=== PATIENT | female | born 1970 | race African-American/Black ===

== ENCOUNTER 2016-07-02 20:34 | Inpatient (IN) | payer MEDICAID ==
[~2016-07-02] VITALS: Ht 170.2 cm; Wt 72.1 kg
[2016-07-02] MEDS: ALBUTEROL FS 2.5 MG/3 ML VIAL.NEB NEB SCH (01:39)
[2016-07-02] MEDS ORDERED: PROPOFOL 100 ML IV ONE (20:39)
[2016-07-02] MEDS ORDERED: IV SET PRIMARY PUMP SET 1 EA INFUS.SET MC ONE ×6 (20:39→23:50)
[2016-07-02 20:50] VITALS: BP 87/45
[2016-07-02 20:59] LABS: KETONES,URINE Trace (NEGATIVE); LEUKOCYTE ESTERASE ,URINE Large (NEGATIVE)
[2016-07-02] MEDS ORDERED: IV NS 0.9% 1,000 ML BAG IV ONE (21:00)
[2016-07-02] MEDS ORDERED: ETOMIDATE 2 MG/ML VIAL IV ONE (21:00)
[2016-07-02] MEDS ORDERED: SUCCINYLCHOLINE CHLORIDE 20 MG/ML VIAL IV ONE (21:00)
[2016-07-02] MEDS ORDERED: PROPOFOL 100 ML IV PRN (21:00)
[2016-07-02] MEDS ORDERED: IV NS 0.9% 1,000 ML ONE (21:06)
[2016-07-02 21:19] LABS: ADD UA MICROSCOPIC YES
[2016-07-02 21:24] LABS: ADD URINE CULTURE YES; RBC,URINE TOO NUMEROUS TO COUN /HPF (0-2); WBC,URINE TOO NUMEROUS TO COUN /HPF (0-3)
[2016-07-02] MEDS ORDERED: ACETAMINOPHEN 650 MG/SUPP.RECT RC ONE ×2 (21:25→21:30)
[2016-07-02] MEDS ORDERED: KETOROLAC TROMETHAMINE INJ 30 MG/ML VIAL ONE (21:26)
[2016-07-02] MEDS ORDERED: IV NS 0.9% 1,000 ML IV ONE (21:30)
[2016-07-02] MEDS ORDERED: PIPERACILLIN /TAZOBACTAM 3.375 G VIAL IV ONE (21:30)
[2016-07-02] MEDS ORDERED: IV LR 1000 ML 1,000 ML IV ONE (21:30)
[2016-07-02] MEDS ORDERED: IV NS 0.9% 2,000 ML ONE (21:30)
[2016-07-02] MEDS ORDERED: KETOROLAC TROMETHAMINE INJ 30 MG/ML VIAL IV ONE (21:30)
[2016-07-02] MEDS ORDERED: PIPERACILLIN /TAZOBACTAM 3.375 G in IV D5W 50 ML IV ONE ×2 (21:30→22:30)
[2016-07-02] MEDS ORDERED: IV D5W 50 ML IV ONE (21:31)
[2016-07-02] MEDS ORDERED: IV LR 1000 ML 1,000 ML ONE (21:38)
[2016-07-02 22:07] LABS: ABG BASE EXCESS -11.5 mmol/L; ABG HCO3 13.5 mmol/L; ABG PCO2 28.1 mmHg (35.0-45.0); ABG PH 7.299 (7.350-7.450); ABG TOTAL HEMOGLOBIN 12.2 G/dL (12.0-16.0); O2Hb 97.9 % (94.0-97.0)
[2016-07-02] MEDS ORDERED: SODIUM BICARBONATE SYR 50 MEQ/50 ML DISP.SYRIN ONE (22:09)
[2016-07-02] MEDS ORDERED: NOREPINEPHRINE 4 MG/4 ML AMPUL IV ONE (22:20)
[2016-07-02] MEDS ORDERED: IV D5W 500 ML IV ONE (22:20)
[2016-07-02] MEDS ORDERED: SODIUM BICARBONATE SYR 50 MEQ/50 ML DISP.SYRIN IV ONE (22:30)
[2016-07-02] MEDS ORDERED: VANCOMYCIN 1 GM in IV D5W 250 ML IV SCH (22:30)
[2016-07-02] MEDS ORDERED: NOREPINEPHRINE 8 MG in IV D5W 500 ML IV PRN (22:30)
[2016-07-02] MEDS ORDERED: IV NS 0.9% 1,000 ML IV PRN (22:30)
[2016-07-02] MEDS ORDERED: ACETAMINOPHEN 650 MG/SUPP.RECT RC PRN (22:30)
[2016-07-02] MEDS ORDERED: ONDANSETRON HCL/PF 4 MG/2 ML VIAL IVP PRN (22:30)
[2016-07-02 22:42] LABS: BASOPHILS % (AUTO) 0.1 % (0.0-2.0); DIFF TOTAL % 100 %; HEMATOCRIT 36 % (33-45); HEMOGLOBIN 11.3 g/dL (11.5-14.8); LYMPHOCYTES # (AUTO) 1.1 /CMM (0.8-4.8); LYMPHOCYTES % (AUTO) 3.9 % (20.0-44.0); MEAN CORPUSCULAR HEMOGLOBIN 28 PG (26.0-33.0); MEAN CORPUSCULAR HGB CONC 32 g/dl (31.0-36.0); MEAN CORPUSCULAR VOLUME 88 fL (82-100); MONOCYTES # (AUTO) 0.6 /CMM (0.1-1.30); MONOCYTES % (AUTO) 2.3 % (2.0-12.0); NEUTROPHILS # (AUTO) 26.2 /CMM (1.8-8.9); NEUTROPHILS % (AUTO) 93.7 % (43.0-81.0); PLATELET COUNT (AUTO) 373 /CMM (150-450); RED BLOOD CELL COUNT(AUTO) 4.04 MIL/uL (4.0-5.2); WHITE BLOOD COUNT (AUTO) 27.9 K/uL (4.3-11.0)
[2016-07-02 22:52] LABS: ANION GAP 16 (5-14); CALCIUM, SERUM 8.4 mg/dL (8.5-10.1); CARBON DIOXIDE 24 mmol/L (21-32); CHLORIDE 117 mmol/L (98-107); CREATININE 4.2 mg/dL (0.6-1.3); GFR 14 mL/min (>60); GLUCOSE 147 mg/dL (74-106); POTASSIUM 3.9 mmol/L (3.5-5.1); SODIUM SERUM 153 mmol/L (136-145); UREA NITROGEN, BLOOD 78 mg/dL (7-18)
[2016-07-02 22:54] LABS: INR 1.24 (0.87-1.13); PROTHROMBIN TIME 13.4 SECS (9.5-12.7)
[2016-07-02 23:01] LABS: TROPONIN I 0.781 ng/mL (0.00-0.056)
[2016-07-02] MEDS ORDERED: ASPIRIN 300 MG/SUPP.RECT RC ONE (23:03)
[2016-07-02 23:04] LABS: ALANINE AMINOTRANSFERASE 23 U/L (12-78); ALBUMIN 1.9 g/dL (3.4-5.0); ASPARTATE AMINOTRANSFERASE 31 U/L (15-37); BILIRUBIN,DIRECT 0.1 mg/dL (0.0-0.2); BILIRUBIN,TOTAL 0.4 mg/dL (0.2-1.0); INDIRECT BILIRUBIN 0.3 mg/dL (0.0-1.1); TOTAL PROTEIN, SERUM 7.3 g/dL (6.4-8.2)
[2016-07-02 23:15] LABS: LACTIC ACID 5.2 mmol/L (0.4-2.0)
[2016-07-02 23:28] LABS: *LACTIC ACID REFLEX FLAG YES
[2016-07-02] MEDS ORDERED: DEXTROSE 50%-WATER 50 ML DISP.SYRIN IV PRN (23:30)
[2016-07-02] MEDS ORDERED: ASPIRIN 300 MG/SUPP.RECT RC PRN (23:30)
[2016-07-02 23:44] LABS: ANISOCYTOSIS 1+; BAND % (MANUAL) 12 % (0.0-5.0); BASOPHILS % (MANUAL) 0 % (0.0-2.0); EOSINOPHILS % (MANUAL) 0 % (0-4); LYMPHOCYTES % (MANUAL) 14 % (16-48); PLATELET ESTIMATE ADEQUATE
[2016-07-02 23:46] VITALS: BP 96/58
[2016-07-02] MEDS ORDERED: IV D5W 250 ML IV ONE (23:49)
[2016-07-02] MEDS ORDERED: VANCOMYCIN 1 GM VIAL ONE (23:49)
[2016-07-03] VITALS (111 sets, daily range): BP systolic 60–145; BP diastolic 36–78
[2016-07-03] MEDS ORDERED: IV NS 0.9% 2,000 ML ONE (00:01)
[2016-07-03] MEDS ORDERED: IV SET PRIMARY PUMP SET 1 EA INFUS.SET MC ONE ×5 (00:01→19:54)
[2016-07-03] MEDS: BLOOD SUGAR DIAGNOSTIC 1 EACH STRIP IN SCH ×4 (00:12→17:58)
[2016-07-03] MEDS ORDERED: INSULIN REGULAR, HUMAN 100 UNIT/ML 10 ML VIAL ONE (00:19)
[2016-07-03] MEDS: INSULIN REGULAR, HUMAN 100 UNIT/ML 3 ML VIAL SQ PRN ×4 (00:29→18:00)
[2016-07-03] MEDS ORDERED: IV NS 0.9% 1,000 ML BAG IV PRN (00:30)
[2016-07-03] MEDS ORDERED: IV NS 0.9% 1,000 ML ONE (01:05)
[2016-07-03 01:11] LABS: BASOPHILS % (AUTO) 0.1 % (0.0-2.0); DIFF TOTAL % 100 %; EOSINOPHILS % (AUTO) 0.1 % (0.0-6.0); HEMATOCRIT 36 % (33-45); HEMOGLOBIN 11.8 g/dL (11.5-14.8); LYMPHOCYTES # (AUTO) 2.5 /CMM (0.8-4.8); LYMPHOCYTES % (AUTO) 9.8 % (20.0-44.0); MEAN CORPUSCULAR HEMOGLOBIN 29 PG (26.0-33.0); MEAN CORPUSCULAR HGB CONC 33 g/dl (31.0-36.0); MEAN CORPUSCULAR VOLUME 88 fL (82-100); MONOCYTES # (AUTO) 0.8 /CMM (0.1-1.30); MONOCYTES % (AUTO) 3.2 % (2.0-12.0); NEUTROPHILS % (AUTO) 86.8 % (43.0-81.0); PLATELET COUNT (AUTO) 380 /CMM (150-450); WHITE BLOOD COUNT (AUTO) 25.3 K/uL (4.3-11.0)
[2016-07-03 01:19] LABS: CREATININE 4.1 mg/dL (0.6-1.3); POTASSIUM 3.5 mmol/L (3.5-5.1)
[2016-07-03 01:26] LABS: ALBUMIN 1.9 g/dL (3.4-5.0); BILIRUBIN,DIRECT 0.4 mg/dL (0.0-0.2); BILIRUBIN,TOTAL 0.9 mg/dL (0.2-1.0); INDIRECT BILIRUBIN 0.5 mg/dL (0.0-1.1); TOTAL PROTEIN, SERUM 7.5 g/dL (6.4-8.2)
[2016-07-03] MEDS ORDERED: ALBUTEROL FS 2.5 MG/3 ML VIAL.NEB ONE (01:38)
[2016-07-03 01:43] LABS: CREATINE KINASE MB 0.8 ng/mL (0-3.6)
[2016-07-03 01:51] LABS: INR 1.21 (0.87-1.13); PROTHROMBIN TIME 13.1 SECS (9.5-12.7)
[2016-07-03] MEDS: IV NS 0.9% 1,000 ML IV PRN ×3 (02:46→22:32)
[2016-07-03] MEDS: ALBUTEROL FS 2.5 MG/3 ML VIAL.NEB NEB SCH ×7 (02:52→23:30)
[2016-07-03] MEDS: PROPOFOL 100 ML IV PRN ×3 (04:13→22:13)
[2016-07-03] MEDS ORDERED: PIPERACILLIN /TAZOBACTAM 2.25 G VIAL IV ONE (04:31)
[2016-07-03] MEDS ORDERED: IV D5W 50 ML IV ONE (04:31)
[2016-07-03] MEDS ORDERED: SECONDARY IV SET 1 EA INFUS.SET MC ONE ×4 (04:31→15:48)
[2016-07-03] MEDS: PIPERACILLIN /TAZOBACTAM 2.25 G in IV D5W 50 ML IV SCH ×3 (04:45→21:00)
[2016-07-03 05:14] LABS: DIFF TOTAL % 100 %; HEMATOCRIT 36 % (33-45); HEMOGLOBIN 11.5 g/dL (11.5-14.8); LYMPHOCYTES # (AUTO) 3.6 /CMM (0.8-4.8); LYMPHOCYTES % (AUTO) 13.2 % (20.0-44.0); MEAN CORPUSCULAR HEMOGLOBIN 28 PG (26.0-33.0); MEAN CORPUSCULAR HGB CONC 32 g/dl (31.0-36.0); MEAN CORPUSCULAR VOLUME 88 fL (82-100); MONOCYTES # (AUTO) 0.8 /CMM (0.1-1.30); MONOCYTES % (AUTO) 2.9 % (2.0-12.0); NEUTROPHILS # (AUTO) 22.9 /CMM (1.8-8.9); NEUTROPHILS % (AUTO) 83.9 % (43.0-81.0); PLATELET COUNT (AUTO) 343 /CMM (150-450); RED BLOOD CELL COUNT(AUTO) 4.08 MIL/uL (4.0-5.2); WHITE BLOOD COUNT (AUTO) 27.4 K/uL (4.3-11.0)
[2016-07-03 05:27] LABS: THYROID STIMULATING HORMONE 1.481 uIU/mL (0.358-3.74)
[2016-07-03 05:32] LABS: ALBUMIN 1.8 g/dL (3.4-5.0); BILIRUBIN,TOTAL 0.5 mg/dL (0.2-1.0); CALCIUM, SERUM 7.6 mg/dL (8.5-10.1); CREATININE 3.6 mg/dL (0.6-1.3); PHOSPHORUS 1.8 mg/dL (2.5-4.9); POTASSIUM 3.5 mmol/L (3.5-5.1); TOTAL PROTEIN, SERUM 7.4 g/dL (6.4-8.2)
[2016-07-03 05:48] LABS: LACTIC ACID 3.5 mmol/L (0.4-2.0)
[2016-07-03 06:14] LABS: ANISOCYTOSIS 1+; BAND % (MANUAL) 10 % (0.0-5.0); BASOPHILS % (MANUAL) 0 % (0.0-2.0); EOSINOPHILS % (MANUAL) 0 % (0-4); LYMPHOCYTES % (MANUAL) 21 % (16-48); PLATELET ESTIMATE ADEQUATE
[2016-07-03] MEDS ORDERED: OXCA300O5 GT (07:45)
[2016-07-03] MEDS ORDERED: MULT-24 GT (07:45)
[2016-07-03] MEDS ORDERED: DOCU50LI GT (07:45)
[2016-07-03] MEDS ORDERED: ACID1TAB12 GT (07:45)
[2016-07-03] MEDS ORDERED: MAGN400O6 GT (07:45)
[2016-07-03] MEDS ORDERED: FAMO20TA8 GT (07:45)
[2016-07-03] MEDS ORDERED: ASCO500S2 GT (07:45)
[2016-07-03] MEDS ORDERED: CALC-911 GT (07:45)
[2016-07-03] MEDS ORDERED: INSU100V3 SQ (07:45)
[2016-07-03] MEDS ORDERED: ASPI81TA2 GT (07:45)
[2016-07-03] MEDS ORDERED: TOPI-67 GT (07:45)
[2016-07-03] MEDS ORDERED: ACET650S26 GT (07:45)
[2016-07-03] MEDS ORDERED: LEVE100S GT (07:45)
[2016-07-03] MEDS: NOREPINEPHRINE 16 MG in IV D5W 500 ML IV PRN (07:46)
[2016-07-03] MEDS ORDERED: VANCOMYCIN 1 GM in IV D5W 250 ML IV SCH (07:48)
[2016-07-03] MEDS: ACETAMINOPHEN 325 MG TABLET PO PRN ×2 (07:50→17:58)
[2016-07-03] MEDS: ASPIRIN 81 MG TAB.CHEW PO SCH (07:50)
[2016-07-03] MEDS: PANTOPRAZOLE 40 MG VIAL IV SCH (07:50)
[2016-07-03] MEDS: HEPARIN SODIUM, PORCINE 5000 UNITS/1 ML VIAL SQ SCH ×2 (07:52→21:01)
[2016-07-03 09:54] LABS: ABG BASE EXCESS -6.3 mmol/L; ABG HCO3 17.3 mmol/L; ABG PCO2 28.9 mmHg (35.0-45.0); ABG PH 7.396 (7.350-7.450); ABG TOTAL HEMOGLOBIN 11.7 G/dL (12.0-16.0); ALLEN TEST Pass; O2Hb 91.6 % (94.0-97.0)
[2016-07-03] MEDS: Z GUARD REMEDY 2 OZ OINT TP SCH ×2 (10:30→17:58)
[2016-07-03] MEDS ORDERED: LEVOFLOXACIN 500 MG /D5W 100ML 500 MG in PREMIX 1 EA IV ONE ×6 (12:00)
[2016-07-03 12:23] LABS: CHOLESTEROL 88 mg/dL (<200); HDL CHOLESTEROL 12 mg/dL (40-60); LDL 43 mg/dL (0-99); TRIGLYCERIDES 339 mg/dL (30-150)
[2016-07-03] MEDS ORDERED: IV NS 0.9% 250 ML BAG IV ONE (12:30)
[2016-07-03] MEDS ORDERED: ETOMIDATE 2 MG/ML VIAL IV ONE (13:54)
[2016-07-03] MEDS ORDERED: FEE PK DOSING 1 MIN EA MC ONE (14:32)
[2016-07-03] MEDS ORDERED: POTASSIUM PHOSPHATE MM 15 MMOL in IV D5W 250 ML IV SCH (20:00)
[2016-07-04] VITALS (92 sets, daily range): BP systolic 65–150; BP diastolic 40–92
[2016-07-04] MEDS: INSULIN REGULAR, HUMAN 100 UNIT/ML 3 ML VIAL SQ PRN ×4 (00:11→17:18)
[2016-07-04] MEDS: BLOOD SUGAR DIAGNOSTIC 1 EACH STRIP IN SCH ×5 (00:24→23:47)
[2016-07-04] MEDS: ALBUTEROL FS 2.5 MG/3 ML VIAL.NEB NEB SCH ×6 (03:19→23:39)
[2016-07-04 04:54] LABS: DIFF TOTAL % 100 %; EOSINOPHILS # (AUTO) 0.1 /CMM (0.0-0.7); EOSINOPHILS % (AUTO) 0.2 % (0.0-6.0); HEMATOCRIT 31 % (33-45); HEMOGLOBIN 10.1 g/dL (11.5-14.8); LYMPHOCYTES # (AUTO) 1.5 /CMM (0.8-4.8); LYMPHOCYTES % (AUTO) 4.8 % (20.0-44.0); MEAN CORPUSCULAR HEMOGLOBIN 29 PG (26.0-33.0); MEAN CORPUSCULAR HGB CONC 33 g/dl (31.0-36.0); MEAN CORPUSCULAR VOLUME 88 fL (82-100); MONOCYTES # (AUTO) 0.5 /CMM (0.1-1.30); MONOCYTES % (AUTO) 1.7 % (2.0-12.0); NEUTROPHILS # (AUTO) 28.9 /CMM (1.8-8.9); NEUTROPHILS % (AUTO) 93.3 % (43.0-81.0); PLATELET COUNT (AUTO) 254 /CMM (150-450); RED BLOOD CELL COUNT(AUTO) 3.52 MIL/uL (4.0-5.2)
[2016-07-04] MEDS: PROPOFOL 100 ML IV PRN ×3 (05:00→18:20)
[2016-07-04] MEDS: PIPERACILLIN /TAZOBACTAM 2.25 G in IV D5W 50 ML IV SCH ×3 (05:00→21:34)
[2016-07-04 05:05] LABS: WHITE BLOOD COUNT (AUTO) 30.9 K/uL (4.3-11.0)
[2016-07-04 05:14] LABS: CALCIUM, SERUM 7.4 mg/dL (8.5-10.1); CREATININE 2.8 mg/dL (0.6-1.3); POTASSIUM 3.7 mmol/L (3.5-5.1)
[2016-07-04] MEDS: NOREPINEPHRINE 16 MG in IV D5W 500 ML IV PRN ×2 (05:18→13:21)
[2016-07-04 05:23] LABS: LACTIC ACID 2.9 mmol/L (0.4-2.0)
[2016-07-04 05:44] LABS: *LACTIC ACID REFLEX FLAG YES
[2016-07-04 05:59] LABS: BAND % (MANUAL) 38 % (0.0-5.0); LYMPHOCYTES % (MANUAL) 3 % (16-48)
[2016-07-04 06:00] LABS: ANISOCYTOSIS 1+; BASOPHILS % (MANUAL) 0 % (0.0-2.0); EOSINOPHILS % (MANUAL) 0 % (0-4); PLATELET ESTIMATE ADEQUATE
[2016-07-04] MEDS: IV NS 0.9% 1,000 ML IV PRN ×2 (07:36→16:48)
[2016-07-04] MEDS: PANTOPRAZOLE 40 MG VIAL IV SCH (08:04)
[2016-07-04] MEDS: ASPIRIN 81 MG TAB.CHEW PO SCH (08:04)
[2016-07-04] MEDS: HEPARIN SODIUM, PORCINE 5000 UNITS/1 ML VIAL SQ SCH ×2 (08:16→21:37)
[2016-07-04] MEDS ORDERED: SECONDARY IV SET 1 EA INFUS.SET MC ONE (08:16)
[2016-07-04] MEDS: Z GUARD REMEDY 2 OZ OINT TP SCH ×2 (08:17→16:11)
[2016-07-04] MEDS: ACETAMINOPHEN 325 MG TABLET PO PRN (08:19)
[2016-07-04] MEDS ORDERED: DOCUSATE SODIUM LIQ 100 MG/10 ML UDC GT PRN (08:30)
[2016-07-04] MEDS ORDERED: ASPIRIN 81 MG TAB.CHEW GT SCH (09:00)
[2016-07-04] MEDS ORDERED: ASCORBIC ACID SYRUP 500 MG/5 ML UDC GT SCH (09:00)
[2016-07-04] MEDS: OXCARBAZEPINE 150 MG TABLET GT SCH ×2 (10:02→16:22)
[2016-07-04] MEDS: ACIDOPHILUS/BULGARICUS 1 EACH TAB.CHEW GT SCH ×2 (10:02→16:22)
[2016-07-04] MEDS: LEVETIRACETAM SOL (5 ML) 100 MG/ML UDC GT SCH ×2 (10:02→16:22)
[2016-07-04] MEDS: TOPIRAMATE 25 MG TABLET GT SCH ×2 (10:02→16:22)
[2016-07-04] MEDS: MULTIVITAMINS,THERAPEUTIC 1 UDTAB TABLET GT SCH (10:02)
[2016-07-04] MEDS: CALCIUM CARBONATE 500 MG TAB.CHEW GT SCH ×2 (10:11→16:22)
[2016-07-04] MEDS: ASCORBIC ACID 500 MG TABLET GT SCH (10:20)
[2016-07-04] MEDS ORDERED: VANCOMYCIN 1 GM in IV D5W 250 ML IV SCH (11:00)
[2016-07-04] MEDS ORDERED: IV SET PRIMARY PUMP SET 1 EA INFUS.SET MC ONE (11:29)
[2016-07-04] MEDS: MUPIROCIN OINT 2% 22 GM TUBE SCH (21:35)
[2016-07-05] VITALS (76 sets, daily range): BP systolic 88–134; BP diastolic 29–78
[2016-07-05] MEDS ORDERED: IV SET PRIMARY PUMP SET 1 EA INFUS.SET MC ONE ×4 (02:35→20:36)
[2016-07-05] MEDS ORDERED: IV D5W 250 ML IV ONE ×2 (02:35→20:36)
[2016-07-05] MEDS: PROPOFOL 100 ML IV PRN ×4 (02:35→21:42)
[2016-07-05] MEDS: IV NS 0.9% 1,000 ML IV PRN ×2 (03:27→23:32)
[2016-07-05] MEDS: ALBUTEROL FS 2.5 MG/3 ML VIAL.NEB NEB SCH ×6 (03:50→23:35)
[2016-07-05 04:55] LABS: WHITE BLOOD COUNT (AUTO) 28.2 K/uL (4.3-11.0)
[2016-07-05 04:56] LABS: DIFF TOTAL % 100 %; EOSINOPHILS # (AUTO) 0.1 /CMM (0.0-0.7); EOSINOPHILS % (AUTO) 0.3 % (0.0-6.0); HEMATOCRIT 25 % (33-45); HEMOGLOBIN 8.1 g/dL (11.5-14.8); LYMPHOCYTES % (AUTO) 3.7 % (20.0-44.0); MEAN CORPUSCULAR HEMOGLOBIN 28 PG (26.0-33.0); MEAN CORPUSCULAR HGB CONC 33 g/dl (31.0-36.0); MEAN CORPUSCULAR VOLUME 87 fL (82-100); MONOCYTES # (AUTO) 0.4 /CMM (0.1-1.30); MONOCYTES % (AUTO) 1.4 % (2.0-12.0); NEUTROPHILS # (AUTO) 26.7 /CMM (1.8-8.9); NEUTROPHILS % (AUTO) 94.6 % (43.0-81.0); PLATELET COUNT (AUTO) 238 /CMM (150-450); RED BLOOD CELL COUNT(AUTO) 2.86 MIL/uL (4.0-5.2)
[2016-07-05 05:03] LABS: CALCIUM, SERUM 7.7 mg/dL (8.5-10.1); CREATININE 2.4 mg/dL (0.6-1.3); POTASSIUM 3.1 mmol/L (3.5-5.1)
[2016-07-05 05:37] LABS: BAND % (MANUAL) 3 % (0.0-5.0); LYMPHOCYTES % (MANUAL) 6 % (16-48); PLATELET ESTIMATE ADEQUATE
[2016-07-05 05:39] LABS: ANISOCYTOSIS 1+
[2016-07-05] MEDS: PIPERACILLIN /TAZOBACTAM 2.25 G in IV D5W 50 ML IV SCH ×3 (05:52→20:35)
[2016-07-05] MEDS: BLOOD SUGAR DIAGNOSTIC 1 EACH STRIP IN SCH ×3 (06:25→17:22)
[2016-07-05] MEDS: INSULIN REGULAR, HUMAN 100 UNIT/ML 3 ML VIAL SQ PRN ×2 (06:33→11:30)
[2016-07-05] MEDS: CALCIUM CARBONATE 500 MG TAB.CHEW GT SCH ×2 (08:51→17:16)
[2016-07-05] MEDS: PANTOPRAZOLE 40 MG VIAL IV SCH (08:51)
[2016-07-05] MEDS: ACIDOPHILUS/BULGARICUS 1 EACH TAB.CHEW GT SCH ×2 (08:51→17:16)
[2016-07-05] MEDS: OXCARBAZEPINE 150 MG TABLET GT SCH ×2 (08:51→17:16)
[2016-07-05] MEDS: TOPIRAMATE 25 MG TABLET GT SCH ×2 (08:52→17:16)
[2016-07-05] MEDS: ASCORBIC ACID 500 MG TABLET GT SCH (08:52)
[2016-07-05] MEDS: MULTIVITAMINS,THERAPEUTIC 1 UDTAB TABLET GT SCH (08:52)
[2016-07-05] MEDS: LEVETIRACETAM SOL (5 ML) 100 MG/ML UDC GT SCH ×2 (08:52→17:16)
[2016-07-05] MEDS: ASPIRIN 81 MG TAB.CHEW PO SCH (08:52)
[2016-07-05] MEDS: MUPIROCIN OINT 2% 22 GM TUBE SCH ×2 (08:53→20:36)
[2016-07-05] MEDS: Z GUARD REMEDY 2 OZ OINT TP SCH ×2 (08:53→17:16)
[2016-07-05] MEDS: ACETAMINOPHEN 325 MG TABLET PO PRN (08:55)
[2016-07-05] MEDS: HEPARIN SODIUM, PORCINE 5000 UNITS/1 ML VIAL SQ SCH ×2 (08:58→20:51)
[2016-07-05] MEDS ORDERED: POTASSIUM CHLORIDE 20 MEQ TAB.PRT.SR PO ONE (09:00)
[2016-07-05] MEDS: VANCOMYCIN 1 GM in IV D5W 250 ML IV SCH (10:57)
[2016-07-05 11:46] LABS: ABG BASE EXCESS -7.8 mmol/L; ABG HCO3 16.5 mmol/L; ABG PCO2 29.7 mmHg (35.0-45.0); ABG PH 7.362 (7.350-7.450); ABG PO2 71.9 mmHg (75.0-100.0); ABG TOTAL HEMOGLOBIN 11.3 G/dL (12.0-16.0); ALLEN TEST Pass; AaDO2 179.1 mmHg; O2Hb 91.9 % (94.0-97.0)
[2016-07-05] MEDS ORDERED: LEVOFLOXACIN 250 MG /D5W 50 ML 250 MG in PREMIX 1 EA IV SCH (12:00)
[2016-07-05] MEDS: MICAFUNGIN SODIUM 100 MG in IV NS 0.9% 100 ML IV SCH (13:11)
[2016-07-05] MEDS: NOREPINEPHRINE 16 MG in IV D5W 500 ML IV PRN (17:35)
[2016-07-06] VITALS (78 sets, daily range): BP systolic 88–135; BP diastolic 23–65
[2016-07-06] MEDS: BLOOD SUGAR DIAGNOSTIC 1 EACH STRIP IN SCH ×5 (00:02→23:16)
[2016-07-06] MEDS: INSULIN REGULAR, HUMAN 100 UNIT/ML 3 ML VIAL SQ PRN ×3 (00:06→13:03)
[2016-07-06] MEDS: ALBUTEROL FS 2.5 MG/3 ML VIAL.NEB NEB SCH ×5 (02:38→20:16)
[2016-07-06] MEDS: PIPERACILLIN /TAZOBACTAM 2.25 G in IV D5W 50 ML IV SCH (04:28)
[2016-07-06 04:56] LABS: DIFF TOTAL % 100 %; EOSINOPHILS # (AUTO) 0.4 /CMM (0.0-0.7); EOSINOPHILS % (AUTO) 1.8 % (0.0-6.0); HEMATOCRIT 24 % (33-45); HEMOGLOBIN 7.9 g/dL (11.5-14.8); LYMPHOCYTES # (AUTO) 1.4 /CMM (0.8-4.8); LYMPHOCYTES % (AUTO) 5.9 % (20.0-44.0); MEAN CORPUSCULAR HEMOGLOBIN 28 PG (26.0-33.0); MEAN CORPUSCULAR HGB CONC 33 g/dl (31.0-36.0); MEAN CORPUSCULAR VOLUME 87 fL (82-100); MONOCYTES # (AUTO) 0.5 /CMM (0.1-1.30); NEUTROPHILS # (AUTO) 20.9 /CMM (1.8-8.9); NEUTROPHILS % (AUTO) 90.3 % (43.0-81.0); PLATELET COUNT (AUTO) 234 /CMM (150-450); WHITE BLOOD COUNT (AUTO) 23.2 K/uL (4.3-11.0)
[2016-07-06 04:58] LABS: CALCIUM, SERUM 7.9 mg/dL (8.5-10.1)
[2016-07-06 05:18] LABS: POTASSIUM 2.8 mmol/L (3.5-5.1)
[2016-07-06] MEDS: PROPOFOL 100 ML IV PRN ×4 (05:19→22:46)
[2016-07-06 05:46] LABS: ANISOCYTOSIS 1+; EOSINOPHILS % (MANUAL) 3 % (0-4); LYMPHOCYTES % (MANUAL) 10 % (16-48); PLATELET ESTIMATE ADEQUATE
[2016-07-06] MEDS ORDERED: POTASSIUM CL. PREMIX PERIPHER. 50 ML ONE (06:22)
[2016-07-06] MEDS ORDERED: IV SET PRIMARY PUMP SET 1 EA INFUS.SET MC ONE ×4 (06:22→22:46)
[2016-07-06] MEDS: POTASSIUM CL. PREMIX PERIPHER. 50 ML IV SCH ×4 (06:26→11:48)
[2016-07-06] MEDS: LEVETIRACETAM SOL (5 ML) 100 MG/ML UDC GT SCH ×2 (08:43→16:23)
[2016-07-06] MEDS: ACIDOPHILUS/BULGARICUS 1 EACH TAB.CHEW GT SCH ×2 (08:43→16:22)
[2016-07-06] MEDS: MULTIVITAMINS,THERAPEUTIC 1 UDTAB TABLET GT SCH (08:44)
[2016-07-06] MEDS: TOPIRAMATE 25 MG TABLET GT SCH ×2 (08:45→16:21)
[2016-07-06] MEDS: OXCARBAZEPINE 150 MG TABLET GT SCH ×2 (08:45→16:22)
[2016-07-06] MEDS: CALCIUM CARBONATE 500 MG TAB.CHEW GT SCH ×2 (08:46→16:22)
[2016-07-06] MEDS: ASCORBIC ACID 500 MG TABLET GT SCH (08:46)
[2016-07-06] MEDS: MUPIROCIN OINT 2% 22 GM TUBE SCH ×2 (08:47→20:12)
[2016-07-06] MEDS: ASPIRIN 81 MG TAB.CHEW PO SCH (08:48)
[2016-07-06 08:49] LABS: ABG BASE EXCESS -8.7 mmol/L; ABG HCO3 15.9 mmol/L; ABG NOTIFIED BY AS RRT.; ABG PCO2 29.5 mmHg (35.0-45.0); ABG TOTAL HEMOGLOBIN 8.3 G/dL (12.0-16.0); ALLEN TEST Pass; AaDO2 219.3 mmHg; O2Hb 94.5 % (94.0-97.0)
[2016-07-06] MEDS: HEPARIN SODIUM, PORCINE 5000 UNITS/1 ML VIAL SQ SCH ×2 (08:50→20:11)
[2016-07-06] MEDS ORDERED: POTASSIUM CL. PREMIX PERIPHER. 50 ML IV SCH (09:00)
[2016-07-06] MEDS: Z GUARD REMEDY 2 OZ OINT TP SCH ×2 (09:00→17:00)
[2016-07-06] MEDS: MICAFUNGIN SODIUM 100 MG in IV NS 0.9% 100 ML IV SCH (09:03)
[2016-07-06] MEDS ORDERED: IV D5W 250 ML IV ONE ×2 (10:01→13:41)
[2016-07-06] MEDS: PANTOPRAZOLE 40 MG VIAL IV SCH (10:06)
[2016-07-06] MEDS: VANCOMYCIN 1 GM in IV D5W 250 ML IV SCH (10:24)
[2016-07-06] MEDS: Z GUARD REMEDY 2 OZ OINT TP PRN ×2 (12:45→12:48)
[2016-07-06] MEDS: CLOTRIMAZOLE 1% 15 GM TUBE TP SCH ×2 (12:48→16:24)
[2016-07-06] MEDS: IV NS 0.9% 1,000 ML IV PRN ×2 (13:38→23:17)
[2016-07-06] MEDS: CEFEPIME 2 GM in IV D5W 100 ML IV SCH (17:21)
[2016-07-06] MEDS ORDERED: CEFEPIME 1 GM VIAL IV SCH ×2 (21:00)
[2016-07-07] VITALS (99 sets, daily range): BP systolic 84–134; BP diastolic 43–78
[2016-07-07] MEDS: ALBUTEROL FS 2.5 MG/3 ML VIAL.NEB NEB SCH ×6 (00:13→20:06)
[2016-07-07 05:00] LABS: CALCIUM, SERUM 7.8 mg/dL (8.5-10.1); CREATININE 1.8 mg/dL (0.6-1.3); POTASSIUM 3.1 mmol/L (3.5-5.1)
[2016-07-07 05:13] LABS: BASOPHILS % (AUTO) 0.1 % (0.0-2.0); DIFF TOTAL % 100 %; EOSINOPHILS # (AUTO) 0.5 /CMM (0.0-0.7); HEMATOCRIT 24 % (33-45); HEMOGLOBIN 7.7 g/dL (11.5-14.8); LYMPHOCYTES # (AUTO) 1.9 /CMM (0.8-4.8); MEAN CORPUSCULAR HEMOGLOBIN 29 PG (26.0-33.0); MEAN CORPUSCULAR HGB CONC 32 g/dl (31.0-36.0); MEAN CORPUSCULAR VOLUME 88 fL (82-100); MONOCYTES # (AUTO) 0.5 /CMM (0.1-1.30); NEUTROPHILS # (AUTO) 20.7 /CMM (1.8-8.9); NEUTROPHILS % (AUTO) 87.9 % (43.0-81.0); PLATELET COUNT (AUTO) 250 /CMM (150-450); RED BLOOD CELL COUNT(AUTO) 2.69 MIL/uL (4.0-5.2); WHITE BLOOD COUNT (AUTO) 23.5 K/uL (4.3-11.0)
[2016-07-07] MEDS: CEFEPIME 2 GM in IV D5W 100 ML IV SCH ×2 (05:47→17:31)
[2016-07-07] MEDS: BLOOD SUGAR DIAGNOSTIC 1 EACH STRIP IN SCH ×4 (05:47→23:29)
[2016-07-07] MEDS ORDERED: IV NS 0.9% 500 ML IV ONE (08:12)
[2016-07-07] MEDS ORDERED: IV SET PRIMARY PUMP SET 1 EA INFUS.SET MC ONE (08:30)
[2016-07-07] MEDS ORDERED: SECONDARY IV SET 1 EA INFUS.SET MC ONE (08:31)
[2016-07-07] MEDS ORDERED: IV NS 0.9% 250 ML IV ONE (08:31)
[2016-07-07] MEDS ORDERED: BLOOD IV SET 1 EA INFUS.SET MC ONE (08:31)
[2016-07-07] MEDS: PANTOPRAZOLE 40 MG VIAL IV SCH (08:39)
[2016-07-07] MEDS: TOPIRAMATE 25 MG TABLET GT SCH ×2 (08:39→16:17)
[2016-07-07] MEDS: LEVETIRACETAM SOL (5 ML) 100 MG/ML UDC GT SCH ×2 (08:39→16:17)
[2016-07-07] MEDS: HEPARIN SODIUM, PORCINE 5000 UNITS/1 ML VIAL SQ SCH ×2 (08:39→21:08)
[2016-07-07] MEDS: OXCARBAZEPINE 150 MG TABLET GT SCH ×2 (08:39→16:17)
[2016-07-07] MEDS: ASCORBIC ACID 500 MG TABLET GT SCH (08:39)
[2016-07-07] MEDS: ASPIRIN 81 MG TAB.CHEW PO SCH (08:40)
[2016-07-07] MEDS: MULTIVITAMINS,THERAPEUTIC 1 UDTAB TABLET GT SCH (08:40)
[2016-07-07] MEDS: CLOTRIMAZOLE 1% 15 GM TUBE TP SCH ×2 (08:40→16:18)
[2016-07-07] MEDS: CALCIUM CARBONATE 500 MG TAB.CHEW GT SCH ×2 (08:40→16:17)
[2016-07-07] MEDS: MUPIROCIN OINT 2% 22 GM TUBE SCH ×2 (08:40→21:10)
[2016-07-07] MEDS: MICAFUNGIN SODIUM 100 MG in IV NS 0.9% 100 ML IV SCH (08:40)
[2016-07-07] MEDS: ACIDOPHILUS/BULGARICUS 1 EACH TAB.CHEW GT SCH ×2 (09:07→16:17)
[2016-07-07] MEDS: Z GUARD REMEDY 2 OZ OINT TP SCH ×3 (09:09→16:18)
[2016-07-07] MEDS: VANCOMYCIN 1 GM in IV D5W 250 ML IV SCH (10:24)
[2016-07-07] MEDS ORDERED: FUROSEMIDE 40 MG/4 ML VIAL IV ONE (10:30)
[2016-07-07] MEDS ORDERED: POTASSIUM CHLORIDE 20 MEQ POWDER PACKET GT ONE (10:30)
[2016-07-07] MEDS: PROPOFOL 100 ML IV PRN ×3 (12:48→22:07)
[2016-07-07] MEDS ORDERED: LORAZEPAM INJ 2 MG/ML VIAL IV PRN (13:00)
[2016-07-07 14:39] LABS: ABG PCO2 31.3 mmHg (35.0-45.0); ABG PH 7.326 (7.350-7.450); ABG PO2 77.3 mmHg (75.0-100.0); ABG TOTAL HEMOGLOBIN 9.2 G/dL (12.0-16.0); ALLEN TEST Pass; AaDO2 171.9 mmHg; O2Hb 91.9 % (94.0-97.0)
[2016-07-07] MEDS: IV D5W 1,000 ML IV PRN (15:55)
[2016-07-08] VITALS (67 sets, daily range): BP systolic 84–128; BP diastolic 36–76
[2016-07-08] MEDS: ALBUTEROL FS 2.5 MG/3 ML VIAL.NEB NEB SCH ×7 (00:10→22:50)
[2016-07-08] MEDS: PROPOFOL 100 ML IV PRN ×3 (04:25→21:42)
[2016-07-08] MEDS ORDERED: VANCOMYCIN 1 GM in IV D5W 250 ML IV SCH (05:00)
[2016-07-08 05:06] LABS: CALCIUM, SERUM 8.1 mg/dL (8.5-10.1); CREATININE 2.2 mg/dL (0.6-1.3); POTASSIUM 3.3 mmol/L (3.5-5.1)
[2016-07-08] MEDS: BLOOD SUGAR DIAGNOSTIC 1 EACH STRIP IN SCH ×4 (05:57→23:50)
[2016-07-08] MEDS: CEFEPIME 2 GM in IV D5W 100 ML IV SCH ×2 (06:17→17:35)
[2016-07-08] MEDS: OXCARBAZEPINE 150 MG TABLET GT SCH ×2 (08:02→17:34)
[2016-07-08] MEDS: LEVETIRACETAM SOL (5 ML) 100 MG/ML UDC GT SCH ×2 (08:02→17:34)
[2016-07-08] MEDS: ASPIRIN 81 MG TAB.CHEW PO SCH (08:02)
[2016-07-08] MEDS: TOPIRAMATE 25 MG TABLET GT SCH ×2 (08:02→17:34)
[2016-07-08] MEDS: PANTOPRAZOLE 40 MG VIAL IV SCH (08:02)
[2016-07-08] MEDS: Z GUARD REMEDY 2 OZ OINT TP SCH ×2 (08:03→17:35)
[2016-07-08] MEDS: MULTIVITAMINS,THERAPEUTIC 1 UDTAB TABLET GT SCH (08:03)
[2016-07-08] MEDS: CALCIUM CARBONATE 500 MG TAB.CHEW GT SCH ×2 (08:03→17:34)
[2016-07-08] MEDS: ACIDOPHILUS/BULGARICUS 1 EACH TAB.CHEW GT SCH ×2 (08:03→17:34)
[2016-07-08] MEDS: ASCORBIC ACID 500 MG TABLET GT SCH (08:03)
[2016-07-08] MEDS: MUPIROCIN OINT 2% 22 GM TUBE SCH ×2 (08:03→21:00)
[2016-07-08] MEDS: CLOTRIMAZOLE 1% 15 GM TUBE TP SCH ×2 (08:03→17:35)
[2016-07-08] MEDS: MICAFUNGIN SODIUM 100 MG in IV NS 0.9% 100 ML IV SCH (08:04)
[2016-07-08] MEDS: HEPARIN SODIUM, PORCINE 5000 UNITS/1 ML VIAL SQ SCH ×2 (09:00→20:56)
[2016-07-08] MEDS ORDERED: POTASSIUM CHLORIDE 20 MEQ POWDER PACKET GT ONE (10:00)
[2016-07-08] MEDS ORDERED: BLOOD IV SET 1 EA INFUS.SET MC ONE (11:45)
[2016-07-08] MEDS ORDERED: IV NS 0.9% 250 ML IV ONE (11:46)
[2016-07-08] MEDS ORDERED: IV SET PRIMARY PUMP SET 1 EA INFUS.SET MC ONE ×4 (12:29→15:17)
[2016-07-08] MEDS: ALBUMIN 25% 25 GM in PREMIX 1 EA IV SCH ×2 (12:33→13:53)
[2016-07-08] MEDS: IV D5W 1,000 ML IV PRN (13:06)
[2016-07-08] MEDS ORDERED: phenytoin SODIUM IV 1,000 MG in IV NS 0.9% 100 ML IV STA (13:46)
[2016-07-08] MEDS: ACETAMINOPHEN 325 MG TABLET PO PRN (14:06)
[2016-07-08] MEDS: NOREPINEPHRINE 16 MG in IV D5W 500 ML IV PRN (15:26)
[2016-07-08] MEDS: PHENYTOIN SODIUM IV 50 MG/ML VIAL IV SCH (20:54)
[2016-07-08] MEDS ORDERED: PHENYTOIN SODIUM IV 50 MG/ML VIAL IV SCH (21:00)
[2016-07-08] MEDS: INSULIN REGULAR, HUMAN 100 UNIT/ML 3 ML VIAL SQ PRN (23:50)
[2016-07-09] VITALS (108 sets, daily range): BP systolic 52–126; BP diastolic 37–75
[2016-07-09] MEDS: ALBUTEROL FS 2.5 MG/3 ML VIAL.NEB NEB SCH ×6 (02:38→23:02)
[2016-07-09] MEDS: PROPOFOL 100 ML IV PRN ×2 (03:03→08:53)
[2016-07-09 04:16] LABS: BASOPHILS % (AUTO) 0.1 % (0.0-2.0); DIFF TOTAL % 100 %; EOSINOPHILS % (AUTO) 4.8 % (0.0-6.0); HEMATOCRIT 28 % (33-45); HEMOGLOBIN 9.1 g/dL (11.5-14.8); LYMPHOCYTES # (AUTO) 2.8 /CMM (0.8-4.8); LYMPHOCYTES % (AUTO) 14.4 % (20.0-44.0); MEAN CORPUSCULAR HEMOGLOBIN 28 PG (26.0-33.0); MEAN CORPUSCULAR HGB CONC 33 g/dl (31.0-36.0); MEAN CORPUSCULAR VOLUME 86 fL (82-100); MONOCYTES # (AUTO) 0.5 /CMM (0.1-1.30); MONOCYTES % (AUTO) 2.7 % (2.0-12.0); NEUTROPHILS # (AUTO) 15.4 /CMM (1.8-8.9); PLATELET COUNT (AUTO) 248 /CMM (150-450); RED BLOOD CELL COUNT(AUTO) 3.22 MIL/uL (4.0-5.2); WHITE BLOOD COUNT (AUTO) 19.7 K/uL (4.3-11.0)
[2016-07-09 04:26] LABS: CALCIUM, SERUM 8.4 mg/dL (8.5-10.1); CREATININE 2.4 mg/dL (0.6-1.3); PHOSPHORUS 3.1 mg/dL (2.5-4.9); POTASSIUM 3.3 mmol/L (3.5-5.1)
[2016-07-09] MEDS: PHENYTOIN SODIUM IV 50 MG/ML VIAL IV SCH ×3 (04:43→20:24)
[2016-07-09] MEDS ORDERED: VANCOMYCIN 1 GM in IV D5W 250 ML IV SCH (05:00)
[2016-07-09] MEDS: BLOOD SUGAR DIAGNOSTIC 1 EACH STRIP IN SCH ×4 (05:45→23:43)
[2016-07-09] MEDS: CEFEPIME 2 GM in IV D5W 100 ML IV SCH ×2 (05:46→17:12)
[2016-07-09] MEDS ORDERED: IV SET PRIMARY PUMP SET 1 EA INFUS.SET MC ONE ×4 (08:27→17:22)
[2016-07-09] MEDS: ACIDOPHILUS/BULGARICUS 1 EACH TAB.CHEW GT SCH ×2 (08:53→16:54)
[2016-07-09] MEDS: OXCARBAZEPINE 150 MG TABLET GT SCH ×2 (08:53→16:54)
[2016-07-09] MEDS: LEVETIRACETAM SOL (5 ML) 100 MG/ML UDC GT SCH ×2 (08:54→16:54)
[2016-07-09] MEDS: PANTOPRAZOLE 40 MG VIAL IV SCH (08:54)
[2016-07-09] MEDS: CALCIUM CARBONATE 500 MG TAB.CHEW GT SCH ×2 (08:54→16:54)
[2016-07-09] MEDS: ASCORBIC ACID 500 MG TABLET GT SCH (08:54)
[2016-07-09] MEDS: TOPIRAMATE 25 MG TABLET GT SCH ×2 (08:54→16:54)
[2016-07-09] MEDS: MULTIVITAMINS,THERAPEUTIC 1 UDTAB TABLET GT SCH (08:54)
[2016-07-09] MEDS: Z GUARD REMEDY 2 OZ OINT TP SCH ×2 (08:54→16:55)
[2016-07-09] MEDS: ASPIRIN 81 MG TAB.CHEW PO SCH (08:54)
[2016-07-09] MEDS: MUPIROCIN OINT 2% 22 GM TUBE SCH ×2 (08:55→20:24)
[2016-07-09] MEDS: CLOTRIMAZOLE 1% 15 GM TUBE TP SCH ×2 (08:55→16:55)
[2016-07-09] MEDS: HEPARIN SODIUM, PORCINE 5000 UNITS/1 ML VIAL SQ SCH ×2 (08:56→20:25)
[2016-07-09] MEDS ORDERED: POTASSIUM CL. PREMIX PERIPHER. 50 ML IV SCH (09:30)
[2016-07-09] MEDS ORDERED: POTASSIUM CHLORIDE 20 MEQ POWDER PACKET NG SCH (09:30)
[2016-07-09] MEDS: MICAFUNGIN SODIUM 100 MG in IV NS 0.9% 100 ML IV SCH (09:36)
[2016-07-09] MEDS ORDERED: phenytoin SODIUM IV 400 MG in IV NS 0.9% 50 ML IV STA (09:58)
[2016-07-09] MEDS: FUROSEMIDE 20 MG/2 ML VIAL IV SCH (10:29)
[2016-07-09] MEDS: Sodium Bicarbonate 100 MEQ in IV D5W 1,000 ML IV PRN (10:29)
[2016-07-09] MEDS: ACETAMINOPHEN 325 MG TABLET PO PRN ×2 (12:04→18:24)
[2016-07-09] MEDS: INSULIN REGULAR, HUMAN 100 UNIT/ML 3 ML VIAL SQ PRN (12:07)
[2016-07-09] MEDS: NOREPINEPHRINE 16 MG in IV D5W 500 ML IV PRN (17:12)
[2016-07-09] MEDS ORDERED: IV NS 0.9% 250 ML IV ONE (17:22)
[2016-07-09] MEDS: Z GUARD REMEDY 2 OZ OINT TP PRN (20:24)
[2016-07-10] VITALS (108 sets, daily range): BP systolic 85–119; BP diastolic 44–67
[2016-07-10] MEDS: ALBUTEROL FS 2.5 MG/3 ML VIAL.NEB NEB SCH ×6 (03:30→23:12)
[2016-07-10] MEDS: PHENYTOIN SODIUM IV 50 MG/ML VIAL IV SCH ×3 (05:00→20:46)
[2016-07-10] MEDS: CEFEPIME 2 GM in IV D5W 100 ML IV SCH (05:00)
[2016-07-10] MEDS: BLOOD SUGAR DIAGNOSTIC 1 EACH STRIP IN SCH ×3 (05:00→17:26)
[2016-07-10 05:07] LABS: BASOPHILS % (AUTO) 0.1 % (0.0-2.0); DIFF TOTAL % 100 %; EOSINOPHILS # (AUTO) 0.4 /CMM (0.0-0.7); EOSINOPHILS % (AUTO) 1.7 % (0.0-6.0); HEMATOCRIT 28 % (33-45); HEMOGLOBIN 8.9 g/dL (11.5-14.8); LYMPHOCYTES # (AUTO) 2.8 /CMM (0.8-4.8); LYMPHOCYTES % (AUTO) 11.1 % (20.0-44.0); MEAN CORPUSCULAR HEMOGLOBIN 28 PG (26.0-33.0); MEAN CORPUSCULAR HGB CONC 32 g/dl (31.0-36.0); MEAN CORPUSCULAR VOLUME 86 fL (82-100); MONOCYTES # (AUTO) 0.8 /CMM (0.1-1.30); MONOCYTES % (AUTO) 3.1 % (2.0-12.0); NEUTROPHILS # (AUTO) 21.4 /CMM (1.8-8.9); PLATELET COUNT (AUTO) 251 /CMM (150-450); RED BLOOD CELL COUNT(AUTO) 3.22 MIL/uL (4.0-5.2); WHITE BLOOD COUNT (AUTO) 25.4 K/uL (4.3-11.0)
[2016-07-10 05:21] LABS: ALBUMIN 1.6 g/dL (3.4-5.0); BILIRUBIN,TOTAL 0.9 mg/dL (0.2-1.0); CALCIUM, SERUM 8.6 mg/dL (8.5-10.1); CREATININE 2.7 mg/dL (0.6-1.3); PHOSPHORUS 3.8 mg/dL (2.5-4.9); POTASSIUM 3.1 mmol/L (3.5-5.1); TOTAL PROTEIN, SERUM 7.7 g/dL (6.4-8.2)
[2016-07-10] MEDS: ASCORBIC ACID 500 MG TABLET GT SCH (08:00)
[2016-07-10] MEDS: Sodium Bicarbonate 100 MEQ in IV D5W 1,000 ML IV PRN (08:00)
[2016-07-10] MEDS: PANTOPRAZOLE 40 MG VIAL IV SCH (08:00)
[2016-07-10] MEDS: FUROSEMIDE 20 MG/2 ML VIAL IV SCH (08:00)
[2016-07-10] MEDS ORDERED: VANCOMYCIN 0.75 GM in IV D5W 250 ML IV SCH ×2 (08:00→21:00)
[2016-07-10] MEDS: CALCIUM CARBONATE 500 MG TAB.CHEW GT SCH ×2 (08:00→16:22)
[2016-07-10] MEDS: LEVETIRACETAM SOL (5 ML) 100 MG/ML UDC GT SCH ×2 (08:00→16:22)
[2016-07-10] MEDS: MUPIROCIN OINT 2% 22 GM TUBE SCH ×2 (08:01→20:46)
[2016-07-10] MEDS: OXCARBAZEPINE 150 MG TABLET GT SCH ×2 (08:01→16:22)
[2016-07-10] MEDS: TOPIRAMATE 25 MG TABLET GT SCH ×2 (08:01→16:22)
[2016-07-10] MEDS: ASPIRIN 81 MG TAB.CHEW PO SCH (08:01)
[2016-07-10] MEDS: ACIDOPHILUS/BULGARICUS 1 EACH TAB.CHEW GT SCH ×2 (08:01→16:22)
[2016-07-10] MEDS: CLOTRIMAZOLE 1% 15 GM TUBE TP SCH ×2 (08:01→16:22)
[2016-07-10] MEDS: MULTIVITAMINS,THERAPEUTIC 1 UDTAB TABLET GT SCH (08:01)
[2016-07-10] MEDS: Z GUARD REMEDY 2 OZ OINT TP SCH ×2 (08:02→16:22)
[2016-07-10] MEDS: HEPARIN SODIUM, PORCINE 5000 UNITS/1 ML VIAL SQ SCH (08:05)
[2016-07-10] MEDS: MICAFUNGIN SODIUM 100 MG in IV NS 0.9% 100 ML IV SCH (08:55)
[2016-07-10] MEDS ORDERED: ALBUMIN 25% 25 GM in PREMIX 1 EA IV SCH (10:00)
[2016-07-10] MEDS ORDERED: POTASSIUM CHLORIDE 20 MEQ POWDER PACKET GT ONE (10:00)
[2016-07-10] MEDS ORDERED: IV SET PRIMARY PUMP SET 1 EA INFUS.SET MC ONE (10:45)
[2016-07-10] MEDS ORDERED: MEROPENEM 0.5 G in IV NS 0.9% 100 ML IV SCH (12:00)
[2016-07-10] MEDS: ALBUMIN 25% 25 GM in PREMIX 1 EA IV SCH ×2 (12:34→23:01)
[2016-07-10] MEDS: ACETAMINOPHEN 325 MG TABLET PO PRN (12:35)
[2016-07-10] MEDS: MEROPENEM 500 MG in IV NS 0.9% 50 ML IV SCH (13:16)
[2016-07-10 17:12] LABS: KETONES,URINE NEGATIVE (NEGATIVE); LEUKOCYTE ESTERASE ,URINE 2+ (NEGATIVE)
[2016-07-10 17:20] LABS: CREATININE, URINE 18.5 MG/DL (30.0-125.0)
[2016-07-10] MEDS: NOREPINEPHRINE 16 MG in IV D5W 500 ML IV PRN (17:26)
[2016-07-10 18:06] LABS: ADD UA MICROSCOPIC YES; ADD URINE CULTURE YES
[2016-07-11] VITALS (77 sets, daily range): BP systolic 51–133; BP diastolic 48–99
[2016-07-11] MEDS: BLOOD SUGAR DIAGNOSTIC 1 EACH STRIP IN SCH ×5 (00:50→23:45)
[2016-07-11] MEDS: ALBUTEROL FS 2.5 MG/3 ML VIAL.NEB NEB SCH ×6 (03:20→23:32)
[2016-07-11] MEDS: Sodium Bicarbonate 100 MEQ in IV D5W 1,000 ML IV PRN (05:07)
[2016-07-11] MEDS: PHENYTOIN SODIUM IV 50 MG/ML VIAL IV SCH ×3 (05:07→21:01)
[2016-07-11 05:11] LABS: DIFF TOTAL % 100 %; EOSINOPHILS # (AUTO) 0.6 /CMM (0.0-0.7); EOSINOPHILS % (AUTO) 2.3 % (0.0-6.0); HEMATOCRIT 25 % (33-45); HEMOGLOBIN 8.4 g/dL (11.5-14.8); LYMPHOCYTES # (AUTO) 2.6 /CMM (0.8-4.8); LYMPHOCYTES % (AUTO) 9.9 % (20.0-44.0); MEAN CORPUSCULAR HEMOGLOBIN 28 PG (26.0-33.0); MEAN CORPUSCULAR HGB CONC 33 g/dl (31.0-36.0); MEAN CORPUSCULAR VOLUME 86 fL (82-100); MONOCYTES # (AUTO) 0.6 /CMM (0.1-1.30); MONOCYTES % (AUTO) 2.4 % (2.0-12.0); NEUTROPHILS # (AUTO) 22.2 /CMM (1.8-8.9); NEUTROPHILS % (AUTO) 85.4 % (43.0-81.0); PLATELET COUNT (AUTO) 216 /CMM (150-450); RED BLOOD CELL COUNT(AUTO) 2.94 MIL/uL (4.0-5.2)
[2016-07-11] MEDS ORDERED: SET RED CAP 1 EA INFUS.SET MC ONE (05:13)
[2016-07-11 05:21] LABS: CALCIUM, SERUM 8.4 mg/dL (8.5-10.1); CREATININE 2.9 mg/dL (0.6-1.3); PHOSPHORUS 3.7 mg/dL (2.5-4.9); POTASSIUM 3.7 mmol/L (3.5-5.1)
[2016-07-11 05:49] LABS: ANISOCYTOSIS 1+
[2016-07-11] MEDS: TOPIRAMATE 25 MG TABLET GT SCH ×2 (08:10→17:10)
[2016-07-11] MEDS: PANTOPRAZOLE 40 MG VIAL IV SCH (08:10)
[2016-07-11] MEDS: MULTIVITAMINS,THERAPEUTIC 1 UDTAB TABLET GT SCH (08:10)
[2016-07-11] MEDS: OXCARBAZEPINE 150 MG TABLET GT SCH ×2 (08:10→17:10)
[2016-07-11] MEDS: ASCORBIC ACID 500 MG TABLET GT SCH (08:10)
[2016-07-11] MEDS: ACIDOPHILUS/BULGARICUS 1 EACH TAB.CHEW GT SCH ×2 (08:10→17:10)
[2016-07-11] MEDS: LEVETIRACETAM SOL (5 ML) 100 MG/ML UDC GT SCH ×2 (08:10→17:10)
[2016-07-11] MEDS: Z GUARD REMEDY 2 OZ OINT TP SCH ×2 (08:10→17:10)
[2016-07-11] MEDS: CALCIUM CARBONATE 500 MG TAB.CHEW GT SCH ×2 (08:10→17:10)
[2016-07-11] MEDS: ASPIRIN 81 MG TAB.CHEW PO SCH (08:10)
[2016-07-11] MEDS: CLOTRIMAZOLE 1% 15 GM TUBE TP SCH ×2 (08:11→17:10)
[2016-07-11] MEDS: MUPIROCIN OINT 2% 22 GM TUBE SCH ×2 (08:11→21:02)
[2016-07-11] MEDS: MICAFUNGIN SODIUM 100 MG in IV NS 0.9% 100 ML IV SCH (09:46)
[2016-07-11] MEDS: ALBUMIN 25% 25 GM in PREMIX 1 EA IV SCH ×2 (10:07→22:33)
[2016-07-11 10:20] LABS: ABG BASE EXCESS -6.6 mmol/L; ABG HCO3 17.3 mmol/L; ABG PCO2 29.5 mmHg (35.0-45.0); ABG PH 7.386 (7.350-7.450); ABG PO2 94.7 mmHg (75.0-100.0); ABG TOTAL HEMOGLOBIN 11.5 G/dL (12.0-16.0); ALLEN TEST Pass; AaDO2 228.6 mmHg; O2Hb 94.8 % (94.0-97.0)
[2016-07-11] MEDS: MEROPENEM 500 MG in IV NS 0.9% 50 ML IV SCH (12:44)
[2016-07-11] MEDS ORDERED: SECONDARY IV SET 1 EA INFUS.SET MC ONE ×2 (12:49→20:25)
[2016-07-11] MEDS: METOCLOPRAMIDE HCL 10 MG/2 ML VIAL IV SCH ×3 (13:57→23:39)
[2016-07-11] MEDS ORDERED: IV SET PRIMARY PUMP SET 1 EA INFUS.SET MC ONE (20:25)
[2016-07-11] MEDS ORDERED: ALBUMIN 25% 100 ML IV ONE (21:58)
[2016-07-11] MEDS: VANCOMYCIN FOR PO/GT USE 500 MG ORAL.SUSP GT SCH (23:44)
[2016-07-12] VITALS (65 sets, daily range): BP systolic 51–109; BP diastolic 45–66
[2016-07-12] MEDS ORDERED: VANCOMYCIN FOR PO/GT USE 500 MG ORAL.SUSP PO SCH
[2016-07-12] MEDS: Sodium Bicarbonate 100 MEQ in IV D5W 1,000 ML IV PRN ×2 (02:00→18:49)
[2016-07-12] MEDS: ALBUTEROL FS 2.5 MG/3 ML VIAL.NEB NEB SCH ×5 (03:15→20:18)
[2016-07-12] MEDS: PHENYTOIN SODIUM IV 50 MG/ML VIAL IV SCH ×3 (05:17→22:04)
[2016-07-12] MEDS: BLOOD SUGAR DIAGNOSTIC 1 EACH STRIP IN SCH ×3 (05:49→17:00)
[2016-07-12] MEDS: METOCLOPRAMIDE HCL 10 MG/2 ML VIAL IV SCH ×4 (05:49→23:46)
[2016-07-12] MEDS: VANCOMYCIN FOR PO/GT USE 500 MG ORAL.SUSP GT SCH ×2 (05:50→11:43)
[2016-07-12 06:47] LABS: BASOPHILS % (AUTO) 0.1 % (0.0-2.0); DIFF TOTAL % 100 %; EOSINOPHILS # (AUTO) 0.6 /CMM (0.0-0.7); EOSINOPHILS % (AUTO) 2.5 % (0.0-6.0); LYMPHOCYTES # (AUTO) 1.4 /CMM (0.8-4.8); LYMPHOCYTES % (AUTO) 5.8 % (20.0-44.0); MEAN CORPUSCULAR HEMOGLOBIN 28 PG (26.0-33.0); MEAN CORPUSCULAR HGB CONC 33 g/dl (31.0-36.0); MEAN CORPUSCULAR VOLUME 85 fL (82-100); MONOCYTES # (AUTO) 0.7 /CMM (0.1-1.30); MONOCYTES % (AUTO) 2.9 % (2.0-12.0); NEUTROPHILS # (AUTO) 21.5 /CMM (1.8-8.9); NEUTROPHILS % (AUTO) 88.7 % (43.0-81.0); PLATELET COUNT (AUTO) 187 /CMM (150-450); RED BLOOD CELL COUNT(AUTO) 2.35 MIL/uL (4.0-5.2); WHITE BLOOD COUNT (AUTO) 24.2 K/uL (4.3-11.0)
[2016-07-12 06:50] LABS: CALCIUM, SERUM 8.3 mg/dL (8.5-10.1); CREATININE 3.1 mg/dL (0.6-1.3); PHOSPHORUS 4.6 mg/dL (2.5-4.9); POTASSIUM 3.4 mmol/L (3.5-5.1)
[2016-07-12 06:52] LABS: HEMATOCRIT 20 % (33-45); HEMOGLOBIN 6.6 g/dL (11.5-14.8)
[2016-07-12] MEDS: ASCORBIC ACID 500 MG TABLET GT SCH (08:44)
[2016-07-12] MEDS: PANTOPRAZOLE 40 MG VIAL IV SCH (08:44)
[2016-07-12] MEDS: LEVETIRACETAM SOL (5 ML) 100 MG/ML UDC GT SCH ×2 (08:44→16:55)
[2016-07-12] MEDS: ASPIRIN 81 MG TAB.CHEW PO SCH (08:45)
[2016-07-12] MEDS: OXCARBAZEPINE 150 MG TABLET GT SCH ×2 (08:45→16:56)
[2016-07-12] MEDS: MULTIVITAMINS,THERAPEUTIC 1 UDTAB TABLET GT SCH (08:45)
[2016-07-12] MEDS: ACIDOPHILUS/BULGARICUS 1 EACH TAB.CHEW GT SCH ×2 (08:45→16:55)
[2016-07-12] MEDS: TOPIRAMATE 25 MG TABLET GT SCH ×2 (08:45→16:55)
[2016-07-12] MEDS: CALCIUM CARBONATE 500 MG TAB.CHEW GT SCH ×2 (08:45→16:56)
[2016-07-12] MEDS: Z GUARD REMEDY 2 OZ OINT TP SCH ×2 (08:46→16:56)
[2016-07-12] MEDS: CLOTRIMAZOLE 1% 15 GM TUBE TP SCH ×2 (08:46→16:56)
[2016-07-12] MEDS: MUPIROCIN OINT 2% 22 GM TUBE SCH ×2 (08:46→22:04)
[2016-07-12] MEDS: MICAFUNGIN SODIUM 100 MG in IV NS 0.9% 100 ML IV SCH (08:55)
[2016-07-12 09:49] LABS: EOSINOPHILS % (MANUAL) 3 % (0-4); LYMPHOCYTES % (MANUAL) 7 % (16-48)
[2016-07-12 09:50] LABS: ANISOCYTOSIS 1+; HYPOCHROMASIA 2+; PLATELET ESTIMATE ADEQUATE
[2016-07-12 10:50] LABS: ABG BASE EXCESS -6.9 mmol/L; ABG HCO3 17.2 mmol/L; ABG PCO2 28.5 mmHg (35.0-45.0); ABG PH 7.398 (7.350-7.450); ABG PO2 85.4 mmHg (75.0-100.0); ABG TOTAL HEMOGLOBIN 7.1 G/dL (12.0-16.0); ALLEN TEST Pass; O2Hb 92.2 % (94.0-97.0)
[2016-07-12] MEDS ORDERED: BLOOD IV SET 1 EA INFUS.SET MC ONE (10:58)
[2016-07-12] MEDS ORDERED: IV NS 0.9% 250 ML IV ONE ×2 (10:58→14:23)
[2016-07-12] MEDS ORDERED: LIDOCAINE 1%-EPI 1:100,000 20 ML VIAL ONE (11:17)
[2016-07-12] MEDS ORDERED: LIDOCAINE 2%-EPI 1:200,000 20 ML VIAL IJ ONE (11:17)
[2016-07-12] MEDS ORDERED: VANCOMYCIN 0.75 GM in IV D5W 250 ML IV SCH (12:00)
[2016-07-12] MEDS: MEROPENEM 500 MG in IV NS 0.9% 50 ML IV SCH (12:06)
[2016-07-12] MEDS: GLYTROL 1,000 ML BAG GT PRN (15:00)
[2016-07-12] MEDS: FUROSEMIDE 20 MG/2 ML VIAL IV PRN ×2 (16:04→19:00)
[2016-07-12] MEDS: VANCOMYCIN HCL 125 MG/2.5 ML ORAL.SUSP GT SCH ×2 (17:00→23:45)
[2016-07-12 21:36] LABS: BASOPHILS % (AUTO) 0.1 % (0.0-2.0); DIFF TOTAL % 100 %; EOSINOPHILS # (AUTO) 0.6 /CMM (0.0-0.7); EOSINOPHILS % (AUTO) 2.5 % (0.0-6.0); HEMATOCRIT 28 % (33-45); HEMOGLOBIN 9.4 g/dL (11.5-14.8); LYMPHOCYTES # (AUTO) 1.4 /CMM (0.8-4.8); LYMPHOCYTES % (AUTO) 6.1 % (20.0-44.0); MEAN CORPUSCULAR HEMOGLOBIN 28 PG (26.0-33.0); MEAN CORPUSCULAR HGB CONC 33 g/dl (31.0-36.0); MEAN CORPUSCULAR VOLUME 85 fL (82-100); MONOCYTES # (AUTO) 0.5 /CMM (0.1-1.30); MONOCYTES % (AUTO) 2.5 % (2.0-12.0); NEUTROPHILS # (AUTO) 19.9 /CMM (1.8-8.9); NEUTROPHILS % (AUTO) 88.8 % (43.0-81.0); PLATELET COUNT (AUTO) 187 /CMM (150-450); RED BLOOD CELL COUNT(AUTO) 3.35 MIL/uL (4.0-5.2); WHITE BLOOD COUNT (AUTO) 22.4 K/uL (4.3-11.0)
[2016-07-12] MEDS ORDERED: POTASSIUM CHLORIDE 20 MEQ POWDER PACKET ONE (22:51)
[2016-07-12 23:10] LABS: BAND % (MANUAL) 9 % (0.0-5.0); EOSINOPHILS % (MANUAL) 2 % (0-4); LYMPHOCYTES % (MANUAL) 7 % (16-48)
[2016-07-12 23:11] LABS: PLATELET ESTIMATE ADEQUATE
[2016-07-13] VITALS (37 sets, daily range): BP systolic 99–135; BP diastolic 55–84
[2016-07-13] MEDS: INSULIN REGULAR, HUMAN 100 UNIT/ML 3 ML VIAL SQ PRN ×3 (00:14→11:59)
[2016-07-13] MEDS: ALBUTEROL FS 2.5 MG/3 ML VIAL.NEB NEB SCH ×7 (00:19→22:58)
[2016-07-13 05:09] LABS: BASOPHILS % (AUTO) 0.1 % (0.0-2.0); DIFF TOTAL % 100 %; EOSINOPHILS # (AUTO) 0.6 /CMM (0.0-0.7); EOSINOPHILS % (AUTO) 2.5 % (0.0-6.0); HEMATOCRIT 29 % (33-45); HEMOGLOBIN 9.8 g/dL (11.5-14.8); LYMPHOCYTES # (AUTO) 1.9 /CMM (0.8-4.8); LYMPHOCYTES % (AUTO) 8.2 % (20.0-44.0); MEAN CORPUSCULAR HEMOGLOBIN 28 PG (26.0-33.0); MEAN CORPUSCULAR HGB CONC 33 g/dl (31.0-36.0); MEAN CORPUSCULAR VOLUME 85 fL (82-100); MONOCYTES # (AUTO) 0.8 /CMM (0.1-1.30); MONOCYTES % (AUTO) 3.3 % (2.0-12.0); NEUTROPHILS # (AUTO) 20.2 /CMM (1.8-8.9); NEUTROPHILS % (AUTO) 85.9 % (43.0-81.0); PLATELET COUNT (AUTO) 200 /CMM (150-450); RED BLOOD CELL COUNT(AUTO) 3.48 MIL/uL (4.0-5.2); WHITE BLOOD COUNT (AUTO) 23.5 K/uL (4.3-11.0)
[2016-07-13 05:28] LABS: CALCIUM, SERUM 8.2 mg/dL (8.5-10.1); CREATININE 3.1 mg/dL (0.6-1.3); PHOSPHORUS 4.4 mg/dL (2.5-4.9); POTASSIUM 3.2 mmol/L (3.5-5.1)
[2016-07-13] MEDS: BLOOD SUGAR DIAGNOSTIC 1 EACH STRIP IN SCH ×4 (06:00→17:14)
[2016-07-13] MEDS: METOCLOPRAMIDE HCL 10 MG/2 ML VIAL IV SCH ×3 (06:00→17:11)
[2016-07-13] MEDS: PHENYTOIN SODIUM IV 50 MG/ML VIAL IV SCH ×3 (06:22→20:58)
[2016-07-13] MEDS: VANCOMYCIN HCL 125 MG/2.5 ML ORAL.SUSP GT SCH ×3 (06:22→17:12)
[2016-07-13] MEDS: ACIDOPHILUS/BULGARICUS 1 EACH TAB.CHEW GT SCH ×2 (08:31→17:11)
[2016-07-13] MEDS: LEVETIRACETAM SOL (5 ML) 100 MG/ML UDC GT SCH ×2 (08:31→17:11)
[2016-07-13] MEDS: TOPIRAMATE 25 MG TABLET GT SCH ×2 (08:31→17:11)
[2016-07-13] MEDS: MULTIVITAMINS,THERAPEUTIC 1 UDTAB TABLET GT SCH (08:31)
[2016-07-13] MEDS: CALCIUM CARBONATE 500 MG TAB.CHEW GT SCH ×2 (08:32→17:11)
[2016-07-13] MEDS: ASPIRIN 81 MG TAB.CHEW PO SCH (08:32)
[2016-07-13] MEDS: MICAFUNGIN SODIUM 100 MG in IV NS 0.9% 100 ML IV SCH (08:32)
[2016-07-13] MEDS: PANTOPRAZOLE 40 MG VIAL IV SCH (08:32)
[2016-07-13] MEDS: OXCARBAZEPINE 150 MG TABLET GT SCH ×2 (08:32→17:11)
[2016-07-13] MEDS: VANCOMYCIN 1 GM in IV D5W 250 ML IV SCH (08:32)
[2016-07-13] MEDS: ASCORBIC ACID 500 MG TABLET GT SCH (08:32)
[2016-07-13] MEDS: CLOTRIMAZOLE 1% 15 GM TUBE TP SCH ×2 (08:33→17:13)
[2016-07-13] MEDS: MUPIROCIN OINT 2% 22 GM TUBE SCH ×2 (08:33→20:58)
[2016-07-13] MEDS: Z GUARD REMEDY 2 OZ OINT TP SCH ×2 (08:33→17:14)
[2016-07-13] MEDS ORDERED: POTASSIUM CHLORIDE 20 MEQ POWDER PACKET GT ONE (10:00)
[2016-07-13] MEDS: MEROPENEM 500 MG in IV NS 0.9% 50 ML IV SCH (12:00)
[2016-07-13] MEDS: Sodium Bicarbonate 100 MEQ in IV D5W 1,000 ML IV PRN (17:13)
[2016-07-13] MEDS ORDERED: FEE PK DOSING 1 MIN EA MC ONE (18:57)
[2016-07-13] MEDS: GENTAMICIN 100 MG in IV D5W 50 ML IV SCH (20:58)
[2016-07-13] MEDS ORDERED: LINEZOLID RTU BAG 600 MG in PREMIX 1 EA IV SCH (21:00)
[2016-07-14] VITALS (35 sets, daily range): BP systolic 96–169; BP diastolic 49–93
[2016-07-14] MEDS: INSULIN REGULAR, HUMAN 100 UNIT/ML 3 ML VIAL SQ PRN ×2 (00:06→06:09)
[2016-07-14] MEDS: METOCLOPRAMIDE HCL 10 MG/2 ML VIAL IV SCH ×5 (00:06→23:11)
[2016-07-14] MEDS: VANCOMYCIN HCL 125 MG/2.5 ML ORAL.SUSP GT SCH ×5 (00:06→23:11)
[2016-07-14] MEDS: ALBUTEROL FS 2.5 MG/3 ML VIAL.NEB NEB SCH ×6 (03:02→23:05)
[2016-07-14 04:36] LABS: DIFF TOTAL % 100 %; EOSINOPHILS # (AUTO) 0.5 /CMM (0.0-0.7); EOSINOPHILS % (AUTO) 1.9 % (0.0-6.0); HEMATOCRIT 29 % (33-45); HEMOGLOBIN 9.9 g/dL (11.5-14.8); LYMPHOCYTES % (AUTO) 7.7 % (20.0-44.0); MEAN CORPUSCULAR HEMOGLOBIN 28 PG (26.0-33.0); MEAN CORPUSCULAR HGB CONC 34 g/dl (31.0-36.0); MEAN CORPUSCULAR VOLUME 84 fL (82-100); MONOCYTES # (AUTO) 1.1 /CMM (0.1-1.30); MONOCYTES % (AUTO) 4.1 % (2.0-12.0); NEUTROPHILS # (AUTO) 22.4 /CMM (1.8-8.9); NEUTROPHILS % (AUTO) 86.3 % (43.0-81.0); PLATELET COUNT (AUTO) 232 /CMM (150-450); WHITE BLOOD COUNT (AUTO) 25.9 K/uL (4.3-11.0)
[2016-07-14 04:53] LABS: CALCIUM, SERUM 8.2 mg/dL (8.5-10.1); CREATININE 3.1 mg/dL (0.6-1.3); PHOSPHORUS 3.7 mg/dL (2.5-4.9)
[2016-07-14 05:04] LABS: POTASSIUM 2.7 mmol/L (3.5-5.1)
[2016-07-14] MEDS: BLOOD SUGAR DIAGNOSTIC 1 EACH STRIP IN SCH ×5 (06:00→23:12)
[2016-07-14] MEDS: PHENYTOIN SODIUM IV 50 MG/ML VIAL IV SCH ×3 (06:08→20:09)
[2016-07-14] MEDS ORDERED: IV NS 0.9% 250 ML IV ONE (06:09)
[2016-07-14] MEDS ORDERED: POTASSIUM CL. PREMIX PERIPHER. 50 ML ONE (06:11)
[2016-07-14] MEDS: POTASSIUM CL. PREMIX PERIPHER. 50 ML IV SCH ×4 (06:14→09:43)
[2016-07-14] MEDS: LEVETIRACETAM SOL (5 ML) 100 MG/ML UDC GT SCH ×2 (08:39→17:27)
[2016-07-14] MEDS: CALCIUM CARBONATE 500 MG TAB.CHEW GT SCH ×2 (08:39→17:27)
[2016-07-14] MEDS: OXCARBAZEPINE 150 MG TABLET GT SCH ×2 (08:39→17:27)
[2016-07-14] MEDS: ASCORBIC ACID 500 MG TABLET GT SCH (08:39)
[2016-07-14] MEDS: ASPIRIN 81 MG TAB.CHEW PO SCH (08:40)
[2016-07-14] MEDS: ACIDOPHILUS/BULGARICUS 1 EACH TAB.CHEW GT SCH ×2 (08:40→17:27)
[2016-07-14] MEDS: TOPIRAMATE 25 MG TABLET GT SCH ×2 (08:40→17:27)
[2016-07-14] MEDS: PANTOPRAZOLE 40 MG VIAL IV SCH (08:40)
[2016-07-14] MEDS: MULTIVITAMINS,THERAPEUTIC 1 UDTAB TABLET GT SCH (08:40)
[2016-07-14] MEDS: CLOTRIMAZOLE 1% 15 GM TUBE TP SCH ×2 (08:40→17:50)
[2016-07-14] MEDS: Z GUARD REMEDY 2 OZ OINT TP SCH ×2 (08:41→17:26)
[2016-07-14] MEDS: MUPIROCIN OINT 2% 22 GM TUBE SCH ×2 (08:42→20:09)
[2016-07-14] MEDS: MICAFUNGIN SODIUM 100 MG in IV NS 0.9% 100 ML IV SCH (08:45)
[2016-07-14] MEDS: HYDROGEL DRESSING 90 GM TUBE TP SCH (09:43)
[2016-07-14] MEDS: LORAZEPAM INJ 2 MG/ML VIAL IV PRN (10:28)
[2016-07-14] MEDS: MEROPENEM 500 MG in IV NS 0.9% 50 ML IV SCH (12:03)
[2016-07-14] MEDS: Sodium Bicarbonate 100 MEQ in IV D5W 1,000 ML IV PRN (15:00)
[2016-07-14] MEDS: GLYTROL 1,000 ML BAG GT PRN (17:26)
[2016-07-14] MEDS: GENTAMICIN 100 MG in IV D5W 50 ML IV SCH (18:51)
[2016-07-14] MEDS: VANCOMYCIN 1 GM in IV D5W 250 ML IV SCH ×2 (20:08→20:45)
[2016-07-15] VITALS (36 sets, daily range): BP systolic 99–119; BP diastolic 55–70
[2016-07-15] MEDS: ACETAMINOPHEN 325 MG TABLET PO PRN (02:38)
[2016-07-15] MEDS: ALBUTEROL FS 2.5 MG/3 ML VIAL.NEB NEB SCH ×6 (03:09→23:20)
[2016-07-15 04:43] LABS: BASOPHILS % (AUTO) 0.2 % (0.0-2.0); DIFF TOTAL % 100 %; EOSINOPHILS # (AUTO) 0.5 /CMM (0.0-0.7); EOSINOPHILS % (AUTO) 2.2 % (0.0-6.0); HEMATOCRIT 29 % (33-45); HEMOGLOBIN 9.5 g/dL (11.5-14.8); LYMPHOCYTES # (AUTO) 2.2 /CMM (0.8-4.8); LYMPHOCYTES % (AUTO) 9.1 % (20.0-44.0); MEAN CORPUSCULAR HEMOGLOBIN 28 PG (26.0-33.0); MEAN CORPUSCULAR HGB CONC 33 g/dl (31.0-36.0); MEAN CORPUSCULAR VOLUME 85 fL (82-100); MONOCYTES % (AUTO) 4.2 % (2.0-12.0); NEUTROPHILS # (AUTO) 20.6 /CMM (1.8-8.9); NEUTROPHILS % (AUTO) 84.3 % (43.0-81.0); PLATELET COUNT (AUTO) 260 /CMM (150-450); RED BLOOD CELL COUNT(AUTO) 3.38 MIL/uL (4.0-5.2); WHITE BLOOD COUNT (AUTO) 24.5 K/uL (4.3-11.0)
[2016-07-15 04:51] LABS: CALCIUM, SERUM 8.2 mg/dL (8.5-10.1); CREATININE 2.9 mg/dL (0.6-1.3); PHOSPHORUS 3.5 mg/dL (2.5-4.9)
[2016-07-15] MEDS: METOCLOPRAMIDE HCL 10 MG/2 ML VIAL IV SCH ×3 (05:21→18:10)
[2016-07-15] MEDS: PHENYTOIN SODIUM IV 50 MG/ML VIAL IV SCH ×3 (05:21→20:57)
[2016-07-15] MEDS: BLOOD SUGAR DIAGNOSTIC 1 EACH STRIP IN SCH ×3 (05:21→18:10)
[2016-07-15] MEDS: VANCOMYCIN HCL 125 MG/2.5 ML ORAL.SUSP GT SCH ×3 (05:22→18:10)
[2016-07-15] MEDS: ACIDOPHILUS/BULGARICUS 1 EACH TAB.CHEW GT SCH ×2 (08:47→16:18)
[2016-07-15] MEDS: LEVETIRACETAM SOL (5 ML) 100 MG/ML UDC GT SCH ×2 (08:47→16:17)
[2016-07-15] MEDS: MULTIVITAMINS,THERAPEUTIC 1 UDTAB TABLET GT SCH (08:47)
[2016-07-15] MEDS: TOPIRAMATE 25 MG TABLET GT SCH ×2 (08:47→16:17)
[2016-07-15] MEDS: CALCIUM CARBONATE 500 MG TAB.CHEW GT SCH ×2 (08:47→16:17)
[2016-07-15] MEDS: PANTOPRAZOLE 40 MG VIAL IV SCH (08:47)
[2016-07-15] MEDS: ASCORBIC ACID 500 MG TABLET GT SCH (08:48)
[2016-07-15] MEDS: OXCARBAZEPINE 150 MG TABLET GT SCH ×2 (08:48→16:18)
[2016-07-15] MEDS: Z GUARD REMEDY 2 OZ OINT TP SCH ×2 (08:48→16:20)
[2016-07-15] MEDS: CLOTRIMAZOLE 1% 15 GM TUBE TP SCH ×2 (08:48→16:20)
[2016-07-15] MEDS: ASPIRIN 81 MG TAB.CHEW PO SCH (08:51)
[2016-07-15] MEDS: MUPIROCIN OINT 2% 22 GM TUBE SCH ×2 (08:52→20:57)
[2016-07-15] MEDS: HYDROGEL DRESSING 90 GM TUBE TP SCH (08:52)
[2016-07-15] MEDS: MICAFUNGIN SODIUM 100 MG in IV NS 0.9% 100 ML IV SCH (08:53)
[2016-07-15] MEDS ORDERED: VANCOMYCIN 0.75 GM in IV D5W 250 ML IV SCH (09:00)
[2016-07-15] MEDS ORDERED: IV NS 0.9% 250 ML IV ONE (11:07)
[2016-07-15] MEDS: Sodium Bicarbonate 100 MEQ in IV D5W 1,000 ML IV PRN (11:14)
[2016-07-15] MEDS: MEROPENEM 500 MG in IV NS 0.9% 50 ML IV SCH (12:09)
[2016-07-15] MEDS: POTASSIUM CL. PREMIX PERIPHER. 50 ML IV SCH ×2 (13:04→14:16)
[2016-07-15] MEDS ORDERED: GENTAMICIN 100 MG in IV D5W 100 ML IV SCH (19:00)
[2016-07-15] MEDS: VANCOMYCIN 0.75 GM in IV D5W 250 ML IV SCH (21:00)
[2016-07-15] MEDS ORDERED: IV D5W 250 ML IV ONE (22:00)
[2016-07-15] MEDS ORDERED: VANCOMYCIN 1 GM VIAL ONE (22:00)
[2016-07-16] VITALS (36 sets, daily range): BP systolic 87–130; BP diastolic 50–72
[2016-07-16] MEDS: METOCLOPRAMIDE HCL 10 MG/2 ML VIAL IV SCH ×4 (00:09→18:26)
[2016-07-16] MEDS: BLOOD SUGAR DIAGNOSTIC 1 EACH STRIP IN SCH ×4 (00:09→18:24)
[2016-07-16] MEDS: VANCOMYCIN HCL 125 MG/2.5 ML ORAL.SUSP GT SCH ×4 (00:09→18:26)
[2016-07-16] MEDS: LORAZEPAM INJ 2 MG/ML VIAL IV PRN (01:31)
[2016-07-16] MEDS: ACETAMINOPHEN 325 MG TABLET PO PRN ×2 (02:03→21:08)
[2016-07-16] MEDS: ALBUTEROL FS 2.5 MG/3 ML VIAL.NEB NEB SCH ×6 (03:50→23:37)
[2016-07-16] MEDS: PHENYTOIN SODIUM IV 50 MG/ML VIAL IV SCH ×3 (05:14→21:08)
[2016-07-16 05:25] LABS: HEMATOCRIT 26 % (33-45); HEMOGLOBIN 8.7 g/dL (11.5-14.8); MEAN CORPUSCULAR HEMOGLOBIN 29 PG (26.0-33.0); MEAN CORPUSCULAR HGB CONC 34 g/dl (31.0-36.0); MEAN CORPUSCULAR VOLUME 85 fL (82-100); RED BLOOD CELL COUNT(AUTO) 3.05 MIL/uL (4.0-5.2); WHITE BLOOD COUNT (AUTO) 22.3 K/uL (4.3-11.0)
[2016-07-16 05:26] LABS: BASOPHILS % (AUTO) 0.2 % (0.0-2.0); DIFF TOTAL % 100 %; EOSINOPHILS # (AUTO) 0.8 /CMM (0.0-0.7); EOSINOPHILS % (AUTO) 3.8 % (0.0-6.0); LYMPHOCYTES # (AUTO) 1.7 /CMM (0.8-4.8); LYMPHOCYTES % (AUTO) 7.7 % (20.0-44.0); MONOCYTES # (AUTO) 1.1 /CMM (0.1-1.30); MONOCYTES % (AUTO) 4.9 % (2.0-12.0); NEUTROPHILS # (AUTO) 18.6 /CMM (1.8-8.9); NEUTROPHILS % (AUTO) 83.4 % (43.0-81.0); PLATELET COUNT (AUTO) 291 /CMM (150-450)
[2016-07-16 05:30] LABS: CALCIUM, SERUM 8.1 mg/dL (8.5-10.1); CREATININE 2.8 mg/dL (0.6-1.3); PHOSPHORUS 3.3 mg/dL (2.5-4.9); POTASSIUM 3.4 mmol/L (3.5-5.1)
[2016-07-16] MEDS ORDERED: GENTAMICIN 100 MG in IV D5W 50 ML IV SCH (07:00)
[2016-07-16] MEDS ORDERED: GENTAMICIN 120 MG in IV D5W 100 ML IV SCH (07:00)
[2016-07-16] MEDS: GENTAMICIN 100 MG in IV D5W 100 ML IV SCH (07:26)
[2016-07-16] MEDS: Sodium Bicarbonate 100 MEQ in IV D5W 1,000 ML IV PRN (07:26)
[2016-07-16] MEDS: GLYTROL 1,000 ML BAG GT PRN (07:26)
[2016-07-16] MEDS: LEVETIRACETAM SOL (5 ML) 100 MG/ML UDC GT SCH ×2 (09:13→18:23)
[2016-07-16] MEDS: PANTOPRAZOLE 40 MG VIAL IV SCH (09:13)
[2016-07-16] MEDS: ASCORBIC ACID 500 MG TABLET GT SCH (09:14)
[2016-07-16] MEDS: ACIDOPHILUS/BULGARICUS 1 EACH TAB.CHEW GT SCH ×2 (09:14→18:23)
[2016-07-16] MEDS: TOPIRAMATE 25 MG TABLET GT SCH ×2 (09:14→18:24)
[2016-07-16] MEDS: OXCARBAZEPINE 150 MG TABLET GT SCH ×2 (09:14→18:23)
[2016-07-16] MEDS: ASPIRIN 81 MG TAB.CHEW PO SCH (09:15)
[2016-07-16] MEDS: CALCIUM CARBONATE 500 MG TAB.CHEW GT SCH ×2 (09:15→17:00)
[2016-07-16] MEDS: Z GUARD REMEDY 2 OZ OINT TP PRN ×2 (09:18→21:08)
[2016-07-16] MEDS: CLOTRIMAZOLE 1% 15 GM TUBE TP SCH ×2 (09:18→18:27)
[2016-07-16] MEDS: HYDROGEL DRESSING 90 GM TUBE TP SCH (09:18)
[2016-07-16] MEDS: Z GUARD REMEDY 2 OZ OINT TP SCH ×2 (09:19→18:27)
[2016-07-16] MEDS: MUPIROCIN OINT 2% 22 GM TUBE SCH ×2 (09:20→21:08)
[2016-07-16] MEDS: MICAFUNGIN SODIUM 100 MG in IV NS 0.9% 100 ML IV SCH (09:36)
[2016-07-16] MEDS: MULTIVITAMINS,THERAPEUTIC 1 UDTAB TABLET GT SCH (09:51)
[2016-07-16] MEDS ORDERED: SECONDARY IV SET 1 EA INFUS.SET MC ONE (10:10)
[2016-07-16] MEDS: MEROPENEM 500 MG in IV NS 0.9% 50 ML IV SCH (13:35)
[2016-07-16] MEDS ORDERED: POTASSIUM CHLORIDE 20 MEQ POWDER PACKET GT ONE (19:00)
[2016-07-16] MEDS ORDERED: POTASSIUM CHLORIDE 20 MEQ TAB.PRT.SR PO ONE (19:00)
[2016-07-17] VITALS (34 sets, daily range): BP systolic 103–143; BP diastolic 31–99
[2016-07-17] MEDS: BLOOD SUGAR DIAGNOSTIC 1 EACH STRIP IN SCH ×4 (00:19→17:13)
[2016-07-17] MEDS: VANCOMYCIN HCL 125 MG/2.5 ML ORAL.SUSP GT SCH ×4 (00:19→17:13)
[2016-07-17] MEDS: METOCLOPRAMIDE HCL 10 MG/2 ML VIAL IV SCH ×4 (00:19→17:13)
[2016-07-17] MEDS: ALBUTEROL FS 2.5 MG/3 ML VIAL.NEB NEB SCH ×6 (03:20→20:00)
[2016-07-17 04:59] LABS: BASOPHILS % (AUTO) 0.2 % (0.0-2.0); DIFF TOTAL % 100 %; EOSINOPHILS % (AUTO) 4.5 % (0.0-6.0); HEMATOCRIT 26 % (33-45); HEMOGLOBIN 8.5 g/dL (11.5-14.8); LYMPHOCYTES # (AUTO) 2.6 /CMM (0.8-4.8); LYMPHOCYTES % (AUTO) 11.7 % (20.0-44.0); MEAN CORPUSCULAR HEMOGLOBIN 29 PG (26.0-33.0); MEAN CORPUSCULAR HGB CONC 33 g/dl (31.0-36.0); MEAN CORPUSCULAR VOLUME 86 fL (82-100); MONOCYTES # (AUTO) 1.4 /CMM (0.1-1.30); NEUTROPHILS # (AUTO) 17.4 /CMM (1.8-8.9); NEUTROPHILS % (AUTO) 77.6 % (43.0-81.0); PLATELET COUNT (AUTO) 344 /CMM (150-450); RED BLOOD CELL COUNT(AUTO) 2.99 MIL/uL (4.0-5.2); WHITE BLOOD COUNT (AUTO) 22.4 K/uL (4.3-11.0)
[2016-07-17] MEDS: PHENYTOIN SODIUM IV 50 MG/ML VIAL IV SCH ×3 (05:14→21:14)
[2016-07-17 05:23] LABS: CALCIUM, SERUM 8.4 mg/dL (8.5-10.1); CREATININE 2.8 mg/dL (0.6-1.3); POTASSIUM 3.4 mmol/L (3.5-5.1)
[2016-07-17] MEDS: ASPIRIN 81 MG TAB.CHEW PO SCH (07:41)
[2016-07-17] MEDS: ASCORBIC ACID 500 MG TABLET GT SCH (07:41)
[2016-07-17] MEDS: OXCARBAZEPINE 150 MG TABLET GT SCH ×2 (07:41→17:12)
[2016-07-17] MEDS: ACETAMINOPHEN 325 MG TABLET PO PRN (07:41)
[2016-07-17] MEDS: CALCIUM CARBONATE 500 MG TAB.CHEW GT SCH ×2 (07:41→17:13)
[2016-07-17] MEDS: ACIDOPHILUS/BULGARICUS 1 EACH TAB.CHEW GT SCH ×2 (07:41→17:13)
[2016-07-17] MEDS: MULTIVITAMINS,THERAPEUTIC 1 UDTAB TABLET GT SCH (07:41)
[2016-07-17] MEDS: TOPIRAMATE 25 MG TABLET GT SCH ×2 (07:42→17:13)
[2016-07-17] MEDS: PANTOPRAZOLE 40 MG VIAL IV SCH (07:42)
[2016-07-17] MEDS: LEVETIRACETAM SOL (5 ML) 100 MG/ML UDC GT SCH ×2 (07:42→17:12)
[2016-07-17] MEDS: CLOTRIMAZOLE 1% 15 GM TUBE TP SCH ×2 (07:44→17:15)
[2016-07-17] MEDS: MUPIROCIN OINT 2% 22 GM TUBE SCH ×2 (07:44→21:14)
[2016-07-17] MEDS: HYDROGEL DRESSING 90 GM TUBE TP SCH (07:44)
[2016-07-17] MEDS: Z GUARD REMEDY 2 OZ OINT TP SCH ×2 (07:45→17:15)
[2016-07-17] MEDS ORDERED: POTASSIUM CHLORIDE 20 MEQ POWDER PACKET GT SCH (09:00)
[2016-07-17] MEDS: LORAZEPAM INJ 2 MG/ML VIAL IV PRN ×2 (09:09→14:16)
[2016-07-17] MEDS ORDERED: POTASSIUM CHLORIDE 20 MEQ POWDER PACKET GT ONE ×2 (10:30→14:30)
[2016-07-17] MEDS: MICAFUNGIN SODIUM 100 MG in IV NS 0.9% 100 ML IV SCH (10:44)
[2016-07-17] MEDS: MEROPENEM 500 MG in IV NS 0.9% 50 ML IV SCH (13:32)
[2016-07-17] MEDS ORDERED: IV NS 0.9% 250 ML IV ONE ×3 (16:56→22:30)
[2016-07-17] MEDS ORDERED: SECONDARY IV SET 1 EA INFUS.SET MC ONE (16:56)
[2016-07-17] MEDS ORDERED: IV SET PRIMARY PUMP SET 1 EA INFUS.SET MC ONE (16:56)
[2016-07-17] MEDS: GLYTROL 1,000 ML BAG GT PRN (17:17)
[2016-07-17] MEDS: GENTAMICIN 100 MG in IV D5W 100 ML IV SCH (19:23)
[2016-07-18] VITALS (36 sets, daily range): BP systolic 106–152; BP diastolic 28–76
[2016-07-18] MEDS: ALBUTEROL FS 2.5 MG/3 ML VIAL.NEB NEB SCH ×7 (00:02→23:12)
[2016-07-18] MEDS: METOCLOPRAMIDE HCL 10 MG/2 ML VIAL IV SCH ×5 (00:07→23:15)
[2016-07-18] MEDS: VANCOMYCIN HCL 125 MG/2.5 ML ORAL.SUSP GT SCH ×5 (00:07→23:15)
[2016-07-18] MEDS: BLOOD SUGAR DIAGNOSTIC 1 EACH STRIP IN SCH ×5 (00:07→23:15)
[2016-07-18 05:05] LABS: BASOPHILS # (AUTO) 0.1 /CMM (0.0-0.2); BASOPHILS % (AUTO) 0.4 % (0.0-2.0); DIFF TOTAL % 100 %; EOSINOPHILS % (AUTO) 4.4 % (0.0-6.0); HEMATOCRIT 27 % (33-45); HEMOGLOBIN 8.7 g/dL (11.5-14.8); LYMPHOCYTES # (AUTO) 1.8 /CMM (0.8-4.8); MEAN CORPUSCULAR HEMOGLOBIN 28 PG (26.0-33.0); MEAN CORPUSCULAR HGB CONC 33 g/dl (31.0-36.0); MEAN CORPUSCULAR VOLUME 86 fL (82-100); MONOCYTES # (AUTO) 1.2 /CMM (0.1-1.30); MONOCYTES % (AUTO) 5.4 % (2.0-12.0); NEUTROPHILS # (AUTO) 18.6 /CMM (1.8-8.9); NEUTROPHILS % (AUTO) 81.8 % (43.0-81.0); PLATELET COUNT (AUTO) 393 /CMM (150-450); RED BLOOD CELL COUNT(AUTO) 3.08 MIL/uL (4.0-5.2); WHITE BLOOD COUNT (AUTO) 22.8 K/uL (4.3-11.0)
[2016-07-18] MEDS: PHENYTOIN SODIUM IV 50 MG/ML VIAL IV SCH ×3 (05:11→20:56)
[2016-07-18] MEDS: ACETAMINOPHEN 325 MG TABLET PO PRN (05:11)
[2016-07-18 05:20] LABS: CALCIUM, SERUM 8.7 mg/dL (8.5-10.1); CREATININE 2.9 mg/dL (0.6-1.3); POTASSIUM 3.7 mmol/L (3.5-5.1)
[2016-07-18] MEDS: VANCOMYCIN 0.75 GM in IV D5W 250 ML IV SCH (05:33)
[2016-07-18] MEDS: PANTOPRAZOLE 40 MG VIAL IV SCH (08:18)
[2016-07-18] MEDS: LEVETIRACETAM SOL (5 ML) 100 MG/ML UDC GT SCH ×2 (08:18→17:23)
[2016-07-18] MEDS: ASCORBIC ACID 500 MG TABLET GT SCH (08:19)
[2016-07-18] MEDS: ACIDOPHILUS/BULGARICUS 1 EACH TAB.CHEW GT SCH ×2 (08:19→17:23)
[2016-07-18] MEDS: OXCARBAZEPINE 150 MG TABLET GT SCH ×2 (08:19→17:22)
[2016-07-18] MEDS: CALCIUM CARBONATE 500 MG TAB.CHEW GT SCH ×2 (08:19→17:23)
[2016-07-18] MEDS: ASPIRIN 81 MG TAB.CHEW PO SCH (08:19)
[2016-07-18] MEDS: MULTIVITAMINS,THERAPEUTIC 1 UDTAB TABLET GT SCH (08:19)
[2016-07-18] MEDS: MUPIROCIN OINT 2% 22 GM TUBE SCH ×2 (08:24→20:56)
[2016-07-18] MEDS: CLOTRIMAZOLE 1% 15 GM TUBE TP SCH ×2 (08:24→17:24)
[2016-07-18] MEDS: HYDROGEL DRESSING 90 GM TUBE TP SCH (08:24)
[2016-07-18] MEDS: Z GUARD REMEDY 2 OZ OINT TP PRN (08:25)
[2016-07-18] MEDS: Z GUARD REMEDY 2 OZ OINT TP SCH ×2 (08:25→17:24)
[2016-07-18] MEDS: TOPIRAMATE 25 MG TABLET GT SCH ×2 (08:28→17:23)
[2016-07-18] MEDS: MICAFUNGIN SODIUM 100 MG in IV NS 0.9% 100 ML IV SCH (08:38)
[2016-07-18] MEDS ORDERED: POTASSIUM CHLORIDE 20 MEQ POWDER PACKET GT SCH (09:00)
[2016-07-18] MEDS: MEROPENEM 500 MG in IV NS 0.9% 50 ML IV SCH (12:33)
[2016-07-18] MEDS: LORAZEPAM INJ 2 MG/ML VIAL IV PRN (23:15)
[2016-07-19] VITALS (37 sets, daily range): BP systolic 88–134; BP diastolic 26–73
[2016-07-19] MEDS: ALBUTEROL FS 2.5 MG/3 ML VIAL.NEB NEB SCH ×6 (03:37→23:19)
[2016-07-19] MEDS: PHENYTOIN SODIUM IV 50 MG/ML VIAL IV SCH ×3 (05:17→20:09)
[2016-07-19] MEDS: GLYTROL 1,000 ML BAG GT PRN (05:17)
[2016-07-19] MEDS: METOCLOPRAMIDE HCL 10 MG/2 ML VIAL IV SCH ×4 (05:17→23:26)
[2016-07-19] MEDS: VANCOMYCIN HCL 125 MG/2.5 ML ORAL.SUSP GT SCH ×4 (05:17→23:26)
[2016-07-19 05:23] LABS: BASOPHILS # (AUTO) 0.1 /CMM (0.0-0.2); BASOPHILS % (AUTO) 0.5 % (0.0-2.0); DIFF TOTAL % 100 %; EOSINOPHILS # (AUTO) 1.1 /CMM (0.0-0.7); HEMATOCRIT 26 % (33-45); HEMOGLOBIN 8.4 g/dL (11.5-14.8); LYMPHOCYTES # (AUTO) 2.5 /CMM (0.8-4.8); LYMPHOCYTES % (AUTO) 11.6 % (20.0-44.0); MEAN CORPUSCULAR HEMOGLOBIN 28 PG (26.0-33.0); MEAN CORPUSCULAR HGB CONC 33 g/dl (31.0-36.0); MEAN CORPUSCULAR VOLUME 86 fL (82-100); MONOCYTES # (AUTO) 1.4 /CMM (0.1-1.30); MONOCYTES % (AUTO) 6.8 % (2.0-12.0); NEUTROPHILS % (AUTO) 76.1 % (43.0-81.0); PLATELET COUNT (AUTO) 457 /CMM (150-450); RED BLOOD CELL COUNT(AUTO) 2.98 MIL/uL (4.0-5.2); WHITE BLOOD COUNT (AUTO) 21.1 K/uL (4.3-11.0)
[2016-07-19 05:24] LABS: CALCIUM, SERUM 8.4 mg/dL (8.5-10.1); POTASSIUM 3.5 mmol/L (3.5-5.1)
[2016-07-19 05:46] LABS: INR 1.05 (0.87-1.13); PROTHROMBIN TIME 11.4 SECS (9.5-12.7)
[2016-07-19] MEDS: BLOOD SUGAR DIAGNOSTIC 1 EACH STRIP IN SCH ×4 (06:10→23:27)
[2016-07-19] MEDS: INSULIN REGULAR, HUMAN 100 UNIT/ML 3 ML VIAL SQ PRN ×2 (06:11→12:32)
[2016-07-19] MEDS: GENTAMICIN 100 MG in IV D5W 100 ML IV SCH (06:13)
[2016-07-19] MEDS: LEVETIRACETAM SOL (5 ML) 100 MG/ML UDC GT SCH ×2 (08:27→17:24)
[2016-07-19] MEDS: PANTOPRAZOLE 40 MG VIAL IV SCH (08:27)
[2016-07-19] MEDS: ASPIRIN 81 MG TAB.CHEW PO SCH (08:27)
[2016-07-19] MEDS: MULTIVITAMINS,THERAPEUTIC 1 UDTAB TABLET GT SCH (08:27)
[2016-07-19] MEDS: ACIDOPHILUS/BULGARICUS 1 EACH TAB.CHEW GT SCH ×2 (08:28→17:24)
[2016-07-19] MEDS: TOPIRAMATE 25 MG TABLET GT SCH ×2 (08:28→17:24)
[2016-07-19] MEDS: OXCARBAZEPINE 150 MG TABLET GT SCH ×2 (08:28→17:24)
[2016-07-19] MEDS: CALCIUM CARBONATE 500 MG TAB.CHEW GT SCH ×2 (08:28→17:24)
[2016-07-19] MEDS: ASCORBIC ACID 500 MG TABLET GT SCH (08:28)
[2016-07-19] MEDS: Z GUARD REMEDY 2 OZ OINT TP PRN (08:29)
[2016-07-19] MEDS: MUPIROCIN OINT 2% 22 GM TUBE SCH ×2 (08:29→20:09)
[2016-07-19] MEDS: CLOTRIMAZOLE 1% 15 GM TUBE TP SCH ×2 (08:29→17:25)
[2016-07-19] MEDS: HYDROGEL DRESSING 90 GM TUBE TP SCH (08:29)
[2016-07-19] MEDS: Z GUARD REMEDY 2 OZ OINT TP SCH ×2 (08:29→17:25)
[2016-07-19] MEDS: MICAFUNGIN SODIUM 100 MG in IV NS 0.9% 100 ML IV SCH (08:30)
[2016-07-19] MEDS: MEROPENEM 500 MG in IV NS 0.9% 50 ML IV SCH (12:29)
[2016-07-20] VITALS (33 sets, daily range): BP systolic 99–130; BP diastolic 37–74
[2016-07-20] MEDS: ALBUTEROL FS 2.5 MG/3 ML VIAL.NEB NEB SCH ×5 (02:54→19:53)
[2016-07-20] MEDS ORDERED: IV NS 0.9% 250 ML IV ONE (04:41)
[2016-07-20 05:11] LABS: CALCIUM, SERUM 8.8 mg/dL (8.5-10.1); CREATININE 3.1 mg/dL (0.6-1.3); POTASSIUM 3.5 mmol/L (3.5-5.1)
[2016-07-20] MEDS: PHENYTOIN SODIUM IV 50 MG/ML VIAL IV SCH ×3 (05:15→20:21)
[2016-07-20] MEDS: VANCOMYCIN HCL 125 MG/2.5 ML ORAL.SUSP GT SCH ×2 (05:15→11:53)
[2016-07-20] MEDS: BLOOD SUGAR DIAGNOSTIC 1 EACH STRIP IN SCH ×3 (05:16→17:15)
[2016-07-20] MEDS: METOCLOPRAMIDE HCL 10 MG/2 ML VIAL IV SCH ×2 (05:17→11:53)
[2016-07-20 05:40] LABS: BASOPHILS # (AUTO) 0.1 /CMM (0.0-0.2); BASOPHILS % (AUTO) 0.5 % (0.0-2.0); DIFF TOTAL % 100 %; EOSINOPHILS # (AUTO) 1.3 /CMM (0.0-0.7); EOSINOPHILS % (AUTO) 5.7 % (0.0-6.0); HEMATOCRIT 26 % (33-45); HEMOGLOBIN 8.3 g/dL (11.5-14.8); LYMPHOCYTES # (AUTO) 2.8 /CMM (0.8-4.8); LYMPHOCYTES % (AUTO) 12.6 % (20.0-44.0); MEAN CORPUSCULAR HEMOGLOBIN 28 PG (26.0-33.0); MEAN CORPUSCULAR HGB CONC 32 g/dl (31.0-36.0); MEAN CORPUSCULAR VOLUME 86 fL (82-100); MONOCYTES % (AUTO) 8.9 % (2.0-12.0); NEUTROPHILS # (AUTO) 16.3 /CMM (1.8-8.9); NEUTROPHILS % (AUTO) 72.3 % (43.0-81.0); PLATELET COUNT (AUTO) 498 /CMM (150-450); RED BLOOD CELL COUNT(AUTO) 2.97 MIL/uL (4.0-5.2); WHITE BLOOD COUNT (AUTO) 22.5 K/uL (4.3-11.0)
[2016-07-20] MEDS ORDERED: LIDOCAINE 1%-EPI 1:100,000 20 ML VIAL ONE (06:49)
[2016-07-20] MEDS ORDERED: FENTANYL PF 100MCG/2ML AMPUL ONE (07:36)
[2016-07-20] MEDS ORDERED: ATRACURIUM 100MG/10 ML MDV IV ONE (07:36)
[2016-07-20 08:40] LABS: ANISOCYTOSIS 1+; BAND % (MANUAL) 1 % (0.0-5.0); EOSINOPHILS % (MANUAL) 5 % (0-4); LYMPHOCYTES % (MANUAL) 17 % (16-48); PLATELET ESTIMATE INCREASED
[2016-07-20] MEDS: MICAFUNGIN SODIUM 100 MG in IV NS 0.9% 100 ML IV SCH (09:16)
[2016-07-20] MEDS: ACIDOPHILUS/BULGARICUS 1 EACH TAB.CHEW GT SCH ×2 (09:17→16:01)
[2016-07-20] MEDS: PANTOPRAZOLE 40 MG VIAL IV SCH (09:17)
[2016-07-20] MEDS: LEVETIRACETAM SOL (5 ML) 100 MG/ML UDC GT SCH ×2 (09:17→16:01)
[2016-07-20] MEDS: ASCORBIC ACID 500 MG TABLET GT SCH (09:17)
[2016-07-20] MEDS: ASPIRIN 81 MG TAB.CHEW PO SCH (09:17)
[2016-07-20] MEDS: OXCARBAZEPINE 150 MG TABLET GT SCH ×2 (09:17→16:01)
[2016-07-20] MEDS: CALCIUM CARBONATE 500 MG TAB.CHEW GT SCH ×2 (09:17→16:01)
[2016-07-20] MEDS: TOPIRAMATE 25 MG TABLET GT SCH ×2 (09:17→16:01)
[2016-07-20] MEDS: Z GUARD REMEDY 2 OZ OINT TP PRN ×2 (09:18→16:00)
[2016-07-20] MEDS: MUPIROCIN OINT 2% 22 GM TUBE SCH ×2 (09:18→20:20)
[2016-07-20] MEDS: HYDROGEL DRESSING 90 GM TUBE TP PRN (09:18)
[2016-07-20] MEDS: MULTIVITAMINS,THERAPEUTIC 1 UDTAB TABLET GT SCH (09:18)
[2016-07-20] MEDS: CLOTRIMAZOLE 1% 15 GM TUBE TP SCH ×2 (09:19→16:00)
[2016-07-20] MEDS: Z GUARD REMEDY 2 OZ OINT TP SCH ×2 (09:20→16:01)
[2016-07-20] MEDS: HYDROGEL DRESSING 90 GM TUBE TP SCH (09:20)
[2016-07-20] MEDS: GLYTROL 1,000 ML BAG GT PRN (09:34)
[2016-07-20] MEDS ORDERED: ANESTHESIA TRAY IN PYXIS 1 EA TRAY MC ONE (10:34)
[2016-07-20] MEDS ORDERED: SECONDARY IV SET 1 EA INFUS.SET MC ONE (11:32)
[2016-07-20] MEDS: MEROPENEM 500 MG in IV NS 0.9% 50 ML IV SCH (12:01)
[2016-07-20] MEDS: VANCOMYCIN 0.75 GM in IV D5W 250 ML IV SCH (12:01)
[2016-07-20] MEDS: ACETAMINOPHEN 325 MG TABLET PO PRN (21:21)
[2016-07-21] VITALS: BP 101/57
[2016-07-21] MEDS: ALBUTEROL FS 2.5 MG/3 ML VIAL.NEB NEB SCH ×7 (00:04→23:35)
[2016-07-21] MEDS: BLOOD SUGAR DIAGNOSTIC 1 EACH STRIP IN SCH ×5 (00:25→23:20)
[2016-07-21 04:00] VITALS: BP 148/58
[2016-07-21] MEDS: PHENYTOIN SODIUM IV 50 MG/ML VIAL IV SCH ×3 (05:13→20:06)
[2016-07-21 06:55] LABS: CALCIUM, SERUM 9.1 mg/dL (8.5-10.1); CREATININE 3.1 mg/dL (0.6-1.3); POTASSIUM 4.2 mmol/L (3.5-5.1)
[2016-07-21 07:02] LABS: BASOPHILS # (AUTO) 0.1 /CMM (0.0-0.2); BASOPHILS % (AUTO) 0.6 % (0.0-2.0); DIFF TOTAL % 100 %; EOSINOPHILS # (AUTO) 1.3 /CMM (0.0-0.7); EOSINOPHILS % (AUTO) 6.8 % (0.0-6.0); HEMATOCRIT 27 % (33-45); HEMOGLOBIN 8.6 g/dL (11.5-14.8); LYMPHOCYTES # (AUTO) 2.6 /CMM (0.8-4.8); LYMPHOCYTES % (AUTO) 12.9 % (20.0-44.0); MEAN CORPUSCULAR HEMOGLOBIN 28 PG (26.0-33.0); MEAN CORPUSCULAR HGB CONC 32 g/dl (31.0-36.0); MEAN CORPUSCULAR VOLUME 87 fL (82-100); MONOCYTES # (AUTO) 1.6 /CMM (0.1-1.30); NEUTROPHILS # (AUTO) 14.2 /CMM (1.8-8.9); NEUTROPHILS % (AUTO) 71.7 % (43.0-81.0); PLATELET COUNT (AUTO) 510 /CMM (150-450); RED BLOOD CELL COUNT(AUTO) 3.08 MIL/uL (4.0-5.2); WHITE BLOOD COUNT (AUTO) 19.8 K/uL (4.3-11.0)
[2016-07-21 08:00] VITALS: BP 110/69
[2016-07-21] MEDS: LEVETIRACETAM SOL (5 ML) 100 MG/ML UDC GT SCH ×2 (08:02→17:13)
[2016-07-21] MEDS: CALCIUM CARBONATE 500 MG TAB.CHEW GT SCH ×2 (08:02→17:13)
[2016-07-21] MEDS: ASCORBIC ACID 500 MG TABLET GT SCH (08:03)
[2016-07-21] MEDS: ACIDOPHILUS/BULGARICUS 1 EACH TAB.CHEW GT SCH ×2 (08:03→17:13)
[2016-07-21] MEDS: PANTOPRAZOLE 40 MG VIAL IV SCH (08:03)
[2016-07-21] MEDS: ASPIRIN 81 MG TAB.CHEW PO SCH (08:03)
[2016-07-21] MEDS: MULTIVITAMINS,THERAPEUTIC 1 UDTAB TABLET GT SCH (08:03)
[2016-07-21] MEDS: TOPIRAMATE 25 MG TABLET GT SCH ×2 (08:03→17:13)
[2016-07-21] MEDS: OXCARBAZEPINE 150 MG TABLET GT SCH ×2 (08:03→17:13)
[2016-07-21] MEDS: Z GUARD REMEDY 2 OZ OINT TP PRN (08:05)
[2016-07-21] MEDS: HYDROGEL DRESSING 90 GM TUBE TP SCH (08:05)
[2016-07-21] MEDS: CLOTRIMAZOLE 1% 15 GM TUBE TP SCH ×2 (08:05→17:12)
[2016-07-21] MEDS: Z GUARD REMEDY 2 OZ OINT TP SCH ×2 (08:06→17:13)
[2016-07-21] MEDS: GENTAMICIN 100 MG in IV D5W 100 ML IV SCH (08:12)
[2016-07-21] MEDS: MUPIROCIN OINT 2% 22 GM TUBE SCH ×2 (08:13→20:07)
[2016-07-21] MEDS: LORAZEPAM INJ 2 MG/ML VIAL IV PRN (11:36)
[2016-07-21] MEDS: INSULIN REGULAR, HUMAN 100 UNIT/ML 3 ML VIAL SQ PRN (11:58)
[2016-07-21 12:00] VITALS: BP_SYST 110; BP_DIAS 64; BP_DIAS 69
[2016-07-21] MEDS: GLYTROL 1,000 ML BAG GT PRN (12:48)
[2016-07-21 16:00] VITALS: BP 111/70
[2016-07-21 20:00] VITALS: BP 101/61
[2016-07-22] VITALS: BP 101/55
[2016-07-22 04:00] VITALS: BP 98/58
[2016-07-22] MEDS: ALBUTEROL FS 2.5 MG/3 ML VIAL.NEB NEB SCH ×6 (04:09→23:51)
[2016-07-22] MEDS ORDERED: IV NS 0.9% 250 ML IV ONE (05:06)
[2016-07-22] MEDS: BLOOD SUGAR DIAGNOSTIC 1 EACH STRIP IN SCH ×3 (05:39→17:18)
[2016-07-22] MEDS: PHENYTOIN SODIUM IV 50 MG/ML VIAL IV SCH ×3 (05:40→21:17)
[2016-07-22] MEDS: LORAZEPAM INJ 2 MG/ML VIAL IV PRN (06:03)
[2016-07-22] MEDS: GLYTROL 1,000 ML BAG GT PRN (06:04)
[2016-07-22 07:12] LABS: CALCIUM, SERUM 8.8 mg/dL (8.5-10.1); POTASSIUM 3.8 mmol/L (3.5-5.1)
[2016-07-22 08:00] VITALS: BP 107/62
[2016-07-22 08:22] LABS: BASOPHILS # (AUTO) 0.1 /CMM (0.0-0.2); BASOPHILS % (AUTO) 0.4 % (0.0-2.0); DIFF TOTAL % 100 %; EOSINOPHILS # (AUTO) 1.6 /CMM (0.0-0.7); EOSINOPHILS % (AUTO) 9.3 % (0.0-6.0); HEMATOCRIT 24 % (33-45); HEMOGLOBIN 7.5 g/dL (11.5-14.8); LYMPHOCYTES # (AUTO) 2.1 /CMM (0.8-4.8); LYMPHOCYTES % (AUTO) 11.9 % (20.0-44.0); MEAN CORPUSCULAR HEMOGLOBIN 28 PG (26.0-33.0); MEAN CORPUSCULAR HGB CONC 32 g/dl (31.0-36.0); MEAN CORPUSCULAR VOLUME 87 fL (82-100); MONOCYTES # (AUTO) 1.6 /CMM (0.1-1.30); MONOCYTES % (AUTO) 9.2 % (2.0-12.0); NEUTROPHILS % (AUTO) 69.2 % (43.0-81.0); PLATELET COUNT (AUTO) 526 /CMM (150-450); RED BLOOD CELL COUNT(AUTO) 2.69 MIL/uL (4.0-5.2); WHITE BLOOD COUNT (AUTO) 17.3 K/uL (4.3-11.0)
[2016-07-22] MEDS: ACIDOPHILUS/BULGARICUS 1 EACH TAB.CHEW GT SCH ×2 (08:35→17:18)
[2016-07-22] MEDS: LEVETIRACETAM SOL (5 ML) 100 MG/ML UDC GT SCH ×2 (08:35→17:18)
[2016-07-22] MEDS: CALCIUM CARBONATE 500 MG TAB.CHEW GT SCH ×2 (08:35→17:18)
[2016-07-22] MEDS: OXCARBAZEPINE 150 MG TABLET GT SCH ×2 (08:35→17:18)
[2016-07-22] MEDS: ASCORBIC ACID 500 MG TABLET GT SCH (08:35)
[2016-07-22] MEDS: MULTIVITAMINS,THERAPEUTIC 1 UDTAB TABLET GT SCH (08:35)
[2016-07-22] MEDS: PANTOPRAZOLE 40 MG VIAL IV SCH (08:36)
[2016-07-22] MEDS: ASPIRIN 81 MG TAB.CHEW PO SCH (08:36)
[2016-07-22] MEDS: TOPIRAMATE 25 MG TABLET GT SCH ×2 (08:36→17:18)
[2016-07-22] MEDS: MUPIROCIN OINT 2% 22 GM TUBE SCH ×2 (08:37→21:18)
[2016-07-22] MEDS: CLOTRIMAZOLE 1% 15 GM TUBE TP SCH ×2 (08:37→17:19)
[2016-07-22] MEDS: Z GUARD REMEDY 2 OZ OINT TP SCH ×2 (08:37→17:19)
[2016-07-22] MEDS: HYDROGEL DRESSING 90 GM TUBE TP SCH (08:37)
[2016-07-22] MEDS: INSULIN REGULAR, HUMAN 100 UNIT/ML 3 ML VIAL SQ PRN ×2 (11:21→17:19)
[2016-07-22 12:00] VITALS: BP 116/66
[2016-07-22 16:00] VITALS: BP 109/61
[2016-07-22 18:15] LABS: BASOPHILS # (AUTO) 0.1 /CMM (0.0-0.2); BASOPHILS % (AUTO) 0.4 % (0.0-2.0); DIFF TOTAL % 100 %; EOSINOPHILS % (AUTO) 10.3 % (0.0-6.0); HEMATOCRIT 26 % (33-45); HEMOGLOBIN 8.2 g/dL (11.5-14.8); LYMPHOCYTES # (AUTO) 1.9 /CMM (0.8-4.8); LYMPHOCYTES % (AUTO) 9.8 % (20.0-44.0); MEAN CORPUSCULAR HEMOGLOBIN 28 PG (26.0-33.0); MEAN CORPUSCULAR HGB CONC 32 g/dl (31.0-36.0); MEAN CORPUSCULAR VOLUME 87 fL (82-100); MONOCYTES # (AUTO) 1.6 /CMM (0.1-1.30); MONOCYTES % (AUTO) 8.1 % (2.0-12.0); NEUTROPHILS # (AUTO) 13.9 /CMM (1.8-8.9); NEUTROPHILS % (AUTO) 71.4 % (43.0-81.0); PLATELET COUNT (AUTO) 529 /CMM (150-450); RED BLOOD CELL COUNT(AUTO) 2.97 MIL/uL (4.0-5.2); WHITE BLOOD COUNT (AUTO) 19.4 K/uL (4.3-11.0)
[2016-07-22 18:50] LABS: BAND % (MANUAL) 2 % (0.0-5.0); EOSINOPHILS % (MANUAL) 11 % (0-4); LYMPHOCYTES % (MANUAL) 7 % (16-48)
[2016-07-22 18:51] LABS: PLATELET ESTIMATE INCREASED
[2016-07-22 18:52] LABS: ANISOCYTOSIS 1+; RBC MORPHOLOGY COMMENT NORMAL RBC MORPH
[2016-07-22 20:00] VITALS: BP 117/67
[2016-07-23] VITALS: BP 116/69
[2016-07-23] MEDS: BLOOD SUGAR DIAGNOSTIC 1 EACH STRIP IN SCH ×4 (00:37→17:28)
[2016-07-23] MEDS: GLYTROL 1,000 ML BAG GT PRN ×2 (01:28→21:10)
[2016-07-23] MEDS: ALBUTEROL FS 2.5 MG/3 ML VIAL.NEB NEB SCH ×6 (03:45→23:58)
[2016-07-23 04:00] VITALS: BP 105/63
[2016-07-23] MEDS: PHENYTOIN SODIUM IV 50 MG/ML VIAL IV SCH ×3 (05:20→21:10)
[2016-07-23 06:44] LABS: BASOPHILS # (AUTO) 0.1 /CMM (0.0-0.2); BASOPHILS % (AUTO) 0.6 % (0.0-2.0); DIFF TOTAL % 100 %; EOSINOPHILS # (AUTO) 2.3 /CMM (0.0-0.7); EOSINOPHILS % (AUTO) 12.8 % (0.0-6.0); HEMATOCRIT 23 % (33-45); HEMOGLOBIN 7.5 g/dL (11.5-14.8); LYMPHOCYTES # (AUTO) 2.3 /CMM (0.8-4.8); LYMPHOCYTES % (AUTO) 12.3 % (20.0-44.0); MEAN CORPUSCULAR HEMOGLOBIN 28 PG (26.0-33.0); MEAN CORPUSCULAR HGB CONC 32 g/dl (31.0-36.0); MEAN CORPUSCULAR VOLUME 87 fL (82-100); MONOCYTES # (AUTO) 1.7 /CMM (0.1-1.30); MONOCYTES % (AUTO) 9.1 % (2.0-12.0); NEUTROPHILS % (AUTO) 65.2 % (43.0-81.0); PLATELET COUNT (AUTO) 558 /CMM (150-450); RED BLOOD CELL COUNT(AUTO) 2.66 MIL/uL (4.0-5.2); WHITE BLOOD COUNT (AUTO) 18.3 K/uL (4.3-11.0)
[2016-07-23 06:45] LABS: CALCIUM, SERUM 9.4 mg/dL (8.5-10.1); POTASSIUM 3.6 mmol/L (3.5-5.1)
[2016-07-23 08:00] VITALS: BP 105/61
[2016-07-23] MEDS: ACIDOPHILUS/BULGARICUS 1 EACH TAB.CHEW GT SCH ×2 (08:29→17:28)
[2016-07-23] MEDS: LEVETIRACETAM SOL (5 ML) 100 MG/ML UDC GT SCH ×2 (08:29→17:28)
[2016-07-23] MEDS: MULTIVITAMINS,THERAPEUTIC 1 UDTAB TABLET GT SCH (08:29)
[2016-07-23] MEDS: CALCIUM CARBONATE 500 MG TAB.CHEW GT SCH ×2 (08:30→17:28)
[2016-07-23] MEDS: ASCORBIC ACID 500 MG TABLET GT SCH (08:30)
[2016-07-23] MEDS: TOPIRAMATE 25 MG TABLET GT SCH ×2 (08:30→17:28)
[2016-07-23] MEDS: ASPIRIN 81 MG TAB.CHEW PO SCH (08:30)
[2016-07-23] MEDS: PANTOPRAZOLE 40 MG VIAL IV SCH (08:30)
[2016-07-23] MEDS: OXCARBAZEPINE 150 MG TABLET GT SCH ×2 (08:30→17:28)
[2016-07-23] MEDS: CLOTRIMAZOLE 1% 15 GM TUBE TP SCH ×2 (08:31→17:29)
[2016-07-23] MEDS: HYDROGEL DRESSING 90 GM TUBE TP SCH (08:31)
[2016-07-23] MEDS: Z GUARD REMEDY 2 OZ OINT TP SCH ×2 (08:31→17:29)
[2016-07-23] MEDS: MUPIROCIN OINT 2% 22 GM TUBE SCH ×2 (08:31→21:10)
[2016-07-23] MEDS: GENTAMICIN 100 MG in IV D5W 100 ML IV SCH (09:24)
[2016-07-23] MEDS: INSULIN REGULAR, HUMAN 100 UNIT/ML 3 ML VIAL SQ PRN ×2 (11:59→17:30)
[2016-07-23 12:00] VITALS: BP 129/79
[2016-07-23 15:08] LABS: BASOPHILS # (AUTO) 0.1 /CMM (0.0-0.2); BASOPHILS % (AUTO) 0.3 % (0.0-2.0); DIFF TOTAL % 100 %; EOSINOPHILS # (AUTO) 2.3 /CMM (0.0-0.7); EOSINOPHILS % (AUTO) 11.4 % (0.0-6.0); HEMATOCRIT 26 % (33-45); HEMOGLOBIN 8.3 g/dL (11.5-14.8); LYMPHOCYTES % (AUTO) 9.9 % (20.0-44.0); MEAN CORPUSCULAR HEMOGLOBIN 28 PG (26.0-33.0); MEAN CORPUSCULAR HGB CONC 32 g/dl (31.0-36.0); MEAN CORPUSCULAR VOLUME 87 fL (82-100); MONOCYTES # (AUTO) 1.3 /CMM (0.1-1.30); MONOCYTES % (AUTO) 6.5 % (2.0-12.0); NEUTROPHILS # (AUTO) 14.5 /CMM (1.8-8.9); NEUTROPHILS % (AUTO) 71.9 % (43.0-81.0); PLATELET COUNT (AUTO) 607 /CMM (150-450); RED BLOOD CELL COUNT(AUTO) 3.02 MIL/uL (4.0-5.2); WHITE BLOOD COUNT (AUTO) 20.1 K/uL (4.3-11.0)
[2016-07-23 16:00] VITALS: BP 110/69
[2016-07-23 20:00] VITALS: BP 111/69
[2016-07-24] VITALS: BP 114/64
[2016-07-24] MEDS: BLOOD SUGAR DIAGNOSTIC 1 EACH STRIP IN SCH ×4 (00:22→17:44)
[2016-07-24] MEDS: ALBUTEROL FS 2.5 MG/3 ML VIAL.NEB NEB SCH ×6 (03:52→23:48)
[2016-07-24 04:00] VITALS: BP 115/65
[2016-07-24] MEDS: PHENYTOIN SODIUM IV 50 MG/ML VIAL IV SCH ×3 (05:28→21:28)
[2016-07-24 06:57] LABS: BASOPHILS # (AUTO) 0.1 /CMM (0.0-0.2); BASOPHILS % (AUTO) 0.5 % (0.0-2.0); DIFF TOTAL % 100 %; EOSINOPHILS # (AUTO) 2.2 /CMM (0.0-0.7); EOSINOPHILS % (AUTO) 10.9 % (0.0-6.0); HEMATOCRIT 24 % (33-45); HEMOGLOBIN 7.5 g/dL (11.5-14.8); LYMPHOCYTES # (AUTO) 2.1 /CMM (0.8-4.8); LYMPHOCYTES % (AUTO) 10.3 % (20.0-44.0); MEAN CORPUSCULAR HEMOGLOBIN 28 PG (26.0-33.0); MEAN CORPUSCULAR HGB CONC 32 g/dl (31.0-36.0); MEAN CORPUSCULAR VOLUME 87 fL (82-100); MONOCYTES # (AUTO) 1.5 /CMM (0.1-1.30); MONOCYTES % (AUTO) 7.2 % (2.0-12.0); NEUTROPHILS # (AUTO) 14.4 /CMM (1.8-8.9); NEUTROPHILS % (AUTO) 71.1 % (43.0-81.0); PLATELET COUNT (AUTO) 590 /CMM (150-450); RED BLOOD CELL COUNT(AUTO) 2.71 MIL/uL (4.0-5.2); WHITE BLOOD COUNT (AUTO) 20.3 K/uL (4.3-11.0)
[2016-07-24 06:58] LABS: CALCIUM, SERUM 8.7 mg/dL (8.5-10.1); CREATININE 2.8 mg/dL (0.6-1.3); POTASSIUM 3.6 mmol/L (3.5-5.1)
[2016-07-24] MEDS ORDERED: CALCIUM CARBONATE 500 MG TAB.CHEW ONE (07:59)
[2016-07-24 08:00] VITALS: BP_SYST 113; BP_DIAS 54; BP_DIAS 69
[2016-07-24] MEDS ORDERED: IV NS 0.9% 250 ML IV ONE (08:03)
[2016-07-24] MEDS: CALCIUM CARBONATE 500 MG TAB.CHEW GT SCH ×2 (09:13→16:12)
[2016-07-24] MEDS: ASPIRIN 81 MG TAB.CHEW PO SCH (09:13)
[2016-07-24] MEDS: LEVETIRACETAM SOL (5 ML) 100 MG/ML UDC GT SCH ×2 (09:13→16:11)
[2016-07-24] MEDS: TOPIRAMATE 25 MG TABLET GT SCH ×2 (09:13→16:12)
[2016-07-24] MEDS: PANTOPRAZOLE 40 MG VIAL IV SCH (09:13)
[2016-07-24] MEDS: ASCORBIC ACID 500 MG TABLET GT SCH (09:13)
[2016-07-24] MEDS: MULTIVITAMINS,THERAPEUTIC 1 UDTAB TABLET GT SCH (09:13)
[2016-07-24] MEDS: ACIDOPHILUS/BULGARICUS 1 EACH TAB.CHEW GT SCH ×2 (09:13→16:12)
[2016-07-24] MEDS: OXCARBAZEPINE 150 MG TABLET GT SCH ×2 (09:13→16:11)
[2016-07-24] MEDS: HYDROGEL DRESSING 90 GM TUBE TP SCH (09:14)
[2016-07-24] MEDS: Z GUARD REMEDY 2 OZ OINT TP SCH ×2 (09:14→16:13)
[2016-07-24] MEDS: CLOTRIMAZOLE 1% 15 GM TUBE TP SCH ×2 (09:14→16:12)
[2016-07-24] MEDS: MUPIROCIN OINT 2% 22 GM TUBE SCH ×2 (09:15→21:28)
[2016-07-24 12:00] VITALS: BP 118/63
[2016-07-24 16:00] VITALS: BP 120/70
[2016-07-24 20:00] VITALS: BP 99/69
[2016-07-24] MEDS: GLYTROL 1,000 ML BAG GT PRN (22:15)
[2016-07-25] VITALS (8 sets, daily range): BP systolic 99–145; BP diastolic 63–80
[2016-07-25] MEDS: BLOOD SUGAR DIAGNOSTIC 1 EACH STRIP IN SCH ×4 (00:57→17:31)
[2016-07-25] MEDS: ALBUTEROL FS 2.5 MG/3 ML VIAL.NEB NEB SCH ×6 (03:42→23:57)
[2016-07-25] MEDS: PHENYTOIN SODIUM IV 50 MG/ML VIAL IV SCH ×3 (05:00→20:54)
[2016-07-25 07:55] LABS: BASOPHILS # (AUTO) 0.1 /CMM (0.0-0.2); BASOPHILS % (AUTO) 0.4 % (0.0-2.0); DIFF TOTAL % 100 %; EOSINOPHILS # (AUTO) 1.6 /CMM (0.0-0.7); EOSINOPHILS % (AUTO) 8.8 % (0.0-6.0); HEMATOCRIT 25 % (33-45); HEMOGLOBIN 7.9 g/dL (11.5-14.8); LYMPHOCYTES # (AUTO) 2.4 /CMM (0.8-4.8); LYMPHOCYTES % (AUTO) 12.8 % (20.0-44.0); MEAN CORPUSCULAR HEMOGLOBIN 28 PG (26.0-33.0); MEAN CORPUSCULAR HGB CONC 32 g/dl (31.0-36.0); MEAN CORPUSCULAR VOLUME 87 fL (82-100); MONOCYTES # (AUTO) 1.8 /CMM (0.1-1.30); MONOCYTES % (AUTO) 9.8 % (2.0-12.0); NEUTROPHILS # (AUTO) 12.6 /CMM (1.8-8.9); NEUTROPHILS % (AUTO) 68.2 % (43.0-81.0); PLATELET COUNT (AUTO) 622 /CMM (150-450); RED BLOOD CELL COUNT(AUTO) 2.84 MIL/uL (4.0-5.2); WHITE BLOOD COUNT (AUTO) 18.5 K/uL (4.3-11.0)
[2016-07-25 08:11] LABS: CALCIUM, SERUM 9.2 mg/dL (8.5-10.1); CREATININE 2.9 mg/dL (0.6-1.3); POTASSIUM 3.9 mmol/L (3.5-5.1)
[2016-07-25] MEDS ORDERED: IV SET PRIMARY PUMP SET 1 EA INFUS.SET MC ONE (08:24)
[2016-07-25] MEDS: PANTOPRAZOLE 40 MG VIAL IV SCH (08:31)
[2016-07-25] MEDS: TOPIRAMATE 25 MG TABLET GT SCH ×2 (08:31→16:58)
[2016-07-25] MEDS: GENTAMICIN 100 MG in IV D5W 100 ML IV SCH (08:31)
[2016-07-25] MEDS: OXCARBAZEPINE 150 MG TABLET GT SCH ×2 (08:32→16:58)
[2016-07-25] MEDS: MULTIVITAMINS,THERAPEUTIC 1 UDTAB TABLET GT SCH (08:32)
[2016-07-25] MEDS: ASCORBIC ACID 500 MG TABLET GT SCH (08:32)
[2016-07-25] MEDS: LEVETIRACETAM SOL (5 ML) 100 MG/ML UDC GT SCH ×2 (08:32→16:58)
[2016-07-25] MEDS: ASPIRIN 81 MG TAB.CHEW PO SCH (08:32)
[2016-07-25] MEDS: ACIDOPHILUS/BULGARICUS 1 EACH TAB.CHEW GT SCH ×2 (08:32→16:59)
[2016-07-25] MEDS: CALCIUM CARBONATE 500 MG TAB.CHEW GT SCH ×2 (08:32→16:58)
[2016-07-25] MEDS: CLOTRIMAZOLE 1% 15 GM TUBE TP SCH ×2 (08:33→16:59)
[2016-07-25] MEDS: Z GUARD REMEDY 2 OZ OINT TP SCH ×2 (08:33→16:59)
[2016-07-25] MEDS: MUPIROCIN OINT 2% 22 GM TUBE SCH ×2 (08:33→21:20)
[2016-07-25] MEDS: HYDROGEL DRESSING 90 GM TUBE TP SCH (08:33)
[2016-07-25] MEDS: GLYTROL 1,000 ML BAG GT PRN (12:57)
[2016-07-26] VITALS: BP_SYST 107; BP_SYST 125; BP_DIAS 62; BP_DIAS 69
[2016-07-26] MEDS: ALBUTEROL FS 2.5 MG/3 ML VIAL.NEB NEB SCH ×5 (03:53→20:16)
[2016-07-26 04:00] VITALS: BP 116/72
[2016-07-26] MEDS: PHENYTOIN SODIUM IV 50 MG/ML VIAL IV SCH ×3 (05:21→21:31)
[2016-07-26] MEDS: BLOOD SUGAR DIAGNOSTIC 1 EACH STRIP IN SCH ×4 (06:00→17:04)
[2016-07-26 07:00] LABS: CALCIUM, SERUM 9.4 mg/dL (8.5-10.1); CREATININE 2.7 mg/dL (0.6-1.3); POTASSIUM 3.9 mmol/L (3.5-5.1)
[2016-07-26 08:00] VITALS: BP 116/75
[2016-07-26] MEDS: PANTOPRAZOLE 40 MG VIAL IV SCH (09:36)
[2016-07-26] MEDS: OXCARBAZEPINE 150 MG TABLET GT SCH ×2 (09:37→17:05)
[2016-07-26] MEDS: MULTIVITAMINS,THERAPEUTIC 1 UDTAB TABLET GT SCH (09:37)
[2016-07-26] MEDS: CALCIUM CARBONATE 500 MG TAB.CHEW GT SCH ×2 (09:37→17:05)
[2016-07-26] MEDS: ASCORBIC ACID 500 MG TABLET GT SCH (09:37)
[2016-07-26] MEDS: TOPIRAMATE 25 MG TABLET GT SCH ×2 (09:37→17:04)
[2016-07-26] MEDS: ACIDOPHILUS/BULGARICUS 1 EACH TAB.CHEW GT SCH ×2 (09:37→17:05)
[2016-07-26] MEDS: LEVETIRACETAM SOL (5 ML) 100 MG/ML UDC GT SCH ×2 (09:37→17:04)
[2016-07-26] MEDS: ASPIRIN 81 MG TAB.CHEW PO SCH (09:37)
[2016-07-26] MEDS: MUPIROCIN OINT 2% 22 GM TUBE SCH ×2 (09:38→21:32)
[2016-07-26] MEDS: CLOTRIMAZOLE 1% 15 GM TUBE TP SCH ×2 (09:39→17:05)
[2016-07-26] MEDS: Z GUARD REMEDY 2 OZ OINT TP SCH ×2 (09:39→17:05)
[2016-07-26] MEDS: HYDROGEL DRESSING 90 GM TUBE TP SCH (09:39)
[2016-07-26 12:00] VITALS: BP 118/63
[2016-07-26 16:00] VITALS: BP 130/73
[2016-07-26 20:00] VITALS: BP 149/78
[2016-07-26] MEDS: Z GUARD REMEDY 2 OZ OINT TP PRN (21:30)
[2016-07-26] MEDS: LORAZEPAM INJ 2 MG/ML VIAL IV PRN (21:34)
[2016-07-27] VITALS: BP 162/93
[2016-07-27] MEDS: ALBUTEROL FS 2.5 MG/3 ML VIAL.NEB NEB SCH ×7 (00:16→23:38)
[2016-07-27] MEDS: INSULIN REGULAR, HUMAN 100 UNIT/ML 3 ML VIAL SQ PRN ×2 (01:40→05:26)
[2016-07-27] MEDS: GLYTROL 1,000 ML BAG GT PRN (01:40)
[2016-07-27 04:00] VITALS: BP 108/68
[2016-07-27] MEDS: PHENYTOIN SODIUM IV 50 MG/ML VIAL IV SCH ×3 (05:14→20:32)
[2016-07-27] MEDS: BLOOD SUGAR DIAGNOSTIC 1 EACH STRIP IN SCH ×4 (05:27→17:25)
[2016-07-27 07:01] LABS: CALCIUM, SERUM 9.6 mg/dL (8.5-10.1); CREATININE 3.1 mg/dL (0.6-1.3); POTASSIUM 4.4 mmol/L (3.5-5.1)
[2016-07-27 08:00] VITALS: BP 112/71
[2016-07-27 08:02] LABS: BASOPHILS # (AUTO) 0.1 /CMM (0.0-0.2); BASOPHILS % (AUTO) 0.4 % (0.0-2.0); DIFF TOTAL % 100 %; EOSINOPHILS # (AUTO) 1.3 /CMM (0.0-0.7); EOSINOPHILS % (AUTO) 5.6 % (0.0-6.0); HEMATOCRIT 30 % (33-45); HEMOGLOBIN 9.4 g/dL (11.5-14.8); MEAN CORPUSCULAR HEMOGLOBIN 28 PG (26.0-33.0); MEAN CORPUSCULAR HGB CONC 32 g/dl (31.0-36.0); MEAN CORPUSCULAR VOLUME 87 fL (82-100); MONOCYTES # (AUTO) 1.4 /CMM (0.1-1.30); MONOCYTES % (AUTO) 6.4 % (2.0-12.0); NEUTROPHILS # (AUTO) 17.6 /CMM (1.8-8.9); NEUTROPHILS % (AUTO) 78.6 % (43.0-81.0); PLATELET COUNT (AUTO) 715 /CMM (150-450); RED BLOOD CELL COUNT(AUTO) 3.41 MIL/uL (4.0-5.2); WHITE BLOOD COUNT (AUTO) 22.4 K/uL (4.3-11.0)
[2016-07-27] MEDS: GENTAMICIN 100 MG in IV D5W 100 ML IV SCH (08:16)
[2016-07-27] MEDS: ASPIRIN 81 MG TAB.CHEW PO SCH (08:16)
[2016-07-27] MEDS: ACIDOPHILUS/BULGARICUS 1 EACH TAB.CHEW GT SCH ×2 (08:16→16:46)
[2016-07-27] MEDS: OXCARBAZEPINE 150 MG TABLET GT SCH ×2 (08:16→16:44)
[2016-07-27] MEDS: PANTOPRAZOLE 40 MG VIAL IV SCH (08:17)
[2016-07-27] MEDS: TOPIRAMATE 25 MG TABLET GT SCH ×2 (08:17→16:44)
[2016-07-27] MEDS: MUPIROCIN OINT 2% 22 GM TUBE SCH ×2 (08:17→20:32)
[2016-07-27] MEDS: LEVETIRACETAM SOL (5 ML) 100 MG/ML UDC GT SCH ×2 (08:17→16:44)
[2016-07-27] MEDS: MULTIVITAMINS,THERAPEUTIC 1 UDTAB TABLET GT SCH (08:17)
[2016-07-27] MEDS: ASCORBIC ACID 500 MG TABLET GT SCH (08:18)
[2016-07-27] MEDS: CLOTRIMAZOLE 1% 15 GM TUBE TP SCH ×2 (08:18→16:51)
[2016-07-27] MEDS: HYDROGEL DRESSING 90 GM TUBE TP SCH (08:18)
[2016-07-27] MEDS: Z GUARD REMEDY 2 OZ OINT TP PRN ×2 (08:19→16:51)
[2016-07-27] MEDS: Z GUARD REMEDY 2 OZ OINT TP SCH ×2 (09:00→16:51)
[2016-07-27] MEDS: CALCIUM CARBONATE 500 MG TAB.CHEW GT SCH ×2 (10:31→16:44)
[2016-07-27 12:00] VITALS: BP 115/71
[2016-07-27 14:56] LABS: KETONES,URINE NEGATIVE (NEGATIVE); LEUKOCYTE ESTERASE ,URINE 3+ (NEGATIVE); PH,URINE 6.5 (5.0-8.0)
[2016-07-27 14:59] LABS: ADD UA MICROSCOPIC YES
[2016-07-27 15:16] LABS: ADD URINE CULTURE YES; WBC,URINE 21-50 /HPF (0-3)
[2016-07-27 16:00] VITALS: BP 104/68
[2016-07-27 20:00] VITALS: BP 118/71
[2016-07-28] VITALS (7 sets, daily range): BP systolic 94–129; BP diastolic 59–79
[2016-07-28] MEDS: BLOOD SUGAR DIAGNOSTIC 1 EACH STRIP IN SCH ×4 (00:21→17:42)
[2016-07-28] MEDS: ALBUTEROL FS 2.5 MG/3 ML VIAL.NEB NEB SCH ×6 (03:37→23:56)
[2016-07-28] MEDS: PHENYTOIN SODIUM IV 50 MG/ML VIAL IV SCH ×3 (05:40→21:03)
[2016-07-28] MEDS: GLYTROL 1,000 ML BAG GT PRN (06:35)
[2016-07-28] MEDS: TOPIRAMATE 25 MG TABLET GT SCH ×2 (08:45→17:43)
[2016-07-28] MEDS: LEVETIRACETAM SOL (5 ML) 100 MG/ML UDC GT SCH ×2 (08:45→17:43)
[2016-07-28] MEDS: ASCORBIC ACID 500 MG TABLET GT SCH (08:45)
[2016-07-28] MEDS: CALCIUM CARBONATE 500 MG TAB.CHEW GT SCH ×2 (08:45→17:43)
[2016-07-28] MEDS: ACIDOPHILUS/BULGARICUS 1 EACH TAB.CHEW GT SCH ×2 (08:45→17:43)
[2016-07-28] MEDS: ASPIRIN 81 MG TAB.CHEW PO SCH (08:45)
[2016-07-28] MEDS: OXCARBAZEPINE 150 MG TABLET GT SCH ×2 (08:45→17:43)
[2016-07-28] MEDS: MULTIVITAMINS,THERAPEUTIC 1 UDTAB TABLET GT SCH (08:45)
[2016-07-28] MEDS: PANTOPRAZOLE 40 MG VIAL IV SCH (08:45)
[2016-07-28] MEDS: CLOTRIMAZOLE 1% 15 GM TUBE TP SCH ×2 (08:47→17:44)
[2016-07-28] MEDS: MUPIROCIN OINT 2% 22 GM TUBE SCH ×2 (08:47→21:03)
[2016-07-28] MEDS: HYDROGEL DRESSING 90 GM TUBE TP SCH (08:47)
[2016-07-28] MEDS: Z GUARD REMEDY 2 OZ OINT TP SCH ×2 (08:47→17:44)
[2016-07-28 09:11] LABS: BASOPHILS # (AUTO) 0.1 /CMM (0.0-0.2); BASOPHILS % (AUTO) 0.5 % (0.0-2.0); DIFF TOTAL % 100 %; EOSINOPHILS # (AUTO) 1.3 /CMM (0.0-0.7); EOSINOPHILS % (AUTO) 5.3 % (0.0-6.0); HEMATOCRIT 27 % (33-45); HEMOGLOBIN 8.6 g/dL (11.5-14.8); LYMPHOCYTES # (AUTO) 4.7 /CMM (0.8-4.8); LYMPHOCYTES % (AUTO) 18.8 % (20.0-44.0); MEAN CORPUSCULAR HEMOGLOBIN 28 PG (26.0-33.0); MEAN CORPUSCULAR HGB CONC 32 g/dl (31.0-36.0); MEAN CORPUSCULAR VOLUME 88 fL (82-100); MONOCYTES # (AUTO) 2.3 /CMM (0.1-1.30); MONOCYTES % (AUTO) 9.1 % (2.0-12.0); NEUTROPHILS # (AUTO) 16.6 /CMM (1.8-8.9); NEUTROPHILS % (AUTO) 66.3 % (43.0-81.0); PLATELET COUNT (AUTO) 629 /CMM (150-450)
[2016-07-28 09:20] LABS: CALCIUM, SERUM 9.4 mg/dL (8.5-10.1); CREATININE 3.4 mg/dL (0.6-1.3); PHOSPHORUS 5.3 mg/dL (2.5-4.9); POTASSIUM 5.2 mmol/L (3.5-5.1)
[2016-07-28 11:24] LABS: BAND % (MANUAL) 1 % (0.0-5.0); EOSINOPHILS % (MANUAL) 4 % (0-4); LYMPHOCYTES % (MANUAL) 6 % (16-48); PLATELET ESTIMATE INCREASED
[2016-07-28 11:25] LABS: ANISOCYTOSIS 1+
[2016-07-28] MEDS ORDERED: MEROPENEM 500 MG in IV NS 0.9% 50 ML IV SCH (23:30)
[2016-07-29] VITALS: BP 122/75
[2016-07-29] MEDS ORDERED: MEROPENEM 500 MG VIAL IV ONE (00:46)
[2016-07-29] MEDS ORDERED: IV NS 0.9% 50 ML IV ONE (00:53)
[2016-07-29] MEDS: ALBUTEROL FS 2.5 MG/3 ML VIAL.NEB NEB SCH ×5 (03:47→20:21)
[2016-07-29 04:00] VITALS: BP 99/55
[2016-07-29] MEDS: GLYTROL 1,000 ML BAG GT PRN (04:48)
[2016-07-29] MEDS: PHENYTOIN SODIUM IV 50 MG/ML VIAL IV SCH ×3 (04:48→22:14)
[2016-07-29] MEDS: BLOOD SUGAR DIAGNOSTIC 1 EACH STRIP IN SCH ×4 (06:27→18:07)
[2016-07-29 07:08] LABS: BASOPHILS # (AUTO) 0.1 /CMM (0.0-0.2); BASOPHILS % (AUTO) 0.2 % (0.0-2.0); DIFF TOTAL % 100 %; EOSINOPHILS # (AUTO) 1.3 /CMM (0.0-0.7); EOSINOPHILS % (AUTO) 5.2 % (0.0-6.0); HEMATOCRIT 26 % (33-45); HEMOGLOBIN 8.5 g/dL (11.5-14.8); LYMPHOCYTES # (AUTO) 2.7 /CMM (0.8-4.8); LYMPHOCYTES % (AUTO) 10.9 % (20.0-44.0); MEAN CORPUSCULAR HEMOGLOBIN 29 PG (26.0-33.0); MEAN CORPUSCULAR HGB CONC 32 g/dl (31.0-36.0); MEAN CORPUSCULAR VOLUME 88 fL (82-100); MONOCYTES # (AUTO) 1.8 /CMM (0.1-1.30); MONOCYTES % (AUTO) 7.2 % (2.0-12.0); NEUTROPHILS # (AUTO) 19.2 /CMM (1.8-8.9); NEUTROPHILS % (AUTO) 76.5 % (43.0-81.0); PLATELET COUNT (AUTO) 534 /CMM (150-450); RED BLOOD CELL COUNT(AUTO) 2.99 MIL/uL (4.0-5.2); WHITE BLOOD COUNT (AUTO) 25.1 K/uL (4.3-11.0)
[2016-07-29 07:24] LABS: CREATININE 3.4 mg/dL (0.6-1.3); POTASSIUM 4.8 mmol/L (3.5-5.1)
[2016-07-29 08:00] VITALS: BP 108/62
[2016-07-29] MEDS ORDERED: GENTAMICIN 100 MG in IV D5W 100 ML IV SCH (08:00)
[2016-07-29] MEDS: PANTOPRAZOLE 40 MG VIAL IV SCH (08:32)
[2016-07-29] MEDS: ACIDOPHILUS/BULGARICUS 1 EACH TAB.CHEW GT SCH ×2 (08:33→17:48)
[2016-07-29] MEDS: LEVETIRACETAM SOL (5 ML) 100 MG/ML UDC GT SCH ×2 (08:33→17:48)
[2016-07-29] MEDS: ASCORBIC ACID 500 MG TABLET GT SCH (08:33)
[2016-07-29] MEDS: MULTIVITAMINS,THERAPEUTIC 1 UDTAB TABLET GT SCH (08:33)
[2016-07-29] MEDS: CALCIUM CARBONATE 500 MG TAB.CHEW GT SCH ×2 (08:33→17:48)
[2016-07-29] MEDS: ASPIRIN 81 MG TAB.CHEW PO SCH (08:33)
[2016-07-29] MEDS: TOPIRAMATE 25 MG TABLET GT SCH ×2 (08:34→17:48)
[2016-07-29] MEDS: OXCARBAZEPINE 150 MG TABLET GT SCH ×2 (08:34→17:48)
[2016-07-29] MEDS: Z GUARD REMEDY 2 OZ OINT TP SCH ×2 (08:35→17:49)
[2016-07-29] MEDS: MUPIROCIN OINT 2% 22 GM TUBE SCH ×2 (08:35→22:15)
[2016-07-29] MEDS: CLOTRIMAZOLE 1% 15 GM TUBE TP SCH ×2 (08:36→17:49)
[2016-07-29] MEDS: HYDROGEL DRESSING 90 GM TUBE TP SCH (09:40)
[2016-07-29] MEDS: MEROPENEM 500 MG in IV NS 0.9% 50 ML IV SCH ×2 (10:40→22:20)
[2016-07-29] MEDS ORDERED: FEE PK DOSING 1 MIN EA MC ONE (11:04)
[2016-07-29 11:52] LABS: EOSINOPHILS % (MANUAL) 2 % (0-4); LYMPHOCYTES % (MANUAL) 24 % (16-48)
[2016-07-29 11:53] LABS: PLATELET ESTIMATE INCREASED
[2016-07-29 12:00] VITALS: BP_SYST 122; BP_DIAS 32; BP_DIAS 72
[2016-07-29] MEDS ORDERED: VANCOMYCIN FOR PO/GT USE 500 MG ORAL.SUSP GT SCH (12:00)
[2016-07-29] MEDS ORDERED: IV SET PRIMARY PUMP SET 1 EA INFUS.SET MC ONE (12:17)
[2016-07-29] MEDS: VANCOMYCIN 0.75 GM in IV D5W 250 ML IV SCH (12:21)
[2016-07-29 16:00] VITALS: BP_SYST 113; BP_SYST 119; BP_DIAS 68; BP_DIAS 78
[2016-07-29] MEDS: VANCOMYCIN HCL 125 MG/2.5 ML ORAL.SUSP PO SCH (17:51)
[2016-07-29] MEDS: INSULIN REGULAR, HUMAN 100 UNIT/ML 3 ML VIAL SQ PRN (18:12)
[2016-07-29 20:00] VITALS: BP 107/75
[2016-07-30] VITALS (7 sets, daily range): BP systolic 92–126; BP diastolic 49–70
[2016-07-30] MEDS: ALBUTEROL FS 2.5 MG/3 ML VIAL.NEB NEB SCH ×6 (00:05→19:58)
[2016-07-30] MEDS: VANCOMYCIN HCL 125 MG/2.5 ML ORAL.SUSP PO SCH ×4 (00:20→17:45)
[2016-07-30] MEDS: BLOOD SUGAR DIAGNOSTIC 1 EACH STRIP IN SCH ×5 (00:20→23:28)
[2016-07-30] MEDS: PHENYTOIN SODIUM IV 50 MG/ML VIAL IV SCH ×3 (05:09→21:43)
[2016-07-30] MEDS: GLYTROL 1,000 ML BAG GT PRN (05:10)
[2016-07-30 06:59] LABS: CALCIUM, SERUM 10.2 mg/dL (8.5-10.1); CREATININE 3.5 mg/dL (0.6-1.3); POTASSIUM 4.5 mmol/L (3.5-5.1)
[2016-07-30] MEDS: LEVETIRACETAM SOL (5 ML) 100 MG/ML UDC GT SCH ×2 (08:23→16:38)
[2016-07-30] MEDS: TOPIRAMATE 25 MG TABLET GT SCH ×2 (08:24→16:39)
[2016-07-30] MEDS: ACIDOPHILUS/BULGARICUS 1 EACH TAB.CHEW GT SCH ×2 (08:24→16:39)
[2016-07-30] MEDS: MULTIVITAMINS,THERAPEUTIC 1 UDTAB TABLET GT SCH (08:24)
[2016-07-30] MEDS: CALCIUM CARBONATE 500 MG TAB.CHEW GT SCH (08:24)
[2016-07-30] MEDS: PANTOPRAZOLE 40 MG VIAL IV SCH (08:24)
[2016-07-30] MEDS: OXCARBAZEPINE 150 MG TABLET GT SCH ×2 (08:24→16:38)
[2016-07-30] MEDS: ASPIRIN 81 MG TAB.CHEW PO SCH (08:24)
[2016-07-30] MEDS: ASCORBIC ACID 500 MG TABLET GT SCH (08:24)
[2016-07-30] MEDS: Z GUARD REMEDY 2 OZ OINT TP SCH ×2 (08:25→16:32)
[2016-07-30] MEDS: HYDROGEL DRESSING 90 GM TUBE TP SCH (08:25)
[2016-07-30] MEDS: MUPIROCIN OINT 2% 22 GM TUBE SCH ×2 (08:48→21:43)
[2016-07-30] MEDS: CLOTRIMAZOLE 1% 15 GM TUBE TP SCH ×2 (08:48→16:33)
[2016-07-30] MEDS: MEROPENEM 500 MG in IV NS 0.9% 50 ML IV SCH ×2 (10:59→23:25)
[2016-07-30] MEDS: VANCOMYCIN 0.75 GM in IV D5W 250 ML IV SCH (12:08)
[2016-07-30] MEDS ORDERED: DOSING PER PHARMACY-TOBRA INHALATION 1 EA XX PRN (15:00)
[2016-07-30 19:37] LABS: SUBTYPE NOVEL H1N1 PCR Negative (Negative); TYPE INFLUENZA A PCR Negative (Negative)
[2016-07-30] MEDS: TOBRAMYCIN 80 MG/2 ML VIAL INH SCH (21:12)
[2016-07-31] VITALS: BP_SYST 115; BP_SYST 116; BP_DIAS 61; BP_DIAS 72
[2016-07-31] MEDS: ALBUTEROL FS 2.5 MG/3 ML VIAL.NEB NEB SCH ×7 (00:01→23:56)
[2016-07-31] MEDS: VANCOMYCIN HCL 125 MG/2.5 ML ORAL.SUSP PO SCH ×4 (00:56→18:07)
[2016-07-31 04:00] VITALS: BP 111/69
[2016-07-31] MEDS: PHENYTOIN SODIUM IV 50 MG/ML VIAL IV SCH ×3 (04:29→20:26)
[2016-07-31] MEDS: BLOOD SUGAR DIAGNOSTIC 1 EACH STRIP IN SCH ×3 (06:03→18:06)
[2016-07-31 06:37] LABS: BASOPHILS # (AUTO) 0.1 /CMM (0.0-0.2); BASOPHILS % (AUTO) 0.6 % (0.0-2.0); DIFF TOTAL % 100 %; EOSINOPHILS # (AUTO) 1.4 /CMM (0.0-0.7); EOSINOPHILS % (AUTO) 7.6 % (0.0-6.0); HEMATOCRIT 24 % (33-45); HEMOGLOBIN 7.9 g/dL (11.5-14.8); LYMPHOCYTES # (AUTO) 3.2 /CMM (0.8-4.8); LYMPHOCYTES % (AUTO) 17.4 % (20.0-44.0); MEAN CORPUSCULAR HEMOGLOBIN 29 PG (26.0-33.0); MEAN CORPUSCULAR HGB CONC 33 g/dl (31.0-36.0); MEAN CORPUSCULAR VOLUME 88 fL (82-100); MONOCYTES # (AUTO) 1.5 /CMM (0.1-1.30); MONOCYTES % (AUTO) 8.3 % (2.0-12.0); NEUTROPHILS # (AUTO) 12.1 /CMM (1.8-8.9); NEUTROPHILS % (AUTO) 66.1 % (43.0-81.0); PLATELET COUNT (AUTO) 498 /CMM (150-450); RED BLOOD CELL COUNT(AUTO) 2.77 MIL/uL (4.0-5.2); WHITE BLOOD COUNT (AUTO) 18.4 K/uL (4.3-11.0)
[2016-07-31 07:16] LABS: CREATININE 3.3 mg/dL (0.6-1.3); PHOSPHORUS 4.6 mg/dL (2.5-4.9); POTASSIUM 4.5 mmol/L (3.5-5.1)
[2016-07-31 08:00] VITALS: BP 116/69
[2016-07-31] MEDS: LEVETIRACETAM SOL (5 ML) 100 MG/ML UDC GT SCH ×2 (08:00→16:21)
[2016-07-31] MEDS: ACIDOPHILUS/BULGARICUS 1 EACH TAB.CHEW GT SCH ×2 (08:00→16:21)
[2016-07-31] MEDS: MULTIVITAMINS,THERAPEUTIC 1 UDTAB TABLET GT SCH (08:01)
[2016-07-31] MEDS: TOPIRAMATE 25 MG TABLET GT SCH ×2 (08:01→16:21)
[2016-07-31] MEDS: HYDROGEL DRESSING 90 GM TUBE TP SCH (08:02)
[2016-07-31] MEDS: PANTOPRAZOLE 40 MG VIAL IV SCH (08:02)
[2016-07-31] MEDS: OXCARBAZEPINE 150 MG TABLET GT SCH ×2 (08:02→16:21)
[2016-07-31] MEDS: ASCORBIC ACID 500 MG TABLET GT SCH (08:02)
[2016-07-31] MEDS: ASPIRIN 81 MG TAB.CHEW PO SCH (08:02)
[2016-07-31] MEDS: Z GUARD REMEDY 2 OZ OINT TP SCH ×2 (08:02→16:13)
[2016-07-31 08:30] LABS: ALBUMIN 2.2 g/dL (3.4-5.0); BILIRUBIN,TOTAL 0.2 mg/dL (0.2-1.0); TOTAL PROTEIN, SERUM 10.5 g/dL (6.4-8.2)
[2016-07-31] MEDS: MUPIROCIN OINT 2% 22 GM TUBE SCH ×2 (09:06→20:27)
[2016-07-31] MEDS: CLOTRIMAZOLE 1% 15 GM TUBE TP SCH ×2 (09:06→16:13)
[2016-07-31] MEDS: TOBRAMYCIN 80 MG/2 ML VIAL INH SCH ×2 (11:08→21:00)
[2016-07-31] MEDS: MEROPENEM 500 MG in IV NS 0.9% 50 ML IV SCH ×2 (11:13→22:10)
[2016-07-31 12:00] VITALS: BP 111/66
[2016-07-31 16:00] VITALS: BP 111/66
[2016-07-31 20:00] VITALS: BP 104/55
[2016-07-31] MEDS: GLYTROL 1,000 ML BAG GT PRN (21:58)
[2016-08-01] VITALS: BP 120/75
[2016-08-01] MEDS: BLOOD SUGAR DIAGNOSTIC 1 EACH STRIP IN SCH ×5 (00:08→23:05)
[2016-08-01] MEDS: VANCOMYCIN HCL 125 MG/2.5 ML ORAL.SUSP PO SCH ×5 (00:08→23:05)
[2016-08-01 04:00] VITALS: BP 124/74
[2016-08-01] MEDS: ALBUTEROL FS 2.5 MG/3 ML VIAL.NEB NEB SCH ×6 (04:04→23:54)
[2016-08-01] MEDS: PHENYTOIN SODIUM IV 50 MG/ML VIAL IV SCH ×3 (04:40→21:24)
[2016-08-01] MEDS: LORAZEPAM INJ 2 MG/ML VIAL IV PRN (06:20)
[2016-08-01 06:38] LABS: CALCIUM, SERUM 10.3 mg/dL (8.5-10.1); CREATININE 3.2 mg/dL (0.6-1.3); POTASSIUM 4.4 mmol/L (3.5-5.1)
[2016-08-01 08:00] VITALS: BP 117/72
[2016-08-01 08:08] LABS: VIT D, 25-HYDROXY 20.7 ng/mL (30.0-100.0)
[2016-08-01] MEDS: ACIDOPHILUS/BULGARICUS 1 EACH TAB.CHEW GT SCH ×2 (08:54→17:09)
[2016-08-01] MEDS: ASCORBIC ACID 500 MG TABLET GT SCH (08:54)
[2016-08-01] MEDS: MULTIVITAMINS,THERAPEUTIC 1 UDTAB TABLET GT SCH (08:54)
[2016-08-01] MEDS: TOPIRAMATE 25 MG TABLET GT SCH ×2 (08:54→17:09)
[2016-08-01] MEDS: ASPIRIN 81 MG TAB.CHEW PO SCH (08:54)
[2016-08-01] MEDS: LEVETIRACETAM SOL (5 ML) 100 MG/ML UDC GT SCH ×2 (08:55→17:09)
[2016-08-01] MEDS: PANTOPRAZOLE 40 MG VIAL IV SCH (08:55)
[2016-08-01] MEDS: OXCARBAZEPINE 150 MG TABLET GT SCH ×2 (08:55→17:09)
[2016-08-01] MEDS: MUPIROCIN OINT 2% 22 GM TUBE SCH ×2 (08:56→21:26)
[2016-08-01] MEDS: CLOTRIMAZOLE 1% 15 GM TUBE TP SCH ×2 (08:56→17:10)
[2016-08-01] MEDS: HYDROGEL DRESSING 90 GM TUBE TP SCH (08:56)
[2016-08-01] MEDS: Z GUARD REMEDY 2 OZ OINT TP SCH ×2 (09:00→17:10)
[2016-08-01] MEDS: MEROPENEM 500 MG in IV NS 0.9% 50 ML IV SCH ×2 (10:20→23:05)
[2016-08-01] MEDS: TOBRAMYCIN 80 MG/2 ML VIAL INH SCH ×2 (10:24→21:42)
[2016-08-01 11:15] LABS: PTH, INTACT 15 pg/mL (15-65)
[2016-08-01 12:00] VITALS: BP 132/86
[2016-08-01 16:00] VITALS: BP_SYST 106; BP_DIAS 64; BP_DIAS 69
[2016-08-01] MEDS: GLYTROL 1,000 ML BAG GT PRN (18:23)
[2016-08-01 20:00] VITALS: BP_SYST 130; BP_SYST 148; BP_DIAS 78; BP_DIAS 90
[2016-08-01] MEDS ORDERED: IV SET PRIMARY PUMP SET 1 EA INFUS.SET MC ONE (23:07)
[2016-08-01] MEDS ORDERED: SECONDARY IV SET 1 EA INFUS.SET MC ONE (23:08)
[2016-08-01] MEDS ORDERED: IV NS 0.9% 250 ML IV ONE ×2 (23:08→23:30)
[2016-08-02] VITALS: BP 101/60
[2016-08-02 04:00] VITALS: BP 113/43
[2016-08-02] MEDS: ALBUTEROL FS 2.5 MG/3 ML VIAL.NEB NEB SCH ×5 (04:02→19:41)
[2016-08-02] MEDS: BLOOD SUGAR DIAGNOSTIC 1 EACH STRIP IN SCH ×4 (05:21→23:33)
[2016-08-02] MEDS: PHENYTOIN SODIUM IV 50 MG/ML VIAL IV SCH ×3 (05:21→21:06)
[2016-08-02] MEDS: VANCOMYCIN HCL 125 MG/2.5 ML ORAL.SUSP PO SCH ×4 (05:22→23:32)
[2016-08-02 06:53] LABS: CALCIUM, SERUM 10.5 mg/dL (8.5-10.1); CREATININE 3.2 mg/dL (0.6-1.3); POTASSIUM 4.6 mmol/L (3.5-5.1)
[2016-08-02 08:00] VITALS: BP_SYST 105; BP_SYST 124; BP_DIAS 65
[2016-08-02] MEDS: ACIDOPHILUS/BULGARICUS 1 EACH TAB.CHEW GT SCH ×2 (08:37→16:41)
[2016-08-02] MEDS: LEVETIRACETAM SOL (5 ML) 100 MG/ML UDC GT SCH ×2 (08:37→16:41)
[2016-08-02] MEDS: MULTIVITAMINS,THERAPEUTIC 1 UDTAB TABLET GT SCH (08:39)
[2016-08-02] MEDS: TOPIRAMATE 25 MG TABLET GT SCH ×2 (08:40→16:41)
[2016-08-02] MEDS: OXCARBAZEPINE 150 MG TABLET GT SCH ×2 (08:40→16:41)
[2016-08-02] MEDS: ASPIRIN 81 MG TAB.CHEW PO SCH (08:40)
[2016-08-02] MEDS: ASCORBIC ACID 500 MG TABLET GT SCH (08:40)
[2016-08-02] MEDS: PANTOPRAZOLE 40 MG VIAL IV SCH (08:41)
[2016-08-02] MEDS: HYDROGEL DRESSING 90 GM TUBE TP SCH (08:41)
[2016-08-02] MEDS: Z GUARD REMEDY 2 OZ OINT TP PRN (08:42)
[2016-08-02] MEDS: CLOTRIMAZOLE 1% 15 GM TUBE TP SCH ×2 (08:42→16:42)
[2016-08-02] MEDS: MUPIROCIN OINT 2% 22 GM TUBE SCH ×2 (08:42→21:08)
[2016-08-02] MEDS: Z GUARD REMEDY 2 OZ OINT TP SCH ×2 (08:44→16:42)
[2016-08-02] MEDS: TOBRAMYCIN 80 MG/2 ML VIAL INH SCH ×2 (09:53→20:03)
[2016-08-02] MEDS: MEROPENEM 500 MG in IV NS 0.9% 50 ML IV SCH ×2 (11:17→23:33)
[2016-08-02] MEDS: GLYTROL 1,000 ML BAG GT PRN (11:18)
[2016-08-02] MEDS: INSULIN REGULAR, HUMAN 100 UNIT/ML 3 ML VIAL SQ PRN ×2 (11:32→17:51)
[2016-08-02 12:00] VITALS: BP_SYST 100; BP_SYST 110; BP_DIAS 70
[2016-08-02 15:37] LABS: BASOPHILS # (AUTO) 0.1 /CMM (0.0-0.2); BASOPHILS % (AUTO) 0.8 % (0.0-2.0); DIFF TOTAL % 100 %; EOSINOPHILS # (AUTO) 1.1 /CMM (0.0-0.7); EOSINOPHILS % (AUTO) 7.5 % (0.0-6.0); HEMATOCRIT 27 % (33-45); HEMOGLOBIN 8.5 g/dL (11.5-14.8); LYMPHOCYTES # (AUTO) 3.3 /CMM (0.8-4.8); LYMPHOCYTES % (AUTO) 22.3 % (20.0-44.0); MEAN CORPUSCULAR HEMOGLOBIN 28 PG (26.0-33.0); MEAN CORPUSCULAR HGB CONC 31 g/dl (31.0-36.0); MEAN CORPUSCULAR VOLUME 89 fL (82-100); MONOCYTES # (AUTO) 1.2 /CMM (0.1-1.30); MONOCYTES % (AUTO) 8.1 % (2.0-12.0); NEUTROPHILS # (AUTO) 9.2 /CMM (1.8-8.9); NEUTROPHILS % (AUTO) 61.3 % (43.0-81.0); PLATELET COUNT (AUTO) 423 /CMM (150-450); RED BLOOD CELL COUNT(AUTO) 3.05 MIL/uL (4.0-5.2)
[2016-08-02 16:00] VITALS: BP 95/57
[2016-08-02 20:00] VITALS: BP 108/60
[2016-08-03] VITALS: BP 107/63
[2016-08-03] MEDS: ALBUTEROL FS 2.5 MG/3 ML VIAL.NEB NEB SCH ×7 (00:25→23:33)
[2016-08-03] MEDS ORDERED: IV NS 0.9% 250 ML IV ONE (02:46)
[2016-08-03] MEDS: GLYTROL 1,000 ML BAG GT PRN (02:52)
[2016-08-03 04:00] VITALS: BP 102/58
[2016-08-03] MEDS: PHENYTOIN SODIUM IV 50 MG/ML VIAL IV SCH ×3 (05:38→22:25)
[2016-08-03] MEDS: BLOOD SUGAR DIAGNOSTIC 1 EACH STRIP IN SCH ×3 (05:38→17:24)
[2016-08-03] MEDS: VANCOMYCIN HCL 125 MG/2.5 ML ORAL.SUSP PO SCH ×3 (05:43→17:11)
[2016-08-03 06:52] LABS: BASOPHILS # (AUTO) 0.1 /CMM (0.0-0.2); BASOPHILS % (AUTO) 0.4 % (0.0-2.0); DIFF TOTAL % 100 %; EOSINOPHILS # (AUTO) 1.1 /CMM (0.0-0.7); EOSINOPHILS % (AUTO) 6.3 % (0.0-6.0); HEMATOCRIT 28 % (33-45); HEMOGLOBIN 8.6 g/dL (11.5-14.8); LYMPHOCYTES # (AUTO) 3.3 /CMM (0.8-4.8); LYMPHOCYTES % (AUTO) 18.7 % (20.0-44.0); MEAN CORPUSCULAR HEMOGLOBIN 28 PG (26.0-33.0); MEAN CORPUSCULAR HGB CONC 31 g/dl (31.0-36.0); MEAN CORPUSCULAR VOLUME 89 fL (82-100); MONOCYTES # (AUTO) 1.3 /CMM (0.1-1.30); MONOCYTES % (AUTO) 7.1 % (2.0-12.0); NEUTROPHILS % (AUTO) 67.5 % (43.0-81.0); PLATELET COUNT (AUTO) 379 /CMM (150-450); RED BLOOD CELL COUNT(AUTO) 3.09 MIL/uL (4.0-5.2); WHITE BLOOD COUNT (AUTO) 17.8 K/uL (4.3-11.0)
[2016-08-03 07:12] LABS: CALCIUM, SERUM 10.6 mg/dL (8.5-10.1); CREATININE 3.2 mg/dL (0.6-1.3); POTASSIUM 5.1 mmol/L (3.5-5.1)
[2016-08-03 08:00] VITALS: BP 99/63
[2016-08-03] MEDS: OXCARBAZEPINE 150 MG TABLET GT SCH ×2 (09:02→17:00)
[2016-08-03] MEDS: MULTIVITAMINS,THERAPEUTIC 1 UDTAB TABLET GT SCH (09:02)
[2016-08-03] MEDS: ASCORBIC ACID 500 MG TABLET GT SCH (09:02)
[2016-08-03] MEDS: LEVETIRACETAM SOL (5 ML) 100 MG/ML UDC GT SCH ×2 (09:02→17:00)
[2016-08-03] MEDS: PANTOPRAZOLE 40 MG VIAL IV SCH (09:02)
[2016-08-03] MEDS: TOPIRAMATE 25 MG TABLET GT SCH ×2 (09:02→17:00)
[2016-08-03] MEDS: ACIDOPHILUS/BULGARICUS 1 EACH TAB.CHEW GT SCH ×2 (09:02→17:00)
[2016-08-03] MEDS: ASPIRIN 81 MG TAB.CHEW PO SCH (09:02)
[2016-08-03] MEDS: HYDROGEL DRESSING 90 GM TUBE TP SCH (09:04)
[2016-08-03] MEDS: CLOTRIMAZOLE 1% 15 GM TUBE TP SCH ×2 (09:04→17:22)
[2016-08-03] MEDS: Z GUARD REMEDY 2 OZ OINT TP PRN (09:05)
[2016-08-03] MEDS: Z GUARD REMEDY 2 OZ OINT TP SCH ×2 (09:06→17:22)
[2016-08-03] MEDS: TOBRAMYCIN 80 MG/2 ML VIAL INH SCH ×2 (09:12→21:34)
[2016-08-03] MEDS: MEROPENEM 500 MG in IV NS 0.9% 50 ML IV SCH ×2 (10:49→22:26)
[2016-08-03] MEDS ORDERED: EPOETIN ALFA (10,000 UNIT) 10,000 UNIT/ML VIAL SQ ONE (11:00)
[2016-08-03] MEDS: MUPIROCIN OINT 2% 22 GM TUBE SCH ×2 (11:07→22:26)
[2016-08-03 12:00] VITALS: BP 132/79
[2016-08-03] MEDS: LORAZEPAM INJ 2 MG/ML VIAL IV PRN (15:31)
[2016-08-03 16:00] VITALS: BP 94/65
[2016-08-03 18:19] LABS: IRON, SERUM 53 ug/dl (50-175); PERCENT SATURATION 28 % (14-33); TOTAL IRON BINDING CAPACITY 188 ug/dl (250-450)
[2016-08-03 20:00] VITALS: BP 112/67
[2016-08-04] VITALS: BP 108/67
[2016-08-04] MEDS: BLOOD SUGAR DIAGNOSTIC 1 EACH STRIP IN SCH ×5 (00:07→23:33)
[2016-08-04] MEDS: ALBUTEROL FS 2.5 MG/3 ML VIAL.NEB NEB SCH ×6 (03:32→23:57)
[2016-08-04 04:00] VITALS: BP 91/69
[2016-08-04] MEDS: VANCOMYCIN HCL 125 MG/2.5 ML ORAL.SUSP PO SCH ×5 (05:12→23:26)
[2016-08-04] MEDS: PHENYTOIN SODIUM IV 50 MG/ML VIAL IV SCH ×3 (05:18→20:27)
[2016-08-04 06:42] LABS: BASOPHILS # (AUTO) 0.1 /CMM (0.0-0.2); BASOPHILS % (AUTO) 0.5 % (0.0-2.0); DIFF TOTAL % 100 %; EOSINOPHILS # (AUTO) 0.6 /CMM (0.0-0.7); EOSINOPHILS % (AUTO) 4.4 % (0.0-6.0); HEMATOCRIT 26 % (33-45); HEMOGLOBIN 8.3 g/dL (11.5-14.8); LYMPHOCYTES # (AUTO) 2.4 /CMM (0.8-4.8); LYMPHOCYTES % (AUTO) 16.1 % (20.0-44.0); MEAN CORPUSCULAR HEMOGLOBIN 29 PG (26.0-33.0); MEAN CORPUSCULAR HGB CONC 33 g/dl (31.0-36.0); MEAN CORPUSCULAR VOLUME 88 fL (82-100); MONOCYTES # (AUTO) 1.2 /CMM (0.1-1.30); MONOCYTES % (AUTO) 8.1 % (2.0-12.0); NEUTROPHILS # (AUTO) 10.5 /CMM (1.8-8.9); NEUTROPHILS % (AUTO) 70.9 % (43.0-81.0); PLATELET COUNT (AUTO) 418 /CMM (150-450); WHITE BLOOD COUNT (AUTO) 14.8 K/uL (4.3-11.0)
[2016-08-04 06:47] LABS: CALCIUM, SERUM 10.5 mg/dL (8.5-10.1); CREATININE 3.2 mg/dL (0.6-1.3); POTASSIUM 4.5 mmol/L (3.5-5.1)
[2016-08-04 08:00] VITALS: BP 113/69
[2016-08-04] MEDS: TOBRAMYCIN 80 MG/2 ML VIAL INH SCH ×2 (08:46→21:54)
[2016-08-04] MEDS: ACIDOPHILUS/BULGARICUS 1 EACH TAB.CHEW GT SCH ×2 (09:00→17:46)
[2016-08-04] MEDS: TOPIRAMATE 25 MG TABLET GT SCH ×2 (09:00→17:48)
[2016-08-04] MEDS: MULTIVITAMINS,THERAPEUTIC 1 UDTAB TABLET GT SCH (09:00)
[2016-08-04] MEDS: LEVETIRACETAM SOL (5 ML) 100 MG/ML UDC GT SCH ×2 (09:00→17:45)
[2016-08-04] MEDS: ASPIRIN 81 MG TAB.CHEW PO SCH (09:00)
[2016-08-04] MEDS: ASCORBIC ACID 500 MG TABLET GT SCH (09:00)
[2016-08-04] MEDS: OXCARBAZEPINE 150 MG TABLET GT SCH ×2 (09:00→17:45)
[2016-08-04] MEDS: PANTOPRAZOLE 40 MG VIAL IV SCH (09:05)
[2016-08-04] MEDS: HYDROGEL DRESSING 90 GM TUBE TP SCH (09:58)
[2016-08-04] MEDS: Z GUARD REMEDY 2 OZ OINT TP SCH ×2 (10:21→18:02)
[2016-08-04] MEDS: CLOTRIMAZOLE 1% 15 GM TUBE TP SCH ×2 (10:22→17:50)
[2016-08-04] MEDS: MUPIROCIN OINT 2% 22 GM TUBE SCH ×2 (10:22→20:27)
[2016-08-04 12:00] VITALS: BP 128/72
[2016-08-04] MEDS: MEROPENEM 500 MG in IV NS 0.9% 50 ML IV SCH ×2 (12:11→23:26)
[2016-08-04] MEDS ORDERED: DIATR MEGLU/DIATRIZOATE SODIUM 30 ML BOTTLE (GASTROGRAPHIN) ONE (12:54)
[2016-08-04 16:00] VITALS: BP 116/62
[2016-08-04] MEDS: Z GUARD REMEDY 2 OZ OINT TP PRN (18:00)
[2016-08-04] MEDS: GLYTROL 1,000 ML BAG GT PRN (18:11)
[2016-08-04 20:00] VITALS: BP 117/79
[2016-08-04] MEDS ORDERED: IV NS 0.9% 250 ML IV ONE (23:16)
[2016-08-04] MEDS: ACETAMINOPHEN 325 MG TABLET PO PRN (23:26)
[2016-08-04] MEDS: INSULIN REGULAR, HUMAN 100 UNIT/ML 3 ML VIAL SQ PRN (23:34)
[2016-08-05] VITALS (7 sets, daily range): BP systolic 115–134; BP diastolic 68–86
[2016-08-05] MEDS: ALBUTEROL FS 2.5 MG/3 ML VIAL.NEB NEB SCH ×6 (03:20→23:30)
[2016-08-05] MEDS: BLOOD SUGAR DIAGNOSTIC 1 EACH STRIP IN SCH ×4 (05:35→23:49)
[2016-08-05] MEDS: Z GUARD REMEDY 2 OZ OINT TP PRN (05:36)
[2016-08-05] MEDS: INSULIN REGULAR, HUMAN 100 UNIT/ML 3 ML VIAL SQ PRN (05:36)
[2016-08-05] MEDS: HYDROGEL DRESSING 90 GM TUBE TP PRN (05:37)
[2016-08-05] MEDS: PHENYTOIN SODIUM IV 50 MG/ML VIAL IV SCH ×3 (05:37→21:03)
[2016-08-05] MEDS: VANCOMYCIN HCL 125 MG/2.5 ML ORAL.SUSP PO SCH ×4 (05:37→23:40)
[2016-08-05 07:09] LABS: BASOPHILS # (AUTO) 0.1 /CMM (0.0-0.2); BASOPHILS % (AUTO) 0.6 % (0.0-2.0); DIFF TOTAL % 100 %; EOSINOPHILS # (AUTO) 0.4 /CMM (0.0-0.7); EOSINOPHILS % (AUTO) 2.5 % (0.0-6.0); HEMATOCRIT 28 % (33-45); HEMOGLOBIN 8.8 g/dL (11.5-14.8); LYMPHOCYTES # (AUTO) 2.9 /CMM (0.8-4.8); LYMPHOCYTES % (AUTO) 16.8 % (20.0-44.0); MEAN CORPUSCULAR HEMOGLOBIN 28 PG (26.0-33.0); MEAN CORPUSCULAR HGB CONC 32 g/dl (31.0-36.0); MEAN CORPUSCULAR VOLUME 89 fL (82-100); MONOCYTES % (AUTO) 11.4 % (2.0-12.0); NEUTROPHILS # (AUTO) 11.8 /CMM (1.8-8.9); NEUTROPHILS % (AUTO) 68.7 % (43.0-81.0); PLATELET COUNT (AUTO) 407 /CMM (150-450); RED BLOOD CELL COUNT(AUTO) 3.12 MIL/uL (4.0-5.2); WHITE BLOOD COUNT (AUTO) 17.1 K/uL (4.3-11.0)
[2016-08-05] MEDS: PANTOPRAZOLE 40 MG VIAL IV SCH (08:36)
[2016-08-05] MEDS: LEVETIRACETAM SOL (5 ML) 100 MG/ML UDC GT SCH ×2 (08:36→17:45)
[2016-08-05] MEDS: OXCARBAZEPINE 150 MG TABLET GT SCH ×2 (08:36→17:45)
[2016-08-05] MEDS: ACIDOPHILUS/BULGARICUS 1 EACH TAB.CHEW GT SCH ×2 (08:37→17:45)
[2016-08-05] MEDS: TOPIRAMATE 25 MG TABLET GT SCH ×2 (08:37→17:45)
[2016-08-05] MEDS: ASCORBIC ACID 500 MG TABLET GT SCH (08:37)
[2016-08-05] MEDS: MULTIVITAMINS,THERAPEUTIC 1 UDTAB TABLET GT SCH (08:37)
[2016-08-05] MEDS: ASPIRIN 81 MG TAB.CHEW PO SCH (08:38)
[2016-08-05] MEDS: HYDROGEL DRESSING 90 GM TUBE TP SCH ×2 (08:38→17:53)
[2016-08-05] MEDS: Z GUARD REMEDY 2 OZ OINT TP SCH ×2 (08:38→17:53)
[2016-08-05] MEDS: MUPIROCIN OINT 2% 22 GM TUBE SCH ×2 (08:39→17:53)
[2016-08-05] MEDS: CLOTRIMAZOLE 1% 15 GM TUBE TP SCH ×2 (08:41→17:54)
[2016-08-05] MEDS: TOBRAMYCIN 80 MG/2 ML VIAL INH SCH ×2 (09:00→21:17)
[2016-08-05] MEDS: MEROPENEM 500 MG in IV NS 0.9% 50 ML IV SCH ×2 (12:16→23:40)
[2016-08-05] MEDS ORDERED: IV SET PRIMARY PUMP SET 1 EA INFUS.SET MC ONE (12:17)
[2016-08-05] MEDS: IV NS 0.9% 1,000 ML IV PRN (12:23)
[2016-08-05] MEDS: LORAZEPAM INJ 2 MG/ML VIAL IV PRN ×2 (17:39→20:09)
[2016-08-05] MEDS: GLYTROL 1,000 ML BAG GT PRN (20:02)
[2016-08-06] VITALS: BP 122/75
[2016-08-06] MEDS: IV NS 0.9% 1,000 ML IV PRN ×2 (03:04→15:16)
[2016-08-06] MEDS: ALBUTEROL FS 2.5 MG/3 ML VIAL.NEB NEB SCH ×6 (03:36→23:56)
[2016-08-06 04:00] VITALS: BP 112/55
[2016-08-06] MEDS: PHENYTOIN SODIUM IV 50 MG/ML VIAL IV SCH ×3 (05:25→20:01)
[2016-08-06] MEDS: VANCOMYCIN HCL 125 MG/2.5 ML ORAL.SUSP PO SCH ×4 (05:46→23:15)
[2016-08-06] MEDS: BLOOD SUGAR DIAGNOSTIC 1 EACH STRIP IN SCH ×4 (05:46→23:23)
[2016-08-06 06:53] LABS: CALCIUM, SERUM 9.3 mg/dL (8.5-10.1); CREATININE 3.1 mg/dL (0.6-1.3); PHOSPHORUS 5.7 mg/dL (2.5-4.9); POTASSIUM 4.1 mmol/L (3.5-5.1)
[2016-08-06 07:06] LABS: BASOPHILS # (AUTO) 0.1 /CMM (0.0-0.2); BASOPHILS % (AUTO) 0.6 % (0.0-2.0); DIFF TOTAL % 100 %; EOSINOPHILS # (AUTO) 0.9 /CMM (0.0-0.7); EOSINOPHILS % (AUTO) 5.3 % (0.0-6.0); HEMATOCRIT 27 % (33-45); HEMOGLOBIN 8.1 g/dL (11.5-14.8); LYMPHOCYTES # (AUTO) 2.6 /CMM (0.8-4.8); LYMPHOCYTES % (AUTO) 15.1 % (20.0-44.0); MEAN CORPUSCULAR HEMOGLOBIN 27 PG (26.0-33.0); MEAN CORPUSCULAR HGB CONC 30 g/dl (31.0-36.0); MEAN CORPUSCULAR VOLUME 90 fL (82-100); MONOCYTES # (AUTO) 1.9 /CMM (0.1-1.30); MONOCYTES % (AUTO) 10.8 % (2.0-12.0); NEUTROPHILS # (AUTO) 11.8 /CMM (1.8-8.9); NEUTROPHILS % (AUTO) 68.2 % (43.0-81.0); PLATELET COUNT (AUTO) 411 /CMM (150-450); RED BLOOD CELL COUNT(AUTO) 3.05 MIL/uL (4.0-5.2); WHITE BLOOD COUNT (AUTO) 17.3 K/uL (4.3-11.0)
[2016-08-06 08:00] VITALS: BP 114/64
[2016-08-06] MEDS: TOBRAMYCIN 80 MG/2 ML VIAL INH SCH ×2 (09:06→21:33)
[2016-08-06] MEDS: PANTOPRAZOLE 40 MG VIAL IV SCH (09:06)
[2016-08-06] MEDS: ACIDOPHILUS/BULGARICUS 1 EACH TAB.CHEW GT SCH ×2 (09:07→16:49)
[2016-08-06] MEDS: ASCORBIC ACID 500 MG TABLET GT SCH (09:07)
[2016-08-06] MEDS: LEVETIRACETAM SOL (5 ML) 100 MG/ML UDC GT SCH ×2 (09:07→16:49)
[2016-08-06] MEDS: OXCARBAZEPINE 150 MG TABLET GT SCH ×2 (09:07→16:50)
[2016-08-06] MEDS: TOPIRAMATE 25 MG TABLET GT SCH ×2 (09:07→16:49)
[2016-08-06] MEDS: MULTIVITAMINS,THERAPEUTIC 1 UDTAB TABLET GT SCH (09:07)
[2016-08-06] MEDS: ASPIRIN 81 MG TAB.CHEW PO SCH (09:07)
[2016-08-06] MEDS: Z GUARD REMEDY 2 OZ OINT TP SCH ×2 (09:08→16:52)
[2016-08-06] MEDS: MUPIROCIN OINT 2% 22 GM TUBE SCH ×2 (09:08→20:04)
[2016-08-06] MEDS: CLOTRIMAZOLE 1% 15 GM TUBE TP SCH ×2 (09:08→16:53)
[2016-08-06 12:00] VITALS: BP 102/59
[2016-08-06] MEDS: MEROPENEM 500 MG in IV NS 0.9% 50 ML IV SCH ×2 (12:20→23:15)
[2016-08-06] MEDS: GLYTROL 1,000 ML BAG GT PRN (15:16)
[2016-08-06 16:00] VITALS: BP 104/57
[2016-08-06 20:00] VITALS: BP 109/62
[2016-08-07] VITALS (7 sets, daily range): BP systolic 95–163; BP diastolic 55–109
[2016-08-07] MEDS: ALBUTEROL FS 2.5 MG/3 ML VIAL.NEB NEB SCH ×6 (03:44→23:07)
[2016-08-07] MEDS: VANCOMYCIN HCL 125 MG/2.5 ML ORAL.SUSP PO SCH ×4 (05:00→23:37)
[2016-08-07] MEDS: PHENYTOIN SODIUM IV 50 MG/ML VIAL IV SCH ×3 (05:00→21:00)
[2016-08-07] MEDS: BLOOD SUGAR DIAGNOSTIC 1 EACH STRIP IN SCH ×4 (05:02→23:41)
[2016-08-07] MEDS: ASPIRIN 81 MG TAB.CHEW PO SCH (09:13)
[2016-08-07] MEDS: LEVETIRACETAM SOL (5 ML) 100 MG/ML UDC GT SCH ×2 (09:13→17:48)
[2016-08-07] MEDS: OXCARBAZEPINE 150 MG TABLET GT SCH ×2 (09:13→17:49)
[2016-08-07] MEDS: MULTIVITAMINS,THERAPEUTIC 1 UDTAB TABLET GT SCH (09:13)
[2016-08-07] MEDS: TOPIRAMATE 25 MG TABLET GT SCH ×2 (09:14→17:48)
[2016-08-07] MEDS: ACIDOPHILUS/BULGARICUS 1 EACH TAB.CHEW GT SCH ×2 (09:14→17:48)
[2016-08-07] MEDS: ASCORBIC ACID 500 MG TABLET GT SCH (09:14)
[2016-08-07] MEDS: PANTOPRAZOLE 40 MG VIAL IV SCH (09:14)
[2016-08-07] MEDS: HYDROGEL DRESSING 90 GM TUBE TP SCH (09:19)
[2016-08-07] MEDS: MUPIROCIN OINT 2% 22 GM TUBE SCH ×2 (09:20→21:00)
[2016-08-07] MEDS: CLOTRIMAZOLE 1% 15 GM TUBE TP SCH ×2 (09:20→17:49)
[2016-08-07] MEDS: Z GUARD REMEDY 2 OZ OINT TP SCH ×2 (09:21→17:50)
[2016-08-07] MEDS: MEROPENEM 500 MG in IV NS 0.9% 50 ML IV SCH ×2 (09:32→23:34)
[2016-08-07] MEDS: TOBRAMYCIN 80 MG/2 ML VIAL INH SCH ×2 (11:36→21:16)
[2016-08-07] MEDS: GLYTROL 1,000 ML BAG GT PRN (11:43)
[2016-08-07] MEDS ORDERED: CLOT15CR35 TP (11:50)
[2016-08-07] MEDS ORDERED: ALLA266C2 TP (11:50)
[2016-08-07] MEDS ORDERED: TOBR40VI2 XX (11:50)
[2016-08-07] MEDS ORDERED: ASPI81TA2 PO (11:50)
[2016-08-07] MEDS ORDERED: LORA2VIA11 IV (11:50)
[2016-08-07] MEDS ORDERED: MUPI22OI7 (11:50)
[2016-08-07] MEDS ORDERED: Nut.tx.gluc.intoler,Lac-Fr,Soy GT (11:50)
[2016-08-07] MEDS ORDERED: TOPI25TA8 GT (11:50)
[2016-08-07] MEDS ORDERED: ALBUT2 NEB (11:50)
[2016-08-07] MEDS ORDERED: LEVE100S GT (11:50)
[2016-08-07] MEDS ORDERED: PANT40TA2 GT (11:50)
[2016-08-07] MEDS ORDERED: OXCA150T GT (11:50)
[2016-08-07] MEDS ORDERED: PHEN50VI4 IV (11:50)
[2016-08-07] MEDS ORDERED: TOBR40VI2 INH (11:50)
[2016-08-07] MEDS ORDERED: VANC125C11 PO (11:50)
[2016-08-07] MEDS ORDERED: MERO500V IV (11:50)
[2016-08-08] VITALS: BP 120/79
[2016-08-08] MEDS: ALBUTEROL FS 2.5 MG/3 ML VIAL.NEB NEB SCH ×4 (03:34→14:52)
[2016-08-08 04:00] VITALS: BP 102/58
[2016-08-08] MEDS: VANCOMYCIN HCL 125 MG/2.5 ML ORAL.SUSP PO SCH ×2 (05:46→11:07)
[2016-08-08] MEDS: PHENYTOIN SODIUM IV 50 MG/ML VIAL IV SCH ×2 (05:46→12:04)
[2016-08-08] MEDS: BLOOD SUGAR DIAGNOSTIC 1 EACH STRIP IN SCH ×2 (05:57→11:07)
[2016-08-08] MEDS: GLYTROL 1,000 ML BAG GT PRN (06:02)
[2016-08-08 08:00] VITALS: BP 111/65
[2016-08-08] MEDS: TOBRAMYCIN 80 MG/2 ML VIAL INH SCH (08:34)
[2016-08-08] MEDS: MULTIVITAMINS,THERAPEUTIC 1 UDTAB TABLET GT SCH (08:43)
[2016-08-08] MEDS: ACIDOPHILUS/BULGARICUS 1 EACH TAB.CHEW GT SCH ×2 (08:43→16:24)
[2016-08-08] MEDS: ASCORBIC ACID 500 MG TABLET GT SCH (08:43)
[2016-08-08] MEDS: PANTOPRAZOLE 40 MG VIAL IV SCH (08:43)
[2016-08-08] MEDS: LEVETIRACETAM SOL (5 ML) 100 MG/ML UDC GT SCH ×2 (08:43→16:24)
[2016-08-08] MEDS: TOPIRAMATE 25 MG TABLET GT SCH ×2 (08:43→16:24)
[2016-08-08] MEDS: OXCARBAZEPINE 150 MG TABLET GT SCH ×2 (08:43→16:24)
[2016-08-08] MEDS: ASPIRIN 81 MG TAB.CHEW PO SCH (08:43)
[2016-08-08] MEDS: MUPIROCIN OINT 2% 22 GM TUBE SCH (08:44)
[2016-08-08] MEDS: HYDROGEL DRESSING 90 GM TUBE TP SCH (08:44)
[2016-08-08] MEDS: CLOTRIMAZOLE 1% 15 GM TUBE TP SCH ×2 (08:45→16:24)
[2016-08-08] MEDS: Z GUARD REMEDY 2 OZ OINT TP SCH ×2 (08:45→16:24)
[2016-08-08] MEDS: MEROPENEM 500 MG in IV NS 0.9% 50 ML IV SCH (11:08)
[2016-08-08 12:00] VITALS: BP 91/48
[2016-08-08 16:00] VITALS: BP 117/63
== END 2016-08-08 18:01 | DRG 5 ==
LOC: ER 20:36 → ICU 22:25 → TELE1 07-20 20:50 → TELE-TD 07-20 21:19 → TELE1 07-22 07:34
PROVIDERS: ADMIT Internal Medicine; ATTEND Internal Medicine
PROC: 0BH18EZ Insertion of Endotracheal Airway into Trachea, Via Natural or Artificial Opening Endoscopic (ICD-10-PCS; principal; 2016-07-02)
PROC: B548ZZA Ultrasonography of Superior Vena Cava, Guidance (ICD-10-PCS; principal; 2016-07-02)
PROC: 5A1955Z Respiratory Ventilation, Greater than 96 Consecutive Hours (ICD-10-PCS; principal; 2016-07-02)
PROC: 02HV33Z Insertion of Infusion Device into Superior Vena Cava, Percutaneous Approach (ICD-10-PCS; principal; 2016-07-02)
PROC: 30233N1 Transfusion of Nonautologous Red Blood Cells into Peripheral Vein, Percutaneous Approach (ICD-10-PCS; 2016-07-07)
PROC: 0B110F4 Bypass Trachea to Cutaneous with Tracheostomy Device, Open Approach (ICD-10-PCS; 2016-07-20)
PROC: 0B21XFZ Change Tracheostomy Device in Trachea, External Approach (ICD-10-PCS; 2016-07-24)
PROC: B546ZZA Ultrasonography of Right Subclavian Vein, Guidance (ICD-10-PCS; 2016-07-27)
PROC: 05H533Z Insertion of Infusion Device into Right Subclavian Vein, Percutaneous Approach (ICD-10-PCS; 2016-07-27)
PROC: 05HD33Z Insertion of Infusion Device into Right Cephalic Vein, Percutaneous Approach (ICD-10-PCS; 2016-08-03)
PROC: 0D20XUZ Change Feeding Device in Upper Intestinal Tract, External Approach (ICD-10-PCS; 2016-08-04)
DX: A41.9 Sepsis, unspecified organism (principal); I21.4 Non-ST elevation (NSTEMI) myocardial infarction; N17.0 Acute kidney failure with tubular necrosis; R65.21 Severe sepsis with septic shock; E43 Unspecified severe protein-calorie malnutrition; J96.21 Acute and chronic respiratory failure with hypoxia; B37.89 Other sites of candidiasis; G93.1 Anoxic brain damage, not elsewhere classified; J15.1 Pneumonia due to Pseudomonas; J96.01 Acute respiratory failure with hypoxia; I50.31 Acute diastolic (congestive) heart failure; R53.2 Functional quadriplegia; D68.59 Other primary thrombophilia; E87.6 Hypokalemia; Z87.442 Personal history of urinary calculi; N39.0 Urinary tract infection, site not specified; B96.20 Unspecified Escherichia coli [E. coli] as the cause of diseases classified elsewhere; B96.4 Proteus (mirabilis) (morganii) as the cause of diseases classified elsewhere; B96.5 Pseudomonas (aeruginosa) (mallei) (pseudomallei) as the cause of diseases classified elsewhere; D63.8 Anemia in other chronic diseases classified elsewhere; E11.22 Type 2 diabetes mellitus with diabetic chronic kidney disease; E11.65 Type 2 diabetes mellitus with hyperglycemia; E87.0 Hyperosmolality and hypernatremia; E87.2 Acidosis; G40.909 Epilepsy, unspecified, not intractable, without status epilepticus; K21.9 Gastro-esophageal reflux disease without esophagitis; Y95 Nosocomial condition; R13.10 Dysphagia, unspecified; Z74.01 Bed confinement status; N18.9 Chronic kidney disease, unspecified; Z86.73 Personal history of transient ischemic attack (TIA), and cerebral infarction without residual deficits; Z87.440 Personal history of urinary (tract) infections; I13.0 Hypertensive heart and chronic kidney disease with heart failure and stage 1 through stage 4 chronic kidney disease, or unspecified chronic kidney disease; I25.2 Old myocardial infarction; N20.0 Calculus of kidney; E88.09 Other disorders of plasma-protein metabolism, not elsewhere classified; Z68.24 Body mass index [BMI] 24.0-24.9, adult; Z79.4 Long term (current) use of insulin; K94.22 Gastrostomy infection; Y83.9 Surgical procedure, unspecified as the cause of abnormal reaction of the patient, or of later complication, without mention of misadventure at the time of the procedure; Y92.89 Other specified places as the place of occurrence of the external cause; Z22.322 Carrier or suspected carrier of Methicillin resistant Staphylococcus aureus; E86.1 Hypovolemia; N12 Tubulo-interstitial nephritis, not specified as acute or chronic; Z86.61 Personal history of infections of the central nervous system; L89.322 Pressure ulcer of left buttock, stage 2; L89.152 Pressure ulcer of sacral region, stage 2
CPT/HCPCS: 31720; 36415; 36600; 70450-TC; 71010-TC; 74000-TC; 76770-TC; 80048-TC; 80053-TC; 80061-TC; 80076-TC; 80170-TC; 80185-TC; 80202-TC; 81000-TC; 82040-TC; 82272-TC; 82306; 82550-TC; 82553-TC; 82570-TC; 82652; 82728-TC; 82803-TC; 82962-TC; 83540-TC; 83605-TC; 83735-TC; 83880; 83970; 84100-TC; 84132-TC; 84443-TC; 84484-TC; 85025-TC; 85610-TC; 85730-TC; 86850-TC; 86901; 86921-TC; 87040-TC; 87070-TC; 87081-TC; 87086-TC; 87186-TC; 87400; 93307-TC; 93971-TC; 94002-TC; 94003-TC; 94640-TC; 94760-TC; 95819-TC; 99082-TC; A4216; A4606; A4623; A6248; A6253; A6402; A6403; A7526; C9113; J0692; J0885; J1165; J1580; J1644; J1815; J1885; J1940; J1953; J1956; J2020; J2060; J2185; J2248; J2405; J2543; J2704; J2765; J3010; J3260; J3370; J3480; J3490; J7030; J7040; J7050; J7060; J7070; J7120; P9016-BL; P9047; Q9963; Z7610

== ENCOUNTER 2016-08-08 14:33 | Inpatient (IN) | payer MEDICAID ==
[~2016-08-08] VITALS: Ht 170.2 cm; Wt 71.7 kg
[~2016-08-08 14:33] MED LIST: ACET650S26 GT; ACID1TAB12 GT; ALBUT2 NEB; ALLA266C2 TP; ASCO500S2 GT; ASPI-1169 GT; ASPI-1169 PO; CALC-494 GT; CLOT15CR35 TP; DOCU50LI GT; FAMO20TA8 GT; INSU100V3 SQ; LEVE100S GT; LORA2VIA11 IV; MAGN400O6 GT; MERO500V IV; MULT-24 GT; MUPI22OI7; Nut.tx.gluc.intoler,Lac-Fr,Soy GT; OXCA150T GT; PANT40TA2 GT; PHEN50VI4 IV; TOBR40VI2 INH; TOBR40VI2 XX; TOPI25TA GT; VANC125C11 PO
--- NOTE | 2016-08-08 18:35 | NUR ---
Resident admitted to [facility] subacute with the following diagnosis: respiratory failure on ventilator, GT feeding, Seizure disorder, CVA, GERD, pneumonia, UTI, paraplegia under the services of Dr. Montaño. Resident opens her eyes, but not responsive to stimulation. Body check done with Stage 2 sacral decubitus, midline in the R arm patent and redness int he GT site. Noted with scar in the mid back and occipital area of the head. Orders verified with Dr. Montaño all orders to continue from acute hospital and gave stop date for ATB x 10 days. Spoke with resident's sister Beckie and notified of patient's admission to subacute.
[2016-08-08] MEDS ORDERED: HYDROGEN PEROXIDE 480 ML BOTTLE TP PRN (19:00)
[2016-08-08 19:15] VITALS: BP 121/62
[2016-08-08 19:54] VITALS: BP 115/69
[2016-08-08] MEDS: TOBRAMYCIN 80 MG/2 ML VIAL INH SCH (21:00)
[2016-08-08] MEDS ORDERED: TUBERCULIN,PURIF.PROT.DERIV. 5 TU/0.1 ML VIAL ID SCH (21:00)
[2016-08-08] MEDS ORDERED: LORAZEPAM INJ 2 MG/ML VIAL IVP PRN (21:30)
[2016-08-08] MEDS: PHENYTOIN SUSP UDC 100 MG/4 ML UDC GT SCH (21:58)
[2016-08-08] MEDS ORDERED: DEXTROSE 50%-WATER 50 ML DISP.SYRIN IV PRN (22:00)
[2016-08-08] MEDS: ALBUTEROL FS 2.5 MG/3 ML VIAL.NEB NEB SCH (22:51)
[2016-08-08] MEDS: VANCOMYCIN HCL 125 MG/2.5 ML ORAL.SUSP GT SCH (23:56)
[2016-08-08] MEDS: BLOOD SUGAR DIAGNOSTIC 1 EACH STRIP IN SCH (23:56)
[2016-08-08] MEDS: INSULIN REGULAR, HUMAN 100 UNIT/ML 3 ML VIAL SQ PRN (23:57)
[2016-08-09 00:05] VITALS: BP 117/77
[2016-08-09] MEDS: ALBUTEROL FS 2.5 MG/3 ML VIAL.NEB NEB SCH ×6 (02:58→23:15)
[2016-08-09 04:10] VITALS: BP 117/64
[2016-08-09] MEDS: PHENYTOIN SUSP UDC 100 MG/4 ML UDC GT SCH ×3 (05:00→21:17)
--- NOTE | 2016-08-09 05:46 | NUR ---
Pt remains stable during the night,no respiratory distress,on mechanical ventilator.Skin assessment done and treatment initiated as ordered.Feeding tolerated,no nausea and vomiting.HOB elevated.Repositioned q 2 hours and PRN. All needs attended.Will continue to monitor.
[2016-08-09] MEDS ORDERED: PANTOPRAZOLE 40 MG/PACK PACK GT SCH (06:00)
[2016-08-09] MEDS: BLOOD SUGAR DIAGNOSTIC 1 EACH STRIP IN SCH ×3 (06:15→17:23)
[2016-08-09] MEDS: VANCOMYCIN HCL 125 MG/2.5 ML ORAL.SUSP GT SCH ×3 (06:15→17:23)
[2016-08-09] MEDS: INSULIN REGULAR, HUMAN 100 UNIT/ML 3 ML VIAL SQ PRN (06:16)
[2016-08-09 08:00] VITALS: BP 127/71
[2016-08-09] MEDS: TOBRAMYCIN 80 MG/2 ML VIAL INH SCH ×2 (08:23→20:12)
[2016-08-09] MEDS: ZINC OXIDE 30 GM TUBE TP SCH ×2 (09:00→21:18)
[2016-08-09] MEDS: MUPIROCIN OINT 2% 22 GM TUBE SCH ×2 (09:00→21:17)
[2016-08-09] MEDS: ASPIRIN 81 MG TAB.CHEW GT SCH (09:00)
[2016-08-09] MEDS: Z GUARD REMEDY 4 OZ OINT TP SCH ×3 (09:00→21:18)
[2016-08-09] MEDS: TOPIRAMATE 100 MG TABLET GT SCH ×2 (09:00→17:23)
[2016-08-09] MEDS: OXCARBAZEPINE 150 MG TABLET PO SCH ×2 (09:00→17:24)
[2016-08-09] MEDS: MULTIVITAMINS,THERAGRAN 1 UDTAB TABLET GT SCH (09:00)
[2016-08-09] MEDS: ACIDOPHILUS/BULGARICUS 1 EACH TAB.CHEW GT SCH ×2 (09:00→17:23)
[2016-08-09] MEDS ORDERED: FAMOTIDINE (20 MG) 20 MG TABLET GT SCH (09:00)
[2016-08-09] MEDS: ASCORBIC ACID 500 MG TABLET GT SCH (09:00)
[2016-08-09] MEDS: CALCIUM CARBONATE 500 MG TAB.CHEW GT SCH ×2 (09:00→17:23)
[2016-08-09] MEDS: HYDROGEL DRESSING 90 GM TUBE TP SCH ×2 (09:00→21:17)
[2016-08-09] MEDS: HYDROGEN PEROXIDE 480 ML BOTTLE TP SCH ×2 (09:00→21:17)
[2016-08-09] MEDS: LEVETIRACETAM SOL (5 ML) 100 MG/ML UDC GT SCH ×2 (09:00→21:17)
[2016-08-09 12:00] VITALS: BP 109/59
--- NOTE | 2016-08-09 12:35 | NUR ---
According to [facility] pharmacy, Bactroban is not covered by patient's insurance if the indication is not what it is intended for. Clarified order to reflect Bactroban nasal ointment. Resident continue on Merren 500 mg. IV, 1200 dose given. Midline in the R upper arm, patent no s/s of infiltration. No adverse reaction noted from ATB.
[2016-08-09] MEDS ORDERED: MEROPENEM 500 MG in IV NS 0.9% 50 ML IV SCH ×5 (13:12→14:17)
[2016-08-09 16:00] VITALS: BP 115/65
--- NOTE | 2016-08-09 16:15 | NUR ---
Received a communication from [facility] pharmacy that Bactroban will need a prior authorization before they can sent. It will take up to 3 days to get an answer. [facility] pharmacy notified, will send medication.
[2016-08-09 19:59] VITALS: BP 110/68
[2016-08-09] MEDS: CLOTRIMAZOLE 1% CREAM 24 GM TUBE TP SCH (21:17)
[2016-08-09] MEDS: VITAMINS A AND D 56.7 GM TUBE TP SCH (21:18)
[2016-08-09] MEDS: MEROPENEM 500 MG in IV NS 0.9% 50 ML IV SCH (23:00)
[2016-08-10] MEDS: VANCOMYCIN HCL 125 MG/2.5 ML ORAL.SUSP GT SCH ×5 (00:11→23:31)
[2016-08-10] MEDS: INSULIN REGULAR, HUMAN 100 UNIT/ML 3 ML VIAL SQ PRN ×2 (00:11→05:47)
[2016-08-10] MEDS: BLOOD SUGAR DIAGNOSTIC 1 EACH STRIP IN SCH ×5 (00:11→23:48)
[2016-08-10] MEDS: ALBUTEROL FS 2.5 MG/3 ML VIAL.NEB NEB SCH ×6 (03:18→22:58)
[2016-08-10] MEDS: PHENYTOIN SUSP UDC 100 MG/4 ML UDC GT SCH ×3 (05:47→20:13)
[2016-08-10] MEDS: DEXILANT 30 MG GT SCH (05:47)
[2016-08-10] MEDS: GLYTROL 1,000 ML BAG GT PRN (06:16)
[2016-08-10 08:31] VITALS: BP 112/62
[2016-08-10] MEDS: TOBRAMYCIN 80 MG/2 ML VIAL INH SCH ×2 (08:41→21:43)
[2016-08-10] MEDS: CLOTRIMAZOLE 1% CREAM 24 GM TUBE TP SCH ×2 (09:33→20:21)
[2016-08-10] MEDS: LEVETIRACETAM SOL (5 ML) 100 MG/ML UDC GT SCH ×2 (09:33→20:13)
[2016-08-10] MEDS: ACIDOPHILUS/BULGARICUS 1 EACH TAB.CHEW GT SCH ×2 (09:33→17:15)
[2016-08-10] MEDS: HYDROGEL DRESSING 90 GM TUBE TP SCH ×2 (09:33→20:21)
[2016-08-10] MEDS: HYDROGEN PEROXIDE 480 ML BOTTLE TP SCH ×2 (09:33→20:21)
[2016-08-10] MEDS: TOPIRAMATE 100 MG TABLET GT SCH ×2 (09:33→17:15)
[2016-08-10] MEDS: CALCIUM CARBONATE 500 MG TAB.CHEW GT SCH ×2 (09:33→17:15)
[2016-08-10] MEDS: OXCARBAZEPINE 150 MG TABLET PO SCH ×2 (09:33→17:15)
[2016-08-10] MEDS: ASPIRIN 81 MG TAB.CHEW GT SCH (09:33)
[2016-08-10] MEDS: MUPIROCIN OINT 2% 22 GM TUBE SCH ×2 (09:33→20:21)
[2016-08-10] MEDS: MULTIVITAMINS,THERAGRAN 1 UDTAB TABLET GT SCH (09:33)
[2016-08-10] MEDS: ASCORBIC ACID 500 MG TABLET GT SCH (09:33)
[2016-08-10] MEDS: VITAMINS A AND D 56.7 GM TUBE TP SCH ×2 (09:34→20:22)
[2016-08-10] MEDS: ZINC OXIDE 30 GM TUBE TP SCH ×2 (09:34→20:22)
[2016-08-10] MEDS: Z GUARD REMEDY 4 OZ OINT TP SCH ×4 (09:34→20:21)
[2016-08-10] MEDS: MEROPENEM 500 MG in IV NS 0.9% 50 ML IV SCH ×2 (10:32→23:31)
[2016-08-10 19:54] VITALS: BP 128/67
[2016-08-11] MEDS: ALBUTEROL FS 2.5 MG/3 ML VIAL.NEB NEB SCH ×6 (02:37→23:30)
[2016-08-11] MEDS: DEXILANT 30 MG GT SCH (05:49)
[2016-08-11] MEDS: PHENYTOIN SUSP UDC 100 MG/4 ML UDC GT SCH ×3 (05:49→20:22)
[2016-08-11] MEDS: VANCOMYCIN HCL 125 MG/2.5 ML ORAL.SUSP GT SCH ×3 (05:51→18:29)
[2016-08-11] MEDS: BLOOD SUGAR DIAGNOSTIC 1 EACH STRIP IN SCH ×3 (05:51→18:29)
[2016-08-11 07:32] LABS: CALCIUM, SERUM 9.7 mg/dL (8.5-10.1); CREATININE 2.2 mg/dL (0.6-1.3); MAGNESIUM 2.2 mg/dL (1.8-2.4); PHOSPHORUS 4.8 mg/dL (2.5-4.9); POTASSIUM 4.4 mmol/L (3.5-5.1)
[2016-08-11 07:34] LABS: BASOPHILS % (AUTO) 0.4 % (0.0-2.0); EOSINOPHILS # (AUTO) 1.1 /CMM (0.0-0.7); EOSINOPHILS % (AUTO) 9.8 % (0.0-6.0); HEMATOCRIT 28 % (33-45); HEMOGLOBIN 9.1 g/dL (11.5-14.8); LYMPHOCYTES # (AUTO) 2.2 /CMM (0.8-4.8); LYMPHOCYTES % (AUTO) 18.7 % (20.0-44.0); MEAN CORPUSCULAR HEMOGLOBIN 29 PG (26.0-33.0); MEAN CORPUSCULAR HGB CONC 32 g/dl (31.0-36.0); MEAN CORPUSCULAR VOLUME 90 fL (82-100); MONOCYTES % (AUTO) 8.2 % (2.0-12.0); NEUTROPHILS # (AUTO) 7.3 /CMM (1.8-8.9); NEUTROPHILS % (AUTO) 62.9 % (43.0-81.0); PLATELET COUNT (AUTO) 410 /CMM (150-450); RDW COEFFICIENT OF VARIATION 20.4 (11.5-15.0); RED BLOOD CELL COUNT(AUTO) 3.13 MIL/uL (4.0-5.2); WHITE BLOOD COUNT (AUTO) 11.6 K/uL (4.3-11.0)
[2016-08-11 08:00] VITALS: BP 107/41
[2016-08-11] MEDS: ASPIRIN 81 MG TAB.CHEW GT SCH (08:44)
[2016-08-11] MEDS: ASCORBIC ACID 500 MG TABLET GT SCH (08:44)
[2016-08-11] MEDS: ACIDOPHILUS/BULGARICUS 1 EACH TAB.CHEW GT SCH ×2 (08:44→17:00)
[2016-08-11] MEDS: LEVETIRACETAM SOL (5 ML) 100 MG/ML UDC GT SCH ×2 (08:44→20:22)
[2016-08-11] MEDS: TOPIRAMATE 100 MG TABLET GT SCH ×2 (08:44→17:00)
[2016-08-11] MEDS: MULTIVITAMINS,THERAGRAN 1 UDTAB TABLET GT SCH (08:44)
[2016-08-11] MEDS: CALCIUM CARBONATE 500 MG TAB.CHEW GT SCH ×2 (08:44→17:00)
[2016-08-11] MEDS: OXCARBAZEPINE 150 MG TABLET PO SCH ×2 (08:44→17:00)
[2016-08-11 08:45] LABS: EOSINOPHILS % (MANUAL) 5 % (0-4); LYMPHOCYTES % (MANUAL) 12 % (16-48); MONOCYTES % (MANUAL) 13 % (0-11.0); NEUTROPHILS % (MANUAL) 70 (42-76)
[2016-08-11] MEDS: TOBRAMYCIN 80 MG/2 ML VIAL INH SCH ×2 (09:10→20:52)
[2016-08-11] MEDS: MEROPENEM 500 MG in IV NS 0.9% 50 ML IV SCH ×2 (10:22→23:00)
--- NOTE | 2016-08-11 12:09 | NUR ---
Received order from Dr. Hathaway to give Tobramycin sulfate inhalation for a total of 10 days.
[2016-08-11] MEDS: INSULIN REGULAR, HUMAN 100 UNIT/ML 3 ML VIAL SQ PRN ×2 (12:29→18:29)
[2016-08-11] MEDS: HYDROGEN PEROXIDE 480 ML BOTTLE TP SCH ×2 (12:30→20:23)
[2016-08-11] MEDS: VITAMINS A AND D 56.7 GM TUBE TP SCH ×2 (12:30→20:24)
[2016-08-11] MEDS: Z GUARD REMEDY 4 OZ OINT TP SCH ×4 (12:30→20:24)
[2016-08-11] MEDS: MUPIROCIN OINT 2% 22 GM TUBE SCH ×2 (12:30→20:23)
[2016-08-11] MEDS: CLOTRIMAZOLE 1% CREAM 24 GM TUBE TP SCH ×2 (12:30→20:23)
[2016-08-11] MEDS: HYDROGEL DRESSING 90 GM TUBE TP SCH ×2 (12:30→20:23)
[2016-08-11] MEDS: ZINC OXIDE 30 GM TUBE TP SCH ×2 (12:30→20:24)
--- NOTE | 2016-08-11 14:00 | NUR ---
STEPHEN met with resident's sister to complete intake paperwork. Sister wishes to make resident full code with all surgical procedures requiring advanced authorization by her. According to sister, she is the conservator for the resident and will bring in the paperwork the next time she comes to the hospital. All admission paperwork was completed with resident's sister.
--- NOTE | 2016-08-11 17:37 | NUR ---
Nurse reported that blood sugar is 60. Charge nurse prepared D50 and looked at pt's blood glucose level in [facility] before administering D50. Blood glucose is 93. Asked nurse to recheck pt's blood glucose and it showed 96. D50 was not given.
[2016-08-11 20:00] VITALS: BP 107/63
[2016-08-12] MEDS: VANCOMYCIN HCL 125 MG/2.5 ML ORAL.SUSP GT SCH ×4 (00:12→17:13)
[2016-08-12] MEDS: BLOOD SUGAR DIAGNOSTIC 1 EACH STRIP IN SCH ×4 (00:12→17:37)
[2016-08-12] MEDS: ALBUTEROL FS 2.5 MG/3 ML VIAL.NEB NEB SCH ×6 (03:30→23:30)
[2016-08-12] MEDS: DEXILANT 30 MG GT SCH (05:02)
[2016-08-12] MEDS: PHENYTOIN SUSP UDC 100 MG/4 ML UDC GT SCH ×3 (05:02→20:25)
[2016-08-12 07:45] VITALS: BP 116/64
--- NOTE | 2016-08-12 08:30 | NUR ---
Seen and examined by wound nurse with no new order given to continue current treatment.
--- NOTE | 2016-08-12 08:38 | NUR ---
Received new order from Dr. Montaño for OT evaluation order noted and carried out.
[2016-08-12] MEDS: VITAMINS A AND D 56.7 GM TUBE TP SCH ×2 (09:00→20:26)
[2016-08-12] MEDS: HYDROGEL DRESSING 90 GM TUBE TP SCH ×2 (09:00→20:25)
[2016-08-12] MEDS: Z GUARD REMEDY 4 OZ OINT TP SCH ×4 (09:00→20:25)
[2016-08-12] MEDS: TOBRAMYCIN 80 MG/2 ML VIAL INH SCH ×2 (09:00→20:16)
[2016-08-12] MEDS: CLOTRIMAZOLE 1% CREAM 24 GM TUBE TP SCH ×2 (09:00→20:25)
[2016-08-12] MEDS: ZINC OXIDE 30 GM TUBE TP SCH ×2 (09:00→20:26)
[2016-08-12] MEDS: HYDROGEN PEROXIDE 480 ML BOTTLE TP SCH ×2 (09:00→20:25)
--- NOTE | 2016-08-12 09:30 | NUR ---
Seen by Dr Felix with no new order.
[2016-08-12] MEDS: OXCARBAZEPINE 150 MG TABLET PO SCH ×2 (09:48→16:27)
[2016-08-12] MEDS: LEVETIRACETAM SOL (5 ML) 100 MG/ML UDC GT SCH ×2 (09:48→20:25)
[2016-08-12] MEDS: ASCORBIC ACID 500 MG TABLET GT SCH (09:48)
[2016-08-12] MEDS: MUPIROCIN OINT 2% 22 GM TUBE SCH ×2 (09:48→20:25)
[2016-08-12] MEDS: ACIDOPHILUS/BULGARICUS 1 EACH TAB.CHEW GT SCH ×2 (09:48→16:27)
[2016-08-12] MEDS: CALCIUM CARBONATE 500 MG TAB.CHEW GT SCH ×2 (09:48→16:27)
[2016-08-12] MEDS: MULTI-DELYN GT SCH (09:48)
[2016-08-12] MEDS: TOPIRAMATE 100 MG TABLET GT SCH ×2 (09:48→16:27)
[2016-08-12] MEDS: ASPIRIN 81 MG TAB.CHEW GT SCH (09:48)
--- NOTE | 2016-08-12 09:48 | NUR ---
Spoke with resident's sister Beckie Chu over telephone and informed her that because resident is non-verbal, completing an advanced directive is not an option as resident cannot make her needs known. Reminded her to bring conservatorship paperwork the next time she comes to the hospital. Sister has decided to make resident full code with all surgical procedures requiring advanced authorization by her. SW stated she can make a copy of the code status paperwork once doctor signs off on it.
--- NOTE | 2016-08-12 10:09 | NUR ---
WOUND CARE CONSULT PATIENT SEEN AND SKIN INTEGRITY ASSESSMENT DONE. PATIENT PRESENTS WITH HEALING STAGE 2 PRESSURE ULCER TO THE SACRAL REGION THAT EXTENDS TO THE RIGHT AND LEFT BUTTOCK AREAS WHICH ARE NOTED TO BE HEALED AT THIS TIME. THE ENTIRE AREA MEASURES 3.5CM X 5.5CM X 0.1CM WITH THE OPEN AREA TO THE SACRAL BEING 1CM X 1CM X 0.1CM WITH SURROUNDING AREAS OF HYPOPIGMENTATION NOTED ALL PRESENT ON ADMIT. THERE IS SCANT AMOUNT OF SEROUS DRNG AND THE COLOR IS PINK/RED. RECOMMEND CONTINUE WITH CURRENT TREATMENT ORDERED BY MD. CONTINUE WITH USE OF Z GUARD FOR SKIN/MOISTURE MANAGEMENT AND CONTINUE TURNING SCHED Q 2 HOURS. CONTINUE BILATERAL HEEL FLOATING AND CONTINUE WITH USE OF 1ST STEP LOW AIRLOSS MATTRESS FOR TREATMENT AND SKIN MANAGEMENT. PATIENT ALSO PRESENT WITH BILATERAL FOOT DRY SKIN FOR WHICH THERE IS VIT A+D OINTMENT ORDERED AND BILATERAL FEET ARE MUCH IMPROVED AT THIS TIME. CONTINUE ALL SKIN MANAGEMENT AND PREVENTION MEASURES PER CURRENT PLAN OF CARE. ALL DISCUSSED WITH SERVICE DISMANTLER AND BAKER PAINT.
[2016-08-12] MEDS: MEROPENEM 500 MG in IV NS 0.9% 50 ML IV SCH ×2 (11:55→23:00)
[2016-08-12] MEDS: INSULIN REGULAR, HUMAN 100 UNIT/ML 3 ML VIAL SQ PRN ×2 (12:58→17:37)
[2016-08-13] MEDS: BLOOD SUGAR DIAGNOSTIC 1 EACH STRIP IN SCH ×5 (00:03→23:48)
[2016-08-13] MEDS: VANCOMYCIN HCL 125 MG/2.5 ML ORAL.SUSP GT SCH ×5 (00:03→23:48)
[2016-08-13] MEDS: ALBUTEROL FS 2.5 MG/3 ML VIAL.NEB NEB SCH ×6 (03:30→23:38)
[2016-08-13] MEDS: PHENYTOIN SUSP UDC 100 MG/4 ML UDC GT SCH ×3 (05:45→21:29)
[2016-08-13] MEDS: DEXILANT 30 MG GT SCH (05:45)
[2016-08-13 07:56] VITALS: BP 118/71
--- NOTE | 2016-08-13 07:58 | NUR ---
RT NOTE PT PLACED ON SIMV RR 4 PS 12 +5 PER MD ORDER. ALARMS SET PER PROTOCOL AND AUDIBLE. Addendum: 08/13/16 at 0800 by MAXI BRADY RT Amended: Links added.
[2016-08-13] MEDS: TOBRAMYCIN 80 MG/2 ML VIAL INH SCH ×2 (08:40→20:22)
[2016-08-13] MEDS: MULTI-DELYN GT SCH (09:28)
[2016-08-13] MEDS: ACIDOPHILUS/BULGARICUS 1 EACH TAB.CHEW GT SCH ×2 (09:28→17:29)
[2016-08-13] MEDS: LEVETIRACETAM SOL (5 ML) 100 MG/ML UDC GT SCH ×2 (09:28→21:29)
[2016-08-13] MEDS: ASPIRIN 81 MG TAB.CHEW GT SCH (09:28)
[2016-08-13] MEDS: TOPIRAMATE 100 MG TABLET GT SCH ×2 (09:29→17:29)
[2016-08-13] MEDS: ZINC OXIDE 30 GM TUBE TP SCH ×2 (09:29→21:30)
[2016-08-13] MEDS: CALCIUM CARBONATE 500 MG TAB.CHEW GT SCH ×2 (09:29→17:29)
[2016-08-13] MEDS: HYDROGEN PEROXIDE 480 ML BOTTLE TP SCH ×2 (09:29→21:29)
[2016-08-13] MEDS: HYDROGEL DRESSING 90 GM TUBE TP SCH ×2 (09:29→21:29)
[2016-08-13] MEDS: ASCORBIC ACID 500 MG TABLET GT SCH (09:29)
[2016-08-13] MEDS: CLOTRIMAZOLE 1% CREAM 24 GM TUBE TP SCH ×2 (09:29→21:29)
[2016-08-13] MEDS: Z GUARD REMEDY 4 OZ OINT TP SCH ×4 (09:29→21:29)
[2016-08-13] MEDS: OXCARBAZEPINE 150 MG TABLET PO SCH ×2 (09:29→17:29)
[2016-08-13] MEDS: VITAMINS A AND D 56.7 GM TUBE TP SCH ×2 (09:29→21:30)
[2016-08-13] MEDS: MUPIROCIN OINT 2% 22 GM TUBE SCH ×2 (09:29→21:29)
[2016-08-13 09:40] LABS: ABG BASE EXCESS -5.8 mmol/L; ABG OXYGEN SATURATION 98.8 % (92.0-98.5); ABG PO2 198.4 mmHg (75.0-100.0); COHb 1.3 % (0.5-1.5); MetHb 0.8 % (0.0-1.5); O2Hb 96.7 % (94.0-97.0); PEEP,BG 5 cm H2O; SITE, ABG Right Radial; VENT MODE, BG SIMV 4 +5 PS 12; VT, ABG 600 mL
[2016-08-13] MEDS: MEROPENEM 500 MG in IV NS 0.9% 50 ML IV SCH ×2 (10:02→23:02)
[2016-08-13 19:51] VITALS: BP 99/60
[2016-08-13] MEDS: INSULIN REGULAR, HUMAN 100 UNIT/ML 3 ML VIAL SQ PRN (23:48)
[2016-08-13] MEDS: GLYTROL 1,000 ML BAG GT PRN (23:51)
[2016-08-14] MEDS: ALBUTEROL FS 2.5 MG/3 ML VIAL.NEB NEB SCH ×6 (03:52→23:30)
[2016-08-14] MEDS: PHENYTOIN SUSP UDC 100 MG/4 ML UDC GT SCH ×3 (05:59→21:28)
[2016-08-14] MEDS: DEXILANT 30 MG GT SCH (05:59)
[2016-08-14] MEDS: INSULIN REGULAR, HUMAN 100 UNIT/ML 3 ML VIAL SQ PRN (06:00)
[2016-08-14] MEDS: VANCOMYCIN HCL 125 MG/2.5 ML ORAL.SUSP GT SCH ×3 (06:00→17:25)
[2016-08-14] MEDS: BLOOD SUGAR DIAGNOSTIC 1 EACH STRIP IN SCH ×3 (06:00→17:25)
--- NOTE | 2016-08-14 06:57 | NUR ---
PT TOLERATED SIMV MODE IN THE VENTILATOR,NO RESPIRATORY DISTRESS NOTED.
[2016-08-14 07:51] VITALS: BP 99/51
[2016-08-14] MEDS: CALCIUM CARBONATE 500 MG TAB.CHEW GT SCH ×2 (08:21→16:19)
[2016-08-14] MEDS: OXCARBAZEPINE 150 MG TABLET PO SCH ×2 (08:21→16:17)
[2016-08-14] MEDS: ASCORBIC ACID 500 MG TABLET GT SCH (08:22)
[2016-08-14] MEDS: ACIDOPHILUS/BULGARICUS 1 EACH TAB.CHEW GT SCH ×2 (08:23→16:19)
[2016-08-14] MEDS: ASPIRIN 81 MG TAB.CHEW GT SCH (08:24)
[2016-08-14] MEDS: LEVETIRACETAM SOL (5 ML) 100 MG/ML UDC GT SCH ×2 (08:26→21:28)
[2016-08-14] MEDS: MULTI-DELYN GT SCH (08:28)
[2016-08-14] MEDS: TOPIRAMATE 100 MG TABLET GT SCH ×2 (08:29→16:18)
[2016-08-14] MEDS: HYDROGEL DRESSING 90 GM TUBE TP SCH ×2 (08:30→21:28)
[2016-08-14] MEDS: MUPIROCIN OINT 2% 22 GM TUBE SCH (08:30)
[2016-08-14] MEDS: HYDROGEN PEROXIDE 480 ML BOTTLE TP SCH ×2 (08:34→21:28)
[2016-08-14] MEDS: CLOTRIMAZOLE 1% CREAM 24 GM TUBE TP SCH ×2 (08:34→21:28)
[2016-08-14] MEDS: Z GUARD REMEDY 4 OZ OINT TP SCH ×4 (08:34→21:28)
[2016-08-14] MEDS: VITAMINS A AND D 56.7 GM TUBE TP SCH ×2 (08:39→21:28)
[2016-08-14] MEDS: ZINC OXIDE 30 GM TUBE TP SCH ×2 (08:42→21:28)
[2016-08-14] MEDS: TOBRAMYCIN 80 MG/2 ML VIAL INH SCH ×2 (09:03→21:32)
--- NOTE | 2016-08-14 09:29 | NUR ---
Received order from Dr. Montaño to do a neurology consult per pt's sister's request. Spoke with pt's sister Beckie. She said she wants to know pt's neurological status, why the pt does not look at her or talk to her anymore. She said she understands the pt has a trach and maybe that is why she is unable to talk, but she should at least smile at her when she sees her. She also said that pt used to watch tv/cartoons and now the pt does not do that anymore. She said it all started when the pt was transferred to this hospital. She said that day pt was transferred, she received a call from Lelo Suazo informing her that the pt had a seizure in the morning and was found unresponsive at night. Left message for Dr. Lance.
[2016-08-14] MEDS: MEROPENEM 500 MG in IV NS 0.9% 50 ML IV SCH ×2 (11:15→23:02)
--- NOTE | 2016-08-14 15:37 | NUR ---
Resident's sister Beckie came today and provided conservator paperwork to SW. Sister is assigned conservator for resident and able to make medical decisions on her behalf.
--- NOTE | 2016-08-14 15:45 | NUR ---
Seen by NAN Vargas. Pt's sister at bedside and pt expressed that she is happy the pt is smiling at her. Pt negative for MRSA nares from 08/07/16 culture result. Notified NAN Vargas. Received order to DC Bactroban ointment and do follow-up cultures to DC isolation. Addendum: 08/14/16 at 1554 by SARITA GOMEZ RN Jasmeet Butts.
--- NOTE | 2016-08-14 17:56 | NUR ---
RN NOTES PT RESTING COMFORTABLY. NOT IN ANY DISTRESS. VENT DEPENDENT AND SETTINGS ORDERED. BREATHING EVEN AND UNLABORED. NO SIGN OF PAIN OR FACIAL GRIMACING. LAKISHA MIDLINE IN PLACE, FLUSHES WELL SITE CLEAR. NO EPISODES OF OF SEIZURES. GTF ONGOING GLYTROL 60 ML/HR, TOLERATING WELL, O RESIDUAL. AM/PM CARE RENDERED AND PRN. PRESCRIBED WOUND TREATMENT DONE. TURNED AND REPOSITIONED. ALL DUE MEDS ADMINISTERED DURING THE SHIFT. BS CHECK DONE ACCORDINGLY. ALL NEEDS MET. SAFETY MEASURES, SEIZURE PRECATUIONS. SUCTION INTERMITTENTLY. WILL ENDORSE TO NEXT SHIFT FOR WHIT.
[2016-08-14 19:46] VITALS: BP 112/68
[2016-08-14] MEDS ORDERED: GLYTROL 1,000 ML BAG GT PRN (20:05)
[2016-08-15] MEDS: INSULIN REGULAR, HUMAN 100 UNIT/ML 3 ML VIAL SQ PRN ×4 (00:27→17:43)
[2016-08-15] MEDS: VANCOMYCIN HCL 125 MG/2.5 ML ORAL.SUSP GT SCH ×4 (00:27→17:41)
[2016-08-15] MEDS: BLOOD SUGAR DIAGNOSTIC 1 EACH STRIP IN SCH ×4 (00:27→17:41)
[2016-08-15] MEDS: GLYTROL 1,000 ML BAG GT PRN (00:40)
[2016-08-15] MEDS: DEXILANT 30 MG GT SCH (05:48)
[2016-08-15] MEDS: PHENYTOIN SUSP UDC 100 MG/4 ML UDC GT SCH ×3 (05:48→21:27)
[2016-08-15] MEDS: ALBUTEROL FS 2.5 MG/3 ML VIAL.NEB NEB SCH ×5 (07:30→22:33)
--- NOTE | 2016-08-15 07:31 | NUR ---
PT REC'D ON VENT VIA TRACH TUBE BO FELICIANO 8. SETTINGS CHARTED. AMBU BAG BEDSIDE, ALARMS SET AND AUDIBLE, SUCTIONED THICK CLEAR SECRETIONS, VENT PLUGGED IN RED OUTLET Addendum: 08/15/16 at 1531 by LADAN WICK RT Amended: Links added.
[2016-08-15 07:47] VITALS: BP 128/69
[2016-08-15] MEDS: TOBRAMYCIN 80 MG/2 ML VIAL INH SCH ×2 (08:04→20:48)
[2016-08-15] MEDS: CALCIUM CARBONATE 500 MG TAB.CHEW GT SCH ×2 (08:46→17:41)
[2016-08-15] MEDS: ASCORBIC ACID 500 MG TABLET GT SCH (08:46)
[2016-08-15] MEDS: ACIDOPHILUS/BULGARICUS 1 EACH TAB.CHEW GT SCH ×2 (08:46→17:41)
[2016-08-15] MEDS: LEVETIRACETAM SOL (5 ML) 100 MG/ML UDC GT SCH ×2 (08:46→21:27)
[2016-08-15] MEDS: OXCARBAZEPINE 150 MG TABLET PO SCH ×2 (08:46→17:41)
[2016-08-15] MEDS: TOPIRAMATE 100 MG TABLET GT SCH ×2 (08:46→17:41)
[2016-08-15] MEDS: MULTI-DELYN GT SCH (08:46)
[2016-08-15] MEDS: ASPIRIN 81 MG TAB.CHEW GT SCH (08:46)
[2016-08-15] MEDS: VITAMINS A AND D 56.7 GM TUBE TP SCH ×2 (09:00→21:28)
[2016-08-15] MEDS: Z GUARD REMEDY 4 OZ OINT TP SCH ×4 (09:00→21:28)
[2016-08-15] MEDS: ZINC OXIDE 30 GM TUBE TP SCH ×2 (09:00→21:28)
[2016-08-15] MEDS: HYDROGEL DRESSING 90 GM TUBE TP SCH ×2 (09:00→21:27)
[2016-08-15] MEDS: HYDROGEN PEROXIDE 480 ML BOTTLE TP SCH ×2 (09:00→21:27)
[2016-08-15] MEDS: CLOTRIMAZOLE 1% CREAM 24 GM TUBE TP SCH ×2 (09:00→21:27)
--- NOTE | 2016-08-15 09:30 | NUR ---
Placed a call to Dr. Lance's office to follow-up neurology consult. Vandana from her office said that MD is on vacation until , however she gave a contact information for the doctor recreational specialist, Dr. Saini. Left a message for at through Jr.
--- NOTE | 2016-08-15 09:50 | NUR ---
Received a call from Dr. Saini, neurologist indicating that he will see the patient today after 6 PM.
[2016-08-15] MEDS: MEROPENEM 500 MG in IV NS 0.9% 50 ML IV SCH ×2 (11:00→23:08)
--- NOTE | 2016-08-15 11:30 | NUR ---
Clarified ventilator setting with Dr. Felix, he stated that patient should be on AC setting since she did not tolerate SIMV mode yesterday. He adjusted TV to 550 from 600. Resident stable at this time, no SOB and distress.
--- NOTE | 2016-08-15 13:04 | NUR ---
PT TIDAL VOLUME CHANGED FROM [address] FLORES ORDER Addendum: 08/15/16 at 1305 by LADAN WICK RT Amended: Links added.
--- NOTE | 2016-08-15 18:05 | NUR ---
Seen and examined by Dr. Montaño, advised him that neurologist Dr. Saini, will be in today. Asked MD if we can have a PRN Ativan for seizure, he said that he discontinue the order upon admission for a reason, he will review the chart and will get back to staff. It was also mentioned that tube feeding is held two hours prior and 2 hours after administration of Dilantin, Dr. Montaño said it is OK to give Dilantin once a day.
[2016-08-15 19:41] VITALS: BP 112/69
--- NOTE | 2016-08-15 21:51 | NUR ---
PT SEEN AND EXAMINED BY DR. STALLINGS NEUROLOGIST WITH NEW ORDERS FOR LABS TOMORROW AND WAKE DROWSY EEG ON THURSDAY.CHANGE DILANTIN TO 300MG Q HS. SPOKE TO SISTER AND AWARE OF ALL ORDERS.
[2016-08-16] MEDS: VANCOMYCIN HCL 125 MG/2.5 ML ORAL.SUSP GT SCH ×5 (00:18→23:49)
[2016-08-16] MEDS: BLOOD SUGAR DIAGNOSTIC 1 EACH STRIP IN SCH ×5 (00:18→23:49)
[2016-08-16] MEDS: INSULIN REGULAR, HUMAN 100 UNIT/ML 3 ML VIAL SQ PRN ×4 (00:18→17:10)
[2016-08-16] MEDS: GLYTROL 1,000 ML BAG GT PRN ×2 (01:27→18:07)
[2016-08-16] MEDS: ALBUTEROL FS 2.5 MG/3 ML VIAL.NEB NEB SCH ×6 (02:45→23:30)
[2016-08-16] MEDS: DEXILANT 30 MG GT SCH (06:19)
[2016-08-16 07:27] VITALS: BP 124/66
[2016-08-16 07:47] LABS: CALCIUM, SERUM 9.5 mg/dL (8.5-10.1); POTASSIUM 3.9 mmol/L (3.5-5.1)
[2016-08-16 07:55] LABS: BASOPHILS % (AUTO) 0.5 % (0.0-2.0); EOSINOPHILS # (AUTO) 0.8 /CMM (0.0-0.7); EOSINOPHILS % (AUTO) 9.1 % (0.0-6.0); HEMATOCRIT 26 % (33-45); HEMOGLOBIN 8.8 g/dL (11.5-14.8); LYMPHOCYTES # (AUTO) 2.1 /CMM (0.8-4.8); LYMPHOCYTES % (AUTO) 24.1 % (20.0-44.0); MEAN CORPUSCULAR HEMOGLOBIN 30 PG (26.0-33.0); MEAN CORPUSCULAR HGB CONC 34 g/dl (31.0-36.0); MEAN CORPUSCULAR VOLUME 90 fL (82-100); MONOCYTES # (AUTO) 1.2 /CMM (0.1-1.30); MONOCYTES % (AUTO) 14.1 % (2.0-12.0); NEUTROPHILS # (AUTO) 4.6 /CMM (1.8-8.9); NEUTROPHILS % (AUTO) 52.2 % (43.0-81.0); PHENYTOIN (DILANTIN) 16.5 ug/ml (10.0-20.0); PLATELET COUNT (AUTO) 382 /CMM (150-450); RDW COEFFICIENT OF VARIATION 23.9 (11.5-15.0); WHITE BLOOD COUNT (AUTO) 8.8 K/uL (4.3-11.0)
[2016-08-16] MEDS: TOBRAMYCIN 80 MG/2 ML VIAL INH SCH ×2 (09:28→21:00)
[2016-08-16] MEDS: ASPIRIN 81 MG TAB.CHEW GT SCH (09:43)
[2016-08-16] MEDS: LEVETIRACETAM SOL (5 ML) 100 MG/ML UDC GT SCH ×2 (09:43→21:04)
[2016-08-16] MEDS: ACIDOPHILUS/BULGARICUS 1 EACH TAB.CHEW GT SCH ×2 (09:44→17:09)
[2016-08-16] MEDS: OXCARBAZEPINE 150 MG TABLET PO SCH ×2 (09:44→17:09)
[2016-08-16] MEDS: CALCIUM CARBONATE 500 MG TAB.CHEW GT SCH ×2 (09:44→17:09)
[2016-08-16] MEDS: TOPIRAMATE 100 MG TABLET GT SCH ×2 (09:44→17:09)
[2016-08-16] MEDS: MULTI-DELYN GT SCH (09:44)
[2016-08-16] MEDS: ASCORBIC ACID 500 MG TABLET GT SCH (09:44)
[2016-08-16] MEDS: HYDROGEN PEROXIDE 480 ML BOTTLE TP SCH ×2 (09:45→21:04)
[2016-08-16] MEDS: ZINC OXIDE 30 GM TUBE TP SCH ×2 (09:45→21:05)
[2016-08-16] MEDS: HYDROGEL DRESSING 90 GM TUBE TP SCH ×2 (09:45→21:04)
[2016-08-16] MEDS: Z GUARD REMEDY 4 OZ OINT TP SCH ×4 (09:45→21:05)
[2016-08-16] MEDS: CLOTRIMAZOLE 1% CREAM 24 GM TUBE TP SCH ×2 (09:45→21:05)
[2016-08-16] MEDS: VITAMINS A AND D 56.7 GM TUBE TP SCH ×2 (09:45→21:05)
[2016-08-16] MEDS: ACETAMINOPHEN 650 MG/20 ML UDC- FOR SA PATIENTS ONLY GT PRN (09:46)
[2016-08-16] MEDS: MEROPENEM 500 MG in IV NS 0.9% 50 ML IV SCH ×2 (11:11→23:17)
[2016-08-16] MEDS: PHENYTOIN SUSP UDC 100 MG/4 ML UDC GT SCH (21:05)
[2016-08-16 21:21] VITALS: BP 124/69
--- NOTE | 2016-08-16 22:40 | NUR ---
trach changed due to leaking forestry pilot balloon Addendum: 08/17/16 at 0540 by WM EUGENE RT Amended: Links added.
[2016-08-17] MEDS: ALBUTEROL FS 2.5 MG/3 ML VIAL.NEB NEB SCH ×6 (03:30→22:55)
[2016-08-17] MEDS: DEXILANT 30 MG GT SCH (06:00)
[2016-08-17] MEDS: BLOOD SUGAR DIAGNOSTIC 1 EACH STRIP IN SCH ×4 (06:00→23:56)
[2016-08-17] MEDS: VANCOMYCIN HCL 125 MG/2.5 ML ORAL.SUSP GT SCH ×3 (06:00→17:10)
[2016-08-17 08:10] VITALS: BP 135/81
[2016-08-17] MEDS: TOBRAMYCIN 80 MG/2 ML VIAL INH SCH ×2 (09:00→20:53)
[2016-08-17] MEDS: MULTI-DELYN GT SCH (09:18)
[2016-08-17] MEDS: ASPIRIN 81 MG TAB.CHEW GT SCH (09:18)
[2016-08-17] MEDS: TOPIRAMATE 100 MG TABLET GT SCH ×2 (09:18→17:10)
[2016-08-17] MEDS: LEVETIRACETAM SOL (5 ML) 100 MG/ML UDC GT SCH ×2 (09:18→20:27)
[2016-08-17] MEDS: ACIDOPHILUS/BULGARICUS 1 EACH TAB.CHEW GT SCH ×2 (09:18→17:10)
[2016-08-17] MEDS: ASCORBIC ACID 500 MG TABLET GT SCH (09:18)
[2016-08-17] MEDS: CALCIUM CARBONATE 500 MG TAB.CHEW GT SCH ×2 (09:18→17:10)
[2016-08-17] MEDS: CLOTRIMAZOLE 1% CREAM 24 GM TUBE TP SCH ×2 (09:19→20:25)
[2016-08-17] MEDS: HYDROGEL DRESSING 90 GM TUBE TP SCH ×2 (09:19→20:25)
[2016-08-17] MEDS: Z GUARD REMEDY 4 OZ OINT TP SCH ×4 (09:19→20:26)
[2016-08-17] MEDS: VITAMINS A AND D 56.7 GM TUBE TP SCH ×2 (09:19→20:26)
[2016-08-17] MEDS: ZINC OXIDE 30 GM TUBE TP SCH ×2 (09:19→20:26)
[2016-08-17] MEDS: HYDROGEN PEROXIDE 480 ML BOTTLE TP SCH ×2 (09:19→20:25)
[2016-08-17] MEDS: OXCARBAZEPINE 150 MG TABLET PO SCH ×2 (09:19→17:10)
[2016-08-17] MEDS: MEROPENEM 500 MG in IV NS 0.9% 50 ML IV SCH ×2 (10:56→23:00)
--- NOTE | 2016-08-17 16:30 | NUR ---
Seen by DR. Ant Saini and he gave an order for Serum Prolactin daily for 3 days.
--- NOTE | 2016-08-17 17:36 | NUR ---
Pt tolerated current vent settings well. Suctioned moderate amount of thick secretions. Pt trach is secure. Vent is plugged into a red outlet. Alarms are set and audible. Ambu bag at bedside. Addendum: 08/17/16 at 1737 by MARKIE PINO RT Amended: Links added.
[2016-08-17 20:00] VITALS: BP 103/60
[2016-08-17] MEDS: PHENYTOIN SUSP UDC 100 MG/4 ML UDC GT SCH (22:51)
[2016-08-18] MEDS: VANCOMYCIN HCL 125 MG/2.5 ML ORAL.SUSP GT SCH ×4 (00:07→17:22)
[2016-08-18] MEDS: ALBUTEROL FS 2.5 MG/3 ML VIAL.NEB NEB SCH ×6 (03:16→22:51)
[2016-08-18] MEDS: BLOOD SUGAR DIAGNOSTIC 1 EACH STRIP IN SCH ×4 (05:16→23:33)
[2016-08-18] MEDS: DEXILANT 30 MG GT SCH (05:16)
[2016-08-18 08:01] VITALS: BP 115/62
[2016-08-18] MEDS: ASPIRIN 81 MG TAB.CHEW GT SCH (08:19)
[2016-08-18] MEDS: LEVETIRACETAM SOL (5 ML) 100 MG/ML UDC GT SCH ×2 (08:19→20:11)
[2016-08-18] MEDS: ACIDOPHILUS/BULGARICUS 1 EACH TAB.CHEW GT SCH ×2 (08:20→16:21)
[2016-08-18] MEDS: ASCORBIC ACID 500 MG TABLET GT SCH (08:20)
[2016-08-18] MEDS: TOPIRAMATE 100 MG TABLET GT SCH ×2 (08:20→16:21)
[2016-08-18] MEDS: OXCARBAZEPINE 150 MG TABLET PO SCH ×2 (08:20→16:21)
[2016-08-18] MEDS: CLOTRIMAZOLE 1% CREAM 24 GM TUBE TP SCH ×2 (08:20→20:11)
[2016-08-18] MEDS: CALCIUM CARBONATE 500 MG TAB.CHEW GT SCH ×2 (08:20→16:21)
[2016-08-18] MEDS: Z GUARD REMEDY 4 OZ OINT TP SCH ×4 (08:20→20:11)
[2016-08-18] MEDS: HYDROGEN PEROXIDE 480 ML BOTTLE TP SCH ×2 (08:20→20:11)
[2016-08-18] MEDS: MULTI-DELYN GT SCH (08:20)
[2016-08-18] MEDS: HYDROGEL DRESSING 90 GM TUBE TP SCH ×2 (08:20→20:11)
[2016-08-18] MEDS: ZINC OXIDE 30 GM TUBE TP SCH ×2 (08:21→20:12)
[2016-08-18] MEDS: VITAMINS A AND D 56.7 GM TUBE TP SCH ×2 (08:21→20:12)
[2016-08-18] MEDS: TOBRAMYCIN 80 MG/2 ML VIAL INH SCH (08:56)
[2016-08-18] MEDS: MEROPENEM 500 MG in IV NS 0.9% 50 ML IV SCH (11:05)
--- NOTE | 2016-08-18 14:35 | NUR ---
Was seen by Dr. Reggie SORIANO for dental assessment. Recommended dental cleaning if patient will tolerate procedure. Noted she did not tolerate the assessment well (kept moving, closing mouth).
--- NOTE | 2016-08-18 17:07 | NUR ---
EEG was done. Result not yet available.
[2016-08-18 20:02] VITALS: BP 117/64
[2016-08-18] MEDS: PHENYTOIN SUSP UDC 100 MG/4 ML UDC GT SCH (22:00)
[2016-08-19] MEDS: ALBUTEROL FS 2.5 MG/3 ML VIAL.NEB NEB SCH ×6 (02:39→22:46)
[2016-08-19] MEDS: DEXILANT 30 MG GT SCH (06:06)
[2016-08-19] MEDS: BLOOD SUGAR DIAGNOSTIC 1 EACH STRIP IN SCH ×3 (06:06→17:42)
[2016-08-19 08:08] VITALS: BP 113/64
[2016-08-19] MEDS: HYDROGEL DRESSING 90 GM TUBE TP SCH ×2 (09:00→20:39)
[2016-08-19] MEDS: ZINC OXIDE 30 GM TUBE TP SCH ×2 (09:00→20:39)
[2016-08-19] MEDS: Z GUARD REMEDY 4 OZ OINT TP SCH ×4 (09:00→20:39)
[2016-08-19] MEDS: CLOTRIMAZOLE 1% CREAM 24 GM TUBE TP SCH ×2 (09:00→20:39)
[2016-08-19] MEDS: HYDROGEN PEROXIDE 480 ML BOTTLE TP SCH ×2 (09:00→20:39)
[2016-08-19] MEDS: VITAMINS A AND D 56.7 GM TUBE TP SCH ×2 (09:00→20:39)
[2016-08-19] MEDS: ASPIRIN 81 MG TAB.CHEW GT SCH (09:32)
[2016-08-19] MEDS: LEVETIRACETAM SOL (5 ML) 100 MG/ML UDC GT SCH ×2 (09:32→20:39)
[2016-08-19] MEDS: ACIDOPHILUS/BULGARICUS 1 EACH TAB.CHEW GT SCH ×2 (09:33→16:29)
[2016-08-19] MEDS: OXCARBAZEPINE 150 MG TABLET PO SCH ×2 (09:33→16:29)
[2016-08-19] MEDS: ASCORBIC ACID 500 MG TABLET GT SCH (09:33)
[2016-08-19] MEDS: MULTI-DELYN GT SCH (09:33)
[2016-08-19] MEDS: TOPIRAMATE 100 MG TABLET GT SCH ×2 (09:33→16:29)
[2016-08-19] MEDS: CALCIUM CARBONATE 500 MG TAB.CHEW GT SCH ×2 (09:33→16:29)
[2016-08-19] MEDS: INSULIN REGULAR, HUMAN 100 UNIT/ML 3 ML VIAL SQ PRN ×2 (12:12→17:43)
--- NOTE | 2016-08-19 15:01 | NUR ---
Called Dr. Saini (cellular phone [phone]) and relayed Prolactin level 40.4 to him. He ordered to do a Keppra level and if Keppra level not above normal range, increase Keppra to 750 mg GT q 12 and DC Dilantin. Notified him that EEG result is still not available. He said he will read it.
[2016-08-19 19:35] VITALS: BP 105/62
[2016-08-19] MEDS: PHENYTOIN SUSP UDC 100 MG/4 ML UDC GT SCH (22:15)
[2016-08-20] MEDS: BLOOD SUGAR DIAGNOSTIC 1 EACH STRIP IN SCH ×5 (00:06→23:40)
[2016-08-20] MEDS: ALBUTEROL FS 2.5 MG/3 ML VIAL.NEB NEB SCH ×6 (02:49→23:30)
[2016-08-20] MEDS: DEXILANT 30 MG GT SCH (05:11)
[2016-08-20 07:31] VITALS: BP 117/73
[2016-08-20] MEDS: ASPIRIN 81 MG TAB.CHEW GT SCH (09:56)
[2016-08-20] MEDS: LEVETIRACETAM SOL (5 ML) 100 MG/ML UDC GT SCH ×2 (09:56→20:50)
[2016-08-20] MEDS: ACIDOPHILUS/BULGARICUS 1 EACH TAB.CHEW GT SCH ×2 (09:56→17:33)
[2016-08-20] MEDS: HYDROGEL DRESSING 90 GM TUBE TP SCH ×2 (09:57→20:50)
[2016-08-20] MEDS: TOPIRAMATE 100 MG TABLET GT SCH ×2 (09:57→17:33)
[2016-08-20] MEDS: VITAMINS A AND D 56.7 GM TUBE TP SCH ×2 (09:57→20:52)
[2016-08-20] MEDS: ZINC OXIDE 30 GM TUBE TP SCH ×2 (09:57→20:53)
[2016-08-20] MEDS: HYDROGEN PEROXIDE 480 ML BOTTLE TP SCH ×2 (09:57→20:50)
[2016-08-20] MEDS: Z GUARD REMEDY 4 OZ OINT TP SCH ×5 (09:57→20:52)
[2016-08-20] MEDS: CALCIUM CARBONATE 500 MG TAB.CHEW GT SCH ×2 (09:57→17:33)
[2016-08-20] MEDS: MULTI-DELYN GT SCH (09:57)
[2016-08-20] MEDS: OXCARBAZEPINE 150 MG TABLET PO SCH ×2 (09:57→17:33)
[2016-08-20] MEDS: CLOTRIMAZOLE 1% CREAM 24 GM TUBE TP SCH ×2 (09:57→20:51)
[2016-08-20] MEDS: ASCORBIC ACID 500 MG TABLET GT SCH (09:57)
[2016-08-20 11:22] LABS: LEVETIRACETAM 8.6 ug/mL (10.0-40.0)
--- NOTE | 2016-08-20 13:15 | NUR ---
Patient is noted with bilateral inner thigh rashes and around the chest area. Seen by Jaelyn Vargas, she gave an order to apply Z-guard Qshift x14 days and will see if its gets better or not. Sister Beckie notified via phone
[2016-08-20 19:32] VITALS: BP 100/50
[2016-08-20] MEDS: PHENYTOIN SUSP UDC 100 MG/4 ML UDC GT SCH (21:01)
[2016-08-20] MEDS: DOCUSATE SODIUM LIQ 100 MG/10 ML UDC GT PRN (21:07)
[2016-08-20] MEDS: MAGNESIUM HYDROXIDE 30 ML UDC GT PRN (21:07)
[2016-08-20] MEDS: INSULIN REGULAR, HUMAN 100 UNIT/ML 3 ML VIAL SQ PRN (23:41)
[2016-08-21] MEDS: ALBUTEROL FS 2.5 MG/3 ML VIAL.NEB NEB SCH ×6 (03:00→22:49)
--- NOTE | 2016-08-21 03:43 | NUR ---
Noted pt with scattered body rashes visible to all extremities and body area, good bed bath rendered and txs rendered as ordered, notified and updated medical charge entry specialist nurse, and will notify MD in am. Continue to monitor.
[2016-08-21] MEDS: GLYTROL 1,000 ML BAG GT PRN (03:58)
[2016-08-21] MEDS: DEXILANT 30 MG GT SCH (05:44)
[2016-08-21] MEDS: INSULIN REGULAR, HUMAN 100 UNIT/ML 3 ML VIAL SQ PRN ×2 (05:44→23:45)
[2016-08-21] MEDS: BLOOD SUGAR DIAGNOSTIC 1 EACH STRIP IN SCH ×4 (05:44→23:45)
[2016-08-21 07:50] VITALS: BP 117/70
[2016-08-21] MEDS: Z GUARD REMEDY 4 OZ OINT TP SCH ×6 (08:32→20:41)
[2016-08-21] MEDS: ASCORBIC ACID 500 MG TABLET GT SCH (08:32)
[2016-08-21] MEDS: ACIDOPHILUS/BULGARICUS 1 EACH TAB.CHEW GT SCH ×2 (08:32→16:51)
[2016-08-21] MEDS: LEVETIRACETAM SOL (5 ML) 100 MG/ML UDC GT SCH ×2 (08:32→20:40)
[2016-08-21] MEDS: MULTI-DELYN GT SCH (08:32)
[2016-08-21] MEDS: ASPIRIN 81 MG TAB.CHEW GT SCH (08:32)
[2016-08-21] MEDS: VITAMINS A AND D 56.7 GM TUBE TP SCH ×2 (08:32→20:41)
[2016-08-21] MEDS: TOPIRAMATE 100 MG TABLET GT SCH ×2 (08:32→16:51)
[2016-08-21] MEDS: OXCARBAZEPINE 150 MG TABLET PO SCH ×2 (08:32→16:51)
[2016-08-21] MEDS: CALCIUM CARBONATE 500 MG TAB.CHEW GT SCH ×2 (08:32→16:51)
[2016-08-21] MEDS: HYDROGEN PEROXIDE 480 ML BOTTLE TP SCH ×2 (08:32→20:40)
[2016-08-21] MEDS: HYDROGEL DRESSING 90 GM TUBE TP SCH ×2 (08:32→20:40)
[2016-08-21] MEDS: ZINC OXIDE 30 GM TUBE TP SCH ×2 (08:32→20:41)
[2016-08-21] MEDS: CLOTRIMAZOLE 1% CREAM 24 GM TUBE TP SCH ×2 (08:32→20:40)
--- NOTE | 2016-08-21 11:50 | NUR ---
Seen by Dr. Felix. Showed him pt's rashes. Received order to do skin scraping. Addendum: 08/21/16 at 1641 by SARITA GOMEZ RN Pt has generalized body rash.
--- NOTE | 2016-08-21 14:47 | NUR ---
No ova, parasites, or scabies seen on the skin scrapings. Notified Dr. Felix.
--- NOTE | 2016-08-21 15:33 | NUR ---
RT RECEIVED PT TRACHED ON VENT WITH SETTINGS PER MD ORDER. STATE SUPERINTENDENT OF SCHOOLS DONE. BILAT BREATH SOUNDS ON AUSCULTATION. TRACH SECURED AND AIRWAY PATENT. SPARE TRACH AND AMBU BAG AT BEDSIDE. SUCTIONED SMALL AMOUNTS OF THICK, WHITE/ YELLOW SECRETIONS. TX'S GIVEN. NO ADVERSE EFFECTS OBSERVED. VENT PLUGGED INTO RED OUTLETS. ALARMS ON AND FUNCTIONING PROPERLY. NO SIGNS OF DISTRESS NOTED. WILL CONTINUE TO MONITOR THE PATIENT FOR ANY CHANGES. Addendum: 08/21/16 at 1850 by YAMIL MARTINEZ RT Amended: Links added.
--- NOTE | 2016-08-21 16:00 | NUR ---
Asked Dr. Felix if he wanted to order anything for the generalized body rash, pt seen trying to scratch herself possibly due to itching. Dr. Felix ordered to apply moisturizing cream to the rashes.
[2016-08-21 20:33] VITALS: BP 95/55
[2016-08-21] MEDS: MINERAL OIL/PETROLATUM,WHITE 454 GM JAR TP SCH (20:40)
[2016-08-21] MEDS: PHENYTOIN SUSP UDC 100 MG/4 ML UDC GT SCH (21:37)
[2016-08-22] MEDS: ALBUTEROL FS 2.5 MG/3 ML VIAL.NEB NEB SCH ×6 (04:13→23:29)
[2016-08-22] MEDS: DEXILANT 30 MG GT SCH (05:12)
[2016-08-22] MEDS: BLOOD SUGAR DIAGNOSTIC 1 EACH STRIP IN SCH ×4 (05:12→23:38)
[2016-08-22] MEDS: MAGNESIUM HYDROXIDE 30 ML UDC GT PRN (05:13)
[2016-08-22] MEDS: INSULIN REGULAR, HUMAN 100 UNIT/ML 3 ML VIAL SQ PRN ×4 (05:13→23:38)
[2016-08-22] MEDS: DOCUSATE SODIUM LIQ 100 MG/10 ML UDC GT PRN (05:25)
[2016-08-22] MEDS: GLYTROL 1,000 ML BAG GT PRN ×2 (05:25→20:50)
--- NOTE | 2016-08-22 06:43 | NUR ---
GENERALIZED BODY RASHES STILL NOTED, TX APPLIED ORDERED, GOOD BED BATH GIVEN TO PT, STILL NOTED PT TRYING TO SCRATCH ARMS POSSIBLY D/T RASHES. NOTIFIED SHOWCASE MAKER NURSE, AND WILL UPDATE MD FOR ANY PRN ORDERS. CONTINUE TO MONITOR PT AND ANTICIPATE NEEDS. SAFETY MEASURES OBSERVED.
[2016-08-22 07:55] VITALS: BP 122/66
[2016-08-22] MEDS: HYDROGEL DRESSING 90 GM TUBE TP SCH ×2 (09:00→20:38)
[2016-08-22] MEDS: MINERAL OIL/PETROLATUM,WHITE 454 GM JAR TP SCH ×2 (09:00→20:38)
[2016-08-22] MEDS: VITAMINS A AND D 56.7 GM TUBE TP SCH ×2 (09:00→20:39)
[2016-08-22] MEDS: CLOTRIMAZOLE 1% CREAM 24 GM TUBE TP SCH ×2 (09:00→20:38)
[2016-08-22] MEDS: Z GUARD REMEDY 4 OZ OINT TP SCH ×6 (09:00→20:39)
[2016-08-22] MEDS: ZINC OXIDE 30 GM TUBE TP SCH ×2 (09:00→20:39)
[2016-08-22] MEDS: OXCARBAZEPINE 150 MG TABLET PO SCH ×2 (09:58→17:47)
[2016-08-22] MEDS: CALCIUM CARBONATE 500 MG TAB.CHEW GT SCH ×2 (09:58→17:47)
[2016-08-22] MEDS: TOPIRAMATE 100 MG TABLET GT SCH ×2 (09:58→17:00)
[2016-08-22] MEDS: ASCORBIC ACID 500 MG TABLET GT SCH (09:58)
[2016-08-22] MEDS: ASPIRIN 81 MG TAB.CHEW GT SCH (09:58)
[2016-08-22] MEDS: ACIDOPHILUS/BULGARICUS 1 EACH TAB.CHEW GT SCH ×2 (09:58→17:47)
[2016-08-22] MEDS: MULTI-DELYN GT SCH (09:58)
[2016-08-22] MEDS: LEVETIRACETAM SOL (5 ML) 100 MG/ML UDC GT SCH ×2 (09:58→20:38)
[2016-08-22] MEDS: FLUOCINONIDE 0.05% CREAM 15 GM TUBE TP SCH ×2 (13:00→20:38)
[2016-08-22] MEDS: HYDROGEN PEROXIDE 480 ML BOTTLE TP SCH ×2 (13:08→20:38)
--- NOTE | 2016-08-22 13:23 | NUR ---
Spoke with Infection Control nurse inquiring about resident's isolation. Patient has 3 negative MRSA nares cx, and can D/C MRSA isolation but to clear patient from ESBL urine, we need 2 negative urine culture, [address] Ramses Hathaway notified, will send urine specimen once specimen available.
--- NOTE | 2016-08-22 13:37 | NUR ---
Reported to Dr. Ramses Hathaway that current treatment of Eurecin cream to patient's generalized rashes not effective. Rashes are all over the body with raised red spots. Patient using hand mittens to scratch herself. New order given for Lidex cream to be applied TID, also obtain order for Dulcolax suppository PRN constipation. Orders noted and carried out. Resident's sister, Beckie notified of new order.
--- NOTE | 2016-08-22 16:51 | NUR ---
Received a call from Dr. Saini and gave an order to DC Dilantin and Topamax and increase Keppra to 1000mg q 12 hours. Per MD he read the EEG result and there are 2 seizures occurring while they were doing EEG. Notified resident's sister Beckie of the new changes in the medication, she stated "this is what she is on before". Appreciated the call.
[2016-08-22 21:33] VITALS: BP 125/63
[2016-08-23] MEDS: ALBUTEROL FS 2.5 MG/3 ML VIAL.NEB NEB SCH ×6 (03:56→23:46)
[2016-08-23] MEDS: DEXILANT 30 MG GT SCH (05:11)
[2016-08-23] MEDS: BLOOD SUGAR DIAGNOSTIC 1 EACH STRIP IN SCH ×4 (05:11→23:56)
[2016-08-23] MEDS: FLUOCINONIDE 0.05% CREAM 15 GM TUBE TP SCH ×3 (05:11→21:20)
[2016-08-23] MEDS: INSULIN REGULAR, HUMAN 100 UNIT/ML 3 ML VIAL SQ PRN ×3 (05:12→17:57)
--- NOTE | 2016-08-23 06:34 | NUR ---
PT TOPICAL MEDICATIONS (LIDEX ) APPLIED TO GENERALIZED BODY RASH.RASHES IS MORE ON THE INNER THIGH AREA LOOKS RAISE AND RED.WILL CONTINUE TO MONITOR.
[2016-08-23 07:46] VITALS: BP_SYST 105; BP_SYST 130; BP_DIAS 67; BP_DIAS 69
[2016-08-23] MEDS: HYDROGEN PEROXIDE 480 ML BOTTLE TP SCH ×2 (09:00→20:37)
[2016-08-23] MEDS: Z GUARD REMEDY 4 OZ OINT TP SCH ×5 (09:00→20:37)
[2016-08-23] MEDS: CLOTRIMAZOLE 1% CREAM 24 GM TUBE TP SCH (09:00)
[2016-08-23] MEDS: HYDROGEL DRESSING 90 GM TUBE TP SCH ×2 (09:00→20:37)
[2016-08-23] MEDS: VITAMINS A AND D 56.7 GM TUBE TP SCH ×2 (09:00→20:37)
[2016-08-23] MEDS: MINERAL OIL/PETROLATUM,WHITE 454 GM JAR TP SCH ×2 (09:00→21:20)
--- NOTE | 2016-08-23 09:41 | NUR ---
Notified Dr. Ramess Hathaway that rashes getting worst. He stated he will take a look at it today when he is in the building. Continue to apply Lidex and Eurecin cream.
[2016-08-23] MEDS: ASCORBIC ACID 500 MG TABLET GT SCH (09:55)
[2016-08-23] MEDS: OXCARBAZEPINE 150 MG TABLET PO SCH ×2 (09:55→16:39)
[2016-08-23] MEDS: MULTI-DELYN GT SCH (09:55)
[2016-08-23] MEDS: ASPIRIN 81 MG TAB.CHEW GT SCH (09:55)
[2016-08-23] MEDS: CALCIUM CARBONATE 500 MG TAB.CHEW GT SCH ×2 (09:55→16:39)
[2016-08-23] MEDS: ACIDOPHILUS/BULGARICUS 1 EACH TAB.CHEW GT SCH ×2 (09:55→16:39)
[2016-08-23] MEDS: LEVETIRACETAM SOL (5 ML) 100 MG/ML UDC GT SCH ×2 (09:55→20:37)
[2016-08-23] MEDS: ACETAMINOPHEN 650 MG/20 ML UDC- FOR SA PATIENTS ONLY GT PRN (15:46)
--- NOTE | 2016-08-23 16:03 | NUR ---
DUE TO TRACH CUFF FAILURE PATIENT'S TRACH WAS CHANGED PRN. NO BLEEDING NOTED AND STOMA IS CLEAN AND DRY. TONGUE AND GROOVE MACHINE SETTER DONE. PATIENT TOLERATING WELL. BOAT BUILDER AND REPAIRER (TAMMY) NOTIFIED.
--- NOTE | 2016-08-23 16:38 | NUR ---
Resident's sister Beckie and niece visited, they were inform of the current isolation and new orders. They were concern if the skin rashes is contagious, it is not clear if it is, but advised family to use proper PPE's and perform thorough handwashing after handling patient. Verbalized understanding.
[2016-08-23] MEDS: GLYTROL 1,000 ML BAG GT PRN (16:39)
[2016-08-23 21:33] VITALS: BP 106/63
[2016-08-24] MEDS: ALBUTEROL FS 2.5 MG/3 ML VIAL.NEB NEB SCH ×6 (03:00→22:59)
[2016-08-24] MEDS: DEXILANT 30 MG GT SCH (05:37)
[2016-08-24] MEDS: FLUOCINONIDE 0.05% CREAM 15 GM TUBE TP SCH ×3 (05:37→20:11)
[2016-08-24] MEDS: BLOOD SUGAR DIAGNOSTIC 1 EACH STRIP IN SCH ×4 (06:01→23:54)
[2016-08-24] MEDS: GLYTROL 1,000 ML BAG GT PRN ×2 (06:02→21:48)
[2016-08-24 08:02] VITALS: BP 122/63
[2016-08-24] MEDS: ASPIRIN 81 MG TAB.CHEW GT SCH (09:00)
[2016-08-24] MEDS: MULTI-DELYN GT SCH (09:00)
[2016-08-24] MEDS: CALCIUM CARBONATE 500 MG TAB.CHEW GT SCH ×2 (09:00→17:01)
[2016-08-24] MEDS: ASCORBIC ACID 500 MG TABLET GT SCH (09:00)
[2016-08-24] MEDS: OXCARBAZEPINE 150 MG TABLET PO SCH ×2 (09:00→17:01)
[2016-08-24] MEDS: MINERAL OIL/PETROLATUM,WHITE 454 GM JAR TP SCH ×2 (09:00→20:11)
[2016-08-24] MEDS: HYDROGEL DRESSING 90 GM TUBE TP SCH ×2 (09:00→20:11)
[2016-08-24] MEDS: HYDROGEN PEROXIDE 480 ML BOTTLE TP SCH ×2 (09:00→20:11)
[2016-08-24] MEDS: LEVETIRACETAM SOL (5 ML) 100 MG/ML UDC GT SCH ×2 (09:00→20:11)
[2016-08-24] MEDS: Z GUARD REMEDY 4 OZ OINT TP SCH ×4 (09:00→20:11)
[2016-08-24] MEDS: VITAMINS A AND D 56.7 GM TUBE TP SCH ×2 (09:00→20:12)
[2016-08-24] MEDS: ACIDOPHILUS/BULGARICUS 1 EACH TAB.CHEW GT SCH ×2 (09:00→17:01)
--- NOTE | 2016-08-24 11:28 | NUR ---
Seen by neurologist Dr. Saini. Pt awake, able to track. No episodes of seizure noted. No new order given at this time.
[2016-08-24] MEDS: INSULIN REGULAR, HUMAN 100 UNIT/ML 3 ML VIAL SQ PRN ×3 (14:42→23:54)
--- NOTE | 2016-08-24 16:26 | NUR ---
Notified Dr. Hathaway that patient still with generalized body rash. Pt's sister inquiring if they can bring colloidal soap for pt. Per Dr. Hathaway, okay for family to bring colloidal soap. Order obtained, noted and carried out. Pt's sister Beckie notified, appreciative of call.
--- NOTE | 2016-08-24 17:01 | NUR ---
Relayed urine C/S result obtained on 08/22/[address] Hathaway: >100,000 Pseudomonas Aeruginosa. Order obtained for Levaquin via GT qd x 7 days. Order noted and carried out. Pt's sister Beckie notified, verbalized understanding.
--- NOTE | 2016-08-24 17:36 | NUR ---
Pt tolerated current vent settings. Pt trach is secure. Vent is plugged into a red outlet, alarms are set and audible. Ambu bag at bedside. Addendum: 08/24/16 at 1737 by MARKIE PINO RT Amended: Links added.
[2016-08-24] MEDS: LEVOFLOXACIN (500MG) 500 MG TABLET GT SCH (18:06)
[2016-08-24 20:13] VITALS: BP 129/62
[2016-08-25] MEDS: ALBUTEROL FS 2.5 MG/3 ML VIAL.NEB NEB SCH ×6 (03:43→23:30)
[2016-08-25] MEDS: DEXILANT 30 MG GT SCH (05:33)
[2016-08-25] MEDS: FLUOCINONIDE 0.05% CREAM 15 GM TUBE TP SCH ×3 (05:33→20:11)
[2016-08-25] MEDS: BLOOD SUGAR DIAGNOSTIC 1 EACH STRIP IN SCH ×4 (05:33→23:31)
[2016-08-25] MEDS: INSULIN REGULAR, HUMAN 100 UNIT/ML 3 ML VIAL SQ PRN ×3 (05:33→17:35)
[2016-08-25 07:51] VITALS: BP 122/73
--- NOTE | 2016-08-25 08:52 | NUR ---
Pt was seen by Dr. Montaño. Showed him pt's rashes. He ordered to have Didi from Infection Control do skin scraping and to contact him. He also ordered to give Ivermectin 140 mcg via GT x 3 7 days apart. Notified Didi of Dr. Montaño's order.
[2016-08-25] MEDS ORDERED: LEVOFLOXACIN (500MG) 500 MG TABLET GT SCH (09:00)
[2016-08-25] MEDS: HYDROGEN PEROXIDE 480 ML BOTTLE TP SCH ×2 (09:00→20:11)
[2016-08-25] MEDS: Z GUARD REMEDY 4 OZ OINT TP SCH ×4 (09:00→20:11)
[2016-08-25] MEDS: VITAMINS A AND D 56.7 GM TUBE TP SCH ×2 (09:00→20:11)
[2016-08-25] MEDS: MINERAL OIL/PETROLATUM,WHITE 454 GM JAR TP SCH ×2 (09:45→20:11)
[2016-08-25] MEDS: LEVETIRACETAM SOL (5 ML) 100 MG/ML UDC GT SCH ×2 (09:45→20:11)
[2016-08-25] MEDS: HYDROGEL DRESSING 90 GM TUBE TP SCH ×2 (09:45→20:11)
[2016-08-25] MEDS: MULTI-DELYN GT SCH (09:45)
[2016-08-25] MEDS: CALCIUM CARBONATE 500 MG TAB.CHEW GT SCH ×2 (09:45→16:53)
[2016-08-25] MEDS: OXCARBAZEPINE 150 MG TABLET PO SCH ×2 (09:45→16:53)
[2016-08-25] MEDS: ACIDOPHILUS/BULGARICUS 1 EACH TAB.CHEW GT SCH ×2 (09:45→16:53)
[2016-08-25] MEDS: ASCORBIC ACID 500 MG TABLET GT SCH (09:45)
[2016-08-25] MEDS: ASPIRIN 81 MG TAB.CHEW GT SCH (09:45)
--- NOTE | 2016-08-25 11:00 | NUR ---
Clarified Ivermectin dose with Dr. Montaño. Received new Ivermectin dose of 12 mg via GT x 3, 7 days apart.
--- NOTE | 2016-08-25 11:20 | NUR ---
Adilson from Infection Control came to do skin scraping. Specimen was sent to the lab.
--- NOTE | 2016-08-25 13:00 | NUR ---
Pt negative for scabies. Notified Dr. Montaño and received order to DC Ivermectin.
[2016-08-25] MEDS: LEVOFLOXACIN (500MG) 500 MG TABLET GT SCH (17:34)
[2016-08-25 20:07] VITALS: BP 141/64
[2016-08-26] MEDS: ALBUTEROL FS 2.5 MG/3 ML VIAL.NEB NEB SCH ×6 (03:30→23:30)
[2016-08-26] MEDS: DEXILANT 30 MG GT SCH (05:05)
[2016-08-26] MEDS: FLUOCINONIDE 0.05% CREAM 15 GM TUBE TP SCH ×3 (05:05→21:00)
[2016-08-26] MEDS: BLOOD SUGAR DIAGNOSTIC 1 EACH STRIP IN SCH ×3 (06:01→17:45)
[2016-08-26 07:41] VITALS: BP 107/70
[2016-08-26] MEDS: OXCARBAZEPINE 150 MG TABLET PO SCH ×2 (09:54→16:57)
[2016-08-26] MEDS: ASPIRIN 81 MG TAB.CHEW GT SCH (09:54)
[2016-08-26] MEDS: LEVETIRACETAM SOL (5 ML) 100 MG/ML UDC GT SCH ×2 (09:54→21:00)
[2016-08-26] MEDS: HYDROGEL DRESSING 90 GM TUBE TP SCH ×2 (09:54→21:00)
[2016-08-26] MEDS: MULTI-DELYN GT SCH (09:54)
[2016-08-26] MEDS: ASCORBIC ACID 500 MG TABLET GT SCH (09:54)
[2016-08-26] MEDS: CALCIUM CARBONATE 500 MG TAB.CHEW GT SCH ×2 (09:54→16:57)
[2016-08-26] MEDS: ACIDOPHILUS/BULGARICUS 1 EACH TAB.CHEW GT SCH ×2 (09:54→16:57)
[2016-08-26] MEDS: HYDROGEN PEROXIDE 480 ML BOTTLE TP SCH ×2 (09:55→21:00)
[2016-08-26] MEDS: Z GUARD REMEDY 4 OZ OINT TP SCH ×4 (09:55→21:00)
[2016-08-26] MEDS: VITAMINS A AND D 56.7 GM TUBE TP SCH ×2 (09:55→21:00)
[2016-08-26] MEDS: MINERAL OIL/PETROLATUM,WHITE 454 GM JAR TP SCH ×2 (09:55→21:00)
--- NOTE | 2016-08-26 10:00 | NUR ---
Seen by Dr. Felix. Notified him that another skin scraping was done yesterday and result came back negative for scabies. Received order for dermatology consult. Notified family welfare social work professor Christi.
--- NOTE | 2016-08-26 10:22 | NUR ---
Charge nurse informed SW that resident is in need of a dermatology consult due to rashes. SW contacted [facility] (Dr. Leon's office: [address] [place] [address] ). STEPHEN spoke to Sofia who asked SW to please fax facesheet and information to them. Info was faxed. She stated Dr. Leon can most likely come tomorrow in order to do the consultation. Charge nurse was informed.
--- NOTE | 2016-08-26 10:45 | NUR ---
Notified pt's sister that pt still has rashes but negative for scabies, business objects analyst might be able to come tomorrow. Beckie said she is about to come to visit today to bring pt's own body wash which might help clear the rashes, and since business objects analyst might come tomorrow, she will come today and tomorrow.
[2016-08-26] MEDS: INSULIN REGULAR, HUMAN 100 UNIT/ML 3 ML VIAL SQ PRN ×2 (13:46→17:47)
[2016-08-26] MEDS: LEVOFLOXACIN (500MG) 500 MG TABLET GT SCH (17:43)
[2016-08-26 19:35] VITALS: BP 154/69
[2016-08-27] MEDS: BLOOD SUGAR DIAGNOSTIC 1 EACH STRIP IN SCH ×5 (00:52→23:31)
[2016-08-27] MEDS: INSULIN REGULAR, HUMAN 100 UNIT/ML 3 ML VIAL SQ PRN ×2 (00:53→05:24)
[2016-08-27] MEDS: ALBUTEROL FS 2.5 MG/3 ML VIAL.NEB NEB SCH ×6 (02:58→23:30)
[2016-08-27] MEDS: FLUOCINONIDE 0.05% CREAM 15 GM TUBE TP SCH ×3 (05:14→20:04)
[2016-08-27] MEDS: DEXILANT 30 MG GT SCH (05:15)
[2016-08-27] MEDS: GLYTROL 1,000 ML BAG GT PRN ×2 (06:51→22:24)
[2016-08-27 07:50] VITALS: BP 120/66
[2016-08-27] MEDS: MULTI-DELYN GT SCH (09:43)
[2016-08-27] MEDS: ACIDOPHILUS/BULGARICUS 1 EACH TAB.CHEW GT SCH ×2 (09:43→17:33)
[2016-08-27] MEDS: CALCIUM CARBONATE 500 MG TAB.CHEW GT SCH ×2 (09:43→17:33)
[2016-08-27] MEDS: ASCORBIC ACID 500 MG TABLET GT SCH (09:43)
[2016-08-27] MEDS: HYDROGEL DRESSING 90 GM TUBE TP SCH ×2 (09:46→20:03)
[2016-08-27] MEDS: ASPIRIN 81 MG TAB.CHEW GT SCH (09:46)
[2016-08-27] MEDS: Z GUARD REMEDY 4 OZ OINT TP SCH ×4 (09:46→20:04)
[2016-08-27] MEDS: HYDROGEN PEROXIDE 480 ML BOTTLE TP SCH ×2 (09:46→20:04)
[2016-08-27] MEDS: LEVETIRACETAM SOL (5 ML) 100 MG/ML UDC GT SCH ×2 (09:46→20:03)
[2016-08-27] MEDS: OXCARBAZEPINE 150 MG TABLET PO SCH ×2 (09:46→17:33)
[2016-08-27] MEDS: MINERAL OIL/PETROLATUM,WHITE 454 GM JAR TP SCH ×2 (09:46→20:04)
[2016-08-27] MEDS: VITAMINS A AND D 56.7 GM TUBE TP SCH ×2 (09:46→20:04)
--- NOTE | 2016-08-27 11:04 | NUR ---
Urine culture results is negative for ESBL, Notified infection control and reviewed results okay to discontinue isolation. Noted and carried out.
--- NOTE | 2016-08-27 13:50 | NUR ---
SW called the office of Dr. Leon to follow up about consultation visit. corporate secretary stated that Dr. Leon can come after work either today or tomorrow (after 5:30pm). Charge nurse informed.
[2016-08-27] MEDS: LEVOFLOXACIN (500MG) 500 MG TABLET GT SCH (17:33)
[2016-08-27] MEDS: MAGNESIUM HYDROXIDE 30 ML UDC GT PRN (17:34)
[2016-08-27 19:32] VITALS: BP 110/64
--- NOTE | 2016-08-27 19:50 | NUR ---
PT REC'D ON TRACH ABRILLEY 8 ON VENT SETTINGS CHARTED. TRACH IS SECURE AND IS IN PROPER POSITION. NO RESP DISTRESS NOTED. VENT ALARMS ARE SET AND AUDIBLE. VENT IS PLUGGED IN RED OUTLET AMBU BAG IS BEDSIDE. SX MODERATE THICK YELLOW SECRETIONS. WILL CONTINUE TO MONITOR. Addendum: 08/28/16 at 0412 by LADAN WICK RT Amended: Links added.
[2016-08-27] MEDS: TRILEPTAL GT SCH (20:03)
[2016-08-28] MEDS: ALBUTEROL FS 2.5 MG/3 ML VIAL.NEB NEB SCH ×6 (03:31→23:05)
[2016-08-28] MEDS: DEXILANT 30 MG GT SCH (05:04)
[2016-08-28] MEDS: FLUOCINONIDE 0.05% CREAM 15 GM TUBE TP SCH ×3 (05:04→20:54)
[2016-08-28] MEDS: BLOOD SUGAR DIAGNOSTIC 1 EACH STRIP IN SCH ×4 (05:55→23:08)
[2016-08-28 07:45] VITALS: BP 114/81
[2016-08-28] MEDS: MULTI-DELYN GT SCH (09:37)
[2016-08-28] MEDS: ACIDOPHILUS/BULGARICUS 1 EACH TAB.CHEW GT SCH ×2 (09:37→17:00)
[2016-08-28] MEDS: ASPIRIN 81 MG TAB.CHEW GT SCH (09:37)
[2016-08-28] MEDS: LEVETIRACETAM SOL (5 ML) 100 MG/ML UDC GT SCH ×2 (09:37→20:52)
[2016-08-28] MEDS: TRILEPTAL GT SCH ×2 (09:37→20:52)
[2016-08-28] MEDS: ASCORBIC ACID 500 MG TABLET GT SCH (09:41)
[2016-08-28] MEDS: HYDROGEL DRESSING 90 GM TUBE TP SCH ×2 (09:41→20:52)
[2016-08-28] MEDS: CALCIUM CARBONATE 500 MG TAB.CHEW GT SCH ×2 (09:41→17:00)
[2016-08-28] MEDS: MINERAL OIL/PETROLATUM,WHITE 454 GM JAR TP SCH ×2 (09:42→20:53)
[2016-08-28] MEDS: Z GUARD REMEDY 4 OZ OINT TP SCH ×4 (09:42→20:54)
[2016-08-28] MEDS: VITAMINS A AND D 56.7 GM TUBE TP SCH ×2 (09:42→20:55)
[2016-08-28] MEDS: HYDROGEN PEROXIDE 480 ML BOTTLE TP SCH ×2 (09:42→20:54)
[2016-08-28] MEDS: GLYTROL 1,000 ML BAG GT PRN (15:59)
[2016-08-28] MEDS: MAGNESIUM HYDROXIDE 30 ML UDC GT PRN (15:59)
[2016-08-28] MEDS: LEVOFLOXACIN (500MG) 500 MG TABLET GT SCH (17:30)
--- NOTE | 2016-08-28 18:38 | NUR ---
Seen by Dr. Escalante. No new order.
--- NOTE | 2016-08-28 19:10 | NUR ---
NOTED PT WITH SEIZURE EPISODE LASTED 30 SECONDS WITH NO RESPIRATORY DISTRESS, ARMS FLUNG OUT, EYES ROLLING AND TWITCHING, NO DROOLING NOTED, REMAINS AWAKE AFTER EPISODE WITH V/S : 98.7 HR 103, RR 18, 02 99%, TRACH TO VENTILATOR. SEIZURE PRECAUTIONS OBSERVED, PADDED SR'S UP X 2. NO S/SX OF INJURY SUSTAINED. ASSESSED BY RN/ CHARGE NURSE JOAN. WILL CONTINUE TO MONITOR PT, WILL GIVE ROUTINE ANTI SZ MEDICINES ORDERED.
[2016-08-28 21:26] VITALS: BP 116/64
[2016-08-28] MEDS: INSULIN REGULAR, HUMAN 100 UNIT/ML 3 ML VIAL SQ PRN (23:08)
[2016-08-29] MEDS: ALBUTEROL FS 2.5 MG/3 ML VIAL.NEB NEB SCH ×5 (03:30→19:25)
[2016-08-29] MEDS: FLUOCINONIDE 0.05% CREAM 15 GM TUBE TP SCH ×3 (05:11→20:24)
[2016-08-29] MEDS: INSULIN REGULAR, HUMAN 100 UNIT/ML 3 ML VIAL SQ PRN ×2 (05:11→23:13)
[2016-08-29] MEDS: BLOOD SUGAR DIAGNOSTIC 1 EACH STRIP IN SCH ×4 (05:11→23:13)
[2016-08-29] MEDS: DEXILANT 30 MG GT SCH (05:11)
[2016-08-29 07:32] VITALS: BP 123/67
--- NOTE | 2016-08-29 08:40 | NUR ---
Resident was seen by maintenance and engineering manager Dr. Escalante yesterday.
[2016-08-29] MEDS: TRILEPTAL GT SCH ×2 (09:01→20:24)
[2016-08-29] MEDS: LEVETIRACETAM SOL (5 ML) 100 MG/ML UDC GT SCH ×2 (09:01→20:24)
[2016-08-29] MEDS: MULTI-DELYN GT SCH (09:01)
[2016-08-29] MEDS: ASPIRIN 81 MG TAB.CHEW GT SCH (09:01)
[2016-08-29] MEDS: CALCIUM CARBONATE 500 MG TAB.CHEW GT SCH ×2 (09:01→17:21)
[2016-08-29] MEDS: ASCORBIC ACID 500 MG TABLET GT SCH (09:01)
[2016-08-29] MEDS: HYDROGEL DRESSING 90 GM TUBE TP SCH ×2 (09:06→20:24)
[2016-08-29] MEDS: VITAMINS A AND D 56.7 GM TUBE TP SCH ×2 (09:07→20:25)
[2016-08-29] MEDS: MINERAL OIL/PETROLATUM,WHITE 454 GM JAR TP SCH ×2 (09:07→20:24)
[2016-08-29] MEDS: Z GUARD REMEDY 4 OZ OINT TP SCH ×4 (09:07→20:25)
[2016-08-29] MEDS: HYDROGEN PEROXIDE 480 ML BOTTLE TP SCH ×2 (09:07→20:24)
[2016-08-29] MEDS: ACIDOPHILUS/BULGARICUS 1 EACH TAB.CHEW GT SCH ×2 (09:10→17:21)
--- NOTE | 2016-08-29 16:13 | NUR ---
IDT meeting held, sister participated the meeting via conference call. Reviewed current orders, medications and treatment. Informed Dr. Felix that resident with episode of seizure approx 30 sec. yesterday. At this time no PRN seizure medication was ordered. New order given fo Ativan 1 mg. per GT Q 4 hours PRN seizure. Reported by RT that trach noted with leaking. New order to change trach to Shiley # 8, proximal extra long by ENT. Left a message to Dr. Burnett, ENT, spoke with Ada regarding trach change order. Prepared supplies at the bedside.
[2016-08-29] MEDS: LEVOFLOXACIN (500MG) 500 MG TABLET GT SCH (17:21)
[2016-08-29 20:21] VITALS: BP 133/72
[2016-08-30] MEDS: ALBUTEROL FS 2.5 MG/3 ML VIAL.NEB NEB SCH ×7 (00:13→22:51)
[2016-08-30] MEDS: GLYTROL 1,000 ML BAG GT PRN ×2 (03:32→18:32)
[2016-08-30] MEDS: FLUOCINONIDE 0.05% CREAM 15 GM TUBE TP SCH ×3 (05:02→20:18)
[2016-08-30] MEDS: DEXILANT 30 MG GT SCH (05:02)
[2016-08-30] MEDS: BLOOD SUGAR DIAGNOSTIC 1 EACH STRIP IN SCH ×4 (05:20→23:33)
[2016-08-30] MEDS: INSULIN REGULAR, HUMAN 100 UNIT/ML 3 ML VIAL SQ PRN ×4 (05:20→23:34)
[2016-08-30 07:39] VITALS: BP 130/64
[2016-08-30] MEDS: ASPIRIN 81 MG TAB.CHEW GT SCH (08:48)
[2016-08-30] MEDS: LEVETIRACETAM SOL (5 ML) 100 MG/ML UDC GT SCH ×2 (08:50→20:18)
[2016-08-30] MEDS: TRILEPTAL GT SCH ×2 (08:50→20:18)
[2016-08-30] MEDS: MULTI-DELYN GT SCH (08:51)
[2016-08-30] MEDS: ACIDOPHILUS/BULGARICUS 1 EACH TAB.CHEW GT SCH ×2 (08:51→17:36)
[2016-08-30] MEDS: CALCIUM CARBONATE 500 MG TAB.CHEW GT SCH ×2 (08:51→17:36)
[2016-08-30] MEDS: MINERAL OIL/PETROLATUM,WHITE 454 GM JAR TP SCH ×2 (08:52→20:18)
[2016-08-30] MEDS: Z GUARD REMEDY 4 OZ OINT TP SCH ×4 (08:52→20:18)
[2016-08-30] MEDS: ASCORBIC ACID 500 MG TABLET GT SCH (08:52)
[2016-08-30] MEDS: HYDROGEN PEROXIDE 480 ML BOTTLE TP SCH ×2 (08:52→20:18)
[2016-08-30] MEDS: VITAMINS A AND D 56.7 GM TUBE TP SCH ×2 (08:52→20:18)
[2016-08-30] MEDS: LEVOFLOXACIN (500MG) 500 MG TABLET GT SCH (17:36)
[2016-08-30 21:25] VITALS: BP 124/62
[2016-08-31] MEDS: ALBUTEROL FS 2.5 MG/3 ML VIAL.NEB NEB SCH ×6 (03:33→23:18)
[2016-08-31] MEDS: INSULIN REGULAR, HUMAN 100 UNIT/ML 3 ML VIAL SQ PRN ×4 (05:22→23:38)
[2016-08-31] MEDS: FLUOCINONIDE 0.05% CREAM 15 GM TUBE TP SCH ×3 (05:22→20:40)
[2016-08-31] MEDS: GLYTROL 1,000 ML BAG GT PRN ×2 (05:22→23:10)
[2016-08-31] MEDS: BLOOD SUGAR DIAGNOSTIC 1 EACH STRIP IN SCH ×4 (05:22→23:37)
[2016-08-31] MEDS: DEXILANT 30 MG GT SCH (05:22)
[2016-08-31 07:42] VITALS: BP 139/73
[2016-08-31] MEDS: LEVETIRACETAM SOL (5 ML) 100 MG/ML UDC GT SCH ×2 (08:44→20:40)
[2016-08-31] MEDS: TRILEPTAL GT SCH ×2 (08:44→20:40)
[2016-08-31] MEDS: ASPIRIN 81 MG TAB.CHEW GT SCH (08:44)
[2016-08-31] MEDS: MULTI-DELYN GT SCH (08:45)
[2016-08-31] MEDS: ACIDOPHILUS/BULGARICUS 1 EACH TAB.CHEW GT SCH ×2 (08:45→17:04)
[2016-08-31] MEDS: ASCORBIC ACID 500 MG TABLET GT SCH (08:45)
[2016-08-31] MEDS: CALCIUM CARBONATE 500 MG TAB.CHEW GT SCH ×2 (08:45→17:04)
[2016-08-31] MEDS: HYDROGEN PEROXIDE 480 ML BOTTLE TP SCH ×2 (08:46→20:40)
[2016-08-31] MEDS: MINERAL OIL/PETROLATUM,WHITE 454 GM JAR TP SCH ×2 (08:46→20:40)
[2016-08-31] MEDS: Z GUARD REMEDY 4 OZ OINT TP SCH ×4 (08:46→20:40)
[2016-08-31] MEDS: VITAMINS A AND D 56.7 GM TUBE TP SCH ×2 (08:48→20:40)
[2016-08-31 20:01] VITALS: BP 126/69
[2016-08-31] MEDS: ACETAMINOPHEN 650 MG/20 ML UDC- FOR SA PATIENTS ONLY GT PRN (23:31)
[2016-09-01] MEDS: ALBUTEROL FS 2.5 MG/3 ML VIAL.NEB NEB SCH ×5 (02:58→19:30)
[2016-09-01] MEDS: FLUOCINONIDE 0.05% CREAM 15 GM TUBE TP SCH ×3 (05:00→20:21)
[2016-09-01] MEDS: BLOOD SUGAR DIAGNOSTIC 1 EACH STRIP IN SCH ×4 (06:19→23:20)
[2016-09-01] MEDS: INSULIN REGULAR, HUMAN 100 UNIT/ML 3 ML VIAL SQ PRN ×3 (06:19→18:28)
[2016-09-01] MEDS: DEXILANT 30 MG GT SCH (06:19)
[2016-09-01] MEDS: GLYTROL 1,000 ML BAG GT PRN (06:32)
[2016-09-01 07:12] LABS: CALCIUM, SERUM 9.6 mg/dL (8.5-10.1); CREATININE 1.9 mg/dL (0.6-1.3); POTASSIUM 4.1 mmol/L (3.5-5.1)
[2016-09-01 07:34] VITALS: BP 127/84
[2016-09-01] MEDS: MINERAL OIL/PETROLATUM,WHITE 454 GM JAR TP SCH ×2 (09:00→20:21)
[2016-09-01] MEDS: HYDROGEN PEROXIDE 480 ML BOTTLE TP SCH ×2 (09:00→20:21)
[2016-09-01] MEDS: VITAMINS A AND D 56.7 GM TUBE TP SCH ×2 (09:00→20:21)
[2016-09-01] MEDS: Z GUARD REMEDY 4 OZ OINT TP SCH ×4 (09:00→20:21)
[2016-09-01] MEDS: LEVETIRACETAM SOL (5 ML) 100 MG/ML UDC GT SCH ×2 (09:51→20:21)
[2016-09-01] MEDS: TRILEPTAL GT SCH ×2 (09:51→20:21)
[2016-09-01] MEDS: ASPIRIN 81 MG TAB.CHEW GT SCH (09:51)
[2016-09-01] MEDS: ASCORBIC ACID 500 MG TABLET GT SCH (09:52)
[2016-09-01] MEDS: CALCIUM CARBONATE 500 MG TAB.CHEW GT SCH ×2 (09:52→17:52)
[2016-09-01] MEDS: ACIDOPHILUS/BULGARICUS 1 EACH TAB.CHEW GT SCH ×2 (09:52→17:52)
[2016-09-01] MEDS: MULTI-DELYN GT SCH (09:52)
--- NOTE | 2016-09-01 15:12 | NUR ---
Spoke to Susana at the office of Dr. Leon and notified her that Dr. Leon never came to do the consult. Susana called back ten minutes later and stated that Dr. Leon has been out sick with the cold and has not been into work. She noted that she spoke to him and that he was going to try to come this week. Charge nurse informed.
--- NOTE | 2016-09-01 18:22 | NUR ---
Seen by NATURAL DEVELOPER Anna Vargas. Relayed BMP and Calcium results to her. No new order.
[2016-09-01 19:38] VITALS: BP 124/66
[2016-09-02] MEDS: ALBUTEROL FS 2.5 MG/3 ML VIAL.NEB NEB SCH ×7 (00:01→23:30)
[2016-09-02] MEDS: DEXILANT 30 MG GT SCH (05:36)
[2016-09-02] MEDS: FLUOCINONIDE 0.05% CREAM 15 GM TUBE TP SCH ×3 (05:36→20:17)
[2016-09-02] MEDS: BLOOD SUGAR DIAGNOSTIC 1 EACH STRIP IN SCH ×4 (06:10→23:26)
[2016-09-02 08:05] VITALS: BP 111/64
--- NOTE | 2016-09-02 09:00 | NUR ---
Seen and examined by Dr Felix with no new order
[2016-09-02] MEDS: MINERAL OIL/PETROLATUM,WHITE 454 GM JAR TP SCH ×2 (09:11→20:17)
[2016-09-02] MEDS: ASPIRIN 81 MG TAB.CHEW GT SCH (09:11)
[2016-09-02] MEDS: MULTI-DELYN GT SCH (09:11)
[2016-09-02] MEDS: CALCIUM CARBONATE 500 MG TAB.CHEW GT SCH ×2 (09:11→17:01)
[2016-09-02] MEDS: ASCORBIC ACID 500 MG TABLET GT SCH (09:11)
[2016-09-02] MEDS: LEVETIRACETAM SOL (5 ML) 100 MG/ML UDC GT SCH ×2 (09:11→20:17)
[2016-09-02] MEDS: HYDROGEN PEROXIDE 480 ML BOTTLE TP SCH ×2 (09:11→20:17)
[2016-09-02] MEDS: ACIDOPHILUS/BULGARICUS 1 EACH TAB.CHEW GT SCH ×2 (09:11→17:01)
[2016-09-02] MEDS: TRILEPTAL GT SCH ×2 (09:11→20:17)
[2016-09-02] MEDS: VITAMINS A AND D 56.7 GM TUBE TP SCH ×2 (09:12→20:17)
[2016-09-02] MEDS: Z GUARD REMEDY 4 OZ OINT TP SCH ×4 (09:12→20:17)
[2016-09-02] MEDS: INSULIN REGULAR, HUMAN 100 UNIT/ML 3 ML VIAL SQ PRN ×2 (14:09→18:35)
--- NOTE | 2016-09-02 14:46 | NUR ---
Dr. Morillo (staff internist office based only) saw resident and cut resident's nails. No new order was given.
[2016-09-02 20:15] VITALS: BP 118/77
[2016-09-03] MEDS: GLYTROL 1,000 ML BAG GT PRN ×2 (01:19→22:27)
[2016-09-03] MEDS: ALBUTEROL FS 2.5 MG/3 ML VIAL.NEB NEB SCH ×6 (03:30→22:59)
[2016-09-03] MEDS: FLUOCINONIDE 0.05% CREAM 15 GM TUBE TP SCH ×3 (05:24→20:38)
[2016-09-03] MEDS: DEXILANT 30 MG GT SCH (05:24)
[2016-09-03] MEDS: BLOOD SUGAR DIAGNOSTIC 1 EACH STRIP IN SCH ×4 (05:59→23:22)
[2016-09-03 07:42] VITALS: BP 117/71
[2016-09-03] MEDS: HYDROGEN PEROXIDE 480 ML BOTTLE TP SCH ×2 (09:00→20:38)
[2016-09-03] MEDS: MINERAL OIL/PETROLATUM,WHITE 454 GM JAR TP SCH ×2 (09:00→20:38)
[2016-09-03] MEDS: Z GUARD REMEDY 4 OZ OINT TP SCH ×3 (09:00→20:38)
[2016-09-03] MEDS: VITAMINS A AND D 56.7 GM TUBE TP SCH ×2 (09:00→20:38)
--- NOTE | 2016-09-03 09:06 | NUR ---
Left a message to Dr. Villalba through his staff Roth regarding trach change. Awaiting for MD to call back.
[2016-09-03] MEDS: TRILEPTAL GT SCH ×2 (09:07→20:38)
[2016-09-03] MEDS: MULTI-DELYN GT SCH (09:07)
[2016-09-03] MEDS: LEVETIRACETAM SOL (5 ML) 100 MG/ML UDC GT SCH ×2 (09:07→20:38)
[2016-09-03] MEDS: ASPIRIN 81 MG TAB.CHEW GT SCH (09:07)
[2016-09-03] MEDS: ACIDOPHILUS/BULGARICUS 1 EACH TAB.CHEW GT SCH ×2 (09:07→16:35)
[2016-09-03] MEDS: CALCIUM CARBONATE 500 MG TAB.CHEW GT SCH ×2 (09:08→16:36)
[2016-09-03] MEDS: ASCORBIC ACID 500 MG TABLET GT SCH (09:08)
--- NOTE | 2016-09-03 15:34 | NUR ---
Dr. Villalba, ENT returned the call and he stated that he will see patient tomorrow between 0930 to 1000 for trach change. Endorsed.
[2016-09-03 21:22] VITALS: BP 123/69
[2016-09-04] MEDS: ALBUTEROL FS 2.5 MG/3 ML VIAL.NEB NEB SCH ×6 (03:33→22:51)
[2016-09-04] MEDS: FLUOCINONIDE 0.05% CREAM 15 GM TUBE TP SCH ×3 (05:22→21:22)
[2016-09-04] MEDS: DEXILANT 30 MG GT SCH (05:22)
[2016-09-04] MEDS: BLOOD SUGAR DIAGNOSTIC 1 EACH STRIP IN SCH ×4 (05:57→23:32)
[2016-09-04 07:34] VITALS: BP 116/69
[2016-09-04] MEDS: ASPIRIN 81 MG TAB.CHEW GT SCH (09:41)
[2016-09-04] MEDS: TRILEPTAL GT SCH ×2 (09:41→21:12)
[2016-09-04] MEDS: LEVETIRACETAM SOL (5 ML) 100 MG/ML UDC GT SCH ×2 (09:42→21:12)
[2016-09-04] MEDS: MULTI-DELYN GT SCH (09:42)
[2016-09-04] MEDS: ACIDOPHILUS/BULGARICUS 1 EACH TAB.CHEW GT SCH ×2 (09:42→17:50)
[2016-09-04] MEDS: ASCORBIC ACID 500 MG TABLET GT SCH (09:42)
[2016-09-04] MEDS: CALCIUM CARBONATE 500 MG TAB.CHEW GT SCH ×2 (09:42→17:50)
[2016-09-04] MEDS: VITAMINS A AND D 56.7 GM TUBE TP SCH ×2 (09:53→21:22)
[2016-09-04] MEDS: MINERAL OIL/PETROLATUM,WHITE 454 GM JAR TP SCH ×2 (09:53→21:14)
[2016-09-04] MEDS: Z GUARD REMEDY 4 OZ OINT TP SCH ×2 (09:53→21:22)
[2016-09-04] MEDS: HYDROGEN PEROXIDE 480 ML BOTTLE TP SCH ×2 (09:53→21:14)
--- NOTE | 2016-09-04 12:00 | NUR ---
Seen by Dr. Montaño. Pt's rashes have improved and clearing up. Paper Machine Back Tender has not yet come to see pt. Received order to DC dermatology consult. Notified neonatal social worker Christi.
[2016-09-04] MEDS: ACETAMINOPHEN 650 MG/20 ML UDC- FOR SA PATIENTS ONLY GT PRN ×2 (12:40→22:07)
--- NOTE | 2016-09-04 12:40 | NUR ---
Notified Dr. Felix that pt has been coughing and Dr. Villalba already came to change the trach tube. Pt still coughing after trach change. Received order to give Hycodan 5 cc via GT q 8 hours PRN for cough.
--- NOTE | 2016-09-04 12:45 | NUR ---
Dr. Villalba came and changed pt's trach tube to Shiley # 8 XLT proximal. Pt tolerated procedure well. No respiratory distress.
--- NOTE | 2016-09-04 13:00 | NUR ---
Seen by ECONOMIC GEOGRAPHER Anna Vargas. Notified her that pt's urine has a strong odor. Pt afebrile. Received order to increase water flushes to 250 cc q 6 hours.
[2016-09-04] MEDS: DOCUSATE SODIUM LIQ 100 MG/10 ML UDC GT PRN (13:11)
[2016-09-04] MEDS ORDERED: HYCODAN PO PRN (14:00)
[2016-09-04] MEDS ORDERED: HYDROCODONE BIT/HOMATROPINE 5 ML UDC PO PRN (14:00)
--- NOTE | 2016-09-04 15:09 | NUR ---
Informed by charge nurse that resident no longer in need of dermatology consult as order was cancelled due to resident's rashes getting better. Called the office of Dr. Leon to cancel.
[2016-09-04] MEDS: GLYTROL 1,000 ML BAG GT PRN (17:50)
--- NOTE | 2016-09-04 20:00 | NUR ---
Pt had low grade temp of 100.1 ,cooling measures given and Tylenol given via GT for discomfort.Pt noted with on and off coughing episodes,s/p trach change during the day,tinged of blood noted,no respiratory distress noted.Will continue to monitor.
[2016-09-04 20:57] VITALS: BP 123/67
[2016-09-04] MEDS: HYDROGEL DRESSING 90 GM TUBE TP SCH (21:22)
--- NOTE | 2016-09-04 22:00 | NUR ---
Temp re checked 98.7,calm and asleep.All needs attended.
[2016-09-04] MEDS: INSULIN REGULAR, HUMAN 100 UNIT/ML 3 ML VIAL SQ PRN (23:33)
[2016-09-05] MEDS: ALBUTEROL FS 2.5 MG/3 ML VIAL.NEB NEB SCH ×6 (03:39→23:30)
[2016-09-05] MEDS: FLUOCINONIDE 0.05% CREAM 15 GM TUBE TP SCH (05:00)
[2016-09-05] MEDS: DEXILANT 30 MG GT SCH (06:11)
[2016-09-05] MEDS: BLOOD SUGAR DIAGNOSTIC 1 EACH STRIP IN SCH ×3 (06:11→18:35)
[2016-09-05] MEDS: INSULIN REGULAR, HUMAN 100 UNIT/ML 3 ML VIAL SQ PRN (06:11)
[2016-09-05 07:41] VITALS: BP 100/60
[2016-09-05] MEDS: TRILEPTAL GT SCH ×2 (09:12→20:55)
[2016-09-05] MEDS: CALCIUM CARBONATE 500 MG TAB.CHEW GT SCH ×2 (09:12→16:36)
[2016-09-05] MEDS: ACIDOPHILUS/BULGARICUS 1 EACH TAB.CHEW GT SCH ×2 (09:12→16:36)
[2016-09-05] MEDS: LEVETIRACETAM SOL (5 ML) 100 MG/ML UDC GT SCH ×2 (09:12→20:55)
[2016-09-05] MEDS: MULTI-DELYN GT SCH (09:12)
[2016-09-05] MEDS: ASPIRIN 81 MG TAB.CHEW GT SCH (09:12)
[2016-09-05] MEDS: ASCORBIC ACID 500 MG TABLET GT SCH (09:12)
[2016-09-05] MEDS: HYDROGEL DRESSING 90 GM TUBE TP SCH ×2 (09:28→20:56)
[2016-09-05] MEDS: Z GUARD REMEDY 4 OZ OINT TP SCH ×2 (09:28→20:56)
[2016-09-05] MEDS: MINERAL OIL/PETROLATUM,WHITE 454 GM JAR TP SCH ×2 (09:28→20:56)
[2016-09-05] MEDS: VITAMINS A AND D 56.7 GM TUBE TP SCH ×2 (09:28→20:56)
[2016-09-05] MEDS: HYDROGEN PEROXIDE 480 ML BOTTLE TP SCH ×2 (09:28→20:56)
--- NOTE | 2016-09-05 12:08 | NUR ---
Notified Dr. Felix resident with low grade temp 100.7, 100/60, P 100, RR 16, 99%, Cooling measures done. No order given at this time. Will continue to monitor.
[2016-09-05] MEDS ORDERED: HYDROCODONE BIT/HOMATROPINE 5 ML UDC PO PRN (15:00)
--- NOTE | 2016-09-05 15:22 | NUR ---
New Phone Number for sister Beckie: [phone]
[2016-09-05 18:12] LABS: APPEARANCE,URINE TURBID (CLEAR); BILIRUBIN,URINE NEGATIVE (NEGATIVE); BLOOD, URINE 2+ Ery/uL (NEGATIVE); COLOR,URINE YELLOW (YELLOW); KETONES,URINE NEGATIVE (NEGATIVE); LEUKOCYTE ESTERASE ,URINE 3+ (NEGATIVE); NITRITE, URINE NEGATIVE (NEGATIVE); PROTEIN,URINE 2+ mg/dl (NEGATIVE); UGLUCOSE NEGATIVE (NEGATIVE); UROBILINOGEN,URINE 0.2 EU/dL (0.2)
[2016-09-05 18:35] LABS: BACTERIA,URINE 2+ /HPF (None Seen); SQUAMOUS EPITHELIAL CELL,UR Moderate /HPF (None Seen); WBC,URINE 51-80 /HPF (0-3)
[2016-09-05 19:59] VITALS: BP 123/75
[2016-09-06] MEDS: BLOOD SUGAR DIAGNOSTIC 1 EACH STRIP IN SCH ×4 (00:32→17:12)
[2016-09-06] MEDS: INSULIN REGULAR, HUMAN 100 UNIT/ML 3 ML VIAL SQ PRN ×2 (00:33→06:02)
[2016-09-06] MEDS: ALBUTEROL FS 2.5 MG/3 ML VIAL.NEB NEB SCH ×5 (03:10→19:26)
[2016-09-06] MEDS: DEXILANT 30 MG GT SCH (06:01)
[2016-09-06] MEDS: GLYTROL 1,000 ML BAG GT PRN (06:06)
[2016-09-06 08:00] VITALS: BP 122/73
[2016-09-06] MEDS: LEVETIRACETAM SOL (5 ML) 100 MG/ML UDC GT SCH ×2 (08:38→21:27)
[2016-09-06] MEDS: ACIDOPHILUS/BULGARICUS 1 EACH TAB.CHEW GT SCH ×2 (08:38→17:12)
[2016-09-06] MEDS: CALCIUM CARBONATE 500 MG TAB.CHEW GT SCH ×2 (08:38→17:12)
[2016-09-06] MEDS: ASPIRIN 81 MG TAB.CHEW GT SCH (08:38)
[2016-09-06] MEDS: ASCORBIC ACID 500 MG TABLET GT SCH (08:38)
[2016-09-06] MEDS: MULTI-DELYN GT SCH (08:38)
[2016-09-06] MEDS: TRILEPTAL GT SCH ×2 (08:38→21:27)
[2016-09-06] MEDS: ACETAMINOPHEN 650 MG/20 ML UDC- FOR SA PATIENTS ONLY GT PRN ×2 (08:39→20:29)
[2016-09-06] MEDS: MINERAL OIL/PETROLATUM,WHITE 454 GM JAR TP SCH ×2 (10:30→21:27)
[2016-09-06] MEDS: VITAMINS A AND D 56.7 GM TUBE TP SCH ×2 (10:30→21:27)
[2016-09-06] MEDS: HYDROGEL DRESSING 90 GM TUBE TP SCH ×2 (10:30→21:27)
[2016-09-06] MEDS: HYDROGEN PEROXIDE 480 ML BOTTLE TP SCH ×2 (10:30→21:27)
[2016-09-06] MEDS: Z GUARD REMEDY 4 OZ OINT TP SCH ×2 (10:30→21:27)
--- NOTE | 2016-09-06 10:45 | NUR ---
@0830 V/S: T-101.5, P-72, R- 20, B/P-122/73 , 02- 96%, Opens her eyes on tactile stimuli, resp even unlabored, skin warm and dry to touch, no facial grimacing. Cooling measures provided. Incontinent, no foul smell on urine, no hematuria noted. GTF on going per MD's order, fluids given, am care provided by the BOOK MENDER. Tylenol 650mg via GT given for febrile status. Will continue to monitor condition. Charge Nurse made aware.
--- NOTE | 2016-09-06 10:57 | NUR ---
@0930 T- 98.4, no acute distress noted.
--- NOTE | 2016-09-06 15:18 | NUR ---
Left a message to Dr. Montaño regarding preliminary urine culture result showing gram negative rods > 100,000 cfu/ml, also left a message asking if he wants to refer patient to ID. Awaiting for MD's response.
[2016-09-06] MEDS ORDERED: HYDROCODONE BIT/HOMATROPINE 5 ML UDC GT PRN (16:12)
--- NOTE | 2016-09-06 17:00 | NUR ---
Asked NAN Loredo if she was seeing patient, a preliminary urine culture shows gram negative rods > 100cfu/ml. She stated that she will inform Dr. Montaño that she will follow the patient. Stated she will review labs, culture result and will order ATB.
--- NOTE | 2016-09-06 18:00 | NUR ---
Received ATB order from NAN Loredo ID for UTI, Maxipime IV. Faxed order to [facility].
[2016-09-06] MEDS ORDERED: CEFEPIME 1 GM in IV D5W 50 ML IV SCH ×2 (19:00→20:00)
[2016-09-06] MEDS ORDERED: CEFEPIME 1 GM VIAL ONE (19:57)
[2016-09-06 20:14] VITALS: BP 120/73
--- NOTE | 2016-09-06 20:30 | NUR ---
Pt noted increased temp of 102.4. Cooling measure initiated and PRN Tylenol 650 mg given via gtube. Charge nurse called MD, awaiting return call. No sign of respiratory distress noted. Will closely monitor.
[2016-09-07] MEDS: ALBUTEROL FS 2.5 MG/3 ML VIAL.NEB NEB SCH ×7 (00:09→23:25)
[2016-09-07] MEDS: GLYTROL 1,000 ML BAG GT PRN (00:55)
[2016-09-07] MEDS: BLOOD SUGAR DIAGNOSTIC 1 EACH STRIP IN SCH ×5 (00:55→23:33)
[2016-09-07] MEDS: INSULIN REGULAR, HUMAN 100 UNIT/ML 3 ML VIAL SQ PRN ×2 (00:56→05:52)
[2016-09-07] MEDS: ACETAMINOPHEN 650 MG/20 ML UDC- FOR SA PATIENTS ONLY GT PRN ×2 (01:35→02:35)
[2016-09-07] MEDS: DEXILANT 30 MG GT SCH (05:52)
--- NOTE | 2016-09-07 06:00 | NUR ---
Patient continue in cooling measures due to low grade, temp of 100.4 noted at this time. PRN tylenol given as ordered. On ATB Mexipime IV. No A/R noted during shift.
[2016-09-07 06:50] LABS: BASOPHILS % (AUTO) 0.2 % (0.0-2.0); EOSINOPHILS # (AUTO) 0.8 /CMM (0.0-0.7); EOSINOPHILS % (AUTO) 4.8 % (0.0-6.0); HEMATOCRIT 24 % (33-45); HEMOGLOBIN 8.3 g/dL (11.5-14.8); LYMPHOCYTES # (AUTO) 1.8 /CMM (0.8-4.8); LYMPHOCYTES % (AUTO) 10.8 % (20.0-44.0); MEAN CORPUSCULAR HEMOGLOBIN 32 PG (26.0-33.0); MEAN CORPUSCULAR HGB CONC 34 g/dl (31.0-36.0); MEAN CORPUSCULAR VOLUME 94 fL (82-100); MONOCYTES # (AUTO) 1.8 /CMM (0.1-1.30); MONOCYTES % (AUTO) 10.7 % (2.0-12.0); NEUTROPHILS # (AUTO) 12.2 /CMM (1.8-8.9); NEUTROPHILS % (AUTO) 73.5 % (43.0-81.0); PLATELET COUNT (AUTO) 351 /CMM (150-450); RDW COEFFICIENT OF VARIATION 21.4 (11.5-15.0); RED BLOOD CELL COUNT(AUTO) 2.61 MIL/uL (4.0-5.2); WHITE BLOOD COUNT (AUTO) 16.6 K/uL (4.3-11.0)
[2016-09-07 08:00] VITALS: BP 108/64
[2016-09-07] MEDS: CALCIUM CARBONATE 500 MG TAB.CHEW GT SCH ×2 (08:51→16:39)
[2016-09-07] MEDS: TRILEPTAL GT SCH ×2 (08:51→21:07)
[2016-09-07] MEDS: ACIDOPHILUS/BULGARICUS 1 EACH TAB.CHEW GT SCH ×2 (08:51→16:39)
[2016-09-07] MEDS: LEVETIRACETAM SOL (5 ML) 100 MG/ML UDC GT SCH ×2 (08:51→21:07)
[2016-09-07] MEDS: ASCORBIC ACID 500 MG TABLET GT SCH (08:51)
[2016-09-07] MEDS: MULTI-DELYN GT SCH (08:51)
[2016-09-07] MEDS: ASPIRIN 81 MG TAB.CHEW GT SCH (08:51)
[2016-09-07] MEDS: HYDROGEL DRESSING 90 GM TUBE TP SCH ×2 (09:00→21:07)
[2016-09-07] MEDS: VITAMINS A AND D 56.7 GM TUBE TP SCH ×2 (09:00→21:07)
[2016-09-07] MEDS: HYDROGEN PEROXIDE 480 ML BOTTLE TP SCH ×2 (09:00→21:07)
[2016-09-07] MEDS: MINERAL OIL/PETROLATUM,WHITE 454 GM JAR TP SCH ×2 (09:00→21:07)
[2016-09-07] MEDS: Z GUARD REMEDY 4 OZ OINT TP SCH ×2 (09:00→21:07)
--- NOTE | 2016-09-07 11:00 | NUR ---
Received chest x-ray result and CBC relayed to NAN Loredo with no new order given.
--- NOTE | 2016-09-07 15:50 | NUR ---
Received urine culture result pt is resistant to Cefepime reported to NAN Loredo with new order to discontinue Cefepime and changed to Merrem 500mg IV Q8hrs orders noted and carried out. Faxed to Pharmacy the new order.
--- NOTE | 2016-09-07 17:23 | NUR ---
Female trach pt on mechanical ventilator. Pt trach is secure. Vent alarms are set and audible. Vent is plugged into a red outlet. Ambu bag at bedside. Addendum: 09/07/16 at 1725 by MARKIE PINO RT Amended: Links added.
[2016-09-07] MEDS: MEROPENEM 500 MG in IV NS 0.9% 50 ML IV SCH (17:34)
--- NOTE | 2016-09-07 18:49 | NUR ---
Left a voice message to sister Ashwini regarding chest x-ray & cbc result no new order given by NAN Loredo.
[2016-09-07 19:46] VITALS: BP 107/67
[2016-09-08] MEDS: MEROPENEM 500 MG in IV NS 0.9% 50 ML IV SCH ×3 (01:35→21:52)
[2016-09-08] MEDS: ALBUTEROL FS 2.5 MG/3 ML VIAL.NEB NEB SCH ×6 (04:08→23:23)
[2016-09-08] MEDS: BLOOD SUGAR DIAGNOSTIC 1 EACH STRIP IN SCH ×4 (05:47→23:07)
[2016-09-08] MEDS: DEXILANT 30 MG GT SCH (05:47)
[2016-09-08 08:00] VITALS: BP 121/74
[2016-09-08] MEDS: Z GUARD REMEDY 4 OZ OINT TP SCH ×2 (09:00→20:23)
[2016-09-08] MEDS: MULTI-DELYN GT SCH (09:00)
[2016-09-08] MEDS: ASCORBIC ACID 500 MG TABLET GT SCH (09:00)
[2016-09-08] MEDS: MINERAL OIL/PETROLATUM,WHITE 454 GM JAR TP SCH ×2 (09:00→20:23)
[2016-09-08] MEDS: HYDROGEL DRESSING 90 GM TUBE TP SCH ×2 (09:00→20:23)
[2016-09-08] MEDS: VITAMINS A AND D 56.7 GM TUBE TP SCH ×2 (09:00→20:23)
[2016-09-08] MEDS: ACIDOPHILUS/BULGARICUS 1 EACH TAB.CHEW GT SCH ×2 (09:00→16:52)
[2016-09-08] MEDS: CALCIUM CARBONATE 500 MG TAB.CHEW GT SCH ×2 (09:00→16:52)
[2016-09-08] MEDS: LEVETIRACETAM SOL (5 ML) 100 MG/ML UDC GT SCH ×2 (09:00→20:22)
[2016-09-08] MEDS: HYDROGEN PEROXIDE 480 ML BOTTLE TP SCH ×2 (09:00→20:23)
[2016-09-08] MEDS: ASPIRIN 81 MG TAB.CHEW GT SCH (09:00)
[2016-09-08] MEDS: TRILEPTAL GT SCH ×2 (09:00→20:22)
[2016-09-08] MEDS: INSULIN REGULAR, HUMAN 100 UNIT/ML 3 ML VIAL SQ PRN ×2 (13:29→18:45)
--- NOTE | 2016-09-08 16:09 | NUR ---
Received order to give Prostat 30 mL via G-tube BID as supplement per shellfish bed worker's recommendation.
--- NOTE | 2016-09-08 16:14 | NUR ---
Pt placed on contact isolation for E. coli ESBL urine, moved pt to Room 266-1. Notified pt's sister. Also notified her of Prostat order.
[2016-09-08 19:45] VITALS: BP 131/67
[2016-09-08] MEDS: GLYTROL 1,000 ML BAG GT PRN (23:44)
[2016-09-09] MEDS: ALBUTEROL FS 2.5 MG/3 ML VIAL.NEB NEB SCH ×6 (03:42→23:20)
[2016-09-09] MEDS: DEXILANT 30 MG GT SCH (05:05)
[2016-09-09] MEDS: BLOOD SUGAR DIAGNOSTIC 1 EACH STRIP IN SCH ×4 (05:31→23:52)
[2016-09-09 07:58] VITALS: BP 126/70
[2016-09-09] MEDS: TRILEPTAL GT SCH ×2 (08:47→20:55)
[2016-09-09] MEDS: LEVETIRACETAM SOL (5 ML) 100 MG/ML UDC GT SCH ×2 (08:47→20:54)
[2016-09-09] MEDS: ACIDOPHILUS/BULGARICUS 1 EACH TAB.CHEW GT SCH ×2 (08:47→16:30)
[2016-09-09] MEDS: ASPIRIN 81 MG TAB.CHEW GT SCH (08:47)
[2016-09-09] MEDS: MULTI-DELYN GT SCH (08:48)
[2016-09-09] MEDS: ASCORBIC ACID 500 MG TABLET GT SCH (08:48)
[2016-09-09] MEDS: CALCIUM CARBONATE 500 MG TAB.CHEW GT SCH ×2 (08:48→16:31)
[2016-09-09] MEDS: PROSOURCE / PROSTAT (PYXIS) 30 ML UDC GT SCH ×2 (08:48→16:30)
[2016-09-09] MEDS: HYDROGEN PEROXIDE 480 ML BOTTLE TP SCH ×2 (09:00→20:58)
[2016-09-09] MEDS: VITAMINS A AND D 56.7 GM TUBE TP SCH (09:00)
[2016-09-09] MEDS: HYDROGEL DRESSING 90 GM TUBE TP SCH ×2 (09:00→20:56)
[2016-09-09] MEDS: MINERAL OIL/PETROLATUM,WHITE 454 GM JAR TP SCH ×2 (09:00→20:55)
[2016-09-09] MEDS: Z GUARD REMEDY 4 OZ OINT TP SCH ×2 (09:00→20:57)
[2016-09-09] MEDS: MEROPENEM 500 MG in IV NS 0.9% 50 ML IV SCH ×2 (09:11→21:00)
--- NOTE | 2016-09-09 10:05 | NUR ---
Seen and examined by Dr Felix with no new order
[2016-09-09] MEDS: INSULIN REGULAR, HUMAN 100 UNIT/ML 3 ML VIAL SQ PRN ×2 (12:53→18:20)
[2016-09-09 19:46] VITALS: BP 132/82
--- NOTE | 2016-09-10 00:18 | NUR ---
facility maintenance supervisor notes ' blood sugar 117, no insulin given as ordered, no signs of hypo glycemia noted.
[2016-09-10] MEDS: ALBUTEROL FS 2.5 MG/3 ML VIAL.NEB NEB SCH ×5 (02:41→19:30)
[2016-09-10] MEDS: DEXILANT 30 MG GT SCH (05:12)
[2016-09-10] MEDS: BLOOD SUGAR DIAGNOSTIC 1 EACH STRIP IN SCH ×4 (05:24→23:38)
[2016-09-10] MEDS: GLYTROL 1,000 ML BAG GT PRN ×2 (05:24→21:08)
--- NOTE | 2016-09-10 05:24 | NUR ---
duct layer supervisor notes , blood sugar checked done 104 no insulin coverages given , no signs of hypo glycemia noted.
[2016-09-10 08:25] VITALS: BP 130/70
[2016-09-10] MEDS: MEROPENEM 500 MG in IV NS 0.9% 50 ML IV SCH ×2 (09:00→21:00)
[2016-09-10] MEDS: LEVETIRACETAM SOL (5 ML) 100 MG/ML UDC GT SCH ×2 (09:48→20:04)
[2016-09-10] MEDS: ASPIRIN 81 MG TAB.CHEW GT SCH (09:48)
[2016-09-10] MEDS: PROSOURCE / PROSTAT (PYXIS) 30 ML UDC GT SCH ×2 (09:48→16:36)
[2016-09-10] MEDS: CALCIUM CARBONATE 500 MG TAB.CHEW GT SCH ×2 (09:48→16:36)
[2016-09-10] MEDS: ACIDOPHILUS/BULGARICUS 1 EACH TAB.CHEW GT SCH ×2 (09:48→16:36)
[2016-09-10] MEDS: TRILEPTAL GT SCH ×2 (09:48→20:04)
[2016-09-10] MEDS: ASCORBIC ACID 500 MG TABLET GT SCH (09:48)
[2016-09-10] MEDS: MULTI-DELYN GT SCH (09:48)
[2016-09-10] MEDS: HYDROGEL DRESSING 90 GM TUBE TP SCH ×2 (09:51→20:04)
[2016-09-10] MEDS: Z GUARD REMEDY 4 OZ OINT TP SCH ×2 (09:51→20:04)
[2016-09-10] MEDS: MINERAL OIL/PETROLATUM,WHITE 454 GM JAR TP SCH ×2 (09:51→20:04)
[2016-09-10] MEDS: HYDROGEN PEROXIDE 480 ML BOTTLE TP SCH ×2 (09:51→20:04)
[2016-09-10 20:00] VITALS: BP 131/76
[2016-09-11] MEDS: ALBUTEROL FS 2.5 MG/3 ML VIAL.NEB NEB SCH ×7 (00:21→23:05)
[2016-09-11] MEDS: DEXILANT 30 MG GT SCH (05:15)
[2016-09-11] MEDS: BLOOD SUGAR DIAGNOSTIC 1 EACH STRIP IN SCH ×4 (05:23→23:45)
[2016-09-11 07:41] VITALS: BP 125/60
[2016-09-11] MEDS: PROSOURCE / PROSTAT (PYXIS) 30 ML UDC GT SCH ×2 (08:33→16:43)
[2016-09-11] MEDS: ACIDOPHILUS/BULGARICUS 1 EACH TAB.CHEW GT SCH ×2 (08:33→16:43)
[2016-09-11] MEDS: CALCIUM CARBONATE 500 MG TAB.CHEW GT SCH ×2 (08:33→16:43)
[2016-09-11] MEDS: TRILEPTAL GT SCH ×2 (08:33→20:17)
[2016-09-11] MEDS: ASCORBIC ACID 500 MG TABLET GT SCH (08:33)
[2016-09-11] MEDS: LEVETIRACETAM SOL (5 ML) 100 MG/ML UDC GT SCH ×2 (08:33→20:17)
[2016-09-11] MEDS: MULTI-DELYN GT SCH (08:33)
[2016-09-11] MEDS: ASPIRIN 81 MG TAB.CHEW GT SCH (08:33)
[2016-09-11] MEDS: MINERAL OIL/PETROLATUM,WHITE 454 GM JAR TP SCH ×2 (09:00→20:17)
[2016-09-11] MEDS: Z GUARD REMEDY 4 OZ OINT TP SCH ×2 (09:00→20:17)
[2016-09-11] MEDS: HYDROGEN PEROXIDE 480 ML BOTTLE TP SCH ×2 (09:00→20:17)
[2016-09-11] MEDS: HYDROGEL DRESSING 90 GM TUBE TP SCH ×2 (09:00→20:17)
[2016-09-11] MEDS: MEROPENEM 500 MG in IV NS 0.9% 50 ML IV SCH ×2 (09:15→21:05)
[2016-09-11] MEDS: GLYTROL 1,000 ML BAG GT PRN (17:00)
--- NOTE | 2016-09-11 17:48 | NUR ---
RT RECEIVED PT TRACH'D ON [facility] VENT WITH SETTINGS PER MD ORDER. CHURCH OFFICIAL DONE. RHONCHI BREATH SOUNDS ON AUSCULTATION. ALARMS ON AND SET PROPERLY. VENT PLUGGED INTO RED OUTLET. SPARE TRACH AND AMBU BAG AT BEDSIDE. SUCTIONED SMALL AMOUNTS OF THICK WHITE/YELLOW SECRETIONS. BREATHING TX'S GIVEN ORDERED. NO ADVERSE REACTIONS NOTED. NO SOB OR SIGNS OF DISTRESS NOTED. WILL CONTINUE TO MONITOR THE PATIENT FOR ANY CHANGES. Addendum: 09/11/16 at 1750 by YAMIL MARTINEZ RT Amended: Links added.
[2016-09-11 20:00] VITALS: BP 126/64
[2016-09-11 20:43] VITALS: BP 95/77
[2016-09-11] MEDS: INSULIN REGULAR, HUMAN 100 UNIT/ML 3 ML VIAL SQ PRN (23:45)
[2016-09-12] MEDS: ALBUTEROL FS 2.5 MG/3 ML VIAL.NEB NEB SCH ×6 (03:33→23:33)
[2016-09-12] MEDS: DEXILANT 30 MG GT SCH (05:10)
[2016-09-12] MEDS: BLOOD SUGAR DIAGNOSTIC 1 EACH STRIP IN SCH ×4 (05:10→23:29)
[2016-09-12] MEDS: INSULIN REGULAR, HUMAN 100 UNIT/ML 3 ML VIAL SQ PRN ×2 (05:11→23:29)
[2016-09-12 08:07] VITALS: BP 118/77
[2016-09-12] MEDS: MEROPENEM 500 MG in IV NS 0.9% 50 ML IV SCH ×2 (08:28→20:53)
[2016-09-12] MEDS: ACIDOPHILUS/BULGARICUS 1 EACH TAB.CHEW GT SCH ×2 (08:35→16:38)
[2016-09-12] MEDS: ASPIRIN 81 MG TAB.CHEW GT SCH (08:35)
[2016-09-12] MEDS: LEVETIRACETAM SOL (5 ML) 100 MG/ML UDC GT SCH ×2 (08:35→20:04)
[2016-09-12] MEDS: TRILEPTAL GT SCH ×2 (08:35→20:04)
[2016-09-12] MEDS: ASCORBIC ACID 500 MG TABLET GT SCH (08:36)
[2016-09-12] MEDS: MULTI-DELYN GT SCH (08:36)
[2016-09-12] MEDS: PROSOURCE / PROSTAT (PYXIS) 30 ML UDC GT SCH ×2 (08:36→16:38)
[2016-09-12] MEDS: CALCIUM CARBONATE 500 MG TAB.CHEW GT SCH ×2 (08:36→16:38)
[2016-09-12] MEDS: Z GUARD REMEDY 4 OZ OINT TP SCH ×2 (08:45→20:04)
[2016-09-12] MEDS: HYDROGEN PEROXIDE 480 ML BOTTLE TP SCH ×2 (08:45→20:04)
[2016-09-12] MEDS: HYDROGEL DRESSING 90 GM TUBE TP SCH ×2 (08:45→20:04)
[2016-09-12] MEDS: MINERAL OIL/PETROLATUM,WHITE 454 GM JAR TP SCH ×2 (08:45→20:04)
--- NOTE | 2016-09-12 09:02 | NUR ---
Patient's iv began to leak. tried to reinsert new iv line, patient is a hardstick. Obtained MD order for midline. Family member Devan aware about midline. Nursing scanner supervisor is aware about midline for patient.
[2016-09-12] MEDS: GLYTROL 1,000 ML BAG GT PRN (18:18)
[2016-09-12 21:28] VITALS: BP 111/73
[2016-09-13] MEDS: ALBUTEROL FS 2.5 MG/3 ML VIAL.NEB NEB SCH ×6 (03:21→23:30)
[2016-09-13] MEDS: BLOOD SUGAR DIAGNOSTIC 1 EACH STRIP IN SCH ×4 (05:12→23:25)
[2016-09-13] MEDS: DEXILANT 30 MG GT SCH (05:12)
[2016-09-13] MEDS: INSULIN REGULAR, HUMAN 100 UNIT/ML 3 ML VIAL SQ PRN ×4 (05:13→23:25)
[2016-09-13] MEDS: ASPIRIN 81 MG TAB.CHEW GT SCH (08:16)
[2016-09-13] MEDS: TRILEPTAL GT SCH ×2 (08:18→20:05)
[2016-09-13] MEDS: LEVETIRACETAM SOL (5 ML) 100 MG/ML UDC GT SCH ×2 (08:19→20:05)
[2016-09-13] MEDS: MVI/MINERALS LIQUID (CEROVITE) GT SCH (08:20)
[2016-09-13] MEDS: ACIDOPHILUS/BULGARICUS 1 EACH TAB.CHEW GT SCH ×2 (08:20→17:33)
[2016-09-13] MEDS: PROSOURCE / PROSTAT (PYXIS) 30 ML UDC GT SCH ×2 (08:24→17:33)
[2016-09-13] MEDS: CALCIUM CARBONATE 500 MG TAB.CHEW GT SCH ×2 (08:24→17:33)
[2016-09-13] MEDS: ASCORBIC ACID 500 MG TABLET GT SCH (08:24)
[2016-09-13] MEDS: Z GUARD REMEDY 4 OZ OINT TP SCH ×2 (08:25→20:05)
[2016-09-13] MEDS: MINERAL OIL/PETROLATUM,WHITE 454 GM JAR TP SCH ×2 (08:25→20:05)
[2016-09-13] MEDS: HYDROGEN PEROXIDE 480 ML BOTTLE TP SCH ×2 (08:25→20:05)
[2016-09-13] MEDS: HYDROGEL DRESSING 90 GM TUBE TP SCH ×2 (08:25→20:05)
[2016-09-13] MEDS: MEROPENEM 500 MG in IV NS 0.9% 50 ML IV SCH ×2 (08:34→21:25)
[2016-09-13 08:38] VITALS: BP 97/64
[2016-09-13] MEDS: GLYTROL 1,000 ML BAG GT PRN ×3 (09:08→23:25)
--- NOTE | 2016-09-13 12:00 | NUR ---
BLOOD SUGAR 122 MG/DL NO INSULIN COVERAGE.
[2016-09-13 19:40] VITALS: BP 125/72
[2016-09-13] MEDS: ACETAMINOPHEN 650 MG/20 ML UDC- FOR SA PATIENTS ONLY GT PRN (21:01)
--- NOTE | 2016-09-13 21:05 | NUR ---
NOTED PT WITH ORAL TEMP OF 101.0 HR 108, NO RESP DISTRESS, COOLING MEASURES RENDERED, BED BATH GIVEN AND PRN TYLENOL 650 MG TO GT GIVEN ORDERED FOR TEMP >100.5, PT STILL ON CONTACT ISOLATION FOR ESBL URINE AND ON IV ATB MEREM. NOTIFIED HANDLE TURNER NURSE AND CONTINUE TO MONITOR.
[2016-09-13] MEDS: CODEINE/PROMETHAZINE HCL 5 ML UDC GT PRN (21:59)
--- NOTE | 2016-09-13 22:05 | NUR ---
RE-CHECKED PT'S ORAL TEMP 98.2 HR 100, NOTED WITH EPISODE OF COUGHING, SX'D MOD AMT OF THIN PALE YELLOW SECRETIONS, NO ACUTE DISTRESS NOTED, PRN PHENERGAN CODEINE 5 ML TO GT GIVEN ORDERED FOR COUGH. CONT TO MONITOR AND ANTICIPATE NEEDS.
[2016-09-13 23:42] VITALS: BP 108/65
--- NOTE | 2016-09-14 00:05 | NUR ---
RESIDENT COMFORTABLY SLEEPING AT THIS TIME, TEMP 98.7 HR 90 . NO COUGHING NOTED, BS NOTED 122 NO COVERAGE GIVEN PER SCALE, GTF ONGOING AND TOLERATING ,.HOB ELEVATED, SR'S UP X 4 PADDED ; SEIZURE PRECAUTIONS OBSERVED. WILL CONT TO MONITOR.
[2016-09-14] MEDS: ALBUTEROL FS 2.5 MG/3 ML VIAL.NEB NEB SCH ×6 (03:30→23:48)
[2016-09-14] MEDS: DEXILANT 30 MG GT SCH (05:12)
[2016-09-14] MEDS: BLOOD SUGAR DIAGNOSTIC 1 EACH STRIP IN SCH ×4 (05:12→23:15)
[2016-09-14] MEDS: INSULIN REGULAR, HUMAN 100 UNIT/ML 3 ML VIAL SQ PRN ×3 (05:12→18:06)
[2016-09-14 08:00] VITALS: BP 123/73
[2016-09-14] MEDS: ASPIRIN 81 MG TAB.CHEW GT SCH (08:45)
[2016-09-14] MEDS: MVI/MINERALS LIQUID (CEROVITE) GT SCH (08:45)
[2016-09-14] MEDS: ACIDOPHILUS/BULGARICUS 1 EACH TAB.CHEW GT SCH ×2 (08:45→16:28)
[2016-09-14] MEDS: LEVETIRACETAM SOL (5 ML) 100 MG/ML UDC GT SCH ×2 (08:45→20:07)
[2016-09-14] MEDS: TRILEPTAL GT SCH ×2 (08:45→20:07)
[2016-09-14] MEDS: CALCIUM CARBONATE 500 MG TAB.CHEW GT SCH ×2 (08:46→16:28)
[2016-09-14] MEDS: ASCORBIC ACID 500 MG TABLET GT SCH (08:46)
[2016-09-14] MEDS: PROSOURCE / PROSTAT (PYXIS) 30 ML UDC GT SCH ×2 (08:46→16:28)
[2016-09-14] MEDS: MEROPENEM 500 MG in IV NS 0.9% 50 ML IV SCH ×2 (08:49→21:17)
[2016-09-14] MEDS: HYDROGEN PEROXIDE 480 ML BOTTLE TP SCH ×2 (09:00→20:07)
[2016-09-14] MEDS: MINERAL OIL/PETROLATUM,WHITE 454 GM JAR TP SCH ×2 (09:00→20:07)
[2016-09-14] MEDS: HYDROGEL DRESSING 90 GM TUBE TP SCH ×2 (09:00→20:07)
[2016-09-14] MEDS: Z GUARD REMEDY 4 OZ OINT TP SCH ×2 (09:00→20:07)
[2016-09-14 20:00] VITALS: BP 123/65
[2016-09-15] MEDS: ALBUTEROL FS 2.5 MG/3 ML VIAL.NEB NEB SCH ×6 (03:30→23:30)
[2016-09-15] MEDS: DEXILANT 30 MG GT SCH (05:28)
[2016-09-15] MEDS: BLOOD SUGAR DIAGNOSTIC 1 EACH STRIP IN SCH ×4 (05:45→23:11)
[2016-09-15 07:24] LABS: CALCIUM, SERUM 9.8 mg/dL (8.5-10.1); CREATININE 1.6 mg/dL (0.6-1.3); POTASSIUM 4.1 mmol/L (3.5-5.1)
[2016-09-15 08:00] VITALS: BP 122/66
[2016-09-15] MEDS: MEROPENEM 500 MG in IV NS 0.9% 50 ML IV SCH ×2 (09:00→21:56)
[2016-09-15] MEDS: MINERAL OIL/PETROLATUM,WHITE 454 GM JAR TP SCH ×2 (09:00→20:16)
[2016-09-15] MEDS: HYDROGEL DRESSING 90 GM TUBE TP SCH ×2 (09:00→20:16)
[2016-09-15] MEDS: HYDROGEN PEROXIDE 480 ML BOTTLE TP SCH ×2 (09:00→20:16)
[2016-09-15] MEDS: Z GUARD REMEDY 4 OZ OINT TP SCH ×2 (09:00→20:16)
[2016-09-15] MEDS: ASCORBIC ACID 500 MG TABLET GT SCH (09:28)
[2016-09-15] MEDS: MVI/MINERALS LIQUID (CEROVITE) GT SCH (09:28)
[2016-09-15] MEDS: ASPIRIN 81 MG TAB.CHEW GT SCH (09:28)
[2016-09-15] MEDS: CALCIUM CARBONATE 500 MG TAB.CHEW GT SCH ×2 (09:28→16:53)
[2016-09-15] MEDS: TRILEPTAL GT SCH ×2 (09:28→20:15)
[2016-09-15] MEDS: ACIDOPHILUS/BULGARICUS 1 EACH TAB.CHEW GT SCH ×2 (09:28→16:53)
[2016-09-15] MEDS: PROSOURCE / PROSTAT (PYXIS) 30 ML UDC GT SCH ×2 (09:28→16:53)
[2016-09-15] MEDS: LEVETIRACETAM SOL (5 ML) 100 MG/ML UDC GT SCH ×2 (09:28→20:16)
[2016-09-15] MEDS: INSULIN REGULAR, HUMAN 100 UNIT/ML 3 ML VIAL SQ PRN ×2 (11:58→18:25)
--- NOTE | 2016-09-15 13:00 | NUR ---
Anna MONTANA came, made aware of BMP results BUN 47, CREAT 1.7, She ordered to do CBC today. Noted and carried out.
[2016-09-15 14:54] LABS: BASOPHILS # (AUTO) 0.1 /CMM (0.0-0.2); BASOPHILS % (AUTO) 0.3 % (0.0-2.0); EOSINOPHILS # (AUTO) 0.9 /CMM (0.0-0.7); HEMATOCRIT 22 % (33-45); HEMOGLOBIN 7.3 g/dL (11.5-14.8); LYMPHOCYTES # (AUTO) 3.3 /CMM (0.8-4.8); LYMPHOCYTES % (AUTO) 18.6 % (20.0-44.0); MEAN CORPUSCULAR HEMOGLOBIN 32 PG (26.0-33.0); MEAN CORPUSCULAR HGB CONC 33 g/dl (31.0-36.0); MEAN CORPUSCULAR VOLUME 97 fL (82-100); MONOCYTES # (AUTO) 1.1 /CMM (0.1-1.30); MONOCYTES % (AUTO) 6.2 % (2.0-12.0); NEUTROPHILS # (AUTO) 12.5 /CMM (1.8-8.9); NEUTROPHILS % (AUTO) 69.9 % (43.0-81.0); PLATELET COUNT (AUTO) 656 /CMM (150-450); RDW COEFFICIENT OF VARIATION 21.1 (11.5-15.0); RED BLOOD CELL COUNT(AUTO) 2.27 MIL/uL (4.0-5.2); WHITE BLOOD COUNT (AUTO) 17.9 K/uL (4.3-11.0)
--- NOTE | 2016-09-15 15:38 | NUR ---
Relayed CBC results to Anna MONTANA, she ordered Occult Blood and CBC arvin. in am (09/16/2016).
[2016-09-15 19:45] VITALS: BP 111/51
[2016-09-16] VITALS (12 sets, daily range): BP systolic 101–132; BP diastolic 55–81
[2016-09-16] MEDS: GLYTROL 1,000 ML BAG GT PRN ×2 (01:05→20:50)
[2016-09-16] MEDS: ALBUTEROL FS 2.5 MG/3 ML VIAL.NEB NEB SCH ×6 (04:10→23:15)
[2016-09-16] MEDS: DEXILANT 30 MG GT SCH (05:09)
[2016-09-16] MEDS: BLOOD SUGAR DIAGNOSTIC 1 EACH STRIP IN SCH ×4 (05:26→23:20)
[2016-09-16 08:15] LABS: BASOPHILS % (AUTO) 0.3 % (0.0-2.0); EOSINOPHILS # (AUTO) 0.9 /CMM (0.0-0.7); EOSINOPHILS % (AUTO) 6.2 % (0.0-6.0); HEMATOCRIT 21 % (33-45); LYMPHOCYTES # (AUTO) 2.9 /CMM (0.8-4.8); LYMPHOCYTES % (AUTO) 19.7 % (20.0-44.0); MEAN CORPUSCULAR HEMOGLOBIN 32 PG (26.0-33.0); MEAN CORPUSCULAR HGB CONC 34 g/dl (31.0-36.0); MEAN CORPUSCULAR VOLUME 95 fL (82-100); MONOCYTES # (AUTO) 1.1 /CMM (0.1-1.30); MONOCYTES % (AUTO) 7.6 % (2.0-12.0); NEUTROPHILS # (AUTO) 9.7 /CMM (1.8-8.9); NEUTROPHILS % (AUTO) 66.2 % (43.0-81.0); PLATELET COUNT (AUTO) 660 /CMM (150-450); RDW COEFFICIENT OF VARIATION 21.1 (11.5-15.0); RED BLOOD CELL COUNT(AUTO) 2.16 MIL/uL (4.0-5.2); WHITE BLOOD COUNT (AUTO) 14.6 K/uL (4.3-11.0)
[2016-09-16 08:27] LABS: HEMOGLOBIN 6.9 g/dL (11.5-14.8)
[2016-09-16] MEDS: MEROPENEM 500 MG in IV NS 0.9% 50 ML IV SCH ×2 (08:35→21:00)
--- NOTE | 2016-09-16 08:57 | NUR ---
Hgb [address] Felix. Received order to give 2 units of PRBC. Called pt's sister Beckie to notify her of new order, but she did not slat pickler the call. Left her a message.
[2016-09-16] MEDS: MINERAL OIL/PETROLATUM,WHITE 454 GM JAR TP SCH ×2 (09:00→20:09)
[2016-09-16] MEDS: HYDROGEN PEROXIDE 480 ML BOTTLE TP SCH ×2 (09:00→20:09)
[2016-09-16] MEDS: HYDROGEL DRESSING 90 GM TUBE TP SCH ×2 (09:00→20:09)
[2016-09-16] MEDS: Z GUARD REMEDY 4 OZ OINT TP SCH ×2 (09:00→20:09)
[2016-09-16] MEDS: ACIDOPHILUS/BULGARICUS 1 EACH TAB.CHEW GT SCH ×2 (09:25→17:00)
[2016-09-16] MEDS: PROSOURCE / PROSTAT (PYXIS) 30 ML UDC GT SCH ×2 (09:25→17:00)
[2016-09-16] MEDS: TRILEPTAL GT SCH ×2 (09:25→20:09)
[2016-09-16] MEDS: CALCIUM CARBONATE 500 MG TAB.CHEW GT SCH ×2 (09:25→17:00)
[2016-09-16] MEDS: ASPIRIN 81 MG TAB.CHEW GT SCH (09:25)
[2016-09-16] MEDS: MVI/MINERALS LIQUID (CEROVITE) GT SCH (09:25)
[2016-09-16] MEDS: LEVETIRACETAM SOL (5 ML) 100 MG/ML UDC GT SCH ×2 (09:25→20:09)
[2016-09-16] MEDS: ASCORBIC ACID 500 MG TABLET GT SCH (09:26)
--- NOTE | 2016-09-16 11:06 | NUR ---
Started transfusing first unit of PRBC. Pt awake, no distress noted. BP 101/61 HR 97 T 98.5 F R 16.
--- NOTE | 2016-09-16 11:24 | NUR ---
No adverse reactions to blood transfusion noted.
[2016-09-16 11:37] LABS: BAND % (MANUAL) 3 % (0.0-5.0); EOSINOPHILS % (MANUAL) 3 % (0-4); LYMPHOCYTES % (MANUAL) 14 % (16-48); MONOCYTES % (MANUAL) 4 % (0-11.0); NEUTROPHILS % (MANUAL) 76 (42-76)
[2016-09-16] MEDS: INSULIN REGULAR, HUMAN 100 UNIT/ML 3 ML VIAL SQ PRN ×2 (12:16→18:19)
--- NOTE | 2016-09-16 13:25 | NUR ---
Transfused first unit of PRBC. No adverse reaction to blood transfusion noted.
--- NOTE | 2016-09-16 14:05 | NUR ---
Started transfusing second unit of PRBC.
--- NOTE | 2016-09-16 16:42 | NUR ---
Completed blood transfusion of 2 units of PRBC. No adverse reactions noted. Pt awake throughout blood transfusion.
[2016-09-17] MEDS: ALBUTEROL FS 2.5 MG/3 ML VIAL.NEB NEB SCH ×6 (03:33→23:46)
[2016-09-17] MEDS: DEXILANT 30 MG GT SCH (05:07)
[2016-09-17] MEDS: BLOOD SUGAR DIAGNOSTIC 1 EACH STRIP IN SCH ×4 (05:27→23:32)
[2016-09-17 08:03] VITALS: BP 110/70
[2016-09-17] MEDS: MVI/MINERALS LIQUID (CEROVITE) GT SCH (08:36)
[2016-09-17] MEDS: ACIDOPHILUS/BULGARICUS 1 EACH TAB.CHEW GT SCH ×2 (08:36→17:25)
[2016-09-17] MEDS: LEVETIRACETAM SOL (5 ML) 100 MG/ML UDC GT SCH ×2 (08:36→20:11)
[2016-09-17] MEDS: ASPIRIN 81 MG TAB.CHEW GT SCH (08:36)
[2016-09-17] MEDS: TRILEPTAL GT SCH ×2 (08:36→20:11)
[2016-09-17] MEDS: CALCIUM CARBONATE 500 MG TAB.CHEW GT SCH ×2 (08:37→17:25)
[2016-09-17] MEDS: PROSOURCE / PROSTAT (PYXIS) 30 ML UDC GT SCH ×2 (08:37→17:25)
[2016-09-17] MEDS: ASCORBIC ACID 500 MG TABLET GT SCH (08:37)
[2016-09-17] MEDS: Z GUARD REMEDY 4 OZ OINT TP SCH ×2 (08:41→20:11)
[2016-09-17] MEDS: HYDROGEL DRESSING 90 GM TUBE TP SCH ×2 (08:41→20:11)
[2016-09-17] MEDS: MINERAL OIL/PETROLATUM,WHITE 454 GM JAR TP SCH ×2 (08:41→20:11)
[2016-09-17] MEDS: HYDROGEN PEROXIDE 480 ML BOTTLE TP SCH ×2 (08:41→20:11)
[2016-09-17] MEDS: MEROPENEM 500 MG in IV NS 0.9% 50 ML IV SCH (09:46)
[2016-09-17] MEDS: GLYTROL 1,000 ML BAG GT PRN (11:25)
--- NOTE | 2016-09-17 11:30 | NUR ---
Called Gertrude FLUX CORE WELDER asking for the stop date of Merrem 500mg IV Q12 for UTI FLUX CORE WELDER Gertrude ordered a total of 7 days orders noted and carried out.
[2016-09-18] MEDS: ALBUTEROL FS 2.5 MG/3 ML VIAL.NEB NEB SCH ×6 (03:43→23:54)
[2016-09-18] MEDS: DEXILANT 30 MG GT SCH (05:22)
[2016-09-18] MEDS: BLOOD SUGAR DIAGNOSTIC 1 EACH STRIP IN SCH ×3 (05:41→18:23)
[2016-09-18 08:00] VITALS: BP 129/78
[2016-09-18] MEDS: ACIDOPHILUS/BULGARICUS 1 EACH TAB.CHEW GT SCH ×2 (08:16→16:25)
[2016-09-18] MEDS: LEVETIRACETAM SOL (5 ML) 100 MG/ML UDC GT SCH ×2 (08:16→20:51)
[2016-09-18] MEDS: ASPIRIN 81 MG TAB.CHEW GT SCH (08:16)
[2016-09-18] MEDS: ASCORBIC ACID 500 MG TABLET GT SCH (08:16)
[2016-09-18] MEDS: TRILEPTAL GT SCH ×2 (08:16→20:51)
[2016-09-18] MEDS: MVI/MINERALS LIQUID (CEROVITE) GT SCH (08:16)
[2016-09-18] MEDS: CALCIUM CARBONATE 500 MG TAB.CHEW GT SCH ×2 (08:16→16:25)
[2016-09-18] MEDS: PROSOURCE / PROSTAT (PYXIS) 30 ML UDC GT SCH ×2 (08:16→16:25)
[2016-09-18] MEDS: MINERAL OIL/PETROLATUM,WHITE 454 GM JAR TP SCH ×2 (08:17→20:51)
[2016-09-18] MEDS: HYDROGEN PEROXIDE 480 ML BOTTLE TP SCH ×2 (08:17→20:51)
[2016-09-18] MEDS: Z GUARD REMEDY 4 OZ OINT TP SCH ×2 (08:17→20:52)
[2016-09-18] MEDS: HYDROGEL DRESSING 90 GM TUBE TP SCH ×2 (08:17→20:51)
[2016-09-18] MEDS: CODEINE/PROMETHAZINE HCL 5 ML UDC GT PRN (11:16)
[2016-09-18] MEDS: GLYTROL 1,000 ML BAG GT PRN (14:51)
[2016-09-18 20:03] VITALS: BP 112/79
[2016-09-19] MEDS: INSULIN REGULAR, HUMAN 100 UNIT/ML 3 ML VIAL SQ PRN ×2 (00:56→05:39)
[2016-09-19] MEDS: BLOOD SUGAR DIAGNOSTIC 1 EACH STRIP IN SCH ×5 (00:56→23:19)
[2016-09-19] MEDS: GLYTROL 1,000 ML BAG GT PRN (03:04)
[2016-09-19] MEDS: ALBUTEROL FS 2.5 MG/3 ML VIAL.NEB NEB SCH ×5 (03:33→20:08)
[2016-09-19] MEDS: DEXILANT 30 MG GT SCH (05:39)
[2016-09-19 07:55] VITALS: BP 115/78
[2016-09-19] MEDS: ASPIRIN 81 MG TAB.CHEW GT SCH (09:04)
[2016-09-19] MEDS: TRILEPTAL GT SCH ×2 (09:05→20:59)
[2016-09-19] MEDS: ASCORBIC ACID 500 MG TABLET GT SCH (09:06)
[2016-09-19] MEDS: LEVETIRACETAM SOL (5 ML) 100 MG/ML UDC GT SCH ×2 (09:06→20:59)
[2016-09-19] MEDS: ACIDOPHILUS/BULGARICUS 1 EACH TAB.CHEW GT SCH ×2 (09:06→16:33)
[2016-09-19] MEDS: PROSOURCE / PROSTAT (PYXIS) 30 ML UDC GT SCH ×2 (09:06→16:33)
[2016-09-19] MEDS: CALCIUM CARBONATE 500 MG TAB.CHEW GT SCH ×2 (09:06→16:33)
[2016-09-19] MEDS: MVI/MINERALS LIQUID (CEROVITE) GT SCH (09:06)
[2016-09-19] MEDS: Z GUARD REMEDY 4 OZ OINT TP SCH ×2 (09:08→20:59)
[2016-09-19] MEDS: HYDROGEN PEROXIDE 480 ML BOTTLE TP SCH ×2 (09:08→20:59)
[2016-09-19] MEDS: MINERAL OIL/PETROLATUM,WHITE 454 GM JAR TP SCH ×2 (09:08→20:59)
[2016-09-19] MEDS: HYDROGEL DRESSING 90 GM TUBE TP SCH ×2 (09:08→20:59)
--- NOTE | 2016-09-19 13:58 | NUR ---
IDT meeting held. Pt's sister was unable to attend. Pt was given 2 units of PRBC on , Dr. Felix ordered to check H & H on 09/22/16.
[2016-09-19 20:02] VITALS: BP 111/68
[2016-09-19] MEDS: VITAMINS A AND D 56.7 GM TUBE TP SCH (20:59)
[2016-09-20] MEDS: ALBUTEROL FS 2.5 MG/3 ML VIAL.NEB NEB SCH ×7 (00:07→23:21)
[2016-09-20] MEDS: GLYTROL 1,000 ML BAG GT PRN ×2 (00:32→18:31)
[2016-09-20] MEDS: DEXILANT 30 MG GT SCH (05:35)
[2016-09-20] MEDS: BLOOD SUGAR DIAGNOSTIC 1 EACH STRIP IN SCH ×4 (05:35→23:54)
[2016-09-20 07:04] LABS: CALCIUM, SERUM 9.7 mg/dL (8.5-10.1); CREATININE 1.4 mg/dL (0.6-1.3); MAGNESIUM 2.4 mg/dL (1.8-2.4); PHOSPHORUS 4.5 mg/dL (2.5-4.9); POTASSIUM 3.5 mmol/L (3.5-5.1)
[2016-09-20 07:58] VITALS: BP 115/55
[2016-09-20] MEDS: ASPIRIN 81 MG TAB.CHEW GT SCH (08:53)
[2016-09-20] MEDS: PROSOURCE / PROSTAT (PYXIS) 30 ML UDC GT SCH ×2 (08:53→17:00)
[2016-09-20] MEDS: ASCORBIC ACID 500 MG TABLET GT SCH (08:53)
[2016-09-20] MEDS: CALCIUM CARBONATE 500 MG TAB.CHEW GT SCH ×2 (08:53→17:00)
[2016-09-20] MEDS: LEVETIRACETAM SOL (5 ML) 100 MG/ML UDC GT SCH ×2 (08:53→21:03)
[2016-09-20] MEDS: ACIDOPHILUS/BULGARICUS 1 EACH TAB.CHEW GT SCH ×2 (08:53→17:00)
[2016-09-20] MEDS: TRILEPTAL GT SCH ×2 (08:53→21:03)
[2016-09-20] MEDS: MVI/MINERALS LIQUID (CEROVITE) GT SCH (08:53)
[2016-09-20 09:13] LABS: BASOPHILS # (AUTO) 0.1 /CMM (0.0-0.2); BASOPHILS % (AUTO) 0.4 % (0.0-2.0); EOSINOPHILS # (AUTO) 0.6 /CMM (0.0-0.7); EOSINOPHILS % (AUTO) 4.2 % (0.0-6.0); HEMATOCRIT 30 % (33-45); HEMOGLOBIN 10.3 g/dL (11.5-14.8); LYMPHOCYTES # (AUTO) 2.3 /CMM (0.8-4.8); LYMPHOCYTES % (AUTO) 17.4 % (20.0-44.0); MEAN CORPUSCULAR HEMOGLOBIN 31 PG (26.0-33.0); MEAN CORPUSCULAR HGB CONC 34 g/dl (31.0-36.0); MEAN CORPUSCULAR VOLUME 92 fL (82-100); MONOCYTES # (AUTO) 1.2 /CMM (0.1-1.30); MONOCYTES % (AUTO) 9.1 % (2.0-12.0); NEUTROPHILS % (AUTO) 68.9 % (43.0-81.0); PLATELET COUNT (AUTO) 605 /CMM (150-450); RDW COEFFICIENT OF VARIATION 18.9 (11.5-15.0); RED BLOOD CELL COUNT(AUTO) 3.28 MIL/uL (4.0-5.2); WHITE BLOOD COUNT (AUTO) 13.1 K/uL (4.3-11.0)
[2016-09-20] MEDS: VITAMINS A AND D 56.7 GM TUBE TP SCH ×2 (12:15→21:04)
[2016-09-20] MEDS: MINERAL OIL/PETROLATUM,WHITE 454 GM JAR TP SCH ×2 (12:15→21:03)
[2016-09-20] MEDS: HYDROGEL DRESSING 90 GM TUBE TP SCH ×2 (12:15→21:03)
[2016-09-20] MEDS: HYDROGEN PEROXIDE 480 ML BOTTLE TP SCH ×2 (12:15→21:03)
[2016-09-20] MEDS: Z GUARD REMEDY 4 OZ OINT TP SCH ×2 (12:15→21:03)
--- NOTE | 2016-09-20 14:59 | NUR ---
Relayed lab result to Dr. Montaño. Order obtained for repeat CBC on Thursday. Order noted and carried out.
[2016-09-20 19:41] VITALS: BP 136/88
[2016-09-20] MEDS: NYSTATIN TOP POWDER 15 GM BOTTLE TP SCH (21:03)
[2016-09-21] MEDS: LORAZEPAM 1 MG TABLET GT PRN (00:20)
--- NOTE | 2016-09-21 00:25 | NUR ---
DIET THERAPIST NOTES: PT NOTED WITH EPISODE OF SEIZURE LASTED 10 SECONDS. SEIZURE PRECAUTIONS OBSERVED, NO S/S OF INJURY NOTED. PT REMAINS AWAKE AFTER EPISODE. NO RESPIRATORY DISTRESS. CHARGE NURSE MADE AWARE. PRN ATIVAN 1 MG GIVEN. WILL CONTINUE TO MONITOR.
[2016-09-21] MEDS: ALBUTEROL FS 2.5 MG/3 ML VIAL.NEB NEB SCH ×6 (03:13→23:26)
[2016-09-21] MEDS: BLOOD SUGAR DIAGNOSTIC 1 EACH STRIP IN SCH ×4 (05:38→23:33)
[2016-09-21] MEDS: DEXILANT 30 MG GT SCH (05:38)
[2016-09-21 08:00] VITALS: BP 142/76
[2016-09-21] MEDS: MINERAL OIL/PETROLATUM,WHITE 454 GM JAR TP SCH (09:48)
[2016-09-21] MEDS: ACIDOPHILUS/BULGARICUS 1 EACH TAB.CHEW GT SCH ×2 (09:48→17:36)
[2016-09-21] MEDS: HYDROGEL DRESSING 90 GM TUBE TP SCH ×2 (09:48→21:04)
[2016-09-21] MEDS: MVI/MINERALS LIQUID (CEROVITE) GT SCH (09:48)
[2016-09-21] MEDS: PROSOURCE / PROSTAT (PYXIS) 30 ML UDC GT SCH ×2 (09:48→17:36)
[2016-09-21] MEDS: ASCORBIC ACID 500 MG TABLET GT SCH (09:48)
[2016-09-21] MEDS: ASPIRIN 81 MG TAB.CHEW GT SCH (09:48)
[2016-09-21] MEDS: CALCIUM CARBONATE 500 MG TAB.CHEW GT SCH ×2 (09:48→17:36)
[2016-09-21] MEDS: TRILEPTAL GT SCH ×2 (09:48→21:04)
[2016-09-21] MEDS: LEVETIRACETAM SOL (5 ML) 100 MG/ML UDC GT SCH ×2 (09:48→21:04)
[2016-09-21] MEDS: VITAMINS A AND D 56.7 GM TUBE TP SCH ×2 (09:49→21:04)
[2016-09-21] MEDS: NYSTATIN TOP POWDER 15 GM BOTTLE TP SCH ×2 (09:49→21:04)
[2016-09-21] MEDS: HYDROGEN PEROXIDE 480 ML BOTTLE TP SCH ×2 (09:49→21:04)
[2016-09-21] MEDS: Z GUARD REMEDY 4 OZ OINT TP SCH ×2 (09:49→21:04)
[2016-09-21 19:40] VITALS: BP 117/65
[2016-09-22] MEDS: ALBUTEROL FS 2.5 MG/3 ML VIAL.NEB NEB SCH ×6 (04:18→23:40)
[2016-09-22] MEDS: BLOOD SUGAR DIAGNOSTIC 1 EACH STRIP IN SCH ×4 (05:29→23:28)
[2016-09-22] MEDS: DEXILANT 30 MG GT SCH (05:29)
[2016-09-22 06:52] LABS: BASOPHILS # (AUTO) 0.1 /CMM (0.0-0.2); BASOPHILS % (AUTO) 0.5 % (0.0-2.0); EOSINOPHILS # (AUTO) 0.7 /CMM (0.0-0.7); EOSINOPHILS % (AUTO) 7.4 % (0.0-6.0); HEMATOCRIT 34 % (33-45); HEMOGLOBIN 11.5 g/dL (11.5-14.8); LYMPHOCYTES # (AUTO) 2.8 /CMM (0.8-4.8); LYMPHOCYTES % (AUTO) 28.4 % (20.0-44.0); MEAN CORPUSCULAR HEMOGLOBIN 31 PG (26.0-33.0); MEAN CORPUSCULAR HGB CONC 34 g/dl (31.0-36.0); MEAN CORPUSCULAR VOLUME 93 fL (82-100); MONOCYTES % (AUTO) 9.7 % (2.0-12.0); NEUTROPHILS # (AUTO) 5.4 /CMM (1.8-8.9); PLATELET COUNT (AUTO) 542 /CMM (150-450); RED BLOOD CELL COUNT(AUTO) 3.67 MIL/uL (4.0-5.2)
[2016-09-22 07:17] LABS: CALCIUM, SERUM 9.8 mg/dL (8.5-10.1); CREATININE 1.5 mg/dL (0.6-1.3); POTASSIUM 3.9 mmol/L (3.5-5.1)
[2016-09-22 07:55] VITALS: BP 126/76
[2016-09-22] MEDS: ASCORBIC ACID 500 MG TABLET GT SCH (09:58)
[2016-09-22] MEDS: LEVETIRACETAM SOL (5 ML) 100 MG/ML UDC GT SCH ×2 (09:58→21:00)
[2016-09-22] MEDS: ASPIRIN 81 MG TAB.CHEW GT SCH (09:58)
[2016-09-22] MEDS: TRILEPTAL GT SCH ×2 (09:58→21:00)
[2016-09-22] MEDS: MVI/MINERALS LIQUID (CEROVITE) GT SCH (09:58)
[2016-09-22] MEDS: PROSOURCE / PROSTAT (PYXIS) 30 ML UDC GT SCH ×2 (09:58→17:00)
[2016-09-22] MEDS: ACIDOPHILUS/BULGARICUS 1 EACH TAB.CHEW GT SCH ×2 (09:58→17:00)
[2016-09-22] MEDS: CALCIUM CARBONATE 500 MG TAB.CHEW GT SCH ×2 (09:58→17:00)
[2016-09-22] MEDS: GLYTROL 1,000 ML BAG GT PRN (10:13)
--- NOTE | 2016-09-22 12:19 | NUR ---
Called NAN Loredo patient completed ATB therapy needs Urine C and S for ESBL clearance. Okay with Gertrude to do urine C and S. Noted and carried out.
[2016-09-22] MEDS: NYSTATIN TOP POWDER 15 GM BOTTLE TP SCH ×2 (13:15→21:00)
[2016-09-22] MEDS: HYDROGEN PEROXIDE 480 ML BOTTLE TP SCH ×2 (13:15→21:00)
[2016-09-22] MEDS: VITAMINS A AND D 56.7 GM TUBE TP SCH ×2 (13:15→21:00)
[2016-09-22] MEDS: Z GUARD REMEDY 4 OZ OINT TP SCH ×2 (13:15→21:00)
[2016-09-22] MEDS: HYDROGEL DRESSING 90 GM TUBE TP SCH ×2 (13:15→21:00)
--- NOTE | 2016-09-22 15:36 | NUR ---
Collected specimen urine C and S and sent to lab.
[2016-09-22 19:38] VITALS: BP 101/65
[2016-09-23] MEDS: ALBUTEROL FS 2.5 MG/3 ML VIAL.NEB NEB SCH ×6 (03:30→22:39)
[2016-09-23] MEDS: BLOOD SUGAR DIAGNOSTIC 1 EACH STRIP IN SCH ×4 (05:31→23:50)
[2016-09-23] MEDS: DEXILANT 30 MG GT SCH (05:31)
--- NOTE | 2016-09-23 07:43 | NUR ---
Received female fariha pt on mechanical vent. Pt fariha is secure. Vent is plugged into a red outlet, alarms are set and audible. BVM is at bedside. Addendum: 09/23/16 at 0801 by MARKIE PINO RT Amended: Links added.
[2016-09-23 08:04] VITALS: BP 124/74
[2016-09-23] MEDS: PROSOURCE / PROSTAT (PYXIS) 30 ML UDC GT SCH ×2 (09:29→16:24)
[2016-09-23] MEDS: ACIDOPHILUS/BULGARICUS 1 EACH TAB.CHEW GT SCH ×2 (09:29→16:24)
[2016-09-23] MEDS: CALCIUM CARBONATE 500 MG TAB.CHEW GT SCH ×2 (09:29→16:24)
[2016-09-23] MEDS: TRILEPTAL GT SCH ×2 (09:29→21:01)
[2016-09-23] MEDS: ASCORBIC ACID 500 MG TABLET GT SCH (09:29)
[2016-09-23] MEDS: LEVETIRACETAM SOL (5 ML) 100 MG/ML UDC GT SCH ×2 (09:29→20:56)
[2016-09-23] MEDS: ASPIRIN 81 MG TAB.CHEW GT SCH (09:29)
[2016-09-23] MEDS: MVI/MINERALS LIQUID (CEROVITE) GT SCH (09:29)
[2016-09-23] MEDS: HYDROGEN PEROXIDE 480 ML BOTTLE TP SCH ×2 (12:30→20:58)
[2016-09-23] MEDS: HYDROGEL DRESSING 90 GM TUBE TP SCH ×2 (12:30→20:58)
[2016-09-23] MEDS: NYSTATIN TOP POWDER 15 GM BOTTLE TP SCH ×2 (12:30→21:11)
[2016-09-23] MEDS: Z GUARD REMEDY 4 OZ OINT TP SCH ×2 (12:30→21:01)
[2016-09-23] MEDS: VITAMINS A AND D 56.7 GM TUBE TP SCH ×2 (12:30→21:01)
[2016-09-23 19:52] VITALS: BP 103/64
[2016-09-23] MEDS: GLYTROL 1,000 ML BAG GT PRN (21:33)
--- NOTE | 2016-09-23 23:55 | NUR ---
NUCLEAR DESIGN ENGINEER/NOTES BLOOD SUGAR 116 NO INSULIN COVERAGES, NO SIGNS OF HYPO GLYCEMIA NOTED. PT STILL ONN G-TUBE FEEDING.
[2016-09-24] MEDS: ALBUTEROL FS 2.5 MG/3 ML VIAL.NEB NEB SCH ×6 (03:43→23:14)
[2016-09-24] MEDS: DEXILANT 30 MG GT SCH (05:28)
[2016-09-24] MEDS: BLOOD SUGAR DIAGNOSTIC 1 EACH STRIP IN SCH ×4 (05:29→23:59)
--- NOTE | 2016-09-24 06:20 | NUR ---
seismic engineer/notes blood sugar 133 no insulin coverages given , no signs of hypo/hyper glycemia noted. pt still with feeding tube
--- NOTE | 2016-09-24 06:54 | NUR ---
weather reporter/closing notes pt resting comfortably in bed without any acute distress noted. all due meds given and all needs met. stable tong the night, kept her warm and comfortable at all times. will endorse to am nurse for continuity of care.
[2016-09-24 07:45] VITALS: BP 127/75
[2016-09-24] MEDS: MVI/MINERALS LIQUID (CEROVITE) GT SCH (09:00)
[2016-09-24] MEDS: ASPIRIN 81 MG TAB.CHEW GT SCH (09:40)
[2016-09-24] MEDS: ACIDOPHILUS/BULGARICUS 1 EACH TAB.CHEW GT SCH ×2 (09:41→17:43)
[2016-09-24] MEDS: PROSOURCE / PROSTAT (PYXIS) 30 ML UDC GT SCH ×2 (09:41→17:44)
[2016-09-24] MEDS: LEVETIRACETAM SOL (5 ML) 100 MG/ML UDC GT SCH ×2 (09:41→21:26)
[2016-09-24] MEDS: ASCORBIC ACID 500 MG TABLET GT SCH (09:42)
[2016-09-24] MEDS: Z GUARD REMEDY 4 OZ OINT TP SCH ×2 (09:42→21:26)
[2016-09-24] MEDS: VITAMINS A AND D 56.7 GM TUBE TP SCH ×2 (09:42→21:26)
[2016-09-24] MEDS: HYDROGEN PEROXIDE 480 ML BOTTLE TP SCH ×2 (09:42→21:26)
[2016-09-24] MEDS: HYDROGEL DRESSING 90 GM TUBE TP SCH ×2 (09:42→21:26)
[2016-09-24] MEDS: CALCIUM CARBONATE 500 MG TAB.CHEW GT SCH ×2 (09:42→17:44)
[2016-09-24] MEDS: NYSTATIN TOP POWDER 15 GM BOTTLE TP SCH ×2 (09:42→21:26)
[2016-09-24] MEDS: TRILEPTAL GT SCH ×2 (09:44→21:26)
[2016-09-24] MEDS: GLYTROL 1,000 ML BAG GT PRN (17:42)
[2016-09-24 19:40] VITALS: BP 110/62
[2016-09-24] MEDS: INSULIN REGULAR, HUMAN 100 UNIT/ML 3 ML VIAL SQ PRN (23:59)
[2016-09-25] MEDS: ALBUTEROL FS 2.5 MG/3 ML VIAL.NEB NEB SCH ×6 (03:09→23:20)
[2016-09-25] MEDS: DEXILANT 30 MG GT SCH (05:52)
[2016-09-25] MEDS: INSULIN REGULAR, HUMAN 100 UNIT/ML 3 ML VIAL SQ PRN ×2 (05:52→23:31)
[2016-09-25] MEDS: BLOOD SUGAR DIAGNOSTIC 1 EACH STRIP IN SCH ×4 (05:52→23:31)
[2016-09-25 07:30] VITALS: BP 117/74
[2016-09-25] MEDS: ASCORBIC ACID 500 MG TABLET GT SCH (09:26)
[2016-09-25] MEDS: TRILEPTAL GT SCH ×2 (09:26→20:32)
[2016-09-25] MEDS: HYDROGEN PEROXIDE 480 ML BOTTLE TP SCH ×2 (09:26→20:33)
[2016-09-25] MEDS: CALCIUM CARBONATE 500 MG TAB.CHEW GT SCH ×2 (09:26→17:06)
[2016-09-25] MEDS: HYDROGEL DRESSING 90 GM TUBE TP SCH ×2 (09:26→20:32)
[2016-09-25] MEDS: ACIDOPHILUS/BULGARICUS 1 EACH TAB.CHEW GT SCH ×2 (09:26→17:06)
[2016-09-25] MEDS: VITAMINS A AND D 56.7 GM TUBE TP SCH ×2 (09:26→20:34)
[2016-09-25] MEDS: Z GUARD REMEDY 4 OZ OINT TP SCH ×2 (09:26→20:34)
[2016-09-25] MEDS: NYSTATIN TOP POWDER 15 GM BOTTLE TP SCH ×2 (09:26→20:33)
[2016-09-25] MEDS: MVI/MINERALS LIQUID (CEROVITE) GT SCH (09:26)
[2016-09-25] MEDS: ASPIRIN 81 MG TAB.CHEW GT SCH (09:26)
[2016-09-25] MEDS: LEVETIRACETAM SOL (5 ML) 100 MG/ML UDC GT SCH ×2 (09:26→20:32)
[2016-09-25] MEDS: PROSOURCE / PROSTAT (PYXIS) 30 ML UDC GT SCH ×2 (09:26→17:06)
[2016-09-25 19:38] VITALS: BP 108/56
[2016-09-26] MEDS: ALBUTEROL FS 2.5 MG/3 ML VIAL.NEB NEB SCH ×6 (03:32→23:40)
[2016-09-26] MEDS: INSULIN REGULAR, HUMAN 100 UNIT/ML 3 ML VIAL SQ PRN ×2 (06:14→23:24)
[2016-09-26] MEDS: BLOOD SUGAR DIAGNOSTIC 1 EACH STRIP IN SCH ×4 (06:14→23:24)
[2016-09-26] MEDS: DEXILANT 30 MG GT SCH (06:14)
[2016-09-26] MEDS: GLYTROL 1,000 ML BAG GT PRN ×2 (07:46→21:10)
[2016-09-26 07:54] VITALS: BP 106/59
[2016-09-26] MEDS: MAGNESIUM HYDROXIDE 30 ML UDC GT PRN (08:00)
[2016-09-26] MEDS: ASCORBIC ACID 500 MG TABLET GT SCH (08:01)
[2016-09-26] MEDS: ASPIRIN 81 MG TAB.CHEW GT SCH (08:01)
[2016-09-26] MEDS: LEVETIRACETAM SOL (5 ML) 100 MG/ML UDC GT SCH ×2 (08:01→21:08)
[2016-09-26] MEDS: MVI/MINERALS LIQUID (CEROVITE) GT SCH (08:01)
[2016-09-26] MEDS: TRILEPTAL GT SCH ×2 (08:01→21:08)
[2016-09-26] MEDS: Z GUARD REMEDY 4 OZ OINT TP SCH ×2 (08:01→21:09)
[2016-09-26] MEDS: HYDROGEN PEROXIDE 480 ML BOTTLE TP SCH ×2 (08:01→21:09)
[2016-09-26] MEDS: HYDROGEL DRESSING 90 GM TUBE TP SCH ×2 (08:01→21:09)
[2016-09-26] MEDS: NYSTATIN TOP POWDER 15 GM BOTTLE TP SCH ×2 (08:01→21:09)
[2016-09-26] MEDS: PROSOURCE / PROSTAT (PYXIS) 30 ML UDC GT SCH ×2 (08:01→17:01)
[2016-09-26] MEDS: VITAMINS A AND D 56.7 GM TUBE TP SCH ×2 (08:01→21:09)
[2016-09-26] MEDS: CALCIUM CARBONATE 500 MG TAB.CHEW GT SCH ×2 (08:01→17:02)
[2016-09-26] MEDS: ACIDOPHILUS/BULGARICUS 1 EACH TAB.CHEW GT SCH ×2 (08:01→17:01)
--- NOTE | 2016-09-26 08:21 | NUR ---
Informed sister that dentist will be coming Thursday and asked her if she wanted to proceed with the cleaning. She stated that yes she would like to proceed with dental cleaning and will try to be here on Thursday to help him. She also stated that she will buy her some oatmeal body wash and lotion.
[2016-09-26 08:25] VITALS: BP 106/59
[2016-09-26] MEDS ORDERED: LEVOFLOXACIN (500MG) 500 MG TABLET GT SCH (19:30)
[2016-09-26 19:49] VITALS: BP 111/69
[2016-09-27] MEDS: ALBUTEROL FS 2.5 MG/3 ML VIAL.NEB NEB SCH ×6 (03:33→23:59)
[2016-09-27] MEDS: BLOOD SUGAR DIAGNOSTIC 1 EACH STRIP IN SCH ×4 (05:18→23:25)
[2016-09-27] MEDS: DEXILANT 30 MG GT SCH (05:18)
[2016-09-27] MEDS: INSULIN REGULAR, HUMAN 100 UNIT/ML 3 ML VIAL SQ PRN ×2 (05:18→23:25)
[2016-09-27] MEDS: BISACODYL SUPP (10 MG) 10 MG/SUPP.RECT SUPP.RECT RC PRN (06:44)
[2016-09-27 07:48] VITALS: BP 139/63
[2016-09-27] MEDS: TRILEPTAL GT SCH ×2 (09:28→21:35)
[2016-09-27] MEDS: LEVETIRACETAM SOL (5 ML) 100 MG/ML UDC GT SCH ×2 (09:28→21:35)
[2016-09-27] MEDS: PROSOURCE / PROSTAT (PYXIS) 30 ML UDC GT SCH ×2 (09:28→17:00)
[2016-09-27] MEDS: HYDROGEN PEROXIDE 480 ML BOTTLE TP SCH ×2 (09:28→21:36)
[2016-09-27] MEDS: ACIDOPHILUS/BULGARICUS 1 EACH TAB.CHEW GT SCH ×2 (09:28→17:00)
[2016-09-27] MEDS: ASPIRIN 81 MG TAB.CHEW GT SCH (09:28)
[2016-09-27] MEDS: VITAMINS A AND D 56.7 GM TUBE TP SCH ×2 (09:28→21:36)
[2016-09-27] MEDS: Z GUARD REMEDY 4 OZ OINT TP SCH ×2 (09:28→21:36)
[2016-09-27] MEDS: MVI/MINERALS LIQUID (CEROVITE) GT SCH (09:28)
[2016-09-27] MEDS: ASCORBIC ACID 500 MG TABLET GT SCH (09:28)
[2016-09-27] MEDS: CALCIUM CARBONATE 500 MG TAB.CHEW GT SCH ×2 (09:28→17:00)
[2016-09-27] MEDS: NYSTATIN TOP POWDER 15 GM BOTTLE TP SCH ×2 (09:28→21:36)
[2016-09-27] MEDS: HYDROGEL DRESSING 90 GM TUBE TP SCH ×2 (09:28→21:35)
--- NOTE | 2016-09-27 12:50 | NUR ---
Seen and examined by Dr. Montaño, no new order given at this time.
[2016-09-27] MEDS: GLYTROL 1,000 ML BAG GT PRN (14:46)
--- NOTE | 2016-09-27 15:23 | NUR ---
Spoke with Crystal Robles NP ID, covering for BHARGAVI Alexander reported the result of # 2 urine specimen showing E Coli ESBL of urine however resistant to current ATB Levaquin. New order given to DC Levaquin and start patient on Imipenem 1000 mg. IV per pharmacy to dose. Order faxed to both [facility] and [facility]. Awaiting for dosing. Notified resident's sister Beckie of the new ATB order. Appreciated the call.
[2016-09-27] MEDS ORDERED: NS IV SCH (15:30)
[2016-09-27] MEDS ORDERED: PRIMAXIN IV SCH (15:30)
[2016-09-27] MEDS ORDERED: AMIKACIN 750 MG in IV D5W 100 ML IV ONE (18:00)
[2016-09-27] MEDS ORDERED: FOSFOMYCIN TROMETHAMINE 3 G/PKT PACKET GT ONE (18:00)
[2016-09-27] MEDS: MAGNESIUM HYDROXIDE 30 ML UDC GT PRN (18:50)
[2016-09-27 19:32] VITALS: BP 107/66
--- NOTE | 2016-09-27 20:00 | NUR ---
Amikacin 750mg IV was given at 1999. Asked medication from Nurse Verification Specialist. No adverse reaction from ATB noted.
[2016-09-27] MEDS: LEVOFLOXACIN (500MG) 500 MG TABLET GT SCH (21:35)
[2016-09-27] MEDS: DOCUSATE SODIUM LIQ 100 MG/10 ML UDC GT PRN (21:36)
[2016-09-27] MEDS ORDERED: AMIKACIN 250 MG/ML VIAL ONE (22:03)
--- NOTE | 2016-09-28 01:24 | NUR ---
Seen and examined by NAN Rojas with new orders of CBC, BMP and Amikacin to dose by pharmacy today 09/27/16 orders noted and carried out.
[2016-09-28] MEDS ORDERED: DOSING PER PHARMACY-AMIKACI IV XX PRN (01:30)
[2016-09-28] MEDS: ALBUTEROL FS 2.5 MG/3 ML VIAL.NEB NEB SCH ×6 (03:30→23:30)
[2016-09-28] MEDS: DEXILANT 30 MG GT SCH (05:30)
[2016-09-28] MEDS: BLOOD SUGAR DIAGNOSTIC 1 EACH STRIP IN SCH ×4 (05:30→23:33)
[2016-09-28] MEDS: INSULIN REGULAR, HUMAN 100 UNIT/ML 3 ML VIAL SQ PRN (05:30)
[2016-09-28 07:08] LABS: BASOPHILS % (AUTO) 0.2 % (0.0-2.0); EOSINOPHILS # (AUTO) 0.7 /CMM (0.0-0.7); EOSINOPHILS % (AUTO) 3.9 % (0.0-6.0); HEMATOCRIT 29 % (33-45); HEMOGLOBIN 9.7 g/dL (11.5-14.8); LYMPHOCYTES # (AUTO) 2.5 /CMM (0.8-4.8); LYMPHOCYTES % (AUTO) 14.3 % (20.0-44.0); MEAN CORPUSCULAR HEMOGLOBIN 32 PG (26.0-33.0); MEAN CORPUSCULAR HGB CONC 34 g/dl (31.0-36.0); MEAN CORPUSCULAR VOLUME 94 fL (82-100); MONOCYTES # (AUTO) 1.2 /CMM (0.1-1.30); NEUTROPHILS # (AUTO) 13.2 /CMM (1.8-8.9); NEUTROPHILS % (AUTO) 74.6 % (43.0-81.0); PLATELET COUNT (AUTO) 416 /CMM (150-450); RDW COEFFICIENT OF VARIATION 18.5 (11.5-15.0); RED BLOOD CELL COUNT(AUTO) 3.08 MIL/uL (4.0-5.2); WHITE BLOOD COUNT (AUTO) 17.7 K/uL (4.3-11.0)
[2016-09-28 07:11] LABS: CALCIUM, SERUM 9.5 mg/dL (8.5-10.1); CREATININE 1.6 mg/dL (0.6-1.3); POTASSIUM 3.5 mmol/L (3.5-5.1)
[2016-09-28 07:55] VITALS: BP 103/69
[2016-09-28] MEDS: ASPIRIN 81 MG TAB.CHEW GT SCH (09:17)
[2016-09-28] MEDS: ACIDOPHILUS/BULGARICUS 1 EACH TAB.CHEW GT SCH ×2 (09:17→16:45)
[2016-09-28] MEDS: PROSOURCE / PROSTAT (PYXIS) 30 ML UDC GT SCH ×2 (09:17→16:45)
[2016-09-28] MEDS: MVI/MINERALS LIQUID (CEROVITE) GT SCH (09:17)
[2016-09-28] MEDS: TRILEPTAL GT SCH ×2 (09:17→21:02)
[2016-09-28] MEDS: LEVETIRACETAM SOL (5 ML) 100 MG/ML UDC GT SCH ×2 (09:17→21:02)
[2016-09-28] MEDS: HYDROGEL DRESSING 90 GM TUBE TP SCH ×2 (09:18→21:02)
[2016-09-28] MEDS: ASCORBIC ACID 500 MG TABLET GT SCH (09:18)
[2016-09-28] MEDS: Z GUARD REMEDY 4 OZ OINT TP SCH ×2 (09:18→21:03)
[2016-09-28] MEDS: CALCIUM CARBONATE 500 MG TAB.CHEW GT SCH ×2 (09:18→16:45)
[2016-09-28] MEDS: NYSTATIN TOP POWDER 15 GM BOTTLE TP SCH ×2 (09:18→21:02)
[2016-09-28] MEDS: VITAMINS A AND D 56.7 GM TUBE TP SCH ×2 (09:18→21:03)
[2016-09-28] MEDS: HYDROGEN PEROXIDE 480 ML BOTTLE TP SCH ×2 (09:18→21:02)
[2016-09-28] MEDS ORDERED: FEE PK DOSING 1 MIN EA MC ONE (12:17)
--- NOTE | 2016-09-28 14:39 | NUR ---
Resident's sister visiting. Explained urine culture result showing Pseudomonas Aeruginosa from specimen #1 and E. COli ESBL in specimen #2. Currently patient is receiving Levaquin and Amikacin to cover both organisms. Appreciated the information given.
[2016-09-28 19:27] VITALS: BP 116/72
[2016-09-28] MEDS: LEVOFLOXACIN (500MG) 500 MG TABLET GT SCH (21:02)
[2016-09-29] MEDS: ALBUTEROL FS 2.5 MG/3 ML VIAL.NEB NEB SCH ×6 (03:28→23:39)
[2016-09-29] MEDS: BLOOD SUGAR DIAGNOSTIC 1 EACH STRIP IN SCH ×4 (06:15→23:54)
[2016-09-29] MEDS: DEXILANT 30 MG GT SCH (06:15)
[2016-09-29 07:16] LABS: CREATININE 1.7 mg/dL (0.6-1.3); POTASSIUM 4.4 mmol/L (3.5-5.1)
[2016-09-29 08:29] VITALS: BP 119/73
[2016-09-29] MEDS: ASPIRIN 81 MG TAB.CHEW GT SCH (08:46)
[2016-09-29] MEDS: PROSOURCE / PROSTAT (PYXIS) 30 ML UDC GT SCH ×2 (08:47→17:00)
[2016-09-29] MEDS: TRILEPTAL GT SCH ×2 (08:47→21:11)
[2016-09-29] MEDS: CALCIUM CARBONATE 500 MG TAB.CHEW GT SCH ×2 (08:47→17:00)
[2016-09-29] MEDS: MVI/MINERALS LIQUID (CEROVITE) GT SCH (08:47)
[2016-09-29] MEDS: ASCORBIC ACID 500 MG TABLET GT SCH (08:47)
[2016-09-29] MEDS: ACIDOPHILUS/BULGARICUS 1 EACH TAB.CHEW GT SCH ×2 (08:47→17:00)
[2016-09-29] MEDS: LEVETIRACETAM SOL (5 ML) 100 MG/ML UDC GT SCH ×2 (08:47→21:11)
[2016-09-29] MEDS: AMIKACIN 500 MG in IV D5W 100 ML IV SCH (09:00)
--- NOTE | 2016-09-29 09:00 | NUR ---
Called [facility] pharmacy and made aware that patient is due for amikacin at 8 am today, amikacin through level drawn this morning and results not available yet. Spoke to pharmacist Ms. Gigi dennis to give amikacin 500 mg am dose and follow up later amikacin through level.
--- NOTE | 2016-09-29 09:25 | NUR ---
Called resident's sister to see if she was going to be able to come for dental cleaning. She did not answer. Received call back stating that she was not going to be able to make it but dentist can proceed with cleaning. SW was also informed that resident needs a new mitten and STEPHEN informed charge nurse who stated that she will follow up on it.
[2016-09-29] MEDS: Z GUARD REMEDY 4 OZ OINT TP SCH ×2 (14:15→21:12)
[2016-09-29] MEDS: NYSTATIN TOP POWDER 15 GM BOTTLE TP SCH ×2 (14:15→21:12)
--- NOTE | 2016-09-29 16:00 | NUR ---
Amikacin through 3.2 faxed to [facility], spoke to Ms. Yu with order to continue same dose until thu. Collected urine samples for creatinine, urine, eosinophil, urine, urine sodium, random per DR. Ornelas.
--- NOTE | 2016-09-29 16:04 | NUR ---
Notified sister Beckie that resident was not able to tolerate dental cleaning. SW notified her that dentist can try again and that social media manager will schedule again for next month, that way she can be here to help him. Sister appreciated the information and SW will keep her informed of when the dentist will be returning for the cleaning.
[2016-09-29] MEDS: HYDROGEN PEROXIDE 480 ML BOTTLE TP SCH ×2 (16:15→21:12)
[2016-09-29] MEDS: VITAMINS A AND D 56.7 GM TUBE TP SCH ×2 (16:15→21:12)
[2016-09-29] MEDS: HYDROGEL DRESSING 90 GM TUBE TP SCH ×2 (16:15→21:11)
[2016-09-29 18:41] LABS: CREATININE, URINE 58.5 MG/DL (30.0-125.0)
[2016-09-29 20:04] VITALS: BP 117/76
[2016-09-29] MEDS: LEVOFLOXACIN (500MG) 500 MG TABLET GT SCH (21:11)
[2016-09-30] MEDS: ALBUTEROL FS 2.5 MG/3 ML VIAL.NEB NEB SCH ×6 (03:30→23:30)
[2016-09-30] MEDS: DEXILANT 30 MG GT SCH (05:42)
[2016-09-30] MEDS: BLOOD SUGAR DIAGNOSTIC 1 EACH STRIP IN SCH ×3 (05:42→18:31)
[2016-09-30 06:42] LABS: CALCIUM, SERUM 9.6 mg/dL (8.5-10.1); CREATININE 1.8 mg/dL (0.6-1.3); POTASSIUM 3.6 mmol/L (3.5-5.1)
[2016-09-30 08:00] VITALS: BP 128/74
[2016-09-30] MEDS: ASPIRIN 81 MG TAB.CHEW GT SCH (09:26)
[2016-09-30] MEDS: ASCORBIC ACID 500 MG TABLET GT SCH (09:26)
[2016-09-30] MEDS: LEVETIRACETAM SOL (5 ML) 100 MG/ML UDC GT SCH ×2 (09:26→21:08)
[2016-09-30] MEDS: TRILEPTAL GT SCH ×2 (09:26→21:08)
[2016-09-30] MEDS: CALCIUM CARBONATE 500 MG TAB.CHEW GT SCH ×2 (09:26→16:56)
[2016-09-30] MEDS: PROSOURCE / PROSTAT (PYXIS) 30 ML UDC GT SCH ×2 (09:26→16:56)
[2016-09-30] MEDS: MVI/MINERALS LIQUID (CEROVITE) GT SCH (09:26)
[2016-09-30] MEDS: ACIDOPHILUS/BULGARICUS 1 EACH TAB.CHEW GT SCH ×2 (09:26→16:56)
[2016-09-30] MEDS: HYDROGEL DRESSING 90 GM TUBE TP SCH ×2 (10:15→21:08)
[2016-09-30] MEDS: HYDROGEN PEROXIDE 480 ML BOTTLE TP SCH ×2 (10:15→21:08)
[2016-09-30] MEDS: VITAMINS A AND D 56.7 GM TUBE TP SCH ×2 (10:15→21:09)
[2016-09-30] MEDS: Z GUARD REMEDY 4 OZ OINT TP SCH ×2 (10:15→21:09)
[2016-09-30] MEDS: NYSTATIN TOP POWDER 15 GM BOTTLE TP SCH ×2 (10:15→21:09)
[2016-09-30] MEDS: GLYTROL 1,000 ML BAG GT PRN (16:56)
[2016-09-30 20:02] VITALS: BP 120/77
[2016-09-30] MEDS: AMIKACIN 500 MG in IV D5W 100 ML IV SCH (21:00)
[2016-09-30] MEDS: LEVOFLOXACIN (500MG) 500 MG TABLET GT SCH (21:08)
[2016-10-01] MEDS: ALBUTEROL FS 2.5 MG/3 ML VIAL.NEB NEB SCH ×6 (03:26→23:05)
[2016-10-01] MEDS: DEXILANT 30 MG GT SCH (05:51)
[2016-10-01] MEDS: BLOOD SUGAR DIAGNOSTIC 1 EACH STRIP IN SCH ×5 (05:51→23:58)
[2016-10-01 07:46] VITALS: BP 188/75
[2016-10-01] MEDS: PROSOURCE / PROSTAT (PYXIS) 30 ML UDC GT SCH ×2 (09:00→17:13)
[2016-10-01] MEDS: MVI/MINERALS LIQUID (CEROVITE) GT SCH (09:00)
[2016-10-01] MEDS: ACIDOPHILUS/BULGARICUS 1 EACH TAB.CHEW GT SCH ×2 (09:00→17:13)
[2016-10-01] MEDS: CALCIUM CARBONATE 500 MG TAB.CHEW GT SCH ×2 (09:00→17:13)
[2016-10-01] MEDS: ASPIRIN 81 MG TAB.CHEW GT SCH (09:00)
[2016-10-01] MEDS: VITAMINS A AND D 56.7 GM TUBE TP SCH ×2 (09:00→21:21)
[2016-10-01] MEDS: ASCORBIC ACID 500 MG TABLET GT SCH (09:00)
[2016-10-01] MEDS: LEVETIRACETAM SOL (5 ML) 100 MG/ML UDC GT SCH ×2 (09:00→20:39)
[2016-10-01] MEDS: TRILEPTAL GT SCH ×2 (09:00→20:39)
[2016-10-01] MEDS: INSULIN REGULAR, HUMAN 100 UNIT/ML 3 ML VIAL SQ PRN ×3 (11:49→23:58)
[2016-10-01] MEDS: GLYTROL 1,000 ML BAG GT PRN (11:49)
[2016-10-01] MEDS: NYSTATIN TOP POWDER 15 GM BOTTLE TP SCH ×2 (17:12→21:21)
[2016-10-01] MEDS: HYDROGEL DRESSING 90 GM TUBE TP SCH ×2 (17:12→21:21)
[2016-10-01] MEDS: HYDROGEN PEROXIDE 480 ML BOTTLE TP SCH ×2 (17:12→21:21)
[2016-10-01] MEDS: Z GUARD REMEDY 4 OZ OINT TP SCH ×2 (17:12→21:21)
[2016-10-01 20:00] VITALS: BP 137/87
[2016-10-02] MEDS: ALBUTEROL FS 2.5 MG/3 ML VIAL.NEB NEB SCH ×6 (02:39→23:34)
[2016-10-02] MEDS: DEXILANT 30 MG GT SCH (05:26)
[2016-10-02] MEDS: BLOOD SUGAR DIAGNOSTIC 1 EACH STRIP IN SCH ×3 (05:26→18:12)
[2016-10-02] MEDS: GLYTROL 1,000 ML BAG GT PRN ×2 (05:27→21:50)
[2016-10-02] MEDS: INSULIN REGULAR, HUMAN 100 UNIT/ML 3 ML VIAL SQ PRN (05:28)
[2016-10-02 08:00] VITALS: BP 102/63
[2016-10-02] MEDS: ASPIRIN 81 MG TAB.CHEW GT SCH (09:04)
[2016-10-02] MEDS: ACIDOPHILUS/BULGARICUS 1 EACH TAB.CHEW GT SCH ×2 (09:04→16:41)
[2016-10-02] MEDS: ASCORBIC ACID 500 MG TABLET GT SCH (09:04)
[2016-10-02] MEDS: LEVETIRACETAM SOL (5 ML) 100 MG/ML UDC GT SCH ×2 (09:04→21:35)
[2016-10-02] MEDS: MVI/MINERALS LIQUID (CEROVITE) GT SCH (09:04)
[2016-10-02] MEDS: PROSOURCE / PROSTAT (PYXIS) 30 ML UDC GT SCH ×2 (09:04→16:41)
[2016-10-02] MEDS: TRILEPTAL GT SCH ×2 (09:04→21:35)
[2016-10-02] MEDS: CALCIUM CARBONATE 500 MG TAB.CHEW GT SCH ×2 (09:04→16:41)
[2016-10-02] MEDS: HYDROGEL DRESSING 90 GM TUBE TP SCH ×2 (13:00→21:35)
[2016-10-02] MEDS: HYDROGEN PEROXIDE 480 ML BOTTLE TP SCH ×2 (13:00→21:35)
[2016-10-02] MEDS: VITAMINS A AND D 56.7 GM TUBE TP SCH ×2 (13:00→21:35)
[2016-10-02] MEDS: Z GUARD REMEDY 4 OZ OINT TP SCH ×2 (13:00→21:35)
[2016-10-02] MEDS: NYSTATIN TOP POWDER 15 GM BOTTLE TP SCH ×2 (13:00→21:35)
--- NOTE | 2016-10-02 15:00 | NUR ---
Seen by Anna Vargas NP with no new order.
[2016-10-02 19:23] VITALS: BP 97/58
[2016-10-03] MEDS: BLOOD SUGAR DIAGNOSTIC 1 EACH STRIP IN SCH ×4 (00:35→17:25)
[2016-10-03] MEDS: INSULIN REGULAR, HUMAN 100 UNIT/ML 3 ML VIAL SQ PRN ×4 (00:36→17:25)
[2016-10-03] MEDS: ALBUTEROL FS 2.5 MG/3 ML VIAL.NEB NEB SCH ×5 (03:49→19:52)
[2016-10-03] MEDS: DEXILANT 30 MG GT SCH (05:27)
[2016-10-03 07:47] VITALS: BP 134/78
[2016-10-03] MEDS: TRILEPTAL GT SCH ×2 (09:00→21:16)
[2016-10-03] MEDS: VITAMINS A AND D 56.7 GM TUBE TP SCH ×2 (09:00→21:17)
[2016-10-03] MEDS: CALCIUM CARBONATE 500 MG TAB.CHEW GT SCH ×2 (09:00→17:25)
[2016-10-03] MEDS: ASPIRIN 81 MG TAB.CHEW GT SCH (09:00)
[2016-10-03] MEDS: PROSOURCE / PROSTAT (PYXIS) 30 ML UDC GT SCH ×2 (09:00→17:25)
[2016-10-03] MEDS: ACIDOPHILUS/BULGARICUS 1 EACH TAB.CHEW GT SCH ×2 (09:00→17:25)
[2016-10-03] MEDS: Z GUARD REMEDY 4 OZ OINT TP SCH ×2 (09:00→21:16)
[2016-10-03] MEDS: LEVETIRACETAM SOL (5 ML) 100 MG/ML UDC GT SCH ×2 (09:00→21:16)
[2016-10-03] MEDS: HYDROGEL DRESSING 90 GM TUBE TP SCH ×2 (09:00→21:16)
[2016-10-03] MEDS: MVI/MINERALS LIQUID (CEROVITE) GT SCH (09:00)
[2016-10-03] MEDS: ASCORBIC ACID 500 MG TABLET GT SCH (09:00)
[2016-10-03] MEDS: HYDROGEN PEROXIDE 480 ML BOTTLE TP SCH ×2 (09:00→21:16)
[2016-10-03] MEDS: NYSTATIN TOP POWDER 15 GM BOTTLE TP SCH ×2 (09:00→21:16)
[2016-10-03] MEDS: GLYTROL 1,000 ML BAG GT PRN (12:55)
--- NOTE | 2016-10-03 14:00 | NUR ---
IDT meeting held, attended by resident's sister Beckie. Reviewed current orders, medications, treatment and labs. Beckie have concerns regarding follow-up of patient's kidney stone/mass. According to family, resident is being followed by the physician who does not have privileges here at [facility] and knows patient's history. SSD will set an appointment with attending physician, Dr. Montaño to discuss and how to resolve concerns. She also asked Dr. Felix, casino gaming worker about the ventilator, when trach will be out. Beckie was teary eyed after responded that her trach will prevent patient from running into trouble. She also brought some personal items such as body wash and wipes for personal use of patient. Endorsed.
[2016-10-03 19:20] VITALS: BP 117/73
[2016-10-04] MEDS: BLOOD SUGAR DIAGNOSTIC 1 EACH STRIP IN SCH ×5 (00:16→23:12)
[2016-10-04] MEDS: INSULIN REGULAR, HUMAN 100 UNIT/ML 3 ML VIAL SQ PRN ×4 (00:18→17:09)
[2016-10-04] MEDS: MAGNESIUM HYDROXIDE 30 ML UDC GT PRN (00:43)
[2016-10-04] MEDS: ALBUTEROL FS 2.5 MG/3 ML VIAL.NEB NEB SCH ×7 (03:03→23:41)
[2016-10-04] MEDS: DEXILANT 30 MG GT SCH (05:42)
[2016-10-04] MEDS: GLYTROL 1,000 ML BAG GT PRN ×2 (05:42→23:12)
[2016-10-04 08:00] VITALS: BP 120/65
[2016-10-04] MEDS: PROSOURCE / PROSTAT (PYXIS) 30 ML UDC GT SCH ×2 (09:37→16:58)
[2016-10-04] MEDS: CALCIUM CARBONATE 500 MG TAB.CHEW GT SCH ×2 (09:37→16:58)
[2016-10-04] MEDS: TRILEPTAL GT SCH ×2 (09:37→20:45)
[2016-10-04] MEDS: ACIDOPHILUS/BULGARICUS 1 EACH TAB.CHEW GT SCH ×2 (09:37→16:58)
[2016-10-04] MEDS: ASCORBIC ACID 500 MG TABLET GT SCH (09:37)
[2016-10-04] MEDS: MVI/MINERALS LIQUID (CEROVITE) GT SCH (09:37)
[2016-10-04] MEDS: LEVETIRACETAM SOL (5 ML) 100 MG/ML UDC GT SCH ×2 (09:37→20:45)
[2016-10-04] MEDS: ASPIRIN 81 MG TAB.CHEW GT SCH (09:37)
[2016-10-04] MEDS: NYSTATIN TOP POWDER 15 GM BOTTLE TP SCH ×2 (09:38→20:46)
[2016-10-04] MEDS: VITAMINS A AND D 56.7 GM TUBE TP SCH ×2 (09:38→20:45)
[2016-10-04] MEDS: HYDROGEL DRESSING 90 GM TUBE TP SCH ×2 (09:38→20:46)
[2016-10-04] MEDS: Z GUARD REMEDY 4 OZ OINT TP SCH ×2 (09:38→20:45)
[2016-10-04] MEDS: HYDROGEN PEROXIDE 480 ML BOTTLE TP SCH ×2 (09:38→20:45)
[2016-10-04 19:40] VITALS: BP 126/79
[2016-10-05] MEDS: ALBUTEROL FS 2.5 MG/3 ML VIAL.NEB NEB SCH ×6 (03:29→23:16)
[2016-10-05] MEDS: BLOOD SUGAR DIAGNOSTIC 1 EACH STRIP IN SCH ×4 (05:45→23:58)
[2016-10-05] MEDS: DEXILANT 30 MG GT SCH (05:45)
[2016-10-05] MEDS: CALCIUM CARBONATE 500 MG TAB.CHEW GT SCH ×2 (08:30→16:12)
[2016-10-05] MEDS: ACIDOPHILUS/BULGARICUS 1 EACH TAB.CHEW GT SCH ×2 (08:30→16:12)
[2016-10-05] MEDS: LEVETIRACETAM SOL (5 ML) 100 MG/ML UDC GT SCH ×2 (08:30→20:14)
[2016-10-05] MEDS: MVI/MINERALS LIQUID (CEROVITE) GT SCH (08:30)
[2016-10-05] MEDS: ASCORBIC ACID 500 MG TABLET GT SCH (08:30)
[2016-10-05] MEDS: ASPIRIN 81 MG TAB.CHEW GT SCH (08:30)
[2016-10-05] MEDS: PROSOURCE / PROSTAT (PYXIS) 30 ML UDC GT SCH ×2 (08:30→16:12)
[2016-10-05] MEDS: VITAMINS A AND D 56.7 GM TUBE TP SCH ×2 (08:31→20:16)
[2016-10-05] MEDS: HYDROGEN PEROXIDE 480 ML BOTTLE TP SCH ×2 (08:31→20:15)
[2016-10-05] MEDS: HYDROGEL DRESSING 90 GM TUBE TP SCH ×2 (08:31→20:15)
[2016-10-05] MEDS: Z GUARD REMEDY 4 OZ OINT TP SCH ×2 (08:31→20:16)
[2016-10-05 08:42] VITALS: BP 104/69
[2016-10-05] MEDS: TRILEPTAL GT SCH ×2 (09:00→20:14)
[2016-10-05 19:52] VITALS: BP 116/76
[2016-10-06] MEDS: ALBUTEROL FS 2.5 MG/3 ML VIAL.NEB NEB SCH ×6 (03:54→23:30)
[2016-10-06] MEDS: DEXILANT 30 MG GT SCH (06:00)
[2016-10-06] MEDS: BLOOD SUGAR DIAGNOSTIC 1 EACH STRIP IN SCH ×4 (06:00→23:36)
[2016-10-06 08:30] VITALS: BP 107/70
[2016-10-06] MEDS: ASPIRIN 81 MG TAB.CHEW GT SCH (08:54)
[2016-10-06] MEDS: TRILEPTAL GT SCH ×2 (08:54→20:53)
[2016-10-06] MEDS: PROSOURCE / PROSTAT (PYXIS) 30 ML UDC GT SCH ×2 (08:54→16:32)
[2016-10-06] MEDS: ASCORBIC ACID 500 MG TABLET GT SCH (08:54)
[2016-10-06] MEDS: CALCIUM CARBONATE 500 MG TAB.CHEW GT SCH ×2 (08:54→16:32)
[2016-10-06] MEDS: MVI/MINERALS LIQUID (CEROVITE) GT SCH (08:54)
[2016-10-06] MEDS: LEVETIRACETAM SOL (5 ML) 100 MG/ML UDC GT SCH ×2 (08:54→20:53)
[2016-10-06] MEDS: ACIDOPHILUS/BULGARICUS 1 EACH TAB.CHEW GT SCH ×2 (08:54→16:32)
[2016-10-06] MEDS: Z GUARD REMEDY 4 OZ OINT TP SCH ×2 (09:00→20:53)
[2016-10-06] MEDS: HYDROGEL DRESSING 90 GM TUBE TP SCH ×2 (09:00→20:53)
[2016-10-06] MEDS: VITAMINS A AND D 56.7 GM TUBE TP SCH ×2 (09:00→20:53)
[2016-10-06] MEDS: HYDROGEN PEROXIDE 480 ML BOTTLE TP SCH ×2 (09:00→20:53)
[2016-10-06] MEDS: INSULIN REGULAR, HUMAN 100 UNIT/ML 3 ML VIAL SQ PRN ×2 (13:29→18:57)
[2016-10-06] MEDS: GLYTROL 1,000 ML BAG GT PRN (20:54)
[2016-10-07] MEDS: ALBUTEROL FS 2.5 MG/3 ML VIAL.NEB NEB SCH ×5 (03:30→20:28)
[2016-10-07] MEDS: DEXILANT 30 MG GT SCH (05:31)
[2016-10-07] MEDS: BLOOD SUGAR DIAGNOSTIC 1 EACH STRIP IN SCH ×3 (05:31→18:17)
[2016-10-07 07:43] VITALS: BP 100/54
[2016-10-07] MEDS: LEVETIRACETAM SOL (5 ML) 100 MG/ML UDC GT SCH ×2 (08:35→20:13)
[2016-10-07] MEDS: MVI/MINERALS LIQUID (CEROVITE) GT SCH (08:35)
[2016-10-07] MEDS: ASCORBIC ACID 500 MG TABLET GT SCH (08:35)
[2016-10-07] MEDS: ACIDOPHILUS/BULGARICUS 1 EACH TAB.CHEW GT SCH ×2 (08:35→17:19)
[2016-10-07] MEDS: CALCIUM CARBONATE 500 MG TAB.CHEW GT SCH ×2 (08:35→17:19)
[2016-10-07] MEDS: PROSOURCE / PROSTAT (PYXIS) 30 ML UDC GT SCH ×2 (08:35→17:19)
[2016-10-07] MEDS: TRILEPTAL GT SCH ×2 (08:35→20:13)
[2016-10-07] MEDS: ASPIRIN 81 MG TAB.CHEW GT SCH (08:35)
[2016-10-07] MEDS: Z GUARD REMEDY 4 OZ OINT TP SCH ×2 (09:00→20:14)
[2016-10-07] MEDS: HYDROGEL DRESSING 90 GM TUBE TP SCH ×2 (09:00→20:13)
[2016-10-07] MEDS: VITAMINS A AND D 56.7 GM TUBE TP SCH ×2 (09:00→20:14)
[2016-10-07] MEDS: HYDROGEN PEROXIDE 480 ML BOTTLE TP SCH ×2 (09:00→20:13)
--- NOTE | 2016-10-07 09:40 | NUR ---
Seen by Dr Felix with no new order.
[2016-10-07] MEDS: INSULIN REGULAR, HUMAN 100 UNIT/ML 3 ML VIAL SQ PRN ×2 (12:24→18:17)
--- NOTE | 2016-10-07 15:22 | NUR ---
Called resident's sister and informed her of IDT this Thursday. She stated that yes she would like to be present and wanted apologize for her behavior during the previous IDT meeting. Also notified her that resident's primary physician Dr. Montaño was on vacation but would work on scheduling an appointment with him as she requested during previous IDT when he returns. SW also stated that she and manager nursing were available to meet if she wanted to discuss her unhappiness with the subacute placement, as she expressed during previous IDT. However, she said "lets take it one step at a time and I will be there for IDT this Thursday." equine manager informed.
[2016-10-07 19:55] VITALS: BP 120/52
[2016-10-08] MEDS: ALBUTEROL FS 2.5 MG/3 ML VIAL.NEB NEB SCH ×7 (00:18→23:51)
[2016-10-08] MEDS: BLOOD SUGAR DIAGNOSTIC 1 EACH STRIP IN SCH ×4 (00:40→17:31)
[2016-10-08] MEDS: DEXILANT 30 MG GT SCH (05:56)
[2016-10-08 08:08] VITALS: BP_SYST 109; BP_SYST 123; BP_DIAS 70; BP_DIAS 72
[2016-10-08] MEDS: PROSOURCE / PROSTAT (PYXIS) 30 ML UDC GT SCH ×2 (09:32→17:30)
[2016-10-08] MEDS: HYDROGEN PEROXIDE 480 ML BOTTLE TP SCH ×2 (09:32→21:43)
[2016-10-08] MEDS: VITAMINS A AND D 56.7 GM TUBE TP SCH ×2 (09:32→21:43)
[2016-10-08] MEDS: LEVETIRACETAM SOL (5 ML) 100 MG/ML UDC GT SCH ×2 (09:32→20:55)
[2016-10-08] MEDS: HYDROGEL DRESSING 90 GM TUBE TP SCH ×2 (09:32→21:43)
[2016-10-08] MEDS: Z GUARD REMEDY 4 OZ OINT TP SCH ×2 (09:32→21:43)
[2016-10-08] MEDS: ASCORBIC ACID 500 MG TABLET GT SCH (09:32)
[2016-10-08] MEDS: CALCIUM CARBONATE 500 MG TAB.CHEW GT SCH ×2 (09:32→17:31)
[2016-10-08] MEDS: MVI/MINERALS LIQUID (CEROVITE) GT SCH (09:32)
[2016-10-08] MEDS: TRILEPTAL GT SCH ×2 (09:32→20:55)
[2016-10-08] MEDS: ASPIRIN 81 MG TAB.CHEW GT SCH (09:32)
[2016-10-08] MEDS: ACIDOPHILUS/BULGARICUS 1 EACH TAB.CHEW GT SCH ×2 (09:32→17:30)
--- NOTE | 2016-10-08 14:00 | NUR ---
Spoke with IC that resident completed ATB for pseudomonas and ESBL urine, asked when isolation can be d/fernando, stated she wants 2 negative urine culture before ATB can be discontinued. Endorsed to collect specimen.
--- NOTE | 2016-10-08 16:00 | NUR ---
Sister Beckie wanted to speak to Dr. Montaño, resident's primary physician. Dr. Montaño stated that he is able to meet with her Monday October 10, 2016 at 11:30am. Beckie stated that she was able to come at this time. Dr. Montaño was notified.
[2016-10-08] MEDS: GLYTROL 1,000 ML BAG GT PRN (17:00)
--- NOTE | 2016-10-08 18:05 | NUR ---
Seen and examined by Anna Vargas NP for Dr. Felix, sales property manager, NNO given.
[2016-10-08 20:09] VITALS: BP 118/50
[2016-10-09] MEDS: INSULIN REGULAR, HUMAN 100 UNIT/ML 3 ML VIAL SQ PRN ×2 (00:12→05:58)
[2016-10-09] MEDS: BLOOD SUGAR DIAGNOSTIC 1 EACH STRIP IN SCH ×4 (00:12→17:56)
[2016-10-09] MEDS: ALBUTEROL FS 2.5 MG/3 ML VIAL.NEB NEB SCH ×6 (03:30→23:01)
[2016-10-09] MEDS: DEXILANT 30 MG GT SCH (05:57)
[2016-10-09] MEDS: ASPIRIN 81 MG TAB.CHEW GT SCH (09:52)
[2016-10-09] MEDS: VITAMINS A AND D 56.7 GM TUBE TP SCH ×2 (09:52→21:36)
[2016-10-09] MEDS: ASCORBIC ACID 500 MG TABLET GT SCH (09:52)
[2016-10-09] MEDS: LEVETIRACETAM SOL (5 ML) 100 MG/ML UDC GT SCH ×2 (09:52→21:35)
[2016-10-09] MEDS: HYDROGEN PEROXIDE 480 ML BOTTLE TP SCH ×2 (09:52→21:36)
[2016-10-09] MEDS: CALCIUM CARBONATE 500 MG TAB.CHEW GT SCH ×2 (09:52→17:56)
[2016-10-09] MEDS: ACIDOPHILUS/BULGARICUS 1 EACH TAB.CHEW GT SCH ×2 (09:52→17:56)
[2016-10-09] MEDS: Z GUARD REMEDY 4 OZ OINT TP SCH ×2 (09:52→21:36)
[2016-10-09] MEDS: MVI/MINERALS LIQUID (CEROVITE) GT SCH (09:52)
[2016-10-09] MEDS: TRILEPTAL GT SCH ×2 (09:52→21:35)
[2016-10-09] MEDS: HYDROGEL DRESSING 90 GM TUBE TP SCH ×2 (09:52→21:36)
[2016-10-09] MEDS: PROSOURCE / PROSTAT (PYXIS) 30 ML UDC GT SCH ×2 (09:52→17:56)
[2016-10-09 19:54] VITALS: BP 100/56
[2016-10-09] MEDS: CODEINE/PROMETHAZINE HCL 5 ML UDC GT PRN (21:36)
[2016-10-10] MEDS: INSULIN REGULAR, HUMAN 100 UNIT/ML 3 ML VIAL SQ PRN ×3 (00:50→23:55)
[2016-10-10] MEDS: BLOOD SUGAR DIAGNOSTIC 1 EACH STRIP IN SCH ×5 (00:50→23:55)
[2016-10-10] MEDS: ALBUTEROL FS 2.5 MG/3 ML VIAL.NEB NEB SCH ×6 (03:50→23:30)
[2016-10-10] MEDS: DEXILANT 30 MG GT SCH (06:07)
[2016-10-10 07:35] LABS: BASOPHILS # (AUTO) 0.1 /CMM (0.0-0.2); BASOPHILS % (AUTO) 0.3 % (0.0-2.0); EOSINOPHILS # (AUTO) 0.5 /CMM (0.0-0.7); EOSINOPHILS % (AUTO) 2.7 % (0.0-6.0); HEMATOCRIT 29 % (33-45); HEMOGLOBIN 9.8 g/dL (11.5-14.8); LYMPHOCYTES # (AUTO) 2.2 /CMM (0.8-4.8); LYMPHOCYTES % (AUTO) 11.3 % (20.0-44.0); MEAN CORPUSCULAR HEMOGLOBIN 33 PG (26.0-33.0); MEAN CORPUSCULAR HGB CONC 34 g/dl (31.0-36.0); MEAN CORPUSCULAR VOLUME 95 fL (82-100); MONOCYTES # (AUTO) 0.9 /CMM (0.1-1.30); MONOCYTES % (AUTO) 4.8 % (2.0-12.0); NEUTROPHILS % (AUTO) 80.9 % (43.0-81.0); PLATELET COUNT (AUTO) 421 /CMM (150-450); RDW COEFFICIENT OF VARIATION 18.1 (11.5-15.0); RED BLOOD CELL COUNT(AUTO) 3.02 MIL/uL (4.0-5.2); WHITE BLOOD COUNT (AUTO) 19.7 K/uL (4.3-11.0)
[2016-10-10 07:46] VITALS: BP 102/63
[2016-10-10 08:00] LABS: CALCIUM, SERUM 9.4 mg/dL (8.5-10.1); CREATININE 1.7 mg/dL (0.6-1.3); POTASSIUM 3.8 mmol/L (3.5-5.1)
--- NOTE | 2016-10-10 09:32 | NUR ---
Beckie called SW and stated that she was not going to be able to make it to IDT today as well as her meeting with Dr. Montaño at 11:30. In[address]. Montaño to cancel.
--- NOTE | 2016-10-10 09:38 | NUR ---
Seen and examined by Dr. Urmila Ornelas, NNO given.
[2016-10-10] MEDS: MVI/MINERALS LIQUID (CEROVITE) GT SCH (09:42)
[2016-10-10] MEDS: ASPIRIN 81 MG TAB.CHEW GT SCH (09:42)
[2016-10-10] MEDS: TRILEPTAL GT SCH ×2 (09:42→21:26)
[2016-10-10] MEDS: ACIDOPHILUS/BULGARICUS 1 EACH TAB.CHEW GT SCH ×2 (09:42→17:00)
[2016-10-10] MEDS: CALCIUM CARBONATE 500 MG TAB.CHEW GT SCH ×2 (09:42→17:00)
[2016-10-10] MEDS: PROSOURCE / PROSTAT (PYXIS) 30 ML UDC GT SCH ×2 (09:42→17:00)
[2016-10-10] MEDS: HYDROGEN PEROXIDE 480 ML BOTTLE TP SCH ×2 (09:42→21:27)
[2016-10-10] MEDS: ASCORBIC ACID 500 MG TABLET GT SCH (09:42)
[2016-10-10] MEDS: HYDROGEL DRESSING 90 GM TUBE TP SCH ×2 (09:42→21:27)
[2016-10-10] MEDS: LEVETIRACETAM SOL (5 ML) 100 MG/ML UDC GT SCH ×2 (09:42→21:27)
[2016-10-10] MEDS: Z GUARD REMEDY 4 OZ OINT TP SCH ×2 (09:43→21:27)
[2016-10-10] MEDS: VITAMINS A AND D 56.7 GM TUBE TP SCH ×2 (09:43→21:27)
--- NOTE | 2016-10-10 09:59 | NUR ---
Left a message to BHARGAVI Loredo regarding preliminary result of urine cx showing Gram negative rods and Strep Species both > 100,000. with WBC 19.7, afebrile at 98.7. Awaiting for order.
--- NOTE | 2016-10-10 10:30 | NUR ---
Received an order from NAN Loredo to start patient on IV ATB, Merrem and will do bladder scan to check residual. Notified sister Beckie of the new order. Appreciated the call.
[2016-10-10] MEDS: CODEINE/PROMETHAZINE HCL 5 ML UDC GT PRN (13:12)
[2016-10-10] MEDS: MEROPENEM 500 MG in IV NS 0.9% 50 ML IV SCH ×2 (14:30→21:31)
--- NOTE | 2016-10-10 18:55 | NUR ---
Bladder scan done, post void residual, [address] Felix notified during IDT meeting with new order to insert F/C. Son's sister Beckie notified. NAN Loredo, ID reviewed medications, labs and culture result, new order given for chest x-ray and gave stop date for Merrem x 7 days.
[2016-10-10 19:58] VITALS: BP 114/70
[2016-10-11] MEDS: ALBUTEROL FS 2.5 MG/3 ML VIAL.NEB NEB SCH ×6 (03:30→23:30)
[2016-10-11] MEDS: MEROPENEM 500 MG in IV NS 0.9% 50 ML IV SCH ×3 (05:41→22:00)
[2016-10-11] MEDS: BLOOD SUGAR DIAGNOSTIC 1 EACH STRIP IN SCH ×3 (05:58→17:26)
[2016-10-11] MEDS: DEXILANT 30 MG GT SCH (05:58)
[2016-10-11] MEDS: INSULIN REGULAR, HUMAN 100 UNIT/ML 3 ML VIAL SQ PRN (05:59)
[2016-10-11 08:00] VITALS: BP 110/68
[2016-10-11] MEDS: TRILEPTAL GT SCH ×2 (09:00→21:16)
[2016-10-11] MEDS: LEVETIRACETAM SOL (5 ML) 100 MG/ML UDC GT SCH ×2 (09:00→21:16)
[2016-10-11] MEDS: HYDROGEL DRESSING 90 GM TUBE TP SCH ×2 (09:00→21:20)
[2016-10-11] MEDS: MVI/MINERALS LIQUID (CEROVITE) GT SCH (09:00)
[2016-10-11] MEDS: HYDROGEN PEROXIDE 480 ML BOTTLE TP SCH ×2 (09:00→21:20)
[2016-10-11] MEDS: CALCIUM CARBONATE 500 MG TAB.CHEW GT SCH ×2 (09:00→17:26)
[2016-10-11] MEDS: ACIDOPHILUS/BULGARICUS 1 EACH TAB.CHEW GT SCH ×2 (09:00→17:26)
[2016-10-11] MEDS: Z GUARD REMEDY 4 OZ OINT TP SCH ×2 (09:00→21:20)
[2016-10-11] MEDS: ASPIRIN 81 MG TAB.CHEW GT SCH (09:00)
[2016-10-11] MEDS: ASCORBIC ACID 500 MG TABLET GT SCH (09:00)
[2016-10-11] MEDS: PROSOURCE / PROSTAT (PYXIS) 30 ML UDC GT SCH ×2 (09:00→17:26)
[2016-10-11] MEDS: VITAMINS A AND D 56.7 GM TUBE TP SCH ×2 (09:00→21:20)
[2016-10-11] MEDS ORDERED: MEROPENEM 500 MG in IV NS 0.9% 50 ML IV SCH (12:38)
--- NOTE | 2016-10-11 13:29 | NUR ---
Notified NAN Loredo of the final result of urine culture showing E. Coli ESBL and Ent. Faecalis VRE. Awaiting for call back from Gertrude if she will adjust current ATB order. Currently on Merrem, no adverse reaction noted. Observed contact isolation for VRE and ESBL urine.
[2016-10-11] MEDS: GLYTROL 1,000 ML BAG GT PRN (14:55)
--- NOTE | 2016-10-11 16:20 | NUR ---
Gertrude returned the call with new order to start patient on Macrobid and add contact isolation VRE of urine. CBC ordered for Thursday. Family notified via VM.
[2016-10-11 19:53] VITALS: BP 125/79
[2016-10-11] MEDS: NITROFURANTOIN/NITROFURAN MAC 100 MG CAPSULE GT SCH (21:40)
[2016-10-12] MEDS: BLOOD SUGAR DIAGNOSTIC 1 EACH STRIP IN SCH ×5 (00:44→23:15)
[2016-10-12] MEDS: INSULIN REGULAR, HUMAN 100 UNIT/ML 3 ML VIAL SQ PRN ×2 (00:45→05:37)
--- NOTE | 2016-10-12 01:06 | NUR ---
EQUIPMENT CHANGED. Addendum: 10/12/16 at 0107 by ADRIANA TORRES RT Amended: Links added.
[2016-10-12] MEDS: ALBUTEROL FS 2.5 MG/3 ML VIAL.NEB NEB SCH ×6 (03:30→23:46)
[2016-10-12] MEDS: MEROPENEM 500 MG in IV NS 0.9% 50 ML IV SCH ×3 (05:33→22:31)
[2016-10-12] MEDS: DEXILANT 30 MG GT SCH (05:36)
[2016-10-12] MEDS: ASPIRIN 81 MG TAB.CHEW GT SCH (08:56)
[2016-10-12] MEDS: LEVETIRACETAM SOL (5 ML) 100 MG/ML UDC GT SCH ×2 (08:56→20:13)
[2016-10-12] MEDS: TRILEPTAL GT SCH ×2 (08:56→20:13)
[2016-10-12] MEDS: ACIDOPHILUS/BULGARICUS 1 EACH TAB.CHEW GT SCH ×2 (08:56→16:41)
[2016-10-12] MEDS: HYDROGEN PEROXIDE 480 ML BOTTLE TP SCH ×2 (08:57→20:16)
[2016-10-12] MEDS: CALCIUM CARBONATE 500 MG TAB.CHEW GT SCH ×2 (08:57→16:41)
[2016-10-12] MEDS: Z GUARD REMEDY 4 OZ OINT TP SCH ×2 (08:57→20:16)
[2016-10-12] MEDS: VITAMINS A AND D 56.7 GM TUBE TP SCH ×2 (08:57→20:16)
[2016-10-12] MEDS: NITROFURANTOIN/NITROFURAN MAC 100 MG CAPSULE GT SCH ×2 (08:57→20:15)
[2016-10-12] MEDS: ASCORBIC ACID 500 MG TABLET GT SCH (08:57)
[2016-10-12] MEDS: HYDROGEL DRESSING 90 GM TUBE TP SCH ×2 (08:57→20:16)
[2016-10-12] MEDS: PROSOURCE / PROSTAT (PYXIS) 30 ML UDC GT SCH ×2 (08:57→16:41)
[2016-10-12] MEDS: MVI/MINERALS LIQUID (CEROVITE) GT SCH (08:57)
[2016-10-12 13:19] VITALS: BP 113/64
[2016-10-12] MEDS: GLYTROL 1,000 ML BAG GT PRN (16:41)
[2016-10-12 20:00] VITALS: BP 123/70
[2016-10-13] MEDS: ALBUTEROL FS 2.5 MG/3 ML VIAL.NEB NEB SCH ×6 (03:30→23:27)
[2016-10-13] MEDS: DEXILANT 30 MG GT SCH (05:17)
[2016-10-13] MEDS: BLOOD SUGAR DIAGNOSTIC 1 EACH STRIP IN SCH ×3 (05:17→17:40)
[2016-10-13] MEDS: MEROPENEM 500 MG in IV NS 0.9% 50 ML IV SCH ×3 (06:34→22:00)
[2016-10-13 08:23] VITALS: BP 140/69
[2016-10-13] MEDS: ASCORBIC ACID 500 MG TABLET GT SCH (08:23)
[2016-10-13] MEDS: MVI/MINERALS LIQUID (CEROVITE) GT SCH (08:23)
[2016-10-13] MEDS: ACIDOPHILUS/BULGARICUS 1 EACH TAB.CHEW GT SCH ×2 (08:23→17:40)
[2016-10-13] MEDS: CALCIUM CARBONATE 500 MG TAB.CHEW GT SCH ×2 (08:23→17:40)
[2016-10-13] MEDS: LEVETIRACETAM SOL (5 ML) 100 MG/ML UDC GT SCH ×2 (08:23→20:09)
[2016-10-13] MEDS: PROSOURCE / PROSTAT (PYXIS) 30 ML UDC GT SCH ×2 (08:23→17:40)
[2016-10-13] MEDS: NITROFURANTOIN/NITROFURAN MAC 100 MG CAPSULE GT SCH ×2 (08:23→20:09)
[2016-10-13] MEDS: TRILEPTAL GT SCH ×2 (08:23→20:09)
[2016-10-13] MEDS: ASPIRIN 81 MG TAB.CHEW GT SCH (08:23)
[2016-10-13] MEDS: HYDROGEN PEROXIDE 480 ML BOTTLE TP SCH ×2 (08:30→20:09)
[2016-10-13] MEDS: Z GUARD REMEDY 4 OZ OINT TP SCH ×2 (08:30→20:09)
[2016-10-13] MEDS: HYDROGEL DRESSING 90 GM TUBE TP SCH ×2 (08:30→20:09)
[2016-10-13] MEDS: VITAMINS A AND D 56.7 GM TUBE TP SCH ×2 (08:31→20:09)
[2016-10-13] MEDS: INSULIN REGULAR, HUMAN 100 UNIT/ML 3 ML VIAL SQ PRN ×2 (12:14→17:41)
[2016-10-13 16:39] LABS: BASOPHILS % (AUTO) 0.2 % (0.0-2.0); EOSINOPHILS # (AUTO) 1.3 /CMM (0.0-0.7); EOSINOPHILS % (AUTO) 7.5 % (0.0-6.0); HEMATOCRIT 29 % (33-45); LYMPHOCYTES # (AUTO) 1.3 /CMM (0.8-4.8); LYMPHOCYTES % (AUTO) 7.3 % (20.0-44.0); MEAN CORPUSCULAR HEMOGLOBIN 32 PG (26.0-33.0); MEAN CORPUSCULAR HGB CONC 34 g/dl (31.0-36.0); MEAN CORPUSCULAR VOLUME 95 fL (82-100); NEUTROPHILS # (AUTO) 13.7 /CMM (1.8-8.9); PLATELET COUNT (AUTO) 417 /CMM (150-450); RDW COEFFICIENT OF VARIATION 18.2 (11.5-15.0); RED BLOOD CELL COUNT(AUTO) 3.11 MIL/uL (4.0-5.2); WHITE BLOOD COUNT (AUTO) 17.3 K/uL (4.3-11.0)
[2016-10-13 19:50] VITALS: BP 126/68
[2016-10-14] MEDS: BLOOD SUGAR DIAGNOSTIC 1 EACH STRIP IN SCH ×5 (00:04→23:55)
[2016-10-14] MEDS: ALBUTEROL FS 2.5 MG/3 ML VIAL.NEB NEB SCH ×6 (02:35→23:32)
[2016-10-14] MEDS: DEXILANT 30 MG GT SCH (05:08)
[2016-10-14] MEDS: MEROPENEM 500 MG in IV NS 0.9% 50 ML IV SCH ×3 (05:24→22:00)
[2016-10-14 08:15] VITALS: BP 124/79
[2016-10-14] MEDS: ASPIRIN 81 MG TAB.CHEW GT SCH (08:59)
[2016-10-14] MEDS: NITROFURANTOIN/NITROFURAN MAC 100 MG CAPSULE GT SCH ×2 (08:59→20:23)
[2016-10-14] MEDS: ACIDOPHILUS/BULGARICUS 1 EACH TAB.CHEW GT SCH ×2 (08:59→17:21)
[2016-10-14] MEDS: TRILEPTAL GT SCH ×2 (08:59→20:23)
[2016-10-14] MEDS: PROSOURCE / PROSTAT (PYXIS) 30 ML UDC GT SCH ×2 (08:59→17:21)
[2016-10-14] MEDS: MVI/MINERALS LIQUID (CEROVITE) GT SCH (08:59)
[2016-10-14] MEDS: LEVETIRACETAM SOL (5 ML) 100 MG/ML UDC GT SCH ×2 (08:59→20:23)
[2016-10-14] MEDS: VITAMINS A AND D 56.7 GM TUBE TP SCH ×2 (09:00→20:24)
[2016-10-14] MEDS: ASCORBIC ACID 500 MG TABLET GT SCH (09:00)
[2016-10-14] MEDS: CALCIUM CARBONATE 500 MG TAB.CHEW GT SCH ×2 (09:00→17:21)
[2016-10-14] MEDS: HYDROGEL DRESSING 90 GM TUBE TP SCH ×2 (09:00→20:24)
[2016-10-14] MEDS: Z GUARD REMEDY 4 OZ OINT TP SCH ×2 (09:00→20:24)
[2016-10-14] MEDS: HYDROGEN PEROXIDE 480 ML BOTTLE TP SCH ×2 (09:00→20:24)
--- NOTE | 2016-10-14 10:10 | NUR ---
Seen and examined by Dr Felix with no new order.
[2016-10-14] MEDS: INSULIN REGULAR, HUMAN 100 UNIT/ML 3 ML VIAL SQ PRN ×2 (12:10→18:33)
[2016-10-14 19:54] VITALS: BP 126/77
[2016-10-15] MEDS: ALBUTEROL FS 2.5 MG/3 ML VIAL.NEB NEB SCH ×6 (02:48→23:41)
[2016-10-15] MEDS: DEXILANT 30 MG GT SCH (05:20)
[2016-10-15] MEDS: BLOOD SUGAR DIAGNOSTIC 1 EACH STRIP IN SCH ×4 (05:21→23:53)
[2016-10-15] MEDS: MEROPENEM 500 MG in IV NS 0.9% 50 ML IV SCH ×3 (06:08→21:46)
[2016-10-15 08:06] VITALS: BP 135/85
[2016-10-15] MEDS: Z GUARD REMEDY 4 OZ OINT TP SCH ×2 (09:00→21:14)
[2016-10-15] MEDS: HYDROGEL DRESSING 90 GM TUBE TP SCH ×2 (09:00→21:13)
[2016-10-15] MEDS: HYDROGEN PEROXIDE 480 ML BOTTLE TP SCH ×2 (09:00→21:13)
[2016-10-15] MEDS: VITAMINS A AND D 56.7 GM TUBE TP SCH ×2 (09:00→21:14)
[2016-10-15] MEDS: ASPIRIN 81 MG TAB.CHEW GT SCH (09:09)
[2016-10-15] MEDS: TRILEPTAL GT SCH ×2 (09:09→21:13)
[2016-10-15] MEDS: MVI/MINERALS LIQUID (CEROVITE) GT SCH (09:09)
[2016-10-15] MEDS: CALCIUM CARBONATE 500 MG TAB.CHEW GT SCH ×2 (09:09→17:55)
[2016-10-15] MEDS: ASCORBIC ACID 500 MG TABLET GT SCH (09:09)
[2016-10-15] MEDS: ACIDOPHILUS/BULGARICUS 1 EACH TAB.CHEW GT SCH ×2 (09:09→17:55)
[2016-10-15] MEDS: NITROFURANTOIN/NITROFURAN MAC 100 MG CAPSULE GT SCH ×2 (09:09→21:13)
[2016-10-15] MEDS: LEVETIRACETAM SOL (5 ML) 100 MG/ML UDC GT SCH ×2 (09:09→21:13)
[2016-10-15] MEDS: PROSOURCE / PROSTAT (PYXIS) 30 ML UDC GT SCH ×2 (09:09→17:55)
--- NOTE | 2016-10-15 19:00 | NUR ---
Seen and examined by NAN Loredo, ID new order given for CBC in AM and ATB Macrobid and Merrem to be given for a total of 2 weeks. Beckie (sister) made aware of new order and clarified her question regarding the use of maher catheter. Appreciated the information given.
[2016-10-15 19:59] VITALS: BP 129/74
[2016-10-15] MEDS: GLYTROL 1,000 ML BAG GT PRN (21:58)
[2016-10-15] MEDS: INSULIN REGULAR, HUMAN 100 UNIT/ML 3 ML VIAL SQ PRN (23:53)
[2016-10-16] MEDS: ALBUTEROL FS 2.5 MG/3 ML VIAL.NEB NEB SCH ×6 (03:55→23:29)
[2016-10-16] MEDS: INSULIN REGULAR, HUMAN 100 UNIT/ML 3 ML VIAL SQ PRN ×2 (05:08→23:15)
[2016-10-16] MEDS: BLOOD SUGAR DIAGNOSTIC 1 EACH STRIP IN SCH ×4 (05:08→23:15)
[2016-10-16] MEDS: DEXILANT 30 MG GT SCH (05:08)
[2016-10-16] MEDS: MEROPENEM 500 MG in IV NS 0.9% 50 ML IV SCH ×3 (05:56→22:05)
[2016-10-16 07:33] VITALS: BP 124/71
[2016-10-16] MEDS: PROSOURCE / PROSTAT (PYXIS) 30 ML UDC GT SCH ×2 (09:00→17:39)
[2016-10-16] MEDS: Z GUARD REMEDY 4 OZ OINT TP SCH ×2 (09:00→20:21)
[2016-10-16] MEDS: TRILEPTAL GT SCH ×2 (09:00→20:21)
[2016-10-16] MEDS: ASCORBIC ACID 500 MG TABLET GT SCH (09:00)
[2016-10-16] MEDS: NITROFURANTOIN/NITROFURAN MAC 100 MG CAPSULE GT SCH ×2 (09:00→20:21)
[2016-10-16] MEDS: HYDROGEN PEROXIDE 480 ML BOTTLE TP SCH ×2 (09:00→20:21)
[2016-10-16] MEDS: ASPIRIN 81 MG TAB.CHEW GT SCH (09:00)
[2016-10-16] MEDS: ACIDOPHILUS/BULGARICUS 1 EACH TAB.CHEW GT SCH ×2 (09:00→17:39)
[2016-10-16] MEDS: VITAMINS A AND D 56.7 GM TUBE TP SCH ×2 (09:00→20:21)
[2016-10-16] MEDS: CALCIUM CARBONATE 500 MG TAB.CHEW GT SCH ×2 (09:00→17:39)
[2016-10-16] MEDS: MVI/MINERALS LIQUID (CEROVITE) GT SCH (09:00)
[2016-10-16] MEDS: LEVETIRACETAM SOL (5 ML) 100 MG/ML UDC GT SCH ×2 (09:00→20:21)
[2016-10-16] MEDS: HYDROGEL DRESSING 90 GM TUBE TP SCH ×2 (09:00→20:21)
[2016-10-16 12:33] LABS: BASOPHILS % (AUTO) 0.3 % (0.0-2.0); EOSINOPHILS % (AUTO) 6.2 % (0.0-6.0); HEMATOCRIT 29 % (33-45); HEMOGLOBIN 9.8 g/dL (11.5-14.8); LYMPHOCYTES # (AUTO) 1.7 /CMM (0.8-4.8); LYMPHOCYTES % (AUTO) 11.4 % (20.0-44.0); MEAN CORPUSCULAR HEMOGLOBIN 32 PG (26.0-33.0); MEAN CORPUSCULAR HGB CONC 34 g/dl (31.0-36.0); MEAN CORPUSCULAR VOLUME 95 fL (82-100); MONOCYTES % (AUTO) 6.4 % (2.0-12.0); NEUTROPHILS # (AUTO) 11.6 /CMM (1.8-8.9); NEUTROPHILS % (AUTO) 75.7 % (43.0-81.0); PLATELET COUNT (AUTO) 440 /CMM (150-450); RDW COEFFICIENT OF VARIATION 17.6 (11.5-15.0); RED BLOOD CELL COUNT(AUTO) 3.06 MIL/uL (4.0-5.2); WHITE BLOOD COUNT (AUTO) 15.3 K/uL (4.3-11.0)
--- NOTE | 2016-10-16 15:23 | NUR ---
RT RECEIVED PT TRACH'D ON [facility] VENT WITH SETTINGS PER MD ORDER. RELATIONSHIP ASSOC DONE. BILAT BREATH SOUNDS ON AUSCULTATION. ALARMS ON AND FUNCTIONING PROPERLY. VENT PLUGGED INTO RED OUTLET. SPARE TRACH AND AMBU BAG AT BEDSIDE. TX'S GIVEN. NO ADVERSE REACTIONS OBSERVED. TRACH SECURE AND AIRWAY PATENT. SUCTIONED SMALL AMOUNTS OF THICK, WHITE/YELLOW SECRETIONS. NO SOB NOTED AT THIS TIME. WILL CONTINUE TO MONITOR THE PATIENT FOR ANY CHANGES. Addendum: 10/16/16 at 1642 by YAMIL MARTINEZ RT Amended: Links added.
[2016-10-16 22:04] VITALS: BP 125/70
[2016-10-17] MEDS: ALBUTEROL FS 2.5 MG/3 ML VIAL.NEB NEB SCH ×6 (02:51→22:56)
[2016-10-17] MEDS: DEXILANT 30 MG GT SCH (05:13)
[2016-10-17] MEDS: BLOOD SUGAR DIAGNOSTIC 1 EACH STRIP IN SCH ×4 (05:13→23:22)
[2016-10-17] MEDS: INSULIN REGULAR, HUMAN 100 UNIT/ML 3 ML VIAL SQ PRN ×2 (05:14→23:22)
[2016-10-17] MEDS: MEROPENEM 500 MG in IV NS 0.9% 50 ML IV SCH ×3 (05:55→22:00)
[2016-10-17 07:26] VITALS: BP 92/70
[2016-10-17] MEDS: PROSOURCE / PROSTAT (PYXIS) 30 ML UDC GT SCH ×2 (09:00→17:37)
[2016-10-17] MEDS: Z GUARD REMEDY 4 OZ OINT TP SCH ×2 (09:00→20:20)
[2016-10-17] MEDS: NITROFURANTOIN/NITROFURAN MAC 100 MG CAPSULE GT SCH ×2 (09:00→20:19)
[2016-10-17] MEDS: ASPIRIN 81 MG TAB.CHEW GT SCH (09:00)
[2016-10-17] MEDS: CALCIUM CARBONATE 500 MG TAB.CHEW GT SCH ×2 (09:00→17:37)
[2016-10-17] MEDS: TRILEPTAL GT SCH ×2 (09:00→20:19)
[2016-10-17] MEDS: VITAMINS A AND D 56.7 GM TUBE TP SCH ×2 (09:00→20:20)
[2016-10-17] MEDS: LEVETIRACETAM SOL (5 ML) 100 MG/ML UDC GT SCH ×2 (09:00→20:19)
[2016-10-17] MEDS: HYDROGEN PEROXIDE 480 ML BOTTLE TP SCH ×2 (09:00→20:20)
[2016-10-17] MEDS: MVI/MINERALS LIQUID (CEROVITE) GT SCH (09:00)
[2016-10-17] MEDS: HYDROGEL DRESSING 90 GM TUBE TP SCH ×2 (09:00→20:20)
[2016-10-17] MEDS: ASCORBIC ACID 500 MG TABLET GT SCH (09:00)
[2016-10-17] MEDS: ACIDOPHILUS/BULGARICUS 1 EACH TAB.CHEW GT SCH ×2 (09:00→17:37)
[2016-10-17 19:30] VITALS: BP 112/70
[2016-10-17] MEDS: BISACODYL SUPP (10 MG) 10 MG/SUPP.RECT SUPP.RECT RC PRN (20:20)
[2016-10-18] MEDS: ALBUTEROL FS 2.5 MG/3 ML VIAL.NEB NEB SCH ×6 (03:42→22:58)
[2016-10-18] MEDS: MAGNESIUM HYDROXIDE 30 ML UDC GT PRN (05:25)
[2016-10-18] MEDS: DEXILANT 30 MG GT SCH (05:25)
[2016-10-18] MEDS: INSULIN REGULAR, HUMAN 100 UNIT/ML 3 ML VIAL SQ PRN ×2 (05:25→23:15)
[2016-10-18] MEDS: GLYTROL 1,000 ML BAG GT PRN (05:25)
[2016-10-18] MEDS: BLOOD SUGAR DIAGNOSTIC 1 EACH STRIP IN SCH ×4 (05:25→23:15)
[2016-10-18] MEDS: MEROPENEM 500 MG in IV NS 0.9% 50 ML IV SCH ×3 (06:42→22:00)
[2016-10-18 07:32] VITALS: BP 121/72
[2016-10-18] MEDS: NITROFURANTOIN/NITROFURAN MAC 100 MG CAPSULE GT SCH ×2 (09:38→20:24)
[2016-10-18] MEDS: Z GUARD REMEDY 4 OZ OINT TP SCH ×2 (09:38→20:24)
[2016-10-18] MEDS: HYDROGEN PEROXIDE 480 ML BOTTLE TP SCH ×2 (09:38→20:24)
[2016-10-18] MEDS: LEVETIRACETAM SOL (5 ML) 100 MG/ML UDC GT SCH ×2 (09:38→20:24)
[2016-10-18] MEDS: PROSOURCE / PROSTAT (PYXIS) 30 ML UDC GT SCH ×2 (09:38→17:35)
[2016-10-18] MEDS: HYDROGEL DRESSING 90 GM TUBE TP SCH ×2 (09:38→20:24)
[2016-10-18] MEDS: CALCIUM CARBONATE 500 MG TAB.CHEW GT SCH ×2 (09:38→17:35)
[2016-10-18] MEDS: ASCORBIC ACID 500 MG TABLET GT SCH (09:38)
[2016-10-18] MEDS: ASPIRIN 81 MG TAB.CHEW GT SCH (09:38)
[2016-10-18] MEDS: ACIDOPHILUS/BULGARICUS 1 EACH TAB.CHEW GT SCH ×2 (09:38→17:35)
[2016-10-18] MEDS: TRILEPTAL GT SCH ×2 (09:38→20:24)
[2016-10-18] MEDS: VITAMINS A AND D 56.7 GM TUBE TP SCH ×2 (09:38→20:24)
[2016-10-18] MEDS: MVI/MINERALS LIQUID (CEROVITE) GT SCH (09:38)
[2016-10-18 19:51] VITALS: BP 118/77
[2016-10-19] MEDS: ALBUTEROL FS 2.5 MG/3 ML VIAL.NEB NEB SCH ×6 (03:28→23:20)
[2016-10-19] MEDS: BLOOD SUGAR DIAGNOSTIC 1 EACH STRIP IN SCH ×4 (05:09→23:23)
[2016-10-19] MEDS: DEXILANT 30 MG GT SCH (05:09)
[2016-10-19] MEDS: INSULIN REGULAR, HUMAN 100 UNIT/ML 3 ML VIAL SQ PRN ×3 (05:10→18:46)
[2016-10-19] MEDS: MEROPENEM 500 MG in IV NS 0.9% 50 ML IV SCH ×3 (05:29→21:41)
[2016-10-19 07:32] VITALS: BP 127/61
[2016-10-19] MEDS: MVI/MINERALS LIQUID (CEROVITE) GT SCH (09:00)
[2016-10-19] MEDS: TRILEPTAL GT SCH ×2 (09:00→21:14)
[2016-10-19] MEDS: ASCORBIC ACID 500 MG TABLET GT SCH (09:00)
[2016-10-19] MEDS: Z GUARD REMEDY 4 OZ OINT TP SCH ×2 (09:00→21:15)
[2016-10-19] MEDS: VITAMINS A AND D 56.7 GM TUBE TP SCH ×2 (09:00→21:15)
[2016-10-19] MEDS: NITROFURANTOIN/NITROFURAN MAC 100 MG CAPSULE GT SCH ×2 (09:00→21:14)
[2016-10-19] MEDS: ACIDOPHILUS/BULGARICUS 1 EACH TAB.CHEW GT SCH ×2 (09:00→17:00)
[2016-10-19] MEDS: CALCIUM CARBONATE 500 MG TAB.CHEW GT SCH ×2 (09:00→17:00)
[2016-10-19] MEDS: HYDROGEL DRESSING 90 GM TUBE TP SCH ×2 (09:00→21:15)
[2016-10-19] MEDS: PROSOURCE / PROSTAT (PYXIS) 30 ML UDC GT SCH ×2 (09:00→17:00)
[2016-10-19] MEDS: ASPIRIN 81 MG TAB.CHEW GT SCH (09:00)
[2016-10-19] MEDS: LEVETIRACETAM SOL (5 ML) 100 MG/ML UDC GT SCH ×2 (09:00→21:14)
[2016-10-19] MEDS: HYDROGEN PEROXIDE 480 ML BOTTLE TP SCH ×2 (09:00→21:15)
[2016-10-19 19:48] VITALS: BP 126/75
[2016-10-19 19:56] VITALS: BP 126/75
[2016-10-19] MEDS: GLYTROL 1,000 ML BAG GT PRN (23:24)
[2016-10-20] MEDS: ALBUTEROL FS 2.5 MG/3 ML VIAL.NEB NEB SCH ×6 (03:50→23:30)
[2016-10-20] MEDS: DEXILANT 30 MG GT SCH (05:28)
[2016-10-20] MEDS: BLOOD SUGAR DIAGNOSTIC 1 EACH STRIP IN SCH ×4 (05:28→23:44)
[2016-10-20] MEDS: MEROPENEM 500 MG in IV NS 0.9% 50 ML IV SCH ×3 (06:34→21:47)
[2016-10-20 07:39] VITALS: BP 101/65
[2016-10-20] MEDS: NITROFURANTOIN/NITROFURAN MAC 100 MG CAPSULE GT SCH ×2 (09:00→20:23)
[2016-10-20] MEDS: ACIDOPHILUS/BULGARICUS 1 EACH TAB.CHEW GT SCH ×2 (09:00→16:17)
[2016-10-20] MEDS: VITAMINS A AND D 56.7 GM TUBE TP SCH ×2 (09:00→20:24)
[2016-10-20] MEDS: PROSOURCE / PROSTAT (PYXIS) 30 ML UDC GT SCH ×2 (09:00→16:17)
[2016-10-20] MEDS: HYDROGEN PEROXIDE 480 ML BOTTLE TP SCH ×2 (09:00→20:23)
[2016-10-20] MEDS: Z GUARD REMEDY 4 OZ OINT TP SCH ×2 (09:00→20:24)
[2016-10-20] MEDS: ASPIRIN 81 MG TAB.CHEW GT SCH (09:00)
[2016-10-20] MEDS: TRILEPTAL GT SCH ×2 (09:00→20:23)
[2016-10-20] MEDS: LEVETIRACETAM SOL (5 ML) 100 MG/ML UDC GT SCH ×2 (09:00→20:23)
[2016-10-20] MEDS: CALCIUM CARBONATE 500 MG TAB.CHEW GT SCH ×2 (09:00→16:17)
[2016-10-20] MEDS: MVI/MINERALS LIQUID (CEROVITE) GT SCH (09:00)
[2016-10-20] MEDS: ASCORBIC ACID 500 MG TABLET GT SCH (09:00)
[2016-10-20] MEDS: HYDROGEL DRESSING 90 GM TUBE TP SCH ×2 (09:00→20:23)
[2016-10-20] MEDS: INSULIN REGULAR, HUMAN 100 UNIT/ML 3 ML VIAL SQ PRN ×2 (13:19→19:06)
[2016-10-20 20:26] VITALS: BP 119/73
[2016-10-21] MEDS: ALBUTEROL FS 2.5 MG/3 ML VIAL.NEB NEB SCH ×5 (03:30→20:21)
[2016-10-21] MEDS: DEXILANT 30 MG GT SCH (05:11)
[2016-10-21] MEDS: BLOOD SUGAR DIAGNOSTIC 1 EACH STRIP IN SCH ×4 (05:46→23:29)
[2016-10-21] MEDS: MEROPENEM 500 MG in IV NS 0.9% 50 ML IV SCH ×3 (06:18→22:00)
[2016-10-21 08:03] VITALS: BP 125/79
[2016-10-21 08:06] VITALS: BP 125/79
[2016-10-21] MEDS: HYDROGEN PEROXIDE 480 ML BOTTLE TP SCH ×2 (09:00→20:16)
[2016-10-21] MEDS: ASCORBIC ACID 500 MG TABLET GT SCH (09:00)
[2016-10-21] MEDS: Z GUARD REMEDY 4 OZ OINT TP SCH ×2 (09:00→20:16)
[2016-10-21] MEDS: PROSOURCE / PROSTAT (PYXIS) 30 ML UDC GT SCH ×2 (09:00→17:08)
[2016-10-21] MEDS: NITROFURANTOIN/NITROFURAN MAC 100 MG CAPSULE GT SCH ×2 (09:00→20:16)
[2016-10-21] MEDS: CALCIUM CARBONATE 500 MG TAB.CHEW GT SCH ×2 (09:00→17:08)
[2016-10-21] MEDS: HYDROGEL DRESSING 90 GM TUBE TP SCH ×2 (09:00→20:16)
[2016-10-21] MEDS: VITAMINS A AND D 56.7 GM TUBE TP SCH ×2 (09:00→20:16)
[2016-10-21] MEDS: MVI/MINERALS LIQUID (CEROVITE) GT SCH (09:00)
[2016-10-21] MEDS: ACIDOPHILUS/BULGARICUS 1 EACH TAB.CHEW GT SCH ×2 (09:00→17:07)
[2016-10-21] MEDS: TRILEPTAL GT SCH ×2 (09:00→20:16)
[2016-10-21] MEDS: LEVETIRACETAM SOL (5 ML) 100 MG/ML UDC GT SCH ×2 (09:00→20:16)
[2016-10-21] MEDS: ASPIRIN 81 MG TAB.CHEW GT SCH (09:00)
[2016-10-21] MEDS: INSULIN REGULAR, HUMAN 100 UNIT/ML 3 ML VIAL SQ PRN ×2 (13:53→18:08)
[2016-10-21 19:44] VITALS: BP 125/69
[2016-10-22] MEDS: ALBUTEROL FS 2.5 MG/3 ML VIAL.NEB NEB SCH ×7 (00:09→23:38)
[2016-10-22] MEDS: DEXILANT 30 MG GT SCH (05:13)
[2016-10-22] MEDS: MEROPENEM 500 MG in IV NS 0.9% 50 ML IV SCH ×3 (05:44→22:03)
[2016-10-22] MEDS: BLOOD SUGAR DIAGNOSTIC 1 EACH STRIP IN SCH ×4 (05:52→23:20)
[2016-10-22 07:38] VITALS: BP 101/54
[2016-10-22] MEDS: NITROFURANTOIN/NITROFURAN MAC 100 MG CAPSULE GT SCH ×2 (08:01→20:23)
[2016-10-22] MEDS: TRILEPTAL GT SCH ×2 (08:01→20:22)
[2016-10-22] MEDS: ACIDOPHILUS/BULGARICUS 1 EACH TAB.CHEW GT SCH ×2 (08:01→17:03)
[2016-10-22] MEDS: ASPIRIN 81 MG TAB.CHEW GT SCH (08:01)
[2016-10-22] MEDS: LEVETIRACETAM SOL (5 ML) 100 MG/ML UDC GT SCH ×2 (08:01→20:23)
[2016-10-22] MEDS: MVI/MINERALS LIQUID (CEROVITE) GT SCH (08:01)
[2016-10-22] MEDS: PROSOURCE / PROSTAT (PYXIS) 30 ML UDC GT SCH ×2 (08:01→17:03)
[2016-10-22] MEDS: ASCORBIC ACID 500 MG TABLET GT SCH (08:05)
[2016-10-22] MEDS: CALCIUM CARBONATE 500 MG TAB.CHEW GT SCH ×2 (08:05→17:03)
[2016-10-22] MEDS: HYDROGEN PEROXIDE 480 ML BOTTLE TP SCH ×2 (08:05→20:23)
[2016-10-22] MEDS: HYDROGEL DRESSING 90 GM TUBE TP SCH ×2 (08:05→20:23)
[2016-10-22] MEDS: Z GUARD REMEDY 4 OZ OINT TP SCH ×2 (08:05→20:23)
[2016-10-22] MEDS: VITAMINS A AND D 56.7 GM TUBE TP SCH ×2 (08:06→20:23)
[2016-10-22] MEDS: GLYTROL 1,000 ML BAG GT PRN (19:16)
[2016-10-22 20:21] VITALS: BP 111/70
[2016-10-23] MEDS: ALBUTEROL FS 2.5 MG/3 ML VIAL.NEB NEB SCH ×5 (03:30→19:54)
[2016-10-23] MEDS: DEXILANT 30 MG GT SCH (05:08)
[2016-10-23] MEDS: BLOOD SUGAR DIAGNOSTIC 1 EACH STRIP IN SCH ×4 (05:54→23:36)
[2016-10-23 07:34] VITALS: BP 132/78
[2016-10-23] MEDS: ACIDOPHILUS/BULGARICUS 1 EACH TAB.CHEW GT SCH ×2 (08:03→16:55)
[2016-10-23] MEDS: TRILEPTAL GT SCH ×2 (08:03→20:29)
[2016-10-23] MEDS: ASPIRIN 81 MG TAB.CHEW GT SCH (08:03)
[2016-10-23] MEDS: LEVETIRACETAM SOL (5 ML) 100 MG/ML UDC GT SCH ×2 (08:03→20:29)
[2016-10-23] MEDS: MVI/MINERALS LIQUID (CEROVITE) GT SCH (08:04)
[2016-10-23] MEDS: NITROFURANTOIN/NITROFURAN MAC 100 MG CAPSULE GT SCH ×2 (08:04→20:29)
[2016-10-23] MEDS: PROSOURCE / PROSTAT (PYXIS) 30 ML UDC GT SCH ×2 (08:04→16:55)
[2016-10-23] MEDS: CALCIUM CARBONATE 500 MG TAB.CHEW GT SCH ×2 (08:04→16:55)
[2016-10-23] MEDS: ASCORBIC ACID 500 MG TABLET GT SCH (08:05)
[2016-10-23] MEDS: Z GUARD REMEDY 4 OZ OINT TP SCH ×2 (08:06→20:30)
[2016-10-23] MEDS: HYDROGEN PEROXIDE 480 ML BOTTLE TP SCH ×2 (08:06→20:29)
[2016-10-23] MEDS: HYDROGEL DRESSING 90 GM TUBE TP SCH ×2 (08:06→20:29)
[2016-10-23] MEDS: VITAMINS A AND D 56.7 GM TUBE TP SCH ×2 (08:06→20:31)
[2016-10-23] MEDS: MEROPENEM 500 MG in IV NS 0.9% 50 ML IV SCH ×2 (14:00→22:00)
[2016-10-23] MEDS: GLYTROL 1,000 ML BAG GT PRN (17:08)
[2016-10-23 20:25] VITALS: BP 153/85
--- NOTE | 2016-10-23 22:05 | NUR ---
SA RN NOTES PT'S IV-HL INFILTRATED. PT HARDSTICK. CALLED QA SOFTWARE TEST ENGINEER FOR IV INSERTION. WILL CONTINUE TO MONITOR.
--- NOTE | 2016-10-23 22:10 | NUR ---
RN NOTES ICU DETENTION WORKER INSERTED IV-HL USING G 20 WITH GOOD BACKFLOW PATENT & INTACT. WILL CONTINUE TO MONITOR.
[2016-10-23] MEDS: INSULIN REGULAR, HUMAN 100 UNIT/ML 3 ML VIAL SQ PRN (23:36)
[2016-10-24] MEDS: ALBUTEROL FS 2.5 MG/3 ML VIAL.NEB NEB SCH ×7 (00:07→23:30)
[2016-10-24] MEDS: MAGNESIUM HYDROXIDE 30 ML UDC GT PRN (05:10)
[2016-10-24] MEDS: BLOOD SUGAR DIAGNOSTIC 1 EACH STRIP IN SCH ×4 (05:10→23:25)
[2016-10-24] MEDS: DEXILANT 30 MG GT SCH (05:10)
[2016-10-24] MEDS: INSULIN REGULAR, HUMAN 100 UNIT/ML 3 ML VIAL SQ PRN ×2 (05:10→23:25)
[2016-10-24] MEDS: BISACODYL SUPP (10 MG) 10 MG/SUPP.RECT SUPP.RECT RC PRN (05:10)
[2016-10-24] MEDS: MEROPENEM 500 MG in IV NS 0.9% 50 ML IV SCH ×3 (05:49→21:45)
[2016-10-24 06:32] LABS: BASOPHILS % (AUTO) 0.2 % (0.0-2.0); EOSINOPHILS % (AUTO) 6.7 % (0.0-6.0); HEMATOCRIT 27 % (33-45); HEMOGLOBIN 9.2 g/dL (11.5-14.8); LYMPHOCYTES % (AUTO) 21.3 % (20.0-44.0); MEAN CORPUSCULAR HEMOGLOBIN 33 PG (26.0-33.0); MEAN CORPUSCULAR HGB CONC 34 g/dl (31.0-36.0); MEAN CORPUSCULAR VOLUME 96 fL (82-100); NEUTROPHILS # (AUTO) 9.2 /CMM (1.8-8.9); NEUTROPHILS % (AUTO) 64.8 % (43.0-81.0); PLATELET COUNT (AUTO) 514 /CMM (150-450); RDW COEFFICIENT OF VARIATION 17.6 (11.5-15.0); RED BLOOD CELL COUNT(AUTO) 2.83 MIL/uL (4.0-5.2); WHITE BLOOD COUNT (AUTO) 14.2 K/uL (4.3-11.0)
[2016-10-24] MEDS: ASPIRIN 81 MG TAB.CHEW GT SCH (08:04)
[2016-10-24] MEDS: TRILEPTAL GT SCH ×2 (08:04→20:24)
[2016-10-24] MEDS: LEVETIRACETAM SOL (5 ML) 100 MG/ML UDC GT SCH ×2 (08:04→20:24)
[2016-10-24] MEDS: ACIDOPHILUS/BULGARICUS 1 EACH TAB.CHEW GT SCH ×2 (08:05→16:31)
[2016-10-24] MEDS: NITROFURANTOIN/NITROFURAN MAC 100 MG CAPSULE GT SCH ×2 (08:06→20:24)
[2016-10-24] MEDS: ASCORBIC ACID 500 MG TABLET GT SCH (08:06)
[2016-10-24] MEDS: HYDROGEL DRESSING 90 GM TUBE TP SCH ×2 (08:06→20:24)
[2016-10-24] MEDS: PROSOURCE / PROSTAT (PYXIS) 30 ML UDC GT SCH ×2 (08:06→16:31)
[2016-10-24] MEDS: Z GUARD REMEDY 4 OZ OINT TP SCH ×2 (08:06→20:24)
[2016-10-24] MEDS: HYDROGEN PEROXIDE 480 ML BOTTLE TP SCH ×2 (08:06→20:24)
[2016-10-24] MEDS: VITAMINS A AND D 56.7 GM TUBE TP SCH ×2 (08:06→20:24)
[2016-10-24] MEDS: CALCIUM CARBONATE 500 MG TAB.CHEW GT SCH ×2 (08:06→16:31)
[2016-10-24] MEDS: MVI/MINERALS LIQUID (CEROVITE) GT SCH (08:06)
[2016-10-24 08:33] VITALS: BP 101/59
--- NOTE | 2016-10-24 11:24 | NUR ---
Seen and examined by Dr. Jerry Montgomery, reviewed current labs, WBC 14.2, resident continue with IV ATB Merrem.
--- NOTE | 2016-10-24 14:00 | NUR ---
IDT meeting held, attended by sister Beckie. Reviewed current orders, medications, treatment and plan of care. Explained to family that after completion of ATB, will reculture urine to clear her from isolation. Family asked Dr. Felix if OK to use the speaking valve for her so she can communicate with her. Dr. Felix gave an order Ok to use PMV with RT supervision when family is around.
[2016-10-24 20:13] VITALS: BP 110/56
[2016-10-24 21:35] VITALS: BP 105/56
[2016-10-25] MEDS: ALBUTEROL FS 2.5 MG/3 ML VIAL.NEB NEB SCH ×6 (04:23→23:25)
[2016-10-25] MEDS: DEXILANT 30 MG GT SCH (05:10)
[2016-10-25] MEDS: INSULIN REGULAR, HUMAN 100 UNIT/ML 3 ML VIAL SQ PRN (05:10)
[2016-10-25] MEDS: BLOOD SUGAR DIAGNOSTIC 1 EACH STRIP IN SCH ×3 (05:10→17:11)
[2016-10-25] MEDS: GLYTROL 1,000 ML BAG GT PRN (05:10)
[2016-10-25 07:37] VITALS: BP 130/68
[2016-10-25] MEDS: CALCIUM CARBONATE 500 MG TAB.CHEW GT SCH ×2 (09:00→17:11)
[2016-10-25] MEDS: ASCORBIC ACID 500 MG TABLET GT SCH (09:00)
[2016-10-25] MEDS: ACIDOPHILUS/BULGARICUS 1 EACH TAB.CHEW GT SCH ×2 (09:59→17:10)
[2016-10-25] MEDS: TRILEPTAL GT SCH ×2 (09:59→20:32)
[2016-10-25] MEDS: LEVETIRACETAM SOL (5 ML) 100 MG/ML UDC GT SCH ×2 (09:59→20:32)
[2016-10-25] MEDS: ASPIRIN 81 MG TAB.CHEW GT SCH (09:59)
[2016-10-25] MEDS: MVI/MINERALS LIQUID (CEROVITE) GT SCH (09:59)
[2016-10-25] MEDS: PROSOURCE / PROSTAT (PYXIS) 30 ML UDC GT SCH ×2 (10:00→17:10)
[2016-10-25] MEDS: HYDROGEL DRESSING 90 GM TUBE TP SCH ×2 (14:45→21:00)
[2016-10-25] MEDS: VITAMINS A AND D 56.7 GM TUBE TP SCH ×2 (14:45→21:00)
[2016-10-25] MEDS: HYDROGEN PEROXIDE 480 ML BOTTLE TP SCH ×2 (14:45→21:00)
[2016-10-25] MEDS: Z GUARD REMEDY 4 OZ OINT TP SCH ×2 (14:45→21:00)
[2016-10-25 20:48] VITALS: BP 119/67
[2016-10-26] MEDS: BLOOD SUGAR DIAGNOSTIC 1 EACH STRIP IN SCH ×5 (00:16→23:46)
[2016-10-26] MEDS: INSULIN REGULAR, HUMAN 100 UNIT/ML 3 ML VIAL SQ PRN ×3 (00:17→11:03)
[2016-10-26] MEDS: GLYTROL 1,000 ML BAG GT PRN ×2 (00:34→21:18)
[2016-10-26] MEDS: ALBUTEROL FS 2.5 MG/3 ML VIAL.NEB NEB SCH ×6 (03:40→23:16)
[2016-10-26] MEDS: DEXILANT 30 MG GT SCH (06:26)
[2016-10-26 07:39] VITALS: BP 108/61
[2016-10-26] MEDS: ASCORBIC ACID 500 MG TABLET GT SCH (09:00)
[2016-10-26] MEDS: MVI/MINERALS LIQUID (CEROVITE) GT SCH (09:00)
[2016-10-26] MEDS: CALCIUM CARBONATE 500 MG TAB.CHEW GT SCH ×2 (09:00→16:25)
[2016-10-26] MEDS: ASPIRIN 81 MG TAB.CHEW GT SCH (09:00)
[2016-10-26] MEDS: TRILEPTAL GT SCH ×2 (09:00→21:17)
[2016-10-26] MEDS: LEVETIRACETAM SOL (5 ML) 100 MG/ML UDC GT SCH ×2 (09:00→21:17)
[2016-10-26] MEDS: ACIDOPHILUS/BULGARICUS 1 EACH TAB.CHEW GT SCH ×2 (09:00→16:24)
[2016-10-26] MEDS: PROSOURCE / PROSTAT (PYXIS) 30 ML UDC GT SCH ×2 (09:00→16:25)
[2016-10-26] MEDS: HYDROGEL DRESSING 90 GM TUBE TP SCH ×2 (09:04→21:17)
[2016-10-26] MEDS: VITAMINS A AND D 56.7 GM TUBE TP SCH ×2 (09:05→21:17)
[2016-10-26] MEDS: HYDROGEN PEROXIDE 480 ML BOTTLE TP SCH ×2 (09:05→21:17)
[2016-10-26] MEDS: Z GUARD REMEDY 4 OZ OINT TP SCH ×2 (09:05→21:17)
--- NOTE | 2016-10-26 12:10 | NUR ---
Seen and examined by Dr. Sabra MD assessed abdominal and noted to be distended, last bowel movement 2 days ago. MD ordered to do KUB today order noted and carried out. CARLA Maradiaga made aware of the new order.
--- NOTE | 2016-10-26 17:39 | NUR ---
Received KUB result reported to Dr. Montaño, per to ask Dr. Jackson to see the patient in the morning. Will endorse to the next shift accordingly. CARLA Maradiaga notified.
--- NOTE | 2016-10-26 18:16 | NUR ---
Received order from NAN Hathaway for urine collection for MRSA VRE post 48hrs antibiotic completed. Will endorse to night monitor nurse to collect.
[2016-10-26 20:00] VITALS: BP 120/73
[2016-10-27] MEDS: ALBUTEROL FS 2.5 MG/3 ML VIAL.NEB NEB SCH ×6 (03:43→23:30)
[2016-10-27] MEDS: DEXILANT 30 MG GT SCH (05:25)
[2016-10-27] MEDS: BLOOD SUGAR DIAGNOSTIC 1 EACH STRIP IN SCH ×4 (05:25→23:33)
[2016-10-27 08:28] VITALS: BP 112/62
[2016-10-27] MEDS: VITAMINS A AND D 56.7 GM TUBE TP SCH ×2 (09:00→20:16)
[2016-10-27] MEDS: PROSOURCE / PROSTAT (PYXIS) 30 ML UDC GT SCH ×2 (09:00→17:01)
[2016-10-27] MEDS: HYDROGEL DRESSING 90 GM TUBE TP SCH ×2 (09:00→20:16)
[2016-10-27] MEDS: ACIDOPHILUS/BULGARICUS 1 EACH TAB.CHEW GT SCH ×2 (09:00→17:01)
[2016-10-27] MEDS: CALCIUM CARBONATE 500 MG TAB.CHEW GT SCH ×2 (09:00→17:01)
[2016-10-27] MEDS: MVI/MINERALS LIQUID (CEROVITE) GT SCH (09:00)
[2016-10-27] MEDS: Z GUARD REMEDY 4 OZ OINT TP SCH ×2 (09:00→20:16)
[2016-10-27] MEDS: LEVETIRACETAM SOL (5 ML) 100 MG/ML UDC GT SCH ×2 (09:00→20:16)
[2016-10-27] MEDS: HYDROGEN PEROXIDE 480 ML BOTTLE TP SCH ×2 (09:00→20:16)
[2016-10-27] MEDS: ASCORBIC ACID 500 MG TABLET GT SCH (09:00)
[2016-10-27] MEDS: ASPIRIN 81 MG TAB.CHEW GT SCH (09:00)
[2016-10-27] MEDS: TRILEPTAL GT SCH ×2 (09:00→20:16)
--- NOTE | 2016-10-27 10:27 | NUR ---
Left message for Dr. Jackson for GI consult.
--- NOTE | 2016-10-27 11:48 | NUR ---
Called Dr. Jackson's office for GI consult. Dr. Billings is covering for Dr. Jackson. Called Dr. Billings , left message with Margaret.
[2016-10-27] MEDS: INSULIN REGULAR, HUMAN 100 UNIT/ML 3 ML VIAL SQ PRN ×2 (13:18→18:49)
--- NOTE | 2016-10-27 13:45 | NUR ---
Dr. Billings called and he said to call Dr. Ramsey. Called Dr. Ramsey's office, but office is currently closed for lunch. Will call again later.
--- NOTE | 2016-10-27 14:14 | NUR ---
Called Dr. Ramsey's office and left message with eNhal.
[2016-10-27 19:47] VITALS: BP 122/59
[2016-10-27] MEDS: GLYTROL 1,000 ML BAG GT PRN (21:17)
[2016-10-28] MEDS: ALBUTEROL FS 2.5 MG/3 ML VIAL.NEB NEB SCH ×6 (04:12→23:47)
[2016-10-28] MEDS: DEXILANT 30 MG GT SCH (05:12)
[2016-10-28] MEDS: BLOOD SUGAR DIAGNOSTIC 1 EACH STRIP IN SCH ×4 (05:58→23:25)
[2016-10-28 08:01] VITALS: BP 118/72
[2016-10-28] MEDS: ASCORBIC ACID 500 MG TABLET GT SCH (09:00)
[2016-10-28] MEDS: TRILEPTAL GT SCH ×2 (09:00→20:23)
[2016-10-28] MEDS: VITAMINS A AND D 56.7 GM TUBE TP SCH ×2 (09:00→20:23)
[2016-10-28] MEDS: LEVETIRACETAM SOL (5 ML) 100 MG/ML UDC GT SCH ×2 (09:00→20:23)
[2016-10-28] MEDS: ACIDOPHILUS/BULGARICUS 1 EACH TAB.CHEW GT SCH ×2 (09:00→17:00)
[2016-10-28] MEDS: Z GUARD REMEDY 4 OZ OINT TP SCH ×2 (09:00→20:23)
[2016-10-28] MEDS: CALCIUM CARBONATE 500 MG TAB.CHEW GT SCH ×2 (09:00→17:00)
[2016-10-28] MEDS: PROSOURCE / PROSTAT (PYXIS) 30 ML UDC GT SCH ×2 (09:00→17:00)
[2016-10-28] MEDS: HYDROGEL DRESSING 90 GM TUBE TP SCH ×2 (09:00→20:23)
[2016-10-28] MEDS: MVI/MINERALS LIQUID (CEROVITE) GT SCH (09:00)
[2016-10-28] MEDS: HYDROGEN PEROXIDE 480 ML BOTTLE TP SCH ×2 (09:00→20:23)
[2016-10-28] MEDS: ASPIRIN 81 MG TAB.CHEW GT SCH (09:00)
--- NOTE | 2016-10-28 10:47 | NUR ---
Called Dr. Ramsey's office. Left message with
--- NOTE | 2016-10-28 10:54 | NUR ---
Scheduled dental cleaning for 2pm. Notified sister beckie via voicemail. STEPHEN will follow up. Dentist will need assistance from sister as previous dental cleaning attempt was unsuccessful. Addendum: 10/28/16 at 1059 by BONITA MITCHELL 2pNovember 17, 2016 Addendum: 10/28/16 at 1548 by BONITA MITCHELL Sister Beckie called back and appreciated the information. She stated that she will try to be here and STEPHEN will remind her a few days prior.
[2016-10-28] MEDS: INSULIN REGULAR, HUMAN 100 UNIT/ML 3 ML VIAL SQ PRN ×2 (12:14→18:16)
[2016-10-28 19:25] VITALS: BP 117/71
[2016-10-29] MEDS: ALBUTEROL FS 2.5 MG/3 ML VIAL.NEB NEB SCH ×6 (04:02→23:31)
[2016-10-29] MEDS: DEXILANT 30 MG GT SCH (05:32)
[2016-10-29] MEDS: BLOOD SUGAR DIAGNOSTIC 1 EACH STRIP IN SCH ×4 (06:07→23:13)
[2016-10-29 08:00] VITALS: BP 135/77
[2016-10-29 08:18] VITALS: BP 135/77
[2016-10-29] MEDS: MVI/MINERALS LIQUID (CEROVITE) GT SCH (08:42)
[2016-10-29] MEDS: LEVETIRACETAM SOL (5 ML) 100 MG/ML UDC GT SCH ×2 (08:42→20:04)
[2016-10-29] MEDS: PROSOURCE / PROSTAT (PYXIS) 30 ML UDC GT SCH ×2 (08:42→17:52)
[2016-10-29] MEDS: ASPIRIN 81 MG TAB.CHEW GT SCH (08:42)
[2016-10-29] MEDS: ACIDOPHILUS/BULGARICUS 1 EACH TAB.CHEW GT SCH ×2 (08:42→17:52)
[2016-10-29] MEDS: ASCORBIC ACID 500 MG TABLET GT SCH (08:43)
[2016-10-29] MEDS: CALCIUM CARBONATE 500 MG TAB.CHEW GT SCH ×2 (08:43→17:52)
[2016-10-29] MEDS: HYDROGEN PEROXIDE 480 ML BOTTLE TP SCH ×2 (08:43→20:04)
[2016-10-29] MEDS: Z GUARD REMEDY 4 OZ OINT TP SCH ×2 (08:43→20:04)
[2016-10-29] MEDS: VITAMINS A AND D 56.7 GM TUBE TP SCH ×2 (08:43→20:04)
[2016-10-29] MEDS: HYDROGEL DRESSING 90 GM TUBE TP SCH ×2 (08:43→20:04)
[2016-10-29] MEDS: GLYTROL 1,000 ML BAG GT PRN (08:59)
[2016-10-29] MEDS: TRILEPTAL GT SCH ×2 (09:00→20:04)
--- NOTE | 2016-10-29 09:42 | NUR ---
Resident with episode of seizure approximately lasting about 10 seconds, OUTSOLE CEMENTER reported her arms and upper body is shaking with eyes and mouth wide open. Notified Dr. Felix, with new order for neurological consult. Left a message for Dr. Lance, neurologist. Awaiting for call back. Meanwhile PRN Ativan via GT given for seizure. Suctioned trach, no s/s of aspiration.
[2016-10-29] MEDS: LORAZEPAM 1 MG TABLET GT PRN (09:48)
--- NOTE | 2016-10-29 10:25 | NUR ---
Spoke with Rosalinda from Dr. Ramírez's office to follow-up regarding GI consult. Awaiting for MD's call back.
--- NOTE | 2016-10-29 10:50 | NUR ---
Dr. Ramsey returned the call, notified MD that GI consult was ordered because of abdominal KUB result showing "diffuse gaseous distention of the gastrointestinal tract with mild diminished distension of the small intestines; L renal staghorn calculus." Dr. Rasmey ordered IV Reglan 10mg. and small bowel follow-through with gastrografin. Order carried out.
--- NOTE | 2016-10-29 11:29 | NUR ---
Notified Dr. Ramsey, senior network engineer that per biosolids management technician Garry, patient had previous study with gastrografin. Since the contrast is already in her digestive system if small bowel follow-through with gastrografin is done it will be non-diagnostic. Dr. Ramsey ordered to DC the order. Resident had BM yesterday and last night. Left a message to Beckie, (sister) to give her an update of patient's condition.
[2016-10-29] MEDS ORDERED: METOCLOPRAMIDE HCL 10 MG/2 ML VIAL IV ONE (12:30)
--- NOTE | 2016-10-29 12:35 | NUR ---
Received a call from Dr. Lance she was made aware of neuro consult, but stated that she no longer see patient in subacute/medical patients. She said that if family is willing to pay privately, she has bottom crane operator program that they an sign up to. Notified CNO and SSD to arrange for another neurologist or if facility will pay Medicare rate to MD. Awaiting for response from SSD and CNO. Family c/o Beckie is aware.
--- NOTE | 2016-10-29 12:52 | NUR ---
Reglan IVP given, per pharmacy not to give PRN Phenergan 12 hours after administration. Endorsed to [employer] BARK CUTTER. Resident's sister Beckie called and updated her of patient's condition including seizure episode and Reglan IV that was ordered by adjuster electrical contacts. Appreciated the information given.
[2016-10-29] MEDS ORDERED: OXCARBAZEPINE 150 MG TABLET GT ONE (13:38)
[2016-10-29] MEDS: MAGNESIUM HYDROXIDE 30 ML UDC GT PRN (17:32)
[2016-10-29 20:51] VITALS: BP 123/72
[2016-10-30] MEDS: GLYTROL 1,000 ML BAG GT PRN ×2 (00:18→22:25)
[2016-10-30] MEDS: ALBUTEROL FS 2.5 MG/3 ML VIAL.NEB NEB SCH ×6 (02:30→22:52)
[2016-10-30] MEDS: DEXILANT 30 MG GT SCH (05:09)
[2016-10-30] MEDS: BLOOD SUGAR DIAGNOSTIC 1 EACH STRIP IN SCH ×3 (05:57→17:17)
[2016-10-30 07:49] VITALS: BP 128/90
[2016-10-30] MEDS: TRILEPTAL GT SCH ×2 (09:00→21:31)
[2016-10-30] MEDS: PROSOURCE / PROSTAT (PYXIS) 30 ML UDC GT SCH ×2 (09:32→17:02)
[2016-10-30] MEDS: LEVETIRACETAM SOL (5 ML) 100 MG/ML UDC GT SCH ×2 (09:32→21:31)
[2016-10-30] MEDS: MVI/MINERALS LIQUID (CEROVITE) GT SCH (09:32)
[2016-10-30] MEDS: ACIDOPHILUS/BULGARICUS 1 EACH TAB.CHEW GT SCH ×2 (09:32→17:02)
[2016-10-30] MEDS: CALCIUM CARBONATE 500 MG TAB.CHEW GT SCH ×2 (09:32→17:02)
[2016-10-30] MEDS: HYDROGEN PEROXIDE 480 ML BOTTLE TP SCH ×2 (09:32→21:31)
[2016-10-30] MEDS: ASCORBIC ACID 500 MG TABLET GT SCH (09:32)
[2016-10-30] MEDS: HYDROGEL DRESSING 90 GM TUBE TP SCH ×2 (09:32→21:31)
[2016-10-30] MEDS: ASPIRIN 81 MG TAB.CHEW GT SCH (09:32)
[2016-10-30] MEDS: VITAMINS A AND D 56.7 GM TUBE TP SCH ×2 (09:33→21:31)
[2016-10-30] MEDS: Z GUARD REMEDY 4 OZ OINT TP SCH ×2 (09:43→21:31)
--- NOTE | 2016-10-30 10:00 | NUR ---
Dr. Foley came to see pt. According to him, Dr. Ramsey requested him to see the pt. He said he already saw the KUB report and he is not ordering anything at this time.
--- NOTE | 2016-10-30 10:44 | NUR ---
STEPHEN contacted [facility] who stated that he will pay neurologist medicare rate. STEPHEN informed charge nurse that she spoke to the office of Dr. Katty Allen ( [address] [place] [address]; [phone]) yesterday and their office requested that physician contact her office in order to discuss the case with Dr. Allen. Dr. Allen will then see if she is willing to take on the case and come to the hospital to see them. Informed charge nurse who will notify Ramses Hathaway NP since Dr. Montaño is out on vacation. STEPHEN will follow up. Addendum: 10/30/16 at [address] Allen stated that she is not able to see the resident. Angelika nurse notified.
--- NOTE | 2016-10-30 11:25 | NUR ---
Notified Dr. Hathaway that pt needs a neuro consult, pt had a seizure yesterday. Requested him to call Dr. Allen, but he said to have Dr. Lance see the pt. Explained to him that Dr. Lance is not seeing the pt due to pt's insurance.
--- NOTE | 2016-10-30 14:55 | NUR ---
RT RECEIVED PT TRACHED ON [facility] VENT WITH SETTINGS PER MD ORDER. COMMERCIAL CREDIT HEAD DONE. BILAT RHONCHI BREATH SOUNDS ON AUSCULTATION. VENT PLUGGED INTO RED OUTLET. ALARMS ON AND FUNCTIONING PROPERLY. SPARE TRACH AND NEVA ABG AT BEDSIDE. SUCTIONED SMALL AMOUNTS OF THICK, PALE YELLOW SECRETIONS. TX'S GIVEN ORDERED. NO ADVERSE REACTIONS OBSERVED. NO SOB OR SIGNS OF DISTRESS NOTED AT THIS TIME. WILL CONTINUE TO MONITOR FOR ANY CHANGES. Addendum: 10/30/16 at 1646 by YAMIL MARTINEZ RT Amended: Links added.
--- NOTE | 2016-10-30 14:59 | NUR ---
STEPHEN faxed neurology consult paperwork to the office of Dr. Branden Duncan MD ([address], [place] [address] FAX: [phone]) and spoke to Ariana. Ariana stated that the doctor is able to come to the hospital for the visits and stated that they have to verify resident's insurance. STEPHEN faxed face sheet and H&P. STEPHEN will follow up.
[2016-10-30 19:18] VITALS: BP 110/65
[2016-10-30 19:47] VITALS: BP 106/64
[2016-10-31] MEDS: BLOOD SUGAR DIAGNOSTIC 1 EACH STRIP IN SCH ×3 (00:43→17:55)
[2016-10-31] MEDS: INSULIN REGULAR, HUMAN 100 UNIT/ML 3 ML VIAL SQ PRN (00:43)
[2016-10-31] MEDS: ALBUTEROL FS 2.5 MG/3 ML VIAL.NEB NEB SCH ×5 (02:36→19:12)
[2016-10-31] MEDS: DEXILANT 30 MG GT SCH (06:00)
[2016-10-31 07:40] VITALS: BP 126/64
[2016-10-31] MEDS: CALCIUM CARBONATE 500 MG TAB.CHEW GT SCH ×2 (08:22→17:54)
[2016-10-31] MEDS: ASPIRIN 81 MG TAB.CHEW GT SCH (08:22)
[2016-10-31] MEDS: ACIDOPHILUS/BULGARICUS 1 EACH TAB.CHEW GT SCH ×2 (08:22→17:54)
[2016-10-31] MEDS: ASCORBIC ACID 500 MG TABLET GT SCH (08:22)
[2016-10-31] MEDS: TRILEPTAL GT SCH ×2 (08:22→20:45)
[2016-10-31] MEDS: LEVETIRACETAM SOL (5 ML) 100 MG/ML UDC GT SCH ×2 (08:22→20:45)
[2016-10-31] MEDS: PROSOURCE / PROSTAT (PYXIS) 30 ML UDC GT SCH ×2 (08:22→17:54)
[2016-10-31] MEDS: MVI/MINERALS LIQUID (CEROVITE) GT SCH (08:22)
[2016-10-31] MEDS: HYDROGEL DRESSING 90 GM TUBE TP SCH ×2 (08:23→20:45)
[2016-10-31] MEDS: HYDROGEN PEROXIDE 480 ML BOTTLE TP SCH ×2 (08:24→20:45)
[2016-10-31] MEDS: Z GUARD REMEDY 4 OZ OINT TP SCH ×2 (08:24→20:45)
[2016-10-31] MEDS: VITAMINS A AND D 56.7 GM TUBE TP SCH ×2 (08:24→20:46)
--- NOTE | 2016-10-31 10:12 | NUR ---
Penelope called the office of Dr. Duncan to follow up about neuro consults. Went to [employer] and left a message. Left contact information. Attempted two other times since 9AM.
--- NOTE | 2016-10-31 11:22 | NUR ---
Seen by Dr. Jerry Montgomery, new order for labs in AM (CBC, BMP, Mg and Phos).
[2016-10-31 19:15] VITALS: BP 110/65
[2016-11-01] MEDS: ALBUTEROL FS 2.5 MG/3 ML VIAL.NEB NEB SCH ×7 (00:03→23:03)
[2016-11-01] MEDS: BLOOD SUGAR DIAGNOSTIC 1 EACH STRIP IN SCH ×5 (00:44→23:52)
[2016-11-01] MEDS: INSULIN REGULAR, HUMAN 100 UNIT/ML 3 ML VIAL SQ PRN ×2 (00:46→23:54)
[2016-11-01] MEDS: DEXILANT 30 MG GT SCH (06:00)
[2016-11-01 07:29] VITALS: BP 113/77
[2016-11-01 07:59] LABS: BASOPHILS # (AUTO) 0.1 /CMM (0.0-0.2); BASOPHILS % (AUTO) 0.5 % (0.0-2.0); EOSINOPHILS # (AUTO) 0.9 /CMM (0.0-0.7); EOSINOPHILS % (AUTO) 7.4 % (0.0-6.0); HEMATOCRIT 27 % (33-45); LYMPHOCYTES # (AUTO) 2.6 /CMM (0.8-4.8); LYMPHOCYTES % (AUTO) 22.3 % (20.0-44.0); MEAN CORPUSCULAR HEMOGLOBIN 33 PG (26.0-33.0); MEAN CORPUSCULAR HGB CONC 34 g/dl (31.0-36.0); MEAN CORPUSCULAR VOLUME 97 fL (82-100); MONOCYTES # (AUTO) 0.9 /CMM (0.1-1.30); MONOCYTES % (AUTO) 7.5 % (2.0-12.0); NEUTROPHILS # (AUTO) 7.3 /CMM (1.8-8.9); NEUTROPHILS % (AUTO) 62.3 % (43.0-81.0); PLATELET COUNT (AUTO) 527 /CMM (150-450); RED BLOOD CELL COUNT(AUTO) 2.77 MIL/uL (4.0-5.2); WHITE BLOOD COUNT (AUTO) 11.8 K/uL (4.3-11.0)
[2016-11-01 08:04] LABS: CALCIUM, SERUM 9.2 mg/dL (8.5-10.1); CREATININE 1.4 mg/dL (0.6-1.3); MAGNESIUM 2.6 mg/dL (1.8-2.4); PHOSPHORUS 4.1 mg/dL (2.5-4.9); POTASSIUM 4.3 mmol/L (3.5-5.1)
[2016-11-01] MEDS: ASPIRIN 81 MG TAB.CHEW GT SCH (09:00)
[2016-11-01] MEDS: MVI/MINERALS LIQUID (CEROVITE) GT SCH (09:00)
[2016-11-01] MEDS: PROSOURCE / PROSTAT (PYXIS) 30 ML UDC GT SCH ×2 (09:00→16:41)
[2016-11-01] MEDS: LEVETIRACETAM SOL (5 ML) 100 MG/ML UDC GT SCH ×2 (09:00→20:21)
[2016-11-01] MEDS: TRILEPTAL GT SCH ×2 (09:00→20:21)
[2016-11-01] MEDS: ASCORBIC ACID 500 MG TABLET GT SCH (09:00)
[2016-11-01] MEDS: ACIDOPHILUS/BULGARICUS 1 EACH TAB.CHEW GT SCH ×2 (09:00→16:40)
[2016-11-01] MEDS: CALCIUM CARBONATE 500 MG TAB.CHEW GT SCH ×2 (09:00→16:41)
[2016-11-01] MEDS: HYDROGEL DRESSING 90 GM TUBE TP SCH ×2 (11:00→21:00)
[2016-11-01] MEDS: VITAMINS A AND D 56.7 GM TUBE TP SCH ×2 (11:00→21:00)
[2016-11-01] MEDS: HYDROGEN PEROXIDE 480 ML BOTTLE TP SCH ×2 (11:00→21:00)
[2016-11-01] MEDS: Z GUARD REMEDY 4 OZ OINT TP SCH ×2 (11:00→21:00)
--- NOTE | 2016-11-01 11:05 | NUR ---
PMV TRIAL DONE. PT UNSUCCESSFUL ON PMV TRIAL. PT PERSISTENTLY COUGHING, UNABLE TO VENTILATE WELL. PLACED BACK ON AC MODE.
--- NOTE | 2016-11-01 11:20 | NUR ---
Resident very alert this morning, responding to stimulation and able to follow simple commands like squeezing hands, raising her arms and stating her name. Requested RT to try PMV as ordered to see if patient will elicit response. PMV trial unsuccessful due to persistent coughing. No episode of desaturation, O2 sat maintained above 96% with same vent setting.
[2016-11-01] MEDS: GLYTROL 1,000 ML BAG GT PRN (12:29)
[2016-11-01 20:07] VITALS: BP_SYST 100; BP_SYST 163; BP_DIAS 54; BP_DIAS 90
[2016-11-02] MEDS: GLYTROL 1,000 ML BAG GT PRN ×2 (02:47→18:53)
[2016-11-02] MEDS: ALBUTEROL FS 2.5 MG/3 ML VIAL.NEB NEB SCH ×5 (02:55→23:03)
[2016-11-02] MEDS: DEXILANT 30 MG GT SCH (05:02)
[2016-11-02] MEDS: INSULIN REGULAR, HUMAN 100 UNIT/ML 3 ML VIAL SQ PRN (05:45)
[2016-11-02] MEDS: BLOOD SUGAR DIAGNOSTIC 1 EACH STRIP IN SCH ×4 (05:45→23:41)
[2016-11-02 07:54] VITALS: BP 102/58
[2016-11-02] MEDS: MVI/MINERALS LIQUID (CEROVITE) GT SCH (08:41)
[2016-11-02] MEDS: LEVETIRACETAM SOL (5 ML) 100 MG/ML UDC GT SCH ×2 (08:41→21:05)
[2016-11-02] MEDS: VITAMINS A AND D 56.7 GM TUBE TP SCH ×2 (08:41→21:05)
[2016-11-02] MEDS: ASPIRIN 81 MG TAB.CHEW GT SCH (08:41)
[2016-11-02] MEDS: CALCIUM CARBONATE 500 MG TAB.CHEW GT SCH ×2 (08:41→16:11)
[2016-11-02] MEDS: TRILEPTAL GT SCH ×2 (08:41→21:05)
[2016-11-02] MEDS: ACIDOPHILUS/BULGARICUS 1 EACH TAB.CHEW GT SCH ×2 (08:41→16:11)
[2016-11-02] MEDS: Z GUARD REMEDY 4 OZ OINT TP SCH ×2 (08:41→21:05)
[2016-11-02] MEDS: HYDROGEL DRESSING 90 GM TUBE TP SCH ×2 (08:41→21:05)
[2016-11-02] MEDS: ASCORBIC ACID 500 MG TABLET GT SCH (08:41)
[2016-11-02] MEDS: PROSOURCE / PROSTAT (PYXIS) 30 ML UDC GT SCH ×2 (08:41→16:11)
[2016-11-02] MEDS: HYDROGEN PEROXIDE 480 ML BOTTLE TP SCH ×2 (09:00→21:05)
--- NOTE | 2016-11-02 09:38 | NUR ---
RECEIVED PATIENT ON APPROPRIATE SETTINGS. PT IS AWAKE BUT DOES NOT RESPOND TO COMMENDS. NO DISTRESS NOTED. CUFF HAS BEEN CHECKED AND FILLED WITH AIR. EXTRA TRACHE AND AMBUBAG ARE BY BEDSIDE. VENT IS PLUGGED INTO RED OUTLET. OLIVIA VERASP Addendum: 11/02/16 at 0942 by MARLA TRIPATHI RT Amended: Links added.
[2016-11-02 19:52] VITALS: BP 126/75
[2016-11-03] MEDS: ALBUTEROL FS 2.5 MG/3 ML VIAL.NEB NEB SCH ×6 (02:37→23:30)
[2016-11-03] MEDS: DEXILANT 30 MG GT SCH (05:51)
[2016-11-03] MEDS: BLOOD SUGAR DIAGNOSTIC 1 EACH STRIP IN SCH ×4 (05:51→23:13)
[2016-11-03 08:00] VITALS: BP 124/71
[2016-11-03] MEDS: ASPIRIN 81 MG TAB.CHEW GT SCH (09:00)
[2016-11-03] MEDS: PROSOURCE / PROSTAT (PYXIS) 30 ML UDC GT SCH ×2 (09:00→16:36)
[2016-11-03] MEDS: HYDROGEL DRESSING 90 GM TUBE TP SCH ×2 (09:00→20:38)
[2016-11-03] MEDS: HYDROGEN PEROXIDE 480 ML BOTTLE TP SCH ×2 (09:00→20:38)
[2016-11-03] MEDS: ASCORBIC ACID 500 MG TABLET GT SCH (09:00)
[2016-11-03] MEDS: TRILEPTAL GT SCH ×2 (09:00→20:38)
[2016-11-03] MEDS: VITAMINS A AND D 56.7 GM TUBE TP SCH ×2 (09:00→20:38)
[2016-11-03] MEDS: Z GUARD REMEDY 4 OZ OINT TP SCH ×2 (09:00→20:38)
[2016-11-03] MEDS: MVI/MINERALS LIQUID (CEROVITE) GT SCH (09:00)
[2016-11-03] MEDS: ACIDOPHILUS/BULGARICUS 1 EACH TAB.CHEW GT SCH ×2 (09:00→16:36)
[2016-11-03] MEDS: CALCIUM CARBONATE 500 MG TAB.CHEW GT SCH ×2 (09:00→16:37)
[2016-11-03] MEDS: LEVETIRACETAM SOL (5 ML) 100 MG/ML UDC GT SCH ×2 (09:00→20:38)
--- NOTE | 2016-11-03 11:45 | NUR ---
Seen by Dr. Felix. Notified him that according to BRIANNA Luevano, pt had an episode of following commands. He said he noticed the pt sometimes follows commands. No new order.
[2016-11-03] MEDS: INSULIN REGULAR, HUMAN 100 UNIT/ML 3 ML VIAL SQ PRN ×2 (11:49→18:39)
[2016-11-03] MEDS: GLYTROL 1,000 ML BAG GT PRN (16:37)
[2016-11-03 19:44] VITALS: BP 115/67
[2016-11-04] MEDS: ALBUTEROL FS 2.5 MG/3 ML VIAL.NEB NEB SCH ×6 (03:30→23:46)
[2016-11-04] MEDS: DEXILANT 30 MG GT SCH (05:11)
[2016-11-04] MEDS: BLOOD SUGAR DIAGNOSTIC 1 EACH STRIP IN SCH ×3 (05:11→18:31)
[2016-11-04 08:00] VITALS: BP 123/74
[2016-11-04] MEDS: MVI/MINERALS LIQUID (CEROVITE) GT SCH (09:00)
[2016-11-04] MEDS: CALCIUM CARBONATE 500 MG TAB.CHEW GT SCH ×2 (09:00→16:19)
[2016-11-04] MEDS: Z GUARD REMEDY 4 OZ OINT TP SCH ×2 (09:00→20:31)
[2016-11-04] MEDS: LEVETIRACETAM SOL (5 ML) 100 MG/ML UDC GT SCH ×2 (09:00→20:30)
[2016-11-04] MEDS: TRILEPTAL GT SCH ×2 (09:00→20:30)
[2016-11-04] MEDS: VITAMINS A AND D 56.7 GM TUBE TP SCH ×2 (09:00→20:31)
[2016-11-04] MEDS: ASCORBIC ACID 500 MG TABLET GT SCH (09:00)
[2016-11-04] MEDS: ASPIRIN 81 MG TAB.CHEW GT SCH (09:00)
[2016-11-04] MEDS: ACIDOPHILUS/BULGARICUS 1 EACH TAB.CHEW GT SCH ×2 (09:00→16:19)
[2016-11-04] MEDS: PROSOURCE / PROSTAT (PYXIS) 30 ML UDC GT SCH ×2 (09:00→16:19)
[2016-11-04] MEDS: HYDROGEN PEROXIDE 480 ML BOTTLE TP SCH ×2 (09:00→20:31)
--- NOTE | 2016-11-04 09:53 | NUR ---
STEPHEN called the office of Dr. Branden Duncan MD ([address] [facility], [place] [address] FAX: [phone]) and spoke to Ariana. Asked when Dr. Duncan was going to be able to come to the unit to see the resident. Ariana stated that she will page the doctor again and will talk to him when he comes into the office. STEPHEN asked if she can please call her to let her know what day/time and Ariana agreed. STEPHEN will follow up. Charge nurse notified.
--- NOTE | 2016-11-04 12:10 | NUR ---
Seen by Dr. Montaño. Notified him pt had a seizure episode last week and still awaiting for neurology consult. Received order to do Levetiracetam and Trileptal levels.
[2016-11-04 15:39] VITALS: BP_SYST 95
--- NOTE | 2016-11-04 15:51 | NUR ---
Spoke to the office of Dr. Branden Duncan MD ([address] [place] [address] FAX: [phone]) and notified membership secretary that she called this morning to follow up and did not hear back. She stated that she will page the doctor again and that he was currently at a different hospital but will see if he can come here after. charge nurse notified.
[2016-11-04] MEDS: INSULIN REGULAR, HUMAN 100 UNIT/ML 3 ML VIAL SQ PRN ×2 (16:17→18:32)
--- NOTE | 2016-11-04 18:34 | NUR ---
Dr. Duncan came but did not see pt. Notified him pt had a seizure last week and of the medications that pt is getting for seizure. He said he will talk with Dr. Estrada to see what he can do due to pt's insurance.
--- NOTE | 2016-11-04 19:45 | NUR ---
RN NOTES Seen and examined by Dr. Duncan with new order to increase Keppra to 1500mg BID, Ativan 2mg IV q4hr prn for seizure, EEG tomorrow, noted and carried out.
[2016-11-04 19:51] VITALS: BP 125/69
--- NOTE | 2016-11-05 | NUR ---
rn neonatal/notes blood sugar 102, no insulin coverages given , no signs of hypo glycemia noted. will continue to monitor.
[2016-11-05] MEDS: BLOOD SUGAR DIAGNOSTIC 1 EACH STRIP IN SCH ×5 (00:09→23:02)
[2016-11-05] MEDS: ALBUTEROL FS 2.5 MG/3 ML VIAL.NEB NEB SCH ×6 (03:30→22:50)
--- NOTE | 2016-11-05 06:00 | NUR ---
POWER PLANT SUPERINTENDENT/NOTES BLOOD SUGAR 97, NO INSULIN COVERAGES, NO SIGNS OF HYPO GLYCEMIA NOTED.
[2016-11-05] MEDS: GLYTROL 1,000 ML BAG GT PRN (06:26)
[2016-11-05] MEDS: DEXILANT 30 MG GT SCH (06:26)
[2016-11-05 07:45] VITALS: BP 108/62
[2016-11-05] MEDS: HYDROGEN PEROXIDE 480 ML BOTTLE TP SCH ×2 (09:00→20:24)
[2016-11-05] MEDS: ASCORBIC ACID 500 MG TABLET GT SCH (09:00)
[2016-11-05] MEDS: Z GUARD REMEDY 4 OZ OINT TP SCH ×2 (09:00→20:24)
[2016-11-05] MEDS: CALCIUM CARBONATE 500 MG TAB.CHEW GT SCH ×2 (09:00→17:59)
[2016-11-05] MEDS: PROSOURCE / PROSTAT (PYXIS) 30 ML UDC GT SCH ×2 (09:00→17:59)
[2016-11-05] MEDS: ASPIRIN 81 MG TAB.CHEW GT SCH (09:00)
[2016-11-05] MEDS: LEVETIRACETAM SOL (5 ML) 100 MG/ML UDC GT SCH ×2 (09:00→20:24)
[2016-11-05] MEDS: ACIDOPHILUS/BULGARICUS 1 EACH TAB.CHEW GT SCH ×2 (09:00→17:59)
[2016-11-05] MEDS: TRILEPTAL GT SCH ×2 (09:00→20:24)
[2016-11-05] MEDS: MVI/MINERALS LIQUID (CEROVITE) GT SCH (09:00)
[2016-11-05] MEDS: VITAMINS A AND D 56.7 GM TUBE TP SCH ×2 (09:00→20:24)
--- NOTE | 2016-11-05 09:54 | NUR ---
Spoke to Nena from the office of Dr. Duncan. Informed her that Dr. Duncan came yesterday to see the patient and ordered an EEG for today. Asked Nena if Dr. Duncan was going to be able to receive results and if there was a billing issue. She stated it should be fine and whatever the doctor ordered can be done.
[2016-11-05] MEDS: INSULIN REGULAR, HUMAN 100 UNIT/ML 3 ML VIAL SQ PRN ×3 (12:58→23:02)
--- NOTE | 2016-11-05 19:00 | NUR ---
EEG done, per histopathology technician he will notify Dr. Duncan to read the result.
[2016-11-05 19:57] VITALS: BP 114/66
[2016-11-05] MEDS: HYDROGEL DRESSING 90 GM TUBE TP SCH (20:24)
[2016-11-06] MEDS: GLYTROL 1,000 ML BAG GT PRN ×2 (00:57→18:07)
[2016-11-06] MEDS: ALBUTEROL FS 2.5 MG/3 ML VIAL.NEB NEB SCH ×6 (02:42→23:19)
[2016-11-06] MEDS: DEXILANT 30 MG GT SCH (05:22)
[2016-11-06] MEDS: BLOOD SUGAR DIAGNOSTIC 1 EACH STRIP IN SCH ×3 (05:22→17:27)
[2016-11-06] MEDS: INSULIN REGULAR, HUMAN 100 UNIT/ML 3 ML VIAL SQ PRN (05:23)
[2016-11-06 07:57] VITALS: BP 129/79
[2016-11-06] MEDS: ACIDOPHILUS/BULGARICUS 1 EACH TAB.CHEW GT SCH ×2 (08:20→16:23)
[2016-11-06] MEDS: MVI/MINERALS LIQUID (CEROVITE) GT SCH (08:20)
[2016-11-06] MEDS: PROSOURCE / PROSTAT (PYXIS) 30 ML UDC GT SCH ×2 (08:20→16:23)
[2016-11-06] MEDS: ASPIRIN 81 MG TAB.CHEW GT SCH (08:20)
[2016-11-06] MEDS: TRILEPTAL GT SCH ×2 (08:20→21:45)
[2016-11-06] MEDS: ASCORBIC ACID 500 MG TABLET GT SCH (08:20)
[2016-11-06] MEDS: LEVETIRACETAM SOL (5 ML) 100 MG/ML UDC GT SCH ×2 (08:20→21:45)
[2016-11-06] MEDS: CALCIUM CARBONATE 500 MG TAB.CHEW GT SCH ×2 (08:20→16:23)
[2016-11-06] MEDS: HYDROGEL DRESSING 90 GM TUBE TP SCH ×2 (08:21→21:00)
[2016-11-06] MEDS: HYDROGEN PEROXIDE 480 ML BOTTLE TP SCH ×2 (08:21→21:00)
[2016-11-06] MEDS: Z GUARD REMEDY 4 OZ OINT TP SCH ×2 (08:21→21:00)
[2016-11-06] MEDS: VITAMINS A AND D 56.7 GM TUBE TP SCH ×2 (08:21→21:00)
[2016-11-06 19:43] VITALS: BP 112/59
[2016-11-07] MEDS: INSULIN REGULAR, HUMAN 100 UNIT/ML 3 ML VIAL SQ PRN ×2 (00:43→05:55)
[2016-11-07] MEDS: BLOOD SUGAR DIAGNOSTIC 1 EACH STRIP IN SCH ×5 (00:43→23:42)
[2016-11-07] MEDS: ALBUTEROL FS 2.5 MG/3 ML VIAL.NEB NEB SCH ×6 (02:30→23:52)
[2016-11-07] MEDS: DEXILANT 30 MG GT SCH (05:55)
[2016-11-07] MEDS: CALCIUM CARBONATE 500 MG TAB.CHEW GT SCH ×2 (08:07→17:00)
[2016-11-07] MEDS: LEVETIRACETAM SOL (5 ML) 100 MG/ML UDC GT SCH ×2 (08:07→21:07)
[2016-11-07] MEDS: TRILEPTAL GT SCH ×2 (08:07→21:07)
[2016-11-07] MEDS: ASCORBIC ACID 500 MG TABLET GT SCH (08:07)
[2016-11-07] MEDS: ACIDOPHILUS/BULGARICUS 1 EACH TAB.CHEW GT SCH ×2 (08:07→17:00)
[2016-11-07] MEDS: ASPIRIN 81 MG TAB.CHEW GT SCH (08:07)
[2016-11-07] MEDS: PROSOURCE / PROSTAT (PYXIS) 30 ML UDC GT SCH ×2 (08:07→17:00)
[2016-11-07] MEDS: MVI/MINERALS LIQUID (CEROVITE) GT SCH (08:07)
[2016-11-07 08:33] VITALS: BP 114/68
[2016-11-07] MEDS: VITAMINS A AND D 56.7 GM TUBE TP SCH ×2 (09:00→21:07)
[2016-11-07] MEDS: HYDROGEN PEROXIDE 480 ML BOTTLE TP SCH ×2 (09:00→21:07)
[2016-11-07] MEDS: HYDROGEL DRESSING 90 GM TUBE TP SCH ×2 (09:00→21:07)
[2016-11-07] MEDS: Z GUARD REMEDY 4 OZ OINT TP SCH ×2 (09:00→21:07)
[2016-11-07 19:42] VITALS: BP 135/72
[2016-11-08] MEDS: ALBUTEROL FS 2.5 MG/3 ML VIAL.NEB NEB SCH ×6 (02:30→23:30)
[2016-11-08] MEDS: BLOOD SUGAR DIAGNOSTIC 1 EACH STRIP IN SCH ×3 (05:31→17:17)
[2016-11-08] MEDS: DEXILANT 30 MG GT SCH (05:31)
[2016-11-08] MEDS: GLYTROL 1,000 ML BAG GT PRN (05:32)
[2016-11-08 07:32] VITALS: BP 131/59
[2016-11-08] MEDS: ASPIRIN 81 MG TAB.CHEW GT SCH (09:50)
[2016-11-08] MEDS: PROSOURCE / PROSTAT (PYXIS) 30 ML UDC GT SCH ×2 (09:50→16:50)
[2016-11-08] MEDS: ACIDOPHILUS/BULGARICUS 1 EACH TAB.CHEW GT SCH ×2 (09:50→16:50)
[2016-11-08] MEDS: TRILEPTAL GT SCH ×2 (09:50→21:02)
[2016-11-08] MEDS: MVI/MINERALS LIQUID (CEROVITE) GT SCH (09:50)
[2016-11-08] MEDS: CALCIUM CARBONATE 500 MG TAB.CHEW GT SCH ×2 (09:50→16:50)
[2016-11-08] MEDS: ASCORBIC ACID 500 MG TABLET GT SCH (09:50)
[2016-11-08] MEDS: LEVETIRACETAM SOL (5 ML) 100 MG/ML UDC GT SCH ×2 (09:50→21:02)
[2016-11-08] MEDS: HYDROGEL DRESSING 90 GM TUBE TP SCH ×2 (09:51→21:02)
[2016-11-08] MEDS: VITAMINS A AND D 56.7 GM TUBE TP SCH ×2 (09:51→21:02)
[2016-11-08] MEDS: HYDROGEN PEROXIDE 480 ML BOTTLE TP SCH ×2 (09:51→21:02)
[2016-11-08] MEDS: Z GUARD REMEDY 4 OZ OINT TP SCH ×2 (09:51→21:02)
--- NOTE | 2016-11-08 15:30 | NUR ---
Notified NAN Loredo ID regarding urine culture result showing E Coli ESBL. Awaiting for orders.
--- NOTE | 2016-11-08 18:37 | NUR ---
Gertrude ordered Macrobid 100mg/ GT q 12 hours x 2 weeks for UTI, but per pharmacist Ramses Macrobid is not recommended if creatinine clearance is below 60, but he stated that he spoke with SECOND RIDE FARE COLLECTOR and it is OK to give because she was on this medication before. Order noted and carried out. Left a message to resident's sister Beckie regarding new order.
[2016-11-08 20:00] VITALS: BP 119/75
[2016-11-08] MEDS ORDERED: NITROFURANTOIN/NITROFURAN MAC 100 MG CAPSULE PO SCH (21:00)
[2016-11-08] MEDS: MAGNESIUM HYDROXIDE 30 ML UDC GT PRN (21:22)
[2016-11-08] MEDS: NITROFURANTOIN/NITROFURAN MAC 100 MG CAPSULE PO SCH (22:00)
[2016-11-09] MEDS: BLOOD SUGAR DIAGNOSTIC 1 EACH STRIP IN SCH ×5 (00:03→23:47)
[2016-11-09 00:07] LABS: LEVETIRACETAM 35.9 ug/mL (10.0-40.0)
[2016-11-09] MEDS: ALBUTEROL FS 2.5 MG/3 ML VIAL.NEB NEB SCH ×5 (03:30→19:18)
[2016-11-09] MEDS: DEXILANT 30 MG GT SCH (05:11)
[2016-11-09 07:31] VITALS: BP 115/70
[2016-11-09] MEDS: ASCORBIC ACID 500 MG TABLET GT SCH (09:04)
[2016-11-09] MEDS: HYDROGEL DRESSING 90 GM TUBE TP SCH ×2 (09:04→20:46)
[2016-11-09] MEDS: ASPIRIN 81 MG TAB.CHEW GT SCH (09:04)
[2016-11-09] MEDS: HYDROGEN PEROXIDE 480 ML BOTTLE TP SCH ×2 (09:04→20:46)
[2016-11-09] MEDS: CALCIUM CARBONATE 500 MG TAB.CHEW GT SCH ×2 (09:04→17:13)
[2016-11-09] MEDS: MVI/MINERALS LIQUID (CEROVITE) GT SCH (09:04)
[2016-11-09] MEDS: PROSOURCE / PROSTAT (PYXIS) 30 ML UDC GT SCH ×2 (09:04→17:13)
[2016-11-09] MEDS: ACIDOPHILUS/BULGARICUS 1 EACH TAB.CHEW PO SCH ×3 (09:04→17:13)
[2016-11-09] MEDS: TRILEPTAL GT SCH ×2 (09:04→20:45)
[2016-11-09] MEDS: NITROFURANTOIN/NITROFURAN MAC 100 MG CAPSULE PO SCH ×2 (09:04→20:45)
[2016-11-09] MEDS: LEVETIRACETAM SOL (5 ML) 100 MG/ML UDC GT SCH ×2 (09:04→20:45)
[2016-11-09] MEDS: Z GUARD REMEDY 4 OZ OINT TP SCH ×2 (09:05→20:46)
[2016-11-09] MEDS: VITAMINS A AND D 56.7 GM TUBE TP SCH ×2 (09:05→20:46)
[2016-11-09] MEDS: GLYTROL 1,000 ML BAG GT PRN (15:50)
[2016-11-09 19:57] VITALS: BP 107/67
[2016-11-10] MEDS: ALBUTEROL FS 2.5 MG/3 ML VIAL.NEB NEB SCH ×7 (00:07→23:30)
[2016-11-10] MEDS: DEXILANT 30 MG GT SCH (05:36)
[2016-11-10] MEDS: BLOOD SUGAR DIAGNOSTIC 1 EACH STRIP IN SCH ×3 (05:36→17:26)
[2016-11-10 07:51] VITALS: BP 128/62
[2016-11-10] MEDS: MVI/MINERALS LIQUID (CEROVITE) GT SCH (09:51)
[2016-11-10] MEDS: ASPIRIN 81 MG TAB.CHEW GT SCH (09:51)
[2016-11-10] MEDS: PROSOURCE / PROSTAT (PYXIS) 30 ML UDC GT SCH ×2 (09:51→17:26)
[2016-11-10] MEDS: CALCIUM CARBONATE 500 MG TAB.CHEW GT SCH ×2 (09:51→17:26)
[2016-11-10] MEDS: ASCORBIC ACID 500 MG TABLET GT SCH (09:51)
[2016-11-10] MEDS: LEVETIRACETAM SOL (5 ML) 100 MG/ML UDC GT SCH ×2 (09:51→21:21)
[2016-11-10] MEDS: TRILEPTAL GT SCH ×2 (09:51→21:21)
[2016-11-10] MEDS: NITROFURANTOIN/NITROFURAN MAC 100 MG CAPSULE PO SCH ×2 (09:51→21:21)
[2016-11-10] MEDS: ACIDOPHILUS/BULGARICUS 1 EACH TAB.CHEW PO SCH ×3 (09:51→17:26)
[2016-11-10] MEDS: Z GUARD REMEDY 4 OZ OINT TP SCH ×2 (11:00→21:21)
[2016-11-10] MEDS: HYDROGEN PEROXIDE 480 ML BOTTLE TP SCH ×2 (11:00→21:21)
[2016-11-10] MEDS: HYDROGEL DRESSING 90 GM TUBE TP SCH ×2 (11:00→21:21)
[2016-11-10] MEDS: VITAMINS A AND D 56.7 GM TUBE TP SCH ×2 (11:00→21:22)
[2016-11-10 20:04] VITALS: BP 117/78
[2016-11-11] MEDS: ALBUTEROL FS 2.5 MG/3 ML VIAL.NEB NEB SCH ×5 (03:30→20:24)
[2016-11-11] MEDS: DEXILANT 30 MG GT SCH (06:06)
[2016-11-11] MEDS: BLOOD SUGAR DIAGNOSTIC 1 EACH STRIP IN SCH ×4 (06:06→17:31)
[2016-11-11 07:39] VITALS: BP 107/59
[2016-11-11] MEDS: PROSOURCE / PROSTAT (PYXIS) 30 ML UDC GT SCH ×2 (08:10→16:52)
[2016-11-11] MEDS: TRILEPTAL GT SCH ×2 (08:10→21:06)
[2016-11-11] MEDS: CALCIUM CARBONATE 500 MG TAB.CHEW GT SCH ×2 (08:10→16:52)
[2016-11-11] MEDS: ACIDOPHILUS/BULGARICUS 1 EACH TAB.CHEW PO SCH ×3 (08:10→16:52)
[2016-11-11] MEDS: NITROFURANTOIN/NITROFURAN MAC 100 MG CAPSULE PO SCH ×2 (08:10→21:06)
[2016-11-11] MEDS: ASPIRIN 81 MG TAB.CHEW GT SCH (08:10)
[2016-11-11] MEDS: ASCORBIC ACID 500 MG TABLET GT SCH (08:10)
[2016-11-11] MEDS: LEVETIRACETAM SOL (5 ML) 100 MG/ML UDC GT SCH ×2 (08:10→21:06)
[2016-11-11] MEDS: MVI/MINERALS LIQUID (CEROVITE) GT SCH (08:10)
[2016-11-11] MEDS: Z GUARD REMEDY 4 OZ OINT TP SCH ×2 (11:30→21:06)
[2016-11-11] MEDS: VITAMINS A AND D 56.7 GM TUBE TP SCH ×2 (11:30→21:06)
[2016-11-11] MEDS: HYDROGEL DRESSING 90 GM TUBE TP SCH ×2 (11:30→21:06)
[2016-11-11] MEDS: HYDROGEN PEROXIDE 480 ML BOTTLE TP SCH ×2 (11:30→21:06)
[2016-11-11 19:43] VITALS: BP 117/72
[2016-11-12] MEDS: ALBUTEROL FS 2.5 MG/3 ML VIAL.NEB NEB SCH ×7 (00:28→23:10)
[2016-11-12] MEDS: BLOOD SUGAR DIAGNOSTIC 1 EACH STRIP IN SCH ×5 (06:02→23:50)
[2016-11-12] MEDS: DEXILANT 30 MG GT SCH (06:02)
[2016-11-12 07:31] VITALS: BP 128/78
[2016-11-12] MEDS: TRILEPTAL GT SCH ×2 (09:00→20:47)
[2016-11-12] MEDS: NITROFURANTOIN/NITROFURAN MAC 100 MG CAPSULE PO SCH ×2 (09:00→20:47)
[2016-11-12] MEDS: LEVETIRACETAM SOL (5 ML) 100 MG/ML UDC GT SCH ×2 (09:00→20:47)
[2016-11-12] MEDS: ASCORBIC ACID 500 MG TABLET GT SCH (09:00)
[2016-11-12] MEDS: CALCIUM CARBONATE 500 MG TAB.CHEW GT SCH ×2 (09:00→17:52)
[2016-11-12] MEDS: ACIDOPHILUS/BULGARICUS 1 EACH TAB.CHEW PO SCH ×3 (09:00→17:52)
[2016-11-12] MEDS: PROSOURCE / PROSTAT (PYXIS) 30 ML UDC GT SCH ×2 (09:00→17:52)
[2016-11-12] MEDS: MVI/MINERALS LIQUID (CEROVITE) GT SCH (09:00)
[2016-11-12] MEDS: ASPIRIN 81 MG TAB.CHEW GT SCH (09:00)
--- NOTE | 2016-11-12 10:20 | NUR ---
Called the office of Dr. Duncan to inquire if he was able to read the result of the EEG. Called once at 9:30AM and again at 10:20. No answer and left a voice message. Will attempt again.
[2016-11-12] MEDS: GLYTROL 1,000 ML BAG GT PRN (12:53)
[2016-11-12] MEDS: INSULIN REGULAR, HUMAN 100 UNIT/ML 3 ML VIAL SQ PRN ×3 (13:10→23:50)
--- NOTE | 2016-11-12 14:27 | NUR ---
Called the office of Dr. Duncan and spoke to the pathology secretary. She stated that she will page the doctor and notify him that he needs to read the EEG results. SW left her contact information
[2016-11-12] MEDS: HYDROGEN PEROXIDE 480 ML BOTTLE TP SCH ×2 (17:52→21:38)
[2016-11-12] MEDS: VITAMINS A AND D 56.7 GM TUBE TP SCH ×2 (17:52→21:39)
[2016-11-12] MEDS: HYDROGEL DRESSING 90 GM TUBE TP SCH ×2 (17:52→21:38)
[2016-11-12] MEDS: Z GUARD REMEDY 4 OZ OINT TP SCH ×2 (17:52→21:38)
[2016-11-13 00:09] VITALS: BP 146/88
[2016-11-13] MEDS: ALBUTEROL FS 2.5 MG/3 ML VIAL.NEB NEB SCH ×6 (02:34→23:10)
[2016-11-13] MEDS: INSULIN REGULAR, HUMAN 100 UNIT/ML 3 ML VIAL SQ PRN (05:40)
[2016-11-13] MEDS: BLOOD SUGAR DIAGNOSTIC 1 EACH STRIP IN SCH ×3 (05:40→18:05)
[2016-11-13] MEDS: DEXILANT 30 MG GT SCH (05:43)
[2016-11-13] MEDS: GLYTROL 1,000 ML BAG GT PRN ×2 (05:43→22:19)
[2016-11-13 07:25] VITALS: BP 133/60
--- NOTE | 2016-11-13 07:50 | NUR ---
Received a voicemail from the office of Dr. Duncan. He stated that he already read the EEG results for the resident and gave a resident number of [id number] with dictation number of [id number] since he did not have a facesheet. Charge nurse informed.
[2016-11-13] MEDS: Z GUARD REMEDY 4 OZ OINT TP SCH ×2 (08:05→21:01)
[2016-11-13] MEDS: NITROFURANTOIN/NITROFURAN MAC 100 MG CAPSULE PO SCH ×2 (08:05→21:01)
[2016-11-13] MEDS: ASCORBIC ACID 500 MG TABLET GT SCH (08:05)
[2016-11-13] MEDS: TRILEPTAL GT SCH ×2 (08:05→21:01)
[2016-11-13] MEDS: HYDROGEL DRESSING 90 GM TUBE TP SCH ×2 (08:05→21:01)
[2016-11-13] MEDS: PROSOURCE / PROSTAT (PYXIS) 30 ML UDC GT SCH ×2 (08:05→16:36)
[2016-11-13] MEDS: CALCIUM CARBONATE 500 MG TAB.CHEW GT SCH ×2 (08:05→16:36)
[2016-11-13] MEDS: ACIDOPHILUS/BULGARICUS 1 EACH TAB.CHEW PO SCH ×3 (08:05→16:36)
[2016-11-13] MEDS: ASPIRIN 81 MG TAB.CHEW GT SCH (08:05)
[2016-11-13] MEDS: HYDROGEN PEROXIDE 480 ML BOTTLE TP SCH ×2 (08:05→21:01)
[2016-11-13] MEDS: MVI/MINERALS LIQUID (CEROVITE) GT SCH (08:05)
[2016-11-13] MEDS: LEVETIRACETAM SOL (5 ML) 100 MG/ML UDC GT SCH ×2 (08:05→21:01)
[2016-11-13] MEDS: VITAMINS A AND D 56.7 GM TUBE TP SCH ×2 (08:06→21:01)
[2016-11-13] MEDS ORDERED: LORAZEPAM 1 MG TABLET GT PRN (10:30)
--- NOTE | 2016-11-13 11:03 | NUR ---
Patient is on her monthly period. Will continue to monitor.
[2016-11-14] MEDS: INSULIN REGULAR, HUMAN 100 UNIT/ML 3 ML VIAL SQ PRN ×2 (00:07→05:41)
[2016-11-14] MEDS: BLOOD SUGAR DIAGNOSTIC 1 EACH STRIP IN SCH ×4 (00:07→17:13)
[2016-11-14 01:23] VITALS: BP 129/87
[2016-11-14] MEDS: ALBUTEROL FS 2.5 MG/3 ML VIAL.NEB NEB SCH ×6 (03:03→23:17)
[2016-11-14] MEDS: DEXILANT 30 MG GT SCH (05:41)
[2016-11-14 07:38] VITALS: BP 155/72
[2016-11-14] MEDS: ASPIRIN 81 MG TAB.CHEW GT SCH (08:20)
[2016-11-14] MEDS: TRILEPTAL GT SCH ×2 (08:20→20:16)
[2016-11-14] MEDS: MVI/MINERALS LIQUID (CEROVITE) GT SCH (08:20)
[2016-11-14] MEDS: LEVETIRACETAM SOL (5 ML) 100 MG/ML UDC GT SCH ×2 (08:20→20:16)
[2016-11-14] MEDS: CALCIUM CARBONATE 500 MG TAB.CHEW GT SCH ×2 (08:21→17:13)
[2016-11-14] MEDS: ACIDOPHILUS/BULGARICUS 1 EACH TAB.CHEW PO SCH ×3 (08:21→17:13)
[2016-11-14] MEDS: ASCORBIC ACID 500 MG TABLET GT SCH (08:21)
[2016-11-14] MEDS: NITROFURANTOIN/NITROFURAN MAC 100 MG CAPSULE PO SCH ×2 (08:21→20:16)
[2016-11-14] MEDS: PROSOURCE / PROSTAT (PYXIS) 30 ML UDC GT SCH ×2 (08:21→17:13)
[2016-11-14] MEDS: VITAMINS A AND D 56.7 GM TUBE TP SCH ×2 (11:00→20:17)
[2016-11-14] MEDS: Z GUARD REMEDY 4 OZ OINT TP SCH ×2 (11:00→20:17)
[2016-11-14] MEDS: HYDROGEN PEROXIDE 480 ML BOTTLE TP SCH ×2 (11:00→20:17)
[2016-11-14] MEDS: HYDROGEL DRESSING 90 GM TUBE TP SCH ×2 (11:00→20:16)
--- NOTE | 2016-11-14 13:48 | NUR ---
IDT meeting held, Beckie and her daughter attended the meeting. Current orders, new medications, treatment and plan of care reviewed. MD Felix explained to family the EEG result. It was mentioned that resident is more responsive to stimulation and able to follow command although not observed consistently. New order given by to start weaning patient on Thursday11/17/16 with SIMV 4, PS 15 Peep 5. Beckie pleased with the order and patient's progress.
--- NOTE | 2016-11-14 14:16 | NUR ---
Set a meeting with Dr. Montaño and resident's sister Beckie , as she wants to speak to him. Notified Dr. Montaño that Beckie will be here Thursday around 2 to meet with the dentist but she should be available around 2:15pm/ 2:30pm. Dr Montaño stated "okay." Informed sister Beckie.
[2016-11-14] MEDS: GLYTROL 1,000 ML BAG GT PRN (17:29)
[2016-11-14 20:12] VITALS: BP 119/82
[2016-11-14] MEDS: CODEINE/PROMETHAZINE HCL 5 ML UDC GT PRN (21:45)
[2016-11-15] MEDS: INSULIN REGULAR, HUMAN 100 UNIT/ML 3 ML VIAL SQ PRN ×2 (00:04→05:23)
[2016-11-15] MEDS: BLOOD SUGAR DIAGNOSTIC 1 EACH STRIP IN SCH ×4 (00:04→17:22)
[2016-11-15] MEDS: ALBUTEROL FS 2.5 MG/3 ML VIAL.NEB NEB SCH ×6 (02:33→23:22)
[2016-11-15] MEDS: DEXILANT 30 MG GT SCH (05:22)
--- NOTE | 2016-11-15 06:32 | NUR ---
Pt awake and calm, tolerated her gtf, meds, flushes and txs, still on her menstrual period- 3rd day today moderate flow noted, no s/sx of discomfort noted, good taj care provided. Safety and comfort observed.
[2016-11-15 07:25] VITALS: BP 110/62
[2016-11-15] MEDS: LEVETIRACETAM SOL (5 ML) 100 MG/ML UDC GT SCH ×2 (09:09→21:03)
[2016-11-15] MEDS: PROSOURCE / PROSTAT (PYXIS) 30 ML UDC GT SCH ×2 (09:09→16:31)
[2016-11-15] MEDS: HYDROGEL DRESSING 90 GM TUBE TP SCH ×2 (09:09→21:03)
[2016-11-15] MEDS: CALCIUM CARBONATE 500 MG TAB.CHEW GT SCH ×2 (09:09→16:31)
[2016-11-15] MEDS: NITROFURANTOIN/NITROFURAN MAC 100 MG CAPSULE PO SCH ×2 (09:09→21:03)
[2016-11-15] MEDS: MVI/MINERALS LIQUID (CEROVITE) GT SCH (09:09)
[2016-11-15] MEDS: VITAMINS A AND D 56.7 GM TUBE TP SCH ×2 (09:09→21:03)
[2016-11-15] MEDS: ACIDOPHILUS/BULGARICUS 1 EACH TAB.CHEW PO SCH ×3 (09:09→16:31)
[2016-11-15] MEDS: Z GUARD REMEDY 4 OZ OINT TP SCH ×2 (09:09→21:03)
[2016-11-15] MEDS: HYDROGEN PEROXIDE 480 ML BOTTLE TP SCH ×2 (09:09→21:03)
[2016-11-15] MEDS: ASPIRIN 81 MG TAB.CHEW GT SCH (09:09)
[2016-11-15] MEDS: ASCORBIC ACID 500 MG TABLET GT SCH (09:09)
[2016-11-15] MEDS: TRILEPTAL GT SCH ×2 (09:09→21:03)
[2016-11-15] MEDS: GLYTROL 1,000 ML BAG GT PRN (12:34)
[2016-11-15 19:56] VITALS: BP 142/80
[2016-11-16] MEDS: BLOOD SUGAR DIAGNOSTIC 1 EACH STRIP IN SCH ×4 (00:45→17:17)
[2016-11-16] MEDS: GLYTROL 1,000 ML BAG GT PRN (00:45)
[2016-11-16] MEDS: ALBUTEROL FS 2.5 MG/3 ML VIAL.NEB NEB SCH ×6 (02:30→23:22)
[2016-11-16] MEDS: DEXILANT 30 MG GT SCH (05:22)
[2016-11-16 07:56] VITALS: BP 110/66
[2016-11-16] MEDS: ASCORBIC ACID 500 MG TABLET GT SCH (09:22)
[2016-11-16] MEDS: PROSOURCE / PROSTAT (PYXIS) 30 ML UDC GT SCH ×2 (09:22→16:26)
[2016-11-16] MEDS: LEVETIRACETAM SOL (5 ML) 100 MG/ML UDC GT SCH ×2 (09:22→20:57)
[2016-11-16] MEDS: ASPIRIN 81 MG TAB.CHEW GT SCH (09:22)
[2016-11-16] MEDS: CALCIUM CARBONATE 500 MG TAB.CHEW GT SCH ×2 (09:22→16:26)
[2016-11-16] MEDS: MVI/MINERALS LIQUID (CEROVITE) GT SCH (09:22)
[2016-11-16] MEDS: ACIDOPHILUS/BULGARICUS 1 EACH TAB.CHEW PO SCH ×3 (09:22→16:26)
[2016-11-16] MEDS: TRILEPTAL GT SCH ×2 (09:22→20:56)
[2016-11-16] MEDS: HYDROGEN PEROXIDE 480 ML BOTTLE TP SCH ×2 (09:26→20:57)
[2016-11-16] MEDS: NITROFURANTOIN/NITROFURAN MAC 100 MG CAPSULE PO SCH (09:27)
[2016-11-16] MEDS: Z GUARD REMEDY 4 OZ OINT TP SCH ×2 (09:27→20:57)
[2016-11-16] MEDS: HYDROGEL DRESSING 90 GM TUBE TP SCH ×2 (09:27→20:57)
[2016-11-16] MEDS: VITAMINS A AND D 56.7 GM TUBE TP SCH ×2 (09:27→20:57)
[2016-11-16 19:53] VITALS: BP 142/77
[2016-11-17] MEDS: BLOOD SUGAR DIAGNOSTIC 1 EACH STRIP IN SCH ×4 (00:25→18:16)
[2016-11-17] MEDS: ALBUTEROL FS 2.5 MG/3 ML VIAL.NEB NEB SCH ×6 (03:19→23:30)
[2016-11-17] MEDS: DEXILANT 30 MG GT SCH (05:27)
[2016-11-17 07:31] VITALS: BP 129/66
[2016-11-17] MEDS: HYDROGEL DRESSING 90 GM TUBE TP SCH ×2 (09:00→20:06)
[2016-11-17] MEDS: Z GUARD REMEDY 4 OZ OINT TP SCH ×2 (09:00→20:07)
[2016-11-17] MEDS: HYDROGEN PEROXIDE 480 ML BOTTLE TP SCH ×2 (09:00→20:06)
[2016-11-17] MEDS: VITAMINS A AND D 56.7 GM TUBE TP SCH ×2 (09:00→20:07)
[2016-11-17] MEDS: MVI/MINERALS LIQUID (CEROVITE) GT SCH (09:56)
[2016-11-17] MEDS: ASPIRIN 81 MG TAB.CHEW GT SCH (09:56)
[2016-11-17] MEDS: TRILEPTAL GT SCH ×2 (09:56→20:06)
[2016-11-17] MEDS: CALCIUM CARBONATE 500 MG TAB.CHEW GT SCH ×2 (09:56→17:30)
[2016-11-17] MEDS: ACIDOPHILUS/BULGARICUS 1 EACH TAB.CHEW PO SCH ×3 (09:56→17:30)
[2016-11-17] MEDS: ASCORBIC ACID 500 MG TABLET GT SCH (09:56)
[2016-11-17] MEDS: LEVETIRACETAM SOL (5 ML) 100 MG/ML UDC GT SCH ×2 (09:56→20:06)
[2016-11-17] MEDS: PROSOURCE / PROSTAT (PYXIS) 30 ML UDC GT SCH ×2 (09:56→17:30)
[2016-11-17 10:22] LABS: ABG BASE EXCESS -1.2 mmol/L; ABG OXYGEN SATURATION 97.9 % (92.0-98.5); ABG PCO2 40.8 mmHg (35.0-45.0); ABG PH 7.383 (7.350-7.450); ABG PO2 137.5 mmHg (75.0-100.0); AaDO2 28.5 mmHg; COHb 0.6 % (0.5-1.5); O2Hb 96.3 % (94.0-97.0); PEEP,BG 5 cm H2O; SITE, ABG Left Radial
--- NOTE | 2016-11-17 10:22 | NUR ---
Pt was placed on SIMV 4 PS 12 Peep 5 by RT Murry. ABG was done, result relayed to Dr. Felix. Pt tolerating SIMV well. Dr. Felix ordered to keep pt on SIMV as tolerated. Addendum: 11/17/16 at 1025 by SARITA GOMEZ RN Dr. Felix aware pt is on SIMV 4 PS 12 Peep 5.
[2016-11-17] MEDS: INSULIN REGULAR, HUMAN 100 UNIT/ML 3 ML VIAL SQ PRN ×2 (12:52→18:16)
--- NOTE | 2016-11-17 15:00 | NUR ---
Resident was seen by Dr. Reggie SORIANO for a dental cleaning today. Sister was present to help him. She also met with Dr. Montaño to share her concerns.
--- NOTE | 2016-11-17 15:45 | NUR ---
Seen by Dr. Paredes for dental prophylaxis. Pt's sister at bedside. No new order from Dr. Paredes. Dr. Montaño also came to see pt and he spoke with pt's sister. Dr. Montaño ordered CT scan of abdomen and pelvis to follow up on abdominal distention. Addendum: 11/17/16 at 1556 by SARITA GOMEZ RN Notified pt's sister that pt is tolerating weaning well.
[2016-11-17 19:43] VITALS: BP 130/67
--- NOTE | 2016-11-17 20:00 | NUR ---
RN NOTES Received pt on SIMV 4 PS 12 Peep 5, tolerating well. No SOB or resp distress noted. Will continue to monitor.
[2016-11-18] MEDS: BLOOD SUGAR DIAGNOSTIC 1 EACH STRIP IN SCH ×4 (00:02→18:30)
[2016-11-18] MEDS: ALBUTEROL FS 2.5 MG/3 ML VIAL.NEB NEB SCH ×6 (03:30→23:30)
[2016-11-18] MEDS: DEXILANT 30 MG GT SCH (05:26)
[2016-11-18 07:48] VITALS: BP 126/56
[2016-11-18] MEDS: ASPIRIN 81 MG TAB.CHEW GT SCH (08:52)
[2016-11-18] MEDS: ASCORBIC ACID 500 MG TABLET GT SCH (08:53)
[2016-11-18] MEDS: Z GUARD REMEDY 4 OZ OINT TP SCH ×2 (08:53→20:04)
[2016-11-18] MEDS: LEVETIRACETAM SOL (5 ML) 100 MG/ML UDC GT SCH ×2 (08:53→20:04)
[2016-11-18] MEDS: PROSOURCE / PROSTAT (PYXIS) 30 ML UDC GT SCH ×2 (08:53→17:28)
[2016-11-18] MEDS: HYDROGEN PEROXIDE 480 ML BOTTLE TP SCH ×2 (08:53→20:04)
[2016-11-18] MEDS: ACIDOPHILUS/BULGARICUS 1 EACH TAB.CHEW PO SCH ×3 (08:53→17:28)
[2016-11-18] MEDS: CALCIUM CARBONATE 500 MG TAB.CHEW GT SCH ×2 (08:53→17:28)
[2016-11-18] MEDS: VITAMINS A AND D 56.7 GM TUBE TP SCH ×2 (08:53→20:05)
[2016-11-18] MEDS: MVI/MINERALS LIQUID (CEROVITE) GT SCH (08:53)
[2016-11-18] MEDS: HYDROGEL DRESSING 90 GM TUBE TP SCH ×2 (08:53→20:04)
[2016-11-18] MEDS: TRILEPTAL GT SCH ×2 (08:53→20:04)
--- NOTE | 2016-11-18 11:00 | NUR ---
Dr. Felix ordered to advance weaning trial to cool aerosol tomorrow 11/19/16, ABG in 1 hour after placing pt on cool aerosol.
[2016-11-18] MEDS: INSULIN REGULAR, HUMAN 100 UNIT/ML 3 ML VIAL SQ PRN ×2 (12:07→18:33)
[2016-11-18 19:40] VITALS: BP 122/67
--- NOTE | 2016-11-18 20:00 | NUR ---
RN NOTES Pt remains on SIMV 4 PS 12 Peep 5, tolerating well. No SOB or resp distress noted. Will continue to monitor.
[2016-11-19] MEDS: BLOOD SUGAR DIAGNOSTIC 1 EACH STRIP IN SCH ×4 (00:04→17:37)
[2016-11-19] MEDS: ALBUTEROL FS 2.5 MG/3 ML VIAL.NEB NEB SCH ×6 (04:20→23:44)
[2016-11-19] MEDS: DEXILANT 30 MG GT SCH (05:25)
[2016-11-19] MEDS: INSULIN REGULAR, HUMAN 100 UNIT/ML 3 ML VIAL SQ PRN (05:26)
[2016-11-19 07:46] VITALS: BP 127/73
[2016-11-19] MEDS: HYDROGEL DRESSING 90 GM TUBE TP SCH ×2 (09:00→20:04)
[2016-11-19] MEDS: PROSOURCE / PROSTAT (PYXIS) 30 ML UDC GT SCH ×2 (09:00→16:53)
[2016-11-19] MEDS: CALCIUM CARBONATE 500 MG TAB.CHEW GT SCH ×2 (09:00→16:53)
[2016-11-19] MEDS: LEVETIRACETAM SOL (5 ML) 100 MG/ML UDC GT SCH ×2 (09:00→20:04)
[2016-11-19] MEDS: MVI/MINERALS LIQUID (CEROVITE) GT SCH (09:00)
[2016-11-19] MEDS: VITAMINS A AND D 56.7 GM TUBE TP SCH ×2 (09:00→20:04)
[2016-11-19] MEDS: Z GUARD REMEDY 4 OZ OINT TP SCH ×2 (09:00→20:04)
[2016-11-19] MEDS: HYDROGEN PEROXIDE 480 ML BOTTLE TP SCH ×2 (09:00→20:04)
[2016-11-19] MEDS: ASPIRIN 81 MG TAB.CHEW GT SCH (09:00)
[2016-11-19] MEDS: ACIDOPHILUS/BULGARICUS 1 EACH TAB.CHEW PO SCH ×3 (09:00→16:53)
[2016-11-19] MEDS: TRILEPTAL GT SCH ×2 (09:00→20:04)
[2016-11-19] MEDS: ASCORBIC ACID 500 MG TABLET GT SCH (09:00)
--- NOTE | 2016-11-19 09:28 | NUR ---
Notified Dr. Felix that resident did not tolerate cool aerosol, RR went up to high 30's and HR into 140's, RT put her back on ventilator, SIMV mode, as previously ordered. Resident picked up CT scan of the pelvis and abdomen due to abdominal distention and returned in stable condition. Patient accompanied by RT and LN.
[2016-11-19] MEDS: GLYTROL 1,000 ML BAG GT PRN ×2 (10:42→22:43)
[2016-11-19 20:12] VITALS: BP 135/95
[2016-11-20] MEDS: INSULIN REGULAR, HUMAN 100 UNIT/ML 3 ML VIAL SQ PRN ×2 (00:01→05:56)
[2016-11-20] MEDS: BLOOD SUGAR DIAGNOSTIC 1 EACH STRIP IN SCH ×4 (00:01→17:28)
[2016-11-20] MEDS: ALBUTEROL FS 2.5 MG/3 ML VIAL.NEB NEB SCH ×6 (02:34→23:30)
[2016-11-20] MEDS: DEXILANT 30 MG GT SCH (05:56)
[2016-11-20 08:00] VITALS: BP 139/72
[2016-11-20] MEDS: PROSOURCE / PROSTAT (PYXIS) 30 ML UDC GT SCH ×2 (08:21→17:28)
[2016-11-20] MEDS: HYDROGEN PEROXIDE 480 ML BOTTLE TP SCH ×2 (08:21→21:15)
[2016-11-20] MEDS: ACIDOPHILUS/BULGARICUS 1 EACH TAB.CHEW PO SCH ×3 (08:21→17:28)
[2016-11-20] MEDS: HYDROGEL DRESSING 90 GM TUBE TP SCH ×2 (08:21→21:15)
[2016-11-20] MEDS: ASPIRIN 81 MG TAB.CHEW GT SCH (08:21)
[2016-11-20] MEDS: CALCIUM CARBONATE 500 MG TAB.CHEW GT SCH ×2 (08:21→17:28)
[2016-11-20] MEDS: MVI/MINERALS LIQUID (CEROVITE) GT SCH (08:21)
[2016-11-20] MEDS: TRILEPTAL GT SCH ×2 (08:21→21:15)
[2016-11-20] MEDS: ASCORBIC ACID 500 MG TABLET GT SCH (08:21)
[2016-11-20] MEDS: LEVETIRACETAM SOL (5 ML) 100 MG/ML UDC GT SCH ×2 (08:21→21:15)
[2016-11-20] MEDS: Z GUARD REMEDY 4 OZ OINT TP SCH ×3 (08:22→21:16)
[2016-11-20] MEDS: VITAMINS A AND D 56.7 GM TUBE TP SCH ×2 (08:22→21:16)
--- NOTE | 2016-11-20 10:55 | NUR ---
Received order from Dr. Felix to DC cool aerosol order and to keep pt on SIMV 4 PS 12 Peep +5 as tolerated. Notified RT Emma.
--- NOTE | 2016-11-20 11:59 | NUR ---
Pt's sacral wound was healing, but now looks worse. Received order for wound care consult.
--- NOTE | 2016-11-20 15:04 | NUR ---
RT RECEIVED PT TRACHED WITH SHILEY 8 XLT CUFFED ON VENT WITH SETTINGS PER MD ORDER. SAFETY ASSOCIATE DONE. BILAT RHONCHI BREATH SOUNDS ON AUSCULTATION. AMBU BAG AND SPARE TRACH AT BEDSIDE. ALARMS ON AND WORKING PROPERLY. TRACH SECURED AND AIRWAY PATENT. SUCTIONED SMALL AMOUNTS OF THICK, WHITE/YELLOW SECRETIONS. BREATHING TX'S GIVEN ORDERED AND TOLERATED WELL. NO ADVERSE REACTIONS OBSERVED. NO SIGNS OF DISTRESS NOTED THROUGHOUT SHIFT. WILL CONTINUE TO MONITOR THE PATIENT FOR ANY CHANGE OF CONDITION. Addendum: 11/20/16 at 1810 by YAMIL MARTINEZ RT Amended: Links added.
[2016-11-20] MEDS: GLYTROL 1,000 ML BAG GT PRN (16:23)
[2016-11-20 20:19] VITALS: BP 126/75
--- NOTE | 2016-11-20 21:31 | NUR ---
Pt noted with multiple open skin right wrist area,slight bleeding noted.Pt able to removed her peek-a-mcgill hand mittens and scratch herself.Received order to apply triple antibiotic q shift x 14 days .will continue to monitor.
[2016-11-21] MEDS: INSULIN REGULAR, HUMAN 100 UNIT/ML 3 ML VIAL SQ PRN ×5 (00:06→23:40)
[2016-11-21] MEDS: BLOOD SUGAR DIAGNOSTIC 1 EACH STRIP IN SCH ×5 (00:06→23:39)
[2016-11-21] MEDS: ALBUTEROL FS 2.5 MG/3 ML VIAL.NEB NEB SCH ×5 (04:05→19:57)
[2016-11-21] MEDS: DEXILANT 30 MG GT SCH (05:57)
[2016-11-21] MEDS: GLYTROL 1,000 ML BAG GT PRN ×2 (06:46→12:59)
--- NOTE | 2016-11-21 06:52 | NUR ---
Social Service Section of [facility] completed. Resident has been more alert at times and able to intermittently interact with the staff (non-verbal interaction). Sister Beckie Chu is the resident's conservator and would like for her to stabilize before she is discharged. She recently had a dental cleaning on 11/17/2016.
[2016-11-21 07:59] VITALS: BP 130/69
[2016-11-21] MEDS: ASPIRIN 81 MG TAB.CHEW GT SCH (09:48)
[2016-11-21] MEDS: TRILEPTAL GT SCH ×2 (09:48→21:15)
[2016-11-21] MEDS: PROSOURCE / PROSTAT (PYXIS) 30 ML UDC GT SCH ×2 (09:49→16:36)
[2016-11-21] MEDS: LEVETIRACETAM SOL (5 ML) 100 MG/ML UDC GT SCH ×2 (09:49→21:15)
[2016-11-21] MEDS: MVI/MINERALS LIQUID (CEROVITE) GT SCH (09:49)
[2016-11-21] MEDS: CALCIUM CARBONATE 500 MG TAB.CHEW GT SCH ×2 (09:50→16:36)
[2016-11-21] MEDS: ACIDOPHILUS/BULGARICUS 1 EACH TAB.CHEW PO SCH ×3 (09:50→16:36)
[2016-11-21] MEDS: ASCORBIC ACID 500 MG TABLET GT SCH (09:50)
[2016-11-21] MEDS: HYDROGEL DRESSING 90 GM TUBE TP SCH ×2 (12:58→21:15)
[2016-11-21] MEDS: HYDROGEN PEROXIDE 480 ML BOTTLE TP SCH ×2 (12:58→21:15)
[2016-11-21] MEDS: Z GUARD REMEDY 4 OZ OINT TP SCH ×4 (12:58→21:15)
[2016-11-21] MEDS: VITAMINS A AND D 56.7 GM TUBE TP SCH ×2 (12:59→21:15)
--- NOTE | 2016-11-21 13:00 | NUR ---
WOUND CARE CONSULT PATIENT SEEN AND SACRAL ULCER EVALUATED. PATIENT PRESENTS WITH SACRAL ULCER WHICH WAS NOTED TO BE STAGE 2 POA. NOW THE ULCER HAS PROGRESSED TO FULL THICKNESS, STAGE 3, 2CM X 1.5CM X 0.2CM, WOUND BED IS GRANULATING BUT PALE IN COLOR, THERE IS NO ODOR, A SMALL AMOUNT OF SEROUS DRNG, ELISA WOUND IS NOTED TO BE INTACT AND THERE IS NO S/S OF INFECTION. RECOMMEND CONTINUE WITH SAME TREATMENT PLAN WHICH INCLUDES HYDROGEL AND MEPILEX PER CURRENT MD ORDERS. ALSO RECOMMEND SURGICAL CONSULT FOR POSSIBLE DEBRIDEMENT THE WOUND BED IS PALE AND EDGES ARE SOMEWHAT THICKENED. THERE ARE STILL AREA OF HYPOPIGMENTATION TO THE OTHER AREAS OF THE SACRAL AND THE BILATERAL BUTTOCKS REGIONS. ALL DISCUSSED WITH PORTAINER OPERATOR AND NURSING STAFF.
[2016-11-21 20:32] VITALS: BP 134/69
[2016-11-21] MEDS: NEOMY SULF/BACITRAC ZN/POLY 15 GM TUBE TP SCH (21:15)
--- NOTE | 2016-11-21 21:42 | NUR ---
Patient received trached on mechanical vent. Breath sounds equal bilateral. Tx given as ordered and tolerated well. No adverse reactions noted. Vent plugged into red outlet and alarms set and functioning.
[2016-11-22] MEDS: ALBUTEROL FS 2.5 MG/3 ML VIAL.NEB NEB SCH ×7 (00:05→22:51)
[2016-11-22] MEDS: GLYTROL 1,000 ML BAG GT PRN (03:43)
[2016-11-22] MEDS: DEXILANT 30 MG GT SCH (05:31)
[2016-11-22] MEDS: BLOOD SUGAR DIAGNOSTIC 1 EACH STRIP IN SCH ×4 (05:31→23:25)
[2016-11-22] MEDS: INSULIN REGULAR, HUMAN 100 UNIT/ML 3 ML VIAL SQ PRN ×4 (05:32→23:26)
[2016-11-22 08:07] VITALS: BP 131/71
[2016-11-22] MEDS: ASPIRIN 81 MG TAB.CHEW GT SCH (09:00)
[2016-11-22] MEDS: ASCORBIC ACID 500 MG TABLET GT SCH (09:00)
[2016-11-22] MEDS: PROSOURCE / PROSTAT (PYXIS) 30 ML UDC GT SCH ×2 (09:00→17:34)
[2016-11-22] MEDS: MVI/MINERALS LIQUID (CEROVITE) GT SCH (09:00)
[2016-11-22] MEDS: ACIDOPHILUS/BULGARICUS 1 EACH TAB.CHEW PO SCH ×3 (09:00→17:34)
[2016-11-22] MEDS: TRILEPTAL GT SCH ×2 (09:00→20:50)
[2016-11-22] MEDS: LEVETIRACETAM SOL (5 ML) 100 MG/ML UDC GT SCH ×2 (09:00→20:51)
[2016-11-22] MEDS: CALCIUM CARBONATE 500 MG TAB.CHEW GT SCH ×2 (09:00→17:34)
[2016-11-22] MEDS: HYDROGEL DRESSING 90 GM TUBE TP SCH ×2 (11:23→20:51)
[2016-11-22] MEDS: HYDROGEN PEROXIDE 480 ML BOTTLE TP SCH ×2 (11:23→20:51)
[2016-11-22] MEDS: NEOMY SULF/BACITRAC ZN/POLY 15 GM TUBE TP SCH ×2 (11:24→20:51)
[2016-11-22] MEDS: VITAMINS A AND D 56.7 GM TUBE TP SCH ×2 (11:24→20:51)
[2016-11-22] MEDS: Z GUARD REMEDY 4 OZ OINT TP SCH ×4 (11:24→20:51)
[2016-11-22 21:07] VITALS: BP 119/76
[2016-11-22] MEDS: ACETAMINOPHEN 650 MG/20 ML UDC- FOR SA PATIENTS ONLY GT PRN (23:18)
--- NOTE | 2016-11-22 23:30 | NUR ---
Primary nurse noted patient is having WOB and Nasal flaring. Suctioning done and breathing treatment given. VS: 106/62, 130hr, O2 100%, Temp 98.0, RR 27. Will monitor.
--- NOTE | 2016-11-23 00:24 | NUR ---
PT placed back on previous AC mode order of AC16, TV 550, FIO2 40%, PEEP 5 due to not tolerating latest SIMV setting. PT HR 126 RR 26 remained with nasal flaring and increase respiration. will monitor patient.
--- NOTE | 2016-11-23 00:24 | NUR ---
pt was changed from the simv mode to ac mode because she did not tolerate simv mode well
[2016-11-23] MEDS: GLYTROL 1,000 ML BAG GT PRN ×2 (01:18→17:34)
[2016-11-23] MEDS: ALBUTEROL FS 2.5 MG/3 ML VIAL.NEB NEB SCH ×6 (02:36→22:57)
[2016-11-23] MEDS: INSULIN REGULAR, HUMAN 100 UNIT/ML 3 ML VIAL SQ PRN (05:34)
[2016-11-23] MEDS: DEXILANT 30 MG GT SCH (05:34)
[2016-11-23] MEDS: BLOOD SUGAR DIAGNOSTIC 1 EACH STRIP IN SCH ×3 (05:34→17:33)
--- NOTE | 2016-11-23 06:36 | NUR ---
pt remained asleep. no distress noted. current HR=86 RR=18 SPO2 100%. will endorse to day shift to monitor.
[2016-11-23 07:32] VITALS: BP 125/57
[2016-11-23] MEDS: LEVETIRACETAM SOL (5 ML) 100 MG/ML UDC GT SCH ×2 (09:18→20:16)
[2016-11-23] MEDS: PROSOURCE / PROSTAT (PYXIS) 30 ML UDC GT SCH ×2 (09:18→17:33)
[2016-11-23] MEDS: ACIDOPHILUS/BULGARICUS 1 EACH TAB.CHEW PO SCH ×3 (09:18→17:33)
[2016-11-23] MEDS: VITAMINS A AND D 56.7 GM TUBE TP SCH ×2 (09:18→20:16)
[2016-11-23] MEDS: HYDROGEN PEROXIDE 480 ML BOTTLE TP SCH ×2 (09:18→20:16)
[2016-11-23] MEDS: Z GUARD REMEDY 4 OZ OINT TP SCH ×4 (09:18→20:16)
[2016-11-23] MEDS: CALCIUM CARBONATE 500 MG TAB.CHEW GT SCH ×2 (09:18→17:33)
[2016-11-23] MEDS: HYDROGEL DRESSING 90 GM TUBE TP SCH ×2 (09:18→20:16)
[2016-11-23] MEDS: ASPIRIN 81 MG TAB.CHEW GT SCH (09:18)
[2016-11-23] MEDS: ASCORBIC ACID 500 MG TABLET GT SCH (09:18)
[2016-11-23] MEDS: TRILEPTAL GT SCH ×2 (09:18→20:15)
[2016-11-23] MEDS: NEOMY SULF/BACITRAC ZN/POLY 15 GM TUBE TP SCH ×2 (09:18→20:16)
[2016-11-23] MEDS: MVI/MINERALS LIQUID (CEROVITE) GT SCH (09:18)
[2016-11-23 19:42] VITALS: BP 110/65
--- NOTE | 2016-11-23 20:47 | NUR ---
Patient received breathing treatment as ordered and tolerated well. No adverse reactions noted. Breath sounds equal bilateral. Vent plugged into red outlet and alarms set and functioning. Ambu bag at the bed side.
[2016-11-24] MEDS: BLOOD SUGAR DIAGNOSTIC 1 EACH STRIP IN SCH ×4 (00:09→17:44)
[2016-11-24] MEDS: INSULIN REGULAR, HUMAN 100 UNIT/ML 3 ML VIAL SQ PRN ×3 (00:10→17:44)
[2016-11-24] MEDS: ALBUTEROL FS 2.5 MG/3 ML VIAL.NEB NEB SCH ×5 (03:09→23:41)
[2016-11-24] MEDS: DEXILANT 30 MG GT SCH (06:24)
[2016-11-24 08:13] VITALS: BP 147/88
[2016-11-24] MEDS: NEOMY SULF/BACITRAC ZN/POLY 15 GM TUBE TP SCH ×2 (09:12→20:13)
[2016-11-24] MEDS: CALCIUM CARBONATE 500 MG TAB.CHEW GT SCH ×2 (09:12→17:37)
[2016-11-24] MEDS: TRILEPTAL GT SCH ×2 (09:12→20:13)
[2016-11-24] MEDS: HYDROGEN PEROXIDE 480 ML BOTTLE TP SCH ×2 (09:12→20:13)
[2016-11-24] MEDS: VITAMINS A AND D 56.7 GM TUBE TP SCH ×2 (09:12→20:14)
[2016-11-24] MEDS: MVI/MINERALS LIQUID (CEROVITE) GT SCH (09:12)
[2016-11-24] MEDS: ACIDOPHILUS/BULGARICUS 1 EACH TAB.CHEW PO SCH ×3 (09:12→17:37)
[2016-11-24] MEDS: Z GUARD REMEDY 4 OZ OINT TP SCH ×4 (09:12→20:14)
[2016-11-24] MEDS: HYDROGEL DRESSING 90 GM TUBE TP SCH ×2 (09:12→20:13)
[2016-11-24] MEDS: ASPIRIN 81 MG TAB.CHEW GT SCH (09:12)
[2016-11-24] MEDS: PROSOURCE / PROSTAT (PYXIS) 30 ML UDC GT SCH ×2 (09:12→17:37)
[2016-11-24] MEDS: ASCORBIC ACID 500 MG TABLET GT SCH (09:12)
[2016-11-24] MEDS: LEVETIRACETAM SOL (5 ML) 100 MG/ML UDC GT SCH ×2 (09:12→20:13)
--- NOTE | 2016-11-24 10:33 | NUR ---
Seen and examined by Dr. Urmila Ornelas, new order for labs on 12/01/16.
--- NOTE | 2016-11-24 15:30 | NUR ---
AWAKE,REPONSIVE TO PAIN,B/S ARE EQUAL CONTINUE VENT SETTINGS. VENTILATOR ALARM ARE AUDIBLE AND FUNCTIONAL, POWER PLUGGED TO RED WALL OUTLET. COLLIN LINCOLN Addendum: 11/24/16 at 1640 by IKER GRAY RT Amended: Links added.
--- NOTE | 2016-11-24 19:30 | NUR ---
RN NOTES Seen and examined by Anna Vargas with [facility]NO.
[2016-11-24 19:54] VITALS: BP 150/77
[2016-11-25] MEDS: BLOOD SUGAR DIAGNOSTIC 1 EACH STRIP IN SCH ×4 (00:17→18:30)
[2016-11-25] MEDS: ALBUTEROL FS 2.5 MG/3 ML VIAL.NEB NEB SCH ×6 (03:30→23:57)
[2016-11-25] MEDS: DEXILANT 30 MG GT SCH (06:10)
[2016-11-25 07:46] VITALS: BP 123/76
[2016-11-25] MEDS: ASPIRIN 81 MG TAB.CHEW GT SCH (09:24)
[2016-11-25] MEDS: CALCIUM CARBONATE 500 MG TAB.CHEW GT SCH ×2 (09:25→16:45)
[2016-11-25] MEDS: ACIDOPHILUS/BULGARICUS 1 EACH TAB.CHEW PO SCH ×3 (09:25→16:45)
[2016-11-25] MEDS: Z GUARD REMEDY 4 OZ OINT TP SCH ×4 (09:25→20:23)
[2016-11-25] MEDS: NEOMY SULF/BACITRAC ZN/POLY 15 GM TUBE TP SCH ×2 (09:25→20:23)
[2016-11-25] MEDS: MVI/MINERALS LIQUID (CEROVITE) GT SCH (09:25)
[2016-11-25] MEDS: HYDROGEL DRESSING 90 GM TUBE TP SCH ×2 (09:25→20:23)
[2016-11-25] MEDS: HYDROGEN PEROXIDE 480 ML BOTTLE TP SCH ×2 (09:25→20:23)
[2016-11-25] MEDS: PROSOURCE / PROSTAT (PYXIS) 30 ML UDC GT SCH ×2 (09:25→16:45)
[2016-11-25] MEDS: VITAMINS A AND D 56.7 GM TUBE TP SCH ×2 (09:25→20:23)
[2016-11-25] MEDS: ASCORBIC ACID 500 MG TABLET GT SCH (09:25)
[2016-11-25] MEDS: LEVETIRACETAM SOL (5 ML) 100 MG/ML UDC GT SCH ×2 (09:26→20:23)
[2016-11-25] MEDS: TRILEPTAL GT SCH ×2 (09:26→20:23)
--- NOTE | 2016-11-25 10:00 | NUR ---
Seen and examined by Dr. Felix. made aware that resident with episode of nasal flaring and elevated HR on 11/23, did not tolerate SIMV mode and place patient back to AC. No other order given at this time. Left a message to Beckie (sister). regarding above.
--- NOTE | 2016-11-25 11:04 | NUR ---
Received a call from Beckie, patient's sister acknowledging the received the message left on her voice mail. She was also made aware that wound nurse came to see patient last week and recommend a surgical consult for wound debridement. She said to let her know if it will be done. Endorsed.
[2016-11-25] MEDS: GLYTROL 1,000 ML BAG GT PRN (14:21)
--- NOTE | 2016-11-25 15:10 | NUR ---
RT report: PT. 46 Y OLD FEMALE REMAIN TRACHED ON VENT WITH SETTINGS PER MD ORDER. VASCULAR SPECIALISTS DONE. BILATERALLY RHONCHI BREATH SOUNDS ON AUSCULTATION. AMBU BAG AND SPARE TRACH AT BEDSIDE. ALARMS ON AND FUNCTIONING PROPERLY. TRACH SECURED PT. SUCTIONED FOR SMALL AMOUNTS OF THICK, WHITE/ZHANG SECRETIONS. BREATHING TX'S GIVEN ORDERED AND TOLERATED WELL. NO ADVERSE REACTIONS OBSERVED. NO SIGNS OF DISTRESS NOTED THROUGHOUT SHIFT. WILL CONTINUE TO MONITOR. REPORT WILL BE PASS TO PM SHIFT. Addendum: 11/25/16 at 1511 by SHIMA CHILDS RT Amended: Links added.
--- NOTE | 2016-11-25 15:30 | NUR ---
Spoke with Dr. Alejo Garcia, regarding wound nurse recommendation for possible debridement of the sacral wound, according to MD that he will come on 11/27/16. Endorsed to obtain consent from family.
[2016-11-25 19:58] VITALS: BP 102/64
[2016-11-26] MEDS: BLOOD SUGAR DIAGNOSTIC 1 EACH STRIP IN SCH ×5 (00:32→23:38)
[2016-11-26] MEDS: ALBUTEROL FS 2.5 MG/3 ML VIAL.NEB NEB SCH ×6 (02:35→23:41)
[2016-11-26] MEDS: DEXILANT 30 MG GT SCH (05:40)
[2016-11-26 08:04] VITALS: BP 135/92
[2016-11-26] MEDS: CALCIUM CARBONATE 500 MG TAB.CHEW GT SCH ×2 (09:00→16:23)
[2016-11-26] MEDS: Z GUARD REMEDY 4 OZ OINT TP SCH ×4 (09:00→21:36)
[2016-11-26] MEDS: ASPIRIN 81 MG TAB.CHEW GT SCH (09:00)
[2016-11-26] MEDS: HYDROGEN PEROXIDE 480 ML BOTTLE TP SCH ×2 (09:00→21:36)
[2016-11-26] MEDS: ASCORBIC ACID 500 MG TABLET GT SCH (09:00)
[2016-11-26] MEDS: MVI/MINERALS LIQUID (CEROVITE) GT SCH (09:00)
[2016-11-26] MEDS: HYDROGEL DRESSING 90 GM TUBE TP SCH ×2 (09:00→21:35)
[2016-11-26] MEDS: LEVETIRACETAM SOL (5 ML) 100 MG/ML UDC GT SCH ×2 (09:00→21:35)
[2016-11-26] MEDS: ACIDOPHILUS/BULGARICUS 1 EACH TAB.CHEW PO SCH ×3 (09:00→16:23)
[2016-11-26] MEDS: VITAMINS A AND D 56.7 GM TUBE TP SCH ×2 (09:00→21:36)
[2016-11-26] MEDS: PROSOURCE / PROSTAT (PYXIS) 30 ML UDC GT SCH ×2 (09:00→16:23)
[2016-11-26] MEDS: NEOMY SULF/BACITRAC ZN/POLY 15 GM TUBE TP SCH ×2 (09:00→21:36)
[2016-11-26] MEDS: TRILEPTAL GT SCH ×2 (09:00→21:35)
[2016-11-26] MEDS: INSULIN REGULAR, HUMAN 100 UNIT/ML 3 ML VIAL SQ PRN ×2 (17:30→23:38)
[2016-11-26 21:45] VITALS: BP 101/65
[2016-11-26] MEDS: GLYTROL 1,000 ML BAG GT PRN (21:48)
[2016-11-27] MEDS: ALBUTEROL FS 2.5 MG/3 ML VIAL.NEB NEB SCH ×6 (02:44→23:53)
[2016-11-27] MEDS: DEXILANT 30 MG GT SCH (05:05)
[2016-11-27] MEDS: INSULIN REGULAR, HUMAN 100 UNIT/ML 3 ML VIAL SQ PRN (05:22)
[2016-11-27] MEDS: BLOOD SUGAR DIAGNOSTIC 1 EACH STRIP IN SCH ×3 (05:22→18:55)
[2016-11-27] MEDS: CALCIUM CARBONATE 500 MG TAB.CHEW GT SCH ×2 (09:00→17:00)
[2016-11-27] MEDS: ACIDOPHILUS/BULGARICUS 1 EACH TAB.CHEW PO SCH ×3 (09:00→17:00)
[2016-11-27] MEDS: TRILEPTAL GT SCH ×2 (09:00→21:33)
[2016-11-27] MEDS: PROSOURCE / PROSTAT (PYXIS) 30 ML UDC GT SCH ×2 (09:00→17:00)
[2016-11-27] MEDS: LEVETIRACETAM SOL (5 ML) 100 MG/ML UDC GT SCH ×2 (09:00→21:33)
[2016-11-27] MEDS: MVI/MINERALS LIQUID (CEROVITE) GT SCH (09:00)
[2016-11-27] MEDS: ASCORBIC ACID 500 MG TABLET GT SCH (09:00)
[2016-11-27] MEDS: ASPIRIN 81 MG TAB.CHEW GT SCH (09:00)
[2016-11-27] MEDS: Z GUARD REMEDY 4 OZ OINT TP SCH ×4 (09:00→21:34)
[2016-11-27] MEDS: HYDROGEL DRESSING 90 GM TUBE TP SCH ×2 (09:00→21:33)
[2016-11-27] MEDS: VITAMINS A AND D 56.7 GM TUBE TP SCH ×2 (09:00→21:34)
[2016-11-27] MEDS: HYDROGEN PEROXIDE 480 ML BOTTLE TP SCH ×2 (09:00→21:33)
[2016-11-27] MEDS: NEOMY SULF/BACITRAC ZN/POLY 15 GM TUBE TP SCH ×3 (09:00→21:33)
--- NOTE | 2016-11-27 10:40 | NUR ---
Seen by Dr Dhillon and Jennifer MONTANA and did Sacral wound debridement procedure tolerated well with minimal bleeding noted.Pain meds given as ordered.Wound treatment as ordered.Will continue to monitor.
[2016-11-27] MEDS: ACETAMINOPHEN 650 MG/20 ML UDC- FOR SA PATIENTS ONLY GT PRN (12:04)
--- NOTE | 2016-11-27 14:20 | NUR ---
Seen and examined by Dr Montaño with no new order.
--- NOTE | 2016-11-27 15:20 | NUR ---
Seen and examined by Anna MONTANA with no new order.
--- NOTE | 2016-11-27 17:09 | NUR ---
Spoke with Beckie pt sister regarding previous CT scan per Dr Montaño request and per sister pt with Ct Scan done in [facility] she will go get copy and instructed sister to give a copy to the charge nurse.
[2016-11-27] MEDS: GLYTROL 1,000 ML BAG GT PRN (19:00)
[2016-11-27 21:10] VITALS: BP 107/74
[2016-11-28] MEDS: INSULIN REGULAR, HUMAN 100 UNIT/ML 3 ML VIAL SQ PRN ×3 (00:01→23:36)
[2016-11-28] MEDS: BLOOD SUGAR DIAGNOSTIC 1 EACH STRIP IN SCH ×5 (00:01→23:36)
[2016-11-28] MEDS: ALBUTEROL FS 2.5 MG/3 ML VIAL.NEB NEB SCH ×6 (04:14→23:09)
[2016-11-28] MEDS: DEXILANT 30 MG GT SCH (05:41)
[2016-11-28 07:37] VITALS: BP 128/62
[2016-11-28] MEDS: LEVETIRACETAM SOL (5 ML) 100 MG/ML UDC GT SCH ×2 (09:00→20:13)
[2016-11-28] MEDS: VITAMINS A AND D 56.7 GM TUBE TP SCH ×2 (09:00→20:13)
[2016-11-28] MEDS: HYDROGEN PEROXIDE 480 ML BOTTLE TP SCH ×2 (09:00→20:13)
[2016-11-28] MEDS: PROSOURCE / PROSTAT (PYXIS) 30 ML UDC GT SCH ×2 (09:00→17:00)
[2016-11-28] MEDS: MVI/MINERALS LIQUID (CEROVITE) GT SCH (09:00)
[2016-11-28] MEDS: ASPIRIN 81 MG TAB.CHEW GT SCH (09:00)
[2016-11-28] MEDS: ASCORBIC ACID 500 MG TABLET GT SCH (09:00)
[2016-11-28] MEDS: TRILEPTAL GT SCH ×2 (09:00→20:13)
[2016-11-28] MEDS: Z GUARD REMEDY 4 OZ OINT TP SCH ×4 (09:00→20:13)
[2016-11-28] MEDS: CALCIUM CARBONATE 500 MG TAB.CHEW GT SCH ×2 (09:00→17:00)
[2016-11-28] MEDS: NEOMY SULF/BACITRAC ZN/POLY 15 GM TUBE TP SCH ×4 (09:00→20:13)
[2016-11-28] MEDS: ACIDOPHILUS/BULGARICUS 1 EACH TAB.CHEW PO SCH ×3 (09:00→17:00)
[2016-11-28] MEDS: HYDROGEL DRESSING 90 GM TUBE TP SCH ×2 (09:00→20:13)
--- NOTE | 2016-11-28 15:10 | NUR ---
PT RECEIVED ON 40 % FIO2 WITH SPO2 99%. Addendum: 11/28/16 at 1511 by VIVEK PHILLIP RT Amended: Links added.
[2016-11-28 19:48] VITALS: BP 111/64
[2016-11-29] MEDS: GLYTROL 1,000 ML BAG GT PRN (01:52)
[2016-11-29] MEDS: ALBUTEROL FS 2.5 MG/3 ML VIAL.NEB NEB SCH ×6 (02:34→23:14)
[2016-11-29] MEDS: INSULIN REGULAR, HUMAN 100 UNIT/ML 3 ML VIAL SQ PRN (06:12)
[2016-11-29] MEDS: DEXILANT 30 MG GT SCH (06:12)
[2016-11-29] MEDS: BLOOD SUGAR DIAGNOSTIC 1 EACH STRIP IN SCH ×3 (06:12→17:44)
[2016-11-29 07:41] VITALS: BP 126/57
[2016-11-29] MEDS: NEOMY SULF/BACITRAC ZN/POLY 15 GM TUBE TP SCH ×4 (09:00→21:35)
[2016-11-29] MEDS: VITAMINS A AND D 56.7 GM TUBE TP SCH ×2 (09:00→20:03)
[2016-11-29] MEDS: CALCIUM CARBONATE 500 MG TAB.CHEW GT SCH ×2 (09:00→17:44)
[2016-11-29] MEDS: TRILEPTAL GT SCH ×2 (09:00→20:11)
[2016-11-29] MEDS: MVI/MINERALS LIQUID (CEROVITE) GT SCH (09:00)
[2016-11-29] MEDS: Z GUARD REMEDY 4 OZ OINT TP SCH ×4 (09:00→20:03)
[2016-11-29] MEDS: ASCORBIC ACID 500 MG TABLET GT SCH (09:00)
[2016-11-29] MEDS: LEVETIRACETAM SOL (5 ML) 100 MG/ML UDC GT SCH ×2 (09:00→20:11)
[2016-11-29] MEDS: PROSOURCE / PROSTAT (PYXIS) 30 ML UDC GT SCH ×2 (09:00→17:44)
[2016-11-29] MEDS: ACIDOPHILUS/BULGARICUS 1 EACH TAB.CHEW PO SCH ×3 (09:00→17:44)
[2016-11-29] MEDS: HYDROGEN PEROXIDE 480 ML BOTTLE TP SCH ×2 (09:00→20:11)
[2016-11-29] MEDS: ASPIRIN 81 MG TAB.CHEW GT SCH (09:00)
[2016-11-29] MEDS: HYDROGEL DRESSING 90 GM TUBE TP SCH ×2 (09:00→20:11)
[2016-11-29 19:54] VITALS: BP 115/66
--- NOTE | 2016-11-29 20:11 | NUR ---
Patient received trached on mechanical vent. Breath sounds equal bilateral. treatment given as ordered and tolerated well. No adverse reactions noted. Vent plugged into red outlet and alarms set and functioning.
[2016-11-30] MEDS: BLOOD SUGAR DIAGNOSTIC 1 EACH STRIP IN SCH ×5 (00:21→23:13)
[2016-11-30] MEDS: INSULIN REGULAR, HUMAN 100 UNIT/ML 3 ML VIAL SQ PRN ×3 (00:21→23:13)
[2016-11-30] MEDS: ALBUTEROL FS 2.5 MG/3 ML VIAL.NEB NEB SCH ×6 (02:22→23:30)
[2016-11-30] MEDS: DEXILANT 30 MG GT SCH (05:14)
[2016-11-30 07:25] VITALS: BP 115/73
[2016-11-30] MEDS: HYDROGEN PEROXIDE 480 ML BOTTLE TP SCH ×2 (09:31→20:02)
[2016-11-30] MEDS: CALCIUM CARBONATE 500 MG TAB.CHEW GT SCH ×2 (09:31→17:14)
[2016-11-30] MEDS: MVI/MINERALS LIQUID (CEROVITE) GT SCH (09:31)
[2016-11-30] MEDS: NEOMY SULF/BACITRAC ZN/POLY 15 GM TUBE TP SCH ×4 (09:31→20:03)
[2016-11-30] MEDS: ACIDOPHILUS/BULGARICUS 1 EACH TAB.CHEW PO SCH ×3 (09:31→17:14)
[2016-11-30] MEDS: PROSOURCE / PROSTAT (PYXIS) 30 ML UDC GT SCH ×2 (09:31→17:14)
[2016-11-30] MEDS: LEVETIRACETAM SOL (5 ML) 100 MG/ML UDC GT SCH ×2 (09:31→20:02)
[2016-11-30] MEDS: VITAMINS A AND D 56.7 GM TUBE TP SCH ×2 (09:31→20:03)
[2016-11-30] MEDS: Z GUARD REMEDY 4 OZ OINT TP SCH ×4 (09:31→20:03)
[2016-11-30] MEDS: HYDROGEL DRESSING 90 GM TUBE TP SCH ×2 (09:31→20:02)
[2016-11-30] MEDS: ASPIRIN 81 MG TAB.CHEW GT SCH (09:31)
[2016-11-30] MEDS: ASCORBIC ACID 500 MG TABLET GT SCH (09:31)
[2016-11-30] MEDS: TRILEPTAL GT SCH ×2 (09:31→20:02)
[2016-11-30] MEDS: GLYTROL 1,000 ML BAG GT PRN (17:59)
[2016-11-30 19:52] VITALS: BP 122/77
[2016-12-01] MEDS: ALBUTEROL FS 2.5 MG/3 ML VIAL.NEB NEB SCH ×6 (02:36→23:30)
[2016-12-01] MEDS: DEXILANT 30 MG GT SCH (05:26)
[2016-12-01] MEDS: BLOOD SUGAR DIAGNOSTIC 1 EACH STRIP IN SCH ×4 (05:26→23:18)
[2016-12-01] MEDS: INSULIN REGULAR, HUMAN 100 UNIT/ML 3 ML VIAL SQ PRN ×3 (05:26→17:31)
[2016-12-01 07:38] LABS: CALCIUM, SERUM 9.5 mg/dL (8.5-10.1); CREATININE 1.6 mg/dL (0.6-1.3); MAGNESIUM 2.4 mg/dL (1.8-2.4); PHOSPHORUS 3.7 mg/dL (2.5-4.9)
[2016-12-01 08:31] VITALS: BP 131/50
[2016-12-01] MEDS: NEOMY SULF/BACITRAC ZN/POLY 15 GM TUBE TP SCH ×4 (08:35→20:17)
[2016-12-01] MEDS: ASPIRIN 81 MG TAB.CHEW GT SCH (08:35)
[2016-12-01] MEDS: PROSOURCE / PROSTAT (PYXIS) 30 ML UDC GT SCH ×2 (08:35→17:16)
[2016-12-01] MEDS: CALCIUM CARBONATE 500 MG TAB.CHEW GT SCH ×2 (08:35→17:16)
[2016-12-01] MEDS: MVI/MINERALS LIQUID (CEROVITE) GT SCH (08:35)
[2016-12-01] MEDS: ACIDOPHILUS/BULGARICUS 1 EACH TAB.CHEW PO SCH ×3 (08:35→17:16)
[2016-12-01] MEDS: HYDROGEN PEROXIDE 480 ML BOTTLE TP SCH ×2 (08:35→20:17)
[2016-12-01] MEDS: Z GUARD REMEDY 4 OZ OINT TP SCH ×4 (08:35→20:17)
[2016-12-01] MEDS: TRILEPTAL GT SCH ×2 (08:35→20:17)
[2016-12-01] MEDS: HYDROGEL DRESSING 90 GM TUBE TP SCH ×2 (08:35→20:17)
[2016-12-01] MEDS: ASCORBIC ACID 500 MG TABLET GT SCH (08:35)
[2016-12-01] MEDS: LEVETIRACETAM SOL (5 ML) 100 MG/ML UDC GT SCH ×2 (08:35→20:17)
[2016-12-01] MEDS: VITAMINS A AND D 56.7 GM TUBE TP SCH ×2 (08:36→20:17)
[2016-12-01 19:58] VITALS: BP 116/71
[2016-12-02] MEDS: ALBUTEROL FS 2.5 MG/3 ML VIAL.NEB NEB SCH ×6 (02:42→23:30)
[2016-12-02] MEDS: DEXILANT 30 MG GT SCH (05:09)
[2016-12-02] MEDS: BLOOD SUGAR DIAGNOSTIC 1 EACH STRIP IN SCH ×4 (05:51→23:04)
[2016-12-02] MEDS: GLYTROL 1,000 ML BAG GT PRN ×2 (06:44→21:17)
[2016-12-02 07:57] VITALS: BP 111/69
[2016-12-02] MEDS: ASPIRIN 81 MG TAB.CHEW GT SCH (08:15)
[2016-12-02] MEDS: MVI/MINERALS LIQUID (CEROVITE) GT SCH (08:15)
[2016-12-02] MEDS: ASCORBIC ACID 500 MG TABLET GT SCH (08:15)
[2016-12-02] MEDS: ACIDOPHILUS/BULGARICUS 1 EACH TAB.CHEW PO SCH ×3 (08:15→16:02)
[2016-12-02] MEDS: CALCIUM CARBONATE 500 MG TAB.CHEW GT SCH ×2 (08:15→16:02)
[2016-12-02] MEDS: PROSOURCE / PROSTAT (PYXIS) 30 ML UDC GT SCH ×2 (08:15→16:01)
[2016-12-02] MEDS: LEVETIRACETAM SOL (5 ML) 100 MG/ML UDC GT SCH ×2 (08:15→20:17)
[2016-12-02] MEDS: TRILEPTAL GT SCH ×2 (08:15→20:17)
[2016-12-02] MEDS: Z GUARD REMEDY 4 OZ OINT TP SCH ×4 (08:16→20:18)
[2016-12-02] MEDS: NEOMY SULF/BACITRAC ZN/POLY 15 GM TUBE TP SCH ×6 (08:16→20:18)
[2016-12-02] MEDS: HYDROGEL DRESSING 90 GM TUBE TP SCH ×2 (08:16→20:18)
[2016-12-02] MEDS: HYDROGEN PEROXIDE 480 ML BOTTLE TP SCH ×2 (08:16→20:18)
[2016-12-02] MEDS: VITAMINS A AND D 56.7 GM TUBE TP SCH ×2 (08:16→20:18)
[2016-12-02 20:11] VITALS: BP 135/71
[2016-12-03] MEDS: ALBUTEROL FS 2.5 MG/3 ML VIAL.NEB NEB SCH ×5 (03:30→19:35)
[2016-12-03] MEDS: DEXILANT 30 MG GT SCH (05:12)
[2016-12-03] MEDS: BLOOD SUGAR DIAGNOSTIC 1 EACH STRIP IN SCH ×4 (05:54→23:11)
--- NOTE | 2016-12-03 07:27 | NUR ---
RT PT RECEIVED TRACHED ON THE VENT WITH NOTED SETTINGS. PT IS AWAKE AND RESPONDS TO STIMULI. VENT ALARMS ARE SET AND AUDIBLE WITH BVM BY BEDSIDE. DETENTION OFFICER CUFF PRESSURE NOTED. VENT IS PLUGGED INTO RED OUTLET. NO RESPIRATORY DISTRESS NOTED AT THIS TIME, WILL CONTINUE TO MONITOR. Addendum: 12/03/16 at 1553 by MIMI WALKER RT Amended: Links added.
[2016-12-03 07:48] VITALS: BP 130/76
[2016-12-03] MEDS: VITAMINS A AND D 56.7 GM TUBE TP SCH ×2 (09:00→20:10)
[2016-12-03] MEDS: LEVETIRACETAM SOL (5 ML) 100 MG/ML UDC GT SCH ×2 (09:00→20:10)
[2016-12-03] MEDS: PROSOURCE / PROSTAT (PYXIS) 30 ML UDC GT SCH ×2 (09:00→16:15)
[2016-12-03] MEDS: MVI/MINERALS LIQUID (CEROVITE) GT SCH (09:00)
[2016-12-03] MEDS: ASPIRIN 81 MG TAB.CHEW GT SCH (09:00)
[2016-12-03] MEDS: HYDROGEL DRESSING 90 GM TUBE TP SCH ×2 (09:00→20:10)
[2016-12-03] MEDS: NEOMY SULF/BACITRAC ZN/POLY 15 GM TUBE TP SCH ×6 (09:00→20:10)
[2016-12-03] MEDS: ACIDOPHILUS/BULGARICUS 1 EACH TAB.CHEW PO SCH ×3 (09:00→16:15)
[2016-12-03] MEDS: TRILEPTAL GT SCH ×2 (09:00→20:10)
[2016-12-03] MEDS: ASCORBIC ACID 500 MG TABLET GT SCH (09:00)
[2016-12-03] MEDS: HYDROGEN PEROXIDE 480 ML BOTTLE TP SCH ×2 (09:00→20:10)
[2016-12-03] MEDS: Z GUARD REMEDY 4 OZ OINT TP SCH ×4 (09:00→20:10)
[2016-12-03] MEDS: CALCIUM CARBONATE 500 MG TAB.CHEW GT SCH ×2 (09:00→16:15)
[2016-12-03 20:11] VITALS: BP 111/74
[2016-12-04] MEDS: ALBUTEROL FS 2.5 MG/3 ML VIAL.NEB NEB SCH ×7 (00:27→23:15)
[2016-12-04] MEDS: DEXILANT 30 MG GT SCH (05:03)
[2016-12-04] MEDS: BLOOD SUGAR DIAGNOSTIC 1 EACH STRIP IN SCH ×4 (05:55→23:43)
[2016-12-04 08:55] VITALS: BP 108/75
[2016-12-04] MEDS: MVI/MINERALS LIQUID (CEROVITE) GT SCH (09:01)
[2016-12-04] MEDS: TRILEPTAL GT SCH ×2 (09:01→20:46)
[2016-12-04] MEDS: LEVETIRACETAM SOL (5 ML) 100 MG/ML UDC GT SCH ×2 (09:01→20:46)
[2016-12-04] MEDS: ACIDOPHILUS/BULGARICUS 1 EACH TAB.CHEW PO SCH ×3 (09:01→16:56)
[2016-12-04] MEDS: HYDROGEN PEROXIDE 480 ML BOTTLE TP SCH ×2 (09:01→20:46)
[2016-12-04] MEDS: ASCORBIC ACID 500 MG TABLET GT SCH (09:01)
[2016-12-04] MEDS: ASPIRIN 81 MG TAB.CHEW GT SCH (09:01)
[2016-12-04] MEDS: PROSOURCE / PROSTAT (PYXIS) 30 ML UDC GT SCH ×2 (09:01→16:56)
[2016-12-04] MEDS: HYDROGEL DRESSING 90 GM TUBE TP SCH ×2 (09:01→20:46)
[2016-12-04] MEDS: CALCIUM CARBONATE 500 MG TAB.CHEW GT SCH ×2 (09:01→16:56)
[2016-12-04] MEDS: NEOMY SULF/BACITRAC ZN/POLY 15 GM TUBE TP SCH ×5 (09:01→20:46)
[2016-12-04] MEDS: Z GUARD REMEDY 4 OZ OINT TP SCH ×3 (09:02→20:46)
[2016-12-04] MEDS: VITAMINS A AND D 56.7 GM TUBE TP SCH ×2 (09:02→20:46)
[2016-12-04] MEDS: GLYTROL 1,000 ML BAG GT PRN (12:19)
--- NOTE | 2016-12-04 14:41 | NUR ---
RT PT RECEIVED TRACH'D ON [facility] VENT WITH SETTINGS PER MD ORDER. FOUR HORSE HITCH DRIVER DONE. BILAT BREATH SOUNDS ON AUSCULTATION. SUCTIONED SMALL AMOUNTS OF THICK, WHITE/YELLOW SECRETIONS. TRACH SECURE AND AIRWAY PATENT. ALARMS ON AND AUDIBLE. VENT PLUGGED INTO RED OUTLET. SPARE TRACH AND AMBU BAG AT BEDSIDE. TX'S GIVEN ORDERED. NO ADVERSE REACTIONS OBSERVED. WILL CONTINUE TO MONITOR THE PATIENT FOR ANY CHANGE OF CONDITION. Addendum: 12/04/16 at 1759 by YAMIL MARTINEZ RT Amended: Links added.
[2016-12-04 20:11] VITALS: BP 133/73
--- NOTE | 2016-12-04 20:12 | NUR ---
PT COMFORTABLE ON CURRENT VENT SETTINGS. NO CHANGES MADE. ALARMS ARE SET AND AUDIBLE PER POLICY. AMBU BAG BEDSIDE. CONTINUE CURRENT THERAPY. Addendum: 12/05/16 at 0445 by LADAN WICK RT Amended: Links added.
[2016-12-04] MEDS: MAGNESIUM HYDROXIDE 30 ML UDC GT PRN (20:47)
[2016-12-04] MEDS: INSULIN REGULAR, HUMAN 100 UNIT/ML 3 ML VIAL SQ PRN (23:43)
[2016-12-05] MEDS: GLYTROL 1,000 ML BAG GT PRN ×2 (02:11→21:10)
[2016-12-05] MEDS: ALBUTEROL FS 2.5 MG/3 ML VIAL.NEB NEB SCH ×6 (04:13→23:55)
[2016-12-05] MEDS: DEXILANT 30 MG GT SCH (05:38)
[2016-12-05] MEDS: BLOOD SUGAR DIAGNOSTIC 1 EACH STRIP IN SCH ×4 (05:38→23:34)
[2016-12-05] MEDS: INSULIN REGULAR, HUMAN 100 UNIT/ML 3 ML VIAL SQ PRN ×4 (05:39→23:35)
[2016-12-05 07:32] VITALS: BP 101/54
[2016-12-05] MEDS: TRILEPTAL GT SCH ×2 (08:44→20:30)
[2016-12-05] MEDS: HYDROGEL DRESSING 90 GM TUBE TP SCH (08:44)
[2016-12-05] MEDS: PROSOURCE / PROSTAT (PYXIS) 30 ML UDC GT SCH ×2 (08:44→16:10)
[2016-12-05] MEDS: Z GUARD REMEDY 4 OZ OINT TP SCH ×2 (08:44→20:30)
[2016-12-05] MEDS: VITAMINS A AND D 56.7 GM TUBE TP SCH ×2 (08:44→20:30)
[2016-12-05] MEDS: CALCIUM CARBONATE 500 MG TAB.CHEW GT SCH ×2 (08:44→16:10)
[2016-12-05] MEDS: MVI/MINERALS LIQUID (CEROVITE) GT SCH (08:44)
[2016-12-05] MEDS: HYDROGEN PEROXIDE 480 ML BOTTLE TP SCH ×2 (08:44→20:30)
[2016-12-05] MEDS: ACIDOPHILUS/BULGARICUS 1 EACH TAB.CHEW PO SCH ×3 (08:44→16:10)
[2016-12-05] MEDS: NEOMY SULF/BACITRAC ZN/POLY 15 GM TUBE TP SCH ×4 (08:44→20:30)
[2016-12-05] MEDS: ASCORBIC ACID 500 MG TABLET GT SCH (08:44)
[2016-12-05] MEDS: LEVETIRACETAM SOL (5 ML) 100 MG/ML UDC GT SCH ×2 (08:44→20:30)
[2016-12-05] MEDS: ASPIRIN 81 MG TAB.CHEW GT SCH (08:44)
--- NOTE | 2016-12-05 12:35 | NUR ---
Spoke to pt's sister Beckie, notified her of room change, verbalized understanding.
--- NOTE | 2016-12-05 16:10 | NUR ---
Pt seen and examined by Dr. Montaño. No new order given.
[2016-12-05 20:31] VITALS: BP 106/72
[2016-12-06] MEDS: ALBUTEROL FS 2.5 MG/3 ML VIAL.NEB NEB SCH ×6 (03:35→23:53)
[2016-12-06] MEDS: BLOOD SUGAR DIAGNOSTIC 1 EACH STRIP IN SCH ×4 (05:33→23:14)
[2016-12-06] MEDS: INSULIN REGULAR, HUMAN 100 UNIT/ML 3 ML VIAL SQ PRN ×3 (05:33→23:14)
[2016-12-06] MEDS: DEXILANT 30 MG GT SCH (05:33)
[2016-12-06 07:27] VITALS: BP 94/59
[2016-12-06 07:28] VITALS: BP 98/61
[2016-12-06] MEDS: ASPIRIN 81 MG TAB.CHEW GT SCH (08:33)
[2016-12-06] MEDS: LEVETIRACETAM SOL (5 ML) 100 MG/ML UDC GT SCH ×2 (08:33→20:05)
[2016-12-06] MEDS: TRILEPTAL GT SCH ×2 (08:33→20:05)
[2016-12-06] MEDS: MVI/MINERALS LIQUID (CEROVITE) GT SCH (08:34)
[2016-12-06] MEDS: ASCORBIC ACID 500 MG TABLET GT SCH (08:34)
[2016-12-06] MEDS: ACIDOPHILUS/BULGARICUS 1 EACH TAB.CHEW PO SCH ×3 (08:34→16:11)
[2016-12-06] MEDS: CALCIUM CARBONATE 500 MG TAB.CHEW GT SCH ×2 (08:34→16:11)
[2016-12-06] MEDS: PROSOURCE / PROSTAT (PYXIS) 30 ML UDC GT SCH ×2 (08:34→16:11)
[2016-12-06] MEDS: NEOMY SULF/BACITRAC ZN/POLY 15 GM TUBE TP SCH ×2 (08:34→20:05)
[2016-12-06] MEDS: HYDROGEN PEROXIDE 480 ML BOTTLE TP SCH ×2 (08:34→20:05)
[2016-12-06] MEDS: VITAMINS A AND D 56.7 GM TUBE TP SCH ×2 (08:35→20:05)
[2016-12-06] MEDS: Z GUARD REMEDY 4 OZ OINT TP SCH ×2 (08:35→20:05)
[2016-12-06] MEDS: GLYTROL 1,000 ML BAG GT PRN (14:56)
[2016-12-06 20:17] VITALS: BP 104/56
[2016-12-07] MEDS: ALBUTEROL FS 2.5 MG/3 ML VIAL.NEB NEB SCH ×6 (03:21→23:30)
[2016-12-07] MEDS: INSULIN REGULAR, HUMAN 100 UNIT/ML 3 ML VIAL SQ PRN ×2 (05:39→23:21)
[2016-12-07] MEDS: DEXILANT 30 MG GT SCH (05:39)
[2016-12-07] MEDS: BLOOD SUGAR DIAGNOSTIC 1 EACH STRIP IN SCH ×4 (05:39→23:21)
[2016-12-07 07:44] VITALS: BP 125/51
[2016-12-07] MEDS: ASCORBIC ACID 500 MG TABLET GT SCH (08:24)
[2016-12-07] MEDS: CALCIUM CARBONATE 500 MG TAB.CHEW GT SCH ×2 (08:24→16:32)
[2016-12-07] MEDS: TRILEPTAL GT SCH ×2 (08:24→21:11)
[2016-12-07] MEDS: ASPIRIN 81 MG TAB.CHEW GT SCH (08:24)
[2016-12-07] MEDS: PROSOURCE / PROSTAT (PYXIS) 30 ML UDC GT SCH ×2 (08:24→16:32)
[2016-12-07] MEDS: LEVETIRACETAM SOL (5 ML) 100 MG/ML UDC GT SCH ×2 (08:24→21:11)
[2016-12-07] MEDS: ACIDOPHILUS/BULGARICUS 1 EACH TAB.CHEW PO SCH ×3 (08:24→16:32)
[2016-12-07] MEDS: MVI/MINERALS LIQUID (CEROVITE) GT SCH (08:24)
[2016-12-07] MEDS: Z GUARD REMEDY 4 OZ OINT TP SCH ×2 (08:25→21:11)
[2016-12-07] MEDS: NEOMY SULF/BACITRAC ZN/POLY 15 GM TUBE TP SCH ×2 (08:25→21:11)
[2016-12-07] MEDS: HYDROGEN PEROXIDE 480 ML BOTTLE TP SCH ×2 (08:25→21:11)
[2016-12-07] MEDS: VITAMINS A AND D 56.7 GM TUBE TP SCH ×2 (08:25→21:11)
[2016-12-07] MEDS: GLYTROL 1,000 ML BAG GT PRN (12:35)
--- NOTE | 2016-12-07 17:03 | NUR ---
Received urine culture result relayed to NAN Loredo she said she will take care of it tomorrow. NAN Loredo ordered CBC to be done in the morning noted and carried out. Pt is asymtomatic, afebrile, no manifestation of pain or discomfort. Will continue to monitor.
[2016-12-07 23:02] VITALS: BP 126/73
[2016-12-08] MEDS: GLYTROL 1,000 ML BAG GT PRN ×2 (02:05→20:33)
[2016-12-08] MEDS: ALBUTEROL FS 2.5 MG/3 ML VIAL.NEB NEB SCH ×6 (04:15→23:30)
[2016-12-08] MEDS: DEXILANT 30 MG GT SCH (05:41)
[2016-12-08] MEDS: BLOOD SUGAR DIAGNOSTIC 1 EACH STRIP IN SCH ×3 (05:41→17:38)
[2016-12-08] MEDS: INSULIN REGULAR, HUMAN 100 UNIT/ML 3 ML VIAL SQ PRN (05:42)
[2016-12-08 08:07] LABS: EOSINOPHILS # (AUTO) 0.7 /CMM (0.0-0.7); EOSINOPHILS % (AUTO) 3.2 % (0.0-6.0); HEMATOCRIT 23 % (33-45); HEMOGLOBIN 7.9 g/dL (11.5-14.8); LYMPHOCYTES # (AUTO) 2.2 /CMM (0.8-4.8); LYMPHOCYTES % (AUTO) 9.7 % (20.0-44.0); MEAN CORPUSCULAR HEMOGLOBIN 33 PG (26.0-33.0); MEAN CORPUSCULAR HGB CONC 34 g/dl (31.0-36.0); MEAN CORPUSCULAR VOLUME 97 fL (82-100); MONOCYTES % (AUTO) 4.3 % (2.0-12.0); NEUTROPHILS # (AUTO) 18.7 /CMM (1.8-8.9); NEUTROPHILS % (AUTO) 82.8 % (43.0-81.0); PLATELET COUNT (AUTO) 488 /CMM (150-450); RDW COEFFICIENT OF VARIATION 15.3 (11.5-15.0); RED BLOOD CELL COUNT(AUTO) 2.41 MIL/uL (4.0-5.2); WHITE BLOOD COUNT (AUTO) 22.6 K/uL (4.3-11.0)
[2016-12-08 08:10] VITALS: BP 124/70
[2016-12-08] MEDS: MVI/MINERALS LIQUID (CEROVITE) GT SCH (09:05)
[2016-12-08] MEDS: ASPIRIN 81 MG TAB.CHEW GT SCH (09:05)
[2016-12-08] MEDS: LEVETIRACETAM SOL (5 ML) 100 MG/ML UDC GT SCH ×2 (09:05→20:25)
[2016-12-08] MEDS: TRILEPTAL GT SCH ×2 (09:05→20:25)
[2016-12-08] MEDS: PROSOURCE / PROSTAT (PYXIS) 30 ML UDC GT SCH ×2 (09:05→17:38)
[2016-12-08] MEDS: Z GUARD REMEDY 4 OZ OINT TP SCH ×2 (09:06→20:26)
[2016-12-08] MEDS: HYDROGEN PEROXIDE 480 ML BOTTLE TP SCH ×2 (09:06→20:25)
[2016-12-08] MEDS: ACIDOPHILUS/BULGARICUS 1 EACH TAB.CHEW PO SCH ×3 (09:06→17:38)
[2016-12-08] MEDS: NEOMY SULF/BACITRAC ZN/POLY 15 GM TUBE TP SCH ×2 (09:06→20:26)
[2016-12-08] MEDS: VITAMINS A AND D 56.7 GM TUBE TP SCH ×2 (09:06→20:26)
[2016-12-08] MEDS: CALCIUM CARBONATE 500 MG TAB.CHEW GT SCH ×2 (09:06→17:38)
[2016-12-08] MEDS: ASCORBIC ACID 500 MG TABLET GT SCH (09:06)
--- NOTE | 2016-12-08 09:33 | NUR ---
Relayed CBC result to NAN Loredo. WBC 22.6 Hgb 7.9 Hct 23. Received order to give Merrem 1 gm IV q 12 hours for UTI and change Bourgeois catheter. Notified pt's sister.
[2016-12-08 10:58] LABS: BAND % (MANUAL) 6 % (0.0-5.0); EOSINOPHILS % (MANUAL) 1 % (0-4); LYMPHOCYTES % (MANUAL) 14 % (16-48); METAMYELOCYTES % 2 % (0-0); MONOCYTES % (MANUAL) 7 % (0-11.0); MYELOCYTES % 4 % (0-0); NEUTROPHILS % (MANUAL) 66 (42-76)
[2016-12-08] MEDS ORDERED: MEROPENEM 1 G in IV NS 0.9% 100 ML IV SCH (12:00)
--- NOTE | 2016-12-08 14:30 | NUR ---
Seen by NAN Loredo. Relayed urine C/S result to her. Already started pt on Merrem for UTI today.
--- NOTE | 2016-12-08 16:00 | NUR ---
NAN Loredo ordered to change Meropenem to 500 mg IV q 12 hours for 7 days for UTI. CBC on 12/11/16.
[2016-12-08 19:48] VITALS: BP 111/70
[2016-12-09] MEDS ORDERED: MEROPENEM 0.5 G in IV NS 0.9% 100 ML IV SCH ×2
[2016-12-09] MEDS: BLOOD SUGAR DIAGNOSTIC 1 EACH STRIP IN SCH ×5 (00:08→23:32)
[2016-12-09] MEDS: MEROPENEM 500 MG in IV NS 0.9% 50 ML IV SCH ×2 (00:40→12:26)
[2016-12-09] MEDS: ALBUTEROL FS 2.5 MG/3 ML VIAL.NEB NEB SCH ×6 (03:50→23:17)
[2016-12-09] MEDS: DEXILANT 30 MG GT SCH (05:21)
[2016-12-09 07:47] VITALS: BP 101/66
[2016-12-09] MEDS: ASPIRIN 81 MG TAB.CHEW GT SCH (09:53)
[2016-12-09] MEDS: PROSOURCE / PROSTAT (PYXIS) 30 ML UDC GT SCH ×2 (09:53→17:20)
[2016-12-09] MEDS: TRILEPTAL GT SCH ×2 (09:53→20:08)
[2016-12-09] MEDS: MVI/MINERALS LIQUID (CEROVITE) GT SCH (09:53)
[2016-12-09] MEDS: LEVETIRACETAM SOL (5 ML) 100 MG/ML UDC GT SCH ×2 (09:53→20:08)
[2016-12-09] MEDS: CALCIUM CARBONATE 500 MG TAB.CHEW GT SCH ×2 (09:53→17:20)
[2016-12-09] MEDS: VITAMINS A AND D 56.7 GM TUBE TP SCH ×2 (09:54→20:08)
[2016-12-09] MEDS: HYDROGEN PEROXIDE 480 ML BOTTLE TP SCH ×2 (09:54→20:08)
[2016-12-09] MEDS: NEOMY SULF/BACITRAC ZN/POLY 15 GM TUBE TP SCH ×2 (09:54→20:08)
[2016-12-09] MEDS: ACIDOPHILUS/BULGARICUS 1 EACH TAB.CHEW PO SCH ×3 (09:54→17:20)
[2016-12-09] MEDS: ASCORBIC ACID 500 MG TABLET GT SCH (09:54)
[2016-12-09] MEDS: Z GUARD REMEDY 4 OZ OINT TP SCH ×2 (09:54→20:08)
[2016-12-09] MEDS: GLYTROL 1,000 ML BAG GT PRN (12:34)
[2016-12-09 19:35] VITALS: BP 131/74
[2016-12-10] MEDS: ALBUTEROL FS 2.5 MG/3 ML VIAL.NEB NEB SCH ×6 (03:33→23:36)
[2016-12-10] MEDS: DEXILANT 30 MG GT SCH (05:02)
[2016-12-10] MEDS: BLOOD SUGAR DIAGNOSTIC 1 EACH STRIP IN SCH ×4 (05:44→23:16)
[2016-12-10 07:38] VITALS: BP 136/73
[2016-12-10 08:30] LABS: EOSINOPHILS # (AUTO) 0.6 /CMM (0.0-0.7); EOSINOPHILS % (AUTO) 2.3 % (0.0-6.0); HEMATOCRIT 27 % (33-45); HEMOGLOBIN 9.2 g/dL (11.5-14.8); LYMPHOCYTES # (AUTO) 2.1 /CMM (0.8-4.8); LYMPHOCYTES % (AUTO) 8.5 % (20.0-44.0); MEAN CORPUSCULAR HEMOGLOBIN 33 PG (26.0-33.0); MEAN CORPUSCULAR HGB CONC 34 g/dl (31.0-36.0); MEAN CORPUSCULAR VOLUME 97 fL (82-100); MONOCYTES # (AUTO) 0.9 /CMM (0.1-1.30); MONOCYTES % (AUTO) 3.5 % (2.0-12.0); NEUTROPHILS # (AUTO) 21.6 /CMM (1.8-8.9); NEUTROPHILS % (AUTO) 85.7 % (43.0-81.0); PLATELET COUNT (AUTO) 565 /CMM (150-450); RDW COEFFICIENT OF VARIATION 15.3 (11.5-15.0); RED BLOOD CELL COUNT(AUTO) 2.79 MIL/uL (4.0-5.2); WHITE BLOOD COUNT (AUTO) 25.2 K/uL (4.3-11.0)
[2016-12-10] MEDS: ASPIRIN 81 MG TAB.CHEW GT SCH (09:00)
[2016-12-10] MEDS: PROSOURCE / PROSTAT (PYXIS) 30 ML UDC GT SCH ×2 (09:00→17:30)
[2016-12-10] MEDS: HYDROGEN PEROXIDE 480 ML BOTTLE TP SCH ×2 (09:00→20:12)
[2016-12-10] MEDS: MVI/MINERALS LIQUID (CEROVITE) GT SCH (09:00)
[2016-12-10] MEDS: NEOMY SULF/BACITRAC ZN/POLY 15 GM TUBE TP SCH ×2 (09:00→20:12)
[2016-12-10] MEDS: HYDROGEL DRESSING 90 GM TUBE TP SCH ×2 (09:00→20:12)
[2016-12-10] MEDS: ACIDOPHILUS/BULGARICUS 1 EACH TAB.CHEW PO SCH ×3 (09:00→17:30)
[2016-12-10] MEDS: LEVETIRACETAM SOL (5 ML) 100 MG/ML UDC GT SCH ×2 (09:00→20:11)
[2016-12-10] MEDS: TRILEPTAL GT SCH ×2 (09:00→20:11)
[2016-12-10] MEDS: VITAMINS A AND D 56.7 GM TUBE TP SCH ×2 (09:00→20:12)
[2016-12-10] MEDS: CALCIUM CARBONATE 500 MG TAB.CHEW GT SCH ×2 (09:00→17:30)
[2016-12-10] MEDS: ASCORBIC ACID 500 MG TABLET GT SCH (09:00)
[2016-12-10] MEDS: Z GUARD REMEDY 4 OZ OINT TP SCH ×2 (09:00→20:12)
--- NOTE | 2016-12-10 09:30 | NUR ---
Called and relayed all lab results to NAN Loredo, From report from weight shifter patient has poor IV access and needs midline. Gertrude made aware, okay to insert midline. silvering department supervisor Mirna made aware, will notify IV nurse for midline insertion. Noted and carried out.
[2016-12-10 09:59] LABS: EOSINOPHILS % (MANUAL) 1 % (0-4); LYMPHOCYTES % (MANUAL) 10 % (16-48); MONOCYTES % (MANUAL) 7 % (0-11.0); NEUTROPHILS % (MANUAL) 82 (42-76)
[2016-12-10] MEDS: GLYTROL 1,000 ML BAG GT PRN (10:30)
[2016-12-10] MEDS: INSULIN REGULAR, HUMAN 100 UNIT/ML 3 ML VIAL SQ PRN (11:23)
[2016-12-10] MEDS: MEROPENEM 500 MG in IV NS 0.9% 50 ML IV SCH ×4 (12:00→23:52)
--- NOTE | 2016-12-10 12:00 | NUR ---
IV nurse came and inserted midline to left upper arm, patent and intact, with good blood return. Patients' sister joe came today to visit her sister. Shes' aware of IV ATB therapy. She verbalized concerned of patients' skin dry, she requested to apply lotion she bought and kept at bedside.
[2016-12-10 20:13] VITALS: BP 103/56
[2016-12-11] MEDS: GLYTROL 1,000 ML BAG GT PRN (02:15)
[2016-12-11] MEDS: ALBUTEROL FS 2.5 MG/3 ML VIAL.NEB NEB SCH ×6 (03:33→23:54)
[2016-12-11] MEDS: DEXILANT 30 MG GT SCH (05:02)
[2016-12-11] MEDS: BLOOD SUGAR DIAGNOSTIC 1 EACH STRIP IN SCH ×3 (05:46→17:23)
--- NOTE | 2016-12-11 06:46 | NUR ---
Pt menstruating with moderate amount,good perineal care provided,will continue to monitor.
[2016-12-11 06:54] LABS: BASOPHILS # (AUTO) 0.1 /CMM (0.0-0.2); BASOPHILS % (AUTO) 0.3 % (0.0-2.0); EOSINOPHILS # (AUTO) 0.6 /CMM (0.0-0.7); HEMATOCRIT 23 % (33-45); HEMOGLOBIN 7.5 g/dL (11.5-14.8); LYMPHOCYTES # (AUTO) 2.6 /CMM (0.8-4.8); MEAN CORPUSCULAR HEMOGLOBIN 32 PG (26.0-33.0); MEAN CORPUSCULAR HGB CONC 34 g/dl (31.0-36.0); MEAN CORPUSCULAR VOLUME 97 fL (82-100); MONOCYTES # (AUTO) 1.9 /CMM (0.1-1.30); MONOCYTES % (AUTO) 8.5 % (2.0-12.0); NEUTROPHILS # (AUTO) 16.8 /CMM (1.8-8.9); NEUTROPHILS % (AUTO) 76.2 % (43.0-81.0); PLATELET COUNT (AUTO) 472 /CMM (150-450); RDW COEFFICIENT OF VARIATION 15.6 (11.5-15.0); RED BLOOD CELL COUNT(AUTO) 2.33 MIL/uL (4.0-5.2)
[2016-12-11 07:23] VITALS: BP 121/74
[2016-12-11] MEDS: LEVETIRACETAM SOL (5 ML) 100 MG/ML UDC GT SCH ×2 (09:00→20:04)
[2016-12-11] MEDS: HYDROGEL DRESSING 90 GM TUBE TP SCH ×2 (09:00→21:21)
[2016-12-11] MEDS: HYDROGEN PEROXIDE 480 ML BOTTLE TP SCH ×2 (09:00→21:21)
[2016-12-11] MEDS: ACIDOPHILUS/BULGARICUS 1 EACH TAB.CHEW PO SCH ×3 (09:00→17:23)
[2016-12-11] MEDS: VITAMINS A AND D 56.7 GM TUBE TP SCH ×2 (09:00→21:21)
[2016-12-11] MEDS: NEOMY SULF/BACITRAC ZN/POLY 15 GM TUBE TP SCH ×2 (09:00→21:21)
[2016-12-11] MEDS: ASCORBIC ACID 500 MG TABLET GT SCH (09:00)
[2016-12-11] MEDS: PROSOURCE / PROSTAT (PYXIS) 30 ML UDC GT SCH ×2 (09:00→17:23)
[2016-12-11] MEDS: CALCIUM CARBONATE 500 MG TAB.CHEW GT SCH ×2 (09:00→17:23)
[2016-12-11] MEDS: MVI/MINERALS LIQUID (CEROVITE) GT SCH (09:00)
[2016-12-11] MEDS: ASPIRIN 81 MG TAB.CHEW GT SCH (09:00)
[2016-12-11] MEDS: Z GUARD REMEDY 4 OZ OINT TP SCH ×2 (09:00→21:21)
[2016-12-11] MEDS: TRILEPTAL GT SCH ×2 (09:00→20:04)
--- NOTE | 2016-12-11 09:47 | NUR ---
Relayed CBC result to NAN Loredo, WBC 22.0 Hgb 7.5 Hct 23. Received order to do CXR today.
[2016-12-11] MEDS: MEROPENEM 500 MG in IV NS 0.9% 50 ML IV SCH ×2 (11:43→23:55)
--- NOTE | 2016-12-11 12:38 | NUR ---
Relayed CXR result to NAN Loredo. No new order.
--- NOTE | 2016-12-11 15:25 | NUR ---
NAN Loredo came to see pt. Received order to give Vancomycin IV pharmacy to dose for 7 days.
--- NOTE | 2016-12-11 16:45 | NUR ---
Received order to give Vancomycin 1 gm IV q 24 hours for 7 days for increased WBC and ESBL urine. Addendum: 12/11/16 at 1848 by SARITA GOMEZ RN Notified pt's sister.
--- NOTE | 2016-12-11 17:00 | NUR ---
Administered Vancomycin 1 gm IV as ordered.
[2016-12-11 20:39] VITALS: BP 129/72
[2016-12-11] MEDS: VANCOMYCIN 1 GM in IV D5W 250ml IV SCH (21:06)
[2016-12-12] MEDS: INSULIN REGULAR, HUMAN 100 UNIT/ML 3 ML VIAL SQ PRN ×2 (00:08→05:20)
[2016-12-12] MEDS: BLOOD SUGAR DIAGNOSTIC 1 EACH STRIP IN SCH ×4 (00:08→17:36)
[2016-12-12] MEDS: ALBUTEROL FS 2.5 MG/3 ML VIAL.NEB NEB SCH ×6 (03:15→23:36)
[2016-12-12] MEDS: DEXILANT 30 MG GT SCH (05:20)
[2016-12-12 07:34] VITALS: BP 109/59
[2016-12-12] MEDS: ASCORBIC ACID 500 MG TABLET GT SCH (08:53)
[2016-12-12] MEDS: TRILEPTAL GT SCH ×2 (08:53→20:57)
[2016-12-12] MEDS: HYDROGEL DRESSING 90 GM TUBE TP SCH ×2 (08:53→20:57)
[2016-12-12] MEDS: MVI/MINERALS LIQUID (CEROVITE) GT SCH (08:53)
[2016-12-12] MEDS: ASPIRIN 81 MG TAB.CHEW GT SCH (08:53)
[2016-12-12] MEDS: LEVETIRACETAM SOL (5 ML) 100 MG/ML UDC GT SCH ×2 (08:53→20:57)
[2016-12-12] MEDS: PROSOURCE / PROSTAT (PYXIS) 30 ML UDC GT SCH ×2 (08:53→17:36)
[2016-12-12] MEDS: ACIDOPHILUS/BULGARICUS 1 EACH TAB.CHEW PO SCH ×3 (08:53→17:36)
[2016-12-12] MEDS: HYDROGEN PEROXIDE 480 ML BOTTLE TP SCH ×2 (08:53→20:57)
[2016-12-12] MEDS: CALCIUM CARBONATE 500 MG TAB.CHEW GT SCH ×2 (08:53→17:36)
[2016-12-12] MEDS: VITAMINS A AND D 56.7 GM TUBE TP SCH ×2 (08:54→20:58)
[2016-12-12] MEDS: NEOMY SULF/BACITRAC ZN/POLY 15 GM TUBE TP SCH ×2 (08:54→20:57)
[2016-12-12] MEDS: Z GUARD REMEDY 4 OZ OINT TP SCH ×2 (08:54→20:57)
[2016-12-12] MEDS: MEROPENEM 500 MG in IV NS 0.9% 50 ML IV SCH (11:23)
[2016-12-12] MEDS: MAGNESIUM HYDROXIDE 30 ML UDC GT PRN (18:28)
[2016-12-12] MEDS: GLYTROL 1,000 ML BAG GT PRN (18:28)
[2016-12-12 20:05] VITALS: BP 103/65
[2016-12-12] MEDS: VANCOMYCIN 1 GM in IV D5W 250ml IV SCH (21:10)
[2016-12-13] MEDS: MEROPENEM 500 MG in IV NS 0.9% 50 ML IV SCH ×2 (00:10→12:38)
[2016-12-13] MEDS: BLOOD SUGAR DIAGNOSTIC 1 EACH STRIP IN SCH ×4 (00:40→17:11)
[2016-12-13] MEDS: INSULIN REGULAR, HUMAN 100 UNIT/ML 3 ML VIAL SQ PRN ×2 (00:40→05:45)
[2016-12-13] MEDS: ALBUTEROL FS 2.5 MG/3 ML VIAL.NEB NEB SCH ×6 (04:14→23:58)
[2016-12-13] MEDS: GLYTROL 1,000 ML BAG GT PRN ×2 (04:24→22:49)
[2016-12-13] MEDS: DEXILANT 30 MG GT SCH (05:44)
[2016-12-13 07:49] VITALS: BP 132/75
[2016-12-13] MEDS: ASCORBIC ACID 500 MG TABLET GT SCH (09:00)
[2016-12-13] MEDS: PROSOURCE / PROSTAT (PYXIS) 30 ML UDC GT SCH ×2 (09:00→17:11)
[2016-12-13] MEDS: CALCIUM CARBONATE 500 MG TAB.CHEW GT SCH ×2 (09:00→17:11)
[2016-12-13] MEDS: MVI/MINERALS LIQUID (CEROVITE) GT SCH (09:00)
[2016-12-13] MEDS: ACIDOPHILUS/BULGARICUS 1 EACH TAB.CHEW PO SCH ×3 (09:00→17:11)
[2016-12-13] MEDS: ASPIRIN 81 MG TAB.CHEW GT SCH (09:00)
[2016-12-13] MEDS: LEVETIRACETAM SOL (5 ML) 100 MG/ML UDC GT SCH ×2 (09:00→20:47)
[2016-12-13] MEDS: TRILEPTAL GT SCH ×2 (09:00→20:47)
[2016-12-13] MEDS: HYDROGEL DRESSING 90 GM TUBE TP SCH ×2 (11:00→20:47)
[2016-12-13] MEDS: NEOMY SULF/BACITRAC ZN/POLY 15 GM TUBE TP SCH ×2 (11:00→20:48)
[2016-12-13] MEDS: VITAMINS A AND D 56.7 GM TUBE TP SCH ×2 (11:00→20:48)
[2016-12-13] MEDS: Z GUARD REMEDY 4 OZ OINT TP SCH ×2 (11:00→20:48)
[2016-12-13] MEDS: HYDROGEN PEROXIDE 480 ML BOTTLE TP SCH ×2 (11:00→20:47)
[2016-12-13] MEDS: VANCOMYCIN 1 GM in IV D5W 250ml IV SCH (21:00)
[2016-12-13 21:31] VITALS: BP 115/60
[2016-12-14] MEDS: INSULIN REGULAR, HUMAN 100 UNIT/ML 3 ML VIAL SQ PRN ×2 (00:05→06:03)
[2016-12-14] MEDS: BLOOD SUGAR DIAGNOSTIC 1 EACH STRIP IN SCH ×4 (00:05→17:38)
[2016-12-14] MEDS: MEROPENEM 500 MG in IV NS 0.9% 50 ML IV SCH ×2 (00:36→12:14)
[2016-12-14] MEDS: ALBUTEROL FS 2.5 MG/3 ML VIAL.NEB NEB SCH ×6 (03:27→22:56)
[2016-12-14] MEDS: DEXILANT 30 MG GT SCH (06:03)
[2016-12-14 07:46] VITALS: BP 147/76
[2016-12-14] MEDS: CALCIUM CARBONATE 500 MG TAB.CHEW GT SCH ×2 (09:05→16:30)
[2016-12-14] MEDS: ASCORBIC ACID 500 MG TABLET GT SCH (09:05)
[2016-12-14] MEDS: TRILEPTAL GT SCH ×2 (09:05→21:06)
[2016-12-14] MEDS: PROSOURCE / PROSTAT (PYXIS) 30 ML UDC GT SCH ×2 (09:05→16:30)
[2016-12-14] MEDS: LEVETIRACETAM SOL (5 ML) 100 MG/ML UDC GT SCH ×2 (09:05→21:06)
[2016-12-14] MEDS: ACIDOPHILUS/BULGARICUS 1 EACH TAB.CHEW PO SCH ×3 (09:05→16:30)
[2016-12-14] MEDS: ASPIRIN 81 MG TAB.CHEW GT SCH (09:05)
[2016-12-14] MEDS: MVI/MINERALS LIQUID (CEROVITE) GT SCH (09:05)
[2016-12-14] MEDS: Z GUARD REMEDY 4 OZ OINT TP SCH ×2 (09:45→21:06)
[2016-12-14] MEDS: NEOMY SULF/BACITRAC ZN/POLY 15 GM TUBE TP SCH ×2 (09:45→21:06)
[2016-12-14] MEDS: VITAMINS A AND D 56.7 GM TUBE TP SCH ×2 (09:45→21:06)
[2016-12-14] MEDS: HYDROGEN PEROXIDE 480 ML BOTTLE TP SCH ×2 (09:45→21:06)
[2016-12-14] MEDS: HYDROGEL DRESSING 90 GM TUBE TP SCH ×2 (09:45→21:06)
--- NOTE | 2016-12-14 15:00 | NUR ---
Received order from Pharmacist Evelyne to continue same dose of Vacomycin IV noted and carried out. NAN Loredo aware.
[2016-12-14 20:13] VITALS: BP 112/52
[2016-12-14] MEDS: VANCOMYCIN 1 GM in IV D5W 250ml IV SCH (21:00)
[2016-12-15] MEDS: BLOOD SUGAR DIAGNOSTIC 1 EACH STRIP IN SCH ×4 (00:54→18:43)
[2016-12-15] MEDS: ALBUTEROL FS 2.5 MG/3 ML VIAL.NEB NEB SCH ×6 (02:59→23:30)
[2016-12-15] MEDS: DEXILANT 30 MG GT SCH (05:28)
--- NOTE | 2016-12-15 07:03 | NUR ---
Received female fariha pt on mechanical vent. Pt fariha is secure. Vent is plugged into a red outlet, alarms are set and audible, and BVM is at beside. Addendum: 12/15/16 at 0704 by MARKIE PINO RT Amended: Links added.
[2016-12-15 07:58] VITALS: BP 126/72
[2016-12-15] MEDS: ASPIRIN 81 MG TAB.CHEW GT SCH (09:32)
[2016-12-15] MEDS: CALCIUM CARBONATE 500 MG TAB.CHEW GT SCH ×2 (09:32→16:46)
[2016-12-15] MEDS: ASCORBIC ACID 500 MG TABLET GT SCH (09:32)
[2016-12-15] MEDS: ACIDOPHILUS/BULGARICUS 1 EACH TAB.CHEW PO SCH ×3 (09:32→16:46)
[2016-12-15] MEDS: MVI/MINERALS LIQUID (CEROVITE) GT SCH (09:32)
[2016-12-15] MEDS: TRILEPTAL GT SCH ×2 (09:32→21:05)
[2016-12-15] MEDS: LEVETIRACETAM SOL (5 ML) 100 MG/ML UDC GT SCH ×2 (09:32→21:05)
[2016-12-15] MEDS: PROSOURCE / PROSTAT (PYXIS) 30 ML UDC GT SCH ×2 (09:32→16:46)
[2016-12-15] MEDS: HYDROGEL DRESSING 90 GM TUBE TP SCH ×2 (11:30→21:06)
[2016-12-15] MEDS: NEOMY SULF/BACITRAC ZN/POLY 15 GM TUBE TP SCH ×2 (11:30→21:06)
[2016-12-15] MEDS: Z GUARD REMEDY 4 OZ OINT TP SCH ×2 (11:30→21:06)
[2016-12-15] MEDS: HYDROGEN PEROXIDE 480 ML BOTTLE TP SCH ×2 (11:30→21:06)
[2016-12-15] MEDS: VITAMINS A AND D 56.7 GM TUBE TP SCH ×2 (11:30→21:06)
[2016-12-15] MEDS: MEROPENEM 500 MG in IV NS 0.9% 50 ML IV SCH ×3 (12:31)
[2016-12-15 15:12] VITALS: BP_SYST 98
--- NOTE | 2016-12-15 18:32 | NUR ---
Seen by NAN Vargas. Notified her that pt's left upper arm appears swollen and larger than the right upper arm. No tenderness, no redness noted. Pt has a midline catheter on the left upper arm. Received order to do venous duplex scan on the left upper arm. Notified pt's sister.
[2016-12-15 20:10] VITALS: BP 114/62
[2016-12-15] MEDS: VANCOMYCIN 1 GM in IV D5W 250ml IV SCH (21:56)
[2016-12-16] MEDS: BLOOD SUGAR DIAGNOSTIC 1 EACH STRIP IN SCH ×4 (00:09→17:47)
[2016-12-16] MEDS: ALBUTEROL FS 2.5 MG/3 ML VIAL.NEB NEB SCH ×6 (03:23→23:27)
[2016-12-16] MEDS: DEXILANT 30 MG GT SCH (05:34)
[2016-12-16 08:15] VITALS: BP 119/56
[2016-12-16] MEDS: ACIDOPHILUS/BULGARICUS 1 EACH TAB.CHEW PO SCH ×3 (08:39→16:03)
[2016-12-16] MEDS: MVI/MINERALS LIQUID (CEROVITE) GT SCH (08:39)
[2016-12-16] MEDS: LEVETIRACETAM SOL (5 ML) 100 MG/ML UDC GT SCH ×2 (08:39→20:45)
[2016-12-16] MEDS: TRILEPTAL GT SCH ×2 (08:39→20:45)
[2016-12-16] MEDS: ASPIRIN 81 MG TAB.CHEW GT SCH (08:39)
[2016-12-16] MEDS: CALCIUM CARBONATE 500 MG TAB.CHEW GT SCH ×2 (08:39→16:03)
[2016-12-16] MEDS: ASCORBIC ACID 500 MG TABLET GT SCH (08:39)
[2016-12-16] MEDS: PROSOURCE / PROSTAT (PYXIS) 30 ML UDC GT SCH ×2 (08:39→16:02)
--- NOTE | 2016-12-16 09:50 | NUR ---
Pt still noted with right forearm multiple scratches. Received order to continue applying triple antibiotic ointment q shift for 14 days. Pt was seen scratching right arm. Fingernails are short and lotion was applied to pt's skin. Notified pt's sister Beckie.
[2016-12-16] MEDS: Z GUARD REMEDY 4 OZ OINT TP SCH ×2 (11:45→20:46)
[2016-12-16] MEDS: VITAMINS A AND D 56.7 GM TUBE TP SCH ×2 (11:45→20:46)
[2016-12-16] MEDS: HYDROGEN PEROXIDE 480 ML BOTTLE TP SCH ×2 (11:45→20:46)
[2016-12-16] MEDS: HYDROGEL DRESSING 90 GM TUBE TP SCH ×2 (11:45→20:45)
--- NOTE | 2016-12-16 17:24 | NUR ---
Pt's left upper extremity venous duplex scan showed no DVT. Notified RN CLINICAL RESEARCH Anna Alicia and also pt's sister Beckie via phone. Beckie visited earlier today. Addendum: 12/16/16 at 1729 by SARITA GOMEZ RN Pt's sister Beckie appreciative of call and said she will come tomorrow. She also mentioned that she does not want the pt to have a midline again, she knows that the pt is a hardstick and she wants the nurses to try placing a peripheral IV line on the pt's feet next time she needs a line instead of placing a midline or PICC line. Addendum: 12/16/16 at 1732 by SARITA GOMEZ RN She said she wants to be consulted first before the pt gets a midline or PICC line if in case the pt really needs it.
[2016-12-16 19:49] VITALS: BP 130/76
[2016-12-16] MEDS: VANCOMYCIN 1 GM in IV D5W 250ml IV SCH (20:33)
[2016-12-16] MEDS: NEOMY SULF/BACITRAC ZN/POLY 15 GM TUBE TP SCH (20:46)
[2016-12-17] MEDS: ALBUTEROL FS 2.5 MG/3 ML VIAL.NEB NEB SCH ×5 (03:42→23:17)
[2016-12-17] MEDS: BLOOD SUGAR DIAGNOSTIC 1 EACH STRIP IN SCH ×5 (05:44→23:52)
[2016-12-17] MEDS: DEXILANT 30 MG GT SCH (05:44)
[2016-12-17 07:58] VITALS: BP 132/71
[2016-12-17] MEDS: TRILEPTAL GT SCH ×2 (08:52→21:04)
[2016-12-17] MEDS: ASPIRIN 81 MG TAB.CHEW GT SCH (08:52)
[2016-12-17] MEDS: LEVETIRACETAM SOL (5 ML) 100 MG/ML UDC GT SCH ×2 (08:53→21:04)
[2016-12-17] MEDS: MVI/MINERALS LIQUID (CEROVITE) GT SCH (08:54)
[2016-12-17] MEDS: ACIDOPHILUS/BULGARICUS 1 EACH TAB.CHEW PO SCH ×3 (08:54→17:08)
[2016-12-17] MEDS: CALCIUM CARBONATE 500 MG TAB.CHEW GT SCH ×2 (08:54→17:08)
[2016-12-17] MEDS: ASCORBIC ACID 500 MG TABLET GT SCH (08:54)
[2016-12-17] MEDS: PROSOURCE / PROSTAT (PYXIS) 30 ML UDC GT SCH ×2 (08:54→17:07)
[2016-12-17] MEDS: NEOMY SULF/BACITRAC ZN/POLY 15 GM TUBE TP SCH ×2 (09:00→21:05)
[2016-12-17] MEDS: VITAMINS A AND D 56.7 GM TUBE TP SCH ×2 (09:00→21:05)
[2016-12-17] MEDS: Z GUARD REMEDY 4 OZ OINT TP SCH ×2 (09:00→21:05)
[2016-12-17] MEDS: HYDROGEL DRESSING 90 GM TUBE TP SCH ×2 (09:00→21:04)
[2016-12-17] MEDS: HYDROGEN PEROXIDE 480 ML BOTTLE TP SCH ×2 (09:00→21:04)
--- NOTE | 2016-12-17 10:22 | NUR ---
Called NAN Loredo, notified her that patients' midline removed yesterday, patients' sister Beckie visiting right now, She verbalized that she noted yesterday her sisters' left arm was swollen. Reported to charge nurse, midline was discontinued. Patients' sister requesting not to put back midline and okay to put IV to her sisters' lower extremities. Patient has no fever, maher catheter patent and intact draining to yellow urine output, abdomen not distended. Patient currently on IV ATB therapy vanco 1 gm q 24 hrs x 7 days. NAN Loredo ordered to do repeat CBC (stat) today. Patients' sister made aware of new orders.
[2016-12-17 12:08] LABS: BASOPHILS # (AUTO) 0.1 /CMM (0.0-0.2); BASOPHILS % (AUTO) 0.2 % (0.0-2.0); EOSINOPHILS # (AUTO) 0.9 /CMM (0.0-0.7); EOSINOPHILS % (AUTO) 2.9 % (0.0-6.0); HEMATOCRIT 25 % (33-45); HEMOGLOBIN 8.4 g/dL (11.5-14.8); LYMPHOCYTES # (AUTO) 2.5 /CMM (0.8-4.8); LYMPHOCYTES % (AUTO) 8.4 % (20.0-44.0); MEAN CORPUSCULAR HEMOGLOBIN 32 PG (26.0-33.0); MEAN CORPUSCULAR HGB CONC 33 g/dl (31.0-36.0); MEAN CORPUSCULAR VOLUME 97 fL (82-100); MONOCYTES # (AUTO) 1.2 /CMM (0.1-1.30); MONOCYTES % (AUTO) 4.1 % (2.0-12.0); NEUTROPHILS # (AUTO) 25.4 /CMM (1.8-8.9); NEUTROPHILS % (AUTO) 84.4 % (43.0-81.0); PLATELET COUNT (AUTO) 513 /CMM (150-450); RDW COEFFICIENT OF VARIATION 15.4 (11.5-15.0); RED BLOOD CELL COUNT(AUTO) 2.59 MIL/uL (4.0-5.2)
[2016-12-17 12:13] LABS: WHITE BLOOD COUNT (AUTO) 30.1 K/uL (4.3-11.0)
--- NOTE | 2016-12-17 12:30 | NUR ---
Lab called and reported patient has critical lab result WBC 30.1. NAN Loredo called and made aware. Has new orders may insert heplock to lower extremities. Inserted IV to right foot. Per NAN Loredo continue same IV ATB VANCO 1gm q 24 hrs x 7 days. Patients' sister made aware of elevated WBC, with new order. Noted and carried out.
[2016-12-17 12:40] LABS: BAND % (MANUAL) 1 % (0.0-5.0); EOSINOPHILS % (MANUAL) 2 % (0-4); LYMPHOCYTES % (MANUAL) 8 % (16-48); MONOCYTES % (MANUAL) 6 % (0-11.0); NEUTROPHILS % (MANUAL) 83 (42-76)
[2016-12-17] MEDS: INSULIN REGULAR, HUMAN 100 UNIT/ML 3 ML VIAL SQ PRN ×3 (12:45→23:52)
--- NOTE | 2016-12-17 17:00 | NUR ---
NAN Loredo came and visited patient, she ordered Meropenem 500 mg IV Q 8 HRS. Portable chest x ray arvin 12/18. Faxed order to [facility]. Noted and carried out.
[2016-12-17] MEDS: GLYTROL 1,000 ML BAG GT PRN (17:17)
--- NOTE | 2016-12-17 18:00 | NUR ---
Per [facility], spoke to Ramses, needs stat BMP per protocol to dose meropenem. Per RAMSES will send 1 dose of Meropenem now. Ordered BMP STAT. Noted and carried out.
[2016-12-17] MEDS ORDERED: MEROPENEM 500 MG in IV NS 0.9% 50 ML IV ONE (18:30)
--- NOTE | 2016-12-17 18:45 | NUR ---
Started Meropenem 500 mg IV NOW, okay 1 dose now per pharmacist (Ramses). Next shift aware needs stat BMP to dose meropenem.
[2016-12-17 18:52] LABS: CALCIUM, SERUM 9.5 mg/dL (8.5-10.1); CREATININE 1.3 mg/dL (0.6-1.3); POTASSIUM 3.8 mmol/L (3.5-5.1)
[2016-12-17 19:57] VITALS: BP 135/67
[2016-12-17] MEDS: VANCOMYCIN 1 GM in IV D5W 250ml IV SCH (20:56)
[2016-12-17] MEDS: MAGNESIUM HYDROXIDE 30 ML UDC GT PRN (23:52)
[2016-12-18] MEDS: ALBUTEROL FS 2.5 MG/3 ML VIAL.NEB NEB SCH ×6 (04:04→23:35)
[2016-12-18] MEDS: MEROPENEM 500 MG in IV NS 0.9% 50 ML IV SCH ×3 (05:09→21:22)
[2016-12-18] MEDS: DEXILANT 30 MG GT SCH (05:23)
[2016-12-18] MEDS: BLOOD SUGAR DIAGNOSTIC 1 EACH STRIP IN SCH ×4 (05:23→23:32)
[2016-12-18] MEDS: INSULIN REGULAR, HUMAN 100 UNIT/ML 3 ML VIAL SQ PRN ×2 (05:23→23:33)
[2016-12-18 07:56] VITALS: BP 138/79
[2016-12-18] MEDS: LEVETIRACETAM SOL (5 ML) 100 MG/ML UDC GT SCH ×2 (09:00→20:54)
[2016-12-18] MEDS: PROSOURCE / PROSTAT (PYXIS) 30 ML UDC GT SCH ×2 (09:00→17:00)
[2016-12-18] MEDS: Z GUARD REMEDY 4 OZ OINT TP SCH ×2 (09:00→20:55)
[2016-12-18] MEDS: HYDROGEN PEROXIDE 480 ML BOTTLE TP SCH ×2 (09:00→20:55)
[2016-12-18] MEDS: ACIDOPHILUS/BULGARICUS 1 EACH TAB.CHEW PO SCH ×3 (09:00→17:00)
[2016-12-18] MEDS: MVI/MINERALS LIQUID (CEROVITE) GT SCH (09:00)
[2016-12-18] MEDS: HYDROGEL DRESSING 90 GM TUBE TP SCH ×2 (09:00→20:54)
[2016-12-18] MEDS: ASPIRIN 81 MG TAB.CHEW GT SCH (09:00)
[2016-12-18] MEDS: NEOMY SULF/BACITRAC ZN/POLY 15 GM TUBE TP SCH ×2 (09:00→20:55)
[2016-12-18] MEDS: TRILEPTAL GT SCH ×2 (09:00→20:54)
[2016-12-18] MEDS: ASCORBIC ACID 500 MG TABLET GT SCH (09:00)
[2016-12-18] MEDS: VITAMINS A AND D 56.7 GM TUBE TP SCH ×2 (09:00→20:55)
[2016-12-18] MEDS: CALCIUM CARBONATE 500 MG TAB.CHEW GT SCH ×2 (09:00→17:00)
--- NOTE | 2016-12-18 09:00 | NUR ---
Pt's sister brought copy of CT scan of abdomen and pelvis result on 12/16/16, result was from 11/17/15. Showed the copy to Dr. Montaño. He compared it to the recent result. No new order. Pt's sister requesting to meet with him. decontamination worker Christi will notify sister of when they can meet.
--- NOTE | 2016-12-18 12:30 | NUR ---
kitchen and counter worker called the resident's sister (Beckie Chu- [phone]) and informed her that Dr. Montaño was able to take a look at previous CT scan that was done last year. STEPHEN informed her that Dr. Montaño will be available in the early afternoon tomorrow December 19, 2016 and Beckie stated she can come between 1-2pm to meet with him. STEPHEN informed Dr. Montaño.
[2016-12-18] MEDS: GLYTROL 1,000 ML BAG GT PRN (12:46)
[2016-12-18 19:45] VITALS: BP 130/88
[2016-12-18] MEDS ORDERED: diphenhydrAMINE HCL ELIX 25 MG/10 ML UDC GT PRN (21:00)
[2016-12-18] MEDS: VANCOMYCIN 1 GM in IV D5W 250ml IV SCH (21:22)
[2016-12-19] MEDS: GLYTROL 1,000 ML BAG GT PRN (01:55)
[2016-12-19] MEDS: ALBUTEROL FS 2.5 MG/3 ML VIAL.NEB NEB SCH ×6 (04:04→23:41)
[2016-12-19] MEDS: MEROPENEM 500 MG in IV NS 0.9% 50 ML IV SCH ×3 (05:02→21:00)
[2016-12-19] MEDS: DEXILANT 30 MG GT SCH (05:27)
[2016-12-19] MEDS: BLOOD SUGAR DIAGNOSTIC 1 EACH STRIP IN SCH ×3 (05:27→17:29)
[2016-12-19] MEDS: INSULIN REGULAR, HUMAN 100 UNIT/ML 3 ML VIAL SQ PRN (05:27)
[2016-12-19 07:39] VITALS: BP 113/65
[2016-12-19 07:43] VITALS: BP 106/59
[2016-12-19] MEDS: VITAMINS A AND D 56.7 GM TUBE TP SCH ×2 (09:00→21:45)
[2016-12-19] MEDS: TRILEPTAL GT SCH ×2 (09:00→21:44)
[2016-12-19] MEDS: ASPIRIN 81 MG TAB.CHEW GT SCH (09:00)
[2016-12-19] MEDS: NEOMY SULF/BACITRAC ZN/POLY 15 GM TUBE TP SCH ×2 (09:00→21:44)
[2016-12-19] MEDS: PROSOURCE / PROSTAT (PYXIS) 30 ML UDC GT SCH ×2 (09:00→17:29)
[2016-12-19] MEDS: HYDROGEN PEROXIDE 480 ML BOTTLE TP SCH ×2 (09:00→21:44)
[2016-12-19] MEDS: ACIDOPHILUS/BULGARICUS 1 EACH TAB.CHEW PO SCH ×3 (09:00→17:29)
[2016-12-19] MEDS: Z GUARD REMEDY 4 OZ OINT TP SCH ×2 (09:00→21:44)
[2016-12-19] MEDS: MVI/MINERALS LIQUID (CEROVITE) GT SCH (09:00)
[2016-12-19] MEDS: ASCORBIC ACID 500 MG TABLET GT SCH (09:00)
[2016-12-19] MEDS: LEVETIRACETAM SOL (5 ML) 100 MG/ML UDC GT SCH ×2 (09:00→21:44)
[2016-12-19] MEDS: HYDROGEL DRESSING 90 GM TUBE TP SCH ×2 (09:00→21:44)
[2016-12-19] MEDS: CALCIUM CARBONATE 500 MG TAB.CHEW GT SCH ×2 (09:00→17:29)
--- NOTE | 2016-12-19 14:20 | NUR ---
Pt's sister Beckie spoke with Dr. Montaño at bedside and discussed about CT scan results of patient. NNO given at this time.
[2016-12-19 19:31] VITALS: BP 99/71
[2016-12-20] MEDS: BLOOD SUGAR DIAGNOSTIC 1 EACH STRIP IN SCH ×5 (00:32→23:29)
[2016-12-20] MEDS: INSULIN REGULAR, HUMAN 100 UNIT/ML 3 ML VIAL SQ PRN ×3 (00:33→23:29)
[2016-12-20] MEDS: GLYTROL 1,000 ML BAG GT PRN ×2 (02:25→18:16)
[2016-12-20] MEDS: ALBUTEROL FS 2.5 MG/3 ML VIAL.NEB NEB SCH ×5 (02:37→20:15)
[2016-12-20] MEDS: MEROPENEM 500 MG in IV NS 0.9% 50 ML IV SCH ×3 (05:00→21:00)
[2016-12-20] MEDS: DEXILANT 30 MG GT SCH (05:32)
[2016-12-20 07:40] VITALS: BP 112/62
[2016-12-20] MEDS: PROSOURCE / PROSTAT (PYXIS) 30 ML UDC GT SCH ×2 (09:00→17:00)
[2016-12-20] MEDS: LEVETIRACETAM SOL (5 ML) 100 MG/ML UDC GT SCH ×2 (09:00→21:40)
[2016-12-20] MEDS: Z GUARD REMEDY 4 OZ OINT TP SCH ×2 (09:00→21:40)
[2016-12-20] MEDS: ACIDOPHILUS/BULGARICUS 1 EACH TAB.CHEW PO SCH ×3 (09:00→17:00)
[2016-12-20] MEDS: MVI/MINERALS LIQUID (CEROVITE) GT SCH (09:00)
[2016-12-20] MEDS: CALCIUM CARBONATE 500 MG TAB.CHEW GT SCH ×2 (09:00→17:00)
[2016-12-20] MEDS: TRILEPTAL GT SCH ×2 (09:00→21:40)
[2016-12-20] MEDS: ASPIRIN 81 MG TAB.CHEW GT SCH (09:00)
[2016-12-20] MEDS: HYDROGEN PEROXIDE 480 ML BOTTLE TP SCH ×2 (09:00→21:40)
[2016-12-20] MEDS: HYDROGEL DRESSING 90 GM TUBE TP SCH ×2 (09:00→21:40)
[2016-12-20] MEDS: ASCORBIC ACID 500 MG TABLET GT SCH (09:00)
[2016-12-20] MEDS: VITAMINS A AND D 56.7 GM TUBE TP SCH ×2 (09:00→21:41)
[2016-12-20] MEDS: NEOMY SULF/BACITRAC ZN/POLY 15 GM TUBE TP SCH ×2 (09:00→21:40)
--- NOTE | 2016-12-20 10:20 | NUR ---
Seen and examined by Dr Montaño with no new order.
[2016-12-20 19:45] VITALS: BP 143/95
[2016-12-20] MEDS: CODEINE/PROMETHAZINE HCL 5 ML UDC GT PRN (21:46)
[2016-12-21] MEDS: ALBUTEROL FS 2.5 MG/3 ML VIAL.NEB NEB SCH ×7 (00:28→22:46)
[2016-12-21] MEDS: MEROPENEM 500 MG in IV NS 0.9% 50 ML IV SCH ×3 (05:00→21:00)
[2016-12-21] MEDS: DEXILANT 30 MG GT SCH (05:40)
[2016-12-21] MEDS: BLOOD SUGAR DIAGNOSTIC 1 EACH STRIP IN SCH ×4 (05:40→23:15)
[2016-12-21] MEDS: INSULIN REGULAR, HUMAN 100 UNIT/ML 3 ML VIAL SQ PRN (05:40)
--- NOTE | 2016-12-21 07:02 | NUR ---
Received female fariha pt on mechanical vent. Pt fariha is secure. Vent is plugged into a red outlet, alarms are audible, and BVM is at bedside. Addendum: 12/21/16 at 0702 by MARKIE PINO RT Amended: Links added.
[2016-12-21 07:46] VITALS: BP 98/60
[2016-12-21] MEDS: MVI/MINERALS LIQUID (CEROVITE) GT SCH (08:40)
[2016-12-21] MEDS: PROSOURCE / PROSTAT (PYXIS) 30 ML UDC GT SCH ×2 (08:40→16:28)
[2016-12-21] MEDS: ACIDOPHILUS/BULGARICUS 1 EACH TAB.CHEW PO SCH ×3 (08:40→16:28)
[2016-12-21] MEDS: ASPIRIN 81 MG TAB.CHEW GT SCH (08:40)
[2016-12-21] MEDS: CALCIUM CARBONATE 500 MG TAB.CHEW GT SCH ×2 (08:40→16:28)
[2016-12-21] MEDS: LEVETIRACETAM SOL (5 ML) 100 MG/ML UDC GT SCH ×2 (08:40→21:12)
[2016-12-21] MEDS: TRILEPTAL GT SCH ×2 (08:40→21:12)
[2016-12-21] MEDS: ASCORBIC ACID 500 MG TABLET GT SCH (08:40)
[2016-12-21] MEDS: HYDROGEN PEROXIDE 480 ML BOTTLE TP SCH ×2 (09:29→21:12)
[2016-12-21] MEDS: HYDROGEL DRESSING 90 GM TUBE TP SCH ×2 (09:29→21:12)
[2016-12-21] MEDS: NEOMY SULF/BACITRAC ZN/POLY 15 GM TUBE TP SCH ×2 (09:29→21:12)
[2016-12-21] MEDS: Z GUARD REMEDY 4 OZ OINT TP SCH ×2 (09:29→21:12)
[2016-12-21] MEDS: VITAMINS A AND D 56.7 GM TUBE TP SCH ×2 (09:30→21:12)
[2016-12-21 21:13] VITALS: BP 117/74
[2016-12-21] MEDS: GLYTROL 1,000 ML BAG GT PRN (21:13)
[2016-12-22] MEDS: ALBUTEROL FS 2.5 MG/3 ML VIAL.NEB NEB SCH ×6 (03:11→23:13)
[2016-12-22] MEDS: MEROPENEM 500 MG in IV NS 0.9% 50 ML IV SCH ×3 (05:00→21:00)
[2016-12-22] MEDS: DEXILANT 30 MG GT SCH (05:42)
[2016-12-22] MEDS: BLOOD SUGAR DIAGNOSTIC 1 EACH STRIP IN SCH ×3 (05:42→18:29)
[2016-12-22 07:42] VITALS: BP 117/59
[2016-12-22] MEDS: ASPIRIN 81 MG TAB.CHEW GT SCH (08:39)
[2016-12-22] MEDS: TRILEPTAL GT SCH ×2 (08:41→20:56)
[2016-12-22] MEDS: CALCIUM CARBONATE 500 MG TAB.CHEW GT SCH ×2 (08:41→17:16)
[2016-12-22] MEDS: NEOMY SULF/BACITRAC ZN/POLY 15 GM TUBE TP SCH ×2 (08:41→20:56)
[2016-12-22] MEDS: LEVETIRACETAM SOL (5 ML) 100 MG/ML UDC GT SCH ×2 (08:41→20:56)
[2016-12-22] MEDS: ASCORBIC ACID 500 MG TABLET GT SCH (08:41)
[2016-12-22] MEDS: HYDROGEN PEROXIDE 480 ML BOTTLE TP SCH ×2 (08:41→20:56)
[2016-12-22] MEDS: MVI/MINERALS LIQUID (CEROVITE) GT SCH (08:41)
[2016-12-22] MEDS: PROSOURCE / PROSTAT (PYXIS) 30 ML UDC GT SCH ×2 (08:41→17:16)
[2016-12-22] MEDS: ACIDOPHILUS/BULGARICUS 1 EACH TAB.CHEW PO SCH ×3 (08:41→17:16)
[2016-12-22] MEDS: HYDROGEL DRESSING 90 GM TUBE TP SCH ×2 (08:41→20:56)
[2016-12-22] MEDS: Z GUARD REMEDY 4 OZ OINT TP SCH ×2 (08:42→20:56)
[2016-12-22] MEDS: VITAMINS A AND D 56.7 GM TUBE TP SCH ×2 (08:42→20:56)
[2016-12-22] MEDS: INSULIN REGULAR, HUMAN 100 UNIT/ML 3 ML VIAL SQ PRN ×2 (12:11→18:29)
[2016-12-22 14:28] LABS: BASOPHILS % (AUTO) 0.1 % (0.0-2.0); EOSINOPHILS # (AUTO) 0.7 /CMM (0.0-0.7); HEMATOCRIT 26 % (33-45); HEMOGLOBIN 8.8 g/dL (11.5-14.8); LYMPHOCYTES # (AUTO) 2.6 /CMM (0.8-4.8); LYMPHOCYTES % (AUTO) 24.6 % (20.0-44.0); MEAN CORPUSCULAR HEMOGLOBIN 33 PG (26.0-33.0); MEAN CORPUSCULAR HGB CONC 34 g/dl (31.0-36.0); MEAN CORPUSCULAR VOLUME 97 fL (82-100); MONOCYTES # (AUTO) 0.7 /CMM (0.1-1.30); MONOCYTES % (AUTO) 6.4 % (2.0-12.0); NEUTROPHILS # (AUTO) 6.5 /CMM (1.8-8.9); NEUTROPHILS % (AUTO) 61.9 % (43.0-81.0); PLATELET COUNT (AUTO) 491 /CMM (150-450); RED BLOOD CELL COUNT(AUTO) 2.71 MIL/uL (4.0-5.2); WHITE BLOOD COUNT (AUTO) 10.4 K/uL (4.3-11.0)
--- NOTE | 2016-12-22 18:56 | NUR ---
Seen by [facility] TEACHER Anna Vargas. Relayed CBC result to her. No new order.
[2016-12-22 19:31] VITALS: BP 108/69
[2016-12-22 19:45] VITALS: BP 120/65
[2016-12-23] MEDS: BLOOD SUGAR DIAGNOSTIC 1 EACH STRIP IN SCH ×5 (00:24→23:36)
[2016-12-23] MEDS: ALBUTEROL FS 2.5 MG/3 ML VIAL.NEB NEB SCH ×6 (03:30→23:10)
[2016-12-23] MEDS: MEROPENEM 500 MG in IV NS 0.9% 50 ML IV SCH ×3 (05:00→21:00)
[2016-12-23] MEDS: DEXILANT 30 MG GT SCH (05:52)
[2016-12-23 07:50] VITALS: BP 131/67
[2016-12-23] MEDS: TRILEPTAL GT SCH ×2 (09:13→21:06)
[2016-12-23] MEDS: ASPIRIN 81 MG TAB.CHEW GT SCH (09:13)
[2016-12-23] MEDS: LEVETIRACETAM SOL (5 ML) 100 MG/ML UDC GT SCH ×2 (09:14→21:06)
[2016-12-23] MEDS: HYDROGEN PEROXIDE 480 ML BOTTLE TP SCH ×2 (09:14→21:06)
[2016-12-23] MEDS: NEOMY SULF/BACITRAC ZN/POLY 15 GM TUBE TP SCH ×2 (09:14→21:06)
[2016-12-23] MEDS: ASCORBIC ACID 500 MG TABLET GT SCH (09:14)
[2016-12-23] MEDS: ACIDOPHILUS/BULGARICUS 1 EACH TAB.CHEW PO SCH ×3 (09:14→17:08)
[2016-12-23] MEDS: CALCIUM CARBONATE 500 MG TAB.CHEW GT SCH ×2 (09:14→17:08)
[2016-12-23] MEDS: MVI/MINERALS LIQUID (CEROVITE) GT SCH (09:14)
[2016-12-23] MEDS: PROSOURCE / PROSTAT (PYXIS) 30 ML UDC GT SCH ×2 (09:14→17:08)
[2016-12-23] MEDS: Z GUARD REMEDY 4 OZ OINT TP SCH ×2 (09:14→21:06)
[2016-12-23] MEDS: VITAMINS A AND D 56.7 GM TUBE TP SCH ×2 (09:14→21:07)
[2016-12-23] MEDS: HYDROGEL DRESSING 90 GM TUBE TP SCH ×2 (09:14→21:06)
[2016-12-23] MEDS: INSULIN REGULAR, HUMAN 100 UNIT/ML 3 ML VIAL SQ PRN ×2 (12:14→18:23)
--- NOTE | 2016-12-23 18:17 | NUR ---
Pt had a seizure lasting 15 seconds. Ativan 1 mg via GT was given as ordered. BP 120/65 HR 105 T 98.7 R 20 O2 sat 100%. No injuries were noted. Pt awake and was making eye contact after the seizure. Notified Dr. Hathaway and received order to check Keppra and Trileptal levels. Notified pt's sister Beckie.
[2016-12-23 20:00] VITALS: BP 119/71
[2016-12-24] MEDS: ALBUTEROL FS 2.5 MG/3 ML VIAL.NEB NEB SCH ×6 (02:32→23:25)
[2016-12-24] MEDS: MEROPENEM 500 MG in IV NS 0.9% 50 ML IV SCH ×3 (05:00→21:32)
[2016-12-24] MEDS: DEXILANT 30 MG GT SCH (05:59)
[2016-12-24] MEDS: BLOOD SUGAR DIAGNOSTIC 1 EACH STRIP IN SCH ×3 (05:59→18:20)
[2016-12-24 08:19] VITALS: BP 122/72
[2016-12-24] MEDS: PROSOURCE / PROSTAT (PYXIS) 30 ML UDC GT SCH ×2 (09:00→17:00)
[2016-12-24] MEDS: CALCIUM CARBONATE 500 MG TAB.CHEW GT SCH ×2 (09:00→17:00)
[2016-12-24] MEDS: TRILEPTAL GT SCH ×2 (09:00→21:29)
[2016-12-24] MEDS: LEVETIRACETAM SOL (5 ML) 100 MG/ML UDC GT SCH ×2 (09:00→21:29)
[2016-12-24] MEDS: ASCORBIC ACID 500 MG TABLET GT SCH (09:00)
[2016-12-24] MEDS: ASPIRIN 81 MG TAB.CHEW GT SCH (09:00)
[2016-12-24] MEDS: ACIDOPHILUS/BULGARICUS 1 EACH TAB.CHEW PO SCH ×3 (09:00→17:00)
[2016-12-24] MEDS: MVI/MINERALS LIQUID (CEROVITE) GT SCH (09:00)
[2016-12-24] MEDS: INSULIN REGULAR, HUMAN 100 UNIT/ML 3 ML VIAL SQ PRN ×2 (11:32→18:20)
[2016-12-24] MEDS: HYDROGEN PEROXIDE 480 ML BOTTLE TP SCH ×2 (12:48→21:33)
[2016-12-24] MEDS: HYDROGEL DRESSING 90 GM TUBE TP SCH ×2 (12:48→21:29)
[2016-12-24] MEDS: NEOMY SULF/BACITRAC ZN/POLY 15 GM TUBE TP SCH ×2 (12:48→21:33)
[2016-12-24] MEDS: Z GUARD REMEDY 4 OZ OINT TP SCH ×2 (12:48→21:33)
[2016-12-24] MEDS: VITAMINS A AND D 56.7 GM TUBE TP SCH ×2 (12:49→21:33)
--- NOTE | 2016-12-24 15:50 | NUR ---
Resident's sister spoke to the SW. She stated that the resident's toe nails are long and SW will send referral to Dr. Morillo for toe nail cutting. SW was also informed that her finger nails are very long. STEPHEN asked charge nurse Zohaib if GENERAL OFFICE ASSOCIATE's can cut them and he stated he will ask them. SW will follow up. SW to fax referral to the office of Dr. Morillo (nurse midwife) for follow up appt.
[2016-12-24] MEDS: GLYTROL 1,000 ML BAG GT PRN (18:53)
[2016-12-24 20:01] VITALS: BP 126/73
[2016-12-25] MEDS: BLOOD SUGAR DIAGNOSTIC 1 EACH STRIP IN SCH ×4 (00:34→17:44)
[2016-12-25] MEDS: INSULIN REGULAR, HUMAN 100 UNIT/ML 3 ML VIAL SQ PRN ×2 (00:35→06:04)
[2016-12-25] MEDS: ALBUTEROL FS 2.5 MG/3 ML VIAL.NEB NEB SCH ×6 (04:08→23:44)
[2016-12-25] MEDS: MEROPENEM 500 MG in IV NS 0.9% 50 ML IV SCH (05:18)
[2016-12-25] MEDS: DEXILANT 30 MG GT SCH (06:04)
[2016-12-25] MEDS: MAGNESIUM HYDROXIDE 30 ML UDC GT PRN (06:14)
[2016-12-25 07:39] VITALS: BP 117/70
[2016-12-25] MEDS ORDERED: BISACODYL SUPP (10 MG) 10 MG/SUPP.RECT SUPP.RECT RC PRN (08:30)
[2016-12-25] MEDS: MVI/MINERALS LIQUID (CEROVITE) GT SCH (08:41)
[2016-12-25] MEDS: HYDROGEN PEROXIDE 480 ML BOTTLE TP SCH ×2 (08:41→21:20)
[2016-12-25] MEDS: ACIDOPHILUS/BULGARICUS 1 EACH TAB.CHEW PO SCH ×3 (08:41→17:44)
[2016-12-25] MEDS: ASCORBIC ACID 500 MG TABLET GT SCH (08:41)
[2016-12-25] MEDS: HYDROGEL DRESSING 90 GM TUBE TP SCH ×2 (08:41→21:20)
[2016-12-25] MEDS: CALCIUM CARBONATE 500 MG TAB.CHEW GT SCH ×2 (08:41→17:44)
[2016-12-25] MEDS: PROSOURCE / PROSTAT (PYXIS) 30 ML UDC GT SCH ×2 (08:41→17:44)
[2016-12-25] MEDS: TRILEPTAL GT SCH ×2 (08:41→21:20)
[2016-12-25] MEDS: ASPIRIN 81 MG TAB.CHEW GT SCH (08:41)
[2016-12-25] MEDS: NEOMY SULF/BACITRAC ZN/POLY 15 GM TUBE TP SCH ×2 (08:42→21:20)
[2016-12-25] MEDS: Z GUARD REMEDY 4 OZ OINT TP SCH ×2 (08:42→21:21)
[2016-12-25] MEDS: VITAMINS A AND D 56.7 GM TUBE TP SCH ×2 (08:42→21:21)
[2016-12-25] MEDS ORDERED: LEVETIRACETAM SOL (5 ML) 100 MG/ML UDC GT SCH (09:00)
--- NOTE | 2016-12-25 10:59 | NUR ---
Penelope faxed podiatry referral to Dr. Morillo (surveillance analyst- [address] [place] [address] , FAX: [phone]) for follow up appt.
[2016-12-25] MEDS ORDERED: ACETAMINOPHEN 650 MG/20 ML UDC- FOR SA PATIENTS ONLY GT PRN (15:00)
[2016-12-25] MEDS ORDERED: DEXTROSE 50%-WATER 50 ML DISP.SYRIN IV PRN (15:30)
[2016-12-25 19:55] VITALS: BP 139/65
[2016-12-25] MEDS: LEVETIRACETAM SOL (5 ML) 100 MG/ML UDC GT SCH (21:20)
[2016-12-26] MEDS: INSULIN REGULAR, HUMAN 100 UNIT/ML 3 ML VIAL SQ PRN ×3 (00:04→23:39)
[2016-12-26] MEDS: BLOOD SUGAR DIAGNOSTIC 1 EACH STRIP IN SCH ×5 (00:04→23:39)
[2016-12-26] MEDS: ALBUTEROL FS 2.5 MG/3 ML VIAL.NEB NEB SCH ×6 (03:33→23:50)
[2016-12-26] MEDS: DEXILANT 30 MG GT SCH (05:21)
[2016-12-26] MEDS: BISACODYL SUPP (10 MG) 10 MG/SUPP.RECT SUPP.RECT RC PRN (06:41)
[2016-12-26 07:00] VITALS: BP 113/62
[2016-12-26 07:12] LABS: LEVETIRACETAM 42.5 ug/mL (10.0-40.0)
[2016-12-26] MEDS: PROSOURCE / PROSTAT (PYXIS) 30 ML UDC GT SCH ×2 (09:00→17:00)
[2016-12-26] MEDS: ACIDOPHILUS/BULGARICUS 1 EACH TAB.CHEW PO SCH ×3 (09:00→17:00)
[2016-12-26] MEDS: HYDROGEN PEROXIDE 480 ML BOTTLE TP SCH ×2 (09:00→21:03)
[2016-12-26] MEDS: LEVETIRACETAM SOL (5 ML) 100 MG/ML UDC GT SCH ×2 (09:00→21:03)
[2016-12-26] MEDS: ASPIRIN 81 MG TAB.CHEW GT SCH (09:00)
[2016-12-26] MEDS: ASCORBIC ACID 500 MG TABLET GT SCH (09:00)
[2016-12-26] MEDS: MVI/MINERALS LIQUID (CEROVITE) GT SCH (09:00)
[2016-12-26] MEDS: Z GUARD REMEDY 4 OZ OINT TP SCH ×2 (09:00→21:03)
[2016-12-26] MEDS: HYDROGEL DRESSING 90 GM TUBE TP SCH ×2 (09:00→21:03)
[2016-12-26] MEDS: TRILEPTAL GT SCH ×2 (09:00→21:03)
[2016-12-26] MEDS: VITAMINS A AND D 56.7 GM TUBE TP SCH ×2 (09:00→21:03)
[2016-12-26] MEDS: NEOMY SULF/BACITRAC ZN/POLY 15 GM TUBE TP SCH ×2 (09:00→21:03)
[2016-12-26] MEDS: CALCIUM CARBONATE 500 MG TAB.CHEW GT SCH ×2 (09:00→17:00)
[2016-12-26 20:46] VITALS: BP 110/93
[2016-12-27] MEDS: ALBUTEROL FS 2.5 MG/3 ML VIAL.NEB NEB SCH ×6 (03:40→22:59)
[2016-12-27] MEDS: BLOOD SUGAR DIAGNOSTIC 1 EACH STRIP IN SCH ×3 (05:45→17:27)
[2016-12-27] MEDS: DEXILANT 30 MG GT SCH (05:45)
[2016-12-27] MEDS: INSULIN REGULAR, HUMAN 100 UNIT/ML 3 ML VIAL SQ PRN ×2 (05:46→17:27)
[2016-12-27] MEDS: GLYTROL 1,000 ML BAG GT PRN (06:48)
[2016-12-27 07:57] VITALS: BP 120/67
[2016-12-27] MEDS: HYDROGEL DRESSING 90 GM TUBE TP SCH ×2 (08:37→21:22)
[2016-12-27] MEDS: PROSOURCE / PROSTAT (PYXIS) 30 ML UDC GT SCH ×2 (08:37→16:21)
[2016-12-27] MEDS: ACIDOPHILUS/BULGARICUS 1 EACH TAB.CHEW PO SCH ×3 (08:37→16:21)
[2016-12-27] MEDS: ASPIRIN 81 MG TAB.CHEW GT SCH (08:37)
[2016-12-27] MEDS: ASCORBIC ACID 500 MG TABLET GT SCH (08:37)
[2016-12-27] MEDS: CALCIUM CARBONATE 500 MG TAB.CHEW GT SCH ×2 (08:37→16:21)
[2016-12-27] MEDS: MVI/MINERALS LIQUID (CEROVITE) GT SCH (08:37)
[2016-12-27] MEDS: TRILEPTAL GT SCH ×2 (08:37→21:21)
[2016-12-27] MEDS: LEVETIRACETAM SOL (5 ML) 100 MG/ML UDC GT SCH ×2 (08:37→21:21)
[2016-12-27] MEDS: VITAMINS A AND D 56.7 GM TUBE TP SCH ×2 (08:38→21:22)
[2016-12-27] MEDS: Z GUARD REMEDY 4 OZ OINT TP SCH ×2 (08:38→21:22)
[2016-12-27] MEDS: NEOMY SULF/BACITRAC ZN/POLY 15 GM TUBE TP SCH ×2 (08:38→21:22)
[2016-12-27] MEDS: HYDROGEN PEROXIDE 480 ML BOTTLE TP SCH ×2 (08:38→21:22)
--- NOTE | 2016-12-27 16:00 | NUR ---
Patient awake in bed, no respiratory distress , dependent on vent. Had episode of seizure activity few days ago. MD aware, labs done. Trileptal 23, Keppra 42.5, currently on keppra via GT. No seizure activities noted at this time. Closely monitored.
[2016-12-27 20:03] VITALS: BP 118/72
[2016-12-28] MEDS: BLOOD SUGAR DIAGNOSTIC 1 EACH STRIP IN SCH ×4 (00:10→18:00)
[2016-12-28] MEDS: GLYTROL 1,000 ML BAG GT PRN (00:11)
[2016-12-28] MEDS: INSULIN REGULAR, HUMAN 100 UNIT/ML 3 ML VIAL SQ PRN ×3 (00:13→12:56)
[2016-12-28] MEDS: ALBUTEROL FS 2.5 MG/3 ML VIAL.NEB NEB SCH ×6 (03:30→23:31)
[2016-12-28] MEDS: DEXILANT 30 MG GT SCH (05:37)
[2016-12-28 07:40] VITALS: BP 101/51
[2016-12-28] MEDS: TRILEPTAL GT SCH ×2 (08:31→20:15)
[2016-12-28] MEDS: MVI/MINERALS LIQUID (CEROVITE) GT SCH (08:31)
[2016-12-28] MEDS: LEVETIRACETAM SOL (5 ML) 100 MG/ML UDC GT SCH ×2 (08:31→20:15)
[2016-12-28] MEDS: ASCORBIC ACID 500 MG TABLET GT SCH (08:31)
[2016-12-28] MEDS: ACIDOPHILUS/BULGARICUS 1 EACH TAB.CHEW PO SCH ×3 (08:31→17:14)
[2016-12-28] MEDS: CALCIUM CARBONATE 500 MG TAB.CHEW GT SCH ×2 (08:31→17:14)
[2016-12-28] MEDS: ASPIRIN 81 MG TAB.CHEW GT SCH (08:31)
[2016-12-28] MEDS: PROSOURCE / PROSTAT (PYXIS) 30 ML UDC GT SCH ×2 (08:31→17:14)
[2016-12-28] MEDS: HYDROGEL DRESSING 90 GM TUBE TP SCH ×2 (08:32→20:15)
[2016-12-28] MEDS: VITAMINS A AND D 56.7 GM TUBE TP SCH ×2 (09:00→20:16)
[2016-12-28] MEDS: Z GUARD REMEDY 4 OZ OINT TP SCH ×2 (09:00→20:15)
[2016-12-28] MEDS: NEOMY SULF/BACITRAC ZN/POLY 15 GM TUBE TP SCH ×2 (09:00→20:15)
[2016-12-28] MEDS: HYDROGEN PEROXIDE 480 ML BOTTLE TP SCH ×2 (09:00→20:15)
[2016-12-28 19:53] VITALS: BP 122/71
[2016-12-29] MEDS: BLOOD SUGAR DIAGNOSTIC 1 EACH STRIP IN SCH ×4 (00:05→17:38)
[2016-12-29] MEDS: ALBUTEROL FS 2.5 MG/3 ML VIAL.NEB NEB SCH ×6 (04:08→23:35)
[2016-12-29] MEDS: DEXILANT 30 MG GT SCH (05:08)
[2016-12-29] MEDS: INSULIN REGULAR, HUMAN 100 UNIT/ML 3 ML VIAL SQ PRN ×3 (07:23→17:39)
[2016-12-29 08:02] VITALS: BP 116/81
[2016-12-29] MEDS: MVI/MINERALS LIQUID (CEROVITE) GT SCH (09:56)
[2016-12-29] MEDS: TRILEPTAL GT SCH ×2 (09:56→20:13)
[2016-12-29] MEDS: PROSOURCE / PROSTAT (PYXIS) 30 ML UDC GT SCH ×2 (09:56→16:45)
[2016-12-29] MEDS: ASPIRIN 81 MG TAB.CHEW GT SCH (09:56)
[2016-12-29] MEDS: LEVETIRACETAM SOL (5 ML) 100 MG/ML UDC GT SCH ×2 (09:56→20:13)
[2016-12-29] MEDS: CALCIUM CARBONATE 500 MG TAB.CHEW GT SCH ×2 (09:56→16:45)
[2016-12-29] MEDS: ACIDOPHILUS/BULGARICUS 1 EACH TAB.CHEW PO SCH ×3 (09:56→16:45)
[2016-12-29] MEDS: ASCORBIC ACID 500 MG TABLET GT SCH (09:56)
[2016-12-29] MEDS: Z GUARD REMEDY 4 OZ OINT TP SCH ×2 (09:57→20:13)
[2016-12-29] MEDS: HYDROGEN PEROXIDE 480 ML BOTTLE TP SCH ×2 (09:57→20:13)
[2016-12-29] MEDS: NEOMY SULF/BACITRAC ZN/POLY 15 GM TUBE TP SCH ×2 (09:57→20:13)
[2016-12-29] MEDS: VITAMINS A AND D 56.7 GM TUBE TP SCH ×2 (09:57→20:13)
[2016-12-29] MEDS: HYDROGEL DRESSING 90 GM TUBE TP SCH ×2 (09:57→20:13)
[2016-12-29] MEDS: GLYTROL 1,000 ML BAG GT PRN (16:47)
[2016-12-29 19:46] VITALS: BP 127/75
[2016-12-30] MEDS: BLOOD SUGAR DIAGNOSTIC 1 EACH STRIP IN SCH ×5 (00:10→23:49)
[2016-12-30] MEDS: ALBUTEROL FS 2.5 MG/3 ML VIAL.NEB NEB SCH ×6 (03:06→22:38)
[2016-12-30] MEDS: DEXILANT 30 MG GT SCH (05:13)
[2016-12-30 08:07] VITALS: BP 134/77
[2016-12-30] MEDS: ACIDOPHILUS/BULGARICUS 1 EACH TAB.CHEW PO SCH ×3 (09:45→17:00)
[2016-12-30] MEDS: ASCORBIC ACID 500 MG TABLET GT SCH (09:45)
[2016-12-30] MEDS: TRILEPTAL GT SCH ×2 (09:45→20:21)
[2016-12-30] MEDS: ASPIRIN 81 MG TAB.CHEW GT SCH (09:45)
[2016-12-30] MEDS: MVI/MINERALS LIQUID (CEROVITE) GT SCH (09:45)
[2016-12-30] MEDS: CALCIUM CARBONATE 500 MG TAB.CHEW GT SCH ×2 (09:45→17:00)
[2016-12-30] MEDS: HYDROGEN PEROXIDE 480 ML BOTTLE TP SCH ×2 (09:45→20:21)
[2016-12-30] MEDS: HYDROGEL DRESSING 90 GM TUBE TP SCH ×2 (09:45→20:21)
[2016-12-30] MEDS: PROSOURCE / PROSTAT (PYXIS) 30 ML UDC GT SCH ×2 (09:45→17:00)
[2016-12-30] MEDS: LEVETIRACETAM SOL (5 ML) 100 MG/ML UDC GT SCH ×2 (09:45→20:21)
[2016-12-30] MEDS: Z GUARD REMEDY 4 OZ OINT TP SCH ×2 (09:46→20:21)
[2016-12-30] MEDS: NEOMY SULF/BACITRAC ZN/POLY 15 GM TUBE TP SCH (09:46)
[2016-12-30] MEDS: VITAMINS A AND D 56.7 GM TUBE TP SCH ×2 (09:46→20:21)
[2016-12-30] MEDS: GLYTROL 1,000 ML BAG GT PRN (11:32)
[2016-12-30] MEDS: INSULIN REGULAR, HUMAN 100 UNIT/ML 3 ML VIAL SQ PRN ×3 (12:41→19:07)
--- NOTE | 2016-12-30 14:21 | NUR ---
Called office of vice president of software development Dr. Morillo (vice president of software development- [address] [place] [address] , FAX: [phone]) . was notified that he has been sick the past two days. SW will follow up tomorrow.
--- NOTE | 2016-12-30 16:05 | NUR ---
Late entry for 12/29/16 Levetiracetam 42.5 Oxcarbazepine 23 seen by NAN Vargas. No recent episode of seizure noted. No new order.
--- NOTE | 2016-12-30 18:00 | NUR ---
Seen by Dr. Montaño. Relayed Keppra and Trileptal levels to Dr. Montaño. No new order.
[2016-12-30 19:44] VITALS: BP 123/63
[2016-12-31] MEDS: ALBUTEROL FS 2.5 MG/3 ML VIAL.NEB NEB SCH ×6 (03:12→23:41)
[2016-12-31] MEDS: DEXILANT 30 MG GT SCH (05:22)
[2016-12-31] MEDS: GLYTROL 1,000 ML BAG GT PRN ×2 (05:22→21:07)
[2016-12-31] MEDS: BLOOD SUGAR DIAGNOSTIC 1 EACH STRIP IN SCH ×4 (05:22→23:23)
[2016-12-31 07:41] VITALS: BP 113/86
[2016-12-31] MEDS: CALCIUM CARBONATE 500 MG TAB.CHEW GT SCH ×2 (09:37→17:29)
[2016-12-31] MEDS: PROSOURCE / PROSTAT (PYXIS) 30 ML UDC GT SCH ×2 (09:37→17:29)
[2016-12-31] MEDS: ASCORBIC ACID 500 MG TABLET GT SCH (09:37)
[2016-12-31] MEDS: ACIDOPHILUS/BULGARICUS 1 EACH TAB.CHEW PO SCH ×3 (09:37→17:29)
[2016-12-31] MEDS: HYDROGEN PEROXIDE 480 ML BOTTLE TP SCH ×2 (09:37→21:05)
[2016-12-31] MEDS: ASPIRIN 81 MG TAB.CHEW GT SCH (09:37)
[2016-12-31] MEDS: MVI/MINERALS LIQUID (CEROVITE) GT SCH (09:37)
[2016-12-31] MEDS: HYDROGEL DRESSING 90 GM TUBE TP SCH ×2 (09:37→21:05)
[2016-12-31] MEDS: LEVETIRACETAM SOL (5 ML) 100 MG/ML UDC GT SCH ×2 (09:37→21:05)
[2016-12-31] MEDS: Z GUARD REMEDY 4 OZ OINT TP SCH ×2 (09:37→21:05)
[2016-12-31] MEDS: TRILEPTAL GT SCH ×2 (09:37→21:05)
[2016-12-31] MEDS: VITAMINS A AND D 56.7 GM TUBE TP SCH ×2 (09:38→21:05)
--- NOTE | 2016-12-31 19:29 | NUR ---
RT SHARMILAN TX HELD AT THIS TIME. PT PULSE @ 120+ RN MADE AWARE.
[2016-12-31 19:50] VITALS: BP 98/65
[2016-12-31] MEDS: diphenhydrAMINE HCL ELIX 25 MG/10 ML UDC GT PRN (21:39)
[2016-12-31] MEDS: INSULIN REGULAR, HUMAN 100 UNIT/ML 3 ML VIAL SQ PRN (23:23)
[2017-01-01] MEDS: ALBUTEROL FS 2.5 MG/3 ML VIAL.NEB NEB SCH ×6 (04:16→23:27)
[2017-01-01] MEDS: INSULIN REGULAR, HUMAN 100 UNIT/ML 3 ML VIAL SQ PRN (05:36)
[2017-01-01] MEDS: BLOOD SUGAR DIAGNOSTIC 1 EACH STRIP IN SCH ×3 (05:36→17:50)
[2017-01-01] MEDS: DEXILANT 30 MG GT SCH (05:36)
[2017-01-01 07:14] VITALS: BP 119/76
[2017-01-01] MEDS: HYDROGEL DRESSING 90 GM TUBE TP SCH ×2 (09:00→21:20)
[2017-01-01] MEDS: Z GUARD REMEDY 4 OZ OINT TP SCH ×2 (09:00→21:21)
[2017-01-01] MEDS: ACIDOPHILUS/BULGARICUS 1 EACH TAB.CHEW PO SCH ×3 (09:00→17:50)
[2017-01-01] MEDS: CALCIUM CARBONATE 500 MG TAB.CHEW GT SCH ×2 (09:00→17:50)
[2017-01-01] MEDS: ASCORBIC ACID 500 MG TABLET GT SCH (09:00)
[2017-01-01] MEDS: HYDROGEN PEROXIDE 480 ML BOTTLE TP SCH ×2 (09:00→21:20)
[2017-01-01] MEDS: ASPIRIN 81 MG TAB.CHEW GT SCH (09:00)
[2017-01-01] MEDS: PROSOURCE / PROSTAT (PYXIS) 30 ML UDC GT SCH ×2 (09:00→17:50)
[2017-01-01] MEDS: TRILEPTAL GT SCH ×2 (09:00→20:52)
[2017-01-01] MEDS: LEVETIRACETAM SOL (5 ML) 100 MG/ML UDC GT SCH ×2 (09:00→20:52)
[2017-01-01] MEDS: MVI/MINERALS LIQUID (CEROVITE) GT SCH (09:00)
[2017-01-01] MEDS: VITAMINS A AND D 56.7 GM TUBE TP SCH ×2 (09:00→21:21)
[2017-01-01] MEDS: GLYTROL 1,000 ML BAG GT PRN (17:50)
[2017-01-01 20:06] VITALS: BP 130/70
[2017-01-01] MEDS: MAGNESIUM HYDROXIDE 30 ML UDC GT PRN (20:53)
[2017-01-01] MEDS: diphenhydrAMINE HCL ELIX 25 MG/10 ML UDC GT PRN (20:53)
[2017-01-02] MEDS: BLOOD SUGAR DIAGNOSTIC 1 EACH STRIP IN SCH ×4 (00:11→17:51)
[2017-01-02] MEDS: INSULIN REGULAR, HUMAN 100 UNIT/ML 3 ML VIAL SQ PRN ×3 (00:11→05:37)
[2017-01-02] MEDS: ALBUTEROL FS 2.5 MG/3 ML VIAL.NEB NEB SCH ×6 (03:52→23:11)
[2017-01-02] MEDS: DEXILANT 30 MG GT SCH (05:37)
[2017-01-02] MEDS: GLYTROL 1,000 ML BAG GT PRN (05:44)
[2017-01-02 08:00] VITALS: BP 121/68
[2017-01-02] MEDS: ASCORBIC ACID 500 MG TABLET GT SCH (09:00)
[2017-01-02] MEDS: CALCIUM CARBONATE 500 MG TAB.CHEW GT SCH ×2 (09:00→17:51)
[2017-01-02] MEDS: ACIDOPHILUS/BULGARICUS 1 EACH TAB.CHEW PO SCH ×3 (09:00→17:51)
[2017-01-02] MEDS: TRILEPTAL GT SCH ×2 (09:00→21:15)
[2017-01-02] MEDS: ASPIRIN 81 MG TAB.CHEW GT SCH (09:00)
[2017-01-02] MEDS: LEVETIRACETAM SOL (5 ML) 100 MG/ML UDC GT SCH ×2 (09:00→21:15)
[2017-01-02] MEDS: VITAMINS A AND D 56.7 GM TUBE TP SCH ×2 (09:00→21:19)
[2017-01-02] MEDS: MVI/MINERALS LIQUID (CEROVITE) GT SCH (09:00)
[2017-01-02] MEDS: HYDROGEN PEROXIDE 480 ML BOTTLE TP SCH ×2 (09:00→21:18)
[2017-01-02] MEDS: Z GUARD REMEDY 4 OZ OINT TP SCH ×2 (09:00→21:19)
[2017-01-02] MEDS: HYDROGEL DRESSING 90 GM TUBE TP SCH ×2 (09:00→21:18)
[2017-01-02] MEDS: PROSOURCE / PROSTAT (PYXIS) 30 ML UDC GT SCH ×2 (09:00→17:51)
--- NOTE | 2017-01-02 10:52 | NUR ---
RT PATIENT RECEIVED TRACHED ON [facility] VENT WITH SETTINGS PER MD ORDER. PUBLIC SPEAKING COACH DONE. BILAT BREATH SOUNDS ON AUSCULTATION. VENT PLUGGED INTO RED OUTLET. SPARE TRACH AND AMBU BAG AT HEAD OF BED. BREATHING TX'S GIVEN, NO ADVERSE EFFECTS OBSERVED. SUCTIONED PRN. NO SIGNS OF DISTRESS NOTED AT THIS TIME. WILL CONTINUE TO MONITOR THE PATIENT FOR ANY CHANGES. Addendum: 01/02/17 at 1134 by YAMIL MARTINEZ RT Amended: Links added.
--- NOTE | 2017-01-02 13:50 | NUR ---
IDT meeting held, resident's sister attended the meeting. Resident's sister concern about patient's skin such as rash like escalante. Reviewed current orders and treatment including BS. BS ranges from 88-154 for the month of December. Current order of FSBS Q6 changed to Q [address] Felix is aware of the preliminary urine cx. result: gram negative rods > 100,000 cfu/ml. with new order to do UA and CBC and will treat based on the UA and CBC result. Above orders were discussed in the meeting and order was given in the presence of patient's sister. Family also made aware that in the past, PMV was tried by RT but patient noted to be coughing a lot while on PMV, O2 sat remain above 95% during the trial. Sister verbalized understanding that she may not tolerate the use of PMV as explained by Dr. Felix but she would like to try to see if patient can verbalize some words as she is observed opening her mouth mumbling.
--- NOTE | 2017-01-02 14:57 | NUR ---
Sister concerned about rashes (or rash like escalante) on resident's skin. SW notified Dr. Dhillon who stated that he can come and see the resident on Thursday since he is not in today. Charge nurse informed.
[2017-01-02] MEDS ORDERED: INSULIN REGULAR, HUMAN 100 UNIT/ML 3 ML VIAL SQ PRN (16:11)
[2017-01-02 18:50] LABS: BASOPHILS % (AUTO) 0.4 % (0.0-2.0); EOSINOPHILS % (AUTO) 10.5 % (0.0-6.0); HEMATOCRIT 27 % (33-45); HEMOGLOBIN 9.2 g/dL (11.5-14.8); LYMPHOCYTES # (AUTO) 1.7 /CMM (0.8-4.8); LYMPHOCYTES % (AUTO) 17.9 % (20.0-44.0); MEAN CORPUSCULAR HEMOGLOBIN 34 PG (26.0-33.0); MEAN CORPUSCULAR HGB CONC 35 g/dl (31.0-36.0); MEAN CORPUSCULAR VOLUME 98 fL (82-100); MONOCYTES # (AUTO) 0.8 /CMM (0.1-1.30); NEUTROPHILS % (AUTO) 63.2 % (43.0-81.0); PLATELET COUNT (AUTO) 371 /CMM (150-450); RDW COEFFICIENT OF VARIATION 15.7 (11.5-15.0); RED BLOOD CELL COUNT(AUTO) 2.73 MIL/uL (4.0-5.2); WHITE BLOOD COUNT (AUTO) 9.5 K/uL (4.3-11.0)
[2017-01-02 19:20] VITALS: BP 111/63
[2017-01-02] MEDS ORDERED: BLOOD SUGAR DIAGNOSTIC 1 EACH STRIP IN SCH (21:00)
[2017-01-02 21:22] LABS: APPEARANCE,URINE CLOUDY (CLEAR); BILIRUBIN,URINE NEGATIVE (NEGATIVE); BLOOD, URINE 1+ Ery/uL (NEGATIVE); COLOR,URINE YELLOW (YELLOW); KETONES,URINE NEGATIVE (NEGATIVE); LEUKOCYTE ESTERASE ,URINE 3+ (NEGATIVE); NITRITE, URINE NEGATIVE (NEGATIVE); PROTEIN,URINE 1+ mg/dl (NEGATIVE); UGLUCOSE NEGATIVE (NEGATIVE); UROBILINOGEN,URINE 0.2 EU/dL (0.2)
[2017-01-02 21:27] LABS: BACTERIA,URINE Many /HPF (None Seen); SQUAMOUS EPITHELIAL CELL,UR Many /HPF (None Seen); WBC,URINE TOO NUMEROUS TO COUN /HPF (0-3)
[2017-01-03] MEDS: GLYTROL 1,000 ML BAG GT PRN ×2 (00:35→17:33)
[2017-01-03] MEDS: ALBUTEROL FS 2.5 MG/3 ML VIAL.NEB NEB SCH ×6 (03:30→23:35)
[2017-01-03] MEDS: DEXILANT 30 MG GT SCH (05:27)
[2017-01-03] MEDS ORDERED: BLOOD SUGAR DIAGNOSTIC 1 EACH STRIP IN SCH (06:00)
[2017-01-03 07:26] VITALS: BP 125/51
[2017-01-03] MEDS: VITAMINS A AND D 56.7 GM TUBE TP SCH ×2 (09:00→20:58)
[2017-01-03] MEDS: ASCORBIC ACID 500 MG TABLET GT SCH (09:00)
[2017-01-03] MEDS: ASPIRIN 81 MG TAB.CHEW GT SCH (09:00)
[2017-01-03] MEDS: PROSOURCE / PROSTAT (PYXIS) 30 ML UDC GT SCH ×2 (09:00→17:31)
[2017-01-03] MEDS: LEVETIRACETAM SOL (5 ML) 100 MG/ML UDC GT SCH ×2 (09:00→20:58)
[2017-01-03] MEDS: CALCIUM CARBONATE 500 MG TAB.CHEW GT SCH ×2 (09:00→17:31)
[2017-01-03] MEDS: TRILEPTAL GT SCH ×2 (09:00→20:58)
[2017-01-03] MEDS: ACIDOPHILUS/BULGARICUS 1 EACH TAB.CHEW PO SCH ×3 (09:00→17:31)
[2017-01-03] MEDS: MVI/MINERALS LIQUID (CEROVITE) GT SCH (09:00)
[2017-01-03] MEDS: HYDROGEN PEROXIDE 480 ML BOTTLE TP SCH ×2 (09:00→20:58)
[2017-01-03] MEDS: Z GUARD REMEDY 4 OZ OINT TP SCH ×2 (09:00→20:58)
[2017-01-03] MEDS: HYDROGEL DRESSING 90 GM TUBE TP SCH ×2 (09:00→20:58)
--- NOTE | 2017-01-03 16:40 | NUR ---
Reported to Dr. Felix, final urine cx result E. Coli ESBL, CBC (WBC 9.5) and UA no new order given. Resident afebrile at 98.4
[2017-01-03] MEDS ORDERED: DEXTROSE 50%-WATER 50 ML DISP.SYRIN IV PRN (18:00)
[2017-01-03] MEDS: BLOOD SUGAR DIAGNOSTIC 1 EACH STRIP IN SCH (18:51)
[2017-01-03 19:53] VITALS: BP 112/71
[2017-01-04] MEDS: ALBUTEROL FS 2.5 MG/3 ML VIAL.NEB NEB SCH ×5 (03:22→19:32)
[2017-01-04] MEDS: DEXILANT 30 MG GT SCH (05:38)
[2017-01-04] MEDS: BLOOD SUGAR DIAGNOSTIC 1 EACH STRIP IN SCH ×2 (05:38→17:58)
[2017-01-04] MEDS: INSULIN REGULAR, HUMAN 100 UNIT/ML 3 ML VIAL SQ PRN (05:38)
[2017-01-04 07:38] VITALS: BP 118/72
[2017-01-04] MEDS: TRILEPTAL GT SCH ×2 (09:56→20:24)
[2017-01-04] MEDS: ASPIRIN 81 MG TAB.CHEW GT SCH (09:56)
[2017-01-04] MEDS: MVI/MINERALS LIQUID (CEROVITE) GT SCH (09:56)
[2017-01-04] MEDS: CALCIUM CARBONATE 500 MG TAB.CHEW GT SCH ×2 (09:56→17:10)
[2017-01-04] MEDS: ASCORBIC ACID 500 MG TABLET GT SCH (09:56)
[2017-01-04] MEDS: LEVETIRACETAM SOL (5 ML) 100 MG/ML UDC GT SCH ×2 (09:56→20:24)
[2017-01-04] MEDS: PROSOURCE / PROSTAT (PYXIS) 30 ML UDC GT SCH ×2 (09:56→17:10)
[2017-01-04] MEDS: HYDROGEL DRESSING 90 GM TUBE TP SCH ×2 (09:57→20:24)
[2017-01-04] MEDS: Z GUARD REMEDY 4 OZ OINT TP SCH ×2 (09:57→20:25)
[2017-01-04] MEDS: HYDROGEN PEROXIDE 480 ML BOTTLE TP SCH ×2 (09:57→20:24)
[2017-01-04] MEDS: VITAMINS A AND D 56.7 GM TUBE TP SCH ×2 (09:57→20:25)
[2017-01-04] MEDS: ACIDOPHILUS/BULGARICUS 1 EACH TAB.CHEW PO SCH ×3 (09:57→17:10)
--- NOTE | 2017-01-04 10:13 | NUR ---
Spoke with Dr. Montaño regarding result of ESBL, E.coli in urine and he gave an order to give Merrem 500 mg BiD x14 days and Have ID izabela COnsult. Spoke with Margaret jones for Izabela and she said she will see the patient later evening.
[2017-01-04] MEDS: MEROPENEM 500 MG in IV NS 0.9% 50 ML IV SCH (12:00)
[2017-01-04] MEDS: GLYTROL 1,000 ML BAG GT PRN (15:00)
[2017-01-04 19:48] VITALS: BP 116/72
[2017-01-04] MEDS: NEOMY SULF/BACITRAC ZN/POLY 15 GM TUBE TP SCH (20:24)
--- NOTE | 2017-01-04 22:00 | NUR ---
RN NOTES RN NOTES Seen and examined by NAN Rojas with order to continue Merrem 500mg IV q12hr x14 days.
[2017-01-05] MEDS: ALBUTEROL FS 2.5 MG/3 ML VIAL.NEB NEB SCH ×7 (00:09→23:15)
[2017-01-05] MEDS: GLYTROL 1,000 ML BAG GT PRN ×2 (00:15→21:15)
[2017-01-05] MEDS: BLOOD SUGAR DIAGNOSTIC 1 EACH STRIP IN SCH ×2 (05:33→18:00)
[2017-01-05] MEDS: DEXILANT 30 MG GT SCH (05:33)
[2017-01-05] MEDS: INSULIN REGULAR, HUMAN 100 UNIT/ML 3 ML VIAL SQ PRN ×2 (05:33→19:02)
--- NOTE | 2017-01-05 06:33 | NUR ---
Patient awake with no sign of distress or discomfort. Patient noted with her first day of menstrual cycle, CN aware. Will continue to monitor.
[2017-01-05 07:30] VITALS: BP 105/66
[2017-01-05] MEDS: Z GUARD REMEDY 4 OZ OINT TP SCH ×2 (09:00→20:10)
[2017-01-05] MEDS: ASPIRIN 81 MG TAB.CHEW GT SCH (09:00)
[2017-01-05] MEDS: TRILEPTAL GT SCH ×2 (09:00→20:08)
[2017-01-05] MEDS: VITAMINS A AND D 56.7 GM TUBE TP SCH ×2 (09:00→20:10)
[2017-01-05] MEDS: NEOMY SULF/BACITRAC ZN/POLY 15 GM TUBE TP SCH ×2 (09:00→20:10)
[2017-01-05] MEDS: ASCORBIC ACID 500 MG TABLET GT SCH (09:00)
[2017-01-05] MEDS: PROSOURCE / PROSTAT (PYXIS) 30 ML UDC GT SCH ×2 (09:00→16:54)
[2017-01-05] MEDS: LEVETIRACETAM SOL (5 ML) 100 MG/ML UDC GT SCH ×2 (09:00→20:08)
[2017-01-05] MEDS: CALCIUM CARBONATE 500 MG TAB.CHEW GT SCH ×2 (09:00→16:54)
[2017-01-05] MEDS: MVI/MINERALS LIQUID (CEROVITE) GT SCH (09:00)
[2017-01-05] MEDS: HYDROGEN PEROXIDE 480 ML BOTTLE TP SCH ×2 (09:00→20:09)
[2017-01-05] MEDS: ACIDOPHILUS/BULGARICUS 1 EACH TAB.CHEW PO SCH ×3 (09:00→16:54)
[2017-01-05] MEDS: HYDROGEL DRESSING 90 GM TUBE TP SCH ×2 (09:00→20:09)
[2017-01-05] MEDS: MEROPENEM 500 MG in IV NS 0.9% 50 ML IV SCH ×4 (11:59→23:04)
--- NOTE | 2017-01-05 13:00 | NUR ---
Seen by POPCORN MACHINE OPERATOR Anna Vargas. Relayed urine C/S result to her. Pt already on Merrem IV. No new order.
--- NOTE | 2017-01-05 15:42 | NUR ---
Resident's sister informed that director of product management will be coming tomorrow after 2:30pm 01/06/2017. She stated that she will not be able to be here but that it is okay for director of product management to see her and cut her nails. She wants to know if there is something the director of product management can prescribe for her nails and Sw will communicate this to the director of product management when he comes.
--- NOTE | 2017-01-05 16:17 | NUR ---
Pt was seen by Dr. Montaño. He ordered to do skin rash C/S. Dr. Alejo Garcia also came to see pt for the rashes and he ordered to apply hydrocortisone cream 1% q shift for [address] Alejo Garcia, the rashes look like folliculitis. He also advised the pt's sister who was at bedside to not apply any lotions to pt's skin.
[2017-01-05 19:52] VITALS: BP 94/64
[2017-01-05] MEDS ORDERED: HYDROCORTISONE 1% CREAM 28.35 GM TUBE TP SCH (21:00)
[2017-01-06] MEDS: ALBUTEROL FS 2.5 MG/3 ML VIAL.NEB NEB SCH ×6 (03:30→23:18)
[2017-01-06] MEDS: BLOOD SUGAR DIAGNOSTIC 1 EACH STRIP IN SCH ×2 (05:22→18:53)
[2017-01-06] MEDS: DEXILANT 30 MG GT SCH (05:22)
[2017-01-06 07:42] VITALS: BP 109/63
[2017-01-06] MEDS: HYDROGEN PEROXIDE 480 ML BOTTLE TP SCH ×2 (09:00→20:13)
[2017-01-06] MEDS: NEOMY SULF/BACITRAC ZN/POLY 15 GM TUBE TP SCH ×2 (09:00→20:13)
[2017-01-06] MEDS: VITAMINS A AND D 56.7 GM TUBE TP SCH ×2 (09:00→20:13)
[2017-01-06] MEDS: TRILEPTAL GT SCH ×2 (09:00→20:13)
[2017-01-06] MEDS: ASPIRIN 81 MG TAB.CHEW GT SCH (09:00)
[2017-01-06] MEDS: CALCIUM CARBONATE 500 MG TAB.CHEW GT SCH ×2 (09:00→16:25)
[2017-01-06] MEDS: LEVETIRACETAM SOL (5 ML) 100 MG/ML UDC GT SCH ×2 (09:00→20:13)
[2017-01-06] MEDS: ACIDOPHILUS/BULGARICUS 1 EACH TAB.CHEW PO SCH ×3 (09:00→16:25)
[2017-01-06] MEDS: MVI/MINERALS LIQUID (CEROVITE) GT SCH (09:00)
[2017-01-06] MEDS: ASCORBIC ACID 500 MG TABLET GT SCH (09:00)
[2017-01-06] MEDS: PROSOURCE / PROSTAT (PYXIS) 30 ML UDC GT SCH ×2 (09:00→16:25)
[2017-01-06] MEDS: Z GUARD REMEDY 4 OZ OINT TP SCH ×2 (09:00→20:13)
[2017-01-06] MEDS: HYDROGEL DRESSING 90 GM TUBE TP SCH ×2 (09:00→20:13)
--- NOTE | 2017-01-06 09:36 | NUR ---
Received a call from Joel from the office of Dr. Morillo ([phone]) who stated that Dr. Morilol informed her that he was not going to be able to come and see our hospital patient's anymore. She stated he is getting ready to retire and thinks that its best to find another complaint investigator for the patient's. STEPHEN faxed referral to [facility] (tel: [phone] fax: [phone]) for complaint investigator to be assigned. Cong to follow up with STEPHEN about which complaint investigator will be assigned to the patient.
[2017-01-06] MEDS: MEROPENEM 500 MG in IV NS 0.9% 50 ML IV SCH (12:20)
--- NOTE | 2017-01-06 12:27 | NUR ---
Seen by Dr. Craig. He trimmed pt's toenails. Pt tolerated procedure well.
--- NOTE | 2017-01-06 12:52 | NUR ---
Received preliminary wound culture result (skin rashes) and it shows moderate growth of Staphylococcus aureus. No sensitivities available yet. Relayed result to Dr. Montaño and he said to wait for the sensitivities. Addendum: 01/06/17 at 1254 by SARITA GOMEZ RN Dr. Montaño ordered to DC Hydrocortisone cream for the pt's rashes.
[2017-01-06] MEDS: INSULIN REGULAR, HUMAN 100 UNIT/ML 3 ML VIAL SQ PRN (18:54)
[2017-01-06 19:47] VITALS: BP 125/78
[2017-01-07] MEDS: MEROPENEM 500 MG in IV NS 0.9% 50 ML IV SCH ×2 (00:36→12:20)
[2017-01-07] MEDS: ALBUTEROL FS 2.5 MG/3 ML VIAL.NEB NEB SCH ×5 (02:32→19:42)
[2017-01-07] MEDS: HYDROGEL DRESSING 90 GM TUBE TP SCH ×2 (09:00→21:49)
[2017-01-07] MEDS: PROSOURCE / PROSTAT (PYXIS) 30 ML UDC GT SCH ×2 (09:00→16:42)
[2017-01-07] MEDS: HYDROGEN PEROXIDE 480 ML BOTTLE TP SCH ×2 (09:00→21:49)
[2017-01-07] MEDS: TRILEPTAL GT SCH ×2 (09:00→21:49)
[2017-01-07] MEDS: MVI/MINERALS LIQUID (CEROVITE) GT SCH (09:00)
[2017-01-07] MEDS: LEVETIRACETAM SOL (5 ML) 100 MG/ML UDC GT SCH ×2 (09:00→21:49)
[2017-01-07] MEDS: VITAMINS A AND D 56.7 GM TUBE TP SCH ×2 (09:00→21:50)
[2017-01-07] MEDS: CALCIUM CARBONATE 500 MG TAB.CHEW GT SCH ×2 (09:00→16:42)
[2017-01-07] MEDS: ASCORBIC ACID 500 MG TABLET GT SCH (09:00)
[2017-01-07] MEDS: ASPIRIN 81 MG TAB.CHEW GT SCH (09:00)
[2017-01-07] MEDS: ACIDOPHILUS/BULGARICUS 1 EACH TAB.CHEW PO SCH ×3 (09:00→16:42)
[2017-01-07] MEDS: Z GUARD REMEDY 4 OZ OINT TP SCH ×2 (09:00→21:49)
[2017-01-07] MEDS: NEOMY SULF/BACITRAC ZN/POLY 15 GM TUBE TP SCH ×2 (09:00→21:49)
--- NOTE | 2017-01-07 11:51 | NUR ---
DRAWER UPFITTER PT SKIN SCRAPE CAME BACK PT IS POSITIVE FOR MRSA DR. FLORES AWARE WILL LOOK AT THE PT AND PUT IN ORDERS IF NEED TO.
[2017-01-07 12:28] VITALS: BP 129/67
[2017-01-07] MEDS: GLYTROL 1,000 ML BAG GT PRN (12:30)
[2017-01-07] MEDS: BLOOD SUGAR DIAGNOSTIC 1 EACH STRIP IN SCH (17:54)
[2017-01-07 20:26] VITALS: BP 117/61
[2017-01-07] MEDS: LORAZEPAM 1 MG TABLET GT PRN (21:50)
--- NOTE | 2017-01-07 22:00 | NUR ---
noted seizure x1, duration of approx 10 seconds. no s/s of respiratory distress. given prn ativan 1 mg via gt. all safety measures in place.
[2017-01-08] MEDS: ALBUTEROL FS 2.5 MG/3 ML VIAL.NEB NEB SCH ×7 (00:22→23:29)
[2017-01-08] MEDS: MEROPENEM 500 MG in IV NS 0.9% 50 ML IV SCH ×3 (00:39→23:56)
[2017-01-08] MEDS: GLYTROL 1,000 ML BAG GT PRN ×2 (01:35→13:33)
[2017-01-08] MEDS: DEXILANT 30 MG GT SCH (05:46)
[2017-01-08] MEDS: INSULIN REGULAR, HUMAN 100 UNIT/ML 3 ML VIAL SQ PRN (05:47)
[2017-01-08] MEDS: BLOOD SUGAR DIAGNOSTIC 1 EACH STRIP IN SCH ×2 (05:47→17:07)
[2017-01-08 07:48] VITALS: BP 111/59
[2017-01-08] MEDS: ASPIRIN 81 MG TAB.CHEW GT SCH (08:11)
[2017-01-08] MEDS: PROSOURCE / PROSTAT (PYXIS) 30 ML UDC GT SCH ×2 (08:12→16:58)
[2017-01-08] MEDS: CALCIUM CARBONATE 500 MG TAB.CHEW GT SCH ×2 (08:12→16:58)
[2017-01-08] MEDS: ASCORBIC ACID 500 MG TABLET GT SCH (08:12)
[2017-01-08] MEDS: HYDROGEN PEROXIDE 480 ML BOTTLE TP SCH ×2 (08:13→21:23)
[2017-01-08] MEDS: HYDROGEL DRESSING 90 GM TUBE TP SCH ×2 (08:13→21:23)
[2017-01-08] MEDS: ACIDOPHILUS/BULGARICUS 1 EACH TAB.CHEW PO SCH ×3 (08:13→16:58)
[2017-01-08] MEDS: NEOMY SULF/BACITRAC ZN/POLY 15 GM TUBE TP SCH ×2 (08:13→21:23)
[2017-01-08] MEDS: LEVETIRACETAM SOL (5 ML) 100 MG/ML UDC GT SCH ×2 (08:14→21:23)
[2017-01-08] MEDS: VITAMINS A AND D 56.7 GM TUBE TP SCH ×2 (08:14→21:23)
[2017-01-08] MEDS: Z GUARD REMEDY 4 OZ OINT TP SCH ×2 (08:14→21:23)
[2017-01-08] MEDS: MVI/MINERALS LIQUID (CEROVITE) GT SCH (08:14)
[2017-01-08] MEDS: TRILEPTAL GT SCH ×2 (08:19→21:23)
--- NOTE | 2017-01-08 12:43 | NUR ---
Notified Dr. Montaño of wound c/s result on BLE rash- MRSA positive with multiple sensitivities. Awaiting response/ new order.
--- NOTE | 2017-01-08 17:50 | NUR ---
Dr. Montaño with order for Bactrim DS 1tab via GT BID x 10 days for MRSA maria de jesus leg rash. Pt with additional isolation for MRSA. Pt's sister Beckie updated of new antibiotic and isolation, appreciative of call.
[2017-01-08 19:58] VITALS: BP 108/65
[2017-01-08] MEDS: MAGNESIUM HYDROXIDE 30 ML UDC GT PRN (21:23)
[2017-01-08] MEDS: diphenhydrAMINE HCL ELIX 25 MG/10 ML UDC GT PRN (21:23)
[2017-01-08] MEDS: SULFAMETH/TRIMETH 800/160 MG 1 UDTAB TABLET PO SCH (21:23)
[2017-01-08] MEDS: DOCUSATE SODIUM LIQ 100 MG/10 ML UDC GT PRN (21:23)
[2017-01-09] MEDS: ALBUTEROL FS 2.5 MG/3 ML VIAL.NEB NEB SCH ×6 (03:53→23:34)
[2017-01-09] MEDS: GLYTROL 1,000 ML BAG GT PRN (05:15)
[2017-01-09] MEDS: BISACODYL SUPP (10 MG) 10 MG/SUPP.RECT SUPP.RECT RC PRN (05:15)
[2017-01-09] MEDS: BLOOD SUGAR DIAGNOSTIC 1 EACH STRIP IN SCH ×2 (05:15→18:17)
[2017-01-09] MEDS: DEXILANT 30 MG GT SCH (05:15)
[2017-01-09] MEDS: INSULIN REGULAR, HUMAN 100 UNIT/ML 3 ML VIAL SQ PRN ×2 (05:15→18:30)
[2017-01-09 07:31] VITALS: BP 106/37
[2017-01-09] MEDS: ASPIRIN 81 MG TAB.CHEW GT SCH (09:37)
[2017-01-09] MEDS: TRILEPTAL GT SCH ×2 (09:38→20:01)
[2017-01-09] MEDS: PROSOURCE / PROSTAT (PYXIS) 30 ML UDC GT SCH ×2 (09:39→17:00)
[2017-01-09] MEDS: LEVETIRACETAM SOL (5 ML) 100 MG/ML UDC GT SCH ×2 (09:39→20:02)
[2017-01-09] MEDS: SULFAMETH/TRIMETH 800/160 MG 1 UDTAB TABLET PO SCH ×2 (09:39→17:00)
[2017-01-09] MEDS: MVI/MINERALS LIQUID (CEROVITE) GT SCH (09:39)
[2017-01-09] MEDS: ASCORBIC ACID 500 MG TABLET GT SCH (09:39)
[2017-01-09] MEDS: CALCIUM CARBONATE 500 MG TAB.CHEW GT SCH ×2 (09:39→17:00)
[2017-01-09] MEDS: ACIDOPHILUS/BULGARICUS 1 EACH TAB.CHEW PO SCH ×3 (09:40→17:00)
[2017-01-09] MEDS: NEOMY SULF/BACITRAC ZN/POLY 15 GM TUBE TP SCH ×2 (09:41→20:07)
[2017-01-09] MEDS: Z GUARD REMEDY 4 OZ OINT TP SCH ×2 (09:41→20:07)
[2017-01-09] MEDS: HYDROGEN PEROXIDE 480 ML BOTTLE TP SCH ×2 (09:41→20:07)
[2017-01-09] MEDS: VITAMINS A AND D 56.7 GM TUBE TP SCH ×2 (09:41→20:07)
[2017-01-09] MEDS: MEROPENEM 500 MG in IV NS 0.9% 50 ML IV SCH ×2 (12:15→23:56)
--- NOTE | 2017-01-09 16:10 | NUR ---
Dr. Hathaway ordered to give Senokot 8.6 mg 1 tab via GT daily for constipation.
[2017-01-09 20:15] VITALS: BP 98/48
[2017-01-09 21:00] VITALS: BP 98/48
[2017-01-10] MEDS: GLYTROL 1,000 ML BAG GT PRN ×2 (02:53→20:09)
[2017-01-10] MEDS: ALBUTEROL FS 2.5 MG/3 ML VIAL.NEB NEB SCH ×6 (03:23→22:53)
[2017-01-10] MEDS: DEXILANT 30 MG GT SCH (05:05)
[2017-01-10] MEDS: BLOOD SUGAR DIAGNOSTIC 1 EACH STRIP IN SCH ×2 (05:06→17:07)
[2017-01-10] MEDS: INSULIN REGULAR, HUMAN 100 UNIT/ML 3 ML VIAL SQ PRN ×2 (05:06→17:15)
[2017-01-10 08:07] VITALS: BP 113/61
[2017-01-10] MEDS: NEOMY SULF/BACITRAC ZN/POLY 15 GM TUBE TP SCH ×2 (09:00→20:02)
[2017-01-10] MEDS: HYDROGEN PEROXIDE 480 ML BOTTLE TP SCH ×2 (09:00→20:02)
[2017-01-10] MEDS: Z GUARD REMEDY 4 OZ OINT TP SCH ×2 (09:00→20:02)
[2017-01-10] MEDS: VITAMINS A AND D 56.7 GM TUBE TP SCH ×2 (09:00→20:02)
[2017-01-10] MEDS: ASPIRIN 81 MG TAB.CHEW GT SCH (09:24)
[2017-01-10] MEDS: TRILEPTAL GT SCH ×2 (09:24→20:02)
[2017-01-10] MEDS: MVI/MINERALS LIQUID (CEROVITE) GT SCH (09:24)
[2017-01-10] MEDS: LEVETIRACETAM SOL (5 ML) 100 MG/ML UDC GT SCH ×2 (09:24→20:02)
[2017-01-10] MEDS: SULFAMETH/TRIMETH 800/160 MG 1 UDTAB TABLET PO SCH ×2 (09:25→17:03)
[2017-01-10] MEDS: ACIDOPHILUS/BULGARICUS 1 EACH TAB.CHEW PO SCH ×3 (09:25→17:03)
[2017-01-10] MEDS: PROSOURCE / PROSTAT (PYXIS) 30 ML UDC GT SCH ×2 (09:25→17:02)
[2017-01-10] MEDS: SENNOSIDES 8.6 MG TABLET GT SCH (09:25)
[2017-01-10] MEDS: ASCORBIC ACID 500 MG TABLET GT SCH (09:25)
[2017-01-10] MEDS: CALCIUM CARBONATE 500 MG TAB.CHEW GT SCH ×2 (09:25→17:02)
[2017-01-10] MEDS: MEROPENEM 500 MG in IV NS 0.9% 50 ML IV SCH (12:18)
[2017-01-10 20:03] VITALS: BP 105/46
[2017-01-10] MEDS: DOCUSATE SODIUM LIQ 100 MG/10 ML UDC GT PRN (20:09)
[2017-01-10] MEDS: MAGNESIUM HYDROXIDE 30 ML UDC GT PRN (20:09)
[2017-01-10] MEDS: diphenhydrAMINE HCL ELIX 25 MG/10 ML UDC GT PRN (22:00)
[2017-01-11] MEDS: ALBUTEROL FS 2.5 MG/3 ML VIAL.NEB NEB SCH ×6 (02:32→23:38)
[2017-01-11] MEDS: diphenhydrAMINE HCL ELIX 25 MG/10 ML UDC GT PRN ×2 (05:08→05:13)
[2017-01-11] MEDS: INSULIN REGULAR, HUMAN 100 UNIT/ML 3 ML VIAL SQ PRN ×2 (05:08→19:10)
[2017-01-11] MEDS: BLOOD SUGAR DIAGNOSTIC 1 EACH STRIP IN SCH ×2 (05:08→18:00)
[2017-01-11] MEDS: DEXILANT 30 MG GT SCH (05:08)
[2017-01-11 07:38] VITALS: BP 109/64
[2017-01-11] MEDS: MVI/MINERALS LIQUID (CEROVITE) GT SCH (09:00)
[2017-01-11] MEDS: Z GUARD REMEDY 4 OZ OINT TP SCH ×2 (09:00→20:15)
[2017-01-11] MEDS: VITAMINS A AND D 56.7 GM TUBE TP SCH ×2 (09:00→20:15)
[2017-01-11] MEDS: SULFAMETH/TRIMETH 800/160 MG 1 UDTAB TABLET PO SCH ×2 (09:00→16:56)
[2017-01-11] MEDS: NEOMY SULF/BACITRAC ZN/POLY 15 GM TUBE TP SCH ×2 (09:00→20:15)
[2017-01-11] MEDS: SENNOSIDES 8.6 MG TABLET GT SCH (09:00)
[2017-01-11] MEDS: PROSOURCE / PROSTAT (PYXIS) 30 ML UDC GT SCH ×2 (09:00→16:56)
[2017-01-11] MEDS: ASPIRIN 81 MG TAB.CHEW GT SCH (09:00)
[2017-01-11] MEDS: ACIDOPHILUS/BULGARICUS 1 EACH TAB.CHEW PO SCH ×3 (09:00→16:56)
[2017-01-11] MEDS: LEVETIRACETAM SOL (5 ML) 100 MG/ML UDC GT SCH ×2 (09:00→20:15)
[2017-01-11] MEDS: ASCORBIC ACID 500 MG TABLET GT SCH (09:00)
[2017-01-11] MEDS: HYDROGEN PEROXIDE 480 ML BOTTLE TP SCH ×2 (09:00→20:15)
[2017-01-11] MEDS: TRILEPTAL GT SCH ×2 (09:00→20:15)
[2017-01-11] MEDS: CALCIUM CARBONATE 500 MG TAB.CHEW GT SCH ×2 (09:00→16:56)
[2017-01-11] MEDS: MEROPENEM 500 MG in IV NS 0.9% 50 ML IV SCH ×3 (12:00)
[2017-01-11] MEDS: GLYTROL 1,000 ML BAG GT PRN (14:40)
[2017-01-11 20:10] VITALS: BP 104/67
[2017-01-12] MEDS: ALBUTEROL FS 2.5 MG/3 ML VIAL.NEB NEB SCH ×6 (03:05→23:30)
[2017-01-12] MEDS: GLYTROL 1,000 ML BAG GT PRN ×2 (05:03→21:55)
[2017-01-12] MEDS: DEXILANT 30 MG GT SCH (06:27)
[2017-01-12] MEDS: BLOOD SUGAR DIAGNOSTIC 1 EACH STRIP IN SCH ×2 (06:27→17:17)
[2017-01-12] MEDS: INSULIN REGULAR, HUMAN 100 UNIT/ML 3 ML VIAL SQ PRN (06:27)
[2017-01-12 07:37] VITALS: BP 97/63
[2017-01-12] MEDS: ACIDOPHILUS/BULGARICUS 1 EACH TAB.CHEW PO SCH ×3 (08:23→17:17)
[2017-01-12] MEDS: MVI/MINERALS LIQUID (CEROVITE) GT SCH (08:23)
[2017-01-12] MEDS: ASCORBIC ACID 500 MG TABLET GT SCH (08:23)
[2017-01-12] MEDS: CALCIUM CARBONATE 500 MG TAB.CHEW GT SCH ×2 (08:23→17:17)
[2017-01-12] MEDS: LEVETIRACETAM SOL (5 ML) 100 MG/ML UDC GT SCH ×2 (08:23→20:02)
[2017-01-12] MEDS: PROSOURCE / PROSTAT (PYXIS) 30 ML UDC GT SCH ×2 (08:23→17:17)
[2017-01-12] MEDS: SENNOSIDES 8.6 MG TABLET GT SCH (08:23)
[2017-01-12] MEDS: ASPIRIN 81 MG TAB.CHEW GT SCH (08:23)
[2017-01-12] MEDS: TRILEPTAL GT SCH ×2 (08:23→20:02)
[2017-01-12] MEDS: SULFAMETH/TRIMETH 800/160 MG 1 UDTAB TABLET PO SCH ×2 (08:23→17:17)
[2017-01-12] MEDS: MEROPENEM 500 MG in IV NS 0.9% 50 ML IV SCH ×3 (11:32)
[2017-01-12] MEDS: HYDROGEN PEROXIDE 480 ML BOTTLE TP SCH ×2 (14:00→20:02)
[2017-01-12] MEDS: NEOMY SULF/BACITRAC ZN/POLY 15 GM TUBE TP SCH ×2 (14:00→20:02)
[2017-01-12] MEDS: Z GUARD REMEDY 4 OZ OINT TP SCH ×2 (14:00→20:02)
[2017-01-12] MEDS: VITAMINS A AND D 56.7 GM TUBE TP SCH ×2 (14:00→20:02)
[2017-01-12 19:55] VITALS: BP 111/62
[2017-01-13] MEDS: MEROPENEM 500 MG in IV NS 0.9% 50 ML IV SCH ×2 (00:44→11:54)
[2017-01-13] MEDS: ALBUTEROL FS 2.5 MG/3 ML VIAL.NEB NEB SCH ×6 (04:04→23:30)
[2017-01-13] MEDS: BLOOD SUGAR DIAGNOSTIC 1 EACH STRIP IN SCH ×2 (06:03→17:29)
[2017-01-13] MEDS: DEXILANT 30 MG GT SCH (06:03)
[2017-01-13 08:02] VITALS: BP 122/71
[2017-01-13] MEDS: SULFAMETH/TRIMETH 800/160 MG 1 UDTAB TABLET PO SCH ×2 (08:58→17:29)
[2017-01-13] MEDS: ASCORBIC ACID 500 MG TABLET GT SCH (08:58)
[2017-01-13] MEDS: MVI/MINERALS LIQUID (CEROVITE) GT SCH (08:58)
[2017-01-13] MEDS: LEVETIRACETAM SOL (5 ML) 100 MG/ML UDC GT SCH ×2 (08:58→20:06)
[2017-01-13] MEDS: CALCIUM CARBONATE 500 MG TAB.CHEW GT SCH ×2 (08:58→17:29)
[2017-01-13] MEDS: SENNOSIDES 8.6 MG TABLET GT SCH (08:58)
[2017-01-13] MEDS: ASPIRIN 81 MG TAB.CHEW GT SCH (08:58)
[2017-01-13] MEDS: PROSOURCE / PROSTAT (PYXIS) 30 ML UDC GT SCH ×2 (08:58→17:29)
[2017-01-13] MEDS: TRILEPTAL GT SCH ×2 (08:58→20:06)
[2017-01-13] MEDS: ACIDOPHILUS/BULGARICUS 1 EACH TAB.CHEW PO SCH ×3 (08:59→17:29)
[2017-01-13] MEDS: Z GUARD REMEDY 4 OZ OINT TP SCH ×2 (09:00→20:06)
[2017-01-13] MEDS: VITAMINS A AND D 56.7 GM TUBE TP SCH ×2 (09:00→20:06)
[2017-01-13] MEDS: NEOMY SULF/BACITRAC ZN/POLY 15 GM TUBE TP SCH ×2 (12:00→20:06)
[2017-01-13] MEDS: HYDROGEN PEROXIDE 480 ML BOTTLE TP SCH ×2 (12:00→20:06)
[2017-01-13] MEDS: GLYTROL 1,000 ML BAG GT PRN (15:20)
[2017-01-13 20:00] VITALS: BP 120/94
[2017-01-13] MEDS: HYDROGEL DRESSING 90 GM TUBE TP SCH (20:06)
[2017-01-13 21:18] VITALS: BP 111/50
[2017-01-14] MEDS: MEROPENEM 500 MG in IV NS 0.9% 50 ML IV SCH ×2 (00:07→12:45)
[2017-01-14] MEDS: ALBUTEROL FS 2.5 MG/3 ML VIAL.NEB NEB SCH ×6 (03:30→23:35)
[2017-01-14] MEDS: DEXILANT 30 MG GT SCH (05:08)
[2017-01-14] MEDS: BLOOD SUGAR DIAGNOSTIC 1 EACH STRIP IN SCH ×2 (05:43→18:47)
[2017-01-14 07:55] VITALS: BP 123/52
[2017-01-14] MEDS: TRILEPTAL GT SCH ×2 (09:14→20:15)
[2017-01-14] MEDS: ASPIRIN 81 MG TAB.CHEW GT SCH (09:14)
[2017-01-14] MEDS: SULFAMETH/TRIMETH 800/160 MG 1 UDTAB TABLET PO SCH ×2 (09:15→17:00)
[2017-01-14] MEDS: CALCIUM CARBONATE 500 MG TAB.CHEW GT SCH ×2 (09:15→17:00)
[2017-01-14] MEDS: ACIDOPHILUS/BULGARICUS 1 EACH TAB.CHEW PO SCH ×3 (09:15→17:00)
[2017-01-14] MEDS: ASCORBIC ACID 500 MG TABLET GT SCH (09:15)
[2017-01-14] MEDS: PROSOURCE / PROSTAT (PYXIS) 30 ML UDC GT SCH ×2 (09:15→17:00)
[2017-01-14] MEDS: SENNOSIDES 8.6 MG TABLET GT SCH (09:15)
[2017-01-14] MEDS: LEVETIRACETAM SOL (5 ML) 100 MG/ML UDC GT SCH ×2 (09:15→20:15)
[2017-01-14] MEDS: MVI/MINERALS LIQUID (CEROVITE) GT SCH (09:15)
[2017-01-14] MEDS: HYDROGEN PEROXIDE 480 ML BOTTLE TP SCH ×2 (09:16→20:15)
[2017-01-14] MEDS: HYDROGEL DRESSING 90 GM TUBE TP SCH ×2 (09:16→20:15)
[2017-01-14] MEDS: NEOMY SULF/BACITRAC ZN/POLY 15 GM TUBE TP SCH ×2 (09:16→20:15)
[2017-01-14] MEDS: VITAMINS A AND D 56.7 GM TUBE TP SCH ×2 (09:16→20:15)
[2017-01-14] MEDS: Z GUARD REMEDY 4 OZ OINT TP SCH ×2 (09:16→20:15)
[2017-01-14] MEDS: INSULIN REGULAR, HUMAN 100 UNIT/ML 3 ML VIAL SQ PRN (18:48)
[2017-01-14 19:52] VITALS: BP 115/61
[2017-01-14] MEDS: GLYTROL 1,000 ML BAG GT PRN (22:45)
[2017-01-15] MEDS: MEROPENEM 500 MG in IV NS 0.9% 50 ML IV SCH ×2 (00:23→12:33)
[2017-01-15] MEDS: ALBUTEROL FS 2.5 MG/3 ML VIAL.NEB NEB SCH ×6 (02:44→23:30)
[2017-01-15] MEDS: DEXILANT 30 MG GT SCH (05:07)
[2017-01-15 05:49] LABS: BASOPHILS % (AUTO) 0.3 % (0.0-2.0); EOSINOPHILS # (AUTO) 0.5 /CMM (0.0-0.7); EOSINOPHILS % (AUTO) 4.5 % (0.0-6.0); HEMATOCRIT 29 % (33-45); HEMOGLOBIN 9.8 g/dL (11.5-14.8); LYMPHOCYTES # (AUTO) 1.1 /CMM (0.8-4.8); MEAN CORPUSCULAR HEMOGLOBIN 33 PG (26.0-33.0); MEAN CORPUSCULAR HGB CONC 34 g/dl (31.0-36.0); MEAN CORPUSCULAR VOLUME 97 fL (82-100); MONOCYTES # (AUTO) 0.9 /CMM (0.1-1.30); NEUTROPHILS # (AUTO) 7.6 /CMM (1.8-8.9); NEUTROPHILS % (AUTO) 75.2 % (43.0-81.0); PLATELET COUNT (AUTO) 436 /CMM (150-450); RDW COEFFICIENT OF VARIATION 14.6 (11.5-15.0); RED BLOOD CELL COUNT(AUTO) 2.98 MIL/uL (4.0-5.2); WHITE BLOOD COUNT (AUTO) 10.1 K/uL (4.3-11.0)
[2017-01-15] MEDS: BLOOD SUGAR DIAGNOSTIC 1 EACH STRIP IN SCH ×2 (06:05→17:07)
[2017-01-15 06:08] LABS: CALCIUM, SERUM 9.1 mg/dL (8.5-10.1); CREATININE 1.4 mg/dL (0.6-1.3); POTASSIUM 3.7 mmol/L (3.5-5.1)
[2017-01-15 08:04] VITALS: BP 117/61
[2017-01-15] MEDS: MVI/MINERALS LIQUID (CEROVITE) GT SCH (09:00)
[2017-01-15] MEDS: LEVETIRACETAM SOL (5 ML) 100 MG/ML UDC GT SCH ×2 (09:00→20:16)
[2017-01-15] MEDS: HYDROGEN PEROXIDE 480 ML BOTTLE TP SCH ×2 (09:00→20:16)
[2017-01-15] MEDS: VITAMINS A AND D 56.7 GM TUBE TP SCH ×2 (09:00→20:16)
[2017-01-15] MEDS: SENNOSIDES 8.6 MG TABLET GT SCH (09:00)
[2017-01-15] MEDS: HYDROGEL DRESSING 90 GM TUBE TP SCH ×2 (09:00→20:16)
[2017-01-15] MEDS: ASCORBIC ACID 500 MG TABLET GT SCH (09:00)
[2017-01-15] MEDS: PROSOURCE / PROSTAT (PYXIS) 30 ML UDC GT SCH ×2 (09:00→17:07)
[2017-01-15] MEDS: TRILEPTAL GT SCH ×2 (09:00→20:16)
[2017-01-15] MEDS: Z GUARD REMEDY 4 OZ OINT TP SCH ×2 (09:00→20:16)
[2017-01-15] MEDS: CALCIUM CARBONATE 500 MG TAB.CHEW GT SCH ×2 (09:00→17:07)
[2017-01-15] MEDS: NEOMY SULF/BACITRAC ZN/POLY 15 GM TUBE TP SCH ×2 (09:00→20:16)
[2017-01-15] MEDS: SULFAMETH/TRIMETH 800/160 MG 1 UDTAB TABLET PO SCH ×2 (09:00→17:07)
[2017-01-15] MEDS: ACIDOPHILUS/BULGARICUS 1 EACH TAB.CHEW PO SCH ×3 (09:00→17:07)
[2017-01-15] MEDS: ASPIRIN 81 MG TAB.CHEW GT SCH (09:00)
--- NOTE | 2017-01-15 15:54 | NUR ---
Provided copies of IDT paperwork per the sister's request.
[2017-01-15] MEDS: GLYTROL 1,000 ML BAG GT PRN (16:57)
[2017-01-15] MEDS: diphenhydrAMINE HCL ELIX 25 MG/10 ML UDC GT PRN (19:16)
[2017-01-15 19:31] VITALS: BP 140/89
[2017-01-15] MEDS: MAGNESIUM HYDROXIDE 30 ML UDC GT PRN (20:16)
[2017-01-16] MEDS: MEROPENEM 500 MG in IV NS 0.9% 50 ML IV SCH ×2 (00:03→11:55)
[2017-01-16] MEDS: ALBUTEROL FS 2.5 MG/3 ML VIAL.NEB NEB SCH ×5 (04:00→20:01)
[2017-01-16] MEDS: BLOOD SUGAR DIAGNOSTIC 1 EACH STRIP IN SCH ×2 (05:11→17:13)
[2017-01-16] MEDS: DEXILANT 30 MG GT SCH (05:11)
[2017-01-16] MEDS: INSULIN REGULAR, HUMAN 100 UNIT/ML 3 ML VIAL SQ PRN (05:11)
[2017-01-16 07:32] VITALS: BP 105/67
[2017-01-16] MEDS: MVI/MINERALS LIQUID (CEROVITE) GT SCH (08:37)
[2017-01-16] MEDS: ASCORBIC ACID 500 MG TABLET GT SCH (08:37)
[2017-01-16] MEDS: LEVETIRACETAM SOL (5 ML) 100 MG/ML UDC GT SCH ×2 (08:37→20:15)
[2017-01-16] MEDS: VITAMINS A AND D 56.7 GM TUBE TP SCH ×2 (08:37→20:16)
[2017-01-16] MEDS: PROSOURCE / PROSTAT (PYXIS) 30 ML UDC GT SCH ×2 (08:37→17:13)
[2017-01-16] MEDS: SULFAMETH/TRIMETH 800/160 MG 1 UDTAB TABLET PO SCH ×2 (08:37→17:13)
[2017-01-16] MEDS: NEOMY SULF/BACITRAC ZN/POLY 15 GM TUBE TP SCH ×2 (08:37→20:16)
[2017-01-16] MEDS: TRILEPTAL GT SCH ×2 (08:37→20:15)
[2017-01-16] MEDS: Z GUARD REMEDY 4 OZ OINT TP SCH ×2 (08:37→20:16)
[2017-01-16] MEDS: HYDROGEL DRESSING 90 GM TUBE TP SCH ×2 (08:37→20:15)
[2017-01-16] MEDS: HYDROGEN PEROXIDE 480 ML BOTTLE TP SCH ×2 (08:37→20:15)
[2017-01-16] MEDS: CALCIUM CARBONATE 500 MG TAB.CHEW GT SCH ×2 (08:37→17:13)
[2017-01-16] MEDS: ACIDOPHILUS/BULGARICUS 1 EACH TAB.CHEW PO SCH ×3 (08:37→17:13)
[2017-01-16] MEDS: ASPIRIN 81 MG TAB.CHEW GT SCH (08:37)
[2017-01-16] MEDS: SENNOSIDES 8.6 MG TABLET GT SCH (08:37)
--- NOTE | 2017-01-16 12:37 | NUR ---
Security provided notice to the unit that the resident's sister had written. She stated that the following person's are the only one's that can visit: her daughter Juanito Watters and two brother's Willis Chu and Clifford Chu. She states that if anyone else wants to visit, they must call her at [phone] to obtain approval. Charge nurse was informed as well.
[2017-01-16] MEDS: GLYTROL 1,000 ML BAG GT PRN (17:14)
[2017-01-16 19:29] VITALS: BP 123/74
[2017-01-16] MEDS: diphenhydrAMINE HCL ELIX 25 MG/10 ML UDC GT PRN (20:16)
[2017-01-17] MEDS: ALBUTEROL FS 2.5 MG/3 ML VIAL.NEB NEB SCH ×7 (00:04→22:59)
[2017-01-17] MEDS: MEROPENEM 500 MG in IV NS 0.9% 50 ML IV SCH ×2 (00:09→11:19)
[2017-01-17] MEDS: DEXILANT 30 MG GT SCH (05:19)
[2017-01-17] MEDS: GLYTROL 1,000 ML BAG GT PRN ×2 (05:19→17:33)
[2017-01-17] MEDS: BLOOD SUGAR DIAGNOSTIC 1 EACH STRIP IN SCH ×2 (05:19→17:33)
[2017-01-17] MEDS: MAGNESIUM HYDROXIDE 30 ML UDC GT PRN (05:19)
[2017-01-17] MEDS: INSULIN REGULAR, HUMAN 100 UNIT/ML 3 ML VIAL SQ PRN (05:20)
[2017-01-17] MEDS: BISACODYL SUPP (10 MG) 10 MG/SUPP.RECT SUPP.RECT RC PRN (05:20)
[2017-01-17 07:32] VITALS: BP 114/63
[2017-01-17] MEDS: TRILEPTAL GT SCH ×2 (08:18→20:29)
[2017-01-17] MEDS: NEOMY SULF/BACITRAC ZN/POLY 15 GM TUBE TP SCH ×2 (08:18→20:29)
[2017-01-17] MEDS: VITAMINS A AND D 56.7 GM TUBE TP SCH ×2 (08:18→20:29)
[2017-01-17] MEDS: CALCIUM CARBONATE 500 MG TAB.CHEW GT SCH ×2 (08:18→17:33)
[2017-01-17] MEDS: HYDROGEL DRESSING 90 GM TUBE TP SCH ×2 (08:18→20:29)
[2017-01-17] MEDS: SENNOSIDES 8.6 MG TABLET GT SCH (08:18)
[2017-01-17] MEDS: Z GUARD REMEDY 4 OZ OINT TP SCH ×2 (08:18→20:29)
[2017-01-17] MEDS: PROSOURCE / PROSTAT (PYXIS) 30 ML UDC GT SCH ×2 (08:18→17:33)
[2017-01-17] MEDS: ACIDOPHILUS/BULGARICUS 1 EACH TAB.CHEW PO SCH ×3 (08:18→17:33)
[2017-01-17] MEDS: SULFAMETH/TRIMETH 800/160 MG 1 UDTAB TABLET PO SCH ×2 (08:18→17:33)
[2017-01-17] MEDS: MVI/MINERALS LIQUID (CEROVITE) GT SCH (08:18)
[2017-01-17] MEDS: ASPIRIN 81 MG TAB.CHEW GT SCH (08:18)
[2017-01-17] MEDS: LEVETIRACETAM SOL (5 ML) 100 MG/ML UDC GT SCH ×2 (08:18→20:29)
[2017-01-17] MEDS: HYDROGEN PEROXIDE 480 ML BOTTLE TP SCH ×2 (08:18→20:29)
[2017-01-17] MEDS: ASCORBIC ACID 500 MG TABLET GT SCH (08:18)
[2017-01-17 19:28] VITALS: BP 108/77
[2017-01-17 22:59] VITALS: BP_SYST 89
[2017-01-18] MEDS: MEROPENEM 500 MG in IV NS 0.9% 50 ML IV SCH ×2
[2017-01-18] MEDS: ALBUTEROL FS 2.5 MG/3 ML VIAL.NEB NEB SCH ×6 (03:11→23:46)
[2017-01-18] MEDS: BLOOD SUGAR DIAGNOSTIC 1 EACH STRIP IN SCH ×2 (05:14→17:25)
[2017-01-18] MEDS: INSULIN REGULAR, HUMAN 100 UNIT/ML 3 ML VIAL SQ PRN (05:14)
[2017-01-18] MEDS: DEXILANT 30 MG GT SCH (05:14)
[2017-01-18 07:57] VITALS: BP 113/64
[2017-01-18] MEDS: Z GUARD REMEDY 4 OZ OINT TP SCH ×2 (09:00→20:41)
[2017-01-18] MEDS: CALCIUM CARBONATE 500 MG TAB.CHEW GT SCH ×2 (09:00→16:40)
[2017-01-18] MEDS: ACIDOPHILUS/BULGARICUS 1 EACH TAB.CHEW PO SCH ×3 (09:00→16:41)
[2017-01-18] MEDS: TRILEPTAL GT SCH ×2 (09:00→20:41)
[2017-01-18] MEDS: ASPIRIN 81 MG TAB.CHEW GT SCH (09:00)
[2017-01-18] MEDS: NEOMY SULF/BACITRAC ZN/POLY 15 GM TUBE TP SCH (09:00)
[2017-01-18] MEDS: HYDROGEN PEROXIDE 480 ML BOTTLE TP SCH ×2 (09:00→20:41)
[2017-01-18] MEDS: ASCORBIC ACID 500 MG TABLET GT SCH (09:00)
[2017-01-18] MEDS: VITAMINS A AND D 56.7 GM TUBE TP SCH ×2 (09:00→20:41)
[2017-01-18] MEDS: SENNOSIDES 8.6 MG TABLET GT SCH (09:00)
[2017-01-18] MEDS: PROSOURCE / PROSTAT (PYXIS) 30 ML UDC GT SCH ×2 (09:00→16:40)
[2017-01-18] MEDS: HYDROGEL DRESSING 90 GM TUBE TP SCH ×2 (09:00→20:41)
[2017-01-18] MEDS: LEVETIRACETAM SOL (5 ML) 100 MG/ML UDC GT SCH ×2 (09:00→20:41)
[2017-01-18] MEDS: MVI/MINERALS LIQUID (CEROVITE) GT SCH (09:00)
[2017-01-18] MEDS: SULFAMETH/TRIMETH 800/160 MG 1 UDTAB TABLET PO SCH (09:00)
[2017-01-18 20:20] VITALS: BP 125/64
[2017-01-18] MEDS: GLYTROL 1,000 ML BAG GT PRN (23:49)
[2017-01-19] MEDS: ALBUTEROL FS 2.5 MG/3 ML VIAL.NEB NEB SCH ×6 (03:33→23:31)
[2017-01-19] MEDS: DEXILANT 30 MG GT SCH (05:37)
[2017-01-19] MEDS: BLOOD SUGAR DIAGNOSTIC 1 EACH STRIP IN SCH ×2 (05:37→17:40)
[2017-01-19 07:59] VITALS: BP 121/63
[2017-01-19] MEDS: ACIDOPHILUS/BULGARICUS 1 EACH TAB.CHEW PO SCH ×3 (09:57→17:40)
[2017-01-19] MEDS: SENNOSIDES 8.6 MG TABLET GT SCH (09:57)
[2017-01-19] MEDS: LEVETIRACETAM SOL (5 ML) 100 MG/ML UDC GT SCH ×2 (09:57→20:10)
[2017-01-19] MEDS: ASCORBIC ACID 500 MG TABLET GT SCH (09:57)
[2017-01-19] MEDS: PROSOURCE / PROSTAT (PYXIS) 30 ML UDC GT SCH ×2 (09:57→17:40)
[2017-01-19] MEDS: ASPIRIN 81 MG TAB.CHEW GT SCH (09:57)
[2017-01-19] MEDS: MVI/MINERALS LIQUID (CEROVITE) GT SCH (09:57)
[2017-01-19] MEDS: TRILEPTAL GT SCH ×2 (09:57→20:10)
[2017-01-19] MEDS: CALCIUM CARBONATE 500 MG TAB.CHEW GT SCH ×2 (09:57→17:40)
[2017-01-19] MEDS: Z GUARD REMEDY 4 OZ OINT TP SCH ×2 (16:30→20:10)
[2017-01-19] MEDS: HYDROGEL DRESSING 90 GM TUBE TP SCH ×2 (16:30→20:10)
[2017-01-19] MEDS: HYDROGEN PEROXIDE 480 ML BOTTLE TP SCH ×2 (16:30→20:10)
[2017-01-19] MEDS: VITAMINS A AND D 56.7 GM TUBE TP SCH ×2 (16:30→20:10)
[2017-01-19] MEDS: GLYTROL 1,000 ML BAG GT PRN (18:44)
[2017-01-19 20:32] VITALS: BP_SYST 126; BP_SYST 141; BP_DIAS 70; BP_DIAS 73
[2017-01-20] MEDS: ALBUTEROL FS 2.5 MG/3 ML VIAL.NEB NEB SCH ×6 (04:22→23:18)
[2017-01-20] MEDS: DEXILANT 30 MG GT SCH (05:02)
[2017-01-20] MEDS: BLOOD SUGAR DIAGNOSTIC 1 EACH STRIP IN SCH ×2 (06:02→17:21)
[2017-01-20 07:44] VITALS: BP 117/60
[2017-01-20] MEDS: PROSOURCE / PROSTAT (PYXIS) 30 ML UDC GT SCH ×2 (09:13→17:21)
[2017-01-20] MEDS: CALCIUM CARBONATE 500 MG TAB.CHEW GT SCH ×2 (09:13→17:21)
[2017-01-20] MEDS: TRILEPTAL GT SCH ×2 (09:13→20:18)
[2017-01-20] MEDS: ASCORBIC ACID 500 MG TABLET GT SCH (09:13)
[2017-01-20] MEDS: ASPIRIN 81 MG TAB.CHEW GT SCH (09:13)
[2017-01-20] MEDS: MVI/MINERALS LIQUID (CEROVITE) GT SCH (09:13)
[2017-01-20] MEDS: SENNOSIDES 8.6 MG TABLET GT SCH (09:13)
[2017-01-20] MEDS: LEVETIRACETAM SOL (5 ML) 100 MG/ML UDC GT SCH ×2 (09:13→20:18)
[2017-01-20] MEDS: ACIDOPHILUS/BULGARICUS 1 EACH TAB.CHEW PO SCH ×3 (09:13→17:21)
[2017-01-20] MEDS: HYDROGEL DRESSING 90 GM TUBE TP SCH ×2 (11:00→20:18)
[2017-01-20] MEDS: Z GUARD REMEDY 4 OZ OINT TP SCH ×2 (11:00→20:18)
[2017-01-20] MEDS: HYDROGEN PEROXIDE 480 ML BOTTLE TP SCH ×2 (11:00→20:18)
[2017-01-20] MEDS: VITAMINS A AND D 56.7 GM TUBE TP SCH ×2 (11:00→20:18)
[2017-01-20] MEDS: GLYTROL 1,000 ML BAG GT PRN (13:00)
[2017-01-20 20:53] VITALS: BP 127/65
[2017-01-21] MEDS: ALBUTEROL FS 2.5 MG/3 ML VIAL.NEB NEB SCH ×6 (03:02→23:46)
[2017-01-21] MEDS: DEXILANT 30 MG GT SCH (05:01)
[2017-01-21] MEDS: BLOOD SUGAR DIAGNOSTIC 1 EACH STRIP IN SCH ×2 (05:56→18:25)
[2017-01-21 07:31] VITALS: BP 128/69
[2017-01-21] MEDS: VITAMINS A AND D 56.7 GM TUBE TP SCH ×2 (08:52→21:55)
[2017-01-21] MEDS: ACIDOPHILUS/BULGARICUS 1 EACH TAB.CHEW PO SCH ×3 (08:52→16:41)
[2017-01-21] MEDS: TRILEPTAL GT SCH ×2 (08:52→21:55)
[2017-01-21] MEDS: CALCIUM CARBONATE 500 MG TAB.CHEW GT SCH ×2 (08:52→16:41)
[2017-01-21] MEDS: MVI/MINERALS LIQUID (CEROVITE) GT SCH ×2 (08:52→21:55)
[2017-01-21] MEDS: LEVETIRACETAM SOL (5 ML) 100 MG/ML UDC GT SCH ×2 (08:52→21:55)
[2017-01-21] MEDS: Z GUARD REMEDY 4 OZ OINT TP SCH ×2 (08:52→21:55)
[2017-01-21] MEDS: PROSOURCE / PROSTAT (PYXIS) 30 ML UDC GT SCH ×2 (08:52→16:41)
[2017-01-21] MEDS: ASCORBIC ACID 500 MG TABLET GT SCH ×2 (08:52→21:55)
[2017-01-21] MEDS: SENNOSIDES 8.6 MG TABLET GT SCH ×2 (08:52→21:55)
[2017-01-21] MEDS: ASPIRIN 81 MG TAB.CHEW GT SCH (08:52)
[2017-01-21] MEDS: HYDROGEL DRESSING 90 GM TUBE TP SCH ×2 (08:52→21:55)
[2017-01-21] MEDS: HYDROGEN PEROXIDE 480 ML BOTTLE TP SCH ×2 (08:52→21:55)
[2017-01-21 19:54] VITALS: BP 121/71
[2017-01-21] MEDS: GLYTROL 1,000 ML BAG GT PRN (21:56)
[2017-01-22] MEDS: ALBUTEROL FS 2.5 MG/3 ML VIAL.NEB NEB SCH ×5 (04:00→19:30)
[2017-01-22] MEDS: INSULIN REGULAR, HUMAN 100 UNIT/ML 3 ML VIAL SQ PRN (05:52)
[2017-01-22] MEDS: DEXILANT 30 MG GT SCH (05:52)
[2017-01-22] MEDS: BLOOD SUGAR DIAGNOSTIC 1 EACH STRIP IN SCH ×2 (05:52→17:15)
--- NOTE | 2017-01-22 07:29 | NUR ---
Female pt received on mechanical vent. Pt trach is secure. Vent is plugged into a red outlet, alarms are set and audible, and BVM is at bedside. Addendum: 01/22/17 at 0732 by MARKIE PINO RT Amended: Links added.
[2017-01-22 07:40] VITALS: BP 105/72
[2017-01-22] MEDS: LEVETIRACETAM SOL (5 ML) 100 MG/ML UDC GT SCH ×2 (08:37→21:22)
[2017-01-22] MEDS: TRILEPTAL GT SCH ×2 (08:37→21:22)
[2017-01-22] MEDS: PROSOURCE / PROSTAT (PYXIS) 30 ML UDC GT SCH ×2 (08:37→17:03)
[2017-01-22] MEDS: CALCIUM CARBONATE 500 MG TAB.CHEW GT SCH ×2 (08:37→17:03)
[2017-01-22] MEDS: ACIDOPHILUS/BULGARICUS 1 EACH TAB.CHEW PO SCH ×3 (08:37→17:17)
[2017-01-22] MEDS: ASPIRIN 81 MG TAB.CHEW GT SCH (08:37)
[2017-01-22] MEDS: Z GUARD REMEDY 4 OZ OINT TP SCH ×2 (09:00→21:22)
[2017-01-22] MEDS: VITAMINS A AND D 56.7 GM TUBE TP SCH ×2 (09:00→21:23)
[2017-01-22] MEDS: HYDROGEL DRESSING 90 GM TUBE TP SCH ×2 (09:00→21:22)
[2017-01-22] MEDS: HYDROGEN PEROXIDE 480 ML BOTTLE TP SCH ×2 (09:00→21:22)
[2017-01-22] MEDS: GLYTROL 1,000 ML BAG GT PRN (18:54)
[2017-01-22] MEDS: SENNOSIDES 8.6 MG TABLET GT SCH (21:22)
[2017-01-22] MEDS: MVI/MINERALS LIQUID (CEROVITE) GT SCH (21:22)
[2017-01-22] MEDS: ASCORBIC ACID 500 MG TABLET GT SCH (21:22)
[2017-01-23] MEDS: ALBUTEROL FS 2.5 MG/3 ML VIAL.NEB NEB SCH ×7 (00:06→23:25)
[2017-01-23] MEDS: DEXILANT 30 MG GT SCH (05:18)
[2017-01-23] MEDS: INSULIN REGULAR, HUMAN 100 UNIT/ML 3 ML VIAL SQ PRN (05:18)
[2017-01-23] MEDS: BLOOD SUGAR DIAGNOSTIC 1 EACH STRIP IN SCH ×2 (05:18→17:42)
--- NOTE | 2017-01-23 05:45 | NUR ---
PT AFEBRILE,URINE DRAINING FROM URINARY BAG YELLOWISH IN COLOR,NO SEDIMENTS NOTED.PT STILL WITH SOME SCATTERED RASHES ON BILATERAL LOWER LEGS.WILL CONTINUE TO MONITOR.
[2017-01-23 07:29] VITALS: BP 118/75
[2017-01-23] MEDS: MAGNESIUM HYDROXIDE 30 ML UDC GT PRN (08:04)
[2017-01-23] MEDS: CALCIUM CARBONATE 500 MG TAB.CHEW GT SCH ×2 (08:12→17:42)
[2017-01-23] MEDS: Z GUARD REMEDY 4 OZ OINT TP SCH ×2 (08:12→20:05)
[2017-01-23] MEDS: TRILEPTAL GT SCH ×2 (08:12→20:04)
[2017-01-23] MEDS: ACIDOPHILUS/BULGARICUS 1 EACH TAB.CHEW PO SCH ×3 (08:12→17:42)
[2017-01-23] MEDS: HYDROGEN PEROXIDE 480 ML BOTTLE TP SCH ×2 (08:12→20:05)
[2017-01-23] MEDS: HYDROGEL DRESSING 90 GM TUBE TP SCH ×2 (08:12→20:05)
[2017-01-23] MEDS: LEVETIRACETAM SOL (5 ML) 100 MG/ML UDC GT SCH ×2 (08:12→20:04)
[2017-01-23] MEDS: ASPIRIN 81 MG TAB.CHEW GT SCH (08:12)
[2017-01-23] MEDS: PROSOURCE / PROSTAT (PYXIS) 30 ML UDC GT SCH ×2 (08:12→17:42)
[2017-01-23] MEDS: VITAMINS A AND D 56.7 GM TUBE TP SCH ×2 (08:13→20:05)
--- NOTE | 2017-01-23 14:00 | NUR ---
Resident urine yellow without sediment, afebrile at 98. 3. Dr. Felix said it is OK to take patient in the shower room once clear from isolation.
[2017-01-23 19:40] VITALS: BP 133/96
[2017-01-23] MEDS: SENNOSIDES 8.6 MG TABLET GT SCH (20:04)
[2017-01-23] MEDS: MULTIVIT, IRON, MIN NO. 8, FA 1 TAB GT SCH (20:04)
[2017-01-23] MEDS: ASCORBIC ACID 500 MG TABLET GT SCH (20:04)
[2017-01-24] MEDS: ALBUTEROL FS 2.5 MG/3 ML VIAL.NEB NEB SCH ×6 (02:30→23:45)
[2017-01-24] MEDS: BLOOD SUGAR DIAGNOSTIC 1 EACH STRIP IN SCH ×2 (05:52→18:08)
[2017-01-24] MEDS: DEXILANT 30 MG GT SCH (05:52)
[2017-01-24] MEDS: GLYTROL 1,000 ML BAG GT PRN (05:53)
[2017-01-24] MEDS: INSULIN REGULAR, HUMAN 100 UNIT/ML 3 ML VIAL SQ PRN (05:53)
--- NOTE | 2017-01-24 06:39 | NUR ---
Pt urine noted with some sediments and with streak blood noted.Afebrile.Will continue to monitor.
[2017-01-24 07:36] VITALS: BP 124/75
[2017-01-24] MEDS: ASPIRIN 81 MG TAB.CHEW GT SCH (09:32)
[2017-01-24] MEDS: LEVETIRACETAM SOL (5 ML) 100 MG/ML UDC GT SCH ×2 (09:35→21:30)
[2017-01-24] MEDS: HYDROGEL DRESSING 90 GM TUBE TP SCH ×2 (09:36→21:30)
[2017-01-24] MEDS: CALCIUM CARBONATE 500 MG TAB.CHEW GT SCH ×2 (09:36→17:00)
[2017-01-24] MEDS: PROSOURCE / PROSTAT (PYXIS) 30 ML UDC GT SCH ×2 (09:36→17:00)
[2017-01-24] MEDS: Z GUARD REMEDY 4 OZ OINT TP SCH ×2 (09:36→21:31)
[2017-01-24] MEDS: VITAMINS A AND D 56.7 GM TUBE TP SCH ×2 (09:36→21:31)
[2017-01-24] MEDS: TRILEPTAL GT SCH ×2 (09:36→21:29)
[2017-01-24] MEDS: ACIDOPHILUS/BULGARICUS 1 EACH TAB.CHEW PO SCH ×3 (09:36→17:00)
[2017-01-24] MEDS: HYDROGEN PEROXIDE 480 ML BOTTLE TP SCH ×2 (09:36→21:30)
--- NOTE | 2017-01-24 19:23 | NUR ---
Urine is clear, yellow with no sediments. Noted with streaks of blood in the beginning of the shift and after that no blood noted.
[2017-01-24 20:09] VITALS: BP 126/76
[2017-01-24] MEDS: MULTIVIT, IRON, MIN NO. 8, FA 1 TAB GT SCH (21:30)
[2017-01-24] MEDS: ASCORBIC ACID 500 MG TABLET GT SCH (21:30)
[2017-01-24] MEDS: SENNOSIDES 8.6 MG TABLET GT SCH (21:30)
[2017-01-25] MEDS: ALBUTEROL FS 2.5 MG/3 ML VIAL.NEB NEB SCH ×6 (02:31→23:01)
[2017-01-25] MEDS: DEXILANT 30 MG GT SCH (05:19)
[2017-01-25] MEDS: BLOOD SUGAR DIAGNOSTIC 1 EACH STRIP IN SCH ×2 (05:26→18:26)
--- NOTE | 2017-01-25 06:54 | NUR ---
urine is clear yellow. no sediments and no blood streak noted. will endorse to upcoming nurse.
[2017-01-25 08:32] VITALS: BP 109/60
[2017-01-25] MEDS: LEVETIRACETAM SOL (5 ML) 100 MG/ML UDC GT SCH ×2 (09:00→20:49)
[2017-01-25] MEDS: VITAMINS A AND D 56.7 GM TUBE TP SCH ×2 (09:00→20:50)
[2017-01-25] MEDS: Z GUARD REMEDY 4 OZ OINT TP SCH ×2 (09:00→20:50)
[2017-01-25] MEDS: CALCIUM CARBONATE 500 MG TAB.CHEW GT SCH ×2 (09:00→17:08)
[2017-01-25] MEDS: ASPIRIN 81 MG TAB.CHEW GT SCH (09:00)
[2017-01-25] MEDS: TRILEPTAL GT SCH ×2 (09:00→20:48)
[2017-01-25] MEDS: HYDROGEL DRESSING 90 GM TUBE TP SCH ×2 (09:00→20:50)
[2017-01-25] MEDS: HYDROGEN PEROXIDE 480 ML BOTTLE TP SCH ×2 (09:00→20:50)
[2017-01-25] MEDS: PROSOURCE / PROSTAT (PYXIS) 30 ML UDC GT SCH ×2 (09:00→17:08)
[2017-01-25] MEDS: ACIDOPHILUS/BULGARICUS 1 EACH TAB.CHEW PO SCH ×3 (09:00→17:08)
--- NOTE | 2017-01-25 16:54 | NUR ---
Patient awake, dependent on mechanical vent, suctioned as needed. HOB kept elevated at all times to prevent aspiration. On GT feeding, tolerating well. Incontinent of bowel function, has maher catheter patent and intact draining to yellow urine output with sediments. No blood in urine at this time. Abdomen soft to touch and not distended. No fever noted, no ATB therapy, still on contact isolation, all precautions observed. Patients' sister joe came and visited her today, patients' sister verbalized shes' happy that her sisters' rashes improved. Patient closely monitored.
[2017-01-25] MEDS: INSULIN REGULAR, HUMAN 100 UNIT/ML 3 ML VIAL SQ PRN (18:26)
[2017-01-25] MEDS: GLYTROL 1,000 ML BAG GT PRN (19:08)
[2017-01-25 19:35] VITALS: BP 115/74
[2017-01-25] MEDS: MULTIVIT, IRON, MIN NO. 8, FA 1 TAB GT SCH (20:49)
[2017-01-25] MEDS: SENNOSIDES 8.6 MG TABLET GT SCH (20:49)
[2017-01-25] MEDS: ASCORBIC ACID 500 MG TABLET GT SCH (20:49)
[2017-01-26] MEDS: ALBUTEROL FS 2.5 MG/3 ML VIAL.NEB NEB SCH ×5 (04:10→19:04)
[2017-01-26] MEDS: BLOOD SUGAR DIAGNOSTIC 1 EACH STRIP IN SCH ×2 (05:14→18:52)
[2017-01-26] MEDS: DEXILANT 30 MG GT SCH (05:14)
[2017-01-26 07:54] VITALS: BP 126/71
[2017-01-26] MEDS: ASPIRIN 81 MG TAB.CHEW GT SCH (09:00)
[2017-01-26] MEDS: ACIDOPHILUS/BULGARICUS 1 EACH TAB.CHEW PO SCH ×3 (09:00→17:00)
[2017-01-26] MEDS: TRILEPTAL GT SCH ×2 (09:00→20:10)
[2017-01-26] MEDS: HYDROGEN PEROXIDE 480 ML BOTTLE TP SCH ×2 (09:00→20:11)
[2017-01-26] MEDS: CALCIUM CARBONATE 500 MG TAB.CHEW GT SCH ×2 (09:00→17:00)
[2017-01-26] MEDS: Z GUARD REMEDY 4 OZ OINT TP SCH ×2 (09:00→20:11)
[2017-01-26] MEDS: HYDROGEL DRESSING 90 GM TUBE TP SCH ×2 (09:00→20:11)
[2017-01-26] MEDS: PROSOURCE / PROSTAT (PYXIS) 30 ML UDC GT SCH ×2 (09:00→17:00)
[2017-01-26] MEDS: LEVETIRACETAM SOL (5 ML) 100 MG/ML UDC GT SCH ×2 (09:00→20:10)
[2017-01-26] MEDS: VITAMINS A AND D 56.7 GM TUBE TP SCH ×2 (09:00→20:11)
--- NOTE | 2017-01-26 13:17 | NUR ---
Sister Beckie Chu stated that she wants a haircut for resident. As resident is on isolation, charge nurse will ask TITLE I TEACHER if he is able to cut the resident's hair with the sister present. Beckie stated that she wants the resident's hair to be cut and curled in time for her birthday in April. Charge nurse will endorse to night clerk auditor and staff will keep SW informed so she can coordinate with resident's sister. Beckie also stated that she wants to meet with Dr. Montaño to address left arm swelling and some other questions she has in regards to the resident's progress/barriers. STEPHEN informed him that Dr. Montaño is currently on vacation but SW will talk to arrange an appointment. Per charge nurse, Dr. Montaño will return Friday February 03, 2017. Stephen will follow up.
[2017-01-26] MEDS: INSULIN REGULAR, HUMAN 100 UNIT/ML 3 ML VIAL SQ PRN (18:53)
--- NOTE | 2017-01-26 19:18 | NUR ---
Monitored patient for s/s of infection in the urine: no hematuria noted , urine appeared clear with no sediments noted. pt. is afebrile. the skin rashes are dried in the lower extremities with no itchiness noted. good skin skin care and skin maintenance maintained.
[2017-01-26 19:43] VITALS: BP 113/77
--- NOTE | 2017-01-26 20:00 | NUR ---
RN NOTES Urine yellowish and clear. No s/s of infection, afebrile. Will continue to monitor.
[2017-01-26] MEDS: ASCORBIC ACID 500 MG TABLET GT SCH (20:11)
[2017-01-26] MEDS: MULTIVIT, IRON, MIN NO. 8, FA 1 TAB GT SCH (20:11)
[2017-01-26] MEDS: SENNOSIDES 8.6 MG TABLET GT SCH (20:11)
[2017-01-27] MEDS: ALBUTEROL FS 2.5 MG/3 ML VIAL.NEB NEB SCH ×7 (00:09→23:30)
[2017-01-27] MEDS: BLOOD SUGAR DIAGNOSTIC 1 EACH STRIP IN SCH ×2 (05:12→18:00)
[2017-01-27] MEDS: DEXILANT 30 MG GT SCH (05:12)
--- NOTE | 2017-01-27 06:00 | NUR ---
pts urine is monitored for s/s of infection, pts urine is noted to be in light yellow in color, clear and no sediment as noted, no manifestation of infection. continue to monitor pt for any change of condition.
[2017-01-27] MEDS: GLYTROL 1,000 ML BAG GT PRN ×2 (06:18→21:24)
[2017-01-27 07:41] VITALS: BP 132/75
--- NOTE | 2017-01-27 08:58 | NUR ---
Informed by charge nurse that MANAGER TECHNICAL SALES from [employer] is able to cut resident's hair. Stated that he will contact resident's sister to arrange for a time and date.
[2017-01-27] MEDS: Z GUARD REMEDY 4 OZ OINT TP SCH ×2 (09:00→20:10)
[2017-01-27] MEDS: HYDROGEL DRESSING 90 GM TUBE TP SCH ×2 (09:00→20:10)
[2017-01-27] MEDS: VITAMINS A AND D 56.7 GM TUBE TP SCH ×2 (09:00→20:10)
[2017-01-27] MEDS: HYDROGEN PEROXIDE 480 ML BOTTLE TP SCH ×2 (09:00→20:10)
[2017-01-27] MEDS: TRILEPTAL GT SCH ×2 (09:58→20:09)
[2017-01-27] MEDS: PROSOURCE / PROSTAT (PYXIS) 30 ML UDC GT SCH ×2 (09:58→16:43)
[2017-01-27] MEDS: ASPIRIN 81 MG TAB.CHEW GT SCH (09:58)
[2017-01-27] MEDS: LEVETIRACETAM SOL (5 ML) 100 MG/ML UDC GT SCH ×2 (09:58→20:09)
[2017-01-27] MEDS: ACIDOPHILUS/BULGARICUS 1 EACH TAB.CHEW PO SCH ×3 (09:58→16:43)
[2017-01-27] MEDS: CALCIUM CARBONATE 500 MG TAB.CHEW GT SCH ×2 (09:58→16:43)
--- NOTE | 2017-01-27 16:00 | NUR ---
GINA Maynard reported that pt's sister was applying Neosporin ointment and some cream on pt's skin without a physician's order. Charge nurse spoke with pt's sister and reminded her that according to Dr. Alejo Garcia, lotions or creams should not be applied on the pt's skin (Dr. Dhillon saw pt for rashes). Sister told charge nurse that she is aware of what the doctor said but she still wants to clean her sister according to her own liking, which includes applying the jar of cream she brought, and applying anti-fungal nail pashto on the toenails which she also brought.
--- NOTE | 2017-01-27 18:51 | NUR ---
monitored pt for s/s of urine infection. no manifestations of hematuria, no febrile condition and no sediments noted. also monitored for mrsa rash on bilateral lower extremity : rashes dried and no itchiness noted. good skin care rendered and medication as ordered given. good taj care done.
[2017-01-27] MEDS: INSULIN REGULAR, HUMAN 100 UNIT/ML 3 ML VIAL SQ PRN (19:09)
[2017-01-27 19:52] VITALS: BP 126/72
[2017-01-27] MEDS: SENNOSIDES 8.6 MG TABLET GT SCH (20:09)
[2017-01-27] MEDS: ASCORBIC ACID 500 MG TABLET GT SCH (20:10)
[2017-01-27] MEDS: MULTIVIT, IRON, MIN NO. 8, FA 1 TAB GT SCH (20:10)
[2017-01-28] MEDS: ALBUTEROL FS 2.5 MG/3 ML VIAL.NEB NEB SCH ×6 (03:30→23:58)
[2017-01-28] MEDS: DEXILANT 30 MG GT SCH (05:10)
[2017-01-28] MEDS: BLOOD SUGAR DIAGNOSTIC 1 EACH STRIP IN SCH ×2 (05:11→18:23)
[2017-01-28 07:52] VITALS: BP 128/75
[2017-01-28] MEDS: ASPIRIN 81 MG TAB.CHEW GT SCH (09:10)
[2017-01-28] MEDS: ACIDOPHILUS/BULGARICUS 1 EACH TAB.CHEW PO SCH ×3 (09:10→17:50)
[2017-01-28] MEDS: TRILEPTAL GT SCH ×2 (09:10→21:21)
[2017-01-28] MEDS: LEVETIRACETAM SOL (5 ML) 100 MG/ML UDC GT SCH ×2 (09:10→21:21)
[2017-01-28] MEDS: VITAMINS A AND D 56.7 GM TUBE TP SCH ×2 (09:10→21:30)
[2017-01-28] MEDS: Z GUARD REMEDY 4 OZ OINT TP SCH ×2 (09:10→21:29)
[2017-01-28] MEDS: HYDROGEN PEROXIDE 480 ML BOTTLE TP SCH ×2 (09:10→21:25)
[2017-01-28] MEDS: HYDROGEL DRESSING 90 GM TUBE TP SCH ×2 (09:10→21:30)
[2017-01-28] MEDS: CALCIUM CARBONATE 500 MG TAB.CHEW GT SCH ×2 (09:10→17:49)
[2017-01-28] MEDS: PROSOURCE / PROSTAT (PYXIS) 30 ML UDC GT SCH ×2 (09:10→17:49)
--- NOTE | 2017-01-28 12:15 | NUR ---
Seen and examined by Alicia Castillo, NAN, ID no new order ghiven at this time. Resident's urine clear, free of sediment, no hematuria. F/C care rendered PRN.
--- NOTE | 2017-01-28 15:29 | NUR ---
maher catheter intact and patent; draining well with clear yellow urine. no sediments noted. no s/s of infections. no signs of bleeding noted. good pericare done.
--- NOTE | 2017-01-28 18:00 | NUR ---
Resident's sister, Beckie at the bedside. She said that with regards to the cream, lotion that she is applying to her sister's body, she wants to continue to apply the cream to her liking. Informed her that while she wants to apply Neosporin patient's skin and antifungal medication to patient's feet, we have to get an order from the doctor. In addition, over the counter medication cannot be left at the bedside. Beckie understood and she took anti-fungal and Neosporin ointment, and one body cream home. She is aware that patient has her monthly period and therefore not too cooperative with her sister at this time. Endorsed to get resident up in the gerichair in AM, her sacral wound looking much better
[2017-01-28 19:39] VITALS: BP 135/69
[2017-01-28] MEDS: MULTIVIT, IRON, MIN NO. 8, FA 1 TAB GT SCH (21:21)
[2017-01-28] MEDS: ASCORBIC ACID 500 MG TABLET GT SCH (21:21)
[2017-01-28] MEDS: SENNOSIDES 8.6 MG TABLET GT SCH (21:21)
[2017-01-29] MEDS: ALBUTEROL FS 2.5 MG/3 ML VIAL.NEB NEB SCH ×6 (02:33→23:27)
--- NOTE | 2017-01-29 05:50 | NUR ---
Pt awake but calm, without any sign of discomfort noted. Bourgeois cath intact and patent with clear, yellow output draining from catheter. No sign of bleeding noted. AM care done. Good taj care provided. HOB. Will continue to monitor.
[2017-01-29] MEDS: DEXILANT 30 MG GT SCH (05:54)
[2017-01-29] MEDS: INSULIN REGULAR, HUMAN 100 UNIT/ML 3 ML VIAL SQ PRN (05:54)
[2017-01-29] MEDS: BLOOD SUGAR DIAGNOSTIC 1 EACH STRIP IN SCH ×2 (05:54→18:44)
[2017-01-29] MEDS: GLYTROL 1,000 ML BAG GT PRN (06:50)
[2017-01-29 07:54] VITALS: BP 153/87
[2017-01-29] MEDS: VITAMINS A AND D 56.7 GM TUBE TP SCH ×2 (09:00→21:05)
[2017-01-29] MEDS: CALCIUM CARBONATE 500 MG TAB.CHEW GT SCH ×2 (09:00→17:00)
[2017-01-29] MEDS: Z GUARD REMEDY 4 OZ OINT TP SCH ×2 (09:00→21:05)
[2017-01-29] MEDS: PROSOURCE / PROSTAT (PYXIS) 30 ML UDC GT SCH ×2 (09:00→17:00)
[2017-01-29] MEDS: ASPIRIN 81 MG TAB.CHEW GT SCH (09:00)
[2017-01-29] MEDS: LEVETIRACETAM SOL (5 ML) 100 MG/ML UDC GT SCH ×2 (09:00→21:04)
[2017-01-29] MEDS: HYDROGEL DRESSING 90 GM TUBE TP SCH ×2 (09:00→21:04)
[2017-01-29] MEDS: HYDROGEN PEROXIDE 480 ML BOTTLE TP SCH ×2 (09:00→21:04)
[2017-01-29] MEDS: ACIDOPHILUS/BULGARICUS 1 EACH TAB.CHEW PO SCH ×3 (09:00→17:00)
[2017-01-29] MEDS: TRILEPTAL GT SCH ×2 (09:00→21:04)
[2017-01-29] MEDS: MAGNESIUM HYDROXIDE 30 ML UDC GT PRN (18:44)
[2017-01-29 19:13] VITALS: BP 125/73
--- NOTE | 2017-01-29 19:24 | NUR ---
Resident awake, calm and relax, no SOB noted during shift, afebrile, maher catheter draining well and intact, noted urine light yellow color with some sediments, good perineal care provide, kept skin dry and clean at all times, continue monitoring for any changes.
[2017-01-29] MEDS: ASCORBIC ACID 500 MG TABLET GT SCH (21:04)
[2017-01-29] MEDS: SENNOSIDES 8.6 MG TABLET GT SCH (21:04)
[2017-01-29] MEDS: MULTIVIT, IRON, MIN NO. 8, FA 1 TAB GT SCH (21:04)
[2017-01-30] MEDS: GLYTROL 1,000 ML BAG GT PRN ×2 (02:39→17:20)
[2017-01-30] MEDS: ALBUTEROL FS 2.5 MG/3 ML VIAL.NEB NEB SCH ×4 (03:09→19:52)
[2017-01-30] MEDS: BLOOD SUGAR DIAGNOSTIC 1 EACH STRIP IN SCH ×2 (05:45→17:20)
[2017-01-30] MEDS: DEXILANT 30 MG GT SCH (05:45)
[2017-01-30] MEDS: INSULIN REGULAR, HUMAN 100 UNIT/ML 3 ML VIAL SQ PRN (05:45)
--- NOTE | 2017-01-30 07:12 | NUR ---
Female pt received on mechanical vent. Pt trach is secure. Vent is plugged into a red outlet, alarms are set and audible, and BVM is at bedside. Addendum: 01/30/17 at 0713 by MARKIE PINO RT Amended: Links added.
[2017-01-30 07:41] VITALS: BP 127/69
[2017-01-30] MEDS: PROSOURCE / PROSTAT (PYXIS) 30 ML UDC GT SCH ×2 (09:05→17:20)
[2017-01-30] MEDS: ACIDOPHILUS/BULGARICUS 1 EACH TAB.CHEW PO SCH ×3 (09:05→17:20)
[2017-01-30] MEDS: ASPIRIN 81 MG TAB.CHEW GT SCH (09:05)
[2017-01-30] MEDS: CALCIUM CARBONATE 500 MG TAB.CHEW GT SCH ×2 (09:05→17:20)
[2017-01-30] MEDS: LEVETIRACETAM SOL (5 ML) 100 MG/ML UDC GT SCH ×2 (09:05→21:15)
[2017-01-30] MEDS: TRILEPTAL GT SCH ×2 (09:05→21:15)
[2017-01-30] MEDS: HYDROGEL DRESSING 90 GM TUBE TP SCH ×2 (09:06→21:16)
[2017-01-30] MEDS: Z GUARD REMEDY 4 OZ OINT TP SCH ×2 (09:06→21:16)
[2017-01-30] MEDS: HYDROGEN PEROXIDE 480 ML BOTTLE TP SCH ×2 (09:06→21:16)
[2017-01-30] MEDS: VITAMINS A AND D 56.7 GM TUBE TP SCH ×2 (09:06→21:16)
--- NOTE | 2017-01-30 13:59 | NUR ---
IDT meeting held, family unable to attend. Reviewed medications, labs and current orders. It was mentioned in the meeting resident's urine yellow, no hematuria but need MD documentation to discontinue isolation. Patient also on isolation for MRSA of the leg rashes. According to Dr. Felix he will assess resident's skin on Thursday and will determine if she is asymptomatic and will d/c isolation. Endorsed.
[2017-01-30 19:18] VITALS: BP 134/77
--- NOTE | 2017-01-30 19:30 | NUR ---
Resident afebrile, no SOB noted during shift, maher catheter draining well and intact, urine output light yellow with no hematuria, some sediments noted at this time, good perineal care provided, observed contact isolation precaution during care at all times.
[2017-01-30] MEDS: MULTIVIT, IRON, MIN NO. 8, FA 1 TAB GT SCH (21:15)
[2017-01-30] MEDS: ASCORBIC ACID 500 MG TABLET GT SCH (21:15)
[2017-01-30] MEDS: SENNOSIDES 8.6 MG TABLET GT SCH (21:15)
[2017-01-31] MEDS: ALBUTEROL FS 2.5 MG/3 ML VIAL.NEB NEB SCH ×4 (01:58→19:52)
[2017-01-31] MEDS: BLOOD SUGAR DIAGNOSTIC 1 EACH STRIP IN SCH ×2 (05:50→17:58)
[2017-01-31] MEDS: INSULIN REGULAR, HUMAN 100 UNIT/ML 3 ML VIAL SQ PRN (05:50)
[2017-01-31] MEDS: DEXILANT 30 MG GT SCH (05:50)
--- NOTE | 2017-01-31 06:30 | NUR ---
Resident asleep, appears calm and comfortable. Bourgeois cath intact and patent with light yellow urine output noted. Slight sediments also noted, no hematuria observed at this time. Good perineal care provided. Remains in contact isolation.
[2017-01-31 07:33] VITALS: BP 138/78
[2017-01-31] MEDS: LEVETIRACETAM SOL (5 ML) 100 MG/ML UDC GT SCH ×2 (09:36→20:18)
[2017-01-31] MEDS: VITAMINS A AND D 56.7 GM TUBE TP SCH ×2 (09:36→20:19)
[2017-01-31] MEDS: Z GUARD REMEDY 4 OZ OINT TP SCH ×2 (09:36→20:18)
[2017-01-31] MEDS: ACIDOPHILUS/BULGARICUS 1 EACH TAB.CHEW PO SCH ×3 (09:36→17:58)
[2017-01-31] MEDS: PROSOURCE / PROSTAT (PYXIS) 30 ML UDC GT SCH ×2 (09:36→17:58)
[2017-01-31] MEDS: ASPIRIN 81 MG TAB.CHEW GT SCH (09:36)
[2017-01-31] MEDS: TRILEPTAL GT SCH ×2 (09:36→20:18)
[2017-01-31] MEDS: HYDROGEN PEROXIDE 480 ML BOTTLE TP SCH ×2 (09:36→20:18)
[2017-01-31] MEDS: CALCIUM CARBONATE 500 MG TAB.CHEW GT SCH ×2 (09:36→17:58)
[2017-01-31] MEDS: HYDROGEL DRESSING 90 GM TUBE TP SCH ×2 (09:36→21:03)
[2017-01-31] MEDS: GLYTROL 1,000 ML BAG GT PRN (13:31)
--- NOTE | 2017-01-31 18:50 | NUR ---
Resident calm and relax, no SOB noted, observed contact isolation for MRSA and ESBL urine during care, proper hand washing done before and after care, maher catheter intact and draining well with yellow colored urine, some sediments noted with no hematuria, good perineal care provided
[2017-01-31 19:33] VITALS: BP 146/56
[2017-01-31] MEDS: SENNOSIDES 8.6 MG TABLET GT SCH (20:18)
[2017-01-31] MEDS: ASCORBIC ACID 500 MG TABLET GT SCH (20:18)
[2017-01-31] MEDS: MULTIVIT, IRON, MIN NO. 8, FA 1 TAB GT SCH (21:03)
[2017-02-01] MEDS: ALBUTEROL FS 2.5 MG/3 ML VIAL.NEB NEB SCH ×4 (02:29→19:44)
[2017-02-01] MEDS: DEXILANT 30 MG GT SCH (05:15)
[2017-02-01] MEDS: INSULIN REGULAR, HUMAN 100 UNIT/ML 3 ML VIAL SQ PRN ×2 (05:15→17:45)
[2017-02-01] MEDS: BLOOD SUGAR DIAGNOSTIC 1 EACH STRIP IN SCH ×2 (05:15→17:44)
--- NOTE | 2017-02-01 06:38 | NUR ---
Urine is cloudy with sediments. will cont to monitor.
[2017-02-01 07:48] VITALS: BP 109/70
[2017-02-01] MEDS: VITAMINS A AND D 56.7 GM TUBE TP SCH ×2 (09:00→20:21)
[2017-02-01] MEDS: LEVETIRACETAM SOL (5 ML) 100 MG/ML UDC GT SCH ×2 (09:00→20:20)
[2017-02-01] MEDS: ASPIRIN 81 MG TAB.CHEW GT SCH (09:00)
[2017-02-01] MEDS: HYDROGEL DRESSING 90 GM TUBE TP SCH ×2 (09:00→20:20)
[2017-02-01] MEDS: PROSOURCE / PROSTAT (PYXIS) 30 ML UDC GT SCH ×2 (09:00→17:10)
[2017-02-01] MEDS: TRILEPTAL GT SCH ×2 (09:00→20:20)
[2017-02-01] MEDS: Z GUARD REMEDY 4 OZ OINT TP SCH ×2 (09:00→20:20)
[2017-02-01] MEDS: CALCIUM CARBONATE 500 MG TAB.CHEW GT SCH ×2 (09:00→17:10)
[2017-02-01] MEDS: HYDROGEN PEROXIDE 480 ML BOTTLE TP SCH ×2 (09:00→20:20)
[2017-02-01] MEDS: ACIDOPHILUS/BULGARICUS 1 EACH TAB.CHEW PO SCH ×3 (09:00→17:10)
[2017-02-01] MEDS: GLYTROL 1,000 ML BAG GT PRN (11:37)
[2017-02-01 19:45] VITALS: BP 87/55
[2017-02-01] MEDS: ASCORBIC ACID 500 MG TABLET GT SCH (20:20)
[2017-02-01] MEDS: MULTIVIT, IRON, MIN NO. 8, FA 1 TAB GT SCH (20:20)
[2017-02-01] MEDS: SENNOSIDES 8.6 MG TABLET GT SCH (20:20)
[2017-02-02] MEDS: ALBUTEROL FS 2.5 MG/3 ML VIAL.NEB NEB SCH ×4 (02:12→20:10)
[2017-02-02] MEDS: GLYTROL 1,000 ML BAG GT PRN ×2 (03:50→19:01)
[2017-02-02] MEDS: BLOOD SUGAR DIAGNOSTIC 1 EACH STRIP IN SCH ×2 (05:14→18:19)
[2017-02-02] MEDS: DEXILANT 30 MG GT SCH (05:14)
[2017-02-02 07:49] VITALS: BP 133/71
[2017-02-02] MEDS: PROSOURCE / PROSTAT (PYXIS) 30 ML UDC GT SCH ×2 (09:08→17:24)
[2017-02-02] MEDS: ASPIRIN 81 MG TAB.CHEW GT SCH (09:08)
[2017-02-02] MEDS: TRILEPTAL GT SCH ×2 (09:08→20:02)
[2017-02-02] MEDS: LEVETIRACETAM SOL (5 ML) 100 MG/ML UDC GT SCH ×2 (09:08→20:02)
[2017-02-02] MEDS: ACIDOPHILUS/BULGARICUS 1 EACH TAB.CHEW PO SCH ×3 (09:08→17:24)
[2017-02-02] MEDS: CALCIUM CARBONATE 500 MG TAB.CHEW GT SCH ×2 (09:08→17:24)
[2017-02-02] MEDS: VITAMINS A AND D 56.7 GM TUBE TP SCH ×2 (09:09→20:09)
[2017-02-02] MEDS: Z GUARD REMEDY 4 OZ OINT TP SCH ×2 (09:09→20:09)
[2017-02-02] MEDS: HYDROGEN PEROXIDE 480 ML BOTTLE TP SCH ×2 (09:09→20:09)
[2017-02-02] MEDS: HYDROGEL DRESSING 90 GM TUBE TP SCH ×2 (09:09→20:08)
--- NOTE | 2017-02-02 10:11 | NUR ---
Pt was seen by Dr. Felix. He examined pt's rashes and ordered Bactrim DS 1 tablet via GT BID for 14 days. He also ordered to do BMP today and q week while pt is on Bactrim. Notified pt's sister.
[2017-02-02 11:19] LABS: CALCIUM, SERUM 9.1 mg/dL (8.5-10.1); CREATININE 1.6 mg/dL (0.6-1.3); POTASSIUM 3.4 mmol/L (3.5-5.1)
[2017-02-02] MEDS: SULFAMETH/TRIMETH 800/160 MG 1 UDTAB TABLET PO SCH ×2 (11:55→23:46)
--- NOTE | 2017-02-02 14:18 | NUR ---
Informed by Karina (Hairdresser) that she cannot cut the resident's hair unless the sister is willing to provide the equipment. Kraina said that it is difficult with isolation as she uses her equipment across all resident's. Resident's sister was informed and stated "it's okay I will cut her hair myself, I just need someone to move her and help me." SW stated that this is not a problem and that staff members will be available to help position her. Sister stated that she will do it before her birthday in April. SW will also follow up if isolation is discontinued. Charge nurse informed.
--- NOTE | 2017-02-02 17:05 | NUR ---
Relayed K 3.[address] Felix. Received order to give KCl 40 mEq via GT x 1 for hypokalemia.
[2017-02-02] MEDS ORDERED: POTASSIUM CHLORIDE 20 MEQ POWDER PACKET GT ONE ×2 (17:30→19:30)
[2017-02-02] MEDS: INSULIN REGULAR, HUMAN 100 UNIT/ML 3 ML VIAL SQ PRN (18:20)
[2017-02-02 19:50] VITALS: BP 141/76
[2017-02-02] MEDS: SENNOSIDES 8.6 MG TABLET GT SCH (20:08)
[2017-02-02] MEDS: ASCORBIC ACID 500 MG TABLET GT SCH (20:08)
[2017-02-02] MEDS: MULTIVIT, IRON, MIN NO. 8, FA 1 TAB GT SCH (20:08)
[2017-02-03] MEDS: ALBUTEROL FS 2.5 MG/3 ML VIAL.NEB NEB SCH ×4 (02:17→19:45)
[2017-02-03] MEDS: DEXILANT 30 MG GT SCH (05:10)
[2017-02-03] MEDS: BLOOD SUGAR DIAGNOSTIC 1 EACH STRIP IN SCH ×2 (05:10→17:21)
[2017-02-03 07:39] VITALS: BP 117/73
[2017-02-03] MEDS: Z GUARD REMEDY 4 OZ OINT TP SCH ×2 (08:47→20:10)
[2017-02-03] MEDS: TRILEPTAL GT SCH ×2 (08:47→20:08)
[2017-02-03] MEDS: ACIDOPHILUS/BULGARICUS 1 EACH TAB.CHEW PO SCH ×3 (08:47→17:21)
[2017-02-03] MEDS: CALCIUM CARBONATE 500 MG TAB.CHEW GT SCH ×2 (08:47→17:21)
[2017-02-03] MEDS: HYDROGEL DRESSING 90 GM TUBE TP SCH ×2 (08:47→20:09)
[2017-02-03] MEDS: ASPIRIN 81 MG TAB.CHEW GT SCH (08:47)
[2017-02-03] MEDS: HYDROGEN PEROXIDE 480 ML BOTTLE TP SCH ×2 (08:47→20:09)
[2017-02-03] MEDS: PROSOURCE / PROSTAT (PYXIS) 30 ML UDC GT SCH ×2 (08:47→17:21)
[2017-02-03] MEDS: LEVETIRACETAM SOL (5 ML) 100 MG/ML UDC GT SCH ×2 (08:47→20:08)
[2017-02-03] MEDS: VITAMINS A AND D 56.7 GM TUBE TP SCH ×2 (08:48→20:10)
[2017-02-03] MEDS: SULFAMETH/TRIMETH 800/160 MG 1 UDTAB TABLET PO SCH (11:43)
[2017-02-03] MEDS: GLYTROL 1,000 ML BAG GT PRN (13:57)
[2017-02-03] MEDS: SULFAMEHOX/TRIMETH 200-40MG/ 5 ML UDC GT SCH (17:21)
[2017-02-03] MEDS: INSULIN REGULAR, HUMAN 100 UNIT/ML 3 ML VIAL SQ PRN (17:21)
[2017-02-03 20:01] VITALS: BP 144/75
[2017-02-03] MEDS: SENNOSIDES 8.6 MG TABLET GT SCH (20:08)
[2017-02-03] MEDS: MULTIVIT, IRON, MIN NO. 8, FA 1 TAB GT SCH (20:09)
[2017-02-03] MEDS: ASCORBIC ACID 500 MG TABLET GT SCH (20:09)
[2017-02-04] MEDS: ALBUTEROL FS 2.5 MG/3 ML VIAL.NEB NEB SCH ×4 (01:37→19:39)
[2017-02-04] MEDS: DEXILANT 30 MG GT SCH (05:05)
[2017-02-04] MEDS: GLYTROL 1,000 ML BAG GT PRN ×2 (05:05→21:23)
[2017-02-04] MEDS: BLOOD SUGAR DIAGNOSTIC 1 EACH STRIP IN SCH ×2 (05:11→17:59)
[2017-02-04 07:56] VITALS: BP 121/67
[2017-02-04] MEDS: LEVETIRACETAM SOL (5 ML) 100 MG/ML UDC GT SCH ×2 (09:29→21:22)
[2017-02-04] MEDS: TRILEPTAL GT SCH ×2 (09:29→21:22)
[2017-02-04] MEDS: Z GUARD REMEDY 4 OZ OINT TP SCH ×2 (09:29→21:22)
[2017-02-04] MEDS: HYDROGEL DRESSING 90 GM TUBE TP SCH ×2 (09:29→21:22)
[2017-02-04] MEDS: ACIDOPHILUS/BULGARICUS 1 EACH TAB.CHEW PO SCH ×3 (09:29→17:59)
[2017-02-04] MEDS: PROSOURCE / PROSTAT (PYXIS) 30 ML UDC GT SCH ×2 (09:29→17:59)
[2017-02-04] MEDS: ASPIRIN 81 MG TAB.CHEW GT SCH (09:29)
[2017-02-04] MEDS: SULFAMEHOX/TRIMETH 200-40MG/ 5 ML UDC GT SCH ×2 (09:29→17:59)
[2017-02-04] MEDS: CALCIUM CARBONATE 500 MG TAB.CHEW GT SCH ×2 (09:29→17:59)
[2017-02-04] MEDS: HYDROGEN PEROXIDE 480 ML BOTTLE TP SCH ×2 (09:29→21:22)
[2017-02-04] MEDS: VITAMINS A AND D 56.7 GM TUBE TP SCH ×2 (09:29→21:22)
[2017-02-04 19:39] VITALS: BP 127/77
[2017-02-04] MEDS: ASCORBIC ACID 500 MG TABLET GT SCH (21:22)
[2017-02-04] MEDS: SENNOSIDES 8.6 MG TABLET GT SCH (21:22)
[2017-02-04] MEDS: MULTIVIT, IRON, MIN NO. 8, FA 1 TAB GT SCH (21:22)
[2017-02-04] MEDS: MAGNESIUM HYDROXIDE 30 ML UDC GT PRN (21:23)
[2017-02-05] MEDS: ALBUTEROL FS 2.5 MG/3 ML VIAL.NEB NEB SCH ×4 (01:40→20:04)
[2017-02-05] MEDS: DEXILANT 30 MG GT SCH (05:38)
[2017-02-05] MEDS: BLOOD SUGAR DIAGNOSTIC 1 EACH STRIP IN SCH ×2 (05:38→18:07)
[2017-02-05] MEDS: INSULIN REGULAR, HUMAN 100 UNIT/ML 3 ML VIAL SQ PRN (05:38)
[2017-02-05 07:40] VITALS: BP 118/62
[2017-02-05] MEDS: VITAMINS A AND D 56.7 GM TUBE TP SCH ×2 (09:00→21:20)
[2017-02-05] MEDS: HYDROGEL DRESSING 90 GM TUBE TP SCH ×2 (09:00→21:20)
[2017-02-05] MEDS: CALCIUM CARBONATE 500 MG TAB.CHEW GT SCH ×2 (09:00→17:00)
[2017-02-05] MEDS: ACIDOPHILUS/BULGARICUS 1 EACH TAB.CHEW PO SCH ×3 (09:00→17:00)
[2017-02-05] MEDS: PROSOURCE / PROSTAT (PYXIS) 30 ML UDC GT SCH ×2 (09:00→17:00)
[2017-02-05] MEDS: LEVETIRACETAM SOL (5 ML) 100 MG/ML UDC GT SCH ×2 (09:00→21:20)
[2017-02-05] MEDS: ASPIRIN 81 MG TAB.CHEW GT SCH (09:00)
[2017-02-05] MEDS: TRILEPTAL GT SCH ×2 (09:00→21:20)
[2017-02-05] MEDS: HYDROGEN PEROXIDE 480 ML BOTTLE TP SCH ×2 (09:00→21:20)
[2017-02-05] MEDS: SULFAMEHOX/TRIMETH 200-40MG/ 5 ML UDC GT SCH ×2 (09:00→17:00)
[2017-02-05] MEDS: Z GUARD REMEDY 4 OZ OINT TP SCH ×2 (09:00→21:20)
[2017-02-05] MEDS: GLYTROL 1,000 ML BAG GT PRN (18:06)
[2017-02-05] MEDS: BISACODYL SUPP (10 MG) 10 MG/SUPP.RECT SUPP.RECT RC PRN (18:06)
[2017-02-05 20:59] VITALS: BP 113/56
[2017-02-05] MEDS: MAGNESIUM HYDROXIDE 30 ML UDC GT PRN (21:20)
[2017-02-05] MEDS: ASCORBIC ACID 500 MG TABLET GT SCH (21:20)
[2017-02-05] MEDS: SENNOSIDES 8.6 MG TABLET GT SCH (21:20)
[2017-02-05] MEDS: MULTIVIT, IRON, MIN NO. 8, FA 1 TAB GT SCH (21:20)
[2017-02-06] MEDS: ALBUTEROL FS 2.5 MG/3 ML VIAL.NEB NEB SCH ×4 (02:16→19:10)
[2017-02-06] MEDS: BLOOD SUGAR DIAGNOSTIC 1 EACH STRIP IN SCH ×2 (05:23→18:25)
[2017-02-06] MEDS: DEXILANT 30 MG GT SCH (05:23)
[2017-02-06] MEDS: INSULIN REGULAR, HUMAN 100 UNIT/ML 3 ML VIAL SQ PRN (05:24)
[2017-02-06 07:39] VITALS: BP 133/82
[2017-02-06] MEDS: PROSOURCE / PROSTAT (PYXIS) 30 ML UDC GT SCH ×2 (09:00→17:00)
[2017-02-06] MEDS: ACIDOPHILUS/BULGARICUS 1 EACH TAB.CHEW PO SCH ×3 (09:00→17:00)
[2017-02-06] MEDS: LEVETIRACETAM SOL (5 ML) 100 MG/ML UDC GT SCH ×2 (09:00→21:00)
[2017-02-06] MEDS: HYDROGEL DRESSING 90 GM TUBE TP SCH ×2 (09:00→21:00)
[2017-02-06] MEDS: ASPIRIN 81 MG TAB.CHEW GT SCH (09:00)
[2017-02-06] MEDS: SULFAMEHOX/TRIMETH 200-40MG/ 5 ML UDC GT SCH ×2 (09:00→17:00)
[2017-02-06] MEDS: HYDROGEN PEROXIDE 480 ML BOTTLE TP SCH ×2 (09:00→21:00)
[2017-02-06] MEDS: TRILEPTAL GT SCH ×2 (09:00→21:00)
[2017-02-06] MEDS: CALCIUM CARBONATE 500 MG TAB.CHEW GT SCH ×2 (09:00→17:00)
[2017-02-06] MEDS: VITAMINS A AND D 56.7 GM TUBE TP SCH ×2 (09:00→21:01)
[2017-02-06] MEDS: Z GUARD REMEDY 4 OZ OINT TP SCH ×2 (09:00→21:00)
--- NOTE | 2017-02-06 16:07 | NUR ---
Sister Beckie is requesting to meet with subacute qualitative field project manager due to concerns. Per qualitative field project manager, she can meet with her on Thursday at 11AM. Beckie agreed to meet with qualitative field project manager at this time.
--- NOTE | 2017-02-06 16:30 | NUR ---
Resident's sister visiting, expressed concern about patient's skin. She claims that staff does not clean patient properly. Explained to Beckie, (sister) that patient is given bedbath Q shift and if she thinks that there are areas in the patient's body that needed more attention, to bring it up to the KEEPER HELPER assigned or CN so it can be endorsed. It was also explained that patient has dry and scaly skin. She stated that she is using a home remedy cream that works for her. Advised to bring a new bottle so we can get an order from the doctor & verify it from pharmacy if it works. She also mentioned to call her when patient is running out of body wash. Family prefers to provide own body wash. She also mentioned that patient is able to scratch self and suggested that we use hospital gloves. Suggested to file her nails instead. Further explained to Beckie regarding patient's isolation and current ATB therapy. Appreciated the information given.
[2017-02-06] MEDS: GLYTROL 1,000 ML BAG GT PRN (18:25)
[2017-02-06 19:22] VITALS: BP 115/62
[2017-02-06] MEDS: SENNOSIDES 8.6 MG TABLET GT SCH (21:00)
[2017-02-06] MEDS: MULTIVIT, IRON, MIN NO. 8, FA 1 TAB GT SCH (21:00)
[2017-02-06] MEDS: ASCORBIC ACID 500 MG TABLET GT SCH (21:00)
[2017-02-06] MEDS: diphenhydrAMINE HCL ELIX 25 MG/10 ML UDC GT PRN (21:01)
[2017-02-07] MEDS: ALBUTEROL FS 2.5 MG/3 ML VIAL.NEB NEB SCH ×4 (01:09→20:17)
[2017-02-07] MEDS: INSULIN REGULAR, HUMAN 100 UNIT/ML 3 ML VIAL SQ PRN (05:20)
[2017-02-07] MEDS: DEXILANT 30 MG GT SCH (05:20)
[2017-02-07] MEDS: MAGNESIUM HYDROXIDE 30 ML UDC GT PRN (05:20)
[2017-02-07] MEDS: BLOOD SUGAR DIAGNOSTIC 1 EACH STRIP IN SCH ×2 (05:20→18:10)
[2017-02-07 07:29] VITALS: BP 127/75
[2017-02-07] MEDS: LEVETIRACETAM SOL (5 ML) 100 MG/ML UDC GT SCH ×2 (09:58→20:47)
[2017-02-07] MEDS: Z GUARD REMEDY 4 OZ OINT TP SCH ×2 (09:58→21:00)
[2017-02-07] MEDS: PROSOURCE / PROSTAT (PYXIS) 30 ML UDC GT SCH ×2 (09:58→17:00)
[2017-02-07] MEDS: SULFAMEHOX/TRIMETH 200-40MG/ 5 ML UDC GT SCH ×2 (09:58→17:00)
[2017-02-07] MEDS: CALCIUM CARBONATE 500 MG TAB.CHEW GT SCH ×2 (09:58→17:00)
[2017-02-07] MEDS: VITAMINS A AND D 56.7 GM TUBE TP SCH ×2 (09:58→21:00)
[2017-02-07] MEDS: HYDROGEL DRESSING 90 GM TUBE TP SCH ×2 (09:58→21:00)
[2017-02-07] MEDS: ACIDOPHILUS/BULGARICUS 1 EACH TAB.CHEW PO SCH ×3 (09:58→17:00)
[2017-02-07] MEDS: ASPIRIN 81 MG TAB.CHEW GT SCH (09:58)
[2017-02-07] MEDS: TRILEPTAL GT SCH ×2 (09:58→20:47)
[2017-02-07] MEDS: HYDROGEN PEROXIDE 480 ML BOTTLE TP SCH ×2 (09:58→21:00)
[2017-02-07 19:35] VITALS: BP 133/77
[2017-02-07] MEDS: ASCORBIC ACID 500 MG TABLET GT SCH (20:47)
[2017-02-07] MEDS: SENNOSIDES 8.6 MG TABLET GT SCH (20:47)
[2017-02-07] MEDS: MULTIVIT, IRON, MIN NO. 8, FA 1 TAB GT SCH (20:47)
[2017-02-08] MEDS: ALBUTEROL FS 2.5 MG/3 ML VIAL.NEB NEB SCH ×4 (02:21→19:51)
[2017-02-08] MEDS: GLYTROL 1,000 ML BAG GT PRN ×2 (03:20→22:27)
[2017-02-08] MEDS: BLOOD SUGAR DIAGNOSTIC 1 EACH STRIP IN SCH ×2 (05:50→18:19)
[2017-02-08] MEDS: DEXILANT 30 MG GT SCH (05:50)
[2017-02-08] MEDS: INSULIN REGULAR, HUMAN 100 UNIT/ML 3 ML VIAL SQ PRN ×2 (05:50→18:20)
[2017-02-08 07:38] VITALS: BP 130/75
--- NOTE | 2017-02-08 08:45 | NUR ---
Seen and examined by Dr. Felix, NNO given. Resident continue on ATB Bactrim DS for MRSA of the leg rashes. No adverse reaction noted. Total care provided.
[2017-02-08] MEDS: TRILEPTAL GT SCH ×2 (09:00→20:18)
[2017-02-08] MEDS: HYDROGEL DRESSING 90 GM TUBE TP SCH ×2 (09:00→20:18)
[2017-02-08] MEDS: Z GUARD REMEDY 4 OZ OINT TP SCH ×2 (09:00→20:19)
[2017-02-08] MEDS: VITAMINS A AND D 56.7 GM TUBE TP SCH ×2 (09:00→20:19)
[2017-02-08] MEDS: ACIDOPHILUS/BULGARICUS 1 EACH TAB.CHEW PO SCH ×3 (09:00→17:13)
[2017-02-08] MEDS: LEVETIRACETAM SOL (5 ML) 100 MG/ML UDC GT SCH ×2 (09:00→20:18)
[2017-02-08] MEDS: CALCIUM CARBONATE 500 MG TAB.CHEW GT SCH ×2 (09:00→17:13)
[2017-02-08] MEDS: PROSOURCE / PROSTAT (PYXIS) 30 ML UDC GT SCH ×2 (09:00→17:13)
[2017-02-08] MEDS: ASPIRIN 81 MG TAB.CHEW GT SCH (09:00)
[2017-02-08] MEDS: HYDROGEN PEROXIDE 480 ML BOTTLE TP SCH ×2 (09:00→20:19)
[2017-02-08] MEDS: SULFAMEHOX/TRIMETH 200-40MG/ 5 ML UDC GT SCH ×2 (09:00→17:13)
[2017-02-08 20:00] VITALS: BP 128/81
[2017-02-08] MEDS: ASCORBIC ACID 500 MG TABLET GT SCH (20:18)
[2017-02-08] MEDS: MULTIVIT, IRON, MIN NO. 8, FA 1 TAB GT SCH (20:18)
[2017-02-08] MEDS: SENNOSIDES 8.6 MG TABLET GT SCH (20:18)
[2017-02-09] MEDS: ALBUTEROL FS 2.5 MG/3 ML VIAL.NEB NEB SCH ×4 (01:26→19:57)
[2017-02-09] MEDS: BLOOD SUGAR DIAGNOSTIC 1 EACH STRIP IN SCH ×2 (05:09→18:03)
[2017-02-09] MEDS: DEXILANT 30 MG GT SCH (05:09)
[2017-02-09 07:35] LABS: CALCIUM, SERUM 9.7 mg/dL (8.5-10.1); CREATININE 1.6 mg/dL (0.6-1.3); POTASSIUM 3.7 mmol/L (3.5-5.1)
[2017-02-09] MEDS: LEVETIRACETAM SOL (5 ML) 100 MG/ML UDC GT SCH ×2 (09:00→20:03)
[2017-02-09] MEDS: HYDROGEL DRESSING 90 GM TUBE TP SCH ×2 (09:00→20:03)
[2017-02-09] MEDS: PROSOURCE / PROSTAT (PYXIS) 30 ML UDC GT SCH ×2 (09:00→17:42)
[2017-02-09] MEDS: ACIDOPHILUS/BULGARICUS 1 EACH TAB.CHEW PO SCH ×3 (09:00→17:44)
[2017-02-09] MEDS: ASPIRIN 81 MG TAB.CHEW GT SCH (09:00)
[2017-02-09] MEDS: Z GUARD REMEDY 4 OZ OINT TP SCH ×2 (09:00→20:03)
[2017-02-09] MEDS: TRILEPTAL GT SCH ×2 (09:00→20:03)
[2017-02-09] MEDS: VITAMINS A AND D 56.7 GM TUBE TP SCH ×2 (09:00→20:03)
[2017-02-09] MEDS: SULFAMEHOX/TRIMETH 200-40MG/ 5 ML UDC GT SCH ×2 (09:00→17:41)
[2017-02-09] MEDS: CALCIUM CARBONATE 500 MG TAB.CHEW GT SCH ×2 (09:00→17:44)
[2017-02-09] MEDS: HYDROGEN PEROXIDE 480 ML BOTTLE TP SCH ×2 (09:00→20:03)
[2017-02-09] MEDS: INSULIN REGULAR, HUMAN 100 UNIT/ML 3 ML VIAL SQ PRN (18:03)
[2017-02-09 19:47] VITALS: BP 126/73
[2017-02-09] MEDS: MULTIVIT, IRON, MIN NO. 8, FA 1 TAB GT SCH (20:03)
[2017-02-09] MEDS: SENNOSIDES 8.6 MG TABLET GT SCH (20:03)
[2017-02-09] MEDS: ASCORBIC ACID 500 MG TABLET GT SCH (20:03)
[2017-02-10] MEDS: ALBUTEROL FS 2.5 MG/3 ML VIAL.NEB NEB SCH ×4 (01:18→20:40)
[2017-02-10] MEDS: DEXILANT 30 MG GT SCH (05:03)
[2017-02-10] MEDS: BLOOD SUGAR DIAGNOSTIC 1 EACH STRIP IN SCH ×2 (05:58→18:41)
[2017-02-10 08:00] VITALS: BP 140/73
[2017-02-10] MEDS: ASPIRIN 81 MG TAB.CHEW GT SCH (08:39)
[2017-02-10] MEDS: TRILEPTAL GT SCH ×2 (08:42→20:23)
[2017-02-10] MEDS: LEVETIRACETAM SOL (5 ML) 100 MG/ML UDC GT SCH ×2 (08:43→20:24)
[2017-02-10] MEDS: SULFAMEHOX/TRIMETH 200-40MG/ 5 ML UDC GT SCH ×2 (08:43→17:08)
[2017-02-10] MEDS: ACIDOPHILUS/BULGARICUS 1 EACH TAB.CHEW PO SCH ×3 (08:43→17:08)
[2017-02-10] MEDS: CALCIUM CARBONATE 500 MG TAB.CHEW GT SCH ×2 (08:43→17:08)
[2017-02-10] MEDS: PROSOURCE / PROSTAT (PYXIS) 30 ML UDC GT SCH ×2 (08:43→17:08)
[2017-02-10] MEDS: HYDROGEL DRESSING 90 GM TUBE TP SCH ×2 (08:45→20:26)
[2017-02-10] MEDS: VITAMINS A AND D 56.7 GM TUBE TP SCH ×2 (08:45→20:27)
[2017-02-10] MEDS: HYDROGEN PEROXIDE 480 ML BOTTLE TP SCH ×2 (08:45→20:26)
[2017-02-10] MEDS: Z GUARD REMEDY 4 OZ OINT TP SCH ×2 (08:45→20:26)
[2017-02-10] MEDS: GLYTROL 1,000 ML BAG GT PRN (12:46)
[2017-02-10 19:59] VITALS: BP 121/74
[2017-02-10] MEDS: SENNOSIDES 8.6 MG TABLET GT SCH (20:26)
[2017-02-10] MEDS: ASCORBIC ACID 500 MG TABLET GT SCH (20:26)
[2017-02-10] MEDS: MULTIVIT, IRON, MIN NO. 8, FA 1 TAB GT SCH (20:26)
[2017-02-11] MEDS: ALBUTEROL FS 2.5 MG/3 ML VIAL.NEB NEB SCH ×4 (01:48→19:42)
[2017-02-11] MEDS: GLYTROL 1,000 ML BAG GT PRN ×2 (03:23→20:17)
[2017-02-11] MEDS: DEXILANT 30 MG GT SCH (05:07)
[2017-02-11] MEDS: BLOOD SUGAR DIAGNOSTIC 1 EACH STRIP IN SCH ×2 (05:52→17:23)
[2017-02-11 08:36] VITALS: BP 125/67
[2017-02-11] MEDS: ASPIRIN 81 MG TAB.CHEW GT SCH (09:00)
[2017-02-11] MEDS: HYDROGEL DRESSING 90 GM TUBE TP SCH ×2 (09:33→20:17)
[2017-02-11] MEDS: LEVETIRACETAM SOL (5 ML) 100 MG/ML UDC GT SCH ×2 (09:33→20:15)
[2017-02-11] MEDS: CALCIUM CARBONATE 500 MG TAB.CHEW GT SCH ×2 (09:33→16:38)
[2017-02-11] MEDS: TRILEPTAL GT SCH ×2 (09:33→20:14)
[2017-02-11] MEDS: ACIDOPHILUS/BULGARICUS 1 EACH TAB.CHEW PO SCH ×3 (09:33→16:38)
[2017-02-11] MEDS: SULFAMEHOX/TRIMETH 200-40MG/ 5 ML UDC GT SCH ×2 (09:33→16:38)
[2017-02-11] MEDS: PROSOURCE / PROSTAT (PYXIS) 30 ML UDC GT SCH ×2 (09:33→16:38)
[2017-02-11] MEDS: Z GUARD REMEDY 4 OZ OINT TP SCH ×2 (09:34→20:17)
[2017-02-11] MEDS: VITAMINS A AND D 56.7 GM TUBE TP SCH ×2 (09:34→20:17)
[2017-02-11] MEDS: HYDROGEN PEROXIDE 480 ML BOTTLE TP SCH ×2 (09:34→20:17)
[2017-02-11] MEDS: BISACODYL SUPP (10 MG) 10 MG/SUPP.RECT SUPP.RECT RC PRN (15:32)
--- NOTE | 2017-02-11 19:20 | NUR ---
Seen by no new orders at this time.
[2017-02-11 20:06] VITALS: BP 139/79
[2017-02-11] MEDS: SENNOSIDES 8.6 MG TABLET GT SCH (20:15)
[2017-02-11] MEDS: ASCORBIC ACID 500 MG TABLET GT SCH (20:16)
[2017-02-11] MEDS: MULTIVIT, IRON, MIN NO. 8, FA 1 TAB GT SCH (20:16)
[2017-02-12] MEDS: ALBUTEROL FS 2.5 MG/3 ML VIAL.NEB NEB SCH ×4 (02:02→19:41)
[2017-02-12] MEDS: DEXILANT 30 MG GT SCH (05:12)
[2017-02-12] MEDS: BLOOD SUGAR DIAGNOSTIC 1 EACH STRIP IN SCH ×2 (05:53→17:50)
[2017-02-12 07:51] VITALS: BP 128/73
[2017-02-12] MEDS: HYDROGEN PEROXIDE 480 ML BOTTLE TP SCH ×2 (09:29→20:25)
[2017-02-12] MEDS: HYDROGEL DRESSING 90 GM TUBE TP SCH ×2 (09:29→20:25)
[2017-02-12] MEDS: SULFAMEHOX/TRIMETH 200-40MG/ 5 ML UDC GT SCH ×2 (09:29→16:43)
[2017-02-12] MEDS: ASPIRIN 81 MG TAB.CHEW GT SCH (09:29)
[2017-02-12] MEDS: ACIDOPHILUS/BULGARICUS 1 EACH TAB.CHEW PO SCH ×3 (09:29→16:43)
[2017-02-12] MEDS: PROSOURCE / PROSTAT (PYXIS) 30 ML UDC GT SCH ×2 (09:29→16:43)
[2017-02-12] MEDS: TRILEPTAL GT SCH ×2 (09:29→20:25)
[2017-02-12] MEDS: LEVETIRACETAM SOL (5 ML) 100 MG/ML UDC GT SCH ×2 (09:29→20:25)
[2017-02-12] MEDS: CALCIUM CARBONATE 500 MG TAB.CHEW GT SCH ×2 (09:29→16:43)
[2017-02-12] MEDS: VITAMINS A AND D 56.7 GM TUBE TP SCH ×2 (09:29→20:26)
[2017-02-12] MEDS: Z GUARD REMEDY 4 OZ OINT TP SCH ×2 (09:29→20:25)
[2017-02-12 19:55] VITALS: BP 134/70
[2017-02-12] MEDS: MULTIVIT, IRON, MIN NO. 8, FA 1 TAB GT SCH (20:25)
[2017-02-12] MEDS: ASCORBIC ACID 500 MG TABLET GT SCH (20:25)
[2017-02-12] MEDS: SENNOSIDES 8.6 MG TABLET GT SCH (20:25)
[2017-02-13] MEDS: ALBUTEROL FS 2.5 MG/3 ML VIAL.NEB NEB SCH ×4 (02:19→19:07)
[2017-02-13] MEDS: GLYTROL 1,000 ML BAG GT PRN ×2 (04:50→20:32)
[2017-02-13] MEDS: INSULIN REGULAR, HUMAN 100 UNIT/ML 3 ML VIAL SQ PRN (06:13)
[2017-02-13] MEDS: BLOOD SUGAR DIAGNOSTIC 1 EACH STRIP IN SCH ×2 (06:13→18:00)
[2017-02-13] MEDS: DEXILANT 30 MG GT SCH (06:13)
[2017-02-13 07:38] VITALS: BP 107/64
[2017-02-13] MEDS: VITAMINS A AND D 56.7 GM TUBE TP SCH ×2 (09:00→20:32)
[2017-02-13] MEDS: Z GUARD REMEDY 4 OZ OINT TP SCH ×2 (09:00→20:32)
[2017-02-13] MEDS: LEVETIRACETAM SOL (5 ML) 100 MG/ML UDC GT SCH ×2 (09:09→20:32)
[2017-02-13] MEDS: HYDROGEN PEROXIDE 480 ML BOTTLE TP SCH ×2 (09:09→20:32)
[2017-02-13] MEDS: ASPIRIN 81 MG TAB.CHEW GT SCH (09:09)
[2017-02-13] MEDS: SULFAMEHOX/TRIMETH 200-40MG/ 5 ML UDC GT SCH ×2 (09:09→17:20)
[2017-02-13] MEDS: PROSOURCE / PROSTAT (PYXIS) 30 ML UDC GT SCH ×2 (09:09→17:20)
[2017-02-13] MEDS: ACIDOPHILUS/BULGARICUS 1 EACH TAB.CHEW PO SCH ×3 (09:09→17:20)
[2017-02-13] MEDS: CALCIUM CARBONATE 500 MG TAB.CHEW GT SCH ×2 (09:09→17:20)
[2017-02-13] MEDS: TRILEPTAL GT SCH ×2 (09:09→20:32)
--- NOTE | 2017-02-13 15:05 | NUR ---
Resident's sister Beckie, brought a skin moisturizer Bag [place] to be applied to patient's extremities due to dryness. According to family they have been using this skin moisturizer since they were kids. Obtain and order from Dr. Montaño to use the moisturizer that family provides. MD in agreement.
[2017-02-13 19:59] VITALS: BP 127/79
[2017-02-13] MEDS: ASCORBIC ACID 500 MG TABLET GT SCH (20:32)
[2017-02-13] MEDS: SENNOSIDES 8.6 MG TABLET GT SCH (20:32)
[2017-02-13] MEDS: MULTIVIT, IRON, MIN NO. 8, FA 1 TAB GT SCH (20:32)
[2017-02-13] MEDS: MAGNESIUM HYDROXIDE 30 ML UDC GT PRN (20:32)
[2017-02-13] MEDS: BALM TP SCH (20:32)
[2017-02-14] MEDS: ALBUTEROL FS 2.5 MG/3 ML VIAL.NEB NEB SCH ×4 (02:10→19:41)
[2017-02-14] MEDS: INSULIN REGULAR, HUMAN 100 UNIT/ML 3 ML VIAL SQ PRN (05:45)
[2017-02-14] MEDS: BLOOD SUGAR DIAGNOSTIC 1 EACH STRIP IN SCH ×2 (05:45→17:59)
[2017-02-14] MEDS: DEXILANT 30 MG GT SCH (05:45)
[2017-02-14 07:38] VITALS: BP 107/54
[2017-02-14] MEDS: ACIDOPHILUS/BULGARICUS 1 EACH TAB.CHEW PO SCH ×3 (08:06→17:00)
[2017-02-14] MEDS: BALM TP SCH ×2 (08:06→21:04)
[2017-02-14] MEDS: SULFAMEHOX/TRIMETH 200-40MG/ 5 ML UDC GT SCH ×2 (08:06→17:58)
[2017-02-14] MEDS: TRILEPTAL GT SCH ×2 (08:06→21:04)
[2017-02-14] MEDS: LEVETIRACETAM SOL (5 ML) 100 MG/ML UDC GT SCH ×2 (08:06→21:04)
[2017-02-14] MEDS: PROSOURCE / PROSTAT (PYXIS) 30 ML UDC GT SCH ×2 (08:06→17:58)
[2017-02-14] MEDS: CALCIUM CARBONATE 500 MG TAB.CHEW GT SCH ×2 (08:06→17:59)
[2017-02-14] MEDS: ASPIRIN 81 MG TAB.CHEW GT SCH (08:06)
[2017-02-14] MEDS: HYDROGEN PEROXIDE 480 ML BOTTLE TP SCH ×2 (08:07→21:04)
[2017-02-14] MEDS: VITAMINS A AND D 56.7 GM TUBE TP SCH ×2 (08:08→21:04)
[2017-02-14] MEDS: Z GUARD REMEDY 4 OZ OINT TP SCH ×2 (08:08→21:04)
[2017-02-14] MEDS: GLYTROL 1,000 ML BAG GT PRN (13:12)
[2017-02-14 20:03] VITALS: BP 110/48
[2017-02-14] MEDS: SENNOSIDES 8.6 MG TABLET GT SCH (21:04)
[2017-02-14] MEDS: MULTIVIT, IRON, MIN NO. 8, FA 1 TAB GT SCH (21:04)
[2017-02-14] MEDS: MAGNESIUM HYDROXIDE 30 ML UDC GT PRN (21:04)
[2017-02-14] MEDS: ASCORBIC ACID 500 MG TABLET GT SCH (21:04)
[2017-02-15] MEDS: ALBUTEROL FS 2.5 MG/3 ML VIAL.NEB NEB SCH ×4 (01:41→18:49)
[2017-02-15] MEDS: BLOOD SUGAR DIAGNOSTIC 1 EACH STRIP IN SCH ×2 (05:05→17:13)
[2017-02-15] MEDS: DEXILANT 30 MG GT SCH (05:05)
[2017-02-15] MEDS: BISACODYL SUPP (10 MG) 10 MG/SUPP.RECT SUPP.RECT RC PRN (05:06)
[2017-02-15] MEDS: GLYTROL 1,000 ML BAG GT PRN ×2 (05:06→20:57)
[2017-02-15] MEDS: INSULIN REGULAR, HUMAN 100 UNIT/ML 3 ML VIAL SQ PRN (05:06)
[2017-02-15] MEDS: ASPIRIN 81 MG TAB.CHEW GT SCH (09:11)
[2017-02-15] MEDS: SULFAMEHOX/TRIMETH 200-40MG/ 5 ML UDC GT SCH ×2 (09:11→17:01)
[2017-02-15] MEDS: LEVETIRACETAM SOL (5 ML) 100 MG/ML UDC GT SCH ×2 (09:12→20:55)
[2017-02-15] MEDS: TRILEPTAL GT SCH ×2 (09:12→20:55)
[2017-02-15] MEDS: PROSOURCE / PROSTAT (PYXIS) 30 ML UDC GT SCH ×2 (09:13→17:01)
[2017-02-15] MEDS: Z GUARD REMEDY 4 OZ OINT TP SCH ×2 (09:14→20:56)
[2017-02-15] MEDS: VITAMINS A AND D 56.7 GM TUBE TP SCH ×2 (09:14→20:56)
[2017-02-15] MEDS: CALCIUM CARBONATE 500 MG TAB.CHEW GT SCH ×2 (09:14→17:01)
[2017-02-15] MEDS: ACIDOPHILUS/BULGARICUS 1 EACH TAB.CHEW PO SCH ×3 (09:14→17:01)
[2017-02-15] MEDS: HYDROGEN PEROXIDE 480 ML BOTTLE TP SCH ×2 (09:14→20:56)
[2017-02-15] MEDS: BALM TP SCH ×2 (09:14→20:55)
[2017-02-15] MEDS: MAGNESIUM HYDROXIDE 30 ML UDC GT PRN (18:36)
[2017-02-15 19:51] VITALS: BP 124/79
[2017-02-15] MEDS: ASCORBIC ACID 500 MG TABLET GT SCH (20:55)
[2017-02-15] MEDS: MULTIVIT, IRON, MIN NO. 8, FA 1 TAB GT SCH (20:55)
[2017-02-15] MEDS: SENNOSIDES 8.6 MG TABLET GT SCH (20:55)
--- NOTE | 2017-02-16 01:00 | NUR ---
Order received from Dr. Montaño to continue treatment on sacral stage 3 ulcer noted and carried out.
[2017-02-16] MEDS: ALBUTEROL FS 2.5 MG/3 ML VIAL.NEB NEB SCH ×4 (01:57→19:43)
[2017-02-16] MEDS: DEXILANT 30 MG GT SCH (05:15)
[2017-02-16] MEDS: BLOOD SUGAR DIAGNOSTIC 1 EACH STRIP IN SCH ×2 (05:15→18:15)
[2017-02-16 07:32] LABS: CALCIUM, SERUM 9.1 mg/dL (8.5-10.1); CREATININE 1.6 mg/dL (0.6-1.3); POTASSIUM 4.2 mmol/L (3.5-5.1)
[2017-02-16 08:00] VITALS: BP 129/65
[2017-02-16] MEDS: CALCIUM CARBONATE 500 MG TAB.CHEW GT SCH ×2 (09:00→17:00)
[2017-02-16] MEDS: TRILEPTAL GT SCH ×2 (09:00→20:07)
[2017-02-16] MEDS: LEVETIRACETAM SOL (5 ML) 100 MG/ML UDC GT SCH ×2 (09:00→20:07)
[2017-02-16] MEDS: PROSOURCE / PROSTAT (PYXIS) 30 ML UDC GT SCH ×2 (09:00→17:00)
[2017-02-16] MEDS: ASPIRIN 81 MG TAB.CHEW GT SCH (09:00)
[2017-02-16] MEDS: ACIDOPHILUS/BULGARICUS 1 EACH TAB.CHEW PO SCH ×3 (09:00→17:00)
[2017-02-16] MEDS: SULFAMEHOX/TRIMETH 200-40MG/ 5 ML UDC GT SCH ×2 (09:00→17:00)
--- NOTE | 2017-02-16 09:45 | NUR ---
Seen by Dr. Felix. Relayed BMP result to him. No new order.
[2017-02-16] MEDS: HYDROGEN PEROXIDE 480 ML BOTTLE TP SCH ×2 (12:21→20:08)
[2017-02-16] MEDS: VITAMINS A AND D 56.7 GM TUBE TP SCH ×2 (12:39→20:08)
[2017-02-16] MEDS: BALM TP SCH ×2 (12:39→20:08)
[2017-02-16] MEDS: Z GUARD REMEDY 4 OZ OINT TP SCH ×2 (12:39→20:08)
[2017-02-16] MEDS: GLYTROL 1,000 ML BAG GT PRN (16:17)
[2017-02-16 19:46] VITALS: BP 117/64
[2017-02-16] MEDS: MULTIVIT, IRON, MIN NO. 8, FA 1 TAB GT SCH (20:07)
[2017-02-16] MEDS: ASCORBIC ACID 500 MG TABLET GT SCH (20:07)
[2017-02-16] MEDS: SENNOSIDES 8.6 MG TABLET GT SCH (20:07)
[2017-02-16] MEDS: HYDROGEL DRESSING 90 GM TUBE TP SCH (20:07)
[2017-02-17] MEDS: ALBUTEROL FS 2.5 MG/3 ML VIAL.NEB NEB SCH ×4 (01:39→20:09)
[2017-02-17] MEDS: BLOOD SUGAR DIAGNOSTIC 1 EACH STRIP IN SCH ×2 (05:37→17:58)
[2017-02-17] MEDS: DEXILANT 30 MG GT SCH (05:37)
[2017-02-17 07:54] VITALS: BP 128/72
--- NOTE | 2017-02-17 08:18 | NUR ---
Pt on contact isolation for MRSA bilateral legs rashes. Educated staff and pt's family on contact isolation precautions.
[2017-02-17] MEDS: HYDROGEL DRESSING 90 GM TUBE TP SCH ×2 (09:58→20:07)
[2017-02-17] MEDS: LEVETIRACETAM SOL (5 ML) 100 MG/ML UDC GT SCH ×2 (09:58→20:07)
[2017-02-17] MEDS: ACIDOPHILUS/BULGARICUS 1 EACH TAB.CHEW PO SCH ×3 (09:58→17:58)
[2017-02-17] MEDS: TRILEPTAL GT SCH ×2 (09:58→20:07)
[2017-02-17] MEDS: PROSOURCE / PROSTAT (PYXIS) 30 ML UDC GT SCH ×2 (09:58→17:58)
[2017-02-17] MEDS: CALCIUM CARBONATE 500 MG TAB.CHEW GT SCH ×2 (09:58→17:58)
[2017-02-17] MEDS: ASPIRIN 81 MG TAB.CHEW GT SCH (09:58)
[2017-02-17] MEDS: Z GUARD REMEDY 4 OZ OINT TP SCH ×2 (09:59→20:07)
[2017-02-17] MEDS: VITAMINS A AND D 56.7 GM TUBE TP SCH ×2 (09:59→20:07)
[2017-02-17] MEDS: HYDROGEN PEROXIDE 480 ML BOTTLE TP SCH ×2 (09:59→20:07)
[2017-02-17] MEDS: BALM TP SCH ×2 (09:59→20:07)
[2017-02-17] MEDS: GLYTROL 1,000 ML BAG GT PRN (13:13)
[2017-02-17 19:37] VITALS: BP 143/80
[2017-02-17] MEDS: ASCORBIC ACID 500 MG TABLET GT SCH (20:07)
[2017-02-17] MEDS: SENNOSIDES 8.6 MG TABLET GT SCH (20:07)
[2017-02-17] MEDS: MULTIVIT, IRON, MIN NO. 8, FA 1 TAB GT SCH (20:07)
[2017-02-18] MEDS: ALBUTEROL FS 2.5 MG/3 ML VIAL.NEB NEB SCH ×4 (01:30→19:49)
[2017-02-18] MEDS: DEXILANT 30 MG GT SCH (05:08)
[2017-02-18] MEDS: BLOOD SUGAR DIAGNOSTIC 1 EACH STRIP IN SCH ×2 (05:46→17:56)
[2017-02-18] MEDS: GLYTROL 1,000 ML BAG GT PRN ×2 (06:45→18:56)
--- NOTE | 2017-02-18 07:00 | NUR ---
PT RECEIVED TRACHED ON MECH VENT WITH MD ORDERED SETTINGS. TRACH IS SECURE AND PATENT. MECH VENT PLUGGED INTO RED OUTLET. VENT ALARMS ARE SET PER POLICY. DISCONNECT ALARM TESTED AND AUDIBLE. SX MOD AMOUNT OF SEMI THICK YELLOW SECRETIONS. NO DISTRESS NOTED AT THIS TIME. WILL CONTINUE TO MONITOR T.O SHIFT.
[2017-02-18 07:35] VITALS: BP 142/74
[2017-02-18] MEDS: Z GUARD REMEDY 4 OZ OINT TP SCH ×2 (09:00→20:06)
[2017-02-18] MEDS: HYDROGEL DRESSING 90 GM TUBE TP SCH ×2 (09:00→20:05)
[2017-02-18] MEDS: VITAMINS A AND D 56.7 GM TUBE TP SCH ×2 (09:00→20:06)
[2017-02-18] MEDS: BALM TP SCH ×2 (09:00→20:06)
[2017-02-18] MEDS: HYDROGEN PEROXIDE 480 ML BOTTLE TP SCH ×2 (09:00→20:06)
[2017-02-18] MEDS: ACIDOPHILUS/BULGARICUS 1 EACH TAB.CHEW PO SCH ×3 (09:41→17:00)
[2017-02-18] MEDS: CALCIUM CARBONATE 500 MG TAB.CHEW GT SCH ×2 (09:41→17:56)
[2017-02-18] MEDS: LEVETIRACETAM SOL (5 ML) 100 MG/ML UDC GT SCH ×2 (09:41→20:04)
[2017-02-18] MEDS: TRILEPTAL GT SCH ×2 (09:41→20:04)
[2017-02-18] MEDS: PROSOURCE / PROSTAT (PYXIS) 30 ML UDC GT SCH ×2 (09:41→17:56)
[2017-02-18] MEDS: ASPIRIN 81 MG TAB.CHEW GT SCH (09:41)
[2017-02-18] MEDS: MAGNESIUM HYDROXIDE 30 ML UDC GT PRN (18:30)
[2017-02-18 19:54] VITALS: BP 132/72
[2017-02-18] MEDS: SENNOSIDES 8.6 MG TABLET GT SCH (20:04)
[2017-02-18] MEDS: ASCORBIC ACID 500 MG TABLET GT SCH (20:05)
[2017-02-18] MEDS: MULTIVIT, IRON, MIN NO. 8, FA 1 TAB GT SCH (20:05)
[2017-02-19] MEDS: ALBUTEROL FS 2.5 MG/3 ML VIAL.NEB NEB SCH ×4 (01:45→19:05)
[2017-02-19] MEDS: DEXILANT 30 MG GT SCH (05:12)
[2017-02-19] MEDS: BLOOD SUGAR DIAGNOSTIC 1 EACH STRIP IN SCH ×2 (05:50→17:48)
[2017-02-19 07:24] VITALS: BP 133/71
[2017-02-19] MEDS: TRILEPTAL GT SCH ×2 (09:00→20:49)
[2017-02-19] MEDS: HYDROGEN PEROXIDE 480 ML BOTTLE TP SCH ×2 (09:00→20:50)
[2017-02-19] MEDS: HYDROGEL DRESSING 90 GM TUBE TP SCH ×2 (09:00→20:49)
[2017-02-19] MEDS: ASPIRIN 81 MG TAB.CHEW GT SCH (09:00)
[2017-02-19] MEDS: BALM TP SCH ×2 (09:00→20:50)
[2017-02-19] MEDS: VITAMINS A AND D 56.7 GM TUBE TP SCH ×2 (09:00→20:50)
[2017-02-19] MEDS: ACIDOPHILUS/BULGARICUS 1 EACH TAB.CHEW PO SCH ×3 (09:00→17:00)
[2017-02-19] MEDS: PROSOURCE / PROSTAT (PYXIS) 30 ML UDC GT SCH ×2 (09:00→17:48)
[2017-02-19] MEDS: LEVETIRACETAM SOL (5 ML) 100 MG/ML UDC GT SCH ×2 (09:00→20:49)
[2017-02-19] MEDS: CALCIUM CARBONATE 500 MG TAB.CHEW GT SCH ×2 (09:00→17:00)
[2017-02-19] MEDS: Z GUARD REMEDY 4 OZ OINT TP SCH ×2 (09:00→20:50)
--- NOTE | 2017-02-19 09:00 | NUR ---
Seen by Dr. Montaño. Pt on contact isolation for MRSA in the bilateral legs and has completed antibiotic therapy. He examined pt's legs. Pt has small pinpoint bumps on the legs, dry and no exudate. Pt also on contact isolation for ESBL urine. Pt not having fevers, no hematuria. Urine yellow in color, has some sediments, water provided as ordered. Dr. Montaño said he does not want to treat pt's ESBL urine anymore, but to refer to NAN Loredo to review contact isolation. Notified NAN Loreod.
[2017-02-19 19:25] VITALS: BP 118/78
[2017-02-19] MEDS: MULTIVIT, IRON, MIN NO. 8, FA 1 TAB GT SCH (20:49)
[2017-02-19] MEDS: ASCORBIC ACID 500 MG TABLET GT SCH (20:49)
[2017-02-19] MEDS: SENNOSIDES 8.6 MG TABLET GT SCH (20:49)
[2017-02-19] MEDS: GLYTROL 1,000 ML BAG GT PRN (23:00)
[2017-02-20] MEDS: ALBUTEROL FS 2.5 MG/3 ML VIAL.NEB NEB SCH ×4 (02:05→19:46)
[2017-02-20] MEDS: BLOOD SUGAR DIAGNOSTIC 1 EACH STRIP IN SCH ×2 (06:04→17:57)
[2017-02-20] MEDS: INSULIN REGULAR, HUMAN 100 UNIT/ML 3 ML VIAL SQ PRN (06:04)
[2017-02-20] MEDS: DEXILANT 30 MG GT SCH (06:04)
[2017-02-20 07:57] VITALS: BP 115/68
[2017-02-20] MEDS: PROSOURCE / PROSTAT (PYXIS) 30 ML UDC GT SCH ×2 (09:46→17:56)
[2017-02-20] MEDS: ASPIRIN 81 MG TAB.CHEW GT SCH (09:46)
[2017-02-20] MEDS: LEVETIRACETAM SOL (5 ML) 100 MG/ML UDC GT SCH ×2 (09:46→20:44)
[2017-02-20] MEDS: TRILEPTAL GT SCH ×2 (09:46→20:44)
[2017-02-20] MEDS: CALCIUM CARBONATE 500 MG TAB.CHEW GT SCH ×2 (09:47→17:56)
[2017-02-20] MEDS: VITAMINS A AND D 56.7 GM TUBE TP SCH ×2 (09:47→20:44)
[2017-02-20] MEDS: BALM TP SCH ×2 (09:47→20:44)
[2017-02-20] MEDS: ACIDOPHILUS/BULGARICUS 1 EACH TAB.CHEW PO SCH ×3 (09:47→17:00)
[2017-02-20] MEDS: Z GUARD REMEDY 4 OZ OINT TP SCH ×2 (09:47→20:44)
[2017-02-20] MEDS: HYDROGEL DRESSING 90 GM TUBE TP SCH ×2 (09:47→20:44)
[2017-02-20] MEDS: HYDROGEN PEROXIDE 480 ML BOTTLE TP SCH ×2 (09:47→20:44)
--- NOTE | 2017-02-20 17:59 | NUR ---
ACCIDENTAL DECANNULATION: PATIENT SELF DECANNULATED HER TRACH ACCIDENTALLY. RE INSERT SAME TRACH SHILEY 8XLT PROXIMAL WITH CUFFED. BREATH SOUNDS BILATERAL COURSE RHONCHI. SPO2 98% @ 40% FIO2 HR 63 BPM. Addendum: 02/20/17 at 1807 by VIVEK PHILLIP RT Amended: Links added.
[2017-02-20] MEDS: CODEINE/PROMETHAZINE HCL 5 ML UDC GT PRN (18:03)
[2017-02-20] MEDS: GLYTROL 1,000 ML BAG GT PRN ×2 (18:10→21:34)
--- NOTE | 2017-02-20 18:45 | NUR ---
Seen and examined by Anna Vargas NP, notified patient self decannulate, RT reinserted trach, patient tolerated procedure well. Resident saturating 94-95% at room air, but went up to 100% as soon as she is connected back to the vent. Anna also notified that patient completed the ATB Bactrim for her MRSA for the leg rash. Anna assessed resident's lower extremities and D/Doe isolation, patient colonized. Resident's sister Beckie notified that patient pulled trach and her isolation discontinued. Appreciated the call.
[2017-02-20 20:06] VITALS: BP 115/71
[2017-02-20] MEDS: ASCORBIC ACID 500 MG TABLET GT SCH (20:44)
[2017-02-20] MEDS: SENNOSIDES 8.6 MG TABLET GT SCH (20:44)
[2017-02-20] MEDS: MULTIVIT, IRON, MIN NO. 8, FA 1 TAB GT SCH (20:44)
[2017-02-21] MEDS: ALBUTEROL FS 2.5 MG/3 ML VIAL.NEB NEB SCH ×4 (01:34→19:28)
[2017-02-21] MEDS: DEXILANT 30 MG GT SCH (05:14)
[2017-02-21] MEDS: BLOOD SUGAR DIAGNOSTIC 1 EACH STRIP IN SCH ×2 (06:06→18:44)
[2017-02-21] MEDS: INSULIN REGULAR, HUMAN 100 UNIT/ML 3 ML VIAL SQ PRN (06:07)
--- NOTE | 2017-02-21 06:47 | NUR ---
Pt stable during the night,minimal tracheal bleeding noted,no respiratory distress.Pt menstruating moderate amount.Will continue to monitor.
[2017-02-21 07:53] VITALS: BP 126/56
[2017-02-21] MEDS: LEVETIRACETAM SOL (5 ML) 100 MG/ML UDC GT SCH ×2 (08:27→21:49)
[2017-02-21] MEDS: CALCIUM CARBONATE 500 MG TAB.CHEW GT SCH ×2 (08:27→17:00)
[2017-02-21] MEDS: PROSOURCE / PROSTAT (PYXIS) 30 ML UDC GT SCH ×2 (08:27→17:00)
[2017-02-21] MEDS: TRILEPTAL GT SCH ×2 (08:27→21:49)
[2017-02-21] MEDS: ASPIRIN 81 MG TAB.CHEW GT SCH (08:27)
[2017-02-21] MEDS: Z GUARD REMEDY 4 OZ OINT TP SCH ×2 (08:28→21:50)
[2017-02-21] MEDS: ACIDOPHILUS/BULGARICUS 1 EACH TAB.CHEW PO SCH ×3 (08:28→17:00)
[2017-02-21] MEDS: HYDROGEN PEROXIDE 480 ML BOTTLE TP SCH ×2 (08:28→21:50)
[2017-02-21] MEDS: VITAMINS A AND D 56.7 GM TUBE TP SCH ×2 (08:28→21:50)
[2017-02-21] MEDS: HYDROGEL DRESSING 90 GM TUBE TP SCH ×2 (08:28→21:49)
[2017-02-21] MEDS: BALM TP SCH ×2 (08:28→21:50)
[2017-02-21] MEDS: GLYTROL 1,000 ML BAG GT PRN (15:33)
[2017-02-21] MEDS: NEOMY SULF/BACITRAC ZN/POLY 15 GM TUBE TP SCH ×2 (15:34→21:50)
[2017-02-21] MEDS: ASCORBIC ACID 500 MG TABLET GT SCH (21:49)
[2017-02-21] MEDS: MULTIVIT, IRON, MIN NO. 8, FA 1 TAB GT SCH (21:49)
[2017-02-21] MEDS: SENNOSIDES 8.6 MG TABLET GT SCH (21:49)
[2017-02-21 23:29] VITALS: BP 117/67
[2017-02-22] MEDS: ALBUTEROL FS 2.5 MG/3 ML VIAL.NEB NEB SCH ×4 (01:52→19:44)
[2017-02-22] MEDS: GLYTROL 1,000 ML BAG GT PRN ×2 (04:35→21:34)
[2017-02-22] MEDS: BLOOD SUGAR DIAGNOSTIC 1 EACH STRIP IN SCH ×2 (06:47→18:04)
[2017-02-22] MEDS: DEXILANT 30 MG GT SCH (06:47)
[2017-02-22] MEDS: INSULIN REGULAR, HUMAN 100 UNIT/ML 3 ML VIAL SQ PRN (06:47)
[2017-02-22 07:40] VITALS: BP 128/77
[2017-02-22] MEDS: TRILEPTAL GT SCH ×2 (08:33→21:33)
[2017-02-22] MEDS: PROSOURCE / PROSTAT (PYXIS) 30 ML UDC GT SCH ×2 (08:33→17:00)
[2017-02-22] MEDS: ACIDOPHILUS/BULGARICUS 1 EACH TAB.CHEW PO SCH ×3 (08:33→17:00)
[2017-02-22] MEDS: LEVETIRACETAM SOL (5 ML) 100 MG/ML UDC GT SCH ×2 (08:33→21:33)
[2017-02-22] MEDS: ASPIRIN 81 MG TAB.CHEW GT SCH (08:33)
[2017-02-22] MEDS: CALCIUM CARBONATE 500 MG TAB.CHEW GT SCH ×2 (08:33→17:00)
[2017-02-22] MEDS: BALM TP SCH ×2 (08:33→21:33)
[2017-02-22] MEDS: HYDROGEN PEROXIDE 480 ML BOTTLE TP SCH ×2 (08:33→21:33)
[2017-02-22] MEDS: HYDROGEL DRESSING 90 GM TUBE TP SCH ×2 (08:33→21:33)
[2017-02-22] MEDS: Z GUARD REMEDY 4 OZ OINT TP SCH ×2 (08:34→21:34)
[2017-02-22] MEDS: VITAMINS A AND D 56.7 GM TUBE TP SCH ×2 (08:34→21:34)
[2017-02-22] MEDS: NEOMY SULF/BACITRAC ZN/POLY 15 GM TUBE TP SCH ×2 (08:34→21:33)
[2017-02-22 19:41] VITALS: BP 97/59
[2017-02-22] MEDS: SENNOSIDES 8.6 MG TABLET GT SCH (21:33)
[2017-02-22] MEDS: ASCORBIC ACID 500 MG TABLET GT SCH (21:33)
[2017-02-22] MEDS: MULTIVIT, IRON, MIN NO. 8, FA 1 TAB GT SCH (21:33)
[2017-02-23] MEDS: ALBUTEROL FS 2.5 MG/3 ML VIAL.NEB NEB SCH ×4 (01:09→20:05)
[2017-02-23] MEDS: DEXILANT 30 MG GT SCH (05:40)
[2017-02-23] MEDS: INSULIN REGULAR, HUMAN 100 UNIT/ML 3 ML VIAL SQ PRN (05:40)
[2017-02-23] MEDS: BLOOD SUGAR DIAGNOSTIC 1 EACH STRIP IN SCH ×2 (05:40→18:35)
[2017-02-23 08:00] VITALS: BP 116/70
[2017-02-23] MEDS: HYDROGEL DRESSING 90 GM TUBE TP SCH ×2 (09:08→20:20)
[2017-02-23] MEDS: PROSOURCE / PROSTAT (PYXIS) 30 ML UDC GT SCH ×2 (09:08→17:00)
[2017-02-23] MEDS: ACIDOPHILUS/BULGARICUS 1 EACH TAB.CHEW PO SCH ×3 (09:08→17:00)
[2017-02-23] MEDS: BALM TP SCH ×2 (09:08→20:20)
[2017-02-23] MEDS: ASPIRIN 81 MG TAB.CHEW GT SCH (09:08)
[2017-02-23] MEDS: CALCIUM CARBONATE 500 MG TAB.CHEW GT SCH ×2 (09:08→17:00)
[2017-02-23] MEDS: Z GUARD REMEDY 4 OZ OINT TP SCH ×2 (09:09→20:21)
[2017-02-23] MEDS: HYDROGEN PEROXIDE 480 ML BOTTLE TP SCH ×2 (09:09→20:21)
[2017-02-23] MEDS: NEOMY SULF/BACITRAC ZN/POLY 15 GM TUBE TP SCH ×2 (09:09→20:21)
[2017-02-23] MEDS: VITAMINS A AND D 56.7 GM TUBE TP SCH ×2 (09:09→20:21)
[2017-02-23] MEDS: LEVETIRACETAM SOL (5 ML) 100 MG/ML UDC GT SCH ×2 (09:11→20:20)
[2017-02-23] MEDS: TRILEPTAL GT SCH ×2 (09:12→20:20)
[2017-02-23] MEDS: GLYTROL 1,000 ML BAG GT PRN (14:29)
[2017-02-23 19:58] VITALS: BP 131/64
[2017-02-23] MEDS: MULTIVIT, IRON, MIN NO. 8, FA 1 TAB GT SCH (20:20)
[2017-02-23] MEDS: SENNOSIDES 8.6 MG TABLET GT SCH (20:20)
[2017-02-23] MEDS: ASCORBIC ACID 500 MG TABLET GT SCH (20:20)
[2017-02-24] MEDS: ALBUTEROL FS 2.5 MG/3 ML VIAL.NEB NEB SCH ×4 (01:30→20:01)
[2017-02-24] MEDS: DEXILANT 30 MG GT SCH (05:43)
[2017-02-24] MEDS: BLOOD SUGAR DIAGNOSTIC 1 EACH STRIP IN SCH ×2 (05:43→17:53)
[2017-02-24] MEDS: Z GUARD REMEDY 4 OZ OINT TP SCH ×2 (09:51→20:33)
[2017-02-24] MEDS: HYDROGEL DRESSING 90 GM TUBE TP SCH (09:51)
[2017-02-24] MEDS: VITAMINS A AND D 56.7 GM TUBE TP SCH ×2 (09:51→20:33)
[2017-02-24] MEDS: NEOMY SULF/BACITRAC ZN/POLY 15 GM TUBE TP SCH ×2 (09:51→20:33)
[2017-02-24] MEDS: LEVETIRACETAM SOL (5 ML) 100 MG/ML UDC GT SCH ×2 (09:51→20:33)
[2017-02-24] MEDS: HYDROGEN PEROXIDE 480 ML BOTTLE TP SCH ×2 (09:51→20:33)
[2017-02-24] MEDS: TRILEPTAL GT SCH ×2 (09:51→20:33)
[2017-02-24] MEDS: BALM TP SCH ×2 (09:51→20:33)
[2017-02-24] MEDS: PROSOURCE / PROSTAT (PYXIS) 30 ML UDC GT SCH ×2 (09:51→17:53)
[2017-02-24] MEDS: ASPIRIN 81 MG TAB.CHEW GT SCH (09:51)
[2017-02-24] MEDS: ACIDOPHILUS/BULGARICUS 1 EACH TAB.CHEW PO SCH ×3 (09:51→17:53)
[2017-02-24] MEDS: CALCIUM CARBONATE 500 MG TAB.CHEW GT SCH ×2 (09:51→17:53)
--- NOTE | 2017-02-24 11:00 | NUR ---
Seen by Dr. Felix. 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 Also received order to use Hibiclens when bathing the pt daily for one week. Notified pt's sister Beckie and she expressed appreciation.
--- NOTE | 2017-02-24 17:50 | NUR ---
Pt's sacral wound already healed. Received order to wash the area with soap and water, apply Z-guard q shift and PRN for soiling for skin maintenance. Notified Beckie.
--- NOTE | 2017-02-24 17:52 | NUR ---
Pt's room and bed were thoroughly cleaned, curtains were changed. Pt was showered with Hibiclens.
[2017-02-24] MEDS ORDERED: Z GUARD REMEDY 2 OZ OINT TP PRN (18:00)
[2017-02-24] MEDS: MULTIVIT, IRON, MIN NO. 8, FA 1 TAB GT SCH (20:33)
[2017-02-24] MEDS: ASCORBIC ACID 500 MG TABLET GT SCH (20:33)
[2017-02-24] MEDS: Z GUARD REMEDY 2 OZ OINT TP SCH (20:33)
[2017-02-24] MEDS: SENNOSIDES 8.6 MG TABLET GT SCH (20:33)
[2017-02-24 21:17] VITALS: BP 114/79
[2017-02-25] MEDS: GLYTROL 1,000 ML BAG GT PRN ×2 (00:03→14:46)
[2017-02-25] MEDS: ALBUTEROL FS 2.5 MG/3 ML VIAL.NEB NEB SCH ×4 (01:19→18:55)
[2017-02-25] MEDS: DEXILANT 30 MG GT SCH (05:52)
[2017-02-25] MEDS: BLOOD SUGAR DIAGNOSTIC 1 EACH STRIP IN SCH ×2 (05:52→18:00)
[2017-02-25 07:09] VITALS: BP 128/78
[2017-02-25] MEDS: LEVETIRACETAM SOL (5 ML) 100 MG/ML UDC GT SCH ×2 (08:07→21:50)
[2017-02-25] MEDS: ASPIRIN 81 MG TAB.CHEW GT SCH (08:07)
[2017-02-25] MEDS: BALM TP SCH ×2 (08:07→21:50)
[2017-02-25] MEDS: ACIDOPHILUS/BULGARICUS 1 EACH TAB.CHEW PO SCH ×3 (08:07→17:59)
[2017-02-25] MEDS: HIBICLENS TP SCH (08:07)
[2017-02-25] MEDS: PROSOURCE / PROSTAT (PYXIS) 30 ML UDC GT SCH ×2 (08:07→17:59)
[2017-02-25] MEDS: CALCIUM CARBONATE 500 MG TAB.CHEW GT SCH ×2 (08:07→17:59)
[2017-02-25] MEDS: TRILEPTAL GT SCH ×2 (08:07→21:50)
[2017-02-25] MEDS: Z GUARD REMEDY 4 OZ OINT TP SCH ×2 (08:08→21:50)
[2017-02-25] MEDS: Z GUARD REMEDY 2 OZ OINT TP SCH ×2 (08:08→21:50)
[2017-02-25] MEDS: NEOMY SULF/BACITRAC ZN/POLY 15 GM TUBE TP SCH ×2 (08:08→21:50)
[2017-02-25] MEDS: HYDROGEN PEROXIDE 480 ML BOTTLE TP SCH ×2 (08:08→21:50)
[2017-02-25] MEDS: VITAMINS A AND D 56.7 GM TUBE TP SCH ×2 (08:09→21:50)
--- NOTE | 2017-02-25 08:11 | NUR ---
Social Service Section of [facility] completed (2nd quarter). Sister Beckie Chu is the resident's conservator and would like for her to stabilize before she is discharged. She does not anticipate any current discharge plans. Contact isolation was recently dc'd 02/24/2017.
--- NOTE | 2017-02-25 15:00 | NUR ---
Resident up in chris-chair in the room watching TV and frequent checks done by activity staff/nursing. She was up about 2 hours, remain connected in ventilator, well tolerated, no s/s of distress or discomfort. Beckie notified that resident is running out of supplies that she provides, stated she will bring them tomorrow.
[2017-02-25 20:01] VITALS: BP 130/80
[2017-02-25] MEDS: SENNOSIDES 8.6 MG TABLET GT SCH (21:50)
[2017-02-25] MEDS: MULTIVIT, IRON, MIN NO. 8, FA 1 TAB GT SCH (21:50)
[2017-02-25] MEDS: ASCORBIC ACID 500 MG TABLET GT SCH (21:50)
[2017-02-26] MEDS: ALBUTEROL FS 2.5 MG/3 ML VIAL.NEB NEB SCH ×4 (00:49→19:13)
[2017-02-26] MEDS: GLYTROL 1,000 ML BAG GT PRN ×2 (03:53→18:50)
[2017-02-26] MEDS: DEXILANT 30 MG GT SCH (05:17)
[2017-02-26] MEDS: BLOOD SUGAR DIAGNOSTIC 1 EACH STRIP IN SCH ×2 (05:17→18:48)
[2017-02-26] MEDS: INSULIN REGULAR, HUMAN 100 UNIT/ML 3 ML VIAL SQ PRN (05:18)
[2017-02-26] MEDS: MAGNESIUM HYDROXIDE 30 ML UDC GT PRN (06:59)
[2017-02-26 07:46] VITALS: BP 113/64
[2017-02-26] MEDS: PROSOURCE / PROSTAT (PYXIS) 30 ML UDC GT SCH ×2 (08:03→17:00)
[2017-02-26] MEDS: TRILEPTAL GT SCH ×2 (08:03→21:31)
[2017-02-26] MEDS: LEVETIRACETAM SOL (5 ML) 100 MG/ML UDC GT SCH ×2 (08:03→21:31)
[2017-02-26] MEDS: CALCIUM CARBONATE 500 MG TAB.CHEW GT SCH ×2 (08:03→17:00)
[2017-02-26] MEDS: ASPIRIN 81 MG TAB.CHEW GT SCH (08:03)
[2017-02-26] MEDS: ACIDOPHILUS/BULGARICUS 1 EACH TAB.CHEW PO SCH ×3 (08:04→17:00)
[2017-02-26] MEDS: Z GUARD REMEDY 2 OZ OINT TP SCH ×2 (08:49→21:32)
[2017-02-26] MEDS: VITAMINS A AND D 56.7 GM TUBE TP SCH ×2 (08:49→21:32)
[2017-02-26] MEDS: Z GUARD REMEDY 4 OZ OINT TP SCH ×4 (08:49→21:32)
[2017-02-26] MEDS: NEOMY SULF/BACITRAC ZN/POLY 15 GM TUBE TP SCH ×2 (08:49→21:32)
[2017-02-26] MEDS: BALM TP SCH ×2 (08:51→21:31)
--- NOTE | 2017-02-26 09:53 | NUR ---
RN NOTES REPORT [facility].
[2017-02-26] MEDS: HYDROGEN PEROXIDE 480 ML BOTTLE TP SCH ×2 (10:00→21:31)
[2017-02-26] MEDS: HIBICLENS TP SCH (10:00)
[2017-02-26 19:48] VITALS: BP 122/68
[2017-02-26] MEDS: MULTIVIT, IRON, MIN NO. 8, FA 1 TAB GT SCH (21:31)
[2017-02-26] MEDS: SENNOSIDES 8.6 MG TABLET GT SCH (21:31)
[2017-02-26] MEDS: ASCORBIC ACID 500 MG TABLET GT SCH (21:31)
[2017-02-27] MEDS: ALBUTEROL FS 2.5 MG/3 ML VIAL.NEB NEB SCH ×4 (01:29→20:03)
[2017-02-27] MEDS: INSULIN REGULAR, HUMAN 100 UNIT/ML 3 ML VIAL SQ PRN ×2 (05:40→17:28)
[2017-02-27] MEDS: BLOOD SUGAR DIAGNOSTIC 1 EACH STRIP IN SCH ×2 (05:40→17:02)
[2017-02-27] MEDS: DEXILANT 30 MG GT SCH (05:40)
[2017-02-27 07:42] VITALS: BP 137/73
[2017-02-27] MEDS: LEVETIRACETAM SOL (5 ML) 100 MG/ML UDC GT SCH ×2 (09:00→20:49)
[2017-02-27] MEDS: PROSOURCE / PROSTAT (PYXIS) 30 ML UDC GT SCH ×2 (09:00→17:02)
[2017-02-27] MEDS: VITAMINS A AND D 56.7 GM TUBE TP SCH ×2 (09:00→20:51)
[2017-02-27] MEDS: HIBICLENS TP SCH (09:00)
[2017-02-27] MEDS: TRILEPTAL GT SCH ×2 (09:00→20:49)
[2017-02-27] MEDS: BALM TP SCH ×2 (09:00→20:49)
[2017-02-27] MEDS: ASPIRIN 81 MG TAB.CHEW GT SCH (09:00)
[2017-02-27] MEDS: Z GUARD REMEDY 4 OZ OINT TP SCH ×4 (09:00→20:51)
[2017-02-27] MEDS: HYDROGEN PEROXIDE 480 ML BOTTLE TP SCH ×2 (09:00→20:50)
[2017-02-27] MEDS: Z GUARD REMEDY 2 OZ OINT TP SCH ×2 (09:00→20:50)
[2017-02-27] MEDS: NEOMY SULF/BACITRAC ZN/POLY 15 GM TUBE TP SCH ×2 (09:00→20:50)
[2017-02-27] MEDS: CALCIUM CARBONATE 500 MG TAB.CHEW GT SCH ×2 (09:00→17:02)
[2017-02-27] MEDS: ACIDOPHILUS/BULGARICUS 1 EACH TAB.CHEW PO SCH ×3 (09:00→17:02)
--- NOTE | 2017-02-27 13:28 | NUR ---
IDT meeting held, reviewed current and new medications, treatments and labs. Beckie (sister) attended the meeting, NNO order given at this time. Resident's sister did not have any concern, she is very happy. She saw patient's skin and very pleased that "bag balm" is effective in patient's dry skin. Her sacral decub is healing. Patient getting her shower on scheduled days and putting her up in the gerichair. Resident up in gerichair x 3hours well tolerated.
[2017-02-27] MEDS: GLYTROL 1,000 ML BAG GT PRN (13:54)
[2017-02-27 19:40] VITALS: BP 130/62
[2017-02-27] MEDS: MULTIVIT, IRON, MIN NO. 8, FA 1 TAB GT SCH (20:49)
[2017-02-27] MEDS: ASCORBIC ACID 500 MG TABLET GT SCH (20:49)
[2017-02-27] MEDS: SENNOSIDES 8.6 MG TABLET GT SCH (20:49)
[2017-02-28] MEDS: ALBUTEROL FS 2.5 MG/3 ML VIAL.NEB NEB SCH ×4 (01:37→19:45)
[2017-02-28] MEDS: GLYTROL 1,000 ML BAG GT PRN ×2 (05:17→21:51)
[2017-02-28] MEDS: DEXILANT 30 MG GT SCH (05:17)
[2017-02-28] MEDS: INSULIN REGULAR, HUMAN 100 UNIT/ML 3 ML VIAL SQ PRN ×2 (06:03→17:55)
[2017-02-28] MEDS: BLOOD SUGAR DIAGNOSTIC 1 EACH STRIP IN SCH ×2 (06:03→17:11)
[2017-02-28 07:34] VITALS: BP 118/69
[2017-02-28] MEDS: BALM TP SCH ×2 (09:00→21:50)
[2017-02-28] MEDS: LEVETIRACETAM SOL (5 ML) 100 MG/ML UDC GT SCH ×2 (09:00→21:50)
[2017-02-28] MEDS: CALCIUM CARBONATE 500 MG TAB.CHEW GT SCH ×2 (09:00→17:11)
[2017-02-28] MEDS: VITAMINS A AND D 56.7 GM TUBE TP SCH ×2 (09:00→21:51)
[2017-02-28] MEDS: TRILEPTAL GT SCH ×2 (09:00→21:50)
[2017-02-28] MEDS: ASPIRIN 81 MG TAB.CHEW GT SCH (09:00)
[2017-02-28] MEDS: Z GUARD REMEDY 4 OZ OINT TP SCH ×5 (09:00→21:51)
[2017-02-28] MEDS: HIBICLENS TP SCH (09:00)
[2017-02-28] MEDS: ACIDOPHILUS/BULGARICUS 1 EACH TAB.CHEW PO SCH ×3 (09:00→17:11)
[2017-02-28] MEDS: HYDROGEN PEROXIDE 480 ML BOTTLE TP SCH ×2 (09:00→21:51)
[2017-02-28] MEDS: PROSOURCE / PROSTAT (PYXIS) 30 ML UDC GT SCH ×2 (09:00→17:11)
[2017-02-28 19:20] VITALS: BP 101/68
[2017-02-28] MEDS: MULTIVIT, IRON, MIN NO. 8, FA 1 TAB GT SCH (21:50)
[2017-02-28] MEDS: ASCORBIC ACID 500 MG TABLET GT SCH (21:50)
[2017-02-28] MEDS: SENNOSIDES 8.6 MG TABLET GT SCH (21:50)
[2017-03-01] MEDS: ALBUTEROL FS 2.5 MG/3 ML VIAL.NEB NEB SCH ×4 (01:17→19:52)
[2017-03-01] MEDS: DEXILANT 30 MG GT SCH (05:56)
[2017-03-01] MEDS: INSULIN REGULAR, HUMAN 100 UNIT/ML 3 ML VIAL SQ PRN (05:56)
[2017-03-01] MEDS: BLOOD SUGAR DIAGNOSTIC 1 EACH STRIP IN SCH ×2 (05:56→17:52)
[2017-03-01 07:21] VITALS: BP 123/71
[2017-03-01] MEDS: TRILEPTAL GT SCH ×2 (08:56→20:29)
[2017-03-01] MEDS: ASPIRIN 81 MG TAB.CHEW GT SCH (08:56)
[2017-03-01] MEDS: LEVETIRACETAM SOL (5 ML) 100 MG/ML UDC GT SCH ×2 (08:56→20:29)
[2017-03-01] MEDS: ACIDOPHILUS/BULGARICUS 1 EACH TAB.CHEW PO SCH ×3 (08:56→16:46)
[2017-03-01] MEDS: CALCIUM CARBONATE 500 MG TAB.CHEW GT SCH ×2 (08:56→16:46)
[2017-03-01] MEDS: PROSOURCE / PROSTAT (PYXIS) 30 ML UDC GT SCH ×2 (08:56→16:46)
[2017-03-01] MEDS: Z GUARD REMEDY 4 OZ OINT TP SCH ×6 (08:58→20:30)
[2017-03-01] MEDS: HIBICLENS TP SCH (08:58)
[2017-03-01] MEDS: VITAMINS A AND D 56.7 GM TUBE TP SCH ×2 (08:58→20:31)
[2017-03-01] MEDS: BALM TP SCH ×2 (08:58→20:30)
[2017-03-01] MEDS: HYDROGEN PEROXIDE 480 ML BOTTLE TP SCH ×2 (08:58→20:30)
[2017-03-01] MEDS: GLYTROL 1,000 ML BAG GT PRN (16:30)
[2017-03-01 19:36] VITALS: BP 102/65
[2017-03-01] MEDS: ASCORBIC ACID 500 MG TABLET GT SCH (20:29)
[2017-03-01] MEDS: MULTIVIT, IRON, MIN NO. 8, FA 1 TAB GT SCH (20:29)
[2017-03-01] MEDS: SENNOSIDES 8.6 MG TABLET GT SCH (20:29)
[2017-03-02] MEDS: ALBUTEROL FS 2.5 MG/3 ML VIAL.NEB NEB SCH ×4 (00:41→19:57)
[2017-03-02] MEDS: GLYTROL 1,000 ML BAG GT PRN ×2 (03:58→23:32)
[2017-03-02] MEDS: DEXILANT 30 MG GT SCH (05:05)
[2017-03-02] MEDS: BLOOD SUGAR DIAGNOSTIC 1 EACH STRIP IN SCH ×2 (05:05→17:12)
[2017-03-02 08:00] VITALS: BP 124/62
[2017-03-02] MEDS: PROSOURCE / PROSTAT (PYXIS) 30 ML UDC GT SCH ×2 (09:00→16:11)
[2017-03-02] MEDS: ACIDOPHILUS/BULGARICUS 1 EACH TAB.CHEW PO SCH ×3 (09:00→16:11)
[2017-03-02] MEDS: CALCIUM CARBONATE 500 MG TAB.CHEW GT SCH ×2 (09:00→16:11)
[2017-03-02] MEDS: HIBICLENS TP SCH (09:00)
[2017-03-02] MEDS: BALM TP SCH ×2 (09:00→21:05)
[2017-03-02] MEDS: ASPIRIN 81 MG TAB.CHEW GT SCH (09:00)
[2017-03-02] MEDS: Z GUARD REMEDY 4 OZ OINT TP SCH ×6 (09:00→21:06)
[2017-03-02] MEDS: VITAMINS A AND D 56.7 GM TUBE TP SCH ×2 (09:00→21:06)
[2017-03-02] MEDS: HYDROGEN PEROXIDE 480 ML BOTTLE TP SCH ×2 (09:00→21:05)
[2017-03-02] MEDS: TRILEPTAL GT SCH ×2 (09:00→20:54)
[2017-03-02] MEDS: LEVETIRACETAM SOL (5 ML) 100 MG/ML UDC GT SCH ×2 (09:00→21:04)
--- NOTE | 2017-03-02 14:00 | NUR ---
WOUND CARE CONSULT: PT PRESENTS WITH RE-OPENED STAGE 3 ULCER TO SACRUM. WOUND MEASURES 1CM X 0.5CM X 0.1CM AND IS RED IN COLOR WITH SCANT PINK DRAINAGE, NO ODOR. SCARRING NOTED TO SURROUNDING AREA WITH SOME EXCORIATED AREAS ON BUTTOCKS. RECOMMENDATIONS MADE FOR SKIN PROTECTION AND WOUND CARE. HYDROGEL TO BE USED FOR OPEN AREA, Z GUARD FOR SURROUNDING SKIN, COVER WITH MEPILEX AND OFFLOAD. SKIN TO BE KEPT CLEAN AND DRY. PT IS INCONTINENT OF STOOL. DISCUSSED SKIN PROTECTION AND WOUND CARE WITH NURSING STAFF. PT ON FIRST STEP MATTRESS. WILL SEE PRN. TAYLOR IN AGREEMENT WITH PLAN OF CARE.
--- NOTE | 2017-03-02 15:00 | NUR ---
F/C changed as ordered. New F/C with clean yellow urine. Tolerated procedure well. Kept clean and comfortable. No distress noted. All needs met and attended.
--- NOTE | 2017-03-02 15:21 | NUR ---
Pt was seen by wound nurse Jaye. Pt noted with reopened Stage III sacral wound. Received order to apply Hydrogel to open area, Z-guard to periwound, cover with Mepilex q shift and PRN for soiling for 30 days. Notified Beckie. Pt's sister Beckie came to visit.
[2017-03-02] MEDS ORDERED: Z GUARD REMEDY 2 OZ OINT TP PRN (15:30)
[2017-03-02] MEDS ORDERED: HYDROGEL DRESSING 90 GM TUBE TP PRN (15:30)
[2017-03-02 19:58] VITALS: BP 132/74
[2017-03-02] MEDS: SENNOSIDES 8.6 MG TABLET GT SCH (20:54)
[2017-03-02] MEDS: ASCORBIC ACID 500 MG TABLET GT SCH (20:54)
[2017-03-02] MEDS: MULTIVIT, IRON, MIN NO. 8, FA 1 TAB GT SCH (20:57)
[2017-03-02] MEDS: HYDROGEL DRESSING 90 GM TUBE TP SCH (21:05)
[2017-03-02] MEDS: Z GUARD REMEDY 2 OZ OINT TP SCH (21:06)
[2017-03-03] MEDS: ALBUTEROL FS 2.5 MG/3 ML VIAL.NEB NEB SCH ×4 (01:05→20:10)
--- NOTE | 2017-03-03 05:51 | NUR ---
[employer] DIVER NOTES BLOOD SUGAR 113 NO INSULIN GIVEN NO SIGNS OF HYPO GLYCEMIA NOTED. PT STILL ON G-TUBE FEEDING TOLERATED WELL NO ASPIRATION NOTED. ALL DUE MEDS GIVEN AND ALL NEEDS MET. WILL CONTINUE TO MONITOR.
[2017-03-03] MEDS: BLOOD SUGAR DIAGNOSTIC 1 EACH STRIP IN SCH ×2 (06:13→18:13)
[2017-03-03] MEDS: DEXILANT 30 MG GT SCH (06:13)
[2017-03-03 07:53] VITALS: BP 117/72
[2017-03-03] MEDS: HYDROGEN PEROXIDE 480 ML BOTTLE TP SCH ×2 (09:00→20:42)
[2017-03-03] MEDS: Z GUARD REMEDY 4 OZ OINT TP SCH ×6 (09:00→20:42)
[2017-03-03] MEDS: BALM TP SCH ×2 (09:00→20:42)
[2017-03-03] MEDS: CALCIUM CARBONATE 500 MG TAB.CHEW GT SCH ×2 (09:00→17:00)
[2017-03-03] MEDS: ASPIRIN 81 MG TAB.CHEW GT SCH (09:00)
[2017-03-03] MEDS: ACIDOPHILUS/BULGARICUS 1 EACH TAB.CHEW PO SCH ×3 (09:00→17:00)
[2017-03-03] MEDS: HYDROGEL DRESSING 90 GM TUBE TP SCH ×2 (09:00→20:41)
[2017-03-03] MEDS: PROSOURCE / PROSTAT (PYXIS) 30 ML UDC GT SCH ×2 (09:00→17:00)
[2017-03-03] MEDS: Z GUARD REMEDY 2 OZ OINT TP SCH ×2 (09:00→20:42)
[2017-03-03] MEDS: TRILEPTAL GT SCH ×2 (09:00→20:41)
[2017-03-03] MEDS: LEVETIRACETAM SOL (5 ML) 100 MG/ML UDC GT SCH ×2 (09:00→20:41)
[2017-03-03] MEDS: VITAMINS A AND D 56.7 GM TUBE TP SCH ×2 (09:00→20:42)
--- NOTE | 2017-03-03 13:09 | NUR ---
Informed by charge nurse that resident's sister requesting ip/mosaic technician visit to trim resident's nails. Informed Ambrosio Naik DPM and he stated he will come and see the resident tomorrow. Charge nurse informed.
[2017-03-03 19:53] VITALS: BP 137/58
[2017-03-03] MEDS: ASCORBIC ACID 500 MG TABLET GT SCH (20:41)
[2017-03-03] MEDS: MULTIVIT, IRON, MIN NO. 8, FA 1 TAB GT SCH (20:41)
[2017-03-03] MEDS: SENNOSIDES 8.6 MG TABLET GT SCH (20:41)
[2017-03-03] MEDS: MAGNESIUM HYDROXIDE 30 ML UDC GT PRN (20:42)
[2017-03-04] MEDS: ALBUTEROL FS 2.5 MG/3 ML VIAL.NEB NEB SCH ×4 (00:56→19:25)
[2017-03-04] MEDS: BLOOD SUGAR DIAGNOSTIC 1 EACH STRIP IN SCH ×2 (05:18→17:09)
[2017-03-04] MEDS: DEXILANT 30 MG GT SCH (05:18)
[2017-03-04] MEDS: INSULIN REGULAR, HUMAN 100 UNIT/ML 3 ML VIAL SQ PRN ×2 (05:19→17:19)
[2017-03-04] MEDS: BISACODYL SUPP (10 MG) 10 MG/SUPP.RECT SUPP.RECT RC PRN (05:19)
[2017-03-04 07:57] VITALS: BP 119/65
[2017-03-04] MEDS: TRILEPTAL GT SCH ×2 (09:00→21:17)
[2017-03-04] MEDS: PROSOURCE / PROSTAT (PYXIS) 30 ML UDC GT SCH ×2 (09:00→17:09)
[2017-03-04] MEDS: CALCIUM CARBONATE 500 MG TAB.CHEW GT SCH ×2 (09:00→17:09)
[2017-03-04] MEDS: ACIDOPHILUS/BULGARICUS 1 EACH TAB.CHEW PO SCH ×3 (09:00→17:09)
[2017-03-04] MEDS: ASPIRIN 81 MG TAB.CHEW GT SCH (09:00)
[2017-03-04] MEDS: LEVETIRACETAM SOL (5 ML) 100 MG/ML UDC GT SCH ×2 (09:00→21:17)
[2017-03-04] MEDS: GLYTROL 1,000 ML BAG GT PRN (10:18)
[2017-03-04] MEDS: HYDROGEL DRESSING 90 GM TUBE TP SCH ×2 (13:14→21:17)
[2017-03-04] MEDS: Z GUARD REMEDY 2 OZ OINT TP SCH ×2 (13:14→21:18)
[2017-03-04] MEDS: HYDROGEN PEROXIDE 480 ML BOTTLE TP SCH ×2 (13:14→21:18)
[2017-03-04] MEDS: BALM TP SCH ×2 (13:14→21:18)
[2017-03-04] MEDS: Z GUARD REMEDY 4 OZ OINT TP SCH ×6 (13:14→21:20)
[2017-03-04] MEDS: VITAMINS A AND D 56.7 GM TUBE TP SCH ×2 (13:15→21:21)
[2017-03-04 19:35] VITALS: BP 118/80
[2017-03-04] MEDS: ASCORBIC ACID 500 MG TABLET GT SCH (21:17)
[2017-03-04] MEDS: SENNOSIDES 8.6 MG TABLET GT SCH (21:17)
[2017-03-04] MEDS: MULTIVIT, IRON, MIN NO. 8, FA 1 TAB GT SCH (21:17)
[2017-03-05] MEDS: GLYTROL 1,000 ML BAG GT PRN ×2 (00:43→17:27)
[2017-03-05] MEDS: ALBUTEROL FS 2.5 MG/3 ML VIAL.NEB NEB SCH ×4 (01:31→20:19)
[2017-03-05] MEDS: INSULIN REGULAR, HUMAN 100 UNIT/ML 3 ML VIAL SQ PRN (05:43)
[2017-03-05] MEDS: DEXILANT 30 MG GT SCH (05:43)
[2017-03-05] MEDS: BLOOD SUGAR DIAGNOSTIC 1 EACH STRIP IN SCH ×2 (05:43→18:04)
[2017-03-05 08:00] VITALS: BP_SYST 114; BP_SYST 137; BP_DIAS 67; BP_DIAS 73
[2017-03-05] MEDS: ASPIRIN 81 MG TAB.CHEW GT SCH (09:06)
[2017-03-05] MEDS: TRILEPTAL GT SCH ×2 (09:06→21:26)
[2017-03-05] MEDS: ACIDOPHILUS/BULGARICUS 1 EACH TAB.CHEW PO SCH ×3 (09:06→17:27)
[2017-03-05] MEDS: LEVETIRACETAM SOL (5 ML) 100 MG/ML UDC GT SCH ×2 (09:06→21:26)
[2017-03-05] MEDS: CALCIUM CARBONATE 500 MG TAB.CHEW GT SCH ×2 (09:06→17:27)
[2017-03-05] MEDS: PROSOURCE / PROSTAT (PYXIS) 30 ML UDC GT SCH ×2 (09:06→17:27)
[2017-03-05] MEDS: Z GUARD REMEDY 2 OZ OINT TP SCH ×2 (09:07→21:26)
[2017-03-05] MEDS: HYDROGEL DRESSING 90 GM TUBE TP SCH ×2 (09:07→21:26)
[2017-03-05] MEDS: HYDROGEN PEROXIDE 480 ML BOTTLE TP SCH ×2 (09:07→21:26)
[2017-03-05] MEDS: BALM TP SCH ×2 (09:07→21:26)
[2017-03-05] MEDS: Z GUARD REMEDY 4 OZ OINT TP SCH ×6 (09:07→21:27)
[2017-03-05] MEDS: VITAMINS A AND D 56.7 GM TUBE TP SCH ×2 (09:07→21:28)
[2017-03-05 19:30] VITALS: BP 132/90
[2017-03-05] MEDS: MULTIVIT, IRON, MIN NO. 8, FA 1 TAB GT SCH (21:26)
[2017-03-05] MEDS: SENNOSIDES 8.6 MG TABLET GT SCH (21:26)
[2017-03-05] MEDS: ASCORBIC ACID 500 MG TABLET GT SCH (21:26)
[2017-03-06] MEDS: ALBUTEROL FS 2.5 MG/3 ML VIAL.NEB NEB SCH ×4 (01:19→19:53)
[2017-03-06] MEDS: DEXILANT 30 MG GT SCH (05:36)
[2017-03-06] MEDS: BLOOD SUGAR DIAGNOSTIC 1 EACH STRIP IN SCH ×2 (05:36→18:21)
[2017-03-06] MEDS: INSULIN REGULAR, HUMAN 100 UNIT/ML 3 ML VIAL SQ PRN ×2 (05:36→18:28)
[2017-03-06] MEDS: GLYTROL 1,000 ML BAG GT PRN ×2 (05:49→23:24)
[2017-03-06 07:40] VITALS: BP 146/74
[2017-03-06] MEDS: PROSOURCE / PROSTAT (PYXIS) 30 ML UDC GT SCH ×2 (09:00→17:00)
[2017-03-06] MEDS: Z GUARD REMEDY 2 OZ OINT TP SCH ×2 (09:00→21:23)
[2017-03-06] MEDS: LEVETIRACETAM SOL (5 ML) 100 MG/ML UDC GT SCH ×2 (09:00→21:23)
[2017-03-06] MEDS: VITAMINS A AND D 56.7 GM TUBE TP SCH ×2 (09:00→21:24)
[2017-03-06] MEDS: ACIDOPHILUS/BULGARICUS 1 EACH TAB.CHEW PO SCH ×3 (09:00→17:00)
[2017-03-06] MEDS: Z GUARD REMEDY 4 OZ OINT TP SCH ×6 (09:00→21:24)
[2017-03-06] MEDS: CALCIUM CARBONATE 500 MG TAB.CHEW GT SCH ×2 (09:00→17:00)
[2017-03-06] MEDS: ASPIRIN 81 MG TAB.CHEW GT SCH (09:00)
[2017-03-06] MEDS: TRILEPTAL GT SCH ×2 (09:00→21:22)
[2017-03-06] MEDS: HYDROGEN PEROXIDE 480 ML BOTTLE TP SCH ×2 (09:01→21:23)
[2017-03-06] MEDS: BALM TP SCH ×2 (09:01→21:23)
[2017-03-06] MEDS: HYDROGEL DRESSING 90 GM TUBE TP SCH ×2 (09:01→21:23)
--- NOTE | 2017-03-06 14:15 | NUR ---
Informed by Dr. Naik (leader tier) that he trimmed resident's toe nails. Resident is assigned to leader tier Dr. Craig and Dr. Craig will continue to follow the resident. Informed the resident's sister Beckie who stated that she will check resident's toe nails tomorrow when she visits.
[2017-03-06 19:32] VITALS: BP 116/65
[2017-03-06] MEDS: ASCORBIC ACID 500 MG TABLET GT SCH (21:23)
[2017-03-06] MEDS: MULTIVIT, IRON, MIN NO. 8, FA 1 TAB GT SCH (21:23)
[2017-03-06] MEDS: SENNOSIDES 8.6 MG TABLET GT SCH (21:23)
[2017-03-07] MEDS: ALBUTEROL FS 2.5 MG/3 ML VIAL.NEB NEB SCH ×4 (02:03→19:37)
[2017-03-07] MEDS: DEXILANT 30 MG GT SCH (05:37)
[2017-03-07] MEDS: BLOOD SUGAR DIAGNOSTIC 1 EACH STRIP IN SCH ×2 (05:38→17:16)
[2017-03-07] MEDS: INSULIN REGULAR, HUMAN 100 UNIT/ML 3 ML VIAL SQ PRN ×2 (05:38→17:16)
[2017-03-07 07:09] VITALS: BP 114/56
[2017-03-07] MEDS: VITAMINS A AND D 56.7 GM TUBE TP SCH ×2 (09:00→21:14)
[2017-03-07] MEDS: Z GUARD REMEDY 4 OZ OINT TP SCH ×6 (09:00→21:14)
[2017-03-07] MEDS: HYDROGEN PEROXIDE 480 ML BOTTLE TP SCH ×2 (09:00→21:14)
[2017-03-07] MEDS: BALM TP SCH ×2 (09:00→21:14)
[2017-03-07] MEDS: HYDROGEL DRESSING 90 GM TUBE TP SCH ×2 (09:00→21:13)
[2017-03-07] MEDS: Z GUARD REMEDY 2 OZ OINT TP SCH ×2 (09:00→21:14)
[2017-03-07] MEDS: ASPIRIN 81 MG TAB.CHEW GT SCH (09:16)
[2017-03-07] MEDS: TRILEPTAL GT SCH ×2 (09:16→21:13)
[2017-03-07] MEDS: LEVETIRACETAM SOL (5 ML) 100 MG/ML UDC GT SCH ×2 (09:16→21:13)
[2017-03-07] MEDS: PROSOURCE / PROSTAT (PYXIS) 30 ML UDC GT SCH ×2 (09:18→15:26)
[2017-03-07] MEDS: ACIDOPHILUS/BULGARICUS 1 EACH TAB.CHEW PO SCH ×3 (09:18→17:16)
[2017-03-07] MEDS: CALCIUM CARBONATE 500 MG TAB.CHEW GT SCH ×2 (09:18→15:26)
[2017-03-07] MEDS: GLYTROL 1,000 ML BAG GT PRN (15:27)
[2017-03-07 19:31] VITALS: BP 148/71
[2017-03-07] MEDS: SENNOSIDES 8.6 MG TABLET GT SCH (21:13)
[2017-03-07] MEDS: MULTIVIT, IRON, MIN NO. 8, FA 1 TAB GT SCH (21:13)
[2017-03-07] MEDS: ASCORBIC ACID 500 MG TABLET GT SCH (21:13)
[2017-03-08] MEDS: ALBUTEROL FS 2.5 MG/3 ML VIAL.NEB NEB SCH ×4 (02:16→19:34)
[2017-03-08] MEDS: DEXILANT 30 MG GT SCH (05:20)
[2017-03-08] MEDS: INSULIN REGULAR, HUMAN 100 UNIT/ML 3 ML VIAL SQ PRN ×2 (05:20→18:18)
[2017-03-08] MEDS: BLOOD SUGAR DIAGNOSTIC 1 EACH STRIP IN SCH ×2 (05:20→18:17)
[2017-03-08 07:27] VITALS: BP 109/65
[2017-03-08] MEDS: Z GUARD REMEDY 4 OZ OINT TP SCH ×6 (09:00→21:39)
[2017-03-08] MEDS: TRILEPTAL GT SCH ×2 (09:00→21:38)
[2017-03-08] MEDS: ACIDOPHILUS/BULGARICUS 1 EACH TAB.CHEW PO SCH ×3 (09:00→16:57)
[2017-03-08] MEDS: LEVETIRACETAM SOL (5 ML) 100 MG/ML UDC GT SCH ×2 (09:00→21:38)
[2017-03-08] MEDS: BALM TP SCH ×2 (09:00→21:38)
[2017-03-08] MEDS: CALCIUM CARBONATE 500 MG TAB.CHEW GT SCH ×2 (09:00→16:57)
[2017-03-08] MEDS: HYDROGEL DRESSING 90 GM TUBE TP SCH ×2 (09:00→21:38)
[2017-03-08] MEDS: Z GUARD REMEDY 2 OZ OINT TP SCH ×2 (09:00→21:38)
[2017-03-08] MEDS: VITAMINS A AND D 56.7 GM TUBE TP SCH ×2 (09:00→21:39)
[2017-03-08] MEDS: HYDROGEN PEROXIDE 480 ML BOTTLE TP SCH ×2 (09:00→21:38)
[2017-03-08] MEDS: PROSOURCE / PROSTAT (PYXIS) 30 ML UDC GT SCH ×2 (09:00→16:57)
[2017-03-08] MEDS: ASPIRIN 81 MG TAB.CHEW GT SCH (09:00)
[2017-03-08] MEDS: GLYTROL 1,000 ML BAG GT PRN (16:58)
[2017-03-08 20:01] VITALS: BP 130/77
[2017-03-08] MEDS: MULTIVIT, IRON, MIN NO. 8, FA 1 TAB GT SCH (21:38)
[2017-03-08] MEDS: ASCORBIC ACID 500 MG TABLET GT SCH (21:38)
[2017-03-08] MEDS: SENNOSIDES 8.6 MG TABLET GT SCH (21:38)
[2017-03-09] MEDS: ALBUTEROL FS 2.5 MG/3 ML VIAL.NEB NEB SCH ×4 (01:30→20:15)
[2017-03-09] MEDS: MAGNESIUM HYDROXIDE 30 ML UDC GT PRN (04:23)
[2017-03-09] MEDS: DEXILANT 30 MG GT SCH (05:47)
[2017-03-09] MEDS: INSULIN REGULAR, HUMAN 100 UNIT/ML 3 ML VIAL SQ PRN ×2 (05:47→18:28)
[2017-03-09] MEDS: BLOOD SUGAR DIAGNOSTIC 1 EACH STRIP IN SCH ×2 (05:47→18:27)
[2017-03-09 07:45] VITALS: BP 112/66
[2017-03-09] MEDS: PROSOURCE / PROSTAT (PYXIS) 30 ML UDC GT SCH ×2 (09:00→17:00)
[2017-03-09] MEDS: BALM TP SCH ×2 (09:00→21:00)
[2017-03-09] MEDS: HYDROGEN PEROXIDE 480 ML BOTTLE TP SCH ×2 (09:00→21:00)
[2017-03-09] MEDS: ASPIRIN 81 MG TAB.CHEW GT SCH (09:00)
[2017-03-09] MEDS: TRILEPTAL GT SCH ×2 (09:00→21:00)
[2017-03-09] MEDS: VITAMINS A AND D 56.7 GM TUBE TP SCH ×2 (09:00→21:00)
[2017-03-09] MEDS: LEVETIRACETAM SOL (5 ML) 100 MG/ML UDC GT SCH ×2 (09:00→21:00)
[2017-03-09] MEDS: Z GUARD REMEDY 4 OZ OINT TP SCH ×6 (09:00→21:00)
[2017-03-09] MEDS: HYDROGEL DRESSING 90 GM TUBE TP SCH ×2 (09:00→21:00)
[2017-03-09] MEDS: CALCIUM CARBONATE 500 MG TAB.CHEW GT SCH ×2 (09:00→17:00)
[2017-03-09] MEDS: Z GUARD REMEDY 2 OZ OINT TP SCH ×2 (09:00→21:00)
[2017-03-09] MEDS: ACIDOPHILUS/BULGARICUS 1 EACH TAB.CHEW PO SCH ×3 (09:00→17:00)
[2017-03-09] MEDS: GLYTROL 1,000 ML BAG GT PRN (11:09)
--- NOTE | 2017-03-09 15:21 | NUR ---
Seen and examined by NAN Vargas with no new orders.
[2017-03-09 20:10] VITALS: BP 107/69
[2017-03-09] MEDS: ASCORBIC ACID 500 MG TABLET GT SCH (21:00)
[2017-03-09] MEDS: SENNOSIDES 8.6 MG TABLET GT SCH (21:00)
[2017-03-09] MEDS: MULTIVIT, IRON, MIN NO. 8, FA 1 TAB GT SCH (21:00)
[2017-03-10] MEDS: ALBUTEROL FS 2.5 MG/3 ML VIAL.NEB NEB SCH ×4 (02:11→19:47)
[2017-03-10] MEDS: GLYTROL 1,000 ML BAG GT PRN ×2 (04:26→17:59)
[2017-03-10] MEDS: BLOOD SUGAR DIAGNOSTIC 1 EACH STRIP IN SCH ×2 (06:17→18:33)
[2017-03-10] MEDS: DEXILANT 30 MG GT SCH (06:17)
[2017-03-10 07:34] VITALS: BP 101/54
[2017-03-10] MEDS: TRILEPTAL GT SCH ×2 (08:42→21:40)
[2017-03-10] MEDS: PROSOURCE / PROSTAT (PYXIS) 30 ML UDC GT SCH ×2 (08:42→17:46)
[2017-03-10] MEDS: CALCIUM CARBONATE 500 MG TAB.CHEW GT SCH ×2 (08:42→17:46)
[2017-03-10] MEDS: ACIDOPHILUS/BULGARICUS 1 EACH TAB.CHEW PO SCH ×3 (08:42→17:46)
[2017-03-10] MEDS: ASPIRIN 81 MG TAB.CHEW GT SCH (08:42)
[2017-03-10] MEDS: LEVETIRACETAM SOL (5 ML) 100 MG/ML UDC GT SCH ×2 (08:42→21:40)
[2017-03-10] MEDS: HYDROGEL DRESSING 90 GM TUBE TP SCH ×2 (08:42→21:41)
[2017-03-10] MEDS: BALM TP SCH ×2 (08:43→21:41)
[2017-03-10] MEDS: Z GUARD REMEDY 2 OZ OINT TP SCH ×2 (08:43→21:41)
[2017-03-10] MEDS: HYDROGEN PEROXIDE 480 ML BOTTLE TP SCH ×2 (08:43→21:41)
[2017-03-10] MEDS: Z GUARD REMEDY 4 OZ OINT TP SCH ×6 (08:43→21:41)
[2017-03-10] MEDS: VITAMINS A AND D 56.7 GM TUBE TP SCH ×2 (08:44→21:41)
--- NOTE | 2017-03-10 10:01 | NUR ---
Seen and examined by Dr. Felix, NNO given.
[2017-03-10] MEDS: INSULIN REGULAR, HUMAN 100 UNIT/ML 3 ML VIAL SQ PRN (18:34)
[2017-03-10 20:01] VITALS: BP 134/107
[2017-03-10] MEDS: SENNOSIDES 8.6 MG TABLET GT SCH (21:40)
[2017-03-10] MEDS: ASCORBIC ACID 500 MG TABLET GT SCH (21:41)
[2017-03-10] MEDS: MULTIVIT, IRON, MIN NO. 8, FA 1 TAB GT SCH (21:41)
[2017-03-11] MEDS: ALBUTEROL FS 2.5 MG/3 ML VIAL.NEB NEB SCH ×4 (01:07→19:41)
[2017-03-11] MEDS: DEXILANT 30 MG GT SCH (05:14)
[2017-03-11] MEDS: BLOOD SUGAR DIAGNOSTIC 1 EACH STRIP IN SCH ×2 (05:47→18:08)
[2017-03-11 08:25] VITALS: BP 94/45
[2017-03-11] MEDS: HYDROGEL DRESSING 90 GM TUBE TP SCH ×2 (09:00→21:46)
[2017-03-11] MEDS: TRILEPTAL GT SCH ×2 (09:00→21:45)
[2017-03-11] MEDS: ACIDOPHILUS/BULGARICUS 1 EACH TAB.CHEW PO SCH ×3 (09:00→17:10)
[2017-03-11] MEDS: PROSOURCE / PROSTAT (PYXIS) 30 ML UDC GT SCH ×2 (09:00→17:10)
[2017-03-11] MEDS: VITAMINS A AND D 56.7 GM TUBE TP SCH ×2 (09:00→21:48)
[2017-03-11] MEDS: BALM TP SCH ×2 (09:00→21:46)
[2017-03-11] MEDS: CALCIUM CARBONATE 500 MG TAB.CHEW GT SCH ×2 (09:00→17:10)
[2017-03-11] MEDS: Z GUARD REMEDY 2 OZ OINT TP SCH ×2 (09:00→21:47)
[2017-03-11] MEDS: HYDROGEN PEROXIDE 480 ML BOTTLE TP SCH ×2 (09:00→21:46)
[2017-03-11] MEDS: Z GUARD REMEDY 4 OZ OINT TP SCH ×6 (09:00→21:47)
[2017-03-11] MEDS: LEVETIRACETAM SOL (5 ML) 100 MG/ML UDC GT SCH ×2 (09:00→21:45)
[2017-03-11] MEDS: ASPIRIN 81 MG TAB.CHEW GT SCH (09:00)
[2017-03-11] MEDS: GLYTROL 1,000 ML BAG GT PRN (14:50)
[2017-03-11 19:51] VITALS: BP 117/72
[2017-03-11] MEDS: SENNOSIDES 8.6 MG TABLET GT SCH (21:45)
[2017-03-11] MEDS: MULTIVIT, IRON, MIN NO. 8, FA 1 TAB GT SCH (21:45)
[2017-03-11] MEDS: ASCORBIC ACID 500 MG TABLET GT SCH (21:46)
[2017-03-12] MEDS: ALBUTEROL FS 2.5 MG/3 ML VIAL.NEB NEB SCH ×4 (01:25→19:29)
[2017-03-12] MEDS: BLOOD SUGAR DIAGNOSTIC 1 EACH STRIP IN SCH ×2 (05:59→17:27)
[2017-03-12] MEDS: DEXILANT 30 MG GT SCH (05:59)
[2017-03-12] MEDS: GLYTROL 1,000 ML BAG GT PRN ×2 (05:59→22:15)
[2017-03-12] MEDS: INSULIN REGULAR, HUMAN 100 UNIT/ML 3 ML VIAL SQ PRN (06:00)
[2017-03-12 07:25] VITALS: BP 110/78
[2017-03-12] MEDS: HYDROGEL DRESSING 90 GM TUBE TP SCH ×2 (09:00→21:00)
[2017-03-12] MEDS: ASPIRIN 81 MG TAB.CHEW GT SCH (09:00)
[2017-03-12] MEDS: LEVETIRACETAM SOL (5 ML) 100 MG/ML UDC GT SCH ×2 (09:00→21:00)
[2017-03-12] MEDS: HYDROGEN PEROXIDE 480 ML BOTTLE TP SCH ×2 (09:00→21:00)
[2017-03-12] MEDS: Z GUARD REMEDY 2 OZ OINT TP SCH ×2 (09:00→21:00)
[2017-03-12] MEDS: ACIDOPHILUS/BULGARICUS 1 EACH TAB.CHEW PO SCH ×3 (09:00→17:27)
[2017-03-12] MEDS: CALCIUM CARBONATE 500 MG TAB.CHEW GT SCH ×2 (09:00→17:27)
[2017-03-12] MEDS: TRILEPTAL GT SCH ×2 (09:00→21:00)
[2017-03-12] MEDS: Z GUARD REMEDY 4 OZ OINT TP SCH ×6 (09:00→21:00)
[2017-03-12] MEDS: PROSOURCE / PROSTAT (PYXIS) 30 ML UDC GT SCH ×2 (09:00→17:27)
[2017-03-12] MEDS: BALM TP SCH ×2 (09:00→21:00)
[2017-03-12] MEDS: VITAMINS A AND D 56.7 GM TUBE TP SCH ×2 (09:00→21:00)
[2017-03-12] MEDS: MULTIVIT, IRON, MIN NO. 8, FA 1 TAB GT SCH (21:00)
[2017-03-12] MEDS: SENNOSIDES 8.6 MG TABLET GT SCH (21:00)
[2017-03-12] MEDS: ASCORBIC ACID 500 MG TABLET GT SCH (21:00)
[2017-03-13] MEDS: ALBUTEROL FS 2.5 MG/3 ML VIAL.NEB NEB SCH ×4 (02:07→19:51)
[2017-03-13] MEDS: DEXILANT 30 MG GT SCH (06:10)
[2017-03-13] MEDS: BLOOD SUGAR DIAGNOSTIC 1 EACH STRIP IN SCH ×2 (06:10→17:52)
[2017-03-13] MEDS: INSULIN REGULAR, HUMAN 100 UNIT/ML 3 ML VIAL SQ PRN (06:12)
[2017-03-13] MEDS: BISACODYL SUPP (10 MG) 10 MG/SUPP.RECT SUPP.RECT RC PRN (06:52)
[2017-03-13 08:17] VITALS: BP 120/69
[2017-03-13] MEDS: HYDROGEL DRESSING 90 GM TUBE TP SCH ×2 (09:00→21:37)
[2017-03-13] MEDS: BALM TP SCH ×2 (09:00→21:37)
[2017-03-13] MEDS: PROSOURCE / PROSTAT (PYXIS) 30 ML UDC GT SCH ×2 (09:00→17:52)
[2017-03-13] MEDS: LEVETIRACETAM SOL (5 ML) 100 MG/ML UDC GT SCH ×2 (09:00→21:36)
[2017-03-13] MEDS: TRILEPTAL GT SCH ×2 (09:00→21:36)
[2017-03-13] MEDS: Z GUARD REMEDY 4 OZ OINT TP SCH ×6 (09:00→21:38)
[2017-03-13] MEDS: ASPIRIN 81 MG TAB.CHEW GT SCH (09:00)
[2017-03-13] MEDS: CALCIUM CARBONATE 500 MG TAB.CHEW GT SCH ×2 (09:00→17:52)
[2017-03-13] MEDS: HYDROGEN PEROXIDE 480 ML BOTTLE TP SCH ×2 (09:00→21:37)
[2017-03-13] MEDS: VITAMINS A AND D 56.7 GM TUBE TP SCH ×2 (09:00→21:38)
[2017-03-13] MEDS: Z GUARD REMEDY 2 OZ OINT TP SCH ×2 (09:00→21:37)
[2017-03-13] MEDS: ACIDOPHILUS/BULGARICUS 1 EACH TAB.CHEW PO SCH ×3 (09:00→17:52)
--- NOTE | 2017-03-13 15:28 | NUR ---
Seen and examined by Dr. Montaño, notified MD that it was endorsed that patient's brother wants to know about the plan regarding the mass in patient's uterus and kidney stones, according to Dr. Montaño he spoke with resident's sister about this and suggested to have her brother speak with Beckie (sister). NNO given at this time.
[2017-03-13] MEDS: GLYTROL 1,000 ML BAG GT PRN (15:58)
[2017-03-13] MEDS: MAGNESIUM HYDROXIDE 30 ML UDC GT PRN (17:55)
[2017-03-13 20:24] VITALS: BP 136/72
[2017-03-13] MEDS: SENNOSIDES 8.6 MG TABLET GT SCH (21:36)
[2017-03-13] MEDS: MULTIVIT, IRON, MIN NO. 8, FA 1 TAB GT SCH (21:36)
[2017-03-13] MEDS: ASCORBIC ACID 500 MG TABLET GT SCH (21:37)
[2017-03-14] MEDS: ALBUTEROL FS 2.5 MG/3 ML VIAL.NEB NEB SCH ×4 (02:17→19:53)
[2017-03-14] MEDS: DEXILANT 30 MG GT SCH (05:59)
[2017-03-14] MEDS: BLOOD SUGAR DIAGNOSTIC 1 EACH STRIP IN SCH ×2 (05:59→17:39)
[2017-03-14] MEDS: GLYTROL 1,000 ML BAG GT PRN (06:00)
[2017-03-14] MEDS: INSULIN REGULAR, HUMAN 100 UNIT/ML 3 ML VIAL SQ PRN (06:05)
[2017-03-14 07:22] VITALS: BP 114/71
[2017-03-14] MEDS: ASPIRIN 81 MG TAB.CHEW GT SCH (09:16)
[2017-03-14] MEDS: HYDROGEN PEROXIDE 480 ML BOTTLE TP SCH ×2 (09:17→21:00)
[2017-03-14] MEDS: LEVETIRACETAM SOL (5 ML) 100 MG/ML UDC GT SCH ×2 (09:17→21:00)
[2017-03-14] MEDS: CALCIUM CARBONATE 500 MG TAB.CHEW GT SCH ×2 (09:17→16:25)
[2017-03-14] MEDS: HYDROGEL DRESSING 90 GM TUBE TP SCH ×2 (09:17→21:00)
[2017-03-14] MEDS: PROSOURCE / PROSTAT (PYXIS) 30 ML UDC GT SCH ×2 (09:17→16:25)
[2017-03-14] MEDS: BALM TP SCH ×2 (09:17→21:00)
[2017-03-14] MEDS: ACIDOPHILUS/BULGARICUS 1 EACH TAB.CHEW PO SCH ×3 (09:17→16:25)
[2017-03-14] MEDS: TRILEPTAL GT SCH ×2 (09:17→21:00)
[2017-03-14] MEDS: Z GUARD REMEDY 2 OZ OINT TP SCH ×2 (09:17→21:00)
[2017-03-14] MEDS: Z GUARD REMEDY 4 OZ OINT TP SCH ×5 (09:18→21:00)
[2017-03-14] MEDS: VITAMINS A AND D 56.7 GM TUBE TP SCH ×2 (09:18→21:00)
[2017-03-14 19:54] VITALS: BP 115/67
[2017-03-14] MEDS: ASCORBIC ACID 500 MG TABLET GT SCH (21:00)
[2017-03-14] MEDS: SENNOSIDES 8.6 MG TABLET GT SCH (21:00)
[2017-03-14] MEDS: MULTIVIT, IRON, MIN NO. 8, FA 1 TAB GT SCH (21:00)
[2017-03-15] MEDS: GLYTROL 1,000 ML BAG GT PRN ×2 (00:30→18:11)
[2017-03-15] MEDS: ALBUTEROL FS 2.5 MG/3 ML VIAL.NEB NEB SCH ×4 (01:22→20:20)
[2017-03-15] MEDS: DEXILANT 30 MG GT SCH (05:11)
[2017-03-15] MEDS: BLOOD SUGAR DIAGNOSTIC 1 EACH STRIP IN SCH ×2 (05:49→18:04)
--- NOTE | 2017-03-15 06:03 | NUR ---
rn notes bg 110. no insulin coverage needed at this time. on continuous gtube feeding.
[2017-03-15 08:00] VITALS: BP 121/73
[2017-03-15 08:08] VITALS: BP 133/76
[2017-03-15] MEDS: ACIDOPHILUS/BULGARICUS 1 EACH TAB.CHEW PO SCH ×3 (09:00→17:00)
[2017-03-15] MEDS: ASPIRIN 81 MG TAB.CHEW GT SCH (09:00)
[2017-03-15] MEDS: BALM TP SCH ×2 (09:00→21:26)
[2017-03-15] MEDS: HYDROGEL DRESSING 90 GM TUBE TP SCH ×2 (09:00→21:26)
[2017-03-15] MEDS: HYDROGEN PEROXIDE 480 ML BOTTLE TP SCH ×2 (09:00→21:26)
[2017-03-15] MEDS: Z GUARD REMEDY 2 OZ OINT TP SCH ×2 (09:00→21:26)
[2017-03-15] MEDS: VITAMINS A AND D 56.7 GM TUBE TP SCH ×2 (09:00→21:27)
[2017-03-15] MEDS: CALCIUM CARBONATE 500 MG TAB.CHEW GT SCH ×2 (09:00→17:00)
[2017-03-15] MEDS: Z GUARD REMEDY 4 OZ OINT TP SCH ×4 (09:00→21:27)
[2017-03-15] MEDS: PROSOURCE / PROSTAT (PYXIS) 30 ML UDC GT SCH ×2 (09:00→17:00)
[2017-03-15] MEDS: LEVETIRACETAM SOL (5 ML) 100 MG/ML UDC GT SCH ×2 (09:00→21:25)
[2017-03-15] MEDS: TRILEPTAL GT SCH ×2 (09:00→21:24)
[2017-03-15] MEDS ORDERED: FLU VACC QS 2017-18(36MOS+)/PF 0.5 ML DISP.SYRIN IM ONE (17:00)
[2017-03-15] MEDS: INSULIN REGULAR, HUMAN 100 UNIT/ML 3 ML VIAL SQ PRN (18:05)
[2017-03-15] MEDS: SENNOSIDES 8.6 MG TABLET GT SCH (21:25)
[2017-03-15] MEDS: MULTIVIT, IRON, MIN NO. 8, FA 1 TAB GT SCH (21:25)
[2017-03-15] MEDS: ASCORBIC ACID 500 MG TABLET GT SCH (21:26)
[2017-03-16] MEDS: ALBUTEROL FS 2.5 MG/3 ML VIAL.NEB NEB SCH ×4 (01:39→20:21)
[2017-03-16] MEDS: DEXILANT 30 MG GT SCH (05:29)
[2017-03-16] MEDS: BLOOD SUGAR DIAGNOSTIC 1 EACH STRIP IN SCH ×2 (05:30→18:00)
--- NOTE | 2017-03-16 06:55 | NUR ---
Flu Vac given @ 2100 last night, no A/R noted, pt remain afebrile, continue to monitor pt for any WHIT.
[2017-03-16] MEDS: HYDROGEL DRESSING 90 GM TUBE TP SCH ×2 (09:00→20:25)
[2017-03-16] MEDS: VITAMINS A AND D 56.7 GM TUBE TP SCH ×2 (09:00→20:26)
[2017-03-16] MEDS: TRILEPTAL GT SCH ×2 (09:00→20:24)
[2017-03-16] MEDS: HYDROGEN PEROXIDE 480 ML BOTTLE TP SCH ×2 (09:00→20:25)
[2017-03-16] MEDS: Z GUARD REMEDY 4 OZ OINT TP SCH ×4 (09:00→20:26)
[2017-03-16] MEDS: ACIDOPHILUS/BULGARICUS 1 EACH TAB.CHEW PO SCH ×3 (09:00→17:00)
[2017-03-16] MEDS: Z GUARD REMEDY 2 OZ OINT TP SCH ×2 (09:00→20:25)
[2017-03-16] MEDS: LEVETIRACETAM SOL (5 ML) 100 MG/ML UDC GT SCH ×2 (09:00→20:24)
[2017-03-16] MEDS: PROSOURCE / PROSTAT (PYXIS) 30 ML UDC GT SCH ×2 (09:00→17:00)
[2017-03-16] MEDS: CALCIUM CARBONATE 500 MG TAB.CHEW GT SCH ×2 (09:00→17:00)
[2017-03-16] MEDS: BALM TP SCH ×2 (09:00→20:25)
[2017-03-16] MEDS: ASPIRIN 81 MG TAB.CHEW GT SCH (09:00)
[2017-03-16] MEDS: GLYTROL 1,000 ML BAG GT PRN (14:38)
--- NOTE | 2017-03-16 18:05 | NUR ---
No adverse reaction to flu vaccine noted.
[2017-03-16] MEDS: INSULIN REGULAR, HUMAN 100 UNIT/ML 3 ML VIAL SQ PRN (19:12)
[2017-03-16] MEDS: SENNOSIDES 8.6 MG TABLET GT SCH (20:24)
[2017-03-16] MEDS: MULTIVIT, IRON, MIN NO. 8, FA 1 TAB GT SCH (20:25)
[2017-03-16] MEDS: ASCORBIC ACID 500 MG TABLET GT SCH (20:25)
--- NOTE | 2017-03-16 21:00 | NUR ---
RN NOTES No adverse reaction to flu vaccine noted.
[2017-03-17] MEDS: ALBUTEROL FS 2.5 MG/3 ML VIAL.NEB NEB SCH ×4 (01:33→19:30)
[2017-03-17] MEDS: GLYTROL 1,000 ML BAG GT PRN ×2 (04:09→23:01)
[2017-03-17] MEDS: BLOOD SUGAR DIAGNOSTIC 1 EACH STRIP IN SCH ×2 (05:54→18:00)
[2017-03-17] MEDS: DEXILANT 30 MG GT SCH (05:54)
[2017-03-17] MEDS: CALCIUM CARBONATE 500 MG TAB.CHEW GT SCH ×2 (09:49→17:12)
[2017-03-17] MEDS: ACIDOPHILUS/BULGARICUS 1 EACH TAB.CHEW PO SCH ×3 (09:49→17:12)
[2017-03-17] MEDS: LEVETIRACETAM SOL (5 ML) 100 MG/ML UDC GT SCH ×2 (09:49→20:28)
[2017-03-17] MEDS: HYDROGEL DRESSING 90 GM TUBE TP SCH ×2 (09:49→20:30)
[2017-03-17] MEDS: PROSOURCE / PROSTAT (PYXIS) 30 ML UDC GT SCH ×2 (09:49→17:12)
[2017-03-17] MEDS: TRILEPTAL GT SCH ×2 (09:49→20:28)
[2017-03-17] MEDS: ASPIRIN 81 MG TAB.CHEW GT SCH (09:49)
[2017-03-17] MEDS: HYDROGEN PEROXIDE 480 ML BOTTLE TP SCH ×2 (09:50→20:30)
[2017-03-17] MEDS: Z GUARD REMEDY 4 OZ OINT TP SCH ×4 (09:50→20:30)
[2017-03-17] MEDS: BALM TP SCH ×2 (09:50→20:30)
[2017-03-17] MEDS: Z GUARD REMEDY 2 OZ OINT TP SCH ×2 (09:50→20:30)
[2017-03-17] MEDS: VITAMINS A AND D 56.7 GM TUBE TP SCH ×2 (09:50→20:31)
--- NOTE | 2017-03-17 19:03 | NUR ---
No adverse reaction to flu vaccine noted.
[2017-03-17] MEDS: INSULIN REGULAR, HUMAN 100 UNIT/ML 3 ML VIAL SQ PRN (19:05)
[2017-03-17 20:04] VITALS: BP 116/66
[2017-03-17] MEDS: SENNOSIDES 8.6 MG TABLET GT SCH (20:29)
[2017-03-17] MEDS: MULTIVIT, IRON, MIN NO. 8, FA 1 TAB GT SCH (20:29)
[2017-03-17] MEDS: ASCORBIC ACID 500 MG TABLET GT SCH (20:30)
[2017-03-18] MEDS: ALBUTEROL FS 2.5 MG/3 ML VIAL.NEB NEB SCH ×4 (01:26→19:22)
[2017-03-18] MEDS: BLOOD SUGAR DIAGNOSTIC 1 EACH STRIP IN SCH ×2 (05:35→17:52)
[2017-03-18] MEDS: DEXILANT 30 MG GT SCH (05:35)
[2017-03-18 07:33] VITALS: BP 130/78
[2017-03-18] MEDS: LEVETIRACETAM SOL (5 ML) 100 MG/ML UDC GT SCH ×2 (09:37→21:12)
[2017-03-18] MEDS: ACIDOPHILUS/BULGARICUS 1 EACH TAB.CHEW PO SCH ×3 (09:37→17:28)
[2017-03-18] MEDS: Z GUARD REMEDY 4 OZ OINT TP SCH ×4 (09:37→21:12)
[2017-03-18] MEDS: VITAMINS A AND D 56.7 GM TUBE TP SCH ×2 (09:37→21:12)
[2017-03-18] MEDS: ASPIRIN 81 MG TAB.CHEW GT SCH (09:37)
[2017-03-18] MEDS: HYDROGEL DRESSING 90 GM TUBE TP SCH ×2 (09:37→21:12)
[2017-03-18] MEDS: PROSOURCE / PROSTAT (PYXIS) 30 ML UDC GT SCH ×2 (09:37→17:28)
[2017-03-18] MEDS: TRILEPTAL GT SCH ×2 (09:37→21:12)
[2017-03-18] MEDS: HYDROGEN PEROXIDE 480 ML BOTTLE TP SCH ×2 (09:37→21:12)
[2017-03-18] MEDS: CALCIUM CARBONATE 500 MG TAB.CHEW GT SCH ×2 (09:37→17:28)
[2017-03-18] MEDS: Z GUARD REMEDY 2 OZ OINT TP SCH ×2 (09:37→21:12)
[2017-03-18] MEDS: BALM TP SCH ×2 (09:37→21:12)
--- NOTE | 2017-03-18 11:40 | NUR ---
Informed sister Beckie that resident will be moved to an ICU room while they make upgrades to resident's current room. was informed to check in with the charge nurse when visiting to see what room resident was assigned to. Appreciated the information.
[2017-03-18] MEDS: LORAZEPAM 1 MG TABLET GT PRN (16:33)
--- NOTE | 2017-03-18 17:30 | NUR ---
ativan 1 mg given via gt @ 1630.pt had seizure that lasted less than a minute per pt's sister. pt calm. no signs of respiratory distress.no s/s of pain and discomfort. monitored for any untoward changes.endorsed.
[2017-03-18] MEDS: GLYTROL 1,000 ML BAG GT PRN (18:01)
[2017-03-18 19:53] VITALS: BP 98/60
[2017-03-18] MEDS: SENNOSIDES 8.6 MG TABLET GT SCH (21:12)
[2017-03-18] MEDS: ASCORBIC ACID 500 MG TABLET GT SCH (21:12)
[2017-03-18] MEDS: MULTIVIT, IRON, MIN NO. 8, FA 1 TAB GT SCH (21:12)
[2017-03-19] MEDS: ALBUTEROL FS 2.5 MG/3 ML VIAL.NEB NEB SCH ×4 (01:16→19:45)
[2017-03-19] MEDS: BLOOD SUGAR DIAGNOSTIC 1 EACH STRIP IN SCH ×2 (05:07→18:05)
[2017-03-19] MEDS: DEXILANT 30 MG GT SCH (05:07)
[2017-03-19] MEDS: INSULIN REGULAR, HUMAN 100 UNIT/ML 3 ML VIAL SQ PRN (05:08)
[2017-03-19] MEDS: GLYTROL 1,000 ML BAG GT PRN ×2 (05:09→23:37)
[2017-03-19 08:02] VITALS: BP 120/67
[2017-03-19] MEDS: Z GUARD REMEDY 2 OZ OINT TP SCH ×2 (09:00→21:38)
[2017-03-19] MEDS: ACIDOPHILUS/BULGARICUS 1 EACH TAB.CHEW PO SCH ×3 (09:00→17:00)
[2017-03-19] MEDS: PROSOURCE / PROSTAT (PYXIS) 30 ML UDC GT SCH ×2 (09:00→17:00)
[2017-03-19] MEDS: HYDROGEN PEROXIDE 480 ML BOTTLE TP SCH ×2 (09:00→21:38)
[2017-03-19] MEDS: Z GUARD REMEDY 4 OZ OINT TP SCH ×4 (09:00→21:38)
[2017-03-19] MEDS: CALCIUM CARBONATE 500 MG TAB.CHEW GT SCH ×2 (09:00→17:00)
[2017-03-19] MEDS: BALM TP SCH ×2 (09:00→21:38)
[2017-03-19] MEDS: LEVETIRACETAM SOL (5 ML) 100 MG/ML UDC GT SCH ×2 (09:00→21:37)
[2017-03-19] MEDS: ASPIRIN 81 MG TAB.CHEW GT SCH (09:00)
[2017-03-19] MEDS: TRILEPTAL GT SCH ×2 (09:00→21:37)
[2017-03-19] MEDS: HYDROGEL DRESSING 90 GM TUBE TP SCH ×2 (09:00→21:38)
[2017-03-19] MEDS: VITAMINS A AND D 56.7 GM TUBE TP SCH ×2 (09:00→21:38)
--- NOTE | 2017-03-19 14:00 | NUR ---
Seen by CEMENT MIXER DRIVER Anna Vargas. Notified her that pt's urine is cloudy, asked her if pt will need cranberry for UTI prophylaxis. She said to just give pt water, no need for cranberry. Pt has 250 mL of water flushing q 6 hours.
[2017-03-19] MEDS: MAGNESIUM HYDROXIDE 30 ML UDC GT PRN (18:51)
[2017-03-19] MEDS: ASCORBIC ACID 500 MG TABLET GT SCH (21:37)
[2017-03-19] MEDS: SENNOSIDES 8.6 MG TABLET GT SCH (21:37)
[2017-03-19] MEDS: MULTIVIT, IRON, MIN NO. 8, FA 1 TAB GT SCH (21:37)
[2017-03-19] MEDS: DOCUSATE SODIUM LIQ 100 MG/10 ML UDC GT PRN (21:38)
[2017-03-19 22:50] VITALS: BP 114/59
[2017-03-20] MEDS: ALBUTEROL FS 2.5 MG/3 ML VIAL.NEB NEB SCH ×4 (01:59→19:56)
[2017-03-20] MEDS: BLOOD SUGAR DIAGNOSTIC 1 EACH STRIP IN SCH ×2 (05:35→18:05)
[2017-03-20] MEDS: DEXILANT 30 MG GT SCH (05:35)
[2017-03-20] MEDS: INSULIN REGULAR, HUMAN 100 UNIT/ML 3 ML VIAL SQ PRN (05:36)
[2017-03-20] MEDS: BISACODYL SUPP (10 MG) 10 MG/SUPP.RECT SUPP.RECT RC PRN (05:36)
[2017-03-20 07:52] VITALS: BP 138/65
[2017-03-20] MEDS: CALCIUM CARBONATE 500 MG TAB.CHEW GT SCH ×2 (09:58→17:00)
[2017-03-20] MEDS: BALM TP SCH ×2 (09:58→20:58)
[2017-03-20] MEDS: HYDROGEL DRESSING 90 GM TUBE TP SCH ×2 (09:58→20:58)
[2017-03-20] MEDS: PROSOURCE / PROSTAT (PYXIS) 30 ML UDC GT SCH ×2 (09:58→17:00)
[2017-03-20] MEDS: ACIDOPHILUS/BULGARICUS 1 EACH TAB.CHEW PO SCH ×3 (09:58→17:00)
[2017-03-20] MEDS: ASPIRIN 81 MG TAB.CHEW GT SCH (09:58)
[2017-03-20] MEDS: TRILEPTAL GT SCH ×2 (09:58→20:58)
[2017-03-20] MEDS: LEVETIRACETAM SOL (5 ML) 100 MG/ML UDC GT SCH ×2 (09:58→20:58)
[2017-03-20] MEDS: Z GUARD REMEDY 2 OZ OINT TP SCH ×2 (09:59→20:58)
[2017-03-20] MEDS: VITAMINS A AND D 56.7 GM TUBE TP SCH ×2 (09:59→20:58)
[2017-03-20] MEDS: Z GUARD REMEDY 4 OZ OINT TP SCH ×4 (09:59→20:58)
[2017-03-20] MEDS: HYDROGEN PEROXIDE 480 ML BOTTLE TP SCH ×2 (09:59→20:58)
--- NOTE | 2017-03-20 15:00 | NUR ---
IDT meeting held, sister Beckie attended the meeting. Current orders, new medications, treatment and plan of care reviewed. No new orders were given and Sister Beckie appreciative of the care being provided to her sister. She stated that she was happy about the care that she has been receiving from our staff members.
[2017-03-20] MEDS: GLYTROL 1,000 ML BAG GT PRN (18:40)
[2017-03-20] MEDS: SENNOSIDES 8.6 MG TABLET GT SCH (20:58)
[2017-03-20] MEDS: ASCORBIC ACID 500 MG TABLET GT SCH (20:58)
[2017-03-20] MEDS: MULTIVIT, IRON, MIN NO. 8, FA 1 TAB GT SCH (20:58)
[2017-03-20 23:22] VITALS: BP 141/64
[2017-03-21] MEDS: ALBUTEROL FS 2.5 MG/3 ML VIAL.NEB NEB SCH ×4 (00:42→20:29)
[2017-03-21] MEDS: BLOOD SUGAR DIAGNOSTIC 1 EACH STRIP IN SCH ×2 (05:41→17:56)
[2017-03-21] MEDS: DEXILANT 30 MG GT SCH (05:41)
[2017-03-21] MEDS: INSULIN REGULAR, HUMAN 100 UNIT/ML 3 ML VIAL SQ PRN (05:42)
[2017-03-21 07:39] VITALS: BP 112/55
[2017-03-21] MEDS: TRILEPTAL GT SCH ×2 (09:54→20:58)
[2017-03-21] MEDS: ACIDOPHILUS/BULGARICUS 1 EACH TAB.CHEW PO SCH ×3 (09:54→17:56)
[2017-03-21] MEDS: LEVETIRACETAM SOL (5 ML) 100 MG/ML UDC GT SCH ×2 (09:54→20:58)
[2017-03-21] MEDS: BALM TP SCH ×2 (09:54→20:58)
[2017-03-21] MEDS: CALCIUM CARBONATE 500 MG TAB.CHEW GT SCH ×2 (09:54→17:56)
[2017-03-21] MEDS: ASPIRIN 81 MG TAB.CHEW GT SCH (09:54)
[2017-03-21] MEDS: PROSOURCE / PROSTAT (PYXIS) 30 ML UDC GT SCH ×2 (09:54→17:56)
[2017-03-21] MEDS: HYDROGEN PEROXIDE 480 ML BOTTLE TP SCH ×2 (09:54→20:58)
[2017-03-21] MEDS: HYDROGEL DRESSING 90 GM TUBE TP SCH ×2 (09:54→20:58)
[2017-03-21] MEDS: VITAMINS A AND D 56.7 GM TUBE TP SCH ×2 (09:55→20:58)
[2017-03-21] MEDS: Z GUARD REMEDY 2 OZ OINT TP SCH ×2 (09:55→20:58)
[2017-03-21] MEDS: Z GUARD REMEDY 4 OZ OINT TP SCH ×4 (09:55→20:58)
--- NOTE | 2017-03-21 11:30 | NUR ---
Seen and examined by Dr. Montaño, he assessed the mass noted on the R upper buttocks approx 4.5 x4.0 cm. with order to do a lumbar/caudal spine X ray. Order noted and carried out. No patient grimacing noted when touched, no open skin noted.
[2017-03-21] MEDS: GLYTROL 1,000 ML BAG GT PRN (15:42)
--- NOTE | 2017-03-21 18:30 | NUR ---
Left a message to Dr. Montaño regarding result of lumbar/caudal spina Xray, NNO given at this time. Left a message to resident's sister Beckie.
[2017-03-21] MEDS: ASCORBIC ACID 500 MG TABLET GT SCH (20:58)
[2017-03-21] MEDS: MULTIVIT, IRON, MIN NO. 8, FA 1 TAB GT SCH (20:58)
[2017-03-21] MEDS: SENNOSIDES 8.6 MG TABLET GT SCH (20:58)
[2017-03-21] MEDS: DOCUSATE SODIUM LIQ 100 MG/10 ML UDC GT PRN (20:59)
[2017-03-21] MEDS: MAGNESIUM HYDROXIDE 30 ML UDC GT PRN (20:59)
[2017-03-22] MEDS: ALBUTEROL FS 2.5 MG/3 ML VIAL.NEB NEB SCH ×4 (02:07→19:25)
[2017-03-22] MEDS: DEXILANT 30 MG GT SCH (05:14)
[2017-03-22] MEDS: INSULIN REGULAR, HUMAN 100 UNIT/ML 3 ML VIAL SQ PRN (05:14)
[2017-03-22] MEDS: BLOOD SUGAR DIAGNOSTIC 1 EACH STRIP IN SCH ×2 (05:14→17:55)
[2017-03-22 07:31] VITALS: BP 125/72
[2017-03-22] MEDS: Z GUARD REMEDY 2 OZ OINT TP SCH ×2 (08:20→21:37)
[2017-03-22] MEDS: LEVETIRACETAM SOL (5 ML) 100 MG/ML UDC GT SCH ×2 (08:20→21:36)
[2017-03-22] MEDS: BALM TP SCH ×2 (08:20→21:37)
[2017-03-22] MEDS: VITAMINS A AND D 56.7 GM TUBE TP SCH ×2 (08:20→21:37)
[2017-03-22] MEDS: CALCIUM CARBONATE 500 MG TAB.CHEW GT SCH ×2 (08:20→16:50)
[2017-03-22] MEDS: TRILEPTAL GT SCH ×2 (08:20→21:36)
[2017-03-22] MEDS: PROSOURCE / PROSTAT (PYXIS) 30 ML UDC GT SCH ×2 (08:20→16:50)
[2017-03-22] MEDS: Z GUARD REMEDY 4 OZ OINT TP SCH ×4 (08:20→21:37)
[2017-03-22] MEDS: ASPIRIN 81 MG TAB.CHEW GT SCH (08:20)
[2017-03-22] MEDS: HYDROGEN PEROXIDE 480 ML BOTTLE TP SCH ×2 (08:20→21:37)
[2017-03-22] MEDS: HYDROGEL DRESSING 90 GM TUBE TP SCH ×2 (08:20→21:36)
[2017-03-22] MEDS: ACIDOPHILUS/BULGARICUS 1 EACH TAB.CHEW PO SCH ×3 (08:20→16:50)
[2017-03-22] MEDS: GLYTROL 1,000 ML BAG GT PRN ×2 (10:45→23:47)
--- NOTE | 2017-03-22 16:00 | NUR ---
Per family visiting right now reported to nursing staff their sister had seizure, assessed patient, patient calm, not in distress. Patient currently on seizure medication keppra 1500 mg via GT BID for seizure. Patients' family stated " shes' fine right now". Patient closely monitored.
[2017-03-22 20:12] VITALS: BP 120/70
[2017-03-22] MEDS: MULTIVIT, IRON, MIN NO. 8, FA 1 TAB GT SCH (21:36)
[2017-03-22] MEDS: SENNOSIDES 8.6 MG TABLET GT SCH (21:36)
[2017-03-22] MEDS: ASCORBIC ACID 500 MG TABLET GT SCH (21:36)
[2017-03-23] MEDS: ALBUTEROL FS 2.5 MG/3 ML VIAL.NEB NEB SCH ×4 (00:32→19:30)
[2017-03-23] MEDS: DEXILANT 30 MG GT SCH (05:40)
[2017-03-23] MEDS: BLOOD SUGAR DIAGNOSTIC 1 EACH STRIP IN SCH ×2 (06:10→17:12)
[2017-03-23 07:43] VITALS: BP 109/68
[2017-03-23] MEDS: Z GUARD REMEDY 2 OZ OINT TP SCH ×2 (09:00→20:41)
[2017-03-23] MEDS: HYDROGEN PEROXIDE 480 ML BOTTLE TP SCH ×2 (09:00→20:41)
[2017-03-23] MEDS: BALM TP SCH ×2 (09:00→20:41)
[2017-03-23] MEDS: Z GUARD REMEDY 4 OZ OINT TP SCH ×4 (09:00→20:41)
[2017-03-23] MEDS: ASPIRIN 81 MG TAB.CHEW GT SCH (09:00)
[2017-03-23] MEDS: CALCIUM CARBONATE 500 MG TAB.CHEW GT SCH ×2 (09:00→17:10)
[2017-03-23] MEDS: LEVETIRACETAM SOL (5 ML) 100 MG/ML UDC GT SCH ×2 (09:00→20:41)
[2017-03-23] MEDS: HYDROGEL DRESSING 90 GM TUBE TP SCH ×2 (09:00→20:41)
[2017-03-23] MEDS: TRILEPTAL GT SCH ×2 (09:00→20:40)
[2017-03-23] MEDS: ACIDOPHILUS/BULGARICUS 1 EACH TAB.CHEW PO SCH ×3 (09:00→17:10)
[2017-03-23] MEDS: PROSOURCE / PROSTAT (PYXIS) 30 ML UDC GT SCH ×2 (09:00→17:10)
[2017-03-23] MEDS: VITAMINS A AND D 56.7 GM TUBE TP SCH ×2 (09:00→20:41)
--- NOTE | 2017-03-23 13:15 | NUR ---
SEEN BY NAN BOLES WITH NO ORDERS AT THIS TIME.
--- NOTE | 2017-03-23 13:27 | NUR ---
Reminded Dr. Montaño to view pt's lumbar spine x-ray result. He said ok. Pt was seen by CONTENT CREATION MANAGER Anna Vargas, relayed lumbar spine x-ray result to her. No new order.
[2017-03-23] MEDS: INSULIN REGULAR, HUMAN 100 UNIT/ML 3 ML VIAL SQ PRN (17:16)
[2017-03-23] MEDS: MULTIVIT, IRON, MIN NO. 8, FA 1 TAB GT SCH (20:41)
[2017-03-23] MEDS: SENNOSIDES 8.6 MG TABLET GT SCH (20:41)
[2017-03-23] MEDS: ASCORBIC ACID 500 MG TABLET GT SCH (20:41)
[2017-03-23 20:55] VITALS: BP 119/79
[2017-03-23] MEDS: GLYTROL 1,000 ML BAG GT PRN (22:24)
[2017-03-24] MEDS: ALBUTEROL FS 2.5 MG/3 ML VIAL.NEB NEB SCH ×4 (02:04→20:17)
[2017-03-24] MEDS: DEXILANT 30 MG GT SCH (05:06)
[2017-03-24] MEDS: BLOOD SUGAR DIAGNOSTIC 1 EACH STRIP IN SCH ×2 (06:13→18:03)
[2017-03-24 08:10] VITALS: BP 111/70
[2017-03-24] MEDS: ASPIRIN 81 MG TAB.CHEW GT SCH (09:22)
[2017-03-24] MEDS: LEVETIRACETAM SOL (5 ML) 100 MG/ML UDC GT SCH ×2 (09:30→21:13)
[2017-03-24] MEDS: TRILEPTAL GT SCH ×2 (09:30→21:13)
[2017-03-24] MEDS: PROSOURCE / PROSTAT (PYXIS) 30 ML UDC GT SCH ×2 (09:30→17:00)
[2017-03-24] MEDS: HYDROGEL DRESSING 90 GM TUBE TP SCH ×2 (09:31→21:14)
[2017-03-24] MEDS: BALM TP SCH ×2 (09:31→21:14)
[2017-03-24] MEDS: VITAMINS A AND D 56.7 GM TUBE TP SCH ×2 (09:31→21:14)
[2017-03-24] MEDS: ACIDOPHILUS/BULGARICUS 1 EACH TAB.CHEW PO SCH ×3 (09:31→17:00)
[2017-03-24] MEDS: CALCIUM CARBONATE 500 MG TAB.CHEW GT SCH ×2 (09:31→17:00)
[2017-03-24] MEDS: Z GUARD REMEDY 4 OZ OINT TP SCH ×4 (09:31→21:14)
[2017-03-24] MEDS: Z GUARD REMEDY 2 OZ OINT TP SCH ×2 (09:31→21:14)
[2017-03-24] MEDS: HYDROGEN PEROXIDE 480 ML BOTTLE TP SCH ×2 (10:20→21:14)
[2017-03-24] MEDS: GLYTROL 1,000 ML BAG GT PRN (18:00)
[2017-03-24 20:36] VITALS: BP 109/68
[2017-03-24] MEDS: ASCORBIC ACID 500 MG TABLET GT SCH (21:14)
[2017-03-24] MEDS: MULTIVIT, IRON, MIN NO. 8, FA 1 TAB GT SCH (21:14)
[2017-03-24] MEDS: SENNOSIDES 8.6 MG TABLET GT SCH (21:14)
[2017-03-25] MEDS: ALBUTEROL FS 2.5 MG/3 ML VIAL.NEB NEB SCH ×4 (01:25→19:31)
[2017-03-25] MEDS: DEXILANT 30 MG GT SCH (05:42)
[2017-03-25] MEDS: BLOOD SUGAR DIAGNOSTIC 1 EACH STRIP IN SCH ×2 (06:04→18:19)
[2017-03-25] MEDS: LEVETIRACETAM SOL (5 ML) 100 MG/ML UDC GT SCH ×2 (09:00→20:19)
[2017-03-25] MEDS: PROSOURCE / PROSTAT (PYXIS) 30 ML UDC GT SCH ×2 (09:00→17:00)
[2017-03-25] MEDS: Z GUARD REMEDY 2 OZ OINT TP SCH ×2 (09:00→20:20)
[2017-03-25] MEDS: TRILEPTAL GT SCH ×2 (09:00→20:19)
[2017-03-25] MEDS: BALM TP SCH ×2 (09:00→20:20)
[2017-03-25] MEDS: CALCIUM CARBONATE 500 MG TAB.CHEW GT SCH ×2 (09:00→17:00)
[2017-03-25] MEDS: HYDROGEL DRESSING 90 GM TUBE TP SCH ×2 (09:00→20:19)
[2017-03-25] MEDS: VITAMINS A AND D 56.7 GM TUBE TP SCH ×2 (09:00→20:20)
[2017-03-25] MEDS: ASPIRIN 81 MG TAB.CHEW GT SCH (09:00)
[2017-03-25] MEDS: HYDROGEN PEROXIDE 480 ML BOTTLE TP SCH ×2 (09:00→20:20)
[2017-03-25] MEDS: ACIDOPHILUS/BULGARICUS 1 EACH TAB.CHEW PO SCH ×3 (09:00→17:00)
[2017-03-25] MEDS: Z GUARD REMEDY 4 OZ OINT TP SCH ×4 (09:00→20:20)
[2017-03-25 09:44] VITALS: BP 127/77
[2017-03-25] MEDS: GLYTROL 1,000 ML BAG GT PRN (11:10)
--- NOTE | 2017-03-25 15:34 | NUR ---
Seen and examined by ANG [place] given.
[2017-03-25] MEDS: ASCORBIC ACID 500 MG TABLET GT SCH (20:19)
[2017-03-25] MEDS: SENNOSIDES 8.6 MG TABLET GT SCH (20:19)
[2017-03-25] MEDS: MULTIVIT, IRON, MIN NO. 8, FA 1 TAB GT SCH (20:19)
[2017-03-25 20:24] VITALS: BP 135/75
[2017-03-26] MEDS: ALBUTEROL FS 2.5 MG/3 ML VIAL.NEB NEB SCH ×4 (00:55→20:21)
[2017-03-26] MEDS: GLYTROL 1,000 ML BAG GT PRN ×2 (01:32→17:39)
[2017-03-26] MEDS: DEXILANT 30 MG GT SCH (05:54)
[2017-03-26] MEDS: BLOOD SUGAR DIAGNOSTIC 1 EACH STRIP IN SCH ×2 (05:59→17:38)
[2017-03-26 07:41] VITALS: BP 120/63
[2017-03-26] MEDS: VITAMINS A AND D 56.7 GM TUBE TP SCH ×2 (09:00→21:28)
[2017-03-26] MEDS: Z GUARD REMEDY 2 OZ OINT TP SCH ×2 (09:00→21:28)
[2017-03-26] MEDS: HYDROGEL DRESSING 90 GM TUBE TP SCH ×2 (09:00→21:27)
[2017-03-26] MEDS: Z GUARD REMEDY 4 OZ OINT TP SCH ×2 (09:00→21:28)
[2017-03-26] MEDS: BALM TP SCH ×2 (09:00→21:27)
[2017-03-26] MEDS: HYDROGEN PEROXIDE 480 ML BOTTLE TP SCH ×2 (09:00→21:28)
[2017-03-26] MEDS: CALCIUM CARBONATE 500 MG TAB.CHEW GT SCH ×2 (09:40→17:37)
[2017-03-26] MEDS: PROSOURCE / PROSTAT (PYXIS) 30 ML UDC GT SCH ×2 (09:40→17:37)
[2017-03-26] MEDS: ASPIRIN 81 MG TAB.CHEW GT SCH (09:40)
[2017-03-26] MEDS: TRILEPTAL GT SCH ×2 (09:40→21:27)
[2017-03-26] MEDS: LEVETIRACETAM SOL (5 ML) 100 MG/ML UDC GT SCH ×2 (09:40→21:27)
[2017-03-26] MEDS: ACIDOPHILUS/BULGARICUS 1 EACH TAB.CHEW PO SCH ×3 (09:40→17:38)
[2017-03-26 19:53] VITALS: BP 106/61
[2017-03-26] MEDS: MULTIVIT, IRON, MIN NO. 8, FA 1 TAB GT SCH (21:27)
[2017-03-26] MEDS: SENNOSIDES 8.6 MG TABLET GT SCH (21:27)
[2017-03-26] MEDS: ASCORBIC ACID 500 MG TABLET GT SCH (21:27)
[2017-03-27] MEDS: ALBUTEROL FS 2.5 MG/3 ML VIAL.NEB NEB SCH ×3 (01:35→19:26)
[2017-03-27] MEDS: BLOOD SUGAR DIAGNOSTIC 1 EACH STRIP IN SCH ×2 (06:00→18:37)
[2017-03-27] MEDS: DEXILANT 30 MG GT SCH (06:00)
[2017-03-27 07:30] VITALS: BP 123/68
[2017-03-27] MEDS: ACIDOPHILUS/BULGARICUS 1 EACH TAB.CHEW PO SCH ×3 (09:00→17:00)
[2017-03-27] MEDS: VITAMINS A AND D 56.7 GM TUBE TP SCH ×2 (09:00→20:52)
[2017-03-27] MEDS: PROSOURCE / PROSTAT (PYXIS) 30 ML UDC GT SCH ×2 (09:00→17:00)
[2017-03-27] MEDS: LEVETIRACETAM SOL (5 ML) 100 MG/ML UDC GT SCH ×2 (09:00→20:51)
[2017-03-27] MEDS: TRILEPTAL GT SCH ×2 (09:00→20:51)
[2017-03-27] MEDS: BALM TP SCH ×2 (09:00→20:52)
[2017-03-27] MEDS: HYDROGEL DRESSING 90 GM TUBE TP SCH ×2 (09:00→20:51)
[2017-03-27] MEDS: HYDROGEN PEROXIDE 480 ML BOTTLE TP SCH ×2 (09:00→20:52)
[2017-03-27] MEDS: ASPIRIN 81 MG TAB.CHEW GT SCH (09:00)
[2017-03-27] MEDS: Z GUARD REMEDY 2 OZ OINT TP SCH ×2 (09:00→20:52)
[2017-03-27] MEDS: CALCIUM CARBONATE 500 MG TAB.CHEW GT SCH ×2 (09:00→17:00)
[2017-03-27] MEDS: Z GUARD REMEDY 4 OZ OINT TP SCH ×2 (09:00→20:52)
--- NOTE | 2017-03-27 09:00 | NUR ---
Seen and examined by Dr. Montaño, notified MD that resident's sister is requesting if he can speak with her regarding the result of caudal/lumbar spine x-ray. Dr. Montaño ordered CT scan of the pelvis. Left a message to patient's sister Beckie.
[2017-03-27 19:56] VITALS: BP 115/60
[2017-03-27] MEDS: ASCORBIC ACID 500 MG TABLET GT SCH (20:51)
[2017-03-27] MEDS: SENNOSIDES 8.6 MG TABLET GT SCH (20:51)
[2017-03-27] MEDS: MULTIVIT, IRON, MIN NO. 8, FA 1 TAB GT SCH (20:51)
[2017-03-28] MEDS: ALBUTEROL FS 2.5 MG/3 ML VIAL.NEB NEB SCH ×4 (02:13→19:30)
[2017-03-28] MEDS: BLOOD SUGAR DIAGNOSTIC 1 EACH STRIP IN SCH ×2 (05:16→17:52)
[2017-03-28] MEDS: DEXILANT 30 MG GT SCH ×2 (05:55→06:00)
[2017-03-28 07:39] VITALS: BP 118/72
[2017-03-28] MEDS: PROSOURCE / PROSTAT (PYXIS) 30 ML UDC GT SCH ×2 (09:00→17:52)
[2017-03-28] MEDS: ACIDOPHILUS/BULGARICUS 1 EACH TAB.CHEW PO SCH ×3 (09:00→17:52)
[2017-03-28] MEDS: ASPIRIN 81 MG TAB.CHEW GT SCH (09:00)
[2017-03-28] MEDS: HYDROGEL DRESSING 90 GM TUBE TP SCH ×2 (09:00→20:56)
[2017-03-28] MEDS: CALCIUM CARBONATE 500 MG TAB.CHEW GT SCH ×2 (09:00→17:52)
[2017-03-28] MEDS: BALM TP SCH ×2 (09:00→20:56)
[2017-03-28] MEDS: TRILEPTAL GT SCH ×2 (09:00→20:56)
[2017-03-28] MEDS: LEVETIRACETAM SOL (5 ML) 100 MG/ML UDC GT SCH ×2 (09:00→20:56)
[2017-03-28] MEDS: HYDROGEN PEROXIDE 480 ML BOTTLE TP SCH ×2 (09:01→20:56)
[2017-03-28] MEDS: Z GUARD REMEDY 4 OZ OINT TP SCH ×2 (09:01→20:56)
[2017-03-28] MEDS: Z GUARD REMEDY 2 OZ OINT TP SCH ×2 (09:01→20:56)
[2017-03-28] MEDS: VITAMINS A AND D 56.7 GM TUBE TP SCH ×2 (09:01→20:56)
[2017-03-28 19:50] VITALS: BP 119/67
[2017-03-28] MEDS: GLYTROL 1,000 ML BAG GT PRN (20:55)
[2017-03-28] MEDS: ASCORBIC ACID 500 MG TABLET GT SCH (20:56)
[2017-03-28] MEDS: MULTIVIT, IRON, MIN NO. 8, FA 1 TAB GT SCH (20:56)
[2017-03-28] MEDS: SENNOSIDES 8.6 MG TABLET GT SCH (20:56)
[2017-03-29] MEDS: ALBUTEROL FS 2.5 MG/3 ML VIAL.NEB NEB SCH ×4 (01:30→20:16)
[2017-03-29] MEDS: MAGNESIUM HYDROXIDE 30 ML UDC GT PRN (01:39)
[2017-03-29] MEDS: BISACODYL SUPP (10 MG) 10 MG/SUPP.RECT SUPP.RECT RC PRN (06:27)
[2017-03-29] MEDS: DEXILANT 30 MG GT SCH (06:29)
[2017-03-29] MEDS: BLOOD SUGAR DIAGNOSTIC 1 EACH STRIP IN SCH ×2 (06:35→17:17)
[2017-03-29] MEDS: INSULIN REGULAR, HUMAN 100 UNIT/ML 3 ML VIAL SQ PRN (06:36)
[2017-03-29 08:33] VITALS: BP 95/71
[2017-03-29] MEDS: ASPIRIN 81 MG TAB.CHEW GT SCH (09:00)
[2017-03-29] MEDS: ACIDOPHILUS/BULGARICUS 1 EACH TAB.CHEW PO SCH ×3 (09:00→16:27)
[2017-03-29] MEDS: CALCIUM CARBONATE 500 MG TAB.CHEW GT SCH ×2 (09:00→16:27)
[2017-03-29] MEDS: PROSOURCE / PROSTAT (PYXIS) 30 ML UDC GT SCH ×2 (09:00→16:27)
[2017-03-29] MEDS: VITAMINS A AND D 56.7 GM TUBE TP SCH ×2 (09:00→21:30)
[2017-03-29] MEDS: BALM TP SCH ×2 (09:00→21:30)
[2017-03-29] MEDS: Z GUARD REMEDY 2 OZ OINT TP SCH ×2 (09:00→21:30)
[2017-03-29] MEDS: HYDROGEL DRESSING 90 GM TUBE TP SCH ×2 (09:00→21:30)
[2017-03-29] MEDS: TRILEPTAL GT SCH ×2 (09:00→21:30)
[2017-03-29] MEDS: HYDROGEN PEROXIDE 480 ML BOTTLE TP SCH ×2 (09:00→21:30)
[2017-03-29] MEDS: LEVETIRACETAM SOL (5 ML) 100 MG/ML UDC GT SCH ×2 (09:00→21:30)
[2017-03-29] MEDS: Z GUARD REMEDY 4 OZ OINT TP SCH ×2 (09:00→21:30)
[2017-03-29] MEDS: GLYTROL 1,000 ML BAG GT PRN (16:21)
[2017-03-29 19:49] VITALS: BP 125/69
[2017-03-29] MEDS: ASCORBIC ACID 500 MG TABLET GT SCH (21:30)
[2017-03-29] MEDS: SENNOSIDES 8.6 MG TABLET GT SCH (21:30)
[2017-03-29] MEDS: MULTIVIT, IRON, MIN NO. 8, FA 1 TAB GT SCH (21:30)
[2017-03-30] MEDS: ALBUTEROL FS 2.5 MG/3 ML VIAL.NEB NEB SCH ×4 (00:53→20:03)
[2017-03-30] MEDS: BLOOD SUGAR DIAGNOSTIC 1 EACH STRIP IN SCH ×2 (06:10→17:42)
[2017-03-30] MEDS: DEXILANT 30 MG GT SCH (06:10)
[2017-03-30 08:11] VITALS: BP 116/65
[2017-03-30] MEDS: BALM TP SCH ×2 (09:00→20:30)
[2017-03-30] MEDS: HYDROGEN PEROXIDE 480 ML BOTTLE TP SCH ×2 (09:00→20:30)
[2017-03-30] MEDS: HYDROGEL DRESSING 90 GM TUBE TP SCH ×2 (09:00→20:30)
[2017-03-30] MEDS: Z GUARD REMEDY 4 OZ OINT TP SCH ×2 (09:00→20:30)
[2017-03-30] MEDS: VITAMINS A AND D 56.7 GM TUBE TP SCH ×2 (09:00→20:31)
[2017-03-30] MEDS: Z GUARD REMEDY 2 OZ OINT TP SCH ×2 (09:00→20:30)
[2017-03-30] MEDS: CALCIUM CARBONATE 500 MG TAB.CHEW GT SCH ×2 (09:45→17:42)
[2017-03-30] MEDS: LEVETIRACETAM SOL (5 ML) 100 MG/ML UDC GT SCH ×2 (09:45→20:30)
[2017-03-30] MEDS: ASPIRIN 81 MG TAB.CHEW GT SCH (09:45)
[2017-03-30] MEDS: TRILEPTAL GT SCH ×2 (09:45→20:30)
[2017-03-30] MEDS: ACIDOPHILUS/BULGARICUS 1 EACH TAB.CHEW PO SCH ×3 (09:45→17:42)
[2017-03-30] MEDS: PROSOURCE / PROSTAT (PYXIS) 30 ML UDC GT SCH ×2 (09:45→17:42)
[2017-03-30] MEDS: MAGNESIUM HYDROXIDE 30 ML UDC GT PRN (15:21)
[2017-03-30] MEDS: INSULIN REGULAR, HUMAN 100 UNIT/ML 3 ML VIAL SQ PRN (17:42)
[2017-03-30] MEDS: ASCORBIC ACID 500 MG TABLET GT SCH (20:30)
[2017-03-30] MEDS: MULTIVIT, IRON, MIN NO. 8, FA 1 TAB GT SCH (20:30)
[2017-03-30] MEDS: SENNOSIDES 8.6 MG TABLET GT SCH (20:30)
[2017-03-30 21:00] VITALS: BP 119/58
[2017-03-31] MEDS: ALBUTEROL FS 2.5 MG/3 ML VIAL.NEB NEB SCH ×4 (02:22→19:11)
[2017-03-31] MEDS: DEXILANT 30 MG GT SCH (05:11)
[2017-03-31] MEDS: BLOOD SUGAR DIAGNOSTIC 1 EACH STRIP IN SCH ×2 (06:03→17:04)
[2017-03-31] MEDS: BISACODYL SUPP (10 MG) 10 MG/SUPP.RECT SUPP.RECT RC PRN (06:57)
--- NOTE | 2017-03-31 07:00 | NUR ---
RN OPENING NOTES HOB ELEVATED. VENT TRACH NON LABORED RESP. TUBE FEED RUNNING. SIDE RAILS X 2. BED LOW LOCKED. CALL LIGHT IN REACH. WILL CONT TO MONITOR.
[2017-03-31 08:03] VITALS: BP 110/54
[2017-03-31] MEDS: PROSOURCE / PROSTAT (PYXIS) 30 ML UDC GT SCH ×2 (08:03→16:10)
[2017-03-31] MEDS: ACIDOPHILUS/BULGARICUS 1 EACH TAB.CHEW PO SCH ×3 (08:03→16:10)
[2017-03-31] MEDS: LEVETIRACETAM SOL (5 ML) 100 MG/ML UDC GT SCH ×2 (08:03→20:28)
[2017-03-31] MEDS: CALCIUM CARBONATE 500 MG TAB.CHEW GT SCH ×2 (08:03→16:10)
[2017-03-31] MEDS: BALM TP SCH ×2 (08:03→20:29)
[2017-03-31] MEDS: TRILEPTAL GT SCH ×2 (08:03→20:28)
[2017-03-31] MEDS: HYDROGEL DRESSING 90 GM TUBE TP SCH (08:03)
[2017-03-31] MEDS: ASPIRIN 81 MG TAB.CHEW GT SCH (08:03)
[2017-03-31] MEDS: Z GUARD REMEDY 4 OZ OINT TP SCH ×3 (08:04→20:29)
[2017-03-31] MEDS: Z GUARD REMEDY 2 OZ OINT TP SCH (08:04)
[2017-03-31] MEDS: HYDROGEN PEROXIDE 480 ML BOTTLE TP SCH ×2 (08:04→20:29)
[2017-03-31] MEDS: VITAMINS A AND D 56.7 GM TUBE TP SCH ×2 (08:04→20:29)
--- NOTE | 2017-03-31 13:05 | NUR ---
Informed sister that hairdresser was coming tomorrow and asked her if she wanted resident to get her hair cut. She stated that she would like for her to get her hair cut and she also stated that she will be here to assist the hairdresser. STEPHEN informed her that hairdresser will come around 8:30AM 04/01/2017. Appreciated the information.
--- NOTE | 2017-03-31 17:37 | NUR ---
RN CLOSING NOTES HOB ELEVATED. VENT TRACH NON LABORED RESP. TUBE FEED RUNNING. SIDE RAILS X 2. BED LOW LOCKED. CALL LIGHT IN REACH. WILL CONT TO MONITOR AND ENDORSE TO NOC RN.
[2017-03-31] MEDS ORDERED: Z GUARD REMEDY 4 OZ OINT TP PRN (19:00)
[2017-03-31 20:09] VITALS: BP 118/74
[2017-03-31] MEDS: ASCORBIC ACID 500 MG TABLET GT SCH (20:28)
[2017-03-31] MEDS: MULTIVIT, IRON, MIN NO. 8, FA 1 TAB GT SCH (20:28)
[2017-03-31] MEDS: SENNOSIDES 8.6 MG TABLET GT SCH (20:28)
[2017-03-31] MEDS ORDERED: HYDROGEL DRESSING 90 GM TUBE TP SCH (21:00)
[2017-04-01] MEDS: ALBUTEROL FS 2.5 MG/3 ML VIAL.NEB NEB SCH ×4 (00:39→19:31)
[2017-04-01] MEDS: DEXILANT 30 MG GT SCH (05:33)
[2017-04-01] MEDS: GLYTROL 1,000 ML BAG GT PRN (05:36)
[2017-04-01] MEDS: BLOOD SUGAR DIAGNOSTIC 1 EACH STRIP IN SCH ×2 (05:49→17:51)
[2017-04-01 07:40] VITALS: BP 126/66
[2017-04-01] MEDS ORDERED: HYDROGEL DRESSING 90 GM TUBE TP PRN (09:00)
[2017-04-01] MEDS: ASPIRIN 81 MG TAB.CHEW GT SCH (09:31)
[2017-04-01] MEDS: TRILEPTAL GT SCH ×2 (09:35→21:39)
[2017-04-01] MEDS: Z GUARD REMEDY 4 OZ OINT TP SCH ×4 (09:35→21:41)
[2017-04-01] MEDS: ACIDOPHILUS/BULGARICUS 1 EACH TAB.CHEW PO SCH ×3 (09:35→17:41)
[2017-04-01] MEDS: PROSOURCE / PROSTAT (PYXIS) 30 ML UDC GT SCH ×2 (09:35→17:41)
[2017-04-01] MEDS: CALCIUM CARBONATE 500 MG TAB.CHEW GT SCH ×2 (09:35→17:41)
[2017-04-01] MEDS: HYDROGEN PEROXIDE 480 ML BOTTLE TP SCH ×2 (09:35→21:41)
[2017-04-01] MEDS: BALM TP SCH ×2 (09:35→21:40)
[2017-04-01] MEDS: LEVETIRACETAM SOL (5 ML) 100 MG/ML UDC GT SCH ×2 (09:35→21:39)
[2017-04-01] MEDS: VITAMINS A AND D 56.7 GM TUBE TP SCH ×2 (09:36→21:41)
--- NOTE | 2017-04-01 10:45 | NUR ---
Sister was unable to be present for haircut. Haircut was rescheduled to April 15, 2017. Informed sister Beckie.
[2017-04-01 20:14] VITALS: BP 110/76
[2017-04-01] MEDS: MULTIVIT, IRON, MIN NO. 8, FA 1 TAB GT SCH (21:39)
[2017-04-01] MEDS: SENNOSIDES 8.6 MG TABLET GT SCH (21:39)
[2017-04-01] MEDS: ASCORBIC ACID 500 MG TABLET GT SCH (21:40)
[2017-04-02] MEDS: ALBUTEROL FS 2.5 MG/3 ML VIAL.NEB NEB SCH ×4 (01:11→19:18)
[2017-04-02] MEDS: GLYTROL 1,000 ML BAG GT PRN ×2 (01:58→17:21)
[2017-04-02] MEDS: DEXILANT 30 MG GT SCH (05:17)
[2017-04-02] MEDS: BLOOD SUGAR DIAGNOSTIC 1 EACH STRIP IN SCH ×2 (05:18→17:19)
[2017-04-02] MEDS: INSULIN REGULAR, HUMAN 100 UNIT/ML 3 ML VIAL SQ PRN (06:51)
--- NOTE | 2017-04-02 06:52 | NUR ---
cognos report developer/notes blood sugar 139, no insulin given as ordered. no signs of hypo glycemia noted.
[2017-04-02 07:45] VITALS: BP 103/60
[2017-04-02] MEDS: VITAMINS A AND D 56.7 GM TUBE TP SCH ×2 (09:00→20:29)
[2017-04-02] MEDS: HYDROGEN PEROXIDE 480 ML BOTTLE TP SCH ×2 (09:00→20:28)
[2017-04-02] MEDS: BALM TP SCH ×2 (09:00→20:28)
[2017-04-02] MEDS: Z GUARD REMEDY 4 OZ OINT TP SCH ×4 (09:00→20:29)
[2017-04-02] MEDS: ASPIRIN 81 MG TAB.CHEW GT SCH (09:48)
[2017-04-02] MEDS: TRILEPTAL GT SCH ×2 (09:48→20:29)
[2017-04-02] MEDS: PROSOURCE / PROSTAT (PYXIS) 30 ML UDC GT SCH ×2 (09:49→17:19)
[2017-04-02] MEDS: ACIDOPHILUS/BULGARICUS 1 EACH TAB.CHEW PO SCH ×3 (09:49→17:38)
[2017-04-02] MEDS: CALCIUM CARBONATE 500 MG TAB.CHEW GT SCH ×2 (09:49→17:19)
[2017-04-02] MEDS: LEVETIRACETAM SOL (5 ML) 100 MG/ML UDC GT SCH ×2 (09:49→20:26)
[2017-04-02] MEDS: MAGNESIUM HYDROXIDE 30 ML UDC GT PRN (17:21)
--- NOTE | 2017-04-02 17:59 | NUR ---
Called pt's sister Beckie and notified her that bed mattress was changed to a thin one to prevent the pt from falling off the bed. Pt's sister was concerned that the mattress was almost the same height as the side rail. Beckie expressed appreciation.
[2017-04-02] MEDS: BISACODYL SUPP (10 MG) 10 MG/SUPP.RECT SUPP.RECT RC PRN (18:29)
[2017-04-02 20:00] VITALS: BP 121/70
[2017-04-02] MEDS: MULTIVIT, IRON, MIN NO. 8, FA 1 TAB GT SCH (20:27)
[2017-04-02] MEDS: SENNOSIDES 8.6 MG TABLET GT SCH (20:27)
[2017-04-02] MEDS: ASCORBIC ACID 500 MG TABLET GT SCH (20:28)
[2017-04-03] MEDS: ALBUTEROL FS 2.5 MG/3 ML VIAL.NEB NEB SCH ×4 (00:52→19:35)
[2017-04-03] MEDS: GLYTROL 1,000 ML BAG GT PRN (05:16)
[2017-04-03] MEDS: BLOOD SUGAR DIAGNOSTIC 1 EACH STRIP IN SCH ×2 (05:16→17:43)
[2017-04-03] MEDS: DEXILANT 30 MG GT SCH (05:16)
[2017-04-03] MEDS: ACIDOPHILUS/BULGARICUS 1 EACH TAB.CHEW PO SCH ×3 (09:25→17:00)
[2017-04-03] MEDS: PROSOURCE / PROSTAT (PYXIS) 30 ML UDC GT SCH ×2 (09:25→17:43)
[2017-04-03] MEDS: ASPIRIN 81 MG TAB.CHEW GT SCH (09:25)
[2017-04-03] MEDS: CALCIUM CARBONATE 500 MG TAB.CHEW GT SCH ×2 (09:25→17:43)
[2017-04-03] MEDS: LEVETIRACETAM SOL (5 ML) 100 MG/ML UDC GT SCH ×2 (09:25→21:00)
[2017-04-03] MEDS: TRILEPTAL GT SCH ×2 (09:25→21:00)
[2017-04-03] MEDS: HYDROGEN PEROXIDE 480 ML BOTTLE TP SCH ×2 (09:26→21:00)
[2017-04-03] MEDS: BALM TP SCH ×2 (09:26→21:00)
[2017-04-03] MEDS: VITAMINS A AND D 56.7 GM TUBE TP SCH ×2 (09:26→21:00)
[2017-04-03] MEDS: Z GUARD REMEDY 4 OZ OINT TP SCH ×4 (09:26→21:00)
[2017-04-03 12:46] VITALS: BP 118/71
[2017-04-03 19:58] VITALS: BP 120/73
[2017-04-03] MEDS: SENNOSIDES 8.6 MG TABLET GT SCH (21:00)
[2017-04-03] MEDS: ASCORBIC ACID 500 MG TABLET GT SCH (21:00)
[2017-04-03] MEDS: MULTIVIT, IRON, MIN NO. 8, FA 1 TAB GT SCH (21:00)
[2017-04-04] MEDS: ALBUTEROL FS 2.5 MG/3 ML VIAL.NEB NEB SCH ×4 (01:30→19:29)
[2017-04-04] MEDS: DEXILANT 30 MG GT SCH (06:33)
[2017-04-04] MEDS: BLOOD SUGAR DIAGNOSTIC 1 EACH STRIP IN SCH ×2 (06:33→17:55)
[2017-04-04 07:42] VITALS: BP 124/74
[2017-04-04] MEDS: TRILEPTAL GT SCH ×2 (08:52→20:30)
[2017-04-04] MEDS: CALCIUM CARBONATE 500 MG TAB.CHEW GT SCH ×2 (08:52→17:05)
[2017-04-04] MEDS: ASPIRIN 81 MG TAB.CHEW GT SCH (08:52)
[2017-04-04] MEDS: LEVETIRACETAM SOL (5 ML) 100 MG/ML UDC GT SCH ×2 (08:52→20:30)
[2017-04-04] MEDS: PROSOURCE / PROSTAT (PYXIS) 30 ML UDC GT SCH ×2 (08:52→17:04)
[2017-04-04] MEDS: ACIDOPHILUS/BULGARICUS 1 EACH TAB.CHEW PO SCH ×3 (08:52→17:05)
[2017-04-04] MEDS: VITAMINS A AND D 56.7 GM TUBE TP SCH ×2 (09:00→20:30)
[2017-04-04] MEDS: BALM TP SCH ×2 (09:00→20:30)
[2017-04-04] MEDS: Z GUARD REMEDY 4 OZ OINT TP SCH ×4 (09:00→20:30)
[2017-04-04] MEDS: HYDROGEN PEROXIDE 480 ML BOTTLE TP SCH ×2 (09:00→20:30)
[2017-04-04] MEDS: GLYTROL 1,000 ML BAG GT PRN (13:26)
[2017-04-04] MEDS: INSULIN REGULAR, HUMAN 100 UNIT/ML 3 ML VIAL SQ PRN (17:57)
[2017-04-04 19:53] VITALS: BP 122/76
[2017-04-04] MEDS: ASCORBIC ACID 500 MG TABLET GT SCH (20:30)
[2017-04-04] MEDS: SENNOSIDES 8.6 MG TABLET GT SCH (20:30)
[2017-04-04] MEDS: MULTIVIT, IRON, MIN NO. 8, FA 1 TAB GT SCH (20:30)
[2017-04-05] MEDS: GLYTROL 1,000 ML BAG GT PRN ×2 (00:11→23:28)
[2017-04-05] MEDS: ALBUTEROL FS 2.5 MG/3 ML VIAL.NEB NEB SCH ×4 (01:24→19:43)
[2017-04-05] MEDS: HYDROGEL DRESSING 90 GM TUBE TP SCH ×3 (03:16→20:16)
[2017-04-05] MEDS: DEXILANT 30 MG GT SCH (05:54)
[2017-04-05] MEDS: BLOOD SUGAR DIAGNOSTIC 1 EACH STRIP IN SCH ×2 (05:54→18:00)
[2017-04-05 07:39] VITALS: BP 121/72
[2017-04-05] MEDS: ASPIRIN 81 MG TAB.CHEW GT SCH (09:30)
[2017-04-05] MEDS: TRILEPTAL GT SCH ×2 (09:30→20:13)
[2017-04-05] MEDS: PROSOURCE / PROSTAT (PYXIS) 30 ML UDC GT SCH ×2 (09:31→17:00)
[2017-04-05] MEDS: LEVETIRACETAM SOL (5 ML) 100 MG/ML UDC GT SCH ×2 (09:31→20:13)
[2017-04-05] MEDS: ACIDOPHILUS/BULGARICUS 1 EACH TAB.CHEW PO SCH ×3 (09:31→17:00)
[2017-04-05] MEDS: CALCIUM CARBONATE 500 MG TAB.CHEW GT SCH ×2 (09:31→17:00)
[2017-04-05] MEDS: HYDROGEN PEROXIDE 480 ML BOTTLE TP SCH ×2 (09:32→20:16)
[2017-04-05] MEDS: Z GUARD REMEDY 4 OZ OINT TP SCH ×4 (09:32→20:16)
[2017-04-05] MEDS: BALM TP SCH ×2 (09:32→20:16)
[2017-04-05] MEDS: VITAMINS A AND D 56.7 GM TUBE TP SCH ×2 (09:33→20:16)
[2017-04-05] MEDS: INSULIN REGULAR, HUMAN 100 UNIT/ML 3 ML VIAL SQ PRN (18:06)
[2017-04-05 19:52] VITALS: BP 130/77
[2017-04-05] MEDS: MULTIVIT, IRON, MIN NO. 8, FA 1 TAB GT SCH (20:15)
[2017-04-05] MEDS: ASCORBIC ACID 500 MG TABLET GT SCH (20:15)
[2017-04-05] MEDS: SENNOSIDES 8.6 MG TABLET GT SCH (20:15)
[2017-04-06] MEDS: ALBUTEROL FS 2.5 MG/3 ML VIAL.NEB NEB SCH ×4 (01:37→20:11)
[2017-04-06] MEDS: BLOOD SUGAR DIAGNOSTIC 1 EACH STRIP IN SCH ×2 (06:11→18:18)
[2017-04-06] MEDS: DEXILANT 30 MG GT SCH (06:11)
[2017-04-06 08:10] VITALS: BP 110/69
[2017-04-06] MEDS: HYDROGEN PEROXIDE 480 ML BOTTLE TP SCH ×2 (09:00→20:30)
[2017-04-06] MEDS: LEVETIRACETAM SOL (5 ML) 100 MG/ML UDC GT SCH ×2 (09:39→20:29)
[2017-04-06] MEDS: HYDROGEL DRESSING 90 GM TUBE TP SCH ×2 (09:39→20:30)
[2017-04-06] MEDS: TRILEPTAL GT SCH ×2 (09:39→20:28)
[2017-04-06] MEDS: ACIDOPHILUS/BULGARICUS 1 EACH TAB.CHEW PO SCH ×3 (09:39→17:15)
[2017-04-06] MEDS: PROSOURCE / PROSTAT (PYXIS) 30 ML UDC GT SCH ×2 (09:39→17:15)
[2017-04-06] MEDS: CALCIUM CARBONATE 500 MG TAB.CHEW GT SCH ×2 (09:39→17:15)
[2017-04-06] MEDS: ASPIRIN 81 MG TAB.CHEW GT SCH (09:39)
[2017-04-06] MEDS: Z GUARD REMEDY 4 OZ OINT TP SCH ×5 (09:40→20:30)
[2017-04-06] MEDS: VITAMINS A AND D 56.7 GM TUBE TP SCH ×2 (09:40→20:30)
[2017-04-06] MEDS: BALM TP SCH ×2 (09:40→20:30)
[2017-04-06] MEDS: LORAZEPAM 1 MG TABLET GT PRN (13:03)
--- NOTE | 2017-04-06 13:15 | NUR ---
Pt had a seizure lasting about 10 seconds, pt awake. BP 122/74 HR 109 T 98.4 R 20 O2 sat 100%. Ativan given as ordered for seizure. Notified Dr. Montaño.
--- NOTE | 2017-04-06 13:30 | NUR ---
Dr. Montaño ordered to check Trileptal and Keppra levels.
[2017-04-06] MEDS: GLYTROL 1,000 ML BAG GT PRN (14:23)
--- NOTE | 2017-04-06 15:05 | NUR ---
Called pt's sister Beckie. Notified her of pt's seizure episode and order to check Trileptal and Keppra levels. Sister expressed appreciation for call. She said she will visit pt tomorrow.
[2017-04-06] MEDS: INSULIN REGULAR, HUMAN 100 UNIT/ML 3 ML VIAL SQ PRN (18:20)
--- NOTE | 2017-04-06 18:48 | NUR ---
Pt noted with buttocks excoriation. Received order to apply Z-guard cream q shift and PRN for 14 days. Also received order for wound consult.
[2017-04-06 20:00] VITALS: BP 129/78
[2017-04-06] MEDS: SENNOSIDES 8.6 MG TABLET GT SCH (20:29)
[2017-04-06] MEDS: MULTIVIT, IRON, MIN NO. 8, FA 1 TAB GT SCH (20:29)
[2017-04-06] MEDS: ASCORBIC ACID 500 MG TABLET GT SCH (20:29)
[2017-04-07] MEDS: ALBUTEROL FS 2.5 MG/3 ML VIAL.NEB NEB SCH ×4 (02:23→19:38)
[2017-04-07] MEDS: DEXILANT 30 MG GT SCH (05:30)
[2017-04-07] MEDS: BLOOD SUGAR DIAGNOSTIC 1 EACH STRIP IN SCH ×2 (05:30→17:58)
[2017-04-07] MEDS: GLYTROL 1,000 ML BAG GT PRN ×2 (06:21→22:02)
[2017-04-07 07:49] VITALS: BP 106/64
--- NOTE | 2017-04-07 08:45 | NUR ---
Pt was seen by wound nurse Jaye for buttocks excoriation. Received order to apply Z-guard and Mepilex q shift and PRN for 14 days. Notified Beckie.
[2017-04-07] MEDS: VITAMINS A AND D 56.7 GM TUBE TP SCH ×2 (09:00→20:26)
[2017-04-07] MEDS: HYDROGEN PEROXIDE 480 ML BOTTLE TP SCH ×2 (09:00→20:26)
[2017-04-07] MEDS: Z GUARD REMEDY 4 OZ OINT TP SCH ×6 (09:00→20:26)
[2017-04-07] MEDS: HYDROGEL DRESSING 90 GM TUBE TP SCH ×2 (09:00→20:25)
[2017-04-07] MEDS: LEVETIRACETAM SOL (5 ML) 100 MG/ML UDC GT SCH ×2 (09:00→20:25)
[2017-04-07] MEDS: ASPIRIN 81 MG TAB.CHEW GT SCH (09:00)
[2017-04-07] MEDS: ACIDOPHILUS/BULGARICUS 1 EACH TAB.CHEW PO SCH ×3 (09:00→17:57)
[2017-04-07] MEDS: TRILEPTAL GT SCH ×2 (09:00→20:24)
[2017-04-07] MEDS: BALM TP SCH ×2 (09:00→20:26)
[2017-04-07] MEDS: PROSOURCE / PROSTAT (PYXIS) 30 ML UDC GT SCH ×2 (09:00→17:57)
[2017-04-07] MEDS: CALCIUM CARBONATE 500 MG TAB.CHEW GT SCH ×2 (09:00→17:57)
--- NOTE | 2017-04-07 09:31 | NUR ---
WOUND CARE CONSULT; PT SEEN FOR BUTTOCKS EXCORIATION WHICH IS IMPROVING WITH USE OF Z GUARD AND MEPILEX. DISCUSSED WITH NURSING STAFF. ALL SKIN PROTECTION MEASURES IN PLACE INCLUDING FIRST STEP MATTRESS. WILL SEE PRN. IN AGREEMENT WITH PLAN OF CARE.
[2017-04-07] MEDS: INSULIN REGULAR, HUMAN 100 UNIT/ML 3 ML VIAL SQ PRN (17:58)
[2017-04-07 20:06] VITALS: BP 139/68
[2017-04-07] MEDS: SENNOSIDES 8.6 MG TABLET GT SCH (20:25)
[2017-04-07] MEDS: MULTIVIT, IRON, MIN NO. 8, FA 1 TAB GT SCH (20:25)
[2017-04-07] MEDS: ASCORBIC ACID 500 MG TABLET GT SCH (20:25)
[2017-04-08] MEDS: ALBUTEROL FS 2.5 MG/3 ML VIAL.NEB NEB SCH ×4 (00:51→20:30)
[2017-04-08] MEDS: DEXILANT 30 MG GT SCH (05:31)
[2017-04-08] MEDS: BLOOD SUGAR DIAGNOSTIC 1 EACH STRIP IN SCH ×2 (05:31→17:25)
[2017-04-08 08:00] VITALS: BP 117/66
[2017-04-08] MEDS: ASPIRIN 81 MG TAB.CHEW GT SCH (09:05)
[2017-04-08] MEDS: BALM TP SCH ×2 (09:06→21:53)
[2017-04-08] MEDS: ACIDOPHILUS/BULGARICUS 1 EACH TAB.CHEW PO SCH ×3 (09:06→17:25)
[2017-04-08] MEDS: CALCIUM CARBONATE 500 MG TAB.CHEW GT SCH ×2 (09:06→17:25)
[2017-04-08] MEDS: PROSOURCE / PROSTAT (PYXIS) 30 ML UDC GT SCH ×2 (09:06→17:25)
[2017-04-08] MEDS: LEVETIRACETAM SOL (5 ML) 100 MG/ML UDC GT SCH ×2 (09:06→21:52)
[2017-04-08] MEDS: TRILEPTAL GT SCH ×2 (09:06→21:52)
[2017-04-08] MEDS: HYDROGEL DRESSING 90 GM TUBE TP SCH ×2 (09:06→21:53)
[2017-04-08] MEDS: HYDROGEN PEROXIDE 480 ML BOTTLE TP SCH ×2 (09:07→21:53)
[2017-04-08] MEDS: VITAMINS A AND D 56.7 GM TUBE TP SCH ×2 (09:07→21:53)
[2017-04-08] MEDS: Z GUARD REMEDY 4 OZ OINT TP SCH ×6 (09:07→21:53)
[2017-04-08] MEDS: GLYTROL 1,000 ML BAG GT PRN (14:36)
[2017-04-08 20:04] VITALS: BP 103/63
[2017-04-08] MEDS: SENNOSIDES 8.6 MG TABLET GT SCH (21:52)
[2017-04-08] MEDS: ASCORBIC ACID 500 MG TABLET GT SCH (21:53)
[2017-04-08] MEDS: MULTIVIT, IRON, MIN NO. 8, FA 1 TAB GT SCH (21:53)
[2017-04-09] MEDS: ALBUTEROL FS 2.5 MG/3 ML VIAL.NEB NEB SCH ×4 (01:43→19:39)
[2017-04-09] MEDS: BLOOD SUGAR DIAGNOSTIC 1 EACH STRIP IN SCH ×2 (05:24→17:26)
[2017-04-09] MEDS: DEXILANT 30 MG GT SCH (05:24)
[2017-04-09] MEDS: INSULIN REGULAR, HUMAN 100 UNIT/ML 3 ML VIAL SQ PRN (05:25)
[2017-04-09 07:39] VITALS: BP 108/64
[2017-04-09] MEDS: LEVETIRACETAM SOL (5 ML) 100 MG/ML UDC GT SCH ×2 (08:11→21:40)
[2017-04-09] MEDS: ASPIRIN 81 MG TAB.CHEW GT SCH (08:11)
[2017-04-09] MEDS: CALCIUM CARBONATE 500 MG TAB.CHEW GT SCH ×2 (08:11→17:26)
[2017-04-09] MEDS: PROSOURCE / PROSTAT (PYXIS) 30 ML UDC GT SCH ×2 (08:11→17:26)
[2017-04-09] MEDS: BALM TP SCH ×2 (08:11→21:40)
[2017-04-09] MEDS: ACIDOPHILUS/BULGARICUS 1 EACH TAB.CHEW PO SCH ×3 (08:11→17:26)
[2017-04-09] MEDS: TRILEPTAL GT SCH ×2 (08:11→21:40)
[2017-04-09] MEDS: HYDROGEL DRESSING 90 GM TUBE TP SCH ×2 (08:11→21:40)
[2017-04-09] MEDS: HYDROGEN PEROXIDE 480 ML BOTTLE TP SCH ×2 (08:12→21:40)
[2017-04-09] MEDS: VITAMINS A AND D 56.7 GM TUBE TP SCH ×2 (08:12→21:41)
[2017-04-09] MEDS: Z GUARD REMEDY 4 OZ OINT TP SCH ×6 (08:12→21:41)
[2017-04-09 10:18] LABS: LEVETIRACETAM 20.2 ug/mL (10.0-40.0)
--- NOTE | 2017-04-09 12:05 | NUR ---
Oxcarbazepine level 26, Levetiracetam level 20.2. Relayed results to Dr. Montaño.
--- NOTE | 2017-04-09 16:40 | NUR ---
Resident up in chris chair in the hallways by the window. Resident listened to stories about Dodgers, zoo and the Beatles that Resident smiled and raised her left hand.
[2017-04-09 20:01] VITALS: BP 118/68
[2017-04-09] MEDS: SENNOSIDES 8.6 MG TABLET GT SCH (21:40)
[2017-04-09] MEDS: ASCORBIC ACID 500 MG TABLET GT SCH (21:40)
[2017-04-09] MEDS: MULTIVIT, IRON, MIN NO. 8, FA 1 TAB GT SCH (21:40)
[2017-04-10] MEDS: GLYTROL 1,000 ML BAG GT PRN ×2 (00:22→18:00)
[2017-04-10] MEDS: ALBUTEROL FS 2.5 MG/3 ML VIAL.NEB NEB SCH ×4 (02:10→19:49)
[2017-04-10] MEDS: DEXILANT 30 MG GT SCH (05:06)
[2017-04-10] MEDS: BLOOD SUGAR DIAGNOSTIC 1 EACH STRIP IN SCH ×2 (05:06→17:14)
[2017-04-10] MEDS: diphenhydrAMINE HCL ELIX 25 MG/10 ML UDC GT PRN ×2 (05:07→23:16)
[2017-04-10] MEDS: INSULIN REGULAR, HUMAN 100 UNIT/ML 3 ML VIAL SQ PRN (05:07)
[2017-04-10 08:13] VITALS: BP 111/61
[2017-04-10] MEDS: ASPIRIN 81 MG TAB.CHEW GT SCH (09:36)
[2017-04-10] MEDS: TRILEPTAL GT SCH ×2 (09:37→20:28)
[2017-04-10] MEDS: PROSOURCE / PROSTAT (PYXIS) 30 ML UDC GT SCH ×2 (09:38→16:56)
[2017-04-10] MEDS: LEVETIRACETAM SOL (5 ML) 100 MG/ML UDC GT SCH ×2 (09:38→20:29)
[2017-04-10] MEDS: CALCIUM CARBONATE 500 MG TAB.CHEW GT SCH ×2 (09:39→16:56)
[2017-04-10] MEDS: BALM TP SCH ×2 (09:39→20:29)
[2017-04-10] MEDS: ACIDOPHILUS/BULGARICUS 1 EACH TAB.CHEW PO SCH ×3 (09:39→16:56)
[2017-04-10] MEDS: VITAMINS A AND D 56.7 GM TUBE TP SCH ×2 (09:40→20:30)
[2017-04-10] MEDS: Z GUARD REMEDY 4 OZ OINT TP SCH ×6 (09:40→20:30)
[2017-04-10] MEDS: HYDROGEL DRESSING 90 GM TUBE TP SCH ×2 (10:15→20:29)
[2017-04-10] MEDS: HYDROGEN PEROXIDE 480 ML BOTTLE TP SCH ×2 (10:15→20:29)
[2017-04-10 19:58] VITALS: BP 128/69
[2017-04-10] MEDS: MULTIVIT, IRON, MIN NO. 8, FA 1 TAB GT SCH (20:29)
[2017-04-10] MEDS: SENNOSIDES 8.6 MG TABLET GT SCH (20:29)
[2017-04-10] MEDS: ASCORBIC ACID 500 MG TABLET GT SCH (20:29)
[2017-04-11] MEDS: ALBUTEROL FS 2.5 MG/3 ML VIAL.NEB NEB SCH ×4 (01:25→19:48)
[2017-04-11] MEDS: INSULIN REGULAR, HUMAN 100 UNIT/ML 3 ML VIAL SQ PRN (05:43)
[2017-04-11] MEDS: BLOOD SUGAR DIAGNOSTIC 1 EACH STRIP IN SCH ×2 (05:43→17:57)
[2017-04-11] MEDS: DEXILANT 30 MG GT SCH (05:43)
[2017-04-11] MEDS: MAGNESIUM HYDROXIDE 30 ML UDC GT PRN (06:41)
[2017-04-11] MEDS: GLYTROL 1,000 ML BAG GT PRN (06:41)
[2017-04-11 07:29] VITALS: BP 105/55
[2017-04-11] MEDS: Z GUARD REMEDY 4 OZ OINT TP SCH ×6 (08:58→21:42)
[2017-04-11] MEDS: VITAMINS A AND D 56.7 GM TUBE TP SCH ×2 (08:58→21:42)
[2017-04-11] MEDS: PROSOURCE / PROSTAT (PYXIS) 30 ML UDC GT SCH ×2 (08:58→17:41)
[2017-04-11] MEDS: ASPIRIN 81 MG TAB.CHEW GT SCH (08:58)
[2017-04-11] MEDS: LEVETIRACETAM SOL (5 ML) 100 MG/ML UDC GT SCH ×2 (08:58→21:41)
[2017-04-11] MEDS: BALM TP SCH ×2 (08:58→21:41)
[2017-04-11] MEDS: CALCIUM CARBONATE 500 MG TAB.CHEW GT SCH ×2 (08:58→17:41)
[2017-04-11] MEDS: HYDROGEN PEROXIDE 480 ML BOTTLE TP SCH ×2 (08:58→21:41)
[2017-04-11] MEDS: TRILEPTAL GT SCH ×2 (08:58→21:41)
[2017-04-11] MEDS: HYDROGEL DRESSING 90 GM TUBE TP SCH ×2 (08:58→21:41)
[2017-04-11] MEDS: ACIDOPHILUS/BULGARICUS 1 EACH TAB.CHEW PO SCH ×3 (08:58→17:41)
--- NOTE | 2017-04-11 16:00 | NUR ---
Notified family c/o Beckie regarding L axilla open skin and treatment order. Reminded family resident will have a hair cut on Thursday saying she will be in that day. Appreciated the call.
[2017-04-11 19:47] VITALS: BP 118/72
[2017-04-11] MEDS: ASCORBIC ACID 500 MG TABLET GT SCH (21:41)
[2017-04-11] MEDS: MULTIVIT, IRON, MIN NO. 8, FA 1 TAB GT SCH (21:41)
[2017-04-11] MEDS: SENNOSIDES 8.6 MG TABLET GT SCH (21:41)
[2017-04-11] MEDS: NEOMY SULF/BACITRAC ZN/POLY 15 GM TUBE TP SCH (21:42)
[2017-04-12] MEDS: GLYTROL 1,000 ML BAG GT PRN (00:20)
[2017-04-12] MEDS: ALBUTEROL FS 2.5 MG/3 ML VIAL.NEB NEB SCH ×4 (01:08→19:38)
[2017-04-12] MEDS: INSULIN REGULAR, HUMAN 100 UNIT/ML 3 ML VIAL SQ PRN ×2 (06:02→17:44)
[2017-04-12] MEDS: DEXILANT 30 MG GT SCH (06:02)
[2017-04-12] MEDS: BLOOD SUGAR DIAGNOSTIC 1 EACH STRIP IN SCH ×2 (06:02→17:43)
[2017-04-12 07:25] VITALS: BP 118/63
[2017-04-12] MEDS: PROSOURCE / PROSTAT (PYXIS) 30 ML UDC GT SCH ×2 (09:55→17:43)
[2017-04-12] MEDS: ACIDOPHILUS/BULGARICUS 1 EACH TAB.CHEW PO SCH ×3 (09:55→17:43)
[2017-04-12] MEDS: HYDROGEN PEROXIDE 480 ML BOTTLE TP SCH ×2 (09:55→20:19)
[2017-04-12] MEDS: CALCIUM CARBONATE 500 MG TAB.CHEW GT SCH ×2 (09:55→17:43)
[2017-04-12] MEDS: LEVETIRACETAM SOL (5 ML) 100 MG/ML UDC GT SCH ×2 (09:55→20:18)
[2017-04-12] MEDS: TRILEPTAL GT SCH ×2 (09:55→20:18)
[2017-04-12] MEDS: NEOMY SULF/BACITRAC ZN/POLY 15 GM TUBE TP SCH ×2 (09:55→20:19)
[2017-04-12] MEDS: HYDROGEL DRESSING 90 GM TUBE TP SCH ×2 (09:55→20:19)
[2017-04-12] MEDS: BALM TP SCH ×2 (09:55→20:19)
[2017-04-12] MEDS: ASPIRIN 81 MG TAB.CHEW GT SCH (09:55)
[2017-04-12] MEDS: Z GUARD REMEDY 4 OZ OINT TP SCH ×6 (09:56→20:20)
[2017-04-12] MEDS: VITAMINS A AND D 56.7 GM TUBE TP SCH ×2 (09:56→20:20)
[2017-04-12 20:12] VITALS: BP 133/87
[2017-04-12] MEDS: MULTIVIT, IRON, MIN NO. 8, FA 1 TAB GT SCH (20:18)
[2017-04-12] MEDS: SENNOSIDES 8.6 MG TABLET GT SCH (20:18)
[2017-04-12] MEDS: ASCORBIC ACID 500 MG TABLET GT SCH (20:19)
[2017-04-13] MEDS: ALBUTEROL FS 2.5 MG/3 ML VIAL.NEB NEB SCH ×4 (00:59→19:30)
[2017-04-13] MEDS: GLYTROL 1,000 ML BAG GT PRN ×2 (05:16→22:47)
[2017-04-13] MEDS: BLOOD SUGAR DIAGNOSTIC 1 EACH STRIP IN SCH ×2 (05:17→18:58)
[2017-04-13] MEDS: DEXILANT 30 MG GT SCH (05:17)
[2017-04-13 08:01] VITALS: BP 136/76
[2017-04-13] MEDS: PROSOURCE / PROSTAT (PYXIS) 30 ML UDC GT SCH ×2 (09:16→17:00)
[2017-04-13] MEDS: ASPIRIN 81 MG TAB.CHEW GT SCH (09:16)
[2017-04-13] MEDS: TRILEPTAL GT SCH ×2 (09:16→20:31)
[2017-04-13] MEDS: ACIDOPHILUS/BULGARICUS 1 EACH TAB.CHEW PO SCH ×3 (09:16→17:00)
[2017-04-13] MEDS: LEVETIRACETAM SOL (5 ML) 100 MG/ML UDC GT SCH ×2 (09:16→20:31)
[2017-04-13] MEDS: CALCIUM CARBONATE 500 MG TAB.CHEW GT SCH ×2 (09:16→17:00)
[2017-04-13] MEDS: HYDROGEN PEROXIDE 480 ML BOTTLE TP SCH ×2 (09:17→20:33)
[2017-04-13] MEDS: HYDROGEL DRESSING 90 GM TUBE TP SCH ×2 (09:17→20:33)
[2017-04-13] MEDS: BALM TP SCH ×2 (09:17→20:33)
[2017-04-13] MEDS: NEOMY SULF/BACITRAC ZN/POLY 15 GM TUBE TP SCH ×2 (09:17→20:33)
[2017-04-13] MEDS: Z GUARD REMEDY 4 OZ OINT TP SCH ×6 (09:18→20:34)
[2017-04-13] MEDS: VITAMINS A AND D 56.7 GM TUBE TP SCH ×2 (09:31→20:34)
[2017-04-13] MEDS: INSULIN REGULAR, HUMAN 100 UNIT/ML 3 ML VIAL SQ PRN (19:08)
[2017-04-13 20:07] VITALS: BP 127/59
[2017-04-13] MEDS: SENNOSIDES 8.6 MG TABLET GT SCH (20:31)
[2017-04-13] MEDS: MULTIVIT, IRON, MIN NO. 8, FA 1 TAB GT SCH (20:32)
[2017-04-13] MEDS: ASCORBIC ACID 500 MG TABLET GT SCH (20:33)
[2017-04-14] MEDS: ALBUTEROL FS 2.5 MG/3 ML VIAL.NEB NEB SCH ×4 (02:18→20:17)
[2017-04-14] MEDS: BLOOD SUGAR DIAGNOSTIC 1 EACH STRIP IN SCH ×2 (05:32→17:59)
[2017-04-14] MEDS: DEXILANT 30 MG GT SCH (05:32)
[2017-04-14 07:33] VITALS: BP 92/60
[2017-04-14] MEDS: BALM TP SCH ×2 (09:26→21:51)
[2017-04-14] MEDS: LEVETIRACETAM SOL (5 ML) 100 MG/ML UDC GT SCH ×2 (09:26→21:51)
[2017-04-14] MEDS: ASPIRIN 81 MG TAB.CHEW GT SCH (09:26)
[2017-04-14] MEDS: HYDROGEN PEROXIDE 480 ML BOTTLE TP SCH ×2 (09:26→21:51)
[2017-04-14] MEDS: CALCIUM CARBONATE 500 MG TAB.CHEW GT SCH ×2 (09:26→16:21)
[2017-04-14] MEDS: PROSOURCE / PROSTAT (PYXIS) 30 ML UDC GT SCH ×2 (09:26→16:21)
[2017-04-14] MEDS: ACIDOPHILUS/BULGARICUS 1 EACH TAB.CHEW PO SCH ×3 (09:26→16:21)
[2017-04-14] MEDS: TRILEPTAL GT SCH ×2 (09:26→21:50)
[2017-04-14] MEDS: HYDROGEL DRESSING 90 GM TUBE TP SCH ×2 (09:26→21:51)
[2017-04-14] MEDS: NEOMY SULF/BACITRAC ZN/POLY 15 GM TUBE TP SCH ×2 (09:27→21:51)
[2017-04-14] MEDS: Z GUARD REMEDY 4 OZ OINT TP SCH ×6 (09:27→21:51)
[2017-04-14] MEDS: VITAMINS A AND D 56.7 GM TUBE TP SCH ×2 (09:28→21:52)
--- NOTE | 2017-04-14 13:42 | NUR ---
Reminded sister Beckie that resident will have her hair cut tomorrow (Saturday April 15, 2017). Informed her that hairdresser will come around 8:30AM to cut her hair. Asked if she could arrive by 8:15AM to be safe and she stated that she will be coming to assist the hairdresser.
[2017-04-14] MEDS: GLYTROL 1,000 ML BAG GT PRN (14:56)
[2017-04-14] MEDS: INSULIN REGULAR, HUMAN 100 UNIT/ML 3 ML VIAL SQ PRN (18:00)
[2017-04-14 19:55] VITALS: BP 105/66
[2017-04-14] MEDS: MULTIVIT, IRON, MIN NO. 8, FA 1 TAB GT SCH (21:51)
[2017-04-14] MEDS: ASCORBIC ACID 500 MG TABLET GT SCH (21:51)
[2017-04-14] MEDS: SENNOSIDES 8.6 MG TABLET GT SCH (21:51)
[2017-04-15] MEDS: ALBUTEROL FS 2.5 MG/3 ML VIAL.NEB NEB SCH ×4 (01:54→19:59)
[2017-04-15] MEDS: DEXILANT 30 MG GT SCH (05:48)
[2017-04-15] MEDS: BLOOD SUGAR DIAGNOSTIC 1 EACH STRIP IN SCH ×2 (05:50→18:09)
[2017-04-15] MEDS: GLYTROL 1,000 ML BAG GT PRN ×2 (05:55→21:08)
[2017-04-15] MEDS: HYDROGEN PEROXIDE 480 ML BOTTLE TP SCH ×2 (09:00→20:15)
[2017-04-15] MEDS: ASPIRIN 81 MG TAB.CHEW GT SCH (09:00)
[2017-04-15] MEDS: LEVETIRACETAM SOL (5 ML) 100 MG/ML UDC GT SCH ×2 (09:00→20:15)
[2017-04-15] MEDS: TRILEPTAL GT SCH ×2 (09:00→20:15)
[2017-04-15] MEDS: NEOMY SULF/BACITRAC ZN/POLY 15 GM TUBE TP SCH ×2 (09:00→20:16)
[2017-04-15] MEDS: BALM TP SCH ×2 (09:00→20:15)
[2017-04-15] MEDS: PROSOURCE / PROSTAT (PYXIS) 30 ML UDC GT SCH ×2 (09:00→17:00)
[2017-04-15] MEDS: Z GUARD REMEDY 4 OZ OINT TP SCH ×6 (09:00→20:16)
[2017-04-15] MEDS: CALCIUM CARBONATE 500 MG TAB.CHEW GT SCH ×2 (09:00→17:00)
[2017-04-15] MEDS: HYDROGEL DRESSING 90 GM TUBE TP SCH ×2 (09:00→20:15)
[2017-04-15] MEDS: ACIDOPHILUS/BULGARICUS 1 EACH TAB.CHEW PO SCH ×3 (09:00→17:00)
[2017-04-15] MEDS: VITAMINS A AND D 56.7 GM TUBE TP SCH ×2 (09:00→20:16)
--- NOTE | 2017-04-15 10:09 | NUR ---
Resident received her haircut by stephanie Collins. Sister was present for the haircut. Sister also stated that she wants to find out if resident is able to receive a customized wheelchair. SW spoke to charge nurse who will obtain an order . Called [facility] ([phone]) who stated that they would have to run the resident's insurance (medi-[employer]) to see if she qualifies. SW will await physician's order to see if she qualifies. SW to follow up. Informed resident's sister Beckie.
[2017-04-15] MEDS: BISACODYL SUPP (10 MG) 10 MG/SUPP.RECT SUPP.RECT RC PRN (18:50)
[2017-04-15 19:52] VITALS: BP 123/58
[2017-04-15] MEDS: MULTIVIT, IRON, MIN NO. 8, FA 1 TAB GT SCH (20:15)
[2017-04-15] MEDS: SENNOSIDES 8.6 MG TABLET GT SCH (20:15)
[2017-04-15] MEDS: ASCORBIC ACID 500 MG TABLET GT SCH (20:15)
[2017-04-16] MEDS: ALBUTEROL FS 2.5 MG/3 ML VIAL.NEB NEB SCH ×4 (01:50→19:44)
[2017-04-16] MEDS: DEXILANT 30 MG GT SCH (05:31)
[2017-04-16] MEDS: BLOOD SUGAR DIAGNOSTIC 1 EACH STRIP IN SCH ×2 (05:40→18:06)
[2017-04-16 07:39] VITALS: BP_SYST 116; BP_SYST 127; BP_DIAS 53; BP_DIAS 75
[2017-04-16] MEDS: HYDROGEL DRESSING 90 GM TUBE TP SCH ×2 (09:00→20:22)
[2017-04-16] MEDS: HYDROGEN PEROXIDE 480 ML BOTTLE TP SCH ×2 (09:00→20:22)
[2017-04-16] MEDS: BALM TP SCH ×2 (09:00→20:22)
[2017-04-16] MEDS: Z GUARD REMEDY 4 OZ OINT TP SCH ×6 (09:00→20:23)
[2017-04-16] MEDS: NEOMY SULF/BACITRAC ZN/POLY 15 GM TUBE TP SCH ×2 (09:00→20:22)
[2017-04-16] MEDS: VITAMINS A AND D 56.7 GM TUBE TP SCH ×2 (09:00→20:23)
[2017-04-16] MEDS: LEVETIRACETAM SOL (5 ML) 100 MG/ML UDC GT SCH ×2 (09:33→20:21)
[2017-04-16] MEDS: ACIDOPHILUS/BULGARICUS 1 EACH TAB.CHEW PO SCH ×3 (09:33→17:01)
[2017-04-16] MEDS: CALCIUM CARBONATE 500 MG TAB.CHEW GT SCH ×2 (09:33→17:01)
[2017-04-16] MEDS: PROSOURCE / PROSTAT (PYXIS) 30 ML UDC GT SCH ×2 (09:33→17:01)
[2017-04-16] MEDS: TRILEPTAL GT SCH ×2 (09:33→20:21)
[2017-04-16] MEDS: ASPIRIN 81 MG TAB.CHEW GT SCH (09:33)
[2017-04-16] MEDS: GLYTROL 1,000 ML BAG GT PRN (15:35)
[2017-04-16] MEDS: INSULIN REGULAR, HUMAN 100 UNIT/ML 3 ML VIAL SQ PRN (18:09)
[2017-04-16] MEDS: SENNOSIDES 8.6 MG TABLET GT SCH (20:21)
[2017-04-16] MEDS: ASCORBIC ACID 500 MG TABLET GT SCH (20:22)
[2017-04-16] MEDS: MULTIVIT, IRON, MIN NO. 8, FA 1 TAB GT SCH (20:22)
[2017-04-16 20:50] VITALS: BP 112/68
[2017-04-17] MEDS: ALBUTEROL FS 2.5 MG/3 ML VIAL.NEB NEB SCH ×4 (01:26→19:33)
[2017-04-17] MEDS: INSULIN REGULAR, HUMAN 100 UNIT/ML 3 ML VIAL SQ PRN (05:48)
[2017-04-17] MEDS: GLYTROL 1,000 ML BAG GT PRN ×2 (05:48→23:05)
[2017-04-17] MEDS: BLOOD SUGAR DIAGNOSTIC 1 EACH STRIP IN SCH ×2 (05:48→17:48)
[2017-04-17] MEDS: DEXILANT 30 MG GT SCH (05:48)
[2017-04-17 07:30] VITALS: BP 109/71
[2017-04-17] MEDS: ASPIRIN 81 MG TAB.CHEW GT SCH (08:07)
[2017-04-17] MEDS: Z GUARD REMEDY 4 OZ OINT TP SCH ×6 (08:08→21:21)
[2017-04-17] MEDS: VITAMINS A AND D 56.7 GM TUBE TP SCH ×2 (08:08→21:21)
[2017-04-17] MEDS: BALM TP SCH ×2 (08:09→21:20)
[2017-04-17] MEDS: PROSOURCE / PROSTAT (PYXIS) 30 ML UDC GT SCH ×2 (08:09→16:28)
[2017-04-17] MEDS: HYDROGEN PEROXIDE 480 ML BOTTLE TP SCH ×2 (08:09→21:20)
[2017-04-17] MEDS: ACIDOPHILUS/BULGARICUS 1 EACH TAB.CHEW PO SCH ×3 (08:09→16:28)
[2017-04-17] MEDS: CALCIUM CARBONATE 500 MG TAB.CHEW GT SCH ×2 (08:09→16:28)
[2017-04-17] MEDS: NEOMY SULF/BACITRAC ZN/POLY 15 GM TUBE TP SCH ×2 (08:09→21:20)
[2017-04-17] MEDS: HYDROGEL DRESSING 90 GM TUBE TP SCH ×2 (08:09→21:20)
[2017-04-17] MEDS: TRILEPTAL GT SCH ×2 (08:13→21:20)
[2017-04-17] MEDS: LEVETIRACETAM SOL (5 ML) 100 MG/ML UDC GT SCH ×2 (08:13→21:20)
--- NOTE | 2017-04-17 09:45 | NUR ---
Seen and examined by with no new orders.
--- NOTE | 2017-04-17 11:00 | NUR ---
Tracheostomy tube changed by RT.No bleeding,no SOB,no distress noticed.continue to monitor.
--- NOTE | 2017-04-17 11:05 | NUR ---
Order obtained for customizable wheelchair and accessories. SW called [employer] ( ; fax: [phone]) and faxed facesheet and order for them to check eligibility. Followed up with Arthur who stated that he will check eligibility and will call the high school social science teacher back once it is checked.
--- NOTE | 2017-04-17 15:25 | NUR ---
Received a call from Arthur ([employer]- ; fax: [phone]) who stated that resident qualifies for a customizable wheelchair and accessories. He stated that the next step is for them to schedule an evaluation appointment and Arthur stated that their team will come to the hospital. STEPHEN informed him that resident is not able to communicate and that sister is involved in her care and should be present for the evaluation. STEPHEN provided him with the phone number of the resident's sister (Beckie Chu) and he stated he will call her to schedule the evaluation at the hospital. Currently, he stated that the turn around time for evaluations is 1-2 weeks. Informed sister Beckie who appreciated the information and will await for phone call to schedule customizable wheelchair evaluation.
--- NOTE | 2017-04-17 16:05 | NUR ---
SA STORE FACILITY TECHNICIAN: NOTES NOTED F/C BYPASSING, INSERTED NEW F/C 18FR/10ML, APRIL. WELL. WILL CONTINUE TO MONITOR. PERICARE RENDERED BY STAFF.
[2017-04-17 19:10] VITALS: BP 117/72
[2017-04-17] MEDS: ASCORBIC ACID 500 MG TABLET GT SCH (21:20)
[2017-04-17] MEDS: MULTIVIT, IRON, MIN NO. 8, FA 1 TAB GT SCH (21:20)
[2017-04-17] MEDS: SENNOSIDES 8.6 MG TABLET GT SCH (21:20)
[2017-04-18] MEDS: diphenhydrAMINE HCL ELIX 25 MG/10 ML UDC GT PRN (01:06)
[2017-04-18] MEDS: ALBUTEROL FS 2.5 MG/3 ML VIAL.NEB NEB SCH ×4 (01:07→20:13)
[2017-04-18] MEDS: DEXILANT 30 MG GT SCH (06:04)
[2017-04-18] MEDS: BLOOD SUGAR DIAGNOSTIC 1 EACH STRIP IN SCH ×2 (06:25→17:34)
[2017-04-18] MEDS: INSULIN REGULAR, HUMAN 100 UNIT/ML 3 ML VIAL SQ PRN (06:25)
[2017-04-18 07:44] VITALS: BP 125/50
[2017-04-18] MEDS: ASPIRIN 81 MG TAB.CHEW GT SCH (09:22)
[2017-04-18] MEDS: TRILEPTAL GT SCH ×2 (09:22→21:11)
[2017-04-18] MEDS: LEVETIRACETAM SOL (5 ML) 100 MG/ML UDC GT SCH ×2 (09:24→21:11)
[2017-04-18] MEDS: CALCIUM CARBONATE 500 MG TAB.CHEW GT SCH ×2 (09:25→17:34)
[2017-04-18] MEDS: PROSOURCE / PROSTAT (PYXIS) 30 ML UDC GT SCH ×2 (09:25→17:34)
[2017-04-18] MEDS: ACIDOPHILUS/BULGARICUS 1 EACH TAB.CHEW PO SCH ×3 (09:25→17:34)
[2017-04-18] MEDS: Z GUARD REMEDY 4 OZ OINT TP SCH ×6 (09:26→21:00)
[2017-04-18] MEDS: BALM TP SCH ×2 (09:26→21:00)
[2017-04-18] MEDS: HYDROGEL DRESSING 90 GM TUBE TP SCH ×2 (10:45→21:00)
[2017-04-18] MEDS: VITAMINS A AND D 56.7 GM TUBE TP SCH ×2 (10:45→21:00)
[2017-04-18] MEDS: HYDROGEN PEROXIDE 480 ML BOTTLE TP SCH ×2 (10:45→21:00)
[2017-04-18] MEDS: NEOMY SULF/BACITRAC ZN/POLY 15 GM TUBE TP SCH (10:45)
--- NOTE | 2017-04-18 11:00 | NUR ---
Seen and examined by Colleen with no new orders. Addendum: 04/18/17 at 1439 by CAL MEDEL RN late entry for 04/17/17
[2017-04-18 19:33] VITALS: BP 120/55
[2017-04-18] MEDS: ASCORBIC ACID 500 MG TABLET GT SCH (21:11)
[2017-04-18] MEDS: SENNOSIDES 8.6 MG TABLET GT SCH (21:11)
[2017-04-18] MEDS: MULTIVIT, IRON, MIN NO. 8, FA 1 TAB GT SCH (21:12)
--- NOTE | 2017-04-19 | NUR ---
SA/INFRASTRUCTURE TECHNICIAN; BS 127 NO COVERAGE.
[2017-04-19] MEDS: ALBUTEROL FS 2.5 MG/3 ML VIAL.NEB NEB SCH ×4 (01:47→19:30)
[2017-04-19] MEDS: DEXILANT 30 MG GT SCH (05:23)
--- NOTE | 2017-04-19 06:00 | NUR ---
BS 110 NO COVERAGE.
[2017-04-19] MEDS: BLOOD SUGAR DIAGNOSTIC 1 EACH STRIP IN SCH ×2 (06:46→17:36)
--- NOTE | 2017-04-19 07:00 | NUR ---
SLEPT ONLY FOR SHORT PERIODS. GT FEEDING ON PROGRESS. AM CARE DONE BY THE SENIOR MARKETING ASSOCIATE.
[2017-04-19 08:20] VITALS: BP 118/63
[2017-04-19] MEDS: ACIDOPHILUS/BULGARICUS 1 EACH TAB.CHEW PO SCH ×3 (08:50→16:41)
[2017-04-19] MEDS: ASPIRIN 81 MG TAB.CHEW GT SCH (08:50)
[2017-04-19] MEDS: CALCIUM CARBONATE 500 MG TAB.CHEW GT SCH ×2 (08:50→16:41)
[2017-04-19] MEDS: LEVETIRACETAM SOL (5 ML) 100 MG/ML UDC GT SCH ×2 (08:50→21:06)
[2017-04-19] MEDS: PROSOURCE / PROSTAT (PYXIS) 30 ML UDC GT SCH ×2 (08:50→16:41)
[2017-04-19] MEDS: TRILEPTAL GT SCH ×2 (08:50→21:06)
[2017-04-19] MEDS: BALM TP SCH ×2 (08:51→21:07)
[2017-04-19] MEDS: HYDROGEN PEROXIDE 480 ML BOTTLE TP SCH ×2 (08:51→21:07)
[2017-04-19] MEDS: Z GUARD REMEDY 4 OZ OINT TP SCH ×6 (08:51→21:07)
[2017-04-19] MEDS: HYDROGEL DRESSING 90 GM TUBE TP SCH ×2 (08:51→21:07)
[2017-04-19] MEDS: VITAMINS A AND D 56.7 GM TUBE TP SCH ×2 (08:52→21:07)
[2017-04-19] MEDS: GLYTROL 1,000 ML BAG GT PRN (15:12)
[2017-04-19] MEDS: INSULIN REGULAR, HUMAN 100 UNIT/ML 3 ML VIAL SQ PRN (17:36)
[2017-04-19 20:03] VITALS: BP 104/56
[2017-04-19] MEDS: SENNOSIDES 8.6 MG TABLET GT SCH (21:06)
[2017-04-19] MEDS: ASCORBIC ACID 500 MG TABLET GT SCH (21:06)
[2017-04-19] MEDS: MULTIVIT, IRON, MIN NO. 8, FA 1 TAB GT SCH (21:06)
[2017-04-20] MEDS: ALBUTEROL FS 2.5 MG/3 ML VIAL.NEB NEB SCH ×4 (01:39→20:48)
[2017-04-20] MEDS: BLOOD SUGAR DIAGNOSTIC 1 EACH STRIP IN SCH ×2 (06:02→17:42)
[2017-04-20] MEDS: DEXILANT 30 MG GT SCH (06:02)
[2017-04-20 07:36] VITALS: BP 131/93
[2017-04-20 08:00] VITALS: BP 131/93
[2017-04-20] MEDS: TRILEPTAL GT SCH ×2 (08:00→21:16)
[2017-04-20] MEDS: ASPIRIN 81 MG TAB.CHEW GT SCH (08:00)
[2017-04-20] MEDS: PROSOURCE / PROSTAT (PYXIS) 30 ML UDC GT SCH ×2 (08:00→16:00)
[2017-04-20] MEDS: CALCIUM CARBONATE 500 MG TAB.CHEW GT SCH ×2 (08:00→16:00)
[2017-04-20] MEDS: LEVETIRACETAM SOL (5 ML) 100 MG/ML UDC GT SCH ×2 (08:00→21:16)
[2017-04-20] MEDS: ACIDOPHILUS/BULGARICUS 1 EACH TAB.CHEW PO SCH ×3 (08:00→16:00)
[2017-04-20] MEDS: BALM TP SCH ×2 (09:00→21:16)
[2017-04-20] MEDS: Z GUARD REMEDY 4 OZ OINT TP SCH ×6 (09:00→21:18)
[2017-04-20] MEDS: HYDROGEL DRESSING 90 GM TUBE TP SCH ×2 (09:00→21:16)
[2017-04-20] MEDS: VITAMINS A AND D 56.7 GM TUBE TP SCH ×2 (09:00→21:18)
[2017-04-20] MEDS: HYDROGEN PEROXIDE 480 ML BOTTLE TP SCH ×2 (09:00→21:16)
[2017-04-20 19:47] VITALS: BP 125/70
[2017-04-20] MEDS: MULTIVIT, IRON, MIN NO. 8, FA 1 TAB GT SCH (21:16)
[2017-04-20] MEDS: SENNOSIDES 8.6 MG TABLET GT SCH (21:16)
[2017-04-20] MEDS: ASCORBIC ACID 500 MG TABLET GT SCH (21:16)
[2017-04-21] MEDS: ALBUTEROL FS 2.5 MG/3 ML VIAL.NEB NEB SCH ×4 (01:54→19:08)
[2017-04-21] MEDS: BLOOD SUGAR DIAGNOSTIC 1 EACH STRIP IN SCH ×2 (06:05→17:49)
[2017-04-21] MEDS: DEXILANT 30 MG GT SCH (06:05)
[2017-04-21 07:38] VITALS: BP 93/45
[2017-04-21] MEDS: ASPIRIN 81 MG TAB.CHEW GT SCH (09:32)
[2017-04-21] MEDS: ACIDOPHILUS/BULGARICUS 1 EACH TAB.CHEW PO SCH ×3 (09:32→17:26)
[2017-04-21] MEDS: LEVETIRACETAM SOL (5 ML) 100 MG/ML UDC GT SCH ×2 (09:32→21:19)
[2017-04-21] MEDS: PROSOURCE / PROSTAT (PYXIS) 30 ML UDC GT SCH ×2 (09:32→17:26)
[2017-04-21] MEDS: CALCIUM CARBONATE 500 MG TAB.CHEW GT SCH ×2 (09:32→17:26)
[2017-04-21] MEDS: TRILEPTAL GT SCH ×2 (09:32→21:19)
[2017-04-21] MEDS: HYDROGEL DRESSING 90 GM TUBE TP SCH ×2 (09:32→21:19)
[2017-04-21] MEDS: BALM TP SCH ×2 (09:33→21:19)
[2017-04-21] MEDS: HYDROGEN PEROXIDE 480 ML BOTTLE TP SCH ×2 (09:33→21:19)
[2017-04-21] MEDS: VITAMINS A AND D 56.7 GM TUBE TP SCH ×2 (09:33→21:19)
[2017-04-21] MEDS: Z GUARD REMEDY 4 OZ OINT TP SCH ×5 (09:33→21:19)
--- NOTE | 2017-04-21 15:00 | NUR ---
Got new order for clarification of RNA order,noted and carried out.
[2017-04-21] MEDS: GLYTROL 1,000 ML BAG GT PRN (17:36)
[2017-04-21] MEDS: INSULIN REGULAR, HUMAN 100 UNIT/ML 3 ML VIAL SQ PRN (17:49)
[2017-04-21] MEDS: ASCORBIC ACID 500 MG TABLET GT SCH (21:19)
[2017-04-21] MEDS: MULTIVIT, IRON, MIN NO. 8, FA 1 TAB GT SCH (21:19)
[2017-04-21] MEDS: SENNOSIDES 8.6 MG TABLET GT SCH (21:19)
[2017-04-21 21:58] VITALS: BP 134/77
[2017-04-22] MEDS: ALBUTEROL FS 2.5 MG/3 ML VIAL.NEB NEB SCH ×4 (01:15→19:14)
[2017-04-22] MEDS: DEXILANT 30 MG GT SCH (06:05)
[2017-04-22] MEDS: BLOOD SUGAR DIAGNOSTIC 1 EACH STRIP IN SCH ×2 (06:05→17:13)
[2017-04-22 08:00] VITALS: BP 121/71
[2017-04-22] MEDS: CALCIUM CARBONATE 500 MG TAB.CHEW GT SCH ×2 (09:00→17:13)
[2017-04-22] MEDS: Z GUARD REMEDY 4 OZ OINT TP SCH ×4 (09:00→21:09)
[2017-04-22] MEDS: ASPIRIN 81 MG TAB.CHEW GT SCH (09:00)
[2017-04-22] MEDS: PROSOURCE / PROSTAT (PYXIS) 30 ML UDC GT SCH ×2 (09:00→17:13)
[2017-04-22] MEDS: HYDROGEL DRESSING 90 GM TUBE TP SCH ×2 (09:00→21:08)
[2017-04-22] MEDS: LEVETIRACETAM SOL (5 ML) 100 MG/ML UDC GT SCH ×2 (09:00→21:07)
[2017-04-22] MEDS: VITAMINS A AND D 56.7 GM TUBE TP SCH ×2 (09:00→21:10)
[2017-04-22] MEDS: ACIDOPHILUS/BULGARICUS 1 EACH TAB.CHEW PO SCH ×3 (09:00→17:13)
[2017-04-22] MEDS: TRILEPTAL GT SCH ×2 (09:00→21:07)
[2017-04-22] MEDS: HYDROGEN PEROXIDE 480 ML BOTTLE TP SCH ×2 (09:00→21:08)
[2017-04-22] MEDS: BALM TP SCH ×2 (09:00→21:08)
[2017-04-22] MEDS: GLYTROL 1,000 ML BAG GT PRN (17:04)
[2017-04-22 19:58] VITALS: BP 125/78
[2017-04-22] MEDS: SENNOSIDES 8.6 MG TABLET GT SCH (21:07)
[2017-04-22] MEDS: ASCORBIC ACID 500 MG TABLET GT SCH (21:07)
[2017-04-22] MEDS: MULTIVIT, IRON, MIN NO. 8, FA 1 TAB GT SCH (21:07)
[2017-04-22] MEDS: MAGNESIUM HYDROXIDE 30 ML UDC GT PRN (22:00)
[2017-04-23] MEDS: ALBUTEROL FS 2.5 MG/3 ML VIAL.NEB NEB SCH ×4 (02:05→18:49)
[2017-04-23] MEDS: DEXILANT 30 MG GT SCH (05:46)
[2017-04-23] MEDS: BLOOD SUGAR DIAGNOSTIC 1 EACH STRIP IN SCH ×2 (05:46→17:50)
[2017-04-23] MEDS: INSULIN REGULAR, HUMAN 100 UNIT/ML 3 ML VIAL SQ PRN ×2 (05:47→17:54)
[2017-04-23] MEDS: BISACODYL SUPP (10 MG) 10 MG/SUPP.RECT SUPP.RECT RC PRN (06:44)
[2017-04-23 07:43] VITALS: BP 148/79
[2017-04-23] MEDS: ASPIRIN 81 MG TAB.CHEW GT SCH (08:09)
[2017-04-23] MEDS: TRILEPTAL GT SCH ×2 (08:13→21:22)
[2017-04-23] MEDS: LEVETIRACETAM SOL (5 ML) 100 MG/ML UDC GT SCH ×2 (08:13→21:22)
[2017-04-23] MEDS: PROSOURCE / PROSTAT (PYXIS) 30 ML UDC GT SCH ×2 (08:14→17:43)
[2017-04-23] MEDS: CALCIUM CARBONATE 500 MG TAB.CHEW GT SCH ×2 (08:15→17:44)
[2017-04-23] MEDS: ACIDOPHILUS/BULGARICUS 1 EACH TAB.CHEW PO SCH ×3 (08:17→17:50)
[2017-04-23] MEDS: HYDROGEL DRESSING 90 GM TUBE TP SCH ×2 (08:17→21:22)
[2017-04-23] MEDS: BALM TP SCH ×2 (08:18→21:22)
[2017-04-23] MEDS: HYDROGEN PEROXIDE 480 ML BOTTLE TP SCH ×2 (08:18→21:23)
[2017-04-23] MEDS: Z GUARD REMEDY 4 OZ OINT TP SCH ×4 (08:18→21:23)
[2017-04-23] MEDS: VITAMINS A AND D 56.7 GM TUBE TP SCH ×2 (08:19→21:23)
[2017-04-23] MEDS: GLYTROL 1,000 ML BAG GT PRN ×2 (08:25→22:05)
[2017-04-23] MEDS: SENNOSIDES 8.6 MG TABLET GT SCH (21:22)
[2017-04-23] MEDS: MULTIVIT, IRON, MIN NO. 8, FA 1 TAB GT SCH (21:22)
[2017-04-23] MEDS: ASCORBIC ACID 500 MG TABLET GT SCH (21:22)
[2017-04-23 21:38] VITALS: BP 127/67
[2017-04-24] MEDS: ALBUTEROL FS 2.5 MG/3 ML VIAL.NEB NEB SCH ×4 (01:28→20:21)
[2017-04-24] MEDS: DEXILANT 30 MG GT SCH (05:56)
[2017-04-24] MEDS: BLOOD SUGAR DIAGNOSTIC 1 EACH STRIP IN SCH ×2 (05:56→17:44)
[2017-04-24] MEDS: INSULIN REGULAR, HUMAN 100 UNIT/ML 3 ML VIAL SQ PRN ×2 (05:57→18:03)
[2017-04-24 07:41] VITALS: BP 107/65
[2017-04-24] MEDS: ASPIRIN 81 MG TAB.CHEW GT SCH (08:45)
[2017-04-24] MEDS: BALM TP SCH ×2 (08:47→20:40)
[2017-04-24] MEDS: CALCIUM CARBONATE 500 MG TAB.CHEW GT SCH ×2 (08:47→16:46)
[2017-04-24] MEDS: LEVETIRACETAM SOL (5 ML) 100 MG/ML UDC GT SCH ×2 (08:47→20:40)
[2017-04-24] MEDS: TRILEPTAL GT SCH ×2 (08:47→20:40)
[2017-04-24] MEDS: PROSOURCE / PROSTAT (PYXIS) 30 ML UDC GT SCH ×2 (08:47→16:45)
[2017-04-24] MEDS: ACIDOPHILUS/BULGARICUS 1 EACH TAB.CHEW PO SCH ×3 (08:47→16:46)
[2017-04-24] MEDS: HYDROGEL DRESSING 90 GM TUBE TP SCH ×2 (08:47→20:40)
[2017-04-24] MEDS: VITAMINS A AND D 56.7 GM TUBE TP SCH ×2 (08:48→20:41)
[2017-04-24] MEDS: Z GUARD REMEDY 4 OZ OINT TP SCH ×4 (08:48→20:41)
[2017-04-24] MEDS: HYDROGEN PEROXIDE 480 ML BOTTLE TP SCH ×2 (08:48→20:41)
--- NOTE | 2017-04-24 10:08 | NUR ---
Informed by sister Beckie Chu that the business process representative from [employer] is coming today between 11-12 to do a wheelchair evaluation for the resident. She stated that she will be coming around 10:30AM and will be bringing some new gowns for the resident. SW informed her that they can change the resident into her new gown when she comes and the BUILDING MAINTENANCE ENGINEER can then place her into the chris-chair. Beckie agreed with this plan. structural steel worker helper informed the BUILDING MAINTENANCE ENGINEER of the plan and also informed the charge nurse.
--- NOTE | 2017-04-24 12:57 | NUR ---
Shelley from [facility] came to do wheelchair evaluation for resident. Sister Beckie Chu stated that he did the measurements and will keep in touch with her to see if there is anything else that he might need or if eligibility changes. Beckie agreed to keep the secondary social studies teacher posted. She did state that Shelley was going to be on vacation all next week and that she will touch bases with him after that. SW will follow up.
--- NOTE | 2017-04-24 14:30 | NUR ---
INTERDISCIPLINARY TEAM CONFERENCE (IDT) was held today. Resident's sister joe attended meeting today. Dr. Felix and the interdisciplinary team reviewed the current plan of care in detail. New orders were reviewed. New orders were given to do keppra level and trileptal level on thursday.Discussed about the recent seizure on 04/21/17. She said she is happy about the care.
[2017-04-24] MEDS: SENNOSIDES 8.6 MG TABLET GT SCH (20:40)
[2017-04-24] MEDS: MULTIVIT, IRON, MIN NO. 8, FA 1 TAB GT SCH (20:40)
[2017-04-24] MEDS: ASCORBIC ACID 500 MG TABLET GT SCH (20:40)
[2017-04-24] MEDS: GLYTROL 1,000 ML BAG GT PRN (20:43)
[2017-04-24 21:33] VITALS: BP 114/63
[2017-04-25] MEDS: ALBUTEROL FS 2.5 MG/3 ML VIAL.NEB NEB SCH ×4 (02:10→20:09)
[2017-04-25] MEDS: INSULIN REGULAR, HUMAN 100 UNIT/ML 3 ML VIAL SQ PRN (05:45)
[2017-04-25] MEDS: DEXILANT 30 MG GT SCH (05:45)
[2017-04-25] MEDS: BLOOD SUGAR DIAGNOSTIC 1 EACH STRIP IN SCH ×2 (05:45→17:02)
[2017-04-25 07:36] VITALS: BP 109/60
[2017-04-25] MEDS: ACIDOPHILUS/BULGARICUS 1 EACH TAB.CHEW PO SCH ×3 (08:55→17:02)
[2017-04-25] MEDS: ASPIRIN 81 MG TAB.CHEW GT SCH (08:55)
[2017-04-25] MEDS: PROSOURCE / PROSTAT (PYXIS) 30 ML UDC GT SCH ×2 (08:55→17:02)
[2017-04-25] MEDS: TRILEPTAL GT SCH ×2 (08:55→21:00)
[2017-04-25] MEDS: LEVETIRACETAM SOL (5 ML) 100 MG/ML UDC GT SCH ×2 (08:55→21:00)
[2017-04-25] MEDS: CALCIUM CARBONATE 500 MG TAB.CHEW GT SCH ×2 (08:55→17:02)
[2017-04-25] MEDS: BALM TP SCH ×2 (08:56→21:00)
[2017-04-25] MEDS: HYDROGEN PEROXIDE 480 ML BOTTLE TP SCH ×2 (08:56→21:00)
[2017-04-25] MEDS: Z GUARD REMEDY 4 OZ OINT TP SCH ×4 (08:56→21:00)
[2017-04-25] MEDS: HYDROGEL DRESSING 90 GM TUBE TP SCH ×2 (08:56→21:00)
[2017-04-25] MEDS: VITAMINS A AND D 56.7 GM TUBE TP SCH ×2 (08:56→21:00)
[2017-04-25] MEDS: GLYTROL 1,000 ML BAG GT PRN (11:52)
[2017-04-25] MEDS: ASCORBIC ACID 500 MG TABLET GT SCH (21:00)
[2017-04-25] MEDS: MULTIVIT, IRON, MIN NO. 8, FA 1 TAB GT SCH (21:00)
[2017-04-25] MEDS: SENNOSIDES 8.6 MG TABLET GT SCH (21:00)
[2017-04-26] MEDS: GLYTROL 1,000 ML BAG GT PRN ×2 (00:59→14:34)
[2017-04-26] MEDS: ALBUTEROL FS 2.5 MG/3 ML VIAL.NEB NEB SCH ×4 (01:33→19:52)
[2017-04-26] MEDS: DEXILANT 30 MG GT SCH (05:02)
[2017-04-26] MEDS: BLOOD SUGAR DIAGNOSTIC 1 EACH STRIP IN SCH ×2 (05:52→18:27)
[2017-04-26] MEDS: INSULIN REGULAR, HUMAN 100 UNIT/ML 3 ML VIAL SQ PRN ×2 (05:53→18:28)
[2017-04-26 07:49] VITALS: BP 125/69
[2017-04-26] MEDS: VITAMINS A AND D 56.7 GM TUBE TP SCH ×2 (09:00→21:15)
[2017-04-26] MEDS: HYDROGEL DRESSING 90 GM TUBE TP SCH ×2 (09:00→21:13)
[2017-04-26] MEDS: BALM TP SCH ×2 (09:00→21:14)
[2017-04-26] MEDS: Z GUARD REMEDY 4 OZ OINT TP SCH ×4 (09:00→21:15)
[2017-04-26] MEDS: HYDROGEN PEROXIDE 480 ML BOTTLE TP SCH ×2 (09:00→21:15)
[2017-04-26] MEDS: TRILEPTAL GT SCH ×2 (09:22→21:12)
[2017-04-26] MEDS: PROSOURCE / PROSTAT (PYXIS) 30 ML UDC GT SCH ×2 (09:22→16:42)
[2017-04-26] MEDS: CALCIUM CARBONATE 500 MG TAB.CHEW GT SCH ×2 (09:22→16:42)
[2017-04-26] MEDS: LEVETIRACETAM SOL (5 ML) 100 MG/ML UDC GT SCH ×2 (09:22→21:12)
[2017-04-26] MEDS: ASPIRIN 81 MG TAB.CHEW GT SCH (09:22)
[2017-04-26] MEDS: ACIDOPHILUS/BULGARICUS 1 EACH TAB.CHEW PO SCH ×3 (09:22→16:42)
[2017-04-26 19:54] VITALS: BP 111/70
[2017-04-26] MEDS: MULTIVIT, IRON, MIN NO. 8, FA 1 TAB GT SCH (21:13)
[2017-04-26] MEDS: SENNOSIDES 8.6 MG TABLET GT SCH (21:13)
[2017-04-26] MEDS: ASCORBIC ACID 500 MG TABLET GT SCH (21:13)
[2017-04-27] MEDS: ALBUTEROL FS 2.5 MG/3 ML VIAL.NEB NEB SCH ×4 (00:56→20:27)
[2017-04-27] MEDS: DEXILANT 30 MG GT SCH (06:01)
[2017-04-27] MEDS: BLOOD SUGAR DIAGNOSTIC 1 EACH STRIP IN SCH ×2 (06:01→18:26)
[2017-04-27 08:30] VITALS: BP 119/60
[2017-04-27] MEDS: ASPIRIN 81 MG TAB.CHEW GT SCH (08:53)
[2017-04-27] MEDS: TRILEPTAL GT SCH ×2 (08:53→21:10)
[2017-04-27] MEDS: ACIDOPHILUS/BULGARICUS 1 EACH TAB.CHEW PO SCH ×3 (08:53→16:45)
[2017-04-27] MEDS: LEVETIRACETAM SOL (5 ML) 100 MG/ML UDC GT SCH ×2 (08:53→21:10)
[2017-04-27] MEDS: PROSOURCE / PROSTAT (PYXIS) 30 ML UDC GT SCH ×2 (08:53→16:45)
[2017-04-27] MEDS: HYDROGEL DRESSING 90 GM TUBE TP SCH ×2 (08:53→21:11)
[2017-04-27] MEDS: CALCIUM CARBONATE 500 MG TAB.CHEW GT SCH ×2 (08:53→16:45)
[2017-04-27] MEDS: VITAMINS A AND D 56.7 GM TUBE TP SCH ×2 (08:54→21:11)
[2017-04-27] MEDS: HYDROGEN PEROXIDE 480 ML BOTTLE TP SCH ×2 (08:54→21:11)
[2017-04-27] MEDS: BALM TP SCH ×2 (08:54→21:11)
[2017-04-27] MEDS: Z GUARD REMEDY 4 OZ OINT TP SCH ×4 (08:54→21:11)
[2017-04-27] MEDS: GLYTROL 1,000 ML BAG GT PRN (11:58)
[2017-04-27] MEDS: INSULIN REGULAR, HUMAN 100 UNIT/ML 3 ML VIAL SQ PRN (18:27)
[2017-04-27 19:55] VITALS: BP 108/71
[2017-04-27] MEDS: ASCORBIC ACID 500 MG TABLET GT SCH (21:10)
[2017-04-27] MEDS: SENNOSIDES 8.6 MG TABLET GT SCH (21:10)
[2017-04-27] MEDS: MULTIVIT, IRON, MIN NO. 8, FA 1 TAB GT SCH (21:10)
[2017-04-28] MEDS: ALBUTEROL FS 2.5 MG/3 ML VIAL.NEB NEB SCH ×4 (02:06→19:47)
[2017-04-28] MEDS: DEXILANT 30 MG GT SCH (05:56)
[2017-04-28] MEDS: BLOOD SUGAR DIAGNOSTIC 1 EACH STRIP IN SCH ×2 (05:56→18:36)
[2017-04-28] MEDS: LEVETIRACETAM SOL (5 ML) 100 MG/ML UDC GT SCH ×2 (09:34→21:03)
[2017-04-28] MEDS: ACIDOPHILUS/BULGARICUS 1 EACH TAB.CHEW PO SCH ×3 (09:34→17:35)
[2017-04-28] MEDS: TRILEPTAL GT SCH ×2 (09:34→21:03)
[2017-04-28] MEDS: HYDROGEL DRESSING 90 GM TUBE TP SCH ×2 (09:34→21:03)
[2017-04-28] MEDS: PROSOURCE / PROSTAT (PYXIS) 30 ML UDC GT SCH ×2 (09:34→17:33)
[2017-04-28] MEDS: BALM TP SCH ×2 (09:34→21:03)
[2017-04-28] MEDS: ASPIRIN 81 MG TAB.CHEW GT SCH (09:34)
[2017-04-28] MEDS: CALCIUM CARBONATE 500 MG TAB.CHEW GT SCH ×2 (09:34→17:35)
[2017-04-28] MEDS: Z GUARD REMEDY 4 OZ OINT TP SCH ×4 (09:35→21:03)
[2017-04-28] MEDS: HYDROGEN PEROXIDE 480 ML BOTTLE TP SCH ×2 (09:35→21:03)
[2017-04-28] MEDS: VITAMINS A AND D 56.7 GM TUBE TP SCH ×2 (09:35→21:03)
[2017-04-28 09:59] VITALS: BP 110/52
[2017-04-28] MEDS: INSULIN REGULAR, HUMAN 100 UNIT/ML 3 ML VIAL SQ PRN (18:37)
[2017-04-28] MEDS: GLYTROL 1,000 ML BAG GT PRN (19:08)
[2017-04-28 20:03] VITALS: BP 124/69
[2017-04-28] MEDS: SENNOSIDES 8.6 MG TABLET GT SCH (21:03)
[2017-04-28] MEDS: MULTIVIT, IRON, MIN NO. 8, FA 1 TAB GT SCH (21:03)
[2017-04-28] MEDS: ASCORBIC ACID 500 MG TABLET GT SCH (21:03)
[2017-04-29] MEDS: ALBUTEROL FS 2.5 MG/3 ML VIAL.NEB NEB SCH ×4 (00:36→19:37)
[2017-04-29] MEDS: BLOOD SUGAR DIAGNOSTIC 1 EACH STRIP IN SCH ×2 (05:37→17:08)
[2017-04-29] MEDS: DEXILANT 30 MG GT SCH (05:37)
[2017-04-29 08:04] VITALS: BP 110/70
[2017-04-29] MEDS: BALM TP SCH ×2 (09:00→21:47)
[2017-04-29] MEDS: HYDROGEL DRESSING 90 GM TUBE TP SCH ×2 (09:00→21:46)
[2017-04-29] MEDS: VITAMINS A AND D 56.7 GM TUBE TP SCH ×2 (09:00→21:47)
[2017-04-29] MEDS: Z GUARD REMEDY 4 OZ OINT TP SCH ×4 (09:00→21:47)
[2017-04-29] MEDS: HYDROGEN PEROXIDE 480 ML BOTTLE TP SCH ×2 (09:00→21:47)
[2017-04-29] MEDS: ASPIRIN 81 MG TAB.CHEW GT SCH (09:47)
[2017-04-29] MEDS: LEVETIRACETAM SOL (5 ML) 100 MG/ML UDC GT SCH ×2 (09:49→20:41)
[2017-04-29] MEDS: TRILEPTAL GT SCH ×2 (09:49→20:41)
[2017-04-29] MEDS: PROSOURCE / PROSTAT (PYXIS) 30 ML UDC GT SCH ×2 (09:50→17:08)
[2017-04-29] MEDS: CALCIUM CARBONATE 500 MG TAB.CHEW GT SCH ×2 (09:50→17:08)
[2017-04-29] MEDS: ACIDOPHILUS/BULGARICUS 1 EACH TAB.CHEW PO SCH ×3 (09:51→17:08)
[2017-04-29] MEDS: GLYTROL 1,000 ML BAG GT PRN (14:41)
[2017-04-29] MEDS: INSULIN REGULAR, HUMAN 100 UNIT/ML 3 ML VIAL SQ PRN (17:09)
--- NOTE | 2017-04-29 19:00 | NUR ---
Seen by Anna Vargas NP for EUGENIE CanelaO given at this time. Result of Keppra and Trileptal level still pending. No seizure episode.
[2017-04-29 20:02] VITALS: BP 228/72
[2017-04-29] MEDS: SENNOSIDES 8.6 MG TABLET GT SCH (20:41)
[2017-04-29] MEDS: MULTIVIT, IRON, MIN NO. 8, FA 1 TAB GT SCH (20:41)
[2017-04-29] MEDS: ASCORBIC ACID 500 MG TABLET GT SCH (20:41)
[2017-04-30] MEDS: ALBUTEROL FS 2.5 MG/3 ML VIAL.NEB NEB SCH ×4 (00:45→19:56)
[2017-04-30] MEDS: GLYTROL 1,000 ML BAG GT PRN ×2 (05:46→23:22)
[2017-04-30] MEDS: BLOOD SUGAR DIAGNOSTIC 1 EACH STRIP IN SCH ×2 (05:46→18:38)
[2017-04-30] MEDS: DEXILANT 30 MG GT SCH (05:46)
[2017-04-30] MEDS: INSULIN REGULAR, HUMAN 100 UNIT/ML 3 ML VIAL SQ PRN (05:47)
[2017-04-30] MEDS: BISACODYL SUPP (10 MG) 10 MG/SUPP.RECT SUPP.RECT RC PRN ×2 (06:59→20:57)
[2017-04-30 07:35] VITALS: BP 139/80
[2017-04-30] MEDS: HYDROGEN PEROXIDE 480 ML BOTTLE TP SCH ×2 (09:00→20:57)
[2017-04-30] MEDS: Z GUARD REMEDY 4 OZ OINT TP SCH ×3 (09:00→20:57)
[2017-04-30] MEDS: CALCIUM CARBONATE 500 MG TAB.CHEW GT SCH ×2 (09:00→17:00)
[2017-04-30] MEDS: TRILEPTAL GT SCH ×2 (09:00→20:57)
[2017-04-30] MEDS: ASPIRIN 81 MG TAB.CHEW GT SCH (09:00)
[2017-04-30] MEDS: VITAMINS A AND D 56.7 GM TUBE TP SCH ×2 (09:00→20:57)
[2017-04-30] MEDS: LEVETIRACETAM SOL (5 ML) 100 MG/ML UDC GT SCH ×2 (09:00→20:57)
[2017-04-30] MEDS: PROSOURCE / PROSTAT (PYXIS) 30 ML UDC GT SCH ×2 (09:00→17:00)
[2017-04-30] MEDS: ACIDOPHILUS/BULGARICUS 1 EACH TAB.CHEW PO SCH ×3 (09:00→17:00)
[2017-04-30] MEDS: BALM TP SCH ×2 (09:00→20:57)
[2017-04-30] MEDS: HYDROGEL DRESSING 90 GM TUBE TP SCH ×2 (09:00→20:57)
[2017-04-30] MEDS: MAGNESIUM HYDROXIDE 30 ML UDC GT PRN (18:43)
[2017-04-30 20:00] VITALS: BP 114/61
[2017-04-30] MEDS: ASCORBIC ACID 500 MG TABLET GT SCH (20:57)
[2017-04-30] MEDS: SENNOSIDES 8.6 MG TABLET GT SCH (20:57)
[2017-04-30] MEDS: MULTIVIT, IRON, MIN NO. 8, FA 1 TAB GT SCH (20:57)
[2017-04-30] MEDS: DOCUSATE SODIUM LIQ 100 MG/10 ML UDC GT PRN (23:23)
[2017-05-01] MEDS: ALBUTEROL FS 2.5 MG/3 ML VIAL.NEB NEB SCH ×4 (02:05→19:24)
[2017-05-01] MEDS: BLOOD SUGAR DIAGNOSTIC 1 EACH STRIP IN SCH ×2 (05:25→17:11)
[2017-05-01] MEDS: DEXILANT 30 MG GT SCH (05:25)
[2017-05-01] MEDS: INSULIN REGULAR, HUMAN 100 UNIT/ML 3 ML VIAL SQ PRN (05:25)
[2017-05-01] MEDS: PROSOURCE / PROSTAT (PYXIS) 30 ML UDC GT SCH ×2 (09:54→16:50)
[2017-05-01] MEDS: ASPIRIN 81 MG TAB.CHEW GT SCH (09:54)
[2017-05-01] MEDS: ACIDOPHILUS/BULGARICUS 1 EACH TAB.CHEW PO SCH ×3 (09:54→16:50)
[2017-05-01] MEDS: LEVETIRACETAM SOL (5 ML) 100 MG/ML UDC GT SCH ×2 (09:54→20:27)
[2017-05-01] MEDS: CALCIUM CARBONATE 500 MG TAB.CHEW GT SCH ×2 (09:54→16:50)
[2017-05-01] MEDS: TRILEPTAL GT SCH ×2 (09:54→20:27)
[2017-05-01] MEDS: HYDROGEN PEROXIDE 480 ML BOTTLE TP SCH ×2 (09:55→20:28)
[2017-05-01] MEDS: VITAMINS A AND D 56.7 GM TUBE TP SCH ×2 (09:55→20:28)
[2017-05-01] MEDS: Z GUARD REMEDY 4 OZ OINT TP SCH ×2 (09:55→20:28)
[2017-05-01] MEDS: BALM TP SCH ×2 (09:55→20:28)
[2017-05-01] MEDS: HYDROGEL DRESSING 90 GM TUBE TP SCH ×2 (10:00→20:27)
[2017-05-01] MEDS ORDERED: HYDROGEL DRESSING 90 GM TUBE TP PRN (10:30)
[2017-05-01] MEDS: GLYTROL 1,000 ML BAG GT PRN (17:11)
--- NOTE | 2017-05-01 18:47 | NUR ---
Called laboratory spoken with Elena to find out result of Keppra level collected on 04/27/17. According to staff she will call [facility] to follow-up the result.
--- NOTE | 2017-05-01 18:53 | NUR ---
Receive a call from [facility] lab regarding pending Keppra level, according to Crystal, specimen was sent to [facility] and will take another 3 days. Result should be ready by Thursday next week.
[2017-05-01 20:00] VITALS: BP 135/77
[2017-05-01] MEDS: ASCORBIC ACID 500 MG TABLET GT SCH (20:27)
[2017-05-01] MEDS: MULTIVIT, IRON, MIN NO. 8, FA 1 TAB GT SCH (20:27)
[2017-05-01] MEDS: SENNOSIDES 8.6 MG TABLET GT SCH (20:27)
[2017-05-01] MEDS: MAGNESIUM HYDROXIDE 30 ML UDC GT PRN (20:28)
[2017-05-02] MEDS: ALBUTEROL FS 2.5 MG/3 ML VIAL.NEB NEB SCH ×4 (02:01→19:33)
[2017-05-02] MEDS: INSULIN REGULAR, HUMAN 100 UNIT/ML 3 ML VIAL SQ PRN (05:25)
[2017-05-02] MEDS: DEXILANT 30 MG GT SCH (05:25)
[2017-05-02] MEDS: BLOOD SUGAR DIAGNOSTIC 1 EACH STRIP IN SCH ×2 (05:25→17:21)
[2017-05-02 07:31] VITALS: BP 110/67
[2017-05-02] MEDS: VITAMINS A AND D 56.7 GM TUBE TP SCH ×2 (09:13→20:30)
[2017-05-02] MEDS: ACIDOPHILUS/BULGARICUS 1 EACH TAB.CHEW PO SCH ×3 (09:13→17:21)
[2017-05-02] MEDS: BALM TP SCH ×2 (09:13→20:30)
[2017-05-02] MEDS: PROSOURCE / PROSTAT (PYXIS) 30 ML UDC GT SCH ×2 (09:13→17:21)
[2017-05-02] MEDS: LEVETIRACETAM SOL (5 ML) 100 MG/ML UDC GT SCH ×2 (09:13→20:30)
[2017-05-02] MEDS: HYDROGEL DRESSING 90 GM TUBE TP SCH ×2 (09:13→20:30)
[2017-05-02] MEDS: CALCIUM CARBONATE 500 MG TAB.CHEW GT SCH ×2 (09:13→17:21)
[2017-05-02] MEDS: Z GUARD REMEDY 4 OZ OINT TP SCH ×2 (09:13→20:30)
[2017-05-02] MEDS: HYDROGEN PEROXIDE 480 ML BOTTLE TP SCH ×2 (09:13→20:30)
[2017-05-02] MEDS: TRILEPTAL GT SCH ×2 (09:13→20:30)
[2017-05-02] MEDS: ASPIRIN 81 MG TAB.CHEW GT SCH (09:13)
--- NOTE | 2017-05-02 10:30 | NUR ---
Seen and examined by Dr. Montaño, made aware of Lamictal level 28 and pending Keppra level. No seizure episode for the past week. NNO given.
[2017-05-02] MEDS: GLYTROL 1,000 ML BAG GT PRN (15:03)
[2017-05-02 19:36] VITALS: BP 141/65
[2017-05-02] MEDS: SENNOSIDES 8.6 MG TABLET GT SCH (20:30)
[2017-05-02] MEDS: MULTIVIT, IRON, MIN NO. 8, FA 1 TAB GT SCH (20:30)
[2017-05-02] MEDS: ASCORBIC ACID 500 MG TABLET GT SCH (20:30)
[2017-05-02] MEDS: MAGNESIUM HYDROXIDE 30 ML UDC GT PRN (20:31)
[2017-05-03] MEDS: ALBUTEROL FS 2.5 MG/3 ML VIAL.NEB NEB SCH ×4 (01:52→20:00)
[2017-05-03] MEDS: BLOOD SUGAR DIAGNOSTIC 1 EACH STRIP IN SCH ×2 (05:15→18:06)
[2017-05-03] MEDS: INSULIN REGULAR, HUMAN 100 UNIT/ML 3 ML VIAL SQ PRN ×2 (05:15→18:07)
[2017-05-03] MEDS: DEXILANT 30 MG GT SCH (05:15)
[2017-05-03 07:38] VITALS: BP 123/65
[2017-05-03] MEDS: ASPIRIN 81 MG TAB.CHEW GT SCH (09:21)
[2017-05-03] MEDS: TRILEPTAL GT SCH ×2 (09:22→21:59)
[2017-05-03] MEDS: CALCIUM CARBONATE 500 MG TAB.CHEW GT SCH ×2 (09:22→17:17)
[2017-05-03] MEDS: BALM TP SCH ×2 (09:22→21:59)
[2017-05-03] MEDS: LEVETIRACETAM SOL (5 ML) 100 MG/ML UDC GT SCH ×2 (09:22→21:59)
[2017-05-03] MEDS: PROSOURCE / PROSTAT (PYXIS) 30 ML UDC GT SCH ×2 (09:22→17:17)
[2017-05-03] MEDS: HYDROGEL DRESSING 90 GM TUBE TP SCH ×2 (09:22→21:59)
[2017-05-03] MEDS: ACIDOPHILUS/BULGARICUS 1 EACH TAB.CHEW PO SCH ×3 (09:22→17:17)
[2017-05-03] MEDS: Z GUARD REMEDY 4 OZ OINT TP SCH ×2 (09:23→21:00)
[2017-05-03] MEDS: HYDROGEN PEROXIDE 480 ML BOTTLE TP SCH ×2 (09:23→22:00)
[2017-05-03] MEDS: VITAMINS A AND D 56.7 GM TUBE TP SCH ×2 (09:23→21:00)
[2017-05-03] MEDS: GLYTROL 1,000 ML BAG GT PRN (11:12)
[2017-05-03 19:28] VITALS: BP 131/62
[2017-05-03] MEDS: SENNOSIDES 8.6 MG TABLET GT SCH (21:59)
[2017-05-03] MEDS: MULTIVIT, IRON, MIN NO. 8, FA 1 TAB GT SCH (21:59)
[2017-05-03] MEDS: ASCORBIC ACID 500 MG TABLET GT SCH (21:59)
[2017-05-04] MEDS: GLYTROL 1,000 ML BAG GT PRN ×2 (00:09→16:08)
[2017-05-04] MEDS: ALBUTEROL FS 2.5 MG/3 ML VIAL.NEB NEB SCH ×4 (01:43→19:43)
[2017-05-04] MEDS: BLOOD SUGAR DIAGNOSTIC 1 EACH STRIP IN SCH ×2 (06:18→17:43)
[2017-05-04] MEDS: INSULIN REGULAR, HUMAN 100 UNIT/ML 3 ML VIAL SQ PRN ×2 (06:18→17:43)
[2017-05-04] MEDS: DEXILANT 30 MG GT SCH (06:18)
[2017-05-04 07:39] VITALS: BP 120/82
[2017-05-04] MEDS: LEVETIRACETAM SOL (5 ML) 100 MG/ML UDC GT SCH ×2 (08:44→20:04)
[2017-05-04] MEDS: TRILEPTAL GT SCH ×2 (08:44→20:04)
[2017-05-04] MEDS: ASPIRIN 81 MG TAB.CHEW GT SCH (08:44)
[2017-05-04] MEDS: HYDROGEL DRESSING 90 GM TUBE TP SCH ×2 (08:44→20:04)
[2017-05-04] MEDS: PROSOURCE / PROSTAT (PYXIS) 30 ML UDC GT SCH ×2 (08:44→16:26)
[2017-05-04] MEDS: Z GUARD REMEDY 4 OZ OINT TP SCH ×2 (08:44→20:04)
[2017-05-04] MEDS: CALCIUM CARBONATE 500 MG TAB.CHEW GT SCH ×2 (08:44→16:26)
[2017-05-04] MEDS: ACIDOPHILUS/BULGARICUS 1 EACH TAB.CHEW PO SCH ×3 (08:44→16:26)
[2017-05-04] MEDS: HYDROGEN PEROXIDE 480 ML BOTTLE TP SCH ×2 (08:44→20:04)
[2017-05-04] MEDS: BALM TP SCH ×2 (08:44→20:04)
[2017-05-04] MEDS: VITAMINS A AND D 56.7 GM TUBE TP SCH ×2 (08:45→20:05)
[2017-05-04] MEDS: SENNOSIDES 8.6 MG TABLET GT SCH (20:04)
[2017-05-04] MEDS: MULTIVIT, IRON, MIN NO. 8, FA 1 TAB GT SCH (20:04)
[2017-05-04] MEDS: ASCORBIC ACID 500 MG TABLET GT SCH (20:04)
[2017-05-04 20:49] VITALS: BP 132/70
[2017-05-05] MEDS: ALBUTEROL FS 2.5 MG/3 ML VIAL.NEB NEB SCH ×4 (00:38→19:39)
[2017-05-05] MEDS: DEXILANT 30 MG GT SCH (05:41)
[2017-05-05] MEDS: BLOOD SUGAR DIAGNOSTIC 1 EACH STRIP IN SCH ×2 (05:42→17:34)
[2017-05-05 07:20] VITALS: BP 122/82
[2017-05-05] MEDS: ASPIRIN 81 MG TAB.CHEW GT SCH (08:30)
[2017-05-05] MEDS: TRILEPTAL GT SCH ×2 (08:30→20:16)
[2017-05-05] MEDS: LEVETIRACETAM SOL (5 ML) 100 MG/ML UDC GT SCH ×2 (08:30→20:16)
[2017-05-05] MEDS: ACIDOPHILUS/BULGARICUS 1 EACH TAB.CHEW PO SCH ×3 (08:31→17:09)
[2017-05-05] MEDS: CALCIUM CARBONATE 500 MG TAB.CHEW GT SCH ×2 (08:31→17:09)
[2017-05-05] MEDS: PROSOURCE / PROSTAT (PYXIS) 30 ML UDC GT SCH ×2 (08:31→17:09)
[2017-05-05] MEDS: HYDROGEN PEROXIDE 480 ML BOTTLE TP SCH ×2 (08:33→20:18)
[2017-05-05] MEDS: HYDROGEL DRESSING 90 GM TUBE TP SCH ×2 (08:33→20:18)
[2017-05-05] MEDS: Z GUARD REMEDY 4 OZ OINT TP SCH ×2 (08:33→20:18)
[2017-05-05] MEDS: VITAMINS A AND D 56.7 GM TUBE TP SCH ×2 (08:33→20:18)
[2017-05-05] MEDS: BALM TP SCH ×2 (08:33→20:18)
[2017-05-05] MEDS: GLYTROL 1,000 ML BAG GT PRN (11:10)
[2017-05-05] MEDS: INSULIN REGULAR, HUMAN 100 UNIT/ML 3 ML VIAL SQ PRN (17:34)
[2017-05-05 20:00] VITALS: BP 147/64
[2017-05-05] MEDS: ASCORBIC ACID 500 MG TABLET GT SCH (20:16)
[2017-05-05] MEDS: MULTIVIT, IRON, MIN NO. 8, FA 1 TAB GT SCH (20:16)
[2017-05-05] MEDS: SENNOSIDES 8.6 MG TABLET GT SCH (20:16)
[2017-05-06] MEDS: ALBUTEROL FS 2.5 MG/3 ML VIAL.NEB NEB SCH ×4 (01:52→20:11)
[2017-05-06] MEDS: BLOOD SUGAR DIAGNOSTIC 1 EACH STRIP IN SCH ×2 (06:00→17:48)
[2017-05-06] MEDS: DEXILANT 30 MG GT SCH (06:00)
[2017-05-06] MEDS: GLYTROL 1,000 ML BAG GT PRN ×2 (06:32→21:37)
[2017-05-06 07:40] VITALS: BP 110/69
[2017-05-06] MEDS: Z GUARD REMEDY 4 OZ OINT TP SCH ×2 (09:00→20:13)
[2017-05-06] MEDS: HYDROGEN PEROXIDE 480 ML BOTTLE TP SCH ×2 (09:00→20:13)
[2017-05-06] MEDS: VITAMINS A AND D 56.7 GM TUBE TP SCH ×2 (09:00→20:13)
[2017-05-06] MEDS: BALM TP SCH ×2 (09:00→20:13)
[2017-05-06] MEDS: HYDROGEL DRESSING 90 GM TUBE TP SCH ×2 (09:00→20:12)
[2017-05-06] MEDS: LEVETIRACETAM SOL (5 ML) 100 MG/ML UDC GT SCH ×2 (09:02→20:12)
[2017-05-06] MEDS: TRILEPTAL GT SCH ×2 (09:02→20:12)
[2017-05-06] MEDS: ASPIRIN 81 MG TAB.CHEW GT SCH (09:02)
[2017-05-06] MEDS: PROSOURCE / PROSTAT (PYXIS) 30 ML UDC GT SCH ×2 (09:02→17:48)
[2017-05-06] MEDS: ACIDOPHILUS/BULGARICUS 1 EACH TAB.CHEW PO SCH ×3 (09:03→17:48)
[2017-05-06] MEDS: CALCIUM CARBONATE 500 MG TAB.CHEW GT SCH ×2 (09:03→17:48)
[2017-05-06] MEDS: MULTIVIT, IRON, MIN NO. 8, FA 1 TAB GT SCH (20:12)
[2017-05-06] MEDS: SENNOSIDES 8.6 MG TABLET GT SCH (20:12)
[2017-05-06] MEDS: ASCORBIC ACID 500 MG TABLET GT SCH (20:12)
[2017-05-06 20:27] VITALS: BP 162/78
[2017-05-07] MEDS: ALBUTEROL FS 2.5 MG/3 ML VIAL.NEB NEB SCH ×4 (00:34→18:57)
[2017-05-07] MEDS: DEXILANT 30 MG GT SCH (05:59)
[2017-05-07] MEDS: BLOOD SUGAR DIAGNOSTIC 1 EACH STRIP IN SCH ×2 (05:59→18:00)
[2017-05-07 07:34] VITALS: BP 136/65
[2017-05-07] MEDS: ASPIRIN 81 MG TAB.CHEW GT SCH (09:00)
[2017-05-07] MEDS: LEVETIRACETAM SOL (5 ML) 100 MG/ML UDC GT SCH ×2 (09:00→20:50)
[2017-05-07] MEDS: ACIDOPHILUS/BULGARICUS 1 EACH TAB.CHEW PO SCH ×3 (09:00→18:00)
[2017-05-07] MEDS: VITAMINS A AND D 56.7 GM TUBE TP SCH ×2 (09:00→20:51)
[2017-05-07] MEDS: HYDROGEL DRESSING 90 GM TUBE TP SCH ×2 (09:00→20:50)
[2017-05-07] MEDS: BALM TP SCH ×2 (09:00→20:50)
[2017-05-07] MEDS: PROSOURCE / PROSTAT (PYXIS) 30 ML UDC GT SCH ×2 (09:00→17:59)
[2017-05-07] MEDS: Z GUARD REMEDY 4 OZ OINT TP SCH ×2 (09:00→20:51)
[2017-05-07] MEDS: TRILEPTAL GT SCH ×2 (09:00→20:50)
[2017-05-07] MEDS: CALCIUM CARBONATE 500 MG TAB.CHEW GT SCH ×2 (09:00→17:59)
[2017-05-07] MEDS: HYDROGEN PEROXIDE 480 ML BOTTLE TP SCH ×2 (09:00→20:51)
[2017-05-07] MEDS: GLYTROL 1,000 ML BAG GT PRN (18:00)
[2017-05-07 19:30] VITALS: BP 171/65
[2017-05-07 19:40] VITALS: BP 116/65
[2017-05-07] MEDS: MULTIVIT, IRON, MIN NO. 8, FA 1 TAB GT SCH (20:50)
[2017-05-07] MEDS: ASCORBIC ACID 500 MG TABLET GT SCH (20:50)
[2017-05-07] MEDS: SENNOSIDES 8.6 MG TABLET GT SCH (20:50)
[2017-05-07] MEDS: MAGNESIUM HYDROXIDE 30 ML UDC GT PRN (20:51)
[2017-05-08] MEDS: ALBUTEROL FS 2.5 MG/3 ML VIAL.NEB NEB SCH ×4 (01:29→20:19)
[2017-05-08] MEDS: INSULIN REGULAR, HUMAN 100 UNIT/ML 3 ML VIAL SQ PRN (05:22)
[2017-05-08] MEDS: DEXILANT 30 MG GT SCH (05:22)
[2017-05-08] MEDS: BLOOD SUGAR DIAGNOSTIC 1 EACH STRIP IN SCH ×2 (05:22→17:33)
[2017-05-08] MEDS: BISACODYL SUPP (10 MG) 10 MG/SUPP.RECT SUPP.RECT RC PRN (05:22)
[2017-05-08 07:35] VITALS: BP 129/81
[2017-05-08] MEDS: ASPIRIN 81 MG TAB.CHEW GT SCH (09:20)
[2017-05-08] MEDS: PROSOURCE / PROSTAT (PYXIS) 30 ML UDC GT SCH ×2 (09:20→17:33)
[2017-05-08] MEDS: HYDROGEL DRESSING 90 GM TUBE TP SCH ×2 (09:20→20:53)
[2017-05-08] MEDS: TRILEPTAL GT SCH ×2 (09:20→20:53)
[2017-05-08] MEDS: GLYTROL 1,000 ML BAG GT PRN ×2 (09:20→23:53)
[2017-05-08] MEDS: ACIDOPHILUS/BULGARICUS 1 EACH TAB.CHEW PO SCH ×3 (09:20→17:33)
[2017-05-08] MEDS: LEVETIRACETAM SOL (5 ML) 100 MG/ML UDC GT SCH ×2 (09:20→20:53)
[2017-05-08] MEDS: CALCIUM CARBONATE 500 MG TAB.CHEW GT SCH ×2 (09:20→17:33)
[2017-05-08] MEDS: BALM TP SCH ×2 (09:21→20:53)
[2017-05-08] MEDS: Z GUARD REMEDY 4 OZ OINT TP SCH ×2 (09:21→20:53)
[2017-05-08] MEDS: VITAMINS A AND D 56.7 GM TUBE TP SCH ×2 (09:21→20:53)
[2017-05-08] MEDS: HYDROGEN PEROXIDE 480 ML BOTTLE TP SCH ×2 (09:21→20:53)
[2017-05-08 20:19] VITALS: BP 105/58
[2017-05-08] MEDS: ASCORBIC ACID 500 MG TABLET GT SCH (20:53)
[2017-05-08] MEDS: SENNOSIDES 8.6 MG TABLET GT SCH (20:53)
[2017-05-08] MEDS: MULTIVIT, IRON, MIN NO. 8, FA 1 TAB GT SCH (20:53)
[2017-05-09] MEDS: ALBUTEROL FS 2.5 MG/3 ML VIAL.NEB NEB SCH ×4 (02:02→19:19)
[2017-05-09] MEDS: MAGNESIUM HYDROXIDE 30 ML UDC GT PRN ×2 (05:17→20:33)
[2017-05-09] MEDS: DEXILANT 30 MG GT SCH (05:17)
[2017-05-09] MEDS: INSULIN REGULAR, HUMAN 100 UNIT/ML 3 ML VIAL SQ PRN (05:17)
[2017-05-09] MEDS: BLOOD SUGAR DIAGNOSTIC 1 EACH STRIP IN SCH ×2 (05:17→17:32)
[2017-05-09 07:31] VITALS: BP 136/70
[2017-05-09] MEDS: PROSOURCE / PROSTAT (PYXIS) 30 ML UDC GT SCH ×2 (09:09→17:32)
[2017-05-09] MEDS: ASPIRIN 81 MG TAB.CHEW GT SCH (09:09)
[2017-05-09] MEDS: TRILEPTAL GT SCH ×2 (09:09→20:33)
[2017-05-09] MEDS: BALM TP SCH ×2 (09:09→20:33)
[2017-05-09] MEDS: HYDROGEN PEROXIDE 480 ML BOTTLE TP SCH ×2 (09:09→20:33)
[2017-05-09] MEDS: Z GUARD REMEDY 4 OZ OINT TP SCH ×2 (09:09→20:33)
[2017-05-09] MEDS: LEVETIRACETAM SOL (5 ML) 100 MG/ML UDC GT SCH ×2 (09:09→20:33)
[2017-05-09] MEDS: HYDROGEL DRESSING 90 GM TUBE TP SCH ×2 (09:09→20:33)
[2017-05-09] MEDS: ACIDOPHILUS/BULGARICUS 1 EACH TAB.CHEW PO SCH ×3 (09:09→17:32)
[2017-05-09] MEDS: CALCIUM CARBONATE 500 MG TAB.CHEW GT SCH ×2 (09:09→17:32)
[2017-05-09] MEDS: VITAMINS A AND D 56.7 GM TUBE TP SCH ×2 (09:10→20:33)
[2017-05-09] MEDS: GLYTROL 1,000 ML BAG GT PRN (18:15)
[2017-05-09 19:35] VITALS: BP 123/71
[2017-05-09] MEDS: ASCORBIC ACID 500 MG TABLET GT SCH (20:33)
[2017-05-09] MEDS: MULTIVIT, IRON, MIN NO. 8, FA 1 TAB GT SCH (20:33)
[2017-05-09] MEDS: SENNOSIDES 8.6 MG TABLET GT SCH (20:33)
[2017-05-10] MEDS: ALBUTEROL FS 2.5 MG/3 ML VIAL.NEB NEB SCH ×4 (02:06→19:32)
[2017-05-10] MEDS: DEXILANT 30 MG GT SCH (05:19)
[2017-05-10] MEDS: BLOOD SUGAR DIAGNOSTIC 1 EACH STRIP IN SCH ×2 (05:19→17:49)
[2017-05-10] MEDS: BISACODYL SUPP (10 MG) 10 MG/SUPP.RECT SUPP.RECT RC PRN (05:20)
[2017-05-10] MEDS: INSULIN REGULAR, HUMAN 100 UNIT/ML 3 ML VIAL SQ PRN (05:21)
[2017-05-10 08:03] VITALS: BP 137/77
[2017-05-10] MEDS: Z GUARD REMEDY 4 OZ OINT TP SCH ×2 (08:42→21:00)
[2017-05-10] MEDS: VITAMINS A AND D 56.7 GM TUBE TP SCH ×2 (08:42→21:00)
[2017-05-10] MEDS: ASPIRIN 81 MG TAB.CHEW GT SCH (08:42)
[2017-05-10] MEDS: HYDROGEN PEROXIDE 480 ML BOTTLE TP SCH ×2 (08:42→21:00)
[2017-05-10] MEDS: CALCIUM CARBONATE 500 MG TAB.CHEW GT SCH ×2 (08:42→17:49)
[2017-05-10] MEDS: TRILEPTAL GT SCH ×2 (08:42→21:00)
[2017-05-10] MEDS: HYDROGEL DRESSING 90 GM TUBE TP SCH ×2 (08:42→21:00)
[2017-05-10] MEDS: LEVETIRACETAM SOL (5 ML) 100 MG/ML UDC GT SCH ×2 (08:42→21:00)
[2017-05-10] MEDS: ACIDOPHILUS/BULGARICUS 1 EACH TAB.CHEW PO SCH ×3 (08:42→17:49)
[2017-05-10] MEDS: PROSOURCE / PROSTAT (PYXIS) 30 ML UDC GT SCH ×2 (08:42→17:49)
[2017-05-10] MEDS: BALM TP SCH ×2 (08:42→21:00)
[2017-05-10] MEDS: GLYTROL 1,000 ML BAG GT PRN (13:10)
[2017-05-10 19:56] VITALS: BP 127/77
[2017-05-10] MEDS: ASCORBIC ACID 500 MG TABLET GT SCH (21:00)
[2017-05-10] MEDS: MULTIVIT, IRON, MIN NO. 8, FA 1 TAB GT SCH (21:00)
[2017-05-10] MEDS: SENNOSIDES 8.6 MG TABLET GT SCH (21:00)
[2017-05-11] MEDS: ALBUTEROL FS 2.5 MG/3 ML VIAL.NEB NEB SCH ×4 (02:06→19:30)
[2017-05-11] MEDS: INSULIN REGULAR, HUMAN 100 UNIT/ML 3 ML VIAL SQ PRN (05:12)
[2017-05-11] MEDS: GLYTROL 1,000 ML BAG GT PRN ×2 (05:12→20:53)
[2017-05-11] MEDS: BLOOD SUGAR DIAGNOSTIC 1 EACH STRIP IN SCH ×2 (05:12→17:41)
[2017-05-11] MEDS: DEXILANT 30 MG GT SCH (05:12)
[2017-05-11 07:58] VITALS: BP 123/65
[2017-05-11] MEDS: ASPIRIN 81 MG TAB.CHEW GT SCH (08:10)
[2017-05-11] MEDS: LEVETIRACETAM SOL (5 ML) 100 MG/ML UDC GT SCH ×2 (08:11→20:52)
[2017-05-11] MEDS: PROSOURCE / PROSTAT (PYXIS) 30 ML UDC GT SCH ×2 (08:12→16:28)
[2017-05-11] MEDS: ACIDOPHILUS/BULGARICUS 1 EACH TAB.CHEW PO SCH ×3 (08:13→16:31)
[2017-05-11] MEDS: CALCIUM CARBONATE 500 MG TAB.CHEW GT SCH ×2 (08:13→16:31)
[2017-05-11] MEDS: TRILEPTAL GT SCH ×2 (08:32→20:52)
[2017-05-11] MEDS: BALM TP SCH ×2 (09:00→20:52)
[2017-05-11] MEDS: Z GUARD REMEDY 4 OZ OINT TP SCH ×2 (11:00→20:52)
[2017-05-11] MEDS: HYDROGEL DRESSING 90 GM TUBE TP SCH ×2 (11:00→20:52)
[2017-05-11] MEDS: VITAMINS A AND D 56.7 GM TUBE TP SCH ×2 (11:00→20:52)
[2017-05-11] MEDS: HYDROGEN PEROXIDE 480 ML BOTTLE TP SCH ×2 (11:00→20:52)
[2017-05-11 20:27] VITALS: BP 141/82
[2017-05-11] MEDS: MULTIVIT, IRON, MIN NO. 8, FA 1 TAB GT SCH (20:52)
[2017-05-11] MEDS: ASCORBIC ACID 500 MG TABLET GT SCH (20:52)
[2017-05-11] MEDS: SENNOSIDES 8.6 MG TABLET GT SCH (20:52)
[2017-05-12] MEDS: ALBUTEROL FS 2.5 MG/3 ML VIAL.NEB NEB SCH ×4 (01:25→19:30)
[2017-05-12] MEDS: DEXILANT 30 MG GT SCH (05:42)
[2017-05-12] MEDS: BLOOD SUGAR DIAGNOSTIC 1 EACH STRIP IN SCH ×2 (06:04→17:25)
[2017-05-12 08:08] VITALS: BP 95/57
[2017-05-12] MEDS: ASPIRIN 81 MG TAB.CHEW GT SCH (08:43)
[2017-05-12] MEDS: PROSOURCE / PROSTAT (PYXIS) 30 ML UDC GT SCH ×2 (08:49→17:20)
[2017-05-12] MEDS: CALCIUM CARBONATE 500 MG TAB.CHEW GT SCH ×2 (08:55→17:38)
[2017-05-12] MEDS: LEVETIRACETAM SOL (5 ML) 100 MG/ML UDC GT SCH ×2 (08:56→20:24)
[2017-05-12] MEDS: BALM TP SCH ×2 (08:57→20:24)
[2017-05-12] MEDS: Z GUARD REMEDY 4 OZ OINT TP SCH ×2 (09:00→20:24)
[2017-05-12] MEDS: HYDROGEN PEROXIDE 480 ML BOTTLE TP SCH ×2 (09:02→20:24)
[2017-05-12] MEDS: HYDROGEL DRESSING 90 GM TUBE TP SCH ×2 (09:04→20:24)
[2017-05-12] MEDS: VITAMINS A AND D 56.7 GM TUBE TP SCH ×2 (09:05→20:24)
[2017-05-12] MEDS: ACIDOPHILUS/BULGARICUS 1 EACH TAB.CHEW PO SCH ×3 (09:12→17:24)
[2017-05-12] MEDS: TRILEPTAL GT SCH ×2 (09:12→20:24)
[2017-05-12] MEDS: GLYTROL 1,000 ML BAG GT PRN (17:18)
[2017-05-12 19:59] VITALS: BP 118/78
[2017-05-12] MEDS: SENNOSIDES 8.6 MG TABLET GT SCH (20:24)
[2017-05-12] MEDS: ASCORBIC ACID 500 MG TABLET GT SCH (20:24)
[2017-05-12] MEDS: MULTIVIT, IRON, MIN NO. 8, FA 1 TAB GT SCH (20:24)
[2017-05-13] MEDS: ALBUTEROL FS 2.5 MG/3 ML VIAL.NEB NEB SCH ×4 (00:49→19:46)
[2017-05-13] MEDS: DEXILANT 30 MG GT SCH (05:48)
[2017-05-13] MEDS: BLOOD SUGAR DIAGNOSTIC 1 EACH STRIP IN SCH ×2 (06:16→17:50)
[2017-05-13] MEDS: GLYTROL 1,000 ML BAG GT PRN (06:39)
[2017-05-13 08:08] VITALS: BP 164/66
[2017-05-13] MEDS: ASPIRIN 81 MG TAB.CHEW GT SCH (09:28)
[2017-05-13] MEDS: CALCIUM CARBONATE 500 MG TAB.CHEW GT SCH ×2 (09:29→17:50)
[2017-05-13] MEDS: LEVETIRACETAM SOL (5 ML) 100 MG/ML UDC GT SCH ×2 (09:29→20:12)
[2017-05-13] MEDS: TRILEPTAL GT SCH ×2 (09:29→20:12)
[2017-05-13] MEDS: PROSOURCE / PROSTAT (PYXIS) 30 ML UDC GT SCH ×2 (09:29→17:50)
[2017-05-13] MEDS: VITAMINS A AND D 56.7 GM TUBE TP SCH ×2 (09:30→20:13)
[2017-05-13] MEDS: ACIDOPHILUS/BULGARICUS 1 EACH TAB.CHEW PO SCH ×3 (09:30→17:50)
[2017-05-13] MEDS: HYDROGEL DRESSING 90 GM TUBE TP SCH ×2 (09:30→20:12)
[2017-05-13] MEDS: Z GUARD REMEDY 4 OZ OINT TP SCH ×2 (09:30→20:13)
[2017-05-13] MEDS: HYDROGEN PEROXIDE 480 ML BOTTLE TP SCH ×2 (09:30→20:12)
[2017-05-13] MEDS: BALM TP SCH ×2 (09:30→20:12)
[2017-05-13 20:00] VITALS: BP 123/68
[2017-05-13] MEDS: ASCORBIC ACID 500 MG TABLET GT SCH (20:12)
[2017-05-13] MEDS: SENNOSIDES 8.6 MG TABLET GT SCH (20:12)
[2017-05-13] MEDS: MULTIVIT, IRON, MIN NO. 8, FA 1 TAB GT SCH (20:12)
[2017-05-14] MEDS: ALBUTEROL FS 2.5 MG/3 ML VIAL.NEB NEB SCH ×4 (01:25→19:28)
[2017-05-14] MEDS: DEXILANT 30 MG GT SCH (05:55)
[2017-05-14] MEDS: GLYTROL 1,000 ML BAG GT PRN ×2 (06:11→21:35)
[2017-05-14] MEDS: BLOOD SUGAR DIAGNOSTIC 1 EACH STRIP IN SCH ×2 (06:11→17:04)
[2017-05-14] MEDS: LEVETIRACETAM SOL (5 ML) 100 MG/ML UDC GT SCH ×2 (08:18→21:34)
[2017-05-14] MEDS: CALCIUM CARBONATE 500 MG TAB.CHEW GT SCH ×2 (08:19→16:53)
[2017-05-14] MEDS: PROSOURCE / PROSTAT (PYXIS) 30 ML UDC GT SCH ×2 (08:19→16:52)
[2017-05-14] MEDS: HYDROGEL DRESSING 90 GM TUBE TP SCH ×2 (08:20→21:35)
[2017-05-14] MEDS: VITAMINS A AND D 56.7 GM TUBE TP SCH ×2 (08:20→21:35)
[2017-05-14] MEDS: BALM TP SCH ×2 (08:20→21:35)
[2017-05-14] MEDS: Z GUARD REMEDY 4 OZ OINT TP SCH ×2 (08:20→21:35)
[2017-05-14] MEDS: HYDROGEN PEROXIDE 480 ML BOTTLE TP SCH ×2 (08:20→21:35)
[2017-05-14] MEDS: ACIDOPHILUS/BULGARICUS 1 EACH TAB.CHEW PO SCH ×3 (08:20→16:53)
[2017-05-14] MEDS: ASPIRIN 81 MG TAB.CHEW GT SCH (08:22)
[2017-05-14] MEDS: TRILEPTAL GT SCH ×2 (08:22→21:34)
[2017-05-14] MEDS: ASCORBIC ACID 500 MG TABLET GT SCH (21:34)
[2017-05-14] MEDS: MULTIVIT, IRON, MIN NO. 8, FA 1 TAB GT SCH (21:34)
[2017-05-14] MEDS: SENNOSIDES 8.6 MG TABLET GT SCH (21:34)
[2017-05-15] MEDS: ALBUTEROL FS 2.5 MG/3 ML VIAL.NEB NEB SCH ×4 (01:25→20:04)
[2017-05-15 02:21] VITALS: BP 117/77
[2017-05-15] MEDS: DEXILANT 30 MG GT SCH (06:21)
[2017-05-15] MEDS: INSULIN REGULAR, HUMAN 100 UNIT/ML 3 ML VIAL SQ PRN (06:50)
[2017-05-15] MEDS: BLOOD SUGAR DIAGNOSTIC 1 EACH STRIP IN SCH ×2 (06:50→17:59)
[2017-05-15 07:34] VITALS: BP 114/67
[2017-05-15] MEDS: ASPIRIN 81 MG TAB.CHEW GT SCH (08:35)
[2017-05-15] MEDS: TRILEPTAL GT SCH ×2 (08:35→20:45)
[2017-05-15] MEDS: LEVETIRACETAM SOL (5 ML) 100 MG/ML UDC GT SCH ×2 (08:35→20:45)
[2017-05-15] MEDS: HYDROGEN PEROXIDE 480 ML BOTTLE TP SCH ×2 (08:36→20:46)
[2017-05-15] MEDS: ACIDOPHILUS/BULGARICUS 1 EACH TAB.CHEW PO SCH ×2 (08:36→13:19)
[2017-05-15] MEDS: HYDROGEL DRESSING 90 GM TUBE TP SCH ×2 (08:36→21:00)
[2017-05-15] MEDS: CALCIUM CARBONATE 500 MG TAB.CHEW GT SCH ×2 (08:36→17:59)
[2017-05-15] MEDS: PROSOURCE / PROSTAT (PYXIS) 30 ML UDC GT SCH ×2 (08:36→17:59)
[2017-05-15] MEDS: Z GUARD REMEDY 4 OZ OINT TP SCH ×4 (08:36→21:00)
[2017-05-15] MEDS: BALM TP SCH ×2 (08:36→20:46)
[2017-05-15] MEDS: VITAMINS A AND D 56.7 GM TUBE TP SCH ×2 (08:37→20:46)
--- NOTE | 2017-05-15 14:07 | NUR ---
Seen and examined by Dr. Montaño, NNO given. Resident had a shower, and put patient in the gerichair x 2 hours, tolerated well.
[2017-05-15] MEDS ORDERED: Z GUARD REMEDY 2 OZ OINT TP PRN (16:00)
[2017-05-15] MEDS: ACIDOPHILUS/BULGARICUS 1 EACH TAB.CHEW GT SCH (17:59)
[2017-05-15 20:43] VITALS: BP 131/74
[2017-05-15] MEDS: MULTIVIT, IRON, MIN NO. 8, FA 1 TAB GT SCH (20:45)
[2017-05-15] MEDS: SENNOSIDES 8.6 MG TABLET GT SCH (20:45)
[2017-05-15] MEDS: ASCORBIC ACID 500 MG TABLET GT SCH (20:45)
[2017-05-15] MEDS: GLYTROL 1,000 ML BAG GT PRN (20:46)
[2017-05-16] MEDS: ALBUTEROL FS 2.5 MG/3 ML VIAL.NEB NEB SCH ×4 (01:30→20:17)
[2017-05-16] MEDS: DEXILANT 30 MG GT SCH (06:15)
[2017-05-16] MEDS: BLOOD SUGAR DIAGNOSTIC 1 EACH STRIP IN SCH ×2 (06:45→17:18)
[2017-05-16] MEDS: INSULIN REGULAR, HUMAN 100 UNIT/ML 3 ML VIAL SQ PRN (06:46)
[2017-05-16 08:04] VITALS: BP 126/74
[2017-05-16] MEDS: HYDROGEN PEROXIDE 480 ML BOTTLE TP SCH ×2 (08:20→20:43)
[2017-05-16] MEDS: TRILEPTAL GT SCH ×2 (08:20→20:42)
[2017-05-16] MEDS: LEVETIRACETAM SOL (5 ML) 100 MG/ML UDC GT SCH ×2 (08:20→20:42)
[2017-05-16] MEDS: BALM TP SCH ×2 (08:20→20:43)
[2017-05-16] MEDS: ASPIRIN 81 MG TAB.CHEW GT SCH (08:20)
[2017-05-16] MEDS: CALCIUM CARBONATE 500 MG TAB.CHEW GT SCH ×2 (08:20→17:18)
[2017-05-16] MEDS: HYDROGEL DRESSING 90 GM TUBE TP SCH ×2 (08:20→20:43)
[2017-05-16] MEDS: PROSOURCE / PROSTAT (PYXIS) 30 ML UDC GT SCH ×2 (08:20→17:18)
[2017-05-16] MEDS: ACIDOPHILUS/BULGARICUS 1 EACH TAB.CHEW GT SCH ×3 (08:20→17:18)
[2017-05-16] MEDS: Z GUARD REMEDY 4 OZ OINT TP SCH ×6 (08:21→20:43)
[2017-05-16] MEDS: VITAMINS A AND D 56.7 GM TUBE TP SCH ×2 (08:21→20:44)
[2017-05-16] MEDS: GLYTROL 1,000 ML BAG GT PRN ×2 (10:51→12:23)
[2017-05-16] MEDS: BISACODYL SUPP (10 MG) 10 MG/SUPP.RECT SUPP.RECT RC PRN (17:40)
[2017-05-16] MEDS: ASCORBIC ACID 500 MG TABLET GT SCH (20:42)
[2017-05-16] MEDS: SENNOSIDES 8.6 MG TABLET GT SCH (20:42)
[2017-05-16] MEDS: MULTIVIT, IRON, MIN NO. 8, FA 1 TAB GT SCH (20:42)
[2017-05-16 22:16] VITALS: BP 113/58
[2017-05-17] MEDS: ALBUTEROL FS 2.5 MG/3 ML VIAL.NEB NEB SCH ×4 (01:06→20:11)
[2017-05-17] MEDS: DEXILANT 30 MG GT SCH (06:21)
[2017-05-17] MEDS: BLOOD SUGAR DIAGNOSTIC 1 EACH STRIP IN SCH ×2 (06:34→17:20)
[2017-05-17] MEDS: INSULIN REGULAR, HUMAN 100 UNIT/ML 3 ML VIAL SQ PRN ×2 (06:34→18:18)
[2017-05-17] MEDS: ASPIRIN 81 MG TAB.CHEW GT SCH (08:10)
[2017-05-17] MEDS: TRILEPTAL GT SCH ×2 (08:13→20:35)
[2017-05-17] MEDS: LEVETIRACETAM SOL (5 ML) 100 MG/ML UDC GT SCH ×2 (08:15→20:35)
[2017-05-17] MEDS: ACIDOPHILUS/BULGARICUS 1 EACH TAB.CHEW GT SCH ×3 (08:15→17:19)
[2017-05-17] MEDS: CALCIUM CARBONATE 500 MG TAB.CHEW GT SCH ×2 (08:16→17:19)
[2017-05-17] MEDS: PROSOURCE / PROSTAT (PYXIS) 30 ML UDC GT SCH ×2 (08:16→17:19)
[2017-05-17 08:39] VITALS: BP 121/69
[2017-05-17] MEDS: BALM TP SCH ×2 (10:00→20:38)
[2017-05-17] MEDS: Z GUARD REMEDY 4 OZ OINT TP SCH ×6 (10:00→20:38)
[2017-05-17] MEDS: VITAMINS A AND D 56.7 GM TUBE TP SCH ×2 (10:00→20:38)
[2017-05-17] MEDS: HYDROGEL DRESSING 90 GM TUBE TP SCH ×2 (10:00→20:38)
[2017-05-17] MEDS: HYDROGEN PEROXIDE 480 ML BOTTLE TP SCH ×2 (11:00→20:38)
[2017-05-17 19:32] VITALS: BP 125/75
[2017-05-17] MEDS: MULTIVIT, IRON, MIN NO. 8, FA 1 TAB GT SCH (20:36)
[2017-05-17] MEDS: SENNOSIDES 8.6 MG TABLET GT SCH (20:36)
[2017-05-17] MEDS: ASCORBIC ACID 500 MG TABLET GT SCH (20:38)
[2017-05-17] MEDS: GLYTROL 1,000 ML BAG GT PRN (20:43)
[2017-05-18] MEDS: ALBUTEROL FS 2.5 MG/3 ML VIAL.NEB NEB SCH ×4 (02:14→20:02)
[2017-05-18] MEDS: DEXILANT 30 MG GT SCH (06:00)
[2017-05-18] MEDS: BLOOD SUGAR DIAGNOSTIC 1 EACH STRIP IN SCH ×2 (06:00→18:16)
[2017-05-18 08:00] VITALS: BP 126/71
[2017-05-18] MEDS: ASPIRIN 81 MG TAB.CHEW GT SCH (08:35)
[2017-05-18] MEDS: LEVETIRACETAM SOL (5 ML) 100 MG/ML UDC GT SCH ×2 (08:36→20:24)
[2017-05-18] MEDS: ACIDOPHILUS/BULGARICUS 1 EACH TAB.CHEW GT SCH ×3 (08:36→17:10)
[2017-05-18] MEDS: TRILEPTAL GT SCH ×2 (08:36→20:24)
[2017-05-18] MEDS: CALCIUM CARBONATE 500 MG TAB.CHEW GT SCH ×2 (08:37→17:10)
[2017-05-18] MEDS: PROSOURCE / PROSTAT (PYXIS) 30 ML UDC GT SCH ×2 (08:37→17:10)
[2017-05-18] MEDS: Z GUARD REMEDY 4 OZ OINT TP SCH ×6 (08:37→20:27)
[2017-05-18] MEDS: BALM TP SCH ×2 (08:37→20:26)
[2017-05-18] MEDS: HYDROGEL DRESSING 90 GM TUBE TP SCH ×2 (08:37→20:26)
[2017-05-18] MEDS: HYDROGEN PEROXIDE 480 ML BOTTLE TP SCH ×2 (08:37→20:27)
[2017-05-18] MEDS: VITAMINS A AND D 56.7 GM TUBE TP SCH ×2 (08:38→20:27)
[2017-05-18] MEDS: INSULIN REGULAR, HUMAN 100 UNIT/ML 3 ML VIAL SQ PRN (18:16)
[2017-05-18 19:55] VITALS: BP 128/71
[2017-05-18] MEDS: SENNOSIDES 8.6 MG TABLET GT SCH (20:25)
[2017-05-18] MEDS: ASCORBIC ACID 500 MG TABLET GT SCH (20:25)
[2017-05-18] MEDS: MULTIVIT, IRON, MIN NO. 8, FA 1 TAB GT SCH (20:25)
[2017-05-19] MEDS: ALBUTEROL FS 2.5 MG/3 ML VIAL.NEB NEB SCH ×4 (01:28→19:30)
[2017-05-19] MEDS: DEXILANT 30 MG GT SCH (05:27)
[2017-05-19] MEDS: BLOOD SUGAR DIAGNOSTIC 1 EACH STRIP IN SCH ×2 (05:27→17:09)
[2017-05-19 07:56] VITALS: BP 121/83
[2017-05-19] MEDS: ASPIRIN 81 MG TAB.CHEW GT SCH (08:03)
[2017-05-19] MEDS: TRILEPTAL GT SCH ×2 (08:03→20:25)
[2017-05-19] MEDS: CALCIUM CARBONATE 500 MG TAB.CHEW GT SCH ×2 (08:04→17:08)
[2017-05-19] MEDS: ACIDOPHILUS/BULGARICUS 1 EACH TAB.CHEW GT SCH ×3 (08:04→17:07)
[2017-05-19] MEDS: LEVETIRACETAM SOL (5 ML) 100 MG/ML UDC GT SCH ×2 (08:04→20:25)
[2017-05-19] MEDS: PROSOURCE / PROSTAT (PYXIS) 30 ML UDC GT SCH ×2 (08:04→17:07)
[2017-05-19] MEDS: HYDROGEN PEROXIDE 480 ML BOTTLE TP SCH ×2 (10:30→20:28)
[2017-05-19] MEDS: Z GUARD REMEDY 4 OZ OINT TP SCH ×6 (11:30→20:28)
[2017-05-19] MEDS: HYDROGEL DRESSING 90 GM TUBE TP SCH ×2 (11:30→20:27)
[2017-05-19] MEDS: VITAMINS A AND D 56.7 GM TUBE TP SCH ×2 (11:30→20:28)
[2017-05-19] MEDS: BALM TP SCH ×2 (11:30→20:28)
--- NOTE | 2017-05-19 14:40 | NUR ---
Sister Beckie informed of IDT meeting for this Monday May 22, 2017 from 12:30pm-1:30pm. She stated that she would like to attend in person and SW will get her when it is her turn.
--- NOTE | 2017-05-19 20:21 | NUR ---
NURSES NOTES: PT HAS A LOW GRADE FEVER OF 99.6 WHEN RECEIVED FROM THE MORNING SHIFT, COOLING MEASURES STARTED AND CONTINUE TO MONITOR PT FOR ELEVATED TEMP.
[2017-05-19 20:24] VITALS: BP 134/45
[2017-05-19] MEDS: MULTIVIT, IRON, MIN NO. 8, FA 1 TAB GT SCH (20:27)
[2017-05-19] MEDS: SENNOSIDES 8.6 MG TABLET GT SCH (20:27)
[2017-05-19] MEDS: ASCORBIC ACID 500 MG TABLET GT SCH (20:27)
[2017-05-20] MEDS: ALBUTEROL FS 2.5 MG/3 ML VIAL.NEB NEB SCH ×4 (00:22→20:08)
[2017-05-20] MEDS: GLYTROL 1,000 ML BAG GT PRN ×2 (03:27→21:51)
[2017-05-20] MEDS: DEXILANT 30 MG GT SCH (05:35)
[2017-05-20] MEDS: BLOOD SUGAR DIAGNOSTIC 1 EACH STRIP IN SCH ×2 (05:35→17:44)
[2017-05-20 07:35] VITALS: BP 129/67
[2017-05-20] MEDS: ASPIRIN 81 MG TAB.CHEW GT SCH (09:29)
[2017-05-20] MEDS: TRILEPTAL GT SCH ×2 (09:30→21:50)
[2017-05-20] MEDS: LEVETIRACETAM SOL (5 ML) 100 MG/ML UDC GT SCH ×2 (09:31→21:50)
[2017-05-20] MEDS: PROSOURCE / PROSTAT (PYXIS) 30 ML UDC GT SCH ×2 (09:32→17:44)
[2017-05-20] MEDS: ACIDOPHILUS/BULGARICUS 1 EACH TAB.CHEW GT SCH ×3 (09:32→17:44)
[2017-05-20] MEDS: CALCIUM CARBONATE 500 MG TAB.CHEW GT SCH ×2 (09:32→17:44)
[2017-05-20] MEDS: BALM TP SCH ×2 (09:33→21:50)
[2017-05-20] MEDS: HYDROGEL DRESSING 90 GM TUBE TP SCH ×2 (09:33→21:50)
[2017-05-20] MEDS: Z GUARD REMEDY 4 OZ OINT TP SCH ×6 (09:33→21:51)
[2017-05-20] MEDS: VITAMINS A AND D 56.7 GM TUBE TP SCH ×2 (09:33→21:51)
[2017-05-20] MEDS: HYDROGEN PEROXIDE 480 ML BOTTLE TP SCH ×2 (11:00→21:50)
[2017-05-20 20:16] VITALS: BP 114/63
[2017-05-20] MEDS: MULTIVIT, IRON, MIN NO. 8, FA 1 TAB GT SCH (21:50)
[2017-05-20] MEDS: SENNOSIDES 8.6 MG TABLET GT SCH (21:50)
[2017-05-20] MEDS: ASCORBIC ACID 500 MG TABLET GT SCH (21:50)
[2017-05-21] MEDS: ALBUTEROL FS 2.5 MG/3 ML VIAL.NEB NEB SCH ×4 (01:38→19:34)
[2017-05-21] MEDS: DEXILANT 30 MG GT SCH (05:48)
[2017-05-21] MEDS: INSULIN REGULAR, HUMAN 100 UNIT/ML 3 ML VIAL SQ PRN (06:28)
[2017-05-21] MEDS: BLOOD SUGAR DIAGNOSTIC 1 EACH STRIP IN SCH ×2 (06:28→17:58)
--- NOTE | 2017-05-21 06:35 | NUR ---
Pt noted with 99.1 temp.urine output looks cloudy with sediments.Cooling measures provided,will continue to monitor and will endorse to oncoming shift.
[2017-05-21 07:31] VITALS: BP 125/68
[2017-05-21] MEDS: TRILEPTAL GT SCH ×2 (09:32→20:39)
[2017-05-21] MEDS: ACIDOPHILUS/BULGARICUS 1 EACH TAB.CHEW GT SCH ×3 (09:32→16:49)
[2017-05-21] MEDS: CALCIUM CARBONATE 500 MG TAB.CHEW GT SCH ×2 (09:32→16:49)
[2017-05-21] MEDS: HYDROGEN PEROXIDE 480 ML BOTTLE TP SCH ×2 (09:32→20:40)
[2017-05-21] MEDS: BALM TP SCH ×2 (09:32→20:39)
[2017-05-21] MEDS: ASPIRIN 81 MG TAB.CHEW GT SCH (09:32)
[2017-05-21] MEDS: HYDROGEL DRESSING 90 GM TUBE TP SCH ×2 (09:32→20:39)
[2017-05-21] MEDS: LEVETIRACETAM SOL (5 ML) 100 MG/ML UDC GT SCH ×2 (09:32→20:39)
[2017-05-21] MEDS: PROSOURCE / PROSTAT (PYXIS) 30 ML UDC GT SCH ×2 (09:32→16:49)
[2017-05-21] MEDS: Z GUARD REMEDY 4 OZ OINT TP SCH ×6 (09:32→20:40)
[2017-05-21] MEDS: VITAMINS A AND D 56.7 GM TUBE TP SCH ×2 (09:33→20:41)
--- NOTE | 2017-05-21 14:30 | NUR ---
Seen by WET END SUPERVISOR Anna Vargas. Notified her that pt's urine is cloudy and temp was 99 F. Nurse giving water flushes. No new order.
[2017-05-21 19:40] VITALS: BP 129/74
[2017-05-21] MEDS: ASCORBIC ACID 500 MG TABLET GT SCH (20:39)
[2017-05-21] MEDS: SENNOSIDES 8.6 MG TABLET GT SCH (20:39)
[2017-05-21] MEDS: MULTIVIT, IRON, MIN NO. 8, FA 1 TAB GT SCH (20:39)
[2017-05-22] MEDS: CODEINE/PROMETHAZINE HCL 5 ML UDC GT PRN (00:16)
[2017-05-22] MEDS: ALBUTEROL FS 2.5 MG/3 ML VIAL.NEB NEB SCH ×4 (02:07→19:38)
[2017-05-22] MEDS: DEXILANT 30 MG GT SCH (05:45)
[2017-05-22] MEDS: BLOOD SUGAR DIAGNOSTIC 1 EACH STRIP IN SCH ×2 (05:45→17:17)
[2017-05-22] MEDS: INSULIN REGULAR, HUMAN 100 UNIT/ML 3 ML VIAL SQ PRN (05:46)
--- NOTE | 2017-05-22 07:44 | NUR ---
Social Service Section of [facility] ( 3rd quarter) completed. Resident is on a trach, gtube, and ventilator. Per charge nurse, resident attempts to mouth words when you talk to her but cannot verbalize. However, this does not occur on a daily basis. Sister is the responsible libertarian for the resident and is her conservator. Resident was last seen by the dentist Dr. Paredes on 11/17/2016 for her dental cleaning, the senior solutions workflow consultant Dr. Araya on 03/18/2017, and by the naval architect specialist Dr. Escalante on 07/08/2016 for her annual exam. Addendum: 05/22/17 at 0747 by BONITA MITCHELL She was seen by the naval architect specialist Dr. Escalante on 08/28/2016 not 07/08/2016 and senior solutions workflow consultant Br. Araya on 03/06/2017
[2017-05-22 08:00] VITALS: BP 133/71
[2017-05-22] MEDS: ASPIRIN 81 MG TAB.CHEW GT SCH (08:34)
[2017-05-22] MEDS: TRILEPTAL GT SCH ×2 (08:35→21:48)
[2017-05-22] MEDS: ACIDOPHILUS/BULGARICUS 1 EACH TAB.CHEW GT SCH ×3 (08:36→17:17)
[2017-05-22] MEDS: PROSOURCE / PROSTAT (PYXIS) 30 ML UDC GT SCH ×2 (08:36→17:17)
[2017-05-22] MEDS: CALCIUM CARBONATE 500 MG TAB.CHEW GT SCH ×2 (08:36→17:17)
[2017-05-22] MEDS: LEVETIRACETAM SOL (5 ML) 100 MG/ML UDC GT SCH ×2 (08:36→21:48)
[2017-05-22] MEDS: HYDROGEL DRESSING 90 GM TUBE TP SCH ×2 (08:37→21:48)
[2017-05-22] MEDS: Z GUARD REMEDY 4 OZ OINT TP SCH ×6 (08:37→21:48)
[2017-05-22] MEDS: VITAMINS A AND D 56.7 GM TUBE TP SCH ×2 (08:37→21:49)
[2017-05-22] MEDS: BALM TP SCH ×2 (08:37→21:48)
[2017-05-22] MEDS: HYDROGEN PEROXIDE 480 ML BOTTLE TP SCH ×2 (11:00→21:48)
--- NOTE | 2017-05-22 11:42 | NUR ---
WOUND CARE CONSULT: PT SEEN FOR REASSESSMENT OF RE-OPENED STAGE 3 SACRAL WOUND WHICH IS NOW HEALED. RECOMMENDATIONS MADE FOR SKIN PROTECTION. DISCUSSED WITH NURSING STAFF. ALL SKIN PROTECTION MEASURES IN PLACE. WILL SEE PRN. IN AGREEMENT WITH PLAN OF CARE.
--- NOTE | 2017-05-22 14:08 | NUR ---
IDT meeting held, reviewed current orders, medications, recent lab result, treatments and care plan. Resident's sister Beckie attended the meeting. She mentioned patient's GT is old and asked if it can be replaced, Dr. Felix ordered GI consult. F/C changed due to some sediments noted. Resident's sister very pleased with patient's skin and reported to the team that wound nurse reevaluated re-opened sacral wound and discontinued treatment because it is healed. Current treatment is only for maintenance. Left a message to KIMBERLY Lock regarding the consult.
--- NOTE | 2017-05-22 17:50 | NUR ---
Seen and evaluated GT by Arlene Munoz NP, she said she will replace GT on Thursday.
[2017-05-22] MEDS: GLYTROL 1,000 ML BAG GT PRN (18:24)
[2017-05-22 19:43] VITALS: BP 140/90
[2017-05-22] MEDS: MULTIVIT, IRON, MIN NO. 8, FA 1 TAB GT SCH (21:48)
[2017-05-22] MEDS: SENNOSIDES 8.6 MG TABLET GT SCH (21:48)
[2017-05-22] MEDS: ASCORBIC ACID 500 MG TABLET GT SCH (21:48)
[2017-05-23] MEDS: ALBUTEROL FS 2.5 MG/3 ML VIAL.NEB NEB SCH ×4 (01:21→19:45)
[2017-05-23] MEDS: CODEINE/PROMETHAZINE HCL 5 ML UDC GT PRN (02:08)
[2017-05-23] MEDS: DEXILANT 30 MG GT SCH (06:18)
[2017-05-23] MEDS: BLOOD SUGAR DIAGNOSTIC 1 EACH STRIP IN SCH ×2 (06:37→17:37)
[2017-05-23] MEDS: INSULIN REGULAR, HUMAN 100 UNIT/ML 3 ML VIAL SQ PRN (06:38)
[2017-05-23 07:46] VITALS: BP 135/80
[2017-05-23] MEDS: ACIDOPHILUS/BULGARICUS 1 EACH TAB.CHEW GT SCH ×3 (08:55→16:47)
[2017-05-23] MEDS: LEVETIRACETAM SOL (5 ML) 100 MG/ML UDC GT SCH ×2 (08:55→20:25)
[2017-05-23] MEDS: VITAMINS A AND D 56.7 GM TUBE TP SCH ×2 (08:55→20:26)
[2017-05-23] MEDS: PROSOURCE / PROSTAT (PYXIS) 30 ML UDC GT SCH ×2 (08:55→16:47)
[2017-05-23] MEDS: TRILEPTAL GT SCH ×2 (08:55→20:24)
[2017-05-23] MEDS: CALCIUM CARBONATE 500 MG TAB.CHEW GT SCH ×2 (08:55→16:47)
[2017-05-23] MEDS: HYDROGEN PEROXIDE 480 ML BOTTLE TP SCH ×2 (08:55→20:26)
[2017-05-23] MEDS: ASPIRIN 81 MG TAB.CHEW GT SCH (08:55)
[2017-05-23] MEDS: BALM TP SCH ×2 (08:55→20:26)
[2017-05-23] MEDS: Z GUARD REMEDY 4 OZ OINT TP SCH ×2 (08:55→20:26)
--- NOTE | 2017-05-23 18:32 | NUR ---
Seen and examined by Arlene Munoz NP GI she said that they plan to replace GT on Thursday and requested to prepare GT Fr. # 20, she said if they cannot do it at bedside they will do EGD. Endorsed.
[2017-05-23 19:42] VITALS: BP 121/86
[2017-05-23] MEDS: MULTIVIT, IRON, MIN NO. 8, FA 1 TAB GT SCH (20:25)
[2017-05-23] MEDS: SENNOSIDES 8.6 MG TABLET GT SCH (20:25)
[2017-05-23] MEDS: ASCORBIC ACID 500 MG TABLET GT SCH (20:26)
[2017-05-24] MEDS: ALBUTEROL FS 2.5 MG/3 ML VIAL.NEB NEB SCH ×4 (01:18→19:49)
[2017-05-24] MEDS: GLYTROL 1,000 ML BAG GT PRN ×2 (04:15→23:39)
[2017-05-24] MEDS: DEXILANT 30 MG GT SCH (05:42)
[2017-05-24] MEDS: BLOOD SUGAR DIAGNOSTIC 1 EACH STRIP IN SCH ×2 (05:42→17:53)
[2017-05-24 08:00] VITALS: BP 123/77
[2017-05-24] MEDS: PROSOURCE / PROSTAT (PYXIS) 30 ML UDC GT SCH ×2 (09:33→17:35)
[2017-05-24] MEDS: LEVETIRACETAM SOL (5 ML) 100 MG/ML UDC GT SCH ×2 (09:33→20:31)
[2017-05-24] MEDS: ACIDOPHILUS/BULGARICUS 1 EACH TAB.CHEW GT SCH ×3 (09:33→17:35)
[2017-05-24] MEDS: CALCIUM CARBONATE 500 MG TAB.CHEW GT SCH ×2 (09:33→17:35)
[2017-05-24] MEDS: ASPIRIN 81 MG TAB.CHEW GT SCH (09:33)
[2017-05-24] MEDS: TRILEPTAL GT SCH ×2 (09:33→20:31)
[2017-05-24] MEDS: BALM TP SCH ×2 (09:33→20:32)
[2017-05-24] MEDS: Z GUARD REMEDY 4 OZ OINT TP SCH ×2 (09:34→20:32)
[2017-05-24] MEDS: VITAMINS A AND D 56.7 GM TUBE TP SCH ×2 (09:34→20:32)
[2017-05-24] MEDS: HYDROGEN PEROXIDE 480 ML BOTTLE TP SCH ×2 (09:34→20:32)
[2017-05-24 20:03] VITALS: BP 117/60
[2017-05-24] MEDS: SENNOSIDES 8.6 MG TABLET GT SCH (20:31)
[2017-05-24] MEDS: MULTIVIT, IRON, MIN NO. 8, FA 1 TAB GT SCH (20:31)
[2017-05-24] MEDS: ASCORBIC ACID 500 MG TABLET GT SCH (20:32)
[2017-05-25] MEDS: ALBUTEROL FS 2.5 MG/3 ML VIAL.NEB NEB SCH ×4 (02:09→20:12)
[2017-05-25] MEDS: BLOOD SUGAR DIAGNOSTIC 1 EACH STRIP IN SCH ×2 (05:29→18:35)
[2017-05-25] MEDS: DEXILANT 30 MG GT SCH (05:29)
[2017-05-25] MEDS: LORAZEPAM 1 MG TABLET GT PRN (07:42)
[2017-05-25 07:43] LABS: BASOPHILS # (AUTO) 0.1 /CMM (0.0-0.2); BASOPHILS % (AUTO) 0.5 % (0.0-2.0); EOSINOPHILS % (AUTO) 7.7 % (0.0-6.0); HEMATOCRIT 32 % (33-45); HEMOGLOBIN 10.4 g/dL (11.5-14.8); LYMPHOCYTES % (AUTO) 16.1 % (20.0-44.0); MEAN CORPUSCULAR HEMOGLOBIN 31 PG (26.0-33.0); MEAN CORPUSCULAR HGB CONC 33 g/dl (31.0-36.0); MEAN CORPUSCULAR VOLUME 95 fL (82-100); MONOCYTES # (AUTO) 0.8 /CMM (0.1-1.30); MONOCYTES % (AUTO) 6.4 % (2.0-12.0); NEUTROPHILS # (AUTO) 8.6 /CMM (1.8-8.9); NEUTROPHILS % (AUTO) 69.3 % (43.0-81.0); PLATELET COUNT (AUTO) 440 /CMM (150-450); RDW COEFFICIENT OF VARIATION 14.6 (11.5-15.0); RED BLOOD CELL COUNT(AUTO) 3.33 MIL/uL (4.0-5.2); WHITE BLOOD COUNT (AUTO) 12.4 K/uL (4.3-11.0)
[2017-05-25 07:59] VITALS: BP 152/88
[2017-05-25] MEDS: HYDROGEN PEROXIDE 480 ML BOTTLE TP SCH ×2 (09:00→21:13)
[2017-05-25] MEDS: Z GUARD REMEDY 4 OZ OINT TP SCH ×2 (09:00→21:13)
[2017-05-25] MEDS: VITAMINS A AND D 56.7 GM TUBE TP SCH ×2 (09:00→21:13)
[2017-05-25] MEDS: BALM TP SCH ×2 (09:00→21:13)
[2017-05-25] MEDS: ACIDOPHILUS/BULGARICUS 1 EACH TAB.CHEW GT SCH ×3 (09:12→17:00)
[2017-05-25] MEDS: LEVETIRACETAM SOL (5 ML) 100 MG/ML UDC GT SCH ×2 (09:12→21:13)
[2017-05-25] MEDS: ASPIRIN 81 MG TAB.CHEW GT SCH (09:12)
[2017-05-25] MEDS: TRILEPTAL GT SCH ×2 (09:12→21:13)
[2017-05-25] MEDS: PROSOURCE / PROSTAT (PYXIS) 30 ML UDC GT SCH ×2 (09:12→17:00)
[2017-05-25] MEDS: CALCIUM CARBONATE 500 MG TAB.CHEW GT SCH ×2 (09:12→17:00)
--- NOTE | 2017-05-25 09:30 | NUR ---
Notified Dr. Montaño that pt had a seizure lasting about 20 seconds this morning at 730am and Ativan was given. Dr. Montaño said to refer the pt to Dr. Lance.
--- NOTE | 2017-05-25 11:37 | NUR ---
Notified pt's sister Beckie that pt had an episode of seizure this morning, pt was given Ativan, and Dr. Montaño ordered neurology consult with Dr. Lance. Pt's sister said pt's levels have been normal and pt has been having seizures since she was 10 months old.
--- NOTE | 2017-05-25 11:59 | NUR ---
Left message for Dr. Lance to see pt for neurology consult.
--- NOTE | 2017-05-25 15:25 | NUR ---
DRY CLEANING ATTENDANT Arlene Munoz ordered NPO after midnight tonight for EGD with PEG tomorrow. Pt's sister Beckie gave gave her consent.
--- NOTE | 2017-05-25 16:00 | NUR ---
CORPORATE ACCOUNTANT Arlene Munoz said Dr. Ramsey wants to hold off on the EGD with PEG placement tomorrow. She said she will cancel the orders.
--- NOTE | 2017-05-25 16:40 | NUR ---
Notified pt's sister Beckie that EGD with PEG is canceled for tomorrow.
[2017-05-25] MEDS: INSULIN REGULAR, HUMAN 100 UNIT/ML 3 ML VIAL SQ PRN (18:35)
[2017-05-25 20:37] VITALS: BP 98/60
--- NOTE | 2017-05-25 21:00 | NUR ---
RN NOTES Received pt in bed awake with no respiratory distress, no SOB. No seizure activity noted. Pt appears to be comfortable in bed. Will continue to monitor.
[2017-05-25] MEDS: MULTIVIT, IRON, MIN NO. 8, FA 1 TAB GT SCH (21:13)
[2017-05-25] MEDS: SENNOSIDES 8.6 MG TABLET GT SCH (21:13)
[2017-05-25] MEDS: ASCORBIC ACID 500 MG TABLET GT SCH (21:13)
[2017-05-25] MEDS: GLYTROL 1,000 ML BAG GT PRN (21:33)
[2017-05-26] MEDS: ALBUTEROL FS 2.5 MG/3 ML VIAL.NEB NEB SCH ×4 (01:30→19:37)
[2017-05-26] MEDS: BLOOD SUGAR DIAGNOSTIC 1 EACH STRIP IN SCH ×2 (05:23→18:35)
[2017-05-26] MEDS: DEXILANT 30 MG GT SCH (05:23)
--- NOTE | 2017-05-26 06:00 | NUR ---
RN NOTES No seizure activity noted. Pt appears to be comfortable in bed.
[2017-05-26 07:39] VITALS: BP 116/73
[2017-05-26] MEDS: ACIDOPHILUS/BULGARICUS 1 EACH TAB.CHEW GT SCH ×3 (09:40→17:00)
[2017-05-26] MEDS: LEVETIRACETAM SOL (5 ML) 100 MG/ML UDC GT SCH ×2 (09:40→20:34)
[2017-05-26] MEDS: CALCIUM CARBONATE 500 MG TAB.CHEW GT SCH ×2 (09:40→17:00)
[2017-05-26] MEDS: BALM TP SCH ×2 (09:40→20:35)
[2017-05-26] MEDS: TRILEPTAL GT SCH ×2 (09:40→20:33)
[2017-05-26] MEDS: ASPIRIN 81 MG TAB.CHEW GT SCH (09:40)
[2017-05-26] MEDS: PROSOURCE / PROSTAT (PYXIS) 30 ML UDC GT SCH ×2 (09:40→17:00)
[2017-05-26] MEDS: HYDROGEN PEROXIDE 480 ML BOTTLE TP SCH ×2 (09:40→20:35)
[2017-05-26] MEDS: Z GUARD REMEDY 4 OZ OINT TP SCH ×2 (09:55→20:35)
[2017-05-26] MEDS: VITAMINS A AND D 56.7 GM TUBE TP SCH ×2 (09:55→20:35)
--- NOTE | 2017-05-26 11:15 | NUR ---
Called Dr. Lance's office and left message with Lis.
[2017-05-26] MEDS: INSULIN REGULAR, HUMAN 100 UNIT/ML 3 ML VIAL SQ PRN (18:35)
[2017-05-26 19:58] VITALS: BP 125/72
--- NOTE | 2017-05-26 20:00 | NUR ---
RN NOTES Pt in stable condition. No seizure activity noted. Pt appears to be comfortable in bed.
[2017-05-26] MEDS: SENNOSIDES 8.6 MG TABLET GT SCH (20:34)
[2017-05-26] MEDS: MULTIVIT, IRON, MIN NO. 8, FA 1 TAB GT SCH (20:34)
[2017-05-26] MEDS: ASCORBIC ACID 500 MG TABLET GT SCH (20:35)
[2017-05-27] MEDS: ALBUTEROL FS 2.5 MG/3 ML VIAL.NEB NEB SCH ×4 (00:49→19:52)
[2017-05-27] MEDS: DEXILANT 30 MG GT SCH (05:36)
[2017-05-27] MEDS: BLOOD SUGAR DIAGNOSTIC 1 EACH STRIP IN SCH ×2 (05:36→17:56)
[2017-05-27] MEDS: GLYTROL 1,000 ML BAG GT PRN ×2 (05:37→22:07)
--- NOTE | 2017-05-27 06:19 | NUR ---
RN NOTES No seizure activity noted throughout shift. Pt appears to be comfortable in bed.
[2017-05-27 08:08] VITALS: BP 122/73
[2017-05-27] MEDS: ASPIRIN 81 MG TAB.CHEW GT SCH (08:44)
[2017-05-27] MEDS: TRILEPTAL GT SCH ×2 (08:47→20:38)
[2017-05-27] MEDS: ACIDOPHILUS/BULGARICUS 1 EACH TAB.CHEW GT SCH ×3 (08:47→17:56)
[2017-05-27] MEDS: LEVETIRACETAM SOL (5 ML) 100 MG/ML UDC GT SCH ×2 (08:47→20:38)
[2017-05-27] MEDS: PROSOURCE / PROSTAT (PYXIS) 30 ML UDC GT SCH ×2 (08:48→17:56)
[2017-05-27] MEDS: BALM TP SCH ×2 (08:48→21:00)
[2017-05-27] MEDS: CALCIUM CARBONATE 500 MG TAB.CHEW GT SCH ×2 (08:48→17:56)
[2017-05-27] MEDS: HYDROGEN PEROXIDE 480 ML BOTTLE TP SCH ×2 (09:00→21:00)
[2017-05-27] MEDS: Z GUARD REMEDY 4 OZ OINT TP SCH ×2 (09:00→21:00)
[2017-05-27] MEDS: VITAMINS A AND D 56.7 GM TUBE TP SCH ×2 (09:00→21:00)
[2017-05-27] MEDS: INSULIN REGULAR, HUMAN 100 UNIT/ML 3 ML VIAL SQ PRN (18:04)
[2017-05-27 20:13] VITALS: BP 123/75
[2017-05-27] MEDS: ASCORBIC ACID 500 MG TABLET GT SCH (20:38)
[2017-05-27] MEDS: MULTIVIT, IRON, MIN NO. 8, FA 1 TAB GT SCH (20:38)
[2017-05-27] MEDS: SENNOSIDES 8.6 MG TABLET GT SCH (20:38)
[2017-05-28] MEDS: ALBUTEROL FS 2.5 MG/3 ML VIAL.NEB NEB SCH ×4 (00:50→19:00)
[2017-05-28] MEDS: BLOOD SUGAR DIAGNOSTIC 1 EACH STRIP IN SCH ×2 (05:44→18:05)
[2017-05-28] MEDS: DEXILANT 30 MG GT SCH (05:44)
[2017-05-28] MEDS: INSULIN REGULAR, HUMAN 100 UNIT/ML 3 ML VIAL SQ PRN (05:45)
[2017-05-28 07:27] VITALS: BP 123/70
[2017-05-28] MEDS: TRILEPTAL GT SCH ×2 (08:45→20:32)
[2017-05-28] MEDS: HYDROGEN PEROXIDE 480 ML BOTTLE TP SCH ×2 (08:45→21:37)
[2017-05-28] MEDS: LEVETIRACETAM SOL (5 ML) 100 MG/ML UDC GT SCH ×2 (08:45→20:32)
[2017-05-28] MEDS: CALCIUM CARBONATE 500 MG TAB.CHEW GT SCH ×2 (08:45→17:16)
[2017-05-28] MEDS: ACIDOPHILUS/BULGARICUS 1 EACH TAB.CHEW GT SCH ×3 (08:45→17:16)
[2017-05-28] MEDS: PROSOURCE / PROSTAT (PYXIS) 30 ML UDC GT SCH ×2 (08:45→17:16)
[2017-05-28] MEDS: BALM TP SCH ×2 (08:45→21:37)
[2017-05-28] MEDS: ASPIRIN 81 MG TAB.CHEW GT SCH (08:45)
[2017-05-28] MEDS: VITAMINS A AND D 56.7 GM TUBE TP SCH ×2 (08:46→21:37)
[2017-05-28] MEDS: Z GUARD REMEDY 4 OZ OINT TP SCH ×2 (08:46→21:37)
--- NOTE | 2017-05-28 09:30 | NUR ---
Received a call from Arthur ([employer]- ; fax: [phone]) who stated that he will be sending the paperwork that needs to be completed for the resident's customized wheelchair. He will fax to fax number of [phone]. Addendum: 05/29/17 at 0858 by BONITA MITCHELL will have resident's primary care physician Dr. Montaño sign ppwk and will fax back when completed.
--- NOTE | 2017-05-28 11:49 | NUR ---
Called Dr. Lance for neurology consult and left message with Lis.
--- NOTE | 2017-05-28 13:30 | NUR ---
Dr. Lance called and verified the seizure medications that pt is currently taking. She said she already saw the pt yesterday and she would like to speak with the sister. Gave her the phone number of Beckie.
[2017-05-28] MEDS: GLYTROL 1,000 ML BAG GT PRN (17:25)
[2017-05-28 20:05] VITALS: BP 134/78
[2017-05-28] MEDS: MULTIVIT, IRON, MIN NO. 8, FA 1 TAB GT SCH (20:32)
[2017-05-28] MEDS: SENNOSIDES 8.6 MG TABLET GT SCH (20:32)
[2017-05-28] MEDS: ASCORBIC ACID 500 MG TABLET GT SCH (20:32)
[2017-05-29] MEDS: ALBUTEROL FS 2.5 MG/3 ML VIAL.NEB NEB SCH ×4 (01:39→19:49)
[2017-05-29] MEDS: DEXILANT 30 MG GT SCH (05:47)
[2017-05-29] MEDS: INSULIN REGULAR, HUMAN 100 UNIT/ML 3 ML VIAL SQ PRN (05:47)
[2017-05-29] MEDS: BLOOD SUGAR DIAGNOSTIC 1 EACH STRIP IN SCH ×2 (05:47→17:52)
[2017-05-29 07:56] VITALS: BP 126/79
[2017-05-29] MEDS: TRILEPTAL GT SCH ×2 (09:46→21:05)
[2017-05-29] MEDS: ASPIRIN 81 MG TAB.CHEW GT SCH (09:46)
[2017-05-29] MEDS: LEVETIRACETAM SOL (5 ML) 100 MG/ML UDC GT SCH ×2 (09:47→21:05)
[2017-05-29] MEDS: PROSOURCE / PROSTAT (PYXIS) 30 ML UDC GT SCH ×2 (09:47→17:52)
[2017-05-29] MEDS: ACIDOPHILUS/BULGARICUS 1 EACH TAB.CHEW GT SCH ×3 (09:47→17:52)
[2017-05-29] MEDS: CALCIUM CARBONATE 500 MG TAB.CHEW GT SCH ×2 (09:47→17:52)
[2017-05-29] MEDS: VITAMINS A AND D 56.7 GM TUBE TP SCH ×2 (09:48→21:05)
[2017-05-29] MEDS: Z GUARD REMEDY 4 OZ OINT TP SCH ×2 (09:48→21:05)
[2017-05-29] MEDS: BALM TP SCH ×2 (09:48→21:06)
[2017-05-29] MEDS: HYDROGEN PEROXIDE 480 ML BOTTLE TP SCH ×2 (11:00→21:05)
[2017-05-29] MEDS: GLYTROL 1,000 ML BAG GT PRN (18:53)
[2017-05-29] MEDS: MULTIVIT, IRON, MIN NO. 8, FA 1 TAB GT SCH (21:05)
[2017-05-29] MEDS: ASCORBIC ACID 500 MG TABLET GT SCH (21:05)
[2017-05-29] MEDS: SENNOSIDES 8.6 MG TABLET GT SCH (21:05)
[2017-05-30] MEDS: ALBUTEROL FS 2.5 MG/3 ML VIAL.NEB NEB SCH ×4 (02:04→20:16)
[2017-05-30] MEDS: MAGNESIUM HYDROXIDE 30 ML UDC GT PRN (05:34)
[2017-05-30] MEDS: BLOOD SUGAR DIAGNOSTIC 1 EACH STRIP IN SCH (05:34)
[2017-05-30] MEDS: DEXILANT 30 MG GT SCH (05:34)
[2017-05-30] MEDS: INSULIN REGULAR, HUMAN 100 UNIT/ML 3 ML VIAL SQ PRN (05:35)
[2017-05-30] MEDS: BISACODYL SUPP (10 MG) 10 MG/SUPP.RECT SUPP.RECT RC PRN (07:04)
[2017-05-30 07:28] VITALS: BP 117/80
[2017-05-30] MEDS: TRILEPTAL GT SCH ×2 (09:03→21:42)
[2017-05-30] MEDS: ASPIRIN 81 MG TAB.CHEW GT SCH (09:03)
[2017-05-30] MEDS: LEVETIRACETAM SOL (5 ML) 100 MG/ML UDC GT SCH ×2 (09:04→21:42)
[2017-05-30] MEDS: BALM TP SCH ×2 (09:04→21:42)
[2017-05-30] MEDS: CALCIUM CARBONATE 500 MG TAB.CHEW GT SCH (09:04)
[2017-05-30] MEDS: ACIDOPHILUS/BULGARICUS 1 EACH TAB.CHEW GT SCH ×2 (09:04→12:22)
[2017-05-30] MEDS: Z GUARD REMEDY 4 OZ OINT TP SCH ×2 (09:04→21:42)
[2017-05-30] MEDS: HYDROGEN PEROXIDE 480 ML BOTTLE TP SCH ×2 (09:04→21:42)
[2017-05-30] MEDS: VITAMINS A AND D 56.7 GM TUBE TP SCH ×2 (09:04→21:42)
[2017-05-30] MEDS: PROSOURCE / PROSTAT (PYXIS) 30 ML UDC GT SCH (09:04)
[2017-05-30 09:34] LABS: APPEARANCE,URINE SL CLOUDY (CLEAR); BILIRUBIN,URINE NEGATIVE (NEGATIVE); BLOOD, URINE 1+ Ery/uL (NEGATIVE); COLOR,URINE YELLOW (YELLOW); KETONES,URINE NEGATIVE (NEGATIVE); LEUKOCYTE ESTERASE ,URINE 3+ (NEGATIVE); NITRITE, URINE POSITIVE (NEGATIVE); PROTEIN,URINE 2+ mg/dl (NEGATIVE); UGLUCOSE NEGATIVE (NEGATIVE); UROBILINOGEN,URINE 0.2 EU/dL (0.2)
[2017-05-30 09:40] LABS: BACTERIA,URINE Few /HPF (None Seen); SQUAMOUS EPITHELIAL CELL,UR Moderate /HPF (None Seen); WBC,URINE 21-50 /HPF (0-3)
--- NOTE | 2017-05-30 09:40 | NUR ---
Seen and examined by Dr. Montaño. Informed MD that resident was seen by Dr. Lance with order to do UA and CS, result pending. Reported also that patient has low grade temperature last night in the low 99's. Current Temp 97.4, No new order given.
[2017-05-30] MEDS: GLYTROL 1,000 ML BAG GT PRN (11:54)
[2017-05-30 20:20] VITALS: BP 136/73
[2017-05-30] MEDS: SENNOSIDES 8.6 MG TABLET GT SCH (21:42)
[2017-05-30] MEDS: MULTIVIT, IRON, MIN NO. 8, FA 1 TAB GT SCH (21:42)
[2017-05-30] MEDS: ASCORBIC ACID 500 MG TABLET GT SCH (21:42)
[2017-05-31] MEDS: GLYTROL 1,000 ML BAG GT PRN (01:48)
[2017-05-31] MEDS: ALBUTEROL FS 2.5 MG/3 ML VIAL.NEB NEB SCH ×4 (02:21→19:17)
[2017-05-31] MEDS: DEXILANT 30 MG GT SCH (05:41)
[2017-05-31] MEDS: BLOOD SUGAR DIAGNOSTIC 1 EACH STRIP IN SCH ×3 (05:45→17:50)
[2017-05-31] MEDS: INSULIN REGULAR, HUMAN 100 UNIT/ML 3 ML VIAL SQ PRN ×2 (05:46→17:51)
[2017-05-31 07:54] VITALS: BP 111/63
[2017-05-31] MEDS: BALM TP SCH ×2 (09:00→21:39)
[2017-05-31] MEDS: ACIDOPHILUS/BULGARICUS 1 EACH TAB.CHEW GT SCH ×3 (09:00→17:13)
[2017-05-31] MEDS: Z GUARD REMEDY 4 OZ OINT TP SCH ×2 (09:00→21:39)
[2017-05-31] MEDS: CALCIUM CARBONATE 500 MG TAB.CHEW GT SCH ×2 (09:00→17:13)
[2017-05-31] MEDS: HYDROGEN PEROXIDE 480 ML BOTTLE TP SCH ×2 (09:00→21:39)
[2017-05-31] MEDS: LEVETIRACETAM SOL (5 ML) 100 MG/ML UDC GT SCH ×2 (09:00→21:38)
[2017-05-31] MEDS: TRILEPTAL GT SCH ×2 (09:00→21:38)
[2017-05-31] MEDS: VITAMINS A AND D 56.7 GM TUBE TP SCH ×2 (09:00→21:39)
[2017-05-31] MEDS: PROSOURCE / PROSTAT (PYXIS) 30 ML UDC GT SCH ×2 (09:00→17:13)
[2017-05-31] MEDS: ASPIRIN 81 MG TAB.CHEW GT SCH (09:00)
[2017-05-31 20:00] VITALS: BP 100/59
[2017-05-31] MEDS: ASCORBIC ACID 500 MG TABLET GT SCH (21:38)
[2017-05-31] MEDS: SENNOSIDES 8.6 MG TABLET GT SCH (21:38)
[2017-05-31] MEDS: MULTIVIT, IRON, MIN NO. 8, FA 1 TAB GT SCH (21:38)
[2017-05-31] MEDS: HYDROGEL DRESSING 90 GM TUBE TP SCH (21:43)
[2017-06-01] MEDS: ALBUTEROL FS 2.5 MG/3 ML VIAL.NEB NEB SCH ×4 (01:45→19:30)
[2017-06-01] MEDS: DEXILANT 30 MG GT SCH (05:53)
[2017-06-01] MEDS: BLOOD SUGAR DIAGNOSTIC 1 EACH STRIP IN SCH ×2 (05:54→17:51)
[2017-06-01 07:38] VITALS: BP 130/52
[2017-06-01] MEDS: BALM TP SCH ×2 (09:00→21:04)
[2017-06-01] MEDS: ASPIRIN 81 MG TAB.CHEW GT SCH (09:00)
[2017-06-01] MEDS: LEVETIRACETAM SOL (5 ML) 100 MG/ML UDC GT SCH ×2 (09:00→21:02)
[2017-06-01] MEDS: Z GUARD REMEDY 4 OZ OINT TP SCH ×2 (09:00→21:04)
[2017-06-01] MEDS: CALCIUM CARBONATE 500 MG TAB.CHEW GT SCH ×2 (09:00→17:29)
[2017-06-01] MEDS: VITAMINS A AND D 56.7 GM TUBE TP SCH ×2 (09:00→21:04)
[2017-06-01] MEDS: HYDROGEL DRESSING 90 GM TUBE TP SCH ×2 (09:00→21:04)
[2017-06-01] MEDS: HYDROGEN PEROXIDE 480 ML BOTTLE TP SCH ×2 (09:00→21:04)
[2017-06-01] MEDS: PROSOURCE / PROSTAT (PYXIS) 30 ML UDC GT SCH ×2 (09:00→17:29)
[2017-06-01] MEDS: ACIDOPHILUS/BULGARICUS 1 EACH TAB.CHEW GT SCH ×3 (09:00→17:29)
[2017-06-01] MEDS: TRILEPTAL GT SCH ×2 (09:00→21:02)
[2017-06-01] MEDS: CEFTRIAXONE 1 G in IV D5W 50 ML IV SCH (09:00)
--- NOTE | 2017-06-01 10:21 | NUR ---
Notified Dr. Montaño that pt is a hardstick and pt's sister does not want a midline or PICC line for the pt. Pt's sister prefers for pt to have a peripheral IV line on the feet instead. Received order to place a peripheral IV line on the lower extremities due to poor venous access. Notified pt's sister that Dr. Montaño ordered an IV antibiotic, final urine culture result still pending, and IV line is on the foot. Pt's sister expressed appreciation.
--- NOTE | 2017-06-01 14:00 | NUR ---
maher catheter changed as ordered to Fr.18x10. flowing good to a yellow urine, no s/s of pain on the site, no hematuria noted.
[2017-06-01] MEDS: INSULIN REGULAR, HUMAN 100 UNIT/ML 3 ML VIAL SQ PRN (17:55)
--- NOTE | 2017-06-01 18:53 | NUR ---
Urine culture result relayed to Dr. Montaño. The result did not show the sensitivity for Strep agalactiae group B. Called [facility] microbiology and spoke with Tamika. She said the staff who does the C & S is not there, but will be there around 6 or 7 am tomorrow. Left message with her. She said they will call back tomorrow. Notified Dr. Montaño. Urine culture showed E coli ESBL, Pseudomonas aeruginosa, and Strep agalactiae group B. Pt currently on Ceftriaxone. E coli ESBL resistant to Ceftriaxone.
[2017-06-01 19:30] VITALS: BP 123/75
[2017-06-01] MEDS: SENNOSIDES 8.6 MG TABLET GT SCH (21:02)
[2017-06-01] MEDS: MULTIVIT, IRON, MIN NO. 8, FA 1 TAB GT SCH (21:03)
[2017-06-01] MEDS: ASCORBIC ACID 500 MG TABLET GT SCH (21:04)
[2017-06-02] MEDS: ALBUTEROL FS 2.5 MG/3 ML VIAL.NEB NEB SCH ×4 (01:30→19:49)
[2017-06-02] MEDS: BLOOD SUGAR DIAGNOSTIC 1 EACH STRIP IN SCH ×2 (05:12→18:00)
[2017-06-02] MEDS: DEXILANT 30 MG GT SCH (05:12)
[2017-06-02 07:35] VITALS: BP 133/70
[2017-06-02] MEDS: LEVETIRACETAM SOL (5 ML) 100 MG/ML UDC GT SCH ×2 (08:31→20:15)
[2017-06-02] MEDS: PROSOURCE / PROSTAT (PYXIS) 30 ML UDC GT SCH ×2 (08:31→16:41)
[2017-06-02] MEDS: ACIDOPHILUS/BULGARICUS 1 EACH TAB.CHEW GT SCH ×3 (08:31→16:41)
[2017-06-02] MEDS: BALM TP SCH ×2 (08:31→20:17)
[2017-06-02] MEDS: CALCIUM CARBONATE 500 MG TAB.CHEW GT SCH ×2 (08:31→16:41)
[2017-06-02] MEDS: ASPIRIN 81 MG TAB.CHEW GT SCH (08:31)
[2017-06-02] MEDS: HYDROGEN PEROXIDE 480 ML BOTTLE TP SCH ×2 (08:31→20:17)
[2017-06-02] MEDS: TRILEPTAL GT SCH ×2 (08:31→20:15)
[2017-06-02] MEDS: HYDROGEL DRESSING 90 GM TUBE TP SCH ×2 (08:31→20:16)
[2017-06-02] MEDS: VITAMINS A AND D 56.7 GM TUBE TP SCH ×2 (08:32→20:17)
[2017-06-02] MEDS: Z GUARD REMEDY 4 OZ OINT TP SCH ×2 (08:32→20:17)
--- NOTE | 2017-06-02 09:03 | NUR ---
Called [facility] and spoke with Digna. Asked him about the sensitivity for Strep agalactiae group B. He said they will call back.
[2017-06-02] MEDS: CEFTRIAXONE 1 G in IV D5W 50 ML IV SCH (09:59)
--- NOTE | 2017-06-02 11:52 | NUR ---
Received call from Digna ([facility] microbiology). He said they do not do sensitivities for Strep agalactiae in the urine, only if it is in the blood. Relayed urine culture result to Dr. Hathaway (compensation and benefits advisor today).
--- NOTE | 2017-06-02 12:25 | NUR ---
Dr. Hathaway ordered Meropenem 1 gm IV q 12 hours for 10 days for UTI. He also ordered to give Ceftriaxone for a total of 10 days. Notified Beckie.
[2017-06-02] MEDS: MEROPENEM 1 G in IV NS 0.9% 100 ML IV SCH (13:00)
[2017-06-02] MEDS: INSULIN REGULAR, HUMAN 100 UNIT/ML 3 ML VIAL SQ PRN (18:00)
[2017-06-02 19:29] VITALS: BP 118/75
[2017-06-02] MEDS: SENNOSIDES 8.6 MG TABLET GT SCH (20:15)
[2017-06-02] MEDS: ASCORBIC ACID 500 MG TABLET GT SCH (20:16)
[2017-06-02] MEDS: MULTIVIT, IRON, MIN NO. 8, FA 1 TAB GT SCH (20:16)
[2017-06-03] MEDS: ALBUTEROL FS 2.5 MG/3 ML VIAL.NEB NEB SCH ×4 (00:30→19:03)
[2017-06-03] MEDS: GLYTROL 1,000 ML BAG GT PRN ×2 (00:41→21:08)
--- NOTE | 2017-06-03 01:00 | NUR ---
RN NOTES Meropenem 1 gm IV given as ordered, with no A/R noted.
[2017-06-03] MEDS: DEXILANT 30 MG GT SCH (05:16)
[2017-06-03] MEDS: BLOOD SUGAR DIAGNOSTIC 1 EACH STRIP IN SCH ×2 (05:16→18:00)
[2017-06-03 07:41] VITALS: BP 131/70
[2017-06-03] MEDS: CEFTRIAXONE 1 G in IV D5W 50 ML IV SCH (09:06)
[2017-06-03] MEDS: PROSOURCE / PROSTAT (PYXIS) 30 ML UDC GT SCH ×2 (09:09→17:01)
[2017-06-03] MEDS: HYDROGEL DRESSING 90 GM TUBE TP SCH ×2 (09:09→21:01)
[2017-06-03] MEDS: TRILEPTAL GT SCH ×2 (09:09→20:58)
[2017-06-03] MEDS: LEVETIRACETAM SOL (5 ML) 100 MG/ML UDC GT SCH ×2 (09:09→20:58)
[2017-06-03] MEDS: ASPIRIN 81 MG TAB.CHEW GT SCH (09:09)
[2017-06-03] MEDS: CALCIUM CARBONATE 500 MG TAB.CHEW GT SCH ×2 (09:09→17:01)
[2017-06-03] MEDS: ACIDOPHILUS/BULGARICUS 1 EACH TAB.CHEW GT SCH ×3 (09:09→17:01)
[2017-06-03] MEDS: VITAMINS A AND D 56.7 GM TUBE TP SCH ×2 (09:10→21:02)
[2017-06-03] MEDS: Z GUARD REMEDY 4 OZ OINT TP SCH ×2 (09:10→21:02)
[2017-06-03] MEDS: BALM TP SCH ×2 (09:10→21:01)
[2017-06-03] MEDS: HYDROGEN PEROXIDE 480 ML BOTTLE TP SCH ×2 (09:10→21:01)
--- NOTE | 2017-06-03 10:36 | NUR ---
Received completed wheelchair request signed by Dr. Montaño. Faxed back to Arthur from [employer] (fax: [phone] tel: [phone]). Addendum: 06/03/17 at 1056 by BONITA MITCHELL Notified Arthur that fax was sent.
[2017-06-03] MEDS: MEROPENEM 1 G in IV NS 0.9% 100 ML IV SCH ×2 (16:12→16:13)
--- NOTE | 2017-06-03 17:15 | NUR ---
Received a call from [facility] pharmacy,spoke to gricel ,told that Rocephin IV discontinued as per albaro Bee.noted and carried out.
[2017-06-03] MEDS: INSULIN REGULAR, HUMAN 100 UNIT/ML 3 ML VIAL SQ PRN (18:32)
[2017-06-03 19:51] VITALS: BP 122/78
[2017-06-03] MEDS: SENNOSIDES 8.6 MG TABLET GT SCH (20:58)
[2017-06-03] MEDS: MULTIVIT, IRON, MIN NO. 8, FA 1 TAB GT SCH (21:00)
[2017-06-03] MEDS: ASCORBIC ACID 500 MG TABLET GT SCH (21:00)
[2017-06-03] MEDS: MAGNESIUM HYDROXIDE 30 ML UDC GT PRN (21:08)
[2017-06-04] MEDS: MEROPENEM 1 G in IV NS 0.9% 100 ML IV SCH ×2 (01:05→13:00)
[2017-06-04] MEDS: ALBUTEROL FS 2.5 MG/3 ML VIAL.NEB NEB SCH ×4 (02:47→19:50)
--- NOTE | 2017-06-04 04:04 | NUR ---
RT Pt trach remains on vent on ordered settings. pt appears comfortable w/ no resp distress noted. sx prn. Addendum: 06/04/17 at 0405 by ASHLI QUEZADA RT Amended: Links added.
[2017-06-04] MEDS: BLOOD SUGAR DIAGNOSTIC 1 EACH STRIP IN SCH ×2 (05:22→17:56)
[2017-06-04] MEDS: DEXILANT 30 MG GT SCH (05:22)
[2017-06-04] MEDS: INSULIN REGULAR, HUMAN 100 UNIT/ML 3 ML VIAL SQ PRN (05:23)
[2017-06-04] MEDS: BISACODYL SUPP (10 MG) 10 MG/SUPP.RECT SUPP.RECT RC PRN (06:26)
[2017-06-04 07:25] VITALS: BP 134/83
[2017-06-04] MEDS: ACIDOPHILUS/BULGARICUS 1 EACH TAB.CHEW GT SCH ×3 (09:49→17:56)
[2017-06-04] MEDS: BALM TP SCH ×2 (09:49→21:24)
[2017-06-04] MEDS: ASPIRIN 81 MG TAB.CHEW GT SCH (09:49)
[2017-06-04] MEDS: LEVETIRACETAM SOL (5 ML) 100 MG/ML UDC GT SCH ×2 (09:49→21:24)
[2017-06-04] MEDS: VITAMINS A AND D 56.7 GM TUBE TP SCH ×2 (09:49→21:24)
[2017-06-04] MEDS: HYDROGEN PEROXIDE 480 ML BOTTLE TP SCH ×2 (09:49→21:24)
[2017-06-04] MEDS: HYDROGEL DRESSING 90 GM TUBE TP SCH ×2 (09:49→21:24)
[2017-06-04] MEDS: CALCIUM CARBONATE 500 MG TAB.CHEW GT SCH ×2 (09:49→17:56)
[2017-06-04] MEDS: Z GUARD REMEDY 4 OZ OINT TP SCH ×2 (09:49→21:24)
[2017-06-04] MEDS: PROSOURCE / PROSTAT (PYXIS) 30 ML UDC GT SCH ×2 (09:49→17:56)
[2017-06-04] MEDS: TRILEPTAL GT SCH ×2 (09:49→21:24)
[2017-06-04] MEDS: GLYTROL 1,000 ML BAG GT PRN (15:46)
[2017-06-04 20:06] VITALS: BP 109/69
[2017-06-04] MEDS: MULTIVIT, IRON, MIN NO. 8, FA 1 TAB GT SCH (21:24)
[2017-06-04] MEDS: ASCORBIC ACID 500 MG TABLET GT SCH (21:24)
[2017-06-04] MEDS: SENNOSIDES 8.6 MG TABLET GT SCH (21:24)
[2017-06-05] MEDS: MEROPENEM 1 G in IV NS 0.9% 100 ML IV SCH ×2 (00:44→13:00)
[2017-06-05] MEDS: ALBUTEROL FS 2.5 MG/3 ML VIAL.NEB NEB SCH ×4 (01:30→19:34)
[2017-06-05] MEDS: INSULIN REGULAR, HUMAN 100 UNIT/ML 3 ML VIAL SQ PRN (05:23)
[2017-06-05] MEDS: DEXILANT 30 MG GT SCH (05:23)
[2017-06-05] MEDS: BLOOD SUGAR DIAGNOSTIC 1 EACH STRIP IN SCH ×2 (05:23→18:00)
[2017-06-05 07:21] VITALS: BP 130/80
[2017-06-05] MEDS: BALM TP SCH ×2 (09:00→21:19)
[2017-06-05] MEDS: LEVETIRACETAM SOL (5 ML) 100 MG/ML UDC GT SCH ×2 (09:00→21:19)
[2017-06-05] MEDS: VITAMINS A AND D 56.7 GM TUBE TP SCH ×2 (09:00→21:19)
[2017-06-05] MEDS: TRILEPTAL GT SCH ×2 (09:00→21:19)
[2017-06-05] MEDS: ASPIRIN 81 MG TAB.CHEW GT SCH (09:00)
[2017-06-05] MEDS: ACIDOPHILUS/BULGARICUS 1 EACH TAB.CHEW GT SCH ×3 (09:00→16:40)
[2017-06-05] MEDS: HYDROGEL DRESSING 90 GM TUBE TP SCH ×2 (09:00→21:19)
[2017-06-05] MEDS: CALCIUM CARBONATE 500 MG TAB.CHEW GT SCH ×2 (09:00→16:40)
[2017-06-05] MEDS: HYDROGEN PEROXIDE 480 ML BOTTLE TP SCH ×2 (09:00→21:19)
[2017-06-05] MEDS: PROSOURCE / PROSTAT (PYXIS) 30 ML UDC GT SCH ×2 (09:00→16:40)
[2017-06-05] MEDS: Z GUARD REMEDY 4 OZ OINT TP SCH ×2 (09:00→21:19)
[2017-06-05 19:49] VITALS: BP 106/72
[2017-06-05] MEDS: ASCORBIC ACID 500 MG TABLET GT SCH (21:19)
[2017-06-05] MEDS: SENNOSIDES 8.6 MG TABLET GT SCH (21:19)
[2017-06-05] MEDS: MULTIVIT, IRON, MIN NO. 8, FA 1 TAB GT SCH (21:19)
[2017-06-06] MEDS: MEROPENEM 1 G in IV NS 0.9% 100 ML IV SCH ×2 (01:23→13:00)
[2017-06-06] MEDS: ALBUTEROL FS 2.5 MG/3 ML VIAL.NEB NEB SCH ×4 (02:21→19:37)
[2017-06-06] MEDS: DEXILANT 30 MG GT SCH (05:08)
[2017-06-06] MEDS: INSULIN REGULAR, HUMAN 100 UNIT/ML 3 ML VIAL SQ PRN (05:22)
[2017-06-06] MEDS: BLOOD SUGAR DIAGNOSTIC 1 EACH STRIP IN SCH ×2 (05:22→17:26)
--- NOTE | 2017-06-06 05:26 | NUR ---
RT PT RECEIVED ON [facility] VENT WITH NOTED SETTING PER MD ORDERS. NO SOB OR RESP DISTRESS NOTED ON SHIFT. TX GIVEN ORDERED WITH NO ADVERSE REACTION. Addendum: 06/06/17 at 0527 by RONNIE LINDO RT Amended: Links added.
[2017-06-06] MEDS: GLYTROL 1,000 ML BAG GT PRN ×2 (06:14→20:40)
[2017-06-06 08:00] VITALS: BP 135/74
[2017-06-06] MEDS: BALM TP SCH ×2 (09:00→20:32)
[2017-06-06] MEDS: TRILEPTAL GT SCH ×2 (09:00→20:31)
[2017-06-06] MEDS: PROSOURCE / PROSTAT (PYXIS) 30 ML UDC GT SCH ×2 (09:00→17:20)
[2017-06-06] MEDS: LEVETIRACETAM SOL (5 ML) 100 MG/ML UDC GT SCH ×2 (09:00→20:31)
[2017-06-06] MEDS: Z GUARD REMEDY 4 OZ OINT TP SCH ×2 (09:00→20:32)
[2017-06-06] MEDS: CALCIUM CARBONATE 500 MG TAB.CHEW GT SCH ×2 (09:00→17:20)
[2017-06-06] MEDS: ACIDOPHILUS/BULGARICUS 1 EACH TAB.CHEW GT SCH ×3 (09:00→17:20)
[2017-06-06] MEDS: HYDROGEN PEROXIDE 480 ML BOTTLE TP SCH ×2 (09:00→20:32)
[2017-06-06] MEDS: ASPIRIN 81 MG TAB.CHEW GT SCH (09:00)
[2017-06-06] MEDS: VITAMINS A AND D 56.7 GM TUBE TP SCH ×2 (09:00→20:32)
[2017-06-06] MEDS: HYDROGEL DRESSING 90 GM TUBE TP SCH ×2 (09:00→20:32)
--- NOTE | 2017-06-06 16:00 | NUR ---
Resident's sister Beckie visiting, stated " I am really concern about her secretions and I would like the doctor to know" Dr. Felix was notified of family's request to cx sputum, sputum pale yellow in color but thin. Beckie claims that it was thick a couple of days ago. Patient currently on ATB for ESBL of urine, no adverse reaction noted. Dr. Felix said "No need", family informed. Beckie acknowledged sputum is much thinner than it was last week. Family is happy because patient is responding to command.
--- NOTE | 2017-06-06 19:37 | NUR ---
PT RECEIVED ON THE [facility] VENT WITH NOTED SETTING PER MD ORDERS. NO SOB OR RESP DISTRESS NOTED ON SHIFT. TX GIVEN ORDERED WITH NO ADVERSE REACTION. VENT PLUGGED INTO RED OUTLET, AMBU BAG AND BACK UP TRACH BEDSIDE. ALARMS ARE SET AND AUDIBLE PER POLICY. WILL CONTINUE TO MONITOR. Addendum: 06/07/17 at 0511 by LADAN WICK RT Amended: Links added.
[2017-06-06 20:18] VITALS: BP 119/66
[2017-06-06] MEDS: SENNOSIDES 8.6 MG TABLET GT SCH (20:31)
[2017-06-06] MEDS: MULTIVIT, IRON, MIN NO. 8, FA 1 TAB GT SCH (20:32)
[2017-06-06] MEDS: ASCORBIC ACID 500 MG TABLET GT SCH (20:32)
[2017-06-07] MEDS: MEROPENEM 1 G in IV NS 0.9% 100 ML IV SCH ×2 (01:00→14:21)
[2017-06-07] MEDS: ALBUTEROL FS 2.5 MG/3 ML VIAL.NEB NEB SCH ×4 (01:34→19:30)
[2017-06-07] MEDS: DEXILANT 30 MG GT SCH (06:13)
[2017-06-07] MEDS: BLOOD SUGAR DIAGNOSTIC 1 EACH STRIP IN SCH ×2 (06:13→17:30)
[2017-06-07] MEDS: INSULIN REGULAR, HUMAN 100 UNIT/ML 3 ML VIAL SQ PRN (06:14)
[2017-06-07 09:09] VITALS: BP 126/74
[2017-06-07] MEDS: ASPIRIN 81 MG TAB.CHEW GT SCH (09:42)
[2017-06-07] MEDS: PROSOURCE / PROSTAT (PYXIS) 30 ML UDC GT SCH ×2 (09:43→17:16)
[2017-06-07] MEDS: LEVETIRACETAM SOL (5 ML) 100 MG/ML UDC GT SCH ×2 (09:43→21:08)
[2017-06-07] MEDS: VITAMINS A AND D 56.7 GM TUBE TP SCH ×2 (09:43→21:08)
[2017-06-07] MEDS: CALCIUM CARBONATE 500 MG TAB.CHEW GT SCH ×2 (09:43→17:16)
[2017-06-07] MEDS: Z GUARD REMEDY 4 OZ OINT TP SCH ×2 (09:43→21:08)
[2017-06-07] MEDS: ACIDOPHILUS/BULGARICUS 1 EACH TAB.CHEW GT SCH ×3 (09:43→17:11)
[2017-06-07] MEDS: HYDROGEN PEROXIDE 480 ML BOTTLE TP SCH ×2 (09:43→21:08)
[2017-06-07] MEDS: HYDROGEL DRESSING 90 GM TUBE TP SCH ×2 (09:43→21:08)
[2017-06-07] MEDS: BALM TP SCH ×2 (09:43→21:08)
[2017-06-07] MEDS: TRILEPTAL GT SCH ×2 (09:43→21:08)
[2017-06-07] MEDS: GLYTROL 1,000 ML BAG GT PRN (14:50)
[2017-06-07 20:27] VITALS: BP 104/68
--- NOTE | 2017-06-07 20:42 | NUR ---
PT RECEIVED ON [facility] VENT WITH NOTED SETTING PER MD ORDERS. NO SOB OR RESP DISTRESS NOTED ON SHIFT. TX GIVEN ORDERED WITH NO ADVERSE REACTION. VENT PLUGGED INTO RED OUTLET, AMBU BAG AND BACK UP TRACH BEDSIDE. ALARMS ARE SET AND AUDIBLE PER POLICY. WILL CONTINUE TO MONITOR. Addendum: 06/08/17 at 0539 by LADAN WICK RT Amended: Links added.
[2017-06-07] MEDS: ASCORBIC ACID 500 MG TABLET GT SCH (21:08)
[2017-06-07] MEDS: MULTIVIT, IRON, MIN NO. 8, FA 1 TAB GT SCH (21:08)
[2017-06-07] MEDS: SENNOSIDES 8.6 MG TABLET GT SCH (21:08)
[2017-06-08] MEDS: ALBUTEROL FS 2.5 MG/3 ML VIAL.NEB NEB SCH ×4 (00:36→19:40)
[2017-06-08] MEDS: MEROPENEM 1 G in IV NS 0.9% 100 ML IV SCH ×2 (01:00→13:32)
[2017-06-08] MEDS: BLOOD SUGAR DIAGNOSTIC 1 EACH STRIP IN SCH ×2 (06:16→17:40)
[2017-06-08] MEDS: DEXILANT 30 MG GT SCH (06:16)
[2017-06-08 08:21] VITALS: BP 140/74
[2017-06-08] MEDS: ASPIRIN 81 MG TAB.CHEW GT SCH (09:29)
[2017-06-08] MEDS: CALCIUM CARBONATE 500 MG TAB.CHEW GT SCH ×2 (09:29→17:39)
[2017-06-08] MEDS: PROSOURCE / PROSTAT (PYXIS) 30 ML UDC GT SCH ×2 (09:29→17:39)
[2017-06-08] MEDS: LEVETIRACETAM SOL (5 ML) 100 MG/ML UDC GT SCH ×2 (09:29→21:31)
[2017-06-08] MEDS: TRILEPTAL GT SCH ×2 (09:29→21:31)
[2017-06-08] MEDS: ACIDOPHILUS/BULGARICUS 1 EACH TAB.CHEW GT SCH ×3 (09:29→17:39)
[2017-06-08] MEDS: HYDROGEN PEROXIDE 480 ML BOTTLE TP SCH ×2 (09:29→21:31)
[2017-06-08] MEDS: BALM TP SCH ×2 (09:29→21:31)
[2017-06-08] MEDS: HYDROGEL DRESSING 90 GM TUBE TP SCH ×2 (09:29→21:31)
[2017-06-08] MEDS: Z GUARD REMEDY 4 OZ OINT TP SCH ×2 (09:30→21:31)
[2017-06-08] MEDS: VITAMINS A AND D 56.7 GM TUBE TP SCH ×2 (09:30→21:32)
--- NOTE | 2017-06-08 11:00 | NUR ---
seen the pt and aware about the isolation for ESBL in urine and no new orders noted.
[2017-06-08] MEDS: GLYTROL 1,000 ML BAG GT PRN (12:03)
--- NOTE | 2017-06-08 13:00 | NUR ---
Found open skin in left underarm.Skin treatment initiated as clean with ns,pat dry,apply triple antibiotics and leave open to air x7days.
[2017-06-08] MEDS: NEOMY SULF/BACITRAC ZN/POLY 15 GM TUBE TP SCH (17:40)
--- NOTE | 2017-06-08 19:30 | NUR ---
PT RECEIVED ON THE [facility] VENT WITH NOTED SETTING PER MD ORDERS. NO SOB OR RESP DISTRESS NOTED ON SHIFT. TX GIVEN ORDERED WITH NO ADVERSE REACTION. VENT PLUGGED INTO RED OUTLET, AMBU BAG AND BACK UP TRACH BEDSIDE. ALARMS ARE SET AND AUDIBLE PER POLICY. WILL CONTINUE TO MONITOR. Addendum: 06/09/17 at 0344 by LADAN WICK RT Amended: Links added.
[2017-06-08] MEDS: MULTIVIT, IRON, MIN NO. 8, FA 1 TAB GT SCH (21:31)
[2017-06-08] MEDS: SENNOSIDES 8.6 MG TABLET GT SCH (21:31)
[2017-06-08] MEDS: ASCORBIC ACID 500 MG TABLET GT SCH (21:31)
[2017-06-08 23:13] VITALS: BP 106/75
[2017-06-09] MEDS: ALBUTEROL FS 2.5 MG/3 ML VIAL.NEB NEB SCH ×2 (00:35→08:20)
[2017-06-09] MEDS: MEROPENEM 1 G in IV NS 0.9% 100 ML IV SCH (01:00)
[2017-06-09] MEDS: BLOOD SUGAR DIAGNOSTIC 1 EACH STRIP IN SCH (05:57)
[2017-06-09] MEDS: DEXILANT 30 MG GT SCH (05:57)
[2017-06-09 08:44] VITALS: BP 111/66
[2017-06-09] MEDS: BALM TP SCH (09:29)
[2017-06-09] MEDS: PROSOURCE / PROSTAT (PYXIS) 30 ML UDC GT SCH (09:29)
[2017-06-09] MEDS: ACIDOPHILUS/BULGARICUS 1 EACH TAB.CHEW GT SCH (09:29)
[2017-06-09] MEDS: CALCIUM CARBONATE 500 MG TAB.CHEW GT SCH (09:29)
[2017-06-09] MEDS: NEOMY SULF/BACITRAC ZN/POLY 15 GM TUBE TP SCH (09:29)
[2017-06-09] MEDS: LEVETIRACETAM SOL (5 ML) 100 MG/ML UDC GT SCH (09:29)
[2017-06-09] MEDS: HYDROGEL DRESSING 90 GM TUBE TP SCH (09:29)
[2017-06-09] MEDS: HYDROGEN PEROXIDE 480 ML BOTTLE TP SCH (09:29)
[2017-06-09] MEDS: TRILEPTAL GT SCH (09:29)
[2017-06-09] MEDS: ASPIRIN 81 MG TAB.CHEW GT SCH (09:29)
[2017-06-09] MEDS: Z GUARD REMEDY 4 OZ OINT TP SCH (09:30)
[2017-06-09] MEDS: VITAMINS A AND D 56.7 GM TUBE TP SCH (09:30)
== END 2017-06-07 23:59 | disposition other institution (70) | DRG 130 ==
LOC: SA 17:52
PROVIDERS: ADMIT Internal Medicine Pulmonary Disease; ATTEND Internal Medicine Pulmonary Disease
PROC: 5A1955Z Respiratory Ventilation, Greater than 96 Consecutive Hours (ICD-10-PCS; principal; 2016-08-08)
DX: J96.21 Acute and chronic respiratory failure with hypoxia (principal); I50.9 Heart failure, unspecified; R53.2 Functional quadriplegia; G40.409 Other generalized epilepsy and epileptic syndromes, not intractable, without status epilepticus; Z99.11 Dependence on respirator [ventilator] status; R13.10 Dysphagia, unspecified; Z93.1 Gastrostomy status; N18.9 Chronic kidney disease, unspecified; I25.10 Atherosclerotic heart disease of native coronary artery without angina pectoris; Z86.61 Personal history of infections of the central nervous system; Z22.322 Carrier or suspected carrier of Methicillin resistant Staphylococcus aureus; Z87.440 Personal history of urinary (tract) infections; Z87.820 Personal history of traumatic brain injury
CPT/HCPCS: 31720; 36415; 36569; 36600; 71010-TC; 72100-TC; 72192-TC; 74000-TC; 80048-TC; 80150; 80185-TC; 80202-TC; 81000-TC; 82272-TC; 82542; 82570-TC; 82962-TC; 83735-TC; 84100-TC; 84146; 84300-TC; 85025-TC; 86580-TC; 86850-TC; 86921-TC; 87070-TC; 87081-TC; 87086-TC; 87186-TC; 93971-TC; 94002; 94002-TC; 94003-TC; 94760-TC; 94762-TC; 94799-TC; 95819-TC; 97003-TC; 97760-TC; 99082-TC; A4216; A4217; A4606; A4623; A6248; A6253; A6402; A7526; J0278; J0692; J0696; J1815; J1953; J2185; J3260; J3370; J7030; J7060; L8501; P9016-BL; Q0163; Q2036; Z7610

== ENCOUNTER 2017-06-08 00:01 | Inpatient (IN) | END 2018-06-07 23:59 | disposition still patient (30) | DRG 130 | DX: J96.11 Chronic respiratory failure with hypoxia (principal); I21.4 Non-ST elevation (NSTEMI) myocardial infarction; E43 Unspecified severe protein-calorie malnutrition; G93.40 Encephalopathy, unspecified; L89.153 Pressure ulcer of sacral region, stage 3; I11.0 Hypertensive heart disease with heart failure; R53.2 Functional quadriplegia; R13.10 Dysphagia, unspecified; D68.59 Other primary thrombophilia; I50.9 Heart failure, unspecified; I95.9 Hypotension, unspecified; E11.22 Type 2 diabetes mellitus with diabetic chronic kidney disease; I13.0 Hypertensive heart and chronic kidney disease with heart failure and stage 1 through stage 4 chronic kidney disease, or unspecified chronic kidney disease; D63.8 Anemia in other chronic diseases classified elsewhere; G40.909 Epilepsy, unspecified, not intractable, without status epilepticus; Z87.820 Personal history of traumatic brain injury; Z99.11 Dependence on respirator [ventilator] status; Z93.0 Tracheostomy status; Z93.1 Gastrostomy status; B35.1 Tinea unguium; D25.9 Leiomyoma of uterus, unspecified; N13.1 Hydronephrosis with ureteral stricture, not elsewhere classified; N18.3 Chronic kidney disease, stage 3 (moderate); Z22.322 Carrier or suspected carrier of Methicillin resistant Staphylococcus aureus; Z86.14 Personal history of Methicillin resistant Staphylococcus aureus infection; Z79.2 Long term (current) use of antibiotics; Z74.01 Bed confinement status; Z93.6 Other artificial openings of urinary tract status; Z87.891 Personal history of nicotine dependence; Z87.440 Personal history of urinary (tract) infections; L60.3 Nail dystrophy; L60.0 Ingrowing nail; R21 Rash and other nonspecific skin eruption; Z88.8 Allergy status to other drugs, medicaments and biological substances; K21.9 Gastro-esophageal reflux disease without esophagitis; I25.10 Atherosclerotic heart disease of native coronary artery without angina pectoris; E61.1 Iron deficiency; E78.5 Hyperlipidemia, unspecified; F09 Unspecified mental disorder due to known physiological condition; E86.0 Dehydration; I25.2 Old myocardial infarction; K57.30 Diverticulosis of large intestine without perforation or abscess without bleeding; K29.70 Gastritis, unspecified, without bleeding; N39.0 Urinary tract infection, site not specified; N83.291 Other ovarian cyst, right side; E66.3 Overweight; Z68.25 Body mass index [BMI] 25.0-25.9, adult; E11.9 Type 2 diabetes mellitus without complications ==

== ENCOUNTER 2018-06-08 | Inpatient (IN) | payer MEDICAID ==
[~2018-06-08] VITALS: Ht 170.2 cm; Wt 74.0 kg
[~2018-06-08] MED LIST changes: -MERO500V IV; +MERO500V21 IV; -OXCA150T GT; +OXCA150T13 GT
[2018-06-09] MEDS: SIMETHICONE SUSP 40 MG/0.6 ML BOTTLE GT SCH ×2 (08:00→20:39)
[2018-06-09] MEDS ORDERED: TUBERCULIN,PURIF.PROT.DERIV. 5 TU/0.1 ML VIAL ID SCH (08:00)
[2018-06-09] MEDS ORDERED: DEXTROSE 50%-WATER 50 ML DISP.SYRIN IV PRN (08:00)
[2018-06-09] MEDS ORDERED: diphenhydrAMINE HCL ELIX 25 MG/10 ML UDC GT PRN (08:00)
[2018-06-09] MEDS: TRILEPTAL GT SCH ×2 (09:00→20:39)
[2018-06-09] MEDS: MULTIVIT W/MINERALS 1 TAB TABLET GT SCH (09:00)
[2018-06-09] MEDS: ACIDOPHILUS/BULGARICUS 1 EACH TAB.CHEW GT SCH ×2 (09:00→16:28)
[2018-06-09] MEDS: FERROUS SULFATE - FOR SA ONLY 330 MG/7.5 ML UDC GT SCH ×2 (09:00→16:28)
[2018-06-09] MEDS: LEVETIRACETAM SOL (5 ML) 100 MG/ML UDC GT SCH ×2 (09:00→20:39)
[2018-06-09] MEDS: CALCIUM CARBONATE 500 MG TAB.CHEW GT SCH ×2 (09:00→16:28)
[2018-06-09] MEDS: Z GUARD REMEDY 4 OZ OINT TP SCH ×4 (09:00→20:39)
[2018-06-09] MEDS: HYDROGEN PEROXIDE 480 ML BOTTLE TP SCH ×2 (09:00→20:39)
[2018-06-09] MEDS: BALM TP SCH ×2 (09:00→20:39)
[2018-06-09] MEDS: PROSOURCE / PROSTAT (PYXIS) 30 ML UDC GT SCH ×2 (09:00→16:28)
[2018-06-09] MEDS: NEOMY SULF/BACITRAC ZN/POLY 15 GM TUBE TP SCH (09:00)
--- NOTE | 2018-06-09 09:29 | NUR ---
Please see resident's original account [id number] for all assessments and nurses notes. Originally admitted on 08/08/16.
--- NOTE | 2018-06-09 10:26 | NUR ---
Please see resident's previous account [id number] for Social Service assessments, evaluations and notes.
--- NOTE | 2018-06-09 10:27 | NUR ---
RT RECD PT TRACHED INTACT AND SECURED APRIL ORDERED SETTINGS. ALARMS ON AND AUDIBLE BAG AND MASK AT HOB. VENT PLUGGED IN RED OUTLET. TXS GIVEN APRIL'D WLL NO ADVERSE REACTION NOTED ATT SX THICK YELLOW MODERATE SECRETIONS. NO RESP DISTRESS WILL CONT TO MONITOR Addendum: 06/09/18 at 1029 by KACI TAYLOR RT Amended: Links added.
[2018-06-09 12:34] VITALS: BP 138/65
[2018-06-09] MEDS: GABAPENTIN 300 MG CAPSULE GT SCH ×2 (13:32→20:39)
[2018-06-09] MEDS: GLUCERNA 1.2 1,000 ML BOTTLE GT PRN (14:04)
[2018-06-09] MEDS: ALBUTEROL FS 2.5 MG/3 ML VIAL.NEB NEB SCH ×2 (14:25→19:53)
[2018-06-09] MEDS: BLOOD SUGAR DIAGNOSTIC 1 EACH STRIP IN SCH (17:34)
[2018-06-09 19:36] VITALS: BP 139/79
[2018-06-09] MEDS: ASCORBIC ACID 500 MG TABLET GT SCH (20:39)
[2018-06-10] MEDS: ALBUTEROL FS 2.5 MG/3 ML VIAL.NEB NEB SCH ×4 (02:18→19:32)
[2018-06-10] MEDS: GABAPENTIN 300 MG CAPSULE GT SCH ×3 (05:19→20:17)
[2018-06-10] MEDS: DEXILANT 30 MG GT SCH (05:19)
[2018-06-10] MEDS: BLOOD SUGAR DIAGNOSTIC 1 EACH STRIP IN SCH ×2 (06:08→17:39)
[2018-06-10] MEDS: INSULIN REGULAR, HUMAN 100 UNIT/ML 3 ML VIAL SQ PRN ×2 (06:08→17:41)
[2018-06-10] MEDS: GLUCERNA 1.2 1,000 ML BOTTLE GT PRN ×2 (06:40→23:49)
[2018-06-10 07:46] VITALS: BP 117/63
[2018-06-10] MEDS: SIMETHICONE SUSP 40 MG/0.6 ML BOTTLE GT SCH ×2 (08:10→20:17)
[2018-06-10] MEDS: TRILEPTAL GT SCH ×2 (08:16→20:17)
[2018-06-10] MEDS: LEVETIRACETAM SOL (5 ML) 100 MG/ML UDC GT SCH ×2 (08:16→20:17)
[2018-06-10] MEDS: FERROUS SULFATE - FOR SA ONLY 330 MG/7.5 ML UDC GT SCH ×2 (08:16→16:44)
[2018-06-10] MEDS: PROSOURCE / PROSTAT (PYXIS) 30 ML UDC GT SCH ×2 (08:17→16:45)
[2018-06-10] MEDS: MULTIVIT W/MINERALS 1 TAB TABLET GT SCH (08:17)
[2018-06-10] MEDS: ACIDOPHILUS/BULGARICUS 1 EACH TAB.CHEW GT SCH ×2 (08:17→16:45)
[2018-06-10] MEDS: Z GUARD REMEDY 4 OZ OINT TP SCH ×4 (08:18→20:18)
[2018-06-10] MEDS: CALCIUM CARBONATE 500 MG TAB.CHEW GT SCH ×2 (08:18→16:45)
[2018-06-10] MEDS: HYDROGEN PEROXIDE 480 ML BOTTLE TP SCH ×2 (08:18→20:18)
[2018-06-10] MEDS: BALM TP SCH ×2 (08:18→20:18)
[2018-06-10] MEDS: NEOMY SULF/BACITRAC ZN/POLY 15 GM TUBE TP SCH (08:20)
--- NOTE | 2018-06-10 08:20 | NUR ---
Seen by Anna Vargas no new order.
[2018-06-10] MEDS: ASCORBIC ACID 500 MG TABLET GT SCH (20:18)
--- NOTE | 2018-06-10 20:28 | NUR ---
RT NOTE PATIENT RECEIVED TRACHED ON MECHANICAL VENTILATION. AMBU BAG/BACK UP TRACH @ BEDSIDE. TX GIVEN, NO ADVERSE REACTIONS NOTED. SX DONE, MODERATE THICK WHITE SECRETIONS NOTED. ALARMS ON AND AUDIBLE. PATIENT STABLE. WILL MONITOR T/O SHIFT. Addendum: 06/10/18 at 2035 by BRIEN NEAL RT Amended: Links added.
[2018-06-10 20:44] VITALS: BP 128/62
[2018-06-11] MEDS: ALBUTEROL FS 2.5 MG/3 ML VIAL.NEB NEB SCH ×4 (01:21→19:29)
[2018-06-11] MEDS: GABAPENTIN 300 MG CAPSULE GT SCH ×3 (04:45→20:39)
[2018-06-11] MEDS: MAGNESIUM HYDROXIDE 30 ML UDC GT PRN ×2 (04:45→20:40)
[2018-06-11] MEDS: BLOOD SUGAR DIAGNOSTIC 1 EACH STRIP IN SCH ×2 (05:30→17:37)
[2018-06-11] MEDS: DEXILANT 30 MG GT SCH (05:30)
[2018-06-11] MEDS: INSULIN REGULAR, HUMAN 100 UNIT/ML 3 ML VIAL SQ PRN (05:31)
--- NOTE | 2018-06-11 07:55 | NUR ---
PT REC'D TRACHED ON [facility] VENT ON AC MODE. NO RESP DISTRESS OR SOB NOTED. SX'D FOR THIN MINIMAL AMT OF CLEAR SECRETIONS. TRACH PATENT AND SECURED. ALARMS ARE SET AND AUDIBLE, VENT PLUGGED INTO RED OUTLET, AMBU BAG BEDSIDE. WILL CONTINUE TO MONITOR. Addendum: 06/11/18 at 1641 by LADAN WICK RT Amended: Links added.
[2018-06-11 08:00] VITALS: BP 116/75
[2018-06-11] MEDS: CALCIUM CARBONATE 500 MG TAB.CHEW GT SCH ×2 (08:18→17:02)
[2018-06-11] MEDS: FERROUS SULFATE - FOR SA ONLY 330 MG/7.5 ML UDC GT SCH ×2 (08:18→17:02)
[2018-06-11] MEDS: LEVETIRACETAM SOL (5 ML) 100 MG/ML UDC GT SCH ×2 (08:18→20:39)
[2018-06-11] MEDS: TRILEPTAL GT SCH ×2 (08:18→20:39)
[2018-06-11] MEDS: ACIDOPHILUS/BULGARICUS 1 EACH TAB.CHEW GT SCH ×2 (08:18→17:02)
[2018-06-11] MEDS: SIMETHICONE SUSP 40 MG/0.6 ML BOTTLE GT SCH ×2 (08:18→20:39)
[2018-06-11] MEDS: MULTIVIT W/MINERALS 1 TAB TABLET GT SCH (08:18)
[2018-06-11] MEDS: Z GUARD REMEDY 4 OZ OINT TP SCH ×4 (08:19→20:39)
[2018-06-11] MEDS: NEOMY SULF/BACITRAC ZN/POLY 15 GM TUBE TP SCH (08:19)
[2018-06-11] MEDS: HYDROGEN PEROXIDE 480 ML BOTTLE TP SCH ×2 (08:19→20:39)
[2018-06-11] MEDS: BALM TP SCH ×2 (08:19→20:39)
[2018-06-11] MEDS: PROSOURCE / PROSTAT (PYXIS) 30 ML UDC GT SCH ×2 (08:20→17:02)
--- NOTE | 2018-06-11 10:58 | NUR ---
rodent control worker received a call from Dede at the office of Dr. Escalante (baseball umpire for [employer]- [phone]). Resident is due for an optometry exam and she noted that Dr. Escalante will come on Monday June 18, 2018 around 10AM. STEPHEN informed resident's sister Beckie Chu and informed her to please keep note of the date since STEPHEN will not be here to remind her. She appreciated the information given.
--- NOTE | 2018-06-11 18:23 | NUR ---
Seen by NAN Vargas, no new order given.
[2018-06-11] MEDS: ASCORBIC ACID 500 MG TABLET GT SCH (20:39)
[2018-06-11 20:49] VITALS: BP 128/60
[2018-06-12] MEDS: ALBUTEROL FS 2.5 MG/3 ML VIAL.NEB NEB SCH ×4 (01:46→19:23)
[2018-06-12] MEDS: GABAPENTIN 300 MG CAPSULE GT SCH ×3 (05:28→20:51)
[2018-06-12] MEDS: BLOOD SUGAR DIAGNOSTIC 1 EACH STRIP IN SCH ×2 (05:28→17:36)
[2018-06-12] MEDS: DEXILANT 30 MG GT SCH (05:28)
[2018-06-12] MEDS: INSULIN REGULAR, HUMAN 100 UNIT/ML 3 ML VIAL SQ PRN (05:29)
[2018-06-12] MEDS: GLUCERNA 1.2 1,000 ML BOTTLE GT PRN (05:29)
[2018-06-12] MEDS: BISACODYL SUPP (10 MG) 10 MG/SUPP.RECT SUPP.RECT RC PRN (06:18)
[2018-06-12 07:45] VITALS: BP 122/66
[2018-06-12] MEDS: BALM TP SCH ×2 (08:12→20:51)
[2018-06-12] MEDS: SIMETHICONE SUSP 40 MG/0.6 ML BOTTLE GT SCH ×2 (08:12→20:51)
[2018-06-12] MEDS: FERROUS SULFATE - FOR SA ONLY 330 MG/7.5 ML UDC GT SCH ×2 (08:12→16:07)
[2018-06-12] MEDS: NEOMY SULF/BACITRAC ZN/POLY 15 GM TUBE TP SCH (08:12)
[2018-06-12] MEDS: TRILEPTAL GT SCH ×2 (08:12→20:51)
[2018-06-12] MEDS: MULTIVIT W/MINERALS 1 TAB TABLET GT SCH (08:12)
[2018-06-12] MEDS: PROSOURCE / PROSTAT (PYXIS) 30 ML UDC GT SCH ×2 (08:12→16:07)
[2018-06-12] MEDS: CALCIUM CARBONATE 500 MG TAB.CHEW GT SCH ×2 (08:12→16:07)
[2018-06-12] MEDS: HYDROGEN PEROXIDE 480 ML BOTTLE TP SCH ×2 (08:12→20:51)
[2018-06-12] MEDS: Z GUARD REMEDY 4 OZ OINT TP SCH ×4 (08:12→20:51)
[2018-06-12] MEDS: LEVETIRACETAM SOL (5 ML) 100 MG/ML UDC GT SCH ×2 (08:12→20:51)
[2018-06-12] MEDS: ACIDOPHILUS/BULGARICUS 1 EACH TAB.CHEW GT SCH ×2 (08:12→16:07)
--- NOTE | 2018-06-12 19:35 | NUR ---
RT NOTE RECEIVED TRACH PT ON MECHANICAL VENTILATION ON NOTED SETTINGS PER MD ORDERS. AMBU BAG @ BEDSIDE. Q6 BREATHING TX GIVEN WITH NO ADVERSE REACTIONS NOTED. SX DONE PRN. ALARMS ON AND AUDIBLE. NO RESP DISTRESS A THIS TIME. WILL CONT TO MONITOR PT. Addendum: 06/12/18 at 2129 by QIANA MARY RT Amended: Links added.
[2018-06-12 19:53] VITALS: BP 98/62
[2018-06-12] MEDS: ASCORBIC ACID 500 MG TABLET GT SCH (20:51)
[2018-06-13] MEDS: ALBUTEROL FS 2.5 MG/3 ML VIAL.NEB NEB SCH ×4 (00:41→19:13)
[2018-06-13] MEDS: DEXILANT 30 MG GT SCH (05:31)
[2018-06-13] MEDS: INSULIN REGULAR, HUMAN 100 UNIT/ML 3 ML VIAL SQ PRN (05:31)
[2018-06-13] MEDS: BLOOD SUGAR DIAGNOSTIC 1 EACH STRIP IN SCH ×2 (05:31→17:41)
[2018-06-13] MEDS: GABAPENTIN 300 MG CAPSULE GT SCH ×3 (05:31→20:41)
[2018-06-13 07:28] VITALS: BP 118/62
--- NOTE | 2018-06-13 07:55 | NUR ---
PT REC'D TRACHED ON [facility] VENT ON AC MODE. NO RESP DISTRESS OR SOB NOTED. SX'D FOR THIN MINIMAL AMT OF CLEAR SECRETIONS. TRACH PATENT AND SECURED. ALARMS ARE SET AND AUDIBLE, VENT PLUGGED INTO RED OUTLET, AMBU BAG BEDSIDE. WILL CONTINUE TO MONITOR. Addendum: 06/13/18 at 1720 by ELIZABETH CAPONE RT Amended: Links added.
[2018-06-13] MEDS: SIMETHICONE SUSP 40 MG/0.6 ML BOTTLE GT SCH ×2 (08:00→20:16)
[2018-06-13] MEDS: PROSOURCE / PROSTAT (PYXIS) 30 ML UDC GT SCH ×2 (09:33→16:26)
[2018-06-13] MEDS: CALCIUM CARBONATE 500 MG TAB.CHEW GT SCH ×2 (09:33→16:26)
[2018-06-13] MEDS: FERROUS SULFATE - FOR SA ONLY 330 MG/7.5 ML UDC GT SCH ×2 (09:33→16:26)
[2018-06-13] MEDS: BALM TP SCH ×2 (09:33→20:39)
[2018-06-13] MEDS: TRILEPTAL GT SCH ×2 (09:33→20:38)
[2018-06-13] MEDS: ACIDOPHILUS/BULGARICUS 1 EACH TAB.CHEW GT SCH ×2 (09:33→16:26)
[2018-06-13] MEDS: MULTIVIT W/MINERALS 1 TAB TABLET GT SCH (09:33)
[2018-06-13] MEDS: LEVETIRACETAM SOL (5 ML) 100 MG/ML UDC GT SCH ×2 (09:33→20:38)
[2018-06-13] MEDS: HYDROGEN PEROXIDE 480 ML BOTTLE TP SCH ×2 (09:34→20:41)
[2018-06-13] MEDS: Z GUARD REMEDY 4 OZ OINT TP SCH ×4 (09:34→20:43)
[2018-06-13] MEDS: NEOMY SULF/BACITRAC ZN/POLY 15 GM TUBE TP SCH (09:34)
[2018-06-13] MEDS: GLUCERNA 1.2 1,000 ML BOTTLE GT PRN (12:58)
--- NOTE | 2018-06-13 19:13 | NUR ---
RT NOTE: RECEIVED TRACH PT ON [facility] VENT ON NOTED SETTINGS PER MD ORDERS. TRACH IS PATENT AND SECURED. TOOL CRIB SUPERVISOR DONE. AMBU BAG @ BEDSIDE. Q6 BREATHING TX GIVEN WITH NO ADVERSE REACTION NOTED. SX DONE PRN. ALARMS ON AND AUDIBLE. NO RESP DISTRESS AT THIS TIME. WILL CONT TO MONITOR PT. Addendum: 06/14/18 at 0549 by QIANA MARY RT Amended: Links added.
[2018-06-13 19:54] VITALS: BP 131/62
[2018-06-13] MEDS: ASCORBIC ACID 500 MG TABLET GT SCH (20:39)
[2018-06-14] MEDS: ALBUTEROL FS 2.5 MG/3 ML VIAL.NEB NEB SCH ×4 (01:58→19:16)
[2018-06-14] MEDS: GABAPENTIN 300 MG CAPSULE GT SCH ×3 (04:36→20:03)
[2018-06-14] MEDS: DEXILANT 30 MG GT SCH (05:13)
[2018-06-14] MEDS: BLOOD SUGAR DIAGNOSTIC 1 EACH STRIP IN SCH ×2 (06:22→17:43)
[2018-06-14 07:39] VITALS: BP 141/72
[2018-06-14] MEDS: LEVETIRACETAM SOL (5 ML) 100 MG/ML UDC GT SCH ×2 (08:10→20:03)
[2018-06-14] MEDS: TRILEPTAL GT SCH ×2 (08:10→20:03)
[2018-06-14] MEDS: SIMETHICONE SUSP 40 MG/0.6 ML BOTTLE GT SCH ×2 (08:10→20:03)
[2018-06-14] MEDS: FERROUS SULFATE - FOR SA ONLY 330 MG/7.5 ML UDC GT SCH ×2 (08:10→17:43)
[2018-06-14] MEDS: ACIDOPHILUS/BULGARICUS 1 EACH TAB.CHEW GT SCH ×2 (08:12→17:43)
[2018-06-14] MEDS: CALCIUM CARBONATE 500 MG TAB.CHEW GT SCH ×2 (08:13→17:43)
[2018-06-14] MEDS: PROSOURCE / PROSTAT (PYXIS) 30 ML UDC GT SCH ×2 (08:13→17:43)
[2018-06-14] MEDS: MULTIVIT W/MINERALS 1 TAB TABLET GT SCH (08:13)
[2018-06-14] MEDS: ACETAMINOPHEN 650 MG/20 ML UDC- SA PATIENTS-PAIN ONLY GT PRN (08:14)
[2018-06-14 09:00] VITALS: BP 128/76
[2018-06-14] MEDS: HYDROGEN PEROXIDE 480 ML BOTTLE TP SCH ×2 (09:00→20:04)
[2018-06-14] MEDS: NEOMY SULF/BACITRAC ZN/POLY 15 GM TUBE TP SCH (09:00)
[2018-06-14] MEDS: BALM TP SCH ×2 (09:00→20:04)
[2018-06-14] MEDS: Z GUARD REMEDY 4 OZ OINT TP SCH ×4 (09:00→20:04)
[2018-06-14 12:00] VITALS: BP 116/78
--- NOTE | 2018-06-14 15:30 | NUR ---
RT PATIENT RECEIVED TRACHED ON MECHANICAL VENTILATION ON SETTINGS ORDERED. AMBU BAG/BACK UP TRACH AT BEDSIDE. TX GIVEN, NO ADVERSE REACTIONS NOTED. SX DONE, MODERATE THICK WHITE SECRETIONS NOTED. ALARMS ON AND AUDIBLE. VENT PLUGGED IN RED OUTLET, PATIENT STABLE. WILL CONTINUE MONITOR. Addendum: 06/14/18 at 1532 by MARCO FRANCOIS RT Amended: Links added.
[2018-06-14] MEDS: INSULIN REGULAR, HUMAN 100 UNIT/ML 3 ML VIAL SQ PRN (17:53)
[2018-06-14] MEDS ORDERED: GLUCERNA 1.5 1,000 ML BOTTLE GT PRN (18:30)
--- NOTE | 2018-06-14 19:00 | NUR ---
Seen by ORGANIC SECTION TECHNICAL LEAD Anna Vargas. Notified her that pt had a temp of 100.1 F earlier today and temp decreased to 98.7 F. No new order.
--- NOTE | 2018-06-14 19:08 | NUR ---
Glucerna 1.2 not available according to kitchen and computer support technician. Notified Dr Montaño. Received order to change feeding from Glucerna 1.2 to Glucerna 1.5 and DC Prostat per computer support technician's recommendation.
[2018-06-14 19:52] VITALS: BP 145/75
[2018-06-14] MEDS: ASCORBIC ACID 500 MG TABLET GT SCH (20:03)
[2018-06-14] MEDS: GLUCERNA 1.5 1,000 ML BOTTLE GT PRN (21:50)
--- NOTE | 2018-06-14 21:57 | NUR ---
RT PATIENT RECEIVED TRACHED ON MECHANICAL VENTILATION ON SETTINGS ORDERED. AMBU BAG/BACK UP TRACH AT BEDSIDE. TX GIVEN, NO ADVERSE REACTIONS NOTED. SX DONE, MODERATE THICK WHITE SECRETIONS NOTED. ALARMS ON AND AUDIBLE. VENT PLUGGED IN RED OUTLET, PATIENT STABLE. WILL CONTINUE MONITOR. Addendum: 06/14/18 at 2157 by MERLIN FARAH RT Amended: Links added.
[2018-06-15] MEDS: ALBUTEROL FS 2.5 MG/3 ML VIAL.NEB NEB SCH ×4 (00:51→19:25)
[2018-06-15] MEDS: GABAPENTIN 300 MG CAPSULE GT SCH ×3 (05:04→20:22)
[2018-06-15] MEDS: DEXILANT 30 MG GT SCH (05:04)
[2018-06-15] MEDS: BLOOD SUGAR DIAGNOSTIC 1 EACH STRIP IN SCH ×2 (05:53→18:34)
--- NOTE | 2018-06-15 07:28 | NUR ---
RT NOTE PT RECEIVED ON [facility] VENT ON THE FOLLOWING NOTED SETTINGS. NO RESP DISTRESS OR SOB NOTED AT THIS TIME. PT SUCTIONED: SMALL THIN WHITE/YELLOW SECRETIONS. BREATHING TX GIVEN, NO ADVERSE REACTIONS NOTED. VENT IS PLUGGED INTO RED OUTLET. VENT ALARMS ARE ON AND AUDIBLE. SPARE TRACH AND AMBU BAG ARE AT BEDSIDE. WILL CONT TO MONITOR. Addendum: 06/15/18 at 0730 by MARLA ALCOCER RT Amended: Links added.
[2018-06-15 07:34] VITALS: BP 124/76
[2018-06-15] MEDS: SIMETHICONE SUSP 40 MG/0.6 ML BOTTLE GT SCH ×2 (08:00→20:22)
[2018-06-15] MEDS: Z GUARD REMEDY 4 OZ OINT TP SCH ×4 (09:00→20:23)
[2018-06-15] MEDS: HYDROGEN PEROXIDE 480 ML BOTTLE TP SCH ×2 (09:00→20:22)
[2018-06-15] MEDS: ACETAMINOPHEN 650 MG/20 ML UDC- SA PATIENTS-PAIN ONLY GT PRN (09:00)
[2018-06-15] MEDS: BALM TP SCH ×2 (09:00→20:22)
[2018-06-15] MEDS: NEOMY SULF/BACITRAC ZN/POLY 15 GM TUBE TP SCH (09:00)
[2018-06-15] MEDS: FERROUS SULFATE - FOR SA ONLY 330 MG/7.5 ML UDC GT SCH ×2 (09:38→17:00)
[2018-06-15] MEDS: TRILEPTAL GT SCH ×2 (09:39→20:22)
[2018-06-15] MEDS: LEVETIRACETAM SOL (5 ML) 100 MG/ML UDC GT SCH ×2 (09:39→20:22)
[2018-06-15] MEDS: ACIDOPHILUS/BULGARICUS 1 EACH TAB.CHEW GT SCH ×2 (09:40→17:00)
[2018-06-15] MEDS: CALCIUM CARBONATE 500 MG TAB.CHEW GT SCH ×2 (09:40→17:00)
[2018-06-15] MEDS: MULTIVIT W/MINERALS 1 TAB TABLET GT SCH (09:41)
--- NOTE | 2018-06-15 10:00 | NUR ---
Seen by Dr Felix. Notified him that pt had a temp of 100.1 F and 98.7 F yesterday, temp 100.[address] Felix ordered to do CBC and UA C & S. Informed Beckie.
[2018-06-15 11:40] LABS: BASOPHILS # (AUTO) 0.1 /CMM (0.0-0.2); BASOPHILS % (AUTO) 0.6 % (0.0-2.0); EOSINOPHILS % (AUTO) 3.1 % (0.0-6.0); HEMATOCRIT 31 % (33-45); HEMOGLOBIN 9.9 g/dL (11.5-14.8); LYMPHOCYTES # (AUTO) 2.7 /CMM (0.8-4.8); LYMPHOCYTES % (AUTO) 15.9 % (20.0-44.0); MEAN CORPUSCULAR HGB CONC 32 g/dl (31.0-36.0); MEAN CORPUSCULAR VOLUME 98 fL (82-100); MONOCYTES # (AUTO) 1.4 /CMM (0.1-1.30); MONOCYTES % (AUTO) 8.5 % (2.0-12.0); NEUTROPHILS # (AUTO) 12.1 /CMM (1.8-8.9); NEUTROPHILS % (AUTO) 71.9 % (43.0-81.0); PLATELET COUNT (AUTO) 286 /CMM (150-450); RED BLOOD CELL COUNT(AUTO) 3.13 MIL/uL (4.0-5.2); WHITE BLOOD COUNT (AUTO) 16.9 K/uL (4.3-11.0)
--- NOTE | 2018-06-15 12:22 | NUR ---
Relayed WBC 16.[address] Felix. He said to wait for urine culture, do CXR and blood culture x 2. Addendum: 06/15/18 at 1223 by SARITA GOMEZ RN T 98 F at this time.
[2018-06-15] MEDS: GLUCERNA 1.5 1,000 ML BOTTLE GT PRN (15:20)
--- NOTE | 2018-06-15 18:17 | NUR ---
Seen by Dr Montaño. Notified him that pt had a temp of [address] Felix ordered CBC, UA C & S, blood cultures and CXR. WBC 16.9 and CXR result to Dr Montaño. He ordered to do BMP.
[2018-06-15 18:23] LABS: CALCIUM, SERUM 8.6 mg/dL (8.5-10.1); CREATININE 2.6 mg/dL (0.6-1.3); POTASSIUM 3.9 mmol/L (3.5-5.1)
[2018-06-15] MEDS: INSULIN REGULAR, HUMAN 100 UNIT/ML 3 ML VIAL SQ PRN (18:34)
--- NOTE | 2018-06-15 19:28 | NUR ---
RT PATIENT RECEIVED TRACHED ON MECHANICAL VENTILATION ON SETTINGS ORDERED. AMBU BAG/BACK UP TRACH AT BEDSIDE. TX GIVEN, NO ADVERSE REACTIONS NOTED. SX DONE, MODERATE THICK WHITE SECRETIONS NOTED. ALARMS ON AND AUDIBLE. VENT PLUGGED IN RED OUTLET, PATIENT STABLE. WILL CONTINUE MONITOR. Addendum: 06/15/18 at 1928 by MERLIN FARAH RT Amended: Links added.
[2018-06-15 19:58] VITALS: BP 110/65
[2018-06-15] MEDS: ASCORBIC ACID 500 MG TABLET GT SCH (20:22)
[2018-06-16] MEDS: ALBUTEROL FS 2.5 MG/3 ML VIAL.NEB NEB SCH ×4 (01:03→20:00)
[2018-06-16 02:22] LABS: APPEARANCE,URINE CLOUDY (CLEAR); BILIRUBIN,URINE NEGATIVE (NEGATIVE); BLOOD, URINE 2+ Ery/uL (NEGATIVE); COLOR,URINE YELLOW (YELLOW); KETONES,URINE NEGATIVE (NEGATIVE); LEUKOCYTE ESTERASE ,URINE 3+ (NEGATIVE); NITRITE, URINE NEGATIVE (NEGATIVE); PROTEIN,URINE 3+ mg/dl (NEGATIVE); UGLUCOSE NEGATIVE (NEGATIVE); UROBILINOGEN,URINE 0.2 EU/dL (0.2)
[2018-06-16 02:32] LABS: BACTERIA,URINE Few /HPF (None Seen); SQUAMOUS EPITHELIAL CELL,UR Few /HPF (None Seen); WBC,URINE TOO NUMEROUS TO COUN /HPF (0-3)
[2018-06-16] MEDS: DEXILANT 30 MG GT SCH (05:12)
[2018-06-16] MEDS: GABAPENTIN 300 MG CAPSULE GT SCH ×3 (05:12→20:27)
[2018-06-16] MEDS: BLOOD SUGAR DIAGNOSTIC 1 EACH STRIP IN SCH ×2 (05:54→17:34)
[2018-06-16] MEDS: INSULIN REGULAR, HUMAN 100 UNIT/ML 3 ML VIAL SQ PRN (05:55)
[2018-06-16 07:33] VITALS: BP 89/45
[2018-06-16] MEDS: SIMETHICONE SUSP 40 MG/0.6 ML BOTTLE GT SCH ×2 (08:00→20:27)
--- NOTE | 2018-06-16 08:37 | NUR ---
RT PATIENT RECEIVED TRACHED ON MECHANICAL VENTILATION ON SETTINGS ORDERED. AMBU BAG/BACK UP TRACH AT BEDSIDE. TX GIVEN, NO ADVERSE REACTIONS NOTED. SX DONE, MODERATE THIN WHITE SECRETIONS NOTED. ALARMS ON AND AUDIBLE. VENT PLUGGED IN RED OUTLET, PATIENT STABLE. WILL CONTINUE MONITOR. Addendum: 06/16/18 at 0838 by MARCO FRANCOIS RT Amended: Links added.
[2018-06-16] MEDS: MULTIVIT W/MINERALS 1 TAB TABLET GT SCH (09:00)
[2018-06-16] MEDS: BALM TP SCH ×2 (09:35→20:27)
[2018-06-16] MEDS: LEVETIRACETAM SOL (5 ML) 100 MG/ML UDC GT SCH ×2 (09:35→20:27)
[2018-06-16] MEDS: TRILEPTAL GT SCH ×2 (09:35→20:27)
[2018-06-16] MEDS: FERROUS SULFATE - FOR SA ONLY 330 MG/7.5 ML UDC GT SCH ×2 (09:35→16:07)
[2018-06-16] MEDS: ACIDOPHILUS/BULGARICUS 1 EACH TAB.CHEW GT SCH ×2 (09:35→16:07)
[2018-06-16] MEDS: CALCIUM CARBONATE 500 MG TAB.CHEW GT SCH ×2 (09:35→16:07)
[2018-06-16] MEDS: Z GUARD REMEDY 4 OZ OINT TP SCH ×4 (09:36→20:28)
[2018-06-16] MEDS: HYDROGEN PEROXIDE 480 ML BOTTLE TP SCH ×2 (09:36→20:28)
[2018-06-16] MEDS: NEOMY SULF/BACITRAC ZN/POLY 15 GM TUBE TP SCH (09:36)
[2018-06-16] MEDS: GLUCERNA 1.5 1,000 ML BOTTLE GT PRN (17:34)
[2018-06-16] MEDS: MAGNESIUM HYDROXIDE 30 ML UDC GT PRN (18:28)
[2018-06-16 20:00] VITALS: BP 108/72
--- NOTE | 2018-06-16 20:00 | NUR ---
Seen and examined by NAN Loredo with new order zosyn 3.375 gm IV q 8 hrs x 5 days per [facility] protocol for increased WBC /UTI.Sister Beckie notified with new order.
[2018-06-16] MEDS: ASCORBIC ACID 500 MG TABLET GT SCH (20:27)
[2018-06-16] MEDS ORDERED: PIPERACILLIN /TAZOBACTAM 3.375 G in IV D5W 50 ML IV SCH (21:00)
[2018-06-16] MEDS: PIPERACILLIN /TAZOBACTAM 3.375 G in IV D5W 50 ML IV SCH ×2 (21:30→21:58)
[2018-06-17] MEDS: ALBUTEROL FS 2.5 MG/3 ML VIAL.NEB NEB SCH ×4 (02:04→19:30)
[2018-06-17] MEDS ORDERED: PIPERACILLIN /TAZOBACTAM 2.25 G in IV D5W 50 ML IV SCH (05:00)
[2018-06-17] MEDS: PIPERACILLIN /TAZOBACTAM 3.375 G in IV D5W 50 ML IV SCH (05:00)
[2018-06-17] MEDS: GABAPENTIN 300 MG CAPSULE GT SCH ×3 (05:10→21:15)
[2018-06-17] MEDS: DEXILANT 30 MG GT SCH (05:12)
--- NOTE | 2018-06-17 05:40 | NUR ---
ZOSYN 3.375GM DUPLICATE ORDER,NON ADMIN ONE OF THE ENTRY.
--- NOTE | 2018-06-17 05:47 | NUR ---
RT PT RECEIVED TRACHED ON [facility] VENT WITH NOTED SETTING. VENT ALARMS SET AND AUDIBLE. VENT TO RED OUTLET. AMBU BAG AT [facility]. TRACH PATENT AND SECURE VIA TRACH TIES. TOY ELECTRIC TRAIN REPAIRER NOTED. PT TOLERATING VENT SETTING WELL, NO SOB OR DISTRESS NOTED. Addendum: 06/17/18 at 0548 by RONNIE LINDO RT Amended: Links added.
[2018-06-17] MEDS: BLOOD SUGAR DIAGNOSTIC 1 EACH STRIP IN SCH ×2 (06:12→17:05)
[2018-06-17] MEDS: INSULIN REGULAR, HUMAN 100 UNIT/ML 3 ML VIAL SQ PRN (06:13)
[2018-06-17 07:35] VITALS: BP 120/55
--- NOTE | 2018-06-17 07:50 | NUR ---
Trach pt received on a mechanical vent. Pt trach is secure. Vent is plugged into a red outlet, alarms are set and audible, and BMV is at bedside. Addendum: 06/17/18 at 0751 by MARKIE PINO RT Amended: Links added.
[2018-06-17] MEDS: SIMETHICONE SUSP 40 MG/0.6 ML BOTTLE GT SCH ×2 (08:00→20:00)
[2018-06-17] MEDS: HYDROGEN PEROXIDE 480 ML BOTTLE TP SCH ×2 (09:55→21:15)
[2018-06-17] MEDS: FERROUS SULFATE - FOR SA ONLY 330 MG/7.5 ML UDC GT SCH ×2 (09:55→17:05)
[2018-06-17] MEDS: CALCIUM CARBONATE 500 MG TAB.CHEW GT SCH ×2 (09:55→17:05)
[2018-06-17] MEDS: TRILEPTAL GT SCH ×2 (09:55→21:15)
[2018-06-17] MEDS: LEVETIRACETAM SOL (5 ML) 100 MG/ML UDC GT SCH ×2 (09:55→21:15)
[2018-06-17] MEDS: MULTIVIT W/MINERALS 1 TAB TABLET GT SCH (09:55)
[2018-06-17] MEDS: ACIDOPHILUS/BULGARICUS 1 EACH TAB.CHEW GT SCH ×2 (09:55→17:05)
[2018-06-17] MEDS: BALM TP SCH ×2 (09:55→21:15)
[2018-06-17] MEDS: Z GUARD REMEDY 4 OZ OINT TP SCH ×4 (09:56→21:15)
[2018-06-17] MEDS: NEOMY SULF/BACITRAC ZN/POLY 15 GM TUBE TP SCH (09:56)
--- NOTE | 2018-06-17 11:40 | NUR ---
[facility] pharmacist Brandan called and said that Zosyn is not covered by pt's insurance. Notified WEB METHODS DEVELOPER Gertrude. She changed pt's antibiotic to Cefepime 1 gm IV q 12 hours x 5 days per protocol.
[2018-06-17] MEDS ORDERED: CEFEPIME 1 GM in IV D5W 50 ML IV SCH (12:00)
--- NOTE | 2018-06-17 13:05 | NUR ---
Called [facility] to confirm if Cefepime is covered by pt's insurance. Spoke with Brandan who said that it is also not covered. He said Ceftazidime, Rocephin, and Cefazolin are covered. Notified NAN Loredo. She ordered to DC Cefepime and change to Ceftazidime IV pharmacy to dose.
--- NOTE | 2018-06-17 16:35 | NUR ---
Received order to give Ceftazidime 1 gm IV q 12 hours x 5 days per protocol.
[2018-06-17] MEDS: GLUCERNA 1.5 1,000 ML BOTTLE GT PRN (17:05)
[2018-06-17] MEDS: CEFTAZIDIME 1 G in IV D5W 50 ML IV SCH (18:00)
[2018-06-17 19:41] VITALS: BP 115/70
[2018-06-17] MEDS: ASCORBIC ACID 500 MG TABLET GT SCH (21:15)
[2018-06-18] MEDS: ALBUTEROL FS 2.5 MG/3 ML VIAL.NEB NEB SCH ×4 (02:13→19:21)
[2018-06-18] MEDS: CEFTAZIDIME 1 G in IV D5W 50 ML IV SCH (05:33)
[2018-06-18] MEDS: BLOOD SUGAR DIAGNOSTIC 1 EACH STRIP IN SCH ×2 (05:44→17:54)
[2018-06-18] MEDS: GABAPENTIN 300 MG CAPSULE GT SCH ×3 (05:44→20:41)
[2018-06-18] MEDS: DEXILANT 30 MG GT SCH (05:44)
[2018-06-18] MEDS: INSULIN REGULAR, HUMAN 100 UNIT/ML 3 ML VIAL SQ PRN ×2 (05:45→17:55)
--- NOTE | 2018-06-18 06:05 | NUR ---
RT PT RECEIVED TRACHED ON [facility] VENT WITH NOTED SETTING. VENT ALARMS SET AND AUDIBLE. VENT TO RED OUTLET. AMBU BAG AT [facility]. TRACH PATENT AND SECURE VIA TRACH TIES. POLICE SERGEANT NOTED. PT TOLERATING VENT SETTING WELL, NO SOB OR DISTRESS NOTED. Addendum: 06/18/18 at 0606 by RNONIE LINDO RT Amended: Links added.
[2018-06-18 07:58] VITALS: BP 124/68
[2018-06-18 08:07] LABS: BASOPHILS # (AUTO) 0.1 /CMM (0.0-0.2); BASOPHILS % (AUTO) 0.5 % (0.0-2.0); EOSINOPHILS % (AUTO) 6.1 % (0.0-6.0); HEMATOCRIT 28 % (33-45); HEMOGLOBIN 9.1 g/dL (11.5-14.8); LYMPHOCYTES # (AUTO) 2.7 /CMM (0.8-4.8); LYMPHOCYTES % (AUTO) 23.2 % (20.0-44.0); MEAN CORPUSCULAR HGB CONC 33 g/dl (31.0-36.0); MEAN CORPUSCULAR VOLUME 98 fL (82-100); MONOCYTES % (AUTO) 8.3 % (2.0-12.0); NEUTROPHILS # (AUTO) 7.3 /CMM (1.8-8.9); NEUTROPHILS % (AUTO) 61.9 % (43.0-81.0); PLATELET COUNT (AUTO) 287 /CMM (150-450); RED BLOOD CELL COUNT(AUTO) 2.85 MIL/uL (4.0-5.2); WHITE BLOOD COUNT (AUTO) 11.8 K/uL (4.3-11.0)
[2018-06-18] MEDS: ACIDOPHILUS/BULGARICUS 1 EACH TAB.CHEW GT SCH ×2 (08:21→16:22)
[2018-06-18] MEDS: SIMETHICONE SUSP 40 MG/0.6 ML BOTTLE GT SCH ×2 (08:21→20:41)
[2018-06-18] MEDS: MULTIVIT W/MINERALS 1 TAB TABLET GT SCH (08:21)
[2018-06-18] MEDS: FERROUS SULFATE - FOR SA ONLY 330 MG/7.5 ML UDC GT SCH ×2 (08:21→16:22)
[2018-06-18] MEDS: LEVETIRACETAM SOL (5 ML) 100 MG/ML UDC GT SCH ×2 (08:21→20:41)
[2018-06-18] MEDS: TRILEPTAL GT SCH ×2 (08:21→20:41)
[2018-06-18] MEDS: CALCIUM CARBONATE 500 MG TAB.CHEW GT SCH ×2 (08:21→16:22)
[2018-06-18] MEDS: NEOMY SULF/BACITRAC ZN/POLY 15 GM TUBE TP SCH ×2 (08:22→20:41)
[2018-06-18] MEDS: Z GUARD REMEDY 4 OZ OINT TP SCH ×4 (08:22→20:41)
[2018-06-18] MEDS: BALM TP SCH ×2 (08:22→20:41)
[2018-06-18] MEDS: HYDROGEN PEROXIDE 480 ML BOTTLE TP SCH ×2 (08:22→20:41)
--- NOTE | 2018-06-18 11:00 | NUR ---
Notified Gertrude Calhoun NP of the final urine culture result showing E. Coli - ESBL and Pseudomonas Aeruginosa with order to D/C Ceftazidime and change to Augmentin per pharmacy to dose. Spoke with Maddi from [facility] pharmacy with Augmentin dosing of 875 mg. Q 12 hours x 7days for UTI. NAN Loredo in agreement. Notified resident's sister Beckie of [facility] observe contact isolation for ESBL urine. Sister appreciated the call.
--- NOTE | 2018-06-18 11:19 | NUR ---
The resident was seen by Dr. Escalante (pegger dobby looms) for yearly optometry visit.
[2018-06-18] MEDS: AMOX/CLAVULANATE 875 MG TABLET PO SCH ×2 (12:00→23:22)
[2018-06-18] MEDS: GLUCERNA 1.5 1,000 ML BOTTLE GT PRN (17:07)
[2018-06-18 19:39] VITALS: BP_SYST 131; BP_SYST 139; BP_DIAS 56; BP_DIAS 75
--- NOTE | 2018-06-18 19:59 | NUR ---
Patient received on mechanical ventilation support with settings of AC 16, 550 Vt, 30%, +5. Suctioned for minimal, thick, yellow secretions. Given in-line treatments with no adverse reactions. Ambu bag at bedside. Vent alarm audible and visible. Vent plugged into red outlet. Addendum: 06/18/18 at 1999 by SARA MOLINA RT Amended: Links added.
--- NOTE | 2018-06-18 20:05 | NUR ---
Noted with open skin @back of the head(bald spot) treatment iniated with triple antibiotic and cover with mepelix q shift x 14 days.Sister Beckie notified.
[2018-06-18] MEDS: ASCORBIC ACID 500 MG TABLET GT SCH (20:41)
[2018-06-19] MEDS: ALBUTEROL FS 2.5 MG/3 ML VIAL.NEB NEB SCH ×4 (01:09→20:14)
[2018-06-19] MEDS: GABAPENTIN 300 MG CAPSULE GT SCH ×3 (05:00→20:17)
[2018-06-19] MEDS: DEXILANT 30 MG GT SCH (05:00)
[2018-06-19] MEDS: BLOOD SUGAR DIAGNOSTIC 1 EACH STRIP IN SCH ×2 (05:47→18:00)
[2018-06-19] MEDS: INSULIN REGULAR, HUMAN 100 UNIT/ML 3 ML VIAL SQ PRN ×2 (05:48→18:01)
[2018-06-19 07:33] VITALS: BP 129/82
[2018-06-19] MEDS: SIMETHICONE SUSP 40 MG/0.6 ML BOTTLE GT SCH ×2 (08:00→20:17)
[2018-06-19] MEDS: Z GUARD REMEDY 4 OZ OINT TP SCH ×2 (09:00→20:18)
[2018-06-19] MEDS: HYDROGEN PEROXIDE 480 ML BOTTLE TP SCH ×2 (09:00→20:17)
[2018-06-19] MEDS: NEOMY SULF/BACITRAC ZN/POLY 15 GM TUBE TP SCH ×3 (09:00→20:18)
[2018-06-19] MEDS: BALM TP SCH ×2 (09:00→20:17)
[2018-06-19] MEDS: TRILEPTAL GT SCH ×2 (09:14→20:17)
[2018-06-19] MEDS: FERROUS SULFATE - FOR SA ONLY 330 MG/7.5 ML UDC GT SCH ×2 (09:14→17:14)
[2018-06-19] MEDS: LEVETIRACETAM SOL (5 ML) 100 MG/ML UDC GT SCH ×2 (09:16→20:17)
[2018-06-19] MEDS: ACIDOPHILUS/BULGARICUS 1 EACH TAB.CHEW GT SCH ×2 (09:17→17:14)
[2018-06-19] MEDS: MULTIVIT W/MINERALS 1 TAB TABLET GT SCH (09:17)
[2018-06-19] MEDS: CALCIUM CARBONATE 500 MG TAB.CHEW GT SCH ×2 (09:17→17:14)
[2018-06-19] MEDS: AMOX/CLAVULANATE 875 MG TABLET PO SCH ×2 (11:00→23:36)
[2018-06-19] MEDS: TRIAMCINOLONE ACETONIDE 0.025% 15 GM TUBE TP SCH ×2 (12:35→20:17)
[2018-06-19] MEDS: NYSTATIN TOP POWDER 15 GM BOTTLE TP SCH ×2 (12:35→20:17)
[2018-06-19] MEDS: GLUCERNA 1.5 1,000 ML BOTTLE GT PRN (18:01)
[2018-06-19 19:30] VITALS: BP 125/76
[2018-06-19] MEDS: ASCORBIC ACID 500 MG TABLET GT SCH (20:17)
--- NOTE | 2018-06-19 20:24 | NUR ---
RT Pt received trach'd and on [facility] vent w charted settings. Vent is plugged into red outlet. Alarms are on and audible w teresa @ [facility]. Trach is secure and patent. Media Relations Specialist done. Hhn tx given and pt sx'd w no adverse reactions. No respiratory distress noted at this time. Will continue to monitor. Addendum: 06/19/18 at 2055 by JULIETH REY RT Amended: Links added.
[2018-06-20] MEDS: ALBUTEROL FS 2.5 MG/3 ML VIAL.NEB NEB SCH ×4 (02:02→19:40)
[2018-06-20] MEDS: DEXILANT 30 MG GT SCH (05:17)
[2018-06-20] MEDS: GABAPENTIN 300 MG CAPSULE GT SCH ×3 (05:17→20:12)
[2018-06-20] MEDS: BLOOD SUGAR DIAGNOSTIC 1 EACH STRIP IN SCH ×2 (05:18→17:45)
[2018-06-20] MEDS: INSULIN REGULAR, HUMAN 100 UNIT/ML 3 ML VIAL SQ PRN (05:18)
[2018-06-20 07:48] VITALS: BP 122/76
[2018-06-20] MEDS: SIMETHICONE SUSP 40 MG/0.6 ML BOTTLE GT SCH ×2 (08:00→20:12)
--- NOTE | 2018-06-20 08:16 | NUR ---
RT PT REC'D TRACHED ON VENT SETTINGS CHARTED, PT AWAKE AND RESPONSIVE TO PAIN, NO SOB, NO RESPIRATORY DISTRESS NOTED AT THIS TIME, TRACH TUBE PATENT, SECURE, IN PLACE, AMBU BAG @ HOB, VENT ALARMS ON AND AUDIBLE, PT SUCTIONED W SMALL AMOUNT OF THICK PALE YELLOW SECRETIONS, TX GIVEN WITH NO ADVERSE REACTION, WILL CONTINUE TO MONITOR. Addendum: 06/20/18 at 0820 by MARCO FRANCOIS RT Amended: Links added.
[2018-06-20] MEDS: TRILEPTAL GT SCH ×2 (09:14→20:12)
[2018-06-20] MEDS: FERROUS SULFATE - FOR SA ONLY 330 MG/7.5 ML UDC GT SCH ×2 (09:14→16:48)
[2018-06-20] MEDS: Z GUARD REMEDY 4 OZ OINT TP SCH ×2 (09:15→20:12)
[2018-06-20] MEDS: BALM TP SCH ×2 (09:15→20:12)
[2018-06-20] MEDS: MULTIVIT W/MINERALS 1 TAB TABLET GT SCH (09:15)
[2018-06-20] MEDS: CALCIUM CARBONATE 500 MG TAB.CHEW GT SCH ×2 (09:15→16:48)
[2018-06-20] MEDS: ACIDOPHILUS/BULGARICUS 1 EACH TAB.CHEW GT SCH ×2 (09:15→16:48)
[2018-06-20] MEDS: NYSTATIN TOP POWDER 15 GM BOTTLE TP SCH ×2 (09:15→20:12)
[2018-06-20] MEDS: NEOMY SULF/BACITRAC ZN/POLY 15 GM TUBE TP SCH ×3 (09:15→20:12)
[2018-06-20] MEDS: TRIAMCINOLONE ACETONIDE 0.025% 15 GM TUBE TP SCH ×2 (09:15→20:12)
[2018-06-20] MEDS: HYDROGEN PEROXIDE 480 ML BOTTLE TP SCH ×2 (09:15→20:12)
[2018-06-20] MEDS: LEVETIRACETAM SOL (5 ML) 100 MG/ML UDC GT SCH ×2 (09:15→20:12)
[2018-06-20] MEDS: AMOX/CLAVULANATE 875 MG TABLET PO SCH ×2 (11:00→23:00)
[2018-06-20 19:37] VITALS: BP 105/71
[2018-06-20] MEDS: ASCORBIC ACID 500 MG TABLET GT SCH (20:12)
[2018-06-20] MEDS: GLUCERNA 1.2 1,000 ML BOTTLE GT PRN (22:04)
[2018-06-21] MEDS: ALBUTEROL FS 2.5 MG/3 ML VIAL.NEB NEB SCH ×4 (00:33→19:04)
[2018-06-21] MEDS: GABAPENTIN 300 MG CAPSULE GT SCH ×3 (05:06→20:08)
[2018-06-21] MEDS: DEXILANT 30 MG GT SCH (05:06)
[2018-06-21] MEDS: BLOOD SUGAR DIAGNOSTIC 1 EACH STRIP IN SCH ×2 (05:06→17:21)
[2018-06-21] MEDS: INSULIN REGULAR, HUMAN 100 UNIT/ML 3 ML VIAL SQ PRN ×2 (06:14→17:34)
[2018-06-21] MEDS: SIMETHICONE SUSP 40 MG/0.6 ML BOTTLE GT SCH ×2 (08:00→20:08)
[2018-06-21] MEDS: HYDROGEN PEROXIDE 480 ML BOTTLE TP SCH ×2 (09:00→20:08)
[2018-06-21] MEDS: NYSTATIN TOP POWDER 15 GM BOTTLE TP SCH ×2 (09:00→20:08)
[2018-06-21] MEDS: Z GUARD REMEDY 4 OZ OINT TP SCH ×2 (09:00→20:08)
[2018-06-21] MEDS: NEOMY SULF/BACITRAC ZN/POLY 15 GM TUBE TP SCH ×3 (09:00→20:08)
[2018-06-21] MEDS: TRILEPTAL GT SCH ×2 (09:16→20:08)
[2018-06-21] MEDS: LEVETIRACETAM SOL (5 ML) 100 MG/ML UDC GT SCH ×2 (09:16→20:08)
[2018-06-21] MEDS: FERROUS SULFATE - FOR SA ONLY 330 MG/7.5 ML UDC GT SCH ×2 (09:16→17:21)
[2018-06-21] MEDS: ACIDOPHILUS/BULGARICUS 1 EACH TAB.CHEW GT SCH ×2 (09:18→17:21)
[2018-06-21] MEDS: PROSOURCE DIETARY LIQUID 30 ML LIQUID GT SCH ×2 (09:18→17:21)
[2018-06-21] MEDS: MULTIVIT W/MINERALS 1 TAB TABLET GT SCH (09:18)
[2018-06-21] MEDS: CALCIUM CARBONATE 500 MG TAB.CHEW GT SCH ×2 (09:19→17:21)
[2018-06-21] MEDS: BALM TP SCH ×2 (09:20→20:08)
[2018-06-21] MEDS: TRIAMCINOLONE ACETONIDE 0.025% 15 GM TUBE TP SCH ×2 (09:20→20:08)
[2018-06-21] MEDS: AMOX/CLAVULANATE 875 MG TABLET PO SCH ×2 (11:00→23:00)
--- NOTE | 2018-06-21 12:34 | NUR ---
RT RECD PT TRACHED INTACT & SECURED ON MECH VENT APRIL ORDERED SETTINGS ALARMS ON AND AUDIBLE BAG AND MASK AT HOB VENT PLUGGED IN THE RED OUTLET. SX THICK YELLOW SMALL SECRETIONS TXS GIVEN NO ADVERSE REACTION NOTED ATT NO RESP DISTRESS NOTED ATT WILL CONT TO MONITOR
[2018-06-21 13:31] VITALS: BP 125/69
[2018-06-21 19:47] VITALS: BP 129/65
[2018-06-21] MEDS: ASCORBIC ACID 500 MG TABLET GT SCH (20:08)
[2018-06-21] MEDS: GLUCERNA 1.2 1,000 ML BOTTLE GT PRN (22:38)
--- NOTE | 2018-06-22 00:07 | NUR ---
PT REC'D TRACHED ON VENT SETTINGS CHARTED, PT AWAKE AND RESPONSIVE TO PAIN, NO SOB, NO RESPIRATORY DISTRESS NOTED AT THIS TIME, TRACH TUBE PATENT, SECURE, IN PLACE, AMBU BAG @ HOB, VENT ALARMS ON AND AUDIBLE, PT SUCTIONED W SMALL AMOUNT OF THICK PALE YELLOW SECRETIONS, TX GIVEN WITH NO ADVERSE REACTION, WILL CONTINUE TO MONITOR. Addendum: 06/22/18 at 0008 by MERLIN FARAH RT Amended: Links added.
[2018-06-22] MEDS: ALBUTEROL FS 2.5 MG/3 ML VIAL.NEB NEB SCH ×4 (01:33→18:59)
[2018-06-22] MEDS: GABAPENTIN 300 MG CAPSULE GT SCH ×3 (05:02→20:13)
[2018-06-22] MEDS: DEXILANT 30 MG GT SCH (05:02)
[2018-06-22] MEDS: BLOOD SUGAR DIAGNOSTIC 1 EACH STRIP IN SCH ×2 (05:55→17:43)
[2018-06-22 07:40] VITALS: BP 125/73
[2018-06-22] MEDS: SIMETHICONE SUSP 40 MG/0.6 ML BOTTLE GT SCH ×2 (08:27→20:13)
[2018-06-22] MEDS: LEVETIRACETAM SOL (5 ML) 100 MG/ML UDC GT SCH ×2 (08:28→20:13)
[2018-06-22] MEDS: PROSOURCE DIETARY LIQUID 30 ML LIQUID GT SCH ×2 (08:28→16:50)
[2018-06-22] MEDS: MULTIVIT W/MINERALS 1 TAB TABLET GT SCH (08:28)
[2018-06-22] MEDS: ACIDOPHILUS/BULGARICUS 1 EACH TAB.CHEW GT SCH ×2 (08:28→16:50)
[2018-06-22] MEDS: CALCIUM CARBONATE 500 MG TAB.CHEW GT SCH ×2 (08:28→16:50)
[2018-06-22] MEDS: FERROUS SULFATE - FOR SA ONLY 330 MG/7.5 ML UDC GT SCH ×2 (08:28→16:50)
[2018-06-22] MEDS: TRILEPTAL GT SCH ×2 (08:28→20:13)
[2018-06-22] MEDS: HYDROGEN PEROXIDE 480 ML BOTTLE TP SCH ×2 (09:00→20:14)
[2018-06-22] MEDS: Z GUARD REMEDY 4 OZ OINT TP SCH ×2 (09:00→20:14)
[2018-06-22] MEDS: BALM TP SCH ×2 (09:00→20:13)
[2018-06-22] MEDS: NYSTATIN TOP POWDER 15 GM BOTTLE TP SCH ×2 (09:00→20:14)
[2018-06-22] MEDS: TRIAMCINOLONE ACETONIDE 0.025% 15 GM TUBE TP SCH ×2 (09:00→20:13)
[2018-06-22] MEDS: NEOMY SULF/BACITRAC ZN/POLY 15 GM TUBE TP SCH ×3 (09:00→20:14)
[2018-06-22] MEDS: AMOX/CLAVULANATE 875 MG TABLET PO SCH ×2 (11:00→23:35)
[2018-06-22] MEDS: INSULIN REGULAR, HUMAN 100 UNIT/ML 3 ML VIAL SQ PRN (17:43)
--- NOTE | 2018-06-22 19:01 | NUR ---
PT REC'D TRACHED ON VENT SETTINGS CHARTED, PT RESPONSIVE TO PAIN, NO SOB, NO RESPIRATORY DISTRESS NOTED AT THIS TIME, TRACH TUBE PATENT, SECURE, IN PLACE, AMBU BAG @ HOB, VENT ALARMS ON AND AUDIBLE, PT SUCTIONED W SMALL AMOUNT OF THICK PALE YELLOW SECRETIONS, TX GIVEN WITH NO ADVERSE REACTION, WILL CONTINUE TO MONITOR. Addendum: 06/22/18 at 1901 by MERLIN FARAH RT Amended: Links added.
[2018-06-22] MEDS: ASCORBIC ACID 500 MG TABLET GT SCH (20:13)
[2018-06-22 20:44] VITALS: BP 118/61
[2018-06-23] MEDS: ALBUTEROL FS 2.5 MG/3 ML VIAL.NEB NEB SCH ×4 (01:01→19:24)
[2018-06-23] MEDS: DEXILANT 30 MG GT SCH (04:57)
[2018-06-23] MEDS: GABAPENTIN 300 MG CAPSULE GT SCH ×3 (04:57→20:20)
[2018-06-23] MEDS: BLOOD SUGAR DIAGNOSTIC 1 EACH STRIP IN SCH ×2 (06:02→18:32)
--- NOTE | 2018-06-23 07:21 | NUR ---
PT RECD TRACHED ON [facility] VENT. NO RESP DISTRESS OR SOB NOTED. TRACH PATENT AND SECURED. SX'D FOR THICK MOD AMT OF PALE YELLOW SECRETIONS. ALARMS ARE SET AND AUDIBLE. VENT PLUGGED INTO RED OUTLET. AMBU BAG BEDSIDE. WILL CONTINUE TO MONITOR. Addendum: 06/23/18 at 0858 by LADAN WICK RT Amended: Links added.
[2018-06-23 07:46] VITALS: BP 102/65
[2018-06-23] MEDS: SIMETHICONE SUSP 40 MG/0.6 ML BOTTLE GT SCH ×2 (08:24→20:20)
[2018-06-23] MEDS: FERROUS SULFATE - FOR SA ONLY 330 MG/7.5 ML UDC GT SCH ×2 (08:30→16:47)
[2018-06-23] MEDS: TRILEPTAL GT SCH ×2 (08:31→20:20)
[2018-06-23] MEDS: ACIDOPHILUS/BULGARICUS 1 EACH TAB.CHEW GT SCH ×2 (08:31→16:47)
[2018-06-23] MEDS: LEVETIRACETAM SOL (5 ML) 100 MG/ML UDC GT SCH ×2 (08:31→20:20)
[2018-06-23] MEDS: PROSOURCE DIETARY LIQUID 30 ML LIQUID GT SCH ×2 (08:32→16:47)
[2018-06-23] MEDS: MULTIVIT W/MINERALS 1 TAB TABLET GT SCH (08:32)
[2018-06-23] MEDS: CALCIUM CARBONATE 500 MG TAB.CHEW GT SCH ×2 (08:32→16:47)
[2018-06-23] MEDS: TRIAMCINOLONE ACETONIDE 0.025% 15 GM TUBE TP SCH ×2 (09:00→20:21)
[2018-06-23] MEDS: NEOMY SULF/BACITRAC ZN/POLY 15 GM TUBE TP SCH ×2 (09:00→20:21)
[2018-06-23] MEDS: Z GUARD REMEDY 4 OZ OINT TP SCH ×2 (09:00→20:21)
[2018-06-23] MEDS: NYSTATIN TOP POWDER 15 GM BOTTLE TP SCH ×2 (09:00→20:21)
[2018-06-23] MEDS: HYDROGEN PEROXIDE 480 ML BOTTLE TP SCH ×2 (09:00→20:21)
[2018-06-23] MEDS: BALM TP SCH ×2 (09:00→20:21)
[2018-06-23] MEDS: AMOX/CLAVULANATE 875 MG TABLET PO SCH ×2 (11:00→23:44)
[2018-06-23] MEDS: INSULIN REGULAR, HUMAN 100 UNIT/ML 3 ML VIAL SQ PRN (18:32)
[2018-06-23 19:40] VITALS: BP 110/70
--- NOTE | 2018-06-23 20:05 | NUR ---
RT NOTE PT RECEIVED ON [facility] VENT ON THE FOLLOWING NOTED SETTINGS. NO RESP DISTRESS OR SOB NOTED. PT SUCTIONED: MOD WHITE/YELLOW SECRETIONS. BREATHING TX GIVEN, NO ADVERSE REACTIONS NOTED AT THIS TIME. VENT IS PLUGGED INTO RED OUTLET. ALARMS ARE ON AND AUDIBLE. AMBU BAG AND SPARE TRACH ARE AT BEDSIDE. WILL CONT TO MONITOR. Addendum: 06/23/18 at 2007 by MARLA ALCOCER RT Amended: Links added.
[2018-06-23] MEDS: ASCORBIC ACID 500 MG TABLET GT SCH (20:20)
[2018-06-24] MEDS: ALBUTEROL FS 2.5 MG/3 ML VIAL.NEB NEB SCH ×4 (00:56→19:21)
[2018-06-24] MEDS: DEXILANT 30 MG GT SCH (05:06)
[2018-06-24] MEDS: GABAPENTIN 300 MG CAPSULE GT SCH ×3 (05:06→20:29)
[2018-06-24] MEDS: GLUCERNA 1.2 1,000 ML BOTTLE GT PRN (05:58)
[2018-06-24] MEDS: BLOOD SUGAR DIAGNOSTIC 1 EACH STRIP IN SCH ×2 (06:13→17:34)
[2018-06-24] MEDS: INSULIN REGULAR, HUMAN 100 UNIT/ML 3 ML VIAL SQ PRN (06:14)
[2018-06-24] MEDS: SIMETHICONE SUSP 40 MG/0.6 ML BOTTLE GT SCH ×2 (08:00→20:29)
[2018-06-24 08:17] VITALS: BP 132/78
[2018-06-24] MEDS: MULTIVIT W/MINERALS 1 TAB TABLET GT SCH (09:00)
[2018-06-24] MEDS: NEOMY SULF/BACITRAC ZN/POLY 15 GM TUBE TP SCH ×2 (09:00→20:30)
[2018-06-24] MEDS: Z GUARD REMEDY 4 OZ OINT TP SCH ×2 (09:00→20:30)
[2018-06-24] MEDS: CALCIUM CARBONATE 500 MG TAB.CHEW GT SCH ×2 (09:00→16:38)
[2018-06-24] MEDS: LEVETIRACETAM SOL (5 ML) 100 MG/ML UDC GT SCH ×2 (09:00→20:29)
[2018-06-24] MEDS: HYDROGEN PEROXIDE 480 ML BOTTLE TP SCH ×2 (09:00→20:29)
[2018-06-24] MEDS: ACIDOPHILUS/BULGARICUS 1 EACH TAB.CHEW GT SCH ×2 (09:00→16:38)
[2018-06-24] MEDS: NYSTATIN TOP POWDER 15 GM BOTTLE TP SCH ×2 (09:00→20:29)
[2018-06-24] MEDS: PROSOURCE DIETARY LIQUID 30 ML LIQUID GT SCH ×2 (09:00→16:38)
[2018-06-24] MEDS: BALM TP SCH ×2 (09:00→20:29)
[2018-06-24] MEDS: FERROUS SULFATE - FOR SA ONLY 330 MG/7.5 ML UDC GT SCH ×2 (09:00→16:38)
[2018-06-24] MEDS: TRIAMCINOLONE ACETONIDE 0.025% 15 GM TUBE TP SCH ×2 (09:00→20:29)
[2018-06-24] MEDS: TRILEPTAL GT SCH ×2 (09:00→20:29)
[2018-06-24] MEDS: AMOX/CLAVULANATE 875 MG TABLET PO SCH ×2 (11:00→23:00)
[2018-06-24 19:20] VITALS: BP 116/75
--- NOTE | 2018-06-24 19:21 | NUR ---
RT NOTE: RECEIVED TRACH PT ON [facility] VENT ON NOTED SETTINGS PER MD ORDERS. TRACH IS PATENT AND SECURED. UTILITY LOCATOR DONE. AMBU BAG @ BEDSIDE. Q6 BREATHING TX GIVEN WITH NO ADVERSE REACTION NOTED. SX DONE PRN. VENT PLUGGED INTO RED OUTLET. ALARMS ON AND AUDIBLE. NO RESP DISTRESS AT THIS TIME. WILL CONT TO MONITOR PT. Addendum: 06/25/18 at 0253 by QIANA MARY RT Amended: Links added.
[2018-06-24] MEDS: ASCORBIC ACID 500 MG TABLET GT SCH (20:29)
[2018-06-25] MEDS: ALBUTEROL FS 2.5 MG/3 ML VIAL.NEB NEB SCH ×4 (01:18→19:17)
[2018-06-25] MEDS: GABAPENTIN 300 MG CAPSULE GT SCH ×3 (05:35→20:26)
[2018-06-25] MEDS: INSULIN REGULAR, HUMAN 100 UNIT/ML 3 ML VIAL SQ PRN (05:35)
[2018-06-25] MEDS: DEXILANT 30 MG GT SCH (05:35)
[2018-06-25] MEDS: BLOOD SUGAR DIAGNOSTIC 1 EACH STRIP IN SCH ×2 (05:35→17:43)
[2018-06-25] MEDS: GLUCERNA 1.2 1,000 ML BOTTLE GT PRN (05:40)
[2018-06-25 07:59] VITALS: BP 111/68
[2018-06-25] MEDS: SIMETHICONE SUSP 40 MG/0.6 ML BOTTLE GT SCH ×2 (08:00→20:25)
[2018-06-25] MEDS: NYSTATIN TOP POWDER 15 GM BOTTLE TP SCH ×2 (09:00→20:26)
[2018-06-25] MEDS: NEOMY SULF/BACITRAC ZN/POLY 15 GM TUBE TP SCH ×2 (09:00→20:26)
[2018-06-25] MEDS: HYDROGEN PEROXIDE 480 ML BOTTLE TP SCH ×2 (09:00→20:26)
[2018-06-25] MEDS: Z GUARD REMEDY 4 OZ OINT TP SCH ×2 (09:00→20:26)
[2018-06-25] MEDS: BALM TP SCH ×2 (09:00→20:26)
[2018-06-25] MEDS: ACIDOPHILUS/BULGARICUS 1 EACH TAB.CHEW GT SCH ×2 (09:58→17:43)
[2018-06-25] MEDS: FERROUS SULFATE - FOR SA ONLY 330 MG/7.5 ML UDC GT SCH ×2 (09:58→17:43)
[2018-06-25] MEDS: PROSOURCE DIETARY LIQUID 30 ML LIQUID GT SCH ×2 (09:58→17:43)
[2018-06-25] MEDS: TRILEPTAL GT SCH ×2 (09:58→20:25)
[2018-06-25] MEDS: LEVETIRACETAM SOL (5 ML) 100 MG/ML UDC GT SCH ×2 (09:58→20:26)
[2018-06-25] MEDS: TRIAMCINOLONE ACETONIDE 0.025% 15 GM TUBE TP SCH ×2 (09:59→20:26)
[2018-06-25] MEDS: CALCIUM CARBONATE 500 MG TAB.CHEW GT SCH ×2 (09:59→17:43)
[2018-06-25] MEDS: MULTIVIT W/MINERALS 1 TAB TABLET GT SCH (09:59)
--- NOTE | 2018-06-25 15:00 | NUR ---
INTERDISCIPLINARY PLAN OF CARE CONFERENCE was held today. Resident's sister Beckie Chu was not present to attend today's IDT meeting. Dr. Felix and the interdisciplinary team discussed the current plan of care in detail. Current orders as well as treatments and medications were reviewed. Resident completed ATB for UTI, remain on contact isolation for ESBL urine. Dr. Felix gave an order to reculture urine to clear her from isolation. Resident has R & L buttock excoriation and z-guard is dry and responding to treatment, open skin at the back of patient's head is healed, no open area. No other order given. Order carried out. Resident's sister Beckie informed of what was discussed in the meeting.
[2018-06-25] MEDS: MAGNESIUM HYDROXIDE 30 ML UDC GT PRN (17:44)
[2018-06-25] MEDS: ASCORBIC ACID 500 MG TABLET GT SCH (20:26)
--- NOTE | 2018-06-25 20:36 | NUR ---
PATIENT WAS RECEIVED ON CONTINUOUS VENT SUPPORT ON NOTED VENT SETTINGS. WELDING MACHINE OPERATOR HELPER GAS DONE. AMBU BAG @ BEDSIDE. Q6 BREATHING TX GIVEN WITH NO ADVERSE REACTION NOTED. SUCTION DONE PRN.TRACH TUBE PATENT AND SECURED. ALARMS ON AND AUDIBLE. NO RESPIRATORY DISTRESS NOTED AT THIS TIME. WILL CONTINUE TO MONITOR PATIENT. Addendum: 06/25/18 at 2039 by DIEGO BRADY RT Amended: Links added.
[2018-06-25 21:17] VITALS: BP 136/77
[2018-06-26] MEDS: ALBUTEROL FS 2.5 MG/3 ML VIAL.NEB NEB SCH ×4 (01:20→19:05)
[2018-06-26] MEDS: DEXILANT 30 MG GT SCH (05:24)
[2018-06-26] MEDS: GABAPENTIN 300 MG CAPSULE GT SCH ×3 (05:24→20:58)
[2018-06-26] MEDS: BLOOD SUGAR DIAGNOSTIC 1 EACH STRIP IN SCH ×2 (06:14→18:24)
[2018-06-26] MEDS: INSULIN REGULAR, HUMAN 100 UNIT/ML 3 ML VIAL SQ PRN (06:15)
[2018-06-26] MEDS: GLUCERNA 1.2 1,000 ML BOTTLE GT PRN (06:57)
--- NOTE | 2018-06-26 07:35 | NUR ---
pt rec'd trached on [facility] vent on ac mode. no resp distress or sob noted. trach patent and secured. sx'd for thick mod amt of pale yellow secretions. partnership manager cuff pressure noted. alarms are set audible. vent plugged into red outlet. ambu bag bedside. will continue to monitor. Addendum: 06/26/18 at 0833 by LADAN WICK RT Amended: Links added.
[2018-06-26 07:49] VITALS: BP 129/73
[2018-06-26] MEDS: SIMETHICONE SUSP 40 MG/0.6 ML BOTTLE GT SCH ×2 (08:00→20:58)
[2018-06-26] MEDS: HYDROGEN PEROXIDE 480 ML BOTTLE TP SCH ×2 (09:00→20:59)
[2018-06-26] MEDS: TRILEPTAL GT SCH ×2 (09:00→20:58)
[2018-06-26] MEDS: LEVETIRACETAM SOL (5 ML) 100 MG/ML UDC GT SCH ×2 (09:00→20:58)
[2018-06-26] MEDS: ACIDOPHILUS/BULGARICUS 1 EACH TAB.CHEW GT SCH ×2 (09:00→17:00)
[2018-06-26] MEDS: NEOMY SULF/BACITRAC ZN/POLY 15 GM TUBE TP SCH ×2 (09:00→20:59)
[2018-06-26] MEDS: TRIAMCINOLONE ACETONIDE 0.025% 15 GM TUBE TP SCH ×2 (09:00→20:59)
[2018-06-26] MEDS: PROSOURCE DIETARY LIQUID 30 ML LIQUID GT SCH ×2 (09:00→17:00)
[2018-06-26] MEDS: NYSTATIN TOP POWDER 15 GM BOTTLE TP SCH ×2 (09:00→20:59)
[2018-06-26] MEDS: MULTIVIT W/MINERALS 1 TAB TABLET GT SCH (09:00)
[2018-06-26] MEDS: FERROUS SULFATE - FOR SA ONLY 330 MG/7.5 ML UDC GT SCH ×2 (09:00→17:00)
[2018-06-26] MEDS: Z GUARD REMEDY 4 OZ OINT TP SCH ×2 (09:00→20:59)
[2018-06-26] MEDS: BALM TP SCH ×2 (09:00→20:59)
[2018-06-26] MEDS: CALCIUM CARBONATE 500 MG TAB.CHEW GT SCH ×2 (09:00→17:00)
--- NOTE | 2018-06-26 19:42 | NUR ---
RT NOTE PT RECEIVED ON [facility] VENT ON THE FOLLOWING NOTED SETTINGS. NO RESP DISTRESS OR SOB NOTED AT THIS TIME. PT SUCTIONED: MOD THIN WHITE/YELLOW SECRETIONS NOTED. BREATHING TX GIVEN, NO ADVERSE REACTIONS NOTED. VENT IS PLUGGED INTO RED OUTLET. ALARMS ARE ON AND AUDIBLE. AMBU BAG AND SPARE TRACH ARE AT BEDSIDE. WILL CONT TO MONITOR PT. Addendum: 06/26/18 at 1944 by MARLA ALCOCER RT Amended: Links added.
[2018-06-26 20:11] VITALS: BP 117/62
[2018-06-26] MEDS: ASCORBIC ACID 500 MG TABLET GT SCH (20:58)
[2018-06-27] MEDS: ALBUTEROL FS 2.5 MG/3 ML VIAL.NEB NEB SCH ×4 (01:17→19:31)
[2018-06-27] MEDS: GABAPENTIN 300 MG CAPSULE GT SCH ×3 (05:17→20:04)
[2018-06-27] MEDS: BLOOD SUGAR DIAGNOSTIC 1 EACH STRIP IN SCH ×2 (05:17→18:04)
[2018-06-27] MEDS: DEXILANT 30 MG GT SCH (05:17)
[2018-06-27] MEDS: INSULIN REGULAR, HUMAN 100 UNIT/ML 3 ML VIAL SQ PRN ×2 (05:18→18:05)
[2018-06-27 07:28] VITALS: BP 120/75
--- NOTE | 2018-06-27 07:54 | NUR ---
RT PATIENT REC'D TRACHED ON [facility] VENT WITH ORDERED SETTINGS APRIL WELL. VENT ALARMS CHECKED + AUDIBLE. CUFF PRESSURE CHECKED SEXTON HELPER. PATIENTS AIRWAY SUCTIONED AND PATENT. SMALL/MOD AMT OF PALE SEMITHICK SECRETIONS. B/S LUIS. AMBU BAG AT HOB Addendum: 06/27/18 at 1625 by ELIZABETH CAPONE RT Amended: Links added.
[2018-06-27] MEDS: SIMETHICONE SUSP 40 MG/0.6 ML BOTTLE GT SCH ×2 (07:58→19:51)
[2018-06-27] MEDS: FERROUS SULFATE - FOR SA ONLY 330 MG/7.5 ML UDC GT SCH ×2 (08:00→16:25)
[2018-06-27] MEDS: LEVETIRACETAM SOL (5 ML) 100 MG/ML UDC GT SCH ×2 (08:01→20:04)
[2018-06-27] MEDS: ACIDOPHILUS/BULGARICUS 1 EACH TAB.CHEW GT SCH ×2 (08:02→16:25)
[2018-06-27] MEDS: CALCIUM CARBONATE 500 MG TAB.CHEW GT SCH ×2 (08:03→16:27)
[2018-06-27] MEDS: Z GUARD REMEDY 4 OZ OINT TP SCH ×2 (08:04→20:06)
[2018-06-27] MEDS: NEOMY SULF/BACITRAC ZN/POLY 15 GM TUBE TP SCH ×2 (08:05→20:05)
[2018-06-27] MEDS: HYDROGEN PEROXIDE 480 ML BOTTLE TP SCH ×2 (08:05→20:05)
[2018-06-27] MEDS: NYSTATIN TOP POWDER 15 GM BOTTLE TP SCH ×2 (08:05→20:05)
[2018-06-27] MEDS: TRIAMCINOLONE ACETONIDE 0.025% 15 GM TUBE TP SCH ×2 (08:05→20:04)
[2018-06-27] MEDS: BALM TP SCH ×2 (08:05→20:04)
[2018-06-27] MEDS: TRILEPTAL GT SCH ×2 (08:10→20:04)
[2018-06-27] MEDS: MULTIVIT W/MINERALS 1 TAB TABLET GT SCH (08:16)
[2018-06-27] MEDS: PROSOURCE DIETARY LIQUID 30 ML LIQUID GT SCH ×2 (08:16→16:25)
[2018-06-27] MEDS: GLUCERNA 1.2 1,000 ML BOTTLE GT PRN (14:06)
[2018-06-27 19:52] VITALS: BP 127/84
[2018-06-27 20:00] VITALS: BP 127/84
[2018-06-27] MEDS: ASCORBIC ACID 500 MG TABLET GT SCH (20:04)
[2018-06-27 20:17] VITALS: BP 114/61
[2018-06-27 20:20] VITALS: BP 114/61
[2018-06-28] MEDS: ALBUTEROL FS 2.5 MG/3 ML VIAL.NEB NEB SCH ×4 (01:49→18:59)
[2018-06-28] MEDS: GABAPENTIN 300 MG CAPSULE GT SCH ×3 (04:52→20:11)
[2018-06-28] MEDS: DEXILANT 30 MG GT SCH (05:03)
[2018-06-28] MEDS: BLOOD SUGAR DIAGNOSTIC 1 EACH STRIP IN SCH ×2 (06:01→18:20)
--- NOTE | 2018-06-28 06:02 | NUR ---
bs 146 per sliding scale no insulin needed at this time.
[2018-06-28 08:00] VITALS: BP 121/74
--- NOTE | 2018-06-28 08:01 | NUR ---
PT REC'D TRACHED ON [facility] VENT ON AC MODE. NO RESP DISTRESS OR SOB NOTED. TRACH PATENT AND SECURED. SX'D FOR THICK SCANT AMT OF CLEAR SECRETIONS. ALARMS ARE SET AND AUDIBLE. VENT PLUGGED INTO RED OUTLET. AMBU BAG BEDSIDE. Addendum: 06/28/18 at 0912 by LADAN WICK RT Amended: Links added.
[2018-06-28] MEDS: SIMETHICONE SUSP 40 MG/0.6 ML BOTTLE GT SCH ×2 (08:56→20:11)
[2018-06-28] MEDS: FERROUS SULFATE - FOR SA ONLY 330 MG/7.5 ML UDC GT SCH ×2 (08:57→17:38)
[2018-06-28] MEDS: TRILEPTAL GT SCH ×2 (08:57→20:11)
[2018-06-28] MEDS: ACIDOPHILUS/BULGARICUS 1 EACH TAB.CHEW GT SCH ×2 (08:59→17:38)
[2018-06-28] MEDS: PROSOURCE DIETARY LIQUID 30 ML LIQUID GT SCH ×2 (08:59→17:38)
[2018-06-28] MEDS: LEVETIRACETAM SOL (5 ML) 100 MG/ML UDC GT SCH ×2 (08:59→20:11)
[2018-06-28] MEDS: CALCIUM CARBONATE 500 MG TAB.CHEW GT SCH ×2 (09:00→17:38)
[2018-06-28] MEDS: HYDROGEN PEROXIDE 480 ML BOTTLE TP SCH ×2 (09:00→20:41)
[2018-06-28] MEDS: BALM TP SCH ×2 (09:00→20:41)
[2018-06-28] MEDS: NEOMY SULF/BACITRAC ZN/POLY 15 GM TUBE TP SCH ×2 (09:00→20:41)
[2018-06-28] MEDS: TRIAMCINOLONE ACETONIDE 0.025% 15 GM TUBE TP SCH ×2 (09:00→20:40)
[2018-06-28] MEDS: NYSTATIN TOP POWDER 15 GM BOTTLE TP SCH ×2 (09:00→20:41)
[2018-06-28] MEDS: Z GUARD REMEDY 4 OZ OINT TP SCH ×2 (09:00→20:41)
[2018-06-28] MEDS: MULTIVIT W/MINERALS 1 TAB TABLET GT SCH (09:05)
[2018-06-28] MEDS: INSULIN REGULAR, HUMAN 100 UNIT/ML 3 ML VIAL SQ PRN (18:20)
[2018-06-28] MEDS: GLUCERNA 1.2 1,000 ML BOTTLE GT PRN (19:04)
--- NOTE | 2018-06-28 19:35 | NUR ---
RT NOTE PT RECEIVED ON [facility] VENT ON THE FOLLOWING NOTED SETTINGS. NO RESP DISTRESS OR SOB NOTED AT THIS TIME. BREATHING TX GIVEN, NO ADVERSE REACTIONS NOTED. PT SUCTIONED: MOD THIN WHITE SECRETIONS. VENT IS PLUGGED INTO RED OUTLET. ALARMS ARE ON AND AUDIBLE. SPARE TRACH AND AMBU BAG ARE AT BEDSIDE. WILL CONT TO MONITOR PT. Addendum: 06/28/18 at 1937 by MARLA ALCOCER RT Amended: Links added.
[2018-06-28] MEDS: ASCORBIC ACID 500 MG TABLET GT SCH (20:11)
[2018-06-29] MEDS: ALBUTEROL FS 2.5 MG/3 ML VIAL.NEB NEB SCH ×4 (01:18→20:24)
[2018-06-29] MEDS: DEXILANT 30 MG GT SCH (05:07)
[2018-06-29] MEDS: GABAPENTIN 300 MG CAPSULE GT SCH ×3 (05:07→20:11)
[2018-06-29] MEDS: BLOOD SUGAR DIAGNOSTIC 1 EACH STRIP IN SCH ×2 (05:36→17:26)
[2018-06-29] MEDS: INSULIN REGULAR, HUMAN 100 UNIT/ML 3 ML VIAL SQ PRN ×2 (05:36→17:27)
[2018-06-29] MEDS: MAGNESIUM HYDROXIDE 30 ML UDC GT PRN (06:44)
[2018-06-29 07:49] VITALS: BP 127/68
--- NOTE | 2018-06-29 07:56 | NUR ---
Female trach pt received on a mechanical vent. Pt fariha is secure. Vent is plugged into a red outlet, alarms are set and audible, and BMV is at bedside. Addendum: 06/29/18 at 0757 by MARKIE PINO RT Amended: Links added.
[2018-06-29] MEDS: SIMETHICONE SUSP 40 MG/0.6 ML BOTTLE GT SCH ×2 (08:00→20:11)
[2018-06-29] MEDS: HYDROGEN PEROXIDE 480 ML BOTTLE TP SCH ×2 (09:00→20:11)
[2018-06-29] MEDS: TRIAMCINOLONE ACETONIDE 0.025% 15 GM TUBE TP SCH ×2 (09:00→20:11)
[2018-06-29] MEDS: Z GUARD REMEDY 4 OZ OINT TP SCH ×2 (09:00→20:12)
[2018-06-29] MEDS: BALM TP SCH ×2 (09:00→20:11)
[2018-06-29] MEDS: NEOMY SULF/BACITRAC ZN/POLY 15 GM TUBE TP SCH ×2 (09:00→20:11)
[2018-06-29] MEDS: NYSTATIN TOP POWDER 15 GM BOTTLE TP SCH ×2 (09:00→20:11)
[2018-06-29] MEDS: ACIDOPHILUS/BULGARICUS 1 EACH TAB.CHEW GT SCH ×2 (09:18→17:10)
[2018-06-29] MEDS: CALCIUM CARBONATE 500 MG TAB.CHEW GT SCH ×2 (09:18→17:10)
[2018-06-29] MEDS: FERROUS SULFATE - FOR SA ONLY 330 MG/7.5 ML UDC GT SCH ×2 (09:18→17:10)
[2018-06-29] MEDS: MULTIVIT W/MINERALS 1 TAB TABLET GT SCH (09:18)
[2018-06-29] MEDS: LEVETIRACETAM SOL (5 ML) 100 MG/ML UDC GT SCH ×2 (09:18→20:11)
[2018-06-29] MEDS: PROSOURCE DIETARY LIQUID 30 ML LIQUID GT SCH ×2 (09:18→17:10)
[2018-06-29] MEDS: TRILEPTAL GT SCH ×2 (09:18→20:11)
--- NOTE | 2018-06-29 12:30 | NUR ---
Relayed urine culture result to NAN Loredo. Also notified retail client manager Didi regarding new urine culture result. She said she will review pt's contact isolation. NAN Loredo ordered to give Levaquin 500 mg GT daily for 7 days for Pseudomonas aeruginosa in the urine.
--- NOTE | 2018-06-29 13:30 | NUR ---
Received order to do BMP to renally adjust pt's Levaquin.
[2018-06-29 15:16] LABS: CALCIUM, SERUM 9.5 mg/dL (8.5-10.1); POTASSIUM 3.7 mmol/L (3.5-5.1)
--- NOTE | 2018-06-29 15:45 | NUR ---
Received order to give Levaquin 500 mg GT x 1 today, then Levaquin 250 mg GT daily for 6 days. CONDITIONING COACH Gertrude aware of pharmacy recommendation to change dosage. Ashish Butts.
[2018-06-29] MEDS ORDERED: LEVOFLOXACIN (500MG) 500 MG TABLET GT ONE (17:00)
[2018-06-29] MEDS: ASCORBIC ACID 500 MG TABLET GT SCH (20:11)
[2018-06-29] MEDS: GLUCERNA 1.2 1,000 ML BOTTLE GT PRN (20:12)
[2018-06-30 01:13] VITALS: BP 120/67
[2018-06-30] MEDS: ALBUTEROL FS 2.5 MG/3 ML VIAL.NEB NEB SCH ×4 (01:26→19:19)
[2018-06-30] MEDS: GABAPENTIN 300 MG CAPSULE GT SCH ×3 (05:12→20:23)
[2018-06-30] MEDS: DEXILANT 30 MG GT SCH (05:12)
[2018-06-30] MEDS: BLOOD SUGAR DIAGNOSTIC 1 EACH STRIP IN SCH ×2 (05:41→17:53)
[2018-06-30] MEDS: INSULIN REGULAR, HUMAN 100 UNIT/ML 3 ML VIAL SQ PRN ×2 (05:41→17:57)
[2018-06-30 07:35] VITALS: BP 137/89
[2018-06-30] MEDS: SIMETHICONE SUSP 40 MG/0.6 ML BOTTLE GT SCH ×2 (08:00→20:23)
--- NOTE | 2018-06-30 08:30 | NUR ---
RT RECD PT TRACHED INTACT AND SECURED ON MECH VENT APRIL ORDERED SETTINGS ALARMS ON AND AUDIBLE BAG AND MASK AT HOB SX THICK YELLOW SECRETIONS.VENT PLUGGED IN RED OUTLET AFTER PT TAKEN TO SHOWER TX GIVEN APRIL WELL NO ADVERSE REACTION NOTED ATT NO RESP DISTRESS WILL CONT TO MONITOR
[2018-06-30] MEDS: ACIDOPHILUS/BULGARICUS 1 EACH TAB.CHEW GT SCH ×2 (09:05→16:49)
[2018-06-30] MEDS: FERROUS SULFATE - FOR SA ONLY 330 MG/7.5 ML UDC GT SCH ×2 (09:05→16:49)
[2018-06-30] MEDS: TRILEPTAL GT SCH ×2 (09:05→20:23)
[2018-06-30] MEDS: CALCIUM CARBONATE 500 MG TAB.CHEW GT SCH ×2 (09:05→16:49)
[2018-06-30] MEDS: PROSOURCE DIETARY LIQUID 30 ML LIQUID GT SCH ×2 (09:05→16:49)
[2018-06-30] MEDS: LEVETIRACETAM SOL (5 ML) 100 MG/ML UDC GT SCH ×2 (09:05→20:23)
[2018-06-30] MEDS: MULTIVIT W/MINERALS 1 TAB TABLET GT SCH (09:05)
[2018-06-30] MEDS: TRIAMCINOLONE ACETONIDE 0.025% 15 GM TUBE TP SCH ×2 (09:06→20:23)
[2018-06-30] MEDS: HYDROGEN PEROXIDE 480 ML BOTTLE TP SCH ×2 (09:06→20:23)
[2018-06-30] MEDS: Z GUARD REMEDY 4 OZ OINT TP SCH ×2 (09:06→20:23)
[2018-06-30] MEDS: NYSTATIN TOP POWDER 15 GM BOTTLE TP SCH ×2 (09:06→20:23)
[2018-06-30] MEDS: NEOMY SULF/BACITRAC ZN/POLY 15 GM TUBE TP SCH ×2 (09:06→20:23)
[2018-06-30] MEDS: BALM TP SCH ×2 (09:06→20:23)
--- NOTE | 2018-06-30 09:30 | NUR ---
Spoke with Didi, infection control nurse and indicated that after reviewing patient's urine culture result said that patient's isolation can be discontinue. Notified Dr. Felix and gave an order to DC contact isolation after clearance obtain from infection control nurse. Resident showered in the shower room while EVS did a terminal cleaning of the room. Beckie (sister) informed of new order. Appreciated the call.
[2018-06-30] MEDS: LEVOFLOXACIN (250MG) 250 MG TABLET GT SCH (16:49)
--- NOTE | 2018-06-30 19:19 | NUR ---
RT NOTE: RECEIVED TRACH PT ON [facility] VENT ON NOTED SETTINGS PER MD ORDERS. TRACH IS PATENT AND SECURED. PRODUCT COORDINATOR DONE. Q6 BREATHING TX GIVEN WITH NO ADVERSE REACTION NOTED. SX DONE PRN. VENT PLUGGED INTO RED OUTLET. ALARMS ON AND AUDIBLE. NEVA BAG @ BEDSIDE. NO RESP DISTRESS AT THIS TIME. WILL CONT TO MONITOR PT. Addendum: 06/30/18 at 2221 by QIANA MARY RT Amended: Links added.
[2018-06-30] MEDS: ASCORBIC ACID 500 MG TABLET GT SCH (20:23)
[2018-06-30] MEDS: GLUCERNA 1.2 1,000 ML BOTTLE GT PRN (20:25)
[2018-06-30 21:05] VITALS: BP 119/78
[2018-07-01] MEDS: ALBUTEROL FS 2.5 MG/3 ML VIAL.NEB NEB SCH ×4 (00:51→19:29)
[2018-07-01] MEDS: DEXILANT 30 MG GT SCH (05:38)
[2018-07-01] MEDS: BLOOD SUGAR DIAGNOSTIC 1 EACH STRIP IN SCH ×2 (05:38→17:58)
[2018-07-01] MEDS: GABAPENTIN 300 MG CAPSULE GT SCH ×3 (05:38→21:45)
[2018-07-01] MEDS: INSULIN REGULAR, HUMAN 100 UNIT/ML 3 ML VIAL SQ PRN (05:39)
[2018-07-01 07:52] VITALS: BP 122/72
[2018-07-01] MEDS: SIMETHICONE SUSP 40 MG/0.6 ML BOTTLE GT SCH ×2 (08:30→20:00)
[2018-07-01] MEDS: BALM TP SCH ×2 (09:21→21:45)
[2018-07-01] MEDS: NYSTATIN TOP POWDER 15 GM BOTTLE TP SCH ×2 (09:21→21:45)
[2018-07-01] MEDS: TRIAMCINOLONE ACETONIDE 0.025% 15 GM TUBE TP SCH ×2 (09:21→21:45)
[2018-07-01] MEDS: CALCIUM CARBONATE 500 MG TAB.CHEW GT SCH ×2 (09:21→17:22)
[2018-07-01] MEDS: MULTIVIT W/MINERALS 1 TAB TABLET GT SCH (09:21)
[2018-07-01] MEDS: LEVETIRACETAM SOL (5 ML) 100 MG/ML UDC GT SCH ×2 (09:21→21:45)
[2018-07-01] MEDS: HYDROGEN PEROXIDE 480 ML BOTTLE TP SCH ×2 (09:21→21:45)
[2018-07-01] MEDS: PROSOURCE DIETARY LIQUID 30 ML LIQUID GT SCH ×2 (09:21→17:22)
[2018-07-01] MEDS: FERROUS SULFATE - FOR SA ONLY 330 MG/7.5 ML UDC GT SCH ×2 (09:21→17:22)
[2018-07-01] MEDS: ACIDOPHILUS/BULGARICUS 1 EACH TAB.CHEW GT SCH ×2 (09:21→17:22)
[2018-07-01] MEDS: TRILEPTAL GT SCH ×2 (09:21→21:45)
[2018-07-01] MEDS: Z GUARD REMEDY 4 OZ OINT TP SCH ×2 (09:22→21:45)
[2018-07-01] MEDS: NEOMY SULF/BACITRAC ZN/POLY 15 GM TUBE TP SCH ×2 (09:22→21:45)
[2018-07-01] MEDS: LEVOFLOXACIN (250MG) 250 MG TABLET GT SCH (17:22)
[2018-07-01] MEDS: GLUCERNA 1.2 1,000 ML BOTTLE GT PRN (18:13)
[2018-07-01 20:54] VITALS: BP 121/66
[2018-07-01] MEDS: ASCORBIC ACID 500 MG TABLET GT SCH (21:45)
[2018-07-02] MEDS: ALBUTEROL FS 2.5 MG/3 ML VIAL.NEB NEB SCH ×4 (01:07→19:11)
[2018-07-02] MEDS: GABAPENTIN 300 MG CAPSULE GT SCH ×3 (05:26→20:20)
[2018-07-02] MEDS: DEXILANT 30 MG GT SCH (05:26)
[2018-07-02] MEDS: INSULIN REGULAR, HUMAN 100 UNIT/ML 3 ML VIAL SQ PRN ×2 (05:26→17:23)
[2018-07-02] MEDS: BLOOD SUGAR DIAGNOSTIC 1 EACH STRIP IN SCH ×2 (05:26→17:23)
--- NOTE | 2018-07-02 07:29 | NUR ---
Received trach pt on a mechanical vent. Pt trach is secure. Vent is plugged into a red outlet, alarms are set and audible, and BMV is at bedside. Addendum: 07/02/18 at 0729 by MARKIE PINO RT Amended: Links added.
[2018-07-02 07:58] VITALS: BP 114/72
[2018-07-02] MEDS: SIMETHICONE SUSP 40 MG/0.6 ML BOTTLE GT SCH ×2 (08:00→20:19)
[2018-07-02] MEDS: TRILEPTAL GT SCH ×2 (09:50→20:19)
[2018-07-02] MEDS: ACIDOPHILUS/BULGARICUS 1 EACH TAB.CHEW GT SCH ×2 (09:50→16:52)
[2018-07-02] MEDS: CALCIUM CARBONATE 500 MG TAB.CHEW GT SCH ×2 (09:50→16:52)
[2018-07-02] MEDS: FERROUS SULFATE - FOR SA ONLY 330 MG/7.5 ML UDC GT SCH ×2 (09:50→16:52)
[2018-07-02] MEDS: PROSOURCE DIETARY LIQUID 30 ML LIQUID GT SCH ×2 (09:50→16:52)
[2018-07-02] MEDS: LEVETIRACETAM SOL (5 ML) 100 MG/ML UDC GT SCH ×2 (09:50→20:19)
[2018-07-02] MEDS: NYSTATIN TOP POWDER 15 GM BOTTLE TP SCH ×2 (09:50→20:20)
[2018-07-02] MEDS: TRIAMCINOLONE ACETONIDE 0.025% 15 GM TUBE TP SCH ×2 (09:50→20:20)
[2018-07-02] MEDS: BALM TP SCH ×2 (09:50→20:20)
[2018-07-02] MEDS: HYDROGEN PEROXIDE 480 ML BOTTLE TP SCH ×2 (09:50→20:20)
[2018-07-02] MEDS: Z GUARD REMEDY 4 OZ OINT TP SCH ×2 (09:51→20:20)
[2018-07-02] MEDS: NEOMY SULF/BACITRAC ZN/POLY 15 GM TUBE TP SCH (09:51)
[2018-07-02] MEDS: MULTIVIT W/MINERALS 1 TAB TABLET GT SCH (09:53)
--- NOTE | 2018-07-02 15:31 | NUR ---
Seen and examined by Dr. Montaño, NNO given. Patient continue on ATB Levaquin for UTI but no longer on isolation for ESBL urine. Resident's sister, brother and other family member came to visit, patient is happy and interacting with family.
--- NOTE | 2018-07-02 15:44 | NUR ---
SW introduced herself to resident's brother and asked if there was any concern or anything brother would like to discuss with SE. Brother said everything was okl. STEPHEN later also introduced herself to resident's sister Beckie Chu and asked if there was any concerns or anything she would like to discuss with SW. STEPHEN told sister she was going to communicate with her about date of July 2018 IDT mtg.
[2018-07-02] MEDS: LEVOFLOXACIN (250MG) 250 MG TABLET GT SCH (16:52)
--- NOTE | 2018-07-02 19:48 | NUR ---
RT NOTE PATIENT WAS RECEIVED ON CONTINUOUS VENT SUPPORT ON NOTED VENT SETTINGS. REMANUFACTURING TECHNICIAN DONE. AMBU BAG @ BEDSIDE. Q6 BREATHING TX GIVEN WITH NO ADVERSE REACTION NOTED. SUCTION DONE PRN.TRACH TUBE PATENT AND SECURED. ALARMS ON AND AUDIBLE. NO RESPIRATORY DISTRESS NOTED AT THIS TIME. WILL CONTINUE TO MONITOR PATIENT Addendum: 07/02/18 at 1948 by DIEGO BRADY RT Amended: Links added.
[2018-07-02 19:50] VITALS: BP 127/78
[2018-07-02] MEDS: ASCORBIC ACID 500 MG TABLET GT SCH (20:20)
[2018-07-03] MEDS: ALBUTEROL FS 2.5 MG/3 ML VIAL.NEB NEB SCH ×4 (01:11→19:10)
[2018-07-03] MEDS: GLUCERNA 1.2 1,000 ML BOTTLE GT PRN ×2 (02:29→22:38)
[2018-07-03] MEDS: DEXILANT 30 MG GT SCH (05:09)
[2018-07-03] MEDS: GABAPENTIN 300 MG CAPSULE GT SCH ×3 (05:09→20:13)
[2018-07-03] MEDS: BLOOD SUGAR DIAGNOSTIC 1 EACH STRIP IN SCH ×2 (05:37→17:34)
[2018-07-03] MEDS: INSULIN REGULAR, HUMAN 100 UNIT/ML 3 ML VIAL SQ PRN ×2 (05:38→17:34)
[2018-07-03] MEDS: MAGNESIUM HYDROXIDE 30 ML UDC GT PRN (06:31)
[2018-07-03 07:26] VITALS: BP 125/62
[2018-07-03] MEDS: SIMETHICONE SUSP 40 MG/0.6 ML BOTTLE GT SCH ×2 (08:00→20:13)
[2018-07-03] MEDS: HYDROGEN PEROXIDE 480 ML BOTTLE TP SCH ×2 (09:00→20:14)
[2018-07-03] MEDS: Z GUARD REMEDY 4 OZ OINT TP SCH ×2 (09:00→20:16)
[2018-07-03] MEDS: BALM TP SCH ×2 (09:59→20:13)
[2018-07-03] MEDS: TRILEPTAL GT SCH ×2 (09:59→20:13)
[2018-07-03] MEDS: PROSOURCE DIETARY LIQUID 30 ML LIQUID GT SCH ×2 (09:59→16:43)
[2018-07-03] MEDS: LEVETIRACETAM SOL (5 ML) 100 MG/ML UDC GT SCH ×2 (09:59→20:13)
[2018-07-03] MEDS: ACIDOPHILUS/BULGARICUS 1 EACH TAB.CHEW GT SCH ×2 (09:59→16:43)
[2018-07-03] MEDS: FERROUS SULFATE - FOR SA ONLY 330 MG/7.5 ML UDC GT SCH ×2 (09:59→16:42)
[2018-07-03] MEDS: CALCIUM CARBONATE 500 MG TAB.CHEW GT SCH ×2 (09:59→16:43)
[2018-07-03] MEDS: MULTIVIT W/MINERALS 1 TAB TABLET GT SCH (09:59)
--- NOTE | 2018-07-03 10:40 | NUR ---
PT RCVD TRACH'D ON MECHANICAL VENT WITH CHARTED SETTINGS. HHN TX GIVEN WITH NO ADVERSE REACTION NOTED. SX DONE. PT TRACH PATENT AND SECURE. ALARMS ARE ON AND AUDIBLE. VENT PLUGGED INTO RED OUTLET. AMBU BAG AT BEDSIDE. WILL CONTINUE TO MONITOR. Addendum: 07/03/18 at 1047 by MICH AVILA RT Amended: Links added.
[2018-07-03] MEDS: LEVOFLOXACIN (250MG) 250 MG TABLET GT SCH (16:43)
[2018-07-03 19:42] VITALS: BP 126/70
[2018-07-03] MEDS: ASCORBIC ACID 500 MG TABLET GT SCH (20:13)
--- NOTE | 2018-07-03 22:55 | NUR ---
RT NOTE PATIENT WAS RECEIVED ON CONTINUOUS VENT SUPPORT ON NOTED VENT SETTINGS. HHN INLINE TREATMENT WAS GIVEN, NO ADVERSE REACTION NOTED ,PRN SUCTION WAS DONE. TRACH TUBE PATENT AND SECURED. ALARMS ON AND AUDIBLE. WILL CONTINUE TO MONITOR PATIENT Addendum: 07/03/18 at 2258 by DIEGO BRADY RT Amended: Links added.
[2018-07-04] MEDS: ALBUTEROL FS 2.5 MG/3 ML VIAL.NEB NEB SCH ×4 (01:20→19:38)
[2018-07-04] MEDS: GABAPENTIN 300 MG CAPSULE GT SCH ×3 (05:16→20:11)
[2018-07-04] MEDS: INSULIN REGULAR, HUMAN 100 UNIT/ML 3 ML VIAL SQ PRN ×2 (05:16→17:10)
[2018-07-04] MEDS: DEXILANT 30 MG GT SCH (05:16)
[2018-07-04] MEDS: BLOOD SUGAR DIAGNOSTIC 1 EACH STRIP IN SCH ×2 (05:16→17:09)
[2018-07-04 07:34] VITALS: BP 121/79
[2018-07-04] MEDS: SIMETHICONE SUSP 40 MG/0.6 ML BOTTLE GT SCH ×2 (08:00→20:11)
[2018-07-04] MEDS: PROSOURCE DIETARY LIQUID 30 ML LIQUID GT SCH ×2 (09:21→17:03)
[2018-07-04] MEDS: LEVETIRACETAM SOL (5 ML) 100 MG/ML UDC GT SCH ×2 (09:21→20:11)
[2018-07-04] MEDS: ACIDOPHILUS/BULGARICUS 1 EACH TAB.CHEW GT SCH ×2 (09:21→17:03)
[2018-07-04] MEDS: TRILEPTAL GT SCH ×2 (09:21→20:11)
[2018-07-04] MEDS: MULTIVIT W/MINERALS 1 TAB TABLET GT SCH (09:21)
[2018-07-04] MEDS: FERROUS SULFATE - FOR SA ONLY 330 MG/7.5 ML UDC GT SCH ×2 (09:21→17:03)
[2018-07-04] MEDS: CALCIUM CARBONATE 500 MG TAB.CHEW GT SCH ×2 (09:21→17:03)
[2018-07-04] MEDS: HYDROGEN PEROXIDE 480 ML BOTTLE TP SCH ×2 (09:22→20:12)
[2018-07-04] MEDS: BALM TP SCH ×2 (09:22→20:11)
[2018-07-04] MEDS: Z GUARD REMEDY 4 OZ OINT TP SCH ×2 (09:22→20:12)
[2018-07-04] MEDS: LEVOFLOXACIN (250MG) 250 MG TABLET GT SCH (17:03)
--- NOTE | 2018-07-04 19:38 | NUR ---
RT NOTE: RECEIVED TRACH PT ON [facility] VENT ON NOTED SETTINGS PER MD ORDERS. TRACH IS PATENT AND SECURED. SKEIN DYER DONE. Q6 BREATHING TX GIVEN WITH NO ADVERSE REACTION NOTED. SX DONE PRN. VENT PLUGGED INTO RED OUTLET. ALARMS ON AND AUDIBLE. NEVA BAG @ BEDSIDE. NO RESP DISTRESS AT THIS TIME. WILL CONT TO MONITOR PT. Addendum: 07/05/18 at 0238 by QIANA MARY RT Amended: Links added.
[2018-07-04 20:00] VITALS: BP 113/72
[2018-07-04] MEDS: ASCORBIC ACID 500 MG TABLET GT SCH (20:11)
[2018-07-04 20:15] VITALS: BP 113/72
[2018-07-05] MEDS: ALBUTEROL FS 2.5 MG/3 ML VIAL.NEB NEB SCH ×4 (01:19→20:12)
[2018-07-05] MEDS: DEXILANT 30 MG GT SCH (05:02)
[2018-07-05] MEDS: GLUCERNA 1.2 1,000 ML BOTTLE GT PRN (05:04)
[2018-07-05] MEDS: GABAPENTIN 300 MG CAPSULE GT SCH ×3 (05:04→20:17)
[2018-07-05] MEDS: BLOOD SUGAR DIAGNOSTIC 1 EACH STRIP IN SCH ×2 (05:04→17:10)
[2018-07-05] MEDS: INSULIN REGULAR, HUMAN 100 UNIT/ML 3 ML VIAL SQ PRN ×2 (05:16→17:10)
[2018-07-05 07:34] VITALS: BP 129/72
[2018-07-05] MEDS: SIMETHICONE SUSP 40 MG/0.6 ML BOTTLE GT SCH ×2 (08:52→20:12)
[2018-07-05] MEDS: FERROUS SULFATE - FOR SA ONLY 330 MG/7.5 ML UDC GT SCH ×2 (09:00→16:33)
[2018-07-05] MEDS: LEVETIRACETAM SOL (5 ML) 100 MG/ML UDC GT SCH ×2 (09:00→20:17)
[2018-07-05] MEDS: MULTIVIT W/MINERALS 1 TAB TABLET GT SCH (09:00)
[2018-07-05] MEDS: TRILEPTAL GT SCH ×2 (09:00→20:17)
[2018-07-05] MEDS: ACIDOPHILUS/BULGARICUS 1 EACH TAB.CHEW GT SCH ×2 (09:00→16:34)
[2018-07-05] MEDS: CALCIUM CARBONATE 500 MG TAB.CHEW GT SCH ×2 (09:00→16:34)
[2018-07-05] MEDS: PROSOURCE DIETARY LIQUID 30 ML LIQUID GT SCH ×2 (09:00→16:34)
[2018-07-05] MEDS: BALM TP SCH ×2 (09:00→20:17)
[2018-07-05] MEDS: Z GUARD REMEDY 4 OZ OINT TP SCH ×2 (09:01→20:17)
[2018-07-05] MEDS: HYDROGEN PEROXIDE 480 ML BOTTLE TP SCH ×2 (09:01→20:17)
--- NOTE | 2018-07-05 09:15 | NUR ---
RT NOTE RECEIVED PT MECHANICALLY VENTILATED VIA CUFF TRACHEOSTOMY TUBE. CUFF INFLATED. TRACH TUBE MIDLINE AND SECURE. VENTILATOR SETTINGS PRESCRIBED. ALARMS SET PER PROTOCOL AND AUDIBLE. VENT PLUGGED IN TO RED OUTLET. AMBU BAG AT BED SIDE. NO DISTRESS NOTED AT MOMENT. Addendum: 07/05/18 at 0917 by MAXI BRADY RT Amended: Links added.
[2018-07-05] MEDS: LEVOFLOXACIN (250MG) 250 MG TABLET GT SCH (16:34)
[2018-07-05] MEDS: ASCORBIC ACID 500 MG TABLET GT SCH (20:17)
[2018-07-05 20:32] VITALS: BP 134/75
[2018-07-06] MEDS: ALBUTEROL FS 2.5 MG/3 ML VIAL.NEB NEB SCH ×4 (02:01→19:34)
[2018-07-06] MEDS: DEXILANT 30 MG GT SCH (05:10)
[2018-07-06] MEDS: GABAPENTIN 300 MG CAPSULE GT SCH ×3 (05:10→21:25)
[2018-07-06] MEDS: BLOOD SUGAR DIAGNOSTIC 1 EACH STRIP IN SCH ×2 (05:58→17:20)
[2018-07-06] MEDS: INSULIN REGULAR, HUMAN 100 UNIT/ML 3 ML VIAL SQ PRN (05:59)
[2018-07-06] MEDS: GLUCERNA 1.2 1,000 ML BOTTLE GT PRN (05:59)
[2018-07-06 07:29] VITALS: BP 110/92
[2018-07-06] MEDS: SIMETHICONE SUSP 40 MG/0.6 ML BOTTLE GT SCH ×2 (08:00→20:00)
[2018-07-06] MEDS: FERROUS SULFATE - FOR SA ONLY 330 MG/7.5 ML UDC GT SCH ×2 (09:06→17:20)
[2018-07-06] MEDS: TRILEPTAL GT SCH ×2 (09:06→21:25)
[2018-07-06] MEDS: LEVETIRACETAM SOL (5 ML) 100 MG/ML UDC GT SCH ×2 (09:06→21:25)
[2018-07-06] MEDS: HYDROGEN PEROXIDE 480 ML BOTTLE TP SCH ×2 (09:07→21:25)
[2018-07-06] MEDS: MULTIVIT W/MINERALS 1 TAB TABLET GT SCH (09:07)
[2018-07-06] MEDS: Z GUARD REMEDY 4 OZ OINT TP SCH ×2 (09:07→21:26)
[2018-07-06] MEDS: CALCIUM CARBONATE 500 MG TAB.CHEW GT SCH ×2 (09:07→17:20)
[2018-07-06] MEDS: BALM TP SCH ×2 (09:07→21:25)
[2018-07-06] MEDS: PROSOURCE DIETARY LIQUID 30 ML LIQUID GT SCH ×2 (09:07→17:20)
[2018-07-06] MEDS: ACIDOPHILUS/BULGARICUS 1 EACH TAB.CHEW GT SCH ×2 (09:07→17:20)
[2018-07-06 20:12] VITALS: BP 94/67
[2018-07-06] MEDS: ASCORBIC ACID 500 MG TABLET GT SCH (21:25)
[2018-07-07] MEDS: ALBUTEROL FS 2.5 MG/3 ML VIAL.NEB NEB SCH ×4 (02:18→19:58)
[2018-07-07] MEDS: GABAPENTIN 300 MG CAPSULE GT SCH ×3 (05:03→20:39)
[2018-07-07] MEDS: DEXILANT 30 MG GT SCH (05:03)
[2018-07-07] MEDS: BLOOD SUGAR DIAGNOSTIC 1 EACH STRIP IN SCH ×2 (05:28→17:21)
[2018-07-07] MEDS: INSULIN REGULAR, HUMAN 100 UNIT/ML 3 ML VIAL SQ PRN ×2 (05:30→17:21)
[2018-07-07] MEDS: SIMETHICONE SUSP 40 MG/0.6 ML BOTTLE GT SCH ×2 (08:00→20:39)
[2018-07-07] MEDS: Z GUARD REMEDY 4 OZ OINT TP SCH ×2 (09:00→20:40)
[2018-07-07] MEDS: FERROUS SULFATE - FOR SA ONLY 330 MG/7.5 ML UDC GT SCH ×2 (09:00→16:30)
[2018-07-07] MEDS: CALCIUM CARBONATE 500 MG TAB.CHEW GT SCH ×2 (09:00→16:30)
[2018-07-07] MEDS: LEVETIRACETAM SOL (5 ML) 100 MG/ML UDC GT SCH ×2 (09:00→20:39)
[2018-07-07] MEDS: MULTIVIT W/MINERALS 1 TAB TABLET GT SCH (09:00)
[2018-07-07] MEDS: TRILEPTAL GT SCH ×2 (09:00→20:39)
[2018-07-07] MEDS: HYDROGEN PEROXIDE 480 ML BOTTLE TP SCH ×2 (09:00→20:40)
[2018-07-07] MEDS: PROSOURCE DIETARY LIQUID 30 ML LIQUID GT SCH ×2 (09:00→16:30)
[2018-07-07] MEDS: BALM TP SCH ×2 (09:00→20:40)
[2018-07-07] MEDS: ACIDOPHILUS/BULGARICUS 1 EACH TAB.CHEW GT SCH ×2 (09:00→16:30)
[2018-07-07 13:27] VITALS: BP 116/73
[2018-07-07 19:46] VITALS: BP 124/77
[2018-07-07] MEDS: ASCORBIC ACID 500 MG TABLET GT SCH (20:39)
[2018-07-08] MEDS: ALBUTEROL FS 2.5 MG/3 ML VIAL.NEB NEB SCH ×4 (01:56→19:24)
[2018-07-08] MEDS: GABAPENTIN 300 MG CAPSULE GT SCH ×3 (05:14→20:22)
[2018-07-08] MEDS: DEXILANT 30 MG GT SCH (05:14)
[2018-07-08] MEDS: INSULIN REGULAR, HUMAN 100 UNIT/ML 3 ML VIAL SQ PRN (05:46)
[2018-07-08] MEDS: BLOOD SUGAR DIAGNOSTIC 1 EACH STRIP IN SCH ×2 (05:46→17:55)
[2018-07-08] MEDS: GLUCERNA 1.2 1,000 ML BOTTLE GT PRN (06:27)
[2018-07-08 08:00] VITALS: BP 109/66
[2018-07-08] MEDS: SIMETHICONE SUSP 40 MG/0.6 ML BOTTLE GT SCH ×2 (08:00→20:22)
[2018-07-08] MEDS: BALM TP SCH ×2 (09:00→20:22)
[2018-07-08] MEDS: MULTIVIT W/MINERALS 1 TAB TABLET GT SCH (09:00)
[2018-07-08] MEDS: FERROUS SULFATE - FOR SA ONLY 330 MG/7.5 ML UDC GT SCH ×2 (09:00→17:55)
[2018-07-08] MEDS: HYDROGEN PEROXIDE 480 ML BOTTLE TP SCH ×2 (09:00→20:22)
[2018-07-08] MEDS: TRILEPTAL GT SCH ×2 (09:00→20:22)
[2018-07-08] MEDS: LEVETIRACETAM SOL (5 ML) 100 MG/ML UDC GT SCH ×2 (09:00→20:22)
[2018-07-08] MEDS: Z GUARD REMEDY 4 OZ OINT TP SCH ×2 (09:00→20:23)
[2018-07-08] MEDS: CALCIUM CARBONATE 500 MG TAB.CHEW GT SCH ×2 (09:00→17:55)
[2018-07-08] MEDS: PROSOURCE DIETARY LIQUID 30 ML LIQUID GT SCH ×2 (09:00→17:55)
[2018-07-08] MEDS: ACIDOPHILUS/BULGARICUS 1 EACH TAB.CHEW GT SCH ×2 (09:00→17:55)
[2018-07-08 19:53] VITALS: BP 125/70
[2018-07-08] MEDS: ASCORBIC ACID 500 MG TABLET GT SCH (20:22)
[2018-07-09] MEDS: ALBUTEROL FS 2.5 MG/3 ML VIAL.NEB NEB SCH ×4 (01:07→19:33)
[2018-07-09] MEDS: GABAPENTIN 300 MG CAPSULE GT SCH ×3 (05:33→20:55)
[2018-07-09] MEDS: DEXILANT 30 MG GT SCH (05:34)
[2018-07-09] MEDS: GLUCERNA 1.2 1,000 ML BOTTLE GT PRN (06:24)
[2018-07-09] MEDS: MAGNESIUM HYDROXIDE 30 ML UDC GT PRN (06:25)
[2018-07-09] MEDS: INSULIN REGULAR, HUMAN 100 UNIT/ML 3 ML VIAL SQ PRN (06:30)
[2018-07-09] MEDS: BLOOD SUGAR DIAGNOSTIC 1 EACH STRIP IN SCH ×2 (06:30→17:43)
--- NOTE | 2018-07-09 07:31 | NUR ---
PT REC'D TRACHED ON [facility] VENT ON AC MODE. NO RESP DISTRESS OR SOB NOTED. TRACH PATENT AND SECURED. SX'D FOR THICK MOD AMT OF PALE YELLOW SECRETIONS. ALARMS ARE SET AND AUDIBLE. VENT PLUGGED INTO RED OUTLET. AMBU BAG BEDSIDE. WILL CONTINUE TO MONITOR. Addendum: 07/09/18 at 1556 by LADAN WICK RT Amended: Links added.
[2018-07-09 07:43] VITALS: BP 126/79
[2018-07-09] MEDS: SIMETHICONE SUSP 40 MG/0.6 ML BOTTLE GT SCH ×2 (08:00→20:55)
[2018-07-09] MEDS: FERROUS SULFATE - FOR SA ONLY 330 MG/7.5 ML UDC GT SCH ×2 (09:28→17:43)
[2018-07-09] MEDS: PROSOURCE DIETARY LIQUID 30 ML LIQUID GT SCH ×2 (09:29→17:43)
[2018-07-09] MEDS: TRILEPTAL GT SCH ×2 (09:29→20:55)
[2018-07-09] MEDS: LEVETIRACETAM SOL (5 ML) 100 MG/ML UDC GT SCH ×2 (09:29→20:55)
[2018-07-09] MEDS: CALCIUM CARBONATE 500 MG TAB.CHEW GT SCH ×2 (09:29→17:43)
[2018-07-09] MEDS: ACIDOPHILUS/BULGARICUS 1 EACH TAB.CHEW GT SCH ×2 (09:29→17:43)
[2018-07-09] MEDS: Z GUARD REMEDY 4 OZ OINT TP SCH ×2 (09:30→20:55)
[2018-07-09] MEDS: BALM TP SCH ×2 (09:30→20:55)
[2018-07-09] MEDS: HYDROGEN PEROXIDE 480 ML BOTTLE TP SCH ×2 (09:30→20:55)
[2018-07-09] MEDS: MULTIVIT W/MINERALS 1 TAB TABLET GT SCH (09:31)
[2018-07-09 19:56] VITALS: BP 104/51
[2018-07-09] MEDS: ASCORBIC ACID 500 MG TABLET GT SCH (20:55)
[2018-07-10] MEDS: ALBUTEROL FS 2.5 MG/3 ML VIAL.NEB NEB SCH ×4 (01:11→19:30)
[2018-07-10] MEDS: GABAPENTIN 300 MG CAPSULE GT SCH ×3 (05:06→21:36)
[2018-07-10] MEDS: DEXILANT 30 MG GT SCH (05:06)
[2018-07-10] MEDS: GLUCERNA 1.2 1,000 ML BOTTLE GT PRN (05:54)
[2018-07-10] MEDS: BLOOD SUGAR DIAGNOSTIC 1 EACH STRIP IN SCH ×2 (05:54→18:50)
[2018-07-10] MEDS: INSULIN REGULAR, HUMAN 100 UNIT/ML 3 ML VIAL SQ PRN (05:55)
[2018-07-10] MEDS: SIMETHICONE SUSP 40 MG/0.6 ML BOTTLE GT SCH ×2 (08:00→20:00)
[2018-07-10 08:19] VITALS: BP 129/76
[2018-07-10] MEDS: MULTIVIT W/MINERALS 1 TAB TABLET GT SCH (09:00)
[2018-07-10] MEDS: TRILEPTAL GT SCH ×2 (09:00→21:35)
[2018-07-10] MEDS: LEVETIRACETAM SOL (5 ML) 100 MG/ML UDC GT SCH ×2 (09:00→21:35)
[2018-07-10] MEDS: FERROUS SULFATE - FOR SA ONLY 330 MG/7.5 ML UDC GT SCH ×2 (09:00→17:00)
[2018-07-10] MEDS: HYDROGEN PEROXIDE 480 ML BOTTLE TP SCH ×2 (09:00→21:36)
[2018-07-10] MEDS: CALCIUM CARBONATE 500 MG TAB.CHEW GT SCH ×2 (09:00→17:00)
[2018-07-10] MEDS: PROSOURCE DIETARY LIQUID 30 ML LIQUID GT SCH ×2 (09:00→17:00)
[2018-07-10] MEDS: BALM TP SCH ×2 (09:00→21:36)
[2018-07-10] MEDS: Z GUARD REMEDY 4 OZ OINT TP SCH ×2 (09:00→21:36)
[2018-07-10] MEDS: ACIDOPHILUS/BULGARICUS 1 EACH TAB.CHEW GT SCH ×2 (09:00→17:00)
--- NOTE | 2018-07-10 10:17 | NUR ---
Notified resident's sister Beckie that patient will be moved to a different room temporarily due to scheduled room cleaning. Appreciated the call.
[2018-07-10 20:23] VITALS: BP 140/77
[2018-07-10] MEDS: ASCORBIC ACID 500 MG TABLET GT SCH (21:36)
[2018-07-11] MEDS: ALBUTEROL FS 2.5 MG/3 ML VIAL.NEB NEB SCH ×4 (01:22→19:41)
[2018-07-11] MEDS: GABAPENTIN 300 MG CAPSULE GT SCH ×3 (05:38→21:00)
[2018-07-11] MEDS: BLOOD SUGAR DIAGNOSTIC 1 EACH STRIP IN SCH ×2 (05:38→18:14)
[2018-07-11] MEDS: DEXILANT 30 MG GT SCH (05:38)
[2018-07-11] MEDS: INSULIN REGULAR, HUMAN 100 UNIT/ML 3 ML VIAL SQ PRN ×2 (05:39→18:20)
[2018-07-11 07:28] VITALS: BP 114/66
[2018-07-11] MEDS: SIMETHICONE SUSP 40 MG/0.6 ML BOTTLE GT SCH ×2 (08:00→20:00)
[2018-07-11] MEDS: BALM TP SCH ×2 (09:00→21:00)
[2018-07-11] MEDS: PROSOURCE DIETARY LIQUID 30 ML LIQUID GT SCH ×2 (09:00→16:46)
[2018-07-11] MEDS: CALCIUM CARBONATE 500 MG TAB.CHEW GT SCH ×2 (09:00→16:46)
[2018-07-11] MEDS: LEVETIRACETAM SOL (5 ML) 100 MG/ML UDC GT SCH ×2 (09:00→21:00)
[2018-07-11] MEDS: FERROUS SULFATE - FOR SA ONLY 330 MG/7.5 ML UDC GT SCH ×2 (09:00→16:46)
[2018-07-11] MEDS: Z GUARD REMEDY 4 OZ OINT TP SCH ×2 (09:00→21:00)
[2018-07-11] MEDS: MULTIVIT W/MINERALS 1 TAB TABLET GT SCH (09:00)
[2018-07-11] MEDS: ACIDOPHILUS/BULGARICUS 1 EACH TAB.CHEW GT SCH ×2 (09:00→16:46)
[2018-07-11] MEDS: HYDROGEN PEROXIDE 480 ML BOTTLE TP SCH ×2 (09:00→21:00)
[2018-07-11] MEDS: TRILEPTAL GT SCH ×2 (09:00→21:00)
[2018-07-11] MEDS: GLUCERNA 1.2 1,000 ML BOTTLE GT PRN (12:02)
[2018-07-11 20:05] VITALS: BP 119/74
[2018-07-11] MEDS: ASCORBIC ACID 500 MG TABLET GT SCH (21:00)
[2018-07-12] MEDS: ALBUTEROL FS 2.5 MG/3 ML VIAL.NEB NEB SCH ×4 (00:40→19:55)
[2018-07-12] MEDS: DEXILANT 30 MG GT SCH (05:56)
[2018-07-12] MEDS: BLOOD SUGAR DIAGNOSTIC 1 EACH STRIP IN SCH ×2 (05:56→18:44)
[2018-07-12] MEDS: GABAPENTIN 300 MG CAPSULE GT SCH ×3 (05:56→21:11)
[2018-07-12 07:57] VITALS: BP 126/88
[2018-07-12] MEDS: SIMETHICONE SUSP 40 MG/0.6 ML BOTTLE GT SCH ×2 (08:00→20:00)
--- NOTE | 2018-07-12 08:12 | NUR ---
RT NOTE PT FOUND ON [facility] VENT ON THE FOLLOWING NOTED SETTINGS. NO RESP DISTRESS OR SOB NOTED. BREATHING TX GIVEN, NO ADVERSE REACTIONS NOTED. PT SUCTIONED MOD THIN YELLOW/WHITE SECRETIONS. VENT IS PLUGGED INTO RED OUTLET. ALARMS ARE ON AND AUDIBLE. AMBU BAG AND SPARE TRACH ARE AT BEDSIDE. WILL CONT TO MONITOR. Addendum: 07/12/18 at 0812 by MARLA ALCOCER RT Amended: Links added.
[2018-07-12] MEDS: TRILEPTAL GT SCH ×2 (09:00→21:11)
[2018-07-12] MEDS: ACIDOPHILUS/BULGARICUS 1 EACH TAB.CHEW GT SCH ×2 (09:00→16:23)
[2018-07-12] MEDS: PROSOURCE DIETARY LIQUID 30 ML LIQUID GT SCH ×2 (09:00→16:23)
[2018-07-12] MEDS: FERROUS SULFATE - FOR SA ONLY 330 MG/7.5 ML UDC GT SCH ×2 (09:00→16:23)
[2018-07-12] MEDS: HYDROGEN PEROXIDE 480 ML BOTTLE TP SCH ×2 (09:00→21:12)
[2018-07-12] MEDS: LEVETIRACETAM SOL (5 ML) 100 MG/ML UDC GT SCH ×2 (09:00→21:11)
[2018-07-12] MEDS: MULTIVIT W/MINERALS 1 TAB TABLET GT SCH (09:00)
[2018-07-12] MEDS: Z GUARD REMEDY 4 OZ OINT TP SCH ×2 (09:00→21:12)
[2018-07-12] MEDS: BALM TP SCH ×2 (09:00→21:12)
[2018-07-12] MEDS: CALCIUM CARBONATE 500 MG TAB.CHEW GT SCH ×2 (09:00→16:23)
[2018-07-12] MEDS: INSULIN REGULAR, HUMAN 100 UNIT/ML 3 ML VIAL SQ PRN (18:45)
[2018-07-12 20:20] VITALS: BP 114/69
[2018-07-12] MEDS: ASCORBIC ACID 500 MG TABLET GT SCH (21:11)
[2018-07-13] MEDS: ALBUTEROL FS 2.5 MG/3 ML VIAL.NEB NEB SCH ×4 (01:28→20:23)
[2018-07-13] MEDS: DEXILANT 30 MG GT SCH (05:56)
[2018-07-13] MEDS: GABAPENTIN 300 MG CAPSULE GT SCH ×3 (05:56→20:52)
[2018-07-13] MEDS: BLOOD SUGAR DIAGNOSTIC 1 EACH STRIP IN SCH ×2 (05:56→18:00)
[2018-07-13] MEDS: INSULIN REGULAR, HUMAN 100 UNIT/ML 3 ML VIAL SQ PRN ×2 (05:57→19:00)
[2018-07-13] MEDS: SIMETHICONE SUSP 40 MG/0.6 ML BOTTLE GT SCH ×2 (08:00→20:52)
[2018-07-13] MEDS: Z GUARD REMEDY 4 OZ OINT TP SCH ×2 (09:00→20:52)
[2018-07-13] MEDS: PROSOURCE DIETARY LIQUID 30 ML LIQUID GT SCH ×2 (09:00→16:58)
[2018-07-13] MEDS: TRILEPTAL GT SCH ×2 (09:00→20:52)
[2018-07-13] MEDS: BALM TP SCH ×2 (09:00→20:52)
[2018-07-13] MEDS: MULTIVIT W/MINERALS 1 TAB TABLET GT SCH (09:00)
[2018-07-13] MEDS: LEVETIRACETAM SOL (5 ML) 100 MG/ML UDC GT SCH ×2 (09:00→20:52)
[2018-07-13] MEDS: CALCIUM CARBONATE 500 MG TAB.CHEW GT SCH ×2 (09:00→16:58)
[2018-07-13] MEDS: ACIDOPHILUS/BULGARICUS 1 EACH TAB.CHEW GT SCH ×2 (09:00→16:58)
[2018-07-13] MEDS: HYDROGEN PEROXIDE 480 ML BOTTLE TP SCH ×2 (09:00→20:52)
[2018-07-13] MEDS: FERROUS SULFATE - FOR SA ONLY 330 MG/7.5 ML UDC GT SCH ×2 (09:00→16:58)
--- NOTE | 2018-07-13 13:55 | NUR ---
Seen by Dr Craig. He trimmed pt's toenails.
--- NOTE | 2018-07-13 15:34 | NUR ---
Seen by Dr Craig. He trimmed pt's toenails.
[2018-07-13] MEDS: GLUCERNA 1.2 1,000 ML BOTTLE GT PRN (17:09)
[2018-07-13 19:48] VITALS: BP 101/63
[2018-07-13] MEDS: ASCORBIC ACID 500 MG TABLET GT SCH (20:52)
--- NOTE | 2018-07-13 21:20 | NUR ---
PT RCVD TRACH'D ON MECHANICAL VENT WITH CHARTED SETTINGS. HHN TX GIVEN AND NO ADVERSE REACTION NOTED. SX DONE. PT TRACH PATENT AND SECURE. CUFF CHECKED VIA MICROMATIC HONE OPERATOR. ALARMS ARE ON AND AUDIBLE. VENT PLUGGED INTO RED OUTLET. AMBU BAG AT BEDSIDE. WILL CONTINUE TO MONITOR. Addendum: 07/13/18 at 2121 by MICH AVILA RT Amended: Links added.
[2018-07-14] MEDS: ALBUTEROL FS 2.5 MG/3 ML VIAL.NEB NEB SCH ×4 (01:10→19:56)
[2018-07-14] MEDS: GABAPENTIN 300 MG CAPSULE GT SCH ×3 (05:00→21:22)
[2018-07-14] MEDS: DEXILANT 30 MG GT SCH (06:12)
[2018-07-14] MEDS: INSULIN REGULAR, HUMAN 100 UNIT/ML 3 ML VIAL SQ PRN ×2 (06:21→17:22)
[2018-07-14] MEDS: BLOOD SUGAR DIAGNOSTIC 1 EACH STRIP IN SCH ×2 (06:21→17:01)
[2018-07-14 07:37] VITALS: BP 131/71
[2018-07-14] MEDS: SIMETHICONE SUSP 40 MG/0.6 ML BOTTLE GT SCH ×2 (08:00→20:00)
[2018-07-14] MEDS: FERROUS SULFATE - FOR SA ONLY 330 MG/7.5 ML UDC GT SCH ×2 (09:05→16:57)
[2018-07-14] MEDS: ACIDOPHILUS/BULGARICUS 1 EACH TAB.CHEW GT SCH ×2 (09:07→16:57)
[2018-07-14] MEDS: PROSOURCE DIETARY LIQUID 30 ML LIQUID GT SCH ×2 (09:07→16:57)
[2018-07-14] MEDS: LEVETIRACETAM SOL (5 ML) 100 MG/ML UDC GT SCH ×2 (09:07→21:22)
[2018-07-14] MEDS: CALCIUM CARBONATE 500 MG TAB.CHEW GT SCH ×2 (09:07→16:57)
[2018-07-14] MEDS: TRILEPTAL GT SCH ×2 (09:07→21:22)
[2018-07-14] MEDS: MULTIVIT W/MINERALS 1 TAB TABLET GT SCH (09:07)
[2018-07-14] MEDS: Z GUARD REMEDY 4 OZ OINT TP SCH ×2 (09:08→21:22)
[2018-07-14] MEDS: HYDROGEN PEROXIDE 480 ML BOTTLE TP SCH ×2 (09:08→21:22)
[2018-07-14] MEDS: BALM TP SCH ×2 (09:08→21:22)
[2018-07-14] MEDS: GLUCERNA 1.2 1,000 ML BOTTLE GT PRN (16:57)
--- NOTE | 2018-07-14 19:56 | NUR ---
RECEIVED TRACH BO 8 XLT PT ON [facility] VENT WITH NOTED SETTINGS. TRACH IS PATENT AND SECURED. PORTER USED CAR LOT DONE. BREATHING TX GIVEN WITH NO ADVERSE REACTION NOTED. SX MODERATE AMOUNT OF PALE YELLOW SECRETIONS. VENT PLUGGED INTO RED OUTLET. ALARMS ON AND AUDIBLE. AMBU BAG @ BEDSIDE. NO RESP DISTRESS AT THIS TIME. WILL CONT TO MONITOR PT.
[2018-07-14 20:38] VITALS: BP 118/69
[2018-07-14] MEDS: ASCORBIC ACID 500 MG TABLET GT SCH (21:22)
[2018-07-15] MEDS: ALBUTEROL FS 2.5 MG/3 ML VIAL.NEB NEB SCH ×4 (00:56→19:30)
[2018-07-15] MEDS: GABAPENTIN 300 MG CAPSULE GT SCH ×3 (05:00→21:18)
[2018-07-15] MEDS: BLOOD SUGAR DIAGNOSTIC 1 EACH STRIP IN SCH ×2 (06:00→17:43)
[2018-07-15] MEDS: DEXILANT 30 MG GT SCH (06:00)
[2018-07-15] MEDS: INSULIN REGULAR, HUMAN 100 UNIT/ML 3 ML VIAL SQ PRN (07:03)
[2018-07-15 07:38] VITALS: BP 119/91
[2018-07-15] MEDS: SIMETHICONE SUSP 40 MG/0.6 ML BOTTLE GT SCH ×2 (08:00→20:00)
[2018-07-15] MEDS: HYDROGEN PEROXIDE 480 ML BOTTLE TP SCH ×2 (09:00→21:18)
[2018-07-15] MEDS: TRILEPTAL GT SCH ×2 (09:00→21:18)
[2018-07-15] MEDS: CALCIUM CARBONATE 500 MG TAB.CHEW GT SCH ×2 (09:00→17:43)
[2018-07-15] MEDS: MULTIVIT W/MINERALS 1 TAB TABLET GT SCH (09:00)
[2018-07-15] MEDS: LEVETIRACETAM SOL (5 ML) 100 MG/ML UDC GT SCH ×2 (09:00→21:18)
[2018-07-15] MEDS: Z GUARD REMEDY 4 OZ OINT TP SCH ×2 (09:00→21:18)
[2018-07-15] MEDS: PROSOURCE DIETARY LIQUID 30 ML LIQUID GT SCH ×2 (09:00→17:43)
[2018-07-15] MEDS: BALM TP SCH ×2 (09:00→21:18)
[2018-07-15] MEDS: ACIDOPHILUS/BULGARICUS 1 EACH TAB.CHEW GT SCH ×2 (09:00→17:43)
[2018-07-15] MEDS: FERROUS SULFATE - FOR SA ONLY 330 MG/7.5 ML UDC GT SCH ×2 (09:00→17:43)
--- NOTE | 2018-07-15 15:30 | NUR ---
Seen and examined by Anna Vargas NP NNO given at this time.
--- NOTE | 2018-07-15 15:36 | NUR ---
PT RCVD TRACH'D ON MECHANICAL VENT WITH CHARTED SETTINGS. HHN TX GIVEN AND NO ADVERSE REACTION NOTED. SX DONE. PT TRACH PATENT AND SECURE. CUFF CHECKED VIA FOUNDRY LABORER COREROOM. ALARMS ARE ON . VENT PLUGGED INTO RED OUTLET. AMBU BAG AT BEDSIDE. WILL CONTINUE TO MONITOR. Addendum: 07/15/18 at 1536 by CADY RAUSCH RT Amended: Links added.
[2018-07-15] MEDS: GLUCERNA 1.2 1,000 ML BOTTLE GT PRN (19:30)
[2018-07-15 19:31] VITALS: BP 115/68
--- NOTE | 2018-07-15 20:35 | NUR ---
RECEIVED TRACH BO 8 XLT PT ON [facility] VENT WITH NOTED SETTINGS. TRACH IS PATENT AND SECURED. SPEECH LANGUAGE PATHOLOGY ASSISTANT DONE. BREATHING TX GIVEN WITH NO ADVERSE REACTION NOTED. SX MODERATE AMOUNT OF YELLOW THICK SECRETIONS. VENT PLUGGED INTO RED OUTLET. ALARMS ON AND AUDIBLE. AMBU BAG @ BEDSIDE. NO RESP DISTRESS AT THIS TIME. WILL CONT TO MONITOR PT.
[2018-07-15] MEDS: ASCORBIC ACID 500 MG TABLET GT SCH (21:18)
[2018-07-16] MEDS: ALBUTEROL FS 2.5 MG/3 ML VIAL.NEB NEB SCH ×4 (01:53→19:39)
[2018-07-16] MEDS: GABAPENTIN 300 MG CAPSULE GT SCH ×3 (05:30→21:25)
[2018-07-16] MEDS: DEXILANT 30 MG GT SCH (05:30)
[2018-07-16] MEDS: BLOOD SUGAR DIAGNOSTIC 1 EACH STRIP IN SCH ×2 (05:30→17:35)
[2018-07-16] MEDS: INSULIN REGULAR, HUMAN 100 UNIT/ML 3 ML VIAL SQ PRN (05:31)
[2018-07-16 07:46] VITALS: BP 98/61
[2018-07-16] MEDS: SIMETHICONE SUSP 40 MG/0.6 ML BOTTLE GT SCH ×2 (08:00→20:00)
--- NOTE | 2018-07-16 08:29 | NUR ---
RT NOTE RECEIVED TRACH SHILEY 8 XLT PT ON [facility] VENT WITH NOTED SETTINGS. TRACH IS PATENT AND SECURED. SHIFT SUPERVISOR RN DONE. BREATHING TX GIVEN WITH NO ADVERSE REACTION NOTED. SX MODERATE AMOUNT OF YELLOW THICK SECRETIONS. VENT PLUGGED INTO RED OUTLET. ALARMS ON AND AUDIBLE. AMBU BAG @ BEDSIDE. NO RESP DISTRESS AT THIS TIME. WILL CONT TO MONITOR PT.
[2018-07-16] MEDS: CALCIUM CARBONATE 500 MG TAB.CHEW GT SCH ×2 (09:00→17:35)
[2018-07-16] MEDS: LEVETIRACETAM SOL (5 ML) 100 MG/ML UDC GT SCH ×2 (09:00→21:25)
[2018-07-16] MEDS: HYDROGEN PEROXIDE 480 ML BOTTLE TP SCH ×2 (09:00→21:25)
[2018-07-16] MEDS: ACIDOPHILUS/BULGARICUS 1 EACH TAB.CHEW GT SCH ×2 (09:00→17:35)
[2018-07-16] MEDS: BALM TP SCH ×2 (09:00→21:25)
[2018-07-16] MEDS: PROSOURCE DIETARY LIQUID 30 ML LIQUID GT SCH ×2 (09:00→17:35)
[2018-07-16] MEDS: Z GUARD REMEDY 4 OZ OINT TP SCH ×2 (09:00→21:25)
[2018-07-16] MEDS: MULTIVIT W/MINERALS 1 TAB TABLET GT SCH (09:00)
[2018-07-16] MEDS: TRILEPTAL GT SCH ×2 (09:00→21:25)
[2018-07-16] MEDS: FERROUS SULFATE - FOR SA ONLY 330 MG/7.5 ML UDC GT SCH ×2 (09:00→17:35)
--- NOTE | 2018-07-16 16:27 | NUR ---
Seen and examined by Dr. Montaño, NNO given.
[2018-07-16 19:39] VITALS: BP 130/68
[2018-07-16] MEDS: GLUCERNA 1.2 1,000 ML BOTTLE GT PRN (21:25)
[2018-07-16] MEDS: ASCORBIC ACID 500 MG TABLET GT SCH (21:25)
--- NOTE | 2018-07-16 21:40 | NUR ---
RT NOTE PATIENT RECEIVED TRACHED ON MECHANICAL VENTILATION. CUFF CHECKED VIA DERRICK BOAT OPERATOR. SP02 > 92%. ALARMS ON AND AUDIBLE. VENT PLUGGED INTO RED OUTLET. TX GIVEN, NO ADVERSE REACTIONS NOTED. SX DONE, MODERATE THICK WHITE SECRETIONS NOTED. PATIENT STABLE. WILL MONITOR. Addendum: 07/16/18 at 2140 by BIREN NEAL RT Amended: Links added.
[2018-07-17] MEDS: ALBUTEROL FS 2.5 MG/3 ML VIAL.NEB NEB SCH ×4 (01:38→19:36)
[2018-07-17] MEDS: DEXILANT 30 MG GT SCH (05:26)
[2018-07-17] MEDS: GABAPENTIN 300 MG CAPSULE GT SCH ×3 (05:26→21:07)
[2018-07-17] MEDS: INSULIN REGULAR, HUMAN 100 UNIT/ML 3 ML VIAL SQ PRN (05:26)
[2018-07-17] MEDS: BLOOD SUGAR DIAGNOSTIC 1 EACH STRIP IN SCH ×2 (05:26→18:54)
[2018-07-17] MEDS: BISACODYL SUPP (10 MG) 10 MG/SUPP.RECT SUPP.RECT RC PRN (06:45)
[2018-07-17 07:32] VITALS: BP 126/78
[2018-07-17] MEDS: SIMETHICONE SUSP 40 MG/0.6 ML BOTTLE GT SCH ×2 (08:11→20:00)
[2018-07-17] MEDS: HYDROGEN PEROXIDE 480 ML BOTTLE TP SCH ×2 (08:46→21:07)
[2018-07-17] MEDS: BALM TP SCH ×2 (08:46→21:07)
[2018-07-17] MEDS: Z GUARD REMEDY 4 OZ OINT TP SCH ×2 (08:46→21:07)
[2018-07-17] MEDS: TRILEPTAL GT SCH ×2 (08:46→21:07)
[2018-07-17] MEDS: PROSOURCE DIETARY LIQUID 30 ML LIQUID GT SCH ×2 (08:46→17:56)
[2018-07-17] MEDS: MULTIVIT W/MINERALS 1 TAB TABLET GT SCH (08:46)
[2018-07-17] MEDS: CALCIUM CARBONATE 500 MG TAB.CHEW GT SCH ×2 (08:46→17:56)
[2018-07-17] MEDS: FERROUS SULFATE - FOR SA ONLY 330 MG/7.5 ML UDC GT SCH ×2 (08:46→17:55)
[2018-07-17] MEDS: ACIDOPHILUS/BULGARICUS 1 EACH TAB.CHEW GT SCH ×2 (08:46→17:56)
[2018-07-17] MEDS: LEVETIRACETAM SOL (5 ML) 100 MG/ML UDC GT SCH ×2 (08:46→21:07)
[2018-07-17] MEDS: GLUCERNA 1.2 1,000 ML BOTTLE GT PRN (18:54)
[2018-07-17 19:43] VITALS: BP 100/65
[2018-07-17] MEDS: ASCORBIC ACID 500 MG TABLET GT SCH (21:07)
[2018-07-17 21:08] VITALS: BP 107/63
--- NOTE | 2018-07-17 23:49 | NUR ---
RT NOTE PATIENT WAS RECEIVED ON CONTINUOUS VENT SUPPORT ON NOTED VENT SETTINGS. RETAIL PERFORMANCE SPECIALIST DONE. AMBU BAG @ BEDSIDE. Q6 BREATHING TX GIVEN WITH NO ADVERSE REACTION NOTED. SUCTION DONE PRN.TRACH TUBE PATENT AND SECURED. ALARMS ON AND AUDIBLE. NO RESPIRATORY DISTRESS NOTED AT THIS TIME. WILL CONTINUE TO MONITOR PATIENT. Addendum: 07/17/18 at 2350 by DIEGO BRADY RT Amended: Links added.
--- NOTE | 2018-07-18 00:47 | NUR ---
PATIENT WAS RECEIVED ON CONTINUOUS VENT SUPPORT ON NOTED VENT SETTINGS. HHN INLINE TREATMENT WAS GIVEN, NO ADVERSE REACTION NOTED ,PRN SUCTION WAS DONE. TRACH TUBE PATENT AND SECURED. ALARMS ON AND AUDIBLE. WILL CONTINUE TO MONITOR PATIENT Addendum: 07/18/18 at 0048 by DIEGO BRADY RT Amended: Links added.
[2018-07-18] MEDS: ALBUTEROL FS 2.5 MG/3 ML VIAL.NEB NEB SCH ×4 (01:14→18:57)
[2018-07-18] MEDS: DEXILANT 30 MG GT SCH (05:06)
[2018-07-18] MEDS: INSULIN REGULAR, HUMAN 100 UNIT/ML 3 ML VIAL SQ PRN ×2 (05:06→19:36)
[2018-07-18] MEDS: GABAPENTIN 300 MG CAPSULE GT SCH ×3 (05:06→21:00)
[2018-07-18] MEDS: BLOOD SUGAR DIAGNOSTIC 1 EACH STRIP IN SCH ×2 (05:06→18:00)
[2018-07-18] MEDS: SIMETHICONE SUSP 40 MG/0.6 ML BOTTLE GT SCH ×2 (08:00→20:00)
[2018-07-18 08:07] VITALS: BP 131/66
[2018-07-18] MEDS: TRILEPTAL GT SCH ×2 (09:00→21:00)
[2018-07-18] MEDS: FERROUS SULFATE - FOR SA ONLY 330 MG/7.5 ML UDC GT SCH ×2 (09:00→17:00)
[2018-07-18] MEDS: ACIDOPHILUS/BULGARICUS 1 EACH TAB.CHEW GT SCH ×2 (09:00→17:00)
[2018-07-18] MEDS: LEVETIRACETAM SOL (5 ML) 100 MG/ML UDC GT SCH ×2 (09:00→21:00)
[2018-07-18] MEDS: HYDROGEN PEROXIDE 480 ML BOTTLE TP SCH ×2 (09:00→21:00)
[2018-07-18] MEDS: PROSOURCE DIETARY LIQUID 30 ML LIQUID GT SCH ×2 (09:00→17:00)
[2018-07-18] MEDS: MULTIVIT W/MINERALS 1 TAB TABLET GT SCH (09:00)
[2018-07-18] MEDS: CALCIUM CARBONATE 500 MG TAB.CHEW GT SCH ×2 (09:00→17:00)
[2018-07-18] MEDS: BALM TP SCH ×2 (09:00→21:00)
[2018-07-18] MEDS: Z GUARD REMEDY 4 OZ OINT TP SCH ×2 (09:00→21:00)
[2018-07-18] MEDS: GLUCERNA 1.2 1,000 ML BOTTLE GT PRN (14:55)
[2018-07-18 19:50] VITALS: BP 123/90
[2018-07-18] MEDS: ASCORBIC ACID 500 MG TABLET GT SCH (21:00)
[2018-07-19] MEDS: ALBUTEROL FS 2.5 MG/3 ML VIAL.NEB NEB SCH ×4 (00:46→19:58)
[2018-07-19] MEDS: GABAPENTIN 300 MG CAPSULE GT SCH ×3 (06:00→20:21)
[2018-07-19] MEDS: BLOOD SUGAR DIAGNOSTIC 1 EACH STRIP IN SCH ×2 (06:00→18:50)
[2018-07-19] MEDS: DEXILANT 30 MG GT SCH (06:08)
--- NOTE | 2018-07-19 07:21 | NUR ---
RT Pt received trached on the vent with noted settings. Pt is awake and alert. Vent alarms are set and audible with BVM by bedside. CLERICAL SECRETARY cuff pressure noted. Vent is plugged into red outlet. HHN tx given with no adverse reactions. Sx'd moderate thick pale yellow secretions. No respiratory distress noted at this time, will continue to monitor. Addendum: 07/19/18 at 0839 by MIMI WALKER RT Amended: Links added.
[2018-07-19] MEDS: SIMETHICONE SUSP 40 MG/0.6 ML BOTTLE GT SCH ×2 (08:00→20:21)
[2018-07-19] MEDS: LEVETIRACETAM SOL (5 ML) 100 MG/ML UDC GT SCH ×2 (09:00→20:21)
[2018-07-19] MEDS: BALM TP SCH ×2 (09:00→20:21)
[2018-07-19] MEDS: CALCIUM CARBONATE 500 MG TAB.CHEW GT SCH ×2 (09:00→17:17)
[2018-07-19] MEDS: FERROUS SULFATE - FOR SA ONLY 330 MG/7.5 ML UDC GT SCH ×2 (09:00→17:17)
[2018-07-19] MEDS: PROSOURCE DIETARY LIQUID 30 ML LIQUID GT SCH ×2 (09:00→17:17)
[2018-07-19] MEDS: ACIDOPHILUS/BULGARICUS 1 EACH TAB.CHEW GT SCH ×2 (09:00→17:17)
[2018-07-19] MEDS: Z GUARD REMEDY 4 OZ OINT TP SCH ×2 (09:00→20:21)
[2018-07-19] MEDS: HYDROGEN PEROXIDE 480 ML BOTTLE TP SCH ×2 (09:00→20:21)
[2018-07-19] MEDS: MULTIVIT W/MINERALS 1 TAB TABLET GT SCH (09:00)
[2018-07-19] MEDS: TRILEPTAL GT SCH ×2 (09:00→20:21)
[2018-07-19 12:18] VITALS: BP 110/64
[2018-07-19 12:30] VITALS: BP 110/64
--- NOTE | 2018-07-19 14:37 | NUR ---
Pt. was seeing by the podiatry Dr. Naik on 07/16 and an appointment was made for 08/06. A dentist appt with Dr. Clemente was made for 08/16.
--- NOTE | 2018-07-19 14:53 | NUR ---
Patient was seen by podiatry Dr. Araya on 07/13. Nails were trimmed. requested to see patient in 2 to 3 months.
[2018-07-19] MEDS: INSULIN REGULAR, HUMAN 100 UNIT/ML 3 ML VIAL SQ PRN (18:50)
[2018-07-19 19:44] VITALS: BP 115/73
[2018-07-19] MEDS: ASCORBIC ACID 500 MG TABLET GT SCH (20:21)
[2018-07-20] MEDS: ALBUTEROL FS 2.5 MG/3 ML VIAL.NEB NEB SCH ×4 (01:14→19:28)
[2018-07-20] MEDS: GABAPENTIN 300 MG CAPSULE GT SCH ×3 (04:56→20:36)
[2018-07-20] MEDS: DEXILANT 30 MG GT SCH (05:01)
[2018-07-20] MEDS: BLOOD SUGAR DIAGNOSTIC 1 EACH STRIP IN SCH ×2 (05:01→17:56)
--- NOTE | 2018-07-20 07:31 | NUR ---
Received female fariha pt on a mechanical vent. Pt fariha is secure. Vent is plugged into a red outlet, alarms are set and audible, and BMV is at bedside. Addendum: 07/20/18 at 0731 by MARKIE PINO RT Amended: Links added.
[2018-07-20] MEDS: SIMETHICONE SUSP 40 MG/0.6 ML BOTTLE GT SCH ×2 (08:00→20:36)
[2018-07-20] MEDS: LEVETIRACETAM SOL (5 ML) 100 MG/ML UDC GT SCH ×2 (09:00→20:36)
[2018-07-20] MEDS: HYDROGEN PEROXIDE 480 ML BOTTLE TP SCH ×2 (09:00→20:36)
[2018-07-20] MEDS: PROSOURCE DIETARY LIQUID 30 ML LIQUID GT SCH ×2 (09:00→17:06)
[2018-07-20] MEDS: TRILEPTAL GT SCH ×2 (09:00→20:36)
[2018-07-20] MEDS: CALCIUM CARBONATE 500 MG TAB.CHEW GT SCH ×2 (09:00→17:06)
[2018-07-20] MEDS: ACIDOPHILUS/BULGARICUS 1 EACH TAB.CHEW GT SCH ×2 (09:00→17:06)
[2018-07-20] MEDS: Z GUARD REMEDY 4 OZ OINT TP SCH ×2 (09:00→20:36)
[2018-07-20] MEDS: MULTIVIT W/MINERALS 1 TAB TABLET GT SCH (09:00)
[2018-07-20] MEDS: FERROUS SULFATE - FOR SA ONLY 330 MG/7.5 ML UDC GT SCH ×2 (09:00→17:06)
[2018-07-20] MEDS: BALM TP SCH ×2 (09:00→20:36)
[2018-07-20 12:14] VITALS: BP 114/56
[2018-07-20] MEDS: INSULIN REGULAR, HUMAN 100 UNIT/ML 3 ML VIAL SQ PRN (17:56)
[2018-07-20] MEDS: ASCORBIC ACID 500 MG TABLET GT SCH (20:36)
[2018-07-20] MEDS: GLUCERNA 1.2 1,000 ML BOTTLE GT PRN (20:37)
[2018-07-21] MEDS: ALBUTEROL FS 2.5 MG/3 ML VIAL.NEB NEB SCH ×4 (01:45→19:40)
[2018-07-21 05:07] VITALS: BP 128/66
[2018-07-21] MEDS: DEXILANT 30 MG GT SCH (05:27)
[2018-07-21] MEDS: GABAPENTIN 300 MG CAPSULE GT SCH ×3 (05:27→20:31)
[2018-07-21] MEDS: INSULIN REGULAR, HUMAN 100 UNIT/ML 3 ML VIAL SQ PRN ×2 (06:05→17:51)
[2018-07-21] MEDS: BLOOD SUGAR DIAGNOSTIC 1 EACH STRIP IN SCH ×2 (06:05→17:51)
[2018-07-21 07:36] VITALS: BP 124/52
[2018-07-21] MEDS: SIMETHICONE SUSP 40 MG/0.6 ML BOTTLE GT SCH ×2 (08:00→20:25)
[2018-07-21] MEDS: Z GUARD REMEDY 4 OZ OINT TP SCH ×2 (09:00→20:28)
[2018-07-21] MEDS: HYDROGEN PEROXIDE 480 ML BOTTLE TP SCH ×2 (09:00→20:28)
[2018-07-21] MEDS: ACIDOPHILUS/BULGARICUS 1 EACH TAB.CHEW GT SCH ×2 (09:51→16:01)
[2018-07-21] MEDS: MULTIVIT W/MINERALS 1 TAB TABLET GT SCH (09:51)
[2018-07-21] MEDS: PROSOURCE DIETARY LIQUID 30 ML LIQUID GT SCH ×2 (09:51→16:01)
[2018-07-21] MEDS: BALM TP SCH ×2 (09:51→20:28)
[2018-07-21] MEDS: LEVETIRACETAM SOL (5 ML) 100 MG/ML UDC GT SCH ×2 (09:51→20:27)
[2018-07-21] MEDS: CALCIUM CARBONATE 500 MG TAB.CHEW GT SCH ×2 (09:51→16:01)
[2018-07-21] MEDS: FERROUS SULFATE - FOR SA ONLY 330 MG/7.5 ML UDC GT SCH ×2 (09:51→16:01)
[2018-07-21] MEDS: TRILEPTAL GT SCH ×2 (09:51→20:27)
--- NOTE | 2018-07-21 14:00 | NUR ---
Seen and examined by Maria Victoria Vargas NP NNO given.
[2018-07-21] MEDS: GLUCERNA 1.2 1,000 ML BOTTLE GT PRN (16:01)
[2018-07-21 19:36] VITALS: BP 127/71
[2018-07-21] MEDS: ASCORBIC ACID 500 MG TABLET GT SCH (20:28)
[2018-07-22] MEDS: ALBUTEROL FS 2.5 MG/3 ML VIAL.NEB NEB SCH ×4 (02:18→19:19)
[2018-07-22] MEDS: GABAPENTIN 300 MG CAPSULE GT SCH ×3 (04:56→20:44)
[2018-07-22] MEDS: DEXILANT 30 MG GT SCH (05:01)
[2018-07-22] MEDS: BLOOD SUGAR DIAGNOSTIC 1 EACH STRIP IN SCH ×2 (05:53→17:36)
--- NOTE | 2018-07-22 05:54 | NUR ---
RN NOTES BS 118 NO COVERAGE NEEDED
[2018-07-22 07:41] VITALS: BP 131/80
[2018-07-22] MEDS: SIMETHICONE SUSP 40 MG/0.6 ML BOTTLE GT SCH ×2 (08:00→20:44)
[2018-07-22] MEDS: LEVETIRACETAM SOL (5 ML) 100 MG/ML UDC GT SCH ×2 (09:11→20:44)
[2018-07-22] MEDS: FERROUS SULFATE - FOR SA ONLY 330 MG/7.5 ML UDC GT SCH ×2 (09:11→16:59)
[2018-07-22] MEDS: TRILEPTAL GT SCH ×2 (09:11→20:44)
[2018-07-22] MEDS: PROSOURCE DIETARY LIQUID 30 ML LIQUID GT SCH ×2 (09:11→17:00)
[2018-07-22] MEDS: ACIDOPHILUS/BULGARICUS 1 EACH TAB.CHEW GT SCH ×2 (09:11→16:59)
[2018-07-22] MEDS: BALM TP SCH ×2 (09:12→20:44)
[2018-07-22] MEDS: CALCIUM CARBONATE 500 MG TAB.CHEW GT SCH ×2 (09:12→17:00)
[2018-07-22] MEDS: HYDROGEN PEROXIDE 480 ML BOTTLE TP SCH ×2 (09:12→20:44)
[2018-07-22] MEDS: MULTIVIT W/MINERALS 1 TAB TABLET GT SCH (09:12)
[2018-07-22] MEDS: Z GUARD REMEDY 4 OZ OINT TP SCH ×4 (09:12→20:44)
--- NOTE | 2018-07-22 14:20 | NUR ---
RT NOTE: PATIENT RECEIVED TRACHED ON MECHANICAL VENT. ALARMS VERIFIED AND AUDIBLE. SUCTIONED AND LAVAGED MODERATE AMOUNT OF THICK ZHANG SECRETIONS. AMBU BAG AND NEW TRACH AT [facility].
[2018-07-22] MEDS: INSULIN REGULAR, HUMAN 100 UNIT/ML 3 ML VIAL SQ PRN (17:37)
[2018-07-22] MEDS: GLUCERNA 1.2 1,000 ML BOTTLE GT PRN (18:54)
[2018-07-22 19:29] VITALS: BP 115/59
[2018-07-22] MEDS: ASCORBIC ACID 500 MG TABLET GT SCH (20:44)
--- NOTE | 2018-07-22 21:38 | NUR ---
RT NOTE PATIENT WAS RECEIVED ON CONTINUOUS VENT SUPPORT ON NOTED VENT SETTINGS. MANAGER GOVERNMENT DONE. AMBU BAG @ BEDSIDE. Q6 BREATHING TX GIVEN WITH NO ADVERSE REACTION NOTED. SUCTION DONE PRN.TRACH TUBE PATENT AND SECURED. ALARMS ON AND AUDIBLE. NO RESPIRATORY DISTRESS NOTED AT THIS TIME. WILL CONTINUE TO MONITOR PATIENT. Addendum: 07/22/18 at 2139 by DIEGO BRADY RT Amended: Links added.
[2018-07-23] MEDS: ALBUTEROL FS 2.5 MG/3 ML VIAL.NEB NEB SCH ×4 (01:17→19:24)
[2018-07-23] MEDS: DEXILANT 30 MG GT SCH (05:37)
[2018-07-23] MEDS: INSULIN REGULAR, HUMAN 100 UNIT/ML 3 ML VIAL SQ PRN ×2 (05:37→18:21)
[2018-07-23] MEDS: GABAPENTIN 300 MG CAPSULE GT SCH ×3 (05:37→20:01)
[2018-07-23] MEDS: BLOOD SUGAR DIAGNOSTIC 1 EACH STRIP IN SCH ×2 (05:37→18:20)
[2018-07-23 08:01] VITALS: BP 142/70
[2018-07-23] MEDS: SIMETHICONE SUSP 40 MG/0.6 ML BOTTLE GT SCH ×2 (08:40→20:00)
[2018-07-23] MEDS: CALCIUM CARBONATE 500 MG TAB.CHEW GT SCH ×2 (08:45→16:10)
[2018-07-23] MEDS: PROSOURCE DIETARY LIQUID 30 ML LIQUID GT SCH ×2 (08:45→16:10)
[2018-07-23] MEDS: FERROUS SULFATE - FOR SA ONLY 330 MG/7.5 ML UDC GT SCH ×2 (08:45→16:10)
[2018-07-23] MEDS: ACIDOPHILUS/BULGARICUS 1 EACH TAB.CHEW GT SCH ×2 (08:45→16:10)
[2018-07-23] MEDS: LEVETIRACETAM SOL (5 ML) 100 MG/ML UDC GT SCH ×2 (08:45→20:00)
[2018-07-23] MEDS: TRILEPTAL GT SCH ×2 (08:45→20:00)
[2018-07-23] MEDS: MULTIVIT W/MINERALS 1 TAB TABLET GT SCH (08:45)
[2018-07-23] MEDS: Z GUARD REMEDY 4 OZ OINT TP SCH ×4 (09:00→20:01)
[2018-07-23] MEDS: HYDROGEN PEROXIDE 480 ML BOTTLE TP SCH ×2 (09:00→20:01)
[2018-07-23] MEDS: BALM TP SCH ×2 (09:00→20:01)
--- NOTE | 2018-07-23 11:35 | NUR ---
STEPHEN communicatew [facility] resident's sister about resident's dentist appt on August 16 and informed that IDT mtg will be held on 07/30 at 12:30PM
[2018-07-23] MEDS: GLUCERNA 1.2 1,000 ML BOTTLE GT PRN (16:10)
[2018-07-23 19:34] VITALS: BP 141/81
[2018-07-23 20:00] VITALS: BP 141/81
[2018-07-23] MEDS: ASCORBIC ACID 500 MG TABLET GT SCH (20:01)
[2018-07-24] MEDS: ALBUTEROL FS 2.5 MG/3 ML VIAL.NEB NEB SCH ×4 (01:28→19:33)
[2018-07-24] MEDS: BLOOD SUGAR DIAGNOSTIC 1 EACH STRIP IN SCH ×2 (05:16→17:52)
[2018-07-24] MEDS: GABAPENTIN 300 MG CAPSULE GT SCH ×3 (05:16→20:37)
[2018-07-24] MEDS: DEXILANT 30 MG GT SCH (05:16)
[2018-07-24] MEDS: INSULIN REGULAR, HUMAN 100 UNIT/ML 3 ML VIAL SQ PRN (05:26)
[2018-07-24 07:52] VITALS: BP 144/88
[2018-07-24] MEDS: LEVETIRACETAM SOL (5 ML) 100 MG/ML UDC GT SCH ×2 (08:03→20:37)
[2018-07-24] MEDS: FERROUS SULFATE - FOR SA ONLY 330 MG/7.5 ML UDC GT SCH ×2 (08:03→16:24)
[2018-07-24] MEDS: TRILEPTAL GT SCH ×2 (08:03→20:37)
[2018-07-24] MEDS: MULTIVIT W/MINERALS 1 TAB TABLET GT SCH (08:04)
[2018-07-24] MEDS: ACIDOPHILUS/BULGARICUS 1 EACH TAB.CHEW GT SCH ×2 (08:04→16:24)
[2018-07-24] MEDS: BALM TP SCH ×2 (08:05→20:37)
[2018-07-24] MEDS: PROSOURCE DIETARY LIQUID 30 ML LIQUID GT SCH ×2 (08:05→16:24)
[2018-07-24] MEDS: CALCIUM CARBONATE 500 MG TAB.CHEW GT SCH ×2 (08:05→16:24)
[2018-07-24] MEDS: SIMETHICONE SUSP 40 MG/0.6 ML BOTTLE GT SCH ×2 (08:05→20:37)
[2018-07-24] MEDS: Z GUARD REMEDY 4 OZ OINT TP SCH ×4 (08:05→20:37)
[2018-07-24] MEDS: HYDROGEN PEROXIDE 480 ML BOTTLE TP SCH ×2 (08:05→20:37)
--- NOTE | 2018-07-24 10:40 | NUR ---
Seen and examined by EUGENIE McmullenO given at this time.
[2018-07-24] MEDS: GLUCERNA 1.2 1,000 ML BOTTLE GT PRN (13:20)
--- NOTE | 2018-07-24 16:18 | NUR ---
RT NOTE: PATIENT RECEIVED TRACHED ON MECHANICAL VENT. ALARMS VERIFIED AND AUDIBLE. SUCTIONED AND LAVAGED MODERATE-LARGE AMOUNT OF THICK ZHANG SECRETIONS. AMBU BAG AND NEW TRACH AT [facility].
[2018-07-24] MEDS: ASCORBIC ACID 500 MG TABLET GT SCH (20:37)
[2018-07-24 22:42] VITALS: BP 134/76
[2018-07-25] MEDS: ALBUTEROL FS 2.5 MG/3 ML VIAL.NEB NEB SCH ×4 (02:22→19:32)
[2018-07-25] MEDS: GABAPENTIN 300 MG CAPSULE GT SCH ×3 (05:28→20:54)
[2018-07-25] MEDS: DEXILANT 30 MG GT SCH (05:28)
[2018-07-25] MEDS: INSULIN REGULAR, HUMAN 100 UNIT/ML 3 ML VIAL SQ PRN ×2 (05:28→17:39)
[2018-07-25] MEDS: BLOOD SUGAR DIAGNOSTIC 1 EACH STRIP IN SCH ×2 (05:28→17:38)
--- NOTE | 2018-07-25 05:32 | NUR ---
RT RECD PT TRACHED INTACT AND SECURED ON MECH VENT APRIL ORDERED SETTINGS. ALARMS ON AND AUDIBLE BAG AND MASK AT HOB TXS GIVEN APRIL WELL NO ADVERSE REACTION NOTED ATT SX THICK YELLOW MODERATE SECRETIONS NO RESP DISTRESS THROUGHOUT SHIFT WILL CONT TO MONITOR
[2018-07-25 07:30] VITALS: BP 126/71
[2018-07-25] MEDS: CALCIUM CARBONATE 500 MG TAB.CHEW GT SCH ×2 (08:38→16:22)
[2018-07-25] MEDS: LEVETIRACETAM SOL (5 ML) 100 MG/ML UDC GT SCH ×2 (08:38→20:54)
[2018-07-25] MEDS: PROSOURCE DIETARY LIQUID 30 ML LIQUID GT SCH ×2 (08:38→16:22)
[2018-07-25] MEDS: TRILEPTAL GT SCH ×2 (08:38→20:54)
[2018-07-25] MEDS: ACIDOPHILUS/BULGARICUS 1 EACH TAB.CHEW GT SCH ×2 (08:38→16:22)
[2018-07-25] MEDS: MULTIVIT W/MINERALS 1 TAB TABLET GT SCH (08:38)
[2018-07-25] MEDS: SIMETHICONE SUSP 40 MG/0.6 ML BOTTLE GT SCH ×2 (08:38→20:54)
[2018-07-25] MEDS: FERROUS SULFATE - FOR SA ONLY 330 MG/7.5 ML UDC GT SCH ×2 (08:38→16:22)
[2018-07-25] MEDS: HYDROGEN PEROXIDE 480 ML BOTTLE TP SCH ×2 (09:00→20:55)
[2018-07-25] MEDS: Z GUARD REMEDY 4 OZ OINT TP SCH ×4 (09:00→20:55)
[2018-07-25] MEDS: BALM TP SCH ×2 (09:00→20:55)
[2018-07-25] MEDS: GLUCERNA 1.2 1,000 ML BOTTLE GT PRN (10:43)
--- NOTE | 2018-07-25 16:28 | NUR ---
Pt noted with left lower extremity and right thigh rashes/dry skin. Received order to apply Triamcinolone cream 1% q shift for 14 days.
[2018-07-25 19:37] VITALS: BP 120/65
[2018-07-25] MEDS: MAGNESIUM HYDROXIDE 30 ML UDC GT PRN (20:00)
[2018-07-25] MEDS: ASCORBIC ACID 500 MG TABLET GT SCH (20:54)
[2018-07-25] MEDS: TRIAMCINOLONE ACETONIDE 0.1% CR 15 GM TUBE TP SCH ×2 (20:55)
--- NOTE | 2018-07-25 22:41 | NUR ---
RT PATIENT REC'D ON VENT ON NOTED SETTINGS. PT IS AWAKE BUT DOES NOT RESPOND TO COMMANDS. NO SOB, NO RESPIRATORY DISTRESS NOTED AT THIS TIME. TRACH TUBE PATENT, SECURE, IN PLACE. AMBU BAG BY BEDSIDE, TX GIVEN WITHOUT ADVERSE REACTION, PATIENT SUCTIONED WITH MODERATE THICK PALE YELLOW SECRETIONS, VENT ALARMS ON AND AUDIBLE, VENT PLUGGED IN RED OUTLET. WILL CONTINUE TO MONITOR. Addendum: 07/25/18 at 2242 by MARCO FRANCOIS RT Amended: Links added.
[2018-07-26] MEDS: ALBUTEROL FS 2.5 MG/3 ML VIAL.NEB NEB SCH ×4 (01:53→19:48)
[2018-07-26] MEDS: DEXILANT 30 MG GT SCH (05:31)
[2018-07-26] MEDS: INSULIN REGULAR, HUMAN 100 UNIT/ML 3 ML VIAL SQ PRN ×2 (05:31→17:57)
[2018-07-26] MEDS: BLOOD SUGAR DIAGNOSTIC 1 EACH STRIP IN SCH ×2 (05:31→17:42)
[2018-07-26] MEDS: GABAPENTIN 300 MG CAPSULE GT SCH ×3 (05:31→21:57)
[2018-07-26] MEDS: GLUCERNA 1.2 1,000 ML BOTTLE GT PRN (05:32)
[2018-07-26] MEDS: BISACODYL SUPP (10 MG) 10 MG/SUPP.RECT SUPP.RECT RC PRN (06:45)
--- NOTE | 2018-07-26 07:34 | NUR ---
Received female fariha pt on a mechanical vent. Pt fariha is secure. Vent is plugged into a red outlet, alarms are set and audible, and BMV is at bedside. Addendum: 07/26/18 at 0735 by MARKIE PINO RT Amended: Links added.
[2018-07-26 07:40] VITALS: BP 146/68
[2018-07-26] MEDS: SIMETHICONE SUSP 40 MG/0.6 ML BOTTLE GT SCH ×2 (08:14→20:00)
[2018-07-26] MEDS: FERROUS SULFATE - FOR SA ONLY 330 MG/7.5 ML UDC GT SCH ×2 (08:16→16:13)
[2018-07-26] MEDS: LEVETIRACETAM SOL (5 ML) 100 MG/ML UDC GT SCH ×2 (08:16→21:57)
[2018-07-26] MEDS: TRILEPTAL GT SCH ×2 (08:16→21:57)
[2018-07-26] MEDS: MULTIVIT W/MINERALS 1 TAB TABLET GT SCH (08:17)
[2018-07-26] MEDS: CALCIUM CARBONATE 500 MG TAB.CHEW GT SCH ×2 (08:17→16:13)
[2018-07-26] MEDS: PROSOURCE DIETARY LIQUID 30 ML LIQUID GT SCH ×2 (08:17→16:13)
[2018-07-26] MEDS: ACIDOPHILUS/BULGARICUS 1 EACH TAB.CHEW GT SCH ×2 (08:17→16:13)
[2018-07-26] MEDS: Z GUARD REMEDY 4 OZ OINT TP SCH ×4 (09:00→21:57)
[2018-07-26] MEDS: TRIAMCINOLONE ACETONIDE 0.1% CR 15 GM TUBE TP SCH ×4 (09:00→21:57)
[2018-07-26] MEDS: HYDROGEN PEROXIDE 480 ML BOTTLE TP SCH ×2 (09:00→21:57)
[2018-07-26] MEDS: BALM TP SCH ×2 (09:00→21:57)
[2018-07-26 20:03] VITALS: BP 112/68
[2018-07-26] MEDS: ASCORBIC ACID 500 MG TABLET GT SCH (21:57)
--- NOTE | 2018-07-26 22:11 | NUR ---
RT RECD PT TRACHED INTACT AND SECURED ON MECH VENT APRIL ORDERED SETTINGS. ALARMS ON AND AUDIBLE BAG AND MASK AT HOB TXS GIVEN APRIL WELL NO ADVERSE REACTION NOTED ATT NO RESP DISTRESS THROUGHOUT SHIFT WILL CONT TO MONITOR
[2018-07-27] MEDS: ALBUTEROL FS 2.5 MG/3 ML VIAL.NEB NEB SCH ×4 (00:57→19:19)
[2018-07-27] MEDS: DEXILANT 30 MG GT SCH (05:49)
[2018-07-27] MEDS: GABAPENTIN 300 MG CAPSULE GT SCH ×3 (05:49→20:12)
[2018-07-27] MEDS: BLOOD SUGAR DIAGNOSTIC 1 EACH STRIP IN SCH ×2 (05:56→17:56)
[2018-07-27] MEDS: INSULIN REGULAR, HUMAN 100 UNIT/ML 3 ML VIAL SQ PRN (05:56)
[2018-07-27] MEDS: GLUCERNA 1.2 1,000 ML BOTTLE GT PRN (06:57)
[2018-07-27 07:30] VITALS: BP 99/68
[2018-07-27] MEDS: SIMETHICONE SUSP 40 MG/0.6 ML BOTTLE GT SCH ×2 (08:46→20:12)
--- NOTE | 2018-07-27 09:00 | NUR ---
Seen and examined by Dr. Felix, no new order given.
[2018-07-27] MEDS: LEVETIRACETAM SOL (5 ML) 100 MG/ML UDC GT SCH ×2 (09:16→20:12)
[2018-07-27] MEDS: TRIAMCINOLONE ACETONIDE 0.1% CR 15 GM TUBE TP SCH ×4 (09:16→20:13)
[2018-07-27] MEDS: MULTIVIT W/MINERALS 1 TAB TABLET GT SCH (09:16)
[2018-07-27] MEDS: ACIDOPHILUS/BULGARICUS 1 EACH TAB.CHEW GT SCH ×2 (09:16→17:18)
[2018-07-27] MEDS: CALCIUM CARBONATE 500 MG TAB.CHEW GT SCH ×2 (09:16→17:18)
[2018-07-27] MEDS: PROSOURCE DIETARY LIQUID 30 ML LIQUID GT SCH ×2 (09:16→17:18)
[2018-07-27] MEDS: TRILEPTAL GT SCH ×2 (09:16→20:12)
[2018-07-27] MEDS: FERROUS SULFATE - FOR SA ONLY 330 MG/7.5 ML UDC GT SCH ×2 (09:16→17:18)
[2018-07-27] MEDS: Z GUARD REMEDY 4 OZ OINT TP SCH ×4 (09:17→20:13)
[2018-07-27] MEDS: BALM TP SCH ×2 (09:17→20:13)
[2018-07-27] MEDS: HYDROGEN PEROXIDE 480 ML BOTTLE TP SCH ×2 (09:17→20:13)
--- NOTE | 2018-07-27 11:43 | NUR ---
RT NOTE: PATIENT RECEIVED TRACHED ON MECHANICAL VENT. ALARMS VERIFIED AND AUDIBLE. SUCTIONED AND LAVAGED THICK ZHANG SECRETION. VENT PLUGGED INTO RED OUTLET. AMBU BAG AND NEW TRACH AT [facility].
--- NOTE | 2018-07-27 17:00 | NUR ---
Received order from Dr. Felix to start new vent setting on Thursday08/02/18 at 0800 and to do ABG at 0900 1 hour after the vent setting change.
[2018-07-27] MEDS: ASCORBIC ACID 500 MG TABLET GT SCH (20:12)
[2018-07-27 20:16] VITALS: BP 117/75
--- NOTE | 2018-07-27 23:00 | NUR ---
RN NOTES G tube replaced, placement check. Gastric residual 20ml aspirated. Tolerated well.
[2018-07-28] MEDS: ALBUTEROL FS 2.5 MG/3 ML VIAL.NEB NEB SCH ×4 (01:30→19:44)
[2018-07-28] MEDS: GABAPENTIN 300 MG CAPSULE GT SCH ×3 (05:36→20:49)
[2018-07-28] MEDS: BLOOD SUGAR DIAGNOSTIC 1 EACH STRIP IN SCH ×2 (05:36→17:46)
[2018-07-28] MEDS: DEXILANT 30 MG GT SCH (05:36)
[2018-07-28] MEDS: INSULIN REGULAR, HUMAN 100 UNIT/ML 3 ML VIAL SQ PRN (05:37)
[2018-07-28] MEDS: GLUCERNA 1.2 1,000 ML BOTTLE GT PRN ×2 (06:32→18:38)
[2018-07-28 07:27] VITALS: BP 148/85
[2018-07-28] MEDS: SIMETHICONE SUSP 40 MG/0.6 ML BOTTLE GT SCH ×2 (08:00→20:49)
--- NOTE | 2018-07-28 08:22 | NUR ---
RT Pt received trach'd and on [facility] vent w charted settings. Vent is plugged into red outlet. Alarms are on and audible. Trach is secure and patent. Traveling Buyer done. Hhn tx given and pt sx'd w no adverse reactions. No respiratory distress noted. Will continue to monitor. Addendum: 07/28/18 at 1159 by JULIETH REY RT Amended: Links added.
[2018-07-28] MEDS: Z GUARD REMEDY 4 OZ OINT TP SCH ×4 (09:00→20:50)
[2018-07-28] MEDS: HYDROGEN PEROXIDE 480 ML BOTTLE TP SCH ×2 (09:00→20:50)
[2018-07-28] MEDS: BALM TP SCH ×2 (09:00→20:50)
[2018-07-28] MEDS: MULTIVIT W/MINERALS 1 TAB TABLET GT SCH (09:00)
[2018-07-28] MEDS: TRIAMCINOLONE ACETONIDE 0.1% CR 15 GM TUBE TP SCH ×4 (09:00→20:49)
[2018-07-28] MEDS: TRILEPTAL GT SCH ×2 (09:34→20:49)
[2018-07-28] MEDS: LEVETIRACETAM SOL (5 ML) 100 MG/ML UDC GT SCH ×2 (09:34→20:49)
[2018-07-28] MEDS: FERROUS SULFATE - FOR SA ONLY 330 MG/7.5 ML UDC GT SCH ×2 (09:34→17:46)
[2018-07-28] MEDS: CALCIUM CARBONATE 500 MG TAB.CHEW GT SCH ×2 (09:34→17:46)
[2018-07-28] MEDS: PROSOURCE DIETARY LIQUID 30 ML LIQUID GT SCH ×2 (09:34→17:46)
[2018-07-28] MEDS: ACIDOPHILUS/BULGARICUS 1 EACH TAB.CHEW GT SCH ×2 (09:34→17:46)
[2018-07-28] MEDS: MAGNESIUM HYDROXIDE 30 ML UDC GT PRN (18:38)
--- NOTE | 2018-07-28 19:44 | NUR ---
RECEIVED TRACH SHILEY 8 XLT PT ON MECH VENT WITH NOTED SETTINGS. PT IS AWAKE, FOLLOW COMMANDS, NON VERBAL. TRACH IS PATENT AND SECURED. BUSINESS RISK ANALYST DONE. BREATHING TX GIVEN PER MD'S ORDER , NO ADVERSE REACTION NOTED. SX MODERATE AMOUNT OF PALE YELLOW THICK SECRETIONS. VENT PLUGGED INTO RED OUTLET. ALARMS ON AND AUDIBLE. AMBU BAG @ BEDSIDE. NO RESP DISTRESS AT THIS TIME. WILL CONT TO MONITOR PT.
[2018-07-28] MEDS: ASCORBIC ACID 500 MG TABLET GT SCH (20:49)
[2018-07-28 23:01] VITALS: BP 124/65
[2018-07-29] MEDS: ALBUTEROL FS 2.5 MG/3 ML VIAL.NEB NEB SCH ×4 (01:18→19:26)
[2018-07-29] MEDS: GABAPENTIN 300 MG CAPSULE GT SCH ×3 (05:14→20:30)
[2018-07-29] MEDS: DEXILANT 30 MG GT SCH (05:14)
[2018-07-29] MEDS: INSULIN REGULAR, HUMAN 100 UNIT/ML 3 ML VIAL SQ PRN (06:11)
[2018-07-29] MEDS: BLOOD SUGAR DIAGNOSTIC 1 EACH STRIP IN SCH ×2 (06:11→18:07)
[2018-07-29 07:16] VITALS: BP 108/58
[2018-07-29] MEDS: SIMETHICONE SUSP 40 MG/0.6 ML BOTTLE GT SCH ×2 (08:00→20:30)
[2018-07-29] MEDS: Z GUARD REMEDY 4 OZ OINT TP SCH ×4 (09:31→20:30)
[2018-07-29] MEDS: CALCIUM CARBONATE 500 MG TAB.CHEW GT SCH ×2 (09:31→17:00)
[2018-07-29] MEDS: TRILEPTAL GT SCH ×2 (09:31→20:30)
[2018-07-29] MEDS: MULTIVIT W/MINERALS 1 TAB TABLET GT SCH (09:31)
[2018-07-29] MEDS: HYDROGEN PEROXIDE 480 ML BOTTLE TP SCH ×2 (09:31→20:30)
[2018-07-29] MEDS: FERROUS SULFATE - FOR SA ONLY 330 MG/7.5 ML UDC GT SCH ×2 (09:31→17:00)
[2018-07-29] MEDS: TRIAMCINOLONE ACETONIDE 0.1% CR 15 GM TUBE TP SCH ×4 (09:31→20:30)
[2018-07-29] MEDS: PROSOURCE DIETARY LIQUID 30 ML LIQUID GT SCH ×2 (09:31→17:00)
[2018-07-29] MEDS: LEVETIRACETAM SOL (5 ML) 100 MG/ML UDC GT SCH ×2 (09:31→20:30)
[2018-07-29] MEDS: BALM TP SCH ×2 (09:31→20:30)
[2018-07-29] MEDS: ACIDOPHILUS/BULGARICUS 1 EACH TAB.CHEW GT SCH ×2 (09:31→17:00)
[2018-07-29] MEDS: GLUCERNA 1.2 1,000 ML BOTTLE GT PRN (18:07)
[2018-07-29 20:18] VITALS: BP 127/76
[2018-07-29] MEDS: ASCORBIC ACID 500 MG TABLET GT SCH (20:30)
[2018-07-29] MEDS: MAGNESIUM HYDROXIDE 30 ML UDC GT PRN (20:31)
--- NOTE | 2018-07-29 21:17 | NUR ---
RT NOTE PATIENT WAS RECEIVED ON CONTINUOUS VENT SUPPORT ON NOTED VENT SETTINGS. OVEN OPERATOR DONE. AMBU BAG @ BEDSIDE. Q6 BREATHING TX GIVEN WITH NO ADVERSE REACTION NOTED. SUCTION DONE PRN.TRACH TUBE PATENT AND SECURED. ALARMS ON AND AUDIBLE. NO RESPIRATORY DISTRESS NOTED AT THIS TIME. WILL CONTINUE TO MONITOR PATIENT. Addendum: 07/29/18 at 2117 by DIEGO BRADY RT Amended: Links added.
[2018-07-29] MEDS: BISACODYL SUPP (10 MG) 10 MG/SUPP.RECT SUPP.RECT RC PRN (23:44)
[2018-07-30] MEDS: ALBUTEROL FS 2.5 MG/3 ML VIAL.NEB NEB SCH ×4 (01:21→19:09)
[2018-07-30] MEDS: GABAPENTIN 300 MG CAPSULE GT SCH ×3 (05:00→21:40)
[2018-07-30] MEDS: DEXILANT 30 MG GT SCH (06:09)
[2018-07-30] MEDS: BLOOD SUGAR DIAGNOSTIC 1 EACH STRIP IN SCH ×2 (06:09→17:12)
[2018-07-30] MEDS: INSULIN REGULAR, HUMAN 100 UNIT/ML 3 ML VIAL SQ PRN ×2 (06:10→17:13)
--- NOTE | 2018-07-30 07:27 | NUR ---
Female trach pt received on a mechanical vent. Pt fariha is secure. Vent is plugged into a red outlet, alarms are set and audible, and BMV is at bedside. Addendum: 07/30/18 at 0727 by MARKIE PINO RT Amended: Links added.
[2018-07-30] MEDS: SIMETHICONE SUSP 40 MG/0.6 ML BOTTLE GT SCH ×2 (08:00→20:00)
[2018-07-30] MEDS: FERROUS SULFATE - FOR SA ONLY 330 MG/7.5 ML UDC GT SCH ×2 (09:00→16:58)
[2018-07-30] MEDS: Z GUARD REMEDY 4 OZ OINT TP SCH ×4 (09:00→21:40)
[2018-07-30] MEDS: PROSOURCE DIETARY LIQUID 30 ML LIQUID GT SCH ×2 (09:00→16:58)
[2018-07-30] MEDS: HYDROGEN PEROXIDE 480 ML BOTTLE TP SCH ×2 (09:00→21:40)
[2018-07-30] MEDS: ACIDOPHILUS/BULGARICUS 1 EACH TAB.CHEW GT SCH ×2 (09:00→16:58)
[2018-07-30] MEDS: BALM TP SCH (09:00)
[2018-07-30] MEDS: MULTIVIT W/MINERALS 1 TAB TABLET GT SCH (09:00)
[2018-07-30] MEDS: LEVETIRACETAM SOL (5 ML) 100 MG/ML UDC GT SCH ×2 (09:00→21:40)
[2018-07-30] MEDS: CALCIUM CARBONATE 500 MG TAB.CHEW GT SCH ×2 (09:00→16:58)
[2018-07-30] MEDS: TRILEPTAL GT SCH ×2 (09:00→21:40)
[2018-07-30] MEDS: TRIAMCINOLONE ACETONIDE 0.1% CR 15 GM TUBE TP SCH ×4 (09:00→21:40)
--- NOTE | 2018-07-30 09:52 | NUR ---
INTERDISCIPLINARY PLAN OF CARE CONFERENCE was held today. Resident's sister Beckie Chu attended today's IDT meeting. Dr. Felix and the interdisciplinary team discussed the current plan of care in detail. Current orders as well as treatments and medications were reviewed. Pharmacy recommended stool softening Colace 100 mg a day , MD agreed.Sister asked for the previous IDT mtg copy and said will come next Thursday to pick it up.
--- NOTE | 2018-07-30 10:59 | NUR ---
Seen and examined by Dr. Montaño, NNO given.
--- NOTE | 2018-07-30 14:30 | NUR ---
INTERDISCIPLINARY PLAN OF CARE CONFERENCE was held today. Resident's sister Beckie Chu attended today's IDT meeting. Dr. Felix and the interdisciplinary team discussed the current plan of care in detail. Current orders as well as treatments and medications were reviewed. Patient with L and R buttocks excoriation noted on 07/21 being treated with Z-guard which is responding to treatment well. Lower extremity rashes present being treated with Triamcinolone with good response.. Dr Felix ordered to start weaning patient from ventilator on Thursday08/02/18. Beckie is pleased to hear the plan. Pharmacy recommended Trileptal MD russ agreed. Bag balm not consistently available from family but sister is happy with the condition of patient's skin, A&D being use as substitute, order clarified. Patient also given routine stool softener due to episode of constipation. Orders carried out.
[2018-07-30 14:43] VITALS: BP 157/54
[2018-07-30] MEDS: GLUCERNA 1.2 1,000 ML BOTTLE GT PRN (17:13)
[2018-07-30 20:00] VITALS: BP 133/68
[2018-07-30] MEDS: [UNRECOGNIZED DRUG - OTHER] TP SCH (21:40)
[2018-07-30] MEDS: VIT A TP SCH (21:40)
[2018-07-30] MEDS: ASCORBIC ACID 500 MG TABLET GT SCH (21:40)
[2018-07-31] MEDS: ALBUTEROL FS 2.5 MG/3 ML VIAL.NEB NEB SCH ×4 (00:53→19:14)
--- NOTE | 2018-07-31 01:44 | NUR ---
RT NOTE PT RECEIVED ON [facility] VENT ON THE FOLLOWING NOTED SETTINGS. NO RESP DISTRESS OR SOB NOTED. PT SX'D. BREATHING TX GIVEN, NO ADVERSE REACTION NOTED. VENT IS PLUGGED INTO RED OUTLET. ALARMS ARE ON AND AUDIBLE. AMBU BAG AND SPARE TRACH ARE AT BEDSIDE. WILL CONT TO MONITOR PT. Addendum: 07/31/18 at 0144 by MARLA ALCOCER RT Amended: Links added.
[2018-07-31] MEDS: INSULIN REGULAR, HUMAN 100 UNIT/ML 3 ML VIAL SQ PRN ×2 (05:49→18:17)
[2018-07-31] MEDS: DEXILANT 30 MG GT SCH (05:49)
[2018-07-31] MEDS: GABAPENTIN 300 MG CAPSULE GT SCH ×3 (05:49→20:36)
[2018-07-31] MEDS: BLOOD SUGAR DIAGNOSTIC 1 EACH STRIP IN SCH ×2 (05:49→18:16)
[2018-07-31 07:42] VITALS: BP 119/58
[2018-07-31] MEDS: SIMETHICONE SUSP 40 MG/0.6 ML BOTTLE GT SCH ×2 (08:00→20:36)
[2018-07-31] MEDS: Z GUARD REMEDY 4 OZ OINT TP SCH ×4 (09:00→20:36)
[2018-07-31] MEDS: TRIAMCINOLONE ACETONIDE 0.1% CR 15 GM TUBE TP SCH ×4 (09:00→20:36)
[2018-07-31] MEDS: [UNRECOGNIZED DRUG - OTHER] TP SCH ×2 (09:00→20:36)
[2018-07-31] MEDS: HYDROGEN PEROXIDE 480 ML BOTTLE TP SCH ×2 (09:00→20:36)
[2018-07-31] MEDS: VIT A TP SCH ×2 (09:00→20:36)
[2018-07-31] MEDS: FERROUS SULFATE - FOR SA ONLY 330 MG/7.5 ML UDC GT SCH ×2 (09:35→17:15)
[2018-07-31] MEDS: DOCUSATE SODIUM LIQ 100 MG/10 ML UDC GT SCH (09:35)
[2018-07-31] MEDS: LEVETIRACETAM SOL (5 ML) 100 MG/ML UDC GT SCH ×2 (09:37→20:36)
[2018-07-31] MEDS: TRILEPTAL GT SCH ×2 (09:37→20:36)
[2018-07-31] MEDS: PROSOURCE DIETARY LIQUID 30 ML LIQUID GT SCH ×2 (09:38→17:15)
[2018-07-31] MEDS: ACIDOPHILUS/BULGARICUS 1 EACH TAB.CHEW GT SCH ×2 (09:38→17:15)
[2018-07-31] MEDS: CALCIUM CARBONATE 500 MG TAB.CHEW GT SCH ×2 (09:39→17:15)
[2018-07-31] MEDS: MULTIVIT W/MINERALS 1 TAB TABLET GT SCH (09:40)
[2018-07-31] MEDS: GLUCERNA 1.2 1,000 ML BOTTLE GT PRN (13:02)
[2018-07-31 19:51] VITALS: BP 135/69
--- NOTE | 2018-07-31 20:06 | NUR ---
RT NOTE PT RECEIVED ON [facility] VENT ON THE FOLLOWING NOTED SETTINGS. NO RESP DISTRESS OR SOB NOTED AT THIS TIME. PT SX'D. BREATHING TX GIVEN, NO ADVERSE REACTIONS NOTED. VENT IS PLUGGED INTO RED OUTLET. ALARMS ARE ON AND AUDIBLE. AMBU BAG AND SPARE TRACH ARE AT BEDSIDE. WILL CONT TO MONITOR PT. Addendum: 07/31/18 at 2006 by MARLA ALCOCER RT Amended: Links added.
[2018-07-31] MEDS: ASCORBIC ACID 500 MG TABLET GT SCH (20:36)
[2018-07-31] MEDS: MAGNESIUM HYDROXIDE 30 ML UDC GT PRN (22:58)
[2018-08-01] MEDS: ALBUTEROL FS 2.5 MG/3 ML VIAL.NEB NEB SCH ×4 (01:19→19:21)
[2018-08-01] MEDS: BLOOD SUGAR DIAGNOSTIC 1 EACH STRIP IN SCH ×2 (05:28→17:36)
[2018-08-01] MEDS: DEXILANT 30 MG GT SCH (05:28)
[2018-08-01] MEDS: GABAPENTIN 300 MG CAPSULE GT SCH ×3 (05:28→21:02)
[2018-08-01] MEDS: INSULIN REGULAR, HUMAN 100 UNIT/ML 3 ML VIAL SQ PRN ×2 (05:29→17:36)
--- NOTE | 2018-08-01 07:24 | NUR ---
Female trach pt on a mechanical vent. Pt trach is secure. Vent is plugged into a red outlet, alarms are set and audible, and BMV is at bedside. Addendum: 08/01/18 at 0724 by MARKIE PINO RT Amended: Links added.
[2018-08-01 07:34] VITALS: BP 138/66
[2018-08-01] MEDS: SIMETHICONE SUSP 40 MG/0.6 ML BOTTLE GT SCH ×2 (08:00→20:23)
[2018-08-01] MEDS: [UNRECOGNIZED DRUG - OTHER] TP SCH ×2 (09:00→21:03)
[2018-08-01] MEDS: VIT A TP SCH ×2 (09:00→21:03)
[2018-08-01] MEDS: TRIAMCINOLONE ACETONIDE 0.1% CR 15 GM TUBE TP SCH ×4 (09:00→21:03)
[2018-08-01] MEDS: HYDROGEN PEROXIDE 480 ML BOTTLE TP SCH ×2 (09:00→21:03)
[2018-08-01] MEDS: Z GUARD REMEDY 4 OZ OINT TP SCH ×4 (09:00→21:04)
[2018-08-01] MEDS: TRILEPTAL GT SCH ×2 (09:33→21:02)
[2018-08-01] MEDS: FERROUS SULFATE - FOR SA ONLY 330 MG/7.5 ML UDC GT SCH ×2 (09:33→17:23)
[2018-08-01] MEDS: LEVETIRACETAM SOL (5 ML) 100 MG/ML UDC GT SCH ×2 (09:33→21:02)
[2018-08-01] MEDS: DOCUSATE SODIUM LIQ 100 MG/10 ML UDC GT SCH (09:33)
[2018-08-01] MEDS: CALCIUM CARBONATE 500 MG TAB.CHEW GT SCH ×2 (09:34→17:36)
[2018-08-01] MEDS: ACIDOPHILUS/BULGARICUS 1 EACH TAB.CHEW GT SCH ×2 (09:34→17:24)
[2018-08-01] MEDS: PROSOURCE DIETARY LIQUID 30 ML LIQUID GT SCH ×2 (09:34→17:24)
[2018-08-01] MEDS: MULTIVIT W/MINERALS 1 TAB TABLET GT SCH (09:41)
[2018-08-01] MEDS: GLUCERNA 1.2 1,000 ML BOTTLE GT PRN (11:13)
[2018-08-01 19:38] VITALS: BP 134/79
[2018-08-01 20:00] VITALS: BP 134/79
[2018-08-01] MEDS: ASCORBIC ACID 500 MG TABLET GT SCH (21:03)
--- NOTE | 2018-08-01 21:15 | NUR ---
RT NOTE PATIENT WAS RECEIVED ON CONTINUOUS VENT SUPPORT ON NOTED VENT SETTINGS. HHN INLINE TREATMENT WAS GIVEN, NO ADVERSE REACTION NOTED ,PRN SUCTION WAS DONE. TRACH TUBE PATENT AND SECURED. ALARMS ON AND AUDIBLE. WILL CONTINUE TO MONITOR PATIENT Addendum: 08/01/18 at 2116 by DIEGO BRADY RT Amended: Links added.
[2018-08-02] MEDS: ALBUTEROL FS 2.5 MG/3 ML VIAL.NEB NEB SCH ×4 (01:31→19:36)
[2018-08-02] MEDS: GABAPENTIN 300 MG CAPSULE GT SCH ×3 (04:03→20:59)
[2018-08-02] MEDS: DEXILANT 30 MG GT SCH (05:02)
[2018-08-02] MEDS: BLOOD SUGAR DIAGNOSTIC 1 EACH STRIP IN SCH ×2 (05:33→17:07)
[2018-08-02] MEDS: SIMETHICONE SUSP 40 MG/0.6 ML BOTTLE GT SCH ×2 (08:00→20:58)
[2018-08-02] MEDS: Z GUARD REMEDY 4 OZ OINT TP SCH ×4 (09:00→20:59)
[2018-08-02] MEDS: TRIAMCINOLONE ACETONIDE 0.1% CR 15 GM TUBE TP SCH ×4 (09:00→20:59)
[2018-08-02] MEDS: HYDROGEN PEROXIDE 480 ML BOTTLE TP SCH ×2 (09:00→20:59)
[2018-08-02] MEDS: VIT A TP SCH ×2 (09:00→20:59)
[2018-08-02] MEDS: [UNRECOGNIZED DRUG - OTHER] TP SCH ×2 (09:00→20:59)
[2018-08-02] MEDS: TRILEPTAL GT SCH ×2 (09:46→20:59)
[2018-08-02] MEDS: LEVETIRACETAM SOL (5 ML) 100 MG/ML UDC GT SCH ×2 (09:46→20:59)
[2018-08-02] MEDS: PROSOURCE DIETARY LIQUID 30 ML LIQUID GT SCH ×2 (09:46→16:58)
[2018-08-02] MEDS: FERROUS SULFATE - FOR SA ONLY 330 MG/7.5 ML UDC GT SCH ×2 (09:46→16:58)
[2018-08-02] MEDS: MULTIVIT W/MINERALS 1 TAB TABLET GT SCH (09:46)
[2018-08-02] MEDS: ACIDOPHILUS/BULGARICUS 1 EACH TAB.CHEW GT SCH ×2 (09:46→16:58)
[2018-08-02] MEDS: CALCIUM CARBONATE 500 MG TAB.CHEW GT SCH ×2 (09:46→16:58)
[2018-08-02] MEDS: DOCUSATE SODIUM LIQ 100 MG/10 ML UDC GT SCH (09:46)
[2018-08-02 11:01] VITALS: BP 117/55
[2018-08-02] MEDS: GLUCERNA 1.2 1,000 ML BOTTLE GT PRN (12:50)
[2018-08-02 15:52] LABS: ABG BASE EXCESS 0.7 mmol/L; ABG OXYGEN SATURATION 98.3 % (92.0-98.5); ABG PCO2 34.5 mmHg (35.0-45.0); ABG PH 7.464 (7.350-7.450); ABG PO2 145.3 mmHg (75.0-100.0); AaDO2 28.1 mmHg; COHb 0.3 % (0.5-1.5); MetHb 0.5 % (0.0-1.5); O2Hb 97.5 % (94.0-97.0); SITE, ABG Right Radial; VENT MODE, BG SIMV PSV 15; VT, ABG 550 mL
--- NOTE | 2018-08-02 16:10 | NUR ---
Pt was placed on SIMV and ABG result relayed to Dr Felix. Pt tolerating SIMV well. No respiratory distress, O2 sat 99-100%, HR 88. He ordered to keep pt on SIMV as tolerated and to place on CPAP PSV 25 PEEP +5 tomorrow, ABG after 2 hours of CPAP. Informed pt's sister.
[2018-08-02] MEDS: INSULIN REGULAR, HUMAN 100 UNIT/ML 3 ML VIAL SQ PRN (17:07)
[2018-08-02] MEDS: MAGNESIUM HYDROXIDE 30 ML UDC GT PRN (18:47)
[2018-08-02 20:00] VITALS: BP 140/72
[2018-08-02] MEDS: ASCORBIC ACID 500 MG TABLET GT SCH (20:59)
[2018-08-03] MEDS: ALBUTEROL FS 2.5 MG/3 ML VIAL.NEB NEB SCH ×4 (01:20→20:10)
[2018-08-03] MEDS: GLUCERNA 1.2 1,000 ML BOTTLE GT PRN (05:50)
[2018-08-03] MEDS: DEXILANT 30 MG GT SCH (05:50)
[2018-08-03] MEDS: GABAPENTIN 300 MG CAPSULE GT SCH ×3 (05:50→20:18)
[2018-08-03] MEDS: BLOOD SUGAR DIAGNOSTIC 1 EACH STRIP IN SCH ×2 (06:29→17:11)
[2018-08-03] MEDS: INSULIN REGULAR, HUMAN 100 UNIT/ML 3 ML VIAL SQ PRN ×2 (06:30→17:17)
[2018-08-03] MEDS: BISACODYL SUPP (10 MG) 10 MG/SUPP.RECT SUPP.RECT RC PRN (06:48)
[2018-08-03 07:36] VITALS: BP 110/64
[2018-08-03] MEDS: SIMETHICONE SUSP 40 MG/0.6 ML BOTTLE GT SCH ×2 (08:00→20:18)
--- NOTE | 2018-08-03 08:00 | NUR ---
Resident started on CPAP by RT, appears comfortable. Resp. even and unlabored. O2 sat.- 99%. No s/sx of resp. distress. Will continue to monitor.
--- NOTE | 2018-08-03 08:13 | NUR ---
PT REC'D ON VENT VIA SHILEY XLT TRACH. PT WAS ON SIMV AT THE START OF THE SHIFT. PT IS CURRENTLY ON CPAP MODE PER DR. FLORES REQUEST. CARPET JACK DONE. PT SEEMS TO BE TOLERATING CPAP MODE SO FAR. ALARMS SET AND AUDIBLE TO NURSES STATION. INBOUND TELEMARKETER AWARE OF VENT CHANGES. AMBU BAG AT [facility]. VENT PLUGGED INTO RED OUTLET. SX'D SCANT AMT OF THICK SECRETIONS. B/S BILAT. EQUAL AND COARSE. Addendum: 08/03/18 at 0815 by KEVIN KWONG RT Amended: Links added.
[2018-08-03] MEDS: LEVETIRACETAM SOL (5 ML) 100 MG/ML UDC GT SCH ×2 (09:00→20:18)
[2018-08-03] MEDS: VIT A TP SCH ×2 (09:00→20:19)
[2018-08-03] MEDS: CALCIUM CARBONATE 500 MG TAB.CHEW GT SCH ×2 (09:00→17:11)
[2018-08-03] MEDS: TRIAMCINOLONE ACETONIDE 0.1% CR 15 GM TUBE TP SCH ×4 (09:00→20:19)
[2018-08-03] MEDS: PROSOURCE DIETARY LIQUID 30 ML LIQUID GT SCH ×2 (09:00→17:11)
[2018-08-03] MEDS: [UNRECOGNIZED DRUG - OTHER] TP SCH ×2 (09:00→20:19)
[2018-08-03] MEDS: HYDROGEN PEROXIDE 480 ML BOTTLE TP SCH ×2 (09:00→20:19)
[2018-08-03] MEDS: ACIDOPHILUS/BULGARICUS 1 EACH TAB.CHEW GT SCH ×2 (09:00→17:10)
[2018-08-03] MEDS: TRILEPTAL GT SCH ×2 (09:00→20:18)
[2018-08-03] MEDS: MULTIVIT W/MINERALS 1 TAB TABLET GT SCH (09:00)
[2018-08-03] MEDS: Z GUARD REMEDY 4 OZ OINT TP SCH ×5 (09:00→20:19)
--- NOTE | 2018-08-03 09:30 | NUR ---
Seen and examined by Dr. Felix, no new order given.
[2018-08-03] MEDS: DOCUSATE SODIUM LIQ 100 MG/10 ML UDC GT SCH (09:58)
[2018-08-03] MEDS: FERROUS SULFATE - FOR SA ONLY 330 MG/7.5 ML UDC GT SCH ×2 (09:59→17:10)
--- NOTE | 2018-08-03 10:00 | NUR ---
ABG 2 hrs post CPAP done by RT and result relayed to Dr. Felix.
[2018-08-03 10:09] LABS: ABG BASE EXCESS 2.8 mmol/L; ABG OXYGEN SATURATION 96.3 % (92.0-98.5); ABG PCO2 45.6 mmHg (35.0-45.0); ABG PH 7.405 (7.350-7.450); ABG PO2 91.4 mmHg (75.0-100.0); AaDO2 68.9 mmHg; COHb 0.3 % (0.5-1.5); MetHb 0.6 % (0.0-1.5); O2Hb 95.4 % (94.0-97.0); PEEP,BG 5 cm H2O; SITE, ABG Right Radial; VENT MODE, BG CPAP
[2018-08-03] MEDS: ASCORBIC ACID 500 MG TABLET GT SCH (20:18)
[2018-08-03 20:28] VITALS: BP 125/78
[2018-08-04] MEDS: ALBUTEROL FS 2.5 MG/3 ML VIAL.NEB NEB SCH ×4 (01:39→19:25)
[2018-08-04] MEDS: GABAPENTIN 300 MG CAPSULE GT SCH ×3 (05:36→20:38)
[2018-08-04] MEDS: DEXILANT 30 MG GT SCH (05:36)
[2018-08-04] MEDS: BLOOD SUGAR DIAGNOSTIC 1 EACH STRIP IN SCH ×2 (06:25→17:58)
[2018-08-04] MEDS: GLUCERNA 1.2 1,000 ML BOTTLE GT PRN ×2 (06:26→22:48)
[2018-08-04] MEDS: INSULIN REGULAR, HUMAN 100 UNIT/ML 3 ML VIAL SQ PRN (06:26)
[2018-08-04 07:58] VITALS: BP 125/75
[2018-08-04] MEDS: SIMETHICONE SUSP 40 MG/0.6 ML BOTTLE GT SCH ×2 (08:00→20:38)
[2018-08-04] MEDS: DOCUSATE SODIUM LIQ 100 MG/10 ML UDC GT SCH (09:00)
[2018-08-04] MEDS: FERROUS SULFATE - FOR SA ONLY 330 MG/7.5 ML UDC GT SCH ×2 (09:00→17:58)
[2018-08-04] MEDS: CALCIUM CARBONATE 500 MG TAB.CHEW GT SCH ×2 (09:00→17:58)
[2018-08-04] MEDS: Z GUARD REMEDY 4 OZ OINT TP SCH ×4 (09:00→20:39)
[2018-08-04] MEDS: PROSOURCE DIETARY LIQUID 30 ML LIQUID GT SCH ×2 (09:00→17:58)
[2018-08-04] MEDS: MULTIVIT W/MINERALS 1 TAB TABLET GT SCH (09:00)
[2018-08-04] MEDS: TRIAMCINOLONE ACETONIDE 0.1% CR 15 GM TUBE TP SCH ×4 (09:00→20:38)
[2018-08-04] MEDS: LEVETIRACETAM SOL (5 ML) 100 MG/ML UDC GT SCH ×2 (09:00→20:38)
[2018-08-04] MEDS: [UNRECOGNIZED DRUG - OTHER] TP SCH ×2 (09:00→20:38)
[2018-08-04] MEDS: HYDROGEN PEROXIDE 480 ML BOTTLE TP SCH ×2 (09:00→20:38)
[2018-08-04] MEDS: TRILEPTAL GT SCH ×2 (09:00→20:38)
[2018-08-04] MEDS: VIT A TP SCH ×2 (09:00→20:38)
[2018-08-04] MEDS: ACIDOPHILUS/BULGARICUS 1 EACH TAB.CHEW GT SCH ×2 (09:00→17:58)
--- NOTE | 2018-08-04 09:45 | NUR ---
Dr. Felix came and saw patient, he has new order to start today put patient cool aerosol in the morning and CPAP at night. RT on duty made aware. RT reported patient only tolerated cool aerosol for 10 minutes, noted SOB, resp. rate 36/min, HR elevated 120/min, but with 02 sat of 98%. RT put back patient to CPAP, tolerating well. Patient resting comfortably at this time, no resp. distress noted. Closely monitored.
--- NOTE | 2018-08-04 10:00 | NUR ---
placed on cool aerosol via trach per dr. mondragon. Addendum: 08/04/18 at 1303 by VIVEK PHILLIP RT Amended: Links added.
--- NOTE | 2018-08-04 10:10 | NUR ---
placed back to vent with cpap/ ps mode due to increased wob. hr 120 spo2 96% rr 36 charge nurse notified on above changes. Addendum: 08/04/18 at 1310 by VIVEK PHILLIP RT Amended: Links added.
[2018-08-04] MEDS: MAGNESIUM HYDROXIDE 30 ML UDC GT PRN (17:59)
--- NOTE | 2018-08-04 19:25 | NUR ---
RT NOTE: RECEIVED TRACH PT ON [facility] VENT ON NOTED SETTINGS PER MD ORDERS. TRACH IS PATENT AND SECURED. CRISIS MENTAL HEALTH THERAPIST DONE. Q6 BREATHING TX GIVEN WITH NO ADVERSE REACTION NOTED. SX DONE PRN. VENT PLUGGED INTO RED OUTLET. ALARMS ON AND AUDIBLE. NEVA BAG @ BEDSIDE. NO RESP DISTRESS AT THIS TIME. WILL CONT TO MONITOR PT. Addendum: 08/05/18 at 0228 by QIANA MARY RT Amended: Links added.
[2018-08-04 20:33] VITALS: BP 133/74
[2018-08-04] MEDS: ASCORBIC ACID 500 MG TABLET GT SCH (20:38)
[2018-08-05] MEDS: ALBUTEROL FS 2.5 MG/3 ML VIAL.NEB NEB SCH ×4 (01:27→20:09)
[2018-08-05] MEDS: GABAPENTIN 300 MG CAPSULE GT SCH ×3 (05:33→21:32)
[2018-08-05] MEDS: DEXILANT 30 MG GT SCH (05:33)
[2018-08-05] MEDS: INSULIN REGULAR, HUMAN 100 UNIT/ML 3 ML VIAL SQ PRN (05:58)
[2018-08-05] MEDS: BLOOD SUGAR DIAGNOSTIC 1 EACH STRIP IN SCH ×2 (05:58→17:28)
--- NOTE | 2018-08-05 06:46 | NUR ---
Pt urine output looks cloudy,afebrile.Will continue to monitor.
[2018-08-05 07:43] VITALS: BP 116/63
[2018-08-05] MEDS: SIMETHICONE SUSP 40 MG/0.6 ML BOTTLE GT SCH ×2 (08:00→20:00)
[2018-08-05] MEDS: PROSOURCE DIETARY LIQUID 30 ML LIQUID GT SCH ×2 (09:27→16:14)
[2018-08-05] MEDS: FERROUS SULFATE - FOR SA ONLY 330 MG/7.5 ML UDC GT SCH ×2 (09:27→16:14)
[2018-08-05] MEDS: TRILEPTAL GT SCH (09:27)
[2018-08-05] MEDS: CALCIUM CARBONATE 500 MG TAB.CHEW GT SCH ×2 (09:27→16:14)
[2018-08-05] MEDS: MULTIVIT W/MINERALS 1 TAB TABLET GT SCH (09:27)
[2018-08-05] MEDS: ACIDOPHILUS/BULGARICUS 1 EACH TAB.CHEW GT SCH ×2 (09:27→16:14)
[2018-08-05] MEDS: LEVETIRACETAM SOL (5 ML) 100 MG/ML UDC GT SCH ×2 (09:27→21:32)
[2018-08-05] MEDS: DOCUSATE SODIUM LIQ 100 MG/10 ML UDC GT SCH (09:27)
[2018-08-05] MEDS: HYDROGEN PEROXIDE 480 ML BOTTLE TP SCH ×2 (09:52→21:32)
[2018-08-05] MEDS: [UNRECOGNIZED DRUG - OTHER] TP SCH ×2 (09:52→21:32)
[2018-08-05] MEDS: VIT A TP SCH ×2 (09:52→21:32)
[2018-08-05] MEDS: Z GUARD REMEDY 4 OZ OINT TP SCH ×4 (09:52→21:32)
[2018-08-05] MEDS: TRIAMCINOLONE ACETONIDE 0.1% CR 15 GM TUBE TP SCH ×4 (09:52→21:32)
--- NOTE | 2018-08-05 10:20 | NUR ---
Pt's sister Beckie called and updated her on patient's status. Informed Beckie that patient was not able to tolerate cool aerosol trial yesterday and was placed back on vent with CPAP setting. Pt currently on CPAP vent setting, tolerating well. No SOB/ no distress noted. Beckie verbalized understanding, appreciative of update.
--- NOTE | 2018-08-05 15:43 | NUR ---
Pt tolerated CPAP mode well. Pt trach is secure. Vent is plugged into a red outlet, alarms are set and audible, and BMV is at bedside. Addendum: 08/05/18 at 1544 by MARKIE PINO RT Amended: Links added.
--- NOTE | 2018-08-05 16:00 | NUR ---
Urine yellow in color, clear. Pt afebrile. Proper pericare rendered and hydration provided.
[2018-08-05] MEDS: GLUCERNA 1.2 1,000 ML BOTTLE GT PRN (17:28)
--- NOTE | 2018-08-05 18:02 | NUR ---
Relayed trileptal level of 50 drawn on 08/02/[address] Montaño. Order obtained to hold Trileptal dose and recheck level in AM. Order carried out.
--- NOTE | 2018-08-05 19:30 | NUR ---
Seen by NAN FRY.
--- NOTE | 2018-08-05 20:10 | NUR ---
RT Pt received trach'd and on [facility] vent w charted settings. Vent is plugged into red outlet. Alarms are on and audible. Trach is secure and patent. Newspaper Copy Editor done. Hhn tx given and pt sx'd w no adverse reactions. No respiratory distress noted. Will continue to monitor. Addendum: 08/05/18 at 2106 by JULIETH REY RT Amended: Links added.
[2018-08-05 20:20] VITALS: BP 127/75
[2018-08-05] MEDS: ASCORBIC ACID 500 MG TABLET GT SCH (21:32)
[2018-08-06] MEDS: ALBUTEROL FS 2.5 MG/3 ML VIAL.NEB NEB SCH ×4 (01:52→19:36)
[2018-08-06] MEDS: GABAPENTIN 300 MG CAPSULE GT SCH ×3 (05:21→20:35)
[2018-08-06] MEDS: INSULIN REGULAR, HUMAN 100 UNIT/ML 3 ML VIAL SQ PRN (05:21)
[2018-08-06] MEDS: BLOOD SUGAR DIAGNOSTIC 1 EACH STRIP IN SCH ×2 (05:21→18:04)
[2018-08-06] MEDS: DEXILANT 30 MG GT SCH (05:21)
[2018-08-06 07:40] VITALS: BP 110/61
[2018-08-06] MEDS: SIMETHICONE SUSP 40 MG/0.6 ML BOTTLE GT SCH ×2 (08:00→20:35)
--- NOTE | 2018-08-06 08:10 | NUR ---
Seen and examined by NAN Vargas, no new order given. Trileptal level result pending.
--- NOTE | 2018-08-06 09:21 | NUR ---
pt rec'd trached on mech vent on cpap mode. no resp distress or sob noted. trach patent and secured. sx'd for thick mod amt of pale yellow secretions. alarms are set and audible. vent plugged into red outlet. ambu bag and back up trach bedside. will continue to monitor. Addendum: 08/06/18 at 0922 by LADAN WICK RT Amended: Links added.
[2018-08-06] MEDS: MULTIVIT W/MINERALS 1 TAB TABLET GT SCH (09:33)
[2018-08-06] MEDS: CALCIUM CARBONATE 500 MG TAB.CHEW GT SCH ×2 (09:33→16:10)
[2018-08-06] MEDS: DOCUSATE SODIUM LIQ 100 MG/10 ML UDC GT SCH (09:33)
[2018-08-06] MEDS: FERROUS SULFATE - FOR SA ONLY 330 MG/7.5 ML UDC GT SCH ×2 (09:33→16:10)
[2018-08-06] MEDS: ACIDOPHILUS/BULGARICUS 1 EACH TAB.CHEW GT SCH ×2 (09:33→16:10)
[2018-08-06] MEDS: LEVETIRACETAM SOL (5 ML) 100 MG/ML UDC GT SCH ×2 (09:33→20:35)
[2018-08-06] MEDS: PROSOURCE DIETARY LIQUID 30 ML LIQUID GT SCH ×2 (09:33→16:10)
[2018-08-06] MEDS: HYDROGEN PEROXIDE 480 ML BOTTLE TP SCH ×2 (09:36→20:36)
[2018-08-06] MEDS: [UNRECOGNIZED DRUG - OTHER] TP SCH ×2 (09:36→20:36)
[2018-08-06] MEDS: TRIAMCINOLONE ACETONIDE 0.1% CR 15 GM TUBE TP SCH ×4 (09:36→20:35)
[2018-08-06] MEDS: VIT A TP SCH ×2 (09:36→20:36)
[2018-08-06] MEDS: Z GUARD REMEDY 4 OZ OINT TP SCH ×4 (09:37→20:36)
[2018-08-06] MEDS: GLUCERNA 1.2 1,000 ML BOTTLE GT PRN (16:10)
--- NOTE | 2018-08-06 18:30 | NUR ---
Left a message to Dr. Luis that Trileptal level result is not available at this time, per lab this is sent out test and result will take longer. Trileptal continue to hold. No seizure episode.
[2018-08-06 20:20] VITALS: BP 127/77
[2018-08-06] MEDS: ASCORBIC ACID 500 MG TABLET GT SCH (20:35)
[2018-08-07] MEDS: ALBUTEROL FS 2.5 MG/3 ML VIAL.NEB NEB SCH ×4 (01:31→19:39)
[2018-08-07] MEDS: GABAPENTIN 300 MG CAPSULE GT SCH ×3 (05:13→20:54)
[2018-08-07] MEDS: DEXILANT 30 MG GT SCH (05:13)
[2018-08-07] MEDS: INSULIN REGULAR, HUMAN 100 UNIT/ML 3 ML VIAL SQ PRN ×2 (06:25→18:05)
[2018-08-07] MEDS: BLOOD SUGAR DIAGNOSTIC 1 EACH STRIP IN SCH ×2 (06:25→18:05)
[2018-08-07 07:52] VITALS: BP 112/65
[2018-08-07] MEDS: SIMETHICONE SUSP 40 MG/0.6 ML BOTTLE GT SCH ×2 (08:00→20:54)
[2018-08-07] MEDS: TRIAMCINOLONE ACETONIDE 0.1% CR 15 GM TUBE TP SCH ×4 (09:00→20:54)
[2018-08-07] MEDS: HYDROGEN PEROXIDE 480 ML BOTTLE TP SCH ×2 (09:00→20:54)
[2018-08-07] MEDS: [UNRECOGNIZED DRUG - OTHER] TP SCH ×2 (09:00→20:54)
[2018-08-07] MEDS: Z GUARD REMEDY 4 OZ OINT TP SCH ×4 (09:00→20:55)
[2018-08-07] MEDS: VIT A TP SCH ×2 (09:00→20:54)
[2018-08-07] MEDS: DOCUSATE SODIUM LIQ 100 MG/10 ML UDC GT SCH (09:19)
[2018-08-07] MEDS: FERROUS SULFATE - FOR SA ONLY 330 MG/7.5 ML UDC GT SCH ×2 (09:19→16:55)
[2018-08-07] MEDS: PROSOURCE DIETARY LIQUID 30 ML LIQUID GT SCH ×2 (09:21→16:55)
[2018-08-07] MEDS: ACIDOPHILUS/BULGARICUS 1 EACH TAB.CHEW GT SCH ×2 (09:21→16:55)
[2018-08-07] MEDS: LEVETIRACETAM SOL (5 ML) 100 MG/ML UDC GT SCH ×2 (09:21→20:54)
[2018-08-07] MEDS: CALCIUM CARBONATE 500 MG TAB.CHEW GT SCH ×2 (09:22→16:56)
[2018-08-07] MEDS: MULTIVIT W/MINERALS 1 TAB TABLET GT SCH (09:35)
[2018-08-07] MEDS: GLUCERNA 1.2 1,000 ML BOTTLE GT PRN (12:43)
[2018-08-07 20:51] VITALS: BP 122/65
[2018-08-07] MEDS: ASCORBIC ACID 500 MG TABLET GT SCH (20:54)
--- NOTE | 2018-08-07 23:13 | NUR ---
PATIENT RECEIVED ON MECHANICAL VENTILATION SUPPORT WITH SETTINGS OF CPAP 5, PS 25, 30%, TOLERATING WITH NO DISTRESS. SUCTIONED WITH LAVAGE FOR MINIMAL, THICK, YELLOW-CREAM SECRETIONS. GIVEN IN-LINE TREATMENTS WITH NO ADVERSE REACTIONS. AMBU BAG AT BEDSIDE. VENT ALARM AUDIBLE AND VISIBLE. VENT PLUGGED INTO RED OUTLET. TRACH CORNELIA CHANGED. Addendum: 08/07/18 at 2315 by SRAA MOLINA RT Amended: Links added.
[2018-08-08] MEDS: ALBUTEROL FS 2.5 MG/3 ML VIAL.NEB NEB SCH ×4 (01:25→19:29)
[2018-08-08] MEDS: DEXILANT 30 MG GT SCH (05:25)
[2018-08-08] MEDS: GABAPENTIN 300 MG CAPSULE GT SCH ×3 (05:25→20:21)
[2018-08-08] MEDS: BLOOD SUGAR DIAGNOSTIC 1 EACH STRIP IN SCH ×2 (06:20→18:01)
[2018-08-08] MEDS: INSULIN REGULAR, HUMAN 100 UNIT/ML 3 ML VIAL SQ PRN ×2 (06:28→18:01)
[2018-08-08 07:34] VITALS: BP 114/66
[2018-08-08] MEDS: SIMETHICONE SUSP 40 MG/0.6 ML BOTTLE GT SCH ×2 (08:39→20:19)
[2018-08-08] MEDS: FERROUS SULFATE - FOR SA ONLY 330 MG/7.5 ML UDC GT SCH ×2 (08:41→16:59)
[2018-08-08] MEDS: DOCUSATE SODIUM LIQ 100 MG/10 ML UDC GT SCH (08:41)
[2018-08-08] MEDS: LEVETIRACETAM SOL (5 ML) 100 MG/ML UDC GT SCH ×2 (08:41→20:19)
[2018-08-08] MEDS: ACIDOPHILUS/BULGARICUS 1 EACH TAB.CHEW GT SCH ×2 (08:41→16:59)
[2018-08-08] MEDS: PROSOURCE DIETARY LIQUID 30 ML LIQUID GT SCH ×2 (08:42→16:59)
[2018-08-08] MEDS: MULTIVIT W/MINERALS 1 TAB TABLET GT SCH (08:42)
[2018-08-08] MEDS: CALCIUM CARBONATE 500 MG TAB.CHEW GT SCH ×2 (08:42→16:59)
[2018-08-08] MEDS: [UNRECOGNIZED DRUG - OTHER] TP SCH ×2 (09:00→20:22)
[2018-08-08] MEDS: TRIAMCINOLONE ACETONIDE 0.1% CR 15 GM TUBE TP SCH ×2 (09:00)
[2018-08-08] MEDS: VIT A TP SCH ×2 (09:00→20:22)
[2018-08-08] MEDS ORDERED: TUBERCULIN,PURIF.PROT.DERIV. 5 TU/0.1 ML VIAL ID SCH (09:00)
[2018-08-08] MEDS: HYDROGEN PEROXIDE 480 ML BOTTLE TP SCH ×2 (09:00→20:22)
[2018-08-08] MEDS: Z GUARD REMEDY 4 OZ OINT TP SCH ×4 (09:00→20:23)
--- NOTE | 2018-08-08 10:11 | NUR ---
Notified Dr. Luis that Trileptal level still pending, he said to continue to hold medication until result is available.
[2018-08-08] MEDS: GLUCERNA 1.2 1,000 ML BOTTLE GT PRN (11:20)
[2018-08-08] MEDS: MAGNESIUM HYDROXIDE 30 ML UDC GT PRN (16:00)
[2018-08-08 19:58] VITALS: BP 126/85
[2018-08-08] MEDS: ASCORBIC ACID 500 MG TABLET GT SCH (20:22)
[2018-08-09] MEDS: ALBUTEROL FS 2.5 MG/3 ML VIAL.NEB NEB SCH ×4 (01:38→20:16)
[2018-08-09] MEDS: GLUCERNA 1.2 1,000 ML BOTTLE GT PRN (04:03)
[2018-08-09] MEDS: GABAPENTIN 300 MG CAPSULE GT SCH ×3 (05:21→20:27)
[2018-08-09] MEDS: INSULIN REGULAR, HUMAN 100 UNIT/ML 3 ML VIAL SQ PRN ×2 (05:22→18:31)
[2018-08-09] MEDS: BLOOD SUGAR DIAGNOSTIC 1 EACH STRIP IN SCH ×2 (05:22→18:31)
[2018-08-09] MEDS: DEXILANT 30 MG GT SCH (05:22)
[2018-08-09 07:50] VITALS: BP 148/78
[2018-08-09] MEDS: SIMETHICONE SUSP 40 MG/0.6 ML BOTTLE GT SCH ×2 (08:20→20:24)
[2018-08-09] MEDS: DOCUSATE SODIUM LIQ 100 MG/10 ML UDC GT SCH (08:20)
[2018-08-09] MEDS: ACIDOPHILUS/BULGARICUS 1 EACH TAB.CHEW GT SCH ×2 (08:20→16:12)
[2018-08-09] MEDS: LEVETIRACETAM SOL (5 ML) 100 MG/ML UDC GT SCH ×2 (08:20→20:25)
[2018-08-09] MEDS: PROSOURCE DIETARY LIQUID 30 ML LIQUID GT SCH ×2 (08:20→16:12)
[2018-08-09] MEDS: CALCIUM CARBONATE 500 MG TAB.CHEW GT SCH ×2 (08:20→16:12)
[2018-08-09] MEDS: FERROUS SULFATE - FOR SA ONLY 330 MG/7.5 ML UDC GT SCH ×2 (08:20→16:12)
[2018-08-09] MEDS: MULTIVIT W/MINERALS 1 TAB TABLET GT SCH (08:22)
[2018-08-09] MEDS: HYDROGEN PEROXIDE 480 ML BOTTLE TP SCH ×2 (09:00→20:28)
[2018-08-09] MEDS: [UNRECOGNIZED DRUG - OTHER] TP SCH ×2 (09:00→20:28)
[2018-08-09] MEDS: VIT A TP SCH ×2 (09:00→20:28)
[2018-08-09] MEDS: Z GUARD REMEDY 4 OZ OINT TP SCH ×4 (09:00→20:28)
[2018-08-09] MEDS: ASCORBIC ACID 500 MG TABLET GT SCH (20:28)
[2018-08-09 20:55] VITALS: BP 150/66
[2018-08-10] MEDS: ALBUTEROL FS 2.5 MG/3 ML VIAL.NEB NEB SCH ×4 (02:05→19:28)
[2018-08-10] MEDS: GLUCERNA 1.2 1,000 ML BOTTLE GT PRN ×2 (05:20→22:44)
[2018-08-10] MEDS: GABAPENTIN 300 MG CAPSULE GT SCH ×3 (05:20→20:24)
[2018-08-10] MEDS: BLOOD SUGAR DIAGNOSTIC 1 EACH STRIP IN SCH ×2 (05:21→18:24)
[2018-08-10] MEDS: DEXILANT 30 MG GT SCH (05:21)
[2018-08-10] MEDS: INSULIN REGULAR, HUMAN 100 UNIT/ML 3 ML VIAL SQ PRN ×2 (05:21→18:24)
--- NOTE | 2018-08-10 07:16 | NUR ---
Received female fariha pt on a mechanical vent. Pt fariha is secure. Vent is plugged into a red outlet, alarms are set and audible, and BMV is at bedside. Addendum: 08/10/18 at 0716 by MARKIE PINO RT Amended: Links added.
[2018-08-10 07:32] VITALS: BP 120/69
[2018-08-10] MEDS: SIMETHICONE SUSP 40 MG/0.6 ML BOTTLE GT SCH ×2 (08:48→20:24)
[2018-08-10] MEDS: FERROUS SULFATE - FOR SA ONLY 330 MG/7.5 ML UDC GT SCH ×2 (08:50→17:13)
[2018-08-10] MEDS: MULTIVIT W/MINERALS 1 TAB TABLET GT SCH (08:50)
[2018-08-10] MEDS: CALCIUM CARBONATE 500 MG TAB.CHEW GT SCH ×2 (08:50→17:13)
[2018-08-10] MEDS: DOCUSATE SODIUM LIQ 100 MG/10 ML UDC GT SCH (08:50)
[2018-08-10] MEDS: PROSOURCE DIETARY LIQUID 30 ML LIQUID GT SCH ×2 (08:50→17:13)
[2018-08-10] MEDS: LEVETIRACETAM SOL (5 ML) 100 MG/ML UDC GT SCH ×2 (08:50→20:24)
[2018-08-10] MEDS: ACIDOPHILUS/BULGARICUS 1 EACH TAB.CHEW GT SCH ×2 (08:50→17:13)
[2018-08-10] MEDS: HYDROGEN PEROXIDE 480 ML BOTTLE TP SCH ×2 (09:00→20:28)
[2018-08-10] MEDS: VIT A TP SCH ×2 (09:00→20:28)
[2018-08-10] MEDS: Z GUARD REMEDY 4 OZ OINT TP SCH ×4 (09:00→20:29)
[2018-08-10] MEDS: [UNRECOGNIZED DRUG - OTHER] TP SCH ×2 (09:00→20:28)
--- NOTE | 2018-08-10 15:40 | NUR ---
Dr Felix ordered to decrease PSV to 20 tomorrow.
--- NOTE | 2018-08-10 18:55 | NUR ---
Seen by Dr Luis. Relayed Trileptal level 31 to him. He ordered to give Trileptal 500 mg GT q 12. Notified pt's sister.
[2018-08-10 19:49] VITALS: BP 127/78
[2018-08-10] MEDS: TRILEPTAL GT SCH (20:28)
[2018-08-10] MEDS: ASCORBIC ACID 500 MG TABLET GT SCH (20:28)
[2018-08-10] MEDS ORDERED: OXCARBAZEPINE 150 MG TABLET GT SCH (21:00)
[2018-08-11] MEDS: ALBUTEROL FS 2.5 MG/3 ML VIAL.NEB NEB SCH ×4 (00:33→19:35)
--- NOTE | 2018-08-11 05:09 | NUR ---
PT REC'D TRACHED ON [facility] VENT ON CPAP MODE. NO RESP DISTRESS OR SOB NOTED. TRACH PATENT AND SECURED. SX'D FOR THICK MOD AMT OF PALE YELLOW SECRETIONS. ALARMS ARE SET AND AUDIBLE. VENT PLUGGED INTO RED OUTLET. AMBU BAG BEDSIDE. WILL CONTINUE TO MONITOR. Addendum: 08/11/18 at 0509 by LADAN WICK RT Amended: Links added.
[2018-08-11] MEDS: GABAPENTIN 300 MG CAPSULE GT SCH ×3 (05:36→20:33)
[2018-08-11] MEDS: BLOOD SUGAR DIAGNOSTIC 1 EACH STRIP IN SCH ×2 (05:36→17:39)
[2018-08-11] MEDS: DEXILANT 30 MG GT SCH (05:36)
[2018-08-11] MEDS: INSULIN REGULAR, HUMAN 100 UNIT/ML 3 ML VIAL SQ PRN ×2 (05:37→17:45)
[2018-08-11] MEDS: SIMETHICONE SUSP 40 MG/0.6 ML BOTTLE GT SCH ×2 (08:00→20:33)
[2018-08-11] MEDS: LEVETIRACETAM SOL (5 ML) 100 MG/ML UDC GT SCH ×2 (09:00→20:33)
[2018-08-11] MEDS: Z GUARD REMEDY 4 OZ OINT TP SCH ×4 (09:00→20:34)
[2018-08-11] MEDS: TRILEPTAL GT SCH ×2 (09:00→20:33)
[2018-08-11] MEDS: [UNRECOGNIZED DRUG - OTHER] TP SCH ×2 (09:00→20:33)
[2018-08-11] MEDS: PROSOURCE DIETARY LIQUID 30 ML LIQUID GT SCH ×2 (09:00→17:39)
[2018-08-11] MEDS: FERROUS SULFATE - FOR SA ONLY 330 MG/7.5 ML UDC GT SCH ×2 (09:00→17:39)
[2018-08-11] MEDS: HYDROGEN PEROXIDE 480 ML BOTTLE TP SCH ×2 (09:00→20:33)
[2018-08-11] MEDS: VIT A TP SCH ×2 (09:00→20:33)
[2018-08-11] MEDS: MULTIVIT W/MINERALS 1 TAB TABLET GT SCH (09:00)
[2018-08-11] MEDS: ACIDOPHILUS/BULGARICUS 1 EACH TAB.CHEW GT SCH ×2 (09:00→17:39)
[2018-08-11] MEDS: DOCUSATE SODIUM LIQ 100 MG/10 ML UDC GT SCH (09:00)
[2018-08-11] MEDS: CALCIUM CARBONATE 500 MG TAB.CHEW GT SCH ×2 (09:00→17:39)
--- NOTE | 2018-08-11 09:56 | NUR ---
RT RECD PT TRACHED INTACT AND SECURED ON MECH VENT CHANGED TO CPAP PS 20 APRIL WELL. ALARMS ON AND AUDIBLE BAG AND MASK AT HOB TXS GIVEN APRIL WELL NO ADVERSE REACTION NOTED ATT NO RESP DISTRESS THROUGHOUT SHIFT WILL CONT TO MONITOR
[2018-08-11 10:15] VITALS: BP 132/88
[2018-08-11] MEDS: GLUCERNA 1.2 1,000 ML BOTTLE GT PRN (17:39)
--- NOTE | 2018-08-11 19:35 | NUR ---
RT NOTE: RECEIVED TRACH PT ON [facility] VENT ON NOTED SETTINGS PER MD ORDERS. TRACH IS PATENT AND SECURED. TOOLROOM KEEPER DONE. Q6 BREATHING TX GIVEN WITH NO ADVERSE REACTION NOTED. SX DONE PRN. VENT PLUGGED INTO RED OUTLET. ALARMS ON AND AUDIBLE. NEVA BAG @ BEDSIDE. NO RESP DISTRESS AT THIS TIME. WILL CONT TO MONITOR PT. Addendum: 08/12/18 at 0237 by QIANA MARY RT Amended: Links added.
[2018-08-11] MEDS: ASCORBIC ACID 500 MG TABLET GT SCH (20:33)
[2018-08-11 20:50] VITALS: BP 140/70
[2018-08-12] MEDS: ALBUTEROL FS 2.5 MG/3 ML VIAL.NEB NEB SCH ×4 (01:37→19:32)
[2018-08-12] MEDS: GABAPENTIN 300 MG CAPSULE GT SCH ×3 (05:39→20:30)
[2018-08-12] MEDS: DEXILANT 30 MG GT SCH (05:39)
[2018-08-12] MEDS: BLOOD SUGAR DIAGNOSTIC 1 EACH STRIP IN SCH ×2 (05:40→17:41)
[2018-08-12] MEDS: INSULIN REGULAR, HUMAN 100 UNIT/ML 3 ML VIAL SQ PRN ×2 (05:40→17:42)
[2018-08-12 08:04] VITALS: BP 96/77
[2018-08-12] MEDS: SIMETHICONE SUSP 40 MG/0.6 ML BOTTLE GT SCH ×2 (08:54→20:30)
[2018-08-12] MEDS: DOCUSATE SODIUM LIQ 100 MG/10 ML UDC GT SCH (08:54)
[2018-08-12] MEDS: FERROUS SULFATE - FOR SA ONLY 330 MG/7.5 ML UDC GT SCH ×2 (08:54→17:15)
[2018-08-12] MEDS: ACIDOPHILUS/BULGARICUS 1 EACH TAB.CHEW GT SCH ×2 (08:55→17:15)
[2018-08-12] MEDS: LEVETIRACETAM SOL (5 ML) 100 MG/ML UDC GT SCH ×2 (08:55→20:30)
[2018-08-12] MEDS: CALCIUM CARBONATE 500 MG TAB.CHEW GT SCH ×2 (08:58→17:15)
[2018-08-12] MEDS: MULTIVIT W/MINERALS 1 TAB TABLET GT SCH (08:58)
[2018-08-12] MEDS: PROSOURCE DIETARY LIQUID 30 ML LIQUID GT SCH ×2 (08:58→17:15)
[2018-08-12] MEDS: TRILEPTAL GT SCH ×2 (08:58→20:30)
[2018-08-12] MEDS: VIT A TP SCH ×2 (09:00→20:30)
[2018-08-12] MEDS: [UNRECOGNIZED DRUG - OTHER] TP SCH ×2 (09:00→20:30)
[2018-08-12] MEDS: Z GUARD REMEDY 4 OZ OINT TP SCH ×4 (09:00→20:31)
[2018-08-12] MEDS: HYDROGEN PEROXIDE 480 ML BOTTLE TP SCH ×2 (09:00→20:30)
--- NOTE | 2018-08-12 16:23 | NUR ---
RT NOTE: PATIENT RECEIVED TRACHED ON MECHANICAL VENT. ALARMS VERIFIED AND AUDIBLE. VENT PLUGGED INTO RED OUTLET. AMBU BAG AND NEW TRACH AT [facility].
[2018-08-12] MEDS: GLUCERNA 1.2 1,000 ML BOTTLE GT PRN (17:26)
[2018-08-12 20:27] VITALS: BP 133/76
[2018-08-12] MEDS: ASCORBIC ACID 500 MG TABLET GT SCH (20:30)
--- NOTE | 2018-08-12 21:02 | NUR ---
RT NOTE PATIENT WAS RECEIVED ON CONTINUOUS VENT SUPPORT ON NOTED VENT SETTINGS. HHN INLINE TREATMENT WAS GIVEN, NO ADVERSE REACTION NOTED ,PRN SUCTION WAS DONE. TRACH TUBE PATENT AND SECURED. ALARMS ON AND AUDIBLE. GRAYSON AND CAITLYN LAMBERT AT [facility]. WILL CONTINUE TO MONITOR PATIENT Addendum: 08/12/18 at 2102 by DIEGO BRAYD RT Amended: Links added.
[2018-08-13] MEDS: ALBUTEROL FS 2.5 MG/3 ML VIAL.NEB NEB SCH ×4 (01:38→19:28)
[2018-08-13] MEDS: GABAPENTIN 300 MG CAPSULE GT SCH ×3 (05:15→20:15)
[2018-08-13] MEDS: DEXILANT 30 MG GT SCH (05:15)
[2018-08-13] MEDS: MAGNESIUM HYDROXIDE 30 ML UDC GT PRN (05:15)
[2018-08-13] MEDS: BLOOD SUGAR DIAGNOSTIC 1 EACH STRIP IN SCH ×2 (06:03→17:25)
[2018-08-13] MEDS: INSULIN REGULAR, HUMAN 100 UNIT/ML 3 ML VIAL SQ PRN ×2 (06:03→17:26)
--- NOTE | 2018-08-13 07:32 | NUR ---
Trach pt received on a mechanical vent. Pt trach is secure. Vent is plugged into a red outlet, alarms are set and audible, and BMV is at bedside. Addendum: 08/13/18 at 0733 by MARKIE PINO RT Amended: Links added.
[2018-08-13] MEDS: SIMETHICONE SUSP 40 MG/0.6 ML BOTTLE GT SCH ×2 (08:00→20:15)
[2018-08-13] MEDS: TRILEPTAL GT SCH ×2 (09:38→20:17)
[2018-08-13] MEDS: LEVETIRACETAM SOL (5 ML) 100 MG/ML UDC GT SCH ×2 (09:38→20:15)
[2018-08-13] MEDS: FERROUS SULFATE - FOR SA ONLY 330 MG/7.5 ML UDC GT SCH ×2 (09:38→17:05)
[2018-08-13] MEDS: PROSOURCE DIETARY LIQUID 30 ML LIQUID GT SCH ×2 (09:38→17:05)
[2018-08-13] MEDS: DOCUSATE SODIUM LIQ 100 MG/10 ML UDC GT SCH (09:38)
[2018-08-13] MEDS: ACIDOPHILUS/BULGARICUS 1 EACH TAB.CHEW GT SCH ×2 (09:38→17:05)
[2018-08-13] MEDS: HYDROGEN PEROXIDE 480 ML BOTTLE TP SCH ×2 (09:39→20:19)
[2018-08-13] MEDS: [UNRECOGNIZED DRUG - OTHER] TP SCH ×2 (09:39→20:18)
[2018-08-13] MEDS: CALCIUM CARBONATE 500 MG TAB.CHEW GT SCH ×2 (09:39→17:05)
[2018-08-13] MEDS: Z GUARD REMEDY 4 OZ OINT TP SCH ×4 (09:39→20:19)
[2018-08-13] MEDS: VIT A TP SCH ×2 (09:39→20:18)
[2018-08-13] MEDS: MULTIVIT W/MINERALS 1 TAB TABLET GT SCH (09:39)
--- NOTE | 2018-08-13 10:08 | NUR ---
Notified Beckie, sister that has 2 scratch escalante in the R posterior upper arm 2 cm. in length. SALVAGER HELPER said that they noticed after removing patient's gown. Resident has long fingernails and able to move her L arm and possibly reach to her R arm. notified with order to topical ATB. Order carried out.
[2018-08-13 11:01] VITALS: BP 113/68
[2018-08-13] MEDS: BACI/NEOM/POLY B OINT PKT 1 UDPKT PACKET TP SCH ×2 (12:24→20:19)
[2018-08-13] MEDS: GLUCERNA 1.2 1,000 ML BOTTLE GT PRN (16:00)
[2018-08-13 19:41] VITALS: BP 117/76
[2018-08-13] MEDS: ASCORBIC ACID 500 MG TABLET GT SCH (20:18)
--- NOTE | 2018-08-13 20:43 | NUR ---
PATIENT RECEIVED ON MECHANICAL VENTILATION. VENT PLUGGED INTO RED OUTLET. CUFF CHECKED VIA TELEPHONE MAINTENANCE MECHANIC. ALARMS ON AND AUDIBLE. TX GIVEN, NO ADVERSE REACTIONS NOTED. NO DISTRESS NOTED. SX DONE, SMALL THICK WHITE SECRETIONS NOTED. PATIENT STABLE. Addendum: 08/13/18 at 2043 by BRIEN NEAL RT Amended: Links added.
[2018-08-14] MEDS: ALBUTEROL FS 2.5 MG/3 ML VIAL.NEB NEB SCH ×4 (01:40→19:19)
[2018-08-14] MEDS: GABAPENTIN 300 MG CAPSULE GT SCH ×3 (05:19→20:57)
[2018-08-14] MEDS: DEXILANT 30 MG GT SCH (05:21)
[2018-08-14] MEDS: BLOOD SUGAR DIAGNOSTIC 1 EACH STRIP IN SCH ×2 (05:21→18:10)
[2018-08-14] MEDS: INSULIN REGULAR, HUMAN 100 UNIT/ML 3 ML VIAL SQ PRN ×2 (05:22→18:11)
[2018-08-14] MEDS: BISACODYL SUPP (10 MG) 10 MG/SUPP.RECT SUPP.RECT RC PRN (06:19)
[2018-08-14 07:31] VITALS: BP 123/71
[2018-08-14] MEDS: SIMETHICONE SUSP 40 MG/0.6 ML BOTTLE GT SCH ×2 (08:00→20:47)
[2018-08-14] MEDS: VIT A TP SCH ×2 (09:38→21:02)
[2018-08-14] MEDS: CALCIUM CARBONATE 500 MG TAB.CHEW GT SCH ×2 (09:38→17:17)
[2018-08-14] MEDS: LEVETIRACETAM SOL (5 ML) 100 MG/ML UDC GT SCH ×2 (09:38→20:54)
[2018-08-14] MEDS: TRILEPTAL GT SCH ×2 (09:38→21:01)
[2018-08-14] MEDS: HYDROGEN PEROXIDE 480 ML BOTTLE TP SCH ×2 (09:38→21:02)
[2018-08-14] MEDS: ACIDOPHILUS/BULGARICUS 1 EACH TAB.CHEW GT SCH ×2 (09:38→17:17)
[2018-08-14] MEDS: DOCUSATE SODIUM LIQ 100 MG/10 ML UDC GT SCH (09:38)
[2018-08-14] MEDS: PROSOURCE DIETARY LIQUID 30 ML LIQUID GT SCH ×2 (09:38→17:17)
[2018-08-14] MEDS: FERROUS SULFATE - FOR SA ONLY 330 MG/7.5 ML UDC GT SCH ×2 (09:38→17:17)
[2018-08-14] MEDS: MULTIVIT W/MINERALS 1 TAB TABLET GT SCH (09:38)
[2018-08-14] MEDS: [UNRECOGNIZED DRUG - OTHER] TP SCH ×2 (09:38→21:02)
[2018-08-14] MEDS: BACI/NEOM/POLY B OINT PKT 1 UDPKT PACKET TP SCH ×2 (09:39→21:02)
[2018-08-14] MEDS: Z GUARD REMEDY 4 OZ OINT TP SCH ×4 (09:39→21:03)
[2018-08-14] MEDS: GLUCERNA 1.2 1,000 ML BOTTLE GT PRN (13:30)
[2018-08-14 19:55] VITALS: BP 130/78
--- NOTE | 2018-08-14 20:51 | NUR ---
RT NOTE PATIENT WAS RECEIVED ON CONTINUOUS VENT SUPPORT ON NOTED VENT SETTINGS. HHN INLINE TREATMENT WAS GIVEN, NO ADVERSE REACTION NOTED ,PRN SUCTION WAS DONE. TRACH TUBE PATENT AND SECURED. ALARMS ON AND AUDIBLE. GRAYSON AND CAITLYN LAMBERT AT [facility]. WILL CONTINUE TO MONITOR PATIENT Addendum: 08/14/18 at 2050 by DIEGO BRADY RT Amended: Links added.
[2018-08-14] MEDS: ASCORBIC ACID 500 MG TABLET GT SCH (21:02)
[2018-08-15] MEDS: ALBUTEROL FS 2.5 MG/3 ML VIAL.NEB NEB SCH ×4 (01:21→19:27)
[2018-08-15] MEDS: DEXILANT 30 MG GT SCH (05:07)
[2018-08-15] MEDS: GABAPENTIN 300 MG CAPSULE GT SCH ×3 (05:07→20:23)
--- NOTE | 2018-08-15 06:10 | NUR ---
RN NOTES 0600 BG ACCUCHECK 139. NO INSULIN COVERAGE NEEDED AT THIS TIME PER SLIDING SCALE.
[2018-08-15] MEDS: BLOOD SUGAR DIAGNOSTIC 1 EACH STRIP IN SCH ×2 (06:14→17:56)
[2018-08-15] MEDS: GLUCERNA 1.2 1,000 ML BOTTLE GT PRN (06:35)
[2018-08-15 07:39] VITALS: BP 125/75
[2018-08-15] MEDS: SIMETHICONE SUSP 40 MG/0.6 ML BOTTLE GT SCH ×2 (08:00→20:22)
[2018-08-15] MEDS: LEVETIRACETAM SOL (5 ML) 100 MG/ML UDC GT SCH ×2 (09:25→20:23)
[2018-08-15] MEDS: TRILEPTAL GT SCH ×2 (09:25→20:24)
[2018-08-15] MEDS: DOCUSATE SODIUM LIQ 100 MG/10 ML UDC GT SCH (09:25)
[2018-08-15] MEDS: PROSOURCE DIETARY LIQUID 30 ML LIQUID GT SCH ×2 (09:25→17:06)
[2018-08-15] MEDS: ACIDOPHILUS/BULGARICUS 1 EACH TAB.CHEW GT SCH ×2 (09:25→17:06)
[2018-08-15] MEDS: FERROUS SULFATE - FOR SA ONLY 330 MG/7.5 ML UDC GT SCH ×2 (09:25→17:06)
[2018-08-15] MEDS: BACI/NEOM/POLY B OINT PKT 1 UDPKT PACKET TP SCH ×2 (09:26→20:24)
[2018-08-15] MEDS: [UNRECOGNIZED DRUG - OTHER] TP SCH ×2 (09:26→20:24)
[2018-08-15] MEDS: HYDROGEN PEROXIDE 480 ML BOTTLE TP SCH ×2 (09:26→20:24)
[2018-08-15] MEDS: CALCIUM CARBONATE 500 MG TAB.CHEW GT SCH ×2 (09:26→17:06)
[2018-08-15] MEDS: Z GUARD REMEDY 4 OZ OINT TP SCH ×4 (09:26→20:25)
[2018-08-15] MEDS: MULTIVIT W/MINERALS 1 TAB TABLET GT SCH (09:26)
[2018-08-15] MEDS: VIT A TP SCH ×2 (09:26→20:24)
[2018-08-15] MEDS: INSULIN REGULAR, HUMAN 100 UNIT/ML 3 ML VIAL SQ PRN (17:57)
--- NOTE | 2018-08-15 19:28 | NUR ---
RT NOTE: RECEIVED TRACH PT ON [facility] VENT ON NOTED SETTINGS PER MD ORDERS. TRACH IS PATENT AND SECURED. ORACLE BRM DEVELOPER DONE. Q6 BREATHING TX GIVEN WITH NO ADVERSE REACTION NOTED. SX DONE PRN. VENT PLUGGED INTO RED OUTLET. ALARMS ON AND AUDIBLE. NVEA BAG @ BEDSIDE. NO RESP DISTRESS AT THIS TIME. WILL CONT TO MONITOR PT. Addendum: 08/16/18 at 0401 by QIANA MARY RT Amended: Links added.
[2018-08-15] MEDS: ASCORBIC ACID 500 MG TABLET GT SCH (20:24)
[2018-08-15 20:35] VITALS: BP 109/55
[2018-08-16] MEDS: ALBUTEROL FS 2.5 MG/3 ML VIAL.NEB NEB SCH ×4 (01:28→19:46)
[2018-08-16] MEDS: GABAPENTIN 300 MG CAPSULE GT SCH ×3 (05:29→20:17)
[2018-08-16] MEDS: GLUCERNA 1.2 1,000 ML BOTTLE GT PRN (05:30)
[2018-08-16] MEDS: INSULIN REGULAR, HUMAN 100 UNIT/ML 3 ML VIAL SQ PRN ×2 (05:30→17:52)
[2018-08-16] MEDS: DEXILANT 30 MG GT SCH (05:30)
[2018-08-16] MEDS: BLOOD SUGAR DIAGNOSTIC 1 EACH STRIP IN SCH ×2 (05:30→17:52)
[2018-08-16] MEDS: SIMETHICONE SUSP 40 MG/0.6 ML BOTTLE GT SCH ×2 (08:57→20:17)
[2018-08-16] MEDS: MULTIVIT W/MINERALS 1 TAB TABLET GT SCH (09:03)
[2018-08-16] MEDS: CALCIUM CARBONATE 500 MG TAB.CHEW GT SCH ×2 (09:03→17:52)
[2018-08-16] MEDS: DOCUSATE SODIUM LIQ 100 MG/10 ML UDC GT SCH (09:03)
[2018-08-16] MEDS: FERROUS SULFATE - FOR SA ONLY 330 MG/7.5 ML UDC GT SCH ×2 (09:03→17:52)
[2018-08-16] MEDS: [UNRECOGNIZED DRUG - OTHER] TP SCH ×2 (09:03→20:20)
[2018-08-16] MEDS: LEVETIRACETAM SOL (5 ML) 100 MG/ML UDC GT SCH ×2 (09:03→20:17)
[2018-08-16] MEDS: VIT A TP SCH ×2 (09:03→20:20)
[2018-08-16] MEDS: BACI/NEOM/POLY B OINT PKT 1 UDPKT PACKET TP SCH ×2 (09:03→20:20)
[2018-08-16] MEDS: HYDROGEN PEROXIDE 480 ML BOTTLE TP SCH ×2 (09:03→20:20)
[2018-08-16] MEDS: PROSOURCE DIETARY LIQUID 30 ML LIQUID GT SCH ×2 (09:03→17:52)
[2018-08-16] MEDS: Z GUARD REMEDY 4 OZ OINT TP SCH ×4 (09:03→20:20)
[2018-08-16] MEDS: ACIDOPHILUS/BULGARICUS 1 EACH TAB.CHEW GT SCH ×2 (09:03→17:52)
[2018-08-16] MEDS: TRILEPTAL GT SCH ×2 (09:03→20:19)
[2018-08-16 10:22] VITALS: BP 129/68
[2018-08-16] MEDS: LORAZEPAM 1 MG TABLET GT PRN (14:28)
[2018-08-16 18:53] LABS: CALCIUM, SERUM 9.5 mg/dL (8.5-10.1); CREATININE 2.2 mg/dL (0.6-1.3); POTASSIUM 4.2 mmol/L (3.5-5.1)
--- NOTE | 2018-08-16 20:00 | NUR ---
RN NOTES Received pt in bed awake and alert no seizure activity noted at this time. Will continue to monitor.
[2018-08-16] MEDS: ASCORBIC ACID 500 MG TABLET GT SCH (20:20)
[2018-08-16 20:43] VITALS: BP 127/70
[2018-08-16 22:12] LABS: APPEARANCE,URINE CLEAR (CLEAR); BILIRUBIN,URINE NEGATIVE (NEGATIVE); BLOOD, URINE 3+ Ery/uL (NEGATIVE); COLOR,URINE YELLOW (YELLOW); KETONES,URINE NEGATIVE (NEGATIVE); LEUKOCYTE ESTERASE ,URINE 3+ (NEGATIVE); NITRITE, URINE NEGATIVE (NEGATIVE); PH,URINE 7.5 (5.0-8.0); PROTEIN,URINE 3+ mg/dl (NEGATIVE); UGLUCOSE NEGATIVE (NEGATIVE); UROBILINOGEN,URINE 0.2 EU/dL (0.2)
[2018-08-16 22:17] LABS: RBC,URINE TOO NUMEROUS TO COUN /HPF (0-2)
[2018-08-16 22:18] LABS: BACTERIA,URINE 4+ /HPF (None Seen); SQUAMOUS EPITHELIAL CELL,UR Rare /HPF (None Seen); WBC,URINE 51-80 /HPF (0-3)
[2018-08-16 22:55] LABS: BASOPHILS # (AUTO) 0.1 /CMM (0.0-0.2); BASOPHILS % (AUTO) 0.4 % (0.0-2.0); EOSINOPHILS % (AUTO) 3.4 % (0.0-6.0); HEMATOCRIT 32 % (33-45); HEMOGLOBIN 10.2 g/dL (11.5-14.8); LYMPHOCYTES # (AUTO) 3.1 /CMM (0.8-4.8); LYMPHOCYTES % (AUTO) 19.6 % (20.0-44.0); MEAN CORPUSCULAR HGB CONC 32 g/dl (31.0-36.0); MEAN CORPUSCULAR VOLUME 103 fL (82-100); MONOCYTES # (AUTO) 1.4 /CMM (0.1-1.30); MONOCYTES % (AUTO) 8.8 % (2.0-12.0); NEUTROPHILS # (AUTO) 10.7 /CMM (1.8-8.9); NEUTROPHILS % (AUTO) 67.8 % (43.0-81.0); PLATELET COUNT (AUTO) 282 /CMM (150-450); RED BLOOD CELL COUNT(AUTO) 3.09 MIL/uL (4.0-5.2); WHITE BLOOD COUNT (AUTO) 15.7 K/uL (4.3-11.0)
--- NOTE | 2018-08-17 00:30 | NUR ---
RN NOTES Noted pt with difficulty breathing, tachypneic. B/P 132/72, HR 92, RR 33, T 98.3, O2sat 98%. Pt on CPAP mode as ordered. Moderate amount of secretions sectioned, with no relief noted. Pt appears to be uncomfortable showing signs of respiratory distress. Placed back on previous AC mode ordered. Pt tolerating vent settings. Pt able to rest. Will continue to monitor closely.
--- NOTE | 2018-08-17 00:30 | NUR ---
PT SHOWED SIGNS OF RESP DISTRESS AND UNCOMFORTNESS ON CPAP MODE. PT PLACED ON PREVIOUS AC MODE SETTINGS. WILL CONTINUE TO MONITOR CLOSELY. Addendum: 08/17/18 at 0037 by LADAN WICK RT Amended: Links added.
--- NOTE | 2018-08-17 01:30 | NUR ---
RN NOTES Pt resting comfortably. No respiratory distress, no SOB.
[2018-08-17] MEDS: GLUCERNA 1.2 1,000 ML BOTTLE GT PRN ×2 (01:32→19:11)
[2018-08-17] MEDS: ALBUTEROL FS 2.5 MG/3 ML VIAL.NEB NEB SCH ×4 (01:47→19:21)
--- NOTE | 2018-08-17 05:07 | NUR ---
PT REC'D TRACHED ON [facility] VENT ON CPAP MODE. PT THROUGHOUT SHIFT SHOWED SIGNS OF RESP DISTRESS. PT BECAME TACHYCARDIC, TACHYPNEIC, AND RESTLESS. PT PLACED BACK ON PREVIOUS AC MODE SETTINGS @ 0030. TRACH IS PATENT AND SECURED. SX'D FOR MOD AMT OF YELLOW SECRETIONS. ALARMS ARE SET AND AUDIBLE. VENT PLUGGED INTO RED OUTLET. AMBU BAG BEDSIDE. WILL CONTINUE TO MONITOR. Addendum: 08/17/18 at 0509 by LADAN WICK RT Amended: Links added.
[2018-08-17] MEDS: GABAPENTIN 300 MG CAPSULE GT SCH ×3 (05:32→20:28)
[2018-08-17] MEDS: DEXILANT 30 MG GT SCH (05:33)
[2018-08-17] MEDS: BLOOD SUGAR DIAGNOSTIC 1 EACH STRIP IN SCH ×2 (05:33→17:58)
[2018-08-17] MEDS: INSULIN REGULAR, HUMAN 100 UNIT/ML 3 ML VIAL SQ PRN ×2 (05:36→17:59)
--- NOTE | 2018-08-17 08:05 | NUR ---
Pt had a seizure episode lasting about 20 seconds. Ativan was given by BRIANNA Godwin. BP 110/62 HR 90 T 97.8 R 16.
[2018-08-17] MEDS: LORAZEPAM 1 MG TABLET GT PRN (08:07)
[2018-08-17] MEDS: TRILEPTAL GT SCH ×2 (08:41→20:28)
[2018-08-17] MEDS: FERROUS SULFATE - FOR SA ONLY 330 MG/7.5 ML UDC GT SCH ×2 (08:41→17:58)
[2018-08-17] MEDS: ACIDOPHILUS/BULGARICUS 1 EACH TAB.CHEW GT SCH ×2 (08:41→17:58)
[2018-08-17] MEDS: DOCUSATE SODIUM LIQ 100 MG/10 ML UDC GT SCH (08:41)
[2018-08-17] MEDS: SIMETHICONE SUSP 40 MG/0.6 ML BOTTLE GT SCH ×2 (08:41→20:26)
[2018-08-17] MEDS: LEVETIRACETAM SOL (5 ML) 100 MG/ML UDC GT SCH ×2 (08:41→20:28)
[2018-08-17] MEDS: PROSOURCE DIETARY LIQUID 30 ML LIQUID GT SCH ×2 (08:41→17:58)
[2018-08-17] MEDS: MULTIVIT W/MINERALS 1 TAB TABLET GT SCH (08:42)
[2018-08-17] MEDS: CALCIUM CARBONATE 500 MG TAB.CHEW GT SCH ×2 (08:42→17:58)
--- NOTE | 2018-08-17 08:55 | NUR ---
Notified Dr Luis of seizure episode this morning and increased WBC 15. He viewed pt's UA result and ordered to give Ceftriaxone 1 gm IV daily for 7 days. He said to give antibiotic once urine culture has been sent to lab. He also said that pt's antibiotic will be adjusted based on urine culture.
[2018-08-17] MEDS: [UNRECOGNIZED DRUG - OTHER] TP SCH ×2 (09:00→20:28)
[2018-08-17] MEDS: Z GUARD REMEDY 4 OZ OINT TP SCH ×4 (09:00→20:29)
[2018-08-17] MEDS: BACI/NEOM/POLY B OINT PKT 1 UDPKT PACKET TP SCH ×2 (09:00→20:29)
[2018-08-17] MEDS: HYDROGEN PEROXIDE 480 ML BOTTLE TP SCH ×2 (09:00→20:29)
[2018-08-17] MEDS: VIT A TP SCH ×2 (09:00→20:28)
--- NOTE | 2018-08-17 10:00 | NUR ---
Seen by Dr Felix. Informed him that pt had respiratory distress last night and was placed on AC mode. Also informed him that pt had a seizure yesterday and this morning, pt on Ceftriaxone for possible UTI.
[2018-08-17 11:31] VITALS: BP 104/59
[2018-08-17] MEDS: CEFTRIAXONE 1 G in IV D5W 50 ML IV SCH (12:00)
--- NOTE | 2018-08-17 13:27 | NUR ---
Notified pt's sister Beckie that pt had seizure episodes, labs were done, WBC 15, and Dr Luis ordered Ceftriaxone 1 gm IV daily for 7 days for UTI. Beckie appreciated call.
--- NOTE | 2018-08-17 13:31 | NUR ---
Late entry for 08/16/[address] Luis. Informed him that pt had a seizure episode lasting over a minute 10 minutes before he saw pt. Nurse Tiffany administered Ativan as ordered PRN. Dr Luis ordered UA CBC BMP Trileptal level.
[2018-08-17 20:18] VITALS: BP 120/63
[2018-08-17] MEDS: ASCORBIC ACID 500 MG TABLET GT SCH (20:28)
--- NOTE | 2018-08-17 20:42 | NUR ---
RN NOTES Received pt in bed awake and alert no seizure activity noted at this time. Will continue to monitor.
[2018-08-18] MEDS: ALBUTEROL FS 2.5 MG/3 ML VIAL.NEB NEB SCH ×4 (00:49→19:52)
[2018-08-18] MEDS: GABAPENTIN 300 MG CAPSULE GT SCH ×3 (05:24→20:19)
[2018-08-18] MEDS: DEXILANT 30 MG GT SCH (05:25)
[2018-08-18] MEDS: BLOOD SUGAR DIAGNOSTIC 1 EACH STRIP IN SCH ×2 (05:25→18:18)
[2018-08-18] MEDS: INSULIN REGULAR, HUMAN 100 UNIT/ML 3 ML VIAL SQ PRN ×2 (05:26→18:25)
[2018-08-18 07:45] VITALS: BP 127/66
[2018-08-18] MEDS: SIMETHICONE SUSP 40 MG/0.6 ML BOTTLE GT SCH ×2 (08:00→20:19)
[2018-08-18] MEDS: DOCUSATE SODIUM LIQ 100 MG/10 ML UDC GT SCH (09:00)
[2018-08-18] MEDS: LEVETIRACETAM SOL (5 ML) 100 MG/ML UDC GT SCH ×2 (09:00→20:19)
[2018-08-18] MEDS: [UNRECOGNIZED DRUG - OTHER] TP SCH ×2 (09:00→20:19)
[2018-08-18] MEDS: VIT A TP SCH ×2 (09:00→20:19)
[2018-08-18] MEDS: ACIDOPHILUS/BULGARICUS 1 EACH TAB.CHEW GT SCH ×2 (09:00→16:12)
[2018-08-18] MEDS: TRILEPTAL GT SCH ×2 (09:00→20:19)
[2018-08-18] MEDS: MULTIVIT W/MINERALS 1 TAB TABLET GT SCH (09:00)
[2018-08-18] MEDS: PROSOURCE DIETARY LIQUID 30 ML LIQUID GT SCH ×2 (09:00→16:12)
[2018-08-18] MEDS: HYDROGEN PEROXIDE 480 ML BOTTLE TP SCH ×2 (09:00→20:19)
[2018-08-18] MEDS: FERROUS SULFATE - FOR SA ONLY 330 MG/7.5 ML UDC GT SCH ×2 (09:00→16:12)
[2018-08-18] MEDS: Z GUARD REMEDY 4 OZ OINT TP SCH ×4 (09:00→20:20)
[2018-08-18] MEDS: BACI/NEOM/POLY B OINT PKT 1 UDPKT PACKET TP SCH ×2 (09:00→20:19)
[2018-08-18] MEDS: CALCIUM CARBONATE 500 MG TAB.CHEW GT SCH ×2 (09:00→16:12)
[2018-08-18] MEDS: CEFTRIAXONE 1 G in IV D5W 50 ML IV SCH (11:33)
[2018-08-18] MEDS: GLUCERNA 1.2 1,000 ML BOTTLE GT PRN (16:12)
--- NOTE | 2018-08-18 17:35 | NUR ---
RT Pt received trach'd and on [facility] vent w charted settings. Vent is plugged into red outlet w ambubag @ [employer]. Alarms are set and audible. Trach is secure and patent.. Hhn tx given and pt sx'd w no adverse reactions. No respiratory distress noted t/o shift. Will continue to monitor. Addendum: 08/18/18 at 1737 by JULIETH REY RT Amended: Links added.
--- NOTE | 2018-08-18 17:40 | NUR ---
Notified Dr. Montaño of preliminary urine culture result showing gram negative rods 10,000cfu and mixed contaminants. Resident afebrile at 98.1. Resident continue on IV Rocephin, no adverse reaction from ATB. No new order given at this time.
[2018-08-18 19:50] VITALS: BP 120/73
[2018-08-18] MEDS: ASCORBIC ACID 500 MG TABLET GT SCH (20:19)
--- NOTE | 2018-08-18 20:46 | NUR ---
PT RCVD TRACH'D ON MECHANICAL WITH CHARTED SETTINGS. TX GIVEN AND NO ADVERSE REACTION NOTED. SX DONE. PT TRACH PATENT AND SECURE. VENT PLUGGED INTO RED OUTLET. ALARMS ARE SET AND AUDIBLE. AMBU BAG AT BEDSIDE. WILL CONTINUE TO MONITOR. Addendum: 08/18/18 at 204 by MICH AVILA RT Amended: Links added.
[2018-08-19] MEDS: ALBUTEROL FS 2.5 MG/3 ML VIAL.NEB NEB SCH ×4 (00:44→19:34)
[2018-08-19] MEDS: DEXILANT 30 MG GT SCH (05:41)
[2018-08-19] MEDS: GABAPENTIN 300 MG CAPSULE GT SCH ×3 (05:41→20:46)
[2018-08-19] MEDS: INSULIN REGULAR, HUMAN 100 UNIT/ML 3 ML VIAL SQ PRN (06:46)
[2018-08-19] MEDS: BLOOD SUGAR DIAGNOSTIC 1 EACH STRIP IN SCH ×2 (06:46→17:56)
--- NOTE | 2018-08-19 07:08 | NUR ---
Pt remains stable,no seizures episode noted.Will continue to monitor.
--- NOTE | 2018-08-19 07:29 | NUR ---
Female trach pt on a mechanical vent. PT trach is secure. Vent is plugged into a red outlet, alarms are set and audible, and BMV is at bedside. Addendum: 08/19/18 at 0733 by MARKIE PINO RT Amended: Links added.
[2018-08-19 07:39] VITALS: BP 124/80
[2018-08-19] MEDS: CALCIUM CARBONATE 500 MG TAB.CHEW GT SCH ×2 (08:53→17:56)
[2018-08-19] MEDS: MULTIVIT W/MINERALS 1 TAB TABLET GT SCH (08:53)
[2018-08-19] MEDS: SIMETHICONE SUSP 40 MG/0.6 ML BOTTLE GT SCH ×2 (08:53→20:46)
[2018-08-19] MEDS: DOCUSATE SODIUM LIQ 100 MG/10 ML UDC GT SCH (08:53)
[2018-08-19] MEDS: TRILEPTAL GT SCH ×2 (08:53→20:46)
[2018-08-19] MEDS: PROSOURCE DIETARY LIQUID 30 ML LIQUID GT SCH ×2 (08:53→17:56)
[2018-08-19] MEDS: [UNRECOGNIZED DRUG - OTHER] TP SCH ×2 (08:53→20:46)
[2018-08-19] MEDS: HYDROGEN PEROXIDE 480 ML BOTTLE TP SCH ×2 (08:53→20:46)
[2018-08-19] MEDS: ACIDOPHILUS/BULGARICUS 1 EACH TAB.CHEW GT SCH ×2 (08:53→17:56)
[2018-08-19] MEDS: VIT A TP SCH ×2 (08:53→20:46)
[2018-08-19] MEDS: FERROUS SULFATE - FOR SA ONLY 330 MG/7.5 ML UDC GT SCH ×2 (08:53→17:56)
[2018-08-19] MEDS: LEVETIRACETAM SOL (5 ML) 100 MG/ML UDC GT SCH ×2 (08:53→20:46)
[2018-08-19] MEDS: BACI/NEOM/POLY B OINT PKT 1 UDPKT PACKET TP SCH ×2 (08:54→20:46)
[2018-08-19] MEDS: Z GUARD REMEDY 4 OZ OINT TP SCH ×4 (08:54→20:46)
[2018-08-19] MEDS: GLUCERNA 1.2 1,000 ML BOTTLE GT PRN (13:20)
[2018-08-19] MEDS: LEVOFLOXACIN (250MG) 250 MG TABLET GT SCH (13:30)
[2018-08-19] MEDS: MAGNESIUM HYDROXIDE 30 ML UDC GT PRN (17:56)
[2018-08-19 19:49] VITALS: BP 122/64
--- NOTE | 2018-08-19 20:36 | NUR ---
PT RCVD TRACH'D ON MECHANICAL WITH CHARTED SETTINGS. TX GIVEN AND NO ADVERSE REACTION NOTED. SX DONE. PT TRACH PATENT AND SECURE. VENT PLUGGED INTO RED OUTLET. ALARMS ARE SET AND AUDIBLE. AMBU BAG AT BEDSIDE. WILL CONTINUE TO MONITOR. Addendum: 08/19/18 at 2035 by MICH VAILA RT Amended: Links added.
[2018-08-19] MEDS: ASCORBIC ACID 500 MG TABLET GT SCH (20:46)
[2018-08-20] MEDS: ALBUTEROL FS 2.5 MG/3 ML VIAL.NEB NEB SCH ×4 (01:11→19:34)
[2018-08-20] MEDS: DEXILANT 30 MG GT SCH (05:23)
[2018-08-20] MEDS: GABAPENTIN 300 MG CAPSULE GT SCH ×3 (05:23→20:47)
[2018-08-20] MEDS: INSULIN REGULAR, HUMAN 100 UNIT/ML 3 ML VIAL SQ PRN (05:56)
[2018-08-20] MEDS: BLOOD SUGAR DIAGNOSTIC 1 EACH STRIP IN SCH ×2 (05:56→18:28)
[2018-08-20] MEDS: BISACODYL SUPP (10 MG) 10 MG/SUPP.RECT SUPP.RECT RC PRN (06:57)
[2018-08-20] MEDS: GLUCERNA 1.2 1,000 ML BOTTLE GT PRN (06:57)
--- NOTE | 2018-08-20 07:29 | NUR ---
Female trach pt received unlabored on a mechanical vent. Pt trach is secure. Vent is plugged into a red outlet, alarms are set and audible, and BMV is at bedside. Addendum: 08/20/18 at 0730 by MARKIE PINO RT Amended: Links added.
[2018-08-20 07:34] VITALS: BP 119/58
[2018-08-20] MEDS: SIMETHICONE SUSP 40 MG/0.6 ML BOTTLE GT SCH ×2 (09:00→20:47)
[2018-08-20] MEDS: DOCUSATE SODIUM LIQ 100 MG/10 ML UDC GT SCH (09:32)
[2018-08-20] MEDS: FERROUS SULFATE - FOR SA ONLY 330 MG/7.5 ML UDC GT SCH ×2 (09:32→17:00)
[2018-08-20] MEDS: ACIDOPHILUS/BULGARICUS 1 EACH TAB.CHEW GT SCH ×2 (09:33→17:00)
[2018-08-20] MEDS: CALCIUM CARBONATE 500 MG TAB.CHEW GT SCH ×2 (09:33→17:00)
[2018-08-20] MEDS: PROSOURCE DIETARY LIQUID 30 ML LIQUID GT SCH ×2 (09:33→17:00)
[2018-08-20] MEDS: Z GUARD REMEDY 4 OZ OINT TP SCH ×4 (09:33→20:48)
[2018-08-20] MEDS: LEVETIRACETAM SOL (5 ML) 100 MG/ML UDC GT SCH ×2 (09:33→20:47)
[2018-08-20] MEDS: [UNRECOGNIZED DRUG - OTHER] TP SCH ×2 (09:33→20:48)
[2018-08-20] MEDS: MULTIVIT W/MINERALS 1 TAB TABLET GT SCH (09:33)
[2018-08-20] MEDS: TRILEPTAL GT SCH ×2 (09:33→20:47)
[2018-08-20] MEDS: HYDROGEN PEROXIDE 480 ML BOTTLE TP SCH ×2 (09:33→20:48)
[2018-08-20] MEDS: VIT A TP SCH ×2 (09:33→20:48)
--- NOTE | 2018-08-20 11:04 | NUR ---
GRAIN FARMER found GT out with balloon intact during medication administration, reinserted GT with Fr. #[id number]. Obtained order from Dr. Montaño for abdominal KUB to verify GT placement. Order carried out. Resident's sister Beckie informed.
--- NOTE | 2018-08-20 13:03 | NUR ---
[employer] [facility] (annual). Resident has a DPOA ( her sister Beckie) who makes decision for her in her behalf. Pt. is full code. Resident has a dentist appoint on September 06. She had annual edge trimmer appoint in June 2018, next appoint is in 2019.
[2018-08-20] MEDS: LEVOFLOXACIN (250MG) 250 MG TABLET GT SCH (14:55)
[2018-08-20 20:04] VITALS: BP 101/68
[2018-08-20] MEDS: ASCORBIC ACID 500 MG TABLET GT SCH (20:47)
[2018-08-21] MEDS: ALBUTEROL FS 2.5 MG/3 ML VIAL.NEB NEB SCH ×4 (01:24→19:36)
[2018-08-21] MEDS: BLOOD SUGAR DIAGNOSTIC 1 EACH STRIP IN SCH ×2 (05:30→17:50)
[2018-08-21] MEDS: DEXILANT 30 MG GT SCH (05:30)
[2018-08-21] MEDS: GABAPENTIN 300 MG CAPSULE GT SCH ×3 (05:30→21:20)
[2018-08-21] MEDS: INSULIN REGULAR, HUMAN 100 UNIT/ML 3 ML VIAL SQ PRN (05:32)
[2018-08-21] MEDS: SIMETHICONE SUSP 40 MG/0.6 ML BOTTLE GT SCH ×2 (08:00→20:00)
[2018-08-21 08:09] VITALS: BP 120/74
--- NOTE | 2018-08-21 08:58 | NUR ---
RT PATIENT REC'D TRACH'D ON MECHANICAL VENT WITH CHARTED SETTINGS. NO SOB NOTED AT THIS TIME. TX GIVEN AND NO ADVERSE REACTION NOTED. SX DONE. PT TRACH PATENT AND SECURE. VENT PLUGGED INTO RED OUTLET. ALARMS ARE SET AND AUDIBLE. AMBU BAG AT BEDSIDE. WILL CONTINUE TO MONITOR. Addendum: 08/21/18 at 0858 by MARCO FRANCOIS RT Amended: Links added.
[2018-08-21] MEDS: FERROUS SULFATE - FOR SA ONLY 330 MG/7.5 ML UDC GT SCH ×2 (09:32→17:50)
[2018-08-21] MEDS: DOCUSATE SODIUM LIQ 100 MG/10 ML UDC GT SCH (09:32)
[2018-08-21] MEDS: MULTIVIT W/MINERALS 1 TAB TABLET GT SCH (09:32)
[2018-08-21] MEDS: ACIDOPHILUS/BULGARICUS 1 EACH TAB.CHEW GT SCH ×2 (09:32→17:50)
[2018-08-21] MEDS: Z GUARD REMEDY 4 OZ OINT TP SCH ×4 (09:32→21:20)
[2018-08-21] MEDS: PROSOURCE DIETARY LIQUID 30 ML LIQUID GT SCH ×2 (09:32→17:50)
[2018-08-21] MEDS: HYDROGEN PEROXIDE 480 ML BOTTLE TP SCH ×2 (09:32→21:20)
[2018-08-21] MEDS: [UNRECOGNIZED DRUG - OTHER] TP SCH ×2 (09:32→21:20)
[2018-08-21] MEDS: LEVETIRACETAM SOL (5 ML) 100 MG/ML UDC GT SCH ×2 (09:32→21:20)
[2018-08-21] MEDS: CALCIUM CARBONATE 500 MG TAB.CHEW GT SCH ×2 (09:32→17:50)
[2018-08-21] MEDS: VIT A TP SCH ×2 (09:32→21:20)
[2018-08-21] MEDS: TRILEPTAL GT SCH ×2 (09:32→21:20)
[2018-08-21] MEDS: LEVOFLOXACIN (250MG) 250 MG TABLET GT SCH (14:00)
[2018-08-21 20:02] VITALS: BP 126/73
[2018-08-21] MEDS: ASCORBIC ACID 500 MG TABLET GT SCH (21:20)
[2018-08-22] MEDS: ALBUTEROL FS 2.5 MG/3 ML VIAL.NEB NEB SCH ×4 (01:24→19:57)
[2018-08-22] MEDS: DEXILANT 30 MG GT SCH (05:44)
[2018-08-22] MEDS: BLOOD SUGAR DIAGNOSTIC 1 EACH STRIP IN SCH ×2 (05:44→17:56)
[2018-08-22] MEDS: GABAPENTIN 300 MG CAPSULE GT SCH ×3 (05:44→20:06)
[2018-08-22] MEDS: INSULIN REGULAR, HUMAN 100 UNIT/ML 3 ML VIAL SQ PRN (05:45)
[2018-08-22] MEDS: GLUCERNA 1.2 1,000 ML BOTTLE GT PRN ×2 (05:55→18:31)
[2018-08-22 07:41] VITALS: BP 129/85
[2018-08-22] MEDS: SIMETHICONE SUSP 40 MG/0.6 ML BOTTLE GT SCH ×2 (08:00→20:06)
[2018-08-22] MEDS: MULTIVIT W/MINERALS 1 TAB TABLET GT SCH (09:26)
[2018-08-22] MEDS: FERROUS SULFATE - FOR SA ONLY 330 MG/7.5 ML UDC GT SCH ×2 (09:26→16:08)
[2018-08-22] MEDS: LEVETIRACETAM SOL (5 ML) 100 MG/ML UDC GT SCH ×2 (09:26→20:06)
[2018-08-22] MEDS: ACIDOPHILUS/BULGARICUS 1 EACH TAB.CHEW GT SCH ×2 (09:26→16:08)
[2018-08-22] MEDS: TRILEPTAL GT SCH ×2 (09:26→20:06)
[2018-08-22] MEDS: DOCUSATE SODIUM LIQ 100 MG/10 ML UDC GT SCH (09:26)
[2018-08-22] MEDS: PROSOURCE DIETARY LIQUID 30 ML LIQUID GT SCH ×2 (09:26→16:08)
[2018-08-22] MEDS: CALCIUM CARBONATE 500 MG TAB.CHEW GT SCH ×2 (09:26→16:08)
[2018-08-22] MEDS: VIT A TP SCH ×2 (09:27→20:06)
[2018-08-22] MEDS: [UNRECOGNIZED DRUG - OTHER] TP SCH ×2 (09:27→20:06)
[2018-08-22] MEDS: HYDROGEN PEROXIDE 480 ML BOTTLE TP SCH ×2 (09:27→20:06)
[2018-08-22] MEDS: Z GUARD REMEDY 4 OZ OINT TP SCH ×4 (09:27→20:06)
[2018-08-22] MEDS: LEVOFLOXACIN (250MG) 250 MG TABLET GT SCH (14:37)
[2018-08-22 20:00] VITALS: BP 110/63
[2018-08-22] MEDS: ASCORBIC ACID 500 MG TABLET GT SCH (20:06)
[2018-08-23] MEDS: ALBUTEROL FS 2.5 MG/3 ML VIAL.NEB NEB SCH ×4 (00:53→19:38)
[2018-08-23] MEDS: DEXILANT 30 MG GT SCH (05:10)
[2018-08-23] MEDS: GABAPENTIN 300 MG CAPSULE GT SCH ×3 (05:10→20:54)
[2018-08-23] MEDS: BLOOD SUGAR DIAGNOSTIC 1 EACH STRIP IN SCH ×2 (05:53→17:30)
--- NOTE | 2018-08-23 07:41 | NUR ---
Female trach pt received unlabored on a mechanical vent. Pt trach is secure. Vent is plugged into a red outlet, alarms are set and audible, and BMV is at bedside. Addendum: 08/23/18 at 0742 by MARKIE PINO RT Amended: Links added.
[2018-08-23] MEDS: PROSOURCE DIETARY LIQUID 30 ML LIQUID GT SCH ×2 (08:20→16:51)
[2018-08-23] MEDS: MULTIVIT W/MINERALS 1 TAB TABLET GT SCH (08:20)
[2018-08-23] MEDS: FERROUS SULFATE - FOR SA ONLY 330 MG/7.5 ML UDC GT SCH ×2 (08:21→16:51)
[2018-08-23] MEDS: SIMETHICONE SUSP 40 MG/0.6 ML BOTTLE GT SCH ×2 (08:21→20:54)
[2018-08-23] MEDS: DOCUSATE SODIUM LIQ 100 MG/10 ML UDC GT SCH (08:21)
[2018-08-23] MEDS: ACIDOPHILUS/BULGARICUS 1 EACH TAB.CHEW GT SCH ×2 (08:22→16:51)
[2018-08-23] MEDS: LEVETIRACETAM SOL (5 ML) 100 MG/ML UDC GT SCH ×2 (08:22→20:54)
[2018-08-23] MEDS: VIT A TP SCH ×2 (08:23→20:55)
[2018-08-23] MEDS: CALCIUM CARBONATE 500 MG TAB.CHEW GT SCH ×2 (08:23→16:51)
[2018-08-23] MEDS: [UNRECOGNIZED DRUG - OTHER] TP SCH ×2 (08:23→20:55)
[2018-08-23] MEDS: TRILEPTAL GT SCH ×2 (08:23→20:54)
[2018-08-23] MEDS: Z GUARD REMEDY 4 OZ OINT TP SCH ×4 (08:24→20:55)
[2018-08-23] MEDS: HYDROGEN PEROXIDE 480 ML BOTTLE TP SCH ×2 (08:24→20:55)
[2018-08-23 10:43] VITALS: BP 107/67
[2018-08-23] MEDS: LEVOFLOXACIN (250MG) 250 MG TABLET GT SCH (13:19)
[2018-08-23] MEDS: GLUCERNA 1.2 1,000 ML BOTTLE GT PRN (17:48)
[2018-08-23 19:45] VITALS: BP 128/78
[2018-08-23] MEDS: ASCORBIC ACID 500 MG TABLET GT SCH (20:55)
[2018-08-24] MEDS: ALBUTEROL FS 2.5 MG/3 ML VIAL.NEB NEB SCH ×4 (00:36→19:59)
[2018-08-24] MEDS: GABAPENTIN 300 MG CAPSULE GT SCH ×3 (05:53→20:58)
[2018-08-24] MEDS: DEXILANT 30 MG GT SCH (05:53)
[2018-08-24] MEDS: BLOOD SUGAR DIAGNOSTIC 1 EACH STRIP IN SCH ×2 (06:11→17:41)
[2018-08-24 07:23] VITALS: BP 100/61
[2018-08-24] MEDS: SIMETHICONE SUSP 40 MG/0.6 ML BOTTLE GT SCH ×2 (09:38→20:58)
[2018-08-24] MEDS: PROSOURCE DIETARY LIQUID 30 ML LIQUID GT SCH ×2 (09:38→17:41)
[2018-08-24] MEDS: CALCIUM CARBONATE 500 MG TAB.CHEW GT SCH ×2 (09:38→17:41)
[2018-08-24] MEDS: FERROUS SULFATE - FOR SA ONLY 330 MG/7.5 ML UDC GT SCH ×2 (09:38→17:41)
[2018-08-24] MEDS: Z GUARD REMEDY 4 OZ OINT TP SCH ×2 (09:38→20:59)
[2018-08-24] MEDS: VIT A TP SCH ×2 (09:38→20:58)
[2018-08-24] MEDS: ACIDOPHILUS/BULGARICUS 1 EACH TAB.CHEW GT SCH ×2 (09:38→17:41)
[2018-08-24] MEDS: HYDROGEN PEROXIDE 480 ML BOTTLE TP SCH ×2 (09:38→20:59)
[2018-08-24] MEDS: TRILEPTAL GT SCH ×2 (09:38→20:58)
[2018-08-24] MEDS: LEVETIRACETAM SOL (5 ML) 100 MG/ML UDC GT SCH ×2 (09:38→20:58)
[2018-08-24] MEDS: [UNRECOGNIZED DRUG - OTHER] TP SCH ×2 (09:38→20:58)
[2018-08-24] MEDS: DOCUSATE SODIUM LIQ 100 MG/10 ML UDC GT SCH (09:38)
[2018-08-24] MEDS: MULTIVIT W/MINERALS 1 TAB TABLET GT SCH (09:38)
[2018-08-24] MEDS: LEVOFLOXACIN (250MG) 250 MG TABLET GT SCH (14:00)
[2018-08-24] MEDS: GLUCERNA 1.2 1,000 ML BOTTLE GT PRN (15:52)
[2018-08-24] MEDS: INSULIN REGULAR, HUMAN 100 UNIT/ML 3 ML VIAL SQ PRN (17:42)
[2018-08-24] MEDS: ASCORBIC ACID 500 MG TABLET GT SCH (20:58)
[2018-08-24 21:44] VITALS: BP 115/46
[2018-08-25] MEDS: ALBUTEROL FS 2.5 MG/3 ML VIAL.NEB NEB SCH ×4 (01:27→19:41)
[2018-08-25] MEDS: GABAPENTIN 300 MG CAPSULE GT SCH ×3 (05:00→21:32)
[2018-08-25] MEDS: DEXILANT 30 MG GT SCH (06:06)
[2018-08-25] MEDS: BLOOD SUGAR DIAGNOSTIC 1 EACH STRIP IN SCH ×2 (06:06→18:10)
[2018-08-25 07:34] VITALS: BP 106/65
[2018-08-25] MEDS: SIMETHICONE SUSP 40 MG/0.6 ML BOTTLE GT SCH ×2 (08:00→20:00)
[2018-08-25] MEDS: [UNRECOGNIZED DRUG - OTHER] TP SCH ×2 (09:00→21:32)
[2018-08-25] MEDS: Z GUARD REMEDY 4 OZ OINT TP SCH ×2 (09:00→21:32)
[2018-08-25] MEDS: HYDROGEN PEROXIDE 480 ML BOTTLE TP SCH ×2 (09:00→21:32)
[2018-08-25] MEDS: VIT A TP SCH ×2 (09:00→21:32)
[2018-08-25] MEDS: LEVETIRACETAM SOL (5 ML) 100 MG/ML UDC GT SCH ×2 (09:43→21:32)
[2018-08-25] MEDS: FERROUS SULFATE - FOR SA ONLY 330 MG/7.5 ML UDC GT SCH ×2 (09:43→16:30)
[2018-08-25] MEDS: DOCUSATE SODIUM LIQ 100 MG/10 ML UDC GT SCH (09:43)
[2018-08-25] MEDS: ACIDOPHILUS/BULGARICUS 1 EACH TAB.CHEW GT SCH ×2 (09:44→16:30)
[2018-08-25] MEDS: PROSOURCE DIETARY LIQUID 30 ML LIQUID GT SCH ×2 (09:44→16:30)
[2018-08-25] MEDS: TRILEPTAL GT SCH ×2 (09:44→21:32)
[2018-08-25] MEDS: MULTIVIT W/MINERALS 1 TAB TABLET GT SCH (09:45)
[2018-08-25] MEDS: CALCIUM CARBONATE 500 MG TAB.CHEW GT SCH ×2 (09:45→16:30)
[2018-08-25] MEDS: GLUCERNA 1.2 1,000 ML BOTTLE GT PRN (12:50)
[2018-08-25] MEDS: LEVOFLOXACIN (250MG) 250 MG TABLET GT SCH (17:00)
[2018-08-25] MEDS: INSULIN REGULAR, HUMAN 100 UNIT/ML 3 ML VIAL SQ PRN (18:10)
[2018-08-25 20:30] VITALS: BP 117/77
[2018-08-25] MEDS: ASCORBIC ACID 500 MG TABLET GT SCH (21:32)
[2018-08-26] MEDS: ALBUTEROL FS 2.5 MG/3 ML VIAL.NEB NEB SCH ×4 (00:53→19:27)
--- NOTE | 2018-08-26 01:34 | NUR ---
PT RCVD TRACH'D ON MECHANICAL WITH CHARTED SETTINGS. TX GIVEN AND NO ADVERSE REACTION NOTED. SX DONE. PT TRACH PATENT AND SECURE. VENT PLUGGED INTO RED OUTLET. ALARMS ARE SET AND AUDIBLE. AMBU BAG AT BEDSIDE. WILL CONTINUE TO MONITOR. Addendum: 08/26/18 at 0135 by MICH AVILA RT Amended: Links added.
[2018-08-26] MEDS: DEXILANT 30 MG GT SCH (05:43)
[2018-08-26] MEDS: GLUCERNA 1.2 1,000 ML BOTTLE GT PRN (05:43)
[2018-08-26] MEDS: GABAPENTIN 300 MG CAPSULE GT SCH ×3 (05:43→21:25)
[2018-08-26] MEDS: BLOOD SUGAR DIAGNOSTIC 1 EACH STRIP IN SCH ×2 (05:43→18:00)
[2018-08-26] MEDS: INSULIN REGULAR, HUMAN 100 UNIT/ML 3 ML VIAL SQ PRN (05:43)
[2018-08-26 07:30] VITALS: BP 101/69
--- NOTE | 2018-08-26 07:32 | NUR ---
Female trach pt received unlabored on a mechanical vent. Pt trach is secure. Vent is plugged into a red outlet, alarms are set and audible, and BMV is at bedside. Addendum: 08/26/18 at 0734 by MARKIE PINO RT Amended: Links added.
[2018-08-26] MEDS: SIMETHICONE SUSP 40 MG/0.6 ML BOTTLE GT SCH ×2 (08:00→20:00)
[2018-08-26] MEDS: NYSTATIN TOP POWDER 15 GM BOTTLE TP SCH ×2 (09:33→21:25)
[2018-08-26] MEDS: DOCUSATE SODIUM LIQ 100 MG/10 ML UDC GT SCH (09:33)
[2018-08-26] MEDS: [UNRECOGNIZED DRUG - OTHER] TP SCH ×2 (09:33→21:25)
[2018-08-26] MEDS: MULTIVIT W/MINERALS 1 TAB TABLET GT SCH (09:33)
[2018-08-26] MEDS: FERROUS SULFATE - FOR SA ONLY 330 MG/7.5 ML UDC GT SCH ×2 (09:33→16:56)
[2018-08-26] MEDS: HYDROGEN PEROXIDE 480 ML BOTTLE TP SCH ×2 (09:33→21:25)
[2018-08-26] MEDS: CALCIUM CARBONATE 500 MG TAB.CHEW GT SCH ×2 (09:33→16:56)
[2018-08-26] MEDS: PROSOURCE DIETARY LIQUID 30 ML LIQUID GT SCH ×2 (09:33→16:56)
[2018-08-26] MEDS: LEVETIRACETAM SOL (5 ML) 100 MG/ML UDC GT SCH ×2 (09:33→21:25)
[2018-08-26] MEDS: VIT A TP SCH ×2 (09:33→21:25)
[2018-08-26] MEDS: TRIAMCINOLONE ACETONIDE 0.025% 15 GM TUBE TP SCH ×2 (09:33→21:25)
[2018-08-26] MEDS: TRILEPTAL GT SCH ×2 (09:33→21:25)
[2018-08-26] MEDS: ACIDOPHILUS/BULGARICUS 1 EACH TAB.CHEW GT SCH ×2 (09:33→16:56)
[2018-08-26] MEDS: Z GUARD REMEDY 4 OZ OINT TP SCH ×2 (09:34→21:25)
[2018-08-26] MEDS: MAGNESIUM HYDROXIDE 30 ML UDC GT PRN (20:30)
[2018-08-26 20:58] VITALS: BP 104/67
[2018-08-26] MEDS: ASCORBIC ACID 500 MG TABLET GT SCH (21:25)
[2018-08-27] MEDS: ALBUTEROL FS 2.5 MG/3 ML VIAL.NEB NEB SCH ×4 (00:53→19:00)
[2018-08-27] MEDS: GABAPENTIN 300 MG CAPSULE GT SCH ×3 (05:37→21:38)
[2018-08-27] MEDS: BLOOD SUGAR DIAGNOSTIC 1 EACH STRIP IN SCH ×2 (05:37→18:30)
[2018-08-27] MEDS: DEXILANT 30 MG GT SCH (05:37)
[2018-08-27] MEDS: INSULIN REGULAR, HUMAN 100 UNIT/ML 3 ML VIAL SQ PRN (05:37)
[2018-08-27] MEDS: GLUCERNA 1.2 1,000 ML BOTTLE GT PRN (05:54)
[2018-08-27] MEDS: BISACODYL SUPP (10 MG) 10 MG/SUPP.RECT SUPP.RECT RC PRN (07:00)
[2018-08-27 07:49] VITALS: BP 133/91
[2018-08-27] MEDS: SIMETHICONE SUSP 40 MG/0.6 ML BOTTLE GT SCH ×2 (08:00→20:00)
[2018-08-27] MEDS: TRIAMCINOLONE ACETONIDE 0.025% 15 GM TUBE TP SCH ×2 (09:15→21:39)
[2018-08-27] MEDS: HYDROGEN PEROXIDE 480 ML BOTTLE TP SCH ×2 (09:15→21:41)
[2018-08-27] MEDS: DOCUSATE SODIUM LIQ 100 MG/10 ML UDC GT SCH (09:15)
[2018-08-27] MEDS: VIT A TP SCH ×2 (09:15→21:41)
[2018-08-27] MEDS: [UNRECOGNIZED DRUG - OTHER] TP SCH ×2 (09:15→21:41)
[2018-08-27] MEDS: TRILEPTAL GT SCH ×2 (09:15→21:38)
[2018-08-27] MEDS: MULTIVIT W/MINERALS 1 TAB TABLET GT SCH (09:15)
[2018-08-27] MEDS: CALCIUM CARBONATE 500 MG TAB.CHEW GT SCH ×2 (09:15→17:00)
[2018-08-27] MEDS: FERROUS SULFATE - FOR SA ONLY 330 MG/7.5 ML UDC GT SCH ×2 (09:15→17:00)
[2018-08-27] MEDS: LEVETIRACETAM SOL (5 ML) 100 MG/ML UDC GT SCH ×2 (09:15→21:38)
[2018-08-27] MEDS: ACIDOPHILUS/BULGARICUS 1 EACH TAB.CHEW GT SCH ×2 (09:15→17:00)
[2018-08-27] MEDS: PROSOURCE DIETARY LIQUID 30 ML LIQUID GT SCH ×2 (09:15→17:00)
[2018-08-27] MEDS: NYSTATIN TOP POWDER 15 GM BOTTLE TP SCH ×2 (09:16→21:41)
[2018-08-27] MEDS: Z GUARD REMEDY 4 OZ OINT TP SCH ×2 (09:16→21:41)
[2018-08-27 19:34] VITALS: BP 121/69
[2018-08-27] MEDS: ASCORBIC ACID 500 MG TABLET GT SCH (21:38)
[2018-08-28] MEDS: ALBUTEROL FS 2.5 MG/3 ML VIAL.NEB NEB SCH ×4 (01:32→19:45)
[2018-08-28] MEDS: INSULIN REGULAR, HUMAN 100 UNIT/ML 3 ML VIAL SQ PRN (05:27)
[2018-08-28] MEDS: DEXILANT 30 MG GT SCH (05:27)
[2018-08-28] MEDS: BLOOD SUGAR DIAGNOSTIC 1 EACH STRIP IN SCH ×2 (05:27→18:27)
[2018-08-28] MEDS: GABAPENTIN 300 MG CAPSULE GT SCH ×3 (05:27→20:06)
[2018-08-28 07:38] VITALS: BP 105/74
[2018-08-28] MEDS: SIMETHICONE SUSP 40 MG/0.6 ML BOTTLE GT SCH ×2 (08:00→20:06)
[2018-08-28] MEDS: TRILEPTAL GT SCH ×2 (09:27→20:06)
[2018-08-28] MEDS: LEVETIRACETAM SOL (5 ML) 100 MG/ML UDC GT SCH ×2 (09:27→20:06)
[2018-08-28] MEDS: CALCIUM CARBONATE 500 MG TAB.CHEW GT SCH ×2 (09:27→17:00)
[2018-08-28] MEDS: ACIDOPHILUS/BULGARICUS 1 EACH TAB.CHEW GT SCH ×2 (09:27→17:00)
[2018-08-28] MEDS: PROSOURCE DIETARY LIQUID 30 ML LIQUID GT SCH ×2 (09:27→17:00)
[2018-08-28] MEDS: DOCUSATE SODIUM LIQ 100 MG/10 ML UDC GT SCH (09:27)
[2018-08-28] MEDS: FERROUS SULFATE - FOR SA ONLY 330 MG/7.5 ML UDC GT SCH ×2 (09:27→17:00)
[2018-08-28] MEDS: MULTIVIT W/MINERALS 1 TAB TABLET GT SCH (09:27)
[2018-08-28] MEDS: VIT A TP SCH ×2 (09:28→20:06)
[2018-08-28] MEDS: Z GUARD REMEDY 4 OZ OINT TP SCH ×2 (09:28→20:06)
[2018-08-28] MEDS: TRIAMCINOLONE ACETONIDE 0.025% 15 GM TUBE TP SCH ×2 (09:28→20:06)
[2018-08-28] MEDS: [UNRECOGNIZED DRUG - OTHER] TP SCH ×2 (09:28→20:06)
[2018-08-28] MEDS: NYSTATIN TOP POWDER 15 GM BOTTLE TP SCH ×2 (09:28→20:06)
[2018-08-28] MEDS: HYDROGEN PEROXIDE 480 ML BOTTLE TP SCH ×2 (09:28→20:06)
[2018-08-28] MEDS: GLUCERNA 1.2 1,000 ML BOTTLE GT PRN (18:28)
[2018-08-28] MEDS: MAGNESIUM HYDROXIDE 30 ML UDC GT PRN (18:28)
[2018-08-28 19:32] VITALS: BP 127/70
[2018-08-28] MEDS: ASCORBIC ACID 500 MG TABLET GT SCH (20:06)
[2018-08-29] MEDS: ALBUTEROL FS 2.5 MG/3 ML VIAL.NEB NEB SCH ×4 (00:38→19:30)
[2018-08-29] MEDS: DEXILANT 30 MG GT SCH (05:15)
[2018-08-29] MEDS: GABAPENTIN 300 MG CAPSULE GT SCH ×3 (05:15→20:18)
[2018-08-29] MEDS: BLOOD SUGAR DIAGNOSTIC 1 EACH STRIP IN SCH ×2 (06:04→17:51)
[2018-08-29 07:47] VITALS: BP 113/64
[2018-08-29] MEDS: ACIDOPHILUS/BULGARICUS 1 EACH TAB.CHEW GT SCH ×2 (08:27→16:29)
[2018-08-29] MEDS: [UNRECOGNIZED DRUG - OTHER] TP SCH ×2 (08:27→20:19)
[2018-08-29] MEDS: PROSOURCE DIETARY LIQUID 30 ML LIQUID GT SCH ×2 (08:27→16:29)
[2018-08-29] MEDS: LEVETIRACETAM SOL (5 ML) 100 MG/ML UDC GT SCH ×2 (08:27→20:18)
[2018-08-29] MEDS: HYDROGEN PEROXIDE 480 ML BOTTLE TP SCH ×2 (08:27→20:19)
[2018-08-29] MEDS: Z GUARD REMEDY 4 OZ OINT TP SCH ×2 (08:27→20:19)
[2018-08-29] MEDS: NYSTATIN TOP POWDER 15 GM BOTTLE TP SCH ×2 (08:27→20:19)
[2018-08-29] MEDS: FERROUS SULFATE - FOR SA ONLY 330 MG/7.5 ML UDC GT SCH ×2 (08:27→16:29)
[2018-08-29] MEDS: CALCIUM CARBONATE 500 MG TAB.CHEW GT SCH ×2 (08:27→16:29)
[2018-08-29] MEDS: TRILEPTAL GT SCH ×2 (08:27→20:18)
[2018-08-29] MEDS: SIMETHICONE SUSP 40 MG/0.6 ML BOTTLE GT SCH ×2 (08:27→20:18)
[2018-08-29] MEDS: VIT A TP SCH ×2 (08:27→20:19)
[2018-08-29] MEDS: MULTIVIT W/MINERALS 1 TAB TABLET GT SCH (08:27)
[2018-08-29] MEDS: DOCUSATE SODIUM LIQ 100 MG/10 ML UDC GT SCH (08:27)
[2018-08-29] MEDS: TRIAMCINOLONE ACETONIDE 0.025% 15 GM TUBE TP SCH ×2 (08:27→20:18)
[2018-08-29] MEDS: GLUCERNA 1.2 1,000 ML BOTTLE GT PRN (17:54)
--- NOTE | 2018-08-29 19:30 | NUR ---
RT NOTE: RECEIVED TRACH PT ON [facility] VENT ON NOTED SETTINGS PER MD ORDERS. TRACH IS PATENT AND SECURED. VISCOSE CELLAR CHARGE HAND DONE. Q6 BREATHING TX GIVEN WITH NO ADVERSE REACTION NOTED. SX DONE PRN. VENT PLUGGED INTO RED OUTLET. ALARMS ON AND AUDIBLE. NEVA BAG @ BEDSIDE. NO RESP DISTRESS AT THIS TIME. WILL CONT TO MONITOR PT. Addendum: 08/30/18 at 0203 by QIANA MARY RT Amended: Links added.
[2018-08-29 20:17] VITALS: BP 131/88
[2018-08-29] MEDS: ASCORBIC ACID 500 MG TABLET GT SCH (20:18)
[2018-08-30] MEDS: ALBUTEROL FS 2.5 MG/3 ML VIAL.NEB NEB SCH ×4 (00:50→19:55)
[2018-08-30] MEDS: GABAPENTIN 300 MG CAPSULE GT SCH ×3 (05:17→20:07)
[2018-08-30] MEDS: DEXILANT 30 MG GT SCH (05:17)
[2018-08-30] MEDS: BLOOD SUGAR DIAGNOSTIC 1 EACH STRIP IN SCH ×2 (05:59→18:00)
[2018-08-30 07:33] VITALS: BP 126/68
[2018-08-30] MEDS: SIMETHICONE SUSP 40 MG/0.6 ML BOTTLE GT SCH ×2 (08:00→20:07)
[2018-08-30] MEDS: NYSTATIN TOP POWDER 15 GM BOTTLE TP SCH ×2 (09:00→20:08)
[2018-08-30] MEDS: TRIAMCINOLONE ACETONIDE 0.025% 15 GM TUBE TP SCH ×2 (09:00→20:07)
[2018-08-30] MEDS: VIT A TP SCH ×2 (09:00→20:08)
[2018-08-30] MEDS: MULTIVIT W/MINERALS 1 TAB TABLET GT SCH (09:00)
[2018-08-30] MEDS: ACIDOPHILUS/BULGARICUS 1 EACH TAB.CHEW GT SCH ×2 (09:00→17:00)
[2018-08-30] MEDS: PROSOURCE DIETARY LIQUID 30 ML LIQUID GT SCH ×2 (09:00→17:00)
[2018-08-30] MEDS: FERROUS SULFATE - FOR SA ONLY 330 MG/7.5 ML UDC GT SCH ×2 (09:00→17:00)
[2018-08-30] MEDS: [UNRECOGNIZED DRUG - OTHER] TP SCH ×2 (09:00→20:08)
[2018-08-30] MEDS: TRILEPTAL GT SCH ×2 (09:00→20:07)
[2018-08-30] MEDS: LEVETIRACETAM SOL (5 ML) 100 MG/ML UDC GT SCH ×2 (09:00→20:07)
[2018-08-30] MEDS: Z GUARD REMEDY 4 OZ OINT TP SCH ×2 (09:00→20:08)
[2018-08-30] MEDS: HYDROGEN PEROXIDE 480 ML BOTTLE TP SCH ×2 (09:00→20:08)
[2018-08-30] MEDS: DOCUSATE SODIUM LIQ 100 MG/10 ML UDC GT SCH (09:00)
[2018-08-30] MEDS: CALCIUM CARBONATE 500 MG TAB.CHEW GT SCH ×2 (09:00→17:00)
--- NOTE | 2018-08-30 14:24 | NUR ---
STEPHEN communicated to patient's sister Nellie about IDT mtg this Sunday 09/03. Sister will not be able to attend it.
--- NOTE | 2018-08-30 14:27 | NUR ---
SW communicated to patient' sister about dentist appt on September 06.
[2018-08-30] MEDS: ASCORBIC ACID 500 MG TABLET GT SCH (20:07)
[2018-08-30 20:15] VITALS: BP 112/70
[2018-08-31] MEDS: ALBUTEROL FS 2.5 MG/3 ML VIAL.NEB NEB SCH ×4 (00:55→19:57)
[2018-08-31] MEDS: DEXILANT 30 MG GT SCH (05:18)
[2018-08-31] MEDS: GABAPENTIN 300 MG CAPSULE GT SCH ×3 (05:18→21:19)
[2018-08-31] MEDS: BLOOD SUGAR DIAGNOSTIC 1 EACH STRIP IN SCH ×2 (06:11→18:13)
[2018-08-31] MEDS: GLUCERNA 1.2 1,000 ML BOTTLE GT PRN (06:20)
[2018-08-31 07:29] VITALS: BP 126/74
[2018-08-31] MEDS: SIMETHICONE SUSP 40 MG/0.6 ML BOTTLE GT SCH ×2 (08:39→20:00)
[2018-08-31] MEDS: DOCUSATE SODIUM LIQ 100 MG/10 ML UDC GT SCH (08:39)
[2018-08-31] MEDS: FERROUS SULFATE - FOR SA ONLY 330 MG/7.5 ML UDC GT SCH ×2 (08:41→16:32)
[2018-08-31] MEDS: LEVETIRACETAM SOL (5 ML) 100 MG/ML UDC GT SCH ×2 (08:42→21:19)
[2018-08-31] MEDS: ACIDOPHILUS/BULGARICUS 1 EACH TAB.CHEW GT SCH ×2 (08:43→16:33)
[2018-08-31] MEDS: CALCIUM CARBONATE 500 MG TAB.CHEW GT SCH ×2 (08:45→16:34)
[2018-08-31] MEDS: MULTIVIT W/MINERALS 1 TAB TABLET GT SCH (08:48)
[2018-08-31] MEDS: PROSOURCE DIETARY LIQUID 30 ML LIQUID GT SCH ×2 (08:51→16:33)
[2018-08-31] MEDS: TRILEPTAL GT SCH ×2 (08:51→21:19)
[2018-08-31] MEDS: VIT A TP SCH ×2 (08:53→21:20)
[2018-08-31] MEDS: [UNRECOGNIZED DRUG - OTHER] TP SCH ×2 (08:53→21:20)
[2018-08-31] MEDS: TRIAMCINOLONE ACETONIDE 0.025% 15 GM TUBE TP SCH ×2 (08:53→21:19)
[2018-08-31] MEDS: Z GUARD REMEDY 4 OZ OINT TP SCH ×2 (08:54→21:20)
[2018-08-31] MEDS: HYDROGEN PEROXIDE 480 ML BOTTLE TP SCH ×2 (08:54→21:20)
[2018-08-31] MEDS: NYSTATIN TOP POWDER 15 GM BOTTLE TP SCH ×2 (08:54→21:20)
[2018-08-31] MEDS: LORAZEPAM 1 MG TABLET GT PRN (15:04)
--- NOTE | 2018-08-31 15:57 | NUR ---
Pt's sister was visiting today and informed charge nurse that pt does not seem to interact with her. Charge nurse saw pt and noticed that pt has a blank stare and she was occasionally twitching. T 97.6 F BP 146/74 HR 90 R 16 O2 sat 99%. Informed Dr Luis. Pt was given Ativan for seizure as she seems to be having petit mal seizure. Pt fell asleep and no more twitching was noted. Informed pt's sister.
--- NOTE | 2018-08-31 20:00 | NUR ---
RN NOTES Received pt in bed asleep, appears to be comfortable. No seizure activity noted. Will continue to monitor.
[2018-08-31 20:45] VITALS: BP 124/71
[2018-08-31] MEDS: ASCORBIC ACID 500 MG TABLET GT SCH (21:19)
[2018-09-01] MEDS: ALBUTEROL FS 2.5 MG/3 ML VIAL.NEB NEB SCH ×4 (01:17→19:47)
[2018-09-01] MEDS: GABAPENTIN 300 MG CAPSULE GT SCH ×3 (05:00→21:13)
[2018-09-01] MEDS: BLOOD SUGAR DIAGNOSTIC 1 EACH STRIP IN SCH ×2 (06:07→18:29)
[2018-09-01] MEDS: DEXILANT 30 MG GT SCH (06:07)
[2018-09-01 07:28] VITALS: BP 130/76
[2018-09-01] MEDS: DOCUSATE SODIUM LIQ 100 MG/10 ML UDC GT SCH (08:16)
[2018-09-01] MEDS: LEVETIRACETAM SOL (5 ML) 100 MG/ML UDC GT SCH ×2 (08:16→21:13)
[2018-09-01] MEDS: SIMETHICONE SUSP 40 MG/0.6 ML BOTTLE GT SCH ×2 (08:16→20:00)
[2018-09-01] MEDS: PROSOURCE DIETARY LIQUID 30 ML LIQUID GT SCH ×2 (08:16→16:59)
[2018-09-01] MEDS: TRILEPTAL GT SCH ×2 (08:16→21:13)
[2018-09-01] MEDS: MULTIVIT W/MINERALS 1 TAB TABLET GT SCH (08:16)
[2018-09-01] MEDS: ACIDOPHILUS/BULGARICUS 1 EACH TAB.CHEW GT SCH ×2 (08:16→16:59)
[2018-09-01] MEDS: FERROUS SULFATE - FOR SA ONLY 330 MG/7.5 ML UDC GT SCH ×2 (08:16→16:59)
[2018-09-01] MEDS: CALCIUM CARBONATE 500 MG TAB.CHEW GT SCH ×2 (08:17→16:59)
[2018-09-01] MEDS: Z GUARD REMEDY 4 OZ OINT TP SCH ×2 (09:00→21:14)
[2018-09-01] MEDS: NYSTATIN TOP POWDER 15 GM BOTTLE TP SCH ×2 (09:00→21:14)
[2018-09-01] MEDS: [UNRECOGNIZED DRUG - OTHER] TP SCH ×2 (09:00→21:13)
[2018-09-01] MEDS: TRIAMCINOLONE ACETONIDE 0.025% 15 GM TUBE TP SCH ×2 (09:00→21:13)
[2018-09-01] MEDS: HYDROGEN PEROXIDE 480 ML BOTTLE TP SCH ×2 (09:00→21:14)
[2018-09-01] MEDS: VIT A TP SCH ×2 (09:00→21:13)
--- NOTE | 2018-09-01 09:20 | NUR ---
NISSAN SALES CONSULTANT called this nurse and reported patient unresponsive. According to NISSAN SALES CONSULTANT she was about provide AM care when she noticed that patient is not responding and very flaccid. Notified Dr. Luis of the episode of passing out that lasted about 2 minutes. Staff immediately went inside the room and provided deep painful stimulation to the chest but not responding. Observed resident move her tongue and mouth during tracheal suctioning, then slowly open her eyes and look around her surrounding. V/S147/77, 158, 02 sat 86 % RR 16 and BS 154 during the time when she was unresponsive. V/S after she woke up 148/81, 96, 99%, 16. T98.2. Trileptal level at 37 taken on 08/16/18. Dr. Luis ordered to inform Dr. Malave, neurologist. Left a message to MD regarding consult.
--- NOTE | 2018-09-01 09:40 | NUR ---
Notified resident's sister Beckie of episode of unresponsiveness this morning, she said that she was here yesterday and noticed that she has been sleeping a lot. She said that nurse took patient's temperature yesterday while she was visiting and has no fever. At this time patient also afebrile and made aware that neurologist was called but awaiting for call back. Appreciated the call.
[2018-09-01] MEDS: GLUCERNA 1.2 1,000 ML BOTTLE GT PRN (13:08)
[2018-09-01] MEDS: LORAZEPAM 1 MG TABLET GT PRN (13:08)
--- NOTE | 2018-09-01 13:56 | NUR ---
Made a follow-up call with Dr. Malave, neurologist. Patient had seizure like spasm of the upper extremities as observed by another RN lasting about 5-7 seconds. VS at this time, 117/55, 93, 100%, T 98.2, RR 16. awaiting for MD to call back.
--- NOTE | 2018-09-01 14:05 | NUR ---
Dr. Severino, returned the call with new order for labs and UA. Left a message to resident's sister of new order.
[2018-09-01 16:31] LABS: BASOPHILS # (AUTO) 0.1 /CMM (0.0-0.2); EOSINOPHILS % (AUTO) 3.7 % (0.0-6.0); HEMATOCRIT 28 % (33-45); HEMOGLOBIN 9.8 g/dL (11.5-14.8); LYMPHOCYTES # (AUTO) 3.3 /CMM (0.8-4.8); LYMPHOCYTES % (AUTO) 29.5 % (20.0-44.0); MEAN CORPUSCULAR HGB CONC 35 g/dl (31.0-36.0); MEAN CORPUSCULAR VOLUME 100 fL (82-100); MONOCYTES # (AUTO) 0.9 /CMM (0.1-1.30); MONOCYTES % (AUTO) 8.2 % (2.0-12.0); NEUTROPHILS # (AUTO) 6.4 /CMM (1.8-8.9); NEUTROPHILS % (AUTO) 57.6 % (43.0-81.0); PLATELET COUNT (AUTO) 312 /CMM (150-450); RED BLOOD CELL COUNT(AUTO) 2.83 MIL/uL (4.0-5.2); WHITE BLOOD COUNT (AUTO) 11.1 K/uL (4.3-11.0)
[2018-09-01 16:53] LABS: CALCIUM, SERUM 9.6 mg/dL (8.5-10.1); CREATININE 2.1 mg/dL (0.6-1.3); MAGNESIUM 2.7 mg/dL (1.8-2.4); PHOSPHORUS 3.9 mg/dL (2.5-4.9); POTASSIUM 3.4 mmol/L (3.5-5.1)
--- NOTE | 2018-09-01 18:17 | NUR ---
Notified Dr. Luis of CBC, BMP result with elevated BUN 55, Creat 2.1, WBC 11.1. Dr. Luis ordered to start IVF of 1/2 NS at 80 cc/hr. Spoke with Beckie, sister and made aware of the IVF order including laboratory result.
[2018-09-01] MEDS: INSULIN REGULAR, HUMAN 100 UNIT/ML 3 ML VIAL SQ PRN (18:31)
[2018-09-01 19:57] VITALS: BP 132/72
--- NOTE | 2018-09-01 20:00 | NUR ---
Started 1/2 NS 80ml/hr for hydration,inserted IV on right foot.Will continue to monitor.
[2018-09-01 20:36] LABS: APPEARANCE,URINE CLOUDY (CLEAR); BILIRUBIN,URINE NEGATIVE (NEGATIVE); BLOOD, URINE 1+ Ery/uL (NEGATIVE); COLOR,URINE YELLOW (YELLOW); KETONES,URINE NEGATIVE (NEGATIVE); LEUKOCYTE ESTERASE ,URINE 3+ (NEGATIVE); NITRITE, URINE NEGATIVE (NEGATIVE); PROTEIN,URINE 3+ mg/dl (NEGATIVE); UGLUCOSE NEGATIVE (NEGATIVE); UROBILINOGEN,URINE 0.2 EU/dL (0.2)
[2018-09-01] MEDS: IV 1/2NS 1000 ML 1,000 ML IV PRN (21:00)
[2018-09-01] MEDS: ASCORBIC ACID 500 MG TABLET GT SCH (21:13)
[2018-09-01 21:29] LABS: BACTERIA,URINE Many /HPF (None Seen); SQUAMOUS EPITHELIAL CELL,UR Few /HPF (None Seen); WBC,URINE TOO NUMEROUS TO COUN /HPF (0-3)
[2018-09-02] MEDS: ALBUTEROL FS 2.5 MG/3 ML VIAL.NEB NEB SCH ×4 (01:28→19:37)
[2018-09-02] MEDS: GABAPENTIN 300 MG CAPSULE GT SCH ×3 (05:17→20:24)
[2018-09-02] MEDS: DEXILANT 30 MG GT SCH (05:17)
[2018-09-02] MEDS: BLOOD SUGAR DIAGNOSTIC 1 EACH STRIP IN SCH ×2 (05:50→18:19)
[2018-09-02] MEDS: INSULIN REGULAR, HUMAN 100 UNIT/ML 3 ML VIAL SQ PRN (05:50)
[2018-09-02 07:48] VITALS: BP 119/54
[2018-09-02] MEDS: CALCIUM CARBONATE 500 MG TAB.CHEW GT SCH ×2 (08:58→17:08)
[2018-09-02] MEDS: LEVETIRACETAM SOL (5 ML) 100 MG/ML UDC GT SCH ×2 (08:58→20:24)
[2018-09-02] MEDS: DOCUSATE SODIUM LIQ 100 MG/10 ML UDC GT SCH (08:58)
[2018-09-02] MEDS: FERROUS SULFATE - FOR SA ONLY 330 MG/7.5 ML UDC GT SCH ×2 (08:58→17:07)
[2018-09-02] MEDS: TRILEPTAL GT SCH ×2 (08:58→20:24)
[2018-09-02] MEDS: MULTIVIT W/MINERALS 1 TAB TABLET GT SCH (08:58)
[2018-09-02] MEDS: SIMETHICONE SUSP 40 MG/0.6 ML BOTTLE GT SCH ×2 (08:58→20:24)
[2018-09-02] MEDS: PROSOURCE DIETARY LIQUID 30 ML LIQUID GT SCH ×2 (08:58→17:08)
[2018-09-02] MEDS: ACIDOPHILUS/BULGARICUS 1 EACH TAB.CHEW GT SCH ×2 (08:58→17:07)
[2018-09-02] MEDS: TRIAMCINOLONE ACETONIDE 0.025% 15 GM TUBE TP SCH ×2 (08:58→20:24)
[2018-09-02] MEDS: HYDROGEN PEROXIDE 480 ML BOTTLE TP SCH ×2 (08:59→20:24)
[2018-09-02] MEDS: Z GUARD REMEDY 4 OZ OINT TP SCH ×2 (08:59→20:25)
[2018-09-02] MEDS: VIT A TP SCH ×2 (08:59→20:24)
[2018-09-02] MEDS: NYSTATIN TOP POWDER 15 GM BOTTLE TP SCH ×2 (08:59→20:25)
[2018-09-02] MEDS: [UNRECOGNIZED DRUG - OTHER] TP SCH ×2 (08:59→20:24)
[2018-09-02] MEDS: IV 1/2NS 1000 ML 1,000 ML IV PRN ×2 (08:59→21:13)
[2018-09-02] MEDS: ASCORBIC ACID 500 MG TABLET GT SCH (20:24)
[2018-09-02] MEDS: MAGNESIUM HYDROXIDE 30 ML UDC GT PRN (20:25)
[2018-09-02 20:29] VITALS: BP 140/72
--- NOTE | 2018-09-02 20:34 | NUR ---
RT NOTE PATIENT RECEIVED TRACHED ON MECHANICAL VENTILATION. AMBU BAG/BACK UP TRACH @ BEDSIDE. TX GIVEN, NO ADVERSE REACTIONS NOTED. SX DONE, MODERATE THICK WHITE SECRETIONS NOTED. ALARMS ON AND AUDIBLE. NO DISTRESS NOTED. PATIENT STABLE. WILL MONITOR. Addendum: 09/02/18 at 2034 by BRIEN NEAL RT Amended: Links added.
[2018-09-03] MEDS: ALBUTEROL FS 2.5 MG/3 ML VIAL.NEB NEB SCH ×4 (01:37→19:58)
[2018-09-03] MEDS: DEXILANT 30 MG GT SCH (05:16)
[2018-09-03] MEDS: GABAPENTIN 300 MG CAPSULE GT SCH ×3 (05:16→20:31)
[2018-09-03] MEDS: BLOOD SUGAR DIAGNOSTIC 1 EACH STRIP IN SCH ×2 (05:16→17:23)
[2018-09-03] MEDS: INSULIN REGULAR, HUMAN 100 UNIT/ML 3 ML VIAL SQ PRN (05:17)
[2018-09-03 06:50] LABS: BASOPHILS # (AUTO) 0.1 /CMM (0.0-0.2); BASOPHILS % (AUTO) 0.7 % (0.0-2.0); EOSINOPHILS % (AUTO) 5.2 % (0.0-6.0); HEMATOCRIT 24 % (33-45); HEMOGLOBIN 8.1 g/dL (11.5-14.8); LYMPHOCYTES # (AUTO) 3.6 /CMM (0.8-4.8); LYMPHOCYTES % (AUTO) 31.9 % (20.0-44.0); MEAN CORPUSCULAR HGB CONC 34 g/dl (31.0-36.0); MEAN CORPUSCULAR VOLUME 100 fL (82-100); MONOCYTES % (AUTO) 9.3 % (2.0-12.0); NEUTROPHILS % (AUTO) 52.9 % (43.0-81.0); PLATELET COUNT (AUTO) 277 /CMM (150-450); RED BLOOD CELL COUNT(AUTO) 2.36 MIL/uL (4.0-5.2); WHITE BLOOD COUNT (AUTO) 11.3 K/uL (4.3-11.0)
[2018-09-03 07:16] LABS: CALCIUM, SERUM 8.6 mg/dL (8.5-10.1); CREATININE 1.8 mg/dL (0.6-1.3); POTASSIUM 3.3 mmol/L (3.5-5.1)
[2018-09-03 07:49] VITALS: BP 126/70
--- NOTE | 2018-09-03 07:51 | NUR ---
Received female trach pt unlabored on a mechanical vent. Pt trach is secure. Vent is plugged into a red outlet, alarms are set and audible, and BMV is at bedside. Addendum: 09/03/18 at 0752 by MARKIE PINO RT Amended: Links added.
[2018-09-03] MEDS: SIMETHICONE SUSP 40 MG/0.6 ML BOTTLE GT SCH ×2 (08:00→19:53)
[2018-09-03] MEDS: HYDROGEN PEROXIDE 480 ML BOTTLE TP SCH ×2 (09:00→20:31)
[2018-09-03] MEDS: [UNRECOGNIZED DRUG - OTHER] TP SCH ×2 (09:00→20:31)
[2018-09-03] MEDS: TRILEPTAL GT SCH ×2 (09:00→20:31)
[2018-09-03] MEDS: VIT A TP SCH ×2 (09:00→20:31)
[2018-09-03] MEDS: DOCUSATE SODIUM LIQ 100 MG/10 ML UDC GT SCH (09:00)
[2018-09-03] MEDS: Z GUARD REMEDY 4 OZ OINT TP SCH ×2 (09:00→20:31)
[2018-09-03] MEDS: MULTIVIT W/MINERALS 1 TAB TABLET GT SCH (09:00)
[2018-09-03] MEDS: TRIAMCINOLONE ACETONIDE 0.025% 15 GM TUBE TP SCH ×2 (09:00→20:31)
[2018-09-03] MEDS: NYSTATIN TOP POWDER 15 GM BOTTLE TP SCH ×2 (09:00→20:31)
[2018-09-03] MEDS: ACIDOPHILUS/BULGARICUS 1 EACH TAB.CHEW GT SCH ×2 (09:00→16:46)
[2018-09-03] MEDS: PROSOURCE DIETARY LIQUID 30 ML LIQUID GT SCH ×2 (09:00→16:46)
[2018-09-03] MEDS: LEVETIRACETAM SOL (5 ML) 100 MG/ML UDC GT SCH ×2 (09:00→20:31)
[2018-09-03] MEDS: FERROUS SULFATE - FOR SA ONLY 330 MG/7.5 ML UDC GT SCH ×2 (09:00→16:46)
[2018-09-03] MEDS: CALCIUM CARBONATE 500 MG TAB.CHEW GT SCH ×2 (09:00→16:46)
--- NOTE | 2018-09-03 11:00 | NUR ---
Reported CBC and BMP result with Dr Luis with new order to keep IVF and give KCL 40 meq via GT x 1. Beckie informed.
[2018-09-03] MEDS ORDERED: POTASSIUM CHLORIDE 20 MEQ POWDER PACKET GT ONE (11:30)
--- NOTE | 2018-09-03 15:00 | NUR ---
INTERDISCIPLINARY PLAN OF CARE CONFERENCE was held today. Resident's sister Beckie Chu attended today's IDT meeting. Dr. Felix and the interdisciplinary team discussed the current plan of care in detail. Current orders as well as treatments and medications were reviewed. Patient with several seizure episode (08/16, 08/17, 08/31, 09/01), neurologist has been notified who ordered labs. Patient currently on IVF of 1/2 NS at 80 cc/hr due to elevated BUN and Creatinine. Patient completed IV ATB for UTI. Recent BMP shows low K+ 3.3, Na= 135, BUN 47, Creat 1.8. Dr. Luis ordered KCl 40 meq and to continue with IVF. Resident's sister pleased with patients skin condition. Ventilator weaning was attempted, patient tolerate it for a couple of days however she had an episode of respiratory distress on 08/17 and was placed back on full ventilator support. Dr. Felix said to follow-up with neurologist on Thursday. Endorsed.
[2018-09-03 19:35] VITALS: BP 143/75
[2018-09-03] MEDS: MAGNESIUM HYDROXIDE 30 ML UDC GT PRN (19:53)
[2018-09-03] MEDS: ASCORBIC ACID 500 MG TABLET GT SCH (20:31)
[2018-09-04] MEDS: ALBUTEROL FS 2.5 MG/3 ML VIAL.NEB NEB SCH ×4 (01:56→19:26)
[2018-09-04] MEDS: GABAPENTIN 300 MG CAPSULE GT SCH ×3 (05:15→20:22)
[2018-09-04] MEDS: GLUCERNA 1.2 1,000 ML BOTTLE GT PRN (05:15)
[2018-09-04] MEDS: BLOOD SUGAR DIAGNOSTIC 1 EACH STRIP IN SCH ×2 (05:15→18:41)
[2018-09-04] MEDS: DEXILANT 30 MG GT SCH (05:15)
[2018-09-04] MEDS: INSULIN REGULAR, HUMAN 100 UNIT/ML 3 ML VIAL SQ PRN ×2 (05:16→18:41)
[2018-09-04 07:37] VITALS: BP 119/75
[2018-09-04] MEDS: SIMETHICONE SUSP 40 MG/0.6 ML BOTTLE GT SCH ×2 (08:00→20:22)
[2018-09-04] MEDS: TRIAMCINOLONE ACETONIDE 0.025% 15 GM TUBE TP SCH ×2 (09:00→20:22)
[2018-09-04] MEDS: VIT A TP SCH ×2 (09:00→20:22)
[2018-09-04] MEDS: Z GUARD REMEDY 4 OZ OINT TP SCH ×2 (09:00→20:23)
[2018-09-04] MEDS: NYSTATIN TOP POWDER 15 GM BOTTLE TP SCH ×2 (09:00→20:22)
[2018-09-04] MEDS: HYDROGEN PEROXIDE 480 ML BOTTLE TP SCH ×2 (09:00→20:22)
[2018-09-04] MEDS: [UNRECOGNIZED DRUG - OTHER] TP SCH ×2 (09:00→20:22)
--- NOTE | 2018-09-04 09:05 | NUR ---
RT PATIENT REC'D TRACHED ON MECHANICAL VENTILATION. AMBU BAG/BACK UP TRACH BY BEDSIDE. TX GIVEN, NO ADVERSE REACTIONS NOTED. SX DONE WITH SMALL THICK PALE-YELLOW SECRETIONS, TRACH SECURED AND PATENT. ALARMS ON AND AUDIBLE. VENT PLUGGED IN RED OUTLET. NO RESPIRATORY DISTRESS NOTED AT THIS TIME. PATIENT STABLE. WILL CONTINUE TO MONITOR. Addendum: 09/04/18 at 0906 by MARCO FRANCOIS RT Amended: Links added.
[2018-09-04] MEDS: DOCUSATE SODIUM LIQ 100 MG/10 ML UDC GT SCH (09:34)
[2018-09-04] MEDS: FERROUS SULFATE - FOR SA ONLY 330 MG/7.5 ML UDC GT SCH ×2 (09:34→16:37)
[2018-09-04] MEDS: MULTIVIT W/MINERALS 1 TAB TABLET GT SCH (09:36)
[2018-09-04] MEDS: TRILEPTAL GT SCH ×2 (09:36→20:22)
[2018-09-04] MEDS: PROSOURCE DIETARY LIQUID 30 ML LIQUID GT SCH ×2 (09:36→16:38)
[2018-09-04] MEDS: ACIDOPHILUS/BULGARICUS 1 EACH TAB.CHEW GT SCH ×2 (09:36→16:38)
[2018-09-04] MEDS: LEVETIRACETAM SOL (5 ML) 100 MG/ML UDC GT SCH ×2 (09:36→20:22)
[2018-09-04] MEDS: CALCIUM CARBONATE 500 MG TAB.CHEW GT SCH ×2 (09:37→16:38)
[2018-09-04] MEDS: IV 1/2NS 1000 ML 1,000 ML IV PRN ×2 (15:26→21:08)
--- NOTE | 2018-09-04 16:30 | NUR ---
Informed Dr. Montaño that neurologist has not seen patient yet and said that he will follow it up with neurologist on Thursday. Resident stable no episode of seizure, responsive and follows command.
[2018-09-04 19:48] VITALS: BP 142/71
[2018-09-04] MEDS: ASCORBIC ACID 500 MG TABLET GT SCH (20:22)
--- NOTE | 2018-09-04 21:27 | NUR ---
RT NOTE PATIENT WAS RECEIVED ON CONTINUOUS VENT SUPPORT ON NOTED VENT SETTINGS. HHN INLINE TREATMENT WAS GIVEN, NO ADVERSE REACTION NOTED ,PRN SUCTION WAS DONE. TRACH TUBE PATENT AND SECURED. ALARMS ON AND AUDIBLE. GRAYSON AND CAITLYN LAMBERT AT [facility]. WILL CONTINUE TO MONITOR PATIENT Addendum: 09/04/18 at 2127 by DIEGO BRADY RT Amended: Links added.
[2018-09-05] MEDS: ALBUTEROL FS 2.5 MG/3 ML VIAL.NEB NEB SCH ×4 (01:13→19:24)
[2018-09-05] MEDS: GLUCERNA 1.2 1,000 ML BOTTLE GT PRN (04:53)
[2018-09-05] MEDS: GABAPENTIN 300 MG CAPSULE GT SCH ×3 (04:53→20:37)
[2018-09-05] MEDS: BLOOD SUGAR DIAGNOSTIC 1 EACH STRIP IN SCH ×2 (05:08→18:30)
[2018-09-05] MEDS: INSULIN REGULAR, HUMAN 100 UNIT/ML 3 ML VIAL SQ PRN ×2 (05:08→18:31)
[2018-09-05] MEDS: DEXILANT 30 MG GT SCH (05:08)
[2018-09-05 07:35] VITALS: BP 122/54
[2018-09-05] MEDS: SIMETHICONE SUSP 40 MG/0.6 ML BOTTLE GT SCH ×2 (08:00→20:37)
[2018-09-05] MEDS: PROSOURCE DIETARY LIQUID 30 ML LIQUID GT SCH ×2 (09:00→16:56)
[2018-09-05] MEDS: MULTIVIT W/MINERALS 1 TAB TABLET GT SCH (09:00)
[2018-09-05] MEDS: CALCIUM CARBONATE 500 MG TAB.CHEW GT SCH ×2 (09:00→16:56)
[2018-09-05] MEDS: HYDROGEN PEROXIDE 480 ML BOTTLE TP SCH ×2 (09:00→20:39)
[2018-09-05] MEDS: [UNRECOGNIZED DRUG - OTHER] TP SCH ×2 (09:00→20:39)
[2018-09-05] MEDS: VIT A TP SCH ×2 (09:00→20:39)
[2018-09-05] MEDS: TRILEPTAL GT SCH ×2 (09:00→20:37)
[2018-09-05] MEDS: Z GUARD REMEDY 4 OZ OINT TP SCH ×2 (09:00→20:39)
[2018-09-05] MEDS: NYSTATIN TOP POWDER 15 GM BOTTLE TP SCH ×2 (09:00→20:39)
[2018-09-05] MEDS: TRIAMCINOLONE ACETONIDE 0.025% 15 GM TUBE TP SCH ×2 (09:00→20:38)
[2018-09-05] MEDS: ACIDOPHILUS/BULGARICUS 1 EACH TAB.CHEW GT SCH ×2 (09:58→16:56)
[2018-09-05] MEDS: LEVETIRACETAM SOL (5 ML) 100 MG/ML UDC GT SCH ×2 (09:58→20:37)
[2018-09-05] MEDS: DOCUSATE SODIUM LIQ 100 MG/10 ML UDC GT SCH (09:58)
[2018-09-05] MEDS: FERROUS SULFATE - FOR SA ONLY 330 MG/7.5 ML UDC GT SCH ×2 (09:58→16:55)
--- NOTE | 2018-09-05 14:45 | NUR ---
Called Dr. Hathaway (economic manager for DR. Montaño) regarding UA C and S results, E. Coli ESBL, He wants to call ID (Gertrude).
--- NOTE | 2018-09-05 15:00 | NUR ---
Called Ms. Loredo and notified her of UA C and S results, E Coli ESBL, Patients' latest temp 97.8, urine color is yellow. `
--- NOTE | 2018-09-05 16:50 | NUR ---
Ms. Loredo ordered to start Amikacin IV PER PHARMACY TO DOSE. Patients' sister Beckie called and notified that IV ATB will be started per MD ordered. Faxed to [facility] pharmacy and [facility] too. Noted and carried out.
--- NOTE | 2018-09-05 18:00 | NUR ---
Called [facility] pharmacy and spoke to Melissa, dimas wilhelm to give Amikacin 500 mg IVPB LOADING DOSE to get it from E kit, and to start amikacin 250 mg IVPB q 12 hrs 0900 and 2100 x 5 days, trough with BUN, Creat on september 08 829. Noted and carried out.
[2018-09-05] MEDS ORDERED: AMIKACIN 500 MG in IV D5W 100 ML IV ONE (18:30)
--- NOTE | 2018-09-05 20:00 | NUR ---
RN NOTES Seen and examined by Dr. Montaño with new order for CMP in am.
[2018-09-05 20:20] VITALS: BP 127/68
[2018-09-05] MEDS: ASCORBIC ACID 500 MG TABLET GT SCH (20:37)
[2018-09-06] MEDS: IV 1/2NS 1000 ML 1,000 ML IV PRN ×2 (01:00→13:34)
[2018-09-06] MEDS: ALBUTEROL FS 2.5 MG/3 ML VIAL.NEB NEB SCH ×4 (01:51→19:28)
[2018-09-06] MEDS: GLUCERNA 1.2 1,000 ML BOTTLE GT PRN (04:26)
[2018-09-06] MEDS: GABAPENTIN 300 MG CAPSULE GT SCH ×3 (05:00→21:23)
[2018-09-06] MEDS: INSULIN REGULAR, HUMAN 100 UNIT/ML 3 ML VIAL SQ PRN ×2 (06:13→17:24)
[2018-09-06] MEDS: DEXILANT 30 MG GT SCH (06:13)
[2018-09-06] MEDS: BLOOD SUGAR DIAGNOSTIC 1 EACH STRIP IN SCH ×2 (06:13→17:23)
[2018-09-06 06:53] LABS: ALBUMIN 2.4 g/dL (3.4-5.0); BILIRUBIN,TOTAL 0.2 mg/dL (0.2-1.0); CALCIUM, SERUM 8.6 mg/dL (8.5-10.1); CREATININE 1.7 mg/dL (0.6-1.3); POTASSIUM 3.2 mmol/L (3.5-5.1); TOTAL PROTEIN, SERUM 7.8 g/dL (6.4-8.2)
[2018-09-06 07:38] VITALS: BP 120/54
[2018-09-06] MEDS: SIMETHICONE SUSP 40 MG/0.6 ML BOTTLE GT SCH ×2 (08:00→20:00)
[2018-09-06] MEDS: [UNRECOGNIZED DRUG - OTHER] TP SCH ×2 (09:00→21:24)
[2018-09-06] MEDS: FERROUS SULFATE - FOR SA ONLY 330 MG/7.5 ML UDC GT SCH ×2 (09:00→17:23)
[2018-09-06] MEDS: CALCIUM CARBONATE 500 MG TAB.CHEW GT SCH ×2 (09:00→17:23)
[2018-09-06] MEDS: LEVETIRACETAM SOL (5 ML) 100 MG/ML UDC GT SCH ×2 (09:00→21:23)
[2018-09-06] MEDS: AMIKACIN 250 MG in IV D5W 100 ML IV SCH ×2 (09:00→21:00)
[2018-09-06] MEDS: Z GUARD REMEDY 4 OZ OINT TP SCH ×2 (09:00→21:24)
[2018-09-06] MEDS: ACIDOPHILUS/BULGARICUS 1 EACH TAB.CHEW GT SCH ×2 (09:00→17:23)
[2018-09-06] MEDS: PROSOURCE DIETARY LIQUID 30 ML LIQUID GT SCH ×2 (09:00→17:23)
[2018-09-06] MEDS: HYDROGEN PEROXIDE 480 ML BOTTLE TP SCH ×2 (09:00→21:24)
[2018-09-06] MEDS: VIT A TP SCH ×2 (09:00→21:24)
[2018-09-06] MEDS: MULTIVIT W/MINERALS 1 TAB TABLET GT SCH (09:00)
[2018-09-06] MEDS: TRILEPTAL GT SCH ×2 (09:00→21:23)
[2018-09-06] MEDS: DOCUSATE SODIUM LIQ 100 MG/10 ML UDC GT SCH (09:00)
[2018-09-06] MEDS: TRIAMCINOLONE ACETONIDE 0.025% 15 GM TUBE TP SCH ×2 (09:00→21:24)
[2018-09-06] MEDS: NYSTATIN TOP POWDER 15 GM BOTTLE TP SCH ×2 (09:00→21:24)
[2018-09-06] MEDS ORDERED: POTASSIUM CHLORIDE 20 MEQ POWDER PACKET GT SCH (10:30)
--- NOTE | 2018-09-06 10:40 | NUR ---
Received order to give Potassium Chloride 30 mEq via GT x 1 for hypokalemia, BMP on 09/07/18. Addendum: 09/06/18 at 1252 by SARITA GOMEZ RN Informed pt's sister Beckie.
--- NOTE | 2018-09-06 13:32 | NUR ---
Dr. Luis informed SW he did not do the teeth cleaning today because pt's sister was not present. The appointment will be rescheduled.
--- NOTE | 2018-09-06 15:30 | NUR ---
Called Dr Malave's office and spoke with Anayeli. She said Dr Malave is seeing a pt right now but will go to [facility] this afternoon. Left message with her for Dr Malave to see pt.
--- NOTE | 2018-09-06 16:40 | NUR ---
pt rec'd trached on [facility] vent on ac mode. no resp distress or sob noted. trach patent and secured. sx'd for mod amt of pale yellow secretions. alarms are set and audible. vent plugged into red outlet. ambu bag bedside. will continue to monitor. Addendum: 09/06/18 at 1650 by LADAN WICK RT Amended: Links added.
--- NOTE | 2018-09-06 18:51 | NUR ---
Seen and examined by Dr Malave. He assessed pt and she was able to follow simple commands. Informed him that pt has been observed with both petit mal and grand mal seizures. He reviewed pt's medications. No new order at this time.
[2018-09-06 20:41] VITALS: BP 114/62
[2018-09-06] MEDS: ASCORBIC ACID 500 MG TABLET GT SCH (21:23)
[2018-09-07] MEDS: ALBUTEROL FS 2.5 MG/3 ML VIAL.NEB NEB SCH ×4 (01:16→19:28)
[2018-09-07] MEDS: IV 1/2NS 1000 ML 1,000 ML IV PRN (02:00)
[2018-09-07] MEDS: BLOOD SUGAR DIAGNOSTIC 1 EACH STRIP IN SCH ×2 (05:32→17:18)
[2018-09-07] MEDS: GABAPENTIN 300 MG CAPSULE GT SCH ×3 (05:32→21:00)
[2018-09-07] MEDS: DEXILANT 30 MG GT SCH (05:32)
[2018-09-07 06:58] LABS: CALCIUM, SERUM 8.6 mg/dL (8.5-10.1); CREATININE 1.7 mg/dL (0.6-1.3); POTASSIUM 3.4 mmol/L (3.5-5.1)
[2018-09-07] MEDS: VIT A TP SCH ×2 (09:00→21:00)
[2018-09-07] MEDS: HYDROGEN PEROXIDE 480 ML BOTTLE TP SCH ×2 (09:00→21:00)
[2018-09-07] MEDS: Z GUARD REMEDY 4 OZ OINT TP SCH ×2 (09:00→21:00)
[2018-09-07] MEDS: AMIKACIN 250 MG in IV D5W 100 ML IV SCH ×2 (09:00→21:00)
[2018-09-07] MEDS: TRIAMCINOLONE ACETONIDE 0.025% 15 GM TUBE TP SCH ×2 (09:00→21:00)
[2018-09-07] MEDS: NYSTATIN TOP POWDER 15 GM BOTTLE TP SCH ×2 (09:00→21:00)
[2018-09-07] MEDS: [UNRECOGNIZED DRUG - OTHER] TP SCH ×2 (09:00→21:00)
[2018-09-07] MEDS: SIMETHICONE SUSP 40 MG/0.6 ML BOTTLE GT SCH ×2 (09:54→20:00)
[2018-09-07] MEDS: CALCIUM CARBONATE 500 MG TAB.CHEW GT SCH ×2 (09:54→17:18)
[2018-09-07] MEDS: PROSOURCE DIETARY LIQUID 30 ML LIQUID GT SCH ×2 (09:54→17:18)
[2018-09-07] MEDS: ACIDOPHILUS/BULGARICUS 1 EACH TAB.CHEW GT SCH ×2 (09:54→17:18)
[2018-09-07] MEDS: LEVETIRACETAM SOL (5 ML) 100 MG/ML UDC GT SCH ×2 (09:54→21:00)
[2018-09-07] MEDS: MULTIVIT W/MINERALS 1 TAB TABLET GT SCH (09:54)
[2018-09-07] MEDS: FERROUS SULFATE - FOR SA ONLY 330 MG/7.5 ML UDC GT SCH ×2 (09:54→17:18)
[2018-09-07] MEDS: DOCUSATE SODIUM LIQ 100 MG/10 ML UDC GT SCH (09:54)
[2018-09-07] MEDS: TRILEPTAL GT SCH ×2 (09:54→21:00)
[2018-09-07] MEDS ORDERED: POTASSIUM CHLORIDE 20 MEQ POWDER PACKET GT ONE (10:30)
[2018-09-07 10:52] VITALS: BP 137/69
--- NOTE | 2018-09-07 11:01 | NUR ---
SEEN AND EXAMINED BY DR. FLORES WITH NEW ORDERS. LAB VALUES WERE RELATED. NEW ORDERS 1. POTASSIUM CHLORIDE 40MEQ VIA GT ONLY 1 DOSE FOR HYPOKALEMIA, AND 2. CONTINUE 1/2 NS AT 80 ML/HR IV X2 MORE DAYS FOR HYDRATION, ORDERS CARRIED OUT AND SISTER MADE AWARE.
[2018-09-07] MEDS: GLUCERNA 1.2 1,000 ML BOTTLE GT PRN (14:54)
--- NOTE | 2018-09-07 16:07 | NUR ---
Pt's right great toe appears to have an ingrown toenail. Informed Dr Naik. He said he will see pt on Thursday09/10/18. Notified Beckie.
[2018-09-07] MEDS: INSULIN REGULAR, HUMAN 100 UNIT/ML 3 ML VIAL SQ PRN (17:18)
[2018-09-07 20:33] VITALS: BP 127/67
[2018-09-07] MEDS ORDERED: DIATR MEGLU/DIATRIZOATE SODIUM 30 ML BOTTLE (GASTROGRAPHIN) ONE (20:37)
[2018-09-07] MEDS: ASCORBIC ACID 500 MG TABLET GT SCH (21:00)
[2018-09-08] MEDS: ALBUTEROL FS 2.5 MG/3 ML VIAL.NEB NEB SCH ×4 (01:41→19:29)
[2018-09-08] MEDS: IV 1/2NS 1000 ML 1,000 ML IV PRN ×2 (02:00→23:51)
[2018-09-08] MEDS: GABAPENTIN 300 MG CAPSULE GT SCH ×3 (05:42→20:12)
[2018-09-08] MEDS: DEXILANT 30 MG GT SCH (05:43)
[2018-09-08] MEDS: BLOOD SUGAR DIAGNOSTIC 1 EACH STRIP IN SCH ×2 (05:43→18:10)
[2018-09-08 07:42] VITALS: BP 118/69
[2018-09-08] MEDS: ACIDOPHILUS/BULGARICUS 1 EACH TAB.CHEW GT SCH ×2 (08:16→16:45)
[2018-09-08] MEDS: SIMETHICONE SUSP 40 MG/0.6 ML BOTTLE GT SCH ×2 (08:16→20:12)
[2018-09-08] MEDS: TRILEPTAL GT SCH ×2 (08:16→20:12)
[2018-09-08] MEDS: DOCUSATE SODIUM LIQ 100 MG/10 ML UDC GT SCH (08:16)
[2018-09-08] MEDS: CALCIUM CARBONATE 500 MG TAB.CHEW GT SCH ×2 (08:16→16:45)
[2018-09-08] MEDS: LEVETIRACETAM SOL (5 ML) 100 MG/ML UDC GT SCH ×2 (08:16→20:12)
[2018-09-08] MEDS: FERROUS SULFATE - FOR SA ONLY 330 MG/7.5 ML UDC GT SCH ×2 (08:16→16:45)
[2018-09-08] MEDS: MULTIVIT W/MINERALS 1 TAB TABLET GT SCH (08:16)
[2018-09-08] MEDS: PROSOURCE DIETARY LIQUID 30 ML LIQUID GT SCH ×2 (08:16→16:45)
[2018-09-08] MEDS: TRIAMCINOLONE ACETONIDE 0.025% 15 GM TUBE TP SCH ×2 (09:00→20:12)
[2018-09-08] MEDS: [UNRECOGNIZED DRUG - OTHER] TP SCH ×2 (09:00→20:13)
[2018-09-08] MEDS: Z GUARD REMEDY 4 OZ OINT TP SCH ×2 (09:00→20:13)
[2018-09-08] MEDS: VIT A TP SCH ×2 (09:00→20:13)
[2018-09-08] MEDS: AMIKACIN 250 MG in IV D5W 100 ML IV SCH ×2 (09:00→21:00)
[2018-09-08] MEDS: HYDROGEN PEROXIDE 480 ML BOTTLE TP SCH ×2 (09:00→20:13)
[2018-09-08] MEDS: NYSTATIN TOP POWDER 15 GM BOTTLE TP SCH ×2 (09:00→20:13)
--- NOTE | 2018-09-08 12:16 | NUR ---
Notified Dr. Luis patient has no IV access, R foot access swollen. Attempted several times to insert in the lower extremities but unsuccessful. Patient's sister at bedside prefers to have IV in the lower extremities but agreed to have a midline inserted. Dr. Luis gave an order for midline insertion. Resident's sister prefers to be around for midline insertion but she has to leave so she said to place the line either arm which ever they can find an access. Patient currently on IV hydration and IV ATB. Addendum: 09/08/18 at 1834 by TAMMY FLEMING RN 1230: Nursing documentation supervisor notified.
--- NOTE | 2018-09-08 12:23 | NUR ---
Notified Brandan, IV pharmacist and made him aware that patient has no IV access at this time and unable to give the 0900 AM dose and Amikacin trough result is pending. He said to call IV pharmacist once a line is available.
--- NOTE | 2018-09-08 12:38 | NUR ---
Received a new order per Dr. Luis 1. may have midline insertion. 2. May flush midline w/10 cc of normal saline every shift for softlines supervisor. 3. Change midline dressing every week and PRN if soiled. Order carried out and responsible alliance party aware.
--- NOTE | 2018-09-08 16:50 | NUR ---
Per nursing supervisor fireworks assembly, Midline line nurse is on his way.
--- NOTE | 2018-09-08 18:06 | NUR ---
Received a critical Amikacin level 11.1 from [facility] c/o Araceli. Notified [facility] IV pharmacist, spoke with Doc with order to hold dose and draw a random Amikacin level on 09/10/18. Clarified stop date of Amikacin with NAN Loredo she said to give a total of 7 days. Orders carried out.
[2018-09-08] MEDS: GLUCERNA 1.2 1,000 ML BOTTLE GT PRN (18:10)
--- NOTE | 2018-09-08 18:15 | NUR ---
Midline inserted in the R arm G# 18 by midline nurse. Patient tolerated procedure. Informed resident's sister Beckie that midline inserted in the R arm, Amikacin not given, trough level 11.1, patient continue on IVF, sister appreciated the update given.
[2018-09-08] MEDS: ASCORBIC ACID 500 MG TABLET GT SCH (20:12)
[2018-09-08 20:40] VITALS: BP 114/59
[2018-09-09] MEDS: GLUCERNA 1.2 1,000 ML BOTTLE GT PRN (00:46)
[2018-09-09] MEDS: ALBUTEROL FS 2.5 MG/3 ML VIAL.NEB NEB SCH ×4 (01:29→19:33)
[2018-09-09] MEDS: DEXILANT 30 MG GT SCH (05:14)
[2018-09-09] MEDS: GABAPENTIN 300 MG CAPSULE GT SCH ×3 (05:14→21:03)
[2018-09-09] MEDS: INSULIN REGULAR, HUMAN 100 UNIT/ML 3 ML VIAL SQ PRN (06:12)
[2018-09-09] MEDS: BLOOD SUGAR DIAGNOSTIC 1 EACH STRIP IN SCH ×2 (06:12→17:30)
[2018-09-09] MEDS: SIMETHICONE SUSP 40 MG/0.6 ML BOTTLE GT SCH ×2 (08:00→20:00)
[2018-09-09 08:16] VITALS: BP 100/57
[2018-09-09] MEDS: FERROUS SULFATE - FOR SA ONLY 330 MG/7.5 ML UDC GT SCH ×2 (09:00→17:30)
[2018-09-09] MEDS: HYDROGEN PEROXIDE 480 ML BOTTLE TP SCH ×2 (09:00→21:03)
[2018-09-09] MEDS: MULTIVIT W/MINERALS 1 TAB TABLET GT SCH (09:00)
[2018-09-09] MEDS: Z GUARD REMEDY 4 OZ OINT TP SCH ×2 (09:00→21:04)
[2018-09-09] MEDS: CALCIUM CARBONATE 500 MG TAB.CHEW GT SCH ×2 (09:00→17:30)
[2018-09-09] MEDS: AMIKACIN 250 MG in IV D5W 100 ML IV SCH ×2 (09:00→21:00)
[2018-09-09] MEDS: LEVETIRACETAM SOL (5 ML) 100 MG/ML UDC GT SCH ×2 (09:00→21:03)
[2018-09-09] MEDS: DOCUSATE SODIUM LIQ 100 MG/10 ML UDC GT SCH (09:00)
[2018-09-09] MEDS: TRILEPTAL GT SCH ×2 (09:00→21:03)
[2018-09-09] MEDS: ACIDOPHILUS/BULGARICUS 1 EACH TAB.CHEW GT SCH ×2 (09:00→17:30)
[2018-09-09] MEDS: PROSOURCE DIETARY LIQUID 30 ML LIQUID GT SCH ×2 (09:00→17:30)
[2018-09-09] MEDS: VIT A TP SCH ×2 (09:00→21:03)
[2018-09-09] MEDS: [UNRECOGNIZED DRUG - OTHER] TP SCH ×2 (09:00→21:03)
--- NOTE | 2018-09-09 09:00 | NUR ---
Amikacin IV held d/t elevated Amikacin trough. Random Amikacin trough, BUN, crea on 09/10/18.
--- NOTE | 2018-09-09 14:00 | NUR ---
Resident noted with open skin on her right lower leg, with small amount of bleeding noted. No s/s of pain. Treatment initiated. Beckie Chu (sister) informed. Will continue to monitor.
--- NOTE | 2018-09-09 19:33 | NUR ---
RT NOTE: RECEIVED TRACH PT ON [facility] VENT ON NOTED SETTINGS PER MD ORDERS. TRACH IS PATENT AND SECURED. RADIO COMMUNICATIONS SUPERINTENDENT DONE. Q6 BREATHING TX GIVEN WITH NO ADVERSE REACTION NOTED. SX DONE PRN. VENT PLUGGED INTO RED OUTLET. ALARMS ON AND AUDIBLE. NEVA BAG @ BEDSIDE. NO RESP DISTRESS AT THIS TIME. WILL CONT TO MONITOR PT. Addendum: 09/10/18 at 0206 by QIANA MARY RT Amended: Links added.
[2018-09-09 19:53] VITALS: BP 126/66
[2018-09-09] MEDS: ASCORBIC ACID 500 MG TABLET GT SCH (21:03)
[2018-09-09] MEDS: NEOMY SULF/BACITRAC ZN/POLY 15 GM TUBE TP SCH (21:04)
[2018-09-10] MEDS: ALBUTEROL FS 2.5 MG/3 ML VIAL.NEB NEB SCH ×4 (00:51→19:43)
[2018-09-10] MEDS: DEXILANT 30 MG GT SCH (05:32)
[2018-09-10] MEDS: GLUCERNA 1.2 1,000 ML BOTTLE GT PRN (05:32)
[2018-09-10] MEDS: GABAPENTIN 300 MG CAPSULE GT SCH ×3 (05:32→20:00)
[2018-09-10] MEDS: BLOOD SUGAR DIAGNOSTIC 1 EACH STRIP IN SCH ×2 (05:32→17:15)
[2018-09-10] MEDS: INSULIN REGULAR, HUMAN 100 UNIT/ML 3 ML VIAL SQ PRN (05:32)
[2018-09-10 06:15] LABS: CALCIUM, SERUM 9.1 mg/dL (8.5-10.1); CREATININE 1.9 mg/dL (0.6-1.3); POTASSIUM 3.8 mmol/L (3.5-5.1)
[2018-09-10 07:32] VITALS: BP 124/66
[2018-09-10] MEDS: SIMETHICONE SUSP 40 MG/0.6 ML BOTTLE GT SCH ×2 (08:00→20:01)
[2018-09-10] MEDS: ACIDOPHILUS/BULGARICUS 1 EACH TAB.CHEW GT SCH ×2 (09:26→17:15)
[2018-09-10] MEDS: MULTIVIT W/MINERALS 1 TAB TABLET GT SCH (09:26)
[2018-09-10] MEDS: TRILEPTAL GT SCH ×2 (09:26→20:01)
[2018-09-10] MEDS: VIT A TP SCH ×2 (09:26→20:01)
[2018-09-10] MEDS: CALCIUM CARBONATE 500 MG TAB.CHEW GT SCH ×2 (09:26→17:15)
[2018-09-10] MEDS: FERROUS SULFATE - FOR SA ONLY 330 MG/7.5 ML UDC GT SCH ×2 (09:26→17:15)
[2018-09-10] MEDS: Z GUARD REMEDY 4 OZ OINT TP SCH ×2 (09:26→21:15)
[2018-09-10] MEDS: PROSOURCE DIETARY LIQUID 30 ML LIQUID GT SCH ×2 (09:26→17:15)
[2018-09-10] MEDS: NEOMY SULF/BACITRAC ZN/POLY 15 GM TUBE TP SCH ×2 (09:26→21:15)
[2018-09-10] MEDS: DOCUSATE SODIUM LIQ 100 MG/10 ML UDC GT SCH (09:26)
[2018-09-10] MEDS: [UNRECOGNIZED DRUG - OTHER] TP SCH ×2 (09:26→20:01)
[2018-09-10] MEDS: HYDROGEN PEROXIDE 480 ML BOTTLE TP SCH ×2 (09:26→21:15)
[2018-09-10] MEDS: LEVETIRACETAM SOL (5 ML) 100 MG/ML UDC GT SCH ×2 (09:26→20:01)
--- NOTE | 2018-09-10 10:03 | NUR ---
Seen and examined by Dr. Luis, made aware that patient has 10.4 lbs weight gain and abdomen distended. Dr. Luis assessed patient, with order to do abdominal KUB. Patient still continue on IV ATB Amikacin but on hold at the moment pending random Amikacin trough level. Resident's sister notified.
--- NOTE | 2018-09-10 12:04 | NUR ---
Resident received on CMV, tolerating current settings well, No sob noted, vent checked, alarms on and audible, trach rube patent secured well, suction prn. Patient is stable at this time. Will monitor.
--- NOTE | 2018-09-10 14:40 | NUR ---
Referred patient's R great toe to Dr. De La Cruz renewable energy project manager. Patient's sister Beckie is concern of the R great toe ingrown nail and looks infected. According to Beckie she just want the renewable energy project manager take a look at the toenails and treat it. Dr. De La Cruz spoke with Beckie and obtain consent for partial nail avulsion of the R great toe. Patient tolerated procedure. No note facial grimacing. Treatment order written by renewable energy project manager. Order carried out.
[2018-09-10] MEDS: MUPIROCIN OINT 2% 22 GM TUBE TP SCH (15:00)
[2018-09-10] MEDS ORDERED: LIDOCAINE 1% INJ 50 ML MDV IJ ONE (15:00)
--- NOTE | 2018-09-10 16:11 | NUR ---
Left a message to Dr. Montaño regarding abdominal KUB result. Awaiting for order.
--- NOTE | 2018-09-10 17:00 | NUR ---
Amikacin random trough level ( <2.5) faxed to IV pharmacist. Awaiting for recommendations.
--- NOTE | 2018-09-10 18:40 | NUR ---
Received a call from MATTEO Torres pharmacist, she said to continue with Amikacin 250 mg. daily x 4 days to complete 7 day therapy. No more levels. Order carried out.
[2018-09-10 19:37] VITALS: BP 102/77
[2018-09-10] MEDS: ASCORBIC ACID 500 MG TABLET GT SCH (20:01)
--- NOTE | 2018-09-10 20:47 | NUR ---
RT PT REC'D TRACHED ON [facility] VENT ON NOTED SETTINGS PER MD ORDERS. TRACH IS PATENT AND SECURED. PRACTICE PERFORMANCE MANAGER DONE. TX GIVEN WITH NO ADVERSE REACTION NOTED. SX DONE PRN. VENT PLUGGED INTO RED OUTLET. ALARMS ON AND AUDIBLE. NEVA BAG @ BEDSIDE. NO RESP DISTRESS AT THIS TIME. WILL CONT TO MONITOR . Addendum: 09/10/18 at 2047 by MARCO FRANCOIS RT Amended: Links added.
[2018-09-10] MEDS: AMIKACIN 250 MG in IV D5W 100 ML IV SCH (21:20)
[2018-09-11] MEDS: ALBUTEROL FS 2.5 MG/3 ML VIAL.NEB NEB SCH ×4 (01:38→19:41)
[2018-09-11] MEDS: MUPIROCIN OINT 2% 22 GM TUBE TP SCH ×2 (03:09→15:00)
[2018-09-11] MEDS: GLUCERNA 1.2 1,000 ML BOTTLE GT PRN (04:53)
[2018-09-11] MEDS: DEXILANT 30 MG GT SCH (05:03)
[2018-09-11] MEDS: GABAPENTIN 300 MG CAPSULE GT SCH ×3 (05:03→20:41)
[2018-09-11] MEDS: BLOOD SUGAR DIAGNOSTIC 1 EACH STRIP IN SCH ×2 (05:12→17:55)
[2018-09-11 07:29] VITALS: BP 158/63
[2018-09-11] MEDS: SIMETHICONE SUSP 40 MG/0.6 ML BOTTLE GT SCH ×2 (08:00→20:41)
[2018-09-11] MEDS: DAKINS QUARTER STRENGTH (0.125%) 480 ML BOTTLE TOP SCH (09:00)
[2018-09-11] MEDS: NEOMY SULF/BACITRAC ZN/POLY 15 GM TUBE TP SCH ×2 (09:00→20:41)
[2018-09-11] MEDS: HYDROGEN PEROXIDE 480 ML BOTTLE TP SCH ×2 (09:00→20:41)
[2018-09-11] MEDS: [UNRECOGNIZED DRUG - OTHER] TP SCH ×2 (09:00→20:41)
[2018-09-11] MEDS: VIT A TP SCH ×2 (09:00→20:41)
[2018-09-11] MEDS: Z GUARD REMEDY 4 OZ OINT TP SCH ×2 (09:00→20:41)
[2018-09-11] MEDS: DOCUSATE SODIUM LIQ 100 MG/10 ML UDC GT SCH (09:03)
[2018-09-11] MEDS: ACIDOPHILUS/BULGARICUS 1 EACH TAB.CHEW GT SCH ×2 (09:03→17:54)
[2018-09-11] MEDS: LEVETIRACETAM SOL (5 ML) 100 MG/ML UDC GT SCH ×2 (09:03→20:41)
[2018-09-11] MEDS: TRILEPTAL GT SCH ×2 (09:03→20:41)
[2018-09-11] MEDS: FERROUS SULFATE - FOR SA ONLY 330 MG/7.5 ML UDC GT SCH ×2 (09:03→17:54)
[2018-09-11] MEDS: CALCIUM CARBONATE 500 MG TAB.CHEW GT SCH ×2 (09:05→17:55)
[2018-09-11] MEDS: MULTIVIT W/MINERALS 1 TAB TABLET GT SCH (09:05)
[2018-09-11] MEDS: PROSOURCE DIETARY LIQUID 30 ML LIQUID GT SCH ×2 (09:05→17:54)
--- NOTE | 2018-09-11 15:30 | NUR ---
Bourgeois-catheter changed as ordered due to previous catheter bypassing urine. Tolerated procedure well. No distress noted. With clear yellow urine.
[2018-09-11] MEDS: METOCLOPRAMIDE HCL 10 MG/10 ML UDC GT SCH ×2 (17:55→23:15)
--- NOTE | 2018-09-11 18:00 | NUR ---
KUB result shows ileus, Dr. Luis ordered Reglan 10mg. q 6 hours for gastroparesis. MD also referred it to Arlene Munoz, GI, NNO given. Left a message to Beckie, sister regarding new order.
[2018-09-11] MEDS: INSULIN REGULAR, HUMAN 100 UNIT/ML 3 ML VIAL SQ PRN (18:09)
[2018-09-11 19:39] VITALS: BP 119/70
[2018-09-11] MEDS: ASCORBIC ACID 500 MG TABLET GT SCH (20:41)
[2018-09-11] MEDS: AMIKACIN 250 MG in IV D5W 100 ML IV SCH (21:00)
[2018-09-12] MEDS: ALBUTEROL FS 2.5 MG/3 ML VIAL.NEB NEB SCH ×4 (01:35→19:12)
[2018-09-12] MEDS: MUPIROCIN OINT 2% 22 GM TUBE TP SCH ×2 (03:00→15:00)
[2018-09-12] MEDS: GABAPENTIN 300 MG CAPSULE GT SCH ×3 (04:55→20:10)
[2018-09-12] MEDS: DEXILANT 30 MG GT SCH (05:05)
[2018-09-12] MEDS: METOCLOPRAMIDE HCL 10 MG/10 ML UDC GT SCH ×3 (05:06→17:43)
[2018-09-12] MEDS: GLUCERNA 1.2 1,000 ML BOTTLE GT PRN ×2 (05:07→11:47)
[2018-09-12] MEDS: INSULIN REGULAR, HUMAN 100 UNIT/ML 3 ML VIAL SQ PRN (05:42)
[2018-09-12] MEDS: BLOOD SUGAR DIAGNOSTIC 1 EACH STRIP IN SCH ×2 (05:42→17:43)
[2018-09-12 07:51] VITALS: BP 118/65
--- NOTE | 2018-09-12 08:00 | NUR ---
RT PATIENT RECEIVED TRACH'D ON [facility] VENT WITH NOTED SETTINGS PER MD ORDER. SPEECH PROFESSOR DONE. TRACH SECURED AND PATENT. VENT PLUGGED INTO RED OUTLET. ALARMS ON AND FUNCTIONING PROPERLY. SPARE TRACH AND AMBU BAG AT HEAD OF BED. BREATHING TX'S GIVEN ORDERED. NO ADVERSE EFFECTS OBSERVED. SUCTIONED SMALL AMOUNTS OF THICK PALE, YELLOW SECRETIONS. NO SOB OR SIGNS OF DISTRESS NOTED AT THIS TIME. WILL CONTINUE TO MONITOR FOR ANY CHANGE OF CONDITION. Addendum: 09/12/18 at 1237 by YAMIL MARTINEZ RT Amended: Links added.
[2018-09-12] MEDS: FERROUS SULFATE - FOR SA ONLY 330 MG/7.5 ML UDC GT SCH ×2 (08:27→16:30)
[2018-09-12] MEDS: SIMETHICONE SUSP 40 MG/0.6 ML BOTTLE GT SCH ×2 (08:27→20:07)
[2018-09-12] MEDS: DOCUSATE SODIUM LIQ 100 MG/10 ML UDC GT SCH (08:27)
[2018-09-12] MEDS: PROSOURCE DIETARY LIQUID 30 ML LIQUID GT SCH ×2 (08:28→16:30)
[2018-09-12] MEDS: CALCIUM CARBONATE 500 MG TAB.CHEW GT SCH ×2 (08:28→16:30)
[2018-09-12] MEDS: ACIDOPHILUS/BULGARICUS 1 EACH TAB.CHEW GT SCH ×2 (08:28→16:30)
[2018-09-12] MEDS: MULTIVIT W/MINERALS 1 TAB TABLET GT SCH (08:28)
[2018-09-12] MEDS: LEVETIRACETAM SOL (5 ML) 100 MG/ML UDC GT SCH ×2 (08:28→20:08)
[2018-09-12] MEDS: TRILEPTAL GT SCH ×2 (08:28→20:12)
[2018-09-12] MEDS: [UNRECOGNIZED DRUG - OTHER] TP SCH ×2 (09:00→20:12)
[2018-09-12] MEDS: HYDROGEN PEROXIDE 480 ML BOTTLE TP SCH ×2 (09:00→20:13)
[2018-09-12] MEDS: NEOMY SULF/BACITRAC ZN/POLY 15 GM TUBE TP SCH ×2 (09:00→20:13)
[2018-09-12] MEDS: Z GUARD REMEDY 4 OZ OINT TP SCH ×2 (09:00→20:13)
[2018-09-12] MEDS: VIT A TP SCH ×2 (09:00→20:12)
[2018-09-12] MEDS: DAKINS QUARTER STRENGTH (0.125%) 480 ML BOTTLE TOP SCH (09:00)
--- NOTE | 2018-09-12 17:05 | NUR ---
Seen and examined by Arlene Munoz NP for Dr. Romero NNO given.
--- NOTE | 2018-09-12 19:13 | NUR ---
RT NOTE: RECEIVED TRACH PT ON [facility] VENT ON NOTED SETTINGS PER MD ORDERS. TRACH IS PATENT AND SECURED. ASSOCIATE PROFESSOR OF HISTORY DONE. Q6 BREATHING TX GIVEN WITH NO ADVERSE REACTION NOTED. SX DONE PRN. VENT PLUGGED INTO RED OUTLET. ALARMS ON AND AUDIBLE. NEVA BAG @ BEDSIDE. NO RESP DISTRESS AT THIS TIME. WILL CONT TO MONITOR PT. Addendum: 09/13/18 at 0418 by QIANA MARY RT Amended: Links added.
[2018-09-12 19:35] VITALS: BP 109/66
--- NOTE | 2018-09-12 20:00 | NUR ---
RN NOTES Late entry: 09/07/181999: Received pt with GT dislogged. Received new order to replace with Bard fr [id number], and KUB stat, noted and carried out.
[2018-09-12] MEDS: ASCORBIC ACID 500 MG TABLET GT SCH (20:12)
[2018-09-12] MEDS: AMIKACIN 250 MG in IV D5W 100 ML IV SCH (21:00)
[2018-09-13] MEDS: METOCLOPRAMIDE HCL 10 MG/10 ML UDC GT SCH ×3 (00:41→12:49)
[2018-09-13] MEDS: ALBUTEROL FS 2.5 MG/3 ML VIAL.NEB NEB SCH ×4 (00:42→19:18)
[2018-09-13] MEDS: MUPIROCIN OINT 2% 22 GM TUBE TP SCH ×2 (03:38→14:25)
[2018-09-13] MEDS: GABAPENTIN 300 MG CAPSULE GT SCH ×3 (05:48→20:11)
[2018-09-13] MEDS: DEXILANT 30 MG GT SCH (05:50)
[2018-09-13] MEDS: BLOOD SUGAR DIAGNOSTIC 1 EACH STRIP IN SCH ×2 (06:02→18:34)
[2018-09-13] MEDS: INSULIN REGULAR, HUMAN 100 UNIT/ML 3 ML VIAL SQ PRN ×2 (06:03→18:35)
[2018-09-13 08:01] VITALS: BP 120/71
[2018-09-13] MEDS: SIMETHICONE SUSP 40 MG/0.6 ML BOTTLE GT SCH ×2 (08:02→20:00)
[2018-09-13] MEDS: CALCIUM CARBONATE 500 MG TAB.CHEW GT SCH ×2 (08:02→17:00)
[2018-09-13] MEDS: DAKINS QUARTER STRENGTH (0.125%) 480 ML BOTTLE TOP SCH (08:02)
[2018-09-13] MEDS: TRILEPTAL GT SCH ×2 (08:02→20:11)
[2018-09-13] MEDS: LEVETIRACETAM SOL (5 ML) 100 MG/ML UDC GT SCH (08:02)
[2018-09-13] MEDS: ACIDOPHILUS/BULGARICUS 1 EACH TAB.CHEW GT SCH ×2 (08:02→17:00)
[2018-09-13] MEDS: DOCUSATE SODIUM LIQ 100 MG/10 ML UDC GT SCH (08:02)
[2018-09-13] MEDS: PROSOURCE DIETARY LIQUID 30 ML LIQUID GT SCH ×2 (08:02→17:00)
[2018-09-13] MEDS: FERROUS SULFATE - FOR SA ONLY 330 MG/7.5 ML UDC GT SCH ×2 (08:02→17:00)
[2018-09-13] MEDS: MULTIVIT W/MINERALS 1 TAB TABLET GT SCH (08:02)
[2018-09-13] MEDS: Z GUARD REMEDY 4 OZ OINT TP SCH ×2 (08:03→20:12)
[2018-09-13] MEDS: VIT A TP SCH ×2 (08:03→20:12)
[2018-09-13] MEDS: [UNRECOGNIZED DRUG - OTHER] TP SCH ×2 (08:03→20:12)
[2018-09-13] MEDS: HYDROGEN PEROXIDE 480 ML BOTTLE TP SCH ×2 (08:03→20:12)
[2018-09-13] MEDS: NEOMY SULF/BACITRAC ZN/POLY 15 GM TUBE TP SCH ×2 (08:03→20:12)
--- NOTE | 2018-09-13 09:42 | NUR ---
RT Pt received trach'd and on [facility] vent w charted settings per md orders. Alarms are set and audible. Trach is secure and patent. Model And Pattern Supervisor done. Hhn tx given and sx done prn w no adverse reactions. Bvm is at hob. No respiratory distress noted @ this time. Will continue to monitor. Addendum: 09/13/18 at 1001 by JULIETH REY RT Amended: Links added.
--- NOTE | 2018-09-13 13:10 | NUR ---
Sent KUB result to Arlene Munoz NP, with slight increase in ileus, waiting for call back.
--- NOTE | 2018-09-13 13:24 | NUR ---
Received orders from Arlene Munoz NP. Put pt. on NPO, connect GT to intermittent wall suction, change Reglan per GT to Reglan 5 mg IV q 6 hrs., carried out. Sister Beckie informed about KUB result and new plan of care. Will continue to monitor.
[2018-09-13] MEDS ORDERED: METOCLOPRAMIDE HCL 10 MG/2 ML VIAL IV PRN (16:30)
--- NOTE | 2018-09-13 17:30 | NUR ---
Seen and examined by Arlene Munoz NP and gave order for IV hydration D5 1/2 NS at 70cc/hr, carried out. Resident awake, appears comfortable, abdomen soft, distended. No vomiting noted. GT residual- 0cc. Vital signs Temp. 99 F, BP-118/70, HR-90, RR-16. Will continue to monitor.
--- NOTE | 2018-09-13 18:30 | NUR ---
Seen and examined by Anna Vargas NP with new order to change Keppra per GT to Keppra 1500 V q 12hrs, carried out.
[2018-09-13 20:01] VITALS: BP 130/70
[2018-09-13] MEDS: METOCLOPRAMIDE HCL 10 MG/2 ML VIAL IV SCH (20:02)
--- NOTE | 2018-09-13 20:09 | NUR ---
All Pts GT orders not given due to MD's order.
[2018-09-13] MEDS: ASCORBIC ACID 500 MG TABLET GT SCH (20:11)
[2018-09-13] MEDS: KEPPRA 1500 MG in IV NS 100 ML IV SCH (21:00)
[2018-09-13] MEDS ORDERED: KEPPRA 1500 MG in IV NS 100 ML IV SCH (21:00)
[2018-09-13] MEDS: AMIKACIN 250 MG in IV D5W 100 ML IV SCH (21:00)
[2018-09-14] MEDS: ALBUTEROL FS 2.5 MG/3 ML VIAL.NEB NEB SCH ×4 (00:46→19:23)
[2018-09-14] MEDS: MUPIROCIN OINT 2% 22 GM TUBE TP SCH ×2 (03:00→15:41)
[2018-09-14] MEDS: GABAPENTIN 300 MG CAPSULE GT SCH ×3 (05:00→20:09)
[2018-09-14] MEDS: DEXILANT 30 MG GT SCH (06:00)
[2018-09-14] MEDS: METOCLOPRAMIDE HCL 10 MG/2 ML VIAL IV SCH ×4 (06:29→18:37)
[2018-09-14] MEDS: INSULIN REGULAR, HUMAN 100 UNIT/ML 3 ML VIAL SQ PRN ×2 (06:46→18:38)
[2018-09-14] MEDS: BLOOD SUGAR DIAGNOSTIC 1 EACH STRIP IN SCH ×2 (06:46→18:37)
[2018-09-14] MEDS: SIMETHICONE SUSP 40 MG/0.6 ML BOTTLE GT SCH ×2 (08:00→20:07)
[2018-09-14] MEDS: TRILEPTAL GT SCH ×2 (09:00→20:10)
[2018-09-14] MEDS: Z GUARD REMEDY 4 OZ OINT TP SCH ×2 (09:00→20:10)
[2018-09-14] MEDS: DOCUSATE SODIUM LIQ 100 MG/10 ML UDC GT SCH (09:00)
[2018-09-14] MEDS: MULTIVIT W/MINERALS 1 TAB TABLET GT SCH (09:00)
[2018-09-14] MEDS: CALCIUM CARBONATE 500 MG TAB.CHEW GT SCH ×2 (09:00→17:00)
[2018-09-14] MEDS: NEOMY SULF/BACITRAC ZN/POLY 15 GM TUBE TP SCH ×2 (09:00→20:10)
[2018-09-14] MEDS: ACIDOPHILUS/BULGARICUS 1 EACH TAB.CHEW GT SCH ×2 (09:00→17:00)
[2018-09-14] MEDS: FERROUS SULFATE - FOR SA ONLY 330 MG/7.5 ML UDC GT SCH ×2 (09:00→17:00)
[2018-09-14] MEDS: PROSOURCE DIETARY LIQUID 30 ML LIQUID GT SCH ×2 (09:00→17:00)
[2018-09-14] MEDS: [UNRECOGNIZED DRUG - OTHER] TP SCH ×2 (09:00→20:10)
[2018-09-14] MEDS: DAKINS QUARTER STRENGTH (0.125%) 480 ML BOTTLE TOP SCH (09:00)
[2018-09-14] MEDS: VIT A TP SCH ×2 (09:00→20:10)
[2018-09-14] MEDS: KEPPRA 1500 MG in IV NS 100 ML IV SCH (09:00)
[2018-09-14] MEDS: HYDROGEN PEROXIDE 480 ML BOTTLE TP SCH ×2 (09:00→20:10)
--- NOTE | 2018-09-14 09:00 | NUR ---
Seen and examined by Dr. Felix, no new order given. Resident awake, resp. even and unlabored. Appears comfortable. Abdomen soft, positive bowel sound. GT connected to intermittent wall suction draining light green gastric fluid. Trach secured and midline, on mechanical ventilator, tolerating well.
[2018-09-14 11:47] VITALS: BP 114/83
[2018-09-14] MEDS ORDERED: FEE PK DOSING 1 MIN EA MC ONE (16:12)
[2018-09-14] MEDS: VANCOMYCIN 1 GM in IV D5W 250 ML IV SCH (17:00)
[2018-09-14] MEDS ORDERED: METOCLOPRAMIDE HCL 10 MG/2 ML VIAL IV SCH (18:07)
--- NOTE | 2018-09-14 18:30 | NUR ---
Seen and examined by Arlene Munoz NP with new orders and carried out. Resume GT feeding and GT meds. D/C GT intermittent suction. Continue Reglan IV q 6 hours. Abdomen soft, nondistended. No vomiting noted. Beckie siter informed of new plan of care. Will continue to monitor.
[2018-09-14] MEDS: GLUCERNA 1.2 1,000 ML BOTTLE GT PRN (19:23)
[2018-09-14 19:59] VITALS: BP 139/69
[2018-09-14] MEDS: LEVETIRACETAM SOL (5 ML) 100 MG/ML UDC GT SCH (20:07)
[2018-09-14] MEDS: ASCORBIC ACID 500 MG TABLET GT SCH (20:10)
[2018-09-15] MEDS: METOCLOPRAMIDE HCL 10 MG/2 ML VIAL IV SCH ×3 (00:18→12:04)
[2018-09-15] MEDS: ALBUTEROL FS 2.5 MG/3 ML VIAL.NEB NEB SCH ×4 (00:32→19:30)
[2018-09-15] MEDS: MUPIROCIN OINT 2% 22 GM TUBE TP SCH ×2 (03:00→14:26)
[2018-09-15] MEDS: GABAPENTIN 300 MG CAPSULE GT SCH ×3 (05:31→20:45)
[2018-09-15] MEDS: DEXILANT 30 MG GT SCH (05:31)
[2018-09-15] MEDS: BLOOD SUGAR DIAGNOSTIC 1 EACH STRIP IN SCH ×2 (05:31→17:51)
[2018-09-15] MEDS: INSULIN REGULAR, HUMAN 100 UNIT/ML 3 ML VIAL SQ PRN ×2 (05:32→18:01)
[2018-09-15 07:56] VITALS: BP 122/73
[2018-09-15 07:58] LABS: POTASSIUM 3.4 mmol/L (3.5-5.1)
[2018-09-15] MEDS: FERROUS SULFATE - FOR SA ONLY 330 MG/7.5 ML UDC GT SCH ×2 (08:01→17:51)
[2018-09-15] MEDS: SIMETHICONE SUSP 40 MG/0.6 ML BOTTLE GT SCH ×2 (08:01→20:45)
[2018-09-15] MEDS: DOCUSATE SODIUM LIQ 100 MG/10 ML UDC GT SCH (08:01)
[2018-09-15] MEDS: LEVETIRACETAM SOL (5 ML) 100 MG/ML UDC GT SCH ×2 (08:04→20:45)
[2018-09-15] MEDS: ACIDOPHILUS/BULGARICUS 1 EACH TAB.CHEW GT SCH ×2 (08:05→17:51)
[2018-09-15] MEDS: MULTIVIT W/MINERALS 1 TAB TABLET GT SCH (08:06)
[2018-09-15] MEDS: CALCIUM CARBONATE 500 MG TAB.CHEW GT SCH ×2 (08:06→17:51)
[2018-09-15] MEDS: PROSOURCE DIETARY LIQUID 30 ML LIQUID GT SCH ×2 (08:06→17:51)
[2018-09-15] MEDS: TRILEPTAL GT SCH ×2 (08:06→20:45)
[2018-09-15] MEDS ORDERED: POTASSIUM CHLORIDE 20 MEQ POWDER PACKET PO ONE (10:00)
[2018-09-15] MEDS: VANCOMYCIN 1 GM in IV D5W 250 ML IV SCH (11:00)
[2018-09-15] MEDS: GLUCERNA 1.2 1,000 ML BOTTLE GT PRN (13:47)
[2018-09-15] MEDS: Z GUARD REMEDY 4 OZ OINT TP SCH ×2 (14:25→20:46)
[2018-09-15] MEDS: NEOMY SULF/BACITRAC ZN/POLY 15 GM TUBE TP SCH ×2 (14:25→20:46)
[2018-09-15] MEDS: [UNRECOGNIZED DRUG - OTHER] TP SCH ×2 (14:25→20:46)
[2018-09-15] MEDS: VIT A TP SCH ×2 (14:25→20:46)
[2018-09-15] MEDS: DAKINS QUARTER STRENGTH (0.125%) 480 ML BOTTLE TOP SCH (14:25)
[2018-09-15] MEDS: HYDROGEN PEROXIDE 480 ML BOTTLE TP SCH ×2 (14:25→20:46)
--- NOTE | 2018-09-15 18:00 | NUR ---
Seen and examined by Arlene Munoz NP. IV Reglan changed to Reglan 10 mg per GT. GT feeding and meds tolerated well. No vomiting noted. Abdomen soft, still distended, positive bowel sound. Afebrile 98.5F. Will continue to monitor.
[2018-09-15 20:28] VITALS: BP 125/78
[2018-09-15] MEDS: ASCORBIC ACID 500 MG TABLET GT SCH (20:45)
[2018-09-15] MEDS: METOCLOPRAMIDE HCL 10 MG/10 ML UDC PO SCH (20:46)
[2018-09-16] MEDS: ALBUTEROL FS 2.5 MG/3 ML VIAL.NEB NEB SCH ×4 (01:31→20:06)
[2018-09-16] MEDS: MUPIROCIN OINT 2% 22 GM TUBE TP SCH ×2 (03:00→15:00)
[2018-09-16] MEDS: VANCOMYCIN 1 GM in IV D5W 250 ML IV SCH (05:00)
[2018-09-16] MEDS: DEXILANT 30 MG GT SCH (05:08)
[2018-09-16] MEDS: GABAPENTIN 300 MG CAPSULE GT SCH ×3 (05:08→21:04)
[2018-09-16] MEDS: METOCLOPRAMIDE HCL 10 MG/10 ML UDC PO SCH (05:08)
[2018-09-16] MEDS: INSULIN REGULAR, HUMAN 100 UNIT/ML 3 ML VIAL SQ PRN (06:06)
[2018-09-16] MEDS: BLOOD SUGAR DIAGNOSTIC 1 EACH STRIP IN SCH ×2 (06:06→17:44)
[2018-09-16] MEDS: SIMETHICONE SUSP 40 MG/0.6 ML BOTTLE GT SCH ×2 (08:00→20:00)
[2018-09-16 08:21] LABS: CALCIUM, SERUM 8.8 mg/dL (8.5-10.1); POTASSIUM 3.2 mmol/L (3.5-5.1)
[2018-09-16] MEDS: Z GUARD REMEDY 4 OZ OINT TP SCH ×2 (09:00→21:05)
[2018-09-16] MEDS: VIT A TP SCH ×2 (09:00→21:05)
[2018-09-16] MEDS: [UNRECOGNIZED DRUG - OTHER] TP SCH ×2 (09:00→21:05)
[2018-09-16] MEDS: NEOMY SULF/BACITRAC ZN/POLY 15 GM TUBE TP SCH ×2 (09:00→21:05)
[2018-09-16] MEDS: HYDROGEN PEROXIDE 480 ML BOTTLE TP SCH ×2 (09:00→21:05)
[2018-09-16] MEDS: DAKINS QUARTER STRENGTH (0.125%) 480 ML BOTTLE TOP SCH (09:00)
[2018-09-16] MEDS: TRILEPTAL GT SCH ×2 (09:23→21:04)
[2018-09-16] MEDS: FERROUS SULFATE - FOR SA ONLY 330 MG/7.5 ML UDC GT SCH ×2 (09:23→16:13)
[2018-09-16] MEDS: PROSOURCE DIETARY LIQUID 30 ML LIQUID GT SCH ×2 (09:23→16:13)
[2018-09-16] MEDS: MULTIVIT W/MINERALS 1 TAB TABLET GT SCH (09:23)
[2018-09-16] MEDS: DOCUSATE SODIUM LIQ 100 MG/10 ML UDC GT SCH (09:23)
[2018-09-16] MEDS: ACIDOPHILUS/BULGARICUS 1 EACH TAB.CHEW GT SCH ×2 (09:23→16:13)
[2018-09-16] MEDS: CALCIUM CARBONATE 500 MG TAB.CHEW GT SCH ×2 (09:23→16:13)
[2018-09-16] MEDS: LEVETIRACETAM SOL (5 ML) 100 MG/ML UDC GT SCH ×2 (09:23→21:04)
[2018-09-16 10:38] VITALS: BP 118/65
--- NOTE | 2018-09-16 11:35 | NUR ---
Dr. Felix made aware patient still on IV ATB therapy, patient is hard stick, he ordered patient may have midline. Called and left message to patients' sister Ms. Butts that her sister needs midline for current IV therapy. New order noted and carried out.
[2018-09-16] MEDS: METOCLOPRAMIDE HCL 10 MG/10 ML UDC GT SCH ×2 (12:19→21:04)
--- NOTE | 2018-09-16 12:30 | NUR ---
Briana FELIPE nurse came to put midline, she was able to put midline to left basilic gauge 18, patent and intact.
[2018-09-16] MEDS: GLUCERNA 1.2 1,000 ML BOTTLE GT PRN (13:02)
--- NOTE | 2018-09-16 15:00 | NUR ---
DIETARY WORKER Anna Faith lizarraga, made her aware of patients' BMP results, K+ 3.2, she ordered to give KCl 20 meq q day x 2 and BMP in am. Noted and carried out.
[2018-09-16] MEDS: POTASSIUM CHLORIDE 20 MEQ TAB.PRT.SR PO SCH (16:13)
--- NOTE | 2018-09-16 17:55 | NUR ---
Called and clarified [facility] pharmacy and spoke to Ms. Roach (Pharmacist), IV vanco is covered, [facility] phar to dose, will draw vanco trough tonight at 10:30 pm before 2300 dose with BUN and Creat, noted and carried out[facility] New orders noted and carried out.
[2018-09-16 20:29] VITALS: BP 117/67
[2018-09-16] MEDS: ASCORBIC ACID 500 MG TABLET GT SCH (21:04)
[2018-09-16] MEDS ORDERED: VANCOMYCIN 1 GM in IV D5W 250 ML IV SCH (23:00)
[2018-09-17] MEDS: ALBUTEROL FS 2.5 MG/3 ML VIAL.NEB NEB SCH ×4 (00:30→20:06)
[2018-09-17] MEDS: MUPIROCIN OINT 2% 22 GM TUBE TP SCH ×2 (03:00→15:00)
[2018-09-17] MEDS: GABAPENTIN 300 MG CAPSULE GT SCH ×3 (05:42→20:39)
[2018-09-17] MEDS: METOCLOPRAMIDE HCL 10 MG/10 ML UDC GT SCH ×3 (05:42→20:39)
[2018-09-17] MEDS: INSULIN REGULAR, HUMAN 100 UNIT/ML 3 ML VIAL SQ PRN (05:43)
[2018-09-17] MEDS: DEXILANT 30 MG GT SCH (05:43)
[2018-09-17] MEDS: BLOOD SUGAR DIAGNOSTIC 1 EACH STRIP IN SCH ×2 (05:43→17:36)
[2018-09-17 07:44] LABS: CALCIUM, SERUM 8.8 mg/dL (8.5-10.1); POTASSIUM 3.6 mmol/L (3.5-5.1)
--- NOTE | 2018-09-17 07:47 | NUR ---
Female trach pt received on a mechanical vent. Pt fariha is secure. Vent is plugged into a red outlet, alarms are set and audible, and BMV is at bedside. Addendum: 09/17/18 at 0747 by MARKIE PNIO RT Amended: Links added.
[2018-09-17 07:49] VITALS: BP 120/86
[2018-09-17] MEDS: SIMETHICONE SUSP 40 MG/0.6 ML BOTTLE GT SCH ×2 (08:00→20:39)
[2018-09-17] MEDS: VIT A TP SCH ×2 (09:00→20:39)
[2018-09-17] MEDS: DAKINS QUARTER STRENGTH (0.125%) 480 ML BOTTLE TOP SCH (09:00)
[2018-09-17] MEDS: [UNRECOGNIZED DRUG - OTHER] TP SCH ×2 (09:00→20:39)
[2018-09-17] MEDS: Z GUARD REMEDY 4 OZ OINT TP SCH ×2 (09:00→20:40)
[2018-09-17] MEDS: NEOMY SULF/BACITRAC ZN/POLY 15 GM TUBE TP SCH ×2 (09:00→20:39)
[2018-09-17] MEDS: HYDROGEN PEROXIDE 480 ML BOTTLE TP SCH ×2 (09:00→20:39)
[2018-09-17] MEDS: PROSOURCE DIETARY LIQUID 30 ML LIQUID GT SCH ×2 (09:31→17:36)
[2018-09-17] MEDS: FERROUS SULFATE - FOR SA ONLY 330 MG/7.5 ML UDC GT SCH ×2 (09:31→17:36)
[2018-09-17] MEDS: LEVETIRACETAM SOL (5 ML) 100 MG/ML UDC GT SCH ×2 (09:31→20:39)
[2018-09-17] MEDS: TRILEPTAL GT SCH ×2 (09:31→20:39)
[2018-09-17] MEDS: CALCIUM CARBONATE 500 MG TAB.CHEW GT SCH ×2 (09:31→17:36)
[2018-09-17] MEDS: ACIDOPHILUS/BULGARICUS 1 EACH TAB.CHEW GT SCH ×2 (09:31→17:36)
[2018-09-17] MEDS: DOCUSATE SODIUM LIQ 100 MG/10 ML UDC GT SCH (09:31)
[2018-09-17] MEDS: MULTIVIT W/MINERALS 1 TAB TABLET GT SCH (09:42)
--- NOTE | 2018-09-17 11:30 | NUR ---
Vancomycin trough level faxed to pharmacist this morning. MATTEO Gipson pharmacist faxed new recommendations for Vanco dosing, to hold dose until further order due to high Vanco trough level 29mcg/ml. Random Vanco level with BUN and creatinine to be done in AM. Order carried out. GT feeding tolerating well, no gastric residual no nausea and vomiting.
[2018-09-17] MEDS: POTASSIUM CHLORIDE 20 MEQ TAB.PRT.SR PO SCH (16:00)
[2018-09-17] MEDS ORDERED: VANCOMYCIN 1 GM in IV D5W 250 ML IV SCH (17:00)
[2018-09-17 20:20] VITALS: BP 135/77
[2018-09-17] MEDS: ASCORBIC ACID 500 MG TABLET GT SCH (20:39)
--- NOTE | 2018-09-17 21:06 | NUR ---
PT RCVD TRACH'D ON MECHANICAL VENT WITH CHARTED SETTINGS. HHN TX TOLERATED WELL. SX DONE. PT TRACH IS PATENT AND SECURE. AMBU BAG AT BEDSIDE. VENT PLUGGED INTO RED OUTLET. ALARMS ARE ON AND AUDIBLE. WILL CONTINUE TO MONITOR. Addendum: 09/17/18 at 2107 by MICH AVILA RT Amended: Links added.
[2018-09-18] MEDS: ALBUTEROL FS 2.5 MG/3 ML VIAL.NEB NEB SCH ×4 (01:45→19:57)
[2018-09-18] MEDS: MUPIROCIN OINT 2% 22 GM TUBE TP SCH ×2 (03:34→15:00)
[2018-09-18] MEDS: METOCLOPRAMIDE HCL 10 MG/10 ML UDC GT SCH ×3 (05:49→20:42)
[2018-09-18] MEDS: GABAPENTIN 300 MG CAPSULE GT SCH ×3 (05:49→20:42)
[2018-09-18] MEDS: DEXILANT 30 MG GT SCH (05:50)
[2018-09-18] MEDS: BLOOD SUGAR DIAGNOSTIC 1 EACH STRIP IN SCH ×2 (06:35→18:48)
[2018-09-18] MEDS: INSULIN REGULAR, HUMAN 100 UNIT/ML 3 ML VIAL SQ PRN ×2 (06:36→18:49)
[2018-09-18 07:53] VITALS: BP 91/56
[2018-09-18] MEDS: SIMETHICONE SUSP 40 MG/0.6 ML BOTTLE GT SCH ×2 (08:00→20:42)
[2018-09-18 08:14] LABS: CALCIUM, SERUM 9.1 mg/dL (8.5-10.1); CREATININE 2.1 mg/dL (0.6-1.3); POTASSIUM 3.7 mmol/L (3.5-5.1)
[2018-09-18] MEDS: VIT A TP SCH ×2 (09:00→20:42)
[2018-09-18] MEDS: [UNRECOGNIZED DRUG - OTHER] TP SCH ×2 (09:00→20:42)
[2018-09-18] MEDS: DAKINS QUARTER STRENGTH (0.125%) 480 ML BOTTLE TOP SCH (09:00)
[2018-09-18] MEDS: HYDROGEN PEROXIDE 480 ML BOTTLE TP SCH ×2 (09:00→20:42)
[2018-09-18] MEDS: Z GUARD REMEDY 4 OZ OINT TP SCH ×2 (09:00→20:43)
[2018-09-18] MEDS: NEOMY SULF/BACITRAC ZN/POLY 15 GM TUBE TP SCH ×2 (09:00→20:43)
[2018-09-18] MEDS: DOCUSATE SODIUM LIQ 100 MG/10 ML UDC GT SCH (09:46)
[2018-09-18] MEDS: FERROUS SULFATE - FOR SA ONLY 330 MG/7.5 ML UDC GT SCH ×2 (09:46→17:41)
[2018-09-18] MEDS: ACIDOPHILUS/BULGARICUS 1 EACH TAB.CHEW GT SCH ×2 (09:48→17:41)
[2018-09-18] MEDS: LEVETIRACETAM SOL (5 ML) 100 MG/ML UDC GT SCH ×2 (09:48→20:42)
[2018-09-18] MEDS: PROSOURCE DIETARY LIQUID 30 ML LIQUID GT SCH ×2 (09:49→17:41)
[2018-09-18] MEDS: CALCIUM CARBONATE 500 MG TAB.CHEW GT SCH ×2 (09:49→17:42)
[2018-09-18] MEDS: TRILEPTAL GT SCH ×2 (09:49→20:42)
[2018-09-18] MEDS: MULTIVIT W/MINERALS 1 TAB TABLET GT SCH (09:51)
--- NOTE | 2018-09-18 11:17 | NUR ---
Vancomycin random level (25) faxed to [facility] IV pharmacy department, spoke with James and will relay information with IV pharmacist who will review the result. IV pharmacist will be in at 1330.
[2018-09-18] MEDS: GLUCERNA 1.2 1,000 ML BOTTLE GT PRN (14:00)
--- NOTE | 2018-09-18 15:17 | NUR ---
Spoke with Dariana Roach IV pharmacist who reviewed Vancomycin random level. According to oDc, Vanco random level is still high at 25 and therefore continue to hold, however if the last dose of Vancomycin is on Thursday and it does not make sense to obtain Vanco random level on Thursday. Left a message to Lj Loredo IRONER SOCK regarding above and if she wants to extend therapy. Awaiting for response.
--- NOTE | 2018-09-18 16:00 | NUR ---
NAN Calhoun returned the call with order to DC IV Vancomycin and start patient on Doxyclycline 100 mg via GT Q 12 hours x 5 days. Order carried out, Resident's sister Beckie notified of new order and discontinuation of Vancomycin due to elevated level. Appreciated the call. She said that she wanted to talk to Dr. Luis last week but unable to get a hold of him. She said that she will try to catch him next week. Endorsed to inform MD that family wanted to talk to him when he rounds next week.
[2018-09-18 19:32] VITALS: BP 132/66
--- NOTE | 2018-09-18 19:57 | NUR ---
RT NOTE PATIENT RECEIVED TRACH'D ON MECHANICAL VENT. NO SIGNS OF RESPIRATORY DISTRESS NOTED. TRACH IS PATENT AND SECURE. PATIENT IS TOLERATING CURRENT ORDERED VENT SETTINGS. MECHANICAL VENT IS PLUGGED INTO RED OUTLET. ALARMS ARE SET AND AUDIBLE. EMERGENCY EQUIPMENT AT PATIENT BEDSIDE. WILL CONTINUE TO MONITOR PATIENT. Addendum: 09/18/18 at 2036 by FRANCO ALBARRAN RT Amended: Links added.
[2018-09-18] MEDS: ASCORBIC ACID 500 MG TABLET GT SCH (20:42)
[2018-09-18] MEDS: DOXYCYCLINE HYCLATE (100 MG) 100 MG TABLET PO SCH (20:42)
[2018-09-19] MEDS: ALBUTEROL FS 2.5 MG/3 ML VIAL.NEB NEB SCH ×4 (01:52→19:22)
[2018-09-19] MEDS: MUPIROCIN OINT 2% 22 GM TUBE TP SCH ×2 (03:02→15:00)
[2018-09-19] MEDS: DEXILANT 30 MG GT SCH (05:11)
[2018-09-19] MEDS: GABAPENTIN 300 MG CAPSULE GT SCH ×3 (05:11→20:05)
[2018-09-19] MEDS: METOCLOPRAMIDE HCL 10 MG/10 ML UDC GT SCH ×3 (05:11→20:07)
[2018-09-19] MEDS: BLOOD SUGAR DIAGNOSTIC 1 EACH STRIP IN SCH ×2 (06:22→18:19)
[2018-09-19] MEDS: GLUCERNA 1.2 1,000 ML BOTTLE GT PRN (06:23)
[2018-09-19] MEDS: INSULIN REGULAR, HUMAN 100 UNIT/ML 3 ML VIAL SQ PRN ×2 (06:23→18:19)
[2018-09-19 07:28] LABS: CALCIUM, SERUM 8.9 mg/dL (8.5-10.1); CREATININE 1.9 mg/dL (0.6-1.3); POTASSIUM 3.3 mmol/L (3.5-5.1)
[2018-09-19 07:32] VITALS: BP 112/75
[2018-09-19] MEDS: SIMETHICONE SUSP 40 MG/0.6 ML BOTTLE GT SCH ×2 (08:00→20:04)
[2018-09-19] MEDS: DAKINS QUARTER STRENGTH (0.125%) 480 ML BOTTLE TOP SCH (09:00)
[2018-09-19] MEDS: VIT A TP SCH ×2 (09:00→20:08)
[2018-09-19] MEDS: [UNRECOGNIZED DRUG - OTHER] TP SCH ×2 (09:00→20:08)
[2018-09-19] MEDS: NEOMY SULF/BACITRAC ZN/POLY 15 GM TUBE TP SCH ×2 (09:00→20:08)
[2018-09-19] MEDS: HYDROGEN PEROXIDE 480 ML BOTTLE TP SCH ×2 (09:00→20:08)
[2018-09-19] MEDS: Z GUARD REMEDY 4 OZ OINT TP SCH ×2 (09:00→20:08)
[2018-09-19] MEDS: DOXYCYCLINE HYCLATE (100 MG) 100 MG TABLET PO SCH ×2 (09:00→21:00)
[2018-09-19] MEDS: LEVETIRACETAM SOL (5 ML) 100 MG/ML UDC GT SCH ×2 (09:57→20:05)
[2018-09-19] MEDS: DOCUSATE SODIUM LIQ 100 MG/10 ML UDC GT SCH (09:57)
[2018-09-19] MEDS: FERROUS SULFATE - FOR SA ONLY 330 MG/7.5 ML UDC GT SCH ×2 (09:57→17:46)
[2018-09-19] MEDS: TRILEPTAL GT SCH ×2 (09:57→20:06)
[2018-09-19] MEDS: ACIDOPHILUS/BULGARICUS 1 EACH TAB.CHEW GT SCH ×2 (09:57→17:46)
[2018-09-19] MEDS: MULTIVIT W/MINERALS 1 TAB TABLET GT SCH (09:57)
[2018-09-19] MEDS: PROSOURCE DIETARY LIQUID 30 ML LIQUID GT SCH ×2 (09:58→17:00)
[2018-09-19] MEDS: CALCIUM CARBONATE 500 MG TAB.CHEW GT SCH ×2 (09:58→17:00)
--- NOTE | 2018-09-19 13:00 | NUR ---
Patients' K+ LOW 3.3, (Dr. Hathaway) called and ordered to give Potassium chloride 40 meq via GT X 1 dose only. Noted and carried out.
[2018-09-19] MEDS ORDERED: POTASSIUM CHLORIDE 20 MEQ POWDER PACKET GT ONE (14:00)
--- NOTE | 2018-09-19 14:49 | NUR ---
RT NOTE: PATIENT RECEIVED TRACHED ON MECHANICAL VENT. ALARMS VERIFIED AND AUDIBLE. SUCTIONED AND LAVAGED MODERATE- LARGE AMOUNT OF THICK WHITE SECRETIONS. AMBU BAG AND NEW TRACH AT [facility].
[2018-09-19] MEDS: ASCORBIC ACID 500 MG TABLET GT SCH (20:07)
[2018-09-19 20:22] VITALS: BP 135/79
--- NOTE | 2018-09-19 21:28 | NUR ---
RT NOTE PATIENT WAS RECEIVED ON CONTINUOUS VENT SUPPORT ON NOTED VENT SETTINGS. HHN INLINE TREATMENT WAS GIVEN, NO ADVERSE REACTION NOTED ,PRN SUCTION WAS DONE. TRACH TUBE PATENT AND SECURED. ALARMS ON AND AUDIBLE. GRAYSON AND CAITLYN LAMBERT AT [facility]. WILL CONTINUE TO MONITOR PATIENT Addendum: 09/19/18 at 2128 by DIEGO BRADY RT Amended: Links added.
[2018-09-20] MEDS: ALBUTEROL FS 2.5 MG/3 ML VIAL.NEB NEB SCH ×4 (01:20→19:53)
[2018-09-20] MEDS: MUPIROCIN OINT 2% 22 GM TUBE TP SCH ×2 (03:38→14:29)
[2018-09-20] MEDS: GABAPENTIN 300 MG CAPSULE GT SCH ×3 (05:10→20:10)
[2018-09-20] MEDS: INSULIN REGULAR, HUMAN 100 UNIT/ML 3 ML VIAL SQ PRN ×2 (05:11→17:57)
[2018-09-20] MEDS: METOCLOPRAMIDE HCL 10 MG/10 ML UDC GT SCH ×3 (05:11→20:11)
[2018-09-20] MEDS: DEXILANT 30 MG GT SCH (05:11)
[2018-09-20] MEDS: BLOOD SUGAR DIAGNOSTIC 1 EACH STRIP IN SCH ×2 (05:11→17:57)
[2018-09-20 07:21] LABS: CREATININE 1.9 mg/dL (0.6-1.3)
[2018-09-20 07:55] VITALS: BP 117/65
[2018-09-20] MEDS: SIMETHICONE SUSP 40 MG/0.6 ML BOTTLE GT SCH ×2 (08:00→20:09)
[2018-09-20] MEDS: VIT A TP SCH ×2 (09:00→20:11)
[2018-09-20] MEDS: DAKINS QUARTER STRENGTH (0.125%) 480 ML BOTTLE TOP SCH (09:00)
[2018-09-20] MEDS: NEOMY SULF/BACITRAC ZN/POLY 15 GM TUBE TP SCH ×2 (09:00→20:11)
[2018-09-20] MEDS: [UNRECOGNIZED DRUG - OTHER] TP SCH ×2 (09:00→20:11)
[2018-09-20] MEDS: HYDROGEN PEROXIDE 480 ML BOTTLE TP SCH ×2 (09:00→20:11)
[2018-09-20] MEDS: Z GUARD REMEDY 4 OZ OINT TP SCH ×2 (09:00→20:12)
[2018-09-20] MEDS: LEVETIRACETAM SOL (5 ML) 100 MG/ML UDC GT SCH ×2 (09:18→20:10)
[2018-09-20] MEDS: DOCUSATE SODIUM LIQ 100 MG/10 ML UDC GT SCH (09:18)
[2018-09-20] MEDS: TRILEPTAL GT SCH ×2 (09:18→20:11)
[2018-09-20] MEDS: CALCIUM CARBONATE 500 MG TAB.CHEW GT SCH ×2 (09:18→17:35)
[2018-09-20] MEDS: FERROUS SULFATE - FOR SA ONLY 330 MG/7.5 ML UDC GT SCH ×2 (09:18→17:34)
[2018-09-20] MEDS: ACIDOPHILUS/BULGARICUS 1 EACH TAB.CHEW GT SCH ×2 (09:18→17:34)
[2018-09-20] MEDS: MULTIVIT W/MINERALS 1 TAB TABLET GT SCH (09:18)
[2018-09-20] MEDS: PROSOURCE DIETARY LIQUID 30 ML LIQUID GT SCH ×2 (09:18→17:35)
[2018-09-20] MEDS: DOXYCYCLINE HYCLATE (100 MG) 100 MG TABLET PO SCH ×2 (09:19→21:03)
[2018-09-20 20:04] VITALS: BP 132/75
[2018-09-20] MEDS: ASCORBIC ACID 500 MG TABLET GT SCH (20:11)
[2018-09-21] MEDS: ALBUTEROL FS 2.5 MG/3 ML VIAL.NEB NEB SCH ×4 (02:25→19:08)
[2018-09-21] MEDS: GLUCERNA 1.2 1,000 ML BOTTLE GT PRN (03:50)
[2018-09-21] MEDS: MUPIROCIN OINT 2% 22 GM TUBE TP SCH ×2 (03:55→15:00)
[2018-09-21] MEDS: GABAPENTIN 300 MG CAPSULE GT SCH ×3 (05:16→20:04)
[2018-09-21] MEDS: METOCLOPRAMIDE HCL 10 MG/10 ML UDC GT SCH ×3 (05:16→20:05)
[2018-09-21] MEDS: DEXILANT 30 MG GT SCH (05:17)
[2018-09-21] MEDS: INSULIN REGULAR, HUMAN 100 UNIT/ML 3 ML VIAL SQ PRN ×2 (05:17→17:45)
[2018-09-21] MEDS: BLOOD SUGAR DIAGNOSTIC 1 EACH STRIP IN SCH ×2 (05:17→17:44)
[2018-09-21 07:25] VITALS: BP 122/72
[2018-09-21] MEDS: SIMETHICONE SUSP 40 MG/0.6 ML BOTTLE GT SCH ×2 (08:00→20:04)
[2018-09-21] MEDS: Z GUARD REMEDY 4 OZ OINT TP SCH ×3 (09:00→20:06)
[2018-09-21] MEDS: DAKINS QUARTER STRENGTH (0.125%) 480 ML BOTTLE TOP SCH (09:00)
[2018-09-21] MEDS: HYDROGEN PEROXIDE 480 ML BOTTLE TP SCH ×2 (09:00→20:06)
[2018-09-21] MEDS: [UNRECOGNIZED DRUG - OTHER] TP SCH ×2 (09:00→20:06)
[2018-09-21] MEDS: NEOMY SULF/BACITRAC ZN/POLY 15 GM TUBE TP SCH ×2 (09:00→20:06)
[2018-09-21] MEDS: VIT A TP SCH ×2 (09:00→20:06)
[2018-09-21] MEDS: LEVETIRACETAM SOL (5 ML) 100 MG/ML UDC GT SCH ×2 (09:06→20:04)
[2018-09-21] MEDS: FERROUS SULFATE - FOR SA ONLY 330 MG/7.5 ML UDC GT SCH ×2 (09:06→17:27)
[2018-09-21] MEDS: DOCUSATE SODIUM LIQ 100 MG/10 ML UDC GT SCH (09:06)
[2018-09-21] MEDS: ACIDOPHILUS/BULGARICUS 1 EACH TAB.CHEW GT SCH ×2 (09:06→17:27)
[2018-09-21] MEDS: TRILEPTAL GT SCH ×2 (09:07→20:05)
[2018-09-21] MEDS: PROSOURCE DIETARY LIQUID 30 ML LIQUID GT SCH ×2 (09:07→17:27)
[2018-09-21] MEDS: DOXYCYCLINE HYCLATE (100 MG) 100 MG TABLET PO SCH ×2 (09:07→20:06)
[2018-09-21] MEDS: CALCIUM CARBONATE 500 MG TAB.CHEW GT SCH ×2 (09:07→17:27)
[2018-09-21] MEDS: MULTIVIT W/MINERALS 1 TAB TABLET GT SCH (09:07)
--- NOTE | 2018-09-21 10:00 | NUR ---
Pt's sacral area noted with excoriation. Received order to apply Z-guard cream q shift for 14 days.
[2018-09-21] MEDS: ASCORBIC ACID 500 MG TABLET GT SCH (20:06)
[2018-09-21 20:44] VITALS: BP 111/72
[2018-09-22] MEDS: GLUCERNA 1.2 1,000 ML BOTTLE GT PRN ×2 (00:26→20:42)
[2018-09-22] MEDS: ALBUTEROL FS 2.5 MG/3 ML VIAL.NEB NEB SCH ×4 (00:41→19:34)
[2018-09-22] MEDS: MUPIROCIN OINT 2% 22 GM TUBE TP SCH ×2 (03:43→15:00)
[2018-09-22] MEDS: GABAPENTIN 300 MG CAPSULE GT SCH ×3 (05:03→20:40)
[2018-09-22] MEDS: METOCLOPRAMIDE HCL 10 MG/10 ML UDC GT SCH ×3 (05:04→20:41)
[2018-09-22] MEDS: BLOOD SUGAR DIAGNOSTIC 1 EACH STRIP IN SCH ×2 (05:05→17:17)
[2018-09-22] MEDS: DEXILANT 30 MG GT SCH (05:05)
[2018-09-22] MEDS: INSULIN REGULAR, HUMAN 100 UNIT/ML 3 ML VIAL SQ PRN ×2 (05:05→17:18)
[2018-09-22 07:37] VITALS: BP 107/66
[2018-09-22] MEDS: SIMETHICONE SUSP 40 MG/0.6 ML BOTTLE GT SCH ×2 (08:00→20:40)
[2018-09-22] MEDS: DOCUSATE SODIUM LIQ 100 MG/10 ML UDC GT SCH (09:37)
[2018-09-22] MEDS: ACIDOPHILUS/BULGARICUS 1 EACH TAB.CHEW GT SCH ×2 (09:37→16:42)
[2018-09-22] MEDS: [UNRECOGNIZED DRUG - OTHER] TP SCH ×2 (09:37→20:41)
[2018-09-22] MEDS: DOXYCYCLINE HYCLATE (100 MG) 100 MG TABLET PO SCH ×2 (09:37→20:41)
[2018-09-22] MEDS: FERROUS SULFATE - FOR SA ONLY 330 MG/7.5 ML UDC GT SCH ×2 (09:37→16:41)
[2018-09-22] MEDS: TRILEPTAL GT SCH ×2 (09:37→20:41)
[2018-09-22] MEDS: PROSOURCE DIETARY LIQUID 30 ML LIQUID GT SCH ×2 (09:37→16:42)
[2018-09-22] MEDS: MULTIVIT W/MINERALS 1 TAB TABLET GT SCH (09:37)
[2018-09-22] MEDS: CALCIUM CARBONATE 500 MG TAB.CHEW GT SCH ×2 (09:37→16:42)
[2018-09-22] MEDS: VIT A TP SCH ×2 (09:37→20:41)
[2018-09-22] MEDS: DAKINS QUARTER STRENGTH (0.125%) 480 ML BOTTLE TOP SCH (09:37)
[2018-09-22] MEDS: LEVETIRACETAM SOL (5 ML) 100 MG/ML UDC GT SCH ×2 (09:37→20:40)
[2018-09-22] MEDS: NEOMY SULF/BACITRAC ZN/POLY 15 GM TUBE TP SCH ×2 (09:38→20:41)
[2018-09-22] MEDS: Z GUARD REMEDY 4 OZ OINT TP SCH ×4 (09:38→20:41)
[2018-09-22] MEDS: HYDROGEN PEROXIDE 480 ML BOTTLE TP SCH ×2 (09:38→20:41)
--- NOTE | 2018-09-22 11:01 | NUR ---
Resident's sister Beckie visited and made aware of the excoriation in the sacral area. She was asking for information that she said she needs to send to Medical for patient's application. But according to Beckie, she will the forms tomorrow.
[2018-09-22 20:03] VITALS: BP 132/77
[2018-09-22] MEDS: ASCORBIC ACID 500 MG TABLET GT SCH (20:41)
[2018-09-23] MEDS: ALBUTEROL FS 2.5 MG/3 ML VIAL.NEB NEB SCH ×4 (01:24→19:15)
[2018-09-23] MEDS: MUPIROCIN OINT 2% 22 GM TUBE TP SCH ×2 (03:23→15:00)
[2018-09-23] MEDS: METOCLOPRAMIDE HCL 10 MG/10 ML UDC GT SCH ×3 (05:07→20:45)
[2018-09-23] MEDS: GABAPENTIN 300 MG CAPSULE GT SCH ×3 (05:07→20:45)
[2018-09-23] MEDS: DEXILANT 30 MG GT SCH (05:07)
[2018-09-23] MEDS: BLOOD SUGAR DIAGNOSTIC 1 EACH STRIP IN SCH ×2 (06:10→17:28)
[2018-09-23] MEDS: INSULIN REGULAR, HUMAN 100 UNIT/ML 3 ML VIAL SQ PRN ×2 (06:10→17:28)
[2018-09-23 07:30] VITALS: BP 126/69
--- NOTE | 2018-09-23 07:52 | NUR ---
Received female trach pt unlabored on a mechanical vent. Pt trach is secure. Vent is plugged into a red outlet, alarms are set and audible, and BMV is at bedside. Addendum: 09/23/18 at 0753 by MARKIE PINO RT Amended: Links added.
[2018-09-23] MEDS: SIMETHICONE SUSP 40 MG/0.6 ML BOTTLE GT SCH ×2 (08:00→20:45)
[2018-09-23] MEDS: MULTIVIT W/MINERALS 1 TAB TABLET GT SCH (08:23)
[2018-09-23] MEDS: ACIDOPHILUS/BULGARICUS 1 EACH TAB.CHEW GT SCH ×2 (08:23→16:19)
[2018-09-23] MEDS: FERROUS SULFATE - FOR SA ONLY 330 MG/7.5 ML UDC GT SCH ×2 (08:23→16:19)
[2018-09-23] MEDS: CALCIUM CARBONATE 500 MG TAB.CHEW GT SCH ×2 (08:23→16:19)
[2018-09-23] MEDS: LEVETIRACETAM SOL (5 ML) 100 MG/ML UDC GT SCH ×2 (08:23→20:45)
[2018-09-23] MEDS: DOXYCYCLINE HYCLATE (100 MG) 100 MG TABLET PO SCH ×2 (08:23→20:46)
[2018-09-23] MEDS: PROSOURCE DIETARY LIQUID 30 ML LIQUID GT SCH ×2 (08:23→16:19)
[2018-09-23] MEDS: TRILEPTAL GT SCH ×2 (08:23→20:45)
[2018-09-23] MEDS: DOCUSATE SODIUM LIQ 100 MG/10 ML UDC GT SCH (08:23)
[2018-09-23] MEDS: Z GUARD REMEDY 4 OZ OINT TP SCH ×4 (09:52→20:46)
[2018-09-23] MEDS: VIT A TP SCH ×2 (09:52→20:46)
[2018-09-23] MEDS: HYDROGEN PEROXIDE 480 ML BOTTLE TP SCH ×2 (09:52→20:46)
[2018-09-23] MEDS: DAKINS QUARTER STRENGTH (0.125%) 480 ML BOTTLE TOP SCH (09:52)
[2018-09-23] MEDS: NEOMY SULF/BACITRAC ZN/POLY 15 GM TUBE TP SCH (09:52)
[2018-09-23] MEDS: [UNRECOGNIZED DRUG - OTHER] TP SCH ×2 (09:52→20:46)
--- NOTE | 2018-09-23 10:15 | NUR ---
WOUND CARE CONSULT PATIENT SEEN, PATIENT PRESENTS WITH MOISTURE ASSOCIATED SKIN BREAKDOWN TO THE GLUTEAL CREASE REGION. RECOMMEND CLEANSE WITH NS, PAT DRY, APPLY Z GUARD, COVER WITH MEPILEX FOAM DRESSING Q SHIFT AND PRN SOILING X 14 DAYS. ALL DISCUSSED WITH SURFACE GRINDING MACHINE HAND.
--- NOTE | 2018-09-23 11:40 | NUR ---
Resident's sister visited today, in a happy mood. She said "I came to apologized to you of what happen yesterday", she said is stressing out with the letter she received from Medical yesterday. According to Beckie, she took the letter to business office and they will take care of it.
[2018-09-23] MEDS: GLUCERNA 1.2 1,000 ML BOTTLE GT PRN (16:19)
--- NOTE | 2018-09-23 19:30 | NUR ---
Seen by NAN Vargas no new order.
[2018-09-23 19:56] VITALS: BP 102/51
[2018-09-23] MEDS: ASCORBIC ACID 500 MG TABLET GT SCH (20:46)
[2018-09-24] MEDS: ALBUTEROL FS 2.5 MG/3 ML VIAL.NEB NEB SCH ×4 (00:54→19:33)
[2018-09-24] MEDS: MUPIROCIN OINT 2% 22 GM TUBE TP SCH ×2 (03:37→15:58)
[2018-09-24] MEDS: METOCLOPRAMIDE HCL 10 MG/10 ML UDC GT SCH ×3 (05:22→21:00)
[2018-09-24] MEDS: GABAPENTIN 300 MG CAPSULE GT SCH ×3 (05:22→21:00)
[2018-09-24] MEDS: DEXILANT 30 MG GT SCH (05:23)
[2018-09-24] MEDS: INSULIN REGULAR, HUMAN 100 UNIT/ML 3 ML VIAL SQ PRN ×2 (05:23→18:35)
[2018-09-24] MEDS: BLOOD SUGAR DIAGNOSTIC 1 EACH STRIP IN SCH ×2 (05:23→18:34)
[2018-09-24] MEDS: GLUCERNA 1.2 1,000 ML BOTTLE GT PRN (07:02)
[2018-09-24 07:31] VITALS: BP 103/61
[2018-09-24] MEDS: SIMETHICONE SUSP 40 MG/0.6 ML BOTTLE GT SCH ×2 (08:00→20:00)
--- NOTE | 2018-09-24 08:17 | NUR ---
PT RCVD TRACH'D ON MECHANICAL VENT WITH CHARTED SETTINGS. HHN TX APRIL WELL. SX DONE. PT TRACH IS PATENT AND SECURE. VENT PLUGGED INTO RED OUTLET. ALARMS ARE ON AND AUDIBLE. AMBU BAG AT BEDSIDE. WILL CONTINUE TO MONITOR. Addendum: 09/24/18 at 0817 by MICH AVILA RT Amended: Links added.
[2018-09-24] MEDS: [UNRECOGNIZED DRUG - OTHER] TP SCH ×2 (09:00→21:00)
[2018-09-24] MEDS: DAKINS QUARTER STRENGTH (0.125%) 480 ML BOTTLE TOP SCH (09:00)
[2018-09-24] MEDS: Z GUARD REMEDY 4 OZ OINT TP SCH ×4 (09:00→21:00)
[2018-09-24] MEDS: HYDROGEN PEROXIDE 480 ML BOTTLE TP SCH ×2 (09:00→21:00)
[2018-09-24] MEDS: VIT A TP SCH ×2 (09:00→21:00)
[2018-09-24] MEDS: MULTIVIT W/MINERALS 1 TAB TABLET GT SCH (09:13)
[2018-09-24] MEDS: ACIDOPHILUS/BULGARICUS 1 EACH TAB.CHEW GT SCH ×2 (09:13→17:25)
[2018-09-24] MEDS: CALCIUM CARBONATE 500 MG TAB.CHEW GT SCH ×2 (09:13→17:26)
[2018-09-24] MEDS: LEVETIRACETAM SOL (5 ML) 100 MG/ML UDC GT SCH ×2 (09:13→21:00)
[2018-09-24] MEDS: PROSOURCE DIETARY LIQUID 30 ML LIQUID GT SCH ×2 (09:13→17:26)
[2018-09-24] MEDS: FERROUS SULFATE - FOR SA ONLY 330 MG/7.5 ML UDC GT SCH ×2 (09:13→17:25)
[2018-09-24] MEDS: DOCUSATE SODIUM LIQ 100 MG/10 ML UDC GT SCH (09:13)
[2018-09-24] MEDS: TRILEPTAL GT SCH ×2 (09:13→21:00)
--- NOTE | 2018-09-24 11:37 | NUR ---
Janelle Puente made aware that patient's sister would like to speak with him when he gets a chance to discuss general condition of patient. said that he will call patient's sister Beckie.
[2018-09-24 20:00] VITALS: BP 118/72
[2018-09-24 20:12] VITALS: BP 118/72
[2018-09-24] MEDS: ASCORBIC ACID 500 MG TABLET GT SCH (21:00)
[2018-09-25] MEDS: ALBUTEROL FS 2.5 MG/3 ML VIAL.NEB NEB SCH ×4 (01:06→19:22)
[2018-09-25] MEDS: GABAPENTIN 300 MG CAPSULE GT SCH ×3 (05:00→20:22)
[2018-09-25] MEDS: METOCLOPRAMIDE HCL 10 MG/10 ML UDC GT SCH ×3 (05:00→20:15)
[2018-09-25] MEDS: BLOOD SUGAR DIAGNOSTIC 1 EACH STRIP IN SCH ×2 (06:13→18:37)
[2018-09-25] MEDS: DEXILANT 30 MG GT SCH (06:13)
[2018-09-25] MEDS: INSULIN REGULAR, HUMAN 100 UNIT/ML 3 ML VIAL SQ PRN (06:14)
[2018-09-25 07:28] VITALS: BP 133/87
[2018-09-25 08:00] VITALS: BP 133/87
[2018-09-25] MEDS: MULTIVIT W/MINERALS 1 TAB TABLET GT SCH (08:51)
[2018-09-25] MEDS: LEVETIRACETAM SOL (5 ML) 100 MG/ML UDC GT SCH ×2 (08:51→20:14)
[2018-09-25] MEDS: PROSOURCE DIETARY LIQUID 30 ML LIQUID GT SCH ×2 (08:51→16:33)
[2018-09-25] MEDS: FERROUS SULFATE - FOR SA ONLY 330 MG/7.5 ML UDC GT SCH ×2 (08:51→16:33)
[2018-09-25] MEDS: DOCUSATE SODIUM LIQ 100 MG/10 ML UDC GT SCH (08:51)
[2018-09-25] MEDS: ACIDOPHILUS/BULGARICUS 1 EACH TAB.CHEW GT SCH ×2 (08:51→16:33)
[2018-09-25] MEDS: SIMETHICONE SUSP 40 MG/0.6 ML BOTTLE GT SCH ×2 (08:51→20:13)
[2018-09-25] MEDS: CALCIUM CARBONATE 500 MG TAB.CHEW GT SCH ×2 (08:52→16:33)
[2018-09-25] MEDS: DAKINS QUARTER STRENGTH (0.125%) 480 ML BOTTLE TOP SCH (08:52)
[2018-09-25] MEDS: TRILEPTAL GT SCH ×2 (08:54→20:27)
[2018-09-25] MEDS: [UNRECOGNIZED DRUG - OTHER] TP SCH ×2 (08:54→20:17)
[2018-09-25] MEDS: VIT A TP SCH ×2 (08:54→20:17)
[2018-09-25] MEDS: HYDROGEN PEROXIDE 480 ML BOTTLE TP SCH ×2 (08:55→20:18)
[2018-09-25] MEDS: Z GUARD REMEDY 4 OZ OINT TP SCH ×4 (08:55→20:18)
[2018-09-25 19:30] VITALS: BP 114/70
[2018-09-25] MEDS: ASCORBIC ACID 500 MG TABLET GT SCH (20:17)
[2018-09-26] MEDS: ALBUTEROL FS 2.5 MG/3 ML VIAL.NEB NEB SCH ×4 (02:25→19:29)
[2018-09-26] MEDS: GABAPENTIN 300 MG CAPSULE GT SCH ×3 (05:03→20:08)
[2018-09-26] MEDS: METOCLOPRAMIDE HCL 10 MG/10 ML UDC GT SCH ×3 (05:04→20:09)
[2018-09-26] MEDS: BLOOD SUGAR DIAGNOSTIC 1 EACH STRIP IN SCH ×2 (05:05→17:46)
[2018-09-26] MEDS: DEXILANT 30 MG GT SCH (05:05)
[2018-09-26 07:55] VITALS: BP 106/56
[2018-09-26] MEDS: SIMETHICONE SUSP 40 MG/0.6 ML BOTTLE GT SCH ×2 (08:00→20:07)
[2018-09-26] MEDS: Z GUARD REMEDY 4 OZ OINT TP SCH ×4 (09:00→20:10)
[2018-09-26] MEDS: MULTIVIT W/MINERALS 1 TAB TABLET GT SCH (09:00)
[2018-09-26] MEDS: PROSOURCE DIETARY LIQUID 30 ML LIQUID GT SCH ×2 (09:00→17:32)
[2018-09-26] MEDS: VIT A TP SCH ×2 (09:00→20:09)
[2018-09-26] MEDS: LEVETIRACETAM SOL (5 ML) 100 MG/ML UDC GT SCH ×2 (09:00→20:07)
[2018-09-26] MEDS: HYDROGEN PEROXIDE 480 ML BOTTLE TP SCH ×2 (09:00→20:09)
[2018-09-26] MEDS: [UNRECOGNIZED DRUG - OTHER] TP SCH ×2 (09:00→20:09)
[2018-09-26] MEDS: DOCUSATE SODIUM LIQ 100 MG/10 ML UDC GT SCH (09:00)
[2018-09-26] MEDS: TRILEPTAL GT SCH ×2 (09:00→20:08)
[2018-09-26] MEDS: DAKINS QUARTER STRENGTH (0.125%) 480 ML BOTTLE TOP SCH (09:00)
[2018-09-26] MEDS: ACIDOPHILUS/BULGARICUS 1 EACH TAB.CHEW GT SCH ×2 (09:00→17:32)
[2018-09-26] MEDS: CALCIUM CARBONATE 500 MG TAB.CHEW GT SCH ×2 (09:00→17:32)
[2018-09-26] MEDS: FERROUS SULFATE - FOR SA ONLY 330 MG/7.5 ML UDC GT SCH ×2 (09:00→17:32)
--- NOTE | 2018-09-26 09:18 | NUR ---
PEN OR PENCIL ASSEMBLY MACHINE OPERATOR WAS CLEANING THE RESIDENT MIDLINE WAS FOUND NON-INTACT. DR. TORRES MADE AWARE, NEW ORDER D/C MIDLINE, ORDER WAS CARRIED OUT AND RESPOSIBLE CONSTITUTION PARTY MADE AWARE.
[2018-09-26] MEDS: INSULIN REGULAR, HUMAN 100 UNIT/ML 3 ML VIAL SQ PRN (17:47)
[2018-09-26 20:00] VITALS: BP 136/65
[2018-09-26] MEDS: ASCORBIC ACID 500 MG TABLET GT SCH (20:09)
[2018-09-26] MEDS: GLUCERNA 1.2 1,000 ML BOTTLE GT PRN (22:19)
--- NOTE | 2018-09-26 23:39 | NUR ---
PT RCVD TRACH'D ON MECHANICAL VENT WITH CHARTED SETTINGS. HHN TX APRIL WELL. SX DONE. PT TRACH IS PATENT AND SECURE. VENT PLUGGED INTO RED OUTLET. ALARMS APPEAR TO BE FUNCTIONING PROPERLY. AMBU BAG AT BEDSIDE. WILL CONTINUE TO MONITOR. Addendum: 09/26/18 at 2340 by MICH AVILA RT Amended: Links added.
[2018-09-27] MEDS: ALBUTEROL FS 2.5 MG/3 ML VIAL.NEB NEB SCH ×4 (00:41→20:05)
[2018-09-27] MEDS: GABAPENTIN 300 MG CAPSULE GT SCH ×3 (04:21→20:08)
[2018-09-27] MEDS: METOCLOPRAMIDE HCL 10 MG/10 ML UDC GT SCH ×3 (04:22→20:09)
[2018-09-27] MEDS: INSULIN REGULAR, HUMAN 100 UNIT/ML 3 ML VIAL SQ PRN ×2 (05:16→18:23)
[2018-09-27] MEDS: BLOOD SUGAR DIAGNOSTIC 1 EACH STRIP IN SCH ×2 (05:16→18:22)
[2018-09-27] MEDS: DEXILANT 30 MG GT SCH (05:16)
[2018-09-27 07:23] VITALS: BP 110/65
[2018-09-27] MEDS: SIMETHICONE SUSP 40 MG/0.6 ML BOTTLE GT SCH ×2 (08:00→20:06)
[2018-09-27] MEDS: HYDROGEN PEROXIDE 480 ML BOTTLE TP SCH ×2 (09:00→20:10)
[2018-09-27] MEDS: MULTIVIT W/MINERALS 1 TAB TABLET GT SCH (09:00)
[2018-09-27] MEDS: FERROUS SULFATE - FOR SA ONLY 330 MG/7.5 ML UDC GT SCH ×2 (09:00→16:53)
[2018-09-27] MEDS: Z GUARD REMEDY 4 OZ OINT TP SCH ×4 (09:00→20:10)
[2018-09-27] MEDS: CALCIUM CARBONATE 500 MG TAB.CHEW GT SCH ×2 (09:00→16:53)
[2018-09-27] MEDS: TRILEPTAL GT SCH ×2 (09:00→20:09)
[2018-09-27] MEDS: [UNRECOGNIZED DRUG - OTHER] TP SCH ×2 (09:00→20:10)
[2018-09-27] MEDS: LEVETIRACETAM SOL (5 ML) 100 MG/ML UDC GT SCH ×2 (09:00→20:07)
[2018-09-27] MEDS: DAKINS QUARTER STRENGTH (0.125%) 480 ML BOTTLE TOP SCH (09:00)
[2018-09-27] MEDS: DOCUSATE SODIUM LIQ 100 MG/10 ML UDC GT SCH (09:00)
[2018-09-27] MEDS: VIT A TP SCH ×2 (09:00→20:10)
[2018-09-27] MEDS: ACIDOPHILUS/BULGARICUS 1 EACH TAB.CHEW GT SCH ×2 (09:00→16:53)
[2018-09-27] MEDS: PROSOURCE DIETARY LIQUID 30 ML LIQUID GT SCH ×2 (09:00→16:53)
--- NOTE | 2018-09-27 12:34 | NUR ---
STEPHEN communicated to patient's sister about this Sunday 10/01 IDT mtg. Sister will attend it.
[2018-09-27] MEDS: GLUCERNA 1.2 1,000 ML BOTTLE GT PRN (18:46)
[2018-09-27 20:03] VITALS: BP 137/75
[2018-09-27] MEDS: ASCORBIC ACID 500 MG TABLET GT SCH (20:10)
[2018-09-28] MEDS: ALBUTEROL FS 2.5 MG/3 ML VIAL.NEB NEB SCH ×4 (01:14→19:30)
[2018-09-28] MEDS: GABAPENTIN 300 MG CAPSULE GT SCH ×3 (04:30→20:01)
[2018-09-28] MEDS: METOCLOPRAMIDE HCL 10 MG/10 ML UDC GT SCH ×3 (04:31→20:01)
[2018-09-28] MEDS: DEXILANT 30 MG GT SCH (05:18)
[2018-09-28] MEDS: INSULIN REGULAR, HUMAN 100 UNIT/ML 3 ML VIAL SQ PRN ×2 (05:18→18:36)
[2018-09-28] MEDS: BLOOD SUGAR DIAGNOSTIC 1 EACH STRIP IN SCH ×2 (05:18→18:36)
--- NOTE | 2018-09-28 07:38 | NUR ---
Female trach pt received on a mechanical vent. Pt fariha is secure. Vent is plugged into a red outlet, alarms are set and audible, and BMV is at bedside. Addendum: 09/28/18 at 0738 by MARKIE PINO RT Amended: Links added.
[2018-09-28 07:52] VITALS: BP 115/61
[2018-09-28] MEDS: SIMETHICONE SUSP 40 MG/0.6 ML BOTTLE GT SCH ×2 (08:00→20:01)
[2018-09-28] MEDS: MULTIVIT W/MINERALS 1 TAB TABLET GT SCH (09:00)
[2018-09-28] MEDS: VIT A TP SCH ×2 (09:00→20:01)
[2018-09-28] MEDS: Z GUARD REMEDY 4 OZ OINT TP SCH ×4 (09:00→20:01)
[2018-09-28] MEDS: HYDROGEN PEROXIDE 480 ML BOTTLE TP SCH ×2 (09:00→20:01)
[2018-09-28] MEDS: LEVETIRACETAM SOL (5 ML) 100 MG/ML UDC GT SCH ×2 (09:00→20:01)
[2018-09-28] MEDS: ACIDOPHILUS/BULGARICUS 1 EACH TAB.CHEW GT SCH ×2 (09:00→17:50)
[2018-09-28] MEDS: PROSOURCE DIETARY LIQUID 30 ML LIQUID GT SCH ×2 (09:00→17:50)
[2018-09-28] MEDS: TRILEPTAL GT SCH ×2 (09:00→20:01)
[2018-09-28] MEDS: DOCUSATE SODIUM LIQ 100 MG/10 ML UDC GT SCH (09:00)
[2018-09-28] MEDS: CALCIUM CARBONATE 500 MG TAB.CHEW GT SCH ×2 (09:00→17:50)
[2018-09-28] MEDS: [UNRECOGNIZED DRUG - OTHER] TP SCH ×2 (09:00→20:01)
[2018-09-28] MEDS: FERROUS SULFATE - FOR SA ONLY 330 MG/7.5 ML UDC GT SCH ×2 (09:00→17:50)
[2018-09-28] MEDS: DAKINS QUARTER STRENGTH (0.125%) 480 ML BOTTLE TOP SCH (09:00)
[2018-09-28] MEDS: ASCORBIC ACID 500 MG TABLET GT SCH (20:01)
[2018-09-28 20:31] VITALS: BP 143/74
--- NOTE | 2018-09-29 01:56 | NUR ---
PT NOTED WITH RE-OPENED PRESSURE ULCER ON LEFT LOWER BUTTOCK. GOOD SKIN CARE AND FIRST AID RENDERED. KEPT PT CLEANED AND DRIED. MADE AWARE WITH A NEW ORDER FOR WOUND CARE CONSULT. WILL ENDORSE TO AM SHIFT TO F/U. WILL CONT TO MONITOR AND WILL REPOSITION PT ROUTINELY.
[2018-09-29] MEDS: ALBUTEROL FS 2.5 MG/3 ML VIAL.NEB NEB SCH ×4 (02:19→19:33)
[2018-09-29] MEDS: BLOOD SUGAR DIAGNOSTIC 1 EACH STRIP IN SCH ×2 (05:04→18:11)
[2018-09-29] MEDS: METOCLOPRAMIDE HCL 10 MG/10 ML UDC GT SCH ×3 (05:04→21:19)
[2018-09-29] MEDS: DEXILANT 30 MG GT SCH (05:04)
[2018-09-29] MEDS: GABAPENTIN 300 MG CAPSULE GT SCH ×3 (05:04→21:19)
[2018-09-29] MEDS: INSULIN REGULAR, HUMAN 100 UNIT/ML 3 ML VIAL SQ PRN ×2 (05:04→18:12)
[2018-09-29] MEDS: SIMETHICONE SUSP 40 MG/0.6 ML BOTTLE GT SCH ×2 (08:00→20:00)
[2018-09-29 08:01] VITALS: BP 113/70
[2018-09-29] MEDS: Z GUARD REMEDY 4 OZ OINT TP SCH ×5 (09:00→21:20)
[2018-09-29] MEDS: DAKINS QUARTER STRENGTH (0.125%) 480 ML BOTTLE TOP SCH (09:00)
[2018-09-29] MEDS: [UNRECOGNIZED DRUG - OTHER] TP SCH ×2 (09:00→21:19)
[2018-09-29] MEDS: HYDROGEN PEROXIDE 480 ML BOTTLE TP SCH ×2 (09:00→21:20)
[2018-09-29] MEDS: VIT A TP SCH ×2 (09:00→21:19)
[2018-09-29] MEDS: CALCIUM CARBONATE 500 MG TAB.CHEW GT SCH ×2 (09:13→17:56)
[2018-09-29] MEDS: DOCUSATE SODIUM LIQ 100 MG/10 ML UDC GT SCH (09:13)
[2018-09-29] MEDS: LEVETIRACETAM SOL (5 ML) 100 MG/ML UDC GT SCH ×2 (09:13→21:19)
[2018-09-29] MEDS: TRILEPTAL GT SCH ×2 (09:13→21:19)
[2018-09-29] MEDS: ACIDOPHILUS/BULGARICUS 1 EACH TAB.CHEW GT SCH ×2 (09:13→17:56)
[2018-09-29] MEDS: FERROUS SULFATE - FOR SA ONLY 330 MG/7.5 ML UDC GT SCH ×2 (09:13→17:56)
[2018-09-29] MEDS: MULTIVIT W/MINERALS 1 TAB TABLET GT SCH (09:13)
[2018-09-29] MEDS: PROSOURCE DIETARY LIQUID 30 ML LIQUID GT SCH ×2 (09:13→17:56)
--- NOTE | 2018-09-29 10:48 | NUR ---
WOUND CARE CONSULT: RECEIVED WOUND CONSULT FOR LEFT BUTTOCK WOUND, HOWEVER RIGHT GLUTEAL CREASE NOTED TO HAVE INCONTINENCE ASSOCIATED SKIN DAMAGE. NO WOUND NOTED TO LEFT BUTTOCK. PT INCONTINENT OF LOOSE STOOL. RECOMMENDATIONS MADE FOR SKIN PROTECTION AND CARE. DISCUSSED WITH NURSING STAFF. WILL SEE PRN. TAYLOR IN AGREEMENT WITH PLAN OF CARE. ALL SKIN PROTECTION MEASURES IN PLACE. Addendum: 09/29/18 at 1059 by BRI PUGHU CORRECTION: INCONTINENCE ASSOCIATED SKIN DAMAGE IS NOT ON GLUTEAL CREASE BUT ON RIGHT POSTERIOR BUTTOCK FOLD. DISCUSSED RECOMMENDATIONS WITH NURSING STAFF (Z GUARD AND COVER WITH MEPILEX) KEEP SKIN CLEAN AND DRY.
[2018-09-29] MEDS: GLUCERNA 1.2 1,000 ML BOTTLE GT PRN (13:39)
--- NOTE | 2018-09-29 16:16 | NUR ---
Notified resident's sister Beckie that sacral excoriation is now closed however a new open area in noted in the R posterior buttock fold which was seen by wound sales consultant insurance this morning. She was also made aware that R great toe in grown nail is healed. Sister appreciated the call. Left a message to infection control nurse regarding possible discontinuation of isolation, endorsed to follow-up.
--- NOTE | 2018-09-29 19:34 | NUR ---
RT NOTE: RECEIVED TRACH PT ON [facility] VENT ON NOTED SETTINGS PER MD ORDERS. TRACH IS PATENT AND SECURED. HUMAN RESOURCES OFFICE ASSISTANT DONE. Q6 BREATHING TX GIVEN WITH NO ADVERSE REACTION NOTED. SX DONE PRN. VENT PLUGGED INTO RED OUTLET. ALARMS ON AND AUDIBLE. NEVA BAG @ BEDSIDE. NO RESP DISTRESS AT THIS TIME. WILL CONT TO MONITOR PT. Addendum: 09/30/18 at 0143 by QIANA MARY RT Amended: Links added.
[2018-09-29 20:05] VITALS: BP 128/71
[2018-09-29] MEDS: ASCORBIC ACID 500 MG TABLET GT SCH (21:19)
[2018-09-30] MEDS: ALBUTEROL FS 2.5 MG/3 ML VIAL.NEB NEB SCH ×4 (01:01→19:28)
[2018-09-30] MEDS: BLOOD SUGAR DIAGNOSTIC 1 EACH STRIP IN SCH ×2 (05:43→18:38)
[2018-09-30] MEDS: METOCLOPRAMIDE HCL 10 MG/10 ML UDC GT SCH ×3 (05:43→21:03)
[2018-09-30] MEDS: GABAPENTIN 300 MG CAPSULE GT SCH ×3 (05:43→21:03)
[2018-09-30] MEDS: DEXILANT 30 MG GT SCH (05:43)
[2018-09-30] MEDS: INSULIN REGULAR, HUMAN 100 UNIT/ML 3 ML VIAL SQ PRN (05:44)
[2018-09-30 07:44] VITALS: BP 127/64
--- NOTE | 2018-09-30 07:50 | NUR ---
Female pt received unlabored on a mechanical vent. Pt trach is secure. Vent is plugged into a red outlet, alarms are set and audible, and BMV is at bedside. Addendum: 09/30/18 at 0750 by MARKIE PINO RT Amended: Links added.
[2018-09-30] MEDS: SIMETHICONE SUSP 40 MG/0.6 ML BOTTLE GT SCH ×2 (08:00→20:00)
[2018-09-30] MEDS: FERROUS SULFATE - FOR SA ONLY 330 MG/7.5 ML UDC GT SCH ×2 (09:33→17:00)
[2018-09-30] MEDS: PROSOURCE DIETARY LIQUID 30 ML LIQUID GT SCH ×2 (09:33→17:00)
[2018-09-30] MEDS: ACIDOPHILUS/BULGARICUS 1 EACH TAB.CHEW GT SCH ×2 (09:33→17:00)
[2018-09-30] MEDS: LEVETIRACETAM SOL (5 ML) 100 MG/ML UDC GT SCH ×2 (09:33→21:03)
[2018-09-30] MEDS: DAKINS QUARTER STRENGTH (0.125%) 480 ML BOTTLE TOP SCH (09:33)
[2018-09-30] MEDS: TRILEPTAL GT SCH ×2 (09:33→21:03)
[2018-09-30] MEDS: VIT A TP SCH ×2 (09:33→21:10)
[2018-09-30] MEDS: [UNRECOGNIZED DRUG - OTHER] TP SCH ×2 (09:33→21:10)
[2018-09-30] MEDS: Z GUARD REMEDY 4 OZ OINT TP SCH ×6 (09:33→21:10)
[2018-09-30] MEDS: DOCUSATE SODIUM LIQ 100 MG/10 ML UDC GT SCH (09:33)
[2018-09-30] MEDS: CALCIUM CARBONATE 500 MG TAB.CHEW GT SCH ×2 (09:33→17:00)
[2018-09-30] MEDS: HYDROGEN PEROXIDE 480 ML BOTTLE TP SCH ×2 (09:33→21:10)
[2018-09-30] MEDS: MULTIVIT W/MINERALS 1 TAB TABLET GT SCH (09:35)
[2018-09-30] MEDS: GLUCERNA 1.2 1,000 ML BOTTLE GT PRN (09:35)
[2018-09-30 20:36] VITALS: BP 145/75
[2018-09-30] MEDS: ASCORBIC ACID 500 MG TABLET GT SCH (21:03)
[2018-10-01] MEDS: ALBUTEROL FS 2.5 MG/3 ML VIAL.NEB NEB SCH ×4 (01:05→19:24)
[2018-10-01] MEDS: GABAPENTIN 300 MG CAPSULE GT SCH ×3 (05:20→21:04)
[2018-10-01] MEDS: METOCLOPRAMIDE HCL 10 MG/10 ML UDC GT SCH ×3 (05:20→21:05)
[2018-10-01] MEDS: DEXILANT 30 MG GT SCH (05:21)
[2018-10-01] MEDS: BLOOD SUGAR DIAGNOSTIC 1 EACH STRIP IN SCH ×2 (05:43→18:25)
[2018-10-01] MEDS: INSULIN REGULAR, HUMAN 100 UNIT/ML 3 ML VIAL SQ PRN (05:43)
[2018-10-01] MEDS: GLUCERNA 1.2 1,000 ML BOTTLE GT PRN (06:00)
[2018-10-01] MEDS: MAGNESIUM HYDROXIDE 30 ML UDC GT PRN (07:02)
[2018-10-01 07:40] VITALS: BP 112/69
[2018-10-01] MEDS: SIMETHICONE SUSP 40 MG/0.6 ML BOTTLE GT SCH ×2 (08:00→20:00)
[2018-10-01] MEDS: ACIDOPHILUS/BULGARICUS 1 EACH TAB.CHEW GT SCH ×2 (09:37→17:00)
[2018-10-01] MEDS: DOCUSATE SODIUM LIQ 100 MG/10 ML UDC GT SCH (09:37)
[2018-10-01] MEDS: Z GUARD REMEDY 4 OZ OINT TP SCH ×6 (09:37→21:05)
[2018-10-01] MEDS: MULTIVIT W/MINERALS 1 TAB TABLET GT SCH (09:37)
[2018-10-01] MEDS: PROSOURCE DIETARY LIQUID 30 ML LIQUID GT SCH ×2 (09:37→17:00)
[2018-10-01] MEDS: TRILEPTAL GT SCH ×2 (09:37→21:04)
[2018-10-01] MEDS: VIT A TP SCH ×2 (09:37→21:05)
[2018-10-01] MEDS: HYDROGEN PEROXIDE 480 ML BOTTLE TP SCH ×2 (09:37→21:05)
[2018-10-01] MEDS: FERROUS SULFATE - FOR SA ONLY 330 MG/7.5 ML UDC GT SCH ×2 (09:37→17:00)
[2018-10-01] MEDS: LEVETIRACETAM SOL (5 ML) 100 MG/ML UDC GT SCH ×2 (09:37→21:04)
[2018-10-01] MEDS: [UNRECOGNIZED DRUG - OTHER] TP SCH ×2 (09:37→21:05)
[2018-10-01] MEDS: CALCIUM CARBONATE 500 MG TAB.CHEW GT SCH ×2 (09:37→17:00)
--- NOTE | 2018-10-01 14:00 | NUR ---
Pharmacy recommended Trileptal level on Thursday, Dr. Felix gave the order.
--- NOTE | 2018-10-01 16:06 | NUR ---
INTERDISCIPLINARY PLAN OF CARE CONFERENCE was held today. Resident's sister Beckie Chu unable to attend today's IDT meeting. Dr. Felix and the interdisciplinary team discussed the current plan of care in detail. Current orders as well as treatments and medications were reviewed. Patient was treated for her ileus with Reglan, intermittent suction through the GT and D51/2 NS for hydration while GT feeding on hold. 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 However continue to observe contact isolation pending discussion by Dr. Mccauley with infection control nurse Didi. Left a message to Beckie regarding above.
--- NOTE | 2018-10-01 19:08 | NUR ---
Notified NAN Loredo, that resident's antibiotic is completed and R great toe (S/P partial nail avulsion) is healed. Made her aware that per Dr. Mccauley, he will speak with Infection control nurse Didi to discuss protocol to follow if wound being isolated/treated is healed and close. According to Gertrude, it is OK to discontinue isolation, will follow-up with Dr. Mccauley or Didi on Thursday.
--- NOTE | 2018-10-01 20:04 | NUR ---
RT NOTE PATIENT RECEIVED ON MECHANICAL VENTILATION. AMBU BAG/BACK UP TRACH @ BEDSIDE. VENT PLUGGED INTO RED OUTLET. ALARMS ON AND AUDIBLE. TX GIVEN, NO ADVERSE REACTIONS NOTED. SX DONE, SMALL THICK WHITE SECRETIONS NOTED. NO SOB NOTED. WILL MONITOR. Addendum: 10/01/18 at 2004 by BRIEN NEAL RT Amended: Links added.
[2018-10-01 20:06] VITALS: BP 132/79
[2018-10-01] MEDS: ASCORBIC ACID 500 MG TABLET GT SCH (21:05)
[2018-10-02] MEDS: ALBUTEROL FS 2.5 MG/3 ML VIAL.NEB NEB SCH ×4 (01:08→19:20)
[2018-10-02] MEDS: GABAPENTIN 300 MG CAPSULE GT SCH ×3 (05:39→21:54)
[2018-10-02] MEDS: BLOOD SUGAR DIAGNOSTIC 1 EACH STRIP IN SCH ×2 (05:39→18:31)
[2018-10-02] MEDS: DEXILANT 30 MG GT SCH (05:39)
[2018-10-02] MEDS: METOCLOPRAMIDE HCL 10 MG/10 ML UDC GT SCH ×3 (05:39→21:54)
[2018-10-02] MEDS: GLUCERNA 1.2 1,000 ML BOTTLE GT PRN ×2 (05:40→23:33)
[2018-10-02] MEDS: INSULIN REGULAR, HUMAN 100 UNIT/ML 3 ML VIAL SQ PRN (05:40)
[2018-10-02 07:52] VITALS: BP 124/65
[2018-10-02] MEDS: SIMETHICONE SUSP 40 MG/0.6 ML BOTTLE GT SCH ×2 (08:00→20:00)
[2018-10-02] MEDS: ACIDOPHILUS/BULGARICUS 1 EACH TAB.CHEW GT SCH ×2 (09:27→17:54)
[2018-10-02] MEDS: FERROUS SULFATE - FOR SA ONLY 330 MG/7.5 ML UDC GT SCH ×2 (09:27→17:54)
[2018-10-02] MEDS: LEVETIRACETAM SOL (5 ML) 100 MG/ML UDC GT SCH ×2 (09:27→21:54)
[2018-10-02] MEDS: DOCUSATE SODIUM LIQ 100 MG/10 ML UDC GT SCH (09:27)
[2018-10-02] MEDS: TRILEPTAL GT SCH ×2 (09:28→21:54)
[2018-10-02] MEDS: Z GUARD REMEDY 4 OZ OINT TP SCH ×6 (09:30→21:55)
[2018-10-02] MEDS: CALCIUM CARBONATE 500 MG TAB.CHEW GT SCH ×2 (09:30→17:54)
[2018-10-02] MEDS: VIT A TP SCH ×2 (09:30→21:54)
[2018-10-02] MEDS: MULTIVIT W/MINERALS 1 TAB TABLET GT SCH (09:30)
[2018-10-02] MEDS: [UNRECOGNIZED DRUG - OTHER] TP SCH ×2 (09:30→21:54)
[2018-10-02] MEDS: HYDROGEN PEROXIDE 480 ML BOTTLE TP SCH ×2 (09:30→21:54)
[2018-10-02] MEDS: PROSOURCE DIETARY LIQUID 30 ML LIQUID GT SCH ×2 (09:30→17:54)
[2018-10-02 19:58] VITALS: BP 131/68
[2018-10-02] MEDS: ASCORBIC ACID 500 MG TABLET GT SCH (21:54)
[2018-10-03] MEDS: ALBUTEROL FS 2.5 MG/3 ML VIAL.NEB NEB SCH ×4 (01:18→19:31)
[2018-10-03] MEDS: BLOOD SUGAR DIAGNOSTIC 1 EACH STRIP IN SCH ×2 (05:41→17:51)
[2018-10-03] MEDS: GABAPENTIN 300 MG CAPSULE GT SCH ×3 (05:41→21:17)
[2018-10-03] MEDS: METOCLOPRAMIDE HCL 10 MG/10 ML UDC GT SCH ×3 (05:41→21:17)
[2018-10-03] MEDS: INSULIN REGULAR, HUMAN 100 UNIT/ML 3 ML VIAL SQ PRN ×2 (05:41→17:52)
[2018-10-03] MEDS: DEXILANT 30 MG GT SCH (05:41)
[2018-10-03 07:44] VITALS: BP 122/65
[2018-10-03] MEDS: SIMETHICONE SUSP 40 MG/0.6 ML BOTTLE GT SCH ×2 (08:00→20:00)
[2018-10-03] MEDS: PROSOURCE DIETARY LIQUID 30 ML LIQUID GT SCH ×2 (09:00→17:51)
[2018-10-03] MEDS: Z GUARD REMEDY 4 OZ OINT TP SCH ×6 (09:00→21:18)
[2018-10-03] MEDS: [UNRECOGNIZED DRUG - OTHER] TP SCH ×2 (09:00→21:18)
[2018-10-03] MEDS: HYDROGEN PEROXIDE 480 ML BOTTLE TP SCH ×2 (09:00→21:18)
[2018-10-03] MEDS: ACIDOPHILUS/BULGARICUS 1 EACH TAB.CHEW GT SCH ×2 (09:00→17:51)
[2018-10-03] MEDS: TRILEPTAL GT SCH ×2 (09:00→21:17)
[2018-10-03] MEDS: FERROUS SULFATE - FOR SA ONLY 330 MG/7.5 ML UDC GT SCH ×2 (09:00→17:51)
[2018-10-03] MEDS: VIT A TP SCH ×2 (09:00→21:18)
[2018-10-03] MEDS: MULTIVIT W/MINERALS 1 TAB TABLET GT SCH (09:00)
[2018-10-03] MEDS: DOCUSATE SODIUM LIQ 100 MG/10 ML UDC GT SCH (09:00)
[2018-10-03] MEDS: LEVETIRACETAM SOL (5 ML) 100 MG/ML UDC GT SCH ×2 (09:00→21:17)
[2018-10-03] MEDS: CALCIUM CARBONATE 500 MG TAB.CHEW GT SCH ×2 (09:00→17:51)
[2018-10-03 20:58] VITALS: BP 121/68
[2018-10-03] MEDS: ASCORBIC ACID 500 MG TABLET GT SCH (21:17)
[2018-10-04] MEDS: ALBUTEROL FS 2.5 MG/3 ML VIAL.NEB NEB SCH ×4 (01:25→19:19)
[2018-10-04] MEDS: BLOOD SUGAR DIAGNOSTIC 1 EACH STRIP IN SCH ×2 (05:42→17:51)
[2018-10-04] MEDS: DEXILANT 30 MG GT SCH (05:42)
[2018-10-04] MEDS: METOCLOPRAMIDE HCL 10 MG/10 ML UDC GT SCH ×3 (05:42→20:54)
[2018-10-04] MEDS: GABAPENTIN 300 MG CAPSULE GT SCH ×3 (05:42→20:54)
[2018-10-04 07:49] VITALS: BP 115/63
[2018-10-04] MEDS: VIT A TP SCH ×2 (08:30→20:54)
[2018-10-04] MEDS: [UNRECOGNIZED DRUG - OTHER] TP SCH ×2 (08:30→20:54)
[2018-10-04] MEDS: HYDROGEN PEROXIDE 480 ML BOTTLE TP SCH ×2 (08:30→20:54)
[2018-10-04] MEDS: FERROUS SULFATE - FOR SA ONLY 330 MG/7.5 ML UDC GT SCH ×2 (08:30→17:01)
[2018-10-04] MEDS: LEVETIRACETAM SOL (5 ML) 100 MG/ML UDC GT SCH ×2 (08:30→20:54)
[2018-10-04] MEDS: ACIDOPHILUS/BULGARICUS 1 EACH TAB.CHEW GT SCH ×2 (08:30→17:01)
[2018-10-04] MEDS: DOCUSATE SODIUM LIQ 100 MG/10 ML UDC GT SCH (08:30)
[2018-10-04] MEDS: MULTIVIT W/MINERALS 1 TAB TABLET GT SCH (08:30)
[2018-10-04] MEDS: TRILEPTAL GT SCH ×2 (08:30→20:54)
[2018-10-04] MEDS: SIMETHICONE SUSP 40 MG/0.6 ML BOTTLE GT SCH ×2 (08:30→20:54)
[2018-10-04] MEDS: PROSOURCE DIETARY LIQUID 30 ML LIQUID GT SCH ×2 (08:30→17:01)
[2018-10-04] MEDS: CALCIUM CARBONATE 500 MG TAB.CHEW GT SCH ×2 (08:30→17:01)
[2018-10-04] MEDS: Z GUARD REMEDY 4 OZ OINT TP SCH ×6 (08:31→20:54)
[2018-10-04] MEDS: INSULIN REGULAR, HUMAN 100 UNIT/ML 3 ML VIAL SQ PRN (17:52)
[2018-10-04] MEDS: GLUCERNA 1.2 1,000 ML BOTTLE GT PRN (18:20)
[2018-10-04 20:00] VITALS: BP 112/75
[2018-10-04] MEDS: ASCORBIC ACID 500 MG TABLET GT SCH (20:54)
[2018-10-05] MEDS: ALBUTEROL FS 2.5 MG/3 ML VIAL.NEB NEB SCH ×4 (01:06→19:47)
[2018-10-05] MEDS: GABAPENTIN 300 MG CAPSULE GT SCH ×3 (05:00→21:10)
[2018-10-05] MEDS: METOCLOPRAMIDE HCL 10 MG/10 ML UDC GT SCH ×3 (05:00→21:10)
[2018-10-05] MEDS: DEXILANT 30 MG GT SCH (06:10)
[2018-10-05] MEDS: BLOOD SUGAR DIAGNOSTIC 1 EACH STRIP IN SCH ×2 (06:10→17:38)
[2018-10-05 07:53] VITALS: BP 121/78
[2018-10-05] MEDS: SIMETHICONE SUSP 40 MG/0.6 ML BOTTLE GT SCH ×2 (08:00→20:00)
[2018-10-05] MEDS: [UNRECOGNIZED DRUG - OTHER] TP SCH ×2 (09:00→21:10)
[2018-10-05] MEDS: ACIDOPHILUS/BULGARICUS 1 EACH TAB.CHEW GT SCH ×2 (09:00→17:03)
[2018-10-05] MEDS: DOCUSATE SODIUM LIQ 100 MG/10 ML UDC GT SCH (09:00)
[2018-10-05] MEDS: FERROUS SULFATE - FOR SA ONLY 330 MG/7.5 ML UDC GT SCH ×2 (09:00→17:03)
[2018-10-05] MEDS: HYDROGEN PEROXIDE 480 ML BOTTLE TP SCH ×2 (09:00→21:10)
[2018-10-05] MEDS: LEVETIRACETAM SOL (5 ML) 100 MG/ML UDC GT SCH ×2 (09:00→21:09)
[2018-10-05] MEDS: TRILEPTAL GT SCH ×2 (09:00→21:10)
[2018-10-05] MEDS: Z GUARD REMEDY 4 OZ OINT TP SCH ×6 (09:00→21:10)
[2018-10-05] MEDS: CALCIUM CARBONATE 500 MG TAB.CHEW GT SCH ×2 (09:00→17:03)
[2018-10-05] MEDS: VIT A TP SCH ×2 (09:00→21:10)
[2018-10-05] MEDS: MULTIVIT W/MINERALS 1 TAB TABLET GT SCH (09:00)
[2018-10-05] MEDS: PROSOURCE DIETARY LIQUID 30 ML LIQUID GT SCH ×2 (09:00→17:03)
[2018-10-05] MEDS: INSULIN REGULAR, HUMAN 100 UNIT/ML 3 ML VIAL SQ PRN (17:38)
[2018-10-05 20:46] VITALS: BP 100/104
[2018-10-05] MEDS: ASCORBIC ACID 500 MG TABLET GT SCH (21:10)
[2018-10-06] MEDS: ALBUTEROL FS 2.5 MG/3 ML VIAL.NEB NEB SCH ×4 (01:20→19:34)
[2018-10-06] MEDS: BLOOD SUGAR DIAGNOSTIC 1 EACH STRIP IN SCH ×2 (05:47→17:19)
[2018-10-06] MEDS: METOCLOPRAMIDE HCL 10 MG/10 ML UDC GT SCH ×3 (05:47→21:05)
[2018-10-06] MEDS: GABAPENTIN 300 MG CAPSULE GT SCH ×3 (05:47→21:05)
[2018-10-06] MEDS: DEXILANT 30 MG GT SCH (05:47)
[2018-10-06 07:37] VITALS: BP 129/69
[2018-10-06] MEDS: ACIDOPHILUS/BULGARICUS 1 EACH TAB.CHEW GT SCH ×2 (08:48→16:02)
[2018-10-06] MEDS: PROSOURCE DIETARY LIQUID 30 ML LIQUID GT SCH ×2 (08:48→16:02)
[2018-10-06] MEDS: CALCIUM CARBONATE 500 MG TAB.CHEW GT SCH ×2 (08:48→16:02)
[2018-10-06] MEDS: SIMETHICONE SUSP 40 MG/0.6 ML BOTTLE GT SCH ×2 (08:48→20:00)
[2018-10-06] MEDS: MULTIVIT W/MINERALS 1 TAB TABLET GT SCH (08:48)
[2018-10-06] MEDS: LEVETIRACETAM SOL (5 ML) 100 MG/ML UDC GT SCH ×2 (08:48→21:05)
[2018-10-06] MEDS: FERROUS SULFATE - FOR SA ONLY 330 MG/7.5 ML UDC GT SCH ×2 (08:48→16:02)
[2018-10-06] MEDS: DOCUSATE SODIUM LIQ 100 MG/10 ML UDC GT SCH (08:48)
[2018-10-06] MEDS: TRILEPTAL GT SCH ×2 (08:48→21:05)
[2018-10-06] MEDS: VIT A TP SCH ×2 (09:00→21:05)
[2018-10-06] MEDS: Z GUARD REMEDY 4 OZ OINT TP SCH ×6 (09:00→21:06)
[2018-10-06] MEDS: [UNRECOGNIZED DRUG - OTHER] TP SCH ×2 (09:00→21:05)
[2018-10-06] MEDS: HYDROGEN PEROXIDE 480 ML BOTTLE TP SCH ×2 (09:00→21:05)
[2018-10-06] MEDS: GLUCERNA 1.2 1,000 ML BOTTLE GT PRN (16:01)
--- NOTE | 2018-10-06 18:30 | NUR ---
Notified Lj Gil that per Dr. Mccauley, Infectious Disease MD he has spoken with Yamilet, infection control nurse and said that isolation can be discontinue since the wound being isolated is healed. Catherine said that it is OK to DC isolation. Order carried out. Will DC isolation after room has been terminally clean and patient showered.
[2018-10-06] MEDS: MAGNESIUM HYDROXIDE 30 ML UDC GT PRN (18:40)
--- NOTE | 2018-10-06 19:35 | NUR ---
RECEIVED TRACH SHILEY 8 XLT PT ON MECH VENT WITH NOTED SETTINGS. PT IS AWAKE AND NON VERBAL. TRACH IS PATENT AND SECURED. DIE CAST SUPERVISOR DONE. Q6 BREATHING TX GIVEN WITH NO ADVERSE REACTION NOTED. SX MODERATE AMOUNT OF YELLOW THICK SECRETIONS . VENT PLUGGED INTO RED OUTLET. ALARMS ON AND AUDIBLE. AMBU BAG @ BEDSIDE. NO RESP DISTRESS AT THIS TIME. WILL CONT TO MONITOR PT.
[2018-10-06 20:03] VITALS: BP 140/70
[2018-10-06] MEDS: ASCORBIC ACID 500 MG TABLET GT SCH (21:05)
[2018-10-07] MEDS: ALBUTEROL FS 2.5 MG/3 ML VIAL.NEB NEB SCH ×4 (01:35→19:53)
[2018-10-07] MEDS: METOCLOPRAMIDE HCL 10 MG/10 ML UDC GT SCH ×3 (05:18→21:46)
[2018-10-07] MEDS: GABAPENTIN 300 MG CAPSULE GT SCH ×3 (05:18→21:46)
[2018-10-07] MEDS: DEXILANT 30 MG GT SCH (05:18)
[2018-10-07] MEDS: BLOOD SUGAR DIAGNOSTIC 1 EACH STRIP IN SCH ×2 (05:20→18:29)
[2018-10-07] MEDS: INSULIN REGULAR, HUMAN 100 UNIT/ML 3 ML VIAL SQ PRN (05:21)
[2018-10-07 07:44] VITALS: BP 125/67
[2018-10-07] MEDS: SIMETHICONE SUSP 40 MG/0.6 ML BOTTLE GT SCH ×2 (08:00→20:00)
[2018-10-07] MEDS: PROSOURCE DIETARY LIQUID 30 ML LIQUID GT SCH ×2 (09:00→17:55)
[2018-10-07] MEDS: DOCUSATE SODIUM LIQ 100 MG/10 ML UDC GT SCH (09:00)
[2018-10-07] MEDS: VIT A TP SCH ×2 (09:00→21:46)
[2018-10-07] MEDS: HYDROGEN PEROXIDE 480 ML BOTTLE TP SCH ×2 (09:00→21:46)
[2018-10-07] MEDS: CALCIUM CARBONATE 500 MG TAB.CHEW GT SCH ×2 (09:00→17:55)
[2018-10-07] MEDS: TRILEPTAL GT SCH ×2 (09:00→21:46)
[2018-10-07] MEDS: FERROUS SULFATE - FOR SA ONLY 330 MG/7.5 ML UDC GT SCH ×2 (09:00→17:55)
[2018-10-07] MEDS: MULTIVIT W/MINERALS 1 TAB TABLET GT SCH (09:00)
[2018-10-07] MEDS: [UNRECOGNIZED DRUG - OTHER] TP SCH ×2 (09:00→21:46)
[2018-10-07] MEDS: ACIDOPHILUS/BULGARICUS 1 EACH TAB.CHEW GT SCH ×2 (09:00→17:55)
[2018-10-07] MEDS: Z GUARD REMEDY 4 OZ OINT TP SCH ×6 (09:00→21:46)
[2018-10-07] MEDS: LEVETIRACETAM SOL (5 ML) 100 MG/ML UDC GT SCH ×2 (09:00→21:46)
--- NOTE | 2018-10-07 16:09 | NUR ---
Notified resident's sister that isolation is discontinued, patient given a shower and room terminally cleaned. Patient up in the chair taken to activity room for activities. Appreciated the call and pleased to know that isolation has been discontinue.
[2018-10-07] MEDS: GLUCERNA 1.2 1,000 ML BOTTLE GT PRN (18:29)
[2018-10-07 19:55] VITALS: BP 137/64
[2018-10-07] MEDS: ASCORBIC ACID 500 MG TABLET GT SCH (21:46)
[2018-10-08] MEDS: ALBUTEROL FS 2.5 MG/3 ML VIAL.NEB NEB SCH ×4 (01:13→20:03)
[2018-10-08] MEDS: METOCLOPRAMIDE HCL 10 MG/10 ML UDC GT SCH ×3 (05:00→20:32)
[2018-10-08] MEDS: GABAPENTIN 300 MG CAPSULE GT SCH ×3 (05:00→20:32)
[2018-10-08] MEDS: INSULIN REGULAR, HUMAN 100 UNIT/ML 3 ML VIAL SQ PRN (06:51)
[2018-10-08] MEDS: BLOOD SUGAR DIAGNOSTIC 1 EACH STRIP IN SCH ×2 (06:51→18:25)
[2018-10-08] MEDS: DEXILANT 30 MG GT SCH (06:51)
[2018-10-08 07:22] VITALS: BP 131/68
[2018-10-08] MEDS: SIMETHICONE SUSP 40 MG/0.6 ML BOTTLE GT SCH ×2 (08:00→20:32)
[2018-10-08] MEDS: ACIDOPHILUS/BULGARICUS 1 EACH TAB.CHEW GT SCH ×2 (09:57→17:00)
[2018-10-08] MEDS: DOCUSATE SODIUM LIQ 100 MG/10 ML UDC GT SCH (09:57)
[2018-10-08] MEDS: PROSOURCE DIETARY LIQUID 30 ML LIQUID GT SCH ×2 (09:57→17:00)
[2018-10-08] MEDS: MULTIVIT W/MINERALS 1 TAB TABLET GT SCH (09:57)
[2018-10-08] MEDS: FERROUS SULFATE - FOR SA ONLY 330 MG/7.5 ML UDC GT SCH ×2 (09:57→17:00)
[2018-10-08] MEDS: LEVETIRACETAM SOL (5 ML) 100 MG/ML UDC GT SCH ×2 (09:57→20:32)
[2018-10-08] MEDS: TRILEPTAL GT SCH ×2 (09:57→20:32)
[2018-10-08] MEDS: Z GUARD REMEDY 4 OZ OINT TP SCH ×4 (09:58→20:33)
[2018-10-08] MEDS: CALCIUM CARBONATE 500 MG TAB.CHEW GT SCH ×2 (09:58→17:00)
[2018-10-08] MEDS: HYDROGEN PEROXIDE 480 ML BOTTLE TP SCH ×2 (09:58→20:32)
[2018-10-08] MEDS: [UNRECOGNIZED DRUG - OTHER] TP SCH ×2 (09:58→20:32)
[2018-10-08] MEDS: VIT A TP SCH ×2 (09:58→20:32)
[2018-10-08] MEDS: GLUCERNA 1.2 1,000 ML BOTTLE GT PRN (13:38)
[2018-10-08] MEDS: ACETAMINOPHEN 650 MG/20 ML UDC- SA PATIENTS-FEVER ONLY GT PRN (19:30)
--- NOTE | 2018-10-08 19:30 | NUR ---
Temp 102,BP 113/61,HR 114, patient look weak and sleepy.No respiratory distress noted.Cooling measures provided and Tylenol given as ordered.Dr Luis notified with new orders,CXR,CBC,BMP,BC X 2 and CXR.Left voicemail to sister Beckie regarding WHIT.
[2018-10-08] MEDS: ASCORBIC ACID 500 MG TABLET GT SCH (20:32)
[2018-10-08 20:46] LABS: BILIRUBIN,URINE NEGATIVE (NEGATIVE); BLOOD, URINE 2+ Ery/uL (NEGATIVE); COLOR,URINE YELLOW (YELLOW); KETONES,URINE NEGATIVE (NEGATIVE); LEUKOCYTE ESTERASE ,URINE 3+ (NEGATIVE); NITRITE, URINE NEGATIVE (NEGATIVE); PH,URINE 7.5 (5.0-8.0); PROTEIN,URINE 3+ mg/dl (NEGATIVE); UGLUCOSE NEGATIVE (NEGATIVE); UROBILINOGEN,URINE 0.2 EU/dL (0.2)
[2018-10-08 20:54] LABS: APPEARANCE,URINE CLOUDY (CLEAR)
[2018-10-08 20:55] LABS: BACTERIA,URINE Moderate /HPF (None Seen); SQUAMOUS EPITHELIAL CELL,UR Few /HPF (None Seen); WBC,URINE 51-80 /HPF (0-3)
[2018-10-08 21:07] LABS: BASOPHILS # (AUTO) 0.1 /CMM (0.0-0.2); BASOPHILS % (AUTO) 0.5 % (0.0-2.0); HEMATOCRIT 22 % (33-45); HEMOGLOBIN 7.4 g/dL (11.5-14.8); LYMPHOCYTES # (AUTO) 2.3 /CMM (0.8-4.8); LYMPHOCYTES % (AUTO) 9.2 % (20.0-44.0); MEAN CORPUSCULAR HGB CONC 33 g/dl (31.0-36.0); MEAN CORPUSCULAR VOLUME 98 fL (82-100); MONOCYTES # (AUTO) 1.8 /CMM (0.1-1.30); MONOCYTES % (AUTO) 7.5 % (2.0-12.0); NEUTROPHILS # (AUTO) 20.1 /CMM (1.8-8.9); NEUTROPHILS % (AUTO) 80.8 % (43.0-81.0); PLATELET COUNT (AUTO) 369 /CMM (150-450); RED BLOOD CELL COUNT(AUTO) 2.24 MIL/uL (4.0-5.2); WHITE BLOOD COUNT (AUTO) 24.8 K/uL (4.3-11.0)
[2018-10-08 21:22] LABS: CALCIUM, SERUM 10.1 mg/dL (8.5-10.1); CREATININE 2.2 mg/dL (0.6-1.3); POTASSIUM 3.7 mmol/L (3.5-5.1)
--- NOTE | 2018-10-08 21:40 | NUR ---
Relayed labs result to Gertrude Loredo (ID) WBC 24.8,Hgb 7.4,BUN 51,and Urinalysis.Ordered Cefepime 1 gm IV q 12hrs x 5 days per [facility] protocol.Will carried out.
[2018-10-08] MEDS ORDERED: CEFEPIME 1 GM VIAL IV SCH (22:00)
[2018-10-09] MEDS: ALBUTEROL FS 2.5 MG/3 ML VIAL.NEB NEB SCH ×4 (02:29→19:41)
[2018-10-09] MEDS: GABAPENTIN 300 MG CAPSULE GT SCH ×3 (05:50→21:04)
[2018-10-09] MEDS: METOCLOPRAMIDE HCL 10 MG/10 ML UDC GT SCH ×3 (05:50→21:04)
[2018-10-09] MEDS: DEXILANT 30 MG GT SCH (05:50)
[2018-10-09] MEDS: BLOOD SUGAR DIAGNOSTIC 1 EACH STRIP IN SCH ×2 (05:50→18:08)
[2018-10-09] MEDS: INSULIN REGULAR, HUMAN 100 UNIT/ML 3 ML VIAL SQ PRN (05:52)
[2018-10-09 07:44] VITALS: BP 133/63
[2018-10-09] MEDS: SIMETHICONE SUSP 40 MG/0.6 ML BOTTLE GT SCH ×2 (08:00→20:00)
[2018-10-09] MEDS ORDERED: CEFEPIME 1 GM in IV D5W 50 ML IV SCH ×2 (08:00→10:00)
[2018-10-09] MEDS: Z GUARD REMEDY 4 OZ OINT TP SCH ×4 (09:00→21:14)
[2018-10-09] MEDS: ACIDOPHILUS/BULGARICUS 1 EACH TAB.CHEW GT SCH ×2 (09:00→17:58)
[2018-10-09] MEDS: [UNRECOGNIZED DRUG - OTHER] TP SCH ×2 (09:00→21:04)
[2018-10-09] MEDS: DOCUSATE SODIUM LIQ 100 MG/10 ML UDC GT SCH (09:00)
[2018-10-09] MEDS: HYDROGEN PEROXIDE 480 ML BOTTLE TP SCH ×2 (09:00→21:13)
[2018-10-09] MEDS: CALCIUM CARBONATE 500 MG TAB.CHEW GT SCH ×2 (09:00→17:58)
[2018-10-09] MEDS: MULTIVIT W/MINERALS 1 TAB TABLET GT SCH (09:00)
[2018-10-09] MEDS: PROSOURCE DIETARY LIQUID 30 ML LIQUID GT SCH ×2 (09:00→17:58)
[2018-10-09] MEDS: LEVETIRACETAM SOL (5 ML) 100 MG/ML UDC GT SCH ×2 (09:00→21:04)
[2018-10-09] MEDS: FERROUS SULFATE - FOR SA ONLY 330 MG/7.5 ML UDC GT SCH ×2 (09:00→17:58)
[2018-10-09] MEDS: VIT A TP SCH ×2 (09:00→21:04)
[2018-10-09] MEDS: TRILEPTAL GT SCH ×2 (09:00→21:04)
--- NOTE | 2018-10-09 09:10 | NUR ---
Dr Luis ordered to repeat CBC and BMP.
[2018-10-09] MEDS: GLUCERNA 1.2 1,000 ML BOTTLE GT PRN (10:15)
[2018-10-09 10:46] LABS: BASOPHILS # (AUTO) 0.1 /CMM (0.0-0.2); BASOPHILS % (AUTO) 0.4 % (0.0-2.0); EOSINOPHILS % (AUTO) 4.3 % (0.0-6.0); HEMATOCRIT 22 % (33-45); HEMOGLOBIN 7.7 g/dL (11.5-14.8); LYMPHOCYTES # (AUTO) 2.1 /CMM (0.8-4.8); LYMPHOCYTES % (AUTO) 12.2 % (20.0-44.0); MEAN CORPUSCULAR HGB CONC 34 g/dl (31.0-36.0); MEAN CORPUSCULAR VOLUME 99 fL (82-100); MONOCYTES # (AUTO) 1.2 /CMM (0.1-1.30); MONOCYTES % (AUTO) 6.7 % (2.0-12.0); NEUTROPHILS # (AUTO) 13.4 /CMM (1.8-8.9); NEUTROPHILS % (AUTO) 76.4 % (43.0-81.0); PLATELET COUNT (AUTO) 339 /CMM (150-450); RED BLOOD CELL COUNT(AUTO) 2.27 MIL/uL (4.0-5.2); WHITE BLOOD COUNT (AUTO) 17.6 K/uL (4.3-11.0)
--- NOTE | 2018-10-09 10:52 | NUR ---
Spoke with [facility] pharmacist Melissa. She said the covered alternative for Cefepime is Fortaz. Informed GENERAL WAREHOUSE WORKER Gertrude. She ordered to DC Cefepime and to give Fortaz 1 gm IV q 8 hours for 7 days.
[2018-10-09 10:56] LABS: CALCIUM, SERUM 9.9 mg/dL (8.5-10.1); POTASSIUM 3.6 mmol/L (3.5-5.1)
--- NOTE | 2018-10-09 11:10 | NUR ---
Relayed CBC and BMP results to Dr Luis. Informed him that NAN Loredo changed pt's antibiotic from Cefepime to Fortaz since Cefepime is not covered by pt's insurance. No new order.
[2018-10-09] MEDS ORDERED: CEFTAZIDIME 1 G in IV D5W 50 ML IV SCH ×2 (12:00→18:31)
--- NOTE | 2018-10-09 13:05 | NUR ---
[facility] IV pharmacist Melissa recommended to change Fortaz 1 gm from q 8 hours to q 12 hours due to pt's elevated BUN of 46. Informed CHAMBER WORKER Gertrude and she ordered to change Fortaz to q 12 hours.
--- NOTE | 2018-10-09 16:39 | NUR ---
NAN Loredo asked if pt has a Bourgeois catheter, informed her that she does. NAN Loredo said to change it. Addendum: 10/09/18 at 1813 by SARITA GOMEZ RN Pt's urine clear and light yellow in color.
--- NOTE | 2018-10-09 17:55 | NUR ---
Called pt's sister and informed her that pt had a fever last night and is now on IV antibiotic (Fortaz). She said she got the message last night and will visit pt on Thursday.
[2018-10-09 19:51] VITALS: BP 130/68
[2018-10-09] MEDS: ASCORBIC ACID 500 MG TABLET GT SCH (21:04)
[2018-10-10] MEDS: ALBUTEROL FS 2.5 MG/3 ML VIAL.NEB NEB SCH ×4 (01:21→19:23)
[2018-10-10] MEDS: METOCLOPRAMIDE HCL 10 MG/10 ML UDC GT SCH ×3 (05:43→21:09)
[2018-10-10] MEDS: GABAPENTIN 300 MG CAPSULE GT SCH ×3 (05:43→21:09)
[2018-10-10] MEDS: BLOOD SUGAR DIAGNOSTIC 1 EACH STRIP IN SCH ×2 (05:44→17:58)
[2018-10-10] MEDS: GLUCERNA 1.2 1,000 ML BOTTLE GT PRN (05:44)
[2018-10-10] MEDS: DEXILANT 30 MG GT SCH (05:44)
[2018-10-10] MEDS: INSULIN REGULAR, HUMAN 100 UNIT/ML 3 ML VIAL SQ PRN ×2 (05:44→17:58)
[2018-10-10 07:32] VITALS: BP 100/41
[2018-10-10] MEDS: SIMETHICONE SUSP 40 MG/0.6 ML BOTTLE GT SCH ×2 (08:00→20:00)
[2018-10-10] MEDS: PROSOURCE DIETARY LIQUID 30 ML LIQUID GT SCH ×2 (09:00→17:02)
[2018-10-10] MEDS: CALCIUM CARBONATE 500 MG TAB.CHEW GT SCH ×2 (09:00→17:02)
[2018-10-10] MEDS: LEVETIRACETAM SOL (5 ML) 100 MG/ML UDC GT SCH ×2 (09:00→21:09)
[2018-10-10] MEDS: HYDROGEN PEROXIDE 480 ML BOTTLE TP SCH ×2 (09:00→21:10)
[2018-10-10] MEDS: MULTIVIT W/MINERALS 1 TAB TABLET GT SCH (09:00)
[2018-10-10] MEDS: FERROUS SULFATE - FOR SA ONLY 330 MG/7.5 ML UDC GT SCH ×2 (09:00→17:02)
[2018-10-10] MEDS: ACIDOPHILUS/BULGARICUS 1 EACH TAB.CHEW GT SCH ×2 (09:00→17:02)
[2018-10-10] MEDS: TRILEPTAL GT SCH ×2 (09:00→21:09)
[2018-10-10] MEDS: DOCUSATE SODIUM LIQ 100 MG/10 ML UDC GT SCH (09:00)
[2018-10-10] MEDS: VIT A TP SCH ×2 (09:00→21:10)
[2018-10-10] MEDS: Z GUARD REMEDY 4 OZ OINT TP SCH ×4 (09:00→21:10)
[2018-10-10] MEDS: [UNRECOGNIZED DRUG - OTHER] TP SCH ×2 (09:00→21:10)
--- NOTE | 2018-10-10 09:00 | NUR ---
Seen and examined by Dr. Luis, no new order given.
[2018-10-10] MEDS: CEFTAZIDIME 1 G in IV D5W 50 ML IV SCH ×3 (12:22)
[2018-10-10 19:44] VITALS: BP 129/83
[2018-10-10] MEDS: ASCORBIC ACID 500 MG TABLET GT SCH (21:09)
[2018-10-11] MEDS: ALBUTEROL FS 2.5 MG/3 ML VIAL.NEB NEB SCH ×4 (01:39→20:00)
[2018-10-11] MEDS: GABAPENTIN 300 MG CAPSULE GT SCH ×3 (05:43→21:04)
[2018-10-11] MEDS: BLOOD SUGAR DIAGNOSTIC 1 EACH STRIP IN SCH ×2 (05:44→18:41)
[2018-10-11] MEDS: DEXILANT 30 MG GT SCH (05:44)
[2018-10-11] MEDS: METOCLOPRAMIDE HCL 10 MG/10 ML UDC GT SCH ×3 (05:44→21:04)
--- NOTE | 2018-10-11 05:49 | NUR ---
RT NOTED PT REC[facility]D [facility] ON AC MODE. NO RESP DISTRESS OR SOB NOTED. SX'D FOR MOD AMT OF PALE YELLOW SECRETIONS. ALARMS ARE SET AND AUDIBLE. VENT PLUGGED INTO RED OUTLET. AMBU BAG BEDSIDE. WILL CONTINUE TO MONITOR. Addendum: 10/11/18 at 0549 by LADAN WICK RT Amended: Links added.
[2018-10-11 07:26] LABS: BASOPHILS # (AUTO) 0.1 /CMM (0.0-0.2); BASOPHILS % (AUTO) 0.7 % (0.0-2.0); EOSINOPHILS % (AUTO) 7.1 % (0.0-6.0); HEMATOCRIT 25 % (33-45); HEMOGLOBIN 8.6 g/dL (11.5-14.8); LYMPHOCYTES # (AUTO) 2.7 /CMM (0.8-4.8); LYMPHOCYTES % (AUTO) 26.3 % (20.0-44.0); MEAN CORPUSCULAR HGB CONC 34 g/dl (31.0-36.0); MEAN CORPUSCULAR VOLUME 98 fL (82-100); MONOCYTES # (AUTO) 1.1 /CMM (0.1-1.30); MONOCYTES % (AUTO) 10.5 % (2.0-12.0); NEUTROPHILS # (AUTO) 5.7 /CMM (1.8-8.9); NEUTROPHILS % (AUTO) 55.4 % (43.0-81.0); PLATELET COUNT (AUTO) 363 /CMM (150-450); RED BLOOD CELL COUNT(AUTO) 2.54 MIL/uL (4.0-5.2); WHITE BLOOD COUNT (AUTO) 10.4 K/uL (4.3-11.0)
[2018-10-11 07:27] LABS: CREATININE 1.9 mg/dL (0.6-1.3); POTASSIUM 3.4 mmol/L (3.5-5.1)
[2018-10-11 07:47] VITALS: BP 126/64
[2018-10-11] MEDS: SIMETHICONE SUSP 40 MG/0.6 ML BOTTLE GT SCH ×2 (08:00→20:00)
[2018-10-11] MEDS: ACIDOPHILUS/BULGARICUS 1 EACH TAB.CHEW GT SCH ×2 (09:00→17:04)
[2018-10-11] MEDS: VIT A TP SCH ×2 (09:00→21:04)
[2018-10-11] MEDS: CALCIUM CARBONATE 500 MG TAB.CHEW GT SCH ×2 (09:00→17:04)
[2018-10-11] MEDS: LEVETIRACETAM SOL (5 ML) 100 MG/ML UDC GT SCH ×2 (09:00→21:04)
[2018-10-11] MEDS: TRILEPTAL GT SCH ×2 (09:00→21:04)
[2018-10-11] MEDS: DOCUSATE SODIUM LIQ 100 MG/10 ML UDC GT SCH (09:00)
[2018-10-11] MEDS: PROSOURCE DIETARY LIQUID 30 ML LIQUID GT SCH ×2 (09:00→17:04)
[2018-10-11] MEDS: Z GUARD REMEDY 4 OZ OINT TP SCH ×4 (09:00→21:05)
[2018-10-11] MEDS: [UNRECOGNIZED DRUG - OTHER] TP SCH ×2 (09:00→21:04)
[2018-10-11] MEDS: HYDROGEN PEROXIDE 480 ML BOTTLE TP SCH ×2 (09:00→21:04)
[2018-10-11] MEDS: FERROUS SULFATE - FOR SA ONLY 330 MG/7.5 ML UDC GT SCH ×2 (09:00→17:04)
[2018-10-11] MEDS: MULTIVIT W/MINERALS 1 TAB TABLET GT SCH (09:00)
[2018-10-11 09:08] LABS: BAND % (MANUAL) 1 % (0.0-5.0); EOSINOPHILS % (MANUAL) 11 % (0-4); LYMPHOCYTES % (MANUAL) 25 % (16-48); MONOCYTES % (MANUAL) 5 % (0-11.0); NEUTROPHILS % (MANUAL) 58 (42-76)
--- NOTE | 2018-10-11 09:45 | NUR ---
Relayed CBC and BMP results to Dr Luis.
--- NOTE | 2018-10-11 11:40 | NUR ---
Received order to give Potassium Chloride 10 mEq GT x 1 for hypokalemia, K 3.4. Informed pt's sister.
[2018-10-11] MEDS: CEFTAZIDIME 1 G in IV D5W 50 ML IV SCH ×3 (12:00)
[2018-10-11] MEDS ORDERED: POTASSIUM CHLORIDE 20 MEQ POWDER PACKET GT SCH (12:00)
--- NOTE | 2018-10-11 18:09 | NUR ---
RT END OF THE SHIFT REPORT, PT. 48 Y OLD FEMALE REC. 0700 AM AWAKE BUT NOT RESPONSIVE. PT. IS TRACH'D SHILEY # 8 XLT ON MECHANICAL VENT. WITH NOTED AC MODE. NO RESP DISTRESS NOTED. EQUAL CHEST RISE NOTED, B/S RHONCHI BILATERALLY SX'D FOR MOD. YELLOW SECRETIONS. TX'S GIVEN INLINE AND NO ADVERSE REACTION NOTED. ALARMS ARE SET AND FUNCTIONAL. VENT PLUGGED INTO RED OUTLET. HME CHANGED BIOMATERIALS ENGINEER DONE. AMBU BAG REMAIN AT THE BEDSIDE. WILL CONTINUE TO MONITOR CLOSELY AND REPORT WILL PASS TO PM SHIFT. Addendum: 10/11/18 at 1810 by SHIMA CHILDS RT Amended: Links added.
[2018-10-11] MEDS: INSULIN REGULAR, HUMAN 100 UNIT/ML 3 ML VIAL SQ PRN (18:42)
[2018-10-11 19:47] VITALS: BP 125/73
[2018-10-11] MEDS: ASCORBIC ACID 500 MG TABLET GT SCH (21:04)
[2018-10-12] MEDS: ALBUTEROL FS 2.5 MG/3 ML VIAL.NEB NEB SCH ×4 (01:04→19:40)
[2018-10-12] MEDS: GABAPENTIN 300 MG CAPSULE GT SCH ×3 (05:43→20:59)
[2018-10-12] MEDS: METOCLOPRAMIDE HCL 10 MG/10 ML UDC GT SCH ×3 (05:43→20:59)
[2018-10-12] MEDS: DEXILANT 30 MG GT SCH (05:43)
[2018-10-12] MEDS: BLOOD SUGAR DIAGNOSTIC 1 EACH STRIP IN SCH ×2 (05:43→18:34)
[2018-10-12] MEDS: SIMETHICONE SUSP 40 MG/0.6 ML BOTTLE GT SCH ×2 (08:00→20:59)
[2018-10-12 08:02] VITALS: BP 117/72
[2018-10-12] MEDS: Z GUARD REMEDY 4 OZ OINT TP SCH ×4 (09:00→20:59)
[2018-10-12] MEDS: TRILEPTAL GT SCH ×2 (09:00→20:59)
[2018-10-12] MEDS: DOCUSATE SODIUM LIQ 100 MG/10 ML UDC GT SCH (09:00)
[2018-10-12] MEDS: FERROUS SULFATE - FOR SA ONLY 330 MG/7.5 ML UDC GT SCH ×2 (09:00→16:58)
[2018-10-12] MEDS: LEVETIRACETAM SOL (5 ML) 100 MG/ML UDC GT SCH ×2 (09:00→20:59)
[2018-10-12] MEDS: HYDROGEN PEROXIDE 480 ML BOTTLE TP SCH ×2 (09:00→20:59)
[2018-10-12] MEDS: PROSOURCE DIETARY LIQUID 30 ML LIQUID GT SCH ×2 (09:00→16:58)
[2018-10-12] MEDS: VIT A TP SCH ×2 (09:00→20:59)
[2018-10-12] MEDS: CALCIUM CARBONATE 500 MG TAB.CHEW GT SCH ×2 (09:00→16:58)
[2018-10-12] MEDS: MULTIVIT W/MINERALS 1 TAB TABLET GT SCH (09:00)
[2018-10-12] MEDS: [UNRECOGNIZED DRUG - OTHER] TP SCH ×2 (09:00→20:59)
[2018-10-12] MEDS: ACIDOPHILUS/BULGARICUS 1 EACH TAB.CHEW GT SCH ×2 (09:00→16:58)
--- NOTE | 2018-10-12 10:00 | NUR ---
Seen and examined by Dr. Felix, NNO given. Patient continue on IV ATB with no adverse reaction noted. V/S 97.8, 92, 16, 100% 117/72.
[2018-10-12] MEDS: CEFTAZIDIME 1 G in IV D5W 50 ML IV SCH ×3 (12:00)
--- NOTE | 2018-10-12 17:00 | NUR ---
Notified COMBINE OPERATOR Lj, that urine culture is negative for ESBL with order to DC contact ioslation for ESBL urine, Also asked COMBINE OPERATOR to review current IV ATB, per pharmacist request, urine culture id negative. Resident sister Beckie visiting and patient in a good mood.
[2018-10-12] MEDS: INSULIN REGULAR, HUMAN 100 UNIT/ML 3 ML VIAL SQ PRN (18:35)
--- NOTE | 2018-10-12 19:21 | NUR ---
NAN Calhoun reviewed lab result and urine culture with new order to send another specimen. According to Gertrude, current ATB is working and she wants to keep it for total of 7 days. Endorsed.
[2018-10-12 20:32] VITALS: BP 119/53
[2018-10-12] MEDS: ASCORBIC ACID 500 MG TABLET GT SCH (20:59)
[2018-10-13] MEDS: ALBUTEROL FS 2.5 MG/3 ML VIAL.NEB NEB SCH ×4 (01:28→19:23)
[2018-10-13] MEDS: GABAPENTIN 300 MG CAPSULE GT SCH ×3 (05:00→20:54)
[2018-10-13] MEDS: METOCLOPRAMIDE HCL 10 MG/10 ML UDC GT SCH ×3 (05:00→20:54)
[2018-10-13] MEDS: DEXILANT 30 MG GT SCH (06:02)
[2018-10-13] MEDS: BLOOD SUGAR DIAGNOSTIC 1 EACH STRIP IN SCH ×2 (06:02→17:22)
--- NOTE | 2018-10-13 06:54 | NUR ---
T PATIENT REC'D TRACHED ON [facility] VENT WITH ORDERED SETTING APRIL WELL. VENT ALARMS CHECKED + AUDIBLE. TRACH SECURE AND IN PROPER POSITION. CUFF CHECKED CHANGE MANAGEMENT. PATIENT SUCTIONED WITH MOD FLAVIA PALE SEMITHICK SECRETIONS. AMBU BAG AT HOB Addendum: 10/13/18 at 0910 by ELIZABETH CAPONE RT Amended: Links added.
[2018-10-13] MEDS: SIMETHICONE SUSP 40 MG/0.6 ML BOTTLE GT SCH ×2 (08:00→20:54)
[2018-10-13] MEDS: PROSOURCE DIETARY LIQUID 30 ML LIQUID GT SCH ×2 (09:00→17:22)
[2018-10-13] MEDS: [UNRECOGNIZED DRUG - OTHER] TP SCH ×2 (09:00→20:54)
[2018-10-13] MEDS: MULTIVIT W/MINERALS 1 TAB TABLET GT SCH (09:00)
[2018-10-13] MEDS: FERROUS SULFATE - FOR SA ONLY 330 MG/7.5 ML UDC GT SCH ×2 (09:00→17:22)
[2018-10-13] MEDS: DOCUSATE SODIUM LIQ 100 MG/10 ML UDC GT SCH (09:00)
[2018-10-13] MEDS: CALCIUM CARBONATE 500 MG TAB.CHEW GT SCH ×2 (09:00→17:22)
[2018-10-13] MEDS: TRILEPTAL GT SCH ×2 (09:00→20:54)
[2018-10-13] MEDS: ACIDOPHILUS/BULGARICUS 1 EACH TAB.CHEW GT SCH ×2 (09:00→17:22)
[2018-10-13] MEDS: HYDROGEN PEROXIDE 480 ML BOTTLE TP SCH ×2 (09:00→20:54)
[2018-10-13] MEDS: LEVETIRACETAM SOL (5 ML) 100 MG/ML UDC GT SCH ×2 (09:00→20:54)
[2018-10-13] MEDS: VIT A TP SCH ×2 (09:00→20:54)
[2018-10-13] MEDS: Z GUARD REMEDY 4 OZ OINT TP SCH ×4 (09:00→20:54)
[2018-10-13] MEDS: CEFTAZIDIME 1 G in IV D5W 50 ML IV SCH ×3 (12:00)
--- NOTE | 2018-10-13 14:50 | NUR ---
SW helped dinesh's sister Arabella with medical forms. SW spoke to [facility] Inspector Precision to clarify what documents Medical needed. Sw helped Arabella filled the forms and faxed them to [facility] manager tax.
[2018-10-13] MEDS: INSULIN REGULAR, HUMAN 100 UNIT/ML 3 ML VIAL SQ PRN (17:23)
[2018-10-13] MEDS: GLUCERNA 1.2 1,000 ML BOTTLE GT PRN (18:14)
--- NOTE | 2018-10-13 19:00 | NUR ---
PLUMBERS AND TOP HELPERS Gertrude Calhoun reviewed labs and current ATB. She said that she placed an order for IV Vancomycin by mistake and requested this nurse to write a TO to discontinue the order. Order carried out.
[2018-10-13 20:22] VITALS: BP 129/67
[2018-10-13] MEDS: ASCORBIC ACID 500 MG TABLET GT SCH (20:54)
[2018-10-14] MEDS: CEFTAZIDIME 1 G in IV D5W 50 ML IV SCH ×2 (00:15→12:00)
[2018-10-14] MEDS: ALBUTEROL FS 2.5 MG/3 ML VIAL.NEB NEB SCH ×4 (01:22→20:04)
[2018-10-14] MEDS: METOCLOPRAMIDE HCL 10 MG/10 ML UDC GT SCH ×3 (05:12→21:03)
[2018-10-14] MEDS: GABAPENTIN 300 MG CAPSULE GT SCH ×3 (05:12→21:03)
[2018-10-14] MEDS: DEXILANT 30 MG GT SCH (05:12)
[2018-10-14] MEDS: INSULIN REGULAR, HUMAN 100 UNIT/ML 3 ML VIAL SQ PRN ×2 (05:51→17:11)
[2018-10-14] MEDS: BLOOD SUGAR DIAGNOSTIC 1 EACH STRIP IN SCH ×2 (05:51→17:11)
[2018-10-14 07:57] VITALS: BP 124/63
[2018-10-14] MEDS: SIMETHICONE SUSP 40 MG/0.6 ML BOTTLE GT SCH ×2 (08:00→20:00)
[2018-10-14] MEDS: ACIDOPHILUS/BULGARICUS 1 EACH TAB.CHEW GT SCH ×2 (09:44→17:11)
[2018-10-14] MEDS: FERROUS SULFATE - FOR SA ONLY 330 MG/7.5 ML UDC GT SCH ×2 (09:44→17:11)
[2018-10-14] MEDS: MULTIVIT W/MINERALS 1 TAB TABLET GT SCH (09:44)
[2018-10-14] MEDS: DOCUSATE SODIUM LIQ 100 MG/10 ML UDC GT SCH (09:44)
[2018-10-14] MEDS: PROSOURCE DIETARY LIQUID 30 ML LIQUID GT SCH ×2 (09:44→17:11)
[2018-10-14] MEDS: LEVETIRACETAM SOL (5 ML) 100 MG/ML UDC GT SCH ×2 (09:44→21:03)
[2018-10-14] MEDS: TRILEPTAL GT SCH ×2 (09:44→21:03)
[2018-10-14] MEDS: [UNRECOGNIZED DRUG - OTHER] TP SCH ×2 (09:45→21:03)
[2018-10-14] MEDS: CALCIUM CARBONATE 500 MG TAB.CHEW GT SCH ×2 (09:45→17:11)
[2018-10-14] MEDS: HYDROGEN PEROXIDE 480 ML BOTTLE TP SCH ×2 (09:45→21:03)
[2018-10-14] MEDS: Z GUARD REMEDY 4 OZ OINT TP SCH ×4 (09:45→21:03)
[2018-10-14] MEDS: VIT A TP SCH ×2 (09:45→21:03)
[2018-10-14] MEDS: GLUCERNA 1.2 1,000 ML BOTTLE GT PRN (17:38)
[2018-10-14 20:00] VITALS: BP 118/66
--- NOTE | 2018-10-14 20:04 | NUR ---
RT NOTE PATIENT RECEIVED TRACH'D IN STABLE CONDITION ON MECHANICAL VENT. PATIENT IS TOLERATING CURRENT ORDERED VENT SETTINGS. PATIENT TRACH IS PATENT AND SECURE. ALARMS ARE SET AND AUDIBLE. MECHANICAL VENT IS PLUGGED INTO RED OUTLET. EMERGENCY EQUIPMENT IS PLACED AT BEDSIDE. Addendum: 10/14/18 at 2140 by FRANCO ALBARRAN RT Amended: Links added.
[2018-10-14] MEDS: ASCORBIC ACID 500 MG TABLET GT SCH (21:03)
[2018-10-15] MEDS: CEFTAZIDIME 1 G in IV D5W 50 ML IV SCH ×3 (00:22→23:28)
[2018-10-15] MEDS: ALBUTEROL FS 2.5 MG/3 ML VIAL.NEB NEB SCH ×4 (01:34→20:06)
[2018-10-15] MEDS: METOCLOPRAMIDE HCL 10 MG/10 ML UDC GT SCH ×3 (05:11→20:25)
[2018-10-15] MEDS: DEXILANT 30 MG GT SCH (05:11)
[2018-10-15] MEDS: GABAPENTIN 300 MG CAPSULE GT SCH ×3 (05:11→20:25)
[2018-10-15] MEDS: INSULIN REGULAR, HUMAN 100 UNIT/ML 3 ML VIAL SQ PRN ×2 (05:56→17:49)
[2018-10-15] MEDS: BLOOD SUGAR DIAGNOSTIC 1 EACH STRIP IN SCH ×2 (05:56→17:49)
[2018-10-15 07:47] VITALS: BP 113/90
[2018-10-15] MEDS: SIMETHICONE SUSP 40 MG/0.6 ML BOTTLE GT SCH ×2 (08:33→20:25)
[2018-10-15] MEDS: ACIDOPHILUS/BULGARICUS 1 EACH TAB.CHEW GT SCH ×2 (08:34→17:49)
[2018-10-15] MEDS: PROSOURCE DIETARY LIQUID 30 ML LIQUID GT SCH ×2 (08:34→17:49)
[2018-10-15] MEDS: LEVETIRACETAM SOL (5 ML) 100 MG/ML UDC GT SCH ×2 (08:34→20:25)
[2018-10-15] MEDS: MULTIVIT W/MINERALS 1 TAB TABLET GT SCH (08:34)
[2018-10-15] MEDS: FERROUS SULFATE - FOR SA ONLY 330 MG/7.5 ML UDC GT SCH ×2 (08:34→17:48)
[2018-10-15] MEDS: TRILEPTAL GT SCH ×2 (08:34→20:25)
[2018-10-15] MEDS: DOCUSATE SODIUM LIQ 100 MG/10 ML UDC GT SCH (08:34)
[2018-10-15] MEDS: CALCIUM CARBONATE 500 MG TAB.CHEW GT SCH ×2 (08:34→17:49)
[2018-10-15] MEDS: Z GUARD REMEDY 4 OZ OINT TP SCH ×4 (09:00→20:25)
[2018-10-15] MEDS: HYDROGEN PEROXIDE 480 ML BOTTLE TP SCH ×2 (09:00→20:25)
[2018-10-15] MEDS: [UNRECOGNIZED DRUG - OTHER] TP SCH ×2 (09:00→20:25)
[2018-10-15] MEDS: VIT A TP SCH ×2 (09:00→20:25)
[2018-10-15] MEDS: GLUCERNA 1.2 1,000 ML BOTTLE GT PRN (11:23)
--- NOTE | 2018-10-15 17:00 | NUR ---
RT NOTES TRACH TUBE IN PLACE, PATENT AND SECURED WITH TRACH TIE. VENT PLUGGED ON RED OUTLET. ALARMS SET AND AUDIBLE. BACK UP TRACH AND AMBU BAG BY THE BED SIDE. PATIENT TOLERATE CURRENT SETTINGS WITH NO SIGNS OF ANY DISTRESS Addendum: 10/15/18 at 1701 by ADRIÁN THOMAS RT Amended: Links added.
[2018-10-15 19:58] VITALS: BP 136/63
[2018-10-15] MEDS: ASCORBIC ACID 500 MG TABLET GT SCH (20:25)
[2018-10-16] MEDS: ALBUTEROL FS 2.5 MG/3 ML VIAL.NEB NEB SCH ×4 (01:59→19:20)
[2018-10-16] MEDS: DEXILANT 30 MG GT SCH (05:33)
[2018-10-16] MEDS: MAGNESIUM HYDROXIDE 30 ML UDC GT PRN (05:33)
[2018-10-16] MEDS: GABAPENTIN 300 MG CAPSULE GT SCH ×3 (05:33→20:02)
[2018-10-16] MEDS: BLOOD SUGAR DIAGNOSTIC 1 EACH STRIP IN SCH ×2 (05:33→17:23)
[2018-10-16] MEDS: METOCLOPRAMIDE HCL 10 MG/10 ML UDC GT SCH ×3 (05:33→20:02)
[2018-10-16] MEDS: GLUCERNA 1.2 1,000 ML BOTTLE GT PRN ×2 (05:34→23:39)
[2018-10-16] MEDS: INSULIN REGULAR, HUMAN 100 UNIT/ML 3 ML VIAL SQ PRN ×2 (05:34→17:24)
[2018-10-16 07:36] VITALS: BP 118/74
[2018-10-16] MEDS: SIMETHICONE SUSP 40 MG/0.6 ML BOTTLE GT SCH ×2 (08:00→20:02)
[2018-10-16] MEDS: LEVETIRACETAM SOL (5 ML) 100 MG/ML UDC GT SCH ×2 (09:21→20:02)
[2018-10-16] MEDS: ACIDOPHILUS/BULGARICUS 1 EACH TAB.CHEW GT SCH ×2 (09:21→16:20)
[2018-10-16] MEDS: PROSOURCE DIETARY LIQUID 30 ML LIQUID GT SCH ×2 (09:21→16:20)
[2018-10-16] MEDS: HYDROGEN PEROXIDE 480 ML BOTTLE TP SCH ×2 (09:21→20:02)
[2018-10-16] MEDS: CALCIUM CARBONATE 500 MG TAB.CHEW GT SCH ×2 (09:21→16:20)
[2018-10-16] MEDS: Z GUARD REMEDY 4 OZ OINT TP SCH ×4 (09:21→20:02)
[2018-10-16] MEDS: DOCUSATE SODIUM LIQ 100 MG/10 ML UDC GT SCH (09:21)
[2018-10-16] MEDS: FERROUS SULFATE - FOR SA ONLY 330 MG/7.5 ML UDC GT SCH ×2 (09:21→16:20)
[2018-10-16] MEDS: VIT A TP SCH ×2 (09:21→20:02)
[2018-10-16] MEDS: [UNRECOGNIZED DRUG - OTHER] TP SCH ×2 (09:21→20:02)
[2018-10-16] MEDS: MULTIVIT W/MINERALS 1 TAB TABLET GT SCH (09:21)
[2018-10-16] MEDS: TRILEPTAL GT SCH ×2 (09:21→20:02)
[2018-10-16] MEDS: CEFTAZIDIME 1 G in IV D5W 50 ML IV SCH (12:30)
[2018-10-16 19:36] VITALS: BP 145/61
[2018-10-16] MEDS: ASCORBIC ACID 500 MG TABLET GT SCH (20:02)
[2018-10-17] MEDS: CEFTAZIDIME 1 G in IV D5W 50 ML IV SCH ×2
[2018-10-17] MEDS: ALBUTEROL FS 2.5 MG/3 ML VIAL.NEB NEB SCH ×4 (01:16→19:53)
[2018-10-17] MEDS: BLOOD SUGAR DIAGNOSTIC 1 EACH STRIP IN SCH ×2 (05:14→17:12)
[2018-10-17] MEDS: METOCLOPRAMIDE HCL 10 MG/10 ML UDC GT SCH ×3 (05:14→21:05)
[2018-10-17] MEDS: INSULIN REGULAR, HUMAN 100 UNIT/ML 3 ML VIAL SQ PRN ×2 (05:14→17:12)
[2018-10-17] MEDS: DEXILANT 30 MG GT SCH (05:14)
[2018-10-17] MEDS: GABAPENTIN 300 MG CAPSULE GT SCH ×3 (05:14→21:05)
[2018-10-17 07:49] VITALS: BP 107/63
--- NOTE | 2018-10-17 07:52 | NUR ---
RT PATIENT REC'D TRACHED ON [facility] VENT WITH ORDERED SETTING APRIL WELL. VENT ALARMS CHECKED + AUDIBLE. TRACH SECURE AND IN PROPER POSITION. CUFF CHECKED KNIT GOODS WASHER. PATIENT SUCTIONED WITH MOD AMT PALE SEMITHICK SECRETIONS. AMBU BAG AT HOB Addendum: 10/17/18 at 1553 by ELIZABETH CAPONE RT Amended: Links added.
[2018-10-17] MEDS: SIMETHICONE SUSP 40 MG/0.6 ML BOTTLE GT SCH ×2 (08:00→20:00)
[2018-10-17] MEDS: ACIDOPHILUS/BULGARICUS 1 EACH TAB.CHEW GT SCH ×2 (09:40→17:09)
[2018-10-17] MEDS: Z GUARD REMEDY 4 OZ OINT TP SCH ×4 (09:40→21:05)
[2018-10-17] MEDS: [UNRECOGNIZED DRUG - OTHER] TP SCH ×2 (09:40→21:05)
[2018-10-17] MEDS: DOCUSATE SODIUM LIQ 100 MG/10 ML UDC GT SCH (09:40)
[2018-10-17] MEDS: MULTIVIT W/MINERALS 1 TAB TABLET GT SCH (09:40)
[2018-10-17] MEDS: HYDROGEN PEROXIDE 480 ML BOTTLE TP SCH ×2 (09:40→21:05)
[2018-10-17] MEDS: LEVETIRACETAM SOL (5 ML) 100 MG/ML UDC GT SCH ×2 (09:40→21:04)
[2018-10-17] MEDS: TRILEPTAL GT SCH ×2 (09:40→21:05)
[2018-10-17] MEDS: VIT A TP SCH ×2 (09:40→21:05)
[2018-10-17] MEDS: CALCIUM CARBONATE 500 MG TAB.CHEW GT SCH ×2 (09:40→17:09)
[2018-10-17] MEDS: PROSOURCE DIETARY LIQUID 30 ML LIQUID GT SCH ×2 (09:40→17:09)
[2018-10-17] MEDS: FERROUS SULFATE - FOR SA ONLY 330 MG/7.5 ML UDC GT SCH ×2 (09:40→17:09)
--- NOTE | 2018-10-17 10:00 | NUR ---
[facility] pharmacist called regarding final results of urine culture , Ent. Faecalis - vanco resistant. Patient afebrile at this time, has yellow urine output. Patient closely monitored. Not in distress.
--- NOTE | 2018-10-17 12:00 | NUR ---
Called and left message to NAN Loredo, waiting for call back.
--- NOTE | 2018-10-17 15:30 | NUR ---
PLANT CYTOLOGIST Ms. Loredo called back with new order to start zyvox 600 mg via GT x 5 days. Faxed to [facility] pharmacy, Pharmacist Tavia called and informed that Zyvox is not covered and needs prior authorization, she recommended Macrobid 100 mg via GT X 5 days for Ent. Faecalis - vanco resistant. Called NAN Loredo and made aware, waiting for call back.
--- NOTE | 2018-10-17 16:40 | NUR ---
NAN Loredo called back with new orders ok to start macrobid 100 mg via GT BID x 5 days[address] Placed patient on contact isolation due to vanco resitant in urine, al precautions observed and followed. Called and spoke to patients' sister Beckie, made her aware of new ATB and pt., will be on contact isolation. She verbalized concerned that she wants her sister to be in a single room, explained protocol of isolation . She verbalized understanding. She will talk to munitions handler
[2018-10-17] MEDS: NITROFURANTOIN/NITROFURAN MAC 100 MG CAPSULE PO SCH (17:46)
[2018-10-17 20:21] VITALS: BP 103/64
[2018-10-17] MEDS: ASCORBIC ACID 500 MG TABLET GT SCH (21:05)
[2018-10-18] MEDS: ALBUTEROL FS 2.5 MG/3 ML VIAL.NEB NEB SCH ×4 (01:26→19:22)
[2018-10-18] MEDS: METOCLOPRAMIDE HCL 10 MG/10 ML UDC GT SCH ×3 (05:00→20:58)
[2018-10-18] MEDS: NITROFURANTOIN/NITROFURAN MAC 100 MG CAPSULE PO SCH ×2 (05:00→17:41)
[2018-10-18] MEDS: GABAPENTIN 300 MG CAPSULE GT SCH ×3 (05:00→20:58)
--- NOTE | 2018-10-18 05:32 | NUR ---
pt rec'd trached on [facility] vent on ac mode. no resp distress or sob noted. trach patent and secured. sx'd for mod amt of pale yellow secretions. alarms are set and audible. vent plugged into red outlet. ambu bag bedside. will cotinue to monitor Addendum: 10/18/18 at 0532 by LADAN WICK RT Amended: Links added.
[2018-10-18] MEDS: DEXILANT 30 MG GT SCH (06:03)
[2018-10-18] MEDS: BLOOD SUGAR DIAGNOSTIC 1 EACH STRIP IN SCH ×2 (06:03→18:46)
[2018-10-18 07:25] VITALS: BP 125/68
[2018-10-18] MEDS: SIMETHICONE SUSP 40 MG/0.6 ML BOTTLE GT SCH ×2 (08:36→20:58)
[2018-10-18] MEDS: ACIDOPHILUS/BULGARICUS 1 EACH TAB.CHEW GT SCH ×2 (08:36→17:41)
[2018-10-18] MEDS: VIT A TP SCH ×2 (08:36→20:58)
[2018-10-18] MEDS: LEVETIRACETAM SOL (5 ML) 100 MG/ML UDC GT SCH ×2 (08:36→20:58)
[2018-10-18] MEDS: MULTIVIT W/MINERALS 1 TAB TABLET GT SCH (08:36)
[2018-10-18] MEDS: TRILEPTAL GT SCH ×2 (08:36→20:58)
[2018-10-18] MEDS: FERROUS SULFATE - FOR SA ONLY 330 MG/7.5 ML UDC GT SCH ×2 (08:36→17:41)
[2018-10-18] MEDS: [UNRECOGNIZED DRUG - OTHER] TP SCH ×2 (08:36→20:58)
[2018-10-18] MEDS: CALCIUM CARBONATE 500 MG TAB.CHEW GT SCH ×2 (08:36→17:41)
[2018-10-18] MEDS: DOCUSATE SODIUM LIQ 100 MG/10 ML UDC GT SCH (08:36)
[2018-10-18] MEDS: PROSOURCE DIETARY LIQUID 30 ML LIQUID GT SCH ×2 (08:36→17:41)
[2018-10-18] MEDS: HYDROGEN PEROXIDE 480 ML BOTTLE TP SCH ×2 (08:37→20:58)
[2018-10-18] MEDS: Z GUARD REMEDY 4 OZ OINT TP SCH ×4 (08:37→20:59)
[2018-10-18] MEDS: INSULIN REGULAR, HUMAN 100 UNIT/ML 3 ML VIAL SQ PRN (18:47)
[2018-10-18 20:13] VITALS: BP 143/72
[2018-10-18] MEDS: ASCORBIC ACID 500 MG TABLET GT SCH (20:58)
[2018-10-19] MEDS: ALBUTEROL FS 2.5 MG/3 ML VIAL.NEB NEB SCH ×4 (01:54→20:31)
[2018-10-19] MEDS: NITROFURANTOIN/NITROFURAN MAC 100 MG CAPSULE PO SCH ×2 (05:36→17:00)
[2018-10-19] MEDS: METOCLOPRAMIDE HCL 10 MG/10 ML UDC GT SCH ×3 (05:36→21:05)
[2018-10-19] MEDS: GABAPENTIN 300 MG CAPSULE GT SCH ×3 (05:36→21:05)
[2018-10-19] MEDS: DEXILANT 30 MG GT SCH (05:36)
[2018-10-19] MEDS: BLOOD SUGAR DIAGNOSTIC 1 EACH STRIP IN SCH ×2 (05:59→18:18)
[2018-10-19 07:27] VITALS: BP 135/78
[2018-10-19 07:41] VITALS: BP 126/73
[2018-10-19] MEDS: CALCIUM CARBONATE 500 MG TAB.CHEW GT SCH ×2 (08:40→17:00)
[2018-10-19] MEDS: DOCUSATE SODIUM LIQ 100 MG/10 ML UDC GT SCH (08:40)
[2018-10-19] MEDS: FERROUS SULFATE - FOR SA ONLY 330 MG/7.5 ML UDC GT SCH ×2 (08:40→17:00)
[2018-10-19] MEDS: SIMETHICONE SUSP 40 MG/0.6 ML BOTTLE GT SCH ×2 (08:40→19:36)
[2018-10-19] MEDS: ACIDOPHILUS/BULGARICUS 1 EACH TAB.CHEW GT SCH ×2 (08:40→17:00)
[2018-10-19] MEDS: PROSOURCE DIETARY LIQUID 30 ML LIQUID GT SCH ×2 (08:40→17:00)
[2018-10-19] MEDS: LEVETIRACETAM SOL (5 ML) 100 MG/ML UDC GT SCH ×2 (08:40→21:05)
[2018-10-19] MEDS: HYDROGEN PEROXIDE 480 ML BOTTLE TP SCH ×2 (08:41→21:05)
[2018-10-19] MEDS: TRILEPTAL GT SCH ×2 (08:41→21:05)
[2018-10-19] MEDS: MULTIVIT W/MINERALS 1 TAB TABLET GT SCH (08:41)
[2018-10-19] MEDS: Z GUARD REMEDY 4 OZ OINT TP SCH ×4 (08:42→21:05)
[2018-10-19] MEDS: VIT A TP SCH ×2 (08:42→21:07)
[2018-10-19] MEDS: [UNRECOGNIZED DRUG - OTHER] TP SCH ×2 (08:42→21:07)
--- NOTE | 2018-10-19 09:00 | NUR ---
Seen and examined by Dr. Felix, NNO given.
[2018-10-19] MEDS: INSULIN REGULAR, HUMAN 100 UNIT/ML 3 ML VIAL SQ PRN (18:19)
--- NOTE | 2018-10-19 19:00 | NUR ---
Seen and examined by Dr. Luis, NNO given.
[2018-10-19] MEDS: ASCORBIC ACID 500 MG TABLET GT SCH (21:05)
--- NOTE | 2018-10-20 00:18 | NUR ---
PT REC'D TRACHED ON [facility] VENT ON AC MODE. NO RESP DISTRESS OR SOB NOTED. SX'D FOR MOD AMT OF PALE YELLOW SECRETIONS. TRACH PATENT AND SECURED. ALARMS ARE SET AND AUDIBLE. VENT PLUGGED INTO RED OUTLET. AMBU BAG BEDSIDE. WILL CONTINUE TO MONITOR. Addendum: 10/20/18 at 0019 by LADAN WICK RT Amended: Links added.
[2018-10-20] MEDS: ALBUTEROL FS 2.5 MG/3 ML VIAL.NEB NEB SCH ×4 (00:54→19:37)
[2018-10-20] MEDS: GLUCERNA 1.2 1,000 ML BOTTLE GT PRN ×2 (02:41→23:00)
[2018-10-20] MEDS: NITROFURANTOIN/NITROFURAN MAC 100 MG CAPSULE PO SCH ×2 (04:17→17:00)
[2018-10-20] MEDS: METOCLOPRAMIDE HCL 10 MG/10 ML UDC GT SCH ×3 (04:17→21:00)
[2018-10-20] MEDS: GABAPENTIN 300 MG CAPSULE GT SCH ×3 (04:17→21:00)
[2018-10-20] MEDS: DEXILANT 30 MG GT SCH (05:43)
[2018-10-20] MEDS: BLOOD SUGAR DIAGNOSTIC 1 EACH STRIP IN SCH ×2 (05:43→18:12)
[2018-10-20 08:00] VITALS: BP 121/73
[2018-10-20] MEDS: SIMETHICONE SUSP 40 MG/0.6 ML BOTTLE GT SCH ×2 (08:50→20:00)
[2018-10-20] MEDS: FERROUS SULFATE - FOR SA ONLY 330 MG/7.5 ML UDC GT SCH ×2 (08:50→17:00)
[2018-10-20] MEDS: ACIDOPHILUS/BULGARICUS 1 EACH TAB.CHEW GT SCH ×2 (08:50→17:00)
[2018-10-20] MEDS: DOCUSATE SODIUM LIQ 100 MG/10 ML UDC GT SCH (08:50)
[2018-10-20] MEDS: LEVETIRACETAM SOL (5 ML) 100 MG/ML UDC GT SCH ×2 (08:50→21:00)
[2018-10-20] MEDS: PROSOURCE DIETARY LIQUID 30 ML LIQUID GT SCH ×2 (08:52→17:00)
[2018-10-20] MEDS: TRILEPTAL GT SCH ×2 (08:52→21:00)
[2018-10-20] MEDS: CALCIUM CARBONATE 500 MG TAB.CHEW GT SCH ×2 (08:52→17:00)
[2018-10-20] MEDS: MULTIVIT W/MINERALS 1 TAB TABLET GT SCH (08:52)
[2018-10-20] MEDS: VIT A TP SCH ×2 (08:52→21:00)
[2018-10-20] MEDS: [UNRECOGNIZED DRUG - OTHER] TP SCH ×2 (08:52→21:00)
--- NOTE | 2018-10-20 08:56 | NUR ---
RT NOTE PATIENT REC'D TRACHED ON [facility] VENT WITH ORDERED SETTING APRIL WELL. VENT ALARMS CHECKED + AUDIBLE. TRACH SECURE AND IN PROPER POSITION. CUFF CHECKED CUSTOMER OPERATIONS SPECIALIST. PATIENT SUCTIONED WITH SMALL AMT PALE SEMITHICK SECRETIONS. AMBU BAG AT [facility] WILL CONTINUE TO MONITOR. Addendum: 10/20/18 at 0857 by MARCO FRANCOIS RT Amended: Links added.
[2018-10-20] MEDS: HYDROGEN PEROXIDE 480 ML BOTTLE TP SCH ×2 (09:00→21:00)
[2018-10-20] MEDS: Z GUARD REMEDY 4 OZ OINT TP SCH ×4 (09:00→21:00)
[2018-10-20 12:53] VITALS: BP 121/73
[2018-10-20] MEDS: LORAZEPAM 1 MG TABLET GT PRN (13:48)
--- NOTE | 2018-10-20 15:15 | NUR ---
Resident's sister Beckie verbalized that she wants to speak with Dr. Luis to discuss about patient's stomach, she said that she does not want to discuss it with the nurse. Dr. Luis notified and spoke with resident's sister with new order for CT scan pelvis/abdomen without contrast. Order carried out. Per admitting resident does not need new account to do this test. Spoke with Amarilys from Radiology Department, she said that they are busy right now and will do CT scan in AM. Patient does not need to be NPO. Beckie informed, she said that it is not emergency, it can be done whenever possible.
[2018-10-20] MEDS: INSULIN REGULAR, HUMAN 100 UNIT/ML 3 ML VIAL SQ PRN (18:33)
--- NOTE | 2018-10-20 19:37 | NUR ---
RT NOTE: RECEIVED TRACH PT ON [facility] VENT ON NOTED SETTINGS PER MD ORDERS. TRACH IS PATENT AND SECURED. RESIDENTIAL CAREGIVER DONE. Q6 BREATHING TX GIVEN WITH NO ADVERSE REACTION NOTED. SX DONE PRN. VENT PLUGGED INTO RED OUTLET. ALARMS ON AND AUDIBLE. NEVA BAG @ BEDSIDE. NO RESP DISTRESS AT THIS TIME. WILL CONT TO MONITOR PT. Addendum: 10/21/18 at 0429 by QIANA MARY RT Amended: Links added.
[2018-10-20 19:48] VITALS: BP 129/76
[2018-10-20] MEDS: ASCORBIC ACID 500 MG TABLET GT SCH (21:00)
[2018-10-21] MEDS: ALBUTEROL FS 2.5 MG/3 ML VIAL.NEB NEB SCH ×4 (01:15→19:35)
[2018-10-21] MEDS: NITROFURANTOIN/NITROFURAN MAC 100 MG CAPSULE PO SCH ×2 (05:29→16:31)
[2018-10-21] MEDS: DEXILANT 30 MG GT SCH (05:29)
[2018-10-21] MEDS: BLOOD SUGAR DIAGNOSTIC 1 EACH STRIP IN SCH ×2 (05:29→17:11)
[2018-10-21] MEDS: METOCLOPRAMIDE HCL 10 MG/10 ML UDC GT SCH ×3 (05:29→20:13)
[2018-10-21] MEDS: GABAPENTIN 300 MG CAPSULE GT SCH ×3 (05:29→20:11)
[2018-10-21] MEDS: INSULIN REGULAR, HUMAN 100 UNIT/ML 3 ML VIAL SQ PRN ×2 (05:30→17:12)
[2018-10-21 07:32] VITALS: BP 141/72
--- NOTE | 2018-10-21 07:36 | NUR ---
Female trach pt received unlabored on a mechanical vent. Pt trach is secure. Vent is plugged into a red outlet, alarms are set and audible, and BMV is at bedside. Addendum: 10/21/18 at 0736 by MARKIE PINO RT Amended: Links added.
[2018-10-21] MEDS: LEVETIRACETAM SOL (5 ML) 100 MG/ML UDC GT SCH ×2 (08:33→20:09)
[2018-10-21] MEDS: CALCIUM CARBONATE 500 MG TAB.CHEW GT SCH ×2 (08:33→16:31)
[2018-10-21] MEDS: SIMETHICONE SUSP 40 MG/0.6 ML BOTTLE GT SCH ×2 (08:33→20:09)
[2018-10-21] MEDS: TRILEPTAL GT SCH ×2 (08:33→20:13)
[2018-10-21] MEDS: MULTIVIT W/MINERALS 1 TAB TABLET GT SCH (08:33)
[2018-10-21] MEDS: DOCUSATE SODIUM LIQ 100 MG/10 ML UDC GT SCH (08:33)
[2018-10-21] MEDS: FERROUS SULFATE - FOR SA ONLY 330 MG/7.5 ML UDC GT SCH ×2 (08:33→16:30)
[2018-10-21] MEDS: PROSOURCE DIETARY LIQUID 30 ML LIQUID GT SCH ×2 (08:33→16:31)
[2018-10-21] MEDS: ACIDOPHILUS/BULGARICUS 1 EACH TAB.CHEW GT SCH ×2 (08:33→16:31)
[2018-10-21] MEDS: [UNRECOGNIZED DRUG - OTHER] TP SCH ×2 (09:00→20:14)
[2018-10-21] MEDS: HYDROGEN PEROXIDE 480 ML BOTTLE TP SCH ×2 (09:00→20:14)
[2018-10-21] MEDS: Z GUARD REMEDY 4 OZ OINT TP SCH ×4 (09:00→20:14)
[2018-10-21] MEDS: VIT A TP SCH ×2 (09:00→20:14)
[2018-10-21] MEDS: GLUCERNA 1.2 1,000 ML BOTTLE GT PRN (16:38)
[2018-10-21] MEDS: ASCORBIC ACID 500 MG TABLET GT SCH (20:14)
[2018-10-21 20:28] VITALS: BP 131/71
--- NOTE | 2018-10-21 22:15 | NUR ---
PT RCVD TRACH'D ON MECHANICAL VENT WITH CHARTED SETTINGS. TX APRIL WELL. SX DONE. PT TRACH IS PATENT AND SECURE. VENT IS PLUGGED INTO RED OUTLET. ALARMS ARE ON AND AUDIBLE. AMBU BAG AT BEDSIDE. WILL CONTINUE TO MONITOR. Addendum: 10/21/18 at 2216 by MICH AVILA RT Amended: Links added.
[2018-10-22] MEDS: ALBUTEROL FS 2.5 MG/3 ML VIAL.NEB NEB SCH ×4 (00:55→19:23)
[2018-10-22] MEDS: GABAPENTIN 300 MG CAPSULE GT SCH ×3 (05:08→21:04)
[2018-10-22] MEDS: METOCLOPRAMIDE HCL 10 MG/10 ML UDC GT SCH ×3 (05:10→21:04)
[2018-10-22] MEDS: DEXILANT 30 MG GT SCH (05:10)
[2018-10-22] MEDS: NITROFURANTOIN/NITROFURAN MAC 100 MG CAPSULE PO SCH (05:10)
[2018-10-22] MEDS: BLOOD SUGAR DIAGNOSTIC 1 EACH STRIP IN SCH ×2 (05:10→18:46)
[2018-10-22] MEDS: INSULIN REGULAR, HUMAN 100 UNIT/ML 3 ML VIAL SQ PRN (05:10)
--- NOTE | 2018-10-22 07:42 | NUR ---
Betsy pt received unlabored on a mechanical vent. Pt betsy is secure. Vent is plugged into a red outlet, alarms are set and audible, and BMV is at bedside. Addendum: 10/22/18 at 0743 by MARKIE PINO RT Amended: Links added.
[2018-10-22 07:53] VITALS: BP 122/70
[2018-10-22] MEDS: SIMETHICONE SUSP 40 MG/0.6 ML BOTTLE GT SCH ×2 (08:00→20:00)
[2018-10-22] MEDS: TRILEPTAL GT SCH ×2 (09:00→21:04)
[2018-10-22] MEDS: [UNRECOGNIZED DRUG - OTHER] TP SCH ×2 (09:00→21:15)
[2018-10-22] MEDS: MULTIVIT W/MINERALS 1 TAB TABLET GT SCH (09:00)
[2018-10-22] MEDS: FERROUS SULFATE - FOR SA ONLY 330 MG/7.5 ML UDC GT SCH ×2 (09:00→17:00)
[2018-10-22] MEDS: CALCIUM CARBONATE 500 MG TAB.CHEW GT SCH ×2 (09:00→17:00)
[2018-10-22] MEDS: ACIDOPHILUS/BULGARICUS 1 EACH TAB.CHEW GT SCH ×2 (09:00→17:00)
[2018-10-22] MEDS: VIT A TP SCH ×2 (09:00→21:15)
[2018-10-22] MEDS: LEVETIRACETAM SOL (5 ML) 100 MG/ML UDC GT SCH ×2 (09:00→21:04)
[2018-10-22] MEDS: PROSOURCE DIETARY LIQUID 30 ML LIQUID GT SCH ×2 (09:00→17:00)
[2018-10-22] MEDS: DOCUSATE SODIUM LIQ 100 MG/10 ML UDC GT SCH (09:00)
[2018-10-22] MEDS: Z GUARD REMEDY 4 OZ OINT TP SCH ×4 (09:00→21:15)
[2018-10-22] MEDS: HYDROGEN PEROXIDE 480 ML BOTTLE TP SCH ×2 (09:00→21:15)
--- NOTE | 2018-10-22 17:58 | NUR ---
Informed Dr Luis that pt's CT of abdomen and pelvis result is now available for his review. Addendum: 10/22/18 at 1804 by SARITA GOMEZ RN Dr Luis said he is aware of it.
[2018-10-22] MEDS: GLUCERNA 1.2 1,000 ML BOTTLE GT PRN (18:46)
--- NOTE | 2018-10-22 19:58 | NUR ---
PT RCVD TRACH'D ON MECHANICAL VENT WITH CHARTED SETTINGS. TX APRIL WELL. SX DONE. PT TRACH IS PATENT AND SECURE. VENT IS PLUGGED INTO RED OUTLET. ALARMS ARE ON AND AUDIBLE. AMBU BAG AT BEDSIDE. WILL CONTINUE TO MONITOR. Addendum: 10/22/18 at 1957 by MICH AVILA RT Amended: Links added.
[2018-10-22 20:05] VITALS: BP 127/76
[2018-10-22] MEDS: ASCORBIC ACID 500 MG TABLET GT SCH (21:15)
[2018-10-23] MEDS: ALBUTEROL FS 2.5 MG/3 ML VIAL.NEB NEB SCH ×4 (00:37→19:10)
[2018-10-23] MEDS: GABAPENTIN 300 MG CAPSULE GT SCH ×3 (05:35→21:36)
[2018-10-23] MEDS: INSULIN REGULAR, HUMAN 100 UNIT/ML 3 ML VIAL SQ PRN (05:35)
[2018-10-23] MEDS: BLOOD SUGAR DIAGNOSTIC 1 EACH STRIP IN SCH ×2 (05:35→18:19)
[2018-10-23] MEDS: METOCLOPRAMIDE HCL 10 MG/10 ML UDC GT SCH ×3 (05:35→21:36)
[2018-10-23] MEDS: DEXILANT 30 MG GT SCH (05:35)
[2018-10-23] MEDS: MAGNESIUM HYDROXIDE 30 ML UDC GT PRN (06:04)
[2018-10-23 07:47] VITALS: BP 104/56
[2018-10-23] MEDS: SIMETHICONE SUSP 40 MG/0.6 ML BOTTLE GT SCH ×2 (08:00→20:00)
[2018-10-23] MEDS: MULTIVIT W/MINERALS 1 TAB TABLET GT SCH (09:00)
[2018-10-23] MEDS: PROSOURCE DIETARY LIQUID 30 ML LIQUID GT SCH ×2 (09:59→16:40)
[2018-10-23] MEDS: TRILEPTAL GT SCH ×2 (09:59→21:36)
[2018-10-23] MEDS: HYDROGEN PEROXIDE 480 ML BOTTLE TP SCH ×2 (09:59→21:37)
[2018-10-23] MEDS: DOCUSATE SODIUM LIQ 100 MG/10 ML UDC GT SCH (09:59)
[2018-10-23] MEDS: FERROUS SULFATE - FOR SA ONLY 330 MG/7.5 ML UDC GT SCH ×2 (09:59→16:40)
[2018-10-23] MEDS: Z GUARD REMEDY 4 OZ OINT TP SCH ×4 (09:59→21:37)
[2018-10-23] MEDS: CALCIUM CARBONATE 500 MG TAB.CHEW GT SCH ×2 (09:59→16:40)
[2018-10-23] MEDS: ACIDOPHILUS/BULGARICUS 1 EACH TAB.CHEW GT SCH ×2 (09:59→16:40)
[2018-10-23] MEDS: [UNRECOGNIZED DRUG - OTHER] TP SCH ×2 (09:59→21:36)
[2018-10-23] MEDS: LEVETIRACETAM SOL (5 ML) 100 MG/ML UDC GT SCH ×2 (09:59→21:36)
[2018-10-23] MEDS: VIT A TP SCH ×2 (09:59→21:36)
[2018-10-23] MEDS: GLUCERNA 1.2 1,000 ML BOTTLE GT PRN (10:08)
[2018-10-23 19:45] VITALS: BP 129/69
[2018-10-23] MEDS: ASCORBIC ACID 500 MG TABLET GT SCH (21:36)
[2018-10-24] MEDS: ALBUTEROL FS 2.5 MG/3 ML VIAL.NEB NEB SCH ×4 (01:46→19:35)
--- NOTE | 2018-10-24 02:38 | NUR ---
PATIENT RECEIVED ON TRACH TO VENT WITH SETTINGS OF AC 16, 550 VT, 30%, +5. SUCTIONED FOR MINIMAL, THIN, WHITE SECRETIONS. GIVEN IN-LINE TREATMENTS WITH NO ADVERSE REACTIONS. AMBU BAG AT BEDSIDE. VENT ALARM AUDIBLE AND VISIBLE. VENT PLUGGED INTO RED OUTLET. Addendum: 10/24/18 at 0239 by SARA MOLINA RT Amended: Links added.
[2018-10-24] MEDS: METOCLOPRAMIDE HCL 10 MG/10 ML UDC GT SCH ×3 (05:38→20:55)
[2018-10-24] MEDS: BLOOD SUGAR DIAGNOSTIC 1 EACH STRIP IN SCH ×2 (05:38→17:38)
[2018-10-24] MEDS: GABAPENTIN 300 MG CAPSULE GT SCH ×3 (05:38→20:54)
[2018-10-24] MEDS: DEXILANT 30 MG GT SCH (05:38)
[2018-10-24] MEDS: INSULIN REGULAR, HUMAN 100 UNIT/ML 3 ML VIAL SQ PRN (05:39)
--- NOTE | 2018-10-24 06:00 | NUR ---
Seen and examined by Dr. Luis, no new order given.
[2018-10-24] MEDS: SIMETHICONE SUSP 40 MG/0.6 ML BOTTLE GT SCH ×2 (08:00→20:54)
[2018-10-24 08:34] VITALS: BP 119/63
[2018-10-24] MEDS: PROSOURCE DIETARY LIQUID 30 ML LIQUID GT SCH ×2 (09:52→17:09)
[2018-10-24] MEDS: MULTIVIT W/MINERALS 1 TAB TABLET GT SCH (09:52)
[2018-10-24] MEDS: FERROUS SULFATE - FOR SA ONLY 330 MG/7.5 ML UDC GT SCH ×2 (09:52→17:09)
[2018-10-24] MEDS: LEVETIRACETAM SOL (5 ML) 100 MG/ML UDC GT SCH ×2 (09:52→20:54)
[2018-10-24] MEDS: TRILEPTAL GT SCH ×2 (09:52→20:55)
[2018-10-24] MEDS: ACIDOPHILUS/BULGARICUS 1 EACH TAB.CHEW GT SCH ×2 (09:52→17:09)
[2018-10-24] MEDS: DOCUSATE SODIUM LIQ 100 MG/10 ML UDC GT SCH (09:52)
[2018-10-24] MEDS: CALCIUM CARBONATE 500 MG TAB.CHEW GT SCH ×2 (09:53→17:09)
[2018-10-24] MEDS: HYDROGEN PEROXIDE 480 ML BOTTLE TP SCH ×2 (09:53→20:55)
[2018-10-24] MEDS: VIT A TP SCH ×2 (09:53→20:55)
[2018-10-24] MEDS: Z GUARD REMEDY 4 OZ OINT TP SCH ×4 (09:53→20:55)
[2018-10-24] MEDS: [UNRECOGNIZED DRUG - OTHER] TP SCH ×2 (09:53→20:55)
[2018-10-24] MEDS: GLUCERNA 1.2 1,000 ML BOTTLE GT PRN (14:05)
--- NOTE | 2018-10-24 20:09 | NUR ---
RT NOTE PATIENT RECEIVED TRACHED ON MECHANICAL VENTILATION. AMBU BAG/BACK UP TRACH @ BEDSIDE. VENT PLUGGED TO RED OUTLET. ALARMS ON AND AUDIBLE. TX GIVEN, NO ADVERSE REACTIONS NOTED. SX DONE, SMALL THICK WHITE SECRETIONS NOTED. PATIENT STABLE AT THIS TIME. WILL MONITOR. Addendum: 10/24/18 at 2010 by BRIEN NEAL RT Amended: Links added.
[2018-10-24 20:33] VITALS: BP 142/53
[2018-10-24] MEDS: ASCORBIC ACID 500 MG TABLET GT SCH (20:55)
[2018-10-25] MEDS: ALBUTEROL FS 2.5 MG/3 ML VIAL.NEB NEB SCH ×4 (01:26→19:05)
[2018-10-25] MEDS: INSULIN REGULAR, HUMAN 100 UNIT/ML 3 ML VIAL SQ PRN ×2 (05:01→18:33)
[2018-10-25] MEDS: METOCLOPRAMIDE HCL 10 MG/10 ML UDC GT SCH ×3 (05:01→20:08)
[2018-10-25] MEDS: BLOOD SUGAR DIAGNOSTIC 1 EACH STRIP IN SCH ×2 (05:01→18:32)
[2018-10-25] MEDS: DEXILANT 30 MG GT SCH (05:01)
[2018-10-25] MEDS: GABAPENTIN 300 MG CAPSULE GT SCH ×3 (05:01→20:08)
[2018-10-25] MEDS: GLUCERNA 1.2 1,000 ML BOTTLE GT PRN (05:02)
[2018-10-25 07:56] VITALS: BP 126/68
[2018-10-25] MEDS: SIMETHICONE SUSP 40 MG/0.6 ML BOTTLE GT SCH ×2 (08:00→20:08)
--- NOTE | 2018-10-25 08:29 | NUR ---
RT NOTE PATIENT RECEIVED TRACHED ON MECHANICAL VENTILATION. AMBU BAG/BACK UP TRACH @ BEDSIDE. VENT PLUGGED TO RED OUTLET. ALARMS ON AND AUDIBLE. TX GIVEN, NO ADVERSE REACTIONS NOTED. SX DONE, MODERATE THICK WHITE SECRETIONS NOTED. PATIENT STABLE AT THIS TIME. WILL CONTINUE TO MONITOR. Addendum: 10/25/18 at 0830 by MARCO FRANCOIS RT Amended: Links added.
[2018-10-25] MEDS: TRILEPTAL GT SCH ×2 (09:00→20:08)
[2018-10-25] MEDS: Z GUARD REMEDY 4 OZ OINT TP SCH ×4 (09:00→20:09)
[2018-10-25] MEDS: MULTIVIT W/MINERALS 1 TAB TABLET GT SCH (09:00)
[2018-10-25] MEDS: CALCIUM CARBONATE 500 MG TAB.CHEW GT SCH ×2 (09:00→17:27)
[2018-10-25] MEDS: ACIDOPHILUS/BULGARICUS 1 EACH TAB.CHEW GT SCH ×2 (09:00→17:27)
[2018-10-25] MEDS: FERROUS SULFATE - FOR SA ONLY 330 MG/7.5 ML UDC GT SCH ×2 (09:00→17:27)
[2018-10-25] MEDS: [UNRECOGNIZED DRUG - OTHER] TP SCH ×2 (09:00→20:08)
[2018-10-25] MEDS: HYDROGEN PEROXIDE 480 ML BOTTLE TP SCH ×2 (09:00→20:09)
[2018-10-25] MEDS: LEVETIRACETAM SOL (5 ML) 100 MG/ML UDC GT SCH ×2 (09:00→20:08)
[2018-10-25] MEDS: PROSOURCE DIETARY LIQUID 30 ML LIQUID GT SCH ×2 (09:00→17:27)
[2018-10-25] MEDS: DOCUSATE SODIUM LIQ 100 MG/10 ML UDC GT SCH (09:00)
[2018-10-25] MEDS: VIT A TP SCH ×2 (09:00→20:08)
[2018-10-25 19:55] VITALS: BP 136/77
[2018-10-25] MEDS: ASCORBIC ACID 500 MG TABLET GT SCH (20:08)
[2018-10-26] MEDS: ALBUTEROL FS 2.5 MG/3 ML VIAL.NEB NEB SCH ×4 (01:46→19:44)
[2018-10-26] MEDS: METOCLOPRAMIDE HCL 10 MG/10 ML UDC GT SCH ×3 (05:02→20:09)
[2018-10-26] MEDS: GABAPENTIN 300 MG CAPSULE GT SCH ×3 (05:02→20:08)
[2018-10-26] MEDS: DEXILANT 30 MG GT SCH (05:02)
[2018-10-26] MEDS: INSULIN REGULAR, HUMAN 100 UNIT/ML 3 ML VIAL SQ PRN ×2 (05:48→18:41)
[2018-10-26] MEDS: BLOOD SUGAR DIAGNOSTIC 1 EACH STRIP IN SCH ×2 (05:48→18:41)
[2018-10-26] MEDS: SIMETHICONE SUSP 40 MG/0.6 ML BOTTLE GT SCH ×2 (08:00→20:08)
[2018-10-26 08:32] VITALS: BP 136/69
[2018-10-26] MEDS: Z GUARD REMEDY 4 OZ OINT TP SCH ×4 (09:00→20:09)
[2018-10-26] MEDS: ACIDOPHILUS/BULGARICUS 1 EACH TAB.CHEW GT SCH ×2 (09:00→16:51)
[2018-10-26] MEDS: MULTIVIT W/MINERALS 1 TAB TABLET GT SCH (09:00)
[2018-10-26] MEDS: TRILEPTAL GT SCH ×2 (09:00→20:08)
[2018-10-26] MEDS: PROSOURCE DIETARY LIQUID 30 ML LIQUID GT SCH ×2 (09:00→16:51)
[2018-10-26] MEDS: DOCUSATE SODIUM LIQ 100 MG/10 ML UDC GT SCH (09:00)
[2018-10-26] MEDS: LEVETIRACETAM SOL (5 ML) 100 MG/ML UDC GT SCH ×2 (09:00→20:08)
[2018-10-26] MEDS: CALCIUM CARBONATE 500 MG TAB.CHEW GT SCH ×2 (09:00→16:51)
[2018-10-26] MEDS: VIT A TP SCH ×2 (09:00→20:09)
[2018-10-26] MEDS: FERROUS SULFATE - FOR SA ONLY 330 MG/7.5 ML UDC GT SCH ×2 (09:00→16:51)
[2018-10-26] MEDS: HYDROGEN PEROXIDE 480 ML BOTTLE TP SCH ×2 (09:00→20:09)
[2018-10-26] MEDS: [UNRECOGNIZED DRUG - OTHER] TP SCH ×2 (09:00→20:09)
--- NOTE | 2018-10-26 09:00 | NUR ---
Seen and examined by Dr. Felix, no new order given.
[2018-10-26] MEDS: ASCORBIC ACID 500 MG TABLET GT SCH (20:09)
[2018-10-26] MEDS: GLUCERNA 1.2 1,000 ML BOTTLE GT PRN (20:54)
[2018-10-27] MEDS: ALBUTEROL FS 2.5 MG/3 ML VIAL.NEB NEB SCH ×4 (01:00→20:17)
[2018-10-27] MEDS: METOCLOPRAMIDE HCL 10 MG/10 ML UDC GT SCH ×3 (05:05→20:07)
[2018-10-27] MEDS: GABAPENTIN 300 MG CAPSULE GT SCH ×3 (05:05→20:07)
[2018-10-27] MEDS: DEXILANT 30 MG GT SCH (05:05)
[2018-10-27] MEDS: BLOOD SUGAR DIAGNOSTIC 1 EACH STRIP IN SCH ×2 (06:03→17:16)
[2018-10-27] MEDS: INSULIN REGULAR, HUMAN 100 UNIT/ML 3 ML VIAL SQ PRN ×2 (06:04→17:17)
[2018-10-27 06:57] VITALS: BP 144/73
[2018-10-27] MEDS: SIMETHICONE SUSP 40 MG/0.6 ML BOTTLE GT SCH ×2 (08:00→20:07)
[2018-10-27] MEDS: FERROUS SULFATE - FOR SA ONLY 330 MG/7.5 ML UDC GT SCH ×2 (09:26→17:16)
[2018-10-27] MEDS: DOCUSATE SODIUM LIQ 100 MG/10 ML UDC GT SCH (09:26)
[2018-10-27] MEDS: MULTIVIT W/MINERALS 1 TAB TABLET GT SCH (09:26)
[2018-10-27] MEDS: VIT A TP SCH ×2 (09:26→20:07)
[2018-10-27] MEDS: LEVETIRACETAM SOL (5 ML) 100 MG/ML UDC GT SCH ×2 (09:26→20:07)
[2018-10-27] MEDS: ACIDOPHILUS/BULGARICUS 1 EACH TAB.CHEW GT SCH ×2 (09:26→17:16)
[2018-10-27] MEDS: Z GUARD REMEDY 4 OZ OINT TP SCH ×4 (09:26→20:08)
[2018-10-27] MEDS: CALCIUM CARBONATE 500 MG TAB.CHEW GT SCH ×2 (09:26→17:16)
[2018-10-27] MEDS: PROSOURCE DIETARY LIQUID 30 ML LIQUID GT SCH ×2 (09:26→17:16)
[2018-10-27] MEDS: HYDROGEN PEROXIDE 480 ML BOTTLE TP SCH ×2 (09:26→20:08)
[2018-10-27] MEDS: [UNRECOGNIZED DRUG - OTHER] TP SCH ×2 (09:26→20:07)
[2018-10-27] MEDS: TRILEPTAL GT SCH ×2 (09:26→20:07)
[2018-10-27 12:04] VITALS: BP 131/68
[2018-10-27] MEDS: GLUCERNA 1.2 1,000 ML BOTTLE GT PRN (17:17)
[2018-10-27 19:56] VITALS: BP 111/68
[2018-10-27] MEDS: ASCORBIC ACID 500 MG TABLET GT SCH (20:07)
[2018-10-28] MEDS: ALBUTEROL FS 2.5 MG/3 ML VIAL.NEB NEB SCH ×4 (01:57→19:43)
[2018-10-28] MEDS: GABAPENTIN 300 MG CAPSULE GT SCH ×3 (05:01→21:00)
[2018-10-28] MEDS: DEXILANT 30 MG GT SCH (05:01)
[2018-10-28] MEDS: METOCLOPRAMIDE HCL 10 MG/10 ML UDC GT SCH ×3 (05:01→21:00)
[2018-10-28] MEDS: BLOOD SUGAR DIAGNOSTIC 1 EACH STRIP IN SCH ×2 (05:49→17:25)
[2018-10-28] MEDS: INSULIN REGULAR, HUMAN 100 UNIT/ML 3 ML VIAL SQ PRN ×2 (05:49→17:24)
--- NOTE | 2018-10-28 07:51 | NUR ---
Female trach pt received unlabored on a mechanical vent. Pt trach is secure. Vent is plugged into a red outlet, alarms are set and audible, and BMV is at bedside. Addendum: 10/28/18 at 0752 by MARKIE PINO RT Amended: Links added.
[2018-10-28 07:52] VITALS: BP 116/58
[2018-10-28] MEDS: SIMETHICONE SUSP 40 MG/0.6 ML BOTTLE GT SCH ×2 (08:00→20:00)
[2018-10-28] MEDS: TRILEPTAL GT SCH ×2 (09:00→21:00)
[2018-10-28] MEDS: CALCIUM CARBONATE 500 MG TAB.CHEW GT SCH ×2 (09:00→17:25)
[2018-10-28] MEDS: VIT A TP SCH ×2 (09:00→21:00)
[2018-10-28] MEDS: HYDROGEN PEROXIDE 480 ML BOTTLE TP SCH ×2 (09:00→21:00)
[2018-10-28] MEDS: MULTIVIT W/MINERALS 1 TAB TABLET GT SCH (09:00)
[2018-10-28] MEDS: LEVETIRACETAM SOL (5 ML) 100 MG/ML UDC GT SCH ×2 (09:00→21:00)
[2018-10-28] MEDS: Z GUARD REMEDY 4 OZ OINT TP SCH ×4 (09:00→21:00)
[2018-10-28] MEDS: [UNRECOGNIZED DRUG - OTHER] TP SCH ×2 (09:00→21:00)
[2018-10-28] MEDS: DOCUSATE SODIUM LIQ 100 MG/10 ML UDC GT SCH (09:00)
[2018-10-28] MEDS: PROSOURCE DIETARY LIQUID 30 ML LIQUID GT SCH ×2 (09:00→17:25)
[2018-10-28] MEDS: FERROUS SULFATE - FOR SA ONLY 330 MG/7.5 ML UDC GT SCH ×2 (09:00→17:24)
[2018-10-28] MEDS: ACIDOPHILUS/BULGARICUS 1 EACH TAB.CHEW GT SCH ×2 (09:00→17:25)
[2018-10-28] MEDS: GLUCERNA 1.2 1,000 ML BOTTLE GT PRN (15:57)
[2018-10-28] MEDS: MAGNESIUM HYDROXIDE 30 ML UDC GT PRN ×2 (16:00→19:05)
[2018-10-28 20:28] VITALS: BP 123/71
--- NOTE | 2018-10-28 20:52 | NUR ---
RT NOTE PT REC'D TRACHED ON [facility] VENT ON AC MODE. NO RESP DISTRESS OR SOB NOTED. TRACH PATENT AND SECURED. SX'D FOR MOD AMT OF THICK PALE YELLOW SECRETIONS. ALARMS ARE SET AND AUDIBLE. VENT PLUGGED INTO RED OUTLET. AMBU BAG BEDSIDE. WILL CONTINUE TO MONITOR. Addendum: 10/28/18 at 2053 by LADAN WICK RT Amended: Links added.
[2018-10-28] MEDS: ASCORBIC ACID 500 MG TABLET GT SCH (21:00)
[2018-10-29] MEDS: ALBUTEROL FS 2.5 MG/3 ML VIAL.NEB NEB SCH ×4 (01:43→19:40)
[2018-10-29] MEDS: GABAPENTIN 300 MG CAPSULE GT SCH ×3 (05:00→20:17)
[2018-10-29] MEDS: METOCLOPRAMIDE HCL 10 MG/10 ML UDC GT SCH ×3 (05:00→20:18)
[2018-10-29] MEDS: INSULIN REGULAR, HUMAN 100 UNIT/ML 3 ML VIAL SQ PRN (06:22)
[2018-10-29] MEDS: DEXILANT 30 MG GT SCH (06:22)
[2018-10-29] MEDS: BLOOD SUGAR DIAGNOSTIC 1 EACH STRIP IN SCH ×2 (06:22→17:26)
[2018-10-29] MEDS: BISACODYL SUPP (10 MG) 10 MG/SUPP.RECT SUPP.RECT RC PRN (06:23)
[2018-10-29 07:24] VITALS: BP 120/74
[2018-10-29] MEDS: SIMETHICONE SUSP 40 MG/0.6 ML BOTTLE GT SCH ×2 (08:00→20:17)
--- NOTE | 2018-10-29 08:19 | NUR ---
RT NOTE PATIENT RECEIVED TRACHED ON MECHANICAL VENTILATION. AMBU BAG/BACK UP TRACH @ BEDSIDE. VENT PLUGGED TO RED OUTLET. ALARMS ON AND AUDIBLE. TX GIVEN, NO ADVERSE REACTIONS NOTED. SX DONE, MODERATE THICK WHITE SECRETIONS NOTED. PATIENT STABLE AT THIS TIME. WILL CONTINUE TO MONITOR. Addendum: 10/29/18 at 0819 by MARCO FRANCOIS RT Amended: Links added.
[2018-10-29] MEDS: HYDROGEN PEROXIDE 480 ML BOTTLE TP SCH ×2 (09:00→20:18)
[2018-10-29] MEDS: MULTIVIT W/MINERALS 1 TAB TABLET GT SCH (09:00)
[2018-10-29] MEDS: PROSOURCE DIETARY LIQUID 30 ML LIQUID GT SCH ×2 (09:00→17:26)
[2018-10-29] MEDS: ACIDOPHILUS/BULGARICUS 1 EACH TAB.CHEW GT SCH ×2 (09:00→17:26)
[2018-10-29] MEDS: VIT A TP SCH ×2 (09:00→20:18)
[2018-10-29] MEDS: [UNRECOGNIZED DRUG - OTHER] TP SCH ×2 (09:00→20:18)
[2018-10-29] MEDS: LEVETIRACETAM SOL (5 ML) 100 MG/ML UDC GT SCH ×2 (09:00→20:17)
[2018-10-29] MEDS: CALCIUM CARBONATE 500 MG TAB.CHEW GT SCH ×2 (09:00→17:26)
[2018-10-29] MEDS: FERROUS SULFATE - FOR SA ONLY 330 MG/7.5 ML UDC GT SCH ×2 (09:00→17:26)
[2018-10-29] MEDS: DOCUSATE SODIUM LIQ 100 MG/10 ML UDC GT SCH (09:00)
[2018-10-29] MEDS: Z GUARD REMEDY 4 OZ OINT TP SCH ×3 (09:00→20:18)
[2018-10-29] MEDS: TRILEPTAL GT SCH ×2 (09:00→20:18)
--- NOTE | 2018-10-29 12:37 | NUR ---
Seen and examined by Dr. Luis, NNO given. He said that result of CT scan remain unchanged. Urine culture sent for VRE clearance.
[2018-10-29] MEDS: GLUCERNA 1.2 1,000 ML BOTTLE GT PRN (14:39)
[2018-10-29] MEDS: ASCORBIC ACID 500 MG TABLET GT SCH (20:18)
[2018-10-29 21:25] VITALS: BP 131/73
--- NOTE | 2018-10-30 00:43 | NUR ---
RT NOTE PT REC'D TRACHED ON [facility] VENT ON AC MODE. NO RESP DISTRESS OR SOB NOTED. TRACH PATENT AND SECURED. SX'D FOR MOD AMT OF PALE YELLOW SECRETIONS. ALARMS ARE SET AND AUDIBLE. VENT PLUGGED INTO RED OUTLET. AMBU BAG BEDSIDE. WILL CONTINUE TO MONITOR Addendum: 10/30/18 at 0045 by LADAN WICK RT Amended: Links added.
[2018-10-30] MEDS: ALBUTEROL FS 2.5 MG/3 ML VIAL.NEB NEB SCH ×4 (01:30→19:22)
[2018-10-30] MEDS: METOCLOPRAMIDE HCL 10 MG/10 ML UDC GT SCH ×3 (05:41→20:35)
[2018-10-30] MEDS: DEXILANT 30 MG GT SCH (05:41)
[2018-10-30] MEDS: GABAPENTIN 300 MG CAPSULE GT SCH ×3 (05:41→20:34)
[2018-10-30] MEDS: BLOOD SUGAR DIAGNOSTIC 1 EACH STRIP IN SCH ×2 (06:24→18:00)
[2018-10-30] MEDS: INSULIN REGULAR, HUMAN 100 UNIT/ML 3 ML VIAL SQ PRN ×2 (06:24→18:13)
[2018-10-30 07:28] VITALS: BP 129/76
[2018-10-30] MEDS: [UNRECOGNIZED DRUG - OTHER] TP SCH ×2 (08:15→20:35)
[2018-10-30] MEDS: PROSOURCE DIETARY LIQUID 30 ML LIQUID GT SCH ×2 (08:15→17:00)
[2018-10-30] MEDS: MULTIVIT W/MINERALS 1 TAB TABLET GT SCH (08:15)
[2018-10-30] MEDS: TRILEPTAL GT SCH ×2 (08:15→20:34)
[2018-10-30] MEDS: FERROUS SULFATE - FOR SA ONLY 330 MG/7.5 ML UDC GT SCH ×2 (08:15→17:00)
[2018-10-30] MEDS: CALCIUM CARBONATE 500 MG TAB.CHEW GT SCH ×2 (08:15→17:00)
[2018-10-30] MEDS: SIMETHICONE SUSP 40 MG/0.6 ML BOTTLE GT SCH ×2 (08:15→20:34)
[2018-10-30] MEDS: HYDROGEN PEROXIDE 480 ML BOTTLE TP SCH ×2 (08:15→20:35)
[2018-10-30] MEDS: Z GUARD REMEDY 4 OZ OINT TP SCH ×2 (08:15→20:35)
[2018-10-30] MEDS: ACIDOPHILUS/BULGARICUS 1 EACH TAB.CHEW GT SCH ×2 (08:15→17:00)
[2018-10-30] MEDS: VIT A TP SCH ×2 (08:15→20:35)
[2018-10-30] MEDS: DOCUSATE SODIUM LIQ 100 MG/10 ML UDC GT SCH (08:15)
[2018-10-30] MEDS: LEVETIRACETAM SOL (5 ML) 100 MG/ML UDC GT SCH ×2 (08:15→20:34)
[2018-10-30] MEDS: GLUCERNA 1.2 1,000 ML BOTTLE GT PRN (13:52)
[2018-10-30] MEDS: ASCORBIC ACID 500 MG TABLET GT SCH (20:35)
[2018-10-30 20:39] VITALS: BP 133/75
[2018-10-31] MEDS: ALBUTEROL FS 2.5 MG/3 ML VIAL.NEB NEB SCH ×4 (01:18→19:14)
[2018-10-31] MEDS: DEXILANT 30 MG GT SCH (05:39)
[2018-10-31] MEDS: BLOOD SUGAR DIAGNOSTIC 1 EACH STRIP IN SCH ×2 (05:39→17:22)
[2018-10-31] MEDS: INSULIN REGULAR, HUMAN 100 UNIT/ML 3 ML VIAL SQ PRN ×2 (05:39→17:23)
[2018-10-31] MEDS: GABAPENTIN 300 MG CAPSULE GT SCH ×3 (05:39→20:41)
[2018-10-31] MEDS: METOCLOPRAMIDE HCL 10 MG/10 ML UDC GT SCH ×3 (05:39→20:41)
[2018-10-31] MEDS: GLUCERNA 1.2 1,000 ML BOTTLE GT PRN (05:40)
[2018-10-31 07:24] VITALS: BP 128/67
[2018-10-31] MEDS: SIMETHICONE SUSP 40 MG/0.6 ML BOTTLE GT SCH ×2 (08:00→20:40)
[2018-10-31] MEDS: LEVETIRACETAM SOL (5 ML) 100 MG/ML UDC GT SCH ×2 (09:00→20:41)
[2018-10-31] MEDS: CALCIUM CARBONATE 500 MG TAB.CHEW GT SCH ×2 (09:00→16:58)
[2018-10-31] MEDS: ACIDOPHILUS/BULGARICUS 1 EACH TAB.CHEW GT SCH ×2 (09:00→16:58)
[2018-10-31] MEDS: HYDROGEN PEROXIDE 480 ML BOTTLE TP SCH ×2 (09:00→20:41)
[2018-10-31] MEDS: VIT A TP SCH ×2 (09:00→20:41)
[2018-10-31] MEDS: Z GUARD REMEDY 4 OZ OINT TP SCH ×2 (09:00→20:41)
[2018-10-31] MEDS: PROSOURCE DIETARY LIQUID 30 ML LIQUID GT SCH ×2 (09:00→16:58)
[2018-10-31] MEDS: DOCUSATE SODIUM LIQ 100 MG/10 ML UDC GT SCH (09:00)
[2018-10-31] MEDS: MULTIVIT W/MINERALS 1 TAB TABLET GT SCH (09:00)
[2018-10-31] MEDS: TRILEPTAL GT SCH ×2 (09:00→20:41)
[2018-10-31] MEDS: [UNRECOGNIZED DRUG - OTHER] TP SCH ×2 (09:00→20:41)
[2018-10-31] MEDS: FERROUS SULFATE - FOR SA ONLY 330 MG/7.5 ML UDC GT SCH ×2 (09:00→16:58)
[2018-10-31 20:14] VITALS: BP 135/65
[2018-10-31] MEDS: ASCORBIC ACID 500 MG TABLET GT SCH (20:41)
[2018-11-01] MEDS: ALBUTEROL FS 2.5 MG/3 ML VIAL.NEB NEB SCH ×4 (01:38→18:55)
[2018-11-01] MEDS: GLUCERNA 1.2 1,000 ML BOTTLE GT PRN (03:49)
[2018-11-01] MEDS: DEXILANT 30 MG GT SCH (05:25)
[2018-11-01] MEDS: METOCLOPRAMIDE HCL 10 MG/10 ML UDC GT SCH ×3 (05:25→20:06)
[2018-11-01] MEDS: BLOOD SUGAR DIAGNOSTIC 1 EACH STRIP IN SCH ×2 (05:25→18:00)
[2018-11-01] MEDS: GABAPENTIN 300 MG CAPSULE GT SCH ×3 (05:25→20:05)
[2018-11-01 07:43] VITALS: BP 103/71
[2018-11-01] MEDS: SIMETHICONE SUSP 40 MG/0.6 ML BOTTLE GT SCH ×2 (08:00→20:05)
[2018-11-01] MEDS: VIT A TP SCH ×2 (09:00→20:07)
[2018-11-01] MEDS: ACIDOPHILUS/BULGARICUS 1 EACH TAB.CHEW GT SCH ×2 (09:00→17:00)
[2018-11-01] MEDS: DOCUSATE SODIUM LIQ 100 MG/10 ML UDC GT SCH (09:00)
[2018-11-01] MEDS: FERROUS SULFATE - FOR SA ONLY 330 MG/7.5 ML UDC GT SCH ×2 (09:00→17:00)
[2018-11-01] MEDS: CALCIUM CARBONATE 500 MG TAB.CHEW GT SCH ×2 (09:00→17:00)
[2018-11-01] MEDS: [UNRECOGNIZED DRUG - OTHER] TP SCH ×2 (09:00→20:07)
[2018-11-01] MEDS: Z GUARD REMEDY 4 OZ OINT TP SCH ×2 (09:00→20:07)
[2018-11-01] MEDS: HYDROGEN PEROXIDE 480 ML BOTTLE TP SCH ×2 (09:00→20:07)
[2018-11-01] MEDS: TRILEPTAL GT SCH ×2 (09:00→20:06)
[2018-11-01] MEDS: PROSOURCE DIETARY LIQUID 30 ML LIQUID GT SCH ×2 (09:00→17:00)
[2018-11-01] MEDS: MULTIVIT W/MINERALS 1 TAB TABLET GT SCH (09:00)
[2018-11-01] MEDS: LEVETIRACETAM SOL (5 ML) 100 MG/ML UDC GT SCH ×2 (09:00→20:05)
--- NOTE | 2018-11-01 16:58 | NUR ---
Relayed urine culture result to NAN Loredo. 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 Pt afebrile, T 98.2 F. Urine clear and yellowish in color, no foul odor. Addendum: 11/01/18 at 1722 by SARITA GOMEZ RN NAN Loredo ordered to change pt's Bourgeois catheter.
--- NOTE | 2018-11-01 19:02 | NUR ---
RT NOTE PT REC'D TRACHED ON [facility] VENT ON AC MODE. NO RESP DISTRESS OR SOB NOTED. TRACH PATENT AND SECURED. SX'D FOR MOD AMT OF PALE YELLOW SECRETIONS. ALARMS ARE SET AND AUDIBLE. VENT PLUGGED INTO RED OUTLET. AMBU BAG BEDSIDE. WILL CONTINUE TO MONITOR Addendum: 11/01/18 at 1903 by MERLIN FARAH RT Amended: Links added.
[2018-11-01] MEDS: INSULIN REGULAR, HUMAN 100 UNIT/ML 3 ML VIAL SQ PRN (19:07)
[2018-11-01] MEDS: ASCORBIC ACID 500 MG TABLET GT SCH (20:06)
[2018-11-01 20:27] VITALS: BP 148/72
[2018-11-02] MEDS: ALBUTEROL FS 2.5 MG/3 ML VIAL.NEB NEB SCH ×4 (00:45→19:24)
[2018-11-02] MEDS: GLUCERNA 1.2 1,000 ML BOTTLE GT PRN (04:55)
[2018-11-02] MEDS: GABAPENTIN 300 MG CAPSULE GT SCH ×3 (05:12→20:03)
[2018-11-02] MEDS: BLOOD SUGAR DIAGNOSTIC 1 EACH STRIP IN SCH ×2 (05:13→18:14)
[2018-11-02] MEDS: INSULIN REGULAR, HUMAN 100 UNIT/ML 3 ML VIAL SQ PRN ×2 (05:13→18:15)
[2018-11-02] MEDS: METOCLOPRAMIDE HCL 10 MG/10 ML UDC GT SCH ×3 (05:13→20:04)
[2018-11-02] MEDS: DEXILANT 30 MG GT SCH (05:13)
--- NOTE | 2018-11-02 07:46 | NUR ---
Received female fariha pt on a mechanical vent. Pt fariha is secure. Vent is plugged into a red outlet, alarms are set and audible, and BMV is at bedside. Addendum: 11/02/18 at 0747 by MARKIE PINO RT Amended: Links added.
[2018-11-02 07:49] VITALS: BP 104/56
[2018-11-02] MEDS: SIMETHICONE SUSP 40 MG/0.6 ML BOTTLE GT SCH ×2 (08:00→20:03)
[2018-11-02] MEDS: ACIDOPHILUS/BULGARICUS 1 EACH TAB.CHEW GT SCH ×2 (09:00→16:31)
[2018-11-02] MEDS: [UNRECOGNIZED DRUG - OTHER] TP SCH ×2 (09:00→20:05)
[2018-11-02] MEDS: FERROUS SULFATE - FOR SA ONLY 330 MG/7.5 ML UDC GT SCH ×2 (09:00→16:31)
[2018-11-02] MEDS: CALCIUM CARBONATE 500 MG TAB.CHEW GT SCH ×2 (09:00→16:31)
[2018-11-02] MEDS: Z GUARD REMEDY 4 OZ OINT TP SCH ×2 (09:00→20:05)
[2018-11-02] MEDS: MULTIVIT W/MINERALS 1 TAB TABLET GT SCH (09:00)
[2018-11-02] MEDS: TRILEPTAL GT SCH ×2 (09:00→20:04)
[2018-11-02] MEDS: HYDROGEN PEROXIDE 480 ML BOTTLE TP SCH ×2 (09:00→20:05)
[2018-11-02] MEDS: PROSOURCE DIETARY LIQUID 30 ML LIQUID GT SCH ×2 (09:00→16:31)
[2018-11-02] MEDS: VIT A TP SCH ×2 (09:00→20:05)
[2018-11-02] MEDS: LEVETIRACETAM SOL (5 ML) 100 MG/ML UDC GT SCH ×2 (09:00→20:03)
[2018-11-02] MEDS: DOCUSATE SODIUM LIQ 100 MG/10 ML UDC GT SCH (09:00)
[2018-11-02 19:54] VITALS: BP 112/62
[2018-11-02] MEDS: ASCORBIC ACID 500 MG TABLET GT SCH (20:05)
[2018-11-03] MEDS: ALBUTEROL FS 2.5 MG/3 ML VIAL.NEB NEB SCH ×4 (01:27→18:59)
[2018-11-03] MEDS: DEXILANT 30 MG GT SCH (05:07)
[2018-11-03] MEDS: METOCLOPRAMIDE HCL 10 MG/10 ML UDC GT SCH ×3 (05:07→20:32)
[2018-11-03] MEDS: GABAPENTIN 300 MG CAPSULE GT SCH ×3 (05:07→20:32)
[2018-11-03] MEDS: BLOOD SUGAR DIAGNOSTIC 1 EACH STRIP IN SCH ×2 (05:08→18:24)
[2018-11-03] MEDS: INSULIN REGULAR, HUMAN 100 UNIT/ML 3 ML VIAL SQ PRN ×2 (05:08→18:24)
[2018-11-03] MEDS: GLUCERNA 1.2 1,000 ML BOTTLE GT PRN ×3 (05:08→23:46)
[2018-11-03 07:21] VITALS: BP 126/71
[2018-11-03] MEDS: SIMETHICONE SUSP 40 MG/0.6 ML BOTTLE GT SCH ×2 (08:00→20:32)
[2018-11-03] MEDS: HYDROGEN PEROXIDE 480 ML BOTTLE TP SCH ×2 (09:00→20:32)
[2018-11-03] MEDS: [UNRECOGNIZED DRUG - OTHER] TP SCH ×2 (09:00→20:32)
[2018-11-03] MEDS: DOCUSATE SODIUM LIQ 100 MG/10 ML UDC GT SCH (09:00)
[2018-11-03] MEDS: TRILEPTAL GT SCH ×2 (09:00→20:32)
[2018-11-03] MEDS: MULTIVIT W/MINERALS 1 TAB TABLET GT SCH (09:00)
[2018-11-03] MEDS: ACIDOPHILUS/BULGARICUS 1 EACH TAB.CHEW GT SCH ×2 (09:00→17:57)
[2018-11-03] MEDS: PROSOURCE DIETARY LIQUID 30 ML LIQUID GT SCH ×2 (09:00→17:57)
[2018-11-03] MEDS: Z GUARD REMEDY 4 OZ OINT TP SCH ×2 (09:00→20:32)
[2018-11-03] MEDS: FERROUS SULFATE - FOR SA ONLY 330 MG/7.5 ML UDC GT SCH ×2 (09:00→17:57)
[2018-11-03] MEDS: VIT A TP SCH ×2 (09:00→20:32)
[2018-11-03] MEDS: LEVETIRACETAM SOL (5 ML) 100 MG/ML UDC GT SCH ×2 (09:00→20:32)
[2018-11-03] MEDS: CALCIUM CARBONATE 500 MG TAB.CHEW GT SCH ×2 (09:00→17:57)
--- NOTE | 2018-11-03 10:02 | NUR ---
Patient seen by Dr. Felix, no new orders at this time. Vital signs stable, patient lying down comfortably. Bed at the lowest setting. BMV at bedside.
[2018-11-03 19:55] VITALS: BP 128/71
[2018-11-03 19:59] VITALS: BP 128/71
[2018-11-03] MEDS: ASCORBIC ACID 500 MG TABLET GT SCH (20:32)
[2018-11-04] MEDS: ALBUTEROL FS 2.5 MG/3 ML VIAL.NEB NEB SCH ×4 (01:19→19:38)
[2018-11-04] MEDS: METOCLOPRAMIDE HCL 10 MG/10 ML UDC GT SCH ×3 (05:57→20:39)
[2018-11-04] MEDS: INSULIN REGULAR, HUMAN 100 UNIT/ML 3 ML VIAL SQ PRN ×2 (05:57→17:30)
[2018-11-04] MEDS: BLOOD SUGAR DIAGNOSTIC 1 EACH STRIP IN SCH ×2 (05:57→17:30)
[2018-11-04] MEDS: DEXILANT 30 MG GT SCH (05:57)
[2018-11-04] MEDS: GABAPENTIN 300 MG CAPSULE GT SCH ×3 (05:57→20:39)
[2018-11-04 07:47] VITALS: BP 105/66
--- NOTE | 2018-11-04 07:57 | NUR ---
Female trach pt received unlabored on a mechanical vent. Pt trach is secure. Vent is plugged into a red outlet, alarms are set and audible, and BMV is at bedside. Addendum: 11/04/18 at 0758 by MARKIE PINO RT Amended: Links added.
[2018-11-04] MEDS: ACIDOPHILUS/BULGARICUS 1 EACH TAB.CHEW GT SCH ×2 (08:52→17:30)
[2018-11-04] MEDS: MULTIVIT W/MINERALS 1 TAB TABLET GT SCH (08:52)
[2018-11-04] MEDS: SIMETHICONE SUSP 40 MG/0.6 ML BOTTLE GT SCH ×2 (08:52→20:39)
[2018-11-04] MEDS: CALCIUM CARBONATE 500 MG TAB.CHEW GT SCH ×2 (08:52→17:30)
[2018-11-04] MEDS: FERROUS SULFATE - FOR SA ONLY 330 MG/7.5 ML UDC GT SCH ×2 (08:52→17:30)
[2018-11-04] MEDS: DOCUSATE SODIUM LIQ 100 MG/10 ML UDC GT SCH (08:52)
[2018-11-04] MEDS: PROSOURCE DIETARY LIQUID 30 ML LIQUID GT SCH ×2 (08:52→17:30)
[2018-11-04] MEDS: TRILEPTAL GT SCH ×2 (08:52→20:39)
[2018-11-04] MEDS: LEVETIRACETAM SOL (5 ML) 100 MG/ML UDC GT SCH ×2 (08:52→20:39)
[2018-11-04] MEDS: VIT A TP SCH ×2 (09:00→20:39)
[2018-11-04] MEDS: [UNRECOGNIZED DRUG - OTHER] TP SCH ×2 (09:00→20:39)
[2018-11-04] MEDS: HYDROGEN PEROXIDE 480 ML BOTTLE TP SCH ×2 (09:00→20:39)
[2018-11-04] MEDS: Z GUARD REMEDY 4 OZ OINT TP SCH ×2 (09:00→20:39)
[2018-11-04] MEDS: GLUCERNA 1.2 1,000 ML BOTTLE GT PRN (17:33)
[2018-11-04 19:59] VITALS: BP 144/75
--- NOTE | 2018-11-04 20:32 | NUR ---
PT RCVD TRACH'D ON MECHANICAL VENT WITH CHARTED SETTINGS. HHN TX APRIL WELL. SX DONE. PT TRACH IS PATENT AND SECURE. VENT PLUGGED INTO RED OUTLET. ALARMS ARE ON AND AUDIBLE. AMBU BAG AT BEDSIDE. WILL CONTINUE TO MONITOR. Addendum: 11/04/18 at 2033 by MICH AVILA RT Amended: Links added.
[2018-11-04] MEDS: ASCORBIC ACID 500 MG TABLET GT SCH (20:39)
[2018-11-05] MEDS: ALBUTEROL FS 2.5 MG/3 ML VIAL.NEB NEB SCH ×4 (00:52→19:43)
[2018-11-05] MEDS: METOCLOPRAMIDE HCL 10 MG/10 ML UDC GT SCH ×5 (05:32→21:03)
[2018-11-05] MEDS: GABAPENTIN 300 MG CAPSULE GT SCH ×5 (05:32→21:03)
[2018-11-05] MEDS: DEXILANT 30 MG GT SCH (05:32)
[2018-11-05] MEDS: INSULIN REGULAR, HUMAN 100 UNIT/ML 3 ML VIAL SQ PRN ×2 (06:02→18:18)
[2018-11-05] MEDS: BLOOD SUGAR DIAGNOSTIC 1 EACH STRIP IN SCH ×2 (06:02→18:18)
[2018-11-05 07:43] VITALS: BP 125/70
--- NOTE | 2018-11-05 07:45 | NUR ---
Pt received on a mechanical vent. Tolerating current settings well. Pt trach is secure. Vent is plugged into a red outlet, alarms are set and audible, and BMV is at bedside. Addendum: 11/05/18 at 0745 by MARKIE PINO RT Amended: Links added.
[2018-11-05] MEDS: SIMETHICONE SUSP 40 MG/0.6 ML BOTTLE GT SCH ×4 (08:00→21:00)
--- NOTE | 2018-11-05 08:49 | NUR ---
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 SACRAL WOUND MEASURES 1CM X 0.3CM X 0.1CM AND IS PINK IN COLOR, NO DRAINAGE, NO ODOR. RECOMMENDATIONS MADE FOR WOUND/SKIN CARE AND PROTECTION. SKIN TO BE KEPT CLEAN AND DRY. DISCUSSED WITH NURSING STAFF: LOTRIMIN CREAM FOR RE-OPENED ULCER AND BUTTOCKS, COVER WITH WOUND WITH MEPILEX. PT ON FIRST STEP CIRRUS LOW AIRLOSS MATTRESS. DAVIDSON CATH NOTED. PT INCONTINENT OF LOOSE STOOLS AT TIMES. WILL SEE PRN. IN AGREEMENT WITH PLAN OF CARE.
[2018-11-05] MEDS: HYDROGEN PEROXIDE 480 ML BOTTLE TP SCH ×4 (09:00→21:04)
[2018-11-05] MEDS: Z GUARD REMEDY 4 OZ OINT TP SCH ×4 (09:00→21:04)
[2018-11-05] MEDS: PROSOURCE DIETARY LIQUID 30 ML LIQUID GT SCH ×2 (09:48→17:09)
[2018-11-05] MEDS: ACIDOPHILUS/BULGARICUS 1 EACH TAB.CHEW GT SCH ×2 (09:48→17:09)
[2018-11-05] MEDS: CALCIUM CARBONATE 500 MG TAB.CHEW GT SCH ×2 (09:48→17:09)
[2018-11-05] MEDS: TRILEPTAL GT SCH ×4 (09:48→21:03)
[2018-11-05] MEDS: MULTIVIT W/MINERALS 1 TAB TABLET GT SCH (09:48)
[2018-11-05] MEDS: FERROUS SULFATE - FOR SA ONLY 330 MG/7.5 ML UDC GT SCH ×2 (09:48→17:09)
[2018-11-05] MEDS: DOCUSATE SODIUM LIQ 100 MG/10 ML UDC GT SCH (09:48)
[2018-11-05] MEDS: VIT A TP SCH ×4 (09:48→21:04)
[2018-11-05] MEDS: LEVETIRACETAM SOL (5 ML) 100 MG/ML UDC GT SCH ×4 (09:48→21:03)
[2018-11-05] MEDS: [UNRECOGNIZED DRUG - OTHER] TP SCH ×4 (09:48→21:04)
[2018-11-05] MEDS: GLUCERNA 1.2 1,000 ML BOTTLE GT PRN (15:52)
[2018-11-05] MEDS: ASCORBIC ACID 500 MG TABLET GT SCH ×3 (20:20→21:03)
[2018-11-05] MEDS: CLOTRIMAZOLE 1% 15 GM TUBE TP SCH ×6 (20:21→21:04)
[2018-11-05] MEDS: TRIAMCINOLONE ACETONIDE 0.1% CR 15 GM TUBE TP SCH ×3 (20:25→21:03)
--- NOTE | 2018-11-05 20:42 | NUR ---
PT RCVD TRACH'D ON MECHANICAL VENT WITH CHARTED SETTINGS. HHN TX APRIL WELL. SX DONE. PT TRACH IS PATENT AND SECURE. VENT PLUGGED INTO RED OUTLET. ALARMS ARE ON AND AUDIBLE. AMBU BAG AT BEDSIDE. WILL CONTINUE TO MONITOR. Addendum: 11/05/18 at 2041 by MICH AVILA RT Amended: Links added.
[2018-11-05 20:49] VITALS: BP 109/61
[2018-11-06] MEDS: ALBUTEROL FS 2.5 MG/3 ML VIAL.NEB NEB SCH ×4 (00:42→18:42)
[2018-11-06] MEDS: METOCLOPRAMIDE HCL 10 MG/10 ML UDC GT SCH ×3 (05:24→20:52)
[2018-11-06] MEDS: GABAPENTIN 300 MG CAPSULE GT SCH ×3 (05:24→20:52)
[2018-11-06] MEDS: DEXILANT 30 MG GT SCH (05:24)
[2018-11-06] MEDS: INSULIN REGULAR, HUMAN 100 UNIT/ML 3 ML VIAL SQ PRN ×2 (05:53→17:46)
[2018-11-06] MEDS: BLOOD SUGAR DIAGNOSTIC 1 EACH STRIP IN SCH ×2 (05:53→17:46)
[2018-11-06 07:11] LABS: BASOPHILS % (AUTO) 0.3 % (0.0-2.0); EOSINOPHILS % (AUTO) 3.7 % (0.0-6.0); HEMATOCRIT 28 % (33-45); HEMOGLOBIN 9.3 g/dL (11.5-14.8); LYMPHOCYTES # (AUTO) 2.8 /CMM (0.8-4.8); LYMPHOCYTES % (AUTO) 22.9 % (20.0-44.0); MEAN CORPUSCULAR HGB CONC 33 g/dl (31.0-36.0); MEAN CORPUSCULAR VOLUME 98 fL (82-100); MONOCYTES # (AUTO) 1.1 /CMM (0.1-1.30); MONOCYTES % (AUTO) 9.3 % (2.0-12.0); NEUTROPHILS # (AUTO) 7.9 /CMM (1.8-8.9); NEUTROPHILS % (AUTO) 63.8 % (43.0-81.0); PLATELET COUNT (AUTO) 312 /CMM (150-450); RED BLOOD CELL COUNT(AUTO) 2.84 MIL/uL (4.0-5.2); WHITE BLOOD COUNT (AUTO) 12.3 K/uL (4.3-11.0)
--- NOTE | 2018-11-06 07:17 | NUR ---
RT PT RECEIVED TRACH'D ON [facility] VENT WITH SETTING PER MD ORDER. EYELET OPERATOR DONE. VENT PLUGGED INTO RED OUTLET. SPARE TRACH AND AMBU BAG AT HEAD OF BED. ALARMS ON AND FUNCTIONING PROPERLY. HHN TX GIVEN ORDERED. NO ADVERSE REACTIONS NOTED. SUCTIONED SMALL AMOUNTS OF THICK, PALE YELLOW SECRETIONS NOTED. WILL CONTINUE TO MONITOR THE PATIENT FOR ANY CHANGE OF CONDITION. Addendum: 11/06/18 at 1450 by YAMIL MARTINEZ RT Amended: Links added.
[2018-11-06] MEDS: SIMETHICONE SUSP 40 MG/0.6 ML BOTTLE GT SCH ×2 (08:00→20:52)
[2018-11-06] MEDS: Z GUARD REMEDY 4 OZ OINT TP SCH ×2 (09:00→20:53)
[2018-11-06] MEDS: HYDROGEN PEROXIDE 480 ML BOTTLE TP SCH ×2 (09:00→20:53)
[2018-11-06] MEDS: TRIAMCINOLONE ACETONIDE 0.1% CR 15 GM TUBE TP SCH ×2 (09:00→21:26)
[2018-11-06] MEDS: [UNRECOGNIZED DRUG - OTHER] TP SCH ×2 (09:00→20:52)
[2018-11-06] MEDS: CLOTRIMAZOLE 1% 15 GM TUBE TP SCH ×4 (09:00→21:26)
[2018-11-06] MEDS: VIT A TP SCH ×2 (09:00→20:52)
[2018-11-06] MEDS: FERROUS SULFATE - FOR SA ONLY 330 MG/7.5 ML UDC GT SCH ×2 (09:18→17:45)
[2018-11-06] MEDS: LEVETIRACETAM SOL (5 ML) 100 MG/ML UDC GT SCH ×2 (09:18→20:52)
[2018-11-06] MEDS: ACIDOPHILUS/BULGARICUS 1 EACH TAB.CHEW GT SCH ×2 (09:18→17:46)
[2018-11-06] MEDS: PROSOURCE DIETARY LIQUID 30 ML LIQUID GT SCH ×2 (09:18→17:46)
[2018-11-06] MEDS: DOCUSATE SODIUM LIQ 100 MG/10 ML UDC GT SCH (09:18)
[2018-11-06] MEDS: TRILEPTAL GT SCH ×2 (09:18→20:52)
[2018-11-06] MEDS: MULTIVIT W/MINERALS 1 TAB TABLET GT SCH (09:19)
[2018-11-06] MEDS: CALCIUM CARBONATE 500 MG TAB.CHEW GT SCH ×2 (09:19→17:46)
[2018-11-06] MEDS: GLUCERNA 1.2 1,000 ML BOTTLE GT PRN (11:25)
--- NOTE | 2018-11-06 12:05 | NUR ---
RT TRACH CHANGED PER RT PROTOCOL. TOLERATED PROCEDURE WELL. NO RESPIRATORY COMPLICATIONS NOTED AT THIS TIME. CHARGE NURSE NOTIFIED AND AWARE. WILL CONTINUE TO MONITOR THE PATIENT CLOSELY FOR ANY CHANGE OF CONDITION. Addendum: 11/06/18 at 1450 by YAMIL MARTINEZ RT Amended: Links added.
[2018-11-06 12:26] VITALS: BP 142/72
[2018-11-06 19:56] VITALS: BP 112/60
[2018-11-06] MEDS: MAGNESIUM HYDROXIDE 30 ML UDC GT PRN (20:00)
[2018-11-06] MEDS: ASCORBIC ACID 500 MG TABLET GT SCH (20:52)
[2018-11-07] MEDS: ALBUTEROL FS 2.5 MG/3 ML VIAL.NEB NEB SCH ×4 (00:34→19:48)
[2018-11-07] MEDS: METOCLOPRAMIDE HCL 10 MG/10 ML UDC GT SCH ×3 (05:00→20:11)
[2018-11-07] MEDS: GABAPENTIN 300 MG CAPSULE GT SCH ×3 (05:00→20:10)
[2018-11-07] MEDS: GLUCERNA 1.2 1,000 ML BOTTLE GT PRN (05:11)
[2018-11-07] MEDS: DEXILANT 30 MG GT SCH (06:10)
[2018-11-07] MEDS: BLOOD SUGAR DIAGNOSTIC 1 EACH STRIP IN SCH ×2 (06:10→18:10)
[2018-11-07] MEDS: INSULIN REGULAR, HUMAN 100 UNIT/ML 3 ML VIAL SQ PRN ×2 (06:10→18:11)
[2018-11-07] MEDS: BISACODYL SUPP (10 MG) 10 MG/SUPP.RECT SUPP.RECT RC PRN (06:42)
[2018-11-07 07:36] VITALS: BP 153/78
[2018-11-07] MEDS: SIMETHICONE SUSP 40 MG/0.6 ML BOTTLE GT SCH ×2 (08:00→20:06)
[2018-11-07] MEDS: DOCUSATE SODIUM LIQ 100 MG/10 ML UDC GT SCH (09:00)
[2018-11-07] MEDS: LEVETIRACETAM SOL (5 ML) 100 MG/ML UDC GT SCH ×2 (09:00→20:10)
[2018-11-07] MEDS: PROSOURCE DIETARY LIQUID 30 ML LIQUID GT SCH ×2 (09:00→16:22)
[2018-11-07] MEDS: FERROUS SULFATE - FOR SA ONLY 330 MG/7.5 ML UDC GT SCH ×2 (09:00→16:21)
[2018-11-07] MEDS: HYDROGEN PEROXIDE 480 ML BOTTLE TP SCH ×2 (09:00→20:12)
[2018-11-07] MEDS: ACIDOPHILUS/BULGARICUS 1 EACH TAB.CHEW GT SCH ×2 (09:00→16:22)
[2018-11-07] MEDS: CLOTRIMAZOLE 1% 15 GM TUBE TP SCH ×4 (09:00→20:12)
[2018-11-07] MEDS: CALCIUM CARBONATE 500 MG TAB.CHEW GT SCH ×2 (09:00→16:22)
[2018-11-07] MEDS: TRIAMCINOLONE ACETONIDE 0.1% CR 15 GM TUBE TP SCH ×2 (09:00→20:12)
[2018-11-07] MEDS: Z GUARD REMEDY 4 OZ OINT TP SCH ×2 (09:00→20:12)
[2018-11-07] MEDS: VIT A TP SCH ×2 (09:00→20:12)
[2018-11-07] MEDS: TRILEPTAL GT SCH ×2 (09:00→20:10)
[2018-11-07] MEDS: MULTIVIT W/MINERALS 1 TAB TABLET GT SCH (09:00)
[2018-11-07] MEDS: [UNRECOGNIZED DRUG - OTHER] TP SCH ×2 (09:00→20:12)
[2018-11-07 19:48] VITALS: BP 126/75
[2018-11-07] MEDS: ASCORBIC ACID 500 MG TABLET GT SCH (20:12)
--- NOTE | 2018-11-07 20:39 | NUR ---
RT NOTE PATIENT RECEIVED TRACHED ON MECHANICAL VENTILATION. VENT PLUGGED TO RED OUTLET. AMBU BAG/BACK UP TRACH @ BEDSIDE. TX GIVEN, NO ADVERSE REACTIONS NOTED. SX DONE, SMALL THICK WHITE SECRETIONS NOTED. ALARMS ON AND AUDIBLE. WILL MONITOR T/O SHIFT. Addendum: 11/07/18 at 2039 by BRIEN NEAL RT Amended: Links added.
[2018-11-08] MEDS: GLUCERNA 1.2 1,000 ML BOTTLE GT PRN (00:05)
[2018-11-08] MEDS: ALBUTEROL FS 2.5 MG/3 ML VIAL.NEB NEB SCH ×4 (01:29→19:09)
[2018-11-08] MEDS: GABAPENTIN 300 MG CAPSULE GT SCH ×3 (05:22→20:05)
[2018-11-08] MEDS: BLOOD SUGAR DIAGNOSTIC 1 EACH STRIP IN SCH ×2 (05:22→18:30)
[2018-11-08] MEDS: METOCLOPRAMIDE HCL 10 MG/10 ML UDC GT SCH ×3 (05:22→20:05)
[2018-11-08] MEDS: DEXILANT 30 MG GT SCH (05:22)
[2018-11-08] MEDS: INSULIN REGULAR, HUMAN 100 UNIT/ML 3 ML VIAL SQ PRN ×3 (05:23→18:31)
[2018-11-08] MEDS: SIMETHICONE SUSP 40 MG/0.6 ML BOTTLE GT SCH ×2 (08:00→20:05)
[2018-11-08 08:01] VITALS: BP 125/72
[2018-11-08] MEDS: LEVETIRACETAM SOL (5 ML) 100 MG/ML UDC GT SCH ×2 (09:00→20:05)
[2018-11-08] MEDS: TRILEPTAL GT SCH ×2 (09:00→20:05)
[2018-11-08] MEDS: HYDROGEN PEROXIDE 480 ML BOTTLE TP SCH ×2 (09:00→20:06)
[2018-11-08] MEDS: ACIDOPHILUS/BULGARICUS 1 EACH TAB.CHEW GT SCH ×2 (09:00→17:00)
[2018-11-08] MEDS: DOCUSATE SODIUM LIQ 100 MG/10 ML UDC GT SCH (09:00)
[2018-11-08] MEDS: [UNRECOGNIZED DRUG - OTHER] TP SCH ×2 (09:00→20:06)
[2018-11-08] MEDS: VIT A TP SCH ×2 (09:00→20:06)
[2018-11-08] MEDS: FERROUS SULFATE - FOR SA ONLY 330 MG/7.5 ML UDC GT SCH ×2 (09:00→17:00)
[2018-11-08] MEDS: CLOTRIMAZOLE 1% 15 GM TUBE TP SCH ×4 (09:00→20:06)
[2018-11-08] MEDS: PROSOURCE DIETARY LIQUID 30 ML LIQUID GT SCH ×2 (09:00→17:00)
[2018-11-08] MEDS: MULTIVIT W/MINERALS 1 TAB TABLET GT SCH (09:00)
[2018-11-08] MEDS: CALCIUM CARBONATE 500 MG TAB.CHEW GT SCH ×2 (09:00→17:00)
[2018-11-08] MEDS: TRIAMCINOLONE ACETONIDE 0.1% CR 15 GM TUBE TP SCH ×2 (09:00→20:06)
[2018-11-08] MEDS: Z GUARD REMEDY 4 OZ OINT TP SCH ×2 (09:00→20:06)
[2018-11-08 19:49] VITALS: BP 117/62
[2018-11-08] MEDS: ASCORBIC ACID 500 MG TABLET GT SCH (20:06)
[2018-11-09] MEDS: ALBUTEROL FS 2.5 MG/3 ML VIAL.NEB NEB SCH ×4 (00:33→19:21)
[2018-11-09] MEDS: GLUCERNA 1.2 1,000 ML BOTTLE GT PRN (04:49)
[2018-11-09] MEDS: GABAPENTIN 300 MG CAPSULE GT SCH ×3 (05:25→20:05)
[2018-11-09] MEDS: DEXILANT 30 MG GT SCH (05:26)
[2018-11-09] MEDS: METOCLOPRAMIDE HCL 10 MG/10 ML UDC GT SCH ×3 (05:26→20:06)
[2018-11-09] MEDS: BLOOD SUGAR DIAGNOSTIC 1 EACH STRIP IN SCH ×2 (05:32→18:26)
[2018-11-09] MEDS: INSULIN REGULAR, HUMAN 100 UNIT/ML 3 ML VIAL SQ PRN ×2 (05:33→18:27)
[2018-11-09 07:29] VITALS: BP 140/62
--- NOTE | 2018-11-09 07:34 | NUR ---
Female trach pt received unlabored on a mechanical vent. Pt trach is secure. Vent is plugged into a red outlet, alarms are set and audible, and BMV is at bedside. Addendum: 11/09/18 at 0735 by MARKIE PINO RT Amended: Links added.
[2018-11-09] MEDS: SIMETHICONE SUSP 40 MG/0.6 ML BOTTLE GT SCH ×2 (08:23→20:04)
[2018-11-09] MEDS: VIT A TP SCH ×2 (08:23→20:07)
[2018-11-09] MEDS: MULTIVIT W/MINERALS 1 TAB TABLET GT SCH (08:23)
[2018-11-09] MEDS: CALCIUM CARBONATE 500 MG TAB.CHEW GT SCH ×2 (08:23→17:04)
[2018-11-09] MEDS: TRILEPTAL GT SCH ×2 (08:23→20:06)
[2018-11-09] MEDS: DOCUSATE SODIUM LIQ 100 MG/10 ML UDC GT SCH (08:23)
[2018-11-09] MEDS: PROSOURCE DIETARY LIQUID 30 ML LIQUID GT SCH ×2 (08:23→17:04)
[2018-11-09] MEDS: ACIDOPHILUS/BULGARICUS 1 EACH TAB.CHEW GT SCH ×2 (08:23→17:04)
[2018-11-09] MEDS: HYDROGEN PEROXIDE 480 ML BOTTLE TP SCH ×2 (08:23→20:07)
[2018-11-09] MEDS: LEVETIRACETAM SOL (5 ML) 100 MG/ML UDC GT SCH ×2 (08:23→20:05)
[2018-11-09] MEDS: FERROUS SULFATE - FOR SA ONLY 330 MG/7.5 ML UDC GT SCH ×2 (08:23→17:04)
[2018-11-09] MEDS: TRIAMCINOLONE ACETONIDE 0.1% CR 15 GM TUBE TP SCH ×2 (08:23→20:07)
[2018-11-09] MEDS: [UNRECOGNIZED DRUG - OTHER] TP SCH ×2 (08:23→20:07)
[2018-11-09] MEDS: Z GUARD REMEDY 4 OZ OINT TP SCH ×2 (09:00→20:07)
[2018-11-09] MEDS: CLOTRIMAZOLE 1% 15 GM TUBE TP SCH ×4 (09:00→20:07)
[2018-11-09] MEDS: ASCORBIC ACID 500 MG TABLET GT SCH (20:07)
[2018-11-09 20:27] VITALS: BP 136/67
[2018-11-10] MEDS: GLUCERNA 1.2 1,000 ML BOTTLE GT PRN ×2 (00:04→17:55)
[2018-11-10] MEDS: ALBUTEROL FS 2.5 MG/3 ML VIAL.NEB NEB SCH ×4 (01:37→19:21)
[2018-11-10] MEDS: GABAPENTIN 300 MG CAPSULE GT SCH ×3 (05:24→20:04)
[2018-11-10] MEDS: METOCLOPRAMIDE HCL 10 MG/10 ML UDC GT SCH ×3 (05:25→20:06)
[2018-11-10] MEDS: DEXILANT 30 MG GT SCH (05:25)
[2018-11-10] MEDS: BLOOD SUGAR DIAGNOSTIC 1 EACH STRIP IN SCH ×2 (05:25→17:07)
[2018-11-10] MEDS: INSULIN REGULAR, HUMAN 100 UNIT/ML 3 ML VIAL SQ PRN ×2 (05:25→17:51)
[2018-11-10 08:03] VITALS: BP 136/70
[2018-11-10] MEDS: DOCUSATE SODIUM LIQ 100 MG/10 ML UDC GT SCH (08:54)
[2018-11-10] MEDS: LEVETIRACETAM SOL (5 ML) 100 MG/ML UDC GT SCH ×2 (08:54→20:04)
[2018-11-10] MEDS: FERROUS SULFATE - FOR SA ONLY 330 MG/7.5 ML UDC GT SCH ×2 (08:54→17:07)
[2018-11-10] MEDS: SIMETHICONE SUSP 40 MG/0.6 ML BOTTLE GT SCH ×2 (08:54→20:04)
[2018-11-10] MEDS: PROSOURCE DIETARY LIQUID 30 ML LIQUID GT SCH ×2 (08:55→17:07)
[2018-11-10] MEDS: CALCIUM CARBONATE 500 MG TAB.CHEW GT SCH ×2 (08:55→17:07)
[2018-11-10] MEDS: ACIDOPHILUS/BULGARICUS 1 EACH TAB.CHEW GT SCH ×2 (08:55→17:07)
[2018-11-10] MEDS: MULTIVIT W/MINERALS 1 TAB TABLET GT SCH (08:55)
[2018-11-10] MEDS: TRIAMCINOLONE ACETONIDE 0.1% CR 15 GM TUBE TP SCH ×2 (09:00→20:06)
[2018-11-10] MEDS: TRILEPTAL GT SCH ×2 (09:00→20:06)
[2018-11-10] MEDS: HYDROGEN PEROXIDE 480 ML BOTTLE TP SCH ×2 (09:00→20:07)
[2018-11-10] MEDS: VIT A TP SCH ×2 (09:00→20:06)
[2018-11-10] MEDS: Z GUARD REMEDY 4 OZ OINT TP SCH ×2 (09:00→20:07)
[2018-11-10] MEDS: CLOTRIMAZOLE 1% 15 GM TUBE TP SCH ×4 (09:00→20:07)
[2018-11-10] MEDS: [UNRECOGNIZED DRUG - OTHER] TP SCH ×2 (09:00→20:06)
--- NOTE | 2018-11-10 19:21 | NUR ---
RT NOTE: RECEIVED TRACH PT ON [facility] VENT ON NOTED SETTINGS PER MD ORDERS. TRACH IS PATENT AND SECURED. ASSET PROTECTION AGENT DONE. Q6 BREATHING TX GIVEN WITH NO ADVERSE REACTION NOTED. SX DONE PRN. VENT PLUGGED INTO RED OUTLET. ALARMS ON AND AUDIBLE. NEVA BAG @ BEDSIDE. NO RESP DISTRESS AT THIS TIME. WILL CONT TO MONITOR PT. Addendum: 11/11/18 at 0418 by QIANA MARY RT Amended: Links added.
[2018-11-10 20:00] VITALS: BP 123/84
[2018-11-10] MEDS: ASCORBIC ACID 500 MG TABLET GT SCH (20:06)
[2018-11-11] MEDS: ALBUTEROL FS 2.5 MG/3 ML VIAL.NEB NEB SCH ×4 (01:21→19:09)
[2018-11-11] MEDS: GABAPENTIN 300 MG CAPSULE GT SCH ×3 (05:09→21:12)
[2018-11-11] MEDS: INSULIN REGULAR, HUMAN 100 UNIT/ML 3 ML VIAL SQ PRN (05:11)
[2018-11-11] MEDS: DEXILANT 30 MG GT SCH (05:11)
[2018-11-11] MEDS: BLOOD SUGAR DIAGNOSTIC 1 EACH STRIP IN SCH ×2 (05:11→18:07)
[2018-11-11] MEDS: METOCLOPRAMIDE HCL 10 MG/10 ML UDC GT SCH ×3 (05:11→21:12)
[2018-11-11 07:36] VITALS: BP 122/80
--- NOTE | 2018-11-11 07:49 | NUR ---
Female trach pt received on a mechanical vent. Pt fariha is secure. Vent is plugged into a red outlet, alarms are set and audible, and BMV is at bedside. Addendum: 11/11/18 at 0749 by MARKIE PINO RT Amended: Links added.
[2018-11-11] MEDS: SIMETHICONE SUSP 40 MG/0.6 ML BOTTLE GT SCH ×2 (08:00→20:00)
[2018-11-11] MEDS: PROSOURCE DIETARY LIQUID 30 ML LIQUID GT SCH ×2 (09:54→17:00)
[2018-11-11] MEDS: ACIDOPHILUS/BULGARICUS 1 EACH TAB.CHEW GT SCH ×2 (09:54→17:00)
[2018-11-11] MEDS: MULTIVIT W/MINERALS 1 TAB TABLET GT SCH (09:54)
[2018-11-11] MEDS: TRILEPTAL GT SCH ×2 (09:54→21:12)
[2018-11-11] MEDS: CALCIUM CARBONATE 500 MG TAB.CHEW GT SCH ×2 (09:54→17:00)
[2018-11-11] MEDS: FERROUS SULFATE - FOR SA ONLY 330 MG/7.5 ML UDC GT SCH ×2 (09:54→17:00)
[2018-11-11] MEDS: DOCUSATE SODIUM LIQ 100 MG/10 ML UDC GT SCH (09:54)
[2018-11-11] MEDS: LEVETIRACETAM SOL (5 ML) 100 MG/ML UDC GT SCH ×2 (09:54→21:12)
[2018-11-11] MEDS: HYDROGEN PEROXIDE 480 ML BOTTLE TP SCH ×2 (09:55→21:13)
[2018-11-11] MEDS: VIT A TP SCH ×2 (09:55→21:13)
[2018-11-11] MEDS: TRIAMCINOLONE ACETONIDE 0.1% CR 15 GM TUBE TP SCH ×2 (09:55→21:13)
[2018-11-11] MEDS: [UNRECOGNIZED DRUG - OTHER] TP SCH ×2 (09:55→21:13)
[2018-11-11] MEDS: CLOTRIMAZOLE 1% 15 GM TUBE TP SCH ×4 (09:56→21:13)
[2018-11-11] MEDS: Z GUARD REMEDY 4 OZ OINT TP SCH ×2 (09:57→21:13)
[2018-11-11] MEDS ORDERED: CLOTRIMAZOLE 1% 15 GM TUBE TP PRN (11:30)
--- NOTE | 2018-11-11 12:50 | NUR ---
Pt's G-tube (tubing) opened on the side and leaked. G-tube was replaced with the same size, placement checked by 2 licensed nurses. Notified SLITTER AND CUTTER OPERATOR Anna Vargas who came to see pt. She ordered KUB to verify placement.
[2018-11-11] MEDS ORDERED: DIATR MEGLU/DIATRIZOATE SODIUM 30 ML BOTTLE (GASTROGRAPHIN) ONE (13:51)
--- NOTE | 2018-11-11 14:45 | NUR ---
KUB shows GT in satisfactory position. Resumed feeding and use of GT.
[2018-11-11 20:23] VITALS: BP 144/73
[2018-11-11] MEDS: ASCORBIC ACID 500 MG TABLET GT SCH (21:12)
[2018-11-11] MEDS: MAGNESIUM HYDROXIDE 30 ML UDC GT PRN (22:00)
[2018-11-12] MEDS: GLUCERNA 1.2 1,000 ML BOTTLE GT PRN (00:30)
[2018-11-12] MEDS: ALBUTEROL FS 2.5 MG/3 ML VIAL.NEB NEB SCH ×4 (01:33→19:35)
[2018-11-12] MEDS: BLOOD SUGAR DIAGNOSTIC 1 EACH STRIP IN SCH ×2 (05:22→18:43)
[2018-11-12] MEDS: GABAPENTIN 300 MG CAPSULE GT SCH ×3 (05:22→20:01)
[2018-11-12] MEDS: DEXILANT 30 MG GT SCH (05:22)
[2018-11-12] MEDS: METOCLOPRAMIDE HCL 10 MG/10 ML UDC GT SCH ×3 (05:22→20:04)
[2018-11-12] MEDS: INSULIN REGULAR, HUMAN 100 UNIT/ML 3 ML VIAL SQ PRN (05:23)
[2018-11-12] MEDS: BISACODYL SUPP (10 MG) 10 MG/SUPP.RECT SUPP.RECT RC PRN (06:33)
[2018-11-12 07:43] VITALS: BP 116/75
--- NOTE | 2018-11-12 07:55 | NUR ---
Female trach pt received unlabored on a mechanical vent. Pt trach is secure. Vent is plugged into a red outlet, alarms are set and audible, and BMV is at bedside. Addendum: 11/12/18 at 0756 by MARKIE PINO RT Amended: Links added.
[2018-11-12] MEDS: SIMETHICONE SUSP 40 MG/0.6 ML BOTTLE GT SCH ×2 (08:00→19:59)
[2018-11-12] MEDS: Z GUARD REMEDY 4 OZ OINT TP SCH ×2 (09:00→20:05)
[2018-11-12] MEDS: CALCIUM CARBONATE 500 MG TAB.CHEW GT SCH ×2 (09:00→17:00)
[2018-11-12] MEDS: DOCUSATE SODIUM LIQ 100 MG/10 ML UDC GT SCH (09:00)
[2018-11-12] MEDS: [UNRECOGNIZED DRUG - OTHER] TP SCH ×2 (09:00→20:05)
[2018-11-12] MEDS: LEVETIRACETAM SOL (5 ML) 100 MG/ML UDC GT SCH ×2 (09:00→20:01)
[2018-11-12] MEDS: TRILEPTAL GT SCH ×2 (09:00→20:03)
[2018-11-12] MEDS: VIT A TP SCH ×2 (09:00→20:05)
[2018-11-12] MEDS: TRIAMCINOLONE ACETONIDE 0.1% CR 15 GM TUBE TP SCH ×2 (09:00→20:05)
[2018-11-12] MEDS: HYDROGEN PEROXIDE 480 ML BOTTLE TP SCH ×2 (09:00→20:05)
[2018-11-12] MEDS: PROSOURCE DIETARY LIQUID 30 ML LIQUID GT SCH ×2 (09:00→17:00)
[2018-11-12] MEDS: MULTIVIT W/MINERALS 1 TAB TABLET GT SCH (09:00)
[2018-11-12] MEDS: ACIDOPHILUS/BULGARICUS 1 EACH TAB.CHEW GT SCH ×2 (09:00→17:00)
[2018-11-12] MEDS: CLOTRIMAZOLE 1% 15 GM TUBE TP SCH ×4 (09:00→20:05)
[2018-11-12] MEDS: FERROUS SULFATE - FOR SA ONLY 330 MG/7.5 ML UDC GT SCH ×2 (09:00→17:00)
--- NOTE | 2018-11-12 14:18 | NUR ---
Resident's sister is concern that patient might have a bacterial vaginosis because she has foul smell despite that she was just cleaned by [employer]. Patient has her monthly menstrual period and she want staff to keep a log on when she starts and end her period. general accounting manager aware. Dr. Luis notified of sister's concern with order to send for culture.
[2018-11-12] MEDS: ASCORBIC ACID 500 MG TABLET GT SCH (20:05)
[2018-11-12 20:21] VITALS: BP 124/73
--- NOTE | 2018-11-12 20:29 | NUR ---
RT NOTE PT RCVD TRACH'D ON MECHANICAL VENT WITH CHARTED SETTINGS. TX APRIL WELL. SX DONE. PT TRACH IS PATENT AND SECURE. VENT IS PLUGGED INTO RED OUTLET. ALARMS ARE ON AND AUDIBLE. AMBU BAG AT BEDSIDE. WILL CONTINUE TO MONITOR. Addendum: 11/12/18 at 2030 by MICH AVILA RT Amended: Links added.
[2018-11-13] MEDS: ALBUTEROL FS 2.5 MG/3 ML VIAL.NEB NEB SCH ×4 (00:55→19:45)
[2018-11-13] MEDS: METOCLOPRAMIDE HCL 10 MG/10 ML UDC GT SCH ×3 (05:03→20:56)
[2018-11-13] MEDS: BLOOD SUGAR DIAGNOSTIC 1 EACH STRIP IN SCH ×2 (05:03→18:34)
[2018-11-13] MEDS: DEXILANT 30 MG GT SCH (05:03)
[2018-11-13] MEDS: GABAPENTIN 300 MG CAPSULE GT SCH ×3 (05:03→20:56)
[2018-11-13 07:59] VITALS: BP 115/67
[2018-11-13] MEDS: SIMETHICONE SUSP 40 MG/0.6 ML BOTTLE GT SCH ×2 (08:00→20:56)
[2018-11-13] MEDS: FERROUS SULFATE - FOR SA ONLY 330 MG/7.5 ML UDC GT SCH ×2 (09:00→17:33)
[2018-11-13] MEDS: TRIAMCINOLONE ACETONIDE 0.1% CR 15 GM TUBE TP SCH ×2 (09:00→21:39)
[2018-11-13] MEDS: LEVETIRACETAM SOL (5 ML) 100 MG/ML UDC GT SCH ×2 (09:00→20:56)
[2018-11-13] MEDS: DOCUSATE SODIUM LIQ 100 MG/10 ML UDC GT SCH (09:00)
[2018-11-13] MEDS: CLOTRIMAZOLE 1% 15 GM TUBE TP SCH ×4 (09:00→21:39)
[2018-11-13] MEDS: HYDROGEN PEROXIDE 480 ML BOTTLE TP SCH ×2 (09:00→21:39)
[2018-11-13] MEDS: MULTIVIT W/MINERALS 1 TAB TABLET GT SCH (09:00)
[2018-11-13] MEDS: CALCIUM CARBONATE 500 MG TAB.CHEW GT SCH ×2 (09:00→17:33)
[2018-11-13] MEDS: ACIDOPHILUS/BULGARICUS 1 EACH TAB.CHEW GT SCH ×2 (09:00→17:33)
[2018-11-13] MEDS: [UNRECOGNIZED DRUG - OTHER] TP SCH ×2 (09:00→21:39)
[2018-11-13] MEDS: Z GUARD REMEDY 4 OZ OINT TP SCH ×2 (09:00→21:39)
[2018-11-13] MEDS: PROSOURCE DIETARY LIQUID 30 ML LIQUID GT SCH ×2 (09:00→17:33)
[2018-11-13] MEDS: TRILEPTAL GT SCH ×2 (09:00→20:56)
[2018-11-13] MEDS: VIT A TP SCH ×2 (09:00→21:39)
--- NOTE | 2018-11-13 10:30 | NUR ---
Seen and examined by Dr. Luis, no new order given.
[2018-11-13 19:36] VITALS: BP 125/72
[2018-11-13] MEDS: ASCORBIC ACID 500 MG TABLET GT SCH (20:56)
[2018-11-14] MEDS: ALBUTEROL FS 2.5 MG/3 ML VIAL.NEB NEB SCH ×4 (02:18→19:31)
[2018-11-14] MEDS: GABAPENTIN 300 MG CAPSULE GT SCH ×3 (05:02→21:05)
[2018-11-14] MEDS: METOCLOPRAMIDE HCL 10 MG/10 ML UDC GT SCH ×3 (05:02→21:05)
[2018-11-14] MEDS: DEXILANT 30 MG GT SCH (05:02)
[2018-11-14] MEDS: INSULIN REGULAR, HUMAN 100 UNIT/ML 3 ML VIAL SQ PRN ×2 (05:55→17:20)
[2018-11-14] MEDS: BLOOD SUGAR DIAGNOSTIC 1 EACH STRIP IN SCH ×2 (05:55→17:19)
[2018-11-14 07:24] VITALS: BP 95/69
[2018-11-14] MEDS: SIMETHICONE SUSP 40 MG/0.6 ML BOTTLE GT SCH ×2 (08:09→20:00)
[2018-11-14] MEDS: VIT A TP SCH ×2 (08:10→21:06)
[2018-11-14] MEDS: HYDROGEN PEROXIDE 480 ML BOTTLE TP SCH ×2 (08:10→21:06)
[2018-11-14] MEDS: PROSOURCE DIETARY LIQUID 30 ML LIQUID GT SCH ×2 (08:10→17:19)
[2018-11-14] MEDS: ACIDOPHILUS/BULGARICUS 1 EACH TAB.CHEW GT SCH ×2 (08:10→17:19)
[2018-11-14] MEDS: MULTIVIT W/MINERALS 1 TAB TABLET GT SCH (08:10)
[2018-11-14] MEDS: CALCIUM CARBONATE 500 MG TAB.CHEW GT SCH ×2 (08:10→17:19)
[2018-11-14] MEDS: [UNRECOGNIZED DRUG - OTHER] TP SCH ×2 (08:10→21:06)
[2018-11-14] MEDS: CLOTRIMAZOLE 1% 15 GM TUBE TP SCH ×4 (08:10→21:06)
[2018-11-14] MEDS: FERROUS SULFATE - FOR SA ONLY 330 MG/7.5 ML UDC GT SCH ×2 (08:10→17:19)
[2018-11-14] MEDS: DOCUSATE SODIUM LIQ 100 MG/10 ML UDC GT SCH (08:10)
[2018-11-14] MEDS: TRIAMCINOLONE ACETONIDE 0.1% CR 15 GM TUBE TP SCH ×2 (08:10→21:06)
[2018-11-14] MEDS: LEVETIRACETAM SOL (5 ML) 100 MG/ML UDC GT SCH ×2 (08:10→21:05)
[2018-11-14] MEDS: TRILEPTAL GT SCH ×2 (08:10→21:05)
[2018-11-14] MEDS: Z GUARD REMEDY 4 OZ OINT TP SCH ×2 (08:11→21:06)
--- NOTE | 2018-11-14 19:31 | NUR ---
RT NOTE: RECEIVED TRACH PT ON [facility] VENT ON NOTED SETTINGS PER MD ORDERS. TRACH IS PATENT AND SECURED. BUSINESS SERVICES MANAGER DONE. Q6 BREATHING TX GIVEN WITH NO ADVERSE REACTION NOTED. SX DONE PRN. VENT PLUGGED INTO RED OUTLET. ALARMS ON AND AUDIBLE. NEVA BAG @ BEDSIDE. NO RESP DISTRESS AT THIS TIME. WILL CONT TO MONITOR PT. Addendum: 11/15/18 at 0236 by QIANA MARY RT Amended: Links added.
[2018-11-14 19:37] VITALS: BP 127/80
[2018-11-14] MEDS: ASCORBIC ACID 500 MG TABLET GT SCH (21:06)
[2018-11-15] MEDS: ALBUTEROL FS 2.5 MG/3 ML VIAL.NEB NEB SCH ×4 (01:25→19:12)
[2018-11-15] MEDS: GABAPENTIN 300 MG CAPSULE GT SCH ×3 (05:33→21:00)
[2018-11-15] MEDS: METOCLOPRAMIDE HCL 10 MG/10 ML UDC GT SCH ×3 (05:34→21:00)
[2018-11-15] MEDS: BLOOD SUGAR DIAGNOSTIC 1 EACH STRIP IN SCH ×2 (05:34→18:23)
[2018-11-15] MEDS: DEXILANT 30 MG GT SCH (05:34)
--- NOTE | 2018-11-15 07:36 | NUR ---
Female trach pt received unlabored on a mechanical vent. Pt trach is secure. Vent is plugged into a red outlet, alarms are set and audible, and BMV is at bedside. Addendum: 11/15/18 at 0737 by MARKIE PINO RT Amended: Links added.
[2018-11-15] MEDS: SIMETHICONE SUSP 40 MG/0.6 ML BOTTLE GT SCH ×2 (08:00→20:00)
[2018-11-15] MEDS: CLOTRIMAZOLE 1% 15 GM TUBE TP SCH ×4 (09:00→21:05)
[2018-11-15] MEDS: TRIAMCINOLONE ACETONIDE 0.1% CR 15 GM TUBE TP SCH ×2 (09:00→21:05)
[2018-11-15] MEDS: [UNRECOGNIZED DRUG - OTHER] TP SCH ×2 (09:00→21:05)
[2018-11-15] MEDS: MULTIVIT W/MINERALS 1 TAB TABLET GT SCH (09:00)
[2018-11-15] MEDS: CALCIUM CARBONATE 500 MG TAB.CHEW GT SCH ×2 (09:00→17:00)
[2018-11-15] MEDS: Z GUARD REMEDY 4 OZ OINT TP SCH ×2 (09:00→21:05)
[2018-11-15] MEDS: TRILEPTAL GT SCH ×2 (09:00→21:00)
[2018-11-15] MEDS: FERROUS SULFATE - FOR SA ONLY 330 MG/7.5 ML UDC GT SCH ×2 (09:00→17:00)
[2018-11-15] MEDS: DOCUSATE SODIUM LIQ 100 MG/10 ML UDC GT SCH (09:00)
[2018-11-15] MEDS: HYDROGEN PEROXIDE 480 ML BOTTLE TP SCH ×2 (09:00→21:05)
[2018-11-15] MEDS: VIT A TP SCH ×2 (09:00→21:05)
[2018-11-15] MEDS: PROSOURCE DIETARY LIQUID 30 ML LIQUID GT SCH ×2 (09:00→17:00)
[2018-11-15] MEDS: ACIDOPHILUS/BULGARICUS 1 EACH TAB.CHEW GT SCH ×2 (09:00→17:00)
[2018-11-15] MEDS: LEVETIRACETAM SOL (5 ML) 100 MG/ML UDC GT SCH ×2 (09:00→21:00)
[2018-11-15 11:40] VITALS: BP 118/72
[2018-11-15] MEDS: GLUCERNA 1.2 1,000 ML BOTTLE GT PRN (14:05)
[2018-11-15] MEDS: INSULIN REGULAR, HUMAN 100 UNIT/ML 3 ML VIAL SQ PRN (18:24)
[2018-11-15 19:42] VITALS: BP 128/73
[2018-11-15] MEDS: ASCORBIC ACID 500 MG TABLET GT SCH (21:00)
[2018-11-16] MEDS: ALBUTEROL FS 2.5 MG/3 ML VIAL.NEB NEB SCH ×4 (00:49→19:21)
[2018-11-16] MEDS: GABAPENTIN 300 MG CAPSULE GT SCH ×3 (05:46→21:58)
[2018-11-16] MEDS: BLOOD SUGAR DIAGNOSTIC 1 EACH STRIP IN SCH ×2 (05:46→17:56)
[2018-11-16] MEDS: METOCLOPRAMIDE HCL 10 MG/10 ML UDC GT SCH ×3 (05:46→21:56)
[2018-11-16] MEDS: DEXILANT 30 MG GT SCH (05:46)
[2018-11-16 07:50] VITALS: BP 134/75
[2018-11-16] MEDS: VIT A TP SCH ×2 (09:59→21:54)
[2018-11-16] MEDS: DOCUSATE SODIUM LIQ 100 MG/10 ML UDC GT SCH (09:59)
[2018-11-16] MEDS: LEVETIRACETAM SOL (5 ML) 100 MG/ML UDC GT SCH ×2 (09:59→21:53)
[2018-11-16] MEDS: PROSOURCE DIETARY LIQUID 30 ML LIQUID GT SCH ×2 (09:59→17:54)
[2018-11-16] MEDS: ACIDOPHILUS/BULGARICUS 1 EACH TAB.CHEW GT SCH ×2 (09:59→17:54)
[2018-11-16] MEDS: FERROUS SULFATE - FOR SA ONLY 330 MG/7.5 ML UDC GT SCH ×2 (09:59→17:54)
[2018-11-16] MEDS: HYDROGEN PEROXIDE 480 ML BOTTLE TP SCH ×2 (09:59→21:55)
[2018-11-16] MEDS: TRILEPTAL GT SCH ×2 (09:59→21:59)
[2018-11-16] MEDS: CLOTRIMAZOLE 1% 15 GM TUBE TP SCH ×4 (09:59→21:54)
[2018-11-16] MEDS: TRIAMCINOLONE ACETONIDE 0.1% CR 15 GM TUBE TP SCH ×2 (09:59→21:54)
[2018-11-16] MEDS: MULTIVIT W/MINERALS 1 TAB TABLET GT SCH (09:59)
[2018-11-16] MEDS: [UNRECOGNIZED DRUG - OTHER] TP SCH ×2 (09:59→21:54)
[2018-11-16] MEDS: SIMETHICONE SUSP 40 MG/0.6 ML BOTTLE GT SCH ×2 (09:59→19:43)
[2018-11-16] MEDS: CALCIUM CARBONATE 500 MG TAB.CHEW GT SCH ×2 (09:59→17:54)
[2018-11-16] MEDS: Z GUARD REMEDY 4 OZ OINT TP SCH ×2 (09:59→21:54)
[2018-11-16] MEDS: GLUCERNA 1.2 1,000 ML BOTTLE GT PRN (12:25)
[2018-11-16] MEDS: INSULIN REGULAR, HUMAN 100 UNIT/ML 3 ML VIAL SQ PRN (17:56)
[2018-11-16] MEDS: ACETAMINOPHEN 650 MG/20 ML UDC- SA PATIENTS-FEVER ONLY GT PRN (19:42)
[2018-11-16 20:18] VITALS: BP 134/77
[2018-11-16] MEDS: ASCORBIC ACID 500 MG TABLET GT SCH (21:56)
[2018-11-17] MEDS: ALBUTEROL FS 2.5 MG/3 ML VIAL.NEB NEB SCH ×4 (01:38→19:47)
[2018-11-17] MEDS: METOCLOPRAMIDE HCL 10 MG/10 ML UDC GT SCH ×3 (05:51→21:02)
[2018-11-17] MEDS: DEXILANT 30 MG GT SCH (05:51)
[2018-11-17] MEDS: GABAPENTIN 300 MG CAPSULE GT SCH ×3 (05:52→21:02)
[2018-11-17] MEDS: BLOOD SUGAR DIAGNOSTIC 1 EACH STRIP IN SCH ×2 (06:06→17:41)
[2018-11-17 07:51] VITALS: BP 140/71
[2018-11-17] MEDS: SIMETHICONE SUSP 40 MG/0.6 ML BOTTLE GT SCH ×2 (08:00→20:00)
[2018-11-17] MEDS: [UNRECOGNIZED DRUG - OTHER] TP SCH ×2 (09:00→21:03)
[2018-11-17] MEDS: HYDROGEN PEROXIDE 480 ML BOTTLE TP SCH ×2 (09:00→21:04)
[2018-11-17] MEDS: DOCUSATE SODIUM LIQ 100 MG/10 ML UDC GT SCH (09:00)
[2018-11-17] MEDS: CALCIUM CARBONATE 500 MG TAB.CHEW GT SCH ×2 (09:00→17:12)
[2018-11-17] MEDS: FERROUS SULFATE - FOR SA ONLY 330 MG/7.5 ML UDC GT SCH ×2 (09:00→17:12)
[2018-11-17] MEDS: LEVETIRACETAM SOL (5 ML) 100 MG/ML UDC GT SCH ×2 (09:00→21:02)
[2018-11-17] MEDS: PROSOURCE DIETARY LIQUID 30 ML LIQUID GT SCH ×2 (09:00→17:12)
[2018-11-17] MEDS: CLOTRIMAZOLE 1% 15 GM TUBE TP SCH ×4 (09:00→21:05)
[2018-11-17] MEDS: TRILEPTAL GT SCH ×2 (09:00→21:02)
[2018-11-17] MEDS: Z GUARD REMEDY 4 OZ OINT TP SCH ×2 (09:00→21:05)
[2018-11-17] MEDS: MULTIVIT W/MINERALS 1 TAB TABLET GT SCH (09:00)
[2018-11-17] MEDS: VIT A TP SCH ×2 (09:00→21:03)
[2018-11-17] MEDS: TRIAMCINOLONE ACETONIDE 0.1% CR 15 GM TUBE TP SCH ×2 (09:00→21:03)
[2018-11-17] MEDS: ACIDOPHILUS/BULGARICUS 1 EACH TAB.CHEW GT SCH ×2 (09:00→17:12)
[2018-11-17] MEDS: GLUCERNA 1.2 1,000 ML BOTTLE GT PRN (10:28)
[2018-11-17] MEDS: INSULIN REGULAR, HUMAN 100 UNIT/ML 3 ML VIAL SQ PRN (17:41)
[2018-11-17 19:35] VITALS: BP 136/69
--- NOTE | 2018-11-17 20:24 | NUR ---
RT NOTE PT RCVD TRACH'D ON MECHANICAL VENT WITH CHARTED SETTINGS. TX APRIL WELL. SX DONE. PT TRACH IS PATENT AND SECURE. VENT IS PLUGGED INTO RED OUTLET. ALARMS ARE ON AND AUDIBLE. AMBU BAG AT BEDSIDE. WILL CONTINUE TO MONITOR. Addendum: 11/17/18 at 2023 by MICH AVILA RT Amended: Links added.
[2018-11-17] MEDS: ASCORBIC ACID 500 MG TABLET GT SCH (21:02)
[2018-11-18] MEDS: ALBUTEROL FS 2.5 MG/3 ML VIAL.NEB NEB SCH ×4 (01:06→19:36)
[2018-11-18] MEDS: GABAPENTIN 300 MG CAPSULE GT SCH ×3 (05:24→20:59)
[2018-11-18] MEDS: DEXILANT 30 MG GT SCH (05:24)
[2018-11-18] MEDS: BLOOD SUGAR DIAGNOSTIC 1 EACH STRIP IN SCH ×2 (05:24→17:25)
[2018-11-18] MEDS: METOCLOPRAMIDE HCL 10 MG/10 ML UDC GT SCH ×3 (05:24→20:59)
[2018-11-18] MEDS: INSULIN REGULAR, HUMAN 100 UNIT/ML 3 ML VIAL SQ PRN (05:25)
[2018-11-18] MEDS: GLUCERNA 1.2 1,000 ML BOTTLE GT PRN (06:02)
[2018-11-18 07:45] VITALS: BP 120/66
[2018-11-18] MEDS: SIMETHICONE SUSP 40 MG/0.6 ML BOTTLE GT SCH ×2 (08:00→20:59)
--- NOTE | 2018-11-18 08:20 | NUR ---
RT NOTE PT RCVD TRACH'D ON MECHANICAL VENT WITH CHARTED SETTINGS. TX APRIL WELL. SX DONE. PT TRACH IS PATENT AND SECURE. VENT IS PLUGGED INTO RED OUTLET. ALARMS ARE ON AND AUDIBLE. AMBU BAG AT BEDSIDE. WILL CONTINUE TO MONITOR.
[2018-11-18] MEDS: VIT A TP SCH ×2 (09:22→21:03)
[2018-11-18] MEDS: CALCIUM CARBONATE 500 MG TAB.CHEW GT SCH ×2 (09:22→17:25)
[2018-11-18] MEDS: TRIAMCINOLONE ACETONIDE 0.1% CR 15 GM TUBE TP SCH ×2 (09:22→21:00)
[2018-11-18] MEDS: [UNRECOGNIZED DRUG - OTHER] TP SCH ×2 (09:22→21:03)
[2018-11-18] MEDS: MULTIVIT W/MINERALS 1 TAB TABLET GT SCH (09:22)
[2018-11-18] MEDS: FERROUS SULFATE - FOR SA ONLY 330 MG/7.5 ML UDC GT SCH ×2 (09:22→17:25)
[2018-11-18] MEDS: LEVETIRACETAM SOL (5 ML) 100 MG/ML UDC GT SCH ×2 (09:22→20:59)
[2018-11-18] MEDS: TRILEPTAL GT SCH ×2 (09:22→20:59)
[2018-11-18] MEDS: DOCUSATE SODIUM LIQ 100 MG/10 ML UDC GT SCH (09:22)
[2018-11-18] MEDS: PROSOURCE DIETARY LIQUID 30 ML LIQUID GT SCH ×2 (09:22→17:25)
[2018-11-18] MEDS: ACIDOPHILUS/BULGARICUS 1 EACH TAB.CHEW GT SCH ×2 (09:22→17:25)
[2018-11-18] MEDS: CLOTRIMAZOLE 1% 15 GM TUBE TP SCH ×4 (09:23→21:03)
[2018-11-18] MEDS: HYDROGEN PEROXIDE 480 ML BOTTLE TP SCH ×2 (09:23→21:03)
[2018-11-18] MEDS: Z GUARD REMEDY 4 OZ OINT TP SCH ×2 (09:24→21:03)
--- NOTE | 2018-11-18 20:13 | NUR ---
RT NOTE PT RCVD TRACH'D ON MECHANICAL VENT WITH CHARTED SETTINGS. TX APRIL WELL. SX DONE. PT TRACH IS PATENT AND SECURE. VENT IS PLUGGED INTO RED OUTLET. ALARMS ARE ON AND AUDIBLE. AMBU BAG AT BEDSIDE. WILL CONTINUE TO MONITOR. Addendum: 11/18/18 at 2013 by MICH AVILA RT Amended: Links added.
[2018-11-18] MEDS: ASCORBIC ACID 500 MG TABLET GT SCH (20:59)
[2018-11-18 23:30] VITALS: BP 121/64
[2018-11-19] MEDS: GLUCERNA 1.2 1,000 ML BOTTLE GT PRN ×2 (00:30→16:41)
[2018-11-19] MEDS: ALBUTEROL FS 2.5 MG/3 ML VIAL.NEB NEB SCH ×4 (00:35→19:26)
[2018-11-19] MEDS: METOCLOPRAMIDE HCL 10 MG/10 ML UDC GT SCH ×3 (05:00→20:37)
[2018-11-19] MEDS: GABAPENTIN 300 MG CAPSULE GT SCH ×3 (05:00→20:37)
[2018-11-19] MEDS: DEXILANT 30 MG GT SCH (06:08)
[2018-11-19] MEDS: BLOOD SUGAR DIAGNOSTIC 1 EACH STRIP IN SCH ×2 (06:08→17:07)
[2018-11-19] MEDS: INSULIN REGULAR, HUMAN 100 UNIT/ML 3 ML VIAL SQ PRN (06:09)
[2018-11-19 07:31] VITALS: BP 130/72
[2018-11-19] MEDS: SIMETHICONE SUSP 40 MG/0.6 ML BOTTLE GT SCH ×2 (08:00→20:37)
[2018-11-19] MEDS: ACIDOPHILUS/BULGARICUS 1 EACH TAB.CHEW GT SCH ×2 (09:49→16:41)
[2018-11-19] MEDS: Z GUARD REMEDY 4 OZ OINT TP SCH ×2 (09:49→20:38)
[2018-11-19] MEDS: VIT A TP SCH ×2 (09:49→20:37)
[2018-11-19] MEDS: TRIAMCINOLONE ACETONIDE 0.1% CR 15 GM TUBE TP SCH ×2 (09:49→20:37)
[2018-11-19] MEDS: FERROUS SULFATE - FOR SA ONLY 330 MG/7.5 ML UDC GT SCH ×2 (09:49→16:41)
[2018-11-19] MEDS: MULTIVIT W/MINERALS 1 TAB TABLET GT SCH (09:49)
[2018-11-19] MEDS: DOCUSATE SODIUM LIQ 100 MG/10 ML UDC GT SCH (09:49)
[2018-11-19] MEDS: HYDROGEN PEROXIDE 480 ML BOTTLE TP SCH ×2 (09:49→20:37)
[2018-11-19] MEDS: CALCIUM CARBONATE 500 MG TAB.CHEW GT SCH ×2 (09:49→16:41)
[2018-11-19] MEDS: LEVETIRACETAM SOL (5 ML) 100 MG/ML UDC GT SCH ×2 (09:49→20:37)
[2018-11-19] MEDS: PROSOURCE DIETARY LIQUID 30 ML LIQUID GT SCH ×2 (09:49→16:41)
[2018-11-19] MEDS: [UNRECOGNIZED DRUG - OTHER] TP SCH ×2 (09:49→20:37)
[2018-11-19] MEDS: CLOTRIMAZOLE 1% 15 GM TUBE TP SCH ×3 (09:49→20:38)
[2018-11-19] MEDS: TRILEPTAL GT SCH ×2 (09:49→20:37)
--- NOTE | 2018-11-19 11:42 | NUR ---
Ordered wound consult for re-evaluation of healing sacral p.u.
--- NOTE | 2018-11-19 15:00 | NUR ---
Seen and examined by Dr. Luis, no new order given.
[2018-11-19 20:27] VITALS: BP 122/86
[2018-11-19] MEDS: ASCORBIC ACID 500 MG TABLET GT SCH (20:37)
[2018-11-20] MEDS: ALBUTEROL FS 2.5 MG/3 ML VIAL.NEB NEB SCH ×4 (01:25→19:23)
[2018-11-20] MEDS: GABAPENTIN 300 MG CAPSULE GT SCH ×3 (05:11→20:13)
[2018-11-20] MEDS: METOCLOPRAMIDE HCL 10 MG/10 ML UDC GT SCH ×3 (05:12→20:13)
[2018-11-20] MEDS: DEXILANT 30 MG GT SCH (05:12)
[2018-11-20] MEDS: INSULIN REGULAR, HUMAN 100 UNIT/ML 3 ML VIAL SQ PRN (05:12)
[2018-11-20] MEDS: BLOOD SUGAR DIAGNOSTIC 1 EACH STRIP IN SCH ×2 (05:12→17:52)
[2018-11-20 08:00] VITALS: BP 115/72
[2018-11-20] MEDS: SIMETHICONE SUSP 40 MG/0.6 ML BOTTLE GT SCH ×2 (08:00→20:13)
[2018-11-20] MEDS: CLOTRIMAZOLE 1% 15 GM TUBE TP SCH ×2 (09:19→20:14)
[2018-11-20] MEDS: PROSOURCE DIETARY LIQUID 30 ML LIQUID GT SCH ×2 (09:19→17:52)
[2018-11-20] MEDS: FERROUS SULFATE - FOR SA ONLY 330 MG/7.5 ML UDC GT SCH ×2 (09:19→17:52)
[2018-11-20] MEDS: MULTIVIT W/MINERALS 1 TAB TABLET GT SCH (09:19)
[2018-11-20] MEDS: DOCUSATE SODIUM LIQ 100 MG/10 ML UDC GT SCH (09:19)
[2018-11-20] MEDS: [UNRECOGNIZED DRUG - OTHER] TP SCH ×2 (09:19→20:13)
[2018-11-20] MEDS: TRILEPTAL GT SCH ×2 (09:19→20:13)
[2018-11-20] MEDS: VIT A TP SCH ×2 (09:19→20:13)
[2018-11-20] MEDS: LEVETIRACETAM SOL (5 ML) 100 MG/ML UDC GT SCH ×2 (09:19→20:13)
[2018-11-20] MEDS: TRIAMCINOLONE ACETONIDE 0.1% CR 15 GM TUBE TP SCH ×2 (09:19→20:13)
[2018-11-20] MEDS: CALCIUM CARBONATE 500 MG TAB.CHEW GT SCH ×2 (09:19→17:52)
[2018-11-20] MEDS: HYDROGEN PEROXIDE 480 ML BOTTLE TP SCH ×2 (09:19→20:13)
[2018-11-20] MEDS: ACIDOPHILUS/BULGARICUS 1 EACH TAB.CHEW GT SCH ×2 (09:19→17:52)
[2018-11-20] MEDS: Z GUARD REMEDY 4 OZ OINT TP SCH ×2 (09:20→20:14)
[2018-11-20] MEDS: GLUCERNA 1.2 1,000 ML BOTTLE GT PRN (17:52)
[2018-11-20 19:31] VITALS: BP 117/59
[2018-11-20] MEDS: MAGNESIUM HYDROXIDE 30 ML UDC GT PRN (20:12)
[2018-11-20] MEDS: ASCORBIC ACID 500 MG TABLET GT SCH (20:13)
[2018-11-21] MEDS: ALBUTEROL FS 2.5 MG/3 ML VIAL.NEB NEB SCH ×4 (01:34→20:01)
[2018-11-21] MEDS: GABAPENTIN 300 MG CAPSULE GT SCH ×3 (05:12→20:16)
[2018-11-21] MEDS: BLOOD SUGAR DIAGNOSTIC 1 EACH STRIP IN SCH ×2 (05:12→17:32)
[2018-11-21] MEDS: DEXILANT 30 MG GT SCH (05:12)
[2018-11-21] MEDS: METOCLOPRAMIDE HCL 10 MG/10 ML UDC GT SCH ×3 (05:12→20:13)
[2018-11-21] MEDS: INSULIN REGULAR, HUMAN 100 UNIT/ML 3 ML VIAL SQ PRN ×2 (05:14→17:33)
--- NOTE | 2018-11-21 05:36 | NUR ---
RT NOTE TRACH TUBE IN PLACE, PATENT, AND SECURED. ALARMS ON AUDIBLE. VENT PLUGGED IN TO THE RED OUTLET. AMBU BAG AND BACK UP TRACH BY THE BEDSIDE. PATIENT SHOWS NO SIGNS OF ANY RESP DISTRESS. VITALS STABLE AT THIS TIME. Addendum: 11/21/18 at 0539 by ADRIÁN THOMAS RT Amended: Links added.
[2018-11-21 08:00] VITALS: BP 123/67
[2018-11-21] MEDS: TRIAMCINOLONE ACETONIDE 0.1% CR 15 GM TUBE TP SCH ×2 (08:15→21:00)
[2018-11-21] MEDS: FERROUS SULFATE - FOR SA ONLY 330 MG/7.5 ML UDC GT SCH ×2 (08:15→17:19)
[2018-11-21] MEDS: TRILEPTAL GT SCH ×2 (08:15→20:11)
[2018-11-21] MEDS: CALCIUM CARBONATE 500 MG TAB.CHEW GT SCH ×2 (08:15→17:20)
[2018-11-21] MEDS: SIMETHICONE SUSP 40 MG/0.6 ML BOTTLE GT SCH ×2 (08:15→20:04)
[2018-11-21] MEDS: LEVETIRACETAM SOL (5 ML) 100 MG/ML UDC GT SCH ×2 (08:15→20:05)
[2018-11-21] MEDS: DOCUSATE SODIUM LIQ 100 MG/10 ML UDC GT SCH (08:15)
[2018-11-21] MEDS: MULTIVIT W/MINERALS 1 TAB TABLET GT SCH (08:15)
[2018-11-21] MEDS: PROSOURCE DIETARY LIQUID 30 ML LIQUID GT SCH ×2 (08:15→17:19)
[2018-11-21] MEDS: ACIDOPHILUS/BULGARICUS 1 EACH TAB.CHEW GT SCH ×2 (08:15→17:19)
[2018-11-21] MEDS: Z GUARD REMEDY 4 OZ OINT TP SCH ×2 (08:16→21:00)
[2018-11-21] MEDS: CLOTRIMAZOLE 1% 15 GM TUBE TP SCH ×2 (08:16→21:00)
[2018-11-21] MEDS: HYDROGEN PEROXIDE 480 ML BOTTLE TP SCH ×2 (08:16→21:00)
[2018-11-21] MEDS: VIT A TP SCH ×2 (08:16→21:00)
[2018-11-21] MEDS: [UNRECOGNIZED DRUG - OTHER] TP SCH ×2 (08:16→21:00)
[2018-11-21] MEDS: GLUCERNA 1.2 1,000 ML BOTTLE GT PRN (17:20)
[2018-11-21 19:28] VITALS: BP 157/90
[2018-11-21] MEDS: ASCORBIC ACID 500 MG TABLET GT SCH (20:08)
--- NOTE | 2018-11-21 20:56 | NUR ---
RT NOTE PT RCVD TRACH'D ON MECHANICAL VENT WITH CHARTED SETTINGS. TX APRIL WELL. SX DONE. PT TRACH IS PATENT AND SECURE. VENT IS PLUGGED INTO RED OUTLET. ALARMS ARE ON AND AUDIBLE. AMBU BAG AT BEDSIDE. WILL CONTINUE TO MONITOR. Addendum: 11/21/18 at 2055 by MICH AVILA RT Amended: Links added.
[2018-11-22] MEDS: ALBUTEROL FS 2.5 MG/3 ML VIAL.NEB NEB SCH ×4 (00:45→19:53)
[2018-11-22 04:20] VITALS: BP 157/90
[2018-11-22] MEDS: GABAPENTIN 300 MG CAPSULE GT SCH ×3 (05:06→21:00)
[2018-11-22] MEDS: METOCLOPRAMIDE HCL 10 MG/10 ML UDC GT SCH ×3 (05:06→21:00)
[2018-11-22] MEDS: DEXILANT 30 MG GT SCH (05:11)
[2018-11-22] MEDS: BLOOD SUGAR DIAGNOSTIC 1 EACH STRIP IN SCH ×2 (06:11→19:00)
[2018-11-22 07:50] VITALS: BP 106/65
[2018-11-22] MEDS: SIMETHICONE SUSP 40 MG/0.6 ML BOTTLE GT SCH ×2 (08:00→20:21)
[2018-11-22] MEDS: TRIAMCINOLONE ACETONIDE 0.1% CR 15 GM TUBE TP SCH ×2 (09:00→21:00)
[2018-11-22] MEDS: CLOTRIMAZOLE 1% 15 GM TUBE TP SCH ×2 (09:00→21:00)
[2018-11-22] MEDS: [UNRECOGNIZED DRUG - OTHER] TP SCH ×2 (09:00→21:00)
[2018-11-22] MEDS: HYDROGEN PEROXIDE 480 ML BOTTLE TP SCH ×2 (09:00→21:00)
[2018-11-22] MEDS: Z GUARD REMEDY 4 OZ OINT TP SCH ×2 (09:00→21:00)
[2018-11-22] MEDS: VIT A TP SCH ×2 (09:00→21:00)
--- NOTE | 2018-11-22 09:10 | NUR ---
Seen by wound nurse Jaye. She said sacral wound is healed. Received order to apply Mepilex dressing q shift for 30 days.
[2018-11-22] MEDS: FERROUS SULFATE - FOR SA ONLY 330 MG/7.5 ML UDC GT SCH ×2 (09:29→17:00)
[2018-11-22] MEDS: DOCUSATE SODIUM LIQ 100 MG/10 ML UDC GT SCH (09:29)
[2018-11-22] MEDS: LEVETIRACETAM SOL (5 ML) 100 MG/ML UDC GT SCH ×2 (09:29→21:00)
[2018-11-22] MEDS: PROSOURCE DIETARY LIQUID 30 ML LIQUID GT SCH ×2 (09:31→17:00)
[2018-11-22] MEDS: MULTIVIT W/MINERALS 1 TAB TABLET GT SCH (09:31)
[2018-11-22] MEDS: ACIDOPHILUS/BULGARICUS 1 EACH TAB.CHEW GT SCH ×2 (09:31→17:00)
[2018-11-22] MEDS: CALCIUM CARBONATE 500 MG TAB.CHEW GT SCH ×2 (09:31→17:00)
[2018-11-22] MEDS: TRILEPTAL GT SCH ×2 (09:31→21:00)
--- NOTE | 2018-11-22 12:18 | NUR ---
TRACH TUBE, TRACH TIE AND GAUZE CHANGED BY RT AND RN. NO ADVERSE REACTIONS, NO RESP DISTRESS NOTED. Addendum: 11/22/18 at 1221 by HUONG SARMIENTO RT CORRECTION: INNER CANNULA, TRACH TIE AND GAUZE CHANGED BY RT AND RN. NO ADVERSE REACTIONS, NO RESP DISTRESS NOTED.
[2018-11-22] MEDS: GLUCERNA 1.2 1,000 ML BOTTLE GT PRN (13:51)
[2018-11-22] MEDS: ACETAMINOPHEN 650 MG/20 ML UDC- SA PATIENTS-PAIN ONLY GT PRN (20:12)
[2018-11-22 20:36] VITALS: BP 131/79
[2018-11-22] MEDS: ASCORBIC ACID 500 MG TABLET GT SCH (21:00)
[2018-11-22] MEDS: INSULIN REGULAR, HUMAN 100 UNIT/ML 3 ML VIAL SQ PRN (22:54)
[2018-11-23] MEDS: ALBUTEROL FS 2.5 MG/3 ML VIAL.NEB NEB SCH ×4 (01:39→19:52)
[2018-11-23] MEDS: METOCLOPRAMIDE HCL 10 MG/10 ML UDC GT SCH ×3 (04:42→20:44)
[2018-11-23] MEDS: GABAPENTIN 300 MG CAPSULE GT SCH ×3 (04:42→20:44)
[2018-11-23] MEDS: GLUCERNA 1.2 1,000 ML BOTTLE GT PRN ×2 (04:43→19:25)
[2018-11-23] MEDS: DEXILANT 30 MG GT SCH (05:17)
[2018-11-23] MEDS: BLOOD SUGAR DIAGNOSTIC 1 EACH STRIP IN SCH ×2 (05:19→17:47)
[2018-11-23] MEDS: INSULIN REGULAR, HUMAN 100 UNIT/ML 3 ML VIAL SQ PRN ×2 (05:35→17:48)
[2018-11-23 07:30] VITALS: BP 123/65
--- NOTE | 2018-11-23 07:41 | NUR ---
RT PT RCVD TRACH'D ON MECHANICAL VENT WITH SETTINGS PER MD ORDER. DIGITAL PROJECT COORDINATOR DONE. VENT PLUGGED INTO RED OUTLET. SPARE TRACH AND AMBU BAG AT HEAD OF BED. BREATHING TX GIVEN ORDERED, NO ADVERSE REACTIONS OBSERVED. SUCTIONED SMALL AMOUNTS OF PALE YELLOW SECRETIONS. ALARMS ON AND AUDIBLE. WILL CONTINUE TO MONITOR THE PATIENT FOR ANY CHANGE OF CONDITION. Addendum: 11/23/18 at 0924 by YAMIL MARTINEZ RT Amended: Links added.
[2018-11-23] MEDS: CALCIUM CARBONATE 500 MG TAB.CHEW GT SCH ×2 (08:44→16:14)
[2018-11-23] MEDS: SIMETHICONE SUSP 40 MG/0.6 ML BOTTLE GT SCH ×2 (08:44→20:44)
[2018-11-23] MEDS: FERROUS SULFATE - FOR SA ONLY 330 MG/7.5 ML UDC GT SCH ×2 (08:44→16:14)
[2018-11-23] MEDS: LEVETIRACETAM SOL (5 ML) 100 MG/ML UDC GT SCH ×2 (08:44→20:44)
[2018-11-23] MEDS: [UNRECOGNIZED DRUG - OTHER] TP SCH ×2 (08:44→20:44)
[2018-11-23] MEDS: TRIAMCINOLONE ACETONIDE 0.1% CR 15 GM TUBE TP SCH ×2 (08:44→20:44)
[2018-11-23] MEDS: TRILEPTAL GT SCH ×2 (08:44→20:44)
[2018-11-23] MEDS: VIT A TP SCH ×2 (08:44→20:44)
[2018-11-23] MEDS: CLOTRIMAZOLE 1% 15 GM TUBE TP SCH ×2 (08:44→20:45)
[2018-11-23] MEDS: ACIDOPHILUS/BULGARICUS 1 EACH TAB.CHEW GT SCH ×2 (08:44→16:14)
[2018-11-23] MEDS: PROSOURCE DIETARY LIQUID 30 ML LIQUID GT SCH ×2 (08:44→16:14)
[2018-11-23] MEDS: DOCUSATE SODIUM LIQ 100 MG/10 ML UDC GT SCH (08:44)
[2018-11-23] MEDS: HYDROGEN PEROXIDE 480 ML BOTTLE TP SCH ×2 (08:44→20:45)
[2018-11-23] MEDS: MULTIVIT W/MINERALS 1 TAB TABLET GT SCH (08:44)
[2018-11-23] MEDS: Z GUARD REMEDY 4 OZ OINT TP SCH ×2 (08:44→20:45)
--- NOTE | 2018-11-23 09:40 | NUR ---
Seen and examined by Dr. Felix, stock broker. NNO given at this time.
[2018-11-23 20:36] VITALS: BP 138/65
[2018-11-23] MEDS: ASCORBIC ACID 500 MG TABLET GT SCH (20:44)
--- NOTE | 2018-11-23 23:52 | NUR ---
RT NOTE PT RCVD TRACH'D ON MECHANICAL VENT WITH CHARTED SETTINGS. TX APRIL WELL. SX DONE. PT TRACH IS PATENT AND SECURE. VENT IS PLUGGED INTO RED OUTLET. ALARMS ARE ON AND AUDIBLE. AMBU BAG AT BEDSIDE. WILL CONTINUE TO MONITOR. Addendum: 11/23/18 at 2353 by MICH AVILA RT Amended: Links added.
[2018-11-24] MEDS: ALBUTEROL FS 2.5 MG/3 ML VIAL.NEB NEB SCH ×4 (01:11→19:30)
[2018-11-24] MEDS: DEXILANT 30 MG GT SCH (05:22)
[2018-11-24] MEDS: METOCLOPRAMIDE HCL 10 MG/10 ML UDC GT SCH ×3 (05:22→20:54)
[2018-11-24] MEDS: GABAPENTIN 300 MG CAPSULE GT SCH ×3 (05:22→20:54)
[2018-11-24] MEDS: BLOOD SUGAR DIAGNOSTIC 1 EACH STRIP IN SCH ×2 (05:47→17:44)
[2018-11-24] MEDS: INSULIN REGULAR, HUMAN 100 UNIT/ML 3 ML VIAL SQ PRN ×2 (05:48→17:59)
[2018-11-24 07:44] VITALS: BP 121/71
[2018-11-24] MEDS: DOCUSATE SODIUM LIQ 100 MG/10 ML UDC GT SCH (08:22)
[2018-11-24] MEDS: LEVETIRACETAM SOL (5 ML) 100 MG/ML UDC GT SCH ×2 (08:22→20:54)
[2018-11-24] MEDS: FERROUS SULFATE - FOR SA ONLY 330 MG/7.5 ML UDC GT SCH ×2 (08:22→17:44)
[2018-11-24] MEDS: SIMETHICONE SUSP 40 MG/0.6 ML BOTTLE GT SCH ×2 (08:23→20:54)
[2018-11-24] MEDS: MULTIVIT W/MINERALS 1 TAB TABLET GT SCH (08:24)
[2018-11-24] MEDS: ACIDOPHILUS/BULGARICUS 1 EACH TAB.CHEW GT SCH ×2 (08:24→17:44)
[2018-11-24] MEDS: TRILEPTAL GT SCH ×2 (08:24→20:54)
[2018-11-24] MEDS: CALCIUM CARBONATE 500 MG TAB.CHEW GT SCH ×2 (08:24→17:44)
[2018-11-24] MEDS: PROSOURCE DIETARY LIQUID 30 ML LIQUID GT SCH ×2 (08:24→17:44)
[2018-11-24] MEDS: Z GUARD REMEDY 4 OZ OINT TP SCH ×2 (09:00→20:54)
[2018-11-24] MEDS: [UNRECOGNIZED DRUG - OTHER] TP SCH ×2 (09:00→20:54)
[2018-11-24] MEDS: VIT A TP SCH ×2 (09:00→20:54)
[2018-11-24] MEDS: TRIAMCINOLONE ACETONIDE 0.1% CR 15 GM TUBE TP SCH ×2 (09:00→20:54)
[2018-11-24] MEDS: CLOTRIMAZOLE 1% 15 GM TUBE TP SCH ×2 (09:00→20:54)
--- NOTE | 2018-11-24 15:32 | NUR ---
Seen and examined by Dr. Luis, assessed patient's toes for any signs of infection. No signs of infection noted at this time. NNO given.
[2018-11-24] MEDS: GLUCERNA 1.2 1,000 ML BOTTLE GT PRN (17:44)
[2018-11-24 20:26] VITALS: BP 117/71
[2018-11-24] MEDS: ASCORBIC ACID 500 MG TABLET GT SCH (20:54)
--- NOTE | 2018-11-24 21:49 | NUR ---
RT NOTE PT RCVD TRACH'D ON MECHANICAL VENT WITH CHARTED SETTINGS. TX APRIL WELL. SX DONE. PT TRACH IS PATENT AND SECURE. VENT IS PLUGGED INTO RED OUTLET. ALARMS ARE ON AND AUDIBLE. AMBU BAG AT BEDSIDE. WILL CONTINUE TO MONITOR. Addendum: 11/24/18 at 2149 by MICH AVILA RT Amended: Links added.
[2018-11-24] MEDS: HYDROGEN PEROXIDE 480 ML BOTTLE TP SCH (22:05)
[2018-11-25] MEDS: ALBUTEROL FS 2.5 MG/3 ML VIAL.NEB NEB SCH ×4 (00:36→19:58)
[2018-11-25] MEDS: METOCLOPRAMIDE HCL 10 MG/10 ML UDC GT SCH ×3 (05:14→21:38)
[2018-11-25] MEDS: GABAPENTIN 300 MG CAPSULE GT SCH ×3 (05:14→21:38)
[2018-11-25] MEDS: DEXILANT 30 MG GT SCH (05:14)
[2018-11-25] MEDS: BLOOD SUGAR DIAGNOSTIC 1 EACH STRIP IN SCH ×2 (05:46→17:07)
[2018-11-25] MEDS: INSULIN REGULAR, HUMAN 100 UNIT/ML 3 ML VIAL SQ PRN ×2 (05:47→17:07)
[2018-11-25 07:52] VITALS: BP 110/64
[2018-11-25] MEDS: SIMETHICONE SUSP 40 MG/0.6 ML BOTTLE GT SCH ×2 (08:10→20:00)
[2018-11-25] MEDS: DOCUSATE SODIUM LIQ 100 MG/10 ML UDC GT SCH (09:04)
[2018-11-25] MEDS: LEVETIRACETAM SOL (5 ML) 100 MG/ML UDC GT SCH ×2 (09:04→21:38)
[2018-11-25] MEDS: FERROUS SULFATE - FOR SA ONLY 330 MG/7.5 ML UDC GT SCH ×2 (09:04→16:51)
[2018-11-25] MEDS: TRILEPTAL GT SCH ×2 (09:05→21:38)
[2018-11-25] MEDS: ACIDOPHILUS/BULGARICUS 1 EACH TAB.CHEW GT SCH ×2 (09:05→16:51)
[2018-11-25] MEDS: MULTIVIT W/MINERALS 1 TAB TABLET GT SCH (09:05)
[2018-11-25] MEDS: PROSOURCE DIETARY LIQUID 30 ML LIQUID GT SCH ×2 (09:05→16:51)
[2018-11-25] MEDS: VIT A TP SCH ×2 (09:06→21:38)
[2018-11-25] MEDS: CALCIUM CARBONATE 500 MG TAB.CHEW GT SCH ×2 (09:06→16:51)
[2018-11-25] MEDS: Z GUARD REMEDY 4 OZ OINT TP SCH ×2 (09:06→21:39)
[2018-11-25] MEDS: CLOTRIMAZOLE 1% 15 GM TUBE TP SCH ×2 (09:06→21:39)
[2018-11-25] MEDS: [UNRECOGNIZED DRUG - OTHER] TP SCH ×2 (09:06→21:38)
[2018-11-25] MEDS: TRIAMCINOLONE ACETONIDE 0.1% CR 15 GM TUBE TP SCH ×2 (09:06→21:38)
[2018-11-25] MEDS: HYDROGEN PEROXIDE 480 ML BOTTLE TP SCH ×2 (09:49→21:38)
[2018-11-25] MEDS: GLUCERNA 1.2 1,000 ML BOTTLE GT PRN (16:47)
--- NOTE | 2018-11-25 18:00 | NUR ---
Assessed patient toes, no sores noted at this time. Patient still on contact isolation, all precautions observed.
--- NOTE | 2018-11-25 19:30 | NUR ---
Seen and examined by Anna Vargas NP nno.
[2018-11-25 21:26] VITALS: BP 124/75
[2018-11-25] MEDS: ASCORBIC ACID 500 MG TABLET GT SCH (21:38)
[2018-11-26] MEDS: ALBUTEROL FS 2.5 MG/3 ML VIAL.NEB NEB SCH ×4 (01:32→19:26)
[2018-11-26] MEDS: GABAPENTIN 300 MG CAPSULE GT SCH ×3 (04:33→20:49)
[2018-11-26] MEDS: METOCLOPRAMIDE HCL 10 MG/10 ML UDC GT SCH ×3 (04:33→20:49)
[2018-11-26] MEDS: DEXILANT 30 MG GT SCH (05:04)
[2018-11-26] MEDS: MAGNESIUM HYDROXIDE 30 ML UDC GT PRN (05:05)
[2018-11-26] MEDS: INSULIN REGULAR, HUMAN 100 UNIT/ML 3 ML VIAL SQ PRN ×2 (05:58→17:29)
[2018-11-26] MEDS: BLOOD SUGAR DIAGNOSTIC 1 EACH STRIP IN SCH ×2 (05:58→17:37)
[2018-11-26 07:36] VITALS: BP 128/66
[2018-11-26] MEDS: SIMETHICONE SUSP 40 MG/0.6 ML BOTTLE GT SCH ×2 (08:00→20:49)
[2018-11-26] MEDS: DOCUSATE SODIUM LIQ 100 MG/10 ML UDC GT SCH (08:04)
[2018-11-26] MEDS: FERROUS SULFATE - FOR SA ONLY 330 MG/7.5 ML UDC GT SCH ×2 (08:04→16:11)
[2018-11-26] MEDS: LEVETIRACETAM SOL (5 ML) 100 MG/ML UDC GT SCH ×2 (08:04→20:49)
[2018-11-26] MEDS: ACIDOPHILUS/BULGARICUS 1 EACH TAB.CHEW GT SCH ×2 (08:07→16:13)
[2018-11-26] MEDS: PROSOURCE DIETARY LIQUID 30 ML LIQUID GT SCH ×2 (08:07→16:11)
[2018-11-26] MEDS: TRILEPTAL GT SCH ×2 (08:19→20:49)
[2018-11-26] MEDS: MULTIVIT W/MINERALS 1 TAB TABLET GT SCH (08:21)
[2018-11-26] MEDS: CALCIUM CARBONATE 500 MG TAB.CHEW GT SCH ×2 (08:21→16:11)
[2018-11-26] MEDS: HYDROGEN PEROXIDE 480 ML BOTTLE TP SCH ×2 (08:22→21:00)
[2018-11-26] MEDS: VIT A TP SCH ×2 (08:22→20:49)
[2018-11-26] MEDS: TRIAMCINOLONE ACETONIDE 0.1% CR 15 GM TUBE TP SCH (08:22)
[2018-11-26] MEDS: [UNRECOGNIZED DRUG - OTHER] TP SCH ×2 (08:22→20:49)
[2018-11-26] MEDS: Z GUARD REMEDY 4 OZ OINT TP SCH ×2 (08:23→20:49)
[2018-11-26] MEDS: CLOTRIMAZOLE 1% 15 GM TUBE TP SCH ×2 (08:23→20:49)
--- NOTE | 2018-11-26 10:31 | NUR ---
Seen by Dr. Naik, pump erector helper and assessed toes for any signs of infection, no s/s of infection noted. Resident was referred to Dr. Naik per family's request. Patient's sister Beckie informed nursing home assistant of her request, administration notified by nursing home assistant.
--- NOTE | 2018-11-26 11:16 | NUR ---
Resident's sister came and informed her that per her request patient was seen by another biomedical service engineer. She said that her concern was that when she came the last time, she noted that her toe nails has some grayish stuff under the toes, but when she saw her yesterday it is no longer there, "someone must have cleaned it". Informed patient's sister that Dr. aNik assessed patient's toenails, no s/s of infection. Dr. Naik said he will come back next week to cut her toe nails. Beckie appreciated the information.
--- NOTE | 2018-11-26 14:36 | NUR ---
INTERDISCIPLINARY PLAN OF CARE CONFERENCE was held today. Resident's sister Beckie Chu attended today's IDT meeting. Dr. Felix and the interdisciplinary team discussed the current plan of care in detail. Current orders as well as treatments and medications were reviewed. Patient was seen by wound job service consultant and healed sacral wound. 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 Resident asymptomatic. Resident's daughter has few things that she asked but was addressed already. One of her concern is foot care and corn cutter, secondly isolation status which will be addressed by geriatric nursing assistant to infectious disease team on Thursday. Resident's sister claimed that patient has only been up 3-4 times since she came. Patient is being up on a regular basis and taken to activity room when she was not on isolation. Endorsed to get patient up in gerichair and leave her in the room while on isolation. Informed resident's sister that according to Dr. Naik, he wants the therapist to evaluate if patient will benefit from boots or orthotic device in her feet for contracture management. PT aware. Resident's sister also informed that since patient is on isolation, she is not taken to shower room for her scheduled shower but instead given a full bed bath in the room. Verbalized understanding.
--- NOTE | 2018-11-26 19:26 | NUR ---
RECEIVED TRACH SHILEY 8 XLT PT ON [facility] VENT WITH NOTED SETTINGS. PT IS AWAKE AND RESPONDS TO STIMULI WHEN SUCTION. TRACH IS PATENT AND SECURED. ENVIRONMENTAL ASSOCIATE DONE. Q6 BREATHING TX GIVEN WITH NO ADVERSE REACTION NOTED. SX DONE PRN. VENT PLUGGED INTO RED OUTLET. ALARMS ON AND AUDIBLE. AMBU BAG @ BEDSIDE. NO RESP DISTRESS AT THIS TIME. WILL CONT TO MONITOR PT.
[2018-11-26 19:51] VITALS: BP 148/85
[2018-11-26] MEDS: ASCORBIC ACID 500 MG TABLET GT SCH (20:49)
[2018-11-27] MEDS: ALBUTEROL FS 2.5 MG/3 ML VIAL.NEB NEB SCH ×4 (00:55→19:39)
[2018-11-27] MEDS: METOCLOPRAMIDE HCL 10 MG/10 ML UDC GT SCH ×3 (05:26→20:25)
[2018-11-27] MEDS: DEXILANT 30 MG GT SCH (05:26)
[2018-11-27] MEDS: GABAPENTIN 300 MG CAPSULE GT SCH ×3 (05:26→20:25)
[2018-11-27] MEDS: GLUCERNA 1.2 1,000 ML BOTTLE GT PRN (05:52)
[2018-11-27] MEDS: BLOOD SUGAR DIAGNOSTIC 1 EACH STRIP IN SCH ×2 (06:12→17:03)
[2018-11-27] MEDS: INSULIN REGULAR, HUMAN 100 UNIT/ML 3 ML VIAL SQ PRN ×2 (06:13→17:05)
[2018-11-27] MEDS: SIMETHICONE SUSP 40 MG/0.6 ML BOTTLE GT SCH ×2 (08:00→20:25)
[2018-11-27 08:01] VITALS: BP 124/77
[2018-11-27] MEDS: Z GUARD REMEDY 4 OZ OINT TP SCH ×2 (09:00→20:26)
[2018-11-27] MEDS: CLOTRIMAZOLE 1% 15 GM TUBE TP SCH ×2 (09:00→20:25)
[2018-11-27] MEDS: HYDROGEN PEROXIDE 480 ML BOTTLE TP SCH ×2 (09:00→20:25)
[2018-11-27] MEDS: VIT A TP SCH ×2 (09:00→20:25)
[2018-11-27] MEDS: [UNRECOGNIZED DRUG - OTHER] TP SCH ×2 (09:00→20:25)
[2018-11-27] MEDS: CALCIUM CARBONATE 500 MG TAB.CHEW GT SCH ×2 (09:00→16:50)
[2018-11-27] MEDS: ACIDOPHILUS/BULGARICUS 1 EACH TAB.CHEW GT SCH ×2 (09:57→16:50)
[2018-11-27] MEDS: TRILEPTAL GT SCH ×2 (09:57→20:25)
[2018-11-27] MEDS: DOCUSATE SODIUM LIQ 100 MG/10 ML UDC GT SCH (09:57)
[2018-11-27] MEDS: MULTIVIT W/MINERALS 1 TAB TABLET GT SCH (09:57)
[2018-11-27] MEDS: PROSOURCE DIETARY LIQUID 30 ML LIQUID GT SCH ×2 (09:57→16:50)
[2018-11-27] MEDS: FERROUS SULFATE - FOR SA ONLY 330 MG/7.5 ML UDC GT SCH ×2 (09:57→16:50)
[2018-11-27] MEDS: LEVETIRACETAM SOL (5 ML) 100 MG/ML UDC GT SCH ×2 (09:57→20:25)
[2018-11-27] MEDS: ASCORBIC ACID 500 MG TABLET GT SCH (20:25)
[2018-11-28] MEDS: ALBUTEROL FS 2.5 MG/3 ML VIAL.NEB NEB SCH ×4 (01:16→19:14)
--- NOTE | 2018-11-28 03:20 | NUR ---
RT NOTES TRACH TUBE IN PLACE, PATENT, AND SECURED WITH TRACH TIE. ALARMS ON AND AUDIBLE. VENT PLUGGED IN TO RED OUTLET. AMBU BAG AND BACK UP TRACH BY THE BEDSIDE. TRACH CARE PERFORMED. STOMA CLEANED AND REPLACED INNER CANNULA. SO SIGNS OF ANY SOB. PT STABLE. Addendum: 11/28/18 at 0323 by ADRIÁN THOMAS RT Amended: Links added.
[2018-11-28] MEDS: METOCLOPRAMIDE HCL 10 MG/10 ML UDC GT SCH ×3 (05:31→20:31)
[2018-11-28] MEDS: BLOOD SUGAR DIAGNOSTIC 1 EACH STRIP IN SCH ×2 (05:31→18:21)
[2018-11-28] MEDS: MAGNESIUM HYDROXIDE 30 ML UDC GT PRN (05:31)
[2018-11-28] MEDS: GLUCERNA 1.2 1,000 ML BOTTLE GT PRN ×2 (05:31→18:26)
[2018-11-28] MEDS: DEXILANT 30 MG GT SCH (05:31)
[2018-11-28] MEDS: GABAPENTIN 300 MG CAPSULE GT SCH ×3 (05:31→20:31)
[2018-11-28] MEDS: INSULIN REGULAR, HUMAN 100 UNIT/ML 3 ML VIAL SQ PRN ×2 (05:32→18:22)
[2018-11-28 07:31] VITALS: BP 115/67
[2018-11-28] MEDS: SIMETHICONE SUSP 40 MG/0.6 ML BOTTLE GT SCH ×2 (08:00→20:31)
[2018-11-28] MEDS: HYDROGEN PEROXIDE 480 ML BOTTLE TP SCH ×2 (09:00→20:31)
[2018-11-28] MEDS: CLOTRIMAZOLE 1% 15 GM TUBE TP SCH ×2 (09:00→20:31)
[2018-11-28] MEDS: Z GUARD REMEDY 4 OZ OINT TP SCH ×2 (09:00→20:31)
[2018-11-28] MEDS: VIT A TP SCH ×2 (09:00→20:31)
[2018-11-28] MEDS: [UNRECOGNIZED DRUG - OTHER] TP SCH ×2 (09:00→20:31)
[2018-11-28] MEDS: DOCUSATE SODIUM LIQ 100 MG/10 ML UDC GT SCH (09:28)
[2018-11-28] MEDS: ACIDOPHILUS/BULGARICUS 1 EACH TAB.CHEW GT SCH ×2 (09:29→16:37)
[2018-11-28] MEDS: FERROUS SULFATE - FOR SA ONLY 330 MG/7.5 ML UDC GT SCH ×2 (09:29→16:37)
[2018-11-28] MEDS: LEVETIRACETAM SOL (5 ML) 100 MG/ML UDC GT SCH ×2 (09:29→20:31)
[2018-11-28] MEDS: PROSOURCE DIETARY LIQUID 30 ML LIQUID GT SCH ×2 (09:30→16:39)
[2018-11-28] MEDS: TRILEPTAL GT SCH ×2 (09:30→20:31)
[2018-11-28] MEDS: CALCIUM CARBONATE 500 MG TAB.CHEW GT SCH ×2 (09:30→16:39)
[2018-11-28] MEDS: MULTIVIT W/MINERALS 1 TAB TABLET GT SCH (09:37)
[2018-11-28] MEDS: ASCORBIC ACID 500 MG TABLET GT SCH (20:31)
[2018-11-28 20:42] VITALS: BP 142/70
[2018-11-29] MEDS: ALBUTEROL FS 2.5 MG/3 ML VIAL.NEB NEB SCH ×4 (01:20→19:20)
[2018-11-29] MEDS: METOCLOPRAMIDE HCL 10 MG/10 ML UDC GT SCH ×3 (05:00→20:21)
[2018-11-29] MEDS: GABAPENTIN 300 MG CAPSULE GT SCH ×3 (05:00→20:21)
[2018-11-29] MEDS: DEXILANT 30 MG GT SCH (06:12)
[2018-11-29] MEDS: BLOOD SUGAR DIAGNOSTIC 1 EACH STRIP IN SCH ×2 (06:12→17:38)
[2018-11-29] MEDS: INSULIN REGULAR, HUMAN 100 UNIT/ML 3 ML VIAL SQ PRN ×2 (06:13→17:39)
[2018-11-29 07:56] VITALS: BP 119/61
[2018-11-29] MEDS: SIMETHICONE SUSP 40 MG/0.6 ML BOTTLE GT SCH ×2 (08:05→20:21)
[2018-11-29] MEDS: ACIDOPHILUS/BULGARICUS 1 EACH TAB.CHEW GT SCH ×2 (08:05→17:26)
[2018-11-29] MEDS: CALCIUM CARBONATE 500 MG TAB.CHEW GT SCH ×2 (08:05→17:26)
[2018-11-29] MEDS: MULTIVIT W/MINERALS 1 TAB TABLET GT SCH (08:05)
[2018-11-29] MEDS: FERROUS SULFATE - FOR SA ONLY 330 MG/7.5 ML UDC GT SCH ×2 (08:05→17:26)
[2018-11-29] MEDS: PROSOURCE DIETARY LIQUID 30 ML LIQUID GT SCH ×2 (08:05→17:26)
[2018-11-29] MEDS: DOCUSATE SODIUM LIQ 100 MG/10 ML UDC GT SCH (08:05)
[2018-11-29] MEDS: LEVETIRACETAM SOL (5 ML) 100 MG/ML UDC GT SCH ×2 (08:05→20:21)
[2018-11-29] MEDS: TRILEPTAL GT SCH ×2 (08:05→20:21)
[2018-11-29] MEDS: VIT A TP SCH ×2 (09:00→20:21)
[2018-11-29] MEDS: HYDROGEN PEROXIDE 480 ML BOTTLE TP SCH ×2 (09:00→20:21)
[2018-11-29] MEDS: Z GUARD REMEDY 4 OZ OINT TP SCH ×2 (09:00→20:22)
[2018-11-29] MEDS: CLOTRIMAZOLE 1% 15 GM TUBE TP SCH ×2 (09:00→20:21)
[2018-11-29] MEDS: [UNRECOGNIZED DRUG - OTHER] TP SCH ×2 (09:00→20:21)
[2018-11-29] MEDS: GLUCERNA 1.2 1,000 ML BOTTLE GT PRN (17:40)
[2018-11-29] MEDS: ASCORBIC ACID 500 MG TABLET GT SCH (20:21)
[2018-11-29 20:47] VITALS: BP 132/78
[2018-11-30] MEDS: ALBUTEROL FS 2.5 MG/3 ML VIAL.NEB NEB SCH ×4 (01:32→19:30)
[2018-11-30] MEDS: DEXILANT 30 MG GT SCH (05:07)
[2018-11-30] MEDS: METOCLOPRAMIDE HCL 10 MG/10 ML UDC GT SCH ×3 (05:07→20:08)
[2018-11-30] MEDS: GABAPENTIN 300 MG CAPSULE GT SCH ×3 (05:07→20:08)
[2018-11-30] MEDS: INSULIN REGULAR, HUMAN 100 UNIT/ML 3 ML VIAL SQ PRN ×2 (06:17→17:51)
[2018-11-30] MEDS: BLOOD SUGAR DIAGNOSTIC 1 EACH STRIP IN SCH ×2 (06:17→17:50)
[2018-11-30 08:29] VITALS: BP 132/70
[2018-11-30] MEDS: SIMETHICONE SUSP 40 MG/0.6 ML BOTTLE GT SCH ×2 (08:30→20:08)
[2018-11-30] MEDS: HYDROGEN PEROXIDE 480 ML BOTTLE TP SCH ×2 (09:00→20:09)
[2018-11-30] MEDS: ACIDOPHILUS/BULGARICUS 1 EACH TAB.CHEW GT SCH ×2 (09:14→16:22)
[2018-11-30] MEDS: PROSOURCE DIETARY LIQUID 30 ML LIQUID GT SCH ×2 (09:14→16:22)
[2018-11-30] MEDS: FERROUS SULFATE - FOR SA ONLY 330 MG/7.5 ML UDC GT SCH ×2 (09:14→16:22)
[2018-11-30] MEDS: DOCUSATE SODIUM LIQ 100 MG/10 ML UDC GT SCH (09:14)
[2018-11-30] MEDS: VIT A TP SCH ×2 (09:14→20:08)
[2018-11-30] MEDS: [UNRECOGNIZED DRUG - OTHER] TP SCH ×2 (09:14→20:08)
[2018-11-30] MEDS: LEVETIRACETAM SOL (5 ML) 100 MG/ML UDC GT SCH ×2 (09:14→20:08)
[2018-11-30] MEDS: TRILEPTAL GT SCH ×2 (09:14→20:08)
[2018-11-30] MEDS: CALCIUM CARBONATE 500 MG TAB.CHEW GT SCH ×2 (09:14→16:22)
[2018-11-30] MEDS: MULTIVIT W/MINERALS 1 TAB TABLET GT SCH (09:14)
[2018-11-30] MEDS: CLOTRIMAZOLE 1% 15 GM TUBE TP SCH ×2 (09:15→20:09)
[2018-11-30] MEDS: Z GUARD REMEDY 4 OZ OINT TP SCH ×2 (09:15→20:09)
--- NOTE | 2018-11-30 18:35 | NUR ---
Pt was seen for PT screening today. Received order for soft AFO boots 5x/wk Thursday to Thursday up to 4 hours or as tolerated, with skin checks before and after use.
[2018-11-30] MEDS: ASCORBIC ACID 500 MG TABLET GT SCH (20:08)
[2018-11-30 20:30] VITALS: BP 135/72
[2018-12-01] MEDS: ALBUTEROL FS 2.5 MG/3 ML VIAL.NEB NEB SCH ×4 (01:43→19:50)
[2018-12-01] MEDS: GABAPENTIN 300 MG CAPSULE GT SCH ×3 (05:07→20:45)
[2018-12-01] MEDS: DEXILANT 30 MG GT SCH (05:07)
[2018-12-01] MEDS: METOCLOPRAMIDE HCL 10 MG/10 ML UDC GT SCH ×3 (05:07→20:45)
[2018-12-01] MEDS: BLOOD SUGAR DIAGNOSTIC 1 EACH STRIP IN SCH ×2 (06:25→18:09)
[2018-12-01] MEDS: INSULIN REGULAR, HUMAN 100 UNIT/ML 3 ML VIAL SQ PRN ×2 (06:26→18:15)
[2018-12-01 07:52] VITALS: BP 122/68
[2018-12-01] MEDS: SIMETHICONE SUSP 40 MG/0.6 ML BOTTLE GT SCH ×2 (08:00→20:33)
[2018-12-01] MEDS: LEVETIRACETAM SOL (5 ML) 100 MG/ML UDC GT SCH ×2 (09:15→20:37)
[2018-12-01] MEDS: ACIDOPHILUS/BULGARICUS 1 EACH TAB.CHEW GT SCH ×2 (09:15→17:00)
[2018-12-01] MEDS: FERROUS SULFATE - FOR SA ONLY 330 MG/7.5 ML UDC GT SCH ×2 (09:15→17:00)
[2018-12-01] MEDS: DOCUSATE SODIUM LIQ 100 MG/10 ML UDC GT SCH (09:15)
[2018-12-01] MEDS: TRILEPTAL GT SCH ×2 (09:15→20:41)
[2018-12-01] MEDS: CLOTRIMAZOLE 1% 15 GM TUBE TP SCH ×2 (09:16→20:48)
[2018-12-01] MEDS: VIT A TP SCH ×2 (09:16→20:48)
[2018-12-01] MEDS: [UNRECOGNIZED DRUG - OTHER] TP SCH ×2 (09:16→20:48)
[2018-12-01] MEDS: Z GUARD REMEDY 4 OZ OINT TP SCH ×2 (09:16→20:48)
[2018-12-01] MEDS: MULTIVIT W/MINERALS 1 TAB TABLET GT SCH (09:16)
[2018-12-01] MEDS: PROSOURCE DIETARY LIQUID 30 ML LIQUID GT SCH ×2 (09:16→17:00)
[2018-12-01] MEDS: CALCIUM CARBONATE 500 MG TAB.CHEW GT SCH ×2 (09:16→17:00)
[2018-12-01 19:56] VITALS: BP 132/72
--- NOTE | 2018-12-01 20:00 | NUR ---
SA RN NOTES RECEIVED ON BED,TRACH/VENT SETTINGS TOLERATED WELL.ISOLATION PRECAUTION FOR VRE URINE.GT FEEDING IN PROGRESS,TOLERATED WELL.NO N/V/DIARRHEA NOTED.HOB ELEVATED AT ALL TIMES FOR ASPIRATION PRECAUTION.RT AT BEDSIDE FOR BREATHING SCHEDULED.WILL CONTINUE TO MONITOR STATUS.
[2018-12-01] MEDS: ASCORBIC ACID 500 MG TABLET GT SCH (20:46)
--- NOTE | 2018-12-01 20:47 | NUR ---
RT NOTE PT REC'D TRACH'D ON MECHANICAL VENT WITH CHARTED SETTINGS. TX TOLERATED WELL. SX DONE. PT TRACH IS PATENT AND SECURE. VENT IS PLUGGED INTO RED OUTLET. ALARMS ARE ON AND AUDIBLE. AMBU BAG AT BEDSIDE. NO SOB NOTED AT THIS TIME. WILL CONTINUE TO MONITOR. Addendum: 12/01/18 at 2047 by MARCO FRANCOIS RT Amended: Links added.
[2018-12-01] MEDS: HYDROGEN PEROXIDE 480 ML BOTTLE TP SCH (21:00)
[2018-12-02] MEDS: ALBUTEROL FS 2.5 MG/3 ML VIAL.NEB NEB SCH ×4 (01:07→19:30)
[2018-12-02] MEDS: GABAPENTIN 300 MG CAPSULE GT SCH ×3 (05:09→20:27)
[2018-12-02] MEDS: METOCLOPRAMIDE HCL 10 MG/10 ML UDC GT SCH ×3 (05:09→20:27)
[2018-12-02] MEDS: DEXILANT 30 MG GT SCH (05:10)
[2018-12-02] MEDS: BLOOD SUGAR DIAGNOSTIC 1 EACH STRIP IN SCH ×2 (05:12→18:04)
[2018-12-02] MEDS: INSULIN REGULAR, HUMAN 100 UNIT/ML 3 ML VIAL SQ PRN ×2 (05:25→18:05)
[2018-12-02 07:39] VITALS: BP 125/70
[2018-12-02] MEDS: SIMETHICONE SUSP 40 MG/0.6 ML BOTTLE GT SCH ×2 (08:00→20:27)
[2018-12-02] MEDS: CALCIUM CARBONATE 500 MG TAB.CHEW GT SCH ×2 (09:00→17:00)
[2018-12-02] MEDS: TRILEPTAL GT SCH ×2 (09:00→20:27)
[2018-12-02] MEDS: ACIDOPHILUS/BULGARICUS 1 EACH TAB.CHEW GT SCH ×2 (09:00→17:00)
[2018-12-02] MEDS: [UNRECOGNIZED DRUG - OTHER] TP SCH ×2 (09:00→20:27)
[2018-12-02] MEDS: Z GUARD REMEDY 4 OZ OINT TP SCH ×2 (09:00→20:27)
[2018-12-02] MEDS: DOCUSATE SODIUM LIQ 100 MG/10 ML UDC GT SCH (09:00)
[2018-12-02] MEDS: CLOTRIMAZOLE 1% 15 GM TUBE TP SCH (09:00)
[2018-12-02] MEDS: VIT A TP SCH ×2 (09:00→20:27)
[2018-12-02] MEDS: PROSOURCE DIETARY LIQUID 30 ML LIQUID GT SCH ×2 (09:00→17:00)
[2018-12-02] MEDS: LEVETIRACETAM SOL (5 ML) 100 MG/ML UDC GT SCH ×2 (09:00→20:27)
[2018-12-02] MEDS: FERROUS SULFATE - FOR SA ONLY 330 MG/7.5 ML UDC GT SCH ×2 (09:00→17:00)
[2018-12-02] MEDS: MULTIVIT W/MINERALS 1 TAB TABLET GT SCH (09:00)
[2018-12-02] MEDS: GLUCERNA 1.2 1,000 ML BOTTLE GT PRN (10:16)
--- NOTE | 2018-12-02 13:00 | NUR ---
Referred contact isolation to [facility]. Pt asymptomatic, urine clear and no foul odor noted, T 98.2 F. [facility] ordered to DC isolation. Left message for Vice President Residential [employer] Sales Didi.
[2018-12-02 20:20] VITALS: BP 146/73
[2018-12-02] MEDS: HYDROGEN PEROXIDE 480 ML BOTTLE TP SCH (20:26)
[2018-12-02] MEDS: ASCORBIC ACID 500 MG TABLET GT SCH (20:27)
--- NOTE | 2018-12-02 21:27 | NUR ---
RT NOTE PT RCVD TRACH'D ON MECHANICAL VENT WITH CHARTED SETTINGS. TX APRIL WELL. SX DONE. PT TRACH IS PATENT AND SECURE. VENT IS PLUGGED INTO RED OUTLET. ALARMS ARE ON AND AUDIBLE. AMBU BAG AT BEDSIDE. WILL CONTINUE TO MONITOR. Addendum: 12/02/18 at 2128 by MICH AVILA RT Amended: Links added.
[2018-12-03] MEDS: ALBUTEROL FS 2.5 MG/3 ML VIAL.NEB NEB SCH ×4 (00:30→19:40)
[2018-12-03] MEDS: DEXILANT 30 MG GT SCH (05:45)
[2018-12-03] MEDS: GABAPENTIN 300 MG CAPSULE GT SCH ×3 (05:45→20:19)
[2018-12-03] MEDS: METOCLOPRAMIDE HCL 10 MG/10 ML UDC GT SCH ×3 (05:45→20:20)
[2018-12-03] MEDS: BLOOD SUGAR DIAGNOSTIC 1 EACH STRIP IN SCH ×2 (05:45→17:51)
[2018-12-03] MEDS: INSULIN REGULAR, HUMAN 100 UNIT/ML 3 ML VIAL SQ PRN ×2 (05:46→17:52)
[2018-12-03] MEDS: LORAZEPAM 1 MG TABLET GT PRN (06:03)
--- NOTE | 2018-12-03 06:03 | NUR ---
Pt noted with Sz activity lasted approx 45 seconds-Pt awake, noted left arm flung out, with eyes & lip twitching , no cyanosis - no s/sx of resp distress, sz precautions observed- PRN Ativan 1 mg via GT given as ordered- Health Program Specialist Nurse @ bs assessed. Closely monitored pt.
--- NOTE | 2018-12-03 06:19 | NUR ---
Post Sz V/s checked: Temp:98.5(Axillary) HR 97 02:100% BP:130/53 RR: 16- Pt noted sleeping @ this time, arrousable. notified by RN awaiting for response. Continue to monitor pt. No injury noted or sustained during sz activity- safety precautions observed- Sr's up x 4- padded.
--- NOTE | 2018-12-03 06:37 | NUR ---
RT NOTE LATE ENTRY. @0604 MATERIALS ASSISTANT CORY NOTIFIED RT. PT HAD SEIZURE ACTIVITIES. RT ASSESSED PT. NO RESPIRATORY DISTRESS NOTED AT THIS TIME.
[2018-12-03 08:00] VITALS: BP 115/65
[2018-12-03] MEDS: SIMETHICONE SUSP 40 MG/0.6 ML BOTTLE GT SCH ×2 (08:00→20:00)
--- NOTE | 2018-12-03 08:30 | NUR ---
Notified Dr. Felix patient had seizure episode early this morning. hourly shift manager CN left a message to Dr. Luis, he has not return the call yet. New order given for Chem 7, Ca, Phos and Magnesium level. Order carried out. Left a message to resident's sister informing her of seizure episode and new orders.
[2018-12-03] MEDS: HYDROGEN PEROXIDE 480 ML BOTTLE TP SCH ×2 (08:45→20:20)
[2018-12-03] MEDS: MULTIVIT W/MINERALS 1 TAB TABLET GT SCH (09:00)
[2018-12-03] MEDS: DOCUSATE SODIUM LIQ 100 MG/10 ML UDC GT SCH (09:00)
[2018-12-03] MEDS: ACIDOPHILUS/BULGARICUS 1 EACH TAB.CHEW GT SCH ×2 (09:00→16:33)
[2018-12-03] MEDS: VIT A TP SCH ×2 (09:00→20:20)
[2018-12-03] MEDS: TRILEPTAL GT SCH ×2 (09:00→20:20)
[2018-12-03] MEDS: LEVETIRACETAM SOL (5 ML) 100 MG/ML UDC GT SCH ×2 (09:00→20:19)
[2018-12-03] MEDS: Z GUARD REMEDY 4 OZ OINT TP SCH ×2 (09:00→20:20)
[2018-12-03] MEDS: CALCIUM CARBONATE 500 MG TAB.CHEW GT SCH ×2 (09:00→16:33)
[2018-12-03] MEDS: PROSOURCE DIETARY LIQUID 30 ML LIQUID GT SCH ×2 (09:00→16:33)
[2018-12-03] MEDS: FERROUS SULFATE - FOR SA ONLY 330 MG/7.5 ML UDC GT SCH ×2 (09:00→16:33)
[2018-12-03] MEDS: [UNRECOGNIZED DRUG - OTHER] TP SCH ×2 (09:00→20:20)
--- NOTE | 2018-12-03 10:00 | NUR ---
Dr. Naik licensed audiologist seen and cut patient's toenails. Gave an order to apply triple ATB QS to L great toe, JAVIER x 5 days. Order carried out.
[2018-12-03 10:13] LABS: CALCIUM, SERUM 9.6 mg/dL (8.5-10.1); PHOSPHORUS 4.8 mg/dL (2.5-4.9); POTASSIUM 4.3 mmol/L (3.5-5.1)
[2018-12-03 10:20] LABS: MAGNESIUM 4.2 mg/dL (1.8-2.4)
[2018-12-03] MEDS: GLUCERNA 1.2 1,000 ML BOTTLE GT PRN (10:27)
--- NOTE | 2018-12-03 12:15 | NUR ---
Dr. Felix notified of Chem 7 result with BUN of 80, Creat 3.0 and Mag 4.2, new order given to repeat Chem 7 and Magnesium on 12/05 and IVF NS at 80cc/hr. Resident awake, no further seizure episode. Patient's monthly menstrual period started today. Good taj care provided.
[2018-12-03] MEDS: NEOMY SULF/BACITRAC ZN/POLY 15 GM TUBE TP SCH ×2 (12:42→20:20)
[2018-12-03] MEDS: IV NS 0.9% 1,000 ML IV PRN (16:06)
--- NOTE | 2018-12-03 16:39 | NUR ---
Left a message to resident's sister Beckie of Chem 7 result with elevated BUN, Creatinine and Magnesium level. Patient currently on IVF with follow-up lab on 12/05/18. Patient's monthly period started today.
--- NOTE | 2018-12-03 19:40 | NUR ---
RECEIVED TRACH SHILEY 8 XLT PT ON [facility] VENT WITH NOTED SETTINGS. PT IS AWAKE AND RESPONDS TO STIMULI WHEN SUCTION. TRACH IS PATENT AND SECURED. INTERNAL AUDITOR DONE. Q6 BREATHING TX GIVEN WITH NO ADVERSE REACTION NOTED. SUCTIONED COPIOUS AMOUNT OF YELLOW THICK SECRETIONS. VENT PLUGGED INTO RED OUTLET. ALARMS ON AND AUDIBLE. AMBU BAG @ BEDSIDE. NO RESP DISTRESS AT THIS TIME. WILL CONT TO MONITOR PT.
[2018-12-03 20:08] VITALS: BP 130/74
[2018-12-03] MEDS: ASCORBIC ACID 500 MG TABLET GT SCH (20:20)
[2018-12-04] MEDS: IV NS 0.9% 1,000 ML IV PRN ×2 (01:14→14:26)
[2018-12-04] MEDS: ALBUTEROL FS 2.5 MG/3 ML VIAL.NEB NEB SCH ×4 (01:20→19:15)
[2018-12-04] MEDS: GABAPENTIN 300 MG CAPSULE GT SCH ×3 (05:33→20:27)
[2018-12-04] MEDS: GLUCERNA 1.2 1,000 ML BOTTLE GT PRN ×2 (05:33→18:52)
[2018-12-04] MEDS: DEXILANT 30 MG GT SCH (05:33)
[2018-12-04] MEDS: INSULIN REGULAR, HUMAN 100 UNIT/ML 3 ML VIAL SQ PRN ×2 (05:33→18:01)
[2018-12-04] MEDS: METOCLOPRAMIDE HCL 10 MG/10 ML UDC GT SCH ×3 (05:33→20:27)
[2018-12-04] MEDS: BLOOD SUGAR DIAGNOSTIC 1 EACH STRIP IN SCH ×2 (05:33→18:02)
[2018-12-04 07:41] VITALS: BP 120/60
[2018-12-04] MEDS: DOCUSATE SODIUM LIQ 100 MG/10 ML UDC GT SCH (08:51)
[2018-12-04] MEDS: FERROUS SULFATE - FOR SA ONLY 330 MG/7.5 ML UDC GT SCH ×2 (08:51→17:46)
[2018-12-04] MEDS: SIMETHICONE SUSP 40 MG/0.6 ML BOTTLE GT SCH ×2 (08:51→20:27)
[2018-12-04] MEDS: TRILEPTAL GT SCH ×2 (08:52→20:27)
[2018-12-04] MEDS: LEVETIRACETAM SOL (5 ML) 100 MG/ML UDC GT SCH ×2 (08:52→20:27)
[2018-12-04] MEDS: ACIDOPHILUS/BULGARICUS 1 EACH TAB.CHEW GT SCH ×2 (08:52→17:46)
[2018-12-04] MEDS: PROSOURCE DIETARY LIQUID 30 ML LIQUID GT SCH ×2 (08:53→17:46)
[2018-12-04] MEDS: CALCIUM CARBONATE 500 MG TAB.CHEW GT SCH ×2 (08:53→17:48)
[2018-12-04] MEDS: MULTIVIT W/MINERALS 1 TAB TABLET GT SCH (08:53)
[2018-12-04] MEDS: [UNRECOGNIZED DRUG - OTHER] TP SCH ×2 (09:00→20:27)
[2018-12-04] MEDS: NEOMY SULF/BACITRAC ZN/POLY 15 GM TUBE TP SCH ×2 (09:00→20:27)
[2018-12-04] MEDS: VIT A TP SCH ×2 (09:00→20:27)
[2018-12-04] MEDS: HYDROGEN PEROXIDE 480 ML BOTTLE TP SCH ×2 (09:00→20:27)
[2018-12-04] MEDS: Z GUARD REMEDY 4 OZ OINT TP SCH ×2 (09:00→20:27)
--- NOTE | 2018-12-04 09:15 | NUR ---
Notified Dr. Luis that patient has productive, thick, yellow secretions. MD also informed that patient had seizure episode yesterday. BMP was taken showing elevated BUN (80), Creat (3.0), Mg. (4.2), with order to continue NS at 80 cc/hr. Repeat labs in AM.
--- NOTE | 2018-12-04 10:30 | NUR ---
Received a telephone call from resident's sister Beckie acknowledging that she received the message but does not fully understand the message. Further explained to Beckie the part of the message that she did not understand. Verbalized understanding and appreciated the update given. Informed Beckie that patient also noted to have productive secretions, thick and yellow. Dr. Luis was made aware but NNO given at this time. Afebrile at 98.2.
[2018-12-04 19:38] VITALS: BP 130/61
[2018-12-04] MEDS: ASCORBIC ACID 500 MG TABLET GT SCH (20:27)
[2018-12-05] VITALS (9 sets, daily range): BP systolic 121–131; BP diastolic 60–76
[2018-12-05] MEDS: ALBUTEROL FS 2.5 MG/3 ML VIAL.NEB NEB SCH ×4 (01:15→19:30)
[2018-12-05] MEDS: INSULIN REGULAR, HUMAN 100 UNIT/ML 3 ML VIAL SQ PRN ×2 (05:09→18:13)
[2018-12-05] MEDS: GABAPENTIN 300 MG CAPSULE GT SCH ×3 (05:09→20:13)
[2018-12-05] MEDS: BLOOD SUGAR DIAGNOSTIC 1 EACH STRIP IN SCH ×2 (05:09→18:13)
[2018-12-05] MEDS: DEXILANT 30 MG GT SCH (05:09)
[2018-12-05] MEDS: METOCLOPRAMIDE HCL 10 MG/10 ML UDC GT SCH ×3 (05:09→20:06)
[2018-12-05 06:23] LABS: BASOPHILS # (AUTO) 0.1 /CMM (0.0-0.2); BASOPHILS % (AUTO) 0.4 % (0.0-2.0); EOSINOPHILS % (AUTO) 4.1 % (0.0-6.0); LYMPHOCYTES # (AUTO) 2.9 /CMM (0.8-4.8); MEAN CORPUSCULAR HGB CONC 32 g/dl (31.0-36.0); MEAN CORPUSCULAR VOLUME 98 fL (82-100); MONOCYTES # (AUTO) 1.4 /CMM (0.1-1.30); MONOCYTES % (AUTO) 10.3 % (2.0-12.0); NEUTROPHILS # (AUTO) 8.9 /CMM (1.8-8.9); NEUTROPHILS % (AUTO) 64.2 % (43.0-81.0); PLATELET COUNT (AUTO) 297 /CMM (150-450); WHITE BLOOD COUNT (AUTO) 13.9 K/uL (4.3-11.0)
[2018-12-05 06:25] LABS: RED BLOOD CELL COUNT(AUTO) 1.96 MIL/uL (4.0-5.2)
[2018-12-05 06:27] LABS: HEMATOCRIT 19 % (33-45); HEMOGLOBIN 6.2 g/dL (11.5-14.8)
[2018-12-05 06:46] LABS: CALCIUM, SERUM 8.4 mg/dL (8.5-10.1); CREATININE 2.6 mg/dL (0.6-1.3); MAGNESIUM 3.7 mg/dL (1.8-2.4); POTASSIUM 3.8 mmol/L (3.5-5.1)
[2018-12-05 07:15] LABS: EOSINOPHILS % (MANUAL) 4 % (0-4); LYMPHOCYTES % (MANUAL) 18 % (16-48); MONOCYTES % (MANUAL) 6 % (0-11.0); NEUTROPHILS % (MANUAL) 72 (42-76)
[2018-12-05] MEDS: SIMETHICONE SUSP 40 MG/0.6 ML BOTTLE GT SCH ×2 (08:00→20:03)
--- NOTE | 2018-12-05 08:00 | NUR ---
Received order from Dr. Luis to transfuse 1 unit PRBC due to low hgb- 6.2 and to insert midline. Cross matching and blood typing ordered. care trainer ride assembly supervisor informed of midline insertion. Resident awake, no signs and symptom of resp. distress. Stable vital signs BP- 121/74, HR-80, RR-12, Temp. 98.1. On IV NS at 80 ml/hr for hydration. Will continue to monitor.
--- NOTE | 2018-12-05 09:00 | NUR ---
Spoke with resident's sister Beckie Chu. Informed about new order to transfuse 1 unit of PRBC due to low hgb- 6.2 and the need to insert midline. Discussed to her the risks and benefits of blood transfusion and midline insertion and she expressed understanding. Gave consent to said procedures.
[2018-12-05] MEDS: HYDROGEN PEROXIDE 480 ML BOTTLE TP SCH ×2 (09:02→21:00)
[2018-12-05] MEDS: LEVETIRACETAM SOL (5 ML) 100 MG/ML UDC GT SCH ×2 (09:57→20:04)
[2018-12-05] MEDS: [UNRECOGNIZED DRUG - OTHER] TP SCH ×2 (09:57→21:00)
[2018-12-05] MEDS: NEOMY SULF/BACITRAC ZN/POLY 15 GM TUBE TP SCH ×2 (09:57→21:00)
[2018-12-05] MEDS: FERROUS SULFATE - FOR SA ONLY 330 MG/7.5 ML UDC GT SCH ×2 (09:57→17:00)
[2018-12-05] MEDS: TRILEPTAL GT SCH ×2 (09:57→20:12)
[2018-12-05] MEDS: CALCIUM CARBONATE 500 MG TAB.CHEW GT SCH ×2 (09:57→17:00)
[2018-12-05] MEDS: VIT A TP SCH ×2 (09:57→21:00)
[2018-12-05] MEDS: DOCUSATE SODIUM LIQ 100 MG/10 ML UDC GT SCH (09:57)
[2018-12-05] MEDS: PROSOURCE DIETARY LIQUID 30 ML LIQUID GT SCH ×2 (09:57→17:00)
[2018-12-05] MEDS: ACIDOPHILUS/BULGARICUS 1 EACH TAB.CHEW GT SCH ×2 (09:57→17:00)
[2018-12-05] MEDS: Z GUARD REMEDY 4 OZ OINT TP SCH ×2 (09:58→21:00)
[2018-12-05] MEDS: MULTIVIT W/MINERALS 1 TAB TABLET GT SCH (09:58)
--- NOTE | 2018-12-05 10:17 | NUR ---
Relayed BMP result to Dr. Luis, no new order given.
--- NOTE | 2018-12-05 12:00 | NUR ---
Midline inserted on right upper arm basilic vein G-18 with very good blood return, secured. Tolerated well. No bleeding noted. Will continue to monitor.
--- NOTE | 2018-12-05 13:00 | NUR ---
Seen and examined by Dr. Luis with new order to continue with IV hydration. Pls. refer to Dr. Ho, OB-TRACTOR MECHANIC APPRENTICE d/t uterine mass/fibroid. Pls. refer to Dr. Malave for neuro consult.
--- NOTE | 2018-12-05 13:35 | NUR ---
Blood transfusion started 1 unit PRBC. Bag checked and verified with RN from ICU. Stable vital signs BP- 130/60, HR- 95, RR-16, temp. 98.6. 1350; BP- 131/76, HR- 90, RR-16, Temp. 97.7F. No s/s of resp. distress. Will continue to monitor.
--- NOTE | 2018-12-05 17:32 | NUR ---
Blood transfusion completed, tolerated well. No adverse reaction noted. Sister at bedside the whole time of transfusion. BP- 129/63, OR-89, RR-16, temp. 98.8F. Will continue to monitor.
--- NOTE | 2018-12-05 19:30 | NUR ---
RT PT RECEIVED TRACHED ON [facility] VENT ON CHARTED SETTINGS. NO RESP DISTRESS NOTED. AIRWAY PATENT AND SECURED. PT SUCTIONED. MTL DONE. HHN TX GIVEN. ALARMS ARE SET AND AUDIBLE. AMBUBAG AND BACK UP TRACH PRESENT. VENT CONNECTED TO RED OUTLET. WILL CONT TO MONITOR. Addendum: 12/05/18 at 2323 by EDDI GUTIÉRREZ RT Amended: Links added.
--- NOTE | 2018-12-05 20:00 | NUR ---
RN NOTES Received pt awake and alert. S/P blood transfusion with no A/R noted. Pt in stable condition. Received new order from Dr. Luis for CBC, BMP in am. Spoke with sister, Beckie and made aware of new order and of pt's condition, call appreciated.
[2018-12-05] MEDS: ASCORBIC ACID 500 MG TABLET GT SCH (20:13)
[2018-12-06] MEDS: ALBUTEROL FS 2.5 MG/3 ML VIAL.NEB NEB SCH ×4 (01:16→19:53)
[2018-12-06] MEDS: GLUCERNA 1.2 1,000 ML BOTTLE GT PRN ×2 (01:42→18:37)
[2018-12-06] MEDS: IV NS 0.9% 1,000 ML IV PRN (04:22)
[2018-12-06] MEDS: GABAPENTIN 300 MG CAPSULE GT SCH ×3 (05:51→20:03)
[2018-12-06] MEDS: METOCLOPRAMIDE HCL 10 MG/10 ML UDC GT SCH ×3 (05:51→20:04)
[2018-12-06] MEDS: DEXILANT 30 MG GT SCH (05:52)
[2018-12-06] MEDS: BLOOD SUGAR DIAGNOSTIC 1 EACH STRIP IN SCH ×2 (05:54→17:55)
[2018-12-06 07:02] LABS: CALCIUM, SERUM 8.5 mg/dL (8.5-10.1); CREATININE 2.5 mg/dL (0.6-1.3)
[2018-12-06 07:21] LABS: BASOPHILS # (AUTO) 0.1 /CMM (0.0-0.2); BASOPHILS % (AUTO) 0.4 % (0.0-2.0); EOSINOPHILS % (AUTO) 2.9 % (0.0-6.0); HEMATOCRIT 26 % (33-45); HEMOGLOBIN 8.4 g/dL (11.5-14.8); LYMPHOCYTES # (AUTO) 2.8 /CMM (0.8-4.8); LYMPHOCYTES % (AUTO) 18.6 % (20.0-44.0); MEAN CORPUSCULAR HGB CONC 32 g/dl (31.0-36.0); MEAN CORPUSCULAR VOLUME 96 fL (82-100); MONOCYTES # (AUTO) 1.3 /CMM (0.1-1.30); MONOCYTES % (AUTO) 9.1 % (2.0-12.0); NEUTROPHILS # (AUTO) 10.2 /CMM (1.8-8.9); PLATELET COUNT (AUTO) 331 /CMM (150-450); WHITE BLOOD COUNT (AUTO) 14.8 K/uL (4.3-11.0)
[2018-12-06 07:35] VITALS: BP 127/60
[2018-12-06] MEDS: SIMETHICONE SUSP 40 MG/0.6 ML BOTTLE GT SCH ×2 (08:00→20:03)
--- NOTE | 2018-12-06 08:10 | NUR ---
Left a message to Dr. Luis result of CBC and BMP: Na 147, BUN 60, Creat 2.5, WBC 14.8, currently on NS at 80cc/hr. V/S 98.5, R16, B/P 127/60, 85, 100%. Awaiting for return call.
[2018-12-06 08:50] LABS: BAND % (MANUAL) 3 % (0.0-5.0); EOSINOPHILS % (MANUAL) 3 % (0-4); LYMPHOCYTES % (MANUAL) 12 % (16-48); METAMYELOCYTES % 2 % (0-0); MONOCYTES % (MANUAL) 5 % (0-11.0); NEUTROPHILS % (MANUAL) 75 (42-76)
[2018-12-06] MEDS: HYDROGEN PEROXIDE 480 ML BOTTLE TP SCH ×2 (09:00→20:04)
[2018-12-06] MEDS: LEVETIRACETAM SOL (5 ML) 100 MG/ML UDC GT SCH ×2 (09:39→20:03)
[2018-12-06] MEDS: MULTIVIT W/MINERALS 1 TAB TABLET GT SCH (09:39)
[2018-12-06] MEDS: FERROUS SULFATE - FOR SA ONLY 330 MG/7.5 ML UDC GT SCH ×2 (09:39→17:55)
[2018-12-06] MEDS: DOCUSATE SODIUM LIQ 100 MG/10 ML UDC GT SCH (09:39)
[2018-12-06] MEDS: TRILEPTAL GT SCH ×2 (09:39→20:04)
[2018-12-06] MEDS: [UNRECOGNIZED DRUG - OTHER] TP SCH ×2 (09:39→20:04)
[2018-12-06] MEDS: ACIDOPHILUS/BULGARICUS 1 EACH TAB.CHEW GT SCH ×2 (09:39→17:55)
[2018-12-06] MEDS: PROSOURCE DIETARY LIQUID 30 ML LIQUID GT SCH ×2 (09:39→17:55)
[2018-12-06] MEDS: CALCIUM CARBONATE 500 MG TAB.CHEW GT SCH ×2 (09:39→17:55)
[2018-12-06] MEDS: VIT A TP SCH ×2 (09:39→20:04)
[2018-12-06] MEDS: Z GUARD REMEDY 4 OZ OINT TP SCH ×2 (09:40→20:04)
[2018-12-06] MEDS: NEOMY SULF/BACITRAC ZN/POLY 15 GM TUBE TP SCH ×2 (09:40→20:04)
--- NOTE | 2018-12-06 09:56 | NUR ---
Spoke with Dr. Garcia, OB-DIRECTORY COMPILER and referred patient for consultation due to uterine mass/fibroid. Informed Dr. Gracia that there is a CT scan of the pelvis that was done in October and she can review that result. Per MD she will come tomorrow. Paged Dr. Queen for neurology consult, awaiting for MD to call back. Resident's sister Beckie informed. Endorsed.
--- NOTE | 2018-12-06 11:58 | NUR ---
Spoke with Dr. Queen confirming that he received neuro consult for resident. Resident's sister at bedside visiting. Patient continue on IVF NS at 80 cc/hr. Midline in the R upper extremity intact and dressing clean, no s/s of infiltration or infection.
--- NOTE | 2018-12-06 14:11 | NUR ---
Dr. Luis aware of BMP and CBC result NNO given at this time.
[2018-12-06] MEDS: INSULIN REGULAR, HUMAN 100 UNIT/ML 3 ML VIAL SQ PRN (17:56)
[2018-12-06] MEDS: ASCORBIC ACID 500 MG TABLET GT SCH (20:04)
[2018-12-06 20:35] VITALS: BP 131/76
[2018-12-07] MEDS: ALBUTEROL FS 2.5 MG/3 ML VIAL.NEB NEB SCH ×4 (01:17→19:26)
[2018-12-07] MEDS: DEXILANT 30 MG GT SCH (05:13)
[2018-12-07] MEDS: GABAPENTIN 300 MG CAPSULE GT SCH ×3 (05:13→20:05)
[2018-12-07] MEDS: METOCLOPRAMIDE HCL 10 MG/10 ML UDC GT SCH ×3 (05:13→20:06)
[2018-12-07] MEDS: BLOOD SUGAR DIAGNOSTIC 1 EACH STRIP IN SCH ×2 (06:10→18:26)
[2018-12-07] MEDS: INSULIN REGULAR, HUMAN 100 UNIT/ML 3 ML VIAL SQ PRN (06:10)
[2018-12-07 07:53] VITALS: BP 120/72
[2018-12-07] MEDS: DOCUSATE SODIUM LIQ 100 MG/10 ML UDC GT SCH (08:21)
[2018-12-07] MEDS: PROSOURCE DIETARY LIQUID 30 ML LIQUID GT SCH ×2 (08:21→16:48)
[2018-12-07] MEDS: ACIDOPHILUS/BULGARICUS 1 EACH TAB.CHEW GT SCH ×2 (08:21→16:48)
[2018-12-07] MEDS: SIMETHICONE SUSP 40 MG/0.6 ML BOTTLE GT SCH ×2 (08:21→20:05)
[2018-12-07] MEDS: TRILEPTAL GT SCH ×2 (08:21→20:05)
[2018-12-07] MEDS: MULTIVIT W/MINERALS 1 TAB TABLET GT SCH (08:21)
[2018-12-07] MEDS: LEVETIRACETAM SOL (5 ML) 100 MG/ML UDC GT SCH ×2 (08:21→20:05)
[2018-12-07] MEDS: FERROUS SULFATE - FOR SA ONLY 330 MG/7.5 ML UDC GT SCH ×2 (08:21→16:48)
[2018-12-07] MEDS: CALCIUM CARBONATE 500 MG TAB.CHEW GT SCH ×2 (08:21→16:48)
[2018-12-07] MEDS: NEOMY SULF/BACITRAC ZN/POLY 15 GM TUBE TP SCH ×2 (09:00→20:06)
[2018-12-07] MEDS: [UNRECOGNIZED DRUG - OTHER] TP SCH ×2 (09:00→20:06)
[2018-12-07] MEDS: Z GUARD REMEDY 4 OZ OINT TP SCH ×2 (09:00→20:06)
[2018-12-07] MEDS: HYDROGEN PEROXIDE 480 ML BOTTLE TP SCH ×3 (09:00→21:30)
[2018-12-07] MEDS: VIT A TP SCH ×2 (09:00→20:06)
[2018-12-07] MEDS: IV NS 0.9% 1,000 ML IV PRN (17:00)
--- NOTE | 2018-12-07 19:03 | NUR ---
Seen by TOOL AND DIE MACHINIST Anna Vargas. Received order to do CBC BMP in AM. Pt still on IV hydration.
--- NOTE | 2018-12-07 19:27 | NUR ---
RECEIVED TRACH SHILEY 8 XLT PT ON [facility] VENT WITH NOTED SETTINGS. PT IS AWAKE AND RESPONDS TO STIMULI WHEN SUCTION. TRACH IS PATENT AND SECURED. VARNISH MAKER DONE. Q6 BREATHING TX GIVEN WITH NO ADVERSE REACTION NOTED. SUCTIONED LARGE AMOUNT OF YELLOW THICK SECRETIONS. VENT PLUGGED INTO RED OUTLET. ALARMS ON AND AUDIBLE. AMBU BAG @ BEDSIDE. NO RESP DISTRESS AT THIS TIME. WILL CONT TO MONITOR PT.
[2018-12-07] MEDS: ASCORBIC ACID 500 MG TABLET GT SCH (20:06)
[2018-12-07 20:11] VITALS: BP 128/77
[2018-12-08] MEDS: ALBUTEROL FS 2.5 MG/3 ML VIAL.NEB NEB SCH ×4 (01:06→19:40)
[2018-12-08] MEDS: GABAPENTIN 300 MG CAPSULE GT SCH ×3 (05:07→20:04)
[2018-12-08] MEDS: METOCLOPRAMIDE HCL 10 MG/10 ML UDC GT SCH ×3 (05:07→20:04)
[2018-12-08] MEDS: DEXILANT 30 MG GT SCH (05:07)
[2018-12-08] MEDS: IV NS 0.9% 1,000 ML IV PRN ×2 (06:00→18:37)
[2018-12-08] MEDS: INSULIN REGULAR, HUMAN 100 UNIT/ML 3 ML VIAL SQ PRN ×2 (06:12→17:47)
[2018-12-08] MEDS: BLOOD SUGAR DIAGNOSTIC 1 EACH STRIP IN SCH ×2 (06:12→17:47)
[2018-12-08 07:32] VITALS: BP 130/71
[2018-12-08 07:49] LABS: BASOPHILS % (AUTO) 0.2 % (0.0-2.0); EOSINOPHILS % (AUTO) 2.8 % (0.0-6.0); HEMATOCRIT 24 % (33-45); HEMOGLOBIN 7.7 g/dL (11.5-14.8); LYMPHOCYTES # (AUTO) 3.4 /CMM (0.8-4.8); LYMPHOCYTES % (AUTO) 21.2 % (20.0-44.0); MEAN CORPUSCULAR HGB CONC 33 g/dl (31.0-36.0); MEAN CORPUSCULAR VOLUME 96 fL (82-100); MONOCYTES # (AUTO) 1.4 /CMM (0.1-1.30); MONOCYTES % (AUTO) 8.8 % (2.0-12.0); NEUTROPHILS # (AUTO) 10.7 /CMM (1.8-8.9); PLATELET COUNT (AUTO) 337 /CMM (150-450); RED BLOOD CELL COUNT(AUTO) 2.44 MIL/uL (4.0-5.2)
[2018-12-08 07:51] LABS: CALCIUM, SERUM 8.5 mg/dL (8.5-10.1); CREATININE 2.3 mg/dL (0.6-1.3); POTASSIUM 3.7 mmol/L (3.5-5.1)
[2018-12-08] MEDS: SIMETHICONE SUSP 40 MG/0.6 ML BOTTLE GT SCH ×2 (08:00→20:04)
--- NOTE | 2018-12-08 08:42 | NUR ---
RT PATIENT WAS RECEIVED ON VENT SUPPORT WITH THE SAME VENT SETTINGS. PATIENT STABLE AT THIS TIME ,TRACH TUBE PATENT AND SECURED. WILL CONTINUE TO MONITOR PATIENT. Addendum: 12/08/18 at 0846 by DIEGO BRADY RT Amended: Links added.
[2018-12-08] MEDS: DOCUSATE SODIUM LIQ 100 MG/10 ML UDC GT SCH (09:00)
[2018-12-08] MEDS: [UNRECOGNIZED DRUG - OTHER] TP SCH ×2 (09:00→20:04)
[2018-12-08] MEDS: MULTIVIT W/MINERALS 1 TAB TABLET GT SCH (09:00)
[2018-12-08] MEDS: TRILEPTAL GT SCH ×2 (09:00→20:04)
[2018-12-08] MEDS: FERROUS SULFATE - FOR SA ONLY 330 MG/7.5 ML UDC GT SCH ×2 (09:00→17:47)
[2018-12-08] MEDS: VIT A TP SCH ×2 (09:00→20:04)
[2018-12-08] MEDS: Z GUARD REMEDY 4 OZ OINT TP SCH ×2 (09:00→20:04)
[2018-12-08] MEDS: ACIDOPHILUS/BULGARICUS 1 EACH TAB.CHEW GT SCH ×2 (09:00→17:47)
[2018-12-08] MEDS: LEVETIRACETAM SOL (5 ML) 100 MG/ML UDC GT SCH ×2 (09:00→20:04)
[2018-12-08] MEDS: PROSOURCE DIETARY LIQUID 30 ML LIQUID GT SCH ×2 (09:00→17:47)
[2018-12-08] MEDS: CALCIUM CARBONATE 500 MG TAB.CHEW GT SCH ×2 (09:00→17:47)
[2018-12-08] MEDS: HYDROGEN PEROXIDE 480 ML BOTTLE TP SCH ×2 (09:03→22:10)
[2018-12-08] MEDS ORDERED: LORAZEPAM INJ 2 MG/ML VIAL IV PRN (15:30)
--- NOTE | 2018-12-08 15:30 | NUR ---
Notified Dr. Luis of CBC and BMP result (WBC 16), Current V/S 97.7, 118/62, 98, RR 16, Patient with episode of swinging her arms left and right as a result disconnecting her trach tubing. Resident's sister at bedside and said that she spoke with Dr. Luis and concern about her sister requested Dr. Luis to give something to calm her down. New order given by MD to start ATB, Merrem, send UA and C/S, Ativan 1 mg IVP PRN for anxiety m/b pulling trach tubing. All orders noted and carried out. Patient continue to receive IV fluid of NS at 80 cc/hr., midline in the R upper arm.
[2018-12-08] MEDS: GLUCERNA 1.2 1,000 ML BOTTLE GT PRN (17:47)
[2018-12-08] MEDS: MEROPENEM 500 MG in IV NS 0.9% 50 ML IV SCH (18:35)
[2018-12-08 19:51] LABS: APPEARANCE,URINE SL CLOUDY (CLEAR); BILIRUBIN,URINE NEGATIVE (NEGATIVE); BLOOD, URINE 2+ Ery/uL (NEGATIVE); COLOR,URINE YELLOW (YELLOW); KETONES,URINE NEGATIVE (NEGATIVE); LEUKOCYTE ESTERASE ,URINE 3+ (NEGATIVE); NITRITE, URINE NEGATIVE (NEGATIVE); PROTEIN,URINE 2+ mg/dl (NEGATIVE); UGLUCOSE NEGATIVE (NEGATIVE); UROBILINOGEN,URINE 0.2 EU/dL (0.2)
[2018-12-08 19:59] LABS: BACTERIA,URINE Few /HPF (None Seen); RBC,URINE 21-50 /HPF (0-2); SQUAMOUS EPITHELIAL CELL,UR Moderate /HPF (None Seen); WBC,URINE 81-100 /HPF (0-3)
[2018-12-08] MEDS: ASCORBIC ACID 500 MG TABLET GT SCH (20:04)
[2018-12-08 20:13] VITALS: BP 134/67
--- NOTE | 2018-12-08 20:41 | NUR ---
RT NOTE PT RCVD TRACH'D ON MECHANICAL VENT WITH CHARTED SETTINGS. TX APRIL WELL. SX DONE. PT TRACH IS PATENT AND SECURE. VENT IS PLUGGED INTO RED OUTLET. ALARMS ARE ON AND AUDIBLE. AMBU BAG AT BEDSIDE. WILL CONTINUE TO MONITOR. Addendum: 12/08/18 at 2041 by MICH AVILA RT Amended: Links added.
[2018-12-09] MEDS: ALBUTEROL FS 2.5 MG/3 ML VIAL.NEB NEB SCH ×4 (00:49→19:26)
[2018-12-09] MEDS: GABAPENTIN 300 MG CAPSULE GT SCH ×3 (04:55→21:17)
[2018-12-09] MEDS: METOCLOPRAMIDE HCL 10 MG/10 ML UDC GT SCH ×3 (04:55→21:17)
[2018-12-09] MEDS: DEXILANT 30 MG GT SCH (05:01)
[2018-12-09] MEDS: BLOOD SUGAR DIAGNOSTIC 1 EACH STRIP IN SCH ×2 (05:45→17:06)
[2018-12-09] MEDS: INSULIN REGULAR, HUMAN 100 UNIT/ML 3 ML VIAL SQ PRN ×2 (05:45→17:06)
[2018-12-09] MEDS: MEROPENEM 500 MG in IV NS 0.9% 50 ML IV SCH ×2 (06:08→18:11)
--- NOTE | 2018-12-09 06:51 | NUR ---
Pt stable during the night,slept well.Still on IV hydration.Will continue to monitor.
[2018-12-09 07:29] VITALS: BP 107/52
[2018-12-09] MEDS: SIMETHICONE SUSP 40 MG/0.6 ML BOTTLE GT SCH ×2 (09:05→20:00)
[2018-12-09] MEDS: DOCUSATE SODIUM LIQ 100 MG/10 ML UDC GT SCH (09:06)
[2018-12-09] MEDS: FERROUS SULFATE - FOR SA ONLY 330 MG/7.5 ML UDC GT SCH ×2 (09:06→16:33)
[2018-12-09] MEDS: ACIDOPHILUS/BULGARICUS 1 EACH TAB.CHEW GT SCH ×2 (09:06→16:33)
[2018-12-09] MEDS: LEVETIRACETAM SOL (5 ML) 100 MG/ML UDC GT SCH ×2 (09:06→21:16)
[2018-12-09] MEDS: Z GUARD REMEDY 4 OZ OINT TP SCH ×2 (09:07→21:17)
[2018-12-09] MEDS: [UNRECOGNIZED DRUG - OTHER] TP SCH ×2 (09:07→21:17)
[2018-12-09] MEDS: CALCIUM CARBONATE 500 MG TAB.CHEW GT SCH ×2 (09:07→16:33)
[2018-12-09] MEDS: VIT A TP SCH ×2 (09:07→21:17)
[2018-12-09] MEDS: PROSOURCE DIETARY LIQUID 30 ML LIQUID GT SCH ×2 (09:07→16:33)
[2018-12-09] MEDS: TRILEPTAL GT SCH ×2 (09:07→21:17)
[2018-12-09] MEDS: MULTIVIT W/MINERALS 1 TAB TABLET GT SCH (09:07)
[2018-12-09] MEDS: HYDROGEN PEROXIDE 480 ML BOTTLE TP SCH ×2 (09:39→21:00)
--- NOTE | 2018-12-09 09:50 | NUR ---
Pt's Bourgeois catheter came out with balloon intact. Replaced Bourgeois catheter with same size Fr 16 x 10 mL. Pt tolerated procedure well.
[2018-12-09] MEDS: IV NS 0.9% 1,000 ML IV PRN (10:00)
[2018-12-09] MEDS: GLUCERNA 1.2 1,000 ML BOTTLE GT PRN (11:04)
--- NOTE | 2018-12-09 12:17 | NUR ---
Notified pt's sister Beckie that Bourgeois catheter came out and was replaced. She said she will visit pt tomorrow.
[2018-12-09 20:10] VITALS: BP 133/68
[2018-12-09] MEDS: ASCORBIC ACID 500 MG TABLET GT SCH (21:17)
[2018-12-10] MEDS: ALBUTEROL FS 2.5 MG/3 ML VIAL.NEB NEB SCH ×4 (01:34→19:25)
[2018-12-10] MEDS: IV NS 0.9% 1,000 ML IV PRN (01:36)
[2018-12-10] MEDS: GLUCERNA 1.2 1,000 ML BOTTLE GT PRN (03:44)
[2018-12-10] MEDS: BLOOD SUGAR DIAGNOSTIC 1 EACH STRIP IN SCH ×2 (05:41→17:58)
[2018-12-10] MEDS: METOCLOPRAMIDE HCL 10 MG/10 ML UDC GT SCH ×3 (05:41→20:16)
[2018-12-10] MEDS: DEXILANT 30 MG GT SCH (05:41)
[2018-12-10] MEDS: GABAPENTIN 300 MG CAPSULE GT SCH ×4 (05:41→20:16)
[2018-12-10] MEDS: INSULIN REGULAR, HUMAN 100 UNIT/ML 3 ML VIAL SQ PRN ×2 (05:41→18:11)
--- NOTE | 2018-12-10 06:08 | NUR ---
RT NOTE PT REC'D TRACHED ON [facility] VENT ON AC MODE. NO RESP DISTRESS OR SOB NOTED. TRACH IS PATENT AND SECURED. SX'D FOR MOD AMT OF PALE YELLOW SECRETIONS. ALARMS ARE SET AND AUDIBLE. VENT PLUGGED INTO RED OUTLET. AMBU BAG BEDSIDE. Addendum: 12/10/18 at 0610 by LADAN WICK RT Amended: Links added.
[2018-12-10] MEDS: MEROPENEM 500 MG in IV NS 0.9% 50 ML IV SCH ×2 (06:16→18:20)
[2018-12-10] MEDS: HYDROGEN PEROXIDE 480 ML BOTTLE TP SCH ×3 (07:03→21:00)
[2018-12-10 07:34] VITALS: BP 116/64
[2018-12-10 07:46] LABS: BASOPHILS % (AUTO) 0.3 % (0.0-2.0); EOSINOPHILS % (AUTO) 3.9 % (0.0-6.0); HEMATOCRIT 22 % (33-45); HEMOGLOBIN 7.3 g/dL (11.5-14.8); LYMPHOCYTES # (AUTO) 2.5 /CMM (0.8-4.8); LYMPHOCYTES % (AUTO) 18.8 % (20.0-44.0); MEAN CORPUSCULAR HGB CONC 33 g/dl (31.0-36.0); MEAN CORPUSCULAR VOLUME 96 fL (82-100); MONOCYTES # (AUTO) 1.2 /CMM (0.1-1.30); MONOCYTES % (AUTO) 9.1 % (2.0-12.0); NEUTROPHILS # (AUTO) 9.1 /CMM (1.8-8.9); NEUTROPHILS % (AUTO) 67.9 % (43.0-81.0); PLATELET COUNT (AUTO) 365 /CMM (150-450); RED BLOOD CELL COUNT(AUTO) 2.34 MIL/uL (4.0-5.2); WHITE BLOOD COUNT (AUTO) 13.3 K/uL (4.3-11.0)
[2018-12-10 07:50] LABS: CREATININE 2.2 mg/dL (0.6-1.3); POTASSIUM 4.1 mmol/L (3.5-5.1)
[2018-12-10] MEDS: SIMETHICONE SUSP 40 MG/0.6 ML BOTTLE GT SCH ×2 (08:00→20:16)
[2018-12-10] MEDS: PROSOURCE DIETARY LIQUID 30 ML LIQUID GT SCH ×2 (09:00→17:58)
[2018-12-10] MEDS: VIT A TP SCH ×2 (09:00→20:16)
[2018-12-10] MEDS: TRILEPTAL GT SCH ×2 (09:00→20:16)
[2018-12-10] MEDS: LEVETIRACETAM SOL (5 ML) 100 MG/ML UDC GT SCH ×2 (09:00→20:16)
[2018-12-10] MEDS: [UNRECOGNIZED DRUG - OTHER] TP SCH ×2 (09:00→20:16)
[2018-12-10] MEDS: MULTIVIT W/MINERALS 1 TAB TABLET GT SCH (09:00)
[2018-12-10] MEDS: CALCIUM CARBONATE 500 MG TAB.CHEW GT SCH ×2 (09:00→17:58)
[2018-12-10] MEDS: FERROUS SULFATE - FOR SA ONLY 330 MG/7.5 ML UDC GT SCH ×2 (09:00→17:58)
[2018-12-10] MEDS: DOCUSATE SODIUM LIQ 100 MG/10 ML UDC GT SCH (09:00)
[2018-12-10] MEDS: ACIDOPHILUS/BULGARICUS 1 EACH TAB.CHEW GT SCH ×2 (09:00→17:58)
[2018-12-10] MEDS: Z GUARD REMEDY 4 OZ OINT TP SCH ×2 (09:00→20:16)
--- NOTE | 2018-12-10 09:26 | NUR ---
RT PATIENT REC'D TRACHED ON ORDERED MODALITY TOLERATED WELL. ALL SAFETY MEASURES CHECKED. TRACH PATENT AND SECURE IN PROPER POSITION. TRACH CARE DONE. TRACH TIES, GAUZE AND INNER CANNULA CHANGED. NO SOB OR DISTRESS NOTED. WILL CONTINUE CURRENT PLAN OF CARE. Addendum: 12/10/18 at 0930 by ELIZABETH CAPONE RT Amended: Links added.
--- NOTE | 2018-12-10 10:15 | NUR ---
Relayed CBC and BMP results to Dr Luis. Received order to change IV fluid to 1/2 NS at 80 mL/hr IV until further order. CBC and BMP on 12/13/18.
--- NOTE | 2018-12-10 10:29 | NUR ---
Late entry for 12/09/18 Pt was seen by NAN Parker. Informed her that pt had a seizure on 12/03/18 that lasted for 45 seconds. Also informed her that pt has been moving her left arm frequently and according to pt's sister she might have pain or spasms that is why she is doing it. Pt's sister said that when pt used to be able to talk, she moves her left arm and tells her that she has nerve pain. NAN Parker reviewed pt's medications and said she will not add any new medication at this time. Pt sometimes gets disconnected from the ventilator when she moves her left arm. Vent alarms are on and pt is immediately reconnected to the vent. No episode of desaturation or SOB has been noted. Informed Beckie.
[2018-12-10] MEDS: IV 1/2NS 1000 ML 1,000 ML IV PRN (11:00)
--- NOTE | 2018-12-10 13:09 | NUR ---
Dr Luis saw pt and he also had a meeting with pt's sister Beckie. Received order to increase Gabapentin to 600 mg q 8 hours for neuropathy. Pt's sister told him that pt might be having pain or spams that is why she is moving her left arm frequently. Asked Dr Luis if pt still needs Ativan for pulling out tubes. He said to keep the Ativan PRN order for pulling out tubes for 14 days. He also ordered to give 250 mL of water flushes q 4 hours until 12/12/18 then resume to q 6 hours. Addendum: 12/10/18 at 1312 by SARITA GOMEZ RN Dr Luis ordered CBC and BMP for 12/13/18.
[2018-12-10] MEDS ORDERED: LORAZEPAM INJ 2 MG/ML VIAL IV PRN (15:00)
[2018-12-10 20:09] VITALS: BP 140/73
[2018-12-10] MEDS: ASCORBIC ACID 500 MG TABLET GT SCH (20:16)
[2018-12-11] MEDS: IV 1/2NS 1000 ML 1,000 ML IV PRN ×2 (00:11→15:57)
[2018-12-11] MEDS: ALBUTEROL FS 2.5 MG/3 ML VIAL.NEB NEB SCH ×4 (01:24→19:05)
[2018-12-11] MEDS: GABAPENTIN 300 MG CAPSULE GT SCH ×3 (05:22→20:31)
[2018-12-11] MEDS: DEXILANT 30 MG GT SCH (05:22)
[2018-12-11] MEDS: METOCLOPRAMIDE HCL 10 MG/10 ML UDC GT SCH ×3 (05:22→20:31)
[2018-12-11] MEDS: MEROPENEM 500 MG in IV NS 0.9% 50 ML IV SCH ×2 (06:06→17:43)
[2018-12-11] MEDS: BLOOD SUGAR DIAGNOSTIC 1 EACH STRIP IN SCH ×2 (06:06→17:23)
[2018-12-11] MEDS: INSULIN REGULAR, HUMAN 100 UNIT/ML 3 ML VIAL SQ PRN (06:06)
[2018-12-11 07:52] VITALS: BP 133/66
[2018-12-11] MEDS: DOCUSATE SODIUM LIQ 100 MG/10 ML UDC GT SCH (08:05)
[2018-12-11] MEDS: SIMETHICONE SUSP 40 MG/0.6 ML BOTTLE GT SCH ×2 (08:05→20:31)
[2018-12-11] MEDS: FERROUS SULFATE - FOR SA ONLY 330 MG/7.5 ML UDC GT SCH ×2 (08:06→17:22)
[2018-12-11] MEDS: LEVETIRACETAM SOL (5 ML) 100 MG/ML UDC GT SCH ×2 (08:07→20:31)
[2018-12-11] MEDS: ACIDOPHILUS/BULGARICUS 1 EACH TAB.CHEW GT SCH ×2 (08:07→17:22)
[2018-12-11] MEDS: PROSOURCE DIETARY LIQUID 30 ML LIQUID GT SCH ×2 (08:08→17:22)
[2018-12-11] MEDS: MULTIVIT W/MINERALS 1 TAB TABLET GT SCH (08:09)
[2018-12-11] MEDS: CALCIUM CARBONATE 500 MG TAB.CHEW GT SCH ×2 (08:09→17:23)
[2018-12-11] MEDS: Z GUARD REMEDY 4 OZ OINT TP SCH ×2 (08:10→20:31)
[2018-12-11] MEDS: HYDROGEN PEROXIDE 480 ML BOTTLE TP SCH ×2 (08:10→19:05)
--- NOTE | 2018-12-11 08:10 | NUR ---
RT NOTE PT REC'D TRACHED ON MECHANICAL VENT ON CHARTED SETTINGS. NO RESP DISTRESS OR SOB NOTED. TRACH IS PATENT AND SECURED. SX'D FOR MODERATE AMT OF PALE YELLOW SECRETIONS. ALARMS ARE SET AND AUDIBLE. VENT PLUGGED INTO RED OUTLET. AMBU BAG BEDSIDE. Addendum: 12/11/18 at 0811 by MARCO FRANCOIS RT Amended: Links added.
[2018-12-11] MEDS: [UNRECOGNIZED DRUG - OTHER] TP SCH ×2 (08:11→20:31)
[2018-12-11] MEDS: VIT A TP SCH ×2 (08:11→20:31)
[2018-12-11] MEDS: TRILEPTAL GT SCH ×2 (08:14→20:31)
[2018-12-11] MEDS: LORAZEPAM 1 MG TABLET GT PRN (14:27)
--- NOTE | 2018-12-11 14:30 | NUR ---
Pt had episode of seizure lasting 40 seconds. Ativan via GT PRN given. No SOB/ no distress noted. Pt's sister Beckie notified
[2018-12-11] MEDS: GLUCERNA 1.2 1,000 ML BOTTLE GT PRN ×2 (18:19→19:15)
--- NOTE | 2018-12-11 19:04 | NUR ---
Relayed urine c/s result to Dr. Montaño, awaiting response. Will endorse to follow up for any changes/ new orders. Pt afebrile, in no distress.
[2018-12-11] MEDS: ASCORBIC ACID 500 MG TABLET GT SCH (20:31)
[2018-12-11 20:49] VITALS: BP 131/67
--- NOTE | 2018-12-11 23:15 | NUR ---
PATIENT RECEIVED ON TRACH TO VENT WITH SETTINGS OF AC 16, 550 Vt, 30%, +5. SUCTIONED FOR MINIMAL, THIN, WHITE SECRETIONS. GIVEN IN-LINE TREATMENTS WITH NO ADVERSE REACTIONS. AMBU BAG AT BEDSIDE. VENT ALARM AUDIBLE AND VISIBLE. VENT PLUGGED INTO RED OUTLET. Addendum: 12/11/18 at 2317 by SARA MOLINA RT Amended: Links added.
[2018-12-12] MEDS: ALBUTEROL FS 2.5 MG/3 ML VIAL.NEB NEB SCH ×4 (01:50→19:02)
[2018-12-12] MEDS: IV 1/2NS 1000 ML 1,000 ML IV PRN ×2 (05:17→21:11)
[2018-12-12] MEDS: GABAPENTIN 300 MG CAPSULE GT SCH ×3 (05:21→20:16)
[2018-12-12] MEDS: METOCLOPRAMIDE HCL 10 MG/10 ML UDC GT SCH ×3 (05:21→20:18)
[2018-12-12] MEDS: DEXILANT 30 MG GT SCH (05:22)
[2018-12-12] MEDS: INSULIN REGULAR, HUMAN 100 UNIT/ML 3 ML VIAL SQ PRN ×2 (05:22→18:28)
[2018-12-12] MEDS: BLOOD SUGAR DIAGNOSTIC 1 EACH STRIP IN SCH ×2 (05:22→18:26)
[2018-12-12] MEDS: MEROPENEM 500 MG in IV NS 0.9% 50 ML IV SCH (06:09)
[2018-12-12 07:34] VITALS: BP 114/55
[2018-12-12] MEDS: SIMETHICONE SUSP 40 MG/0.6 ML BOTTLE GT SCH ×2 (08:00→20:14)
--- NOTE | 2018-12-12 08:30 | NUR ---
RT NOTE PT REC'D TRACHED ON MECHANICAL VENT ON CHARTED SETTINGS. NO RESP DISTRESS OR SOB NOTED AT THIS TIME. TRACH IS PATENT AND SECURED. SX'D FOR MODERATE AMOUNT OF PALE YELLOW SECRETIONS. ALARMS ARE SET AND AUDIBLE. VENT PLUGGED INTO RED OUTLET. AMBU BAG BEDSIDE. Addendum: 12/12/18 at 0831 by MARCO FRANCOIS RT Amended: Links added.
[2018-12-12] MEDS: ACIDOPHILUS/BULGARICUS 1 EACH TAB.CHEW GT SCH ×2 (09:00→17:00)
[2018-12-12] MEDS: [UNRECOGNIZED DRUG - OTHER] TP SCH ×2 (09:00→20:18)
[2018-12-12] MEDS: CALCIUM CARBONATE 500 MG TAB.CHEW GT SCH ×2 (09:00→17:00)
[2018-12-12] MEDS: HYDROGEN PEROXIDE 480 ML BOTTLE TP SCH ×2 (09:00→20:18)
[2018-12-12] MEDS: TRILEPTAL GT SCH ×2 (09:00→20:17)
[2018-12-12] MEDS: LEVETIRACETAM SOL (5 ML) 100 MG/ML UDC GT SCH ×2 (09:00→20:15)
[2018-12-12] MEDS: DOCUSATE SODIUM LIQ 100 MG/10 ML UDC GT SCH (09:00)
[2018-12-12] MEDS: FERROUS SULFATE - FOR SA ONLY 330 MG/7.5 ML UDC GT SCH ×2 (09:00→17:00)
[2018-12-12] MEDS: PROSOURCE DIETARY LIQUID 30 ML LIQUID GT SCH ×2 (09:00→17:00)
[2018-12-12] MEDS: MULTIVIT W/MINERALS 1 TAB TABLET GT SCH (09:00)
[2018-12-12] MEDS: VIT A TP SCH ×2 (09:00→20:18)
[2018-12-12] MEDS: Z GUARD REMEDY 4 OZ OINT TP SCH ×2 (09:00→20:19)
--- NOTE | 2018-12-12 12:15 | NUR ---
Notified Dr. Luis of the final urine culture result that shows Staph Aureus and Pseudo Fluorescens/Putida. Patient is currently on IV Merrem but does not show sensitivities from Merrem. Dr. Luis changed IV ATB to Zosyn 3.375 gm Q 6 hours x 14 days. Resident's sister Beckie informed of new ATB order.
--- NOTE | 2018-12-12 12:43 | NUR ---
Left a message to [facility] if IV Zosyn is covered or not by patient's insurance, awaiting for call back.
--- NOTE | 2018-12-12 14:00 | NUR ---
Spoke with Melissa who said that it is not covered by insurance but will send prior authorization request. [facility] pharmacist informed. Per [facility] pharmacist Luba, to follow protocol of extended infusion for Zozyn, same dose to be given Q 8 hours x 4 hours instead of Q 6 hours. Orders carried out.
[2018-12-12] MEDS ORDERED: PIPERACILLIN /TAZOBACTAM 3.375 G in IV D5W 50 ML IV ONE (15:00)
[2018-12-12] MEDS: GLUCERNA 1.2 1,000 ML BOTTLE GT PRN (15:40)
--- NOTE | 2018-12-12 16:30 | NUR ---
NAN Calhoun notified of patient's urine culture result per Dr. Luis's request. Per STORE HAND she will see patient on Thursday if not emergency. Patient currently on ATB. First dose of Zosyn given, no adverse reaction.
[2018-12-12] MEDS ORDERED: PIPERACILLIN /TAZOBACTAM 3.375 G in IV D5W 50 ML IV SCH (18:00)
[2018-12-12] MEDS: ASCORBIC ACID 500 MG TABLET GT SCH (20:18)
[2018-12-12 20:29] VITALS: BP 149/94
[2018-12-12] MEDS: PIPERACILLIN /TAZOBACTAM 3.375 G in IV D5W 100 ML IV SCH (21:11)
[2018-12-12] MEDS ORDERED: PIPERACILLIN /TAZOBACTAM 3.375 G in IV D5W 100 ML IV SCH (23:00)
[2018-12-13] MEDS: ALBUTEROL FS 2.5 MG/3 ML VIAL.NEB NEB SCH ×4 (01:12→19:16)
[2018-12-13] MEDS: PIPERACILLIN /TAZOBACTAM 3.375 G in IV D5W 100 ML IV SCH ×3 (05:10→20:51)
[2018-12-13] MEDS: GABAPENTIN 300 MG CAPSULE GT SCH ×3 (05:19→20:14)
[2018-12-13] MEDS: BLOOD SUGAR DIAGNOSTIC 1 EACH STRIP IN SCH ×2 (05:20→18:06)
[2018-12-13] MEDS: DEXILANT 30 MG GT SCH (05:20)
[2018-12-13] MEDS: METOCLOPRAMIDE HCL 10 MG/10 ML UDC GT SCH ×3 (05:20→20:15)
[2018-12-13] MEDS: INSULIN REGULAR, HUMAN 100 UNIT/ML 3 ML VIAL SQ PRN ×2 (05:21→18:06)
[2018-12-13 07:22] LABS: BASOPHILS % (AUTO) 0.3 % (0.0-2.0); EOSINOPHILS % (AUTO) 1.9 % (0.0-6.0); HEMATOCRIT 23 % (33-45); HEMOGLOBIN 7.6 g/dL (11.5-14.8); LYMPHOCYTES # (AUTO) 1.4 /CMM (0.8-4.8); LYMPHOCYTES % (AUTO) 12.5 % (20.0-44.0); MEAN CORPUSCULAR HGB CONC 33 g/dl (31.0-36.0); MEAN CORPUSCULAR VOLUME 95 fL (82-100); MONOCYTES # (AUTO) 0.6 /CMM (0.1-1.30); MONOCYTES % (AUTO) 5.7 % (2.0-12.0); NEUTROPHILS # (AUTO) 9.1 /CMM (1.8-8.9); NEUTROPHILS % (AUTO) 79.6 % (43.0-81.0); PLATELET COUNT (AUTO) 429 /CMM (150-450); RED BLOOD CELL COUNT(AUTO) 2.42 MIL/uL (4.0-5.2); WHITE BLOOD COUNT (AUTO) 11.4 K/uL (4.3-11.0)
[2018-12-13 07:31] LABS: CALCIUM, SERUM 9.2 mg/dL (8.5-10.1); CREATININE 2.3 mg/dL (0.6-1.3); POTASSIUM 4.6 mmol/L (3.5-5.1)
[2018-12-13] MEDS: SIMETHICONE SUSP 40 MG/0.6 ML BOTTLE GT SCH ×2 (08:00→20:12)
[2018-12-13 08:14] LABS: EOSINOPHILS % (MANUAL) 2 % (0-4); LYMPHOCYTES % (MANUAL) 5 % (16-48); MONOCYTES % (MANUAL) 5 % (0-11.0); MYELOCYTES % 1 % (0-0); NEUTROPHILS % (MANUAL) 87 (42-76)
[2018-12-13] MEDS: PROSOURCE DIETARY LIQUID 30 ML LIQUID GT SCH ×2 (09:00→16:42)
[2018-12-13] MEDS: MULTIVIT W/MINERALS 1 TAB TABLET GT SCH (09:00)
[2018-12-13] MEDS: Z GUARD REMEDY 4 OZ OINT TP SCH ×2 (09:00→20:16)
[2018-12-13] MEDS: HYDROGEN PEROXIDE 480 ML BOTTLE TP SCH ×2 (09:00→21:26)
[2018-12-13] MEDS: LEVETIRACETAM SOL (5 ML) 100 MG/ML UDC GT SCH ×2 (09:00→20:14)
[2018-12-13] MEDS: DOCUSATE SODIUM LIQ 100 MG/10 ML UDC GT SCH (09:00)
[2018-12-13] MEDS: [UNRECOGNIZED DRUG - OTHER] TP SCH ×2 (09:00→20:15)
[2018-12-13] MEDS: VIT A TP SCH ×2 (09:00→20:15)
[2018-12-13] MEDS: FERROUS SULFATE - FOR SA ONLY 330 MG/7.5 ML UDC GT SCH ×2 (09:00→16:42)
[2018-12-13] MEDS: TRILEPTAL GT SCH ×2 (09:00→20:14)
[2018-12-13] MEDS: ACIDOPHILUS/BULGARICUS 1 EACH TAB.CHEW GT SCH ×2 (09:00→16:42)
[2018-12-13] MEDS: CALCIUM CARBONATE 500 MG TAB.CHEW GT SCH ×2 (09:00→16:42)
[2018-12-13 09:48] VITALS: BP 129/64
[2018-12-13] MEDS: LORAZEPAM 1 MG TABLET GT PRN (09:53)
--- NOTE | 2018-12-13 10:16 | NUR ---
SELMA was about to provide care to pt when she stepped into the room and saw the pt shaking like she was having a seizure. Charge nurse went to see pt immediately but pt has stopped shaking when she got to the room. Pt awake. BP 153/71 HR 92 T 98.8 R 16 O2 sat 100%. Pt was given Ativan for seizure. Notified Dr Luis. He said to have Dr Malave see her. Informed pt's sister. She said she is on her way to visit pt today. Addendum: 12/13/18 at 1052 by SARITA GOMEZ RN Relayed CBC and BMP results to Dr Luis.
--- NOTE | 2018-12-13 10:50 | NUR ---
Called Dr Malave's office. Left message with Rajeev. Also called Dr Ho's office and spoke with her. She said she will see pt.
--- NOTE | 2018-12-13 12:50 | NUR ---
Dr Malave ordered to increase Trileptal to 600 mg GT q 12 hours for seizure. He also ordered calcium, phosphorus, magnesium. Notified him that pt had CBC and BMP done today. Informed Beckie at bedside.
[2018-12-13 13:30] LABS: CALCIUM, SERUM 9.1 mg/dL (8.5-10.1); MAGNESIUM 2.4 mg/dL (1.8-2.4)
--- NOTE | 2018-12-13 16:20 | NUR ---
Received order to DC contact isolation for ESBL and VRE in urine. Pt's latest urine culture shows Staph aureus and Pseudo fluorescens/Putida. Pt's urine yellowish in color, no foul odor. Temp 98 F. Informed Beckie.
[2018-12-13] MEDS: GLUCERNA 1.2 1,000 ML BOTTLE GT PRN (16:26)
--- NOTE | 2018-12-13 18:37 | NUR ---
RT Pt on mech vent and tolerating settings well. Pt is stable. No respiratory distress or sob noted t/o shift. Addendum: 12/13/18 at 1838 by JULIETH REY RT Amended: Links added.
[2018-12-13 20:00] VITALS: BP 134/72
--- NOTE | 2018-12-13 20:00 | NUR ---
RN NOTES Seen by Anna Vargas NP, with no new orders.
[2018-12-13] MEDS: ASCORBIC ACID 500 MG TABLET GT SCH (20:15)
[2018-12-14] MEDS: IV 1/2NS 1000 ML 1,000 ML IV PRN ×2 (01:00→22:30)
[2018-12-14] MEDS: ALBUTEROL FS 2.5 MG/3 ML VIAL.NEB NEB SCH ×4 (01:17→19:19)
[2018-12-14] MEDS: GABAPENTIN 300 MG CAPSULE GT SCH ×3 (05:03→20:01)
[2018-12-14] MEDS: DEXILANT 30 MG GT SCH (05:03)
[2018-12-14] MEDS: BLOOD SUGAR DIAGNOSTIC 1 EACH STRIP IN SCH ×2 (05:03→18:13)
[2018-12-14] MEDS: METOCLOPRAMIDE HCL 10 MG/10 ML UDC GT SCH ×3 (05:03→20:02)
[2018-12-14] MEDS: INSULIN REGULAR, HUMAN 100 UNIT/ML 3 ML VIAL SQ PRN ×2 (05:04→18:13)
[2018-12-14] MEDS: PIPERACILLIN /TAZOBACTAM 3.375 G in IV D5W 100 ML IV SCH ×3 (05:34→21:00)
[2018-12-14 07:53] VITALS: BP 124/65
[2018-12-14] MEDS: SIMETHICONE SUSP 40 MG/0.6 ML BOTTLE GT SCH ×2 (08:00→20:01)
--- NOTE | 2018-12-14 08:24 | NUR ---
RT NOTE PT REC'D TRACHED ON MECHANICAL VENT ON CHARTED SETTINGS. NO RESP DISTRESS OR SOB NOTED AT THIS TIME. TRACH IS PATENT AND SECURED. SX'D FOR MODERATE AMOUNT OF PALE YELLOW SECRETIONS. ALARMS ARE SET AND AUDIBLE. VENT PLUGGED INTO RED OUTLET. AMBU BAG BEDSIDE. Addendum: 12/14/18 at 0824 by MARCO FRANCOIS RT Amended: Links added.
[2018-12-14] MEDS: LEVETIRACETAM SOL (5 ML) 100 MG/ML UDC GT SCH ×2 (09:00→20:01)
[2018-12-14] MEDS: PROSOURCE DIETARY LIQUID 30 ML LIQUID GT SCH ×2 (09:00→17:21)
[2018-12-14] MEDS: ACIDOPHILUS/BULGARICUS 1 EACH TAB.CHEW GT SCH ×2 (09:00→17:21)
[2018-12-14] MEDS: Z GUARD REMEDY 4 OZ OINT TP SCH ×2 (09:00→20:02)
[2018-12-14] MEDS: VIT A TP SCH ×2 (09:00→20:02)
[2018-12-14] MEDS: [UNRECOGNIZED DRUG - OTHER] TP SCH ×2 (09:00→20:02)
[2018-12-14] MEDS: CALCIUM CARBONATE 500 MG TAB.CHEW GT SCH ×2 (09:00→17:21)
[2018-12-14] MEDS: MULTIVIT W/MINERALS 1 TAB TABLET GT SCH (09:00)
[2018-12-14] MEDS: DOCUSATE SODIUM LIQ 100 MG/10 ML UDC GT SCH (09:00)
[2018-12-14] MEDS: FERROUS SULFATE - FOR SA ONLY 330 MG/7.5 ML UDC GT SCH ×2 (09:00→17:21)
[2018-12-14] MEDS: HYDROGEN PEROXIDE 480 ML BOTTLE TP SCH ×2 (09:00→20:02)
[2018-12-14] MEDS: TRILEPTAL GT SCH ×2 (09:00→20:02)
[2018-12-14] MEDS: HYDROGEN PEROXIDE 480 ML BOTTLE TP PRN (15:31)
--- NOTE | 2018-12-14 17:00 | NUR ---
Seen by Dr Ho. She reviewed pt's CT of abdomen and pelvis. She said pt is inoperable and she will not be doing any workups. No new order.
[2018-12-14] MEDS: GLUCERNA 1.2 1,000 ML BOTTLE GT PRN (18:15)
--- NOTE | 2018-12-14 18:38 | NUR ---
Called pt's sister to notify her that Dr Ho saw pt but she did not answer. Left message.
[2018-12-14] MEDS: ASCORBIC ACID 500 MG TABLET GT SCH (20:02)
[2018-12-14 20:53] VITALS: BP 130/71
[2018-12-15] MEDS: ALBUTEROL FS 2.5 MG/3 ML VIAL.NEB NEB SCH ×4 (01:23→19:27)
[2018-12-15] MEDS: METOCLOPRAMIDE HCL 10 MG/10 ML UDC GT SCH ×3 (05:06→20:49)
[2018-12-15] MEDS: DEXILANT 30 MG GT SCH (05:06)
[2018-12-15] MEDS: BLOOD SUGAR DIAGNOSTIC 1 EACH STRIP IN SCH ×2 (05:06→18:18)
[2018-12-15] MEDS: GABAPENTIN 300 MG CAPSULE GT SCH ×3 (05:06→20:48)
[2018-12-15] MEDS: INSULIN REGULAR, HUMAN 100 UNIT/ML 3 ML VIAL SQ PRN (05:07)
[2018-12-15 07:46] VITALS: BP 121/52
[2018-12-15] MEDS: LEVETIRACETAM SOL (5 ML) 100 MG/ML UDC GT SCH ×2 (08:58→20:48)
[2018-12-15] MEDS: FERROUS SULFATE - FOR SA ONLY 330 MG/7.5 ML UDC GT SCH ×2 (08:58→16:34)
[2018-12-15] MEDS: DOCUSATE SODIUM LIQ 100 MG/10 ML UDC GT SCH (08:58)
[2018-12-15] MEDS: SIMETHICONE SUSP 40 MG/0.6 ML BOTTLE GT SCH ×2 (08:58→20:48)
[2018-12-15] MEDS: ACIDOPHILUS/BULGARICUS 1 EACH TAB.CHEW GT SCH ×2 (08:58→16:34)
[2018-12-15] MEDS: PROSOURCE DIETARY LIQUID 30 ML LIQUID GT SCH ×2 (08:59→16:34)
[2018-12-15] MEDS: CALCIUM CARBONATE 500 MG TAB.CHEW GT SCH ×2 (08:59→16:34)
[2018-12-15] MEDS: MULTIVIT W/MINERALS 1 TAB TABLET GT SCH (08:59)
[2018-12-15] MEDS: TRILEPTAL GT SCH ×2 (08:59→20:49)
[2018-12-15] MEDS: VIT A TP SCH ×2 (09:43→20:49)
[2018-12-15] MEDS: Z GUARD REMEDY 4 OZ OINT TP SCH ×2 (09:43→20:49)
[2018-12-15] MEDS: HYDROGEN PEROXIDE 480 ML BOTTLE TP SCH ×2 (09:43→20:36)
[2018-12-15] MEDS: [UNRECOGNIZED DRUG - OTHER] TP SCH ×2 (09:43→20:49)
--- NOTE | 2018-12-15 12:20 | NUR ---
Resident's sister visited and acknowledged she received the message from CN regarding consult by Dr. Garcia OB-DESIGN AND SALES CONSULTANT. Informed family that per Dr. Garcia, patient is not a candidate for surgery and further work up is not indicated at this time and if this is a fibroid there has been no growth to suggest it is malignant. Appreciated the information.
[2018-12-15] MEDS: PIPERACILLIN /TAZOBACTAM 3.375 G in IV D5W 100 ML IV SCH ×2 (13:20→21:03)
[2018-12-15] MEDS: IV 1/2NS 1000 ML 1,000 ML IV PRN (13:22)
[2018-12-15] MEDS: GLUCERNA 1.2 1,000 ML BOTTLE GT PRN (13:23)
--- NOTE | 2018-12-15 15:09 | NUR ---
STEPHEN called and spoke with pt.'s sister, Beckie Chu [phone] to introduce herself as the new Subacute SW. Beckie was receptive to speaking with STEPHEN and expressed contentment. STEPHEN invited Beckie to attend the IDT meeting taking place this Thursday, December 17, 2018 from 12:30pm- 1:30pm. Beckie stated that she will be in attendance to participate in IDT meeting this Monday, December 17, 2018 from 12:30pm- 1:30pm.
[2018-12-15 20:34] VITALS: BP 127/70
[2018-12-15] MEDS: ASCORBIC ACID 500 MG TABLET GT SCH (20:49)
[2018-12-16] MEDS: ALBUTEROL FS 2.5 MG/3 ML VIAL.NEB NEB SCH ×4 (01:20→19:40)
[2018-12-16] MEDS: IV 1/2NS 1000 ML 1,000 ML IV PRN ×2 (02:11→15:43)
[2018-12-16] MEDS: PIPERACILLIN /TAZOBACTAM 3.375 G in IV D5W 100 ML IV SCH ×3 (05:04→21:09)
[2018-12-16] MEDS: BLOOD SUGAR DIAGNOSTIC 1 EACH STRIP IN SCH ×2 (05:42→18:15)
[2018-12-16] MEDS: DEXILANT 30 MG GT SCH (05:42)
[2018-12-16] MEDS: METOCLOPRAMIDE HCL 10 MG/10 ML UDC GT SCH ×3 (05:42→20:13)
[2018-12-16] MEDS: INSULIN REGULAR, HUMAN 100 UNIT/ML 3 ML VIAL SQ PRN ×2 (05:42→18:15)
[2018-12-16] MEDS: GABAPENTIN 300 MG CAPSULE GT SCH ×3 (05:42→20:12)
[2018-12-16 07:41] VITALS: BP 119/78
[2018-12-16] MEDS: MULTIVIT W/MINERALS 1 TAB TABLET GT SCH (08:43)
[2018-12-16] MEDS: TRILEPTAL GT SCH ×2 (08:43→20:13)
[2018-12-16] MEDS: ACIDOPHILUS/BULGARICUS 1 EACH TAB.CHEW GT SCH ×2 (08:43→17:04)
[2018-12-16] MEDS: SIMETHICONE SUSP 40 MG/0.6 ML BOTTLE GT SCH ×2 (08:43→20:08)
[2018-12-16] MEDS: DOCUSATE SODIUM LIQ 100 MG/10 ML UDC GT SCH (08:43)
[2018-12-16] MEDS: LEVETIRACETAM SOL (5 ML) 100 MG/ML UDC GT SCH ×2 (08:43→20:12)
[2018-12-16] MEDS: CALCIUM CARBONATE 500 MG TAB.CHEW GT SCH ×2 (08:43→17:04)
[2018-12-16] MEDS: FERROUS SULFATE - FOR SA ONLY 330 MG/7.5 ML UDC GT SCH ×2 (08:43→17:04)
[2018-12-16] MEDS: PROSOURCE DIETARY LIQUID 30 ML LIQUID GT SCH ×2 (08:43→17:04)
[2018-12-16] MEDS: [UNRECOGNIZED DRUG - OTHER] TP SCH ×2 (09:00→20:26)
[2018-12-16] MEDS: Z GUARD REMEDY 4 OZ OINT TP SCH ×2 (09:00→20:27)
[2018-12-16] MEDS: VIT A TP SCH ×2 (09:00→20:26)
[2018-12-16] MEDS: HYDROGEN PEROXIDE 480 ML BOTTLE TP SCH ×2 (09:00→21:00)
--- NOTE | 2018-12-16 11:00 | NUR ---
Left a message to Dr. Luis if he wants any follow-up labs. Last CBC and BMP done on 12/13/18. BUN 44, Creat 2.3, Na141, patient currently on 06/09 NS at 80cc/hr. Awaiting for call. back
[2018-12-16] MEDS: GLUCERNA 1.2 1,000 ML BOTTLE GT PRN (11:42)
--- NOTE | 2018-12-16 12:30 | NUR ---
Seen and examined by Dr. Luis, resident's sister at bedside NNO given except for follow-up labs in AM, CBC and BMP. Order carried out.
[2018-12-16] MEDS: ASCORBIC ACID 500 MG TABLET GT SCH (20:13)
[2018-12-16 20:28] VITALS: BP 135/79
--- NOTE | 2018-12-16 21:15 | NUR ---
RT NOTE PATIENT RECEIVED TRACHED ON MECHANICAL VENTILATION. AMBU BAG/BACK UP @ BEDSIDE. VENT PLUGGED TO RED OUTLET. TX GIVEN, NO ADVERSE REACTIONS NOTED. SX DONE, TRACH SECURED AND PATENT. ALARMS ON AND AUDIBLE. PATIENT STABLE. WILL MONITOR. Addendum: 12/16/18 at 2117 by BRIEN NEAL RT Amended: Links added.
[2018-12-17] MEDS: ALBUTEROL FS 2.5 MG/3 ML VIAL.NEB NEB SCH ×4 (01:36→19:15)
[2018-12-17] MEDS: IV 1/2NS 1000 ML 1,000 ML IV PRN (03:42)
[2018-12-17] MEDS: METOCLOPRAMIDE HCL 10 MG/10 ML UDC GT SCH ×3 (04:20→20:53)
[2018-12-17] MEDS: GABAPENTIN 300 MG CAPSULE GT SCH ×3 (04:20→20:52)
[2018-12-17] MEDS: PIPERACILLIN /TAZOBACTAM 3.375 G in IV D5W 100 ML IV SCH ×3 (05:06→21:05)
[2018-12-17] MEDS: BLOOD SUGAR DIAGNOSTIC 1 EACH STRIP IN SCH ×3 (05:28→17:18)
[2018-12-17] MEDS: DEXILANT 30 MG GT SCH (05:28)
[2018-12-17] MEDS: INSULIN REGULAR, HUMAN 100 UNIT/ML 3 ML VIAL SQ PRN ×2 (05:30→17:19)
[2018-12-17 06:17] LABS: BASOPHILS # (AUTO) 0.1 /CMM (0.0-0.2); BASOPHILS % (AUTO) 0.8 % (0.0-2.0); HEMATOCRIT 23 % (33-45); HEMOGLOBIN 7.6 g/dL (11.5-14.8); LYMPHOCYTES # (AUTO) 2.8 /CMM (0.8-4.8); LYMPHOCYTES % (AUTO) 31.7 % (20.0-44.0); MEAN CORPUSCULAR HGB CONC 34 g/dl (31.0-36.0); MEAN CORPUSCULAR VOLUME 95 fL (82-100); MONOCYTES % (AUTO) 10.8 % (2.0-12.0); NEUTROPHILS # (AUTO) 4.6 /CMM (1.8-8.9); NEUTROPHILS % (AUTO) 51.7 % (43.0-81.0); PLATELET COUNT (AUTO) 397 /CMM (150-450); RED BLOOD CELL COUNT(AUTO) 2.39 MIL/uL (4.0-5.2); WHITE BLOOD COUNT (AUTO) 8.8 K/uL (4.3-11.0)
[2018-12-17 06:41] LABS: CALCIUM, SERUM 9.2 mg/dL (8.5-10.1); CREATININE 2.1 mg/dL (0.6-1.3); POTASSIUM 3.6 mmol/L (3.5-5.1)
[2018-12-17 07:53] VITALS: BP 125/71
[2018-12-17] MEDS: SIMETHICONE SUSP 40 MG/0.6 ML BOTTLE GT SCH ×2 (08:00→20:52)
[2018-12-17] MEDS: HYDROGEN PEROXIDE 480 ML BOTTLE TP SCH ×2 (09:00→21:00)
[2018-12-17] MEDS: CALCIUM CARBONATE 500 MG TAB.CHEW GT SCH ×2 (09:55→16:52)
[2018-12-17] MEDS: ACIDOPHILUS/BULGARICUS 1 EACH TAB.CHEW GT SCH ×2 (09:55→16:52)
[2018-12-17] MEDS: FERROUS SULFATE - FOR SA ONLY 330 MG/7.5 ML UDC GT SCH ×2 (09:55→16:52)
[2018-12-17] MEDS: [UNRECOGNIZED DRUG - OTHER] TP SCH ×2 (09:55→20:53)
[2018-12-17] MEDS: PROSOURCE DIETARY LIQUID 30 ML LIQUID GT SCH ×2 (09:55→16:52)
[2018-12-17] MEDS: LEVETIRACETAM SOL (5 ML) 100 MG/ML UDC GT SCH ×2 (09:55→20:52)
[2018-12-17] MEDS: MULTIVIT W/MINERALS 1 TAB TABLET GT SCH (09:55)
[2018-12-17] MEDS: DOCUSATE SODIUM LIQ 100 MG/10 ML UDC GT SCH (09:55)
[2018-12-17] MEDS: TRILEPTAL GT SCH ×2 (09:55→20:53)
[2018-12-17] MEDS: Z GUARD REMEDY 4 OZ OINT TP SCH ×2 (09:55→20:53)
[2018-12-17] MEDS: VIT A TP SCH ×2 (09:55→20:53)
[2018-12-17] MEDS: GLUCERNA 1.2 1,000 ML BOTTLE GT PRN (12:25)
--- NOTE | 2018-12-17 13:55 | NUR ---
INTERDISCIPLINARY PlaN OF CARE CONFERENCE was held today. Resident's sister, Beckie Chu ([phone]) attended today's IDT meeting and participated. and interdisciplinary team discussed the current plan of care in detail. Current orders as well as treatments and medications were reviewed. Charge Nurse reported that the patient was seen by [facility] neurologist for thyroid abnormality. Per Charge nurse, the findings are not malignant and surgery will not be needed. Per charge nurse the patient has been discontinued from isolation. The IDT answered all of Beckie's questions and concerns. Per Beckie, she is very satisfied with current treatment. Addendum: 12/20/18 at 1611 by JOSE GUADALUPE MICTHELL Neurologist saw pt. for seizure and medication was adjusted. Patient was seen by gyne and no new orders.
--- NOTE | 2018-12-17 15:40 | NUR ---
Reported to Dr. Felix CBC and BMP result, with new order to change IVF to NS, same rate at 80 cc/hr. due to elevated BUN 39 and Creat 2.1, Na+ 137. Resident's sister Beckie aware of the new order.
--- NOTE | 2018-12-17 17:20 | NUR ---
RT NOTE PT REMAINS MECHANICALLY VENTILATED VIA CUFFED TRACHEOSTOMY TUBE. CUFF INFLATED. TRACH TUBE MIDLINE AND SECURE. VENTILATOR SETTINGS PRESCRIBED. ALARMS SET PER PROTOCOL AND AUDIBLE. AMBU BAG AT BED SIDE. VENT PLUGGED IN TO RED OUTLET. NO DISTRESS NOTED. Addendum: 12/17/18 at 1721 by MAXI BRADY RT Amended: Links added.
[2018-12-17] MEDS: IV NS 0.9% 1,000 ML IV PRN (17:36)
[2018-12-17 19:53] VITALS: BP 128/74
[2018-12-17] MEDS: ASCORBIC ACID 500 MG TABLET GT SCH (20:53)
[2018-12-18] MEDS: ALBUTEROL FS 2.5 MG/3 ML VIAL.NEB NEB SCH ×4 (00:37→19:45)
[2018-12-18] MEDS: GLUCERNA 1.2 1,000 ML BOTTLE GT PRN ×2 (00:52→17:48)
[2018-12-18] MEDS: DEXILANT 30 MG GT SCH (05:07)
[2018-12-18] MEDS: GABAPENTIN 300 MG CAPSULE GT SCH ×3 (05:07→20:42)
[2018-12-18] MEDS: METOCLOPRAMIDE HCL 10 MG/10 ML UDC GT SCH ×3 (05:07→20:42)
[2018-12-18] MEDS: PIPERACILLIN /TAZOBACTAM 3.375 G in IV D5W 100 ML IV SCH ×3 (05:18→21:00)
[2018-12-18] MEDS: BLOOD SUGAR DIAGNOSTIC 1 EACH STRIP IN SCH ×2 (05:51→17:47)
[2018-12-18] MEDS: INSULIN REGULAR, HUMAN 100 UNIT/ML 3 ML VIAL SQ PRN ×2 (05:52→17:47)
[2018-12-18 07:53] VITALS: BP 108/55
[2018-12-18] MEDS: SIMETHICONE SUSP 40 MG/0.6 ML BOTTLE GT SCH ×2 (08:00→20:42)
[2018-12-18] MEDS: HYDROGEN PEROXIDE 480 ML BOTTLE TP SCH ×2 (09:00→21:00)
[2018-12-18] MEDS: ACIDOPHILUS/BULGARICUS 1 EACH TAB.CHEW GT SCH ×2 (09:58→17:47)
[2018-12-18] MEDS: PROSOURCE DIETARY LIQUID 30 ML LIQUID GT SCH ×2 (09:58→17:47)
[2018-12-18] MEDS: MULTIVIT W/MINERALS 1 TAB TABLET GT SCH (09:58)
[2018-12-18] MEDS: DOCUSATE SODIUM LIQ 100 MG/10 ML UDC GT SCH (09:58)
[2018-12-18] MEDS: CALCIUM CARBONATE 500 MG TAB.CHEW GT SCH ×2 (09:58→17:47)
[2018-12-18] MEDS: FERROUS SULFATE - FOR SA ONLY 330 MG/7.5 ML UDC GT SCH ×2 (09:58→17:47)
[2018-12-18] MEDS: TRILEPTAL GT SCH ×2 (09:58→20:42)
[2018-12-18] MEDS: LEVETIRACETAM SOL (5 ML) 100 MG/ML UDC GT SCH ×2 (09:58→20:42)
[2018-12-18] MEDS: Z GUARD REMEDY 4 OZ OINT TP SCH ×2 (09:59→21:13)
[2018-12-18] MEDS: [UNRECOGNIZED DRUG - OTHER] TP SCH ×2 (09:59→21:13)
[2018-12-18] MEDS: VIT A TP SCH ×2 (09:59→21:13)
[2018-12-18] MEDS: IV NS 0.9% 1,000 ML IV PRN (18:52)
[2018-12-18] MEDS: ASCORBIC ACID 500 MG TABLET GT SCH (20:42)
[2018-12-18 20:43] VITALS: BP 126/71
[2018-12-19] MEDS: ALBUTEROL FS 2.5 MG/3 ML VIAL.NEB NEB SCH ×4 (02:29→19:26)
[2018-12-19] MEDS: PIPERACILLIN /TAZOBACTAM 3.375 G in IV D5W 100 ML IV SCH ×3 (05:00→21:55)
[2018-12-19] MEDS: METOCLOPRAMIDE HCL 10 MG/10 ML UDC GT SCH ×3 (05:27→20:33)
[2018-12-19] MEDS: GABAPENTIN 300 MG CAPSULE GT SCH ×3 (05:27→20:33)
[2018-12-19] MEDS: DEXILANT 30 MG GT SCH (05:27)
[2018-12-19] MEDS: INSULIN REGULAR, HUMAN 100 UNIT/ML 3 ML VIAL SQ PRN ×2 (05:53→17:49)
[2018-12-19] MEDS: BLOOD SUGAR DIAGNOSTIC 1 EACH STRIP IN SCH ×2 (05:53→17:48)
[2018-12-19 07:26] VITALS: BP 123/56
[2018-12-19] MEDS: SIMETHICONE SUSP 40 MG/0.6 ML BOTTLE GT SCH ×2 (08:00→20:33)
--- NOTE | 2018-12-19 08:27 | NUR ---
RT NOTE PT REC'D TRACHED ON MECHANICAL VENT ON CHARTED SETTINGS. NO RESP DISTRESS OR SOB NOTED AT THIS TIME. TRACH IS PATENT AND SECURED. SX'D FOR MODERATE AMOUNT OF PALE YELLOW SECRETIONS. ALARMS ARE SET AND AUDIBLE. VENT PLUGGED INTO RED OUTLET. AMBU BAG BEDSIDE. Addendum: 12/19/18 at 0827 by MARCO FRANCOIS RT Amended: Links added.
[2018-12-19] MEDS: HYDROGEN PEROXIDE 480 ML BOTTLE TP SCH ×2 (09:00→21:00)
[2018-12-19] MEDS: TRILEPTAL GT SCH ×2 (09:54→20:33)
[2018-12-19] MEDS: VIT A TP SCH ×2 (09:54→20:33)
[2018-12-19] MEDS: PROSOURCE DIETARY LIQUID 30 ML LIQUID GT SCH ×2 (09:54→17:48)
[2018-12-19] MEDS: LEVETIRACETAM SOL (5 ML) 100 MG/ML UDC GT SCH ×2 (09:54→20:33)
[2018-12-19] MEDS: ACIDOPHILUS/BULGARICUS 1 EACH TAB.CHEW GT SCH ×2 (09:54→17:48)
[2018-12-19] MEDS: FERROUS SULFATE - FOR SA ONLY 330 MG/7.5 ML UDC GT SCH ×2 (09:54→17:48)
[2018-12-19] MEDS: [UNRECOGNIZED DRUG - OTHER] TP SCH ×2 (09:54→20:33)
[2018-12-19] MEDS: DOCUSATE SODIUM LIQ 100 MG/10 ML UDC GT SCH (09:54)
[2018-12-19] MEDS: MULTIVIT W/MINERALS 1 TAB TABLET GT SCH (09:54)
[2018-12-19] MEDS: CALCIUM CARBONATE 500 MG TAB.CHEW GT SCH ×2 (09:54→17:48)
[2018-12-19] MEDS: Z GUARD REMEDY 4 OZ OINT TP SCH ×2 (09:55→20:34)
[2018-12-19] MEDS: IV NS 0.9% 1,000 ML IV PRN (18:49)
[2018-12-19 19:59] VITALS: BP 116/72
[2018-12-19] MEDS: ASCORBIC ACID 500 MG TABLET GT SCH (20:33)
[2018-12-20] MEDS: GLUCERNA 1.2 1,000 ML BOTTLE GT PRN (00:50)
[2018-12-20] MEDS: ALBUTEROL FS 2.5 MG/3 ML VIAL.NEB NEB SCH ×4 (01:02→20:05)
[2018-12-20] MEDS: PIPERACILLIN /TAZOBACTAM 3.375 G in IV D5W 100 ML IV SCH ×3 (05:07→21:00)
[2018-12-20] MEDS: GABAPENTIN 300 MG CAPSULE GT SCH ×3 (05:08→20:08)
[2018-12-20] MEDS: METOCLOPRAMIDE HCL 10 MG/10 ML UDC GT SCH ×3 (05:08→20:08)
[2018-12-20] MEDS: DEXILANT 30 MG GT SCH (05:09)
[2018-12-20] MEDS: BLOOD SUGAR DIAGNOSTIC 1 EACH STRIP IN SCH ×2 (05:55→17:11)
[2018-12-20 07:30] VITALS: BP 125/55
[2018-12-20 07:35] LABS: CALCIUM, SERUM 8.8 mg/dL (8.5-10.1); CREATININE 2.1 mg/dL (0.6-1.3); POTASSIUM 3.7 mmol/L (3.5-5.1)
[2018-12-20] MEDS: IV NS 0.9% 1,000 ML IV PRN ×2 (07:55→21:00)
[2018-12-20] MEDS: SIMETHICONE SUSP 40 MG/0.6 ML BOTTLE GT SCH ×2 (08:00→20:08)
[2018-12-20] MEDS: HYDROGEN PEROXIDE 480 ML BOTTLE TP SCH ×2 (09:00→20:05)
[2018-12-20] MEDS: LEVETIRACETAM SOL (5 ML) 100 MG/ML UDC GT SCH ×2 (09:19→20:08)
[2018-12-20] MEDS: DOCUSATE SODIUM LIQ 100 MG/10 ML UDC GT SCH (09:19)
[2018-12-20] MEDS: ACIDOPHILUS/BULGARICUS 1 EACH TAB.CHEW GT SCH ×2 (09:19→17:11)
[2018-12-20] MEDS: [UNRECOGNIZED DRUG - OTHER] TP SCH ×2 (09:19→20:08)
[2018-12-20] MEDS: VIT A TP SCH ×2 (09:19→20:08)
[2018-12-20] MEDS: Z GUARD REMEDY 4 OZ OINT TP SCH ×2 (09:19→20:08)
[2018-12-20] MEDS: PROSOURCE DIETARY LIQUID 30 ML LIQUID GT SCH ×2 (09:19→17:11)
[2018-12-20] MEDS: MULTIVIT W/MINERALS 1 TAB TABLET GT SCH (09:19)
[2018-12-20] MEDS: CALCIUM CARBONATE 500 MG TAB.CHEW GT SCH ×2 (09:19→17:11)
[2018-12-20] MEDS: TRILEPTAL GT SCH ×2 (09:19→20:08)
[2018-12-20] MEDS: FERROUS SULFATE - FOR SA ONLY 330 MG/7.5 ML UDC GT SCH ×2 (09:19→17:11)
--- NOTE | 2018-12-20 15:33 | NUR ---
Neurologist saw pt. for seizure and medication was adjusted. Patient was seen by gyne and no new orders.
[2018-12-20] MEDS: INSULIN REGULAR, HUMAN 100 UNIT/ML 3 ML VIAL SQ PRN (17:12)
[2018-12-20] MEDS: ASCORBIC ACID 500 MG TABLET GT SCH (20:08)
[2018-12-20 20:12] VITALS: BP 126/49
[2018-12-21] MEDS: ALBUTEROL FS 2.5 MG/3 ML VIAL.NEB NEB SCH ×4 (01:05→19:21)
--- NOTE | 2018-12-21 04:19 | NUR ---
PATIENT RECEIVED ON TRACH TO VENT WITH SETTINGS OF AC 16, 550 VT, 30%, +5. SUCTIONED WITH LAVAGE FOR MINIMAL, THIN, WHITE-CREAM SECRETIONS. GIVEN IN-LINE TREATMENTS WITH NO ADVERSE REACTIONS. AMBU BAG AT BEDSIDE. VENT ALARM AUDIBLE AND VISIBLE. VENT CONNECTED IN RED OUTLET. Addendum: 12/21/18 at 0422 by SARA MOLINA RT Amended: Links added.
[2018-12-21] MEDS: PIPERACILLIN /TAZOBACTAM 3.375 G in IV D5W 100 ML IV SCH ×3 (05:00→21:00)
[2018-12-21] MEDS: GABAPENTIN 300 MG CAPSULE GT SCH ×3 (05:12→20:07)
[2018-12-21] MEDS: BLOOD SUGAR DIAGNOSTIC 1 EACH STRIP IN SCH ×2 (05:14→17:31)
[2018-12-21] MEDS: DEXILANT 30 MG GT SCH (05:14)
[2018-12-21] MEDS: INSULIN REGULAR, HUMAN 100 UNIT/ML 3 ML VIAL SQ PRN (05:14)
[2018-12-21] MEDS: METOCLOPRAMIDE HCL 10 MG/10 ML UDC GT SCH ×3 (05:14→20:08)
[2018-12-21] MEDS: HYDROGEN PEROXIDE 480 ML BOTTLE TP SCH ×2 (06:55→19:21)
[2018-12-21 07:42] VITALS: BP 115/59
[2018-12-21] MEDS: ACIDOPHILUS/BULGARICUS 1 EACH TAB.CHEW GT SCH ×2 (08:01→16:30)
[2018-12-21] MEDS: FERROUS SULFATE - FOR SA ONLY 330 MG/7.5 ML UDC GT SCH ×2 (08:01→16:30)
[2018-12-21] MEDS: PROSOURCE DIETARY LIQUID 30 ML LIQUID GT SCH ×2 (08:01→16:30)
[2018-12-21] MEDS: TRILEPTAL GT SCH ×2 (08:01→20:07)
[2018-12-21] MEDS: MULTIVIT W/MINERALS 1 TAB TABLET GT SCH (08:01)
[2018-12-21] MEDS: CALCIUM CARBONATE 500 MG TAB.CHEW GT SCH ×2 (08:01→16:30)
[2018-12-21] MEDS: LEVETIRACETAM SOL (5 ML) 100 MG/ML UDC GT SCH ×2 (08:01→20:07)
[2018-12-21] MEDS: SIMETHICONE SUSP 40 MG/0.6 ML BOTTLE GT SCH ×2 (08:01→20:05)
[2018-12-21] MEDS: DOCUSATE SODIUM LIQ 100 MG/10 ML UDC GT SCH (08:01)
[2018-12-21] MEDS: VIT A TP SCH ×2 (08:02→20:08)
[2018-12-21] MEDS: [UNRECOGNIZED DRUG - OTHER] TP SCH ×2 (08:02→20:08)
[2018-12-21] MEDS: Z GUARD REMEDY 4 OZ OINT TP SCH ×2 (08:02→20:08)
--- NOTE | 2018-12-21 08:12 | NUR ---
RT PATIENT REC'D TRACHED ON [facility] VENT APRIL WELL. PATIENT SUCTIONED WITH SMALL AMT OF PALE SEMITHICK SECRETIONS. TRACH SECURE AND PATENT. INNER CANULA CHANGED. VENT ALARMS CHECKED + AUDIBLE. BACK UP TRACH AND AMBU BAG AT [facility]. PATIENT IN NO DISTRESS AT THIS TIME. CONT CURRENT PLAN OF CARE. Addendum: 12/21/18 at 1451 by ELIZABETH CAPONE RT Amended: Links added.
--- NOTE | 2018-12-21 09:00 | NUR ---
Seen and examined by Dr. Felix, no new order made and carried out.
[2018-12-21] MEDS: GLUCERNA 1.2 1,000 ML BOTTLE GT PRN (14:24)
[2018-12-21] MEDS: IV NS 0.9% 1,000 ML IV PRN (17:17)
--- NOTE | 2018-12-21 17:30 | NUR ---
Noted that midline catheter was pulled out correction. Midline discontinued per MD order. No bleeding noted, no s/s of pain. Inserted peripheral line on left foot Sister Beckie Chu informed.
[2018-12-21] MEDS: ASCORBIC ACID 500 MG TABLET GT SCH (20:08)
[2018-12-21 20:56] VITALS: BP 135/79
[2018-12-22] MEDS: ALBUTEROL FS 2.5 MG/3 ML VIAL.NEB NEB SCH ×4 (01:18→19:37)
[2018-12-22] MEDS: PIPERACILLIN /TAZOBACTAM 3.375 G in IV D5W 100 ML IV SCH ×3 (05:00→21:03)
[2018-12-22] MEDS: METOCLOPRAMIDE HCL 10 MG/10 ML UDC GT SCH ×3 (05:08→20:00)
[2018-12-22] MEDS: GLUCERNA 1.2 1,000 ML BOTTLE GT PRN (05:08)
[2018-12-22] MEDS: GABAPENTIN 300 MG CAPSULE GT SCH ×3 (05:08→20:00)
[2018-12-22] MEDS: DEXILANT 30 MG GT SCH (05:09)
[2018-12-22] MEDS: INSULIN REGULAR, HUMAN 100 UNIT/ML 3 ML VIAL SQ PRN (05:09)
[2018-12-22] MEDS: BLOOD SUGAR DIAGNOSTIC 1 EACH STRIP IN SCH ×2 (05:09→18:10)
[2018-12-22 07:56] VITALS: BP 122/68
[2018-12-22] MEDS: MULTIVIT W/MINERALS 1 TAB TABLET GT SCH (08:07)
[2018-12-22] MEDS: TRILEPTAL GT SCH ×2 (08:07→20:00)
[2018-12-22] MEDS: VIT A TP SCH ×2 (08:07→20:01)
[2018-12-22] MEDS: CALCIUM CARBONATE 500 MG TAB.CHEW GT SCH ×2 (08:07→17:00)
[2018-12-22] MEDS: ACIDOPHILUS/BULGARICUS 1 EACH TAB.CHEW GT SCH ×2 (08:07→17:00)
[2018-12-22] MEDS: Z GUARD REMEDY 4 OZ OINT TP SCH ×2 (08:07→20:01)
[2018-12-22] MEDS: DOCUSATE SODIUM LIQ 100 MG/10 ML UDC GT SCH (08:07)
[2018-12-22] MEDS: LEVETIRACETAM SOL (5 ML) 100 MG/ML UDC GT SCH ×2 (08:07→20:00)
[2018-12-22] MEDS: [UNRECOGNIZED DRUG - OTHER] TP SCH ×2 (08:07→20:01)
[2018-12-22] MEDS: PROSOURCE DIETARY LIQUID 30 ML LIQUID GT SCH ×2 (08:07→17:00)
[2018-12-22] MEDS: FERROUS SULFATE - FOR SA ONLY 330 MG/7.5 ML UDC GT SCH ×2 (08:07→17:00)
[2018-12-22] MEDS: SIMETHICONE SUSP 40 MG/0.6 ML BOTTLE GT SCH ×2 (08:07→20:00)
[2018-12-22] MEDS: HYDROGEN PEROXIDE 480 ML BOTTLE TP SCH ×2 (08:36→21:56)
--- NOTE | 2018-12-22 10:45 | NUR ---
Seen and examined by Dr. Luis with new orders and carried out. D/C 0.9 IV hydration. Repeat CBC, BMP on 12/23/18. Sister Beckie informed of new orders.
[2018-12-22] MEDS: ASCORBIC ACID 500 MG TABLET GT SCH (20:01)
[2018-12-22 20:41] VITALS: BP 133/79
[2018-12-23] MEDS: ALBUTEROL FS 2.5 MG/3 ML VIAL.NEB NEB SCH ×4 (01:55→19:47)
[2018-12-23] MEDS: GABAPENTIN 300 MG CAPSULE GT SCH ×3 (05:01→21:11)
[2018-12-23] MEDS: INSULIN REGULAR, HUMAN 100 UNIT/ML 3 ML VIAL SQ PRN (05:02)
[2018-12-23] MEDS: DEXILANT 30 MG GT SCH (05:02)
[2018-12-23] MEDS: METOCLOPRAMIDE HCL 10 MG/10 ML UDC GT SCH ×3 (05:02→21:11)
[2018-12-23] MEDS: BLOOD SUGAR DIAGNOSTIC 1 EACH STRIP IN SCH ×2 (05:02→18:31)
[2018-12-23] MEDS: GLUCERNA 1.2 1,000 ML BOTTLE GT PRN (05:11)
[2018-12-23] MEDS: PIPERACILLIN /TAZOBACTAM 3.375 G in IV D5W 100 ML IV SCH ×3 (05:15→21:01)
[2018-12-23 06:57] LABS: BASOPHILS # (AUTO) 0.1 /CMM (0.0-0.2); EOSINOPHILS % (AUTO) 7.5 % (0.0-6.0); HEMATOCRIT 22 % (33-45); HEMOGLOBIN 7.6 g/dL (11.5-14.8); LYMPHOCYTES # (AUTO) 2.6 /CMM (0.8-4.8); LYMPHOCYTES % (AUTO) 26.3 % (20.0-44.0); MEAN CORPUSCULAR HGB CONC 34 g/dl (31.0-36.0); MEAN CORPUSCULAR VOLUME 96 fL (82-100); MONOCYTES # (AUTO) 0.9 /CMM (0.1-1.30); NEUTROPHILS # (AUTO) 5.5 /CMM (1.8-8.9); NEUTROPHILS % (AUTO) 56.2 % (43.0-81.0); PLATELET COUNT (AUTO) 324 /CMM (150-450); RED BLOOD CELL COUNT(AUTO) 2.31 MIL/uL (4.0-5.2); WHITE BLOOD COUNT (AUTO) 9.8 K/uL (4.3-11.0)
[2018-12-23 07:03] LABS: CALCIUM, SERUM 9.1 mg/dL (8.5-10.1); CREATININE 2.1 mg/dL (0.6-1.3); POTASSIUM 3.8 mmol/L (3.5-5.1)
[2018-12-23 07:34] VITALS: BP 125/64
[2018-12-23] MEDS: SIMETHICONE SUSP 40 MG/0.6 ML BOTTLE GT SCH ×2 (08:00→20:00)
[2018-12-23] MEDS: HYDROGEN PEROXIDE 480 ML BOTTLE TP SCH ×2 (09:00→21:54)
[2018-12-23] MEDS: FERROUS SULFATE - FOR SA ONLY 330 MG/7.5 ML UDC GT SCH ×2 (09:51→17:00)
[2018-12-23] MEDS: VIT A TP SCH ×2 (09:51→21:12)
[2018-12-23] MEDS: TRILEPTAL GT SCH ×2 (09:51→21:11)
[2018-12-23] MEDS: ACIDOPHILUS/BULGARICUS 1 EACH TAB.CHEW GT SCH ×2 (09:51→17:00)
[2018-12-23] MEDS: MULTIVIT W/MINERALS 1 TAB TABLET GT SCH (09:51)
[2018-12-23] MEDS: [UNRECOGNIZED DRUG - OTHER] TP SCH ×2 (09:51→21:12)
[2018-12-23] MEDS: CALCIUM CARBONATE 500 MG TAB.CHEW GT SCH ×2 (09:51→17:00)
[2018-12-23] MEDS: DOCUSATE SODIUM LIQ 100 MG/10 ML UDC GT SCH (09:51)
[2018-12-23] MEDS: PROSOURCE DIETARY LIQUID 30 ML LIQUID GT SCH ×2 (09:51→17:00)
[2018-12-23] MEDS: LEVETIRACETAM SOL (5 ML) 100 MG/ML UDC GT SCH ×2 (09:51→21:11)
[2018-12-23] MEDS: Z GUARD REMEDY 4 OZ OINT TP SCH ×2 (09:52→21:12)
[2018-12-23 20:37] VITALS: BP 125/70
[2018-12-23] MEDS: ASCORBIC ACID 500 MG TABLET GT SCH (21:11)
[2018-12-24] MEDS: ALBUTEROL FS 2.5 MG/3 ML VIAL.NEB NEB SCH ×4 (01:19→19:07)
[2018-12-24] MEDS: PIPERACILLIN /TAZOBACTAM 3.375 G in IV D5W 100 ML IV SCH ×3 (05:02→20:58)
[2018-12-24] MEDS: BLOOD SUGAR DIAGNOSTIC 1 EACH STRIP IN SCH ×2 (05:22→18:02)
[2018-12-24] MEDS: METOCLOPRAMIDE HCL 10 MG/10 ML UDC GT SCH ×3 (05:22→20:58)
[2018-12-24] MEDS: GABAPENTIN 300 MG CAPSULE GT SCH ×3 (05:22→20:58)
[2018-12-24] MEDS: DEXILANT 30 MG GT SCH (05:22)
[2018-12-24] MEDS: GLUCERNA 1.2 1,000 ML BOTTLE GT PRN (05:23)
[2018-12-24] MEDS: INSULIN REGULAR, HUMAN 100 UNIT/ML 3 ML VIAL SQ PRN (05:23)
[2018-12-24 07:38] VITALS: BP 116/94
[2018-12-24 07:41] VITALS: BP 116/63
[2018-12-24] MEDS: SIMETHICONE SUSP 40 MG/0.6 ML BOTTLE GT SCH ×2 (08:00→20:58)
[2018-12-24] MEDS: PROSOURCE DIETARY LIQUID 30 ML LIQUID GT SCH ×2 (09:00→17:00)
[2018-12-24] MEDS: MULTIVIT W/MINERALS 1 TAB TABLET GT SCH (09:00)
[2018-12-24] MEDS: CALCIUM CARBONATE 500 MG TAB.CHEW GT SCH ×2 (09:00→17:00)
[2018-12-24] MEDS: [UNRECOGNIZED DRUG - OTHER] TP SCH ×2 (09:00→20:58)
[2018-12-24] MEDS: TRILEPTAL GT SCH ×2 (09:00→20:58)
[2018-12-24] MEDS: DOCUSATE SODIUM LIQ 100 MG/10 ML UDC GT SCH (09:00)
[2018-12-24] MEDS: ACIDOPHILUS/BULGARICUS 1 EACH TAB.CHEW GT SCH ×2 (09:00→17:00)
[2018-12-24] MEDS: LEVETIRACETAM SOL (5 ML) 100 MG/ML UDC GT SCH ×2 (09:00→20:58)
[2018-12-24] MEDS: VIT A TP SCH ×2 (09:00→20:58)
[2018-12-24] MEDS: HYDROGEN PEROXIDE 480 ML BOTTLE TP SCH ×3 (09:00→21:00)
[2018-12-24] MEDS: Z GUARD REMEDY 4 OZ OINT TP SCH ×2 (09:00→20:58)
[2018-12-24] MEDS: FERROUS SULFATE - FOR SA ONLY 330 MG/7.5 ML UDC GT SCH ×2 (09:00→17:00)
--- NOTE | 2018-12-24 09:48 | NUR ---
Late entry for 12/23/18 Seen by NAN Vargas. Relayed lab results to her. No new order.
[2018-12-24] MEDS: ASCORBIC ACID 500 MG TABLET GT SCH (20:58)
[2018-12-24 21:47] VITALS: BP 123/65
[2018-12-25] MEDS: ALBUTEROL FS 2.5 MG/3 ML VIAL.NEB NEB SCH ×4 (01:13→19:08)
[2018-12-25] MEDS: METOCLOPRAMIDE HCL 10 MG/10 ML UDC GT SCH ×3 (05:00→20:01)
[2018-12-25] MEDS: PIPERACILLIN /TAZOBACTAM 3.375 G in IV D5W 100 ML IV SCH ×3 (05:00→21:00)
[2018-12-25] MEDS: GABAPENTIN 300 MG CAPSULE GT SCH ×3 (05:00→20:02)
[2018-12-25] MEDS: DEXILANT 30 MG GT SCH (06:06)
[2018-12-25] MEDS: BLOOD SUGAR DIAGNOSTIC 1 EACH STRIP IN SCH ×2 (06:06→17:12)
[2018-12-25] MEDS: INSULIN REGULAR, HUMAN 100 UNIT/ML 3 ML VIAL SQ PRN (06:09)
[2018-12-25] MEDS: GLUCERNA 1.2 1,000 ML BOTTLE GT PRN ×2 (06:09→17:12)
[2018-12-25 07:39] VITALS: BP 116/60
[2018-12-25] MEDS: SIMETHICONE SUSP 40 MG/0.6 ML BOTTLE GT SCH ×2 (08:00→19:24)
[2018-12-25] MEDS: HYDROGEN PEROXIDE 480 ML BOTTLE TP SCH ×2 (09:00→20:01)
[2018-12-25] MEDS: CALCIUM CARBONATE 500 MG TAB.CHEW GT SCH ×2 (09:58→17:12)
[2018-12-25] MEDS: [UNRECOGNIZED DRUG - OTHER] TP SCH ×2 (09:58→20:01)
[2018-12-25] MEDS: Z GUARD REMEDY 4 OZ OINT TP SCH ×2 (09:58→20:01)
[2018-12-25] MEDS: DOCUSATE SODIUM LIQ 100 MG/10 ML UDC GT SCH (09:58)
[2018-12-25] MEDS: MULTIVIT W/MINERALS 1 TAB TABLET GT SCH (09:58)
[2018-12-25] MEDS: FERROUS SULFATE - FOR SA ONLY 330 MG/7.5 ML UDC GT SCH ×2 (09:58→17:12)
[2018-12-25] MEDS: LEVETIRACETAM SOL (5 ML) 100 MG/ML UDC GT SCH ×2 (09:58→20:03)
[2018-12-25] MEDS: ACIDOPHILUS/BULGARICUS 1 EACH TAB.CHEW GT SCH ×2 (09:58→17:12)
[2018-12-25] MEDS: PROSOURCE DIETARY LIQUID 30 ML LIQUID GT SCH ×2 (09:58→17:12)
[2018-12-25] MEDS: VIT A TP SCH ×2 (09:58→20:01)
[2018-12-25] MEDS: TRILEPTAL GT SCH ×2 (09:58→20:02)
--- NOTE | 2018-12-25 14:53 | NUR ---
RT NOTE PT REMAINS MECHANICALLY VENTILATED VIA CUFFED TRACHEOSTOMY TUBE. CUFF INFLATED. TRACH TUBE MIDLINE AND SECURE. VENTILATOR SETTINGS PRESCRIBED. ALARMS SET PER PROTOCOL AND AUDIBLE. VENT PLUGGED IN TO RED OUTLET. AMBU BAG AT BED SIDE. NO DISTRESS NOTED. Addendum: 12/25/18 at 1454 by MAXI BRADY RT Amended: Links added.
[2018-12-25] MEDS: ASCORBIC ACID 500 MG TABLET GT SCH (20:01)
[2018-12-25 21:05] VITALS: BP 137/76
[2018-12-26] MEDS: ALBUTEROL FS 2.5 MG/3 ML VIAL.NEB NEB SCH ×4 (01:33→19:31)
[2018-12-26] MEDS: METOCLOPRAMIDE HCL 10 MG/10 ML UDC GT SCH ×3 (04:28→21:15)
[2018-12-26] MEDS: GABAPENTIN 300 MG CAPSULE GT SCH ×3 (04:29→21:14)
[2018-12-26] MEDS: PIPERACILLIN /TAZOBACTAM 3.375 G in IV D5W 100 ML IV SCH ×2 (05:00→12:19)
[2018-12-26] MEDS: DEXILANT 30 MG GT SCH (05:05)
[2018-12-26] MEDS: BLOOD SUGAR DIAGNOSTIC 1 EACH STRIP IN SCH ×2 (05:23→18:18)
[2018-12-26 07:37] VITALS: BP 118/58
[2018-12-26] MEDS: SIMETHICONE SUSP 40 MG/0.6 ML BOTTLE GT SCH ×2 (08:31→20:00)
[2018-12-26] MEDS: DOCUSATE SODIUM LIQ 100 MG/10 ML UDC GT SCH (08:32)
[2018-12-26] MEDS: FERROUS SULFATE - FOR SA ONLY 330 MG/7.5 ML UDC GT SCH ×2 (08:32→17:34)
[2018-12-26] MEDS: LEVETIRACETAM SOL (5 ML) 100 MG/ML UDC GT SCH ×2 (08:32→21:14)
[2018-12-26] MEDS: ACIDOPHILUS/BULGARICUS 1 EACH TAB.CHEW GT SCH ×2 (08:33→17:34)
[2018-12-26] MEDS: TRILEPTAL GT SCH ×2 (08:33→21:15)
[2018-12-26] MEDS: PROSOURCE DIETARY LIQUID 30 ML LIQUID GT SCH ×2 (08:34→17:35)
[2018-12-26] MEDS: CALCIUM CARBONATE 500 MG TAB.CHEW GT SCH ×2 (08:34→17:35)
[2018-12-26] MEDS: MULTIVIT W/MINERALS 1 TAB TABLET GT SCH (08:39)
[2018-12-26] MEDS: Z GUARD REMEDY 4 OZ OINT TP SCH ×2 (09:00→21:15)
[2018-12-26] MEDS: [UNRECOGNIZED DRUG - OTHER] TP SCH ×2 (09:00→21:15)
[2018-12-26] MEDS: VIT A TP SCH ×2 (09:00→21:15)
[2018-12-26] MEDS: HYDROGEN PEROXIDE 480 ML BOTTLE TP SCH ×2 (09:00→19:32)
--- NOTE | 2018-12-26 15:42 | NUR ---
RT NOTE: RECEIVED PT ON ORDERED NOTED VENT SETTINGS. NO RESPIRATORY DISTRESS NOTED. TRACH CHECKED SECURE AND PATENT. SXD AND LAVAGED PT Q ROUND AND NEEDED. TXS GIVEN ORDERED WITH NO ADVERSE REACTIONS NOTED. TRACH CARE DONE. JAVIERE FAUSTO AND NEVA DELGADO @ BEDSIDE. ALARMS CHECKED. Addendum: 12/26/18 at 1543 by RM DIEGO RT Amended: Links added.
[2018-12-26] MEDS: GLUCERNA 1.2 1,000 ML BOTTLE GT PRN (18:12)
[2018-12-26] MEDS: INSULIN REGULAR, HUMAN 100 UNIT/ML 3 ML VIAL SQ PRN (18:18)
--- NOTE | 2018-12-26 19:32 | NUR ---
RT NOTE: RECEIVED TRACH PT ON MECH VENT ON NOTED SETTINGS PER MD ORDERS. TRACH CARE DONE AND IS PATENT AND SECURED. HIDE TANNER DONE. Q6 BREATHING TX GIVEN WITH NO ADVERSE REACTION NOTED. SX DONE PRN. VENT PLUGGED INTO RED OUTLET. ALARMS ON AND AUDIBLE. AMBU BAG @ BEDSIDE. NO RESP DISTRESS AT THIS TIME. WILL CONT TO MONITOR PT.
[2018-12-26 20:41] VITALS: BP 115/88
[2018-12-26] MEDS: ASCORBIC ACID 500 MG TABLET GT SCH (21:15)
[2018-12-27] MEDS: ALBUTEROL FS 2.5 MG/3 ML VIAL.NEB NEB SCH ×4 (01:39→19:27)
[2018-12-27] MEDS: GABAPENTIN 300 MG CAPSULE GT SCH ×3 (05:45→21:08)
[2018-12-27] MEDS: METOCLOPRAMIDE HCL 10 MG/10 ML UDC GT SCH ×3 (05:46→21:09)
[2018-12-27] MEDS: DEXILANT 30 MG GT SCH (05:46)
[2018-12-27] MEDS: BLOOD SUGAR DIAGNOSTIC 1 EACH STRIP IN SCH ×2 (05:46→18:06)
[2018-12-27 07:34] VITALS: BP 132/69
[2018-12-27] MEDS: HYDROGEN PEROXIDE 480 ML BOTTLE TP SCH ×2 (07:43→21:09)
[2018-12-27] MEDS: CALCIUM CARBONATE 500 MG TAB.CHEW GT SCH ×2 (08:05→17:00)
[2018-12-27] MEDS: MULTIVIT W/MINERALS 1 TAB TABLET GT SCH (08:05)
[2018-12-27] MEDS: LEVETIRACETAM SOL (5 ML) 100 MG/ML UDC GT SCH ×2 (08:05→21:08)
[2018-12-27] MEDS: SIMETHICONE SUSP 40 MG/0.6 ML BOTTLE GT SCH ×2 (08:05→20:00)
[2018-12-27] MEDS: DOCUSATE SODIUM LIQ 100 MG/10 ML UDC GT SCH (08:05)
[2018-12-27] MEDS: ACIDOPHILUS/BULGARICUS 1 EACH TAB.CHEW GT SCH ×2 (08:05→17:00)
[2018-12-27] MEDS: FERROUS SULFATE - FOR SA ONLY 330 MG/7.5 ML UDC GT SCH ×2 (08:05→17:00)
[2018-12-27] MEDS: TRILEPTAL GT SCH ×2 (08:05→21:09)
[2018-12-27] MEDS: PROSOURCE DIETARY LIQUID 30 ML LIQUID GT SCH ×2 (08:05→17:00)
[2018-12-27] MEDS: [UNRECOGNIZED DRUG - OTHER] TP SCH ×2 (09:00→21:09)
[2018-12-27] MEDS: Z GUARD REMEDY 4 OZ OINT TP SCH ×2 (09:00→21:09)
[2018-12-27] MEDS: VIT A TP SCH ×2 (09:00→21:09)
[2018-12-27] MEDS: GLUCERNA 1.2 1,000 ML BOTTLE GT PRN (14:24)
[2018-12-27] MEDS: INSULIN REGULAR, HUMAN 100 UNIT/ML 3 ML VIAL SQ PRN (18:07)
[2018-12-27 20:41] VITALS: BP 120/72
[2018-12-27] MEDS: ASCORBIC ACID 500 MG TABLET GT SCH (21:09)
[2018-12-28] MEDS: ALBUTEROL FS 2.5 MG/3 ML VIAL.NEB NEB SCH ×4 (00:30→19:28)
[2018-12-28] MEDS: METOCLOPRAMIDE HCL 10 MG/10 ML UDC GT SCH ×3 (05:37→20:33)
[2018-12-28] MEDS: BLOOD SUGAR DIAGNOSTIC 1 EACH STRIP IN SCH ×2 (05:37→17:31)
[2018-12-28] MEDS: GABAPENTIN 300 MG CAPSULE GT SCH ×3 (05:37→20:33)
[2018-12-28] MEDS: DEXILANT 30 MG GT SCH (05:37)
[2018-12-28 07:43] VITALS: BP 129/67
[2018-12-28] MEDS: SIMETHICONE SUSP 40 MG/0.6 ML BOTTLE GT SCH ×2 (08:00→20:32)
[2018-12-28] MEDS: HYDROGEN PEROXIDE 480 ML BOTTLE TP SCH ×2 (09:34→20:33)
[2018-12-28] MEDS: ACIDOPHILUS/BULGARICUS 1 EACH TAB.CHEW GT SCH ×2 (09:57→17:30)
[2018-12-28] MEDS: PROSOURCE DIETARY LIQUID 30 ML LIQUID GT SCH ×2 (09:57→17:30)
[2018-12-28] MEDS: LEVETIRACETAM SOL (5 ML) 100 MG/ML UDC GT SCH ×2 (09:57→20:32)
[2018-12-28] MEDS: DOCUSATE SODIUM LIQ 100 MG/10 ML UDC GT SCH (09:57)
[2018-12-28] MEDS: MULTIVIT W/MINERALS 1 TAB TABLET GT SCH (09:57)
[2018-12-28] MEDS: FERROUS SULFATE - FOR SA ONLY 330 MG/7.5 ML UDC GT SCH ×2 (09:57→17:30)
[2018-12-28] MEDS: CALCIUM CARBONATE 500 MG TAB.CHEW GT SCH ×2 (09:57→17:30)
[2018-12-28] MEDS: TRILEPTAL GT SCH ×2 (09:57→20:33)
[2018-12-28] MEDS: VIT A TP SCH ×2 (09:58→20:33)
[2018-12-28] MEDS: Z GUARD REMEDY 4 OZ OINT TP SCH ×2 (09:58→20:33)
[2018-12-28] MEDS: [UNRECOGNIZED DRUG - OTHER] TP SCH ×2 (09:58→20:33)
[2018-12-28] MEDS: GLUCERNA 1.2 1,000 ML BOTTLE GT PRN (11:31)
--- NOTE | 2018-12-28 16:11 | NUR ---
RT NOTES TRACH TUBE IN PLACE, PATENT, AND SECURED WITH TRACH TIE. ALARMS ON AND AUDIBLE. VENT PLUGGED IN TO RED OUTLET. SPO2 >92% MAINTAINED THROUGHOUT SHIFT. AMBU BAG AND BACK UP TRACH BY THE BEDSIDE. NO DISTRESS. Addendum: 12/28/18 at 1613 by ADRIÁN THOMAS RT Amended: Links added.
[2018-12-28] MEDS: INSULIN REGULAR, HUMAN 100 UNIT/ML 3 ML VIAL SQ PRN (17:31)
[2018-12-28] MEDS: ASCORBIC ACID 500 MG TABLET GT SCH (20:33)
[2018-12-29] MEDS: ALBUTEROL FS 2.5 MG/3 ML VIAL.NEB NEB SCH ×4 (01:27→19:22)
[2018-12-29 04:36] VITALS: BP 143/76
[2018-12-29] MEDS: BLOOD SUGAR DIAGNOSTIC 1 EACH STRIP IN SCH ×2 (05:37→17:27)
[2018-12-29] MEDS: GABAPENTIN 300 MG CAPSULE GT SCH ×3 (05:37→20:56)
[2018-12-29] MEDS: METOCLOPRAMIDE HCL 10 MG/10 ML UDC GT SCH ×3 (05:37→20:56)
[2018-12-29] MEDS: DEXILANT 30 MG GT SCH (05:37)
[2018-12-29 07:36] VITALS: BP 112/68
[2018-12-29] MEDS: FERROUS SULFATE - FOR SA ONLY 330 MG/7.5 ML UDC GT SCH ×2 (08:02→17:27)
[2018-12-29] MEDS: SIMETHICONE SUSP 40 MG/0.6 ML BOTTLE GT SCH ×2 (08:02→20:56)
[2018-12-29] MEDS: DOCUSATE SODIUM LIQ 100 MG/10 ML UDC GT SCH (08:02)
[2018-12-29] MEDS: MULTIVIT W/MINERALS 1 TAB TABLET GT SCH (08:03)
[2018-12-29] MEDS: CALCIUM CARBONATE 500 MG TAB.CHEW GT SCH ×2 (08:03→17:27)
[2018-12-29] MEDS: TRILEPTAL GT SCH ×2 (08:03→20:56)
[2018-12-29] MEDS: PROSOURCE DIETARY LIQUID 30 ML LIQUID GT SCH ×2 (08:03→17:27)
[2018-12-29] MEDS: ACIDOPHILUS/BULGARICUS 1 EACH TAB.CHEW GT SCH ×2 (08:03→17:27)
[2018-12-29] MEDS: LEVETIRACETAM SOL (5 ML) 100 MG/ML UDC GT SCH ×2 (08:03→20:56)
[2018-12-29] MEDS: [UNRECOGNIZED DRUG - OTHER] TP SCH ×2 (09:00→20:56)
[2018-12-29] MEDS: HYDROGEN PEROXIDE 480 ML BOTTLE TP SCH ×2 (09:00→19:22)
[2018-12-29] MEDS: Z GUARD REMEDY 4 OZ OINT TP SCH ×2 (09:00→20:56)
[2018-12-29] MEDS: VIT A TP SCH ×2 (09:00→20:56)
--- NOTE | 2018-12-29 11:34 | NUR ---
Awake . On cool aerosol as ordered. GT in place patent no residual. Tolerated GT forumula well. Bourgeois catheter with clear yellow urine. Noted elevated HR. ranging from 107-115 BP: 111/75 R: 16 T. 99.6 on cooling measures. medicated as ordered with tylenol routine prior to wound care and [place] prn for pain. Patient declines pain after medicated for pain. [place] effective. HR remains elevated 110-115. RN supervisor cigar processing notified. Total care provided. Wound care done as ordered and tolerated well. All needs met and attended. HOB elevated. Aspiration precautions maintained. T
[2018-12-29] MEDS: INSULIN REGULAR, HUMAN 100 UNIT/ML 3 ML VIAL SQ PRN (17:29)
--- NOTE | 2018-12-29 18:30 | NUR ---
Awake alert. Moist oral mucosa. Trach with cool aerosol as ordered. GT in place patent no residual tolerated GT formula well. HOB elevated. Aspiration precautions maintained. Kept clean and comfortable. Remains on cooling measures throughout shift. Bourgeois catheter changed tolerated well. Urine specimen collected as ordered. Kept clean and comfortable. All needs met and attended. Declines pain or discomfort. V/S BP: 134/72 P: 105 R: 19 T.99.9 PA0/10 Addendum: 12/29/18 at 1910 by PITER COLMENARES LVN Wrong entry for 0 and 0 documentation.
[2018-12-29 20:18] VITALS: BP 125/75
[2018-12-29] MEDS: ASCORBIC ACID 500 MG TABLET GT SCH (20:56)
[2018-12-30] MEDS: ALBUTEROL FS 2.5 MG/3 ML VIAL.NEB NEB SCH ×4 (01:41→19:23)
[2018-12-30] MEDS: METOCLOPRAMIDE HCL 10 MG/10 ML UDC GT SCH ×3 (05:33→20:09)
[2018-12-30] MEDS: DEXILANT 30 MG GT SCH (05:33)
[2018-12-30] MEDS: INSULIN REGULAR, HUMAN 100 UNIT/ML 3 ML VIAL SQ PRN ×2 (05:33→18:26)
[2018-12-30] MEDS: GABAPENTIN 300 MG CAPSULE GT SCH ×3 (05:33→20:08)
[2018-12-30] MEDS: BLOOD SUGAR DIAGNOSTIC 1 EACH STRIP IN SCH ×2 (05:33→18:25)
[2018-12-30] MEDS: GLUCERNA 1.2 1,000 ML BOTTLE GT PRN ×2 (05:56→23:39)
[2018-12-30 07:29] VITALS: BP 142/79
[2018-12-30] MEDS: FERROUS SULFATE - FOR SA ONLY 330 MG/7.5 ML UDC GT SCH ×2 (08:46→17:39)
[2018-12-30] MEDS: SIMETHICONE SUSP 40 MG/0.6 ML BOTTLE GT SCH ×2 (08:46→20:07)
[2018-12-30] MEDS: DOCUSATE SODIUM LIQ 100 MG/10 ML UDC GT SCH (08:46)
[2018-12-30] MEDS: LEVETIRACETAM SOL (5 ML) 100 MG/ML UDC GT SCH ×2 (08:46→20:08)
[2018-12-30] MEDS: ACIDOPHILUS/BULGARICUS 1 EACH TAB.CHEW GT SCH ×2 (08:46→17:39)
[2018-12-30] MEDS: CALCIUM CARBONATE 500 MG TAB.CHEW GT SCH ×2 (08:47→17:39)
[2018-12-30] MEDS: Z GUARD REMEDY 4 OZ OINT TP SCH ×2 (08:47→20:09)
[2018-12-30] MEDS: PROSOURCE DIETARY LIQUID 30 ML LIQUID GT SCH ×2 (08:47→17:39)
[2018-12-30] MEDS: [UNRECOGNIZED DRUG - OTHER] TP SCH ×2 (08:47→20:09)
[2018-12-30] MEDS: VIT A TP SCH ×2 (08:47→20:09)
[2018-12-30] MEDS: TRILEPTAL GT SCH ×2 (08:47→20:08)
[2018-12-30] MEDS: MULTIVIT W/MINERALS 1 TAB TABLET GT SCH (08:47)
[2018-12-30] MEDS: HYDROGEN PEROXIDE 480 ML BOTTLE TP SCH ×2 (09:42→21:00)
--- NOTE | 2018-12-30 20:00 | NUR ---
Pt seen and examined by NAN Vargas no new orders.
[2018-12-30] MEDS: ASCORBIC ACID 500 MG TABLET GT SCH (20:09)
[2018-12-31] MEDS: ALBUTEROL FS 2.5 MG/3 ML VIAL.NEB NEB SCH ×4 (01:10→19:22)
[2018-12-31 02:44] VITALS: BP 106/47
[2018-12-31] MEDS: GABAPENTIN 300 MG CAPSULE GT SCH ×3 (05:12→21:04)
[2018-12-31] MEDS: DEXILANT 30 MG GT SCH (05:13)
[2018-12-31] MEDS: BLOOD SUGAR DIAGNOSTIC 1 EACH STRIP IN SCH ×2 (05:13→17:54)
[2018-12-31] MEDS: INSULIN REGULAR, HUMAN 100 UNIT/ML 3 ML VIAL SQ PRN ×2 (05:13→17:58)
[2018-12-31] MEDS: METOCLOPRAMIDE HCL 10 MG/10 ML UDC GT SCH ×3 (05:13→21:04)
[2018-12-31 07:46] VITALS: BP 135/69
[2018-12-31] MEDS: SIMETHICONE SUSP 40 MG/0.6 ML BOTTLE GT SCH ×2 (08:57→20:00)
[2018-12-31] MEDS: HYDROGEN PEROXIDE 480 ML BOTTLE TP SCH ×2 (09:18→20:25)
[2018-12-31] MEDS: FERROUS SULFATE - FOR SA ONLY 330 MG/7.5 ML UDC GT SCH ×2 (09:47→17:54)
[2018-12-31] MEDS: LEVETIRACETAM SOL (5 ML) 100 MG/ML UDC GT SCH ×2 (09:47→21:04)
[2018-12-31] MEDS: MULTIVIT W/MINERALS 1 TAB TABLET GT SCH (09:47)
[2018-12-31] MEDS: PROSOURCE DIETARY LIQUID 30 ML LIQUID GT SCH ×2 (09:47→17:54)
[2018-12-31] MEDS: DOCUSATE SODIUM LIQ 100 MG/10 ML UDC GT SCH (09:47)
[2018-12-31] MEDS: CALCIUM CARBONATE 500 MG TAB.CHEW GT SCH ×2 (09:47→17:54)
[2018-12-31] MEDS: TRILEPTAL GT SCH ×2 (09:47→21:04)
[2018-12-31] MEDS: ACIDOPHILUS/BULGARICUS 1 EACH TAB.CHEW GT SCH ×2 (09:47→17:54)
[2018-12-31] MEDS: VIT A TP SCH ×2 (09:47→21:04)
[2018-12-31] MEDS: [UNRECOGNIZED DRUG - OTHER] TP SCH ×2 (09:47→21:04)
[2018-12-31] MEDS: Z GUARD REMEDY 4 OZ OINT TP SCH ×2 (09:47→21:04)
[2018-12-31 21:02] VITALS: BP 137/79
[2018-12-31] MEDS: ASCORBIC ACID 500 MG TABLET GT SCH (21:04)
[2018-12-31] MEDS: GLUCERNA 1.2 1,000 ML BOTTLE GT PRN (21:41)
[2019-01-01] MEDS: ALBUTEROL FS 2.5 MG/3 ML VIAL.NEB NEB SCH ×4 (00:38→19:25)
[2019-01-01] MEDS: ACETAMINOPHEN 650 MG/20 ML UDC- SA PATIENTS-FEVER ONLY GT PRN (05:15)
--- NOTE | 2019-01-01 05:15 | NUR ---
primary nurse noted patient with temperature of 103.0F. SM=131/79 FT=715 RR=19. charge nurse informed Dr. Hathaway. will wait for respond.
--- NOTE | 2019-01-01 05:20 | NUR ---
TRANSPORT AIRCREWMAN notes Temp of 103.0 F, axilla noted, Cooling measure initiated and tylenol 650 mg given via GT,HR 120. Will closely monitor.
--- NOTE | 2019-01-01 05:28 | NUR ---
Dr. Machado responded with new order or CBAS with dif, BMP, UA and culture, Blood culture. will continue to monitor
[2019-01-01] MEDS: METOCLOPRAMIDE HCL 10 MG/10 ML UDC GT SCH ×3 (05:46→21:15)
[2019-01-01] MEDS: GABAPENTIN 300 MG CAPSULE GT SCH ×3 (05:46→21:14)
[2019-01-01] MEDS: BLOOD SUGAR DIAGNOSTIC 1 EACH STRIP IN SCH ×2 (05:47→17:57)
[2019-01-01] MEDS: DEXILANT 30 MG GT SCH (05:47)
[2019-01-01] MEDS: INSULIN REGULAR, HUMAN 100 UNIT/ML 3 ML VIAL SQ PRN ×2 (05:48→18:00)
--- NOTE | 2019-01-01 06:15 | NUR ---
FORK OPERATOR NOTE Tylenol ineffective, temp of 102.7 oral still noted, cooling measure continue to provide. HR 108 at this time. Will continue to monitor.
[2019-01-01 06:37] LABS: BASOPHILS # (AUTO) 0.1 /CMM (0.0-0.2); BASOPHILS % (AUTO) 0.3 % (0.0-2.0); EOSINOPHILS % (AUTO) 1.3 % (0.0-6.0); HEMATOCRIT 25 % (33-45); HEMOGLOBIN 8.4 g/dL (11.5-14.8); LYMPHOCYTES # (AUTO) 1.7 /CMM (0.8-4.8); LYMPHOCYTES % (AUTO) 6.5 % (20.0-44.0); MEAN CORPUSCULAR HGB CONC 33 g/dl (31.0-36.0); MEAN CORPUSCULAR VOLUME 97 fL (82-100); MONOCYTES # (AUTO) 1.6 /CMM (0.1-1.30); MONOCYTES % (AUTO) 6.4 % (2.0-12.0); NEUTROPHILS # (AUTO) 21.8 /CMM (1.8-8.9); NEUTROPHILS % (AUTO) 85.5 % (43.0-81.0); PLATELET COUNT (AUTO) 275 /CMM (150-450); RED BLOOD CELL COUNT(AUTO) 2.61 MIL/uL (4.0-5.2); WHITE BLOOD COUNT (AUTO) 25.5 K/uL (4.3-11.0)
[2019-01-01 06:50] LABS: CALCIUM, SERUM 10.1 mg/dL (8.5-10.1); CREATININE 2.5 mg/dL (0.6-1.3); POTASSIUM 4.2 mmol/L (3.5-5.1)
[2019-01-01 08:16] VITALS: BP 136/84
[2019-01-01] MEDS: SIMETHICONE SUSP 40 MG/0.6 ML BOTTLE GT SCH ×2 (08:26→20:00)
[2019-01-01] MEDS: HYDROGEN PEROXIDE 480 ML BOTTLE TP SCH ×2 (09:01→21:15)
[2019-01-01] MEDS: VIT A TP SCH ×2 (09:27→21:15)
[2019-01-01] MEDS: [UNRECOGNIZED DRUG - OTHER] TP SCH ×2 (09:27→21:15)
[2019-01-01] MEDS: CALCIUM CARBONATE 500 MG TAB.CHEW GT SCH ×2 (09:27→17:57)
[2019-01-01] MEDS: ACIDOPHILUS/BULGARICUS 1 EACH TAB.CHEW GT SCH ×2 (09:27→17:57)
[2019-01-01] MEDS: LEVETIRACETAM SOL (5 ML) 100 MG/ML UDC GT SCH ×2 (09:27→21:14)
[2019-01-01] MEDS: TRILEPTAL GT SCH ×2 (09:27→21:15)
[2019-01-01] MEDS: FERROUS SULFATE - FOR SA ONLY 330 MG/7.5 ML UDC GT SCH ×2 (09:27→17:57)
[2019-01-01] MEDS: MULTIVIT W/MINERALS 1 TAB TABLET GT SCH (09:27)
[2019-01-01] MEDS: PROSOURCE DIETARY LIQUID 30 ML LIQUID GT SCH ×2 (09:27→17:57)
[2019-01-01] MEDS: Z GUARD REMEDY 4 OZ OINT TP SCH ×2 (09:27→21:15)
[2019-01-01] MEDS: DOCUSATE SODIUM LIQ 100 MG/10 ML UDC GT SCH (09:27)
[2019-01-01 10:15] LABS: APPEARANCE,URINE CLOUDY (CLEAR); BILIRUBIN,URINE NEGATIVE (NEGATIVE); BLOOD, URINE 2+ Ery/uL (NEGATIVE); COLOR,URINE YELLOW (YELLOW); KETONES,URINE NEGATIVE (NEGATIVE); LEUKOCYTE ESTERASE ,URINE 3+ (NEGATIVE); NITRITE, URINE NEGATIVE (NEGATIVE); PROTEIN,URINE 3+ mg/dl (NEGATIVE); UGLUCOSE NEGATIVE (NEGATIVE); UROBILINOGEN,URINE 0.2 EU/dL (0.2)
--- NOTE | 2019-01-01 10:15 | NUR ---
Notified Dr. Luis regarding CBC, BMP result with WBC of 25.5, BUN 51, Creat 2.5, UA result pending. Dr. Luis did not order at this time pending UA result. V/S 100.8, 93, 16, 136/84 100%.
[2019-01-01 10:54] LABS: BACTERIA,URINE 1+ /HPF (None Seen); SQUAMOUS EPITHELIAL CELL,UR Few /HPF (None Seen); WBC,URINE TOO NUMEROUS TO COUN /HPF (0-3)
--- NOTE | 2019-01-01 11:40 | NUR ---
Notified Dr. Luis of result, with order to start Cefepime 2 gm IV qd and requested to have NAN Garcia see the patient. NAN Sewell informed.
--- NOTE | 2019-01-01 12:05 | NUR ---
Notified [facility] pharmacist that Cefepime IV is not covered under patient's insurance according to Donnell from [facility] IV department. [facility] will supply the ATB. Left a message to resident's sister Beckie regarding change of condition.
[2019-01-01] MEDS: CEFEPIME 2 GM in IV D5W 100 ML IV SCH (13:00)
--- NOTE | 2019-01-01 14:15 | NUR ---
Resident's sister Beckie called confirming that she received the message left in her VM regarding patient's change in condition.
--- NOTE | 2019-01-01 17:34 | NUR ---
Seen and examined by NAN Calhoun, she said that she will review the labs and medications and will make some changes or will enter new order if necessary.
[2019-01-01] MEDS: GLUCERNA 1.2 1,000 ML BOTTLE GT PRN (18:25)
[2019-01-01] MEDS ORDERED: VANCOMYCIN 1 GM in IV D5W 250ml IV SCH (20:00)
[2019-01-01 20:50] VITALS: BP 138/59
--- NOTE | 2019-01-01 21:00 | NUR ---
patient with new order of Vancomycin 1GM x1 then pharmacy to dose. medication given via ekit. charge nurse fax order to [facility] IV department.
[2019-01-01] MEDS: ASCORBIC ACID 500 MG TABLET GT SCH (21:15)
[2019-01-02] MEDS: ALBUTEROL FS 2.5 MG/3 ML VIAL.NEB NEB SCH ×4 (00:26→19:17)
[2019-01-02] MEDS: GABAPENTIN 300 MG CAPSULE GT SCH ×3 (05:38→20:24)
[2019-01-02] MEDS: METOCLOPRAMIDE HCL 10 MG/10 ML UDC GT SCH ×3 (05:38→20:26)
[2019-01-02] MEDS: BLOOD SUGAR DIAGNOSTIC 1 EACH STRIP IN SCH ×2 (05:38→17:15)
[2019-01-02] MEDS: DEXILANT 30 MG GT SCH (05:38)
[2019-01-02] MEDS: INSULIN REGULAR, HUMAN 100 UNIT/ML 3 ML VIAL SQ PRN ×2 (05:39→17:17)
[2019-01-02 07:28] VITALS: BP 111/61
[2019-01-02] MEDS: SIMETHICONE SUSP 40 MG/0.6 ML BOTTLE GT SCH ×2 (08:00→19:33)
[2019-01-02] MEDS: HYDROGEN PEROXIDE 480 ML BOTTLE TP SCH ×2 (09:00→21:30)
[2019-01-02] MEDS: FERROUS SULFATE - FOR SA ONLY 330 MG/7.5 ML UDC GT SCH ×2 (09:13→17:15)
[2019-01-02] MEDS: MULTIVIT W/MINERALS 1 TAB TABLET GT SCH (09:13)
[2019-01-02] MEDS: LEVETIRACETAM SOL (5 ML) 100 MG/ML UDC GT SCH ×2 (09:13→20:27)
[2019-01-02] MEDS: CALCIUM CARBONATE 500 MG TAB.CHEW GT SCH ×2 (09:13→17:15)
[2019-01-02] MEDS: ACIDOPHILUS/BULGARICUS 1 EACH TAB.CHEW GT SCH ×2 (09:13→17:15)
[2019-01-02] MEDS: VIT A TP SCH ×2 (09:13→20:26)
[2019-01-02] MEDS: DOCUSATE SODIUM LIQ 100 MG/10 ML UDC GT SCH (09:13)
[2019-01-02] MEDS: PROSOURCE DIETARY LIQUID 30 ML LIQUID GT SCH ×2 (09:13→17:15)
[2019-01-02] MEDS: [UNRECOGNIZED DRUG - OTHER] TP SCH ×2 (09:13→20:26)
[2019-01-02] MEDS: Z GUARD REMEDY 4 OZ OINT TP SCH ×2 (09:13→20:26)
[2019-01-02] MEDS: TRILEPTAL GT SCH ×2 (09:13→20:26)
[2019-01-02 10:59] LABS: BASOPHILS % (AUTO) 0.3 % (0.0-2.0); EOSINOPHILS % (AUTO) 4.9 % (0.0-6.0); HEMATOCRIT 25 % (33-45); HEMOGLOBIN 8.2 g/dL (11.5-14.8); LYMPHOCYTES # (AUTO) 2.2 /CMM (0.8-4.8); LYMPHOCYTES % (AUTO) 16.4 % (20.0-44.0); MEAN CORPUSCULAR HGB CONC 33 g/dl (31.0-36.0); MEAN CORPUSCULAR VOLUME 97 fL (82-100); MONOCYTES # (AUTO) 1.1 /CMM (0.1-1.30); MONOCYTES % (AUTO) 8.2 % (2.0-12.0); NEUTROPHILS # (AUTO) 9.5 /CMM (1.8-8.9); NEUTROPHILS % (AUTO) 70.2 % (43.0-81.0); PLATELET COUNT (AUTO) 261 /CMM (150-450); RED BLOOD CELL COUNT(AUTO) 2.55 MIL/uL (4.0-5.2); WHITE BLOOD COUNT (AUTO) 13.6 K/uL (4.3-11.0)
[2019-01-02 11:06] LABS: CALCIUM, SERUM 9.8 mg/dL (8.5-10.1); CREATININE 2.4 mg/dL (0.6-1.3); POTASSIUM 3.4 mmol/L (3.5-5.1)
--- NOTE | 2019-01-02 12:12 | NUR ---
Seen and examined by Dr. Luis, with new order to repeat CBC and BMP today. Result reported to MD with improved WBC 13.6 from 25.5 yesterday. BUN 53, Creat 2.4and K+ 3.4, new order to give KCL 40 meq x 1. Resident's sister Beckie updated of all new orders including lab result, appreciated the call. She said she will visit tomorrow. Endorsed.
[2019-01-02] MEDS: CEFEPIME 2 GM in IV D5W 100 ML IV SCH (13:00)
[2019-01-02] MEDS ORDERED: POTASSIUM CHLORIDE 20 MEQ POWDER PACKET GT ONE (13:00)
[2019-01-02] MEDS: GLUCERNA 1.2 1,000 ML BOTTLE GT PRN (18:18)
[2019-01-02] MEDS ORDERED: VANCOMYCIN 500 MG in IV D5W 100ml IV SCH (20:00)
[2019-01-02] MEDS: ASCORBIC ACID 500 MG TABLET GT SCH (20:26)
[2019-01-02 20:43] VITALS: BP 128/73
[2019-01-03] MEDS: ALBUTEROL FS 2.5 MG/3 ML VIAL.NEB NEB SCH ×4 (01:22→19:35)
[2019-01-03] MEDS: GABAPENTIN 300 MG CAPSULE GT SCH ×3 (05:01→20:49)
[2019-01-03] MEDS: METOCLOPRAMIDE HCL 10 MG/10 ML UDC GT SCH ×3 (05:03→20:44)
[2019-01-03] MEDS: DEXILANT 30 MG GT SCH (05:03)
[2019-01-03] MEDS: BLOOD SUGAR DIAGNOSTIC 1 EACH STRIP IN SCH ×2 (05:35→17:18)
[2019-01-03] MEDS: SIMETHICONE SUSP 40 MG/0.6 ML BOTTLE GT SCH ×2 (08:53→20:46)
[2019-01-03] MEDS: FERROUS SULFATE - FOR SA ONLY 330 MG/7.5 ML UDC GT SCH ×2 (08:55→17:18)
[2019-01-03] MEDS: Z GUARD REMEDY 4 OZ OINT TP SCH ×2 (08:55→20:45)
[2019-01-03] MEDS: DOCUSATE SODIUM LIQ 100 MG/10 ML UDC GT SCH (08:55)
[2019-01-03] MEDS: TRILEPTAL GT SCH ×2 (08:55→20:45)
[2019-01-03] MEDS: LEVETIRACETAM SOL (5 ML) 100 MG/ML UDC GT SCH ×2 (08:55→20:50)
[2019-01-03] MEDS: VIT A TP SCH ×2 (08:55→20:45)
[2019-01-03] MEDS: MULTIVIT W/MINERALS 1 TAB TABLET GT SCH (08:55)
[2019-01-03] MEDS: ACIDOPHILUS/BULGARICUS 1 EACH TAB.CHEW GT SCH ×2 (08:55→17:18)
[2019-01-03] MEDS: [UNRECOGNIZED DRUG - OTHER] TP SCH ×2 (08:55→20:45)
[2019-01-03] MEDS: PROSOURCE DIETARY LIQUID 30 ML LIQUID GT SCH ×2 (08:55→17:18)
[2019-01-03] MEDS: CALCIUM CARBONATE 500 MG TAB.CHEW GT SCH ×2 (08:55→17:18)
[2019-01-03] MEDS: HYDROGEN PEROXIDE 480 ML BOTTLE TP SCH ×2 (09:00→20:45)
[2019-01-03 11:25] VITALS: BP 133/70
--- NOTE | 2019-01-03 11:55 | NUR ---
NAN Loredo ordered to DC Vancomycin. Asked her for Cefepime stop date. She said to wait for final result of cultures.
[2019-01-03] MEDS: CEFEPIME 2 GM in IV D5W 100 ML IV SCH (13:00)
[2019-01-03] MEDS: GLUCERNA 1.2 1,000 ML BOTTLE GT PRN (14:30)
[2019-01-03] MEDS: INSULIN REGULAR, HUMAN 100 UNIT/ML 3 ML VIAL SQ PRN (17:19)
[2019-01-03 20:26] VITALS: BP 136/80
[2019-01-03] MEDS: ASCORBIC ACID 500 MG TABLET GT SCH (20:45)
[2019-01-04] MEDS: ALBUTEROL FS 2.5 MG/3 ML VIAL.NEB NEB SCH ×4 (01:38→19:17)
[2019-01-04] MEDS: DEXILANT 30 MG GT SCH (05:00)
[2019-01-04] MEDS: GABAPENTIN 300 MG CAPSULE GT SCH ×3 (05:00→21:12)
[2019-01-04] MEDS: BLOOD SUGAR DIAGNOSTIC 1 EACH STRIP IN SCH ×2 (05:00→17:24)
[2019-01-04] MEDS: METOCLOPRAMIDE HCL 10 MG/10 ML UDC GT SCH ×3 (05:00→21:12)
[2019-01-04] MEDS: SIMETHICONE SUSP 40 MG/0.6 ML BOTTLE GT SCH ×2 (08:00→20:00)
[2019-01-04] MEDS: VIT A TP SCH ×2 (09:00→21:12)
[2019-01-04] MEDS: HYDROGEN PEROXIDE 480 ML BOTTLE TP SCH ×2 (09:00→19:18)
[2019-01-04] MEDS: [UNRECOGNIZED DRUG - OTHER] TP SCH ×2 (09:00→21:12)
[2019-01-04] MEDS: Z GUARD REMEDY 4 OZ OINT TP SCH ×2 (09:00→21:12)
[2019-01-04] MEDS: ACIDOPHILUS/BULGARICUS 1 EACH TAB.CHEW GT SCH ×2 (09:30→16:34)
[2019-01-04] MEDS: DOCUSATE SODIUM LIQ 100 MG/10 ML UDC GT SCH (09:30)
[2019-01-04] MEDS: PROSOURCE DIETARY LIQUID 30 ML LIQUID GT SCH ×2 (09:30→16:34)
[2019-01-04] MEDS: MULTIVIT W/MINERALS 1 TAB TABLET GT SCH (09:30)
[2019-01-04] MEDS: TRILEPTAL GT SCH ×2 (09:30→21:12)
[2019-01-04] MEDS: CALCIUM CARBONATE 500 MG TAB.CHEW GT SCH ×2 (09:30→16:34)
[2019-01-04] MEDS: LEVETIRACETAM SOL (5 ML) 100 MG/ML UDC GT SCH ×2 (09:30→21:12)
[2019-01-04] MEDS: FERROUS SULFATE - FOR SA ONLY 330 MG/7.5 ML UDC GT SCH ×2 (09:30→16:34)
[2019-01-04] MEDS: GLUCERNA 1.2 1,000 ML BOTTLE GT PRN (10:26)
[2019-01-04] MEDS: CEFEPIME 2 GM in IV D5W 100 ML IV SCH (13:24)
[2019-01-04 15:23] VITALS: BP 134/67
[2019-01-04] MEDS: INSULIN REGULAR, HUMAN 100 UNIT/ML 3 ML VIAL SQ PRN (17:28)
--- NOTE | 2019-01-04 19:09 | NUR ---
Relayed urine culture result to NAN Loredo. She ordered to give Cefepime for 5 more days then DC.
[2019-01-04 20:50] VITALS: BP 146/79
[2019-01-04] MEDS: ASCORBIC ACID 500 MG TABLET GT SCH (21:12)
[2019-01-05] MEDS: ALBUTEROL FS 2.5 MG/3 ML VIAL.NEB NEB SCH ×4 (01:30→19:35)
[2019-01-05] MEDS: DEXILANT 30 MG GT SCH (05:43)
[2019-01-05] MEDS: BLOOD SUGAR DIAGNOSTIC 1 EACH STRIP IN SCH ×2 (05:43→18:17)
[2019-01-05] MEDS: GABAPENTIN 300 MG CAPSULE GT SCH ×3 (05:43→20:55)
[2019-01-05] MEDS: METOCLOPRAMIDE HCL 10 MG/10 ML UDC GT SCH ×3 (05:43→20:56)
[2019-01-05] MEDS: HYDROGEN PEROXIDE 480 ML BOTTLE TP SCH ×2 (06:54→21:00)
[2019-01-05 07:47] VITALS: BP 133/72
[2019-01-05] MEDS: CALCIUM CARBONATE 500 MG TAB.CHEW GT SCH ×2 (08:34→16:26)
[2019-01-05] MEDS: PROSOURCE DIETARY LIQUID 30 ML LIQUID GT SCH ×2 (08:34→16:26)
[2019-01-05] MEDS: TRILEPTAL GT SCH ×2 (08:34→20:56)
[2019-01-05] MEDS: LEVETIRACETAM SOL (5 ML) 100 MG/ML UDC GT SCH ×2 (08:34→20:55)
[2019-01-05] MEDS: SIMETHICONE SUSP 40 MG/0.6 ML BOTTLE GT SCH ×2 (08:34→20:55)
[2019-01-05] MEDS: ACIDOPHILUS/BULGARICUS 1 EACH TAB.CHEW GT SCH ×2 (08:34→16:26)
[2019-01-05] MEDS: MULTIVIT W/MINERALS 1 TAB TABLET GT SCH (08:34)
[2019-01-05] MEDS: FERROUS SULFATE - FOR SA ONLY 330 MG/7.5 ML UDC GT SCH ×2 (08:34→16:26)
[2019-01-05] MEDS: DOCUSATE SODIUM LIQ 100 MG/10 ML UDC GT SCH (08:34)
[2019-01-05] MEDS: MAGNESIUM HYDROXIDE 30 ML UDC GT PRN (08:35)
[2019-01-05] MEDS: [UNRECOGNIZED DRUG - OTHER] TP SCH ×2 (09:00→20:57)
[2019-01-05] MEDS: VIT A TP SCH ×2 (09:00→20:57)
[2019-01-05] MEDS: Z GUARD REMEDY 4 OZ OINT TP SCH ×2 (09:00→20:57)
--- NOTE | 2019-01-05 09:41 | NUR ---
RT PATIENT REC'D TRACHED ON ORDERED MODALITY TOLERATED WELL. PATIENT APPEARS COMFORTABLE AND IN NO DISTRESS AT THIS TIME. ALL SAFETY MEASURES CHECKED. WILL CONTINUE TO MONITOR CLOSELY. CONTINUE CURRENT PLAN OF RESP CARE. Addendum: 01/05/19 at 0943 by ELIZABETH CAPONE RT Amended: Links added.
[2019-01-05] MEDS: CEFEPIME 2 GM in IV D5W 100 ML IV SCH (13:30)
[2019-01-05] MEDS: INSULIN REGULAR, HUMAN 100 UNIT/ML 3 ML VIAL SQ PRN (18:18)
[2019-01-05] MEDS: BISACODYL SUPP (10 MG) 10 MG/SUPP.RECT SUPP.RECT RC PRN (18:39)
[2019-01-05 19:53] VITALS: BP 115/75
[2019-01-05] MEDS: ASCORBIC ACID 500 MG TABLET GT SCH (20:57)
[2019-01-05] MEDS: GLUCERNA 1.2 1,000 ML BOTTLE GT PRN (22:19)
[2019-01-06] MEDS: ALBUTEROL FS 2.5 MG/3 ML VIAL.NEB NEB SCH ×4 (01:42→20:02)
[2019-01-06] MEDS: GABAPENTIN 300 MG CAPSULE GT SCH ×3 (05:29→20:29)
[2019-01-06] MEDS: METOCLOPRAMIDE HCL 10 MG/10 ML UDC GT SCH ×3 (05:29→20:30)
[2019-01-06] MEDS: DEXILANT 30 MG GT SCH (05:29)
[2019-01-06] MEDS: BLOOD SUGAR DIAGNOSTIC 1 EACH STRIP IN SCH ×2 (05:50→17:14)
[2019-01-06] MEDS: INSULIN REGULAR, HUMAN 100 UNIT/ML 3 ML VIAL SQ PRN ×2 (05:51→17:16)
[2019-01-06 07:43] VITALS: BP 138/76
[2019-01-06] MEDS: SIMETHICONE SUSP 40 MG/0.6 ML BOTTLE GT SCH ×2 (08:00→20:29)
[2019-01-06] MEDS: HYDROGEN PEROXIDE 480 ML BOTTLE TP SCH ×2 (09:00→20:30)
[2019-01-06] MEDS: LEVETIRACETAM SOL (5 ML) 100 MG/ML UDC GT SCH ×2 (09:36→20:29)
[2019-01-06] MEDS: [UNRECOGNIZED DRUG - OTHER] TP SCH ×2 (09:36→20:30)
[2019-01-06] MEDS: TRILEPTAL GT SCH ×2 (09:36→20:30)
[2019-01-06] MEDS: DOCUSATE SODIUM LIQ 100 MG/10 ML UDC GT SCH (09:36)
[2019-01-06] MEDS: CALCIUM CARBONATE 500 MG TAB.CHEW GT SCH ×2 (09:36→16:45)
[2019-01-06] MEDS: PROSOURCE DIETARY LIQUID 30 ML LIQUID GT SCH ×2 (09:36→16:45)
[2019-01-06] MEDS: VIT A TP SCH ×2 (09:36→20:30)
[2019-01-06] MEDS: Z GUARD REMEDY 4 OZ OINT TP SCH ×2 (09:36→20:30)
[2019-01-06] MEDS: ACIDOPHILUS/BULGARICUS 1 EACH TAB.CHEW GT SCH ×2 (09:36→16:45)
[2019-01-06] MEDS: MULTIVIT W/MINERALS 1 TAB TABLET GT SCH (09:36)
[2019-01-06] MEDS: FERROUS SULFATE - FOR SA ONLY 330 MG/7.5 ML UDC GT SCH ×2 (09:36→16:45)
--- NOTE | 2019-01-06 12:00 | NUR ---
BARREL LAPPER REPLACED THE DAVIDSON CATH 16FR.GOOD URINE OUTPUT.PT TOLERATED WELL.NO COMPLICATIONS NOTED.
[2019-01-06] MEDS: CEFEPIME 2 GM in IV D5W 100 ML IV SCH (12:43)
--- NOTE | 2019-01-06 16:18 | NUR ---
Family invited to IDT STEPHEN called patients responsible green party/ Sister, Beckie Chu [phone] to invite them the IDT plan of care conference being held tomorrow January 07, 2019 in the activities room from 12:30pm-1:30pm. The call went to voicemail and STEPHEN left message with STEPHEN contact information. Beckie contacted STEPHEN back to request that the residents IDT plan of care conference moved to a later date in the month. STEPHEN informed Beckie that we can have the residents IDT on January 21 from 12:30-1:30pm. Beckie was receptive and agreeable to plan. STEPHEN communicated with charge nurse, Jorge and Sub-acute director.
[2019-01-06] MEDS: GLUCERNA 1.2 1,000 ML BOTTLE GT PRN (17:17)
[2019-01-06 20:19] VITALS: BP 146/72
[2019-01-06] MEDS: ASCORBIC ACID 500 MG TABLET GT SCH (20:30)
[2019-01-07] MEDS: ALBUTEROL FS 2.5 MG/3 ML VIAL.NEB NEB SCH ×4 (01:42→19:43)
[2019-01-07] MEDS: DEXILANT 30 MG GT SCH (05:08)
[2019-01-07] MEDS: GABAPENTIN 300 MG CAPSULE GT SCH ×3 (05:08→20:37)
[2019-01-07] MEDS: BLOOD SUGAR DIAGNOSTIC 1 EACH STRIP IN SCH ×2 (05:08→18:21)
[2019-01-07] MEDS: METOCLOPRAMIDE HCL 10 MG/10 ML UDC GT SCH ×3 (05:08→20:33)
[2019-01-07] MEDS: INSULIN REGULAR, HUMAN 100 UNIT/ML 3 ML VIAL SQ PRN ×2 (05:09→18:22)
[2019-01-07] MEDS: LEVETIRACETAM SOL (5 ML) 100 MG/ML UDC GT SCH ×2 (08:16→20:30)
[2019-01-07] MEDS: DOCUSATE SODIUM LIQ 100 MG/10 ML UDC GT SCH (08:16)
[2019-01-07] MEDS: TRILEPTAL GT SCH ×2 (08:16→20:35)
[2019-01-07] MEDS: MULTIVIT W/MINERALS 1 TAB TABLET GT SCH (08:16)
[2019-01-07] MEDS: PROSOURCE DIETARY LIQUID 30 ML LIQUID GT SCH ×2 (08:16→16:30)
[2019-01-07] MEDS: ACIDOPHILUS/BULGARICUS 1 EACH TAB.CHEW GT SCH ×2 (08:16→16:30)
[2019-01-07] MEDS: CALCIUM CARBONATE 500 MG TAB.CHEW GT SCH ×2 (08:16→16:30)
[2019-01-07] MEDS: SIMETHICONE SUSP 40 MG/0.6 ML BOTTLE GT SCH ×2 (08:16→20:30)
[2019-01-07] MEDS: FERROUS SULFATE - FOR SA ONLY 330 MG/7.5 ML UDC GT SCH ×2 (08:16→16:30)
[2019-01-07 08:39] VITALS: BP 108/81
[2019-01-07] MEDS: Z GUARD REMEDY 4 OZ OINT TP SCH ×2 (09:00→20:31)
[2019-01-07] MEDS: [UNRECOGNIZED DRUG - OTHER] TP SCH ×2 (09:00→20:31)
[2019-01-07] MEDS: VIT A TP SCH ×2 (09:00→20:31)
[2019-01-07] MEDS: HYDROGEN PEROXIDE 480 ML BOTTLE TP SCH ×2 (09:18→20:30)
[2019-01-07] MEDS: CEFEPIME 2 GM in IV D5W 100 ML IV SCH (12:37)
[2019-01-07] MEDS: GLUCERNA 1.2 1,000 ML BOTTLE GT PRN (13:32)
[2019-01-07 19:58] VITALS: BP 133/61
[2019-01-07] MEDS: ASCORBIC ACID 500 MG TABLET GT SCH (20:33)
[2019-01-08] MEDS: ALBUTEROL FS 2.5 MG/3 ML VIAL.NEB NEB SCH ×4 (00:37→19:29)
[2019-01-08] MEDS: GABAPENTIN 300 MG CAPSULE GT SCH ×3 (05:16→20:25)
[2019-01-08] MEDS: METOCLOPRAMIDE HCL 10 MG/10 ML UDC GT SCH ×3 (05:16→20:25)
[2019-01-08] MEDS: DEXILANT 30 MG GT SCH (05:16)
[2019-01-08] MEDS: BLOOD SUGAR DIAGNOSTIC 1 EACH STRIP IN SCH ×2 (05:17→17:15)
[2019-01-08] MEDS: INSULIN REGULAR, HUMAN 100 UNIT/ML 3 ML VIAL SQ PRN ×2 (05:18→17:16)
[2019-01-08 07:27] VITALS: BP 136/68
[2019-01-08] MEDS: FERROUS SULFATE - FOR SA ONLY 330 MG/7.5 ML UDC GT SCH ×2 (08:50→17:14)
[2019-01-08] MEDS: LEVETIRACETAM SOL (5 ML) 100 MG/ML UDC GT SCH ×2 (08:50→20:25)
[2019-01-08] MEDS: DOCUSATE SODIUM LIQ 100 MG/10 ML UDC GT SCH (08:50)
[2019-01-08] MEDS: SIMETHICONE SUSP 40 MG/0.6 ML BOTTLE GT SCH ×2 (08:50→20:25)
[2019-01-08] MEDS: CALCIUM CARBONATE 500 MG TAB.CHEW GT SCH ×2 (08:51→17:14)
[2019-01-08] MEDS: PROSOURCE DIETARY LIQUID 30 ML LIQUID GT SCH ×2 (08:51→17:14)
[2019-01-08] MEDS: TRILEPTAL GT SCH ×2 (08:51→20:25)
[2019-01-08] MEDS: MULTIVIT W/MINERALS 1 TAB TABLET GT SCH (08:51)
[2019-01-08] MEDS: ACIDOPHILUS/BULGARICUS 1 EACH TAB.CHEW GT SCH ×2 (08:51→17:14)
[2019-01-08] MEDS: VIT A TP SCH ×2 (09:00→20:25)
[2019-01-08] MEDS: Z GUARD REMEDY 4 OZ OINT TP SCH ×2 (09:00→20:26)
[2019-01-08] MEDS: [UNRECOGNIZED DRUG - OTHER] TP SCH ×2 (09:00→20:25)
[2019-01-08] MEDS: HYDROGEN PEROXIDE 480 ML BOTTLE TP SCH ×2 (09:00→20:26)
[2019-01-08] MEDS: GLUCERNA 1.2 1,000 ML BOTTLE GT PRN (10:27)
[2019-01-08] MEDS: CEFEPIME 2 GM in IV D5W 100 ML IV SCH (12:51)
[2019-01-08 19:54] VITALS: BP 121/84
[2019-01-08 20:02] VITALS: BP 121/84
[2019-01-08] MEDS: ASCORBIC ACID 500 MG TABLET GT SCH (20:25)
[2019-01-08] MEDS: ACETAMINOPHEN 650 MG/20 ML UDC- SA PATIENTS-PAIN ONLY GT PRN (20:27)
[2019-01-09] MEDS: ALBUTEROL FS 2.5 MG/3 ML VIAL.NEB NEB SCH ×4 (01:16→19:09)
[2019-01-09] MEDS: DEXILANT 30 MG GT SCH (05:26)
[2019-01-09] MEDS: GABAPENTIN 300 MG CAPSULE GT SCH ×3 (05:26→21:30)
[2019-01-09] MEDS: GLUCERNA 1.2 1,000 ML BOTTLE GT PRN (05:26)
[2019-01-09] MEDS: BLOOD SUGAR DIAGNOSTIC 1 EACH STRIP IN SCH ×2 (05:26→18:04)
[2019-01-09] MEDS: METOCLOPRAMIDE HCL 10 MG/10 ML UDC GT SCH ×3 (05:26→21:30)
[2019-01-09] MEDS: INSULIN REGULAR, HUMAN 100 UNIT/ML 3 ML VIAL SQ PRN ×2 (05:27→18:06)
[2019-01-09 07:47] VITALS: BP 131/67
[2019-01-09] MEDS: SIMETHICONE SUSP 40 MG/0.6 ML BOTTLE GT SCH ×2 (08:00→20:00)
[2019-01-09] MEDS: Z GUARD REMEDY 4 OZ OINT TP SCH ×2 (09:00→21:30)
[2019-01-09] MEDS: HYDROGEN PEROXIDE 480 ML BOTTLE TP SCH ×2 (09:00→19:09)
[2019-01-09] MEDS: DOCUSATE SODIUM LIQ 100 MG/10 ML UDC GT SCH (09:10)
[2019-01-09] MEDS: FERROUS SULFATE - FOR SA ONLY 330 MG/7.5 ML UDC GT SCH ×2 (09:10→16:29)
[2019-01-09] MEDS: PROSOURCE DIETARY LIQUID 30 ML LIQUID GT SCH ×2 (09:11→16:29)
[2019-01-09] MEDS: LEVETIRACETAM SOL (5 ML) 100 MG/ML UDC GT SCH ×2 (09:11→21:30)
[2019-01-09] MEDS: ACIDOPHILUS/BULGARICUS 1 EACH TAB.CHEW GT SCH ×2 (09:11→16:29)
[2019-01-09] MEDS: CALCIUM CARBONATE 500 MG TAB.CHEW GT SCH ×2 (09:12→16:29)
[2019-01-09] MEDS: MULTIVIT W/MINERALS 1 TAB TABLET GT SCH (09:12)
[2019-01-09] MEDS: TRILEPTAL GT SCH ×2 (09:12→21:30)
[2019-01-09] MEDS: [UNRECOGNIZED DRUG - OTHER] TP SCH ×2 (09:18→21:30)
[2019-01-09] MEDS: VIT A TP SCH ×2 (09:18→21:30)
[2019-01-09] MEDS: CEFEPIME 2 GM in IV D5W 100 ML IV SCH (13:00)
[2019-01-09] MEDS: ASCORBIC ACID 500 MG TABLET GT SCH (21:30)
[2019-01-09 21:32] VITALS: BP 128/62
--- NOTE | 2019-01-09 23:16 | NUR ---
PATIENT RECEIVED ON TRACH TO VENT WITH SETTINGS OF AC 30, 550 VT, 30%, +5. SUCTIONED WITH LAVAGE FOR MINIMAL, THIN, WHITE-CREAM SECRETIONS. GIVEN IN-LINE TREATMENTS WITH NO ADVERSE REACTIONS. AMBU BAG AT BEDSIDE. VENT ALARM AUDIBLE AND VISIBLE. Addendum: 01/09/19 at 2317 by SARA MOLINA RT Amended: Links added.
[2019-01-10] MEDS: ALBUTEROL FS 2.5 MG/3 ML VIAL.NEB NEB SCH ×4 (01:33→19:37)
[2019-01-10] MEDS: GLUCERNA 1.2 1,000 ML BOTTLE GT PRN (04:42)
[2019-01-10] MEDS: BLOOD SUGAR DIAGNOSTIC 1 EACH STRIP IN SCH ×2 (05:11→18:17)
[2019-01-10] MEDS: GABAPENTIN 300 MG CAPSULE GT SCH ×3 (05:11→21:24)
[2019-01-10] MEDS: DEXILANT 30 MG GT SCH (05:11)
[2019-01-10] MEDS: METOCLOPRAMIDE HCL 10 MG/10 ML UDC GT SCH ×3 (05:11→21:24)
[2019-01-10] MEDS: INSULIN REGULAR, HUMAN 100 UNIT/ML 3 ML VIAL SQ PRN ×2 (05:12→18:19)
[2019-01-10 07:44] VITALS: BP 138/73
[2019-01-10] MEDS: SIMETHICONE SUSP 40 MG/0.6 ML BOTTLE GT SCH ×2 (08:48→20:00)
[2019-01-10] MEDS: LEVETIRACETAM SOL (5 ML) 100 MG/ML UDC GT SCH ×2 (08:48→21:24)
[2019-01-10] MEDS: FERROUS SULFATE - FOR SA ONLY 330 MG/7.5 ML UDC GT SCH ×2 (08:48→16:44)
[2019-01-10] MEDS: DOCUSATE SODIUM LIQ 100 MG/10 ML UDC GT SCH (08:48)
[2019-01-10] MEDS: ACIDOPHILUS/BULGARICUS 1 EACH TAB.CHEW GT SCH ×2 (08:48→16:44)
[2019-01-10] MEDS: MULTIVIT W/MINERALS 1 TAB TABLET GT SCH (08:48)
[2019-01-10] MEDS: PROSOURCE DIETARY LIQUID 30 ML LIQUID GT SCH ×2 (08:48→16:44)
[2019-01-10] MEDS: TRILEPTAL GT SCH ×2 (08:48→21:24)
[2019-01-10] MEDS: CALCIUM CARBONATE 500 MG TAB.CHEW GT SCH ×2 (08:48→16:44)
[2019-01-10] MEDS: HYDROGEN PEROXIDE 480 ML BOTTLE TP SCH ×2 (09:00→19:37)
[2019-01-10] MEDS: [UNRECOGNIZED DRUG - OTHER] TP SCH ×2 (09:45→21:24)
[2019-01-10] MEDS: Z GUARD REMEDY 4 OZ OINT TP SCH ×2 (09:45→21:24)
[2019-01-10] MEDS: VIT A TP SCH ×2 (09:45→21:24)
[2019-01-10] MEDS: CEFEPIME 2 GM in IV D5W 100 ML IV SCH (12:49)
[2019-01-10 20:59] VITALS: BP 133/74
[2019-01-10] MEDS: ASCORBIC ACID 500 MG TABLET GT SCH (21:24)
[2019-01-11] MEDS: ALBUTEROL FS 2.5 MG/3 ML VIAL.NEB NEB SCH ×4 (01:05→19:52)
[2019-01-11] MEDS: GABAPENTIN 300 MG CAPSULE GT SCH ×3 (05:50→20:07)
[2019-01-11] MEDS: DEXILANT 30 MG GT SCH (05:50)
[2019-01-11] MEDS: METOCLOPRAMIDE HCL 10 MG/10 ML UDC GT SCH ×3 (05:50→20:07)
[2019-01-11] MEDS: BLOOD SUGAR DIAGNOSTIC 1 EACH STRIP IN SCH ×2 (05:50→17:46)
[2019-01-11] MEDS: INSULIN REGULAR, HUMAN 100 UNIT/ML 3 ML VIAL SQ PRN ×2 (05:52→17:47)
[2019-01-11 07:27] VITALS: BP 122/71
[2019-01-11] MEDS: FERROUS SULFATE - FOR SA ONLY 330 MG/7.5 ML UDC GT SCH ×2 (08:34→16:58)
[2019-01-11] MEDS: DOCUSATE SODIUM LIQ 100 MG/10 ML UDC GT SCH (08:34)
[2019-01-11] MEDS: LEVETIRACETAM SOL (5 ML) 100 MG/ML UDC GT SCH ×2 (08:34→20:07)
[2019-01-11] MEDS: SIMETHICONE SUSP 40 MG/0.6 ML BOTTLE GT SCH ×2 (08:34→20:07)
[2019-01-11] MEDS: VIT A TP SCH ×2 (08:35→20:07)
[2019-01-11] MEDS: TRILEPTAL GT SCH ×2 (08:35→20:07)
[2019-01-11] MEDS: CALCIUM CARBONATE 500 MG TAB.CHEW GT SCH ×2 (08:35→16:58)
[2019-01-11] MEDS: ACIDOPHILUS/BULGARICUS 1 EACH TAB.CHEW GT SCH ×2 (08:35→16:58)
[2019-01-11] MEDS: [UNRECOGNIZED DRUG - OTHER] TP SCH ×2 (08:35→20:07)
[2019-01-11] MEDS: Z GUARD REMEDY 4 OZ OINT TP SCH ×2 (08:35→20:08)
[2019-01-11] MEDS: MULTIVIT W/MINERALS 1 TAB TABLET GT SCH (08:35)
[2019-01-11] MEDS: PROSOURCE DIETARY LIQUID 30 ML LIQUID GT SCH ×2 (08:35→16:58)
[2019-01-11] MEDS: HYDROGEN PEROXIDE 480 ML BOTTLE TP SCH ×2 (09:00→20:54)
--- NOTE | 2019-01-11 09:25 | NUR ---
Invitation to Family Support Group: SW called Residents Sister, Beckie Chu [phone] to invite them to attend the family support group being held tomorrow January 12, 2019 from 11 am-12pm in the old admin conference room in the first floor. Per Beckie, she will try to make it to the support group as she has never been to one. No further action required.
[2019-01-11] MEDS: GLUCERNA 1.2 1,000 ML BOTTLE GT PRN (18:57)
[2019-01-11] MEDS: ASCORBIC ACID 500 MG TABLET GT SCH (20:07)
[2019-01-11 20:40] VITALS: BP 135/75
[2019-01-12] MEDS: ALBUTEROL FS 2.5 MG/3 ML VIAL.NEB NEB SCH ×4 (01:31→20:10)
[2019-01-12] MEDS: GABAPENTIN 300 MG CAPSULE GT SCH ×3 (05:01→20:07)
[2019-01-12] MEDS: DEXILANT 30 MG GT SCH (05:01)
[2019-01-12] MEDS: METOCLOPRAMIDE HCL 10 MG/10 ML UDC GT SCH ×3 (05:01→20:07)
[2019-01-12] MEDS: BLOOD SUGAR DIAGNOSTIC 1 EACH STRIP IN SCH ×2 (05:50→17:16)
[2019-01-12] MEDS: INSULIN REGULAR, HUMAN 100 UNIT/ML 3 ML VIAL SQ PRN ×2 (05:51→17:21)
[2019-01-12 07:36] VITALS: BP 138/52
[2019-01-12] MEDS: HYDROGEN PEROXIDE 480 ML BOTTLE TP SCH ×2 (08:35→21:39)
[2019-01-12] MEDS: CALCIUM CARBONATE 500 MG TAB.CHEW GT SCH ×2 (08:37→17:16)
[2019-01-12] MEDS: PROSOURCE DIETARY LIQUID 30 ML LIQUID GT SCH ×2 (08:37→17:16)
[2019-01-12] MEDS: FERROUS SULFATE - FOR SA ONLY 330 MG/7.5 ML UDC GT SCH ×2 (08:37→17:16)
[2019-01-12] MEDS: TRILEPTAL GT SCH ×2 (08:37→20:07)
[2019-01-12] MEDS: MULTIVIT W/MINERALS 1 TAB TABLET GT SCH (08:37)
[2019-01-12] MEDS: DOCUSATE SODIUM LIQ 100 MG/10 ML UDC GT SCH (08:37)
[2019-01-12] MEDS: SIMETHICONE SUSP 40 MG/0.6 ML BOTTLE GT SCH ×2 (08:37→20:07)
[2019-01-12] MEDS: ACIDOPHILUS/BULGARICUS 1 EACH TAB.CHEW GT SCH ×2 (08:37→17:16)
[2019-01-12] MEDS: LEVETIRACETAM SOL (5 ML) 100 MG/ML UDC GT SCH ×2 (08:37→20:07)
[2019-01-12] MEDS: Z GUARD REMEDY 4 OZ OINT TP SCH ×2 (09:00→20:07)
[2019-01-12] MEDS: [UNRECOGNIZED DRUG - OTHER] TP SCH ×2 (09:00→20:07)
[2019-01-12] MEDS: VIT A TP SCH ×2 (09:00→20:07)
[2019-01-12] MEDS: GLUCERNA 1.2 1,000 ML BOTTLE GT PRN (17:20)
[2019-01-12] MEDS: ASCORBIC ACID 500 MG TABLET GT SCH (20:07)
[2019-01-12 21:25] VITALS: BP 138/84
[2019-01-13] MEDS: ALBUTEROL FS 2.5 MG/3 ML VIAL.NEB NEB SCH ×4 (01:37→19:44)
--- NOTE | 2019-01-13 01:39 | NUR ---
RT Pt fariha remains on a [facility] vent t/o the night. No resp distress noted. svn given inline. pt sx prn Addendum: 01/13/19 at 0140 by ASHLI QUEZADA RT Amended: Links added.
[2019-01-13] MEDS: GABAPENTIN 300 MG CAPSULE GT SCH ×3 (05:08→20:15)
[2019-01-13] MEDS: METOCLOPRAMIDE HCL 10 MG/10 ML UDC GT SCH ×3 (05:08→20:15)
[2019-01-13] MEDS: DEXILANT 30 MG GT SCH (05:08)
[2019-01-13] MEDS: BLOOD SUGAR DIAGNOSTIC 1 EACH STRIP IN SCH ×2 (05:45→17:18)
[2019-01-13] MEDS: INSULIN REGULAR, HUMAN 100 UNIT/ML 3 ML VIAL SQ PRN ×2 (05:46→17:20)
[2019-01-13 07:50] VITALS: BP 126/66
[2019-01-13] MEDS: SIMETHICONE SUSP 40 MG/0.6 ML BOTTLE GT SCH ×2 (08:00→20:15)
[2019-01-13] MEDS: HYDROGEN PEROXIDE 480 ML BOTTLE TP SCH ×2 (09:00→20:15)
[2019-01-13] MEDS: TRILEPTAL GT SCH ×2 (09:41→20:15)
[2019-01-13] MEDS: MULTIVIT W/MINERALS 1 TAB TABLET GT SCH (09:41)
[2019-01-13] MEDS: ACIDOPHILUS/BULGARICUS 1 EACH TAB.CHEW GT SCH ×2 (09:41→17:18)
[2019-01-13] MEDS: DOCUSATE SODIUM LIQ 100 MG/10 ML UDC GT SCH (09:41)
[2019-01-13] MEDS: [UNRECOGNIZED DRUG - OTHER] TP SCH ×2 (09:41→20:15)
[2019-01-13] MEDS: VIT A TP SCH ×2 (09:41→20:15)
[2019-01-13] MEDS: FERROUS SULFATE - FOR SA ONLY 330 MG/7.5 ML UDC GT SCH ×2 (09:41→17:18)
[2019-01-13] MEDS: CALCIUM CARBONATE 500 MG TAB.CHEW GT SCH ×2 (09:41→17:18)
[2019-01-13] MEDS: PROSOURCE DIETARY LIQUID 30 ML LIQUID GT SCH ×2 (09:41→17:18)
[2019-01-13] MEDS: LEVETIRACETAM SOL (5 ML) 100 MG/ML UDC GT SCH ×2 (09:41→20:15)
[2019-01-13] MEDS: Z GUARD REMEDY 4 OZ OINT TP SCH ×2 (09:41→20:15)
[2019-01-13] MEDS: GLUCERNA 1.2 1,000 ML BOTTLE GT PRN (12:05)
[2019-01-13] MEDS: ASCORBIC ACID 500 MG TABLET GT SCH (20:15)
[2019-01-13 20:46] VITALS: BP 140/74
[2019-01-14] MEDS: ALBUTEROL FS 2.5 MG/3 ML VIAL.NEB NEB SCH ×4 (00:40→19:43)
[2019-01-14] MEDS: GLUCERNA 1.2 1,000 ML BOTTLE GT PRN (05:22)
[2019-01-14] MEDS: GABAPENTIN 300 MG CAPSULE GT SCH ×3 (05:22→20:39)
[2019-01-14] MEDS: DEXILANT 30 MG GT SCH (05:22)
[2019-01-14] MEDS: BLOOD SUGAR DIAGNOSTIC 1 EACH STRIP IN SCH ×2 (05:22→17:43)
[2019-01-14] MEDS: METOCLOPRAMIDE HCL 10 MG/10 ML UDC GT SCH ×3 (05:22→20:39)
[2019-01-14] MEDS: INSULIN REGULAR, HUMAN 100 UNIT/ML 3 ML VIAL SQ PRN ×2 (05:23→17:44)
[2019-01-14 07:32] VITALS: BP 131/67
[2019-01-14] MEDS: SIMETHICONE SUSP 40 MG/0.6 ML BOTTLE GT SCH ×2 (08:00→20:39)
[2019-01-14] MEDS: HYDROGEN PEROXIDE 480 ML BOTTLE TP SCH ×2 (09:00→20:39)
[2019-01-14] MEDS: DOCUSATE SODIUM LIQ 100 MG/10 ML UDC GT SCH (09:43)
[2019-01-14] MEDS: VIT A TP SCH ×2 (09:43→20:39)
[2019-01-14] MEDS: [UNRECOGNIZED DRUG - OTHER] TP SCH ×2 (09:43→20:39)
[2019-01-14] MEDS: FERROUS SULFATE - FOR SA ONLY 330 MG/7.5 ML UDC GT SCH ×2 (09:43→17:43)
[2019-01-14] MEDS: Z GUARD REMEDY 4 OZ OINT TP SCH ×2 (09:43→20:39)
[2019-01-14] MEDS: CALCIUM CARBONATE 500 MG TAB.CHEW GT SCH ×2 (09:43→17:43)
[2019-01-14] MEDS: LEVETIRACETAM SOL (5 ML) 100 MG/ML UDC GT SCH ×2 (09:43→20:39)
[2019-01-14] MEDS: PROSOURCE DIETARY LIQUID 30 ML LIQUID GT SCH ×2 (09:43→17:43)
[2019-01-14] MEDS: MULTIVIT W/MINERALS 1 TAB TABLET GT SCH (09:43)
[2019-01-14] MEDS: TRILEPTAL GT SCH ×2 (09:43→20:39)
[2019-01-14] MEDS: ACIDOPHILUS/BULGARICUS 1 EACH TAB.CHEW GT SCH ×2 (09:43→17:43)
--- NOTE | 2019-01-14 10:54 | NUR ---
Dr. Luis notified that patient's blood sugar has been trending high , currently patient has no long acting medication but with Regular insulin coverage per sliding scale Q 12. New order given for HbgAic.
[2019-01-14] MEDS: ASCORBIC ACID 500 MG TABLET GT SCH (20:39)
[2019-01-14 20:43] VITALS: BP 143/86
[2019-01-15] MEDS: ALBUTEROL FS 2.5 MG/3 ML VIAL.NEB NEB SCH ×4 (01:29→19:23)
[2019-01-15] MEDS: BLOOD SUGAR DIAGNOSTIC 1 EACH STRIP IN SCH ×2 (05:45→17:40)
[2019-01-15] MEDS: GLUCERNA 1.2 1,000 ML BOTTLE GT PRN (05:45)
[2019-01-15] MEDS: DEXILANT 30 MG GT SCH (05:45)
[2019-01-15] MEDS: GABAPENTIN 300 MG CAPSULE GT SCH ×3 (05:45→20:31)
[2019-01-15] MEDS: METOCLOPRAMIDE HCL 10 MG/10 ML UDC GT SCH ×3 (05:45→20:31)
[2019-01-15] MEDS: MAGNESIUM HYDROXIDE 30 ML UDC GT PRN (05:45)
[2019-01-15] MEDS: INSULIN REGULAR, HUMAN 100 UNIT/ML 3 ML VIAL SQ PRN ×2 (05:46→17:40)
[2019-01-15 07:42] VITALS: BP 128/69
[2019-01-15] MEDS: SIMETHICONE SUSP 40 MG/0.6 ML BOTTLE GT SCH ×2 (08:00→20:31)
[2019-01-15] MEDS: [UNRECOGNIZED DRUG - OTHER] TP SCH ×2 (09:00→20:32)
[2019-01-15] MEDS: VIT A TP SCH ×2 (09:00→20:32)
[2019-01-15] MEDS: HYDROGEN PEROXIDE 480 ML BOTTLE TP SCH ×2 (09:00→20:32)
[2019-01-15] MEDS: Z GUARD REMEDY 4 OZ OINT TP SCH ×2 (09:00→20:32)
[2019-01-15] MEDS: LEVETIRACETAM SOL (5 ML) 100 MG/ML UDC GT SCH ×2 (09:09→20:31)
[2019-01-15] MEDS: FERROUS SULFATE - FOR SA ONLY 330 MG/7.5 ML UDC GT SCH ×2 (09:09→17:25)
[2019-01-15] MEDS: DOCUSATE SODIUM LIQ 100 MG/10 ML UDC GT SCH (09:09)
[2019-01-15] MEDS: MULTIVIT W/MINERALS 1 TAB TABLET GT SCH (09:10)
[2019-01-15] MEDS: PROSOURCE DIETARY LIQUID 30 ML LIQUID GT SCH ×2 (09:10→17:26)
[2019-01-15] MEDS: TRILEPTAL GT SCH ×2 (09:10→20:31)
[2019-01-15] MEDS: ACIDOPHILUS/BULGARICUS 1 EACH TAB.CHEW GT SCH ×2 (09:10→17:25)
[2019-01-15] MEDS: CALCIUM CARBONATE 500 MG TAB.CHEW GT SCH ×2 (09:10→17:26)
--- NOTE | 2019-01-15 17:59 | NUR ---
Notified Dr. Luis of HbgAIc result WNL 5.9, NNO given, left a message to resident's sister Beckie informing her of the test result.
[2019-01-15 20:20] VITALS: BP 140/62
[2019-01-15] MEDS: ASCORBIC ACID 500 MG TABLET GT SCH (20:31)
[2019-01-16] MEDS: ALBUTEROL FS 2.5 MG/3 ML VIAL.NEB NEB SCH ×4 (01:43→19:34)
[2019-01-16] MEDS: BLOOD SUGAR DIAGNOSTIC 1 EACH STRIP IN SCH ×2 (05:16→18:01)
[2019-01-16] MEDS: GABAPENTIN 300 MG CAPSULE GT SCH ×3 (05:16→20:37)
[2019-01-16] MEDS: GLUCERNA 1.2 1,000 ML BOTTLE GT PRN ×2 (05:16→23:46)
[2019-01-16] MEDS: METOCLOPRAMIDE HCL 10 MG/10 ML UDC GT SCH ×3 (05:16→20:28)
[2019-01-16] MEDS: DEXILANT 30 MG GT SCH (05:16)
[2019-01-16] MEDS: INSULIN REGULAR, HUMAN 100 UNIT/ML 3 ML VIAL SQ PRN ×2 (05:17→18:04)
[2019-01-16 07:30] VITALS: BP 121/72
[2019-01-16] MEDS: DOCUSATE SODIUM LIQ 100 MG/10 ML UDC GT SCH (08:36)
[2019-01-16] MEDS: FERROUS SULFATE - FOR SA ONLY 330 MG/7.5 ML UDC GT SCH ×2 (08:36→16:38)
[2019-01-16] MEDS: SIMETHICONE SUSP 40 MG/0.6 ML BOTTLE GT SCH ×2 (08:36→20:19)
[2019-01-16] MEDS: ACIDOPHILUS/BULGARICUS 1 EACH TAB.CHEW GT SCH ×2 (08:36→16:38)
[2019-01-16] MEDS: LEVETIRACETAM SOL (5 ML) 100 MG/ML UDC GT SCH ×2 (08:36→20:20)
[2019-01-16] MEDS: TRILEPTAL GT SCH ×2 (08:36→20:27)
[2019-01-16] MEDS: Z GUARD REMEDY 4 OZ OINT TP SCH ×2 (08:37→21:55)
[2019-01-16] MEDS: CALCIUM CARBONATE 500 MG TAB.CHEW GT SCH ×2 (08:37→16:38)
[2019-01-16] MEDS: [UNRECOGNIZED DRUG - OTHER] TP SCH ×2 (08:37→21:58)
[2019-01-16] MEDS: MULTIVIT W/MINERALS 1 TAB TABLET GT SCH (08:37)
[2019-01-16] MEDS: VIT A TP SCH ×2 (08:37→21:58)
[2019-01-16] MEDS: PROSOURCE DIETARY LIQUID 30 ML LIQUID GT SCH ×2 (08:37→16:38)
[2019-01-16] MEDS: HYDROGEN PEROXIDE 480 ML BOTTLE TP SCH ×2 (09:00→21:03)
--- NOTE | 2019-01-16 16:26 | NUR ---
RT NOTE PT REMAINS MECHANICALLY VENTILATED VIA CUFFED TRACHEOSTOMY TUBE. CUFF INFLATED. TRACH TUBE MIDLINE AND SECURE. VENTILATOR SETTINGS PRESCRIBED. ALARMS SET PER PROTOCOL AND AUDIBLE. VENT PLUGGED IN TO RED OUTLET. AMBU BAG AT BED SIDE. NO DISTRESS NOTED. Addendum: 01/16/19 at 1628 by MAXI BRADY RT Amended: Links added.
[2019-01-16 19:56] VITALS: BP 123/64
[2019-01-16] MEDS: ASCORBIC ACID 500 MG TABLET GT SCH (20:28)
[2019-01-17] MEDS: ALBUTEROL FS 2.5 MG/3 ML VIAL.NEB NEB SCH ×4 (01:28→20:09)
[2019-01-17] MEDS: METOCLOPRAMIDE HCL 10 MG/10 ML UDC GT SCH ×3 (04:07→20:04)
[2019-01-17] MEDS: GABAPENTIN 300 MG CAPSULE GT SCH ×3 (04:09→20:04)
[2019-01-17] MEDS: DEXILANT 30 MG GT SCH (05:03)
[2019-01-17] MEDS: BLOOD SUGAR DIAGNOSTIC 1 EACH STRIP IN SCH ×2 (05:55→18:11)
[2019-01-17] MEDS: INSULIN REGULAR, HUMAN 100 UNIT/ML 3 ML VIAL SQ PRN ×2 (05:57→18:16)
[2019-01-17] MEDS: SIMETHICONE SUSP 40 MG/0.6 ML BOTTLE GT SCH ×2 (08:00→20:03)
[2019-01-17 08:09] VITALS: BP 130/68
[2019-01-17] MEDS: [UNRECOGNIZED DRUG - OTHER] TP SCH ×2 (09:00→20:04)
[2019-01-17] MEDS: VIT A TP SCH ×2 (09:00→20:04)
[2019-01-17] MEDS: LEVETIRACETAM SOL (5 ML) 100 MG/ML UDC GT SCH ×2 (09:00→20:03)
[2019-01-17] MEDS: MULTIVIT W/MINERALS 1 TAB TABLET GT SCH (09:00)
[2019-01-17] MEDS: HYDROGEN PEROXIDE 480 ML BOTTLE TP SCH ×2 (09:00→20:09)
[2019-01-17] MEDS: ACIDOPHILUS/BULGARICUS 1 EACH TAB.CHEW GT SCH ×2 (09:00→17:23)
[2019-01-17] MEDS: DOCUSATE SODIUM LIQ 100 MG/10 ML UDC GT SCH (09:00)
[2019-01-17] MEDS: CALCIUM CARBONATE 500 MG TAB.CHEW GT SCH ×2 (09:00→17:23)
[2019-01-17] MEDS: PROSOURCE DIETARY LIQUID 30 ML LIQUID GT SCH ×2 (09:00→17:23)
[2019-01-17] MEDS: FERROUS SULFATE - FOR SA ONLY 330 MG/7.5 ML UDC GT SCH ×2 (09:00→17:23)
[2019-01-17] MEDS: Z GUARD REMEDY 4 OZ OINT TP SCH ×2 (09:00→20:04)
[2019-01-17] MEDS: TRILEPTAL GT SCH ×2 (09:00→20:04)
[2019-01-17] MEDS: ASCORBIC ACID 500 MG TABLET GT SCH (20:04)
[2019-01-17] MEDS: GLUCERNA 1.2 1,000 ML BOTTLE GT PRN (20:04)
[2019-01-17 20:39] VITALS: BP 104/72
[2019-01-18] MEDS: ALBUTEROL FS 2.5 MG/3 ML VIAL.NEB NEB SCH ×4 (02:09→19:50)
[2019-01-18] MEDS: METOCLOPRAMIDE HCL 10 MG/10 ML UDC GT SCH ×3 (05:10→20:11)
[2019-01-18] MEDS: GABAPENTIN 300 MG CAPSULE GT SCH ×3 (05:10→20:10)
[2019-01-18] MEDS: DEXILANT 30 MG GT SCH (05:10)
[2019-01-18] MEDS: BLOOD SUGAR DIAGNOSTIC 1 EACH STRIP IN SCH ×2 (05:55→18:10)
[2019-01-18] MEDS: INSULIN REGULAR, HUMAN 100 UNIT/ML 3 ML VIAL SQ PRN ×2 (05:56→18:15)
[2019-01-18 07:36] VITALS: BP 129/49
[2019-01-18] MEDS: SIMETHICONE SUSP 40 MG/0.6 ML BOTTLE GT SCH ×2 (08:00→20:10)
[2019-01-18] MEDS: HYDROGEN PEROXIDE 480 ML BOTTLE TP SCH ×2 (08:29→19:50)
[2019-01-18] MEDS: TRILEPTAL GT SCH ×2 (09:00→20:10)
[2019-01-18] MEDS: PROSOURCE DIETARY LIQUID 30 ML LIQUID GT SCH ×2 (09:00→17:07)
[2019-01-18] MEDS: MULTIVIT W/MINERALS 1 TAB TABLET GT SCH (09:00)
[2019-01-18] MEDS: [UNRECOGNIZED DRUG - OTHER] TP SCH ×2 (09:00→20:20)
[2019-01-18] MEDS: VIT A TP SCH ×2 (09:00→20:20)
[2019-01-18] MEDS: LEVETIRACETAM SOL (5 ML) 100 MG/ML UDC GT SCH ×2 (09:00→20:10)
[2019-01-18] MEDS: ACIDOPHILUS/BULGARICUS 1 EACH TAB.CHEW GT SCH ×2 (09:00→17:07)
[2019-01-18] MEDS: DOCUSATE SODIUM LIQ 100 MG/10 ML UDC GT SCH (09:00)
[2019-01-18] MEDS: Z GUARD REMEDY 4 OZ OINT TP SCH ×2 (09:00→20:20)
[2019-01-18] MEDS: FERROUS SULFATE - FOR SA ONLY 330 MG/7.5 ML UDC GT SCH ×2 (09:00→17:07)
[2019-01-18] MEDS: CALCIUM CARBONATE 500 MG TAB.CHEW GT SCH ×2 (09:00→17:07)
--- NOTE | 2019-01-18 15:38 | NUR ---
IDT Care Plan Conference Invitation to family: STEPHEN communicated to pt.s Sister, Beckie Chu [phone] that the next IDT meeting will be taking place this January 21 from 12:30-1:30pm in the [facility] activities room. Per Beckie, she will be in attendance.
[2019-01-18] MEDS: GLUCERNA 1.2 1,000 ML BOTTLE GT PRN (15:58)
[2019-01-18] MEDS: ASCORBIC ACID 500 MG TABLET GT SCH (20:11)
[2019-01-18 20:24] VITALS: BP 129/71
[2019-01-19] MEDS: ALBUTEROL FS 2.5 MG/3 ML VIAL.NEB NEB SCH ×4 (01:30→19:39)
[2019-01-19] MEDS: DEXILANT 30 MG GT SCH (05:07)
[2019-01-19] MEDS: METOCLOPRAMIDE HCL 10 MG/10 ML UDC GT SCH ×3 (05:07→20:10)
[2019-01-19] MEDS: GABAPENTIN 300 MG CAPSULE GT SCH ×3 (05:07→20:09)
[2019-01-19] MEDS: BLOOD SUGAR DIAGNOSTIC 1 EACH STRIP IN SCH ×2 (05:41→17:12)
[2019-01-19] MEDS: INSULIN REGULAR, HUMAN 100 UNIT/ML 3 ML VIAL SQ PRN ×2 (05:42→17:13)
[2019-01-19 07:48] VITALS: BP 121/70
[2019-01-19 07:56] VITALS: BP 121/70
[2019-01-19] MEDS: SIMETHICONE SUSP 40 MG/0.6 ML BOTTLE GT SCH ×2 (08:00→20:09)
--- NOTE | 2019-01-19 08:30 | NUR ---
Seen and examined by Dr. Luis, no new order given.
[2019-01-19] MEDS: HYDROGEN PEROXIDE 480 ML BOTTLE TP SCH ×2 (09:00→19:39)
[2019-01-19] MEDS: [UNRECOGNIZED DRUG - OTHER] TP SCH ×2 (09:26→20:10)
[2019-01-19] MEDS: TRILEPTAL GT SCH ×2 (09:26→20:10)
[2019-01-19] MEDS: ACIDOPHILUS/BULGARICUS 1 EACH TAB.CHEW GT SCH ×2 (09:26→17:12)
[2019-01-19] MEDS: DOCUSATE SODIUM LIQ 100 MG/10 ML UDC GT SCH (09:26)
[2019-01-19] MEDS: CALCIUM CARBONATE 500 MG TAB.CHEW GT SCH ×2 (09:26→17:12)
[2019-01-19] MEDS: PROSOURCE DIETARY LIQUID 30 ML LIQUID GT SCH ×2 (09:26→17:12)
[2019-01-19] MEDS: MULTIVIT W/MINERALS 1 TAB TABLET GT SCH (09:26)
[2019-01-19] MEDS: FERROUS SULFATE - FOR SA ONLY 330 MG/7.5 ML UDC GT SCH ×2 (09:26→17:12)
[2019-01-19] MEDS: VIT A TP SCH ×2 (09:26→20:10)
[2019-01-19] MEDS: Z GUARD REMEDY 4 OZ OINT TP SCH ×2 (09:26→20:10)
[2019-01-19] MEDS: LEVETIRACETAM SOL (5 ML) 100 MG/ML UDC GT SCH ×2 (09:26→20:09)
[2019-01-19] MEDS: GLUCERNA 1.2 1,000 ML BOTTLE GT PRN (12:24)
--- NOTE | 2019-01-19 13:00 | NUR ---
Seen and examined by Anna Vargas, no new order given.
--- NOTE | 2019-01-19 19:40 | NUR ---
RT NOTE: RECEIVED TRACH PT ON [facility] VENT ON NOTED SETTINGS PER MD ORDERS. TRACH IS PATENT AND SECURED. TRACH CARE DONE. SUSPENSION CORD TIER DONE. Q6 BREATHING TX GIVEN WITH NO ADVERSE REACTION NOTED. SX DONE PRN. VENT PLUGGED INTO RED OUTLET. ALARMS ON AND AUDIBLE. KATHARINEU BAG @ BEDSIDE. NO RESP DISTRESS AT THIS TIME. WILL CONT TO MONITOR PT. Addendum: 01/20/19 at 0309 by QIANA MARY RT Amended: Links added.
[2019-01-19] MEDS: ASCORBIC ACID 500 MG TABLET GT SCH (20:10)
[2019-01-19 20:24] VITALS: BP 138/77
[2019-01-20] MEDS: ALBUTEROL FS 2.5 MG/3 ML VIAL.NEB NEB SCH ×4 (01:54→19:53)
[2019-01-20] MEDS: DEXILANT 30 MG GT SCH (05:12)
[2019-01-20] MEDS: GABAPENTIN 300 MG CAPSULE GT SCH ×3 (05:12→21:14)
[2019-01-20] MEDS: METOCLOPRAMIDE HCL 10 MG/10 ML UDC GT SCH ×3 (05:12→21:14)
[2019-01-20] MEDS: BLOOD SUGAR DIAGNOSTIC 1 EACH STRIP IN SCH ×2 (05:53→17:35)
[2019-01-20] MEDS: INSULIN REGULAR, HUMAN 100 UNIT/ML 3 ML VIAL SQ PRN ×2 (05:54→17:40)
[2019-01-20] MEDS: SIMETHICONE SUSP 40 MG/0.6 ML BOTTLE GT SCH ×2 (08:00→20:00)
[2019-01-20 08:01] VITALS: BP 137/71
[2019-01-20] MEDS: HYDROGEN PEROXIDE 480 ML BOTTLE TP SCH ×2 (09:00→20:31)
[2019-01-20] MEDS: ACIDOPHILUS/BULGARICUS 1 EACH TAB.CHEW GT SCH ×2 (09:27→17:35)
[2019-01-20] MEDS: CALCIUM CARBONATE 500 MG TAB.CHEW GT SCH ×2 (09:27→17:35)
[2019-01-20] MEDS: FERROUS SULFATE - FOR SA ONLY 330 MG/7.5 ML UDC GT SCH ×2 (09:27→17:35)
[2019-01-20] MEDS: [UNRECOGNIZED DRUG - OTHER] TP SCH ×2 (09:27→21:15)
[2019-01-20] MEDS: LEVETIRACETAM SOL (5 ML) 100 MG/ML UDC GT SCH ×2 (09:27→21:14)
[2019-01-20] MEDS: TRILEPTAL GT SCH ×2 (09:27→21:14)
[2019-01-20] MEDS: MULTIVIT W/MINERALS 1 TAB TABLET GT SCH (09:27)
[2019-01-20] MEDS: Z GUARD REMEDY 4 OZ OINT TP SCH ×2 (09:27→21:15)
[2019-01-20] MEDS: PROSOURCE DIETARY LIQUID 30 ML LIQUID GT SCH ×2 (09:27→17:35)
[2019-01-20] MEDS: DOCUSATE SODIUM LIQ 100 MG/10 ML UDC GT SCH (09:27)
[2019-01-20] MEDS: VIT A TP SCH ×2 (09:27→21:15)
--- NOTE | 2019-01-20 11:05 | NUR ---
Dental Appointment: STEPHEN called Dr. Fischer office [[phone]] and spoke to Mystery to schedule residents annual Dental Cleaning appointment. Per Mystery, the dentist, Dr. Elliott is available to come to [facility] and provide cleaning on 02/02/19 after 12 noon. STEPHEN faxed pt.s facesheet to FAX: [phone] per Mysterys request. STEPHEN informed family and charge nurse.
[2019-01-20] MEDS: GLUCERNA 1.2 1,000 ML BOTTLE GT PRN (13:00)
[2019-01-20 20:35] VITALS: BP 133/68
--- NOTE | 2019-01-20 21:10 | NUR ---
SEEN BY CARLY BOLES WITH NEW ORDERS TO DC ACCU CHECK Q 12 AND CHANGE TO Q4HRS FOR 3 DAYS WITH SLIDING SCALE CARRIED OUT.
[2019-01-20] MEDS: ASCORBIC ACID 500 MG TABLET GT SCH (21:15)
[2019-01-21] MEDS: BLOOD SUGAR DIAGNOSTIC 1 EACH STRIP IN SCH ×6 (00:24→21:54)
[2019-01-21] MEDS: INSULIN REGULAR, HUMAN 100 UNIT/ML 10 ML VIAL SQ SCH ×2 (00:24→05:51)
[2019-01-21] MEDS: ALBUTEROL FS 2.5 MG/3 ML VIAL.NEB NEB SCH ×4 (00:34→19:45)
[2019-01-21] MEDS ORDERED: DEXTROSE 50%-WATER 50 ML DISP.SYRIN IVP SCH (01:00)
--- NOTE | 2019-01-21 04:33 | NUR ---
PT RCVD TRACH'D ON MECHANICAL VENT WITH CHARTED SETTINGS. PT APRIL TX WELL. SX DONE. PT TRACH IS PATENT AND SECURE. VENT ALARMS APPEAR TO BE FUNCTIONING PROPERLY. VENT PLUGGED INTO RED OUTLET. AMBU BAG AT BEDSIDE. Addendum: 01/21/19 at 0434 by MICH AVILA RT Amended: Links added.
[2019-01-21] MEDS: METOCLOPRAMIDE HCL 10 MG/10 ML UDC GT SCH ×3 (05:50→20:28)
[2019-01-21] MEDS: GABAPENTIN 300 MG CAPSULE GT SCH ×3 (05:50→20:28)
[2019-01-21] MEDS: DEXILANT 30 MG GT SCH (05:56)
[2019-01-21 07:38] VITALS: BP 148/64
[2019-01-21] MEDS ORDERED: DEXTROSE 50%-WATER 50 ML DISP.SYRIN IV PRN (08:30)
[2019-01-21] MEDS: CALCIUM CARBONATE 500 MG TAB.CHEW GT SCH ×2 (08:58→17:26)
[2019-01-21] MEDS: DOCUSATE SODIUM LIQ 100 MG/10 ML UDC GT SCH (08:58)
[2019-01-21] MEDS: MULTIVIT W/MINERALS 1 TAB TABLET GT SCH (08:58)
[2019-01-21] MEDS: VIT A TP SCH ×2 (08:58→20:29)
[2019-01-21] MEDS: PROSOURCE DIETARY LIQUID 30 ML LIQUID GT SCH ×2 (08:58→17:26)
[2019-01-21] MEDS: SIMETHICONE SUSP 40 MG/0.6 ML BOTTLE GT SCH ×2 (08:58→20:28)
[2019-01-21] MEDS: LEVETIRACETAM SOL (5 ML) 100 MG/ML UDC GT SCH ×2 (08:58→20:28)
[2019-01-21] MEDS: [UNRECOGNIZED DRUG - OTHER] TP SCH ×2 (08:58→20:29)
[2019-01-21] MEDS: ACIDOPHILUS/BULGARICUS 1 EACH TAB.CHEW GT SCH ×2 (08:58→17:26)
[2019-01-21] MEDS: TRILEPTAL GT SCH ×2 (08:58→20:28)
[2019-01-21] MEDS: FERROUS SULFATE - FOR SA ONLY 330 MG/7.5 ML UDC GT SCH ×2 (08:58→17:26)
[2019-01-21] MEDS: HYDROGEN PEROXIDE 480 ML BOTTLE TP SCH ×2 (09:00→19:45)
[2019-01-21] MEDS: Z GUARD REMEDY 4 OZ OINT TP SCH ×2 (09:00→20:29)
[2019-01-21] MEDS: INSULIN REGULAR, HUMAN 100 UNIT/ML 3 ML VIAL SQ PRN ×4 (09:04→21:55)
--- NOTE | 2019-01-21 16:13 | NUR ---
IDT meeting held today and pt's sister attended. Current plan of care discussed in detail. Dr Felix ordered to DC Benadryl since pt has not used it since June of this year. Pt's blood sugar levels have been high, HgbA1C 5.7, no additional medications have been prescribed by primary MD for DM. Dr Felix ordered to do CBC and UA.
--- NOTE | 2019-01-21 16:27 | NUR ---
Notified Dr Naik that pt has a small dry wound on the left 5th toe. He ordered to apply betadine paint q shift for 14 days, DC AFO boots, and he said he will see pt on Thursday01/24/19. Sister aware.
[2019-01-21 20:05] VITALS: BP 127/83
[2019-01-21] MEDS: POVIDONE-IODINE OINT 28.4 GM TUBE TP SCH (20:28)
[2019-01-21] MEDS: ASCORBIC ACID 500 MG TABLET GT SCH (20:28)
[2019-01-22] MEDS: BLOOD SUGAR DIAGNOSTIC 1 EACH STRIP IN SCH ×6 (00:46→21:00)
[2019-01-22] MEDS: INSULIN REGULAR, HUMAN 100 UNIT/ML 3 ML VIAL SQ PRN ×6 (00:48→22:07)
[2019-01-22] MEDS: ALBUTEROL FS 2.5 MG/3 ML VIAL.NEB NEB SCH ×4 (01:47→19:34)
[2019-01-22] MEDS: GABAPENTIN 300 MG CAPSULE GT SCH ×3 (05:15→20:43)
[2019-01-22] MEDS: DEXILANT 30 MG GT SCH (05:15)
[2019-01-22] MEDS: METOCLOPRAMIDE HCL 10 MG/10 ML UDC GT SCH ×3 (05:15→20:39)
[2019-01-22 07:36] VITALS: BP 125/69
[2019-01-22] MEDS: SIMETHICONE SUSP 40 MG/0.6 ML BOTTLE GT SCH ×2 (08:00→20:35)
[2019-01-22] MEDS: DOCUSATE SODIUM LIQ 100 MG/10 ML UDC GT SCH (09:00)
[2019-01-22] MEDS: Z GUARD REMEDY 4 OZ OINT TP SCH ×2 (09:00→20:40)
[2019-01-22] MEDS: HYDROGEN PEROXIDE 480 ML BOTTLE TP SCH ×2 (09:00→19:34)
[2019-01-22] MEDS: TRILEPTAL GT SCH ×2 (09:00→20:38)
[2019-01-22] MEDS: MULTIVIT W/MINERALS 1 TAB TABLET GT SCH (09:00)
[2019-01-22] MEDS: CALCIUM CARBONATE 500 MG TAB.CHEW GT SCH ×2 (09:00→17:00)
[2019-01-22] MEDS: ACIDOPHILUS/BULGARICUS 1 EACH TAB.CHEW GT SCH ×2 (09:00→17:00)
[2019-01-22] MEDS: FERROUS SULFATE - FOR SA ONLY 330 MG/7.5 ML UDC GT SCH ×2 (09:00→17:00)
[2019-01-22] MEDS: PROSOURCE DIETARY LIQUID 30 ML LIQUID GT SCH ×2 (09:00→17:00)
[2019-01-22] MEDS: VIT A TP SCH ×2 (09:00→20:40)
[2019-01-22] MEDS: [UNRECOGNIZED DRUG - OTHER] TP SCH ×2 (09:00→20:40)
[2019-01-22] MEDS: LEVETIRACETAM SOL (5 ML) 100 MG/ML UDC GT SCH ×2 (09:00→20:36)
[2019-01-22] MEDS: POVIDONE-IODINE OINT 28.4 GM TUBE TP SCH ×2 (09:00→20:40)
[2019-01-22] MEDS: GLUCERNA 1.2 1,000 ML BOTTLE GT PRN (13:04)
[2019-01-22 20:00] VITALS: BP 120/77
[2019-01-22] MEDS: ASCORBIC ACID 500 MG TABLET GT SCH (20:43)
[2019-01-22 20:47] VITALS: BP 120/77
[2019-01-23] MEDS: BLOOD SUGAR DIAGNOSTIC 1 EACH STRIP IN SCH ×6 (00:42→20:16)
[2019-01-23] MEDS: INSULIN REGULAR, HUMAN 100 UNIT/ML 3 ML VIAL SQ PRN ×6 (01:30→20:19)
[2019-01-23] MEDS: ALBUTEROL FS 2.5 MG/3 ML VIAL.NEB NEB SCH ×4 (01:41→19:39)
[2019-01-23] MEDS: METOCLOPRAMIDE HCL 10 MG/10 ML UDC GT SCH ×3 (04:22→20:08)
[2019-01-23] MEDS: GABAPENTIN 300 MG CAPSULE GT SCH ×3 (04:24→20:07)
[2019-01-23] MEDS: GLUCERNA 1.2 1,000 ML BOTTLE GT PRN ×2 (04:25→22:39)
[2019-01-23] MEDS: DEXILANT 30 MG GT SCH (05:39)
[2019-01-23 07:42] VITALS: BP 105/74
[2019-01-23] MEDS: SIMETHICONE SUSP 40 MG/0.6 ML BOTTLE GT SCH ×2 (08:00→20:07)
[2019-01-23] MEDS: HYDROGEN PEROXIDE 480 ML BOTTLE TP SCH ×2 (08:23→21:00)
[2019-01-23] MEDS: ACIDOPHILUS/BULGARICUS 1 EACH TAB.CHEW GT SCH ×2 (09:29→17:00)
[2019-01-23] MEDS: PROSOURCE DIETARY LIQUID 30 ML LIQUID GT SCH ×2 (09:29→17:00)
[2019-01-23] MEDS: TRILEPTAL GT SCH ×2 (09:29→20:07)
[2019-01-23] MEDS: MULTIVIT W/MINERALS 1 TAB TABLET GT SCH (09:29)
[2019-01-23] MEDS: CALCIUM CARBONATE 500 MG TAB.CHEW GT SCH ×2 (09:29→17:00)
[2019-01-23] MEDS: DOCUSATE SODIUM LIQ 100 MG/10 ML UDC GT SCH (09:29)
[2019-01-23] MEDS: LEVETIRACETAM SOL (5 ML) 100 MG/ML UDC GT SCH ×2 (09:29→20:07)
[2019-01-23] MEDS: FERROUS SULFATE - FOR SA ONLY 330 MG/7.5 ML UDC GT SCH ×2 (09:29→17:00)
[2019-01-23] MEDS: Z GUARD REMEDY 4 OZ OINT TP SCH ×2 (09:30→20:09)
[2019-01-23] MEDS: [UNRECOGNIZED DRUG - OTHER] TP SCH ×2 (09:30→20:09)
[2019-01-23] MEDS: VIT A TP SCH ×2 (09:30→20:09)
[2019-01-23] MEDS: POVIDONE-IODINE OINT 28.4 GM TUBE TP SCH ×2 (09:30→20:09)
[2019-01-23] MEDS: ASCORBIC ACID 500 MG TABLET GT SCH (20:08)
[2019-01-23 20:35] VITALS: BP 127/84
[2019-01-24] MEDS: BLOOD SUGAR DIAGNOSTIC 1 EACH STRIP IN SCH ×2 (01:10→05:45)
[2019-01-24] MEDS: INSULIN REGULAR, HUMAN 100 UNIT/ML 3 ML VIAL SQ PRN ×2 (01:11→05:46)
[2019-01-24] MEDS: ALBUTEROL FS 2.5 MG/3 ML VIAL.NEB NEB SCH ×4 (01:23→19:38)
[2019-01-24] MEDS: GABAPENTIN 300 MG CAPSULE GT SCH ×3 (05:43→20:31)
[2019-01-24] MEDS: METOCLOPRAMIDE HCL 10 MG/10 ML UDC GT SCH ×3 (05:45→20:28)
[2019-01-24] MEDS: DEXILANT 30 MG GT SCH (05:45)
[2019-01-24 06:41] LABS: BASOPHILS # (AUTO) 0.1 /CMM (0.0-0.2); BASOPHILS % (AUTO) 0.8 % (0.0-2.0); EOSINOPHILS % (AUTO) 10.7 % (0.0-6.0); HEMATOCRIT 26 % (33-45); HEMOGLOBIN 8.6 g/dL (11.5-14.8); LYMPHOCYTES # (AUTO) 3.3 /CMM (0.8-4.8); LYMPHOCYTES % (AUTO) 29.7 % (20.0-44.0); MEAN CORPUSCULAR HGB CONC 33 g/dl (31.0-36.0); MEAN CORPUSCULAR VOLUME 100 fL (82-100); MONOCYTES # (AUTO) 1.1 /CMM (0.1-1.30); MONOCYTES % (AUTO) 9.6 % (2.0-12.0); NEUTROPHILS # (AUTO) 5.6 /CMM (1.8-8.9); NEUTROPHILS % (AUTO) 49.2 % (43.0-81.0); PLATELET COUNT (AUTO) 279 /CMM (150-450); RED BLOOD CELL COUNT(AUTO) 2.58 MIL/uL (4.0-5.2); WHITE BLOOD COUNT (AUTO) 11.3 K/uL (4.3-11.0)
[2019-01-24 07:41] VITALS: BP 121/67
[2019-01-24] MEDS: HYDROGEN PEROXIDE 480 ML BOTTLE TP SCH ×2 (09:00→19:39)
[2019-01-24] MEDS: FERROUS SULFATE - FOR SA ONLY 330 MG/7.5 ML UDC GT SCH ×2 (09:13→16:36)
[2019-01-24] MEDS: DOCUSATE SODIUM LIQ 100 MG/10 ML UDC GT SCH (09:13)
[2019-01-24] MEDS: SIMETHICONE SUSP 40 MG/0.6 ML BOTTLE GT SCH ×2 (09:13→20:25)
[2019-01-24] MEDS: TRILEPTAL GT SCH ×2 (09:14→20:28)
[2019-01-24] MEDS: ACIDOPHILUS/BULGARICUS 1 EACH TAB.CHEW GT SCH ×2 (09:14→16:36)
[2019-01-24] MEDS: LEVETIRACETAM SOL (5 ML) 100 MG/ML UDC GT SCH ×2 (09:14→20:26)
[2019-01-24] MEDS: PROSOURCE DIETARY LIQUID 30 ML LIQUID GT SCH ×2 (09:15→16:36)
[2019-01-24] MEDS: MULTIVIT W/MINERALS 1 TAB TABLET GT SCH (09:15)
[2019-01-24] MEDS: CALCIUM CARBONATE 500 MG TAB.CHEW GT SCH ×2 (09:15→16:36)
[2019-01-24] MEDS: Z GUARD REMEDY 4 OZ OINT TP SCH ×2 (11:36→20:30)
[2019-01-24] MEDS: VIT A TP SCH ×2 (11:36→20:29)
[2019-01-24] MEDS: [UNRECOGNIZED DRUG - OTHER] TP SCH ×2 (11:36→20:29)
[2019-01-24] MEDS: POVIDONE-IODINE OINT 28.4 GM TUBE TP SCH ×2 (11:36→20:29)
[2019-01-24 14:23] LABS: APPEARANCE,URINE TURBID (CLEAR); BILIRUBIN,URINE NEGATIVE (NEGATIVE); BLOOD, URINE 2+ Ery/uL (NEGATIVE); COLOR,URINE YELLOW (YELLOW); KETONES,URINE NEGATIVE (NEGATIVE); LEUKOCYTE ESTERASE ,URINE 3+ (NEGATIVE); NITRITE, URINE NEGATIVE (NEGATIVE); PROTEIN,URINE 2+ mg/dl (NEGATIVE); UGLUCOSE 1+ mg/dL (NEGATIVE); UROBILINOGEN,URINE 0.2 EU/dL (0.2)
[2019-01-24 14:35] LABS: SQUAMOUS EPITHELIAL CELL,UR Many /HPF (None Seen); WBC,URINE TOO NUMEROUS TO COUN /HPF (0-3)
[2019-01-24 14:39] LABS: BACTERIA,URINE Many /HPF (None Seen)
--- NOTE | 2019-01-24 15:28 | NUR ---
Seen by Dr Luis. Relayed blood sugar levels to him. He ordered to give Glyburide 5 mg via GT q 12 hours. Notified Beckie.
[2019-01-24] MEDS: GLUCERNA 1.2 1,000 ML BOTTLE GT PRN (17:16)
[2019-01-24 20:13] VITALS: BP 141/76
[2019-01-24] MEDS: glyBURIDE 5 MG TABLET GT SCH (20:27)
[2019-01-24] MEDS: ASCORBIC ACID 500 MG TABLET GT SCH (20:29)
[2019-01-25] MEDS: ALBUTEROL FS 2.5 MG/3 ML VIAL.NEB NEB SCH ×4 (01:43→19:24)
[2019-01-25] MEDS: METOCLOPRAMIDE HCL 10 MG/10 ML UDC GT SCH ×3 (05:32→20:22)
[2019-01-25] MEDS: DEXILANT 30 MG GT SCH (05:33)
[2019-01-25] MEDS: GABAPENTIN 300 MG CAPSULE GT SCH ×3 (05:34→20:20)
[2019-01-25] MEDS: SIMETHICONE SUSP 40 MG/0.6 ML BOTTLE GT SCH ×2 (08:00→20:19)
[2019-01-25 08:21] VITALS: BP 130/92
[2019-01-25] MEDS: INSULIN REGULAR, HUMAN 100 UNIT/ML 3 ML VIAL SQ PRN ×3 (09:00→18:41)
[2019-01-25] MEDS ORDERED: DEXTROSE 50%-WATER 50 ML DISP.SYRIN IV PRN ×2 (09:00→12:00)
[2019-01-25] MEDS: HYDROGEN PEROXIDE 480 ML BOTTLE TP SCH ×2 (09:00→19:24)
[2019-01-25] MEDS: DOCUSATE SODIUM LIQ 100 MG/10 ML UDC GT SCH (09:05)
[2019-01-25] MEDS: glyBURIDE 5 MG TABLET GT SCH (09:05)
[2019-01-25] MEDS: TRILEPTAL GT SCH ×2 (09:06→20:21)
[2019-01-25] MEDS: MULTIVIT W/MINERALS 1 TAB TABLET GT SCH (09:06)
[2019-01-25] MEDS: PROSOURCE DIETARY LIQUID 30 ML LIQUID GT SCH ×2 (09:06→17:00)
[2019-01-25] MEDS: ACIDOPHILUS/BULGARICUS 1 EACH TAB.CHEW GT SCH ×2 (09:06→17:00)
[2019-01-25] MEDS: FERROUS SULFATE - FOR SA ONLY 330 MG/7.5 ML UDC GT SCH ×2 (09:06→17:00)
[2019-01-25] MEDS: CALCIUM CARBONATE 500 MG TAB.CHEW GT SCH ×2 (09:06→17:00)
[2019-01-25] MEDS: LEVETIRACETAM SOL (5 ML) 100 MG/ML UDC GT SCH ×2 (09:06→20:19)
[2019-01-25] MEDS: VIT A TP SCH ×2 (09:07→20:22)
[2019-01-25] MEDS: POVIDONE-IODINE OINT 28.4 GM TUBE TP SCH (09:07)
[2019-01-25] MEDS: [UNRECOGNIZED DRUG - OTHER] TP SCH ×2 (09:07→20:22)
[2019-01-25] MEDS: Z GUARD REMEDY 4 OZ OINT TP SCH ×2 (09:08→20:22)
--- NOTE | 2019-01-25 10:10 | NUR ---
Seen by Dr Felix. Blood sugar was checked and it was 439. Dr Felix said to ask Dr Luis if Glyburide can be DC'd and if she can be switched from Humulin R to Humalog. He also said to ask if pt can be started on Lantus 10 units SC q HS tomorrow. Informed Dr Luis of Dr Felix's recommendations and pt's blood sugar of 439. Dr Luis ordered to DC Glyburide, start pt on Lantus 14 units SC q HS, and change from Humulin to Humalog with moderate insulin sliding scale coverage. Informed Dr Felix. He emphasized to start Lantus tomorrow.
[2019-01-25] MEDS ORDERED: *INSULIN ASPART NOVOLOG 100 UNIT/ML CARTRIDGE SQ PRN (12:00)
[2019-01-25] MEDS ORDERED: INSULIN ASPART/LISPRO 100 UNIT/ML CARTRIDGE SQ PRN (12:00)
[2019-01-25] MEDS ORDERED: BLOOD SUGAR DIAGNOSTIC 1 EACH STRIP IN SCH ×2 (12:00)
--- NOTE | 2019-01-25 12:45 | NUR ---
Dr Felix ordered to give pt Humulin R instead of Humalog for now per pharmacy recommendation.
--- NOTE | 2019-01-25 13:12 | NUR ---
Notified Beckie of pt's blood sugars and new orders.
[2019-01-25] MEDS: GLUCERNA 1.2 1,000 ML BOTTLE GT PRN (14:30)
[2019-01-25] MEDS: BLOOD SUGAR DIAGNOSTIC 1 EACH STRIP IN SCH (18:36)
[2019-01-25 20:16] VITALS: BP 133/87
[2019-01-25] MEDS: ASCORBIC ACID 500 MG TABLET GT SCH (20:22)
[2019-01-25] MEDS: INSULIN GLARGINE, 100 UNIT/ML CARTRIDGE SQ SCH (22:10)
[2019-01-26] MEDS: INSULIN GLARGINE, 100 UNIT/ML CARTRIDGE SQ SCH (00:16)
--- NOTE | 2019-01-26 00:18 | NUR ---
PTS LANTUS ORDER SHOULD BE START 01/26/19.
[2019-01-26] MEDS: BLOOD SUGAR DIAGNOSTIC 1 EACH STRIP IN SCH ×4 (00:19→17:34)
[2019-01-26] MEDS: INSULIN REGULAR, HUMAN 100 UNIT/ML 3 ML VIAL SQ PRN ×4 (00:20→17:36)
[2019-01-26] MEDS: ALBUTEROL FS 2.5 MG/3 ML VIAL.NEB NEB SCH ×4 (01:30→19:38)
[2019-01-26] MEDS: GABAPENTIN 300 MG CAPSULE GT SCH ×3 (05:19→20:56)
[2019-01-26] MEDS: METOCLOPRAMIDE HCL 10 MG/10 ML UDC GT SCH ×3 (05:20→20:56)
[2019-01-26] MEDS: DEXILANT 30 MG GT SCH (05:20)
[2019-01-26 07:36] VITALS: BP 122/55
[2019-01-26] MEDS: FERROUS SULFATE - FOR SA ONLY 330 MG/7.5 ML UDC GT SCH ×2 (08:52→17:34)
[2019-01-26] MEDS: MULTIVIT W/MINERALS 1 TAB TABLET GT SCH (08:52)
[2019-01-26] MEDS: PROSOURCE DIETARY LIQUID 30 ML LIQUID GT SCH ×2 (08:52→17:34)
[2019-01-26] MEDS: ACIDOPHILUS/BULGARICUS 1 EACH TAB.CHEW GT SCH ×2 (08:52→17:34)
[2019-01-26] MEDS: LEVETIRACETAM SOL (5 ML) 100 MG/ML UDC GT SCH ×2 (08:52→20:56)
[2019-01-26] MEDS: SIMETHICONE SUSP 40 MG/0.6 ML BOTTLE GT SCH ×2 (08:52→20:56)
[2019-01-26] MEDS: DOCUSATE SODIUM LIQ 100 MG/10 ML UDC GT SCH (08:52)
[2019-01-26] MEDS: CALCIUM CARBONATE 500 MG TAB.CHEW GT SCH ×2 (08:52→17:34)
[2019-01-26] MEDS: TRILEPTAL GT SCH ×2 (08:53→20:56)
[2019-01-26] MEDS: Z GUARD REMEDY 4 OZ OINT TP SCH ×2 (09:00→20:56)
[2019-01-26] MEDS: [UNRECOGNIZED DRUG - OTHER] TP SCH ×2 (09:00→20:56)
[2019-01-26] MEDS: HYDROGEN PEROXIDE 480 ML BOTTLE TP SCH ×2 (09:00→19:38)
[2019-01-26] MEDS: BETADINE 5% TP SCH ×2 (09:00→20:56)
[2019-01-26] MEDS: VIT A TP SCH ×2 (09:00→20:56)
[2019-01-26] MEDS ORDERED: POVIDONE-IODINE OINT 28.4 GM TUBE TP ONE (09:01)
[2019-01-26] MEDS: GLUCERNA 1.2 1,000 ML BOTTLE GT PRN (12:32)
[2019-01-26 20:04] VITALS: BP 136/80
[2019-01-26] MEDS: ASCORBIC ACID 500 MG TABLET GT SCH (20:56)
[2019-01-26] MEDS ORDERED: INSULIN GLARGINE, 100 UNIT/ML CARTRIDGE SQ SCH (22:00)
[2019-01-27] MEDS: BLOOD SUGAR DIAGNOSTIC 1 EACH STRIP IN SCH ×4 (00:57→18:48)
[2019-01-27] MEDS: INSULIN REGULAR, HUMAN 100 UNIT/ML 3 ML VIAL SQ PRN ×4 (00:58→18:49)
[2019-01-27] MEDS: ALBUTEROL FS 2.5 MG/3 ML VIAL.NEB NEB SCH ×4 (01:37→19:30)
[2019-01-27] MEDS: GABAPENTIN 300 MG CAPSULE GT SCH ×3 (05:46→20:39)
[2019-01-27] MEDS: METOCLOPRAMIDE HCL 10 MG/10 ML UDC GT SCH ×3 (05:46→20:39)
[2019-01-27] MEDS: DEXILANT 30 MG GT SCH (05:46)
[2019-01-27] MEDS: GLUCERNA 1.2 1,000 ML BOTTLE GT PRN (05:46)
[2019-01-27] MEDS: BISACODYL SUPP (10 MG) 10 MG/SUPP.RECT SUPP.RECT RC PRN (06:25)
[2019-01-27 07:48] VITALS: BP 113/75
[2019-01-27] MEDS: SIMETHICONE SUSP 40 MG/0.6 ML BOTTLE GT SCH ×2 (08:26→20:39)
[2019-01-27] MEDS: ACIDOPHILUS/BULGARICUS 1 EACH TAB.CHEW GT SCH ×2 (08:27→17:07)
[2019-01-27] MEDS: LEVETIRACETAM SOL (5 ML) 100 MG/ML UDC GT SCH ×2 (08:27→20:39)
[2019-01-27] MEDS: DOCUSATE SODIUM LIQ 100 MG/10 ML UDC GT SCH (08:27)
[2019-01-27] MEDS: FERROUS SULFATE - FOR SA ONLY 330 MG/7.5 ML UDC GT SCH ×2 (08:27→17:07)
[2019-01-27] MEDS: PROSOURCE DIETARY LIQUID 30 ML LIQUID GT SCH ×2 (08:29→17:07)
[2019-01-27] MEDS: TRILEPTAL GT SCH ×2 (08:29→20:39)
[2019-01-27] MEDS: CALCIUM CARBONATE 500 MG TAB.CHEW GT SCH ×2 (08:29→17:07)
[2019-01-27] MEDS: MULTIVIT W/MINERALS 1 TAB TABLET GT SCH (08:29)
[2019-01-27] MEDS: VIT A TP SCH ×2 (09:00→20:40)
[2019-01-27] MEDS: BETADINE 5% TP SCH ×2 (09:00→20:39)
[2019-01-27] MEDS: [UNRECOGNIZED DRUG - OTHER] TP SCH ×2 (09:00→20:40)
[2019-01-27] MEDS: ZINC OXIDE 30 GM TUBE TP SCH ×2 (09:00→20:40)
[2019-01-27] MEDS: Z GUARD REMEDY 4 OZ OINT TP SCH ×2 (09:00→20:40)
[2019-01-27] MEDS: HYDROGEN PEROXIDE 480 ML BOTTLE TP SCH ×2 (09:00→20:33)
[2019-01-27] MEDS: CLOTRIMAZOLE 1% 15 GM TUBE TP SCH ×2 (09:00→20:40)
--- NOTE | 2019-01-27 17:00 | NUR ---
Seen by Dr Luis. Informed him of pt's recent blood sugar levels. He ordered to increase Lantus insulin from 14 to 16 units SC q HS. Notified Beckie.
[2019-01-27 20:27] VITALS: BP 130/75
--- NOTE | 2019-01-27 20:30 | NUR ---
Notified Gertrude for final urine culture with new order to start Amikacin IV pharmacy to dose x 7 days,CBC,BMP and CXR in AM,change maher catheter and placed on contact isolation for ESBL urine.Will carried out orders.
[2019-01-27] MEDS: ASCORBIC ACID 500 MG TABLET GT SCH (20:39)
--- NOTE | 2019-01-27 20:45 | NUR ---
Spoke to pharmacy for dosing and they said will give me a call for dose.Sister Beckie notified with new orders,appreciative of the call.
[2019-01-27] MEDS ORDERED: DOSING PER PHARMACY-AMIKACI IV IV PRN (21:00)
[2019-01-27] MEDS: INSULIN GLARGINE, 100 UNIT/ML CARTRIDGE SQ SCH (22:16)
[2019-01-27] MEDS ORDERED: AMIKACIN 500 MG in IV D5W 100 ML IV SCH (23:00)
[2019-01-27] MEDS ORDERED: AMIKACIN 500 MG in IV D5W 100 ML IV ONE (23:28)
[2019-01-28] MEDS: BLOOD SUGAR DIAGNOSTIC 1 EACH STRIP IN SCH ×4 (00:20→17:26)
[2019-01-28] MEDS: INSULIN REGULAR, HUMAN 100 UNIT/ML 3 ML VIAL SQ PRN ×4 (00:22→17:27)
[2019-01-28] MEDS: ALBUTEROL FS 2.5 MG/3 ML VIAL.NEB NEB SCH ×4 (00:39→20:05)
[2019-01-28] MEDS: DEXILANT 30 MG GT SCH (05:15)
[2019-01-28] MEDS: METOCLOPRAMIDE HCL 10 MG/10 ML UDC GT SCH ×3 (05:15→20:25)
[2019-01-28] MEDS: GLUCERNA 1.2 1,000 ML BOTTLE GT PRN ×2 (05:15→23:01)
[2019-01-28] MEDS: GABAPENTIN 300 MG CAPSULE GT SCH ×3 (05:15→20:25)
[2019-01-28 07:11] LABS: BASOPHILS # (AUTO) 0.1 /CMM (0.0-0.2); BASOPHILS % (AUTO) 0.6 % (0.0-2.0); HEMATOCRIT 26 % (33-45); HEMOGLOBIN 8.8 g/dL (11.5-14.8); LYMPHOCYTES # (AUTO) 3.5 /CMM (0.8-4.8); LYMPHOCYTES % (AUTO) 22.6 % (20.0-44.0); MEAN CORPUSCULAR HGB CONC 33 g/dl (31.0-36.0); MEAN CORPUSCULAR VOLUME 99 fL (82-100); MONOCYTES # (AUTO) 1.4 /CMM (0.1-1.30); MONOCYTES % (AUTO) 9.1 % (2.0-12.0); NEUTROPHILS # (AUTO) 9.5 /CMM (1.8-8.9); NEUTROPHILS % (AUTO) 60.7 % (43.0-81.0); PLATELET COUNT (AUTO) 292 /CMM (150-450); RED BLOOD CELL COUNT(AUTO) 2.67 MIL/uL (4.0-5.2); WHITE BLOOD COUNT (AUTO) 15.6 K/uL (4.3-11.0)
[2019-01-28 07:19] LABS: CALCIUM, SERUM 10.3 mg/dL (8.5-10.1); CREATININE 3.4 mg/dL (0.6-1.3); POTASSIUM 3.2 mmol/L (3.5-5.1)
[2019-01-28 07:52] VITALS: BP 130/70
[2019-01-28] MEDS: SIMETHICONE SUSP 40 MG/0.6 ML BOTTLE GT SCH ×2 (08:54→20:25)
[2019-01-28] MEDS: HYDROGEN PEROXIDE 480 ML BOTTLE TP SCH ×2 (09:00→21:00)
--- NOTE | 2019-01-28 09:00 | NUR ---
Notified Dr. Luis of CBC and BMP result showing K+ level of 3.2, Creat 3.4, BUN 70, Na 146. New order given to start patient on 1/2 NS at 80cc/hr and to give 40 meq of KCL x 1 via GT. Order carried out. Left a message to Beckie, patient's sister regarding new order.
[2019-01-28] MEDS: Z GUARD REMEDY 4 OZ OINT TP SCH ×2 (09:02→20:26)
[2019-01-28] MEDS: ACIDOPHILUS/BULGARICUS 1 EACH TAB.CHEW GT SCH ×2 (09:02→17:26)
[2019-01-28] MEDS: CLOTRIMAZOLE 1% 15 GM TUBE TP SCH ×2 (09:02→20:26)
[2019-01-28] MEDS: DOCUSATE SODIUM LIQ 100 MG/10 ML UDC GT SCH (09:02)
[2019-01-28] MEDS: ZINC OXIDE 30 GM TUBE TP SCH ×2 (09:02→20:26)
[2019-01-28] MEDS: MULTIVIT W/MINERALS 1 TAB TABLET GT SCH (09:02)
[2019-01-28] MEDS: TRILEPTAL GT SCH ×2 (09:02→20:25)
[2019-01-28] MEDS: VIT A TP SCH ×2 (09:02→20:26)
[2019-01-28] MEDS: LEVETIRACETAM SOL (5 ML) 100 MG/ML UDC GT SCH ×2 (09:02→20:25)
[2019-01-28] MEDS: PROSOURCE DIETARY LIQUID 30 ML LIQUID GT SCH ×2 (09:02→17:26)
[2019-01-28] MEDS: CALCIUM CARBONATE 500 MG TAB.CHEW GT SCH ×2 (09:02→17:26)
[2019-01-28] MEDS: [UNRECOGNIZED DRUG - OTHER] TP SCH ×2 (09:02→20:26)
[2019-01-28] MEDS: FERROUS SULFATE - FOR SA ONLY 330 MG/7.5 ML UDC GT SCH ×2 (09:02→17:26)
[2019-01-28] MEDS: BETADINE 5% TP SCH ×2 (09:03→20:25)
[2019-01-28] MEDS ORDERED: POTASSIUM CHLORIDE 20 MEQ POWDER PACKET GT ONE (10:00)
[2019-01-28] MEDS: IV 1/2NS 1000 ML 1,000 ML IV PRN ×2 (10:21→21:22)
--- NOTE | 2019-01-28 10:30 | NUR ---
Spoke with [facility] pharmacist Brandan informing this nurse that [facility] pharmacist had called him regarding patient's elevated Creat level 3.4 which was drawn today. According to Brandan he will adjust Amikacin dosing and will fax new recommendation/order.
[2019-01-28 20:21] VITALS: BP 123/66
[2019-01-28] MEDS: ASCORBIC ACID 500 MG TABLET GT SCH (20:25)
[2019-01-28] MEDS: ACETAMINOPHEN 650 MG/20 ML UDC- SA PATIENTS-FEVER ONLY GT PRN (21:00)
[2019-01-28] MEDS: INSULIN GLARGINE, 100 UNIT/ML CARTRIDGE SQ SCH (22:46)
--- NOTE | 2019-01-29 00:15 | NUR ---
Seen and examined by NAN FRY at this time.
[2019-01-29] MEDS: BLOOD SUGAR DIAGNOSTIC 1 EACH STRIP IN SCH ×5 (00:20→23:32)
[2019-01-29] MEDS: INSULIN REGULAR, HUMAN 100 UNIT/ML 3 ML VIAL SQ PRN ×5 (00:21→23:37)
[2019-01-29] MEDS: ALBUTEROL FS 2.5 MG/3 ML VIAL.NEB NEB SCH ×3 (01:06→19:58)
[2019-01-29] MEDS: DEXILANT 30 MG GT SCH (05:46)
[2019-01-29] MEDS: METOCLOPRAMIDE HCL 10 MG/10 ML UDC GT SCH ×3 (05:46→20:26)
[2019-01-29] MEDS: GABAPENTIN 300 MG CAPSULE GT SCH ×3 (05:46→20:25)
[2019-01-29 07:48] VITALS: BP 127/77
[2019-01-29] MEDS: SIMETHICONE SUSP 40 MG/0.6 ML BOTTLE GT SCH ×2 (08:33→20:24)
[2019-01-29] MEDS: FERROUS SULFATE - FOR SA ONLY 330 MG/7.5 ML UDC GT SCH ×2 (08:34→17:00)
[2019-01-29] MEDS: LEVETIRACETAM SOL (5 ML) 100 MG/ML UDC GT SCH ×2 (08:34→20:25)
[2019-01-29] MEDS: DOCUSATE SODIUM LIQ 100 MG/10 ML UDC GT SCH (08:34)
[2019-01-29] MEDS: BETADINE 5% TP SCH ×2 (08:37→20:26)
[2019-01-29] MEDS: PROSOURCE DIETARY LIQUID 30 ML LIQUID GT SCH ×2 (08:37→17:00)
[2019-01-29] MEDS: CALCIUM CARBONATE 500 MG TAB.CHEW GT SCH ×2 (08:37→17:00)
[2019-01-29] MEDS: [UNRECOGNIZED DRUG - OTHER] TP SCH ×2 (08:37→20:26)
[2019-01-29] MEDS: Z GUARD REMEDY 4 OZ OINT TP SCH ×2 (08:37→20:26)
[2019-01-29] MEDS: CLOTRIMAZOLE 1% 15 GM TUBE TP SCH ×2 (08:37→20:26)
[2019-01-29] MEDS: TRILEPTAL GT SCH ×2 (08:37→20:25)
[2019-01-29] MEDS: MULTIVIT W/MINERALS 1 TAB TABLET GT SCH (08:37)
[2019-01-29] MEDS: ACIDOPHILUS/BULGARICUS 1 EACH TAB.CHEW GT SCH ×2 (08:37→17:00)
[2019-01-29] MEDS: ZINC OXIDE 30 GM TUBE TP SCH ×2 (08:37→20:26)
[2019-01-29] MEDS: VIT A TP SCH ×2 (08:37→20:26)
[2019-01-29] MEDS: HYDROGEN PEROXIDE 480 ML BOTTLE TP SCH ×2 (09:00→20:26)
[2019-01-29] MEDS: IV 1/2NS 1000 ML 1,000 ML IV PRN (11:14)
[2019-01-29] MEDS ORDERED: DIATR MEGLU/DIATRIZOATE SODIUM 30 ML BOTTLE (GASTROGRAPHIN) ONE (17:06)
[2019-01-29] MEDS: ASCORBIC ACID 500 MG TABLET GT SCH (20:26)
[2019-01-29 20:32] VITALS: BP 120/68
[2019-01-29] MEDS: INSULIN GLARGINE, 100 UNIT/ML CARTRIDGE SQ SCH (22:37)
[2019-01-29] MEDS: GLUCERNA 1.2 1,000 ML BOTTLE GT PRN (23:11)
[2019-01-29] MEDS: AMIKACIN 350 MG in IV D5W 100 ML IV SCH ×3 (23:28)
[2019-01-30 00:40] LABS: CALCIUM, SERUM 9.8 mg/dL (8.5-10.1); CREATININE 3.1 mg/dL (0.6-1.3); POTASSIUM 4.3 mmol/L (3.5-5.1)
--- NOTE | 2019-01-30 00:50 | NUR ---
Charge nurse follow up with the Lab regarding the Amikacin Trough result. they said the specimen needs to be sent out to get the result. Charge nurse asked how long will that take and the person stated that a little over 4hrs because the fruit harvester machine operator has not picked it up yet since they draw the blood which was 2355.
[2019-01-30] MEDS: ALBUTEROL FS 2.5 MG/3 ML VIAL.NEB NEB SCH ×4 (01:26→19:13)
[2019-01-30] MEDS: IV 1/2NS 1000 ML 1,000 ML IV PRN ×2 (04:43→18:06)
[2019-01-30] MEDS: GABAPENTIN 300 MG CAPSULE GT SCH ×3 (05:14→20:12)
[2019-01-30] MEDS: METOCLOPRAMIDE HCL 10 MG/10 ML UDC GT SCH ×3 (05:14→20:13)
--- NOTE | 2019-01-30 05:30 | NUR ---
Charge nurse called the lab to follow up on the Amikacin through result. there's still no result and they still waiting.
[2019-01-30] MEDS: BLOOD SUGAR DIAGNOSTIC 1 EACH STRIP IN SCH ×3 (05:42→17:19)
[2019-01-30] MEDS: DEXILANT 30 MG GT SCH (05:42)
[2019-01-30] MEDS: INSULIN REGULAR, HUMAN 100 UNIT/ML 3 ML VIAL SQ PRN ×3 (05:48→17:20)
[2019-01-30 07:32] VITALS: BP 129/69
[2019-01-30] MEDS: SIMETHICONE SUSP 40 MG/0.6 ML BOTTLE GT SCH ×2 (08:00→20:10)
[2019-01-30] MEDS: HYDROGEN PEROXIDE 480 ML BOTTLE TP SCH ×2 (09:00→20:14)
--- NOTE | 2019-01-30 09:30 | NUR ---
Received Amikacin trough result, faxed to [facility] IV department.
[2019-01-30] MEDS: LEVETIRACETAM SOL (5 ML) 100 MG/ML UDC GT SCH ×2 (09:31→20:12)
[2019-01-30] MEDS: FERROUS SULFATE - FOR SA ONLY 330 MG/7.5 ML UDC GT SCH ×2 (09:31→17:19)
[2019-01-30] MEDS: ACIDOPHILUS/BULGARICUS 1 EACH TAB.CHEW GT SCH ×2 (09:31→17:19)
[2019-01-30] MEDS: DOCUSATE SODIUM LIQ 100 MG/10 ML UDC GT SCH (09:31)
[2019-01-30] MEDS: Z GUARD REMEDY 4 OZ OINT TP SCH ×2 (09:33→20:15)
[2019-01-30] MEDS: TRILEPTAL GT SCH ×2 (09:33→20:12)
[2019-01-30] MEDS: ZINC OXIDE 30 GM TUBE TP SCH ×2 (09:33→20:15)
[2019-01-30] MEDS: MULTIVIT W/MINERALS 1 TAB TABLET GT SCH (09:33)
[2019-01-30] MEDS: PROSOURCE DIETARY LIQUID 30 ML LIQUID GT SCH ×2 (09:33→17:19)
[2019-01-30] MEDS: CALCIUM CARBONATE 500 MG TAB.CHEW GT SCH ×2 (09:33→17:19)
[2019-01-30] MEDS: BETADINE 5% TP SCH ×2 (09:33→20:14)
[2019-01-30] MEDS: [UNRECOGNIZED DRUG - OTHER] TP SCH ×2 (09:33→20:14)
[2019-01-30] MEDS: CLOTRIMAZOLE 1% 15 GM TUBE TP SCH ×2 (09:33→20:14)
[2019-01-30] MEDS: VIT A TP SCH ×2 (09:33→20:14)
--- NOTE | 2019-01-30 15:55 | NUR ---
Received recommendation from Melissa ([facility] Pharmacist) to hold Amikacin 350 mg IVPB until further order. Random Amikacin level, BUN, Crea in AM 01/31/19 at 0600- requested.
[2019-01-30] MEDS: ASCORBIC ACID 500 MG TABLET GT SCH (20:14)
[2019-01-30 20:28] VITALS: BP 123/76
[2019-01-30] MEDS: INSULIN GLARGINE, 100 UNIT/ML CARTRIDGE SQ SCH (21:50)
[2019-01-31] MEDS: BLOOD SUGAR DIAGNOSTIC 1 EACH STRIP IN SCH ×4 (00:09→17:14)
[2019-01-31] MEDS: INSULIN REGULAR, HUMAN 100 UNIT/ML 3 ML VIAL SQ PRN ×4 (00:11→17:15)
[2019-01-31] MEDS: ALBUTEROL FS 2.5 MG/3 ML VIAL.NEB NEB SCH ×4 (01:30→19:32)
[2019-01-31] MEDS: GABAPENTIN 300 MG CAPSULE GT SCH ×3 (05:09→20:01)
[2019-01-31] MEDS: METOCLOPRAMIDE HCL 10 MG/10 ML UDC GT SCH ×3 (05:10→20:01)
[2019-01-31] MEDS: DEXILANT 30 MG GT SCH (05:11)
[2019-01-31 07:20] LABS: CREATININE 2.9 mg/dL (0.6-1.3)
[2019-01-31] MEDS: IV 1/2NS 1000 ML 1,000 ML IV PRN ×2 (07:25→18:55)
[2019-01-31 08:02] VITALS: BP 119/78
[2019-01-31] MEDS: DOCUSATE SODIUM LIQ 100 MG/10 ML UDC GT SCH (08:28)
[2019-01-31] MEDS: FERROUS SULFATE - FOR SA ONLY 330 MG/7.5 ML UDC GT SCH ×2 (08:28→16:40)
[2019-01-31] MEDS: LEVETIRACETAM SOL (5 ML) 100 MG/ML UDC GT SCH ×2 (08:28→20:00)
[2019-01-31] MEDS: SIMETHICONE SUSP 40 MG/0.6 ML BOTTLE GT SCH ×2 (08:28→20:00)
[2019-01-31] MEDS: ACIDOPHILUS/BULGARICUS 1 EACH TAB.CHEW GT SCH ×2 (08:28→16:40)
[2019-01-31] MEDS: PROSOURCE DIETARY LIQUID 30 ML LIQUID GT SCH ×2 (08:29→16:40)
[2019-01-31] MEDS: MULTIVIT W/MINERALS 1 TAB TABLET GT SCH (08:29)
[2019-01-31] MEDS: VIT A TP SCH ×2 (08:29→20:01)
[2019-01-31] MEDS: BETADINE 5% TP SCH ×2 (08:29→20:01)
[2019-01-31] MEDS: Z GUARD REMEDY 4 OZ OINT TP SCH ×2 (08:29→20:01)
[2019-01-31] MEDS: TRILEPTAL GT SCH ×2 (08:29→20:01)
[2019-01-31] MEDS: ZINC OXIDE 30 GM TUBE TP SCH ×2 (08:29→20:01)
[2019-01-31] MEDS: [UNRECOGNIZED DRUG - OTHER] TP SCH ×2 (08:29→20:01)
[2019-01-31] MEDS: CALCIUM CARBONATE 500 MG TAB.CHEW GT SCH ×2 (08:29→16:40)
[2019-01-31] MEDS: CLOTRIMAZOLE 1% 15 GM TUBE TP SCH ×2 (08:29→20:01)
[2019-01-31] MEDS: HYDROGEN PEROXIDE 480 ML BOTTLE TP SCH ×2 (09:00→21:00)
[2019-01-31] MEDS: GLUCERNA 1.2 1,000 ML BOTTLE GT PRN (13:00)
--- NOTE | 2019-01-31 14:00 | NUR ---
Faxed Amikacin level, BUN, Cr results to [facility] IV Department and spoke with Sidney. Amikacin level 5.2 BUN 54 Cr 2.9. She said they will call for Amikacin dose.
--- NOTE | 2019-01-31 18:00 | NUR ---
Called [facility] IV Department to follow up on Amikacin dose. Spoke with James. He said the pharmacist will call.
[2019-01-31] MEDS: ASCORBIC ACID 500 MG TABLET GT SCH (20:01)
[2019-01-31 20:52] VITALS: BP 137/78
[2019-01-31] MEDS: INSULIN GLARGINE, 100 UNIT/ML CARTRIDGE SQ SCH (21:19)
[2019-02-01] MEDS: BLOOD SUGAR DIAGNOSTIC 1 EACH STRIP IN SCH ×5 (00:08→23:59)
[2019-02-01] MEDS: INSULIN REGULAR, HUMAN 100 UNIT/ML 3 ML VIAL SQ PRN ×4 (00:09→18:34)
[2019-02-01] MEDS: ALBUTEROL FS 2.5 MG/3 ML VIAL.NEB NEB SCH ×4 (01:09→19:38)
[2019-02-01] MEDS: METOCLOPRAMIDE HCL 10 MG/10 ML UDC GT SCH ×3 (05:43→20:02)
[2019-02-01] MEDS: GABAPENTIN 300 MG CAPSULE GT SCH ×3 (05:43→20:01)
[2019-02-01] MEDS: DEXILANT 30 MG GT SCH (05:44)
[2019-02-01 07:47] VITALS: BP 95/60
[2019-02-01] MEDS: SIMETHICONE SUSP 40 MG/0.6 ML BOTTLE GT SCH ×2 (08:00→20:00)
[2019-02-01] MEDS: HYDROGEN PEROXIDE 480 ML BOTTLE TP SCH ×2 (09:00→21:20)
--- NOTE | 2019-02-01 09:04 | NUR ---
Received order to give Amikacin dose on 02/02/19 then DC.
[2019-02-01] MEDS: [UNRECOGNIZED DRUG - OTHER] TP SCH ×2 (09:17→20:02)
[2019-02-01] MEDS: LEVETIRACETAM SOL (5 ML) 100 MG/ML UDC GT SCH ×2 (09:17→20:01)
[2019-02-01] MEDS: TRILEPTAL GT SCH ×2 (09:17→20:01)
[2019-02-01] MEDS: CLOTRIMAZOLE 1% 15 GM TUBE TP SCH ×2 (09:17→20:02)
[2019-02-01] MEDS: PROSOURCE DIETARY LIQUID 30 ML LIQUID GT SCH ×2 (09:17→17:19)
[2019-02-01] MEDS: ACIDOPHILUS/BULGARICUS 1 EACH TAB.CHEW GT SCH ×2 (09:17→17:19)
[2019-02-01] MEDS: Z GUARD REMEDY 4 OZ OINT TP SCH ×2 (09:17→20:02)
[2019-02-01] MEDS: DOCUSATE SODIUM LIQ 100 MG/10 ML UDC GT SCH (09:17)
[2019-02-01] MEDS: FERROUS SULFATE - FOR SA ONLY 330 MG/7.5 ML UDC GT SCH ×2 (09:17→17:19)
[2019-02-01] MEDS: BETADINE 5% TP SCH ×2 (09:17→20:02)
[2019-02-01] MEDS: CALCIUM CARBONATE 500 MG TAB.CHEW GT SCH ×2 (09:17→17:19)
[2019-02-01] MEDS: MULTIVIT W/MINERALS 1 TAB TABLET GT SCH (09:17)
[2019-02-01] MEDS: VIT A TP SCH ×2 (09:17→20:02)
[2019-02-01] MEDS: ZINC OXIDE 30 GM TUBE TP SCH ×2 (09:17→20:03)
[2019-02-01] MEDS: GLUCERNA 1.2 1,000 ML BOTTLE GT PRN (09:47)
[2019-02-01] MEDS: IV 1/2NS 1000 ML 1,000 ML IV PRN ×2 (09:47→20:00)
--- NOTE | 2019-02-01 19:38 | NUR ---
RECEIVED TRACH SHILEY 8 XLT PT ON MECH VENT WITH NOTED SETTINGS. PT IS AWAKE AND RESPONDS TO STIMULI WHEN SUCTION. TRACH IS PATENT AND SECURED. LAP CHECKER DONE. Q6 BREATHING TX GIVEN WITH NO ADVERSE REACTION NOTED. SUCTIONED MODERATE AMOUNT OF WHITE THICK SECRETIONS. VENT PLUGGED INTO RED OUTLET. ALARMS ON AND AUDIBLE. AMBU BAG @ BEDSIDE. NO RESP DISTRESS AT THIS TIME. WILL CONT TO MONITOR PT.
[2019-02-01 19:49] VITALS: BP 130/82
[2019-02-01] MEDS: ASCORBIC ACID 500 MG TABLET GT SCH (20:02)
[2019-02-01] MEDS: INSULIN GLARGINE, 100 UNIT/ML CARTRIDGE SQ SCH (21:40)
[2019-02-02] MEDS: INSULIN REGULAR, HUMAN 100 UNIT/ML 3 ML VIAL SQ PRN ×4 (00:01→17:29)
[2019-02-02] MEDS: ALBUTEROL FS 2.5 MG/3 ML VIAL.NEB NEB SCH ×4 (00:52→19:39)
[2019-02-02] MEDS: GLUCERNA 1.2 1,000 ML BOTTLE GT PRN (04:02)
[2019-02-02] MEDS: METOCLOPRAMIDE HCL 10 MG/10 ML UDC GT SCH ×3 (05:09→20:04)
[2019-02-02] MEDS: GABAPENTIN 300 MG CAPSULE GT SCH ×3 (05:09→20:03)
[2019-02-02] MEDS: DEXILANT 30 MG GT SCH (05:09)
[2019-02-02] MEDS: BLOOD SUGAR DIAGNOSTIC 1 EACH STRIP IN SCH ×3 (05:10→17:27)
[2019-02-02 07:47] VITALS: BP 102/66
[2019-02-02] MEDS: SIMETHICONE SUSP 40 MG/0.6 ML BOTTLE GT SCH ×2 (08:00→20:03)
[2019-02-02 08:08] LABS: BASOPHILS # (AUTO) 0.1 /CMM (0.0-0.2); BASOPHILS % (AUTO) 0.4 % (0.0-2.0); EOSINOPHILS % (AUTO) 5.9 % (0.0-6.0); HEMATOCRIT 25 % (33-45); HEMOGLOBIN 8.2 g/dL (11.5-14.8); LYMPHOCYTES # (AUTO) 3.4 /CMM (0.8-4.8); MEAN CORPUSCULAR HGB CONC 33 g/dl (31.0-36.0); MEAN CORPUSCULAR VOLUME 99 fL (82-100); MONOCYTES # (AUTO) 1.1 /CMM (0.1-1.30); MONOCYTES % (AUTO) 8.4 % (2.0-12.0); NEUTROPHILS # (AUTO) 7.4 /CMM (1.8-8.9); NEUTROPHILS % (AUTO) 58.3 % (43.0-81.0); PLATELET COUNT (AUTO) 267 /CMM (150-450); RED BLOOD CELL COUNT(AUTO) 2.48 MIL/uL (4.0-5.2); WHITE BLOOD COUNT (AUTO) 12.6 K/uL (4.3-11.0)
--- NOTE | 2019-02-02 08:53 | NUR ---
STEPHEN received call from Jadiel at Dr. Fischer dental office stating that Dr. Elliott needed to reschedule his original apt. from 02/02/19 to 02/04/19 at 12:15pm. STEPHEN notified patients responsible green party/Sister Beckie Chu [phone] of the dental cleaning date and time change to Thursday02/04/19 12:15 pm. Family was agreeable to plan. STEPHEN also notified charge nurse.
[2019-02-02] MEDS: HYDROGEN PEROXIDE 480 ML BOTTLE TP SCH ×2 (08:58→20:27)
[2019-02-02] MEDS: ZINC OXIDE 30 GM TUBE TP SCH ×2 (09:00→20:05)
[2019-02-02] MEDS: [UNRECOGNIZED DRUG - OTHER] TP SCH ×2 (09:00→20:04)
[2019-02-02] MEDS: Z GUARD REMEDY 4 OZ OINT TP SCH ×2 (09:00→20:05)
[2019-02-02] MEDS ORDERED: AMIKACIN 350 MG in IV D5W 100 ML IV ONE (09:00)
[2019-02-02] MEDS: CLOTRIMAZOLE 1% 15 GM TUBE TP SCH ×2 (09:00→20:04)
[2019-02-02] MEDS: BETADINE 5% TP SCH ×2 (09:00→20:04)
[2019-02-02] MEDS: VIT A TP SCH ×2 (09:00→20:04)
--- NOTE | 2019-02-02 09:02 | NUR ---
Seen and examined by Dr. Luis, gave an order to check BMP today. Last BMP on 01/31 Creat 2.9. Order carried out. Resident continue on IVF / NS at 80 cc/hr.
[2019-02-02] MEDS: TRILEPTAL GT SCH ×2 (09:11→20:03)
[2019-02-02] MEDS: MULTIVIT W/MINERALS 1 TAB TABLET GT SCH (09:11)
[2019-02-02] MEDS: PROSOURCE DIETARY LIQUID 30 ML LIQUID GT SCH ×2 (09:11→17:27)
[2019-02-02] MEDS: CALCIUM CARBONATE 500 MG TAB.CHEW GT SCH ×2 (09:11→17:27)
[2019-02-02] MEDS: FERROUS SULFATE - FOR SA ONLY 330 MG/7.5 ML UDC GT SCH ×2 (09:11→17:27)
[2019-02-02] MEDS: DOCUSATE SODIUM LIQ 100 MG/10 ML UDC GT SCH (09:11)
[2019-02-02] MEDS: ACIDOPHILUS/BULGARICUS 1 EACH TAB.CHEW GT SCH ×2 (09:11→17:27)
[2019-02-02] MEDS: LEVETIRACETAM SOL (5 ML) 100 MG/ML UDC GT SCH ×2 (09:11→20:03)
[2019-02-02 09:19] LABS: BAND % (MANUAL) 1 % (0.0-5.0); EOSINOPHILS % (MANUAL) 6 % (0-4); LYMPHOCYTES % (MANUAL) 31 % (16-48); METAMYELOCYTES % 2 % (0-0); MONOCYTES % (MANUAL) 7 % (0-11.0); MYELOCYTES % 3 % (0-0); NEUTROPHILS % (MANUAL) 50 (42-76)
[2019-02-02] MEDS: IV 1/2NS 1000 ML 1,000 ML IV PRN ×2 (09:32→22:35)
[2019-02-02 09:39] LABS: CALCIUM, SERUM 9.3 mg/dL (8.5-10.1); CREATININE 2.7 mg/dL (0.6-1.3); POTASSIUM 3.7 mmol/L (3.5-5.1)
--- NOTE | 2019-02-02 14:30 | NUR ---
Relayed BMP result to Dr. Luis. BUN 46, Creat 2.7.
[2019-02-02] MEDS: ASCORBIC ACID 500 MG TABLET GT SCH (20:04)
[2019-02-02 20:32] VITALS: BP 123/71
[2019-02-02] MEDS: INSULIN GLARGINE, 100 UNIT/ML CARTRIDGE SQ SCH (22:11)
[2019-02-03] MEDS: BLOOD SUGAR DIAGNOSTIC 1 EACH STRIP IN SCH ×5 (00:18→23:47)
[2019-02-03] MEDS: GLUCERNA 1.2 1,000 ML BOTTLE GT PRN ×2 (00:18→17:35)
[2019-02-03] MEDS: INSULIN REGULAR, HUMAN 100 UNIT/ML 3 ML VIAL SQ PRN ×5 (00:20→23:49)
[2019-02-03] MEDS: ALBUTEROL FS 2.5 MG/3 ML VIAL.NEB NEB SCH ×4 (00:33→19:46)
[2019-02-03] MEDS: METOCLOPRAMIDE HCL 10 MG/10 ML UDC GT SCH ×3 (05:58→21:20)
[2019-02-03] MEDS: DEXILANT 30 MG GT SCH (05:58)
[2019-02-03] MEDS: GABAPENTIN 300 MG CAPSULE GT SCH ×3 (05:58→21:20)
--- NOTE | 2019-02-03 06:06 | NUR ---
Patient still with continuous IV hydration 1/2 NS 80 ml/hr.Stable no changes in condition.
[2019-02-03 07:26] VITALS: BP 104/57
[2019-02-03] MEDS: DOCUSATE SODIUM LIQ 100 MG/10 ML UDC GT SCH (08:54)
[2019-02-03] MEDS: SIMETHICONE SUSP 40 MG/0.6 ML BOTTLE GT SCH ×2 (08:54→20:58)
[2019-02-03] MEDS: FERROUS SULFATE - FOR SA ONLY 330 MG/7.5 ML UDC GT SCH ×2 (08:54→17:36)
[2019-02-03] MEDS: ACIDOPHILUS/BULGARICUS 1 EACH TAB.CHEW GT SCH ×2 (08:55→17:36)
[2019-02-03] MEDS: BETADINE 5% TP SCH ×2 (08:55→21:20)
[2019-02-03] MEDS: LEVETIRACETAM SOL (5 ML) 100 MG/ML UDC GT SCH ×2 (08:55→21:20)
[2019-02-03] MEDS: MULTIVIT W/MINERALS 1 TAB TABLET GT SCH (08:55)
[2019-02-03] MEDS: CALCIUM CARBONATE 500 MG TAB.CHEW GT SCH ×2 (08:55→17:36)
[2019-02-03] MEDS: TRILEPTAL GT SCH ×2 (08:55→21:20)
[2019-02-03] MEDS: PROSOURCE DIETARY LIQUID 30 ML LIQUID GT SCH ×2 (08:55→17:36)
[2019-02-03] MEDS: [UNRECOGNIZED DRUG - OTHER] TP SCH ×2 (08:56→21:20)
[2019-02-03] MEDS: Z GUARD REMEDY 4 OZ OINT TP SCH ×2 (08:56→21:20)
[2019-02-03] MEDS: CLOTRIMAZOLE 1% 15 GM TUBE TP SCH ×2 (08:56→21:20)
[2019-02-03] MEDS: VIT A TP SCH ×2 (08:56→21:20)
[2019-02-03] MEDS: ZINC OXIDE 30 GM TUBE TP SCH ×2 (08:57→21:20)
[2019-02-03] MEDS: HYDROGEN PEROXIDE 480 ML BOTTLE TP SCH ×2 (09:00→19:46)
--- NOTE | 2019-02-03 11:15 | NUR ---
DR. LEWIS NOTIFIED REGARDING STOP DATE FOR PT'S IV FLUIDS OF 1/2NS, PER MD ORDER D/C IV 1/2NS 1,000ML
[2019-02-03 20:07] VITALS: BP 112/70
[2019-02-03] MEDS: ASCORBIC ACID 500 MG TABLET GT SCH (21:20)
[2019-02-03] MEDS: INSULIN GLARGINE, 100 UNIT/ML CARTRIDGE SQ SCH (22:39)
[2019-02-04] MEDS: ALBUTEROL FS 2.5 MG/3 ML VIAL.NEB NEB SCH ×4 (01:40→19:32)
[2019-02-04] MEDS: METOCLOPRAMIDE HCL 10 MG/10 ML UDC GT SCH ×3 (05:18→20:47)
[2019-02-04] MEDS: GABAPENTIN 300 MG CAPSULE GT SCH ×3 (05:18→20:47)
[2019-02-04] MEDS: DEXILANT 30 MG GT SCH (05:18)
[2019-02-04] MEDS: BLOOD SUGAR DIAGNOSTIC 1 EACH STRIP IN SCH ×3 (06:04→17:53)
[2019-02-04] MEDS: INSULIN REGULAR, HUMAN 100 UNIT/ML 3 ML VIAL SQ PRN ×3 (06:05→17:55)
[2019-02-04 07:58] VITALS: BP 119/76
[2019-02-04] MEDS: SIMETHICONE SUSP 40 MG/0.6 ML BOTTLE GT SCH ×2 (08:00→20:47)
[2019-02-04] MEDS: Z GUARD REMEDY 4 OZ OINT TP SCH ×2 (09:00→20:48)
[2019-02-04] MEDS: [UNRECOGNIZED DRUG - OTHER] TP SCH ×2 (09:00→20:48)
[2019-02-04] MEDS: VIT A TP SCH ×2 (09:00→20:48)
[2019-02-04] MEDS: ZINC OXIDE 30 GM TUBE TP SCH ×2 (09:00→20:48)
[2019-02-04] MEDS: CLOTRIMAZOLE 1% 15 GM TUBE TP SCH ×2 (09:00→20:48)
[2019-02-04] MEDS: BETADINE 5% TP SCH ×2 (09:00→20:48)
--- NOTE | 2019-02-04 09:00 | NUR ---
resident will be weight on thursday02/07/19. Addendum: 02/06/19 at 1849 by ALYX JANE RN Amended: Links added.
--- NOTE | 2019-02-04 09:00 | NUR ---
RESIDENT WILL BE WEIGHT ON 02/07/19. Addendum: 02/06/19 at 1830 by ALYX JANE RN Amended: Links added.
--- NOTE | 2019-02-04 09:00 | NUR ---
RESIDENT WILL BE WEIGHT ON Thursday02/07/19. Addendum: 02/06/19 at 1828 by AYLX JANE RN Amended: Links added.
[2019-02-04] MEDS: FERROUS SULFATE - FOR SA ONLY 330 MG/7.5 ML UDC GT SCH ×2 (09:16→16:51)
[2019-02-04] MEDS: DOCUSATE SODIUM LIQ 100 MG/10 ML UDC GT SCH (09:16)
[2019-02-04] MEDS: TRILEPTAL GT SCH ×2 (09:17→20:47)
[2019-02-04] MEDS: ACIDOPHILUS/BULGARICUS 1 EACH TAB.CHEW GT SCH ×2 (09:17→16:51)
[2019-02-04] MEDS: LEVETIRACETAM SOL (5 ML) 100 MG/ML UDC GT SCH ×2 (09:17→20:47)
[2019-02-04] MEDS: PROSOURCE DIETARY LIQUID 30 ML LIQUID GT SCH ×2 (09:17→16:51)
[2019-02-04] MEDS: MULTIVIT W/MINERALS 1 TAB TABLET GT SCH (09:17)
[2019-02-04] MEDS: CALCIUM CARBONATE 500 MG TAB.CHEW GT SCH ×2 (09:17→16:51)
[2019-02-04] MEDS: HYDROGEN PEROXIDE 480 ML BOTTLE TP SCH ×2 (11:30→20:48)
--- NOTE | 2019-02-04 16:28 | NUR ---
The patient was seen today by Dr. Elliott [phone] for her annual dental exam. No new order per Dr. Elliott. Per Dr. Fischer Progress Note state: Calculous, generalized gingivitis, yellow film over enamel, pt. apprehensive, no decay noted, Excessive Bleeding. Cleaning and scaling, missing teeth (5,6,7,8,9,10,12,21). STEPHEN communicated to family, Surjit Salinas [phone]. Surjit expressed understanding. Addendum: 02/04/19 at 1629 by JOSE GUADALUPE MITCHELL Family Notified was Beckie Chu [phone].
[2019-02-04] MEDS: GLUCERNA 1.2 1,000 ML BOTTLE GT PRN (17:04)
[2019-02-04 20:22] VITALS: BP 131/72
[2019-02-04] MEDS: ASCORBIC ACID 500 MG TABLET GT SCH (20:48)
[2019-02-04] MEDS: INSULIN GLARGINE, 100 UNIT/ML CARTRIDGE SQ SCH (22:22)
[2019-02-05] MEDS: BLOOD SUGAR DIAGNOSTIC 1 EACH STRIP IN SCH ×4 (00:54→17:50)
[2019-02-05] MEDS: INSULIN REGULAR, HUMAN 100 UNIT/ML 3 ML VIAL SQ PRN ×4 (00:55→17:54)
[2019-02-05] MEDS: ALBUTEROL FS 2.5 MG/3 ML VIAL.NEB NEB SCH ×4 (01:36→19:41)
[2019-02-05] MEDS: DEXILANT 30 MG GT SCH (05:56)
[2019-02-05] MEDS: METOCLOPRAMIDE HCL 10 MG/10 ML UDC GT SCH ×3 (05:56→21:37)
[2019-02-05] MEDS: GABAPENTIN 300 MG CAPSULE GT SCH ×3 (05:56→21:37)
[2019-02-05 07:57] VITALS: BP 143/87
[2019-02-05] MEDS: CALCIUM CARBONATE 500 MG TAB.CHEW GT SCH ×2 (08:20→16:00)
[2019-02-05] MEDS: TRILEPTAL GT SCH ×2 (08:20→21:37)
[2019-02-05] MEDS: MULTIVIT W/MINERALS 1 TAB TABLET GT SCH (08:20)
[2019-02-05] MEDS: FERROUS SULFATE - FOR SA ONLY 330 MG/7.5 ML UDC GT SCH ×2 (08:20→16:00)
[2019-02-05] MEDS: SIMETHICONE SUSP 40 MG/0.6 ML BOTTLE GT SCH ×2 (08:20→20:22)
[2019-02-05] MEDS: ACIDOPHILUS/BULGARICUS 1 EACH TAB.CHEW GT SCH ×2 (08:20→16:00)
[2019-02-05] MEDS: LEVETIRACETAM SOL (5 ML) 100 MG/ML UDC GT SCH ×2 (08:20→21:37)
[2019-02-05] MEDS: DOCUSATE SODIUM LIQ 100 MG/10 ML UDC GT SCH (08:20)
[2019-02-05] MEDS: PROSOURCE DIETARY LIQUID 30 ML LIQUID GT SCH ×2 (08:20→16:00)
[2019-02-05] MEDS: [UNRECOGNIZED DRUG - OTHER] TP SCH ×2 (08:52→21:37)
[2019-02-05] MEDS: VIT A TP SCH ×2 (08:52→21:37)
[2019-02-05] MEDS: Z GUARD REMEDY 4 OZ OINT TP SCH ×2 (08:52→21:38)
[2019-02-05] MEDS: BETADINE 5% TP SCH ×2 (08:52→21:37)
[2019-02-05] MEDS: CLOTRIMAZOLE 1% 15 GM TUBE TP SCH ×2 (08:52→21:37)
[2019-02-05] MEDS: ZINC OXIDE 30 GM TUBE TP SCH ×2 (08:53→21:38)
[2019-02-05] MEDS: HYDROGEN PEROXIDE 480 ML BOTTLE TP SCH ×2 (09:00→21:00)
[2019-02-05] MEDS: GLUCERNA 1.2 1,000 ML BOTTLE GT PRN (15:59)
[2019-02-05 19:59] VITALS: BP 128/73
[2019-02-05] MEDS: ASCORBIC ACID 500 MG TABLET GT SCH (21:37)
[2019-02-05] MEDS: INSULIN GLARGINE, 100 UNIT/ML CARTRIDGE SQ SCH (22:55)
[2019-02-06] MEDS: BLOOD SUGAR DIAGNOSTIC 1 EACH STRIP IN SCH ×5 (00:54→23:46)
[2019-02-06] MEDS: INSULIN REGULAR, HUMAN 100 UNIT/ML 3 ML VIAL SQ PRN ×3 (00:55→17:43)
[2019-02-06] MEDS: ALBUTEROL FS 2.5 MG/3 ML VIAL.NEB NEB SCH ×4 (01:17→19:26)
[2019-02-06] MEDS: GABAPENTIN 300 MG CAPSULE GT SCH ×3 (05:10→21:22)
[2019-02-06] MEDS: METOCLOPRAMIDE HCL 10 MG/10 ML UDC GT SCH ×3 (05:10→21:22)
[2019-02-06] MEDS: DEXILANT 30 MG GT SCH (05:10)
[2019-02-06 07:49] VITALS: BP 104/62
[2019-02-06] MEDS: SIMETHICONE SUSP 40 MG/0.6 ML BOTTLE GT SCH ×2 (08:31→20:00)
[2019-02-06] MEDS: LEVETIRACETAM SOL (5 ML) 100 MG/ML UDC GT SCH ×2 (08:31→21:22)
[2019-02-06] MEDS: TRILEPTAL GT SCH ×2 (08:31→21:22)
[2019-02-06] MEDS: FERROUS SULFATE - FOR SA ONLY 330 MG/7.5 ML UDC GT SCH ×2 (08:31→16:30)
[2019-02-06] MEDS: DOCUSATE SODIUM LIQ 100 MG/10 ML UDC GT SCH (08:31)
[2019-02-06] MEDS: ACIDOPHILUS/BULGARICUS 1 EACH TAB.CHEW GT SCH ×2 (08:31→16:30)
[2019-02-06] MEDS: CALCIUM CARBONATE 500 MG TAB.CHEW GT SCH ×2 (08:32→16:30)
[2019-02-06] MEDS: PROSOURCE DIETARY LIQUID 30 ML LIQUID GT SCH ×2 (08:32→16:30)
[2019-02-06] MEDS: VIT A TP SCH ×2 (08:32→21:23)
[2019-02-06] MEDS: MULTIVIT W/MINERALS 1 TAB TABLET GT SCH (08:32)
[2019-02-06] MEDS: [UNRECOGNIZED DRUG - OTHER] TP SCH ×2 (08:32→21:23)
[2019-02-06] MEDS: BETADINE 5% TP SCH ×2 (08:32→21:23)
[2019-02-06] MEDS: Z GUARD REMEDY 4 OZ OINT TP SCH ×2 (08:33→21:23)
[2019-02-06] MEDS: ZINC OXIDE 30 GM TUBE TP SCH ×2 (08:33→21:23)
[2019-02-06] MEDS: CLOTRIMAZOLE 1% 15 GM TUBE TP SCH ×2 (08:33→21:23)
[2019-02-06] MEDS: HYDROGEN PEROXIDE 480 ML BOTTLE TP SCH ×2 (09:49→21:23)
[2019-02-06] MEDS: GLUCERNA 1.2 1,000 ML BOTTLE GT PRN (14:30)
--- NOTE | 2019-02-06 16:08 | NUR ---
Pt has already completed antibiotic therapy. NAN Loredo ordered to do CBC and urine culture for ESBL clearance.
--- NOTE | 2019-02-06 16:18 | NUR ---
Pt's urine yellowish in color, no foul odor. Pt's temp 98.3 F.
[2019-02-06 20:41] VITALS: BP 108/69
[2019-02-06] MEDS: ASCORBIC ACID 500 MG TABLET GT SCH (21:22)
[2019-02-06] MEDS: INSULIN GLARGINE, 100 UNIT/ML CARTRIDGE SQ SCH (21:23)
[2019-02-07] MEDS: ALBUTEROL FS 2.5 MG/3 ML VIAL.NEB NEB SCH ×4 (01:30→19:35)
[2019-02-07] MEDS: GABAPENTIN 300 MG CAPSULE GT SCH ×3 (05:00→20:54)
[2019-02-07] MEDS: METOCLOPRAMIDE HCL 10 MG/10 ML UDC GT SCH ×3 (05:00→20:54)
[2019-02-07] MEDS: DEXILANT 30 MG GT SCH (06:00)
[2019-02-07] MEDS: BLOOD SUGAR DIAGNOSTIC 1 EACH STRIP IN SCH ×4 (06:00→23:26)
[2019-02-07 07:28] LABS: BASOPHILS # (AUTO) 0.1 /CMM (0.0-0.2); BASOPHILS % (AUTO) 0.6 % (0.0-2.0); HEMATOCRIT 23 % (33-45); HEMOGLOBIN 7.9 g/dL (11.5-14.8); LYMPHOCYTES # (AUTO) 3.2 /CMM (0.8-4.8); LYMPHOCYTES % (AUTO) 23.7 % (20.0-44.0); MEAN CORPUSCULAR HGB CONC 34 g/dl (31.0-36.0); MEAN CORPUSCULAR VOLUME 99 fL (82-100); MONOCYTES # (AUTO) 1.1 /CMM (0.1-1.30); MONOCYTES % (AUTO) 8.1 % (2.0-12.0); NEUTROPHILS # (AUTO) 8.5 /CMM (1.8-8.9); NEUTROPHILS % (AUTO) 63.6 % (43.0-81.0); PLATELET COUNT (AUTO) 349 /CMM (150-450); RED BLOOD CELL COUNT(AUTO) 2.35 MIL/uL (4.0-5.2); WHITE BLOOD COUNT (AUTO) 13.4 K/uL (4.3-11.0)
[2019-02-07 07:52] VITALS: BP 138/89
--- NOTE | 2019-02-07 08:00 | NUR ---
Bourgeois catheter noted bypassing and with blockage. New Bourgeois-catheter inserted with clear yellow urine. Tolerated procedure well.
[2019-02-07 08:04] LABS: BAND % (MANUAL) 1 % (0.0-5.0); EOSINOPHILS % (MANUAL) 4 % (0-4); LYMPHOCYTES % (MANUAL) 26 % (16-48); MONOCYTES % (MANUAL) 5 % (0-11.0); NEUTROPHILS % (MANUAL) 64 (42-76)
[2019-02-07] MEDS: HYDROGEN PEROXIDE 480 ML BOTTLE TP SCH ×2 (08:15→20:54)
[2019-02-07] MEDS: LEVETIRACETAM SOL (5 ML) 100 MG/ML UDC GT SCH ×2 (08:50→20:54)
[2019-02-07] MEDS: DOCUSATE SODIUM LIQ 100 MG/10 ML UDC GT SCH (08:50)
[2019-02-07] MEDS: SIMETHICONE SUSP 40 MG/0.6 ML BOTTLE GT SCH ×2 (08:50→20:54)
[2019-02-07] MEDS: FERROUS SULFATE - FOR SA ONLY 330 MG/7.5 ML UDC GT SCH ×2 (08:50→17:00)
[2019-02-07] MEDS: ACIDOPHILUS/BULGARICUS 1 EACH TAB.CHEW GT SCH ×2 (08:51→17:00)
[2019-02-07] MEDS: TRILEPTAL GT SCH ×2 (08:51→20:54)
[2019-02-07] MEDS: PROSOURCE DIETARY LIQUID 30 ML LIQUID GT SCH ×2 (08:53→17:00)
[2019-02-07] MEDS: MULTIVIT W/MINERALS 1 TAB TABLET GT SCH (08:54)
[2019-02-07] MEDS: [UNRECOGNIZED DRUG - OTHER] TP SCH ×2 (08:54→20:54)
[2019-02-07] MEDS: VIT A TP SCH ×2 (08:54→20:54)
[2019-02-07] MEDS: CALCIUM CARBONATE 500 MG TAB.CHEW GT SCH ×2 (08:54→17:00)
[2019-02-07] MEDS: CLOTRIMAZOLE 1% 15 GM TUBE TP SCH ×2 (09:00→20:55)
[2019-02-07] MEDS: ZINC OXIDE 30 GM TUBE TP SCH ×2 (09:00→20:55)
[2019-02-07] MEDS: Z GUARD REMEDY 4 OZ OINT TP SCH ×2 (09:00→20:55)
[2019-02-07] MEDS: GLUCERNA 1.2 1,000 ML BOTTLE GT PRN (13:59)
[2019-02-07] MEDS: INSULIN REGULAR, HUMAN 100 UNIT/ML 3 ML VIAL SQ PRN ×3 (14:02→23:27)
--- NOTE | 2019-02-07 16:00 | NUR ---
Notified Dr Luis of WBC 13.4 Hgb 7.9 Hct 23. Preliminary urine culture result shows gram negative rods and Strep agalactiae group B. Relayed to NAN Loredo. Pt's urine yellowish in color, no foul odor. Pt's temp 98.1 F.
[2019-02-07 20:34] VITALS: BP 117/66
[2019-02-07] MEDS: ASCORBIC ACID 500 MG TABLET GT SCH (20:54)
[2019-02-07] MEDS: INSULIN GLARGINE, 100 UNIT/ML CARTRIDGE SQ SCH (21:01)
[2019-02-08] MEDS: ALBUTEROL FS 2.5 MG/3 ML VIAL.NEB NEB SCH ×4 (00:50→19:42)
[2019-02-08] MEDS: METOCLOPRAMIDE HCL 10 MG/10 ML UDC GT SCH ×3 (05:32→21:11)
[2019-02-08] MEDS: DEXILANT 30 MG GT SCH (05:32)
[2019-02-08] MEDS: GABAPENTIN 300 MG CAPSULE GT SCH ×3 (05:32→21:11)
[2019-02-08] MEDS: BLOOD SUGAR DIAGNOSTIC 1 EACH STRIP IN SCH ×4 (05:32→23:44)
[2019-02-08 07:41] VITALS: BP 116/82
[2019-02-08] MEDS: HYDROGEN PEROXIDE 480 ML BOTTLE TP SCH ×2 (08:15→20:15)
[2019-02-08] MEDS: ACIDOPHILUS/BULGARICUS 1 EACH TAB.CHEW GT SCH ×2 (08:25→16:51)
[2019-02-08] MEDS: SIMETHICONE SUSP 40 MG/0.6 ML BOTTLE GT SCH ×2 (08:25→20:00)
[2019-02-08] MEDS: PROSOURCE DIETARY LIQUID 30 ML LIQUID GT SCH ×2 (08:25→16:52)
[2019-02-08] MEDS: FERROUS SULFATE - FOR SA ONLY 330 MG/7.5 ML UDC GT SCH ×2 (08:25→16:51)
[2019-02-08] MEDS: MULTIVIT W/MINERALS 1 TAB TABLET GT SCH (08:25)
[2019-02-08] MEDS: DOCUSATE SODIUM LIQ 100 MG/10 ML UDC GT SCH (08:25)
[2019-02-08] MEDS: CALCIUM CARBONATE 500 MG TAB.CHEW GT SCH ×2 (08:25→16:52)
[2019-02-08] MEDS: LEVETIRACETAM SOL (5 ML) 100 MG/ML UDC GT SCH ×2 (08:25→21:11)
[2019-02-08] MEDS: TRILEPTAL GT SCH ×2 (08:25→21:11)
[2019-02-08] MEDS: GLUCERNA 1.2 1,000 ML BOTTLE GT PRN (08:34)
[2019-02-08] MEDS: VIT A TP SCH ×2 (09:00→21:11)
[2019-02-08] MEDS: ZINC OXIDE 30 GM TUBE TP SCH ×2 (09:00→21:12)
[2019-02-08] MEDS: CLOTRIMAZOLE 1% 15 GM TUBE TP SCH ×2 (09:00→21:11)
[2019-02-08] MEDS: [UNRECOGNIZED DRUG - OTHER] TP SCH ×2 (09:00→21:11)
[2019-02-08] MEDS: Z GUARD REMEDY 4 OZ OINT TP SCH ×2 (09:00→21:11)
--- NOTE | 2019-02-08 11:34 | NUR ---
Seen and examined by Dr. Luis, made aware of final urine culture result showing E. Coli ESBL and Strep Agalactiae (for ESBL clearance) he said to f/u with ID Gertrude. No new order given.
[2019-02-08] MEDS: INSULIN REGULAR, HUMAN 100 UNIT/ML 3 ML VIAL SQ PRN ×3 (12:30→23:45)
--- NOTE | 2019-02-08 14:50 | NUR ---
Notified PALLIATIVE NURSE Lj of final urine culture showing E. Coli ESBL and Strep Agalactiae Group B, with new order given to start patient with Rocephin 1 gm. QD x 7days and Amikacin pharmacy to dose. Spoke with Donnell, [facility] IV pharmacy department, said Rocephin is covered by insurance and therefore to start 1st dose from the ekit., but will call back for Amikacin dosing and coverage. [facility] pharmacist c/o Oksana informed. Resident's sister Beckie notified of new order.
--- NOTE | 2019-02-08 16:03 | NUR ---
STEPHEN called patients responsible libertarian, Beckie Chu [phone], to invite them to the family support group taking place 02/09/19 from 11 am-12 pm in the old admin conference room. Call went to voicemail and STEPHEN left message with above stated details. Beckie returned the call and informed STEPHEN thats he wont be able to make it to the family support group. STEPHEN validated her efforts to make it.
[2019-02-08] MEDS: CEFTRIAXONE 1 G in IV D5W 50 ML IV SCH (16:50)
[2019-02-08] MEDS: AMIKACIN 350 MG in IV D5W 100 ML IV SCH (18:40)
[2019-02-08] MEDS: ASCORBIC ACID 500 MG TABLET GT SCH (21:11)
[2019-02-08] MEDS: INSULIN GLARGINE, 100 UNIT/ML CARTRIDGE SQ SCH (21:12)
[2019-02-09] MEDS: ALBUTEROL FS 2.5 MG/3 ML VIAL.NEB NEB SCH ×4 (01:18→19:41)
[2019-02-09] MEDS: METOCLOPRAMIDE HCL 10 MG/10 ML UDC GT SCH ×3 (05:51→20:38)
[2019-02-09] MEDS: DEXILANT 30 MG GT SCH (05:51)
[2019-02-09] MEDS: GABAPENTIN 300 MG CAPSULE GT SCH ×3 (05:51→20:38)
[2019-02-09] MEDS: BLOOD SUGAR DIAGNOSTIC 1 EACH STRIP IN SCH ×3 (05:51→17:11)
[2019-02-09 07:51] VITALS: BP 107/69
[2019-02-09] MEDS: ACIDOPHILUS/BULGARICUS 1 EACH TAB.CHEW GT SCH ×2 (08:21→17:33)
[2019-02-09] MEDS: CALCIUM CARBONATE 500 MG TAB.CHEW GT SCH ×2 (08:21→17:33)
[2019-02-09] MEDS: SIMETHICONE SUSP 40 MG/0.6 ML BOTTLE GT SCH ×2 (08:21→20:38)
[2019-02-09] MEDS: LEVETIRACETAM SOL (5 ML) 100 MG/ML UDC GT SCH ×2 (08:21→20:38)
[2019-02-09] MEDS: PROSOURCE DIETARY LIQUID 30 ML LIQUID GT SCH ×2 (08:21→17:33)
[2019-02-09] MEDS: FERROUS SULFATE - FOR SA ONLY 330 MG/7.5 ML UDC GT SCH ×2 (08:21→17:32)
[2019-02-09] MEDS: DOCUSATE SODIUM LIQ 100 MG/10 ML UDC GT SCH (08:21)
[2019-02-09] MEDS: MULTIVIT W/MINERALS 1 TAB TABLET GT SCH (08:21)
[2019-02-09] MEDS: TRILEPTAL GT SCH ×2 (08:21→20:38)
[2019-02-09] MEDS: Z GUARD REMEDY 4 OZ OINT TP SCH ×2 (09:00→20:39)
[2019-02-09] MEDS: VIT A TP SCH ×2 (09:00→20:39)
[2019-02-09] MEDS: [UNRECOGNIZED DRUG - OTHER] TP SCH ×2 (09:00→20:39)
[2019-02-09] MEDS: ZINC OXIDE 30 GM TUBE TP SCH ×2 (09:00→20:39)
[2019-02-09] MEDS: CLOTRIMAZOLE 1% 15 GM TUBE TP SCH ×2 (09:00→20:39)
[2019-02-09] MEDS: HYDROGEN PEROXIDE 480 ML BOTTLE TP SCH ×2 (09:00→21:00)
[2019-02-09] MEDS: INSULIN REGULAR, HUMAN 100 UNIT/ML 3 ML VIAL SQ PRN ×2 (12:04→17:35)
[2019-02-09] MEDS: CEFTRIAXONE 1 G in IV D5W 50 ML IV SCH (16:00)
[2019-02-09] MEDS: GLUCERNA 1.2 1,000 ML BOTTLE GT PRN (17:38)
[2019-02-09] MEDS: AMIKACIN 350 MG in IV D5W 100 ML IV SCH (17:56)
[2019-02-09 20:01] VITALS: BP 116/55
[2019-02-09] MEDS: ASCORBIC ACID 500 MG TABLET GT SCH (20:38)
[2019-02-09] MEDS: INSULIN GLARGINE, 100 UNIT/ML CARTRIDGE SQ SCH (21:35)
[2019-02-09] MEDS: BISACODYL SUPP (10 MG) 10 MG/SUPP.RECT SUPP.RECT RC PRN (22:00)
[2019-02-10] MEDS: BLOOD SUGAR DIAGNOSTIC 1 EACH STRIP IN SCH ×5 (00:34→23:50)
[2019-02-10] MEDS: INSULIN REGULAR, HUMAN 100 UNIT/ML 3 ML VIAL SQ PRN ×3 (00:39→23:51)
[2019-02-10] MEDS: ALBUTEROL FS 2.5 MG/3 ML VIAL.NEB NEB SCH ×4 (02:09→19:32)
[2019-02-10] MEDS: DEXILANT 30 MG GT SCH (05:40)
[2019-02-10] MEDS: METOCLOPRAMIDE HCL 10 MG/10 ML UDC GT SCH ×3 (05:40→20:57)
[2019-02-10] MEDS: GABAPENTIN 300 MG CAPSULE GT SCH ×3 (05:40→20:57)
[2019-02-10 07:59] VITALS: BP 140/79
[2019-02-10] MEDS: SIMETHICONE SUSP 40 MG/0.6 ML BOTTLE GT SCH ×2 (08:00→20:57)
[2019-02-10] MEDS: HYDROGEN PEROXIDE 480 ML BOTTLE TP SCH ×2 (08:30→20:16)
[2019-02-10] MEDS: DOCUSATE SODIUM LIQ 100 MG/10 ML UDC GT SCH (09:16)
[2019-02-10] MEDS: TRILEPTAL GT SCH ×2 (09:17→20:57)
[2019-02-10] MEDS: [UNRECOGNIZED DRUG - OTHER] TP SCH ×2 (09:17→20:57)
[2019-02-10] MEDS: ACIDOPHILUS/BULGARICUS 1 EACH TAB.CHEW GT SCH ×2 (09:17→17:12)
[2019-02-10] MEDS: MULTIVIT W/MINERALS 1 TAB TABLET GT SCH (09:17)
[2019-02-10] MEDS: FERROUS SULFATE - FOR SA ONLY 330 MG/7.5 ML UDC GT SCH ×2 (09:17→17:12)
[2019-02-10] MEDS: PROSOURCE DIETARY LIQUID 30 ML LIQUID GT SCH (09:17)
[2019-02-10] MEDS: LEVETIRACETAM SOL (5 ML) 100 MG/ML UDC GT SCH ×2 (09:17→20:57)
[2019-02-10] MEDS: CALCIUM CARBONATE 500 MG TAB.CHEW GT SCH ×2 (09:17→17:12)
[2019-02-10] MEDS: Z GUARD REMEDY 4 OZ OINT TP SCH ×2 (09:17→20:57)
[2019-02-10] MEDS: VIT A TP SCH ×2 (09:17→20:57)
[2019-02-10] MEDS: CEFTRIAXONE 1 G in IV D5W 50 ML IV SCH (16:23)
[2019-02-10] MEDS: GLUCERNA 1.2 1,000 ML BOTTLE GT PRN (17:24)
[2019-02-10] MEDS: AMIKACIN 350 MG in IV D5W 100 ML IV SCH (18:00)
[2019-02-10 18:58] LABS: CREATININE 2.8 mg/dL (0.6-1.3)
[2019-02-10] MEDS: ASCORBIC ACID 500 MG TABLET GT SCH (20:57)
[2019-02-10] MEDS: INSULIN GLARGINE, 100 UNIT/ML CARTRIDGE SQ SCH (22:08)
[2019-02-11] MEDS: ALBUTEROL FS 2.5 MG/3 ML VIAL.NEB NEB SCH ×4 (00:30→19:40)
[2019-02-11 04:38] VITALS: BP 104/65
[2019-02-11] MEDS: GABAPENTIN 300 MG CAPSULE GT SCH ×3 (05:16→20:43)
[2019-02-11] MEDS: DEXILANT 30 MG GT SCH (05:16)
[2019-02-11] MEDS: METOCLOPRAMIDE HCL 10 MG/10 ML UDC GT SCH ×3 (05:16→20:44)
[2019-02-11] MEDS: INSULIN REGULAR, HUMAN 100 UNIT/ML 3 ML VIAL SQ PRN ×3 (06:17→23:35)
[2019-02-11] MEDS: BLOOD SUGAR DIAGNOSTIC 1 EACH STRIP IN SCH ×4 (06:17→23:32)
[2019-02-11 07:47] VITALS: BP 102/68
[2019-02-11] MEDS: SIMETHICONE SUSP 40 MG/0.6 ML BOTTLE GT SCH ×2 (08:00→20:43)
[2019-02-11] MEDS: CLOTRIMAZOLE 1% 15 GM TUBE TP SCH ×2 (09:00→20:44)
[2019-02-11] MEDS: HYDROGEN PEROXIDE 480 ML BOTTLE TP SCH ×2 (09:00→21:00)
[2019-02-11] MEDS: ZINC OXIDE 30 GM TUBE TP SCH ×2 (09:00→20:44)
[2019-02-11] MEDS: LEVETIRACETAM SOL (5 ML) 100 MG/ML UDC GT SCH ×2 (09:54→20:43)
[2019-02-11] MEDS: FERROUS SULFATE - FOR SA ONLY 330 MG/7.5 ML UDC GT SCH ×2 (09:54→17:54)
[2019-02-11] MEDS: Z GUARD REMEDY 4 OZ OINT TP SCH ×2 (09:54→20:44)
[2019-02-11] MEDS: TRILEPTAL GT SCH ×2 (09:54→20:44)
[2019-02-11] MEDS: MULTIVIT W/MINERALS 1 TAB TABLET GT SCH (09:54)
[2019-02-11] MEDS: ACIDOPHILUS/BULGARICUS 1 EACH TAB.CHEW GT SCH ×2 (09:54→17:54)
[2019-02-11] MEDS: CALCIUM CARBONATE 500 MG TAB.CHEW GT SCH ×2 (09:54→17:54)
[2019-02-11] MEDS: DOCUSATE SODIUM LIQ 100 MG/10 ML UDC GT SCH (09:54)
[2019-02-11] MEDS: [UNRECOGNIZED DRUG - OTHER] TP SCH ×2 (09:54→20:44)
[2019-02-11] MEDS: VIT A TP SCH ×2 (09:54→20:44)
--- NOTE | 2019-02-11 11:49 | NUR ---
Amikacin trough level result (5.1, collected 02/10/19) faxed to [facility] IV department c/o Melissa.
[2019-02-11] MEDS: GLUCERNA 1.2 1,000 ML BOTTLE GT PRN (13:12)
[2019-02-11] MEDS: CEFTRIAXONE 1 G in IV D5W 50 ML IV SCH (17:00)
[2019-02-11] MEDS: AMIKACIN 350 MG in IV D5W 100 ML IV SCH (18:00)
[2019-02-11 20:03] VITALS: BP 116/72
[2019-02-11] MEDS: ASCORBIC ACID 500 MG TABLET GT SCH (20:44)
[2019-02-11] MEDS: INSULIN GLARGINE, 100 UNIT/ML CARTRIDGE SQ SCH (21:36)
[2019-02-12] MEDS: ALBUTEROL FS 2.5 MG/3 ML VIAL.NEB NEB SCH ×4 (02:06→19:22)
[2019-02-12] MEDS: GABAPENTIN 300 MG CAPSULE GT SCH ×3 (05:38→20:13)
[2019-02-12] MEDS: DEXILANT 30 MG GT SCH (05:38)
[2019-02-12] MEDS: METOCLOPRAMIDE HCL 10 MG/10 ML UDC GT SCH ×3 (05:38→20:14)
[2019-02-12] MEDS: INSULIN REGULAR, HUMAN 100 UNIT/ML 3 ML VIAL SQ PRN ×3 (05:41→23:15)
[2019-02-12] MEDS: BLOOD SUGAR DIAGNOSTIC 1 EACH STRIP IN SCH ×4 (05:41→23:13)
[2019-02-12 07:53] VITALS: BP 124/57
[2019-02-12] MEDS: VIT A TP SCH ×2 (08:43→20:14)
[2019-02-12] MEDS: FERROUS SULFATE - FOR SA ONLY 330 MG/7.5 ML UDC GT SCH ×2 (08:43→17:57)
[2019-02-12] MEDS: ACIDOPHILUS/BULGARICUS 1 EACH TAB.CHEW GT SCH ×2 (08:43→17:57)
[2019-02-12] MEDS: [UNRECOGNIZED DRUG - OTHER] TP SCH ×2 (08:43→20:14)
[2019-02-12] MEDS: CALCIUM CARBONATE 500 MG TAB.CHEW GT SCH ×2 (08:43→17:57)
[2019-02-12] MEDS: MULTIVIT W/MINERALS 1 TAB TABLET GT SCH (08:43)
[2019-02-12] MEDS: SIMETHICONE SUSP 40 MG/0.6 ML BOTTLE GT SCH ×2 (08:43→20:13)
[2019-02-12] MEDS: CLOTRIMAZOLE 1% 15 GM TUBE TP SCH ×2 (08:43→20:14)
[2019-02-12] MEDS: DOCUSATE SODIUM LIQ 100 MG/10 ML UDC GT SCH (08:43)
[2019-02-12] MEDS: LEVETIRACETAM SOL (5 ML) 100 MG/ML UDC GT SCH ×2 (08:43→20:13)
[2019-02-12] MEDS: Z GUARD REMEDY 4 OZ OINT TP SCH ×2 (08:43→20:14)
[2019-02-12] MEDS: TRILEPTAL GT SCH ×2 (08:43→20:14)
[2019-02-12] MEDS: ZINC OXIDE 30 GM TUBE TP SCH ×2 (08:44→20:14)
[2019-02-12] MEDS: HYDROGEN PEROXIDE 480 ML BOTTLE TP SCH ×2 (09:44→21:03)
[2019-02-12] MEDS: GLUCERNA 1.2 1,000 ML BOTTLE GT PRN (11:02)
[2019-02-12] MEDS: CEFTRIAXONE 1 G in IV D5W 50 ML IV SCH (15:07)
[2019-02-12] MEDS: AMIKACIN 350 MG in IV D5W 100 ML IV SCH (17:23)
[2019-02-12 20:02] VITALS: BP 105/63
[2019-02-12] MEDS: ASCORBIC ACID 500 MG TABLET GT SCH (20:14)
[2019-02-12] MEDS: INSULIN GLARGINE, 100 UNIT/ML CARTRIDGE SQ SCH (21:42)
[2019-02-13] MEDS: ALBUTEROL FS 2.5 MG/3 ML VIAL.NEB NEB SCH ×4 (01:28→19:56)
[2019-02-13] MEDS: DEXILANT 30 MG GT SCH (05:16)
[2019-02-13] MEDS: METOCLOPRAMIDE HCL 10 MG/10 ML UDC GT SCH ×3 (05:16→20:07)
[2019-02-13] MEDS: GABAPENTIN 300 MG CAPSULE GT SCH ×3 (05:16→20:07)
[2019-02-13] MEDS: BLOOD SUGAR DIAGNOSTIC 1 EACH STRIP IN SCH ×4 (06:04→23:11)
[2019-02-13] MEDS: INSULIN REGULAR, HUMAN 100 UNIT/ML 3 ML VIAL SQ PRN ×3 (06:05→23:14)
[2019-02-13 07:58] VITALS: BP 110/70
[2019-02-13] MEDS: SIMETHICONE SUSP 40 MG/0.6 ML BOTTLE GT SCH ×2 (08:06→20:07)
[2019-02-13] MEDS: TRILEPTAL GT SCH ×2 (08:07→20:07)
[2019-02-13] MEDS: VIT A TP SCH ×2 (08:07→20:08)
[2019-02-13] MEDS: CLOTRIMAZOLE 1% 15 GM TUBE TP SCH ×3 (08:07→20:08)
[2019-02-13] MEDS: ZINC OXIDE 30 GM TUBE TP SCH ×3 (08:07→20:08)
[2019-02-13] MEDS: MULTIVIT W/MINERALS 1 TAB TABLET GT SCH (08:07)
[2019-02-13] MEDS: Z GUARD REMEDY 4 OZ OINT TP SCH ×2 (08:07→20:08)
[2019-02-13] MEDS: [UNRECOGNIZED DRUG - OTHER] TP SCH ×2 (08:07→20:08)
[2019-02-13] MEDS: LEVETIRACETAM SOL (5 ML) 100 MG/ML UDC GT SCH ×2 (08:07→20:07)
[2019-02-13] MEDS: DOCUSATE SODIUM LIQ 100 MG/10 ML UDC GT SCH (08:07)
[2019-02-13] MEDS: ACIDOPHILUS/BULGARICUS 1 EACH TAB.CHEW GT SCH ×2 (08:07→16:20)
[2019-02-13] MEDS: CALCIUM CARBONATE 500 MG TAB.CHEW GT SCH ×2 (08:07→16:20)
[2019-02-13] MEDS: FERROUS SULFATE - FOR SA ONLY 330 MG/7.5 ML UDC GT SCH ×2 (08:07→16:20)
[2019-02-13] MEDS: HYDROGEN PEROXIDE 480 ML BOTTLE TP SCH ×2 (09:00→20:08)
[2019-02-13] MEDS: GLUCERNA 1.2 1,000 ML BOTTLE GT PRN (10:38)
[2019-02-13] MEDS: CEFTRIAXONE 1 G in IV D5W 50 ML IV SCH (16:14)
--- NOTE | 2019-02-13 17:30 | NUR ---
Peripheral line on RLE was dislodged and unable to put a new one. Informed Cloe Neves NP and gave order to d/c Amikacin and Ceftriaxone IV. Asymptomatic, no fever 98.8, no hematuria, no s/s of pain, urine output clear and light yellow. Sister Beckie informed at bedside. Will continue to monitor.
[2019-02-13 20:00] VITALS: BP 131/75
[2019-02-13] MEDS: ASCORBIC ACID 500 MG TABLET GT SCH (20:07)
[2019-02-13] MEDS: INSULIN GLARGINE, 100 UNIT/ML CARTRIDGE SQ SCH (21:28)
[2019-02-14] MEDS: ALBUTEROL FS 2.5 MG/3 ML VIAL.NEB NEB SCH ×4 (01:30→19:21)
[2019-02-14] MEDS: GLUCERNA 1.2 1,000 ML BOTTLE GT PRN ×2 (03:09→17:34)
[2019-02-14] MEDS: BLOOD SUGAR DIAGNOSTIC 1 EACH STRIP IN SCH ×4 (05:05→23:44)
[2019-02-14] MEDS: DEXILANT 30 MG GT SCH (05:05)
[2019-02-14] MEDS: METOCLOPRAMIDE HCL 10 MG/10 ML UDC GT SCH ×3 (05:05→21:10)
[2019-02-14] MEDS: GABAPENTIN 300 MG CAPSULE GT SCH ×3 (05:05→21:10)
[2019-02-14] MEDS: INSULIN REGULAR, HUMAN 100 UNIT/ML 3 ML VIAL SQ PRN ×4 (05:11→23:47)
[2019-02-14] MEDS: HYDROGEN PEROXIDE 480 ML BOTTLE TP SCH ×2 (07:53→19:21)
[2019-02-14] MEDS: SIMETHICONE SUSP 40 MG/0.6 ML BOTTLE GT SCH ×2 (08:00→20:00)
[2019-02-14] MEDS: FERROUS SULFATE - FOR SA ONLY 330 MG/7.5 ML UDC GT SCH ×2 (09:03→17:33)
[2019-02-14] MEDS: DOCUSATE SODIUM LIQ 100 MG/10 ML UDC GT SCH (09:03)
[2019-02-14] MEDS: LEVETIRACETAM SOL (5 ML) 100 MG/ML UDC GT SCH ×2 (09:05→21:10)
[2019-02-14] MEDS: ACIDOPHILUS/BULGARICUS 1 EACH TAB.CHEW GT SCH ×2 (09:05→17:33)
[2019-02-14] MEDS: TRILEPTAL GT SCH ×2 (09:05→21:10)
[2019-02-14] MEDS: CALCIUM CARBONATE 500 MG TAB.CHEW GT SCH ×2 (09:08→17:33)
[2019-02-14] MEDS: MULTIVIT W/MINERALS 1 TAB TABLET GT SCH (09:08)
[2019-02-14] MEDS: [UNRECOGNIZED DRUG - OTHER] TP SCH ×2 (09:08→21:10)
[2019-02-14] MEDS: Z GUARD REMEDY 4 OZ OINT TP SCH ×2 (09:08→21:10)
[2019-02-14] MEDS: VIT A TP SCH ×2 (09:08→21:10)
[2019-02-14] MEDS: CLOTRIMAZOLE 1% 15 GM TUBE TP SCH ×4 (09:08→21:10)
[2019-02-14] MEDS: ZINC OXIDE 30 GM TUBE TP SCH ×4 (09:09→21:10)
[2019-02-14 10:10] VITALS: BP 140/91
--- NOTE | 2019-02-14 15:54 | NUR ---
RT Pt received on ordered vent settings. Vent is plugged into red outlet w ranjite trach @ hob. Trach care done. No sob or respiratory distress noted through out shift. Addendum: 02/14/19 at 1801 by JULIETH REY RT Amended: Links added.
[2019-02-14] MEDS: LORAZEPAM 1 MG TABLET GT PRN (18:24)
--- NOTE | 2019-02-14 18:40 | NUR ---
Pt was seen by SELMA having a seizure. She immediately called for charge nurse to see pt. Charge nurse went to see pt immediately but seizure has already stopped when charge nurse saw pt. WATER SUPERVISOR described the pt as moving and shaking her arms. Pt was awake and tracking when charge nurse saw pt. Ativan was given as ordered for seizure. Pt was seen by NAN Vargas a few minutes after seizure episode. She said to notify pt's neurologist. Addendum: 02/14/19 at 1925 by SARITA GOMEZ RN Notified Beckie. Addendum: 02/15/19 at 1543 by SARITA GOMEZ RN BP 144/74 HR 92 R 18 T 98.2 F
[2019-02-14 20:15] VITALS: BP 140/72
[2019-02-14] MEDS: ASCORBIC ACID 500 MG TABLET GT SCH (21:10)
[2019-02-14] MEDS: INSULIN GLARGINE, 100 UNIT/ML CARTRIDGE SQ SCH (21:11)
[2019-02-15] MEDS: ALBUTEROL FS 2.5 MG/3 ML VIAL.NEB NEB SCH ×4 (01:22→19:04)
[2019-02-15] MEDS: DEXILANT 30 MG GT SCH (05:51)
[2019-02-15] MEDS: GABAPENTIN 300 MG CAPSULE GT SCH ×3 (05:51→21:28)
[2019-02-15] MEDS: METOCLOPRAMIDE HCL 10 MG/10 ML UDC GT SCH ×3 (05:51→21:28)
[2019-02-15] MEDS: BLOOD SUGAR DIAGNOSTIC 1 EACH STRIP IN SCH ×3 (05:51→18:38)
[2019-02-15 07:31] VITALS: BP 115/70
[2019-02-15] MEDS: CALCIUM CARBONATE 500 MG TAB.CHEW GT SCH ×2 (08:58→16:45)
[2019-02-15] MEDS: FERROUS SULFATE - FOR SA ONLY 330 MG/7.5 ML UDC GT SCH ×2 (08:58→16:45)
[2019-02-15] MEDS: LEVETIRACETAM SOL (5 ML) 100 MG/ML UDC GT SCH ×2 (08:58→21:28)
[2019-02-15] MEDS: MULTIVIT W/MINERALS 1 TAB TABLET GT SCH (08:58)
[2019-02-15] MEDS: SIMETHICONE SUSP 40 MG/0.6 ML BOTTLE GT SCH ×2 (08:58→20:00)
[2019-02-15] MEDS: DOCUSATE SODIUM LIQ 100 MG/10 ML UDC GT SCH (08:58)
[2019-02-15] MEDS: ACIDOPHILUS/BULGARICUS 1 EACH TAB.CHEW GT SCH ×2 (08:58→16:45)
[2019-02-15] MEDS: TRILEPTAL GT SCH ×2 (08:58→21:28)
[2019-02-15] MEDS: HYDROGEN PEROXIDE 480 ML BOTTLE TP SCH ×2 (09:00→19:04)
[2019-02-15] MEDS: [UNRECOGNIZED DRUG - OTHER] TP SCH ×2 (09:00→21:28)
[2019-02-15] MEDS: Z GUARD REMEDY 4 OZ OINT TP SCH ×2 (09:00→21:29)
[2019-02-15] MEDS: VIT A TP SCH ×2 (09:00→21:28)
[2019-02-15] MEDS: ZINC OXIDE 30 GM TUBE TP SCH ×4 (09:00→21:29)
[2019-02-15] MEDS: CLOTRIMAZOLE 1% 15 GM TUBE TP SCH ×4 (09:00→21:29)
--- NOTE | 2019-02-15 09:55 | NUR ---
RT Pt received on ordered vent settings. Vent is plugged into red outlet w spare trach @ hob. Trach care done. No sob or respiratory distress noted through out shift, will cont to monitor.
[2019-02-15] MEDS: INSULIN REGULAR, HUMAN 100 UNIT/ML 3 ML VIAL SQ PRN ×2 (12:50→18:39)
--- NOTE | 2019-02-15 13:15 | NUR ---
Seen by Dr Luis. Informed him that pt had a seizure episode yesterday and Ativan was given. He said to inform Dr Malave. Message left for Dr Malave.
[2019-02-15] MEDS: GLUCERNA 1.2 1,000 ML BOTTLE GT PRN (16:46)
--- NOTE | 2019-02-15 19:10 | NUR ---
NAN Parker (BONE GRINDER of Dr Mlaave) came. Informed her pt had a seizure yesterday, Ativan was given. Notified her of pt's seizure medications. She said she will not change the medications, however she ordered CBC BMP Mg Phos CXR and UA. Notified Beckie.
[2019-02-15 19:47] VITALS: BP 140/73
[2019-02-15] MEDS: ASCORBIC ACID 500 MG TABLET GT SCH (21:28)
[2019-02-15] MEDS: INSULIN GLARGINE, 100 UNIT/ML CARTRIDGE SQ SCH (21:29)
[2019-02-16] MEDS: BLOOD SUGAR DIAGNOSTIC 1 EACH STRIP IN SCH ×5 (00:23→23:49)
[2019-02-16] MEDS: INSULIN REGULAR, HUMAN 100 UNIT/ML 3 ML VIAL SQ PRN ×4 (00:24→23:52)
[2019-02-16] MEDS: ALBUTEROL FS 2.5 MG/3 ML VIAL.NEB NEB SCH ×4 (01:27→19:17)
[2019-02-16] MEDS: DEXILANT 30 MG GT SCH (05:52)
[2019-02-16] MEDS: GABAPENTIN 300 MG CAPSULE GT SCH ×3 (05:52→20:44)
[2019-02-16] MEDS: METOCLOPRAMIDE HCL 10 MG/10 ML UDC GT SCH ×3 (05:52→20:45)
[2019-02-16 06:49] LABS: BASOPHILS # (AUTO) 0.1 /CMM (0.0-0.2); BASOPHILS % (AUTO) 0.7 % (0.0-2.0); HEMATOCRIT 24 % (33-45); HEMOGLOBIN 8.3 g/dL (11.5-14.8); LYMPHOCYTES # (AUTO) 3.4 /CMM (0.8-4.8); LYMPHOCYTES % (AUTO) 30.9 % (20.0-44.0); MEAN CORPUSCULAR HGB CONC 35 g/dl (31.0-36.0); MEAN CORPUSCULAR VOLUME 100 fL (82-100); MONOCYTES # (AUTO) 1.1 /CMM (0.1-1.30); MONOCYTES % (AUTO) 9.9 % (2.0-12.0); NEUTROPHILS # (AUTO) 5.8 /CMM (1.8-8.9); NEUTROPHILS % (AUTO) 53.5 % (43.0-81.0); PLATELET COUNT (AUTO) 383 /CMM (150-450); RED BLOOD CELL COUNT(AUTO) 2.39 MIL/uL (4.0-5.2); WHITE BLOOD COUNT (AUTO) 10.9 K/uL (4.3-11.0)
[2019-02-16 07:22] LABS: MAGNESIUM 2.8 mg/dL (1.8-2.4); PHOSPHORUS 5.3 mg/dL (2.5-4.9)
[2019-02-16 07:26] LABS: CALCIUM, SERUM 10.6 mg/dL (8.5-10.1); CREATININE 2.6 mg/dL (0.6-1.3); POTASSIUM 3.5 mmol/L (3.5-5.1)
[2019-02-16 07:29] LABS: LYMPHOCYTES % (MANUAL) 45 % (16-48); MONOCYTES % (MANUAL) 6 % (0-11.0); NEUTROPHILS % (MANUAL) 43 (42-76)
[2019-02-16 07:30] LABS: BAND % (MANUAL) 1 % (0.0-5.0); EOSINOPHILS % (MANUAL) 3 % (0-4); MYELOCYTES % 2 % (0-0)
[2019-02-16] MEDS: SIMETHICONE SUSP 40 MG/0.6 ML BOTTLE GT SCH ×2 (08:00→20:38)
[2019-02-16 08:03] VITALS: BP 108/53
[2019-02-16] MEDS: HYDROGEN PEROXIDE 480 ML BOTTLE TP SCH ×2 (09:00→20:46)
[2019-02-16] MEDS: FERROUS SULFATE - FOR SA ONLY 330 MG/7.5 ML UDC GT SCH ×2 (09:22→17:15)
[2019-02-16] MEDS: ACIDOPHILUS/BULGARICUS 1 EACH TAB.CHEW GT SCH ×2 (09:22→17:15)
[2019-02-16] MEDS: DOCUSATE SODIUM LIQ 100 MG/10 ML UDC GT SCH (09:22)
[2019-02-16] MEDS: LEVETIRACETAM SOL (5 ML) 100 MG/ML UDC GT SCH ×2 (09:22→20:37)
[2019-02-16] MEDS: VIT A TP SCH ×2 (09:23→20:46)
[2019-02-16] MEDS: TRILEPTAL GT SCH ×2 (09:23→20:44)
[2019-02-16] MEDS: MULTIVIT W/MINERALS 1 TAB TABLET GT SCH (09:23)
[2019-02-16] MEDS: [UNRECOGNIZED DRUG - OTHER] TP SCH ×2 (09:23→20:46)
[2019-02-16] MEDS: CALCIUM CARBONATE 500 MG TAB.CHEW GT SCH ×2 (09:23→17:15)
[2019-02-16] MEDS: Z GUARD REMEDY 4 OZ OINT TP SCH ×2 (09:24→20:46)
[2019-02-16] MEDS: CLOTRIMAZOLE 1% 15 GM TUBE TP SCH ×4 (09:24→20:46)
[2019-02-16] MEDS: ZINC OXIDE 30 GM TUBE TP SCH ×4 (09:24→20:47)
[2019-02-16 10:50] LABS: APPEARANCE,URINE CLOUDY (CLEAR); BILIRUBIN,URINE NEGATIVE (NEGATIVE); BLOOD, URINE 2+ Ery/uL (NEGATIVE); COLOR,URINE YELLOW (YELLOW); KETONES,URINE NEGATIVE (NEGATIVE); LEUKOCYTE ESTERASE ,URINE 3+ (NEGATIVE); NITRITE, URINE NEGATIVE (NEGATIVE); PROTEIN,URINE 3+ mg/dl (NEGATIVE); UGLUCOSE NEGATIVE (NEGATIVE); UROBILINOGEN,URINE 0.2 EU/dL (0.2)
[2019-02-16 11:46] LABS: BACTERIA,URINE Many /HPF (None Seen); SQUAMOUS EPITHELIAL CELL,UR Many /HPF (None Seen); WBC,URINE TOO NUMEROUS TO COUN /HPF (0-3)
--- NOTE | 2019-02-16 12:30 | NUR ---
Called and left message to office of Chago Juárez regarding lab results Phosphorus - 5.3, Magnesium - 2.8.
[2019-02-16] MEDS: GLUCERNA 1.2 1,000 ML BOTTLE GT PRN (12:45)
--- NOTE | 2019-02-16 13:00 | NUR ---
Priya Molina (Neurologist) called back, relayed lab results, no new orders at this time.
--- NOTE | 2019-02-16 13:30 | NUR ---
Called office of Dr. Malave and spoke to guidance secretary and made her aware that additional lab results will be fax (fax # [phone]).
--- NOTE | 2019-02-16 16:05 | NUR ---
RT Pt received on ordered vent settings. Vent is plugged into red outlet w spare trach @ hob. Alarms are set and audible. No sob or respiratory distress noted at this time. Addendum: 02/16/19 at 1606 by MARCO FRANCOIS RT Amended: Links added.
[2019-02-16 19:54] VITALS: BP 122/61
[2019-02-16] MEDS: ASCORBIC ACID 500 MG TABLET GT SCH (20:46)
[2019-02-16] MEDS: INSULIN GLARGINE, 100 UNIT/ML CARTRIDGE SQ SCH (22:32)
[2019-02-17] MEDS: ALBUTEROL FS 2.5 MG/3 ML VIAL.NEB NEB SCH ×4 (01:44→19:56)
[2019-02-17] MEDS: METOCLOPRAMIDE HCL 10 MG/10 ML UDC GT SCH ×3 (05:23→21:12)
[2019-02-17] MEDS: DEXILANT 30 MG GT SCH (05:24)
[2019-02-17] MEDS: GABAPENTIN 300 MG CAPSULE GT SCH ×3 (05:25→21:12)
[2019-02-17] MEDS: BLOOD SUGAR DIAGNOSTIC 1 EACH STRIP IN SCH ×3 (05:35→17:18)
[2019-02-17] MEDS: GLUCERNA 1.2 1,000 ML BOTTLE GT PRN (06:34)
[2019-02-17 07:53] VITALS: BP 142/63
[2019-02-17] MEDS: HYDROGEN PEROXIDE 480 ML BOTTLE TP SCH ×2 (08:00→21:27)
[2019-02-17] MEDS: SIMETHICONE SUSP 40 MG/0.6 ML BOTTLE GT SCH ×2 (08:47→20:59)
[2019-02-17] MEDS: DOCUSATE SODIUM LIQ 100 MG/10 ML UDC GT SCH (09:06)
[2019-02-17] MEDS: LEVETIRACETAM SOL (5 ML) 100 MG/ML UDC GT SCH ×2 (09:06→21:08)
[2019-02-17] MEDS: FERROUS SULFATE - FOR SA ONLY 330 MG/7.5 ML UDC GT SCH ×2 (09:06→17:18)
[2019-02-17] MEDS: ACIDOPHILUS/BULGARICUS 1 EACH TAB.CHEW GT SCH ×2 (09:06→17:18)
[2019-02-17] MEDS: MULTIVIT W/MINERALS 1 TAB TABLET GT SCH (09:08)
[2019-02-17] MEDS: [UNRECOGNIZED DRUG - OTHER] TP SCH ×2 (09:08→21:10)
[2019-02-17] MEDS: VIT A TP SCH ×2 (09:08→21:10)
[2019-02-17] MEDS: CLOTRIMAZOLE 1% 15 GM TUBE TP SCH ×4 (09:08→21:10)
[2019-02-17] MEDS: TRILEPTAL GT SCH ×2 (09:08→21:14)
[2019-02-17] MEDS: Z GUARD REMEDY 4 OZ OINT TP SCH ×2 (09:08→21:10)
[2019-02-17] MEDS: CALCIUM CARBONATE 500 MG TAB.CHEW GT SCH ×2 (09:08→17:18)
[2019-02-17] MEDS: ZINC OXIDE 30 GM TUBE TP SCH ×4 (09:08→21:10)
[2019-02-17] MEDS: INSULIN REGULAR, HUMAN 100 UNIT/ML 3 ML VIAL SQ PRN ×2 (12:31→17:23)
[2019-02-17] MEDS: ASCORBIC ACID 500 MG TABLET GT SCH (21:15)
[2019-02-17] MEDS: INSULIN GLARGINE, 100 UNIT/ML CARTRIDGE SQ SCH (21:17)
[2019-02-17 21:39] VITALS: BP 117/72
[2019-02-18] MEDS: BLOOD SUGAR DIAGNOSTIC 1 EACH STRIP IN SCH ×5 (00:04→23:40)
[2019-02-18] MEDS: INSULIN REGULAR, HUMAN 100 UNIT/ML 3 ML VIAL SQ PRN ×5 (00:08→23:41)
[2019-02-18] MEDS: ALBUTEROL FS 2.5 MG/3 ML VIAL.NEB NEB SCH ×4 (01:59→19:39)
--- NOTE | 2019-02-18 03:53 | NUR ---
RT Pt trach remains on [facility] vent t/o the night. No resp distress noted. trach secure and patent. Addendum: 02/18/19 at 0354 by ASHLI QUEZADA RT Amended: Links added.
[2019-02-18] MEDS: GABAPENTIN 300 MG CAPSULE GT SCH ×3 (05:33→20:33)
[2019-02-18] MEDS: METOCLOPRAMIDE HCL 10 MG/10 ML UDC GT SCH ×3 (05:34→20:34)
[2019-02-18] MEDS: DEXILANT 30 MG GT SCH (05:37)
[2019-02-18] MEDS: GLUCERNA 1.2 1,000 ML BOTTLE GT PRN ×2 (05:49→20:37)
[2019-02-18 07:47] VITALS: BP 117/66
[2019-02-18] MEDS: SIMETHICONE SUSP 40 MG/0.6 ML BOTTLE GT SCH ×2 (08:00→20:33)
[2019-02-18] MEDS: FERROUS SULFATE - FOR SA ONLY 330 MG/7.5 ML UDC GT SCH ×2 (08:13→16:47)
[2019-02-18] MEDS: TRILEPTAL GT SCH ×2 (08:13→20:33)
[2019-02-18] MEDS: DOCUSATE SODIUM LIQ 100 MG/10 ML UDC GT SCH (08:13)
[2019-02-18] MEDS: LEVETIRACETAM SOL (5 ML) 100 MG/ML UDC GT SCH ×2 (08:13→20:33)
[2019-02-18] MEDS: MULTIVIT W/MINERALS 1 TAB TABLET GT SCH (08:13)
[2019-02-18] MEDS: ACIDOPHILUS/BULGARICUS 1 EACH TAB.CHEW GT SCH ×2 (08:13→16:47)
[2019-02-18] MEDS: CALCIUM CARBONATE 500 MG TAB.CHEW GT SCH ×2 (08:13→16:47)
[2019-02-18] MEDS: [UNRECOGNIZED DRUG - OTHER] TP SCH ×2 (09:00→20:34)
[2019-02-18] MEDS: VIT A TP SCH ×2 (09:00→20:34)
[2019-02-18] MEDS: Z GUARD REMEDY 4 OZ OINT TP SCH ×2 (09:00→20:34)
[2019-02-18] MEDS: CLOTRIMAZOLE 1% 15 GM TUBE TP SCH ×4 (09:00→20:34)
[2019-02-18] MEDS: HYDROGEN PEROXIDE 480 ML BOTTLE TP SCH ×2 (09:00→21:19)
[2019-02-18] MEDS: ZINC OXIDE 30 GM TUBE TP SCH ×4 (09:00→20:35)
--- NOTE | 2019-02-18 13:00 | NUR ---
Seen and examined by Dr. Naik, no new order given.
--- NOTE | 2019-02-18 18:08 | NUR ---
RT NOTE PT REMAINS MECHANICALLY VENTILATED VIA CUFFED TRACHEOSTOMY TUBE. CUFF INFLATED. TRACH TUBE MIDLINE AND SECURE. VENTILATOR SETTINGS PRESCRIBED. ALARMS SET PER PROTOCOL AND AUDIBLE. VENT PLUGGED IN TO RED OUTLET. AMBU BAG AT BED SIDE. NO DISTRESS NOTED. Addendum: 02/18/19 at 1810 by MAXI BRADY RT Amended: Links added.
[2019-02-18 19:49] VITALS: BP 106/69
[2019-02-18] MEDS: ASCORBIC ACID 500 MG TABLET GT SCH (20:34)
[2019-02-18] MEDS: INSULIN GLARGINE, 100 UNIT/ML CARTRIDGE SQ SCH (22:28)
--- NOTE | 2019-02-18 23:48 | NUR ---
RT NOTE PATIENT RECEIVED IN STABLE CONDITION. PATIENT TOLERATING CURRENT ORDERED SETTINGS. NO SIGNS OF RESPIRATORY DISTRESS NOTED. TRACH IS PATENT, MIDLINE AND SECURE. ALARMS ARE ON AND AUDIBLE. MECHANICAL VENT IS PLUGGED INTO RED OUTLET. EMERGENCY EQUIPMENT AT PATIENT BEDSIDE. Addendum: 02/18/19 at 2349 by FRANCO ALBARRAN RT Amended: Links added.
[2019-02-19] MEDS: ALBUTEROL FS 2.5 MG/3 ML VIAL.NEB NEB SCH ×4 (01:50→19:24)
[2019-02-19] MEDS: GABAPENTIN 300 MG CAPSULE GT SCH ×3 (05:38→20:22)
[2019-02-19] MEDS: INSULIN REGULAR, HUMAN 100 UNIT/ML 3 ML VIAL SQ PRN ×3 (05:38→17:46)
[2019-02-19] MEDS: BLOOD SUGAR DIAGNOSTIC 1 EACH STRIP IN SCH ×3 (05:38→17:39)
[2019-02-19] MEDS: DEXILANT 30 MG GT SCH (05:38)
[2019-02-19] MEDS: METOCLOPRAMIDE HCL 10 MG/10 ML UDC GT SCH ×3 (05:38→20:22)
--- NOTE | 2019-02-19 08:50 | NUR ---
Notified Dr. Luis of final urine culture result showing ESBL, and with VS as follows, T 100.4, HR 116, BP 90/72, 100%. also made aware of the latest CBC and BMP result collected on 02/16 with WBC 10.9. No new given at this time, he said he will come later today or tomorrow. Meanwhile cooling measures provided.
[2019-02-19] MEDS: LEVETIRACETAM SOL (5 ML) 100 MG/ML UDC GT SCH ×2 (08:56→20:22)
[2019-02-19] MEDS: FERROUS SULFATE - FOR SA ONLY 330 MG/7.5 ML UDC GT SCH ×2 (08:56→16:35)
[2019-02-19] MEDS: TRILEPTAL GT SCH ×2 (08:56→20:22)
[2019-02-19] MEDS: DOCUSATE SODIUM LIQ 100 MG/10 ML UDC GT SCH (08:56)
[2019-02-19] MEDS: SIMETHICONE SUSP 40 MG/0.6 ML BOTTLE GT SCH ×2 (08:56→20:22)
[2019-02-19] MEDS: ACIDOPHILUS/BULGARICUS 1 EACH TAB.CHEW GT SCH ×2 (08:56→16:35)
[2019-02-19] MEDS: ZINC OXIDE 30 GM TUBE TP SCH ×4 (09:00→20:23)
[2019-02-19] MEDS: HYDROGEN PEROXIDE 480 ML BOTTLE TP SCH ×2 (09:00→19:25)
[2019-02-19] MEDS: Z GUARD REMEDY 4 OZ OINT TP SCH ×2 (09:00→20:22)
[2019-02-19] MEDS: CLOTRIMAZOLE 1% 15 GM TUBE TP SCH ×4 (09:00→20:22)
[2019-02-19] MEDS: VIT A TP SCH ×2 (09:01→20:22)
[2019-02-19] MEDS: [UNRECOGNIZED DRUG - OTHER] TP SCH ×2 (09:01→20:22)
[2019-02-19] MEDS: MULTIVIT W/MINERALS 1 TAB TABLET GT SCH (09:01)
[2019-02-19] MEDS: CALCIUM CARBONATE 500 MG TAB.CHEW GT SCH ×2 (09:01→16:35)
[2019-02-19 11:45] VITALS: BP 90/72
[2019-02-19 12:00] VITALS: BP 141/58
[2019-02-19 16:51] VITALS: BP 100/71
[2019-02-19] MEDS: GLUCERNA 1.2 1,000 ML BOTTLE GT PRN (17:39)
[2019-02-19] MEDS: ACETAMINOPHEN 650 MG/20 ML UDC- SA PATIENTS-PAIN ONLY GT PRN (18:00)
--- NOTE | 2019-02-19 19:25 | NUR ---
RT NOTE: RECEIVED TRACH PT ON [facility] VENT ON NOTED SETTINGS PER MD ORDERS. TRACH IS PATENT AND SECURED. TRACH CARE DONE. CHASSIS MECHANIC DONE. Q6 BREATHING TX GIVEN WITH NO ADVERSE REACTION NOTED. SX DONE PRN. VENT PLUGGED INTO RED OUTLET. ALARMS ON AND AUDIBLE. KATHARINEU BAG @ BEDSIDE. NO RESP DISTRESS AT THIS TIME. WILL CONT TO MONITOR PT. Addendum: 02/19/19 at 2025 by QIANA MARY RT Amended: Links added.
[2019-02-19 20:00] VITALS: BP 95/60
[2019-02-19] MEDS: ASCORBIC ACID 500 MG TABLET GT SCH (20:22)
[2019-02-19] MEDS: INSULIN GLARGINE, 100 UNIT/ML CARTRIDGE SQ SCH (22:00)
[2019-02-20] MEDS: BLOOD SUGAR DIAGNOSTIC 1 EACH STRIP IN SCH ×4 (00:28→18:15)
[2019-02-20] MEDS: INSULIN REGULAR, HUMAN 100 UNIT/ML 3 ML VIAL SQ PRN ×4 (00:30→18:21)
[2019-02-20] MEDS: ALBUTEROL FS 2.5 MG/3 ML VIAL.NEB NEB SCH ×4 (01:26→19:25)
[2019-02-20] MEDS: METOCLOPRAMIDE HCL 10 MG/10 ML UDC GT SCH ×3 (05:20→20:24)
[2019-02-20] MEDS: GABAPENTIN 300 MG CAPSULE GT SCH ×3 (05:20→20:29)
[2019-02-20] MEDS: DEXILANT 30 MG GT SCH (05:20)
[2019-02-20 07:47] VITALS: BP 125/66
[2019-02-20] MEDS: SIMETHICONE SUSP 40 MG/0.6 ML BOTTLE GT SCH ×2 (08:00→20:30)
[2019-02-20] MEDS: HYDROGEN PEROXIDE 480 ML BOTTLE TP SCH ×2 (08:14→19:25)
[2019-02-20] MEDS: Z GUARD REMEDY 4 OZ OINT TP SCH ×2 (09:25→20:26)
[2019-02-20] MEDS: ZINC OXIDE 30 GM TUBE TP SCH ×4 (09:25→20:26)
[2019-02-20] MEDS: [UNRECOGNIZED DRUG - OTHER] TP SCH ×2 (09:25→20:25)
[2019-02-20] MEDS: FERROUS SULFATE - FOR SA ONLY 330 MG/7.5 ML UDC GT SCH ×2 (09:25→17:00)
[2019-02-20] MEDS: LEVETIRACETAM SOL (5 ML) 100 MG/ML UDC GT SCH ×2 (09:25→20:27)
[2019-02-20] MEDS: DOCUSATE SODIUM LIQ 100 MG/10 ML UDC GT SCH (09:25)
[2019-02-20] MEDS: CALCIUM CARBONATE 500 MG TAB.CHEW GT SCH ×2 (09:25→17:00)
[2019-02-20] MEDS: CLOTRIMAZOLE 1% 15 GM TUBE TP SCH ×4 (09:25→20:26)
[2019-02-20] MEDS: TRILEPTAL GT SCH ×2 (09:25→20:25)
[2019-02-20] MEDS: VIT A TP SCH ×2 (09:25→20:25)
[2019-02-20] MEDS: ACIDOPHILUS/BULGARICUS 1 EACH TAB.CHEW GT SCH ×2 (09:25→17:00)
[2019-02-20] MEDS: MULTIVIT W/MINERALS 1 TAB TABLET GT SCH (09:25)
--- NOTE | 2019-02-20 13:36 | NUR ---
Seen and examined by Dr. Luis, aware of the final urine culture result showing ESBL. He said to ask SELLING SPECIALIST Gertrude Calhoun if she wants to treat UTI. Resident afebrile at 99.4.
[2019-02-20] MEDS: GLUCERNA 1.2 1,000 ML BOTTLE GT PRN (18:15)
--- NOTE | 2019-02-20 18:25 | NUR ---
SOFTWARE FIRMWARE ENGINEER Gertrude Calhoun notified of urine culture result, positive for ESBL, new order given to give IV Amikacin x 2 weeks and OK to insert midline due to poor venous access. Resident's sister Beckie notified of new order and insertion of midline. She said, she is OK to place the midline in either arms but prefers to have it in the R arm as patient tends to move L arm. Nursing diamond finishing supervisor informed of midline insertion.
--- NOTE | 2019-02-20 19:00 | NUR ---
Called Dariana, according to tech, IV pharmacist on break but will call back for dosing and will notify if Amikacin si covered or not. Received a call from PICC line nurse, said that he will be in at 2300 to insert midline. Endorsed to incoming shift.
--- NOTE | 2019-02-20 19:25 | NUR ---
RT NOTE: RECEIVED TRACH PT ON [facility] VENT ON NOTED SETTINGS PER MD ORDERS. TRACH IS PATENT AND SECURED. TRACH CARE DONE. FLEECER DONE. Q6 BREATHING TX GIVEN WITH NO ADVERSE REACTION NOTED. SX DONE PRN. VENT PLUGGED INTO RED OUTLET. ALARMS ON AND AUDIBLE. KATHARINEU BAG @ BEDSIDE. NO RESP DISTRESS AT THIS TIME. WILL CONT TO MONITOR PT. Addendum: 02/20/19 at 2211 by QIANA MARY RT Amended: Links added.
[2019-02-20] MEDS: ACETAMINOPHEN 650 MG/20 ML UDC- SA PATIENTS-PAIN ONLY GT PRN (19:46)
--- NOTE | 2019-02-20 20:00 | NUR ---
RN NOTES Received new order from Gertrude to start Amikacin 350mg IV Q24hr, trough before 3rd dose + BUN/CR serum, to start once midline is inserted and available.
[2019-02-20] MEDS: ASCORBIC ACID 500 MG TABLET GT SCH (20:25)
[2019-02-20 20:26] VITALS: BP 123/65
[2019-02-20] MEDS: INSULIN GLARGINE, 100 UNIT/ML CARTRIDGE SQ SCH (22:26)
--- NOTE | 2019-02-20 23:00 | NUR ---
SUBACUTE RN NOTE: PATIENT BLOOD SUGAR LEVEL 160MG/DL, TO RECEIVE LANTUS 16UNIT PER MD ORDER AND 2 UNITS OF INSULIN PER SLIDING SCALE. NO S/S OF HYPER/HYPOGLYCEMIA NOTED. WILL CONTINUE TO MONITOR.
[2019-02-21] MEDS: BLOOD SUGAR DIAGNOSTIC 1 EACH STRIP IN SCH ×5 (00:45→23:36)
[2019-02-21] MEDS: INSULIN REGULAR, HUMAN 100 UNIT/ML 3 ML VIAL SQ PRN ×4 (00:46→23:39)
--- NOTE | 2019-02-21 01:45 | NUR ---
SUBACUTE RN NOTE: MIDLINE PLACE TO RIGHT UPPER ARM WITHOUT COMPLICATIONS. IV ANTIBIOTICS TO BE GIVEN PER MD ORDER. WILL CONTINUE TO MONITOR.
[2019-02-21] MEDS: ALBUTEROL FS 2.5 MG/3 ML VIAL.NEB NEB SCH ×4 (01:57→20:27)
[2019-02-21] MEDS: METOCLOPRAMIDE HCL 10 MG/10 ML UDC GT SCH ×3 (05:18→20:08)
[2019-02-21] MEDS: DEXILANT 30 MG GT SCH (05:18)
[2019-02-21] MEDS: GABAPENTIN 300 MG CAPSULE GT SCH ×3 (05:19→20:08)
--- NOTE | 2019-02-21 07:00 | NUR ---
SUBACUTE RN NOTE: PATIENT BLOOD SUGAR LEVEL 120MG/DL, NO INSULIN NEEDED PER SLIDING SCALE. NO S/S OF HYPER/HYPOGLYCEMIA NOTED. WILL CONTINUE TO MONITOR.
[2019-02-21 07:38] VITALS: BP 99/57
[2019-02-21] MEDS: HYDROGEN PEROXIDE 480 ML BOTTLE TP SCH ×2 (08:17→21:00)
[2019-02-21] MEDS: MULTIVIT W/MINERALS 1 TAB TABLET GT SCH (08:58)
[2019-02-21] MEDS: SIMETHICONE SUSP 40 MG/0.6 ML BOTTLE GT SCH ×2 (08:58→20:08)
[2019-02-21] MEDS: FERROUS SULFATE - FOR SA ONLY 330 MG/7.5 ML UDC GT SCH ×2 (08:58→17:00)
[2019-02-21] MEDS: VIT A TP SCH ×2 (08:58→20:08)
[2019-02-21] MEDS: ACIDOPHILUS/BULGARICUS 1 EACH TAB.CHEW GT SCH ×2 (08:58→17:00)
[2019-02-21] MEDS: TRILEPTAL GT SCH ×2 (08:58→20:08)
[2019-02-21] MEDS: [UNRECOGNIZED DRUG - OTHER] TP SCH ×2 (08:58→20:08)
[2019-02-21] MEDS: DOCUSATE SODIUM LIQ 100 MG/10 ML UDC GT SCH (08:58)
[2019-02-21] MEDS: LEVETIRACETAM SOL (5 ML) 100 MG/ML UDC GT SCH ×2 (08:58→20:08)
[2019-02-21] MEDS: CALCIUM CARBONATE 500 MG TAB.CHEW GT SCH ×2 (08:58→17:00)
[2019-02-21] MEDS: ZINC OXIDE 30 GM TUBE TP SCH ×4 (08:59→20:09)
[2019-02-21] MEDS: CLOTRIMAZOLE 1% 15 GM TUBE TP SCH ×4 (08:59→20:09)
[2019-02-21] MEDS: Z GUARD REMEDY 4 OZ OINT TP SCH ×2 (08:59→20:09)
--- NOTE | 2019-02-21 10:47 | NUR ---
Resident on Amikacin 350 mg IV q 24 hours x 14 days for ESBL of urine. Spoke with Gertrude Calhoun NP regarding the 5 days protocol for ATB orders, she said to continue Amikacin for 14 days. Birdie (Pharmacist) informed.
[2019-02-21] MEDS: GLUCERNA 1.2 1,000 ML BOTTLE GT PRN (15:18)
--- NOTE | 2019-02-21 15:39 | NUR ---
STEPHEN completed SS portion on MDS. The patients responsible democrat is her sister, Beckie Chu [phone] who is very involved and supportive. The patient is alert, non-communicative, on ventilator support and trach. The patient had their annual dental cleaning by Dr. Elliott on 02/02/19. The patient had their annual optometry appointment on 06/18/18. The patient was seen by broadcast systems engineer, Dr. Booker on 02/18/19.
--- NOTE | 2019-02-21 17:04 | NUR ---
RT Pt received trach'd and on vent w ordered settings. Vent is plugged into red outlet w spare trach @ hob. Alarms are set and audible. Trach care done. Pt is stable. No sob or respiratory distress noted through out shift. Will continue to monitor. Addendum: 02/21/19 at 1726 by JULIETH REY RT Amended: Links added.
--- NOTE | 2019-02-21 19:00 | NUR ---
Seen and examined by Anna Vargas NP no new order given.
--- NOTE | 2019-02-21 19:15 | NUR ---
Seen and examined by NAN Loredo no new order given. Resident afebrile the whole shift, v/s stable. No hematuria noted. No s/s of pain/ discomfort. Trach secured and midline, on mechanical vent tolerating well, no signs of resp. distress. GT intact and patent, GT feeding tolerated well. F/C intact and patent draining light yellow urine. Midline on right upper arm, intact and patent. Will continue to monitor.
[2019-02-21 19:42] VITALS: BP 109/59
[2019-02-21] MEDS: ASCORBIC ACID 500 MG TABLET GT SCH (20:08)
[2019-02-21] MEDS: INSULIN GLARGINE, 100 UNIT/ML CARTRIDGE SQ SCH (21:21)
[2019-02-22] MEDS: ALBUTEROL FS 2.5 MG/3 ML VIAL.NEB NEB SCH ×4 (00:39→19:33)
[2019-02-22] MEDS: AMIKACIN 350 MG in IV D5W 100 ML IV SCH (01:04)
--- NOTE | 2019-02-22 03:48 | NUR ---
PT RCVD FAUSTO'D ON MECHANICAL VENT WITH CHARTED SETTINGS. SX DONE. PT FAUSTO IS PATENT AND SECURE. VENT PLUGGED INTO RED OUTLET. ALARMS ARE ON AND AUDIBLE. AMBU BAG AT BEDSIDE. Addendum: 02/22/19 at 0350 by MICH AVILA RT Amended: Links added.
[2019-02-22] MEDS: DEXILANT 30 MG GT SCH (05:10)
[2019-02-22] MEDS: METOCLOPRAMIDE HCL 10 MG/10 ML UDC GT SCH ×3 (05:10→20:14)
[2019-02-22] MEDS: GABAPENTIN 300 MG CAPSULE GT SCH ×3 (05:10→20:14)
[2019-02-22] MEDS: BLOOD SUGAR DIAGNOSTIC 1 EACH STRIP IN SCH ×4 (05:18→23:18)
[2019-02-22 07:23] VITALS: BP 114/70
[2019-02-22] MEDS: GLUCERNA 1.2 1,000 ML BOTTLE GT PRN (07:37)
--- NOTE | 2019-02-22 08:39 | NUR ---
RT PT REC'D TRACH'D ON MECHANICAL VENT WITH CHARTED SETTINGS. NO SOB NOTED AT THIS TIME. PT TRACH IS PATENT AND SECURE. VENT PLUGGED INTO RED OUTLET. ALARMS ARE ON AND AUDIBLE. AMBU BAG AT BEDSIDE. Addendum: 02/22/19 at 0840 by MARCO FRANCOIS RT Amended: Links added.
[2019-02-22] MEDS: TRILEPTAL GT SCH ×2 (08:51→20:14)
[2019-02-22] MEDS: LEVETIRACETAM SOL (5 ML) 100 MG/ML UDC GT SCH ×2 (08:51→20:14)
[2019-02-22] MEDS: SIMETHICONE SUSP 40 MG/0.6 ML BOTTLE GT SCH ×2 (08:51→20:14)
[2019-02-22] MEDS: ACIDOPHILUS/BULGARICUS 1 EACH TAB.CHEW GT SCH ×2 (08:51→16:23)
[2019-02-22] MEDS: DOCUSATE SODIUM LIQ 100 MG/10 ML UDC GT SCH (08:51)
[2019-02-22] MEDS: MULTIVIT W/MINERALS 1 TAB TABLET GT SCH (08:51)
[2019-02-22] MEDS: FERROUS SULFATE - FOR SA ONLY 330 MG/7.5 ML UDC GT SCH ×2 (08:51→16:23)
[2019-02-22] MEDS: CALCIUM CARBONATE 500 MG TAB.CHEW GT SCH ×2 (08:51→16:23)
[2019-02-22] MEDS: VIT A TP SCH ×2 (09:00→20:15)
[2019-02-22] MEDS: [UNRECOGNIZED DRUG - OTHER] TP SCH ×2 (09:00→20:15)
[2019-02-22] MEDS: Z GUARD REMEDY 4 OZ OINT TP SCH ×2 (09:00→20:15)
[2019-02-22] MEDS: HYDROGEN PEROXIDE 480 ML BOTTLE TP SCH ×2 (09:00→21:56)
[2019-02-22] MEDS: CLOTRIMAZOLE 1% 15 GM TUBE TP SCH ×4 (09:00→20:15)
[2019-02-22] MEDS: ZINC OXIDE 30 GM TUBE TP SCH ×4 (09:00→20:15)
[2019-02-22] MEDS: INSULIN REGULAR, HUMAN 100 UNIT/ML 3 ML VIAL SQ PRN ×3 (11:32→23:18)
[2019-02-22] MEDS ORDERED: DOSING PER PHARMACY-AMIKACI IV XX PRN (14:30)
[2019-02-22] MEDS: ASCORBIC ACID 500 MG TABLET GT SCH (20:14)
[2019-02-22] MEDS: POVIDONE-IODINE OINT 28.4 GM TUBE TP SCH (20:15)
[2019-02-22 20:56] VITALS: BP 147/60
[2019-02-22] MEDS: INSULIN GLARGINE, 100 UNIT/ML CARTRIDGE SQ SCH (21:45)
[2019-02-23] MEDS: AMIKACIN 350 MG in IV D5W 100 ML IV SCH (01:00)
[2019-02-23 01:03] LABS: CREATININE 2.6 mg/dL (0.6-1.3)
[2019-02-23] MEDS: ALBUTEROL FS 2.5 MG/3 ML VIAL.NEB NEB SCH ×4 (01:43→19:22)
--- NOTE | 2019-02-23 03:30 | NUR ---
RN NOTES Received call from lab regarding Amikacin critical level of 7.1, medication held per protocol.
[2019-02-23] MEDS: METOCLOPRAMIDE HCL 10 MG/10 ML UDC GT SCH ×3 (05:00→20:02)
[2019-02-23] MEDS: DEXILANT 30 MG GT SCH (05:00)
[2019-02-23] MEDS: GABAPENTIN 300 MG CAPSULE GT SCH ×3 (05:00→20:02)
[2019-02-23] MEDS: BLOOD SUGAR DIAGNOSTIC 1 EACH STRIP IN SCH ×4 (05:57→23:10)
[2019-02-23] MEDS: INSULIN REGULAR, HUMAN 100 UNIT/ML 3 ML VIAL SQ PRN ×4 (05:57→23:11)
[2019-02-23 07:32] VITALS: BP 133/75
[2019-02-23] MEDS: HYDROGEN PEROXIDE 480 ML BOTTLE TP SCH ×2 (08:21→19:22)
[2019-02-23] MEDS: LEVETIRACETAM SOL (5 ML) 100 MG/ML UDC GT SCH ×2 (08:52→20:02)
[2019-02-23] MEDS: ACIDOPHILUS/BULGARICUS 1 EACH TAB.CHEW GT SCH ×2 (08:52→17:54)
[2019-02-23] MEDS: SIMETHICONE SUSP 40 MG/0.6 ML BOTTLE GT SCH ×2 (08:52→20:02)
[2019-02-23] MEDS: MULTIVIT W/MINERALS 1 TAB TABLET GT SCH (08:52)
[2019-02-23] MEDS: TRILEPTAL GT SCH ×2 (08:52→20:02)
[2019-02-23] MEDS: FERROUS SULFATE - FOR SA ONLY 330 MG/7.5 ML UDC GT SCH ×2 (08:52→17:54)
[2019-02-23] MEDS: CALCIUM CARBONATE 500 MG TAB.CHEW GT SCH ×2 (08:52→17:54)
[2019-02-23] MEDS: DOCUSATE SODIUM LIQ 100 MG/10 ML UDC GT SCH (08:52)
[2019-02-23] MEDS: VIT A TP SCH ×2 (08:53→20:02)
[2019-02-23] MEDS: CLOTRIMAZOLE 1% 15 GM TUBE TP SCH ×4 (08:53→20:03)
[2019-02-23] MEDS: ZINC OXIDE 30 GM TUBE TP SCH ×4 (08:53→20:03)
[2019-02-23] MEDS: POVIDONE-IODINE OINT 28.4 GM TUBE TP SCH ×2 (08:53→20:02)
[2019-02-23] MEDS: [UNRECOGNIZED DRUG - OTHER] TP SCH ×2 (08:53→20:02)
[2019-02-23] MEDS: Z GUARD REMEDY 4 OZ OINT TP SCH ×2 (08:53→20:03)
--- NOTE | 2019-02-23 14:50 | NUR ---
Spoke with Melissa from [facility] pharmacy, IV department regarding Amikacin level. New recommendation to hold Amikacin, random level with BUN and Creat tomorrow.
[2019-02-23] MEDS ORDERED: AMIKACIN 350 MG in IV D5W 100 ML IV SCH (15:00)
--- NOTE | 2019-02-23 19:22 | NUR ---
RT NOTE: RECEIVED TRACH PT ON [facility] VENT ON NOTED SETTINGS PER MD ORDERS. TRACH IS PATENT AND SECURED. TRACH CARE DONE. VIDEO PRODUCER DONE. Q6 BREATHING TX GIVEN WITH NO ADVERSE REACTION NOTED. SX DONE PRN. VENT PLUGGED INTO RED OUTLET. ALARMS ON AND AUDIBLE. KATHARINEU BAG @ BEDSIDE. NO RESP DISTRESS AT THIS TIME. WILL CONT TO MONITOR PT. Addendum: 02/24/19 at 0255 by QIANA MARY RT Amended: Links added.
[2019-02-23 19:44] VITALS: BP 131/62
[2019-02-23] MEDS: ASCORBIC ACID 500 MG TABLET GT SCH (20:02)
[2019-02-23] MEDS: INSULIN GLARGINE, 100 UNIT/ML CARTRIDGE SQ SCH (21:40)
[2019-02-24] MEDS: ALBUTEROL FS 2.5 MG/3 ML VIAL.NEB NEB SCH ×4 (01:19→19:43)
[2019-02-24] MEDS: DEXILANT 30 MG GT SCH (05:01)
[2019-02-24] MEDS: GABAPENTIN 300 MG CAPSULE GT SCH ×3 (05:01→20:09)
[2019-02-24] MEDS: METOCLOPRAMIDE HCL 10 MG/10 ML UDC GT SCH ×3 (05:01→20:10)
[2019-02-24] MEDS: INSULIN REGULAR, HUMAN 100 UNIT/ML 3 ML VIAL SQ PRN ×4 (05:50→23:18)
[2019-02-24] MEDS: BLOOD SUGAR DIAGNOSTIC 1 EACH STRIP IN SCH ×4 (05:50→23:16)
[2019-02-24 06:30] LABS: CREATININE 2.5 mg/dL (0.6-1.3)
[2019-02-24] MEDS: HYDROGEN PEROXIDE 480 ML BOTTLE TP SCH ×2 (07:10→20:11)
[2019-02-24 07:44] VITALS: BP 141/72
[2019-02-24] MEDS: CALCIUM CARBONATE 500 MG TAB.CHEW GT SCH ×2 (08:34→16:46)
[2019-02-24] MEDS: TRILEPTAL GT SCH ×2 (08:34→20:10)
[2019-02-24] MEDS: ACIDOPHILUS/BULGARICUS 1 EACH TAB.CHEW GT SCH ×2 (08:34→16:46)
[2019-02-24] MEDS: MULTIVIT W/MINERALS 1 TAB TABLET GT SCH (08:34)
[2019-02-24] MEDS: FERROUS SULFATE - FOR SA ONLY 330 MG/7.5 ML UDC GT SCH ×2 (08:34→16:46)
[2019-02-24] MEDS: LEVETIRACETAM SOL (5 ML) 100 MG/ML UDC GT SCH ×2 (08:34→20:09)
[2019-02-24] MEDS: SIMETHICONE SUSP 40 MG/0.6 ML BOTTLE GT SCH ×2 (08:34→20:09)
[2019-02-24] MEDS: DOCUSATE SODIUM LIQ 100 MG/10 ML UDC GT SCH (08:34)
[2019-02-24] MEDS: CLOTRIMAZOLE 1% 15 GM TUBE TP SCH ×4 (09:00→20:11)
[2019-02-24] MEDS: Z GUARD REMEDY 4 OZ OINT TP SCH ×2 (09:00→20:11)
[2019-02-24] MEDS: VIT A TP SCH ×2 (09:00→20:11)
[2019-02-24] MEDS: [UNRECOGNIZED DRUG - OTHER] TP SCH ×2 (09:00→20:11)
[2019-02-24] MEDS: ZINC OXIDE 30 GM TUBE TP SCH ×4 (09:00→20:11)
[2019-02-24] MEDS: POVIDONE-IODINE OINT 28.4 GM TUBE TP SCH ×2 (09:00→20:12)
--- NOTE | 2019-02-24 16:38 | NUR ---
RT NOTE: RECEIVED PT ON ORDERED NOTED VENT SETTINGS. NO RESPIRATORY DISTRESS NOTED. TRACH CHECKED SECURE AND PATENT. SXD AND LAVAGED Q ROUND AND NEEDED. TXS GIVEN ORDERED WITH NO ADVERSE REACTIONS NOTED. TRACH CARE DONE. SPARE TRACH AND AMBU BAG @ BEDSIDE. ALARMS CHECKED. VENT PLUGGED INTO RED OUTLET.
[2019-02-24] MEDS: GLUCERNA 1.2 1,000 ML BOTTLE GT PRN (19:00)
[2019-02-24 19:53] VITALS: BP 100/61
[2019-02-24 20:00] VITALS: BP 100/61
[2019-02-24] MEDS: AMIKACIN 350 MG in IV D5W 100 ML IV SCH (20:09)
[2019-02-24] MEDS: ASCORBIC ACID 500 MG TABLET GT SCH (20:10)
--- NOTE | 2019-02-24 20:34 | NUR ---
PT RCVD TRACH'D ON MECHANICAL VENT WITH CHARTED SETTINGS. PT APRIL TX WELL. SX DONE. PT TRACH IS PATENT AND SECURE. VENT PLUGGED INTO RED OUTLET. ALARMS ARE ON AND AUDIBLE. AMBU BAG AT BEDSIDE. Addendum: 02/24/19 at 2034 by MICH AVILA RT Amended: Links added.
[2019-02-24] MEDS: INSULIN GLARGINE, 100 UNIT/ML CARTRIDGE SQ SCH (22:00)
[2019-02-25] MEDS: ALBUTEROL FS 2.5 MG/3 ML VIAL.NEB NEB SCH ×4 (00:46→19:47)
[2019-02-25] MEDS: METOCLOPRAMIDE HCL 10 MG/10 ML UDC GT SCH ×2 (04:24→12:29)
[2019-02-25] MEDS: GABAPENTIN 300 MG CAPSULE GT SCH ×2 (04:24→12:29)
[2019-02-25] MEDS: DEXILANT 30 MG GT SCH (05:36)
[2019-02-25] MEDS: BLOOD SUGAR DIAGNOSTIC 1 EACH STRIP IN SCH ×4 (05:37→23:46)
[2019-02-25] MEDS: INSULIN REGULAR, HUMAN 100 UNIT/ML 3 ML VIAL SQ PRN ×4 (05:37→23:46)
[2019-02-25 07:33] VITALS: BP 112/58
[2019-02-25] MEDS: HYDROGEN PEROXIDE 480 ML BOTTLE TP SCH ×2 (07:35→20:35)
[2019-02-25] MEDS: DOCUSATE SODIUM LIQ 100 MG/10 ML UDC GT SCH (08:49)
[2019-02-25] MEDS: SIMETHICONE SUSP 40 MG/0.6 ML BOTTLE GT SCH ×2 (08:49→20:44)
[2019-02-25] MEDS: ACIDOPHILUS/BULGARICUS 1 EACH TAB.CHEW GT SCH ×2 (08:49→16:15)
[2019-02-25] MEDS: LEVETIRACETAM SOL (5 ML) 100 MG/ML UDC GT SCH ×2 (08:49→20:44)
[2019-02-25] MEDS: TRILEPTAL GT SCH ×2 (08:49→20:45)
[2019-02-25] MEDS: MULTIVIT W/MINERALS 1 TAB TABLET GT SCH (08:49)
[2019-02-25] MEDS: FERROUS SULFATE - FOR SA ONLY 330 MG/7.5 ML UDC GT SCH ×2 (08:49→16:15)
[2019-02-25] MEDS: CALCIUM CARBONATE 500 MG TAB.CHEW GT SCH ×2 (08:49→16:15)
[2019-02-25] MEDS: VIT A TP SCH ×2 (09:00→20:45)
[2019-02-25] MEDS: ZINC OXIDE 30 GM TUBE TP SCH ×2 (09:00→20:45)
[2019-02-25] MEDS: CLOTRIMAZOLE 1% 15 GM TUBE TP SCH ×2 (09:00→20:45)
[2019-02-25] MEDS: [UNRECOGNIZED DRUG - OTHER] TP SCH ×2 (09:00→20:45)
[2019-02-25] MEDS: Z GUARD REMEDY 4 OZ OINT TP SCH ×2 (09:00→20:45)
[2019-02-25] MEDS: POVIDONE-IODINE OINT 28.4 GM TUBE TP SCH ×2 (09:00→20:45)
--- NOTE | 2019-02-25 11:25 | NUR ---
Resident was seen and examined by Dr. Luis, with no new orders, doctor made aware resident continues on isolation due to esbl in the urine, all precautions taken, continues to be on amikacin iv x 2 wks, no adverse reaction noted, noted on the sacral area excoriation no new treatment, will continue using zguard and mepilex, resident reposition every 2 hours, and good pericare rendered.
--- NOTE | 2019-02-25 15:35 | NUR ---
MAKING ROUND WHEN I NOTICED RESIDENT CONSTANTLY MOVING BILATERAL ARMS, CHARGE NURSE MADE AWARE, CHARGE NURSE GOT A NEW ORDER PER DR. LEWIS 1. ATIVAN 1MG IVP Q 6HOURS PRN FOR CONSTANTLY MOVING ARMS, ORDER CARRIED OUT AND RESPONSIBLE REPUBLICAN MADE AWARE (KELVIN), MEDICATION WAS GIVEN ON RIGHT ARM MIDLINE, MIDLINE PATENT. @1635 REASSESS RESIDENT, MEDICATION WAS EFFECTIVE, RESIDENT SLEEPING NO SIGNS OF MOVING ARMS.
[2019-02-25] MEDS: GLUCERNA 1.2 1,000 ML BOTTLE GT PRN (15:52)
[2019-02-25] MEDS ORDERED: LORAZEPAM INJ 2 MG/ML VIAL IVP PRN (16:00)
--- NOTE | 2019-02-25 18:17 | NUR ---
RT NOTE PATIENT IS ON MECHANICAL VENTILATION, NO SOB NOTED, TRACH IS PATEN AND SECURED, TRACH CARE DONE, SX MODERATE AMOUNT OF SECRETIONS. VENT PLUGGED TO THE RED OUTLET, EXTRA TRACH AT BEDSIDE, AMBU BAG AT BEDSIDE. NO ADVERSE REACTIONS BREATHING TXS. Addendum: 02/25/19 at 1822 by DAVE HICKMAN RT Amended: Links added.
[2019-02-25] MEDS: ACETAMINOPHEN 650 MG/20 ML UDC- SA PATIENTS-FEVER ONLY GT PRN (19:40)
[2019-02-25 20:10] VITALS: BP 122/61
--- NOTE | 2019-02-25 20:39 | NUR ---
PT RCVD TRACH'D ON MECHANICAL VENT WITH CHARTED SETTINGS. PT APRIL TX WELL. SX DONE. PT TRACH IS PATENT AND SECURE. VENT PLUGGED INTO RED OUTLET. ALARMS ARE ON AND AUDIBLE. AMBU BAG AT BEDSIDE. Addendum: 02/25/19 at 2039 by MICH AVILA RT Amended: Links added.
[2019-02-25] MEDS: GABAPENTIN 250 MG/5 ML SOLUTION GT SCH (20:44)
[2019-02-25] MEDS: METOCLOPRAMIDE HCL 10 MG TABLET GT SCH (20:45)
[2019-02-25] MEDS: ASCORBIC ACID 500 MG TABLET GT SCH (20:45)
[2019-02-25] MEDS: INSULIN GLARGINE, 100 UNIT/ML CARTRIDGE SQ SCH (21:08)
[2019-02-26] MEDS: ALBUTEROL FS 2.5 MG/3 ML VIAL.NEB NEB SCH ×4 (00:34→19:38)
[2019-02-26] MEDS: GABAPENTIN 250 MG/5 ML SOLUTION GT SCH ×3 (05:00→20:06)
[2019-02-26] MEDS: DEXILANT 30 MG GT SCH (05:00)
[2019-02-26] MEDS: METOCLOPRAMIDE HCL 10 MG TABLET GT SCH ×3 (05:00→20:07)
[2019-02-26] MEDS: BLOOD SUGAR DIAGNOSTIC 1 EACH STRIP IN SCH ×4 (05:32→23:27)
[2019-02-26] MEDS: INSULIN REGULAR, HUMAN 100 UNIT/ML 3 ML VIAL SQ PRN ×4 (05:32→23:28)
[2019-02-26] MEDS: HYDROGEN PEROXIDE 480 ML BOTTLE TP PRN (07:28)
[2019-02-26 07:56] VITALS: BP 162/95
[2019-02-26] MEDS: AMIKACIN 350 MG in IV D5W 100 ML IV SCH (08:18)
[2019-02-26] MEDS: SIMETHICONE SUSP 40 MG/0.6 ML BOTTLE GT SCH ×2 (08:59→20:06)
[2019-02-26] MEDS: DOCUSATE SODIUM LIQ 100 MG/10 ML UDC GT SCH (08:59)
[2019-02-26] MEDS: POVIDONE-IODINE OINT 28.4 GM TUBE TP SCH ×2 (09:00→20:07)
[2019-02-26] MEDS: FERROUS SULFATE - FOR SA ONLY 330 MG/7.5 ML UDC GT SCH ×2 (09:00→17:27)
[2019-02-26] MEDS: ZINC OXIDE 30 GM TUBE TP SCH ×2 (09:00→20:08)
[2019-02-26] MEDS: CLOTRIMAZOLE 1% 15 GM TUBE TP SCH ×2 (09:00→20:08)
[2019-02-26] MEDS: [UNRECOGNIZED DRUG - OTHER] TP SCH ×2 (09:00→20:07)
[2019-02-26] MEDS: VIT A TP SCH ×2 (09:00→20:07)
[2019-02-26] MEDS: Z GUARD REMEDY 4 OZ OINT TP SCH ×2 (09:00→20:08)
[2019-02-26] MEDS: ACIDOPHILUS/BULGARICUS 1 EACH TAB.CHEW GT SCH ×2 (09:01→17:27)
[2019-02-26] MEDS: LEVETIRACETAM SOL (5 ML) 100 MG/ML UDC GT SCH ×2 (09:01→20:06)
[2019-02-26] MEDS: TRILEPTAL GT SCH ×2 (09:01→20:06)
[2019-02-26] MEDS: MULTIVIT W/MINERALS 1 TAB TABLET GT SCH (09:02)
[2019-02-26] MEDS: CALCIUM CARBONATE 500 MG TAB.CHEW GT SCH ×2 (09:03→17:28)
[2019-02-26] MEDS: HYDROGEN PEROXIDE 480 ML BOTTLE TP SCH ×2 (10:50→20:07)
[2019-02-26] MEDS: GLUCERNA 1.2 1,000 ML BOTTLE GT PRN (10:55)
[2019-02-26] MEDS: ASCORBIC ACID 500 MG TABLET GT SCH (20:07)
[2019-02-26 20:28] VITALS: BP 142/66
[2019-02-26] MEDS: INSULIN GLARGINE, 100 UNIT/ML CARTRIDGE SQ SCH (21:20)
[2019-02-27 00:10] VITALS: BP 123/47
[2019-02-27] MEDS: ALBUTEROL FS 2.5 MG/3 ML VIAL.NEB NEB SCH ×4 (01:21→19:15)
[2019-02-27] MEDS: GLUCERNA 1.2 1,000 ML BOTTLE GT PRN ×2 (05:24→22:35)
[2019-02-27] MEDS: DEXILANT 30 MG GT SCH (05:24)
[2019-02-27] MEDS: GABAPENTIN 250 MG/5 ML SOLUTION GT SCH ×3 (05:24→21:47)
[2019-02-27] MEDS: INSULIN REGULAR, HUMAN 100 UNIT/ML 3 ML VIAL SQ PRN ×3 (05:24→18:31)
[2019-02-27] MEDS: BLOOD SUGAR DIAGNOSTIC 1 EACH STRIP IN SCH ×3 (05:24→18:30)
[2019-02-27] MEDS: METOCLOPRAMIDE HCL 10 MG TABLET GT SCH ×3 (05:24→21:47)
--- NOTE | 2019-02-27 06:01 | NUR ---
RT PATIENT WAS RECEIVED ON CONTINUOUS VENT SUPPORT ON NOTED VENT SETTINGS.AIRWAY PATENT AND SECURED. PATIENT STABLE THROUGHOUT TH E SHIFT.WILL CONTINUE TO MONITOR. Addendum: 02/27/19 at 0604 by DIEGO BRADY RT Amended: Links added.
[2019-02-27 07:40] VITALS: BP 110/58
[2019-02-27] MEDS: SIMETHICONE SUSP 40 MG/0.6 ML BOTTLE GT SCH ×2 (08:00→20:00)
[2019-02-27] MEDS: HYDROGEN PEROXIDE 480 ML BOTTLE TP SCH ×2 (09:00→21:48)
[2019-02-27] MEDS: CALCIUM CARBONATE 500 MG TAB.CHEW GT SCH ×2 (09:00→17:22)
[2019-02-27] MEDS: LEVETIRACETAM SOL (5 ML) 100 MG/ML UDC GT SCH ×2 (09:00→21:47)
[2019-02-27] MEDS: ACIDOPHILUS/BULGARICUS 1 EACH TAB.CHEW GT SCH ×2 (09:00→17:22)
[2019-02-27] MEDS: FERROUS SULFATE - FOR SA ONLY 330 MG/7.5 ML UDC GT SCH ×2 (09:00→17:22)
[2019-02-27] MEDS: Z GUARD REMEDY 4 OZ OINT TP SCH ×2 (09:00→21:48)
[2019-02-27] MEDS: ZINC OXIDE 30 GM TUBE TP SCH (09:00)
[2019-02-27] MEDS: TRILEPTAL GT SCH ×2 (09:00→21:47)
[2019-02-27] MEDS: DOCUSATE SODIUM LIQ 100 MG/10 ML UDC GT SCH (09:00)
[2019-02-27] MEDS: VIT A TP SCH ×2 (09:00→21:48)
[2019-02-27] MEDS: POVIDONE-IODINE OINT 28.4 GM TUBE TP SCH ×2 (09:00→21:47)
[2019-02-27] MEDS: CLOTRIMAZOLE 1% 15 GM TUBE TP SCH (09:00)
[2019-02-27] MEDS: [UNRECOGNIZED DRUG - OTHER] TP SCH ×2 (09:00→21:48)
[2019-02-27] MEDS: MULTIVIT W/MINERALS 1 TAB TABLET GT SCH (09:00)
[2019-02-27] MEDS: AMIKACIN 350 MG in IV D5W 100 ML IV SCH (20:00)
[2019-02-27 20:54] VITALS: BP 106/56
[2019-02-27] MEDS: ASCORBIC ACID 500 MG TABLET GT SCH (21:47)
[2019-02-27] MEDS: INSULIN GLARGINE, 100 UNIT/ML CARTRIDGE SQ SCH (21:49)
[2019-02-28] MEDS: BLOOD SUGAR DIAGNOSTIC 1 EACH STRIP IN SCH ×5 (00:25→23:06)
[2019-02-28] MEDS: INSULIN REGULAR, HUMAN 100 UNIT/ML 3 ML VIAL SQ PRN ×5 (00:25→23:06)
--- NOTE | 2019-02-28 00:26 | NUR ---
rn notes: blood sugar result is 124, no insulin coverage given per sliding scale
[2019-02-28] MEDS: ALBUTEROL FS 2.5 MG/3 ML VIAL.NEB NEB SCH ×4 (01:24→19:15)
--- NOTE | 2019-02-28 05:09 | NUR ---
RT PATIENT WAS RECEIVED ON CONTINUOUS VENT SUPPORT ON NOTED VENT SETTINGS.ALARMS ARE SET AND AUDIBLE.AIRWAY PATENT AND SECURED. PATIENT STABLE AND TOLERATED CURRENT VENT SETTINGS.WILL CONTINUE TO MONITOR. Addendum: 02/28/19 at 0512 by DIEGO BRADY RT Amended: Links added.
[2019-02-28] MEDS: DEXILANT 30 MG GT SCH (05:58)
[2019-02-28] MEDS: METOCLOPRAMIDE HCL 10 MG TABLET GT SCH ×3 (05:58→20:08)
[2019-02-28] MEDS: GABAPENTIN 250 MG/5 ML SOLUTION GT SCH ×3 (05:58→20:08)
[2019-02-28 07:42] VITALS: BP 125/64
[2019-02-28] MEDS: SIMETHICONE SUSP 40 MG/0.6 ML BOTTLE GT SCH ×2 (08:00→20:07)
[2019-02-28] MEDS: HYDROGEN PEROXIDE 480 ML BOTTLE TP SCH ×2 (09:00→21:00)
[2019-02-28] MEDS: LEVETIRACETAM SOL (5 ML) 100 MG/ML UDC GT SCH ×2 (09:16→20:07)
[2019-02-28] MEDS: MULTIVIT W/MINERALS 1 TAB TABLET GT SCH (09:16)
[2019-02-28] MEDS: FERROUS SULFATE - FOR SA ONLY 330 MG/7.5 ML UDC GT SCH ×2 (09:16→16:41)
[2019-02-28] MEDS: CALCIUM CARBONATE 500 MG TAB.CHEW GT SCH ×2 (09:16→16:41)
[2019-02-28] MEDS: DOCUSATE SODIUM LIQ 100 MG/10 ML UDC GT SCH (09:16)
[2019-02-28] MEDS: TRILEPTAL GT SCH ×2 (09:16→20:08)
[2019-02-28] MEDS: ACIDOPHILUS/BULGARICUS 1 EACH TAB.CHEW GT SCH ×2 (09:16→16:41)
[2019-02-28] MEDS: VIT A TP SCH ×2 (09:17→20:08)
[2019-02-28] MEDS: POVIDONE-IODINE OINT 28.4 GM TUBE TP SCH ×2 (09:17→20:08)
[2019-02-28] MEDS: Z GUARD REMEDY 4 OZ OINT TP SCH ×2 (09:17→20:08)
[2019-02-28] MEDS: [UNRECOGNIZED DRUG - OTHER] TP SCH ×2 (09:17→20:08)
--- NOTE | 2019-02-28 17:23 | NUR ---
PT. RECEIVED ON [facility]. VENT ALARMS ARE SET AND AUDIBLE. VENT. PLUGGED INTO THE RED OUTLET. AMBU BAG AND SPARE TRACH IS AT BEDSIDE. NO SOB NOTE PT. IS COMFORTABLE. SX MODERATE WHITE GREEN THICK SECRETIONS T/O THE DAY. PT TOLERATED TX'S WELL. TRACHEOSTOMY TUBE IS PATENT AND SECURED. TRACH CARE DONE. WILL CONTINUE TO MONITOR T/O THE DAY. Addendum: 02/28/19 at 1731 by DAVE HICKMAN RT Amended: Links added.
[2019-02-28 19:45] VITALS: BP 130/59
[2019-02-28] MEDS: ASCORBIC ACID 500 MG TABLET GT SCH (20:08)
[2019-02-28] MEDS: INSULIN GLARGINE, 100 UNIT/ML CARTRIDGE SQ SCH (21:18)
[2019-02-28] MEDS: GLUCERNA 1.2 1,000 ML BOTTLE GT PRN (22:50)
[2019-03-01] MEDS: ALBUTEROL FS 2.5 MG/3 ML VIAL.NEB NEB SCH ×4 (00:44→19:32)
[2019-03-01] MEDS: DEXILANT 30 MG GT SCH (05:18)
[2019-03-01] MEDS: METOCLOPRAMIDE HCL 10 MG TABLET GT SCH ×3 (05:18→20:10)
[2019-03-01] MEDS: GABAPENTIN 250 MG/5 ML SOLUTION GT SCH ×3 (05:18→20:10)
[2019-03-01] MEDS: BLOOD SUGAR DIAGNOSTIC 1 EACH STRIP IN SCH ×4 (06:05→23:19)
[2019-03-01] MEDS: INSULIN REGULAR, HUMAN 100 UNIT/ML 3 ML VIAL SQ PRN ×4 (06:07→23:20)
[2019-03-01 07:46] VITALS: BP 122/64
[2019-03-01] MEDS: AMIKACIN 350 MG in IV D5W 100 ML IV SCH (08:00)
[2019-03-01] MEDS: FERROUS SULFATE - FOR SA ONLY 330 MG/7.5 ML UDC GT SCH ×2 (08:54→16:41)
[2019-03-01] MEDS: TRILEPTAL GT SCH ×2 (08:54→20:10)
[2019-03-01] MEDS: ACIDOPHILUS/BULGARICUS 1 EACH TAB.CHEW GT SCH ×2 (08:54→16:41)
[2019-03-01] MEDS: DOCUSATE SODIUM LIQ 100 MG/10 ML UDC GT SCH (08:54)
[2019-03-01] MEDS: SIMETHICONE SUSP 40 MG/0.6 ML BOTTLE GT SCH ×2 (08:54→20:10)
[2019-03-01] MEDS: MULTIVIT W/MINERALS 1 TAB TABLET GT SCH (08:54)
[2019-03-01] MEDS: CALCIUM CARBONATE 500 MG TAB.CHEW GT SCH ×2 (08:54→16:41)
[2019-03-01] MEDS: LEVETIRACETAM SOL (5 ML) 100 MG/ML UDC GT SCH ×2 (08:54→20:10)
[2019-03-01] MEDS: POVIDONE-IODINE OINT 28.4 GM TUBE TP SCH ×2 (08:55→20:10)
[2019-03-01] MEDS: VIT A TP SCH ×2 (08:55→20:10)
[2019-03-01] MEDS: Z GUARD REMEDY 4 OZ OINT TP SCH ×2 (08:55→20:10)
[2019-03-01] MEDS: [UNRECOGNIZED DRUG - OTHER] TP SCH ×2 (08:55→20:10)
[2019-03-01] MEDS: HYDROGEN PEROXIDE 480 ML BOTTLE TP SCH ×2 (09:46→19:32)
--- NOTE | 2019-03-01 09:46 | NUR ---
RT PT REC'D TRACH'D ON MECHANICAL VENT WITH CHARTED SETTINGS. NO SOB NOTED AT THIS TIME. VENT PLUGGED INTO RED OUTLET. ALARMS ARE ON AND AUDIBLE. AMBU BAG AT BEDSIDE. Addendum: 03/01/19 at 0948 by MARCO FRANCOIS RT Amended: Links added.
--- NOTE | 2019-03-01 10:00 | NUR ---
Seen by Dr Felix. Received order to DC Ativan 1 mg IV q 6 PRN for constantly moving arms. Pt has an order of Ativan via GT for seizures.
--- NOTE | 2019-03-01 14:54 | NUR ---
STEPHEN called family to invite them to IDT meeting taking place this Thursday, March 04, 2019 from 12:30pm-1:30pm in the [facility] activities room. Per pt.s sister, Beckie [phone] she will be in attendance.
--- NOTE | 2019-03-01 17:00 | NUR ---
Amikacin trough 4.5 BUN 46 Cr 3.0 Received order to DC Amikacin 350 mg IV q 36 hours and give Amikacin 350 mg IV q 48 hours until 03/05/19.
--- NOTE | 2019-03-01 19:32 | NUR ---
RT NOTE: RECEIVED TRACH PT ON [facility] VENT ON NOTED SETTINGS PER MD ORDERS. TRACH IS PATENT AND SECURED. TRACH CARE DONE. TEST SKEIN WINDER DONE. Q6 BREATHING TX GIVEN WITH NO ADVERSE REACTION NOTED. SX DONE PRN. VENT PLUGGED INTO RED OUTLET. ALARMS ON AND AUDIBLE. KATHARINEU BAG @ BEDSIDE. NO RESP DISTRESS AT THIS TIME. WILL CONT TO MONITOR PT. Addendum: 03/02/19 at 0235 by QIANA MARY RT Amended: Links added.
[2019-03-01 20:07] VITALS: BP 111/68
[2019-03-01] MEDS: ASCORBIC ACID 500 MG TABLET GT SCH (20:10)
[2019-03-01] MEDS: INSULIN GLARGINE, 100 UNIT/ML CARTRIDGE SQ SCH (22:03)
[2019-03-01] MEDS: GLUCERNA 1.2 1,000 ML BOTTLE GT PRN (23:19)
[2019-03-02] MEDS: ALBUTEROL FS 2.5 MG/3 ML VIAL.NEB NEB SCH ×4 (01:24→19:28)
[2019-03-02] MEDS: DEXILANT 30 MG GT SCH (05:02)
[2019-03-02] MEDS: METOCLOPRAMIDE HCL 10 MG TABLET GT SCH ×3 (05:02→20:12)
[2019-03-02] MEDS: GABAPENTIN 250 MG/5 ML SOLUTION GT SCH ×3 (05:02→20:12)
[2019-03-02] MEDS: INSULIN REGULAR, HUMAN 100 UNIT/ML 3 ML VIAL SQ PRN ×4 (05:58→23:11)
[2019-03-02] MEDS: BLOOD SUGAR DIAGNOSTIC 1 EACH STRIP IN SCH ×4 (05:58→23:11)
[2019-03-02] MEDS: SIMETHICONE SUSP 40 MG/0.6 ML BOTTLE GT SCH ×2 (08:00→20:12)
[2019-03-02] MEDS: HYDROGEN PEROXIDE 480 ML BOTTLE TP SCH ×2 (08:03→19:28)
[2019-03-02 08:05] VITALS: BP 122/62
[2019-03-02] MEDS: CALCIUM CARBONATE 500 MG TAB.CHEW GT SCH ×2 (09:36→16:58)
[2019-03-02] MEDS: FERROUS SULFATE - FOR SA ONLY 330 MG/7.5 ML UDC GT SCH ×2 (09:36→16:58)
[2019-03-02] MEDS: VIT A TP SCH ×2 (09:36→20:12)
[2019-03-02] MEDS: LEVETIRACETAM SOL (5 ML) 100 MG/ML UDC GT SCH ×2 (09:36→20:12)
[2019-03-02] MEDS: [UNRECOGNIZED DRUG - OTHER] TP SCH ×2 (09:36→20:12)
[2019-03-02] MEDS: POVIDONE-IODINE OINT 28.4 GM TUBE TP SCH ×2 (09:36→20:12)
[2019-03-02] MEDS: DOCUSATE SODIUM LIQ 100 MG/10 ML UDC GT SCH (09:36)
[2019-03-02] MEDS: TRILEPTAL GT SCH ×2 (09:36→20:12)
[2019-03-02] MEDS: MULTIVIT W/MINERALS 1 TAB TABLET GT SCH (09:36)
[2019-03-02] MEDS: Z GUARD REMEDY 4 OZ OINT TP SCH ×2 (09:36→20:12)
[2019-03-02] MEDS: ACIDOPHILUS/BULGARICUS 1 EACH TAB.CHEW GT SCH ×2 (09:36→16:58)
--- NOTE | 2019-03-02 17:00 | NUR ---
RT NOTE PATIENT RECEIVED ON MECHANICAL VENT WITH NOTED SETTINGS PER MD ORDERS. ALARMS ARE SET AND AUDIBLE AND PLUGGED TO RED OUTLET. TRACH IS PATENT AND SECURED AND MEMBERSHIP SALES ADVISOR DONE. EXTRA TRACH IS AT BEDSIDE. BVM IS AT BEDSIDE. Q6 TREATMENTS GIVEN WITH NO ADVERSE REACTIONS. SUCTION MODERATE WHITE GREEN SECRETIONS PRN. HEART RATE AND SATURATIONS WERE WITHIN NORMAL VALUES. BREATH SOUNDS WERE COARSE TROUGH OUT THE DAY. TRACH CARE WAS DONE. NO RESPIRATORY DISTRESS NOTED.
[2019-03-02] MEDS: GLUCERNA 1.2 1,000 ML BOTTLE GT PRN (18:36)
--- NOTE | 2019-03-02 19:29 | NUR ---
RT NOTE: RECEIVED TRACH PT ON [facility] VENT ON NOTED SETTINGS PER MD ORDERS. TRACH IS PATENT AND SECURED. TRACH CARE DONE. AIR CONDITIONING SERVICE TECHNICIAN DONE. Q6 BREATHING TX GIVEN WITH NO ADVERSE REACTION NOTED. SX DONE PRN. VENT PLUGGED INTO RED OUTLET. ALARMS ON AND AUDIBLE. KATHARINEU BAG @ BEDSIDE. NO RESP DISTRESS AT THIS TIME. WILL CONT TO MONITOR PT. Addendum: 03/03/19 at 0239 by QIANA MARY RT Amended: Links added.
[2019-03-02 19:52] VITALS: BP 106/53
[2019-03-02] MEDS: ASCORBIC ACID 500 MG TABLET GT SCH (20:12)
[2019-03-02] MEDS: INSULIN GLARGINE, 100 UNIT/ML CARTRIDGE SQ SCH (21:34)
[2019-03-03] MEDS: ALBUTEROL FS 2.5 MG/3 ML VIAL.NEB NEB SCH ×4 (01:18→19:51)
[2019-03-03] MEDS: METOCLOPRAMIDE HCL 10 MG TABLET GT SCH ×3 (05:17→20:57)
[2019-03-03] MEDS: DEXILANT 30 MG GT SCH (05:17)
[2019-03-03] MEDS: GABAPENTIN 250 MG/5 ML SOLUTION GT SCH ×3 (05:17→20:57)
[2019-03-03] MEDS: BLOOD SUGAR DIAGNOSTIC 1 EACH STRIP IN SCH ×3 (05:50→18:05)
[2019-03-03] MEDS: INSULIN REGULAR, HUMAN 100 UNIT/ML 3 ML VIAL SQ PRN ×3 (05:50→18:08)
[2019-03-03 07:34] VITALS: BP 127/68
[2019-03-03] MEDS: HYDROGEN PEROXIDE 480 ML BOTTLE TP SCH ×2 (07:40→20:40)
[2019-03-03] MEDS: SIMETHICONE SUSP 40 MG/0.6 ML BOTTLE GT SCH ×2 (08:00→20:57)
[2019-03-03] MEDS ORDERED: AMIKACIN 350 MG in IV D5W 100 ML IV SCH (08:00)
[2019-03-03] MEDS: MULTIVIT W/MINERALS 1 TAB TABLET GT SCH (09:21)
[2019-03-03] MEDS: DOCUSATE SODIUM LIQ 100 MG/10 ML UDC GT SCH (09:21)
[2019-03-03] MEDS: FERROUS SULFATE - FOR SA ONLY 330 MG/7.5 ML UDC GT SCH ×2 (09:21→16:52)
[2019-03-03] MEDS: ACIDOPHILUS/BULGARICUS 1 EACH TAB.CHEW GT SCH ×2 (09:21→16:52)
[2019-03-03] MEDS: TRILEPTAL GT SCH ×2 (09:21→20:57)
[2019-03-03] MEDS: LEVETIRACETAM SOL (5 ML) 100 MG/ML UDC GT SCH ×2 (09:21→20:57)
[2019-03-03] MEDS: CALCIUM CARBONATE 500 MG TAB.CHEW GT SCH ×2 (09:21→16:52)
[2019-03-03] MEDS: [UNRECOGNIZED DRUG - OTHER] TP SCH ×2 (09:22→20:58)
[2019-03-03] MEDS: Z GUARD REMEDY 4 OZ OINT TP SCH ×2 (09:22→20:58)
[2019-03-03] MEDS: POVIDONE-IODINE OINT 28.4 GM TUBE TP SCH ×2 (09:22→20:58)
[2019-03-03] MEDS: VIT A TP SCH ×2 (09:22→20:58)
[2019-03-03] MEDS: GLUCERNA 1.2 1,000 ML BOTTLE GT PRN (16:53)
--- NOTE | 2019-03-03 18:30 | NUR ---
RT NOTE PATIENT RECEIVED ON MECHANICAL VENT WITH NOTED SETTINGS PER MD ORDERS. ALARMS ARE SET AND AUDIBLE AND PLUGGED TO RED OUTLET. TRACH IS PATENT AND SECURED AND SILVERWARE BUFFER DONE. EXTRA TRACH IS AT BEDSIDE. BVM IS AT BEDSIDE. Q6 TREATMENTS GIVEN WITH NO ADVERSE REACTIONS. SUCTION MODERATE WHITE GREEN SECRETIONS PRN. HEART RATE AND SATURATIONS WERE WITHIN NORMAL VALUES. BREATH SOUNDS WERE COARSE TROUGH OUT THE DAY. TRACH CARE WAS DONE. NO RESPIRATORY DISTRESS NOTED.
[2019-03-03 19:57] VITALS: BP 114/53
[2019-03-03] MEDS: ASCORBIC ACID 500 MG TABLET GT SCH (20:57)
[2019-03-03] MEDS: INSULIN GLARGINE, 100 UNIT/ML CARTRIDGE SQ SCH (22:30)
--- NOTE | 2019-03-03 23:51 | NUR ---
PT RCVD TRACH'D ON MECHANICAL VENT WITH CHARTED SETTINGS. PT APIRL TX WELL. SX DONE. PT TRACH IS PATENT AND SECURE. VENT PLUGGED INTO RED OUTLET. ALARMS ARE ON AND AUDIBLE. AMBU BAG AT BEDSIDE. Addendum: 03/03/19 at 2351 by MICH AVILA RT Amended: Links added.
[2019-03-04] MEDS: BLOOD SUGAR DIAGNOSTIC 1 EACH STRIP IN SCH ×5 (00:12→23:41)
[2019-03-04] MEDS: INSULIN REGULAR, HUMAN 100 UNIT/ML 3 ML VIAL SQ PRN ×5 (00:15→23:43)
[2019-03-04] MEDS: ALBUTEROL FS 2.5 MG/3 ML VIAL.NEB NEB SCH ×5 (00:30→23:27)
[2019-03-04] MEDS: DEXILANT 30 MG GT SCH (05:27)
[2019-03-04] MEDS: GABAPENTIN 250 MG/5 ML SOLUTION GT SCH ×3 (05:27→20:40)
[2019-03-04] MEDS: METOCLOPRAMIDE HCL 10 MG TABLET GT SCH ×3 (05:27→20:40)
[2019-03-04 07:51] VITALS: BP 109/66
[2019-03-04] MEDS: SIMETHICONE SUSP 40 MG/0.6 ML BOTTLE GT SCH ×2 (08:00→20:40)
[2019-03-04] MEDS: VIT A TP SCH ×2 (09:00→20:41)
[2019-03-04] MEDS: POVIDONE-IODINE OINT 28.4 GM TUBE TP SCH ×2 (09:00→20:41)
[2019-03-04] MEDS: HYDROGEN PEROXIDE 480 ML BOTTLE TP SCH ×2 (09:00→20:07)
[2019-03-04] MEDS: Z GUARD REMEDY 4 OZ OINT TP SCH ×2 (09:00→20:41)
[2019-03-04] MEDS: [UNRECOGNIZED DRUG - OTHER] TP SCH ×2 (09:00→20:41)
[2019-03-04] MEDS: TRILEPTAL GT SCH ×2 (09:13→20:40)
[2019-03-04] MEDS: ACIDOPHILUS/BULGARICUS 1 EACH TAB.CHEW GT SCH ×2 (09:13→17:18)
[2019-03-04] MEDS: CALCIUM CARBONATE 500 MG TAB.CHEW GT SCH ×2 (09:13→17:18)
[2019-03-04] MEDS: LEVETIRACETAM SOL (5 ML) 100 MG/ML UDC GT SCH ×2 (09:13→20:40)
[2019-03-04] MEDS: FERROUS SULFATE - FOR SA ONLY 330 MG/7.5 ML UDC GT SCH ×2 (09:13→17:18)
[2019-03-04] MEDS: DOCUSATE SODIUM LIQ 100 MG/10 ML UDC GT SCH (09:13)
[2019-03-04] MEDS: MULTIVIT W/MINERALS 1 TAB TABLET GT SCH (09:13)
--- NOTE | 2019-03-04 11:30 | NUR ---
Seen and examined by Dr. Jayne Michael, chicken stuffer, NNO given.
[2019-03-04] MEDS: GLUCERNA 1.2 1,000 ML BOTTLE GT PRN (15:26)
--- NOTE | 2019-03-04 16:04 | NUR ---
INTERDISCIPLINARY TEAM PLAN OF CARE CONFERENCE was held today. The patient's responsible republican/ sister, Beckie Chu [phone] was in attendance. IDT addressed all of familys questions and concerns. Charge Nurse discussed recent seizure, and Amikacin 350 mg IV q 48 hours until 03/05/19. Dr. Felix and interdisciplinary team discussed the current plan of care in detail. Current orders as well as treatments and medications were reviewed. See other discipline's IDT notes for further details.
--- NOTE | 2019-03-04 17:38 | NUR ---
RT NOTE PT REMAINS MECHANICALLY VENTILATED VIA CUFFED TRACHEOSTOMY TUBE. SETTINGS PRESCRIBED. ALARMS SET PER PROTOCOL AND AUDIBLE. VENT PLUGGED IN RED OUTLET. AMBU BAG AT BED SIDE. NO DISTRESS NOTED. Addendum: 03/04/19 at 1738 by MAXI BRADY RT Amended: Links added.
--- NOTE | 2019-03-04 20:18 | NUR ---
PT RCVD TRACH'D ON MECHANICAL VENT WITH CHARTED SETTINGS. PT APRIL TX WELL. SX DONE. PT TRACH IS PATENT AND SECURE. VENT PLUGGED INTO RED OUTLET. ALARMS ARE ON AND AUDIBLE. AMBU BAG AT BEDSIDE. Addendum: 03/04/19 at 2018 by MICH AVILA RT Amended: Links added.
[2019-03-04 20:37] VITALS: BP 139/63
[2019-03-04] MEDS: ASCORBIC ACID 500 MG TABLET GT SCH (20:40)
[2019-03-04] MEDS: INSULIN GLARGINE, 100 UNIT/ML CARTRIDGE SQ SCH (21:52)
--- NOTE | 2019-03-04 23:28 | NUR ---
RT NOTE BREATHING TX ADMINISTERED EARLY PER CHARGE NURSE REQUEST.
--- NOTE | 2019-03-04 23:28 | NUR ---
Primary nurse noted patient with nasal flaring. patient awake and calm no labored breathing, RR 18, no wheezing. suctioning done with thick yellow secretion. no plug. asked the RT to give the breathing treatment earlier. will continue to monitor.
[2019-03-04] MEDS: ACETAMINOPHEN 650 MG/20 ML UDC- SA PATIENTS-PAIN ONLY GT PRN (23:57)
--- NOTE | 2019-03-05 00:32 | NUR ---
PATIENT ASLEEP. NO NASAL FLARING NOTED. RR REMAINED THE SAME AT 18BPM. WILL CONTINUE TO MONITOR.
[2019-03-05] MEDS: BLOOD SUGAR DIAGNOSTIC 1 EACH STRIP IN SCH ×4 (05:47→23:07)
[2019-03-05] MEDS: DEXILANT 30 MG GT SCH (05:47)
[2019-03-05] MEDS: GABAPENTIN 250 MG/5 ML SOLUTION GT SCH ×3 (05:47→20:45)
[2019-03-05] MEDS: METOCLOPRAMIDE HCL 10 MG TABLET GT SCH ×3 (05:47→20:45)
[2019-03-05] MEDS: INSULIN REGULAR, HUMAN 100 UNIT/ML 3 ML VIAL SQ PRN ×4 (05:47→23:09)
[2019-03-05] MEDS: ALBUTEROL FS 2.5 MG/3 ML VIAL.NEB NEB SCH ×3 (07:35→20:10)
[2019-03-05 07:54] VITALS: BP 110/65
[2019-03-05] MEDS: SIMETHICONE SUSP 40 MG/0.6 ML BOTTLE GT SCH ×2 (08:59→20:45)
[2019-03-05] MEDS: LEVETIRACETAM SOL (5 ML) 100 MG/ML UDC GT SCH ×2 (08:59→20:45)
[2019-03-05] MEDS: DOCUSATE SODIUM LIQ 100 MG/10 ML UDC GT SCH (08:59)
[2019-03-05] MEDS: FERROUS SULFATE - FOR SA ONLY 330 MG/7.5 ML UDC GT SCH ×2 (08:59→17:00)
[2019-03-05 09:00] VITALS: BP 110/65
[2019-03-05] MEDS: [UNRECOGNIZED DRUG - OTHER] TP SCH ×2 (09:00→20:45)
[2019-03-05] MEDS: VIT A TP SCH ×2 (09:00→20:45)
[2019-03-05] MEDS: POVIDONE-IODINE OINT 28.4 GM TUBE TP SCH ×2 (09:00→20:45)
[2019-03-05] MEDS: CALCIUM CARBONATE 500 MG TAB.CHEW GT SCH ×2 (09:02→17:00)
[2019-03-05] MEDS: Z GUARD REMEDY 4 OZ OINT TP SCH ×2 (09:02→20:46)
[2019-03-05] MEDS: MULTIVIT W/MINERALS 1 TAB TABLET GT SCH (09:02)
[2019-03-05] MEDS: ACIDOPHILUS/BULGARICUS 1 EACH TAB.CHEW GT SCH ×2 (09:02→17:00)
[2019-03-05] MEDS: TRILEPTAL GT SCH ×2 (09:02→20:45)
[2019-03-05] MEDS: ACETAMINOPHEN 650 MG/20 ML UDC- SA PATIENTS-PAIN ONLY GT PRN (09:03)
[2019-03-05 10:03] VITALS: BP 116/65
[2019-03-05] MEDS: ACETAMINOPHEN 650 MG/20 ML UDC- SA PATIENTS-FEVER ONLY GT PRN (20:00)
[2019-03-05] MEDS: HYDROGEN PEROXIDE 480 ML BOTTLE TP SCH (20:10)
[2019-03-05] MEDS: ASCORBIC ACID 500 MG TABLET GT SCH (20:45)
--- NOTE | 2019-03-05 20:49 | NUR ---
Charge nurse VANDANA Montaño regarding patient's temperature of 102.7 axilla. PO=162, RR=16, UD=903/62. also informed him that patient just finished Amikacin treatment for UTI. He responded by stating to f/u with Infection Disease.
[2019-03-05] MEDS: INSULIN GLARGINE, 100 UNIT/ML CARTRIDGE SQ SCH (21:28)
--- NOTE | 2019-03-05 21:30 | NUR ---
Dr. Montaño stopped by the nurses station he asked regarding the patient. Charge nurse informed him that still have fever. He ordered 1/2 NS IVF @80cc/hr, CBC with dif, BMP, urine culture, blood culture stats. Charge nurse also asked for order of PRN breathing treatment albuterol 2.5mg q6hrs prn.
[2019-03-05 21:51] VITALS: BP 128/62
[2019-03-05] MEDS ORDERED: ALBUTEROL FS 2.5 MG/3 ML VIAL.NEB NEB PRN (22:00)
[2019-03-05 22:33] LABS: BASOPHILS # (AUTO) 0.1 /CMM (0.0-0.2); BASOPHILS % (AUTO) 0.2 % (0.0-2.0); EOSINOPHILS % (AUTO) 0.3 % (0.0-6.0); LYMPHOCYTES % (AUTO) 7.2 % (20.0-44.0); MEAN CORPUSCULAR HGB CONC 34 g/dl (31.0-36.0); MEAN CORPUSCULAR VOLUME 99 fL (82-100); MONOCYTES # (AUTO) 1.5 /CMM (0.1-1.30); MONOCYTES % (AUTO) 5.3 % (2.0-12.0); NEUTROPHILS # (AUTO) 24.4 /CMM (1.8-8.9); PLATELET COUNT (AUTO) 406 /CMM (150-450); WHITE BLOOD COUNT (AUTO) 28.1 K/uL (4.3-11.0)
[2019-03-05 22:34] LABS: RED BLOOD CELL COUNT(AUTO) 1.69 MIL/uL (4.0-5.2)
[2019-03-05 22:38] LABS: HEMATOCRIT 17 % (33-45); HEMOGLOBIN 5.7 g/dL (11.5-14.8)
[2019-03-05 22:49] LABS: CALCIUM, SERUM 9.7 mg/dL (8.5-10.1); CREATININE 3.1 mg/dL (0.6-1.3); POTASSIUM 3.8 mmol/L (3.5-5.1)
--- NOTE | 2019-03-05 23:05 | NUR ---
Charge nurse informed Dr. Montaño of the CBC and BMP result. WBC=28.1, hemoglobin=5.7, hematocrit=17% BMP shows BUN=49 and Creatinine=3.1. will wait for the respond.
--- NOTE | 2019-03-05 23:07 | NUR ---
Received an order from Dr. Montaño to Transfer to ER. Charge nurse informed primary nurse and to prepare for transfer.
[2019-03-05 23:34] LABS: LYMPHOCYTES % (MANUAL) 6 % (16-48); MONOCYTES % (MANUAL) 4 % (0-11.0); NEUTROPHILS % (MANUAL) 90 (42-76)
--- NOTE | 2019-03-06 00:01 | NUR ---
Patient transferred to ER via Bed with the primary nurse and RT. current VS is Temp=98.8, HR=88, RR=18, TA=717/56.
--- NOTE | 2019-03-06 00:20 | NUR ---
Called and spoke to Beckie Sandoval (Sister) regarding changes in condition. Notified sister that patient was transferred to ED for eval due to abnormal labs. Sister verbalized understanding with no further question at this time.
[2019-03-06] MEDS ORDERED: GABA600T12 GT (07:55)
[2019-03-06] MEDS ORDERED: BLOO-668 IN (07:55)
[2019-03-06] MEDS ORDERED: DEXL60CA3 GT (07:55)
[2019-03-06] MEDS ORDERED: OXCA600T5 GT (07:55)
[2019-03-06] MEDS ORDERED: DEXT50DI8 IV (07:55)
[2019-03-06] MEDS ORDERED: VITA56.7 TP (07:55)
[2019-03-06] MEDS ORDERED: FERR300L GT (07:55)
[2019-03-06] MEDS ORDERED: ALLA266C2 TP (07:55)
[2019-03-06] MEDS ORDERED: ALBU2.5V38 IH (07:55)
[2019-03-06] MEDS ORDERED: METO5SOL2 GT (07:55)
[2019-03-06] MEDS ORDERED: LEVE100S GT (07:55)
[2019-03-06] MEDS ORDERED: POVI480S2 TP (07:55)
[2019-03-06] MEDS ORDERED: MULT-447 GT (07:55)
[2019-03-06] MEDS ORDERED: NUT.237L30 GT (07:55)
[2019-03-06] MEDS ORDERED: BISA10SU11 RC (07:55)
[2019-03-06] MEDS ORDERED: INSU100V7 SQ (07:55)
[2019-03-06] MEDS ORDERED: SIME40DR2 GT (07:55)
[2019-03-06] MEDS ORDERED: LORA1TAB GT (07:55)
[2019-03-06] MEDS ORDERED: HYDR1SOL TP (07:55)
[2019-03-06] MEDS ORDERED: AMIK250V8 IV (08:03)
[2019-03-06] MEDS ORDERED: MAGNESIUM HYDROXIDE 30 ML UDC GT PRN (08:30)
[2019-03-06] MEDS ORDERED: CALCIUM CARBONATE 500 MG TAB.CHEW GT SCH (09:00)
--- NOTE | 2019-03-07 11:38 | NUR ---
SW left voicemail reminder for pt. sister, Beckie Chu [phone] regarding family support group taking place 03/09/19 from 11am-12pm.
--- NOTE | 2019-03-09 10:00 | NUR ---
LE for 03/05/19 08:15 Left a message to Dr. Luis patient with low grade T 100, B/P 100/65, HR111, 16, 100%. Resident awake responsive to stimulation and in no acute distress. Cooling measure provide and will continue to monitor temperature. Patient currently on Amikacin IV. LE for 03/05/19 12:35 Amikacin IV given. Rechecked temp 98.8. Continue to monitor.
--- NOTE | 2019-03-10 16:19 | NUR ---
March Family Support Group: Patient's family was unable to attend. SW will invite family to the April Family Support Group.
[2019-03-17] MEDS ORDERED: MUPI22OI7 (12:08)
[2019-03-17] MEDS ORDERED: FLUC200P12 IV (12:08)
[2019-03-17] MEDS ORDERED: PIPE2.254 IV (12:08)
== END 2019-03-06 14:10 | disposition short-term general hospital (02) | DRG 130 ==
LOC: SA
PROVIDERS: ADMIT Internal Medicine; ATTEND Internal Medicine
PROC: 5A1955Z Respiratory Ventilation, Greater than 96 Consecutive Hours (ICD-10-PCS; principal; 2018-06-08)
PROC: 05HB33Z Insertion of Infusion Device into Right Basilic Vein, Percutaneous Approach (ICD-10-PCS; 2018-12-05)
DX: J96.11 Chronic respiratory failure with hypoxia (principal); I21.4 Non-ST elevation (NSTEMI) myocardial infarction; G93.40 Encephalopathy, unspecified; G93.1 Anoxic brain damage, not elsewhere classified; E43 Unspecified severe protein-calorie malnutrition; L89.153 Pressure ulcer of sacral region, stage 3; D68.59 Other primary thrombophilia; E11.22 Type 2 diabetes mellitus with diabetic chronic kidney disease; K56.7 Ileus, unspecified; Z99.11 Dependence on respirator [ventilator] status; I95.9 Hypotension, unspecified; R13.10 Dysphagia, unspecified; R53.2 Functional quadriplegia; I11.0 Hypertensive heart disease with heart failure; I50.9 Heart failure, unspecified; Z93.0 Tracheostomy status; I13.0 Hypertensive heart and chronic kidney disease with heart failure and stage 1 through stage 4 chronic kidney disease, or unspecified chronic kidney disease; D63.8 Anemia in other chronic diseases classified elsewhere; G40.909 Epilepsy, unspecified, not intractable, without status epilepticus; Z87.820 Personal history of traumatic brain injury; N13.1 Hydronephrosis with ureteral stricture, not elsewhere classified; D25.9 Leiomyoma of uterus, unspecified; N18.3 Chronic kidney disease, stage 3 (moderate); Z22.322 Carrier or suspected carrier of Methicillin resistant Staphylococcus aureus; Z86.14 Personal history of Methicillin resistant Staphylococcus aureus infection; Z79.2 Long term (current) use of antibiotics; Z74.01 Bed confinement status; Z93.6 Other artificial openings of urinary tract status; Z87.891 Personal history of nicotine dependence; Z87.440 Personal history of urinary (tract) infections; R21 Rash and other nonspecific skin eruption; Z88.8 Allergy status to other drugs, medicaments and biological substances; K21.9 Gastro-esophageal reflux disease without esophagitis; I25.10 Atherosclerotic heart disease of native coronary artery without angina pectoris; E78.5 Hyperlipidemia, unspecified; F09 Unspecified mental disorder due to known physiological condition; I25.2 Old myocardial infarction; K57.30 Diverticulosis of large intestine without perforation or abscess without bleeding; K29.70 Gastritis, unspecified, without bleeding; N83.291 Other ovarian cyst, right side; E66.3 Overweight; Z68.25 Body mass index [BMI] 25.0-25.9, adult; E11.9 Type 2 diabetes mellitus without complications; B35.1 Tinea unguium; L60.0 Ingrowing nail; L60.3 Nail dystrophy; Z87.442 Personal history of urinary calculi; R19.00 Intra-abdominal and pelvic swelling, mass and lump, unspecified site; N20.0 Calculus of kidney; Z99.81 Dependence on supplemental oxygen; B96.5 Pseudomonas (aeruginosa) (mallei) (pseudomallei) as the cause of diseases classified elsewhere; Z74.09 Other reduced mobility; M62.49 Contracture of muscle, multiple sites; N83.201 Unspecified ovarian cyst, right side; L97.519 Non-pressure chronic ulcer of other part of right foot with unspecified severity
CPT/HCPCS: 31720; 36415; 36569; 36600; 71045-TC; 74018; 80048-TC; 80053-TC; 80150; 80202-TC; 81000-TC; 82310-TC; 82542; 82565-TC; 82803-TC; 82962-TC; 83735-TC; 84100-TC; 84520-TC; 85025-TC; 86580-TC; 86850-TC; 86921-TC; 87040-TC; 87070-TC; 87086-TC; 87186-TC; 94003-TC; 94640-TC; 94760-TC; 94762-TC; 94799-TC; 99082-TC; A4216; A4217; A4623; A6253; A7526; J0278; J0692; J0696; J0713; J1815; J1953; J2185; J2543; J3370; J3490; J7030; J7060; J8597; P9016-BL; Q0163; Q9963

== ENCOUNTER 2019-03-06 00:08 | Inpatient (IN) | payer MEDICAID ==
[~2019-03-06] VITALS: Ht 170.2 cm; Wt 65.3 kg
[2019-03-06] VITALS (16 sets, daily range): BP systolic 96–128; BP diastolic 44–81
[~2019-03-06 00:08] MED LIST changes: +MERO500V IV; -MERO500V21 IV
--- NOTE | 2019-03-06 00:20 | NUR ---
PT BROUGHT FROM SUBACUTE DUE TO ABNORMAL LABS. PER REPORT, WBC 28, HGB 5.7, HCT 17, BUN 49, CREATININE 3.1. PT VENT/TRACH DEPENDENT. VITAL SIGNS STABLE. NO ACUTE DISTRESS NOTED AT THIS TIME. WILL CONTINUE TO MONITOR
[2019-03-06] MEDS ORDERED: PIPERACILLIN /TAZOBACTAM 3.375 G in IV D5W 50 ML IV ONE (00:30)
[2019-03-06] MEDS ORDERED: VANCOMYCIN 1 GM in IV D5W 250 ML IV ONE ×2 (00:30→02:45)
[2019-03-06] MEDS ORDERED: IV NS 0.9% 1,000 ML BAG IV ONE (00:30)
--- NOTE | 2019-03-06 00:40 | NUR ---
PHLEB AT BEDSIDE FOR LAB DRAW
[2019-03-06] MEDS ORDERED: PIPERACILLIN /TAZOBACTAM 3.375 G VIAL IV ONE (00:46)
[2019-03-06] MEDS ORDERED: VANCOMYCIN 1 GM VIAL ONE (00:46)
[2019-03-06 01:04] LABS: BASOPHILS # (AUTO) 0.1 /CMM (0.0-0.2); BASOPHILS % (AUTO) 0.2 % (0.0-2.0); EOSINOPHILS % (AUTO) 0.6 % (0.0-6.0); LYMPHOCYTES # (AUTO) 3.3 /CMM (0.8-4.8); MEAN CORPUSCULAR HGB CONC 33 g/dl (31.0-36.0); MEAN CORPUSCULAR VOLUME 101 fL (82-100); MONOCYTES # (AUTO) 1.7 /CMM (0.1-1.30); MONOCYTES % (AUTO) 5.2 % (2.0-12.0); NEUTROPHILS # (AUTO) 27.9 /CMM (1.8-8.9); PLATELET COUNT (AUTO) 448 /CMM (150-450)
[2019-03-06 01:06] LABS: RED BLOOD CELL COUNT(AUTO) 1.75 MIL/uL (4.0-5.2)
[2019-03-06 01:07] LABS: HEMOGLOBIN 5.9 g/dL (11.5-14.8); WHITE BLOOD COUNT (AUTO) 33.2 K/uL (4.3-11.0)
[2019-03-06 01:07] LABS: APPEARANCE,URINE Slightly Cloudy (CLEAR); BILIRUBIN,URINE Negative (NEGATIVE); BLOOD, URINE Moderate Ery/uL (NEGATIVE); COLOR,URINE Other (YELLOW); KETONES,URINE Negative (NEGATIVE); LEUKOCYTE ESTERASE ,URINE Large (NEGATIVE); NITRITE, URINE Negative (NEGATIVE); PROTEIN,URINE >=300 mg/dl (NEGATIVE); UGLUCOSE Negative (NEGATIVE); UROBILINOGEN,URINE 0.2 EU/dL (0.2)
[2019-03-06 01:08] LABS: HEMATOCRIT 18 % (33-45)
[2019-03-06 01:18] LABS: CALCIUM, SERUM 10.5 mg/dL (8.5-10.1); CARBON DIOXIDE 27 mmol/L (21-32); CHLORIDE 101 mmol/L (98-107); CREATININE 3.1 mg/dL (0.6-1.3); GLUCOSE 133 mg/dL (74-106); POTASSIUM 4.2 mmol/L (3.5-5.1); SODIUM SERUM 137 mmol/L (136-145); UREA NITROGEN, BLOOD 52 mg/dL (7-18)
[2019-03-06 01:24] LABS: ALANINE AMINOTRANSFERASE 22 U/L (12-78); ALBUMIN 2.3 g/dL (3.4-5.0); ALKALINE PHOSPHATASE 107 U/L (46-116); ASPARTATE AMINOTRANSFERASE 22 U/L (15-37); BILIRUBIN,TOTAL 0.1 mg/dL (0.2-1.0); TOTAL PROTEIN, SERUM 9.2 g/dL (6.4-8.2)
[2019-03-06] MEDS ORDERED: ACETAMINOPHEN 650 MG/SUPP.RECT RC PRN (01:30)
[2019-03-06 01:37] LABS: WBC,URINE TOO NUMEROUS TO COUN /HPF (0-3)
[2019-03-06 01:38] LABS: BACTERIA,URINE Many /HPF (None Seen); SQUAMOUS EPITHELIAL CELL,UR Moderate /HPF (None Seen)
--- NOTE | 2019-03-06 02:06 | NUR ---
BED ASSIGNMENT 104 STACIE
--- NOTE | 2019-03-06 02:31 | NUR ---
PT TRANSFERRED PER ACLS PROTOCOL
[2019-03-06] MEDS ORDERED: MEROPENEM 1 G in IV NS 0.9% 100 ML IV SCH (03:00)
--- NOTE | 2019-03-06 03:10 | NUR ---
STACIE RN OPENING NOTES RECEIVED PATIENT FROM ER TO ROOM 104 W/ DX BILATERAL PNEUMONIA UNDER CARE OF DR LEWIS. REPORT RECEIVED FROM ELMA REED. PATIENT A/A/O X1 TO NAME, NON-VERBAL BUT RESPONSIVE TO VERBAL & TACTILE STIMULI. BREATHING EVEN & UNLABORED W/ TRACH INTACT & TOLERATING VENT SETTINGS. SATING WELL @ 100%. ON TELE W/ SINUS RHYTHM, HR 90S. NO CARDIAC OR RESPIRATORY DISTRESS NOTED. RIGHT UPPER ARM MIDLINE INTACT & PATENT W/ DRESSING CDI & ONGOING VANCOMYCIN INFUSION. NO SIGNS OF INFILTRATION NOTED. G-TUBE PATENT & FLUSHING WELL, CLAMPED @ THIS TIME. DAVIDSON CATH DRAINING CLEAR, YELLOW URINE. SKIN ASSESSMENT DONE W/ SCARRING NOTED ON SACRUM. SAFETY MEASURES IN PLACE W/ SIDE RAILS UP & BED ALARM ON. HOB ELEVATED FOR ASPIRATION PRECAUTIONS. WILL CARRY OUT ADMITTING ORDERS & CONTINUE TO MONITOR.
--- NOTE | 2019-03-06 03:19 | NUR ---
STACIE RN NOTES VANCO DOSE SCHEDULED FOR 0245 NOT GIVEN BECAUSE VANCO WAS ALREADY GIVEN IN ER BUT DOCUMENTED LATE. PER AFTER HOUR PHARMACIST, NO NEED TO GIVE 0245 DOSE.
[2019-03-06] MEDS ORDERED: MEROPENEM 1 G VIAL IV ONE (03:40)
--- NOTE | 2019-03-06 05:10 | NUR ---
STACIE RN NOTES 1ST UNIT PRBC TRANSFUSION STARTED. CHECKED & VERIFIED W/ 2ND RN. VSS. WILL MONITOR FOR ADVERSE REACTIONS.
[2019-03-06] MEDS ORDERED: FEE PK DOSING 1 MIN EA MC ONE (06:12)
--- NOTE | 2019-03-06 07:30 | NUR ---
TELE/RN AM NOTES RECEIVED PT. LYING IN BED. OBTUNDED. WITH SHILEY 8 XLT TRACH TO MECHANICAL VENT, SETTING ORDERED. BREATHING EVEN AND UNLABORED TOLERATING VENT SETTINGS ORDERED. NO SOB, RESPIRATORY DISTRESS OR SIGNS OF PAIN NOTED AT THIS TIME. SINUS RHYTHM HR 82. PT. LAKISHA MIDLINE AND LEFT CHEST G22 IV ACCESS BOTH SITES CLEAR. ONGOING 1 UNIT PRBC BAG #1. NS AT 80 ML/HR INFUSING WELL. GTF CLAMPED FOR NOW TILL FURTHER ORDERS. NO RESIDUAL NOTED AT THIS TIME. PT. WITH DAVIDSON CATHETER PRESENT, PATENT AND INTACT. SAFETY AND ASPIRATION PRECAUTIONS IMPLEMENTED AND IN PLACE. BED LOCKED AND IN LOWEST POSITION, SIDE RAILS UP X3, CALL LIGHT WITHIN REACH, WILL CONTINUE TO MONITOR.
[2019-03-06] MEDS ORDERED: GABA600T12 GT (07:55)
[2019-03-06] MEDS ORDERED: HYDR1SOL TP (07:55)
[2019-03-06] MEDS ORDERED: ALBU2.5V38 IH (07:55)
[2019-03-06] MEDS ORDERED: NUT.237L30 GT (07:55)
[2019-03-06] MEDS ORDERED: SIME40DR2 GT (07:55)
[2019-03-06] MEDS ORDERED: BISA10SU11 RC (07:55)
[2019-03-06] MEDS ORDERED: VITA56.7 TP (07:55)
[2019-03-06] MEDS ORDERED: LORA1TAB GT (07:55)
[2019-03-06] MEDS ORDERED: BLOO-668 IN (07:55)
[2019-03-06] MEDS ORDERED: DEXL60CA3 GT (07:55)
[2019-03-06] MEDS ORDERED: LEVE100S GT (07:55)
[2019-03-06] MEDS ORDERED: METO5SOL2 GT (07:55)
[2019-03-06] MEDS ORDERED: OXCA600T5 GT (07:55)
[2019-03-06] MEDS ORDERED: FERR300L GT (07:55)
[2019-03-06] MEDS ORDERED: MULT-447 GT (07:55)
[2019-03-06] MEDS ORDERED: POVI480S2 TP (07:55)
[2019-03-06] MEDS ORDERED: ALLA266C2 TP (07:55)
[2019-03-06] MEDS ORDERED: DEXT50DI8 IV (07:55)
[2019-03-06] MEDS ORDERED: INSU100V7 SQ (07:55)
[2019-03-06] MEDS ORDERED: AMIK250V8 IV (08:03)
[2019-03-06] MEDS ORDERED: MAGNESIUM HYDROXIDE 30 ML UDC GT PRN (08:30)
[2019-03-06] MEDS ORDERED: BISACODYL SUPP (10 MG) 10 MG/SUPP.RECT SUPP.RECT RC PRN (08:30)
--- NOTE | 2019-03-06 08:52 | NUR ---
RN NOTES 1 UNIT PRBC BAG #2 STARTED
[2019-03-06] MEDS: [UNRECOGNIZED DRUG - OTHER] TP SCH ×2 (09:00→21:28)
[2019-03-06] MEDS: VIT A TP SCH ×2 (09:00→21:28)
[2019-03-06] MEDS ORDERED: DEXTROSE 50%-WATER 50 ML DISP.SYRIN IV PRN (09:00)
--- NOTE | 2019-03-06 09:30 | NUR ---
RN NOTES DUE MEDS GIVEN
[2019-03-06] MEDS: LEVETIRACETAM SOL (5 ML) 100 MG/ML UDC GT SCH ×2 (09:48→21:26)
[2019-03-06] MEDS: CALCIUM CARBONATE 500 MG TAB.CHEW GT SCH ×2 (09:48→16:52)
[2019-03-06] MEDS: OXCARBAZEPINE 150 MG TABLET GT SCH ×2 (09:49→21:27)
[2019-03-06] MEDS: FERROUS SULFATE UDC 300 MG/5 ML UDC GT SCH ×2 (09:49→16:51)
[2019-03-06] MEDS: PANTOPRAZOLE 40 MG VIAL IV SCH (09:49)
[2019-03-06] MEDS: MULTIVIT W/MINERALS 1 TAB TABLET GT SCH (09:49)
[2019-03-06] MEDS: DOCUSATE SODIUM LIQ 100 MG/10 ML UDC GT SCH (09:49)
[2019-03-06] MEDS: ACIDOPHILUS/BULGARICUS 1 EACH TAB.CHEW GT SCH ×2 (09:49→16:51)
[2019-03-06] MEDS: SIMETHICONE 80 MG TAB.CHEW GT SCH ×2 (09:54→21:26)
[2019-03-06] MEDS: Z GUARD REMEDY 4 OZ OINT TP SCH ×2 (09:55→21:29)
[2019-03-06] MEDS ORDERED: GLUCERNA 1.2 1,000 ML BOTTLE NG PRN (10:00)
--- NOTE | 2019-03-06 10:30 | NUR ---
RN NOTES 2ND BAG PRBC COMPLETED. NO TRANSFUSION REACTION NOTED.
[2019-03-06] MEDS: IV NS 0.9% 1,000 ML IV PRN (11:16)
[2019-03-06] MEDS: GLUCERNA 1.2 1,000 ML BOTTLE GT PRN (11:18)
[2019-03-06] MEDS: BLOOD SUGAR DIAGNOSTIC 1 EACH STRIP IN SCH ×3 (12:14→23:00)
--- NOTE | 2019-03-06 12:14 | NUR ---
RN NOTES ACCUCHECK. BS 95 MG/DL. NO INSULIN COVERAGE GIVEN 1118 - GTF GLUCERNA 1.2 STARTED AT 40 ML/HR.
[2019-03-06] MEDS: GABAPENTIN 300 MG CAPSULE GT SCH ×2 (13:41→21:26)
[2019-03-06] MEDS: METOCLOPRAMIDE HCL 10 MG TABLET GT SCH ×2 (13:41→21:27)
--- NOTE | 2019-03-06 14:05 | NUR ---
RN NOTES PM CARE DONE.
[2019-03-06] MEDS: ALBUTEROL FS 2.5 MG/3 ML VIAL.NEB NEB SCH ×2 (14:32→19:48)
[2019-03-06] MEDS: MEROPENEM 1 G in IV NS 0.9% 100 ML IV SCH (16:51)
[2019-03-06 18:07] LABS: HEMOGLOBIN 8.3 g/dL (11.5-14.8)
--- NOTE | 2019-03-06 18:54 | NUR ---
TELE/RN CLOSING NOTES PT. LYING IN BED. OBTUNDED. WITH SHILEY 8 XLT TRACH TO MECHANICAL VENT, SETTING ORDERED. BREATHING EVEN AND UNLABORED TOLERATING VENT SETTINGS ORDERED. NO SOB, RESPIRATORY DISTRESS OR SIGNS OF PAIN NOTED AT THIS TIME. SINUS RHYTHM HR 80s. PT. LAKISHA MIDLINE AND LEFT CHEST G22 IV ACCESS BOTH SITES CLEAR. NS AT 80 ML/HR INFUSING WELL. GLUCERNA AT 40 ML/HR GOAL 65 ML/HR FOR 18 HOURS. ON AT 10 AM OFF AT 0400. NO RESIDUAL NOTED AT THIS TIME. PT. WITH DAVIDSON CATHETER PRESENT, 900 ML OUTPUT. PATENT AND INTACT. SAFETY AND ASPIRATION PRECAUTIONS IMPLEMENTED AND IN PLACE. BED LOCKED AND IN LOWEST POSITION, SIDE RAILS UP X3, CALL LIGHT WITHIN REACH, TURNED AND REPOSITIONED Q 2 HOURS. ALL NEEDS MET FOR NOW. WILL ENDORSE TO NEXT SHIFT FOR WHIT.
--- NOTE | 2019-03-06 19:15 | NUR ---
RN OPENING NOTE: PATIENT IN BED. NONVERBAL BUT RESPONSIVE TO VERBAL AND LIGHT TOUCH WITH EYES OPENING SPONTANEOUSLY. NO SOB. NO S/S OF PAIN. NO FACIAL GRIMACING. ON EQUAL OPPORTUNITY SPECIALIST = SR. ON DAVIDSON CATHETER PATENT AND DRAINING CLEAR YELLOW URINE. ON GT FEEDING. NO RESIDUAL. RIGHT UPPER ARM MIDLINE PATENT, INTACT, AND SALINE FLUSHED. BED IN LOWEST POSITION. CALL LIGHT WITHIN REACH. WILL CONT. TO MONITOR.
[2019-03-06] MEDS: ASCORBIC ACID 500 MG TABLET GT SCH (21:27)
[2019-03-06] MEDS: INSULIN GLARGINE, 100 UNIT/ML CARTRIDGE SQ SCH (22:00)
--- NOTE | 2019-03-06 23:00 | NUR ---
RN NOTE: CHECKED PATIENT'S BS = 99. WILL NOT GIVE LANTUS DUE TO DECREASED GT FEEDING RATE TO 30 FROM 60 ML/HR.
[2019-03-07] VITALS: BP 103/54
[2019-03-07] MEDS: ALBUTEROL FS 2.5 MG/3 ML VIAL.NEB NEB SCH ×4 (01:11→19:43)
[2019-03-07] MEDS: VANCOMYCIN 1 GM in IV D5W 250 ML IV SCH (02:01)
[2019-03-07] MEDS: IV NS 0.9% 1,000 ML IV PRN ×2 (02:02→16:33)
[2019-03-07] MEDS: MEROPENEM 1 G in IV NS 0.9% 100 ML IV SCH ×2 (03:18→16:32)
[2019-03-07 04:00] VITALS: BP 135/75
[2019-03-07] MEDS: METOCLOPRAMIDE HCL 10 MG TABLET GT SCH ×3 (05:02→21:07)
[2019-03-07] MEDS: GABAPENTIN 300 MG CAPSULE GT SCH ×3 (05:02→21:07)
[2019-03-07] MEDS: BLOOD SUGAR DIAGNOSTIC 1 EACH STRIP IN SCH ×4 (05:20→23:01)
[2019-03-07 06:18] LABS: BASOPHILS % (AUTO) 0.2 % (0.0-2.0); EOSINOPHILS % (AUTO) 2.3 % (0.0-6.0); HEMATOCRIT 23 % (33-45); HEMOGLOBIN 7.8 g/dL (11.5-14.8); LYMPHOCYTES # (AUTO) 2.1 /CMM (0.8-4.8); LYMPHOCYTES % (AUTO) 11.2 % (20.0-44.0); MEAN CORPUSCULAR HGB CONC 34 g/dl (31.0-36.0); MEAN CORPUSCULAR VOLUME 97 fL (82-100); MONOCYTES % (AUTO) 5.3 % (2.0-12.0); NEUTROPHILS # (AUTO) 15.2 /CMM (1.8-8.9); PLATELET COUNT (AUTO) 379 /CMM (150-450); RED BLOOD CELL COUNT(AUTO) 2.34 MIL/uL (4.0-5.2); WHITE BLOOD COUNT (AUTO) 18.8 K/uL (4.3-11.0)
[2019-03-07 06:25] LABS: ALANINE AMINOTRANSFERASE 25 U/L (12-78); ALBUMIN 1.9 g/dL (3.4-5.0); ALKALINE PHOSPHATASE 114 U/L (46-116); ASPARTATE AMINOTRANSFERASE 20 U/L (15-37); BILIRUBIN,TOTAL 0.2 mg/dL (0.2-1.0); CALCIUM, SERUM 8.7 mg/dL (8.5-10.1); CARBON DIOXIDE 23 mmol/L (21-32); CHLORIDE 106 mmol/L (98-107); CREATININE 2.7 mg/dL (0.6-1.3); GLUCOSE 88 mg/dL (74-106); POTASSIUM 3.6 mmol/L (3.5-5.1); SODIUM SERUM 140 mmol/L (136-145); TOTAL PROTEIN, SERUM 8.4 g/dL (6.4-8.2); UREA NITROGEN, BLOOD 40 mg/dL (7-18)
--- NOTE | 2019-03-07 06:35 | NUR ---
RN NOTE: RECEIVED A CALL FROM LAB REGARDING PRELIMINARY RESULT OF BLOOD CULTURE. PATIENT IS POSITIVE GRAM COCCI. PATIENT ON ATB VANCO AND MEROPENEM. DR. LEWIS MADE AWARE WITH NO NEW ORDERS.
--- NOTE | 2019-03-07 06:54 | NUR ---
RN CLOSING NOTE: PATIENT IN BED. RESPONSIVE TO VERBAL AND LIGHT TOUCH WITH EYES OPENING SPONTANEOUSLY. NO RESPIRATORY DISTRESS. NO S/S OF PAIN. NO FACIAL GRIMACING. PATIENT IS AFEBRILE. WILL ENDORSE TO AM SHIFT NURSE FOR CONTINUITY OF CARE.
--- NOTE | 2019-03-07 07:05 | NUR ---
RN OPENING NOTE: PATIENT IN BED. NONVERBAL BUT RESPONDS TO VERBAL AND LIGHT TOUCH WITH EYES OPENING SPONTANEOUSLY. NO SOB. NO S/S OF PAIN. ON DAVIDSON CATHETER DRAINING CLEAR YELLOW URINE. ON GT FEEDING AT 30 CC/HR. LAKISHA MIDLINE PATENT AND INTACT RUNNING AT 80 MLS/HR. ALL NEEDS ATTENDED. WILL CONT. TO MONITOR.
--- NOTE | 2019-03-07 07:30 | NUR ---
RN NOTES RECEIVED PATIENT IN BED, A/0X1, TRACH AND VENT DEPENDENT, NOT ON ANY FORM OF DISTRESS, TOLERATING CURRENT VENT SETTINGS. SATING FINE. PATIENT SUCTIONED FOR AIRWAY PATENCY, SECRETION NOTED WHITE TO YELLOWISH, THICK. SR ON TH TELEMONITOR WITH HR ON THE 80. NO INDICATION OF PAIN NOTED AT THIS TIME. IV ACCESS NOTED ON THE L CHEST WALL G [address], DRESSING INTACT. LAKISHA PICC LINE IN PLACE, PATENT WITH ONGOING IVF OF NS AT 80CC/HR. GT IN PLACE, PLACEMENT CONFIRMED BY AUSCULTATION. GTF RUNNING AT 30CC/HR. ABDOMEN DISTENDED. DAVIDSON CATHETER IN PLACE, DRAINING TO YELLOW URINE VIA GRAVITY. HOB KEPT ELEVATED. SAFETY MEASURES OBSERVED AND MAINTAINED. BED LOW AND LOCKED POSITIONED. CALL LIGHT WITHIN REACH. WILL CONTINUE TO MONITOR PATIENT
[2019-03-07 08:00] VITALS: BP_SYST 125; BP_SYST 97; BP_DIAS 76; BP_DIAS 88
[2019-03-07] MEDS: LEVETIRACETAM SOL (5 ML) 100 MG/ML UDC GT SCH ×2 (09:31→21:06)
[2019-03-07] MEDS: PANTOPRAZOLE 40 MG VIAL IV SCH (09:31)
[2019-03-07] MEDS: DOCUSATE SODIUM LIQ 100 MG/10 ML UDC GT SCH (09:31)
[2019-03-07] MEDS: CALCIUM CARBONATE 500 MG TAB.CHEW GT SCH ×2 (09:31→16:48)
[2019-03-07] MEDS: MULTIVIT W/MINERALS 1 TAB TABLET GT SCH (09:32)
[2019-03-07] MEDS: ACIDOPHILUS/BULGARICUS 1 EACH TAB.CHEW GT SCH ×2 (09:32→16:48)
[2019-03-07] MEDS: FERROUS SULFATE UDC 300 MG/5 ML UDC GT SCH ×2 (09:32→16:48)
[2019-03-07] MEDS: OXCARBAZEPINE 150 MG TABLET GT SCH ×2 (09:32→21:06)
[2019-03-07] MEDS: [UNRECOGNIZED DRUG - OTHER] TP SCH ×2 (09:33→21:23)
[2019-03-07] MEDS: Z GUARD REMEDY 4 OZ OINT TP SCH ×2 (09:33→21:45)
[2019-03-07] MEDS: VIT A TP SCH ×2 (09:33→21:23)
[2019-03-07] MEDS: SIMETHICONE 80 MG TAB.CHEW GT SCH ×2 (09:35→21:07)
[2019-03-07 12:00] VITALS: BP 99/77
[2019-03-07 15:57] LABS: IRON, SERUM 21 ug/dl (50-175); TOTAL IRON BINDING CAPACITY 120 ug/dl (250-450)
[2019-03-07 16:00] VITALS: BP 149/76
--- NOTE | 2019-03-07 19:17 | NUR ---
RN NOTES ENDORSED FOR CONTINUITY OF CARE. NOT ON ANY FORM OF DISTRESS. NO SHORTNESS OF BREATH. NO APPARENT SIGN OF ACTIVE BLEEDING. ALL NURSING NEEDS ATTENDED AND MET. SAFETY MEASURES AND ISOLATION IN PLACE AT ALL TIME. CALL LIGHT WITHIN REACH
[2019-03-07 20:00] VITALS: BP 102/67
[2019-03-07 20:24] LABS: OCCULT BLOOD STOOL NEGATIVE (NEGATIVE)
[2019-03-07 20:30] LABS: APPEARANCE,URINE Slightly Cloudy (CLEAR); BILIRUBIN,URINE Negative (NEGATIVE); BLOOD, URINE Moderate Ery/uL (NEGATIVE); COLOR,URINE Yellow (YELLOW); KETONES,URINE Negative (NEGATIVE); LEUKOCYTE ESTERASE ,URINE Large (NEGATIVE); NITRITE, URINE Negative (NEGATIVE); PROTEIN,URINE >=300 mg/dl (NEGATIVE); UGLUCOSE Negative (NEGATIVE); UROBILINOGEN,URINE 0.2 EU/dL (0.2)
[2019-03-07 20:32] LABS: CREATININE, URINE 56.3 MG/DL (30.0-125.0); URINE TOTAL PROTEIN 393.1 mg/dL (0-11.9)
[2019-03-07 20:55] LABS: BACTERIA,URINE 2+ /HPF (None Seen); SQUAMOUS EPITHELIAL CELL,UR Few /HPF (None Seen); WBC,URINE 51-80 /HPF (0-3)
[2019-03-07] MEDS: ASCORBIC ACID 500 MG TABLET GT SCH (21:07)
[2019-03-07 22:24] LABS: EOSINOPHIL,URINE None Seen
[2019-03-07] MEDS: INSULIN GLARGINE, 100 UNIT/ML CARTRIDGE SQ SCH (23:00)
[2019-03-07] MEDS: INSULIN REGULAR, HUMAN 100 UNIT/ML 3 ML VIAL SQ PRN (23:01)
--- NOTE | 2019-03-07 23:05 | NUR ---
RN NOTE: CHECKED PATIENT'S BLOOD SUGAR = 119. NO INSULIN ADMINISTERED BASED ON S/S.
[2019-03-08] VITALS: BP 111/54
[2019-03-08] MEDS: ALBUTEROL FS 2.5 MG/3 ML VIAL.NEB NEB SCH ×4 (01:08→19:10)
[2019-03-08] MEDS: VANCOMYCIN 1 GM in IV D5W 250 ML IV SCH (02:25)
[2019-03-08] MEDS: IV NS 0.9% 1,000 ML IV PRN ×2 (03:30→15:56)
[2019-03-08] MEDS: GLUCERNA 1.2 1,000 ML BOTTLE GT PRN (03:30)
--- NOTE | 2019-03-08 03:35 | NUR ---
RT Pt fariha remains on [facility] vent t/o the night. No weaning or changes at this time. No resp distress noted. sx prn. Trach secure and patent. Addendum: 03/08/19 at 0336 by ASHLI QUEZADA RT Amended: Links added.
[2019-03-08] MEDS: MEROPENEM 1 G in IV NS 0.9% 100 ML IV SCH ×2 (03:36→15:10)
[2019-03-08 04:00] VITALS: BP 128/69
[2019-03-08] MEDS: GABAPENTIN 300 MG CAPSULE GT SCH ×3 (04:51→21:13)
[2019-03-08] MEDS: METOCLOPRAMIDE HCL 10 MG TABLET GT SCH (04:51)
[2019-03-08] MEDS: BLOOD SUGAR DIAGNOSTIC 1 EACH STRIP IN SCH ×4 (05:49→23:36)
[2019-03-08] MEDS: INSULIN REGULAR, HUMAN 100 UNIT/ML 3 ML VIAL SQ PRN ×2 (05:52→23:38)
--- NOTE | 2019-03-08 06:00 | NUR ---
RN NOTE: CHECKED PATIENT'S BLOOD SUGAR = 99. NO INSULIN ADMINISTERED PER S/S.
[2019-03-08 06:08] LABS: BASOPHILS % (AUTO) 0.1 % (0.0-2.0); EOSINOPHILS % (AUTO) 1.6 % (0.0-6.0); HEMATOCRIT 24 % (33-45); LYMPHOCYTES # (AUTO) 1.6 /CMM (0.8-4.8); LYMPHOCYTES % (AUTO) 8.5 % (20.0-44.0); MEAN CORPUSCULAR HGB CONC 33 g/dl (31.0-36.0); MEAN CORPUSCULAR VOLUME 98 fL (82-100); MONOCYTES # (AUTO) 1.2 /CMM (0.1-1.30); MONOCYTES % (AUTO) 6.8 % (2.0-12.0); NEUTROPHILS # (AUTO) 15.2 /CMM (1.8-8.9); PLATELET COUNT (AUTO) 391 /CMM (150-450); RED BLOOD CELL COUNT(AUTO) 2.46 MIL/uL (4.0-5.2); WHITE BLOOD COUNT (AUTO) 18.3 K/uL (4.3-11.0)
[2019-03-08 06:18] LABS: ALBUMIN 1.9 g/dL (3.4-5.0); BILIRUBIN,TOTAL 0.2 mg/dL (0.2-1.0); CREATININE 2.5 mg/dL (0.6-1.3); MAGNESIUM 2.8 mg/dL (1.8-2.4); PHOSPHORUS 4.3 mg/dL (2.5-4.9); POTASSIUM 3.2 mmol/L (3.5-5.1); TOTAL PROTEIN, SERUM 8.5 g/dL (6.4-8.2)
--- NOTE | 2019-03-08 06:30 | NUR ---
RN NOTES, PATIENT IN BED SLEEPING AT THIS TIME, BUT AROUSES TO TACTILE STIMULI, ON MECHANICAL VENTILATOR TOLERATED SETTINGS WELL, NO SOB/ACUTE DISTRESS NOTED, NO SIGNIFICANT CHANGE IN CONDITION DURING THE NIGHT, WILL ENDORSE CONTINUITY OF CARE TO ONCOMING NURSE.
--- NOTE | 2019-03-08 07:36 | NUR ---
RT Pt received trached on the vent with noted settings. Pt is awake and responds to stimuli when sx'd. Vent alarms are set and audible with BVM by bedside. Vent is plugged into red outlet. No respiratory distress noted at this time. Addendum: 03/08/19 at 1913 by MIMI WALKER RT Amended: Links added.
--- NOTE | 2019-03-08 07:43 | NUR ---
RN NOTE: RECEIVED PATIENT IN BED, AWAKE, BUT NONVERBAL. ON CHRONIC VENT-TRACH DEPENDENT SATURATING 100% WITH CURRENT VENT SETTING. BREATHING EVENLY AND UNLABORED. ON FIELD IRRIGATION WORKER SR HR= 82. AFEBRILE. SKIN WARM TO TOUCH AND ABDOMINAL AREA WAS NOTED DISTENDED. ON GT FEEDING OF GLUCERNA 1.2 @ 30ML/HR WITH NO RESIDUAL. GT FEEDING WAS STOPPED AT THIS TIME AND WILL FOLLOW-UP WITH MD REGARDING THE PATIENT'S ABDOMINAL DISTENTION. PENDING WOUND CONSULT. (R) UA MIDLINE NOTED PATENT AND INTACT INFUSING NS@80ML/HR. DAVIDSON CATHETER IN PLACED WITH YELLOW URINE DRAINING TO GRAVITY. BED ALARMED AND LOCKED AT ALL TIMES. ON LOWEST BED POSITION. ON CONTACT ISOLATION FOR MRSA NARES. CALL LIGHT WITHIN REACH AND NEEDS ANTICIPATED.
[2019-03-08 08:00] VITALS: BP 143/82
--- NOTE | 2019-03-08 08:30 | NUR ---
RN NOTE: TOOK PICTURES OF THE PATIENT'S BACK OF THE HEAD (OCCIPITAL AREA), OPEN AREA ON THE GT SITE AND (B) FOOT/TOES AND FILED ON PATIENT'S CHART.
[2019-03-08] MEDS: DOCUSATE SODIUM LIQ 100 MG/10 ML UDC GT SCH (08:37)
--- NOTE | 2019-03-08 08:58 | NUR ---
WOUND CARE CONSULT: PT PRESENTS WITH MULTIPLE SKIN ISSUES PRESENT ON ADMISSION INCLUDING OCCIPITAL SCARRING/DISCOLORATION, DISCOLORATION TO BILATERAL 5TH TOES, OPEN SKIN TO G TUBE SITE AREA, REOPENED STAGE 3 ULCER TO SACRUM EXTENDING TO LEFT BUTTOCK (OVER PREVIOUS SCARRING) WITH SURROUNDING SEVERE FUNGAL RASH, ALL PRESENT ON ADMISSION. RECOMMENDATIONS MADE FOR SKIN PROTECTION AND WOUND CARE. DISCUSSED WITH NURSING STAFF. ABDOMEN NOTED TO BE VERY LARGE. PT NOTED TO BE HAVING VERY LOOSE STOOL. PT ON FIRST STEP [facility]. WILL SEE PRN. TAYLOR IN AGREEMENT WITH PLAN OF CARE. Addendum: 03/08/19 at 0901 by BRI MICHAUD WNDNU Amended: Links added.
--- NOTE | 2019-03-08 09:20 | NUR ---
RN NOTE: DR. LAND PRESENT IN THE UNIT AND MADE HIM AWARE OF THE PATIENT'S ABDOMINAL DISTENTION. VERBAL ORDERS WERE GIVEN. NOTED AND CARRIED OUT.
[2019-03-08] MEDS: FERROUS SULFATE UDC 300 MG/5 ML UDC GT SCH ×2 (09:56→16:04)
[2019-03-08] MEDS: LEVETIRACETAM SOL (5 ML) 100 MG/ML UDC GT SCH ×2 (09:57→21:13)
[2019-03-08] MEDS: ACIDOPHILUS/BULGARICUS 1 EACH TAB.CHEW GT SCH ×2 (09:58→16:04)
[2019-03-08] MEDS: CALCIUM CARBONATE 500 MG TAB.CHEW GT SCH ×2 (09:58→16:04)
[2019-03-08] MEDS: SIMETHICONE 80 MG TAB.CHEW GT SCH ×2 (09:58→21:16)
[2019-03-08] MEDS: MULTIVIT W/MINERALS 1 TAB TABLET GT SCH (09:58)
[2019-03-08] MEDS: OXCARBAZEPINE 150 MG TABLET GT SCH ×2 (09:58→21:13)
[2019-03-08] MEDS: [UNRECOGNIZED DRUG - OTHER] TP SCH ×2 (09:59→21:33)
[2019-03-08] MEDS: VIT A TP SCH ×2 (09:59→21:33)
[2019-03-08] MEDS: CLOTRIMAZOLE/BETAMETASONE DIPROPIONATE 15 GM TUBE TP SCH ×2 (10:00→16:04)
[2019-03-08] MEDS: PANTOPRAZOLE 40 MG VIAL IV SCH (10:00)
[2019-03-08] MEDS: Z GUARD REMEDY 4 OZ OINT TP SCH ×2 (10:00→21:31)
[2019-03-08] MEDS: METOCLOPRAMIDE HCL 10 MG/2 ML VIAL IV SCH ×3 (10:02→23:03)
--- NOTE | 2019-03-08 10:39 | NUR ---
RN NOTE: DR. LAND AND DR. AGUILAR WERE BOTH INFORMED OF THE KUB RESULT. NEW ORDER RECEIVED FROM DR LAND TO KEEP PATIENT NPO EXCEPT MEDS. ORDER NOTED AND CARRIED OUT.
[2019-03-08] MEDS ORDERED: ERYTHROMYCIN BASE (250 MG) 250 MG CAPSULE.DR PO SCH (11:00)
[2019-03-08] MEDS ORDERED: POTASSIUM CHLORIDE 10 MEQ TABLET.SA PO ONE (11:00)
[2019-03-08 12:00] VITALS: BP 97/51
--- NOTE | 2019-03-08 12:00 | NUR ---
RN NOTE: PATIENT WAS PROVIDED WITH THE SCHMIDT FLUSH PER DR. AGUILAR'S ORDER TO RELEASE EXCESS GAS ON THE PATIENT'S ABDOMEN. FLEXISEAL WAS INSERTED FOR THE LIQUID STOOL DRAINAGE. WILL CONTINUE TO MONITOR.
[2019-03-08] MEDS: MUPIROCIN OINT 2% 22 GM TUBE SCH ×2 (12:01→21:30)
[2019-03-08] MEDS: ERYTHROMYCIN ETHYLSUCCINATE 200 MG/5 ML SUSPENSION PO SCH ×3 (12:02→23:03)
[2019-03-08 16:00] VITALS: BP 155/76
--- NOTE | 2019-03-08 19:05 | NUR ---
RN OPENING NOTE: PATIENT IN BED. A&OX1. NONVERBAL. NO RESPIRATORY DISTRESS. NO S/S OF PAIN. NO FACIAL GRIMACING OR MOANING. GT FEEDING CURRENTLY ON HOLD. PATIENT IS NPO EXCEPT MEDS. LAKISHA MIDLINE INTACT AND PATENT RUNNING NS AT 80 MLS/HR. ON SHAREPOINT MANAGER SHOWING SR = 80s. BED IN LOWEST POSITION. SAFETY PRECAUTIONS IMPLEMENTED. ON SEIZURE PRECAUTION WITH PADDED SIDE RAILS. WILL CONT. TO MONITOR FOR CHANGES.
--- NOTE | 2019-03-08 19:30 | NUR ---
RN NOTE: BEDSIDE REPORT WAS GIVEN TO PM SHIFT NURSE FOR CONTINUITY OF CARE. PATIENT WAS ON CONTACT ISOLATION FOR MRSA NARES. DAVIDSON CATHETER IN PLACED WITH YELLOW URINE DRAINING TO GRAVITY AND FLEXISEAL WAS PLACED AND STILL DRAINING WITH WATERY GREENISH BLACK IN COLOR. S/P SCHMIDT FLUSH TODAY PER DR. AGUILAR'S ORDER TO RELEASE THE EXCESSIVE ABDOMINAL GAS. PATIENT'S SISTER KELVIN CALLED AND WANTED TO SPEAK WITH DR. LAND BY TOMORROW. WILL ENDORSE TO PM SHIFT NURSE TO RELAY THE MESSAGE FOR TOMORROW. KELVIN'S NUMBER [phone]. PATIENT ON ASPIRATION AND SEIZURE PRECAUTION.
[2019-03-08 20:00] VITALS: BP 128/62
[2019-03-08] MEDS: ASCORBIC ACID 500 MG TABLET GT SCH (21:13)
[2019-03-08] MEDS: INSULIN GLARGINE, 100 UNIT/ML CARTRIDGE SQ SCH (22:00)
[2019-03-08] MEDS: ONDANSETRON HCL/PF 4 MG/2 ML VIAL IVP PRN (22:56)
--- NOTE | 2019-03-08 23:40 | NUR ---
RN NOTE: CHECKED PATIENT'S BS = 110. NO LANTUS ADMINISTERED DUE TO PATIENT IS NPO EXCEPT MEDS. NO HUMULIN R GIVEN PER SLIDING SCALE.
[2019-03-09] VITALS (7 sets, daily range): BP systolic 115–161; BP diastolic 61–106
[2019-03-09] MEDS: ALBUTEROL FS 2.5 MG/3 ML VIAL.NEB NEB SCH ×4 (00:52→19:18)
[2019-03-09] MEDS: MEROPENEM 1 G in IV NS 0.9% 100 ML IV SCH ×2 (03:26→16:18)
[2019-03-09] MEDS: METOCLOPRAMIDE HCL 10 MG/2 ML VIAL IV SCH ×4 (04:50→22:30)
[2019-03-09] MEDS: IV NS 0.9% 1,000 ML IV PRN ×2 (04:51→23:06)
[2019-03-09] MEDS: GABAPENTIN 300 MG CAPSULE GT SCH ×3 (04:51→21:08)
[2019-03-09] MEDS: ERYTHROMYCIN ETHYLSUCCINATE 200 MG/5 ML SUSPENSION PO SCH ×4 (05:03→23:05)
[2019-03-09] MEDS: BLOOD SUGAR DIAGNOSTIC 1 EACH STRIP IN SCH ×4 (05:13→23:05)
[2019-03-09] MEDS: INSULIN REGULAR, HUMAN 100 UNIT/ML 3 ML VIAL SQ PRN (05:42)
[2019-03-09] MEDS: ONDANSETRON HCL/PF 4 MG/2 ML VIAL IVP PRN ×2 (06:35→12:05)
--- NOTE | 2019-03-09 06:50 | NUR ---
RN NOTES, PATIENT ON MECHANICAL VENTILATOR TOLERATED WELL, NO S/S OF ACUTE DISTRESS/SOB AT THIS TIME, NSR IN THE TELE MONITOR, CONTINUE NPO EXCEPT MEDS, GTF ON HOLD DUE TO ABDOMEN DISTENDED, NOTED WITH SMALL EPISODE OF YELLOW EMESIS AT THIS TIME, AND ZOFRAN ADMINISTERED ORDERED, WILL CONTINUE TO MONITOR CLOSELY AND ENDORSE TO ONCOMING NURSE.
--- NOTE | 2019-03-09 07:10 | NUR ---
RN OPENING NOTES PATIENT IN BED, ASLEEP BUT EASILY AROUSABLE TO TOUCH. NON VERBAL ON VENT, SATING WELL AT 100%. ON TELE MONITOR SR. ON DAVIDSON CATH WITH CLEAR AND YELLOW URINE. HAS FLEXI SEAL, NOTED WITH DARK BROWN LIQUID BM. NPO EXCEPT MEDS DUE TO ABD DISTENTION. PER NOC SHIFT RN, PATIENT HAD 1 EPISODE OF VOMITING, YELLOW COLORED. ZOFRAN WAS ADMINISTERED. HAS RIGHT UA MIDLINE WITH NS AT 80 ML/HR. ALSO HAS LEFT CHEST #22 SL. BED LOCKED AND IN LOW POSITION. CALL LIGHT WITHIN REACH. WILL CONTINUE TO MONITOR
[2019-03-09 07:13] LABS: BASOPHILS % (AUTO) 0.1 % (0.0-2.0); EOSINOPHILS % (AUTO) 0.1 % (0.0-6.0); HEMATOCRIT 31 % (33-45); HEMOGLOBIN 10.3 g/dL (11.5-14.8); LYMPHOCYTES # (AUTO) 1.3 /CMM (0.8-4.8); LYMPHOCYTES % (AUTO) 6.6 % (20.0-44.0); MEAN CORPUSCULAR HGB CONC 33 g/dl (31.0-36.0); MEAN CORPUSCULAR VOLUME 97 fL (82-100); MONOCYTES # (AUTO) 0.9 /CMM (0.1-1.30); MONOCYTES % (AUTO) 4.3 % (2.0-12.0); NEUTROPHILS # (AUTO) 17.7 /CMM (1.8-8.9); NEUTROPHILS % (AUTO) 88.9 % (43.0-81.0); PLATELET COUNT (AUTO) 529 /CMM (150-450); RED BLOOD CELL COUNT(AUTO) 3.17 MIL/uL (4.0-5.2); WHITE BLOOD COUNT (AUTO) 19.9 K/uL (4.3-11.0)
[2019-03-09 08:08] LABS: CALCIUM, SERUM 10.4 mg/dL (8.5-10.1); CREATININE 2.3 mg/dL (0.6-1.3); MAGNESIUM 3.1 mg/dL (1.8-2.4); PHOSPHORUS 4.8 mg/dL (2.5-4.9); POTASSIUM 3.8 mmol/L (3.5-5.1)
--- NOTE | 2019-03-09 08:15 | NUR ---
RN NOTE PATIENT'S BP FROM CABLE RESPOOLER CHECK WAS 161/99. RECHECKED AND SBP WAS 151. WILL GIVE ALL AM MEDS AND CONTINUE TO MONITOR BP CLOSELY
[2019-03-09 08:16] LABS: BAND % (MANUAL) 3 % (0.0-5.0); EOSINOPHILS % (MANUAL) 1 % (0-4); LYMPHOCYTES % (MANUAL) 9 % (16-48); MONOCYTES % (MANUAL) 7 % (0-11.0); NEUTROPHILS % (MANUAL) 80 (42-76)
[2019-03-09] MEDS: LEVETIRACETAM SOL (5 ML) 100 MG/ML UDC GT SCH ×2 (08:43→21:07)
[2019-03-09] MEDS: OXCARBAZEPINE 150 MG TABLET GT SCH ×2 (08:43→21:08)
[2019-03-09] MEDS: ACIDOPHILUS/BULGARICUS 1 EACH TAB.CHEW GT SCH ×2 (08:43→17:18)
[2019-03-09] MEDS: MULTIVIT W/MINERALS 1 TAB TABLET GT SCH (08:43)
[2019-03-09] MEDS: DOCUSATE SODIUM LIQ 100 MG/10 ML UDC GT SCH (08:43)
[2019-03-09] MEDS: FERROUS SULFATE UDC 300 MG/5 ML UDC GT SCH ×2 (08:43→17:18)
[2019-03-09] MEDS: CALCIUM CARBONATE 500 MG TAB.CHEW GT SCH ×2 (08:43→17:18)
[2019-03-09] MEDS: SIMETHICONE 80 MG TAB.CHEW GT SCH ×2 (08:43→21:11)
[2019-03-09] MEDS: PANTOPRAZOLE 40 MG VIAL IV SCH (08:47)
[2019-03-09] MEDS: VANCOMYCIN 0.75 GM in IV D5W 250 ML IV SCH (08:51)
--- NOTE | 2019-03-09 09:00 | NUR ---
RN NOTE VANCO IV DUE AT 0900. LAST VANCO TROUGH YESTERDAY 03/08 WAS 23. ONE DOSE WAS HELD LAST NIGHT AT 0200. PER PHARMACY, OK TO GIVE THIS AM DOSE
--- NOTE | 2019-03-09 09:00 | NUR ---
RN NOTE DR LAND AT BEDSIDE. AWARE THAT PATIENT HAD VOMITED X1 EARLY THIS AM. MD MADE SURE PATIENT ON REGLAN AND HAS A PRN ZOFRAN. CONTINUE NPO EXCEPT MEDS. PATIENT'S ABD STILL DISTENDED. CONTINUE TO MONITOR PER MD
[2019-03-09] MEDS: MUPIROCIN OINT 2% 22 GM TUBE SCH ×2 (09:06→21:08)
[2019-03-09] MEDS: Z GUARD REMEDY 4 OZ OINT TP SCH ×2 (09:06→21:08)
[2019-03-09] MEDS: VIT A TP SCH ×2 (09:07→21:08)
[2019-03-09] MEDS: [UNRECOGNIZED DRUG - OTHER] TP SCH ×2 (09:07→21:08)
--- NOTE | 2019-03-09 10:09 | NUR ---
RN NOTE DR AGUILAR AT BEDSIDE. AWARE ABOUT THE PATIENT'S EPISODE OF VOMITING THIS AM AND PATIENT'S DISTENDED ABD. SHOWED DR AGUILAR ABOUT THE PATIENT'S KUB YESTERDAY. PER , CONTINUE GIVING REGLAN IV Q6H, AND NPO EXCEPT MEDS. ABD HAS TO REST FOR NOW
[2019-03-09] MEDS: CLOTRIMAZOLE/BETAMETASONE DIPROPIONATE 15 GM TUBE TP SCH ×2 (10:27→18:19)
--- NOTE | 2019-03-09 11:38 | NUR ---
RN NOTE BS 140. WILL NOT ADMINISTER INSULIN, PATIENT NPO AT THIS TIME
[2019-03-09 13:07] LABS: PTH, INTACT 78 pg/mL (15-65)
--- NOTE | 2019-03-09 13:23 | NUR ---
RN NOTE PATIENT IS CONSTANTLY VOMITING EVEN WITH REGLAN IV AND ZOFRAN PRN. CN AWARE, WAS TOLD TO CONTACT GI DOCTOR. PER DR LAND, ORDER KUB FOR TODAY SISTER AT BEDSIDE, KELVIN. WANTED TO SPEAK WITH GI. GAVE SISTER'S PHONE NUMBER TO DR LAND. Addendum: 03/09/19 at 8924 by JOSH CANDELARIO RN PER DR LAND, CONNECT TO LIS. ORDER CARRIED OUT ALSO GAVE SISTER'S PHONE NUMBER TO DR AGUILAR. PER , WILL CALL SOON AVAILABLE
[2019-03-09] MEDS: PIPERACILLIN /TAZOBACTAM 2.25 G in IV D5W 50 ML IV SCH ×2 (18:30→23:07)
--- NOTE | 2019-03-09 18:58 | NUR ---
RN CLOSING NOTE PATIENT ASLEEP BUT EASILY AROUSABLE TO TOUCH. ON VENT, SATING 100%. ON LIS, 1000 OUT. GREEN BILE. ON NS AT 80 ML/HR. ALL MEDS GIVEN. HAD MULTIPLE EPISODES OF VOMITING THIS AM BEFORE LIS. KUB DONE. PER MD, CONTINUE TO MONITOR CLOSELY. ON TELE, SR. SISTER WAS AT BEDSIDE EARLIER TODAY. HAS DAVIDSON AND FLEXISEAL. WOUND CARE DONE. REPOSITIONED PER PROTOCOL. NO SIGNS OF ANY PAIN NOR SOB AT THIS TIME. BED LOCKED AND IN LOWEST POSITION. CALL LIGHT WITHIN REACH. WILL ENDORSE TO NOC SHIFT FOR WHIT
[2019-03-09] MEDS: ASCORBIC ACID 500 MG TABLET GT SCH (21:08)
[2019-03-09] MEDS: INSULIN GLARGINE, 100 UNIT/ML CARTRIDGE SQ SCH (22:00)
[2019-03-10 00:05] VITALS: BP 143/81
[2019-03-10] MEDS: ALBUTEROL FS 2.5 MG/3 ML VIAL.NEB NEB SCH ×4 (01:24→19:55)
[2019-03-10 04:04] VITALS: BP 137/70
[2019-03-10] MEDS: METOCLOPRAMIDE HCL 10 MG/2 ML VIAL IV SCH ×4 (04:46→21:42)
[2019-03-10] MEDS: BLOOD SUGAR DIAGNOSTIC 1 EACH STRIP IN SCH ×4 (05:07→23:08)
[2019-03-10] MEDS: GABAPENTIN 300 MG CAPSULE GT SCH ×3 (05:08→21:42)
[2019-03-10] MEDS: ERYTHROMYCIN ETHYLSUCCINATE 200 MG/5 ML SUSPENSION PO SCH ×4 (05:08→23:18)
[2019-03-10] MEDS: PIPERACILLIN /TAZOBACTAM 2.25 G in IV D5W 50 ML IV SCH ×4 (05:17→23:19)
[2019-03-10 06:08] LABS: *SPE A/G RATIO 0.5 (0.7-1.7); *SPE ALBUMIN 2.3 g/dL (2.9-4.4); *SPE ALPHA-1-GLOBULIN 0.4 g/dL (0.0-0.4); *SPE ALPHA-2-GLOBULIN 0.9 g/dL (0.4-1.0); *SPE BETA GLOBULIN 1.3 g/dL (0.7-1.3); *SPE M-SPIKE Not Observed g/dL (Not Observed); *SPEGAMMA GLOBULIN 2.4 g/dL (0.4-1.8)
[2019-03-10 08:00] VITALS: BP 143/83
[2019-03-10 08:02] LABS: BASOPHILS # (AUTO) 0.1 /CMM (0.0-0.2); BASOPHILS % (AUTO) 0.5 % (0.0-2.0); EOSINOPHILS % (AUTO) 3.1 % (0.0-6.0); HEMATOCRIT 26 % (33-45); HEMOGLOBIN 8.8 g/dL (11.5-14.8); LYMPHOCYTES % (AUTO) 12.2 % (20.0-44.0); MEAN CORPUSCULAR HGB CONC 34 g/dl (31.0-36.0); MEAN CORPUSCULAR VOLUME 97 fL (82-100); MONOCYTES # (AUTO) 1.4 /CMM (0.1-1.30); MONOCYTES % (AUTO) 8.7 % (2.0-12.0); NEUTROPHILS # (AUTO) 12.2 /CMM (1.8-8.9); NEUTROPHILS % (AUTO) 75.5 % (43.0-81.0); PLATELET COUNT (AUTO) 483 /CMM (150-450); RED BLOOD CELL COUNT(AUTO) 2.72 MIL/uL (4.0-5.2); WHITE BLOOD COUNT (AUTO) 16.2 K/uL (4.3-11.0)
[2019-03-10 08:54] LABS: ALBUMIN 1.9 g/dL (3.4-5.0); BILIRUBIN,TOTAL 0.5 mg/dL (0.2-1.0); CALCIUM, SERUM 9.5 mg/dL (8.5-10.1); CREATININE 2.4 mg/dL (0.6-1.3); MAGNESIUM 2.6 mg/dL (1.8-2.4); PHOSPHORUS 3.5 mg/dL (2.5-4.9); POTASSIUM 3.4 mmol/L (3.5-5.1); TOTAL PROTEIN, SERUM 8.4 g/dL (6.4-8.2)
[2019-03-10] MEDS: VANCOMYCIN 0.75 GM in IV D5W 250 ML IV SCH (09:00)
[2019-03-10] MEDS: FERROUS SULFATE UDC 300 MG/5 ML UDC GT SCH ×2 (09:37→17:12)
[2019-03-10] MEDS: DOCUSATE SODIUM LIQ 100 MG/10 ML UDC GT SCH (09:37)
[2019-03-10] MEDS: LEVETIRACETAM SOL (5 ML) 100 MG/ML UDC GT SCH ×2 (09:37→21:41)
[2019-03-10] MEDS: MULTIVIT W/MINERALS 1 TAB TABLET GT SCH (09:38)
[2019-03-10] MEDS: OXCARBAZEPINE 150 MG TABLET GT SCH ×2 (09:38→21:42)
[2019-03-10] MEDS: ACIDOPHILUS/BULGARICUS 1 EACH TAB.CHEW GT SCH ×2 (09:38→17:13)
[2019-03-10] MEDS: CALCIUM CARBONATE 500 MG TAB.CHEW GT SCH ×2 (09:38→17:13)
[2019-03-10] MEDS: SIMETHICONE 80 MG TAB.CHEW GT SCH ×2 (09:40→21:42)
[2019-03-10] MEDS: PANTOPRAZOLE 40 MG VIAL IV SCH (09:41)
[2019-03-10] MEDS ORDERED: POTASSIUM CHLORIDE 20 MEQ POWDER PACKET PO SCH (10:00)
[2019-03-10 12:00] VITALS: BP 151/86
--- NOTE | 2019-03-10 12:30 | NUR ---
rn telehealth notes pt's sister reported that pt had a 2 sec seizure. gave pt prn ativan for seizure as md ordered. pt was safe; no injuries noted. airway patent.
[2019-03-10] MEDS: LORAZEPAM 1 MG TABLET GT PRN (12:35)
[2019-03-10] MEDS: CLOTRIMAZOLE/BETAMETASONE DIPROPIONATE 15 GM TUBE TP SCH ×2 (12:45→17:26)
[2019-03-10] MEDS: MUPIROCIN OINT 2% 22 GM TUBE SCH ×2 (12:45→21:44)
[2019-03-10] MEDS: Z GUARD REMEDY 4 OZ OINT TP SCH ×2 (12:46→21:42)
[2019-03-10] MEDS: [UNRECOGNIZED DRUG - OTHER] TP SCH ×2 (12:46→21:44)
[2019-03-10] MEDS: VIT A TP SCH ×2 (12:46→21:44)
[2019-03-10 16:00] VITALS: BP 124/75
[2019-03-10] MEDS: IV NS 0.9% 1,000 ML IV PRN (16:07)
--- NOTE | 2019-03-10 19:30 | NUR ---
SERVICES CLERK NOTE RECEIVED PT AWAKE AND ALERT TO NAME. OPENS EYES AND TRACKS. ON MECH VENT WITH SETTINGS WELL TOLERATED. HOB ELEVATED AND ON ASPIRATION PRECAUTIONS. ISOLATION PRECAUTIONS OBSERVED. GT IN LOW INTERMITTENT SUCTION WITH GREEN OUTPUT NOTED. TELE- SR. DAVIDSON CATHETER AND RECTAL TUBE IN PLACE AND DRAINING BY GRAVITY. WILL CONTINUITY TO MONITOR.
[2019-03-10 20:00] VITALS: BP 135/74
[2019-03-10] MEDS ORDERED: VANCOMYCIN 1 GM in IV D5W 250 ML IV SCH (21:00)
[2019-03-10] MEDS: ASCORBIC ACID 500 MG TABLET GT SCH (21:42)
[2019-03-10] MEDS: SENNOSIDES 8.6 MG TABLET GT SCH (21:42)
[2019-03-10] MEDS: INSULIN GLARGINE, 100 UNIT/ML CARTRIDGE SQ SCH (22:00)
[2019-03-11] VITALS (7 sets, daily range): BP systolic 90–139; BP diastolic 59–69
[2019-03-11] MEDS: ALBUTEROL FS 2.5 MG/3 ML VIAL.NEB NEB SCH ×4 (01:48→20:03)
[2019-03-11] MEDS: METOCLOPRAMIDE HCL 10 MG/2 ML VIAL IV SCH ×4 (03:41→21:26)
[2019-03-11] MEDS: GABAPENTIN 300 MG CAPSULE GT SCH ×3 (05:07→21:17)
[2019-03-11] MEDS: ERYTHROMYCIN ETHYLSUCCINATE 200 MG/5 ML SUSPENSION PO SCH ×3 (05:07→17:03)
[2019-03-11] MEDS: BLOOD SUGAR DIAGNOSTIC 1 EACH STRIP IN SCH ×4 (05:07→22:02)
[2019-03-11] MEDS: PIPERACILLIN /TAZOBACTAM 2.25 G in IV D5W 50 ML IV SCH ×3 (05:09→17:03)
[2019-03-11 06:35] LABS: BASOPHILS # (AUTO) 0.1 /CMM (0.0-0.2); BASOPHILS % (AUTO) 0.4 % (0.0-2.0); EOSINOPHILS % (AUTO) 4.8 % (0.0-6.0); HEMATOCRIT 27 % (33-45); HEMOGLOBIN 8.9 g/dL (11.5-14.8); LYMPHOCYTES # (AUTO) 1.9 /CMM (0.8-4.8); LYMPHOCYTES % (AUTO) 13.8 % (20.0-44.0); MEAN CORPUSCULAR HGB CONC 33 g/dl (31.0-36.0); MEAN CORPUSCULAR VOLUME 98 fL (82-100); MONOCYTES # (AUTO) 1.4 /CMM (0.1-1.30); MONOCYTES % (AUTO) 10.4 % (2.0-12.0); NEUTROPHILS # (AUTO) 9.5 /CMM (1.8-8.9); NEUTROPHILS % (AUTO) 70.6 % (43.0-81.0); PLATELET COUNT (AUTO) 461 /CMM (150-450); RED BLOOD CELL COUNT(AUTO) 2.72 MIL/uL (4.0-5.2); WHITE BLOOD COUNT (AUTO) 13.5 K/uL (4.3-11.0)
--- NOTE | 2019-03-11 06:53 | NUR ---
MINISTER ASSISTANT NOTE ALL NEEDS ATTENDED TO PROMPTLY. REMAINED STABLE DURING SHIFT. VENT SETTINGS WELL TOLERATED. ISOLATION PRECAUTIONS MAINTAINED. REMAINS ON LOW INTERMITTENT SUCTION. PERFORMED ORAL CARE. SUCTIONED NEEDED. REPOSITIONED Q2H. WILL ENDORSE TO NEXT SHIFT FOR CONTINUITY OF CARE.
[2019-03-11 07:17] LABS: CREATININE 2.2 mg/dL (0.6-1.3); MAGNESIUM 2.5 mg/dL (1.8-2.4); PHOSPHORUS 3.8 mg/dL (2.5-4.9); POTASSIUM 3.4 mmol/L (3.5-5.1)
[2019-03-11 07:48] LABS: ALBUMIN 1.9 g/dL (3.4-5.0); BILIRUBIN,TOTAL 0.3 mg/dL (0.2-1.0); TOTAL PROTEIN, SERUM 8.2 g/dL (6.4-8.2)
--- NOTE | 2019-03-11 08:00 | NUR ---
received pt from shift mechanic, alert, does not follow commands, SR, on vent, lungs partially congested, GT to ILS, f/c OK output, rectal tube in, v/s stable, no pain, pt turned and repositioned.
[2019-03-11] MEDS: CALCIUM CARBONATE 500 MG TAB.CHEW GT SCH ×2 (08:35→16:56)
[2019-03-11] MEDS: OXCARBAZEPINE 150 MG TABLET GT SCH ×2 (08:35→21:19)
[2019-03-11] MEDS: DOCUSATE SODIUM LIQ 100 MG/10 ML UDC GT SCH (08:35)
[2019-03-11] MEDS: LEVETIRACETAM SOL (5 ML) 100 MG/ML UDC GT SCH ×2 (08:35→21:16)
[2019-03-11] MEDS: FERROUS SULFATE UDC 300 MG/5 ML UDC GT SCH ×2 (08:35→16:55)
[2019-03-11] MEDS: SIMETHICONE 80 MG TAB.CHEW GT SCH ×2 (08:36→21:17)
[2019-03-11] MEDS: SENNOSIDES 8.6 MG TABLET GT SCH ×2 (08:36→21:18)
[2019-03-11] MEDS: ACIDOPHILUS/BULGARICUS 1 EACH TAB.CHEW GT SCH ×2 (08:36→16:56)
[2019-03-11] MEDS: MULTIVIT W/MINERALS 1 TAB TABLET GT SCH (08:36)
[2019-03-11] MEDS: PANTOPRAZOLE 40 MG VIAL IV SCH (08:41)
[2019-03-11] MEDS: CLOTRIMAZOLE/BETAMETASONE DIPROPIONATE 15 GM TUBE TP SCH ×2 (08:47→16:56)
[2019-03-11] MEDS: MUPIROCIN OINT 2% 22 GM TUBE SCH ×2 (08:47→21:24)
[2019-03-11] MEDS: Z GUARD REMEDY 4 OZ OINT TP SCH ×2 (08:47→21:26)
[2019-03-11] MEDS: [UNRECOGNIZED DRUG - OTHER] TP SCH ×2 (08:48→21:26)
[2019-03-11] MEDS: VIT A TP SCH ×2 (08:48→21:26)
[2019-03-11] MEDS: IV NS 0.9% 1,000 ML IV PRN (09:13)
[2019-03-11] MEDS ORDERED: POTASSIUM CHLORIDE 20 MEQ POWDER PACKET GT SCH (10:30)
[2019-03-11] MEDS: IV 1/2NS 1000 ML 1,000 ML IV PRN (12:47)
--- NOTE | 2019-03-11 17:02 | NUR ---
RT Pt received trach'd via Shiley # 8 XLT. Pt is on ventilator on ordered settings. Hhn tx's given and pt suctioned w no adverse reactions. Pt is stable. No changes throughout shift. Will pass report to district manager primary care sales RT. Addendum: 03/11/19 at 1751 by JULIETH REY RT Amended: Links added.
--- NOTE | 2019-03-11 17:27 | NUR ---
pt is resting in the bed, v/s stable, no pain, pt cleaned, changed and repositioned q2hrs.
--- NOTE | 2019-03-11 20:04 | NUR ---
PT RCVD TRACH SHILEY 8 XLT ON VENT WITH NOTED SETTINGS. PT IS AWAKE , NON VERBAL, RESPONDS TO STIMULI WHEN SUCTIONED . BREATHING TX GIVEN PER MD'S ORDER. NO ADVERSE REACTION NOTED. SUCTIONED SMALL AMOUNT OF WHITE THICK SECRETIONS . VENT ALARMS ARE SET AND AUDIBLE. AMBU BAG AT BEDSIDE. VENT PLUGGED INTO RED OUTLET. CUFF INFLATED. NO RESPIRATORY DISTRESS NOTED AT THIS TIME . WILL CONTINUE TO MONITOR FOR ANY CHANGES.
[2019-03-11] MEDS: ASCORBIC ACID 500 MG TABLET GT SCH (21:22)
[2019-03-11] MEDS: INSULIN GLARGINE, 100 UNIT/ML CARTRIDGE SQ SCH (21:54)
[2019-03-12] VITALS (7 sets, daily range): BP systolic 131–146; BP diastolic 60–76
[2019-03-12] MEDS: PIPERACILLIN /TAZOBACTAM 2.25 G in IV D5W 50 ML IV SCH ×4 (00:06→19:02)
[2019-03-12] MEDS: ERYTHROMYCIN ETHYLSUCCINATE 200 MG/5 ML SUSPENSION PO SCH ×4 (00:06→19:02)
[2019-03-12] MEDS: ALBUTEROL FS 2.5 MG/3 ML VIAL.NEB NEB SCH ×4 (01:42→20:11)
[2019-03-12] MEDS: IV 1/2NS 1000 ML 1,000 ML IV PRN (04:22)
[2019-03-12] MEDS: GABAPENTIN 300 MG CAPSULE GT SCH ×3 (05:06→21:21)
[2019-03-12] MEDS: METOCLOPRAMIDE HCL 10 MG/2 ML VIAL IV SCH ×4 (05:06→22:16)
[2019-03-12] MEDS: BLOOD SUGAR DIAGNOSTIC 1 EACH STRIP IN SCH ×3 (06:26→19:02)
[2019-03-12] MEDS: INSULIN REGULAR, HUMAN 100 UNIT/ML 3 ML VIAL SQ PRN (06:27)
[2019-03-12 08:02] LABS: CALCIUM, SERUM 8.8 mg/dL (8.5-10.1); MAGNESIUM 2.3 mg/dL (1.8-2.4); PHOSPHORUS 4.5 mg/dL (2.5-4.9); POTASSIUM 3.8 mmol/L (3.5-5.1)
[2019-03-12] MEDS: SENNOSIDES 8.6 MG TABLET GT SCH ×2 (09:00→21:20)
[2019-03-12] MEDS: DOCUSATE SODIUM LIQ 100 MG/10 ML UDC GT SCH (09:00)
[2019-03-12 09:19] LABS: BASOPHILS % (AUTO) 0.3 % (0.0-2.0); HEMATOCRIT 28 % (33-45); LYMPHOCYTES # (AUTO) 1.9 /CMM (0.8-4.8); LYMPHOCYTES % (AUTO) 15.3 % (20.0-44.0); MEAN CORPUSCULAR HGB CONC 32 g/dl (31.0-36.0); MEAN CORPUSCULAR VOLUME 101 fL (82-100); MONOCYTES # (AUTO) 1.2 /CMM (0.1-1.30); MONOCYTES % (AUTO) 9.5 % (2.0-12.0); NEUTROPHILS % (AUTO) 70.9 % (43.0-81.0); PLATELET COUNT (AUTO) 447 /CMM (150-450); RED BLOOD CELL COUNT(AUTO) 2.75 MIL/uL (4.0-5.2); WHITE BLOOD COUNT (AUTO) 12.7 K/uL (4.3-11.0)
[2019-03-12] MEDS: CALCIUM CARBONATE 500 MG TAB.CHEW GT SCH ×2 (09:31→16:53)
[2019-03-12] MEDS: ACIDOPHILUS/BULGARICUS 1 EACH TAB.CHEW GT SCH ×2 (09:31→16:53)
[2019-03-12] MEDS: FERROUS SULFATE UDC 300 MG/5 ML UDC GT SCH ×2 (09:31→16:53)
[2019-03-12] MEDS: MULTIVIT W/MINERALS 1 TAB TABLET GT SCH (09:31)
[2019-03-12] MEDS: LEVETIRACETAM SOL (5 ML) 100 MG/ML UDC GT SCH ×2 (09:31→21:42)
[2019-03-12] MEDS: PANTOPRAZOLE 40 MG VIAL IV SCH (09:31)
[2019-03-12] MEDS: SIMETHICONE 80 MG TAB.CHEW GT SCH ×2 (09:35→22:06)
[2019-03-12] MEDS: OXCARBAZEPINE 150 MG TABLET GT SCH ×2 (09:35→21:21)
[2019-03-12] MEDS: MUPIROCIN OINT 2% 22 GM TUBE SCH ×2 (09:37→21:43)
[2019-03-12] MEDS: VIT A TP SCH ×2 (09:37→21:44)
[2019-03-12] MEDS: CLOTRIMAZOLE/BETAMETASONE DIPROPIONATE 15 GM TUBE TP SCH ×2 (09:37→16:53)
[2019-03-12] MEDS: Z GUARD REMEDY 4 OZ OINT TP SCH ×2 (09:37→21:44)
[2019-03-12] MEDS: [UNRECOGNIZED DRUG - OTHER] TP SCH ×2 (09:37→21:44)
[2019-03-12] MEDS ORDERED: IV D5/0.45 NACL 1,000 ML IV ONE (11:30)
--- NOTE | 2019-03-12 18:01 | NUR ---
RT END OF THE SHIFT REPORT, PT. 48 Y OLD FEMALE RECEIVED TRACH'D SHILEY XLT # 8 ON VENT WITH NOTED AC SETTINGS. EQUAL CHEST RISE NOTED B/S BILATERALLY RALES SUX'D FOR MOD. AMT OF WHITE THICK SECRETIONS, NO DISTRESS NOTED T/O DAY. HME CHANGED MEDICAL DIR DONE. TRACH CARE DONE. TX'S GIVEN INLINE Q6 NO ADVERSE REACTION NOTED. VENT PLUGGED INTO RED OUT LET. AMBU BAG AT BEDSIDE. WILL CONTINUE TO MONITOR. REPORT WILL PASS TO PM SHIFT. Addendum: 03/12/19 at 1803 by SHIMA CHILDS RT Amended: Links added.
--- NOTE | 2019-03-12 20:20 | NUR ---
DIRECTOR OF MANAGED CARE OPENING NOTE RECEIVED PATIENT A/O X2 PATIENT IS ABLE TO OPEN EYES AND GRASP HAND AND FOLLOW SIMPLE COMMAND IN TO OPEN MOUTH. PATIENT SHOWS NO SIGNS OF ANY DISTRESS. PATIENT IS ON VENT WITH SHILEY #8 AC 16, TV 550, FI02 30% AND PEEP 5. PATIENT SEEMS TO BE TOLERATING VENT WELL. PATIENT ON THE MONITOR SHOWS SR WITH HR OF 76. PATIENT HAS DAVIDSON AND PATENT WELL A RECTAL TUBE WITH SOME LEAKAGE. HAS A MIDLIINE ON THE [place] WITH D51/2NS RUNNING AT 60ML/HR. ALL SAFETY PRECAUTIONS ARE APPLIED, BED LOCKED IN LOW POSITION, SIDE RAILS UP X2. WILL CONTINUE TO MONITOR PATIENT
[2019-03-12] MEDS: ASCORBIC ACID 500 MG TABLET GT SCH (21:20)
[2019-03-12] MEDS: INSULIN GLARGINE, 100 UNIT/ML CARTRIDGE SQ SCH (22:00)
[2019-03-12] MEDS ORDERED: INSULIN GLARGINE, 100 UNIT/ML CARTRIDGE SQ ONE (22:49)
--- NOTE | 2019-03-12 23:19 | NUR ---
JOINT SPECIAL OPERATIONS NOTE HELD LANTUS INSULIN, PATIENT BS WAS 86 AND WITH NO GTUBE FEEDING. CHARGE NURSE AWARE.
[2019-03-13] VITALS: BP 135/72
[2019-03-13] MEDS: ERYTHROMYCIN ETHYLSUCCINATE 200 MG/5 ML SUSPENSION PO SCH ×4 (00:22→17:29)
[2019-03-13] MEDS: PIPERACILLIN /TAZOBACTAM 2.25 G in IV D5W 50 ML IV SCH ×4 (00:22→17:32)
[2019-03-13] MEDS: BLOOD SUGAR DIAGNOSTIC 1 EACH STRIP IN SCH ×5 (00:58→23:10)
[2019-03-13] MEDS: ALBUTEROL FS 2.5 MG/3 ML VIAL.NEB NEB SCH ×4 (02:23→19:23)
[2019-03-13 04:00] VITALS: BP 125/69
[2019-03-13] MEDS: GABAPENTIN 300 MG CAPSULE GT SCH ×3 (05:16→20:10)
[2019-03-13] MEDS: METOCLOPRAMIDE HCL 10 MG/2 ML VIAL IV SCH ×4 (05:16→22:45)
--- NOTE | 2019-03-13 07:37 | NUR ---
LANDSCAPE FOREMAN OPENING NOTE PATIENT IN BED WITH NO SIGNS OF DISTRESS. PATIENT TOLERATING VENT WITH NO SOB. ALL SAFETY PRECAUTIONS APPLIED. ENDORSED TO MORNING NURSE.
[2019-03-13 07:54] LABS: BASOPHILS % (AUTO) 0.4 % (0.0-2.0); EOSINOPHILS % (AUTO) 3.5 % (0.0-6.0); HEMATOCRIT 28 % (33-45); HEMOGLOBIN 8.7 g/dL (11.5-14.8); LYMPHOCYTES # (AUTO) 1.8 /CMM (0.8-4.8); LYMPHOCYTES % (AUTO) 14.1 % (20.0-44.0); MEAN CORPUSCULAR HGB CONC 31 g/dl (31.0-36.0); MEAN CORPUSCULAR VOLUME 105 fL (82-100); MONOCYTES # (AUTO) 1.1 /CMM (0.1-1.30); MONOCYTES % (AUTO) 8.8 % (2.0-12.0); NEUTROPHILS # (AUTO) 9.3 /CMM (1.8-8.9); NEUTROPHILS % (AUTO) 73.2 % (43.0-81.0); PLATELET COUNT (AUTO) 414 /CMM (150-450); RED BLOOD CELL COUNT(AUTO) 2.68 MIL/uL (4.0-5.2); WHITE BLOOD COUNT (AUTO) 12.7 K/uL (4.3-11.0)
[2019-03-13 08:00] VITALS: BP 111/65
--- NOTE | 2019-03-13 08:00 | NUR ---
TELE1/RN AM SHIFT INITIAL NOTES RECEIVED PT ASLEEP IN BED, OPEN EYES, NON-VERBAL, NO ACUTE CHANGE OF CONDITION OR GRIMACING NOTED. VENT DEPENDENT RATES SET PRESCRIBED, SATURATING @ 100%, RESPIRATIONS EVEN & UNLABORED, SUCTIONED FOR AIRWAY CLEARANCE. ON TELE WITH SINUS RHYTHM, HR 74, IV SITE FLUSHED, PATENT WITH NO S/S OF INFECTION, SL. GT FEEDING HELD AT THIS TIME, ON CONTINUOUS ABDOMINAL DECOMPRESSION D/T ILEUS AND DISTENTION, DAVIDSON CATHETER INTACT WITH YELLOW URINE OUTPUT. RECTAL TUBE INTACT, NO OUTPUT NOTED AT THIS TIME. PT IS COMFORTABLE, SCHEDULED AM MEDS TO BE GIVEN. CL WITHIN REACHED, SAFETY MAINTAINED AND ISOLATION OBSERVED. ON GOING MONITORING.
[2019-03-13 08:08] LABS: CALCIUM, SERUM 8.5 mg/dL (8.5-10.1); PHOSPHORUS 3.9 mg/dL (2.5-4.9); POTASSIUM 3.1 mmol/L (3.5-5.1)
[2019-03-13] MEDS: DOCUSATE SODIUM LIQ 100 MG/10 ML UDC GT SCH (09:30)
[2019-03-13] MEDS: FERROUS SULFATE UDC 300 MG/5 ML UDC GT SCH ×2 (09:30→17:29)
[2019-03-13] MEDS: SIMETHICONE 80 MG TAB.CHEW GT SCH ×2 (09:31→20:10)
[2019-03-13] MEDS: ACIDOPHILUS/BULGARICUS 1 EACH TAB.CHEW GT SCH ×2 (09:31→17:29)
[2019-03-13] MEDS: SENNOSIDES 8.6 MG TABLET GT SCH ×2 (09:31→20:10)
[2019-03-13] MEDS: LEVETIRACETAM SOL (5 ML) 100 MG/ML UDC GT SCH ×2 (09:31→20:10)
[2019-03-13] MEDS: MULTIVIT W/MINERALS 1 TAB TABLET GT SCH (09:32)
[2019-03-13] MEDS: OXCARBAZEPINE 150 MG TABLET GT SCH ×2 (09:32→20:10)
[2019-03-13] MEDS: CALCIUM CARBONATE 500 MG TAB.CHEW GT SCH ×2 (09:33→17:29)
[2019-03-13] MEDS: MUPIROCIN OINT 2% 22 GM TUBE SCH ×2 (09:33→20:10)
[2019-03-13] MEDS: PANTOPRAZOLE 40 MG VIAL IV SCH (09:33)
[2019-03-13] MEDS: CLOTRIMAZOLE/BETAMETASONE DIPROPIONATE 15 GM TUBE TP SCH ×2 (09:34→17:31)
[2019-03-13] MEDS: Z GUARD REMEDY 4 OZ OINT TP SCH ×2 (09:34→20:11)
[2019-03-13] MEDS: VIT A TP SCH ×2 (09:35→20:42)
[2019-03-13] MEDS: [UNRECOGNIZED DRUG - OTHER] TP SCH ×2 (09:35→20:42)
[2019-03-13] MEDS ORDERED: POTASSIUM CL. PREMIX PERIPHER. 50 ML IV SCH (10:39)
[2019-03-13] MEDS: POTASSIUM CL. PREMIX PERIPHER. 50 ML IV SCH ×2 (11:12→13:18)
[2019-03-13 12:00] VITALS: BP 133/79
[2019-03-13 16:00] VITALS: BP_SYST 127; BP_DIAS 92; BP_DIAS 95
--- NOTE | 2019-03-13 18:16 | NUR ---
RT END OF THE SHIFT REPORT, PT. 48 Y OLD FEMALE AWAKE NON RESPONSIVE RECEIVED @0700 AM TRACH'D SHILEY XLT # 8 ON VENT WITH NOTED AC SETTINGS. EQUAL CHEST RISE NOTED B/S BILATERALLY RALES SUX'D FOR MOD. AMT OF WHITE THICK SECRETIONS, NO DISTRESS NOTED T/O DAY. 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 TRACH CARE DONE. TX'S GIVEN INLINE Q6 NO ADVERSE REACTION NOTED. VENT PLUGGED INTO RED OUT LET. AMBU BAG AT BEDSIDE. WILL CONTINUE TO MONITOR. REPORT WILL PASS TO PM SHIFT. Addendum: 03/13/19 at 1817 by SHIMA CHILDS RT Amended: Links added.
--- NOTE | 2019-03-13 19:15 | NUR ---
TELE1/RN AM SHIFT END NOTES ALL NEEDS MET. NO ACUTE CHANGE OF CONDITION NOTED DURING THE SHIFT. PT ENDORSED TO PM NURSE TO CONTINUE CARE, ALSO ENDORSED TO FOLLOW-UP WITH RADIOLOGY FOR KUB AND FOLLOW THROUGH STUDY. CL WITHIN REACHED, SAFETY MAINTAINED AND ISOLATION OBSERVED.
--- NOTE | 2019-03-13 19:30 | NUR ---
HOSPITAL CLINIC ASSISTANT OPENING NOTE RECEIVED PATIENT A/O X1 OPENS EYES, NO SIGNS OF ANY DISTRESS. PATIENT VENT DEPENDANT AND TOLERATING WELL. PATIENT HAS RT UPPER MIDLINE PATENT AND FLUSHING. PATIENT HAS RECTAL AND DAVIDSON AND PATENT. ALL SAFETY PRECAUTIONS ARE APPLIED AND WILL CONTINUE TO MONITOR.
[2019-03-13 20:00] VITALS: BP 137/81
[2019-03-13] MEDS: ASCORBIC ACID 500 MG TABLET GT SCH (20:41)
[2019-03-13] MEDS: INSULIN GLARGINE, 100 UNIT/ML CARTRIDGE SQ SCH (22:00)
[2019-03-14] VITALS (8 sets, daily range): BP systolic 120–147; BP diastolic 53–83
[2019-03-14] MEDS: ERYTHROMYCIN ETHYLSUCCINATE 200 MG/5 ML SUSPENSION PO SCH ×4 (00:31→17:19)
[2019-03-14] MEDS: PIPERACILLIN /TAZOBACTAM 2.25 G in IV D5W 50 ML IV SCH ×4 (00:31→17:40)
[2019-03-14] MEDS: ALBUTEROL FS 2.5 MG/3 ML VIAL.NEB NEB SCH ×4 (00:49→19:41)
[2019-03-14] MEDS: GABAPENTIN 300 MG CAPSULE GT SCH ×3 (05:25→21:46)
[2019-03-14] MEDS: METOCLOPRAMIDE HCL 10 MG/2 ML VIAL IV SCH ×4 (05:25→23:23)
[2019-03-14] MEDS: BLOOD SUGAR DIAGNOSTIC 1 EACH STRIP IN SCH ×3 (06:05→18:59)
[2019-03-14 06:58] LABS: BASOPHILS % (AUTO) 0.4 % (0.0-2.0); EOSINOPHILS % (AUTO) 4.4 % (0.0-6.0); HEMATOCRIT 25 % (33-45); HEMOGLOBIN 8.4 g/dL (11.5-14.8); LYMPHOCYTES # (AUTO) 2.1 /CMM (0.8-4.8); LYMPHOCYTES % (AUTO) 16.1 % (20.0-44.0); MEAN CORPUSCULAR HGB CONC 34 g/dl (31.0-36.0); MEAN CORPUSCULAR VOLUME 96 fL (82-100); MONOCYTES % (AUTO) 7.6 % (2.0-12.0); NEUTROPHILS # (AUTO) 9.4 /CMM (1.8-8.9); NEUTROPHILS % (AUTO) 71.5 % (43.0-81.0); PLATELET COUNT (AUTO) 441 /CMM (150-450); WHITE BLOOD COUNT (AUTO) 13.2 K/uL (4.3-11.0)
--- NOTE | 2019-03-14 07:10 | NUR ---
RN INITIAL NOTE PATIENT IN BED, AWAKE OPENS EYES ONLY NON VERBAL. NO SIGNS OF ANY DISTRESS NOR SOB. GT CONNECTED TO LIS, WITH ~50ml OUTPUT. ABD SOFT, NON TENDER. HAS RIGHT UA MIDLINE ON TKO. ON VENT, SATING WELL AT 100%. ON TELE MONITOR, SR. HAS RECTAL TUBE WITH LIQUID DARK BROWN BM AND DAVIDSON WITH YELLOW AND CLEAR URINE. CURRENTLY NPO EXCEPT MEDS. BED LOCKED AND IN LOWEST POSITION. WILL CONTINUE TO MONITOR
[2019-03-14 07:29] LABS: CALCIUM, SERUM 9.2 mg/dL (8.5-10.1); PHOSPHORUS 4.5 mg/dL (2.5-4.9); POTASSIUM 3.2 mmol/L (3.5-5.1)
--- NOTE | 2019-03-14 07:39 | NUR ---
PACKING ROOM SUPERVISOR CLOSING NOTE PATIENT IN BED WITH NO SIGNS OF ANY DISCOMFORT. TOLERATING TRACH WELL AND SO SIGNS OF DISTRESS. ALL SAFETY PRECAUTIONS APPLIED. ENDORSED PATIENT TO MORNING NURSE.
[2019-03-14] MEDS: DOCUSATE SODIUM LIQ 100 MG/10 ML UDC GT SCH (08:40)
[2019-03-14] MEDS: MULTIVIT W/MINERALS 1 TAB TABLET GT SCH (08:41)
[2019-03-14] MEDS: CALCIUM CARBONATE 500 MG TAB.CHEW GT SCH ×2 (08:41→17:18)
[2019-03-14] MEDS: PANTOPRAZOLE 40 MG VIAL IV SCH (08:41)
[2019-03-14] MEDS: FERROUS SULFATE UDC 300 MG/5 ML UDC GT SCH ×2 (08:41→17:18)
[2019-03-14] MEDS: OXCARBAZEPINE 150 MG TABLET GT SCH ×2 (08:41→21:47)
[2019-03-14] MEDS: SIMETHICONE 80 MG TAB.CHEW GT SCH ×2 (08:41→21:48)
[2019-03-14] MEDS: ACIDOPHILUS/BULGARICUS 1 EACH TAB.CHEW GT SCH ×2 (08:41→17:18)
[2019-03-14] MEDS: LEVETIRACETAM SOL (5 ML) 100 MG/ML UDC GT SCH ×2 (08:41→21:44)
[2019-03-14] MEDS: SENNOSIDES 8.6 MG TABLET GT SCH ×2 (08:41→21:46)
[2019-03-14] MEDS: Z GUARD REMEDY 4 OZ OINT TP SCH ×2 (09:36→21:47)
[2019-03-14] MEDS: [UNRECOGNIZED DRUG - OTHER] TP SCH ×2 (09:37→21:58)
[2019-03-14] MEDS: VIT A TP SCH ×2 (09:37→21:58)
[2019-03-14] MEDS: MUPIROCIN OINT 2% 22 GM TUBE SCH ×2 (09:37→21:47)
[2019-03-14] MEDS: CLOTRIMAZOLE/BETAMETASONE DIPROPIONATE 15 GM TUBE TP SCH ×2 (09:37→17:18)
[2019-03-14] MEDS: POTASSIUM CL. PREMIX PERIPHER. 50 ML IV SCH ×3 (10:58→17:18)
--- NOTE | 2019-03-14 14:34 | NUR ---
RN NOTE TALKED TO SISTER ON PHONE, MCKENZIE. UPDATED ABOUT THE PATIENT'S STATUS.
--- NOTE | 2019-03-14 18:13 | NUR ---
RN NOTE PATIENT'S BS 61. WILL ADMINISTER ZOSYN MIXED WITH D5. WILL RECHECK AFTER ADMINISTRATION Addendum: 03/14/19 at 1924 by JOSH CANDELARIO RN BS 70
--- NOTE | 2019-03-14 18:17 | NUR ---
RT END OF THE SHIFT REPORT, PT. 48 Y OLD FEMALE AWAKE NON RESPONSIVE RECEIVED @0700 AM TRACH'D SHILEY XLT # 8 ON VENT WITH NOTED AC SETTINGS. EQUAL CHEST RISE NOTED B/S BILATERALLY RALES SUX'D FOR MOD. AMT OF WHITE THICK SECRETIONS, NO CHANGES NOR DISTRESS NOTED T/O DAY. HME CHANGED GOVERNMENT PROFESSOR DONE. TRACH CARE DONE. TX'S GIVEN INLINE Q6 NO ADVERSE REACTION NOTED. VENT PLUGGED INTO RED OUT LET. AMBU BAG AT BEDSIDE. WILL CONTINUE TO MONITOR. REPORT WILL PASS TO PM SHIFT. Addendum: 03/14/19 at 1818 by SHIMA CHILDS RT Amended: Links added.
--- NOTE | 2019-03-14 19:24 | NUR ---
RN CLOSING NOTE PATIENT IN BED, OPENS EYES. ALL NEEDS MET. ALL MEDS GIVEN. KCL REPLACED WITH 30 MEQ. NO SIGNS OF ANY PAIN NOR SOB AT THIS TIME. NO INSULIN COVERAGE GIVEN. ON GT LIS WITH 200 ML OUTPUT. DAVIDSON AND RECTAL TUBE INTACT. REPORT GIVEN TO NOC SHIFT FOR WHIT
--- NOTE | 2019-03-14 19:40 | NUR ---
RN OPENING NOTE, PATIENT IN BE, NONVERBAL BUT RESPONSIVE TO TACTILE/VERBAL STIMULI, ON MECHANICAL VENTILATOR, TOLERATED SETTING WELL, NO SOB/ ACUTE DISTRESS NOTED AT THIS TIME, NO S/S OF PAIN OR DISCOMFORT, NSR ON TRIMMING CUTTER, ON LOW INTERMITTING SUCTION, TOLERATED WELL, DAVIDSON CATHETER PATENCY INTACT, DRAINING CLEAR YELLOW URINE, RIGHT UPPER ARM MIDLINE PATENT AND INTACT, BED LOCKED AND LOWEST POSITION, CALL LIGHT WITHIN REACH, WILL CONTINUE TO MONITOR CLOSELY.
--- NOTE | 2019-03-14 20:29 | NUR ---
RECEIVED PT TRACHED ON VENT. NO RESP DISTRESS NOTED. PT TOLERATING VENT SETTINGS. SX'D FOR MOD AMT OF THIN WHITE SECRETIONS. VENT ALARM SET AND AUDIBLE. AMBU BAG AT BED SIDE. VENT PLUGGED INTO RED OUTLET. WILL CONTINUE TO MONITOR. Addendum: 03/14/19 at 2030 by [place] RT Amended: Links added.
[2019-03-14] MEDS: ASCORBIC ACID 500 MG TABLET GT SCH (21:46)
[2019-03-14] MEDS: INSULIN GLARGINE, 100 UNIT/ML CARTRIDGE SQ SCH (22:00)
--- NOTE | 2019-03-14 23:00 | NUR ---
RN NOTES, LANTUS INSULIN MOT ADMINISTERED DUE TO PATIENT NPO WITH GTF ON HOLD WITH BLOOD SUGAR LEVEL 71MG/dL AT THIS TIME.
[2019-03-15] VITALS (7 sets, daily range): BP systolic 112–151; BP diastolic 67–81
[2019-03-15] MEDS: BLOOD SUGAR DIAGNOSTIC 1 EACH STRIP IN SCH ×5 (00:04→23:04)
[2019-03-15] MEDS: PIPERACILLIN /TAZOBACTAM 2.25 G in IV D5W 50 ML IV SCH ×5 (00:09→23:25)
[2019-03-15] MEDS: ERYTHROMYCIN ETHYLSUCCINATE 200 MG/5 ML SUSPENSION PO SCH ×5 (00:09→23:25)
[2019-03-15] MEDS: ALBUTEROL FS 2.5 MG/3 ML VIAL.NEB NEB SCH ×4 (01:35→19:50)
[2019-03-15] MEDS: METOCLOPRAMIDE HCL 10 MG/2 ML VIAL IV SCH ×4 (04:47→21:15)
[2019-03-15] MEDS: GABAPENTIN 300 MG CAPSULE GT SCH ×3 (04:47→21:10)
--- NOTE | 2019-03-15 06:32 | NUR ---
RN NOTES, PATIENT IN BED SLEEPING AT THIS TIME, BUT AROUSES TO TACTILE STIMULI, ON MECHANICAL VENTILATOR TOLERATED SETTINGS WELL, NO SOB/ACUTE DISTRESS NOTED, NO SIGNIFICANT CHANGE IN CONDITION DURING THE NIGHT, NO INSULIN PER SLIDING SCALE COVERAGE GIVEN SIN BLOOD SUGAR IN 70S, AND PATIENT'S GTF ON HOLD, CONTINUE ON LOW INTERMITTENT SUCTION, STOP AFTER MEDS TO PERMIT MEDICATIONS TO BE ABSORBED, PATIENT KEPT DRY AND CLEAN, ALL NEEDS PROVIDED, CALL LIGHT W/I REACH, WILL ENDORSE CONTINUITY OF CARE TO ONCOMING NURSE.
--- NOTE | 2019-03-15 07:35 | NUR ---
FURNITURE REPAIR TECHNICIAN OPENING NOTE, RECEIVED REPORT FROM PM NURSE.PATIENT IN BED. NONVERBAL BUT RESPONSIVE TO TACTILE/VERBAL STIMULI, ON MECHANICAL VENTILATOR, TOLERATED SETTING WELL. NO SOB/ ACUTE DISTRESS NOTED AT THIS TIME. NO S/S OF PAIN OR DISCOMFORT.NSR ON TOUR DIRECTOR WITH HR 71.ON LOW INTERMITTENT GT SUCTION WITH GREEN DRAINAGE. HAS F/C DRAINING CLEAR YELLOW URINE. RIGHT UPPER ARM MIDLINE PATENT AND INTACT.RECTAL TUBE IS INTACT AND DRAINING LIQUID GREENISH BROWN STOOL. BED LOCKED AND LOWEST POSITION. CALL LIGHT WITHIN REACH.SRX3. WILL CONTINUE TO MONITOR.
[2019-03-15] MEDS: IV D5/0.45 NACL 1,000 ML IV PRN (08:09)
[2019-03-15] MEDS: FERROUS SULFATE UDC 300 MG/5 ML UDC GT SCH ×2 (08:10→16:15)
[2019-03-15] MEDS: ACIDOPHILUS/BULGARICUS 1 EACH TAB.CHEW GT SCH ×2 (08:11→16:16)
[2019-03-15] MEDS: PANTOPRAZOLE 40 MG VIAL IV SCH (08:11)
[2019-03-15] MEDS: MULTIVIT W/MINERALS 1 TAB TABLET GT SCH (08:11)
[2019-03-15] MEDS: SENNOSIDES 8.6 MG TABLET GT SCH ×2 (08:11→21:10)
[2019-03-15] MEDS: OXCARBAZEPINE 150 MG TABLET GT SCH ×2 (08:11→21:11)
[2019-03-15] MEDS: SIMETHICONE 80 MG TAB.CHEW GT SCH ×2 (08:11→21:34)
[2019-03-15] MEDS: LEVETIRACETAM SOL (5 ML) 100 MG/ML UDC GT SCH ×2 (08:11→21:10)
[2019-03-15] MEDS: DOCUSATE SODIUM LIQ 100 MG/10 ML UDC GT SCH (08:11)
[2019-03-15] MEDS: CALCIUM CARBONATE 500 MG TAB.CHEW GT SCH ×2 (08:11→16:15)
[2019-03-15] MEDS: MUPIROCIN OINT 2% 22 GM TUBE SCH ×2 (08:12→21:11)
[2019-03-15] MEDS: Z GUARD REMEDY 4 OZ OINT TP SCH ×2 (08:12→21:12)
[2019-03-15] MEDS: CLOTRIMAZOLE/BETAMETASONE DIPROPIONATE 15 GM TUBE TP SCH ×2 (08:13→16:16)
[2019-03-15] MEDS: VIT A TP SCH ×2 (09:07→21:11)
[2019-03-15] MEDS: [UNRECOGNIZED DRUG - OTHER] TP SCH ×2 (09:07→21:11)
[2019-03-15] MEDS ORDERED: DIATR MEGLU/DIATRIZOATE SODIUM 120 ML BOTTLE (GASTROGRAPHIN) ONE (10:45)
--- NOTE | 2019-03-15 15:56 | NUR ---
RN SUCTION OUT THE CONTRAST AFTER THE 2HR IMAGE, CONSULTED THE IN HOUSE RADIOLOGIST AND HE TOLD ME TO DO ANOTHER XRAY AFTER 1 HOUR THEN CALL HIM AGAIN IF HES STILL IN THE HOSPITAL IF NOT CALL [facility].
--- NOTE | 2019-03-15 16:01 | NUR ---
REGARDING THE SMALL BOWEL, THE RADIOLOGIST TOLD ME NOT TO GIVE CONTRAST ANYMORE.
--- NOTE | 2019-03-15 18:33 | NUR ---
RT END OF THE SHIFT REPORT, PT. 48 Y OLD FEMALE AWAKE NON RESPONSIVE RECEIVED @0700 AM TRACH'D SHILEY XLT # 8 ON VENT WITH NOTED AC SETTINGS. EQUAL CHEST RISE NOTED B/S BILATERALLY RALES SUX'D FOR MOD. AMT OF WHITE THICK SECRETIONS, NO CHANGES NOR DISTRESS NOTED T/O DAY. HME CHANGED MILK BOTTLING MACHINE OPERATOR DONE. TRACH CARE DONE. TX'S GIVEN INLINE Q6 NO ADVERSE REACTION NOTED. VENT PLUGGED INTO RED OUT LET. AMBU BAG AT BEDSIDE. WILL CONTINUE TO MONITOR. REPORT WILL PASS TO PM SHIFT. Addendum: 03/15/19 at 1833 by SHIMA CHILDS RT Amended: Links added.
--- NOTE | 2019-03-15 18:57 | NUR ---
MDS RN CLOSING NOTE, PATIENT IN BED. NONVERBAL BUT RESPONSIVE TO TACTILE/VERBAL STIMULI, TRACKS.ON MECHANICAL VENTILATOR, TOLERATED SETTING WELL. NO SOB/ ACUTE DISTRESS NOTED AT THIS TIME. NO S/S OF PAIN OR DISCOMFORT.NSR ON FISHERIES MANAGER WITH HR 68.ON LOW INTERMITTENT GT SUCTION WITH YELLOW DRAINAGE. HAS F/C DRAINING CLEAR YELLOW URINE. RIGHT UPPER ARM MIDLINE PATENT AND INTACT.DRESSING CHANGE DONE.RECTAL TUBE IS INTACT AND DRAINING LIQUID GREENISH BROWN STOOL. BED LOCKED AND LOWEST POSITION. CALL LIGHT WITHIN REACH.SRX3. SEEN BY PRIMARY DOCTOR WITH NNO.WAITING FOR X RAY RESULT ABDOMEN.WILL ENDORSE TO PM NURSE FOR WHIT.
--- NOTE | 2019-03-15 19:40 | NUR ---
RN OPENING NOTE, PATIENT IN BED NONVERBAL BUT RESPONSIVE TO TACTILE/VERBAL STIMULI, ON MECHANICAL VENTILATOR, TOLERATED SETTING WELL, NO SOB/ ACUTE DISTRESS NOTED AT THIS TIME, NO S/S OF PAIN OR DISCOMFORT, NSR ON CHIPPER OPERATOR WITH HR IN THE 80S AT THIS TIME, CONTINUE ON LOW INTERMITTING SUCTION, TOLERATED WELL, DAVIDSON CATHETER IN PLACED PATENCY INTACT, DRAINING CLEAR YELLOW URINE, RIGHT UPPER ARM MIDLINE PATENT AND INTACT, BED LOCKED AND LOWEST POSITION, CALL LIGHT WITHIN REACH, WILL CONTINUE TO MONITOR CLOSELY.
[2019-03-15] MEDS: ASCORBIC ACID 500 MG TABLET GT SCH (21:10)
[2019-03-15] MEDS: HEPARIN SODIUM, PORCINE 5000 UNITS/1 ML VIAL SQ SCH (21:15)
[2019-03-15] MEDS: INSULIN GLARGINE, 100 UNIT/ML CARTRIDGE SQ SCH (22:00)
--- NOTE | 2019-03-15 22:59 | NUR ---
RN NOTES, LANTUS INSULIN NOT ADMINISTERED DUE TO PATIENT NPO WITH GTF ON HOLD WITH BLOOD SUGAR LEVEL 84MG/dL AT THIS TIME.
[2019-03-16] VITALS: BP 127/65
[2019-03-16] MEDS: ALBUTEROL FS 2.5 MG/3 ML VIAL.NEB NEB SCH ×4 (01:27→20:25)
[2019-03-16 04:00] VITALS: BP 128/76
[2019-03-16] MEDS: GABAPENTIN 300 MG CAPSULE GT SCH ×3 (04:33→21:05)
[2019-03-16] MEDS: METOCLOPRAMIDE HCL 10 MG/2 ML VIAL IV SCH ×4 (04:34→22:40)
[2019-03-16] MEDS: PIPERACILLIN /TAZOBACTAM 2.25 G in IV D5W 50 ML IV SCH ×4 (05:00→23:10)
[2019-03-16] MEDS: ERYTHROMYCIN ETHYLSUCCINATE 200 MG/5 ML SUSPENSION PO SCH ×4 (05:00→23:10)
[2019-03-16] MEDS: BLOOD SUGAR DIAGNOSTIC 1 EACH STRIP IN SCH ×4 (05:36→23:03)
--- NOTE | 2019-03-16 06:36 | NUR ---
RN NOTES, PATIENT IN BED SLEEPING AT THIS TIME, BUT AROUSES TO TACTILE STIMULI, ON MECHANICAL VENTILATOR TOLERATED SETTINGS WELL, NO SOB/ACUTE DISTRESS NOTED, NO SIGNIFICANT CHANGE IN CONDITION DURING THE NIGHT, GTF ON HOLD, CONTINUE ON LOW INTERMITTENT GASTRIC SUCTION, 120ML COLLECTED ALL NIGHT, STOP AFTER MEDS TO PERMIT MEDICATIONS TO BE ABSORBED, DRY AND CLEAN AND WELL REPOSITIONED, OFFLOADING EXTREMITIES, ALL NEEDS PROVIDED, CALL LIGHT W/I REACH, WILL ENDORSE CONTINUITY OF CARE TO ONCOMING NURSE.
[2019-03-16 07:06] LABS: BASOPHILS # (AUTO) 0.1 /CMM (0.0-0.2); BASOPHILS % (AUTO) 0.5 % (0.0-2.0); EOSINOPHILS % (AUTO) 3.3 % (0.0-6.0); HEMATOCRIT 23 % (33-45); HEMOGLOBIN 7.7 g/dL (11.5-14.8); MEAN CORPUSCULAR HGB CONC 34 g/dl (31.0-36.0); MEAN CORPUSCULAR VOLUME 96 fL (82-100); MONOCYTES # (AUTO) 0.7 /CMM (0.1-1.30); MONOCYTES % (AUTO) 6.1 % (2.0-12.0); NEUTROPHILS # (AUTO) 8.6 /CMM (1.8-8.9); NEUTROPHILS % (AUTO) 73.1 % (43.0-81.0); PLATELET COUNT (AUTO) 441 /CMM (150-450); RED BLOOD CELL COUNT(AUTO) 2.37 MIL/uL (4.0-5.2); WHITE BLOOD COUNT (AUTO) 11.8 K/uL (4.3-11.0)
[2019-03-16 07:18] LABS: ALBUMIN 2.2 g/dL (3.4-5.0); BILIRUBIN,TOTAL 0.4 mg/dL (0.2-1.0); CALCIUM, SERUM 8.7 mg/dL (8.5-10.1); CREATININE 2.1 mg/dL (0.6-1.3); MAGNESIUM 1.8 mg/dL (1.8-2.4); PHOSPHORUS 4.3 mg/dL (2.5-4.9); TOTAL PROTEIN, SERUM 8.4 g/dL (6.4-8.2)
[2019-03-16 07:35] LABS: POTASSIUM 2.7 mmol/L (3.5-5.1)
--- NOTE | 2019-03-16 07:36 | NUR ---
RECEIVED CALL FROM [employer] REGARDING CRIT POTASSIUM.
[2019-03-16 08:00] VITALS: BP 105/61
[2019-03-16] MEDS: OXCARBAZEPINE 150 MG TABLET GT SCH ×2 (08:13→21:07)
[2019-03-16] MEDS: PANTOPRAZOLE 40 MG VIAL IV SCH (08:14)
[2019-03-16] MEDS: LEVETIRACETAM SOL (5 ML) 100 MG/ML UDC GT SCH ×2 (08:14→21:04)
[2019-03-16] MEDS: CALCIUM CARBONATE 500 MG TAB.CHEW GT SCH ×2 (08:14→17:32)
[2019-03-16] MEDS: SENNOSIDES 8.6 MG TABLET GT SCH ×2 (08:14→21:05)
[2019-03-16] MEDS: SIMETHICONE 80 MG TAB.CHEW GT SCH ×2 (08:14→22:23)
[2019-03-16] MEDS: FERROUS SULFATE UDC 300 MG/5 ML UDC GT SCH ×2 (08:14→17:31)
[2019-03-16] MEDS: DOCUSATE SODIUM LIQ 100 MG/10 ML UDC GT SCH ×3 (08:14→09:00)
[2019-03-16] MEDS: ACIDOPHILUS/BULGARICUS 1 EACH TAB.CHEW GT SCH ×2 (08:14→17:32)
[2019-03-16] MEDS: MULTIVIT W/MINERALS 1 TAB TABLET GT SCH (08:14)
[2019-03-16] MEDS: VIT A TP SCH ×2 (08:16→21:08)
[2019-03-16] MEDS: Z GUARD REMEDY 4 OZ OINT TP SCH ×2 (08:16→21:08)
[2019-03-16] MEDS: [UNRECOGNIZED DRUG - OTHER] TP SCH ×2 (08:16→21:08)
[2019-03-16] MEDS: CLOTRIMAZOLE/BETAMETASONE DIPROPIONATE 15 GM TUBE TP SCH ×2 (08:16→17:32)
[2019-03-16] MEDS: MUPIROCIN OINT 2% 22 GM TUBE SCH ×2 (08:17→21:08)
--- NOTE | 2019-03-16 09:35 | NUR ---
RECEIVED CALL FROM MD VALADEZ, HEPARIN OK TO GIVE, NO ACTIVE BLEEDING SOURCE NOTED + SEE CRIT LAB DOCUMENTATION
[2019-03-16] MEDS: IV D5/0.45 NACL 1,000 ML IV PRN (09:40)
[2019-03-16] MEDS: HEPARIN SODIUM, PORCINE 5000 UNITS/1 ML VIAL SQ SCH ×2 (09:42→21:20)
--- NOTE | 2019-03-16 10:02 | NUR ---
PER DR. MCGOWAN, START GTF @20mL/HR. AWARE OF POSSIBLE ILEUS Addendum: 03/16/19 at 1999 by KENDRA NEUMANN RN in error: 10ml/hr
[2019-03-16] MEDS ORDERED: GLUCERNA 1.2 1,000 ML BOTTLE GT PRN (10:30)
[2019-03-16] MEDS: POTASSIUM CL. PREMIX PERIPHER. 50 ML IV SCH ×8 (10:55→20:30)
[2019-03-16 12:00] VITALS: BP 126/61
[2019-03-16 16:00] VITALS: BP 121/69
--- NOTE | 2019-03-16 18:00 | NUR ---
MANUFACTURING SOFTWARE ENGINEER CLOSING NOTES PATIENT NONVERBAL, OBTUNDED, ATTACHED TO [facility] VENT. DOES NOT TRACK, ABLE TO SOFTLY SQUEEZE FINGERS WITH LEFT HAND ON COMMAND. TOLERATES CURRENT VENT SETTINGS, ATTACHED TO PULSE OX, ALARM AUDIBLE. SPO2 100%. TELE MONITOR ATTACHED, SINUS RHYTHM 80s. LAKISHA MIDLINE INTACT, NO S/S INFILTRATION. INFUSING D51/2 NS @50mL/HR. THIS AM, GT WAS CONNECTED TO LOW INTERMITTENT SUCTION, WITH GREEN GASTRIC DRAINAGE. ABDOMEN NOTED TO BE DISTENDED. GTF STARTED @10mL/HR @[address] MCGOWAN WHO IS AWARE OF POSS ILEUS. GT SITE CONFIRMED VIA AUSCULTATION. GASTRIC RESIDUAL NOTED TO BE 20mL AT 1745. WOUND CARE COMPLETED. ALL MEDS GIVEN WITH EXCEPTION OF 2 BAGS OF K+, ENDORSED TO NIGHTSHIFT.
--- NOTE | 2019-03-16 20:25 | NUR ---
PT RCVD TRACH SHILEY 8 XLT ON VENT WITH NOTED SETTINGS. PT IS AWAKE , NON VERBAL, RESPONDS TO STIMULI WHEN SUCTIONED . BREATHING TX GIVEN PER MD'S ORDER. NO ADVERSE REACTION NOTED. SUCTIONED MODERATE AMOUNT OF WHITE THICK SECRETIONS . VENT ALARMS ARE SET AND AUDIBLE. AMBU BAG AT BEDSIDE. VENT PLUGGED INTO RED OUTLET. CUFF INFLATED. NO RESPIRATORY DISTRESS NOTED AT THIS TIME . WILL CONTINUE TO MONITOR THE PT FOR ANY CHANGES.
[2019-03-16] MEDS: LORAZEPAM 1 MG TABLET GT PRN (21:04)
[2019-03-16] MEDS: INSULIN GLARGINE, 100 UNIT/ML CARTRIDGE SQ SCH (22:00)
--- NOTE | 2019-03-16 22:15 | NUR ---
RN NOTES REPORT RECEIVED FROM BRIANNA TRIMBLE. PATIENT NONVERBAL, OBTUNDED, ATTACHED TO [facility] VENT. TOLERATING CURRENT VENT SETTINGS TELE MONITOR ATTACHED, SINUS RHYTHM 73. LAKISHA MIDLINE INTACT, NO S/S INFILTRATION. INFUSING D51/2 NS @50mL/HR. GTF FEEDING @10mL/HR WITH NO RESIDUALS. DAVIDSON CATHETER IN PLACE, DRAINING WELL. FLEXI-SEAL IN PLACE. WILL CONTINUE TO MONITOR ACCORDINGLY
[2019-03-16] MEDS: ASCORBIC ACID 500 MG TABLET GT SCH (22:23)
[2019-03-16] MEDS: INSULIN REGULAR, HUMAN 100 UNIT/ML 3 ML VIAL SQ PRN (23:03)
--- NOTE | 2019-03-16 23:04 | NUR ---
RN NOTES BSL CHECKED- 107MG/DL. LANTUS NOT GIVEN AND NO REGULAR INSULIN COVERAGE GIVEN PER SLIDING SCALE
[2019-03-17] VITALS: BP 116/74
--- NOTE | 2019-03-17 00:05 | NUR ---
BRIANNA NOTES URINE SAMPLE COLLECTED Addendum: 03/17/19 at 0245 by RAVIN FUCHS RN ADDITIONAL NOTED DISCARDED. U/A NOT NEEDED- ALREADY OBTAINED
[2019-03-17] MEDS: ALBUTEROL FS 2.5 MG/3 ML VIAL.NEB NEB SCH ×3 (01:39→13:05)
--- NOTE | 2019-03-17 02:00 | NUR ---
RN NOTES GTF RESIDUAL CHECKED- NO RESIDUAL NOTED
[2019-03-17 04:00] VITALS: BP 103/70
[2019-03-17] MEDS: METOCLOPRAMIDE HCL 10 MG/2 ML VIAL IV SCH ×3 (04:21→17:24)
[2019-03-17] MEDS: GABAPENTIN 300 MG CAPSULE GT SCH ×2 (04:21→12:23)
--- NOTE | 2019-03-17 04:30 | NUR ---
RN NOTES GTF RESIDUAL CHECKED- 15ML
[2019-03-17] MEDS: IV D5/0.45 NACL 1,000 ML IV PRN (04:40)
[2019-03-17] MEDS: ERYTHROMYCIN ETHYLSUCCINATE 200 MG/5 ML SUSPENSION PO SCH ×3 (05:10→17:29)
[2019-03-17] MEDS: PIPERACILLIN /TAZOBACTAM 2.25 G in IV D5W 50 ML IV SCH ×3 (05:10→17:24)
[2019-03-17] MEDS: BLOOD SUGAR DIAGNOSTIC 1 EACH STRIP IN SCH ×3 (05:38→17:25)
[2019-03-17] MEDS: INSULIN REGULAR, HUMAN 100 UNIT/ML 3 ML VIAL SQ PRN (05:38)
--- NOTE | 2019-03-17 05:39 | NUR ---
RN NOTES BSL CHECKED- 88MG/DL. NO INSULIN COVERAGE PER SLIDING SCALE
[2019-03-17 06:29] LABS: BASOPHILS # (AUTO) 0.1 /CMM (0.0-0.2); BASOPHILS % (AUTO) 0.5 % (0.0-2.0); EOSINOPHILS % (AUTO) 2.7 % (0.0-6.0); HEMATOCRIT 22 % (33-45); HEMOGLOBIN 7.3 g/dL (11.5-14.8); LYMPHOCYTES # (AUTO) 3.1 /CMM (0.8-4.8); LYMPHOCYTES % (AUTO) 18.5 % (20.0-44.0); MEAN CORPUSCULAR HGB CONC 33 g/dl (31.0-36.0); MEAN CORPUSCULAR VOLUME 97 fL (82-100); MONOCYTES # (AUTO) 0.9 /CMM (0.1-1.30); MONOCYTES % (AUTO) 5.5 % (2.0-12.0); NEUTROPHILS # (AUTO) 12.3 /CMM (1.8-8.9); NEUTROPHILS % (AUTO) 72.8 % (43.0-81.0); PLATELET COUNT (AUTO) 448 /CMM (150-450); WHITE BLOOD COUNT (AUTO) 16.9 K/uL (4.3-11.0)
[2019-03-17 06:39] LABS: CALCIUM, SERUM 9.1 mg/dL (8.5-10.1); CREATININE 2.2 mg/dL (0.6-1.3); POTASSIUM 3.9 mmol/L (3.5-5.1)
--- NOTE | 2019-03-17 06:56 | NUR ---
ROLL CONTOUR GRINDER CLOSING NOTES PATIENT NON-VERBAL, OBTUNDED, ATTACHED TO [facility] VENT- TOLERATING CURRENT VENT SETTINGS, ATTACHED TO PULSE OX, ALARM AUDIBLE. SPO2 100%. TELE MONITOR ATTACHED READING SINUS RHYTHM 66. LAKISHA MIDLINE INTACT, NO S/S INFILTRATION. INFUSING D51/2 NS AT 50mL/HR. GTF RUNNING AT 10mL/HR WOUND CARE COMPLETED. ALL MEDS GIVEN. TURNED AND REPOSITION. FLEXI-SEAL IN PLACE. DAVIDSON CATH IN PLACE- DRAINED 600ML OF CLEAR YELLOW URINE. SAFETY MEASURES IN PLACE. ISOLATION PRECAUTIONS MAINTAINED. WILL ENDORSE WHIT TO ONCOMING RN
--- NOTE | 2019-03-17 07:05 | NUR ---
BRANCH LENDING OFFICER OPENING PATIENT NON-VERBAL, OBTUNDED, ATTACHED TO [facility] VENT- TOLERATING CURRENT VENT SETTINGS,NO RESPIRATORY DISTRESS, ATTACHED TO PULSE OX, ALARM AUDIBLE. SPO2 100%. TELE MONITOR ATTACHED READING SINUS RHYTHM 62. LAKISHA MIDLINE INTACT, NO S/S INFILTRATION. INFUSING D51/2 NS AT 50mL/HR. GTF RUNNING AT 10mL/HR. FLEXI-SEAL IN PLACE. DAVIDSON CATH IN PLACE- DRAINING CLEAR YELLOW URINE. SEIZURE PRECAUTIONS IN PLACE. WILL CONT TO MONITOR
[2019-03-17 08:00] VITALS: BP 118/70
[2019-03-17] MEDS: HEPARIN SODIUM, PORCINE 5000 UNITS/1 ML VIAL SQ SCH (09:00)
[2019-03-17] MEDS: DOCUSATE SODIUM LIQ 100 MG/10 ML UDC GT SCH (09:00)
[2019-03-17] MEDS: LEVETIRACETAM SOL (5 ML) 100 MG/ML UDC GT SCH (09:14)
[2019-03-17] MEDS: FERROUS SULFATE UDC 300 MG/5 ML UDC GT SCH ×2 (09:14→17:24)
[2019-03-17] MEDS: VIT A TP SCH (09:15)
[2019-03-17] MEDS: OXCARBAZEPINE 150 MG TABLET GT SCH (09:15)
[2019-03-17] MEDS: PANTOPRAZOLE 40 MG VIAL IV SCH (09:15)
[2019-03-17] MEDS: CALCIUM CARBONATE 500 MG TAB.CHEW GT SCH ×2 (09:15→17:24)
[2019-03-17] MEDS: ACIDOPHILUS/BULGARICUS 1 EACH TAB.CHEW GT SCH ×2 (09:15→17:24)
[2019-03-17] MEDS: MULTIVIT W/MINERALS 1 TAB TABLET GT SCH (09:15)
[2019-03-17] MEDS: SENNOSIDES 8.6 MG TABLET GT SCH (09:15)
[2019-03-17] MEDS: [UNRECOGNIZED DRUG - OTHER] TP SCH (09:15)
[2019-03-17] MEDS: MUPIROCIN OINT 2% 22 GM TUBE SCH (09:16)
[2019-03-17] MEDS: CLOTRIMAZOLE/BETAMETASONE DIPROPIONATE 15 GM TUBE TP SCH ×2 (09:16→17:25)
[2019-03-17] MEDS: Z GUARD REMEDY 4 OZ OINT TP SCH (09:16)
[2019-03-17] MEDS: SIMETHICONE 80 MG TAB.CHEW GT SCH (09:19)
[2019-03-17] MEDS ORDERED: PIPE2.254 IV (12:08)
[2019-03-17] MEDS ORDERED: MUPI22OI7 (12:08)
[2019-03-17] MEDS ORDERED: FLUC200P12 IV (12:08)
[2019-03-17] MEDS ORDERED: FLUCONAZOLE IN NS 100 MG in PREMIX 1 EA IV SCH ×2 (13:00)
[2019-03-17 14:10] VITALS: BP 110/69
[2019-03-17 14:46] VITALS: BP 113/64
[2019-03-17 15:00] VITALS: BP 108/55
[2019-03-17 16:41] LABS: OCCULT BLOOD STOOL NEGATIVE (NEGATIVE)
[2019-03-17] MEDS: LORAZEPAM 1 MG TABLET GT PRN (17:24)
[2019-03-17] MEDS ORDERED: INFLUENZA VACCINE 2019-20 0.5 ML DISP.SYRIN IM ONE (18:00)
[2019-03-17] MEDS ORDERED: FLUCONAZOLE (100 MG) 100 MG TABLET PO SCH (19:00)
== END 2019-03-17 19:00 | disposition short-term general hospital (02) | DRG 720 ==
LOC: ER 00:10 → TELE-TD 02:16 → TELE1 03-08 11:24
PROVIDERS: ADMIT Nurse Practitioner Acute Care; ATTEND Hospitalist
PROC: 05H933Z Insertion of Infusion Device into Right Brachial Vein, Percutaneous Approach (ICD-10-PCS; principal; 2019-03-06)
PROC: 30233N1 Transfusion of Nonautologous Red Blood Cells into Peripheral Vein, Percutaneous Approach (ICD-10-PCS; principal; 2019-03-06)
PROC: 5A1955Z Respiratory Ventilation, Greater than 96 Consecutive Hours (ICD-10-PCS; principal; 2019-03-06)
DX: A41.9 Sepsis, unspecified organism (principal); N17.0 Acute kidney failure with tubular necrosis; Z99.11 Dependence on respirator [ventilator] status; G93.40 Encephalopathy, unspecified; J18.9 Pneumonia, unspecified organism; J96.10 Chronic respiratory failure, unspecified whether with hypoxia or hypercapnia; K56.609 Unspecified intestinal obstruction, unspecified as to partial versus complete obstruction; E87.2 Acidosis; Z93.0 Tracheostomy status; E11.22 Type 2 diabetes mellitus with diabetic chronic kidney disease; R13.10 Dysphagia, unspecified; D53.9 Nutritional anemia, unspecified; G40.909 Epilepsy, unspecified, not intractable, without status epilepticus; N39.0 Urinary tract infection, site not specified; I12.9 Hypertensive chronic kidney disease with stage 1 through stage 4 chronic kidney disease, or unspecified chronic kidney disease; E78.5 Hyperlipidemia, unspecified; D63.1 Anemia in chronic kidney disease; F09 Unspecified mental disorder due to known physiological condition; G82.20 Paraplegia, unspecified; Z93.1 Gastrostomy status; Z87.442 Personal history of urinary calculi; Z87.440 Personal history of urinary (tract) infections; Z79.899 Other long term (current) drug therapy; Z79.82 Long term (current) use of aspirin; Z79.4 Long term (current) use of insulin; Z91.048 Other nonmedicinal substance allergy status; Z79.51 Long term (current) use of inhaled steroids; F79 Unspecified intellectual disabilities; I25.2 Old myocardial infarction; V89.2XXS Person injured in unspecified motor-vehicle accident, traffic, sequela; J98.11 Atelectasis; K56.7 Ileus, unspecified; E87.6 Hypokalemia; E87.0 Hyperosmolality and hypernatremia; K21.9 Gastro-esophageal reflux disease without esophagitis; N18.4 Chronic kidney disease, stage 4 (severe); N20.0 Calculus of kidney; K80.20 Calculus of gallbladder without cholecystitis without obstruction; Z74.01 Bed confinement status; N13.9 Obstructive and reflux uropathy, unspecified; D25.9 Leiomyoma of uterus, unspecified; N83.9 Noninflammatory disorder of ovary, fallopian tube and broad ligament, unspecified; Y95 Nosocomial condition
CPT/HCPCS: 31720; 36415; 71045-TC; 74018; 74250-TC; 76700-TC; 76770-TC; 80048-TC; 80053-TC; 80076-TC; 80202-TC; 81000-TC; 82272-TC; 82550-TC; 82570-TC; 82962-TC; 83540-TC; 83605-TC; 83735-TC; 83970; 84100-TC; 84155; 84155-TC; 84165; 84300-TC; 84484-TC; 85025-TC; 85027-TC; 85730-TC; 86850-TC; 86921-TC; 87040-TC; 87081-TC; 87086-TC; 87186-TC; 94003-TC; 94760-TC; A4216; A4623; A6253; A6403; A7526; C9113; G0378; J1450; J1644; J1815; J1953; J2185; J2405; J2543; J2765; J3370; J3480; J3490; J7030; J7040; J7050; J7060; J8597; P9016-BL; Q2036; Q9963

== ENCOUNTER 2019-03-17 12:16 | Inpatient (IN) | payer MEDICAID ==
[~2019-03-17] VITALS: Ht 170.2 cm; Wt 74.8 kg
[~2019-03-17 12:16] MED LIST changes: +ALBU2.5V38 IH; -ALBUT2 NEB; +AMIK250V8 IV; -ASPI-1169 GT; -ASPI-1169 PO; +BISA10SU11 RC; +BLOO-668 IN; -CLOT15CR35 TP; +DEXL60CA3 GT; +DEXT50DI8 IV; -FAMO20TA8 GT; +FERR300L GT; +FLUC200P12 IV; +GABA600T12 GT; +HYDR1SOL TP; +INSU100V7 SQ; +LORA1TAB GT; -LORA2VIA11 IV; -MERO500V IV; +METO5SOL2 GT; -MULT-24 GT; +MULT-447 GT; +NUT.237L30 GT; -Nut.tx.gluc.intoler,Lac-Fr,Soy GT; -OXCA150T13 GT; +OXCA600T5 GT; -PANT40TA2 GT; -PHEN50VI4 IV; +PIPE2.254 IV; +POVI480S2 TP; +SIME40DR2 GT; -TOBR40VI2 INH; -TOBR40VI2 XX; -TOPI25TA GT; -VANC125C11 PO; +VITA56.7 TP
--- NOTE | 2019-03-17 19:30 | NUR ---
Patient female 48 y/o admitted from [facility] under the care of Dr. Luis.Dx chronic respiratory failure.DM,Encephalopaty,seizures disorder.Ventilator with prescribed settings,GT,Rectal tube flexi seal intact.Right upper arm midline.Medications orders verified with .Gertrude [place] ordered to dc Zosyn and start Diflucan 100mg daily x 7 days for UTI(yeast).Sister Beckie notified that patient is back to .Will continue to monitor.
[2019-03-17 20:32] VITALS: BP 128/79
[2019-03-17] MEDS ORDERED: HYDROGEN PEROXIDE 480 ML BOTTLE TP PRN (21:00)
[2019-03-17] MEDS ORDERED: ACETAMINOPHEN 650 MG/20 ML UDC- SA PATIENTS-PAIN ONLY GT PRN (21:00)
[2019-03-17] MEDS ORDERED: GABAPENTIN 300 MG CAPSULE GT SCH (21:13)
[2019-03-17] MEDS ORDERED: DEXTROSE 50%-WATER 50 ML DISP.SYRIN IV PRN (21:30)
[2019-03-17] MEDS ORDERED: ACETAMINOPHEN 650 MG/20 ML UDC- SA PATIENTS-FEVER ONLY GT PRN (21:30)
[2019-03-17] MEDS ORDERED: LORAZEPAM INJ 2 MG/ML VIAL IVP PRN (21:30)
[2019-03-17] MEDS ORDERED: BISACODYL SUPP (10 MG) 10 MG/SUPP.RECT SUPP.RECT RC PRN ×2 (21:30)
[2019-03-17] MEDS ORDERED: ONDANSETRON HCL/PF - ER 4 MG/2 ML VIAL IVP PRN (21:30)
[2019-03-17] MEDS ORDERED: LORAZEPAM 1 MG TABLET GT PRN (21:30)
[2019-03-17] MEDS: HYDROGEN PEROXIDE 480 ML BOTTLE TP SCH (21:42)
[2019-03-17] MEDS: IV D5/0.45 NACL 1,000 ML IV PRN (21:52)
[2019-03-17] MEDS: GABAPENTIN 250 MG/5 ML SOLUTION GT SCH (21:58)
[2019-03-17] MEDS: LEVETIRACETAM SOL (5 ML) 100 MG/ML UDC GT SCH (21:58)
[2019-03-17] MEDS: TRILEPTAL GT SCH (21:58)
[2019-03-17] MEDS: SENNOSIDES 8.6 MG TABLET GT SCH (21:58)
[2019-03-17] MEDS ORDERED: GLUCERNA 1.2 1,000 ML BOTTLE GT PRN (22:00)
[2019-03-17] MEDS ORDERED: INSULIN GLARGINE, 100 UNIT/ML CARTRIDGE SQ SCH (22:00)
--- NOTE | 2019-03-17 22:00 | NUR ---
Pt Gt feeding started Glucerna 1.2 20ml/hr for now and increased as tolerated until goal of 65ml/hr met.No residual @ this time.D 5% 0.45 NS 50 ml/hr for hydration running until further order.On contact isolation for MRSA nares on Bactroban ointment q 12 hrs x 7 days.HOB elevated at all times.All needs provided.Will continue to monitor.
[2019-03-17] MEDS: SIMETHICONE SUSP 40 MG/0.6 ML BOTTLE GT SCH (22:05)
[2019-03-17] MEDS: METOCLOPRAMIDE HCL 10 MG TABLET GT SCH (22:14)
[2019-03-17] MEDS: HEPARIN SODIUM, PORCINE 5000 UNITS/1 ML VIAL SQ SCH (22:15)
[2019-03-18] MEDS: ERYTHROMYCIN BASE (250 MG) 250 MG CAPSULE.DR PO SCH ×3 (00:22→12:46)
[2019-03-18] MEDS: BLOOD SUGAR DIAGNOSTIC 1 EACH STRIP IN SCH ×4 (00:22→17:35)
[2019-03-18] MEDS: INSULIN REGULAR, HUMAN 100 UNIT/ML 3 ML VIAL SQ PRN ×3 (00:23→18:11)
[2019-03-18 00:48] VITALS: BP 116/74
[2019-03-18] MEDS: ALBUTEROL FS 2.5 MG/3 ML VIAL.NEB NEB SCH ×4 (01:06→19:38)
[2019-03-18] MEDS ORDERED: GLUCERNA 1.2 1,000 ML BOTTLE GT PRN (02:30)
[2019-03-18] MEDS: METOCLOPRAMIDE HCL 10 MG TABLET GT SCH ×2 (05:43→17:35)
[2019-03-18] MEDS: GABAPENTIN 250 MG/5 ML SOLUTION GT SCH ×3 (05:43→21:27)
[2019-03-18] MEDS ORDERED: DEXILANT 30 MG GT SCH (06:00)
[2019-03-18 07:56] VITALS: BP 126/69
[2019-03-18] MEDS: CALCIUM CARBONATE 500 MG TAB.CHEW GT SCH ×2 (09:00→17:34)
[2019-03-18] MEDS ORDERED: PANTOPRAZOLE 40 MG/PACK PACK GT SCH (09:00)
[2019-03-18] MEDS: SENNOSIDES 8.6 MG TABLET GT SCH ×2 (09:00→21:00)
[2019-03-18] MEDS: Z GUARD REMEDY 4 OZ OINT TP SCH ×3 (09:00→21:29)
[2019-03-18] MEDS: SIMETHICONE SUSP 40 MG/0.6 ML BOTTLE GT SCH ×2 (09:00→21:27)
[2019-03-18] MEDS: MULTIVIT W/MINERALS 1 TAB TABLET GT SCH (09:00)
[2019-03-18] MEDS: DOCUSATE SODIUM LIQ 100 MG/10 ML UDC GT SCH (09:00)
[2019-03-18] MEDS: FERROUS SULFATE - FOR SA ONLY 330 MG/7.5 ML UDC GT SCH ×2 (09:00→17:34)
[2019-03-18] MEDS: VITAMINS A AND D 56.7 GM TUBE TP SCH ×2 (09:00→21:29)
[2019-03-18] MEDS: ACIDOPHILUS/BULGARICUS 1 EACH TAB.CHEW GT SCH ×2 (09:00→17:34)
[2019-03-18] MEDS: TRILEPTAL GT SCH ×2 (09:00→21:27)
[2019-03-18] MEDS: MUPIROCIN OINT 2% 22 GM TUBE SCH ×2 (09:00→21:28)
[2019-03-18] MEDS: LEVETIRACETAM SOL (5 ML) 100 MG/ML UDC GT SCH ×2 (09:00→21:27)
[2019-03-18] MEDS: FLUCONAZOLE (100 MG) 100 MG TABLET GT SCH (09:00)
[2019-03-18] MEDS: HYDROGEN PEROXIDE 480 ML BOTTLE TP SCH ×2 (09:08→21:31)
--- NOTE | 2019-03-18 09:56 | NUR ---
SW contacted patients responsible republican / sister, Beckie Chu [phone] to schedule a time to fill out New Admission paperwork and invite family to todays Plan of Care Conference happening from 12:30-1:30pm in the activities room. Call went to voicemail and STEPHEN relayed above stated information and left call back number.
[2019-03-18] MEDS: HEPARIN SODIUM, PORCINE 5000 UNITS/1 ML VIAL SQ SCH ×2 (10:25→21:32)
[2019-03-18] MEDS ORDERED: METOCLOPRAMIDE HCL 10 MG TABLET GT SCH (12:00)
--- NOTE | 2019-03-18 14:00 | NUR ---
INTERDISCIPLINARY TEAM CONFERENCE (IDT) was held today. Resident's sister Beckie at bedside, Dr. Felix rounded before the meeting and updated her of the plan of care including current orders. Beckie decided she will no longer attend the meeting as she is already informed. Dr. Felix and the interdisciplinary team reviewed the current plan of care in detail. Orders as well as treatment and medications were reviewed. Informed MD that patient's BS has been below 100, current feeding rate at 30cc/hr and receiving IVF of D51/2 NS at 50cc/hr. new order given to increase GT feeding as tolerated in increments of 10cc/hr daily up to maximum of 65cc/hr. and to DC IVF once patient is tolerating 50 cc/hr of GT feeding. Lantus decreased to 10 units. Resident's sister informed of above orders.
--- NOTE | 2019-03-18 14:15 | NUR ---
March INTERDISCIPLINARY PLAN OF CARE CONFERENCE was held today. The patients conservator, Beckie Chu [phone] did not attend as she spoke to Dr. Felix about the plan of care before the meeting initiated and is informed of new orders. Charge nurse discussed pt.s readmittance to [facility] on 02/15/19 ; UTI Tx ; GT feeding orders ; and Lantus decreased to 10 units. Please see other disciplines IDT notes for further details. Dr. Felix and Interdisciplinary team discussed the plan of care in detail. Current orders as well as treatments and medications were reviewed.
--- NOTE | 2019-03-18 15:01 | NUR ---
Intake Paperwork: Patient Admitted to [facility] on March at 7:30pm. Line Up Machine Operator met with the resident's sister, Beckie Chu [phone] today 03/18/19 to complete initial admission paperwork (Patient Right's Acknowledgement, Documentation of Preferred Intensity of Care, Conditions of Admission, [facility] Agreement, and Voluntary Prior Express Consent form). SW provided patient with a copy of the Bill of Rights and patient information guide. Beckie Chu wishes the resident remain Full Code (CPR with maximum treatment). STEPHEN also completed the initial psychosocial assessment with Beckie as patient is non-communicative. Admission paperwork was placed into the resident's chart.Per Beckie, she is the patients conservator and will provide [facility] with a copy of the conservatorship paperwork. STEPHEN provided Beckie with a copy of all Intake paperwork.
[2019-03-18] MEDS: IV D5/0.45 NACL 1,000 ML IV PRN ×2 (17:00→19:28)
[2019-03-18] MEDS ORDERED: ONDANSETRON 4 MG TAB.RAPDIS GT PRN (17:00)
[2019-03-18] MEDS: ERYTHROMYCIN ETHYLSUCCINATE 200 MG/5 ML SUSPENSION GT SCH (17:34)
[2019-03-18] MEDS ORDERED: METOCLOPRAMIDE HCL 10 MG/2 ML VIAL IV SCH (18:00)
--- NOTE | 2019-03-18 18:10 | NUR ---
RT PATIENT WAS RECEIVED ON CONTINUOUS VENT SUPPORT ON NOTED VENT SETTINGS.ALARMS ARE SET AND AUDIBLE.AIRWAY PATENT AND SECURED. PATIENT STABLE AND TOLERATED CURRENT VENT SETTINGS.WILL CONTINUE TO MONITOR. Addendum: 03/18/19 at 1810 by DIEGO BRADY RT Amended: Links added.
[2019-03-18 20:25] VITALS: BP 121/74
[2019-03-18] MEDS: CLOTRIMAZOLE/BETAMETASONE DIPROPIONATE 15 GM TUBE TP SCH (21:28)
[2019-03-18] MEDS: ASCORBIC ACID 500 MG TABLET GT SCH (21:28)
[2019-03-18] MEDS: INSULIN GLARGINE, 100 UNIT/ML CARTRIDGE SQ SCH (22:28)
[2019-03-19 00:05] VITALS: BP 149/83
[2019-03-19] MEDS: METOCLOPRAMIDE HCL 10 MG TABLET GT SCH ×5 (00:30→23:02)
[2019-03-19] MEDS: ERYTHROMYCIN ETHYLSUCCINATE 200 MG/5 ML SUSPENSION GT SCH ×5 (00:30→23:02)
[2019-03-19] MEDS: INSULIN REGULAR, HUMAN 100 UNIT/ML 3 ML VIAL SQ PRN ×5 (00:30→23:32)
[2019-03-19] MEDS: BLOOD SUGAR DIAGNOSTIC 1 EACH STRIP IN SCH ×5 (00:30→23:02)
[2019-03-19] MEDS: ALBUTEROL FS 2.5 MG/3 ML VIAL.NEB NEB SCH ×4 (00:42→19:56)
[2019-03-19] MEDS: GLUCERNA 1.2 1,000 ML BOTTLE GT PRN (05:27)
[2019-03-19] MEDS: PANTOPRAZOLE 40 MG/PACK PACK GT SCH (05:27)
[2019-03-19] MEDS: GABAPENTIN 250 MG/5 ML SOLUTION GT SCH ×3 (05:27→21:00)
[2019-03-19 06:30] VITALS: BP 133/87
[2019-03-19 08:22] VITALS: BP 148/98
[2019-03-19] MEDS: DOCUSATE SODIUM LIQ 100 MG/10 ML UDC GT SCH (08:58)
[2019-03-19] MEDS: FLUCONAZOLE (100 MG) 100 MG TABLET GT SCH (08:58)
[2019-03-19] MEDS: ACIDOPHILUS/BULGARICUS 1 EACH TAB.CHEW GT SCH ×2 (08:58→17:46)
[2019-03-19] MEDS: LEVETIRACETAM SOL (5 ML) 100 MG/ML UDC GT SCH ×2 (08:58→21:00)
[2019-03-19] MEDS: SIMETHICONE SUSP 40 MG/0.6 ML BOTTLE GT SCH ×2 (08:58→21:00)
[2019-03-19] MEDS: FERROUS SULFATE - FOR SA ONLY 330 MG/7.5 ML UDC GT SCH ×2 (08:58→17:46)
[2019-03-19] MEDS: TRILEPTAL GT SCH ×2 (08:58→21:00)
[2019-03-19] MEDS: CALCIUM CARBONATE 500 MG TAB.CHEW GT SCH ×2 (08:59→17:46)
[2019-03-19] MEDS: MULTIVIT W/MINERALS 1 TAB TABLET GT SCH (08:59)
[2019-03-19] MEDS: MUPIROCIN OINT 2% 22 GM TUBE SCH ×2 (08:59→21:00)
[2019-03-19] MEDS: SENNOSIDES 8.6 MG TABLET GT SCH ×2 (08:59→21:00)
[2019-03-19] MEDS: HEPARIN SODIUM, PORCINE 5000 UNITS/1 ML VIAL SQ SCH ×2 (09:00→21:00)
[2019-03-19] MEDS: VITAMINS A AND D 56.7 GM TUBE TP SCH ×2 (09:02→21:00)
[2019-03-19] MEDS: Z GUARD REMEDY 4 OZ OINT TP SCH ×4 (09:02→21:00)
[2019-03-19] MEDS: CLOTRIMAZOLE/BETAMETASONE DIPROPIONATE 15 GM TUBE TP SCH ×2 (09:02→21:00)
[2019-03-19] MEDS: HYDROGEN PEROXIDE 480 ML BOTTLE TP SCH ×2 (09:35→21:00)
[2019-03-19] MEDS: IV D5/0.45 NACL 1,000 ML IV PRN (10:27)
--- NOTE | 2019-03-19 16:07 | NUR ---
RT NOTES TRACH TUBE IN PLACE, PATENT, AND SECURED WITH TRACH TIE. ALARMS ON AND AUDIBLE. VENT PLUGGED IN TO RED OUTLET. AMBU BAG AND BACK UP TRACH BY THE BEDSIDE. NO SIGNS OF RESP DISTRESS AT THIS TIME. Addendum: 03/19/19 at 1608 by ADRIÁN THOMAS RT Amended: Links added.
[2019-03-19 20:25] VITALS: BP 143/76
[2019-03-19] MEDS: ASCORBIC ACID 500 MG TABLET GT SCH (21:00)
[2019-03-19] MEDS: INSULIN GLARGINE, 100 UNIT/ML CARTRIDGE SQ SCH (22:26)
--- NOTE | 2019-03-20 00:23 | NUR ---
Pt rec'd trached on [facility] vent on AC mode. No resp distress or sob noted. Pt sx'd for thick mod amt of pale yellow secretions. Trach is patent and secured. Alarms are set and audible. Vent plugged into red outlet. Ambu bag bedside. Will continue to monitor. Addendum: 03/20/19 at 0024 by LADAN WICK RT Amended: Links added.
--- NOTE | 2019-03-20 00:30 | NUR ---
FEEDING HELD FOR ONE HOUR DUE TO RESIDUAL OF 120 ML.
[2019-03-20] MEDS: ALBUTEROL FS 2.5 MG/3 ML VIAL.NEB NEB SCH ×4 (01:27→19:18)
[2019-03-20] MEDS: PANTOPRAZOLE 40 MG/PACK PACK GT SCH (05:58)
[2019-03-20] MEDS: GABAPENTIN 250 MG/5 ML SOLUTION GT SCH ×3 (05:58→20:02)
[2019-03-20] MEDS: ERYTHROMYCIN ETHYLSUCCINATE 200 MG/5 ML SUSPENSION GT SCH ×3 (05:58→17:49)
[2019-03-20] MEDS: INSULIN REGULAR, HUMAN 100 UNIT/ML 3 ML VIAL SQ PRN (05:59)
[2019-03-20] MEDS: METOCLOPRAMIDE HCL 10 MG TABLET GT SCH ×3 (05:59→17:49)
[2019-03-20] MEDS: BLOOD SUGAR DIAGNOSTIC 1 EACH STRIP IN SCH ×3 (05:59→17:49)
[2019-03-20] MEDS: IV D5/0.45 NACL 1,000 ML IV PRN (06:32)
[2019-03-20 08:19] VITALS: BP 133/88
[2019-03-20] MEDS: SIMETHICONE SUSP 40 MG/0.6 ML BOTTLE GT SCH ×2 (09:00→20:01)
[2019-03-20] MEDS: MULTIVIT W/MINERALS 1 TAB TABLET GT SCH (09:00)
[2019-03-20] MEDS: LEVETIRACETAM SOL (5 ML) 100 MG/ML UDC GT SCH ×2 (09:00→20:01)
[2019-03-20] MEDS: HEPARIN SODIUM, PORCINE 5000 UNITS/1 ML VIAL SQ SCH ×2 (09:00→20:06)
[2019-03-20] MEDS: DOCUSATE SODIUM LIQ 100 MG/10 ML UDC GT SCH (09:00)
[2019-03-20] MEDS: Z GUARD REMEDY 4 OZ OINT TP SCH ×4 (09:00→20:06)
[2019-03-20] MEDS: HYDROGEN PEROXIDE 480 ML BOTTLE TP SCH ×2 (09:00→21:07)
[2019-03-20] MEDS: CLOTRIMAZOLE/BETAMETASONE DIPROPIONATE 15 GM TUBE TP SCH ×2 (09:00→20:06)
[2019-03-20] MEDS: TRILEPTAL GT SCH ×2 (09:00→20:03)
[2019-03-20] MEDS: FLUCONAZOLE (100 MG) 100 MG TABLET GT SCH (09:00)
[2019-03-20] MEDS: ACIDOPHILUS/BULGARICUS 1 EACH TAB.CHEW GT SCH ×2 (09:00→16:33)
[2019-03-20] MEDS: SENNOSIDES 8.6 MG TABLET GT SCH ×2 (09:00→20:03)
[2019-03-20] MEDS: FERROUS SULFATE - FOR SA ONLY 330 MG/7.5 ML UDC GT SCH ×2 (09:00→16:33)
[2019-03-20] MEDS: CALCIUM CARBONATE 500 MG TAB.CHEW GT SCH ×2 (09:00→16:33)
[2019-03-20] MEDS: MUPIROCIN OINT 2% 22 GM TUBE SCH ×2 (09:00→20:04)
[2019-03-20] MEDS: VITAMINS A AND D 56.7 GM TUBE TP SCH ×2 (09:00→20:06)
--- NOTE | 2019-03-20 15:00 | NUR ---
Patient kept on gt feeding (glucerna) at 40 cc/hr at this time, has a GT residual of 100 ml at this time, no nausea and vomiting noted. Abdomen soft to touch and not distended. Currently on IV fluid of D5 1/2 NS at 50 ml/hr. Patients' sister came and stayed with patient, patient responsive to her sister. Patient closely monitored.
--- NOTE | 2019-03-20 16:00 | NUR ---
Pharmacist Ramses called and asked to place lab order of oxcarbazepine (trileptal) level arvin in am. Noted and carried out.
[2019-03-20] MEDS: GLUCERNA 1.2 1,000 ML BOTTLE GT PRN (16:33)
--- NOTE | 2019-03-20 18:52 | NUR ---
Rechecked GT residual , 0 residual, abdomen soft to touch and not distended, feeding tolerating well, no nausea and vomiting . GT feeding increased to 50ml/hr. IV fluid discontinued per MD ordered to discontinue IV once GT feeding reached 50ml/hr. Patient closely monitored.
[2019-03-20] MEDS: ASCORBIC ACID 500 MG TABLET GT SCH (20:03)
[2019-03-20 20:28] VITALS: BP 143/73
[2019-03-20] MEDS: INSULIN GLARGINE, 100 UNIT/ML CARTRIDGE SQ SCH (21:42)
[2019-03-21] MEDS: METOCLOPRAMIDE HCL 10 MG TABLET GT SCH ×5 (00:13→23:15)
[2019-03-21] MEDS: ERYTHROMYCIN ETHYLSUCCINATE 200 MG/5 ML SUSPENSION GT SCH ×5 (00:13→23:15)
[2019-03-21] MEDS: BLOOD SUGAR DIAGNOSTIC 1 EACH STRIP IN SCH ×5 (00:13→23:15)
[2019-03-21] MEDS: INSULIN REGULAR, HUMAN 100 UNIT/ML 3 ML VIAL SQ PRN ×5 (00:14→23:15)
[2019-03-21] MEDS: ALBUTEROL FS 2.5 MG/3 ML VIAL.NEB NEB SCH ×4 (01:31→20:20)
[2019-03-21] MEDS: GABAPENTIN 250 MG/5 ML SOLUTION GT SCH ×3 (05:06→20:22)
[2019-03-21] MEDS: PANTOPRAZOLE 40 MG/PACK PACK GT SCH (05:08)
--- NOTE | 2019-03-21 05:28 | NUR ---
RT PATIENT WAS RECEIVED ON CONTINUOUS VENT SUPPORT ON NOTED VENT SETTINGS.ALARMS ARE SET AND AUDIBLE.AIRWAY PATENT AND SECURED. PATIENT STABLE THROUGHOUT THE SHIFT.WILL CONTINUE TO MONITOR. Addendum: 03/21/19 at 0530 by DIEGO BRADY RT Amended: Links added.
[2019-03-21 07:47] VITALS: BP 109/51
[2019-03-21 08:03] LABS: BASOPHILS # (AUTO) 0.1 /CMM (0.0-0.2); BASOPHILS % (AUTO) 0.7 % (0.0-2.0); EOSINOPHILS % (AUTO) 6.7 % (0.0-6.0); HEMATOCRIT 26 % (33-45); HEMOGLOBIN 8.6 g/dL (11.5-14.8); LYMPHOCYTES # (AUTO) 2.4 /CMM (0.8-4.8); LYMPHOCYTES % (AUTO) 16.3 % (20.0-44.0); MEAN CORPUSCULAR HGB CONC 33 g/dl (31.0-36.0); MEAN CORPUSCULAR VOLUME 95 fL (82-100); MONOCYTES # (AUTO) 1.5 /CMM (0.1-1.30); MONOCYTES % (AUTO) 10.4 % (2.0-12.0); NEUTROPHILS # (AUTO) 9.6 /CMM (1.8-8.9); NEUTROPHILS % (AUTO) 65.9 % (43.0-81.0); PLATELET COUNT (AUTO) 406 /CMM (150-450); RED BLOOD CELL COUNT(AUTO) 2.76 MIL/uL (4.0-5.2); WHITE BLOOD COUNT (AUTO) 14.6 K/uL (4.3-11.0)
[2019-03-21] MEDS: HYDROGEN PEROXIDE 480 ML BOTTLE TP SCH ×2 (08:31→20:21)
[2019-03-21] MEDS: LEVETIRACETAM SOL (5 ML) 100 MG/ML UDC GT SCH ×2 (08:54→20:21)
[2019-03-21] MEDS: SIMETHICONE SUSP 40 MG/0.6 ML BOTTLE GT SCH ×2 (08:54→20:21)
[2019-03-21] MEDS: ACIDOPHILUS/BULGARICUS 1 EACH TAB.CHEW GT SCH ×2 (08:54→17:15)
[2019-03-21] MEDS: FERROUS SULFATE - FOR SA ONLY 330 MG/7.5 ML UDC GT SCH ×2 (08:54→17:15)
[2019-03-21] MEDS: FLUCONAZOLE (100 MG) 100 MG TABLET GT SCH (08:54)
[2019-03-21] MEDS: DOCUSATE SODIUM LIQ 100 MG/10 ML UDC GT SCH (08:54)
[2019-03-21] MEDS: CALCIUM CARBONATE 500 MG TAB.CHEW GT SCH ×2 (08:55→17:15)
[2019-03-21] MEDS: HEPARIN SODIUM, PORCINE 5000 UNITS/1 ML VIAL SQ SCH ×2 (08:55→20:22)
[2019-03-21] MEDS: TRILEPTAL GT SCH ×2 (08:55→20:22)
[2019-03-21] MEDS: MUPIROCIN OINT 2% 22 GM TUBE SCH ×2 (08:55→20:22)
[2019-03-21] MEDS: MULTIVIT W/MINERALS 1 TAB TABLET GT SCH (08:55)
[2019-03-21] MEDS: SENNOSIDES 8.6 MG TABLET GT SCH ×2 (08:55→20:22)
[2019-03-21] MEDS: VITAMINS A AND D 56.7 GM TUBE TP SCH ×2 (09:00→20:23)
[2019-03-21] MEDS: CLOTRIMAZOLE/BETAMETASONE DIPROPIONATE 15 GM TUBE TP SCH ×2 (09:00→20:22)
[2019-03-21] MEDS: Z GUARD REMEDY 4 OZ OINT TP SCH ×4 (09:00→20:23)
--- NOTE | 2019-03-21 10:14 | NUR ---
Late entry for 03/17/19 Discussed pt's room placement with recreation manager Didi. Pt has a history of ESBL but only has MRSA isolation at this time. Assigned different staff to patients in the room for enhanced isolation precautions.
--- NOTE | 2019-03-21 10:20 | NUR ---
Provided education to staff and pt's sister regarding isolation precautions and proper handwashing.
[2019-03-21] MEDS: GLUCERNA 1.2 1,000 ML BOTTLE GT PRN (14:58)
--- NOTE | 2019-03-21 15:40 | NUR ---
Relayed blood sugar levels to Dr Luis. He ordered to decrease Lantus insulin from 10 units to 8 units SC q HS. Notified pt's sister.
--- NOTE | 2019-03-21 17:50 | NUR ---
No gastric residuals were noted. GT feeding Glucerna was increased to 60 mL/hr. Informed Beckie.
[2019-03-21 19:58] VITALS: BP 134/79
[2019-03-21] MEDS: ASCORBIC ACID 500 MG TABLET GT SCH (20:22)
[2019-03-21] MEDS: INSULIN GLARGINE, 100 UNIT/ML CARTRIDGE SQ SCH (22:11)
[2019-03-22] MEDS: ALBUTEROL FS 2.5 MG/3 ML VIAL.NEB NEB SCH ×4 (01:22→19:46)
--- NOTE | 2019-03-22 04:15 | NUR ---
PATIENT RECEIVED ON TRACH TO VENT WITH SETTINGS OF AC 16, 550 VT, 30%, +5. SUCTIONED WITH LAVAGE FOR MINIMAL, THIN, FROTHY, WHITE SECRETIONS. GIVEN IN-LINE TREATMENTS WITH NO ADVERSE REACTIONS. AMBU BAG AT BEDSIDE. VENT ALARM AUDIBLE AND VISIBLE. VENT PLUGGED INTO RED OUTLET. Addendum: 03/22/19 at 0417 by SARA MOLINA RT Amended: Links added.
[2019-03-22] MEDS: GABAPENTIN 250 MG/5 ML SOLUTION GT SCH ×3 (04:56→20:16)
[2019-03-22] MEDS: ERYTHROMYCIN ETHYLSUCCINATE 200 MG/5 ML SUSPENSION GT SCH ×3 (05:05→18:01)
[2019-03-22] MEDS: METOCLOPRAMIDE HCL 10 MG TABLET GT SCH ×3 (05:05→18:01)
[2019-03-22] MEDS: PANTOPRAZOLE 40 MG/PACK PACK GT SCH (05:05)
[2019-03-22] MEDS: BLOOD SUGAR DIAGNOSTIC 1 EACH STRIP IN SCH ×3 (06:19→18:32)
[2019-03-22] MEDS: INSULIN REGULAR, HUMAN 100 UNIT/ML 3 ML VIAL SQ PRN ×3 (06:19→18:32)
[2019-03-22 07:42] LABS: ALBUMIN 2.2 g/dL (3.4-5.0); BILIRUBIN,TOTAL 0.2 mg/dL (0.2-1.0); CALCIUM, SERUM 9.5 mg/dL (8.5-10.1); CREATININE 2.4 mg/dL (0.6-1.3); MAGNESIUM 1.7 mg/dL (1.8-2.4); PHOSPHORUS 4.3 mg/dL (2.5-4.9); POTASSIUM 4.4 mmol/L (3.5-5.1); TOTAL PROTEIN, SERUM 9.4 g/dL (6.4-8.2)
[2019-03-22] MEDS: HYDROGEN PEROXIDE 480 ML BOTTLE TP SCH ×2 (07:46→19:46)
[2019-03-22] MEDS: MUPIROCIN OINT 2% 22 GM TUBE SCH ×2 (08:33→20:17)
[2019-03-22] MEDS: ACIDOPHILUS/BULGARICUS 1 EACH TAB.CHEW GT SCH ×2 (08:33→17:00)
[2019-03-22] MEDS: DOCUSATE SODIUM LIQ 100 MG/10 ML UDC GT SCH (08:33)
[2019-03-22] MEDS: SIMETHICONE SUSP 40 MG/0.6 ML BOTTLE GT SCH ×2 (08:33→20:16)
[2019-03-22] MEDS: MULTIVIT W/MINERALS 1 TAB TABLET GT SCH (08:33)
[2019-03-22] MEDS: SENNOSIDES 8.6 MG TABLET GT SCH ×2 (08:33→20:16)
[2019-03-22] MEDS: LEVETIRACETAM SOL (5 ML) 100 MG/ML UDC GT SCH ×2 (08:33→20:16)
[2019-03-22] MEDS: FERROUS SULFATE - FOR SA ONLY 330 MG/7.5 ML UDC GT SCH ×2 (08:33→17:00)
[2019-03-22] MEDS: TRILEPTAL GT SCH ×2 (08:33→20:16)
[2019-03-22] MEDS: CALCIUM CARBONATE 500 MG TAB.CHEW GT SCH ×2 (08:33→17:00)
[2019-03-22] MEDS: FLUCONAZOLE (100 MG) 100 MG TABLET GT SCH (08:33)
[2019-03-22] MEDS: HEPARIN SODIUM, PORCINE 5000 UNITS/1 ML VIAL SQ SCH ×2 (08:34→20:17)
[2019-03-22] MEDS: Z GUARD REMEDY 4 OZ OINT TP SCH ×4 (09:00→20:17)
[2019-03-22] MEDS: VITAMINS A AND D 56.7 GM TUBE TP SCH ×2 (09:00→20:18)
[2019-03-22] MEDS: CLOTRIMAZOLE/BETAMETASONE DIPROPIONATE 15 GM TUBE TP SCH ×2 (09:00→20:17)
--- NOTE | 2019-03-22 10:10 | NUR ---
Pt seen by PT. Received order for RNA to perform BLE/BUE PROM exercises Thursday through Thursday as tolerated.
[2019-03-22] MEDS ORDERED: MAGNESIUM OXIDE 400 MG TABLET GT ONE ×2 (10:30→13:30)
--- NOTE | 2019-03-22 10:30 | NUR ---
Seen by Dr Luis. Relayed BMP result to him. Pharmacy recommended to give Magnesium Oxide 800 mg GT x 1 for hypomagnesemia.
[2019-03-22 11:03] LABS: BASOPHILS # (AUTO) 0.2 /CMM (0.0-0.2); BASOPHILS % (AUTO) 0.7 % (0.0-2.0); EOSINOPHILS % (AUTO) 3.3 % (0.0-6.0); HEMATOCRIT 25 % (33-45); HEMOGLOBIN 8.5 g/dL (11.5-14.8); LYMPHOCYTES # (AUTO) 1.6 /CMM (0.8-4.8); LYMPHOCYTES % (AUTO) 6.2 % (20.0-44.0); MEAN CORPUSCULAR HGB CONC 34 g/dl (31.0-36.0); MEAN CORPUSCULAR VOLUME 95 fL (82-100); MONOCYTES # (AUTO) 1.8 /CMM (0.1-1.30); MONOCYTES % (AUTO) 7.2 % (2.0-12.0); NEUTROPHILS # (AUTO) 20.8 /CMM (1.8-8.9); NEUTROPHILS % (AUTO) 82.6 % (43.0-81.0); PLATELET COUNT (AUTO) 367 /CMM (150-450); RED BLOOD CELL COUNT(AUTO) 2.66 MIL/uL (4.0-5.2); WHITE BLOOD COUNT (AUTO) 25.2 K/uL (4.3-11.0)
[2019-03-22 11:53] VITALS: BP 112/87
[2019-03-22] MEDS: GLUCERNA 1.2 1,000 ML BOTTLE GT PRN (13:13)
--- NOTE | 2019-03-22 14:00 | NUR ---
Relayed CBC result to Dr Luis. He said to refer to NAN Loredo. Relayed CBC to her. NAN Loredo will follow up on pt.
--- NOTE | 2019-03-22 16:31 | NUR ---
NAN Loredo ordered blood culture, urine culture, CXR, and Flagyl 500 mg GT q 8 hours. Informed Beckie.
[2019-03-22] MEDS: METRONIDAZOLE 500 MG TABLET GT SCH (18:00)
[2019-03-22] MEDS ORDERED: METRONIDAZOLE 500MG/ NS 100ML 500 MG in PREMIX 1 EA IV SCH (18:00)
--- NOTE | 2019-03-22 19:46 | NUR ---
RT NOTE: RECEIVED TRACH PT ON [facility] VENT ON NOTED SETTINGS PER MD ORDERS. TRACH IS PATENT AND SECURED. TRACH CARE DONE. BREAKER MACHINE TENDER DONE. Q6 BREATHING TX GIVEN WITH NO ADVERSE REACTION NOTED. SX DONE PRN. VENT PLUGGED INTO RED OUTLET. ALARMS ON AND AUDIBLE. KATHARINEU BAG @ BEDSIDE. NO RESP DISTRESS AT THIS TIME. WILL CONT TO MONITOR PT. Addendum: 03/23/19 at 0248 by QIANA MARY RT Amended: Links added.
[2019-03-22 20:12] VITALS: BP 130/79
[2019-03-22] MEDS: ASCORBIC ACID 500 MG TABLET GT SCH (20:16)
[2019-03-22] MEDS: INSULIN GLARGINE, 100 UNIT/ML CARTRIDGE SQ SCH (21:34)
[2019-03-23] MEDS: METOCLOPRAMIDE HCL 10 MG TABLET GT SCH ×5 (00:10→23:27)
[2019-03-23] MEDS: ERYTHROMYCIN ETHYLSUCCINATE 200 MG/5 ML SUSPENSION GT SCH ×5 (00:10→23:27)
[2019-03-23] MEDS: BLOOD SUGAR DIAGNOSTIC 1 EACH STRIP IN SCH ×5 (00:11→23:27)
[2019-03-23] MEDS: INSULIN REGULAR, HUMAN 100 UNIT/ML 3 ML VIAL SQ PRN ×3 (00:11→23:28)
[2019-03-23] MEDS: ALBUTEROL FS 2.5 MG/3 ML VIAL.NEB NEB SCH ×4 (01:30→19:40)
[2019-03-23] MEDS: METRONIDAZOLE 500 MG TABLET GT SCH ×3 (02:31→17:36)
[2019-03-23 04:22] LABS: APPEARANCE,URINE Cloudy (CLEAR); BILIRUBIN,URINE Negative (NEGATIVE); BLOOD, URINE Moderate Ery/uL (NEGATIVE); COLOR,URINE Yellow (YELLOW); KETONES,URINE Negative (NEGATIVE); LEUKOCYTE ESTERASE ,URINE Small (NEGATIVE); NITRITE, URINE Negative (NEGATIVE); PROTEIN,URINE >=300 mg/dl (NEGATIVE); UGLUCOSE Negative (NEGATIVE); UROBILINOGEN,URINE 0.2 EU/dL (0.2)
[2019-03-23] MEDS: PANTOPRAZOLE 40 MG/PACK PACK GT SCH (05:01)
[2019-03-23] MEDS: GABAPENTIN 250 MG/5 ML SOLUTION GT SCH ×4 (05:01→20:21)
[2019-03-23 05:35] LABS: BACTERIA,URINE Few /HPF (None Seen); RBC,URINE 21-50 /HPF (0-2); SQUAMOUS EPITHELIAL CELL,UR Few /HPF (None Seen); WBC,URINE TOO NUMEROUS TO COUN /HPF (0-3)
[2019-03-23 07:23] LABS: BASOPHILS # (AUTO) 0.1 /CMM (0.0-0.2); BASOPHILS % (AUTO) 0.6 % (0.0-2.0); HEMATOCRIT 27 % (33-45); HEMOGLOBIN 8.9 g/dL (11.5-14.8); LYMPHOCYTES # (AUTO) 2.9 /CMM (0.8-4.8); LYMPHOCYTES % (AUTO) 17.2 % (20.0-44.0); MEAN CORPUSCULAR HGB CONC 33 g/dl (31.0-36.0); MEAN CORPUSCULAR VOLUME 96 fL (82-100); MONOCYTES # (AUTO) 1.1 /CMM (0.1-1.30); MONOCYTES % (AUTO) 6.5 % (2.0-12.0); NEUTROPHILS # (AUTO) 12.1 /CMM (1.8-8.9); NEUTROPHILS % (AUTO) 71.7 % (43.0-81.0); PLATELET COUNT (AUTO) 364 /CMM (150-450); RED BLOOD CELL COUNT(AUTO) 2.85 MIL/uL (4.0-5.2); WHITE BLOOD COUNT (AUTO) 16.9 K/uL (4.3-11.0)
[2019-03-23 07:42] VITALS: BP 126/79
[2019-03-23] MEDS: HYDROGEN PEROXIDE 480 ML BOTTLE TP SCH ×2 (08:18→21:00)
--- NOTE | 2019-03-23 08:22 | NUR ---
Dr. Felix made aware of the chest Xray result done on 03/22/19 and CBC result. He said he will review Xray film and will order medication as needed.
[2019-03-23] MEDS: VITAMINS A AND D 56.7 GM TUBE TP SCH ×2 (09:00→20:22)
[2019-03-23] MEDS ORDERED: LEVOFLOXACIN (500MG) 500 MG TABLET PO SCH (09:00)
[2019-03-23] MEDS: LEVOFLOXACIN (750 MG) 750 MG TABLET GT SCH (09:00)
[2019-03-23] MEDS: CLOTRIMAZOLE/BETAMETASONE DIPROPIONATE 15 GM TUBE TP SCH ×2 (09:00→20:22)
[2019-03-23] MEDS: Z GUARD REMEDY 4 OZ OINT TP SCH ×4 (09:00→20:22)
[2019-03-23] MEDS: FERROUS SULFATE - FOR SA ONLY 330 MG/7.5 ML UDC GT SCH ×2 (09:07→17:36)
[2019-03-23] MEDS: DOCUSATE SODIUM LIQ 100 MG/10 ML UDC GT SCH (09:07)
[2019-03-23] MEDS: LEVETIRACETAM SOL (5 ML) 100 MG/ML UDC GT SCH ×2 (09:07→20:21)
[2019-03-23] MEDS: TRILEPTAL GT SCH ×2 (09:07→20:21)
[2019-03-23] MEDS: CALCIUM CARBONATE 500 MG TAB.CHEW GT SCH ×2 (09:07→17:36)
[2019-03-23] MEDS: SENNOSIDES 8.6 MG TABLET GT SCH ×2 (09:07→20:21)
[2019-03-23] MEDS: SIMETHICONE SUSP 40 MG/0.6 ML BOTTLE GT SCH ×2 (09:07→20:21)
[2019-03-23] MEDS: ACIDOPHILUS/BULGARICUS 1 EACH TAB.CHEW GT SCH ×2 (09:07→17:36)
[2019-03-23] MEDS: MULTIVIT W/MINERALS 1 TAB TABLET GT SCH (09:07)
[2019-03-23] MEDS: MUPIROCIN OINT 2% 22 GM TUBE SCH ×2 (09:08→20:21)
[2019-03-23] MEDS: HEPARIN SODIUM, PORCINE 5000 UNITS/1 ML VIAL SQ SCH ×2 (09:09→20:21)
--- NOTE | 2019-03-23 10:06 | NUR ---
Noted an order from Dr. Felix to start patient on Levaquin 500mg Q 48hours. According to pharmacist Deonna, renally adjustment dose for Levaquin is [address] Felix informed and gave a stop date also for 7 days. Orders carried out. Resident's sister Beckie informed of new order.
[2019-03-23] MEDS ORDERED: LEVOFLOXACIN (750 MG) 750 MG TABLET PO ONE (11:06)
[2019-03-23] MEDS: GLUCERNA 1.2 1,000 ML BOTTLE GT PRN (14:37)
[2019-03-23] MEDS ORDERED: IPRATROPIUM NEB FS 0.5 MG/2.5 ML AMPUL.NEB ONE (15:27)
[2019-03-23] MEDS ORDERED: ALBUTEROL FS 2.5 MG/3 ML VIAL.NEB ONE (15:27)
--- NOTE | 2019-03-23 17:14 | NUR ---
Informed Dr. Luis that patient cannot keep rectal tube and comes out very often, it does not serve the purpose of containing the stool and managing ileus as it if often out. Dr. Luis gave an order to DC rectal tube, resident's sister informed.
[2019-03-23 19:57] VITALS: BP 110/77
[2019-03-23] MEDS: ASCORBIC ACID 500 MG TABLET GT SCH (20:21)
[2019-03-23] MEDS: INSULIN GLARGINE, 100 UNIT/ML CARTRIDGE SQ SCH (21:28)
[2019-03-24] MEDS: ALBUTEROL FS 2.5 MG/3 ML VIAL.NEB NEB SCH ×4 (00:45→19:48)
[2019-03-24] MEDS: METRONIDAZOLE 500 MG TABLET GT SCH ×3 (01:11→17:01)
[2019-03-24] MEDS: ERYTHROMYCIN ETHYLSUCCINATE 200 MG/5 ML SUSPENSION GT SCH ×4 (05:09→23:16)
[2019-03-24] MEDS: METOCLOPRAMIDE HCL 10 MG TABLET GT SCH ×4 (05:09→23:16)
[2019-03-24] MEDS: PANTOPRAZOLE 40 MG/PACK PACK GT SCH (05:09)
[2019-03-24] MEDS: GABAPENTIN 250 MG/5 ML SOLUTION GT SCH ×3 (05:09→20:36)
[2019-03-24] MEDS: INSULIN REGULAR, HUMAN 100 UNIT/ML 3 ML VIAL SQ PRN ×2 (05:47→23:17)
[2019-03-24] MEDS: BLOOD SUGAR DIAGNOSTIC 1 EACH STRIP IN SCH ×4 (05:47→23:16)
[2019-03-24] MEDS: HYDROGEN PEROXIDE 480 ML BOTTLE TP SCH ×2 (07:35→20:21)
[2019-03-24 07:39] VITALS: BP 114/75
[2019-03-24] MEDS: DOCUSATE SODIUM LIQ 100 MG/10 ML UDC GT SCH (09:08)
[2019-03-24] MEDS: CALCIUM CARBONATE 500 MG TAB.CHEW GT SCH ×2 (09:08→17:01)
[2019-03-24] MEDS: CLOTRIMAZOLE/BETAMETASONE DIPROPIONATE 15 GM TUBE TP SCH ×2 (09:08→20:36)
[2019-03-24] MEDS: SENNOSIDES 8.6 MG TABLET GT SCH ×2 (09:08→20:36)
[2019-03-24] MEDS: TRILEPTAL GT SCH ×2 (09:08→20:36)
[2019-03-24] MEDS: LEVETIRACETAM SOL (5 ML) 100 MG/ML UDC GT SCH ×2 (09:08→20:35)
[2019-03-24] MEDS: ACIDOPHILUS/BULGARICUS 1 EACH TAB.CHEW GT SCH ×2 (09:08→17:01)
[2019-03-24] MEDS: FERROUS SULFATE - FOR SA ONLY 330 MG/7.5 ML UDC GT SCH ×2 (09:08→17:01)
[2019-03-24] MEDS: MULTIVIT W/MINERALS 1 TAB TABLET GT SCH (09:08)
[2019-03-24] MEDS: SIMETHICONE SUSP 40 MG/0.6 ML BOTTLE GT SCH ×2 (09:08→20:35)
[2019-03-24] MEDS: MUPIROCIN OINT 2% 22 GM TUBE SCH ×2 (09:08→20:36)
[2019-03-24] MEDS: HEPARIN SODIUM, PORCINE 5000 UNITS/1 ML VIAL SQ SCH ×2 (09:08→20:36)
[2019-03-24] MEDS: Z GUARD REMEDY 4 OZ OINT TP SCH ×4 (09:08→20:36)
[2019-03-24] MEDS: VITAMINS A AND D 56.7 GM TUBE TP SCH ×2 (09:09→20:37)
--- NOTE | 2019-03-24 13:23 | NUR ---
Late entry for 03/22/19 Pt tolerating feeding well. No residuals noted. GT feeding increased to goal rate of 65 mL/hr.
--- NOTE | 2019-03-24 16:56 | NUR ---
PT. RECVD. ON MECHANICAL VENT. WITH NOTED SETTINGS. VENT IS PLUGGED TO RED OUTLET AND ALARMS ARE SET AND AUDIBLE. TRACH IS PATENT AND SECURED AND SPARE TRACH WITH BMV AT BEDSIDE. PT. HAS EQUAL CHEST RISE AND BILATERAL COARSE BREATH SOUNDS. SX. MODERATE AMOUNT OF THICK GREEN SECRETIONS T/O THE DAY AND PATIENT TOLERATED BREATHING TX'S. WELL. NO SOB NOTED. WILL PASS REPORT TO CLUTCH INSPECTOR. Addendum: 03/24/19 at 1702 by DAVE HICKMAN RT Amended: Links added.
[2019-03-24 19:55] VITALS: BP 129/77
--- NOTE | 2019-03-24 20:20 | NUR ---
Seen and examined by NAN Vargas no new order.
--- NOTE | 2019-03-24 20:27 | NUR ---
PT RCVD TRACH'D ON MECHANICAL VENT WITH CHARTED SETTINGS. PT APRIL TX WELL. SX DONE. PT TRACH IS PATENT AND SECURE. VENT ALARMS APPEAR TO BE FUNCTIONING PROPERLY. VENT PLUGGED INTO RED OUTLET. AMBU BAG AT BEDSIDE. Addendum: 03/24/19 at 2027 by MICH AVILA RT Amended: Links added.
[2019-03-24] MEDS: ASCORBIC ACID 500 MG TABLET GT SCH (20:36)
[2019-03-24] MEDS: INSULIN GLARGINE, 100 UNIT/ML CARTRIDGE SQ SCH (21:30)
[2019-03-25] MEDS: ALBUTEROL FS 2.5 MG/3 ML VIAL.NEB NEB SCH ×4 (00:34→19:08)
[2019-03-25] MEDS: METRONIDAZOLE 500 MG TABLET GT SCH ×3 (02:00→17:23)
[2019-03-25] MEDS: ERYTHROMYCIN ETHYLSUCCINATE 200 MG/5 ML SUSPENSION GT SCH ×4 (05:02→23:47)
[2019-03-25] MEDS: GABAPENTIN 250 MG/5 ML SOLUTION GT SCH ×3 (05:02→20:12)
[2019-03-25] MEDS: GLUCERNA 1.2 1,000 ML BOTTLE GT PRN (05:03)
[2019-03-25] MEDS: PANTOPRAZOLE 40 MG/PACK PACK GT SCH (05:03)
[2019-03-25] MEDS: METOCLOPRAMIDE HCL 10 MG TABLET GT SCH ×4 (05:03→23:47)
[2019-03-25] MEDS: BLOOD SUGAR DIAGNOSTIC 1 EACH STRIP IN SCH ×4 (05:36→23:47)
[2019-03-25] MEDS: INSULIN REGULAR, HUMAN 100 UNIT/ML 3 ML VIAL SQ PRN ×4 (05:37→23:47)
[2019-03-25 07:53] VITALS: BP 130/58
[2019-03-25] MEDS: HYDROGEN PEROXIDE 480 ML BOTTLE TP SCH ×2 (09:03→20:13)
[2019-03-25] MEDS: FERROUS SULFATE - FOR SA ONLY 330 MG/7.5 ML UDC GT SCH ×2 (09:56→17:23)
[2019-03-25] MEDS: DOCUSATE SODIUM LIQ 100 MG/10 ML UDC GT SCH (09:56)
[2019-03-25] MEDS: TRILEPTAL GT SCH ×2 (09:57→20:12)
[2019-03-25] MEDS: CALCIUM CARBONATE 500 MG TAB.CHEW GT SCH ×2 (09:57→17:23)
[2019-03-25] MEDS: LEVOFLOXACIN (750 MG) 750 MG TABLET GT SCH (09:57)
[2019-03-25] MEDS: CLOTRIMAZOLE/BETAMETASONE DIPROPIONATE 15 GM TUBE TP SCH ×2 (09:57→20:13)
[2019-03-25] MEDS: SIMETHICONE SUSP 40 MG/0.6 ML BOTTLE GT SCH ×2 (09:57→20:12)
[2019-03-25] MEDS: Z GUARD REMEDY 4 OZ OINT TP SCH ×4 (09:57→20:13)
[2019-03-25] MEDS: ACIDOPHILUS/BULGARICUS 1 EACH TAB.CHEW GT SCH ×2 (09:57→17:23)
[2019-03-25] MEDS: LEVETIRACETAM SOL (5 ML) 100 MG/ML UDC GT SCH ×2 (09:57→20:12)
[2019-03-25] MEDS: SENNOSIDES 8.6 MG TABLET GT SCH ×2 (09:57→20:12)
[2019-03-25] MEDS: VITAMINS A AND D 56.7 GM TUBE TP SCH ×2 (09:57→20:13)
[2019-03-25] MEDS: MULTIVIT W/MINERALS 1 TAB TABLET GT SCH (09:58)
[2019-03-25] MEDS: HEPARIN SODIUM, PORCINE 5000 UNITS/1 ML VIAL SQ SCH ×2 (09:59→20:13)
--- NOTE | 2019-03-25 15:45 | NUR ---
Relayed final urine culture result to NAN Loredo, with ESBL urine and Pseudomonas Aeruginosa. Patient is currently on Flagyl 500mg. Q 8h and Levaquin 750 mg. Q 48 hours. According to INVOICE CLERK, she will be in shortly.
[2019-03-25] MEDS ORDERED: DOSING PER PHARMACY-AMIKACI IV XX PRN (18:00)
--- NOTE | 2019-03-25 19:00 | NUR ---
NAN Loredo, reviewed labs and culture result with new order to [place] Flagyl and Amikacin IV per pharmacy to dose. Order faxed to [facility] and [facility] pharmacy, BUN and Creat level on 03/22/19 given to pharmacist. According to [facility] pharmacist she will call for dosing. Endorsed to incoming shift. Resident's sister Beckie informed of new ATB order and contact isolation.
--- NOTE | 2019-03-25 19:05 | NUR ---
RT NOTE RECEIVED PT WITH THE NOTED VENT SETTING. PT APRIL. VENT WELL AND INLINE NEB TX WELL. NO RESP. DISTRESS NOTED. WILL CONTINUE TO MONITOR. Addendum: 03/26/19 at 0522 by BETTINA BAKER RT Amended: Links added.
[2019-03-25 20:00] VITALS: BP 114/73
[2019-03-25 20:07] VITALS: BP 129/79
[2019-03-25] MEDS: ASCORBIC ACID 500 MG TABLET GT SCH (20:12)
[2019-03-25] MEDS: AMIKACIN 300 MG in IV D5W 100 ML IV SCH (21:00)
[2019-03-25] MEDS: INSULIN GLARGINE, 100 UNIT/ML CARTRIDGE SQ SCH (21:18)
[2019-03-26] MEDS: ALBUTEROL FS 2.5 MG/3 ML VIAL.NEB NEB SCH ×4 (00:54→19:25)
[2019-03-26] MEDS: GABAPENTIN 250 MG/5 ML SOLUTION GT SCH ×3 (05:31→20:22)
[2019-03-26] MEDS: ERYTHROMYCIN ETHYLSUCCINATE 200 MG/5 ML SUSPENSION GT SCH ×4 (05:31→23:01)
[2019-03-26] MEDS: BLOOD SUGAR DIAGNOSTIC 1 EACH STRIP IN SCH ×4 (05:31→23:14)
[2019-03-26] MEDS: METOCLOPRAMIDE HCL 10 MG TABLET GT SCH ×4 (05:31→23:02)
[2019-03-26] MEDS: GLUCERNA 1.2 1,000 ML BOTTLE GT PRN (05:31)
[2019-03-26] MEDS: PANTOPRAZOLE 40 MG/PACK PACK GT SCH (05:31)
[2019-03-26] MEDS: INSULIN REGULAR, HUMAN 100 UNIT/ML 3 ML VIAL SQ PRN ×3 (05:31→17:39)
[2019-03-26 07:33] VITALS: BP 101/75
[2019-03-26 07:51] LABS: CREATININE 2.5 mg/dL (0.6-1.3)
[2019-03-26] MEDS: SENNOSIDES 8.6 MG TABLET GT SCH ×2 (08:33→20:22)
[2019-03-26] MEDS: MULTIVIT W/MINERALS 1 TAB TABLET GT SCH (08:33)
[2019-03-26] MEDS: FERROUS SULFATE - FOR SA ONLY 330 MG/7.5 ML UDC GT SCH ×2 (08:33→17:38)
[2019-03-26] MEDS: ACIDOPHILUS/BULGARICUS 1 EACH TAB.CHEW GT SCH ×2 (08:33→17:38)
[2019-03-26] MEDS: SIMETHICONE SUSP 40 MG/0.6 ML BOTTLE GT SCH ×2 (08:33→20:22)
[2019-03-26] MEDS: DOCUSATE SODIUM LIQ 100 MG/10 ML UDC GT SCH (08:33)
[2019-03-26] MEDS: LEVETIRACETAM SOL (5 ML) 100 MG/ML UDC GT SCH ×2 (08:33→20:21)
[2019-03-26] MEDS: TRILEPTAL GT SCH ×2 (08:33→20:22)
[2019-03-26] MEDS: CALCIUM CARBONATE 500 MG TAB.CHEW GT SCH ×2 (08:33→17:38)
[2019-03-26] MEDS: HEPARIN SODIUM, PORCINE 5000 UNITS/1 ML VIAL SQ SCH ×2 (08:34→20:30)
[2019-03-26] MEDS: VITAMINS A AND D 56.7 GM TUBE TP SCH ×2 (08:34→20:23)
[2019-03-26] MEDS: Z GUARD REMEDY 4 OZ OINT TP SCH ×4 (08:34→20:23)
[2019-03-26] MEDS: CLOTRIMAZOLE/BETAMETASONE DIPROPIONATE 15 GM TUBE TP SCH ×2 (08:34→20:23)
[2019-03-26] MEDS: HYDROGEN PEROXIDE 480 ML BOTTLE TP SCH ×2 (09:15→20:22)
--- NOTE | 2019-03-26 09:51 | NUR ---
RT NOTE PT RECEIVED TRACHED ON MECHANICAL VENTILATION. AMBU BAG/BACK UP TRACH @ BEDSIDE. TX GIVEN, NO ADVERSE REACTIONS NOTED. SX DONE, TRACH SECURED AND PATENT. ALARMS ON AND AUDIBLE. NO SOB NOTED. Addendum: 03/26/19 at 0952 by BRIEN NEAL RT Amended: Links added.
--- NOTE | 2019-03-26 11:45 | NUR ---
Reported multiple rashes in the R and L thigh to Dr. Luis, with new order to apply Triamcinolone 0.1% QS x 20 days. Left a message to patient's sister Beckie.
--- NOTE | 2019-03-26 16:55 | NUR ---
Followed-up delivery of Triamcinolone from [facility] pharmacy, according to staff it went out on their 3 pm run, awaiting for delivery.
[2019-03-26 20:01] VITALS: BP 114/73
[2019-03-26] MEDS: TRIAMCINOLONE ACETONIDE 0.1% CR 15 GM TUBE TP SCH (20:22)
[2019-03-26] MEDS: ASCORBIC ACID 500 MG TABLET GT SCH (20:22)
[2019-03-26] MEDS: AMIKACIN 300 MG in IV D5W 100 ML IV SCH (21:53)
[2019-03-26] MEDS: INSULIN GLARGINE, 100 UNIT/ML CARTRIDGE SQ SCH (22:00)
--- NOTE | 2019-03-26 22:01 | NUR ---
blood sugar 104
[2019-03-27] MEDS: ALBUTEROL FS 2.5 MG/3 ML VIAL.NEB NEB SCH ×4 (01:31→19:04)
--- NOTE | 2019-03-27 03:48 | NUR ---
RT Patient remained on continuous vent support on noted settings.Breathing treatment was given . Airway patent and secured. Patient stable throughout the shift. Will continue to monitor. Addendum: 03/27/19 at 0348 by DIEGO BRADY RT Amended: Links added.
[2019-03-27] MEDS: PANTOPRAZOLE 40 MG/PACK PACK GT SCH (05:11)
[2019-03-27] MEDS: GABAPENTIN 250 MG/5 ML SOLUTION GT SCH ×3 (05:11→20:06)
[2019-03-27] MEDS: METOCLOPRAMIDE HCL 10 MG TABLET GT SCH ×3 (05:11→17:00)
[2019-03-27] MEDS: ERYTHROMYCIN ETHYLSUCCINATE 200 MG/5 ML SUSPENSION GT SCH ×3 (05:11→17:00)
[2019-03-27] MEDS: BLOOD SUGAR DIAGNOSTIC 1 EACH STRIP IN SCH ×3 (05:23→17:07)
[2019-03-27 08:03] VITALS: BP 102/64
[2019-03-27] MEDS: SIMETHICONE SUSP 40 MG/0.6 ML BOTTLE GT SCH ×2 (09:15→20:05)
[2019-03-27] MEDS: CALCIUM CARBONATE 500 MG TAB.CHEW GT SCH ×2 (09:15→17:00)
[2019-03-27] MEDS: MULTIVIT W/MINERALS 1 TAB TABLET GT SCH (09:15)
[2019-03-27] MEDS: SENNOSIDES 8.6 MG TABLET GT SCH ×2 (09:15→20:07)
[2019-03-27] MEDS: FERROUS SULFATE - FOR SA ONLY 330 MG/7.5 ML UDC GT SCH ×2 (09:15→17:00)
[2019-03-27] MEDS: TRILEPTAL GT SCH ×2 (09:15→20:07)
[2019-03-27] MEDS: ACIDOPHILUS/BULGARICUS 1 EACH TAB.CHEW GT SCH ×2 (09:15→17:00)
[2019-03-27] MEDS: DOCUSATE SODIUM LIQ 100 MG/10 ML UDC GT SCH (09:15)
[2019-03-27] MEDS: LEVETIRACETAM SOL (5 ML) 100 MG/ML UDC GT SCH ×2 (09:15→20:05)
[2019-03-27] MEDS: LEVOFLOXACIN (750 MG) 750 MG TABLET GT SCH (09:15)
[2019-03-27] MEDS: CLOTRIMAZOLE/BETAMETASONE DIPROPIONATE 15 GM TUBE TP SCH ×2 (09:16→20:09)
[2019-03-27] MEDS: Z GUARD REMEDY 4 OZ OINT TP SCH ×4 (09:16→20:09)
[2019-03-27] MEDS: TRIAMCINOLONE ACETONIDE 0.1% CR 15 GM TUBE TP SCH ×2 (09:16→20:09)
[2019-03-27] MEDS: HEPARIN SODIUM, PORCINE 5000 UNITS/1 ML VIAL SQ SCH ×2 (09:16→20:08)
[2019-03-27] MEDS: VITAMINS A AND D 56.7 GM TUBE TP SCH ×2 (09:17→20:09)
[2019-03-27] MEDS: HYDROGEN PEROXIDE 480 ML BOTTLE TP SCH ×2 (09:38→19:05)
--- NOTE | 2019-03-27 09:45 | NUR ---
Seen and examined by Dr. Luis no new order given.
[2019-03-27] MEDS: INSULIN REGULAR, HUMAN 100 UNIT/ML 3 ML VIAL SQ PRN ×2 (12:35→17:08)
[2019-03-27] MEDS: GLUCERNA 1.2 1,000 ML BOTTLE GT PRN (17:08)
--- NOTE | 2019-03-27 19:05 | NUR ---
RT NOTE RECEIVED PT WITH THE NOTED CONDITION AND VENT SETTING IN OF637-2. PT APRIL. VENT AND TX WELL. NO RESP. DISTRESS NOTED. WILL CONTINUE WITH THE CURRENT PLAN OF CARE. Addendum: 03/28/19 at 0210 by BETTINA BAKER RT Amended: Links added.
[2019-03-27] MEDS: ASCORBIC ACID 500 MG TABLET GT SCH (20:07)
[2019-03-27 20:14] VITALS: BP 125/80
[2019-03-27] MEDS: INSULIN GLARGINE, 100 UNIT/ML CARTRIDGE SQ SCH (21:51)
[2019-03-27] MEDS: AMIKACIN 300 MG in IV D5W 100 ML IV SCH (21:52)
[2019-03-28] MEDS: METOCLOPRAMIDE HCL 10 MG TABLET GT SCH ×4 (00:01→17:26)
[2019-03-28] MEDS: ERYTHROMYCIN ETHYLSUCCINATE 200 MG/5 ML SUSPENSION GT SCH ×4 (00:01→17:26)
[2019-03-28] MEDS: INSULIN REGULAR, HUMAN 100 UNIT/ML 3 ML VIAL SQ PRN ×4 (00:01→17:26)
[2019-03-28] MEDS: BLOOD SUGAR DIAGNOSTIC 1 EACH STRIP IN SCH ×4 (00:01→17:26)
[2019-03-28] MEDS: ALBUTEROL FS 2.5 MG/3 ML VIAL.NEB NEB SCH ×4 (00:39→19:26)
[2019-03-28] MEDS: GABAPENTIN 250 MG/5 ML SOLUTION GT SCH ×3 (05:08→20:09)
[2019-03-28] MEDS: PANTOPRAZOLE 40 MG/PACK PACK GT SCH (05:09)
[2019-03-28] MEDS: Z GUARD REMEDY 4 OZ OINT TP SCH ×4 (09:00→20:12)
[2019-03-28] MEDS: HYDROGEN PEROXIDE 480 ML BOTTLE TP SCH ×2 (09:00→22:37)
[2019-03-28] MEDS: VITAMINS A AND D 56.7 GM TUBE TP SCH ×2 (09:00→20:12)
[2019-03-28 09:02] VITALS: BP 122/77
[2019-03-28] MEDS: HEPARIN SODIUM, PORCINE 5000 UNITS/1 ML VIAL SQ SCH ×2 (09:59→20:10)
[2019-03-28] MEDS: ACIDOPHILUS/BULGARICUS 1 EACH TAB.CHEW GT SCH ×2 (09:59→17:26)
[2019-03-28] MEDS: SENNOSIDES 8.6 MG TABLET GT SCH ×2 (09:59→20:11)
[2019-03-28] MEDS: SIMETHICONE SUSP 40 MG/0.6 ML BOTTLE GT SCH ×2 (09:59→20:08)
[2019-03-28] MEDS: DOCUSATE SODIUM LIQ 100 MG/10 ML UDC GT SCH (09:59)
[2019-03-28] MEDS: LEVETIRACETAM SOL (5 ML) 100 MG/ML UDC GT SCH ×2 (09:59→20:07)
[2019-03-28] MEDS: CLOTRIMAZOLE/BETAMETASONE DIPROPIONATE 15 GM TUBE TP SCH ×2 (09:59→20:12)
[2019-03-28] MEDS: FERROUS SULFATE - FOR SA ONLY 330 MG/7.5 ML UDC GT SCH ×2 (09:59→17:26)
[2019-03-28] MEDS: TRIAMCINOLONE ACETONIDE 0.1% CR 15 GM TUBE TP SCH ×2 (09:59→21:43)
[2019-03-28] MEDS: TRILEPTAL GT SCH ×2 (09:59→20:11)
[2019-03-28] MEDS: CALCIUM CARBONATE 500 MG TAB.CHEW GT SCH ×2 (09:59→17:26)
[2019-03-28] MEDS: MULTIVIT W/MINERALS 1 TAB TABLET GT SCH (09:59)
[2019-03-28] MEDS: GLUCERNA 1.2 1,000 ML BOTTLE GT PRN (12:56)
--- NOTE | 2019-03-28 16:27 | NUR ---
STEPHEN left voicemail to patient's sister, Beckie Chu to inform [phone] family that the Interdisciplinary Plan of Care Conference will be taking place this 04/01/19 and that they may attend or participate via phone conference.
[2019-03-28] MEDS: ASCORBIC ACID 500 MG TABLET GT SCH (20:11)
[2019-03-28 20:14] VITALS: BP 135/79
[2019-03-28] MEDS: AMIKACIN 300 MG in IV D5W 100 ML IV SCH (21:00)
[2019-03-28] MEDS: INSULIN GLARGINE, 100 UNIT/ML CARTRIDGE SQ SCH (21:44)
[2019-03-29] MEDS: ERYTHROMYCIN ETHYLSUCCINATE 200 MG/5 ML SUSPENSION GT SCH ×4 (00:22→17:30)
[2019-03-29] MEDS: METOCLOPRAMIDE HCL 10 MG TABLET GT SCH ×4 (00:22→17:30)
[2019-03-29] MEDS: BLOOD SUGAR DIAGNOSTIC 1 EACH STRIP IN SCH ×4 (00:24→17:30)
[2019-03-29] MEDS: INSULIN REGULAR, HUMAN 100 UNIT/ML 3 ML VIAL SQ PRN ×4 (00:24→17:30)
[2019-03-29] MEDS: ALBUTEROL FS 2.5 MG/3 ML VIAL.NEB NEB SCH ×4 (01:27→20:06)
[2019-03-29] MEDS: GLUCERNA 1.2 1,000 ML BOTTLE GT PRN (03:58)
[2019-03-29] MEDS: GABAPENTIN 250 MG/5 ML SOLUTION GT SCH ×3 (05:25→20:41)
[2019-03-29] MEDS: PANTOPRAZOLE 40 MG/PACK PACK GT SCH (05:26)
[2019-03-29] MEDS: HYDROGEN PEROXIDE 480 ML BOTTLE TP SCH ×2 (08:15→21:00)
[2019-03-29] MEDS: SIMETHICONE SUSP 40 MG/0.6 ML BOTTLE GT SCH ×2 (08:44→20:40)
[2019-03-29] MEDS: SENNOSIDES 8.6 MG TABLET GT SCH ×2 (08:44→20:42)
[2019-03-29] MEDS: MULTIVIT W/MINERALS 1 TAB TABLET GT SCH (08:44)
[2019-03-29] MEDS: ACIDOPHILUS/BULGARICUS 1 EACH TAB.CHEW GT SCH ×2 (08:44→17:30)
[2019-03-29] MEDS: LEVETIRACETAM SOL (5 ML) 100 MG/ML UDC GT SCH ×2 (08:44→20:40)
[2019-03-29] MEDS: TRILEPTAL GT SCH ×2 (08:44→20:42)
[2019-03-29] MEDS: CALCIUM CARBONATE 500 MG TAB.CHEW GT SCH ×2 (08:44→17:30)
[2019-03-29] MEDS: DOCUSATE SODIUM LIQ 100 MG/10 ML UDC GT SCH (08:44)
[2019-03-29] MEDS: FERROUS SULFATE - FOR SA ONLY 330 MG/7.5 ML UDC GT SCH ×2 (08:44→17:30)
[2019-03-29] MEDS: HEPARIN SODIUM, PORCINE 5000 UNITS/1 ML VIAL SQ SCH ×2 (08:45→20:43)
[2019-03-29] MEDS: Z GUARD REMEDY 4 OZ OINT TP SCH ×4 (09:00→20:44)
[2019-03-29] MEDS: TRIAMCINOLONE ACETONIDE 0.1% CR 15 GM TUBE TP SCH ×2 (09:00→20:44)
[2019-03-29] MEDS: VITAMINS A AND D 56.7 GM TUBE TP SCH ×2 (09:00→20:44)
[2019-03-29] MEDS: CLOTRIMAZOLE/BETAMETASONE DIPROPIONATE 15 GM TUBE TP SCH ×2 (09:00→20:44)
[2019-03-29 10:52] VITALS: BP 133/83
[2019-03-29 20:06] VITALS: BP 119/40
[2019-03-29] MEDS: AMIKACIN 300 MG in IV D5W 100 ML IV SCH (20:30)
[2019-03-29] MEDS: ASCORBIC ACID 500 MG TABLET GT SCH (20:42)
[2019-03-29] MEDS: INSULIN GLARGINE, 100 UNIT/ML CARTRIDGE SQ SCH (21:33)
[2019-03-30] MEDS: GLUCERNA 1.2 1,000 ML BOTTLE GT PRN (00:09)
[2019-03-30] MEDS: ERYTHROMYCIN ETHYLSUCCINATE 200 MG/5 ML SUSPENSION GT SCH ×5 (00:26→23:36)
[2019-03-30] MEDS: METOCLOPRAMIDE HCL 10 MG TABLET GT SCH ×5 (00:26→23:36)
[2019-03-30] MEDS: INSULIN REGULAR, HUMAN 100 UNIT/ML 3 ML VIAL SQ PRN ×5 (00:28→23:36)
[2019-03-30] MEDS: BLOOD SUGAR DIAGNOSTIC 1 EACH STRIP IN SCH ×5 (00:32→23:36)
[2019-03-30] MEDS: ALBUTEROL FS 2.5 MG/3 ML VIAL.NEB NEB SCH ×4 (02:17→19:56)
[2019-03-30] MEDS: GABAPENTIN 250 MG/5 ML SOLUTION GT SCH ×3 (05:12→20:57)
[2019-03-30] MEDS: PANTOPRAZOLE 40 MG/PACK PACK GT SCH (05:13)
[2019-03-30 07:30] VITALS: BP 115/66
[2019-03-30] MEDS: TRIAMCINOLONE ACETONIDE 0.1% CR 15 GM TUBE TP SCH ×2 (09:00→21:01)
[2019-03-30] MEDS: VITAMINS A AND D 56.7 GM TUBE TP SCH ×2 (09:00→21:02)
[2019-03-30] MEDS: CLOTRIMAZOLE/BETAMETASONE DIPROPIONATE 15 GM TUBE TP SCH ×2 (09:00→21:01)
[2019-03-30] MEDS: Z GUARD REMEDY 4 OZ OINT TP SCH ×4 (09:00→21:02)
--- NOTE | 2019-03-30 09:00 | NUR ---
RT NOTE PT RECEIVED TRACHED ON MECHANICAL VENTILATION. AMBU BAG/BACK UP TRACH @ BEDSIDE. TX GIVEN, NO ADVERSE REACTIONS NOTED. SX DONE, TRACH SECURED AND PATENT. ALARMS ON AND AUDIBLE. NO SOB NOTED. Addendum: 03/30/19 at 0900 by MARCO FRANCOIS RT Amended: Links added.
[2019-03-30] MEDS: HYDROGEN PEROXIDE 480 ML BOTTLE TP SCH ×2 (09:08→21:12)
[2019-03-30] MEDS: SENNOSIDES 8.6 MG TABLET GT SCH ×2 (09:35→20:57)
[2019-03-30] MEDS: FERROUS SULFATE - FOR SA ONLY 330 MG/7.5 ML UDC GT SCH ×2 (09:35→16:12)
[2019-03-30] MEDS: TRILEPTAL GT SCH ×2 (09:35→20:57)
[2019-03-30] MEDS: SIMETHICONE SUSP 40 MG/0.6 ML BOTTLE GT SCH ×2 (09:35→20:56)
[2019-03-30] MEDS: LEVETIRACETAM SOL (5 ML) 100 MG/ML UDC GT SCH ×2 (09:35→20:56)
[2019-03-30] MEDS: DOCUSATE SODIUM LIQ 100 MG/10 ML UDC GT SCH (09:35)
[2019-03-30] MEDS: ACIDOPHILUS/BULGARICUS 1 EACH TAB.CHEW GT SCH ×2 (09:35→16:12)
[2019-03-30] MEDS: CALCIUM CARBONATE 500 MG TAB.CHEW GT SCH ×2 (09:35→16:12)
[2019-03-30] MEDS: MULTIVIT W/MINERALS 1 TAB TABLET GT SCH (09:35)
[2019-03-30] MEDS: HEPARIN SODIUM, PORCINE 5000 UNITS/1 ML VIAL SQ SCH ×2 (09:36→20:57)
--- NOTE | 2019-03-30 19:57 | NUR ---
RECEIVED TRACH PT ON MECH VENT ON NOTED SETTINGS PER MD ORDERS. PT IS AWAKE, RESPONDS TO STIMULI WHEN SUCTIONED AND NON VERBAL.TRACH IS PATENT AND SECURED. REHABILITATION TECHNICIAN DONE. Q6 BREATHING TX GIVEN. NO ADVERSE REACTION NOTED. SX DONE PRN. VENT PLUGGED INTO RED OUTLET. ALARMS ON AND AUDIBLE. AMBU BAG @ BEDSIDE. NO RESP DISTRESS AT THIS TIME. WILL CONT TO MONITOR PT.
[2019-03-30 20:11] VITALS: BP 105/75
[2019-03-30] MEDS: ASCORBIC ACID 500 MG TABLET GT SCH (20:57)
[2019-03-30] MEDS: INSULIN GLARGINE, 100 UNIT/ML CARTRIDGE SQ SCH (21:13)
[2019-03-31] MEDS: ALBUTEROL FS 2.5 MG/3 ML VIAL.NEB NEB SCH ×4 (00:36→19:32)
[2019-03-31] MEDS: GLUCERNA 1.2 1,000 ML BOTTLE GT PRN ×2 (01:21→18:06)
[2019-03-31] MEDS: ERYTHROMYCIN ETHYLSUCCINATE 200 MG/5 ML SUSPENSION GT SCH ×4 (05:28→23:11)
[2019-03-31] MEDS: GABAPENTIN 250 MG/5 ML SOLUTION GT SCH ×3 (05:28→20:49)
[2019-03-31] MEDS: PANTOPRAZOLE 40 MG/PACK PACK GT SCH (05:29)
[2019-03-31] MEDS: METOCLOPRAMIDE HCL 10 MG TABLET GT SCH ×4 (05:29→23:11)
[2019-03-31] MEDS: BLOOD SUGAR DIAGNOSTIC 1 EACH STRIP IN SCH ×4 (05:29→23:12)
[2019-03-31] MEDS: INSULIN REGULAR, HUMAN 100 UNIT/ML 3 ML VIAL SQ PRN ×2 (05:30→23:12)
[2019-03-31 07:42] VITALS: BP 112/62
[2019-03-31] MEDS: SENNOSIDES 8.6 MG TABLET GT SCH ×2 (09:00→20:49)
[2019-03-31] MEDS: HYDROGEN PEROXIDE 480 ML BOTTLE TP SCH ×2 (09:00→20:11)
[2019-03-31] MEDS: LEVETIRACETAM SOL (5 ML) 100 MG/ML UDC GT SCH ×2 (09:00→20:49)
[2019-03-31] MEDS: TRILEPTAL GT SCH ×2 (09:00→20:49)
[2019-03-31] MEDS: CALCIUM CARBONATE 500 MG TAB.CHEW GT SCH ×2 (09:00→17:48)
[2019-03-31] MEDS: DOCUSATE SODIUM LIQ 100 MG/10 ML UDC GT SCH (09:00)
[2019-03-31] MEDS: ACIDOPHILUS/BULGARICUS 1 EACH TAB.CHEW GT SCH ×2 (09:00→17:48)
[2019-03-31] MEDS: HEPARIN SODIUM, PORCINE 5000 UNITS/1 ML VIAL SQ SCH ×2 (09:00→20:49)
[2019-03-31] MEDS: VITAMINS A AND D 56.7 GM TUBE TP SCH ×2 (09:00→20:50)
[2019-03-31] MEDS: SIMETHICONE SUSP 40 MG/0.6 ML BOTTLE GT SCH ×2 (09:00→20:49)
[2019-03-31] MEDS: CLOTRIMAZOLE/BETAMETASONE DIPROPIONATE 15 GM TUBE TP SCH ×2 (09:00→20:49)
[2019-03-31] MEDS: TRIAMCINOLONE ACETONIDE 0.1% CR 15 GM TUBE TP SCH ×2 (09:00→20:49)
[2019-03-31] MEDS: MULTIVIT W/MINERALS 1 TAB TABLET GT SCH (09:00)
[2019-03-31] MEDS: FERROUS SULFATE - FOR SA ONLY 330 MG/7.5 ML UDC GT SCH ×2 (09:00→17:48)
[2019-03-31] MEDS: Z GUARD REMEDY 4 OZ OINT TP SCH ×4 (09:00→20:49)
--- NOTE | 2019-03-31 11:32 | NUR ---
RT NOTE PT RECEIVED TRACHED ON MECHANICAL VENTILATION. AMBU BAG/BACK UP TRACH @ BEDSIDE. TX GIVEN, NO ADVERSE REACTIONS NOTED. SX DONE, TRACH SECURED AND PATENT. ALARMS ON AND AUDIBLE. NO SOB NOTED. Addendum: 03/31/19 at 1132 by MARCO FRANCOIS RT Amended: Links added.
[2019-03-31] MEDS: AMIKACIN 300 MG in IV D5W 100 ML IV SCH (17:00)
--- NOTE | 2019-03-31 19:51 | NUR ---
NAN Loredo ordered to give Amikacin 300 mg IV q 24 hours for 2 more doses.
--- NOTE | 2019-03-31 20:12 | NUR ---
PT RCVD TRACH'D ON MECHANICAL VENT WITH CHARTED SETTINGS. PT APRIL TX WELL. SX DONE. PT TRACH IS PATENT AND SECURE. VENT ALARMS APPEAR TO BE FUNCTIONING PROPERLY. VENT PLUGGED INTO RED OUTLET. AMBU BAG AT BEDSIDE. Addendum: 03/31/19 at 2014 by MICH AVILA RT Amended: Links added.
[2019-03-31] MEDS: ASCORBIC ACID 500 MG TABLET GT SCH (20:49)
[2019-03-31 20:56] VITALS: BP 118/66
[2019-03-31] MEDS: INSULIN GLARGINE, 100 UNIT/ML CARTRIDGE SQ SCH (21:16)
[2019-04-01] MEDS: ALBUTEROL FS 2.5 MG/3 ML VIAL.NEB NEB SCH ×4 (00:32→19:30)
[2019-04-01] MEDS: BLOOD SUGAR DIAGNOSTIC 1 EACH STRIP IN SCH ×4 (05:31→23:17)
[2019-04-01] MEDS: GABAPENTIN 250 MG/5 ML SOLUTION GT SCH ×3 (05:31→20:57)
[2019-04-01] MEDS: ERYTHROMYCIN ETHYLSUCCINATE 200 MG/5 ML SUSPENSION GT SCH ×4 (05:31→23:10)
[2019-04-01] MEDS: INSULIN REGULAR, HUMAN 100 UNIT/ML 3 ML VIAL SQ PRN ×4 (05:31→23:17)
[2019-04-01] MEDS: METOCLOPRAMIDE HCL 10 MG TABLET GT SCH ×4 (05:31→23:10)
[2019-04-01] MEDS: OMEPRAZOLE 20 MG CAPSULE.DR GT SCH (05:31)
[2019-04-01 06:31] LABS: BASOPHILS # (AUTO) 0.1 /CMM (0.0-0.2); BASOPHILS % (AUTO) 0.5 % (0.0-2.0); EOSINOPHILS % (AUTO) 3.1 % (0.0-6.0); HEMATOCRIT 23 % (33-45); LYMPHOCYTES # (AUTO) 2.6 /CMM (0.8-4.8); LYMPHOCYTES % (AUTO) 13.7 % (20.0-44.0); MEAN CORPUSCULAR HGB CONC 34 g/dl (31.0-36.0); MEAN CORPUSCULAR VOLUME 94 fL (82-100); MONOCYTES # (AUTO) 1.2 /CMM (0.1-1.30); MONOCYTES % (AUTO) 6.5 % (2.0-12.0); NEUTROPHILS # (AUTO) 14.6 /CMM (1.8-8.9); NEUTROPHILS % (AUTO) 76.2 % (43.0-81.0); PLATELET COUNT (AUTO) 389 /CMM (150-450); RED BLOOD CELL COUNT(AUTO) 2.49 MIL/uL (4.0-5.2); WHITE BLOOD COUNT (AUTO) 19.2 K/uL (4.3-11.0)
[2019-04-01 06:52] LABS: CALCIUM, SERUM 10.2 mg/dL (8.5-10.1); CREATININE 2.6 mg/dL (0.6-1.3); MAGNESIUM 2.3 mg/dL (1.8-2.4); PHOSPHORUS 4.1 mg/dL (2.5-4.9); POTASSIUM 3.6 mmol/L (3.5-5.1)
[2019-04-01 07:52] VITALS: BP 110/67
[2019-04-01] MEDS: VITAMINS A AND D 56.7 GM TUBE TP SCH ×2 (09:00→20:58)
[2019-04-01] MEDS: Z GUARD REMEDY 4 OZ OINT TP SCH ×4 (09:00→20:58)
[2019-04-01] MEDS: TRIAMCINOLONE ACETONIDE 0.1% CR 15 GM TUBE TP SCH ×2 (09:00→20:57)
[2019-04-01] MEDS: CLOTRIMAZOLE/BETAMETASONE DIPROPIONATE 15 GM TUBE TP SCH ×2 (09:00→20:57)
[2019-04-01] MEDS: SIMETHICONE SUSP 40 MG/0.6 ML BOTTLE GT SCH ×2 (09:16→20:57)
[2019-04-01] MEDS: CALCIUM CARBONATE 500 MG TAB.CHEW GT SCH ×2 (09:16→17:35)
[2019-04-01] MEDS: FERROUS SULFATE - FOR SA ONLY 330 MG/7.5 ML UDC GT SCH ×2 (09:16→17:35)
[2019-04-01] MEDS: SENNOSIDES 8.6 MG TABLET GT SCH ×2 (09:16→20:57)
[2019-04-01] MEDS: MULTIVIT W/MINERALS 1 TAB TABLET GT SCH (09:16)
[2019-04-01] MEDS: ACIDOPHILUS/BULGARICUS 1 EACH TAB.CHEW GT SCH ×2 (09:16→17:35)
[2019-04-01] MEDS: LEVETIRACETAM SOL (5 ML) 100 MG/ML UDC GT SCH ×2 (09:16→20:56)
[2019-04-01] MEDS: TRILEPTAL GT SCH ×2 (09:16→20:57)
[2019-04-01] MEDS: DOCUSATE SODIUM LIQ 100 MG/10 ML UDC GT SCH (09:16)
[2019-04-01] MEDS: HEPARIN SODIUM, PORCINE 5000 UNITS/1 ML VIAL SQ SCH ×2 (09:17→20:57)
[2019-04-01] MEDS: HYDROGEN PEROXIDE 480 ML BOTTLE TP SCH ×2 (09:28→20:57)
--- NOTE | 2019-04-01 10:05 | NUR ---
Left a message to Dr. Luis, patient noted to have a bump in the R upper buttock, hard to touch. Awaiting for call back.
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
--- NOTE | 2019-04-01 15:30 | NUR ---
Reported CBC and BMP result to NAN Calhoun, with new order to continue Amikacin IV, urology consult and UA and C&S. Spoke with Dr. Rodriguez regarding urology consult and said that he will see the patient this weekend. Resident's sister Beckie informed.
[2019-04-01] MEDS: GLUCERNA 1.2 1,000 ML BOTTLE GT PRN (16:03)
--- NOTE | 2019-04-01 17:02 | NUR ---
RT NOTES TRACH TUBE IN PLACE, PATENT, AND SECURED WITH TRACH TIE. RECEIVED PT ON VENT WITH ORDERED SETTINGS. ALARMS ON AND AUDIBLE. VENT PLUGGED IN TO THE RED OUTLET. AMBU BAG AND BACK UP TRACH BY THE BEDSIDE. NO DISTRESS AT THIS TIME. WILL CONTINUE TO MONITOR. Addendum: 04/01/19 at 1708 by ADRIÁN THOMAS RT Amended: Links added.
[2019-04-01] MEDS: AMIKACIN 300 MG in IV D5W 100 ML IV SCH (17:35)
--- NOTE | 2019-04-01 19:40 | NUR ---
Seen and examined by Dr. Luis ,right of back with bump noted and seen by MD.He also made aware of Urology consultation.He said he said he might order renal ultrasound.
[2019-04-01 19:46] VITALS: BP 137/76
[2019-04-01] MEDS: ASCORBIC ACID 500 MG TABLET GT SCH (20:57)
[2019-04-01] MEDS: INSULIN GLARGINE, 100 UNIT/ML CARTRIDGE SQ SCH (21:01)
[2019-04-02] MEDS: ALBUTEROL FS 2.5 MG/3 ML VIAL.NEB NEB SCH ×4 (01:23→19:23)
[2019-04-02] MEDS: OMEPRAZOLE 20 MG CAPSULE.DR GT SCH (05:16)
[2019-04-02] MEDS: METOCLOPRAMIDE HCL 10 MG TABLET GT SCH ×4 (05:16→23:07)
[2019-04-02] MEDS: GABAPENTIN 250 MG/5 ML SOLUTION GT SCH ×3 (05:16→20:10)
[2019-04-02] MEDS: ERYTHROMYCIN ETHYLSUCCINATE 200 MG/5 ML SUSPENSION GT SCH ×4 (05:16→23:07)
[2019-04-02] MEDS: INSULIN REGULAR, HUMAN 100 UNIT/ML 3 ML VIAL SQ PRN ×4 (05:32→23:16)
[2019-04-02] MEDS: BLOOD SUGAR DIAGNOSTIC 1 EACH STRIP IN SCH ×4 (05:32→23:16)
[2019-04-02 07:28] VITALS: BP 122/62
[2019-04-02] MEDS: DOCUSATE SODIUM LIQ 100 MG/10 ML UDC GT SCH (08:56)
[2019-04-02] MEDS: FERROUS SULFATE - FOR SA ONLY 330 MG/7.5 ML UDC GT SCH ×2 (08:56→16:59)
[2019-04-02] MEDS: SIMETHICONE SUSP 40 MG/0.6 ML BOTTLE GT SCH ×2 (08:57→20:10)
[2019-04-02] MEDS: ACIDOPHILUS/BULGARICUS 1 EACH TAB.CHEW GT SCH ×2 (08:57→16:59)
[2019-04-02] MEDS: LEVETIRACETAM SOL (5 ML) 100 MG/ML UDC GT SCH ×2 (08:57→20:10)
[2019-04-02 08:58] LABS: APPEARANCE,URINE SL CLOUDY (CLEAR); BILIRUBIN,URINE NEGATIVE (NEGATIVE); BLOOD, URINE MODERATE Ery/uL (NEGATIVE); COLOR,URINE YELLOW (YELLOW); KETONES,URINE NEGATIVE (NEGATIVE); LEUKOCYTE ESTERASE ,URINE LARGE (NEGATIVE); NITRITE, URINE NEGATIVE (NEGATIVE); PROTEIN,URINE >=300 mg/dl (NEGATIVE); UGLUCOSE NEGATIVE (NEGATIVE); UROBILINOGEN,URINE 0.2 EU/dL (0.2)
[2019-04-02] MEDS: SENNOSIDES 8.6 MG TABLET GT SCH ×2 (08:58→20:10)
[2019-04-02] MEDS: TRILEPTAL GT SCH ×2 (08:58→20:10)
[2019-04-02] MEDS: CALCIUM CARBONATE 500 MG TAB.CHEW GT SCH ×2 (08:58→16:59)
[2019-04-02] MEDS: Z GUARD REMEDY 4 OZ OINT TP SCH ×4 (09:00→20:11)
[2019-04-02] MEDS: CLOTRIMAZOLE/BETAMETASONE DIPROPIONATE 15 GM TUBE TP SCH ×2 (09:00→20:11)
[2019-04-02] MEDS: VITAMINS A AND D 56.7 GM TUBE TP SCH ×2 (09:00→20:11)
[2019-04-02] MEDS: MULTIVIT W/MINERALS 1 TAB TABLET GT SCH (09:01)
[2019-04-02] MEDS: HEPARIN SODIUM, PORCINE 5000 UNITS/1 ML VIAL SQ SCH ×2 (09:02→20:11)
[2019-04-02] MEDS: TRIAMCINOLONE ACETONIDE 0.1% CR 15 GM TUBE TP SCH ×2 (09:02→20:11)
[2019-04-02] MEDS: HYDROGEN PEROXIDE 480 ML BOTTLE TP SCH ×2 (09:31→20:11)
[2019-04-02 10:10] LABS: WBC,URINE TOO NUMEROUS TO COUN /HPF (0-3)
[2019-04-02 10:12] LABS: BACTERIA,URINE Few /HPF (None Seen); SQUAMOUS EPITHELIAL CELL,UR Moderate /HPF (None Seen)
[2019-04-02 10:13] LABS: RBC,URINE 21-50 /HPF (0-2)
[2019-04-02] MEDS: GLUCERNA 1.2 1,000 ML BOTTLE GT PRN (11:53)
--- NOTE | 2019-04-02 13:30 | NUR ---
Resident's sister Beckie visited. Informed patient's sister that patient was seen by Dr. Luis last night and what MD thinks of the bump in the R upper buttock area is. He said "it is a bone or it feels like a hardware", however he did not give a definitive answer but will review previous x-ray to find out.
--- NOTE | 2019-04-02 15:00 | NUR ---
Reported renal ultrasound result to Dr. Luis, he said that he doesn't think patient will need another nephrostomy tube. Informed resident's sister Beckie of the result and MD's response. She said she does not remember patient having a nephrostomy tube. Informed Beckie that will review patient's previous record and will let her know when it was done. Endorsed.
--- NOTE | 2019-04-02 15:59 | NUR ---
RT NOTES TRACH TUBE IN PLACE, PATENT, AND SECURED WITH TRACH TIE. RECEIVED PT ON VENT WITH ORDERED SETTINGS. ALARMS ON AND AUDIBLE. VENT PLUGGED IN TO THE RED OUTLET. AMBU BAG AND BACK UP TRACH BY THE BEDSIDE. NO DISTRESS AT THIS TIME. WILL CONTINUE TO MONITOR. Addendum: 04/02/19 at 1600 by ADRIÁN THOMAS RT Amended: Links added.
[2019-04-02] MEDS ORDERED: DOSING PER PHARMACY-AMIKACI IV XX PRN (16:30)
[2019-04-02] MEDS: AMIKACIN 300 MG in IV D5W 100 ML IV SCH (16:52)
[2019-04-02 19:40] VITALS: BP 113/67
[2019-04-02] MEDS: ASCORBIC ACID 500 MG TABLET GT SCH (20:10)
[2019-04-02] MEDS: INSULIN GLARGINE, 100 UNIT/ML CARTRIDGE SQ SCH (21:05)
[2019-04-03] MEDS: ALBUTEROL FS 2.5 MG/3 ML VIAL.NEB NEB SCH ×4 (01:01→19:36)
[2019-04-03] MEDS: OMEPRAZOLE 20 MG CAPSULE.DR GT SCH (05:13)
[2019-04-03] MEDS: ERYTHROMYCIN ETHYLSUCCINATE 200 MG/5 ML SUSPENSION GT SCH ×4 (05:13→23:13)
[2019-04-03] MEDS: GABAPENTIN 250 MG/5 ML SOLUTION GT SCH ×3 (05:13→21:15)
[2019-04-03] MEDS: BLOOD SUGAR DIAGNOSTIC 1 EACH STRIP IN SCH ×4 (05:13→23:13)
[2019-04-03] MEDS: METOCLOPRAMIDE HCL 10 MG TABLET GT SCH ×4 (05:13→23:13)
[2019-04-03] MEDS: GLUCERNA 1.2 1,000 ML BOTTLE GT PRN ×2 (05:14→21:11)
[2019-04-03] MEDS: INSULIN REGULAR, HUMAN 100 UNIT/ML 3 ML VIAL SQ PRN ×4 (05:14→23:14)
[2019-04-03 07:26] VITALS: BP 119/64
[2019-04-03] MEDS: DOCUSATE SODIUM LIQ 100 MG/10 ML UDC GT SCH (08:52)
[2019-04-03] MEDS: FERROUS SULFATE - FOR SA ONLY 330 MG/7.5 ML UDC GT SCH ×2 (08:52→16:57)
[2019-04-03] MEDS: LEVETIRACETAM SOL (5 ML) 100 MG/ML UDC GT SCH ×2 (08:53→21:15)
[2019-04-03] MEDS: TRILEPTAL GT SCH ×2 (08:53→21:16)
[2019-04-03] MEDS: SENNOSIDES 8.6 MG TABLET GT SCH ×2 (08:53→21:16)
[2019-04-03] MEDS: SIMETHICONE SUSP 40 MG/0.6 ML BOTTLE GT SCH ×2 (08:53→21:15)
[2019-04-03] MEDS: ACIDOPHILUS/BULGARICUS 1 EACH TAB.CHEW GT SCH ×2 (08:53→16:57)
[2019-04-03] MEDS: MULTIVIT W/MINERALS 1 TAB TABLET GT SCH (08:54)
[2019-04-03] MEDS: CALCIUM CARBONATE 500 MG TAB.CHEW GT SCH ×2 (08:54→16:57)
[2019-04-03] MEDS: HYDROGEN PEROXIDE 480 ML BOTTLE TP SCH ×2 (09:00→19:36)
[2019-04-03] MEDS: CLOTRIMAZOLE/BETAMETASONE DIPROPIONATE 15 GM TUBE TP SCH ×2 (09:00→21:16)
[2019-04-03] MEDS: TRIAMCINOLONE ACETONIDE 0.1% CR 15 GM TUBE TP SCH ×2 (09:00→21:16)
[2019-04-03] MEDS: Z GUARD REMEDY 4 OZ OINT TP SCH ×4 (09:00→21:16)
[2019-04-03] MEDS: VITAMINS A AND D 56.7 GM TUBE TP SCH ×2 (09:00→21:16)
[2019-04-03] MEDS: HEPARIN SODIUM, PORCINE 5000 UNITS/1 ML VIAL SQ SCH ×2 (09:05→21:16)
[2019-04-03] MEDS: AMIKACIN 300 MG in IV D5W 100 ML IV SCH (17:10)
--- NOTE | 2019-04-03 19:36 | NUR ---
RT NOTE: RECEIVED TRACH PT ON [facility] VENT ON NOTED SETTINGS PER MD ORDERS. TRACH IS PATENT AND SECURED. TRACH CARE DONE. PREPARATOR DONE. Q6 BREATHING TX GIVEN WITH NO ADVERSE REACTION NOTED. SX DONE PRN. VENT PLUGGED INTO RED OUTLET. ALARMS ON AND AUDIBLE. KATHARINEU BAG @ BEDSIDE. NO RESP DISTRESS AT THIS TIME. WILL CONT TO MONITOR PT. Addendum: 04/04/19 at 0526 by QIANA MARY RT Amended: Links added.
[2019-04-03 19:45] VITALS: BP 128/69
[2019-04-03] MEDS: ASCORBIC ACID 500 MG TABLET GT SCH (21:16)
[2019-04-03] MEDS: INSULIN GLARGINE, 100 UNIT/ML CARTRIDGE SQ SCH (21:17)
[2019-04-04] MEDS: ALBUTEROL FS 2.5 MG/3 ML VIAL.NEB NEB SCH ×5 (01:08→19:52)
[2019-04-04] MEDS: ERYTHROMYCIN ETHYLSUCCINATE 200 MG/5 ML SUSPENSION GT SCH ×4 (05:01→23:19)
[2019-04-04] MEDS: GABAPENTIN 250 MG/5 ML SOLUTION GT SCH ×3 (05:01→20:13)
[2019-04-04] MEDS: OMEPRAZOLE 20 MG CAPSULE.DR GT SCH (05:02)
[2019-04-04] MEDS: METOCLOPRAMIDE HCL 10 MG TABLET GT SCH ×4 (05:02→23:19)
[2019-04-04] MEDS: INSULIN REGULAR, HUMAN 100 UNIT/ML 3 ML VIAL SQ PRN ×2 (05:08→23:19)
[2019-04-04] MEDS: BLOOD SUGAR DIAGNOSTIC 1 EACH STRIP IN SCH ×4 (05:08→23:19)
[2019-04-04] MEDS: HEPARIN SODIUM, PORCINE 5000 UNITS/1 ML VIAL SQ SCH ×2 (08:22→20:15)
[2019-04-04] MEDS: ACIDOPHILUS/BULGARICUS 1 EACH TAB.CHEW GT SCH ×2 (08:47→17:44)
[2019-04-04] MEDS: TRIAMCINOLONE ACETONIDE 0.1% CR 15 GM TUBE TP SCH ×2 (08:47→20:15)
[2019-04-04] MEDS: CALCIUM CARBONATE 500 MG TAB.CHEW GT SCH ×2 (08:47→17:44)
[2019-04-04] MEDS: MULTIVIT W/MINERALS 1 TAB TABLET GT SCH (08:47)
[2019-04-04] MEDS: TRILEPTAL GT SCH ×2 (08:47→20:13)
[2019-04-04] MEDS: DOCUSATE SODIUM LIQ 100 MG/10 ML UDC GT SCH (08:47)
[2019-04-04] MEDS: FERROUS SULFATE - FOR SA ONLY 330 MG/7.5 ML UDC GT SCH ×2 (08:47→17:44)
[2019-04-04] MEDS: SIMETHICONE SUSP 40 MG/0.6 ML BOTTLE GT SCH ×2 (08:47→20:10)
[2019-04-04] MEDS: LEVETIRACETAM SOL (5 ML) 100 MG/ML UDC GT SCH ×2 (08:47→20:10)
[2019-04-04] MEDS: SENNOSIDES 8.6 MG TABLET GT SCH ×2 (08:47→20:14)
[2019-04-04] MEDS: VITAMINS A AND D 56.7 GM TUBE TP SCH ×2 (08:48→20:16)
[2019-04-04] MEDS: CLOTRIMAZOLE/BETAMETASONE DIPROPIONATE 15 GM TUBE TP SCH ×2 (08:48→20:15)
[2019-04-04] MEDS: Z GUARD REMEDY 4 OZ OINT TP SCH ×4 (08:48→20:16)
[2019-04-04] MEDS: HYDROGEN PEROXIDE 480 ML BOTTLE TP SCH ×2 (09:40→19:53)
--- NOTE | 2019-04-04 10:35 | NUR ---
Late Entry for 04/01/19:STEPHEN was informed by STEEL CUTTER that the patients sister, Beckie Chu was asking to stay and watch as the patient was cleaned and changed. Families are normally asked to step out of the room for safety protocol when patient is being provided any service. STEPHEN explained safety protocol to Beckie, However, Beckie explained that she is concerned and would like to stay and watch how CNAs clean the pt. when she is soiled to ensure that they are thorough. STEPHEN relayed information and request to Faina and family was permitted to stay and observe as pt. is cleaned and changed.
--- NOTE | 2019-04-04 10:42 | NUR ---
Late Entry for 04/01/19: [employer] Field Processing Supervisor provided the pt.'s responsible constitution party, Beckie Chu with copies of IDT paperwork for 03/18/19 and 03/04/19 per her request. Beckie expressed gratitude.
[2019-04-04 11:01] VITALS: BP 112/78
[2019-04-04] MEDS: AMIKACIN 300 MG in IV D5W 100 ML IV SCH (17:00)
[2019-04-04 17:20] LABS: CREATININE 2.5 mg/dL (0.6-1.3)
[2019-04-04] MEDS: GLUCERNA 1.2 1,000 ML BOTTLE GT PRN (17:25)
[2019-04-04 19:56] VITALS: BP 121/81
[2019-04-04] MEDS: ASCORBIC ACID 500 MG TABLET GT SCH (20:14)
[2019-04-04] MEDS: INSULIN GLARGINE, 100 UNIT/ML CARTRIDGE SQ SCH (22:05)
[2019-04-05] MEDS: ALBUTEROL FS 2.5 MG/3 ML VIAL.NEB NEB SCH ×4 (02:25→19:26)
--- NOTE | 2019-04-05 04:42 | NUR ---
RT NOTE PT. RECEIVED ON TRACH ON MECHANICAL VENT WITH NOTED SETTINGS. ALARMS ARE SET AND AUDIBLE AND VENT IS PLUGGED TO RED OUTLET. TRACH IS PATENT AND SECURE. SPARE TRACH AND BVM IS AT BEDSIDE. PT. HAS EQUAL CHEST RISE WITH COARSE BILATERAL BREATH SOUNDS. SX. MODERATE AMOUNT OF WHITE THIN SECRETIONS T/O THE NIGHT. Q6 TX'S WERE GIVEN WITH NO ADVERSE REACTIONS. Addendum: 04/05/19 at 0452 by DAVE HICKMAN RT Amended: Links added.
[2019-04-05] MEDS: ERYTHROMYCIN ETHYLSUCCINATE 200 MG/5 ML SUSPENSION GT SCH ×4 (05:01→23:12)
[2019-04-05] MEDS: OMEPRAZOLE 20 MG CAPSULE.DR GT SCH (05:01)
[2019-04-05] MEDS: GABAPENTIN 250 MG/5 ML SOLUTION GT SCH ×3 (05:01→20:09)
[2019-04-05] MEDS: METOCLOPRAMIDE HCL 10 MG TABLET GT SCH ×4 (05:01→23:12)
[2019-04-05] MEDS: BLOOD SUGAR DIAGNOSTIC 1 EACH STRIP IN SCH ×4 (05:51→23:12)
[2019-04-05] MEDS: INSULIN REGULAR, HUMAN 100 UNIT/ML 3 ML VIAL SQ PRN ×4 (05:52→23:12)
[2019-04-05] MEDS: GLUCERNA 1.2 1,000 ML BOTTLE GT PRN ×2 (06:33→23:13)
[2019-04-05 07:51] VITALS: BP 129/73
[2019-04-05] MEDS: VITAMINS A AND D 56.7 GM TUBE TP SCH ×2 (09:00→20:10)
[2019-04-05] MEDS: Z GUARD REMEDY 4 OZ OINT TP SCH ×4 (09:00→20:10)
[2019-04-05] MEDS: CLOTRIMAZOLE/BETAMETASONE DIPROPIONATE 15 GM TUBE TP SCH ×2 (09:00→20:10)
[2019-04-05] MEDS: TRIAMCINOLONE ACETONIDE 0.1% CR 15 GM TUBE TP SCH ×2 (09:00→20:10)
[2019-04-05] MEDS: HYDROGEN PEROXIDE 480 ML BOTTLE TP SCH ×2 (09:02→19:26)
[2019-04-05] MEDS: DOCUSATE SODIUM LIQ 100 MG/10 ML UDC GT SCH (09:04)
[2019-04-05] MEDS: FERROUS SULFATE - FOR SA ONLY 330 MG/7.5 ML UDC GT SCH ×2 (09:04→17:36)
[2019-04-05] MEDS: SIMETHICONE SUSP 40 MG/0.6 ML BOTTLE GT SCH ×2 (09:04→20:09)
[2019-04-05] MEDS: ACIDOPHILUS/BULGARICUS 1 EACH TAB.CHEW GT SCH ×2 (09:04→17:36)
[2019-04-05] MEDS: LEVETIRACETAM SOL (5 ML) 100 MG/ML UDC GT SCH ×2 (09:04→20:09)
[2019-04-05] MEDS: CALCIUM CARBONATE 500 MG TAB.CHEW GT SCH ×2 (09:04→17:36)
[2019-04-05] MEDS: SENNOSIDES 8.6 MG TABLET GT SCH ×2 (09:04→20:09)
[2019-04-05] MEDS: MULTIVIT W/MINERALS 1 TAB TABLET GT SCH (09:04)
[2019-04-05] MEDS: TRILEPTAL GT SCH ×2 (09:04→20:09)
[2019-04-05] MEDS: HEPARIN SODIUM, PORCINE 5000 UNITS/1 ML VIAL SQ SCH ×2 (09:05→20:10)
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
--- NOTE | 2019-04-05 14:29 | NUR ---
[facility] pharmacist asking for Amikacin's stop date, however final urine culture shows mixed contaminants. Notified Dr. Luis if he wants to reculture the urine since it is showing mixed contaminants, he said no, but to obtain CBC instead. Order carried out. Addendum: 04/05/19 at 1434 by TAMMY FLEMING RN Dr. Luis also made aware that Dr. Braga will see patient this week.
[2019-04-05 15:57] LABS: HEMATOCRIT 25 % (33-45); HEMOGLOBIN 8.8 g/dL (11.5-14.8); MEAN CORPUSCULAR HGB CONC 36 g/dl (31.0-36.0); MEAN CORPUSCULAR VOLUME 95 fL (82-100); PLATELET COUNT (AUTO) 452 /CMM (150-450); RED BLOOD CELL COUNT(AUTO) 2.63 MIL/uL (4.0-5.2); WHITE BLOOD COUNT (AUTO) 17.4 K/uL (4.3-11.0)
[2019-04-05 16:13] LABS: EOSINOPHILS % (MANUAL) 3 % (0-4); LYMPHOCYTES % (MANUAL) 26 % (16-48); MONOCYTES % (MANUAL) 5 % (0-11.0); NEUTROPHILS % (MANUAL) 66 (42-76)
[2019-04-05] MEDS: AMIKACIN 300 MG in IV D5W 100 ML IV SCH (17:00)
--- NOTE | 2019-04-05 17:43 | NUR ---
Relayed Amikacin trough 7.0 to IV pharmacist Doc. Received order to hold Amikacin dose today and check random level tomorrow.
--- NOTE | 2019-04-05 19:27 | NUR ---
RT NOTE: RECEIVED TRACH PT ON [facility] VENT ON NOTED SETTINGS PER MD ORDERS. TRACH IS PATENT AND SECURED. TRACH CARE DONE. FOOT CUTTER DONE. Q6 BREATHING TX GIVEN WITH NO ADVERSE REACTION NOTED. SX DONE PRN. VENT PLUGGED INTO RED OUTLET. ALARMS ON AND AUDIBLE. KATHARINEU BAG @ BEDSIDE. NO RESP DISTRESS AT THIS TIME. WILL CONT TO MONITOR PT. Addendum: 04/06/19 at 0347 by QIANA MARY RT Amended: Links added.
[2019-04-05] MEDS: ASCORBIC ACID 500 MG TABLET GT SCH (20:09)
[2019-04-05 20:39] VITALS: BP 109/77
[2019-04-05] MEDS: INSULIN GLARGINE, 100 UNIT/ML CARTRIDGE SQ SCH (21:55)
[2019-04-06] MEDS: ALBUTEROL FS 2.5 MG/3 ML VIAL.NEB NEB SCH ×4 (01:34→19:30)
[2019-04-06] MEDS: ERYTHROMYCIN ETHYLSUCCINATE 200 MG/5 ML SUSPENSION GT SCH ×4 (05:18→23:07)
[2019-04-06] MEDS: GABAPENTIN 250 MG/5 ML SOLUTION GT SCH ×3 (05:18→20:12)
[2019-04-06] MEDS: OMEPRAZOLE 20 MG CAPSULE.DR GT SCH (05:18)
[2019-04-06] MEDS: METOCLOPRAMIDE HCL 10 MG TABLET GT SCH ×4 (05:18→23:07)
[2019-04-06] MEDS: BLOOD SUGAR DIAGNOSTIC 1 EACH STRIP IN SCH ×4 (05:42→23:07)
[2019-04-06] MEDS: INSULIN REGULAR, HUMAN 100 UNIT/ML 3 ML VIAL SQ PRN ×4 (05:42→23:08)
[2019-04-06 07:52] VITALS: BP 110/71
[2019-04-06] MEDS: HYDROGEN PEROXIDE 480 ML BOTTLE TP SCH ×2 (08:00→19:30)
[2019-04-06] MEDS: SIMETHICONE SUSP 40 MG/0.6 ML BOTTLE GT SCH ×2 (09:00→20:12)
[2019-04-06] MEDS: HEPARIN SODIUM, PORCINE 5000 UNITS/1 ML VIAL SQ SCH ×2 (09:00→20:13)
[2019-04-06] MEDS: Z GUARD REMEDY 4 OZ OINT TP SCH ×4 (09:00→20:13)
[2019-04-06] MEDS: DOCUSATE SODIUM LIQ 100 MG/10 ML UDC GT SCH (09:00)
[2019-04-06] MEDS: LEVETIRACETAM SOL (5 ML) 100 MG/ML UDC GT SCH ×2 (09:00→20:12)
[2019-04-06] MEDS: SENNOSIDES 8.6 MG TABLET GT SCH ×2 (09:00→20:12)
[2019-04-06] MEDS: CLOTRIMAZOLE/BETAMETASONE DIPROPIONATE 15 GM TUBE TP SCH ×2 (09:00→20:13)
[2019-04-06] MEDS: VITAMINS A AND D 56.7 GM TUBE TP SCH ×2 (09:00→20:13)
[2019-04-06] MEDS: TRIAMCINOLONE ACETONIDE 0.1% CR 15 GM TUBE TP SCH ×2 (09:00→20:13)
[2019-04-06] MEDS: ACIDOPHILUS/BULGARICUS 1 EACH TAB.CHEW GT SCH ×2 (09:00→17:32)
[2019-04-06] MEDS: MULTIVIT W/MINERALS 1 TAB TABLET GT SCH (09:00)
[2019-04-06] MEDS: CALCIUM CARBONATE 500 MG TAB.CHEW GT SCH ×2 (09:00→17:32)
[2019-04-06] MEDS: FERROUS SULFATE - FOR SA ONLY 330 MG/7.5 ML UDC GT SCH ×2 (09:00→17:32)
[2019-04-06] MEDS: TRILEPTAL GT SCH ×2 (09:00→20:12)
--- NOTE | 2019-04-06 11:00 | NUR ---
RT RECEIVED PT TRACH'D ON [facility] VENT WITH SETTINGS PER MD ORDER. FLOAT OPERATOR DONE. SPARE TRACH AND AMBU BAG AT BEDSIDE. VENT PLUGGED INTO RED OUTLET. ALARMS ON AND WORKING PROPERLY. TX GIVEN ORDERED. NO ADVERSE REACTIONS OBSERVED. SUCTIONED AND MONITORED PRN. NO SOB NOTED. TRACH CARE DONE. Addendum: 04/06/19 at 1710 by YAMIL MARTINEZ RT Amended: Links added.
--- NOTE | 2019-04-06 13:52 | NUR ---
STEPHEN left a voicemail for the pt.s sister, Beckie Chu [phone] inviting them to the Family Support Group for the month of April taking place 04/13/19 from 11am-12 pm in the old admin room. STEPHEN left call back number.
--- NOTE | 2019-04-06 16:09 | NUR ---
Random Amikacin level (3.7) relayed to Donnell and faxed to [facility] IV pharmacy department.
[2019-04-06] MEDS: AMIKACIN 300 MG in IV D5W 100 ML IV SCH (17:00)
[2019-04-06] MEDS: GLUCERNA 1.2 1,000 ML BOTTLE GT PRN (17:33)
--- NOTE | 2019-04-06 17:39 | NUR ---
Spoke with Doc, IV pharmacist at [facility], reported random Amikacin level of 3.7, she said not to give the dose at this time and will fax the recommendation.
--- NOTE | 2019-04-06 19:40 | NUR ---
Per Gertrude continue Amicakin pharmacy to dose until seen by Urologist.She also order CBC in AM.Will carry out.
[2019-04-06 19:59] VITALS: BP 108/74
[2019-04-06] MEDS: ASCORBIC ACID 500 MG TABLET GT SCH (20:12)
--- NOTE | 2019-04-06 21:00 | NUR ---
Per pharmacy discontinue Amikacin 300 mg.Start Amikacin 500mg q 48 hours start on 04/07 @ 8pm.Amicakin through on 04/11/19.
[2019-04-06] MEDS: INSULIN GLARGINE, 100 UNIT/ML CARTRIDGE SQ SCH (22:12)
[2019-04-07] MEDS: ALBUTEROL FS 2.5 MG/3 ML VIAL.NEB NEB SCH ×4 (01:24→20:04)
[2019-04-07] MEDS: METOCLOPRAMIDE HCL 10 MG TABLET GT SCH ×4 (05:03→23:09)
[2019-04-07] MEDS: GABAPENTIN 250 MG/5 ML SOLUTION GT SCH ×3 (05:03→20:15)
[2019-04-07] MEDS: ERYTHROMYCIN ETHYLSUCCINATE 200 MG/5 ML SUSPENSION GT SCH ×4 (05:03→23:14)
[2019-04-07] MEDS: OMEPRAZOLE 20 MG CAPSULE.DR GT SCH (05:03)
[2019-04-07] MEDS: BLOOD SUGAR DIAGNOSTIC 1 EACH STRIP IN SCH ×4 (05:49→23:09)
[2019-04-07] MEDS: INSULIN REGULAR, HUMAN 100 UNIT/ML 3 ML VIAL SQ PRN ×4 (05:50→23:11)
[2019-04-07 06:27] LABS: BASOPHILS # (AUTO) 0.1 /CMM (0.0-0.2); BASOPHILS % (AUTO) 0.8 % (0.0-2.0); EOSINOPHILS % (AUTO) 6.1 % (0.0-6.0); HEMATOCRIT 24 % (33-45); HEMOGLOBIN 8.2 g/dL (11.5-14.8); LYMPHOCYTES # (AUTO) 4.3 /CMM (0.8-4.8); MEAN CORPUSCULAR HGB CONC 35 g/dl (31.0-36.0); MEAN CORPUSCULAR VOLUME 95 fL (82-100); MONOCYTES # (AUTO) 1.5 /CMM (0.1-1.30); MONOCYTES % (AUTO) 10.6 % (2.0-12.0); NEUTROPHILS # (AUTO) 7.5 /CMM (1.8-8.9); NEUTROPHILS % (AUTO) 52.5 % (43.0-81.0); PLATELET COUNT (AUTO) 410 /CMM (150-450); RED BLOOD CELL COUNT(AUTO) 2.51 MIL/uL (4.0-5.2); WHITE BLOOD COUNT (AUTO) 14.3 K/uL (4.3-11.0)
[2019-04-07 08:03] VITALS: BP 129/80
[2019-04-07] MEDS: VITAMINS A AND D 56.7 GM TUBE TP SCH ×2 (09:00→20:16)
[2019-04-07] MEDS: HYDROGEN PEROXIDE 480 ML BOTTLE TP SCH ×2 (09:00→20:16)
[2019-04-07] MEDS: CLOTRIMAZOLE/BETAMETASONE DIPROPIONATE 15 GM TUBE TP SCH ×2 (09:00→20:16)
[2019-04-07] MEDS: TRIAMCINOLONE ACETONIDE 0.1% CR 15 GM TUBE TP SCH ×2 (09:00→20:16)
[2019-04-07] MEDS: Z GUARD REMEDY 4 OZ OINT TP SCH ×4 (09:00→20:16)
[2019-04-07] MEDS: DOCUSATE SODIUM LIQ 100 MG/10 ML UDC GT SCH (09:18)
[2019-04-07] MEDS: FERROUS SULFATE - FOR SA ONLY 330 MG/7.5 ML UDC GT SCH ×2 (09:18→16:42)
[2019-04-07] MEDS: HEPARIN SODIUM, PORCINE 5000 UNITS/1 ML VIAL SQ SCH ×2 (09:19→20:16)
[2019-04-07] MEDS: LEVETIRACETAM SOL (5 ML) 100 MG/ML UDC GT SCH ×2 (09:19→20:15)
[2019-04-07] MEDS: ACIDOPHILUS/BULGARICUS 1 EACH TAB.CHEW GT SCH ×2 (09:19→16:42)
[2019-04-07] MEDS: CALCIUM CARBONATE 500 MG TAB.CHEW GT SCH ×2 (09:19→16:42)
[2019-04-07] MEDS: MULTIVIT W/MINERALS 1 TAB TABLET GT SCH (09:19)
[2019-04-07] MEDS: SENNOSIDES 8.6 MG TABLET GT SCH ×2 (09:19→20:15)
[2019-04-07] MEDS: SIMETHICONE SUSP 40 MG/0.6 ML BOTTLE GT SCH ×2 (09:19→20:15)
[2019-04-07] MEDS: TRILEPTAL GT SCH ×2 (09:19→20:15)
[2019-04-07 10:10] LABS: BAND % (MANUAL) 2 % (0.0-5.0); EOSINOPHILS % (MANUAL) 7 % (0-4); LYMPHOCYTES % (MANUAL) 29 % (16-48); MONOCYTES % (MANUAL) 8 % (0-11.0); MYELOCYTES % 2 % (0-0); NEUTROPHILS % (MANUAL) 52 (42-76)
[2019-04-07] MEDS: GLUCERNA 1.2 1,000 ML BOTTLE GT PRN (12:40)
[2019-04-07] MEDS: MAGNESIUM HYDROXIDE 30 ML UDC GT PRN (19:30)
[2019-04-07] MEDS: AMIKACIN 500 MG in IV D5W 100 ML IV SCH (20:00)
--- NOTE | 2019-04-07 20:00 | NUR ---
Seen and examined by NAN Vargas no new orders.
[2019-04-07] MEDS: ASCORBIC ACID 500 MG TABLET GT SCH (20:15)
[2019-04-07 20:55] VITALS: BP 118/73
[2019-04-07] MEDS: INSULIN GLARGINE, 100 UNIT/ML CARTRIDGE SQ SCH (21:04)
--- NOTE | 2019-04-07 21:05 | NUR ---
PT RCVD TRACH'D ON MECHANICAL VENT WITH CHARTED SETTINGS. PT APRIL TX WELL. SX DONE. PT TRACH IS PATENT AND SECURE. VENT ALARMS APPEAR TO BE FUNCTIONING PROPERLY. VENT PLUGGED INTO RED OUTLET. AMBU BAG AT BEDSIDE. NO SOB NOTED. Addendum: 04/07/19 at 2106 by MICH AVILA RT Amended: Links added.
[2019-04-08] MEDS: ALBUTEROL FS 2.5 MG/3 ML VIAL.NEB NEB SCH ×4 (00:32→19:50)
[2019-04-08] MEDS: OMEPRAZOLE 20 MG CAPSULE.DR GT SCH (05:11)
[2019-04-08] MEDS: GABAPENTIN 250 MG/5 ML SOLUTION GT SCH ×3 (05:11→20:13)
[2019-04-08] MEDS: ERYTHROMYCIN ETHYLSUCCINATE 200 MG/5 ML SUSPENSION GT SCH ×4 (05:11→23:26)
[2019-04-08] MEDS: METOCLOPRAMIDE HCL 10 MG TABLET GT SCH ×4 (05:11→23:26)
[2019-04-08] MEDS: BLOOD SUGAR DIAGNOSTIC 1 EACH STRIP IN SCH ×4 (05:11→23:26)
[2019-04-08] MEDS: INSULIN REGULAR, HUMAN 100 UNIT/ML 3 ML VIAL SQ PRN ×4 (05:12→23:26)
[2019-04-08 06:44] VITALS: BP 125/74
--- NOTE | 2019-04-08 08:34 | NUR ---
RT NOTE RECEIVED PT MECHANICALLY VENTILATED VIA CUFFED TRACHEOSTOMY TUBE. CUFF INFLATED. TRACH TUBE MIDLINE AND SECURE. VENTILATOR SETTINGS PRESCRIBED. ALARMS SET PER PROTOCOL AND AUDIBLE. VENT PLUGGED IN TO RED OUTLET. AMBU BAG AND BACK UP TRACH AT BED SIDE. NO DISTRESS NOTED. Addendum: 04/08/19 at 0836 by MAXI BRADY RT Amended: Links added.
[2019-04-08] MEDS: LEVETIRACETAM SOL (5 ML) 100 MG/ML UDC GT SCH ×2 (09:00→20:12)
[2019-04-08] MEDS: HYDROGEN PEROXIDE 480 ML BOTTLE TP SCH ×2 (09:00→19:50)
[2019-04-08] MEDS: Z GUARD REMEDY 4 OZ OINT TP SCH ×4 (09:00→20:14)
[2019-04-08] MEDS: MULTIVIT W/MINERALS 1 TAB TABLET GT SCH (09:00)
[2019-04-08] MEDS: HEPARIN SODIUM, PORCINE 5000 UNITS/1 ML VIAL SQ SCH ×2 (09:00→20:14)
[2019-04-08] MEDS: SIMETHICONE SUSP 40 MG/0.6 ML BOTTLE GT SCH ×2 (09:00→20:12)
[2019-04-08] MEDS: CALCIUM CARBONATE 500 MG TAB.CHEW GT SCH ×2 (09:00→17:32)
[2019-04-08] MEDS: DOCUSATE SODIUM LIQ 100 MG/10 ML UDC GT SCH (09:00)
[2019-04-08] MEDS: VITAMINS A AND D 56.7 GM TUBE TP SCH ×2 (09:00→20:14)
[2019-04-08] MEDS: TRILEPTAL GT SCH ×2 (09:00→20:13)
[2019-04-08] MEDS: FERROUS SULFATE - FOR SA ONLY 330 MG/7.5 ML UDC GT SCH ×2 (09:00→17:32)
[2019-04-08] MEDS: CLOTRIMAZOLE/BETAMETASONE DIPROPIONATE 15 GM TUBE TP SCH ×2 (09:00→20:14)
[2019-04-08] MEDS: ACIDOPHILUS/BULGARICUS 1 EACH TAB.CHEW GT SCH ×2 (09:00→17:32)
[2019-04-08] MEDS: TRIAMCINOLONE ACETONIDE 0.1% CR 15 GM TUBE TP SCH ×2 (09:00→20:14)
[2019-04-08] MEDS: SENNOSIDES 8.6 MG TABLET GT SCH ×2 (09:00→20:13)
--- NOTE | 2019-04-08 12:07 | NUR ---
STEPHEN left a voicemail for the pt.s sister, Beckie Chu [phone] inviting them to the IDT taking place 04/15/19 from 12:30PM-1:30pm in the activities room. STEPHEN left call back number.
[2019-04-08] MEDS: GLUCERNA 1.2 1,000 ML BOTTLE GT PRN (12:17)
[2019-04-08 19:55] VITALS: BP 121/74
[2019-04-08] MEDS: ASCORBIC ACID 500 MG TABLET GT SCH (20:13)
[2019-04-08] MEDS: INSULIN GLARGINE, 100 UNIT/ML CARTRIDGE SQ SCH (21:43)
[2019-04-09] MEDS: ALBUTEROL FS 2.5 MG/3 ML VIAL.NEB NEB SCH ×4 (01:21→19:42)
--- NOTE | 2019-04-09 02:56 | NUR ---
RT NOTE RECEIVED PT. ON TRACH WITH MECHANICAL VENT WITH NOTED SETTINGS. TRACH IS PATENT AND SECURED. VENT IS PLUGGED TO RED OUTLET AND ALARMS ARE SET AND AUDIBLE. BVM AND SPARE TRACH IS AT BEDSIDE. PT. HAS EQUAL CHEST RISE AND BREATHS SOUND ARE COARSE BILATERALLY. NO SOB NOTED. WILL CONTINUE TO MONITOR. Addendum: 04/09/19 at 0300 by DAVE HICKMAN RT Amended: Links added.
[2019-04-09] MEDS: METOCLOPRAMIDE HCL 10 MG TABLET GT SCH ×4 (05:28→23:29)
[2019-04-09] MEDS: GABAPENTIN 250 MG/5 ML SOLUTION GT SCH ×3 (05:28→20:03)
[2019-04-09] MEDS: ERYTHROMYCIN ETHYLSUCCINATE 200 MG/5 ML SUSPENSION GT SCH ×4 (05:28→23:29)
[2019-04-09] MEDS: BLOOD SUGAR DIAGNOSTIC 1 EACH STRIP IN SCH ×4 (05:28→23:29)
[2019-04-09] MEDS: OMEPRAZOLE 20 MG CAPSULE.DR GT SCH (05:28)
[2019-04-09] MEDS: INSULIN REGULAR, HUMAN 100 UNIT/ML 3 ML VIAL SQ PRN ×4 (05:29→23:30)
[2019-04-09 07:48] VITALS: BP 145/98
[2019-04-09] MEDS: FERROUS SULFATE - FOR SA ONLY 330 MG/7.5 ML UDC GT SCH ×2 (08:46→16:49)
[2019-04-09] MEDS: DOCUSATE SODIUM LIQ 100 MG/10 ML UDC GT SCH (08:46)
[2019-04-09] MEDS: LEVETIRACETAM SOL (5 ML) 100 MG/ML UDC GT SCH ×2 (08:47→20:03)
[2019-04-09] MEDS: ACIDOPHILUS/BULGARICUS 1 EACH TAB.CHEW GT SCH ×2 (08:47→16:49)
[2019-04-09] MEDS: SIMETHICONE SUSP 40 MG/0.6 ML BOTTLE GT SCH ×2 (08:48→20:03)
[2019-04-09] MEDS: SENNOSIDES 8.6 MG TABLET GT SCH ×2 (08:49→20:03)
[2019-04-09] MEDS: CALCIUM CARBONATE 500 MG TAB.CHEW GT SCH ×2 (08:49→16:49)
[2019-04-09] MEDS: TRILEPTAL GT SCH ×2 (08:49→20:03)
[2019-04-09] MEDS: MULTIVIT W/MINERALS 1 TAB TABLET GT SCH (08:51)
[2019-04-09] MEDS: TRIAMCINOLONE ACETONIDE 0.1% CR 15 GM TUBE TP SCH ×2 (09:00→20:03)
[2019-04-09] MEDS: Z GUARD REMEDY 4 OZ OINT TP SCH ×4 (09:00→20:04)
[2019-04-09] MEDS: HYDROGEN PEROXIDE 480 ML BOTTLE TP SCH ×2 (09:00→19:42)
[2019-04-09] MEDS: CLOTRIMAZOLE/BETAMETASONE DIPROPIONATE 15 GM TUBE TP SCH ×2 (09:00→20:03)
[2019-04-09] MEDS: VITAMINS A AND D 56.7 GM TUBE TP SCH ×2 (09:00→20:04)
[2019-04-09] MEDS: HEPARIN SODIUM, PORCINE 5000 UNITS/1 ML VIAL SQ SCH ×2 (09:08→20:03)
--- NOTE | 2019-04-09 10:30 | NUR ---
SEEN AND EXAMINED BY DR. IVAN WITH NEW ORDER NOTED AND CARRIED OUT FOR NEPHROSTOMY TUBE PLACEMENT ON 04/11/19, BMP ON 04/14/19 AND NPO 6 HOURS PRIOR TO PROCEDURE. Addendum: 04/09/19 at 1153 by LIBERTAD MACHADO RN CALLED AND SPOKE TO KELVIN. PER KELVIN SHE WILL NOT BE ABLE TO COME BY TILL AFTER SCHOOL ON THURSDAY BUT CONSENTED TO THE SURGERY WITH 2 RN VERIFICATION DONE.
[2019-04-09] MEDS: GLUCERNA 1.2 1,000 ML BOTTLE GT PRN (10:43)
--- NOTE | 2019-04-09 17:46 | NUR ---
Informed BENEFITS ANALYST Gertrude Calhoun that Dr. Braga, urologist has seen resident and ordered nephrostomy placement for Thursday. At this time, no stop date given for Amikacin.
--- NOTE | 2019-04-09 19:49 | NUR ---
RT NOTE PT. RECEIVED ON TRACH WITH MECHANICAL VENT. WITH NOTED SETTINGS. TRACH IS PATENT AND SECURED. ALARMS ARE SET AND AUDIBLE. VENT IS PLUGGED TO RED OUTLET. SPARE TRACH AND BVM IS AT BEDSIDE. PT. HAS EQUAL CHEST RISE WITH COARSE BILATERAL BREATH SOUNDS. SX MODERATE AMOUNT OF THICK GREEN SECRETIONS. NO SOB NOTED. WILL CONTINUE TO MONITOR. Addendum: 04/10/19 at 0117 by DAVE HICKMAN RT Amended: Links added.
[2019-04-09] MEDS: MAGNESIUM HYDROXIDE 30 ML UDC GT PRN (20:00)
[2019-04-09] MEDS: AMIKACIN 500 MG in IV D5W 100 ML IV SCH (20:00)
[2019-04-09] MEDS: ASCORBIC ACID 500 MG TABLET GT SCH (20:03)
[2019-04-09 20:31] VITALS: BP 126/80
[2019-04-09] MEDS: INSULIN GLARGINE, 100 UNIT/ML CARTRIDGE SQ SCH (21:05)
[2019-04-10] MEDS: ALBUTEROL FS 2.5 MG/3 ML VIAL.NEB NEB SCH ×4 (01:42→19:34)
[2019-04-10] MEDS: GABAPENTIN 250 MG/5 ML SOLUTION GT SCH ×3 (04:42→21:32)
[2019-04-10] MEDS: GLUCERNA 1.2 1,000 ML BOTTLE GT PRN ×2 (04:42→22:30)
[2019-04-10] MEDS: ERYTHROMYCIN ETHYLSUCCINATE 200 MG/5 ML SUSPENSION GT SCH ×4 (05:07→23:49)
[2019-04-10] MEDS: INSULIN REGULAR, HUMAN 100 UNIT/ML 3 ML VIAL SQ PRN ×4 (05:07→23:49)
[2019-04-10] MEDS: BLOOD SUGAR DIAGNOSTIC 1 EACH STRIP IN SCH ×4 (05:07→23:49)
[2019-04-10] MEDS: OMEPRAZOLE 20 MG CAPSULE.DR GT SCH (05:07)
[2019-04-10] MEDS: METOCLOPRAMIDE HCL 10 MG TABLET GT SCH ×4 (05:07→23:49)
[2019-04-10 08:08] VITALS: BP 105/69
--- NOTE | 2019-04-10 08:16 | NUR ---
RT NOTE: REC'D TRACH PT ON [facility] VENT ON NOTED SETTINGS PER MD ORDERS. TRACH IS PATENT AND SECURED. TRACH CARE DONE. TILT WALL SUPERVISOR DONE. Q6 BREATHING TX GIVEN WITH NO ADVERSE REACTION NOTED. SX DONE PRN. VENT PLUGGED INTO RED OUTLET. ALARMS ON AND AUDIBLE. KATHARINEU BAG @ BEDSIDE. NO RESP DISTRESS NOTED AT THIS TIME. WILL CONT TO MONITOR PT. Addendum: 04/10/19 at 0817 by MARCO FRANCOIS RT Amended: Links added.
[2019-04-10] MEDS: LEVETIRACETAM SOL (5 ML) 100 MG/ML UDC GT SCH ×2 (09:18→21:31)
[2019-04-10] MEDS: FERROUS SULFATE - FOR SA ONLY 330 MG/7.5 ML UDC GT SCH ×2 (09:18→17:17)
[2019-04-10] MEDS: DOCUSATE SODIUM LIQ 100 MG/10 ML UDC GT SCH (09:18)
[2019-04-10] MEDS: ACIDOPHILUS/BULGARICUS 1 EACH TAB.CHEW GT SCH ×2 (09:19→17:17)
[2019-04-10] MEDS: SIMETHICONE SUSP 40 MG/0.6 ML BOTTLE GT SCH ×2 (09:19→21:31)
[2019-04-10] MEDS: TRILEPTAL GT SCH ×2 (09:20→21:32)
[2019-04-10] MEDS: CALCIUM CARBONATE 500 MG TAB.CHEW GT SCH ×2 (09:21→17:17)
[2019-04-10] MEDS: SENNOSIDES 8.6 MG TABLET GT SCH ×2 (09:21→21:32)
[2019-04-10] MEDS: MULTIVIT W/MINERALS 1 TAB TABLET GT SCH (09:22)
[2019-04-10] MEDS: HEPARIN SODIUM, PORCINE 5000 UNITS/1 ML VIAL SQ SCH (09:24)
[2019-04-10] MEDS: TRIAMCINOLONE ACETONIDE 0.1% CR 15 GM TUBE TP SCH ×2 (09:26→21:32)
[2019-04-10] MEDS: VITAMINS A AND D 56.7 GM TUBE TP SCH ×2 (09:26→21:32)
[2019-04-10] MEDS: Z GUARD REMEDY 4 OZ OINT TP SCH ×4 (09:26→21:32)
[2019-04-10] MEDS: CLOTRIMAZOLE/BETAMETASONE DIPROPIONATE 15 GM TUBE TP SCH ×2 (09:26→21:32)
[2019-04-10] MEDS: HYDROGEN PEROXIDE 480 ML BOTTLE TP SCH ×2 (09:51→19:35)
--- NOTE | 2019-04-10 09:52 | NUR ---
Informed Dr. Luis of the nephrostomy tube placement tomorrow with order to hold evening dose of Heparin. Order carried out.
--- NOTE | 2019-04-10 15:10 | NUR ---
Made a follow-up call to ER admitting if patient will need a new account for the procedure (L nephrostomy placement) in AM. According to Beckie from ER admitting to follow-up with regular staff in AM. Request for new account faxed to admitting department. Endorsed.
[2019-04-10 20:01] VITALS: BP 131/77
[2019-04-10] MEDS: ASCORBIC ACID 500 MG TABLET GT SCH (21:32)
[2019-04-10] MEDS: INSULIN GLARGINE, 100 UNIT/ML CARTRIDGE SQ SCH (21:33)
[2019-04-11] MEDS: ALBUTEROL FS 2.5 MG/3 ML VIAL.NEB NEB SCH ×4 (01:18→19:38)
[2019-04-11] MEDS: GABAPENTIN 250 MG/5 ML SOLUTION GT SCH ×3 (05:20→20:08)
[2019-04-11] MEDS: INSULIN REGULAR, HUMAN 100 UNIT/ML 3 ML VIAL SQ PRN ×2 (05:20→23:13)
[2019-04-11] MEDS: METOCLOPRAMIDE HCL 10 MG TABLET GT SCH ×4 (05:20→23:12)
[2019-04-11] MEDS: BLOOD SUGAR DIAGNOSTIC 1 EACH STRIP IN SCH ×4 (05:20→23:12)
[2019-04-11] MEDS: OMEPRAZOLE 20 MG CAPSULE.DR GT SCH (05:20)
[2019-04-11] MEDS: ERYTHROMYCIN ETHYLSUCCINATE 200 MG/5 ML SUSPENSION GT SCH ×4 (05:20→23:12)
[2019-04-11 07:53] VITALS: BP 127/55
--- NOTE | 2019-04-11 08:00 | NUR ---
Called Radiology to ask what time nephrostomy tube placement will be done today. They said they will call.
[2019-04-11] MEDS: LEVETIRACETAM SOL (5 ML) 100 MG/ML UDC GT SCH ×2 (08:05→20:08)
[2019-04-11] MEDS: SIMETHICONE SUSP 40 MG/0.6 ML BOTTLE GT SCH ×2 (08:06→20:08)
[2019-04-11] MEDS: DOCUSATE SODIUM LIQ 100 MG/10 ML UDC GT SCH (08:06)
[2019-04-11] MEDS: ACIDOPHILUS/BULGARICUS 1 EACH TAB.CHEW GT SCH ×2 (08:06→16:23)
[2019-04-11] MEDS: FERROUS SULFATE - FOR SA ONLY 330 MG/7.5 ML UDC GT SCH ×2 (08:06→16:23)
[2019-04-11] MEDS: TRILEPTAL GT SCH ×2 (08:08→20:08)
[2019-04-11] MEDS: MULTIVIT W/MINERALS 1 TAB TABLET GT SCH (08:09)
[2019-04-11] MEDS: SENNOSIDES 8.6 MG TABLET GT SCH ×2 (08:09→20:08)
[2019-04-11] MEDS: CALCIUM CARBONATE 500 MG TAB.CHEW GT SCH ×2 (08:09→16:23)
--- NOTE | 2019-04-11 08:45 | NUR ---
Received order to do PT, PTT. Asked Radiology again what time procedure will be done. No scheduled time yet.
[2019-04-11] MEDS: HYDROGEN PEROXIDE 480 ML BOTTLE TP SCH ×2 (09:00→20:15)
[2019-04-11] MEDS: VITAMINS A AND D 56.7 GM TUBE TP SCH ×2 (09:37→20:09)
[2019-04-11] MEDS: TRIAMCINOLONE ACETONIDE 0.1% CR 15 GM TUBE TP SCH ×2 (09:38→20:08)
[2019-04-11] MEDS: Z GUARD REMEDY 4 OZ OINT TP SCH ×4 (09:38→20:09)
[2019-04-11] MEDS: CLOTRIMAZOLE/BETAMETASONE DIPROPIONATE 15 GM TUBE TP SCH ×2 (09:38→20:08)
--- NOTE | 2019-04-11 10:00 | NUR ---
Radiology called and said that nephrostomy tube placement will be done around 1-2pm today.
--- NOTE | 2019-04-11 14:00 | NUR ---
Nursing pit supervisor Aleta informed charge nurse that nephrostomy tube placement will done tomorrow. Called Radiology and confirmed with Floridalma. Informed Dr Luis. DC'd NPO, resumed GT feeding. Pt will be placed on NPO again tonight at midnight. Informed pt's sister Beckie. Addendum: 04/11/19 at 1927 by SARITA GOMEZ RN NPO 6 hours prior to nephrostomy tube placement
--- NOTE | 2019-04-11 14:19 | NUR ---
RT NOTE: REC'D TRACH PT ON [facility] VENT ON NOTED SETTINGS PER MD ORDERS. TRACH IS PATENT AND SECURED. TRACH CARE DONE. SAFETY COMPLIANCE SPECIALIST DONE. SX DONE PRN. VENT PLUGGED INTO RED OUTLET. ALARMS ON AND AUDIBLE. NEVA DELGADO @ BEDSIDE. NO RESP DISTRESS NOTED AT THIS TIME. WILL CONT TO MONITOR PT. Addendum: 04/11/19 at 1419 by MARCO FRANCOIS RT Amended: Links added.
--- NOTE | 2019-04-11 16:39 | NUR ---
Asked NAN Loredo for Amikacin stop date. She ordered to give Amikacin for 7 more days.
[2019-04-11 18:05] LABS: CREATININE 2.9 mg/dL (0.6-1.3)
[2019-04-11 19:49] VITALS: BP 128/73
[2019-04-11] MEDS: AMIKACIN 500 MG in IV D5W 100 ML IV SCH (20:00)
[2019-04-11] MEDS: ASCORBIC ACID 500 MG TABLET GT SCH (20:08)
--- NOTE | 2019-04-11 20:36 | NUR ---
PT RCVD TRACH'D ON COOL AEROSOL WITH CHARTED SETTINGS. PT APRIL TX WELL. SX DONE. PT TRACH IS PATENT AND SECURE. VENT ALARMS APPEAR TO BE FUNCTIONING PROPERLY. VENT PLUGGED INTO RED OUTLET. AMBU BAG AT BEDSIDE. NO SOB NOTED. Addendum: 04/11/19 at 2037 by MICH AVILA RT Amended: Links added. Addendum: 04/11/19 at 2042 by MICH AVILA RT CORRECTION: PT RCVD TRACH'D ON MECHANICAL VENT NOT COOL AEROSOL.
[2019-04-11] MEDS: INSULIN GLARGINE, 100 UNIT/ML CARTRIDGE SQ SCH (21:46)
[2019-04-12] MEDS: ALBUTEROL FS 2.5 MG/3 ML VIAL.NEB NEB SCH ×4 (00:37→19:22)
[2019-04-12] MEDS: GABAPENTIN 250 MG/5 ML SOLUTION GT SCH ×3 (05:00→20:13)
[2019-04-12] MEDS: ERYTHROMYCIN ETHYLSUCCINATE 200 MG/5 ML SUSPENSION GT SCH ×4 (05:03→23:27)
[2019-04-12] MEDS: OMEPRAZOLE 20 MG CAPSULE.DR GT SCH (05:03)
[2019-04-12] MEDS: METOCLOPRAMIDE HCL 10 MG TABLET GT SCH ×4 (05:04→23:27)
[2019-04-12] MEDS: BLOOD SUGAR DIAGNOSTIC 1 EACH STRIP IN SCH ×4 (05:46→23:27)
[2019-04-12] MEDS: INSULIN REGULAR, HUMAN 100 UNIT/ML 3 ML VIAL SQ PRN ×3 (05:47→23:27)
[2019-04-12 07:04] LABS: BASOPHILS # (AUTO) 0.1 /CMM (0.0-0.2); BASOPHILS % (AUTO) 0.7 % (0.0-2.0); EOSINOPHILS % (AUTO) 6.8 % (0.0-6.0); HEMATOCRIT 26 % (33-45); HEMOGLOBIN 8.9 g/dL (11.5-14.8); LYMPHOCYTES # (AUTO) 4.2 /CMM (0.8-4.8); MEAN CORPUSCULAR HGB CONC 34 g/dl (31.0-36.0); MEAN CORPUSCULAR VOLUME 97 fL (82-100); MONOCYTES # (AUTO) 1.3 /CMM (0.1-1.30); MONOCYTES % (AUTO) 9.5 % (2.0-12.0); PLATELET COUNT (AUTO) 385 /CMM (150-450); RED BLOOD CELL COUNT(AUTO) 2.73 MIL/uL (4.0-5.2); WHITE BLOOD COUNT (AUTO) 13.4 K/uL (4.3-11.0)
[2019-04-12 07:25] LABS: CALCIUM, SERUM 11.9 mg/dL (8.5-10.1); CREATININE 2.9 mg/dL (0.6-1.3); MAGNESIUM 2.9 mg/dL (1.8-2.4); PHOSPHORUS 5.7 mg/dL (2.5-4.9); POTASSIUM 3.5 mmol/L (3.5-5.1)
[2019-04-12 08:06] VITALS: BP 127/73
[2019-04-12] MEDS: LEVETIRACETAM SOL (5 ML) 100 MG/ML UDC GT SCH ×2 (09:00→20:13)
[2019-04-12] MEDS: FERROUS SULFATE - FOR SA ONLY 330 MG/7.5 ML UDC GT SCH ×2 (09:00→16:54)
[2019-04-12] MEDS: SENNOSIDES 8.6 MG TABLET GT SCH ×2 (09:00→20:14)
[2019-04-12] MEDS: SIMETHICONE SUSP 40 MG/0.6 ML BOTTLE GT SCH ×2 (09:00→20:13)
[2019-04-12] MEDS: DOCUSATE SODIUM LIQ 100 MG/10 ML UDC GT SCH (09:00)
[2019-04-12] MEDS: CALCIUM CARBONATE 500 MG TAB.CHEW GT SCH ×2 (09:00→16:54)
[2019-04-12] MEDS: MULTIVIT W/MINERALS 1 TAB TABLET GT SCH (09:00)
[2019-04-12] MEDS: ACIDOPHILUS/BULGARICUS 1 EACH TAB.CHEW GT SCH ×2 (09:00→16:54)
[2019-04-12] MEDS: TRILEPTAL GT SCH ×2 (09:00→20:14)
[2019-04-12] MEDS: Z GUARD REMEDY 4 OZ OINT TP SCH ×4 (09:05→20:14)
[2019-04-12] MEDS: VITAMINS A AND D 56.7 GM TUBE TP SCH ×2 (09:05→20:15)
[2019-04-12] MEDS: TRIAMCINOLONE ACETONIDE 0.1% CR 15 GM TUBE TP SCH ×2 (09:05→20:14)
[2019-04-12] MEDS: CLOTRIMAZOLE/BETAMETASONE DIPROPIONATE 15 GM TUBE TP SCH ×2 (09:05→20:14)
[2019-04-12] MEDS: HYDROGEN PEROXIDE 480 ML BOTTLE TP SCH ×2 (09:56→21:00)
--- NOTE | 2019-04-12 10:01 | NUR ---
RT NOTE: REC'D TRACH PT ON [facility] VENT ON NOTED SETTINGS PER MD ORDERS. TRACH CARE DONE. REFRIGERATION MECHANIC HELPER DONE. SX DONE PRN. VENT PLUGGED INTO RED OUTLET. ALARMS ON AND AUDIBLE. NEVA DELGADO @ BEDSIDE. NO RESP DISTRESS NOTED AT THIS TIME. WILL CONT TO MONITOR PT. Addendum: 04/12/19 at 1002 by MARCO FRANCOIS RT Amended: Links added.
--- NOTE | 2019-04-12 10:32 | NUR ---
Relayed lab results to Dr Luis. He said he will see pt today.
--- NOTE | 2019-04-12 12:09 | NUR ---
STEPHEN left a voicemail for the pt.s sister, Beckie Chu [phone] reminding family about the IDT meeting this Monday, April 15, 2019 in the activities room from 12:30pm-1:30pm. STEPHEN left voicemail asking Beckie to inform STEPHEN if family is able to be in attendance or participate via phone conference.
--- NOTE | 2019-04-12 13:30 | NUR ---
CT/RN PT TRANSFER TO CT SCAN FOR THE LEFT NEPHROSTOMY PLACEMENT .PT IS ON THE VENT AC MODE,FIO2-100%.V/S STABLE ,AFEBRILE.NO PAIN REPORTED AT THIS TIME.
--- NOTE | 2019-04-12 14:10 | NUR ---
CT/RN PT IS ON THE CT SCAN BED ON THE LEFT SIDE.DR KHANNA AT BED SIDE.VERSED 0.5 MG IV GIVEN ORDERED.BP STABLE.O2-100%.CONTINUE MONITORING.
--- NOTE | 2019-04-12 15:30 | NUR ---
CT/RN PT IS BACK TO HER ROOM-266. NEW LEFT SIDE NEPHROSTOMY PLACED.PT TOLERATED PROCEDURE WELL,NO S/S OF BLEEDING NOTED.V/S STABLE AFEBRILE.NO PAIN REPORTED AT THIS TIME.FAMILY AT BED SIDE.URINE FROM THE KIDNEY SEND TO LABORATORY.
--- NOTE | 2019-04-12 16:00 | NUR ---
Pt has a new left nephrostomy tube. Pt awake, BP 153/73 HR 88 T 98.7 R 17 O2 sat 100%. Dr Luis aware. Received order for nephrostomy care. Resumed pt's feeding and Heparin order. Pt's sister at bedside.
[2019-04-12] MEDS: GLUCERNA 1.2 1,000 ML BOTTLE GT PRN (18:21)
[2019-04-12 20:08] VITALS: BP 119/71
[2019-04-12] MEDS: ASCORBIC ACID 500 MG TABLET GT SCH (20:14)
[2019-04-12] MEDS: HEPARIN SODIUM, PORCINE 5000 UNITS/1 ML VIAL SQ SCH (20:14)
[2019-04-12] MEDS: INSULIN GLARGINE, 100 UNIT/ML CARTRIDGE SQ SCH (22:04)
--- NOTE | 2019-04-12 23:54 | NUR ---
RT NO RESP DISTRESS NOTED AT THIS TIME. WILL CONT TO MONITOR PT. Addendum: 04/12/19 at 6714 by WM EUGENE RT Amended: Links added.
[2019-04-13] MEDS: ALBUTEROL FS 2.5 MG/3 ML VIAL.NEB NEB SCH ×4 (00:31→19:52)
[2019-04-13] MEDS: ERYTHROMYCIN ETHYLSUCCINATE 200 MG/5 ML SUSPENSION GT SCH ×3 (05:04→17:44)
[2019-04-13] MEDS: GABAPENTIN 250 MG/5 ML SOLUTION GT SCH ×3 (05:04→21:59)
[2019-04-13] MEDS: METOCLOPRAMIDE HCL 10 MG TABLET GT SCH ×3 (05:05→17:44)
[2019-04-13] MEDS: OMEPRAZOLE 20 MG CAPSULE.DR GT SCH (05:05)
[2019-04-13] MEDS: BLOOD SUGAR DIAGNOSTIC 1 EACH STRIP IN SCH ×3 (05:38→17:44)
[2019-04-13] MEDS: INSULIN REGULAR, HUMAN 100 UNIT/ML 3 ML VIAL SQ PRN ×3 (05:39→17:45)
[2019-04-13] MEDS: HYDROGEN PEROXIDE 480 ML BOTTLE TP SCH ×2 (07:24→21:00)
[2019-04-13] MEDS: ACIDOPHILUS/BULGARICUS 1 EACH TAB.CHEW GT SCH ×2 (09:18→17:44)
[2019-04-13] MEDS: SIMETHICONE SUSP 40 MG/0.6 ML BOTTLE GT SCH ×2 (09:18→21:58)
[2019-04-13] MEDS: DOCUSATE SODIUM LIQ 100 MG/10 ML UDC GT SCH (09:18)
[2019-04-13] MEDS: FERROUS SULFATE - FOR SA ONLY 330 MG/7.5 ML UDC GT SCH ×2 (09:18→17:44)
[2019-04-13] MEDS: LEVETIRACETAM SOL (5 ML) 100 MG/ML UDC GT SCH ×2 (09:18→21:58)
[2019-04-13] MEDS: TRILEPTAL GT SCH ×2 (09:19→21:59)
[2019-04-13] MEDS: CALCIUM CARBONATE 500 MG TAB.CHEW GT SCH ×2 (09:19→17:44)
[2019-04-13] MEDS: SENNOSIDES 8.6 MG TABLET GT SCH ×2 (09:19→21:59)
[2019-04-13] MEDS: MULTIVIT W/MINERALS 1 TAB TABLET GT SCH (09:19)
[2019-04-13] MEDS: GLUCERNA 1.2 1,000 ML BOTTLE GT PRN (09:20)
[2019-04-13] MEDS: HEPARIN SODIUM, PORCINE 5000 UNITS/1 ML VIAL SQ SCH ×2 (09:20→21:59)
[2019-04-13] MEDS: CLOTRIMAZOLE/BETAMETASONE DIPROPIONATE 15 GM TUBE TP SCH ×2 (09:20→22:00)
[2019-04-13] MEDS: Z GUARD REMEDY 4 OZ OINT TP SCH ×4 (09:20→21:59)
[2019-04-13] MEDS: VITAMINS A AND D 56.7 GM TUBE TP SCH ×2 (09:20→21:59)
[2019-04-13] MEDS: TRIAMCINOLONE ACETONIDE 0.1% CR 15 GM TUBE TP SCH ×2 (09:20→21:59)
--- NOTE | 2019-04-13 13:00 | NUR ---
The pt.'s family was not able to attend this month's Family Support Group.
[2019-04-13 14:57] VITALS: BP 118/69
--- NOTE | 2019-04-13 16:48 | NUR ---
RT NOTE PT. RECEIVED ON TRACH ON MECHANICAL VENT. WITH NOTED SETTINGS. VENT IS PLUGGED TO RED OUTLET AND ALARMS ARE SET AND AUDIBLE. TRACH IS PATENT AND SECURED. SPARE TRACH AND BVM IS AT BEDSIDE. NO SOB NOTED. PT. TOLERATED BREATHING TX'S WELL. PT. HAS EQUAL CHEST RISE WITH COARSE BILATERAL BREATH SOUND. SX MODERATE TO SMALL AMOUNT OF GREEN AND CLEAR THIN SECRETIONS T/O THE DAY. WILL PASS REPORT TO LEAD NET SOFTWARE DEVELOPER. Addendum: 04/13/19 at 1653 by DAVE HICKMAN RT Amended: Links added.
--- NOTE | 2019-04-13 19:52 | NUR ---
RECEIVED TRACH PT ON [facility] VENT WITH NOTED SETTINGS PER MD ORDERS. PT IS AWAKE, ALERT ,RESPONDS TO STIMULI WHEN SUCTIONED AND NON VERBAL.TRACH IS PATENT AND SECURED. RN INVASIVE DONE. Q6 BREATHING TX GIVEN. NO ADVERSE REACTION NOTED. SX DONE PRN. VENT PLUGGED INTO RED OUTLET. ALARMS ON AND AUDIBLE. AMBU BAG @ BEDSIDE. NO RESP DISTRESS AT THIS TIME. WILL CONT TO MONITOR PT.
[2019-04-13 20:13] VITALS: BP 114/64
[2019-04-13] MEDS: AMIKACIN 500 MG in IV D5W 100 ML IV SCH (20:31)
[2019-04-13] MEDS: ASCORBIC ACID 500 MG TABLET GT SCH (21:59)
[2019-04-13] MEDS: INSULIN GLARGINE, 100 UNIT/ML CARTRIDGE SQ SCH (22:29)
[2019-04-14] MEDS: ERYTHROMYCIN ETHYLSUCCINATE 200 MG/5 ML SUSPENSION GT SCH ×4 (00:01→17:16)
[2019-04-14] MEDS: METOCLOPRAMIDE HCL 10 MG TABLET GT SCH ×4 (00:01→17:16)
[2019-04-14] MEDS: BLOOD SUGAR DIAGNOSTIC 1 EACH STRIP IN SCH ×4 (00:01→17:53)
[2019-04-14] MEDS: INSULIN REGULAR, HUMAN 100 UNIT/ML 3 ML VIAL SQ PRN ×4 (00:03→17:54)
[2019-04-14] MEDS: ALBUTEROL FS 2.5 MG/3 ML VIAL.NEB NEB SCH ×4 (01:06→20:21)
[2019-04-14] MEDS: GABAPENTIN 250 MG/5 ML SOLUTION GT SCH ×3 (05:44→21:32)
[2019-04-14] MEDS: OMEPRAZOLE 20 MG CAPSULE.DR GT SCH (05:45)
[2019-04-14] MEDS: GLUCERNA 1.2 1,000 ML BOTTLE GT PRN (05:45)
[2019-04-14 07:32] VITALS: BP 103/73
[2019-04-14] MEDS: HYDROGEN PEROXIDE 480 ML BOTTLE TP SCH ×2 (07:38→21:32)
[2019-04-14 07:39] LABS: CALCIUM, SERUM 11.5 mg/dL (8.5-10.1); CREATININE 2.9 mg/dL (0.6-1.3); POTASSIUM 3.5 mmol/L (3.5-5.1)
[2019-04-14] MEDS: MULTIVIT W/MINERALS 1 TAB TABLET GT SCH (09:38)
[2019-04-14] MEDS: ACIDOPHILUS/BULGARICUS 1 EACH TAB.CHEW GT SCH ×2 (09:38→17:16)
[2019-04-14] MEDS: FERROUS SULFATE - FOR SA ONLY 330 MG/7.5 ML UDC GT SCH ×2 (09:38→17:16)
[2019-04-14] MEDS: SIMETHICONE SUSP 40 MG/0.6 ML BOTTLE GT SCH ×2 (09:38→21:32)
[2019-04-14] MEDS: CALCIUM CARBONATE 500 MG TAB.CHEW GT SCH ×2 (09:38→17:16)
[2019-04-14] MEDS: DOCUSATE SODIUM LIQ 100 MG/10 ML UDC GT SCH (09:38)
[2019-04-14] MEDS: CLOTRIMAZOLE/BETAMETASONE DIPROPIONATE 15 GM TUBE TP SCH ×2 (09:38→21:32)
[2019-04-14] MEDS: LEVETIRACETAM SOL (5 ML) 100 MG/ML UDC GT SCH ×2 (09:38→21:32)
[2019-04-14] MEDS: HEPARIN SODIUM, PORCINE 5000 UNITS/1 ML VIAL SQ SCH (09:38)
[2019-04-14] MEDS: SENNOSIDES 8.6 MG TABLET GT SCH ×2 (09:38→21:32)
[2019-04-14] MEDS: TRILEPTAL GT SCH ×2 (09:38→21:32)
[2019-04-14] MEDS: TRIAMCINOLONE ACETONIDE 0.1% CR 15 GM TUBE TP SCH ×2 (09:38→21:32)
[2019-04-14] MEDS: Z GUARD REMEDY 4 OZ OINT TP SCH ×4 (09:39→21:32)
[2019-04-14] MEDS: VITAMINS A AND D 56.7 GM TUBE TP SCH ×2 (09:39→21:32)
--- NOTE | 2019-04-14 12:30 | NUR ---
Received a call to Beckie resident's sister, updated her of patient's condition including result of BMP taken today showing 2.9 Creatinine level, nephrostomy tube with hematuria which is expected S/P nephrostomy tube placement. According to Beckie she will not be to attend IDT meeting tomorrow, but will come after 4:00 PM to get an update. SSD informed. Endorsed to incoming shift.
--- NOTE | 2019-04-14 14:05 | NUR ---
Spoke with Dr. Braga reported BMP result with Creatinine level of 2.9 which is unchanged from the last BMP 0n 04/11. According to MD to leave the nephrostomy tube for a couple more days and he said bleeding from nephrostomy tube is expected because it is newly placed. Endorsed.
--- NOTE | 2019-04-14 16:23 | NUR ---
RT NOTE PT. RECEIVED ON TRACH ON MECHANICAL VENT WITH NOTED SETTINGS. VENT IS PLUGGED TO RED OUTLET AND ALARMS ARE SET AND AUDIBLE. SPARE TRACH AND BVM IS AT BEDSIDE. TRACH IS PATENT AND SECURED. PT. HAS EQUAL CHEST RISE WITH COARSE BILATERAL BREATH SOUNDS. SX MODERATE AMOUNT OF THIN GREEN SECRETIONS T/O THE DAY. NO SOB NOTED. Addendum: 04/14/19 at 1627 by DAVE HICKMAN RT Amended: Links added.
--- NOTE | 2019-04-14 18:06 | NUR ---
Informed Dr. Luis that according to Dr. Braga, it is OK to keep nephrostomy tube for now and bleeding from nephrostomy tube is expected as it is newly inserted tube, however MD Luis said to hold Heparin if bleeding persist. Endorsed. Resident's sister Beckie informed. Appreciated the call.
[2019-04-14 20:26] VITALS: BP 112/54
[2019-04-14] MEDS: ASCORBIC ACID 500 MG TABLET GT SCH (21:32)
[2019-04-14] MEDS: INSULIN GLARGINE, 100 UNIT/ML CARTRIDGE SQ SCH (22:10)
[2019-04-15] MEDS: ALBUTEROL FS 2.5 MG/3 ML VIAL.NEB NEB SCH ×4 (00:50→19:44)
[2019-04-15] MEDS: GLUCERNA 1.2 1,000 ML BOTTLE GT PRN ×2 (01:00→18:21)
[2019-04-15] MEDS: INSULIN REGULAR, HUMAN 100 UNIT/ML 3 ML VIAL SQ PRN ×5 (01:03→23:30)
[2019-04-15] MEDS: BLOOD SUGAR DIAGNOSTIC 1 EACH STRIP IN SCH ×5 (05:27→23:30)
[2019-04-15] MEDS: GABAPENTIN 250 MG/5 ML SOLUTION GT SCH ×3 (05:27→21:11)
[2019-04-15] MEDS: METOCLOPRAMIDE HCL 10 MG TABLET GT SCH ×5 (05:27→23:29)
[2019-04-15] MEDS: ERYTHROMYCIN ETHYLSUCCINATE 200 MG/5 ML SUSPENSION GT SCH ×3 (05:27→11:28)
[2019-04-15] MEDS: OMEPRAZOLE 20 MG CAPSULE.DR GT SCH (05:27)
--- NOTE | 2019-04-15 06:51 | NUR ---
Nephrostomy output still bloody ,no clots noted.Will continue to monitor.
[2019-04-15 08:11] VITALS: BP 133/74
[2019-04-15] MEDS: DOCUSATE SODIUM LIQ 100 MG/10 ML UDC GT SCH (09:00)
[2019-04-15] MEDS: HYDROGEN PEROXIDE 480 ML BOTTLE TP SCH ×2 (09:00→20:20)
[2019-04-15] MEDS: FERROUS SULFATE - FOR SA ONLY 330 MG/7.5 ML UDC GT SCH ×2 (09:00→17:29)
[2019-04-15] MEDS: LEVETIRACETAM SOL (5 ML) 100 MG/ML UDC GT SCH ×2 (09:00→21:11)
[2019-04-15] MEDS: TRIAMCINOLONE ACETONIDE 0.1% CR 15 GM TUBE TP SCH (09:54)
[2019-04-15] MEDS: CLOTRIMAZOLE/BETAMETASONE DIPROPIONATE 15 GM TUBE TP SCH ×2 (09:54→21:12)
[2019-04-15] MEDS: SENNOSIDES 8.6 MG TABLET GT SCH ×2 (09:54→21:11)
[2019-04-15] MEDS: ACIDOPHILUS/BULGARICUS 1 EACH TAB.CHEW GT SCH ×2 (09:54→17:29)
[2019-04-15] MEDS: MULTIVIT W/MINERALS 1 TAB TABLET GT SCH (09:54)
[2019-04-15] MEDS: SIMETHICONE SUSP 40 MG/0.6 ML BOTTLE GT SCH ×2 (09:54→21:11)
[2019-04-15] MEDS: TRILEPTAL GT SCH ×2 (09:54→21:11)
[2019-04-15] MEDS: Z GUARD REMEDY 4 OZ OINT TP SCH ×4 (09:54→21:12)
[2019-04-15] MEDS: CALCIUM CARBONATE 500 MG TAB.CHEW GT SCH ×2 (09:54→17:29)
[2019-04-15] MEDS: VITAMINS A AND D 56.7 GM TUBE TP SCH ×2 (09:55→21:13)
--- NOTE | 2019-04-15 13:50 | NUR ---
IDT meeting held today. Pt on Reglan and Erythromycin for gastroparesis. Dr Luis ordered to DC Erythromycin.
--- NOTE | 2019-04-15 16:00 | NUR ---
Relayed left nephrostomy urine culture to NAN Loredo. She said she will see pt today. No new order.
--- NOTE | 2019-04-15 16:25 | NUR ---
INTERDISCIPLINARY PLAN OF CARE CONFERENCE took place today. The patients responsible green party, Beckie Chu was not able to attend or participate via phone conference. Charge nurse discussed UTI and Tx with Amikacin, and nephrostomy tube. Dr. Felix and Interdisciplinary team discussed the plan of care in detail. Current orders as well as treatments and medications were reviewed. Please see other disciplines IDT notes for further details.
--- NOTE | 2019-04-15 17:02 | NUR ---
RT NOTE: REC'D TRACH PT ON [facility] VENT ON NOTED SETTINGS PER MD ORDERS. TRACH IS PATENT AND SECURED. TRACH CARE DONE. PLAYGROUND MONITOR DONE. SX DONE PRN. VENT PLUGGED INTO RED OUTLET. ALARMS ON AND AUDIBLE. NEVA DELGADO @ BEDSIDE. NO RESP DISTRESS NOTED AT THIS TIME. WILL CONT TO MONITOR PT. Addendum: 04/15/19 at 1703 by JULIETH REY RT Amended: Links added.
[2019-04-15] MEDS ORDERED: POVIDONE-IODINE OINT 28.4 GM TUBE TP SCH (19:00)
[2019-04-15 20:16] VITALS: BP 138/74
[2019-04-15] MEDS ORDERED: HEPARIN SODIUM, PORCINE 5000 UNITS/1 ML VIAL SQ SCH (21:00)
[2019-04-15] MEDS: ASCORBIC ACID 500 MG TABLET GT SCH (21:11)
[2019-04-15] MEDS: CEFEPIME 1 GM in IV D5W 50 ML IV SCH (21:12)
[2019-04-15] MEDS: INSULIN GLARGINE, 100 UNIT/ML CARTRIDGE SQ SCH (21:49)
[2019-04-16] MEDS: ALBUTEROL FS 2.5 MG/3 ML VIAL.NEB NEB SCH ×4 (01:16→19:31)
[2019-04-16] MEDS: OMEPRAZOLE 20 MG CAPSULE.DR GT SCH (05:26)
[2019-04-16] MEDS: METOCLOPRAMIDE HCL 10 MG TABLET GT SCH ×4 (05:26→23:45)
[2019-04-16] MEDS: INSULIN REGULAR, HUMAN 100 UNIT/ML 3 ML VIAL SQ PRN ×2 (05:26→23:45)
[2019-04-16] MEDS: BLOOD SUGAR DIAGNOSTIC 1 EACH STRIP IN SCH ×4 (05:26→23:45)
[2019-04-16] MEDS: GABAPENTIN 250 MG/5 ML SOLUTION GT SCH ×3 (05:26→21:11)
[2019-04-16 08:21] VITALS: BP 116/54
[2019-04-16] MEDS: HYDROGEN PEROXIDE 480 ML BOTTLE TP SCH ×2 (09:00→21:00)
[2019-04-16] MEDS: SIMETHICONE SUSP 40 MG/0.6 ML BOTTLE GT SCH ×2 (09:32→21:10)
[2019-04-16] MEDS: FERROUS SULFATE - FOR SA ONLY 330 MG/7.5 ML UDC GT SCH ×2 (09:32→16:44)
[2019-04-16] MEDS: LEVETIRACETAM SOL (5 ML) 100 MG/ML UDC GT SCH ×2 (09:32→21:10)
[2019-04-16] MEDS: ACIDOPHILUS/BULGARICUS 1 EACH TAB.CHEW GT SCH ×2 (09:32→16:44)
[2019-04-16] MEDS: DOCUSATE SODIUM LIQ 100 MG/10 ML UDC GT SCH (09:32)
[2019-04-16] MEDS: MULTIVIT W/MINERALS 1 TAB TABLET GT SCH (09:33)
[2019-04-16] MEDS: CLOTRIMAZOLE/BETAMETASONE DIPROPIONATE 15 GM TUBE TP SCH ×2 (09:33→21:11)
[2019-04-16] MEDS: Z GUARD REMEDY 4 OZ OINT TP SCH ×4 (09:33→21:11)
[2019-04-16] MEDS: SENNOSIDES 8.6 MG TABLET GT SCH ×2 (09:33→21:11)
[2019-04-16] MEDS: CALCIUM CARBONATE 500 MG TAB.CHEW GT SCH ×2 (09:33→16:44)
[2019-04-16] MEDS: TRILEPTAL GT SCH ×2 (09:33→21:11)
[2019-04-16] MEDS: VITAMINS A AND D 56.7 GM TUBE TP SCH ×2 (09:33→21:11)
[2019-04-16] MEDS: CEFEPIME 1 GM in IV D5W 50 ML IV SCH ×2 (09:34→21:00)
[2019-04-16 20:22] VITALS: BP 120/69
[2019-04-16] MEDS: ASCORBIC ACID 500 MG TABLET GT SCH (21:11)
[2019-04-16] MEDS: INSULIN GLARGINE, 100 UNIT/ML CARTRIDGE SQ SCH (21:12)
[2019-04-17] MEDS: ALBUTEROL FS 2.5 MG/3 ML VIAL.NEB NEB SCH ×4 (01:06→19:27)
[2019-04-17] MEDS: BLOOD SUGAR DIAGNOSTIC 1 EACH STRIP IN SCH ×4 (05:40→23:54)
[2019-04-17] MEDS: GABAPENTIN 250 MG/5 ML SOLUTION GT SCH ×3 (05:40→20:00)
[2019-04-17] MEDS: OMEPRAZOLE 20 MG CAPSULE.DR GT SCH (05:40)
[2019-04-17] MEDS: METOCLOPRAMIDE HCL 10 MG TABLET GT SCH ×4 (05:40→23:54)
[2019-04-17] MEDS: INSULIN REGULAR, HUMAN 100 UNIT/ML 3 ML VIAL SQ PRN ×4 (05:41→23:56)
[2019-04-17 07:12] LABS: BASOPHILS # (AUTO) 0.1 /CMM (0.0-0.2); BASOPHILS % (AUTO) 0.9 % (0.0-2.0); EOSINOPHILS % (AUTO) 6.6 % (0.0-6.0); HEMATOCRIT 24 % (33-45); HEMOGLOBIN 8.2 g/dL (11.5-14.8); LYMPHOCYTES # (AUTO) 3.4 /CMM (0.8-4.8); LYMPHOCYTES % (AUTO) 30.4 % (20.0-44.0); MEAN CORPUSCULAR HGB CONC 34 g/dl (31.0-36.0); MEAN CORPUSCULAR VOLUME 97 fL (82-100); MONOCYTES # (AUTO) 1.4 /CMM (0.1-1.30); MONOCYTES % (AUTO) 12.5 % (2.0-12.0); NEUTROPHILS # (AUTO) 5.5 /CMM (1.8-8.9); NEUTROPHILS % (AUTO) 49.6 % (43.0-81.0); PLATELET COUNT (AUTO) 289 /CMM (150-450); RED BLOOD CELL COUNT(AUTO) 2.46 MIL/uL (4.0-5.2); WHITE BLOOD COUNT (AUTO) 11.1 K/uL (4.3-11.0)
[2019-04-17 08:01] VITALS: BP 115/55
[2019-04-17] MEDS: CLOTRIMAZOLE/BETAMETASONE DIPROPIONATE 15 GM TUBE TP SCH (09:00)
[2019-04-17] MEDS: HYDROGEN PEROXIDE 480 ML BOTTLE TP SCH ×2 (09:00→21:03)
[2019-04-17] MEDS: Z GUARD REMEDY 4 OZ OINT TP SCH ×3 (09:00→20:05)
[2019-04-17] MEDS: VITAMINS A AND D 56.7 GM TUBE TP SCH ×2 (09:00→20:05)
[2019-04-17] MEDS: CEFEPIME 1 GM in IV D5W 50 ML IV SCH ×2 (09:03→21:00)
[2019-04-17] MEDS: FERROUS SULFATE - FOR SA ONLY 330 MG/7.5 ML UDC GT SCH ×2 (09:17→17:23)
[2019-04-17] MEDS: DOCUSATE SODIUM LIQ 100 MG/10 ML UDC GT SCH (09:17)
[2019-04-17] MEDS: LEVETIRACETAM SOL (5 ML) 100 MG/ML UDC GT SCH ×2 (09:18→20:00)
[2019-04-17] MEDS: ACIDOPHILUS/BULGARICUS 1 EACH TAB.CHEW GT SCH ×2 (09:18→17:23)
[2019-04-17] MEDS: MULTIVIT W/MINERALS 1 TAB TABLET GT SCH (09:19)
[2019-04-17] MEDS: TRILEPTAL GT SCH ×2 (09:19→20:01)
[2019-04-17] MEDS: CALCIUM CARBONATE 500 MG TAB.CHEW GT SCH ×2 (09:19→17:25)
[2019-04-17] MEDS: SENNOSIDES 8.6 MG TABLET GT SCH ×2 (09:19→20:01)
[2019-04-17] MEDS: SIMETHICONE SUSP 40 MG/0.6 ML BOTTLE GT SCH ×2 (09:19→20:00)
[2019-04-17] MEDS: GLUCERNA 1.2 1,000 ML BOTTLE GT PRN (16:05)
[2019-04-17] MEDS: ASCORBIC ACID 500 MG TABLET GT SCH (20:02)
[2019-04-17 20:36] VITALS: BP 120/60
[2019-04-17] MEDS ORDERED: LINEZOLID 600 MG TABLET PO SCH (21:00)
[2019-04-17] MEDS: INSULIN GLARGINE, 100 UNIT/ML CARTRIDGE SQ SCH (21:24)
[2019-04-18] MEDS: ALBUTEROL FS 2.5 MG/3 ML VIAL.NEB NEB SCH ×4 (01:29→19:19)
[2019-04-18] MEDS: GABAPENTIN 250 MG/5 ML SOLUTION GT SCH ×3 (04:57→20:03)
[2019-04-18] MEDS: OMEPRAZOLE 20 MG CAPSULE.DR GT SCH (05:01)
[2019-04-18] MEDS: INSULIN REGULAR, HUMAN 100 UNIT/ML 3 ML VIAL SQ PRN ×3 (05:02→17:44)
[2019-04-18] MEDS: METOCLOPRAMIDE HCL 10 MG TABLET GT SCH ×3 (05:02→17:40)
[2019-04-18] MEDS: BLOOD SUGAR DIAGNOSTIC 1 EACH STRIP IN SCH ×3 (05:02→17:40)
--- NOTE | 2019-04-18 08:39 | NUR ---
RT NOTE: REC'D TRACH PT ON [facility] VENT ON NOTED SETTINGS PER MD ORDERS. TRACH IS PATENT AND SECURED. TRACH CARE DONE. TYPING POOL SUPERVISOR DONE. SX DONE PRN. VENT PLUGGED INTO RED OUTLET. ALARMS ON AND AUDIBLE. NEVA DELGADO @ BEDSIDE. NO RESP DISTRESS NOTED AT THIS TIME. WILL CONT TO MONITOR PT. Addendum: 04/18/19 at 0840 by MARCO FRANCOIS RT Amended: Links added.
[2019-04-18] MEDS: HYDROGEN PEROXIDE 480 ML BOTTLE TP SCH ×2 (09:00→21:00)
[2019-04-18] MEDS ORDERED: LINEZOLID 600 MG TABLET GT SCH (09:08)
[2019-04-18] MEDS: SIMETHICONE SUSP 40 MG/0.6 ML BOTTLE GT SCH ×2 (09:20→20:02)
[2019-04-18] MEDS: LINEZOLID 600 MG TABLET GT SCH ×2 (09:20→20:05)
[2019-04-18] MEDS: ACIDOPHILUS/BULGARICUS 1 EACH TAB.CHEW GT SCH ×2 (09:20→17:40)
[2019-04-18] MEDS: Z GUARD REMEDY 4 OZ OINT TP SCH ×2 (09:20→20:05)
[2019-04-18] MEDS: SENNOSIDES 8.6 MG TABLET GT SCH ×2 (09:20→20:03)
[2019-04-18] MEDS: CALCIUM CARBONATE 500 MG TAB.CHEW GT SCH ×2 (09:20→17:40)
[2019-04-18] MEDS: TRILEPTAL GT SCH ×2 (09:20→20:03)
[2019-04-18] MEDS: DOCUSATE SODIUM LIQ 100 MG/10 ML UDC GT SCH (09:20)
[2019-04-18] MEDS: MULTIVIT W/MINERALS 1 TAB TABLET GT SCH (09:20)
[2019-04-18] MEDS: FERROUS SULFATE - FOR SA ONLY 330 MG/7.5 ML UDC GT SCH ×2 (09:20→17:40)
[2019-04-18] MEDS: LEVETIRACETAM SOL (5 ML) 100 MG/ML UDC GT SCH ×2 (09:20→20:02)
[2019-04-18] MEDS: VITAMINS A AND D 56.7 GM TUBE TP SCH ×2 (09:21→20:05)
[2019-04-18] MEDS: CEFEPIME 1 GM in IV D5W 50 ML IV SCH ×2 (09:32→21:00)
[2019-04-18 11:17] VITALS: BP 117/62
--- NOTE | 2019-04-18 12:57 | NUR ---
Seen by Dr Luis. Pt's urine from nephrostomy is still blood-tinged. Urine from Bourgeois catheter is yellowish in color. Relayed culture of body fluid from left nephrostomy to Dr Luis. NAN Loredo already ordered Cefepime and Zyvox. 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 Dr Luis ordered CBC and BMP for tomorrow. Addendum: 04/18/19 at 1301 by SARITA GOMEZ RN Notified Beckie.
[2019-04-18] MEDS: GLUCERNA 1.2 1,000 ML BOTTLE GT PRN (15:22)
[2019-04-18 20:02] VITALS: BP 113/80
[2019-04-18] MEDS: ASCORBIC ACID 500 MG TABLET GT SCH (20:03)
[2019-04-18] MEDS: INSULIN GLARGINE, 100 UNIT/ML CARTRIDGE SQ SCH (21:30)
[2019-04-19] MEDS: METOCLOPRAMIDE HCL 10 MG TABLET GT SCH ×5 (00:27→23:48)
[2019-04-19] MEDS: BLOOD SUGAR DIAGNOSTIC 1 EACH STRIP IN SCH ×5 (00:27→23:48)
[2019-04-19] MEDS: INSULIN REGULAR, HUMAN 100 UNIT/ML 3 ML VIAL SQ PRN ×5 (00:28→23:49)
[2019-04-19] MEDS: ALBUTEROL FS 2.5 MG/3 ML VIAL.NEB NEB SCH ×4 (01:16→19:38)
[2019-04-19] MEDS: GLUCERNA 1.2 1,000 ML BOTTLE GT PRN (05:01)
[2019-04-19] MEDS: OMEPRAZOLE 20 MG CAPSULE.DR GT SCH (05:01)
[2019-04-19] MEDS: GABAPENTIN 250 MG/5 ML SOLUTION GT SCH ×3 (05:01→20:03)
[2019-04-19 07:16] LABS: BASOPHILS # (AUTO) 0.1 /CMM (0.0-0.2); BASOPHILS % (AUTO) 0.9 % (0.0-2.0); EOSINOPHILS % (AUTO) 7.4 % (0.0-6.0); HEMATOCRIT 24 % (33-45); HEMOGLOBIN 8.2 g/dL (11.5-14.8); LYMPHOCYTES # (AUTO) 3.4 /CMM (0.8-4.8); LYMPHOCYTES % (AUTO) 27.7 % (20.0-44.0); MEAN CORPUSCULAR HGB CONC 34 g/dl (31.0-36.0); MEAN CORPUSCULAR VOLUME 96 fL (82-100); MONOCYTES # (AUTO) 1.8 /CMM (0.1-1.30); MONOCYTES % (AUTO) 14.8 % (2.0-12.0); NEUTROPHILS % (AUTO) 49.2 % (43.0-81.0); PLATELET COUNT (AUTO) 309 /CMM (150-450); RED BLOOD CELL COUNT(AUTO) 2.47 MIL/uL (4.0-5.2); WHITE BLOOD COUNT (AUTO) 12.1 K/uL (4.3-11.0)
[2019-04-19 07:23] LABS: ALBUMIN 2.9 g/dL (3.4-5.0); BILIRUBIN,TOTAL 0.2 mg/dL (0.2-1.0); CALCIUM, SERUM 11.3 mg/dL (8.5-10.1); CREATININE 3.1 mg/dL (0.6-1.3); MAGNESIUM 2.6 mg/dL (1.8-2.4); PHOSPHORUS 4.3 mg/dL (2.5-4.9); POTASSIUM 3.4 mmol/L (3.5-5.1); TOTAL PROTEIN, SERUM 9.6 g/dL (6.4-8.2)
[2019-04-19 07:35] VITALS: BP 118/63
[2019-04-19] MEDS: LINEZOLID 600 MG TABLET GT SCH ×2 (08:37→20:06)
[2019-04-19] MEDS: MULTIVIT W/MINERALS 1 TAB TABLET GT SCH (08:37)
[2019-04-19] MEDS: CALCIUM CARBONATE 500 MG TAB.CHEW GT SCH ×2 (08:37→16:10)
[2019-04-19] MEDS: FERROUS SULFATE - FOR SA ONLY 330 MG/7.5 ML UDC GT SCH ×2 (08:37→16:10)
[2019-04-19] MEDS: ACIDOPHILUS/BULGARICUS 1 EACH TAB.CHEW GT SCH ×2 (08:37→16:10)
[2019-04-19] MEDS: TRILEPTAL GT SCH ×2 (08:37→20:04)
[2019-04-19] MEDS: LEVETIRACETAM SOL (5 ML) 100 MG/ML UDC GT SCH ×2 (08:37→20:03)
[2019-04-19] MEDS: SENNOSIDES 8.6 MG TABLET GT SCH ×2 (08:37→20:04)
[2019-04-19] MEDS: DOCUSATE SODIUM LIQ 100 MG/10 ML UDC GT SCH (08:37)
[2019-04-19] MEDS: SIMETHICONE SUSP 40 MG/0.6 ML BOTTLE GT SCH ×2 (08:37→20:03)
[2019-04-19] MEDS: VITAMINS A AND D 56.7 GM TUBE TP SCH ×2 (08:38→20:06)
[2019-04-19] MEDS: Z GUARD REMEDY 4 OZ OINT TP SCH ×2 (08:38→20:06)
--- NOTE | 2019-04-19 08:38 | NUR ---
RT NOTE RECEIVED PT MECHANICALLY VENTILATED VIA CUFFED TRACHEOSTOMY TUBE. CUFF INFLATED. TRACH TUBE MIDLINE AND SECURE. VENTILATOR SETTINGS PRESCRIBED. ALARMS SET PER PROTOCOL AND AUDIBLE. VENT PLUGGED IN TO RED OUTLET. AMBU BAG AND BACK UP TRACH AT BED SIDE. NO DISTRESS NOTED. Addendum: 04/19/19 at 0840 by MAXI BRADY RT Amended: Links added.
[2019-04-19] MEDS: HYDROGEN PEROXIDE 480 ML BOTTLE TP SCH ×2 (09:00→21:00)
[2019-04-19] MEDS: CEFEPIME 1 GM in IV D5W 50 ML IV SCH ×2 (09:00→21:00)
--- NOTE | 2019-04-19 09:00 | NUR ---
Seen by Dr Felix. Relayed lab results to him.
--- NOTE | 2019-04-19 11:35 | NUR ---
K 3.4. Dr Luis ordered to give Potassium Chloride 20 mEq GT x 1 for hypokalemia.
[2019-04-19] MEDS ORDERED: POTASSIUM CHLORIDE 20 MEQ POWDER PACKET GT ONE (12:30)
[2019-04-19] MEDS: ASCORBIC ACID 500 MG TABLET GT SCH (20:05)
[2019-04-19 20:11] VITALS: BP 131/75
[2019-04-19] MEDS: INSULIN GLARGINE, 100 UNIT/ML CARTRIDGE SQ SCH (21:35)
[2019-04-19] MEDS ORDERED: CEFEPIME 1 GM VIAL ONE (21:39)
[2019-04-20] MEDS: ALBUTEROL FS 2.5 MG/3 ML VIAL.NEB NEB SCH ×4 (01:22→20:21)
[2019-04-20] MEDS: GABAPENTIN 250 MG/5 ML SOLUTION GT SCH ×3 (04:58→20:00)
[2019-04-20] MEDS: BLOOD SUGAR DIAGNOSTIC 1 EACH STRIP IN SCH ×4 (05:00→23:53)
[2019-04-20] MEDS: OMEPRAZOLE 20 MG CAPSULE.DR GT SCH (05:00)
[2019-04-20] MEDS: INSULIN REGULAR, HUMAN 100 UNIT/ML 3 ML VIAL SQ PRN ×3 (05:00→23:54)
[2019-04-20] MEDS: METOCLOPRAMIDE HCL 10 MG TABLET GT SCH ×4 (05:00→23:53)
[2019-04-20] MEDS: HYDROGEN PEROXIDE 480 ML BOTTLE TP SCH ×2 (09:00→21:00)
[2019-04-20] MEDS: FERROUS SULFATE - FOR SA ONLY 330 MG/7.5 ML UDC GT SCH ×2 (09:50→17:30)
[2019-04-20] MEDS: DOCUSATE SODIUM LIQ 100 MG/10 ML UDC GT SCH (09:50)
[2019-04-20] MEDS: MULTIVIT W/MINERALS 1 TAB TABLET GT SCH (09:51)
[2019-04-20] MEDS: CALCIUM CARBONATE 500 MG TAB.CHEW GT SCH ×2 (09:51→17:30)
[2019-04-20] MEDS: LEVETIRACETAM SOL (5 ML) 100 MG/ML UDC GT SCH ×2 (09:51→20:00)
[2019-04-20] MEDS: SENNOSIDES 8.6 MG TABLET GT SCH ×2 (09:51→20:01)
[2019-04-20] MEDS: Z GUARD REMEDY 4 OZ OINT TP SCH ×2 (09:51→20:03)
[2019-04-20] MEDS: LINEZOLID 600 MG TABLET GT SCH ×2 (09:51→20:02)
[2019-04-20] MEDS: ACIDOPHILUS/BULGARICUS 1 EACH TAB.CHEW GT SCH ×2 (09:51→17:30)
[2019-04-20] MEDS: TRILEPTAL GT SCH ×2 (09:51→20:00)
[2019-04-20] MEDS: SIMETHICONE SUSP 40 MG/0.6 ML BOTTLE GT SCH ×2 (09:51→20:00)
[2019-04-20] MEDS: VITAMINS A AND D 56.7 GM TUBE TP SCH ×2 (09:51→20:03)
[2019-04-20] MEDS: CEFEPIME 1 GM in IV D5W 50 ML IV SCH ×2 (10:00→21:30)
--- NOTE | 2019-04-20 10:04 | NUR ---
RT NOTE: REC'D TRACH PT ON [facility] VENT ON NOTED SETTINGS PER MD ORDERS. TRACH IS PATENT AND SECURED. TRACH CARE DONE. SALES AND SERVICE AGENT DONE. SX DONE PRN. VENT PLUGGED INTO RED OUTLET. ALARMS ON AND AUDIBLE. NEVA DELGADO @ BEDSIDE. NO RESP DISTRESS NOTED AT THIS TIME. WILL CONT TO MONITOR PT. Addendum: 04/20/19 at 1004 by MARCO FRANCOIS RT Amended: Links added.
[2019-04-20 11:47] VITALS: BP 129/59
[2019-04-20 19:49] VITALS: BP 158/66
[2019-04-20] MEDS: ASCORBIC ACID 500 MG TABLET GT SCH (20:01)
[2019-04-20] MEDS: INSULIN GLARGINE, 100 UNIT/ML CARTRIDGE SQ SCH (21:48)
[2019-04-20] MEDS: GLUCERNA 1.2 1,000 ML BOTTLE GT PRN (23:42)
[2019-04-21] MEDS: ALBUTEROL FS 2.5 MG/3 ML VIAL.NEB NEB SCH ×4 (00:35→20:22)
[2019-04-21] MEDS: GABAPENTIN 250 MG/5 ML SOLUTION GT SCH ×3 (05:00→21:50)
[2019-04-21] MEDS: OMEPRAZOLE 20 MG CAPSULE.DR GT SCH (05:00)
[2019-04-21] MEDS: METOCLOPRAMIDE HCL 10 MG TABLET GT SCH ×4 (05:01→23:13)
[2019-04-21] MEDS: BLOOD SUGAR DIAGNOSTIC 1 EACH STRIP IN SCH ×4 (05:01→23:13)
[2019-04-21] MEDS: INSULIN REGULAR, HUMAN 100 UNIT/ML 3 ML VIAL SQ PRN ×4 (05:01→23:15)
[2019-04-21 08:08] VITALS: BP 116/51
[2019-04-21] MEDS: Z GUARD REMEDY 4 OZ OINT TP SCH ×2 (09:00→21:50)
[2019-04-21] MEDS: CEFEPIME 1 GM in IV D5W 50 ML IV SCH ×2 (09:00→21:15)
[2019-04-21] MEDS: VITAMINS A AND D 56.7 GM TUBE TP SCH ×2 (09:00→21:50)
[2019-04-21] MEDS: DOCUSATE SODIUM LIQ 100 MG/10 ML UDC GT SCH (09:28)
[2019-04-21] MEDS: SIMETHICONE SUSP 40 MG/0.6 ML BOTTLE GT SCH ×2 (09:28→21:50)
[2019-04-21] MEDS: SENNOSIDES 8.6 MG TABLET GT SCH ×2 (09:28→21:50)
[2019-04-21] MEDS: LEVETIRACETAM SOL (5 ML) 100 MG/ML UDC GT SCH ×2 (09:28→21:50)
[2019-04-21] MEDS: FERROUS SULFATE - FOR SA ONLY 330 MG/7.5 ML UDC GT SCH ×2 (09:28→17:53)
[2019-04-21] MEDS: ACIDOPHILUS/BULGARICUS 1 EACH TAB.CHEW GT SCH ×2 (09:28→17:53)
[2019-04-21] MEDS: CALCIUM CARBONATE 500 MG TAB.CHEW GT SCH ×2 (09:28→17:53)
[2019-04-21] MEDS: TRILEPTAL GT SCH ×2 (09:28→21:50)
[2019-04-21] MEDS: MULTIVIT W/MINERALS 1 TAB TABLET GT SCH (09:28)
[2019-04-21] MEDS: LINEZOLID 600 MG TABLET GT SCH ×2 (09:28→21:50)
[2019-04-21] MEDS: HYDROGEN PEROXIDE 480 ML BOTTLE TP SCH ×2 (09:38→20:22)
--- NOTE | 2019-04-21 17:39 | NUR ---
Clarified with NAN Loredo if body fluid culture from left kidney is considered urine culture. 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 NAN Loredo said contact isolation for ESBL urine can be DC'd, she will document.
[2019-04-21 20:17] VITALS: BP 120/78
[2019-04-21] MEDS: ASCORBIC ACID 500 MG TABLET GT SCH (21:50)
[2019-04-21] MEDS: GLUCERNA 1.2 1,000 ML BOTTLE GT PRN (21:52)
[2019-04-21] MEDS: INSULIN GLARGINE, 100 UNIT/ML CARTRIDGE SQ SCH (22:28)
[2019-04-22] MEDS: ALBUTEROL FS 2.5 MG/3 ML VIAL.NEB NEB SCH ×4 (00:59→19:33)
[2019-04-22] MEDS: INSULIN REGULAR, HUMAN 100 UNIT/ML 3 ML VIAL SQ PRN ×4 (05:44→23:39)
[2019-04-22] MEDS: METOCLOPRAMIDE HCL 10 MG TABLET GT SCH ×4 (05:44→23:39)
[2019-04-22] MEDS: OMEPRAZOLE 20 MG CAPSULE.DR GT SCH (05:44)
[2019-04-22] MEDS: BLOOD SUGAR DIAGNOSTIC 1 EACH STRIP IN SCH ×4 (05:44→23:39)
[2019-04-22] MEDS: GABAPENTIN 250 MG/5 ML SOLUTION GT SCH ×3 (05:44→20:09)
[2019-04-22 08:00] VITALS: BP 137/70
--- NOTE | 2019-04-22 08:00 | NUR ---
Referred patient's isolation to Infectious control nurse Didi, that recent urine culture shows VRE but not ESBL. She said that since recent urine culture shows VRE, it is OK to DC contact isolation for ESBL but will remain on isolation for VRE of urine.
--- NOTE | 2019-04-22 08:59 | NUR ---
RT NOTE RECEIVED PT MECHANICALLY VENTILATED VIA CUFFED TRACHEOSTOMY TUBE. CUFF INFLATED. TRACH TUBE MIDLINE AND SECURE. VENTILATOR SETTINGS PRESCRIBED. ALARMS SET PER PROTOCOL AND AUDIBLE. VENT PLUGGED IN TO RED OUTLET. AMBU BAG AND BACK UP TRACH AT BED SIDE. NO DISTRESS NOTED. Addendum: 04/22/19 at 0901 by MAXI BRADY RT Amended: Links added.
[2019-04-22] MEDS: HYDROGEN PEROXIDE 480 ML BOTTLE TP SCH ×2 (09:00→21:23)
[2019-04-22] MEDS: Z GUARD REMEDY 4 OZ OINT TP SCH ×2 (09:00→20:26)
[2019-04-22] MEDS: VITAMINS A AND D 56.7 GM TUBE TP SCH ×2 (09:00→20:26)
[2019-04-22] MEDS: TRILEPTAL GT SCH ×2 (09:22→20:10)
[2019-04-22] MEDS: CALCIUM CARBONATE 500 MG TAB.CHEW GT SCH ×2 (09:22→17:04)
[2019-04-22] MEDS: LEVETIRACETAM SOL (5 ML) 100 MG/ML UDC GT SCH ×2 (09:22→20:09)
[2019-04-22] MEDS: MULTIVIT W/MINERALS 1 TAB TABLET GT SCH (09:22)
[2019-04-22] MEDS: DOCUSATE SODIUM LIQ 100 MG/10 ML UDC GT SCH (09:22)
[2019-04-22] MEDS: ACIDOPHILUS/BULGARICUS 1 EACH TAB.CHEW GT SCH ×2 (09:22→17:04)
[2019-04-22] MEDS: SIMETHICONE SUSP 40 MG/0.6 ML BOTTLE GT SCH ×2 (09:22→20:09)
[2019-04-22] MEDS: FERROUS SULFATE - FOR SA ONLY 330 MG/7.5 ML UDC GT SCH ×2 (09:22→17:04)
[2019-04-22] MEDS: SENNOSIDES 8.6 MG TABLET GT SCH ×2 (09:22→20:10)
[2019-04-22] MEDS: LINEZOLID 600 MG TABLET GT SCH ×2 (09:22→20:10)
[2019-04-22] MEDS: CEFEPIME 1 GM in IV D5W 50 ML IV SCH ×2 (09:27→21:43)
[2019-04-22] MEDS: GLUCERNA 1.2 1,000 ML BOTTLE GT PRN (19:04)
[2019-04-22] MEDS: ASCORBIC ACID 500 MG TABLET GT SCH (20:10)
[2019-04-22 20:31] VITALS: BP 107/61
[2019-04-22] MEDS: INSULIN GLARGINE, 100 UNIT/ML CARTRIDGE SQ SCH (22:15)
[2019-04-23] MEDS: ALBUTEROL FS 2.5 MG/3 ML VIAL.NEB NEB SCH ×4 (01:33→19:25)
[2019-04-23] MEDS: GABAPENTIN 250 MG/5 ML SOLUTION GT SCH ×3 (05:29→20:47)
[2019-04-23] MEDS: METOCLOPRAMIDE HCL 10 MG TABLET GT SCH ×4 (05:29→23:34)
[2019-04-23] MEDS: OMEPRAZOLE 20 MG CAPSULE.DR GT SCH (05:29)
[2019-04-23] MEDS: INSULIN REGULAR, HUMAN 100 UNIT/ML 3 ML VIAL SQ PRN ×3 (05:36→23:35)
[2019-04-23] MEDS: BLOOD SUGAR DIAGNOSTIC 1 EACH STRIP IN SCH ×4 (05:36→23:34)
--- NOTE | 2019-04-23 06:39 | NUR ---
Patient nephrostomy output reddish in color (blood) draining well.No sign and symptoms of pain.Will continue to monitor and will endorse.
[2019-04-23] MEDS: LEVETIRACETAM SOL (5 ML) 100 MG/ML UDC GT SCH ×2 (08:03→20:47)
[2019-04-23] MEDS: DOCUSATE SODIUM LIQ 100 MG/10 ML UDC GT SCH (08:03)
[2019-04-23] MEDS: ACIDOPHILUS/BULGARICUS 1 EACH TAB.CHEW GT SCH ×2 (08:04→16:16)
[2019-04-23] MEDS: TRILEPTAL GT SCH ×2 (08:07→20:48)
[2019-04-23] MEDS: SIMETHICONE SUSP 40 MG/0.6 ML BOTTLE GT SCH ×2 (08:07→20:47)
[2019-04-23] MEDS: SENNOSIDES 8.6 MG TABLET GT SCH ×2 (08:09→20:48)
[2019-04-23] MEDS: CALCIUM CARBONATE 500 MG TAB.CHEW GT SCH ×2 (08:09→16:16)
[2019-04-23] MEDS: MULTIVIT W/MINERALS 1 TAB TABLET GT SCH (08:09)
[2019-04-23] MEDS: LINEZOLID 600 MG TABLET GT SCH ×2 (08:11→20:48)
[2019-04-23] MEDS: HYDROGEN PEROXIDE 480 ML BOTTLE TP SCH ×2 (08:11→21:46)
[2019-04-23] MEDS: VITAMINS A AND D 56.7 GM TUBE TP SCH ×2 (08:11→20:51)
[2019-04-23] MEDS: Z GUARD REMEDY 4 OZ OINT TP SCH ×2 (08:11→20:51)
[2019-04-23] MEDS: FERROUS SULFATE - FOR SA ONLY 330 MG/7.5 ML UDC GT SCH ×2 (08:12→16:15)
[2019-04-23] MEDS: CEFEPIME 1 GM in IV D5W 50 ML IV SCH ×2 (08:19→21:00)
[2019-04-23 10:27] VITALS: BP 103/53
--- NOTE | 2019-04-23 10:30 | NUR ---
Placed a call to Dr. Braga's to report nephrostomy tube still with hematuria, according to quick mixer operator, she will page MD. Awaiting for Dr. Braga to call back.
--- NOTE | 2019-04-23 14:07 | NUR ---
Placed a follow-up call to Dr. Braga to report that nephrostomy tube still with hematuria, according to answering service Dr. Lopez is alteration tailor for Dr. Braga. Awaiting for response.
--- NOTE | 2019-04-23 15:01 | NUR ---
Received a phone call from Dr. Braga and reported that patient's nephrostomy still with hematuria while patient's FC draining clear yellow urine. Also informed Dr. Braga that recent Creatinine on 04/19 is 3.1 which is higher than previous level. (2.9). According to Dr. Braga there is nothing to be concern at this time, patient has kidney stones. NNO given at this time.
--- NOTE | 2019-04-23 15:43 | NUR ---
RT NOTES TRACH TUBE IN PLACE, PATENT, AND SECURED WITH TRACH TIE. ALARMS ON AND AUDIBLE. VENT PLUGGED IN TO RED OUTLET. AMBU BAG AND BACK UP TRACH BY THE BEDSIDE. PT STABLE AT THIS TIME. WILL CONTINUE TO MONITOR. Addendum: 04/23/19 at 1544 by ADRIÁN THOMAS RT Amended: Links added.
--- NOTE | 2019-04-23 15:57 | NUR ---
Left a message to Beckie, regarding what Dr. Braga thinks of the hematuria from nephrostomy and discontinuation of ESBL of urine.
--- NOTE | 2019-04-23 19:25 | NUR ---
RECEIVED TRACH PT ON ME[facility] VENT WITH NOTED SETTINGS. PT IS AWAKE, NON VERBAL AND RESPONDS TO STIMULI WHEN SUCTIONED .TRACH IS PATENT AND SECURED. SPEEDER OPERATOR DONE. Q6 BREATHING TX GIVEN. NO ADVERSE REACTION NOTED. SX DONE PRN. VENT PLUGGED INTO RED OUTLET. ALARMS ON AND AUDIBLE. AMBU BAG @ BEDSIDE. NO RESP DISTRESS AT THIS TIME. WILL MONITOR T/O THE SHIFT.
[2019-04-23] MEDS: GLUCERNA 1.2 1,000 ML BOTTLE GT PRN (20:00)
[2019-04-23 20:28] VITALS: BP 108/65
[2019-04-23] MEDS: ASCORBIC ACID 500 MG TABLET GT SCH (20:48)
[2019-04-23] MEDS: INSULIN GLARGINE, 100 UNIT/ML CARTRIDGE SQ SCH (21:42)
[2019-04-24] MEDS: ALBUTEROL FS 2.5 MG/3 ML VIAL.NEB NEB SCH ×4 (00:58→19:54)
[2019-04-24] MEDS: OMEPRAZOLE 20 MG CAPSULE.DR GT SCH (05:25)
[2019-04-24] MEDS: GABAPENTIN 250 MG/5 ML SOLUTION GT SCH ×3 (05:25→20:01)
[2019-04-24] MEDS: METOCLOPRAMIDE HCL 10 MG TABLET GT SCH ×3 (05:25→17:36)
[2019-04-24] MEDS: BLOOD SUGAR DIAGNOSTIC 1 EACH STRIP IN SCH ×3 (05:35→17:37)
[2019-04-24] MEDS: INSULIN REGULAR, HUMAN 100 UNIT/ML 3 ML VIAL SQ PRN ×2 (05:36→12:01)
[2019-04-24 07:28] VITALS: BP 101/66
[2019-04-24] MEDS: CEFEPIME 1 GM in IV D5W 50 ML IV SCH ×2 (09:00→21:55)
[2019-04-24] MEDS: HYDROGEN PEROXIDE 480 ML BOTTLE TP SCH ×2 (09:00→19:54)
[2019-04-24] MEDS: Z GUARD REMEDY 4 OZ OINT TP SCH ×2 (09:40→20:05)
[2019-04-24] MEDS: LEVETIRACETAM SOL (5 ML) 100 MG/ML UDC GT SCH ×2 (09:40→20:01)
[2019-04-24] MEDS: FERROUS SULFATE - FOR SA ONLY 330 MG/7.5 ML UDC GT SCH ×2 (09:40→16:45)
[2019-04-24] MEDS: TRILEPTAL GT SCH ×2 (09:40→20:02)
[2019-04-24] MEDS: SIMETHICONE SUSP 40 MG/0.6 ML BOTTLE GT SCH ×2 (09:40→20:01)
[2019-04-24] MEDS: VITAMINS A AND D 56.7 GM TUBE TP SCH ×2 (09:40→20:05)
[2019-04-24] MEDS: DOCUSATE SODIUM LIQ 100 MG/10 ML UDC GT SCH (09:40)
[2019-04-24] MEDS: CALCIUM CARBONATE 500 MG TAB.CHEW GT SCH ×2 (09:40→16:45)
[2019-04-24] MEDS: LINEZOLID 600 MG TABLET GT SCH ×2 (09:40→20:05)
[2019-04-24] MEDS: SENNOSIDES 8.6 MG TABLET GT SCH ×2 (09:40→20:03)
[2019-04-24] MEDS: MULTIVIT W/MINERALS 1 TAB TABLET GT SCH (09:40)
[2019-04-24] MEDS: ACIDOPHILUS/BULGARICUS 1 EACH TAB.CHEW GT SCH ×2 (09:40→16:45)
--- NOTE | 2019-04-24 15:44 | NUR ---
RT NOTE RECEIVED PT MECHANICALLY VENTILATED VIA CUFFED TRACHEOSTOMY TUBE. CUFF INFLATED. TRACH TUBE MIDLINE AND SECURE. VENTILATOR SETTINGS PRESCRIBED. ALARMS SET PER PROTOCOL AND AUDIBLE. VENT PLUGGED IN TO RED OUTLET. AMBU BAG AND BACK UP TRACH AT BED SIDE. NO DISTRESS NOTED. Addendum: 04/24/19 at 1544 by MAXI BRADY RT Amended: Links added.
[2019-04-24] MEDS: GLUCERNA 1.2 1,000 ML BOTTLE GT PRN (15:50)
--- NOTE | 2019-04-24 17:50 | NUR ---
Seen and examined by Dr. Luis, seen bloody output from Nephrostomy tube he said he will talk to Dr. Braga about possible removal since it's not helping on her creatinine level. Afebrile. Will continue to monitor.
[2019-04-24] MEDS: MAGNESIUM HYDROXIDE 30 ML UDC GT PRN (18:35)
[2019-04-24] MEDS: ASCORBIC ACID 500 MG TABLET GT SCH (20:03)
[2019-04-24 20:44] VITALS: BP 107/70
[2019-04-24] MEDS: INSULIN GLARGINE, 100 UNIT/ML CARTRIDGE SQ SCH (21:28)
[2019-04-25] MEDS: METOCLOPRAMIDE HCL 10 MG TABLET GT SCH ×4 (00:37→17:22)
[2019-04-25] MEDS: BLOOD SUGAR DIAGNOSTIC 1 EACH STRIP IN SCH ×4 (00:37→17:22)
[2019-04-25] MEDS: INSULIN REGULAR, HUMAN 100 UNIT/ML 3 ML VIAL SQ PRN ×3 (00:38→11:55)
[2019-04-25] MEDS: ALBUTEROL FS 2.5 MG/3 ML VIAL.NEB NEB SCH ×4 (02:18→19:37)
--- NOTE | 2019-04-25 03:33 | NUR ---
[facility] RECEIVED ON TRACH TO VENT WITH SETTINGS OF AC 16, 550 VT, 30%, +5. SUCTIONED FOR MINIMAL, THIN, WHITE SECRETIONS. GIVEN IN-LINE TREATMENTS WITH NO ADVERSE REACTIONS. AMBU BAG AT BEDSIDE. VENT ALARM AUDIBLE AND VISIBLE. VENT PLUGGED INTO RED OUTLET. TRACH CARE DONE. Addendum: 04/25/19 at 0334 by SARA MOLINA RT Amended: Links added.
[2019-04-25] MEDS: OMEPRAZOLE 20 MG CAPSULE.DR GT SCH (05:14)
[2019-04-25] MEDS: GABAPENTIN 250 MG/5 ML SOLUTION GT SCH ×3 (05:14→20:04)
[2019-04-25 07:52] VITALS: BP 116/63
[2019-04-25] MEDS: HYDROGEN PEROXIDE 480 ML BOTTLE TP SCH ×2 (08:15→21:42)
[2019-04-25] MEDS: CEFEPIME 1 GM in IV D5W 50 ML IV SCH ×2 (09:00→21:00)
[2019-04-25] MEDS: ACIDOPHILUS/BULGARICUS 1 EACH TAB.CHEW GT SCH ×2 (09:13→16:39)
[2019-04-25] MEDS: Z GUARD REMEDY 4 OZ OINT TP SCH ×2 (09:13→20:04)
[2019-04-25] MEDS: DOCUSATE SODIUM LIQ 100 MG/10 ML UDC GT SCH (09:13)
[2019-04-25] MEDS: SENNOSIDES 8.6 MG TABLET GT SCH ×2 (09:13→20:04)
[2019-04-25] MEDS: TRILEPTAL GT SCH ×2 (09:13→20:04)
[2019-04-25] MEDS: LEVETIRACETAM SOL (5 ML) 100 MG/ML UDC GT SCH ×2 (09:13→20:03)
[2019-04-25] MEDS: LINEZOLID 600 MG TABLET GT SCH ×2 (09:13→20:04)
[2019-04-25] MEDS: CALCIUM CARBONATE 500 MG TAB.CHEW GT SCH ×2 (09:13→16:39)
[2019-04-25] MEDS: VITAMINS A AND D 56.7 GM TUBE TP SCH ×2 (09:13→20:04)
[2019-04-25] MEDS: MULTIVIT W/MINERALS 1 TAB TABLET GT SCH (09:13)
[2019-04-25] MEDS: FERROUS SULFATE - FOR SA ONLY 330 MG/7.5 ML UDC GT SCH ×2 (09:13→16:39)
[2019-04-25] MEDS: SIMETHICONE SUSP 40 MG/0.6 ML BOTTLE GT SCH ×2 (09:13→20:04)
--- NOTE | 2019-04-25 11:36 | NUR ---
STEPHEN contacted the pt.s responsible constitution party/ sister, Beckie Chu [phone] to invite them to the next IDT Plan of Care Conference taking place 04/29/19 from 12:30-1:30pm in the activities room. Per Beckie, she will be in attendance. Noted.
[2019-04-25] MEDS: GLUCERNA 1.2 1,000 ML BOTTLE GT PRN (11:55)
[2019-04-25 14:59] LABS: CALCIUM, SERUM 11.1 mg/dL (8.5-10.1); CREATININE 2.4 mg/dL (0.6-1.3); MAGNESIUM 2.5 mg/dL (1.8-2.4); PHOSPHORUS 4.4 mg/dL (2.5-4.9); POTASSIUM 3.7 mmol/L (3.5-5.1)
[2019-04-25 15:14] LABS: BASOPHILS # (AUTO) 0.1 /CMM (0.0-0.2); BASOPHILS % (AUTO) 0.5 % (0.0-2.0); EOSINOPHILS % (AUTO) 5.5 % (0.0-6.0); HEMATOCRIT 23 % (33-45); HEMOGLOBIN 7.5 g/dL (11.5-14.8); LYMPHOCYTES # (AUTO) 3.8 /CMM (0.8-4.8); LYMPHOCYTES % (AUTO) 23.1 % (20.0-44.0); MEAN CORPUSCULAR HGB CONC 33 g/dl (31.0-36.0); MEAN CORPUSCULAR VOLUME 101 fL (82-100); MONOCYTES # (AUTO) 1.4 /CMM (0.1-1.30); MONOCYTES % (AUTO) 8.8 % (2.0-12.0); NEUTROPHILS # (AUTO) 10.1 /CMM (1.8-8.9); NEUTROPHILS % (AUTO) 62.1 % (43.0-81.0); PLATELET COUNT (AUTO) 326 /CMM (150-450); RED BLOOD CELL COUNT(AUTO) 2.24 MIL/uL (4.0-5.2); WHITE BLOOD COUNT (AUTO) 16.3 K/uL (4.3-11.0)
--- NOTE | 2019-04-25 17:21 | NUR ---
Relayed lab results to Dr Luis.
--- NOTE | 2019-04-25 18:13 | NUR ---
Dr Luis said to have NAN Loredo follow-up on pt. WBC 16.3. Pt completed Cefepime today, still on Zyvox. NAN Loredo on vacation. Spoke with NAN Rojas . She said she will see pt later and will enter orders in the computer. Addendum: 04/25/19 at 1816 by SARITA GOMEZ RN Pt afebrile, T 98.4 F. Pt still having slightly blood-tinged urine from Bourgeois catheter and red colored urine from nephrostomy.
[2019-04-25] MEDS: ASCORBIC ACID 500 MG TABLET GT SCH (20:04)
[2019-04-25 20:22] VITALS: BP 137/77
[2019-04-25] MEDS: INSULIN GLARGINE, 100 UNIT/ML CARTRIDGE SQ SCH (21:18)
[2019-04-26] MEDS: METOCLOPRAMIDE HCL 10 MG TABLET GT SCH ×5 (00:22→23:42)
[2019-04-26] MEDS: BLOOD SUGAR DIAGNOSTIC 1 EACH STRIP IN SCH ×5 (00:23→23:42)
[2019-04-26] MEDS: INSULIN REGULAR, HUMAN 100 UNIT/ML 3 ML VIAL SQ PRN ×4 (00:30→23:42)
[2019-04-26] MEDS: ALBUTEROL FS 2.5 MG/3 ML VIAL.NEB NEB SCH ×4 (02:01→19:58)
[2019-04-26 04:19] LABS: APPEARANCE,URINE CLOUDY (CLEAR); BILIRUBIN,URINE NEGATIVE (NEGATIVE); BLOOD, URINE LARGE Ery/uL (NEGATIVE); COLOR,URINE YELLOW (YELLOW); KETONES,URINE NEGATIVE (NEGATIVE); LEUKOCYTE ESTERASE ,URINE LARGE (NEGATIVE); NITRITE, URINE NEGATIVE (NEGATIVE); PROTEIN,URINE 100 mg/dl (NEGATIVE); UGLUCOSE NEGATIVE (NEGATIVE); UROBILINOGEN,URINE 0.2 EU/dL (0.2)
[2019-04-26 04:28] LABS: BACTERIA,URINE Moderate /HPF (None Seen); RBC,URINE TOO NUMEROUS TO COUN /HPF (0-2); SQUAMOUS EPITHELIAL CELL,UR Many /HPF (None Seen); WBC,URINE 21-50 /HPF (0-3)
[2019-04-26] MEDS: GLUCERNA 1.2 1,000 ML BOTTLE GT PRN ×2 (04:47→23:43)
[2019-04-26] MEDS: OMEPRAZOLE 20 MG CAPSULE.DR GT SCH (05:01)
[2019-04-26] MEDS: GABAPENTIN 250 MG/5 ML SOLUTION GT SCH ×3 (05:01→20:07)
[2019-04-26 07:24] VITALS: BP 127/65
[2019-04-26] MEDS: HYDROGEN PEROXIDE 480 ML BOTTLE TP SCH ×2 (09:00→21:00)
[2019-04-26] MEDS: CEFEPIME 1 GM in IV D5W 50 ML IV SCH ×2 (09:10→21:00)
[2019-04-26] MEDS: SIMETHICONE SUSP 40 MG/0.6 ML BOTTLE GT SCH ×2 (09:39→20:06)
[2019-04-26] MEDS: LINEZOLID 600 MG TABLET GT SCH ×2 (09:39→20:08)
[2019-04-26] MEDS: FERROUS SULFATE - FOR SA ONLY 330 MG/7.5 ML UDC GT SCH ×2 (09:39→17:31)
[2019-04-26] MEDS: DOCUSATE SODIUM LIQ 100 MG/10 ML UDC GT SCH (09:39)
[2019-04-26] MEDS: MULTIVIT W/MINERALS 1 TAB TABLET GT SCH (09:39)
[2019-04-26] MEDS: VITAMINS A AND D 56.7 GM TUBE TP SCH ×2 (09:39→20:08)
[2019-04-26] MEDS: ACIDOPHILUS/BULGARICUS 1 EACH TAB.CHEW GT SCH ×2 (09:39→17:31)
[2019-04-26] MEDS: LEVETIRACETAM SOL (5 ML) 100 MG/ML UDC GT SCH ×2 (09:39→20:06)
[2019-04-26] MEDS: Z GUARD REMEDY 4 OZ OINT TP SCH ×2 (09:39→20:08)
[2019-04-26] MEDS: TRILEPTAL GT SCH ×2 (09:39→20:07)
[2019-04-26] MEDS: SENNOSIDES 8.6 MG TABLET GT SCH ×2 (09:39→20:07)
[2019-04-26] MEDS: CALCIUM CARBONATE 500 MG TAB.CHEW GT SCH ×2 (09:39→17:31)
--- NOTE | 2019-04-26 18:09 | NUR ---
RT NOTE PT REMAINS MECHANICALLY VENTILATED VIA CUFFED TRACHEOSTOMY TUBE. CUFF INFLATED. TRACH TUBE MIDLINE AND SECURE. VENTILATOR SETTINGS PRESCRIBED. ALARMS SET PER PROTOCOL AND AUDIBLE. VENT PLUGGED IN TO RED OUTLET. AMBU BAG AND BACK UP TRACH AT BED SIDE. NO DISTRESS NOTED. Addendum: 04/26/19 at 1809 by MAXI BRADY RT Amended: Links added.
--- NOTE | 2019-04-26 19:20 | NUR ---
Seen and examined by Anna Vargas NP. Informed her that patient's HL in the R foot is infiltrated and unable to get another line. Gave an order for midline insertion, nursing geothermal powerplant supervisor informed. Patient's sister Beckie made aware that midline was ordered due to infiltrated HL in the R foot which had to be removed. Appreciated the call. She also acknowledged that she received the message what urologist said about the hematuria in the nephrostomy tube. Endorsed.
[2019-04-26] MEDS: ASCORBIC ACID 500 MG TABLET GT SCH (20:07)
[2019-04-26 20:18] VITALS: BP 145/68
[2019-04-26] MEDS: INSULIN GLARGINE, 100 UNIT/ML CARTRIDGE SQ SCH (22:02)
--- NOTE | 2019-04-26 22:45 | NUR ---
RN NOTES Midline inserted to right upper arm, by picc line nurse.
[2019-04-27] MEDS: ALBUTEROL FS 2.5 MG/3 ML VIAL.NEB NEB SCH ×4 (01:00→19:17)
[2019-04-27] MEDS: METOCLOPRAMIDE HCL 10 MG TABLET GT SCH ×4 (05:02→23:25)
[2019-04-27] MEDS: GABAPENTIN 250 MG/5 ML SOLUTION GT SCH ×3 (05:02→20:18)
[2019-04-27] MEDS: OMEPRAZOLE 20 MG CAPSULE.DR GT SCH (05:02)
[2019-04-27] MEDS: INSULIN REGULAR, HUMAN 100 UNIT/ML 3 ML VIAL SQ PRN ×4 (06:05→23:26)
[2019-04-27] MEDS: BLOOD SUGAR DIAGNOSTIC 1 EACH STRIP IN SCH ×4 (06:05→23:25)
[2019-04-27 07:42] VITALS: BP 118/69
[2019-04-27] MEDS: HYDROGEN PEROXIDE 480 ML BOTTLE TP SCH ×2 (09:19→20:06)
[2019-04-27] MEDS: CEFEPIME 1 GM in IV D5W 50 ML IV SCH ×2 (09:35→20:53)
[2019-04-27] MEDS: TRILEPTAL GT SCH ×2 (09:53→20:18)
[2019-04-27] MEDS: LEVETIRACETAM SOL (5 ML) 100 MG/ML UDC GT SCH ×2 (09:53→20:18)
[2019-04-27] MEDS: FERROUS SULFATE - FOR SA ONLY 330 MG/7.5 ML UDC GT SCH ×2 (09:53→17:34)
[2019-04-27] MEDS: MULTIVIT W/MINERALS 1 TAB TABLET GT SCH (09:53)
[2019-04-27] MEDS: CALCIUM CARBONATE 500 MG TAB.CHEW GT SCH ×2 (09:53→17:34)
[2019-04-27] MEDS: SIMETHICONE SUSP 40 MG/0.6 ML BOTTLE GT SCH ×2 (09:53→20:18)
[2019-04-27] MEDS: Z GUARD REMEDY 4 OZ OINT TP SCH ×2 (09:53→20:18)
[2019-04-27] MEDS: VITAMINS A AND D 56.7 GM TUBE TP SCH ×2 (09:53→20:19)
[2019-04-27] MEDS: SENNOSIDES 8.6 MG TABLET GT SCH ×2 (09:53→20:18)
[2019-04-27] MEDS: LINEZOLID 600 MG TABLET GT SCH ×2 (09:53→20:18)
[2019-04-27] MEDS: ACIDOPHILUS/BULGARICUS 1 EACH TAB.CHEW GT SCH ×2 (09:53→17:34)
[2019-04-27] MEDS: DOCUSATE SODIUM LIQ 100 MG/10 ML UDC GT SCH (09:53)
[2019-04-27] MEDS: GLUCERNA 1.2 1,000 ML BOTTLE GT PRN (17:35)
[2019-04-27 19:57] VITALS: BP 115/71
--- NOTE | 2019-04-27 20:12 | NUR ---
PT RCVD TRACH'D ON MECHANICAL VENT WITH CHARTED SETTINGS. PT APRIL TX WELL. SX DONE. PT TRACH IS PATENT AND SECURE. VENT ALARMS APPEAR TO BE FUNCTIONING PROPERLY. VENT PLUGGED INTO RED OUTLET. AMBU BAG AT BEDSIDE. NO SOB NOTED. Addendum: 04/27/19 at 2014 by MICH AVILA RT Amended: Links added.
[2019-04-27] MEDS: ASCORBIC ACID 500 MG TABLET GT SCH (20:18)
[2019-04-27] MEDS: INSULIN GLARGINE, 100 UNIT/ML CARTRIDGE SQ SCH (21:45)
[2019-04-28] MEDS: ALBUTEROL FS 2.5 MG/3 ML VIAL.NEB NEB SCH ×4 (00:31→19:39)
[2019-04-28] MEDS: GABAPENTIN 250 MG/5 ML SOLUTION GT SCH ×3 (05:04→20:52)
[2019-04-28] MEDS: METOCLOPRAMIDE HCL 10 MG TABLET GT SCH ×4 (05:06→23:28)
[2019-04-28] MEDS: OMEPRAZOLE 20 MG CAPSULE.DR GT SCH (05:06)
[2019-04-28] MEDS: BLOOD SUGAR DIAGNOSTIC 1 EACH STRIP IN SCH ×3 (05:48→18:32)
[2019-04-28] MEDS: INSULIN REGULAR, HUMAN 100 UNIT/ML 3 ML VIAL SQ PRN ×2 (05:50→13:05)
[2019-04-28 07:51] VITALS: BP 122/79
--- NOTE | 2019-04-28 08:18 | NUR ---
RT NOTE: REC'D TRACH PT ON [facility] VENT ON NOTED SETTINGS PER MD ORDERS. TRACH IS PATENT AND SECURED. TRACH CARE DONE. FUEL SYSTEM MAINTENANCE SUPERVISOR DONE. SX DONE PRN. VENT PLUGGED INTO RED OUTLET. ALARMS ON AND AUDIBLE. NEVA DELGADO @ BEDSIDE. NO RESP DISTRESS NOTED AT THIS TIME. WILL CONT TO MONITOR PT. Addendum: 04/28/19 at 0819 by MARCO FRANCOIS RT Amended: Links added.
[2019-04-28] MEDS: VITAMINS A AND D 56.7 GM TUBE TP SCH ×2 (09:00→20:53)
[2019-04-28] MEDS: Z GUARD REMEDY 4 OZ OINT TP SCH ×2 (09:00→20:53)
[2019-04-28] MEDS: LEVETIRACETAM SOL (5 ML) 100 MG/ML UDC GT SCH ×2 (09:00→20:52)
[2019-04-28] MEDS: TRILEPTAL GT SCH ×2 (09:00→20:53)
[2019-04-28] MEDS: FERROUS SULFATE - FOR SA ONLY 330 MG/7.5 ML UDC GT SCH (09:00)
[2019-04-28] MEDS: SIMETHICONE SUSP 40 MG/0.6 ML BOTTLE GT SCH ×2 (09:00→20:52)
[2019-04-28] MEDS: MULTIVIT W/MINERALS 1 TAB TABLET GT SCH (09:00)
[2019-04-28] MEDS: DOCUSATE SODIUM LIQ 100 MG/10 ML UDC GT SCH (09:00)
[2019-04-28] MEDS ORDERED: FERROUS SULFATE UDC 300 MG/5 ML UDC GT SCH (09:00)
[2019-04-28] MEDS: ACIDOPHILUS/BULGARICUS 1 EACH TAB.CHEW GT SCH ×2 (09:00→17:54)
[2019-04-28] MEDS: SENNOSIDES 8.6 MG TABLET GT SCH ×2 (09:00→20:53)
[2019-04-28] MEDS: CALCIUM CARBONATE 500 MG TAB.CHEW GT SCH ×2 (09:00→17:54)
[2019-04-28] MEDS: HYDROGEN PEROXIDE 480 ML BOTTLE TP SCH ×2 (09:00→20:33)
[2019-04-28] MEDS: CEFEPIME 1 GM in IV D5W 50 ML IV SCH (09:46)
--- NOTE | 2019-04-28 13:00 | NUR ---
Urine culture showed 40,000 cfu/mL E coli ESBL, resistant to Cefepime, sensitive to Amikacin and Meropenem. Relayed result to EMPLOYMENT CONSULTANT Crystal Robles. She did not want to order Amikacin due to pt's kidney function. She is aware pt has seizures so she ordered Merrem 1 gm IV q 12 hours for 3 days only. Placed pt on contact isolation for ESBL urine. Notified Beckie. Addendum: 04/28/19 at 1357 by SARITA GOMEZ RN Informed infection control nurse Didi.
[2019-04-28] MEDS ORDERED: MEROPENEM 1 G in IV NS 0.9% 100 ML IV SCH (13:30)
--- NOTE | 2019-04-28 14:19 | NUR ---
Informed infection control nurse Didi that urine culture did not show VRE. VRE was present in body fluid/urine from nephrostomy. Didi said pt should be on both contact isolation for both VRE and ESBL urine.
[2019-04-28] MEDS: MEROPENEM 1 G in IV NS 0.9% 100 ML IV SCH (15:00)
[2019-04-28] MEDS: FERROUS SULFATE UDC 300 MG/5 ML UDC GT SCH (17:54)
[2019-04-28] MEDS: GLUCERNA 1.2 1,000 ML BOTTLE GT PRN (18:33)
--- NOTE | 2019-04-28 19:40 | NUR ---
RECEIVED TRACH PT ON ME[facility] VENT WITH NOTED SETTINGS PER MD ORDERS. PT IS AWAKE, ALERT ,RESPONDS TO STIMULI WHEN SUCTIONED AND NON VERBAL.TRACH IS PATENT AND SECURED. VICE SQUAD POLICE OFFICER DONE. Q6 BREATHING TX GIVEN. NO ADVERSE REACTION NOTED. SX DONE PRN. VENT PLUGGED INTO RED OUTLET. ALARMS ON AND AUDIBLE. AMBU BAG @ BEDSIDE. NO RESP DISTRESS AT THIS TIME. WILL CONT TO MONITOR T/O SHIFT.
[2019-04-28 19:44] VITALS: BP 103/65
[2019-04-28] MEDS: POVIDONE-IODINE OINT 28.4 GM TUBE TP SCH (20:53)
[2019-04-28] MEDS: ASCORBIC ACID 500 MG TABLET GT SCH (20:53)
[2019-04-28] MEDS: INSULIN GLARGINE, 100 UNIT/ML CARTRIDGE SQ SCH (21:24)
[2019-04-29] MEDS: INSULIN REGULAR, HUMAN 100 UNIT/ML 3 ML VIAL SQ PRN ×3 (00:10→23:28)
[2019-04-29] MEDS: BLOOD SUGAR DIAGNOSTIC 1 EACH STRIP IN SCH ×6 (00:10→23:27)
[2019-04-29] MEDS: ALBUTEROL FS 2.5 MG/3 ML VIAL.NEB NEB SCH ×4 (01:07→18:54)
[2019-04-29] MEDS: MEROPENEM 1 G in IV NS 0.9% 100 ML IV SCH ×2 (03:00→15:00)
[2019-04-29] MEDS: OMEPRAZOLE 20 MG CAPSULE.DR GT SCH (05:00)
[2019-04-29] MEDS: METOCLOPRAMIDE HCL 10 MG TABLET GT SCH ×4 (05:00→23:27)
[2019-04-29] MEDS: GABAPENTIN 250 MG/5 ML SOLUTION GT SCH ×3 (05:00→20:56)
[2019-04-29] MEDS: HYDROGEN PEROXIDE 480 ML BOTTLE TP SCH ×2 (07:13→20:40)
[2019-04-29 07:53] VITALS: BP 108/63
[2019-04-29] MEDS: DOCUSATE SODIUM LIQ 100 MG/10 ML UDC GT SCH (09:44)
[2019-04-29] MEDS: VITAMINS A AND D 56.7 GM TUBE TP SCH ×2 (09:44→20:56)
[2019-04-29] MEDS: SIMETHICONE SUSP 40 MG/0.6 ML BOTTLE GT SCH ×2 (09:44→20:56)
[2019-04-29] MEDS: TRILEPTAL GT SCH ×2 (09:44→20:56)
[2019-04-29] MEDS: LEVETIRACETAM SOL (5 ML) 100 MG/ML UDC GT SCH ×2 (09:44→20:56)
[2019-04-29] MEDS: SENNOSIDES 8.6 MG TABLET GT SCH ×2 (09:44→20:56)
[2019-04-29] MEDS: ACIDOPHILUS/BULGARICUS 1 EACH TAB.CHEW GT SCH ×2 (09:44→17:34)
[2019-04-29] MEDS: FERROUS SULFATE UDC 300 MG/5 ML UDC GT SCH ×2 (09:44→17:34)
[2019-04-29] MEDS: CALCIUM CARBONATE 500 MG TAB.CHEW GT SCH ×2 (09:44→17:34)
[2019-04-29] MEDS: MULTIVIT W/MINERALS 1 TAB TABLET GT SCH (09:44)
[2019-04-29] MEDS: Z GUARD REMEDY 4 OZ OINT TP SCH ×2 (09:44→20:56)
[2019-04-29] MEDS: GLUCERNA 1.2 1,000 ML BOTTLE GT PRN (14:50)
--- NOTE | 2019-04-29 15:09 | NUR ---
RT NOTE: RECEIVED PT ON ORDERED NOTED AC VENT SETTINGS. NO RESPIRATORY DISTRESS NOTED. TRACH CHECKED SECURE AND PATENT. SXD AND LAVAGED Q ROUND AND NEEDED. TXS GIVEN ORDERED WITH NO ADVERSE REACTIONS NOTED. TRACH CARE DONE. SPARE TRACH AND AMBU BAG @ BEDSIDE. ALARMS CHECKED. VENT PLUGGED INTO RED OUTLET.
--- NOTE | 2019-04-29 15:22 | NUR ---
INTERDISCIPLINARY PLAN OF CARE CONFERENCE took place today. The patients responsible libertarian/ Beckie Chu [phone] was not able to attend or participate via phone conference. Charge nurse discussed Urology eval by Ke Braga MD required for Nephrostomy tube. Dr. Felix and Interdisciplinary team discussed the plan of care in detail. Current orders as well as treatments and medications were reviewed. Please see other disciplines IDT notes for further details.
--- NOTE | 2019-04-29 18:55 | NUR ---
RT PT RECEIVED TRACHED ON MECHANICAL VENT ON CURRENT SETTINGS. PT TOLERATED TREATMENT WELL. SUCTION PERFORMED. PT IN NO DISTRESS. TRACH IS PATENT AND SECURE. VENT ALARMS ON AND AUDIBLE. AMBU BAG AT HEAD OF BED. VENT PLUGGED IN TO RED OUTLET. WILL CONTINUE TO MONITOR. Addendum: 04/29/19 at 2054 by BELKIS BETHEA RT Amended: Links added.
[2019-04-29 19:57] VITALS: BP 135/60
[2019-04-29] MEDS: ASCORBIC ACID 500 MG TABLET GT SCH (20:56)
[2019-04-29] MEDS: INSULIN GLARGINE, 100 UNIT/ML CARTRIDGE SQ SCH (22:15)
[2019-04-30] MEDS: ALBUTEROL FS 2.5 MG/3 ML VIAL.NEB NEB SCH ×4 (01:07→19:10)
[2019-04-30] MEDS: MEROPENEM 1 G in IV NS 0.9% 100 ML IV SCH ×2 (03:02→15:05)
[2019-04-30] MEDS: BLOOD SUGAR DIAGNOSTIC 1 EACH STRIP IN SCH ×4 (05:40→23:36)
[2019-04-30] MEDS: GABAPENTIN 250 MG/5 ML SOLUTION GT SCH ×3 (05:40→20:52)
[2019-04-30] MEDS: OMEPRAZOLE 20 MG CAPSULE.DR GT SCH (05:40)
[2019-04-30] MEDS: INSULIN REGULAR, HUMAN 100 UNIT/ML 3 ML VIAL SQ PRN ×2 (05:40→23:37)
[2019-04-30] MEDS: METOCLOPRAMIDE HCL 10 MG TABLET GT SCH ×4 (05:40→23:36)
--- NOTE | 2019-04-30 06:52 | NUR ---
Patient nephrostomy output reddish in color @ 200ml.Afebrile ,no distress noted.Will continue to monitor.
[2019-04-30 08:09] VITALS: BP 125/69
[2019-04-30] MEDS: HYDROGEN PEROXIDE 480 ML BOTTLE TP SCH ×2 (08:17→19:11)
[2019-04-30] MEDS: CALCIUM CARBONATE 500 MG TAB.CHEW GT SCH ×2 (09:57→17:54)
[2019-04-30] MEDS: SIMETHICONE SUSP 40 MG/0.6 ML BOTTLE GT SCH ×2 (09:57→20:52)
[2019-04-30] MEDS: FERROUS SULFATE UDC 300 MG/5 ML UDC GT SCH ×2 (09:57→17:54)
[2019-04-30] MEDS: SENNOSIDES 8.6 MG TABLET GT SCH ×2 (09:57→20:52)
[2019-04-30] MEDS: MULTIVIT W/MINERALS 1 TAB TABLET GT SCH (09:57)
[2019-04-30] MEDS: LEVETIRACETAM SOL (5 ML) 100 MG/ML UDC GT SCH ×2 (09:57→20:52)
[2019-04-30] MEDS: DOCUSATE SODIUM LIQ 100 MG/10 ML UDC GT SCH (09:57)
[2019-04-30] MEDS: ACIDOPHILUS/BULGARICUS 1 EACH TAB.CHEW GT SCH ×2 (09:57→17:54)
[2019-04-30] MEDS: TRILEPTAL GT SCH ×2 (09:57→20:52)
[2019-04-30] MEDS: VITAMINS A AND D 56.7 GM TUBE TP SCH ×2 (09:58→20:52)
[2019-04-30] MEDS: Z GUARD REMEDY 4 OZ OINT TP SCH ×2 (09:58→20:52)
[2019-04-30] MEDS: GLUCERNA 1.2 1,000 ML BOTTLE GT PRN (11:48)
[2019-04-30] MEDS: ASCORBIC ACID 500 MG TABLET GT SCH (20:52)
[2019-04-30 21:03] VITALS: BP 135/75
[2019-04-30] MEDS: INSULIN GLARGINE, 100 UNIT/ML CARTRIDGE SQ SCH (21:15)
[2019-05-01] MEDS: ALBUTEROL FS 2.5 MG/3 ML VIAL.NEB NEB SCH ×4 (00:53→19:37)
[2019-05-01] MEDS: MEROPENEM 1 G in IV NS 0.9% 100 ML IV SCH ×2 (03:00→14:21)
[2019-05-01] MEDS: METOCLOPRAMIDE HCL 10 MG TABLET GT SCH ×3 (05:26→17:22)
[2019-05-01] MEDS: BLOOD SUGAR DIAGNOSTIC 1 EACH STRIP IN SCH ×3 (05:26→17:22)
[2019-05-01] MEDS: INSULIN REGULAR, HUMAN 100 UNIT/ML 3 ML VIAL SQ PRN ×2 (05:26→17:23)
[2019-05-01] MEDS: GLUCERNA 1.2 1,000 ML BOTTLE GT PRN (05:26)
[2019-05-01] MEDS: OMEPRAZOLE 20 MG CAPSULE.DR GT SCH (05:26)
[2019-05-01] MEDS: GABAPENTIN 250 MG/5 ML SOLUTION GT SCH ×3 (05:26→21:37)
[2019-05-01 07:53] VITALS: BP 129/71
[2019-05-01] MEDS: HYDROGEN PEROXIDE 480 ML BOTTLE TP SCH ×2 (07:59→21:31)
[2019-05-01] MEDS: FERROUS SULFATE UDC 300 MG/5 ML UDC GT SCH ×2 (09:18→16:33)
[2019-05-01] MEDS: MULTIVIT W/MINERALS 1 TAB TABLET GT SCH (09:18)
[2019-05-01] MEDS: CALCIUM CARBONATE 500 MG TAB.CHEW GT SCH ×2 (09:18→16:33)
[2019-05-01] MEDS: SIMETHICONE SUSP 40 MG/0.6 ML BOTTLE GT SCH ×2 (09:18→21:37)
[2019-05-01] MEDS: TRILEPTAL GT SCH ×2 (09:18→21:37)
[2019-05-01] MEDS: VITAMINS A AND D 56.7 GM TUBE TP SCH ×2 (09:18→21:37)
[2019-05-01] MEDS: Z GUARD REMEDY 4 OZ OINT TP SCH ×2 (09:18→21:37)
[2019-05-01] MEDS: LEVETIRACETAM SOL (5 ML) 100 MG/ML UDC GT SCH ×2 (09:18→21:37)
[2019-05-01] MEDS: SENNOSIDES 8.6 MG TABLET GT SCH ×2 (09:18→21:37)
[2019-05-01] MEDS: ACIDOPHILUS/BULGARICUS 1 EACH TAB.CHEW GT SCH ×2 (09:18→16:33)
[2019-05-01] MEDS: DOCUSATE SODIUM LIQ 100 MG/10 ML UDC GT SCH (09:18)
--- NOTE | 2019-05-01 14:57 | NUR ---
RT Pt received trach'd and on [facility] vent w charted settings. Vent is plugged into the red outlet. Alarms are set and audible. Bmv at [facility]. Pt is stable. No respiratory distress or sob noted t/o shift. Will continue to monitor. Addendum: 05/01/19 at 1551 by JULIETH REY RT Amended: Links added.
--- NOTE | 2019-05-01 16:30 | NUR ---
Seen and examined by Dr. Luis no new orders.
--- NOTE | 2019-05-01 19:37 | NUR ---
RECEIVED TRACH PT ON MECH VENT WITH NOTED SETTINGS PER MD ORDERS. PT IS AWAKE, ALERT ,RESPONDS TO STIMULI WHEN SUCTIONED AND NON VERBAL.TRACH IS PATENT AND SECURED. PAPER MAKING MACHINE OPERATOR DONE. Q6 BREATHING TX GIVEN. NO ADVERSE REACTION NOTED. SX DONE PRN. VENT PLUGGED INTO RED OUTLET. ALARMS ON AND AUDIBLE. AMBU BAG @ BEDSIDE. NO RESP DISTRESS AT THIS TIME. WILL CONT TO MONITOR T/O SHIFT.
[2019-05-01 19:45] VITALS: BP 133/70
[2019-05-01] MEDS: POVIDONE-IODINE OINT 28.4 GM TUBE TP SCH (21:37)
[2019-05-01] MEDS: ASCORBIC ACID 500 MG TABLET GT SCH (21:37)
[2019-05-01] MEDS: INSULIN GLARGINE, 100 UNIT/ML CARTRIDGE SQ SCH (21:38)
[2019-05-02] MEDS: METOCLOPRAMIDE HCL 10 MG TABLET GT SCH ×4 (00:22→17:41)
[2019-05-02] MEDS: BLOOD SUGAR DIAGNOSTIC 1 EACH STRIP IN SCH ×4 (00:23→17:41)
[2019-05-02] MEDS: INSULIN REGULAR, HUMAN 100 UNIT/ML 3 ML VIAL SQ PRN ×2 (00:24→05:55)
[2019-05-02] MEDS: ALBUTEROL FS 2.5 MG/3 ML VIAL.NEB NEB SCH ×4 (01:25→19:33)
[2019-05-02] MEDS: GLUCERNA 1.2 1,000 ML BOTTLE GT PRN ×2 (05:00→17:42)
[2019-05-02] MEDS: GABAPENTIN 250 MG/5 ML SOLUTION GT SCH ×3 (05:17→21:46)
[2019-05-02] MEDS: OMEPRAZOLE 20 MG CAPSULE.DR GT SCH (05:17)
[2019-05-02 07:38] VITALS: BP 113/62
--- NOTE | 2019-05-02 09:02 | NUR ---
RT NOTE: REC'D TRACH PT ON [facility] VENT ON NOTED SETTINGS PER MD ORDERS. TRACH IS PATENT AND SECURED. TRACH CARE DONE. TABLET MACHINE OPERATOR DONE. SX DONE PRN. VENT PLUGGED INTO RED OUTLET. ALARMS ON AND AUDIBLE. NEVA DELGADO @ BEDSIDE. NO RESP DISTRESS NOTED AT THIS TIME. WILL CONT TO MONITOR PT. Addendum: 05/02/19 at 0902 by MARCO FRANCOIS RT Amended: Links added.
[2019-05-02] MEDS: HYDROGEN PEROXIDE 480 ML BOTTLE TP SCH ×2 (09:13→20:22)
[2019-05-02] MEDS: ACIDOPHILUS/BULGARICUS 1 EACH TAB.CHEW GT SCH ×2 (09:41→17:41)
[2019-05-02] MEDS: TRILEPTAL GT SCH ×2 (09:41→21:46)
[2019-05-02] MEDS: SENNOSIDES 8.6 MG TABLET GT SCH ×2 (09:41→21:46)
[2019-05-02] MEDS: Z GUARD REMEDY 4 OZ OINT TP SCH ×2 (09:41→21:46)
[2019-05-02] MEDS: MULTIVIT W/MINERALS 1 TAB TABLET GT SCH (09:41)
[2019-05-02] MEDS: LEVETIRACETAM SOL (5 ML) 100 MG/ML UDC GT SCH ×2 (09:41→21:46)
[2019-05-02] MEDS: CALCIUM CARBONATE 500 MG TAB.CHEW GT SCH ×2 (09:41→17:41)
[2019-05-02] MEDS: SIMETHICONE SUSP 40 MG/0.6 ML BOTTLE GT SCH ×2 (09:41→21:46)
[2019-05-02] MEDS: VITAMINS A AND D 56.7 GM TUBE TP SCH ×2 (09:41→21:46)
[2019-05-02] MEDS: DOCUSATE SODIUM LIQ 100 MG/10 ML UDC GT SCH (09:41)
[2019-05-02] MEDS: FERROUS SULFATE UDC 300 MG/5 ML UDC GT SCH ×2 (09:41→17:41)
[2019-05-02 11:42] LABS: BASOPHILS # (AUTO) 0.1 /CMM (0.0-0.2); BASOPHILS % (AUTO) 0.7 % (0.0-2.0); EOSINOPHILS % (AUTO) 5.5 % (0.0-6.0); HEMATOCRIT 22 % (33-45); HEMOGLOBIN 7.5 g/dL (11.5-14.8); LYMPHOCYTES # (AUTO) 2.8 /CMM (0.8-4.8); LYMPHOCYTES % (AUTO) 24.3 % (20.0-44.0); MEAN CORPUSCULAR HGB CONC 35 g/dl (31.0-36.0); MEAN CORPUSCULAR VOLUME 99 fL (82-100); MONOCYTES % (AUTO) 8.8 % (2.0-12.0); NEUTROPHILS # (AUTO) 6.9 /CMM (1.8-8.9); NEUTROPHILS % (AUTO) 60.7 % (43.0-81.0); PLATELET COUNT (AUTO) 347 /CMM (150-450); RED BLOOD CELL COUNT(AUTO) 2.19 MIL/uL (4.0-5.2); WHITE BLOOD COUNT (AUTO) 11.4 K/uL (4.3-11.0)
[2019-05-02 11:54] LABS: CALCIUM, SERUM 9.9 mg/dL (8.5-10.1); CREATININE 1.6 mg/dL (0.6-1.3); MAGNESIUM 2.2 mg/dL (1.8-2.4); PHOSPHORUS 4.5 mg/dL (2.5-4.9); POTASSIUM 3.7 mmol/L (3.5-5.1)
--- NOTE | 2019-05-02 16:00 | NUR ---
Contacted Dr. Braga referred about nephrostomy output still bloody he said it's okay nothing to worry. No new order given.
[2019-05-02 20:08] VITALS: BP 126/67
[2019-05-02] MEDS: ASCORBIC ACID 500 MG TABLET GT SCH (21:46)
[2019-05-02] MEDS: INSULIN GLARGINE, 100 UNIT/ML CARTRIDGE SQ SCH (21:47)
--- NOTE | 2019-05-02 23:27 | NUR ---
PT RCVD TRACH'D ON MECHANICAL VENT WITH CHARTED SETTINGS. PT APRIL TX WELL. SX DONE. PT TRACH IS PATENT AND SECURE. VENT ALARMS APPEAR TO BE FUNCTIONING PROPERLY. AMBU BAG AT BEDSIDE. VENT PLUGGED INTO RED OUTLET. NO SOB NOTED. Addendum: 05/02/19 at 4379 by MICH AVILA RT Amended: Links added.
[2019-05-03] MEDS: METOCLOPRAMIDE HCL 10 MG TABLET GT SCH ×5 (00:19→23:57)
[2019-05-03] MEDS: BLOOD SUGAR DIAGNOSTIC 1 EACH STRIP IN SCH ×5 (00:19→23:57)
[2019-05-03] MEDS: ALBUTEROL FS 2.5 MG/3 ML VIAL.NEB NEB SCH ×4 (01:08→19:30)
[2019-05-03] MEDS: GABAPENTIN 250 MG/5 ML SOLUTION GT SCH ×3 (05:38→20:59)
[2019-05-03] MEDS: OMEPRAZOLE 20 MG CAPSULE.DR GT SCH (05:38)
[2019-05-03 07:53] VITALS: BP 131/71
[2019-05-03] MEDS: ACIDOPHILUS/BULGARICUS 1 EACH TAB.CHEW GT SCH ×2 (08:46→17:40)
[2019-05-03] MEDS: MULTIVIT W/MINERALS 1 TAB TABLET GT SCH (08:46)
[2019-05-03] MEDS: CALCIUM CARBONATE 500 MG TAB.CHEW GT SCH ×2 (08:46→17:40)
[2019-05-03] MEDS: FERROUS SULFATE UDC 300 MG/5 ML UDC GT SCH ×2 (08:46→17:40)
[2019-05-03] MEDS: LEVETIRACETAM SOL (5 ML) 100 MG/ML UDC GT SCH ×2 (08:46→20:59)
[2019-05-03] MEDS: SENNOSIDES 8.6 MG TABLET GT SCH ×2 (08:46→21:02)
[2019-05-03] MEDS: DOCUSATE SODIUM LIQ 100 MG/10 ML UDC GT SCH (08:46)
[2019-05-03] MEDS: TRILEPTAL GT SCH ×2 (08:46→21:02)
[2019-05-03] MEDS: SIMETHICONE SUSP 40 MG/0.6 ML BOTTLE GT SCH ×2 (08:46→20:59)
[2019-05-03] MEDS: Z GUARD REMEDY 4 OZ OINT TP SCH ×2 (09:00→21:02)
[2019-05-03] MEDS: VITAMINS A AND D 56.7 GM TUBE TP SCH ×2 (09:00→21:02)
[2019-05-03] MEDS: HYDROGEN PEROXIDE 480 ML BOTTLE TP SCH ×2 (09:27→23:41)
--- NOTE | 2019-05-03 09:33 | NUR ---
RT NOTE: REC'D TRACH PT ON [facility] VENT ON NOTED SETTINGS PER MD ORDERS. TRACH IS PATENT AND SECURED. TRACH CARE DONE. ECOLOGIST TECHNICIAN DONE. SX DONE PRN. VENT PLUGGED INTO RED OUTLET. ALARMS ON AND AUDIBLE. NEVA DELGADO @ BEDSIDE. NO RESP DISTRESS NOTED AT THIS TIME. WILL CONT TO MONITOR PT. Addendum: 05/03/19 at 0956 by MARCO FRANCOIS RT Amended: Links added.
[2019-05-03] MEDS: INSULIN REGULAR, HUMAN 100 UNIT/ML 3 ML VIAL SQ PRN ×2 (11:51→17:41)
[2019-05-03] MEDS: ASCORBIC ACID 500 MG TABLET GT SCH (21:02)
[2019-05-03] MEDS: INSULIN GLARGINE, 100 UNIT/ML CARTRIDGE SQ SCH (21:03)
[2019-05-03 21:12] VITALS: BP 131/73
--- NOTE | 2019-05-03 23:43 | NUR ---
PT RCVD FAUSTO'D ON MECHANICAL VENT WITH CHARTED SETTINGS. SX DONE. PT TRACH IS PATENT AND SECURE. VENT ALARMS APPEAR TO BE FUNCTIONING PROPERLY. AMBU BAG AT BEDSIDE. VENT PLUGGED INTO RED OUTLET. NO SOB NOTED. Addendum: 05/03/19 at 2344 by MICH AVILA RT Amended: Links added.
[2019-05-04] MEDS: ALBUTEROL FS 2.5 MG/3 ML VIAL.NEB NEB SCH ×4 (00:40→20:06)
[2019-05-04] MEDS: GABAPENTIN 250 MG/5 ML SOLUTION GT SCH ×3 (05:42→21:02)
[2019-05-04] MEDS: METOCLOPRAMIDE HCL 10 MG TABLET GT SCH ×3 (05:42→17:35)
[2019-05-04] MEDS: BLOOD SUGAR DIAGNOSTIC 1 EACH STRIP IN SCH ×3 (05:42→17:35)
[2019-05-04] MEDS: OMEPRAZOLE 20 MG CAPSULE.DR GT SCH (05:42)
[2019-05-04 07:46] VITALS: BP 128/78
[2019-05-04] MEDS: TRILEPTAL GT SCH ×2 (09:00→21:02)
[2019-05-04] MEDS: VITAMINS A AND D 56.7 GM TUBE TP SCH ×2 (09:00→21:02)
[2019-05-04] MEDS: CALCIUM CARBONATE 500 MG TAB.CHEW GT SCH ×2 (09:00→16:40)
[2019-05-04] MEDS: ACIDOPHILUS/BULGARICUS 1 EACH TAB.CHEW GT SCH ×2 (09:00→16:40)
[2019-05-04] MEDS: Z GUARD REMEDY 4 OZ OINT TP SCH ×2 (09:00→21:02)
[2019-05-04] MEDS: HYDROGEN PEROXIDE 480 ML BOTTLE TP SCH ×2 (09:00→20:06)
[2019-05-04] MEDS: LEVETIRACETAM SOL (5 ML) 100 MG/ML UDC GT SCH ×2 (09:00→21:01)
[2019-05-04] MEDS: MULTIVIT W/MINERALS 1 TAB TABLET GT SCH (09:00)
[2019-05-04] MEDS: SENNOSIDES 8.6 MG TABLET GT SCH ×2 (09:00→21:02)
[2019-05-04] MEDS: DOCUSATE SODIUM LIQ 100 MG/10 ML UDC GT SCH (09:00)
[2019-05-04] MEDS: SIMETHICONE SUSP 40 MG/0.6 ML BOTTLE GT SCH ×2 (09:00→21:01)
[2019-05-04] MEDS: FERROUS SULFATE UDC 300 MG/5 ML UDC GT SCH ×2 (09:00→16:40)
--- NOTE | 2019-05-04 12:27 | NUR ---
Seen and examined by Dr. Luis, reviewed recent BMP result on 05/02 (BUN 35 and Creat 1.6), Creatinine level improved from 3.1 on 04/19/19. Nephrostomy tube draining yellow urine, no hematuria. Resident was also seen by Gail Vargas NP, NNO given.
[2019-05-04] MEDS: INSULIN REGULAR, HUMAN 100 UNIT/ML 3 ML VIAL SQ PRN ×2 (13:07→17:35)
[2019-05-04] MEDS: GLUCERNA 1.2 1,000 ML BOTTLE GT PRN (18:59)
[2019-05-04 19:57] VITALS: BP 123/68
[2019-05-04] MEDS: ASCORBIC ACID 500 MG TABLET GT SCH (21:02)
[2019-05-04] MEDS: POVIDONE-IODINE OINT 28.4 GM TUBE TP SCH (21:02)
[2019-05-04] MEDS: INSULIN GLARGINE, 100 UNIT/ML CARTRIDGE SQ SCH (21:36)
[2019-05-05] MEDS: INSULIN REGULAR, HUMAN 100 UNIT/ML 3 ML VIAL SQ PRN ×3 (00:13→23:34)
[2019-05-05] MEDS: BLOOD SUGAR DIAGNOSTIC 1 EACH STRIP IN SCH ×6 (00:13→23:33)
[2019-05-05] MEDS: METOCLOPRAMIDE HCL 10 MG TABLET GT SCH ×5 (00:13→23:33)
[2019-05-05] MEDS: ALBUTEROL FS 2.5 MG/3 ML VIAL.NEB NEB SCH ×4 (01:27→19:47)
--- NOTE | 2019-05-05 05:17 | NUR ---
PATIENT RECEIVED ON TRACH TO VENT WITH SETTINGS OF AC 16, 550 VT, 30%, +5. SUCTIONED WITH LAVAGE FOR MINIMAL, THIN, FROTHY-WHITE SECRETIONS. GIVEN IN-LINE TREATMENTS WITH NO ADVERSE REACTIONS. AMBU BAG AT BEDSIDE. VENT ALARM AUDIBLE AND VISIBLE. VENT PLUGGED INTO RED OUTLET. Addendum: 05/05/19 at 0519 by SARA MOLINA RT Amended: Links added.
[2019-05-05] MEDS: GABAPENTIN 250 MG/5 ML SOLUTION GT SCH ×3 (05:46→21:03)
[2019-05-05] MEDS: OMEPRAZOLE 20 MG CAPSULE.DR GT SCH (05:46)
[2019-05-05] MEDS: MAGNESIUM HYDROXIDE 30 ML UDC GT PRN (06:58)
[2019-05-05 08:01] VITALS: BP 119/73
[2019-05-05] MEDS: HYDROGEN PEROXIDE 480 ML BOTTLE TP SCH ×2 (09:00→20:58)
[2019-05-05] MEDS: LEVETIRACETAM SOL (5 ML) 100 MG/ML UDC GT SCH ×2 (09:59→21:03)
[2019-05-05] MEDS: Z GUARD REMEDY 4 OZ OINT TP SCH ×2 (09:59→21:03)
[2019-05-05] MEDS: DOCUSATE SODIUM LIQ 100 MG/10 ML UDC GT SCH (09:59)
[2019-05-05] MEDS: ACIDOPHILUS/BULGARICUS 1 EACH TAB.CHEW GT SCH ×2 (09:59→17:23)
[2019-05-05] MEDS: CALCIUM CARBONATE 500 MG TAB.CHEW GT SCH ×2 (09:59→17:23)
[2019-05-05] MEDS: FERROUS SULFATE UDC 300 MG/5 ML UDC GT SCH ×2 (09:59→17:23)
[2019-05-05] MEDS: TRILEPTAL GT SCH ×2 (09:59→21:03)
[2019-05-05] MEDS: SIMETHICONE SUSP 40 MG/0.6 ML BOTTLE GT SCH ×2 (09:59→21:03)
[2019-05-05] MEDS: MULTIVIT W/MINERALS 1 TAB TABLET GT SCH (09:59)
[2019-05-05] MEDS: SENNOSIDES 8.6 MG TABLET GT SCH ×2 (09:59→21:03)
[2019-05-05] MEDS: VITAMINS A AND D 56.7 GM TUBE TP SCH ×2 (10:00→21:03)
--- NOTE | 2019-05-05 18:33 | NUR ---
RT NOTE PT REMAINS MECHANICALLY VENTILATED VIA CUFFED TRACHEOSTOMY TUBE. CUFF INFLATED. TRACH TUBE MIDLINE AND SECURE. VENTILATOR SETTINGS PRESCRIBED. ALARMS SET PER PROTOCOL AND AUDIBLE. VENT PLUGGED IN TO RED OUTLET. AMBU BAG AND BACK UP TRACH AT BED SIDE NO DISTRESS NOTED. Addendum: 05/05/19 at 1835 by MAXI BRADY RT Amended: Links added.
--- NOTE | 2019-05-05 19:48 | NUR ---
RECEIVED TRACH PT ON MECH VENT WITH NOTED SETTINGS. PT IS AWAKE, NON VERBAL AND RESPONDS TO STIMULI WHEN SUCTIONED .TRACH IS PATENT AND SECURED. COIN MACHINE SERVICE REPAIRER DONE. Q6 BREATHING TX GIVEN. NO ADVERSE REACTION NOTED. SX DONE PRN. VENT PLUGGED INTO RED OUTLET. ALARMS ON AND AUDIBLE. AMBU BAG @ BEDSIDE. NO RESP DISTRESS AT THIS TIME. WILL MONITOR T/O THE SHIFT.
[2019-05-05 20:19] VITALS: BP 139/73
[2019-05-05] MEDS: ASCORBIC ACID 500 MG TABLET GT SCH (21:03)
[2019-05-05] MEDS: INSULIN GLARGINE, 100 UNIT/ML CARTRIDGE SQ SCH (21:27)
[2019-05-06] MEDS: ALBUTEROL FS 2.5 MG/3 ML VIAL.NEB NEB SCH ×4 (01:23→19:27)
[2019-05-06] MEDS: GABAPENTIN 250 MG/5 ML SOLUTION GT SCH ×3 (05:37→21:06)
[2019-05-06] MEDS: BLOOD SUGAR DIAGNOSTIC 1 EACH STRIP IN SCH ×4 (05:37→23:47)
[2019-05-06] MEDS: OMEPRAZOLE 20 MG CAPSULE.DR GT SCH (05:37)
[2019-05-06] MEDS: METOCLOPRAMIDE HCL 10 MG TABLET GT SCH ×4 (05:37→23:47)
[2019-05-06] MEDS: GLUCERNA 1.2 1,000 ML BOTTLE GT PRN (05:38)
[2019-05-06] MEDS: INSULIN REGULAR, HUMAN 100 UNIT/ML 3 ML VIAL SQ PRN ×2 (05:39→23:47)
[2019-05-06 07:20] VITALS: BP 101/58
[2019-05-06] MEDS: TRILEPTAL GT SCH ×2 (09:00→21:06)
[2019-05-06] MEDS: SIMETHICONE SUSP 40 MG/0.6 ML BOTTLE GT SCH ×2 (09:00→21:05)
[2019-05-06] MEDS: FERROUS SULFATE UDC 300 MG/5 ML UDC GT SCH ×2 (09:00→17:25)
[2019-05-06] MEDS: Z GUARD REMEDY 4 OZ OINT TP SCH ×2 (09:00→21:06)
[2019-05-06] MEDS: MULTIVIT W/MINERALS 1 TAB TABLET GT SCH (09:00)
[2019-05-06] MEDS: DOCUSATE SODIUM LIQ 100 MG/10 ML UDC GT SCH (09:00)
[2019-05-06] MEDS: CALCIUM CARBONATE 500 MG TAB.CHEW GT SCH ×2 (09:00→17:25)
[2019-05-06] MEDS: VITAMINS A AND D 56.7 GM TUBE TP SCH ×2 (09:00→21:06)
[2019-05-06] MEDS: LEVETIRACETAM SOL (5 ML) 100 MG/ML UDC GT SCH ×2 (09:00→21:05)
[2019-05-06] MEDS: SENNOSIDES 8.6 MG TABLET GT SCH ×2 (09:00→21:06)
[2019-05-06] MEDS: ACIDOPHILUS/BULGARICUS 1 EACH TAB.CHEW GT SCH ×2 (09:00→17:25)
[2019-05-06] MEDS: HYDROGEN PEROXIDE 480 ML BOTTLE TP SCH ×2 (09:11→21:19)
--- NOTE | 2019-05-06 11:03 | NUR ---
Notified Dr. Luis that patient's urine from nephrostomy tube is yellow but with streak of blood. He said to continue holding Heparin for now.
--- NOTE | 2019-05-06 16:58 | NUR ---
RECEIVED PT STABLE ON MV, SETTINGS ARE AC 16 550 +5 @ 30% FIO2, ALARMS ARE ON AND AUDIBLE, VENT PLUG IN RED OUTLET, BACK UP TRACH AND AMBU BAG IS AT BEDSIDE, TRACH PATENT AND SECURED WILL CONTINUE TO MONITOR Addendum: 05/06/19 at 1658 by ASHLI GRIGGS RT Amended: Links added.
[2019-05-06 19:32] VITALS: BP 127/64
[2019-05-06] MEDS: ASCORBIC ACID 500 MG TABLET GT SCH (21:06)
[2019-05-06] MEDS: INSULIN GLARGINE, 100 UNIT/ML CARTRIDGE SQ SCH (21:23)
[2019-05-07] MEDS: ALBUTEROL FS 2.5 MG/3 ML VIAL.NEB NEB SCH ×4 (01:22→19:39)
[2019-05-07] MEDS: GABAPENTIN 250 MG/5 ML SOLUTION GT SCH ×3 (05:20→21:31)
[2019-05-07] MEDS: OMEPRAZOLE 20 MG CAPSULE.DR GT SCH (05:20)
[2019-05-07] MEDS: METOCLOPRAMIDE HCL 10 MG TABLET GT SCH ×4 (05:20→23:28)
--- NOTE | 2019-05-07 05:23 | NUR ---
RT Patient remained on continuous vent support on noted vent settings.Breathing treatment was given ,vent alarms are set and audible. Airway patent and secured. Patient stable throughout the shift. Will continue to monitor. Addendum: 05/07/19 at 0525 by DIEGO BRADY RT Amended: Links added.
[2019-05-07] MEDS: GLUCERNA 1.2 1,000 ML BOTTLE GT PRN (05:37)
[2019-05-07] MEDS: BLOOD SUGAR DIAGNOSTIC 1 EACH STRIP IN SCH ×3 (05:37→17:43)
[2019-05-07] MEDS: INSULIN REGULAR, HUMAN 100 UNIT/ML 3 ML VIAL SQ PRN (05:38)
[2019-05-07 07:49] VITALS: BP 121/65
--- NOTE | 2019-05-07 08:37 | NUR ---
RT NOTE: REC'D TRACH PT ON [facility] VENT ON NOTED SETTINGS PER MD ORDERS. TRACH IS PATENT AND SECURED. TRACH CARE DONE. RETAIL ADVERTISING SALES MANAGER DONE. SX DONE PRN. VENT PLUGGED INTO RED OUTLET. ALARMS ON AND AUDIBLE. NEVA DELGADO @ BEDSIDE. NO RESP DISTRESS NOTED AT THIS TIME. WILL CONT TO MONITOR PT. Addendum: 05/07/19 at 0837 by MARCO FRANCOIS RT Amended: Links added.
[2019-05-07] MEDS: HYDROGEN PEROXIDE 480 ML BOTTLE TP SCH ×2 (09:00→21:01)
[2019-05-07] MEDS: SENNOSIDES 8.6 MG TABLET GT SCH ×2 (09:15→21:31)
[2019-05-07] MEDS: ACIDOPHILUS/BULGARICUS 1 EACH TAB.CHEW GT SCH ×2 (09:15→17:42)
[2019-05-07] MEDS: VITAMINS A AND D 56.7 GM TUBE TP SCH ×2 (09:15→21:31)
[2019-05-07] MEDS: FERROUS SULFATE UDC 300 MG/5 ML UDC GT SCH ×2 (09:15→17:42)
[2019-05-07] MEDS: CALCIUM CARBONATE 500 MG TAB.CHEW GT SCH ×2 (09:15→17:42)
[2019-05-07] MEDS: Z GUARD REMEDY 4 OZ OINT TP SCH ×2 (09:15→21:31)
[2019-05-07] MEDS: DOCUSATE SODIUM LIQ 100 MG/10 ML UDC GT SCH (09:15)
[2019-05-07] MEDS: TRILEPTAL GT SCH ×2 (09:15→21:31)
[2019-05-07] MEDS: MULTIVIT W/MINERALS 1 TAB TABLET GT SCH (09:15)
[2019-05-07] MEDS: SIMETHICONE SUSP 40 MG/0.6 ML BOTTLE GT SCH ×2 (09:15→21:31)
[2019-05-07] MEDS: LEVETIRACETAM SOL (5 ML) 100 MG/ML UDC GT SCH ×2 (09:15→21:31)
--- NOTE | 2019-05-07 10:06 | NUR ---
Dr. Luis came to see patient, and seen urine output from nephrostomy tube with hematuria, he said to continue holding Heparin and to monitor that it is draining well. Endorsed.
--- NOTE | 2019-05-07 18:06 | NUR ---
Updated resident's sister Beckie that patient's nephrostomy tube has hematuria and Dr. Luis said to continue to hold Heparin. patient's sister is asking how long will patient keep nephrostomy tube since the goal is to prevent UTI from reoccurring. She wants to know whether patient still have UTI, informed Beckie that there is a decrease in WBC based on the most recent labs and patient is asymptomatic. She said that she will speak with Dr. Luis how long will he keep nephrostomy tube. Endorsed.
[2019-05-07 20:01] VITALS: BP 117/64
[2019-05-07] MEDS: ASCORBIC ACID 500 MG TABLET GT SCH (21:31)
[2019-05-07] MEDS: POVIDONE-IODINE OINT 28.4 GM TUBE TP SCH (21:31)
[2019-05-07] MEDS: INSULIN GLARGINE, 100 UNIT/ML CARTRIDGE SQ SCH (21:32)
[2019-05-08] MEDS: INSULIN REGULAR, HUMAN 100 UNIT/ML 3 ML VIAL SQ PRN ×4 (00:25→17:58)
[2019-05-08] MEDS: BLOOD SUGAR DIAGNOSTIC 1 EACH STRIP IN SCH ×5 (00:25→23:44)
[2019-05-08] MEDS: ALBUTEROL FS 2.5 MG/3 ML VIAL.NEB NEB SCH ×4 (01:29→19:16)
[2019-05-08] MEDS: METOCLOPRAMIDE HCL 10 MG TABLET GT SCH ×4 (05:29→23:44)
[2019-05-08] MEDS: GABAPENTIN 250 MG/5 ML SOLUTION GT SCH ×3 (05:29→21:02)
[2019-05-08] MEDS: GLUCERNA 1.2 1,000 ML BOTTLE GT PRN (05:29)
[2019-05-08] MEDS: OMEPRAZOLE 20 MG CAPSULE.DR GT SCH (05:29)
[2019-05-08 07:31] VITALS: BP 124/90
--- NOTE | 2019-05-08 08:02 | NUR ---
RT Pt received trached on mechanical ventilation with noted settings. Pt is awake and tracks with eyes. Vent is plugged into red outlet. No SOB or respiratory distress noted. Addendum: 05/08/19 at 1644 by MIMI WALKER RT Amended: Links added.
[2019-05-08] MEDS: HYDROGEN PEROXIDE 480 ML BOTTLE TP SCH ×2 (09:00→21:38)
[2019-05-08] MEDS: FERROUS SULFATE UDC 300 MG/5 ML UDC GT SCH ×2 (09:25→17:45)
[2019-05-08] MEDS: DOCUSATE SODIUM LIQ 100 MG/10 ML UDC GT SCH (09:25)
[2019-05-08] MEDS: LEVETIRACETAM SOL (5 ML) 100 MG/ML UDC GT SCH ×2 (09:26→21:02)
[2019-05-08] MEDS: ACIDOPHILUS/BULGARICUS 1 EACH TAB.CHEW GT SCH ×2 (09:26→17:45)
[2019-05-08] MEDS: TRILEPTAL GT SCH ×2 (09:27→21:02)
[2019-05-08] MEDS: SIMETHICONE SUSP 40 MG/0.6 ML BOTTLE GT SCH ×2 (09:27→21:02)
[2019-05-08] MEDS: CALCIUM CARBONATE 500 MG TAB.CHEW GT SCH ×2 (09:27→17:45)
[2019-05-08] MEDS: SENNOSIDES 8.6 MG TABLET GT SCH ×2 (09:27→21:02)
[2019-05-08] MEDS: Z GUARD REMEDY 4 OZ OINT TP SCH ×2 (09:28→21:03)
[2019-05-08] MEDS: MULTIVIT W/MINERALS 1 TAB TABLET GT SCH (09:28)
[2019-05-08] MEDS: VITAMINS A AND D 56.7 GM TUBE TP SCH ×2 (09:28→21:03)
[2019-05-08 19:49] VITALS: BP 123/63
--- NOTE | 2019-05-08 20:00 | NUR ---
RN NOTES Continues with hematuria draining from nephrostomy. Will continue to monitor.
[2019-05-08] MEDS: INSULIN GLARGINE, 100 UNIT/ML CARTRIDGE SQ SCH (21:03)
[2019-05-08] MEDS: ASCORBIC ACID 500 MG TABLET GT SCH (21:03)
--- NOTE | 2019-05-08 21:43 | NUR ---
RT NOTE Pt rec'd trached on [facility] vent on AC mode. No resp distress or sob noted. Trach is patent and secured. Sx'd for thick mod amt of pale yellow secretions. Alarms are set and audible. Vent plugged into red outlet. Ambu bag bedside. Will continue to monitor. Addendum: 05/08/19 at 2145 by LADAN WICK RT Amended: Links added.
[2019-05-09] MEDS: ALBUTEROL FS 2.5 MG/3 ML VIAL.NEB NEB SCH ×4 (01:39→13:15)
[2019-05-09] MEDS: METOCLOPRAMIDE HCL 10 MG TABLET GT SCH ×4 (05:46→23:38)
[2019-05-09] MEDS: BLOOD SUGAR DIAGNOSTIC 1 EACH STRIP IN SCH ×4 (05:46→23:38)
[2019-05-09] MEDS: GABAPENTIN 250 MG/5 ML SOLUTION GT SCH ×3 (05:46→21:32)
[2019-05-09] MEDS: OMEPRAZOLE 20 MG CAPSULE.DR GT SCH (05:46)
[2019-05-09] MEDS: HYDROGEN PEROXIDE 480 ML BOTTLE TP SCH ×2 (09:00→21:00)
[2019-05-09] MEDS: FERROUS SULFATE UDC 300 MG/5 ML UDC GT SCH ×2 (09:52→17:27)
[2019-05-09] MEDS: ACIDOPHILUS/BULGARICUS 1 EACH TAB.CHEW GT SCH ×2 (09:52→17:27)
[2019-05-09] MEDS: LEVETIRACETAM SOL (5 ML) 100 MG/ML UDC GT SCH ×2 (09:52→21:31)
[2019-05-09] MEDS: DOCUSATE SODIUM LIQ 100 MG/10 ML UDC GT SCH (09:52)
[2019-05-09] MEDS: VITAMINS A AND D 56.7 GM TUBE TP SCH ×2 (09:53→21:32)
[2019-05-09] MEDS: CALCIUM CARBONATE 500 MG TAB.CHEW GT SCH ×2 (09:53→17:27)
[2019-05-09] MEDS: Z GUARD REMEDY 4 OZ OINT TP SCH ×2 (09:53→21:32)
[2019-05-09] MEDS: SIMETHICONE SUSP 40 MG/0.6 ML BOTTLE GT SCH ×2 (09:53→21:31)
[2019-05-09] MEDS: MULTIVIT W/MINERALS 1 TAB TABLET GT SCH (09:53)
[2019-05-09] MEDS: SENNOSIDES 8.6 MG TABLET GT SCH ×2 (09:53→21:32)
[2019-05-09] MEDS: TRILEPTAL GT SCH ×2 (09:53→21:32)
[2019-05-09 10:42] VITALS: BP 124/68
--- NOTE | 2019-05-09 14:31 | NUR ---
Land Measurer left voicemail for the patients sister, Beckie Chu inviting family to attend or participate via phone conference in the IDT Plan of Care Conference being held this Monday, May 13, 2019 from 12:30pm-1:30pm in the activities room.
[2019-05-09] MEDS: GLUCERNA 1.2 1,000 ML BOTTLE GT PRN (17:27)
--- NOTE | 2019-05-09 20:00 | NUR ---
RN NOTES Nephrostomy continues draining bloody urine. Urine culture from maher catheter and from nephrostomy collected and sent to lab today. Will continue to monitor.
[2019-05-09 21:04] VITALS: BP 119/69
[2019-05-09] MEDS: ASCORBIC ACID 500 MG TABLET GT SCH (21:32)
[2019-05-09] MEDS: INSULIN GLARGINE, 100 UNIT/ML CARTRIDGE SQ SCH (21:32)
[2019-05-10] MEDS: ALBUTEROL FS 2.5 MG/3 ML VIAL.NEB NEB SCH ×4 (01:42→19:33)
--- NOTE | 2019-05-10 03:58 | NUR ---
RT NOTE Pt rec'd trached on [facility] vent on AC mode. No resp distress or sob noted. Trach is patent and secured. Sx'd for thick mod amt of pale yellow secretions. Alarms are set and audible. Vent plugged into red outlet. Ambu bag bedside. Will continue to monitor. Addendum: 05/10/19 at 0358 by LADAN WICK RT Amended: Links added.
[2019-05-10] MEDS: GABAPENTIN 250 MG/5 ML SOLUTION GT SCH ×3 (05:36→21:31)
[2019-05-10] MEDS: OMEPRAZOLE 20 MG CAPSULE.DR GT SCH (05:36)
[2019-05-10] MEDS: BLOOD SUGAR DIAGNOSTIC 1 EACH STRIP IN SCH ×4 (05:36→23:46)
[2019-05-10] MEDS: METOCLOPRAMIDE HCL 10 MG TABLET GT SCH ×4 (05:36→23:46)
[2019-05-10 07:51] VITALS: BP 116/54
[2019-05-10] MEDS: HYDROGEN PEROXIDE 480 ML BOTTLE TP SCH ×2 (09:14→19:33)
--- NOTE | 2019-05-10 09:23 | NUR ---
RT NOTE: REC'D TRACH PT ON [facility] VENT ON NOTED SETTINGS PER MD ORDERS. TRACH IS PATENT AND SECURED. TRACH CARE DONE. MERCHANDISING CONSULTANT DONE. SX DONE PRN. VENT PLUGGED INTO RED OUTLET. ALARMS ON AND AUDIBLE. NEVA DELGADO @ BEDSIDE. NO RESP DISTRESS NOTED AT THIS TIME. WILL CONT TO MONITOR PT. Addendum: 05/10/19 at 0923 by MARCO FRANCOIS RT Amended: Links added.
[2019-05-10] MEDS: ACIDOPHILUS/BULGARICUS 1 EACH TAB.CHEW GT SCH ×2 (09:39→16:54)
[2019-05-10] MEDS: LEVETIRACETAM SOL (5 ML) 100 MG/ML UDC GT SCH ×2 (09:39→21:31)
[2019-05-10] MEDS: FERROUS SULFATE UDC 300 MG/5 ML UDC GT SCH ×2 (09:39→16:54)
[2019-05-10] MEDS: DOCUSATE SODIUM LIQ 100 MG/10 ML UDC GT SCH (09:39)
[2019-05-10] MEDS: TRILEPTAL GT SCH ×2 (09:40→21:31)
[2019-05-10] MEDS: VITAMINS A AND D 56.7 GM TUBE TP SCH ×2 (09:40→21:32)
[2019-05-10] MEDS: SENNOSIDES 8.6 MG TABLET GT SCH ×2 (09:40→21:31)
[2019-05-10] MEDS: Z GUARD REMEDY 4 OZ OINT TP SCH ×2 (09:40→21:32)
[2019-05-10] MEDS: SIMETHICONE SUSP 40 MG/0.6 ML BOTTLE GT SCH ×2 (09:40→21:31)
[2019-05-10] MEDS: MULTIVIT W/MINERALS 1 TAB TABLET GT SCH (09:40)
[2019-05-10] MEDS: CALCIUM CARBONATE 500 MG TAB.CHEW GT SCH ×2 (09:40→16:54)
[2019-05-10] MEDS: GLUCERNA 1.2 1,000 ML BOTTLE GT PRN (14:48)
--- NOTE | 2019-05-10 19:33 | NUR ---
RT NOTE: RECEIVED TRACH PT ON [facility] VENT ON NOTED SETTINGS PER MD ORDERS. TRACH IS PATENT AND SECURED. TRACH CARE DONE. ZIPPER SEWING MACHINE OPERATOR DONE. Q6 BREATHING TX GIVEN WITH NO ADVERSE REACTION NOTED. SX DONE PRN. VENT PLUGGED INTO RED OUTLET. ALARMS ON AND AUDIBLE. KATHARINEU BAG @ BEDSIDE. NO RESP DISTRESS AT THIS TIME. WILL CONT TO MONITOR PT. Addendum: 05/11/19 at 0308 by QIANA MARY RT Amended: Links added.
[2019-05-10 20:56] VITALS: BP 116/71
[2019-05-10] MEDS: POVIDONE-IODINE OINT 28.4 GM TUBE TP SCH (21:31)
[2019-05-10] MEDS: ASCORBIC ACID 500 MG TABLET GT SCH (21:31)
[2019-05-10] MEDS: INSULIN GLARGINE, 100 UNIT/ML CARTRIDGE SQ SCH (21:32)
[2019-05-11] MEDS: ALBUTEROL FS 2.5 MG/3 ML VIAL.NEB NEB SCH ×4 (01:51→19:22)
[2019-05-11] MEDS: OMEPRAZOLE 20 MG CAPSULE.DR GT SCH (05:39)
[2019-05-11] MEDS: METOCLOPRAMIDE HCL 10 MG TABLET GT SCH ×4 (05:39→23:38)
[2019-05-11] MEDS: GABAPENTIN 250 MG/5 ML SOLUTION GT SCH ×3 (05:39→21:49)
[2019-05-11] MEDS: BLOOD SUGAR DIAGNOSTIC 1 EACH STRIP IN SCH ×4 (05:39→23:38)
--- NOTE | 2019-05-11 06:06 | NUR ---
RN NOTES Nephrostomy draining bloody urine. Output 200ml during shift. Pt remains afebrile. Bourgeois catheter urine output 600ml and urine clear and yellow.
[2019-05-11 07:30] VITALS: BP 108/61
[2019-05-11] MEDS: FERROUS SULFATE UDC 300 MG/5 ML UDC GT SCH ×2 (08:03→16:52)
[2019-05-11] MEDS: DOCUSATE SODIUM LIQ 100 MG/10 ML UDC GT SCH (08:03)
[2019-05-11] MEDS: LEVETIRACETAM SOL (5 ML) 100 MG/ML UDC GT SCH ×2 (08:04→21:49)
[2019-05-11] MEDS: ACIDOPHILUS/BULGARICUS 1 EACH TAB.CHEW GT SCH ×2 (08:04→16:52)
[2019-05-11] MEDS: SIMETHICONE SUSP 40 MG/0.6 ML BOTTLE GT SCH ×2 (08:05→21:49)
[2019-05-11] MEDS: SENNOSIDES 8.6 MG TABLET GT SCH ×2 (08:06→21:49)
[2019-05-11] MEDS: CALCIUM CARBONATE 500 MG TAB.CHEW GT SCH ×2 (08:06→16:52)
[2019-05-11] MEDS: Z GUARD REMEDY 4 OZ OINT TP SCH ×2 (08:06→21:49)
[2019-05-11] MEDS: VITAMINS A AND D 56.7 GM TUBE TP SCH ×2 (08:07→21:49)
[2019-05-11] MEDS: HYDROGEN PEROXIDE 480 ML BOTTLE TP SCH ×2 (08:07→21:00)
[2019-05-11] MEDS: TRILEPTAL GT SCH ×2 (08:08→21:49)
[2019-05-11] MEDS: MULTIVIT W/MINERALS 1 TAB TABLET GT SCH (08:10)
[2019-05-11 09:00] VITALS: BP 108/61
--- NOTE | 2019-05-11 09:08 | NUR ---
RT NOTE: REC'D TRACH PT ON [facility] VENT ON NOTED SETTINGS PER MD ORDERS. TRACH IS PATENT AND SECURED. TRACH CARE DONE. INSPECTOR MACHINE PARTS DONE. SX DONE PRN. VENT PLUGGED INTO RED OUTLET. ALARMS ON AND AUDIBLE. NEVA DELGADO @ BEDSIDE. NO RESP DISTRESS NOTED AT THIS TIME. WILL CONT TO MONITOR PT. Addendum: 05/11/19 at 0908 by MARCO FRANCOIS RT Amended: Links added.
[2019-05-11] MEDS: GLUCERNA 1.2 1,000 ML BOTTLE GT PRN (11:11)
[2019-05-11] MEDS: INSULIN REGULAR, HUMAN 100 UNIT/ML 3 ML VIAL SQ PRN ×3 (11:36→23:39)
--- NOTE | 2019-05-11 15:00 | NUR ---
Seen and examined by NAN Vargas, no new order given.
--- NOTE | 2019-05-11 17:38 | NUR ---
Left a message to NAN Loredo regarding preliminary urine culture result showing gram negative rods, specimen obtained from nephrostomy tube and F/C. Urine output from nephrostomy tube still with hematuria and slight hematuria also present in the FC. Heparin still on hold. Afebrile at 97.8.
--- NOTE | 2019-05-11 19:00 | NUR ---
Received a message from NAN Loredo to wait for the final urine culture. Endorsed.
--- NOTE | 2019-05-11 20:04 | NUR ---
PT RECEIVE STABLE ON MV, SETTINGS ARE AC 16 550 +5 30%, ALARMS ARE ON AND AUDIBLE, SPARE TRACH AND AMBU BAG IS AT BEDSIDE, TRACH PATENT AND SECURED, VENT PLUG IN RED OUTLET, WILL CONTINUE TO MONITOR Addendum: 05/11/19 at 2006 by ASHLI GRIGGS RT Amended: Links added.
[2019-05-11] MEDS: ASCORBIC ACID 500 MG TABLET GT SCH (21:49)
[2019-05-11] MEDS: INSULIN GLARGINE, 100 UNIT/ML CARTRIDGE SQ SCH (22:07)
[2019-05-11 22:39] VITALS: BP 115/66
[2019-05-12] MEDS: ALBUTEROL FS 2.5 MG/3 ML VIAL.NEB NEB SCH ×4 (01:12→20:01)
[2019-05-12] MEDS: METOCLOPRAMIDE HCL 10 MG TABLET GT SCH ×4 (05:36→23:28)
[2019-05-12] MEDS: GABAPENTIN 250 MG/5 ML SOLUTION GT SCH ×3 (05:36→21:46)
[2019-05-12] MEDS: BLOOD SUGAR DIAGNOSTIC 1 EACH STRIP IN SCH ×4 (05:36→23:28)
[2019-05-12] MEDS: OMEPRAZOLE 20 MG CAPSULE.DR GT SCH (05:36)
[2019-05-12] MEDS: INSULIN REGULAR, HUMAN 100 UNIT/ML 3 ML VIAL SQ PRN ×4 (05:37→23:28)
[2019-05-12] MEDS: GLUCERNA 1.2 1,000 ML BOTTLE GT PRN (05:38)
[2019-05-12 07:36] VITALS: BP 100/65
--- NOTE | 2019-05-12 08:52 | NUR ---
RT NOTE: REC'D TRACH PT ON [facility] VENT ON NOTED SETTINGS PER MD ORDERS. TRACH IS PATENT AND SECURED. TRACH CARE DONE. COMPUTER ANALYST SUPERVISOR DONE. SX DONE PRN. VENT PLUGGED INTO RED OUTLET. ALARMS ON AND AUDIBLE. NEVA DELGADO @ BEDSIDE. NO RESP DISTRESS NOTED AT THIS TIME. WILL CONT TO MONITOR PT. Addendum: 05/12/19 at 0853 by MARCO FRANCOIS RT Amended: Links added.
[2019-05-12] MEDS: HYDROGEN PEROXIDE 480 ML BOTTLE TP SCH ×2 (09:02→21:16)
[2019-05-12] MEDS: TRILEPTAL GT SCH ×2 (09:26→21:46)
[2019-05-12] MEDS: SIMETHICONE SUSP 40 MG/0.6 ML BOTTLE GT SCH ×2 (09:27→21:46)
[2019-05-12] MEDS: FERROUS SULFATE UDC 300 MG/5 ML UDC GT SCH ×2 (09:27→16:27)
[2019-05-12] MEDS: DOCUSATE SODIUM LIQ 100 MG/10 ML UDC GT SCH (09:27)
[2019-05-12] MEDS: VITAMINS A AND D 56.7 GM TUBE TP SCH ×2 (09:27→21:46)
[2019-05-12] MEDS: MULTIVIT W/MINERALS 1 TAB TABLET GT SCH (09:27)
[2019-05-12] MEDS: SENNOSIDES 8.6 MG TABLET GT SCH ×2 (09:27→21:46)
[2019-05-12] MEDS: CALCIUM CARBONATE 500 MG TAB.CHEW GT SCH ×2 (09:27→16:27)
[2019-05-12] MEDS: ACIDOPHILUS/BULGARICUS 1 EACH TAB.CHEW GT SCH ×2 (09:27→16:27)
[2019-05-12] MEDS: LEVETIRACETAM SOL (5 ML) 100 MG/ML UDC GT SCH ×2 (09:27→21:46)
[2019-05-12] MEDS: Z GUARD REMEDY 4 OZ OINT TP SCH ×2 (09:27→21:46)
--- NOTE | 2019-05-12 10:50 | NUR ---
Asked NAN Loredo if she wanted to reculture nares for MRSA clearance. She said she will check later.
--- NOTE | 2019-05-12 19:08 | NUR ---
Informed NAN Loredo that urine culture results are available. Asked her to review them.
--- NOTE | 2019-05-12 20:02 | NUR ---
RT NOTE PATIENT RECEIVED TRACH'D ON MECHANICAL VENT IN STABLE CONDITION. PATIENT IS TOLERATING CURRENT ORDERED VENT SETTINGS WELL. NO SIGNS OF RESPIRATORY DISTRESS NOTED. TRACH IS PATENT AND SECURE. ALARMS ARE SET AND AUDIBLE. MECHANICAL VENT IS PLUGGED INTO RED OUTLET. EMERGENCY EQUIPMENT IS AT PATIENT BEDSIDE, WILL CONTINUE TO MONITOR. Addendum: 05/12/19 at 2027 by FRANCO ALBARRAN RT Amended: Links added.
[2019-05-12 20:22] VITALS: BP 118/68
[2019-05-12] MEDS: ASCORBIC ACID 500 MG TABLET GT SCH (21:46)
[2019-05-12] MEDS: INSULIN GLARGINE, 100 UNIT/ML CARTRIDGE SQ SCH (21:48)
[2019-05-13] MEDS: ALBUTEROL FS 2.5 MG/3 ML VIAL.NEB NEB SCH ×4 (01:57→19:30)
[2019-05-13] MEDS: GLUCERNA 1.2 1,000 ML BOTTLE GT PRN (02:00)
[2019-05-13] MEDS: BLOOD SUGAR DIAGNOSTIC 1 EACH STRIP IN SCH ×4 (05:18→23:23)
[2019-05-13] MEDS: METOCLOPRAMIDE HCL 10 MG TABLET GT SCH ×4 (05:18→23:23)
[2019-05-13] MEDS: GABAPENTIN 250 MG/5 ML SOLUTION GT SCH ×3 (05:18→20:40)
[2019-05-13] MEDS: OMEPRAZOLE 20 MG CAPSULE.DR GT SCH (05:18)
[2019-05-13] MEDS: INSULIN REGULAR, HUMAN 100 UNIT/ML 3 ML VIAL SQ PRN ×4 (05:18→23:23)
[2019-05-13 07:55] VITALS: BP 109/59
[2019-05-13] MEDS: HYDROGEN PEROXIDE 480 ML BOTTLE TP SCH ×2 (09:00→20:40)
[2019-05-13] MEDS: MULTIVIT W/MINERALS 1 TAB TABLET GT SCH (09:13)
[2019-05-13] MEDS: SENNOSIDES 8.6 MG TABLET GT SCH ×2 (09:13→20:40)
[2019-05-13] MEDS: DOCUSATE SODIUM LIQ 100 MG/10 ML UDC GT SCH (09:13)
[2019-05-13] MEDS: FERROUS SULFATE UDC 300 MG/5 ML UDC GT SCH ×2 (09:13→17:35)
[2019-05-13] MEDS: LEVETIRACETAM SOL (5 ML) 100 MG/ML UDC GT SCH ×2 (09:13→20:40)
[2019-05-13] MEDS: Z GUARD REMEDY 4 OZ OINT TP SCH ×2 (09:13→20:40)
[2019-05-13] MEDS: ACIDOPHILUS/BULGARICUS 1 EACH TAB.CHEW GT SCH ×2 (09:13→17:35)
[2019-05-13] MEDS: SIMETHICONE SUSP 40 MG/0.6 ML BOTTLE GT SCH ×2 (09:13→20:40)
[2019-05-13] MEDS: CALCIUM CARBONATE 500 MG TAB.CHEW GT SCH ×2 (09:13→17:35)
[2019-05-13] MEDS: TRILEPTAL GT SCH ×2 (09:13→20:40)
[2019-05-13] MEDS: VITAMINS A AND D 56.7 GM TUBE TP SCH ×2 (09:13→20:40)
--- NOTE | 2019-05-13 10:45 | NUR ---
RT NOTE RECEIVED PT MECHANICALLY VENTILATED VIA SHILEY 8 XLT CUFFED TRACHEOSTOMY TUBE. CUFF INFLATED. TRACH TUBE MIDLINE AND SECURE. VENTILATOR SETTINGS PRESCRIBED. ALARMS SET PER PROTOCOL AND AUDIBLE. VENT PLUGGED IN TO RED OUTLET. AMBU BAG AND BACK UP TRACH AT BED SIDE. NO DISTRESS NOTED. Addendum: 05/13/19 at 1046 by MAXI BRADY RT Amended: Links added.
--- NOTE | 2019-05-13 15:52 | NUR ---
INTERDISCIPLINARY PLAN OF CARE CONFERENCE was held today. The patients conservator, Beckie Chu did not attend. Charge nurse 04/18 UTI Tx; contact isolation VRE body fluid; contact isolation ESBL; 04/[address] Felix and Interdisciplinary team discussed the plan of care in detail. Current orders as well as treatments and medications were reviewed. Please see other disciplines IDT notes for further details.
--- NOTE | 2019-05-13 18:10 | NUR ---
Referred final urine culture result to NAN Loredo, she said that she will not treat until she knows CBC result. Ordered CBC and BMP in AM.
[2019-05-13 20:22] VITALS: BP 120/98
[2019-05-13] MEDS: POVIDONE-IODINE OINT 28.4 GM TUBE TP SCH (20:40)
[2019-05-13] MEDS: ASCORBIC ACID 500 MG TABLET GT SCH (20:40)
[2019-05-13] MEDS: INSULIN GLARGINE, 100 UNIT/ML CARTRIDGE SQ SCH (21:15)
[2019-05-14] MEDS: ALBUTEROL FS 2.5 MG/3 ML VIAL.NEB NEB SCH ×5 (01:22→23:46)
--- NOTE | 2019-05-14 03:36 | NUR ---
RT Pt received trach'd and on [facility] vent w charted settings. Vent is plugged into the red outlet. Alarms are set and audible. Bmv at [facility]. Pt is stable. No respiratory distress or sob noted t/o shift. Will continue to monitor. Addendum: 05/14/19 at 0354 by JULIETH REY RT Amended: Links added.
[2019-05-14] MEDS: METOCLOPRAMIDE HCL 10 MG TABLET GT SCH ×4 (05:09→23:10)
[2019-05-14] MEDS: GLUCERNA 1.2 1,000 ML BOTTLE GT PRN ×2 (05:09→23:10)
[2019-05-14] MEDS: GABAPENTIN 250 MG/5 ML SOLUTION GT SCH ×3 (05:09→20:14)
[2019-05-14] MEDS: OMEPRAZOLE 20 MG CAPSULE.DR GT SCH (05:09)
[2019-05-14] MEDS: INSULIN REGULAR, HUMAN 100 UNIT/ML 3 ML VIAL SQ PRN ×4 (05:17→23:10)
[2019-05-14] MEDS: BLOOD SUGAR DIAGNOSTIC 1 EACH STRIP IN SCH ×4 (05:17→23:10)
--- NOTE | 2019-05-14 07:06 | NUR ---
Patient nephrostomy output still reddish/bloody.Afebrile. Will continue to monitor.
[2019-05-14 07:09] LABS: BASOPHILS # (AUTO) 0.1 /CMM (0.0-0.2); BASOPHILS % (AUTO) 0.6 % (0.0-2.0); EOSINOPHILS % (AUTO) 5.7 % (0.0-6.0); LYMPHOCYTES # (AUTO) 2.7 /CMM (0.8-4.8); MEAN CORPUSCULAR HGB CONC 34 g/dl (31.0-36.0); MEAN CORPUSCULAR VOLUME 102 fL (82-100); MONOCYTES % (AUTO) 8.9 % (2.0-12.0); NEUTROPHILS # (AUTO) 7.3 /CMM (1.8-8.9); NEUTROPHILS % (AUTO) 61.8 % (43.0-81.0); PLATELET COUNT (AUTO) 352 /CMM (150-450); WHITE BLOOD COUNT (AUTO) 11.7 K/uL (4.3-11.0)
[2019-05-14 07:21] LABS: CREATININE 2.5 mg/dL (0.6-1.3); POTASSIUM 3.7 mmol/L (3.5-5.1)
[2019-05-14 07:35] LABS: RED BLOOD CELL COUNT(AUTO) 1.99 MIL/uL (4.0-5.2)
[2019-05-14 07:36] LABS: HEMATOCRIT 20 % (33-45); HEMOGLOBIN 6.9 g/dL (11.5-14.8)
[2019-05-14 07:56] VITALS: BP 121/65
[2019-05-14] MEDS: Z GUARD REMEDY 4 OZ OINT TP SCH ×2 (09:00→20:14)
[2019-05-14] MEDS: VITAMINS A AND D 56.7 GM TUBE TP SCH ×2 (09:00→20:14)
--- NOTE | 2019-05-14 09:00 | NUR ---
Notified Dr. Luis of CBC result with Hbg of 6.9, new order given to transfuse 1 unit PRBC. Resident's sister Beckie made aware of new order and gave consent for blood transfusion, witnessed by 2 licensed nurses. Resident's nephrostomy still with hematuria. Dr. Luis said to inform urologist. Orders carried out.
--- NOTE | 2019-05-14 09:19 | NUR ---
RT NOTE: REC'D TRACH PT ON [facility] VENT ON NOTED SETTINGS PER MD ORDERS. TRACH IS PATENT AND SECURED. TRACH CARE DONE. HOSPITAL CLEANING SPECIALIST DONE. SX DONE PRN. VENT PLUGGED INTO RED OUTLET. ALARMS ON AND AUDIBLE. NEVA DELGADO @ BEDSIDE. NO RESP DISTRESS NOTED AT THIS TIME. WILL CONT TO MONITOR PT. Addendum: 05/14/19 at 0919 by MARCO FRANCOIS RT Amended: Links added.
[2019-05-14 09:23] LABS: BAND % (MANUAL) 3 % (0.0-5.0); EOSINOPHILS % (MANUAL) 9 % (0-4); LYMPHOCYTES % (MANUAL) 16 % (16-48); MONOCYTES % (MANUAL) 6 % (0-11.0); NEUTROPHILS % (MANUAL) 66 (42-76)
[2019-05-14] MEDS: HYDROGEN PEROXIDE 480 ML BOTTLE TP SCH ×2 (09:25→20:14)
[2019-05-14] MEDS: LEVETIRACETAM SOL (5 ML) 100 MG/ML UDC GT SCH ×2 (09:49→20:14)
[2019-05-14] MEDS: FERROUS SULFATE UDC 300 MG/5 ML UDC GT SCH ×2 (09:49→16:59)
[2019-05-14] MEDS: DOCUSATE SODIUM LIQ 100 MG/10 ML UDC GT SCH (09:49)
[2019-05-14] MEDS: ACIDOPHILUS/BULGARICUS 1 EACH TAB.CHEW GT SCH ×2 (09:49→16:59)
[2019-05-14] MEDS: TRILEPTAL GT SCH ×2 (09:50→20:14)
[2019-05-14] MEDS: SENNOSIDES 8.6 MG TABLET GT SCH ×2 (09:50→20:14)
[2019-05-14] MEDS: MULTIVIT W/MINERALS 1 TAB TABLET GT SCH (09:50)
[2019-05-14] MEDS: CALCIUM CARBONATE 500 MG TAB.CHEW GT SCH ×2 (09:50→17:00)
[2019-05-14] MEDS: SIMETHICONE SUSP 40 MG/0.6 ML BOTTLE GT SCH ×2 (09:50→20:14)
--- NOTE | 2019-05-14 10:14 | NUR ---
Notified INTEGRATION ENGINEER Gertrude Calhoun of CBC (WBC 11.7) and BMP result, asked if she would like to treat the patient for UTI since reculture of urine shows ESBL and Proteus Mirabilis, she said "no new orders".
[2019-05-14 12:32] VITALS: BP 118/66
--- NOTE | 2019-05-14 12:45 | NUR ---
One unit of PRBC started, no adverse reaction noted. Midline in the L upper arm patent, no infiltration. Resident awake, no SOB, remain on ventilator with current ventilator setting well tolerated.
[2019-05-14 12:55] VITALS: BP 128/68
--- NOTE | 2019-05-14 13:52 | NUR ---
Spoke with Dr. Braga, urologist and made aware that nephrostomy is draining but still with hematuria. Relayed most recent Creatinine level to MD as level went down at some point and went back up (04/19/19 =3.1, 04/22/19 =1.6, 05/14/19 = 2.5). He said that there is nothing he can do about it as long as it is draining, she needs it (nephrostomy tube) as Creatinine went down.
[2019-05-14 15:18] VITALS: BP 135/70
[2019-05-14 16:25] VITALS: BP 107/63
--- NOTE | 2019-05-14 16:30 | NUR ---
Blood transfusion completed, V/S stable, no adverse reaction noted from BT, midline in the L upper arm patent, flushed with 10 ml NS.
[2019-05-14 19:57] VITALS: BP 104/76
[2019-05-14] MEDS: ASCORBIC ACID 500 MG TABLET GT SCH (20:14)
[2019-05-14] MEDS: INSULIN GLARGINE, 100 UNIT/ML CARTRIDGE SQ SCH (21:17)
[2019-05-15] MEDS: OMEPRAZOLE 20 MG CAPSULE.DR GT SCH (04:51)
[2019-05-15] MEDS: GABAPENTIN 250 MG/5 ML SOLUTION GT SCH ×3 (04:51→20:11)
[2019-05-15] MEDS: METOCLOPRAMIDE HCL 10 MG TABLET GT SCH ×3 (05:02→17:26)
[2019-05-15] MEDS: INSULIN REGULAR, HUMAN 100 UNIT/ML 3 ML VIAL SQ PRN ×3 (05:28→17:39)
[2019-05-15] MEDS: BLOOD SUGAR DIAGNOSTIC 1 EACH STRIP IN SCH ×3 (05:28→17:26)
[2019-05-15] MEDS: ALBUTEROL FS 2.5 MG/3 ML VIAL.NEB NEB SCH ×3 (07:38→19:37)
[2019-05-15 07:53] VITALS: BP 103/64
[2019-05-15] MEDS: SIMETHICONE SUSP 40 MG/0.6 ML BOTTLE GT SCH ×2 (09:00→20:11)
[2019-05-15] MEDS: CALCIUM CARBONATE 500 MG TAB.CHEW GT SCH ×2 (09:00→17:26)
[2019-05-15] MEDS: DOCUSATE SODIUM LIQ 100 MG/10 ML UDC GT SCH (09:00)
[2019-05-15] MEDS: FERROUS SULFATE UDC 300 MG/5 ML UDC GT SCH ×2 (09:00→17:26)
[2019-05-15] MEDS: MULTIVIT W/MINERALS 1 TAB TABLET GT SCH (09:00)
[2019-05-15] MEDS: SENNOSIDES 8.6 MG TABLET GT SCH ×2 (09:00→20:11)
[2019-05-15] MEDS: LEVETIRACETAM SOL (5 ML) 100 MG/ML UDC GT SCH ×2 (09:00→20:11)
[2019-05-15] MEDS: TRILEPTAL GT SCH ×2 (09:00→20:11)
[2019-05-15] MEDS: HYDROGEN PEROXIDE 480 ML BOTTLE TP SCH ×2 (09:00→21:05)
[2019-05-15] MEDS: ACIDOPHILUS/BULGARICUS 1 EACH TAB.CHEW GT SCH ×2 (09:00→17:26)
[2019-05-15] MEDS: Z GUARD REMEDY 4 OZ OINT TP SCH ×2 (09:00→20:12)
[2019-05-15] MEDS: VITAMINS A AND D 56.7 GM TUBE TP SCH ×2 (09:00→20:12)
[2019-05-15] MEDS: GLUCERNA 1.2 1,000 ML BOTTLE GT PRN (17:26)
[2019-05-15] MEDS: ASCORBIC ACID 500 MG TABLET GT SCH (20:11)
[2019-05-15 20:44] VITALS: BP 130/67
[2019-05-15] MEDS: INSULIN GLARGINE, 100 UNIT/ML CARTRIDGE SQ SCH (21:40)
[2019-05-16] MEDS: METOCLOPRAMIDE HCL 10 MG TABLET GT SCH ×5 (00:02→23:17)
[2019-05-16] MEDS: INSULIN REGULAR, HUMAN 100 UNIT/ML 3 ML VIAL SQ PRN ×5 (00:02→23:18)
[2019-05-16] MEDS: BLOOD SUGAR DIAGNOSTIC 1 EACH STRIP IN SCH ×5 (00:02→23:17)
[2019-05-16] MEDS: ALBUTEROL FS 2.5 MG/3 ML VIAL.NEB NEB SCH ×4 (01:30→19:51)
[2019-05-16] MEDS: GABAPENTIN 250 MG/5 ML SOLUTION GT SCH ×3 (05:00→20:12)
[2019-05-16] MEDS: OMEPRAZOLE 20 MG CAPSULE.DR GT SCH (06:01)
[2019-05-16] MEDS: HYDROGEN PEROXIDE 480 ML BOTTLE TP SCH ×2 (08:37→19:52)
[2019-05-16] MEDS: FERROUS SULFATE UDC 300 MG/5 ML UDC GT SCH ×2 (09:17→17:22)
[2019-05-16] MEDS: SIMETHICONE SUSP 40 MG/0.6 ML BOTTLE GT SCH ×2 (09:17→20:12)
[2019-05-16] MEDS: ACIDOPHILUS/BULGARICUS 1 EACH TAB.CHEW GT SCH ×2 (09:17→17:22)
[2019-05-16] MEDS: LEVETIRACETAM SOL (5 ML) 100 MG/ML UDC GT SCH ×2 (09:17→20:12)
[2019-05-16] MEDS: MULTIVIT W/MINERALS 1 TAB TABLET GT SCH (09:17)
[2019-05-16] MEDS: CALCIUM CARBONATE 500 MG TAB.CHEW GT SCH ×2 (09:17→17:22)
[2019-05-16] MEDS: TRILEPTAL GT SCH ×2 (09:17→20:12)
[2019-05-16] MEDS: SENNOSIDES 8.6 MG TABLET GT SCH ×2 (09:17→20:12)
[2019-05-16] MEDS: DOCUSATE SODIUM LIQ 100 MG/10 ML UDC GT SCH (09:17)
[2019-05-16] MEDS: VITAMINS A AND D 56.7 GM TUBE TP SCH ×2 (09:18→20:12)
[2019-05-16] MEDS: Z GUARD REMEDY 4 OZ OINT TP SCH ×2 (09:18→20:12)
[2019-05-16 11:30] VITALS: BP 134/69
[2019-05-16] MEDS: GLUCERNA 1.2 1,000 ML BOTTLE GT PRN (13:09)
[2019-05-16] MEDS: POVIDONE-IODINE OINT 28.4 GM TUBE TP SCH (20:12)
[2019-05-16] MEDS: ASCORBIC ACID 500 MG TABLET GT SCH (20:12)
[2019-05-16 21:19] VITALS: BP 130/73
[2019-05-16] MEDS: INSULIN GLARGINE, 100 UNIT/ML CARTRIDGE SQ SCH (21:57)
[2019-05-17] MEDS: ALBUTEROL FS 2.5 MG/3 ML VIAL.NEB NEB SCH ×4 (01:47→19:31)
[2019-05-17] MEDS: GABAPENTIN 250 MG/5 ML SOLUTION GT SCH ×3 (05:01→20:12)
[2019-05-17] MEDS: METOCLOPRAMIDE HCL 10 MG TABLET GT SCH ×3 (05:01→18:03)
[2019-05-17] MEDS: OMEPRAZOLE 20 MG CAPSULE.DR GT SCH (05:01)
[2019-05-17] MEDS: BLOOD SUGAR DIAGNOSTIC 1 EACH STRIP IN SCH ×3 (05:34→18:03)
[2019-05-17] MEDS: INSULIN REGULAR, HUMAN 100 UNIT/ML 3 ML VIAL SQ PRN ×3 (05:34→18:04)
[2019-05-17 07:39] LABS: BASOPHILS # (AUTO) 0.1 /CMM (0.0-0.2); BASOPHILS % (AUTO) 0.5 % (0.0-2.0); EOSINOPHILS % (AUTO) 5.1 % (0.0-6.0); HEMATOCRIT 21 % (33-45); HEMOGLOBIN 7.3 g/dL (11.5-14.8); LYMPHOCYTES # (AUTO) 3.4 /CMM (0.8-4.8); MEAN CORPUSCULAR HGB CONC 34 g/dl (31.0-36.0); MEAN CORPUSCULAR VOLUME 100 fL (82-100); MONOCYTES # (AUTO) 1.1 /CMM (0.1-1.30); MONOCYTES % (AUTO) 9.2 % (2.0-12.0); NEUTROPHILS # (AUTO) 6.9 /CMM (1.8-8.9); NEUTROPHILS % (AUTO) 57.2 % (43.0-81.0); PLATELET COUNT (AUTO) 312 /CMM (150-450); RED BLOOD CELL COUNT(AUTO) 2.14 MIL/uL (4.0-5.2)
[2019-05-17 07:52] VITALS: BP 122/60
[2019-05-17 07:56] LABS: ALBUMIN 2.6 g/dL (3.4-5.0); BILIRUBIN,TOTAL 0.2 mg/dL (0.2-1.0); CALCIUM, SERUM 10.3 mg/dL (8.5-10.1); CREATININE 2.6 mg/dL (0.6-1.3); MAGNESIUM 2.4 mg/dL (1.8-2.4); PHOSPHORUS 4.5 mg/dL (2.5-4.9); POTASSIUM 3.6 mmol/L (3.5-5.1); TOTAL PROTEIN, SERUM 8.9 g/dL (6.4-8.2)
[2019-05-17] MEDS: HYDROGEN PEROXIDE 480 ML BOTTLE TP SCH ×2 (09:14→21:00)
[2019-05-17] MEDS: SENNOSIDES 8.6 MG TABLET GT SCH ×2 (09:18→20:16)
[2019-05-17] MEDS: SIMETHICONE SUSP 40 MG/0.6 ML BOTTLE GT SCH ×2 (09:18→20:12)
[2019-05-17] MEDS: ACIDOPHILUS/BULGARICUS 1 EACH TAB.CHEW GT SCH ×2 (09:18→16:49)
[2019-05-17] MEDS: LEVETIRACETAM SOL (5 ML) 100 MG/ML UDC GT SCH ×2 (09:18→20:12)
[2019-05-17] MEDS: FERROUS SULFATE UDC 300 MG/5 ML UDC GT SCH ×2 (09:18→16:49)
[2019-05-17] MEDS: DOCUSATE SODIUM LIQ 100 MG/10 ML UDC GT SCH (09:18)
[2019-05-17] MEDS: CALCIUM CARBONATE 500 MG TAB.CHEW GT SCH ×2 (09:18→16:49)
[2019-05-17] MEDS: TRILEPTAL GT SCH ×2 (09:18→20:13)
[2019-05-17] MEDS: MULTIVIT W/MINERALS 1 TAB TABLET GT SCH (09:18)
[2019-05-17] MEDS: Z GUARD REMEDY 4 OZ OINT TP SCH ×2 (09:20→20:16)
[2019-05-17] MEDS: VITAMINS A AND D 56.7 GM TUBE TP SCH ×2 (09:21→20:16)
[2019-05-17] MEDS: GLUCERNA 1.2 1,000 ML BOTTLE GT PRN (09:23)
--- NOTE | 2019-05-17 10:24 | NUR ---
RT NOTE: REC'D TRACH PT ON [facility] VENT ON NOTED SETTINGS PER MD ORDERS. TRACH IS PATENT AND SECURED. TRACH CARE DONE. ADMINISTRATIVE PROGRAM SPECIALIST DONE. SX DONE PRN. VENT PLUGGED INTO RED OUTLET. ALARMS ON AND AUDIBLE. NEVA DELGADO @ BEDSIDE. NO RESP DISTRESS NOTED AT THIS TIME. WILL CONT TO MONITOR PT. Addendum: 05/17/19 at 1024 by MARCO FRANCOIS RT Amended: Links added.
--- NOTE | 2019-05-17 13:57 | NUR ---
Relayed lab results to Dr Luis.
[2019-05-17 20:10] VITALS: BP 121/76
[2019-05-17] MEDS: ASCORBIC ACID 500 MG TABLET GT SCH (20:16)
[2019-05-17] MEDS: INSULIN GLARGINE, 100 UNIT/ML CARTRIDGE SQ SCH (22:11)
[2019-05-18] MEDS: BLOOD SUGAR DIAGNOSTIC 1 EACH STRIP IN SCH ×5 (00:19→23:14)
[2019-05-18] MEDS: INSULIN REGULAR, HUMAN 100 UNIT/ML 3 ML VIAL SQ PRN ×5 (00:19→23:14)
[2019-05-18] MEDS: METOCLOPRAMIDE HCL 10 MG TABLET GT SCH ×5 (00:19→23:14)
[2019-05-18] MEDS: ALBUTEROL FS 2.5 MG/3 ML VIAL.NEB NEB SCH ×4 (01:47→19:29)
[2019-05-18] MEDS: GLUCERNA 1.2 1,000 ML BOTTLE GT PRN (03:57)
[2019-05-18] MEDS: GABAPENTIN 250 MG/5 ML SOLUTION GT SCH ×3 (05:05→20:29)
[2019-05-18] MEDS: OMEPRAZOLE 20 MG CAPSULE.DR GT SCH (05:05)
[2019-05-18 07:49] VITALS: BP 112/75
[2019-05-18] MEDS: SIMETHICONE SUSP 40 MG/0.6 ML BOTTLE GT SCH ×2 (09:00→20:29)
[2019-05-18] MEDS: Z GUARD REMEDY 4 OZ OINT TP SCH ×2 (09:00→20:31)
[2019-05-18] MEDS: ACIDOPHILUS/BULGARICUS 1 EACH TAB.CHEW GT SCH ×2 (09:00→17:26)
[2019-05-18] MEDS: TRILEPTAL GT SCH ×2 (09:00→20:29)
[2019-05-18] MEDS: VITAMINS A AND D 56.7 GM TUBE TP SCH ×2 (09:00→20:31)
[2019-05-18] MEDS: HYDROGEN PEROXIDE 480 ML BOTTLE TP SCH ×2 (09:00→19:29)
[2019-05-18] MEDS: FERROUS SULFATE UDC 300 MG/5 ML UDC GT SCH ×2 (09:00→17:26)
[2019-05-18] MEDS: SENNOSIDES 8.6 MG TABLET GT SCH ×2 (09:00→20:30)
[2019-05-18] MEDS: DOCUSATE SODIUM LIQ 100 MG/10 ML UDC GT SCH (09:00)
[2019-05-18] MEDS: LEVETIRACETAM SOL (5 ML) 100 MG/ML UDC GT SCH ×2 (09:00→20:29)
[2019-05-18] MEDS: MULTIVIT W/MINERALS 1 TAB TABLET GT SCH (09:00)
[2019-05-18] MEDS: CALCIUM CARBONATE 500 MG TAB.CHEW GT SCH ×2 (09:00→17:26)
--- NOTE | 2019-05-18 15:30 | NUR ---
Seen and examined by Anna Vargas NP no new order given.
--- NOTE | 2019-05-18 19:29 | NUR ---
RT NOTE: RECEIVED TRACH PT ON [facility] VENT ON NOTED SETTINGS PER MD ORDERS. TRACH IS PATENT AND SECURED. TRACH CARE DONE. ICU MANAGER DONE. Q6 BREATHING TX GIVEN WITH NO ADVERSE REACTION NOTED. SX DONE PRN. VENT PLUGGED INTO RED OUTLET. ALARMS ON AND AUDIBLE. KATHARINEU BAG @ BEDSIDE. NO RESP DISTRESS AT THIS TIME. WILL CONT TO MONITOR PT. Addendum: 05/19/19 at 0214 by QIANA MARY RT Amended: Links added.
[2019-05-18 20:25] VITALS: BP 121/67
[2019-05-18] MEDS: ASCORBIC ACID 500 MG TABLET GT SCH (20:30)
[2019-05-18] MEDS: INSULIN GLARGINE, 100 UNIT/ML CARTRIDGE SQ SCH (22:16)
[2019-05-19] MEDS: GLUCERNA 1.2 1,000 ML BOTTLE GT PRN ×3 (00:36→23:31)
[2019-05-19] MEDS: ALBUTEROL FS 2.5 MG/3 ML VIAL.NEB NEB SCH ×4 (01:02→19:23)
[2019-05-19] MEDS: GABAPENTIN 250 MG/5 ML SOLUTION GT SCH ×3 (05:08→20:04)
[2019-05-19] MEDS: METOCLOPRAMIDE HCL 10 MG TABLET GT SCH ×4 (05:08→23:31)
[2019-05-19] MEDS: OMEPRAZOLE 20 MG CAPSULE.DR GT SCH (05:08)
[2019-05-19] MEDS: BLOOD SUGAR DIAGNOSTIC 1 EACH STRIP IN SCH ×4 (06:02→23:31)
[2019-05-19] MEDS: INSULIN REGULAR, HUMAN 100 UNIT/ML 3 ML VIAL SQ PRN ×3 (06:03→23:31)
[2019-05-19 07:38] VITALS: BP 110/55
[2019-05-19] MEDS: HYDROGEN PEROXIDE 480 ML BOTTLE TP SCH ×2 (09:00→19:24)
[2019-05-19] MEDS: SENNOSIDES 8.6 MG TABLET GT SCH ×2 (09:21→20:04)
[2019-05-19] MEDS: MULTIVIT W/MINERALS 1 TAB TABLET GT SCH (09:21)
[2019-05-19] MEDS: VITAMINS A AND D 56.7 GM TUBE TP SCH ×2 (09:21→20:04)
[2019-05-19] MEDS: CALCIUM CARBONATE 500 MG TAB.CHEW GT SCH ×2 (09:21→17:59)
[2019-05-19] MEDS: LEVETIRACETAM SOL (5 ML) 100 MG/ML UDC GT SCH ×2 (09:21→20:01)
[2019-05-19] MEDS: DOCUSATE SODIUM LIQ 100 MG/10 ML UDC GT SCH (09:21)
[2019-05-19] MEDS: ACIDOPHILUS/BULGARICUS 1 EACH TAB.CHEW GT SCH ×2 (09:21→17:59)
[2019-05-19] MEDS: SIMETHICONE SUSP 40 MG/0.6 ML BOTTLE GT SCH ×2 (09:21→20:01)
[2019-05-19] MEDS: FERROUS SULFATE UDC 300 MG/5 ML UDC GT SCH ×2 (09:21→17:59)
[2019-05-19] MEDS: Z GUARD REMEDY 4 OZ OINT TP SCH ×2 (09:21→20:04)
[2019-05-19] MEDS: TRILEPTAL GT SCH ×2 (09:21→20:04)
--- NOTE | 2019-05-19 16:54 | NUR ---
RT NOTE: RECEIVED TRACH PT ON ORDERED NOTED VENT SETTINGS. NO RESPIRATORY DISTRESS NOTED. TRACH CHECKED SECURE AND PATENT. SXD AND LAVAGE PT Q ROUND AND NEEDED. TXS GIVEN ORDERED WITH NO ADVERSE REACTIONS NOTED. TRACH CARE DONE. SPARE TRACH AND AMBU BAG @ BEDSIDE. ALARMS CHECKED AND AUDIBLE. VENT PLUGGED INTO RED OUTLET.
--- NOTE | 2019-05-19 19:24 | NUR ---
Seen by Dr Luis. Pt's nephrostomy still draining urine with blood. Dr Luis ordered CBC in AM.
--- NOTE | 2019-05-19 19:30 | NUR ---
Seen by NAN Vargas no new orders.
[2019-05-19 20:00] VITALS: BP 128/71
[2019-05-19] MEDS: POVIDONE-IODINE OINT 28.4 GM TUBE TP SCH (20:04)
[2019-05-19] MEDS: ASCORBIC ACID 500 MG TABLET GT SCH (20:04)
[2019-05-19] MEDS: INSULIN GLARGINE, 100 UNIT/ML CARTRIDGE SQ SCH (21:05)
[2019-05-20] MEDS: ALBUTEROL FS 2.5 MG/3 ML VIAL.NEB NEB SCH ×4 (01:33→19:29)
[2019-05-20] MEDS: METOCLOPRAMIDE HCL 10 MG TABLET GT SCH ×4 (05:05→23:38)
[2019-05-20] MEDS: GABAPENTIN 250 MG/5 ML SOLUTION GT SCH ×3 (05:05→21:14)
[2019-05-20] MEDS: OMEPRAZOLE 20 MG CAPSULE.DR GT SCH (05:05)
[2019-05-20] MEDS: BLOOD SUGAR DIAGNOSTIC 1 EACH STRIP IN SCH ×4 (05:20→23:38)
[2019-05-20] MEDS: INSULIN REGULAR, HUMAN 100 UNIT/ML 3 ML VIAL SQ PRN ×4 (05:21→23:39)
[2019-05-20 07:48] VITALS: BP 103/48
[2019-05-20] MEDS: HYDROGEN PEROXIDE 480 ML BOTTLE TP SCH ×2 (07:48→21:06)
[2019-05-20 07:52] LABS: BASOPHILS # (AUTO) 0.1 /CMM (0.0-0.2); BASOPHILS % (AUTO) 0.6 % (0.0-2.0); EOSINOPHILS % (AUTO) 4.7 % (0.0-6.0); HEMATOCRIT 26 % (33-45); HEMOGLOBIN 9.1 g/dL (11.5-14.8); LYMPHOCYTES # (AUTO) 2.9 /CMM (0.8-4.8); LYMPHOCYTES % (AUTO) 23.8 % (20.0-44.0); MEAN CORPUSCULAR HGB CONC 34 g/dl (31.0-36.0); MEAN CORPUSCULAR VOLUME 100 fL (82-100); MONOCYTES # (AUTO) 1.1 /CMM (0.1-1.30); MONOCYTES % (AUTO) 9.1 % (2.0-12.0); NEUTROPHILS # (AUTO) 7.6 /CMM (1.8-8.9); NEUTROPHILS % (AUTO) 61.8 % (43.0-81.0); PLATELET COUNT (AUTO) 347 /CMM (150-450); RED BLOOD CELL COUNT(AUTO) 2.63 MIL/uL (4.0-5.2); WHITE BLOOD COUNT (AUTO) 12.3 K/uL (4.3-11.0)
[2019-05-20] MEDS: SENNOSIDES 8.6 MG TABLET GT SCH ×2 (09:00→21:14)
[2019-05-20] MEDS: CALCIUM CARBONATE 500 MG TAB.CHEW GT SCH ×2 (09:00→16:47)
[2019-05-20] MEDS: SIMETHICONE SUSP 40 MG/0.6 ML BOTTLE GT SCH ×2 (09:00→21:14)
[2019-05-20] MEDS: Z GUARD REMEDY 4 OZ OINT TP SCH ×2 (09:00→21:14)
[2019-05-20] MEDS: LEVETIRACETAM SOL (5 ML) 100 MG/ML UDC GT SCH ×2 (09:00→21:14)
[2019-05-20] MEDS: VITAMINS A AND D 56.7 GM TUBE TP SCH ×2 (09:00→21:14)
[2019-05-20] MEDS: MULTIVIT W/MINERALS 1 TAB TABLET GT SCH (09:00)
[2019-05-20] MEDS: TRILEPTAL GT SCH ×2 (09:00→21:14)
[2019-05-20] MEDS: ACIDOPHILUS/BULGARICUS 1 EACH TAB.CHEW GT SCH ×2 (09:00→16:47)
[2019-05-20] MEDS: FERROUS SULFATE UDC 300 MG/5 ML UDC GT SCH ×2 (09:00→16:47)
[2019-05-20] MEDS: DOCUSATE SODIUM LIQ 100 MG/10 ML UDC GT SCH (09:00)
--- NOTE | 2019-05-20 11:14 | NUR ---
Reported CBC result to Dr. Luis, NNO given.
--- NOTE | 2019-05-20 11:38 | NUR ---
Family Invitation to Holiday Lunch-In and IDT: Clinical Data Abstractor contacted the patients responsible green party/Sister, Beckie Chu [phone] to invite her to attend the Interdisciplinary Plan of Care Conference taking place 05/27/19 from 12:30pm-1:30pm and the Family Holiday Lunch-In taking place 05/26/19 from 11:30pm-1:00pm. Per Beckie, she will not be able to attend the lunch-in and will try to make it to the IDT meeting. Noted.
--- NOTE | 2019-05-20 16:39 | NUR ---
RT NOTE PATIENT RECEIVED ON TRACH WITH MECHANICAL VENTILATOR WITH NOTED SETTINGS. TRACH IS PATENT AND SECURED. SPARE TRACH AND BVM IS AT BEDSIDE. VENTILATOR ALARMS ARE SET AND AUDIBLE AND PLUGGED TO RED OUTLET. PATIENT HAS EQUAL CHEST RISE WITH COARSE BILATERAL BREATH SOUNDS. SUCTION SMALL TO MODERATE THICK GREEN AND WHITE SECRETIONS TROUGH OUT THE DAY. NO SOB NOTE. Addendum: 05/20/19 at 1644 by DAVE HICKMAN RT Amended: Links added.
[2019-05-20] MEDS: GLUCERNA 1.2 1,000 ML BOTTLE GT PRN (16:47)
[2019-05-20 20:46] VITALS: BP 116/79
[2019-05-20] MEDS: ASCORBIC ACID 500 MG TABLET GT SCH (21:14)
[2019-05-20] MEDS: INSULIN GLARGINE, 100 UNIT/ML CARTRIDGE SQ SCH (21:15)
[2019-05-21] MEDS: ALBUTEROL FS 2.5 MG/3 ML VIAL.NEB NEB SCH ×4 (01:40→19:25)
[2019-05-21] MEDS: METOCLOPRAMIDE HCL 10 MG TABLET GT SCH ×4 (05:27→23:08)
[2019-05-21] MEDS: INSULIN REGULAR, HUMAN 100 UNIT/ML 3 ML VIAL SQ PRN ×4 (05:27→23:08)
[2019-05-21] MEDS: BLOOD SUGAR DIAGNOSTIC 1 EACH STRIP IN SCH ×4 (05:27→23:08)
[2019-05-21] MEDS: OMEPRAZOLE 20 MG CAPSULE.DR GT SCH (05:27)
[2019-05-21] MEDS: GABAPENTIN 250 MG/5 ML SOLUTION GT SCH ×3 (05:27→20:01)
[2019-05-21] MEDS: HYDROGEN PEROXIDE 480 ML BOTTLE TP SCH ×2 (07:14→21:01)
[2019-05-21 07:59] VITALS: BP 111/63
[2019-05-21] MEDS: DOCUSATE SODIUM LIQ 100 MG/10 ML UDC GT SCH (09:58)
[2019-05-21] MEDS: CALCIUM CARBONATE 500 MG TAB.CHEW GT SCH ×2 (09:58→16:49)
[2019-05-21] MEDS: Z GUARD REMEDY 4 OZ OINT TP SCH ×2 (09:58→20:02)
[2019-05-21] MEDS: TRILEPTAL GT SCH ×2 (09:58→20:02)
[2019-05-21] MEDS: ACIDOPHILUS/BULGARICUS 1 EACH TAB.CHEW GT SCH ×2 (09:58→16:49)
[2019-05-21] MEDS: VITAMINS A AND D 56.7 GM TUBE TP SCH ×2 (09:58→20:02)
[2019-05-21] MEDS: SENNOSIDES 8.6 MG TABLET GT SCH ×2 (09:58→20:02)
[2019-05-21] MEDS: FERROUS SULFATE UDC 300 MG/5 ML UDC GT SCH ×2 (09:58→16:49)
[2019-05-21] MEDS: LEVETIRACETAM SOL (5 ML) 100 MG/ML UDC GT SCH ×2 (09:58→20:01)
[2019-05-21] MEDS: MULTIVIT W/MINERALS 1 TAB TABLET GT SCH (09:58)
[2019-05-21] MEDS: SIMETHICONE SUSP 40 MG/0.6 ML BOTTLE GT SCH ×2 (09:58→20:01)
[2019-05-21] MEDS: GLUCERNA 1.2 1,000 ML BOTTLE GT PRN (11:58)
--- NOTE | 2019-05-21 16:41 | NUR ---
RT NOTE PATIENT RECEIVED ON TRACH WITH MECHANICAL VENTILATOR. TRACH IS PATENT AND SECURED. VENTILATOR IS PLUGGED TO RED OUTLET. ALARMS ARE SET AND AUDIBLE. SPARE TRACH AND BVM IS AT BEDSIDE. PATIENT HAS EQUAL CHEST RISE WITH COARSE BILATERAL BREATH SOUNDS. SUCTION MODERATE AMOUNT OF THIN GREEN SECRETIONS TROUGH OUT THE DAY. NO SOB NOTED. Addendum: 05/21/19 at 1652 by DAVE HICKMAN RT Amended: Links added.
[2019-05-21] MEDS: ASCORBIC ACID 500 MG TABLET GT SCH (20:02)
[2019-05-21 20:53] VITALS: BP 109/66
[2019-05-21] MEDS: INSULIN GLARGINE, 100 UNIT/ML CARTRIDGE SQ SCH (21:11)
[2019-05-22] MEDS: ALBUTEROL FS 2.5 MG/3 ML VIAL.NEB NEB SCH ×4 (01:37→19:40)
[2019-05-22] MEDS: OMEPRAZOLE 20 MG CAPSULE.DR GT SCH (05:03)
[2019-05-22] MEDS: METOCLOPRAMIDE HCL 10 MG TABLET GT SCH ×4 (05:03→23:44)
[2019-05-22] MEDS: GABAPENTIN 250 MG/5 ML SOLUTION GT SCH ×3 (05:03→20:02)
[2019-05-22] MEDS: BLOOD SUGAR DIAGNOSTIC 1 EACH STRIP IN SCH ×4 (05:29→23:44)
[2019-05-22] MEDS: INSULIN REGULAR, HUMAN 100 UNIT/ML 3 ML VIAL SQ PRN ×2 (05:29→23:45)
[2019-05-22 07:38] VITALS: BP 104/52
[2019-05-22] MEDS: HYDROGEN PEROXIDE 480 ML BOTTLE TP SCH ×2 (08:12→21:00)
[2019-05-22] MEDS: FERROUS SULFATE UDC 300 MG/5 ML UDC GT SCH ×2 (09:00→16:06)
[2019-05-22] MEDS: DOCUSATE SODIUM LIQ 100 MG/10 ML UDC GT SCH (09:00)
[2019-05-22] MEDS: VITAMINS A AND D 56.7 GM TUBE TP SCH ×2 (09:00→20:04)
[2019-05-22] MEDS: SIMETHICONE SUSP 40 MG/0.6 ML BOTTLE GT SCH ×2 (09:00→20:02)
[2019-05-22] MEDS: CALCIUM CARBONATE 500 MG TAB.CHEW GT SCH ×2 (09:00→16:06)
[2019-05-22] MEDS: ACIDOPHILUS/BULGARICUS 1 EACH TAB.CHEW GT SCH ×2 (09:00→16:06)
[2019-05-22] MEDS: Z GUARD REMEDY 4 OZ OINT TP SCH ×2 (09:00→20:03)
[2019-05-22] MEDS: SENNOSIDES 8.6 MG TABLET GT SCH ×2 (09:00→20:03)
[2019-05-22] MEDS: MULTIVIT W/MINERALS 1 TAB TABLET GT SCH (09:00)
[2019-05-22] MEDS: LEVETIRACETAM SOL (5 ML) 100 MG/ML UDC GT SCH ×2 (09:00→20:01)
[2019-05-22] MEDS: TRILEPTAL GT SCH ×2 (09:00→20:03)
[2019-05-22] MEDS: GLUCERNA 1.2 1,000 ML BOTTLE GT PRN (11:05)
--- NOTE | 2019-05-22 19:33 | NUR ---
RT PT RECEIVED ON VENT WITH CURRENT SETTINGS. TRACHED WITH SHILEY 8 XLT. NO RESPIRATORY DISTRESS. AMBU BAG AT HEAD OF BED. SPARE TRACH AT BED SIDE. VENT PLUGGED IN TO RED OUTLET. ALARMS ON AND AUDIBLE. HOB AT 30 DEGREES. WILL CONTINUE TO MONITOR. Addendum: 05/23/19 at 0007 by BELKIS BETHEA RT Amended: Links added.
[2019-05-22] MEDS: ASCORBIC ACID 500 MG TABLET GT SCH (20:03)
[2019-05-22] MEDS: POVIDONE-IODINE OINT 28.4 GM TUBE TP SCH (20:03)
[2019-05-22 20:50] VITALS: BP 130/72
[2019-05-22] MEDS: INSULIN GLARGINE, 100 UNIT/ML CARTRIDGE SQ SCH (21:37)
[2019-05-23] MEDS: ALBUTEROL FS 2.5 MG/3 ML VIAL.NEB NEB SCH ×4 (02:01→19:59)
[2019-05-23] MEDS: GLUCERNA 1.2 1,000 ML BOTTLE GT PRN ×2 (03:46→18:10)
[2019-05-23] MEDS: GABAPENTIN 250 MG/5 ML SOLUTION GT SCH ×3 (05:10→20:05)
[2019-05-23] MEDS: METOCLOPRAMIDE HCL 10 MG TABLET GT SCH ×3 (05:11→17:51)
[2019-05-23] MEDS: OMEPRAZOLE 20 MG CAPSULE.DR GT SCH (05:11)
[2019-05-23] MEDS: BLOOD SUGAR DIAGNOSTIC 1 EACH STRIP IN SCH ×3 (05:11→17:51)
[2019-05-23] MEDS: INSULIN REGULAR, HUMAN 100 UNIT/ML 3 ML VIAL SQ PRN ×3 (05:13→17:52)
[2019-05-23 07:46] VITALS: BP 112/68
[2019-05-23] MEDS: HYDROGEN PEROXIDE 480 ML BOTTLE TP SCH ×2 (09:00→21:00)
[2019-05-23] MEDS: MULTIVIT W/MINERALS 1 TAB TABLET GT SCH (09:00)
[2019-05-23] MEDS: SIMETHICONE SUSP 40 MG/0.6 ML BOTTLE GT SCH ×2 (09:02→20:04)
[2019-05-23] MEDS: DOCUSATE SODIUM LIQ 100 MG/10 ML UDC GT SCH (09:02)
[2019-05-23] MEDS: TRILEPTAL GT SCH ×2 (09:02→20:05)
[2019-05-23] MEDS: SENNOSIDES 8.6 MG TABLET GT SCH ×2 (09:02→20:06)
[2019-05-23] MEDS: FERROUS SULFATE UDC 300 MG/5 ML UDC GT SCH ×2 (09:02→16:35)
[2019-05-23] MEDS: LEVETIRACETAM SOL (5 ML) 100 MG/ML UDC GT SCH ×2 (09:02→20:04)
[2019-05-23] MEDS: CALCIUM CARBONATE 500 MG TAB.CHEW GT SCH ×2 (09:02→16:35)
[2019-05-23] MEDS: ACIDOPHILUS/BULGARICUS 1 EACH TAB.CHEW GT SCH ×2 (09:02→16:35)
[2019-05-23] MEDS: VITAMINS A AND D 56.7 GM TUBE TP SCH ×2 (09:03→20:06)
[2019-05-23] MEDS: Z GUARD REMEDY 4 OZ OINT TP SCH ×2 (09:03→20:06)
[2019-05-23 11:10] LABS: BASOPHILS # (AUTO) 0.1 /CMM (0.0-0.2); BASOPHILS % (AUTO) 0.7 % (0.0-2.0); EOSINOPHILS % (AUTO) 5.8 % (0.0-6.0); HEMATOCRIT 24 % (33-45); HEMOGLOBIN 8.2 g/dL (11.5-14.8); LYMPHOCYTES # (AUTO) 2.6 /CMM (0.8-4.8); LYMPHOCYTES % (AUTO) 19.3 % (20.0-44.0); MEAN CORPUSCULAR HGB CONC 34 g/dl (31.0-36.0); MEAN CORPUSCULAR VOLUME 100 fL (82-100); MONOCYTES # (AUTO) 1.2 /CMM (0.1-1.30); NEUTROPHILS # (AUTO) 8.6 /CMM (1.8-8.9); NEUTROPHILS % (AUTO) 65.2 % (43.0-81.0); PLATELET COUNT (AUTO) 371 /CMM (150-450); RED BLOOD CELL COUNT(AUTO) 2.44 MIL/uL (4.0-5.2); WHITE BLOOD COUNT (AUTO) 13.3 K/uL (4.3-11.0)
[2019-05-23 11:29] LABS: CALCIUM, SERUM 10.3 mg/dL (8.5-10.1); CREATININE 2.4 mg/dL (0.6-1.3); MAGNESIUM 2.5 mg/dL (1.8-2.4); PHOSPHORUS 4.7 mg/dL (2.5-4.9)
--- NOTE | 2019-05-23 13:30 | NUR ---
Seen by NAN Vargas. Relayed lab results to her. She ordered to repeat CBC in AM.
[2019-05-23 13:35] LABS: BAND % (MANUAL) 3 % (0.0-5.0); EOSINOPHILS % (MANUAL) 2 % (0-4); LYMPHOCYTES % (MANUAL) 22 % (16-48); METAMYELOCYTES % 1 % (0-0); MONOCYTES % (MANUAL) 11 % (0-11.0); MYELOCYTES % 4 % (0-0); NEUTROPHILS % (MANUAL) 57 (42-76)
--- NOTE | 2019-05-23 15:59 | NUR ---
STEPHEN completed the SS portion of 3rd Quarter MDS. The patients sister, Beckie Chu [phone] is the patients conservator and is very involved and supportive. 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 The patients last podiatry visit by was on 05/20/19. The patients last dental apt. with Dr. Elliott was on 02/04/19. The patient s last optometry apt. by Dr. Escalante was on 06/18/2018 and will be scheduled June 2019 for annual exam.
[2019-05-23] MEDS: ASCORBIC ACID 500 MG TABLET GT SCH (20:06)
[2019-05-23 20:39] VITALS: BP 121/63
[2019-05-23] MEDS: INSULIN GLARGINE, 100 UNIT/ML CARTRIDGE SQ SCH (21:37)
[2019-05-24] MEDS: INSULIN REGULAR, HUMAN 100 UNIT/ML 3 ML VIAL SQ PRN ×2 (00:11→23:18)
[2019-05-24] MEDS: BLOOD SUGAR DIAGNOSTIC 1 EACH STRIP IN SCH ×4 (00:11→23:18)
[2019-05-24] MEDS: METOCLOPRAMIDE HCL 10 MG TABLET GT SCH ×4 (00:11→23:18)
[2019-05-24] MEDS: ALBUTEROL FS 2.5 MG/3 ML VIAL.NEB NEB SCH ×4 (01:14→19:41)
[2019-05-24] MEDS: Z GUARD REMEDY 4 OZ OINT TP SCH ×2 (08:29→20:11)
[2019-05-24] MEDS: SENNOSIDES 8.6 MG TABLET GT SCH ×2 (08:29→20:10)
[2019-05-24] MEDS: MULTIVIT W/MINERALS 1 TAB TABLET GT SCH (08:29)
[2019-05-24] MEDS: FERROUS SULFATE UDC 300 MG/5 ML UDC GT SCH ×2 (08:29→16:13)
[2019-05-24] MEDS: LEVETIRACETAM SOL (5 ML) 100 MG/ML UDC GT SCH ×2 (08:29→20:10)
[2019-05-24] MEDS: CALCIUM CARBONATE 500 MG TAB.CHEW GT SCH ×2 (08:29→16:13)
[2019-05-24] MEDS: TRILEPTAL GT SCH ×2 (08:29→20:10)
[2019-05-24] MEDS: SIMETHICONE SUSP 40 MG/0.6 ML BOTTLE GT SCH ×2 (08:29→20:10)
[2019-05-24] MEDS: DOCUSATE SODIUM LIQ 100 MG/10 ML UDC GT SCH (08:29)
[2019-05-24] MEDS: ACIDOPHILUS/BULGARICUS 1 EACH TAB.CHEW GT SCH ×2 (08:29→16:13)
[2019-05-24] MEDS: VITAMINS A AND D 56.7 GM TUBE TP SCH ×2 (08:29→20:11)
[2019-05-24 08:55] LABS: BASOPHILS # (AUTO) 0.1 /CMM (0.0-0.2); BASOPHILS % (AUTO) 0.4 % (0.0-2.0); EOSINOPHILS % (AUTO) 4.4 % (0.0-6.0); HEMATOCRIT 23 % (33-45); HEMOGLOBIN 7.6 g/dL (11.5-14.8); LYMPHOCYTES # (AUTO) 3.2 /CMM (0.8-4.8); LYMPHOCYTES % (AUTO) 22.4 % (20.0-44.0); MEAN CORPUSCULAR HGB CONC 34 g/dl (31.0-36.0); MEAN CORPUSCULAR VOLUME 100 fL (82-100); MONOCYTES # (AUTO) 0.9 /CMM (0.1-1.30); MONOCYTES % (AUTO) 6.5 % (2.0-12.0); NEUTROPHILS # (AUTO) 9.6 /CMM (1.8-8.9); NEUTROPHILS % (AUTO) 66.3 % (43.0-81.0); PLATELET COUNT (AUTO) 368 /CMM (150-450); RED BLOOD CELL COUNT(AUTO) 2.25 MIL/uL (4.0-5.2); WHITE BLOOD COUNT (AUTO) 14.4 K/uL (4.3-11.0)
[2019-05-24] MEDS: HYDROGEN PEROXIDE 480 ML BOTTLE TP SCH ×2 (09:00→21:00)
[2019-05-24] MEDS: GABAPENTIN 250 MG/5 ML SOLUTION GT SCH ×2 (12:22→20:10)
[2019-05-24 12:26] VITALS: BP 118/70
--- NOTE | 2019-05-24 13:00 | NUR ---
Midline found out. Catheter tip intact. No bleeding noted. Notified Dr Luis and pt's sister.
--- NOTE | 2019-05-24 16:23 | NUR ---
Received order from NAN Loredo to reculture urine and nares for isolation clearance.
[2019-05-24] MEDS: GLUCERNA 1.2 1,000 ML BOTTLE GT PRN (17:00)
[2019-05-24] MEDS: ASCORBIC ACID 500 MG TABLET GT SCH (20:11)
[2019-05-24 20:52] VITALS: BP 124/68
[2019-05-24] MEDS: INSULIN GLARGINE, 100 UNIT/ML CARTRIDGE SQ SCH (21:47)
[2019-05-25] MEDS: ALBUTEROL FS 2.5 MG/3 ML VIAL.NEB NEB SCH ×4 (01:15→19:35)
[2019-05-25] MEDS: GABAPENTIN 250 MG/5 ML SOLUTION GT SCH ×3 (05:04→20:12)
[2019-05-25] MEDS: OMEPRAZOLE 20 MG CAPSULE.DR GT SCH (05:04)
[2019-05-25] MEDS: METOCLOPRAMIDE HCL 10 MG TABLET GT SCH ×4 (05:04→23:13)
[2019-05-25] MEDS: BLOOD SUGAR DIAGNOSTIC 1 EACH STRIP IN SCH ×4 (05:58→23:14)
[2019-05-25] MEDS: INSULIN REGULAR, HUMAN 100 UNIT/ML 3 ML VIAL SQ PRN ×3 (05:59→23:14)
[2019-05-25 07:42] VITALS: BP 128/69
[2019-05-25] MEDS: HYDROGEN PEROXIDE 480 ML BOTTLE TP SCH ×2 (09:00→19:35)
--- NOTE | 2019-05-25 09:13 | NUR ---
RT NOTE: REC'D TRACH PT ON [facility] VENT ON NOTED SETTINGS PER MD ORDERS. TRACH IS PATENT AND SECURED. TRACH CARE DONE. ENCEPHALOGRAPHER DONE. SX DONE PRN. VENT PLUGGED INTO RED OUTLET. ALARMS ON AND AUDIBLE. NEVA DELGADO @ BEDSIDE. NO RESP DISTRESS NOTED AT THIS TIME. WILL CONT TO MONITOR PT. Addendum: 05/25/19 at 0914 by MARCO FRANCOIS RT Amended: Links added.
[2019-05-25] MEDS: DOCUSATE SODIUM LIQ 100 MG/10 ML UDC GT SCH (09:38)
[2019-05-25] MEDS: FERROUS SULFATE UDC 300 MG/5 ML UDC GT SCH ×2 (09:38→17:14)
[2019-05-25] MEDS: LEVETIRACETAM SOL (5 ML) 100 MG/ML UDC GT SCH ×2 (09:38→20:12)
[2019-05-25] MEDS: ACIDOPHILUS/BULGARICUS 1 EACH TAB.CHEW GT SCH ×2 (09:39→17:14)
[2019-05-25] MEDS: SIMETHICONE SUSP 40 MG/0.6 ML BOTTLE GT SCH ×2 (09:39→20:12)
[2019-05-25] MEDS: SENNOSIDES 8.6 MG TABLET GT SCH ×2 (09:51→20:12)
[2019-05-25] MEDS: TRILEPTAL GT SCH ×2 (09:51→20:12)
[2019-05-25] MEDS: MULTIVIT W/MINERALS 1 TAB TABLET GT SCH (09:51)
[2019-05-25] MEDS: CALCIUM CARBONATE 500 MG TAB.CHEW GT SCH ×2 (09:51→17:14)
[2019-05-25] MEDS: Z GUARD REMEDY 4 OZ OINT TP SCH ×2 (09:52→20:14)
[2019-05-25] MEDS: VITAMINS A AND D 56.7 GM TUBE TP SCH ×2 (09:52→20:14)
[2019-05-25] MEDS: GLUCERNA 1.2 1,000 ML BOTTLE GT PRN (12:31)
--- NOTE | 2019-05-25 17:30 | NUR ---
Notified CORE MACHINE TENDER Gertrude Calhoun of positive nares culture for MRSA, with new order for Bactroban x 7 days. Informed resident's sister Beckie of culture result that shows MRSA of the nares which will be treated with Bactroban. She was also made aware that patient is being followed by electronic test technician Dr. Montgomery with order for lab works in AM. Appreciated the call.
--- NOTE | 2019-05-25 19:35 | NUR ---
RT NOTE: RECEIVED TRACH PT ON [facility] VENT ON NOTED SETTINGS PER MD ORDERS. TRACH IS PATENT AND SECURED. TRACH CARE DONE. DIETETIC INTERN DONE. Q6 BREATHING TX GIVEN WITH NO ADVERSE REACTION NOTED. SX DONE PRN. VENT PLUGGED INTO RED OUTLET. ALARMS ON AND AUDIBLE. KATHARINEU BAG @ BEDSIDE. NO RESP DISTRESS AT THIS TIME. WILL CONT TO MONITOR PT. Addendum: 05/25/19 at 2017 by QIANA MARY RT Amended: Links added.
[2019-05-25] MEDS: ASCORBIC ACID 500 MG TABLET GT SCH (20:12)
[2019-05-25] MEDS: MUPIROCIN OINT 2% 22 GM TUBE TP SCH (20:13)
[2019-05-25] MEDS: POVIDONE-IODINE OINT 28.4 GM TUBE TP SCH (20:14)
[2019-05-25 21:03] VITALS: BP 115/63
[2019-05-25] MEDS: INSULIN GLARGINE, 100 UNIT/ML CARTRIDGE SQ SCH (21:51)
[2019-05-26] MEDS: ALBUTEROL FS 2.5 MG/3 ML VIAL.NEB NEB SCH ×4 (01:28→19:40)
[2019-05-26] MEDS: GABAPENTIN 250 MG/5 ML SOLUTION GT SCH ×3 (05:26→21:02)
[2019-05-26] MEDS: OMEPRAZOLE 20 MG CAPSULE.DR GT SCH (05:26)
[2019-05-26] MEDS: METOCLOPRAMIDE HCL 10 MG TABLET GT SCH ×4 (05:26→23:21)
[2019-05-26] MEDS: BLOOD SUGAR DIAGNOSTIC 1 EACH STRIP IN SCH ×3 (05:58→17:58)
[2019-05-26] MEDS: INSULIN REGULAR, HUMAN 100 UNIT/ML 3 ML VIAL SQ PRN ×2 (05:58→12:50)
[2019-05-26 06:41] LABS: BASOPHILS # (AUTO) 0.1 /CMM (0.0-0.2); BASOPHILS % (AUTO) 0.6 % (0.0-2.0); EOSINOPHILS % (AUTO) 5.1 % (0.0-6.0); HEMATOCRIT 22 % (33-45); HEMOGLOBIN 7.7 g/dL (11.5-14.8); LYMPHOCYTES # (AUTO) 3.4 /CMM (0.8-4.8); LYMPHOCYTES % (AUTO) 25.6 % (20.0-44.0); MEAN CORPUSCULAR HGB CONC 35 g/dl (31.0-36.0); MEAN CORPUSCULAR VOLUME 100 fL (82-100); MONOCYTES # (AUTO) 1.3 /CMM (0.1-1.30); NEUTROPHILS # (AUTO) 7.8 /CMM (1.8-8.9); NEUTROPHILS % (AUTO) 58.7 % (43.0-81.0); PLATELET COUNT (AUTO) 367 /CMM (150-450); WHITE BLOOD COUNT (AUTO) 13.2 K/uL (4.3-11.0)
[2019-05-26 07:15] LABS: CALCIUM, SERUM 10.8 mg/dL (8.5-10.1); CREATININE 2.3 mg/dL (0.6-1.3); MAGNESIUM 2.6 mg/dL (1.8-2.4); PHOSPHORUS 4.6 mg/dL (2.5-4.9); POTASSIUM 3.6 mmol/L (3.5-5.1)
[2019-05-26 07:39] VITALS: BP 112/70
[2019-05-26] MEDS: HYDROGEN PEROXIDE 480 ML BOTTLE TP SCH ×2 (08:06→20:45)
[2019-05-26] MEDS: TRILEPTAL GT SCH ×2 (08:49→21:02)
[2019-05-26] MEDS: CALCIUM CARBONATE 500 MG TAB.CHEW GT SCH ×2 (08:49→17:58)
[2019-05-26] MEDS: ACIDOPHILUS/BULGARICUS 1 EACH TAB.CHEW GT SCH ×2 (08:49→17:58)
[2019-05-26] MEDS: SENNOSIDES 8.6 MG TABLET GT SCH ×2 (08:49→21:02)
[2019-05-26] MEDS: SIMETHICONE SUSP 40 MG/0.6 ML BOTTLE GT SCH ×2 (08:49→21:02)
[2019-05-26] MEDS: LEVETIRACETAM SOL (5 ML) 100 MG/ML UDC GT SCH ×2 (08:49→21:02)
[2019-05-26] MEDS: DOCUSATE SODIUM LIQ 100 MG/10 ML UDC GT SCH (08:49)
[2019-05-26] MEDS: VITAMINS A AND D 56.7 GM TUBE TP SCH ×2 (08:49→21:03)
[2019-05-26] MEDS: MULTIVIT W/MINERALS 1 TAB TABLET GT SCH (08:49)
[2019-05-26] MEDS: Z GUARD REMEDY 4 OZ OINT TP SCH ×2 (08:49→21:03)
[2019-05-26] MEDS: FERROUS SULFATE UDC 300 MG/5 ML UDC GT SCH ×2 (08:49→17:58)
[2019-05-26] MEDS: MUPIROCIN OINT 2% 22 GM TUBE TP SCH ×2 (09:00→21:02)
[2019-05-26] MEDS: GLUCERNA 1.2 1,000 ML BOTTLE GT PRN (12:43)
--- NOTE | 2019-05-26 14:45 | NUR ---
Asked NAN Loredo to review pt's urine culture result. She said she will review it.
--- NOTE | 2019-05-26 15:49 | NUR ---
Seen by NAN Vargas. Relayed lab results to her. No new order.
--- NOTE | 2019-05-26 20:37 | NUR ---
RT NOTE PT RECEIVED TRACHED ON MECHANICAL VENTILATION. AMBU BAG/BACK UP TRACH @ BEDSIDE. TX GIVEN, NO ADVERSE REACTIONS NOTED. SX DONE, TRACH SECURED AND PATENT. ALARMS ON AND AUDIBLE. VENT PLUGGED TO RED OUTLET. NO SOB NOTED. Addendum: 05/26/19 at 2037 by BRIEN NEAL RT Amended: Links added.
[2019-05-26 20:41] VITALS: BP 133/86
[2019-05-26] MEDS: ASCORBIC ACID 500 MG TABLET GT SCH (21:02)
[2019-05-26] MEDS: INSULIN GLARGINE, 100 UNIT/ML CARTRIDGE SQ SCH (22:33)
[2019-05-27] MEDS: BLOOD SUGAR DIAGNOSTIC 1 EACH STRIP IN SCH ×5 (00:19→23:33)
[2019-05-27] MEDS: INSULIN REGULAR, HUMAN 100 UNIT/ML 3 ML VIAL SQ PRN ×5 (00:20→23:34)
[2019-05-27] MEDS: ALBUTEROL FS 2.5 MG/3 ML VIAL.NEB NEB SCH ×4 (01:56→19:48)
[2019-05-27] MEDS: OMEPRAZOLE 20 MG CAPSULE.DR GT SCH (05:02)
[2019-05-27] MEDS: GABAPENTIN 250 MG/5 ML SOLUTION GT SCH ×3 (05:02→21:13)
[2019-05-27] MEDS: METOCLOPRAMIDE HCL 10 MG TABLET GT SCH ×4 (05:02→23:33)
[2019-05-27] MEDS: GLUCERNA 1.2 1,000 ML BOTTLE GT PRN (05:03)
[2019-05-27 06:36] LABS: BASOPHILS # (AUTO) 0.1 /CMM (0.0-0.2); BASOPHILS % (AUTO) 0.9 % (0.0-2.0); EOSINOPHILS % (AUTO) 3.9 % (0.0-6.0); HEMATOCRIT 26 % (33-45); HEMOGLOBIN 8.9 g/dL (11.5-14.8); LYMPHOCYTES # (AUTO) 3.1 /CMM (0.8-4.8); LYMPHOCYTES % (AUTO) 27.3 % (20.0-44.0); MEAN CORPUSCULAR HGB CONC 34 g/dl (31.0-36.0); MEAN CORPUSCULAR VOLUME 100 fL (82-100); MONOCYTES # (AUTO) 1.1 /CMM (0.1-1.30); MONOCYTES % (AUTO) 9.2 % (2.0-12.0); NEUTROPHILS # (AUTO) 6.8 /CMM (1.8-8.9); NEUTROPHILS % (AUTO) 58.7 % (43.0-81.0); PLATELET COUNT (AUTO) 355 /CMM (150-450); RED BLOOD CELL COUNT(AUTO) 2.64 MIL/uL (4.0-5.2); WHITE BLOOD COUNT (AUTO) 11.5 K/uL (4.3-11.0)
[2019-05-27 06:53] LABS: CALCIUM, SERUM 10.9 mg/dL (8.5-10.1); CREATININE 2.4 mg/dL (0.6-1.3); MAGNESIUM 2.8 mg/dL (1.8-2.4); PHOSPHORUS 5.7 mg/dL (2.5-4.9); POTASSIUM 5.5 mmol/L (3.5-5.1)
[2019-05-27 07:57] VITALS: BP 133/66
[2019-05-27] MEDS: MUPIROCIN OINT 2% 22 GM TUBE TP SCH ×2 (09:00→21:14)
[2019-05-27] MEDS: VITAMINS A AND D 56.7 GM TUBE TP SCH ×2 (09:00→21:14)
[2019-05-27] MEDS: Z GUARD REMEDY 4 OZ OINT TP SCH ×2 (09:00→21:14)
[2019-05-27] MEDS: SENNOSIDES 8.6 MG TABLET GT SCH ×2 (09:00→21:13)
[2019-05-27] MEDS: SIMETHICONE SUSP 40 MG/0.6 ML BOTTLE GT SCH ×2 (09:00→21:13)
[2019-05-27] MEDS: MULTIVIT W/MINERALS 1 TAB TABLET GT SCH (09:00)
[2019-05-27] MEDS: DOCUSATE SODIUM LIQ 100 MG/10 ML UDC GT SCH (09:00)
[2019-05-27] MEDS: HYDROGEN PEROXIDE 480 ML BOTTLE TP SCH ×2 (09:00→20:25)
[2019-05-27] MEDS: ACIDOPHILUS/BULGARICUS 1 EACH TAB.CHEW GT SCH ×2 (09:00→17:00)
[2019-05-27] MEDS: LEVETIRACETAM SOL (5 ML) 100 MG/ML UDC GT SCH ×2 (09:00→21:13)
[2019-05-27] MEDS: FERROUS SULFATE UDC 300 MG/5 ML UDC GT SCH ×2 (09:00→17:00)
[2019-05-27] MEDS: CALCIUM CARBONATE 500 MG TAB.CHEW GT SCH ×2 (09:00→17:00)
[2019-05-27] MEDS: TRILEPTAL GT SCH ×2 (09:00→21:13)
--- NOTE | 2019-05-27 09:07 | NUR ---
WOUND CARE CONSULT: PT SEEN FOR RE-EVALUATION OF SACRAL/BUTTOCKS AREA. SACRAL SCARRING NOTED WITH SKIN DISCOLORATION TO BUTTOCKS. CONTINUE PRESENT SKIN PROTECTION. DISCUSSED WITH NURSING STAFF. WILL SEE PRN. TAYLOR IN AGREEMENT WITH PLAN OF CARE.
[2019-05-27] MEDS: HEPARIN SODIUM, PORCINE 5000 UNITS/1 ML VIAL SQ SCH ×2 (11:15→21:14)
--- NOTE | 2019-05-27 14:26 | NUR ---
INTERDISCIPLINARY PLAN OF CARE CONFERENCE took place today. The patients responsible constitution party/ Beckie Chu [phone] was not able to attend or participate via phone conference. Charge nurse discussed MRSA of the Nares isolation, and antibiotic treatment for UTI. Dr. Felix and Interdisciplinary team discussed the plan of care in detail. Current orders as well as treatments and medications were reviewed. Please see other disciplines IDT notes for further details.
--- NOTE | 2019-05-27 16:58 | NUR ---
Relayed final urine result to NAN Loredo for her review if she wants it to be treated. She said she will review. Resident asymptomatic and afebrile at 98.7. Dr. Luis also informed that patient's urine output from nephrostomy tube is yellow, no hematuria with order to resume Heparin. Order carried out.
--- NOTE | 2019-05-27 19:00 | NUR ---
GATE SERVICES SUPERVISOR Gertrude Calhoun reviewed lab result, she said that she will not treat patient at this time. Patient asymptomatic, aill observe for any signs of infection.
[2019-05-27 20:20] VITALS: BP 107/70
--- NOTE | 2019-05-27 20:30 | NUR ---
PT RCVD TRACH'D ON MECHANICAL VENT WITH CHARTED SETTINGS. PT APRIL TX WELL. SX DONE. PT TRACH IS PATENT AND SECURE. VENT ALARMS APPEAR TO BE FUNCTIONING PROPERLY. AMBU BAG AT BEDSIDE. VENT PLUGGED INTO RED OUTLET. NO SOB NOTED. Addendum: 05/27/19 at 2030 by MICH AVILA RT Amended: Links added.
[2019-05-27] MEDS: ASCORBIC ACID 500 MG TABLET GT SCH (21:13)
[2019-05-27] MEDS: INSULIN GLARGINE, 100 UNIT/ML CARTRIDGE SQ SCH (21:14)
[2019-05-28] MEDS: ALBUTEROL FS 2.5 MG/3 ML VIAL.NEB NEB SCH ×4 (00:45→19:28)
[2019-05-28] MEDS: GLUCERNA 1.2 1,000 ML BOTTLE GT PRN ×2 (05:36→21:12)
[2019-05-28] MEDS: GABAPENTIN 250 MG/5 ML SOLUTION GT SCH ×3 (05:36→20:39)
[2019-05-28] MEDS: OMEPRAZOLE 20 MG CAPSULE.DR GT SCH (05:36)
[2019-05-28] MEDS: METOCLOPRAMIDE HCL 10 MG TABLET GT SCH ×4 (05:36→23:34)
[2019-05-28] MEDS: BLOOD SUGAR DIAGNOSTIC 1 EACH STRIP IN SCH ×4 (05:36→23:34)
[2019-05-28] MEDS: INSULIN REGULAR, HUMAN 100 UNIT/ML 3 ML VIAL SQ PRN ×4 (05:37→23:34)
[2019-05-28] MEDS: MAGNESIUM HYDROXIDE 30 ML UDC GT PRN (05:37)
[2019-05-28] MEDS: HYDROGEN PEROXIDE 480 ML BOTTLE TP SCH ×2 (07:09→19:28)
[2019-05-28 08:37] VITALS: BP 132/56
[2019-05-28] MEDS: VITAMINS A AND D 56.7 GM TUBE TP SCH ×2 (09:00→20:40)
[2019-05-28] MEDS: MUPIROCIN OINT 2% 22 GM TUBE TP SCH ×2 (09:00→20:40)
[2019-05-28] MEDS: HEPARIN SODIUM, PORCINE 5000 UNITS/1 ML VIAL SQ SCH ×2 (09:00→20:40)
[2019-05-28] MEDS: Z GUARD REMEDY 4 OZ OINT TP SCH ×2 (09:00→20:40)
[2019-05-28] MEDS: TRILEPTAL GT SCH ×2 (09:59→20:39)
[2019-05-28] MEDS: FERROUS SULFATE UDC 300 MG/5 ML UDC GT SCH ×2 (09:59→17:09)
[2019-05-28] MEDS: SENNOSIDES 8.6 MG TABLET GT SCH ×2 (09:59→20:39)
[2019-05-28] MEDS: SIMETHICONE SUSP 40 MG/0.6 ML BOTTLE GT SCH ×2 (09:59→20:39)
[2019-05-28] MEDS: CALCIUM CARBONATE 500 MG TAB.CHEW GT SCH ×2 (09:59→17:09)
[2019-05-28] MEDS: DOCUSATE SODIUM LIQ 100 MG/10 ML UDC GT SCH (09:59)
[2019-05-28] MEDS: MULTIVIT W/MINERALS 1 TAB TABLET GT SCH (09:59)
[2019-05-28] MEDS: LEVETIRACETAM SOL (5 ML) 100 MG/ML UDC GT SCH ×2 (09:59→20:39)
[2019-05-28] MEDS: ACIDOPHILUS/BULGARICUS 1 EACH TAB.CHEW GT SCH ×2 (09:59→17:09)
--- NOTE | 2019-05-28 12:00 | NUR ---
Notified Dr. Luis of BMP result with K= 5.5, BUN 40, Creat 2.4. new order given to give Kayexalate 30 gm. x 1 dose. Order carried out.
[2019-05-28] MEDS ORDERED: SODIUM POLYSTYRENE SULFONATE 15 G/60 ML BOTTLE GT ONE (13:30)
--- NOTE | 2019-05-28 15:48 | NUR ---
Updated Beckie, patient's sister of patient's condition and new orders which include the following: urine culture is positive for ESBL but will not be treated as patient is asymptomatic, Kayexalate given due to elevated K+ level, urine from nephrostomy tube clear and yellow, no hematuria therefore Heparin was resumed. Appreciated the call.
--- NOTE | 2019-05-28 19:29 | NUR ---
RT NOTE: RECEIVED TRACH PT ON [facility] VENT ON NOTED SETTINGS PER MD ORDERS. TRACH IS PATENT AND SECURED. TRACH CARE DONE. JUMP ROLL OPERATOR DONE. Q6 BREATHING TX GIVEN WITH NO ADVERSE REACTION NOTED. SX DONE PRN. VENT PLUGGED INTO RED OUTLET. ALARMS ON AND AUDIBLE. KATHARINEU BAG @ BEDSIDE. NO RESP DISTRESS AT THIS TIME. WILL CONT TO MONITOR PT. Addendum: 05/29/19 at 0108 by QIANA MARY RT Amended: Links added.
[2019-05-28] MEDS: ASCORBIC ACID 500 MG TABLET GT SCH (20:39)
[2019-05-28 20:40] VITALS: BP 131/74
[2019-05-28] MEDS: INSULIN GLARGINE, 100 UNIT/ML CARTRIDGE SQ SCH (21:12)
[2019-05-29] MEDS: ALBUTEROL FS 2.5 MG/3 ML VIAL.NEB NEB SCH ×4 (00:44→20:17)
[2019-05-29] MEDS: GABAPENTIN 250 MG/5 ML SOLUTION GT SCH ×3 (05:32→21:45)
[2019-05-29] MEDS: METOCLOPRAMIDE HCL 10 MG TABLET GT SCH ×3 (05:33→18:08)
[2019-05-29] MEDS: INSULIN REGULAR, HUMAN 100 UNIT/ML 3 ML VIAL SQ PRN ×3 (05:33→18:08)
[2019-05-29] MEDS: OMEPRAZOLE 20 MG CAPSULE.DR GT SCH (05:33)
[2019-05-29] MEDS: BLOOD SUGAR DIAGNOSTIC 1 EACH STRIP IN SCH ×3 (05:33→18:08)
[2019-05-29 07:28] VITALS: BP 97/52
[2019-05-29] MEDS: HYDROGEN PEROXIDE 480 ML BOTTLE TP SCH ×2 (08:17→21:46)
[2019-05-29] MEDS: SIMETHICONE SUSP 40 MG/0.6 ML BOTTLE GT SCH ×2 (09:57→21:45)
[2019-05-29] MEDS: DOCUSATE SODIUM LIQ 100 MG/10 ML UDC GT SCH (09:57)
[2019-05-29] MEDS: LEVETIRACETAM SOL (5 ML) 100 MG/ML UDC GT SCH ×2 (09:57→21:45)
[2019-05-29] MEDS: FERROUS SULFATE UDC 300 MG/5 ML UDC GT SCH ×2 (09:57→16:32)
[2019-05-29] MEDS: ACIDOPHILUS/BULGARICUS 1 EACH TAB.CHEW GT SCH ×2 (09:57→16:32)
[2019-05-29] MEDS: CALCIUM CARBONATE 500 MG TAB.CHEW GT SCH ×2 (09:58→16:32)
[2019-05-29] MEDS: Z GUARD REMEDY 4 OZ OINT TP SCH ×2 (09:58→21:46)
[2019-05-29] MEDS: MUPIROCIN OINT 2% 22 GM TUBE TP SCH ×2 (09:58→21:46)
[2019-05-29] MEDS: TRILEPTAL GT SCH ×2 (09:58→21:45)
[2019-05-29] MEDS: MULTIVIT W/MINERALS 1 TAB TABLET GT SCH (09:58)
[2019-05-29] MEDS: HEPARIN SODIUM, PORCINE 5000 UNITS/1 ML VIAL SQ SCH ×2 (09:58→21:46)
[2019-05-29] MEDS: SENNOSIDES 8.6 MG TABLET GT SCH ×2 (09:58→21:45)
[2019-05-29] MEDS: VITAMINS A AND D 56.7 GM TUBE TP SCH ×2 (09:58→21:46)
--- NOTE | 2019-05-29 10:00 | NUR ---
seen and examined by Dr. Luis with new order. Repeat BMP in AM, requested. No hematuria noted. Afebrile. Will continue to monitor.
--- NOTE | 2019-05-29 15:45 | NUR ---
RT NOTES RECEIVED PATIENT ON VENT WITH ORDERED SETTINGS. TRACH TUBE IN PLACE, PATENT, AND SECURED WITH TRACH TIE. ALARMS ON AND AUDIBLE. VENT PLUGGED IN TO THE RED OUTLET. AMBU BAG AND BACK UP TRACH BY THE BEDSIDE. NO RESP DISTRESS AT THIS TIME. Addendum: 05/29/19 at 1549 by ADRIÁN THOMAS RT Amended: Links added.
[2019-05-29] MEDS: GLUCERNA 1.2 1,000 ML BOTTLE GT PRN (16:32)
[2019-05-29 19:50] VITALS: BP 138/74
[2019-05-29] MEDS: ASCORBIC ACID 500 MG TABLET GT SCH (21:46)
[2019-05-29] MEDS: INSULIN GLARGINE, 100 UNIT/ML CARTRIDGE SQ SCH (21:47)
[2019-05-30] MEDS: BLOOD SUGAR DIAGNOSTIC 1 EACH STRIP IN SCH ×5 (00:51→23:52)
[2019-05-30] MEDS: METOCLOPRAMIDE HCL 10 MG TABLET GT SCH ×5 (00:51→23:52)
[2019-05-30] MEDS: INSULIN REGULAR, HUMAN 100 UNIT/ML 3 ML VIAL SQ PRN ×2 (00:51→06:08)
[2019-05-30] MEDS: ALBUTEROL FS 2.5 MG/3 ML VIAL.NEB NEB SCH ×4 (01:55→19:38)
[2019-05-30] MEDS: GABAPENTIN 250 MG/5 ML SOLUTION GT SCH ×3 (04:45→21:32)
[2019-05-30] MEDS: OMEPRAZOLE 20 MG CAPSULE.DR GT SCH (05:08)
[2019-05-30 07:44] VITALS: BP 109/64
[2019-05-30 07:46] LABS: CALCIUM, SERUM 10.1 mg/dL (8.5-10.1); CREATININE 2.7 mg/dL (0.6-1.3); POTASSIUM 3.3 mmol/L (3.5-5.1)
[2019-05-30] MEDS: HYDROGEN PEROXIDE 480 ML BOTTLE TP SCH ×2 (07:47→21:00)
[2019-05-30] MEDS: Z GUARD REMEDY 4 OZ OINT TP SCH ×2 (09:00→21:34)
[2019-05-30] MEDS: CALCIUM CARBONATE 500 MG TAB.CHEW GT SCH ×2 (09:00→17:00)
[2019-05-30] MEDS: SIMETHICONE SUSP 40 MG/0.6 ML BOTTLE GT SCH ×2 (09:00→21:31)
[2019-05-30] MEDS: ACIDOPHILUS/BULGARICUS 1 EACH TAB.CHEW GT SCH ×2 (09:00→17:00)
[2019-05-30] MEDS: HEPARIN SODIUM, PORCINE 5000 UNITS/1 ML VIAL SQ SCH ×2 (09:00→21:33)
[2019-05-30] MEDS: SENNOSIDES 8.6 MG TABLET GT SCH ×2 (09:00→21:32)
[2019-05-30] MEDS: VITAMINS A AND D 56.7 GM TUBE TP SCH ×2 (09:00→21:34)
[2019-05-30] MEDS: DOCUSATE SODIUM LIQ 100 MG/10 ML UDC GT SCH (09:00)
[2019-05-30] MEDS: TRILEPTAL GT SCH ×2 (09:00→21:32)
[2019-05-30] MEDS: MUPIROCIN OINT 2% 22 GM TUBE TP SCH ×2 (09:00→21:34)
[2019-05-30] MEDS: MULTIVIT W/MINERALS 1 TAB TABLET GT SCH (09:00)
[2019-05-30] MEDS: FERROUS SULFATE UDC 300 MG/5 ML UDC GT SCH ×2 (09:00→17:00)
[2019-05-30] MEDS: LEVETIRACETAM SOL (5 ML) 100 MG/ML UDC GT SCH ×2 (09:00→21:31)
--- NOTE | 2019-05-30 11:25 | NUR ---
Left message for Dr Luis regarding K 3.3.
[2019-05-30] MEDS: GLUCERNA 1.2 1,000 ML BOTTLE GT PRN (13:54)
--- NOTE | 2019-05-30 15:00 | NUR ---
Informed WORKFORCE ADVISOR Anna Vargas that K 3.3. She ordered to repeat BMP in AM.
--- NOTE | 2019-05-30 18:23 | NUR ---
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 Received order to DC contact isolation for VRE left nephrostomy body fluid.
[2019-05-30 20:48] VITALS: BP 135/84
[2019-05-30] MEDS: ASCORBIC ACID 500 MG TABLET GT SCH (21:32)
[2019-05-30] MEDS: INSULIN GLARGINE, 100 UNIT/ML CARTRIDGE SQ SCH (21:34)
[2019-05-31] MEDS: ALBUTEROL FS 2.5 MG/3 ML VIAL.NEB NEB SCH ×4 (02:16→19:38)
[2019-05-31] MEDS: OMEPRAZOLE 20 MG CAPSULE.DR GT SCH (05:50)
[2019-05-31] MEDS: GABAPENTIN 250 MG/5 ML SOLUTION GT SCH ×3 (05:50→21:38)
[2019-05-31] MEDS: BLOOD SUGAR DIAGNOSTIC 1 EACH STRIP IN SCH ×4 (05:50→23:50)
[2019-05-31] MEDS: METOCLOPRAMIDE HCL 10 MG TABLET GT SCH ×4 (05:50→23:50)
[2019-05-31 07:47] LABS: CALCIUM, SERUM 10.7 mg/dL (8.5-10.1); CREATININE 2.5 mg/dL (0.6-1.3); POTASSIUM 3.8 mmol/L (3.5-5.1)
[2019-05-31 07:52] VITALS: BP 110/67
[2019-05-31] MEDS: HYDROGEN PEROXIDE 480 ML BOTTLE TP SCH ×2 (08:13→20:12)
[2019-05-31] MEDS: MUPIROCIN OINT 2% 22 GM TUBE TP SCH ×2 (09:00→21:39)
[2019-05-31] MEDS: HEPARIN SODIUM, PORCINE 5000 UNITS/1 ML VIAL SQ SCH ×2 (09:00→21:39)
[2019-05-31] MEDS: MULTIVIT W/MINERALS 1 TAB TABLET GT SCH (09:00)
[2019-05-31] MEDS: VITAMINS A AND D 56.7 GM TUBE TP SCH ×2 (09:00→21:39)
[2019-05-31] MEDS: LEVETIRACETAM SOL (5 ML) 100 MG/ML UDC GT SCH ×2 (09:00→21:38)
[2019-05-31] MEDS: SENNOSIDES 8.6 MG TABLET GT SCH ×2 (09:00→21:38)
[2019-05-31] MEDS: CALCIUM CARBONATE 500 MG TAB.CHEW GT SCH ×2 (09:00→17:00)
[2019-05-31] MEDS: Z GUARD REMEDY 4 OZ OINT TP SCH ×2 (09:00→21:39)
[2019-05-31] MEDS: DOCUSATE SODIUM LIQ 100 MG/10 ML UDC GT SCH (09:00)
[2019-05-31] MEDS: ACIDOPHILUS/BULGARICUS 1 EACH TAB.CHEW GT SCH ×2 (09:00→17:00)
[2019-05-31] MEDS: FERROUS SULFATE UDC 300 MG/5 ML UDC GT SCH ×2 (09:00→17:00)
[2019-05-31] MEDS: TRILEPTAL GT SCH ×2 (09:00→21:38)
[2019-05-31] MEDS: SIMETHICONE SUSP 40 MG/0.6 ML BOTTLE GT SCH ×2 (09:00→21:38)
--- NOTE | 2019-05-31 09:29 | NUR ---
Seen and examined by Dr. Felix, reported BMP result today, said he will review it. NNO given.
[2019-05-31] MEDS: GLUCERNA 1.2 1,000 ML BOTTLE GT PRN (11:47)
[2019-05-31 19:42] VITALS: BP 132/71
--- NOTE | 2019-05-31 20:16 | NUR ---
PT RCVD TRACH'D ON MECHANICAL VENT WITH CHARTED SETTINGS. PT APRIL TX WELL. SX DONE. PT TRACH IS PATENT AND SECURE. VENT ALARMS APPEAR TO BE FUNCTIONING PROPERLY. AMBU BAG AT BEDSIDE. VENT PLUGGED INTO RED OUTLET. NO SOB NOTED. Addendum: 05/31/19 at 2017 by MICH AVILA RT Amended: Links added.
[2019-05-31] MEDS: ASCORBIC ACID 500 MG TABLET GT SCH (21:38)
[2019-05-31] MEDS: INSULIN GLARGINE, 100 UNIT/ML CARTRIDGE SQ SCH (21:40)
[2019-06-01] MEDS: ALBUTEROL FS 2.5 MG/3 ML VIAL.NEB NEB SCH ×4 (01:25→19:36)
[2019-06-01] MEDS: GABAPENTIN 250 MG/5 ML SOLUTION GT SCH ×3 (05:00→21:02)
[2019-06-01] MEDS: METOCLOPRAMIDE HCL 10 MG TABLET GT SCH ×4 (06:07→23:51)
[2019-06-01] MEDS: BLOOD SUGAR DIAGNOSTIC 1 EACH STRIP IN SCH ×4 (06:07→23:52)
[2019-06-01] MEDS: OMEPRAZOLE 20 MG CAPSULE.DR GT SCH (06:07)
[2019-06-01] MEDS: HYDROGEN PEROXIDE 480 ML BOTTLE TP SCH ×2 (07:12→19:36)
[2019-06-01 07:48] VITALS: BP 134/60
[2019-06-01] MEDS: FERROUS SULFATE UDC 300 MG/5 ML UDC GT SCH ×2 (08:46→17:49)
[2019-06-01] MEDS: DOCUSATE SODIUM LIQ 100 MG/10 ML UDC GT SCH (08:46)
[2019-06-01] MEDS: LEVETIRACETAM SOL (5 ML) 100 MG/ML UDC GT SCH ×2 (08:49→21:02)
[2019-06-01] MEDS: ACIDOPHILUS/BULGARICUS 1 EACH TAB.CHEW GT SCH ×2 (08:49→17:49)
[2019-06-01] MEDS: SIMETHICONE SUSP 40 MG/0.6 ML BOTTLE GT SCH ×2 (08:49→21:02)
[2019-06-01] MEDS: CALCIUM CARBONATE 500 MG TAB.CHEW GT SCH ×2 (08:50→17:49)
[2019-06-01] MEDS: SENNOSIDES 8.6 MG TABLET GT SCH ×2 (08:50→21:02)
[2019-06-01] MEDS: MULTIVIT W/MINERALS 1 TAB TABLET GT SCH (08:50)
[2019-06-01] MEDS: TRILEPTAL GT SCH ×2 (08:50→21:02)
[2019-06-01] MEDS: HEPARIN SODIUM, PORCINE 5000 UNITS/1 ML VIAL SQ SCH ×2 (09:10→21:03)
[2019-06-01] MEDS: Z GUARD REMEDY 4 OZ OINT TP SCH ×2 (09:11→21:03)
[2019-06-01] MEDS: MUPIROCIN OINT 2% 22 GM TUBE TP SCH (09:11)
[2019-06-01] MEDS: VITAMINS A AND D 56.7 GM TUBE TP SCH ×2 (09:11→21:03)
--- NOTE | 2019-06-01 16:30 | NUR ---
RT NOTE RECEIVED PATIENT ON TRACH ON MECHANICAL VENTILATOR WITH NOTED SETTINGS. TRACH IS PATENT AND SECURED. VENTILATOR IS PLUGGED TO RED OUTLET. SPARE TRACH AND BVM IS AT BEDSIDE. PATIENT HAS EQUAL CHEST RISE WITH COARSE BILATERAL BREATH SOUNDS. PATIENT IS COMFORTABLE AND IN SYNC WITH THE VENTILATOR. Q6 BREATHING TREATMENTS GIVEN WITH NO ADVERSE REACTIONS. SUCTION SMALL THIN GREEN SECRETIONS THROUGH OUT THE DAY. NO SOB NOTED. Addendum: 06/01/19 at 1636 by DAVE HICKMAN RT Amended: Links added.
[2019-06-01] MEDS: INSULIN REGULAR, HUMAN 100 UNIT/ML 3 ML VIAL SQ PRN ×2 (17:49→23:53)
[2019-06-01] MEDS: GLUCERNA 1.2 1,000 ML BOTTLE GT PRN (20:00)
[2019-06-01] MEDS: ASCORBIC ACID 500 MG TABLET GT SCH (21:02)
[2019-06-01] MEDS: INSULIN GLARGINE, 100 UNIT/ML CARTRIDGE SQ SCH (21:18)
[2019-06-01 21:26] VITALS: BP 128/79
[2019-06-02] MEDS: ALBUTEROL FS 2.5 MG/3 ML VIAL.NEB NEB SCH ×4 (01:55→20:21)
--- NOTE | 2019-06-02 02:27 | NUR ---
PATIENT RECEIVED ON TRACH TO VENT WITH SETTINGS OF AC 16, 550 VT, 30%, +5. SUCTIONED FOR MINIMAL, THIN, WHITE SECRETIONS. GIVEN IN-LINE TREATMENTS WITH NO ADVERSE REACTIONS. AMBU BAG AT BEDSIDE. VENT ALARM AUDIBLE AND VISIBLE. VENT PLUGGED INTO RED OUTLET. Addendum: 06/02/19 at 0229 by SARA MOLINA RT Amended: Links added.
[2019-06-02] MEDS: OMEPRAZOLE 20 MG CAPSULE.DR GT SCH (05:28)
[2019-06-02] MEDS: GABAPENTIN 250 MG/5 ML SOLUTION GT SCH ×3 (05:28→21:42)
[2019-06-02] MEDS: METOCLOPRAMIDE HCL 10 MG TABLET GT SCH ×4 (05:29→23:35)
[2019-06-02] MEDS: INSULIN REGULAR, HUMAN 100 UNIT/ML 3 ML VIAL SQ PRN ×4 (05:29→23:35)
[2019-06-02] MEDS: BLOOD SUGAR DIAGNOSTIC 1 EACH STRIP IN SCH ×4 (05:29→23:35)
[2019-06-02 07:46] VITALS: BP 123/65
[2019-06-02] MEDS: HYDROGEN PEROXIDE 480 ML BOTTLE TP SCH ×2 (09:00→20:24)
[2019-06-02] MEDS: ACIDOPHILUS/BULGARICUS 1 EACH TAB.CHEW GT SCH ×2 (09:09→17:23)
[2019-06-02] MEDS: SIMETHICONE SUSP 40 MG/0.6 ML BOTTLE GT SCH ×2 (09:09→21:42)
[2019-06-02] MEDS: SENNOSIDES 8.6 MG TABLET GT SCH ×2 (09:09→21:42)
[2019-06-02] MEDS: DOCUSATE SODIUM LIQ 100 MG/10 ML UDC GT SCH (09:09)
[2019-06-02] MEDS: LEVETIRACETAM SOL (5 ML) 100 MG/ML UDC GT SCH ×2 (09:09→21:42)
[2019-06-02] MEDS: MULTIVIT W/MINERALS 1 TAB TABLET GT SCH (09:09)
[2019-06-02] MEDS: FERROUS SULFATE UDC 300 MG/5 ML UDC GT SCH ×2 (09:09→17:23)
[2019-06-02] MEDS: CALCIUM CARBONATE 500 MG TAB.CHEW GT SCH ×2 (09:09→17:23)
[2019-06-02] MEDS: Z GUARD REMEDY 4 OZ OINT TP SCH ×2 (09:10→21:43)
[2019-06-02] MEDS: VITAMINS A AND D 56.7 GM TUBE TP SCH ×2 (09:10→21:43)
[2019-06-02] MEDS: HEPARIN SODIUM, PORCINE 5000 UNITS/1 ML VIAL SQ SCH ×2 (09:10→21:43)
[2019-06-02] MEDS: TRILEPTAL GT SCH ×2 (09:11→21:42)
[2019-06-02] MEDS: GLUCERNA 1.2 1,000 ML BOTTLE GT PRN (17:25)
--- NOTE | 2019-06-02 18:21 | NUR ---
RT NOTE RECEIVED PT MECHANICALLY VENTILATED VIA SHILEY 8 XLT CUFFED TRACHEOSTOMY TUBE. CUFF INFLATED. TRACH TUBE MIDLINE AND SECURE. VENTILATOR SETTINGS PRESCRIBED. ALARMS SET PER PROTOCOL AND AUDIBLE. VENT PLUGGED IN TO RED OUTLET. AMBU BAG AND BACK UP TRACH AT BED SIDE. NO DISTRESS NOTED. Addendum: 06/02/19 at 1822 by MAXI BRADY RT Amended: Links added.
--- NOTE | 2019-06-02 20:29 | NUR ---
PT RECEIVE STABLE ON MV, SETTINGS ARE AC 16 550 +5 AT 30% FIO2, ALARMS ARE ON AND AUDIBLE, TRACH PATENT AND SECURED, BELGICA LAMBERT AND NEVA DELGADO IS AT BEDSIDE, WILL CONTINUE TO MONITOR Addendum: 06/02/19 at 2030 by ASHLI GRIGGS RT Amended: Links added.
[2019-06-02 20:37] VITALS: BP 101/70
[2019-06-02] MEDS: ASCORBIC ACID 500 MG TABLET GT SCH (21:42)
[2019-06-02] MEDS: INSULIN GLARGINE, 100 UNIT/ML CARTRIDGE SQ SCH (22:14)
[2019-06-03] MEDS: ALBUTEROL FS 2.5 MG/3 ML VIAL.NEB NEB SCH ×4 (01:43→18:42)
[2019-06-03] MEDS: OMEPRAZOLE 20 MG CAPSULE.DR GT SCH (05:11)
[2019-06-03] MEDS: GABAPENTIN 250 MG/5 ML SOLUTION GT SCH ×3 (05:11→21:37)
[2019-06-03] MEDS: METOCLOPRAMIDE HCL 10 MG TABLET GT SCH ×3 (05:12→18:15)
[2019-06-03] MEDS: INSULIN REGULAR, HUMAN 100 UNIT/ML 3 ML VIAL SQ PRN (05:52)
[2019-06-03] MEDS: BLOOD SUGAR DIAGNOSTIC 1 EACH STRIP IN SCH ×3 (05:52→18:15)
[2019-06-03 07:35] VITALS: BP 106/71
[2019-06-03] MEDS: FERROUS SULFATE UDC 300 MG/5 ML UDC GT SCH ×2 (08:01→16:20)
[2019-06-03] MEDS: DOCUSATE SODIUM LIQ 100 MG/10 ML UDC GT SCH (08:01)
[2019-06-03] MEDS: LEVETIRACETAM SOL (5 ML) 100 MG/ML UDC GT SCH ×2 (08:02→21:36)
[2019-06-03] MEDS: ACIDOPHILUS/BULGARICUS 1 EACH TAB.CHEW GT SCH ×2 (08:02→16:20)
[2019-06-03] MEDS: SIMETHICONE SUSP 40 MG/0.6 ML BOTTLE GT SCH ×2 (08:03→21:36)
[2019-06-03] MEDS: TRILEPTAL GT SCH ×2 (08:05→21:37)
[2019-06-03] MEDS: SENNOSIDES 8.6 MG TABLET GT SCH ×2 (08:05→21:37)
[2019-06-03] MEDS: CALCIUM CARBONATE 500 MG TAB.CHEW GT SCH ×2 (08:06→16:20)
[2019-06-03] MEDS: MULTIVIT W/MINERALS 1 TAB TABLET GT SCH (08:11)
[2019-06-03] MEDS: HEPARIN SODIUM, PORCINE 5000 UNITS/1 ML VIAL SQ SCH ×2 (08:14→21:38)
[2019-06-03] MEDS: VITAMINS A AND D 56.7 GM TUBE TP SCH ×2 (08:14→21:37)
[2019-06-03] MEDS: Z GUARD REMEDY 4 OZ OINT TP SCH ×2 (08:14→21:37)
--- NOTE | 2019-06-03 08:26 | NUR ---
RT NOTE RECEIVED PT MECHANICALLY VENTILATED VIA SHILEY 8 XLT CUFFED TRACHEOSTOMY TUBE. CUFF INFLATED. TRACH TUBE MIDLINE AND SECURE. VENTILATOR SETTINGS PRESCRIBED. ALARMS SET PER PROTOCOL AND AUDIBLE. VENT PLUGGED IN TO RED OUTLET. AMBU BAG AND BACK UP TRACH AT BED SIDE. NO DISTRESS NOTED. Addendum: 06/03/19 at 0826 by MAXI BRADY RT Amended: Links added.
[2019-06-03] MEDS: HYDROGEN PEROXIDE 480 ML BOTTLE TP SCH ×2 (09:00→21:00)
[2019-06-03] MEDS: GLUCERNA 1.2 1,000 ML BOTTLE GT PRN (15:16)
[2019-06-03 19:48] VITALS: BP 123/71
[2019-06-03] MEDS: ASCORBIC ACID 500 MG TABLET GT SCH (21:37)
[2019-06-03] MEDS: INSULIN GLARGINE, 100 UNIT/ML CARTRIDGE SQ SCH (22:29)
[2019-06-04] MEDS: BLOOD SUGAR DIAGNOSTIC 1 EACH STRIP IN SCH ×5 (00:19→23:47)
[2019-06-04] MEDS: METOCLOPRAMIDE HCL 10 MG TABLET GT SCH ×5 (00:19→23:46)
[2019-06-04] MEDS: INSULIN REGULAR, HUMAN 100 UNIT/ML 3 ML VIAL SQ PRN ×3 (00:21→23:47)
[2019-06-04] MEDS: ALBUTEROL FS 2.5 MG/3 ML VIAL.NEB NEB SCH ×4 (01:41→19:18)
[2019-06-04] MEDS: GABAPENTIN 250 MG/5 ML SOLUTION GT SCH ×3 (05:57→20:18)
[2019-06-04] MEDS: OMEPRAZOLE 20 MG CAPSULE.DR GT SCH (05:57)
[2019-06-04 07:57] VITALS: BP 121/68
[2019-06-04 07:58] VITALS: BP 106/72
[2019-06-04] MEDS: TRILEPTAL GT SCH ×2 (08:59→20:18)
[2019-06-04] MEDS: FERROUS SULFATE UDC 300 MG/5 ML UDC GT SCH ×2 (08:59→17:34)
[2019-06-04] MEDS: DOCUSATE SODIUM LIQ 100 MG/10 ML UDC GT SCH (08:59)
[2019-06-04] MEDS: CALCIUM CARBONATE 500 MG TAB.CHEW GT SCH ×2 (08:59→17:34)
[2019-06-04] MEDS: ACIDOPHILUS/BULGARICUS 1 EACH TAB.CHEW GT SCH ×2 (08:59→17:34)
[2019-06-04] MEDS: MULTIVIT W/MINERALS 1 TAB TABLET GT SCH (08:59)
[2019-06-04] MEDS: SENNOSIDES 8.6 MG TABLET GT SCH ×2 (08:59→20:18)
[2019-06-04] MEDS: SIMETHICONE SUSP 40 MG/0.6 ML BOTTLE GT SCH ×2 (08:59→20:18)
[2019-06-04] MEDS: LEVETIRACETAM SOL (5 ML) 100 MG/ML UDC GT SCH ×2 (08:59→20:18)
[2019-06-04] MEDS: VITAMINS A AND D 56.7 GM TUBE TP SCH ×2 (09:00→20:19)
[2019-06-04] MEDS: HEPARIN SODIUM, PORCINE 5000 UNITS/1 ML VIAL SQ SCH ×2 (09:00→20:19)
[2019-06-04] MEDS: Z GUARD REMEDY 4 OZ OINT TP SCH ×2 (09:00→20:19)
[2019-06-04] MEDS: HYDROGEN PEROXIDE 480 ML BOTTLE TP SCH ×2 (09:00→21:00)
--- NOTE | 2019-06-04 09:28 | NUR ---
RT NOTE RECEIVED PT MECHANICALLY VENTILATED VIA SHILEY 8 XLT CUFFED TRACHEOSTOMY TUBE. CUFF INFLATED. TRACH TUBE MIDLINE AND SECURE. VENTILATOR SETTINGS PRESCRIBED. ALARMS SET PER PROTOCOL AND AUDIBLE. VENT PLUGGED IN TO RED OUTLET. AMBU BAG AND BACK UP TRACH AT BED SIDE. NO DISTRESS NOTED. Addendum: 06/04/19 at 0928 by MAXI BRADY RT Amended: Links added.
[2019-06-04] MEDS: GLUCERNA 1.2 1,000 ML BOTTLE GT PRN (11:28)
[2019-06-04 19:52] VITALS: BP 136/77
[2019-06-04] MEDS: ASCORBIC ACID 500 MG TABLET GT SCH (20:18)
[2019-06-04] MEDS: INSULIN GLARGINE, 100 UNIT/ML CARTRIDGE SQ SCH (21:39)
[2019-06-05] MEDS: ALBUTEROL FS 2.5 MG/3 ML VIAL.NEB NEB SCH ×4 (02:06→19:14)
[2019-06-05] MEDS: OMEPRAZOLE 20 MG CAPSULE.DR GT SCH (05:19)
[2019-06-05] MEDS: GABAPENTIN 250 MG/5 ML SOLUTION GT SCH ×3 (05:19→21:05)
[2019-06-05] MEDS: METOCLOPRAMIDE HCL 10 MG TABLET GT SCH ×3 (05:19→17:12)
[2019-06-05] MEDS: GLUCERNA 1.2 1,000 ML BOTTLE GT PRN (05:20)
[2019-06-05] MEDS: INSULIN REGULAR, HUMAN 100 UNIT/ML 3 ML VIAL SQ PRN ×3 (05:26→17:13)
[2019-06-05] MEDS: BLOOD SUGAR DIAGNOSTIC 1 EACH STRIP IN SCH ×3 (05:26→17:12)
[2019-06-05 07:20] VITALS: BP 105/60
[2019-06-05] MEDS: HYDROGEN PEROXIDE 480 ML BOTTLE TP SCH ×2 (09:00→21:00)
[2019-06-05] MEDS: VITAMINS A AND D 56.7 GM TUBE TP SCH ×2 (09:57→21:07)
[2019-06-05] MEDS: SENNOSIDES 8.6 MG TABLET GT SCH ×2 (09:57→21:05)
[2019-06-05] MEDS: SIMETHICONE SUSP 40 MG/0.6 ML BOTTLE GT SCH ×2 (09:57→21:05)
[2019-06-05] MEDS: HEPARIN SODIUM, PORCINE 5000 UNITS/1 ML VIAL SQ SCH ×2 (09:57→21:06)
[2019-06-05] MEDS: FERROUS SULFATE UDC 300 MG/5 ML UDC GT SCH ×2 (09:57→17:12)
[2019-06-05] MEDS: Z GUARD REMEDY 4 OZ OINT TP SCH ×2 (09:57→21:06)
[2019-06-05] MEDS: DOCUSATE SODIUM LIQ 100 MG/10 ML UDC GT SCH (09:57)
[2019-06-05] MEDS: TRILEPTAL GT SCH ×2 (09:57→21:05)
[2019-06-05] MEDS: CALCIUM CARBONATE 500 MG TAB.CHEW GT SCH ×2 (09:57→17:12)
[2019-06-05] MEDS: ACIDOPHILUS/BULGARICUS 1 EACH TAB.CHEW GT SCH ×2 (09:57→17:12)
[2019-06-05] MEDS: MULTIVIT W/MINERALS 1 TAB TABLET GT SCH (09:57)
[2019-06-05] MEDS: LEVETIRACETAM SOL (5 ML) 100 MG/ML UDC GT SCH ×2 (09:57→21:05)
[2019-06-05 19:50] VITALS: BP 101/59
[2019-06-05] MEDS: ASCORBIC ACID 500 MG TABLET GT SCH (21:05)
[2019-06-05] MEDS: INSULIN GLARGINE, 100 UNIT/ML CARTRIDGE SQ SCH (21:07)
[2019-06-06] MEDS: METOCLOPRAMIDE HCL 10 MG TABLET GT SCH ×5 (00:02→23:56)
[2019-06-06] MEDS: BLOOD SUGAR DIAGNOSTIC 1 EACH STRIP IN SCH ×5 (00:02→23:56)
[2019-06-06] MEDS: ALBUTEROL FS 2.5 MG/3 ML VIAL.NEB NEB SCH ×4 (01:30→19:26)
[2019-06-06] MEDS: GABAPENTIN 250 MG/5 ML SOLUTION GT SCH ×3 (05:45→20:02)
[2019-06-06] MEDS: OMEPRAZOLE 20 MG CAPSULE.DR GT SCH (05:45)
[2019-06-06 07:29] VITALS: BP 141/73
[2019-06-06] MEDS: TRILEPTAL GT SCH ×2 (08:00→20:04)
[2019-06-06] MEDS: HYDROGEN PEROXIDE 480 ML BOTTLE TP SCH ×2 (08:00→20:08)
[2019-06-06] MEDS: MULTIVIT W/MINERALS 1 TAB TABLET GT SCH (08:00)
[2019-06-06] MEDS: FERROUS SULFATE UDC 300 MG/5 ML UDC GT SCH ×2 (08:00→17:08)
[2019-06-06] MEDS: DOCUSATE SODIUM LIQ 100 MG/10 ML UDC GT SCH (08:00)
[2019-06-06] MEDS: LEVETIRACETAM SOL (5 ML) 100 MG/ML UDC GT SCH ×2 (08:00→20:01)
[2019-06-06] MEDS: SENNOSIDES 8.6 MG TABLET GT SCH ×2 (08:00→20:07)
[2019-06-06] MEDS: CALCIUM CARBONATE 500 MG TAB.CHEW GT SCH ×2 (08:00→17:08)
[2019-06-06] MEDS: SIMETHICONE SUSP 40 MG/0.6 ML BOTTLE GT SCH ×2 (08:00→20:02)
[2019-06-06] MEDS: ACIDOPHILUS/BULGARICUS 1 EACH TAB.CHEW GT SCH ×2 (08:00→17:08)
[2019-06-06] MEDS: Z GUARD REMEDY 4 OZ OINT TP SCH ×2 (08:01→20:11)
[2019-06-06] MEDS: VITAMINS A AND D 56.7 GM TUBE TP SCH ×2 (08:01→20:11)
[2019-06-06] MEDS: HEPARIN SODIUM, PORCINE 5000 UNITS/1 ML VIAL SQ SCH ×2 (08:03→20:10)
--- NOTE | 2019-06-06 10:29 | NUR ---
RT NOTE RECEIVED PATIENT ON TRACH WITH MECHANICAL VENTILATOR. TRACH IS PATENT AND SECURED. SPARE TRACH AND BVM IS AT BEDSIDE. VENTILATOR IS PLUGGED TO RED OUTLET. ALARMS ARE SET AND AUDIBLE. PATIENT HAS EQUAL CHEST RISE AND COARSE BILATERAL BREATH SOUNDS. SUCTION SMALL AMOUNT OF GREEN THIN SECRETIONS. PATIENT IS IN SYNC AND COMFORTABLE ON THE VENTILATOR. WILL CONTINUE TO MONITOR. Addendum: 06/06/19 at 1035 by DAVE HICKMAN RT Amended: Links added.
[2019-06-06] MEDS: INSULIN REGULAR, HUMAN 100 UNIT/ML 3 ML VIAL SQ PRN ×2 (11:16→23:58)
[2019-06-06] MEDS: GLUCERNA 1.2 1,000 ML BOTTLE GT PRN (17:44)
[2019-06-06 19:58] VITALS: BP 120/67
[2019-06-06] MEDS: ASCORBIC ACID 500 MG TABLET GT SCH (20:07)
--- NOTE | 2019-06-06 20:49 | NUR ---
PT RCVD TRACH'D ON MECHANICAL VENT WITH CHARTED SETTINGS. PT APRIL TX WELL. SX DONE. PT TRACH IS PATENT AND SECURE. VENT ALARMS APPEAR TO BE FUNCTIONING PROPERLY. AMBU BAG AT BEDSIDE. VENT PLUGGED INTO RED OUTLET. NO SOB NOTED. Addendum: 06/06/19 at 2049 by MICH AVILA RT Amended: Links added.
[2019-06-06] MEDS: INSULIN GLARGINE, 100 UNIT/ML CARTRIDGE SQ SCH (21:05)
[2019-06-07] MEDS: ALBUTEROL FS 2.5 MG/3 ML VIAL.NEB NEB SCH ×4 (00:34→20:08)
[2019-06-07] MEDS: GABAPENTIN 250 MG/5 ML SOLUTION GT SCH ×3 (05:13→20:04)
[2019-06-07] MEDS: OMEPRAZOLE 20 MG CAPSULE.DR GT SCH (05:14)
[2019-06-07] MEDS: BLOOD SUGAR DIAGNOSTIC 1 EACH STRIP IN SCH ×3 (05:14→17:48)
[2019-06-07] MEDS: METOCLOPRAMIDE HCL 10 MG TABLET GT SCH ×3 (05:14→17:32)
[2019-06-07] MEDS: INSULIN REGULAR, HUMAN 100 UNIT/ML 3 ML VIAL SQ PRN ×3 (05:15→17:48)
[2019-06-07 07:27] VITALS: BP 120/65
[2019-06-07] MEDS: HYDROGEN PEROXIDE 480 ML BOTTLE TP SCH ×2 (08:29→21:00)
[2019-06-07] MEDS: HEPARIN SODIUM, PORCINE 5000 UNITS/1 ML VIAL SQ SCH ×2 (09:00→20:08)
[2019-06-07] MEDS: DOCUSATE SODIUM LIQ 100 MG/10 ML UDC GT SCH (09:43)
[2019-06-07] MEDS: LEVETIRACETAM SOL (5 ML) 100 MG/ML UDC GT SCH ×2 (09:43→20:04)
[2019-06-07] MEDS: FERROUS SULFATE UDC 300 MG/5 ML UDC GT SCH ×2 (09:43→17:32)
[2019-06-07] MEDS: ACIDOPHILUS/BULGARICUS 1 EACH TAB.CHEW GT SCH ×2 (09:43→17:32)
[2019-06-07] MEDS: VITAMINS A AND D 56.7 GM TUBE TP SCH ×2 (09:44→20:08)
[2019-06-07] MEDS: CALCIUM CARBONATE 500 MG TAB.CHEW GT SCH ×2 (09:44→17:32)
[2019-06-07] MEDS: TRILEPTAL GT SCH ×2 (09:44→20:05)
[2019-06-07] MEDS: SIMETHICONE SUSP 40 MG/0.6 ML BOTTLE GT SCH ×2 (09:44→20:04)
[2019-06-07] MEDS: SENNOSIDES 8.6 MG TABLET GT SCH ×2 (09:44→20:06)
[2019-06-07] MEDS: Z GUARD REMEDY 4 OZ OINT TP SCH ×2 (09:44→20:08)
[2019-06-07] MEDS: MULTIVIT W/MINERALS 1 TAB TABLET GT SCH (09:44)
[2019-06-07] MEDS: GLUCERNA 1.2 1,000 ML BOTTLE GT PRN (11:06)
--- NOTE | 2019-06-07 13:23 | NUR ---
STEPHEN left a voicemail for pt.'s responsible green party/conservator, Beckie Chu [phone] informing them that the pt. will receive a new account for the new year and new intake paperwork must be completed. STEPHEN will await for Beckie's call to schedule a meeting time.
[2019-06-07 19:51] VITALS: BP 123/69
[2019-06-07] MEDS: ASCORBIC ACID 500 MG TABLET GT SCH (20:06)
[2019-06-07] MEDS: INSULIN GLARGINE, 100 UNIT/ML CARTRIDGE SQ SCH (21:34)
[2019-06-08] MEDS: BLOOD SUGAR DIAGNOSTIC 1 EACH STRIP IN SCH ×4 (00:15→17:37)
[2019-06-08] MEDS: METOCLOPRAMIDE HCL 10 MG TABLET GT SCH ×5 (00:15→23:14)
[2019-06-08] MEDS: INSULIN REGULAR, HUMAN 100 UNIT/ML 3 ML VIAL SQ PRN ×3 (00:16→17:38)
[2019-06-08] MEDS: ALBUTEROL FS 2.5 MG/3 ML VIAL.NEB NEB SCH ×4 (01:21→19:29)
[2019-06-08] MEDS: GLUCERNA 1.2 1,000 ML BOTTLE GT PRN ×2 (03:49→23:14)
[2019-06-08] MEDS: GABAPENTIN 250 MG/5 ML SOLUTION GT SCH ×3 (05:09→20:10)
[2019-06-08] MEDS: OMEPRAZOLE 20 MG CAPSULE.DR GT SCH (05:10)
[2019-06-08 07:56] VITALS: BP 121/85
[2019-06-08] MEDS: HYDROGEN PEROXIDE 480 ML BOTTLE TP SCH ×2 (08:10→19:30)
[2019-06-08] MEDS: DOCUSATE SODIUM LIQ 100 MG/10 ML UDC GT SCH (08:40)
[2019-06-08] MEDS: LEVETIRACETAM SOL (5 ML) 100 MG/ML UDC GT SCH ×2 (08:40→20:08)
[2019-06-08] MEDS: FERROUS SULFATE UDC 300 MG/5 ML UDC GT SCH ×2 (08:40→16:34)
[2019-06-08] MEDS: SIMETHICONE SUSP 40 MG/0.6 ML BOTTLE GT SCH ×2 (08:41→20:09)
[2019-06-08] MEDS: ACIDOPHILUS/BULGARICUS 1 EACH TAB.CHEW GT SCH ×2 (08:41→16:34)
[2019-06-08] MEDS: CALCIUM CARBONATE 500 MG TAB.CHEW GT SCH ×2 (08:42→16:34)
[2019-06-08] MEDS: SENNOSIDES 8.6 MG TABLET GT SCH ×2 (08:42→20:11)
[2019-06-08] MEDS: TRILEPTAL GT SCH ×2 (08:42→20:10)
[2019-06-08] MEDS: HEPARIN SODIUM, PORCINE 5000 UNITS/1 ML VIAL SQ SCH ×2 (08:42→20:13)
[2019-06-08] MEDS: MULTIVIT W/MINERALS 1 TAB TABLET GT SCH (08:42)
[2019-06-08] MEDS: Z GUARD REMEDY 4 OZ OINT TP SCH ×2 (09:20→20:14)
[2019-06-08] MEDS: VITAMINS A AND D 56.7 GM TUBE TP SCH ×2 (09:21→20:14)
[2019-06-08 20:00] VITALS: BP 139/82
[2019-06-08] MEDS: ASCORBIC ACID 500 MG TABLET GT SCH (20:11)
[2019-06-08] MEDS: INSULIN GLARGINE, 100 UNIT/ML CARTRIDGE SQ SCH (21:49)
[2019-06-09] MEDS: BLOOD SUGAR DIAGNOSTIC 1 EACH STRIP IN SCH ×2 (00:36→05:04)
[2019-06-09] MEDS: INSULIN REGULAR, HUMAN 100 UNIT/ML 3 ML VIAL SQ PRN ×2 (00:38→05:06)
[2019-06-09] MEDS: ALBUTEROL FS 2.5 MG/3 ML VIAL.NEB NEB SCH (02:20)
[2019-06-09] MEDS: OMEPRAZOLE 20 MG CAPSULE.DR GT SCH (05:04)
[2019-06-09] MEDS: GABAPENTIN 250 MG/5 ML SOLUTION GT SCH (05:04)
[2019-06-09] MEDS: METOCLOPRAMIDE HCL 10 MG TABLET GT SCH (05:04)
--- NOTE | 2019-06-09 05:37 | NUR ---
PATIENT RECEIVED ON TRACH TO VENT WITH SETTINGS OF AC 16, 550 Vt, 30%, +5. SUCTIONED FOR MINIMAL, THIN, WHITE SECRETIONS. GIVEN IN-LINE TREATMENTS WITH NO ADVERSE REACTIONS. AMBU BAG AT BEDSIDE. VENT ALARM AUDIBLE AND VISIBLE. VENT PLUGGED INTO RED OUTLET. TRACH CARE DONE. Addendum: 06/09/19 at 0539 by SARA MOLINA RT Amended: Links added.
[2019-06-09 07:42] VITALS: BP 105/68
== END 2019-06-07 23:59 | disposition still patient (30) | DRG 130 ==
LOC: SA 12:16
PROVIDERS: ADMIT Internal Medicine; ATTEND Internal Medicine
PROC: 5A1955Z Respiratory Ventilation, Greater than 96 Consecutive Hours (ICD-10-PCS; principal; 2019-03-17)
DX: J96.11 Chronic respiratory failure with hypoxia (principal); N17.0 Acute kidney failure with tubular necrosis; G93.1 Anoxic brain damage, not elsewhere classified; J95.851 Ventilator associated pneumonia; I13.0 Hypertensive heart and chronic kidney disease with heart failure and stage 1 through stage 4 chronic kidney disease, or unspecified chronic kidney disease; I50.9 Heart failure, unspecified; E11.22 Type 2 diabetes mellitus with diabetic chronic kidney disease; K56.7 Ileus, unspecified; R13.10 Dysphagia, unspecified; N18.4 Chronic kidney disease, stage 4 (severe); N39.0 Urinary tract infection, site not specified; I25.10 Atherosclerotic heart disease of native coronary artery without angina pectoris; D63.8 Anemia in other chronic diseases classified elsewhere; G40.909 Epilepsy, unspecified, not intractable, without status epilepticus; E87.6 Hypokalemia; G62.9 Polyneuropathy, unspecified; K21.9 Gastro-esophageal reflux disease without esophagitis; L60.3 Nail dystrophy; Z74.01 Bed confinement status; Z87.440 Personal history of urinary (tract) infections; Z99.11 Dependence on respirator [ventilator] status
CPT/HCPCS: 31720; 36415; 71045-TC; 74018; 76770-TC; 80048-TC; 80053-TC; 80150; 81000-TC; 82542; 82565-TC; 82962-TC; 83735-TC; 84100-TC; 84520-TC; 85025-TC; 85610-TC; 85730-TC; 86850-TC; 86921-TC; 87040-TC; 87070-TC; 87081-TC; 87086-TC; 87186-TC; 94003-TC; 94760-TC; 94799-TC; 97110-TC; 97112-TC; 97530-TC; A4216; A4217; A4623; A6253; A7526; J0278; J0692; J1644; J1815; J1953; J2185; J3490; J7030; J7060; J8597; P9016-BL

== ENCOUNTER 2019-04-12 13:31 | Outpatient (CLI) | payer MEDICAID ==
[2019-04-12] VITALS (16 sets, daily range): BP systolic 71–144; BP diastolic 30–74
[~2019-04-12 13:31] MED LIST changes: +FENTANYL PF 250MCG/5ML AMPUL IV ONE; +MIDAZOLAM HCL 5MG/ML VIAL 25 MG/5 ML VIAL IV ONE; +NALOXONE PREFILLED SYRINGE 2 MG/2 ML SYRINGE IV ONE
--- NOTE | 2019-04-12 13:45 | NUR ---
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
--- NOTE | 2019-04-12 14:10 | NUR ---
CT/RN PT IS ON THE CT SCAN TABLE ,FOR NEPHROSTOMY PLACEMENT .MD AT BED SIDE.O.5 MG VERSED IV GIVEN ORDERED.BP STABLE.
--- NOTE | 2019-04-12 15:20 | NUR ---
CT/RN PT TRANSFER BACK TO SUBACUTE ROOM 266.LEFT NEPHROSTOMY PLACED BY DR KHANNA.PT TOLERATED PROCEDURE WELL NO COMPLICATION NOTED.V/S STABLE AFEBRILE.SUCTION PROVIDED.REPOSITION FOR COMFORT.FAMILY AT BEDSIDE.REPORT GIVEN TO CHARGE NURSE.
== END 2019-04-12 23:59 ==
LOC: RAD 13:31
PROVIDERS: ATTEND Specialist
DX: N13.2 Hydronephrosis with renal and ureteral calculous obstruction (principal)
CPT/HCPCS: 50432; 88112; 88305; 88312; A4215; J2250; J2310; J3010; 75989; 75989-TC

== ENCOUNTER 2019-06-08 00:01 | Inpatient (IN) | payer MEDICARE, MEDICAID ==
[~2019-06-08] VITALS: Ht 170.2 cm; Wt 72.6 kg
[~2019-06-08 00:01] MED LIST changes: -FENTANYL PF 250MCG/5ML AMPUL IV ONE; -MIDAZOLAM HCL 5MG/ML VIAL 25 MG/5 ML VIAL IV ONE; -NALOXONE PREFILLED SYRINGE 2 MG/2 ML SYRINGE IV ONE
--- NOTE | 2019-06-08 09:11 | NUR ---
Please see resident's previous account [id number] for all assessments and nurses notes. Originally admitted on 10/06/2014; readmission 01/29/2018. Please see resident's previous account [id number] for all assessments and nurses notes. Originally admitted on 08/08/16; readmission 03/23/2019 Addendum: 06/08/19 at 0919 by TAMMY FLEMING RN Wrong entry: Please see resident's previous account [id number] for all assessments and nurses notes. Originally admitted on 10/06/2014; readmission 01/29/2018.
[2019-06-09] MEDS ORDERED: ACETAMINOPHEN 650 MG/20 ML UDC- SA PATIENTS-PAIN ONLY GT PRN (08:30)
[2019-06-09] MEDS ORDERED: HYDROGEN PEROXIDE 480 ML BOTTLE TP PRN (08:30)
[2019-06-09] MEDS ORDERED: LORAZEPAM 1 MG TABLET GT PRN (08:30)
[2019-06-09] MEDS ORDERED: ACETAMINOPHEN 650 MG/20 ML UDC- SA PATIENTS-FEVER ONLY GT PRN (08:30)
[2019-06-09] MEDS ORDERED: ONDANSETRON 4 MG TAB.RAPDIS GT PRN (09:00)
[2019-06-09] MEDS ORDERED: LORAZEPAM INJ 2 MG/ML VIAL IVP PRN (09:00)
[2019-06-09] MEDS: HYDROGEN PEROXIDE 480 ML BOTTLE TP SCH ×2 (09:00→20:42)
[2019-06-09] MEDS ORDERED: DEXTROSE 50%-WATER 50 ML DISP.SYRIN IV PRN (09:00)
[2019-06-09] MEDS ORDERED: BISACODYL SUPP (10 MG) 10 MG/SUPP.RECT SUPP.RECT RC PRN (09:00)
[2019-06-09] MEDS: LEVETIRACETAM SOL (5 ML) 100 MG/ML UDC GT SCH ×2 (09:25→20:22)
[2019-06-09] MEDS: ACIDOPHILUS/BULGARICUS 1 EACH TAB.CHEW GT SCH ×2 (09:25→17:00)
[2019-06-09] MEDS: CALCIUM CARBONATE 500 MG TAB.CHEW GT SCH ×2 (09:25→17:00)
[2019-06-09] MEDS: TRILEPTAL GT SCH ×2 (09:25→20:23)
[2019-06-09] MEDS: FERROUS SULFATE UDC 300 MG/5 ML UDC GT SCH ×2 (09:25→17:00)
[2019-06-09] MEDS: DOCUSATE SODIUM LIQ 100 MG/10 ML UDC GT SCH (09:25)
[2019-06-09] MEDS: MULTIVIT W/MINERALS 1 TAB TABLET GT SCH (09:25)
[2019-06-09] MEDS: SENNOSIDES 8.6 MG TABLET GT SCH ×2 (09:25→20:23)
[2019-06-09] MEDS: HEPARIN SODIUM, PORCINE 5000 UNITS/1 ML VIAL SQ SCH ×2 (09:25→20:23)
[2019-06-09] MEDS: SIMETHICONE SUSP 40 MG/0.6 ML BOTTLE GT SCH ×2 (09:25→20:22)
[2019-06-09] MEDS: VITAMINS A AND D 56.7 GM TUBE TP SCH ×2 (09:26→20:25)
[2019-06-09] MEDS: Z GUARD REMEDY 4 OZ OINT TP SCH ×2 (09:26→20:24)
[2019-06-09] MEDS: METOCLOPRAMIDE HCL 10 MG TABLET GT SCH ×3 (12:29→23:22)
[2019-06-09] MEDS: GABAPENTIN 250 MG/5 ML SOLUTION GT SCH ×2 (12:29→20:23)
[2019-06-09 12:43] VITALS: BP 105/68
[2019-06-09] MEDS: BLOOD SUGAR DIAGNOSTIC 1 EACH STRIP IN SCH ×3 (12:47→23:22)
[2019-06-09] MEDS: INSULIN REGULAR, HUMAN 100 UNIT/ML 3 ML VIAL SQ PRN ×3 (12:48→23:23)
[2019-06-09] MEDS: ALBUTEROL FS 2.5 MG/3 ML VIAL.NEB NEB SCH ×2 (13:40→20:16)
--- NOTE | 2019-06-09 17:01 | NUR ---
RT NOTE RECEIVED PATIENT ON TRACH WITH MECHANICAL VENTILATOR. TRACH IS PATENT AND SECURED. SPARE TRACH AND BVM IS AT BEDSIDE. ALARMS ARE SET AND AUDIBLE. VENTILATOR IS PLUGGED TO RED OUTLET. PATIENT IS IN SYNC AND COMFORTABLE WITH THE VENTILATOR. PATIENT HAS EQUAL CHEST RISE WITH COARSE BILATERAL BREATH SOUNDS. SUCTION SMALL AMOUNT OF GREEN THIN SECRETIONS THROUGH OUT THE DAY. NO SOB NOTED. Addendum: 06/09/19 at 1707 by DAVE HICKMAN RT Amended: Links added.
[2019-06-09] MEDS: GLUCERNA 1.2 1,000 ML BOTTLE GT PRN (18:10)
--- NOTE | 2019-06-09 20:00 | NUR ---
Temp 100.2 no distress noted, cooling measures and Tylenol given for discomfort. will continue to monitor.
[2019-06-09] MEDS: ASCORBIC ACID 500 MG TABLET GT SCH (20:23)
[2019-06-09] MEDS: INSULIN GLARGINE, 100 UNIT/ML CARTRIDGE SQ SCH (21:06)
[2019-06-10] MEDS: ALBUTEROL FS 2.5 MG/3 ML VIAL.NEB NEB SCH ×4 (02:04→20:03)
[2019-06-10] MEDS: METOCLOPRAMIDE HCL 10 MG TABLET GT SCH ×4 (05:18→23:25)
[2019-06-10] MEDS: GABAPENTIN 250 MG/5 ML SOLUTION GT SCH ×3 (05:18→20:57)
[2019-06-10] MEDS: BLOOD SUGAR DIAGNOSTIC 1 EACH STRIP IN SCH ×4 (05:18→23:25)
[2019-06-10] MEDS: OMEPRAZOLE 20 MG CAPSULE.DR GT SCH (05:18)
[2019-06-10] MEDS: INSULIN REGULAR, HUMAN 100 UNIT/ML 3 ML VIAL SQ PRN ×4 (05:20→23:25)
[2019-06-10] MEDS ORDERED: CHLORHEXIDINE GLUCONATE 15 ML UDC MM SCH (06:00)
--- NOTE | 2019-06-10 06:46 | NUR ---
Latest temp 98.4 stable ,no distress noted. will continuer to monitor.
[2019-06-10 07:53] VITALS: BP 120/75
[2019-06-10] MEDS: HYDROGEN PEROXIDE 480 ML BOTTLE TP SCH ×2 (08:23→20:33)
[2019-06-10] MEDS: DOCUSATE SODIUM LIQ 100 MG/10 ML UDC GT SCH (09:46)
[2019-06-10] MEDS: LEVETIRACETAM SOL (5 ML) 100 MG/ML UDC GT SCH ×2 (09:46→20:57)
[2019-06-10] MEDS: FERROUS SULFATE UDC 300 MG/5 ML UDC GT SCH ×2 (09:46→17:35)
[2019-06-10] MEDS: SIMETHICONE SUSP 40 MG/0.6 ML BOTTLE GT SCH ×2 (09:49→20:57)
[2019-06-10] MEDS: ACIDOPHILUS/BULGARICUS 1 EACH TAB.CHEW GT SCH ×2 (09:49→17:35)
[2019-06-10] MEDS: TRILEPTAL GT SCH ×2 (09:49→20:57)
[2019-06-10] MEDS: CALCIUM CARBONATE 500 MG TAB.CHEW GT SCH ×2 (09:49→17:35)
[2019-06-10] MEDS: SENNOSIDES 8.6 MG TABLET GT SCH ×2 (09:49→20:57)
[2019-06-10] MEDS: MULTIVIT W/MINERALS 1 TAB TABLET GT SCH (09:49)
[2019-06-10] MEDS: HEPARIN SODIUM, PORCINE 5000 UNITS/1 ML VIAL SQ SCH ×2 (09:51→20:58)
[2019-06-10] MEDS: Z GUARD REMEDY 4 OZ OINT TP SCH ×2 (09:51→20:58)
[2019-06-10] MEDS: VITAMINS A AND D 56.7 GM TUBE TP SCH ×2 (09:51→20:58)
[2019-06-10] MEDS: GLUCERNA 1.2 1,000 ML BOTTLE GT PRN (12:33)
--- NOTE | 2019-06-10 17:01 | NUR ---
RT NOTE RECEIVED PATIENT ON TRACH WITH MECHANICAL VENTILATOR. TRACH IS PATENT AND SECURED. SPARE TRACH AND BVM IS AT BEDSIDE. ALARMS ARE SET AND AUDIBLE. VENTILATOR IS PLUGGED TO RED OUTLET. PATIENT IS IN SYNC AND COMFORTABLE WITH THE VENTILATOR. PATIENT HAS EQUAL CHEST RISE WITH COARSE BILATERAL BREATH SOUNDS. SUCTION SMALL AMOUNT OF GREEN THIN SECRETIONS THROUGH OUT THE DAY. PATIENT TOLERATED BREATHING TREATMENT WELL. NO SOB NOTED. Addendum: 06/10/19 at 1704 by DAVE HICKMAN RT Amended: Links added.
[2019-06-10 19:40] VITALS: BP 112/69
[2019-06-10] MEDS: ASCORBIC ACID 500 MG TABLET GT SCH (20:57)
--- NOTE | 2019-06-10 21:02 | NUR ---
Seen and examined by Anna Vargas NP, no new orders.
[2019-06-10] MEDS: INSULIN GLARGINE, 100 UNIT/ML CARTRIDGE SQ SCH (22:07)
[2019-06-11] MEDS: ALBUTEROL FS 2.5 MG/3 ML VIAL.NEB NEB SCH ×4 (02:00→19:28)
[2019-06-11] MEDS: OMEPRAZOLE 20 MG CAPSULE.DR GT SCH (05:32)
[2019-06-11] MEDS: GABAPENTIN 250 MG/5 ML SOLUTION GT SCH ×3 (05:32→21:41)
[2019-06-11] MEDS: BLOOD SUGAR DIAGNOSTIC 1 EACH STRIP IN SCH ×4 (05:32→23:36)
[2019-06-11] MEDS: METOCLOPRAMIDE HCL 10 MG TABLET GT SCH ×4 (05:32→23:24)
[2019-06-11] MEDS: INSULIN REGULAR, HUMAN 100 UNIT/ML 3 ML VIAL SQ PRN ×4 (05:35→23:36)
[2019-06-11] MEDS: SIMETHICONE SUSP 40 MG/0.6 ML BOTTLE GT SCH ×2 (09:00→21:41)
[2019-06-11] MEDS: MULTIVIT W/MINERALS 1 TAB TABLET GT SCH (09:00)
[2019-06-11] MEDS: ACIDOPHILUS/BULGARICUS 1 EACH TAB.CHEW GT SCH ×2 (09:00→17:02)
[2019-06-11] MEDS: SENNOSIDES 8.6 MG TABLET GT SCH ×2 (09:00→21:41)
[2019-06-11] MEDS: CALCIUM CARBONATE 500 MG TAB.CHEW GT SCH ×2 (09:00→17:02)
[2019-06-11] MEDS: FERROUS SULFATE UDC 300 MG/5 ML UDC GT SCH ×2 (09:00→17:02)
[2019-06-11] MEDS: HYDROGEN PEROXIDE 480 ML BOTTLE TP SCH ×2 (09:00→19:28)
[2019-06-11] MEDS: LEVETIRACETAM SOL (5 ML) 100 MG/ML UDC GT SCH ×2 (09:00→21:41)
[2019-06-11] MEDS: VITAMINS A AND D 56.7 GM TUBE TP SCH ×2 (09:00→21:42)
[2019-06-11] MEDS: TRILEPTAL GT SCH ×2 (09:00→21:41)
[2019-06-11] MEDS: DOCUSATE SODIUM LIQ 100 MG/10 ML UDC GT SCH (09:00)
[2019-06-11] MEDS: HEPARIN SODIUM, PORCINE 5000 UNITS/1 ML VIAL SQ SCH ×2 (09:00→21:42)
[2019-06-11] MEDS: Z GUARD REMEDY 4 OZ OINT TP SCH ×2 (09:00→21:42)
[2019-06-11] MEDS: GLUCERNA 1.2 1,000 ML BOTTLE GT PRN (10:48)
[2019-06-11 11:28] VITALS: BP 118/63
--- NOTE | 2019-06-11 19:28 | NUR ---
RT NOTE: RECEIVED TRACH PATIENT ON [facility] VENT WITH NOTED SETTINGS PER MD ORDERS. HHN TREATMENT GIVEN AT THIS TIME WITH NO ADVERSE REACTION. TRACH CARE DONE. TRACH IS PATENT AND SECURED. SX DONE PRN. ALARMS ARE ON AND AUDIBLE. VENT IS PLUGGED INTO RED OUTLET WITH AMBU BAG AT BEDSIDE. NO RESP DISTRESS NOTED AT THIS TIME. WILL CONT TO MONITOR PT. Addendum: 06/12/19 at 0310 by QIANA MARY RT Amended: Links added.
[2019-06-11 20:08] VITALS: BP 128/72
[2019-06-11] MEDS: ASCORBIC ACID 500 MG TABLET GT SCH (21:41)
[2019-06-11] MEDS: INSULIN GLARGINE, 100 UNIT/ML CARTRIDGE SQ SCH (21:42)
[2019-06-12] MEDS: ALBUTEROL FS 2.5 MG/3 ML VIAL.NEB NEB SCH ×4 (01:59→19:51)
[2019-06-12] MEDS: OMEPRAZOLE 20 MG CAPSULE.DR GT SCH (05:08)
[2019-06-12] MEDS: GABAPENTIN 250 MG/5 ML SOLUTION GT SCH ×3 (05:08→20:23)
[2019-06-12] MEDS: METOCLOPRAMIDE HCL 10 MG TABLET GT SCH ×4 (05:08→23:23)
[2019-06-12] MEDS: GLUCERNA 1.2 1,000 ML BOTTLE GT PRN ×3 (05:29→23:26)
[2019-06-12] MEDS: BLOOD SUGAR DIAGNOSTIC 1 EACH STRIP IN SCH ×4 (05:52→23:23)
[2019-06-12] MEDS: INSULIN REGULAR, HUMAN 100 UNIT/ML 3 ML VIAL SQ PRN ×4 (05:52→23:25)
[2019-06-12 06:58] VITALS: BP 117/51
[2019-06-12] MEDS: DOCUSATE SODIUM LIQ 100 MG/10 ML UDC GT SCH (09:00)
[2019-06-12] MEDS: TRILEPTAL GT SCH ×2 (09:00→20:24)
[2019-06-12] MEDS: HEPARIN SODIUM, PORCINE 5000 UNITS/1 ML VIAL SQ SCH ×2 (09:00→20:24)
[2019-06-12] MEDS: FERROUS SULFATE UDC 300 MG/5 ML UDC GT SCH ×2 (09:00→17:42)
[2019-06-12] MEDS: SENNOSIDES 8.6 MG TABLET GT SCH ×2 (09:00→20:24)
[2019-06-12] MEDS: VITAMINS A AND D 56.7 GM TUBE TP SCH ×2 (09:00→20:25)
[2019-06-12] MEDS: MULTIVIT W/MINERALS 1 TAB TABLET GT SCH (09:00)
[2019-06-12] MEDS: Z GUARD REMEDY 4 OZ OINT TP SCH ×2 (09:00→20:25)
[2019-06-12] MEDS: CALCIUM CARBONATE 500 MG TAB.CHEW GT SCH ×2 (09:00→17:42)
[2019-06-12] MEDS: LEVETIRACETAM SOL (5 ML) 100 MG/ML UDC GT SCH ×2 (09:00→20:23)
[2019-06-12] MEDS: SIMETHICONE SUSP 40 MG/0.6 ML BOTTLE GT SCH ×2 (09:00→20:23)
[2019-06-12] MEDS: ACIDOPHILUS/BULGARICUS 1 EACH TAB.CHEW GT SCH ×2 (09:00→17:42)
[2019-06-12] MEDS: HYDROGEN PEROXIDE 480 ML BOTTLE TP SCH ×2 (13:57→21:00)
[2019-06-12 20:21] VITALS: BP 138/82
[2019-06-12] MEDS: ASCORBIC ACID 500 MG TABLET GT SCH (20:24)
[2019-06-12] MEDS: INSULIN GLARGINE, 100 UNIT/ML CARTRIDGE SQ SCH (21:27)
[2019-06-13] MEDS: ALBUTEROL FS 2.5 MG/3 ML VIAL.NEB NEB SCH ×4 (01:51→19:32)
[2019-06-13] MEDS: GABAPENTIN 250 MG/5 ML SOLUTION GT SCH ×3 (04:58→21:16)
[2019-06-13] MEDS: INSULIN REGULAR, HUMAN 100 UNIT/ML 3 ML VIAL SQ PRN ×4 (05:02→23:49)
[2019-06-13] MEDS: METOCLOPRAMIDE HCL 10 MG TABLET GT SCH ×4 (05:02→23:30)
[2019-06-13] MEDS: OMEPRAZOLE 20 MG CAPSULE.DR GT SCH (05:02)
[2019-06-13] MEDS: BLOOD SUGAR DIAGNOSTIC 1 EACH STRIP IN SCH ×4 (05:02→23:49)
[2019-06-13 07:37] VITALS: BP 121/72
[2019-06-13] MEDS: HYDROGEN PEROXIDE 480 ML BOTTLE TP SCH ×2 (07:43→19:32)
--- NOTE | 2019-06-13 08:26 | NUR ---
RT NOTE: REC'D TRACH PATIENT ON [facility] VENT WITH NOTED SETTINGS PER MD ORDERS. TRACH CARE DONE. TRACH IS PATENT AND SECURED. ALARMS ARE ON AND AUDIBLE. VENT IS PLUGGED INTO RED OUTLET WITH AMBU BAG AT BEDSIDE. NO RESP DISTRESS NOTED AT THIS TIME. WILL CONT TO MONITOR. Addendum: 06/13/19 at 0827 by MARCO FRANCOIS RT Amended: Links added.
--- NOTE | 2019-06-13 08:35 | NUR ---
STEPHEN called the pt.'s responsible alliance party, Beckie and left a voicemail inviting them to the family support group beign held on 06/15/2019 11 am.
[2019-06-13] MEDS: Z GUARD REMEDY 4 OZ OINT TP SCH ×2 (09:00→21:12)
[2019-06-13] MEDS: CALCIUM CARBONATE 500 MG TAB.CHEW GT SCH ×2 (09:00→17:54)
[2019-06-13] MEDS: DOCUSATE SODIUM LIQ 100 MG/10 ML UDC GT SCH (09:00)
[2019-06-13] MEDS: MULTIVIT W/MINERALS 1 TAB TABLET GT SCH (09:00)
[2019-06-13] MEDS: VITAMINS A AND D 56.7 GM TUBE TP SCH ×2 (09:00→21:12)
[2019-06-13] MEDS: ACIDOPHILUS/BULGARICUS 1 EACH TAB.CHEW GT SCH ×2 (09:00→17:54)
[2019-06-13] MEDS: LEVETIRACETAM SOL (5 ML) 100 MG/ML UDC GT SCH ×2 (09:00→21:08)
[2019-06-13] MEDS: HEPARIN SODIUM, PORCINE 5000 UNITS/1 ML VIAL SQ SCH ×2 (09:00→21:14)
[2019-06-13] MEDS: SENNOSIDES 8.6 MG TABLET GT SCH ×2 (09:00→21:11)
[2019-06-13] MEDS: SIMETHICONE SUSP 40 MG/0.6 ML BOTTLE GT SCH ×2 (09:00→21:08)
[2019-06-13] MEDS: TRILEPTAL GT SCH ×2 (09:00→21:10)
[2019-06-13] MEDS: FERROUS SULFATE UDC 300 MG/5 ML UDC GT SCH ×2 (09:00→17:54)
[2019-06-13 10:26] LABS: BASOPHILS # (AUTO) 0.1 /CMM (0.0-0.2); BASOPHILS % (AUTO) 0.7 % (0.0-2.0); EOSINOPHILS % (AUTO) 6.9 % (0.0-6.0); HEMATOCRIT 24 % (33-45); HEMOGLOBIN 8.2 g/dL (11.5-14.8); LYMPHOCYTES # (AUTO) 3.2 /CMM (0.8-4.8); LYMPHOCYTES % (AUTO) 29.9 % (20.0-44.0); MEAN CORPUSCULAR HGB CONC 35 g/dl (31.0-36.0); MEAN CORPUSCULAR VOLUME 100 fL (82-100); MONOCYTES # (AUTO) 0.9 /CMM (0.1-1.30); MONOCYTES % (AUTO) 8.7 % (2.0-12.0); NEUTROPHILS # (AUTO) 5.8 /CMM (1.8-8.9); NEUTROPHILS % (AUTO) 53.8 % (43.0-81.0); PLATELET COUNT (AUTO) 361 /CMM (150-450); RED BLOOD CELL COUNT(AUTO) 2.35 MIL/uL (4.0-5.2); WHITE BLOOD COUNT (AUTO) 10.8 K/uL (4.3-11.0)
[2019-06-13 10:45] LABS: ALBUMIN 2.8 g/dL (3.4-5.0); BILIRUBIN,TOTAL 0.2 mg/dL (0.2-1.0); CALCIUM, SERUM 10.8 mg/dL (8.5-10.1); CREATININE 2.8 mg/dL (0.6-1.3); MAGNESIUM 2.7 mg/dL (1.8-2.4); PHOSPHORUS 4.1 mg/dL (2.5-4.9); POTASSIUM 3.7 mmol/L (3.5-5.1); TOTAL PROTEIN, SERUM 9.9 g/dL (6.4-8.2)
[2019-06-13 11:02] LABS: EOSINOPHILS % (MANUAL) 11 % (0-4); LYMPHOCYTES % (MANUAL) 26 % (16-48); METAMYELOCYTES % 2 % (0-0); MONOCYTES % (MANUAL) 6 % (0-11.0); MYELOCYTES % 2 % (0-0); NEUTROPHILS % (MANUAL) 53 (42-76)
--- NOTE | 2019-06-13 11:20 | NUR ---
STEPHEN contacted the patient's responsible green party, Beckie Chu [phone] to inform her that new intake paperwork must be signed JOSIAH. Per Beckie, she will come by today to complete the intake paperwork.
--- NOTE | 2019-06-13 15:00 | NUR ---
Intake Paperwork: Municipal Bond Trader met with the resident's sister, Beckie Chu on 06/13/18 to complete initial admission paperwork (Patient Right's Acknowledgement, Documentation of Preferred Intensity of Care, Conditions of Admission, [facility] Agreement, and Voluntary Prior Express Consent form). SW provided patient's family with a copy of the Bill of Rights, patient information guide and [facility] resident and family guidelines. Beckie wishes the resident be Full Code (CPR with maximum treatment). Admission paperwork was placed into the resident's chart. Municipal Bond Trader educated Beckie on advanced health care directive and conservatorship and provided her with informational packets. Resident's sister, Beckie is already the conservator and had provided [facility] with a copy of the paperwork. The patient is not alert and oriented enough to complete Advanced Healthcare Directive. Please see resident's previous account [id number] for all assessments and quarterly information).
--- NOTE | 2019-06-13 19:32 | NUR ---
RT NOTE: RECEIVED TRACH PATIENT ON [facility] VENT WITH NOTED SETTINGS PER MD ORDERS. HHN TREATMENT GIVEN AT THIS TIME WITH NO ADVERSE REACTION NOTED. TRACH CARE DONE. TRACH IS PATENT AND SECURED. SX DONE PRN. ALARMS ARE ON AND AUDIBLE. VENT IS PLUGGED INTO RED OUTLET WITH AMBU BAG AT BEDSIDE. NO RESP DISTRESS NOTED AT THIS TIME. WILL CONT TO MONITOR PT. Addendum: 06/13/19 at 2035 by QIANA MARY RT Amended: Links added.
[2019-06-13 19:47] VITALS: BP 101/63
[2019-06-13] MEDS: ASCORBIC ACID 500 MG TABLET GT SCH (21:11)
[2019-06-13] MEDS: INSULIN GLARGINE, 100 UNIT/ML CARTRIDGE SQ SCH (21:53)
[2019-06-14] MEDS: GLUCERNA 1.2 1,000 ML BOTTLE GT PRN ×2 (00:59→17:49)
[2019-06-14] MEDS: ALBUTEROL FS 2.5 MG/3 ML VIAL.NEB NEB SCH ×4 (01:14→19:16)
[2019-06-14] MEDS: INSULIN REGULAR, HUMAN 100 UNIT/ML 3 ML VIAL SQ PRN ×2 (05:36→12:06)
[2019-06-14] MEDS: BLOOD SUGAR DIAGNOSTIC 1 EACH STRIP IN SCH ×3 (05:36→17:48)
[2019-06-14] MEDS: GABAPENTIN 250 MG/5 ML SOLUTION GT SCH ×3 (05:37→21:21)
[2019-06-14] MEDS: METOCLOPRAMIDE HCL 10 MG TABLET GT SCH ×3 (05:37→17:48)
[2019-06-14] MEDS: OMEPRAZOLE 20 MG CAPSULE.DR GT SCH (05:37)
[2019-06-14 07:20] VITALS: BP 123/57
[2019-06-14] MEDS: FERROUS SULFATE UDC 300 MG/5 ML UDC GT SCH ×2 (08:07→16:12)
[2019-06-14] MEDS: SIMETHICONE SUSP 40 MG/0.6 ML BOTTLE GT SCH ×2 (08:07→21:21)
[2019-06-14] MEDS: LEVETIRACETAM SOL (5 ML) 100 MG/ML UDC GT SCH ×2 (08:07→21:21)
[2019-06-14] MEDS: DOCUSATE SODIUM LIQ 100 MG/10 ML UDC GT SCH (08:07)
[2019-06-14] MEDS: ACIDOPHILUS/BULGARICUS 1 EACH TAB.CHEW GT SCH ×2 (08:07→16:12)
[2019-06-14] MEDS: SENNOSIDES 8.6 MG TABLET GT SCH ×2 (08:12→21:21)
[2019-06-14] MEDS: VITAMINS A AND D 56.7 GM TUBE TP SCH ×2 (08:18→21:22)
[2019-06-14] MEDS: MULTIVIT W/MINERALS 1 TAB TABLET GT SCH (08:18)
[2019-06-14] MEDS: CALCIUM CARBONATE 500 MG TAB.CHEW GT SCH ×2 (08:18→16:12)
[2019-06-14] MEDS: HYDROGEN PEROXIDE 480 ML BOTTLE TP SCH ×3 (08:18→21:21)
[2019-06-14] MEDS: Z GUARD REMEDY 4 OZ OINT TP SCH ×2 (08:18→21:22)
[2019-06-14] MEDS: TRILEPTAL GT SCH ×2 (08:19→21:21)
[2019-06-14] MEDS: HEPARIN SODIUM, PORCINE 5000 UNITS/1 ML VIAL SQ SCH ×2 (08:24→21:22)
--- NOTE | 2019-06-14 09:30 | NUR ---
Seen and examined by Dr. Felix, no new order given.
[2019-06-14] MEDS ORDERED: KETOROLAC TROMETHAMINE INJ 30 MG/ML VIAL ONE (10:05)
[2019-06-14] MEDS ORDERED: ONDANSETRON 4 MG TAB.RAPDIS ONE (10:06)
--- NOTE | 2019-06-14 11:23 | NUR ---
Seen and examined by Dr. Luis, no new order given.
--- NOTE | 2019-06-14 15:18 | NUR ---
RT NOTE: PATIENT RECEIVED TRACHED ON MECHANICAL VENT. ALARMS VERIFIED AND AUDIBLE. SUCTIONED AND LAVAGED MODERATE-LARGE AMOUNT OF THICK ZHANG SECRETIONS. VENT PLUGGED INTO RED OUTLET. AMBU BAG AND TRACH AT [facility].
[2019-06-14 19:42] VITALS: BP 137/70
[2019-06-14] MEDS: ASCORBIC ACID 500 MG TABLET GT SCH (21:21)
[2019-06-14] MEDS: INSULIN GLARGINE, 100 UNIT/ML CARTRIDGE SQ SCH (21:33)
[2019-06-15] MEDS: METOCLOPRAMIDE HCL 10 MG TABLET GT SCH ×5 (00:33→23:48)
[2019-06-15] MEDS: BLOOD SUGAR DIAGNOSTIC 1 EACH STRIP IN SCH ×5 (00:33→23:48)
[2019-06-15] MEDS: INSULIN REGULAR, HUMAN 100 UNIT/ML 3 ML VIAL SQ PRN ×2 (00:34→23:49)
[2019-06-15] MEDS: ALBUTEROL FS 2.5 MG/3 ML VIAL.NEB NEB SCH ×4 (00:35→19:54)
[2019-06-15] MEDS: OMEPRAZOLE 20 MG CAPSULE.DR GT SCH (05:14)
[2019-06-15] MEDS: GABAPENTIN 250 MG/5 ML SOLUTION GT SCH ×3 (05:14→20:58)
[2019-06-15] MEDS: HYDROGEN PEROXIDE 480 ML BOTTLE TP SCH ×2 (07:20→20:53)
[2019-06-15 07:36] VITALS: BP 126/68
[2019-06-15] MEDS: LEVETIRACETAM SOL (5 ML) 100 MG/ML UDC GT SCH ×2 (09:19→20:58)
[2019-06-15] MEDS: FERROUS SULFATE UDC 300 MG/5 ML UDC GT SCH ×2 (09:19→17:00)
[2019-06-15] MEDS: ACIDOPHILUS/BULGARICUS 1 EACH TAB.CHEW GT SCH ×2 (09:19→17:00)
[2019-06-15] MEDS: TRILEPTAL GT SCH ×2 (09:19→20:58)
[2019-06-15] MEDS: DOCUSATE SODIUM LIQ 100 MG/10 ML UDC GT SCH (09:19)
[2019-06-15] MEDS: SIMETHICONE SUSP 40 MG/0.6 ML BOTTLE GT SCH ×2 (09:19→20:58)
[2019-06-15] MEDS: HEPARIN SODIUM, PORCINE 5000 UNITS/1 ML VIAL SQ SCH ×2 (09:20→20:59)
[2019-06-15] MEDS: VITAMINS A AND D 56.7 GM TUBE TP SCH ×2 (09:20→20:59)
[2019-06-15] MEDS: Z GUARD REMEDY 4 OZ OINT TP SCH ×2 (09:20→20:59)
[2019-06-15] MEDS: MULTIVIT W/MINERALS 1 TAB TABLET GT SCH (09:20)
[2019-06-15] MEDS: CALCIUM CARBONATE 500 MG TAB.CHEW GT SCH ×2 (09:20→17:00)
[2019-06-15] MEDS: SENNOSIDES 8.6 MG TABLET GT SCH ×2 (09:20→20:58)
[2019-06-15] MEDS: GLUCERNA 1.2 1,000 ML BOTTLE GT PRN (15:01)
[2019-06-15 19:45] VITALS: BP 108/67
[2019-06-15] MEDS: ASCORBIC ACID 500 MG TABLET GT SCH (20:58)
--- NOTE | 2019-06-15 21:21 | NUR ---
PT RCVD TRACH'D ON MECHANICAL VENT WITH CHARTED SETTINGS. PT APRIL TX WELL. SX DONE. PT TRACH IS PATENT AND SECURE. VENT ALARMS APPEAR TO BE FUNCTIONING PROPERLY. VENT PLUGGED INTO RED OUTLET. AMBU BAG AT BEDSIDE. NO SOB NOTED. Addendum: 06/15/19 at 2123 by MICH AVILA RT Amended: Links added.
[2019-06-15] MEDS: INSULIN GLARGINE, 100 UNIT/ML CARTRIDGE SQ SCH (21:45)
[2019-06-16] MEDS: ALBUTEROL FS 2.5 MG/3 ML VIAL.NEB NEB SCH ×4 (00:37→19:40)
[2019-06-16] MEDS: BLOOD SUGAR DIAGNOSTIC 1 EACH STRIP IN SCH ×4 (05:20→23:22)
[2019-06-16] MEDS: GABAPENTIN 250 MG/5 ML SOLUTION GT SCH ×3 (05:20→21:07)
[2019-06-16] MEDS: OMEPRAZOLE 20 MG CAPSULE.DR GT SCH (05:20)
[2019-06-16] MEDS: METOCLOPRAMIDE HCL 10 MG TABLET GT SCH ×4 (05:20→23:22)
[2019-06-16] MEDS: INSULIN REGULAR, HUMAN 100 UNIT/ML 3 ML VIAL SQ PRN ×3 (05:22→23:22)
[2019-06-16] MEDS: GLUCERNA 1.2 1,000 ML BOTTLE GT PRN (05:49)
[2019-06-16 07:29] VITALS: BP 102/60
[2019-06-16] MEDS: LEVETIRACETAM SOL (5 ML) 100 MG/ML UDC GT SCH ×2 (09:51→21:07)
[2019-06-16] MEDS: Z GUARD REMEDY 4 OZ OINT TP SCH ×2 (09:51→21:08)
[2019-06-16] MEDS: TRILEPTAL GT SCH ×2 (09:51→21:07)
[2019-06-16] MEDS: MULTIVIT W/MINERALS 1 TAB TABLET GT SCH (09:51)
[2019-06-16] MEDS: FERROUS SULFATE UDC 300 MG/5 ML UDC GT SCH ×2 (09:51→17:37)
[2019-06-16] MEDS: DOCUSATE SODIUM LIQ 100 MG/10 ML UDC GT SCH (09:51)
[2019-06-16] MEDS: CALCIUM CARBONATE 500 MG TAB.CHEW GT SCH ×2 (09:51→17:37)
[2019-06-16] MEDS: SIMETHICONE SUSP 40 MG/0.6 ML BOTTLE GT SCH ×2 (09:51→21:07)
[2019-06-16] MEDS: SENNOSIDES 8.6 MG TABLET GT SCH ×2 (09:51→21:07)
[2019-06-16] MEDS: ACIDOPHILUS/BULGARICUS 1 EACH TAB.CHEW GT SCH ×2 (09:51→17:37)
[2019-06-16] MEDS: HEPARIN SODIUM, PORCINE 5000 UNITS/1 ML VIAL SQ SCH ×2 (09:51→21:07)
[2019-06-16] MEDS: VITAMINS A AND D 56.7 GM TUBE TP SCH ×2 (09:52→21:08)
[2019-06-16] MEDS: HYDROGEN PEROXIDE 480 ML BOTTLE TP SCH ×2 (11:53→21:00)
--- NOTE | 2019-06-16 15:35 | NUR ---
RT NOTE: RECEIVED PATIENT TRACHED ON MECHANICAL VENT. ALARMS VERIFIED AND AUDIBLE. SUCTIONED AND LAVAGED MODERATE -LARGE AMOUNTS OF THICK ZHANG SECRETIONS THROUGHOUT THE SHIFT. VENT PLUGGED INTO RED OUTLET. AMBU BAG AND NEW TRACH AT [facility].
--- NOTE | 2019-06-16 19:41 | NUR ---
RT NOTES PT RECEIVED TRACHED ON [facility] VENT ON CHARTED SETTINGS. NO SIGNS OF RESP DISTRESS/SOB NOTED AT THIS TIME. AIRWAY PATENT AND SECURED. PHLEBOTOMY TECHNICIAN DONE. PT SUCTIONED. HHN TREATMENT GIVEN. NO ADVERSE REACTIONS NOTED. ALARMS SET AND AUDIBLE. AMBUBAG AND SPARE TRACH PRESENT. VENT CONNECTED TO RED OUTLET. WILL CONT TO MONITOR. Addendum: 06/16/19 at 2339 by EDDI GUTIÉRREZ RT Amended: Links added.
[2019-06-16 19:51] VITALS: BP 126/86
--- NOTE | 2019-06-16 20:57 | NUR ---
Seen and examined by NAN Vargas no new orders.
[2019-06-16] MEDS: ASCORBIC ACID 500 MG TABLET GT SCH (21:07)
[2019-06-16] MEDS: INSULIN GLARGINE, 100 UNIT/ML CARTRIDGE SQ SCH (21:12)
[2019-06-17] MEDS: ALBUTEROL FS 2.5 MG/3 ML VIAL.NEB NEB SCH ×4 (01:20→19:39)
[2019-06-17] MEDS: METOCLOPRAMIDE HCL 10 MG TABLET GT SCH ×4 (05:37→23:45)
[2019-06-17] MEDS: OMEPRAZOLE 20 MG CAPSULE.DR GT SCH (05:37)
[2019-06-17] MEDS: BLOOD SUGAR DIAGNOSTIC 1 EACH STRIP IN SCH ×4 (05:37→23:45)
[2019-06-17] MEDS: GABAPENTIN 250 MG/5 ML SOLUTION GT SCH ×3 (05:37→20:38)
[2019-06-17] MEDS: GLUCERNA 1.2 1,000 ML BOTTLE GT PRN ×2 (05:38→20:41)
[2019-06-17] MEDS: INSULIN REGULAR, HUMAN 100 UNIT/ML 3 ML VIAL SQ PRN ×3 (05:39→23:46)
[2019-06-17 07:25] VITALS: BP 110/61
[2019-06-17] MEDS: FERROUS SULFATE UDC 300 MG/5 ML UDC GT SCH ×2 (09:00→17:40)
[2019-06-17] MEDS: LEVETIRACETAM SOL (5 ML) 100 MG/ML UDC GT SCH ×2 (09:00→20:38)
[2019-06-17] MEDS: Z GUARD REMEDY 4 OZ OINT TP SCH ×2 (09:00→20:39)
[2019-06-17] MEDS: CALCIUM CARBONATE 500 MG TAB.CHEW GT SCH ×2 (09:00→17:40)
[2019-06-17] MEDS: HEPARIN SODIUM, PORCINE 5000 UNITS/1 ML VIAL SQ SCH ×2 (09:00→20:39)
[2019-06-17] MEDS: DOCUSATE SODIUM LIQ 100 MG/10 ML UDC GT SCH (09:00)
[2019-06-17] MEDS: HYDROGEN PEROXIDE 480 ML BOTTLE TP SCH ×2 (09:00→20:11)
[2019-06-17] MEDS: ACIDOPHILUS/BULGARICUS 1 EACH TAB.CHEW GT SCH ×2 (09:00→17:40)
[2019-06-17] MEDS: SIMETHICONE SUSP 40 MG/0.6 ML BOTTLE GT SCH ×2 (09:00→20:38)
[2019-06-17] MEDS: VITAMINS A AND D 56.7 GM TUBE TP SCH ×2 (09:00→20:39)
[2019-06-17] MEDS: SENNOSIDES 8.6 MG TABLET GT SCH ×2 (09:00→20:39)
[2019-06-17] MEDS: TRILEPTAL GT SCH ×2 (09:00→20:39)
[2019-06-17] MEDS: MULTIVIT W/MINERALS 1 TAB TABLET GT SCH (09:00)
--- NOTE | 2019-06-17 16:11 | NUR ---
INTERDISCIPLINARY PLAN OF CARE CONFERENCE was held today. The patients conservator, Beckie Chu [phone] was not able to attend or participate via phone conference. Charge discussed the pt. is on isolation for ESBL of urine and MRSA of Nares; Nephrostomy site doing well and 06/10/2019 rash near Nephrostomy site Tx: Triam triamcinolone 0.1% cream s shift x [address] Felix and Interdisciplinary team discussed the plan of care in detail. Current orders as well as treatments and medications were reviewed. Please see other disciplines IDT notes for further details.
[2019-06-17 20:17] VITALS: BP 126/67
--- NOTE | 2019-06-17 20:35 | NUR ---
RT NOTE PT RECEIVED TRACHED ON MECHANICAL VENTILATION. AMBU BAG/BACK UP TRACH @ BEDSIDE. TX GIVEN, NO ADVERSE REACTIONS NOTED. SX DONE, TRACH SECURED AND PATENT. ALARMS ON AND AUDIBLE. NO SOB NOTED. WILL MONITOR T/O SHIFT. Addendum: 06/17/19 at 2036 by BRIEN NEAL RT Amended: Links added.
[2019-06-17] MEDS: ASCORBIC ACID 500 MG TABLET GT SCH (20:39)
[2019-06-17] MEDS: INSULIN GLARGINE, 100 UNIT/ML CARTRIDGE SQ SCH (21:43)
[2019-06-18] MEDS: ALBUTEROL FS 2.5 MG/3 ML VIAL.NEB NEB SCH ×4 (00:53→19:27)
[2019-06-18] MEDS: OMEPRAZOLE 20 MG CAPSULE.DR GT SCH (05:19)
[2019-06-18] MEDS: METOCLOPRAMIDE HCL 10 MG TABLET GT SCH ×4 (05:19→23:13)
[2019-06-18] MEDS: BLOOD SUGAR DIAGNOSTIC 1 EACH STRIP IN SCH ×4 (05:19→23:13)
[2019-06-18] MEDS: GABAPENTIN 250 MG/5 ML SOLUTION GT SCH ×3 (05:19→21:43)
[2019-06-18] MEDS: INSULIN REGULAR, HUMAN 100 UNIT/ML 3 ML VIAL SQ PRN ×3 (05:20→23:13)
[2019-06-18 07:40] VITALS: BP 125/71
--- NOTE | 2019-06-18 08:27 | NUR ---
RT pt received on current vent settings. trached with shiley 8 xlt. trach secure. vent plugged in to red outlet. alarms on and audible. ambu bag at head of bed. hob at 30 degrees. spare trach at head of bed. no current respiratory distress. will continue to monitor. Addendum: 06/18/19 at 1740 by BELKIS BETHEA RT Amended: Links added.
[2019-06-18] MEDS: ACIDOPHILUS/BULGARICUS 1 EACH TAB.CHEW GT SCH ×2 (09:00→17:55)
[2019-06-18] MEDS: LEVETIRACETAM SOL (5 ML) 100 MG/ML UDC GT SCH ×2 (09:00→21:43)
[2019-06-18] MEDS: SENNOSIDES 8.6 MG TABLET GT SCH ×2 (09:00→21:43)
[2019-06-18] MEDS: MULTIVIT W/MINERALS 1 TAB TABLET GT SCH (09:00)
[2019-06-18] MEDS: SIMETHICONE SUSP 40 MG/0.6 ML BOTTLE GT SCH ×2 (09:00→21:43)
[2019-06-18] MEDS: VITAMINS A AND D 56.7 GM TUBE TP SCH ×2 (09:00→21:44)
[2019-06-18] MEDS: DOCUSATE SODIUM LIQ 100 MG/10 ML UDC GT SCH (09:00)
[2019-06-18] MEDS: FERROUS SULFATE UDC 300 MG/5 ML UDC GT SCH ×2 (09:00→17:55)
[2019-06-18] MEDS: Z GUARD REMEDY 4 OZ OINT TP SCH ×2 (09:00→21:44)
[2019-06-18] MEDS: TRILEPTAL GT SCH ×2 (09:00→21:43)
[2019-06-18] MEDS: HEPARIN SODIUM, PORCINE 5000 UNITS/1 ML VIAL SQ SCH ×2 (09:00→21:44)
[2019-06-18] MEDS: CALCIUM CARBONATE 500 MG TAB.CHEW GT SCH ×2 (09:00→17:55)
[2019-06-18] MEDS: HYDROGEN PEROXIDE 480 ML BOTTLE TP SCH ×2 (09:00→21:00)
[2019-06-18 21:00] VITALS: BP 103/56
[2019-06-18] MEDS: ASCORBIC ACID 500 MG TABLET GT SCH (21:43)
[2019-06-18] MEDS: INSULIN GLARGINE, 100 UNIT/ML CARTRIDGE SQ SCH (21:46)
[2019-06-19] MEDS: ALBUTEROL FS 2.5 MG/3 ML VIAL.NEB NEB SCH ×4 (01:29→19:09)
[2019-06-19] MEDS: GABAPENTIN 250 MG/5 ML SOLUTION GT SCH ×3 (04:59→21:25)
[2019-06-19] MEDS: INSULIN REGULAR, HUMAN 100 UNIT/ML 3 ML VIAL SQ PRN ×4 (05:02→23:22)
[2019-06-19] MEDS: OMEPRAZOLE 20 MG CAPSULE.DR GT SCH (05:02)
[2019-06-19] MEDS: METOCLOPRAMIDE HCL 10 MG TABLET GT SCH ×4 (05:02→23:22)
[2019-06-19] MEDS: BLOOD SUGAR DIAGNOSTIC 1 EACH STRIP IN SCH ×4 (05:02→23:22)
[2019-06-19 08:05] VITALS: BP 140/62
[2019-06-19] MEDS: HYDROGEN PEROXIDE 480 ML BOTTLE TP SCH ×2 (09:00→21:00)
[2019-06-19] MEDS: DOCUSATE SODIUM LIQ 100 MG/10 ML UDC GT SCH (09:29)
[2019-06-19] MEDS: FERROUS SULFATE UDC 300 MG/5 ML UDC GT SCH ×2 (09:29→17:46)
[2019-06-19] MEDS: SIMETHICONE SUSP 40 MG/0.6 ML BOTTLE GT SCH ×2 (09:30→21:25)
[2019-06-19] MEDS: ACIDOPHILUS/BULGARICUS 1 EACH TAB.CHEW GT SCH ×2 (09:30→17:46)
[2019-06-19] MEDS: LEVETIRACETAM SOL (5 ML) 100 MG/ML UDC GT SCH ×2 (09:30→21:25)
[2019-06-19] MEDS: TRILEPTAL GT SCH ×2 (09:33→21:25)
[2019-06-19] MEDS: CALCIUM CARBONATE 500 MG TAB.CHEW GT SCH ×2 (09:33→17:46)
[2019-06-19] MEDS: SENNOSIDES 8.6 MG TABLET GT SCH ×2 (09:33→21:25)
[2019-06-19] MEDS: MULTIVIT W/MINERALS 1 TAB TABLET GT SCH (09:33)
[2019-06-19] MEDS: HEPARIN SODIUM, PORCINE 5000 UNITS/1 ML VIAL SQ SCH ×2 (09:35→21:26)
[2019-06-19] MEDS: VITAMINS A AND D 56.7 GM TUBE TP SCH ×2 (09:35→21:26)
[2019-06-19] MEDS: Z GUARD REMEDY 4 OZ OINT TP SCH ×2 (09:35→21:26)
--- NOTE | 2019-06-19 11:00 | NUR ---
Seen and examined by Dr. Luis, no new order given. Resident stable, afebrile. No s/s of distress or discomfort. Will continue to monitor.
[2019-06-19] MEDS: GLUCERNA 1.2 1,000 ML BOTTLE GT PRN (11:51)
[2019-06-19 21:07] VITALS: BP 142/72
[2019-06-19] MEDS: ASCORBIC ACID 500 MG TABLET GT SCH (21:26)
[2019-06-19] MEDS: INSULIN GLARGINE, 100 UNIT/ML CARTRIDGE SQ SCH (21:27)
[2019-06-20] MEDS: ALBUTEROL FS 2.5 MG/3 ML VIAL.NEB NEB SCH ×4 (01:23→19:32)
[2019-06-20] MEDS: METOCLOPRAMIDE HCL 10 MG TABLET GT SCH ×4 (05:05→23:11)
[2019-06-20] MEDS: OMEPRAZOLE 20 MG CAPSULE.DR GT SCH (05:05)
[2019-06-20] MEDS: GABAPENTIN 250 MG/5 ML SOLUTION GT SCH ×3 (05:05→20:03)
[2019-06-20] MEDS: INSULIN REGULAR, HUMAN 100 UNIT/ML 3 ML VIAL SQ PRN ×4 (05:20→23:12)
[2019-06-20] MEDS: BLOOD SUGAR DIAGNOSTIC 1 EACH STRIP IN SCH ×4 (05:20→23:11)
[2019-06-20] MEDS: HYDROGEN PEROXIDE 480 ML BOTTLE TP SCH ×2 (07:28→21:00)
[2019-06-20] MEDS: SIMETHICONE SUSP 40 MG/0.6 ML BOTTLE GT SCH ×2 (09:39→20:03)
[2019-06-20] MEDS: DOCUSATE SODIUM LIQ 100 MG/10 ML UDC GT SCH (09:39)
[2019-06-20] MEDS: ACIDOPHILUS/BULGARICUS 1 EACH TAB.CHEW GT SCH ×2 (09:39→17:49)
[2019-06-20] MEDS: FERROUS SULFATE UDC 300 MG/5 ML UDC GT SCH ×2 (09:39→17:49)
[2019-06-20] MEDS: LEVETIRACETAM SOL (5 ML) 100 MG/ML UDC GT SCH ×2 (09:39→20:02)
[2019-06-20] MEDS: TRILEPTAL GT SCH ×2 (09:40→20:03)
[2019-06-20] MEDS: SENNOSIDES 8.6 MG TABLET GT SCH ×2 (09:40→20:03)
[2019-06-20] MEDS: CALCIUM CARBONATE 500 MG TAB.CHEW GT SCH ×2 (09:40→17:49)
[2019-06-20] MEDS: MULTIVIT W/MINERALS 1 TAB TABLET GT SCH (09:40)
[2019-06-20] MEDS: VITAMINS A AND D 56.7 GM TUBE TP SCH ×2 (09:45→20:04)
[2019-06-20] MEDS: Z GUARD REMEDY 4 OZ OINT TP SCH ×2 (09:45→20:04)
[2019-06-20] MEDS: HEPARIN SODIUM, PORCINE 5000 UNITS/1 ML VIAL SQ SCH ×2 (09:45→20:03)
[2019-06-20 11:10] VITALS: BP 110/64
[2019-06-20] MEDS: GLUCERNA 1.2 1,000 ML BOTTLE GT PRN (13:12)
[2019-06-20 19:58] VITALS: BP 136/74
[2019-06-20] MEDS: ASCORBIC ACID 500 MG TABLET GT SCH (20:03)
[2019-06-20] MEDS: INSULIN GLARGINE, 100 UNIT/ML CARTRIDGE SQ SCH (21:17)
[2019-06-21] MEDS: ALBUTEROL FS 2.5 MG/3 ML VIAL.NEB NEB SCH ×4 (00:33→19:41)
[2019-06-21] MEDS: OMEPRAZOLE 20 MG CAPSULE.DR GT SCH (05:08)
[2019-06-21] MEDS: METOCLOPRAMIDE HCL 10 MG TABLET GT SCH ×4 (05:08→23:21)
[2019-06-21] MEDS: GABAPENTIN 250 MG/5 ML SOLUTION GT SCH ×3 (05:08→20:40)
[2019-06-21] MEDS: BLOOD SUGAR DIAGNOSTIC 1 EACH STRIP IN SCH ×4 (05:36→23:21)
[2019-06-21] MEDS: INSULIN REGULAR, HUMAN 100 UNIT/ML 3 ML VIAL SQ PRN ×4 (05:37→23:22)
[2019-06-21 07:44] LABS: BASOPHILS # (AUTO) 0.1 /CMM (0.0-0.2); BASOPHILS % (AUTO) 0.7 % (0.0-2.0); EOSINOPHILS % (AUTO) 6.1 % (0.0-6.0); HEMATOCRIT 24 % (33-45); HEMOGLOBIN 8.6 g/dL (11.5-14.8); LYMPHOCYTES # (AUTO) 2.7 /CMM (0.8-4.8); LYMPHOCYTES % (AUTO) 28.2 % (20.0-44.0); MEAN CORPUSCULAR HGB CONC 35 g/dl (31.0-36.0); MEAN CORPUSCULAR VOLUME 100 fL (82-100); MONOCYTES # (AUTO) 0.7 /CMM (0.1-1.30); MONOCYTES % (AUTO) 7.3 % (2.0-12.0); NEUTROPHILS # (AUTO) 5.6 /CMM (1.8-8.9); NEUTROPHILS % (AUTO) 57.7 % (43.0-81.0); PLATELET COUNT (AUTO) 391 /CMM (150-450); RED BLOOD CELL COUNT(AUTO) 2.43 MIL/uL (4.0-5.2); WHITE BLOOD COUNT (AUTO) 9.7 K/uL (4.3-11.0)
[2019-06-21 08:06] LABS: CALCIUM, SERUM 11.3 mg/dL (8.5-10.1); CREATININE 2.6 mg/dL (0.6-1.3); MAGNESIUM 2.7 mg/dL (1.8-2.4); PHOSPHORUS 4.4 mg/dL (2.5-4.9); POTASSIUM 3.6 mmol/L (3.5-5.1)
[2019-06-21 08:35] LABS: IRON, SERUM 71 ug/dl (50-175); TOTAL IRON BINDING CAPACITY 159 ug/dl (250-450)
[2019-06-21] MEDS: HYDROGEN PEROXIDE 480 ML BOTTLE TP SCH ×2 (09:00→20:17)
--- NOTE | 2019-06-21 09:30 | NUR ---
Seen by Dr Felix. Relayed lab results to him.
[2019-06-21] MEDS: DOCUSATE SODIUM LIQ 100 MG/10 ML UDC GT SCH (09:34)
[2019-06-21] MEDS: MULTIVIT W/MINERALS 1 TAB TABLET GT SCH (09:34)
[2019-06-21] MEDS: LEVETIRACETAM SOL (5 ML) 100 MG/ML UDC GT SCH ×2 (09:34→20:40)
[2019-06-21] MEDS: CALCIUM CARBONATE 500 MG TAB.CHEW GT SCH ×2 (09:34→16:44)
[2019-06-21] MEDS: SIMETHICONE SUSP 40 MG/0.6 ML BOTTLE GT SCH ×2 (09:34→20:40)
[2019-06-21] MEDS: TRILEPTAL GT SCH ×2 (09:34→20:40)
[2019-06-21] MEDS: FERROUS SULFATE UDC 300 MG/5 ML UDC GT SCH ×2 (09:34→16:44)
[2019-06-21] MEDS: ACIDOPHILUS/BULGARICUS 1 EACH TAB.CHEW GT SCH ×2 (09:34→16:44)
[2019-06-21] MEDS: SENNOSIDES 8.6 MG TABLET GT SCH ×2 (09:34→20:40)
[2019-06-21] MEDS: Z GUARD REMEDY 4 OZ OINT TP SCH ×2 (09:35→20:41)
[2019-06-21] MEDS: VITAMINS A AND D 56.7 GM TUBE TP SCH ×2 (09:35→20:41)
[2019-06-21] MEDS: HEPARIN SODIUM, PORCINE 5000 UNITS/1 ML VIAL SQ SCH ×2 (09:35→20:41)
[2019-06-21 09:54] VITALS: BP 121/75
--- NOTE | 2019-06-21 17:31 | NUR ---
RT NOTE: REC'D TRACH PATIENT ON [facility] VENT WITH NOTED SETTINGS PER MD ORDERS. TRACH CARE DONE. TRACH IS PATENT AND SECURED. ALARMS ARE ON AND AUDIBLE. VENT IS PLUGGED INTO RED OUTLET WITH AMBU BAG AT BEDSIDE. NO RESP DISTRESS NOTED THROUGHOUT SHIFT. TRACH TUBE CHANGE WAS NOT PERFORMED DUE TO NEW SHILEY 8XLT PROXIMAL NOT AVAILABLE. CAP INSPECTORBRIANNA MATA. Addendum: 06/21/19 at 1732 by MARCO FRANCOIS RT Amended: Links added.
[2019-06-21] MEDS: GLUCERNA 1.2 1,000 ML BOTTLE GT PRN (18:52)
--- NOTE | 2019-06-21 20:21 | NUR ---
PT RCVD TRACH'D ON MECHANICAL VENT WITH CHARTED SETTINGS. PT APRIL TX WELL. SX DONE. PT TRACH IS PATENT AND SECURE. VENT ALARMS APPEAR TO BE FUNCTIONING PROPERLY. VENT PLUGGED INTO RED OUTLET. AMBU BAG AT BEDSIDE. NO SOB NOTED. Addendum: 06/21/19 at 2021 by MICH AVILA RT Amended: Links added.
[2019-06-21 20:35] VITALS: BP 139/79
[2019-06-21] MEDS: ASCORBIC ACID 500 MG TABLET GT SCH (20:40)
[2019-06-21] MEDS: INSULIN GLARGINE, 100 UNIT/ML CARTRIDGE SQ SCH (21:41)
[2019-06-22] MEDS: ALBUTEROL FS 2.5 MG/3 ML VIAL.NEB NEB SCH ×4 (00:33→19:34)
[2019-06-22] MEDS: OMEPRAZOLE 20 MG CAPSULE.DR GT SCH (05:08)
[2019-06-22] MEDS: METOCLOPRAMIDE HCL 10 MG TABLET GT SCH ×4 (05:08→23:51)
[2019-06-22] MEDS: GABAPENTIN 250 MG/5 ML SOLUTION GT SCH ×3 (05:08→21:00)
[2019-06-22] MEDS: BLOOD SUGAR DIAGNOSTIC 1 EACH STRIP IN SCH ×4 (05:50→23:51)
[2019-06-22] MEDS: INSULIN REGULAR, HUMAN 100 UNIT/ML 3 ML VIAL SQ PRN ×3 (05:51→23:52)
[2019-06-22] MEDS: HYDROGEN PEROXIDE 480 ML BOTTLE TP SCH ×2 (07:32→20:09)
[2019-06-22 07:42] VITALS: BP 103/62
[2019-06-22] MEDS: FERROUS SULFATE UDC 300 MG/5 ML UDC GT SCH ×2 (09:46→17:21)
[2019-06-22] MEDS: DOCUSATE SODIUM LIQ 100 MG/10 ML UDC GT SCH (09:46)
[2019-06-22] MEDS: ACIDOPHILUS/BULGARICUS 1 EACH TAB.CHEW GT SCH ×2 (09:46→17:21)
[2019-06-22] MEDS: SIMETHICONE SUSP 40 MG/0.6 ML BOTTLE GT SCH ×2 (09:46→20:59)
[2019-06-22] MEDS: LEVETIRACETAM SOL (5 ML) 100 MG/ML UDC GT SCH ×2 (09:46→20:59)
[2019-06-22] MEDS: MULTIVIT W/MINERALS 1 TAB TABLET GT SCH (09:48)
[2019-06-22] MEDS: TRILEPTAL GT SCH ×2 (09:48→21:07)
[2019-06-22] MEDS: CALCIUM CARBONATE 500 MG TAB.CHEW GT SCH ×2 (09:48→17:21)
[2019-06-22] MEDS: SENNOSIDES 8.6 MG TABLET GT SCH ×2 (09:48→21:07)
[2019-06-22] MEDS: VITAMINS A AND D 56.7 GM TUBE TP SCH ×2 (09:49→21:39)
[2019-06-22] MEDS: Z GUARD REMEDY 4 OZ OINT TP SCH ×2 (09:49→21:39)
[2019-06-22] MEDS: HEPARIN SODIUM, PORCINE 5000 UNITS/1 ML VIAL SQ SCH ×2 (09:49→21:23)
[2019-06-22] MEDS: GLUCERNA 1.2 1,000 ML BOTTLE GT PRN (17:22)
[2019-06-22 20:14] VITALS: BP 96/56
--- NOTE | 2019-06-22 20:17 | NUR ---
PT RCVD TRACH'D ON MECHANICAL VENT WITH CHARTED SETTINGS. PT APRIL TX WELL. SX DONE. PT TRACH IS PATENT AND SECURE. VENT ALARMS APPEAR TO BE FUNCTIONING PROPERLY. VENT PLUGGED INTO RED OUTLET. AMBU BAG AT BEDSIDE. NO SOB NOTED. Addendum: 06/22/19 at 2017 by MICH AVILA RT Amended: Links added.
[2019-06-22] MEDS: ASCORBIC ACID 500 MG TABLET GT SCH (21:07)
[2019-06-22] MEDS: INSULIN GLARGINE, 100 UNIT/ML CARTRIDGE SQ SCH (21:36)
[2019-06-23] MEDS: ALBUTEROL FS 2.5 MG/3 ML VIAL.NEB NEB SCH ×4 (01:15→19:40)
[2019-06-23] MEDS: GABAPENTIN 250 MG/5 ML SOLUTION GT SCH ×3 (05:05→20:29)
[2019-06-23] MEDS: METOCLOPRAMIDE HCL 10 MG TABLET GT SCH ×4 (05:27→23:17)
[2019-06-23] MEDS: OMEPRAZOLE 20 MG CAPSULE.DR GT SCH (05:27)
[2019-06-23] MEDS: BLOOD SUGAR DIAGNOSTIC 1 EACH STRIP IN SCH ×4 (05:50→23:17)
[2019-06-23] MEDS: INSULIN REGULAR, HUMAN 100 UNIT/ML 3 ML VIAL SQ PRN ×3 (05:51→23:17)
[2019-06-23] MEDS: GLUCERNA 1.2 1,000 ML BOTTLE GT PRN (06:17)
[2019-06-23 07:26] VITALS: BP 124/62
[2019-06-23] MEDS: DOCUSATE SODIUM LIQ 100 MG/10 ML UDC GT SCH (08:20)
[2019-06-23] MEDS: FERROUS SULFATE UDC 300 MG/5 ML UDC GT SCH ×2 (08:20→17:31)
[2019-06-23] MEDS: CALCIUM CARBONATE 500 MG TAB.CHEW GT SCH ×2 (08:20→17:31)
[2019-06-23] MEDS: HEPARIN SODIUM, PORCINE 5000 UNITS/1 ML VIAL SQ SCH ×2 (08:20→20:30)
[2019-06-23] MEDS: MULTIVIT W/MINERALS 1 TAB TABLET GT SCH (08:20)
[2019-06-23] MEDS: LEVETIRACETAM SOL (5 ML) 100 MG/ML UDC GT SCH ×2 (08:20→20:29)
[2019-06-23] MEDS: TRILEPTAL GT SCH ×2 (08:20→20:29)
[2019-06-23] MEDS: SENNOSIDES 8.6 MG TABLET GT SCH ×2 (08:20→20:29)
[2019-06-23] MEDS: SIMETHICONE SUSP 40 MG/0.6 ML BOTTLE GT SCH ×2 (08:20→20:29)
[2019-06-23] MEDS: ACIDOPHILUS/BULGARICUS 1 EACH TAB.CHEW GT SCH ×2 (08:20→17:31)
[2019-06-23] MEDS: VITAMINS A AND D 56.7 GM TUBE TP SCH ×2 (08:51→20:30)
[2019-06-23] MEDS: Z GUARD REMEDY 4 OZ OINT TP SCH ×2 (08:51→20:30)
[2019-06-23] MEDS: HYDROGEN PEROXIDE 480 ML BOTTLE TP SCH ×2 (09:00→21:00)
--- NOTE | 2019-06-23 11:24 | NUR ---
RT PT RECEIVED ON CURRENT VENT SETTINGS. TRACHED WITH SHILEY 8XLT. VENT PLUGGED IN TO RED OUTLET. AMBU BAG AT HEAD OF BED. SPARE TRACH AT HEAD OF BED. HOB AT 30 DEGREES. NO APPARENT RESPIRATORY DISTRESS. WILL CONTINUE TO MONITOR. Addendum: 06/23/19 at 1124 by BELKIS BETHEA RT Amended: Links added.
[2019-06-23 19:40] VITALS: BP 120/76
--- NOTE | 2019-06-23 19:41 | NUR ---
RT NOTES PT RECEIVED TRACHED ON [facility] VENT ON CHARTED SETTINGS. NO SIGNS OF RESP DISTRESS/SOB NOTED AT THIS TIME. AIRWAY PATENT AND SECURED. GREY PERCHER DONE. PT SUCTIONED. HHN TREATMENT GIVEN. NO ADVERSE REACTIONS NOTED. ALARMS SET AND AUDIBLE. AMBUBAG AND SPARE TRACH PRESENT. VENT CONNECTED TO RED OUTLET. WILL CONT TO MONITOR. Addendum: 06/24/19 at 0320 by EDDI GUTIÉRREZ RT Amended: Links added.
[2019-06-23] MEDS: ASCORBIC ACID 500 MG TABLET GT SCH (20:29)
[2019-06-23] MEDS: INSULIN GLARGINE, 100 UNIT/ML CARTRIDGE SQ SCH (21:00)
[2019-06-23] MEDS: MAGNESIUM HYDROXIDE 30 ML UDC GT PRN (23:17)
[2019-06-24] MEDS: ALBUTEROL FS 2.5 MG/3 ML VIAL.NEB NEB SCH ×4 (01:43→19:38)
[2019-06-24] MEDS: METOCLOPRAMIDE HCL 10 MG TABLET GT SCH ×4 (05:02→23:13)
[2019-06-24] MEDS: GABAPENTIN 250 MG/5 ML SOLUTION GT SCH ×3 (05:02→20:50)
[2019-06-24] MEDS: OMEPRAZOLE 20 MG CAPSULE.DR GT SCH (05:02)
[2019-06-24] MEDS: GLUCERNA 1.2 1,000 ML BOTTLE GT PRN ×2 (05:03→23:15)
[2019-06-24] MEDS: BLOOD SUGAR DIAGNOSTIC 1 EACH STRIP IN SCH ×4 (05:39→23:14)
[2019-06-24] MEDS: INSULIN REGULAR, HUMAN 100 UNIT/ML 3 ML VIAL SQ PRN ×4 (05:40→23:14)
[2019-06-24 07:24] VITALS: BP 128/75
[2019-06-24] MEDS: HYDROGEN PEROXIDE 480 ML BOTTLE TP SCH ×2 (08:10→21:27)
--- NOTE | 2019-06-24 08:42 | NUR ---
PT Received on vent support via trach on the following settings: AC16, 550, 30% PEEP 5. Vent is plugged into with red outlet with alarm on and functioning. BS coarse rhonchi, suctioned moderate amount pale yellow secretions. Ambubag and trach at bedside Addendum: 06/24/19 at 0843 by ALIA TEIXEIRA RT Amended: Links added.
[2019-06-24] MEDS: Z GUARD REMEDY 4 OZ OINT TP SCH ×2 (09:00→20:51)
[2019-06-24] MEDS: VITAMINS A AND D 56.7 GM TUBE TP SCH ×2 (09:00→20:51)
[2019-06-24] MEDS: LEVETIRACETAM SOL (5 ML) 100 MG/ML UDC GT SCH ×2 (09:57→20:50)
[2019-06-24] MEDS: ACIDOPHILUS/BULGARICUS 1 EACH TAB.CHEW GT SCH ×2 (09:57→17:36)
[2019-06-24] MEDS: FERROUS SULFATE UDC 300 MG/5 ML UDC GT SCH ×2 (09:57→17:36)
[2019-06-24] MEDS: DOCUSATE SODIUM LIQ 100 MG/10 ML UDC GT SCH (09:57)
[2019-06-24] MEDS: SIMETHICONE SUSP 40 MG/0.6 ML BOTTLE GT SCH ×2 (09:57→20:50)
[2019-06-24] MEDS: HEPARIN SODIUM, PORCINE 5000 UNITS/1 ML VIAL SQ SCH ×2 (09:59→20:51)
[2019-06-24] MEDS: CALCIUM CARBONATE 500 MG TAB.CHEW GT SCH ×2 (09:59→17:36)
[2019-06-24] MEDS: MULTIVIT W/MINERALS 1 TAB TABLET GT SCH (09:59)
[2019-06-24] MEDS: SENNOSIDES 8.6 MG TABLET GT SCH ×2 (09:59→20:50)
[2019-06-24] MEDS: TRILEPTAL GT SCH ×2 (09:59→20:50)
--- NOTE | 2019-06-24 17:30 | NUR ---
Seen and examined by Dr. Luis, NNO given.
[2019-06-24 19:41] VITALS: BP 137/75
[2019-06-24] MEDS: ASCORBIC ACID 500 MG TABLET GT SCH (20:51)
[2019-06-24] MEDS: INSULIN GLARGINE, 100 UNIT/ML CARTRIDGE SQ SCH (21:16)
--- NOTE | 2019-06-24 21:45 | NUR ---
PT RECEIVE STABLE ON MV, SETTINGS ARE AC 16 550 +5 @30% FIO2, ALARMS ARE ON AND AUDIBLE, SPARE TRACH AND AMBU BAG IS AT BEDSIDE, VENT IS PLUG IN RED OUTLET, WILL CONTINUE TO MONITOR Addendum: 06/24/19 at 2146 by ASHLI GRIGGS RT Amended: Links added.
[2019-06-25] MEDS: ALBUTEROL FS 2.5 MG/3 ML VIAL.NEB NEB SCH ×4 (01:35→19:34)
[2019-06-25] MEDS: GABAPENTIN 250 MG/5 ML SOLUTION GT SCH ×3 (04:33→20:01)
[2019-06-25] MEDS: METOCLOPRAMIDE HCL 10 MG TABLET GT SCH ×4 (05:15→23:17)
[2019-06-25] MEDS: OMEPRAZOLE 20 MG CAPSULE.DR GT SCH (05:15)
[2019-06-25] MEDS: BLOOD SUGAR DIAGNOSTIC 1 EACH STRIP IN SCH ×4 (05:27→23:17)
[2019-06-25] MEDS: INSULIN REGULAR, HUMAN 100 UNIT/ML 3 ML VIAL SQ PRN ×2 (05:28→23:18)
[2019-06-25 07:45] VITALS: BP 136/69
[2019-06-25] MEDS: HYDROGEN PEROXIDE 480 ML BOTTLE TP SCH ×2 (09:00→19:34)
[2019-06-25] MEDS: LEVETIRACETAM SOL (5 ML) 100 MG/ML UDC GT SCH ×2 (09:35→20:01)
[2019-06-25] MEDS: ACIDOPHILUS/BULGARICUS 1 EACH TAB.CHEW GT SCH ×2 (09:35→16:06)
[2019-06-25] MEDS: SIMETHICONE SUSP 40 MG/0.6 ML BOTTLE GT SCH ×2 (09:35→20:01)
[2019-06-25] MEDS: FERROUS SULFATE UDC 300 MG/5 ML UDC GT SCH ×2 (09:35→16:06)
[2019-06-25] MEDS: DOCUSATE SODIUM LIQ 100 MG/10 ML UDC GT SCH (09:35)
[2019-06-25] MEDS: MULTIVIT W/MINERALS 1 TAB TABLET GT SCH (09:36)
[2019-06-25] MEDS: VITAMINS A AND D 56.7 GM TUBE TP SCH ×2 (09:36→20:04)
[2019-06-25] MEDS: HEPARIN SODIUM, PORCINE 5000 UNITS/1 ML VIAL SQ SCH ×2 (09:36→20:04)
[2019-06-25] MEDS: CALCIUM CARBONATE 500 MG TAB.CHEW GT SCH ×2 (09:36→16:06)
[2019-06-25] MEDS: SENNOSIDES 8.6 MG TABLET GT SCH ×2 (09:36→20:01)
[2019-06-25] MEDS: TRILEPTAL GT SCH ×2 (09:36→20:01)
[2019-06-25] MEDS: Z GUARD REMEDY 4 OZ OINT TP SCH ×2 (09:36→20:04)
[2019-06-25] MEDS: GLUCERNA 1.2 1,000 ML BOTTLE GT PRN (19:00)
[2019-06-25 19:46] VITALS: BP 132/75
[2019-06-25] MEDS: ASCORBIC ACID 500 MG TABLET GT SCH (20:01)
[2019-06-25] MEDS: INSULIN GLARGINE, 100 UNIT/ML CARTRIDGE SQ SCH (21:11)
[2019-06-26] MEDS: ALBUTEROL FS 2.5 MG/3 ML VIAL.NEB NEB SCH ×4 (01:03→20:04)
[2019-06-26] MEDS: GABAPENTIN 250 MG/5 ML SOLUTION GT SCH ×3 (04:47→21:51)
[2019-06-26] MEDS: INSULIN REGULAR, HUMAN 100 UNIT/ML 3 ML VIAL SQ PRN ×4 (05:14→23:11)
[2019-06-26] MEDS: OMEPRAZOLE 20 MG CAPSULE.DR GT SCH (05:14)
[2019-06-26] MEDS: METOCLOPRAMIDE HCL 10 MG TABLET GT SCH ×4 (05:14→23:11)
[2019-06-26] MEDS: BLOOD SUGAR DIAGNOSTIC 1 EACH STRIP IN SCH ×4 (05:14→23:11)
[2019-06-26] MEDS: HYDROGEN PEROXIDE 480 ML BOTTLE TP SCH ×2 (07:09→21:55)
[2019-06-26 07:46] VITALS: BP 112/66
[2019-06-26] MEDS: TRILEPTAL GT SCH ×2 (09:00→21:51)
[2019-06-26] MEDS: MULTIVIT W/MINERALS 1 TAB TABLET GT SCH (09:00)
[2019-06-26] MEDS: Z GUARD REMEDY 4 OZ OINT TP SCH ×2 (09:00→21:51)
[2019-06-26] MEDS: SIMETHICONE SUSP 40 MG/0.6 ML BOTTLE GT SCH ×2 (09:00→21:51)
[2019-06-26] MEDS: ACIDOPHILUS/BULGARICUS 1 EACH TAB.CHEW GT SCH ×2 (09:00→16:10)
[2019-06-26] MEDS: FERROUS SULFATE UDC 300 MG/5 ML UDC GT SCH ×2 (09:00→16:10)
[2019-06-26] MEDS: LEVETIRACETAM SOL (5 ML) 100 MG/ML UDC GT SCH ×2 (09:00→21:50)
[2019-06-26] MEDS: CALCIUM CARBONATE 500 MG TAB.CHEW GT SCH ×2 (09:00→16:10)
[2019-06-26] MEDS: HEPARIN SODIUM, PORCINE 5000 UNITS/1 ML VIAL SQ SCH ×2 (09:00→21:51)
[2019-06-26] MEDS: VITAMINS A AND D 56.7 GM TUBE TP SCH ×2 (09:00→21:52)
[2019-06-26] MEDS: SENNOSIDES 8.6 MG TABLET GT SCH ×2 (09:00→21:51)
[2019-06-26] MEDS: DOCUSATE SODIUM LIQ 100 MG/10 ML UDC GT SCH (09:00)
[2019-06-26] MEDS: GLUCERNA 1.2 1,000 ML BOTTLE GT PRN (16:07)
[2019-06-26 20:07] VITALS: BP 131/89
[2019-06-26] MEDS: ASCORBIC ACID 500 MG TABLET GT SCH (21:51)
[2019-06-26] MEDS: INSULIN GLARGINE, 100 UNIT/ML CARTRIDGE SQ SCH (21:52)
[2019-06-27] MEDS: ALBUTEROL FS 2.5 MG/3 ML VIAL.NEB NEB SCH ×4 (01:52→20:07)
--- NOTE | 2019-06-27 02:15 | NUR ---
RT Pt trach remains on [facility] vent on ordered settings. No resp distress noted. Trach secure and patent. Addendum: 06/27/19 at 0216 by ASHLI QUEZDAA RT Amended: Links added.
[2019-06-27] MEDS: OMEPRAZOLE 20 MG CAPSULE.DR GT SCH (05:10)
[2019-06-27] MEDS: GABAPENTIN 250 MG/5 ML SOLUTION GT SCH ×3 (05:10→20:09)
[2019-06-27] MEDS: METOCLOPRAMIDE HCL 10 MG TABLET GT SCH ×4 (05:10→23:19)
[2019-06-27] MEDS: BLOOD SUGAR DIAGNOSTIC 1 EACH STRIP IN SCH ×4 (05:44→23:19)
[2019-06-27] MEDS: INSULIN REGULAR, HUMAN 100 UNIT/ML 3 ML VIAL SQ PRN ×4 (05:44→23:20)
[2019-06-27 07:45] VITALS: BP 112/58
[2019-06-27] MEDS: TRILEPTAL GT SCH ×2 (08:38→20:09)
[2019-06-27] MEDS: SIMETHICONE SUSP 40 MG/0.6 ML BOTTLE GT SCH ×2 (08:38→20:09)
[2019-06-27] MEDS: ACIDOPHILUS/BULGARICUS 1 EACH TAB.CHEW GT SCH ×2 (08:38→16:13)
[2019-06-27] MEDS: FERROUS SULFATE UDC 300 MG/5 ML UDC GT SCH ×2 (08:38→16:13)
[2019-06-27] MEDS: SENNOSIDES 8.6 MG TABLET GT SCH ×2 (08:38→20:09)
[2019-06-27] MEDS: MULTIVIT W/MINERALS 1 TAB TABLET GT SCH (08:38)
[2019-06-27] MEDS: DOCUSATE SODIUM LIQ 100 MG/10 ML UDC GT SCH (08:38)
[2019-06-27] MEDS: LEVETIRACETAM SOL (5 ML) 100 MG/ML UDC GT SCH ×2 (08:38→20:09)
[2019-06-27] MEDS: CALCIUM CARBONATE 500 MG TAB.CHEW GT SCH ×2 (08:38→16:13)
[2019-06-27] MEDS: HEPARIN SODIUM, PORCINE 5000 UNITS/1 ML VIAL SQ SCH ×2 (08:40→20:10)
[2019-06-27] MEDS: Z GUARD REMEDY 4 OZ OINT TP SCH ×2 (08:41→20:10)
[2019-06-27] MEDS: VITAMINS A AND D 56.7 GM TUBE TP SCH ×2 (08:41→20:10)
[2019-06-27] MEDS: HYDROGEN PEROXIDE 480 ML BOTTLE TP SCH ×2 (09:00→20:07)
[2019-06-27] MEDS: GLUCERNA 1.2 1,000 ML BOTTLE GT PRN (16:14)
[2019-06-27] MEDS: ASCORBIC ACID 500 MG TABLET GT SCH (20:09)
[2019-06-27 20:44] VITALS: BP 93/54
[2019-06-27] MEDS: INSULIN GLARGINE, 100 UNIT/ML CARTRIDGE SQ SCH (21:41)
[2019-06-28] MEDS: ALBUTEROL FS 2.5 MG/3 ML VIAL.NEB NEB SCH ×4 (01:58→19:30)
[2019-06-28] MEDS: GABAPENTIN 250 MG/5 ML SOLUTION GT SCH ×3 (05:14→21:47)
[2019-06-28] MEDS: OMEPRAZOLE 20 MG CAPSULE.DR GT SCH (05:17)
[2019-06-28] MEDS: METOCLOPRAMIDE HCL 10 MG TABLET GT SCH ×4 (05:17→23:08)
[2019-06-28] MEDS: BLOOD SUGAR DIAGNOSTIC 1 EACH STRIP IN SCH ×4 (05:47→23:08)
[2019-06-28] MEDS: INSULIN REGULAR, HUMAN 100 UNIT/ML 3 ML VIAL SQ PRN ×4 (05:48→23:09)
[2019-06-28 07:46] VITALS: BP 118/86
[2019-06-28] MEDS: HYDROGEN PEROXIDE 480 ML BOTTLE TP SCH ×2 (08:11→21:10)
[2019-06-28] MEDS: SIMETHICONE SUSP 40 MG/0.6 ML BOTTLE GT SCH ×2 (08:33→21:47)
[2019-06-28] MEDS: CALCIUM CARBONATE 500 MG TAB.CHEW GT SCH ×2 (08:33→17:20)
[2019-06-28] MEDS: FERROUS SULFATE UDC 300 MG/5 ML UDC GT SCH ×2 (08:33→17:20)
[2019-06-28] MEDS: DOCUSATE SODIUM LIQ 100 MG/10 ML UDC GT SCH (08:33)
[2019-06-28] MEDS: LEVETIRACETAM SOL (5 ML) 100 MG/ML UDC GT SCH ×2 (08:33→21:47)
[2019-06-28] MEDS: TRILEPTAL GT SCH ×2 (08:33→21:47)
[2019-06-28] MEDS: SENNOSIDES 8.6 MG TABLET GT SCH ×2 (08:33→21:47)
[2019-06-28] MEDS: MULTIVIT W/MINERALS 1 TAB TABLET GT SCH (08:33)
[2019-06-28] MEDS: HEPARIN SODIUM, PORCINE 5000 UNITS/1 ML VIAL SQ SCH ×2 (08:33→21:47)
[2019-06-28] MEDS: ACIDOPHILUS/BULGARICUS 1 EACH TAB.CHEW GT SCH ×2 (08:33→17:20)
[2019-06-28] MEDS: Z GUARD REMEDY 4 OZ OINT TP SCH ×2 (09:00→21:48)
[2019-06-28] MEDS: VITAMINS A AND D 56.7 GM TUBE TP SCH ×2 (09:00→21:48)
[2019-06-28] MEDS: GLUCERNA 1.2 1,000 ML BOTTLE GT PRN (15:04)
[2019-06-28] MEDS: ASCORBIC ACID 500 MG TABLET GT SCH (21:47)
[2019-06-28] MEDS: INSULIN GLARGINE, 100 UNIT/ML CARTRIDGE SQ SCH (21:48)
[2019-06-28 21:57] VITALS: BP 112/56
[2019-06-29] MEDS: ALBUTEROL FS 2.5 MG/3 ML VIAL.NEB NEB SCH ×4 (01:01→21:05)
[2019-06-29] MEDS: METOCLOPRAMIDE HCL 10 MG TABLET GT SCH ×3 (05:43→17:34)
[2019-06-29] MEDS: OMEPRAZOLE 20 MG CAPSULE.DR GT SCH (05:43)
[2019-06-29] MEDS: GABAPENTIN 250 MG/5 ML SOLUTION GT SCH ×3 (05:43→21:25)
[2019-06-29] MEDS: BLOOD SUGAR DIAGNOSTIC 1 EACH STRIP IN SCH ×3 (05:56→17:34)
[2019-06-29] MEDS: INSULIN REGULAR, HUMAN 100 UNIT/ML 3 ML VIAL SQ PRN ×3 (05:56→17:36)
[2019-06-29 07:48] VITALS: BP 121/48
--- NOTE | 2019-06-29 07:55 | NUR ---
PT RECEIVED TRACHED ON [facility] VENT ON CHARTED SETTINGS. NO SIGNS OF RESP DISTRESS/SOB NOTED AT THIS TIME. AIRWAY PATENT AND SECURED. ACID CRANE OPERATOR DONE. PT SUCTIONED. HHN TREATMENT GIVEN. NO ADVERSE REACTIONS NOTED. ALARMS SET AND AUDIBLE. AMBUBAG AND SPARE TRACH PRESENT. VENT CONNECTED TO RED OUTLET. WILL CONT TO MONITOR. Addendum: 06/29/19 at 0755 by ALIA TEIXEIRA RT Amended: Links added.
[2019-06-29] MEDS: HYDROGEN PEROXIDE 480 ML BOTTLE TP SCH ×2 (08:10→21:10)
[2019-06-29] MEDS: VITAMINS A AND D 56.7 GM TUBE TP SCH ×2 (09:00→21:26)
[2019-06-29] MEDS: TRILEPTAL GT SCH ×2 (09:00→21:25)
[2019-06-29] MEDS: SIMETHICONE SUSP 40 MG/0.6 ML BOTTLE GT SCH ×2 (09:00→21:25)
[2019-06-29] MEDS: Z GUARD REMEDY 4 OZ OINT TP SCH ×2 (09:00→21:26)
[2019-06-29] MEDS: MULTIVIT W/MINERALS 1 TAB TABLET GT SCH (09:00)
[2019-06-29] MEDS: LEVETIRACETAM SOL (5 ML) 100 MG/ML UDC GT SCH ×2 (09:00→21:25)
[2019-06-29] MEDS: DOCUSATE SODIUM LIQ 100 MG/10 ML UDC GT SCH (09:00)
[2019-06-29] MEDS: CALCIUM CARBONATE 500 MG TAB.CHEW GT SCH ×2 (09:00→17:34)
[2019-06-29] MEDS: ACIDOPHILUS/BULGARICUS 1 EACH TAB.CHEW GT SCH ×2 (09:00→17:34)
[2019-06-29] MEDS: HEPARIN SODIUM, PORCINE 5000 UNITS/1 ML VIAL SQ SCH ×2 (09:00→21:26)
[2019-06-29] MEDS: SENNOSIDES 8.6 MG TABLET GT SCH ×2 (09:00→21:25)
[2019-06-29] MEDS: FERROUS SULFATE UDC 300 MG/5 ML UDC GT SCH ×2 (09:00→17:34)
[2019-06-29] MEDS: GLUCERNA 1.2 1,000 ML BOTTLE GT PRN (13:16)
--- NOTE | 2019-06-29 15:30 | NUR ---
Seen and examined by Dr. Luis, NNO given at this time
--- NOTE | 2019-06-29 15:42 | NUR ---
Optometry Referral: STEPHEN faxed called Dr. Roldan [facility] office [phone] and spoke to Samantha to schedule appointment for pt. [facility], STEPHEN faxed the pt.s face sheet to office [phone] and receive completed fax receipt. Per Samantha, she will call STEPHEN to inform if pt. is eligible for another optometry appointment and will schedule with STEPHEN.
[2019-06-29 19:40] VITALS: BP 120/64
--- NOTE | 2019-06-29 20:30 | NUR ---
Obtained order from Dr. Luis for Re opened sacral wound stage 3: cleanse with NS,pat dry apply Hydrogel and mepilex q shift x 30 days.Wound consult.
[2019-06-29] MEDS: ASCORBIC ACID 500 MG TABLET GT SCH (21:25)
[2019-06-29] MEDS: HYDROGEL DRESSING 90 GM TUBE TP SCH (21:26)
[2019-06-29] MEDS: INSULIN GLARGINE, 100 UNIT/ML CARTRIDGE SQ SCH (21:27)
[2019-06-30] MEDS: BLOOD SUGAR DIAGNOSTIC 1 EACH STRIP IN SCH ×4 (00:02→17:40)
[2019-06-30] MEDS: METOCLOPRAMIDE HCL 10 MG TABLET GT SCH ×4 (00:02→17:40)
[2019-06-30] MEDS: INSULIN REGULAR, HUMAN 100 UNIT/ML 3 ML VIAL SQ PRN ×4 (00:03→17:40)
[2019-06-30] MEDS: ALBUTEROL FS 2.5 MG/3 ML VIAL.NEB NEB SCH ×4 (02:17→19:59)
[2019-06-30] MEDS: GABAPENTIN 250 MG/5 ML SOLUTION GT SCH ×3 (05:28→21:11)
[2019-06-30] MEDS: OMEPRAZOLE 20 MG CAPSULE.DR GT SCH (05:28)
[2019-06-30] MEDS: GLUCERNA 1.2 1,000 ML BOTTLE GT PRN (05:28)
[2019-06-30 07:27] VITALS: BP 116/62
[2019-06-30] MEDS: VITAMINS A AND D 56.7 GM TUBE TP SCH ×2 (09:00→21:13)
[2019-06-30] MEDS: Z GUARD REMEDY 4 OZ OINT TP SCH ×2 (09:00→21:13)
[2019-06-30] MEDS: HYDROGEN PEROXIDE 480 ML BOTTLE TP SCH ×2 (09:00→20:33)
[2019-06-30] MEDS: HYDROGEL DRESSING 90 GM TUBE TP SCH ×2 (09:00→21:13)
[2019-06-30] MEDS: SIMETHICONE SUSP 40 MG/0.6 ML BOTTLE GT SCH ×2 (09:53→21:11)
[2019-06-30] MEDS: LEVETIRACETAM SOL (5 ML) 100 MG/ML UDC GT SCH ×2 (09:53→21:11)
[2019-06-30] MEDS: DOCUSATE SODIUM LIQ 100 MG/10 ML UDC GT SCH (09:53)
[2019-06-30] MEDS: ACIDOPHILUS/BULGARICUS 1 EACH TAB.CHEW GT SCH ×2 (09:53→17:40)
[2019-06-30] MEDS: FERROUS SULFATE UDC 300 MG/5 ML UDC GT SCH ×2 (09:53→17:40)
[2019-06-30] MEDS: MULTIVIT W/MINERALS 1 TAB TABLET GT SCH (09:54)
[2019-06-30] MEDS: SENNOSIDES 8.6 MG TABLET GT SCH ×2 (09:54→21:00)
[2019-06-30] MEDS: CALCIUM CARBONATE 500 MG TAB.CHEW GT SCH ×2 (09:54→17:40)
[2019-06-30] MEDS: TRILEPTAL GT SCH ×2 (09:54→21:11)
[2019-06-30] MEDS: HEPARIN SODIUM, PORCINE 5000 UNITS/1 ML VIAL SQ SCH ×2 (09:58→21:12)
[2019-06-30 19:48] VITALS: BP 135/76
[2019-06-30] MEDS: ASCORBIC ACID 500 MG TABLET GT SCH (21:12)
[2019-06-30] MEDS: INSULIN GLARGINE, 100 UNIT/ML CARTRIDGE SQ SCH (21:18)
[2019-07-01] MEDS: BLOOD SUGAR DIAGNOSTIC 1 EACH STRIP IN SCH ×5 (00:33→23:51)
[2019-07-01] MEDS: GLUCERNA 1.2 1,000 ML BOTTLE GT PRN ×2 (00:33→17:41)
[2019-07-01] MEDS: METOCLOPRAMIDE HCL 10 MG TABLET GT SCH ×5 (00:33→23:51)
[2019-07-01] MEDS: INSULIN REGULAR, HUMAN 100 UNIT/ML 3 ML VIAL SQ PRN ×5 (00:34→23:53)
[2019-07-01] MEDS: ALBUTEROL FS 2.5 MG/3 ML VIAL.NEB NEB SCH ×4 (01:41→20:56)
[2019-07-01] MEDS: GABAPENTIN 250 MG/5 ML SOLUTION GT SCH ×3 (05:43→21:27)
[2019-07-01] MEDS: OMEPRAZOLE 20 MG CAPSULE.DR GT SCH (05:43)
[2019-07-01 07:24] VITALS: BP 124/54
[2019-07-01] MEDS: DOCUSATE SODIUM LIQ 100 MG/10 ML UDC GT SCH (09:00)
[2019-07-01] MEDS: SENNOSIDES 8.6 MG TABLET GT SCH ×2 (09:00→21:00)
--- NOTE | 2019-07-01 09:03 | NUR ---
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 PT IS HAVING FREQUENT LOOSE STOOLS PER NURSING STAFF. RECOMMENDATIONS MADE FOR SKIN PROTECTION AND WOUND CARE. CONCUR WITH CURRENT ORDERS FOR SACRAL ULCER (HYDROGEL AND MEPILEX) AND Z GUARD IN USE FOR PROTECTION OF BUTTOCKS AND GLUTEAL CREASE AREA. SKIN TO BE KEPT CLEAN AND DRY. WILL SEE PRN. PT ON FIRST STEP MEGAN JOHNSON AIRLOSS MATTRESHANTHI. IN AGREEMENT WITH PLAN OF CARE.
[2019-07-01] MEDS: HYDROGEN PEROXIDE 480 ML BOTTLE TP SCH ×2 (09:44→20:56)
[2019-07-01] MEDS: LEVETIRACETAM SOL (5 ML) 100 MG/ML UDC GT SCH ×2 (09:50→21:27)
[2019-07-01] MEDS: MULTIVIT W/MINERALS 1 TAB TABLET GT SCH (09:50)
[2019-07-01] MEDS: HEPARIN SODIUM, PORCINE 5000 UNITS/1 ML VIAL SQ SCH ×2 (09:50→21:29)
[2019-07-01] MEDS: TRILEPTAL GT SCH ×2 (09:50→21:27)
[2019-07-01] MEDS: ACIDOPHILUS/BULGARICUS 1 EACH TAB.CHEW GT SCH ×2 (09:50→17:40)
[2019-07-01] MEDS: SIMETHICONE SUSP 40 MG/0.6 ML BOTTLE GT SCH ×2 (09:50→21:27)
[2019-07-01] MEDS: FERROUS SULFATE UDC 300 MG/5 ML UDC GT SCH ×2 (09:50→17:40)
[2019-07-01] MEDS: CALCIUM CARBONATE 500 MG TAB.CHEW GT SCH ×2 (09:50→17:40)
[2019-07-01] MEDS: HYDROGEL DRESSING 90 GM TUBE TP SCH ×2 (09:57→21:29)
[2019-07-01] MEDS: Z GUARD REMEDY 4 OZ OINT TP SCH ×4 (09:57→21:30)
[2019-07-01] MEDS: VITAMINS A AND D 56.7 GM TUBE TP SCH ×2 (09:58→21:30)
[2019-07-01 20:09] VITALS: BP 136/67
[2019-07-01] MEDS: ASCORBIC ACID 500 MG TABLET GT SCH (21:29)
[2019-07-01] MEDS: INSULIN GLARGINE, 100 UNIT/ML CARTRIDGE SQ SCH (21:45)
[2019-07-02] MEDS: ALBUTEROL FS 2.5 MG/3 ML VIAL.NEB NEB SCH ×4 (01:39→19:49)
[2019-07-02] MEDS: METOCLOPRAMIDE HCL 10 MG TABLET GT SCH ×3 (05:31→17:44)
[2019-07-02] MEDS: OMEPRAZOLE 20 MG CAPSULE.DR GT SCH (05:31)
[2019-07-02] MEDS: INSULIN REGULAR, HUMAN 100 UNIT/ML 3 ML VIAL SQ PRN ×3 (05:31→17:46)
[2019-07-02] MEDS: BLOOD SUGAR DIAGNOSTIC 1 EACH STRIP IN SCH ×3 (05:31→17:44)
[2019-07-02] MEDS: GABAPENTIN 250 MG/5 ML SOLUTION GT SCH ×3 (05:31→20:59)
[2019-07-02 07:37] VITALS: BP 101/51
[2019-07-02] MEDS: HYDROGEL DRESSING 90 GM TUBE TP SCH ×2 (09:00→21:01)
[2019-07-02] MEDS: Z GUARD REMEDY 4 OZ OINT TP SCH ×4 (09:00→21:02)
[2019-07-02] MEDS: VITAMINS A AND D 56.7 GM TUBE TP SCH ×2 (09:00→21:02)
[2019-07-02] MEDS: HYDROGEN PEROXIDE 480 ML BOTTLE TP SCH ×2 (09:00→21:26)
[2019-07-02] MEDS: FERROUS SULFATE UDC 300 MG/5 ML UDC GT SCH ×2 (09:50→17:44)
[2019-07-02] MEDS: DOCUSATE SODIUM LIQ 100 MG/10 ML UDC GT SCH (09:50)
[2019-07-02] MEDS: TRILEPTAL GT SCH ×2 (09:51→20:59)
[2019-07-02] MEDS: ACIDOPHILUS/BULGARICUS 1 EACH TAB.CHEW GT SCH ×2 (09:51→17:44)
[2019-07-02] MEDS: MULTIVIT W/MINERALS 1 TAB TABLET GT SCH (09:51)
[2019-07-02] MEDS: SIMETHICONE SUSP 40 MG/0.6 ML BOTTLE GT SCH ×2 (09:51→20:59)
[2019-07-02] MEDS: SENNOSIDES 8.6 MG TABLET GT SCH ×2 (09:51→20:59)
[2019-07-02] MEDS: LEVETIRACETAM SOL (5 ML) 100 MG/ML UDC GT SCH ×2 (09:51→20:59)
[2019-07-02] MEDS: CALCIUM CARBONATE 500 MG TAB.CHEW GT SCH ×2 (09:52→17:44)
[2019-07-02] MEDS: HEPARIN SODIUM, PORCINE 5000 UNITS/1 ML VIAL SQ SCH ×2 (09:53→21:01)
--- NOTE | 2019-07-02 10:04 | NUR ---
RT NOTE Pt rec'd trached on [facility] vent on AC mode. No resp distress or sob noted. Trach is patent and secured. sx'd for thick mod amt of pale yellow secretions. Alarms are set and audible. Vent plugged into red outlet. ambu bag bedside. Addendum: 07/02/19 at 1005 by LADAN WICK RT Amended: Links added.
[2019-07-02] MEDS: GLUCERNA 1.2 1,000 ML BOTTLE GT PRN (10:27)
[2019-07-02] MEDS: ASCORBIC ACID 500 MG TABLET GT SCH (20:59)
[2019-07-02] MEDS: INSULIN GLARGINE, 100 UNIT/ML CARTRIDGE SQ SCH (21:02)
[2019-07-03] MEDS: BLOOD SUGAR DIAGNOSTIC 1 EACH STRIP IN SCH ×4 (00:51→17:19)
[2019-07-03] MEDS: METOCLOPRAMIDE HCL 10 MG TABLET GT SCH ×4 (00:51→17:18)
[2019-07-03] MEDS: INSULIN REGULAR, HUMAN 100 UNIT/ML 3 ML VIAL SQ PRN ×4 (00:51→17:20)
[2019-07-03] MEDS: ALBUTEROL FS 2.5 MG/3 ML VIAL.NEB NEB SCH ×4 (01:32→19:45)
[2019-07-03] MEDS: OMEPRAZOLE 20 MG CAPSULE.DR GT SCH (05:42)
[2019-07-03] MEDS: GABAPENTIN 250 MG/5 ML SOLUTION GT SCH ×3 (05:42→20:47)
[2019-07-03] MEDS: GLUCERNA 1.2 1,000 ML BOTTLE GT PRN (05:43)
[2019-07-03] MEDS: HYDROGEN PEROXIDE 480 ML BOTTLE TP SCH ×2 (09:02→21:17)
[2019-07-03] MEDS: CALCIUM CARBONATE 500 MG TAB.CHEW GT SCH ×2 (09:52→17:18)
[2019-07-03] MEDS: DOCUSATE SODIUM LIQ 100 MG/10 ML UDC GT SCH (09:52)
[2019-07-03] MEDS: FERROUS SULFATE UDC 300 MG/5 ML UDC GT SCH ×2 (09:52→17:18)
[2019-07-03] MEDS: SENNOSIDES 8.6 MG TABLET GT SCH ×2 (09:52→20:47)
[2019-07-03] MEDS: SIMETHICONE SUSP 40 MG/0.6 ML BOTTLE GT SCH ×2 (09:52→20:47)
[2019-07-03] MEDS: LEVETIRACETAM SOL (5 ML) 100 MG/ML UDC GT SCH ×2 (09:52→20:47)
[2019-07-03] MEDS: TRILEPTAL GT SCH ×2 (09:52→20:47)
[2019-07-03] MEDS: MULTIVIT W/MINERALS 1 TAB TABLET GT SCH (09:52)
[2019-07-03] MEDS: ACIDOPHILUS/BULGARICUS 1 EACH TAB.CHEW GT SCH ×2 (09:52→17:18)
[2019-07-03] MEDS: Z GUARD REMEDY 4 OZ OINT TP SCH ×4 (09:54→20:47)
[2019-07-03] MEDS: VITAMINS A AND D 56.7 GM TUBE TP SCH ×2 (09:54→20:48)
[2019-07-03] MEDS: HEPARIN SODIUM, PORCINE 5000 UNITS/1 ML VIAL SQ SCH ×2 (09:54→20:47)
[2019-07-03] MEDS: HYDROGEL DRESSING 90 GM TUBE TP SCH ×2 (09:54→20:47)
[2019-07-03 11:40] VITALS: BP 146/77
[2019-07-03 20:21] VITALS: BP 135/71
[2019-07-03] MEDS: ASCORBIC ACID 500 MG TABLET GT SCH (20:47)
[2019-07-03] MEDS: INSULIN GLARGINE, 100 UNIT/ML CARTRIDGE SQ SCH (21:13)
[2019-07-04] MEDS: METOCLOPRAMIDE HCL 10 MG TABLET GT SCH ×5 (00:09→23:34)
[2019-07-04] MEDS: INSULIN REGULAR, HUMAN 100 UNIT/ML 3 ML VIAL SQ PRN ×3 (00:09→23:36)
[2019-07-04] MEDS: BLOOD SUGAR DIAGNOSTIC 1 EACH STRIP IN SCH ×5 (00:09→23:34)
[2019-07-04] MEDS: ALBUTEROL FS 2.5 MG/3 ML VIAL.NEB NEB SCH ×4 (01:29→19:33)
[2019-07-04] MEDS: OMEPRAZOLE 20 MG CAPSULE.DR GT SCH (05:26)
[2019-07-04] MEDS: GABAPENTIN 250 MG/5 ML SOLUTION GT SCH ×3 (05:26→21:30)
--- NOTE | 2019-07-04 08:08 | NUR ---
RT NOTE RECEIVED PT MECHANICALLY VENTILATED VIA CUFFED TRACHEOSTOMY TUBE. CUFF INFLATED. TRACH TUBE MIDLINE AND SECURE. VENTILATOR SETTINGS PRESCRIBED. ALARMS SET PER PROTOCOL AND AUDIBLE. VENT PLUGGED IN TO RED OUTLET. AMBU BAG AND BACK UP TRACH AT BED SIDE. NO DISTRESS NOTED. Addendum: 07/04/19 at 0809 by MAXI BRADY RT Amended: Links added.
[2019-07-04 08:25] VITALS: BP 106/61
[2019-07-04] MEDS: TRILEPTAL GT SCH ×2 (09:00→21:30)
[2019-07-04] MEDS: SIMETHICONE SUSP 40 MG/0.6 ML BOTTLE GT SCH ×2 (09:00→21:30)
[2019-07-04] MEDS: FERROUS SULFATE UDC 300 MG/5 ML UDC GT SCH ×2 (09:00→17:29)
[2019-07-04] MEDS: HYDROGEN PEROXIDE 480 ML BOTTLE TP SCH ×2 (09:00→21:00)
[2019-07-04] MEDS: CALCIUM CARBONATE 500 MG TAB.CHEW GT SCH ×2 (09:00→17:29)
[2019-07-04] MEDS: HEPARIN SODIUM, PORCINE 5000 UNITS/1 ML VIAL SQ SCH ×2 (09:00→21:31)
[2019-07-04] MEDS: LEVETIRACETAM SOL (5 ML) 100 MG/ML UDC GT SCH ×2 (09:00→21:30)
[2019-07-04] MEDS: Z GUARD REMEDY 4 OZ OINT TP SCH ×4 (09:00→21:31)
[2019-07-04] MEDS: DOCUSATE SODIUM LIQ 100 MG/10 ML UDC GT SCH (09:00)
[2019-07-04] MEDS: MULTIVIT W/MINERALS 1 TAB TABLET GT SCH (09:00)
[2019-07-04] MEDS: ACIDOPHILUS/BULGARICUS 1 EACH TAB.CHEW GT SCH ×2 (09:00→17:29)
[2019-07-04] MEDS: SENNOSIDES 8.6 MG TABLET GT SCH ×2 (09:00→21:30)
[2019-07-04] MEDS: VITAMINS A AND D 56.7 GM TUBE TP SCH ×2 (09:00→21:31)
[2019-07-04] MEDS: HYDROGEL DRESSING 90 GM TUBE TP SCH ×2 (09:00→21:31)
--- NOTE | 2019-07-04 14:21 | NUR ---
Optometry Appointment: STEPHEN followed up with Dr. Escalantes office [phone] Escalante is available to see the pt. for annual optometry exam. Per Roslyn, Dr. Escalante will be at [facility] today and will be able to see the resident. STEPHEN notified charge nurse, Kaylie and their family who were agreeable to plan.
[2019-07-04] MEDS: GLUCERNA 1.2 1,000 ML BOTTLE GT PRN (17:29)
[2019-07-04 20:42] VITALS: BP 145/80
[2019-07-04] MEDS: ASCORBIC ACID 500 MG TABLET GT SCH (21:30)
[2019-07-04] MEDS: INSULIN GLARGINE, 100 UNIT/ML CARTRIDGE SQ SCH (21:32)
[2019-07-05] MEDS: ALBUTEROL FS 2.5 MG/3 ML VIAL.NEB NEB SCH ×4 (01:24→19:50)
[2019-07-05] MEDS: METOCLOPRAMIDE HCL 10 MG TABLET GT SCH ×3 (05:26→17:25)
[2019-07-05] MEDS: BLOOD SUGAR DIAGNOSTIC 1 EACH STRIP IN SCH ×3 (05:26→17:25)
[2019-07-05] MEDS: GABAPENTIN 250 MG/5 ML SOLUTION GT SCH ×3 (05:26→21:45)
[2019-07-05] MEDS: OMEPRAZOLE 20 MG CAPSULE.DR GT SCH (05:26)
[2019-07-05] MEDS: INSULIN REGULAR, HUMAN 100 UNIT/ML 3 ML VIAL SQ PRN ×3 (05:27→17:26)
[2019-07-05 06:28] LABS: BASOPHILS # (AUTO) 0.1 /CMM (0.0-0.2); BASOPHILS % (AUTO) 0.3 % (0.0-2.0); EOSINOPHILS % (AUTO) 3.1 % (0.0-6.0); HEMATOCRIT 21 % (33-45); HEMOGLOBIN 7.3 g/dL (11.5-14.8); LYMPHOCYTES # (AUTO) 3.2 /CMM (0.8-4.8); MEAN CORPUSCULAR HGB CONC 35 g/dl (31.0-36.0); MEAN CORPUSCULAR VOLUME 101 fL (82-100); MONOCYTES # (AUTO) 1.3 /CMM (0.1-1.30); MONOCYTES % (AUTO) 7.3 % (2.0-12.0); NEUTROPHILS # (AUTO) 12.5 /CMM (1.8-8.9); NEUTROPHILS % (AUTO) 71.3 % (43.0-81.0); PLATELET COUNT (AUTO) 324 /CMM (150-450); RED BLOOD CELL COUNT(AUTO) 2.04 MIL/uL (4.0-5.2); WHITE BLOOD COUNT (AUTO) 17.6 K/uL (4.3-11.0)
[2019-07-05 06:30] LABS: CALCIUM, SERUM 10.5 mg/dL (8.5-10.1); CREATININE 2.9 mg/dL (0.6-1.3); MAGNESIUM 2.7 mg/dL (1.8-2.4); PHOSPHORUS 3.9 mg/dL (2.5-4.9); POTASSIUM 3.7 mmol/L (3.5-5.1)
[2019-07-05 08:09] VITALS: BP 126/72
[2019-07-05] MEDS: HYDROGEN PEROXIDE 480 ML BOTTLE TP SCH ×2 (08:19→19:50)
[2019-07-05] MEDS: ACIDOPHILUS/BULGARICUS 1 EACH TAB.CHEW GT SCH ×2 (09:00→16:27)
[2019-07-05] MEDS: VITAMINS A AND D 56.7 GM TUBE TP SCH ×2 (09:00→21:46)
[2019-07-05] MEDS: FERROUS SULFATE UDC 300 MG/5 ML UDC GT SCH ×2 (09:00→16:27)
[2019-07-05] MEDS: DOCUSATE SODIUM LIQ 100 MG/10 ML UDC GT SCH (09:00)
[2019-07-05] MEDS: Z GUARD REMEDY 4 OZ OINT TP SCH ×4 (09:00→21:46)
[2019-07-05] MEDS: SENNOSIDES 8.6 MG TABLET GT SCH ×2 (09:00→21:45)
[2019-07-05] MEDS: MULTIVIT W/MINERALS 1 TAB TABLET GT SCH (09:00)
[2019-07-05] MEDS: TRILEPTAL GT SCH ×2 (09:00→21:45)
[2019-07-05] MEDS: HYDROGEL DRESSING 90 GM TUBE TP SCH ×2 (09:00→21:46)
[2019-07-05] MEDS: HEPARIN SODIUM, PORCINE 5000 UNITS/1 ML VIAL SQ SCH ×2 (09:00→21:46)
[2019-07-05] MEDS: LEVETIRACETAM SOL (5 ML) 100 MG/ML UDC GT SCH ×2 (09:00→21:45)
[2019-07-05] MEDS: CALCIUM CARBONATE 500 MG TAB.CHEW GT SCH ×2 (09:00→16:27)
[2019-07-05] MEDS: SIMETHICONE SUSP 40 MG/0.6 ML BOTTLE GT SCH ×2 (09:00→21:45)
--- NOTE | 2019-07-05 15:00 | NUR ---
Seen by Dr Luis. Relayed lab results to him. Pt's WBC 17.6, but she is afebrile, T 97.0 F. No increased secretions. Urine yellowish in color, no foul odor noted. No new order.
[2019-07-05] MEDS: GLUCERNA 1.2 1,000 ML BOTTLE GT PRN (16:27)
--- NOTE | 2019-07-05 17:33 | NUR ---
RT NOTE RECEIVED PATIENT ON TRACH WITH MECHANICAL VENTILATOR. TRACH IS PATENT AND SECURED. SPARE TRACH AND BVM IS AT BEDSIDE. ALARMS ARE SET AND AUDIBLE. VENTILATOR IS PLUGGED TO RED OUTLET. PATIENT HAS EQUAL CHEST RISE WITH COARSE BILATERAL BREATH SOUNDS. SUCTION MODERATE AMOUNT OF THIN YELLOW SECRETIONS THROUGH OUT THE DAY. PATIENT TOLERATED Q6 BREATHING TREATMENTS WELL. Addendum: 07/05/19 at 1734 by DAVE HICKMAN RT Amended: Links added.
[2019-07-05 20:31] VITALS: BP 105/69
[2019-07-05] MEDS: ASCORBIC ACID 500 MG TABLET GT SCH (21:45)
[2019-07-05] MEDS: INSULIN GLARGINE, 100 UNIT/ML CARTRIDGE SQ SCH (21:47)
[2019-07-06] MEDS: METOCLOPRAMIDE HCL 10 MG TABLET GT SCH ×5 (00:06→23:46)
[2019-07-06] MEDS: BLOOD SUGAR DIAGNOSTIC 1 EACH STRIP IN SCH ×5 (00:06→23:46)
[2019-07-06] MEDS: INSULIN REGULAR, HUMAN 100 UNIT/ML 3 ML VIAL SQ PRN ×5 (00:07→23:46)
[2019-07-06] MEDS: ALBUTEROL FS 2.5 MG/3 ML VIAL.NEB NEB SCH ×4 (01:14→19:40)
[2019-07-06] MEDS: OMEPRAZOLE 20 MG CAPSULE.DR GT SCH (05:29)
[2019-07-06] MEDS: GABAPENTIN 250 MG/5 ML SOLUTION GT SCH ×3 (05:29→21:39)
[2019-07-06 08:00] VITALS: BP 131/73
[2019-07-06] MEDS: HYDROGEN PEROXIDE 480 ML BOTTLE TP SCH ×2 (08:24→19:40)
[2019-07-06] MEDS: HEPARIN SODIUM, PORCINE 5000 UNITS/1 ML VIAL SQ SCH ×2 (09:00→21:39)
[2019-07-06] MEDS: HYDROGEL DRESSING 90 GM TUBE TP SCH ×2 (09:00→21:40)
[2019-07-06] MEDS: MULTIVIT W/MINERALS 1 TAB TABLET GT SCH (09:00)
[2019-07-06] MEDS: DOCUSATE SODIUM LIQ 100 MG/10 ML UDC GT SCH (09:00)
[2019-07-06] MEDS: SIMETHICONE SUSP 40 MG/0.6 ML BOTTLE GT SCH ×2 (09:00→21:39)
[2019-07-06] MEDS: VITAMINS A AND D 56.7 GM TUBE TP SCH ×2 (09:00→21:40)
[2019-07-06] MEDS: TRILEPTAL GT SCH ×2 (09:00→21:39)
[2019-07-06] MEDS: Z GUARD REMEDY 4 OZ OINT TP SCH ×4 (09:00→21:40)
[2019-07-06] MEDS: CALCIUM CARBONATE 500 MG TAB.CHEW GT SCH ×2 (09:00→17:43)
[2019-07-06] MEDS: LEVETIRACETAM SOL (5 ML) 100 MG/ML UDC GT SCH ×2 (09:00→21:38)
[2019-07-06] MEDS: ACIDOPHILUS/BULGARICUS 1 EACH TAB.CHEW GT SCH ×2 (09:00→17:43)
[2019-07-06] MEDS: SENNOSIDES 8.6 MG TABLET GT SCH ×2 (09:00→21:39)
[2019-07-06] MEDS: FERROUS SULFATE UDC 300 MG/5 ML UDC GT SCH ×2 (09:00→17:43)
[2019-07-06] MEDS: GLUCERNA 1.2 1,000 ML BOTTLE GT PRN (13:37)
[2019-07-06 20:09] VITALS: BP 129/78
[2019-07-06] MEDS: ASCORBIC ACID 500 MG TABLET GT SCH (21:39)
[2019-07-06] MEDS: INSULIN GLARGINE, 100 UNIT/ML CARTRIDGE SQ SCH (21:41)
[2019-07-07] MEDS: ALBUTEROL FS 2.5 MG/3 ML VIAL.NEB NEB SCH ×4 (01:35→20:26)
[2019-07-07] MEDS: OMEPRAZOLE 20 MG CAPSULE.DR GT SCH (05:38)
[2019-07-07] MEDS: GABAPENTIN 250 MG/5 ML SOLUTION GT SCH ×3 (05:38→20:40)
[2019-07-07] MEDS: METOCLOPRAMIDE HCL 10 MG TABLET GT SCH ×4 (05:38→23:50)
[2019-07-07] MEDS: BLOOD SUGAR DIAGNOSTIC 1 EACH STRIP IN SCH ×4 (05:38→23:50)
[2019-07-07] MEDS: INSULIN REGULAR, HUMAN 100 UNIT/ML 3 ML VIAL SQ PRN ×4 (05:39→23:50)
[2019-07-07 07:33] VITALS: BP 121/72
[2019-07-07] MEDS: FERROUS SULFATE UDC 300 MG/5 ML UDC GT SCH ×2 (09:51→17:32)
[2019-07-07] MEDS: DOCUSATE SODIUM LIQ 100 MG/10 ML UDC GT SCH (09:51)
[2019-07-07] MEDS: SIMETHICONE SUSP 40 MG/0.6 ML BOTTLE GT SCH ×2 (09:51→20:40)
[2019-07-07] MEDS: SENNOSIDES 8.6 MG TABLET GT SCH ×2 (09:51→20:40)
[2019-07-07] MEDS: LEVETIRACETAM SOL (5 ML) 100 MG/ML UDC GT SCH ×2 (09:51→20:40)
[2019-07-07] MEDS: TRILEPTAL GT SCH ×2 (09:51→20:40)
[2019-07-07] MEDS: HEPARIN SODIUM, PORCINE 5000 UNITS/1 ML VIAL SQ SCH ×2 (09:51→20:41)
[2019-07-07] MEDS: MULTIVIT W/MINERALS 1 TAB TABLET GT SCH (09:51)
[2019-07-07] MEDS: CALCIUM CARBONATE 500 MG TAB.CHEW GT SCH ×2 (09:51→17:32)
[2019-07-07] MEDS: HYDROGEL DRESSING 90 GM TUBE TP SCH ×2 (09:51→20:41)
[2019-07-07] MEDS: ACIDOPHILUS/BULGARICUS 1 EACH TAB.CHEW GT SCH ×2 (09:51→17:32)
[2019-07-07] MEDS: VITAMINS A AND D 56.7 GM TUBE TP SCH ×2 (09:52→20:41)
[2019-07-07] MEDS: Z GUARD REMEDY 4 OZ OINT TP SCH ×4 (09:52→20:41)
[2019-07-07] MEDS: GLUCERNA 1.2 1,000 ML BOTTLE GT PRN (09:52)
[2019-07-07] MEDS: HYDROGEN PEROXIDE 480 ML BOTTLE TP SCH ×2 (09:58→21:20)
[2019-07-07 20:10] VITALS: BP 108/83
[2019-07-07] MEDS: ASCORBIC ACID 500 MG TABLET GT SCH (20:40)
--- NOTE | 2019-07-07 21:25 | NUR ---
RT NOTE Pt Rec'd trached on [facility] vent on AC mode. No resp distress or sob noted. Pt sx'd for thick mod amt of pale yellow secretions. Alarms are set and audible. Vent plugged into red outlet. ambu bag bedside. Will continue to monitor closely. Addendum: 07/07/19 at 2126 by LADAN WICK RT Amended: Links added.
[2019-07-07] MEDS: INSULIN GLARGINE, 100 UNIT/ML CARTRIDGE SQ SCH (21:29)
[2019-07-08] MEDS: ALBUTEROL FS 2.5 MG/3 ML VIAL.NEB NEB SCH ×4 (01:32→19:24)
[2019-07-08] MEDS: METOCLOPRAMIDE HCL 10 MG TABLET GT SCH ×4 (05:21→23:37)
[2019-07-08] MEDS: GABAPENTIN 250 MG/5 ML SOLUTION GT SCH ×3 (05:21→21:19)
[2019-07-08] MEDS: GLUCERNA 1.2 1,000 ML BOTTLE GT PRN ×2 (05:21→22:04)
[2019-07-08] MEDS: OMEPRAZOLE 20 MG CAPSULE.DR GT SCH (05:21)
[2019-07-08] MEDS: INSULIN REGULAR, HUMAN 100 UNIT/ML 3 ML VIAL SQ PRN ×4 (05:55→23:37)
[2019-07-08] MEDS: BLOOD SUGAR DIAGNOSTIC 1 EACH STRIP IN SCH ×4 (05:55→23:37)
[2019-07-08 07:32] VITALS: BP 122/70
[2019-07-08] MEDS: HYDROGEN PEROXIDE 480 ML BOTTLE TP SCH ×2 (08:05→19:24)
[2019-07-08] MEDS: ACIDOPHILUS/BULGARICUS 1 EACH TAB.CHEW GT SCH ×2 (09:00→16:47)
[2019-07-08] MEDS: HYDROGEL DRESSING 90 GM TUBE TP SCH ×2 (09:00→21:20)
[2019-07-08] MEDS: VITAMINS A AND D 56.7 GM TUBE TP SCH ×2 (09:00→21:20)
[2019-07-08] MEDS: FERROUS SULFATE UDC 300 MG/5 ML UDC GT SCH ×2 (09:00→16:47)
[2019-07-08] MEDS: SENNOSIDES 8.6 MG TABLET GT SCH ×2 (09:00→21:19)
[2019-07-08] MEDS: LEVETIRACETAM SOL (5 ML) 100 MG/ML UDC GT SCH ×2 (09:00→21:19)
[2019-07-08] MEDS: HEPARIN SODIUM, PORCINE 5000 UNITS/1 ML VIAL SQ SCH ×2 (09:00→21:20)
[2019-07-08] MEDS: MULTIVIT W/MINERALS 1 TAB TABLET GT SCH (09:00)
[2019-07-08] MEDS: Z GUARD REMEDY 4 OZ OINT TP SCH ×4 (09:00→21:20)
[2019-07-08] MEDS: CALCIUM CARBONATE 500 MG TAB.CHEW GT SCH ×2 (09:00→16:47)
[2019-07-08] MEDS: TRILEPTAL GT SCH ×2 (09:00→21:19)
[2019-07-08] MEDS: DOCUSATE SODIUM LIQ 100 MG/10 ML UDC GT SCH (09:00)
[2019-07-08] MEDS: SIMETHICONE SUSP 40 MG/0.6 ML BOTTLE GT SCH ×2 (09:00→21:19)
--- NOTE | 2019-07-08 15:00 | NUR ---
Notified Dr. Luis that patient apperas to be lethargic although she responds and follows simple direction when she is awake. Patient's WBC (17.6) elevated with lab draw on 07/05. Patient asymptomatic. Gave an order to get CBC. Order carried out.
[2019-07-08 17:14] LABS: BASOPHILS % (AUTO) 0.3 % (0.0-2.0); HEMATOCRIT 23 % (33-45); HEMOGLOBIN 8.3 g/dL (11.5-14.8); LYMPHOCYTES # (AUTO) 2.7 /CMM (0.8-4.8); MEAN CORPUSCULAR HGB CONC 36 g/dl (31.0-36.0); MEAN CORPUSCULAR VOLUME 101 fL (82-100); MONOCYTES % (AUTO) 7.9 % (2.0-12.0); NEUTROPHILS # (AUTO) 8.7 /CMM (1.8-8.9); NEUTROPHILS % (AUTO) 66.8 % (43.0-81.0); PLATELET COUNT (AUTO) 381 /CMM (150-450); RED BLOOD CELL COUNT(AUTO) 2.27 MIL/uL (4.0-5.2)
--- NOTE | 2019-07-08 18:34 | NUR ---
RT NOTES RECEIVED PATIENT ON MECHANICAL VENT WITH ORDERED SETTINGS. ALARMS ON AND AUDIBLE. VENT PLUGGED IN TO RED OUTLET. TRACH TUBE IN PLACE, PATENT, AND SECURED WITH TRACH TIE. AMBU BAG AND BACK UP TRACH BY THE BEDSIDE. NO DISTRESS AT THIS TIME.
--- NOTE | 2019-07-08 18:55 | NUR ---
Seen and examined by Dr. Luis and PRINTED CIRCUIT BOARDS INSPECTOR Anna Vargas NNO given.
--- NOTE | 2019-07-08 19:20 | NUR ---
Reported CBC result with WBC 13.0 to NAG Escudero given Called resident's sister Beckie and updated sister of the labs result and patient's skin condition. Appreciated the information given.
[2019-07-08 20:55] VITALS: BP 111/65
[2019-07-08] MEDS: ASCORBIC ACID 500 MG TABLET GT SCH (21:19)
[2019-07-08] MEDS: INSULIN GLARGINE, 100 UNIT/ML CARTRIDGE SQ SCH (21:20)
[2019-07-09] MEDS: ALBUTEROL FS 2.5 MG/3 ML VIAL.NEB NEB SCH ×4 (01:55→19:22)
--- NOTE | 2019-07-09 04:18 | NUR ---
RT NOTE: RECEIVED TRACH PT ON NOTED ORDERED VENT SETTINGS. NO RESPIRATORY DISTRESS NOTED. TRACH CHECKED SECURE AND PATENT. SXD AND LAVAGE Q ROUND AND NEEDED. TXS GIVEN ORDERED WITH NO ADVERSE REACTIONS NOTED. TRACH CARE DONE. SPARE TRACH AND AMBU BAG @ BEDSIDE. ALARMS CHECKED ON AND AUDIBLE. VENT PLUGGED INTO RED OUTLET.
[2019-07-09] MEDS: OMEPRAZOLE 20 MG CAPSULE.DR GT SCH (05:54)
[2019-07-09] MEDS: METOCLOPRAMIDE HCL 10 MG TABLET GT SCH ×3 (05:54→17:14)
[2019-07-09] MEDS: BLOOD SUGAR DIAGNOSTIC 1 EACH STRIP IN SCH ×3 (05:54→17:30)
[2019-07-09] MEDS: GABAPENTIN 250 MG/5 ML SOLUTION GT SCH ×3 (05:54→20:57)
[2019-07-09] MEDS: INSULIN REGULAR, HUMAN 100 UNIT/ML 3 ML VIAL SQ PRN ×3 (05:55→17:30)
[2019-07-09 07:55] VITALS: BP 99/53
[2019-07-09] MEDS: MULTIVIT W/MINERALS 1 TAB TABLET GT SCH (09:00)
[2019-07-09] MEDS: FERROUS SULFATE UDC 300 MG/5 ML UDC GT SCH ×2 (09:00→17:14)
[2019-07-09] MEDS: SENNOSIDES 8.6 MG TABLET GT SCH ×2 (09:00→20:57)
[2019-07-09] MEDS: TRILEPTAL GT SCH ×2 (09:00→20:57)
[2019-07-09] MEDS: HYDROGEL DRESSING 90 GM TUBE TP SCH ×2 (09:00→20:58)
[2019-07-09] MEDS: VITAMINS A AND D 56.7 GM TUBE TP SCH ×2 (09:00→20:58)
[2019-07-09] MEDS: HYDROGEN PEROXIDE 480 ML BOTTLE TP SCH ×2 (09:00→19:22)
[2019-07-09] MEDS: CALCIUM CARBONATE 500 MG TAB.CHEW GT SCH ×2 (09:00→17:14)
[2019-07-09] MEDS: LEVETIRACETAM SOL (5 ML) 100 MG/ML UDC GT SCH ×2 (09:00→20:57)
[2019-07-09] MEDS: Z GUARD REMEDY 4 OZ OINT TP SCH ×4 (09:00→20:58)
[2019-07-09] MEDS: ACIDOPHILUS/BULGARICUS 1 EACH TAB.CHEW GT SCH ×2 (09:00→17:14)
[2019-07-09] MEDS: DOCUSATE SODIUM LIQ 100 MG/10 ML UDC GT SCH (09:00)
[2019-07-09] MEDS: SIMETHICONE SUSP 40 MG/0.6 ML BOTTLE GT SCH ×2 (09:00→20:57)
[2019-07-09] MEDS: HEPARIN SODIUM, PORCINE 5000 UNITS/1 ML VIAL SQ SCH ×2 (09:00→20:58)
[2019-07-09] MEDS: GLUCERNA 1.2 1,000 ML BOTTLE GT PRN (17:22)
[2019-07-09] MEDS: ASCORBIC ACID 500 MG TABLET GT SCH (20:57)
[2019-07-09] MEDS: INSULIN GLARGINE, 100 UNIT/ML CARTRIDGE SQ SCH (21:33)
[2019-07-09 23:33] VITALS: BP 128/57
[2019-07-10] MEDS: BLOOD SUGAR DIAGNOSTIC 1 EACH STRIP IN SCH ×4 (00:13→18:04)
[2019-07-10] MEDS: INSULIN REGULAR, HUMAN 100 UNIT/ML 3 ML VIAL SQ PRN ×3 (00:13→18:04)
[2019-07-10] MEDS: METOCLOPRAMIDE HCL 10 MG TABLET GT SCH ×4 (00:13→17:32)
[2019-07-10] MEDS: ALBUTEROL FS 2.5 MG/3 ML VIAL.NEB NEB SCH ×4 (01:10→19:40)
[2019-07-10] MEDS: GABAPENTIN 250 MG/5 ML SOLUTION GT SCH ×3 (05:14→20:47)
[2019-07-10] MEDS: OMEPRAZOLE 20 MG CAPSULE.DR GT SCH (05:14)
[2019-07-10] MEDS: HYDROGEN PEROXIDE 480 ML BOTTLE TP SCH ×2 (07:35→21:10)
[2019-07-10 07:45] VITALS: BP 127/58
[2019-07-10] MEDS: Z GUARD REMEDY 4 OZ OINT TP SCH ×4 (09:00→20:50)
[2019-07-10] MEDS: MULTIVIT W/MINERALS 1 TAB TABLET GT SCH (09:00)
[2019-07-10] MEDS: VITAMINS A AND D 56.7 GM TUBE TP SCH ×2 (09:00→20:50)
[2019-07-10] MEDS: HEPARIN SODIUM, PORCINE 5000 UNITS/1 ML VIAL SQ SCH ×2 (09:00→20:49)
[2019-07-10] MEDS: HYDROGEL DRESSING 90 GM TUBE TP SCH ×2 (09:00→20:49)
[2019-07-10] MEDS: DOCUSATE SODIUM LIQ 100 MG/10 ML UDC GT SCH (09:29)
[2019-07-10] MEDS: FERROUS SULFATE UDC 300 MG/5 ML UDC GT SCH ×2 (09:31→17:32)
[2019-07-10] MEDS: LEVETIRACETAM SOL (5 ML) 100 MG/ML UDC GT SCH ×2 (09:31→20:46)
[2019-07-10] MEDS: ACIDOPHILUS/BULGARICUS 1 EACH TAB.CHEW GT SCH ×2 (09:31→17:32)
[2019-07-10] MEDS: SIMETHICONE SUSP 40 MG/0.6 ML BOTTLE GT SCH ×2 (09:33→20:47)
[2019-07-10] MEDS: SENNOSIDES 8.6 MG TABLET GT SCH ×2 (09:33→20:48)
[2019-07-10] MEDS: TRILEPTAL GT SCH ×2 (09:33→20:48)
[2019-07-10] MEDS: CALCIUM CARBONATE 500 MG TAB.CHEW GT SCH ×2 (09:34→17:32)
--- NOTE | 2019-07-10 19:40 | NUR ---
RT NOTES PT RECEIVED TRACHED ON [facility] VENT ON CHARTED SETTINGS. NO SIGNS OF RESP DISTRESS/SOB NOTED. AIRWAY PATENT AND SECURED. RETAIL SALES MANAGER DONE. PT SUCTIONED. HHN TX GIVEN. NO ADVERSE REACTIONS NOTED. ALARMS SET AND AUDIBLE. AMBUBAG AND SPARE TRACH AT BEDSIDE. VENT CONNECTED TO RED OUTLET. WILL CONT TO MONITOR Addendum: 07/11/19 at 0313 by EDDI GUTIÉRREZ RT Amended: Links added.
[2019-07-10 20:44] VITALS: BP 128/71
[2019-07-10] MEDS: ASCORBIC ACID 500 MG TABLET GT SCH (20:49)
[2019-07-10] MEDS: INSULIN GLARGINE, 100 UNIT/ML CARTRIDGE SQ SCH (21:36)
[2019-07-11] MEDS: BLOOD SUGAR DIAGNOSTIC 1 EACH STRIP IN SCH ×4 (00:34→18:28)
[2019-07-11] MEDS: METOCLOPRAMIDE HCL 10 MG TABLET GT SCH ×4 (00:34→18:28)
[2019-07-11] MEDS: INSULIN REGULAR, HUMAN 100 UNIT/ML 3 ML VIAL SQ PRN ×2 (00:35→05:43)
[2019-07-11] MEDS: ALBUTEROL FS 2.5 MG/3 ML VIAL.NEB NEB SCH ×4 (01:47→19:19)
[2019-07-11] MEDS: GABAPENTIN 250 MG/5 ML SOLUTION GT SCH ×3 (05:40→21:51)
[2019-07-11] MEDS: OMEPRAZOLE 20 MG CAPSULE.DR GT SCH (05:40)
[2019-07-11 08:02] VITALS: BP 106/55
--- NOTE | 2019-07-11 08:03 | NUR ---
PT RECEIVED TRACHED ON [facility] VENT ON [place] ORDERED SETTINGS. AIRWAY PATENT AND SECURED. REGIONAL GEODETIC ADVISOR DONE. ALARMS SET AND AUDIBLE. AMBUBAG AND SPARE TRACH AT BEDSIDE. VENT CONNECTED TO RED OUTLET. Addendum: 07/11/19 at 0803 by ALIA TEIXEIRA RT Amended: Links added.
[2019-07-11] MEDS: DOCUSATE SODIUM LIQ 100 MG/10 ML UDC GT SCH (09:00)
[2019-07-11] MEDS: FERROUS SULFATE UDC 300 MG/5 ML UDC GT SCH ×2 (09:00→17:00)
[2019-07-11] MEDS: VITAMINS A AND D 56.7 GM TUBE TP SCH ×2 (09:00→21:52)
[2019-07-11] MEDS: LEVETIRACETAM SOL (5 ML) 100 MG/ML UDC GT SCH ×2 (09:00→21:51)
[2019-07-11] MEDS: SENNOSIDES 8.6 MG TABLET GT SCH ×2 (09:00→21:51)
[2019-07-11] MEDS: TRILEPTAL GT SCH ×2 (09:00→21:51)
[2019-07-11] MEDS: MULTIVIT W/MINERALS 1 TAB TABLET GT SCH (09:00)
[2019-07-11] MEDS: Z GUARD REMEDY 4 OZ OINT TP SCH ×4 (09:00→21:52)
[2019-07-11] MEDS: CALCIUM CARBONATE 500 MG TAB.CHEW GT SCH ×2 (09:00→17:00)
[2019-07-11] MEDS: HYDROGEL DRESSING 90 GM TUBE TP SCH ×2 (09:00→21:52)
[2019-07-11] MEDS: SIMETHICONE SUSP 40 MG/0.6 ML BOTTLE GT SCH ×2 (09:00→21:51)
[2019-07-11] MEDS: HEPARIN SODIUM, PORCINE 5000 UNITS/1 ML VIAL SQ SCH ×2 (09:00→21:52)
[2019-07-11] MEDS: ACIDOPHILUS/BULGARICUS 1 EACH TAB.CHEW GT SCH ×2 (09:00→17:00)
[2019-07-11] MEDS: HYDROGEN PEROXIDE 480 ML BOTTLE TP SCH ×2 (09:20→21:00)
--- NOTE | 2019-07-11 09:52 | NUR ---
Dr. Kumar placed an order for CBC, CMP, Mg, Phosphorus on 07/12/19. Resident stable, no fever. Will continue to monitor.
[2019-07-11] MEDS: GLUCERNA 1.2 1,000 ML BOTTLE GT PRN (14:52)
[2019-07-11 20:10] VITALS: BP 126/70
[2019-07-11] MEDS: ASCORBIC ACID 500 MG TABLET GT SCH (21:51)
[2019-07-11] MEDS: INSULIN GLARGINE, 100 UNIT/ML CARTRIDGE SQ SCH (21:53)
[2019-07-12] MEDS: METOCLOPRAMIDE HCL 10 MG TABLET GT SCH ×4 (00:12→17:40)
[2019-07-12] MEDS: BLOOD SUGAR DIAGNOSTIC 1 EACH STRIP IN SCH ×4 (00:43→18:18)
[2019-07-12] MEDS: ALBUTEROL FS 2.5 MG/3 ML VIAL.NEB NEB SCH ×4 (01:46→20:10)
[2019-07-12] MEDS: GABAPENTIN 250 MG/5 ML SOLUTION GT SCH ×3 (05:42→20:57)
[2019-07-12] MEDS: OMEPRAZOLE 20 MG CAPSULE.DR GT SCH (05:42)
[2019-07-12 07:14] LABS: BASOPHILS # (AUTO) 0.1 /CMM (0.0-0.2); BASOPHILS % (AUTO) 0.6 % (0.0-2.0); HEMATOCRIT 22 % (33-45); HEMOGLOBIN 7.9 g/dL (11.5-14.8); LYMPHOCYTES # (AUTO) 3.6 /CMM (0.8-4.8); LYMPHOCYTES % (AUTO) 24.4 % (20.0-44.0); MEAN CORPUSCULAR HGB CONC 36 g/dl (31.0-36.0); MEAN CORPUSCULAR VOLUME 102 fL (82-100); MONOCYTES # (AUTO) 1.3 /CMM (0.1-1.30); MONOCYTES % (AUTO) 8.9 % (2.0-12.0); NEUTROPHILS % (AUTO) 61.1 % (43.0-81.0); PLATELET COUNT (AUTO) 441 /CMM (150-450); RED BLOOD CELL COUNT(AUTO) 2.17 MIL/uL (4.0-5.2); WHITE BLOOD COUNT (AUTO) 14.8 K/uL (4.3-11.0)
[2019-07-12 07:42] LABS: ALBUMIN 2.7 g/dL (3.4-5.0); BILIRUBIN,TOTAL 0.2 mg/dL (0.2-1.0); CALCIUM, SERUM 11.2 mg/dL (8.5-10.1); CREATININE 3.1 mg/dL (0.6-1.3); MAGNESIUM 2.7 mg/dL (1.8-2.4); PHOSPHORUS 5.2 mg/dL (2.5-4.9); POTASSIUM 4.2 mmol/L (3.5-5.1)
[2019-07-12 07:56] VITALS: BP 105/70
[2019-07-12] MEDS: HYDROGEN PEROXIDE 480 ML BOTTLE TP SCH ×2 (08:27→21:00)
[2019-07-12] MEDS: HYDROGEL DRESSING 90 GM TUBE TP SCH ×2 (09:00→20:59)
[2019-07-12] MEDS: HEPARIN SODIUM, PORCINE 5000 UNITS/1 ML VIAL SQ SCH ×2 (09:00→20:59)
[2019-07-12] MEDS: SENNOSIDES 8.6 MG TABLET GT SCH ×2 (09:00→20:58)
[2019-07-12] MEDS: ACIDOPHILUS/BULGARICUS 1 EACH TAB.CHEW GT SCH ×2 (09:00→16:40)
[2019-07-12] MEDS: VITAMINS A AND D 56.7 GM TUBE TP SCH ×2 (09:00→20:59)
[2019-07-12] MEDS: CALCIUM CARBONATE 500 MG TAB.CHEW GT SCH ×2 (09:00→16:40)
[2019-07-12] MEDS: TRILEPTAL GT SCH ×2 (09:00→20:57)
[2019-07-12] MEDS: SIMETHICONE SUSP 40 MG/0.6 ML BOTTLE GT SCH ×2 (09:00→20:57)
[2019-07-12] MEDS: DOCUSATE SODIUM LIQ 100 MG/10 ML UDC GT SCH (09:00)
[2019-07-12] MEDS: Z GUARD REMEDY 4 OZ OINT TP SCH ×4 (09:00→20:59)
[2019-07-12] MEDS: MULTIVIT W/MINERALS 1 TAB TABLET GT SCH (09:00)
[2019-07-12] MEDS: LEVETIRACETAM SOL (5 ML) 100 MG/ML UDC GT SCH ×2 (09:00→20:56)
[2019-07-12] MEDS: FERROUS SULFATE UDC 300 MG/5 ML UDC GT SCH ×2 (09:00→16:40)
--- NOTE | 2019-07-12 10:18 | NUR ---
Seen and examined by Dr. Felix, no new order given.
--- NOTE | 2019-07-12 14:10 | NUR ---
NON-ADMIN INSULIN PER SLIDING SCALE OF A BLOOD SUGAR OF 94.
--- NOTE | 2019-07-12 15:25 | NUR ---
Resident is awake in a good mood smiling during conversation.She's engaged in watching her cartoons. She loves to listen to music too. Resident is unaable to communicate but smiles from time to time when her sister's name and niece are mentioned. She received daily visit for sensory stimulation, TV,music, hand massage, reality orientation. Continue to provide these activities as needed .
--- NOTE | 2019-07-12 17:46 | NUR ---
RT NOTE RECEIVED PATIENT ON TRACH WITH MECHANICAL VENTILATOR. TRACH IS PATENT AND SECURED. SPARE TRACH AND BVM IS AT BEDSIDE. ALARMS ARE SET AND AUDIBLE. VENTILATOR IS PLUGGED TO RED OUTLET. PATIENT HAS EQUAL CHEST RISE WITH COARSE BILATERAL BREATH SOUNDS. SUCTION SMALL AMOUNT OF THIN WHITE SECRETIONS THROUGH OUT THE DAY. Q6 BREATHING TREATMENTS GIVEN WITH NO ADVERSE REACTIONS. Addendum: 07/12/19 at 1747 by DAVE HICKMAN RT Amended: Links added.
[2019-07-12] MEDS: INSULIN REGULAR, HUMAN 100 UNIT/ML 3 ML VIAL SQ PRN (18:18)
[2019-07-12 20:47] VITALS: BP 138/73
[2019-07-12] MEDS: ASCORBIC ACID 500 MG TABLET GT SCH (20:58)
[2019-07-12] MEDS: INSULIN GLARGINE, 100 UNIT/ML CARTRIDGE SQ SCH (21:39)
[2019-07-13] MEDS: INSULIN REGULAR, HUMAN 100 UNIT/ML 3 ML VIAL SQ PRN ×3 (00:26→23:20)
[2019-07-13] MEDS: BLOOD SUGAR DIAGNOSTIC 1 EACH STRIP IN SCH ×5 (00:26→23:20)
[2019-07-13] MEDS: METOCLOPRAMIDE HCL 10 MG TABLET GT SCH ×5 (00:26→23:20)
[2019-07-13] MEDS: ALBUTEROL FS 2.5 MG/3 ML VIAL.NEB NEB SCH ×4 (01:19→19:45)
[2019-07-13] MEDS: GABAPENTIN 250 MG/5 ML SOLUTION GT SCH ×3 (05:31→21:11)
[2019-07-13] MEDS: OMEPRAZOLE 20 MG CAPSULE.DR GT SCH (05:32)
[2019-07-13 07:54] VITALS: BP 128/60
[2019-07-13] MEDS: HYDROGEN PEROXIDE 480 ML BOTTLE TP SCH ×2 (08:09→19:46)
[2019-07-13] MEDS: MULTIVIT W/MINERALS 1 TAB TABLET GT SCH (09:00)
[2019-07-13] MEDS: VITAMINS A AND D 56.7 GM TUBE TP SCH ×2 (09:00→21:13)
[2019-07-13] MEDS: SENNOSIDES 8.6 MG TABLET GT SCH ×2 (09:00→21:11)
[2019-07-13] MEDS: DOCUSATE SODIUM LIQ 100 MG/10 ML UDC GT SCH (09:00)
[2019-07-13] MEDS: FERROUS SULFATE UDC 300 MG/5 ML UDC GT SCH ×2 (09:00→17:00)
[2019-07-13] MEDS: Z GUARD REMEDY 4 OZ OINT TP SCH ×4 (09:00→21:13)
[2019-07-13] MEDS: HYDROGEL DRESSING 90 GM TUBE TP SCH ×2 (09:00→21:12)
[2019-07-13] MEDS: CALCIUM CARBONATE 500 MG TAB.CHEW GT SCH ×2 (09:00→17:00)
[2019-07-13] MEDS: LEVETIRACETAM SOL (5 ML) 100 MG/ML UDC GT SCH ×2 (09:00→21:11)
[2019-07-13] MEDS: ACIDOPHILUS/BULGARICUS 1 EACH TAB.CHEW GT SCH ×2 (09:00→17:00)
[2019-07-13] MEDS: SIMETHICONE SUSP 40 MG/0.6 ML BOTTLE GT SCH ×2 (09:00→21:11)
[2019-07-13] MEDS: TRILEPTAL GT SCH ×2 (09:00→21:11)
[2019-07-13] MEDS: HEPARIN SODIUM, PORCINE 5000 UNITS/1 ML VIAL SQ SCH ×2 (09:00→21:12)
[2019-07-13] MEDS: GLUCERNA 1.2 1,000 ML BOTTLE GT PRN (11:01)
--- NOTE | 2019-07-13 15:55 | NUR ---
The patient's Conservator, Beckiesandro Chu [phone] visited the pt. today and asked SW for a copy of Documentation of Preferred Intensity of Care, Statement of Rehab Potential, Patient's Right's Acknowledgement, and Voluntary Prior Express Consent form. STEPHEN provided a copy of the signed documents to Bekcie. Beckie expressed gratitude. Beckie also informed STEPHEN that she will be present at the patient's next IDT Plan of Care Conference on 07/15/2019. Noted.
[2019-07-13 20:06] VITALS: BP 122/77
[2019-07-13] MEDS: ASCORBIC ACID 500 MG TABLET GT SCH (21:11)
[2019-07-13] MEDS: INSULIN GLARGINE, 100 UNIT/ML CARTRIDGE SQ SCH (21:16)
[2019-07-14] MEDS: ALBUTEROL FS 2.5 MG/3 ML VIAL.NEB NEB SCH ×4 (01:46→20:03)
[2019-07-14] MEDS: GABAPENTIN 250 MG/5 ML SOLUTION GT SCH ×3 (05:39→21:02)
[2019-07-14] MEDS: METOCLOPRAMIDE HCL 10 MG TABLET GT SCH ×4 (05:39→23:20)
[2019-07-14] MEDS: OMEPRAZOLE 20 MG CAPSULE.DR GT SCH (05:39)
[2019-07-14] MEDS: BLOOD SUGAR DIAGNOSTIC 1 EACH STRIP IN SCH ×4 (05:39→23:20)
[2019-07-14] MEDS: INSULIN REGULAR, HUMAN 100 UNIT/ML 3 ML VIAL SQ PRN ×4 (05:40→23:21)
[2019-07-14] MEDS: GLUCERNA 1.2 1,000 ML BOTTLE GT PRN ×2 (05:40→18:05)
[2019-07-14 07:13] LABS: ALBUMIN 2.7 g/dL (3.4-5.0); BILIRUBIN,TOTAL 0.2 mg/dL (0.2-1.0); CALCIUM, SERUM 11.5 mg/dL (8.5-10.1); CREATININE 3.3 mg/dL (0.6-1.3); MAGNESIUM 2.7 mg/dL (1.8-2.4); PHOSPHORUS 5.3 mg/dL (2.5-4.9); POTASSIUM 3.7 mmol/L (3.5-5.1); TOTAL PROTEIN, SERUM 9.9 g/dL (6.4-8.2)
[2019-07-14 07:38] VITALS: BP 122/66
[2019-07-14 08:43] LABS: BASOPHILS # (AUTO) 0.1 /CMM (0.0-0.2); BASOPHILS % (AUTO) 0.9 % (0.0-2.0); EOSINOPHILS % (AUTO) 4.4 % (0.0-6.0); HEMATOCRIT 22 % (33-45); HEMOGLOBIN 7.7 g/dL (11.5-14.8); LYMPHOCYTES # (AUTO) 4.9 /CMM (0.8-4.8); LYMPHOCYTES % (AUTO) 33.6 % (20.0-44.0); MEAN CORPUSCULAR HGB CONC 35 g/dl (31.0-36.0); MEAN CORPUSCULAR VOLUME 103 fL (82-100); MONOCYTES # (AUTO) 1.2 /CMM (0.1-1.30); MONOCYTES % (AUTO) 7.9 % (2.0-12.0); NEUTROPHILS # (AUTO) 7.8 /CMM (1.8-8.9); NEUTROPHILS % (AUTO) 53.2 % (43.0-81.0); PLATELET COUNT (AUTO) 441 /CMM (150-450); WHITE BLOOD COUNT (AUTO) 14.7 K/uL (4.3-11.0)
[2019-07-14] MEDS: TRILEPTAL GT SCH ×2 (09:00→21:02)
[2019-07-14] MEDS: CALCIUM CARBONATE 500 MG TAB.CHEW GT SCH ×2 (09:00→17:00)
[2019-07-14] MEDS: VITAMINS A AND D 56.7 GM TUBE TP SCH ×2 (09:00→21:03)
[2019-07-14] MEDS: FERROUS SULFATE UDC 300 MG/5 ML UDC GT SCH ×2 (09:00→17:00)
[2019-07-14] MEDS: ACIDOPHILUS/BULGARICUS 1 EACH TAB.CHEW GT SCH ×2 (09:00→17:00)
[2019-07-14] MEDS: SIMETHICONE SUSP 40 MG/0.6 ML BOTTLE GT SCH ×2 (09:00→21:02)
[2019-07-14] MEDS: DOCUSATE SODIUM LIQ 100 MG/10 ML UDC GT SCH (09:00)
[2019-07-14] MEDS: HYDROGEL DRESSING 90 GM TUBE TP SCH ×2 (09:00→21:03)
[2019-07-14] MEDS: HEPARIN SODIUM, PORCINE 5000 UNITS/1 ML VIAL SQ SCH (09:00)
[2019-07-14] MEDS: Z GUARD REMEDY 4 OZ OINT TP SCH ×4 (09:00→21:03)
[2019-07-14] MEDS: MULTIVIT W/MINERALS 1 TAB TABLET GT SCH (09:00)
[2019-07-14] MEDS: SENNOSIDES 8.6 MG TABLET GT SCH ×2 (09:00→21:03)
[2019-07-14] MEDS: LEVETIRACETAM SOL (5 ML) 100 MG/ML UDC GT SCH ×2 (09:00→21:02)
--- NOTE | 2019-07-14 09:50 | NUR ---
Notified Dr. Montaño that pt's nephrostomy tube might not in be in place d/t minimal output noted since last night. No drainage or bleeding from nephrostomy tube insertion site. Order obtained for STAT KUB. Order carried out.
--- NOTE | 2019-07-14 12:01 | NUR ---
Noted pt's nephrostomy tube to be dislodged, tip intact. Minimal bleeding from nephrostomy tube insertion site noted. Dr. Luis notified and order obtained to have IR replace nephrostomy tube. Called Shaila from admitting department, per Shaila no need for new account for pt. Awaiting schedule for nephrostomy tube replacement. Called pt's sister Beckie, left voicemail to call [facility] back.
[2019-07-14] MEDS: HYDROGEN PEROXIDE 480 ML BOTTLE TP SCH ×2 (12:56→20:04)
--- NOTE | 2019-07-14 13:20 | NUR ---
Pt's sister Beckie called back and informed her of dislodgement of nephrostomy tube and pt will be scheduled for placement. Verbalized understanding, consent obtained.
--- NOTE | 2019-07-14 13:42 | NUR ---
Received a call from Amarilys (radiology dept) regarding schedule for nephrostomy tube placement. Pt scheduled for tomorrow AM. Hold heparin until after procedure, labs to be done in AM: PT, PTT, INR; NPO after midnight. All orders carried out. Pt's sister Beckie notified via voicemail.
--- NOTE | 2019-07-14 15:32 | NUR ---
RT NOTE: PATIENT RECEIVED TRACHED ON MECHANICAL VENT. ALARMS VERIFIED AND AUDIBLE. NEW TRACH AND AMBU BAG AT [facility].
[2019-07-14] MEDS ORDERED: IV D5/ 0.9% NACL 1,000 ML IV PRN (18:00)
--- NOTE | 2019-07-14 18:12 | NUR ---
Order obtained from Dr. Hathaway to start pt on IV D5NS at 60cc/hr to start when pt is on NPO for nephrostomy tube placement. Order carried out. Spoke with Sidney from [employer], verified that IV covered, start IV from e-kit and she will send an additional bag later today.
--- NOTE | 2019-07-14 20:00 | NUR ---
Right cheek abrasion cleanse with NS ,pat dry,apply triple antibiotic QS x 7 days per MD orders.
--- NOTE | 2019-07-14 20:42 | NUR ---
RT NOTE PT RECEIVED AWAKE/NONVERBAL TRACHED ON MECHANICAL VENTILATION. AMBU BAG/BACK UP TRACH @ BEDSIDE. TX GIVEN, NO ADVERSE REACTIONS NOTED. SX DONE, TRACH SECURED AND PATENT. ALARMS ON AND AUDIBLE. NO SOB NOTED AT THIS TIME. WILL CONTINUE TO MONITOR T/O SHIFT. Addendum: 07/14/19 at 2043 by BRIEN NEAL RT Amended: Links added.
[2019-07-14] MEDS: ASCORBIC ACID 500 MG TABLET GT SCH (21:03)
[2019-07-14] MEDS: INSULIN GLARGINE, 100 UNIT/ML CARTRIDGE SQ SCH (21:04)
[2019-07-15] MEDS: ALBUTEROL FS 2.5 MG/3 ML VIAL.NEB NEB SCH ×4 (01:51→19:37)
[2019-07-15] MEDS: BLOOD SUGAR DIAGNOSTIC 1 EACH STRIP IN SCH ×4 (05:38→23:24)
[2019-07-15] MEDS: METOCLOPRAMIDE HCL 10 MG TABLET GT SCH ×4 (05:38→23:24)
[2019-07-15] MEDS: OMEPRAZOLE 20 MG CAPSULE.DR GT SCH (05:38)
[2019-07-15] MEDS: GABAPENTIN 250 MG/5 ML SOLUTION GT SCH ×3 (05:38→20:35)
[2019-07-15] MEDS: INSULIN REGULAR, HUMAN 100 UNIT/ML 3 ML VIAL SQ PRN ×3 (05:39→23:25)
[2019-07-15 07:39] VITALS: BP 122/73
[2019-07-15] MEDS: MULTIVIT W/MINERALS 1 TAB TABLET GT SCH (09:00)
[2019-07-15] MEDS: HYDROGEN PEROXIDE 480 ML BOTTLE TP SCH ×2 (09:00→21:04)
--- NOTE | 2019-07-15 09:25 | NUR ---
At 08:54, was called to the patient's room. Resident found unresponsive and not responding to deep stimulation. According to the RIVER EXPEDITION GUIDE in the room, he was doing AM care, patient is awake at that time. Then ventilator alarm went off. SPOUT TENDER went to the room, found patient unresponsive with her lips and face very pale. Respiratory therapist was called and RN at bedside. Patient not responding to deep stimulation. RR was called. Immediately Ambu bagged patient with 100% 02, and VS taken simultaneously 144/82, HR 98, O2 sat 100%. After bagging patient for a minute, resident slowly responding to deep stimulation, opening eyes during suctioning. Place her back on ventilator with same setting. Dr. Luis notified of the episode and made aware that patient is schedule for nephrostomy tube placement today. He said it is OK to proceed, with order for Keppra and Trileptal level. Notified Dr. Malave, neurologist of the episode and the level ordered by Dr. Luis. No other order given. Resident returned back to her baseline about 5 minutes later, she is observed smiling and following commands from staff by giving "high fives". Spoke with Dr. Lester from Interventional Radiology and made aware of the episode that Dr. Luis gave clearance to proceed with the procedure. He said that they will do it later today. VS 98.4, 150/75, 100%, RR 16.
[2019-07-15] MEDS: TRILEPTAL GT SCH ×2 (09:39→20:36)
[2019-07-15] MEDS: LEVETIRACETAM SOL (5 ML) 100 MG/ML UDC GT SCH ×2 (09:39→20:35)
--- NOTE | 2019-07-15 09:49 | NUR ---
Informed resident's sister Beckie that patient had an episode of unresponsiveness for about 5 minutes, VS WNL and opening eyes with deep stimulation. Patient is now back to her baseline smiling and following simple commands. Informed patient's sister that Dr. Luis was notified and said it is OK to proceed with procedure (nephrostomy tube placement) today and gave an order to check Keppra and Trileptal level. Left a message to Dr. Malave, neurologist of episode of unresponsiveness. Beckie also made aware of the abrasion noted in the R side of the face, she said that she noted one on the L cheek and the forehead which she said is from the splint when she moves her arms. Local treatment initiated.
--- NOTE | 2019-07-15 11:30 | NUR ---
Left for US guided L nephrostomy tube placement, patient taken to radiology accompanied by RT and RN in stable condition, VS 118/70, 100%, HR79, RR 16.
[2019-07-15] MEDS ORDERED: FENTANYL PF 250MCG/5ML AMPUL IV ONE (12:00)
[2019-07-15] MEDS ORDERED: NALOXONE PREFILLED SYRINGE 2 MG/2 ML SYRINGE IV ONE (12:00)
[2019-07-15] MEDS ORDERED: MIDAZOLAM HCL 5MG/ML VIAL 25 MG/5 ML VIAL IV ONE (12:00)
--- NOTE | 2019-07-15 13:19 | NUR ---
US and Ct guided Nephrostomy tube placement done , Left; pt tolerated procedure; VSS; [facility]. No sedation given during procedure. report given to floor RN
[2019-07-15] MEDS: DOCUSATE SODIUM LIQ 100 MG/10 ML UDC GT SCH (13:50)
[2019-07-15] MEDS: SENNOSIDES 8.6 MG TABLET GT SCH ×2 (13:50→20:36)
[2019-07-15] MEDS: SIMETHICONE SUSP 40 MG/0.6 ML BOTTLE GT SCH ×2 (13:50→20:35)
[2019-07-15] MEDS: ACIDOPHILUS/BULGARICUS 1 EACH TAB.CHEW GT SCH ×2 (13:50→17:53)
[2019-07-15] MEDS: CALCIUM CARBONATE 500 MG TAB.CHEW GT SCH ×2 (13:50→17:53)
[2019-07-15] MEDS: FERROUS SULFATE UDC 300 MG/5 ML UDC GT SCH ×2 (13:50→17:53)
--- NOTE | 2019-07-15 14:00 | NUR ---
Resident returned back from procedure with L nephrostomy tube in place. Resident's sister at bedside and seen R cheek abrasion. Patient awake, responsive and following simple command. VS 106/59, 97, 98, RR 16.
[2019-07-15] MEDS: VITAMINS A AND D 56.7 GM TUBE TP SCH ×2 (14:35→20:37)
[2019-07-15] MEDS: Z GUARD REMEDY 4 OZ OINT TP SCH ×4 (14:35→20:36)
[2019-07-15] MEDS: HYDROGEL DRESSING 90 GM TUBE TP SCH ×2 (14:35→20:36)
[2019-07-15] MEDS: BACI/NEOM/POLY B OINT PKT 1 UDPKT PACKET TP SCH ×2 (14:35→20:36)
--- NOTE | 2019-07-15 15:13 | NUR ---
INTERDISCIPLINARY PLAN OF CARE CONFERENCE was held today. The patients conservator, Beckie Chu was in attendance. Charge discussed episode of non-responsiveness and rapid response was called; 06/29/[address] Tx:Hydrogel & Mepilex; 07/01 gluteal crease incontinence tx: zguard ; nephrostomy dislodged 07/14/2019 [address] procedure took place today 07/15/2019. Dr. Felix and Interdisciplinary team discussed the plan of care in detail. Current orders as well as treatments and medications were reviewed. Beckie requested that Dr. Luis contact her. Please see other disciplines IDT notes for further details.
[2019-07-15] MEDS: MAGNESIUM HYDROXIDE 30 ML UDC GT PRN (18:44)
[2019-07-15 20:00] VITALS: BP 133/73
[2019-07-15] MEDS: ASCORBIC ACID 500 MG TABLET GT SCH (20:36)
[2019-07-15] MEDS: INSULIN GLARGINE, 100 UNIT/ML CARTRIDGE SQ SCH (22:25)
[2019-07-16] MEDS: ALBUTEROL FS 2.5 MG/3 ML VIAL.NEB NEB SCH ×3 (01:30→19:33)
[2019-07-16] MEDS: GLUCERNA 1.2 1,000 ML BOTTLE GT PRN ×2 (05:30→23:21)
[2019-07-16] MEDS: METOCLOPRAMIDE HCL 10 MG TABLET GT SCH ×4 (05:30→23:21)
[2019-07-16] MEDS: OMEPRAZOLE 20 MG CAPSULE.DR GT SCH (05:30)
[2019-07-16] MEDS: BLOOD SUGAR DIAGNOSTIC 1 EACH STRIP IN SCH ×4 (05:30→23:21)
[2019-07-16] MEDS: GABAPENTIN 250 MG/5 ML SOLUTION GT SCH ×3 (05:30→20:28)
[2019-07-16] MEDS: INSULIN REGULAR, HUMAN 100 UNIT/ML 3 ML VIAL SQ PRN ×2 (05:30→23:21)
--- NOTE | 2019-07-16 05:47 | NUR ---
Pt remains afebrile, no acute respiratory distress noted, tolerated meds, gtf and txs. Nephrostomy intact,in place and secured,still noted with hematuria (s/p insertion yesterday), flushed tubing with 10 cc saline, maher catheter draining well with yellow urine. Pt's ventilator was beeping this am continuously for few seconds - checked on pt - pt was erica with no s/sx of distress, ventilator machine screen display saying"Power Lost" checked plug and connections - plugged noted to red outlet, RT was called to do ventilator check, RT came and did resp care and vent check- no more beeping noted after, all safety alarms checked and noted. Cont to monitor pt.
[2019-07-16 07:43] VITALS: BP 126/78
[2019-07-16] MEDS: HYDROGEN PEROXIDE 480 ML BOTTLE TP SCH ×2 (08:14→21:55)
[2019-07-16] MEDS: TRILEPTAL GT SCH ×2 (09:51→20:28)
[2019-07-16] MEDS: MULTIVIT W/MINERALS 1 TAB TABLET GT SCH (09:51)
[2019-07-16] MEDS: ACIDOPHILUS/BULGARICUS 1 EACH TAB.CHEW GT SCH ×2 (09:51→17:38)
[2019-07-16] MEDS: FERROUS SULFATE UDC 300 MG/5 ML UDC GT SCH ×2 (09:51→17:38)
[2019-07-16] MEDS: LEVETIRACETAM SOL (5 ML) 100 MG/ML UDC GT SCH ×2 (09:51→20:28)
[2019-07-16] MEDS: SENNOSIDES 8.6 MG TABLET GT SCH ×2 (09:51→20:28)
[2019-07-16] MEDS: SIMETHICONE SUSP 40 MG/0.6 ML BOTTLE GT SCH ×2 (09:51→20:28)
[2019-07-16] MEDS: DOCUSATE SODIUM LIQ 100 MG/10 ML UDC GT SCH (09:51)
[2019-07-16] MEDS: CALCIUM CARBONATE 500 MG TAB.CHEW GT SCH ×2 (09:51→17:38)
[2019-07-16] MEDS: HYDROGEL DRESSING 90 GM TUBE TP SCH ×2 (10:30→20:28)
[2019-07-16] MEDS: VITAMINS A AND D 56.7 GM TUBE TP SCH ×2 (10:30→20:28)
[2019-07-16] MEDS: Z GUARD REMEDY 4 OZ OINT TP SCH ×4 (10:30→20:28)
[2019-07-16] MEDS: BACI/NEOM/POLY B OINT PKT 1 UDPKT PACKET TP SCH ×2 (10:30→20:28)
--- NOTE | 2019-07-16 17:42 | NUR ---
RT NOTE PATIENT RECEIVED ON MECHANICAL VENTILATOR WITH ORDERED SETTINGS. ALARMS ON AND AUDIBLE. VENT PLUGGED IN TO THE RED OUTLET. TRACH TUBE IN PLACE, PATENT, AND SECURED WITH TRACH TIE. BACK UP TRACH AND AMBU BAG BY THE BEDSIDE. SHOWS NO SIGN OF ANY DISTRESS AT THIS TIME.
--- NOTE | 2019-07-16 19:55 | NUR ---
PT RECEIVED TRACHED ON [facility] VENT ON MD ORDERED SETTINGS. NO SIGNS OF RESP DISTRESS/SOB NOTED. AIRWAY PATENT AND SECURED. MISSION SUPPORT SPECIALIST DONE. ALARMS SET AND AUDIBLE. AMBUBAG AND SPARE TRACH AT BEDSIDE. VENT CONNECTED TO RED OUTLET. Addendum: 07/16/19 at 1956 by ALIA TEIXEIRA RT Amended: Links added.
[2019-07-16 20:09] VITALS: BP 106/64
[2019-07-16] MEDS: ASCORBIC ACID 500 MG TABLET GT SCH (20:28)
[2019-07-16] MEDS: INSULIN GLARGINE, 100 UNIT/ML CARTRIDGE SQ SCH (21:06)
[2019-07-17] MEDS: ALBUTEROL FS 2.5 MG/3 ML VIAL.NEB NEB SCH ×4 (00:59→19:40)
[2019-07-17] MEDS: OMEPRAZOLE 20 MG CAPSULE.DR GT SCH (05:06)
[2019-07-17] MEDS: GABAPENTIN 250 MG/5 ML SOLUTION GT SCH ×3 (05:06→20:58)
[2019-07-17] MEDS: METOCLOPRAMIDE HCL 10 MG TABLET GT SCH ×3 (05:06→17:06)
[2019-07-17] MEDS: BLOOD SUGAR DIAGNOSTIC 1 EACH STRIP IN SCH ×3 (05:19→17:48)
[2019-07-17] MEDS: INSULIN REGULAR, HUMAN 100 UNIT/ML 3 ML VIAL SQ PRN (05:19)
[2019-07-17 07:36] VITALS: BP 89/48
[2019-07-17] MEDS: HYDROGEN PEROXIDE 480 ML BOTTLE TP SCH ×2 (09:44→21:02)
[2019-07-17] MEDS: SIMETHICONE SUSP 40 MG/0.6 ML BOTTLE GT SCH ×2 (09:48→20:58)
[2019-07-17] MEDS: DOCUSATE SODIUM LIQ 100 MG/10 ML UDC GT SCH (09:48)
[2019-07-17] MEDS: TRILEPTAL GT SCH ×2 (09:48→20:58)
[2019-07-17] MEDS: FERROUS SULFATE UDC 300 MG/5 ML UDC GT SCH ×2 (09:48→17:06)
[2019-07-17] MEDS: LEVETIRACETAM SOL (5 ML) 100 MG/ML UDC GT SCH ×2 (09:48→20:58)
[2019-07-17] MEDS: ACIDOPHILUS/BULGARICUS 1 EACH TAB.CHEW GT SCH ×2 (09:48→17:06)
[2019-07-17] MEDS: SENNOSIDES 8.6 MG TABLET GT SCH ×2 (09:48→20:58)
[2019-07-17] MEDS: CALCIUM CARBONATE 500 MG TAB.CHEW GT SCH ×2 (09:49→17:06)
[2019-07-17] MEDS: BACI/NEOM/POLY B OINT PKT 1 UDPKT PACKET TP SCH ×2 (09:49→20:59)
[2019-07-17] MEDS: Z GUARD REMEDY 4 OZ OINT TP SCH ×4 (09:49→20:59)
[2019-07-17] MEDS: HYDROGEL DRESSING 90 GM TUBE TP SCH ×2 (09:49→20:59)
[2019-07-17] MEDS: VITAMINS A AND D 56.7 GM TUBE TP SCH ×2 (09:49→20:59)
[2019-07-17] MEDS: MULTIVIT W/MINERALS 1 TAB TABLET GT SCH (09:49)
[2019-07-17 19:50] VITALS: BP 131/58
[2019-07-17] MEDS: ASCORBIC ACID 500 MG TABLET GT SCH (20:59)
[2019-07-17] MEDS: GLUCERNA 1.2 1,000 ML BOTTLE GT PRN (21:06)
[2019-07-17] MEDS: INSULIN GLARGINE, 100 UNIT/ML CARTRIDGE SQ SCH (21:22)
[2019-07-18] MEDS: BLOOD SUGAR DIAGNOSTIC 1 EACH STRIP IN SCH ×4 (00:43→17:48)
[2019-07-18] MEDS: INSULIN REGULAR, HUMAN 100 UNIT/ML 3 ML VIAL SQ PRN ×3 (00:43→17:49)
[2019-07-18] MEDS: METOCLOPRAMIDE HCL 10 MG TABLET GT SCH ×4 (00:43→17:28)
[2019-07-18] MEDS: ALBUTEROL FS 2.5 MG/3 ML VIAL.NEB NEB SCH ×4 (01:31→20:24)
[2019-07-18] MEDS: GABAPENTIN 250 MG/5 ML SOLUTION GT SCH ×3 (05:34→20:48)
[2019-07-18] MEDS: OMEPRAZOLE 20 MG CAPSULE.DR GT SCH (05:35)
[2019-07-18 08:00] VITALS: BP 115/80
[2019-07-18] MEDS: HYDROGEN PEROXIDE 480 ML BOTTLE TP SCH ×2 (08:17→21:00)
[2019-07-18] MEDS: FERROUS SULFATE UDC 300 MG/5 ML UDC GT SCH ×2 (09:00→16:06)
[2019-07-18] MEDS: CALCIUM CARBONATE 500 MG TAB.CHEW GT SCH ×2 (09:00→16:06)
[2019-07-18] MEDS: LEVETIRACETAM SOL (5 ML) 100 MG/ML UDC GT SCH ×2 (09:00→20:47)
[2019-07-18] MEDS: BACI/NEOM/POLY B OINT PKT 1 UDPKT PACKET TP SCH ×2 (09:00→20:50)
[2019-07-18] MEDS: HYDROGEL DRESSING 90 GM TUBE TP SCH ×2 (09:00→20:50)
[2019-07-18] MEDS: ACIDOPHILUS/BULGARICUS 1 EACH TAB.CHEW GT SCH ×2 (09:00→16:06)
[2019-07-18] MEDS: MULTIVIT W/MINERALS 1 TAB TABLET GT SCH (09:00)
[2019-07-18] MEDS: SIMETHICONE SUSP 40 MG/0.6 ML BOTTLE GT SCH ×2 (09:00→20:48)
[2019-07-18] MEDS: TRILEPTAL GT SCH ×2 (09:00→20:48)
[2019-07-18] MEDS: DOCUSATE SODIUM LIQ 100 MG/10 ML UDC GT SCH (09:00)
[2019-07-18] MEDS: Z GUARD REMEDY 4 OZ OINT TP SCH ×4 (09:00→20:50)
[2019-07-18] MEDS: VITAMINS A AND D 56.7 GM TUBE TP SCH ×2 (09:00→20:50)
[2019-07-18] MEDS: SENNOSIDES 8.6 MG TABLET GT SCH ×2 (09:00→20:49)
--- NOTE | 2019-07-18 10:14 | NUR ---
Spoke with Didi, Infection control nurse and made aware that urine culture from nephrostomy tube is negative for ESBL. She said the it is OK to DC isolation. MD informed and resident's sister notified regarding discontinuation of isolation. She said that she took some of her belongings and will bring them back. She was made aware that after discontinuation of isolation protocol is completed, patient will be move back to her previous room. Endorsed.
--- NOTE | 2019-07-18 14:30 | NUR ---
Seen and examined by INTEGRATION ARCHITECT Anna Vargas and Dr. Luis, no new order given. Blood sugar reviewed by Anna Vargas, NAN and changed FSBS to Q 12 hours with same coverage. Dr. Luis seen nephrostomy bag with pinkish urine output, Heparin still on hold, he said to monitor for 1-2 days and reassess if no further bleeding to restart Heparin. Dr. Luis also gave an order to reculture nares for MRSA clearance. Keppra and Trileptal level still pending at this time. Beckie verbalized during IDT meeting that she would like to ask Dr. Lusi how long should the patient keep the nephrostomy tube. Dr. Luis said he will call patient's sister to answer her questions.
--- NOTE | 2019-07-18 15:19 | NUR ---
RT NOTE PT RECEIVED TRACH'D ON MECHANICAL VENTILATION. AMBU BAG/BACK UP TRACH @ BEDSIDE. TX GIVEN, NO ADVERSE REACTIONS NOTED. SX DONE, TRACH SECURED AND PATENT. ALARMS ON AND AUDIBLE. NO SOB NOTED T/O SHIFT. Addendum: 07/18/19 at 1756 by JULIETH REY RT Amended: Links added.
[2019-07-18] MEDS: GLUCERNA 1.2 1,000 ML BOTTLE GT PRN (16:04)
[2019-07-18 20:02] VITALS: BP 133/77
--- NOTE | 2019-07-18 20:22 | NUR ---
RT pt received on current vent settings. trached with shiley 8 xlt. hob at 30 degrees. vent plugged in to red outlet. ambu bag at head of bed. spare trach at bedside. alarms on and audible. minimal secretions. equal and bilateral chest rise. no sob. no resp distress. will continue to monitor Addendum: 07/18/19 at 2347 by BELKIS BETHEA RT Amended: Links added.
[2019-07-18] MEDS: ASCORBIC ACID 500 MG TABLET GT SCH (20:50)
[2019-07-18] MEDS: INSULIN GLARGINE, 100 UNIT/ML CARTRIDGE SQ SCH (21:42)
[2019-07-19] MEDS: METOCLOPRAMIDE HCL 10 MG TABLET GT SCH ×4 (00:42→17:10)
[2019-07-19] MEDS: ALBUTEROL FS 2.5 MG/3 ML VIAL.NEB NEB SCH ×4 (02:26→19:29)
[2019-07-19] MEDS: GABAPENTIN 250 MG/5 ML SOLUTION GT SCH ×3 (05:24→20:43)
[2019-07-19] MEDS: OMEPRAZOLE 20 MG CAPSULE.DR GT SCH (05:25)
[2019-07-19] MEDS: BLOOD SUGAR DIAGNOSTIC 1 EACH STRIP IN SCH ×2 (05:25→17:19)
[2019-07-19] MEDS: INSULIN REGULAR, HUMAN 100 UNIT/ML 3 ML VIAL SQ PRN ×2 (05:26→17:19)
[2019-07-19] MEDS: HYDROGEN PEROXIDE 480 ML BOTTLE TP SCH ×2 (07:22→21:00)
[2019-07-19 07:53] VITALS: BP 130/63
[2019-07-19 08:15] LABS: BASOPHILS # (AUTO) 0.1 /CMM (0.0-0.2); BASOPHILS % (AUTO) 0.7 % (0.0-2.0); EOSINOPHILS % (AUTO) 5.9 % (0.0-6.0); HEMATOCRIT 24 % (33-45); LYMPHOCYTES # (AUTO) 3.2 /CMM (0.8-4.8); LYMPHOCYTES % (AUTO) 32.2 % (20.0-44.0); MEAN CORPUSCULAR HGB CONC 34 g/dl (31.0-36.0); MEAN CORPUSCULAR VOLUME 103 fL (82-100); MONOCYTES # (AUTO) 0.7 /CMM (0.1-1.30); MONOCYTES % (AUTO) 7.5 % (2.0-12.0); NEUTROPHILS # (AUTO) 5.3 /CMM (1.8-8.9); NEUTROPHILS % (AUTO) 53.7 % (43.0-81.0); PLATELET COUNT (AUTO) 385 /CMM (150-450); RED BLOOD CELL COUNT(AUTO) 2.29 MIL/uL (4.0-5.2); WHITE BLOOD COUNT (AUTO) 9.8 K/uL (4.3-11.0)
[2019-07-19] MEDS: HYDROGEL DRESSING 90 GM TUBE TP SCH ×2 (09:00→20:45)
[2019-07-19] MEDS: Z GUARD REMEDY 4 OZ OINT TP SCH ×4 (09:00→20:45)
[2019-07-19] MEDS: BACI/NEOM/POLY B OINT PKT 1 UDPKT PACKET TP SCH ×2 (09:00→20:45)
[2019-07-19] MEDS: VITAMINS A AND D 56.7 GM TUBE TP SCH ×2 (09:00→20:45)
[2019-07-19 09:01] LABS: CALCIUM, SERUM 11.2 mg/dL (8.5-10.1); CREATININE 3.2 mg/dL (0.6-1.3); MAGNESIUM 2.9 mg/dL (1.8-2.4); PHOSPHORUS 5.4 mg/dL (2.5-4.9); POTASSIUM 3.8 mmol/L (3.5-5.1)
[2019-07-19] MEDS: CALCIUM CARBONATE 500 MG TAB.CHEW GT SCH ×2 (09:23→16:05)
[2019-07-19] MEDS: ACIDOPHILUS/BULGARICUS 1 EACH TAB.CHEW GT SCH ×2 (09:23→16:05)
[2019-07-19] MEDS: LEVETIRACETAM SOL (5 ML) 100 MG/ML UDC GT SCH ×2 (09:23→20:41)
[2019-07-19] MEDS: MULTIVIT W/MINERALS 1 TAB TABLET GT SCH (09:23)
[2019-07-19] MEDS: DOCUSATE SODIUM LIQ 100 MG/10 ML UDC GT SCH (09:23)
[2019-07-19] MEDS: FERROUS SULFATE UDC 300 MG/5 ML UDC GT SCH ×2 (09:23→16:05)
[2019-07-19] MEDS: SIMETHICONE SUSP 40 MG/0.6 ML BOTTLE GT SCH ×2 (09:23→20:43)
[2019-07-19] MEDS: SENNOSIDES 8.6 MG TABLET GT SCH ×2 (09:23→20:44)
[2019-07-19] MEDS: TRILEPTAL GT SCH ×2 (09:23→20:44)
[2019-07-19] MEDS: GLUCERNA 1.2 1,000 ML BOTTLE GT PRN (13:53)
--- NOTE | 2019-07-19 14:23 | NUR ---
Informed infection control nurse Didi that pt's urine culture from nephrostomy tube is negative but urine from Bourgeois catheter was ESBL positive. Didi said to keep pt on contact isolation and it is up to the doctor if urine will be recultured. Referred to Dr Luis. He ordered urine culture (from Bourgeois catheter) for ESBL clearance.
[2019-07-19 20:28] VITALS: BP 134/68
[2019-07-19] MEDS: ASCORBIC ACID 500 MG TABLET GT SCH (20:44)
[2019-07-19] MEDS: INSULIN GLARGINE, 100 UNIT/ML CARTRIDGE SQ SCH (21:26)
[2019-07-20] MEDS: METOCLOPRAMIDE HCL 10 MG TABLET GT SCH ×4 (00:45→17:09)
[2019-07-20] MEDS: ALBUTEROL FS 2.5 MG/3 ML VIAL.NEB NEB SCH ×4 (01:48→19:44)
[2019-07-20] MEDS: GABAPENTIN 250 MG/5 ML SOLUTION GT SCH ×3 (05:34→20:43)
[2019-07-20] MEDS: OMEPRAZOLE 20 MG CAPSULE.DR GT SCH (05:35)
[2019-07-20] MEDS: BLOOD SUGAR DIAGNOSTIC 1 EACH STRIP IN SCH ×2 (05:35→17:44)
[2019-07-20] MEDS: INSULIN REGULAR, HUMAN 100 UNIT/ML 3 ML VIAL SQ PRN ×2 (05:36→17:47)
[2019-07-20] MEDS: GLUCERNA 1.2 1,000 ML BOTTLE GT PRN ×2 (05:38→21:12)
[2019-07-20 07:43] VITALS: BP 136/75
[2019-07-20] MEDS: HYDROGEN PEROXIDE 480 ML BOTTLE TP SCH ×2 (08:19→19:44)
[2019-07-20] MEDS: Z GUARD REMEDY 4 OZ OINT TP SCH ×4 (09:00→20:43)
[2019-07-20] MEDS: HYDROGEL DRESSING 90 GM TUBE TP SCH ×2 (09:00→20:43)
[2019-07-20] MEDS: BACI/NEOM/POLY B OINT PKT 1 UDPKT PACKET TP SCH ×2 (09:00→20:43)
[2019-07-20] MEDS: VITAMINS A AND D 56.7 GM TUBE TP SCH ×2 (09:00→20:44)
[2019-07-20] MEDS: ACIDOPHILUS/BULGARICUS 1 EACH TAB.CHEW GT SCH ×2 (09:21→17:09)
[2019-07-20] MEDS: TRILEPTAL GT SCH ×2 (09:21→20:43)
[2019-07-20] MEDS: MULTIVIT W/MINERALS 1 TAB TABLET GT SCH (09:21)
[2019-07-20] MEDS: FERROUS SULFATE UDC 300 MG/5 ML UDC GT SCH ×2 (09:21→17:09)
[2019-07-20] MEDS: SIMETHICONE SUSP 40 MG/0.6 ML BOTTLE GT SCH ×2 (09:21→20:43)
[2019-07-20] MEDS: CALCIUM CARBONATE 500 MG TAB.CHEW GT SCH ×2 (09:21→17:09)
[2019-07-20] MEDS: LEVETIRACETAM SOL (5 ML) 100 MG/ML UDC GT SCH ×2 (09:21→20:43)
[2019-07-20] MEDS: SENNOSIDES 8.6 MG TABLET GT SCH ×2 (09:21→20:43)
[2019-07-20] MEDS: DOCUSATE SODIUM LIQ 100 MG/10 ML UDC GT SCH (09:21)
--- NOTE | 2019-07-20 15:50 | NUR ---
Reported to Dr. Luis that patient still with hematuria, dark red in color. Heparin still on hold. NNO given at this time.
[2019-07-20 20:02] VITALS: BP 138/76
[2019-07-20] MEDS: ASCORBIC ACID 500 MG TABLET GT SCH (20:43)
[2019-07-20] MEDS: INSULIN GLARGINE, 100 UNIT/ML CARTRIDGE SQ SCH (22:26)
[2019-07-21] MEDS: METOCLOPRAMIDE HCL 10 MG TABLET GT SCH ×5 (00:23→23:38)
[2019-07-21] MEDS: ALBUTEROL FS 2.5 MG/3 ML VIAL.NEB NEB SCH ×4 (00:59→20:09)
[2019-07-21] MEDS: GABAPENTIN 250 MG/5 ML SOLUTION GT SCH ×3 (05:55→21:51)
[2019-07-21] MEDS: OMEPRAZOLE 20 MG CAPSULE.DR GT SCH (05:55)
[2019-07-21] MEDS: BLOOD SUGAR DIAGNOSTIC 1 EACH STRIP IN SCH ×2 (05:55→18:08)
[2019-07-21] MEDS: INSULIN REGULAR, HUMAN 100 UNIT/ML 3 ML VIAL SQ PRN ×2 (05:56→18:09)
--- NOTE | 2019-07-21 06:32 | NUR ---
PATIENT NEPHROSTOMY OUTPUT STILL WITH BLOODY, WILL CONTINUE TO MONITOR.
[2019-07-21 07:39] VITALS: BP 130/88
[2019-07-21 07:44] LABS: BASOPHILS # (AUTO) 0.1 /CMM (0.0-0.2); BASOPHILS % (AUTO) 0.9 % (0.0-2.0); HEMATOCRIT 22 % (33-45); HEMOGLOBIN 7.5 g/dL (11.5-14.8); LYMPHOCYTES # (AUTO) 3.2 /CMM (0.8-4.8); LYMPHOCYTES % (AUTO) 28.5 % (20.0-44.0); MEAN CORPUSCULAR HGB CONC 34 g/dl (31.0-36.0); MEAN CORPUSCULAR VOLUME 103 fL (82-100); MONOCYTES # (AUTO) 0.9 /CMM (0.1-1.30); MONOCYTES % (AUTO) 8.4 % (2.0-12.0); NEUTROPHILS # (AUTO) 6.2 /CMM (1.8-8.9); NEUTROPHILS % (AUTO) 56.2 % (43.0-81.0); PLATELET COUNT (AUTO) 413 /CMM (150-450); RED BLOOD CELL COUNT(AUTO) 2.13 MIL/uL (4.0-5.2); WHITE BLOOD COUNT (AUTO) 11.1 K/uL (4.3-11.0)
[2019-07-21 08:08] LABS: ALBUMIN 2.9 g/dL (3.4-5.0); BILIRUBIN,TOTAL 0.2 mg/dL (0.2-1.0); CALCIUM, SERUM 11.2 mg/dL (8.5-10.1); CREATININE 3.3 mg/dL (0.6-1.3); MAGNESIUM 2.9 mg/dL (1.8-2.4); PHOSPHORUS 4.7 mg/dL (2.5-4.9); POTASSIUM 3.9 mmol/L (3.5-5.1); TOTAL PROTEIN, SERUM 10.5 g/dL (6.4-8.2)
[2019-07-21] MEDS: HYDROGEN PEROXIDE 480 ML BOTTLE TP SCH ×2 (08:21→21:36)
[2019-07-21] MEDS: CALCIUM CARBONATE 500 MG TAB.CHEW GT SCH ×2 (09:27→17:32)
[2019-07-21] MEDS: SIMETHICONE SUSP 40 MG/0.6 ML BOTTLE GT SCH ×2 (09:27→21:51)
[2019-07-21] MEDS: LEVETIRACETAM SOL (5 ML) 100 MG/ML UDC GT SCH ×2 (09:27→21:51)
[2019-07-21] MEDS: MULTIVIT W/MINERALS 1 TAB TABLET GT SCH (09:27)
[2019-07-21] MEDS: ACIDOPHILUS/BULGARICUS 1 EACH TAB.CHEW GT SCH ×2 (09:27→17:32)
[2019-07-21] MEDS: TRILEPTAL GT SCH ×2 (09:27→21:51)
[2019-07-21] MEDS: DOCUSATE SODIUM LIQ 100 MG/10 ML UDC GT SCH (09:27)
[2019-07-21] MEDS: SENNOSIDES 8.6 MG TABLET GT SCH ×2 (09:27→21:51)
[2019-07-21] MEDS: FERROUS SULFATE UDC 300 MG/5 ML UDC GT SCH ×2 (09:27→17:32)
[2019-07-21] MEDS: BACI/NEOM/POLY B OINT PKT 1 UDPKT PACKET TP SCH ×2 (09:28→21:51)
[2019-07-21] MEDS: VITAMINS A AND D 56.7 GM TUBE TP SCH ×2 (09:28→21:52)
[2019-07-21] MEDS: HYDROGEL DRESSING 90 GM TUBE TP SCH ×2 (09:28→21:51)
[2019-07-21] MEDS: Z GUARD REMEDY 4 OZ OINT TP SCH ×4 (09:28→21:52)
--- NOTE | 2019-07-21 09:55 | NUR ---
Relayed Trileptal level 30, Keppra level 85.[address] Luis. Received order to decrease Keppra from 1500 mg to 1000 mg GT q 12 hours. Notified Beckie.
[2019-07-21] MEDS ORDERED: MUPIROCIN OINT 2% 22 GM TUBE TP SCH (13:00)
--- NOTE | 2019-07-21 13:39 | NUR ---
Relayed nares culture result to NAN Alvarez which shows that pt still has MRSA. NAN Neal ordered to apply Bactroban ointment to nares q 12 hours for 10 days. Pt still on contact isolation. Notified Beckie.
--- NOTE | 2019-07-21 13:59 | NUR ---
Leopoldo of [facility] called and said that Bactroban is not covered by insurance. Spoke with [facility] pharmacist Birdie, [facility] will provide.
--- NOTE | 2019-07-21 17:09 | NUR ---
RT NOTE RECEIVED PATIENT ON TRACH WITH MECHANICAL VENTILATOR. TRACH IS PATENT AND SECURED. SPARE TRACH AND BVM IS AT BEDSIDE. ALARMS ARE SET AND AUDIBLE. VENTILATOR IS PLUGGED TO RED OUTLET. PATIENT HAS EQUAL CHEST RISE WITH COARSE BILATERAL BREATH SOUNDS. SUCTION SMALL AMOUNT OF THIN WHITE SECRETIONS THROUGH OUT THE DAY. Q6 BREATHING TREATMENTS WERE GIVEN WITH NO ADVERSE REACTIONS. Addendum: 07/21/19 at 1710 by DAVE HICKMAN RT Amended: Links added.
[2019-07-21] MEDS: GLUCERNA 1.2 1,000 ML BOTTLE GT PRN (17:32)
--- NOTE | 2019-07-21 20:09 | NUR ---
RT NOTE PATIENT RECEIVED IN STABLE CONDITION. PATIENT TOLERATING CURRENT ORDERED VENT SETTINGS, NO SIGNS OF RESPIRATORY DISTRESS NOTED. ALARMS ARE SET AND AUDIBLE. TRACH IS PATENT AND SECURE. MECHANICAL VENT IS PLUGGED INTO RED OUTLET. EMERGENCY EQUIPMENT AT PATIENT BEDSIDE. WILL CONTINUE TO MONITOR PATIENT. Addendum: 07/21/19 at 2033 by FRANCO ALBARRAN RT Amended: Links added.
[2019-07-21 20:15] VITALS: BP 132/78
[2019-07-21] MEDS: MUPIROCIN OINT 2% 22 GM TUBE TP SCH (21:00)
[2019-07-21] MEDS: ASCORBIC ACID 500 MG TABLET GT SCH (21:51)
[2019-07-21] MEDS: INSULIN GLARGINE, 100 UNIT/ML CARTRIDGE SQ SCH (21:58)
[2019-07-22] MEDS: ALBUTEROL FS 2.5 MG/3 ML VIAL.NEB NEB SCH ×4 (01:19→19:40)
[2019-07-22] MEDS: OMEPRAZOLE 20 MG CAPSULE.DR GT SCH (05:46)
[2019-07-22] MEDS: METOCLOPRAMIDE HCL 10 MG TABLET GT SCH ×4 (05:46→23:37)
[2019-07-22] MEDS: GABAPENTIN 250 MG/5 ML SOLUTION GT SCH ×3 (05:46→21:37)
[2019-07-22] MEDS: BLOOD SUGAR DIAGNOSTIC 1 EACH STRIP IN SCH ×2 (05:46→17:28)
[2019-07-22] MEDS: INSULIN REGULAR, HUMAN 100 UNIT/ML 3 ML VIAL SQ PRN (05:47)
[2019-07-22] MEDS: HYDROGEN PEROXIDE 480 ML BOTTLE TP SCH ×2 (07:19→20:32)
[2019-07-22 07:50] VITALS: BP 123/76
[2019-07-22 08:06] LABS: PTH, INTACT 47 pg/mL (15-65)
[2019-07-22] MEDS: SENNOSIDES 8.6 MG TABLET GT SCH ×2 (08:29→21:37)
[2019-07-22] MEDS: SIMETHICONE SUSP 40 MG/0.6 ML BOTTLE GT SCH ×2 (08:29→21:36)
[2019-07-22] MEDS: HYDROGEL DRESSING 90 GM TUBE TP SCH ×2 (08:29→21:37)
[2019-07-22] MEDS: FERROUS SULFATE UDC 300 MG/5 ML UDC GT SCH ×2 (08:29→16:42)
[2019-07-22] MEDS: ACIDOPHILUS/BULGARICUS 1 EACH TAB.CHEW GT SCH ×2 (08:29→16:42)
[2019-07-22] MEDS: DOCUSATE SODIUM LIQ 100 MG/10 ML UDC GT SCH (08:29)
[2019-07-22] MEDS: CALCIUM CARBONATE 500 MG TAB.CHEW GT SCH ×2 (08:29→16:42)
[2019-07-22] MEDS: MULTIVIT W/MINERALS 1 TAB TABLET GT SCH (08:29)
[2019-07-22] MEDS: LEVETIRACETAM SOL (5 ML) 100 MG/ML UDC GT SCH ×2 (08:29→21:36)
[2019-07-22] MEDS: TRILEPTAL GT SCH ×2 (08:29→21:37)
[2019-07-22] MEDS: Z GUARD REMEDY 4 OZ OINT TP SCH ×4 (08:30→21:37)
[2019-07-22] MEDS: VITAMINS A AND D 56.7 GM TUBE TP SCH ×2 (08:30→21:37)
[2019-07-22] MEDS: MUPIROCIN OINT 2% 22 GM TUBE TP SCH ×2 (09:00→21:37)
[2019-07-22] MEDS: GLUCERNA 1.2 1,000 ML BOTTLE GT PRN (12:39)
[2019-07-22 16:07] LABS: *SPE A/G RATIO 0.4 (0.7-1.7); *SPE ALPHA-1-GLOBULIN 0.3 g/dL (0.0-0.4); *SPE ALPHA-2-GLOBULIN 1.1 g/dL (0.4-1.0); *SPE BETA GLOBULIN 1.9 g/dL (0.7-1.3); *SPE GLOBULIN, TOTAL 6.8 g/dL (2.2-3.9); *SPE M-SPIKE Not Observed g/dL (Not Observed); *SPEGAMMA GLOBULIN 3.5 g/dL (0.4-1.8)
[2019-07-22] MEDS: ASCORBIC ACID 500 MG TABLET GT SCH (21:37)
[2019-07-22] MEDS: INSULIN GLARGINE, 100 UNIT/ML CARTRIDGE SQ SCH (22:20)
[2019-07-23 00:51] VITALS: BP 122/72
[2019-07-23] MEDS: ALBUTEROL FS 2.5 MG/3 ML VIAL.NEB NEB SCH ×4 (02:22→19:36)
[2019-07-23] MEDS: BLOOD SUGAR DIAGNOSTIC 1 EACH STRIP IN SCH ×2 (05:43→17:28)
[2019-07-23] MEDS: METOCLOPRAMIDE HCL 10 MG TABLET GT SCH ×3 (05:43→17:28)
[2019-07-23] MEDS: OMEPRAZOLE 20 MG CAPSULE.DR GT SCH (05:43)
[2019-07-23] MEDS: GABAPENTIN 250 MG/5 ML SOLUTION GT SCH ×3 (05:43→21:36)
[2019-07-23] MEDS: INSULIN REGULAR, HUMAN 100 UNIT/ML 3 ML VIAL SQ PRN ×2 (05:44→17:29)
[2019-07-23] MEDS: GLUCERNA 1.2 1,000 ML BOTTLE GT PRN (06:55)
[2019-07-23 07:23] VITALS: BP 127/70
[2019-07-23] MEDS: SIMETHICONE SUSP 40 MG/0.6 ML BOTTLE GT SCH ×2 (08:25→21:36)
[2019-07-23] MEDS: DOCUSATE SODIUM LIQ 100 MG/10 ML UDC GT SCH (08:25)
[2019-07-23] MEDS: MULTIVIT W/MINERALS 1 TAB TABLET GT SCH (08:25)
[2019-07-23] MEDS: ACIDOPHILUS/BULGARICUS 1 EACH TAB.CHEW GT SCH ×2 (08:25→16:26)
[2019-07-23] MEDS: FERROUS SULFATE UDC 300 MG/5 ML UDC GT SCH ×2 (08:25→16:26)
[2019-07-23] MEDS: SENNOSIDES 8.6 MG TABLET GT SCH ×2 (08:25→21:36)
[2019-07-23] MEDS: LEVETIRACETAM SOL (5 ML) 100 MG/ML UDC GT SCH ×2 (08:25→21:36)
[2019-07-23] MEDS: TRILEPTAL GT SCH ×2 (08:25→21:36)
[2019-07-23] MEDS: CALCIUM CARBONATE 500 MG TAB.CHEW GT SCH ×2 (08:26→16:26)
[2019-07-23] MEDS: MUPIROCIN OINT 2% 22 GM TUBE TP SCH ×2 (09:00→21:36)
[2019-07-23] MEDS: HYDROGEL DRESSING 90 GM TUBE TP SCH ×2 (09:00→21:37)
[2019-07-23] MEDS: VITAMINS A AND D 56.7 GM TUBE TP SCH ×2 (09:00→21:37)
[2019-07-23] MEDS: Z GUARD REMEDY 4 OZ OINT TP SCH ×4 (09:00→21:37)
[2019-07-23] MEDS: HYDROGEN PEROXIDE 480 ML BOTTLE TP SCH ×2 (09:15→21:02)
--- NOTE | 2019-07-23 11:18 | NUR ---
Pt noted with small open skin on the left 5th toe. Received order to apply triple antibiotic ointment q shift for 14 days. Notified Beckie.
[2019-07-23 19:45] VITALS: BP 109/65
[2019-07-23] MEDS: ASCORBIC ACID 500 MG TABLET GT SCH (21:36)
[2019-07-23] MEDS: BACI/NEOM/POLY B OINT PKT 1 UDPKT PACKET TP SCH (21:37)
[2019-07-23] MEDS: INSULIN GLARGINE, 100 UNIT/ML CARTRIDGE SQ SCH (21:51)
[2019-07-24] VITALS (7 sets, daily range): BP systolic 117–125; BP diastolic 57–68
[2019-07-24] MEDS: METOCLOPRAMIDE HCL 10 MG TABLET GT SCH ×4 (00:42→17:35)
[2019-07-24] MEDS: GLUCERNA 1.2 1,000 ML BOTTLE GT PRN ×2 (00:43→18:02)
[2019-07-24] MEDS: ALBUTEROL FS 2.5 MG/3 ML VIAL.NEB NEB SCH ×4 (01:30→19:42)
[2019-07-24] MEDS: GABAPENTIN 250 MG/5 ML SOLUTION GT SCH ×3 (05:56→21:26)
[2019-07-24] MEDS: OMEPRAZOLE 20 MG CAPSULE.DR GT SCH (05:56)
[2019-07-24] MEDS: BLOOD SUGAR DIAGNOSTIC 1 EACH STRIP IN SCH ×2 (05:57→17:51)
[2019-07-24] MEDS: INSULIN REGULAR, HUMAN 100 UNIT/ML 3 ML VIAL SQ PRN ×2 (05:57→17:52)
[2019-07-24] MEDS: HYDROGEN PEROXIDE 480 ML BOTTLE TP SCH ×2 (07:36→21:10)
[2019-07-24] MEDS: HYDROGEL DRESSING 90 GM TUBE TP SCH ×2 (09:39→21:26)
[2019-07-24] MEDS: SENNOSIDES 8.6 MG TABLET GT SCH ×2 (09:39→21:26)
[2019-07-24] MEDS: CALCIUM CARBONATE 500 MG TAB.CHEW GT SCH ×2 (09:39→17:35)
[2019-07-24] MEDS: SIMETHICONE SUSP 40 MG/0.6 ML BOTTLE GT SCH ×2 (09:39→21:26)
[2019-07-24] MEDS: DOCUSATE SODIUM LIQ 100 MG/10 ML UDC GT SCH (09:39)
[2019-07-24] MEDS: FERROUS SULFATE UDC 300 MG/5 ML UDC GT SCH ×2 (09:39→17:35)
[2019-07-24] MEDS: LEVETIRACETAM SOL (5 ML) 100 MG/ML UDC GT SCH ×2 (09:39→21:26)
[2019-07-24] MEDS: TRILEPTAL GT SCH ×2 (09:39→21:26)
[2019-07-24] MEDS: MUPIROCIN OINT 2% 22 GM TUBE TP SCH ×2 (09:39→21:26)
[2019-07-24] MEDS: ACIDOPHILUS/BULGARICUS 1 EACH TAB.CHEW GT SCH ×2 (09:39→17:35)
[2019-07-24] MEDS: MULTIVIT W/MINERALS 1 TAB TABLET GT SCH (09:39)
[2019-07-24] MEDS: Z GUARD REMEDY 4 OZ OINT TP SCH ×4 (09:40→21:26)
[2019-07-24] MEDS: BACI/NEOM/POLY B OINT PKT 1 UDPKT PACKET TP SCH ×2 (09:40→21:26)
[2019-07-24] MEDS: VITAMINS A AND D 56.7 GM TUBE TP SCH ×2 (09:40→21:26)
--- NOTE | 2019-07-24 09:55 | NUR ---
Informed Dr Luis that pt's output from the nephrostomy tube still noted with blood. Asked him if he wanted to order a follow-up CBC since last Hgb was 7.5. Dr Luis ordered to repeat CBC and UA/UC.
[2019-07-24 12:06] LABS: BASOPHILS # (AUTO) 0.1 /CMM (0.0-0.2); BASOPHILS % (AUTO) 0.6 % (0.0-2.0); HEMATOCRIT 21 % (33-45); LYMPHOCYTES # (AUTO) 2.5 /CMM (0.8-4.8); LYMPHOCYTES % (AUTO) 17.5 % (20.0-44.0); MEAN CORPUSCULAR HGB CONC 34 g/dl (31.0-36.0); MEAN CORPUSCULAR VOLUME 105 fL (82-100); MONOCYTES # (AUTO) 1.3 /CMM (0.1-1.30); MONOCYTES % (AUTO) 8.7 % (2.0-12.0); NEUTROPHILS % (AUTO) 69.2 % (43.0-81.0); PLATELET COUNT (AUTO) 305 /CMM (150-450); WHITE BLOOD COUNT (AUTO) 14.5 K/uL (4.3-11.0)
[2019-07-24 12:39] LABS: RED BLOOD CELL COUNT(AUTO) 1.98 MIL/uL (4.0-5.2)
--- NOTE | 2019-07-24 12:44 | NUR ---
Left message for Dr Luis that Hgb 7.0 Hct 21 WBC 14.5. Pt afebrile, T 97.6 F.
[2019-07-24 13:06] LABS: APPEARANCE,URINE CLOUDY (CLEAR); BILIRUBIN,URINE NEGATIVE (NEGATIVE); BLOOD, URINE LARGE Ery/uL (NEGATIVE); COLOR,URINE YELLOW (YELLOW); KETONES,URINE NEGATIVE (NEGATIVE); LEUKOCYTE ESTERASE ,URINE LARGE (NEGATIVE); NITRITE, URINE NEGATIVE (NEGATIVE); PH,URINE 7.5 (5.0-8.0); PROTEIN,URINE >=300 mg/dl (NEGATIVE); UGLUCOSE NEGATIVE (NEGATIVE); UROBILINOGEN,URINE 0.2 EU/dL (0.2)
[2019-07-24 13:22] LABS: BACTERIA,URINE Few /HPF (None Seen); SQUAMOUS EPITHELIAL CELL,UR Few /HPF (None Seen)
--- NOTE | 2019-07-24 14:00 | NUR ---
Left another message for Dr Luis asking if he wanted to give any orders.
--- NOTE | 2019-07-24 14:47 | NUR ---
Dr Luis ordered to transfuse 1 unit of PRBC. Called pt's sister Beckie. She did not answer call, left message on her voicemail.
--- NOTE | 2019-07-24 15:00 | NUR ---
Peripheral IV G 20 inserted on pt's right foot with good blood return. Pt tolerated well.
--- NOTE | 2019-07-24 19:42 | NUR ---
RT NOTES PT RECEIVED TRACHED ON [facility] VENT ON CHARTED SETTINGS. NO SIGNS OF DISTRESS NOTED AT THIS TIME. AIRWAY PATENT AND SECURED. TRACTOR CRANE OPERATOR DONE. PT SUCTIONED. HHN TX GIVEN. NO ADVERSE REACTIONS NOTED. ALARMS SET AND AUDIBLE. AMBUBAG AND SPARE TRACH AT BEDSIDE. VENT CONNECTED TO RED OUTLET. WILL CONT TO MONITOR.
--- NOTE | 2019-07-24 19:42 | NUR ---
RT NOTES PT RECEIVED TRACHED ON [facility] VENT ON CHARTED SETTINGS. NO SIGNS OF RESP DISTRESS NOTED AT THIS TIME. AIRWAY PATENT AND SECURED. STRIPPER CUTTER MACHINE DONE. PT SUCTIONED. HHN TX GIVEN. NO ADVERSE REACTIONS NOTED. ALARMS SET AND AUDIBLE. AMBUBAG AND SPARE TRACH AT BEDSIDE. VENT CONNECTED TO RED OUTLET. WILL CONT TO MONITOR. Addendum: 07/24/19 at 2154 by EDDI GUTIÉRREZ RT Amended: Links added.
--- NOTE | 2019-07-24 20:30 | NUR ---
RN NOTES Seen and examined by Anna Vargas NP, with NNO.
[2019-07-24] MEDS: ASCORBIC ACID 500 MG TABLET GT SCH (21:26)
[2019-07-24] MEDS: INSULIN GLARGINE, 100 UNIT/ML CARTRIDGE SQ SCH (21:27)
[2019-07-25] MEDS: METOCLOPRAMIDE HCL 10 MG TABLET GT SCH ×4 (00:31→17:39)
[2019-07-25] MEDS: ALBUTEROL FS 2.5 MG/3 ML VIAL.NEB NEB SCH ×4 (01:37→19:18)
[2019-07-25] MEDS: OMEPRAZOLE 20 MG CAPSULE.DR GT SCH (05:34)
[2019-07-25] MEDS: BLOOD SUGAR DIAGNOSTIC 1 EACH STRIP IN SCH ×2 (05:34→17:39)
[2019-07-25] MEDS: GABAPENTIN 250 MG/5 ML SOLUTION GT SCH ×3 (05:34→21:23)
[2019-07-25 08:02] VITALS: BP 131/74
[2019-07-25] MEDS: HYDROGEN PEROXIDE 480 ML BOTTLE TP SCH ×2 (08:18→21:00)
[2019-07-25] MEDS: DOCUSATE SODIUM LIQ 100 MG/10 ML UDC GT SCH (09:32)
[2019-07-25] MEDS: FERROUS SULFATE UDC 300 MG/5 ML UDC GT SCH ×2 (09:32→17:39)
[2019-07-25] MEDS: SIMETHICONE SUSP 40 MG/0.6 ML BOTTLE GT SCH ×2 (09:33→21:22)
[2019-07-25] MEDS: SENNOSIDES 8.6 MG TABLET GT SCH ×2 (09:33→21:23)
[2019-07-25] MEDS: MULTIVIT W/MINERALS 1 TAB TABLET GT SCH (09:33)
[2019-07-25] MEDS: ACIDOPHILUS/BULGARICUS 1 EACH TAB.CHEW GT SCH ×2 (09:33→17:39)
[2019-07-25] MEDS: LEVETIRACETAM SOL (5 ML) 100 MG/ML UDC GT SCH ×2 (09:33→21:22)
[2019-07-25] MEDS: TRILEPTAL GT SCH ×2 (09:33→21:23)
[2019-07-25] MEDS: CALCIUM CARBONATE 500 MG TAB.CHEW GT SCH ×2 (09:34→17:39)
[2019-07-25] MEDS: Z GUARD REMEDY 4 OZ OINT TP SCH ×4 (09:35→21:24)
[2019-07-25] MEDS: HYDROGEL DRESSING 90 GM TUBE TP SCH ×2 (09:35→21:24)
[2019-07-25] MEDS: BACI/NEOM/POLY B OINT PKT 1 UDPKT PACKET TP SCH ×2 (09:35→21:24)
[2019-07-25] MEDS: MUPIROCIN OINT 2% 22 GM TUBE TP SCH ×2 (09:35→21:24)
[2019-07-25] MEDS: VITAMINS A AND D 56.7 GM TUBE TP SCH ×2 (09:36→21:24)
--- NOTE | 2019-07-25 10:20 | NUR ---
Seen and examined by Dr. Luis, checked Nephrostomy still noted with bloody output. He said to continue to monitor. No new order given.
--- NOTE | 2019-07-25 10:30 | NUR ---
Received order from Dr. Kumar to start Epogen 13036 units SQ q 7 days for Anemia r/t CKD. Left message to Beckie (sister) regarding new order. [facility] pharmacy will work on authorization from medical arvin. since today is holiday. SO provided first dose.
[2019-07-25] MEDS: GLUCERNA 1.2 1,000 ML BOTTLE GT PRN (12:43)
[2019-07-25] MEDS: EPOETIN ALFA (10,000 UNIT) 10,000 UNIT/ML VIAL SQ SCH (13:42)
--- NOTE | 2019-07-25 17:00 | NUR ---
Seen and examined by Dr. Felix, no new order given.
[2019-07-25 20:21] VITALS: BP 141/85
[2019-07-25] MEDS: ASCORBIC ACID 500 MG TABLET GT SCH (21:24)
[2019-07-25] MEDS: INSULIN GLARGINE, 100 UNIT/ML CARTRIDGE SQ SCH (21:25)
[2019-07-26] MEDS: METOCLOPRAMIDE HCL 10 MG TABLET GT SCH ×4 (00:07→17:12)
[2019-07-26] MEDS: ALBUTEROL FS 2.5 MG/3 ML VIAL.NEB NEB SCH ×4 (01:52→19:21)
[2019-07-26] MEDS: GABAPENTIN 250 MG/5 ML SOLUTION GT SCH ×3 (05:00→20:47)
[2019-07-26] MEDS: OMEPRAZOLE 20 MG CAPSULE.DR GT SCH (06:22)
[2019-07-26] MEDS: BLOOD SUGAR DIAGNOSTIC 1 EACH STRIP IN SCH ×2 (06:23→17:15)
[2019-07-26 07:56] VITALS: BP 122/64
[2019-07-26] MEDS: HYDROGEN PEROXIDE 480 ML BOTTLE TP SCH ×2 (08:19→21:57)
[2019-07-26] MEDS: SIMETHICONE SUSP 40 MG/0.6 ML BOTTLE GT SCH ×2 (08:56→20:45)
[2019-07-26] MEDS: FERROUS SULFATE UDC 300 MG/5 ML UDC GT SCH ×2 (08:56→17:12)
[2019-07-26] MEDS: SENNOSIDES 8.6 MG TABLET GT SCH ×2 (08:56→20:45)
[2019-07-26] MEDS: TRILEPTAL GT SCH ×2 (08:56→20:45)
[2019-07-26] MEDS: ACIDOPHILUS/BULGARICUS 1 EACH TAB.CHEW GT SCH ×2 (08:56→17:12)
[2019-07-26] MEDS: DOCUSATE SODIUM LIQ 100 MG/10 ML UDC GT SCH (08:56)
[2019-07-26] MEDS: LEVETIRACETAM SOL (5 ML) 100 MG/ML UDC GT SCH ×2 (08:56→20:45)
[2019-07-26] MEDS: CALCIUM CARBONATE 500 MG TAB.CHEW GT SCH ×2 (08:56→17:12)
[2019-07-26] MEDS: MULTIVIT W/MINERALS 1 TAB TABLET GT SCH (08:56)
[2019-07-26] MEDS: BACI/NEOM/POLY B OINT PKT 1 UDPKT PACKET TP SCH ×2 (09:00→20:46)
[2019-07-26] MEDS: Z GUARD REMEDY 4 OZ OINT TP SCH ×4 (09:00→20:46)
[2019-07-26] MEDS: HYDROGEL DRESSING 90 GM TUBE TP SCH ×2 (09:00→20:46)
[2019-07-26] MEDS: VITAMINS A AND D 56.7 GM TUBE TP SCH ×2 (09:00→20:46)
[2019-07-26] MEDS: MUPIROCIN OINT 2% 22 GM TUBE TP SCH ×2 (09:00→20:46)
--- NOTE | 2019-07-26 09:33 | NUR ---
Urine culture result showed ESBL and Proteus mirabilis. Relayed to MICROFILM MOUNTER Ángel Alvarez. She will review the result. Pt currently on contact isolation for ESBL urine.
[2019-07-26] MEDS: GLUCERNA 1.2 1,000 ML BOTTLE GT PRN (11:03)
--- NOTE | 2019-07-26 12:13 | NUR ---
Pt was given 1 unit of PRBC on 07/24/19. Asked Dr Luis if he wanted to order follow up H & H. He said no.
[2019-07-26] MEDS: INSULIN REGULAR, HUMAN 100 UNIT/ML 3 ML VIAL SQ PRN (17:15)
--- NOTE | 2019-07-26 17:34 | NUR ---
RT NOTE RECEIVED PATIENT ON TRACH WITH MECHANICAL VENTILATOR. TRACH IS PATENT AND SECURED. SPARE TRACH AND BVM IS AT BEDSIDE. ALARMS ARE SET AND AUDIBLE. VENTILATOR IS PLUGGED TO RED OUTLET. PATIENT HAS EQUAL CHEST RISE WITH COARSE BILATERAL BREATH SOUNDS. SUCTION MODERATE AMOUNT OF THIN WHITE SECRETIONS THROUGH OUT THE DAY. Q6 BREATHING TREATMENTS WERE GIVEN WITH NO ADVERSE REACTIONS. Addendum: 07/26/19 at 1734 by DAVE HICKMAN RT Amended: Links added.
[2019-07-26 20:02] VITALS: BP 133/77
[2019-07-26] MEDS: ASCORBIC ACID 500 MG TABLET GT SCH (20:46)
[2019-07-26] MEDS: INSULIN GLARGINE, 100 UNIT/ML CARTRIDGE SQ SCH (21:52)
[2019-07-27] MEDS: METOCLOPRAMIDE HCL 10 MG TABLET GT SCH ×5 (00:30→23:51)
[2019-07-27] MEDS: GLUCERNA 1.2 1,000 ML BOTTLE GT PRN ×2 (01:12→22:00)
[2019-07-27] MEDS: ALBUTEROL FS 2.5 MG/3 ML VIAL.NEB NEB SCH ×4 (01:57→19:21)
[2019-07-27] MEDS: OMEPRAZOLE 20 MG CAPSULE.DR GT SCH (05:14)
[2019-07-27] MEDS: BLOOD SUGAR DIAGNOSTIC 1 EACH STRIP IN SCH ×2 (05:14→18:46)
[2019-07-27] MEDS: GABAPENTIN 250 MG/5 ML SOLUTION GT SCH ×3 (05:14→21:34)
[2019-07-27 07:42] VITALS: BP 101/80
[2019-07-27] MEDS: FERROUS SULFATE UDC 300 MG/5 ML UDC GT SCH ×2 (09:00→17:00)
[2019-07-27] MEDS: MUPIROCIN OINT 2% 22 GM TUBE TP SCH ×2 (09:00→21:35)
[2019-07-27] MEDS: DOCUSATE SODIUM LIQ 100 MG/10 ML UDC GT SCH (09:00)
[2019-07-27] MEDS: SIMETHICONE SUSP 40 MG/0.6 ML BOTTLE GT SCH ×2 (09:00→21:34)
[2019-07-27] MEDS: MULTIVIT W/MINERALS 1 TAB TABLET GT SCH (09:00)
[2019-07-27] MEDS: TRILEPTAL GT SCH ×2 (09:00→21:34)
[2019-07-27] MEDS: SENNOSIDES 8.6 MG TABLET GT SCH ×2 (09:00→21:34)
[2019-07-27] MEDS: LEVETIRACETAM SOL (5 ML) 100 MG/ML UDC GT SCH ×2 (09:00→21:34)
[2019-07-27] MEDS: CALCIUM CARBONATE 500 MG TAB.CHEW GT SCH ×2 (09:00→17:00)
[2019-07-27] MEDS: BACI/NEOM/POLY B OINT PKT 1 UDPKT PACKET TP SCH ×2 (09:00→21:35)
[2019-07-27] MEDS: ACIDOPHILUS/BULGARICUS 1 EACH TAB.CHEW GT SCH ×2 (09:00→17:00)
[2019-07-27] MEDS: Z GUARD REMEDY 4 OZ OINT TP SCH ×4 (09:00→21:35)
[2019-07-27] MEDS: HYDROGEL DRESSING 90 GM TUBE TP SCH ×2 (09:00→21:35)
[2019-07-27] MEDS: VITAMINS A AND D 56.7 GM TUBE TP SCH ×2 (09:00→21:35)
[2019-07-27] MEDS: HYDROGEN PEROXIDE 480 ML BOTTLE TP SCH ×2 (09:19→20:29)
--- NOTE | 2019-07-27 18:40 | NUR ---
Made a follow-up message to NAN Loredo regarding urine culture result showing E. Coli ESBL and Proteus Mirabilis. Resident afebrile at 98.3. Awaiting for order.
[2019-07-27] MEDS: INSULIN REGULAR, HUMAN 100 UNIT/ML 3 ML VIAL SQ PRN (18:47)
[2019-07-27] MEDS ORDERED: DOSING PER PHARMACY-AMIKACI IV XX PRN (19:00)
[2019-07-27 19:56] VITALS: BP 123/71
--- NOTE | 2019-07-27 20:00 | NUR ---
Received an order from Charity Loredo 1gm q 24 hours x 5 days per [facility] protocol for UTI, [facility] pharmacy to dose. Midline insertion d/t poor venous access.Will carried out order.
[2019-07-27] MEDS: ASCORBIC ACID 500 MG TABLET GT SCH (21:34)
[2019-07-27] MEDS: CEFTAZIDIME 1 G in IV D5W 50 ML IV SCH (22:00)
--- NOTE | 2019-07-27 22:00 | NUR ---
Midline inserted to Left upper arm gauge#18,tolerated procedure.Started Fortaz 1 gm IV, and Amicakin 300mg IV as ordered. Medications covered by insurance per IV pharmacist will send. Will continue to monitor.
[2019-07-27] MEDS: INSULIN GLARGINE, 100 UNIT/ML CARTRIDGE SQ SCH (22:56)
[2019-07-27] MEDS ORDERED: AMIKACIN 250 MG/ML VIAL IV SCH (23:30)
[2019-07-28] MEDS: ALBUTEROL FS 2.5 MG/3 ML VIAL.NEB NEB SCH ×4 (01:44→20:04)
[2019-07-28] MEDS: GABAPENTIN 250 MG/5 ML SOLUTION GT SCH ×3 (05:32→21:19)
[2019-07-28] MEDS: OMEPRAZOLE 20 MG CAPSULE.DR GT SCH (05:32)
[2019-07-28] MEDS: METOCLOPRAMIDE HCL 10 MG TABLET GT SCH ×4 (05:32→23:57)
[2019-07-28] MEDS: BLOOD SUGAR DIAGNOSTIC 1 EACH STRIP IN SCH ×2 (05:32→18:10)
[2019-07-28] MEDS: INSULIN REGULAR, HUMAN 100 UNIT/ML 3 ML VIAL SQ PRN (05:33)
[2019-07-28 07:43] VITALS: BP 127/76
[2019-07-28] MEDS: HYDROGEN PEROXIDE 480 ML BOTTLE TP SCH ×2 (08:11→20:05)
[2019-07-28] MEDS ORDERED: AMIKACIN 250 MG/ML VIAL IV SCH (08:51)
[2019-07-28] MEDS: Z GUARD REMEDY 4 OZ OINT TP SCH ×4 (09:21→21:20)
[2019-07-28] MEDS: HYDROGEL DRESSING 90 GM TUBE TP SCH ×2 (09:21→21:19)
[2019-07-28] MEDS: TRILEPTAL GT SCH ×2 (09:21→21:19)
[2019-07-28] MEDS: DOCUSATE SODIUM LIQ 100 MG/10 ML UDC GT SCH (09:21)
[2019-07-28] MEDS: SIMETHICONE SUSP 40 MG/0.6 ML BOTTLE GT SCH ×2 (09:21→21:19)
[2019-07-28] MEDS: ACIDOPHILUS/BULGARICUS 1 EACH TAB.CHEW GT SCH ×2 (09:21→17:00)
[2019-07-28] MEDS: FERROUS SULFATE UDC 300 MG/5 ML UDC GT SCH ×2 (09:21→17:00)
[2019-07-28] MEDS: CALCIUM CARBONATE 500 MG TAB.CHEW GT SCH ×2 (09:21→17:00)
[2019-07-28] MEDS: MUPIROCIN OINT 2% 22 GM TUBE TP SCH ×2 (09:21→21:19)
[2019-07-28] MEDS: VITAMINS A AND D 56.7 GM TUBE TP SCH ×2 (09:21→21:20)
[2019-07-28] MEDS: SENNOSIDES 8.6 MG TABLET GT SCH ×2 (09:21→21:19)
[2019-07-28] MEDS: LEVETIRACETAM SOL (5 ML) 100 MG/ML UDC GT SCH ×2 (09:21→21:19)
[2019-07-28] MEDS: MULTIVIT W/MINERALS 1 TAB TABLET GT SCH (09:21)
[2019-07-28] MEDS: BACI/NEOM/POLY B OINT PKT 1 UDPKT PACKET TP SCH ×2 (09:21→21:19)
--- NOTE | 2019-07-28 18:12 | NUR ---
Notified pt's sister Beckie regarding antibiotic therapy.
[2019-07-28] MEDS: GLUCERNA 1.2 1,000 ML BOTTLE GT PRN (18:52)
[2019-07-28 19:53] VITALS: BP 120/74
[2019-07-28] MEDS: ASCORBIC ACID 500 MG TABLET GT SCH (21:19)
[2019-07-28] MEDS: INSULIN GLARGINE, 100 UNIT/ML CARTRIDGE SQ SCH (21:20)
[2019-07-28] MEDS: CEFTAZIDIME 1 G in IV D5W 50 ML IV SCH (22:00)
[2019-07-28] MEDS: AMIKACIN 300 MG in IV D5W 100 ML IV SCH (23:06)
[2019-07-29] MEDS: ALBUTEROL FS 2.5 MG/3 ML VIAL.NEB NEB SCH ×4 (01:36→19:27)
--- NOTE | 2019-07-29 05:23 | NUR ---
PATIENT RECEIVED ON VENT SUPPORT WITH SETTINGS OF AC 16, 550 Vt, 30%, +5. SUCTIONED WITH LAVAGE FOR MINIMAL, THIN, WHITE SECRETIONS. GIVEN IN-LINE TREATMENTS WITH NO ADVERSE REACTIONS. AMBU BAG AT BEDSIDE. VENT AND PULSE ALARM AUDIBLE AND VISIBLE. TRACH CARE DONE. Addendum: 07/29/19 at 0524 by SARA MOLINA RT Amended: Links added.
[2019-07-29] MEDS: OMEPRAZOLE 20 MG CAPSULE.DR GT SCH (05:35)
[2019-07-29] MEDS: METOCLOPRAMIDE HCL 10 MG TABLET GT SCH ×4 (05:35→23:43)
[2019-07-29] MEDS: GABAPENTIN 250 MG/5 ML SOLUTION GT SCH ×3 (05:35→20:30)
[2019-07-29] MEDS: BLOOD SUGAR DIAGNOSTIC 1 EACH STRIP IN SCH ×2 (05:51→18:04)
[2019-07-29] MEDS: INSULIN REGULAR, HUMAN 100 UNIT/ML 3 ML VIAL SQ PRN ×2 (05:53→18:22)
[2019-07-29] MEDS ORDERED: AMIKACIN 300 MG in IV D5W 100 ML IV SCH (06:00)
[2019-07-29 08:01] VITALS: BP 149/73
[2019-07-29] MEDS: MUPIROCIN OINT 2% 22 GM TUBE TP SCH ×2 (09:00→20:31)
[2019-07-29] MEDS: VITAMINS A AND D 56.7 GM TUBE TP SCH ×2 (09:00→20:31)
[2019-07-29] MEDS: MULTIVIT W/MINERALS 1 TAB TABLET GT SCH (09:00)
[2019-07-29] MEDS: TRILEPTAL GT SCH ×2 (09:00→20:31)
[2019-07-29] MEDS: CALCIUM CARBONATE 500 MG TAB.CHEW GT SCH ×2 (09:00→17:00)
[2019-07-29] MEDS: LEVETIRACETAM SOL (5 ML) 100 MG/ML UDC GT SCH ×2 (09:00→20:30)
[2019-07-29] MEDS: ACIDOPHILUS/BULGARICUS 1 EACH TAB.CHEW GT SCH ×2 (09:00→17:00)
[2019-07-29] MEDS: FERROUS SULFATE - FOR SA ONLY 330 MG/7.5 ML UDC GT SCH ×2 (09:00→17:00)
[2019-07-29] MEDS: DOCUSATE SODIUM LIQ 100 MG/10 ML UDC GT SCH (09:00)
[2019-07-29] MEDS: SIMETHICONE SUSP 40 MG/0.6 ML BOTTLE GT SCH ×2 (09:00→20:30)
[2019-07-29] MEDS: BACI/NEOM/POLY B OINT PKT 1 UDPKT PACKET TP SCH ×2 (09:00→20:31)
[2019-07-29] MEDS: Z GUARD REMEDY 4 OZ OINT TP SCH ×4 (09:00→20:31)
[2019-07-29] MEDS: SENNOSIDES 8.6 MG TABLET GT SCH ×2 (09:00→20:31)
[2019-07-29] MEDS: HYDROGEN PEROXIDE 480 ML BOTTLE TP SCH ×2 (09:37→20:37)
[2019-07-29] MEDS: GLUCERNA 1.2 1,000 ML BOTTLE GT PRN (13:32)
--- NOTE | 2019-07-29 19:50 | NUR ---
RT NOTE PT RECEIVED TRACHED ON [facility] VENT ON CHARTED SETTINGS. NO SIGNS OF RESP DISTRESS NOTED AT THIS TIME. AIRWAY PATENT AND SECURED. SURFACE SUPERVISOR DONE. PT SUCTIONED. HHN TX GIVEN. NO ADVERSE REACTIONS NOTED. ALARMS SET AND AUDIBLE. AMBUBAG AND SPARE TRACH AT BEDSIDE. VENT CONNECTED TO RED OUTLET. WILL CONT TO MONITOR Addendum: 07/29/19 at 1950 by ALIA TEIXEIRA RT Amended: Links added.
[2019-07-29 20:13] VITALS: BP 133/77
[2019-07-29] MEDS: ASCORBIC ACID 500 MG TABLET GT SCH (20:31)
[2019-07-29] MEDS: INSULIN GLARGINE, 100 UNIT/ML CARTRIDGE SQ SCH (21:10)
[2019-07-29] MEDS: CEFTAZIDIME 1 G in IV D5W 50 ML IV SCH (22:00)
[2019-07-29 22:56] LABS: CALCIUM, SERUM 11.4 mg/dL (8.5-10.1); CREATININE 3.6 mg/dL (0.6-1.3)
[2019-07-29] MEDS: AMIKACIN 300 MG in IV D5W 100 ML IV SCH (23:00)
[2019-07-30] MEDS: ALBUTEROL FS 2.5 MG/3 ML VIAL.NEB NEB SCH ×4 (00:41→19:30)
[2019-07-30] MEDS: METOCLOPRAMIDE HCL 10 MG TABLET GT SCH ×4 (05:20→23:26)
[2019-07-30] MEDS: BLOOD SUGAR DIAGNOSTIC 1 EACH STRIP IN SCH ×2 (05:20→17:17)
[2019-07-30] MEDS: OMEPRAZOLE 20 MG CAPSULE.DR GT SCH (05:20)
[2019-07-30] MEDS: GABAPENTIN 250 MG/5 ML SOLUTION GT SCH ×3 (05:20→20:53)
[2019-07-30] MEDS: INSULIN REGULAR, HUMAN 100 UNIT/ML 3 ML VIAL SQ PRN ×2 (05:20→17:39)
[2019-07-30] MEDS: GLUCERNA 1.2 1,000 ML BOTTLE GT PRN ×2 (05:21→21:01)
[2019-07-30 08:18] VITALS: BP 109/64
--- NOTE | 2019-07-30 08:30 | NUR ---
Faxed amikacin trough level (9.7) and BMP result with of BUN 62, Creat 3.6 to [facility] pharmacy. Spoke with Eneida, he said IV pharmacist not in yet but will relay the message. Awaiting for IV pharmacist to call for new dosing.
[2019-07-30] MEDS: SENNOSIDES 8.6 MG TABLET GT SCH ×2 (09:00→20:53)
[2019-07-30] MEDS: SIMETHICONE SUSP 40 MG/0.6 ML BOTTLE GT SCH ×2 (09:00→20:53)
[2019-07-30] MEDS: Z GUARD REMEDY 4 OZ OINT TP SCH ×4 (09:00→20:54)
[2019-07-30] MEDS: HYDROGEN PEROXIDE 480 ML BOTTLE TP SCH ×2 (09:00→21:00)
[2019-07-30] MEDS: TRILEPTAL GT SCH ×2 (09:00→20:53)
[2019-07-30] MEDS: MULTIVIT W/MINERALS 1 TAB TABLET GT SCH (09:00)
[2019-07-30] MEDS: VITAMINS A AND D 56.7 GM TUBE TP SCH ×2 (09:00→20:54)
[2019-07-30] MEDS: CALCIUM CARBONATE 500 MG TAB.CHEW GT SCH ×2 (09:00→17:17)
[2019-07-30] MEDS: MUPIROCIN OINT 2% 22 GM TUBE TP SCH ×2 (09:00→20:53)
[2019-07-30] MEDS: BACI/NEOM/POLY B OINT PKT 1 UDPKT PACKET TP SCH ×2 (09:00→20:54)
[2019-07-30] MEDS: ACIDOPHILUS/BULGARICUS 1 EACH TAB.CHEW GT SCH ×2 (09:57→17:15)
[2019-07-30] MEDS: DOCUSATE SODIUM LIQ 100 MG/10 ML UDC GT SCH (09:57)
[2019-07-30] MEDS: LEVETIRACETAM SOL (5 ML) 100 MG/ML UDC GT SCH ×2 (09:57→20:53)
[2019-07-30] MEDS: FERROUS SULFATE - FOR SA ONLY 330 MG/7.5 ML UDC GT SCH ×2 (09:57→17:15)
--- NOTE | 2019-07-30 10:10 | NUR ---
Left a message to Dr. Luis regarding BMP result, BUN 62 and Creat 3.6.
--- NOTE | 2019-07-30 14:40 | NUR ---
Place a call to Dr. Kumar's office to relay BMP result with BUN 62 and Creat 3.6. According to Tabatha she will relay the message.
--- NOTE | 2019-07-30 15:20 | NUR ---
Left a follow-up message to Dr. Kumar to review BMP result with sCr 3.6, BUN 62. Resident with adequate urine output from Bourgeois catheter and draining urine from nephrostomy tube but remain with hematuria.
--- NOTE | 2019-07-30 15:20 | NUR ---
Received a telephone order from Dariana Gipson IV pharmacist with order to hold Amikacin dose tonight and to give it Q 36 hours instead due to elevated Amikacin trough of 9.7. Orders noted and carried out.
--- NOTE | 2019-07-30 16:30 | NUR ---
Clarified IV ATB (Amikacin and Fortaz) duration with LICENSED APPRAISER Lj if she wants to extend therapy beyond 5 days. New order given to complete therapy for a total of 7 days. Order faxed to [facility] pharmacy.
--- NOTE | 2019-07-30 16:47 | NUR ---
Spoke with Rosanna from [facility] pharmacy, IV department, according to Brandan, [facility] IV pharmacist, there is no need to obtain Amikacin level even the duration of therapy has been extended for another 2 days. Endorsed.
--- NOTE | 2019-07-30 18:50 | NUR ---
Followed-up with Dr. Kumar if he has orders regarding patient's elevated BUN 62 and sCr 3.6, New orders for AM labs and urine test for today. Orders carried out. Endorsed to incoming shift to collect urine specimen. Spoke with Beckie and informed of BMP result and the direction the concrete bucket loader is taking at this time. Appreciated the call.
[2019-07-30 20:41] LABS: BILIRUBIN,URINE NEGATIVE (NEGATIVE); BLOOD, URINE MODERATE Ery/uL (NEGATIVE); KETONES,URINE NEGATIVE (NEGATIVE); LEUKOCYTE ESTERASE ,URINE LARGE (NEGATIVE); NITRITE, URINE NEGATIVE (NEGATIVE); PH,URINE 7.5 (5.0-8.0); PROTEIN,URINE >=300 mg/dl (NEGATIVE); UGLUCOSE NEGATIVE (NEGATIVE); UROBILINOGEN,URINE 0.2 EU/dL (0.2)
[2019-07-30 20:43] LABS: COLOR,URINE STRAW (YELLOW)
[2019-07-30 20:49] LABS: URINE TOTAL PROTEIN 351.2 mg/dL (0-11.9)
[2019-07-30] MEDS: ASCORBIC ACID 500 MG TABLET GT SCH (20:53)
[2019-07-30] MEDS: INSULIN GLARGINE, 100 UNIT/ML CARTRIDGE SQ SCH (21:01)
[2019-07-30 21:05] LABS: APPEARANCE,URINE TURBID (CLEAR); BACTERIA,URINE Moderate /HPF (None Seen); WBC,URINE 81-100 /HPF (0-3)
[2019-07-30 21:06] LABS: SQUAMOUS EPITHELIAL CELL,UR Many /HPF (None Seen)
[2019-07-30 22:03] LABS: EOSINOPHIL,URINE None Seen
[2019-07-31] MEDS: ALBUTEROL FS 2.5 MG/3 ML VIAL.NEB NEB SCH ×4 (01:30→19:54)
[2019-07-31 02:52] VITALS: BP 132/70
[2019-07-31] MEDS: GABAPENTIN 250 MG/5 ML SOLUTION GT SCH ×3 (05:10→21:25)
[2019-07-31] MEDS: OMEPRAZOLE 20 MG CAPSULE.DR GT SCH (05:10)
[2019-07-31] MEDS: METOCLOPRAMIDE HCL 10 MG TABLET GT SCH ×4 (05:10→23:45)
[2019-07-31] MEDS: BLOOD SUGAR DIAGNOSTIC 1 EACH STRIP IN SCH ×2 (05:19→17:31)
[2019-07-31] MEDS: INSULIN REGULAR, HUMAN 100 UNIT/ML 3 ML VIAL SQ PRN ×2 (05:19→18:03)
--- NOTE | 2019-07-31 06:53 | NUR ---
VANDANA Montaño regarding the urinalysis result. will wait for orders.
[2019-07-31 07:19] VITALS: BP 135/69
[2019-07-31] MEDS: HYDROGEN PEROXIDE 480 ML BOTTLE TP SCH ×2 (08:10→19:54)
[2019-07-31 08:25] LABS: BASOPHILS # (AUTO) 0.1 /CMM (0.0-0.2); BASOPHILS % (AUTO) 0.6 % (0.0-2.0); EOSINOPHILS % (AUTO) 5.7 % (0.0-6.0); HEMATOCRIT 23 % (33-45); LYMPHOCYTES % (AUTO) 24.8 % (20.0-44.0); MEAN CORPUSCULAR HGB CONC 35 g/dl (31.0-36.0); MEAN CORPUSCULAR VOLUME 100 fL (82-100); MONOCYTES # (AUTO) 1.1 /CMM (0.1-1.30); MONOCYTES % (AUTO) 9.3 % (2.0-12.0); NEUTROPHILS # (AUTO) 7.2 /CMM (1.8-8.9); NEUTROPHILS % (AUTO) 59.6 % (43.0-81.0); PLATELET COUNT (AUTO) 369 /CMM (150-450); RED BLOOD CELL COUNT(AUTO) 2.35 MIL/uL (4.0-5.2); WHITE BLOOD COUNT (AUTO) 12.1 K/uL (4.3-11.0)
[2019-07-31 08:48] LABS: ALBUMIN 2.5 g/dL (3.4-5.0); BILIRUBIN,TOTAL 0.2 mg/dL (0.2-1.0); CALCIUM, SERUM 10.5 mg/dL (8.5-10.1); CREATININE 3.2 mg/dL (0.6-1.3); MAGNESIUM 2.4 mg/dL (1.8-2.4); PHOSPHORUS 4.5 mg/dL (2.5-4.9); POTASSIUM 3.6 mmol/L (3.5-5.1); TOTAL PROTEIN, SERUM 9.6 g/dL (6.4-8.2)
[2019-07-31] MEDS: CALCIUM CARBONATE 500 MG TAB.CHEW GT SCH ×2 (09:21→17:30)
[2019-07-31] MEDS: TRILEPTAL GT SCH ×2 (09:21→21:25)
[2019-07-31] MEDS: DOCUSATE SODIUM LIQ 100 MG/10 ML UDC GT SCH (09:21)
[2019-07-31] MEDS: SENNOSIDES 8.6 MG TABLET GT SCH ×2 (09:21→21:25)
[2019-07-31] MEDS: SIMETHICONE SUSP 40 MG/0.6 ML BOTTLE GT SCH ×2 (09:21→21:25)
[2019-07-31] MEDS: FERROUS SULFATE - FOR SA ONLY 330 MG/7.5 ML UDC GT SCH ×2 (09:21→17:30)
[2019-07-31] MEDS: ACIDOPHILUS/BULGARICUS 1 EACH TAB.CHEW GT SCH ×2 (09:21→17:30)
[2019-07-31] MEDS: MUPIROCIN OINT 2% 22 GM TUBE TP SCH (09:21)
[2019-07-31] MEDS: LEVETIRACETAM SOL (5 ML) 100 MG/ML UDC GT SCH ×2 (09:21→21:25)
[2019-07-31] MEDS: MULTIVIT W/MINERALS 1 TAB TABLET GT SCH (09:21)
[2019-07-31] MEDS: VITAMINS A AND D 56.7 GM TUBE TP SCH ×2 (09:25→21:26)
[2019-07-31] MEDS: BACI/NEOM/POLY B OINT PKT 1 UDPKT PACKET TP SCH ×2 (09:25→21:26)
[2019-07-31] MEDS: Z GUARD REMEDY 4 OZ OINT TP SCH ×2 (09:25→21:26)
--- NOTE | 2019-07-31 09:30 | NUR ---
Dr. Kumar seen and examined resident, reviewed lab. results with new orders, carried out. He said he will talk to ID regarding the Amikacin IV order because it causes damage to her kidneys. Informed Beckie (sister) about new orders, appreciated the call. Afebrile, no s/s of pain/ discomfort. Bourgeois catheter intact and patent draining yellow colored urine with noted sediments. Nephrostomy tube intact and patent still draining bloody output. Will continue to monitor.
[2019-07-31] MEDS: AMIKACIN 300 MG in IV D5W 100 ML IV SCH (11:10)
--- NOTE | 2019-07-31 13:30 | NUR ---
Seen and examined by Dr. Luis, reviewed lab. results, no new order given.
--- NOTE | 2019-07-31 17:06 | NUR ---
RT NOTE RECEIVED PATIENT ON TRACH WITH MECHANICAL VENTILATOR. TRACH IS PATENT AND SECURED. SPARE TRACH AND BVM IS AT BEDSIDE. ALARMS ARE SET AND AUDIBLE. VENTILATOR IS PLUGGED TO RED OUTLET. PATIENT HAS EQUAL CHEST RISE WITH COARSE BILATERAL BREATH SOUNDS. SUCTION SMALL AMOUNT OF THIN WHITE SECRETIONS THROUGH OUT THE DAY. Q6 BREATHING TREATMENTS WERE GIVEN WITH NO ADVERSE REACTIONS. PATIENT IS IN SYNC AND COMFORTABLE ON THE VENTILATOR. Addendum: 07/31/19 at 1707 by DAVE HICKMAN RT Amended: Links added.
[2019-07-31] MEDS: GLUCERNA 1.2 1,000 ML BOTTLE GT PRN (17:31)
[2019-07-31 19:25] LABS: PH,URINE 8.5 (5.0-8.0)
[2019-07-31 19:26] LABS: BILIRUBIN,URINE NEGATIVE (NEGATIVE); BLOOD, URINE 3+ Ery/uL (NEGATIVE); KETONES,URINE NEGATIVE (NEGATIVE); UGLUCOSE NEGATIVE (NEGATIVE)
[2019-07-31 19:27] LABS: COLOR,URINE AMBER (YELLOW); LEUKOCYTE ESTERASE ,URINE 3+ (NEGATIVE); PROTEIN,URINE 3+ mg/dl (NEGATIVE); UROBILINOGEN,URINE 0.2 EU/dL (0.2)
[2019-07-31 19:28] LABS: APPEARANCE,URINE CLEAR (CLEAR); NITRITE, URINE NEGATIVE (NEGATIVE)
[2019-07-31 19:43] LABS: CREATININE, URINE 21.8 MG/DL (30.0-125.0); URINE TOTAL PROTEIN 198.6 mg/dL (0-11.9)
[2019-07-31 19:44] LABS: RBC,URINE 21-50 /HPF (0-2); WBC,URINE 21-50 /HPF (0-3)
[2019-07-31 19:45] LABS: BACTERIA,URINE 2+ /HPF (None Seen); SQUAMOUS EPITHELIAL CELL,UR 0-2 /HPF (None Seen)
[2019-07-31 20:37] VITALS: BP 138/70
[2019-07-31 20:51] LABS: EOSINOPHIL,URINE Few
--- NOTE | 2019-07-31 20:53 | NUR ---
RT NOTE PT RECEIVED TRACHED ON MECHANICAL VENTILATION. AMBU BAG/BACK UP TRACH @ BEDSIDE. TX GIVEN, NO ADVERSE REACTIONS NOTED. SX DONE, TRACH SECURED AND PATENT. ALARMS ON AND AUDIBLE. VENT PLUGGED TO RED OUTLET. NO DISTRESS NOTED AT THIS TIME. WILL CONTINUE TO MONITOR. Addendum: 07/31/19 at 2053 by BRIEN NAEL RT Amended: Links added.
[2019-07-31] MEDS: ASCORBIC ACID 500 MG TABLET GT SCH (21:25)
[2019-07-31] MEDS: INSULIN GLARGINE, 100 UNIT/ML CARTRIDGE SQ SCH (21:26)
[2019-07-31] MEDS: CEFTAZIDIME 1 G in IV D5W 50 ML IV SCH (22:00)
[2019-08-01] MEDS: ALBUTEROL FS 2.5 MG/3 ML VIAL.NEB NEB SCH ×4 (02:27→20:29)
[2019-08-01] MEDS: METOCLOPRAMIDE HCL 10 MG TABLET GT SCH ×4 (05:36→23:58)
[2019-08-01] MEDS: OMEPRAZOLE 20 MG CAPSULE.DR GT SCH (05:36)
[2019-08-01] MEDS: GABAPENTIN 250 MG/5 ML SOLUTION GT SCH ×3 (05:36→21:57)
[2019-08-01] MEDS: BLOOD SUGAR DIAGNOSTIC 1 EACH STRIP IN SCH ×2 (05:37→18:41)
[2019-08-01 07:51] VITALS: BP 155/60
[2019-08-01 07:55] LABS: BASOPHILS # (AUTO) 0.1 /CMM (0.0-0.2); BASOPHILS % (AUTO) 0.8 % (0.0-2.0); EOSINOPHILS % (AUTO) 5.7 % (0.0-6.0); HEMATOCRIT 25 % (33-45); HEMOGLOBIN 8.6 g/dL (11.5-14.8); LYMPHOCYTES # (AUTO) 2.7 /CMM (0.8-4.8); LYMPHOCYTES % (AUTO) 25.8 % (20.0-44.0); MEAN CORPUSCULAR HGB CONC 35 g/dl (31.0-36.0); MEAN CORPUSCULAR VOLUME 100 fL (82-100); MONOCYTES # (AUTO) 1.1 /CMM (0.1-1.30); MONOCYTES % (AUTO) 10.1 % (2.0-12.0); NEUTROPHILS # (AUTO) 6.1 /CMM (1.8-8.9); NEUTROPHILS % (AUTO) 57.6 % (43.0-81.0); PLATELET COUNT (AUTO) 367 /CMM (150-450); WHITE BLOOD COUNT (AUTO) 10.6 K/uL (4.3-11.0)
[2019-08-01] MEDS: HYDROGEN PEROXIDE 480 ML BOTTLE TP SCH ×2 (08:02→21:15)
[2019-08-01 08:13] LABS: ALBUMIN 2.6 g/dL (3.4-5.0); BILIRUBIN,TOTAL 0.2 mg/dL (0.2-1.0); CALCIUM, SERUM 10.6 mg/dL (8.5-10.1); CREATININE 3.1 mg/dL (0.6-1.3); MAGNESIUM 2.3 mg/dL (1.8-2.4); POTASSIUM 3.2 mmol/L (3.5-5.1); TOTAL PROTEIN, SERUM 9.7 g/dL (6.4-8.2)
[2019-08-01] MEDS: LEVETIRACETAM SOL (5 ML) 100 MG/ML UDC GT SCH ×2 (09:00→21:57)
[2019-08-01] MEDS: ACIDOPHILUS/BULGARICUS 1 EACH TAB.CHEW GT SCH ×2 (09:00→17:00)
[2019-08-01] MEDS: BACI/NEOM/POLY B OINT PKT 1 UDPKT PACKET TP SCH ×2 (09:00→21:57)
[2019-08-01] MEDS: MULTIVIT W/MINERALS 1 TAB TABLET GT SCH (09:00)
[2019-08-01] MEDS: CALCIUM CARBONATE 500 MG TAB.CHEW GT SCH (09:00)
[2019-08-01] MEDS: SIMETHICONE SUSP 40 MG/0.6 ML BOTTLE GT SCH ×2 (09:00→21:57)
[2019-08-01] MEDS: Z GUARD REMEDY 4 OZ OINT TP SCH ×2 (09:00→21:57)
[2019-08-01] MEDS: SENNOSIDES 8.6 MG TABLET GT SCH ×2 (09:00→21:57)
[2019-08-01] MEDS: TRILEPTAL GT SCH ×2 (09:00→21:57)
[2019-08-01] MEDS: FERROUS SULFATE - FOR SA ONLY 330 MG/7.5 ML UDC GT SCH ×2 (09:00→17:00)
[2019-08-01] MEDS: DOCUSATE SODIUM LIQ 100 MG/10 ML UDC GT SCH (09:00)
--- NOTE | 2019-08-01 09:50 | NUR ---
Dr Kumar ordered to give Potassium Chloride 20 mEq via GT x 1 for K 3.2. Notified Beckie.
[2019-08-01] MEDS: EPOETIN ALFA (10,000 UNIT) 10,000 UNIT/ML VIAL SQ SCH (11:00)
[2019-08-01] MEDS ORDERED: POTASSIUM CHLORIDE 20 MEQ POWDER PACKET PO ONE (11:30)
--- NOTE | 2019-08-01 13:00 | NUR ---
Seen by NAN Vargas. Relayed lab results to her. No new order.
[2019-08-01] MEDS: GLUCERNA 1.2 1,000 ML BOTTLE GT PRN (13:19)
[2019-08-01 20:42] VITALS: BP 135/69
[2019-08-01] MEDS: VITS A AND D/WHITE PET/LANOLIN 5 GM PACKET TP SCH (21:57)
[2019-08-01] MEDS: ASCORBIC ACID 500 MG TABLET GT SCH (21:57)
[2019-08-01] MEDS: INSULIN GLARGINE, 100 UNIT/ML CARTRIDGE SQ SCH (21:58)
[2019-08-01] MEDS: CEFTAZIDIME 1 G in IV D5W 50 ML IV SCH (22:00)
[2019-08-01] MEDS: AMIKACIN 300 MG in IV D5W 100 ML IV SCH (23:00)
[2019-08-02] MEDS: ALBUTEROL FS 2.5 MG/3 ML VIAL.NEB NEB SCH ×4 (02:22→19:49)
[2019-08-02] MEDS: GABAPENTIN 250 MG/5 ML SOLUTION GT SCH ×3 (05:00→21:16)
[2019-08-02] MEDS: OMEPRAZOLE 20 MG CAPSULE.DR GT SCH (06:01)
[2019-08-02] MEDS: BLOOD SUGAR DIAGNOSTIC 1 EACH STRIP IN SCH ×2 (06:02→17:29)
[2019-08-02] MEDS: METOCLOPRAMIDE HCL 10 MG TABLET GT SCH ×4 (06:02→23:41)
--- NOTE | 2019-08-02 06:02 | NUR ---
RT NOTE Pt rec'd trached on [facility] vent on AC mode. Pt shows no signs of resp distress or sob. trach is patent and secured. Pt sx'd for small amt of thick pale yellow secretions. Alarms are set and audible. Vent plugged into red outlet. ambu bag and emergency spare trach bedside. Will continue to monitor closely. Addendum: 08/02/19 at 0602 by LADAN WICK RT Amended: Links added.
[2019-08-02 07:06] LABS: BASOPHILS # (AUTO) 0.1 /CMM (0.0-0.2)
[2019-08-02 07:32] LABS: CALCIUM, SERUM 11.2 mg/dL (8.5-10.1); CREATININE 2.7 mg/dL (0.6-1.3); MAGNESIUM 2.7 mg/dL (1.8-2.4); PHOSPHORUS 4.7 mg/dL (2.5-4.9); POTASSIUM 4.2 mmol/L (3.5-5.1)
[2019-08-02 07:53] LABS: BASOPHILS % (AUTO) 0.3 % (0.0-2.0); EOSINOPHILS % (AUTO) 6.9 % (0.0-6.0); HEMATOCRIT 27 % (33-45); HEMOGLOBIN 9.8 g/dL (11.5-14.8); LYMPHOCYTES # (AUTO) 4.3 /CMM (0.8-4.8); LYMPHOCYTES % (AUTO) 25.5 % (20.0-44.0); MEAN CORPUSCULAR HGB CONC 36 g/dl (31.0-36.0); MEAN CORPUSCULAR VOLUME 99 fL (82-100); MONOCYTES # (AUTO) 1.4 /CMM (0.1-1.30); MONOCYTES % (AUTO) 8.4 % (2.0-12.0); NEUTROPHILS % (AUTO) 58.9 % (43.0-81.0); PLATELET COUNT (AUTO) 430 /CMM (150-450); RED BLOOD CELL COUNT(AUTO) 2.73 MIL/uL (4.0-5.2)
[2019-08-02 07:58] VITALS: BP 141/77
[2019-08-02 08:27] LABS: EOSINOPHILS % (MANUAL) 6 % (0-4); LYMPHOCYTES % (MANUAL) 27 % (16-48); MONOCYTES % (MANUAL) 15 % (0-11.0); NEUTROPHILS % (MANUAL) 52 (42-76)
[2019-08-02] MEDS: HYDROGEN PEROXIDE 480 ML BOTTLE TP SCH ×2 (09:00→19:49)
[2019-08-02] MEDS: DOCUSATE SODIUM LIQ 100 MG/10 ML UDC GT SCH (09:53)
[2019-08-02] MEDS: SENNOSIDES 8.6 MG TABLET GT SCH ×2 (09:53→21:16)
[2019-08-02] MEDS: ACIDOPHILUS/BULGARICUS 1 EACH TAB.CHEW GT SCH ×2 (09:53→17:29)
[2019-08-02] MEDS: MULTIVIT W/MINERALS 1 TAB TABLET GT SCH (09:53)
[2019-08-02] MEDS: TRILEPTAL GT SCH ×2 (09:53→21:16)
[2019-08-02] MEDS: SIMETHICONE SUSP 40 MG/0.6 ML BOTTLE GT SCH ×2 (09:53→21:15)
[2019-08-02] MEDS: LEVETIRACETAM SOL (5 ML) 100 MG/ML UDC GT SCH ×2 (09:53→21:15)
[2019-08-02] MEDS: FERROUS SULFATE - FOR SA ONLY 330 MG/7.5 ML UDC GT SCH ×2 (09:53→17:29)
[2019-08-02] MEDS: BACI/NEOM/POLY B OINT PKT 1 UDPKT PACKET TP SCH ×2 (09:59→21:16)
[2019-08-02] MEDS: VITS A AND D/WHITE PET/LANOLIN 5 GM PACKET TP SCH ×2 (09:59→21:16)
[2019-08-02] MEDS: Z GUARD REMEDY 4 OZ OINT TP SCH ×2 (09:59→21:16)
--- NOTE | 2019-08-02 10:52 | NUR ---
Family invitation to [facility] Support Group and IDT: SW called and spoke to the pt.s Sister, Beckie Chu [phone] to invite her to the [facility] Support Group on 08/10/2019 11 am and the next IDT meeting on 08/12/2019 12:30 pm. Per Beckie, she will not be able to attend support group but would like to attend IDT meeting. Noted.
--- NOTE | 2019-08-02 10:53 | NUR ---
The pt.s Sister, Beckie Chu [phone] informed SW that the pt. is now Medicare recipient and Beckie stated she will provide admitting with a copy of the Medicare Card. STEPHEN informed Beckie that she must complete and sign "Authorization for Use and Disclosure of Health Information" for SW to attempt to get wheelchair for patient as she requested. Beckie expressed understanding and will complete as soon as possible. STEPHEN filed paperwork in pt.'s chart for Beckie to sign.
[2019-08-02] MEDS: GLUCERNA 1.2 1,000 ML BOTTLE GT PRN (13:20)
--- NOTE | 2019-08-02 16:15 | NUR ---
Notified GMAT INSTRUCTOR Gertrude of WBC 17. Pt will complete Fortaz and Amikacin tonight. Pt afebrile, T 98.8 F, urine from Bourgeois catheter is yellowish, no foul odor noted. No new order.
[2019-08-02 20:23] VITALS: BP 112/74
--- NOTE | 2019-08-02 21:07 | NUR ---
RT NOTE PT RECEIVED TRACHED ON MECHANICAL VENTILATION. AMBU BAG/BACK UP TRACH @ BEDSIDE. TX GIVEN, NO ADVERSE REACTIONS NOTED. SX DONE, TRACH SECURED AND PATENT. NO DISTRESS NOTED AT THIS TIME. WILL MONITOR. Addendum: 08/02/19 at 2108 by BRIEN NEAL RT Amended: Links added.
[2019-08-02] MEDS: INSULIN GLARGINE, 100 UNIT/ML CARTRIDGE SQ SCH (21:16)
[2019-08-02] MEDS: ASCORBIC ACID 500 MG TABLET GT SCH (21:16)
[2019-08-02] MEDS: CEFTAZIDIME 1 G in IV D5W 50 ML IV SCH (22:00)
[2019-08-03] MEDS: ALBUTEROL FS 2.5 MG/3 ML VIAL.NEB NEB SCH ×4 (01:46→19:41)
[2019-08-03] MEDS: OMEPRAZOLE 20 MG CAPSULE.DR GT SCH (05:58)
[2019-08-03] MEDS: METOCLOPRAMIDE HCL 10 MG TABLET GT SCH ×3 (05:58→18:15)
[2019-08-03] MEDS: BLOOD SUGAR DIAGNOSTIC 1 EACH STRIP IN SCH ×2 (05:58→18:15)
[2019-08-03] MEDS: GABAPENTIN 250 MG/5 ML SOLUTION GT SCH ×3 (05:58→21:59)
[2019-08-03 07:26] VITALS: BP 133/76
[2019-08-03] MEDS: SENNOSIDES 8.6 MG TABLET GT SCH ×2 (09:37→21:59)
[2019-08-03] MEDS: DOCUSATE SODIUM LIQ 100 MG/10 ML UDC GT SCH (09:37)
[2019-08-03] MEDS: Z GUARD REMEDY 4 OZ OINT TP SCH ×2 (09:37→21:59)
[2019-08-03] MEDS: ACIDOPHILUS/BULGARICUS 1 EACH TAB.CHEW GT SCH ×2 (09:37→17:18)
[2019-08-03] MEDS: BACI/NEOM/POLY B OINT PKT 1 UDPKT PACKET TP SCH ×2 (09:37→21:59)
[2019-08-03] MEDS: TRILEPTAL GT SCH ×2 (09:37→21:59)
[2019-08-03] MEDS: SIMETHICONE SUSP 40 MG/0.6 ML BOTTLE GT SCH ×2 (09:37→21:59)
[2019-08-03] MEDS: MULTIVIT W/MINERALS 1 TAB TABLET GT SCH (09:37)
[2019-08-03] MEDS: FERROUS SULFATE - FOR SA ONLY 330 MG/7.5 ML UDC GT SCH ×2 (09:37→17:18)
[2019-08-03] MEDS: LEVETIRACETAM SOL (5 ML) 100 MG/ML UDC GT SCH ×2 (09:37→21:59)
[2019-08-03] MEDS: VITS A AND D/WHITE PET/LANOLIN 5 GM PACKET TP SCH ×2 (09:38→21:59)
[2019-08-03] MEDS: HYDROGEN PEROXIDE 480 ML BOTTLE TP SCH ×2 (10:17→19:41)
--- NOTE | 2019-08-03 10:31 | NUR ---
Inserted new gtube 20fr for resident, used clean technique, balloon inflated with 20ml ns, checked for residual and patency, procedure tolerated well.
--- NOTE | 2019-08-03 10:35 | NUR ---
Noted that GT has hole and milk was leaking, replaced GT, tolerated well. Dr. Luis informed, gave order to do KUB to confirm placement. Left message to Beckie (sister). Will continue to monitor.
[2019-08-03] MEDS ORDERED: DIATR MEGLU/DIATRIZOATE SODIUM 30 ML BOTTLE (GASTROGRAPHIN) ONE (11:19)
[2019-08-03] MEDS: GLUCERNA 1.2 1,000 ML BOTTLE GT PRN (13:01)
[2019-08-03 20:44] VITALS: BP 135/88
[2019-08-03] MEDS: ASCORBIC ACID 500 MG TABLET GT SCH (21:59)
[2019-08-03] MEDS: INSULIN GLARGINE, 100 UNIT/ML CARTRIDGE SQ SCH (22:16)
[2019-08-04] MEDS: GLUCERNA 1.2 1,000 ML BOTTLE GT PRN ×2 (00:02→16:40)
[2019-08-04] MEDS: METOCLOPRAMIDE HCL 10 MG TABLET GT SCH ×5 (00:02→23:50)
[2019-08-04] MEDS: ALBUTEROL FS 2.5 MG/3 ML VIAL.NEB NEB SCH ×4 (01:42→19:45)
[2019-08-04] MEDS: GABAPENTIN 250 MG/5 ML SOLUTION GT SCH ×3 (05:30→21:55)
[2019-08-04] MEDS: BLOOD SUGAR DIAGNOSTIC 1 EACH STRIP IN SCH ×2 (05:30→17:22)
[2019-08-04] MEDS: OMEPRAZOLE 20 MG CAPSULE.DR GT SCH (05:30)
[2019-08-04] MEDS: INSULIN REGULAR, HUMAN 100 UNIT/ML 3 ML VIAL SQ PRN ×2 (05:32→17:29)
[2019-08-04 07:43] VITALS: BP 138/84
[2019-08-04] MEDS: HYDROGEN PEROXIDE 480 ML BOTTLE TP SCH ×2 (08:12→21:15)
[2019-08-04] MEDS: DOCUSATE SODIUM LIQ 100 MG/10 ML UDC GT SCH (08:15)
[2019-08-04] MEDS: TRILEPTAL GT SCH ×2 (08:15→21:55)
[2019-08-04] MEDS: MULTIVIT W/MINERALS 1 TAB TABLET GT SCH (08:15)
[2019-08-04] MEDS: SIMETHICONE SUSP 40 MG/0.6 ML BOTTLE GT SCH ×2 (08:15→21:54)
[2019-08-04] MEDS: FERROUS SULFATE - FOR SA ONLY 330 MG/7.5 ML UDC GT SCH ×2 (08:15→17:22)
[2019-08-04] MEDS: SENNOSIDES 8.6 MG TABLET GT SCH ×2 (08:15→21:55)
[2019-08-04] MEDS: BACI/NEOM/POLY B OINT PKT 1 UDPKT PACKET TP SCH ×2 (08:15→21:55)
[2019-08-04] MEDS: ACIDOPHILUS/BULGARICUS 1 EACH TAB.CHEW GT SCH ×2 (08:15→17:22)
[2019-08-04] MEDS: Z GUARD REMEDY 4 OZ OINT TP SCH ×2 (08:15→21:55)
[2019-08-04] MEDS: LEVETIRACETAM SOL (5 ML) 100 MG/ML UDC GT SCH ×2 (08:15→21:54)
[2019-08-04] MEDS: VITS A AND D/WHITE PET/LANOLIN 5 GM PACKET TP SCH ×2 (08:15→21:55)
--- NOTE | 2019-08-04 09:55 | NUR ---
Informed Dr Luis that KUB from yesterday showed pt's nephrostomy tube may be displaced.
--- NOTE | 2019-08-04 13:15 | NUR ---
RT PT RECEIVED TRACH'D ON MECHANICAL VENT WITH SETTINGS PER MD ORDER. APPAREL PATTERN MAKER DONE. VENT PLUGGED INTO RED OUTLET. SPARE TRACH AND AMBU BAG AT BEDSIDE. VENT ALARMS ON AND FUNCTIONING PROPERLY. TRACH SECURED AND PATENT. TRACH CARE DONE. TX'S GIVEN ORDERED. NO ADVERSE REACTIONS OBSERVED. NO SOB NOTED. WILL CONTINUE TO MONITOR THE PATIENT FOR ANY CHANGES. Addendum: 08/04/19 at 1719 by YAMIL MARTINEZ RT Amended: Links added.
--- NOTE | 2019-08-04 16:54 | NUR ---
Relayed yesterday's KUB result to Dr Luis. Informed him that pt's output from nephrostomy tube is only 10 mL. He ordered to have IR replace the nephrostomy tube. Notified Beckie.
--- NOTE | 2019-08-04 16:58 | NUR ---
Called Radiology and spoke with Yonny. He said they will not be able to do the nephrostomy tube replacement today, it will probably be done tomorrow.
[2019-08-04 19:39] VITALS: BP 136/83
--- NOTE | 2019-08-04 19:45 | NUR ---
RT NOTES PT RECEIVED TRACHED ON [facility] VENT ON CHARTED SETTINGS. NO SIGNS OF RESP DISTRESS NOTED AT THIS TIME. AIRWAY PATENT AND SECURED. SUPERVISOR SAFETY DEPOSIT DONE. PT SUCTIONED. HHN TX GIVEN. NO ADVERSE REACTIONS NOTED. AMBUBAG AND SPARE TRACH PRESENT. VENT CONNECTED TO RED OUTLET. WILL CONT TO MONITOR. Addendum: 08/04/19 at 2244 by EDDI GUTIÉRREZ RT Amended: Links added.
[2019-08-04] MEDS: ASCORBIC ACID 500 MG TABLET GT SCH (21:55)
[2019-08-04] MEDS: INSULIN GLARGINE, 100 UNIT/ML CARTRIDGE SQ SCH (22:40)
[2019-08-05] MEDS: ALBUTEROL FS 2.5 MG/3 ML VIAL.NEB NEB SCH ×4 (01:39→19:15)
[2019-08-05] MEDS: GABAPENTIN 250 MG/5 ML SOLUTION GT SCH ×3 (05:00→20:04)
[2019-08-05] MEDS: METOCLOPRAMIDE HCL 10 MG TABLET GT SCH ×4 (05:26→23:01)
[2019-08-05] MEDS: OMEPRAZOLE 20 MG CAPSULE.DR GT SCH (05:26)
[2019-08-05] MEDS: BLOOD SUGAR DIAGNOSTIC 1 EACH STRIP IN SCH ×2 (05:40→17:10)
[2019-08-05] MEDS: INSULIN REGULAR, HUMAN 100 UNIT/ML 3 ML VIAL SQ PRN (05:41)
[2019-08-05 07:49] VITALS: BP 115/73
[2019-08-05] MEDS: HYDROGEN PEROXIDE 480 ML BOTTLE TP SCH ×2 (08:12→20:06)
[2019-08-05] MEDS: MULTIVIT W/MINERALS 1 TAB TABLET GT SCH (09:00)
[2019-08-05] MEDS: BACI/NEOM/POLY B OINT PKT 1 UDPKT PACKET TP SCH ×2 (09:00→20:04)
[2019-08-05] MEDS: VITS A AND D/WHITE PET/LANOLIN 5 GM PACKET TP SCH ×2 (09:00→20:04)
[2019-08-05] MEDS: DOCUSATE SODIUM LIQ 100 MG/10 ML UDC GT SCH (09:00)
[2019-08-05] MEDS: ACIDOPHILUS/BULGARICUS 1 EACH TAB.CHEW GT SCH ×2 (09:00→16:44)
[2019-08-05] MEDS: TRILEPTAL GT SCH ×2 (09:00→20:04)
[2019-08-05] MEDS: LEVETIRACETAM SOL (5 ML) 100 MG/ML UDC GT SCH ×2 (09:00→20:03)
[2019-08-05] MEDS: FERROUS SULFATE - FOR SA ONLY 330 MG/7.5 ML UDC GT SCH ×2 (09:00→16:44)
[2019-08-05] MEDS: Z GUARD REMEDY 4 OZ OINT TP SCH ×2 (09:00→20:04)
[2019-08-05] MEDS: SIMETHICONE SUSP 40 MG/0.6 ML BOTTLE GT SCH ×2 (09:00→20:04)
[2019-08-05] MEDS: SENNOSIDES 8.6 MG TABLET GT SCH ×2 (09:00→20:04)
--- NOTE | 2019-08-05 10:22 | NUR ---
Resident left for nephrostomy placement, consent signed. Patient with no respiratory distress and no s/s of discomfort.
--- NOTE | 2019-08-05 11:36 | NUR ---
WC Update: The patients sister, Beckie Chu requested that SW look into getting the patient a [id number] wheelchair. Beckie signed Authorization for Use or Disclosure of Health Information on 08/04/2019. STEPHEN faxed the patients face sheet to [employer] FAX:[phone] attn: Mirna to verify if the patients insurance will cover wheelchair. STEPHEN received fax confirmation receipt.
--- NOTE | 2019-08-05 13:10 | NUR ---
Patient received awake in bed, no respiratory distress, no s/s of pain at this time. Patient's nephrostomy intact and patent, draining clear pinkish urine. Nephrostomy site with dressing c/d/i. Will continue to monitor patient.
--- NOTE | 2019-08-05 18:10 | NUR ---
RT NOTE RECEIVED PATIENT ON TRACH WITH MECHANICAL VENTILATOR. TRACH IS PATENT AND SECURED. SPARE TRACH AND BVM IS AT BEDSIDE. ALARMS ARE SET AND AUDIBLE. VENTILATOR IS PLUGGED TO RED OUTLET. PATIENT HAS EQUAL CHEST RISE WITH COARSE BILATERAL BREATH SOUNDS. SUCTION MODERATE AMOUNT OF THIN WHITE SECRETIONS THROUGH OUT THE DAY. Q6 BREATHING TREATMENTS WERE GIVEN WITH NO ADVERSE REACTIONS. PATIENT IS IN SYNC AND COMFORTABLE ON THE VENTILATOR. Addendum: 08/05/19 at 1812 by DAVE HICKMAN RT Amended: Links added.
--- NOTE | 2019-08-05 19:28 | NUR ---
PT RECEIVED TRACHED ON [facility] VENT ON CHARTED SETTINGS. NO SIGNS OF RESP DISTRESS NOTED AT THIS TIME. AIRWAY PATENT AND SECURED. CROWN WHEEL ASSEMBLER DONE. PT SUCTIONED. ALARMS SET AND AUDIBLE. AMBUBAG AND SPARE TRACH AT BEDSIDE. VENT CONNECTED TO RED OUTLET. WILL CONT TO MONITOR Addendum: 08/05/19 at 1928 by ALIA TEIXEIRA RT Amended: Links added.
[2019-08-05 19:59] VITALS: BP 127/75
[2019-08-05] MEDS: ASCORBIC ACID 500 MG TABLET GT SCH (20:04)
[2019-08-05 20:08] VITALS: BP 127/75
[2019-08-05] MEDS: INSULIN GLARGINE, 100 UNIT/ML CARTRIDGE SQ SCH (21:48)
[2019-08-06] MEDS: ALBUTEROL FS 2.5 MG/3 ML VIAL.NEB NEB SCH ×4 (00:59→20:10)
[2019-08-06] MEDS: GABAPENTIN 250 MG/5 ML SOLUTION GT SCH ×3 (05:19→21:03)
[2019-08-06] MEDS: OMEPRAZOLE 20 MG CAPSULE.DR GT SCH (05:21)
[2019-08-06] MEDS: METOCLOPRAMIDE HCL 10 MG TABLET GT SCH ×3 (05:21→17:12)
[2019-08-06] MEDS: BLOOD SUGAR DIAGNOSTIC 1 EACH STRIP IN SCH ×2 (05:21→17:12)
[2019-08-06] MEDS: INSULIN REGULAR, HUMAN 100 UNIT/ML 3 ML VIAL SQ PRN ×2 (06:48→17:20)
--- NOTE | 2019-08-06 07:17 | NUR ---
PT RECEIVED TRACHED ON [facility] VENT ON CHARTED SETTINGS. NO SIGNS OF RESP DISTRESS NOTED AT THIS TIME. AIRWAY PATENT AND SECURED. SOLAR LAB TECHNICIAN DONE. PT SUCTIONED. ALARMS SET AND AUDIBLE. AMBUBAG AND SPARE TRACH AT BEDSIDE. VENT CONNECTED TO RED OUTLET. WILL CONT TO MONITOR Addendum: 08/06/19 at 0717 by ALIA TEIXEIRA RT Amended: Links added.
[2019-08-06 07:42] VITALS: BP 130/78
[2019-08-06] MEDS: VITS A AND D/WHITE PET/LANOLIN 5 GM PACKET TP SCH ×2 (09:00→21:03)
[2019-08-06] MEDS: BACI/NEOM/POLY B OINT PKT 1 UDPKT PACKET TP SCH (09:00)
[2019-08-06] MEDS: Z GUARD REMEDY 4 OZ OINT TP SCH ×2 (09:00→21:03)
[2019-08-06] MEDS: HYDROGEN PEROXIDE 480 ML BOTTLE TP SCH ×2 (09:11→21:21)
[2019-08-06] MEDS: FERROUS SULFATE - FOR SA ONLY 330 MG/7.5 ML UDC GT SCH ×2 (09:19→17:12)
[2019-08-06] MEDS: LEVETIRACETAM SOL (5 ML) 100 MG/ML UDC GT SCH ×2 (09:19→21:03)
[2019-08-06] MEDS: DOCUSATE SODIUM LIQ 100 MG/10 ML UDC GT SCH (09:19)
[2019-08-06] MEDS: ACIDOPHILUS/BULGARICUS 1 EACH TAB.CHEW GT SCH ×2 (09:20→17:12)
[2019-08-06] MEDS: SIMETHICONE SUSP 40 MG/0.6 ML BOTTLE GT SCH ×2 (09:20→21:03)
[2019-08-06] MEDS: TRILEPTAL GT SCH ×2 (09:21→21:03)
[2019-08-06] MEDS: SENNOSIDES 8.6 MG TABLET GT SCH ×2 (09:21→21:03)
[2019-08-06] MEDS: MULTIVIT W/MINERALS 1 TAB TABLET GT SCH (09:21)
[2019-08-06] MEDS: GLUCERNA 1.2 1,000 ML BOTTLE GT PRN (11:36)
[2019-08-06 20:43] VITALS: BP 126/70
[2019-08-06] MEDS: ASCORBIC ACID 500 MG TABLET GT SCH (21:03)
[2019-08-06] MEDS: INSULIN GLARGINE, 100 UNIT/ML CARTRIDGE SQ SCH (22:20)
[2019-08-07] MEDS: METOCLOPRAMIDE HCL 10 MG TABLET GT SCH ×4 (00:08→17:57)
[2019-08-07] MEDS: ALBUTEROL FS 2.5 MG/3 ML VIAL.NEB NEB SCH ×4 (02:04→19:35)
[2019-08-07] MEDS: GABAPENTIN 250 MG/5 ML SOLUTION GT SCH ×3 (05:40→21:08)
[2019-08-07] MEDS: OMEPRAZOLE 20 MG CAPSULE.DR GT SCH (05:40)
[2019-08-07] MEDS: GLUCERNA 1.2 1,000 ML BOTTLE GT PRN (05:40)
[2019-08-07] MEDS: BLOOD SUGAR DIAGNOSTIC 1 EACH STRIP IN SCH ×2 (06:01→17:57)
[2019-08-07] MEDS: INSULIN REGULAR, HUMAN 100 UNIT/ML 3 ML VIAL SQ PRN ×2 (06:04→18:08)
[2019-08-07 08:07] VITALS: BP 118/69
[2019-08-07] MEDS: MULTIVIT W/MINERALS 1 TAB TABLET GT SCH (08:17)
[2019-08-07] MEDS: FERROUS SULFATE - FOR SA ONLY 330 MG/7.5 ML UDC GT SCH ×2 (08:17→17:57)
[2019-08-07] MEDS: SIMETHICONE SUSP 40 MG/0.6 ML BOTTLE GT SCH ×2 (08:17→21:08)
[2019-08-07] MEDS: Z GUARD REMEDY 4 OZ OINT TP SCH ×2 (08:17→21:08)
[2019-08-07] MEDS: LEVETIRACETAM SOL (5 ML) 100 MG/ML UDC GT SCH ×2 (08:17→21:08)
[2019-08-07] MEDS: DOCUSATE SODIUM LIQ 100 MG/10 ML UDC GT SCH (08:17)
[2019-08-07] MEDS: VITS A AND D/WHITE PET/LANOLIN 5 GM PACKET TP SCH ×2 (08:17→21:08)
[2019-08-07] MEDS: TRILEPTAL GT SCH ×2 (08:17→21:08)
[2019-08-07] MEDS: SENNOSIDES 8.6 MG TABLET GT SCH ×2 (08:17→21:08)
[2019-08-07] MEDS: ACIDOPHILUS/BULGARICUS 1 EACH TAB.CHEW GT SCH ×2 (08:17→17:57)
[2019-08-07] MEDS: HYDROGEN PEROXIDE 480 ML BOTTLE TP SCH ×2 (08:27→21:06)
--- NOTE | 2019-08-07 17:27 | NUR ---
RT NOTE RECEIVED PATIENT ON TRACH WITH MECHANICAL VENTILATOR. TRACH IS PATENT AND SECURED. SPARE TRACH AND BVM IS AT BEDSIDE. ALARMS ARE SET AND AUDIBLE. VENTILATOR IS PLUGGED TO THE RED OUTLET. PATIENT HAS EQUAL CHEST RISE WITH COARSE BILATERAL BREATH SOUNDS. SUCTION SMALL AMOUNT OF THIN WHITE SECRETIONS THROUGH OUT THE DAY. PATIENT TOLERATED Q6 BREATHING TREATMENTS WELL. PATIENT IS IN SYNC AND COMFORTABLE ON THE VENTILATOR. Addendum: 08/07/19 at 1727 by DAVE HICKMAN RT Amended: Links added.
[2019-08-07 20:33] VITALS: BP 105/71
[2019-08-07] MEDS: ASCORBIC ACID 500 MG TABLET GT SCH (21:08)
[2019-08-07] MEDS: INSULIN GLARGINE, 100 UNIT/ML CARTRIDGE SQ SCH (21:09)
[2019-08-08] MEDS: METOCLOPRAMIDE HCL 10 MG TABLET GT SCH ×5 (00:10→23:45)
[2019-08-08] MEDS: ALBUTEROL FS 2.5 MG/3 ML VIAL.NEB NEB SCH ×4 (01:42→19:33)
[2019-08-08] MEDS: BLOOD SUGAR DIAGNOSTIC 1 EACH STRIP IN SCH ×2 (05:51→17:54)
[2019-08-08] MEDS: GABAPENTIN 250 MG/5 ML SOLUTION GT SCH ×3 (05:51→21:06)
[2019-08-08] MEDS: OMEPRAZOLE 20 MG CAPSULE.DR GT SCH (05:51)
[2019-08-08 07:33] VITALS: BP 100/53
[2019-08-08] MEDS: HYDROGEN PEROXIDE 480 ML BOTTLE TP SCH ×2 (08:11→21:00)
[2019-08-08] MEDS: FERROUS SULFATE - FOR SA ONLY 330 MG/7.5 ML UDC GT SCH ×2 (09:00→17:54)
[2019-08-08] MEDS: SIMETHICONE SUSP 40 MG/0.6 ML BOTTLE GT SCH ×2 (09:00→21:06)
[2019-08-08] MEDS: SENNOSIDES 8.6 MG TABLET GT SCH ×2 (09:00→21:06)
[2019-08-08] MEDS: VITS A AND D/WHITE PET/LANOLIN 5 GM PACKET TP SCH ×2 (09:00→21:07)
[2019-08-08] MEDS: ACIDOPHILUS/BULGARICUS 1 EACH TAB.CHEW GT SCH ×2 (09:00→17:54)
[2019-08-08] MEDS: DOCUSATE SODIUM LIQ 100 MG/10 ML UDC GT SCH (09:00)
[2019-08-08] MEDS: Z GUARD REMEDY 4 OZ OINT TP SCH ×2 (09:00→21:06)
[2019-08-08] MEDS: LEVETIRACETAM SOL (5 ML) 100 MG/ML UDC GT SCH ×2 (09:00→21:06)
[2019-08-08] MEDS: TRILEPTAL GT SCH ×2 (09:00→21:06)
[2019-08-08] MEDS: MULTIVIT W/MINERALS 1 TAB TABLET GT SCH (09:00)
[2019-08-08] MEDS: EPOETIN ALFA (10,000 UNIT) 10,000 UNIT/ML VIAL SQ SCH (10:48)
--- NOTE | 2019-08-08 13:20 | NUR ---
Wheelchair Update: STEPHEN received a call from Mirna at [employer] TEL: [phone] FAX:[phone] stating that they do not accept Medicare. STEPHEN contacted [facility] and spoke to [employer] TEL: [phone] who stated that they do accept Medicare. However, Medicare will not pay for Cesv-Ot-Esccf Wheelchair but they will pay for a recliner chair. STEPHEN informed the patient's customer field representative above stated information and she was agreeable to obtaining a recliner wheelchair for the patient. Beckie signed "Authorization to Disclose medical information". STEPHEN faxed the patient's facesheet to ATTN:[employer] FAX: [phone]. STEPHEN will await response.
--- NOTE | 2019-08-08 16:10 | NUR ---
RT NOTE RECEIVED PATIENT ON MECHANICAL VENT WITH ORDERED SETTINGS. ALARMS ON AND AUDIBLE. VENT PLUGGED IN TO RED OUTLET. TRACH TUBE IN PLACE, PATENT, AND SECURED WITH TRACH TIE. BACK UP TRACH AND AMBU BAG BY THE BEDSIDE. NO DISTRESS AT THIS TIME.
[2019-08-08] MEDS: INSULIN REGULAR, HUMAN 100 UNIT/ML 3 ML VIAL SQ PRN (17:56)
[2019-08-08 19:51] VITALS: BP 118/70
--- NOTE | 2019-08-08 20:20 | NUR ---
RN NOTES Seen and examined by Anna Vargas NP, with NNO.
[2019-08-08] MEDS: ASCORBIC ACID 500 MG TABLET GT SCH (21:06)
[2019-08-08] MEDS: INSULIN GLARGINE, 100 UNIT/ML CARTRIDGE SQ SCH (21:07)
[2019-08-09] MEDS: ALBUTEROL FS 2.5 MG/3 ML VIAL.NEB NEB SCH ×3 (01:20→13:30)
[2019-08-09] MEDS: OMEPRAZOLE 20 MG CAPSULE.DR GT SCH (05:49)
[2019-08-09] MEDS: GABAPENTIN 250 MG/5 ML SOLUTION GT SCH (05:49)
[2019-08-09] MEDS: METOCLOPRAMIDE HCL 10 MG TABLET GT SCH (05:50)
[2019-08-09] MEDS: BLOOD SUGAR DIAGNOSTIC 1 EACH STRIP IN SCH (05:50)
[2019-08-09] MEDS: INSULIN REGULAR, HUMAN 100 UNIT/ML 3 ML VIAL SQ PRN (05:50)
[2019-08-09 07:17] LABS: ALBUMIN 2.1 g/dL (3.4-5.0); BILIRUBIN,TOTAL 0.2 mg/dL (0.2-1.0); CALCIUM, SERUM 9.8 mg/dL (8.5-10.1); CREATININE 4.9 mg/dL (0.6-1.3); MAGNESIUM 3.4 mg/dL (1.8-2.4); PHOSPHORUS 6.3 mg/dL (2.5-4.9); TOTAL PROTEIN, SERUM 8.5 g/dL (6.4-8.2)
[2019-08-09 07:31] VITALS: BP 109/63
[2019-08-09 07:46] VITALS: BP 116/68
[2019-08-09 07:52] LABS: BASOPHILS # (AUTO) 0.1 /CMM (0.0-0.2); BASOPHILS % (AUTO) 0.3 % (0.0-2.0); LYMPHOCYTES # (AUTO) 1.7 /CMM (0.8-4.8); LYMPHOCYTES % (AUTO) 10.8 % (20.0-44.0); MEAN CORPUSCULAR HGB CONC 33 g/dl (31.0-36.0); MEAN CORPUSCULAR VOLUME 100 fL (82-100); MONOCYTES # (AUTO) 1.2 /CMM (0.1-1.30); MONOCYTES % (AUTO) 7.5 % (2.0-12.0); NEUTROPHILS # (AUTO) 12.9 /CMM (1.8-8.9); NEUTROPHILS % (AUTO) 80.4 % (43.0-81.0); PLATELET COUNT (AUTO) 250 /CMM (150-450); WHITE BLOOD COUNT (AUTO) 16.1 K/uL (4.3-11.0)
[2019-08-09 07:55] LABS: RED BLOOD CELL COUNT(AUTO) 1.25 MIL/uL (4.0-5.2)
[2019-08-09 07:56] LABS: HEMATOCRIT 13 % (33-45)
[2019-08-09 07:57] LABS: HEMOGLOBIN 4.1 g/dL (11.5-14.8)
--- NOTE | 2019-08-09 08:10 | NUR ---
Night charge nurse endorsed that pt's Hgb 4.1 and she had lab do a redraw. Hgb 5.[address] Luis. Received order to transfust 2 units of PRBC, start 1/2 NS at 80 mL/hr IV. Informed Dr Luis of Cr 4.9, Cr was 2.7 on 08/02/19. Dr Luis said he also noticed it. Dr Luis ordered CT abdomen and pelvis to check for retroperitoneal bleed. Notified Beckie.
--- NOTE | 2019-08-09 08:23 | NUR ---
Van from lab called to inform charge nurse that CBC was redrawn (3rd time) and it matched the first results. Hgb 4.1.
[2019-08-09 08:39] LABS: BASOPHILS % (AUTO) 0.3 % (0.0-2.0); EOSINOPHILS % (AUTO) 0.9 % (0.0-6.0); LYMPHOCYTES # (AUTO) 2.4 /CMM (0.8-4.8); LYMPHOCYTES % (AUTO) 16.1 % (20.0-44.0); MEAN CORPUSCULAR HGB CONC 33 g/dl (31.0-36.0); MEAN CORPUSCULAR VOLUME 102 fL (82-100); MONOCYTES # (AUTO) 1.3 /CMM (0.1-1.30); MONOCYTES % (AUTO) 8.4 % (2.0-12.0); NEUTROPHILS # (AUTO) 11.1 /CMM (1.8-8.9); NEUTROPHILS % (AUTO) 74.3 % (43.0-81.0); PLATELET COUNT (AUTO) 249 /CMM (150-450); WHITE BLOOD COUNT (AUTO) 14.9 K/uL (4.3-11.0)
[2019-08-09 08:40] LABS: HEMATOCRIT 12 % (33-45); HEMOGLOBIN 4.1 g/dL (11.5-14.8)
[2019-08-09] MEDS: HYDROGEN PEROXIDE 480 ML BOTTLE TP SCH (08:55)
[2019-08-09] MEDS: SIMETHICONE SUSP 40 MG/0.6 ML BOTTLE GT SCH ×2 (09:00→21:00)
[2019-08-09] MEDS ORDERED: TUBERCULIN,PURIF.PROT.DERIV. 5 TU/0.1 ML VIAL ID SCH (09:00)
[2019-08-09] MEDS: SENNOSIDES 8.6 MG TABLET GT SCH (09:00)
[2019-08-09] MEDS: Z GUARD REMEDY 4 OZ OINT TP SCH ×2 (09:00→21:00)
[2019-08-09] MEDS: DOCUSATE SODIUM LIQ 100 MG/10 ML UDC GT SCH (09:00)
[2019-08-09] MEDS: LEVETIRACETAM SOL (5 ML) 100 MG/ML UDC GT SCH (09:00)
[2019-08-09] MEDS: TRILEPTAL GT SCH (09:00)
[2019-08-09] MEDS: MULTIVIT W/MINERALS 1 TAB TABLET GT SCH (09:00)
[2019-08-09] MEDS: VITS A AND D/WHITE PET/LANOLIN 5 GM PACKET TP SCH (09:00)
[2019-08-09] MEDS: FERROUS SULFATE - FOR SA ONLY 330 MG/7.5 ML UDC GT SCH (09:00)
[2019-08-09] MEDS: ACIDOPHILUS/BULGARICUS 1 EACH TAB.CHEW GT SCH (09:00)
[2019-08-09 10:00] VITALS: BP 122/86
--- NOTE | 2019-08-09 10:00 | NUR ---
Started transfusing 1 unit of PRBC via left upper arm midline. Pt awake, responsive. T 97.5 F BP 122/86 HR 80 R 18.
[2019-08-09 10:01] LABS: EOSINOPHILS % (MANUAL) 2 % (0-4); LYMPHOCYTES % (MANUAL) 10 % (16-48); MONOCYTES % (MANUAL) 6 % (0-11.0); NEUTROPHILS % (MANUAL) 82 (42-76)
[2019-08-09 10:19] VITALS: BP 147/76
--- NOTE | 2019-08-09 11:00 | NUR ---
Notified Dr Luis that CT abdomen pelvis has not been done yet since blood transfusion has already been started when radiology called to cloth picker pt. Asked him if it is fine to send pt to CT after first unit of PRBC is transfused. Also informed him that lab rechecked CBC when they jacquelyn blood for type and screen and Hgb is 4.1. Dr Luis ordered to transfer pt to acute hospital. Notified pt's sister Beckie.
[2019-08-09] MEDS ORDERED: IV 1/2NS 1000 ML 1,000 ML IV PRN (11:30)
[2019-08-09 11:50] VITALS: BP 113/70
--- NOTE | 2019-08-09 11:50 | NUR ---
Pt transferred to ER, accompanied by RN, RT, and ELECTORATE OFFICER. Report given to Jocelyn. Addendum: 08/09/19 at 1457 by SARITA GOMEZ RN First unit of PRBC was still transfusing when pt was sent to ER. Informed BRIANNA Mcgrath that 2nd PRBC is available.
--- NOTE | 2019-08-09 11:54 | NUR ---
RT NOTE: ASSISTED WITH TRANSPORTING PATIENT TO ER. PATIENT HAS SHILEY #8 XL TRACH ON LTV VENT. VENT IS CONNECTED TO RED OUTLET. PATIENT'S RESPIRATIONS ARE EVEN AND UNLABORED. AMBU BAG AT [facility].
[2019-08-09] MEDS ORDERED: EPOE1VIA6 SQ (12:42)
[2019-08-09] MEDS ORDERED: OMEP20TA5 GT (12:46)
[2019-08-09] MEDS ORDERED: LORA-259 IVP (12:52)
[2019-08-09] MEDS ORDERED: ONDA-97 GT (12:52)
[2019-08-09] MEDS ORDERED: SENN-18 GT (12:52)
[2019-08-10] MEDS ORDERED: HYDROGEN PEROXIDE 480 ML BOTTLE TP PRN (10:00)
[2019-08-10] MEDS ORDERED: LEVETIRACETAM SOL (5 ML) 100 MG/ML UDC GT SCH (21:00)
[2019-08-10] MEDS ORDERED: HYDROGEN PEROXIDE 480 ML BOTTLE TP SCH (21:00)
[2019-08-12] MEDS ORDERED: PIPE2.257 IV (08:22)
[2019-08-12] MEDS ORDERED: SOD62.5V IV (08:22)
[2019-08-12] MEDS: GABAPENTIN 250 MG/5 ML SOLUTION GT SCH ×2 (13:00→21:41)
--- NOTE | 2019-08-12 13:00 | NUR ---
Readmitted resident from [facility] per bed pushed by RN and RT. Awake, nonverbal. Trach secured and midline fastened with trach cloth tie. On mechanical ventilator, tolerating well. No s/sx of resp. distress. Resp. even and unlabored. GT intact and patent. Bourgeois catheter intact and patent. Nephrostomy tube on left side intact and patent draining bloody output. Staff educated how to handle patient with extra caution when rendering care. Admission care rendered. Body check done, pictures taken. All meds confirmed with Dr. Luis. Sister Beckie at bedside. On contact isolation precaution for ESBL of urine. Will continue with plan of care.
--- NOTE | 2019-08-12 17:00 | NUR ---
Seen and examined by Dr. Luis, no new order given.
--- NOTE | 2019-08-12 17:30 | NUR ---
Relayed urine culture result to NAN Loredo with new order to Kristan/Beto Sellers and start her on Amikacin per pharmacy to dose x 5 days per protocol.
--- NOTE | 2019-08-12 17:47 | NUR ---
RT NOTE RECEIVED PATIENT ON TRACH WITH MECHANICAL VENTILATOR. TRACH IS PATENT AND SECURED. SPARE TRACH AND BVM IS AT BEDSIDE. ALARMS ARE SET AND AUDIBLE. VENTILATOR IS PLUGGED TO THE RED OUTLET. PATIENT HAS EQUAL CHEST RISE WITH COARSE BILATERAL BREATH SOUNDS. SUCTION SMALL AMOUNT OF THIN WHITE SECRETIONS THROUGH OUT THE DAY. Q6 BREATHING TREATMENT GIVEN WITH NO ADVERSE REACTIONS. PATIENT IS IN SYNC AND COMFORTABLE ON THE VENTILATOR. Addendum: 08/12/19 at 1748 by DAVE HICKMAN RT Amended: Links added.
[2019-08-12] MEDS: BLOOD SUGAR DIAGNOSTIC 1 EACH STRIP IN SCH (17:51)
[2019-08-12] MEDS: METOCLOPRAMIDE HCL 10 MG TABLET GT SCH ×2 (17:51→23:30)
[2019-08-12] MEDS: INSULIN REGULAR, HUMAN 100 UNIT/ML 3 ML VIAL SQ PRN (17:55)
[2019-08-12] MEDS ORDERED: DEXTROSE 50%-WATER 50 ML DISP.SYRIN IV PRN (18:00)
[2019-08-12] MEDS ORDERED: BISACODYL SUPP (10 MG) 10 MG/SUPP.RECT SUPP.RECT RC PRN (18:00)
[2019-08-12] MEDS ORDERED: LORAZEPAM INJ 2 MG/ML VIAL IVP PRN (18:00)
[2019-08-12] MEDS ORDERED: ZOSYN IVPB 2.25 G in IV D5W 50ml IV SCH (18:00)
[2019-08-12] MEDS ORDERED: ONDANSETRON 4 MG TAB.RAPDIS GT PRN (18:00)
[2019-08-12] MEDS ORDERED: LORAZEPAM 1 MG TABLET GT PRN (18:00)
[2019-08-12] MEDS ORDERED: ACETAMINOPHEN 650 MG/20 ML UDC- SA PATIENTS-PAIN ONLY GT PRN (18:00)
[2019-08-12] MEDS ORDERED: HYDROGEN PEROXIDE 480 ML BOTTLE TP PRN (18:00)
[2019-08-12] MEDS ORDERED: DOSING PER PHARMACY-AMIKACI IV XX PRN (18:30)
[2019-08-12] MEDS ORDERED: MAG HYDROX/AL HYDROX/SIMETH 30 ML UDC GT PRN (18:30)
[2019-08-12] MEDS: HYDROGEN PEROXIDE 480 ML BOTTLE TP SCH (20:02)
[2019-08-12] MEDS: ALBUTEROL FS 2.5 MG/3 ML VIAL.NEB NEB SCH (20:02)
[2019-08-12 20:16] VITALS: BP 112/71
[2019-08-12] MEDS: Z GUARD REMEDY 2 OZ OINT TP SCH (21:40)
[2019-08-12] MEDS: VITS A AND D/WHITE PET/LANOLIN 5 GM PACKET TP SCH (21:40)
[2019-08-12] MEDS: ASCORBIC ACID 500 MG TABLET GT SCH (21:40)
[2019-08-12] MEDS: LEVETIRACETAM SOL (5 ML) 100 MG/ML UDC GT SCH (21:40)
[2019-08-12] MEDS: SENNOSIDES 8.6 MG TABLET GT SCH (21:40)
[2019-08-12] MEDS: TRILEPTAL GT SCH (21:41)
[2019-08-12] MEDS: INSULIN GLARGINE, 100 UNIT/ML CARTRIDGE SQ SCH (21:42)
[2019-08-12] MEDS: GLUCERNA 1.2 1,000 ML BOTTLE GT PRN (21:42)
[2019-08-12] MEDS: SIMETHICONE SUSP 40 MG/0.6 ML BOTTLE GT SCH (21:43)
[2019-08-12] MEDS: Z GUARD REMEDY 4 OZ OINT TP SCH (21:43)
[2019-08-12] MEDS: AMIKACIN 500 MG in IV D5W 100 ML IV SCH (23:05)
[2019-08-13] MEDS: ALBUTEROL FS 2.5 MG/3 ML VIAL.NEB NEB SCH ×4 (01:50→19:29)
[2019-08-13] MEDS: GABAPENTIN 250 MG/5 ML SOLUTION GT SCH ×3 (05:47→21:39)
[2019-08-13] MEDS: BLOOD SUGAR DIAGNOSTIC 1 EACH STRIP IN SCH ×2 (05:47→17:10)
[2019-08-13] MEDS: OMEPRAZOLE 20 MG CAPSULE.DR GT SCH (05:47)
[2019-08-13] MEDS: METOCLOPRAMIDE HCL 10 MG TABLET GT SCH ×4 (05:47→23:18)
[2019-08-13] MEDS: HYDROGEN PEROXIDE 480 ML BOTTLE TP SCH ×2 (08:12→20:17)
[2019-08-13] MEDS: MULTIVIT W/MINERALS 1 TAB TABLET GT SCH (08:41)
[2019-08-13] MEDS: TRILEPTAL GT SCH ×2 (08:41→21:39)
[2019-08-13] MEDS: SIMETHICONE SUSP 40 MG/0.6 ML BOTTLE GT SCH ×2 (08:41→21:39)
[2019-08-13] MEDS: DOCUSATE SODIUM LIQ 100 MG/10 ML UDC GT SCH (08:41)
[2019-08-13] MEDS: SENNOSIDES 8.6 MG TABLET GT SCH ×2 (08:41→21:39)
[2019-08-13] MEDS: LEVETIRACETAM SOL (5 ML) 100 MG/ML UDC GT SCH ×2 (08:41→21:39)
[2019-08-13] MEDS: ACIDOPHILUS/BULGARICUS 1 EACH TAB.CHEW GT SCH ×2 (08:41→16:51)
[2019-08-13] MEDS: Z GUARD REMEDY 2 OZ OINT TP SCH ×2 (08:42→21:40)
[2019-08-13] MEDS ORDERED: FERROUS SULFATE UDC 300 MG/5 ML UDC GT SCH ×3 (09:00)
[2019-08-13] MEDS ORDERED: TUBERCULIN,PURIF.PROT.DERIV. 5 TU/0.1 ML VIAL ID SCH (09:00)
--- NOTE | 2019-08-13 09:00 | NUR ---
@0900 am tubersol 0.1ml injection was administered on right mid forearm, pt tolerated well, lot # [id number], exp 08/13/19, manuf: [employer].
[2019-08-13] MEDS: Z GUARD REMEDY 4 OZ OINT TP SCH ×2 (09:46→21:40)
[2019-08-13] MEDS: VITS A AND D/WHITE PET/LANOLIN 5 GM PACKET TP SCH ×2 (09:47→21:40)
[2019-08-13 12:22] VITALS: BP 135/75
[2019-08-13] MEDS: SOD FERRIC GLUC 125 MG in IV NS 0.9% 100 ML IV SCH (14:50)
--- NOTE | 2019-08-13 15:41 | NUR ---
RT PT RECEIVED TRACH'D ON [facility] VENT WITH SETTINGS PER MD ORDER. WATER GAS OPERATOR DONE. VENT PLUGGED INTO RED OUTLET. SPARE TRACH AND AMBU BAG AT HEAD OF BED. VENT ALARMS ON AND WORKING PROPERLY. SUCTIONED SMALL AMOUNTS OF THICK, PALE YELLOW SECRETIONS. BREATHING TX'S GIVEN ORDERED. NO ADVERSE EFFECTS OBSERVED. NO SOB NOTED THROUGHOUT SHIFT. TRACH CARE DONE. Addendum: 08/14/19 at 1736 by YAMIL MARTINEZ RT Amended: Links added.
[2019-08-13] MEDS: INSULIN REGULAR, HUMAN 100 UNIT/ML 3 ML VIAL SQ PRN (17:10)
[2019-08-13] MEDS: GLUCERNA 1.2 1,000 ML BOTTLE GT PRN (17:10)
[2019-08-13 21:00] VITALS: BP 133/68
[2019-08-13] MEDS: INSULIN GLARGINE, 100 UNIT/ML CARTRIDGE SQ SCH (21:40)
[2019-08-13] MEDS: ASCORBIC ACID 500 MG TABLET GT SCH (21:40)
[2019-08-14] MEDS: ALBUTEROL FS 2.5 MG/3 ML VIAL.NEB NEB SCH ×4 (00:46→19:30)
[2019-08-14] MEDS: OMEPRAZOLE 20 MG CAPSULE.DR GT SCH (05:39)
[2019-08-14] MEDS: GABAPENTIN 250 MG/5 ML SOLUTION GT SCH ×3 (05:39→20:44)
[2019-08-14] MEDS: METOCLOPRAMIDE HCL 10 MG TABLET GT SCH ×4 (05:39→23:24)
[2019-08-14] MEDS: INSULIN REGULAR, HUMAN 100 UNIT/ML 3 ML VIAL SQ PRN (05:52)
[2019-08-14] MEDS: BLOOD SUGAR DIAGNOSTIC 1 EACH STRIP IN SCH ×2 (05:52→17:13)
[2019-08-14] MEDS: HYDROGEN PEROXIDE 480 ML BOTTLE TP SCH ×2 (08:15→21:13)
[2019-08-14] MEDS: DOCUSATE SODIUM LIQ 100 MG/10 ML UDC GT SCH (09:18)
[2019-08-14] MEDS: ACIDOPHILUS/BULGARICUS 1 EACH TAB.CHEW GT SCH ×2 (09:18→16:41)
[2019-08-14] MEDS: LEVETIRACETAM SOL (5 ML) 100 MG/ML UDC GT SCH ×2 (09:18→20:43)
[2019-08-14] MEDS: SIMETHICONE SUSP 40 MG/0.6 ML BOTTLE GT SCH ×2 (09:19→20:43)
[2019-08-14] MEDS: Z GUARD REMEDY 4 OZ OINT TP SCH ×2 (09:20→20:44)
[2019-08-14] MEDS: VITS A AND D/WHITE PET/LANOLIN 5 GM PACKET TP SCH ×2 (09:20→20:44)
[2019-08-14] MEDS: TRILEPTAL GT SCH ×2 (09:20→20:44)
[2019-08-14] MEDS: Z GUARD REMEDY 2 OZ OINT TP SCH ×2 (09:20→20:44)
[2019-08-14] MEDS: SENNOSIDES 8.6 MG TABLET GT SCH ×2 (09:20→20:44)
[2019-08-14] MEDS: MULTIVIT W/MINERALS 1 TAB TABLET GT SCH (09:21)
[2019-08-14 11:49] VITALS: BP 123/67
[2019-08-14] MEDS: GLUCERNA 1.2 1,000 ML BOTTLE GT PRN (14:16)
[2019-08-14] MEDS: SOD FERRIC GLUC 125 MG in IV NS 0.9% 100 ML IV SCH (15:46)
--- NOTE | 2019-08-14 16:10 | NUR ---
RT RECEIVED PATIENT TRACH'D ON [facility] VENT WITH SETTINGS PER MD ORDER. UNDERTAKER HELPER DONE. VENT PLUGGED INTO RED OUTLET. SPARE TRACH AND AMBU BAG AT HEAD OF BED. VENT ALARMS ON AND WORKING PROPERLY. SUCTIONED SMALL AMOUNTS OF THICK, PALE YELLOW SECRETIONS. TX'S GIVEN ORDERED. NO ADVERSE REACTIONS OBSERVED. NO SOB NOTED THROUGHOUT SHIFT. TRACH CARE DONE. Addendum: 08/14/19 at 1736 by YAMIL MARTINEZ RT Amended: Links added.
[2019-08-14 20:02] VITALS: BP 134/92
[2019-08-14] MEDS: ASCORBIC ACID 500 MG TABLET GT SCH (20:44)
[2019-08-14] MEDS: INSULIN GLARGINE, 100 UNIT/ML CARTRIDGE SQ SCH (22:25)
[2019-08-14] MEDS: AMIKACIN 500 MG in IV D5W 100 ML IV SCH (23:58)
[2019-08-15] MEDS: ALBUTEROL FS 2.5 MG/3 ML VIAL.NEB NEB SCH ×4 (01:28→19:18)
[2019-08-15] MEDS: GLUCERNA 1.2 1,000 ML BOTTLE GT PRN ×2 (05:23→22:03)
[2019-08-15] MEDS: OMEPRAZOLE 20 MG CAPSULE.DR GT SCH (05:38)
[2019-08-15] MEDS: METOCLOPRAMIDE HCL 10 MG TABLET GT SCH ×4 (05:38→23:17)
[2019-08-15] MEDS: GABAPENTIN 250 MG/5 ML SOLUTION GT SCH ×3 (05:38→21:41)
[2019-08-15] MEDS: BLOOD SUGAR DIAGNOSTIC 1 EACH STRIP IN SCH ×2 (05:50→17:52)
[2019-08-15] MEDS: INSULIN REGULAR, HUMAN 100 UNIT/ML 3 ML VIAL SQ PRN ×2 (05:50→17:52)
[2019-08-15 06:29] LABS: BASOPHILS # (AUTO) 0.1 /CMM (0.0-0.2); BASOPHILS % (AUTO) 0.8 % (0.0-2.0); EOSINOPHILS % (AUTO) 5.8 % (0.0-6.0); HEMATOCRIT 28 % (33-45); HEMOGLOBIN 9.2 g/dL (11.5-14.8); LYMPHOCYTES # (AUTO) 2.7 /CMM (0.8-4.8); LYMPHOCYTES % (AUTO) 22.3 % (20.0-44.0); MEAN CORPUSCULAR HGB CONC 33 g/dl (31.0-36.0); MEAN CORPUSCULAR VOLUME 93 fL (82-100); MONOCYTES # (AUTO) 1.2 /CMM (0.1-1.30); MONOCYTES % (AUTO) 10.1 % (2.0-12.0); NEUTROPHILS # (AUTO) 7.4 /CMM (1.8-8.9); PLATELET COUNT (AUTO) 389 /CMM (150-450); RED BLOOD CELL COUNT(AUTO) 3.04 MIL/uL (4.0-5.2); WHITE BLOOD COUNT (AUTO) 12.1 K/uL (4.3-11.0)
[2019-08-15 07:03] LABS: BILIRUBIN,TOTAL 0.2 mg/dL (0.2-1.0); CALCIUM, SERUM 9.7 mg/dL (8.5-10.1); CREATININE 3.5 mg/dL (0.6-1.3); MAGNESIUM 2.9 mg/dL (1.8-2.4); PHOSPHORUS 5.2 mg/dL (2.5-4.9); POTASSIUM 4.5 mmol/L (3.5-5.1); TOTAL PROTEIN, SERUM 8.9 g/dL (6.4-8.2)
--- NOTE | 2019-08-15 07:33 | NUR ---
Wheelchair Update: STEPHEN contacted [facility] and spoke to Elizabeth TEL: [phone] who stated that she ran the patient's insurance and it looks like her Medicare will be in effect in September 2019. Elizabeth advised that the process be postponed until September 2019 because if we begin now, we would have to go through the process of billing [employer] but by the time the authorization is approved the patient's primary insurance will be Medicare and the process would have to be re-started. This SW is agreeable to plan and will follow up in September 2019. STEPHEN informed the patient's family and they are agreeable to plan.
[2019-08-15 07:44] VITALS: BP 134/77
[2019-08-15] MEDS: HYDROGEN PEROXIDE 480 ML BOTTLE TP SCH ×2 (08:19→21:00)
[2019-08-15] MEDS: TRILEPTAL GT SCH ×2 (09:05→21:41)
[2019-08-15] MEDS: Z GUARD REMEDY 2 OZ OINT TP SCH ×2 (09:05→21:41)
[2019-08-15] MEDS: VITS A AND D/WHITE PET/LANOLIN 5 GM PACKET TP SCH ×2 (09:05→21:41)
[2019-08-15] MEDS: MULTIVIT W/MINERALS 1 TAB TABLET GT SCH (09:05)
[2019-08-15] MEDS: Z GUARD REMEDY 4 OZ OINT TP SCH ×2 (09:05→21:41)
[2019-08-15] MEDS: ACIDOPHILUS/BULGARICUS 1 EACH TAB.CHEW GT SCH ×2 (09:05→17:52)
[2019-08-15] MEDS: SIMETHICONE SUSP 40 MG/0.6 ML BOTTLE GT SCH ×2 (09:05→21:41)
[2019-08-15] MEDS: DOCUSATE SODIUM LIQ 100 MG/10 ML UDC GT SCH (09:05)
[2019-08-15] MEDS: SENNOSIDES 8.6 MG TABLET GT SCH ×2 (09:05→21:41)
[2019-08-15] MEDS: LEVETIRACETAM SOL (5 ML) 100 MG/ML UDC GT SCH ×2 (09:05→21:41)
--- NOTE | 2019-08-15 13:30 | NUR ---
Seen by NAN Vargas. Relayed lab results to her. No new order.
[2019-08-15] MEDS: EPOETIN ALFA (10,000 UNIT) 10,000 UNIT/ML VIAL SQ SCH (15:19)
[2019-08-15 19:52] VITALS: BP 133/80
[2019-08-15] MEDS: ASCORBIC ACID 500 MG TABLET GT SCH (21:41)
[2019-08-15] MEDS: INSULIN GLARGINE, 100 UNIT/ML CARTRIDGE SQ SCH (21:42)
[2019-08-16] MEDS: ALBUTEROL FS 2.5 MG/3 ML VIAL.NEB NEB SCH ×4 (01:19→19:16)
[2019-08-16] MEDS: OMEPRAZOLE 20 MG CAPSULE.DR GT SCH (05:45)
[2019-08-16] MEDS: METOCLOPRAMIDE HCL 10 MG TABLET GT SCH ×4 (05:45→23:30)
[2019-08-16] MEDS: GABAPENTIN 250 MG/5 ML SOLUTION GT SCH ×3 (05:45→21:20)
[2019-08-16] MEDS: BLOOD SUGAR DIAGNOSTIC 1 EACH STRIP IN SCH ×2 (06:02→17:57)
[2019-08-16] MEDS: INSULIN REGULAR, HUMAN 100 UNIT/ML 3 ML VIAL SQ PRN ×2 (06:03→17:58)
[2019-08-16] MEDS: HYDROGEN PEROXIDE 480 ML BOTTLE TP SCH ×2 (09:00→21:38)
--- NOTE | 2019-08-16 09:00 | NUR ---
Noted that patient has altered LOC, seen and examined by Dr. Felix with new order to do STAT CBC,BMP, ABG, requested. BS- 98, BP- 137/70, HR- 89, afebrile. Nephrostomy noted with bloody output. Resp. even and unlabored. O2 sat. 99%. Will continue to monitor.
[2019-08-16] MEDS: TRILEPTAL GT SCH ×2 (09:03→21:20)
[2019-08-16] MEDS: DOCUSATE SODIUM LIQ 100 MG/10 ML UDC GT SCH (09:03)
[2019-08-16] MEDS: LEVETIRACETAM SOL (5 ML) 100 MG/ML UDC GT SCH ×2 (09:03→21:20)
[2019-08-16] MEDS: SENNOSIDES 8.6 MG TABLET GT SCH ×2 (09:03→21:20)
[2019-08-16] MEDS: VITS A AND D/WHITE PET/LANOLIN 5 GM PACKET TP SCH ×2 (09:03→21:20)
[2019-08-16] MEDS: SIMETHICONE SUSP 40 MG/0.6 ML BOTTLE GT SCH ×2 (09:03→21:20)
[2019-08-16] MEDS: ACIDOPHILUS/BULGARICUS 1 EACH TAB.CHEW GT SCH ×2 (09:03→16:33)
[2019-08-16] MEDS: Z GUARD REMEDY 4 OZ OINT TP SCH ×2 (09:03→21:20)
[2019-08-16] MEDS: Z GUARD REMEDY 2 OZ OINT TP SCH ×2 (09:03→21:20)
[2019-08-16] MEDS: MULTIVIT W/MINERALS 1 TAB TABLET GT SCH (09:03)
--- NOTE | 2019-08-16 09:45 | NUR ---
ABG result relayed to Dr. Felix, no new order given. Resident awake, no s/s of distress. V/S WNL. Left message to sister Beckie. Will continue to monitor.
[2019-08-16 10:00] LABS: ABG BASE EXCESS -1.7 mmol/L; ABG OXYGEN SATURATION 97.1 % (92.0-98.5); ABG PCO2 34.2 mmHg (35.0-45.0); AaDO2 72.7 mmHg; COHb 0.2 % (0.5-1.5); MetHb 0.2 % (0.0-1.5); O2Hb 96.7 % (94.0-97.0); PEEP,BG 5 cm H2O; SITE, ABG Right Radial; VENT MODE, BG AC 16 550 30% +5; VT, ABG 550 mL
[2019-08-16 11:40] VITALS: BP 127/78
[2019-08-16 14:13] LABS: BASOPHILS # (AUTO) 0.1 /CMM (0.0-0.2); EOSINOPHILS % (AUTO) 5.5 % (0.0-6.0); HEMATOCRIT 25 % (33-45); HEMOGLOBIN 8.2 g/dL (11.5-14.8); LYMPHOCYTES # (AUTO) 3.3 /CMM (0.8-4.8); LYMPHOCYTES % (AUTO) 24.5 % (20.0-44.0); MEAN CORPUSCULAR HGB CONC 33 g/dl (31.0-36.0); MEAN CORPUSCULAR VOLUME 94 fL (82-100); MONOCYTES # (AUTO) 1.3 /CMM (0.1-1.30); MONOCYTES % (AUTO) 9.3 % (2.0-12.0); NEUTROPHILS % (AUTO) 59.7 % (43.0-81.0); PLATELET COUNT (AUTO) 410 /CMM (150-450); RED BLOOD CELL COUNT(AUTO) 2.63 MIL/uL (4.0-5.2); WHITE BLOOD COUNT (AUTO) 13.5 K/uL (4.3-11.0)
[2019-08-16 14:23] LABS: CALCIUM, SERUM 10.2 mg/dL (8.5-10.1); CREATININE 3.4 mg/dL (0.6-1.3); POTASSIUM 4.4 mmol/L (3.5-5.1)
--- NOTE | 2019-08-16 16:00 | NUR ---
Relayed CBC and BMP result to Dr. Felix, no new order given. Resident arousable with touch and verbal stimuli. No s/sx of distress. V/S WNL. Will continue to monitor.
--- NOTE | 2019-08-16 18:30 | NUR ---
Beckie called back, gave update about Jay Jay.
--- NOTE | 2019-08-16 19:39 | NUR ---
RT NOTE RECEIVED PT ON VENTILATOR PER CURRENT MD ORDERS. TOLERATING VENT SETTINGS WELL. NO INCREASED WOB OR SOB NOTED. ALARMS AUDIBLE AND ON. VENTILATOR PLUGGED INTO RED OUTLET. BACK UP TRACH AND AMBUBAG BY BEDSIDE. WILL CONTINUE TO MONITOR T/O SHIFT. Addendum: 08/16/19 at 1939 by ALIA TEIXEIRA RT Amended: Links added.
[2019-08-16 20:09] VITALS: BP 120/76
[2019-08-16] MEDS: ASCORBIC ACID 500 MG TABLET GT SCH (21:20)
[2019-08-16] MEDS: INSULIN GLARGINE, 100 UNIT/ML CARTRIDGE SQ SCH (21:21)
[2019-08-16] MEDS: AMIKACIN 500 MG in IV D5W 100 ML IV SCH (23:15)
[2019-08-17] MEDS: ALBUTEROL FS 2.5 MG/3 ML VIAL.NEB NEB SCH ×4 (00:43→19:51)
[2019-08-17] MEDS: OMEPRAZOLE 20 MG CAPSULE.DR GT SCH (05:24)
[2019-08-17] MEDS: GABAPENTIN 250 MG/5 ML SOLUTION GT SCH ×3 (05:24→21:00)
[2019-08-17] MEDS: METOCLOPRAMIDE HCL 10 MG TABLET GT SCH ×3 (05:24→18:53)
[2019-08-17] MEDS: INSULIN REGULAR, HUMAN 100 UNIT/ML 3 ML VIAL SQ PRN ×2 (06:05→18:55)
[2019-08-17] MEDS: BLOOD SUGAR DIAGNOSTIC 1 EACH STRIP IN SCH ×2 (06:05→18:53)
[2019-08-17 07:35] VITALS: BP 130/80
[2019-08-17] MEDS: HYDROGEN PEROXIDE 480 ML BOTTLE TP SCH ×2 (08:14→19:51)
[2019-08-17] MEDS: LEVETIRACETAM SOL (5 ML) 100 MG/ML UDC GT SCH ×2 (09:00→21:00)
[2019-08-17] MEDS: SENNOSIDES 8.6 MG TABLET GT SCH ×2 (09:00→21:00)
[2019-08-17] MEDS: DOCUSATE SODIUM LIQ 100 MG/10 ML UDC GT SCH (09:00)
[2019-08-17] MEDS: MULTIVIT W/MINERALS 1 TAB TABLET GT SCH (09:00)
[2019-08-17] MEDS: Z GUARD REMEDY 4 OZ OINT TP SCH ×2 (09:00→21:00)
[2019-08-17] MEDS: Z GUARD REMEDY 2 OZ OINT TP SCH ×2 (09:00→21:00)
[2019-08-17] MEDS: TRILEPTAL GT SCH ×2 (09:00→21:00)
[2019-08-17] MEDS: ACIDOPHILUS/BULGARICUS 1 EACH TAB.CHEW GT SCH ×2 (09:00→17:00)
[2019-08-17] MEDS: VITS A AND D/WHITE PET/LANOLIN 5 GM PACKET TP SCH ×2 (09:00→21:00)
[2019-08-17] MEDS: SIMETHICONE SUSP 40 MG/0.6 ML BOTTLE GT SCH ×2 (09:00→21:00)
--- NOTE | 2019-08-17 13:00 | NUR ---
RT RECEIVED PT TRACH'D ON [facility] VENT WITH SETTINGS PER MD ORDER. PEN TESTER DONE. VENT PLUGGED INTO RED OUTLET. SPARE TRACH AND AMBU BAG AT HEAD OF BED. VENT ALARMS ON AND WORKING PROPERLY. SUCTIONED SMALL AMOUNTS OF THICK, PALE YELLOW SECRETIONS. TX'S GIVEN ORDERED. NO ADVERSE REACTIONS OBSERVED. NO SIGNS OF DISTRESS NOTED THROUGHOUT SHIFT. TRACH CARE DONE. Addendum: 08/17/19 at 1812 by YAMIL MARTINEZ RT Amended: Links added.
[2019-08-17] MEDS: GLUCERNA 1.2 1,000 ML BOTTLE GT PRN (16:54)
[2019-08-17 20:18] VITALS: BP 125/71
[2019-08-17] MEDS: ASCORBIC ACID 500 MG TABLET GT SCH (21:00)
[2019-08-17] MEDS: INSULIN GLARGINE, 100 UNIT/ML CARTRIDGE SQ SCH (22:00)
[2019-08-18] MEDS: METOCLOPRAMIDE HCL 10 MG TABLET GT SCH ×5 (00:10→23:24)
[2019-08-18] MEDS: ALBUTEROL FS 2.5 MG/3 ML VIAL.NEB NEB SCH ×4 (00:44→19:30)
[2019-08-18] MEDS: OMEPRAZOLE 20 MG CAPSULE.DR GT SCH (05:12)
[2019-08-18] MEDS: GABAPENTIN 250 MG/5 ML SOLUTION GT SCH ×3 (05:12→20:40)
[2019-08-18] MEDS: BLOOD SUGAR DIAGNOSTIC 1 EACH STRIP IN SCH ×2 (06:05→17:22)
[2019-08-18] MEDS: INSULIN REGULAR, HUMAN 100 UNIT/ML 3 ML VIAL SQ PRN ×2 (06:15→17:30)
[2019-08-18 08:05] VITALS: BP 138/78
[2019-08-18] MEDS: HYDROGEN PEROXIDE 480 ML BOTTLE TP SCH ×2 (08:28→21:00)
[2019-08-18] MEDS: SIMETHICONE SUSP 40 MG/0.6 ML BOTTLE GT SCH ×2 (09:54→20:40)
[2019-08-18] MEDS: TRILEPTAL GT SCH ×2 (09:54→20:40)
[2019-08-18] MEDS: MULTIVIT W/MINERALS 1 TAB TABLET GT SCH (09:54)
[2019-08-18] MEDS: DOCUSATE SODIUM LIQ 100 MG/10 ML UDC GT SCH (09:54)
[2019-08-18] MEDS: ACIDOPHILUS/BULGARICUS 1 EACH TAB.CHEW GT SCH ×2 (09:54→17:22)
[2019-08-18] MEDS: LEVETIRACETAM SOL (5 ML) 100 MG/ML UDC GT SCH ×2 (09:54→20:40)
[2019-08-18] MEDS: SENNOSIDES 8.6 MG TABLET GT SCH ×2 (09:54→20:40)
[2019-08-18] MEDS: Z GUARD REMEDY 4 OZ OINT TP SCH (09:55)
[2019-08-18] MEDS: VITS A AND D/WHITE PET/LANOLIN 5 GM PACKET TP SCH ×2 (09:55→20:40)
[2019-08-18] MEDS: Z GUARD REMEDY 2 OZ OINT TP SCH ×2 (09:55→20:40)
[2019-08-18] MEDS: GLUCERNA 1.2 1,000 ML BOTTLE GT PRN (12:36)
--- NOTE | 2019-08-18 16:00 | NUR ---
RT RECEIVED PATIENT TRACH'D ON [facility] VENT WITH SETTINGS PER MD ORDER. FINANCIAL SYSTEMS MANAGER DONE. VENT PLUGGED INTO RED OUTLET. SPARE TRACH AND AMBU BAG AT HEAD OF BED. VENT ALARMS ON AND WORKING PROPERLY. SUCTIONED MOD AMOUNTS OF THICK, PALE YELLOW SECRETIONS. BREATHING TX'S GIVEN ORDERED. NO ADVERSE REACTIONS OBSERVED. NO SOB NOTED THROUGHOUT SHIFT. TRACH CARE DONE. Addendum: 08/18/19 at 1805 by YAMIL MARTINEZ RT Amended: Links added.
[2019-08-18 19:54] VITALS: BP 128/70
--- NOTE | 2019-08-18 20:25 | NUR ---
Seen and examined by NAN Vargas no new orders.
[2019-08-18] MEDS: ASCORBIC ACID 500 MG TABLET GT SCH (20:40)
[2019-08-18] MEDS: INSULIN GLARGINE, 100 UNIT/ML CARTRIDGE SQ SCH (21:17)
[2019-08-19] MEDS: ALBUTEROL FS 2.5 MG/3 ML VIAL.NEB NEB SCH ×4 (01:22→19:40)
[2019-08-19] MEDS: GLUCERNA 1.2 1,000 ML BOTTLE GT PRN ×2 (05:06→20:11)
[2019-08-19] MEDS: METOCLOPRAMIDE HCL 10 MG TABLET GT SCH ×3 (05:06→17:15)
[2019-08-19] MEDS: OMEPRAZOLE 20 MG CAPSULE.DR GT SCH (05:06)
[2019-08-19] MEDS: MAGNESIUM HYDROXIDE 30 ML UDC GT PRN (05:06)
[2019-08-19] MEDS: GABAPENTIN 250 MG/5 ML SOLUTION GT SCH ×3 (05:06→21:00)
[2019-08-19] MEDS: INSULIN REGULAR, HUMAN 100 UNIT/ML 3 ML VIAL SQ PRN ×2 (05:19→17:25)
[2019-08-19] MEDS: BLOOD SUGAR DIAGNOSTIC 1 EACH STRIP IN SCH ×2 (05:19→17:15)
[2019-08-19 08:04] VITALS: BP 133/76
[2019-08-19] MEDS: HYDROGEN PEROXIDE 480 ML BOTTLE TP SCH ×2 (08:05→20:53)
--- NOTE | 2019-08-19 08:42 | NUR ---
PT RCVD TRACH'D ON MECHANICAL VENT WITH CHARTED SETTINGS. PT APRIL TX WELL. SX DONE. PT TRACH IS PATENT AND SECURE. VENT ALARMS ARE ON, SET, AND AUDIBLE. VENT PLUGGED INTO RED OUTLET. AMBU BAG AT BEDSIDE. NO SOB NOTED. Addendum: 08/19/19 at 0843 by MICH AVILA RT Amended: Links added.
[2019-08-19] MEDS: LEVETIRACETAM SOL (5 ML) 100 MG/ML UDC GT SCH ×2 (09:31→21:00)
[2019-08-19] MEDS: SIMETHICONE SUSP 40 MG/0.6 ML BOTTLE GT SCH ×2 (09:31→21:00)
[2019-08-19] MEDS: DOCUSATE SODIUM LIQ 100 MG/10 ML UDC GT SCH (09:31)
[2019-08-19] MEDS: ACIDOPHILUS/BULGARICUS 1 EACH TAB.CHEW GT SCH ×2 (09:31→17:15)
[2019-08-19] MEDS: Z GUARD REMEDY 2 OZ OINT TP SCH ×2 (09:32→21:00)
[2019-08-19] MEDS: TRILEPTAL GT SCH ×2 (09:32→21:00)
[2019-08-19] MEDS: MULTIVIT W/MINERALS 1 TAB TABLET GT SCH (09:32)
[2019-08-19] MEDS: VITS A AND D/WHITE PET/LANOLIN 5 GM PACKET TP SCH ×2 (09:32→21:00)
[2019-08-19] MEDS: SENNOSIDES 8.6 MG TABLET GT SCH ×2 (09:32→21:00)
[2019-08-19 19:49] VITALS: BP 124/80
--- NOTE | 2019-08-19 19:51 | NUR ---
RT NOTE RECEIVED PT ON VENTILATOR PER CURRENT MD ORDERS. TOLERATING VENT SETTINGS WELL. NO INCREASED WOB OR SOB NOTED. ALARMS AUDIBLE AND ON. VENTILATOR PLUGGED INTO RED OUTLET. BACK UP TRACH AND AMBUBAG BY BEDSIDE. WILL CONTINUE TO MONITOR T/O SHIFT. Addendum: 08/19/19 at 1951 by ALIA TEIXEIRA RT Amended: Links added.
[2019-08-19] MEDS: ASCORBIC ACID 500 MG TABLET GT SCH (21:00)
[2019-08-19] MEDS: INSULIN GLARGINE, 100 UNIT/ML CARTRIDGE SQ SCH (22:03)
--- NOTE | 2019-08-19 22:05 | NUR ---
KELVIN MCGHEE, NEXT OF KIN OF PATIENT NOTIFIED OF NEW POLICY REGARDING VISITATION, FAMILY MEMBER VERBALIZED UNDERSTANDING, DHRUV MCGHEE LIVES IN [place], PER SISTER.
[2019-08-20] MEDS: METOCLOPRAMIDE HCL 10 MG TABLET GT SCH ×5 (00:28→23:14)
[2019-08-20] MEDS: ALBUTEROL FS 2.5 MG/3 ML VIAL.NEB NEB SCH ×4 (00:57→19:08)
[2019-08-20] MEDS: GABAPENTIN 250 MG/5 ML SOLUTION GT SCH ×3 (05:05→21:00)
[2019-08-20] MEDS: OMEPRAZOLE 20 MG CAPSULE.DR GT SCH (05:46)
[2019-08-20] MEDS: BLOOD SUGAR DIAGNOSTIC 1 EACH STRIP IN SCH ×2 (05:46→18:11)
[2019-08-20 06:56] LABS: BASOPHILS # (AUTO) 0.1 /CMM (0.0-0.2); BASOPHILS % (AUTO) 0.4 % (0.0-2.0); HEMATOCRIT 28 % (33-45); HEMOGLOBIN 9.3 g/dL (11.5-14.8); LYMPHOCYTES % (AUTO) 16.9 % (20.0-44.0); MEAN CORPUSCULAR HGB CONC 33 g/dl (31.0-36.0); MEAN CORPUSCULAR VOLUME 94 fL (82-100); MONOCYTES # (AUTO) 0.9 /CMM (0.1-1.30); MONOCYTES % (AUTO) 7.5 % (2.0-12.0); NEUTROPHILS # (AUTO) 8.4 /CMM (1.8-8.9); NEUTROPHILS % (AUTO) 71.2 % (43.0-81.0); PLATELET COUNT (AUTO) 401 /CMM (150-450); RED BLOOD CELL COUNT(AUTO) 2.96 MIL/uL (4.0-5.2); WHITE BLOOD COUNT (AUTO) 11.8 K/uL (4.3-11.0)
[2019-08-20 07:19] LABS: CALCIUM, SERUM 10.9 mg/dL (8.5-10.1); CREATININE 3.5 mg/dL (0.6-1.3); MAGNESIUM 3.1 mg/dL (1.8-2.4); PHOSPHORUS 6.1 mg/dL (2.5-4.9); POTASSIUM 4.7 mmol/L (3.5-5.1)
[2019-08-20 07:43] VITALS: BP 108/79
--- NOTE | 2019-08-20 09:02 | NUR ---
pt received on current settings. Airway is patent and secure with no signs of respiratory distress. Tx was given with no adverse reactions. Vent alarms are audible and vent is plugged into red outlet. Will continue to monitor pt
[2019-08-20] MEDS: HYDROGEN PEROXIDE 480 ML BOTTLE TP SCH ×2 (09:06→20:51)
[2019-08-20] MEDS: Z GUARD REMEDY 2 OZ OINT TP SCH ×2 (09:30→21:00)
[2019-08-20] MEDS: VITS A AND D/WHITE PET/LANOLIN 5 GM PACKET TP SCH ×2 (09:30→21:00)
[2019-08-20] MEDS: SIMETHICONE SUSP 40 MG/0.6 ML BOTTLE GT SCH ×2 (09:58→21:00)
[2019-08-20] MEDS: DOCUSATE SODIUM LIQ 100 MG/10 ML UDC GT SCH (09:58)
[2019-08-20] MEDS: LEVETIRACETAM SOL (5 ML) 100 MG/ML UDC GT SCH ×2 (09:58→21:00)
[2019-08-20] MEDS: MULTIVIT W/MINERALS 1 TAB TABLET GT SCH (09:58)
[2019-08-20] MEDS: ACIDOPHILUS/BULGARICUS 1 EACH TAB.CHEW GT SCH ×2 (09:58→17:17)
[2019-08-20] MEDS: SENNOSIDES 8.6 MG TABLET GT SCH ×2 (09:58→21:00)
[2019-08-20] MEDS: TRILEPTAL GT SCH ×2 (09:58→21:00)
--- NOTE | 2019-08-20 12:40 | NUR ---
Spoke with Dr. Kumar and reported that Dr. Montgomery ordered CBC and BMP for today, BUN 55 and Creat 3.5, he said he will review, NNO given at this time.
--- NOTE | 2019-08-20 19:29 | NUR ---
RT NOTE RECEIVED PT ON VENTILATOR PER CURRENT MD ORDERS. TOLERATING VENT SETTINGS WELL. NO INCREASED WOB OR SOB NOTED. ALARMS AUDIBLE AND ON. VENTILATOR PLUGGED INTO RED OUTLET. BACK UP TRACH AND AMBUBAG BY BEDSIDE. WILL CONTINUE TO MONITOR T/O SHIFT. Addendum: 08/20/19 at 1929 by ALIA TEIXEIRA RT Amended: Links added.
[2019-08-20 20:17] VITALS: BP 129/77
[2019-08-20] MEDS: ASCORBIC ACID 500 MG TABLET GT SCH (21:00)
[2019-08-20] MEDS: INSULIN GLARGINE, 100 UNIT/ML CARTRIDGE SQ SCH (22:45)
[2019-08-21] MEDS: ALBUTEROL FS 2.5 MG/3 ML VIAL.NEB NEB SCH ×4 (00:36→19:42)
[2019-08-21] MEDS: OMEPRAZOLE 20 MG CAPSULE.DR GT SCH (05:36)
[2019-08-21] MEDS: METOCLOPRAMIDE HCL 10 MG TABLET GT SCH ×3 (05:36→18:38)
[2019-08-21] MEDS: GABAPENTIN 250 MG/5 ML SOLUTION GT SCH ×3 (05:36→21:13)
[2019-08-21] MEDS: BLOOD SUGAR DIAGNOSTIC 1 EACH STRIP IN SCH ×2 (05:36→18:38)
[2019-08-21 07:50] VITALS: BP 124/62
[2019-08-21] MEDS: LEVETIRACETAM SOL (5 ML) 100 MG/ML UDC GT SCH ×2 (09:00→21:10)
[2019-08-21] MEDS: SIMETHICONE SUSP 40 MG/0.6 ML BOTTLE GT SCH ×2 (09:00→21:11)
[2019-08-21] MEDS: SENNOSIDES 8.6 MG TABLET GT SCH ×2 (09:00→21:15)
[2019-08-21] MEDS: ACIDOPHILUS/BULGARICUS 1 EACH TAB.CHEW GT SCH ×2 (09:00→17:00)
[2019-08-21] MEDS: TRILEPTAL GT SCH ×2 (09:00→21:13)
[2019-08-21] MEDS: VITS A AND D/WHITE PET/LANOLIN 5 GM PACKET TP SCH ×2 (09:00→21:15)
[2019-08-21] MEDS: MULTIVIT W/MINERALS 1 TAB TABLET GT SCH (09:00)
[2019-08-21] MEDS: DOCUSATE SODIUM LIQ 100 MG/10 ML UDC GT SCH (09:00)
[2019-08-21] MEDS: Z GUARD REMEDY 2 OZ OINT TP SCH ×2 (09:00→21:15)
[2019-08-21] MEDS: HYDROGEN PEROXIDE 480 ML BOTTLE TP SCH ×2 (09:00→21:12)
[2019-08-21] MEDS: GLUCERNA 1.2 1,000 ML BOTTLE GT PRN (15:30)
[2019-08-21] MEDS: INSULIN REGULAR, HUMAN 100 UNIT/ML 3 ML VIAL SQ PRN (18:39)
[2019-08-21 20:32] VITALS: BP 135/82
[2019-08-21] MEDS: ASCORBIC ACID 500 MG TABLET GT SCH (21:15)
[2019-08-21] MEDS: INSULIN GLARGINE, 100 UNIT/ML CARTRIDGE SQ SCH (21:46)
[2019-08-22] MEDS: METOCLOPRAMIDE HCL 10 MG TABLET GT SCH ×4 (00:45→17:21)
[2019-08-22] MEDS: ALBUTEROL FS 2.5 MG/3 ML VIAL.NEB NEB SCH ×4 (01:26→13:32)
[2019-08-22] MEDS: GABAPENTIN 250 MG/5 ML SOLUTION GT SCH ×3 (05:00→21:07)
[2019-08-22] MEDS: OMEPRAZOLE 20 MG CAPSULE.DR GT SCH (06:11)
[2019-08-22] MEDS: INSULIN REGULAR, HUMAN 100 UNIT/ML 3 ML VIAL SQ PRN ×2 (06:12→18:35)
[2019-08-22] MEDS: BLOOD SUGAR DIAGNOSTIC 1 EACH STRIP IN SCH ×2 (06:12→18:35)
[2019-08-22 08:20] VITALS: BP 122/54
--- NOTE | 2019-08-22 08:58 | NUR ---
RT NOTE PT RCVD TRACH'D ON MECHANICAL VENT WITH CHARTED SETTINGS. VENT PLUGGED INTO RED OUTLET. AMBU BAG AT BEDSIDE. NO SOB NOTED AT THIS TIME. WILL CONTINUE TO MONITOR. Addendum: 08/22/19 at 0905 by MARCO FRANCOIS RT Amended: Links added.
[2019-08-22] MEDS: LEVETIRACETAM SOL (5 ML) 100 MG/ML UDC GT SCH ×2 (09:00→21:06)
[2019-08-22] MEDS: ACIDOPHILUS/BULGARICUS 1 EACH TAB.CHEW GT SCH ×2 (09:00→17:21)
[2019-08-22] MEDS: MULTIVIT W/MINERALS 1 TAB TABLET GT SCH (09:00)
[2019-08-22] MEDS: Z GUARD REMEDY 2 OZ OINT TP SCH ×2 (09:00→21:12)
[2019-08-22] MEDS: SENNOSIDES 8.6 MG TABLET GT SCH ×2 (09:00→21:12)
[2019-08-22] MEDS: VITS A AND D/WHITE PET/LANOLIN 5 GM PACKET TP SCH ×2 (09:00→21:12)
[2019-08-22] MEDS: HYDROGEN PEROXIDE 480 ML BOTTLE TP SCH ×2 (09:00→21:00)
[2019-08-22] MEDS: SIMETHICONE SUSP 40 MG/0.6 ML BOTTLE GT SCH ×2 (09:00→21:07)
[2019-08-22] MEDS: TRILEPTAL GT SCH ×2 (09:00→21:11)
[2019-08-22] MEDS: DOCUSATE SODIUM LIQ 100 MG/10 ML UDC GT SCH (09:00)
[2019-08-22] MEDS: GLUCERNA 1.2 1,000 ML BOTTLE GT PRN (14:15)
[2019-08-22] MEDS: EPOETIN ALFA (10,000 UNIT) 10,000 UNIT/ML VIAL SQ SCH (14:38)
--- NOTE | 2019-08-22 16:22 | NUR ---
STEPHEN completed the SS portion of MDS assessment. The patients sister, Beckie Chu [phone] is the patients conservator and is very involved, supportive and visits often. The patient is on vent with trach, full code and non-communicative with G-tube feeding: TF Glucerna 1.2 at 65ml/hr. x 18 hr. Provides:(1170ml/day, 1404 calories, 70 gram protein, 942ml free water). The patients last dental exam and cleaning by Dr. Elliott was on 02/05/2020. The patients last optometry appointment by Dr. Escalante was on 07/04/2019. The patients last podiatry visit by Dr. Lozano was on 08/18/2019. Per Beckie, she has no discharge plans for the patient and would like the pt. to remain in this facility fci.
[2019-08-22 20:42] VITALS: BP 131/81
[2019-08-22] MEDS: ASCORBIC ACID 500 MG TABLET GT SCH (21:12)
[2019-08-22] MEDS: INSULIN GLARGINE, 100 UNIT/ML CARTRIDGE SQ SCH (21:48)
[2019-08-23] MEDS: METOCLOPRAMIDE HCL 10 MG TABLET GT SCH ×4 (00:35→18:06)
[2019-08-23] MEDS: ALBUTEROL FS 2.5 MG/3 ML VIAL.NEB NEB SCH ×4 (02:15→19:26)
[2019-08-23] MEDS: GABAPENTIN 250 MG/5 ML SOLUTION GT SCH ×3 (05:50→21:11)
[2019-08-23] MEDS: BLOOD SUGAR DIAGNOSTIC 1 EACH STRIP IN SCH ×2 (05:51→18:06)
[2019-08-23] MEDS: INSULIN REGULAR, HUMAN 100 UNIT/ML 3 ML VIAL SQ PRN ×2 (05:51→18:06)
[2019-08-23] MEDS: OMEPRAZOLE 20 MG CAPSULE.DR GT SCH (05:51)
[2019-08-23 07:14] LABS: BASOPHILS # (AUTO) 0.1 /CMM (0.0-0.2); BASOPHILS % (AUTO) 0.3 % (0.0-2.0); EOSINOPHILS % (AUTO) 2.7 % (0.0-6.0); HEMATOCRIT 29 % (33-45); HEMOGLOBIN 9.4 g/dL (11.5-14.8); LYMPHOCYTES # (AUTO) 1.8 /CMM (0.8-4.8); MEAN CORPUSCULAR HGB CONC 33 g/dl (31.0-36.0); MEAN CORPUSCULAR VOLUME 96 fL (82-100); MONOCYTES # (AUTO) 1.5 /CMM (0.1-1.30); MONOCYTES % (AUTO) 9.6 % (2.0-12.0); NEUTROPHILS # (AUTO) 11.5 /CMM (1.8-8.9); NEUTROPHILS % (AUTO) 75.4 % (43.0-81.0); PLATELET COUNT (AUTO) 411 /CMM (150-450); RED BLOOD CELL COUNT(AUTO) 3.01 MIL/uL (4.0-5.2); WHITE BLOOD COUNT (AUTO) 15.2 K/uL (4.3-11.0)
[2019-08-23 08:04] LABS: ALBUMIN 2.4 g/dL (3.4-5.0); BILIRUBIN,TOTAL 0.2 mg/dL (0.2-1.0); CALCIUM, SERUM 10.7 mg/dL (8.5-10.1); CREATININE 3.7 mg/dL (0.6-1.3); PHOSPHORUS 6.4 mg/dL (2.5-4.9); POTASSIUM 4.8 mmol/L (3.5-5.1); TOTAL PROTEIN, SERUM 10.5 g/dL (6.4-8.2)
[2019-08-23 08:14] VITALS: BP 110/59
[2019-08-23] MEDS: MULTIVIT W/MINERALS 1 TAB TABLET GT SCH (09:00)
[2019-08-23] MEDS: SENNOSIDES 8.6 MG TABLET GT SCH ×2 (09:00→21:13)
[2019-08-23] MEDS: LEVETIRACETAM SOL (5 ML) 100 MG/ML UDC GT SCH ×2 (09:00→21:10)
[2019-08-23] MEDS: SIMETHICONE SUSP 40 MG/0.6 ML BOTTLE GT SCH ×2 (09:00→21:10)
[2019-08-23] MEDS: Z GUARD REMEDY 2 OZ OINT TP SCH ×2 (09:00→21:13)
[2019-08-23] MEDS: TRILEPTAL GT SCH ×2 (09:00→21:12)
[2019-08-23] MEDS: VITS A AND D/WHITE PET/LANOLIN 5 GM PACKET TP SCH ×2 (09:00→21:13)
[2019-08-23] MEDS: HYDROGEN PEROXIDE 480 ML BOTTLE TP SCH ×2 (09:00→21:00)
[2019-08-23] MEDS: DOCUSATE SODIUM LIQ 100 MG/10 ML UDC GT SCH (09:00)
[2019-08-23] MEDS: ACIDOPHILUS/BULGARICUS 1 EACH TAB.CHEW GT SCH ×2 (09:00→16:56)
--- NOTE | 2019-08-23 09:56 | NUR ---
Pt received on current settings. Airway is patent and secure with no signs of respiratory distress. Tx given with no adverse reactions. Vent plugged into red outlet with alarms on and audible. Suction pt as needed. Addendum: 08/23/19 at 0957 by KEVIN ZARAGOZA RT Amended: Links added.
--- NOTE | 2019-08-23 10:38 | NUR ---
Relayed lab results to Dr Kumar. He said he will take care of it.
[2019-08-23] MEDS: GLUCERNA 1.2 1,000 ML BOTTLE GT PRN (10:53)
--- NOTE | 2019-08-23 13:27 | NUR ---
FAMILY CHECK-IN: STEPHEN called the patient's conservator, Beckie Chu to check in. Per Beckie, although these are worrisome times, she is "staying positive and staying busy working from home". Per Beckie, she is happy she is able to get updates regarding her patient's condition and is "glad" that visitation restriction have been implemented to keep sub-acute patients safe. STEPHEN reassured the family that the patient is receiving adequate care and they will be updated with of any changes in the patient's condition or changes in the visitation restrictions. Beckie rogers to plan.
[2019-08-23 20:42] VITALS: BP 113/76
[2019-08-23] MEDS: ASCORBIC ACID 500 MG TABLET GT SCH (21:13)
[2019-08-23] MEDS: INSULIN GLARGINE, 100 UNIT/ML CARTRIDGE SQ SCH (21:57)
[2019-08-24] MEDS: METOCLOPRAMIDE HCL 10 MG TABLET GT SCH ×5 (00:41→23:31)
[2019-08-24] MEDS: ALBUTEROL FS 2.5 MG/3 ML VIAL.NEB NEB SCH ×4 (01:56→19:39)
[2019-08-24] MEDS: GABAPENTIN 250 MG/5 ML SOLUTION GT SCH ×3 (05:42→21:38)
[2019-08-24] MEDS: GLUCERNA 1.2 1,000 ML BOTTLE GT PRN ×2 (05:42→23:51)
[2019-08-24] MEDS: INSULIN REGULAR, HUMAN 100 UNIT/ML 3 ML VIAL SQ PRN ×2 (05:46→18:02)
[2019-08-24] MEDS: OMEPRAZOLE 20 MG CAPSULE.DR GT SCH (05:46)
[2019-08-24] MEDS: BLOOD SUGAR DIAGNOSTIC 1 EACH STRIP IN SCH ×2 (05:46→17:51)
[2019-08-24 07:37] VITALS: BP 127/67
[2019-08-24 07:40] LABS: CALCIUM, SERUM 10.7 mg/dL (8.5-10.1); CREATININE 3.8 mg/dL (0.6-1.3); MAGNESIUM 3.1 mg/dL (1.8-2.4); PHOSPHORUS 6.2 mg/dL (2.5-4.9); POTASSIUM 4.6 mmol/L (3.5-5.1)
[2019-08-24] MEDS: DOCUSATE SODIUM LIQ 100 MG/10 ML UDC GT SCH (09:00)
[2019-08-24] MEDS: SIMETHICONE SUSP 40 MG/0.6 ML BOTTLE GT SCH ×2 (09:00→21:37)
[2019-08-24] MEDS: HYDROGEN PEROXIDE 480 ML BOTTLE TP SCH ×2 (09:00→19:39)
[2019-08-24] MEDS: LEVETIRACETAM SOL (5 ML) 100 MG/ML UDC GT SCH ×2 (09:00→21:37)
[2019-08-24] MEDS: ACIDOPHILUS/BULGARICUS 1 EACH TAB.CHEW GT SCH ×2 (09:00→17:51)
[2019-08-24] MEDS: SENNOSIDES 8.6 MG TABLET GT SCH ×2 (09:00→21:39)
[2019-08-24] MEDS: TRILEPTAL GT SCH ×2 (09:00→21:38)
[2019-08-24] MEDS: MULTIVIT W/MINERALS 1 TAB TABLET GT SCH (09:00)
[2019-08-24] MEDS: VITS A AND D/WHITE PET/LANOLIN 5 GM PACKET TP SCH ×2 (09:00→21:40)
[2019-08-24] MEDS: Z GUARD REMEDY 2 OZ OINT TP SCH ×2 (09:00→21:39)
--- NOTE | 2019-08-24 11:18 | NUR ---
Received an order from Dr. Kumar to start patient with IVF NS at 75 cc/hr. for hydration and due to hypercalcemia. MD also ordered labs in AM. Informed Beckie (sister) of new order including result of CBC yesterday with WBC of 15.2. Patient has been asymptomatic, no temperature. Informed Beckie that patient has a midline in the L upper arm but claims that she has not been informed of midline insertion, informed sister that midline was inserted when patient was on ATB started on 07/27/19.
[2019-08-24] MEDS: IV NS 0.9% 1,000 ML IV PRN (12:40)
[2019-08-24 20:34] VITALS: BP 126/72
[2019-08-24] MEDS: ASCORBIC ACID 500 MG TABLET GT SCH (21:39)
[2019-08-24] MEDS: INSULIN GLARGINE, 100 UNIT/ML CARTRIDGE SQ SCH (21:44)
[2019-08-25] MEDS: ALBUTEROL FS 2.5 MG/3 ML VIAL.NEB NEB SCH ×4 (01:35→20:22)
[2019-08-25] MEDS: IV NS 0.9% 1,000 ML IV PRN ×2 (03:07→14:38)
--- NOTE | 2019-08-25 04:58 | NUR ---
Patient noted with seizures,lip,eyes and right twitching for 30 seconds,no distress noted. Ativan 1 mg given via gt for seizures ,will continue to monitor.
[2019-08-25] MEDS: BLOOD SUGAR DIAGNOSTIC 1 EACH STRIP IN SCH ×2 (05:59→18:32)
[2019-08-25] MEDS: METOCLOPRAMIDE HCL 10 MG TABLET GT SCH ×4 (05:59→23:29)
[2019-08-25] MEDS: GABAPENTIN 250 MG/5 ML SOLUTION GT SCH ×3 (05:59→21:34)
[2019-08-25] MEDS: OMEPRAZOLE 20 MG CAPSULE.DR GT SCH (05:59)
[2019-08-25] MEDS: INSULIN REGULAR, HUMAN 100 UNIT/ML 3 ML VIAL SQ PRN ×2 (06:00→18:34)
[2019-08-25 06:57] LABS: BASOPHILS # (AUTO) 0.1 /CMM (0.0-0.2); BASOPHILS % (AUTO) 0.5 % (0.0-2.0); EOSINOPHILS % (AUTO) 1.5 % (0.0-6.0); HEMATOCRIT 25 % (33-45); HEMOGLOBIN 8.4 g/dL (11.5-14.8); LYMPHOCYTES # (AUTO) 1.6 /CMM (0.8-4.8); LYMPHOCYTES % (AUTO) 11.9 % (20.0-44.0); MEAN CORPUSCULAR HGB CONC 33 g/dl (31.0-36.0); MEAN CORPUSCULAR VOLUME 94 fL (82-100); MONOCYTES # (AUTO) 1.7 /CMM (0.1-1.30); MONOCYTES % (AUTO) 13.2 % (2.0-12.0); NEUTROPHILS # (AUTO) 9.6 /CMM (1.8-8.9); NEUTROPHILS % (AUTO) 72.9 % (43.0-81.0); PLATELET COUNT (AUTO) 337 /CMM (150-450); WHITE BLOOD COUNT (AUTO) 13.2 K/uL (4.3-11.0)
[2019-08-25 07:01] LABS: ALBUMIN 2.1 g/dL (3.4-5.0); BILIRUBIN,TOTAL 0.3 mg/dL (0.2-1.0); CALCIUM, SERUM 10.2 mg/dL (8.5-10.1); POTASSIUM 4.5 mmol/L (3.5-5.1)
[2019-08-25 08:02] VITALS: BP 105/51
[2019-08-25] MEDS: TRILEPTAL GT SCH ×2 (09:00→21:34)
[2019-08-25] MEDS: SIMETHICONE SUSP 40 MG/0.6 ML BOTTLE GT SCH ×2 (09:00→21:33)
[2019-08-25] MEDS: DOCUSATE SODIUM LIQ 100 MG/10 ML UDC GT SCH (09:00)
[2019-08-25] MEDS: VITS A AND D/WHITE PET/LANOLIN 5 GM PACKET TP SCH ×2 (09:00→21:35)
[2019-08-25] MEDS: Z GUARD REMEDY 2 OZ OINT TP SCH ×2 (09:00→21:35)
[2019-08-25] MEDS: LEVETIRACETAM SOL (5 ML) 100 MG/ML UDC GT SCH ×2 (09:00→21:33)
[2019-08-25] MEDS: MULTIVIT W/MINERALS 1 TAB TABLET GT SCH (09:00)
[2019-08-25] MEDS: ACIDOPHILUS/BULGARICUS 1 EACH TAB.CHEW GT SCH ×2 (09:00→17:00)
[2019-08-25] MEDS: SENNOSIDES 8.6 MG TABLET GT SCH ×2 (09:00→21:34)
[2019-08-25] MEDS: HYDROGEN PEROXIDE 480 ML BOTTLE TP SCH ×2 (09:31→21:00)
--- NOTE | 2019-08-25 09:40 | NUR ---
Notified Dr Luis pt had a seizure early this morning, WBC 13.2, afebrile. Received order to check Trileptal and Keppra levels. Notified Beckie.
--- NOTE | 2019-08-25 11:00 | NUR ---
Relayed lab results to Dr Kumar. No new order.
[2019-08-25] MEDS: GLUCERNA 1.2 1,000 ML BOTTLE GT PRN (18:34)
[2019-08-25 19:43] VITALS: BP 145/73
[2019-08-25] MEDS: ASCORBIC ACID 500 MG TABLET GT SCH (21:34)
[2019-08-25] MEDS: INSULIN GLARGINE, 100 UNIT/ML CARTRIDGE SQ SCH (21:37)
[2019-08-26] MEDS: ALBUTEROL FS 2.5 MG/3 ML VIAL.NEB NEB SCH ×4 (00:53→20:06)
[2019-08-26] MEDS: IV NS 0.9% 1,000 ML IV PRN ×2 (03:04→18:51)
[2019-08-26] MEDS: METOCLOPRAMIDE HCL 10 MG TABLET GT SCH ×4 (05:12→23:46)
[2019-08-26] MEDS: GABAPENTIN 250 MG/5 ML SOLUTION GT SCH ×3 (05:12→21:45)
[2019-08-26] MEDS: OMEPRAZOLE 20 MG CAPSULE.DR GT SCH (05:12)
[2019-08-26] MEDS: BLOOD SUGAR DIAGNOSTIC 1 EACH STRIP IN SCH ×2 (05:37→18:19)
[2019-08-26 07:34] VITALS: BP 102/68
[2019-08-26] MEDS: HYDROGEN PEROXIDE 480 ML BOTTLE TP SCH ×2 (08:43→21:31)
--- NOTE | 2019-08-26 08:54 | NUR ---
Pt received on current settings. No signs of respiratory distress noted. Airway is patent and secure. Tx given with no adverse reaction. Vent is plugged into the red outlet with alarms on and audible. Suction as needed. Will continue to monitor pt. Addendum: 08/26/19 at 0855 by KEVIN ZARAGOZA RT Amended: Links added.
[2019-08-26] MEDS: DOCUSATE SODIUM LIQ 100 MG/10 ML UDC GT SCH (09:00)
[2019-08-26] MEDS: ACIDOPHILUS/BULGARICUS 1 EACH TAB.CHEW GT SCH ×2 (09:00→17:18)
[2019-08-26] MEDS: TRILEPTAL GT SCH ×2 (09:00→21:45)
[2019-08-26] MEDS: SENNOSIDES 8.6 MG TABLET GT SCH ×2 (09:00→21:45)
[2019-08-26] MEDS: LEVETIRACETAM SOL (5 ML) 100 MG/ML UDC GT SCH ×2 (09:00→21:45)
[2019-08-26] MEDS: MULTIVIT W/MINERALS 1 TAB TABLET GT SCH (09:00)
[2019-08-26] MEDS: SIMETHICONE SUSP 40 MG/0.6 ML BOTTLE GT SCH ×2 (09:00→21:45)
[2019-08-26] MEDS: Z GUARD REMEDY 2 OZ OINT TP SCH ×2 (09:00→21:46)
[2019-08-26] MEDS: VITS A AND D/WHITE PET/LANOLIN 5 GM PACKET TP SCH ×2 (09:00→21:46)
--- NOTE | 2019-08-26 10:40 | NUR ---
Noted an order in [facility] from Dr. Kumar for CBC, CMP, Mg and Phos in AM including US of the kidney.
[2019-08-26] MEDS: GLUCERNA 1.2 1,000 ML BOTTLE GT PRN (17:29)
--- NOTE | 2019-08-26 17:45 | NUR ---
Left a message to Dr. Kumar regarding result of kidney ultrasound. Resident's nephrostomy tube and Bourgeois catheter draining well with 300 ml & 900 ml respectively. Nephrostomy tube still with hematuria. Resident awake and responsive, no episode of seizure.
--- NOTE | 2019-08-26 20:06 | NUR ---
RECEIVED TRACH PATIENT ON MECH VENT WITH NOTED SETTINGS PER MD ORDERS. Q6 BREATHING TX TREATMENT GIVEN AT THIS TIME WITH NO ADVERSE REACTION NOTED. TRACH CARE DONE. TRACH IS PATENT AND SECURED. SX DONE PRN. ALARMS ARE ON AND AUDIBLE. VENT IS PLUGGED INTO RED OUTLET WITH AMBU BAG AT BEDSIDE. NO RESP DISTRESS NOTED AT THIS TIME. WILL CONT TO MONITOR PT T/O SHIFT.
[2019-08-26 21:09] VITALS: BP 108/67
[2019-08-26] MEDS: ASCORBIC ACID 500 MG TABLET GT SCH (21:45)
[2019-08-26] MEDS: INSULIN GLARGINE, 100 UNIT/ML CARTRIDGE SQ SCH (22:21)
--- NOTE | 2019-08-27 00:30 | NUR ---
Temp 100.7 ,HR 117, cooling measures and Tylenol given as ordered. Will continue to monitor.
[2019-08-27] MEDS: ACETAMINOPHEN 650 MG/20 ML UDC- SA PATIENTS-FEVER ONLY GT PRN (00:36)
[2019-08-27] MEDS: ALBUTEROL FS 2.5 MG/3 ML VIAL.NEB NEB SCH ×4 (00:41→20:07)
[2019-08-27] MEDS: BLOOD SUGAR DIAGNOSTIC 1 EACH STRIP IN SCH ×2 (05:47→18:20)
[2019-08-27] MEDS: GABAPENTIN 250 MG/5 ML SOLUTION GT SCH ×3 (05:47→20:30)
[2019-08-27] MEDS: METOCLOPRAMIDE HCL 10 MG TABLET GT SCH ×4 (05:47→23:01)
[2019-08-27] MEDS: OMEPRAZOLE 20 MG CAPSULE.DR GT SCH (05:47)
[2019-08-27] MEDS: INSULIN REGULAR, HUMAN 100 UNIT/ML 3 ML VIAL SQ PRN ×2 (05:47→18:21)
--- NOTE | 2019-08-27 06:13 | NUR ---
Temp 98.9 HR 95,no respiratory distress. Patient nephrostomy output is bloody and ,maher catheter output with hematuria.Will continue to monitor and will endorse.
[2019-08-27 07:17] LABS: BASOPHILS # (AUTO) 0.1 /CMM (0.0-0.2); BASOPHILS % (AUTO) 0.6 % (0.0-2.0); BILIRUBIN,TOTAL 0.5 mg/dL (0.2-1.0); CALCIUM, SERUM 9.9 mg/dL (8.5-10.1); CREATININE 3.7 mg/dL (0.6-1.3); EOSINOPHILS % (AUTO) 1.2 % (0.0-6.0); HEMATOCRIT 22 % (33-45); HEMOGLOBIN 7.3 g/dL (11.5-14.8); LYMPHOCYTES # (AUTO) 1.7 /CMM (0.8-4.8); LYMPHOCYTES % (AUTO) 11.4 % (20.0-44.0); MAGNESIUM 2.9 mg/dL (1.8-2.4); MEAN CORPUSCULAR HGB CONC 33 g/dl (31.0-36.0); MEAN CORPUSCULAR VOLUME 96 fL (82-100); MONOCYTES % (AUTO) 13.5 % (2.0-12.0); NEUTROPHILS % (AUTO) 73.3 % (43.0-81.0); PHOSPHORUS 4.6 mg/dL (2.5-4.9); PLATELET COUNT (AUTO) 327 /CMM (150-450); POTASSIUM 4.2 mmol/L (3.5-5.1); RED BLOOD CELL COUNT(AUTO) 2.33 MIL/uL (4.0-5.2); TOTAL PROTEIN, SERUM 9.3 g/dL (6.4-8.2)
[2019-08-27 07:33] LABS: ALBUMIN 1.7 g/dL (3.4-5.0)
[2019-08-27 07:44] VITALS: BP 130/65
--- NOTE | 2019-08-27 08:27 | NUR ---
Pt received on current settings. Airway is patent and secure with no signs of respiratory distress. HHN tx given with no adverse reactions. Vent is plugged into red outlet with alarms on and audible. Sx pt as needed. Will continue to monitor. Addendum: 08/27/19 at 0828 by KEVIN ZARAGOZA RT Amended: Links added.
[2019-08-27] MEDS: HYDROGEN PEROXIDE 480 ML BOTTLE TP SCH ×2 (08:41→20:07)
[2019-08-27] MEDS: SENNOSIDES 8.6 MG TABLET GT SCH ×2 (09:00→20:30)
[2019-08-27] MEDS: Z GUARD REMEDY 2 OZ OINT TP SCH ×2 (09:00→20:30)
[2019-08-27] MEDS: DOCUSATE SODIUM LIQ 100 MG/10 ML UDC GT SCH (09:00)
[2019-08-27] MEDS: TRILEPTAL GT SCH ×2 (09:00→20:30)
[2019-08-27] MEDS: MULTIVIT W/MINERALS 1 TAB TABLET GT SCH (09:00)
[2019-08-27] MEDS: IV NS 0.9% 1,000 ML IV PRN (09:00)
[2019-08-27] MEDS: SIMETHICONE SUSP 40 MG/0.6 ML BOTTLE GT SCH ×2 (09:00→20:30)
[2019-08-27] MEDS: LEVETIRACETAM SOL (5 ML) 100 MG/ML UDC GT SCH ×2 (09:00→20:30)
[2019-08-27] MEDS: VITS A AND D/WHITE PET/LANOLIN 5 GM PACKET TP SCH ×2 (09:00→20:30)
[2019-08-27] MEDS: ACIDOPHILUS/BULGARICUS 1 EACH TAB.CHEW GT SCH ×2 (09:00→17:08)
--- NOTE | 2019-08-27 09:50 | NUR ---
Left a message with Dr. Luis regarding patient's condition, recent CBC and CMP result with WBC of 15 and Hbg level 7.3.which is trending down. Informed Dr. Luis that nephrostomy tube with bloody output and F/C with hematuria. Patient also developed fever last night 100.7, current V/S 99, 69, 16, 100%. 112/68. Patient's BUN and Creat being monitored by apiculturist, currently on NS at 75 cc/hr., and off antibiotic. Awaiting for MD's response.
--- NOTE | 2019-08-27 11:00 | NUR ---
Requested Dr. Felix to assess patient's condition, patient responds to verbal and painful stimulation, listless, not is acute respiratory distress. patient's FC with hematuria and nephrostomy tube output bloody. Recent CBC shows WBC of 15 and Hbg dropped to 7.3 from 8.4 on 08/24. New order given to obtain UA and C & S, and BC. Order carried out.
--- NOTE | 2019-08-27 11:15 | NUR ---
NAN Loredo ID notified of the consult, she said that she will be in after 3PM.
--- NOTE | 2019-08-27 12:00 | NUR ---
Notified and updated resident's sister of patient's in condition including current orders given by Dr. Felix. Beckie has a lot of concerns and verbalized she needed to speak with Dr. Luis i.e. as to why patient's Hbg is dropping, why nephrostomy tube output remains bloody, why patient is not tested with Covid-19 yet? shouldn't all patient in subacute be tested against Banda virus? Tried to respond to her concerns but she said she could not understand me. Informed resident's sister that Dr. Luis will be notified of her request. Left a message to Dr. Luis regarding family's request to speak with him.
--- NOTE | 2019-08-27 12:30 | NUR ---
Dr. Luis acknowledged he received the message regarding family's request to speak with him. Gave Beckie's contact information to .
--- NOTE | 2019-08-27 18:48 | NUR ---
Resident seen by BHARGAVI Loredo , reviewed labs, said she will wait for culture result.
[2019-08-27] MEDS ORDERED: DOSING PER PHARMACY-AMIKACI IV XX PRN (19:00)
[2019-08-27] MEDS: ASCORBIC ACID 500 MG TABLET GT SCH (20:30)
[2019-08-27 20:53] VITALS: BP 125/68
[2019-08-27] MEDS: INSULIN GLARGINE, 100 UNIT/ML CARTRIDGE SQ SCH (21:17)
[2019-08-27] MEDS: AMIKACIN 300 MG in IV D5W 100 ML IV SCH (22:00)
--- NOTE | 2019-08-27 22:00 | NUR ---
Amikacin 300mg IV given. Medication taken from [facility].
[2019-08-28] MEDS: ALBUTEROL FS 2.5 MG/3 ML VIAL.NEB NEB SCH ×4 (01:17→20:00)
--- NOTE | 2019-08-28 03:42 | NUR ---
Charge nurse called Beckie Chu [phone] no one picked up. left a voicemail with call back number.
--- NOTE | 2019-08-28 03:54 | NUR ---
RT NOTE RECEIVED PATIENT ON MECHANICAL VENT WITH ORDERED SETTINGS. ALARMS ON AND AUDIBLE. VENT PLUGGED IN TO THE RED OUTLET. TRACH TUBE IN PLACE, PATENT, AND SECURED WITH TRACH TIE. AMBU BAG AND BACK UP TRACH BY THE BEDSIDE. NO SIGNS OF ANY DISTRESS AT THIS TIME.
[2019-08-28] MEDS: GABAPENTIN 250 MG/5 ML SOLUTION GT SCH ×3 (05:21→20:59)
[2019-08-28] MEDS: BLOOD SUGAR DIAGNOSTIC 1 EACH STRIP IN SCH ×2 (05:21→18:12)
[2019-08-28] MEDS: GLUCERNA 1.2 1,000 ML BOTTLE GT PRN ×2 (05:21→17:48)
[2019-08-28] MEDS: METOCLOPRAMIDE HCL 10 MG TABLET GT SCH ×3 (05:21→17:11)
[2019-08-28] MEDS: OMEPRAZOLE 20 MG CAPSULE.DR GT SCH (05:21)
[2019-08-28] MEDS: INSULIN REGULAR, HUMAN 100 UNIT/ML 3 ML VIAL SQ PRN ×2 (05:21→18:12)
[2019-08-28 06:06] LABS: APPEARANCE,URINE CLOUDY (CLEAR); BILIRUBIN,URINE SMALL (NEGATIVE); BLOOD, URINE 3+ Ery/uL (NEGATIVE); COLOR,URINE RED (YELLOW); PROTEIN,URINE 2+ mg/dl (NEGATIVE); UGLUCOSE NEGATIVE (NEGATIVE)
[2019-08-28 06:07] LABS: KETONES,URINE TRACE (NEGATIVE); LEUKOCYTE ESTERASE ,URINE 3+ (NEGATIVE); NITRITE, URINE POSITIVE (NEGATIVE)
[2019-08-28 06:10] LABS: BACTERIA,URINE Few /HPF (None Seen); RBC,URINE TOO NUMEROUS TO COUN /HPF (0-2)
[2019-08-28 07:35] VITALS: BP 134/74
[2019-08-28] MEDS: HYDROGEN PEROXIDE 480 ML BOTTLE TP SCH ×2 (08:00→21:45)
[2019-08-28] MEDS: TRILEPTAL GT SCH ×2 (09:00→21:00)
[2019-08-28] MEDS: SENNOSIDES 8.6 MG TABLET GT SCH ×2 (09:00→21:00)
[2019-08-28] MEDS: LEVETIRACETAM SOL (5 ML) 100 MG/ML UDC GT SCH ×2 (09:00→20:58)
[2019-08-28] MEDS: DOCUSATE SODIUM LIQ 100 MG/10 ML UDC GT SCH (09:00)
[2019-08-28] MEDS: VITS A AND D/WHITE PET/LANOLIN 5 GM PACKET TP SCH ×2 (09:00→21:01)
[2019-08-28] MEDS: Z GUARD REMEDY 2 OZ OINT TP SCH ×2 (09:00→21:01)
[2019-08-28] MEDS: ACIDOPHILUS/BULGARICUS 1 EACH TAB.CHEW GT SCH ×2 (09:00→17:11)
[2019-08-28] MEDS: MULTIVIT W/MINERALS 1 TAB TABLET GT SCH (09:00)
[2019-08-28] MEDS: SIMETHICONE SUSP 40 MG/0.6 ML BOTTLE GT SCH ×2 (09:00→20:58)
--- NOTE | 2019-08-28 10:26 | NUR ---
Beckie called back, informed her about new antibiotic IV order.
[2019-08-28] MEDS: IV NS 0.9% 1,000 ML IV PRN (18:10)
[2019-08-28 19:55] VITALS: BP 126/62
--- NOTE | 2019-08-28 20:00 | NUR ---
RN NOTES Noted midline leaking. Attempted to flush but was not able to flush, leaking. Received order to d/c midline, ok to insert peripheral IV to lower extremities d/t poor IV access. Orders noted and carried out.
[2019-08-28] MEDS: ASCORBIC ACID 500 MG TABLET GT SCH (21:00)
[2019-08-28] MEDS: INSULIN GLARGINE, 100 UNIT/ML CARTRIDGE SQ SCH (21:27)
--- NOTE | 2019-08-28 22:09 | NUR ---
PT RECEIVE STABLE ON MV, SETTINGS ARE AC 12 500 +5 @30% FIO2, VENT PLUG IN RED OUTLET, TRACH PATENT AND SECURED, AMBU BAG AND SPARE TRACH IS AT BEDSIDE, WILL CONTINUE TO MONITOR Addendum: 08/28/19 at 2210 by ASHLI GRIGGS RT Amended: Links added.
[2019-08-29] MEDS: METOCLOPRAMIDE HCL 10 MG TABLET GT SCH ×4 (00:23→17:32)
[2019-08-29] MEDS: ALBUTEROL FS 2.5 MG/3 ML VIAL.NEB NEB SCH ×4 (02:27→19:57)
[2019-08-29] MEDS: OMEPRAZOLE 20 MG CAPSULE.DR GT SCH (05:13)
[2019-08-29] MEDS: GABAPENTIN 250 MG/5 ML SOLUTION GT SCH ×3 (05:13→20:49)
[2019-08-29] MEDS: BLOOD SUGAR DIAGNOSTIC 1 EACH STRIP IN SCH ×2 (05:14→17:32)
[2019-08-29] MEDS: INSULIN REGULAR, HUMAN 100 UNIT/ML 3 ML VIAL SQ PRN ×2 (05:14→17:33)
[2019-08-29 06:59] LABS: BASOPHILS # (AUTO) 0.1 /CMM (0.0-0.2); BASOPHILS % (AUTO) 0.4 % (0.0-2.0); EOSINOPHILS % (AUTO) 2.8 % (0.0-6.0); HEMATOCRIT 21 % (33-45); LYMPHOCYTES # (AUTO) 1.2 /CMM (0.8-4.8); LYMPHOCYTES % (AUTO) 9.3 % (20.0-44.0); MEAN CORPUSCULAR HGB CONC 32 g/dl (31.0-36.0); MEAN CORPUSCULAR VOLUME 97 fL (82-100); MONOCYTES # (AUTO) 1.7 /CMM (0.1-1.30); MONOCYTES % (AUTO) 13.6 % (2.0-12.0); NEUTROPHILS # (AUTO) 9.1 /CMM (1.8-8.9); NEUTROPHILS % (AUTO) 73.9 % (43.0-81.0); PLATELET COUNT (AUTO) 321 /CMM (150-450); RED BLOOD CELL COUNT(AUTO) 2.18 MIL/uL (4.0-5.2); WHITE BLOOD COUNT (AUTO) 12.3 K/uL (4.3-11.0)
[2019-08-29 07:23] LABS: HEMOGLOBIN 6.6 g/dL (11.5-14.8)
--- NOTE | 2019-08-29 07:30 | NUR ---
Notified Dr Luis that Hgb 6.6. Received order to transfuse 1 unit of PRBC and do US kidney to confirm nephrostomy tube placement. Notified Beckie.
[2019-08-29 07:36] LABS: BAND % (MANUAL) 2 % (0.0-5.0); EOSINOPHILS % (MANUAL) 1 % (0-4); LYMPHOCYTES % (MANUAL) 10 % (16-48); MONOCYTES % (MANUAL) 12 % (0-11.0); NEUTROPHILS % (MANUAL) 75 (42-76)
[2019-08-29 07:39] LABS: CREATININE 3.2 mg/dL (0.6-1.3)
[2019-08-29 07:43] VITALS: BP 129/69
[2019-08-29] MEDS: LEVETIRACETAM SOL (5 ML) 100 MG/ML UDC GT SCH ×2 (09:00→20:48)
[2019-08-29] MEDS: SIMETHICONE SUSP 40 MG/0.6 ML BOTTLE GT SCH ×2 (09:00→20:49)
[2019-08-29] MEDS: DOCUSATE SODIUM LIQ 100 MG/10 ML UDC GT SCH (09:00)
[2019-08-29] MEDS: TRILEPTAL GT SCH ×2 (09:00→20:49)
[2019-08-29] MEDS: SENNOSIDES 8.6 MG TABLET GT SCH ×2 (09:00→20:50)
[2019-08-29] MEDS: Z GUARD REMEDY 2 OZ OINT TP SCH ×2 (09:00→20:51)
[2019-08-29] MEDS: ACIDOPHILUS/BULGARICUS 1 EACH TAB.CHEW GT SCH ×2 (09:00→17:32)
[2019-08-29] MEDS: MULTIVIT W/MINERALS 1 TAB TABLET GT SCH (09:00)
[2019-08-29] MEDS: VITS A AND D/WHITE PET/LANOLIN 5 GM PACKET TP SCH ×2 (09:00→20:51)
--- NOTE | 2019-08-29 09:05 | NUR ---
Received order from Dr Luis to place a midline catheter due to poor venous access. Notified Beckie. Also notified nursing tnt line supervisor.
[2019-08-29] MEDS: HYDROGEN PEROXIDE 480 ML BOTTLE TP SCH ×2 (09:58→21:20)
[2019-08-29] MEDS: AMIKACIN 300 MG in IV D5W 100 ML IV SCH (10:00)
--- NOTE | 2019-08-29 10:17 | NUR ---
RT NOTE RECEIVED PT MECHANICALLY VENTILATED VIA CUFFED TRACHEOSTOMY TUBE. CUFF INFLATED. TRACH TUBE MIDLINE AND SECURE. VENTILATOR SETTINGS PRESCRIBED. ALARMS SET PER PROTOCOL AND AUDIBLE. VENT PLUGGED IN TO RED OUTLET. AMBU BAG AND BACK UP TRACH AT BED SIDE. NO DISTRESS NOTED. Addendum: 08/29/19 at 1017 by MAXI BRADY RT Amended: Links added.
--- NOTE | 2019-08-29 12:09 | NUR ---
Notified Dr Luis that midline will be placed at 2 pm. Attempted to insert peripheral line again but unsuccessful.
--- NOTE | 2019-08-29 14:20 | NUR ---
Followed up midline with nursing malt liquors sales supervisor. She said she has already informed Subacute earlier that the nurse is coming at 2pm and it is only a little after 2 pm. Informed her that midline is needed for blood transfusion. She said she will ask the nurse to prioritize the pt.
--- NOTE | 2019-08-29 14:40 | NUR ---
Relayed US kidney result to Dr Luis.
[2019-08-29] MEDS: IV NS 0.9% 1,000 ML IV PRN (15:00)
[2019-08-29] MEDS: EPOETIN ALFA (10,000 UNIT) 10,000 UNIT/ML VIAL SQ SCH (15:05)
--- NOTE | 2019-08-29 15:30 | NUR ---
Midline catheter was placed on right upper arm. Pt tolerated procedure well.
[2019-08-29 15:47] VITALS: BP 134/75
--- NOTE | 2019-08-29 15:47 | NUR ---
Started transfusing 1 unit of PRBC. BP 134/75 HR 91 T 99.1 F R 16. Pt sleeping but easily arousable from sleep with verbal and tactile stimuli.
[2019-08-29 16:04] VITALS: BP 145/79
--- NOTE | 2019-08-29 16:10 | NUR ---
Pt has no adverse reactions to blood transfusion.
[2019-08-29 16:30] VITALS: BP 145/78
[2019-08-29] MEDS: GLUCERNA 1.2 1,000 ML BOTTLE GT PRN (16:58)
[2019-08-29 18:48] VITALS: BP 148/79
--- NOTE | 2019-08-29 18:49 | NUR ---
Transfused 1 unit of PRBC. No adverse reaction noted.
[2019-08-29 19:45] VITALS: BP 141/78
[2019-08-29] MEDS: ASCORBIC ACID 500 MG TABLET GT SCH (20:51)
[2019-08-29] MEDS: INSULIN GLARGINE, 100 UNIT/ML CARTRIDGE SQ SCH (21:36)
[2019-08-30] MEDS: ALBUTEROL FS 2.5 MG/3 ML VIAL.NEB NEB SCH ×4 (01:47→19:36)
[2019-08-30] MEDS: INSULIN REGULAR, HUMAN 100 UNIT/ML 3 ML VIAL SQ PRN ×2 (05:49→18:04)
[2019-08-30] MEDS: BLOOD SUGAR DIAGNOSTIC 1 EACH STRIP IN SCH ×2 (05:49→18:04)
[2019-08-30] MEDS: OMEPRAZOLE 20 MG CAPSULE.DR GT SCH (05:49)
[2019-08-30] MEDS: GABAPENTIN 250 MG/5 ML SOLUTION GT SCH ×3 (05:49→21:59)
[2019-08-30] MEDS: METOCLOPRAMIDE HCL 10 MG TABLET GT SCH ×5 (05:49→23:35)
[2019-08-30 07:37] VITALS: BP 122/62
[2019-08-30] MEDS: IV NS 0.9% 1,000 ML IV PRN ×2 (07:41→22:00)
[2019-08-30] MEDS: HYDROGEN PEROXIDE 480 ML BOTTLE TP SCH ×2 (08:06→21:33)
[2019-08-30] MEDS: ACIDOPHILUS/BULGARICUS 1 EACH TAB.CHEW GT SCH ×2 (09:55→17:06)
[2019-08-30] MEDS: DOCUSATE SODIUM LIQ 100 MG/10 ML UDC GT SCH (09:55)
[2019-08-30] MEDS: LEVETIRACETAM SOL (5 ML) 100 MG/ML UDC GT SCH ×2 (09:55→21:55)
[2019-08-30] MEDS: SIMETHICONE SUSP 40 MG/0.6 ML BOTTLE GT SCH ×2 (09:55→21:57)
[2019-08-30] MEDS: VITS A AND D/WHITE PET/LANOLIN 5 GM PACKET TP SCH ×2 (09:56→21:59)
[2019-08-30] MEDS: MULTIVIT W/MINERALS 1 TAB TABLET GT SCH (09:56)
[2019-08-30] MEDS: Z GUARD REMEDY 2 OZ OINT TP SCH ×2 (09:56→21:59)
[2019-08-30] MEDS: SENNOSIDES 8.6 MG TABLET GT SCH ×2 (09:56→21:59)
[2019-08-30] MEDS: TRILEPTAL GT SCH ×2 (09:56→21:59)
--- NOTE | 2019-08-30 13:00 | NUR ---
Asked FIFTH HAND Ángel Alvarez for Amikacin stop date. She said she will review it today.
--- NOTE | 2019-08-30 13:40 | NUR ---
Received order to continue Amikacin 300 mg IV q 36 hours, do Amikacin trough BUN Cr 30 minutes before 3rd dose on 09/02/19 7078.
[2019-08-30] MEDS: GLUCERNA 1.2 1,000 ML BOTTLE GT PRN (13:49)
[2019-08-30 19:59] VITALS: BP 135/76
--- NOTE | 2019-08-30 20:01 | NUR ---
RT NOTE PT RCMAI'D ON MECHANICAL VENT WITH MD ORDERED SETTINGS. VENT PLUGGED INTO RED OUTLET. AMBU BAG/ BACKUP TRACH AT BEDSIDE. NO SOB NOTED AT THIS TIME. WILL CONTINUE TO MONITOR CLOSELY Addendum: 08/30/19 at 2002 by ALIA TEIXEIRA RT Amended: Links added.
[2019-08-30] MEDS: ASCORBIC ACID 500 MG TABLET GT SCH (21:59)
[2019-08-30] MEDS: AMIKACIN 300 MG in IV D5W 100 ML IV SCH (22:00)
[2019-08-30] MEDS: INSULIN GLARGINE, 100 UNIT/ML CARTRIDGE SQ SCH (22:30)
[2019-08-31] MEDS: ALBUTEROL FS 2.5 MG/3 ML VIAL.NEB NEB SCH ×4 (00:34→19:41)
[2019-08-31] MEDS: GABAPENTIN 250 MG/5 ML SOLUTION GT SCH ×3 (05:44→21:08)
[2019-08-31] MEDS: OMEPRAZOLE 20 MG CAPSULE.DR GT SCH (05:46)
[2019-08-31] MEDS: METOCLOPRAMIDE HCL 10 MG TABLET GT SCH ×3 (05:48→18:18)
[2019-08-31] MEDS: BLOOD SUGAR DIAGNOSTIC 1 EACH STRIP IN SCH ×2 (06:24→18:18)
[2019-08-31] MEDS: INSULIN REGULAR, HUMAN 100 UNIT/ML 3 ML VIAL SQ PRN ×2 (06:24→18:19)
[2019-08-31 07:40] VITALS: BP 131/67
[2019-08-31] MEDS: HYDROGEN PEROXIDE 480 ML BOTTLE TP SCH ×2 (07:42→19:41)
[2019-08-31] MEDS: SENNOSIDES 8.6 MG TABLET GT SCH ×2 (09:00→21:08)
[2019-08-31] MEDS: TRILEPTAL GT SCH ×2 (09:00→21:08)
[2019-08-31] MEDS: DOCUSATE SODIUM LIQ 100 MG/10 ML UDC GT SCH (09:00)
[2019-08-31] MEDS: ACIDOPHILUS/BULGARICUS 1 EACH TAB.CHEW GT SCH ×2 (09:00→17:00)
[2019-08-31] MEDS: MULTIVIT W/MINERALS 1 TAB TABLET GT SCH (09:00)
[2019-08-31] MEDS: SIMETHICONE SUSP 40 MG/0.6 ML BOTTLE GT SCH ×2 (09:00→21:08)
[2019-08-31] MEDS: VITS A AND D/WHITE PET/LANOLIN 5 GM PACKET TP SCH ×2 (09:00→21:08)
[2019-08-31] MEDS: LEVETIRACETAM SOL (5 ML) 100 MG/ML UDC GT SCH ×2 (09:00→21:08)
[2019-08-31] MEDS: Z GUARD REMEDY 2 OZ OINT TP SCH ×2 (09:00→21:08)
--- NOTE | 2019-08-31 12:28 | NUR ---
Dr. Montgomery came by, he said he will order labs for tomorrow.
--- NOTE | 2019-08-31 13:28 | NUR ---
Family invitation to video chat with patient: This SW called the patient's daughter, sister, Beckie Chu [phone] to let her know that the video chat option is now an option for family/patient interaction. Beckie stated "Wow, thank you so much". Beckie stated that her availability is open. Per Beckie she has an ipad and would like us to call her at [phone]. SW will facilitate phone call between family and patient as needed. SW will facilitate video chat between patient and family as needed.
[2019-08-31] MEDS: IV NS 0.9% 1,000 ML IV PRN (14:08)
[2019-08-31] MEDS: GLUCERNA 1.2 1,000 ML BOTTLE GT PRN (15:27)
--- NOTE | 2019-08-31 15:29 | NUR ---
Updated Beckie (sister) of patient's condition. She inquired about the renal ultrasound result done on 08/28, which was read to her. She was also made aware that nephrostomy output still bloody while FC urine output dark jason in color. Resident's urine culture shows positive for ESBL and patient currently on IV Amikacin. Informed Beckie that per Dr. Montgomery, he will order follow-up labs for tomorrow.
--- NOTE | 2019-08-31 17:17 | NUR ---
Noted an electronic order from Dr. Montgomery for CBC, BMP, Mg and Phos and Iron Panel in AM. Orders noted and carried out.
[2019-08-31 19:46] VITALS: BP 129/69
[2019-08-31] MEDS: ASCORBIC ACID 500 MG TABLET GT SCH (21:08)
[2019-08-31] MEDS: INSULIN GLARGINE, 100 UNIT/ML CARTRIDGE SQ SCH (21:10)
[2019-09-01] MEDS: METOCLOPRAMIDE HCL 10 MG TABLET GT SCH ×5 (00:07→23:24)
[2019-09-01] MEDS: ALBUTEROL FS 2.5 MG/3 ML VIAL.NEB NEB SCH ×4 (02:04→20:14)
[2019-09-01] MEDS: IV NS 0.9% 1,000 ML IV PRN ×2 (04:13→20:28)
[2019-09-01] MEDS: INSULIN REGULAR, HUMAN 100 UNIT/ML 3 ML VIAL SQ PRN (05:40)
[2019-09-01] MEDS: OMEPRAZOLE 20 MG CAPSULE.DR GT SCH (05:40)
[2019-09-01] MEDS: BLOOD SUGAR DIAGNOSTIC 1 EACH STRIP IN SCH ×2 (05:40→18:11)
[2019-09-01] MEDS: GABAPENTIN 250 MG/5 ML SOLUTION GT SCH ×3 (05:40→20:44)
[2019-09-01 07:09] LABS: BASOPHILS % (AUTO) 0.4 % (0.0-2.0); EOSINOPHILS % (AUTO) 4.3 % (0.0-6.0); HEMATOCRIT 26 % (33-45); HEMOGLOBIN 8.3 g/dL (11.5-14.8); LYMPHOCYTES # (AUTO) 1.7 /CMM (0.8-4.8); LYMPHOCYTES % (AUTO) 15.6 % (20.0-44.0); MEAN CORPUSCULAR HGB CONC 33 g/dl (31.0-36.0); MEAN CORPUSCULAR VOLUME 94 fL (82-100); MONOCYTES # (AUTO) 1.5 /CMM (0.1-1.30); MONOCYTES % (AUTO) 13.3 % (2.0-12.0); NEUTROPHILS # (AUTO) 7.2 /CMM (1.8-8.9); NEUTROPHILS % (AUTO) 66.4 % (43.0-81.0); PLATELET COUNT (AUTO) 416 /CMM (150-450); RED BLOOD CELL COUNT(AUTO) 2.71 MIL/uL (4.0-5.2); WHITE BLOOD COUNT (AUTO) 10.9 K/uL (4.3-11.0)
[2019-09-01 07:42] VITALS: BP 140/60
[2019-09-01 07:49] LABS: IRON, SERUM 25 ug/dl (50-175); TOTAL IRON BINDING CAPACITY 96 ug/dl (250-450)
[2019-09-01 07:59] LABS: CALCIUM, SERUM 9.6 mg/dL (8.5-10.1); CREATININE 2.6 mg/dL (0.6-1.3); MAGNESIUM 2.3 mg/dL (1.8-2.4); PHOSPHORUS 3.8 mg/dL (2.5-4.9); POTASSIUM 4.5 mmol/L (3.5-5.1)
[2019-09-01] MEDS: MULTIVIT W/MINERALS 1 TAB TABLET GT SCH (09:38)
[2019-09-01] MEDS: VITS A AND D/WHITE PET/LANOLIN 5 GM PACKET TP SCH ×2 (09:38→20:45)
[2019-09-01] MEDS: SENNOSIDES 8.6 MG TABLET GT SCH ×2 (09:38→20:45)
[2019-09-01] MEDS: ACIDOPHILUS/BULGARICUS 1 EACH TAB.CHEW GT SCH ×2 (09:38→17:27)
[2019-09-01] MEDS: Z GUARD REMEDY 2 OZ OINT TP SCH ×2 (09:38→20:45)
[2019-09-01] MEDS: DOCUSATE SODIUM LIQ 100 MG/10 ML UDC GT SCH (09:38)
[2019-09-01] MEDS: SIMETHICONE SUSP 40 MG/0.6 ML BOTTLE GT SCH ×2 (09:38→20:44)
[2019-09-01] MEDS: LEVETIRACETAM SOL (5 ML) 100 MG/ML UDC GT SCH ×2 (09:38→20:44)
[2019-09-01] MEDS: TRILEPTAL GT SCH ×2 (09:38→20:45)
[2019-09-01] MEDS: AMIKACIN 300 MG in IV D5W 100 ML IV SCH (10:00)
[2019-09-01] MEDS: HYDROGEN PEROXIDE 480 ML BOTTLE TP SCH ×2 (10:15→21:10)
[2019-09-01] MEDS: GLUCERNA 1.2 1,000 ML BOTTLE GT PRN (12:13)
[2019-09-01 19:54] VITALS: BP 129/68
[2019-09-01] MEDS: MAGNESIUM HYDROXIDE 30 ML UDC GT PRN (20:00)
[2019-09-01] MEDS: ASCORBIC ACID 500 MG TABLET GT SCH (20:45)
[2019-09-01] MEDS: INSULIN GLARGINE, 100 UNIT/ML CARTRIDGE SQ SCH (21:14)
[2019-09-02] MEDS: ALBUTEROL FS 2.5 MG/3 ML VIAL.NEB NEB SCH ×4 (01:25→20:17)
[2019-09-02] MEDS: GLUCERNA 1.2 1,000 ML BOTTLE GT PRN (04:43)
[2019-09-02] MEDS: OMEPRAZOLE 20 MG CAPSULE.DR GT SCH (05:11)
[2019-09-02] MEDS: METOCLOPRAMIDE HCL 10 MG TABLET GT SCH ×3 (05:11→17:21)
[2019-09-02] MEDS: GABAPENTIN 250 MG/5 ML SOLUTION GT SCH ×3 (05:11→20:57)
[2019-09-02] MEDS: BLOOD SUGAR DIAGNOSTIC 1 EACH STRIP IN SCH ×2 (05:20→17:34)
[2019-09-02] MEDS: INSULIN REGULAR, HUMAN 100 UNIT/ML 3 ML VIAL SQ PRN ×2 (05:20→17:34)
--- NOTE | 2019-09-02 06:58 | NUR ---
Patient nephrostomy output still slightly reddish color.IV hydration of NS 75ml/hr continuously.Stable during the night. Will continue to monitor.
[2019-09-02 07:22] VITALS: BP 146/69
[2019-09-02] MEDS: HYDROGEN PEROXIDE 480 ML BOTTLE TP SCH ×2 (07:52→21:45)
[2019-09-02] MEDS: Z GUARD REMEDY 2 OZ OINT TP SCH ×2 (09:38→20:57)
[2019-09-02] MEDS: TRILEPTAL GT SCH ×2 (09:38→20:57)
[2019-09-02] MEDS: ACIDOPHILUS/BULGARICUS 1 EACH TAB.CHEW GT SCH ×2 (09:38→17:21)
[2019-09-02] MEDS: SIMETHICONE SUSP 40 MG/0.6 ML BOTTLE GT SCH ×2 (09:38→20:56)
[2019-09-02] MEDS: SENNOSIDES 8.6 MG TABLET GT SCH ×2 (09:38→20:57)
[2019-09-02] MEDS: VITS A AND D/WHITE PET/LANOLIN 5 GM PACKET TP SCH ×2 (09:38→20:57)
[2019-09-02] MEDS: DOCUSATE SODIUM LIQ 100 MG/10 ML UDC GT SCH (09:38)
[2019-09-02] MEDS: MULTIVIT W/MINERALS 1 TAB TABLET GT SCH (09:38)
[2019-09-02] MEDS: LEVETIRACETAM SOL (5 ML) 100 MG/ML UDC GT SCH ×2 (09:38→20:56)
[2019-09-02] MEDS: IV NS 0.9% 1,000 ML IV PRN ×2 (10:04→23:04)
[2019-09-02 14:45] VITALS: BP 146/69
--- NOTE | 2019-09-02 16:32 | NUR ---
INTERDISCIPLINARY PLAN OF CARE CONFERENCE took place today. The patients responsible democrat/ Beckie Chu was called to participate via phone conference but call went to voicemail and SW left call back number. Dr. Felix and Interdisciplinary team discussed the plan of care in detail. Current orders as well as treatments and medications were reviewed. Please see other disciplines IDT notes for further details.
--- NOTE | 2019-09-02 17:10 | NUR ---
Relayed kidney US result (08/29/19) to Dr. Cosme as instructed by Dr. Felix during IDT meeting. No new order given at this time. Dr. Luis also made rounds and verbalized that he spoke with patient's sister last week. He also reviewed kidney US result with order to also relay result to urologist Dr. Braga if he can recommend something else due to persistent hematuria that leads to several blood transfusion. Left a message to his office, awaiting for MD to call back.
--- NOTE | 2019-09-02 19:25 | NUR ---
Received a call from Dr. Braga and relayed Dr. Luis's message and verbally inform him of the kidney US result. He said " I don't have anything to recommend and unfortunately she needs the tube". Will relay the message to Dr. Luis.
[2019-09-02 19:47] VITALS: BP 125/75
[2019-09-02] MEDS: FERROUS SULFATE - FOR SA ONLY 330 MG/7.5 ML UDC GT SCH (20:56)
[2019-09-02] MEDS: ASCORBIC ACID 500 MG TABLET GT SCH (20:57)
[2019-09-02] MEDS: INSULIN GLARGINE, 100 UNIT/ML CARTRIDGE SQ SCH (22:00)
[2019-09-02] MEDS: AMIKACIN 300 MG in IV D5W 100 ML IV SCH (22:45)
[2019-09-02 23:29] LABS: CREATININE 2.7 mg/dL (0.6-1.3)
[2019-09-03] MEDS: METOCLOPRAMIDE HCL 10 MG TABLET GT SCH ×4 (00:38→17:17)
[2019-09-03] MEDS: ALBUTEROL FS 2.5 MG/3 ML VIAL.NEB NEB SCH ×4 (01:25→19:28)
[2019-09-03] MEDS: GLUCERNA 1.2 1,000 ML BOTTLE GT PRN (05:26)
[2019-09-03] MEDS: GABAPENTIN 250 MG/5 ML SOLUTION GT SCH ×3 (05:26→21:36)
[2019-09-03] MEDS: BLOOD SUGAR DIAGNOSTIC 1 EACH STRIP IN SCH ×2 (05:26→17:19)
[2019-09-03] MEDS: OMEPRAZOLE 20 MG CAPSULE.DR GT SCH (05:26)
[2019-09-03] MEDS: INSULIN REGULAR, HUMAN 100 UNIT/ML 3 ML VIAL SQ PRN ×2 (05:27→17:20)
--- NOTE | 2019-09-03 06:44 | NUR ---
Patient BUN 35,Creatine 2.7, Amikacin trough 8.7 as reported by medical lab director. Results faxed to [facility] pharmacist for dosing. Waiting for reply. Will endorsed.
[2019-09-03 07:34] VITALS: BP 140/66
[2019-09-03] MEDS: HYDROGEN PEROXIDE 480 ML BOTTLE TP SCH ×2 (08:58→21:00)
[2019-09-03] MEDS: VITS A AND D/WHITE PET/LANOLIN 5 GM PACKET TP SCH ×2 (09:00→21:36)
[2019-09-03] MEDS: SENNOSIDES 8.6 MG TABLET GT SCH ×2 (09:00→21:36)
[2019-09-03] MEDS: TRILEPTAL GT SCH ×2 (09:00→21:36)
[2019-09-03] MEDS: SIMETHICONE SUSP 40 MG/0.6 ML BOTTLE GT SCH ×2 (09:00→21:36)
[2019-09-03] MEDS: LEVETIRACETAM SOL (5 ML) 100 MG/ML UDC GT SCH ×2 (09:00→21:36)
[2019-09-03] MEDS: DOCUSATE SODIUM LIQ 100 MG/10 ML UDC GT SCH (09:00)
[2019-09-03] MEDS: MULTIVIT W/MINERALS 1 TAB TABLET GT SCH (09:00)
[2019-09-03] MEDS: FERROUS SULFATE - FOR SA ONLY 330 MG/7.5 ML UDC GT SCH ×2 (09:00→21:36)
[2019-09-03] MEDS: ACIDOPHILUS/BULGARICUS 1 EACH TAB.CHEW GT SCH ×2 (09:00→17:17)
[2019-09-03] MEDS: Z GUARD REMEDY 2 OZ OINT TP SCH ×2 (09:00→21:36)
--- NOTE | 2019-09-03 12:44 | NUR ---
Left a follow-up message to [facility] pharmacy for new orders/dosing of Amikacin based on Amikacin trough 8.7 and BUN 35, Creat 2.7.
[2019-09-03] MEDS: IV NS 0.9% 1,000 ML IV PRN (14:10)
--- NOTE | 2019-09-03 16:15 | NUR ---
Received a call from [facility] and obtain new dosing for Amikacin. Clarified Amikacin duration from NAN Calhoun, x 2 weeks. Order faxed to [facility].
[2019-09-03 20:52] VITALS: BP 112/60
[2019-09-03] MEDS: ASCORBIC ACID 500 MG TABLET GT SCH (21:36)
[2019-09-03] MEDS: INSULIN GLARGINE, 100 UNIT/ML CARTRIDGE SQ SCH (22:00)
[2019-09-04] MEDS: METOCLOPRAMIDE HCL 10 MG TABLET GT SCH ×4 (00:04→17:22)
[2019-09-04] MEDS: ALBUTEROL FS 2.5 MG/3 ML VIAL.NEB NEB SCH ×4 (01:35→19:23)
[2019-09-04] MEDS: GLUCERNA 1.2 1,000 ML BOTTLE GT PRN ×2 (01:49→19:01)
[2019-09-04] MEDS: IV NS 0.9% 1,000 ML IV PRN (03:04)
[2019-09-04] MEDS: OMEPRAZOLE 20 MG CAPSULE.DR GT SCH (05:48)
[2019-09-04] MEDS: INSULIN REGULAR, HUMAN 100 UNIT/ML 3 ML VIAL SQ PRN ×2 (05:48→18:07)
[2019-09-04] MEDS: BLOOD SUGAR DIAGNOSTIC 1 EACH STRIP IN SCH ×2 (05:48→18:06)
[2019-09-04] MEDS: GABAPENTIN 250 MG/5 ML SOLUTION GT SCH ×3 (05:48→21:36)
[2019-09-04 07:43] VITALS: BP 144/80
[2019-09-04] MEDS: MULTIVIT W/MINERALS 1 TAB TABLET GT SCH (09:41)
[2019-09-04] MEDS: DOCUSATE SODIUM LIQ 100 MG/10 ML UDC GT SCH (09:41)
[2019-09-04] MEDS: LEVETIRACETAM SOL (5 ML) 100 MG/ML UDC GT SCH ×2 (09:41→21:36)
[2019-09-04] MEDS: SENNOSIDES 8.6 MG TABLET GT SCH ×2 (09:41→21:37)
[2019-09-04] MEDS: SIMETHICONE SUSP 40 MG/0.6 ML BOTTLE GT SCH ×2 (09:41→21:36)
[2019-09-04] MEDS: VITS A AND D/WHITE PET/LANOLIN 5 GM PACKET TP SCH ×2 (09:41→21:37)
[2019-09-04] MEDS: ACIDOPHILUS/BULGARICUS 1 EACH TAB.CHEW GT SCH ×2 (09:41→17:22)
[2019-09-04] MEDS: FERROUS SULFATE - FOR SA ONLY 330 MG/7.5 ML UDC GT SCH ×2 (09:41→21:36)
[2019-09-04] MEDS: TRILEPTAL GT SCH ×2 (09:41→21:37)
[2019-09-04] MEDS: Z GUARD REMEDY 2 OZ OINT TP SCH ×2 (09:41→21:37)
[2019-09-04] MEDS: HYDROGEN PEROXIDE 480 ML BOTTLE TP SCH ×2 (10:20→21:00)
[2019-09-04 20:17] VITALS: BP 118/71
[2019-09-04] MEDS: INSULIN GLARGINE, 100 UNIT/ML CARTRIDGE SQ SCH (21:37)
[2019-09-04] MEDS: ASCORBIC ACID 500 MG TABLET GT SCH (21:37)
[2019-09-04] MEDS ORDERED: AMIKACIN 300 MG in IV D5W 100 ML IV SCH (22:00)
[2019-09-05] MEDS: METOCLOPRAMIDE HCL 10 MG TABLET GT SCH ×5 (00:14→23:41)
[2019-09-05] MEDS: ALBUTEROL FS 2.5 MG/3 ML VIAL.NEB NEB SCH ×4 (02:06→19:32)
[2019-09-05] MEDS: GABAPENTIN 250 MG/5 ML SOLUTION GT SCH ×3 (05:52→21:51)
[2019-09-05] MEDS: OMEPRAZOLE 20 MG CAPSULE.DR GT SCH (05:52)
[2019-09-05] MEDS: BLOOD SUGAR DIAGNOSTIC 1 EACH STRIP IN SCH ×2 (05:52→17:54)
[2019-09-05 07:58] VITALS: BP 124/73
[2019-09-05] MEDS: AMIKACIN 300 MG in IV D5W 100 ML IV SCH (09:00)
[2019-09-05] MEDS: HYDROGEN PEROXIDE 480 ML BOTTLE TP SCH ×2 (09:00→21:00)
[2019-09-05] MEDS: IV NS 0.9% 1,000 ML IV PRN ×2 (09:00→22:00)
[2019-09-05] MEDS: SENNOSIDES 8.6 MG TABLET GT SCH ×2 (09:57→21:51)
[2019-09-05] MEDS: Z GUARD REMEDY 2 OZ OINT TP SCH ×2 (09:57→21:51)
[2019-09-05] MEDS: VITS A AND D/WHITE PET/LANOLIN 5 GM PACKET TP SCH ×2 (09:57→21:51)
[2019-09-05] MEDS: ACIDOPHILUS/BULGARICUS 1 EACH TAB.CHEW GT SCH ×2 (09:57→17:54)
[2019-09-05] MEDS: SIMETHICONE SUSP 40 MG/0.6 ML BOTTLE GT SCH ×2 (09:57→21:51)
[2019-09-05] MEDS: MULTIVIT W/MINERALS 1 TAB TABLET GT SCH (09:57)
[2019-09-05] MEDS: FERROUS SULFATE - FOR SA ONLY 330 MG/7.5 ML UDC GT SCH ×2 (09:57→21:51)
[2019-09-05] MEDS: DOCUSATE SODIUM LIQ 100 MG/10 ML UDC GT SCH (09:57)
[2019-09-05] MEDS: TRILEPTAL GT SCH ×2 (09:57→21:51)
[2019-09-05] MEDS: LEVETIRACETAM SOL (5 ML) 100 MG/ML UDC GT SCH ×2 (09:57→21:51)
[2019-09-05] MEDS: GLUCERNA 1.2 1,000 ML BOTTLE GT PRN (13:45)
[2019-09-05] MEDS: EPOETIN ALFA (10,000 UNIT) 10,000 UNIT/ML VIAL SQ SCH (15:00)
[2019-09-05 20:22] VITALS: BP 144/70
[2019-09-05] MEDS: ASCORBIC ACID 500 MG TABLET GT SCH (21:51)
[2019-09-05] MEDS: INSULIN GLARGINE, 100 UNIT/ML CARTRIDGE SQ SCH (21:52)
[2019-09-06] MEDS: ALBUTEROL FS 2.5 MG/3 ML VIAL.NEB NEB SCH ×4 (01:38→20:08)
[2019-09-06] MEDS: METOCLOPRAMIDE HCL 10 MG TABLET GT SCH ×4 (05:44→23:41)
[2019-09-06] MEDS: GABAPENTIN 250 MG/5 ML SOLUTION GT SCH ×3 (05:44→20:56)
[2019-09-06] MEDS: OMEPRAZOLE 20 MG CAPSULE.DR GT SCH (05:44)
[2019-09-06] MEDS: BLOOD SUGAR DIAGNOSTIC 1 EACH STRIP IN SCH ×2 (05:44→17:18)
[2019-09-06 06:54] LABS: BASOPHILS % (AUTO) 0.3 % (0.0-2.0); EOSINOPHILS % (AUTO) 1.5 % (0.0-6.0); HEMATOCRIT 22 % (33-45); LYMPHOCYTES # (AUTO) 1.2 /CMM (0.8-4.8); LYMPHOCYTES % (AUTO) 6.7 % (20.0-44.0); MEAN CORPUSCULAR HGB CONC 31 g/dl (31.0-36.0); MEAN CORPUSCULAR VOLUME 95 fL (82-100); MONOCYTES # (AUTO) 1.9 /CMM (0.1-1.30); MONOCYTES % (AUTO) 10.5 % (2.0-12.0); NEUTROPHILS # (AUTO) 14.9 /CMM (1.8-8.9); PLATELET COUNT (AUTO) 387 /CMM (150-450); RED BLOOD CELL COUNT(AUTO) 2.31 MIL/uL (4.0-5.2); WHITE BLOOD COUNT (AUTO) 18.5 K/uL (4.3-11.0)
[2019-09-06 07:00] LABS: BILIRUBIN,TOTAL 0.2 mg/dL (0.2-1.0); CALCIUM, SERUM 9.4 mg/dL (8.5-10.1); CREATININE 3.2 mg/dL (0.6-1.3); MAGNESIUM 2.4 mg/dL (1.8-2.4); PHOSPHORUS 3.8 mg/dL (2.5-4.9); POTASSIUM 4.6 mmol/L (3.5-5.1); TOTAL PROTEIN, SERUM 8.8 g/dL (6.4-8.2)
[2019-09-06 07:04] LABS: ALBUMIN 1.4 g/dL (3.4-5.0)
[2019-09-06 07:27] LABS: HEMOGLOBIN 6.9 g/dL (11.5-14.8)
[2019-09-06 07:49] VITALS: BP 131/76
--- NOTE | 2019-09-06 08:00 | NUR ---
Left message for Dr Luis regarding Hgb 6.9 Hct 22 Albumin 1.4. Pt has dark reddish output from nephrostomy tube.
[2019-09-06] MEDS: HYDROGEN PEROXIDE 480 ML BOTTLE TP SCH ×2 (08:26→20:50)
--- NOTE | 2019-09-06 09:00 | NUR ---
Seen by Dr Felix. Notified him of Hgb 6.9 Hct 22. Received order to transfuse 1 unit of PRBC.
[2019-09-06] MEDS: Z GUARD REMEDY 2 OZ OINT TP SCH ×2 (09:09→20:50)
[2019-09-06] MEDS: VITS A AND D/WHITE PET/LANOLIN 5 GM PACKET TP SCH ×2 (09:09→20:50)
[2019-09-06] MEDS: FERROUS SULFATE - FOR SA ONLY 330 MG/7.5 ML UDC GT SCH ×2 (09:09→20:48)
[2019-09-06] MEDS: DOCUSATE SODIUM LIQ 100 MG/10 ML UDC GT SCH (09:09)
[2019-09-06] MEDS: LEVETIRACETAM SOL (5 ML) 100 MG/ML UDC GT SCH ×2 (09:09→20:47)
[2019-09-06] MEDS: ACIDOPHILUS/BULGARICUS 1 EACH TAB.CHEW GT SCH ×2 (09:09→17:01)
[2019-09-06] MEDS: SIMETHICONE SUSP 40 MG/0.6 ML BOTTLE GT SCH ×2 (09:10→20:49)
[2019-09-06] MEDS: SENNOSIDES 8.6 MG TABLET GT SCH ×2 (09:11→20:50)
[2019-09-06] MEDS: MULTIVIT W/MINERALS 1 TAB TABLET GT SCH (09:11)
[2019-09-06] MEDS: TRILEPTAL GT SCH ×2 (09:17→21:01)
[2019-09-06 09:45] LABS: BAND % (MANUAL) 6 % (0.0-5.0); LYMPHOCYTES % (MANUAL) 6 % (16-48); MONOCYTES % (MANUAL) 12 % (0-11.0); NEUTROPHILS % (MANUAL) 76 (42-76)
[2019-09-06] MEDS: IV NS 0.9% 1,000 ML IV PRN (11:50)
[2019-09-06 12:07] VITALS: BP 128/62
--- NOTE | 2019-09-06 12:14 | NUR ---
Started transfusing 1 unit of PRBC. T 99.5 F BP 128/62 HR 95 R 16. Pt sleeping but awakens with verbal and tactile stimuli.
[2019-09-06 12:32] VITALS: BP 121/59
--- NOTE | 2019-09-06 12:35 | NUR ---
No adverse reactions noted to blood transfusion. T 99.6 F BP 121/59 HR 91 R 16.
[2019-09-06 15:00] VITALS: BP 126/67
--- NOTE | 2019-09-06 15:00 | NUR ---
Completed transfusion of 1 unit PRBC. No adverse reactions noted.
--- NOTE | 2019-09-06 15:54 | NUR ---
SW attempted to facilitate video call with the patient's sister, Beckie Chu. The call was not answered. SW will continue to support family/patient video calls as needed.
--- NOTE | 2019-09-06 18:13 | NUR ---
Informed NAN Alvarez that pt's WBC 18.5, temp 99.9 F. Pt currently on Amikacin. NAN Neal ordered blood culture x 2, CXR, UA C & S. Notified pt's sister.
[2019-09-06 19:19] LABS: APPEARANCE,URINE TURBID (CLEAR); COLOR,URINE YELLOW (YELLOW)
[2019-09-06 19:20] LABS: BILIRUBIN,URINE NEGATIVE (NEGATIVE); BLOOD, URINE 1+ Ery/uL (NEGATIVE); KETONES,URINE NEGATIVE (NEGATIVE); PH,URINE 6.5 (5.0-8.0); PROTEIN,URINE 2+ mg/dl (NEGATIVE); UGLUCOSE NEGATIVE (NEGATIVE)
[2019-09-06 19:21] LABS: LEUKOCYTE ESTERASE ,URINE 3+ (NEGATIVE); NITRITE, URINE NEGATIVE (NEGATIVE); UROBILINOGEN,URINE 0.2 EU/dL (0.2)
[2019-09-06 19:22] LABS: BACTERIA,URINE Moderate /HPF (None Seen); MUCUS,URINE Few /LPF (None Seen); SQUAMOUS EPITHELIAL CELL,UR Few /HPF (None Seen); WBC,URINE TOO NUMEROUS TO COUN /HPF (0-3)
[2019-09-06 20:22] VITALS: BP 101/67
[2019-09-06] MEDS: ASCORBIC ACID 500 MG TABLET GT SCH (20:50)
[2019-09-06] MEDS: INSULIN GLARGINE, 100 UNIT/ML CARTRIDGE SQ SCH (22:00)
[2019-09-07] MEDS: ALBUTEROL FS 2.5 MG/3 ML VIAL.NEB NEB SCH ×4 (02:05→20:02)
[2019-09-07] MEDS: ACETAMINOPHEN 650 MG/20 ML UDC- SA PATIENTS-FEVER ONLY GT PRN (04:07)
[2019-09-07] MEDS: GABAPENTIN 250 MG/5 ML SOLUTION GT SCH ×3 (05:00→21:48)
[2019-09-07] MEDS: OMEPRAZOLE 20 MG CAPSULE.DR GT SCH (06:11)
[2019-09-07] MEDS: METOCLOPRAMIDE HCL 10 MG TABLET GT SCH ×4 (06:12→23:48)
[2019-09-07] MEDS: BLOOD SUGAR DIAGNOSTIC 1 EACH STRIP IN SCH ×2 (06:12→17:25)
[2019-09-07] MEDS: IV NS 0.9% 1,000 ML IV PRN ×2 (07:30→22:09)
[2019-09-07 07:50] VITALS: BP 138/69
--- NOTE | 2019-09-07 08:08 | NUR ---
RT NOTE PATIENT REC'D TRACH'D ON MECHANICAL VENT WITH CHARTED SETTINGS. VENT ALARMS ARE ON, SET, AND AUDIBLE. VENT PLUGGED INTO RED OUTLET. AMBU BAG AT BEDSIDE. NO SOB NOTED AT THIS TIME. WILL MONITOR T/O SHIFT. Addendum: 09/07/19 at 0809 by MARCO FRANCOIS RT Amended: Links added.
[2019-09-07] MEDS: LEVETIRACETAM SOL (5 ML) 100 MG/ML UDC GT SCH ×2 (08:35→21:48)
[2019-09-07] MEDS: TRILEPTAL GT SCH ×2 (08:35→21:48)
[2019-09-07] MEDS: ACIDOPHILUS/BULGARICUS 1 EACH TAB.CHEW GT SCH ×2 (08:35→17:25)
[2019-09-07] MEDS: SENNOSIDES 8.6 MG TABLET GT SCH ×2 (08:35→21:48)
[2019-09-07] MEDS: DOCUSATE SODIUM LIQ 100 MG/10 ML UDC GT SCH (08:35)
[2019-09-07] MEDS: FERROUS SULFATE - FOR SA ONLY 330 MG/7.5 ML UDC GT SCH ×2 (08:35→21:48)
[2019-09-07] MEDS: MULTIVIT W/MINERALS 1 TAB TABLET GT SCH (08:35)
[2019-09-07] MEDS: SIMETHICONE SUSP 40 MG/0.6 ML BOTTLE GT SCH ×2 (08:35→21:48)
[2019-09-07] MEDS: HYDROGEN PEROXIDE 480 ML BOTTLE TP SCH ×2 (09:00→20:02)
[2019-09-07] MEDS: Z GUARD REMEDY 2 OZ OINT TP SCH ×2 (09:00→21:49)
[2019-09-07] MEDS: VITS A AND D/WHITE PET/LANOLIN 5 GM PACKET TP SCH ×2 (09:00→21:49)
[2019-09-07] MEDS: AMIKACIN 300 MG in IV D5W 100 ML IV SCH (11:11)
[2019-09-07] MEDS: GLUCERNA 1.2 1,000 ML BOTTLE GT PRN (14:10)
--- NOTE | 2019-09-07 16:23 | NUR ---
STEPHEN called the patient's sister to verify that she has received the facetime attempts made today 09/07/2019 and yesterday 09/06/2019. Per Beckie, the calls have gone through, but she wasn't able to take the call. Beckie stated that she will call this SW when she is available to video chat. STEPHEN will facilitate patient/family video chat as needed.
[2019-09-07] MEDS: INSULIN REGULAR, HUMAN 100 UNIT/ML 3 ML VIAL SQ PRN (17:26)
--- NOTE | 2019-09-07 18:40 | NUR ---
Left a message to NAN Loredo regarding chest x-ray, preliminary urine culture result. Patient with low grade temp 99.0, 135/73. Spoke with Beckie informing her of the small open blister (0.4 x 0.4) noted in the patient's R inner thigh. Resident's sister asking if there is a follow-up CBC to be done to check Hbg. Dr. Kumar seen resident this AM and ordered follow-up labs in AM. Urine output from the nephrostomy with hematuria but not bloody, F/C draining yellow-jason in color. Appreciated the update.
[2019-09-07] MEDS ORDERED: CEFEPIME 1 GM in IV D5W 50 ML IV SCH (19:00)
[2019-09-07 19:42] VITALS: BP 131/63
--- NOTE | 2019-09-07 20:26 | NUR ---
Received an order from NAN Loredo to start Cefepime 1gm q 24 hrs and Zyvox 600mg via gt x 5 days per [facility] protocol for Pneumonia. will carried out. Beckie sister notified of new orders. Appreciative of the call.Spoke also to Doc [facility] pharmacist medications is not covered by insurance. Birdie DURHAM pharmacist notified.
[2019-09-07] MEDS: ASCORBIC ACID 500 MG TABLET GT SCH (21:48)
[2019-09-07] MEDS: LINEZOLID 600 MG TABLET GT SCH (21:48)
[2019-09-07] MEDS ORDERED: CEFEPIME 2 GM in IV D5W 100 ML IV SCH (22:00)
[2019-09-07] MEDS: INSULIN GLARGINE, 100 UNIT/ML CARTRIDGE SQ SCH (22:05)
[2019-09-08] MEDS: ALBUTEROL FS 2.5 MG/3 ML VIAL.NEB NEB SCH ×3 (01:41→13:00)
[2019-09-08] MEDS: BLOOD SUGAR DIAGNOSTIC 1 EACH STRIP IN SCH ×2 (05:25→18:07)
[2019-09-08] MEDS: GABAPENTIN 250 MG/5 ML SOLUTION GT SCH ×2 (05:25→13:11)
[2019-09-08] MEDS: METOCLOPRAMIDE HCL 10 MG TABLET GT SCH ×3 (05:25→18:06)
[2019-09-08] MEDS: OMEPRAZOLE 20 MG CAPSULE.DR GT SCH (05:25)
[2019-09-08] MEDS: INSULIN REGULAR, HUMAN 100 UNIT/ML 3 ML VIAL SQ PRN (05:26)
[2019-09-08 06:28] LABS: BASOPHILS # (AUTO) 0.1 /CMM (0.0-0.2); BASOPHILS % (AUTO) 0.4 % (0.0-2.0); EOSINOPHILS % (AUTO) 1.4 % (0.0-6.0); HEMATOCRIT 25 % (33-45); HEMOGLOBIN 7.9 g/dL (11.5-14.8); LYMPHOCYTES # (AUTO) 1.3 /CMM (0.8-4.8); LYMPHOCYTES % (AUTO) 8.1 % (20.0-44.0); MEAN CORPUSCULAR HGB CONC 32 g/dl (31.0-36.0); MEAN CORPUSCULAR VOLUME 95 fL (82-100); MONOCYTES # (AUTO) 1.7 /CMM (0.1-1.30); MONOCYTES % (AUTO) 10.7 % (2.0-12.0); NEUTROPHILS # (AUTO) 12.9 /CMM (1.8-8.9); NEUTROPHILS % (AUTO) 79.4 % (43.0-81.0); PLATELET COUNT (AUTO) 395 /CMM (150-450); RED BLOOD CELL COUNT(AUTO) 2.64 MIL/uL (4.0-5.2); WHITE BLOOD COUNT (AUTO) 16.2 K/uL (4.3-11.0)
[2019-09-08] MEDS: GLUCERNA 1.2 1,000 ML BOTTLE GT PRN (06:57)
[2019-09-08 06:59] LABS: BILIRUBIN,TOTAL 0.2 mg/dL (0.2-1.0); CALCIUM, SERUM 9.4 mg/dL (8.5-10.1); CREATININE 2.8 mg/dL (0.6-1.3); MAGNESIUM 2.3 mg/dL (1.8-2.4); PHOSPHORUS 3.1 mg/dL (2.5-4.9); TOTAL PROTEIN, SERUM 8.5 g/dL (6.4-8.2)
[2019-09-08 07:07] LABS: ALBUMIN 1.2 g/dL (3.4-5.0)
[2019-09-08 07:32] VITALS: BP 138/65
[2019-09-08] MEDS: HYDROGEN PEROXIDE 480 ML BOTTLE TP SCH (08:13)
[2019-09-08] MEDS: ACIDOPHILUS/BULGARICUS 1 EACH TAB.CHEW GT SCH ×2 (09:49→16:16)
[2019-09-08] MEDS: MULTIVIT W/MINERALS 1 TAB TABLET GT SCH (09:49)
[2019-09-08] MEDS: FERROUS SULFATE - FOR SA ONLY 330 MG/7.5 ML UDC GT SCH (09:49)
[2019-09-08] MEDS: SENNOSIDES 8.6 MG TABLET GT SCH (09:49)
[2019-09-08] MEDS: Z GUARD REMEDY 2 OZ OINT TP SCH (09:49)
[2019-09-08] MEDS: VITS A AND D/WHITE PET/LANOLIN 5 GM PACKET TP SCH (09:49)
[2019-09-08] MEDS: SIMETHICONE SUSP 40 MG/0.6 ML BOTTLE GT SCH (09:49)
[2019-09-08] MEDS: DOCUSATE SODIUM LIQ 100 MG/10 ML UDC GT SCH (09:49)
[2019-09-08] MEDS: LEVETIRACETAM SOL (5 ML) 100 MG/ML UDC GT SCH (09:49)
[2019-09-08] MEDS: TRILEPTAL GT SCH (09:49)
[2019-09-08] MEDS: LINEZOLID 600 MG TABLET GT SCH (09:49)
--- NOTE | 2019-09-08 12:30 | NUR ---
Pt's midline was found out earlier this morning. Attempted to insert a peripheral line but pt has poor venous access. DIRECTOR OF CULTURE Anna Vargas ordered midline catheter placement. Pt's sister Beckie aware and gave consent. Notified nursing precipitator supervisor.
--- NOTE | 2019-09-08 16:48 | NUR ---
Seen by WEATHER ANALYST Anna Vargas. Asked Dr Felix earlier today to view pt's CXR. NAN Vargas followed up with Dr Felix. Dr Felix called and spoke with charge nurse. He said he does not think pt had Covid-19, but there is no way he can say definitively if pt has Covid-19 or not unless pt is tested. He said the turnaround for the test is usually 5 days and he is not comfortable with the pt being in [facility] while it is being ruled out. Dr Felix spoke with admin to transfer pt directly to [facility]. Nursing foundry supervisor said pt can be transferred to Room [address]. Notified [address] Luis.
[2019-09-08] MEDS ORDERED: NORM10004 IV (17:02)
[2019-09-08] MEDS ORDERED: CEFE2VIA3 IV (17:02)
[2019-09-08] MEDS ORDERED: LINE600T12 GT (17:02)
[2019-09-08] MEDS ORDERED: MAG30ORA GT (17:02)
[2019-09-08] MEDS ORDERED: ALLA266C2 TP (17:02)
[2019-09-08] MEDS ORDERED: AMIK250V8 IV (17:02)
--- NOTE | 2019-09-08 18:18 | NUR ---
Called pt's sister Beckie. Informed her that pt is being transferred to [facility] Room 104 to rule out Covid-19. Beckie thankful that pt is being tested for it.
--- NOTE | 2019-09-09 10:34 | NUR ---
Family Check-in: This SW called the patient's sister/conservator Beckie Chu [phone] to check-in with her following the news that her patient was transferred to [facility] to rule out COVID-19. The call went to voicemail and SW left call back number. SW will continue efforts to provide support to the patient's family.
--- NOTE | 2019-09-15 10:51 | NUR ---
7 Day Bed Hold: This SW called the patient's sister/conservator Beckie Chu [phone] to notify her that the 7 day bed hold was up and informed her that she can pay our of pocket for the bed hold $1,112.20. Per Beckie, she cannot pay out of pocket for the bed hold. Noted.
[2019-09-20] MEDS ORDERED: MERO500V21 IV (11:03)
[2019-09-20] MEDS ORDERED: Linezolid GT (11:03)
== END 2019-09-08 14:00 | disposition short-term general hospital (02) | DRG 130 ==
LOC: SA 00:01 → UNDOLOA 08-12 13:00 → TELE-TD 09-08 16:44 → SA 09-08 16:44
PROVIDERS: ADMIT Internal Medicine; ATTEND Internal Medicine
PROC: 5A1955Z Respiratory Ventilation, Greater than 96 Consecutive Hours (ICD-10-PCS; principal; 2019-06-08)
PROC: 30233N1 Transfusion of Nonautologous Red Blood Cells into Peripheral Vein, Percutaneous Approach (ICD-10-PCS; 2019-07-24)
PROC: 05HF33Z Insertion of Infusion Device into Left Cephalic Vein, Percutaneous Approach (ICD-10-PCS; 2019-07-27)
PROC: 05H933Z Insertion of Infusion Device into Right Brachial Vein, Percutaneous Approach (ICD-10-PCS; 2019-08-29)
DX: J96.11 Chronic respiratory failure with hypoxia (principal); N17.0 Acute kidney failure with tubular necrosis; G93.1 Anoxic brain damage, not elsewhere classified; J18.9 Pneumonia, unspecified organism; I13.0 Hypertensive heart and chronic kidney disease with heart failure and stage 1 through stage 4 chronic kidney disease, or unspecified chronic kidney disease; E11.22 Type 2 diabetes mellitus with diabetic chronic kidney disease; I50.9 Heart failure, unspecified; K56.7 Ileus, unspecified; Z99.11 Dependence on respirator [ventilator] status; Z93.0 Tracheostomy status; R13.10 Dysphagia, unspecified; N18.4 Chronic kidney disease, stage 4 (severe); I25.10 Atherosclerotic heart disease of native coronary artery without angina pectoris; D63.8 Anemia in other chronic diseases classified elsewhere; G40.909 Epilepsy, unspecified, not intractable, without status epilepticus; G62.9 Polyneuropathy, unspecified; K21.9 Gastro-esophageal reflux disease without esophagitis; Z74.01 Bed confinement status; Z87.440 Personal history of urinary (tract) infections; D53.9 Nutritional anemia, unspecified; E87.6 Hypokalemia; L60.3 Nail dystrophy; Z79.4 Long term (current) use of insulin; N28.89 Other specified disorders of kidney and ureter; Z93.6 Other artificial openings of urinary tract status; Z79.51 Long term (current) use of inhaled steroids; Z79.899 Other long term (current) drug therapy; Y95 Nosocomial condition; N20.0 Calculus of kidney; N39.0 Urinary tract infection, site not specified; Z93.1 Gastrostomy status; M62.472 Contracture of muscle, left ankle and foot; M62.471 Contracture of muscle, right ankle and foot; Z74.09 Other reduced mobility; L97.529 Non-pressure chronic ulcer of other part of left foot with unspecified severity; Z22.322 Carrier or suspected carrier of Methicillin resistant Staphylococcus aureus; Z87.820 Personal history of traumatic brain injury
CPT/HCPCS: 31720; 36410; 36415; 36600; 71045-TC; 74018; 75989; 75989-TC; 76770-TC; 80048-TC; 80053-TC; 80150; 80177; 81000-TC; 82542; 82550-TC; 82565-TC; 82570-TC; 82803-TC; 82962-TC; 83540-TC; 83735-TC; 83970; 84100-TC; 84155; 84155-TC; 84165; 84300-TC; 84520-TC; 84702-TC; 85025-TC; 85610-TC; 85730-TC; 86580-TC; 86850-TC; 86921-TC; 87040-TC; 87081-TC; 87086-TC; 87186-TC; 94002-TC; 94003-TC; 94760-TC; 94762-TC; 94799-TC; 99082-TC; A4217; A4623; A6248; A6253; A7526; J0278; J0692; J0713; J0885; J1644; J1815; J1885; J1953; J2250; J2310; J2916; J3010; J3490; J7030; J7060; J8597; L8501; P9016-BL; Q0162; Q9963

== ENCOUNTER 2019-08-05 08:57 | Outpatient (CLI) | payer MEDICAID ==
[2019-08-05] MEDS ORDERED: FENTANYL PF 250MCG/5ML AMPUL IV ONE (11:00)
[2019-08-05] MEDS ORDERED: MIDAZOLAM HCL 5MG/ML VIAL 25 MG/5 ML VIAL IV ONE (11:00)
[2019-08-05] MEDS ORDERED: NALOXONE PREFILLED SYRINGE 2 MG/2 ML SYRINGE IV ONE (11:00)
== END 2019-08-05 23:59 | disposition home or self-care (01) ==
LOC: RAD 08:57
PROVIDERS: ATTEND Internal Medicine
DX: Z46.6 Encounter for fitting and adjustment of urinary device (principal); Z96.0 Presence of urogenital implants
CPT/HCPCS: 75989-TC; J2250; J2310; J3010

== ENCOUNTER 2019-08-09 11:52 | Inpatient (IN) | payer MEDICAID ==
[~2019-08-09] VITALS: Ht 167.6 cm; Wt 76.7 kg
--- NOTE | 2019-08-09 11:54 | NUR ---
RT NOTE: ASSISTED WITH TRASPORTING PATIENT TO ER. PATIENT HAS SHILEY #8 XL TRACH ON LTV VENT. VENT IS CONNECTED TO RED OUTLET. PATIENT'S RESPIRATIONS ARE EVEN AND UNLABORED. AMBU BAG AT [facility].
--- NOTE | 2019-08-09 11:56 | NUR ---
BIB Subacute Personnel for low H/H. 1st unit PRBC infusing 2nd unit ready for infusion needs CT abdomen; PT TO BED 5, PLACED ON MONITOR, VSS, NAD NOTED, PENDING MDEVAL
[2019-08-09] MEDS ORDERED: EPOE1VIA6 SQ (12:42)
[2019-08-09] MEDS ORDERED: OMEP20TA5 GT (12:46)
[2019-08-09] MEDS ORDERED: SENN-18 GT (12:52)
[2019-08-09] MEDS ORDERED: LORA-259 IVP (12:52)
[2019-08-09] MEDS ORDERED: ONDA-97 GT (12:52)
[2019-08-09 12:54] LABS: BASOPHILS % (AUTO) 0.3 % (0.0-2.0); EOSINOPHILS % (AUTO) 2.2 % (0.0-6.0); LYMPHOCYTES % (AUTO) 13.8 % (20.0-44.0); MEAN CORPUSCULAR HGB CONC 34 g/dl (31.0-36.0); MEAN CORPUSCULAR VOLUME 97 fL (82-100); MONOCYTES # (AUTO) 1.7 /CMM (0.1-1.30); MONOCYTES % (AUTO) 11.6 % (2.0-12.0); NEUTROPHILS # (AUTO) 10.7 /CMM (1.8-8.9); NEUTROPHILS % (AUTO) 72.1 % (43.0-81.0); PLATELET COUNT (AUTO) 262 /CMM (150-450); WHITE BLOOD COUNT (AUTO) 14.8 K/uL (4.3-11.0)
[2019-08-09 12:55] LABS: RED BLOOD CELL COUNT(AUTO) 1.65 MIL/uL (4.0-5.2)
[2019-08-09 12:56] LABS: HEMATOCRIT 16 % (33-45); HEMOGLOBIN 5.5 g/dL (11.5-14.8)
[2019-08-09 13:02] LABS: CALCIUM, SERUM 9.9 mg/dL (8.5-10.1); CREATININE 4.6 mg/dL (0.6-1.3); POTASSIUM 4.6 mmol/L (3.5-5.1)
[2019-08-09 13:07] LABS: BILIRUBIN,TOTAL 0.2 mg/dL (0.2-1.0)
--- NOTE | 2019-08-09 13:07 | NUR ---
CALLED JENNIFER ITS KAYESTEIN
[2019-08-09 13:08] LABS: ALBUMIN 2.2 g/dL (3.4-5.0); BILIRUBIN,DIRECT 0.1 mg/dL (0.0-0.2); TOTAL PROTEIN, SERUM 8.6 g/dL (6.4-8.2)
[2019-08-09 13:31] LABS: EOSINOPHILS % (MANUAL) 4 % (0-4); LYMPHOCYTES % (MANUAL) 9 % (16-48); MONOCYTES % (MANUAL) 14 % (0-11.0); NEUTROPHILS % (MANUAL) 73 (42-76)
--- NOTE | 2019-08-09 14:00 | NUR ---
2ND BLOOD PRBC STARTED AT 1400; COSIGNED WITH BRIANNA LAI; SEE NOTES
--- NOTE | 2019-08-09 14:50 | NUR ---
PAGED JENNIFER, DUKE ADAM
--- NOTE | 2019-08-09 15:35 | NUR ---
REPORT GIVEN TO HERNAN REED FOR WHIT PT WILL BE TRANSPORTED TO [facility]
--- NOTE | 2019-08-09 15:55 | NUR ---
PT TRANSPORETD TO 1ST FLOOR
[2019-08-09 16:00] VITALS: BP 144/78
[2019-08-09] MEDS ORDERED: ONDANSETRON HCL/PF 4 MG/2 ML VIAL IVP PRN (16:00)
[2019-08-09] MEDS ORDERED: MAGNESIUM HYDROXIDE 30 ML UDC PO PRN (16:00)
[2019-08-09] MEDS ORDERED: ACETAMINOPHEN 325 MG TABLET PO PRN (16:00)
[2019-08-09] MEDS ORDERED: MAG HYDROX/AL HYDROX/SIMETH 30 ML UDC PO PRN (16:00)
[2019-08-09] MEDS ORDERED: Z GUARD REMEDY 2 OZ OINT TP PRN (16:00)
--- NOTE | 2019-08-09 16:00 | NUR ---
[facility]/RN NOTES RECEIVED PATIENT FROM ER ACCOMPANIED BY ER NURSE. PATIENT WAS TRANSFERRED IN BED. SKIN ASSESSMENT WAS DONE, NOTED WITH SACRAL WOUND. PHOTOS WAS TAKEN AND WAS PLACED IN THE CHART. PATIENT NOTED WITH LAMIN MIDLINE. INTACT AND PATENT. FLUSHING WELL. NO S/S OF INFECTION OR INFILTRATION. GT INTACT WELL. ALL NEEDS ANTICIPATED. CALL LIGHT WITHIN REACHED. BED LOCKED AND IN LOWEST POSITION. SAFETY MAINTAINED. WILL CONTINUE TO MONITOR CLOSELY.
[2019-08-09] MEDS ORDERED: FEE PK DOSING 1 MIN EA MC ONE (16:32)
[2019-08-09] MEDS ORDERED: VANCOMYCIN 1 GM in IV D5W 250 ML IV ONE (16:45)
[2019-08-09] MEDS: IV NS 0.9% 1,000 ML IV PRN (16:58)
[2019-08-09] MEDS: PIPERACILLIN /TAZOBACTAM 2.25 G in IV D5W 50 ML IV SCH ×2 (17:13→22:37)
[2019-08-09 17:19] LABS: HEMOGLOBIN 6.5 g/dL (11.5-14.8)
[2019-08-09] MEDS: SOD FERRIC GLUC 125 MG in IV NS 0.9% 100 ML IV SCH (17:50)
[2019-08-09] MEDS ORDERED: PIPERACILLIN /TAZOBACTAM 3.375 G in IV D5W 50 ML IV SCH (18:00)
[2019-08-09] MEDS ORDERED: GLUCERNA 1.2 1,000 ML BOTTLE GT PRN (18:30)
--- NOTE | 2019-08-09 18:30 | NUR ---
[facility]/RN NOTES RELAYED LAB RESULTS TO NAN ADAM WITH ORDERS TO GIVE 2 MORE UNITS OF BLOOD AND TO DO H/H POST TRANSFUSION. ALL ORDERS NOTED AND CARRIED OUT. WILL CONTINUE TO MONITOR CLOSELY.
--- NOTE | 2019-08-09 19:10 | NUR ---
[facility] RN OPENING NOTE RECEIVED PATIENT IN BED WITH HOB ELEVATED. BREATHING EVEN AND NON LABORED. ON VENT. PATIENT IS NON VERBAL. GTF ON AND RUNNING AT 65 MLS/HR. IV SITE ON LEFT UPPER ARM. PATIENT HAS DAVIDSON CATH. URINE IS CLEAR AND YELLOW IN COLOR. PATIENT ALSO HAS NEPHROSTOMY DRAIN WITH RED COLOR DRAINAGE. IN NO APPARENT DISTRESS NOTED AT THIS TIME. WILL CONTINUE TO MONITOR.
--- NOTE | 2019-08-09 19:35 | NUR ---
[facility]/RN CLOSING NOTES PATIENT CONTINUES TO REMAIN IN STABLE CONDITION THROUGHOUT THE SHIFT. PROVIDED COMFORT AND SAFETY. PATIENT ABLE TO TOLERATE FEEDING AND MEDS WELL. NO ADVERSE REACTIONS AT THIS TIME. IV ACCESS INTACT AND PATENT. FLUSHING WELL. ENDORSED TO PM NURSE REGERDING THE 2UNITS BLOOD TRANSFUSION AND TO DO H/H POST TRANSFUSING. ALL NEEDS ANTICIPATED. CALL LIGHT WITHIN REACHED. BED LOCKED AND IN LOWEST POSITION. SAFETY MAINTAINED. WILL CONTINUE TO MONITOR CLOSELY. ENDORSED TO PM NURSE FOR WIHT.
[2019-08-09 20:00] VITALS: BP_SYST 108; BP_SYST 98; BP_DIAS 55; BP_DIAS 64
--- NOTE | 2019-08-09 20:44 | NUR ---
RT NOTE Pt rec'd trached on [facility] vent on AC mode. Pt shows no signs of resp distress or sob. Trach is patent and secured. Pt sx'd for thick mod amt of pale yellow secretions. Alarms are set and audible. Vent plugged into red outlet. Ambu bag bedside. Will continue to monitor. Addendum: 08/09/19 at 2046 by LADAN WICK RT Amended: Links added.
[2019-08-10] VITALS (19 sets, daily range): BP systolic 100–145; BP diastolic 44–74
[2019-08-10] MEDS: PIPERACILLIN /TAZOBACTAM 2.25 G in IV D5W 50 ML IV SCH ×4 (05:14→22:06)
[2019-08-10] MEDS ORDERED: PANTOPRAZOLE 40 MG TABLET.DR PO SCH (07:30)
--- NOTE | 2019-08-10 07:30 | NUR ---
RN NOTE PT AOX0, OPENS EYES, NON VERBAL, VS STABLE, ON TELEMETRY SR 80'S, ON MECH VENT, TOLERATES WELL, NON LABORED BREATHING, LEFT UPPER ARM MIDLINE, NO BLOOD RETURN. IV NS AT 75 ML/HR, NO S/S OF INFILTRATION, ABDOMEN IS VERY DISTENDED, BOWEL SOUNDS PRESENT, PASSES FLATUS, LAST BM X1 OVERNIGHT, GTUBE RUNNING FEEDING GLUCERNA AT 65ML/HR, NO RESIDUAL. ARMS AND LEGS EDEMATOUS, LEFT NEPHROSTOMY TUBE INTACT, DRAINS BLOODY URINE. DAVIDSON IN PLACE DRAINS YELLOW URINE WITH SEDIMENTS, SAFETY MEASEURES IN PLACE, ISOLATION (esbl, URINE AND MRSA NARES) PRECAUTIONS OBSERVED. WILL CONTINUE TO MONITOR AND FOLLOW UP WITH MED RECON, URINE AND RESPIRATORY CULTURES.
--- NOTE | 2019-08-10 07:39 | NUR ---
RN CLOSING NOTE PATIENT IS IN BED RESTING. NON VERBAL. ON VENT. ON GTF RUNNING AT 65 MLS/HR AND TOLERATED WELL. TRANSFUSED PATIENT WITH 2 UNITS PRBC, WITH NO ADVERSE REACTION NOTED. BLOOD ID BAND LOCATED IN PATIENT'S CHART. ALL DUE MEDS MEDS GIVEN ORDERED AND TOLERATED WELL. PATIENT KEPT CLEAN, DRY, AND COMFORTABLE. ENDORSED TO AM SHIFT RN FOR CONTINUATION OF CARE.
[2019-08-10 08:17] LABS: BASOPHILS % (AUTO) 0.3 % (0.0-2.0); HEMATOCRIT 29 % (33-45); HEMOGLOBIN 9.6 g/dL (11.5-14.8); LYMPHOCYTES # (AUTO) 0.7 /CMM (0.8-4.8); LYMPHOCYTES % (AUTO) 5.7 % (20.0-44.0); MEAN CORPUSCULAR HGB CONC 33 g/dl (31.0-36.0); MEAN CORPUSCULAR VOLUME 90 fL (82-100); MONOCYTES # (AUTO) 0.8 /CMM (0.1-1.30); PLATELET COUNT (AUTO) 278 /CMM (150-450); RED BLOOD CELL COUNT(AUTO) 3.23 MIL/uL (4.0-5.2); WHITE BLOOD COUNT (AUTO) 11.8 K/uL (4.3-11.0)
[2019-08-10 08:34] LABS: CALCIUM, SERUM 9.7 mg/dL (8.5-10.1); CREATININE 4.3 mg/dL (0.6-1.3); MAGNESIUM 3.3 mg/dL (1.8-2.4); PHOSPHORUS 6.4 mg/dL (2.5-4.9); POTASSIUM 4.4 mmol/L (3.5-5.1)
[2019-08-10 08:49] LABS: THYROID STIMULATING HORMONE 1.952 uIU/mL (0.358-3.74)
[2019-08-10] MEDS: HYDROGEN PEROXIDE 480 ML BOTTLE TP SCH ×2 (09:14→18:08)
--- NOTE | 2019-08-10 09:19 | NUR ---
WOUND CARE CONSULT: PT PRESENTS WITH SACRAL SCARRING, RASH TO BUTTOCKS WITH INCONTINENCE ASSOCIATED SKIN DAMAGE WELL LEFT NEPHROSTOMY TUBE WITH SMALL AMOUNT OF PINK/RED DRAINAGE IN DRAINAGE BAG, PRESENT ON ADMISSION. RECOMMENDATIONS MADE FOR SKIN CARE AND PROTECTION. DISCUSSED WITH NURSING STAFF. PT ON FIRST STEP MEGAN [facility]. WILL SEE PRN. TAYLOR IN AGREEMENT WITH PLAN OF CARE. Addendum: 08/10/19 at 0921 by BRI MICHAUD WNDNU Amended: Links added.
[2019-08-10] MEDS ORDERED: HYDROGEN PEROXIDE 480 ML BOTTLE TP PRN (09:30)
[2019-08-10] MEDS ORDERED: LORAZEPAM INJ 2 MG/ML VIAL IVP PRN (09:30)
[2019-08-10] MEDS ORDERED: LORAZEPAM 1 MG TABLET GT PRN (09:30)
[2019-08-10] MEDS ORDERED: MAGNESIUM HYDROXIDE 30 ML UDC GT PRN (09:30)
[2019-08-10] MEDS ORDERED: DEXTROSE 50%-WATER 50 ML DISP.SYRIN IV PRN (09:30)
[2019-08-10] MEDS ORDERED: ACETAMINOPHEN 650 MG/20.3 ML UDC GT PRN ×2 (09:30)
[2019-08-10] MEDS ORDERED: BISACODYL SUPP (10 MG) 10 MG/SUPP.RECT SUPP.RECT RC PRN (09:30)
[2019-08-10] MEDS ORDERED: ONDANSETRON 4 MG TAB.RAPDIS GT PRN (09:30)
[2019-08-10] MEDS ORDERED: FERROUS SULFATE - FOR SA ONLY 330 MG/7.5 ML UDC GT SCH (09:32)
[2019-08-10 09:57] LABS: APPEARANCE,URINE CLOUDY (CLEAR); BILIRUBIN,URINE NEGATIVE (NEGATIVE); BLOOD, URINE MODERATE Ery/uL (NEGATIVE); COLOR,URINE YELLOW (YELLOW); KETONES,URINE NEGATIVE (NEGATIVE); LEUKOCYTE ESTERASE ,URINE LARGE (NEGATIVE); NITRITE, URINE NEGATIVE (NEGATIVE); PROTEIN,URINE 100 mg/dl (NEGATIVE); UGLUCOSE NEGATIVE (NEGATIVE); UROBILINOGEN,URINE 0.2 EU/dL (0.2)
[2019-08-10] MEDS: OXCARBAZEPINE 150 MG TABLET GT SCH ×2 (10:11→20:38)
[2019-08-10] MEDS: ACIDOPHILUS/BULGARICUS 1 EACH TAB.CHEW GT SCH ×2 (10:11→17:46)
[2019-08-10] MEDS: MULTIVIT W/MINERALS 1 TAB TABLET GT SCH (10:11)
[2019-08-10] MEDS: ASCORBIC ACID 500 MG TABLET GT SCH ×2 (10:11→20:38)
[2019-08-10] MEDS: FERROUS SULFATE UDC 300 MG/5 ML UDC GT SCH ×2 (10:11→17:46)
[2019-08-10] MEDS: PANTOPRAZOLE 40 MG/PACK PACK GT SCH (10:12)
[2019-08-10] MEDS: LEVETIRACETAM SOL (5 ML) 100 MG/ML UDC GT SCH ×2 (10:12→20:37)
[2019-08-10] MEDS: DOCUSATE SODIUM LIQ 100 MG/10 ML UDC GT SCH (10:12)
[2019-08-10] MEDS: BLOOD SUGAR DIAGNOSTIC 1 EACH STRIP IN SCH ×2 (10:13→21:29)
[2019-08-10 11:24] LABS: BACTERIA,URINE Few /HPF (None Seen); SQUAMOUS EPITHELIAL CELL,UR Few /HPF (None Seen); WBC,URINE TOO NUMEROUS TO COUN /HPF (0-3)
[2019-08-10] MEDS: METOCLOPRAMIDE HCL 10 MG TABLET GT SCH ×2 (11:57→17:46)
[2019-08-10] MEDS ORDERED: VANCOMYCIN 1 GM in IV D5W 250 ML IV SCH (12:00)
[2019-08-10] MEDS: GLUCERNA 1.2 1,000 ML BOTTLE GT PRN (12:12)
[2019-08-10] MEDS: GABAPENTIN 300 MG CAPSULE GT SCH ×2 (12:14→20:37)
[2019-08-10] MEDS ORDERED: ALBUTEROL FS 2.5 MG/3 ML VIAL.NEB NEB SCH (13:30)
[2019-08-10] MEDS: ALBUTEROL FS 2.5 MG/3 ML VIAL.NEB NEB SCH ×2 (14:34→20:01)
[2019-08-10 15:42] LABS: BASOPHILS % (AUTO) 0.4 % (0.0-2.0); EOSINOPHILS % (AUTO) 2.3 % (0.0-6.0); HEMATOCRIT 28 % (33-45); HEMOGLOBIN 9.5 g/dL (11.5-14.8); LYMPHOCYTES # (AUTO) 1.2 /CMM (0.8-4.8); LYMPHOCYTES % (AUTO) 11.1 % (20.0-44.0); MEAN CORPUSCULAR HGB CONC 34 g/dl (31.0-36.0); MEAN CORPUSCULAR VOLUME 90 fL (82-100); MONOCYTES # (AUTO) 0.8 /CMM (0.1-1.30); MONOCYTES % (AUTO) 7.6 % (2.0-12.0); NEUTROPHILS # (AUTO) 8.8 /CMM (1.8-8.9); NEUTROPHILS % (AUTO) 78.6 % (43.0-81.0); PLATELET COUNT (AUTO) 262 /CMM (150-450); RED BLOOD CELL COUNT(AUTO) 3.13 MIL/uL (4.0-5.2); WHITE BLOOD COUNT (AUTO) 11.2 K/uL (4.3-11.0)
[2019-08-10] MEDS: SOD FERRIC GLUC 125 MG in IV NS 0.9% 100 ML IV SCH (16:33)
[2019-08-10] MEDS: IV NS 0.9% 1,000 ML IV PRN (16:33)
[2019-08-10] MEDS: CLOTRIMAZOLE 1% 15 GM TUBE TP SCH (17:50)
--- NOTE | 2019-08-10 19:30 | NUR ---
STRATEGY INTERN NOTE RECEIVED PATIENT ON CONTACT ISOLATION FOR ESBL URINE. PATIENT IN BED. PATIENT IS NONVERBAL, OPENS EYE, NODES HEAD. PATIENT ON VENTILATOR. SETTINGS INCLUDE SHILEY #8, AC 16, TV 550, FIO2 30%, PEEP5. EXTERNAL TELE MONITOR READS SINUS RHYTHM HR 75. IN NO APPARENT DISTRESS. NO S/S OF PAIN AT THIS TIME. IV ACCESS IN LAMIN MIDLINE RUNNING NS@75ML/HR. GTUBE IS PRESENT, ASPIRATED, RESIDUAL 10ML, FLUSHED WITH 60ML WITH NO RESISTANCE, GLUCERNA 1.2 RUNNING @65ML/HR. DAVIDSON CATHETER IS PRESENT, DRAINING TO GRAVITY, URINE IS YELLOW. LEFT NEPHROSTOMY TUBE IS PRESENT, DRAINING TO GRAVITY, OUTPUT IS HEMATURIA. BED IS LOW AND LOCKED, HOB IN SEMI FOWLERS, SIDE RIALS UP X2, BED ALARM ON,. EXTREMITIES OFFLOADED. CALL LIGHT WITHIN REACH. WILL CONTINUE TO MONITOR.
--- NOTE | 2019-08-10 20:07 | NUR ---
RT NOTE PT RECEIVED TRACHED ON MECHANICAL VENTILATION. AMBU BAG @ BEDSIDE. TX GIVEN, NO ADVERSE REACTIONS NOTED. SX DONE, TRACH SECURED AND PATENT. ALARMS ON AND AUDIBLE. NO DISTRESS NOTED AT THIS TIME. WILL CONTINUE TO MONITOR T/O SHIFT. CONT. PULSE OX CONNECTED. Addendum: 08/10/19 at 2009 by BRIEN NEAL RT Amended: Links added.
[2019-08-10] MEDS: VITS A AND D/WHITE PET/LANOLIN 5 GM PACKET TP SCH (20:38)
[2019-08-10] MEDS: Z GUARD REMEDY 4 OZ OINT TP SCH (20:38)
[2019-08-10] MEDS: SENNOSIDES 8.6 MG TABLET GT SCH (20:38)
[2019-08-10] MEDS: INSULIN REGULAR, HUMAN 100 UNIT/ML 3 ML VIAL SQ PRN (21:41)
[2019-08-10] MEDS: INSULIN GLARGINE, 100 UNIT/ML CARTRIDGE SQ SCH (21:44)
[2019-08-11] VITALS: BP 109/60
--- NOTE | 2019-08-11 | NUR ---
COMPUTER PROGRAMMER NOTE STOPPED GTUBE FEEDING ORDERED FOR 0000. WILL RESTART AT 0600. WILL CONTINUE TO MONITOR.
[2019-08-11] MEDS: ALBUTEROL FS 2.5 MG/3 ML VIAL.NEB NEB SCH ×4 (01:28→20:10)
[2019-08-11 04:00] VITALS: BP 122/65
[2019-08-11] MEDS: PIPERACILLIN /TAZOBACTAM 2.25 G in IV D5W 50 ML IV SCH ×4 (04:16→22:03)
[2019-08-11] MEDS: GABAPENTIN 300 MG CAPSULE GT SCH ×3 (04:16→21:36)
[2019-08-11] MEDS: IV NS 0.9% 1,000 ML IV PRN (05:40)
[2019-08-11] MEDS ORDERED: OMEPRAZOLE 20 MG CAPSULE.DR GT SCH (06:00)
[2019-08-11] MEDS ORDERED: PANTOPRAZOLE 40 MG/PACK PACK GT SCH (06:00)
[2019-08-11 06:12] LABS: BASOPHILS % (AUTO) 0.3 % (0.0-2.0); EOSINOPHILS % (AUTO) 2.6 % (0.0-6.0); HEMATOCRIT 24 % (33-45); HEMOGLOBIN 8.2 g/dL (11.5-14.8); LYMPHOCYTES # (AUTO) 1.2 /CMM (0.8-4.8); LYMPHOCYTES % (AUTO) 9.9 % (20.0-44.0); MEAN CORPUSCULAR HGB CONC 34 g/dl (31.0-36.0); MEAN CORPUSCULAR VOLUME 91 fL (82-100); MONOCYTES # (AUTO) 1.2 /CMM (0.1-1.30); MONOCYTES % (AUTO) 9.5 % (2.0-12.0); NEUTROPHILS # (AUTO) 9.5 /CMM (1.8-8.9); NEUTROPHILS % (AUTO) 77.7 % (43.0-81.0); PLATELET COUNT (AUTO) 258 /CMM (150-450); RED BLOOD CELL COUNT(AUTO) 2.69 MIL/uL (4.0-5.2); WHITE BLOOD COUNT (AUTO) 12.3 K/uL (4.3-11.0)
[2019-08-11] MEDS: METOCLOPRAMIDE HCL 10 MG TABLET GT SCH ×4 (06:34→17:15)
--- NOTE | 2019-08-11 06:38 | NUR ---
LUMP INSPECTOR CLOSING NOTE PATIENT REMAINS ON CONTACT ISOLATION FOR ESBL URINE. PATIENT IN BED. PATIENT REMAINS NONVERBAL, OPENS EYE, NODES HEAD. PATIENT REMAINS ON VENTILATOR. SETTINGS INCLUDE SHILEY #8, AC 16, TV 550, FIO2 30%, PEEP5. EXTERNAL TELE MONITOR READS SINUS RHYTHM HR 75. NO DISTRESS NOTED. NO S/S OF PAIN THROUGHOUT SHIFT. IV ACCESS MAINTAINED IN LAMIN MIDLINE RUNNING NS@75ML/HR. GTUBE IS MAINTAINED, DRESSING CHANGED,GLUCERNA 1.2 RUNNING @65ML/HR. DAVIDSON CATHETER IS MAINTAINED, DRAINING TO GRAVITY, URINE IS HEMATURIA, OUTPUT 900. LEFT NEPHROSTOMY TUBE IS MAINTAINED, DRAINING TO GRAVITY, OUTPUT IS HEMATURIA AND 100ML. BED REMAINS LOW AND LOCKED, HOB IN SEMI FOWLERS, SIDE RIALS UP X2, BED ALARM ON,EXTREMITIES OFFLOADED. CALL LIGHT WITHIN REACH. WILL ENDORSE TO NEXT SHIFT
[2019-08-11 06:43] LABS: CALCIUM, SERUM 9.2 mg/dL (8.5-10.1); CREATININE 4.1 mg/dL (0.6-1.3); MAGNESIUM 3.3 mg/dL (1.8-2.4); PHOSPHORUS 4.9 mg/dL (2.5-4.9); POTASSIUM 4.1 mmol/L (3.5-5.1)
--- NOTE | 2019-08-11 07:00 | NUR ---
no s/s of distress- received bedside sbar from previous rn-safety precautions in place- will continue to monitor report and record -
[2019-08-11 08:00] VITALS: BP 124/68
[2019-08-11] MEDS: LEVETIRACETAM SOL (5 ML) 100 MG/ML UDC GT SCH ×2 (08:59→21:35)
[2019-08-11] MEDS: HYDROGEN PEROXIDE 480 ML BOTTLE TP SCH ×2 (08:59→21:36)
[2019-08-11] MEDS: Z GUARD REMEDY 4 OZ OINT TP SCH ×2 (08:59→21:37)
[2019-08-11] MEDS: DOCUSATE SODIUM LIQ 100 MG/10 ML UDC GT SCH (08:59)
[2019-08-11] MEDS: ACIDOPHILUS/BULGARICUS 1 EACH TAB.CHEW GT SCH ×2 (09:00→17:15)
[2019-08-11] MEDS: SENNOSIDES 8.6 MG TABLET GT SCH ×2 (09:00→21:35)
[2019-08-11] MEDS: PANTOPRAZOLE 40 MG/PACK PACK GT SCH (09:00)
[2019-08-11] MEDS: FERROUS SULFATE UDC 300 MG/5 ML UDC GT SCH ×2 (09:00→17:15)
[2019-08-11] MEDS: OXCARBAZEPINE 150 MG TABLET GT SCH ×2 (09:00→21:36)
[2019-08-11] MEDS: VITS A AND D/WHITE PET/LANOLIN 5 GM PACKET TP SCH ×2 (09:00→21:37)
[2019-08-11] MEDS: MULTIVIT W/MINERALS 1 TAB TABLET GT SCH (09:00)
[2019-08-11] MEDS: CLOTRIMAZOLE 1% 15 GM TUBE TP SCH ×2 (09:01→17:17)
[2019-08-11] MEDS: BLOOD SUGAR DIAGNOSTIC 1 EACH STRIP IN SCH ×2 (09:01→21:36)
--- NOTE | 2019-08-11 12:00 | NUR ---
patient resting- vent setting remain the same- no s/s of distress- piv infusing- maher and nephrostomy patent - safety precautions in place - will continue to monitor report and record
[2019-08-11] MEDS: SOD FERRIC GLUC 125 MG in IV NS 0.9% 100 ML IV SCH (13:52)
[2019-08-11 13:59] LABS: HEMOGLOBIN 8.6 g/dL (11.5-14.8)
[2019-08-11 16:00] VITALS: BP 110/62
--- NOTE | 2019-08-11 16:00 | NUR ---
patient resting in room - vitals stable 0- sr on tele- no s/s of distress- 1 bm today - safety precautions in place -spoken with sister and left message as far as today's update -hgb stable- CHUTE TAPPER aware of blood in urine and nephrostomy tube -will continue to monitor report and record
--- NOTE | 2019-08-11 18:39 | NUR ---
rn poc continues to remain supportive - piv abx and scheduled fluids- tf - Glucerna @ 65ml/hr- turning schedule, will endorse care to pm rn - safety precautions in place- will continue to monitor report and record
[2019-08-11 20:00] VITALS: BP 119/63
[2019-08-11] MEDS: ASCORBIC ACID 500 MG TABLET GT SCH (21:36)
[2019-08-11] MEDS: INSULIN GLARGINE, 100 UNIT/ML CARTRIDGE SQ SCH (21:43)
[2019-08-12] VITALS: BP 122/88
[2019-08-12] MEDS: METOCLOPRAMIDE HCL 10 MG TABLET GT SCH ×3 (00:10→11:20)
[2019-08-12] MEDS: ALBUTEROL FS 2.5 MG/3 ML VIAL.NEB NEB SCH ×2 (02:00→07:49)
[2019-08-12] MEDS: IV NS 0.9% 1,000 ML IV PRN (03:14)
[2019-08-12 04:00] VITALS: BP 119/57
[2019-08-12] MEDS: PIPERACILLIN /TAZOBACTAM 2.25 G in IV D5W 50 ML IV SCH ×2 (05:08→11:20)
[2019-08-12] MEDS: GLUCERNA 1.2 1,000 ML BOTTLE GT PRN (05:41)
[2019-08-12] MEDS: GABAPENTIN 300 MG CAPSULE GT SCH (05:41)
[2019-08-12 06:25] LABS: BASOPHILS # (AUTO) 0.1 /CMM (0.0-0.2); BASOPHILS % (AUTO) 0.4 % (0.0-2.0); EOSINOPHILS % (AUTO) 3.5 % (0.0-6.0); HEMATOCRIT 25 % (33-45); HEMOGLOBIN 8.2 g/dL (11.5-14.8); LYMPHOCYTES # (AUTO) 1.4 /CMM (0.8-4.8); LYMPHOCYTES % (AUTO) 9.9 % (20.0-44.0); MEAN CORPUSCULAR HGB CONC 33 g/dl (31.0-36.0); MEAN CORPUSCULAR VOLUME 92 fL (82-100); MONOCYTES # (AUTO) 1.3 /CMM (0.1-1.30); MONOCYTES % (AUTO) 9.7 % (2.0-12.0); NEUTROPHILS # (AUTO) 10.6 /CMM (1.8-8.9); NEUTROPHILS % (AUTO) 76.5 % (43.0-81.0); PLATELET COUNT (AUTO) 291 /CMM (150-450); RED BLOOD CELL COUNT(AUTO) 2.72 MIL/uL (4.0-5.2); WHITE BLOOD COUNT (AUTO) 13.9 K/uL (4.3-11.0)
[2019-08-12 06:40] LABS: CREATININE 3.9 mg/dL (0.6-1.3); MAGNESIUM 3.2 mg/dL (1.8-2.4); PHOSPHORUS 4.9 mg/dL (2.5-4.9); POTASSIUM 4.3 mmol/L (3.5-5.1)
--- NOTE | 2019-08-12 07:30 | NUR ---
RN OPENING NOTE: RECEIVED PATIENT IN BED THIS MORNING. NO RESPIRATORY DISTRESS NOTED. NO ACUTE DISTRESS NOTED. PATIENT ON TUBE FEEDING. TOLERATING SETTINGS WELL WITH NO RESIDUAL. PATIENT ON VENT. TOLERATING SETTINGS WELL. MIDLINE ON LAKISHA, FLUSHING WELL. NO SIGNS OF COMPLICATION NOTED. BLE EDEMA NOTED. PATIENT HAS DAVIDSON, HEMATURIA NOTED. PATIENT HAS NEPHROSTOMY TUBE, RED DRAINAGE NOTED. SAFETY MEASURES IMPLEMENTED, BED IN LOWEST POSITION, LOCKED, SIDE RAILS UP X2, CALL LIGHT WITHIN REACH. WILL CONTINUE TO MONITOR PATIENT FOR CHANGES.
[2019-08-12 08:00] VITALS: BP_SYST 118; BP_SYST 96; BP_DIAS 48; BP_DIAS 76
[2019-08-12] MEDS ORDERED: PIPE2.257 IV (08:22)
[2019-08-12] MEDS ORDERED: SOD62.5V IV (08:22)
[2019-08-12] MEDS: DOCUSATE SODIUM LIQ 100 MG/10 ML UDC GT SCH (09:18)
[2019-08-12] MEDS: OXCARBAZEPINE 150 MG TABLET GT SCH (09:18)
[2019-08-12] MEDS: LEVETIRACETAM SOL (5 ML) 100 MG/ML UDC GT SCH (09:18)
[2019-08-12] MEDS: ACIDOPHILUS/BULGARICUS 1 EACH TAB.CHEW GT SCH (09:18)
[2019-08-12] MEDS: SENNOSIDES 8.6 MG TABLET GT SCH (09:18)
[2019-08-12] MEDS: PANTOPRAZOLE 40 MG/PACK PACK GT SCH (09:18)
[2019-08-12] MEDS: MULTIVIT W/MINERALS 1 TAB TABLET GT SCH (09:18)
[2019-08-12] MEDS: FERROUS SULFATE UDC 300 MG/5 ML UDC GT SCH (09:18)
[2019-08-12] MEDS: HYDROGEN PEROXIDE 480 ML BOTTLE TP SCH (09:27)
[2019-08-12] MEDS: CLOTRIMAZOLE 1% 15 GM TUBE TP SCH (09:28)
[2019-08-12] MEDS: Z GUARD REMEDY 4 OZ OINT TP SCH (09:29)
[2019-08-12] MEDS: VITS A AND D/WHITE PET/LANOLIN 5 GM PACKET TP SCH (09:30)
[2019-08-12] MEDS: BLOOD SUGAR DIAGNOSTIC 1 EACH STRIP IN SCH (09:31)
[2019-08-12] MEDS: INSULIN REGULAR, HUMAN 100 UNIT/ML 3 ML VIAL SQ PRN (11:23)
[2019-08-12 12:00] VITALS: BP 138/76
--- NOTE | 2019-08-12 13:01 | NUR ---
HEALTH AND WELLNESS DIRECTOR NOTE: PATIENT WAS DC TO [facility]. UPON ASSESSMENT, NO RESPIRATORY DISTRESS NOTED. NO ACUTE DISTRESS NOTED. PATIENT ON TUBE FEEDING. TOLERATING SETTINGS WELL WITH NO RESIDUAL. PATIENT ON VENT. TOLERATING SETTINGS WELL. MIDLINE ON LAKISHA, FLUSHING WELL. NO SIGNS OF COMPLICATION NOTED. BLE EDEMA NOTED. PATIENT HAS DAVIDSON, HEMATURIA NOTED. PATIENT HAS NEPHROSTOMY TUBE, RED DRAINAGE NOTED. DISCHARGE PAPERWORK SIGNED. WOUND CARE PICTURES TAKEN AND PLACED IN CHART. REPORT GIVEN TO INDIA REED. DC PATIENT FROM UNIT AT 1245, HANDOFF PATIENT TO GINA HOWARD IN SUBACUTE.
[2019-08-15] MEDS ORDERED: EPOETIN ALFA (10,000 UNIT) 10,000 UNIT/ML VIAL SQ SCH (15:00)
== END 2019-08-12 12:35 | DRG 813 ==
LOC: ER 11:52 → TELE-TD 15:36 → TELE1 08-10 10:14
PROVIDERS: ADMIT Registered Nurse; ATTEND Registered Nurse
PROC: 5A1945Z Respiratory Ventilation, 24-96 Consecutive Hours (ICD-10-PCS; principal; 2019-08-09)
PROC: 30233N1 Transfusion of Nonautologous Red Blood Cells into Peripheral Vein, Percutaneous Approach (ICD-10-PCS; 2019-08-10)
DX: N99.841 Postprocedural hematoma of a genitourinary system organ or structure following other procedure (principal); G93.1 Anoxic brain damage, not elsewhere classified; Z99.11 Dependence on respirator [ventilator] status; E44.0 Moderate protein-calorie malnutrition; J96.11 Chronic respiratory failure with hypoxia; R40.3 Persistent vegetative state; N17.9 Acute kidney failure, unspecified; S37.012A Minor contusion of left kidney, initial encounter; E11.22 Type 2 diabetes mellitus with diabetic chronic kidney disease; I13.0 Hypertensive heart and chronic kidney disease with heart failure and stage 1 through stage 4 chronic kidney disease, or unspecified chronic kidney disease; X58.XXXA Exposure to other specified factors, initial encounter; Y93.9 Activity, unspecified; Y92.129 Unspecified place in nursing home as the place of occurrence of the external cause; Y83.8 Other surgical procedures as the cause of abnormal reaction of the patient, or of later complication, without mention of misadventure at the time of the procedure; G40.909 Epilepsy, unspecified, not intractable, without status epilepticus; I25.10 Atherosclerotic heart disease of native coronary artery without angina pectoris; E66.9 Obesity, unspecified; N18.9 Chronic kidney disease, unspecified; E87.1 Hypo-osmolality and hyponatremia; D63.1 Anemia in chronic kidney disease; N39.0 Urinary tract infection, site not specified; R13.10 Dysphagia, unspecified; Z93.1 Gastrostomy status; Z87.442 Personal history of urinary calculi; Z79.4 Long term (current) use of insulin; Z93.0 Tracheostomy status; E88.09 Other disorders of plasma-protein metabolism, not elsewhere classified; Z68.27 Body mass index [BMI] 27.0-27.9, adult; N28.89 Other specified disorders of kidney and ureter; D62 Acute posthemorrhagic anemia; Z87.440 Personal history of urinary (tract) infections; B96.20 Unspecified Escherichia coli [E. coli] as the cause of diseases classified elsewhere; Z16.12 Extended spectrum beta lactamase (ESBL) resistance; I50.9 Heart failure, unspecified; G82.20 Paraplegia, unspecified; Z93.6 Other artificial openings of urinary tract status
CPT/HCPCS: 31720; 36415; 71045-TC; 80048-TC; 80061-TC; 80076-TC; 80202-TC; 81000-TC; 82962-TC; 83605-TC; 83690-TC; 83735-TC; 84100-TC; 84443-TC; 85025-TC; 85027-TC; 86850-TC; 86921-TC; 87040-TC; 87070-TC; 87081-TC; 87086-TC; 87186-TC; 94002-TC; 94003-TC; 94760-TC; 94762-TC; 99082-TC; G0378; J1815; J1953; J2543; J2916; J3370; J7030; J7050; J7060; J8597; P9016-BL

== ENCOUNTER 2019-09-08 17:16 | Inpatient (IN) | payer MEDICARE, OTHER ==
[~2019-09-08] VITALS: Ht 170.2 cm; Wt 83.9 kg
[~2019-09-08 17:16] MED LIST changes: -CALC-494 GT; +CEFE2VIA3 IV; -DEXL60CA3 GT; +EPOE1VIA6 SQ; -FLUC200P12 IV; +LINE600T12 GT; +LORA-259 IVP; +MAG30ORA GT; -MUPI22OI7; +NORM10004 IV; +OMEP20TA5 GT; +ONDA-97 GT; -PIPE2.254 IV; +PIPE2.257 IV; +SENN-18 GT; +SOD62.5V IV
[2019-09-08 18:51] VITALS: BP 154/66
--- NOTE | 2019-09-08 18:54 | NUR ---
[facility] RN NOTE RECEIVED PATIENT FROM [facility] WITH DX PNA AND R\O COVID -[address] SALDANA, PATIENT AWAKE BUT UNABLE TO FOLLOW ANY COMMAND , WITH TRACH TO VENT SETTING ORDERED, WITH DAVIDSON CATH TO GRAVITY AND LT NEPHROSTOMY WITH NO DRAINAGE NOTED, PLACED ON TELE MONITOR SR HR 90. WITH G TUBE IN PLACED, BED IN LOWEST AND LOCKED POSITION , ALL NEEDS ATTENDED , SPOKE WITH DR SALDANA AWARE THAT ABDOMEN DISTENDED BUT SOFT TO TOUCH , AND UPPER ARM IS CONTACTED , BOTH LEGS WITH EDEMA PLUS 3, DR SALDANA WILL PLACE ADMISSION ORDERS, ADMISSION ENDORSED TO KEVIN REED
[2019-09-08] MEDS ORDERED: AMIKACIN 250 MG/ML VIAL IV SCH (19:30)
[2019-09-08] MEDS ORDERED: MAGNESIUM HYDROXIDE 30 ML UDC GT PRN (19:30)
[2019-09-08] MEDS ORDERED: LORAZEPAM 1 MG TABLET GT PRN (19:30)
[2019-09-08] MEDS ORDERED: BISACODYL SUPP (10 MG) 10 MG/SUPP.RECT SUPP.RECT RC PRN (19:30)
[2019-09-08] MEDS ORDERED: DEXTROSE 50%-WATER 50 ML DISP.SYRIN IV PRN (19:30)
[2019-09-08] MEDS ORDERED: ONDANSETRON 4 MG TAB.RAPDIS GT PRN (19:30)
[2019-09-08] MEDS ORDERED: MAG HYDROX/AL HYDROX/SIMETH 30 ML UDC GT PRN (19:30)
[2019-09-08 20:00] VITALS: BP 136/67
[2019-09-08] MEDS ORDERED: DOSING PER PHARMACY-AMIKACI IV XX PRN (20:00)
[2019-09-08 20:18] LABS: ABG BASE EXCESS -6.8 mmol/L; ABG OXYGEN SATURATION 96.3 % (92.0-98.5); ABG PCO2 32.7 mmHg (35.0-45.0); ABG PH 7.357 (7.350-7.450); ABG PO2 92.3 mmHg (75.0-100.0); AaDO2 83.2 mmHg; COHb 1.3 % (0.5-1.5); MetHb 0.3 % (0.0-1.5); O2Hb 94.8 % (94.0-97.0); PEEP,BG 5 cm H2O; SITE, ABG Left Radial; VENT MODE, BG AC 12; VT, ABG 500 mL
--- NOTE | 2019-09-08 20:20 | NUR ---
RN NOTE DR. SALDANA MADE AWARE OF ABG RESULT WITH NO NEW ORDERS.
[2019-09-08] MEDS ORDERED: FEE PK DOSING 1 MIN EA MC ONE (20:23)
[2019-09-08] MEDS ORDERED: AMIKACIN 300 MG in IV D5W 100 ML IV SCH (21:00)
[2019-09-08] MEDS: INSULIN GLARGINE, 100 UNIT/ML CARTRIDGE SQ SCH (22:00)
[2019-09-08] MEDS: FERROUS SULFATE UDC 300 MG/5 ML UDC GT SCH (22:02)
[2019-09-08] MEDS: LEVETIRACETAM SOL (5 ML) 100 MG/ML UDC GT SCH (22:02)
[2019-09-08] MEDS: BLOOD SUGAR DIAGNOSTIC 1 EACH STRIP IN SCH (22:02)
[2019-09-08] MEDS: GABAPENTIN 300 MG CAPSULE GT SCH (22:03)
[2019-09-08] MEDS: OXCARBAZEPINE 150 MG TABLET GT SCH (22:03)
[2019-09-08] MEDS: SENNOSIDES 8.6 MG TABLET GT SCH (22:03)
[2019-09-08] MEDS: SIMETHICONE SUSP 40 MG/0.6 ML BOTTLE GT SCH (22:03)
[2019-09-08] MEDS: ASCORBIC ACID 500 MG TABLET GT SCH (22:03)
[2019-09-08] MEDS: LINEZOLID 600 MG TABLET GT SCH (22:04)
--- NOTE | 2019-09-08 23:06 | NUR ---
RN NOTE BLOOD SUGAR 93. LANTUS 8 UNITS SUBQ HELD PER MD. ORDER NOTED AND CARRIED OUT.
[2019-09-08] MEDS: GLUCERNA 1.2 1,000 ML BOTTLE NG PRN (23:25)
[2019-09-08] MEDS: METOCLOPRAMIDE HCL 10 MG/10 ML UDC GT SCH (23:43)
[2019-09-08 23:55] LABS: CREATINE KINASE, TOTAL 40 U/L (26-192); FERRITIN 2295 ng/mL (8-388)
[2019-09-08 23:56] LABS: C-REACTIVE PROTEIN 22.1 mg/dL (0.0-0.9)
[2019-09-09] VITALS (7 sets, daily range): BP systolic 124–146; BP diastolic 57–89
[2019-09-09] MEDS: GABAPENTIN 300 MG CAPSULE GT SCH ×3 (05:35→21:34)
[2019-09-09] MEDS: BLOOD SUGAR DIAGNOSTIC 1 EACH STRIP IN SCH (05:35)
[2019-09-09] MEDS: METOCLOPRAMIDE HCL 10 MG/10 ML UDC GT SCH ×3 (05:35→16:24)
[2019-09-09] MEDS ORDERED: PANTOPRAZOLE 40 MG TABLET.DR PO SCH (06:00)
[2019-09-09 06:52] LABS: BASOPHILS # (AUTO) 0.1 /CMM (0.0-0.2); BASOPHILS % (AUTO) 0.4 % (0.0-2.0); EOSINOPHILS % (AUTO) 1.7 % (0.0-6.0); HEMATOCRIT 24 % (33-45); HEMOGLOBIN 7.8 g/dL (11.5-14.8); LYMPHOCYTES # (AUTO) 1.1 /CMM (0.8-4.8); LYMPHOCYTES % (AUTO) 6.8 % (20.0-44.0); MEAN CORPUSCULAR HGB CONC 33 g/dl (31.0-36.0); MEAN CORPUSCULAR VOLUME 95 fL (82-100); MONOCYTES # (AUTO) 1.8 /CMM (0.1-1.30); MONOCYTES % (AUTO) 11.4 % (2.0-12.0); NEUTROPHILS # (AUTO) 12.5 /CMM (1.8-8.9); NEUTROPHILS % (AUTO) 79.7 % (43.0-81.0); PLATELET COUNT (AUTO) 411 /CMM (150-450); RED BLOOD CELL COUNT(AUTO) 2.53 MIL/uL (4.0-5.2); WHITE BLOOD COUNT (AUTO) 15.7 K/uL (4.3-11.0)
[2019-09-09 07:12] LABS: BILIRUBIN,TOTAL 0.1 mg/dL (0.2-1.0); CALCIUM, SERUM 9.8 mg/dL (8.5-10.1); TOTAL PROTEIN, SERUM 8.6 g/dL (6.4-8.2)
--- NOTE | 2019-09-09 07:14 | NUR ---
RN CLOSING NOTE PT SLEEPING IN BED IN SEMI MITCHELL'S POSITION. PT ON MECHANICAL VENTILATOR AND TOLERATING SETTINGS WELL. TRACH MID LINE AND IN PLACE. RESPIRATIONS EVEN AND UNLABORED. NO SIGNS OR SYMPTOMS OF PAIN OR DISCOMFORT. DAVIDSON CATHETER PATENT AND IN PLACE CURRENTLY DRAINING CLEAR YELLOW URINE. WITH LEFT NEPHROSTOMY TUBE DRAINING PINK CLOUDY TINGED URINE. GT PATENT AND IN PLACE WITH TUBE FEEDING OF GLUCERNA 1.2 @65ML/HOUR. NO GASTRIC RESIDUAL NOTED. MORNING LABS PENDING. BED LOW AND IN LOCKED POSITION. CALL LIGHT WITHIN REACH, SAFETY MEASURES IMPLEMENTED. WILL ENDORSE TO MORNING RN FOR CONTINUATION OF CARE.
[2019-09-09 07:46] LABS: ALBUMIN 1.2 g/dL (3.4-5.0)
--- NOTE | 2019-09-09 07:58 | NUR ---
WOUND CARE CONSULT: PT RESTING, IN ISOLATION AT THIS TIME. REVIEWED ADMISSION DOCUMENTATION INCLUDING PHOTOS WHICH SHOW OPEN BLISTER RT THIGH, REDNESS/DISCOLORATION TO G TUBE SITE AND SACRAL SCARRING WITH DISCOLORATION TO BUTTOCKS AND Z GUARD IN USE. RECOMMENDATIONS MADE BASED ON NURSING/PHOTO DOCUMENTATION. DISCUSSED WITH NURSING STAFF. PT ON FIRST STEP CIRS LOW AIRLOSS MATTRESS. WILL SEE PRN. IN AGREEMENT WITH PLAN OF CARE.
--- NOTE | 2019-09-09 09:00 | NUR ---
RN [facility]: pt is on droplet isolation r/a Covid19, by night nurse reposted and charge nurse confirmed: sample is in process, pt is obtunded, reactive by touch, no eyes contacted, rigid, unable to follow commands, no SOB, O2sat. over 95%, rest, suctioned well, SR, SBP over 94%, GTF residual WNL, F/C is patent, nephrostomy is patent/cloudy urine, keep HOB over 45, updated/see new orders
[2019-09-09] MEDS: OXCARBAZEPINE 150 MG TABLET GT SCH ×2 (09:06→21:34)
[2019-09-09] MEDS: LINEZOLID 600 MG TABLET GT SCH ×2 (09:06→21:35)
[2019-09-09] MEDS: MULTIVIT W/MINERALS 1 TAB TABLET GT SCH (09:07)
[2019-09-09] MEDS: ACIDOPHILUS/BULGARICUS 1 EACH TAB.CHEW GT SCH ×2 (09:07→16:22)
[2019-09-09] MEDS: FERROUS SULFATE UDC 300 MG/5 ML UDC GT SCH ×2 (09:07→21:34)
[2019-09-09] MEDS: LEVETIRACETAM SOL (5 ML) 100 MG/ML UDC GT SCH ×2 (09:07→21:33)
[2019-09-09] MEDS: DOCUSATE SODIUM LIQ 100 MG/10 ML UDC GT SCH (09:07)
[2019-09-09] MEDS: SENNOSIDES 8.6 MG TABLET GT SCH ×2 (09:07→21:34)
[2019-09-09] MEDS: AMIKACIN 300 MG in IV D5W 100 ML IV SCH (09:08)
[2019-09-09] MEDS: GLUCERNA 1.2 1,000 ML BOTTLE NG PRN (09:09)
[2019-09-09] MEDS: SIMETHICONE SUSP 40 MG/0.6 ML BOTTLE GT SCH ×2 (09:11→21:32)
--- NOTE | 2019-09-09 09:15 | NUR ---
RN STACIE: per charge nurse: she spoke with Aleta/lab and confirmed someone from lab got swab sample for Covid19, dry cell assembly supervisor and Ashleigh/IDP were notified
[2019-09-09 13:01] LABS: CREATININE, URINE 24.6 MG/DL (30.0-125.0); URINE TOTAL PROTEIN 178.1 mg/dL (0-11.9)
[2019-09-09 13:57] LABS: APPEARANCE,URINE SL CLOUDY (CLEAR); BILIRUBIN,URINE NEGATIVE (NEGATIVE); BLOOD, URINE LARGE Ery/uL (NEGATIVE); COLOR,URINE YELLOW (YELLOW); KETONES,URINE NEGATIVE (NEGATIVE); LEUKOCYTE ESTERASE ,URINE LARGE (NEGATIVE); NITRITE, URINE NEGATIVE (NEGATIVE); PH,URINE 6.5 (5.0-8.0); PROTEIN,URINE 100 mg/dl (NEGATIVE); UGLUCOSE NEGATIVE (NEGATIVE); UROBILINOGEN,URINE 0.2 EU/dL (0.2)
[2019-09-09 14:27] LABS: BACTERIA,URINE 2+ /HPF (None Seen); RBC,URINE 21-50 /HPF (0-2); SQUAMOUS EPITHELIAL CELL,UR 0-2 /HPF (None Seen); WBC,URINE 50 /HPF (0-3)
[2019-09-09 15:39] LABS: EOSINOPHIL,URINE Few
--- NOTE | 2019-09-09 18:18 | NUR ---
RN [facility]AC[facility]: pt is obtunded, can open eyes, no eyes contact, rest, unable to follow commands, O2sat. over 94%, no SOB, no distress, suctioned well, SR, SBP over 90 below 150, GTF residual WNL, PM/skin/wound care done, nephrostomy is patent/secured, BS 113, GT site: small redness/erosion/care done, charge nurse spoke with lab again: confirmed lab found covid19 swab sample
--- NOTE | 2019-09-09 18:50 | NUR ---
RN [facility]: SUSAN Her updated with pt.current condition, VS, I/O, meds
--- NOTE | 2019-09-09 19:30 | NUR ---
RN OPENING NOTES: PATIENT IN BED. NONVERBAL BUT RESPONSIVE TO VERBAL AND TACTILE STIMULI WITH EYES OPENING SPONTANEOUSLY. NO RESPIRATORY DISTRESS. ON VENT TRACH, TOLERATING CURRENT SETTINGS WELL. NO S/S OF PAIN. NO FACIAL GRIMACING. ON COMPUTATIONAL GENETICIST, SHOWING NSR, HR 80s. LAKISHA MIDLINE C/D/I. TKO AND FLUSHING WELL. ON GTF, HOB ELEVATED, NO RESIDUAL. ON CONTACT AND DROPLET ISOLATION FOR R/O COVID; AWAITING FOR RESULTS. PATIENT HAS (L) NEPHROSTOMY AND DAVIDSON CATH; BOTH PATENT AND DRAINING. SAFETY PRECAUTIONS IMPLEMENTED. BED LOCKED, LOW POSITION, SIDE RAILS X 2 UP. CALL LIGHT WITHIN REACH. WILL CONT. TO MONITOR. Addendum: 09/09/19 at 2358 by LISA COSME RN [id number] ACCUCHECK NOT SCANNED BY AM SHIFT NURSE; HOWEVER, PER ENDORSEMENT, BS WAS CHECKED = 113 AND NO INSULIN WAS GIVEN.
--- NOTE | 2019-09-09 21:30 | NUR ---
RN NOTE: PATIENT NOTED WITH TEMP 100.0F VIA AXILLA. WILL ADMINISTER TYLENOL AND PROVIDE COOLING MEASURES. WILL CONT. TO MONITOR. Addendum: 09/09/19 at 2359 by LISA COSME RN [id number]: RECHECKED TEMP WHICH CAME DOWN TO 99.5F, WILL CONT. TO MONITOR.
[2019-09-09] MEDS: ASCORBIC ACID 500 MG TABLET GT SCH (21:34)
[2019-09-09] MEDS: ACETAMINOPHEN 650 MG/20.3 ML UDC GT PRN (21:36)
[2019-09-09] MEDS: INSULIN GLARGINE, 100 UNIT/ML CARTRIDGE SQ SCH (22:27)
[2019-09-10] VITALS: BP 130/80
[2019-09-10] MEDS: METOCLOPRAMIDE HCL 10 MG/10 ML UDC GT SCH ×5 (00:24→23:42)
[2019-09-10 04:00] VITALS: BP 145/74
--- NOTE | 2019-09-10 04:15 | NUR ---
RN NOTE: RECEIVED BLOOD CULTURE RESULT. PATIENT IS GRAM POSITIVE COCCI IN CLUSTERS 1 BOTTLE. ON ATB AMIKACIN IV AND LINEZOLID. DR. LEWIS MADE AWARE WITH NNO. ALSO MADE AWARE THAT PATIENT HAD FEVER 100.0F, TYLENOL WAS GIVEN, FEVER CAME DOWN TO 99.3F. LATEST TEMP 98.0F. NNO AT THIS TIME. WILL CONT. TO MONITOR.
[2019-09-10] MEDS: GABAPENTIN 300 MG CAPSULE GT SCH ×3 (05:08→20:47)
[2019-09-10] MEDS: BLOOD SUGAR DIAGNOSTIC 1 EACH STRIP IN SCH ×3 (05:50→18:18)
[2019-09-10] MEDS: PANTOPRAZOLE 40 MG/PACK PACK GT SCH (05:53)
--- NOTE | 2019-09-10 07:20 | NUR ---
RN CLOSING NOTE: PATIENT IN STABLE CONDITION DURING SHIFT. NO ACUTE DISTRESS. TURNED AND REPOSITIONED Q2H. ENDORSED TO AM SHIFT NURSE FOR CONTINUITY OF CARE.
[2019-09-10 07:39] LABS: BASOPHILS # (AUTO) 0.1 /CMM (0.0-0.2); BASOPHILS % (AUTO) 0.3 % (0.0-2.0); HEMATOCRIT 24 % (33-45); HEMOGLOBIN 7.6 g/dL (11.5-14.8); LYMPHOCYTES # (AUTO) 1.3 /CMM (0.8-4.8); LYMPHOCYTES % (AUTO) 7.7 % (20.0-44.0); MEAN CORPUSCULAR HGB CONC 32 g/dl (31.0-36.0); MEAN CORPUSCULAR VOLUME 94 fL (82-100); MONOCYTES # (AUTO) 1.8 /CMM (0.1-1.30); MONOCYTES % (AUTO) 10.7 % (2.0-12.0); NEUTROPHILS # (AUTO) 13.5 /CMM (1.8-8.9); NEUTROPHILS % (AUTO) 79.3 % (43.0-81.0); PLATELET COUNT (AUTO) 435 /CMM (150-450); RED BLOOD CELL COUNT(AUTO) 2.51 MIL/uL (4.0-5.2)
--- NOTE | 2019-09-10 07:42 | NUR ---
RN OPENING NOTES RECEIVED PATIENT RESTING IN BED COMFORTABLY. SHE IS OBTUNDED, NON-VERBAL, AND BEDBOUND. SHE IS ON MECH VENT VIA SHILEY 8 TRACH, TOLERATING SETTINGS WELL. TELE MONITOR SHOWING SR, NEPHROSTOMY ON LEFT SIDE IS PATENT AND INTACT, DRAINING PINK TINGED FLUID BY GRAVITY. SKIN IS INTACT. DAVIDSON CATH IS PATENT AND INTACT. LAKISHA MIDLINE IS PATENT AND INTACT. SAFETY MEASURES HAVE BEEN IMPLEMENTED, CALL LIGHT IS WITHIN REACH, BED IS IN LOWEST AND LOCKED POSITION, SIDE RAILS UP X2, WILL CONTINUE TO MONITOR FOR ANY CHANGES.
[2019-09-10 07:55] LABS: CALCIUM, SERUM 9.9 mg/dL (8.5-10.1); MAGNESIUM 2.5 mg/dL (1.8-2.4); PHOSPHORUS 3.9 mg/dL (2.5-4.9); POTASSIUM 4.4 mmol/L (3.5-5.1)
[2019-09-10 08:00] VITALS: BP 142/73
[2019-09-10] MEDS: LEVETIRACETAM SOL (5 ML) 100 MG/ML UDC GT SCH ×2 (09:15→20:46)
[2019-09-10] MEDS: LINEZOLID 600 MG TABLET GT SCH ×2 (09:15→20:47)
[2019-09-10] MEDS: MULTIVIT W/MINERALS 1 TAB TABLET GT SCH (09:16)
[2019-09-10] MEDS: FERROUS SULFATE UDC 300 MG/5 ML UDC GT SCH ×2 (09:16→20:46)
[2019-09-10] MEDS: SENNOSIDES 8.6 MG TABLET GT SCH ×2 (09:16→20:47)
[2019-09-10] MEDS: ACIDOPHILUS/BULGARICUS 1 EACH TAB.CHEW GT SCH ×2 (09:16→17:56)
[2019-09-10] MEDS: DOCUSATE SODIUM LIQ 100 MG/10 ML UDC GT SCH (09:16)
[2019-09-10] MEDS: OXCARBAZEPINE 150 MG TABLET GT SCH ×2 (09:16→20:47)
[2019-09-10] MEDS: SIMETHICONE SUSP 40 MG/0.6 ML BOTTLE GT SCH ×2 (09:28→20:50)
[2019-09-10] MEDS: GLUCERNA 1.2 1,000 ML BOTTLE NG PRN (11:58)
[2019-09-10 12:00] VITALS: BP 133/61
[2019-09-10 16:00] VITALS: BP 138/61
--- NOTE | 2019-09-10 16:39 | NUR ---
RN NOTES PATIENT IS COVID-19 NEGATIVE, DR SALDANA MADE AWARE. DROPLET PRECAUTIONS ARE STILL IMPLEMENTED BECAUSE INFLUENZA IS STILL PENDING, WILL CONTINUE TO MONITOR FOR ANY CHANGES.
--- NOTE | 2019-09-10 19:05 | NUR ---
RN CLOSING NOTES PATIENT IS RESTING IN BED COMFORTABLY, NO S.SX OF DISTRESS AT THIS TIME. SHE IS ON MECH VENT, TOLERATING WELL, NO SOB OR RESP DISTRESS AT THIS TIME. NO ACUTE CHANGES HAVE OCCURRED, VITAL SIGNS ARE STABLE, PT NEEDS HAVE BEEN MET. SAFETY MEASURES HAVE BEEN IMPLEMENTED, CALL LIGHT IS WITHIN REACH, BED IS IN LOWEST AND LOCKED POSITION, SIDE RAILS UP X2, PT HAS BEEN ENDORSED TO NIGHTSHIFT RN FOR WHIT
--- NOTE | 2019-09-10 19:20 | NUR ---
RN OPENING NOTE PATIENT IN BED WITH HOB ELEVATED, NO S/S OF DISTRESS 02 SAT AT 100%. PT ON MECH VENT, TOLERATING WELL, PT IN NO RESP DISTRESS AT THIS TIME. NO ACUTE CHANGES HAVE OCCURRED. PT ON GLUCERNA 1.2 RUNNING AT 65ML/HR. LAKISHA PATENT AND INTACT, WITH GOOD BLOOD RETURN AND FLUSHING WELL. CALL LIGHT WITHIN REACH, BED LOCKED AND IN LOWEST SIDE RAILS UP X2 WILL CONT TO MONITOR PT.
[2019-09-10 20:00] VITALS: BP 127/58
[2019-09-10] MEDS: ASCORBIC ACID 500 MG TABLET GT SCH (20:47)
[2019-09-10] MEDS: INSULIN GLARGINE, 100 UNIT/ML CARTRIDGE SQ SCH (22:39)
[2019-09-11] VITALS: BP 137/63
--- NOTE | 2019-09-11 01:32 | NUR ---
RN NOTE RECEIVED CALL FROM LAB. BLOOD CX GRAM STAIN SHOWING GRAM + CLUSTERS.WILL ENDORSE TO AM NURSE TO F/U WITH
[2019-09-11 04:00] VITALS: BP_SYST 147; BP_DIAS 75; BP_DIAS 78
[2019-09-11] MEDS: GABAPENTIN 300 MG CAPSULE GT SCH ×3 (06:15→20:43)
[2019-09-11] MEDS: METOCLOPRAMIDE HCL 10 MG/10 ML UDC GT SCH ×4 (06:19→23:28)
[2019-09-11] MEDS: PANTOPRAZOLE 40 MG/PACK PACK GT SCH (06:21)
[2019-09-11 06:31] LABS: BASOPHILS % (AUTO) 0.2 % (0.0-2.0); EOSINOPHILS % (AUTO) 2.1 % (0.0-6.0); HEMATOCRIT 26 % (33-45); LYMPHOCYTES # (AUTO) 1.4 /CMM (0.8-4.8); LYMPHOCYTES % (AUTO) 8.5 % (20.0-44.0); MEAN CORPUSCULAR HGB CONC 31 g/dl (31.0-36.0); MEAN CORPUSCULAR VOLUME 95 fL (82-100); MONOCYTES % (AUTO) 11.5 % (2.0-12.0); NEUTROPHILS # (AUTO) 13.2 /CMM (1.8-8.9); NEUTROPHILS % (AUTO) 77.7 % (43.0-81.0); PLATELET COUNT (AUTO) 490 /CMM (150-450); RED BLOOD CELL COUNT(AUTO) 2.68 MIL/uL (4.0-5.2)
[2019-09-11 06:48] LABS: CALCIUM, SERUM 9.9 mg/dL (8.5-10.1); MAGNESIUM 2.4 mg/dL (1.8-2.4); PHOSPHORUS 4.2 mg/dL (2.5-4.9); POTASSIUM 4.8 mmol/L (3.5-5.1)
[2019-09-11] MEDS: BLOOD SUGAR DIAGNOSTIC 1 EACH STRIP IN SCH ×2 (07:08→18:04)
[2019-09-11] MEDS: GLUCERNA 1.2 1,000 ML BOTTLE NG PRN (07:16)
--- NOTE | 2019-09-11 07:17 | NUR ---
RN CLOSING NOTE PATIENT IN BED WITH HOB ELEVATED, NO S/S OF DISTRESS 02 SAT AT 100%. PT ON MECH VENT, TOLERATING WELL, PT IN NO RESP DISTRESS AT THIS TIME. NO ACUTE CHANGES HAVE OCCURRED. PT ON GLUCERNA 1.2 RUNNING AT 65ML/HR. LAKISHA PATENT AND INTACT, CALL LIGHT WITHIN REACH, BED LOCKED AND IN LOWEST SIDE RAILS UP X2 WENDORSED TO AM RN FOR WHIT Addendum: 09/11/19 at 0726 by BRUCE GARCIA RN ENDORSED TO AM RN OF BLOOD CX AWARE TO INFORM
--- NOTE | 2019-09-11 07:33 | NUR ---
RN OPENING NOTES RECEIVED PATIENT RESTING IN BED COMFORTABLY. SHE IS OBTUNDED, NON-VERBAL, TRACES WITH EYES, AND IS BED BOUND. SHE IS ON MECH VENT VIA SHILEY 8 TRACH, TOLERATING WELL, NO SOB OR RESP DISTRESS. TELE MONITOR SHOWING SR. L NEPHROSTOMY IS INTACT, DAVIDSON CATH IS INTACT AND PATENT. SKIN IS INTACT. GTUBE IS PATENT AND INTACT, INFUSING GLUCERNA AT 65 ML.HR, TOLERATING WELL, NO RESIDUAL. LAKISHA MIDLINE IS PATENT AND INTACT. SAFETY MEASURES HAVE BEEN IMPLEMENTED, CALL LIGHT IS WITHIN REACH, BED IS IN LOWEST AND LOCKED POSITION, SIDE RAILS UP X2, WILL CONTINUE TO MONITOR FOR ANY CHANGES.
[2019-09-11 08:00] VITALS: BP 133/79
[2019-09-11] MEDS: MULTIVIT W/MINERALS 1 TAB TABLET GT SCH (08:34)
[2019-09-11] MEDS: FERROUS SULFATE UDC 300 MG/5 ML UDC GT SCH ×2 (08:34→20:44)
[2019-09-11] MEDS: ACIDOPHILUS/BULGARICUS 1 EACH TAB.CHEW GT SCH ×2 (08:34→17:37)
[2019-09-11] MEDS: SENNOSIDES 8.6 MG TABLET GT SCH ×2 (08:34→20:44)
[2019-09-11] MEDS: LEVETIRACETAM SOL (5 ML) 100 MG/ML UDC GT SCH ×2 (08:34→20:44)
[2019-09-11] MEDS: LINEZOLID 600 MG TABLET GT SCH ×2 (08:34→20:44)
[2019-09-11] MEDS: DOCUSATE SODIUM LIQ 100 MG/10 ML UDC GT SCH (08:34)
[2019-09-11] MEDS: OXCARBAZEPINE 150 MG TABLET GT SCH ×2 (08:34→20:43)
[2019-09-11] MEDS: SIMETHICONE SUSP 40 MG/0.6 ML BOTTLE GT SCH ×2 (08:34→20:50)
[2019-09-11 09:39] LABS: IRON, SERUM 19 ug/dl (50-175); TOTAL IRON BINDING CAPACITY 77 ug/dl (250-450)
[2019-09-11 10:19] LABS: FERRITIN 2661 ng/mL (8-388)
--- NOTE | 2019-09-11 10:45 | NUR ---
RN NOTES MD SALDANA MADE AWARE OF BLOOD CULTURE RESULTS (GRAM POSITIVE COCCI IN CLUSTERS). NO NEW ORDERS AT THIS TIME
--- NOTE | 2019-09-11 11:30 | NUR ---
RN NOTES AMIKACIN TROUGH STILL PENDING. SPOKE WITH PHARMACY AND WAS GIVEN THE OK TO ADMINISTER 1100 DOSE OF AMIKACIN
[2019-09-11] MEDS: AMIKACIN 300 MG in IV D5W 100 ML IV SCH (11:48)
[2019-09-11 12:00] VITALS: BP 130/73
[2019-09-11 16:00] VITALS: BP_SYST 132; BP_DIAS 71; BP_DIAS 75
--- NOTE | 2019-09-11 19:03 | NUR ---
RN CLOSING NOTES PATIENT IS RESTING IN BED COMFORTABLY AT THIS TIME. SHE IS ON MECH VENT VIA TRACH, TOLERATING SETTINGS WELL. NO ACUTE CHANGES OCCURRED THROUGHOUT THE SHIFT, VITAL SIGNS ARE STABLE, PT NEEDS HAVE BEEN MET. SAFETY MEASURES HAVE BEEN IMPLEMENTED, CALL LIGHT IS WITHIN REACH, BED IS IN LOWEST AND LOCKED POSITION, SIDE RIALS UP X2, PT HAS BEEN ENDORSED TO NIGHTSHIFT RN FOR WHIT.
--- NOTE | 2019-09-11 19:54 | NUR ---
RN OPENING NOTE PATIENT IN BED WITH HOB ELEVATED, NO S/S OF DISTRESS 02 SAT CURRENTLY AT 99%. PT ON MECH VENT, TOLERATING WELL, PT ON GLUCERNA 1.2 RUNNING AT 65ML/HR. LAKISHA PATENT AND INTACT, WITH GOOD BLOOD RETURN AND FLUSHING WELL. CALL LIGHT WITHIN REACH, BED LOCKED AND IN LOWEST POSITION SIDE RAILS UP X2 WILL CONT TO MONITOR PT.
[2019-09-11 20:00] VITALS: BP 141/77
[2019-09-11] MEDS: ASCORBIC ACID 500 MG TABLET GT SCH (20:43)
[2019-09-11] MEDS: INSULIN GLARGINE, 100 UNIT/ML CARTRIDGE SQ SCH (21:26)
[2019-09-12] VITALS: BP 132/68
[2019-09-12 04:00] VITALS: BP 132/77
--- NOTE | 2019-09-12 04:59 | NUR ---
RN NOTE RECEIVED CALL FROM LICENSED LAND SURVEYOR (LUCILLE), 3/4 BOTTLES POSITIVE FOR GRAM + COCCI AND CLUSTERS. WILL ENDORSE TO AM BRIANNA
[2019-09-12] MEDS: GABAPENTIN 300 MG CAPSULE GT SCH ×3 (05:14→21:11)
[2019-09-12] MEDS: METOCLOPRAMIDE HCL 10 MG/10 ML UDC GT SCH ×4 (05:14→23:43)
[2019-09-12] MEDS: PANTOPRAZOLE 40 MG/PACK PACK GT SCH (05:14)
[2019-09-12] MEDS: BLOOD SUGAR DIAGNOSTIC 1 EACH STRIP IN SCH ×2 (05:30→17:58)
[2019-09-12] MEDS: GLUCERNA 1.2 1,000 ML BOTTLE NG PRN (06:44)
[2019-09-12 06:46] LABS: BASOPHILS # (AUTO) 0.1 /CMM (0.0-0.2); BASOPHILS % (AUTO) 0.5 % (0.0-2.0); HEMATOCRIT 23 % (33-45); HEMOGLOBIN 7.3 g/dL (11.5-14.8); LYMPHOCYTES # (AUTO) 1.9 /CMM (0.8-4.8); LYMPHOCYTES % (AUTO) 9.6 % (20.0-44.0); MEAN CORPUSCULAR HGB CONC 32 g/dl (31.0-36.0); MEAN CORPUSCULAR VOLUME 97 fL (82-100); MONOCYTES # (AUTO) 2.3 /CMM (0.1-1.30); MONOCYTES % (AUTO) 11.6 % (2.0-12.0); NEUTROPHILS # (AUTO) 14.9 /CMM (1.8-8.9); NEUTROPHILS % (AUTO) 76.3 % (43.0-81.0); PLATELET COUNT (AUTO) 482 /CMM (150-450); RED BLOOD CELL COUNT(AUTO) 2.39 MIL/uL (4.0-5.2); WHITE BLOOD COUNT (AUTO) 19.5 K/uL (4.3-11.0)
--- NOTE | 2019-09-12 07:00 | NUR ---
RN CLOSING NOTE PATIENT IN BED WITH HOB ELEVATED, NO S/S OF DISTRESS 02 SAT AT 100%. PT ON MECH VENT, TOLERATING SETTINGS. PT IN NO RESP DISTRESS DURING SHIFT. NO ACUTE CHANGES HAVE OCCURRED. PT ON GLUCERNA 1.2 RUNNING AT 65ML/HR. LAKISHA PATENT AND INTACT, CALL LIGHT WITHIN REACH, BED LOCKED AND IN LOWEST SIDE RAILS UP X2. ENDORSED TO AM RN BLOOD CX,AND FOR WHIT
[2019-09-12 07:05] LABS: CALCIUM, SERUM 10.1 mg/dL (8.5-10.1); MAGNESIUM 2.4 mg/dL (1.8-2.4); PHOSPHORUS 4.1 mg/dL (2.5-4.9); POTASSIUM 3.9 mmol/L (3.5-5.1)
--- NOTE | 2019-09-12 07:35 | NUR ---
RN OPENING NOTES RECEIVED PATIENT RESTING IN BED COMFORTABLY.OBTUNDED, NON-VERBAL, OPEN EYES.ON MECH VENT WITH PRESCRIBED SETTING TOLERATING WELL, NO SOB OR RESP DISTRESS. TELE MONITOR SHOWING ST 102BPM, L NEPHROSTOMY IS INTACT, DAVIDSON CATH IS INTACT AND PATENT WITH 325 ML OUTPUT ON THE BAG.GTUBE IS PATENT AND INTACT, INFUSING GLUCERNA AT 65 ML.HR, TOLERATING WELL, NO RESIDUAL. LAKISHA MIDLINE IS PATENT AND INTACT. SAFETY MEASURES IN PLACE, CALL LIGHT IS WITHIN REACH, BED IS IN LOWEST AND LOCKED POSITION, SIDE RAILS UP X2, WILL CONTINUE TO MONITOR FOR ANY CHANGES.
[2019-09-12 08:00] VITALS: BP 128/64
[2019-09-12] MEDS: FERROUS SULFATE UDC 300 MG/5 ML UDC GT SCH ×2 (08:24→21:12)
[2019-09-12] MEDS: LEVETIRACETAM SOL (5 ML) 100 MG/ML UDC GT SCH ×2 (08:24→21:12)
[2019-09-12] MEDS: DOCUSATE SODIUM LIQ 100 MG/10 ML UDC GT SCH (08:24)
[2019-09-12] MEDS: MULTIVIT W/MINERALS 1 TAB TABLET GT SCH (08:25)
[2019-09-12] MEDS: SENNOSIDES 8.6 MG TABLET GT SCH ×2 (08:25→21:11)
[2019-09-12] MEDS: LINEZOLID 600 MG TABLET GT SCH ×2 (08:25→21:11)
[2019-09-12] MEDS: ACIDOPHILUS/BULGARICUS 1 EACH TAB.CHEW GT SCH ×2 (08:25→17:04)
[2019-09-12] MEDS: OXCARBAZEPINE 150 MG TABLET GT SCH ×2 (08:25→21:11)
[2019-09-12] MEDS: SIMETHICONE SUSP 40 MG/0.6 ML BOTTLE GT SCH ×2 (08:26→21:13)
[2019-09-12 12:00] VITALS: BP 129/69
[2019-09-12] MEDS: EPOETIN ALFA (10,000 UNIT) 10,000 UNIT/ML VIAL SQ SCH (15:53)
[2019-09-12 16:00] VITALS: BP 123/61
--- NOTE | 2019-09-12 19:03 | NUR ---
RN CLOSING NOTES PATIENT IN BED, IN NO APPARENT DISTRESS NOTED. ON VENT WITH PRESCRIBED SETTINGS , SATURATING WELL. AFEBRILE LAST TEMP CHECK @1804 98.9. IV ACCESS ON R UA MIDLINE, INTACT, PATENT AND FLUSHED WELL. DAVIDSON CATHETER BAG AND NEPHROSTOMY BAG EMPTIED. GTUBE INTACT, PATENT AND FLUSHED WELL. NO RESIDUAL NOTED. KEPT PATIENT CLEAN AND DRY. ALL NEEDS MET. SAFETY MEASURES IN PLACED, CALL LIGHT WITHIN REACHED. ENDORSED TO PM RN FOR WHIT.
--- NOTE | 2019-09-12 19:43 | NUR ---
SHERIFF'S OFFICER OPENING NOTES PATIENT RECEIVED RESTING IN BED, OBTUNDED ABLE TO OPEN EYES. ON VENT, TOLERATING CURRENT SETTINGS O2 SAT 100%. TELE MONITOR READING SR 98. IV ACCESS ON R YA MIDLINE #20 PATENT AND INTACT TKO. NEPHROSTOMY BAG IN PLACE AND IN TACT. GTUBE IN PLACE RUNNING GLUCERNA @ 65 ML/HR. DAVIDSON IN PLACE AND INTACT WITH CLEAR YELLOW URINE. SAFETY PRECAUTIONS IN PLACE WITH BED IN LOWEST POSITION, CALL LIGHT WITHIN REACH, BREAKS ON, SIDE RAILS UP, LOCKED. WILL CONTINUE TO MONITOR THROUGHOUT THE NIGHT.
[2019-09-12 20:00] VITALS: BP 129/71
[2019-09-12] MEDS: ASCORBIC ACID 500 MG TABLET GT SCH (21:11)
[2019-09-12] MEDS: ACETAMINOPHEN 650 MG/20.3 ML UDC GT PRN (21:25)
[2019-09-12] MEDS: INSULIN GLARGINE, 100 UNIT/ML CARTRIDGE SQ SCH (21:36)
--- NOTE | 2019-09-12 21:39 | NUR ---
PAINTER TOUCH UP NOTES PRN TYLENOL ADMINISTERED DUE TO FEVER OF 100.1 COOLING MEASURES INITIATED
[2019-09-13] VITALS: BP 134/69
--- NOTE | 2019-09-13 01:00 | NUR ---
NURSE WOUND NOTES CONTACTED LAB AT 2250 FOR AMIKACIN TROUGH LEVELS. ANDIE SAID THEY ARE SENT OUT FOR TEST AND IT WON'T BE READY UNTIL MEDICATION ADMINISTRATION TIME. NO AMIKACIN BAG FOUND IN THE UNIT. CONTACTED [facility] AT 0012 SPOKE WITH APOLLO REDDY'D TO GIVE AMIKACIN WITHOUT TROUGH LEVELS. OBTAINED MED FROM FAST FOOD ASSISTANT RESTAURANT MANAGER MICHELE. CORRECT DOSE CALCULATED AND GIVEN PER UNIT PROTOCOL. APRIL WELL. WILL CONT TO MONITOR
[2019-09-13 04:00] VITALS: BP 146/73
[2019-09-13] MEDS: GABAPENTIN 300 MG CAPSULE GT SCH ×3 (05:21→21:33)
[2019-09-13] MEDS: PANTOPRAZOLE 40 MG/PACK PACK GT SCH (05:21)
[2019-09-13] MEDS: METOCLOPRAMIDE HCL 10 MG/10 ML UDC GT SCH ×3 (05:21→17:01)
[2019-09-13] MEDS: BLOOD SUGAR DIAGNOSTIC 1 EACH STRIP IN SCH ×2 (05:38→17:06)
[2019-09-13 06:32] LABS: BASOPHILS # (AUTO) 0.1 /CMM (0.0-0.2); BASOPHILS % (AUTO) 0.4 % (0.0-2.0); EOSINOPHILS % (AUTO) 1.7 % (0.0-6.0); HEMATOCRIT 22 % (33-45); HEMOGLOBIN 7.1 g/dL (11.5-14.8); LYMPHOCYTES # (AUTO) 1.6 /CMM (0.8-4.8); LYMPHOCYTES % (AUTO) 7.5 % (20.0-44.0); MEAN CORPUSCULAR HGB CONC 32 g/dl (31.0-36.0); MEAN CORPUSCULAR VOLUME 95 fL (82-100); MONOCYTES # (AUTO) 2.6 /CMM (0.1-1.30); MONOCYTES % (AUTO) 12.2 % (2.0-12.0); NEUTROPHILS # (AUTO) 16.8 /CMM (1.8-8.9); NEUTROPHILS % (AUTO) 78.2 % (43.0-81.0); PLATELET COUNT (AUTO) 482 /CMM (150-450); RED BLOOD CELL COUNT(AUTO) 2.35 MIL/uL (4.0-5.2); WHITE BLOOD COUNT (AUTO) 21.5 K/uL (4.3-11.0)
--- NOTE | 2019-09-13 06:41 | NUR ---
RN CLOSING NOTES PATIENT RESTING IN BED, OBTUNDED ABLE TO OPEN EYES. ON VENT, TOLERATING CURRENT SETTINGS O2 SAT 100%. TELE MONITOR READING SR 98. IV ACCESS ON R YA MIDLINE #20 PATENT AND INTACT TKO. NEPHROSTOMY BAG IN PLACE AND IN TACT. GTUBE IN PLACE RUNNING GLUCERNA @ 65 ML/HR. DAVIDSON IN PLACE AND INTACT WITH CLEAR YELLOW URINE DRAINED 450 CC. SAFETY PRECAUTIONS IN PLACE WITH BED IN LOWEST POSITION, CALL LIGHT WITHIN REACH, BREAKS ON, SIDE RAILS UP, LOCKED. PATIENT WAS KEPT CLEAN AND DRY THROUGHOUT THE NIGHT. ALL NEEDS ATTENDED TO. WILL ENDORSE TO ONCOMING SHIFT ABOUT WHIT.
[2019-09-13 06:54] LABS: CALCIUM, SERUM 9.7 mg/dL (8.5-10.1); CREATININE 3.1 mg/dL (0.6-1.3); MAGNESIUM 2.5 mg/dL (1.8-2.4); PHOSPHORUS 4.2 mg/dL (2.5-4.9); POTASSIUM 3.7 mmol/L (3.5-5.1)
--- NOTE | 2019-09-13 07:10 | NUR ---
HOG DROPPER OPENING NOTES RECEIVED REPORT FROM [facility] SHIFT NURSE. PATIENT IN BED, OBTUNDED, ON VENT, TOLERATING CURRENT SETTINGS WELL, NO SIGNS OF RESPIRATORY DISTRESS NOTED. SINUS RHYTHM ON TELE MONITOR. IV ACCESS ON RIGHT UPPER ARM MIDLINE PATENT AND INTACT. NEPHROSTOMY BAG IN PLACE AND IN TACT. GTUBE IN PLACE RUNNING GLUCERNA @ 65 ML/HR. DAVIDSON IN PLACE AND INTACT DRAINING CLEAR YELLOW URINE. SAFETY PRECAUTIONS IN PLACE WITH BED IN LOWEST POSITION, CALL LIGHT WITHIN REACH, BREAKS ON, SIDE RAILS UP, LOCKED.
[2019-09-13 08:00] VITALS: BP 128/61
[2019-09-13] MEDS: ACIDOPHILUS/BULGARICUS 1 EACH TAB.CHEW GT SCH ×2 (09:32→16:27)
[2019-09-13] MEDS: MULTIVIT W/MINERALS 1 TAB TABLET GT SCH (09:32)
[2019-09-13] MEDS: SENNOSIDES 8.6 MG TABLET GT SCH ×2 (09:32→21:33)
[2019-09-13] MEDS: LEVETIRACETAM SOL (5 ML) 100 MG/ML UDC GT SCH ×2 (09:33→21:32)
[2019-09-13] MEDS: LINEZOLID 600 MG TABLET GT SCH ×2 (09:33→21:33)
[2019-09-13] MEDS: DOCUSATE SODIUM LIQ 100 MG/10 ML UDC GT SCH (09:33)
[2019-09-13] MEDS: FERROUS SULFATE UDC 300 MG/5 ML UDC GT SCH ×2 (09:33→21:33)
[2019-09-13] MEDS: OXCARBAZEPINE 150 MG TABLET GT SCH ×2 (09:33→21:33)
[2019-09-13] MEDS: SIMETHICONE SUSP 40 MG/0.6 ML BOTTLE GT SCH ×2 (09:36→21:37)
[2019-09-13 12:00] VITALS: BP 134/59
--- NOTE | 2019-09-13 12:30 | NUR ---
RECEIVED CALL FROM PHARMACY TO INFORM NOC SHIFT NURSE TO HANG AMIKACIN WITHOUT RECEIVING TROUGH RESULTS.
[2019-09-13 16:00] VITALS: BP 134/69
[2019-09-13] MEDS: GLUCERNA 1.2 1,000 ML BOTTLE NG PRN (16:47)
--- NOTE | 2019-09-13 18:58 | NUR ---
PRIMARY CLINICIAN CLOSING NOTES PATIENT IN BED, OBTUNDED, ON VENT, TOLERATING CURRENT SETTINGS WELL, NO SIGNS OF RESPIRATORY DISTRESS NOTED. SINUS RHYTHM ON TELE MONITOR. IV ACCESS ON RIGHT UPPER ARM MIDLINE PATENT AND INTACT. NEPHROSTOMY BAG IN PLACE AND IN TACT. GTUBE IN PLACE RUNNING GLUCERNA @ 65 ML/HR. DAVIDSON IN PLACE AND INTACT DRAINING CLEAR YELLOW URINE. SAFETY PRECAUTIONS IN PLACE WITH BED IN LOWEST POSITION, CALL LIGHT WITHIN REACH, BREAKS ON, SIDE RAILS UP, LOCKED. PATIENT WAS KEPT CLEAN AND DRY THROUGHOUT THE NIGHT. WILL ENDORSE TO ONCOMING SHIFT ABOUT WHIT.
[2019-09-13] MEDS ORDERED: NS 0.9% IR SCH (19:00)
[2019-09-13] MEDS ORDERED: AMIKACIN IR SCH (19:00)
[2019-09-13 20:00] VITALS: BP 115/61
[2019-09-13] MEDS: SODIUM CHLORIDE IV PRN (21:10)
[2019-09-13] MEDS: AMIKACIN 500 MG IV PRN (21:10)
--- NOTE | 2019-09-13 21:20 | NUR ---
EDGE CUTTER NOTES FC REPLACED WITH 3 LUMEN DAVIDSON FOR BLADDER IRRIGATION WITH AMIKACIN PER PROTOCOL. PT TOLERATING WELL. NO S/S DISTRESS NOTED. BED LOCKED, IN LOWEST POSITION. ALL SAFETY MEASURES IN PLACE, WILL CONT TO MONITOR
[2019-09-13] MEDS: ASCORBIC ACID 500 MG TABLET GT SCH (21:33)
[2019-09-13] MEDS: INSULIN GLARGINE, 100 UNIT/ML CARTRIDGE SQ SCH (22:12)
[2019-09-13] MEDS ORDERED: AMIKACIN 300 MG in IV D5W 100 ML IV SCH (23:00)
[2019-09-14] VITALS (8 sets, daily range): BP systolic 119–152; BP diastolic 54–92
[2019-09-14] MEDS ORDERED: AMIKACIN 250 MG/ML VIAL ONE (00:16)
[2019-09-14] MEDS: METOCLOPRAMIDE HCL 10 MG/10 ML UDC GT SCH ×5 (00:23→23:06)
[2019-09-14] MEDS: ACETAMINOPHEN 650 MG/20.3 ML UDC GT PRN (00:48)
--- NOTE | 2019-09-14 01:00 | NUR ---
OCULARIST NOTES CONTACTED LAB AT 2250 FOR AMIKACIN TROUGH LEVELS. ANDIE SAID THEY ARE SENT OUT FOR TEST AND IT WON'T BE READY UNTIL MEDICATION ADMINISTRATION TIME. NO AMIKACIN BAG FOUND IN THE UNIT. CONTACTED [facility] AT 0012 SPOKE WITH RAFAEL REDDY TO GIVE AMIKACIN WITHOUT TROUGH LEVELS. OBTAINED MED FROM METAL ALLOY SCIENTIST MICHELE. CORRECT DOSE CALCULATED AND GIVEN PER UNIT PROTOCOL. APRIL WELL. WILL CONT TO MONITOR Addendum: 09/14/19 at 0532 by FARIDEH ALMEIDA RN WRONG ENTRY
--- NOTE | 2019-09-14 04:45 | NUR ---
ENVIRONMENTAL SERVICES TECH NOTES LAB CALLED TO PROVIDE AMIKACIN TROUGH LEVELS IT WAS 4.9 WILL CONT TO MONITOR
[2019-09-14] MEDS: PANTOPRAZOLE 40 MG/PACK PACK GT SCH (05:36)
[2019-09-14] MEDS: GABAPENTIN 300 MG CAPSULE GT SCH ×3 (05:37→20:26)
[2019-09-14] MEDS: BLOOD SUGAR DIAGNOSTIC 1 EACH STRIP IN SCH ×2 (06:05→18:32)
[2019-09-14 06:35] LABS: BASOPHILS % (AUTO) 0.2 % (0.0-2.0); HEMATOCRIT 22 % (33-45); LYMPHOCYTES # (AUTO) 1.9 /CMM (0.8-4.8); LYMPHOCYTES % (AUTO) 8.6 % (20.0-44.0); MEAN CORPUSCULAR HGB CONC 32 g/dl (31.0-36.0); MEAN CORPUSCULAR VOLUME 95 fL (82-100); MONOCYTES # (AUTO) 2.2 /CMM (0.1-1.30); MONOCYTES % (AUTO) 10.2 % (2.0-12.0); NEUTROPHILS # (AUTO) 17.2 /CMM (1.8-8.9); PLATELET COUNT (AUTO) 455 /CMM (150-450); WHITE BLOOD COUNT (AUTO) 21.8 K/uL (4.3-11.0)
[2019-09-14 06:44] LABS: CALCIUM, SERUM 10.1 mg/dL (8.5-10.1); CREATININE 3.4 mg/dL (0.6-1.3); POTASSIUM 3.6 mmol/L (3.5-5.1)
[2019-09-14 07:44] LABS: HEMOGLOBIN 6.9 g/dL (11.5-14.8)
[2019-09-14] MEDS: DOCUSATE SODIUM LIQ 100 MG/10 ML UDC GT SCH (08:05)
[2019-09-14] MEDS: OXCARBAZEPINE 150 MG TABLET GT SCH ×2 (08:06→20:28)
[2019-09-14] MEDS: LEVETIRACETAM SOL (5 ML) 100 MG/ML UDC GT SCH ×2 (08:06→20:25)
[2019-09-14] MEDS: ACIDOPHILUS/BULGARICUS 1 EACH TAB.CHEW GT SCH ×2 (08:06→16:49)
[2019-09-14] MEDS: MULTIVIT W/MINERALS 1 TAB TABLET GT SCH (08:06)
[2019-09-14] MEDS: FERROUS SULFATE UDC 300 MG/5 ML UDC GT SCH ×2 (08:06→20:26)
[2019-09-14] MEDS: SENNOSIDES 8.6 MG TABLET GT SCH ×2 (08:06→20:28)
[2019-09-14] MEDS: LINEZOLID 600 MG TABLET GT SCH ×2 (08:06→20:29)
[2019-09-14 08:08] LABS: BAND % (MANUAL) 2 % (0.0-5.0); EOSINOPHILS % (MANUAL) 1 % (0-4); LYMPHOCYTES % (MANUAL) 9 % (16-48); MONOCYTES % (MANUAL) 9 % (0-11.0); NEUTROPHILS % (MANUAL) 78 (42-76)
[2019-09-14] MEDS: SIMETHICONE SUSP 40 MG/0.6 ML BOTTLE GT SCH ×2 (09:00→20:38)
[2019-09-14] MEDS: GLUCERNA 1.2 1,000 ML BOTTLE NG PRN (11:42)
[2019-09-14 12:06] LABS: HEMOGLOBIN 6.9 g/dL (11.5-14.8)
--- NOTE | 2019-09-14 12:21 | NUR ---
pipe Doyle for H/H . Awaiting for a order for blood transfusion
--- NOTE | 2019-09-14 16:00 | NUR ---
Received blood for transfusion .Unable to verify , does not match patient's wrist blood bank. Blood returned to lab for investigation.
--- NOTE | 2019-09-14 17:26 | NUR ---
picked up blood second time . Same issue appears , w band blood bank number does not match again. Will return blood to lab.
--- NOTE | 2019-09-14 19:26 | NUR ---
PATIENT IN BED, OBTUNDED, OPEN EYES, ON VENT, TOLERATING CURRENT SETTINGS WELL, NO SIGNS OF RESPIRATORY DISTRESS NOTED. SINUS RHYTHM ON TELE MONITOR. IV ACCESS ON RIGHT UPPER ARM MIDLINE PATENT AND INTACT. NEPHROSTOMY BAG IN PLACE AND INTACT. G-TUBE IN PLACE RUNNING GLUCERNA @ 65 ML/HR. DAVIDSON IN PLACE AND INTACT DRAINING PURULENT YELLOW URINE, BLADDER IRRIGATION CONTINUES ORDERED. SAFETY PRECAUTIONS IN PLACE WITH BED IN LOWEST POSITION, CALL LIGHT WITHIN REACH, SIDE RAILS UP, LOCKED. PATIENT WAS KEPT CLEAN AND DRY THROUGHOUT THE SHIFT. WILL ENDORSE TO NEXT SHIFT WHIT.
[2019-09-14] MEDS ORDERED: AMIKACIN IR SCH (20:00)
[2019-09-14] MEDS ORDERED: NS 0.9% IR SCH (20:00)
--- NOTE | 2019-09-14 20:00 | NUR ---
RN NOTES RECEIVED PT. AWAKE ON BED, NON-VERBAL, SR ON TELE MONITOR HR-87, WITH LEFT NEPHROSTOMY, WITH CONTINUOS BLADDER IRRIGATION, F/C DRAINING CLEAR YELLOW URINE,G-TUBE FEEDING IN PLACE, NO RESIDUAL NOTED, SIDERAILSUPX2 WILL CONTINUE TO MONITOR
[2019-09-14] MEDS: ASCORBIC ACID 500 MG TABLET GT SCH (20:26)
[2019-09-14] MEDS: SODIUM CHLORIDE IV PRN (20:37)
[2019-09-14] MEDS: AMIKACIN 500 MG IV PRN (20:37)
[2019-09-14] MEDS: INSULIN GLARGINE, 100 UNIT/ML CARTRIDGE SQ SCH (22:37)
--- NOTE | 2019-09-14 23:20 | NUR ---
RN NOTES PRBC STARTED , V/ STABLE. WILL MONITOR
--- NOTE | 2019-09-14 23:35 | NUR ---
RN NOTES NO REACTION NOTED FROM THE BLOOD , V/S STABLE
[2019-09-15] VITALS (7 sets, daily range): BP systolic 112–144; BP diastolic 54–71
--- NOTE | 2019-09-15 02:35 | NUR ---
RN NOTES BLOOD TRANSFUSION IS FINISHED, NO REACTION NOTED, V/S STABLE
[2019-09-15] MEDS: GLUCERNA 1.2 1,000 ML BOTTLE NG PRN ×2 (03:50→20:49)
[2019-09-15] MEDS: METOCLOPRAMIDE HCL 10 MG/10 ML UDC GT SCH ×3 (05:12→17:21)
[2019-09-15] MEDS: GABAPENTIN 300 MG CAPSULE GT SCH ×3 (05:12→20:22)
[2019-09-15] MEDS: BLOOD SUGAR DIAGNOSTIC 1 EACH STRIP IN SCH ×2 (05:12→17:38)
[2019-09-15] MEDS: PANTOPRAZOLE 40 MG/PACK PACK GT SCH (05:12)
[2019-09-15 06:42] LABS: BASOPHILS % (AUTO) 0.2 % (0.0-2.0); HEMATOCRIT 24 % (33-45); HEMOGLOBIN 7.7 g/dL (11.5-14.8); LYMPHOCYTES # (AUTO) 1.7 /CMM (0.8-4.8); LYMPHOCYTES % (AUTO) 7.9 % (20.0-44.0); MEAN CORPUSCULAR HGB CONC 32 g/dl (31.0-36.0); MEAN CORPUSCULAR VOLUME 94 fL (82-100); MONOCYTES # (AUTO) 2.3 /CMM (0.1-1.30); MONOCYTES % (AUTO) 10.3 % (2.0-12.0); NEUTROPHILS # (AUTO) 17.5 /CMM (1.8-8.9); NEUTROPHILS % (AUTO) 79.6 % (43.0-81.0); PLATELET COUNT (AUTO) 430 /CMM (150-450); RED BLOOD CELL COUNT(AUTO) 2.53 MIL/uL (4.0-5.2); WHITE BLOOD COUNT (AUTO) 21.9 K/uL (4.3-11.0)
--- NOTE | 2019-09-15 06:42 | NUR ---
RN NOTES AWAKE, NON-VERBAL, NOT IN DISTRESS, G-TUBE FEEDING IN PLACE, NO PAIN NOTED, MORNING CARE RENDERED, SIDERALUPSX2, PT. NEEDS ATTENDED
[2019-09-15 06:53] LABS: CALCIUM, SERUM 9.4 mg/dL (8.5-10.1); CREATININE 3.5 mg/dL (0.6-1.3); POTASSIUM 3.6 mmol/L (3.5-5.1)
[2019-09-15] MEDS: MULTIVIT W/MINERALS 1 TAB TABLET GT SCH (09:06)
[2019-09-15] MEDS: ACIDOPHILUS/BULGARICUS 1 EACH TAB.CHEW GT SCH ×2 (09:07→17:21)
[2019-09-15] MEDS: LEVETIRACETAM SOL (5 ML) 100 MG/ML UDC GT SCH ×2 (09:07→20:21)
[2019-09-15] MEDS: OXCARBAZEPINE 150 MG TABLET GT SCH ×2 (09:07→20:22)
[2019-09-15] MEDS: DOCUSATE SODIUM LIQ 100 MG/10 ML UDC GT SCH (09:07)
[2019-09-15] MEDS: SENNOSIDES 8.6 MG TABLET GT SCH ×2 (09:07→20:22)
[2019-09-15] MEDS: LINEZOLID 600 MG TABLET GT SCH ×2 (09:07→20:21)
[2019-09-15] MEDS: FERROUS SULFATE UDC 300 MG/5 ML UDC GT SCH ×2 (09:07→20:21)
[2019-09-15] MEDS: SIMETHICONE SUSP 40 MG/0.6 ML BOTTLE GT SCH ×2 (09:08→20:24)
--- NOTE | 2019-09-15 17:20 | NUR ---
RN NOTES RECEIVED REPORT FROM BRIANNA GUTIÉRREZ FOR CONTINUATION OF CARE.
--- NOTE | 2019-09-15 18:00 | NUR ---
PATIENT IN BED, OBTUNDED, OPEN EYES, ON VENT, TOLERATING CURRENT SETTINGS WELL, NO SIGNS OF RESPIRATORY DISTRESS NOTED. SZ precautions in place. No SZ activity NOTED DURING SHIFT. SINUS RHYTHM ON TELE MONITOR. IV ACCESS ON RIGHT UPPER ARM MIDLINE PATENT AND INTACT. PT TO HAVE NEW MIDLINE PLACED AND CURRENT MIDLINE SENT FOR CULTURE. NEPHROSTOMY BAG IN PLACE AND INTACT. G-TUBE IN PLACE RUNNING GLUCERNA @ 65 ML/HR. NO RESIDUAL NOTED THROUGHOUT SHIFT. DAVIDSON IN PLACE AND INTACT DRAINING PURULENT YELLOW URINE, BLADDER IRRIGATION CONTINUES ORDERED. SAFETY PRECAUTIONS IN PLACE AND MAINTAINED WITH BED IN LOWEST POSITION, CALL LIGHT WITHIN REACH, SIDE RAILS UP, LOCKED. SIDE RAILS PADDED. PATIENT WAS KEPT CLEAN AND DRY THROUGHOUT THE SHIFT. PT SAFETY MAINTAINED DURING SHIFT. SBAR REPORT GIVEN TO BRIANNA DIOR FOR CONTINUITY OF CARE.
--- NOTE | 2019-09-15 19:25 | NUR ---
RN NOTES PATIENT RESTING COMFORTABLY IN BED. RESPONSIVE TO VERBAL AND TACTILE STIMULI. HOB ELEVATED. NO S/S OF RESPIRATORY DISTRESS. APRIL MECHANICAL VENTILATION WELL ORDERED AC12 TV 500 FIO2 30% PEEP OF 5 WITH SHILEY 8 XLT INTACT AND PATENT. LEFT NEPRHOSTOMY TUBE INTACT. GT INTACT AND PATENT APRIL FEEDING WELL ORDERED. NO RESIDUAL OBSERVED. DAVIDSON CATH INTACT AND PATENT DRAINING YELLOW COLORED URINE VIA BEDSIDE. BED IN LOWEST POSITION, LOCKED. BED ALARM ON. IN NO APPARENT DISTRESS.
--- NOTE | 2019-09-15 20:00 | NUR ---
BLOWER BLAST FURNACE NOTES RECEIVED PT ON THE BED OBTUNDED. TRACHED AND VENTED. NO SOB. SR AND HR IN 100'S. INCONTINENT OF BOWEL AND URINE WITH DAVIDSON TO THE GRAVITY AND BLADDER IRRIGATION AMIKACIN RUNNING ORDERED. NEPHROSTOMY DRAIN IN PLACE WITH MILD ODOR. SKIN WITH MULTIPLE WOUNDS. FEEDING RUNNING ORDERED/PER PROTOCOL. ALL SAFETY MEASURES IN PLACE WILL CONT TO MONITOR
[2019-09-15] MEDS: ASCORBIC ACID 500 MG TABLET GT SCH (20:20)
[2019-09-15] MEDS: MEROPENEM 500 MG in IV NS 0.9% 50 ML IV SCH (21:07)
[2019-09-15] MEDS: SODIUM CHLORIDE IV PRN (22:19)
[2019-09-15] MEDS: AMIKACIN 500 MG IV PRN (22:19)
[2019-09-15] MEDS: INSULIN GLARGINE, 100 UNIT/ML CARTRIDGE SQ SCH (22:25)
[2019-09-16] VITALS (9 sets, daily range): BP systolic 117–139; BP diastolic 56–70
[2019-09-16] MEDS: METOCLOPRAMIDE HCL 10 MG/10 ML UDC GT SCH ×5 (00:27→23:17)
--- NOTE | 2019-09-16 00:30 | NUR ---
COMPUTER SECURITY MANAGER NOTES NEPHROSTOMY DRESSING IS SOILED CHANGED THE DRESSING WITH NO COMPLICATIONS. APRIL WELL
--- NOTE | 2019-09-16 04:15 | NUR ---
INTERACTIVE MEDIA MARKETING DIRECTOR NOTES PT HAS 101.3 TEMP, COOLING MEASURES IMPLEMENTED, GIVEN TYLENOL ORDERED. NEPHROSTOMY TUBE DRESSING SATURATED WITH PURULENT DISCHARGE. DRESSING CHANGED. APRIL WELL. PLATING INSPECTOR AWARE. WILL CONT TO MONITOR
[2019-09-16] MEDS: ACETAMINOPHEN 650 MG/20.3 ML UDC GT PRN (04:24)
[2019-09-16] MEDS: GABAPENTIN 300 MG CAPSULE GT SCH ×3 (04:24→21:05)
[2019-09-16] MEDS: PANTOPRAZOLE 40 MG/PACK PACK GT SCH (06:07)
[2019-09-16 06:12] LABS: BASOPHILS # (AUTO) 0.1 /CMM (0.0-0.2); BASOPHILS % (AUTO) 0.2 % (0.0-2.0); EOSINOPHILS % (AUTO) 2.9 % (0.0-6.0); HEMATOCRIT 24 % (33-45); HEMOGLOBIN 7.6 g/dL (11.5-14.8); LYMPHOCYTES # (AUTO) 1.6 /CMM (0.8-4.8); LYMPHOCYTES % (AUTO) 7.2 % (20.0-44.0); MEAN CORPUSCULAR HGB CONC 32 g/dl (31.0-36.0); MEAN CORPUSCULAR VOLUME 95 fL (82-100); MONOCYTES # (AUTO) 2.1 /CMM (0.1-1.30); MONOCYTES % (AUTO) 9.5 % (2.0-12.0); NEUTROPHILS # (AUTO) 17.6 /CMM (1.8-8.9); NEUTROPHILS % (AUTO) 80.2 % (43.0-81.0); PLATELET COUNT (AUTO) 487 /CMM (150-450); RED BLOOD CELL COUNT(AUTO) 2.52 MIL/uL (4.0-5.2)
[2019-09-16 06:23] LABS: CALCIUM, SERUM 9.9 mg/dL (8.5-10.1); CREATININE 3.5 mg/dL (0.6-1.3); POTASSIUM 4.4 mmol/L (3.5-5.1)
[2019-09-16] MEDS: BLOOD SUGAR DIAGNOSTIC 1 EACH STRIP IN SCH ×2 (06:46→17:40)
--- NOTE | 2019-09-16 07:30 | NUR ---
MS RN OPENING NOTES RECEIVED PATIENT IN BED, ASLEEP, OPENS EYES BUT IS NOT ALERT. PATIENT ON TRACH SATURATING WELL AT 100 %. PATIENT BREATHING EVEN AND UNLABORED, NO SIGNS OF SOB AT THIS TIME. GWEN MIDLINE INTACT AND FLUSHING WELL. NO SIGNS OF PAIN SUCH MOANING OR FACIAL GRIMACING. DAVIDSON IN PLACE. G-TUBE INFUSING gLUCERNA 1.2 AT 65 MLS/HR. SAFETY PRECAUTIONS IN PLACE; BED IN LOW POSITION AND LOCKED, RAILS UP X2, CALL LIGHT WITHIN REACH. WILL CONTINUE TO MONITOR PATIENT.
--- NOTE | 2019-09-16 08:04 | NUR ---
RT NOTE RECEIVED PT MECHANICALLY VENTILATED VIA CUFFED TRACHEOSTOMY TUBE. CUFF INFLATED. TRACH TUBE MIDLINE AND SECURE. VENTILATOR SETTINGS PRESCRIBED. ALARMS SET PER PROTOCOL AND AUDIBLE. VENT PLUGGED IN TO RED OUTLET. AMBU BAG AT BED SIDE. NO DISTRESS NOTED. Addendum: 09/16/19 at 0806 by MAXI BRADY RT Amended: Links added.
--- NOTE | 2019-09-16 08:30 | NUR ---
WOUND CARE CONSULT: PT PRESENTS WITH INCONTINENCE ASSOCIATED SKIN DAMAGE OVER SACRAL SCARRING (SCARRING EXTENDS TO BILATERAL BUTTOCKS AND WAS PRESENT ON ADMISSION). LEFT NEPHROSTOMY TUBE NOTED TO BE LEAKING BROWNISH DRAINAGE. DISCUSSED WITH DR ORELLANA. DEFER TO MD FOR NEPRHOSTOMY TUBE. RECOMMENDATIONS MADE FOR SKIN PROTECTION. DISCUSSED WITH NURSING STAFF. PT ON FIRST STEP [facility]. WILL SEE PRN. TAYLOR IN AGREEMENT WITH PLAN OF CARE. Addendum: 09/16/19 at 0832 by BRI MICHAUD WNDNU Amended: Links added.
[2019-09-16] MEDS: ACIDOPHILUS/BULGARICUS 1 EACH TAB.CHEW GT SCH ×2 (08:57→17:25)
[2019-09-16] MEDS: MULTIVIT W/MINERALS 1 TAB TABLET GT SCH (08:58)
[2019-09-16] MEDS: OXCARBAZEPINE 150 MG TABLET GT SCH ×2 (08:58→21:04)
[2019-09-16] MEDS: LEVETIRACETAM SOL (5 ML) 100 MG/ML UDC GT SCH ×2 (08:58→21:04)
[2019-09-16] MEDS: FERROUS SULFATE UDC 300 MG/5 ML UDC GT SCH ×2 (08:58→21:05)
[2019-09-16] MEDS: SENNOSIDES 8.6 MG TABLET GT SCH ×2 (08:58→21:05)
[2019-09-16] MEDS: DOCUSATE SODIUM LIQ 100 MG/10 ML UDC GT SCH (08:58)
[2019-09-16] MEDS: LINEZOLID 600 MG TABLET GT SCH ×2 (08:58→21:05)
[2019-09-16] MEDS: SIMETHICONE SUSP 40 MG/0.6 ML BOTTLE GT SCH ×2 (09:00→21:03)
[2019-09-16] MEDS: MEROPENEM 500 MG in IV NS 0.9% 50 ML IV SCH ×2 (09:40→21:04)
--- NOTE | 2019-09-16 16:25 | NUR ---
MS RN OPENING NOTES RECEIVED PATIENT IN BED, ASLEEP, OPENS EYES BUT IS NOT ALERT. PATIENT ON TRACH SATURATING WELL AT 100 %. PATIENT BREATHING EVEN AND UNLABORED, NO SIGNS OF SOB AT THIS TIME. GWEN MIDLINE INTACT AND FLUSHING WELL. NO SIGNS OF PAIN SUCH MOANING OR FACIAL GRIMACING. DAVIDSON IN PLACE. G-TUBE INFUSING gLUCERNA 1.2 AT 65 MLS/HR. SAFETY PRECAUTIONS IN PLACE; BED IN LOW POSITION AND LOCKED, RAILS UP X2, CALL LIGHT WITHIN REACH. WILL CONTINUE TO MONITOR PATIENT. Addendum: 09/16/19 at 1629 by ROMEL FELIX RN WRONG TIME
--- NOTE | 2019-09-16 17:41 | NUR ---
SELENIUM PLANT OPERATOR NOTES BS 107. PER SLIDING SCALE NO COVERAGE ADMINISTERED.
--- NOTE | 2019-09-16 18:50 | NUR ---
MS RN CLOSING NOTES PATIENT IN BED, ASLEEP, OPENS EYES BUT IS NOT ALERT. PATIENT ON TRACH SATURATING WELL AT 100 %. PATIENT BREATHING EVEN AND UNLABORED, NO SIGNS OF SOB AT THIS TIME. GWEN MIDLINE INTACT. NO SIGNS OF PAIN SUCH MOANING OR FACIAL GRIMACING. DAVIDSON IN PLACE WITH AN OUTPUT FOR THE DAY 1100 MLS. G-TUBE INFUSION STOPPED AFTER 18 HRS. SAFETY PRECAUTIONS IN PLACE; BED IN LOW POSITION AND LOCKED, RAILS UP X2, CALL LIGHT WITHIN REACH. WILL ENDORSE TO MANAGER COMPENSATION NURSE.
--- NOTE | 2019-09-16 19:40 | NUR ---
PHOTO INTERN NOTE: PATIENT RESTING IN BED, NO ACUTE DISTRESS NOTED. BREATHING EVEN AND UNLABORED, NO SOB NOTED, VENT SETTINGS IN PLACE. MIDLINE TO LAKISHA IN PLACE. LEFT NEPHROSTOMY IN PLACE DRAINING CLEAR YELLOW URINE. G-TUBE IN PLACE, FEEDING STOPPED AT THIS TIME. ISOLATION PRECAUTIONS OBSERVED. BED LOCKED AND IN LOWEST POSITION, CALL LIGHT IN REACH. WILL CONTINUE TO MONITOR. Addendum: 09/16/19 at 2050 by RACHELL JAMES RN TELE SAE GOVEA 78 Addendum: 09/17/19 at 0143 by RACHELL JAMES RN LEFT NEPHROSTOMY DRAINING YELLOW CLOUDY URINE AND DAVIDSON CATHETER DRAINING CLEAR YELLOW URINE WITH BLADDER IRRIGATION IN PLACE.
--- NOTE | 2019-09-16 19:47 | NUR ---
RT NOTE PT RECEIVED TRACHED ON MECHANICAL VENTILATION. AMBU BAG/BACK UP TRACH @ BEDSIDE. SX DONE, TRACH SECURED AND PATENT. ALARMS ON AND AUDIBLE. NO DISTRESS NOTED. WILL MONITOR T/O SHIFT. CONT. PULSE OX CONNECTED. Addendum: 09/16/19 at 1947 by ALIA TEIXEIRA RT Amended: Links added.
[2019-09-16] MEDS: ASCORBIC ACID 500 MG TABLET GT SCH (21:05)
[2019-09-16] MEDS: GLUCERNA 1.2 1,000 ML BOTTLE NG PRN (21:41)
[2019-09-16] MEDS: INSULIN GLARGINE, 100 UNIT/ML CARTRIDGE SQ SCH (22:00)
--- NOTE | 2019-09-16 22:30 | NUR ---
CLINICAL OUTCOMES MANAGER NOTE: PATIENT BLOOD SUGAR LEVEL 74MG/DL, LANTUS HELD AT THIS TIME DUE TO LOW BLOOD SUGAR. NO S/S OF HYPER/HYPOGLYCEMIA NOTED. G-TUBE FEEDING RESTARTED PER MD ORDER. WILL CONTINUE TO MONITOR.
[2019-09-17] VITALS (7 sets, daily range): BP systolic 103–146; BP diastolic 55–76
[2019-09-17] MEDS ORDERED: AMIKACIN 250 MG/ML VIAL ONE (02:53)
[2019-09-17] MEDS: AMIKACIN 500 MG IV PRN (03:15)
[2019-09-17] MEDS: SODIUM CHLORIDE IV PRN (03:15)
--- NOTE | 2019-09-17 03:15 | NUR ---
VALVE SEATER OPERATOR NOTE: PATIENT AMIKIN 500MG IN 100ML NS NOT ON UNIT. CALLED [facility] AND OK FOR US TO MIX IRRIGATION SOLUTION ON FLOOR. OK FOR US TO MIX SOLUTION ON FLOOR. RECEIVED AMIKIN 500MG IN 2ML FROM NURSING FILLER SHREDDING MACHINE LOADER. MEDICATION PREPARED IN 1000ML NS WITH AMIKIN 500MG. MEDICATION ADMINISTERED BLADDER IRRIGATION S ORDERED. WILL CONTINUE TO MONITOR.
[2019-09-17] MEDS: METOCLOPRAMIDE HCL 10 MG/10 ML UDC GT SCH ×4 (05:26→23:31)
[2019-09-17] MEDS: BLOOD SUGAR DIAGNOSTIC 1 EACH STRIP IN SCH ×2 (05:27→18:55)
[2019-09-17] MEDS: PANTOPRAZOLE 40 MG/PACK PACK GT SCH (05:27)
[2019-09-17] MEDS: GABAPENTIN 300 MG CAPSULE GT SCH ×3 (05:27→20:58)
--- NOTE | 2019-09-17 06:10 | NUR ---
SETTER AUTOMATIC SPINNING LATHE NOTE: PATIENT RESTING IN BED, NO ACUTE DISTRESS NOTED. BREATHING EVEN AND UNLABORED, NO SOB NOTED, VENT SETTINGS IN PLACE. MIDLINE TO LAKISHA IN PLACE. LEFT NEPHROSTOMY IN PLACE DRAINED 50ML YELLOW CLOUDY URINE. NOTED STILL WITH BROWNISH DRAINAGE TO NEPHROSTOMY SITE. DAVIDSON CATHETER IN PLACE, DRAINED 900ML OF CLEAR YELLOW URINE. G-TUBE IN PLACE, INFUSING GLUCERNA 1.2 AT 65ML/HR. ISOLATION PRECAUTIONS OBSERVED. BED LOCKED AND IN LOWEST POSITION, CALL LIGHT IN REACH. WILL ENDORSE TO DAY NURSE TO CONTINUE WITH PLAN OF CARE.
--- NOTE | 2019-09-17 07:30 | NUR ---
INITIAL PATIENT RESTING IN BED, NO ACUTE DISTRESS NOTED. BREATHING EVEN AND UNLABORED, NO SOB NOTED, VENT SETTINGS IN PLACE. MIDLINE TO LAKISHA IN PLACE. LEFT NEPHROSTOMY IN PLACE DRAINED 50ML YELLOW CLOUDY URINE. NOTED STILL WITH BROWNISH DRAINAGE TO NEPHROSTOMY SITE. DAVIDSON CATHETER IN PLACE, DRAINED 400ML OF CLEAR YELLOW URINE. G-TUBE IN PLACE, INFUSING GLUCERNA 1.2 AT 65ML/HR. ISOLATION PRECAUTIONS OBSERVED. BED LOCKED AND IN LOWEST POSITION, CALL LIGHT IN REACH. WILL CONTINUE TO MONITOR .
[2019-09-17] MEDS: DOCUSATE SODIUM LIQ 100 MG/10 ML UDC GT SCH (09:09)
[2019-09-17] MEDS: LEVETIRACETAM SOL (5 ML) 100 MG/ML UDC GT SCH ×2 (09:10→20:56)
[2019-09-17] MEDS: FERROUS SULFATE UDC 300 MG/5 ML UDC GT SCH ×2 (09:10→20:56)
[2019-09-17] MEDS: ACIDOPHILUS/BULGARICUS 1 EACH TAB.CHEW GT SCH ×2 (09:12→19:09)
[2019-09-17] MEDS: SENNOSIDES 8.6 MG TABLET GT SCH ×2 (09:12→20:58)
[2019-09-17] MEDS: LINEZOLID 600 MG TABLET GT SCH ×2 (09:12→20:58)
[2019-09-17] MEDS: MULTIVIT W/MINERALS 1 TAB TABLET GT SCH (09:12)
[2019-09-17] MEDS: OXCARBAZEPINE 150 MG TABLET GT SCH ×2 (09:12→20:58)
[2019-09-17] MEDS: MEROPENEM 500 MG in IV NS 0.9% 50 ML IV SCH ×2 (09:15→21:03)
[2019-09-17] MEDS: SIMETHICONE SUSP 40 MG/0.6 ML BOTTLE GT SCH ×2 (09:16→21:03)
--- NOTE | 2019-09-17 13:56 | NUR ---
Pt covid negative pending room assignment back to rehabilitation Mid-line nurse unsuccessful in placing new line.
--- NOTE | 2019-09-17 16:32 | NUR ---
tRANSPORT PT TRANSPORTED TO ROOM 323-1 RN REPORT GIVEN TO CHRISTIE. PT TAKEN IN BED WITH HELP FROM RT AND GLAZE HANDLER. PT TRANSPORTED SAFELY. PT GIVEN BATH AND LINEN CHANGED PT HAD 1 MEDIUM BOWEL MOVEMENT. BROWN LOOSE. PT HAD 500 ML URINARY OUTPUT SINCE SHIFT BEGAN. PT NOW HAS RIGHT FEMORAL PICC LINE. RIGHT UPPER ARM MID-LINE TIP SENT FOR CULTURE.
--- NOTE | 2019-09-17 16:45 | NUR ---
transferred via bed from miguel to .[id number].resp. tx.accompanied nurse.vent set up and settings unchanged.f/c and nephrectomy tubes to drainage.good output from f/c.vs taken.and stable. hooked up to tele rhythm sinus,rate of 87.g-tube intact.no t.feeding till 2139 this kahlil.pt. suctioned by resp. tx.pt. obtunded,but in no distress.
[2019-09-17] MEDS: GLUCERNA 1.2 1,000 ML BOTTLE NG PRN ×2 (16:56→22:30)
--- NOTE | 2019-09-17 19:30 | NUR ---
REBAR BENDER NOTES RECEIVED ON BED,OBTUNDED,OPEN EYES,BREATHING NON LABORED,ON TRACH/VENT,SETTINGS TOLERATED WELL.WITH GT FEEDING OF GLUCERNA TO START AT 2100.WITH RIGHT FEMORAL IV ACCESS,OKAY TO USE PER REPORT BY SASHA REED.DAVIDSON CATH IN PLACE DRAINING YELLOWISH OUTPUT.ON KCI MATTRESS FOR SKIN MANAGEMENT.WILL REPOSITION PER PROTOCOL.WILL CONTINUE TO MONITOR STATUS.
--- NOTE | 2019-09-17 20:00 | NUR ---
WORKERS' COMPENSATION HEARINGS OFFICER NOTES AMIKACIN IV AT 41ML/HR RATE ATTACHED TO DAVIDSON FOR BLADDER IRRIGATION IN PLACE.
[2019-09-17] MEDS: ASCORBIC ACID 500 MG TABLET GT SCH (20:58)
--- NOTE | 2019-09-17 21:00 | NUR ---
TIRE CENTER MANAGER NOTES DUE MEDICATIONS CRUSHED AND ADMINISTERED VIA GT.NOTED 5L RESIDUAL VOLUME.NO NAUSEA,VOMITING NOTED.
--- NOTE | 2019-09-17 21:00 | NUR ---
MANAGER LIGHTING NOTES DUE MARTHA NERI,INFUSING VIA RIGHT FEMORAL PICC LINE.
[2019-09-17] MEDS: INSULIN GLARGINE, 100 UNIT/ML CARTRIDGE SQ SCH (22:00)
--- NOTE | 2019-09-17 22:15 | NUR ---
TRANSFER STATION OPERATOR NOTES ACCU-CHECK BLOOD SUGAR CHECK 90,LANTUS 8 UNITS HELD THIS TIME FOR LOW BLOOD SUGAR.GT FEEDING STARTED ORDERED.
[2019-09-18] VITALS: BP 118/62
--- NOTE | 2019-09-18 02:00 | NUR ---
PLATEN DRIER OPERATOR NOTES NOTED ABDOMEN DISTENDED,CHECK RESIDUAL AND IT WAS 200ML.GT FEEDING HELD AT THIS TIME.
--- NOTE | 2019-09-18 02:30 | NUR ---
INTERNET SITE DESIGNER NOTES HAD BM,CLEANED AND KEPT DRY.
[2019-09-18 04:00] VITALS: BP 117/60
[2019-09-18] MEDS: GABAPENTIN 300 MG CAPSULE GT SCH ×3 (05:11→20:59)
--- NOTE | 2019-09-18 05:30 | NUR ---
GREENHOUSE FLORIST NOTES ACCU-CHECK BLOOD SUGAR CHECK 81,NO INSULIN COVERAGE,GT FEEDING RESUMED AT LOW RATE,RESIDUAL VOLUME THIS TIME IS 15ML.HOB ELEVATED.
[2019-09-18] MEDS: BLOOD SUGAR DIAGNOSTIC 1 EACH STRIP IN SCH ×2 (05:56→18:47)
[2019-09-18] MEDS: METOCLOPRAMIDE HCL 10 MG/10 ML UDC GT SCH ×3 (05:57→17:20)
[2019-09-18] MEDS: PANTOPRAZOLE 40 MG/PACK PACK GT SCH (05:59)
[2019-09-18 06:06] LABS: BASOPHILS # (AUTO) 0.1 /CMM (0.0-0.2); BASOPHILS % (AUTO) 0.3 % (0.0-2.0); EOSINOPHILS % (AUTO) 4.8 % (0.0-6.0); HEMATOCRIT 23 % (33-45); HEMOGLOBIN 7.5 g/dL (11.5-14.8); LYMPHOCYTES # (AUTO) 1.4 /CMM (0.8-4.8); LYMPHOCYTES % (AUTO) 8.2 % (20.0-44.0); MEAN CORPUSCULAR HGB CONC 32 g/dl (31.0-36.0); MEAN CORPUSCULAR VOLUME 94 fL (82-100); MONOCYTES # (AUTO) 1.5 /CMM (0.1-1.30); MONOCYTES % (AUTO) 8.8 % (2.0-12.0); NEUTROPHILS # (AUTO) 13.3 /CMM (1.8-8.9); NEUTROPHILS % (AUTO) 77.9 % (43.0-81.0); PLATELET COUNT (AUTO) 486 /CMM (150-450); RED BLOOD CELL COUNT(AUTO) 2.47 MIL/uL (4.0-5.2); WHITE BLOOD COUNT (AUTO) 17.1 K/uL (4.3-11.0)
[2019-09-18] MEDS: SODIUM CHLORIDE IV PRN (06:13)
[2019-09-18] MEDS: AMIKACIN 500 MG IV PRN (06:13)
[2019-09-18 06:24] LABS: CALCIUM, SERUM 10.2 mg/dL (8.5-10.1); CREATININE 3.3 mg/dL (0.6-1.3); POTASSIUM 4.3 mmol/L (3.5-5.1)
--- NOTE | 2019-09-18 06:26 | NUR ---
PETROLEUM REFINING EQUIPMENT OPERATOR NOTES REMAINS OBTUNDED,NON VERBAL,OPEN EYES,AMIKACIN BLADDER IRRIGATION INFUSING WELL,DAVIDSON DRAINS WELL.REPOSITION PER PROTOCOL.GT FEEDING RESUMED.ABDOMEN REMAINS DISTENDED BUT SOFT.ISOLATION FOR ESBL URINE.IN NO ACUTE DISTRESS.
--- NOTE | 2019-09-18 07:40 | NUR ---
TELE/RN OPENING NOTES RECEIVED ON BED,OBTUNDED,OPEN EYES,BREATHING NON LABORED,ON TRACH/VENT,SETTINGS TOLERATED WELL.WITH GT FEEDING OF GLUCERNA. WITH RIGHT FEMORAL IV ACCESS. DAVIDSON CATH IN PLACE DRAINING YELLOWISH OUTPUT.ON KCI MATTRESS FOR SKIN MANAGEMENT. WILL CONTINUE TO MONITOR.
[2019-09-18 08:00] VITALS: BP 141/73
[2019-09-18] MEDS: MEROPENEM 500 MG in IV NS 0.9% 50 ML IV SCH ×2 (09:00→21:03)
[2019-09-18] MEDS: SENNOSIDES 8.6 MG TABLET GT SCH ×2 (09:01→20:57)
[2019-09-18] MEDS: ACIDOPHILUS/BULGARICUS 1 EACH TAB.CHEW GT SCH ×2 (09:02→17:20)
[2019-09-18] MEDS: MULTIVIT W/MINERALS 1 TAB TABLET GT SCH (09:02)
[2019-09-18] MEDS: LEVETIRACETAM SOL (5 ML) 100 MG/ML UDC GT SCH ×2 (09:02→20:56)
[2019-09-18] MEDS: OXCARBAZEPINE 150 MG TABLET GT SCH ×2 (09:02→21:00)
[2019-09-18] MEDS: FERROUS SULFATE UDC 300 MG/5 ML UDC GT SCH ×2 (09:02→20:54)
[2019-09-18] MEDS: SIMETHICONE SUSP 40 MG/0.6 ML BOTTLE GT SCH ×2 (09:06→21:04)
[2019-09-18 09:11] LABS: BAND % (MANUAL) 4 % (0.0-5.0); EOSINOPHILS % (MANUAL) 7 % (0-4); LYMPHOCYTES % (MANUAL) 10 % (16-48); MONOCYTES % (MANUAL) 6 % (0-11.0); NEUTROPHILS % (MANUAL) 73 (42-76)
[2019-09-18] MEDS: DOCUSATE SODIUM LIQ 100 MG/10 ML UDC GT SCH (09:42)
[2019-09-18] MEDS: LINEZOLID 600 MG TABLET GT SCH ×2 (09:47→21:00)
[2019-09-18 12:00] VITALS: BP 129/69
--- NOTE | 2019-09-18 12:15 | NUR ---
MS/RN NOTES CHECKED PATIENT AND NOTICED OF BLOATED STOMACH, HOLD THE FEEDING AND MD IS AWARE NO NEW ORDER AT THIS TIME. Addendum: 09/18/19 at 1736 by GREGORY HURTADO RN ERROR
--- NOTE | 2019-09-18 14:15 | NUR ---
MS/RN NOTES CHECKED PATIENT AND NOTICED OF BLOATED STOMACH, HOLD THE FEEDING AND GLUCERNA 45ML/HR AND RELAY TO DOCTOR ANDONIAN, PER DOCTOR ANDONIAN JUST MONITOR.
[2019-09-18 16:00] VITALS: BP 113/65
--- NOTE | 2019-09-18 18:30 | NUR ---
TELE/RN NOTES NO OUTPUT FOR NEPHROSTOMY CHARGE NURSE LADAN IS AWARE. WILL CONTINUE TO MONITOR.
--- NOTE | 2019-09-18 19:00 | NUR ---
TELE/RN OPENING NOTES: RECEIVED ON BED,OBTUNDED,OPEN EYES,BREATHING NON LABORED,ON TRACH/VENT,SETTINGS TOLERATED WELL. GT FEEDING OF GLUCERNA IS ON HOLD RIGHT NOW, TO BE STARTED AT 2230. WITH RIGHT FEMORAL IV ACCESS, INTACT AND PATENT. DAVIDSON CATH IN PLACE DRAINING WELL YELLOW CLEAR OUTPUT. STOMACH IS BLOATED UPON INSPECTION. NEPHROSTOMY BAG PRESENT. PER DAY SHIFT NURSE, CARMELA, THERE IS NO OUTPUT THROUGHOUT HER SHIFT. DAY SHIFT CHARGE NURSE AWARE, AND HUMAN RESOURCES SAFETY MANAGER CHARGE NURSE AWARE. ON KCI MATTRESS FOR SKIN MANAGEMENT. WILL REPOSITION PER PROTOCOL. WILL CONTINUE TO MONITOR STATUS.
--- NOTE | 2019-09-18 19:40 | NUR ---
TELE/RN CLOSING NOTES PATIENT IS ON BED,OBTUNDED,OPEN EYES,BREATHING NON LABORED,ON TRACH/VENT,SETTINGS TOLERATED WELL. WITH GT FEEDING OF GLUCERNA. WITH RIGHT FEMORAL IV ACCESS. TELE MONITOR IN PLACE AND READING OF SR 78. DAVIDSON CATH IN PLACE DRAINING YELLOWISH OUTPUT. ON KCI MATTRESS FOR SKIN MANAGEMENT. SEEN AND EXAMINED BY MD WITH NO ORDER AT THIS TIME. ALL DUE MEDS WAS GIVEN. CHECKED AND TURNED PATIENT EVERY 2 HOURS. BED IN LOW POSITION, SIDE RAILS UP X 2. WILL ENDORSED TO MERGERS AND ACQUISITIONS BANKER FOR WHTI.
[2019-09-18 20:00] VITALS: BP 127/56
[2019-09-18] MEDS: ASCORBIC ACID 500 MG TABLET GT SCH (20:59)
[2019-09-18] MEDS: INSULIN GLARGINE, 100 UNIT/ML CARTRIDGE SQ SCH (22:00)
--- NOTE | 2019-09-18 22:37 | NUR ---
TELE/RN NOTES ACCU-CHECK: BLOOD SUGAR CHECK 84, LANTUS 8 UNITS HELD THIS TIME FOR LOW BLOOD SUGAR. GT FEEDING INFUSING ORDERED.
--- NOTE | 2019-09-18 23:30 | NUR ---
TELE/RN NOTES: PT. STABLE AT THIS TIME. TOLERATING VENT SETTINGS. ENDORSED TO BRIANNA CHRISTINA FOR CONTINUITY OF CARE.
[2019-09-19] VITALS: BP 117/60
[2019-09-19 04:18] VITALS: BP 130/70
[2019-09-19] MEDS: METOCLOPRAMIDE HCL 10 MG/10 ML UDC GT SCH ×5 (05:36→23:27)
--- NOTE | 2019-09-19 05:56 | NUR ---
irrigation technicianmanager wellness - Closing Patient remains nonverbal, obtunded, opens eyes, ? tracks ?, appears unable to follow command, attached to tele monitor, SR 70-80s. Tolerating current vent settings well, no desaturations noted throughout shift, pulxe ox attached, alarm audible, SPO 98%. Large watery bowel movements x2 this shift. Bourgeois draining well to gravity, connected to continuous bladder irrigation NS+Amikacin @41mL/hr. L nephrostomy not draining. Noted distended abdomen. Wound care completed, pictures taken. Glucerna @65mL/hr x18hr, will endorse for off @1630 & on @2230. R femoral PICC C/D/I, TKO.
[2019-09-19] MEDS: GABAPENTIN 300 MG CAPSULE GT SCH ×3 (06:21→20:30)
[2019-09-19] MEDS: BLOOD SUGAR DIAGNOSTIC 1 EACH STRIP IN SCH ×2 (06:21→17:47)
[2019-09-19] MEDS: PANTOPRAZOLE 40 MG/PACK PACK GT SCH (06:21)
--- NOTE | 2019-09-19 07:10 | NUR ---
BRIDGE INSTRUCTOR OPENING NOTES: RECEIVED PT IN BED AWAKE WITH EYES OPEN AT THIS TIME. OBTUNDED AND NON-VERBAL. PT ON TRACH/VENT,SETTINGS TOLERATED WELL. AC-12, TV-500, FIO2-30%, PEEP-5. PT ON TELEMETRY VETERINARY TOXICOLOGIST IN THE 70'S.PT ON GLUCERNA 1.2 GT FEEDING OF GLUCERNA RUNNING AT 65ML/HR AND TOLERATING WELL WITH NO RESIDUAL AT THIS TIME. RIGHT FEMORAL IV ACCESS, INTACT AND PATENT. DAVIDSON CATH IN PLACE DRAINING TO GRAVITY WELL YELLOW CLEAR OUTPUT. NEPHROSTOMY BAG PRESENT. PER LICENSE EXAMINER NURSE, [place], THERE IS NO OUTPUT THROUGHOUT HER SHIFT. AND LICENSE EXAMINER CHARGE NURSE AWARE. ON KCI MATTRESS FOR SKIN MANAGEMENT. SAFETY PRECAUTIONS IN PLACE. BED IN LOWEST LOCKED POSITION, SIDE RAILS UP X3, CALL LIGHT WITHIN REACH. WILL REPOSITION PER PROTOCOL. WILL CONTINUE TO MONITOR
[2019-09-19 07:34] LABS: CALCIUM, SERUM 10.4 mg/dL (8.5-10.1); CREATININE 3.3 mg/dL (0.6-1.3); POTASSIUM 4.1 mmol/L (3.5-5.1)
[2019-09-19 07:39] LABS: BASOPHILS # (AUTO) 0.1 /CMM (0.0-0.2); BASOPHILS % (AUTO) 0.4 % (0.0-2.0); EOSINOPHILS % (AUTO) 4.1 % (0.0-6.0); HEMATOCRIT 27 % (33-45); HEMOGLOBIN 8.6 g/dL (11.5-14.8); LYMPHOCYTES # (AUTO) 1.6 /CMM (0.8-4.8); LYMPHOCYTES % (AUTO) 10.3 % (20.0-44.0); MEAN CORPUSCULAR HGB CONC 32 g/dl (31.0-36.0); MEAN CORPUSCULAR VOLUME 95 fL (82-100); MONOCYTES # (AUTO) 1.5 /CMM (0.1-1.30); MONOCYTES % (AUTO) 9.4 % (2.0-12.0); NEUTROPHILS # (AUTO) 11.8 /CMM (1.8-8.9); NEUTROPHILS % (AUTO) 75.8 % (43.0-81.0); PLATELET COUNT (AUTO) 452 /CMM (150-450); RED BLOOD CELL COUNT(AUTO) 2.84 MIL/uL (4.0-5.2); WHITE BLOOD COUNT (AUTO) 15.6 K/uL (4.3-11.0)
[2019-09-19 08:00] VITALS: BP 118/67
[2019-09-19] MEDS: DOCUSATE SODIUM LIQ 100 MG/10 ML UDC GT SCH (09:00)
[2019-09-19] MEDS: ACIDOPHILUS/BULGARICUS 1 EACH TAB.CHEW GT SCH ×2 (09:04→17:33)
[2019-09-19] MEDS: OXCARBAZEPINE 150 MG TABLET GT SCH ×2 (09:04→20:29)
[2019-09-19] MEDS: MULTIVIT W/MINERALS 1 TAB TABLET GT SCH (09:04)
[2019-09-19] MEDS: FERROUS SULFATE UDC 300 MG/5 ML UDC GT SCH ×2 (09:06→20:28)
[2019-09-19] MEDS: SENNOSIDES 8.6 MG TABLET GT SCH ×2 (09:06→20:29)
[2019-09-19] MEDS: SODIUM CHLORIDE IV PRN (09:07)
[2019-09-19] MEDS: LEVETIRACETAM SOL (5 ML) 100 MG/ML UDC GT SCH ×2 (09:07→20:29)
[2019-09-19] MEDS: AMIKACIN 500 MG IV PRN (09:07)
[2019-09-19] MEDS: SIMETHICONE SUSP 40 MG/0.6 ML BOTTLE GT SCH ×2 (09:07→20:25)
[2019-09-19] MEDS: MEROPENEM 500 MG in IV NS 0.9% 50 ML IV SCH ×2 (09:08→20:14)
[2019-09-19] MEDS: LINEZOLID 600 MG TABLET GT SCH ×2 (09:21→20:29)
[2019-09-19] MEDS: GLUCERNA 1.2 1,000 ML BOTTLE NG PRN (13:33)
[2019-09-19 16:00] VITALS: BP 142/72
[2019-09-19] MEDS: EPOETIN ALFA (10,000 UNIT) 10,000 UNIT/ML VIAL SQ SCH (16:47)
--- NOTE | 2019-09-19 16:47 | NUR ---
BEHAVIOR ANALYST NOTES ADMINISTERED EPOGEN 10.000UNITS/1ML SQ NOW DUE TO PHARMACY DELIVERY AT UNIT AT THIS TIME
--- NOTE | 2019-09-19 19:00 | NUR ---
CABLE REELER OPENING NOTES: PT IN BED AWAKE WITH EYES OPEN AT THIS TIME. OBTUNDED AND NON-VERBAL. PT ON G-TUBE FEEDING. TOLERATING WELL WITH NO RESIDUAL AT THIS TIME. RIGHT FEMORAL IV ACCESS, INTACT AND PATENT. DAVIDSON CATH IN PLACE DRAINING TO GRAVITY WELL YELLOW CLEAR OUTPUT OF 850ML. NEPHROSTOMY BAG PRESENT AND DRAINING CLEAR YELLOW OUTPUT WITH OUTPUT OF 150ML. SUCTION PROVIDED NEEDED, PT REPOSITION Q2HRS AND PRN, PT KEPT CLEAN. SAFETY PRECAUTIONS IN PLACE. BED IN LOWEST LOCKED POSITION, SIDE RAILS UP X3, CALL LIGHT WITHIN REACH. WILL REPOSITION PER PROTOCOL. WILL ENDORSE TO NIGHT NURSE FOR WHIT Addendum: 09/20/19 at 0902 by BRANDIE MCCLELLAND RN CABLE REELER CLOSING NOTES
--- NOTE | 2019-09-19 19:24 | NUR ---
TELE/RN OPENING NOTES: RECEIVED PT IN BED AWAKE WITH EYES OPEN AT THIS TIME. OBTUNDED AND NON-VERBAL. PT ON TRACH/VENT,SETTINGS TOLERATED WELL. AC-12, TV-500, FIO2-30%, PEEP-5. PT ON TELEMETRY VOLUNTEER SERVICES DIRECTOR IN THE 70'S.PT ON GLUCERNA 1.2 GT FEEDING OF GLUCERNA ON PAUSE. TO BE STARTED AGAIN AT 2230. NO RESIDUAL AT THIS TIME. RIGHT FEMORAL IV ACCESS, INTACT AND PATENT. DAVIDSON CATH IN PLACE DRAINING TO GRAVITY WELL YELLOW CLEAR OUTPUT. NEPHROSTOMY BAG PRESENT. WILL MONITOR OUTPUT. ON KCI MATTRESS FOR SKIN MANAGEMENT. SAFETY PRECAUTIONS IN PLACE. BED IN LOWEST LOCKED POSITION, SIDE RAILS UP X3, CALL LIGHT WITHIN REACH. WILL REPOSITION PER PROTOCOL. WILL CONTINUE TO MONITOR ACCORDINGLY.
--- NOTE | 2019-09-19 19:51 | NUR ---
RT NOTE PT RECEIVED TRACHED ON MECHANICAL VENTILATION. AMBU BAG @ BEDSIDE. SX DONE, TRACH SECURED AND PATENT. ALARMS ON AND AUDIBLE. VENT PLUGGED TO RED OUTLET. NO DISTRESS NOTED. CONT. PULSE OX CONNECTED. WILL MONITOR T/O SHIFT. Addendum: 09/19/19 at 1951 by BRIEN NEAL RT Amended: Links added.
[2019-09-19 20:00] VITALS: BP 146/93
[2019-09-19 20:02] VITALS: BP 146/93
[2019-09-19] MEDS: ASCORBIC ACID 500 MG TABLET GT SCH (20:29)
[2019-09-19] MEDS: INSULIN GLARGINE, 100 UNIT/ML CARTRIDGE SQ SCH (22:00)
--- NOTE | 2019-09-19 22:00 | NUR ---
TELE/RN NOTES: ACCUCHECK 84. FEEDING STILL ON HOLD. TO BE CONTINUED AT 2230. LANTUS HELD TO PREVENT BLOOD SUGAR FROM DROPPING. WILL CONTINUE TO MONITOR.
--- NOTE | 2019-09-19 22:38 | NUR ---
TELE/RN NOTES: GTUBE FEEDING STARTED NOW. RUNNING AT 65ML/HR. NO RESIDUAL. PT. TOLERATING WELL. HOB ELEVATED.
[2019-09-20] VITALS: BP 120/62
[2019-09-20 00:01] VITALS: BP 145/83
[2019-09-20 04:00] VITALS: BP 128/90
[2019-09-20] MEDS: METOCLOPRAMIDE HCL 10 MG/10 ML UDC GT SCH ×2 (05:28→12:09)
[2019-09-20] MEDS: PANTOPRAZOLE 40 MG/PACK PACK GT SCH (05:28)
[2019-09-20] MEDS: GABAPENTIN 300 MG CAPSULE GT SCH ×2 (05:28→12:09)
[2019-09-20] MEDS: BLOOD SUGAR DIAGNOSTIC 1 EACH STRIP IN SCH (05:51)
--- NOTE | 2019-09-20 06:58 | NUR ---
TELE/RN CLOSING NOTES: Patient remains nonverbal, obtunded, attached to tele monitor, SR 70-80s. Tolerating current vent settings well, no desaturations noted throughout shift, pulse ox attached, alarm audible, SPO 100%. Bourgeois draining well to gravity, connected to continuous bladder irrigation NS+Amikacin @41mL/hr. L nephrostomy drained 225ml, tea colored. Noted distended abdomen. soft upon palpation. Glucerna @65mL/hr x18hr, will endorse for off @1630 & on @2230. R femoral PICC C/D/I, TKO. will endorse to day shift for anselmo.
--- NOTE | 2019-09-20 07:10 | NUR ---
SUPERINTENDENT OVERHEAD DISTRIBUTION OPENING NOTES RECEIVED PT IN BED AWAKE WITH EYES OPEN AT THIS TIME. OBTUNDED AND NON-VERBAL. PT ON TRACH AND MECHANICAL VENTILATION. VENT SETTINGS ARE AC-12, TV-500, FIO2-30%, PEEP-5, PIP 33. PT ON TELEMETRY MIDDLE SCHOOL SCIENCE TEACHER WITH SR 81. PT ON GLUCERNA 1.2 GT FEEDING OF GLUCERNA RUNNING AT 65ML/HR. RIGHT FEMORAL IV ACCESS, INTACT AND PATENT. DAVIDSON CATH IN PLACE DRAINING TO GRAVITY WELL YELLOW CLEAR OUTPUT. NEPHROSTOMY BAG PRESENT AND DRAINING WELL. AMBU BAG AT BEDSIDE, ALARMS ON AND AUDIBLE, PULSE OXIMETER CONNECTED. PT ON KCI MATTRESS FOR SKIN MANAGEMENT. SAFETY PRECAUTIONS IN PLACE. BED IN LOWEST LOCKED POSITION, SIDE RAILS UP X3, CALL LIGHT WITHIN REACH. WILL REPOSITION PER PROTOCOL. WILL CONTINUE TO MONITOR
[2019-09-20 07:30] LABS: BASOPHILS # (AUTO) 0.1 /CMM (0.0-0.2); BASOPHILS % (AUTO) 0.4 % (0.0-2.0); HEMATOCRIT 28 % (33-45); LYMPHOCYTES # (AUTO) 1.6 /CMM (0.8-4.8); LYMPHOCYTES % (AUTO) 11.8 % (20.0-44.0); MEAN CORPUSCULAR HGB CONC 32 g/dl (31.0-36.0); MEAN CORPUSCULAR VOLUME 95 fL (82-100); MONOCYTES # (AUTO) 1.2 /CMM (0.1-1.30); MONOCYTES % (AUTO) 9.1 % (2.0-12.0); NEUTROPHILS # (AUTO) 10.1 /CMM (1.8-8.9); NEUTROPHILS % (AUTO) 73.7 % (43.0-81.0); PLATELET COUNT (AUTO) 478 /CMM (150-450); RED BLOOD CELL COUNT(AUTO) 2.96 MIL/uL (4.0-5.2); WHITE BLOOD COUNT (AUTO) 13.7 K/uL (4.3-11.0)
[2019-09-20 07:50] LABS: CALCIUM, SERUM 10.7 mg/dL (8.5-10.1); CREATININE 3.3 mg/dL (0.6-1.3); POTASSIUM 4.2 mmol/L (3.5-5.1)
[2019-09-20 08:00] VITALS: BP 80/34
[2019-09-20] MEDS: MEROPENEM 500 MG in IV NS 0.9% 50 ML IV SCH (09:57)
[2019-09-20] MEDS: MULTIVIT W/MINERALS 1 TAB TABLET GT SCH (09:58)
[2019-09-20] MEDS: LINEZOLID 600 MG TABLET GT SCH (09:58)
[2019-09-20] MEDS: SENNOSIDES 8.6 MG TABLET GT SCH (09:59)
[2019-09-20] MEDS: ACIDOPHILUS/BULGARICUS 1 EACH TAB.CHEW GT SCH (10:00)
[2019-09-20] MEDS: FERROUS SULFATE UDC 300 MG/5 ML UDC GT SCH (10:00)
[2019-09-20] MEDS: AMIKACIN 500 MG IV PRN (10:01)
[2019-09-20] MEDS: DOCUSATE SODIUM LIQ 100 MG/10 ML UDC GT SCH (10:01)
[2019-09-20] MEDS: SODIUM CHLORIDE IV PRN (10:01)
[2019-09-20] MEDS: LEVETIRACETAM SOL (5 ML) 100 MG/ML UDC GT SCH (10:02)
[2019-09-20] MEDS: SIMETHICONE SUSP 40 MG/0.6 ML BOTTLE GT SCH (10:03)
[2019-09-20 10:13] LABS: BAND % (MANUAL) 4 % (0.0-5.0); EOSINOPHILS % (MANUAL) 1 % (0-4); LYMPHOCYTES % (MANUAL) 20 % (16-48); METAMYELOCYTES % 1 % (0-0); MONOCYTES % (MANUAL) 7 % (0-11.0); MYELOCYTES % 1 % (0-0); NEUTROPHILS % (MANUAL) 66 (42-76)
[2019-09-20] MEDS: OXCARBAZEPINE 150 MG TABLET GT SCH (10:14)
--- NOTE | 2019-09-20 11:00 | NUR ---
GAVE REPORT AND ENDORSED PT CARE TO BRIANNA LLOYD
[2019-09-20] MEDS ORDERED: Linezolid GT (11:03)
[2019-09-20] MEDS ORDERED: MERO500V21 IV (11:03)
--- NOTE | 2019-09-20 15:15 | NUR ---
MS PROBATION AND PATROL AGENT NOTE PT DISCHARGED TO [facility] SUBACUTE IN MEDICALLY STABLE CONDITION VIA GURNEY. PT IS OBTUNDED W/ SPONTANEOUS EYE OPENING. CURRENTLY ON VENT AND TOLERATING SETTINGS WELL. RT AT BEDSIDE FOR TRANSFER. GT INTACT, DRESSING CHANGE, TOLERATING TF WELL W/ GLUCERNA 1.2@65ML/HR X18 HOURS. HAS DAVIDSON CATH, DRAINING YELLOW URINE, TUBING FREE OF KINKS. NEPHROSTOMY TUBE IN PLACE, DRESSING CHANGED. R FEMORAL PICC LINE INTACT, DRESSING CHANGED TODAY DURING SHIFT. MEPILEX APPLIED TO SACRAL. PICTURES TAKEN AND PLACED IN CHART. REPORT GIVEN TO BRIANNA GOMEZ IN SUBACUTE. TRANSFERRED PT IN MEDICALLY STABLE CONDITION W/ RT.
== END 2019-09-20 15:19 | DRG 870 ==
LOC: TELE-TD 17:16 → TELE1 23:38 → TELE 09-17 15:42
PROVIDERS: ADMIT Student in an Organized Health Care Education/Training Program; ATTEND Registered Nurse
PROC: 5A1955Z Respiratory Ventilation, Greater than 96 Consecutive Hours (ICD-10-PCS; principal; 2019-09-08)
PROC: 30233N1 Transfusion of Nonautologous Red Blood Cells into Peripheral Vein, Percutaneous Approach (ICD-10-PCS; 2019-09-14)
PROC: 05HB33Z Insertion of Infusion Device into Right Basilic Vein, Percutaneous Approach (ICD-10-PCS; 2019-09-14)
PROC: 06HY33Z Insertion of Infusion Device into Lower Vein, Percutaneous Approach (ICD-10-PCS; 2019-09-17)
DX: A41.1 Sepsis due to other specified staphylococcus (principal); J18.9 Pneumonia, unspecified organism; N17.0 Acute kidney failure with tubular necrosis; E43 Unspecified severe protein-calorie malnutrition; J96.10 Chronic respiratory failure, unspecified whether with hypoxia or hypercapnia; N39.0 Urinary tract infection, site not specified; Z16.12 Extended spectrum beta lactamase (ESBL) resistance; Z99.11 Dependence on respirator [ventilator] status; N18.4 Chronic kidney disease, stage 4 (severe); J98.11 Atelectasis; I31.3 Pericardial effusion (noninflammatory); G93.49 Other encephalopathy; M62.82 Rhabdomyolysis; S37.012A Minor contusion of left kidney, initial encounter; G40.909 Epilepsy, unspecified, not intractable, without status epilepticus; I12.9 Hypertensive chronic kidney disease with stage 1 through stage 4 chronic kidney disease, or unspecified chronic kidney disease; E11.22 Type 2 diabetes mellitus with diabetic chronic kidney disease; Z93.0 Tracheostomy status; D63.1 Anemia in chronic kidney disease; Y95 Nosocomial condition; R13.10 Dysphagia, unspecified; B96.89 Other specified bacterial agents as the cause of diseases classified elsewhere; Z93.6 Other artificial openings of urinary tract status; Z87.442 Personal history of urinary calculi; K80.20 Calculus of gallbladder without cholecystitis without obstruction; K21.9 Gastro-esophageal reflux disease without esophagitis; E87.6 Hypokalemia; E78.5 Hyperlipidemia, unspecified; N20.0 Calculus of kidney; N28.89 Other specified disorders of kidney and ureter; K82.8 Other specified diseases of gallbladder; E87.70 Fluid overload, unspecified; D53.9 Nutritional anemia, unspecified; D63.8 Anemia in other chronic diseases classified elsewhere; Z93.1 Gastrostomy status; F09 Unspecified mental disorder due to known physiological condition; Z79.899 Other long term (current) drug therapy; Z79.82 Long term (current) use of aspirin; Z79.51 Long term (current) use of inhaled steroids; Z79.4 Long term (current) use of insulin; D50.9 Iron deficiency anemia, unspecified
CPT/HCPCS: 31720; 36410; 36415; 36569; 36600; 71045-TC; 71046; 80048-TC; 80053-TC; 80150; 81000-TC; 82550-TC; 82570-TC; 82728-TC; 82803-TC; 82962-TC; 83540-TC; 83605-TC; 83615-TC; 83735-TC; 83970; 84100-TC; 84155-TC; 84300-TC; 84484-TC; 85025-TC; 85027-TC; 86140-TC; 86850-TC; 86921-TC; 87040-TC; 87070-TC; 87081-TC; 87086-TC; 87186-TC; 93307-TC; 94002-TC; 94003-TC; 94760-TC; 94762-TC; 94799-TC; 99082-TC; A4216; A4623; A6253; C1751; G0378; J0278; J0885; J1815; J1953; J2185; J7030; J7040; J7050; J7060; J8597; P9016-BL

== ENCOUNTER 2019-09-20 18:17 | Inpatient (IN) | payer MEDICARE, MEDICAID ==
[~2019-09-20] VITALS: Ht 170.2 cm; Wt 75.3 kg
--- NOTE | 2019-09-20 15:15 | NUR ---
Admitted 49-year-old female pt from [facility] with diagnoses of Chronic Respiratory Failure, Ventilator Dependent, Tracheostomy, Dysphagia, Encephalopathy, Seizure Disorder, Diabetes Mellitus, Chronic Kidney Disease, Anemia, GERD, UTI E coli ESBL, Nephrostomy. Pt awake upon admission. BP 140/78 HR 89 T 98.5 R 12. Pt is on a mechanical ventilator with setting AC 12 VT 500 FiO2 30% PEEP +5. She has a trach Shiley # 8 XLT. Started G-tube feeding Glucerna 1.2 at 65 mL/hr. Placed on contact isolation for ESBL urine. Reminded staff to observe isolation precautions and proper handwashing. Pt has a Bourgeois catheter and a left nephrostomy. She also has a right femoral PICC line, triple lumen. Verified orders with Dr Luis. He said he will see pt tomorrow. Made pt clean and comfortable in bed. Notified Beckie that pt is in Subacute.
[~2019-09-20 18:17] MED LIST changes: +Linezolid GT; +MERO500V21 IV; -PIPE2.257 IV; -POVI480S2 TP; -SOD62.5V IV
[2019-09-20] MEDS ORDERED: PANTOPRAZOLE 40 MG/PACK PACK GT SCH (18:22)
[2019-09-20] MEDS ORDERED: GLUCERNA 1.2 1,000 ML BOTTLE NG PRN (18:22)
[2019-09-20] MEDS ORDERED: AMIKACIN 250 MG/ML VIAL IV SCH (18:22)
[2019-09-20] MEDS ORDERED: MAG HYDROX/AL HYDROX/SIMETH 30 ML UDC GT PRN (18:22)
[2019-09-20] MEDS ORDERED: EPOETIN ALFA (10,000 UNIT) 10,000 UNIT/ML VIAL SQ SCH (18:22)
[2019-09-20] MEDS ORDERED: ACETAMINOPHEN 650 MG/20.3 ML UDC GT PRN (18:22)
[2019-09-20] MEDS ORDERED: AMIKACIN 500 MG IV PRN (18:22)
[2019-09-20] MEDS ORDERED: DEXTROSE 50%-WATER 50 ML DISP.SYRIN IV PRN ×2 (18:22→18:39)
[2019-09-20] MEDS ORDERED: BLOOD SUGAR DIAGNOSTIC 1 EACH STRIP IN SCH (18:22)
[2019-09-20] MEDS ORDERED: MEROPENEM 500 MG in IV NS 0.9% 50 ML IV SCH (18:22)
[2019-09-20] MEDS ORDERED: SODIUM CHLORIDE IV PRN (18:22)
[2019-09-20] MEDS ORDERED: LORAZEPAM 1 MG TABLET GT PRN (18:22)
[2019-09-20] MEDS ORDERED: ACETAMINOPHEN 650 MG/20 ML UDC- SA PATIENTS-PAIN ONLY GT PRN (18:30)
[2019-09-20] MEDS ORDERED: ACETAMINOPHEN 650 MG/20 ML UDC- SA PATIENTS-FEVER ONLY GT PRN (18:30)
[2019-09-20] MEDS ORDERED: HYDROGEN PEROXIDE 480 ML BOTTLE TP PRN (18:45)
[2019-09-20] MEDS ORDERED: ALBUTEROL FS 2.5 MG/3 ML VIAL.NEB NEB PRN (19:00)
[2019-09-20] MEDS ORDERED: Z GUARD REMEDY 4 OZ OINT TP PRN (19:30)
[2019-09-20 20:00] VITALS: BP 145/79
[2019-09-20] MEDS: GLUCERNA 1.2 1,000 ML BOTTLE NG PRN (20:23)
[2019-09-20] MEDS: FERROUS SULFATE UDC 300 MG/5 ML UDC GT SCH (20:25)
[2019-09-20] MEDS: LEVETIRACETAM SOL (5 ML) 100 MG/ML UDC GT SCH (20:25)
[2019-09-20] MEDS: HYDROGEN PEROXIDE 480 ML BOTTLE TP SCH (20:26)
[2019-09-20] MEDS: BLOOD SUGAR DIAGNOSTIC 1 EACH STRIP IN SCH (20:26)
[2019-09-20] MEDS: Z GUARD REMEDY 4 OZ OINT TP SCH (20:26)
[2019-09-20] MEDS: SIMETHICONE SUSP 40 MG/0.6 ML BOTTLE GT SCH (20:27)
[2019-09-20] MEDS: SENNOSIDES 8.6 MG TABLET GT SCH (20:28)
[2019-09-20] MEDS: LINEZOLID 600 MG TABLET GT SCH (20:28)
[2019-09-20] MEDS: GABAPENTIN 300 MG CAPSULE GT SCH (20:28)
[2019-09-20] MEDS: ASCORBIC ACID 500 MG TABLET GT SCH (20:28)
[2019-09-20] MEDS: OXCARBAZEPINE 150 MG TABLET GT SCH (20:28)
--- NOTE | 2019-09-20 21:04 | NUR ---
RT NOTE PT RECEIVED TRACHED ON MECHANICAL VENTILATION. CUFF CHECKED VIA CUTTER TENDER. AMBU BAG/BACK UP TRACH @ BEDSIDE. SX DONE, TRACH SECURED AND PATENT. ALARMS ON AND AUDIBLE. NO DISTRESS NOTED. CONT. PULSE OX CONNECTED. WILL MONITOR T/O SHIFT. Addendum: 09/20/19 at 2105 by BRIEN NEAL RT Amended: Links added.
[2019-09-20] MEDS: MEROPENEM 500 MG in IV NS 0.9% 50 ML IV SCH (21:25)
[2019-09-20] MEDS: INSULIN REGULAR, HUMAN 100 UNIT/ML 3 ML VIAL SQ PRN (22:16)
[2019-09-20] MEDS: INSULIN GLARGINE, 100 UNIT/ML CARTRIDGE SQ SCH (22:24)
[2019-09-20] MEDS: METOCLOPRAMIDE HCL 10 MG/10 ML UDC GT SCH (23:03)
[2019-09-21] MEDS: GABAPENTIN 300 MG CAPSULE GT SCH ×3 (04:05→21:51)
[2019-09-21] MEDS: METOCLOPRAMIDE HCL 10 MG/10 ML UDC GT SCH ×3 (05:19→18:00)
[2019-09-21] MEDS: OMEPRAZOLE 20 MG CAPSULE.DR GT SCH (05:19)
[2019-09-21 07:55] VITALS: BP 143/85
[2019-09-21] MEDS: SIMETHICONE SUSP 40 MG/0.6 ML BOTTLE GT SCH ×2 (09:00→21:51)
[2019-09-21] MEDS: Z GUARD REMEDY 4 OZ OINT TP SCH ×2 (09:00→21:51)
[2019-09-21] MEDS: HYDROGEN PEROXIDE 480 ML BOTTLE TP SCH ×2 (09:00→21:00)
[2019-09-21] MEDS: ACIDOPHILUS/BULGARICUS 1 EACH TAB.CHEW GT SCH ×2 (09:00→17:00)
[2019-09-21] MEDS: DOCUSATE SODIUM LIQ 100 MG/10 ML UDC GT SCH (09:00)
[2019-09-21] MEDS: LEVETIRACETAM SOL (5 ML) 100 MG/ML UDC GT SCH ×2 (09:00→21:51)
[2019-09-21] MEDS: LINEZOLID 600 MG TABLET GT SCH ×2 (09:00→21:51)
[2019-09-21] MEDS: OXCARBAZEPINE 150 MG TABLET GT SCH ×2 (09:00→21:51)
[2019-09-21] MEDS: MULTIVIT W/MINERALS 1 TAB TABLET GT SCH (09:00)
[2019-09-21] MEDS: SENNOSIDES 8.6 MG TABLET GT SCH ×2 (09:00→21:51)
[2019-09-21] MEDS: BLOOD SUGAR DIAGNOSTIC 1 EACH STRIP IN SCH ×2 (09:00→21:59)
[2019-09-21] MEDS: FERROUS SULFATE UDC 300 MG/5 ML UDC GT SCH ×2 (09:00→21:50)
--- NOTE | 2019-09-21 09:30 | NUR ---
Seen and examined by Dr. Kumar, no new order given at this time.
[2019-09-21] MEDS: MEROPENEM 500 MG in IV NS 0.9% 50 ML IV SCH ×2 (09:54→21:57)
[2019-09-21 12:00] VITALS: BP 147/91
--- NOTE | 2019-09-21 13:32 | NUR ---
INTAKE PAPERWORK: Patient Admitted to [facility] on Friday, September 20, 2019 at 1515. This SW called the patients sister, Beckie Chu [phone] on 09/21/2019 at 1225 to review the intake paperwork: (Patient Right's Acknowledgement, Documentation of Preferred Intensity of Care, Conditions of Admission, [facility] Agreement, and Voluntary Prior Express Consent form and An Important Message from Medicare) to observe visitation restrictions set in place by [facility] due to Coronavirus Pandemic. Beckie expressed understanding and was agreeable reviewing intake paperwork with SW over the phone and providing a wet signature when paperwork arrives via mail. This SW addressed all of the familys questions. Beckie Chu stated that the intensity of care provided to the pt. should be Full Code: Maximum Treatment and CPR. SW mailed intake paperwork to: Beckie Chu [[address] [place], [place] [id number]; [phone]] along with a copy of the Bill of Rights, patient information guide and [facility] resident and family guidelines for Beckie to read over and sign. SW provided Beckie with a pre-paid envelope. SW will await for paperwork to be completed and mailed back by Beckie. STEPHEN will follow up as needed to assist the family with completing intake paperwork. STEPHEN also completed the initial psychosocial assessment with Beckie as patient is non-communicative. Per Beckie, she is the patients conservator and will provide [facility] with a copy of the conservatorship paperwork.
[2019-09-21] MEDS: GLUCERNA 1.2 1,000 ML BOTTLE NG PRN (15:32)
--- NOTE | 2019-09-21 16:00 | NUR ---
Seen and examined by Dr. Luis, resident awake, eyes open and respond to verbal stimulation. Patient on Merrem IV and Zyvox via GT for sepsis. No adverse reaction noted. R femoral line and nephrostomy tube dressing changed, no bleeding noted. Nephrostomy tube draining dark yellow jason in color. F/C draining clear yellow urine, no hematuria. No new order given at this time.
--- NOTE | 2019-09-21 16:21 | NUR ---
Resources for Family: During phone conversation regarding intake paperwork, the patients sister, Beckie Chu [phone] requested list of food panties this SW had previously offered. SW emailed Beckie a list of food pantries near her home to ([email or web address]) including: [employer] [[address], [place] [address]]; [employer] [facility] [employer] [[address] [facility] [address] [facility] Oajcv: Thursday-Thursday 9:00 AM - 12:00 PM]; [facility] [[address] [facility] [address] [facility] Hours: Thursday - 9:00 AM - 1:00 PM]; [facility] [[address] [facility] [facility] Pnmzg: Thursday - 10:00 AM - 3:00 PM & Thursday 10:00 AM -12:00 PM , 3rd Sat 10am-12pm]. Beckie expressed appreciation. SW will continue to monitor the patient and family's psychosocial needs.
--- NOTE | 2019-09-21 19:37 | NUR ---
RT NOTE PT RECEIVED TRACHED ON MECHANICAL VENTILATION. AMBU BAG/BACK UP TRACH @ BEDSIDE. SX DONE, TRACH SECURED AND PATENT. ALARMS ON AND AUDIBLE. NO DISTRESS NOTED. CONT. PULSE OX CONNECTED. WILL MONITOR T/O SHIFT. Addendum: 09/21/19 at 1937 by ALIA TEIXEIRA RT Amended: Links added.
[2019-09-21 20:00] VITALS: BP 140/74
[2019-09-21] MEDS: ASCORBIC ACID 500 MG TABLET GT SCH (21:51)
[2019-09-21] MEDS: INSULIN REGULAR, HUMAN 100 UNIT/ML 3 ML VIAL SQ PRN (21:59)
[2019-09-21] MEDS: INSULIN GLARGINE, 100 UNIT/ML CARTRIDGE SQ SCH (22:02)
[2019-09-22] MEDS: METOCLOPRAMIDE HCL 10 MG/10 ML UDC GT SCH ×4 (00:14→17:25)
[2019-09-22] MEDS: GABAPENTIN 300 MG CAPSULE GT SCH ×3 (05:12→20:24)
[2019-09-22] MEDS: OMEPRAZOLE 20 MG CAPSULE.DR GT SCH (05:12)
[2019-09-22] MEDS: GLUCERNA 1.2 1,000 ML BOTTLE NG PRN (06:52)
[2019-09-22 07:39] LABS: BASOPHILS # (AUTO) 0.1 /CMM (0.0-0.2); BASOPHILS % (AUTO) 0.5 % (0.0-2.0); HEMATOCRIT 28 % (33-45); HEMOGLOBIN 8.9 g/dL (11.5-14.8); LYMPHOCYTES # (AUTO) 1.6 /CMM (0.8-4.8); LYMPHOCYTES % (AUTO) 9.9 % (20.0-44.0); MEAN CORPUSCULAR HGB CONC 32 g/dl (31.0-36.0); MEAN CORPUSCULAR VOLUME 96 fL (82-100); MONOCYTES # (AUTO) 1.4 /CMM (0.1-1.30); MONOCYTES % (AUTO) 8.6 % (2.0-12.0); NEUTROPHILS # (AUTO) 12.5 /CMM (1.8-8.9); PLATELET COUNT (AUTO) 456 /CMM (150-450); RED BLOOD CELL COUNT(AUTO) 2.91 MIL/uL (4.0-5.2)
[2019-09-22 08:00] VITALS: BP 142/78
[2019-09-22 08:05] LABS: ALBUMIN 1.5 g/dL (3.4-5.0); BILIRUBIN,TOTAL 0.1 mg/dL (0.2-1.0); CALCIUM, SERUM 10.7 mg/dL (8.5-10.1); CREATININE 3.1 mg/dL (0.6-1.3); MAGNESIUM 3.2 mg/dL (1.8-2.4); POTASSIUM 5.1 mmol/L (3.5-5.1); TOTAL PROTEIN, SERUM 9.7 g/dL (6.4-8.2)
[2019-09-22] MEDS: LEVETIRACETAM SOL (5 ML) 100 MG/ML UDC GT SCH ×2 (08:23→20:24)
[2019-09-22] MEDS: SENNOSIDES 8.6 MG TABLET GT SCH ×2 (08:23→20:24)
[2019-09-22] MEDS: FERROUS SULFATE UDC 300 MG/5 ML UDC GT SCH ×2 (08:23→20:23)
[2019-09-22] MEDS: DOCUSATE SODIUM LIQ 100 MG/10 ML UDC GT SCH (08:23)
[2019-09-22] MEDS: OXCARBAZEPINE 150 MG TABLET GT SCH ×2 (08:23→20:24)
[2019-09-22] MEDS: MULTIVIT W/MINERALS 1 TAB TABLET GT SCH (08:23)
[2019-09-22] MEDS: SIMETHICONE SUSP 40 MG/0.6 ML BOTTLE GT SCH ×2 (08:23→20:24)
[2019-09-22] MEDS: ACIDOPHILUS/BULGARICUS 1 EACH TAB.CHEW GT SCH ×2 (08:23→17:25)
[2019-09-22] MEDS: LINEZOLID 600 MG TABLET GT SCH ×2 (08:23→20:24)
[2019-09-22] MEDS: BLOOD SUGAR DIAGNOSTIC 1 EACH STRIP IN SCH ×2 (08:29→21:18)
[2019-09-22] MEDS: INSULIN REGULAR, HUMAN 100 UNIT/ML 3 ML VIAL SQ PRN ×2 (08:30→21:19)
[2019-09-22] MEDS: Z GUARD REMEDY 4 OZ OINT TP SCH ×2 (09:00→21:18)
[2019-09-22] MEDS: HYDROGEN PEROXIDE 480 ML BOTTLE TP SCH ×2 (09:00→21:00)
[2019-09-22] MEDS: MEROPENEM 500 MG in IV NS 0.9% 50 ML IV SCH ×2 (09:33→21:00)
--- NOTE | 2019-09-22 19:44 | NUR ---
RT NOTES PT RECEIVED TRACHED ON [facility] VENT ON CHARTED SETTINGS. NO SIGNS OF RESP DISTRESS NOTED AT THIS TIME. AIRWAY PATENT AND SECURED. SENIOR COMPENSATION ANALYST DONE. PT SUCTIONED. ALARMS SET AND AUDIBLE. AMBUBAG AND SPARE TRACH AT [facility]. VENT PLUGGED INTO RED OUTLET. WILL CONT TO MONITOR. Addendum: 09/22/19 at 2305 by EDDI GUTIÉRREZ RT Amended: Links added.
[2019-09-22 19:57] VITALS: BP 152/77
[2019-09-22] MEDS: ASCORBIC ACID 500 MG TABLET GT SCH (20:24)
[2019-09-22] MEDS: INSULIN GLARGINE, 100 UNIT/ML CARTRIDGE SQ SCH (21:21)
[2019-09-23] MEDS: METOCLOPRAMIDE HCL 10 MG/10 ML UDC GT SCH ×4 (00:19→17:07)
[2019-09-23] MEDS: OMEPRAZOLE 20 MG CAPSULE.DR GT SCH (05:07)
[2019-09-23] MEDS: GABAPENTIN 300 MG CAPSULE GT SCH ×3 (05:07→21:18)
[2019-09-23 07:53] VITALS: BP_SYST 110; BP_SYST 138; BP_DIAS 62; BP_DIAS 66
[2019-09-23] MEDS: FERROUS SULFATE UDC 300 MG/5 ML UDC GT SCH ×2 (09:00→21:18)
[2019-09-23] MEDS: ACIDOPHILUS/BULGARICUS 1 EACH TAB.CHEW GT SCH ×2 (09:00→17:07)
[2019-09-23] MEDS: SENNOSIDES 8.6 MG TABLET GT SCH ×2 (09:00→21:18)
[2019-09-23] MEDS: MULTIVIT W/MINERALS 1 TAB TABLET GT SCH (09:00)
[2019-09-23] MEDS: SIMETHICONE SUSP 40 MG/0.6 ML BOTTLE GT SCH ×2 (09:00→21:18)
[2019-09-23] MEDS: LEVETIRACETAM SOL (5 ML) 100 MG/ML UDC GT SCH ×2 (09:00→21:18)
[2019-09-23] MEDS: OXCARBAZEPINE 150 MG TABLET GT SCH ×2 (09:00→21:18)
[2019-09-23] MEDS: DOCUSATE SODIUM LIQ 100 MG/10 ML UDC GT SCH (09:00)
[2019-09-23] MEDS: LINEZOLID 600 MG TABLET GT SCH ×2 (09:00→21:18)
[2019-09-23] MEDS: MEROPENEM 500 MG in IV NS 0.9% 50 ML IV SCH ×2 (09:00→21:00)
[2019-09-23] MEDS: Z GUARD REMEDY 4 OZ OINT TP SCH ×2 (09:00→21:18)
[2019-09-23] MEDS: HYDROGEN PEROXIDE 480 ML BOTTLE TP SCH ×2 (09:40→20:05)
[2019-09-23] MEDS: BLOOD SUGAR DIAGNOSTIC 1 EACH STRIP IN SCH ×2 (09:59→21:18)
[2019-09-23] MEDS: INSULIN REGULAR, HUMAN 100 UNIT/ML 3 ML VIAL SQ PRN ×2 (11:33→21:19)
--- NOTE | 2019-09-23 20:41 | NUR ---
RT NOTE PT RECEIVED TRACHED ON MECHANICAL VENTILATION. CUFF CHECKED VIA POPULATION HEALTH MANAGER. SX DONE, TRACH SECURED AND PATENT. ALARMS ON AND AUDIBLE. VENT PLUGGED TO RED OUTLET. NO DISTRESS NOTED AT THIS TIME. WILL MONITOR T/O SHIFT. CONT. PULSE OX CONNECTED. Addendum: 09/23/19 at 2041 by BRIEN NEAL RT Amended: Links added.
[2019-09-23 20:51] VITALS: BP 144/78
[2019-09-23] MEDS: ASCORBIC ACID 500 MG TABLET GT SCH (21:18)
[2019-09-23] MEDS: INSULIN GLARGINE, 100 UNIT/ML CARTRIDGE SQ SCH (21:20)
[2019-09-23] MEDS: GLUCERNA 1.2 1,000 ML BOTTLE NG PRN (22:46)
[2019-09-24] MEDS: METOCLOPRAMIDE HCL 10 MG/10 ML UDC GT SCH ×5 (00:07→23:41)
[2019-09-24] MEDS: OMEPRAZOLE 20 MG CAPSULE.DR GT SCH (05:51)
[2019-09-24] MEDS: GABAPENTIN 300 MG CAPSULE GT SCH ×3 (05:51→20:42)
[2019-09-24 07:36] VITALS: BP 140/77
[2019-09-24] MEDS: SIMETHICONE SUSP 40 MG/0.6 ML BOTTLE GT SCH ×2 (08:33→20:42)
[2019-09-24] MEDS: ACIDOPHILUS/BULGARICUS 1 EACH TAB.CHEW GT SCH ×2 (08:33→17:15)
[2019-09-24] MEDS: BLOOD SUGAR DIAGNOSTIC 1 EACH STRIP IN SCH ×2 (08:33→20:42)
[2019-09-24] MEDS: FERROUS SULFATE UDC 300 MG/5 ML UDC GT SCH ×2 (08:33→20:42)
[2019-09-24] MEDS: Z GUARD REMEDY 4 OZ OINT TP SCH ×2 (08:33→21:18)
[2019-09-24] MEDS: MULTIVIT W/MINERALS 1 TAB TABLET GT SCH (08:33)
[2019-09-24] MEDS: DOCUSATE SODIUM LIQ 100 MG/10 ML UDC GT SCH (08:33)
[2019-09-24] MEDS: SENNOSIDES 8.6 MG TABLET GT SCH ×2 (08:33→20:42)
[2019-09-24] MEDS: OXCARBAZEPINE 150 MG TABLET GT SCH ×2 (08:33→20:42)
[2019-09-24] MEDS: LEVETIRACETAM SOL (5 ML) 100 MG/ML UDC GT SCH ×2 (08:33→20:42)
[2019-09-24] MEDS: LINEZOLID 600 MG TABLET GT SCH ×2 (08:33→20:42)
[2019-09-24] MEDS: INSULIN REGULAR, HUMAN 100 UNIT/ML 3 ML VIAL SQ PRN ×2 (08:34→20:43)
[2019-09-24] MEDS: HYDROGEN PEROXIDE 480 ML BOTTLE TP SCH (09:00)
[2019-09-24] MEDS: MEROPENEM 500 MG in IV NS 0.9% 50 ML IV SCH ×2 (09:30→21:00)
[2019-09-24] MEDS: LORAZEPAM 0.5 MG TABLET GT PRN (11:25)
--- NOTE | 2019-09-24 11:25 | NUR ---
Patient noted to be having seizures. Facial and BUE twitching noted, blank stare also noted lasting for 2 mins. Ativan via GT given as ordered. Pt kept comfortable, no distress noted. Will monitor.
--- NOTE | 2019-09-24 12:30 | NUR ---
Pt asleep, arouses easily to tactile stimuli. No more seizure episodes noted. Pt comfortable in bed, no distress noted.
--- NOTE | 2019-09-24 18:00 | NUR ---
Spoke with resident's sister Beckie giving her an update on patient's condition. Informed Beckie that patient had seizure episode, medicated with Ativan and effective. Informed Beckie of most recent lab result CBC, CMP on 09/22/19, nephrostomy output tea color, no hematuria. Appreciated the call.
[2019-09-24 20:22] VITALS: BP 136/74
[2019-09-24] MEDS: ASCORBIC ACID 500 MG TABLET GT SCH (20:42)
[2019-09-24] MEDS: INSULIN GLARGINE, 100 UNIT/ML CARTRIDGE SQ SCH (22:44)
[2019-09-25] MEDS: GABAPENTIN 300 MG CAPSULE GT SCH ×3 (05:54→21:13)
[2019-09-25] MEDS: OMEPRAZOLE 20 MG CAPSULE.DR GT SCH (05:54)
[2019-09-25] MEDS: METOCLOPRAMIDE HCL 10 MG/10 ML UDC GT SCH ×4 (05:54→23:57)
[2019-09-25] MEDS: GLUCERNA 1.2 1,000 ML BOTTLE NG PRN (07:28)
[2019-09-25 07:33] VITALS: BP 135/75
[2019-09-25] MEDS: HYDROGEN PEROXIDE 480 ML BOTTLE TP SCH ×2 (09:00→21:13)
[2019-09-25] MEDS: MEROPENEM 500 MG in IV NS 0.9% 50 ML IV SCH (09:00)
[2019-09-25] MEDS: FERROUS SULFATE UDC 300 MG/5 ML UDC GT SCH ×2 (09:00→21:12)
[2019-09-25] MEDS: ACIDOPHILUS/BULGARICUS 1 EACH TAB.CHEW GT SCH ×2 (09:00→16:47)
[2019-09-25] MEDS: LINEZOLID 600 MG TABLET GT SCH ×2 (09:00→21:14)
[2019-09-25] MEDS: BLOOD SUGAR DIAGNOSTIC 1 EACH STRIP IN SCH ×2 (09:00→21:14)
[2019-09-25] MEDS: LEVETIRACETAM SOL (5 ML) 100 MG/ML UDC GT SCH ×2 (09:00→21:13)
[2019-09-25] MEDS: DOCUSATE SODIUM LIQ 100 MG/10 ML UDC GT SCH (09:00)
[2019-09-25] MEDS: OXCARBAZEPINE 150 MG TABLET GT SCH ×2 (09:00→21:14)
[2019-09-25] MEDS: SIMETHICONE SUSP 40 MG/0.6 ML BOTTLE GT SCH ×2 (09:00→21:13)
[2019-09-25] MEDS: SENNOSIDES 8.6 MG TABLET GT SCH ×2 (09:00→21:13)
[2019-09-25] MEDS: Z GUARD REMEDY 4 OZ OINT TP SCH ×2 (09:00→21:14)
[2019-09-25] MEDS: MULTIVIT W/MINERALS 1 TAB TABLET GT SCH (09:00)
[2019-09-25 19:47] VITALS: BP 123/72
[2019-09-25] MEDS: ASCORBIC ACID 500 MG TABLET GT SCH (21:14)
[2019-09-25] MEDS: INSULIN GLARGINE, 100 UNIT/ML CARTRIDGE SQ SCH (21:15)
[2019-09-26] MEDS: GABAPENTIN 300 MG CAPSULE GT SCH ×3 (05:59→21:29)
[2019-09-26] MEDS: METOCLOPRAMIDE HCL 10 MG/10 ML UDC GT SCH ×4 (05:59→23:42)
[2019-09-26] MEDS: OMEPRAZOLE 20 MG CAPSULE.DR GT SCH (05:59)
[2019-09-26 08:03] VITALS: BP 130/79
[2019-09-26] MEDS: LINEZOLID 600 MG TABLET GT SCH ×2 (09:00→21:29)
[2019-09-26] MEDS: HYDROGEN PEROXIDE 480 ML BOTTLE TP SCH ×2 (09:00→21:00)
[2019-09-26] MEDS: MULTIVIT W/MINERALS 1 TAB TABLET GT SCH (09:00)
[2019-09-26] MEDS: DOCUSATE SODIUM LIQ 100 MG/10 ML UDC GT SCH (09:00)
[2019-09-26] MEDS: Z GUARD REMEDY 4 OZ OINT TP SCH ×2 (09:00→21:29)
[2019-09-26] MEDS: LEVETIRACETAM SOL (5 ML) 100 MG/ML UDC GT SCH ×2 (09:00→21:28)
[2019-09-26] MEDS: FERROUS SULFATE UDC 300 MG/5 ML UDC GT SCH ×2 (09:00→21:28)
[2019-09-26] MEDS: ACIDOPHILUS/BULGARICUS 1 EACH TAB.CHEW GT SCH ×2 (09:00→16:57)
[2019-09-26] MEDS: OXCARBAZEPINE 150 MG TABLET GT SCH ×2 (09:00→21:29)
[2019-09-26] MEDS: SENNOSIDES 8.6 MG TABLET GT SCH ×2 (09:00→21:29)
[2019-09-26] MEDS: BLOOD SUGAR DIAGNOSTIC 1 EACH STRIP IN SCH ×2 (09:00→21:29)
[2019-09-26] MEDS: SIMETHICONE SUSP 40 MG/0.6 ML BOTTLE GT SCH ×2 (09:00→21:28)
[2019-09-26] MEDS: MEROPENEM 500 MG in IV NS 0.9% 50 ML IV SCH ×2 (09:00→21:00)
[2019-09-26] MEDS: EPOETIN ALFA (10,000 UNIT) 10,000 UNIT/ML VIAL SQ SCH (16:58)
[2019-09-26 20:28] VITALS: BP 140/68
[2019-09-26] MEDS: ASCORBIC ACID 500 MG TABLET GT SCH (21:29)
[2019-09-26] MEDS: INSULIN GLARGINE, 100 UNIT/ML CARTRIDGE SQ SCH (21:30)
[2019-09-26] MEDS ORDERED: MEROPENEM 500 MG VIAL IV ONE (22:24)
[2019-09-27] MEDS: GABAPENTIN 300 MG CAPSULE GT SCH ×3 (05:43→21:08)
[2019-09-27] MEDS: METOCLOPRAMIDE HCL 10 MG/10 ML UDC GT SCH ×4 (05:43→23:23)
[2019-09-27] MEDS: OMEPRAZOLE 20 MG CAPSULE.DR GT SCH (05:43)
[2019-09-27 07:43] VITALS: BP 142/80
[2019-09-27 08:19] LABS: CALCIUM, SERUM 10.8 mg/dL (8.5-10.1); CREATININE 3.3 mg/dL (0.6-1.3); MAGNESIUM 2.9 mg/dL (1.8-2.4); PHOSPHORUS 5.7 mg/dL (2.5-4.9); POTASSIUM 5.1 mmol/L (3.5-5.1)
[2019-09-27] MEDS: HYDROGEN PEROXIDE 480 ML BOTTLE TP SCH ×2 (08:26→21:00)
[2019-09-27 08:30] LABS: BASOPHILS # (AUTO) 0.1 /CMM (0.0-0.2); BASOPHILS % (AUTO) 0.4 % (0.0-2.0); EOSINOPHILS % (AUTO) 6.6 % (0.0-6.0); HEMATOCRIT 27 % (33-45); HEMOGLOBIN 8.9 g/dL (11.5-14.8); LYMPHOCYTES # (AUTO) 1.5 /CMM (0.8-4.8); LYMPHOCYTES % (AUTO) 10.1 % (20.0-44.0); MEAN CORPUSCULAR HGB CONC 33 g/dl (31.0-36.0); MEAN CORPUSCULAR VOLUME 97 fL (82-100); MONOCYTES # (AUTO) 1.3 /CMM (0.1-1.30); MONOCYTES % (AUTO) 8.8 % (2.0-12.0); NEUTROPHILS % (AUTO) 74.1 % (43.0-81.0); PLATELET COUNT (AUTO) 402 /CMM (150-450); RED BLOOD CELL COUNT(AUTO) 2.83 MIL/uL (4.0-5.2); WHITE BLOOD COUNT (AUTO) 14.8 K/uL (4.3-11.0)
[2019-09-27] MEDS: MEROPENEM 500 MG in IV NS 0.9% 50 ML IV SCH ×2 (09:00→21:00)
[2019-09-27] MEDS: SIMETHICONE SUSP 40 MG/0.6 ML BOTTLE GT SCH ×2 (09:24→21:08)
[2019-09-27] MEDS: Z GUARD REMEDY 4 OZ OINT TP SCH ×2 (09:24→21:08)
[2019-09-27] MEDS: MULTIVIT W/MINERALS 1 TAB TABLET GT SCH (09:24)
[2019-09-27] MEDS: SENNOSIDES 8.6 MG TABLET GT SCH ×2 (09:24→21:08)
[2019-09-27] MEDS: DOCUSATE SODIUM LIQ 100 MG/10 ML UDC GT SCH (09:24)
[2019-09-27] MEDS: LEVETIRACETAM SOL (5 ML) 100 MG/ML UDC GT SCH ×2 (09:24→21:08)
[2019-09-27] MEDS: FERROUS SULFATE UDC 300 MG/5 ML UDC GT SCH ×2 (09:24→21:08)
[2019-09-27] MEDS: ACIDOPHILUS/BULGARICUS 1 EACH TAB.CHEW GT SCH ×2 (09:24→17:12)
[2019-09-27] MEDS: LINEZOLID 600 MG TABLET GT SCH ×2 (09:24→21:08)
[2019-09-27] MEDS: OXCARBAZEPINE 150 MG TABLET GT SCH ×2 (09:24→21:08)
[2019-09-27] MEDS: BLOOD SUGAR DIAGNOSTIC 1 EACH STRIP IN SCH ×2 (09:32→21:08)
[2019-09-27] MEDS: INSULIN REGULAR, HUMAN 100 UNIT/ML 3 ML VIAL SQ PRN (09:44)
--- NOTE | 2019-09-27 11:56 | NUR ---
Family/ Patient Video Chat: This SW called the patient's sister/Conservator, Beckie Chu [phone] to inform her that we can facilitate video chat with their patient via Zoom application. Per Beckie, she will download the application and call this SW back when she is available to do video chat with her patient. Noted. Beckie expressed she felt "excited and thankful". SW will continue effort to promote patient and family communication.
[2019-09-27 21:00] VITALS: BP 127/74
[2019-09-27] MEDS: ASCORBIC ACID 500 MG TABLET GT SCH (21:08)
[2019-09-27] MEDS: INSULIN GLARGINE, 100 UNIT/ML CARTRIDGE SQ SCH (21:09)
[2019-09-28] MEDS: GABAPENTIN 300 MG CAPSULE GT SCH ×3 (05:00→21:37)
[2019-09-28] MEDS: OMEPRAZOLE 20 MG CAPSULE.DR GT SCH (06:16)
[2019-09-28] MEDS: METOCLOPRAMIDE HCL 10 MG/10 ML UDC GT SCH ×4 (06:16→23:50)
[2019-09-28 07:52] VITALS: BP 146/78
[2019-09-28] MEDS: HYDROGEN PEROXIDE 480 ML BOTTLE TP SCH ×2 (08:56→21:00)
[2019-09-28] MEDS: SIMETHICONE SUSP 40 MG/0.6 ML BOTTLE GT SCH ×2 (09:00→21:37)
[2019-09-28] MEDS: FERROUS SULFATE UDC 300 MG/5 ML UDC GT SCH ×2 (09:00→21:37)
[2019-09-28] MEDS: BLOOD SUGAR DIAGNOSTIC 1 EACH STRIP IN SCH ×2 (09:00→21:42)
[2019-09-28] MEDS: LEVETIRACETAM SOL (5 ML) 100 MG/ML UDC GT SCH ×2 (09:00→21:37)
[2019-09-28] MEDS: DOCUSATE SODIUM LIQ 100 MG/10 ML UDC GT SCH (09:00)
[2019-09-28] MEDS: Z GUARD REMEDY 4 OZ OINT TP SCH ×2 (09:00→21:38)
[2019-09-28] MEDS: OXCARBAZEPINE 150 MG TABLET GT SCH ×2 (09:00→21:37)
[2019-09-28] MEDS: SENNOSIDES 8.6 MG TABLET GT SCH ×2 (09:00→21:37)
[2019-09-28] MEDS: ACIDOPHILUS/BULGARICUS 1 EACH TAB.CHEW GT SCH ×2 (09:00→16:16)
[2019-09-28] MEDS: MULTIVIT W/MINERALS 1 TAB TABLET GT SCH (09:00)
[2019-09-28] MEDS: INSULIN REGULAR, HUMAN 100 UNIT/ML 3 ML VIAL SQ PRN ×2 (10:04→21:44)
[2019-09-28 19:46] VITALS: BP 129/74
[2019-09-28] MEDS: ASCORBIC ACID 500 MG TABLET GT SCH (21:38)
[2019-09-28] MEDS: GLUCERNA 1.2 1,000 ML BOTTLE NG PRN (21:43)
[2019-09-28] MEDS: INSULIN GLARGINE, 100 UNIT/ML CARTRIDGE SQ SCH (21:43)
[2019-09-29] MEDS: OMEPRAZOLE 20 MG CAPSULE.DR GT SCH (05:27)
[2019-09-29] MEDS: METOCLOPRAMIDE HCL 10 MG/10 ML UDC GT SCH ×4 (05:27→23:43)
[2019-09-29] MEDS: GABAPENTIN 300 MG CAPSULE GT SCH ×3 (05:27→20:58)
[2019-09-29 07:26] VITALS: BP 135/76
[2019-09-29] MEDS: DOCUSATE SODIUM LIQ 100 MG/10 ML UDC GT SCH (08:57)
[2019-09-29] MEDS: SENNOSIDES 8.6 MG TABLET GT SCH ×2 (08:57→20:58)
[2019-09-29] MEDS: SIMETHICONE SUSP 40 MG/0.6 ML BOTTLE GT SCH ×2 (08:57→20:57)
[2019-09-29] MEDS: FERROUS SULFATE UDC 300 MG/5 ML UDC GT SCH ×2 (08:57→20:57)
[2019-09-29] MEDS: ACIDOPHILUS/BULGARICUS 1 EACH TAB.CHEW GT SCH ×2 (08:57→17:00)
[2019-09-29] MEDS: LEVETIRACETAM SOL (5 ML) 100 MG/ML UDC GT SCH ×2 (08:57→20:57)
[2019-09-29] MEDS: OXCARBAZEPINE 150 MG TABLET GT SCH ×2 (08:58→20:59)
[2019-09-29] MEDS: MULTIVIT W/MINERALS 1 TAB TABLET GT SCH (08:58)
[2019-09-29] MEDS: HYDROGEN PEROXIDE 480 ML BOTTLE TP SCH ×2 (09:00→21:09)
[2019-09-29] MEDS: BLOOD SUGAR DIAGNOSTIC 1 EACH STRIP IN SCH ×2 (09:26→21:44)
[2019-09-29] MEDS: Z GUARD REMEDY 4 OZ OINT TP SCH ×2 (09:26→20:59)
[2019-09-29] MEDS: INSULIN REGULAR, HUMAN 100 UNIT/ML 3 ML VIAL SQ PRN ×2 (09:31→21:53)
--- NOTE | 2019-09-29 18:31 | NUR ---
Seen by [employer] Anna Vargas. Received order to apply SCD to bilateral lower extremities for DVT prophylaxis. Notified Beckie.
[2019-09-29] MEDS: GLUCERNA 1.2 1,000 ML BOTTLE NG PRN (18:56)
[2019-09-29 20:00] VITALS: BP 138/57
--- NOTE | 2019-09-29 20:15 | NUR ---
RT NOTE PT RECEIVED TRACHED ON MECHANICAL VENTILATION. AMBU BAG/BACK UP TRACH @ BEDSIDE. SX DONE, TRACH SECURED AND PATENT. ALARMS ON AND AUDIBLE. NO DISTRESS NOTED. CONT. PULSE OX CONNECTED. WILL MONITOR T/O SHIFT. Addendum: 09/29/19 at 2015 by ALIA TEIXEIRA RT Amended: Links added.
[2019-09-29] MEDS: ASCORBIC ACID 500 MG TABLET GT SCH (20:59)
[2019-09-29] MEDS: INSULIN GLARGINE, 100 UNIT/ML CARTRIDGE SQ SCH (21:45)
[2019-09-30] MEDS: GABAPENTIN 300 MG CAPSULE GT SCH ×3 (05:27→21:32)
[2019-09-30] MEDS: METOCLOPRAMIDE HCL 10 MG/10 ML UDC GT SCH ×4 (05:27→23:18)
[2019-09-30] MEDS: OMEPRAZOLE 20 MG CAPSULE.DR GT SCH (05:27)
[2019-09-30 07:17] VITALS: BP 130/68
[2019-09-30] MEDS: HYDROGEN PEROXIDE 480 ML BOTTLE TP SCH ×2 (08:57→20:08)
[2019-09-30] MEDS: DOCUSATE SODIUM LIQ 100 MG/10 ML UDC GT SCH (09:00)
[2019-09-30] MEDS: LEVETIRACETAM SOL (5 ML) 100 MG/ML UDC GT SCH ×2 (09:00→21:32)
[2019-09-30] MEDS: MULTIVIT W/MINERALS 1 TAB TABLET GT SCH (09:00)
[2019-09-30] MEDS: Z GUARD REMEDY 4 OZ OINT TP SCH ×2 (09:00→21:32)
[2019-09-30] MEDS: ACIDOPHILUS/BULGARICUS 1 EACH TAB.CHEW GT SCH ×2 (09:00→17:15)
[2019-09-30] MEDS: BLOOD SUGAR DIAGNOSTIC 1 EACH STRIP IN SCH ×2 (09:00→21:32)
[2019-09-30] MEDS: FERROUS SULFATE UDC 300 MG/5 ML UDC GT SCH ×2 (09:00→21:32)
[2019-09-30] MEDS: OXCARBAZEPINE 150 MG TABLET GT SCH ×2 (09:00→21:32)
[2019-09-30] MEDS: SENNOSIDES 8.6 MG TABLET GT SCH ×2 (09:00→21:32)
[2019-09-30] MEDS: SIMETHICONE SUSP 40 MG/0.6 ML BOTTLE GT SCH ×2 (09:00→21:32)
[2019-09-30] MEDS: INSULIN REGULAR, HUMAN 100 UNIT/ML 3 ML VIAL SQ PRN (10:50)
[2019-09-30] MEDS: GLUCERNA 1.2 1,000 ML BOTTLE NG PRN (15:22)
--- NOTE | 2019-09-30 16:20 | NUR ---
INTERDISCIPLINARY PLAN OF CARE CONFERENCE was held today. The patients conservator, Beckie Chu was updated with the plan of care. Charge nurse discussed pt. re-admission and continue all previous orders from acute; nephrostomy tube placement and urine output WNL; hemoglobin levels. Dr. Felix and Interdisciplinary team discussed the plan of care in detail. Current orders as well as treatments and medications were reviewed. See other disciplines IDT notes for further details.
[2019-09-30 19:45] VITALS: BP 132/66
[2019-09-30] MEDS: ASCORBIC ACID 500 MG TABLET GT SCH (21:32)
[2019-09-30] MEDS: INSULIN GLARGINE, 100 UNIT/ML CARTRIDGE SQ SCH (21:33)
--- NOTE | 2019-09-30 23:07 | NUR ---
RT NOTE PT RECEIVED TRACHED ON MECHANICAL VENTILATION. CUFF CHECKED VIA PAPER FOLDER. AMBU BAG/BACK UP TRACH @ BEDSIDE. SX DONE, TRACH SECURED AND PATENT. ALARMS ON AND AUDIBLE. NO DISTRESS NOTED. CONT. PULSE OX CONNECTED. WILL MONITOR T/O SHIFT. Addendum: 09/30/19 at 2308 by BRIEN NEAL RT Amended: Links added.
[2019-10-01] MEDS: GABAPENTIN 300 MG CAPSULE GT SCH ×3 (05:19→20:29)
[2019-10-01] MEDS: OMEPRAZOLE 20 MG CAPSULE.DR GT SCH (05:19)
[2019-10-01] MEDS: METOCLOPRAMIDE HCL 10 MG/10 ML UDC GT SCH ×4 (05:20→23:08)
[2019-10-01 08:04] VITALS: BP 129/62
[2019-10-01] MEDS: SIMETHICONE SUSP 40 MG/0.6 ML BOTTLE GT SCH ×2 (08:55→20:29)
[2019-10-01] MEDS: FERROUS SULFATE UDC 300 MG/5 ML UDC GT SCH ×2 (08:55→20:29)
[2019-10-01] MEDS: SENNOSIDES 8.6 MG TABLET GT SCH ×2 (08:55→20:29)
[2019-10-01] MEDS: ACIDOPHILUS/BULGARICUS 1 EACH TAB.CHEW GT SCH ×2 (08:55→17:43)
[2019-10-01] MEDS: DOCUSATE SODIUM LIQ 100 MG/10 ML UDC GT SCH (08:55)
[2019-10-01] MEDS: MULTIVIT W/MINERALS 1 TAB TABLET GT SCH (08:55)
[2019-10-01] MEDS: Z GUARD REMEDY 4 OZ OINT TP SCH ×2 (08:55→20:29)
[2019-10-01] MEDS: OXCARBAZEPINE 150 MG TABLET GT SCH ×2 (08:55→20:29)
[2019-10-01] MEDS: BLOOD SUGAR DIAGNOSTIC 1 EACH STRIP IN SCH ×2 (08:55→21:05)
[2019-10-01] MEDS: LEVETIRACETAM SOL (5 ML) 100 MG/ML UDC GT SCH ×2 (08:55→20:29)
[2019-10-01] MEDS: HYDROGEN PEROXIDE 480 ML BOTTLE TP SCH ×2 (09:00→21:00)
[2019-10-01] MEDS: INSULIN REGULAR, HUMAN 100 UNIT/ML 3 ML VIAL SQ PRN (09:31)
[2019-10-01] MEDS: GLUCERNA 1.2 1,000 ML BOTTLE NG PRN (14:27)
[2019-10-01 17:29] LABS: BASOPHILS # (AUTO) 0.1 /CMM (0.0-0.2); BASOPHILS % (AUTO) 0.5 % (0.0-2.0); EOSINOPHILS % (AUTO) 5.3 % (0.0-6.0); HEMATOCRIT 27 % (33-45); HEMOGLOBIN 8.6 g/dL (11.5-14.8); LYMPHOCYTES # (AUTO) 2.2 /CMM (0.8-4.8); LYMPHOCYTES % (AUTO) 14.8 % (20.0-44.0); MEAN CORPUSCULAR HGB CONC 32 g/dl (31.0-36.0); MEAN CORPUSCULAR VOLUME 95 fL (82-100); MONOCYTES # (AUTO) 1.5 /CMM (0.1-1.30); NEUTROPHILS # (AUTO) 10.3 /CMM (1.8-8.9); NEUTROPHILS % (AUTO) 69.4 % (43.0-81.0); PLATELET COUNT (AUTO) 467 /CMM (150-450); RED BLOOD CELL COUNT(AUTO) 2.81 MIL/uL (4.0-5.2); WHITE BLOOD COUNT (AUTO) 14.9 K/uL (4.3-11.0)
[2019-10-01 17:43] LABS: CALCIUM, SERUM 9.2 mg/dL (8.5-10.1); CREATININE 3.2 mg/dL (0.6-1.3); MAGNESIUM 2.5 mg/dL (1.8-2.4); PHOSPHORUS 5.2 mg/dL (2.5-4.9); POTASSIUM 4.3 mmol/L (3.5-5.1)
--- NOTE | 2019-10-01 19:00 | NUR ---
Relayed CBC and BMP result to Dr. Kumar, no new order given.
--- NOTE | 2019-10-01 19:45 | NUR ---
Updated resident's sister Beckie of patient's general condition, informed her of labs results, CBC and BMP including BUN, Creatinine, WBC and Hbg result in the last since her readmission. She expressed that she would like to see her but did not want to install the blue "Zoom" in her device. At this time resident stable in no s/s of distress. No episode of seizure, awake intermittently with TV on for audio and visual stimulation. Nephrostomy tube draining yellow tea color urine, no hematuria, while F/C draining adequate yellow urine. Needs anticipated by staff.
[2019-10-01 20:09] VITALS: BP 131/69
--- NOTE | 2019-10-01 20:16 | NUR ---
RT pt received on current vent settings. spare trach at bedside. ambu bag at hob. hob at 30 degrees. alarms on and audible. bilateral chest rise. minimal secretions. no respiratory distress. no sob. no changes at this time. will continue to monitor. Addendum: 10/02/19 at 0559 by BELKIS BETHEA RT Amended: Links added.
[2019-10-01] MEDS: ASCORBIC ACID 500 MG TABLET GT SCH (20:29)
[2019-10-01] MEDS: INSULIN GLARGINE, 100 UNIT/ML CARTRIDGE SQ SCH (21:06)
[2019-10-02] MEDS: OMEPRAZOLE 20 MG CAPSULE.DR GT SCH (05:02)
[2019-10-02] MEDS: METOCLOPRAMIDE HCL 10 MG/10 ML UDC GT SCH ×4 (05:02→23:31)
[2019-10-02] MEDS: GABAPENTIN 300 MG CAPSULE GT SCH ×3 (05:02→21:10)
[2019-10-02 07:39] VITALS: BP 100/71
[2019-10-02] MEDS: SIMETHICONE SUSP 40 MG/0.6 ML BOTTLE GT SCH ×2 (09:00→21:10)
[2019-10-02] MEDS: SENNOSIDES 8.6 MG TABLET GT SCH ×2 (09:00→21:10)
[2019-10-02] MEDS: DOCUSATE SODIUM LIQ 100 MG/10 ML UDC GT SCH (09:00)
[2019-10-02] MEDS: OXCARBAZEPINE 150 MG TABLET GT SCH ×2 (09:00→21:10)
[2019-10-02] MEDS: ACIDOPHILUS/BULGARICUS 1 EACH TAB.CHEW GT SCH ×2 (09:00→17:29)
[2019-10-02] MEDS: MULTIVIT W/MINERALS 1 TAB TABLET GT SCH (09:00)
[2019-10-02] MEDS: LEVETIRACETAM SOL (5 ML) 100 MG/ML UDC GT SCH ×2 (09:00→21:10)
[2019-10-02] MEDS: HYDROGEN PEROXIDE 480 ML BOTTLE TP SCH ×2 (09:00→21:00)
[2019-10-02] MEDS: BLOOD SUGAR DIAGNOSTIC 1 EACH STRIP IN SCH ×2 (09:00→21:10)
[2019-10-02] MEDS: FERROUS SULFATE UDC 300 MG/5 ML UDC GT SCH ×2 (09:00→21:10)
[2019-10-02] MEDS: Z GUARD REMEDY 4 OZ OINT TP SCH ×2 (09:00→21:10)
[2019-10-02] MEDS: GLUCERNA 1.2 1,000 ML BOTTLE NG PRN (13:14)
[2019-10-02 19:48] VITALS: BP 140/69
[2019-10-02] MEDS: ASCORBIC ACID 500 MG TABLET GT SCH (21:10)
[2019-10-02] MEDS: INSULIN REGULAR, HUMAN 100 UNIT/ML 3 ML VIAL SQ PRN (21:13)
[2019-10-02] MEDS: INSULIN GLARGINE, 100 UNIT/ML CARTRIDGE SQ SCH (21:14)
[2019-10-03] MEDS: GABAPENTIN 300 MG CAPSULE GT SCH ×3 (05:09→20:21)
[2019-10-03] MEDS: OMEPRAZOLE 20 MG CAPSULE.DR GT SCH (05:09)
[2019-10-03] MEDS: METOCLOPRAMIDE HCL 10 MG/10 ML UDC GT SCH ×4 (05:09→23:22)
[2019-10-03 07:51] VITALS: BP 119/75
[2019-10-03] MEDS: HYDROGEN PEROXIDE 480 ML BOTTLE TP SCH ×2 (09:00→21:00)
[2019-10-03] MEDS: MULTIVIT W/MINERALS 1 TAB TABLET GT SCH (09:01)
[2019-10-03] MEDS: SENNOSIDES 8.6 MG TABLET GT SCH ×2 (09:01→20:22)
[2019-10-03] MEDS: SIMETHICONE SUSP 40 MG/0.6 ML BOTTLE GT SCH ×2 (09:01→20:21)
[2019-10-03] MEDS: OXCARBAZEPINE 150 MG TABLET GT SCH ×2 (09:01→20:22)
[2019-10-03] MEDS: ACIDOPHILUS/BULGARICUS 1 EACH TAB.CHEW GT SCH ×2 (09:01→17:00)
[2019-10-03] MEDS: FERROUS SULFATE UDC 300 MG/5 ML UDC GT SCH ×2 (09:01→20:21)
[2019-10-03] MEDS: DOCUSATE SODIUM LIQ 100 MG/10 ML UDC GT SCH (09:01)
[2019-10-03] MEDS: Z GUARD REMEDY 4 OZ OINT TP SCH ×2 (09:06→21:48)
[2019-10-03] MEDS: LEVETIRACETAM SOL (5 ML) 100 MG/ML UDC GT SCH ×2 (09:06→20:21)
[2019-10-03] MEDS: GLUCERNA 1.2 1,000 ML BOTTLE NG PRN (09:14)
[2019-10-03] MEDS: INSULIN REGULAR, HUMAN 100 UNIT/ML 3 ML VIAL SQ PRN ×2 (09:28→21:49)
[2019-10-03] MEDS: BLOOD SUGAR DIAGNOSTIC 1 EACH STRIP IN SCH ×2 (09:28→21:47)
--- NOTE | 2019-10-03 16:06 | NUR ---
This SW called the patient's sister, Beckie [phone] and informed her that she does not need to download the application to use Zoom. STEPHEN emailed her a link invitation to her email at [email or web address]. Beckie expressed understanding and thanked STEPHEN for explanation. Beckie asked STEPHEN to facilitate Zoom video call 10/04/2019 11 am . STEPHEN will follow up.
[2019-10-03] MEDS: EPOETIN ALFA (10,000 UNIT) 10,000 UNIT/ML VIAL SQ SCH (17:00)
[2019-10-03] MEDS: ONDANSETRON 4 MG TAB.RAPDIS GT PRN (19:03)
[2019-10-03 19:45] VITALS: BP 140/69
[2019-10-03] MEDS: ASCORBIC ACID 500 MG TABLET GT SCH (20:22)
[2019-10-03] MEDS: INSULIN GLARGINE, 100 UNIT/ML CARTRIDGE SQ SCH (21:48)
[2019-10-04] MEDS: GABAPENTIN 300 MG CAPSULE GT SCH ×3 (05:01→21:22)
[2019-10-04] MEDS: METOCLOPRAMIDE HCL 10 MG/10 ML UDC GT SCH ×4 (05:01→23:17)
[2019-10-04] MEDS: GLUCERNA 1.2 1,000 ML BOTTLE NG PRN ×2 (05:01→22:59)
[2019-10-04] MEDS: OMEPRAZOLE 20 MG CAPSULE.DR GT SCH (05:01)
[2019-10-04 07:32] VITALS: BP 109/62
[2019-10-04] MEDS: ACIDOPHILUS/BULGARICUS 1 EACH TAB.CHEW GT SCH ×2 (08:47→16:53)
[2019-10-04] MEDS: MULTIVIT W/MINERALS 1 TAB TABLET GT SCH (08:47)
[2019-10-04] MEDS: SIMETHICONE SUSP 40 MG/0.6 ML BOTTLE GT SCH ×2 (08:47→21:22)
[2019-10-04] MEDS: LEVETIRACETAM SOL (5 ML) 100 MG/ML UDC GT SCH ×2 (08:47→21:22)
[2019-10-04] MEDS: OXCARBAZEPINE 150 MG TABLET GT SCH ×2 (08:47→21:22)
[2019-10-04] MEDS: DOCUSATE SODIUM LIQ 100 MG/10 ML UDC GT SCH (08:47)
[2019-10-04] MEDS: SENNOSIDES 8.6 MG TABLET GT SCH ×2 (08:47→21:22)
[2019-10-04] MEDS: FERROUS SULFATE UDC 300 MG/5 ML UDC GT SCH ×2 (08:47→21:22)
[2019-10-04] MEDS: HYDROGEN PEROXIDE 480 ML BOTTLE TP SCH ×2 (09:00→21:00)
[2019-10-04] MEDS: INSULIN REGULAR, HUMAN 100 UNIT/ML 3 ML VIAL SQ PRN ×2 (09:07→21:23)
[2019-10-04] MEDS: BLOOD SUGAR DIAGNOSTIC 1 EACH STRIP IN SCH ×2 (09:07→21:23)
[2019-10-04] MEDS: Z GUARD REMEDY 4 OZ OINT TP SCH ×2 (09:07→21:23)
--- NOTE | 2019-10-04 14:18 | NUR ---
Patient/ Family Video Chat: This SW facilitated Video chat with the patients sister, Beckie Chu [phone]. Beckie thanked SW. SW will continue to facilitate video chat as needed.
[2019-10-04 20:14] VITALS: BP 126/62
--- NOTE | 2019-10-04 20:33 | NUR ---
RT NOTE PT RECEIVED TRACHED ON MECHANICAL VENTILATION. CUFF CHECKED VIA CIGARETTE PACKER. AMBU BAG/BACK UP TRACH @ BEDSIDE. SX DONE, TRACH SECURED AND PATENT. ALARMS ON AND AUDIBLE. NO DISTRESS NOTED. CONT. PULSE OX CONNECTED. WILL MONITOR T/O SHIFT. Addendum: 10/04/19 at 2032 by BRIEN NEAL RT Amended: Links added.
[2019-10-04] MEDS: INSULIN GLARGINE, 100 UNIT/ML CARTRIDGE SQ SCH (21:23)
[2019-10-04] MEDS: ASCORBIC ACID 500 MG TABLET GT SCH (21:23)
--- NOTE | 2019-10-04 23:00 | NUR ---
RN NOTES Noted nephrostomy site with abscess-like sac, with light yellowish discharge, hard to touch surrounding site, non-tender. Dressing changed at this time. Will continue to monitor.
[2019-10-05] MEDS: GABAPENTIN 300 MG CAPSULE GT SCH ×3 (04:57→20:12)
[2019-10-05] MEDS: METOCLOPRAMIDE HCL 10 MG/10 ML UDC GT SCH ×4 (05:07→23:54)
[2019-10-05] MEDS: OMEPRAZOLE 20 MG CAPSULE.DR GT SCH (05:07)
[2019-10-05 08:00] VITALS: BP 118/59
[2019-10-05] MEDS: Z GUARD REMEDY 4 OZ OINT TP SCH ×2 (09:00→20:12)
[2019-10-05] MEDS: HYDROGEN PEROXIDE 480 ML BOTTLE TP SCH ×2 (09:36→21:37)
[2019-10-05] MEDS: DOCUSATE SODIUM LIQ 100 MG/10 ML UDC GT SCH (09:58)
[2019-10-05] MEDS: MULTIVIT W/MINERALS 1 TAB TABLET GT SCH (09:58)
[2019-10-05] MEDS: FERROUS SULFATE UDC 300 MG/5 ML UDC GT SCH ×2 (09:58→20:12)
[2019-10-05] MEDS: ACIDOPHILUS/BULGARICUS 1 EACH TAB.CHEW GT SCH ×2 (09:58→17:29)
[2019-10-05] MEDS: OXCARBAZEPINE 150 MG TABLET GT SCH ×2 (09:58→20:12)
[2019-10-05] MEDS: LEVETIRACETAM SOL (5 ML) 100 MG/ML UDC GT SCH ×2 (09:58→20:12)
[2019-10-05] MEDS: SENNOSIDES 8.6 MG TABLET GT SCH ×2 (09:58→20:12)
[2019-10-05] MEDS: SIMETHICONE SUSP 40 MG/0.6 ML BOTTLE GT SCH ×2 (09:58→20:12)
[2019-10-05] MEDS: BLOOD SUGAR DIAGNOSTIC 1 EACH STRIP IN SCH ×2 (09:59→21:21)
--- NOTE | 2019-10-05 11:00 | NUR ---
Dr. Kumar reviewed recent labs with new order for CBC, CMP, Mg. and Phos in AM.
--- NOTE | 2019-10-05 16:05 | NUR ---
Notified Dr. Luis that patient's nephrostomy tube exit site noted whitish tissue, surrounding tissue around the nephrostomy tube firm to touch. Awaiting for any orders. Endorsed.
[2019-10-05] MEDS: GLUCERNA 1.2 1,000 ML BOTTLE NG PRN ×2 (17:30→23:54)
[2019-10-05 19:58] VITALS: BP 122/72
[2019-10-05] MEDS: ASCORBIC ACID 500 MG TABLET GT SCH (20:12)
[2019-10-05] MEDS: INSULIN GLARGINE, 100 UNIT/ML CARTRIDGE SQ SCH (21:22)
[2019-10-06] MEDS: METOCLOPRAMIDE HCL 10 MG/10 ML UDC GT SCH ×4 (05:18→23:13)
[2019-10-06] MEDS: OMEPRAZOLE 20 MG CAPSULE.DR GT SCH (05:18)
[2019-10-06] MEDS: GABAPENTIN 300 MG CAPSULE GT SCH ×3 (05:18→21:19)
[2019-10-06 07:26] VITALS: BP 100/55
[2019-10-06 07:26] LABS: BASOPHILS # (AUTO) 0.1 /CMM (0.0-0.2); BASOPHILS % (AUTO) 0.5 % (0.0-2.0); EOSINOPHILS % (AUTO) 5.4 % (0.0-6.0); HEMATOCRIT 24 % (33-45); HEMOGLOBIN 7.8 g/dL (11.5-14.8); LYMPHOCYTES # (AUTO) 1.4 /CMM (0.8-4.8); LYMPHOCYTES % (AUTO) 12.6 % (20.0-44.0); MEAN CORPUSCULAR HGB CONC 33 g/dl (31.0-36.0); MEAN CORPUSCULAR VOLUME 94 fL (82-100); MONOCYTES # (AUTO) 1.3 /CMM (0.1-1.30); MONOCYTES % (AUTO) 11.3 % (2.0-12.0); NEUTROPHILS % (AUTO) 70.2 % (43.0-81.0); PLATELET COUNT (AUTO) 455 /CMM (150-450); RED BLOOD CELL COUNT(AUTO) 2.55 MIL/uL (4.0-5.2); WHITE BLOOD COUNT (AUTO) 11.4 K/uL (4.3-11.0)
[2019-10-06 07:56] LABS: ALBUMIN 1.8 g/dL (3.4-5.0); BILIRUBIN,TOTAL 0.2 mg/dL (0.2-1.0); CALCIUM, SERUM 9.2 mg/dL (8.5-10.1); MAGNESIUM 2.5 mg/dL (1.8-2.4); PHOSPHORUS 5.7 mg/dL (2.5-4.9); POTASSIUM 4.2 mmol/L (3.5-5.1); TOTAL PROTEIN, SERUM 9.1 g/dL (6.4-8.2)
[2019-10-06] MEDS: MULTIVIT W/MINERALS 1 TAB TABLET GT SCH (09:00)
[2019-10-06] MEDS: FERROUS SULFATE UDC 300 MG/5 ML UDC GT SCH ×2 (09:00→21:19)
[2019-10-06] MEDS: Z GUARD REMEDY 4 OZ OINT TP SCH ×2 (09:00→21:20)
[2019-10-06] MEDS: SENNOSIDES 8.6 MG TABLET GT SCH ×2 (09:00→21:19)
[2019-10-06] MEDS: SIMETHICONE SUSP 40 MG/0.6 ML BOTTLE GT SCH ×2 (09:00→21:19)
[2019-10-06] MEDS: DOCUSATE SODIUM LIQ 100 MG/10 ML UDC GT SCH (09:00)
[2019-10-06] MEDS: LEVETIRACETAM SOL (5 ML) 100 MG/ML UDC GT SCH ×2 (09:00→21:19)
[2019-10-06] MEDS: ACIDOPHILUS/BULGARICUS 1 EACH TAB.CHEW GT SCH ×2 (09:00→17:12)
[2019-10-06] MEDS: BLOOD SUGAR DIAGNOSTIC 1 EACH STRIP IN SCH ×2 (09:00→21:19)
[2019-10-06] MEDS: OXCARBAZEPINE 150 MG TABLET GT SCH ×2 (09:00→21:19)
[2019-10-06] MEDS: HYDROGEN PEROXIDE 480 ML BOTTLE TP SCH ×2 (09:12→21:10)
[2019-10-06] MEDS: INSULIN REGULAR, HUMAN 100 UNIT/ML 3 ML VIAL SQ PRN ×2 (13:04→21:19)
--- NOTE | 2019-10-06 14:33 | NUR ---
[facility] [employer]: STEPHEN emailed the pt.s Conservator, Beckie Chu the [facility] Consent Form and the [facility] Family Information sheet to [email or web address]. STEPHEN will follow up and call Beckie to get Verbal consent if he is agreeable to plan.
[2019-10-06] MEDS: GLUCERNA 1.2 1,000 ML BOTTLE NG PRN (17:12)
[2019-10-06 19:54] VITALS: BP 133/75
[2019-10-06] MEDS: ASCORBIC ACID 500 MG TABLET GT SCH (21:19)
[2019-10-06] MEDS: INSULIN GLARGINE, 100 UNIT/ML CARTRIDGE SQ SCH (21:20)
[2019-10-07] MEDS: OMEPRAZOLE 20 MG CAPSULE.DR GT SCH (05:01)
[2019-10-07] MEDS: METOCLOPRAMIDE HCL 10 MG/10 ML UDC GT SCH ×4 (05:01→23:11)
[2019-10-07] MEDS: GABAPENTIN 300 MG CAPSULE GT SCH ×3 (05:01→21:11)
[2019-10-07 07:40] VITALS: BP 136/78
[2019-10-07] MEDS: LEVETIRACETAM SOL (5 ML) 100 MG/ML UDC GT SCH ×2 (09:00→21:11)
[2019-10-07] MEDS: DOCUSATE SODIUM LIQ 100 MG/10 ML UDC GT SCH (09:00)
[2019-10-07] MEDS: Z GUARD REMEDY 4 OZ OINT TP SCH ×2 (09:00→21:11)
[2019-10-07] MEDS: SENNOSIDES 8.6 MG TABLET GT SCH ×2 (09:00→21:11)
[2019-10-07] MEDS: FERROUS SULFATE UDC 300 MG/5 ML UDC GT SCH ×2 (09:00→21:11)
[2019-10-07] MEDS: HYDROGEN PEROXIDE 480 ML BOTTLE TP SCH ×2 (09:00→21:28)
[2019-10-07] MEDS: SIMETHICONE SUSP 40 MG/0.6 ML BOTTLE GT SCH ×2 (09:00→21:11)
[2019-10-07] MEDS: OXCARBAZEPINE 150 MG TABLET GT SCH ×2 (09:00→21:11)
[2019-10-07] MEDS: ACIDOPHILUS/BULGARICUS 1 EACH TAB.CHEW GT SCH ×2 (09:00→17:26)
[2019-10-07] MEDS: MULTIVIT W/MINERALS 1 TAB TABLET GT SCH (09:00)
[2019-10-07] MEDS: BLOOD SUGAR DIAGNOSTIC 1 EACH STRIP IN SCH ×2 (09:00→21:35)
[2019-10-07] MEDS: GLUCERNA 1.2 1,000 ML BOTTLE NG PRN (17:27)
[2019-10-07 19:44] VITALS: BP 123/66
[2019-10-07] MEDS: ASCORBIC ACID 500 MG TABLET GT SCH (21:11)
[2019-10-07] MEDS: INSULIN REGULAR, HUMAN 100 UNIT/ML 3 ML VIAL SQ PRN (21:36)
[2019-10-07] MEDS: INSULIN GLARGINE, 100 UNIT/ML CARTRIDGE SQ SCH (21:36)
[2019-10-08] MEDS: METOCLOPRAMIDE HCL 10 MG/10 ML UDC GT SCH ×3 (05:25→17:00)
[2019-10-08] MEDS: OMEPRAZOLE 20 MG CAPSULE.DR GT SCH (05:25)
[2019-10-08] MEDS: GABAPENTIN 300 MG CAPSULE GT SCH ×3 (05:25→21:01)
[2019-10-08 07:38] VITALS: BP 119/56
[2019-10-08] MEDS: DOCUSATE SODIUM LIQ 100 MG/10 ML UDC GT SCH (08:29)
[2019-10-08] MEDS: LEVETIRACETAM SOL (5 ML) 100 MG/ML UDC GT SCH ×2 (08:29→21:00)
[2019-10-08] MEDS: FERROUS SULFATE UDC 300 MG/5 ML UDC GT SCH ×2 (08:29→21:00)
[2019-10-08] MEDS: ACIDOPHILUS/BULGARICUS 1 EACH TAB.CHEW GT SCH ×2 (08:29→17:00)
[2019-10-08] MEDS: SENNOSIDES 8.6 MG TABLET GT SCH ×2 (08:30→21:01)
[2019-10-08] MEDS: OXCARBAZEPINE 150 MG TABLET GT SCH ×2 (08:30→21:01)
[2019-10-08] MEDS: MULTIVIT W/MINERALS 1 TAB TABLET GT SCH (08:30)
[2019-10-08] MEDS: SIMETHICONE SUSP 40 MG/0.6 ML BOTTLE GT SCH ×2 (08:30→21:01)
[2019-10-08] MEDS: BLOOD SUGAR DIAGNOSTIC 1 EACH STRIP IN SCH ×2 (08:45→21:28)
[2019-10-08] MEDS: Z GUARD REMEDY 4 OZ OINT TP SCH ×2 (08:45→21:01)
[2019-10-08] MEDS: INSULIN REGULAR, HUMAN 100 UNIT/ML 3 ML VIAL SQ PRN ×2 (08:46→21:29)
[2019-10-08] MEDS: HYDROGEN PEROXIDE 480 ML BOTTLE TP SCH ×2 (09:20→21:35)
[2019-10-08] MEDS: GLUCERNA 1.2 1,000 ML BOTTLE NG PRN (12:50)
--- NOTE | 2019-10-08 17:19 | NUR ---
RT NOTE PATIENT RECEIVED ON MECHANICAL VENT WITH ORDERED SETTINGS, TOLERATING WELL. ALARMS ON AND AUDIBLE. VENT PLUGGED IN TO THE RED OUTLET. TRACH TUBE IN PLACE, PATENT, AND SECURED WITH TRACH TIE. AMBU BAG AND BACK UP TRACH BY THE BEDSIDE. NO DISTRESS AT THIS TIME. MONITOR THROUGHOUT SHIFT.
[2019-10-08 19:41] VITALS: BP 124/61
[2019-10-08] MEDS: ASCORBIC ACID 500 MG TABLET GT SCH (21:01)
[2019-10-08] MEDS: INSULIN GLARGINE, 100 UNIT/ML CARTRIDGE SQ SCH (21:29)
[2019-10-09] MEDS: METOCLOPRAMIDE HCL 10 MG/10 ML UDC GT SCH ×5 (00:01→23:09)
[2019-10-09] MEDS: OMEPRAZOLE 20 MG CAPSULE.DR GT SCH (05:35)
[2019-10-09] MEDS: GABAPENTIN 300 MG CAPSULE GT SCH ×3 (05:35→20:08)
[2019-10-09] MEDS: GLUCERNA 1.2 1,000 ML BOTTLE NG PRN (06:56)
[2019-10-09 07:30] VITALS: BP 134/79
[2019-10-09] MEDS: HYDROGEN PEROXIDE 480 ML BOTTLE TP SCH ×2 (09:00→21:00)
[2019-10-09] MEDS: MULTIVIT W/MINERALS 1 TAB TABLET GT SCH (09:52)
[2019-10-09] MEDS: SENNOSIDES 8.6 MG TABLET GT SCH ×2 (09:52→20:08)
[2019-10-09] MEDS: LEVETIRACETAM SOL (5 ML) 100 MG/ML UDC GT SCH ×2 (09:52→20:08)
[2019-10-09] MEDS: BLOOD SUGAR DIAGNOSTIC 1 EACH STRIP IN SCH ×2 (09:52→21:21)
[2019-10-09] MEDS: Z GUARD REMEDY 4 OZ OINT TP SCH ×2 (09:52→20:08)
[2019-10-09] MEDS: OXCARBAZEPINE 150 MG TABLET GT SCH ×2 (09:52→20:08)
[2019-10-09] MEDS: SIMETHICONE SUSP 40 MG/0.6 ML BOTTLE GT SCH ×2 (09:52→20:08)
[2019-10-09] MEDS: FERROUS SULFATE UDC 300 MG/5 ML UDC GT SCH ×2 (09:52→20:08)
[2019-10-09] MEDS: ACIDOPHILUS/BULGARICUS 1 EACH TAB.CHEW GT SCH ×2 (09:52→17:00)
[2019-10-09] MEDS: DOCUSATE SODIUM LIQ 100 MG/10 ML UDC GT SCH (09:52)
[2019-10-09 19:51] VITALS: BP 140/73
[2019-10-09] MEDS: ASCORBIC ACID 500 MG TABLET GT SCH (20:08)
[2019-10-09] MEDS: INSULIN GLARGINE, 100 UNIT/ML CARTRIDGE SQ SCH (21:22)
[2019-10-09] MEDS: INSULIN REGULAR, HUMAN 100 UNIT/ML 3 ML VIAL SQ PRN (21:24)
[2019-10-10] MEDS: OMEPRAZOLE 20 MG CAPSULE.DR GT SCH (05:05)
[2019-10-10] MEDS: GABAPENTIN 300 MG CAPSULE GT SCH ×3 (05:05→20:26)
[2019-10-10] MEDS: METOCLOPRAMIDE HCL 10 MG/10 ML UDC GT SCH ×4 (05:05→23:57)
[2019-10-10] MEDS: GLUCERNA 1.2 1,000 ML BOTTLE NG PRN ×2 (05:14→23:58)
[2019-10-10] MEDS: BLOOD SUGAR DIAGNOSTIC 1 EACH STRIP IN SCH ×2 (09:00→21:33)
[2019-10-10] MEDS: SENNOSIDES 8.6 MG TABLET GT SCH ×2 (09:00→20:26)
[2019-10-10] MEDS: Z GUARD REMEDY 4 OZ OINT TP SCH ×2 (09:00→20:26)
[2019-10-10] MEDS: SIMETHICONE SUSP 40 MG/0.6 ML BOTTLE GT SCH ×2 (09:00→20:26)
[2019-10-10] MEDS: HYDROGEN PEROXIDE 480 ML BOTTLE TP SCH ×2 (09:00→21:38)
[2019-10-10] MEDS: DOCUSATE SODIUM LIQ 100 MG/10 ML UDC GT SCH (09:00)
[2019-10-10] MEDS: FERROUS SULFATE UDC 300 MG/5 ML UDC GT SCH ×2 (09:00→20:26)
[2019-10-10] MEDS: OXCARBAZEPINE 150 MG TABLET GT SCH ×2 (09:00→20:26)
[2019-10-10] MEDS: ACIDOPHILUS/BULGARICUS 1 EACH TAB.CHEW GT SCH ×2 (09:00→17:25)
[2019-10-10] MEDS: LEVETIRACETAM SOL (5 ML) 100 MG/ML UDC GT SCH ×2 (09:00→20:26)
[2019-10-10] MEDS: MULTIVIT W/MINERALS 1 TAB TABLET GT SCH (09:00)
[2019-10-10] MEDS: INSULIN REGULAR, HUMAN 100 UNIT/ML 3 ML VIAL SQ PRN ×2 (10:06→21:35)
[2019-10-10 11:27] VITALS: BP 114/59
--- NOTE | 2019-10-10 15:44 | NUR ---
Received order to check H and H for Epogen use.
[2019-10-10 17:43] LABS: HEMOGLOBIN 8.5 g/dL (11.5-14.8)
[2019-10-10 19:42] VITALS: BP 133/67
[2019-10-10] MEDS: EPOETIN ALFA (10,000 UNIT) 10,000 UNIT/ML VIAL SQ SCH (20:25)
[2019-10-10] MEDS: ASCORBIC ACID 500 MG TABLET GT SCH (20:26)
[2019-10-10] MEDS: INSULIN GLARGINE, 100 UNIT/ML CARTRIDGE SQ SCH (21:34)
[2019-10-11] MEDS: METOCLOPRAMIDE HCL 10 MG/10 ML UDC GT SCH ×3 (05:30→17:17)
[2019-10-11] MEDS: OMEPRAZOLE 20 MG CAPSULE.DR GT SCH (05:30)
[2019-10-11] MEDS: GABAPENTIN 300 MG CAPSULE GT SCH ×3 (05:30→20:36)
--- NOTE | 2019-10-11 08:13 | NUR ---
PT RECEIVED ON CURRENT SETTINGS WITH NO SOB NOTED. AIRWAY IS PATENT AND SECURE WITH NO SIGNS OF RESPIRATORY DISTRESS AT THIS TIME. VENT IS PLUGGED IN TO RED OUTLET WITH ALARMS ON AND AUDIBLE. SUCTION PT NEEDED. WILL CONTINUE TO MONITOR. Addendum: 10/11/19 at 0815 by KEVIN ZARAGOZA RT Amended: Links added.
[2019-10-11] MEDS: ACIDOPHILUS/BULGARICUS 1 EACH TAB.CHEW GT SCH ×2 (09:01→17:17)
[2019-10-11] MEDS: SIMETHICONE SUSP 40 MG/0.6 ML BOTTLE GT SCH ×2 (09:01→20:36)
[2019-10-11] MEDS: LEVETIRACETAM SOL (5 ML) 100 MG/ML UDC GT SCH ×2 (09:01→20:36)
[2019-10-11] MEDS: MULTIVIT W/MINERALS 1 TAB TABLET GT SCH (09:01)
[2019-10-11] MEDS: OXCARBAZEPINE 150 MG TABLET GT SCH ×2 (09:01→20:36)
[2019-10-11] MEDS: SENNOSIDES 8.6 MG TABLET GT SCH ×2 (09:01→20:36)
[2019-10-11] MEDS: FERROUS SULFATE UDC 300 MG/5 ML UDC GT SCH ×2 (09:01→20:36)
[2019-10-11] MEDS: DOCUSATE SODIUM LIQ 100 MG/10 ML UDC GT SCH (09:01)
[2019-10-11] MEDS: Z GUARD REMEDY 4 OZ OINT TP SCH ×2 (09:02→20:36)
[2019-10-11] MEDS: BLOOD SUGAR DIAGNOSTIC 1 EACH STRIP IN SCH ×2 (09:19→21:54)
[2019-10-11] MEDS: INSULIN REGULAR, HUMAN 100 UNIT/ML 3 ML VIAL SQ PRN ×2 (09:20→21:55)
[2019-10-11] MEDS: HYDROGEN PEROXIDE 480 ML BOTTLE TP SCH ×2 (09:30→21:00)
--- NOTE | 2019-10-11 11:20 | NUR ---
Pt's nephrostomy has some leakage from the ostomy site. Dressing was changed. Notified Dr Luis.
[2019-10-11 11:28] VITALS: BP 99/61
--- NOTE | 2019-10-11 16:01 | NUR ---
STEPHEN called the patient's daughter, Beckie Chu [phone] to inform them about [facility] [employer] and obtain verbal consent if they agree. However, call went to voicemail and STEPHEN left call back number. STEPHEN will follow up.
[2019-10-11] MEDS: GLUCERNA 1.2 1,000 ML BOTTLE NG PRN (18:53)
[2019-10-11 20:16] VITALS: BP 143/58
[2019-10-11] MEDS: ASCORBIC ACID 500 MG TABLET GT SCH (20:36)
[2019-10-11] MEDS: INSULIN GLARGINE, 100 UNIT/ML CARTRIDGE SQ SCH (21:54)
[2019-10-12] MEDS: METOCLOPRAMIDE HCL 10 MG/10 ML UDC GT SCH ×4 (00:08→17:07)
[2019-10-12] MEDS: OMEPRAZOLE 20 MG CAPSULE.DR GT SCH (05:28)
[2019-10-12] MEDS: GABAPENTIN 300 MG CAPSULE GT SCH ×3 (05:28→21:15)
[2019-10-12 07:18] LABS: BASOPHILS % (AUTO) 0.3 % (0.0-2.0); HEMATOCRIT 23 % (33-45); HEMOGLOBIN 7.5 g/dL (11.5-14.8); LYMPHOCYTES # (AUTO) 1.2 /CMM (0.8-4.8); LYMPHOCYTES % (AUTO) 8.3 % (20.0-44.0); MEAN CORPUSCULAR HGB CONC 33 g/dl (31.0-36.0); MEAN CORPUSCULAR VOLUME 94 fL (82-100); MONOCYTES # (AUTO) 1.3 /CMM (0.1-1.30); MONOCYTES % (AUTO) 8.8 % (2.0-12.0); NEUTROPHILS # (AUTO) 11.8 /CMM (1.8-8.9); NEUTROPHILS % (AUTO) 80.6 % (43.0-81.0); PLATELET COUNT (AUTO) 516 /CMM (150-450); RED BLOOD CELL COUNT(AUTO) 2.46 MIL/uL (4.0-5.2); WHITE BLOOD COUNT (AUTO) 14.6 K/uL (4.3-11.0)
[2019-10-12 07:24] LABS: CALCIUM, SERUM 9.7 mg/dL (8.5-10.1); CREATININE 3.1 mg/dL (0.6-1.3); MAGNESIUM 2.7 mg/dL (1.8-2.4); PHOSPHORUS 5.6 mg/dL (2.5-4.9); POTASSIUM 5.5 mmol/L (3.5-5.1)
[2019-10-12] MEDS: SIMETHICONE SUSP 40 MG/0.6 ML BOTTLE GT SCH ×2 (09:00→21:15)
[2019-10-12] MEDS: ACIDOPHILUS/BULGARICUS 1 EACH TAB.CHEW GT SCH ×2 (09:00→17:07)
[2019-10-12] MEDS: DOCUSATE SODIUM LIQ 100 MG/10 ML UDC GT SCH (09:00)
[2019-10-12] MEDS: Z GUARD REMEDY 4 OZ OINT TP SCH ×2 (09:00→21:16)
[2019-10-12] MEDS: FERROUS SULFATE UDC 300 MG/5 ML UDC GT SCH ×2 (09:00→21:15)
[2019-10-12] MEDS: MULTIVIT W/MINERALS 1 TAB TABLET GT SCH (09:00)
[2019-10-12] MEDS: OXCARBAZEPINE 150 MG TABLET GT SCH ×2 (09:00→21:16)
[2019-10-12] MEDS: LEVETIRACETAM SOL (5 ML) 100 MG/ML UDC GT SCH ×2 (09:00→21:15)
[2019-10-12] MEDS: SENNOSIDES 8.6 MG TABLET GT SCH ×2 (09:00→21:16)
[2019-10-12] MEDS: BLOOD SUGAR DIAGNOSTIC 1 EACH STRIP IN SCH ×2 (09:00→21:42)
[2019-10-12] MEDS: INSULIN REGULAR, HUMAN 100 UNIT/ML 3 ML VIAL SQ PRN (10:23)
[2019-10-12 11:32] VITALS: BP 125/66
--- NOTE | 2019-10-12 12:00 | NUR ---
Left a message to Dr. Luis to review CBC and BMP result collected today, awaiting for orders.
--- NOTE | 2019-10-12 16:00 | NUR ---
Made a follow-up to Dr. Luis regarding BMP and CBC result with K+ 5.5. Awaiting for call back.
--- NOTE | 2019-10-12 16:30 | NUR ---
Notified Dr. Felix of CBC (WBC 14.6, Hbg 7.5) and BMP result with K+5.5, Na+ 128, BUN 75, Creat 3.1. new order given to repeat labs in AM and give Kayexalate 30 gm. via GT x 1 Order carried out.
--- NOTE | 2019-10-12 17:00 | NUR ---
Dr. Luis reviewed CBC and BMP result for today, new order given to give Kayexalate 15 gm. Clarified if he would like to keep the [address] Felix ordered earlier or keep the 15 gm. that he just ordered. He said to give 15 gm instead and OK to do a repeat labs in AM. Order carried out.
[2019-10-12] MEDS ORDERED: SODIUM POLYSTYRENE SULFONATE 15 G/60 ML BOTTLE PO ONE (17:30)
--- NOTE | 2019-10-12 19:20 | NUR ---
Spoke with resident's sister Beckie and updated her of patient's condition, recent lab result and new orders, including BUN 75,. Creat 3.1, WBC 14.6 and recent Hbg. 7.5. She said that she does not know that patient is being seen by therapeutic recreation assistant and concern that BUN and Creat is high. She verbalized that she would like to speak with Dr. Luis and has questions to ask him . She also mentioned that she does not attend IDT anymore because the people that she wants to speak with does not attend the IDT, like Dr. Luis or the therapeutic recreation assistant. Left a message to Dr. Luis regarding family's request to speak to him to explain what therapeutic recreation assistant does and the plan for resident. Per MD he will call her tomorrow. Endorsed.
--- NOTE | 2019-10-12 20:21 | NUR ---
RT NOTE PT RECEIVED TRACHED ON MECHANICAL VENTILATION. CUFF CHECKED VIA DAMAGE ADJUSTER. AMBU BAG/BACK UP TRACH @ BEDSIDE. SX DONE, TRACH SECURED AND PATENT. ALARMS ON AND AUDIBLE. NO DISTRESS NOTED. WILL MONITOR T/O SHIFT. Addendum: 10/12/19 at 2020 by ALIA TEIXEIRA RT Amended: Links added.
[2019-10-12] MEDS: HYDROGEN PEROXIDE 480 ML BOTTLE TP SCH (21:14)
[2019-10-12] MEDS: ASCORBIC ACID 500 MG TABLET GT SCH (21:16)
[2019-10-12] MEDS: INSULIN GLARGINE, 100 UNIT/ML CARTRIDGE SQ SCH (21:43)
[2019-10-13] MEDS: METOCLOPRAMIDE HCL 10 MG/10 ML UDC GT SCH ×5 (00:09→23:14)
[2019-10-13] MEDS: GLUCERNA 1.2 1,000 ML BOTTLE NG PRN ×2 (01:05→17:52)
[2019-10-13] MEDS: GABAPENTIN 300 MG CAPSULE GT SCH ×3 (05:32→20:42)
[2019-10-13] MEDS: OMEPRAZOLE 20 MG CAPSULE.DR GT SCH (05:32)
[2019-10-13 07:27] LABS: BASOPHILS % (AUTO) 0.2 % (0.0-2.0); EOSINOPHILS % (AUTO) 3.1 % (0.0-6.0); HEMATOCRIT 22 % (33-45); LYMPHOCYTES # (AUTO) 1.9 /CMM (0.8-4.8); LYMPHOCYTES % (AUTO) 12.9 % (20.0-44.0); MEAN CORPUSCULAR HGB CONC 32 g/dl (31.0-36.0); MEAN CORPUSCULAR VOLUME 95 fL (82-100); MONOCYTES # (AUTO) 1.6 /CMM (0.1-1.30); NEUTROPHILS # (AUTO) 10.6 /CMM (1.8-8.9); NEUTROPHILS % (AUTO) 72.8 % (43.0-81.0); PLATELET COUNT (AUTO) 503 /CMM (150-450); RED BLOOD CELL COUNT(AUTO) 2.31 MIL/uL (4.0-5.2); WHITE BLOOD COUNT (AUTO) 14.5 K/uL (4.3-11.0)
[2019-10-13 07:35] VITALS: BP 134/70
[2019-10-13 07:36] LABS: CALCIUM, SERUM 9.4 mg/dL (8.5-10.1); CREATININE 3.2 mg/dL (0.6-1.3); POTASSIUM 4.2 mmol/L (3.5-5.1)
--- NOTE | 2019-10-13 09:00 | NUR ---
Hgb 7.[address] Luis. He ordered to increase Epogen from 58677 units SC weekly to 7000 units SC twice a week. He said to start on Thursday10/17/19. Notified Beckie.
[2019-10-13] MEDS: DOCUSATE SODIUM LIQ 100 MG/10 ML UDC GT SCH (09:10)
[2019-10-13] MEDS: FERROUS SULFATE UDC 300 MG/5 ML UDC GT SCH ×2 (09:10→20:42)
[2019-10-13] MEDS: LEVETIRACETAM SOL (5 ML) 100 MG/ML UDC GT SCH ×2 (09:10→20:42)
[2019-10-13] MEDS: ACIDOPHILUS/BULGARICUS 1 EACH TAB.CHEW GT SCH ×2 (09:10→17:52)
[2019-10-13] MEDS: SIMETHICONE SUSP 40 MG/0.6 ML BOTTLE GT SCH ×2 (09:12→20:42)
[2019-10-13] MEDS: SENNOSIDES 8.6 MG TABLET GT SCH ×2 (09:12→20:42)
[2019-10-13] MEDS: OXCARBAZEPINE 150 MG TABLET GT SCH ×2 (09:13→20:42)
[2019-10-13] MEDS: MULTIVIT W/MINERALS 1 TAB TABLET GT SCH (09:13)
[2019-10-13] MEDS: BLOOD SUGAR DIAGNOSTIC 1 EACH STRIP IN SCH ×2 (09:32→21:00)
[2019-10-13] MEDS: Z GUARD REMEDY 4 OZ OINT TP SCH ×2 (09:32→20:42)
[2019-10-13] MEDS: INSULIN REGULAR, HUMAN 100 UNIT/ML 3 ML VIAL SQ PRN (09:33)
--- NOTE | 2019-10-13 15:30 | NUR ---
Family Invitation to IDT: This SW called the patients sister, Conservator, Beckie Chu to invite them to participate in IDT 10/14/2019 12:30pm. Per Beckie [phone] they would like to participate. SW will follow up and call them to participate in IDT meeting.
[2019-10-13] MEDS: HYDROGEN PEROXIDE 480 ML BOTTLE TP SCH (19:44)
[2019-10-13 20:22] VITALS: BP 121/64
[2019-10-13] MEDS: ASCORBIC ACID 500 MG TABLET GT SCH (20:42)
[2019-10-13] MEDS: INSULIN GLARGINE, 100 UNIT/ML CARTRIDGE SQ SCH (21:00)
[2019-10-14] MEDS: GABAPENTIN 300 MG CAPSULE GT SCH ×3 (05:02→20:32)
[2019-10-14] MEDS: METOCLOPRAMIDE HCL 10 MG/10 ML UDC GT SCH ×4 (05:02→23:20)
[2019-10-14] MEDS: OMEPRAZOLE 20 MG CAPSULE.DR GT SCH (05:02)
[2019-10-14] MEDS: INSULIN REGULAR, HUMAN 100 UNIT/ML 3 ML VIAL SQ PRN ×2 (05:03→11:22)
[2019-10-14 07:33] VITALS: BP 119/65
[2019-10-14] MEDS: BLOOD SUGAR DIAGNOSTIC 1 EACH STRIP IN SCH ×2 (09:00→21:08)
[2019-10-14] MEDS: HYDROGEN PEROXIDE 480 ML BOTTLE TP SCH ×2 (09:41→20:10)
[2019-10-14] MEDS: SENNOSIDES 8.6 MG TABLET GT SCH ×2 (09:49→20:32)
[2019-10-14] MEDS: ACIDOPHILUS/BULGARICUS 1 EACH TAB.CHEW GT SCH ×2 (09:49→17:17)
[2019-10-14] MEDS: OXCARBAZEPINE 150 MG TABLET GT SCH ×2 (09:49→20:32)
[2019-10-14] MEDS: Z GUARD REMEDY 4 OZ OINT TP SCH ×2 (09:49→20:32)
[2019-10-14] MEDS: MULTIVIT W/MINERALS 1 TAB TABLET GT SCH (09:49)
[2019-10-14] MEDS: LEVETIRACETAM SOL (5 ML) 100 MG/ML UDC GT SCH ×2 (09:49→20:32)
[2019-10-14] MEDS: FERROUS SULFATE UDC 300 MG/5 ML UDC GT SCH ×2 (09:49→20:32)
[2019-10-14] MEDS: DOCUSATE SODIUM LIQ 100 MG/10 ML UDC GT SCH (09:49)
[2019-10-14] MEDS: SIMETHICONE SUSP 40 MG/0.6 ML BOTTLE GT SCH ×2 (09:49→20:32)
--- NOTE | 2019-10-14 15:44 | NUR ---
INTERDISCIPLINARY PLAN OF CARE CONFERENCE took place today. The patients responsible alliance party/ Beckie Chu [phone] was called to participate via phone conference. However, call went to voicemail and SW left call back number. Dr. Felix and Interdisciplinary team discussed the plan of care in detail. Current orders as well as treatments and medications were reviewed. Charge nurse discussed dropping Hemoglobin levels & Tx; per pharmacy recommendation Hemoglobin levels to be checked 2x/week; no recent episodes of seizure. Please see other disciplines IDT notes for further details.
[2019-10-14] MEDS: GLUCERNA 1.2 1,000 ML BOTTLE NG PRN (17:17)
--- NOTE | 2019-10-14 17:47 | NUR ---
RT NOTE RECEIVED ON MECHANICAL VENT WITH ORDERED SETTINGS, TOLERATING WELL. ALARMS ON AND AUDIBLE. VENT PLUGGED IN TO RED OUTLET. AMBU BAG AND BACK UP TRACH BY THE BEDSIDE. NO DISTRESS AT THIS TIME. MONITOR THROUGHOUT SHIFT.
--- NOTE | 2019-10-14 17:55 | NUR ---
RT NOTE TRACH TUBE IN PLACE, PATENT, AND SECURED WITH TRACH TIE.
[2019-10-14 20:07] VITALS: BP 118/70
[2019-10-14] MEDS: ASCORBIC ACID 500 MG TABLET GT SCH (20:32)
[2019-10-14] MEDS: INSULIN GLARGINE, 100 UNIT/ML CARTRIDGE SQ SCH (21:08)
[2019-10-15] MEDS: METOCLOPRAMIDE HCL 10 MG/10 ML UDC GT SCH ×4 (05:28→23:06)
[2019-10-15] MEDS: OMEPRAZOLE 20 MG CAPSULE.DR GT SCH (05:28)
[2019-10-15] MEDS: GABAPENTIN 300 MG CAPSULE GT SCH ×3 (05:28→20:15)
[2019-10-15 07:45] VITALS: BP 122/75
[2019-10-15] MEDS: Z GUARD REMEDY 4 OZ OINT TP SCH ×2 (09:00→20:15)
[2019-10-15] MEDS: HYDROGEN PEROXIDE 480 ML BOTTLE TP SCH ×2 (09:00→21:07)
[2019-10-15] MEDS: LEVETIRACETAM SOL (5 ML) 100 MG/ML UDC GT SCH ×2 (09:58→20:15)
[2019-10-15] MEDS: ACIDOPHILUS/BULGARICUS 1 EACH TAB.CHEW GT SCH ×2 (09:58→17:55)
[2019-10-15] MEDS: FERROUS SULFATE UDC 300 MG/5 ML UDC GT SCH ×2 (09:58→20:15)
[2019-10-15] MEDS: DOCUSATE SODIUM LIQ 100 MG/10 ML UDC GT SCH (09:58)
[2019-10-15] MEDS: MULTIVIT W/MINERALS 1 TAB TABLET GT SCH (09:59)
[2019-10-15] MEDS: OXCARBAZEPINE 150 MG TABLET GT SCH ×2 (09:59→20:15)
[2019-10-15] MEDS: SENNOSIDES 8.6 MG TABLET GT SCH ×2 (09:59→20:15)
[2019-10-15] MEDS: BLOOD SUGAR DIAGNOSTIC 1 EACH STRIP IN SCH ×2 (09:59→20:54)
[2019-10-15] MEDS: SIMETHICONE SUSP 40 MG/0.6 ML BOTTLE GT SCH ×2 (09:59→20:15)
[2019-10-15] MEDS: INSULIN REGULAR, HUMAN 100 UNIT/ML 3 ML VIAL SQ PRN (10:16)
[2019-10-15] MEDS: GLUCERNA 1.2 1,000 ML BOTTLE NG PRN (10:18)
--- NOTE | 2019-10-15 12:00 | NUR ---
Seen and examined by Dr. Luis no new order given. He said he will a call to patient's sister as requested by family.
[2019-10-15 19:55] VITALS: BP 126/67
[2019-10-15] MEDS: ASCORBIC ACID 500 MG TABLET GT SCH (20:15)
[2019-10-15] MEDS: INSULIN GLARGINE, 100 UNIT/ML CARTRIDGE SQ SCH (21:00)
[2019-10-16] MEDS: METOCLOPRAMIDE HCL 10 MG/10 ML UDC GT SCH ×4 (05:06→23:56)
[2019-10-16] MEDS: OMEPRAZOLE 20 MG CAPSULE.DR GT SCH (05:06)
[2019-10-16] MEDS: GABAPENTIN 300 MG CAPSULE GT SCH ×3 (05:06→20:08)
[2019-10-16 07:34] VITALS: BP 130/72
[2019-10-16] MEDS: HYDROGEN PEROXIDE 480 ML BOTTLE TP SCH ×2 (09:00→19:50)
[2019-10-16] MEDS: BLOOD SUGAR DIAGNOSTIC 1 EACH STRIP IN SCH ×2 (09:00→20:21)
[2019-10-16] MEDS: OXCARBAZEPINE 150 MG TABLET GT SCH ×2 (09:00→20:09)
[2019-10-16] MEDS: FERROUS SULFATE UDC 300 MG/5 ML UDC GT SCH ×2 (09:00→20:05)
[2019-10-16] MEDS: Z GUARD REMEDY 4 OZ OINT TP SCH ×2 (09:00→20:16)
[2019-10-16] MEDS: SENNOSIDES 8.6 MG TABLET GT SCH ×2 (09:00→20:14)
[2019-10-16] MEDS: ACIDOPHILUS/BULGARICUS 1 EACH TAB.CHEW GT SCH ×2 (09:00→17:07)
[2019-10-16] MEDS: MULTIVIT W/MINERALS 1 TAB TABLET GT SCH (09:00)
[2019-10-16] MEDS: LEVETIRACETAM SOL (5 ML) 100 MG/ML UDC GT SCH ×2 (09:00→20:12)
[2019-10-16] MEDS: SIMETHICONE SUSP 40 MG/0.6 ML BOTTLE GT SCH ×2 (09:00→20:13)
[2019-10-16] MEDS: DOCUSATE SODIUM LIQ 100 MG/10 ML UDC GT SCH (09:00)
[2019-10-16] MEDS: GLUCERNA 1.2 1,000 ML BOTTLE NG PRN (14:36)
[2019-10-16] MEDS: ASCORBIC ACID 500 MG TABLET GT SCH (20:14)
[2019-10-16 20:26] VITALS: BP 115/75
[2019-10-16] MEDS: INSULIN GLARGINE, 100 UNIT/ML CARTRIDGE SQ SCH (21:40)
[2019-10-17] VITALS (10 sets, daily range): BP systolic 105–127; BP diastolic 62–75
[2019-10-17] MEDS: GABAPENTIN 300 MG CAPSULE GT SCH ×3 (05:06→20:05)
[2019-10-17] MEDS: METOCLOPRAMIDE HCL 10 MG/10 ML UDC GT SCH ×4 (05:07→23:43)
[2019-10-17] MEDS: OMEPRAZOLE 20 MG CAPSULE.DR GT SCH (05:07)
[2019-10-17 07:06] LABS: HEMOGLOBIN 6.8 g/dL (11.5-14.8)
--- NOTE | 2019-10-17 07:38 | NUR ---
Relayed lab result to Dr. Luis, Hgb-6.8 with new order to transfuse 1 unit PRBC, carried out. Addendum: 10/17/19 at 1955 by IRIS PINEDA RN no bleeding noted. Nephrostomy and F/C draining yellow colored urine. Addendum: 10/17/19 at 1956 by IRIS PINEDA RN Awake, no s/s of distress. V/S WNL.
--- NOTE | 2019-10-17 08:10 | NUR ---
Left a message to Beckie's voicemail to call us back to give us consent for blood transfusion.
--- NOTE | 2019-10-17 08:29 | NUR ---
Beckie called back and gave consent for blood transfusion.
[2019-10-17] MEDS: HYDROGEN PEROXIDE 480 ML BOTTLE TP SCH ×2 (09:00→21:00)
[2019-10-17] MEDS: OXCARBAZEPINE 150 MG TABLET GT SCH ×2 (09:56→20:07)
[2019-10-17] MEDS: LEVETIRACETAM SOL (5 ML) 100 MG/ML UDC GT SCH ×2 (09:56→20:03)
[2019-10-17] MEDS: SENNOSIDES 8.6 MG TABLET GT SCH ×2 (09:56→20:06)
[2019-10-17] MEDS: Z GUARD REMEDY 4 OZ OINT TP SCH ×2 (09:56→20:08)
[2019-10-17] MEDS: FERROUS SULFATE UDC 300 MG/5 ML UDC GT SCH ×2 (09:56→20:02)
[2019-10-17] MEDS: SIMETHICONE SUSP 40 MG/0.6 ML BOTTLE GT SCH ×2 (09:56→20:04)
[2019-10-17] MEDS: BLOOD SUGAR DIAGNOSTIC 1 EACH STRIP IN SCH ×2 (09:56→20:20)
[2019-10-17] MEDS: ACIDOPHILUS/BULGARICUS 1 EACH TAB.CHEW GT SCH ×2 (09:56→16:33)
[2019-10-17] MEDS: DOCUSATE SODIUM LIQ 100 MG/10 ML UDC GT SCH (09:56)
[2019-10-17] MEDS: MULTIVIT W/MINERALS 1 TAB TABLET GT SCH (09:56)
[2019-10-17] MEDS ORDERED: EPOETIN ALFA (10,000 UNIT) 10,000 UNIT/ML VIAL SQ SCH (15:00)
--- NOTE | 2019-10-17 15:43 | NUR ---
Started blood transfusion of 1 unit PRCB. Blood checked with BRIANNA Hogan. No leakage, no clot, no discoloration. Blood type checked, product number. Afebrile. Patient awake, response to verbal stimuli. Temp. 97.8F, NJ-79, RR-12, BP- 122/67. Will continue to monitor.
[2019-10-17] MEDS ORDERED: EPOETIN ALFA (4000 UNIT) 4,000 UNIT/ML VIAL SQ ONE (17:00)
--- NOTE | 2019-10-17 18:30 | NUR ---
Seen and examined by NAN Castillo, no new order given.
--- NOTE | 2019-10-17 19:04 | NUR ---
Blood transfusion completed, tolerated well, no adverse reaction noted the whole transfusion process. Afebrile temp. 98.2F, HR- 75, BP- 114/62, O2 sat. 100%. Will continue to monitor.
[2019-10-17] MEDS: ASCORBIC ACID 500 MG TABLET GT SCH (20:07)
[2019-10-17] MEDS: INSULIN REGULAR, HUMAN 100 UNIT/ML 3 ML VIAL SQ PRN (20:20)
[2019-10-17] MEDS: INSULIN GLARGINE, 100 UNIT/ML CARTRIDGE SQ SCH (21:30)
[2019-10-17] MEDS: GLUCERNA 1.2 1,000 ML BOTTLE NG PRN (23:40)
[2019-10-18] MEDS: GABAPENTIN 300 MG CAPSULE GT SCH ×3 (05:13→20:19)
[2019-10-18] MEDS: METOCLOPRAMIDE HCL 10 MG/10 ML UDC GT SCH ×4 (05:14→23:48)
[2019-10-18] MEDS: OMEPRAZOLE 20 MG CAPSULE.DR GT SCH (05:14)
[2019-10-18 07:42] VITALS: BP 129/70
[2019-10-18] MEDS: SIMETHICONE SUSP 40 MG/0.6 ML BOTTLE GT SCH ×2 (08:20→20:19)
[2019-10-18] MEDS: FERROUS SULFATE UDC 300 MG/5 ML UDC GT SCH ×2 (08:20→20:19)
[2019-10-18] MEDS: MULTIVIT W/MINERALS 1 TAB TABLET GT SCH (08:20)
[2019-10-18] MEDS: LEVETIRACETAM SOL (5 ML) 100 MG/ML UDC GT SCH ×2 (08:20→20:19)
[2019-10-18] MEDS: SENNOSIDES 8.6 MG TABLET GT SCH ×2 (08:20→20:19)
[2019-10-18] MEDS: DOCUSATE SODIUM LIQ 100 MG/10 ML UDC GT SCH (08:20)
[2019-10-18] MEDS: INSULIN REGULAR, HUMAN 100 UNIT/ML 3 ML VIAL SQ PRN ×2 (08:20→21:00)
[2019-10-18] MEDS: BLOOD SUGAR DIAGNOSTIC 1 EACH STRIP IN SCH ×2 (08:20→20:59)
[2019-10-18] MEDS: ACIDOPHILUS/BULGARICUS 1 EACH TAB.CHEW GT SCH ×2 (08:20→17:11)
[2019-10-18] MEDS: Z GUARD REMEDY 4 OZ OINT TP SCH ×2 (08:20→20:59)
[2019-10-18] MEDS: OXCARBAZEPINE 150 MG TABLET GT SCH ×2 (09:45→20:19)
[2019-10-18] MEDS: HYDROGEN PEROXIDE 480 ML BOTTLE TP SCH ×2 (09:54→21:00)
--- NOTE | 2019-10-18 13:08 | NUR ---
Asked Dr Luis if he wanted to do a follow-up H and H since pt received 1 unit of PRBC yesterday. He said it is fine.
[2019-10-18 14:32] LABS: HEMOGLOBIN 8.5 g/dL (11.5-14.8)
[2019-10-18 19:33] VITALS: BP 154/76
[2019-10-18] MEDS: ASCORBIC ACID 500 MG TABLET GT SCH (20:19)
[2019-10-18] MEDS: INSULIN GLARGINE, 100 UNIT/ML CARTRIDGE SQ SCH (21:00)
[2019-10-19] MEDS: GABAPENTIN 300 MG CAPSULE GT SCH ×3 (05:01→22:01)
[2019-10-19] MEDS: METOCLOPRAMIDE HCL 10 MG/10 ML UDC GT SCH ×4 (05:01→23:30)
[2019-10-19] MEDS: OMEPRAZOLE 20 MG CAPSULE.DR GT SCH (05:01)
--- NOTE | 2019-10-19 08:02 | NUR ---
PT RECEIVED ON CURRENT SETTINGS AND IS STABLE WITH NO SOB NOTED. AIRWAY IS PATENT AND SECURE WITH NO SIGNS OF RESPIRATORY DISTRESS. VENT IS PLUGGED INTO RED OUTLET WITH ALARMS ON AND AUDIBLE. SUCTION PT NEEDED. WILL CONTINUE TO MONITOR. Addendum: 10/19/19 at 0802 by KEVIN ZARAGOZA RT Amended: Links added.
[2019-10-19 08:09] VITALS: BP 130/85
[2019-10-19] MEDS: SENNOSIDES 8.6 MG TABLET GT SCH ×2 (09:00→21:57)
[2019-10-19] MEDS: FERROUS SULFATE UDC 300 MG/5 ML UDC GT SCH ×2 (09:00→21:52)
[2019-10-19] MEDS: LEVETIRACETAM SOL (5 ML) 100 MG/ML UDC GT SCH ×2 (09:00→22:01)
[2019-10-19] MEDS: BLOOD SUGAR DIAGNOSTIC 1 EACH STRIP IN SCH ×2 (09:00→22:10)
[2019-10-19] MEDS: OXCARBAZEPINE 150 MG TABLET GT SCH ×2 (09:00→22:01)
[2019-10-19] MEDS: DOCUSATE SODIUM LIQ 100 MG/10 ML UDC GT SCH (09:00)
[2019-10-19] MEDS: MULTIVIT W/MINERALS 1 TAB TABLET GT SCH (09:00)
[2019-10-19] MEDS: SIMETHICONE SUSP 40 MG/0.6 ML BOTTLE GT SCH ×2 (09:00→21:56)
[2019-10-19] MEDS: ACIDOPHILUS/BULGARICUS 1 EACH TAB.CHEW GT SCH ×2 (09:00→17:30)
[2019-10-19] MEDS: Z GUARD REMEDY 4 OZ OINT TP SCH ×2 (09:00→21:58)
[2019-10-19] MEDS: HYDROGEN PEROXIDE 480 ML BOTTLE TP SCH ×2 (09:25→20:01)
[2019-10-19] MEDS: INSULIN REGULAR, HUMAN 100 UNIT/ML 3 ML VIAL SQ PRN ×2 (10:24→22:11)
[2019-10-19] MEDS: GLUCERNA 1.2 1,000 ML BOTTLE NG PRN (17:42)
--- NOTE | 2019-10-19 19:53 | NUR ---
RT NOTE PT RECEIVED TRACHED ON MECHANICAL VENTILATION. CUFF CHECKED VIA UROLOGY PHYSICIAN ASSISTANT. SX DONE, TRACH SECURED AND PATENT. ALARMS ON AND AUDIBLE. NO DISTRESS NOTED. CONT. PULSE OX CONNECTED. WILL MONITOR T/O SHIFT. Addendum: 10/19/19 at 1953 by BRIEN NEAL RT Amended: Links added.
[2019-10-19 20:15] VITALS: BP 131/72
[2019-10-19] MEDS: ASCORBIC ACID 500 MG TABLET GT SCH (21:58)
[2019-10-19] MEDS: INSULIN GLARGINE, 100 UNIT/ML CARTRIDGE SQ SCH (22:16)
[2019-10-20] MEDS: OMEPRAZOLE 20 MG CAPSULE.DR GT SCH (05:23)
[2019-10-20] MEDS: METOCLOPRAMIDE HCL 10 MG/10 ML UDC GT SCH ×4 (05:23→23:40)
[2019-10-20] MEDS: GABAPENTIN 300 MG CAPSULE GT SCH ×3 (05:25→20:18)
[2019-10-20 07:21] VITALS: BP 103/55
[2019-10-20 08:06] LABS: HEMOGLOBIN 8.8 g/dL (11.5-14.8)
[2019-10-20] MEDS: ACIDOPHILUS/BULGARICUS 1 EACH TAB.CHEW GT SCH ×2 (09:06→17:20)
[2019-10-20] MEDS: FERROUS SULFATE UDC 300 MG/5 ML UDC GT SCH ×2 (09:06→20:18)
[2019-10-20] MEDS: OXCARBAZEPINE 150 MG TABLET GT SCH ×2 (09:06→20:18)
[2019-10-20] MEDS: DOCUSATE SODIUM LIQ 100 MG/10 ML UDC GT SCH (09:06)
[2019-10-20] MEDS: LEVETIRACETAM SOL (5 ML) 100 MG/ML UDC GT SCH ×2 (09:06→20:18)
[2019-10-20] MEDS: SIMETHICONE SUSP 40 MG/0.6 ML BOTTLE GT SCH ×2 (09:06→20:18)
[2019-10-20] MEDS: SENNOSIDES 8.6 MG TABLET GT SCH ×2 (09:06→20:18)
[2019-10-20] MEDS: MULTIVIT W/MINERALS 1 TAB TABLET GT SCH (09:06)
[2019-10-20] MEDS: HYDROGEN PEROXIDE 480 ML BOTTLE TP SCH ×2 (09:18→19:42)
[2019-10-20] MEDS: BLOOD SUGAR DIAGNOSTIC 1 EACH STRIP IN SCH ×2 (09:21→20:57)
[2019-10-20] MEDS: INSULIN REGULAR, HUMAN 100 UNIT/ML 3 ML VIAL SQ PRN (09:21)
[2019-10-20] MEDS: Z GUARD REMEDY 4 OZ OINT TP SCH (09:22)
[2019-10-20] MEDS: EPOETIN ALFA (4000 UNIT) 4,000 UNIT/ML VIAL SQ SCH (15:00)
[2019-10-20] MEDS: GLUCERNA 1.2 1,000 ML BOTTLE NG PRN (17:30)
--- NOTE | 2019-10-20 19:03 | NUR ---
Seen by Dr Luis today. He ordered urine culture for ESBL clearance.
[2019-10-20 19:42] VITALS: BP 123/70
[2019-10-20] MEDS: ASCORBIC ACID 500 MG TABLET GT SCH (20:18)
[2019-10-20] MEDS: INSULIN GLARGINE, 100 UNIT/ML CARTRIDGE SQ SCH (21:00)
--- NOTE | 2019-10-20 21:30 | NUR ---
Patient Beckie called she said she missed a call from us earlier. Updated her with patient condition and made aware of new order for urine culture for ESBL clearance and HGB 8.8 Beckie is very appreciative for updating her.
[2019-10-21] MEDS: BISACODYL SUPP (10 MG) 10 MG/SUPP.RECT SUPP.RECT RC PRN (04:17)
[2019-10-21] MEDS: GABAPENTIN 300 MG CAPSULE GT SCH ×3 (04:17→20:21)
[2019-10-21] MEDS: OMEPRAZOLE 20 MG CAPSULE.DR GT SCH (05:06)
[2019-10-21] MEDS: METOCLOPRAMIDE HCL 10 MG/10 ML UDC GT SCH ×4 (05:06→23:07)
[2019-10-21 07:28] VITALS: BP 142/57
[2019-10-21] MEDS: LEVETIRACETAM SOL (5 ML) 100 MG/ML UDC GT SCH ×2 (08:29→20:21)
[2019-10-21] MEDS: MULTIVIT W/MINERALS 1 TAB TABLET GT SCH (08:29)
[2019-10-21] MEDS: DOCUSATE SODIUM LIQ 100 MG/10 ML UDC GT SCH (08:29)
[2019-10-21] MEDS: FERROUS SULFATE UDC 300 MG/5 ML UDC GT SCH ×2 (08:29→20:21)
[2019-10-21] MEDS: OXCARBAZEPINE 150 MG TABLET GT SCH ×2 (08:29→20:21)
[2019-10-21] MEDS: SIMETHICONE SUSP 40 MG/0.6 ML BOTTLE GT SCH ×2 (08:29→20:21)
[2019-10-21] MEDS: SENNOSIDES 8.6 MG TABLET GT SCH ×2 (08:29→20:21)
[2019-10-21] MEDS: ACIDOPHILUS/BULGARICUS 1 EACH TAB.CHEW GT SCH ×2 (08:29→17:10)
[2019-10-21] MEDS: BLOOD SUGAR DIAGNOSTIC 1 EACH STRIP IN SCH ×2 (08:44→21:22)
[2019-10-21] MEDS: INSULIN REGULAR, HUMAN 100 UNIT/ML 3 ML VIAL SQ PRN (08:45)
[2019-10-21] MEDS: HYDROGEN PEROXIDE 480 ML BOTTLE TP SCH ×2 (10:30→21:04)
--- NOTE | 2019-10-21 15:52 | NUR ---
Facility Protocols: Per Director's request, this SW called the patient's sister, Beckie Chu [phone] to provide an update on the facilities protocols pertaining to the ongoing COVID-19 pandemic. However, call went to voicemail and SW left call back number. SW will follow up.
[2019-10-21] MEDS: GLUCERNA 1.2 1,000 ML BOTTLE NG PRN (16:11)
[2019-10-21 19:30] VITALS: BP 139/75
[2019-10-21] MEDS: ASCORBIC ACID 500 MG TABLET GT SCH (20:21)
[2019-10-21] MEDS: INSULIN GLARGINE, 100 UNIT/ML CARTRIDGE SQ SCH (21:22)
[2019-10-22] MEDS: METOCLOPRAMIDE HCL 10 MG/10 ML UDC GT SCH ×4 (05:02→23:24)
[2019-10-22] MEDS: OMEPRAZOLE 20 MG CAPSULE.DR GT SCH (05:02)
[2019-10-22] MEDS: GABAPENTIN 300 MG CAPSULE GT SCH ×3 (05:02→20:28)
[2019-10-22 07:46] VITALS: BP 124/74
[2019-10-22] MEDS: DOCUSATE SODIUM LIQ 100 MG/10 ML UDC GT SCH (09:47)
[2019-10-22] MEDS: LEVETIRACETAM SOL (5 ML) 100 MG/ML UDC GT SCH ×2 (09:47→20:28)
[2019-10-22] MEDS: OXCARBAZEPINE 150 MG TABLET GT SCH ×2 (09:47→20:28)
[2019-10-22] MEDS: SENNOSIDES 8.6 MG TABLET GT SCH ×2 (09:47→20:28)
[2019-10-22] MEDS: MULTIVIT W/MINERALS 1 TAB TABLET GT SCH (09:47)
[2019-10-22] MEDS: FERROUS SULFATE UDC 300 MG/5 ML UDC GT SCH ×2 (09:47→20:28)
[2019-10-22] MEDS: SIMETHICONE SUSP 40 MG/0.6 ML BOTTLE GT SCH ×2 (09:47→20:28)
[2019-10-22] MEDS: ACIDOPHILUS/BULGARICUS 1 EACH TAB.CHEW GT SCH ×2 (09:47→17:03)
[2019-10-22] MEDS: BLOOD SUGAR DIAGNOSTIC 1 EACH STRIP IN SCH ×2 (09:47→20:58)
[2019-10-22] MEDS: INSULIN REGULAR, HUMAN 100 UNIT/ML 3 ML VIAL SQ PRN (10:07)
[2019-10-22] MEDS: HYDROGEN PEROXIDE 480 ML BOTTLE TP SCH ×2 (10:25→19:50)
[2019-10-22] MEDS: GLUCERNA 1.2 1,000 ML BOTTLE NG PRN (11:12)
[2019-10-22 19:41] VITALS: BP 134/76
--- NOTE | 2019-10-22 19:56 | NUR ---
RT NOTE PT RECEIVED TRACHED ON MECHANICAL VENTILATION. CUFF CHECKED VIA IMPORT/EXPORT FREIGHT FORWARDER. SX DONE, TRACH SECURED AND PATENT. ALARMS ON AND AUDIBLE. VENT PLUGGED TO RED OUTLET. NO DISTRESS NOTED. WILL MONITOR T/O SHIFT. CONT. PULSE OX CONNECTED. Addendum: 10/22/19 at 1956 by BRIEN NEAL RT Amended: Links added.
[2019-10-22] MEDS: ASCORBIC ACID 500 MG TABLET GT SCH (20:28)
[2019-10-22] MEDS: INSULIN GLARGINE, 100 UNIT/ML CARTRIDGE SQ SCH (21:01)
[2019-10-23] MEDS: GABAPENTIN 300 MG CAPSULE GT SCH ×3 (05:03→20:12)
[2019-10-23] MEDS: OMEPRAZOLE 20 MG CAPSULE.DR GT SCH (05:03)
[2019-10-23] MEDS: METOCLOPRAMIDE HCL 10 MG/10 ML UDC GT SCH ×4 (05:03→23:55)
[2019-10-23 07:53] VITALS: BP 99/39
[2019-10-23] MEDS: HYDROGEN PEROXIDE 480 ML BOTTLE TP SCH ×2 (08:10→21:00)
[2019-10-23] MEDS: DOCUSATE SODIUM LIQ 100 MG/10 ML UDC GT SCH (09:38)
[2019-10-23] MEDS: SIMETHICONE SUSP 40 MG/0.6 ML BOTTLE GT SCH ×2 (09:38→20:11)
[2019-10-23] MEDS: ACIDOPHILUS/BULGARICUS 1 EACH TAB.CHEW GT SCH ×2 (09:38→16:40)
[2019-10-23] MEDS: LEVETIRACETAM SOL (5 ML) 100 MG/ML UDC GT SCH ×2 (09:38→20:11)
[2019-10-23] MEDS: FERROUS SULFATE UDC 300 MG/5 ML UDC GT SCH ×2 (09:38→20:10)
[2019-10-23] MEDS: BLOOD SUGAR DIAGNOSTIC 1 EACH STRIP IN SCH ×2 (09:39→20:14)
[2019-10-23] MEDS: OXCARBAZEPINE 150 MG TABLET GT SCH ×2 (09:39→20:13)
[2019-10-23] MEDS: INSULIN REGULAR, HUMAN 100 UNIT/ML 3 ML VIAL SQ PRN ×2 (09:39→20:21)
[2019-10-23] MEDS: SENNOSIDES 8.6 MG TABLET GT SCH ×2 (09:39→20:12)
[2019-10-23] MEDS: MULTIVIT W/MINERALS 1 TAB TABLET GT SCH (09:39)
[2019-10-23] MEDS: GLUCERNA 1.2 1,000 ML BOTTLE NG PRN (11:10)
[2019-10-23 19:18] VITALS: BP 127/74
[2019-10-23] MEDS: ASCORBIC ACID 500 MG TABLET GT SCH (20:14)
[2019-10-23] MEDS: INSULIN GLARGINE, 100 UNIT/ML CARTRIDGE SQ SCH (21:20)
[2019-10-24] MEDS: GABAPENTIN 300 MG CAPSULE GT SCH ×3 (05:12→20:04)
[2019-10-24] MEDS: OMEPRAZOLE 20 MG CAPSULE.DR GT SCH (05:12)
[2019-10-24] MEDS: METOCLOPRAMIDE HCL 10 MG/10 ML UDC GT SCH ×3 (05:12→18:20)
[2019-10-24] MEDS: GLUCERNA 1.2 1,000 ML BOTTLE NG PRN ×2 (05:13→22:54)
[2019-10-24 07:52] VITALS: BP 132/57
[2019-10-24] MEDS: HYDROGEN PEROXIDE 480 ML BOTTLE TP SCH ×2 (07:57→21:00)
[2019-10-24 08:03] LABS: HEMOGLOBIN 7.5 g/dL (11.5-14.8)
[2019-10-24] MEDS: MULTIVIT W/MINERALS 1 TAB TABLET GT SCH (09:00)
[2019-10-24] MEDS: SIMETHICONE SUSP 40 MG/0.6 ML BOTTLE GT SCH ×2 (09:00→20:04)
[2019-10-24] MEDS: SENNOSIDES 8.6 MG TABLET GT SCH ×2 (09:00→20:05)
[2019-10-24] MEDS: LEVETIRACETAM SOL (5 ML) 100 MG/ML UDC GT SCH ×2 (09:00→20:04)
[2019-10-24] MEDS: DOCUSATE SODIUM LIQ 100 MG/10 ML UDC GT SCH (09:00)
[2019-10-24] MEDS: FERROUS SULFATE UDC 300 MG/5 ML UDC GT SCH ×2 (09:00→20:03)
[2019-10-24] MEDS: BLOOD SUGAR DIAGNOSTIC 1 EACH STRIP IN SCH ×2 (09:00→20:13)
[2019-10-24] MEDS: OXCARBAZEPINE 150 MG TABLET GT SCH ×2 (09:00→20:05)
[2019-10-24] MEDS: ACIDOPHILUS/BULGARICUS 1 EACH TAB.CHEW GT SCH ×2 (09:00→17:00)
--- NOTE | 2019-10-24 10:22 | NUR ---
Leon's sister Beckie called to give her new phone number [phone].
[2019-10-24] MEDS: EPOETIN ALFA (4000 UNIT) 4,000 UNIT/ML VIAL SQ SCH (15:55)
--- NOTE | 2019-10-24 16:00 | NUR ---
Dr Luis ordered to resume Heparin 5000 units SC q 12 for DVT prophylaxis. Pt not having hematuria anymore. Relayed urine culture result that shows mixed contaminants. Dr Luis said to ask infection control nurse Didi if that urine culture result can be used to DC contact isolation for ESBL urine. Left message for Didi. Pt had a temp of 100 F this morning, Tylenol was not administered and upon rechecking temp it was 98.6 F. Pt's urine clear and yellowish, no foul odor. No increased coughing or congestion noted.
[2019-10-24] MEDS: HEPARIN SODIUM, PORCINE 5000 UNITS/1 ML VIAL SQ SCH (18:48)
[2019-10-24] MEDS: ASCORBIC ACID 500 MG TABLET GT SCH (20:06)
[2019-10-24 20:14] VITALS: BP 113/64
[2019-10-24] MEDS: INSULIN REGULAR, HUMAN 100 UNIT/ML 3 ML VIAL SQ PRN (20:14)
[2019-10-24] MEDS: INSULIN GLARGINE, 100 UNIT/ML CARTRIDGE SQ SCH (21:40)
[2019-10-25] MEDS: METOCLOPRAMIDE HCL 10 MG/10 ML UDC GT SCH ×5 (00:07→23:55)
[2019-10-25] MEDS: GABAPENTIN 300 MG CAPSULE GT SCH ×3 (04:48→20:09)
[2019-10-25] MEDS: OMEPRAZOLE 20 MG CAPSULE.DR GT SCH (05:06)
[2019-10-25] MEDS: HEPARIN SODIUM, PORCINE 5000 UNITS/1 ML VIAL SQ SCH ×2 (05:07→17:27)
[2019-10-25 07:28] VITALS: BP 120/73
[2019-10-25] MEDS: HYDROGEN PEROXIDE 480 ML BOTTLE TP SCH ×2 (09:00→21:00)
[2019-10-25] MEDS: OXCARBAZEPINE 150 MG TABLET GT SCH ×2 (09:00→20:10)
[2019-10-25] MEDS: MULTIVIT W/MINERALS 1 TAB TABLET GT SCH (09:00)
[2019-10-25] MEDS: SENNOSIDES 8.6 MG TABLET GT SCH ×2 (09:00→20:10)
[2019-10-25] MEDS: LEVETIRACETAM SOL (5 ML) 100 MG/ML UDC GT SCH ×2 (09:00→20:08)
[2019-10-25] MEDS: ACIDOPHILUS/BULGARICUS 1 EACH TAB.CHEW GT SCH ×2 (09:00→17:26)
[2019-10-25] MEDS: DOCUSATE SODIUM LIQ 100 MG/10 ML UDC GT SCH (09:00)
[2019-10-25] MEDS: SIMETHICONE SUSP 40 MG/0.6 ML BOTTLE GT SCH ×2 (09:00→20:09)
[2019-10-25] MEDS: FERROUS SULFATE UDC 300 MG/5 ML UDC GT SCH ×2 (09:00→20:07)
[2019-10-25] MEDS: BLOOD SUGAR DIAGNOSTIC 1 EACH STRIP IN SCH ×2 (09:13→20:11)
[2019-10-25] MEDS: INSULIN REGULAR, HUMAN 100 UNIT/ML 3 ML VIAL SQ PRN ×2 (09:13→20:18)
--- NOTE | 2019-10-25 17:12 | NUR ---
RT Pt received trached on mechanical ventilation with noted settings. Pt is awake and responds to stimuli when suctioned. No SOB or respiratory distress noted. Addendum: 10/25/19 at 1713 by MIMI WALKER RT Amended: Links added.
[2019-10-25] MEDS: GLUCERNA 1.2 1,000 ML BOTTLE NG PRN ×3 (19:23→23:55)
[2019-10-25] MEDS: ASCORBIC ACID 500 MG TABLET GT SCH (20:11)
[2019-10-25 21:07] VITALS: BP 115/76
[2019-10-25] MEDS: INSULIN GLARGINE, 100 UNIT/ML CARTRIDGE SQ SCH (21:23)
[2019-10-26] MEDS: GABAPENTIN 300 MG CAPSULE GT SCH ×3 (04:51→21:06)
[2019-10-26] MEDS: METOCLOPRAMIDE HCL 10 MG/10 ML UDC GT SCH ×3 (05:23→17:53)
[2019-10-26] MEDS: OMEPRAZOLE 20 MG CAPSULE.DR GT SCH (05:23)
[2019-10-26] MEDS: HEPARIN SODIUM, PORCINE 5000 UNITS/1 ML VIAL SQ SCH ×2 (05:24→17:53)
[2019-10-26 07:54] VITALS: BP 105/70
[2019-10-26] MEDS: DOCUSATE SODIUM LIQ 100 MG/10 ML UDC GT SCH (09:00)
[2019-10-26] MEDS: LEVETIRACETAM SOL (5 ML) 100 MG/ML UDC GT SCH ×2 (09:00→21:02)
[2019-10-26] MEDS: MULTIVIT W/MINERALS 1 TAB TABLET GT SCH (09:00)
[2019-10-26] MEDS: HYDROGEN PEROXIDE 480 ML BOTTLE TP SCH ×2 (09:00→21:11)
[2019-10-26] MEDS: SIMETHICONE SUSP 40 MG/0.6 ML BOTTLE GT SCH ×2 (09:00→21:11)
[2019-10-26] MEDS: FERROUS SULFATE UDC 300 MG/5 ML UDC GT SCH ×2 (09:00→21:12)
[2019-10-26] MEDS: ACIDOPHILUS/BULGARICUS 1 EACH TAB.CHEW GT SCH ×2 (09:00→17:52)
[2019-10-26] MEDS: SENNOSIDES 8.6 MG TABLET GT SCH ×2 (09:00→21:02)
[2019-10-26] MEDS: OXCARBAZEPINE 150 MG TABLET GT SCH ×2 (09:00→21:07)
[2019-10-26] MEDS: BLOOD SUGAR DIAGNOSTIC 1 EACH STRIP IN SCH ×2 (09:22→21:11)
[2019-10-26] MEDS: INSULIN REGULAR, HUMAN 100 UNIT/ML 3 ML VIAL SQ PRN (09:23)
--- NOTE | 2019-10-26 10:44 | NUR ---
Family Invitation to IDT: This SW called the patient's sister/Conservator, Beckie Chu to invite her to the IDT taking place Monday, October 28, 2019 12:30pm-1:30pm. Per Beckie, she is not available to participate via phone conference. Beckie stated,"the charge nurse keeps me well updated and I don't have any questions for the doctor as of now".
--- NOTE | 2019-10-26 10:50 | NUR ---
Facility Protocols: Per Director's request, this SW called the patient's Son, Beckie Chu to provide an update on the facility's protocols pertaining to the ongoing COVID-19 pandemic. Beckie was receptive to speaking with STEPHEN. STEPHEN informed the family that essential infection control practices continue to be implemented in our facility and that the visitation restrictions will remain in place until otherwise stated by The Department of Public Health. STEPHEN reminded Beckie of alternative means of communication including Zoom video calls, calling our facility and [employer]. Beckie expressed understanding. Family will be updated if any changes occur.
[2019-10-26 19:41] VITALS: BP 138/75
[2019-10-26] MEDS: ASCORBIC ACID 500 MG TABLET GT SCH (21:07)
[2019-10-26] MEDS: GLUCERNA 1.2 1,000 ML BOTTLE NG PRN (21:12)
[2019-10-26] MEDS: INSULIN GLARGINE, 100 UNIT/ML CARTRIDGE SQ SCH (21:49)
[2019-10-27] MEDS: METOCLOPRAMIDE HCL 10 MG/10 ML UDC GT SCH ×5 (00:09→23:12)
[2019-10-27] MEDS: GABAPENTIN 300 MG CAPSULE GT SCH ×3 (05:03→20:36)
[2019-10-27] MEDS: OMEPRAZOLE 20 MG CAPSULE.DR GT SCH (05:34)
[2019-10-27] MEDS: HEPARIN SODIUM, PORCINE 5000 UNITS/1 ML VIAL SQ SCH ×2 (05:35→17:16)
[2019-10-27 07:06] LABS: HEMOGLOBIN 8.3 g/dL (11.5-14.8)
[2019-10-27 07:44] VITALS: BP 140/85
[2019-10-27] MEDS: SENNOSIDES 8.6 MG TABLET GT SCH ×2 (08:40→20:36)
[2019-10-27] MEDS: FERROUS SULFATE UDC 300 MG/5 ML UDC GT SCH ×2 (08:40→20:36)
[2019-10-27] MEDS: MULTIVIT W/MINERALS 1 TAB TABLET GT SCH (08:40)
[2019-10-27] MEDS: OXCARBAZEPINE 150 MG TABLET GT SCH ×2 (08:40→20:36)
[2019-10-27] MEDS: DOCUSATE SODIUM LIQ 100 MG/10 ML UDC GT SCH (08:40)
[2019-10-27] MEDS: ACIDOPHILUS/BULGARICUS 1 EACH TAB.CHEW GT SCH ×2 (08:40→17:15)
[2019-10-27] MEDS: SIMETHICONE SUSP 40 MG/0.6 ML BOTTLE GT SCH ×2 (08:40→20:36)
[2019-10-27] MEDS: BLOOD SUGAR DIAGNOSTIC 1 EACH STRIP IN SCH ×2 (08:40→20:36)
[2019-10-27] MEDS: INSULIN REGULAR, HUMAN 100 UNIT/ML 3 ML VIAL SQ PRN ×2 (08:40→20:36)
[2019-10-27] MEDS: LEVETIRACETAM SOL (5 ML) 100 MG/ML UDC GT SCH ×2 (08:40→20:36)
[2019-10-27] MEDS: HYDROGEN PEROXIDE 480 ML BOTTLE TP SCH ×2 (11:43→21:37)
[2019-10-27] MEDS: EPOETIN ALFA (4000 UNIT) 4,000 UNIT/ML VIAL SQ SCH (15:45)
[2019-10-27] MEDS: GLUCERNA 1.2 1,000 ML BOTTLE NG PRN (17:18)
[2019-10-27 19:39] VITALS: BP 121/67
[2019-10-27] MEDS: ASCORBIC ACID 500 MG TABLET GT SCH (20:36)
[2019-10-27] MEDS: INSULIN GLARGINE, 100 UNIT/ML CARTRIDGE SQ SCH (22:53)
[2019-10-28] MEDS: HEPARIN SODIUM, PORCINE 5000 UNITS/1 ML VIAL SQ SCH ×2 (05:01→18:35)
[2019-10-28] MEDS: METOCLOPRAMIDE HCL 10 MG/10 ML UDC GT SCH ×3 (05:01→18:34)
[2019-10-28] MEDS: OMEPRAZOLE 20 MG CAPSULE.DR GT SCH (05:01)
[2019-10-28] MEDS: GABAPENTIN 300 MG CAPSULE GT SCH ×3 (05:01→21:58)
[2019-10-28 07:31] VITALS: BP 162/81
[2019-10-28] MEDS: MULTIVIT W/MINERALS 1 TAB TABLET GT SCH (09:00)
[2019-10-28] MEDS: ACIDOPHILUS/BULGARICUS 1 EACH TAB.CHEW GT SCH ×2 (09:00→17:00)
[2019-10-28] MEDS: LEVETIRACETAM SOL (5 ML) 100 MG/ML UDC GT SCH ×2 (09:00→21:57)
[2019-10-28] MEDS: DOCUSATE SODIUM LIQ 100 MG/10 ML UDC GT SCH (09:00)
[2019-10-28] MEDS: OXCARBAZEPINE 150 MG TABLET GT SCH ×2 (09:00→21:58)
[2019-10-28] MEDS: FERROUS SULFATE UDC 300 MG/5 ML UDC GT SCH ×2 (09:00→21:57)
[2019-10-28] MEDS: SIMETHICONE SUSP 40 MG/0.6 ML BOTTLE GT SCH ×2 (09:00→21:58)
[2019-10-28] MEDS: SENNOSIDES 8.6 MG TABLET GT SCH ×2 (09:00→21:58)
[2019-10-28] MEDS: INSULIN REGULAR, HUMAN 100 UNIT/ML 3 ML VIAL SQ PRN ×2 (09:29→21:56)
[2019-10-28] MEDS: BLOOD SUGAR DIAGNOSTIC 1 EACH STRIP IN SCH ×2 (09:29→21:55)
[2019-10-28] MEDS: HYDROGEN PEROXIDE 480 ML BOTTLE TP SCH ×2 (09:39→20:18)
--- NOTE | 2019-10-28 16:17 | NUR ---
INTERDISCIPLINARY PLAN OF CARE CONFERENCE was held today. The patients conservator, Beckie Chu [phone] was unable to participate in IDT meeting. Charge nurse discussed 10/16 blood transfusion for low hemoglobin levels; 10/19 Epogen increased; 10/[address] Felix and Interdisciplinary team discussed the plan of care in detail. Current orders as well as treatments and medications were reviewed. See other disciplines IDT notes for further details.
[2019-10-28 20:29] VITALS: BP 124/68
[2019-10-28] MEDS: ASCORBIC ACID 500 MG TABLET GT SCH (21:58)
[2019-10-28] MEDS: INSULIN GLARGINE, 100 UNIT/ML CARTRIDGE SQ SCH (22:09)
[2019-10-29] MEDS: METOCLOPRAMIDE HCL 10 MG/10 ML UDC GT SCH ×5 (00:36→23:56)
[2019-10-29] MEDS: GABAPENTIN 300 MG CAPSULE GT SCH ×3 (05:42→21:24)
[2019-10-29] MEDS: OMEPRAZOLE 20 MG CAPSULE.DR GT SCH (05:42)
[2019-10-29] MEDS: HEPARIN SODIUM, PORCINE 5000 UNITS/1 ML VIAL SQ SCH ×2 (06:21→18:42)
[2019-10-29 07:42] VITALS: BP 126/73
[2019-10-29] MEDS: DOCUSATE SODIUM LIQ 100 MG/10 ML UDC GT SCH (08:42)
[2019-10-29] MEDS: ACIDOPHILUS/BULGARICUS 1 EACH TAB.CHEW GT SCH ×2 (08:43→16:46)
[2019-10-29] MEDS: LEVETIRACETAM SOL (5 ML) 100 MG/ML UDC GT SCH ×2 (08:43→21:24)
[2019-10-29] MEDS: FERROUS SULFATE UDC 300 MG/5 ML UDC GT SCH ×2 (08:43→21:24)
[2019-10-29] MEDS: SENNOSIDES 8.6 MG TABLET GT SCH ×2 (08:44→21:24)
[2019-10-29] MEDS: MULTIVIT W/MINERALS 1 TAB TABLET GT SCH (08:44)
[2019-10-29] MEDS: SIMETHICONE SUSP 40 MG/0.6 ML BOTTLE GT SCH ×2 (08:44→21:24)
[2019-10-29] MEDS: BLOOD SUGAR DIAGNOSTIC 1 EACH STRIP IN SCH ×2 (08:45→21:24)
[2019-10-29] MEDS: INSULIN REGULAR, HUMAN 100 UNIT/ML 3 ML VIAL SQ PRN ×2 (08:55→21:27)
[2019-10-29] MEDS: OXCARBAZEPINE 150 MG TABLET GT SCH ×2 (09:00→21:24)
[2019-10-29] MEDS: HYDROGEN PEROXIDE 480 ML BOTTLE TP SCH ×2 (11:49→21:13)
[2019-10-29] MEDS: GLUCERNA 1.2 1,000 ML BOTTLE NG PRN (16:46)
[2019-10-29 17:32] LABS: BASOPHILS # (AUTO) 0.1 /CMM (0.0-0.2); EOSINOPHILS % (AUTO) 5.5 % (0.0-6.0); HEMATOCRIT 25 % (33-45); HEMOGLOBIN 8.4 g/dL (11.5-14.8); LYMPHOCYTES # (AUTO) 1.7 /CMM (0.8-4.8); LYMPHOCYTES % (AUTO) 15.6 % (20.0-44.0); MEAN CORPUSCULAR HGB CONC 33 g/dl (31.0-36.0); MEAN CORPUSCULAR VOLUME 95 fL (82-100); MONOCYTES # (AUTO) 0.8 /CMM (0.1-1.30); MONOCYTES % (AUTO) 7.7 % (2.0-12.0); NEUTROPHILS # (AUTO) 7.7 /CMM (1.8-8.9); NEUTROPHILS % (AUTO) 70.2 % (43.0-81.0); PLATELET COUNT (AUTO) 581 /CMM (150-450); RED BLOOD CELL COUNT(AUTO) 2.66 MIL/uL (4.0-5.2); WHITE BLOOD COUNT (AUTO) 10.9 K/uL (4.3-11.0)
[2019-10-29 17:43] LABS: CALCIUM, SERUM 10.5 mg/dL (8.5-10.1); CREATININE 3.1 mg/dL (0.6-1.3); MAGNESIUM 2.6 mg/dL (1.8-2.4); PHOSPHORUS 5.7 mg/dL (2.5-4.9); POTASSIUM 4.1 mmol/L (3.5-5.1)
[2019-10-29 20:31] VITALS: BP 145/78
[2019-10-29] MEDS: ASCORBIC ACID 500 MG TABLET GT SCH (21:24)
[2019-10-29] MEDS: INSULIN GLARGINE, 100 UNIT/ML CARTRIDGE SQ SCH (21:25)
[2019-10-30] MEDS: GABAPENTIN 300 MG CAPSULE GT SCH ×3 (05:45→21:00)
[2019-10-30] MEDS: OMEPRAZOLE 20 MG CAPSULE.DR GT SCH (05:45)
[2019-10-30] MEDS: METOCLOPRAMIDE HCL 10 MG/10 ML UDC GT SCH ×3 (05:45→17:39)
[2019-10-30] MEDS: HEPARIN SODIUM, PORCINE 5000 UNITS/1 ML VIAL SQ SCH (05:46)
[2019-10-30] MEDS: LORAZEPAM 0.5 MG TABLET GT PRN ×2 (07:32→11:32)
[2019-10-30 07:41] VITALS: BP 141/69
[2019-10-30] MEDS: LEVETIRACETAM SOL (5 ML) 100 MG/ML UDC GT SCH (08:29)
[2019-10-30] MEDS: ACIDOPHILUS/BULGARICUS 1 EACH TAB.CHEW GT SCH ×2 (08:29→17:39)
[2019-10-30] MEDS: DOCUSATE SODIUM LIQ 100 MG/10 ML UDC GT SCH (08:29)
[2019-10-30] MEDS: FERROUS SULFATE UDC 300 MG/5 ML UDC GT SCH ×2 (08:29→21:00)
[2019-10-30] MEDS: SIMETHICONE SUSP 40 MG/0.6 ML BOTTLE GT SCH ×2 (08:30→21:00)
[2019-10-30] MEDS: MULTIVIT W/MINERALS 1 TAB TABLET GT SCH (08:32)
[2019-10-30] MEDS: SENNOSIDES 8.6 MG TABLET GT SCH ×2 (08:32→21:00)
[2019-10-30] MEDS: OXCARBAZEPINE 150 MG TABLET GT SCH ×2 (08:33→21:00)
[2019-10-30] MEDS: BLOOD SUGAR DIAGNOSTIC 1 EACH STRIP IN SCH ×2 (08:42→21:30)
[2019-10-30] MEDS: INSULIN REGULAR, HUMAN 100 UNIT/ML 3 ML VIAL SQ PRN (08:43)
[2019-10-30] MEDS: HYDROGEN PEROXIDE 480 ML BOTTLE TP SCH ×2 (09:00→19:56)
[2019-10-30 11:30] VITALS: BP 105/82
[2019-10-30 12:30] VITALS: BP 102/65
--- NOTE | 2019-10-30 12:30 | NUR ---
Patient is with eyes open, responsive to verbal and tactile stimuli. Trach with vent working at prescribed settings. Gt in place patent no residual. Tolerating gt formula well. HOB elevated aspiration precautions maintained. Total care provided. Ativan given times two for episodes of twitching, seizure activity. Ativan given at 0732 am and at 1132 am. Noted with abdomen distended, soft bowel sounds present to all four quadrants of abdomen. Active. Noted with bladder distension and no output from maher catheter. Maher catheter changed as ordered secondary with blockage. Patient noted to void clear urine in moderate amount in brief after maher removed. Noted with and output of 350 after the new maher catheter inserted. Noted with minimal hematuria. RN supervisor epoxy fabrication notified. Episode of elevated temperature. On cooling measures. Nephrostomy tube with clean dressing draining clear urine. Central line in right femoral area with clean dressing. All medications given as ordered. Kept clean and comfortable.
[2019-10-30 14:51] VITALS: BP 133/70
--- NOTE | 2019-10-30 15:00 | NUR ---
Notified Dr. Luis patient's F/C with hematuria, gave an order to hold Heparin. He said hematuria is likely due to urinary retention. Update resident's sister Beckie of patient's condition including the medications given, episode of seizure and that patient has hematuria and Heparin on hold. When asked if she has spoken with Dr. Luis. She said that she didn't. Although there are instances that MD said that he had called her and left a message, will remind Dr. Luis again.
--- NOTE | 2019-10-30 17:47 | NUR ---
Relayed KUB result to Dr. Luis, "gaseous distension of small bowel concerning for bowel obstruction". Awaiting for orders.
[2019-10-30 18:18] VITALS: BP 132/80
[2019-10-30] MEDS: ONDANSETRON 4 MG TAB.RAPDIS GT PRN (18:22)
--- NOTE | 2019-10-30 18:47 | NUR ---
Patient is awake. Responsive to verbal and tactile stimuli. Noted with large amount of emesis yellow undigested formula. HOB elevated. Suctioned as needed. RN and RT notified. Zofran given as ordered. No s/s of aspiration noted. Kept clean and comfortable. Bourgeois catheter continues with light hematuria. Kept turned and repositioned. GT feeding on hold.
--- NOTE | 2019-10-30 18:50 | NUR ---
Received an order from Dr. Luis to place patient NPO including meds and change Reglan, Keppra, Sofran and Ativan from GT administration to IV. He also ordered to place NGT to LIS, SBFT in AM and surgical eval. Patient to start also on IVF, NS at 80 cc/hr. Left a message to Dr. Romero, division plant engineer surgeon for today. Orders carried out. Spoke with Beckie informing her of the KUB result showing bowel obstruction, with above orders from Dr. Luis. When asked if Dr. Luis had called her since MD said to this nurse that he had "called her again and left message again". Beckie said that there is one phone call that she did not answer because it indicates "No caller ID'', She admitted that she do not answer calls that is not known to her. It was explained to Beckie that there is a surgical consult but still waiting for MD's response. She said that she will call CN in AM to get more information. Endorsed.
--- NOTE | 2019-10-30 18:52 | NUR ---
Patient with no further episodes of twitching or episode of seizure activity. No further episodes of N/V. No further episodes of elevated temperature. All medications given as ordered. Abdomen is soft and distended. RN notified.
[2019-10-30] MEDS ORDERED: ONDANSETRON HCL/PF 4 MG/2 ML VIAL IVP PRN (19:30)
[2019-10-30] MEDS: IV NS 0.9% 1,000 ML IV PRN (19:30)
[2019-10-30] MEDS ORDERED: LORAZEPAM INJ 2 MG/ML VIAL IVP PRN (19:30)
--- NOTE | 2019-10-30 19:45 | NUR ---
RN NOTES Placed NGT to low intermittent suction. IV NS at 80ml/hr started. Pt on NPO including meds as ordered. No episodes of seizures noted at this time. Will continue to monitor.
[2019-10-30 19:53] VITALS: BP 115/67
[2019-10-30] MEDS: KEPPRA 1000 MG in IV NS 100 ML IV SCH (21:00)
[2019-10-30] MEDS: ASCORBIC ACID 500 MG TABLET GT SCH (21:00)
[2019-10-30] MEDS: INSULIN GLARGINE, 100 UNIT/ML CARTRIDGE SQ SCH (21:30)
[2019-10-31] MEDS: GABAPENTIN 300 MG CAPSULE GT SCH ×3 (05:00→21:00)
[2019-10-31] MEDS: METOCLOPRAMIDE HCL 10 MG/2 ML VIAL IV SCH ×5 (05:43→18:28)
[2019-10-31] MEDS: OMEPRAZOLE 20 MG CAPSULE.DR GT SCH (05:43)
[2019-10-31 08:23] VITALS: BP 151/57
[2019-10-31] MEDS ORDERED: DIATR MEGLU/DIATRIZOATE SODIUM 120 ML BOTTLE (GASTROGRAPHIN) ONE (08:48)
[2019-10-31] MEDS: KEPPRA 1000 MG in IV NS 100 ML IV SCH ×2 (09:00→21:00)
[2019-10-31] MEDS: DOCUSATE SODIUM LIQ 100 MG/10 ML UDC GT SCH (09:00)
[2019-10-31] MEDS: HYDROGEN PEROXIDE 480 ML BOTTLE TP SCH ×2 (09:00→21:00)
[2019-10-31] MEDS: FERROUS SULFATE UDC 300 MG/5 ML UDC GT SCH ×2 (09:00→21:00)
[2019-10-31] MEDS: BLOOD SUGAR DIAGNOSTIC 1 EACH STRIP IN SCH ×2 (09:00→21:28)
[2019-10-31] MEDS: MULTIVIT W/MINERALS 1 TAB TABLET GT SCH (09:00)
[2019-10-31] MEDS: OXCARBAZEPINE 150 MG TABLET GT SCH ×2 (09:00→21:00)
[2019-10-31] MEDS: SENNOSIDES 8.6 MG TABLET GT SCH ×2 (09:00→21:00)
[2019-10-31] MEDS: ACIDOPHILUS/BULGARICUS 1 EACH TAB.CHEW GT SCH ×2 (09:00→17:00)
[2019-10-31] MEDS: SIMETHICONE SUSP 40 MG/0.6 ML BOTTLE GT SCH ×2 (09:00→21:00)
[2019-10-31] MEDS: IV NS 0.9% 1,000 ML IV PRN (11:20)
[2019-10-31] MEDS: INSULIN REGULAR, HUMAN 100 UNIT/ML 3 ML VIAL SQ PRN (11:32)
[2019-10-31] MEDS: EPOETIN ALFA (4000 UNIT) 4,000 UNIT/ML VIAL SQ SCH (15:00)
--- NOTE | 2019-10-31 16:05 | NUR ---
Notified Dr Luis that Hgb 7.0 Hct 22. Also notified him that small bowel follow through result is still pending. He asked if pt still vomited. Informed him that pt has not vomited since yesterday. No new order at this time. Pt will receive Epogen today.
[2019-10-31 19:50] VITALS: BP 122/73
[2019-10-31] MEDS: ASCORBIC ACID 500 MG TABLET GT SCH (21:00)
[2019-10-31] MEDS: INSULIN GLARGINE, 100 UNIT/ML CARTRIDGE SQ SCH (21:30)
[2019-11-01] MEDS: GABAPENTIN 300 MG CAPSULE GT SCH ×3 (05:00→21:00)
[2019-11-01] MEDS: OMEPRAZOLE 20 MG CAPSULE.DR GT SCH (05:55)
[2019-11-01] MEDS: METOCLOPRAMIDE HCL 10 MG/2 ML VIAL IV SCH ×4 (06:24→18:18)
[2019-11-01 07:21] VITALS: BP 116/69
[2019-11-01 07:33] LABS: THYROID STIMULATING HORMONE 3.298 uIU/mL (0.358-3.74); URIC ACID 7.9 mg/dL (2.6-7.2)
[2019-11-01 07:36] LABS: CALCIUM, SERUM 10.2 mg/dL (8.5-10.1); CREATININE 3.7 mg/dL (0.6-1.3); MAGNESIUM 2.9 mg/dL (1.8-2.4); POTASSIUM 3.7 mmol/L (3.5-5.1)
[2019-11-01 08:17] LABS: URINE SODIUM, RANDOM 125 mmol/l (40-220)
[2019-11-01] MEDS: ACIDOPHILUS/BULGARICUS 1 EACH TAB.CHEW GT SCH ×2 (09:00→17:00)
[2019-11-01] MEDS: SENNOSIDES 8.6 MG TABLET GT SCH ×2 (09:00→21:00)
[2019-11-01] MEDS: MULTIVIT W/MINERALS 1 TAB TABLET GT SCH (09:00)
[2019-11-01] MEDS: SIMETHICONE SUSP 40 MG/0.6 ML BOTTLE GT SCH ×2 (09:00→21:00)
[2019-11-01] MEDS: DOCUSATE SODIUM LIQ 100 MG/10 ML UDC GT SCH (09:00)
[2019-11-01] MEDS: FERROUS SULFATE UDC 300 MG/5 ML UDC GT SCH ×2 (09:00→21:00)
[2019-11-01] MEDS: OXCARBAZEPINE 150 MG TABLET GT SCH ×2 (09:00→21:00)
[2019-11-01] MEDS: HYDROGEN PEROXIDE 480 ML BOTTLE TP SCH ×2 (09:00→21:00)
[2019-11-01] MEDS: KEPPRA 1000 MG in IV NS 100 ML IV SCH ×2 (09:10→21:00)
[2019-11-01] MEDS: BLOOD SUGAR DIAGNOSTIC 1 EACH STRIP IN SCH ×2 (09:25→21:05)
[2019-11-01] MEDS: INSULIN REGULAR, HUMAN 100 UNIT/ML 3 ML VIAL SQ PRN (09:26)
[2019-11-01 10:04] LABS: OSMOLALITY,URINE 289 mOS/kg (340-1090)
--- NOTE | 2019-11-01 10:27 | NUR ---
Relayed small bowel follow through result to Dr Luis and Dr Romero.
--- NOTE | 2019-11-01 13:20 | NUR ---
Notified Dr Luis that Dr Romero has not yet replied. He said to continue NPO and IV fluids, call NAN Jacobs (Dr Romero's SURVEY WORKERS SUPERVISOR) and have Dr Montgomery follow up. Informed NAN Munoz of small bowel follow through result and request for surgical consult. Informed Dr Luis that Dr Romero is production floater for surgery today, not Dr Montgomery, and Dr Martines is production floater for GI. Called Dr Martines's office but unable to reach him. NAN Munoz said she will see pt today.
--- NOTE | 2019-11-01 16:50 | NUR ---
Left message for infection control nurse Didi regarding urine culture result, no ESBL in urine.
--- NOTE | 2019-11-01 18:25 | NUR ---
Seen by NAN Munoz (PLYWOOD STOCK GRADER of Dr Romero -surgical consult). She is aware of small bowel follow through result. She said pt does not have an obstruction. She ordered KUB in AM, DC NGT, resume GT feeding Glucerna 1.2 at 20 mL/hr and increase by 5 mL q 4 hours as tolerated until goal of 65 mL/hr is reached. Notified Beckie. Addendum: 11/01/19 at 1828 by SARITA GOMEZ RN She also ordered to DC low intermittent suction via NGT.
[2019-11-01] MEDS: IV NS 0.9% 1,000 ML IV PRN (18:40)
[2019-11-01 19:59] VITALS: BP 116/65
[2019-11-01] MEDS: ASCORBIC ACID 500 MG TABLET GT SCH (21:00)
[2019-11-01] MEDS: INSULIN GLARGINE, 100 UNIT/ML CARTRIDGE SQ SCH (21:06)
[2019-11-02] MEDS: GABAPENTIN 300 MG CAPSULE GT SCH ×3 (05:00→21:54)
[2019-11-02] MEDS: OMEPRAZOLE 20 MG CAPSULE.DR GT SCH (05:09)
[2019-11-02] MEDS: METOCLOPRAMIDE HCL 10 MG/2 ML VIAL IV SCH ×3 (06:00→13:45)
[2019-11-02 07:30] VITALS: BP 127/73
--- NOTE | 2019-11-02 08:42 | NUR ---
PT RECEIVED ON CURRENT SETTINGS WITH NO SIGNS OF RESPIRATORY DISTRESS NOTED. AIRWAY IS PATENT AND SECURE. VENT IS PLUGGED INTO RED OUTLET WITH ALARMS ON AND AUDIBLE. SUCTION PT PRN. WILL CONTINUE TO MONITOR THROUGHOUT SHIFT. Addendum: 11/02/19 at 0842 by KEVIN ZARAGOZA RT Amended: Links added.
[2019-11-02] MEDS: FERROUS SULFATE UDC 300 MG/5 ML UDC GT SCH ×2 (09:00→21:54)
[2019-11-02] MEDS: MULTIVIT W/MINERALS 1 TAB TABLET GT SCH (09:00)
[2019-11-02] MEDS: OXCARBAZEPINE 150 MG TABLET GT SCH ×2 (09:00→21:54)
[2019-11-02] MEDS: SIMETHICONE SUSP 40 MG/0.6 ML BOTTLE GT SCH ×2 (09:00→21:54)
[2019-11-02] MEDS: DOCUSATE SODIUM LIQ 100 MG/10 ML UDC GT SCH (09:00)
[2019-11-02] MEDS: ACIDOPHILUS/BULGARICUS 1 EACH TAB.CHEW GT SCH ×2 (09:00→17:38)
[2019-11-02] MEDS: HYDROGEN PEROXIDE 480 ML BOTTLE TP SCH ×2 (09:17→21:35)
[2019-11-02] MEDS: SENNOSIDES 8.6 MG TABLET GT SCH ×2 (09:50→21:54)
[2019-11-02] MEDS: BLOOD SUGAR DIAGNOSTIC 1 EACH STRIP IN SCH ×2 (09:51→21:57)
[2019-11-02] MEDS: INSULIN REGULAR, HUMAN 100 UNIT/ML 3 ML VIAL SQ PRN ×2 (09:52→21:57)
[2019-11-02] MEDS: KEPPRA 1000 MG in IV NS 100 ML IV SCH (10:04)
--- NOTE | 2019-11-02 12:10 | NUR ---
Relayed KUB result to NAN Munoz with order to resume all routine medication via GT and change IV medication including Keppra and Reglan to GT. GT feeding rate increased slowly, at this time is at 35 cc/hr. well tolerated. No nausea vomiting, no gastric residual. Orders carried out.
--- NOTE | 2019-11-02 14:05 | NUR ---
Family Check-In: This SW called the patient's sister/conservator, Beckie Chu [phone] to check-in with her. However, the call went to voicemail and SW left call back number. SW will follow up.
[2019-11-02] MEDS: IV NS 0.9% 1,000 ML IV PRN (14:41)
--- NOTE | 2019-11-02 15:06 | NUR ---
Facility Protocols: Per Director's request, this SW called the patient's sister/DPOA, Beckie Chu [phone] to update her regarding the facility's protocols pertaining to the ongoing COVID-19 pandemic. SW informed the family that essential infection control practices continue to be updated and implemented in our facility. SW informed the family that the visitation restrictions will remain in place until otherwise stated by The Department of Public Health. SW reminded Beckie of alternative means of communication including Zoom video calls, calling our facility and [employer]. Beckie expressed understanding and declined initiating [employer] for the pt. and stated she will reach when she is available to do Zoom video calls. Family will be updated if any changes occur.
--- NOTE | 2019-11-02 15:25 | NUR ---
[facility] [employer] [facility]: SW called the the patient's sister/conservator, Beckie Chu [phone] to follow up regarding her and the pt.'s family's decision regarding initiating [facility] for their pt. Beckie stated, "Me and my family have decided to opt out of using [facility]". SW respected the family's self-determination. SW informed Beckie that if she ever decides otherwise, [facility] can be started for the pt. Beckie expressed understanding and was agreeable to plan. Beckie stated that she is regularly updated by charge nurses and will reach put to SW if she is interested in Zoom video calls. Noted.
[2019-11-02] MEDS: METOCLOPRAMIDE HCL 10 MG/10 ML UDC GT SCH (17:38)
--- NOTE | 2019-11-02 18:35 | NUR ---
Referred urine culture result to NAN Loredo. Upon reviewing culture result, new order given to DC contact isolation ESBL urine with ATB order Augmentin 250 mg. Q 12 hours x 7 days (UTI). Resident's sister Beckie made Addendum: 11/02/19 at 1953 by TAMMY FLEMING RN Patient's sister Beckie notified of new order.
--- NOTE | 2019-11-02 19:11 | NUR ---
RT NOTE PT RECEIVED TRACHED ON MECHANICAL VENTILATION. CUFF CHECKED VIA OIL GAUGER. SX DONE, TRACH SECURED AND PATENT. ALARMS ON AND AUDIBLE. NO DISTRESS NOTED. WILL CONTINUE TO MONITOR T/O SHIFT. CONT. PULSE OX CONNECTED. Addendum: 11/02/19 at 1910 by BRIEN NEAL RT Amended: Links added.
[2019-11-02 20:39] VITALS: BP 138/69
[2019-11-02] MEDS: AMOX/CLAVULANATE 250 MG TABLET PO SCH (21:54)
[2019-11-02] MEDS: LEVETIRACETAM SOL (5 ML) 100 MG/ML UDC GT SCH (21:54)
[2019-11-02] MEDS: ASCORBIC ACID 500 MG TABLET GT SCH (21:54)
[2019-11-02] MEDS: INSULIN GLARGINE, 100 UNIT/ML CARTRIDGE SQ SCH (22:02)
[2019-11-03] MEDS: METOCLOPRAMIDE HCL 10 MG/10 ML UDC GT SCH ×4 (00:10→17:56)
[2019-11-03] MEDS: IV NS 0.9% 1,000 ML IV PRN (03:02)
[2019-11-03] MEDS: OMEPRAZOLE 20 MG CAPSULE.DR GT SCH (05:48)
[2019-11-03] MEDS: GABAPENTIN 300 MG CAPSULE GT SCH ×3 (05:48→21:46)
[2019-11-03] MEDS: GLUCERNA 1.2 1,000 ML BOTTLE NG PRN (06:02)
[2019-11-03 07:43] LABS: HEMOGLOBIN 6.8 g/dL (11.5-14.8)
[2019-11-03 08:12] VITALS: BP 141/79
--- NOTE | 2019-11-03 08:19 | NUR ---
Notified Dr Luis that pt's Hgb 6.8 Hct 21. Pt tolerating GT feeding at this time, no vomiting, no seizures. Dr Luis ordered to transfuse 1 unit of PRBC.
[2019-11-03] MEDS: FERROUS SULFATE UDC 300 MG/5 ML UDC GT SCH ×2 (09:00→21:46)
[2019-11-03] MEDS: OXCARBAZEPINE 150 MG TABLET GT SCH ×2 (09:00→21:46)
[2019-11-03] MEDS: SIMETHICONE SUSP 40 MG/0.6 ML BOTTLE GT SCH ×2 (09:00→21:46)
[2019-11-03] MEDS: BLOOD SUGAR DIAGNOSTIC 1 EACH STRIP IN SCH ×2 (09:00→21:46)
[2019-11-03] MEDS: MULTIVIT W/MINERALS 1 TAB TABLET GT SCH (09:00)
[2019-11-03] MEDS: LEVETIRACETAM SOL (5 ML) 100 MG/ML UDC GT SCH ×2 (09:00→21:46)
[2019-11-03] MEDS: ACIDOPHILUS/BULGARICUS 1 EACH TAB.CHEW GT SCH ×2 (09:00→17:56)
[2019-11-03] MEDS: SENNOSIDES 8.6 MG TABLET GT SCH ×2 (09:00→21:46)
[2019-11-03] MEDS: DOCUSATE SODIUM LIQ 100 MG/10 ML UDC GT SCH (09:00)
[2019-11-03] MEDS: AMOX/CLAVULANATE 250 MG TABLET PO SCH ×2 (09:00→21:46)
[2019-11-03] MEDS: Z GUARD REMEDY 2 OZ OINT TP SCH ×2 (09:00→21:46)
[2019-11-03] MEDS: HYDROGEN PEROXIDE 480 ML BOTTLE TP SCH ×2 (09:26→20:01)
--- NOTE | 2019-11-03 11:25 | NUR ---
Notified Dr Luis that pt is tolerating GT feeding, no more vomiting, pt still on IV fluids and GT flushes of NS, NA 139 BUN 61 Cr 3.7 (11/01/19 labs). Asked him if he still wanted GI to see pt. He said there is no need for GI consult.
[2019-11-03 12:39] VITALS: BP 145/65
--- NOTE | 2019-11-03 12:39 | NUR ---
Started transfusing 1 unit of PRBC. Pt awake, no distress noted, appears comfortable. T 98.8 F BP 145/65 HR 87 R 18 O2 sat 97-100%.
[2019-11-03 12:55] VITALS: BP 144/69
--- NOTE | 2019-11-03 13:00 | NUR ---
Pt tolerating blood transfusion well. No adverse reaction noted.
[2019-11-03 14:46] VITALS: BP 141/79
[2019-11-03] MEDS: EPOETIN ALFA (4000 UNIT) 4,000 UNIT/ML VIAL SQ SCH (14:49)
--- NOTE | 2019-11-03 15:02 | NUR ---
RT NOTE: PATIENT RECEIVED TRACHED ON MECHANICAL VENT. ALARMS VERIFIED AND AUDIBLE. VENT PLUGGED INTO RED OUTLET. AMBU BAG AND NEW TRACH AT [facility].
[2019-11-03 15:30] VITALS: BP 142/69
--- NOTE | 2019-11-03 15:30 | NUR ---
Transfused 1 unit of PRBC (313 mL). No adverse reactions noted to blood transfusion. BP 142/69 HR 74 T 98.1 F R 16 O2 sat 100%.
--- NOTE | 2019-11-03 18:53 | NUR ---
Seen by Dr Luis. Received order to DC NS at 80 mL/hr IV. Pt tolerating GT feeding well.
[2019-11-03 19:47] VITALS: BP 124/58
--- NOTE | 2019-11-03 20:05 | NUR ---
RT NOTE PT RECEIVED TRACHED ON MECHANICAL VENTILATION. CUFF CHECKED VIA AUTOMATIC OVEN OPERATOR. SX DONE, TRACH SECURED AND PATENT. ALARMS ON AND AUDIBLE. NO DISTRESS NOTED. WILL CONTINUE TO MONITOR T/O SHIFT. CONT. PULSE OX CONNECTED. Addendum: 11/03/19 at 2006 by BRIEN NEAL RT Amended: Links added.
[2019-11-03] MEDS: ASCORBIC ACID 500 MG TABLET GT SCH (21:46)
[2019-11-03] MEDS: INSULIN GLARGINE, 100 UNIT/ML CARTRIDGE SQ SCH (21:47)
[2019-11-03] MEDS: INSULIN REGULAR, HUMAN 100 UNIT/ML 3 ML VIAL SQ PRN (21:48)
[2019-11-04] MEDS: METOCLOPRAMIDE HCL 10 MG/10 ML UDC GT SCH ×5 (00:32→23:46)
[2019-11-04] MEDS: GABAPENTIN 300 MG CAPSULE GT SCH ×3 (05:39→20:55)
[2019-11-04] MEDS: OMEPRAZOLE 20 MG CAPSULE.DR GT SCH (05:39)
[2019-11-04] MEDS: GLUCERNA 1.2 1,000 ML BOTTLE NG PRN ×2 (05:39→21:09)
[2019-11-04 06:37] LABS: HEMOGLOBIN 8.6 g/dL (11.5-14.8)
--- NOTE | 2019-11-04 06:57 | NUR ---
Patient tolerating GT feeding 65ml/hr. Patient stable during the night.
[2019-11-04 07:32] VITALS: BP 128/62
[2019-11-04] MEDS: SIMETHICONE SUSP 40 MG/0.6 ML BOTTLE GT SCH ×2 (09:00→20:55)
[2019-11-04] MEDS: AMOX/CLAVULANATE 250 MG TABLET PO SCH ×2 (09:00→20:55)
[2019-11-04] MEDS: MULTIVIT W/MINERALS 1 TAB TABLET GT SCH (09:00)
[2019-11-04] MEDS: ACIDOPHILUS/BULGARICUS 1 EACH TAB.CHEW GT SCH ×2 (09:00→17:01)
[2019-11-04] MEDS: SENNOSIDES 8.6 MG TABLET GT SCH ×2 (09:00→20:55)
[2019-11-04] MEDS: OXCARBAZEPINE 150 MG TABLET GT SCH ×2 (09:00→20:55)
[2019-11-04] MEDS: FERROUS SULFATE UDC 300 MG/5 ML UDC GT SCH ×2 (09:00→20:55)
[2019-11-04] MEDS: Z GUARD REMEDY 2 OZ OINT TP SCH ×2 (09:00→20:56)
[2019-11-04] MEDS: BLOOD SUGAR DIAGNOSTIC 1 EACH STRIP IN SCH ×2 (09:00→21:08)
[2019-11-04] MEDS: DOCUSATE SODIUM LIQ 100 MG/10 ML UDC GT SCH (09:00)
[2019-11-04] MEDS: LEVETIRACETAM SOL (5 ML) 100 MG/ML UDC GT SCH ×2 (09:00→20:55)
[2019-11-04] MEDS: HYDROGEN PEROXIDE 480 ML BOTTLE TP SCH ×2 (10:04→20:53)
--- NOTE | 2019-11-04 12:30 | NUR ---
Seen and examined by HAND QUILTER Anna Vargas, resident's F/C draining yellow urine no hematuria, Heparin resumed. She was also made aware that at this time patient is getting GT flush of noramal saline 100 ml Q 6 hours. She gave an order to check BMP on Thursday and will decide based on the labs whether to resume GT water flushing or to keep NS flushing through the GT.
--- NOTE | 2019-11-04 15:06 | NUR ---
RT NOTE: PATIENT RECEIVED TRACHED ON MECHANICAL VENT. ALARMS VERIFIED AND AUDIBLE. VENT PLUGGED INTO RED OUTLET. AMBU BAG AT [facility].
--- NOTE | 2019-11-04 16:46 | NUR ---
Informed resident's sister Beckie that patient's Heparin is resumed and will do a Covid-19 test on her for surveillance. Appreciated the call. Resident had a shower in the shower room. Terminal cleaning of the room done. Patient's isolation discontinued.
--- NOTE | 2019-11-04 19:39 | NUR ---
RT NOTE PT RECEIVED TRACHED ON MECHANICAL VENTILATION. CUFF CHECKED VIA BLUEPRINT REPRODUCER. SX DONE, TRACH SECURED AND PATENT. ALARMS ON AND AUDIBLE. NO DISTRESS NOTED. WILL CONTINUE TO MONITOR T/O SHIFT. CONT. PULSE OX CONNECTED. Addendum: 11/04/19 at 1940 by BRIEN NEAL RT Amended: Links added.
[2019-11-04 20:04] VITALS: BP 139/71
[2019-11-04] MEDS: ASCORBIC ACID 500 MG TABLET GT SCH (20:55)
[2019-11-04] MEDS: HEPARIN SODIUM, PORCINE 5000 UNITS/1 ML VIAL SQ SCH (20:55)
[2019-11-04] MEDS: INSULIN GLARGINE, 100 UNIT/ML CARTRIDGE SQ SCH (21:09)
[2019-11-04] MEDS: INSULIN REGULAR, HUMAN 100 UNIT/ML 3 ML VIAL SQ PRN (21:09)
[2019-11-05] MEDS: METOCLOPRAMIDE HCL 10 MG/10 ML UDC GT SCH ×4 (05:16→23:31)
[2019-11-05] MEDS: GABAPENTIN 300 MG CAPSULE GT SCH ×3 (05:16→21:23)
[2019-11-05] MEDS: OMEPRAZOLE 20 MG CAPSULE.DR GT SCH (05:16)
[2019-11-05 07:12] LABS: BASOPHILS # (AUTO) 0.1 /CMM (0.0-0.2); BASOPHILS % (AUTO) 0.6 % (0.0-2.0); EOSINOPHILS % (AUTO) 5.3 % (0.0-6.0); HEMATOCRIT 24 % (33-45); HEMOGLOBIN 8.1 g/dL (11.5-14.8); LYMPHOCYTES # (AUTO) 1.8 /CMM (0.8-4.8); LYMPHOCYTES % (AUTO) 14.8 % (20.0-44.0); MEAN CORPUSCULAR HGB CONC 34 g/dl (31.0-36.0); MEAN CORPUSCULAR VOLUME 97 fL (82-100); MONOCYTES % (AUTO) 8.4 % (2.0-12.0); NEUTROPHILS # (AUTO) 8.5 /CMM (1.8-8.9); NEUTROPHILS % (AUTO) 70.9 % (43.0-81.0); PLATELET COUNT (AUTO) 447 /CMM (150-450)
[2019-11-05 07:25] LABS: BILIRUBIN,TOTAL 0.2 mg/dL (0.2-1.0); CALCIUM, SERUM 10.1 mg/dL (8.5-10.1); CREATININE 3.2 mg/dL (0.6-1.3); MAGNESIUM 2.1 mg/dL (1.8-2.4); PHOSPHORUS 4.1 mg/dL (2.5-4.9); POTASSIUM 3.9 mmol/L (3.5-5.1); TOTAL PROTEIN, SERUM 9.3 g/dL (6.4-8.2)
[2019-11-05 07:52] VITALS: BP 162/83
[2019-11-05] MEDS: BLOOD SUGAR DIAGNOSTIC 1 EACH STRIP IN SCH ×2 (09:00→21:23)
[2019-11-05] MEDS: HYDROGEN PEROXIDE 480 ML BOTTLE TP SCH ×2 (09:14→21:00)
[2019-11-05] MEDS: DOCUSATE SODIUM LIQ 100 MG/10 ML UDC GT SCH (09:28)
[2019-11-05] MEDS: FERROUS SULFATE UDC 300 MG/5 ML UDC GT SCH ×2 (09:29→21:23)
[2019-11-05] MEDS: ACIDOPHILUS/BULGARICUS 1 EACH TAB.CHEW GT SCH ×2 (09:29→17:42)
[2019-11-05] MEDS: LEVETIRACETAM SOL (5 ML) 100 MG/ML UDC GT SCH ×2 (09:29→21:23)
[2019-11-05] MEDS: OXCARBAZEPINE 150 MG TABLET GT SCH ×2 (09:30→21:23)
[2019-11-05] MEDS: SENNOSIDES 8.6 MG TABLET GT SCH ×2 (09:30→21:23)
[2019-11-05] MEDS: SIMETHICONE SUSP 40 MG/0.6 ML BOTTLE GT SCH ×2 (09:30→21:23)
[2019-11-05] MEDS: MULTIVIT W/MINERALS 1 TAB TABLET GT SCH (09:30)
[2019-11-05] MEDS: AMOX/CLAVULANATE 250 MG TABLET PO SCH ×2 (09:31→21:23)
[2019-11-05] MEDS: Z GUARD REMEDY 2 OZ OINT TP SCH ×2 (09:32→21:24)
[2019-11-05] MEDS: HEPARIN SODIUM, PORCINE 5000 UNITS/1 ML VIAL SQ SCH ×2 (09:33→21:24)
[2019-11-05] MEDS: INSULIN REGULAR, HUMAN 100 UNIT/ML 3 ML VIAL SQ PRN (09:42)
[2019-11-05] MEDS: GLUCERNA 1.2 1,000 ML BOTTLE NG PRN (17:58)
[2019-11-05 20:40] VITALS: BP 145/75
[2019-11-05] MEDS: ASCORBIC ACID 500 MG TABLET GT SCH (21:23)
[2019-11-05] MEDS: INSULIN GLARGINE, 100 UNIT/ML CARTRIDGE SQ SCH (21:24)
[2019-11-06] MEDS: GABAPENTIN 300 MG CAPSULE GT SCH ×3 (05:41→20:12)
[2019-11-06] MEDS: OMEPRAZOLE 20 MG CAPSULE.DR GT SCH (05:41)
[2019-11-06] MEDS: METOCLOPRAMIDE HCL 10 MG/10 ML UDC GT SCH ×4 (05:41→23:05)
[2019-11-06 07:53] VITALS: BP 151/87
[2019-11-06] MEDS: DOCUSATE SODIUM LIQ 100 MG/10 ML UDC GT SCH (08:52)
[2019-11-06] MEDS: LEVETIRACETAM SOL (5 ML) 100 MG/ML UDC GT SCH ×2 (08:52→20:12)
[2019-11-06] MEDS: FERROUS SULFATE UDC 300 MG/5 ML UDC GT SCH ×2 (08:52→20:12)
[2019-11-06] MEDS: MULTIVIT W/MINERALS 1 TAB TABLET GT SCH (08:53)
[2019-11-06] MEDS: ACIDOPHILUS/BULGARICUS 1 EACH TAB.CHEW GT SCH ×2 (08:53→16:37)
[2019-11-06] MEDS: SIMETHICONE SUSP 40 MG/0.6 ML BOTTLE GT SCH ×2 (08:53→20:12)
[2019-11-06] MEDS: SENNOSIDES 8.6 MG TABLET GT SCH ×2 (08:53→20:12)
[2019-11-06] MEDS: OXCARBAZEPINE 150 MG TABLET GT SCH ×2 (08:54→20:12)
[2019-11-06] MEDS: BLOOD SUGAR DIAGNOSTIC 1 EACH STRIP IN SCH ×2 (08:54→20:58)
[2019-11-06] MEDS: AMOX/CLAVULANATE 250 MG TABLET PO SCH ×2 (08:54→20:15)
[2019-11-06] MEDS: HEPARIN SODIUM, PORCINE 5000 UNITS/1 ML VIAL SQ SCH ×2 (09:11→20:15)
[2019-11-06] MEDS: Z GUARD REMEDY 2 OZ OINT TP SCH ×2 (09:12→20:15)
[2019-11-06] MEDS: HYDROGEN PEROXIDE 480 ML BOTTLE TP SCH ×2 (09:52→21:00)
[2019-11-06] MEDS: GLUCERNA 1.2 1,000 ML BOTTLE NG PRN (12:10)
[2019-11-06] MEDS: ASCORBIC ACID 500 MG TABLET GT SCH (20:12)
[2019-11-06 20:13] VITALS: BP 142/70
[2019-11-06] MEDS: INSULIN REGULAR, HUMAN 100 UNIT/ML 3 ML VIAL SQ PRN (20:58)
[2019-11-06] MEDS: INSULIN GLARGINE, 100 UNIT/ML CARTRIDGE SQ SCH (22:01)
[2019-11-07] MEDS: METOCLOPRAMIDE HCL 10 MG/10 ML UDC GT SCH ×3 (05:02→17:38)
[2019-11-07] MEDS: OMEPRAZOLE 20 MG CAPSULE.DR GT SCH (05:02)
[2019-11-07] MEDS: GABAPENTIN 300 MG CAPSULE GT SCH ×3 (05:02→21:40)
[2019-11-07] MEDS: GLUCERNA 1.2 1,000 ML BOTTLE NG PRN (05:03)
[2019-11-07 06:44] LABS: HEMOGLOBIN 7.7 g/dL (11.5-14.8)
[2019-11-07 07:56] VITALS: BP 130/73
[2019-11-07] MEDS: ACIDOPHILUS/BULGARICUS 1 EACH TAB.CHEW GT SCH ×2 (09:00→17:38)
[2019-11-07] MEDS: BLOOD SUGAR DIAGNOSTIC 1 EACH STRIP IN SCH ×2 (09:00→21:41)
[2019-11-07] MEDS: DOCUSATE SODIUM LIQ 100 MG/10 ML UDC GT SCH (09:00)
[2019-11-07] MEDS: AMOX/CLAVULANATE 250 MG TABLET PO SCH ×2 (09:00→21:41)
[2019-11-07] MEDS: SENNOSIDES 8.6 MG TABLET GT SCH ×2 (09:00→21:40)
[2019-11-07] MEDS: Z GUARD REMEDY 2 OZ OINT TP SCH ×2 (09:00→21:42)
[2019-11-07] MEDS: SIMETHICONE SUSP 40 MG/0.6 ML BOTTLE GT SCH ×2 (09:00→21:40)
[2019-11-07] MEDS: FERROUS SULFATE UDC 300 MG/5 ML UDC GT SCH ×2 (09:00→21:40)
[2019-11-07] MEDS: MULTIVIT W/MINERALS 1 TAB TABLET GT SCH (09:00)
[2019-11-07] MEDS: HYDROGEN PEROXIDE 480 ML BOTTLE TP SCH ×2 (09:00→21:43)
[2019-11-07] MEDS: HEPARIN SODIUM, PORCINE 5000 UNITS/1 ML VIAL SQ SCH ×2 (09:00→21:41)
[2019-11-07] MEDS: LEVETIRACETAM SOL (5 ML) 100 MG/ML UDC GT SCH ×2 (09:00→21:40)
[2019-11-07] MEDS: OXCARBAZEPINE 150 MG TABLET GT SCH ×2 (09:00→21:40)
--- NOTE | 2019-11-07 11:00 | NUR ---
Dr Luis requested to ask Dr Kumar if pt's Epogen dose should be adjusted. Pt currently on Epogen 8000 units twice a week and having frequent blood transfusions. Dr Kumar said it is already a high dose, he will talk with Dr Luis about it. No new order.
[2019-11-07 11:53] LABS: CALCIUM, SERUM 9.8 mg/dL (8.5-10.1); CREATININE 3.4 mg/dL (0.6-1.3); POTASSIUM 4.5 mmol/L (3.5-5.1)
--- NOTE | 2019-11-07 13:20 | NUR ---
Seen by CREDENTIALING ANALYST Anna Vargas. Relayed BMP result to her. Received order to DC NS flushes via GT and change to water flushes of 100 mL q 6 hours.
[2019-11-07] MEDS: EPOETIN ALFA (4000 UNIT) 4,000 UNIT/ML VIAL SQ SCH (15:00)
--- NOTE | 2019-11-07 15:35 | NUR ---
Family Invitation to IDT: This SW called the patient's sister, Beckie Chu to invite her to participate in IDT via phone conference. Per Beckie, she does not have any questions for the doctor and is updated regarding the patient's condition. Per Beckie, she will nto be participating in IDT.
--- NOTE | 2019-11-07 18:05 | NUR ---
Informed Beckie that Covid-19 test is negative.
[2019-11-07] MEDS: MAGNESIUM HYDROXIDE 30 ML UDC GT PRN (19:02)
[2019-11-07 19:59] VITALS: BP 131/77
[2019-11-07] MEDS: ASCORBIC ACID 500 MG TABLET GT SCH (21:41)
[2019-11-07] MEDS: INSULIN GLARGINE, 100 UNIT/ML CARTRIDGE SQ SCH (21:42)
[2019-11-08] MEDS: METOCLOPRAMIDE HCL 10 MG/10 ML UDC GT SCH ×5 (00:11→23:16)
[2019-11-08] MEDS: OMEPRAZOLE 20 MG CAPSULE.DR GT SCH (05:09)
[2019-11-08] MEDS: GABAPENTIN 300 MG CAPSULE GT SCH ×3 (05:09→21:24)
[2019-11-08 07:25] VITALS: BP 116/45
[2019-11-08] MEDS: LEVETIRACETAM SOL (5 ML) 100 MG/ML UDC GT SCH ×2 (09:00→21:24)
[2019-11-08] MEDS: SIMETHICONE SUSP 40 MG/0.6 ML BOTTLE GT SCH ×2 (09:00→21:24)
[2019-11-08] MEDS: OXCARBAZEPINE 150 MG TABLET GT SCH ×2 (09:00→21:24)
[2019-11-08] MEDS: MULTIVIT W/MINERALS 1 TAB TABLET GT SCH (09:00)
[2019-11-08] MEDS: DOCUSATE SODIUM LIQ 100 MG/10 ML UDC GT SCH (09:00)
[2019-11-08] MEDS: BLOOD SUGAR DIAGNOSTIC 1 EACH STRIP IN SCH ×2 (09:00→21:51)
[2019-11-08] MEDS: SENNOSIDES 8.6 MG TABLET GT SCH ×2 (09:00→21:24)
[2019-11-08] MEDS: Z GUARD REMEDY 2 OZ OINT TP SCH ×2 (09:00→21:25)
[2019-11-08] MEDS: HEPARIN SODIUM, PORCINE 5000 UNITS/1 ML VIAL SQ SCH ×2 (09:00→21:25)
[2019-11-08] MEDS: AMOX/CLAVULANATE 250 MG TABLET PO SCH ×2 (09:00→21:24)
[2019-11-08] MEDS: ACIDOPHILUS/BULGARICUS 1 EACH TAB.CHEW GT SCH ×2 (09:00→17:00)
[2019-11-08] MEDS: FERROUS SULFATE UDC 300 MG/5 ML UDC GT SCH ×2 (09:00→21:24)
[2019-11-08] MEDS: HYDROGEN PEROXIDE 480 ML BOTTLE TP SCH ×2 (09:00→21:00)
[2019-11-08 20:15] VITALS: BP 121/75
[2019-11-08] MEDS: ASCORBIC ACID 500 MG TABLET GT SCH (21:24)
[2019-11-08] MEDS: INSULIN GLARGINE, 100 UNIT/ML CARTRIDGE SQ SCH (21:52)
[2019-11-08] MEDS: GLUCERNA 1.2 1,000 ML BOTTLE NG PRN (23:16)
[2019-11-09] MEDS: METOCLOPRAMIDE HCL 10 MG/10 ML UDC GT SCH ×4 (05:42→23:45)
[2019-11-09] MEDS: GABAPENTIN 300 MG CAPSULE GT SCH ×3 (05:42→21:33)
[2019-11-09] MEDS: OMEPRAZOLE 20 MG CAPSULE.DR GT SCH (05:42)
[2019-11-09 07:51] VITALS: BP 109/65
[2019-11-09] MEDS: LEVETIRACETAM SOL (5 ML) 100 MG/ML UDC GT SCH ×2 (08:34→21:33)
[2019-11-09] MEDS: SENNOSIDES 8.6 MG TABLET GT SCH ×2 (08:34→21:33)
[2019-11-09] MEDS: MULTIVIT W/MINERALS 1 TAB TABLET GT SCH (08:34)
[2019-11-09] MEDS: FERROUS SULFATE UDC 300 MG/5 ML UDC GT SCH ×2 (08:34→21:33)
[2019-11-09] MEDS: DOCUSATE SODIUM LIQ 100 MG/10 ML UDC GT SCH (08:34)
[2019-11-09] MEDS: OXCARBAZEPINE 150 MG TABLET GT SCH ×2 (08:34→21:33)
[2019-11-09] MEDS: SIMETHICONE SUSP 40 MG/0.6 ML BOTTLE GT SCH ×2 (08:34→21:33)
[2019-11-09] MEDS: ACIDOPHILUS/BULGARICUS 1 EACH TAB.CHEW GT SCH ×2 (08:34→17:40)
[2019-11-09] MEDS: BLOOD SUGAR DIAGNOSTIC 1 EACH STRIP IN SCH ×2 (08:34→21:33)
[2019-11-09] MEDS: AMOX/CLAVULANATE 250 MG TABLET PO SCH (08:41)
[2019-11-09] MEDS: HEPARIN SODIUM, PORCINE 5000 UNITS/1 ML VIAL SQ SCH ×2 (08:43→21:33)
[2019-11-09] MEDS: Z GUARD REMEDY 2 OZ OINT TP SCH ×2 (08:46→21:34)
[2019-11-09] MEDS: INSULIN REGULAR, HUMAN 100 UNIT/ML 3 ML VIAL SQ PRN ×2 (08:46→21:35)
[2019-11-09] MEDS: HYDROGEN PEROXIDE 480 ML BOTTLE TP SCH ×2 (09:16→20:19)
[2019-11-09] MEDS: GLUCERNA 1.2 1,000 ML BOTTLE NG PRN (17:40)
--- NOTE | 2019-11-09 20:19 | NUR ---
RT NOTE: RECEIVED TRACH PATIENT ON [facility] VENT WITH NOTED SETTINGS PER MD ORDERS. TRACH CARE DONE. TRACH IS PATENT AND SECURED. SX DONE PRN. ALARMS ARE ON AND AUDIBLE. VENT IS PLUGGED INTO RED OUTLET WITH AMBU BAG AT BEDSIDE. NO RESP DISTRESS NOTED AT THIS TIME. WILL CONT TO MONITOR PT. Addendum: 11/10/19 at 0324 by QIANA MARY RT Amended: Links added.
[2019-11-09 20:28] VITALS: BP 115/71
[2019-11-09] MEDS: ASCORBIC ACID 500 MG TABLET GT SCH (21:33)
[2019-11-09] MEDS: INSULIN GLARGINE, 100 UNIT/ML CARTRIDGE SQ SCH (21:34)
[2019-11-10] MEDS: GABAPENTIN 300 MG CAPSULE GT SCH ×3 (05:19→21:18)
[2019-11-10] MEDS: METOCLOPRAMIDE HCL 10 MG/10 ML UDC GT SCH ×4 (05:19→23:03)
[2019-11-10] MEDS: OMEPRAZOLE 20 MG CAPSULE.DR GT SCH (05:19)
[2019-11-10 07:06] LABS: HEMOGLOBIN 7.3 g/dL (11.5-14.8)
[2019-11-10 08:00] VITALS: BP 128/68
[2019-11-10] MEDS: BLOOD SUGAR DIAGNOSTIC 1 EACH STRIP IN SCH ×2 (09:00→21:18)
[2019-11-10] MEDS: OXCARBAZEPINE 150 MG TABLET GT SCH ×2 (09:00→21:18)
[2019-11-10] MEDS: LEVETIRACETAM SOL (5 ML) 100 MG/ML UDC GT SCH ×2 (09:00→21:18)
[2019-11-10] MEDS: Z GUARD REMEDY 2 OZ OINT TP SCH ×2 (09:00→21:19)
[2019-11-10] MEDS: FERROUS SULFATE UDC 300 MG/5 ML UDC GT SCH ×2 (09:00→21:18)
[2019-11-10] MEDS: SIMETHICONE SUSP 40 MG/0.6 ML BOTTLE GT SCH ×2 (09:00→21:18)
[2019-11-10] MEDS: ACIDOPHILUS/BULGARICUS 1 EACH TAB.CHEW GT SCH ×2 (09:00→17:13)
[2019-11-10] MEDS: HEPARIN SODIUM, PORCINE 5000 UNITS/1 ML VIAL SQ SCH ×2 (09:00→21:19)
[2019-11-10] MEDS: SENNOSIDES 8.6 MG TABLET GT SCH ×2 (09:00→21:18)
[2019-11-10] MEDS: MULTIVIT W/MINERALS 1 TAB TABLET GT SCH (09:00)
[2019-11-10] MEDS: DOCUSATE SODIUM LIQ 100 MG/10 ML UDC GT SCH (09:00)
--- NOTE | 2019-11-10 09:18 | NUR ---
Spoke with Dr. Kumar regarding pt's Hgb of 7.3 (trending down) and possibility of increasing Epogen. Per Dr. Kumar, pt is already getting high dose of Epogen and will just most likely get blood transfusion as needed. His recommendation is to refer pt to bronze chaser for further eval. Dr. Luis notified of recommendation with order to refer to Dr Rodriges (bronze chaser). Called and notified Dr. Rodriges of referral. Pt's sister Beckie notified of bronze chaser referral. Pt in no distress, no bleeding noted from maher catheter or nephrostomy tube. No other s/s of bleeding noted. Addendum: 11/10/19 at 0931 by GEOFFREY JOYA RN Notified Dr. Luis of Hgb 7.3, Hct 23. No additional order.
[2019-11-10] MEDS: HYDROGEN PEROXIDE 480 ML BOTTLE TP SCH ×2 (10:00→20:23)
--- NOTE | 2019-11-10 14:30 | NUR ---
Seen and examined by Dr. Luis, notified him that Dr. Rodriges was made aware of hematology consult. No additional order given.
[2019-11-10] MEDS: EPOETIN ALFA (4000 UNIT) 4,000 UNIT/ML VIAL SQ SCH (15:19)
[2019-11-10] MEDS: GLUCERNA 1.2 1,000 ML BOTTLE NG PRN (17:13)
--- NOTE | 2019-11-10 17:25 | NUR ---
Seen and examined by Anna Vargas LABOR CONTRACT ANALYST, NNO given.
[2019-11-10 20:08] VITALS: BP 128/64
--- NOTE | 2019-11-10 20:20 | NUR ---
Received call from Dr. Rodriges(didactic program in dietetics director) she asked about the patient and orders blood test,stool and urine analysis.Will carry out orders.
--- NOTE | 2019-11-10 20:23 | NUR ---
RT NOTE: RECEIVED TRACH PATIENT ON [facility] VENT WITH NOTED SETTINGS PER MD ORDERS. TRACH CARE DONE. TRACH IS PATENT AND SECURED. SX DONE PRN. ALARMS ARE ON AND AUDIBLE. VENT IS PLUGGED INTO RED OUTLET WITH AMBU BAG AT BEDSIDE. NO RESP DISTRESS NOTED AT THIS TIME. WILL CONT TO MONITOR PT. Addendum: 11/10/19 at 2024 by QIANA MARY RT Amended: Links added.
[2019-11-10] MEDS: ASCORBIC ACID 500 MG TABLET GT SCH (21:18)
[2019-11-10] MEDS: INSULIN GLARGINE, 100 UNIT/ML CARTRIDGE SQ SCH (21:20)
[2019-11-11] MEDS: OMEPRAZOLE 20 MG CAPSULE.DR GT SCH (05:13)
[2019-11-11] MEDS: METOCLOPRAMIDE HCL 10 MG/10 ML UDC GT SCH ×3 (05:13→18:13)
[2019-11-11] MEDS: GABAPENTIN 300 MG CAPSULE GT SCH ×3 (05:13→21:00)
[2019-11-11 06:08] LABS: APPEARANCE,URINE SL CLOUDY (CLEAR); BILIRUBIN,URINE NEGATIVE (NEGATIVE); BLOOD, URINE SMALL Ery/uL (NEGATIVE); COLOR,URINE YELLOW (YELLOW); KETONES,URINE NEGATIVE (NEGATIVE); LEUKOCYTE ESTERASE ,URINE LARGE (NEGATIVE); NITRITE, URINE NEGATIVE (NEGATIVE); PROTEIN,URINE 100 mg/dl (NEGATIVE); UGLUCOSE NEGATIVE (NEGATIVE); UROBILINOGEN,URINE 0.2 EU/dL (0.2)
[2019-11-11 06:14] LABS: BACTERIA,URINE 1+ /HPF (None Seen); WBC,URINE 21-50 /HPF (0-3)
[2019-11-11 07:54] VITALS: BP 140/73
[2019-11-11] MEDS: MULTIVIT W/MINERALS 1 TAB TABLET GT SCH (09:00)
[2019-11-11] MEDS: SIMETHICONE SUSP 40 MG/0.6 ML BOTTLE GT SCH ×2 (09:00→21:00)
[2019-11-11] MEDS: BLOOD SUGAR DIAGNOSTIC 1 EACH STRIP IN SCH ×2 (09:00→21:00)
[2019-11-11] MEDS: HYDROGEN PEROXIDE 480 ML BOTTLE TP SCH ×2 (09:00→20:19)
[2019-11-11] MEDS: Z GUARD REMEDY 2 OZ OINT TP SCH ×2 (09:00→21:00)
[2019-11-11] MEDS: SENNOSIDES 8.6 MG TABLET GT SCH ×2 (09:00→21:00)
[2019-11-11] MEDS: FERROUS SULFATE UDC 300 MG/5 ML UDC GT SCH ×2 (09:00→21:00)
[2019-11-11] MEDS: DOCUSATE SODIUM LIQ 100 MG/10 ML UDC GT SCH (09:00)
[2019-11-11] MEDS: ACIDOPHILUS/BULGARICUS 1 EACH TAB.CHEW GT SCH ×2 (09:00→17:00)
[2019-11-11] MEDS: HEPARIN SODIUM, PORCINE 5000 UNITS/1 ML VIAL SQ SCH ×2 (09:00→21:00)
[2019-11-11] MEDS: OXCARBAZEPINE 150 MG TABLET GT SCH ×2 (09:00→21:00)
[2019-11-11] MEDS: LEVETIRACETAM SOL (5 ML) 100 MG/ML UDC GT SCH ×2 (09:00→21:00)
[2019-11-11 09:10] LABS: OCCULT BLOOD STOOL POSITIVE (NEGATIVE)
--- NOTE | 2019-11-11 16:20 | NUR ---
INTERDISCIPLINARY PLAN OF CARE CONFERENCE took place today. The patients responsible libertarian/ Beckie Chu [phone] was not able to participate. Dr. Felix and Interdisciplinary team discussed the plan of care in detail. Current orders as well as treatments and medications were reviewed. Please see other disciplines IDT notes for further details.
[2019-11-11] MEDS: GLUCERNA 1.2 1,000 ML BOTTLE NG PRN (18:13)
[2019-11-11 20:19] VITALS: BP 131/76
--- NOTE | 2019-11-11 20:19 | NUR ---
RT NOTE: RECEIVED TRACH PATIENT ON [facility] VENT WITH NOTED SETTINGS PER MD ORDERS. TRACH CARE DONE. TRACH IS PATENT AND SECURED. SX DONE PRN. ALARMS ARE ON AND AUDIBLE. VENT IS PLUGGED INTO RED OUTLET WITH AMBU BAG AT BEDSIDE. NO RESP DISTRESS NOTED AT THIS TIME. WILL CONT TO MONITOR PT. Addendum: 11/11/19 at 2020 by QIANA MARY RT Amended: Links added.
[2019-11-11] MEDS: ASCORBIC ACID 500 MG TABLET GT SCH (21:00)
[2019-11-11] MEDS: INSULIN GLARGINE, 100 UNIT/ML CARTRIDGE SQ SCH (22:00)
[2019-11-12] MEDS: METOCLOPRAMIDE HCL 10 MG/10 ML UDC GT SCH ×5 (00:34→23:14)
[2019-11-12] MEDS: GABAPENTIN 300 MG CAPSULE GT SCH ×3 (05:00→20:20)
[2019-11-12] MEDS: OMEPRAZOLE 20 MG CAPSULE.DR GT SCH (06:17)
[2019-11-12 07:53] VITALS: BP 127/78
[2019-11-12] MEDS: HYDROGEN PEROXIDE 480 ML BOTTLE TP SCH ×2 (08:11→21:05)
[2019-11-12] MEDS: SENNOSIDES 8.6 MG TABLET GT SCH ×2 (08:34→20:20)
[2019-11-12] MEDS: ACIDOPHILUS/BULGARICUS 1 EACH TAB.CHEW GT SCH ×2 (08:34→17:40)
[2019-11-12] MEDS: DOCUSATE SODIUM LIQ 100 MG/10 ML UDC GT SCH (08:34)
[2019-11-12] MEDS: SIMETHICONE SUSP 40 MG/0.6 ML BOTTLE GT SCH ×2 (08:34→20:20)
[2019-11-12] MEDS: MULTIVIT W/MINERALS 1 TAB TABLET GT SCH (08:34)
[2019-11-12] MEDS: LEVETIRACETAM SOL (5 ML) 100 MG/ML UDC GT SCH ×2 (08:34→20:20)
[2019-11-12] MEDS: FERROUS SULFATE UDC 300 MG/5 ML UDC GT SCH ×2 (08:34→20:20)
[2019-11-12] MEDS: OXCARBAZEPINE 150 MG TABLET GT SCH ×2 (08:36→20:20)
[2019-11-12] MEDS: HEPARIN SODIUM, PORCINE 5000 UNITS/1 ML VIAL SQ SCH ×2 (08:38→20:21)
[2019-11-12] MEDS: Z GUARD REMEDY 2 OZ OINT TP SCH ×2 (08:38→20:21)
[2019-11-12] MEDS: INSULIN REGULAR, HUMAN 100 UNIT/ML 3 ML VIAL SQ PRN ×2 (08:58→21:19)
[2019-11-12] MEDS: BLOOD SUGAR DIAGNOSTIC 1 EACH STRIP IN SCH ×2 (08:58→21:55)
[2019-11-12 12:07] LABS: IMMUNOGLOBULIN A, SERUM 698 mg/dL (87-352); IMMUNOGLOBULIN G, SERUM 3644 mg/dL (586-1602)
--- NOTE | 2019-11-12 15:40 | NUR ---
Received a call from Dr. Rodriges, commercial fishing vessel operator asking if resident has any blood in the stool. No blood in the stool reported in the past. Resident has no BM at this time, no hematuria from Bourgeois catheter or nephrostomy bag.
[2019-11-12 20:08] VITALS: BP 133/64
[2019-11-12] MEDS: ASCORBIC ACID 500 MG TABLET GT SCH (20:20)
[2019-11-12] MEDS: INSULIN GLARGINE, 100 UNIT/ML CARTRIDGE SQ SCH (21:18)
[2019-11-13] MEDS: GABAPENTIN 300 MG CAPSULE GT SCH ×3 (04:20→21:40)
[2019-11-13] MEDS: GLUCERNA 1.2 1,000 ML BOTTLE NG PRN (04:21)
[2019-11-13] MEDS: METOCLOPRAMIDE HCL 10 MG/10 ML UDC GT SCH ×3 (05:09→18:07)
[2019-11-13] MEDS: OMEPRAZOLE 20 MG CAPSULE.DR GT SCH (05:09)
[2019-11-13 07:28] VITALS: BP 149/79
[2019-11-13] MEDS: SENNOSIDES 8.6 MG TABLET GT SCH ×2 (09:00→21:40)
[2019-11-13] MEDS: ACIDOPHILUS/BULGARICUS 1 EACH TAB.CHEW GT SCH ×2 (09:00→16:53)
[2019-11-13] MEDS: FERROUS SULFATE UDC 300 MG/5 ML UDC GT SCH ×2 (09:00→21:40)
[2019-11-13] MEDS: HEPARIN SODIUM, PORCINE 5000 UNITS/1 ML VIAL SQ SCH ×2 (09:00→21:41)
[2019-11-13] MEDS: MULTIVIT W/MINERALS 1 TAB TABLET GT SCH (09:00)
[2019-11-13] MEDS: DOCUSATE SODIUM LIQ 100 MG/10 ML UDC GT SCH (09:00)
[2019-11-13] MEDS: OXCARBAZEPINE 150 MG TABLET GT SCH ×2 (09:00→21:40)
[2019-11-13] MEDS: Z GUARD REMEDY 2 OZ OINT TP SCH ×2 (09:00→21:41)
[2019-11-13] MEDS: LEVETIRACETAM SOL (5 ML) 100 MG/ML UDC GT SCH ×2 (09:00→21:40)
[2019-11-13] MEDS: BLOOD SUGAR DIAGNOSTIC 1 EACH STRIP IN SCH ×2 (09:00→21:40)
[2019-11-13] MEDS: SIMETHICONE SUSP 40 MG/0.6 ML BOTTLE GT SCH ×2 (09:00→21:40)
[2019-11-13] MEDS: HYDROGEN PEROXIDE 480 ML BOTTLE TP SCH ×2 (10:00→20:03)
[2019-11-13] MEDS: INSULIN REGULAR, HUMAN 100 UNIT/ML 3 ML VIAL SQ PRN ×2 (10:35→21:42)
--- NOTE | 2019-11-13 16:00 | NUR ---
Dr. Rodriges, S, Lubrication Servicer called and ordered patient to have GI consult due to (+) stool OB x 1. Called GI Dr. Grajeda, and notified him of GI consult. noted and carried out.
[2019-11-13 21:05] VITALS: BP 134/71
[2019-11-13] MEDS: ASCORBIC ACID 500 MG TABLET GT SCH (21:40)
[2019-11-13] MEDS: INSULIN GLARGINE, 100 UNIT/ML CARTRIDGE SQ SCH (21:42)
[2019-11-14] MEDS: METOCLOPRAMIDE HCL 10 MG/10 ML UDC GT SCH ×4 (00:17→17:45)
[2019-11-14] MEDS: GLUCERNA 1.2 1,000 ML BOTTLE NG PRN (04:11)
[2019-11-14] MEDS: GABAPENTIN 300 MG CAPSULE GT SCH ×3 (04:55→21:17)
[2019-11-14] MEDS: OMEPRAZOLE 20 MG CAPSULE.DR GT SCH (05:16)
[2019-11-14 07:15] LABS: BASOPHILS # (AUTO) 0.1 /CMM (0.0-0.2); BASOPHILS % (AUTO) 0.7 % (0.0-2.0); CALCIUM, SERUM 10.6 mg/dL (8.5-10.1); CREATININE 3.5 mg/dL (0.6-1.3); EOSINOPHILS % (AUTO) 4.5 % (0.0-6.0); HEMATOCRIT 22 % (33-45); HEMOGLOBIN 7.3 g/dL (11.5-14.8); LYMPHOCYTES # (AUTO) 1.6 /CMM (0.8-4.8); LYMPHOCYTES % (AUTO) 14.3 % (20.0-44.0); MEAN CORPUSCULAR HGB CONC 34 g/dl (31.0-36.0); MEAN CORPUSCULAR VOLUME 100 fL (82-100); MONOCYTES # (AUTO) 0.6 /CMM (0.1-1.30); MONOCYTES % (AUTO) 5.3 % (2.0-12.0); NEUTROPHILS # (AUTO) 8.6 /CMM (1.8-8.9); NEUTROPHILS % (AUTO) 75.2 % (43.0-81.0); PLATELET COUNT (AUTO) 396 /CMM (150-450); POTASSIUM 5.4 mmol/L (3.5-5.1); RED BLOOD CELL COUNT(AUTO) 2.17 MIL/uL (4.0-5.2); WHITE BLOOD COUNT (AUTO) 11.4 K/uL (4.3-11.0)
[2019-11-14 08:04] VITALS: BP 153/76
[2019-11-14] MEDS: FERROUS SULFATE UDC 300 MG/5 ML UDC GT SCH ×2 (09:00→21:16)
[2019-11-14] MEDS: LEVETIRACETAM SOL (5 ML) 100 MG/ML UDC GT SCH ×2 (09:00→21:16)
[2019-11-14] MEDS: BLOOD SUGAR DIAGNOSTIC 1 EACH STRIP IN SCH ×2 (09:00→21:00)
[2019-11-14] MEDS: OXCARBAZEPINE 150 MG TABLET GT SCH ×2 (09:00→21:18)
[2019-11-14] MEDS: ACIDOPHILUS/BULGARICUS 1 EACH TAB.CHEW GT SCH ×2 (09:00→17:45)
[2019-11-14] MEDS: SIMETHICONE SUSP 40 MG/0.6 ML BOTTLE GT SCH ×2 (09:00→21:17)
[2019-11-14] MEDS: HEPARIN SODIUM, PORCINE 5000 UNITS/1 ML VIAL SQ SCH ×2 (09:00→21:20)
[2019-11-14] MEDS: SENNOSIDES 8.6 MG TABLET GT SCH ×2 (09:00→21:19)
[2019-11-14] MEDS: DOCUSATE SODIUM LIQ 100 MG/10 ML UDC GT SCH (09:00)
[2019-11-14] MEDS: MULTIVIT W/MINERALS 1 TAB TABLET GT SCH (09:00)
[2019-11-14] MEDS: Z GUARD REMEDY 2 OZ OINT TP SCH ×2 (09:00→21:20)
--- NOTE | 2019-11-14 09:51 | NUR ---
Relayed lab results to NAN Vargas. Received order to give NS at 70 mL/hr IV and notify nephrology. Notified Dr Kumar of lab results and IV fluid order. Addendum: 11/14/19 at 1005 by SARITA GOMEZ RN Dr Kumar said he will see pt today.
[2019-11-14] MEDS: HYDROGEN PEROXIDE 480 ML BOTTLE TP SCH ×2 (10:00→21:00)
[2019-11-14] MEDS: IV NS 0.9% 1,000 ML IV PRN (10:50)
--- NOTE | 2019-11-14 12:12 | NUR ---
Pt was seen by Dr Kumar. Received order to give Lasix 20 mg GT x 1 today, CBC CMP Mg Phos PTH in AM. Notified Beckie.
[2019-11-14] MEDS ORDERED: FUROSEMIDE 20 MG TABLET GT ONE (12:30)
--- NOTE | 2019-11-14 12:47 | NUR ---
Left message for Dr Andrade to remind him of GI consult. Addendum: 11/14/19 at 1528 by SARITA GOMEZ RN Dr Raymond esquivel.
[2019-11-14] MEDS: EPOETIN ALFA (4000 UNIT) 4,000 UNIT/ML VIAL SQ SCH (15:00)
[2019-11-14 20:00] VITALS: BP 128/75
[2019-11-14] MEDS ORDERED: ZINC OXIDE 30 GM TUBE TP PRN (21:00)
[2019-11-14] MEDS: ASCORBIC ACID 500 MG TABLET GT SCH (21:19)
[2019-11-14] MEDS: ZINC OXIDE 30 GM TUBE TP SCH (21:20)
[2019-11-14] MEDS: INSULIN GLARGINE, 100 UNIT/ML CARTRIDGE SQ SCH (22:02)
[2019-11-14] MEDS: INSULIN REGULAR, HUMAN 100 UNIT/ML 3 ML VIAL SQ PRN (22:03)
--- NOTE | 2019-11-14 23:50 | NUR ---
RN NOTES Received a call from Dr. Rodriges, discussed lab results and plan of care for pt. Received new order from Dr. Rodriges to continue oral iron, D/C Heparin 5,000 units, and repeat stool collection for OB, noted and carried out.
[2019-11-15] MEDS: METOCLOPRAMIDE HCL 10 MG/10 ML UDC GT SCH ×4 (00:20→18:03)
[2019-11-15] MEDS: GLUCERNA 1.2 1,000 ML BOTTLE NG PRN (00:21)
[2019-11-15] MEDS: IV NS 0.9% 1,000 ML IV PRN ×2 (01:47→16:00)
[2019-11-15] MEDS: OMEPRAZOLE 20 MG CAPSULE.DR GT SCH (05:05)
[2019-11-15] MEDS: GABAPENTIN 300 MG CAPSULE GT SCH ×3 (05:05→20:45)
[2019-11-15 05:07] LABS: *SPE A/G RATIO 0.4 (0.7-1.7); *SPE ALBUMIN 2.6 g/dL (2.9-4.4); *SPE ALPHA-1-GLOBULIN 0.3 g/dL (0.0-0.4); *SPE ALPHA-2-GLOBULIN 0.9 g/dL (0.4-1.0); *SPE BETA GLOBULIN 1.3 g/dL (0.7-1.3); *SPE M-SPIKE Not Observed g/dL (Not Observed); *SPEGAMMA GLOBULIN 3.5 g/dL (0.4-1.8)
[2019-11-15 06:38] LABS: BASOPHILS % (AUTO) 0.5 % (0.0-2.0); EOSINOPHILS % (AUTO) 5.5 % (0.0-6.0); HEMATOCRIT 22 % (33-45); HEMOGLOBIN 7.7 g/dL (11.5-14.8); LYMPHOCYTES # (AUTO) 1.6 /CMM (0.8-4.8); LYMPHOCYTES % (AUTO) 15.8 % (20.0-44.0); MEAN CORPUSCULAR HGB CONC 35 g/dl (31.0-36.0); MEAN CORPUSCULAR VOLUME 100 fL (82-100); MONOCYTES # (AUTO) 0.7 /CMM (0.1-1.30); MONOCYTES % (AUTO) 7.4 % (2.0-12.0); NEUTROPHILS # (AUTO) 7.1 /CMM (1.8-8.9); NEUTROPHILS % (AUTO) 70.8 % (43.0-81.0); PLATELET COUNT (AUTO) 387 /CMM (150-450); RED BLOOD CELL COUNT(AUTO) 2.17 MIL/uL (4.0-5.2)
[2019-11-15 06:42] LABS: ALBUMIN 2.4 g/dL (3.4-5.0); BILIRUBIN,TOTAL 0.2 mg/dL (0.2-1.0); CALCIUM, SERUM 10.5 mg/dL (8.5-10.1); CREATININE 3.3 mg/dL (0.6-1.3); MAGNESIUM 3.1 mg/dL (1.8-2.4); PHOSPHORUS 5.7 mg/dL (2.5-4.9); POTASSIUM 4.9 mmol/L (3.5-5.1); TOTAL PROTEIN, SERUM 9.9 g/dL (6.4-8.2)
[2019-11-15 07:24] VITALS: BP 124/65
[2019-11-15] MEDS: HYDROGEN PEROXIDE 480 ML BOTTLE TP SCH ×2 (08:21→21:00)
[2019-11-15] MEDS: SENNOSIDES 8.6 MG TABLET GT SCH ×2 (08:50→20:47)
[2019-11-15] MEDS: OXCARBAZEPINE 150 MG TABLET GT SCH ×2 (08:50→20:46)
[2019-11-15] MEDS: FERROUS SULFATE UDC 300 MG/5 ML UDC GT SCH ×2 (08:50→20:47)
[2019-11-15] MEDS: ZINC OXIDE 30 GM TUBE TP SCH ×2 (08:50→20:49)
[2019-11-15] MEDS: SIMETHICONE SUSP 40 MG/0.6 ML BOTTLE GT SCH ×2 (08:50→20:47)
[2019-11-15] MEDS: MULTIVIT W/MINERALS 1 TAB TABLET GT SCH (08:50)
[2019-11-15] MEDS: DOCUSATE SODIUM LIQ 100 MG/10 ML UDC GT SCH (08:50)
[2019-11-15] MEDS: ACIDOPHILUS/BULGARICUS 1 EACH TAB.CHEW GT SCH ×2 (08:50→17:17)
[2019-11-15] MEDS: Z GUARD REMEDY 2 OZ OINT TP SCH ×2 (08:50→20:49)
[2019-11-15] MEDS: INSULIN REGULAR, HUMAN 100 UNIT/ML 3 ML VIAL SQ PRN ×2 (08:50→20:48)
[2019-11-15] MEDS: BLOOD SUGAR DIAGNOSTIC 1 EACH STRIP IN SCH ×2 (08:50→20:48)
[2019-11-15] MEDS: LEVETIRACETAM SOL (5 ML) 100 MG/ML UDC GT SCH ×2 (08:50→20:46)
--- NOTE | 2019-11-15 09:45 | NUR ---
Seen by Dr Felix. Relayed lab results to him. He ordered to continue NS at 70 mL/hr IV x 48 hours more, do Chem 7 on 11/17/19, and decrease GT water flushes from 100 mL to 50 mL q 6 hours. Notified Beckie.
[2019-11-15 20:01] VITALS: BP 123/62
[2019-11-15] MEDS: ASCORBIC ACID 500 MG TABLET GT SCH (20:48)
[2019-11-15] MEDS: INSULIN GLARGINE, 100 UNIT/ML CARTRIDGE SQ SCH (21:33)
--- NOTE | 2019-11-15 23:55 | NUR ---
RN NOTES Received new order to collect stool for OB, noted and carried out.
[2019-11-16] MEDS: METOCLOPRAMIDE HCL 10 MG/10 ML UDC GT SCH ×5 (00:06→23:57)
[2019-11-16 02:32] LABS: OCCULT BLOOD STOOL POSITIVE (NEGATIVE)
[2019-11-16] MEDS: GABAPENTIN 300 MG CAPSULE GT SCH ×3 (05:29→21:33)
[2019-11-16] MEDS: OMEPRAZOLE 20 MG CAPSULE.DR GT SCH (05:29)
[2019-11-16 07:49] VITALS: BP 131/69
[2019-11-16] MEDS: HYDROGEN PEROXIDE 480 ML BOTTLE TP SCH ×2 (09:00→19:56)
[2019-11-16] MEDS: FERROUS SULFATE UDC 300 MG/5 ML UDC GT SCH ×2 (09:08→21:33)
[2019-11-16] MEDS: Z GUARD REMEDY 2 OZ OINT TP SCH ×2 (09:08→21:33)
[2019-11-16] MEDS: MULTIVIT W/MINERALS 1 TAB TABLET GT SCH (09:08)
[2019-11-16] MEDS: OXCARBAZEPINE 150 MG TABLET GT SCH ×2 (09:08→21:33)
[2019-11-16] MEDS: LEVETIRACETAM SOL (5 ML) 100 MG/ML UDC GT SCH ×2 (09:08→21:33)
[2019-11-16] MEDS: DOCUSATE SODIUM LIQ 100 MG/10 ML UDC GT SCH (09:08)
[2019-11-16] MEDS: SIMETHICONE SUSP 40 MG/0.6 ML BOTTLE GT SCH ×2 (09:08→21:33)
[2019-11-16] MEDS: SENNOSIDES 8.6 MG TABLET GT SCH ×2 (09:08→21:33)
[2019-11-16] MEDS: ZINC OXIDE 30 GM TUBE TP SCH ×2 (09:08→21:33)
[2019-11-16] MEDS: ACIDOPHILUS/BULGARICUS 1 EACH TAB.CHEW GT SCH ×2 (09:08→17:52)
[2019-11-16] MEDS: BLOOD SUGAR DIAGNOSTIC 1 EACH STRIP IN SCH ×2 (09:46→21:33)
[2019-11-16] MEDS: INSULIN REGULAR, HUMAN 100 UNIT/ML 3 ML VIAL SQ PRN (09:46)
--- NOTE | 2019-11-16 11:00 | NUR ---
Seen and examined by Dr. Luis, no new order given. Reviewed CBC and CMP result collected yesterday. Repeat BMP scheduled for tomorrow. Asked MD if he ever spoke with resident's sister since she requested to speak with him in the past. According to Dr. Luis he left her 3 messages but has not spoken with her. He gave his number in case she wants to speak with him .
--- NOTE | 2019-11-16 17:06 | NUR ---
Received a call from Dr. Rodriges, she said she ordered CBC in AM and she wants also to ask GI if they want to do something about positive occult blood. Left a message to Dr. Freed. Resident's sister Beckie made aware of the positive OB result which GI was notified per request of curing pickling packer. She was also informed that patient noted to have gluteal crease open skin approx 2.5 x 0.4. Wound consult ordered. Appreciated the information given. Dr. Luis's phone number was also given to Beckie in case she wants to speak with .
[2019-11-16] MEDS: GLUCERNA 1.2 1,000 ML BOTTLE NG PRN (18:20)
[2019-11-16 19:54] VITALS: BP 122/76
[2019-11-16] MEDS: IV NS 0.9% 1,000 ML IV PRN (20:38)
[2019-11-16] MEDS: ASCORBIC ACID 500 MG TABLET GT SCH (21:33)
[2019-11-16] MEDS: INSULIN GLARGINE, 100 UNIT/ML CARTRIDGE SQ SCH (21:34)
[2019-11-17 04:47] LABS: OCCULT BLOOD STOOL POSITIVE (NEGATIVE)
[2019-11-17] MEDS: GABAPENTIN 300 MG CAPSULE GT SCH ×3 (05:24→20:15)
[2019-11-17] MEDS: OMEPRAZOLE 20 MG CAPSULE.DR GT SCH (05:24)
[2019-11-17] MEDS: METOCLOPRAMIDE HCL 10 MG/10 ML UDC GT SCH ×4 (05:24→23:12)
[2019-11-17 06:59] LABS: BASOPHILS # (AUTO) 0.1 /CMM (0.0-0.2); EOSINOPHILS % (AUTO) 6.4 % (0.0-6.0); HEMATOCRIT 21 % (33-45); HEMOGLOBIN 7.2 g/dL (11.5-14.8); LYMPHOCYTES # (AUTO) 1.8 /CMM (0.8-4.8); LYMPHOCYTES % (AUTO) 24.3 % (20.0-44.0); MEAN CORPUSCULAR HGB CONC 34 g/dl (31.0-36.0); MEAN CORPUSCULAR VOLUME 101 fL (82-100); MONOCYTES # (AUTO) 0.8 /CMM (0.1-1.30); MONOCYTES % (AUTO) 10.1 % (2.0-12.0); NEUTROPHILS # (AUTO) 4.4 /CMM (1.8-8.9); NEUTROPHILS % (AUTO) 58.2 % (43.0-81.0); PLATELET COUNT (AUTO) 359 /CMM (150-450); RED BLOOD CELL COUNT(AUTO) 2.12 MIL/uL (4.0-5.2); WHITE BLOOD COUNT (AUTO) 7.5 K/uL (4.3-11.0)
[2019-11-17 07:34] LABS: ALBUMIN 2.3 g/dL (3.4-5.0); BILIRUBIN,TOTAL 0.2 mg/dL (0.2-1.0); CALCIUM, SERUM 9.8 mg/dL (8.5-10.1); CREATININE 3.1 mg/dL (0.6-1.3); MAGNESIUM 2.8 mg/dL (1.8-2.4); PHOSPHORUS 5.3 mg/dL (2.5-4.9); POTASSIUM 4.8 mmol/L (3.5-5.1); TOTAL PROTEIN, SERUM 9.5 g/dL (6.4-8.2)
[2019-11-17 07:57] VITALS: BP 119/63
[2019-11-17] MEDS: HYDROGEN PEROXIDE 480 ML BOTTLE TP SCH ×2 (08:46→20:11)
[2019-11-17] MEDS: LEVETIRACETAM SOL (5 ML) 100 MG/ML UDC GT SCH ×2 (09:00→20:15)
[2019-11-17] MEDS: MULTIVIT W/MINERALS 1 TAB TABLET GT SCH (09:00)
[2019-11-17] MEDS: BLOOD SUGAR DIAGNOSTIC 1 EACH STRIP IN SCH ×2 (09:00→21:05)
[2019-11-17] MEDS: SIMETHICONE SUSP 40 MG/0.6 ML BOTTLE GT SCH ×2 (09:00→20:15)
[2019-11-17] MEDS: ACIDOPHILUS/BULGARICUS 1 EACH TAB.CHEW GT SCH ×2 (09:00→17:57)
[2019-11-17] MEDS: OXCARBAZEPINE 150 MG TABLET GT SCH ×2 (09:00→20:15)
[2019-11-17] MEDS: DOCUSATE SODIUM LIQ 100 MG/10 ML UDC GT SCH (09:00)
[2019-11-17] MEDS: Z GUARD REMEDY 2 OZ OINT TP SCH ×2 (09:00→20:15)
[2019-11-17] MEDS: FERROUS SULFATE UDC 300 MG/5 ML UDC GT SCH ×2 (09:00→20:15)
[2019-11-17] MEDS: ZINC OXIDE 30 GM TUBE TP SCH ×2 (09:00→20:15)
[2019-11-17] MEDS: SENNOSIDES 8.6 MG TABLET GT SCH ×2 (09:00→20:15)
[2019-11-17] MEDS: IV NS 0.9% 1,000 ML IV PRN (12:00)
[2019-11-17] MEDS: EPOETIN ALFA (4000 UNIT) 4,000 UNIT/ML VIAL SQ SCH (15:00)
--- NOTE | 2019-11-17 15:44 | NUR ---
RT NOTES: PATIENT RECEIVED TRACHED ON MECHANICAL VENT. ALARMS VERIFIED AND AUDIBLE. VENT PLUGGED INTO RED OUTLET. NEW TRACH AND AMBU BAG AT [facility].
--- NOTE | 2019-11-17 17:00 | NUR ---
Seen by NAN Vargas. Relayed lab results to her. She said to just finish the bag of NS that is currently infusing and then DC it. Dr Felix ordered to give NS until today.
--- NOTE | 2019-11-17 18:00 | NUR ---
Dr Rodriges called. Informed her that Hgb 7.2, stools are positive for occult blood. Dr Rodriges said she thinks the low hemoglobin is caused by GI issues. Addendum: 11/17/19 at 1808 by SARITA GOMEZ RN Pt has been evaluated by Dr Andrade (GI). No new order.
[2019-11-17] MEDS: GLUCERNA 1.2 1,000 ML BOTTLE NG PRN (19:00)
[2019-11-17 19:54] VITALS: BP 134/79
[2019-11-17] MEDS: ASCORBIC ACID 500 MG TABLET GT SCH (20:15)
[2019-11-17] MEDS: MAGNESIUM HYDROXIDE 30 ML UDC GT PRN (20:15)
[2019-11-17] MEDS: INSULIN GLARGINE, 100 UNIT/ML CARTRIDGE SQ SCH (21:05)
[2019-11-18] MEDS: GABAPENTIN 300 MG CAPSULE GT SCH ×3 (05:19→20:15)
[2019-11-18] MEDS: OMEPRAZOLE 20 MG CAPSULE.DR GT SCH (05:19)
[2019-11-18] MEDS: METOCLOPRAMIDE HCL 10 MG/10 ML UDC GT SCH ×3 (05:19→17:53)
[2019-11-18 07:58] VITALS: BP 147/85
[2019-11-18] MEDS: BLOOD SUGAR DIAGNOSTIC 1 EACH STRIP IN SCH ×2 (09:00→21:00)
[2019-11-18] MEDS: SIMETHICONE SUSP 40 MG/0.6 ML BOTTLE GT SCH ×2 (09:00→20:15)
[2019-11-18] MEDS: ZINC OXIDE 30 GM TUBE TP SCH ×2 (09:00→21:00)
[2019-11-18] MEDS: DOCUSATE SODIUM LIQ 100 MG/10 ML UDC GT SCH (09:00)
[2019-11-18] MEDS: LEVETIRACETAM SOL (5 ML) 100 MG/ML UDC GT SCH ×2 (09:00→20:15)
[2019-11-18] MEDS: FERROUS SULFATE UDC 300 MG/5 ML UDC GT SCH ×2 (09:00→20:15)
[2019-11-18] MEDS: ACIDOPHILUS/BULGARICUS 1 EACH TAB.CHEW GT SCH ×2 (09:00→17:53)
[2019-11-18] MEDS: OXCARBAZEPINE 150 MG TABLET GT SCH ×2 (09:00→20:15)
[2019-11-18] MEDS: SENNOSIDES 8.6 MG TABLET GT SCH ×2 (09:00→20:15)
[2019-11-18] MEDS: HYDROGEN PEROXIDE 480 ML BOTTLE TP SCH ×2 (09:00→21:00)
[2019-11-18] MEDS: Z GUARD REMEDY 2 OZ OINT TP SCH ×2 (09:00→21:00)
[2019-11-18] MEDS: MULTIVIT W/MINERALS 1 TAB TABLET GT SCH (09:00)
--- NOTE | 2019-11-18 09:31 | NUR ---
WOUND CARE CONSULT: PT SEEN FOR GLUTEAL CREASE INCONTINENCE ASSOCIATED SKIN DAMAGE. CONCUR WITH CURRENT TREATMENT ORDER FOR ZINC OXIDE AND COVER WITH MEPILEX. SKIN TO BE KEPT CLEAN AND DRY. DISCUSSED WITH NURSING STAFF. PT NOTED TO HAVE LOOSE STOOL. WILL SEE PRN. IN AGREEMENT WITH PLAN OF CARE.
[2019-11-18] MEDS: GLUCERNA 1.2 1,000 ML BOTTLE NG PRN (13:32)
--- NOTE | 2019-11-18 14:19 | NUR ---
MDS: This SW completed the SS portion of Quarter MDS. The patients responsible libertarian is the patients sister and Conservator, Beckie Chu [phone] who is very involved and supportive. The patient is lethargic, pleasant and non-communicative. 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 The patients last dental exam and cleaning by Dr. Elliott was on 02/04/2019. The patients last optometry exam by Dr. Escalante was on 07/04/2019. The patients last podiatry exam by Dr. Lozano was on 11/17/2019.
[2019-11-18 19:51] VITALS: BP 128/81
[2019-11-18] MEDS: ASCORBIC ACID 500 MG TABLET GT SCH (20:15)
[2019-11-18] MEDS: INSULIN GLARGINE, 100 UNIT/ML CARTRIDGE SQ SCH (21:01)
[2019-11-19] MEDS: METOCLOPRAMIDE HCL 10 MG/10 ML UDC GT SCH ×5 (00:05→23:02)
[2019-11-19] MEDS: GABAPENTIN 300 MG CAPSULE GT SCH ×3 (05:05→20:16)
[2019-11-19] MEDS: OMEPRAZOLE 20 MG CAPSULE.DR GT SCH (05:05)
[2019-11-19] MEDS: GLUCERNA 1.2 1,000 ML BOTTLE NG PRN (05:05)
[2019-11-19 07:59] VITALS: BP 89/55
[2019-11-19 07:59] LABS: BASOPHILS # (AUTO) 0.1 /CMM (0.0-0.2); BASOPHILS % (AUTO) 1.1 % (0.0-2.0); EOSINOPHILS % (AUTO) 7.7 % (0.0-6.0); HEMATOCRIT 26 % (33-45); HEMOGLOBIN 8.6 g/dL (11.5-14.8); LYMPHOCYTES # (AUTO) 1.6 /CMM (0.8-4.8); LYMPHOCYTES % (AUTO) 21.4 % (20.0-44.0); MEAN CORPUSCULAR HGB CONC 33 g/dl (31.0-36.0); MEAN CORPUSCULAR VOLUME 103 fL (82-100); MONOCYTES # (AUTO) 0.7 /CMM (0.1-1.30); MONOCYTES % (AUTO) 9.3 % (2.0-12.0); NEUTROPHILS # (AUTO) 4.6 /CMM (1.8-8.9); NEUTROPHILS % (AUTO) 60.5 % (43.0-81.0); PLATELET COUNT (AUTO) 368 /CMM (150-450); RED BLOOD CELL COUNT(AUTO) 2.57 MIL/uL (4.0-5.2); WHITE BLOOD COUNT (AUTO) 7.5 K/uL (4.3-11.0)
[2019-11-19] MEDS: HYDROGEN PEROXIDE 480 ML BOTTLE TP SCH ×2 (08:54→21:51)
[2019-11-19] MEDS: ZINC OXIDE 30 GM TUBE TP SCH ×2 (09:00→20:16)
[2019-11-19] MEDS: LEVETIRACETAM SOL (5 ML) 100 MG/ML UDC GT SCH ×2 (09:29→20:16)
[2019-11-19] MEDS: DOCUSATE SODIUM LIQ 100 MG/10 ML UDC GT SCH (09:29)
[2019-11-19] MEDS: FERROUS SULFATE UDC 300 MG/5 ML UDC GT SCH ×2 (09:29→20:15)
[2019-11-19] MEDS: ACIDOPHILUS/BULGARICUS 1 EACH TAB.CHEW GT SCH ×2 (09:31→17:48)
[2019-11-19] MEDS: SIMETHICONE SUSP 40 MG/0.6 ML BOTTLE GT SCH ×2 (09:32→20:16)
[2019-11-19] MEDS: SENNOSIDES 8.6 MG TABLET GT SCH ×2 (09:32→20:16)
[2019-11-19] MEDS: OXCARBAZEPINE 150 MG TABLET GT SCH ×2 (09:36→20:16)
[2019-11-19] MEDS: MULTIVIT W/MINERALS 1 TAB TABLET GT SCH (09:36)
[2019-11-19] MEDS: BLOOD SUGAR DIAGNOSTIC 1 EACH STRIP IN SCH ×2 (09:45→21:05)
[2019-11-19] MEDS: INSULIN REGULAR, HUMAN 100 UNIT/ML 3 ML VIAL SQ PRN (09:46)
[2019-11-19] MEDS: Z GUARD REMEDY 2 OZ OINT TP SCH ×2 (09:46→20:16)
[2019-11-19] MEDS: ASCORBIC ACID 500 MG TABLET GT SCH (20:16)
[2019-11-19 20:27] VITALS: BP 136/77
[2019-11-19] MEDS: INSULIN GLARGINE, 100 UNIT/ML CARTRIDGE SQ SCH (21:06)
[2019-11-20] MEDS: GLUCERNA 1.2 1,000 ML BOTTLE NG PRN (05:33)
[2019-11-20] MEDS: GABAPENTIN 300 MG CAPSULE GT SCH ×3 (05:33→20:46)
[2019-11-20] MEDS: OMEPRAZOLE 20 MG CAPSULE.DR GT SCH (05:33)
[2019-11-20] MEDS: METOCLOPRAMIDE HCL 10 MG/10 ML UDC GT SCH ×3 (05:33→17:23)
[2019-11-20 07:59] VITALS: BP 144/83
[2019-11-20] MEDS: HYDROGEN PEROXIDE 480 ML BOTTLE TP SCH ×2 (09:00→21:10)
[2019-11-20] MEDS: ACIDOPHILUS/BULGARICUS 1 EACH TAB.CHEW GT SCH ×2 (09:25→17:23)
[2019-11-20] MEDS: SIMETHICONE SUSP 40 MG/0.6 ML BOTTLE GT SCH ×2 (09:25→20:46)
[2019-11-20] MEDS: DOCUSATE SODIUM LIQ 100 MG/10 ML UDC GT SCH (09:25)
[2019-11-20] MEDS: MULTIVIT W/MINERALS 1 TAB TABLET GT SCH (09:25)
[2019-11-20] MEDS: LEVETIRACETAM SOL (5 ML) 100 MG/ML UDC GT SCH ×2 (09:25→20:45)
[2019-11-20] MEDS: FERROUS SULFATE UDC 300 MG/5 ML UDC GT SCH ×2 (09:25→20:45)
[2019-11-20] MEDS: SENNOSIDES 8.6 MG TABLET GT SCH ×2 (09:25→20:47)
[2019-11-20] MEDS: OXCARBAZEPINE 150 MG TABLET GT SCH ×2 (09:25→20:47)
[2019-11-20] MEDS: BLOOD SUGAR DIAGNOSTIC 1 EACH STRIP IN SCH ×2 (09:26→20:48)
[2019-11-20] MEDS: INSULIN REGULAR, HUMAN 100 UNIT/ML 3 ML VIAL SQ PRN ×2 (09:48→20:56)
[2019-11-20] MEDS: Z GUARD REMEDY 2 OZ OINT TP SCH ×2 (09:49→20:48)
[2019-11-20] MEDS: ZINC OXIDE 30 GM TUBE TP SCH ×2 (09:49→20:48)
[2019-11-20 20:28] VITALS: BP 135/71
[2019-11-20] MEDS: ASCORBIC ACID 500 MG TABLET GT SCH (20:47)
[2019-11-20] MEDS: INSULIN GLARGINE, 100 UNIT/ML CARTRIDGE SQ SCH (22:21)
[2019-11-21] MEDS: METOCLOPRAMIDE HCL 10 MG/10 ML UDC GT SCH ×4 (00:30→17:50)
[2019-11-21] MEDS: GLUCERNA 1.2 1,000 ML BOTTLE NG PRN (05:41)
[2019-11-21] MEDS: GABAPENTIN 300 MG CAPSULE GT SCH ×3 (05:44→20:37)
[2019-11-21] MEDS: OMEPRAZOLE 20 MG CAPSULE.DR GT SCH (05:44)
[2019-11-21 07:08] LABS: HEMOGLOBIN 7.8 g/dL (11.5-14.8)
[2019-11-21 07:41] VITALS: BP 118/66
[2019-11-21] MEDS: HYDROGEN PEROXIDE 480 ML BOTTLE TP SCH ×2 (09:00→21:45)
[2019-11-21] MEDS: BLOOD SUGAR DIAGNOSTIC 1 EACH STRIP IN SCH ×2 (09:45→20:46)
[2019-11-21] MEDS: Z GUARD REMEDY 2 OZ OINT TP SCH ×2 (09:46→20:46)
[2019-11-21] MEDS: INSULIN REGULAR, HUMAN 100 UNIT/ML 3 ML VIAL SQ PRN ×2 (09:46→20:47)
[2019-11-21] MEDS: ZINC OXIDE 30 GM TUBE TP SCH ×2 (09:46→20:46)
[2019-11-21] MEDS: FERROUS SULFATE UDC 300 MG/5 ML UDC GT SCH (09:54)
[2019-11-21] MEDS: MULTIVIT W/MINERALS 1 TAB TABLET GT SCH (09:54)
[2019-11-21] MEDS: SENNOSIDES 8.6 MG TABLET GT SCH ×2 (09:54→20:39)
[2019-11-21] MEDS: LEVETIRACETAM SOL (5 ML) 100 MG/ML UDC GT SCH ×2 (09:54→20:36)
[2019-11-21] MEDS: ACIDOPHILUS/BULGARICUS 1 EACH TAB.CHEW GT SCH ×2 (09:54→17:50)
[2019-11-21] MEDS: OXCARBAZEPINE 150 MG TABLET GT SCH ×2 (09:54→20:38)
[2019-11-21] MEDS: DOCUSATE SODIUM LIQ 100 MG/10 ML UDC GT SCH (09:54)
[2019-11-21] MEDS: SIMETHICONE SUSP 40 MG/0.6 ML BOTTLE GT SCH ×2 (09:54→20:37)
[2019-11-21 13:11] LABS: IMMUNOGLOBULIN M, SERUM 244 mg/dL (26-217)
[2019-11-21] MEDS: EPOETIN ALFA (4000 UNIT) 4,000 UNIT/ML VIAL SQ SCH (15:00)
--- NOTE | 2019-11-21 16:04 | NUR ---
Family Invitation to Plan of Care Conference: This SW called the patient's sister, Beckie Chu to invite her to the 11/25/2019 12:30 pm IDT meeting via phone conference. Per Beckie, she does not have any questions at the moment and does not plan to participate in IDt at the moment. Noted.
--- NOTE | 2019-11-21 16:07 | NUR ---
Facility Protocols: Per Director's request, this SW called the patient's sister/DPOA, Beckie Chu [phone] to update her regarding the facility's protocols pertaining to the ongoing COVID-19 pandemic. SW informed the family that essential infection control practices continue to be updated and implemented in our facility. SW informed the family that the visitation restrictions will remain in place until otherwise stated by The Department of Public Health. SW reminded Beckie of alternative means of communication including Zoom video calls, calling our facility and [facility]. Family will be updated if any changes occur.
--- NOTE | 2019-11-21 19:09 | NUR ---
Removed right femoral catheter as ordered. Pt tolerated procedure well. No bleeding noted. Catheter tip intact. Notified Beckie. She expressed appreciation.
[2019-11-21] MEDS: ASCORBIC ACID 500 MG TABLET GT SCH (20:39)
[2019-11-21 20:42] VITALS: BP 138/74
[2019-11-21] MEDS: INSULIN GLARGINE, 100 UNIT/ML CARTRIDGE SQ SCH (21:13)
[2019-11-22] MEDS: METOCLOPRAMIDE HCL 10 MG/10 ML UDC GT SCH ×4 (00:36→17:14)
[2019-11-22] MEDS: OMEPRAZOLE 20 MG CAPSULE.DR GT SCH (05:33)
[2019-11-22] MEDS: GABAPENTIN 300 MG CAPSULE GT SCH ×3 (05:33→20:45)
[2019-11-22 07:39] VITALS: BP 136/60
[2019-11-22] MEDS: ZINC OXIDE 30 GM TUBE TP SCH ×2 (09:00→20:48)
[2019-11-22] MEDS: HYDROGEN PEROXIDE 480 ML BOTTLE TP SCH ×2 (09:00→21:00)
[2019-11-22] MEDS: BLOOD SUGAR DIAGNOSTIC 1 EACH STRIP IN SCH ×2 (09:00→20:47)
[2019-11-22] MEDS: OXCARBAZEPINE 150 MG TABLET GT SCH ×2 (09:00→20:46)
[2019-11-22] MEDS: SIMETHICONE SUSP 40 MG/0.6 ML BOTTLE GT SCH ×2 (09:00→20:45)
[2019-11-22] MEDS: SENNOSIDES 8.6 MG TABLET GT SCH ×2 (09:00→20:46)
[2019-11-22] MEDS: LEVETIRACETAM SOL (5 ML) 100 MG/ML UDC GT SCH ×2 (09:00→20:42)
[2019-11-22] MEDS: DOCUSATE SODIUM LIQ 100 MG/10 ML UDC GT SCH (09:00)
[2019-11-22] MEDS: ACIDOPHILUS/BULGARICUS 1 EACH TAB.CHEW GT SCH ×2 (09:00→17:14)
[2019-11-22] MEDS: MULTIVIT W/MINERALS 1 TAB TABLET GT SCH (09:00)
[2019-11-22] MEDS: Z GUARD REMEDY 2 OZ OINT TP SCH ×2 (09:00→20:48)
--- NOTE | 2019-11-22 17:10 | NUR ---
Dr Rodriges called. She asked if GI is still following pt. Informed her that GI is not following pt anymore and GI has not ordered anything for pt at this time. She said to just do blood transfusions as needed.
[2019-11-22] MEDS: GLUCERNA 1.2 1,000 ML BOTTLE NG PRN (17:15)
[2019-11-22] MEDS: ASCORBIC ACID 500 MG TABLET GT SCH (20:46)
[2019-11-22 20:55] VITALS: BP 161/78
[2019-11-22] MEDS: INSULIN REGULAR, HUMAN 100 UNIT/ML 3 ML VIAL SQ PRN (20:56)
[2019-11-22] MEDS: INSULIN GLARGINE, 100 UNIT/ML CARTRIDGE SQ SCH (22:18)
[2019-11-23] MEDS: METOCLOPRAMIDE HCL 10 MG/10 ML UDC GT SCH ×5 (00:43→23:20)
[2019-11-23] MEDS: GABAPENTIN 300 MG CAPSULE GT SCH ×3 (05:33→21:37)
[2019-11-23] MEDS: OMEPRAZOLE 20 MG CAPSULE.DR GT SCH (05:33)
[2019-11-23 07:32] LABS: ALBUMIN 2.7 g/dL (3.4-5.0); BILIRUBIN,TOTAL 0.2 mg/dL (0.2-1.0); CALCIUM, SERUM 10.8 mg/dL (8.5-10.1); CREATININE 3.3 mg/dL (0.6-1.3); MAGNESIUM 2.8 mg/dL (1.8-2.4); PHOSPHORUS 6.4 mg/dL (2.5-4.9); POTASSIUM 4.5 mmol/L (3.5-5.1); TOTAL PROTEIN, SERUM 10.2 g/dL (6.4-8.2)
[2019-11-23 07:34] VITALS: BP 117/68
[2019-11-23 07:35] LABS: BASOPHILS % (AUTO) 0.6 % (0.0-2.0); EOSINOPHILS % (AUTO) 7.3 % (0.0-6.0); HEMATOCRIT 26 % (33-45); HEMOGLOBIN 8.7 g/dL (11.5-14.8); LYMPHOCYTES # (AUTO) 1.3 /CMM (0.8-4.8); LYMPHOCYTES % (AUTO) 17.6 % (20.0-44.0); MEAN CORPUSCULAR HGB CONC 33 g/dl (31.0-36.0); MEAN CORPUSCULAR VOLUME 100 fL (82-100); MONOCYTES # (AUTO) 0.7 /CMM (0.1-1.30); MONOCYTES % (AUTO) 10.2 % (2.0-12.0); NEUTROPHILS # (AUTO) 4.7 /CMM (1.8-8.9); NEUTROPHILS % (AUTO) 64.3 % (43.0-81.0); PLATELET COUNT (AUTO) 397 /CMM (150-450); RED BLOOD CELL COUNT(AUTO) 2.61 MIL/uL (4.0-5.2); WHITE BLOOD COUNT (AUTO) 7.3 K/uL (4.3-11.0)
[2019-11-23] MEDS: HYDROGEN PEROXIDE 480 ML BOTTLE TP SCH ×2 (09:28→21:00)
--- NOTE | 2019-11-23 09:40 | NUR ---
Reported CBC, CMP, Mg and Phos level with Na+127, and creat 3.3, no new order given at this time but said that he will be in shortly.
[2019-11-23] MEDS: SIMETHICONE SUSP 40 MG/0.6 ML BOTTLE GT SCH ×2 (09:57→21:37)
[2019-11-23] MEDS: ACIDOPHILUS/BULGARICUS 1 EACH TAB.CHEW GT SCH ×2 (09:57→17:42)
[2019-11-23] MEDS: LEVETIRACETAM SOL (5 ML) 100 MG/ML UDC GT SCH ×2 (09:57→21:37)
[2019-11-23] MEDS: MULTIVIT W/MINERALS 1 TAB TABLET GT SCH (09:57)
[2019-11-23] MEDS: Z GUARD REMEDY 2 OZ OINT TP SCH ×2 (09:57→21:37)
[2019-11-23] MEDS: SENNOSIDES 8.6 MG TABLET GT SCH ×2 (09:57→21:37)
[2019-11-23] MEDS: ZINC OXIDE 30 GM TUBE TP SCH ×2 (09:57→21:37)
[2019-11-23] MEDS: DOCUSATE SODIUM LIQ 100 MG/10 ML UDC GT SCH (09:57)
[2019-11-23] MEDS: BLOOD SUGAR DIAGNOSTIC 1 EACH STRIP IN SCH ×2 (09:57→21:37)
[2019-11-23] MEDS: OXCARBAZEPINE 150 MG TABLET GT SCH ×2 (09:57→21:37)
[2019-11-23] MEDS: INSULIN REGULAR, HUMAN 100 UNIT/ML 3 ML VIAL SQ PRN ×2 (09:58→21:39)
[2019-11-23 20:16] VITALS: BP 125/74
[2019-11-23] MEDS: ASCORBIC ACID 500 MG TABLET GT SCH (21:37)
[2019-11-23] MEDS: INSULIN GLARGINE, 100 UNIT/ML CARTRIDGE SQ SCH (21:38)
--- NOTE | 2019-11-23 22:21 | NUR ---
Received call from Dr. Rodriges regarding labs results she said pt is negative with cancer. She said also will call the labs in AM to follow some results.
[2019-11-24] MEDS: OMEPRAZOLE 20 MG CAPSULE.DR GT SCH (05:51)
[2019-11-24] MEDS: METOCLOPRAMIDE HCL 10 MG/10 ML UDC GT SCH ×4 (05:51→23:24)
[2019-11-24] MEDS: GABAPENTIN 300 MG CAPSULE GT SCH ×3 (05:51→20:27)
[2019-11-24 06:42] LABS: HEMOGLOBIN 8.7 g/dL (11.5-14.8)
[2019-11-24 07:27] VITALS: BP 136/56
[2019-11-24] MEDS: HYDROGEN PEROXIDE 480 ML BOTTLE TP SCH ×2 (08:34→20:03)
[2019-11-24] MEDS: OXCARBAZEPINE 150 MG TABLET GT SCH ×2 (09:00→20:27)
[2019-11-24] MEDS: BLOOD SUGAR DIAGNOSTIC 1 EACH STRIP IN SCH ×2 (09:00→21:11)
[2019-11-24] MEDS: Z GUARD REMEDY 2 OZ OINT TP SCH (09:00)
[2019-11-24] MEDS: SIMETHICONE SUSP 40 MG/0.6 ML BOTTLE GT SCH ×2 (09:00→20:27)
[2019-11-24] MEDS: SENNOSIDES 8.6 MG TABLET GT SCH ×2 (09:00→20:27)
[2019-11-24] MEDS: LEVETIRACETAM SOL (5 ML) 100 MG/ML UDC GT SCH ×2 (09:00→20:27)
[2019-11-24] MEDS: MULTIVIT W/MINERALS 1 TAB TABLET GT SCH (09:00)
[2019-11-24] MEDS: ZINC OXIDE 30 GM TUBE TP SCH ×2 (09:00→20:28)
[2019-11-24] MEDS: ACIDOPHILUS/BULGARICUS 1 EACH TAB.CHEW GT SCH ×2 (09:00→17:16)
[2019-11-24] MEDS: DOCUSATE SODIUM LIQ 100 MG/10 ML UDC GT SCH (09:00)
[2019-11-24] MEDS: EPOETIN ALFA (4000 UNIT) 4,000 UNIT/ML VIAL SQ SCH (15:00)
[2019-11-24] MEDS: GLUCERNA 1.2 1,000 ML BOTTLE NG PRN ×2 (17:17→21:12)
[2019-11-24] MEDS: Z GUARD REMEDY 4 OZ OINT TP SCH (20:28)
[2019-11-24] MEDS: ASCORBIC ACID 500 MG TABLET GT SCH (20:28)
[2019-11-24 20:43] VITALS: BP 143/75
[2019-11-24] MEDS: INSULIN GLARGINE, 100 UNIT/ML CARTRIDGE SQ SCH (21:11)
[2019-11-25] MEDS: GABAPENTIN 300 MG CAPSULE GT SCH ×3 (05:04→20:47)
[2019-11-25] MEDS: OMEPRAZOLE 20 MG CAPSULE.DR GT SCH (05:04)
[2019-11-25] MEDS: METOCLOPRAMIDE HCL 10 MG/10 ML UDC GT SCH ×4 (05:04→23:21)
[2019-11-25 07:33] VITALS: BP 145/83
[2019-11-25] MEDS: HYDROGEN PEROXIDE 480 ML BOTTLE TP SCH ×2 (08:02→19:56)
[2019-11-25] MEDS: SIMETHICONE SUSP 40 MG/0.6 ML BOTTLE GT SCH ×2 (09:42→20:47)
[2019-11-25] MEDS: MULTIVIT W/MINERALS 1 TAB TABLET GT SCH (09:42)
[2019-11-25] MEDS: ACIDOPHILUS/BULGARICUS 1 EACH TAB.CHEW GT SCH ×2 (09:42→17:27)
[2019-11-25] MEDS: LEVETIRACETAM SOL (5 ML) 100 MG/ML UDC GT SCH ×2 (09:42→20:47)
[2019-11-25] MEDS: SENNOSIDES 8.6 MG TABLET GT SCH ×2 (09:42→20:47)
[2019-11-25] MEDS: DOCUSATE SODIUM LIQ 100 MG/10 ML UDC GT SCH (09:42)
[2019-11-25] MEDS: OXCARBAZEPINE 150 MG TABLET GT SCH ×2 (09:43→20:47)
[2019-11-25] MEDS: BLOOD SUGAR DIAGNOSTIC 1 EACH STRIP IN SCH ×2 (09:52→21:12)
[2019-11-25] MEDS: ZINC OXIDE 30 GM TUBE TP SCH ×2 (09:54→20:48)
[2019-11-25] MEDS: Z GUARD REMEDY 4 OZ OINT TP SCH ×2 (09:54→20:47)
--- NOTE | 2019-11-25 15:45 | NUR ---
INTERDISCIPLINARY PLAN OF CARE CONFERENCE was held today. The patients conservator, Beckie Chu [phone] was unable to participate in IDT meeting. Charge nurse discussed 11/12 GI Consult ; 11/13/ D/C Heparin; 11/17/19 CHEM-7; 11/20 D/C Femoral line. Dr. Felix and Interdisciplinary team discussed the plan of care in detail. Current orders as well as treatments and medications were reviewed. See other disciplines IDT notes for further details.
[2019-11-25] MEDS: GLUCERNA 1.2 1,000 ML BOTTLE NG PRN (16:21)
--- NOTE | 2019-11-25 18:00 | NUR ---
Seen and examined by NAN Vargas, no new order given.
[2019-11-25] MEDS: ASCORBIC ACID 500 MG TABLET GT SCH (20:47)
[2019-11-25] MEDS: INSULIN GLARGINE, 100 UNIT/ML CARTRIDGE SQ SCH (21:12)
[2019-11-26] MEDS: OMEPRAZOLE 20 MG CAPSULE.DR GT SCH (05:12)
[2019-11-26] MEDS: GABAPENTIN 300 MG CAPSULE GT SCH ×3 (05:12→20:34)
[2019-11-26] MEDS: METOCLOPRAMIDE HCL 10 MG/10 ML UDC GT SCH ×4 (05:12→23:15)
[2019-11-26] MEDS: BISACODYL SUPP (10 MG) 10 MG/SUPP.RECT SUPP.RECT RC PRN (05:44)
[2019-11-26] MEDS: Z GUARD REMEDY 4 OZ OINT TP SCH ×2 (09:00→20:35)
[2019-11-26] MEDS: ACIDOPHILUS/BULGARICUS 1 EACH TAB.CHEW GT SCH ×2 (09:00→17:36)
[2019-11-26] MEDS: OXCARBAZEPINE 150 MG TABLET GT SCH ×2 (09:00→20:35)
[2019-11-26] MEDS: SENNOSIDES 8.6 MG TABLET GT SCH ×2 (09:00→20:34)
[2019-11-26] MEDS: LEVETIRACETAM SOL (5 ML) 100 MG/ML UDC GT SCH ×2 (09:00→20:34)
[2019-11-26] MEDS: MULTIVIT W/MINERALS 1 TAB TABLET GT SCH (09:00)
[2019-11-26] MEDS: DOCUSATE SODIUM LIQ 100 MG/10 ML UDC GT SCH (09:00)
[2019-11-26] MEDS: ZINC OXIDE 30 GM TUBE TP SCH ×2 (09:00→20:35)
[2019-11-26] MEDS: HYDROGEN PEROXIDE 480 ML BOTTLE TP SCH ×2 (09:00→20:04)
[2019-11-26] MEDS: SIMETHICONE SUSP 40 MG/0.6 ML BOTTLE GT SCH ×2 (09:00→20:34)
[2019-11-26] MEDS: BLOOD SUGAR DIAGNOSTIC 1 EACH STRIP IN SCH ×2 (09:00→21:02)
[2019-11-26] MEDS: INSULIN REGULAR, HUMAN 100 UNIT/ML 3 ML VIAL SQ PRN (10:32)
[2019-11-26 11:33] VITALS: BP 136/78
[2019-11-26 19:30] VITALS: BP 146/74
[2019-11-26] MEDS: ASCORBIC ACID 500 MG TABLET GT SCH (20:35)
[2019-11-26] MEDS: INSULIN GLARGINE, 100 UNIT/ML CARTRIDGE SQ SCH (21:03)
[2019-11-27] MEDS: GLUCERNA 1.2 1,000 ML BOTTLE NG PRN ×2 (05:00→17:40)
[2019-11-27] MEDS: GABAPENTIN 300 MG CAPSULE GT SCH ×3 (05:00→20:18)
[2019-11-27] MEDS: METOCLOPRAMIDE HCL 10 MG/10 ML UDC GT SCH ×3 (05:00→17:20)
[2019-11-27] MEDS: OMEPRAZOLE 20 MG CAPSULE.DR GT SCH (05:00)
[2019-11-27 06:30] LABS: BASOPHILS # (AUTO) 0.1 /CMM (0.0-0.2); BASOPHILS % (AUTO) 0.6 % (0.0-2.0); HEMATOCRIT 25 % (33-45); HEMOGLOBIN 8.7 g/dL (11.5-14.8); LYMPHOCYTES # (AUTO) 1.8 /CMM (0.8-4.8); MEAN CORPUSCULAR HGB CONC 34 g/dl (31.0-36.0); MEAN CORPUSCULAR VOLUME 100 fL (82-100); MONOCYTES # (AUTO) 0.8 /CMM (0.1-1.30); NEUTROPHILS # (AUTO) 5.7 /CMM (1.8-8.9); NEUTROPHILS % (AUTO) 62.4 % (43.0-81.0); PLATELET COUNT (AUTO) 349 /CMM (150-450); RED BLOOD CELL COUNT(AUTO) 2.55 MIL/uL (4.0-5.2); WHITE BLOOD COUNT (AUTO) 9.2 K/uL (4.3-11.0)
[2019-11-27 06:39] LABS: CALCIUM, SERUM 10.6 mg/dL (8.5-10.1); CREATININE 3.4 mg/dL (0.6-1.3)
[2019-11-27 07:39] VITALS: BP 138/56
[2019-11-27] MEDS: HYDROGEN PEROXIDE 480 ML BOTTLE TP SCH ×2 (08:21→21:50)
[2019-11-27] MEDS: DOCUSATE SODIUM LIQ 100 MG/10 ML UDC GT SCH (09:43)
[2019-11-27] MEDS: BLOOD SUGAR DIAGNOSTIC 1 EACH STRIP IN SCH ×2 (09:44→20:23)
[2019-11-27] MEDS: SENNOSIDES 8.6 MG TABLET GT SCH ×2 (09:44→20:20)
[2019-11-27] MEDS: ACIDOPHILUS/BULGARICUS 1 EACH TAB.CHEW GT SCH ×2 (09:44→17:20)
[2019-11-27] MEDS: SIMETHICONE SUSP 40 MG/0.6 ML BOTTLE GT SCH ×2 (09:44→20:18)
[2019-11-27] MEDS: Z GUARD REMEDY 4 OZ OINT TP SCH ×2 (09:44→20:23)
[2019-11-27] MEDS: LEVETIRACETAM SOL (5 ML) 100 MG/ML UDC GT SCH ×2 (09:44→20:16)
[2019-11-27] MEDS: ZINC OXIDE 30 GM TUBE TP SCH ×2 (09:44→20:23)
[2019-11-27] MEDS: OXCARBAZEPINE 150 MG TABLET GT SCH ×2 (09:44→20:20)
[2019-11-27] MEDS: MULTIVIT W/MINERALS 1 TAB TABLET GT SCH (09:44)
--- NOTE | 2019-11-27 16:01 | NUR ---
RT NOTE RECEIVED PATIENT ON MECHANICAL VENT WITH ORDERED SETTINGS, ALARMS ON AND AUDIBLE. VENT PLUGGED IN TO THE RED OUTLET. AMBU BAG AND BACK UP TRACH BY THE BEDSIDE. TRACH TUBE IN PLACE, PATENT, AND SECURED WITH TRACH TIE. NO DISTRESS AT THIS TIME. MONITOR THROUGHOUT SHIFT.
[2019-11-27] MEDS: ASCORBIC ACID 500 MG TABLET GT SCH (20:20)
[2019-11-27] MEDS: INSULIN REGULAR, HUMAN 100 UNIT/ML 3 ML VIAL SQ PRN (20:25)
[2019-11-27 20:34] VITALS: BP 153/74
[2019-11-27] MEDS: INSULIN GLARGINE, 100 UNIT/ML CARTRIDGE SQ SCH (21:46)
[2019-11-28] MEDS: METOCLOPRAMIDE HCL 10 MG/10 ML UDC GT SCH ×5 (00:11→23:39)
[2019-11-28] MEDS: GABAPENTIN 300 MG CAPSULE GT SCH ×3 (05:02→20:47)
[2019-11-28] MEDS: OMEPRAZOLE 20 MG CAPSULE.DR GT SCH (05:03)
[2019-11-28 07:30] LABS: HEMOGLOBIN 8.5 g/dL (11.5-14.8)
[2019-11-28 07:38] VITALS: BP 140/73
[2019-11-28] MEDS: SENNOSIDES 8.6 MG TABLET GT SCH ×2 (09:00→20:48)
[2019-11-28] MEDS: Z GUARD REMEDY 4 OZ OINT TP SCH ×2 (09:00→20:48)
[2019-11-28] MEDS: ACIDOPHILUS/BULGARICUS 1 EACH TAB.CHEW GT SCH ×2 (09:00→16:49)
[2019-11-28] MEDS: DOCUSATE SODIUM LIQ 100 MG/10 ML UDC GT SCH (09:00)
[2019-11-28] MEDS: HYDROGEN PEROXIDE 480 ML BOTTLE TP SCH ×2 (09:00→20:48)
[2019-11-28] MEDS: BLOOD SUGAR DIAGNOSTIC 1 EACH STRIP IN SCH ×2 (09:00→20:56)
[2019-11-28] MEDS: ZINC OXIDE 30 GM TUBE TP SCH ×2 (09:00→20:48)
[2019-11-28] MEDS: LEVETIRACETAM SOL (5 ML) 100 MG/ML UDC GT SCH ×2 (09:00→20:47)
[2019-11-28] MEDS: MULTIVIT W/MINERALS 1 TAB TABLET GT SCH (09:00)
[2019-11-28] MEDS: SIMETHICONE SUSP 40 MG/0.6 ML BOTTLE GT SCH ×2 (09:00→20:47)
[2019-11-28] MEDS: INSULIN REGULAR, HUMAN 100 UNIT/ML 3 ML VIAL SQ PRN (10:48)
[2019-11-28] MEDS: OXCARBAZEPINE 150 MG TABLET GT SCH ×2 (13:30→20:48)
[2019-11-28] MEDS: EPOETIN ALFA (4000 UNIT) 4,000 UNIT/ML VIAL SQ SCH (15:00)
[2019-11-28 20:23] VITALS: BP 136/70
[2019-11-28] MEDS: ASCORBIC ACID 500 MG TABLET GT SCH (20:48)
[2019-11-28] MEDS: INSULIN GLARGINE, 100 UNIT/ML CARTRIDGE SQ SCH (21:11)
[2019-11-28 22:00] VITALS: BP 136/70
[2019-11-29] MEDS: GLUCERNA 1.2 1,000 ML BOTTLE NG PRN (02:24)
[2019-11-29] MEDS: METOCLOPRAMIDE HCL 10 MG/10 ML UDC GT SCH ×3 (05:04→17:36)
[2019-11-29] MEDS: OMEPRAZOLE 20 MG CAPSULE.DR GT SCH (05:04)
[2019-11-29] MEDS: GABAPENTIN 300 MG CAPSULE GT SCH ×3 (05:04→20:04)
[2019-11-29 07:38] VITALS: BP 122/72
[2019-11-29] MEDS: MULTIVIT W/MINERALS 1 TAB TABLET GT SCH (08:41)
[2019-11-29] MEDS: DOCUSATE SODIUM LIQ 100 MG/10 ML UDC GT SCH (08:41)
[2019-11-29] MEDS: OXCARBAZEPINE 150 MG TABLET GT SCH ×2 (08:41→20:05)
[2019-11-29] MEDS: SENNOSIDES 8.6 MG TABLET GT SCH ×2 (08:41→20:06)
[2019-11-29] MEDS: SIMETHICONE SUSP 40 MG/0.6 ML BOTTLE GT SCH ×2 (08:41→20:06)
[2019-11-29] MEDS: LEVETIRACETAM SOL (5 ML) 100 MG/ML UDC GT SCH ×2 (08:41→20:03)
[2019-11-29] MEDS: ACIDOPHILUS/BULGARICUS 1 EACH TAB.CHEW GT SCH ×2 (08:41→17:36)
[2019-11-29] MEDS: HYDROGEN PEROXIDE 480 ML BOTTLE TP SCH ×2 (09:00→21:00)
[2019-11-29] MEDS: Z GUARD REMEDY 4 OZ OINT TP SCH ×2 (09:20→20:07)
[2019-11-29] MEDS: BLOOD SUGAR DIAGNOSTIC 1 EACH STRIP IN SCH ×2 (09:20→20:06)
[2019-11-29] MEDS: INSULIN REGULAR, HUMAN 100 UNIT/ML 3 ML VIAL SQ PRN ×2 (09:21→20:15)
[2019-11-29 19:57] VITALS: BP 140/67
[2019-11-29] MEDS: ASCORBIC ACID 500 MG TABLET GT SCH (20:06)
[2019-11-29] MEDS: INSULIN GLARGINE, 100 UNIT/ML CARTRIDGE SQ SCH (21:43)
[2019-11-30] MEDS: METOCLOPRAMIDE HCL 10 MG/10 ML UDC GT SCH ×5 (00:03→23:38)
[2019-11-30] MEDS: GLUCERNA 1.2 1,000 ML BOTTLE NG PRN (03:40)
[2019-11-30] MEDS: GABAPENTIN 300 MG CAPSULE GT SCH ×3 (05:02→20:43)
[2019-11-30] MEDS: OMEPRAZOLE 20 MG CAPSULE.DR GT SCH (05:03)
[2019-11-30 07:36] VITALS: BP 130/65
[2019-11-30] MEDS: HYDROGEN PEROXIDE 480 ML BOTTLE TP SCH ×2 (08:45→21:00)
[2019-11-30] MEDS: DOCUSATE SODIUM LIQ 100 MG/10 ML UDC GT SCH (09:09)
[2019-11-30] MEDS: SIMETHICONE SUSP 40 MG/0.6 ML BOTTLE GT SCH ×2 (09:10→20:43)
[2019-11-30] MEDS: MULTIVIT W/MINERALS 1 TAB TABLET GT SCH (09:10)
[2019-11-30] MEDS: SENNOSIDES 8.6 MG TABLET GT SCH ×2 (09:10→20:43)
[2019-11-30] MEDS: OXCARBAZEPINE 150 MG TABLET GT SCH ×2 (09:10→20:43)
[2019-11-30] MEDS: ACIDOPHILUS/BULGARICUS 1 EACH TAB.CHEW GT SCH ×2 (09:10→16:44)
[2019-11-30] MEDS: LEVETIRACETAM SOL (5 ML) 100 MG/ML UDC GT SCH ×2 (09:10→20:43)
[2019-11-30] MEDS: Z GUARD REMEDY 4 OZ OINT TP SCH ×2 (09:11→20:43)
[2019-11-30] MEDS: BLOOD SUGAR DIAGNOSTIC 1 EACH STRIP IN SCH ×2 (09:26→21:01)
[2019-11-30] MEDS: INSULIN REGULAR, HUMAN 100 UNIT/ML 3 ML VIAL SQ PRN (09:26)
--- NOTE | 2019-11-30 16:00 | NUR ---
Seen and examined by NAN Vargas, no new order.
[2019-11-30 19:47] VITALS: BP 142/99
[2019-11-30] MEDS: ASCORBIC ACID 500 MG TABLET GT SCH (20:43)
[2019-11-30] MEDS: INSULIN GLARGINE, 100 UNIT/ML CARTRIDGE SQ SCH (21:01)
[2019-12-01] MEDS: OMEPRAZOLE 20 MG CAPSULE.DR GT SCH (06:00)
[2019-12-01 07:32] VITALS: BP 135/85
[2019-12-01 07:44] LABS: HEMOGLOBIN 9.4 g/dL (11.5-14.8)
[2019-12-01] MEDS: LEVETIRACETAM SOL (5 ML) 100 MG/ML UDC GT SCH ×2 (09:00→20:20)
[2019-12-01] MEDS: SENNOSIDES 8.6 MG TABLET GT SCH ×2 (09:00→20:20)
[2019-12-01] MEDS: MULTIVIT W/MINERALS 1 TAB TABLET GT SCH (09:00)
[2019-12-01] MEDS: ACIDOPHILUS/BULGARICUS 1 EACH TAB.CHEW GT SCH ×2 (09:00→17:00)
[2019-12-01] MEDS: SIMETHICONE SUSP 40 MG/0.6 ML BOTTLE GT SCH ×2 (09:00→20:20)
[2019-12-01] MEDS: HYDROGEN PEROXIDE 480 ML BOTTLE TP SCH ×2 (09:00→20:30)
[2019-12-01] MEDS: DOCUSATE SODIUM LIQ 100 MG/10 ML UDC GT SCH (09:00)
[2019-12-01] MEDS: OXCARBAZEPINE 150 MG TABLET GT SCH ×2 (09:00→20:20)
[2019-12-01] MEDS: BLOOD SUGAR DIAGNOSTIC 1 EACH STRIP IN SCH ×2 (09:00→21:08)
[2019-12-01] MEDS: Z GUARD REMEDY 4 OZ OINT TP SCH ×2 (09:00→20:20)
[2019-12-01] MEDS: INSULIN REGULAR, HUMAN 100 UNIT/ML 3 ML VIAL SQ PRN (10:31)
[2019-12-01] MEDS: GABAPENTIN 300 MG CAPSULE GT SCH ×2 (12:33→20:20)
[2019-12-01] MEDS: METOCLOPRAMIDE HCL 10 MG/10 ML UDC GT SCH ×3 (12:33→23:31)
[2019-12-01] MEDS: EPOETIN ALFA (4000 UNIT) 4,000 UNIT/ML VIAL SQ SCH (15:38)
--- NOTE | 2019-12-01 18:53 | NUR ---
Spoke with pt's sister Beckie, informed her that pt will be tested for Covid-19. Pt asymptomatic at this time. Also informed Beckie that pt will be moved to Room 277-2 since pt's current room will be needed for isolation, pt not on isolation at this time.
[2019-12-01 19:39] VITALS: BP 126/58
[2019-12-01] MEDS: ASCORBIC ACID 500 MG TABLET GT SCH (20:20)
[2019-12-01] MEDS: INSULIN GLARGINE, 100 UNIT/ML CARTRIDGE SQ SCH (21:09)
[2019-12-02] MEDS: METOCLOPRAMIDE HCL 10 MG/10 ML UDC GT SCH ×4 (05:23→23:30)
[2019-12-02] MEDS: OMEPRAZOLE 20 MG CAPSULE.DR GT SCH (05:23)
[2019-12-02] MEDS: GABAPENTIN 300 MG CAPSULE GT SCH ×3 (05:23→20:22)
[2019-12-02 07:37] VITALS: BP 127/70
[2019-12-02] MEDS: DOCUSATE SODIUM LIQ 100 MG/10 ML UDC GT SCH (08:43)
[2019-12-02] MEDS: LEVETIRACETAM SOL (5 ML) 100 MG/ML UDC GT SCH ×2 (08:43→20:22)
[2019-12-02] MEDS: SIMETHICONE SUSP 40 MG/0.6 ML BOTTLE GT SCH ×2 (08:43→20:22)
[2019-12-02] MEDS: ACIDOPHILUS/BULGARICUS 1 EACH TAB.CHEW GT SCH ×2 (08:43→17:20)
[2019-12-02] MEDS: Z GUARD REMEDY 4 OZ OINT TP SCH ×2 (08:44→20:22)
[2019-12-02] MEDS: INSULIN REGULAR, HUMAN 100 UNIT/ML 3 ML VIAL SQ PRN (08:44)
[2019-12-02] MEDS: BLOOD SUGAR DIAGNOSTIC 1 EACH STRIP IN SCH ×2 (08:44→20:57)
[2019-12-02] MEDS: SENNOSIDES 8.6 MG TABLET GT SCH ×2 (08:44→20:22)
[2019-12-02] MEDS: OXCARBAZEPINE 150 MG TABLET GT SCH ×2 (08:44→20:22)
[2019-12-02] MEDS: MULTIVIT W/MINERALS 1 TAB TABLET GT SCH (08:44)
[2019-12-02] MEDS: HYDROGEN PEROXIDE 480 ML BOTTLE TP SCH ×2 (09:00→20:15)
[2019-12-02] MEDS: GLUCERNA 1.2 1,000 ML BOTTLE NG PRN (11:12)
[2019-12-02 19:48] VITALS: BP 134/73
[2019-12-02] MEDS: ASCORBIC ACID 500 MG TABLET GT SCH (20:22)
[2019-12-02] MEDS: INSULIN GLARGINE, 100 UNIT/ML CARTRIDGE SQ SCH (21:03)
--- NOTE | 2019-12-02 21:38 | NUR ---
RT NOTE PT RECEIVED TRACHED ON MECHANICAL VENTILATION. CUFF CHECKED VIA ICEBOX MAN. AMBU BAG/BACK UP TRACH @ BEDSIDE. SX DONE, TRACH SECURED AND PATENT. ALARMS ON AND AUDIBLE. NO DISTRESS NOTED T/O SHIFT. CONT. PULSE OX CONNECTED. WILL CONTINUE TO MONITOR. Addendum: 12/02/19 at 2139 by BRIEN NEAL RT Amended: Links added.
[2019-12-03] MEDS: METOCLOPRAMIDE HCL 10 MG/10 ML UDC GT SCH ×3 (05:07→17:21)
[2019-12-03] MEDS: GABAPENTIN 300 MG CAPSULE GT SCH ×3 (05:07→20:19)
[2019-12-03] MEDS: OMEPRAZOLE 20 MG CAPSULE.DR GT SCH (05:07)
[2019-12-03 07:28] LABS: ALBUMIN 2.8 g/dL (3.4-5.0); BILIRUBIN,TOTAL 0.2 mg/dL (0.2-1.0); CALCIUM, SERUM 10.1 mg/dL (8.5-10.1); CREATININE 3.7 mg/dL (0.6-1.3); MAGNESIUM 3.2 mg/dL (1.8-2.4); PHOSPHORUS 5.8 mg/dL (2.5-4.9); TOTAL PROTEIN, SERUM 10.6 g/dL (6.4-8.2)
[2019-12-03 07:42] VITALS: BP 129/67
[2019-12-03] MEDS: HYDROGEN PEROXIDE 480 ML BOTTLE TP SCH ×2 (08:45→21:00)
[2019-12-03 08:48] LABS: BASOPHILS # (AUTO) 0.1 /CMM (0.0-0.2); BASOPHILS % (AUTO) 0.7 % (0.0-2.0); EOSINOPHILS % (AUTO) 6.3 % (0.0-6.0); HEMATOCRIT 29 % (33-45); HEMOGLOBIN 9.6 g/dL (11.5-14.8); LYMPHOCYTES # (AUTO) 2.3 /CMM (0.8-4.8); LYMPHOCYTES % (AUTO) 26.7 % (20.0-44.0); MEAN CORPUSCULAR HGB CONC 33 g/dl (31.0-36.0); MEAN CORPUSCULAR VOLUME 101 fL (82-100); MONOCYTES % (AUTO) 11.1 % (2.0-12.0); NEUTROPHILS # (AUTO) 4.8 /CMM (1.8-8.9); NEUTROPHILS % (AUTO) 55.2 % (43.0-81.0); PLATELET COUNT (AUTO) 262 /CMM (150-450); RED BLOOD CELL COUNT(AUTO) 2.88 MIL/uL (4.0-5.2); WHITE BLOOD COUNT (AUTO) 8.6 K/uL (4.3-11.0)
[2019-12-03] MEDS: DOCUSATE SODIUM LIQ 100 MG/10 ML UDC GT SCH (09:48)
[2019-12-03] MEDS: LEVETIRACETAM SOL (5 ML) 100 MG/ML UDC GT SCH ×2 (09:49→20:19)
[2019-12-03] MEDS: OXCARBAZEPINE 150 MG TABLET GT SCH ×2 (09:49→20:19)
[2019-12-03] MEDS: SIMETHICONE SUSP 40 MG/0.6 ML BOTTLE GT SCH ×2 (09:49→20:19)
[2019-12-03] MEDS: ACIDOPHILUS/BULGARICUS 1 EACH TAB.CHEW GT SCH ×2 (09:49→17:21)
[2019-12-03] MEDS: MULTIVIT W/MINERALS 1 TAB TABLET GT SCH (09:49)
[2019-12-03] MEDS: SENNOSIDES 8.6 MG TABLET GT SCH ×2 (09:49→20:19)
[2019-12-03] MEDS: BLOOD SUGAR DIAGNOSTIC 1 EACH STRIP IN SCH ×2 (09:51→21:03)
[2019-12-03] MEDS: INSULIN REGULAR, HUMAN 100 UNIT/ML 3 ML VIAL SQ PRN (09:54)
[2019-12-03] MEDS: Z GUARD REMEDY 4 OZ OINT TP SCH ×2 (09:54→20:20)
[2019-12-03] MEDS: NEOMY SULF/BACITRAC ZN/POLY 15 GM TUBE TP SCH ×2 (09:56→20:19)
--- NOTE | 2019-12-03 10:03 | NUR ---
Relayed CBC, CMP, Mg and Phos level to Dr. Kumar, according to MD he will be in shortly to review results.
--- NOTE | 2019-12-03 15:30 | NUR ---
Noted an order from Dr. Kumar for labs in AM, urine creat, urine Eosinophil, urine Na and total protein in the urine. Orders carried out.
[2019-12-03 16:31] LABS: APPEARANCE,URINE SL CLOUDY (CLEAR); BILIRUBIN,URINE NEGATIVE (NEGATIVE); BLOOD, URINE MODERATE Ery/uL (NEGATIVE); COLOR,URINE YELLOW (YELLOW); KETONES,URINE NEGATIVE (NEGATIVE); LEUKOCYTE ESTERASE ,URINE LARGE (NEGATIVE); NITRITE, URINE POSITIVE (NEGATIVE); PH,URINE 7.5 (5.0-8.0); PROTEIN,URINE >=300 mg/dl (NEGATIVE); UGLUCOSE NEGATIVE (NEGATIVE); UROBILINOGEN,URINE 0.2 EU/dL (0.2)
[2019-12-03 16:57] LABS: RBC,URINE 21-50 /HPF (0-2)
[2019-12-03 16:58] LABS: BACTERIA,URINE 4+ /HPF (None Seen); SQUAMOUS EPITHELIAL CELL,UR 0-2 /HPF (None Seen); WBC,URINE 21-50 /HPF (0-3)
--- NOTE | 2019-12-03 17:00 | NUR ---
Informed Beckie, patient's sister that Covid-19 test result is negative. She was also made aware that supervisor beam department is following the patient with order for CBC, CMP, Mg and Phos in AM and urine creat, Na total protein, eosinophil and UA due to elevated Creat and BUN level. Advised that if she has questions to give Dr. Luis a call. When asked if she had spoken to , she said that she has not called him yet but will do so soon. Appreciated the call.
[2019-12-03 17:06] LABS: EOSINOPHIL,URINE Few
[2019-12-03 18:16] LABS: CREATININE, URINE 29.9 MG/DL (30.0-125.0)
[2019-12-03 18:31] LABS: URINE TOTAL PROTEIN 328.1 mg/dL (0-11.9)
[2019-12-03] MEDS: GLUCERNA 1.2 1,000 ML BOTTLE NG PRN (18:55)
[2019-12-03] MEDS: ASCORBIC ACID 500 MG TABLET GT SCH (20:19)
[2019-12-03] MEDS: INSULIN GLARGINE, 100 UNIT/ML CARTRIDGE SQ SCH (21:04)
[2019-12-03 21:05] VITALS: BP 120/72
[2019-12-04] MEDS: GABAPENTIN 300 MG CAPSULE GT SCH ×3 (05:15→21:09)
[2019-12-04] MEDS: OMEPRAZOLE 20 MG CAPSULE.DR GT SCH (05:15)
[2019-12-04] MEDS: METOCLOPRAMIDE HCL 10 MG/10 ML UDC GT SCH ×4 (05:15→18:15)
[2019-12-04 07:49] VITALS: BP 150/77
[2019-12-04 08:53] LABS: BASOPHILS % (AUTO) 0.7 % (0.0-2.0); EOSINOPHILS % (AUTO) 8.5 % (0.0-6.0); HEMATOCRIT 30 % (33-45); HEMOGLOBIN 9.9 g/dL (11.5-14.8); LYMPHOCYTES # (AUTO) 1.7 /CMM (0.8-4.8); LYMPHOCYTES % (AUTO) 26.4 % (20.0-44.0); MEAN CORPUSCULAR HGB CONC 34 g/dl (31.0-36.0); MEAN CORPUSCULAR VOLUME 100 fL (82-100); MONOCYTES # (AUTO) 0.7 /CMM (0.1-1.30); MONOCYTES % (AUTO) 10.3 % (2.0-12.0); NEUTROPHILS # (AUTO) 3.6 /CMM (1.8-8.9); NEUTROPHILS % (AUTO) 54.1 % (43.0-81.0); PLATELET COUNT (AUTO) 277 /CMM (150-450); RED BLOOD CELL COUNT(AUTO) 2.94 MIL/uL (4.0-5.2); WHITE BLOOD COUNT (AUTO) 6.6 K/uL (4.3-11.0)
[2019-12-04] MEDS: BLOOD SUGAR DIAGNOSTIC 1 EACH STRIP IN SCH ×2 (09:00→21:10)
[2019-12-04] MEDS: SENNOSIDES 8.6 MG TABLET GT SCH ×2 (09:00→21:09)
[2019-12-04] MEDS: HYDROGEN PEROXIDE 480 ML BOTTLE TP SCH ×2 (09:00→21:00)
[2019-12-04] MEDS: OXCARBAZEPINE 150 MG TABLET GT SCH ×2 (09:00→21:10)
[2019-12-04] MEDS: Z GUARD REMEDY 4 OZ OINT TP SCH ×2 (09:00→21:11)
[2019-12-04] MEDS: DOCUSATE SODIUM LIQ 100 MG/10 ML UDC GT SCH (09:00)
[2019-12-04] MEDS: LEVETIRACETAM SOL (5 ML) 100 MG/ML UDC GT SCH ×2 (09:00→21:08)
[2019-12-04] MEDS: NEOMY SULF/BACITRAC ZN/POLY 15 GM TUBE TP SCH ×2 (09:00→21:11)
[2019-12-04] MEDS: SIMETHICONE SUSP 40 MG/0.6 ML BOTTLE GT SCH ×2 (09:00→21:09)
[2019-12-04] MEDS: ACIDOPHILUS/BULGARICUS 1 EACH TAB.CHEW GT SCH ×2 (09:00→17:08)
[2019-12-04] MEDS: MULTIVIT W/MINERALS 1 TAB TABLET GT SCH (09:00)
[2019-12-04 09:48] LABS: POTASSIUM 3.7 mmol/L (3.5-5.1)
[2019-12-04 09:49] LABS: ALBUMIN 2.9 g/dL (3.4-5.0); BILIRUBIN,TOTAL 0.3 mg/dL (0.2-1.0); CALCIUM, SERUM 11.4 mg/dL (8.5-10.1); CREATININE 3.8 mg/dL (0.6-1.3); MAGNESIUM 3.1 mg/dL (1.8-2.4); PHOSPHORUS 5.6 mg/dL (2.5-4.9); TOTAL PROTEIN, SERUM 10.6 g/dL (6.4-8.2)
[2019-12-04] MEDS: INSULIN REGULAR, HUMAN 100 UNIT/ML 3 ML VIAL SQ PRN ×2 (11:17→21:14)
[2019-12-04 20:20] VITALS: BP 131/72
[2019-12-04] MEDS: ASCORBIC ACID 500 MG TABLET GT SCH (21:10)
[2019-12-04] MEDS: INSULIN GLARGINE, 100 UNIT/ML CARTRIDGE SQ SCH (21:13)
[2019-12-05] MEDS: METOCLOPRAMIDE HCL 10 MG/10 ML UDC GT SCH ×5 (00:26→23:57)
[2019-12-05] MEDS: GLUCERNA 1.2 1,000 ML BOTTLE NG PRN (05:39)
[2019-12-05] MEDS: GABAPENTIN 300 MG CAPSULE GT SCH ×3 (05:42→21:02)
[2019-12-05] MEDS: OMEPRAZOLE 20 MG CAPSULE.DR GT SCH (05:42)
[2019-12-05 07:55] VITALS: BP 97/53
[2019-12-05] MEDS: HYDROGEN PEROXIDE 480 ML BOTTLE TP SCH ×2 (08:10→21:00)
[2019-12-05] MEDS: DOCUSATE SODIUM LIQ 100 MG/10 ML UDC GT SCH (09:22)
[2019-12-05] MEDS: LEVETIRACETAM SOL (5 ML) 100 MG/ML UDC GT SCH ×2 (09:22→21:00)
[2019-12-05] MEDS: BLOOD SUGAR DIAGNOSTIC 1 EACH STRIP IN SCH ×2 (09:22→21:03)
[2019-12-05] MEDS: SENNOSIDES 8.6 MG TABLET GT SCH ×2 (09:22→21:03)
[2019-12-05] MEDS: SIMETHICONE SUSP 40 MG/0.6 ML BOTTLE GT SCH ×2 (09:22→21:01)
[2019-12-05] MEDS: OXCARBAZEPINE 150 MG TABLET GT SCH ×2 (09:22→21:03)
[2019-12-05] MEDS: ACIDOPHILUS/BULGARICUS 1 EACH TAB.CHEW GT SCH ×2 (09:22→17:24)
[2019-12-05] MEDS: MULTIVIT W/MINERALS 1 TAB TABLET GT SCH (09:22)
[2019-12-05] MEDS: Z GUARD REMEDY 4 OZ OINT TP SCH ×2 (09:23→21:04)
[2019-12-05] MEDS: NEOMY SULF/BACITRAC ZN/POLY 15 GM TUBE TP SCH ×2 (09:23→21:04)
[2019-12-05] MEDS: INSULIN REGULAR, HUMAN 100 UNIT/ML 3 ML VIAL SQ PRN ×2 (10:20→21:05)
[2019-12-05] MEDS: EPOETIN ALFA (4000 UNIT) 4,000 UNIT/ML VIAL SQ SCH (15:54)
[2019-12-05 20:26] VITALS: BP 144/77
[2019-12-05] MEDS: ASCORBIC ACID 500 MG TABLET GT SCH (21:03)
[2019-12-05] MEDS: INSULIN GLARGINE, 100 UNIT/ML CARTRIDGE SQ SCH (21:05)
[2019-12-06] MEDS: OMEPRAZOLE 20 MG CAPSULE.DR GT SCH (05:59)
[2019-12-06] MEDS: GABAPENTIN 300 MG CAPSULE GT SCH ×3 (06:00→20:46)
[2019-12-06] MEDS: METOCLOPRAMIDE HCL 10 MG/10 ML UDC GT SCH ×3 (06:01→18:38)
[2019-12-06] MEDS: GLUCERNA 1.2 1,000 ML BOTTLE NG PRN (06:02)
[2019-12-06 07:41] VITALS: BP 131/75
[2019-12-06] MEDS: OXCARBAZEPINE 150 MG TABLET GT SCH ×2 (09:00→20:53)
[2019-12-06] MEDS: SENNOSIDES 8.6 MG TABLET GT SCH ×2 (09:00→20:47)
[2019-12-06] MEDS: MULTIVIT W/MINERALS 1 TAB TABLET GT SCH (09:00)
[2019-12-06] MEDS: SIMETHICONE SUSP 40 MG/0.6 ML BOTTLE GT SCH ×2 (09:00→20:46)
[2019-12-06] MEDS: BLOOD SUGAR DIAGNOSTIC 1 EACH STRIP IN SCH ×2 (09:00→20:54)
[2019-12-06] MEDS: ACIDOPHILUS/BULGARICUS 1 EACH TAB.CHEW GT SCH ×2 (09:00→17:05)
[2019-12-06] MEDS: DOCUSATE SODIUM LIQ 100 MG/10 ML UDC GT SCH (09:00)
[2019-12-06] MEDS: NEOMY SULF/BACITRAC ZN/POLY 15 GM TUBE TP SCH ×2 (09:00→20:54)
[2019-12-06] MEDS: Z GUARD REMEDY 4 OZ OINT TP SCH ×2 (09:00→20:54)
[2019-12-06] MEDS: LEVETIRACETAM SOL (5 ML) 100 MG/ML UDC GT SCH ×2 (09:00→20:45)
[2019-12-06] MEDS: HYDROGEN PEROXIDE 480 ML BOTTLE TP SCH ×2 (09:02→21:00)
[2019-12-06] MEDS: INSULIN REGULAR, HUMAN 100 UNIT/ML 3 ML VIAL SQ PRN ×2 (10:16→20:56)
--- NOTE | 2019-12-06 16:10 | NUR ---
RT NOTE: PATIENT RECEIVED TRACHED ON MECHANICAL VENT. ALARMS VERIFIED AND AUDIBLE. VENT PLUGGED INTO RED OUTLET. AMBU BAG AT [facility].
--- NOTE | 2019-12-06 18:40 | NUR ---
Received order for Covid-19 test per [facility] guidelines. Notified Beckie.
[2019-12-06 19:56] VITALS: BP 121/53
[2019-12-06] MEDS: ASCORBIC ACID 500 MG TABLET GT SCH (20:54)
[2019-12-06] MEDS: INSULIN GLARGINE, 100 UNIT/ML CARTRIDGE SQ SCH (21:08)
--- NOTE | 2019-12-06 21:30 | NUR ---
RN NOTES Collected specimen for Covid testing. Pt tolerated well. Specimen sent to lab.
[2019-12-07] MEDS: METOCLOPRAMIDE HCL 10 MG/10 ML UDC GT SCH ×4 (00:32→18:09)
[2019-12-07] MEDS: GABAPENTIN 300 MG CAPSULE GT SCH ×3 (05:32→21:42)
[2019-12-07] MEDS: OMEPRAZOLE 20 MG CAPSULE.DR GT SCH (05:33)
[2019-12-07 07:29] VITALS: BP 120/73
[2019-12-07] MEDS: SENNOSIDES 8.6 MG TABLET GT SCH ×2 (09:00→21:43)
[2019-12-07] MEDS: MULTIVIT W/MINERALS 1 TAB TABLET GT SCH (09:00)
[2019-12-07] MEDS: ACIDOPHILUS/BULGARICUS 1 EACH TAB.CHEW GT SCH ×2 (09:00→17:00)
[2019-12-07] MEDS: OXCARBAZEPINE 150 MG TABLET GT SCH ×2 (09:00→21:43)
[2019-12-07] MEDS: SIMETHICONE SUSP 40 MG/0.6 ML BOTTLE GT SCH ×2 (09:00→21:42)
[2019-12-07] MEDS: BLOOD SUGAR DIAGNOSTIC 1 EACH STRIP IN SCH ×2 (09:00→21:44)
[2019-12-07] MEDS: HYDROGEN PEROXIDE 480 ML BOTTLE TP SCH ×2 (09:00→21:43)
[2019-12-07] MEDS: NEOMY SULF/BACITRAC ZN/POLY 15 GM TUBE TP SCH (09:00)
[2019-12-07] MEDS: DOCUSATE SODIUM LIQ 100 MG/10 ML UDC GT SCH (09:00)
[2019-12-07] MEDS: Z GUARD REMEDY 4 OZ OINT TP SCH ×2 (09:00→21:43)
[2019-12-07] MEDS: LEVETIRACETAM SOL (5 ML) 100 MG/ML UDC GT SCH ×2 (09:00→21:42)
--- NOTE | 2019-12-07 10:30 | NUR ---
Requested Dr. Luis to assess abdominal wound which started as skin tear. Dr. Luis assessed the wound which appears to have been caused by the GT rubbing against patient's skin, he said to use non-adhesive dressing and if it does not improve in the next couple of days, patient may need a biopsy. Endorsed.
[2019-12-07] MEDS: INSULIN REGULAR, HUMAN 100 UNIT/ML 3 ML VIAL SQ PRN (11:36)
[2019-12-07] MEDS: GLUCERNA 1.2 1,000 ML BOTTLE NG PRN (12:23)
--- NOTE | 2019-12-07 18:10 | NUR ---
Notified resident's sister Beckie that resident noted to have skin tear in the L side of the abdomen, but when assessed today it is slightly bigger size and full thickness. Dr. Luis was asked to assessed the wound, he ordered to cover it with non-adherent dressing and if it does not improve in the next couple of days, patient may need a biopsy. Also informed Beckie that gluteal crease has open skin, treatment rendered. Appreciated the call.
[2019-12-07 20:06] VITALS: BP 118/75
[2019-12-07] MEDS: ASCORBIC ACID 500 MG TABLET GT SCH (21:43)
[2019-12-07] MEDS: INSULIN GLARGINE, 100 UNIT/ML CARTRIDGE SQ SCH (21:59)
[2019-12-08] MEDS: METOCLOPRAMIDE HCL 10 MG/10 ML UDC GT SCH ×5 (01:10→23:56)
[2019-12-08] MEDS: GABAPENTIN 300 MG CAPSULE GT SCH ×3 (05:41→20:24)
[2019-12-08] MEDS: OMEPRAZOLE 20 MG CAPSULE.DR GT SCH (05:42)
[2019-12-08 07:30] VITALS: BP 124/55
[2019-12-08 07:35] LABS: HEMOGLOBIN 10.4 g/dL (11.5-14.8)
[2019-12-08] MEDS: NEOMY SULF/BACITRAC ZN/POLY 15 GM TUBE TP SCH ×2 (09:00→20:24)
[2019-12-08] MEDS: BLOOD SUGAR DIAGNOSTIC 1 EACH STRIP IN SCH ×2 (09:00→20:32)
[2019-12-08] MEDS: OXCARBAZEPINE 150 MG TABLET GT SCH ×2 (09:00→20:24)
[2019-12-08] MEDS: DOCUSATE SODIUM LIQ 100 MG/10 ML UDC GT SCH (09:00)
[2019-12-08] MEDS: MULTIVIT W/MINERALS 1 TAB TABLET GT SCH (09:00)
[2019-12-08] MEDS: Z GUARD REMEDY 4 OZ OINT TP SCH ×2 (09:00→20:24)
[2019-12-08] MEDS: LEVETIRACETAM SOL (5 ML) 100 MG/ML UDC GT SCH ×2 (09:00→20:24)
[2019-12-08] MEDS: SENNOSIDES 8.6 MG TABLET GT SCH ×2 (09:00→20:24)
[2019-12-08] MEDS: ACIDOPHILUS/BULGARICUS 1 EACH TAB.CHEW GT SCH ×2 (09:00→17:51)
[2019-12-08] MEDS: SIMETHICONE SUSP 40 MG/0.6 ML BOTTLE GT SCH ×2 (09:00→20:24)
[2019-12-08] MEDS: HYDROGEN PEROXIDE 480 ML BOTTLE TP SCH ×2 (09:24→19:48)
[2019-12-08] MEDS: EPOETIN ALFA (4000 UNIT) 4,000 UNIT/ML VIAL SQ SCH (15:00)
[2019-12-08] MEDS: GLUCERNA 1.2 1,000 ML BOTTLE NG PRN (17:51)
[2019-12-08 20:15] VITALS: BP 151/78
[2019-12-08] MEDS: ASCORBIC ACID 500 MG TABLET GT SCH (20:24)
[2019-12-08] MEDS: INSULIN REGULAR, HUMAN 100 UNIT/ML 3 ML VIAL SQ PRN (20:32)
[2019-12-08] MEDS: INSULIN GLARGINE, 100 UNIT/ML CARTRIDGE SQ SCH (21:42)
[2019-12-09] MEDS: METOCLOPRAMIDE HCL 10 MG/10 ML UDC GT SCH ×3 (05:20→17:51)
[2019-12-09] MEDS: OMEPRAZOLE 20 MG CAPSULE.DR GT SCH (05:20)
[2019-12-09] MEDS: GABAPENTIN 300 MG CAPSULE GT SCH ×3 (05:20→21:42)
[2019-12-09 07:29] VITALS: BP 128/71
[2019-12-09] MEDS: MULTIVIT W/MINERALS 1 TAB TABLET GT SCH (08:15)
[2019-12-09] MEDS: SENNOSIDES 8.6 MG TABLET GT SCH ×2 (08:15→21:42)
[2019-12-09] MEDS: SIMETHICONE SUSP 40 MG/0.6 ML BOTTLE GT SCH ×2 (08:15→21:42)
[2019-12-09] MEDS: ACIDOPHILUS/BULGARICUS 1 EACH TAB.CHEW GT SCH ×2 (08:15→17:51)
[2019-12-09] MEDS: DOCUSATE SODIUM LIQ 100 MG/10 ML UDC GT SCH (08:15)
[2019-12-09] MEDS: LEVETIRACETAM SOL (5 ML) 100 MG/ML UDC GT SCH ×2 (08:15→21:42)
[2019-12-09] MEDS: BLOOD SUGAR DIAGNOSTIC 1 EACH STRIP IN SCH ×2 (08:43→21:55)
[2019-12-09] MEDS: INSULIN REGULAR, HUMAN 100 UNIT/ML 3 ML VIAL SQ PRN ×2 (08:43→21:57)
[2019-12-09] MEDS: NEOMY SULF/BACITRAC ZN/POLY 15 GM TUBE TP SCH ×2 (09:00→21:55)
[2019-12-09] MEDS: OXCARBAZEPINE 150 MG TABLET GT SCH ×2 (09:00→21:42)
[2019-12-09] MEDS: Z GUARD REMEDY 4 OZ OINT TP SCH ×2 (09:00→21:55)
[2019-12-09] MEDS: HYDROGEN PEROXIDE 480 ML BOTTLE TP SCH ×2 (09:14→19:59)
--- NOTE | 2019-12-09 10:59 | NUR ---
Monthly progress notes.Resident is alert but unable to verbalize her needs .She smiles a lot during conversation,engaged in watching cartoons most of the day. She loves to listen to jazz music too according to he sister. Resident received daily visits for sensory stimulation,hand massage,TV, music,reality orientation. These activities are provided as needed.
[2019-12-09] MEDS: GLUCERNA 1.2 1,000 ML BOTTLE NG PRN (18:44)
[2019-12-09 20:05] VITALS: BP 174/78
[2019-12-09] MEDS: ASCORBIC ACID 500 MG TABLET GT SCH (21:42)
[2019-12-09] MEDS: INSULIN GLARGINE, 100 UNIT/ML CARTRIDGE SQ SCH (21:56)
[2019-12-10] MEDS: METOCLOPRAMIDE HCL 10 MG/10 ML UDC GT SCH ×4 (00:30→17:58)
[2019-12-10] MEDS: OMEPRAZOLE 20 MG CAPSULE.DR GT SCH (05:33)
[2019-12-10] MEDS: GABAPENTIN 300 MG CAPSULE GT SCH ×3 (05:33→21:17)
[2019-12-10 07:58] VITALS: BP 137/77
[2019-12-10] MEDS: HYDROGEN PEROXIDE 480 ML BOTTLE TP SCH ×2 (08:06→20:08)
[2019-12-10] MEDS: NEOMY SULF/BACITRAC ZN/POLY 15 GM TUBE TP SCH ×2 (09:00→21:44)
[2019-12-10] MEDS: LEVETIRACETAM SOL (5 ML) 100 MG/ML UDC GT SCH ×2 (09:00→21:17)
[2019-12-10] MEDS: BLOOD SUGAR DIAGNOSTIC 1 EACH STRIP IN SCH ×2 (09:00→21:50)
[2019-12-10] MEDS: SIMETHICONE SUSP 40 MG/0.6 ML BOTTLE GT SCH ×2 (09:00→21:12)
[2019-12-10] MEDS: OXCARBAZEPINE 150 MG TABLET GT SCH ×2 (09:00→21:17)
[2019-12-10] MEDS: ACIDOPHILUS/BULGARICUS 1 EACH TAB.CHEW GT SCH ×2 (09:00→17:58)
[2019-12-10] MEDS: DOCUSATE SODIUM LIQ 100 MG/10 ML UDC GT SCH (09:00)
[2019-12-10] MEDS: Z GUARD REMEDY 4 OZ OINT TP SCH ×2 (09:00→21:44)
[2019-12-10] MEDS: SENNOSIDES 8.6 MG TABLET GT SCH ×2 (09:00→21:17)
[2019-12-10] MEDS: MULTIVIT W/MINERALS 1 TAB TABLET GT SCH (09:00)
--- NOTE | 2019-12-10 10:33 | NUR ---
Seen and examined by Dr. Luis. re-assessed abdominal wound, showing some progress, wound bed dry and no drainage noted, no signs of infection. Current treatment of ATB and nonadherent dressing effective, to continue current order. Patient stable in no s/s of distress, tolerating ventilator setting, both F/C and nephrostomy draining yellow urine, no hematurias.
[2019-12-10] MEDS: INSULIN REGULAR, HUMAN 100 UNIT/ML 3 ML VIAL SQ PRN ×2 (10:48→21:52)
[2019-12-10] MEDS: GLUCERNA 1.2 1,000 ML BOTTLE NG PRN (19:18)
[2019-12-10 20:26] VITALS: BP 135/75
[2019-12-10] MEDS: ASCORBIC ACID 500 MG TABLET GT SCH (21:17)
[2019-12-10] MEDS: INSULIN GLARGINE, 100 UNIT/ML CARTRIDGE SQ SCH (21:51)
[2019-12-11] MEDS: METOCLOPRAMIDE HCL 10 MG/10 ML UDC GT SCH ×4 (00:06→17:40)
[2019-12-11] MEDS: GABAPENTIN 300 MG CAPSULE GT SCH ×3 (04:04→21:10)
[2019-12-11] MEDS: OMEPRAZOLE 20 MG CAPSULE.DR GT SCH (05:56)
[2019-12-11 07:43] VITALS: BP 142/72
[2019-12-11] MEDS: HYDROGEN PEROXIDE 480 ML BOTTLE TP SCH ×2 (08:23→21:00)
[2019-12-11] MEDS: OXCARBAZEPINE 150 MG TABLET GT SCH ×2 (09:00→21:10)
[2019-12-11] MEDS: SIMETHICONE SUSP 40 MG/0.6 ML BOTTLE GT SCH ×2 (09:40→21:10)
[2019-12-11] MEDS: BLOOD SUGAR DIAGNOSTIC 1 EACH STRIP IN SCH ×2 (09:40→21:10)
[2019-12-11] MEDS: ACIDOPHILUS/BULGARICUS 1 EACH TAB.CHEW GT SCH ×2 (09:40→17:24)
[2019-12-11] MEDS: DOCUSATE SODIUM LIQ 100 MG/10 ML UDC GT SCH (09:40)
[2019-12-11] MEDS: NEOMY SULF/BACITRAC ZN/POLY 15 GM TUBE TP SCH ×2 (09:40→21:10)
[2019-12-11] MEDS: MULTIVIT W/MINERALS 1 TAB TABLET GT SCH (09:40)
[2019-12-11] MEDS: SENNOSIDES 8.6 MG TABLET GT SCH ×2 (09:40→21:10)
[2019-12-11] MEDS: LEVETIRACETAM SOL (5 ML) 100 MG/ML UDC GT SCH ×2 (09:40→21:10)
[2019-12-11] MEDS: Z GUARD REMEDY 4 OZ OINT TP SCH ×2 (09:40→21:10)
[2019-12-11] MEDS: INSULIN REGULAR, HUMAN 100 UNIT/ML 3 ML VIAL SQ PRN (09:41)
[2019-12-11] MEDS: GLUCERNA 1.2 1,000 ML BOTTLE NG PRN (18:06)
[2019-12-11 20:20] VITALS: BP 142/67
[2019-12-11] MEDS: ASCORBIC ACID 500 MG TABLET GT SCH (21:10)
[2019-12-11] MEDS: INSULIN GLARGINE, 100 UNIT/ML CARTRIDGE SQ SCH (21:10)
[2019-12-12] MEDS: METOCLOPRAMIDE HCL 10 MG/10 ML UDC GT SCH ×4 (00:11→18:14)
[2019-12-12] MEDS: GABAPENTIN 300 MG CAPSULE GT SCH ×3 (05:50→21:18)
[2019-12-12] MEDS: OMEPRAZOLE 20 MG CAPSULE.DR GT SCH (05:50)
[2019-12-12 06:58] LABS: HEMOGLOBIN 9.7 g/dL (11.5-14.8)
[2019-12-12 07:40] VITALS: BP 125/65
[2019-12-12] MEDS: HYDROGEN PEROXIDE 480 ML BOTTLE TP SCH ×2 (08:32→21:00)
[2019-12-12] MEDS: OXCARBAZEPINE 150 MG TABLET GT SCH ×2 (09:53→21:18)
[2019-12-12] MEDS: Z GUARD REMEDY 4 OZ OINT TP SCH ×2 (09:53→21:18)
[2019-12-12] MEDS: BLOOD SUGAR DIAGNOSTIC 1 EACH STRIP IN SCH ×2 (09:53→21:18)
[2019-12-12] MEDS: LEVETIRACETAM SOL (5 ML) 100 MG/ML UDC GT SCH ×2 (09:53→21:18)
[2019-12-12] MEDS: MULTIVIT W/MINERALS 1 TAB TABLET GT SCH (09:53)
[2019-12-12] MEDS: SENNOSIDES 8.6 MG TABLET GT SCH ×2 (09:53→21:18)
[2019-12-12] MEDS: DOCUSATE SODIUM LIQ 100 MG/10 ML UDC GT SCH (09:53)
[2019-12-12] MEDS: ACIDOPHILUS/BULGARICUS 1 EACH TAB.CHEW GT SCH ×2 (09:53→17:10)
[2019-12-12] MEDS: SIMETHICONE SUSP 40 MG/0.6 ML BOTTLE GT SCH ×2 (09:53→21:18)
[2019-12-12] MEDS: NEOMY SULF/BACITRAC ZN/POLY 15 GM TUBE TP SCH ×2 (09:53→21:18)
[2019-12-12] MEDS: INSULIN REGULAR, HUMAN 100 UNIT/ML 3 ML VIAL SQ PRN (09:54)
[2019-12-12] MEDS: EPOETIN ALFA (4000 UNIT) 4,000 UNIT/ML VIAL SQ SCH (15:15)
--- NOTE | 2019-12-12 16:44 | NUR ---
RT NOTE RECEIVED ON MECHANICAL VENT WITH ORDERED SETTINGS. ALARMS ON AND AUDIBLE. VENT PLUGGED IN TO THE RED OUTLET. AMBU BAG AND BACK UP TRACH BY THE BEDSIDE. TRACH TUBE IN PLACE PATENT AND SECURED WITH TRACH TIE. NO DISTRESS AT THIS TIME. MONITOR THROUGHOUT SHIFT.
--- NOTE | 2019-12-12 18:48 | NUR ---
Informed pt's sister that Covid test is negative.
[2019-12-12 19:41] VITALS: BP 138/78
[2019-12-12] MEDS: ASCORBIC ACID 500 MG TABLET GT SCH (21:18)
[2019-12-12] MEDS: INSULIN GLARGINE, 100 UNIT/ML CARTRIDGE SQ SCH (21:19)
[2019-12-13] MEDS: METOCLOPRAMIDE HCL 10 MG/10 ML UDC GT SCH ×4 (00:16→17:25)
[2019-12-13] MEDS: OMEPRAZOLE 20 MG CAPSULE.DR GT SCH (05:55)
[2019-12-13] MEDS: GABAPENTIN 300 MG CAPSULE GT SCH ×3 (05:55→21:18)
[2019-12-13 07:54] VITALS: BP 118/60
[2019-12-13] MEDS: Z GUARD REMEDY 4 OZ OINT TP SCH ×2 (09:00→21:19)
[2019-12-13] MEDS: OXCARBAZEPINE 150 MG TABLET GT SCH ×2 (09:00→21:18)
[2019-12-13] MEDS: BLOOD SUGAR DIAGNOSTIC 1 EACH STRIP IN SCH ×2 (09:00→21:18)
[2019-12-13] MEDS: SENNOSIDES 8.6 MG TABLET GT SCH ×2 (09:00→21:18)
[2019-12-13] MEDS: LEVETIRACETAM SOL (5 ML) 100 MG/ML UDC GT SCH ×2 (09:00→21:18)
[2019-12-13] MEDS: DOCUSATE SODIUM LIQ 100 MG/10 ML UDC GT SCH (09:00)
[2019-12-13] MEDS: SIMETHICONE SUSP 40 MG/0.6 ML BOTTLE GT SCH ×2 (09:00→21:18)
[2019-12-13] MEDS: NEOMY SULF/BACITRAC ZN/POLY 15 GM TUBE TP SCH ×2 (09:00→21:19)
[2019-12-13] MEDS: MULTIVIT W/MINERALS 1 TAB TABLET GT SCH (09:00)
[2019-12-13] MEDS: ACIDOPHILUS/BULGARICUS 1 EACH TAB.CHEW GT SCH ×2 (09:00→17:25)
[2019-12-13] MEDS: HYDROGEN PEROXIDE 480 ML BOTTLE TP SCH ×2 (09:53→21:00)
[2019-12-13] MEDS: INSULIN REGULAR, HUMAN 100 UNIT/ML 3 ML VIAL SQ PRN (10:49)
[2019-12-13] MEDS: GLUCERNA 1.2 1,000 ML BOTTLE NG PRN (13:18)
[2019-12-13] MEDS: ASCORBIC ACID 500 MG TABLET GT SCH (21:18)
[2019-12-13] MEDS: INSULIN GLARGINE, 100 UNIT/ML CARTRIDGE SQ SCH (21:19)
[2019-12-13 21:20] VITALS: BP 101/64
[2019-12-14] MEDS: METOCLOPRAMIDE HCL 10 MG/10 ML UDC GT SCH ×4 (00:04→17:17)
[2019-12-14] MEDS: GABAPENTIN 300 MG CAPSULE GT SCH ×3 (05:00→21:55)
[2019-12-14] MEDS: OMEPRAZOLE 20 MG CAPSULE.DR GT SCH (06:18)
[2019-12-14 07:16] LABS: BASOPHILS % (AUTO) 0.3 % (0.0-2.0); HEMATOCRIT 29 % (33-45); HEMOGLOBIN 9.5 g/dL (11.5-14.8); LYMPHOCYTES # (AUTO) 2.2 /CMM (0.8-4.8); MEAN CORPUSCULAR HGB CONC 33 g/dl (31.0-36.0); MEAN CORPUSCULAR VOLUME 101 fL (82-100); MONOCYTES # (AUTO) 1.2 /CMM (0.1-1.30); MONOCYTES % (AUTO) 10.3 % (2.0-12.0); NEUTROPHILS # (AUTO) 7.5 /CMM (1.8-8.9); NEUTROPHILS % (AUTO) 65.4 % (43.0-81.0); PLATELET COUNT (AUTO) 317 /CMM (150-450); RED BLOOD CELL COUNT(AUTO) 2.85 MIL/uL (4.0-5.2); WHITE BLOOD COUNT (AUTO) 11.4 K/uL (4.3-11.0)
[2019-12-14 07:24] LABS: ALBUMIN 2.5 g/dL (3.4-5.0); BILIRUBIN,TOTAL 0.2 mg/dL (0.2-1.0); CALCIUM, SERUM 11.5 mg/dL (8.5-10.1); CREATININE 4.5 mg/dL (0.6-1.3); MAGNESIUM 3.4 mg/dL (1.8-2.4); PHOSPHORUS 5.6 mg/dL (2.5-4.9); POTASSIUM 4.4 mmol/L (3.5-5.1); TOTAL PROTEIN, SERUM 10.5 g/dL (6.4-8.2)
[2019-12-14 07:35] VITALS: BP 105/65
--- NOTE | 2019-12-14 08:15 | NUR ---
Reported CBC, CMP Mg and Phos result (BUN 81, Creat 4.5) to Dr. Kumar, he said he will be in shortly, no order given at this time.
[2019-12-14] MEDS: HYDROGEN PEROXIDE 480 ML BOTTLE TP SCH ×2 (09:05→19:46)
[2019-12-14] MEDS: NEOMY SULF/BACITRAC ZN/POLY 15 GM TUBE TP SCH ×2 (09:38→21:55)
[2019-12-14] MEDS: SENNOSIDES 8.6 MG TABLET GT SCH ×2 (09:38→21:55)
[2019-12-14] MEDS: BLOOD SUGAR DIAGNOSTIC 1 EACH STRIP IN SCH ×2 (09:38→21:57)
[2019-12-14] MEDS: DOCUSATE SODIUM LIQ 100 MG/10 ML UDC GT SCH (09:38)
[2019-12-14] MEDS: SIMETHICONE SUSP 40 MG/0.6 ML BOTTLE GT SCH ×2 (09:38→21:55)
[2019-12-14] MEDS: OXCARBAZEPINE 150 MG TABLET GT SCH ×2 (09:38→21:55)
[2019-12-14] MEDS: ACIDOPHILUS/BULGARICUS 1 EACH TAB.CHEW GT SCH ×2 (09:38→17:17)
[2019-12-14] MEDS: Z GUARD REMEDY 4 OZ OINT TP SCH ×2 (09:38→21:55)
[2019-12-14] MEDS: MULTIVIT W/MINERALS 1 TAB TABLET GT SCH (09:38)
[2019-12-14] MEDS: LEVETIRACETAM SOL (5 ML) 100 MG/ML UDC GT SCH ×2 (09:38→21:55)
--- NOTE | 2019-12-14 11:00 | NUR ---
Family Invitation to IDT: This SW called the patient's daughter, Beckie Chu [phone] to invite her to participate in 12/16/2019 12:30 pm IDT meeting via phone conference. Beckie stated, "I don't have any questions for the doctor right now". SW informed Beckie that she can still participate or get update from charge nurse regarding darnell of care. Beckie stated she understood and expressed that the charge nurses "keep her well informed".
--- NOTE | 2019-12-14 12:40 | NUR ---
Noted an order in [place] from Dr. Merino, IVF of NS 0.9% at 75 cc/hr, repeat labs in AM and various urine test. MD also decrease neurontin from 600mg to 300 mg Q 8 hours/GT. Obtained midline insertion order from Dr. Luis due to poor venous access. Spoke with resident's sister Beckie and made her aware of new orders including midline insertion. She asked what happen to the midline patient had before, explained that patient had a R femoral line before and was removed on 11/21/19 because it is not being use. When asked if she has any question or if she has spoken with MD, she said that she is being updated regularly by the nurses and there is nothing that she needs to ask the doctor at this time. She mentioned to preferably use the R arm for midline insertion.
[2019-12-14] MEDS: IV NS 0.9% 1,000 ML IV PRN (17:27)
--- NOTE | 2019-12-14 18:46 | NUR ---
Updated resident's sister Beckie that midline was placed in the patient's L arm. According to the midline nurse she is unable to find the vein she can use in her R arm, she mentioned that the last time she put a line on the patient is through a femoral line as she was not able to find a vein even in her L arm. Sister said she will call again in AM.
[2019-12-14] MEDS: GLUCERNA 1.2 1,000 ML BOTTLE NG PRN (19:30)
[2019-12-14 20:16] LABS: CREATININE, URINE 34.3 MG/DL (30.0-125.0); URINE TOTAL PROTEIN 385.6 mg/dL (0-11.9)
[2019-12-14 20:24] VITALS: BP 110/62
[2019-12-14 21:46] LABS: APPEARANCE,URINE CLOUDY (CLEAR); COLOR,URINE YELLOW (YELLOW); PROTEIN,URINE 3+ mg/dl (NEGATIVE); UGLUCOSE NEGATIVE (NEGATIVE)
[2019-12-14 21:47] LABS: BILIRUBIN,URINE NEGATIVE (NEGATIVE); BLOOD, URINE 2+ Ery/uL (NEGATIVE); EOSINOPHIL,URINE Rare; KETONES,URINE NEGATIVE (NEGATIVE); LEUKOCYTE ESTERASE ,URINE 3+ (NEGATIVE); NITRITE, URINE NEGATIVE (NEGATIVE); UROBILINOGEN,URINE 0.2 EU/dL (0.2)
[2019-12-14 21:48] LABS: BACTERIA,URINE 4+ /HPF (None Seen); SQUAMOUS EPITHELIAL CELL,UR Moderate /HPF (None Seen); WBC,URINE 51-80 /HPF (0-3)
[2019-12-14] MEDS: ASCORBIC ACID 500 MG TABLET GT SCH (21:55)
[2019-12-14] MEDS: INSULIN REGULAR, HUMAN 100 UNIT/ML 3 ML VIAL SQ PRN (21:58)
[2019-12-14] MEDS: INSULIN GLARGINE, 100 UNIT/ML CARTRIDGE SQ SCH (21:59)
[2019-12-15] MEDS: METOCLOPRAMIDE HCL 10 MG/10 ML UDC GT SCH ×4 (00:39→17:51)
[2019-12-15] MEDS: GABAPENTIN 300 MG CAPSULE GT SCH ×3 (05:27→21:38)
[2019-12-15] MEDS: OMEPRAZOLE 20 MG CAPSULE.DR GT SCH (05:27)
[2019-12-15] MEDS: IV NS 0.9% 1,000 ML IV PRN ×2 (06:37→20:31)
[2019-12-15 07:32] LABS: BASOPHILS % (AUTO) 0.7 % (0.0-2.0); EOSINOPHILS % (AUTO) 8.4 % (0.0-6.0); HEMATOCRIT 30 % (33-45); HEMOGLOBIN 9.5 g/dL (11.5-14.8); LYMPHOCYTES # (AUTO) 1.6 /CMM (0.8-4.8); LYMPHOCYTES % (AUTO) 22.5 % (20.0-44.0); MEAN CORPUSCULAR HGB CONC 32 g/dl (31.0-36.0); MEAN CORPUSCULAR VOLUME 102 fL (82-100); MONOCYTES # (AUTO) 0.8 /CMM (0.1-1.30); MONOCYTES % (AUTO) 11.5 % (2.0-12.0); NEUTROPHILS # (AUTO) 3.9 /CMM (1.8-8.9); NEUTROPHILS % (AUTO) 56.9 % (43.0-81.0); PLATELET COUNT (AUTO) 316 /CMM (150-450); RED BLOOD CELL COUNT(AUTO) 2.91 MIL/uL (4.0-5.2); WHITE BLOOD COUNT (AUTO) 6.9 K/uL (4.3-11.0)
[2019-12-15 08:00] VITALS: BP 141/84
[2019-12-15] MEDS: BLOOD SUGAR DIAGNOSTIC 1 EACH STRIP IN SCH ×2 (09:00→21:38)
[2019-12-15] MEDS: DOCUSATE SODIUM LIQ 100 MG/10 ML UDC GT SCH (09:00)
[2019-12-15] MEDS: MULTIVIT W/MINERALS 1 TAB TABLET GT SCH (09:00)
[2019-12-15] MEDS: SENNOSIDES 8.6 MG TABLET GT SCH ×2 (09:00→21:38)
[2019-12-15] MEDS: OXCARBAZEPINE 150 MG TABLET GT SCH ×2 (09:00→21:38)
[2019-12-15] MEDS: Z GUARD REMEDY 4 OZ OINT TP SCH ×2 (09:00→21:38)
[2019-12-15] MEDS: ACIDOPHILUS/BULGARICUS 1 EACH TAB.CHEW GT SCH ×2 (09:00→17:51)
[2019-12-15] MEDS: LEVETIRACETAM SOL (5 ML) 100 MG/ML UDC GT SCH ×2 (09:00→21:38)
[2019-12-15] MEDS: SIMETHICONE SUSP 40 MG/0.6 ML BOTTLE GT SCH ×2 (09:00→21:38)
[2019-12-15] MEDS: HYDROGEN PEROXIDE 480 ML BOTTLE TP SCH ×2 (09:26→19:56)
[2019-12-15 09:35] LABS: ALBUMIN 2.6 g/dL (3.4-5.0); BILIRUBIN,TOTAL 0.2 mg/dL (0.2-1.0); CALCIUM, SERUM 11.3 mg/dL (8.5-10.1); CREATININE 4.2 mg/dL (0.6-1.3); MAGNESIUM 3.4 mg/dL (1.8-2.4); PHOSPHORUS 5.4 mg/dL (2.5-4.9); POTASSIUM 4.6 mmol/L (3.5-5.1); TOTAL PROTEIN, SERUM 10.4 g/dL (6.4-8.2)
--- NOTE | 2019-12-15 12:09 | NUR ---
Seen by PT. Received order for RNA to perform BLE PROM daily 5x/wk as tolerated. Notified Beckie.
[2019-12-15] MEDS: EPOETIN ALFA (4000 UNIT) 4,000 UNIT/ML VIAL SQ SCH (15:00)
[2019-12-15] MEDS: GLUCERNA 1.2 1,000 ML BOTTLE NG PRN (17:52)
[2019-12-15 20:14] VITALS: BP 140/56
[2019-12-15] MEDS: ASCORBIC ACID 500 MG TABLET GT SCH (21:38)
[2019-12-15] MEDS: INSULIN GLARGINE, 100 UNIT/ML CARTRIDGE SQ SCH (21:39)
[2019-12-15] MEDS: INSULIN REGULAR, HUMAN 100 UNIT/ML 3 ML VIAL SQ PRN (21:40)
[2019-12-16] MEDS: METOCLOPRAMIDE HCL 10 MG/10 ML UDC GT SCH ×5 (00:03→23:42)
[2019-12-16] MEDS: OMEPRAZOLE 20 MG CAPSULE.DR GT SCH (05:46)
[2019-12-16] MEDS: GABAPENTIN 300 MG CAPSULE GT SCH ×3 (05:46→21:30)
[2019-12-16 07:19] LABS: BASOPHILS % (AUTO) 0.6 % (0.0-2.0); EOSINOPHILS % (AUTO) 8.5 % (0.0-6.0); HEMATOCRIT 31 % (33-45); HEMOGLOBIN 9.7 g/dL (11.5-14.8); LYMPHOCYTES % (AUTO) 25.1 % (20.0-44.0); MEAN CORPUSCULAR HGB CONC 32 g/dl (31.0-36.0); MEAN CORPUSCULAR VOLUME 103 fL (82-100); MONOCYTES # (AUTO) 0.8 /CMM (0.1-1.30); MONOCYTES % (AUTO) 10.6 % (2.0-12.0); NEUTROPHILS # (AUTO) 4.4 /CMM (1.8-8.9); NEUTROPHILS % (AUTO) 55.2 % (43.0-81.0); PLATELET COUNT (AUTO) 335 /CMM (150-450); RED BLOOD CELL COUNT(AUTO) 2.97 MIL/uL (4.0-5.2)
[2019-12-16 07:32] LABS: ALBUMIN 2.6 g/dL (3.4-5.0); BILIRUBIN,TOTAL 0.2 mg/dL (0.2-1.0); CALCIUM, SERUM 10.7 mg/dL (8.5-10.1); CREATININE 3.8 mg/dL (0.6-1.3); MAGNESIUM 3.1 mg/dL (1.8-2.4); PHOSPHORUS 5.5 mg/dL (2.5-4.9); POTASSIUM 4.4 mmol/L (3.5-5.1); TOTAL PROTEIN, SERUM 10.1 g/dL (6.4-8.2)
[2019-12-16 07:46] VITALS: BP 158/91
[2019-12-16] MEDS: Z GUARD REMEDY 4 OZ OINT TP SCH ×2 (09:00→21:30)
[2019-12-16] MEDS: SENNOSIDES 8.6 MG TABLET GT SCH ×2 (09:00→21:30)
[2019-12-16] MEDS: LEVETIRACETAM SOL (5 ML) 100 MG/ML UDC GT SCH ×2 (09:00→21:30)
[2019-12-16] MEDS: OXCARBAZEPINE 150 MG TABLET GT SCH ×2 (09:00→21:30)
[2019-12-16] MEDS: BLOOD SUGAR DIAGNOSTIC 1 EACH STRIP IN SCH ×2 (09:00→21:30)
[2019-12-16] MEDS: ACIDOPHILUS/BULGARICUS 1 EACH TAB.CHEW GT SCH ×2 (09:00→17:19)
[2019-12-16] MEDS: SIMETHICONE SUSP 40 MG/0.6 ML BOTTLE GT SCH ×2 (09:00→21:30)
[2019-12-16] MEDS: MULTIVIT W/MINERALS 1 TAB TABLET GT SCH (09:00)
[2019-12-16] MEDS: DOCUSATE SODIUM LIQ 100 MG/10 ML UDC GT SCH (09:00)
[2019-12-16] MEDS: HYDROGEN PEROXIDE 480 ML BOTTLE TP SCH ×2 (09:22→20:03)
[2019-12-16] MEDS: IV NS 0.9% 1,000 ML IV PRN (10:08)
--- NOTE | 2019-12-16 11:30 | NUR ---
Seen and examined by Dr. Luis and Dr. Kumar reviewed lab result with no new order given. Patient continue with IVF NS at 75 cc/hr.
--- NOTE | 2019-12-16 14:54 | NUR ---
INTERDISCIPLINARY PLAN OF CARE CONFERENCE took place today. The patients responsible constitution party/ Beckie Chu [phone] was not able to participate. Dr. Felix and Interdisciplinary team discussed the plan of care in detail. Current orders as well as treatments and medications were reviewed. Please see other disciplines notes for further details
[2019-12-16] MEDS: GLUCERNA 1.2 1,000 ML BOTTLE NG PRN (17:20)
--- NOTE | 2019-12-16 19:00 | NUR ---
Seen and examined by NAN Vargas, no new order given.
[2019-12-16 20:17] VITALS: BP 146/79
[2019-12-16] MEDS: ASCORBIC ACID 500 MG TABLET GT SCH (21:30)
[2019-12-16] MEDS: INSULIN GLARGINE, 100 UNIT/ML CARTRIDGE SQ SCH (21:31)
[2019-12-16] MEDS: INSULIN REGULAR, HUMAN 100 UNIT/ML 3 ML VIAL SQ PRN (21:36)
[2019-12-17] MEDS: METOCLOPRAMIDE HCL 10 MG/10 ML UDC GT SCH ×4 (05:37→23:57)
[2019-12-17] MEDS: OMEPRAZOLE 20 MG CAPSULE.DR GT SCH (05:37)
[2019-12-17] MEDS: GABAPENTIN 300 MG CAPSULE GT SCH ×3 (05:37→20:56)
[2019-12-17 07:52] VITALS: BP 134/82
[2019-12-17] MEDS: SIMETHICONE SUSP 40 MG/0.6 ML BOTTLE GT SCH ×2 (08:55→20:56)
[2019-12-17] MEDS: BLOOD SUGAR DIAGNOSTIC 1 EACH STRIP IN SCH ×2 (08:55→21:00)
[2019-12-17] MEDS: DOCUSATE SODIUM LIQ 100 MG/10 ML UDC GT SCH (08:55)
[2019-12-17] MEDS: SENNOSIDES 8.6 MG TABLET GT SCH ×2 (08:55→20:56)
[2019-12-17] MEDS: MULTIVIT W/MINERALS 1 TAB TABLET GT SCH (08:55)
[2019-12-17] MEDS: INSULIN REGULAR, HUMAN 100 UNIT/ML 3 ML VIAL SQ PRN ×2 (08:55→22:40)
[2019-12-17] MEDS: ACIDOPHILUS/BULGARICUS 1 EACH TAB.CHEW GT SCH ×2 (08:55→17:34)
[2019-12-17] MEDS: LEVETIRACETAM SOL (5 ML) 100 MG/ML UDC GT SCH ×2 (08:55→20:56)
[2019-12-17] MEDS: OXCARBAZEPINE 150 MG TABLET GT SCH ×2 (08:55→20:56)
[2019-12-17] MEDS: Z GUARD REMEDY 4 OZ OINT TP SCH ×2 (08:56→20:57)
[2019-12-17] MEDS: HYDROGEN PEROXIDE 480 ML BOTTLE TP SCH ×2 (09:13→21:21)
[2019-12-17] MEDS: GLUCERNA 1.2 1,000 ML BOTTLE NG PRN (12:14)
[2019-12-17] MEDS: IV NS 0.9% 1,000 ML IV PRN (14:47)
[2019-12-17] MEDS: ASCORBIC ACID 500 MG TABLET GT SCH (20:57)
[2019-12-17 21:06] VITALS: BP 126/70
[2019-12-17] MEDS: INSULIN GLARGINE, 100 UNIT/ML CARTRIDGE SQ SCH (22:45)
[2019-12-18] MEDS: OMEPRAZOLE 20 MG CAPSULE.DR GT SCH (05:21)
[2019-12-18] MEDS: METOCLOPRAMIDE HCL 10 MG/10 ML UDC GT SCH ×3 (05:21→18:13)
[2019-12-18] MEDS: GABAPENTIN 300 MG CAPSULE GT SCH ×3 (05:21→21:27)
[2019-12-18 07:47] VITALS: BP 142/81
--- NOTE | 2019-12-18 08:45 | NUR ---
Received electronic order from Dr. Kumar, CBC, CMP, Mg, Phosphorus in AM 12/19/19. Cont. on IV hydration. Afebrile. Will continue to monitor.
[2019-12-18] MEDS: HYDROGEN PEROXIDE 480 ML BOTTLE TP SCH ×2 (08:49→21:00)
[2019-12-18] MEDS: DOCUSATE SODIUM LIQ 100 MG/10 ML UDC GT SCH (09:39)
[2019-12-18] MEDS: SENNOSIDES 8.6 MG TABLET GT SCH ×2 (09:39→21:27)
[2019-12-18] MEDS: LEVETIRACETAM SOL (5 ML) 100 MG/ML UDC GT SCH ×2 (09:39→21:27)
[2019-12-18] MEDS: BLOOD SUGAR DIAGNOSTIC 1 EACH STRIP IN SCH ×2 (09:39→21:27)
[2019-12-18] MEDS: SIMETHICONE SUSP 40 MG/0.6 ML BOTTLE GT SCH ×2 (09:39→21:27)
[2019-12-18] MEDS: Z GUARD REMEDY 4 OZ OINT TP SCH ×2 (09:39→21:27)
[2019-12-18] MEDS: ACIDOPHILUS/BULGARICUS 1 EACH TAB.CHEW GT SCH ×2 (09:39→17:00)
[2019-12-18] MEDS: OXCARBAZEPINE 150 MG TABLET GT SCH ×2 (09:39→21:27)
[2019-12-18] MEDS: MULTIVIT W/MINERALS 1 TAB TABLET GT SCH (09:39)
[2019-12-18] MEDS: GLUCERNA 1.2 1,000 ML BOTTLE NG PRN (16:44)
[2019-12-18] MEDS: IV NS 0.9% 1,000 ML IV PRN (20:10)
[2019-12-18 20:40] VITALS: BP 148/79
[2019-12-18] MEDS: ASCORBIC ACID 500 MG TABLET GT SCH (21:27)
[2019-12-18] MEDS: INSULIN GLARGINE, 100 UNIT/ML CARTRIDGE SQ SCH (21:28)
[2019-12-19] MEDS: METOCLOPRAMIDE HCL 10 MG/10 ML UDC GT SCH ×4 (00:20→17:10)
[2019-12-19] MEDS: OMEPRAZOLE 20 MG CAPSULE.DR GT SCH (05:35)
[2019-12-19] MEDS: GABAPENTIN 300 MG CAPSULE GT SCH ×3 (05:35→21:11)
[2019-12-19 06:47] LABS: BASOPHILS % (AUTO) 0.6 % (0.0-2.0); EOSINOPHILS % (AUTO) 6.5 % (0.0-6.0); HEMATOCRIT 34 % (33-45); HEMOGLOBIN 10.8 g/dL (11.5-14.8); LYMPHOCYTES # (AUTO) 1.9 /CMM (0.8-4.8); LYMPHOCYTES % (AUTO) 23.6 % (20.0-44.0); MEAN CORPUSCULAR HGB CONC 32 g/dl (31.0-36.0); MEAN CORPUSCULAR VOLUME 105 fL (82-100); MONOCYTES # (AUTO) 0.6 /CMM (0.1-1.30); MONOCYTES % (AUTO) 7.6 % (2.0-12.0); NEUTROPHILS # (AUTO) 4.9 /CMM (1.8-8.9); NEUTROPHILS % (AUTO) 61.7 % (43.0-81.0); PLATELET COUNT (AUTO) 358 /CMM (150-450); RED BLOOD CELL COUNT(AUTO) 3.25 MIL/uL (4.0-5.2)
[2019-12-19 07:10] LABS: ALBUMIN 2.4 g/dL (3.4-5.0); BILIRUBIN,TOTAL 0.2 mg/dL (0.2-1.0); CALCIUM, SERUM 10.4 mg/dL (8.5-10.1); CREATININE 3.3 mg/dL (0.6-1.3); PHOSPHORUS 4.3 mg/dL (2.5-4.9); POTASSIUM 4.8 mmol/L (3.5-5.1); TOTAL PROTEIN, SERUM 9.4 g/dL (6.4-8.2)
[2019-12-19 07:42] VITALS: BP 127/65
[2019-12-19] MEDS: HYDROGEN PEROXIDE 480 ML BOTTLE TP SCH ×2 (08:18→21:00)
[2019-12-19] MEDS: SENNOSIDES 8.6 MG TABLET GT SCH ×2 (09:00→21:11)
[2019-12-19] MEDS: DOCUSATE SODIUM LIQ 100 MG/10 ML UDC GT SCH (09:00)
[2019-12-19] MEDS: SIMETHICONE SUSP 40 MG/0.6 ML BOTTLE GT SCH ×2 (09:00→21:11)
[2019-12-19] MEDS: LEVETIRACETAM SOL (5 ML) 100 MG/ML UDC GT SCH ×2 (09:00→21:11)
[2019-12-19] MEDS: MULTIVIT W/MINERALS 1 TAB TABLET GT SCH (09:00)
[2019-12-19] MEDS: ACIDOPHILUS/BULGARICUS 1 EACH TAB.CHEW GT SCH ×2 (09:00→17:10)
[2019-12-19] MEDS: OXCARBAZEPINE 150 MG TABLET GT SCH ×2 (09:00→21:11)
[2019-12-19] MEDS: Z GUARD REMEDY 4 OZ OINT TP SCH ×2 (09:00→21:11)
[2019-12-19] MEDS: BLOOD SUGAR DIAGNOSTIC 1 EACH STRIP IN SCH ×2 (09:00→21:11)
[2019-12-19] MEDS: EPOETIN ALFA (4000 UNIT) 4,000 UNIT/ML VIAL SQ SCH (15:00)
[2019-12-19] MEDS: GLUCERNA 1.2 1,000 ML BOTTLE NG PRN (17:12)
[2019-12-19 20:06] VITALS: BP 146/71
[2019-12-19] MEDS: ASCORBIC ACID 500 MG TABLET GT SCH (21:11)
[2019-12-19] MEDS: INSULIN GLARGINE, 100 UNIT/ML CARTRIDGE SQ SCH (21:12)
[2019-12-20] MEDS: METOCLOPRAMIDE HCL 10 MG/10 ML UDC GT SCH ×4 (00:12→18:03)
[2019-12-20] MEDS: OMEPRAZOLE 20 MG CAPSULE.DR GT SCH (05:48)
[2019-12-20] MEDS: GABAPENTIN 300 MG CAPSULE GT SCH ×3 (05:48→21:33)
[2019-12-20 07:57] VITALS: BP 141/82
[2019-12-20] MEDS: HYDROGEN PEROXIDE 480 ML BOTTLE TP SCH ×2 (09:15→21:00)
--- NOTE | 2019-12-20 09:30 | NUR ---
Relayed lab results to Dr. Felix no new orders.
--- NOTE | 2019-12-20 09:30 | NUR ---
Seen and examined by Dr. Felix no new orders.
[2019-12-20] MEDS: OXCARBAZEPINE 150 MG TABLET GT SCH ×2 (09:58→21:33)
[2019-12-20] MEDS: BLOOD SUGAR DIAGNOSTIC 1 EACH STRIP IN SCH ×2 (09:58→21:33)
[2019-12-20] MEDS: SIMETHICONE SUSP 40 MG/0.6 ML BOTTLE GT SCH ×2 (09:58→21:33)
[2019-12-20] MEDS: Z GUARD REMEDY 4 OZ OINT TP SCH ×2 (09:58→21:34)
[2019-12-20] MEDS: SENNOSIDES 8.6 MG TABLET GT SCH ×2 (09:58→21:33)
[2019-12-20] MEDS: DOCUSATE SODIUM LIQ 100 MG/10 ML UDC GT SCH (09:58)
[2019-12-20] MEDS: LEVETIRACETAM SOL (5 ML) 100 MG/ML UDC GT SCH ×2 (09:58→21:33)
[2019-12-20] MEDS: ACIDOPHILUS/BULGARICUS 1 EACH TAB.CHEW GT SCH ×2 (09:58→16:13)
[2019-12-20] MEDS: MULTIVIT W/MINERALS 1 TAB TABLET GT SCH (09:58)
[2019-12-20] MEDS: IV NS 0.9% 1,000 ML IV PRN (14:18)
[2019-12-20] MEDS: NEOMY SULF/BACITRAC ZN/POLY 15 GM TUBE TP SCH ×2 (15:00→21:34)
[2019-12-20] MEDS: GLUCERNA 1.2 1,000 ML BOTTLE NG PRN (16:13)
[2019-12-20 20:25] VITALS: BP 118/67
[2019-12-20] MEDS: ASCORBIC ACID 500 MG TABLET GT SCH (21:33)
[2019-12-20] MEDS: INSULIN GLARGINE, 100 UNIT/ML CARTRIDGE SQ SCH (21:35)
[2019-12-21] MEDS: METOCLOPRAMIDE HCL 10 MG/10 ML UDC GT SCH ×4 (00:10→17:56)
[2019-12-21] MEDS: IV NS 0.9% 1,000 ML IV PRN (05:23)
[2019-12-21] MEDS: OMEPRAZOLE 20 MG CAPSULE.DR GT SCH (05:33)
[2019-12-21] MEDS: GABAPENTIN 300 MG CAPSULE GT SCH ×3 (05:33→21:54)
[2019-12-21 07:54] VITALS: BP 151/90
[2019-12-21] MEDS: Z GUARD REMEDY 4 OZ OINT TP SCH ×2 (09:00→21:54)
[2019-12-21] MEDS: MULTIVIT W/MINERALS 1 TAB TABLET GT SCH (09:00)
[2019-12-21] MEDS: OXCARBAZEPINE 150 MG TABLET GT SCH ×2 (09:00→21:54)
[2019-12-21] MEDS: SIMETHICONE SUSP 40 MG/0.6 ML BOTTLE GT SCH ×2 (09:00→21:53)
[2019-12-21] MEDS: DOCUSATE SODIUM LIQ 100 MG/10 ML UDC GT SCH (09:00)
[2019-12-21] MEDS: BLOOD SUGAR DIAGNOSTIC 1 EACH STRIP IN SCH ×2 (09:00→21:54)
[2019-12-21] MEDS: NEOMY SULF/BACITRAC ZN/POLY 15 GM TUBE TP SCH ×2 (09:00→21:54)
[2019-12-21] MEDS: SENNOSIDES 8.6 MG TABLET GT SCH ×2 (09:00→21:54)
[2019-12-21] MEDS: LEVETIRACETAM SOL (5 ML) 100 MG/ML UDC GT SCH ×2 (09:00→21:49)
[2019-12-21] MEDS: ACIDOPHILUS/BULGARICUS 1 EACH TAB.CHEW GT SCH ×2 (09:00→17:56)
[2019-12-21] MEDS: HYDROGEN PEROXIDE 480 ML BOTTLE TP SCH ×2 (09:11→19:58)
--- NOTE | 2019-12-21 09:41 | NUR ---
Asked Dr. Esteban to review recent CBC and BMP result collected on 12/19/19 as patient still on IVF, MD said he will.
[2019-12-21] MEDS: INSULIN REGULAR, HUMAN 100 UNIT/ML 3 ML VIAL SQ PRN ×2 (10:16→21:55)
--- NOTE | 2019-12-21 11:26 | NUR ---
Seen and examined by Dr. Luis, made aware that patient L upper arm midline cannot be flushed and HL inserted in the R foot by the showcase trimmer. Assesses L arm, no s/s of infiltration. He said to contact midline nurse and see if they can check placement using their machine. Nursing mold construction supervisor notified. No new order given at this time.
--- NOTE | 2019-12-21 13:30 | NUR ---
Estefania, midline nurse assessed midline position. She said that is is now flushing with good blood return, transparent dressing applied.
--- NOTE | 2019-12-21 17:38 | NUR ---
Notified resident's sister Beckie that patient's IVF has been discontinued and updated her on patient's skin condition. Abdominal wound closed with black scab over it. Patient has open skin in the R hand, Dr. Luis aware with treatment to apply triple ATB. Patient's sacral has no open area, pink in color. Resident awake, alert and respond to simple command, no s/s of respiratory distress. F/C and nephrostomy draining yellow urine, no hematuria. Appreciated the update provided.
[2019-12-21] MEDS: GLUCERNA 1.2 1,000 ML BOTTLE NG PRN (17:56)
[2019-12-21 20:25] VITALS: BP 120/69
[2019-12-21] MEDS: ASCORBIC ACID 500 MG TABLET GT SCH (21:54)
[2019-12-21] MEDS: INSULIN GLARGINE, 100 UNIT/ML CARTRIDGE SQ SCH (21:55)
[2019-12-22] MEDS: METOCLOPRAMIDE HCL 10 MG/10 ML UDC GT SCH ×5 (00:04→23:47)
[2019-12-22] MEDS: OMEPRAZOLE 20 MG CAPSULE.DR GT SCH (05:22)
[2019-12-22] MEDS: GABAPENTIN 300 MG CAPSULE GT SCH ×3 (05:22→21:30)
[2019-12-22 07:17] LABS: HEMOGLOBIN 11.2 g/dL (11.5-14.8)
[2019-12-22 07:47] VITALS: BP 129/62
[2019-12-22] MEDS: NEOMY SULF/BACITRAC ZN/POLY 15 GM TUBE TP SCH ×2 (09:00→21:31)
[2019-12-22] MEDS: Z GUARD REMEDY 4 OZ OINT TP SCH ×2 (09:00→21:31)
[2019-12-22] MEDS: HYDROGEN PEROXIDE 480 ML BOTTLE TP SCH ×2 (09:00→19:59)
[2019-12-22] MEDS: MULTIVIT W/MINERALS 1 TAB TABLET GT SCH (09:59)
[2019-12-22] MEDS: LEVETIRACETAM SOL (5 ML) 100 MG/ML UDC GT SCH ×2 (09:59→21:29)
[2019-12-22] MEDS: OXCARBAZEPINE 150 MG TABLET GT SCH ×2 (09:59→21:30)
[2019-12-22] MEDS: SENNOSIDES 8.6 MG TABLET GT SCH ×2 (09:59→21:30)
[2019-12-22] MEDS: DOCUSATE SODIUM LIQ 100 MG/10 ML UDC GT SCH (09:59)
[2019-12-22] MEDS: BLOOD SUGAR DIAGNOSTIC 1 EACH STRIP IN SCH ×2 (09:59→21:31)
[2019-12-22] MEDS: SIMETHICONE SUSP 40 MG/0.6 ML BOTTLE GT SCH ×2 (09:59→21:29)
[2019-12-22] MEDS: ACIDOPHILUS/BULGARICUS 1 EACH TAB.CHEW GT SCH ×2 (09:59→16:56)
[2019-12-22] MEDS: EPOETIN ALFA (4000 UNIT) 4,000 UNIT/ML VIAL SQ SCH (15:00)
--- NOTE | 2019-12-22 15:53 | NUR ---
Facility Update: Per SA Wallpaperer's request, this SW called the patient's siste/Conservator, Beckie Chu [phone] to notify her that a Sub[facility]Acute employee has tested positive for COVID-19. SW notified families that [facility] is following infection control guidelines at outlined by the [place] Department of Public Health. SW also informed family that all of the residents and staff will be re-tested for COVID-19. SW will be available as needed to support the patient and their family as needed.
[2019-12-22] MEDS: GLUCERNA 1.2 1,000 ML BOTTLE NG PRN (16:57)
--- NOTE | 2019-12-22 18:40 | NUR ---
Left message for Beckie that pt will be tested for Covid-19 per [facility] guidelines. Pt asymptomatic.
[2019-12-22 20:11] VITALS: BP 135/74
[2019-12-22] MEDS: ASCORBIC ACID 500 MG TABLET GT SCH (21:30)
[2019-12-22] MEDS: INSULIN REGULAR, HUMAN 100 UNIT/ML 3 ML VIAL SQ PRN (21:32)
[2019-12-22] MEDS: INSULIN GLARGINE, 100 UNIT/ML CARTRIDGE SQ SCH (21:32)
[2019-12-23] MEDS: METOCLOPRAMIDE HCL 10 MG/10 ML UDC GT SCH ×4 (05:34→23:26)
[2019-12-23] MEDS: OMEPRAZOLE 20 MG CAPSULE.DR GT SCH (05:34)
[2019-12-23] MEDS: GABAPENTIN 300 MG CAPSULE GT SCH ×3 (05:34→21:19)
[2019-12-23 07:52] VITALS: BP 109/66
[2019-12-23] MEDS: BLOOD SUGAR DIAGNOSTIC 1 EACH STRIP IN SCH ×2 (09:00→21:19)
[2019-12-23] MEDS: SIMETHICONE SUSP 40 MG/0.6 ML BOTTLE GT SCH ×2 (09:00→21:19)
[2019-12-23] MEDS: Z GUARD REMEDY 4 OZ OINT TP SCH ×2 (09:00→21:19)
[2019-12-23] MEDS: OXCARBAZEPINE 150 MG TABLET GT SCH ×2 (09:00→21:19)
[2019-12-23] MEDS: ACIDOPHILUS/BULGARICUS 1 EACH TAB.CHEW GT SCH ×2 (09:00→17:06)
[2019-12-23] MEDS: SENNOSIDES 8.6 MG TABLET GT SCH ×2 (09:00→21:19)
[2019-12-23] MEDS: MULTIVIT W/MINERALS 1 TAB TABLET GT SCH (09:00)
[2019-12-23] MEDS: NEOMY SULF/BACITRAC ZN/POLY 15 GM TUBE TP SCH ×2 (09:00→21:19)
[2019-12-23] MEDS: DOCUSATE SODIUM LIQ 100 MG/10 ML UDC GT SCH (09:00)
[2019-12-23] MEDS: HYDROGEN PEROXIDE 480 ML BOTTLE TP SCH ×2 (09:00→20:19)
[2019-12-23] MEDS: LEVETIRACETAM SOL (5 ML) 100 MG/ML UDC GT SCH ×2 (09:00→21:19)
[2019-12-23 20:24] VITALS: BP 159/87
[2019-12-23] MEDS: ASCORBIC ACID 500 MG TABLET GT SCH (21:19)
[2019-12-23] MEDS: INSULIN GLARGINE, 100 UNIT/ML CARTRIDGE SQ SCH (21:20)
[2019-12-23] MEDS: INSULIN REGULAR, HUMAN 100 UNIT/ML 3 ML VIAL SQ PRN (21:20)
[2019-12-24] MEDS: OMEPRAZOLE 20 MG CAPSULE.DR GT SCH (05:31)
[2019-12-24] MEDS: GABAPENTIN 300 MG CAPSULE GT SCH ×3 (05:31→21:00)
[2019-12-24] MEDS: METOCLOPRAMIDE HCL 10 MG/10 ML UDC GT SCH ×3 (05:31→17:06)
[2019-12-24] MEDS: GLUCERNA 1.2 1,000 ML BOTTLE NG PRN ×2 (07:09→22:45)
[2019-12-24 07:55] VITALS: BP 154/80
[2019-12-24] MEDS: ACIDOPHILUS/BULGARICUS 1 EACH TAB.CHEW GT SCH ×2 (08:42→17:06)
[2019-12-24] MEDS: SIMETHICONE SUSP 40 MG/0.6 ML BOTTLE GT SCH ×2 (08:42→21:00)
[2019-12-24] MEDS: SENNOSIDES 8.6 MG TABLET GT SCH ×2 (08:42→21:00)
[2019-12-24] MEDS: DOCUSATE SODIUM LIQ 100 MG/10 ML UDC GT SCH (08:42)
[2019-12-24] MEDS: LEVETIRACETAM SOL (5 ML) 100 MG/ML UDC GT SCH ×2 (08:42→21:00)
[2019-12-24] MEDS: BLOOD SUGAR DIAGNOSTIC 1 EACH STRIP IN SCH ×2 (08:43→21:00)
[2019-12-24] MEDS: Z GUARD REMEDY 4 OZ OINT TP SCH (08:43)
[2019-12-24] MEDS: OXCARBAZEPINE 150 MG TABLET GT SCH ×2 (08:43→21:00)
[2019-12-24] MEDS: MULTIVIT W/MINERALS 1 TAB TABLET GT SCH (08:43)
[2019-12-24] MEDS: NEOMY SULF/BACITRAC ZN/POLY 15 GM TUBE TP SCH (08:43)
[2019-12-24] MEDS: INSULIN REGULAR, HUMAN 100 UNIT/ML 3 ML VIAL SQ PRN (08:50)
[2019-12-24] MEDS: HYDROGEN PEROXIDE 480 ML BOTTLE TP SCH ×2 (09:00→21:05)
[2019-12-24 20:38] VITALS: BP 132/72
[2019-12-24] MEDS: ASCORBIC ACID 500 MG TABLET GT SCH (21:00)
[2019-12-24] MEDS: INSULIN GLARGINE, 100 UNIT/ML CARTRIDGE SQ SCH (22:00)
[2019-12-25] MEDS: GABAPENTIN 300 MG CAPSULE GT SCH ×3 (04:12→21:22)
[2019-12-25] MEDS: METOCLOPRAMIDE HCL 10 MG/10 ML UDC GT SCH ×4 (05:34→18:43)
[2019-12-25] MEDS: OMEPRAZOLE 20 MG CAPSULE.DR GT SCH (05:34)
[2019-12-25 07:45] VITALS: BP 106/53
[2019-12-25] MEDS: HYDROGEN PEROXIDE 480 ML BOTTLE TP SCH ×2 (08:35→21:22)
[2019-12-25] MEDS: OXCARBAZEPINE 150 MG TABLET GT SCH ×2 (08:41→21:22)
[2019-12-25] MEDS: LEVETIRACETAM SOL (5 ML) 100 MG/ML UDC GT SCH ×2 (08:41→21:22)
[2019-12-25] MEDS: DOCUSATE SODIUM LIQ 100 MG/10 ML UDC GT SCH (08:41)
[2019-12-25] MEDS: ACIDOPHILUS/BULGARICUS 1 EACH TAB.CHEW GT SCH ×2 (08:41→17:00)
[2019-12-25] MEDS: MULTIVIT W/MINERALS 1 TAB TABLET GT SCH (08:41)
[2019-12-25] MEDS: SIMETHICONE SUSP 40 MG/0.6 ML BOTTLE GT SCH ×2 (08:41→21:22)
[2019-12-25] MEDS: NEOMY SULF/BACITRAC ZN/POLY 15 GM TUBE TP SCH ×2 (08:41→21:22)
[2019-12-25] MEDS: SENNOSIDES 8.6 MG TABLET GT SCH ×2 (08:41→21:22)
[2019-12-25] MEDS: BLOOD SUGAR DIAGNOSTIC 1 EACH STRIP IN SCH ×2 (08:41→21:26)
[2019-12-25] MEDS: INSULIN REGULAR, HUMAN 100 UNIT/ML 3 ML VIAL SQ PRN ×2 (08:42→21:26)
[2019-12-25] MEDS: Z GUARD REMEDY 4 OZ OINT TP SCH ×2 (09:00→21:22)
--- NOTE | 2019-12-25 10:00 | NUR ---
Bourgeois catheter changed due to with blockage. New Bourgeois catheter with clean yellow urine. Tolerated procedure well. No acute distress noted.
--- NOTE | 2019-12-25 14:08 | NUR ---
Called and spoke to patients' sister Beckie, notified her that her sisters' Covid Test done 12/21 is negative.
[2019-12-25] MEDS: GLUCERNA 1.2 1,000 ML BOTTLE NG PRN (16:42)
[2019-12-25 19:48] VITALS: BP 114/70
[2019-12-25] MEDS: ASCORBIC ACID 500 MG TABLET GT SCH (21:22)
[2019-12-25] MEDS: INSULIN GLARGINE, 100 UNIT/ML CARTRIDGE SQ SCH (21:27)
[2019-12-26] MEDS: METOCLOPRAMIDE HCL 10 MG/10 ML UDC GT SCH ×5 (00:18→23:46)
[2019-12-26] MEDS: GABAPENTIN 300 MG CAPSULE GT SCH ×3 (05:25→21:09)
[2019-12-26] MEDS: OMEPRAZOLE 20 MG CAPSULE.DR GT SCH (05:25)
[2019-12-26 06:30] LABS: HEMOGLOBIN 10.9 g/dL (11.5-14.8)
[2019-12-26 07:47] VITALS: BP 131/64
[2019-12-26] MEDS: ACIDOPHILUS/BULGARICUS 1 EACH TAB.CHEW GT SCH ×2 (09:00→17:02)
[2019-12-26] MEDS: LEVETIRACETAM SOL (5 ML) 100 MG/ML UDC GT SCH ×2 (09:00→21:09)
[2019-12-26] MEDS: NEOMY SULF/BACITRAC ZN/POLY 15 GM TUBE TP SCH ×2 (09:00→21:09)
[2019-12-26] MEDS: DOCUSATE SODIUM LIQ 100 MG/10 ML UDC GT SCH (09:00)
[2019-12-26] MEDS: MULTIVIT W/MINERALS 1 TAB TABLET GT SCH (09:00)
[2019-12-26] MEDS: SIMETHICONE SUSP 40 MG/0.6 ML BOTTLE GT SCH ×2 (09:00→21:09)
[2019-12-26] MEDS: SENNOSIDES 8.6 MG TABLET GT SCH ×2 (09:00→21:09)
[2019-12-26] MEDS: HYDROGEN PEROXIDE 480 ML BOTTLE TP SCH ×2 (09:00→21:00)
[2019-12-26] MEDS: Z GUARD REMEDY 4 OZ OINT TP SCH ×2 (09:00→21:09)
[2019-12-26] MEDS: BLOOD SUGAR DIAGNOSTIC 1 EACH STRIP IN SCH ×2 (09:00→21:46)
[2019-12-26] MEDS: OXCARBAZEPINE 150 MG TABLET GT SCH ×2 (09:00→21:09)
[2019-12-26] MEDS: GLUCERNA 1.2 1,000 ML BOTTLE NG PRN (13:20)
[2019-12-26] MEDS: EPOETIN ALFA (4000 UNIT) 4,000 UNIT/ML VIAL SQ SCH (15:00)
[2019-12-26 20:07] VITALS: BP 135/76
[2019-12-26] MEDS: ASCORBIC ACID 500 MG TABLET GT SCH (21:09)
[2019-12-26] MEDS: INSULIN GLARGINE, 100 UNIT/ML CARTRIDGE SQ SCH (21:47)
[2019-12-27] MEDS: GABAPENTIN 300 MG CAPSULE GT SCH ×3 (05:48→21:25)
[2019-12-27] MEDS: OMEPRAZOLE 20 MG CAPSULE.DR GT SCH (05:48)
[2019-12-27] MEDS: METOCLOPRAMIDE HCL 10 MG/10 ML UDC GT SCH ×4 (05:48→23:45)
[2019-12-27 08:01] LABS: BASOPHILS % (AUTO) 0.3 % (0.0-2.0); EOSINOPHILS % (AUTO) 3.5 % (0.0-6.0); HEMATOCRIT 34 % (33-45); HEMOGLOBIN 10.9 g/dL (11.5-14.8); LYMPHOCYTES # (AUTO) 1.6 /CMM (0.8-4.8); MEAN CORPUSCULAR HGB CONC 33 g/dl (31.0-36.0); MEAN CORPUSCULAR VOLUME 104 fL (82-100); MONOCYTES # (AUTO) 1.2 /CMM (0.1-1.30); MONOCYTES % (AUTO) 13.8 % (2.0-12.0); NEUTROPHILS # (AUTO) 5.3 /CMM (1.8-8.9); NEUTROPHILS % (AUTO) 63.4 % (43.0-81.0); PLATELET COUNT (AUTO) 363 /CMM (150-450); RED BLOOD CELL COUNT(AUTO) 3.25 MIL/uL (4.0-5.2); WHITE BLOOD COUNT (AUTO) 8.4 K/uL (4.3-11.0)
[2019-12-27 08:11] VITALS: BP 126/70
[2019-12-27 08:27] LABS: ALBUMIN 2.6 g/dL (3.4-5.0); BILIRUBIN,TOTAL 0.2 mg/dL (0.2-1.0); CREATININE 3.8 mg/dL (0.6-1.3); MAGNESIUM 3.3 mg/dL (1.8-2.4); PHOSPHORUS 5.5 mg/dL (2.5-4.9); POTASSIUM 4.6 mmol/L (3.5-5.1); TOTAL PROTEIN, SERUM 9.6 g/dL (6.4-8.2)
[2019-12-27] MEDS: HYDROGEN PEROXIDE 480 ML BOTTLE TP SCH ×2 (08:31→21:00)
[2019-12-27] MEDS: SIMETHICONE SUSP 40 MG/0.6 ML BOTTLE GT SCH ×2 (09:00→21:25)
[2019-12-27] MEDS: ACIDOPHILUS/BULGARICUS 1 EACH TAB.CHEW GT SCH ×2 (09:00→17:01)
[2019-12-27] MEDS: NEOMY SULF/BACITRAC ZN/POLY 15 GM TUBE TP SCH (09:00)
--- NOTE | 2019-12-27 09:44 | NUR ---
CBC, BMP, Mg and Phos level relayed to Dr. Kumar (BUN 60, Creat 3.8) awaiting for orders. Seen and examined by Dr. Felix, no new order given.
[2019-12-27] MEDS: Z GUARD REMEDY 4 OZ OINT TP SCH ×2 (09:51→21:25)
[2019-12-27] MEDS: BLOOD SUGAR DIAGNOSTIC 1 EACH STRIP IN SCH ×2 (09:51→21:49)
--- NOTE | 2019-12-27 09:55 | NUR ---
PATIENT BLOOD SUGAR IS 112. NO INSULIN COVERAGE NEEDED PER PROTOCOL.
[2019-12-27] MEDS: DOCUSATE SODIUM LIQ 100 MG/10 ML UDC GT SCH (09:57)
[2019-12-27] MEDS: LEVETIRACETAM SOL (5 ML) 100 MG/ML UDC GT SCH ×2 (09:58→21:25)
[2019-12-27] MEDS: MULTIVIT W/MINERALS 1 TAB TABLET GT SCH (09:58)
[2019-12-27] MEDS: SENNOSIDES 8.6 MG TABLET GT SCH ×2 (09:58→21:25)
[2019-12-27] MEDS: OXCARBAZEPINE 150 MG TABLET GT SCH ×2 (09:58→21:25)
[2019-12-27] MEDS: GLUCERNA 1.2 1,000 ML BOTTLE NG PRN (12:35)
[2019-12-27 20:11] VITALS: BP 145/88
[2019-12-27] MEDS: ASCORBIC ACID 500 MG TABLET GT SCH (21:25)
[2019-12-27] MEDS: INSULIN GLARGINE, 100 UNIT/ML CARTRIDGE SQ SCH (21:50)
[2019-12-28] MEDS: GABAPENTIN 300 MG CAPSULE GT SCH ×3 (05:50→20:35)
[2019-12-28] MEDS: METOCLOPRAMIDE HCL 10 MG/10 ML UDC GT SCH ×3 (05:50→18:06)
[2019-12-28] MEDS: OMEPRAZOLE 20 MG CAPSULE.DR GT SCH (05:50)
[2019-12-28] MEDS: GLUCERNA 1.2 1,000 ML BOTTLE NG PRN ×2 (05:50→22:41)
[2019-12-28 07:49] VITALS: BP 126/68
[2019-12-28] MEDS: SIMETHICONE SUSP 40 MG/0.6 ML BOTTLE GT SCH ×2 (09:00→20:35)
[2019-12-28] MEDS: SENNOSIDES 8.6 MG TABLET GT SCH ×2 (09:00→20:35)
[2019-12-28] MEDS: BLOOD SUGAR DIAGNOSTIC 1 EACH STRIP IN SCH ×2 (09:00→21:38)
[2019-12-28] MEDS: HYDROGEN PEROXIDE 480 ML BOTTLE TP SCH ×2 (09:00→19:56)
[2019-12-28] MEDS: Z GUARD REMEDY 4 OZ OINT TP SCH ×2 (09:00→20:35)
[2019-12-28] MEDS: ACIDOPHILUS/BULGARICUS 1 EACH TAB.CHEW GT SCH ×2 (09:00→17:00)
[2019-12-28] MEDS: MULTIVIT W/MINERALS 1 TAB TABLET GT SCH (09:00)
[2019-12-28] MEDS: DOCUSATE SODIUM LIQ 100 MG/10 ML UDC GT SCH (09:00)
[2019-12-28] MEDS: LEVETIRACETAM SOL (5 ML) 100 MG/ML UDC GT SCH ×2 (09:00→20:35)
[2019-12-28] MEDS: OXCARBAZEPINE 150 MG TABLET GT SCH ×2 (09:00→20:35)
[2019-12-28] MEDS: INSULIN REGULAR, HUMAN 100 UNIT/ML 3 ML VIAL SQ PRN ×2 (11:03→11:05)
--- NOTE | 2019-12-28 11:41 | NUR ---
FAMILY INVITATION TO PLAN OF CARE CONFERENCE: This SW called the patient's sister, Beckie Chu [phone] to invite her to the 12/30/2019 12:30-1:30pm IDT meeting. Per Beckie, she is able to participate in IDT. SW will follow up and call Beckie for her participation.
[2019-12-28 20:24] VITALS: BP 142/85
[2019-12-28] MEDS: ASCORBIC ACID 500 MG TABLET GT SCH (20:35)
[2019-12-28] MEDS: INSULIN GLARGINE, 100 UNIT/ML CARTRIDGE SQ SCH (21:39)
[2019-12-29] MEDS: METOCLOPRAMIDE HCL 10 MG/10 ML UDC GT SCH ×5 (00:49→23:23)
[2019-12-29] MEDS: GABAPENTIN 300 MG CAPSULE GT SCH ×3 (05:40→21:19)
[2019-12-29] MEDS: OMEPRAZOLE 20 MG CAPSULE.DR GT SCH (05:40)
[2019-12-29 07:41] VITALS: BP 158/88
[2019-12-29] MEDS: HYDROGEN PEROXIDE 480 ML BOTTLE TP SCH ×2 (08:47→19:52)
[2019-12-29] MEDS: OXCARBAZEPINE 150 MG TABLET GT SCH ×2 (09:00→21:19)
[2019-12-29] MEDS: MULTIVIT W/MINERALS 1 TAB TABLET GT SCH (09:00)
[2019-12-29] MEDS: SENNOSIDES 8.6 MG TABLET GT SCH ×2 (09:00→21:19)
[2019-12-29] MEDS: SIMETHICONE SUSP 40 MG/0.6 ML BOTTLE GT SCH ×2 (09:00→21:19)
[2019-12-29] MEDS: DOCUSATE SODIUM LIQ 100 MG/10 ML UDC GT SCH (09:00)
[2019-12-29] MEDS: ACIDOPHILUS/BULGARICUS 1 EACH TAB.CHEW GT SCH ×2 (09:00→17:39)
[2019-12-29] MEDS: BLOOD SUGAR DIAGNOSTIC 1 EACH STRIP IN SCH ×2 (09:00→21:20)
[2019-12-29] MEDS: LEVETIRACETAM SOL (5 ML) 100 MG/ML UDC GT SCH ×2 (09:00→21:19)
[2019-12-29] MEDS: Z GUARD REMEDY 4 OZ OINT TP SCH ×2 (09:00→21:20)
[2019-12-29] MEDS: INSULIN REGULAR, HUMAN 100 UNIT/ML 3 ML VIAL SQ PRN ×2 (10:45→21:21)
[2019-12-29] MEDS: EPOETIN ALFA (4000 UNIT) 4,000 UNIT/ML VIAL SQ SCH (15:00)
--- NOTE | 2019-12-29 15:06 | NUR ---
Facility Update: Per [employer]'s request, this SW called the patient's sister/Conservator, Beckie Chu [phone] to notify her that a Sub-Acute employee has tested positive for COVID-19. SW notified families that [facility] is following infection control guidelines at outlined by the [place] Department of Public Health. SW also informed family that all of the residents and staff will be re-tested for COVID-19. Beckie expressed understanding and was agreeable to plan. SW will be available as needed to support the patient and their family as needed.
[2019-12-29] MEDS: GLUCERNA 1.2 1,000 ML BOTTLE NG PRN (18:38)
[2019-12-29 20:19] VITALS: BP 114/64
[2019-12-29] MEDS: ASCORBIC ACID 500 MG TABLET GT SCH (21:19)
[2019-12-29] MEDS: INSULIN GLARGINE, 100 UNIT/ML CARTRIDGE SQ SCH (21:20)
[2019-12-30] MEDS: OMEPRAZOLE 20 MG CAPSULE.DR GT SCH (05:03)
[2019-12-30] MEDS: METOCLOPRAMIDE HCL 10 MG/10 ML UDC GT SCH ×3 (05:03→17:40)
[2019-12-30] MEDS: GABAPENTIN 300 MG CAPSULE GT SCH ×3 (05:03→21:15)
[2019-12-30 07:59] VITALS: BP 110/75
[2019-12-30] MEDS: MULTIVIT W/MINERALS 1 TAB TABLET GT SCH (09:00)
[2019-12-30] MEDS: DOCUSATE SODIUM LIQ 100 MG/10 ML UDC GT SCH (09:00)
[2019-12-30] MEDS: BLOOD SUGAR DIAGNOSTIC 1 EACH STRIP IN SCH ×2 (09:00→21:33)
[2019-12-30] MEDS: OXCARBAZEPINE 150 MG TABLET GT SCH ×2 (09:00→21:15)
[2019-12-30] MEDS: Z GUARD REMEDY 4 OZ OINT TP SCH ×2 (09:00→21:16)
[2019-12-30] MEDS: LEVETIRACETAM SOL (5 ML) 100 MG/ML UDC GT SCH ×2 (09:00→21:15)
[2019-12-30] MEDS: SENNOSIDES 8.6 MG TABLET GT SCH ×2 (09:00→21:15)
[2019-12-30] MEDS: ACIDOPHILUS/BULGARICUS 1 EACH TAB.CHEW GT SCH ×2 (09:00→17:40)
[2019-12-30] MEDS: SIMETHICONE SUSP 40 MG/0.6 ML BOTTLE GT SCH ×2 (09:00→21:15)
[2019-12-30] MEDS: HYDROGEN PEROXIDE 480 ML BOTTLE TP SCH ×2 (09:35→21:00)
[2019-12-30 10:22] LABS: BASOPHILS % (AUTO) 0.5 % (0.0-2.0); EOSINOPHILS % (AUTO) 5.4 % (0.0-6.0); HEMATOCRIT 33 % (33-45); HEMOGLOBIN 10.8 g/dL (11.5-14.8); LYMPHOCYTES # (AUTO) 1.2 /CMM (0.8-4.8); LYMPHOCYTES % (AUTO) 17.2 % (20.0-44.0); MEAN CORPUSCULAR HGB CONC 33 g/dl (31.0-36.0); MEAN CORPUSCULAR VOLUME 100 fL (82-100); MONOCYTES # (AUTO) 0.8 /CMM (0.1-1.30); NEUTROPHILS # (AUTO) 4.5 /CMM (1.8-8.9); NEUTROPHILS % (AUTO) 64.9 % (43.0-81.0); PLATELET COUNT (AUTO) 335 /CMM (150-450); RED BLOOD CELL COUNT(AUTO) 3.29 MIL/uL (4.0-5.2)
[2019-12-30 10:43] LABS: ALBUMIN 2.5 g/dL (3.4-5.0); BILIRUBIN,TOTAL 0.2 mg/dL (0.2-1.0); CALCIUM, SERUM 10.4 mg/dL (8.5-10.1); CREATININE 3.7 mg/dL (0.6-1.3); MAGNESIUM 3.1 mg/dL (1.8-2.4); PHOSPHORUS 5.8 mg/dL (2.5-4.9); POTASSIUM 4.4 mmol/L (3.5-5.1); TOTAL PROTEIN, SERUM 9.1 g/dL (6.4-8.2)
[2019-12-30] MEDS: GLUCERNA 1.2 1,000 ML BOTTLE NG PRN (13:09)
--- NOTE | 2019-12-30 15:26 | NUR ---
INTERDISCIPLINARY PLAN OF CARE CONFERENCE was held today. The patients conservator, Beckie Chu [phone] participated in IDT meeting. Charge nurse discussed Midline placed in left upper arm; 12/17 order for CBC, CMP, Mg, Phos on 12/18. Dr. Felix and Interdisciplinary team discussed the plan of care in detail. Current orders as well as treatments and medications were reviewed. See other disciplines IDT notes for further details.
--- NOTE | 2019-12-30 17:00 | NUR ---
Lab results sent to Dr. Kumar, no new order given.
[2019-12-30 20:09] VITALS: BP 109/71
[2019-12-30] MEDS: ASCORBIC ACID 500 MG TABLET GT SCH (21:15)
[2019-12-30] MEDS: INSULIN GLARGINE, 100 UNIT/ML CARTRIDGE SQ SCH (21:34)
[2019-12-31] MEDS: METOCLOPRAMIDE HCL 10 MG/10 ML UDC GT SCH ×5 (00:12→23:47)
[2019-12-31] MEDS: INSULIN REGULAR, HUMAN 100 UNIT/ML 3 ML VIAL SQ PRN ×2 (00:13→09:10)
[2019-12-31] MEDS: GABAPENTIN 300 MG CAPSULE GT SCH ×3 (05:37→21:00)
[2019-12-31] MEDS: OMEPRAZOLE 20 MG CAPSULE.DR GT SCH (05:37)
[2019-12-31] MEDS: GLUCERNA 1.2 1,000 ML BOTTLE NG PRN ×2 (05:39→23:03)
[2019-12-31 07:49] VITALS: BP 122/82
[2019-12-31] MEDS: HYDROGEN PEROXIDE 480 ML BOTTLE TP SCH ×2 (08:28→21:00)
[2019-12-31] MEDS: SENNOSIDES 8.6 MG TABLET GT SCH ×2 (09:06→21:00)
[2019-12-31] MEDS: DOCUSATE SODIUM LIQ 100 MG/10 ML UDC GT SCH (09:06)
[2019-12-31] MEDS: ACIDOPHILUS/BULGARICUS 1 EACH TAB.CHEW GT SCH ×2 (09:06→16:54)
[2019-12-31] MEDS: SIMETHICONE SUSP 40 MG/0.6 ML BOTTLE GT SCH ×2 (09:06→21:00)
[2019-12-31] MEDS: BLOOD SUGAR DIAGNOSTIC 1 EACH STRIP IN SCH ×2 (09:09→21:00)
[2019-12-31] MEDS: MULTIVIT W/MINERALS 1 TAB TABLET GT SCH (09:09)
[2019-12-31] MEDS: OXCARBAZEPINE 150 MG TABLET GT SCH ×2 (09:09→21:00)
[2019-12-31] MEDS: Z GUARD REMEDY 4 OZ OINT TP SCH ×2 (09:09→21:00)
[2019-12-31] MEDS: LEVETIRACETAM SOL (5 ML) 100 MG/ML UDC GT SCH ×2 (09:09→21:00)
--- NOTE | 2019-12-31 16:23 | NUR ---
Informed Beckie that Covid-19 test came back negative.
--- NOTE | 2019-12-31 16:56 | NUR ---
RT NOTE PATIENT RECEIVED ON MECHANICAL VENT WITH ORDERED SETTINGS, AND ALARMS ON/AUDIBLE. VENT PLUGGED IN TO THE RED OUTLET. TRACH TUBE IN PLACE, PATENT, AND SECURED WITH TRACH TIE. AMBU BAG AND BACK UP TRACH BY THE BEDSIDE. NO DISTRESS AT THIS TIME. MONITOR THROUGHOUT SHIFT.
[2019-12-31 20:13] VITALS: BP 119/70
--- NOTE | 2019-12-31 20:40 | NUR ---
Charge nurse received a phone call from Dr. Rodriges. She stated that she wants to do Bone Marrow Biopsy. She asked for the DPOA and charge nurse gave her the number of the sister Beckie Chu [phone]. She said she will give the sister a call.
[2019-12-31] MEDS: ASCORBIC ACID 500 MG TABLET GT SCH (21:00)
[2019-12-31] MEDS: INSULIN GLARGINE, 100 UNIT/ML CARTRIDGE SQ SCH (22:03)
[2020-01-01] MEDS: METOCLOPRAMIDE HCL 10 MG/10 ML UDC GT SCH ×3 (05:29→17:12)
[2020-01-01] MEDS: GABAPENTIN 300 MG CAPSULE GT SCH ×3 (05:29→21:00)
[2020-01-01] MEDS: OMEPRAZOLE 20 MG CAPSULE.DR GT SCH (05:29)
[2020-01-01 07:39] VITALS: BP 116/65
[2020-01-01] MEDS: HYDROGEN PEROXIDE 480 ML BOTTLE TP SCH ×2 (09:00→21:00)
[2020-01-01] MEDS: LEVETIRACETAM SOL (5 ML) 100 MG/ML UDC GT SCH ×2 (09:48→21:00)
[2020-01-01] MEDS: ACIDOPHILUS/BULGARICUS 1 EACH TAB.CHEW GT SCH ×2 (09:48→17:10)
[2020-01-01] MEDS: DOCUSATE SODIUM LIQ 100 MG/10 ML UDC GT SCH (09:48)
[2020-01-01] MEDS: SIMETHICONE SUSP 40 MG/0.6 ML BOTTLE GT SCH ×2 (09:48→21:00)
[2020-01-01] MEDS: Z GUARD REMEDY 4 OZ OINT TP SCH ×2 (09:49→21:00)
[2020-01-01] MEDS: MULTIVIT W/MINERALS 1 TAB TABLET GT SCH (09:49)
[2020-01-01] MEDS: OXCARBAZEPINE 150 MG TABLET GT SCH ×2 (09:49→21:00)
[2020-01-01] MEDS: SENNOSIDES 8.6 MG TABLET GT SCH ×2 (09:49→21:00)
[2020-01-01] MEDS: BLOOD SUGAR DIAGNOSTIC 1 EACH STRIP IN SCH ×2 (09:49→21:30)
[2020-01-01] MEDS: INSULIN REGULAR, HUMAN 100 UNIT/ML 3 ML VIAL SQ PRN (09:50)
[2020-01-01] MEDS: GLUCERNA 1.2 1,000 ML BOTTLE NG PRN (18:35)
[2020-01-01 20:46] VITALS: BP 119/70
[2020-01-01] MEDS: ASCORBIC ACID 500 MG TABLET GT SCH (21:00)
[2020-01-01] MEDS: INSULIN GLARGINE, 100 UNIT/ML CARTRIDGE SQ SCH (21:30)
[2020-01-02] MEDS: METOCLOPRAMIDE HCL 10 MG/10 ML UDC GT SCH ×5 (00:18→23:09)
[2020-01-02] MEDS: GABAPENTIN 300 MG CAPSULE GT SCH ×3 (05:23→21:32)
[2020-01-02] MEDS: OMEPRAZOLE 20 MG CAPSULE.DR GT SCH (05:23)
[2020-01-02 07:24] LABS: HEMOGLOBIN 10.9 g/dL (11.5-14.8)
[2020-01-02] MEDS: HYDROGEN PEROXIDE 480 ML BOTTLE TP SCH ×2 (08:44→21:00)
[2020-01-02] MEDS: SIMETHICONE SUSP 40 MG/0.6 ML BOTTLE GT SCH ×2 (09:21→21:32)
[2020-01-02] MEDS: LEVETIRACETAM SOL (5 ML) 100 MG/ML UDC GT SCH ×2 (09:21→21:32)
[2020-01-02] MEDS: ACIDOPHILUS/BULGARICUS 1 EACH TAB.CHEW GT SCH ×2 (09:21→17:05)
[2020-01-02] MEDS: OXCARBAZEPINE 150 MG TABLET GT SCH ×2 (09:21→21:32)
[2020-01-02] MEDS: Z GUARD REMEDY 4 OZ OINT TP SCH ×2 (09:21→21:32)
[2020-01-02] MEDS: MULTIVIT W/MINERALS 1 TAB TABLET GT SCH (09:21)
[2020-01-02] MEDS: BLOOD SUGAR DIAGNOSTIC 1 EACH STRIP IN SCH ×2 (09:21→21:32)
[2020-01-02] MEDS: DOCUSATE SODIUM LIQ 100 MG/10 ML UDC GT SCH (09:21)
[2020-01-02] MEDS: SENNOSIDES 8.6 MG TABLET GT SCH ×2 (09:21→21:32)
[2020-01-02 12:02] VITALS: BP 134/78
[2020-01-02] MEDS: GLUCERNA 1.2 1,000 ML BOTTLE NG PRN (15:41)
[2020-01-02] MEDS: EPOETIN ALFA (4000 UNIT) 4,000 UNIT/ML VIAL SQ SCH (15:43)
[2020-01-02 20:39] VITALS: BP 140/78
[2020-01-02] MEDS: ASCORBIC ACID 500 MG TABLET GT SCH (21:32)
[2020-01-02] MEDS: INSULIN GLARGINE, 100 UNIT/ML CARTRIDGE SQ SCH (21:33)
[2020-01-03] MEDS: GABAPENTIN 300 MG CAPSULE GT SCH ×3 (05:35→21:18)
[2020-01-03] MEDS: OMEPRAZOLE 20 MG CAPSULE.DR GT SCH (05:35)
[2020-01-03] MEDS: METOCLOPRAMIDE HCL 10 MG/10 ML UDC GT SCH ×4 (05:35→23:09)
[2020-01-03 07:45] LABS: BASOPHILS % (AUTO) 0.5 % (0.0-2.0); EOSINOPHILS % (AUTO) 7.4 % (0.0-6.0); HEMATOCRIT 33 % (33-45); LYMPHOCYTES # (AUTO) 2.1 /CMM (0.8-4.8); LYMPHOCYTES % (AUTO) 24.7 % (20.0-44.0); MEAN CORPUSCULAR HGB CONC 33 g/dl (31.0-36.0); MEAN CORPUSCULAR VOLUME 100 fL (82-100); MONOCYTES # (AUTO) 0.9 /CMM (0.1-1.30); MONOCYTES % (AUTO) 10.5 % (2.0-12.0); NEUTROPHILS # (AUTO) 4.8 /CMM (1.8-8.9); NEUTROPHILS % (AUTO) 56.9 % (43.0-81.0); PLATELET COUNT (AUTO) 305 /CMM (150-450); RED BLOOD CELL COUNT(AUTO) 3.34 MIL/uL (4.0-5.2); WHITE BLOOD COUNT (AUTO) 8.5 K/uL (4.3-11.0)
[2020-01-03 07:46] LABS: BILIRUBIN,TOTAL 0.2 mg/dL (0.2-1.0); CALCIUM, SERUM 11.1 mg/dL (8.5-10.1); MAGNESIUM 3.3 mg/dL (1.8-2.4); PHOSPHORUS 5.7 mg/dL (2.5-4.9); POTASSIUM 4.2 mmol/L (3.5-5.1); TOTAL PROTEIN, SERUM 9.7 g/dL (6.4-8.2)
[2020-01-03 07:52] LABS: ALBUMIN 2.6 g/dL (3.4-5.0)
[2020-01-03] MEDS: HYDROGEN PEROXIDE 480 ML BOTTLE TP SCH ×2 (08:17→21:44)
[2020-01-03] MEDS: MULTIVIT W/MINERALS 1 TAB TABLET GT SCH (08:45)
[2020-01-03] MEDS: ACIDOPHILUS/BULGARICUS 1 EACH TAB.CHEW GT SCH ×2 (08:45→17:30)
[2020-01-03] MEDS: LEVETIRACETAM SOL (5 ML) 100 MG/ML UDC GT SCH ×2 (08:45→21:17)
[2020-01-03] MEDS: SIMETHICONE SUSP 40 MG/0.6 ML BOTTLE GT SCH ×2 (08:45→21:18)
[2020-01-03] MEDS: SENNOSIDES 8.6 MG TABLET GT SCH ×2 (08:45→21:18)
[2020-01-03] MEDS: DOCUSATE SODIUM LIQ 100 MG/10 ML UDC GT SCH (08:45)
[2020-01-03] MEDS: OXCARBAZEPINE 150 MG TABLET GT SCH ×2 (08:46→21:18)
[2020-01-03] MEDS: Z GUARD REMEDY 4 OZ OINT TP SCH ×2 (08:46→21:18)
[2020-01-03] MEDS: INSULIN REGULAR, HUMAN 100 UNIT/ML 3 ML VIAL SQ PRN (08:46)
[2020-01-03] MEDS: BLOOD SUGAR DIAGNOSTIC 1 EACH STRIP IN SCH ×2 (08:46→21:39)
--- NOTE | 2020-01-03 10:30 | NUR ---
Relayed lab results to Dr Kumar. No new order at this time.
[2020-01-03 11:18] VITALS: BP 139/78
[2020-01-03] MEDS: GLUCERNA 1.2 1,000 ML BOTTLE NG PRN (14:15)
[2020-01-03 20:21] VITALS: BP 149/67
[2020-01-03] MEDS: ASCORBIC ACID 500 MG TABLET GT SCH (21:18)
[2020-01-03] MEDS: INSULIN GLARGINE, 100 UNIT/ML CARTRIDGE SQ SCH (21:40)
--- NOTE | 2020-01-04 05:00 | NUR ---
RN NOTES Collected specimen for Covid testing. Pt tolerated well. Specimen sent to lab.
[2020-01-04] MEDS: METOCLOPRAMIDE HCL 10 MG/10 ML UDC GT SCH ×3 (05:22→17:38)
[2020-01-04] MEDS: GABAPENTIN 300 MG CAPSULE GT SCH ×3 (05:22→21:29)
[2020-01-04] MEDS: OMEPRAZOLE 20 MG CAPSULE.DR GT SCH (05:22)
[2020-01-04 07:52] VITALS: BP 141/66
[2020-01-04] MEDS: DOCUSATE SODIUM LIQ 100 MG/10 ML UDC GT SCH (09:00)
[2020-01-04] MEDS: SIMETHICONE SUSP 40 MG/0.6 ML BOTTLE GT SCH ×2 (09:00→21:29)
[2020-01-04] MEDS: LEVETIRACETAM SOL (5 ML) 100 MG/ML UDC GT SCH ×2 (09:00→21:29)
[2020-01-04] MEDS: BLOOD SUGAR DIAGNOSTIC 1 EACH STRIP IN SCH ×2 (09:00→21:30)
[2020-01-04] MEDS: ACIDOPHILUS/BULGARICUS 1 EACH TAB.CHEW GT SCH ×2 (09:00→17:38)
[2020-01-04] MEDS: MULTIVIT W/MINERALS 1 TAB TABLET GT SCH (09:00)
[2020-01-04] MEDS: Z GUARD REMEDY 4 OZ OINT TP SCH ×2 (09:00→21:30)
[2020-01-04] MEDS: OXCARBAZEPINE 150 MG TABLET GT SCH ×2 (09:00→21:30)
[2020-01-04] MEDS: SENNOSIDES 8.6 MG TABLET GT SCH ×2 (09:00→21:29)
[2020-01-04] MEDS: HYDROGEN PEROXIDE 480 ML BOTTLE TP SCH ×2 (09:25→19:37)
[2020-01-04] MEDS: GLUCERNA 1.2 1,000 ML BOTTLE NG PRN (13:03)
[2020-01-04 20:36] VITALS: BP 135/64
[2020-01-04] MEDS: ASCORBIC ACID 500 MG TABLET GT SCH (21:30)
[2020-01-04] MEDS: INSULIN GLARGINE, 100 UNIT/ML CARTRIDGE SQ SCH (21:31)
[2020-01-04] MEDS: INSULIN REGULAR, HUMAN 100 UNIT/ML 3 ML VIAL SQ PRN (21:32)
[2020-01-05] MEDS: METOCLOPRAMIDE HCL 10 MG/10 ML UDC GT SCH ×5 (00:41→23:25)
--- NOTE | 2020-01-05 02:05 | NUR ---
RN NOTES Received called from [facility] TEST RESULT NEGATIVE.
[2020-01-05] MEDS: GABAPENTIN 300 MG CAPSULE GT SCH ×3 (05:23→20:29)
[2020-01-05] MEDS: OMEPRAZOLE 20 MG CAPSULE.DR GT SCH (05:23)
[2020-01-05] MEDS: GLUCERNA 1.2 1,000 ML BOTTLE NG PRN ×2 (05:23→23:51)
[2020-01-05 07:07] LABS: HEMOGLOBIN 12.3 g/dL (11.5-14.8)
[2020-01-05 07:39] VITALS: BP 137/76
[2020-01-05] MEDS: HYDROGEN PEROXIDE 480 ML BOTTLE TP SCH ×2 (09:00→19:51)
[2020-01-05] MEDS: SIMETHICONE SUSP 40 MG/0.6 ML BOTTLE GT SCH ×2 (09:43→20:29)
[2020-01-05] MEDS: DOCUSATE SODIUM LIQ 100 MG/10 ML UDC GT SCH (09:43)
[2020-01-05] MEDS: MULTIVIT W/MINERALS 1 TAB TABLET GT SCH (09:43)
[2020-01-05] MEDS: ACIDOPHILUS/BULGARICUS 1 EACH TAB.CHEW GT SCH ×2 (09:43→17:44)
[2020-01-05] MEDS: OXCARBAZEPINE 150 MG TABLET GT SCH ×2 (09:43→20:29)
[2020-01-05] MEDS: LEVETIRACETAM SOL (5 ML) 100 MG/ML UDC GT SCH ×2 (09:43→20:29)
[2020-01-05] MEDS: BLOOD SUGAR DIAGNOSTIC 1 EACH STRIP IN SCH ×2 (09:43→21:14)
[2020-01-05] MEDS: SENNOSIDES 8.6 MG TABLET GT SCH ×2 (09:43→20:29)
[2020-01-05] MEDS: Z GUARD REMEDY 4 OZ OINT TP SCH ×2 (09:44→20:29)
--- NOTE | 2020-01-05 17:47 | NUR ---
Dr Kumar ordered to decrease Epogen 8000 units SC twice a week to once a week. Notified Beckie.
--- NOTE | 2020-01-05 19:22 | NUR ---
Informed family that an asymptomatic staff tested positive for Covid-19 with routine testing, pt will be tested weekly for Covid-19. Pt asymptomatic.
--- NOTE | 2020-01-05 19:23 | NUR ---
Pt was seen by Dr Luis today. Showed him blood-tinged output from nephrostomy. Hgb 12.3. No new order.
[2020-01-05 19:37] VITALS: BP 117/75
[2020-01-05] MEDS: ASCORBIC ACID 500 MG TABLET GT SCH (20:29)
[2020-01-05] MEDS: INSULIN GLARGINE, 100 UNIT/ML CARTRIDGE SQ SCH (21:15)
[2020-01-05] MEDS: INSULIN REGULAR, HUMAN 100 UNIT/ML 3 ML VIAL SQ PRN (21:16)
--- NOTE | 2020-01-05 21:33 | NUR ---
@ 1900 rcvd pt with hematuria from Nephrostomy; per endorsing nurse made aware. @2129 PLEAT PATTERNMAKER reported to ENAMEL SHADER pt with wound to right buttock- RN updated and wound photo taken- wound measuring @ 1.5 cm x 2.0 cm- cleansed wound with ns, gently pat dry and applied mepilex @ this time, wound consult initiated. Will cont to monitor pt and reposition Q 2 hrs.
[2020-01-06] MEDS: METOCLOPRAMIDE HCL 10 MG/10 ML UDC GT SCH ×3 (05:12→17:12)
[2020-01-06] MEDS: GABAPENTIN 300 MG CAPSULE GT SCH ×3 (05:12→20:20)
[2020-01-06] MEDS: OMEPRAZOLE 20 MG CAPSULE.DR GT SCH (05:12)
--- NOTE | 2020-01-06 06:38 | NUR ---
Nephrostomy output of 350 cc still with Hematuria Maher Cath output of 600 cc yellow urine with blood tinged noted- irrigated maher with sterile water, and flushed Nephrostomy tube with 10 cc NS. Pt kept clean and comfortable, repositioned Q 2 hrs. Will endorse to am oncoming nurse pt's wound on r. buttock to notify responsible republican. Safety measures observed.
[2020-01-06] MEDS: HYDROGEN PEROXIDE 480 ML BOTTLE TP SCH ×2 (07:37→20:05)
[2020-01-06 07:40] VITALS: BP 129/77
--- NOTE | 2020-01-06 08:35 | NUR ---
Wound nurse Jaye seen and examined right buttock open skin, ordered new treatment. Will continue to monitor.
--- NOTE | 2020-01-06 08:43 | NUR ---
WOUND CARE CONSULT: PT SEEN FOR RT BUTTOCK RASH WITH INCONTINENCE ASSOCIATED SKIN DAMAGE. THERE IS OPEN SKIN WITH SURROUNDING DISCOLORATION AND SKIN PEELING. PT NOTED TO BE INCONTINENT OF LARGE AMOUNT OF LOOSE STOOL. RECOMMENDATIONS MADE FOR SKIN CARE AND PROTECTION: CLEANSE WITH SOAP AND WATER, APPLY LOTRIMIN CREAM, FOLLOW WITH Z GUARD AND COVER WITH MEPILEX TWICE DAILY. MEPILEX TO BE CHANGED EVERY SHIFT AND PRN SOILING. DISCUSSED WITH NURSING STAFF. ALL SKIN PROTECTION MEASURES IN PLACE INCLUDING FIRST STEP CIRRUS LOW AIRLOSS MATTRESS. MD IN AGREEMENT WITH PLAN OF CARE.
[2020-01-06] MEDS: DOCUSATE SODIUM LIQ 100 MG/10 ML UDC GT SCH (09:00)
[2020-01-06] MEDS: SENNOSIDES 8.6 MG TABLET GT SCH ×2 (09:00→20:20)
[2020-01-06] MEDS: BLOOD SUGAR DIAGNOSTIC 1 EACH STRIP IN SCH ×2 (09:32→21:27)
[2020-01-06] MEDS: ACIDOPHILUS/BULGARICUS 1 EACH TAB.CHEW GT SCH ×2 (09:32→17:12)
[2020-01-06] MEDS: SIMETHICONE SUSP 40 MG/0.6 ML BOTTLE GT SCH ×2 (09:32→20:20)
[2020-01-06] MEDS: OXCARBAZEPINE 150 MG TABLET GT SCH ×2 (09:32→20:20)
[2020-01-06] MEDS: MULTIVIT W/MINERALS 1 TAB TABLET GT SCH (09:32)
[2020-01-06] MEDS: LEVETIRACETAM SOL (5 ML) 100 MG/ML UDC GT SCH ×2 (09:32→20:20)
[2020-01-06] MEDS: Z GUARD REMEDY 4 OZ OINT TP SCH ×2 (09:33→20:20)
[2020-01-06] MEDS: INSULIN REGULAR, HUMAN 100 UNIT/ML 3 ML VIAL SQ PRN (09:49)
[2020-01-06] MEDS: CLOTRIMAZOLE 1% CREAM 24 GM TUBE TP SCH ×2 (12:55→20:20)
--- NOTE | 2020-01-06 15:27 | NUR ---
RT NOTE: RECEIVED TRACH PT ON ORDERED VENT SETTINGS. NO RESPIRATORY DISTRESS NOTED. TRACH CHECKED SECURE AND PATENT. SXD AND LAVAGE Q ROUND AND NEEDED. TRACH CARE DONE. SPARE TRACH AND AMBU BAG @ BEDSIDE. ALARMS CHECKED ON AND AUDIBLE. VENT PLUGGED INTO RED OUTLET.
--- NOTE | 2020-01-06 17:00 | NUR ---
Left a message to Dr. Luis that maher catheter and Nephrostomy output is still bloody. Vital signs stable BP-117/67, HR-88, temp. 98.8F. No signs and symptoms of distress. Will continue to monitor.
[2020-01-06] MEDS: GLUCERNA 1.2 1,000 ML BOTTLE NG PRN (17:12)
--- NOTE | 2020-01-06 18:00 | NUR ---
Beckie was informed that Covid-19 test result is negative. Also informed that she was seen by wound nurse d/t her right buttock open wound. Made aware also that she has bloody maher cath and Nephrostomy output and was aware. Appreciated the call.
[2020-01-06 19:42] VITALS: BP 147/87
[2020-01-06] MEDS: ASCORBIC ACID 500 MG TABLET GT SCH (20:20)
[2020-01-06] MEDS: INSULIN GLARGINE, 100 UNIT/ML CARTRIDGE SQ SCH (21:28)
[2020-01-07] MEDS: METOCLOPRAMIDE HCL 10 MG/10 ML UDC GT SCH ×4 (00:09→17:42)
[2020-01-07] MEDS: GABAPENTIN 300 MG CAPSULE GT SCH ×3 (05:42→21:41)
[2020-01-07] MEDS: OMEPRAZOLE 20 MG CAPSULE.DR GT SCH (05:42)
--- NOTE | 2020-01-07 06:24 | NUR ---
Pt still noted with hematuria to Nephorostomy and Bourgeois cath, VS remain stable, afebrile, no s/sx of resp distress no sz episode noted during shift. Will endorse care and monitoring to am oncoming nurse.
[2020-01-07 07:28] VITALS: BP 138/88
[2020-01-07] MEDS: Z GUARD REMEDY 4 OZ OINT TP SCH ×2 (09:00→21:47)
[2020-01-07] MEDS: CLOTRIMAZOLE 1% CREAM 24 GM TUBE TP SCH ×2 (09:00→21:00)
[2020-01-07] MEDS: HYDROGEN PEROXIDE 480 ML BOTTLE TP SCH ×2 (09:00→21:00)
[2020-01-07] MEDS: DOCUSATE SODIUM LIQ 100 MG/10 ML UDC GT SCH (09:56)
[2020-01-07] MEDS: LEVETIRACETAM SOL (5 ML) 100 MG/ML UDC GT SCH ×2 (09:56→21:41)
[2020-01-07] MEDS: SIMETHICONE SUSP 40 MG/0.6 ML BOTTLE GT SCH ×2 (09:56→21:47)
[2020-01-07] MEDS: ACIDOPHILUS/BULGARICUS 1 EACH TAB.CHEW GT SCH ×2 (09:56→17:32)
[2020-01-07] MEDS: OXCARBAZEPINE 150 MG TABLET GT SCH ×2 (09:57→21:42)
[2020-01-07] MEDS: BLOOD SUGAR DIAGNOSTIC 1 EACH STRIP IN SCH ×2 (09:57→21:00)
[2020-01-07] MEDS: SENNOSIDES 8.6 MG TABLET GT SCH ×2 (09:57→21:42)
[2020-01-07] MEDS: MULTIVIT W/MINERALS 1 TAB TABLET GT SCH (09:57)
[2020-01-07] MEDS: INSULIN REGULAR, HUMAN 100 UNIT/ML 3 ML VIAL SQ PRN (10:01)
--- NOTE | 2020-01-07 11:47 | NUR ---
Monthly trachesostomy tube was changed by Rt, no bleeding, no facial grimacing, patient tolerated well, saturation level ranging between 98-99%, call light within reach.
[2020-01-07] MEDS: GLUCERNA 1.2 1,000 ML BOTTLE NG PRN (14:37)
[2020-01-07 19:41] VITALS: BP 128/68
[2020-01-07 20:06] VITALS: BP 128/68
[2020-01-07] MEDS: ASCORBIC ACID 500 MG TABLET GT SCH (21:43)
[2020-01-07] MEDS: INSULIN GLARGINE, 100 UNIT/ML CARTRIDGE SQ SCH (22:00)
[2020-01-08] MEDS: METOCLOPRAMIDE HCL 10 MG/10 ML UDC GT SCH ×4 (00:30→17:17)
[2020-01-08] MEDS: GABAPENTIN 300 MG CAPSULE GT SCH ×3 (05:10→21:42)
[2020-01-08] MEDS: OMEPRAZOLE 20 MG CAPSULE.DR GT SCH (05:12)
[2020-01-08 07:44] VITALS: BP 128/76
[2020-01-08] MEDS: BLOOD SUGAR DIAGNOSTIC 1 EACH STRIP IN SCH ×2 (09:00→21:58)
[2020-01-08] MEDS: HYDROGEN PEROXIDE 480 ML BOTTLE TP SCH ×2 (09:00→21:00)
[2020-01-08] MEDS: CLOTRIMAZOLE 1% CREAM 24 GM TUBE TP SCH ×2 (09:00→21:47)
[2020-01-08] MEDS: Z GUARD REMEDY 4 OZ OINT TP SCH ×2 (09:00→21:47)
[2020-01-08] MEDS: SENNOSIDES 8.6 MG TABLET GT SCH ×2 (09:57→21:48)
[2020-01-08] MEDS: SIMETHICONE SUSP 40 MG/0.6 ML BOTTLE GT SCH ×2 (09:57→21:42)
[2020-01-08] MEDS: OXCARBAZEPINE 150 MG TABLET GT SCH ×2 (09:57→21:42)
[2020-01-08] MEDS: MULTIVIT W/MINERALS 1 TAB TABLET GT SCH (09:57)
[2020-01-08] MEDS: ACIDOPHILUS/BULGARICUS 1 EACH TAB.CHEW GT SCH ×2 (09:57→17:17)
[2020-01-08] MEDS: LEVETIRACETAM SOL (5 ML) 100 MG/ML UDC GT SCH ×2 (09:57→21:40)
[2020-01-08] MEDS: DOCUSATE SODIUM LIQ 100 MG/10 ML UDC GT SCH (09:57)
[2020-01-08] MEDS: GLUCERNA 1.2 1,000 ML BOTTLE NG PRN (10:34)
[2020-01-08 20:37] VITALS: BP 99/66
[2020-01-08] MEDS: ASCORBIC ACID 500 MG TABLET GT SCH (21:43)
[2020-01-08] MEDS: INSULIN REGULAR, HUMAN 100 UNIT/ML 3 ML VIAL SQ PRN (22:01)
[2020-01-08] MEDS: INSULIN GLARGINE, 100 UNIT/ML CARTRIDGE SQ SCH (22:01)
[2020-01-09] MEDS: METOCLOPRAMIDE HCL 10 MG/10 ML UDC GT SCH ×4 (00:43→17:17)
[2020-01-09] MEDS: GLUCERNA 1.2 1,000 ML BOTTLE NG PRN (04:48)
[2020-01-09] MEDS: GABAPENTIN 300 MG CAPSULE GT SCH ×3 (05:25→21:34)
[2020-01-09] MEDS: OMEPRAZOLE 20 MG CAPSULE.DR GT SCH (05:26)
[2020-01-09 07:03] LABS: HEMOGLOBIN 9.9 g/dL (11.5-14.8)
[2020-01-09 07:53] VITALS: BP 110/79
[2020-01-09] MEDS: HYDROGEN PEROXIDE 480 ML BOTTLE TP SCH ×2 (09:00→20:24)
[2020-01-09] MEDS: DOCUSATE SODIUM LIQ 100 MG/10 ML UDC GT SCH (09:44)
[2020-01-09] MEDS: MULTIVIT W/MINERALS 1 TAB TABLET GT SCH (09:44)
[2020-01-09] MEDS: SIMETHICONE SUSP 40 MG/0.6 ML BOTTLE GT SCH ×2 (09:44→21:34)
[2020-01-09] MEDS: LEVETIRACETAM SOL (5 ML) 100 MG/ML UDC GT SCH ×2 (09:44→21:33)
[2020-01-09] MEDS: ACIDOPHILUS/BULGARICUS 1 EACH TAB.CHEW GT SCH ×2 (09:44→17:16)
[2020-01-09] MEDS: SENNOSIDES 8.6 MG TABLET GT SCH ×2 (09:44→21:34)
[2020-01-09] MEDS: CLOTRIMAZOLE 1% CREAM 24 GM TUBE TP SCH ×2 (09:45→21:35)
[2020-01-09] MEDS: BLOOD SUGAR DIAGNOSTIC 1 EACH STRIP IN SCH ×2 (09:45→21:35)
[2020-01-09] MEDS: OXCARBAZEPINE 150 MG TABLET GT SCH ×2 (09:45→21:34)
[2020-01-09] MEDS: Z GUARD REMEDY 4 OZ OINT TP SCH ×2 (09:45→21:35)
[2020-01-09] MEDS: INSULIN REGULAR, HUMAN 100 UNIT/ML 3 ML VIAL SQ PRN (09:56)
[2020-01-09] MEDS ORDERED: EPOETIN ALFA (4000 UNIT) 4,000 UNIT/ML VIAL SQ SCH (15:00)
[2020-01-09] MEDS ORDERED: GLUCERNA 1.2 1,000 ML BOTTLE NG PRN (18:28)
[2020-01-09 20:24] VITALS: BP 115/61
--- NOTE | 2020-01-09 20:24 | NUR ---
RT NOTE PT RECEIVED TRACHED ON MECHANICAL VENTILATION. CUFF CHECKED VIA JOINT MACHINE OPERATOR. AMBU BAG/BACK UP TRACH @ BEDSIDE. SX DONE, TRACH SECURED AND PATENT. ALARMS ON AND AUDIBLE. NO DISTRESS NOTED AT THIS TIME. WILL MONITOR T/O SHIFT. Addendum: 01/09/20 at 2023 by BRIEN NEAL RT Amended: Links added.
[2020-01-09] MEDS: ASCORBIC ACID 500 MG TABLET GT SCH (21:34)
[2020-01-09] MEDS: INSULIN GLARGINE, 100 UNIT/ML CARTRIDGE SQ SCH (21:58)
[2020-01-09] MEDS: NEPRO 1,000 ML BOTTLE NG PRN (22:05)
--- NOTE | 2020-01-09 23:00 | NUR ---
RN NOTES Collected specimen for Covid testing. Specimen sent to lab.
[2020-01-10] MEDS: METOCLOPRAMIDE HCL 10 MG/10 ML UDC GT SCH ×5 (00:41→23:37)
[2020-01-10] MEDS: GABAPENTIN 300 MG CAPSULE GT SCH ×3 (05:40→21:00)
[2020-01-10] MEDS: OMEPRAZOLE 20 MG CAPSULE.DR GT SCH (05:41)
[2020-01-10 07:36] VITALS: BP 131/72
[2020-01-10] MEDS: HYDROGEN PEROXIDE 480 ML BOTTLE TP SCH ×2 (08:58→20:48)
[2020-01-10] MEDS: SIMETHICONE SUSP 40 MG/0.6 ML BOTTLE GT SCH ×2 (09:34→21:00)
[2020-01-10] MEDS: MULTIVIT W/MINERALS 1 TAB TABLET GT SCH (09:34)
[2020-01-10] MEDS: CLOTRIMAZOLE 1% CREAM 24 GM TUBE TP SCH ×2 (09:34→21:58)
[2020-01-10] MEDS: ACIDOPHILUS/BULGARICUS 1 EACH TAB.CHEW GT SCH ×2 (09:34→17:36)
[2020-01-10] MEDS: Z GUARD REMEDY 4 OZ OINT TP SCH ×2 (09:34→21:58)
[2020-01-10] MEDS: LEVETIRACETAM SOL (5 ML) 100 MG/ML UDC GT SCH ×2 (09:34→21:57)
[2020-01-10] MEDS: BLOOD SUGAR DIAGNOSTIC 1 EACH STRIP IN SCH ×2 (09:34→21:00)
[2020-01-10] MEDS: SENNOSIDES 8.6 MG TABLET GT SCH ×2 (09:34→21:00)
[2020-01-10] MEDS: DOCUSATE SODIUM LIQ 100 MG/10 ML UDC GT SCH (09:34)
[2020-01-10] MEDS: OXCARBAZEPINE 150 MG TABLET GT SCH ×2 (09:34→21:00)
[2020-01-10] MEDS: INSULIN REGULAR, HUMAN 100 UNIT/ML 3 ML VIAL SQ PRN ×2 (09:46→22:23)
[2020-01-10 20:05] VITALS: BP 112/73
[2020-01-10] MEDS: ASCORBIC ACID 500 MG TABLET GT SCH (21:00)
--- NOTE | 2020-01-10 21:09 | NUR ---
RT NOTE PT RECEIVED TRACHED ON MECHANICAL VENTILATION. CUFF CHECKED VIA STOCK SAW OPERATOR. AMBU BAG/BACK UP TRACH @ BEDSIDE. SX DONE, TRACH SECURED AND PATENT. ALARMS ON AND AUDIBLE. NO DISTRESS NOTED AT THIS TIME. WILL MONITOR T/O SHIFT. Addendum: 01/10/20 at 2109 by BRIEN NEAL RT Amended: Links added.
[2020-01-10] MEDS: INSULIN GLARGINE, 100 UNIT/ML CARTRIDGE SQ SCH (22:11)
[2020-01-11] MEDS: GABAPENTIN 300 MG CAPSULE GT SCH ×3 (05:00→21:30)
[2020-01-11] MEDS: OMEPRAZOLE 20 MG CAPSULE.DR GT SCH (06:49)
[2020-01-11] MEDS: METOCLOPRAMIDE HCL 10 MG/10 ML UDC GT SCH ×4 (06:50→23:42)
[2020-01-11 07:15] LABS: BASOPHILS # (AUTO) 0.1 /CMM (0.0-0.2); BASOPHILS % (AUTO) 0.6 % (0.0-2.0); EOSINOPHILS % (AUTO) 7.2 % (0.0-6.0); HEMATOCRIT 32 % (33-45); HEMOGLOBIN 10.7 g/dL (11.5-14.8); MEAN CORPUSCULAR HGB CONC 34 g/dl (31.0-36.0); MEAN CORPUSCULAR VOLUME 100 fL (82-100); MONOCYTES # (AUTO) 0.9 /CMM (0.1-1.30); MONOCYTES % (AUTO) 10.2 % (2.0-12.0); NEUTROPHILS # (AUTO) 5.5 /CMM (1.8-8.9); PLATELET COUNT (AUTO) 327 /CMM (150-450); RED BLOOD CELL COUNT(AUTO) 3.16 MIL/uL (4.0-5.2); WHITE BLOOD COUNT (AUTO) 9.1 K/uL (4.3-11.0)
[2020-01-11 07:32] VITALS: BP 118/74
[2020-01-11 07:44] LABS: ALBUMIN 2.5 g/dL (3.4-5.0); BILIRUBIN,TOTAL 0.2 mg/dL (0.2-1.0); CALCIUM, SERUM 10.6 mg/dL (8.5-10.1); CREATININE 4.4 mg/dL (0.6-1.3); MAGNESIUM 3.3 mg/dL (1.8-2.4); PHOSPHORUS 4.9 mg/dL (2.5-4.9); POTASSIUM 3.9 mmol/L (3.5-5.1); TOTAL PROTEIN, SERUM 9.8 g/dL (6.4-8.2)
--- NOTE | 2020-01-11 08:05 | NUR ---
Lab called and relayed critical lab result BUN - 86.
--- NOTE | 2020-01-11 08:15 | NUR ---
Called and left message to Dr. Kumar regarding patients' critical lab result BUN - 86. Waiting for call back.
[2020-01-11] MEDS: HYDROGEN PEROXIDE 480 ML BOTTLE TP SCH ×2 (08:58→20:02)
--- NOTE | 2020-01-11 09:00 | NUR ---
Called Dr. Glover' office and followed up with office staff (spoke to jonelle) regarding patients' critical lab results BUN - 86, she said she will relay it to Dr. Kumar.
[2020-01-11] MEDS: MULTIVIT W/MINERALS 1 TAB TABLET GT SCH (09:42)
[2020-01-11] MEDS: DOCUSATE SODIUM LIQ 100 MG/10 ML UDC GT SCH (09:42)
[2020-01-11] MEDS: LEVETIRACETAM SOL (5 ML) 100 MG/ML UDC GT SCH ×2 (09:42→21:30)
[2020-01-11] MEDS: BLOOD SUGAR DIAGNOSTIC 1 EACH STRIP IN SCH ×2 (09:42→21:30)
[2020-01-11] MEDS: SIMETHICONE SUSP 40 MG/0.6 ML BOTTLE GT SCH ×2 (09:42→21:30)
[2020-01-11] MEDS: OXCARBAZEPINE 150 MG TABLET GT SCH ×2 (09:42→21:30)
[2020-01-11] MEDS: SENNOSIDES 8.6 MG TABLET GT SCH ×2 (09:42→21:30)
[2020-01-11] MEDS: ACIDOPHILUS/BULGARICUS 1 EACH TAB.CHEW GT SCH ×2 (09:42→17:26)
[2020-01-11] MEDS: CLOTRIMAZOLE 1% CREAM 24 GM TUBE TP SCH ×2 (09:43→21:30)
[2020-01-11] MEDS: Z GUARD REMEDY 4 OZ OINT TP SCH ×2 (09:43→21:30)
--- NOTE | 2020-01-11 15:00 | NUR ---
Called office of Dr. Glover' office and spoke to Aubrie, followed up again regarding call this morning on elevated BUN 8She said she will text . waiting for call back.
--- NOTE | 2020-01-11 15:10 | NUR ---
Dr. Kumar called, relayed to him critical lab result BUN 86. He stated he is looking at the computer right now. No new orders yet at this time. Patient not in distress, no fever. Closely monitored.
[2020-01-11 20:54] VITALS: BP 120/66
[2020-01-11] MEDS: ASCORBIC ACID 500 MG TABLET GT SCH (21:00)
[2020-01-11] MEDS: INSULIN GLARGINE, 100 UNIT/ML CARTRIDGE SQ SCH (22:07)
[2020-01-12] MEDS: METOCLOPRAMIDE HCL 10 MG/10 ML UDC GT SCH ×4 (05:55→23:52)
[2020-01-12] MEDS: OMEPRAZOLE 20 MG CAPSULE.DR GT SCH (05:55)
[2020-01-12] MEDS: GABAPENTIN 300 MG CAPSULE GT SCH ×3 (05:55→21:11)
[2020-01-12 07:28] LABS: HEMOGLOBIN 10.4 g/dL (11.5-14.8)
[2020-01-12 08:05] VITALS: BP 129/61
[2020-01-12] MEDS: HYDROGEN PEROXIDE 480 ML BOTTLE TP SCH ×2 (09:24→19:25)
[2020-01-12] MEDS: SIMETHICONE SUSP 40 MG/0.6 ML BOTTLE GT SCH ×2 (09:37→21:11)
[2020-01-12] MEDS: OXCARBAZEPINE 150 MG TABLET GT SCH ×2 (09:37→21:11)
[2020-01-12] MEDS: LEVETIRACETAM SOL (5 ML) 100 MG/ML UDC GT SCH ×2 (09:37→21:11)
[2020-01-12] MEDS: DOCUSATE SODIUM LIQ 100 MG/10 ML UDC GT SCH (09:37)
[2020-01-12] MEDS: ACIDOPHILUS/BULGARICUS 1 EACH TAB.CHEW GT SCH ×2 (09:37→17:00)
[2020-01-12] MEDS: MULTIVIT W/MINERALS 1 TAB TABLET GT SCH (09:37)
[2020-01-12] MEDS: SENNOSIDES 8.6 MG TABLET GT SCH ×2 (09:37→21:11)
[2020-01-12] MEDS: Z GUARD REMEDY 4 OZ OINT TP SCH ×2 (09:38→21:12)
[2020-01-12] MEDS: BLOOD SUGAR DIAGNOSTIC 1 EACH STRIP IN SCH ×2 (09:38→21:18)
[2020-01-12] MEDS: CLOTRIMAZOLE 1% CREAM 24 GM TUBE TP SCH ×2 (09:38→21:12)
[2020-01-12] MEDS: INSULIN REGULAR, HUMAN 100 UNIT/ML 3 ML VIAL SQ PRN ×2 (09:52→21:19)
[2020-01-12] MEDS: IV NS 0.9% 1,000 ML IV SCH ×2 (10:30→21:26)
[2020-01-12 20:07] VITALS: BP 124/50
[2020-01-12] MEDS: ASCORBIC ACID 500 MG TABLET GT SCH (21:12)
[2020-01-12] MEDS: INSULIN GLARGINE, 100 UNIT/ML CARTRIDGE SQ SCH (21:22)
[2020-01-13] MEDS: GABAPENTIN 300 MG CAPSULE GT SCH ×3 (05:23→20:39)
[2020-01-13] MEDS: METOCLOPRAMIDE HCL 10 MG/10 ML UDC GT SCH ×3 (05:23→17:36)
[2020-01-13] MEDS: OMEPRAZOLE 20 MG CAPSULE.DR GT SCH (05:23)
[2020-01-13] MEDS: IV NS 0.9% 1,000 ML IV SCH (06:38)
[2020-01-13 07:26] VITALS: BP 105/72
[2020-01-13] MEDS: BLOOD SUGAR DIAGNOSTIC 1 EACH STRIP IN SCH ×2 (09:00→21:26)
[2020-01-13] MEDS: SIMETHICONE SUSP 40 MG/0.6 ML BOTTLE GT SCH ×2 (09:00→20:39)
[2020-01-13] MEDS: Z GUARD REMEDY 4 OZ OINT TP SCH ×2 (09:00→20:39)
[2020-01-13] MEDS: CLOTRIMAZOLE 1% CREAM 24 GM TUBE TP SCH ×2 (09:00→20:39)
[2020-01-13] MEDS: HYDROGEN PEROXIDE 480 ML BOTTLE TP SCH ×2 (09:54→21:50)
[2020-01-13] MEDS: ACIDOPHILUS/BULGARICUS 1 EACH TAB.CHEW GT SCH ×2 (09:59→17:37)
[2020-01-13] MEDS: DOCUSATE SODIUM LIQ 100 MG/10 ML UDC GT SCH (09:59)
[2020-01-13] MEDS: MULTIVIT W/MINERALS 1 TAB TABLET GT SCH (10:03)
[2020-01-13] MEDS: OXCARBAZEPINE 150 MG TABLET GT SCH ×2 (10:03→20:39)
[2020-01-13] MEDS: LEVETIRACETAM SOL (5 ML) 100 MG/ML UDC GT SCH ×2 (10:03→20:39)
[2020-01-13] MEDS: SENNOSIDES 8.6 MG TABLET GT SCH ×2 (10:03→20:39)
[2020-01-13] MEDS: NEPRO 1,000 ML BOTTLE NG PRN (14:56)
[2020-01-13 19:42] VITALS: BP 127/72
[2020-01-13] MEDS: ASCORBIC ACID 500 MG TABLET GT SCH (20:39)
[2020-01-13] MEDS: INSULIN GLARGINE, 100 UNIT/ML CARTRIDGE SQ SCH (21:27)
[2020-01-13] MEDS: INSULIN REGULAR, HUMAN 100 UNIT/ML 3 ML VIAL SQ PRN (21:27)
[2020-01-14] MEDS: METOCLOPRAMIDE HCL 10 MG/10 ML UDC GT SCH ×5 (00:22→23:59)
[2020-01-14] MEDS: OMEPRAZOLE 20 MG CAPSULE.DR GT SCH (05:32)
[2020-01-14] MEDS: GABAPENTIN 300 MG CAPSULE GT SCH ×3 (05:32→21:17)
[2020-01-14 08:00] VITALS: BP 155/72
[2020-01-14] MEDS: LEVETIRACETAM SOL (5 ML) 100 MG/ML UDC GT SCH ×2 (09:30→21:17)
[2020-01-14] MEDS: DOCUSATE SODIUM LIQ 100 MG/10 ML UDC GT SCH (09:30)
[2020-01-14] MEDS: ACIDOPHILUS/BULGARICUS 1 EACH TAB.CHEW GT SCH ×2 (09:30→16:28)
[2020-01-14] MEDS: MULTIVIT W/MINERALS 1 TAB TABLET GT SCH (09:30)
[2020-01-14] MEDS: OXCARBAZEPINE 150 MG TABLET GT SCH ×2 (09:30→21:18)
[2020-01-14] MEDS: SENNOSIDES 8.6 MG TABLET GT SCH ×2 (09:30→21:18)
[2020-01-14] MEDS: SIMETHICONE SUSP 40 MG/0.6 ML BOTTLE GT SCH ×2 (09:30→21:17)
[2020-01-14] MEDS: HYDROGEN PEROXIDE 480 ML BOTTLE TP SCH ×2 (09:30→20:39)
[2020-01-14 09:31] LABS: BASOPHILS % (AUTO) 0.4 % (0.0-2.0); EOSINOPHILS % (AUTO) 6.3 % (0.0-6.0); HEMATOCRIT 32 % (33-45); HEMOGLOBIN 10.5 g/dL (11.5-14.8); LYMPHOCYTES # (AUTO) 1.7 /CMM (0.8-4.8); LYMPHOCYTES % (AUTO) 15.6 % (20.0-44.0); MEAN CORPUSCULAR HGB CONC 33 g/dl (31.0-36.0); MEAN CORPUSCULAR VOLUME 100 fL (82-100); MONOCYTES # (AUTO) 0.7 /CMM (0.1-1.30); MONOCYTES % (AUTO) 6.4 % (2.0-12.0); NEUTROPHILS # (AUTO) 7.7 /CMM (1.8-8.9); NEUTROPHILS % (AUTO) 71.3 % (43.0-81.0); PLATELET COUNT (AUTO) 368 /CMM (150-450); RED BLOOD CELL COUNT(AUTO) 3.21 MIL/uL (4.0-5.2); WHITE BLOOD COUNT (AUTO) 10.8 K/uL (4.3-11.0)
[2020-01-14] MEDS: CLOTRIMAZOLE 1% CREAM 24 GM TUBE TP SCH ×2 (09:31→21:18)
[2020-01-14] MEDS: Z GUARD REMEDY 4 OZ OINT TP SCH ×2 (09:31→21:18)
[2020-01-14] MEDS: BLOOD SUGAR DIAGNOSTIC 1 EACH STRIP IN SCH ×2 (09:31→21:32)
[2020-01-14 09:48] LABS: BILIRUBIN,TOTAL 0.2 mg/dL (0.2-1.0); CALCIUM, SERUM 11.1 mg/dL (8.5-10.1); CREATININE 3.5 mg/dL (0.6-1.3); PHOSPHORUS 4.1 mg/dL (2.5-4.9); POTASSIUM 3.7 mmol/L (3.5-5.1); TOTAL PROTEIN, SERUM 9.3 g/dL (6.4-8.2)
[2020-01-14 09:59] LABS: ALBUMIN 2.5 g/dL (3.4-5.0)
[2020-01-14] MEDS: INSULIN REGULAR, HUMAN 100 UNIT/ML 3 ML VIAL SQ PRN ×2 (10:52→21:33)
--- NOTE | 2020-01-14 15:33 | NUR ---
Left a message to Dr. Kumar regarding CBC and CMP result, BUN 75 and Creat 3.5. Awaiting for any orders.
[2020-01-14 20:32] VITALS: BP 138/88
[2020-01-14] MEDS: ASCORBIC ACID 500 MG TABLET GT SCH (21:18)
[2020-01-14] MEDS: INSULIN GLARGINE, 100 UNIT/ML CARTRIDGE SQ SCH (21:33)
[2020-01-15] MEDS: OMEPRAZOLE 20 MG CAPSULE.DR GT SCH (05:12)
[2020-01-15] MEDS: METOCLOPRAMIDE HCL 10 MG/10 ML UDC GT SCH ×3 (05:12→17:17)
[2020-01-15] MEDS: GABAPENTIN 300 MG CAPSULE GT SCH ×3 (05:12→21:38)
[2020-01-15 07:34] VITALS: BP 140/72
[2020-01-15] MEDS: CLOTRIMAZOLE 1% CREAM 24 GM TUBE TP SCH ×2 (09:00→21:41)
[2020-01-15] MEDS: Z GUARD REMEDY 4 OZ OINT TP SCH ×2 (09:00→21:41)
[2020-01-15] MEDS: OXCARBAZEPINE 150 MG TABLET GT SCH ×2 (09:55→21:39)
[2020-01-15] MEDS: SIMETHICONE SUSP 40 MG/0.6 ML BOTTLE GT SCH ×2 (09:55→21:40)
[2020-01-15] MEDS: MULTIVIT W/MINERALS 1 TAB TABLET GT SCH (09:55)
[2020-01-15] MEDS: LEVETIRACETAM SOL (5 ML) 100 MG/ML UDC GT SCH ×2 (09:55→21:38)
[2020-01-15] MEDS: ACIDOPHILUS/BULGARICUS 1 EACH TAB.CHEW GT SCH ×2 (09:55→16:54)
[2020-01-15] MEDS: DOCUSATE SODIUM LIQ 100 MG/10 ML UDC GT SCH (09:55)
[2020-01-15] MEDS: BLOOD SUGAR DIAGNOSTIC 1 EACH STRIP IN SCH ×2 (09:55→21:41)
[2020-01-15] MEDS: SENNOSIDES 8.6 MG TABLET GT SCH ×2 (09:55→21:40)
[2020-01-15] MEDS: INSULIN REGULAR, HUMAN 100 UNIT/ML 3 ML VIAL SQ PRN ×2 (09:57→21:44)
[2020-01-15] MEDS: HYDROGEN PEROXIDE 480 ML BOTTLE TP SCH ×2 (10:31→21:00)
[2020-01-15 20:51] VITALS: BP 133/75
[2020-01-15] MEDS: ASCORBIC ACID 500 MG TABLET GT SCH (21:41)
[2020-01-15] MEDS: INSULIN GLARGINE, 100 UNIT/ML CARTRIDGE SQ SCH (21:42)
[2020-01-16] MEDS: METOCLOPRAMIDE HCL 10 MG/10 ML UDC GT SCH ×5 (00:38→23:59)
[2020-01-16] MEDS: GABAPENTIN 300 MG CAPSULE GT SCH ×3 (05:05→21:10)
[2020-01-16] MEDS: OMEPRAZOLE 20 MG CAPSULE.DR GT SCH (05:06)
[2020-01-16 06:59] LABS: HEMOGLOBIN 10.9 g/dL (11.5-14.8)
[2020-01-16 07:45] VITALS: BP 106/65
[2020-01-16] MEDS: BLOOD SUGAR DIAGNOSTIC 1 EACH STRIP IN SCH ×2 (09:00→21:11)
[2020-01-16] MEDS: LEVETIRACETAM SOL (5 ML) 100 MG/ML UDC GT SCH ×2 (09:00→21:08)
[2020-01-16] MEDS: Z GUARD REMEDY 4 OZ OINT TP SCH ×2 (09:00→21:11)
[2020-01-16] MEDS: DOCUSATE SODIUM LIQ 100 MG/10 ML UDC GT SCH (09:00)
[2020-01-16] MEDS: OXCARBAZEPINE 150 MG TABLET GT SCH ×2 (09:00→21:10)
[2020-01-16] MEDS: ACIDOPHILUS/BULGARICUS 1 EACH TAB.CHEW GT SCH ×2 (09:00→17:29)
[2020-01-16] MEDS: SENNOSIDES 8.6 MG TABLET GT SCH ×2 (09:00→21:10)
[2020-01-16] MEDS: SIMETHICONE SUSP 40 MG/0.6 ML BOTTLE GT SCH ×2 (09:00→21:09)
[2020-01-16] MEDS: CLOTRIMAZOLE 1% CREAM 24 GM TUBE TP SCH ×2 (09:00→21:11)
[2020-01-16] MEDS: MULTIVIT W/MINERALS 1 TAB TABLET GT SCH (09:00)
[2020-01-16] MEDS: INSULIN REGULAR, HUMAN 100 UNIT/ML 3 ML VIAL SQ PRN ×2 (10:21→21:13)
[2020-01-16] MEDS: HYDROGEN PEROXIDE 480 ML BOTTLE TP SCH ×2 (11:25→21:00)
[2020-01-16] MEDS ORDERED: EPOETIN ALFA (4000 UNIT) 4,000 UNIT/ML VIAL SQ SCH (18:03)
[2020-01-16] MEDS: EPOETIN ALFA (4000 UNIT) 4,000 UNIT/ML VIAL SQ SCH (18:41)
[2020-01-16 20:46] VITALS: BP 138/81
[2020-01-16] MEDS: ASCORBIC ACID 500 MG TABLET GT SCH (21:11)
[2020-01-16] MEDS: INSULIN GLARGINE, 100 UNIT/ML CARTRIDGE SQ SCH (21:13)
[2020-01-17] MEDS: GABAPENTIN 300 MG CAPSULE GT SCH ×3 (05:58→21:08)
[2020-01-17] MEDS: METOCLOPRAMIDE HCL 10 MG/10 ML UDC GT SCH ×3 (05:58→17:26)
[2020-01-17] MEDS: OMEPRAZOLE 20 MG CAPSULE.DR GT SCH (05:59)
[2020-01-17] MEDS: NEPRO 1,000 ML BOTTLE NG PRN (05:59)
[2020-01-17 07:36] VITALS: BP 118/62
[2020-01-17] MEDS: SIMETHICONE SUSP 40 MG/0.6 ML BOTTLE GT SCH ×2 (09:00→21:08)
[2020-01-17] MEDS: MULTIVIT W/MINERALS 1 TAB TABLET GT SCH (09:00)
[2020-01-17] MEDS: DOCUSATE SODIUM LIQ 100 MG/10 ML UDC GT SCH (09:00)
[2020-01-17] MEDS: LEVETIRACETAM SOL (5 ML) 100 MG/ML UDC GT SCH ×2 (09:00→21:07)
[2020-01-17] MEDS: ACIDOPHILUS/BULGARICUS 1 EACH TAB.CHEW GT SCH ×2 (09:00→17:26)
[2020-01-17] MEDS: CLOTRIMAZOLE 1% CREAM 24 GM TUBE TP SCH ×2 (09:00→21:19)
[2020-01-17] MEDS: OXCARBAZEPINE 150 MG TABLET GT SCH ×2 (09:00→21:09)
[2020-01-17] MEDS: Z GUARD REMEDY 4 OZ OINT TP SCH ×2 (09:00→21:19)
[2020-01-17] MEDS: BLOOD SUGAR DIAGNOSTIC 1 EACH STRIP IN SCH ×2 (09:00→21:10)
[2020-01-17] MEDS: SENNOSIDES 8.6 MG TABLET GT SCH ×2 (09:00→21:09)
[2020-01-17] MEDS: HYDROGEN PEROXIDE 480 ML BOTTLE TP SCH ×2 (09:49→21:00)
--- NOTE | 2020-01-17 10:04 | NUR ---
Seen and examined by Dr. Felix, no new order given.
[2020-01-17] MEDS: INSULIN REGULAR, HUMAN 100 UNIT/ML 3 ML VIAL SQ PRN (11:20)
[2020-01-17 20:07] VITALS: BP 158/86
[2020-01-17] MEDS: ASCORBIC ACID 500 MG TABLET GT SCH (21:10)
[2020-01-17] MEDS: INSULIN GLARGINE, 100 UNIT/ML CARTRIDGE SQ SCH (21:20)
[2020-01-18] MEDS: METOCLOPRAMIDE HCL 10 MG/10 ML UDC GT SCH ×5 (00:33→23:39)
[2020-01-18] MEDS: GABAPENTIN 300 MG CAPSULE GT SCH ×3 (05:16→20:55)
[2020-01-18] MEDS: OMEPRAZOLE 20 MG CAPSULE.DR GT SCH (05:16)
[2020-01-18 07:31] VITALS: BP 130/70
[2020-01-18] MEDS: HYDROGEN PEROXIDE 480 ML BOTTLE TP SCH ×2 (09:00→20:18)
[2020-01-18] MEDS: DOCUSATE SODIUM LIQ 100 MG/10 ML UDC GT SCH (09:55)
[2020-01-18] MEDS: MULTIVIT W/MINERALS 1 TAB TABLET GT SCH (09:55)
[2020-01-18] MEDS: SIMETHICONE SUSP 40 MG/0.6 ML BOTTLE GT SCH ×2 (09:55→20:55)
[2020-01-18] MEDS: SENNOSIDES 8.6 MG TABLET GT SCH ×2 (09:55→20:55)
[2020-01-18] MEDS: OXCARBAZEPINE 150 MG TABLET GT SCH ×2 (09:55→20:55)
[2020-01-18] MEDS: LEVETIRACETAM SOL (5 ML) 100 MG/ML UDC GT SCH ×2 (09:55→20:55)
[2020-01-18] MEDS: ACIDOPHILUS/BULGARICUS 1 EACH TAB.CHEW GT SCH ×2 (09:55→17:55)
[2020-01-18] MEDS: BLOOD SUGAR DIAGNOSTIC 1 EACH STRIP IN SCH ×2 (09:55→21:53)
[2020-01-18] MEDS: CLOTRIMAZOLE 1% CREAM 24 GM TUBE TP SCH ×2 (09:56→21:07)
[2020-01-18] MEDS: INSULIN REGULAR, HUMAN 100 UNIT/ML 3 ML VIAL SQ PRN ×2 (09:56→21:54)
[2020-01-18] MEDS: Z GUARD REMEDY 4 OZ OINT TP SCH ×2 (09:56→21:07)
[2020-01-18] MEDS: NEPRO 1,000 ML BOTTLE NG PRN (18:02)
[2020-01-18 20:09] VITALS: BP 124/73
[2020-01-18] MEDS: ASCORBIC ACID 500 MG TABLET GT SCH (20:55)
[2020-01-18] MEDS: INSULIN GLARGINE, 100 UNIT/ML CARTRIDGE SQ SCH (21:54)
[2020-01-19] MEDS: GABAPENTIN 300 MG CAPSULE GT SCH ×3 (05:36→21:02)
[2020-01-19] MEDS: METOCLOPRAMIDE HCL 10 MG/10 ML UDC GT SCH ×4 (05:36→23:32)
[2020-01-19] MEDS: OMEPRAZOLE 20 MG CAPSULE.DR GT SCH (05:36)
[2020-01-19 07:57] VITALS: BP 138/85
[2020-01-19] MEDS: HYDROGEN PEROXIDE 480 ML BOTTLE TP SCH ×2 (09:20→20:30)
[2020-01-19] MEDS: LEVETIRACETAM SOL (5 ML) 100 MG/ML UDC GT SCH ×2 (09:52→21:02)
[2020-01-19] MEDS: DOCUSATE SODIUM LIQ 100 MG/10 ML UDC GT SCH (09:52)
[2020-01-19] MEDS: SIMETHICONE SUSP 40 MG/0.6 ML BOTTLE GT SCH ×2 (09:52→21:02)
[2020-01-19] MEDS: ACIDOPHILUS/BULGARICUS 1 EACH TAB.CHEW GT SCH ×2 (09:52→16:43)
[2020-01-19] MEDS: SENNOSIDES 8.6 MG TABLET GT SCH ×2 (09:53→21:02)
[2020-01-19] MEDS: MULTIVIT W/MINERALS 1 TAB TABLET GT SCH (09:53)
[2020-01-19] MEDS: CLOTRIMAZOLE 1% CREAM 24 GM TUBE TP SCH ×2 (09:53→21:02)
[2020-01-19] MEDS: BLOOD SUGAR DIAGNOSTIC 1 EACH STRIP IN SCH ×2 (09:53→21:45)
[2020-01-19] MEDS: OXCARBAZEPINE 150 MG TABLET GT SCH ×2 (09:53→21:02)
[2020-01-19] MEDS: Z GUARD REMEDY 4 OZ OINT TP SCH ×2 (09:53→21:03)
[2020-01-19] MEDS: INSULIN REGULAR, HUMAN 100 UNIT/ML 3 ML VIAL SQ PRN (10:20)
[2020-01-19 12:08] LABS: BASOPHILS % (AUTO) 0.4 % (0.0-2.0); EOSINOPHILS % (AUTO) 5.2 % (0.0-6.0); HEMATOCRIT 31 % (33-45); HEMOGLOBIN 10.2 g/dL (11.5-14.8); LYMPHOCYTES # (AUTO) 1.5 /CMM (0.8-4.8); LYMPHOCYTES % (AUTO) 14.2 % (20.0-44.0); MEAN CORPUSCULAR HGB CONC 33 g/dl (31.0-36.0); MEAN CORPUSCULAR VOLUME 100 fL (82-100); MONOCYTES # (AUTO) 0.7 /CMM (0.1-1.30); NEUTROPHILS # (AUTO) 7.9 /CMM (1.8-8.9); NEUTROPHILS % (AUTO) 73.2 % (43.0-81.0); PLATELET COUNT (AUTO) 368 /CMM (150-450); RED BLOOD CELL COUNT(AUTO) 3.08 MIL/uL (4.0-5.2); WHITE BLOOD COUNT (AUTO) 10.7 K/uL (4.3-11.0)
[2020-01-19 12:29] LABS: ALBUMIN 2.5 g/dL (3.4-5.0); BILIRUBIN,TOTAL 0.2 mg/dL (0.2-1.0); CALCIUM, SERUM 12.3 mg/dL (8.5-10.1); MAGNESIUM 3.1 mg/dL (1.8-2.4); PHOSPHORUS 4.6 mg/dL (2.5-4.9); POTASSIUM 3.3 mmol/L (3.5-5.1)
--- NOTE | 2020-01-19 17:27 | NUR ---
Notified Dr Kumar of K 3.3. He ordered to give Potassium Chloride 20 mEq via GT x 1.
[2020-01-19] MEDS: NEPRO 1,000 ML BOTTLE NG PRN (17:53)
[2020-01-19] MEDS ORDERED: POTASSIUM CHLORIDE 20 MEQ POWDER PACKET GT ONE (18:30)
[2020-01-19] MEDS: ASCORBIC ACID 500 MG TABLET GT SCH (21:02)
[2020-01-19] MEDS: INSULIN GLARGINE, 100 UNIT/ML CARTRIDGE SQ SCH (21:45)
[2020-01-20] MEDS: GABAPENTIN 300 MG CAPSULE GT SCH ×3 (05:08→20:14)
[2020-01-20] MEDS: OMEPRAZOLE 20 MG CAPSULE.DR GT SCH (05:08)
[2020-01-20] MEDS: METOCLOPRAMIDE HCL 10 MG/10 ML UDC GT SCH ×3 (05:08→18:08)
[2020-01-20 07:49] VITALS: BP 143/76
[2020-01-20] MEDS ORDERED: CLOTRIMAZOLE 1% CREAM 24 GM TUBE TP PRN (08:00)
[2020-01-20] MEDS: Z GUARD REMEDY 4 OZ OINT TP SCH ×2 (09:00→20:14)
[2020-01-20] MEDS: BLOOD SUGAR DIAGNOSTIC 1 EACH STRIP IN SCH ×2 (09:00→21:41)
[2020-01-20] MEDS: MULTIVIT W/MINERALS 1 TAB TABLET GT SCH (09:00)
[2020-01-20] MEDS: OXCARBAZEPINE 150 MG TABLET GT SCH ×2 (09:00→20:14)
[2020-01-20] MEDS: SENNOSIDES 8.6 MG TABLET GT SCH ×2 (09:00→20:14)
[2020-01-20] MEDS: LEVETIRACETAM SOL (5 ML) 100 MG/ML UDC GT SCH ×2 (09:00→20:14)
[2020-01-20] MEDS: SIMETHICONE SUSP 40 MG/0.6 ML BOTTLE GT SCH ×2 (09:00→20:14)
[2020-01-20] MEDS: CLOTRIMAZOLE 1% CREAM 24 GM TUBE TP SCH ×2 (09:00→20:14)
[2020-01-20] MEDS: ACIDOPHILUS/BULGARICUS 1 EACH TAB.CHEW GT SCH ×2 (09:00→17:00)
[2020-01-20] MEDS: DOCUSATE SODIUM LIQ 100 MG/10 ML UDC GT SCH (09:00)
[2020-01-20] MEDS: HYDROGEN PEROXIDE 480 ML BOTTLE TP SCH ×2 (09:38→19:53)
[2020-01-20] MEDS: INSULIN REGULAR, HUMAN 100 UNIT/ML 3 ML VIAL SQ PRN ×2 (10:07→21:44)
--- NOTE | 2020-01-20 11:50 | NUR ---
Left a message to Dr. Luis that according to endorsement, [facility] will not send patient's medication Epogen if parameter is not less than 10. Current Epogen parameter is to hold if Hbg las than 11. MD also informed that Zofran is not covered but Compazine is. Awaiting for MD to call back.
--- NOTE | 2020-01-20 15:10 | NUR ---
Dr. Luis has not return the call, referred Compazine and Epogen question to Dr. Felix but said to refer to Dr. Kumar, animal husbandman. Left a message to Dr. Kumar regarding Compazine and Epogen question. Awaiting for call back.
[2020-01-20 20:06] VITALS: BP 137/84
[2020-01-20] MEDS: ASCORBIC ACID 500 MG TABLET GT SCH (20:14)
[2020-01-20] MEDS: INSULIN GLARGINE, 100 UNIT/ML CARTRIDGE SQ SCH (21:49)
[2020-01-21] MEDS: NEPRO 1,000 ML BOTTLE NG PRN (00:25)
[2020-01-21] MEDS: GABAPENTIN 300 MG CAPSULE GT SCH ×3 (05:18→21:23)
[2020-01-21] MEDS: METOCLOPRAMIDE HCL 10 MG/10 ML UDC GT SCH ×5 (05:18→23:40)
[2020-01-21] MEDS: OMEPRAZOLE 20 MG CAPSULE.DR GT SCH (05:18)
[2020-01-21 08:07] VITALS: BP 125/74
[2020-01-21] MEDS: HYDROGEN PEROXIDE 480 ML BOTTLE TP SCH ×2 (09:00→20:42)
[2020-01-21] MEDS: ACIDOPHILUS/BULGARICUS 1 EACH TAB.CHEW GT SCH ×2 (09:44→17:04)
[2020-01-21] MEDS: OXCARBAZEPINE 150 MG TABLET GT SCH ×2 (09:44→21:23)
[2020-01-21] MEDS: Z GUARD REMEDY 4 OZ OINT TP SCH ×2 (09:44→21:25)
[2020-01-21] MEDS: MULTIVIT W/MINERALS 1 TAB TABLET GT SCH (09:44)
[2020-01-21] MEDS: CLOTRIMAZOLE 1% CREAM 24 GM TUBE TP SCH ×2 (09:44→21:24)
[2020-01-21] MEDS: LEVETIRACETAM SOL (5 ML) 100 MG/ML UDC GT SCH ×2 (09:44→21:23)
[2020-01-21] MEDS: DOCUSATE SODIUM LIQ 100 MG/10 ML UDC GT SCH (09:44)
[2020-01-21] MEDS: SENNOSIDES 8.6 MG TABLET GT SCH ×2 (09:44→21:23)
[2020-01-21] MEDS: BLOOD SUGAR DIAGNOSTIC 1 EACH STRIP IN SCH ×2 (09:44→21:53)
[2020-01-21] MEDS: SIMETHICONE SUSP 40 MG/0.6 ML BOTTLE GT SCH ×2 (09:44→21:23)
[2020-01-21] MEDS: INSULIN REGULAR, HUMAN 100 UNIT/ML 3 ML VIAL SQ PRN ×2 (09:46→21:56)
[2020-01-21 19:52] VITALS: BP 138/79
[2020-01-21] MEDS: ASCORBIC ACID 500 MG TABLET GT SCH (21:23)
[2020-01-21] MEDS: INSULIN GLARGINE, 100 UNIT/ML CARTRIDGE SQ SCH (21:54)
[2020-01-22] MEDS: OMEPRAZOLE 20 MG CAPSULE.DR GT SCH (05:21)
[2020-01-22] MEDS: METOCLOPRAMIDE HCL 10 MG/10 ML UDC GT SCH ×3 (05:21→17:37)
[2020-01-22] MEDS: GABAPENTIN 300 MG CAPSULE GT SCH ×3 (05:21→21:19)
[2020-01-22] MEDS: NEPRO 1,000 ML BOTTLE NG PRN (05:25)
[2020-01-22 06:53] LABS: BASOPHILS # (AUTO) 0.1 /CMM (0.0-0.2); BASOPHILS % (AUTO) 0.6 % (0.0-2.0); EOSINOPHILS % (AUTO) 6.9 % (0.0-6.0); HEMATOCRIT 32 % (33-45); HEMOGLOBIN 10.8 g/dL (11.5-14.8); LYMPHOCYTES # (AUTO) 1.9 /CMM (0.8-4.8); LYMPHOCYTES % (AUTO) 19.2 % (20.0-44.0); MEAN CORPUSCULAR HGB CONC 34 g/dl (31.0-36.0); MEAN CORPUSCULAR VOLUME 99 fL (82-100); MONOCYTES # (AUTO) 0.9 /CMM (0.1-1.30); MONOCYTES % (AUTO) 9.2 % (2.0-12.0); NEUTROPHILS # (AUTO) 6.3 /CMM (1.8-8.9); NEUTROPHILS % (AUTO) 64.1 % (43.0-81.0); PLATELET COUNT (AUTO) 365 /CMM (150-450); RED BLOOD CELL COUNT(AUTO) 3.21 MIL/uL (4.0-5.2); WHITE BLOOD COUNT (AUTO) 9.8 K/uL (4.3-11.0)
[2020-01-22 07:19] LABS: ALBUMIN 2.6 g/dL (3.4-5.0); BILIRUBIN,TOTAL 0.2 mg/dL (0.2-1.0); CREATININE 4.5 mg/dL (0.6-1.3); MAGNESIUM 3.1 mg/dL (1.8-2.4); PHOSPHORUS 4.1 mg/dL (2.5-4.9); POTASSIUM 3.4 mmol/L (3.5-5.1); TOTAL PROTEIN, SERUM 12.2 g/dL (6.4-8.2)
[2020-01-22 08:10] VITALS: BP 131/69
--- NOTE | 2020-01-22 08:22 | NUR ---
Called answering service of Dr. Kumar regarding patients' critical lab result of her BUN - 94, left message to his answering service. Patients' latest v/s B/P 131/69, HR 70, RR 12, 02 sat 100%. Patient closely monitored.
[2020-01-22] MEDS: HYDROGEN PEROXIDE 480 ML BOTTLE TP SCH ×2 (08:41→21:00)
[2020-01-22] MEDS: BACI/NEOM/POLY B OINT PKT 1 UDPKT PACKET TP SCH ×2 (09:00→21:20)
[2020-01-22] MEDS: OXCARBAZEPINE 150 MG TABLET GT SCH ×2 (09:00→21:19)
[2020-01-22] MEDS: CLOTRIMAZOLE 1% CREAM 24 GM TUBE TP SCH ×2 (09:00→21:19)
[2020-01-22] MEDS: DOCUSATE SODIUM LIQ 100 MG/10 ML UDC GT SCH (09:00)
[2020-01-22] MEDS: SIMETHICONE SUSP 40 MG/0.6 ML BOTTLE GT SCH ×2 (09:00→21:19)
[2020-01-22] MEDS: BLOOD SUGAR DIAGNOSTIC 1 EACH STRIP IN SCH ×2 (09:00→21:19)
[2020-01-22] MEDS: MULTIVIT W/MINERALS 1 TAB TABLET GT SCH (09:00)
[2020-01-22] MEDS: LEVETIRACETAM SOL (5 ML) 100 MG/ML UDC GT SCH ×2 (09:00→21:19)
[2020-01-22] MEDS: ACIDOPHILUS/BULGARICUS 1 EACH TAB.CHEW GT SCH ×2 (09:00→17:37)
[2020-01-22] MEDS: SENNOSIDES 8.6 MG TABLET GT SCH ×2 (09:00→21:19)
[2020-01-22] MEDS: Z GUARD REMEDY 4 OZ OINT TP SCH ×4 (09:00→21:20)
--- NOTE | 2020-01-22 09:10 | NUR ---
Dr. Kumar called back, relayed critical lab result BUN - 94, other abnormal results, Ca - 12, Na - 131, K - 3.4. Dr. Kumar stated " I will take a look at it". No new orders at this time. Patient closely monitored.
[2020-01-22 09:42] LABS: EOSINOPHILS % (MANUAL) 5 % (0-4); LYMPHOCYTES % (MANUAL) 19 % (16-48); MONOCYTES % (MANUAL) 2 % (0-11.0); MYELOCYTES % 3 % (0-0); NEUTROPHILS % (MANUAL) 71 (42-76)
--- NOTE | 2020-01-22 10:00 | NUR ---
Dr. Kumar ordered to start IV fluid NS at 100 ml/hr (total volume - 4000 ml) for elevated BUN. Noted and carried out.
[2020-01-22] MEDS: INSULIN REGULAR, HUMAN 100 UNIT/ML 3 ML VIAL SQ PRN (10:05)
--- NOTE | 2020-01-22 10:50 | NUR ---
Patients' midline to left upper arm not working anymore, upon flushing leaking noted. Dr. Kumar made aware, has new order for midline insertion. Noted and carried out.
--- NOTE | 2020-01-22 11:00 | NUR ---
Midline to her left upper arm, noted leaking upon flushing,removed, tip of catheter intact.
--- NOTE | 2020-01-22 11:15 | NUR ---
Called and spoke to patients' sister Beckie and made her aware of patients' critical lab result, Dr. Kumar made aware and ordered to start IV fluid, midline insertion due to poor venous access. Beckie verbalized understanding and ok with her, all MDs' orders.
--- NOTE | 2020-01-22 14:00 | NUR ---
IV nurse inserted midline to right upper arm, IV midline patent and intact, started IV F NS 1 liter at 100 ml/hr , infusing well. Patient not in distress. Closely monitored.
[2020-01-22] MEDS: IV NS 0.9% 1,000 ML IV PRN (18:34)
[2020-01-22 20:05] VITALS: BP 136/70
[2020-01-22] MEDS: ASCORBIC ACID 500 MG TABLET GT SCH (21:19)
[2020-01-22] MEDS: INSULIN GLARGINE, 100 UNIT/ML CARTRIDGE SQ SCH (21:20)
[2020-01-23] MEDS: METOCLOPRAMIDE HCL 10 MG/10 ML UDC GT SCH ×5 (00:20→23:22)
[2020-01-23] MEDS: IV NS 0.9% 1,000 ML IV PRN ×2 (03:00→15:00)
[2020-01-23] MEDS: OMEPRAZOLE 20 MG CAPSULE.DR GT SCH (05:50)
[2020-01-23] MEDS: GABAPENTIN 300 MG CAPSULE GT SCH ×3 (05:50→21:46)
[2020-01-23 06:51] LABS: BASOPHILS # (AUTO) 0.1 /CMM (0.0-0.2); BASOPHILS % (AUTO) 0.5 % (0.0-2.0); EOSINOPHILS % (AUTO) 9.2 % (0.0-6.0); HEMATOCRIT 31 % (33-45); HEMOGLOBIN 10.4 g/dL (11.5-14.8); LYMPHOCYTES # (AUTO) 1.6 /CMM (0.8-4.8); LYMPHOCYTES % (AUTO) 15.4 % (20.0-44.0); MEAN CORPUSCULAR HGB CONC 34 g/dl (31.0-36.0); MEAN CORPUSCULAR VOLUME 100 fL (82-100); MONOCYTES % (AUTO) 9.3 % (2.0-12.0); NEUTROPHILS % (AUTO) 65.6 % (43.0-81.0); PLATELET COUNT (AUTO) 357 /CMM (150-450); RED BLOOD CELL COUNT(AUTO) 3.07 MIL/uL (4.0-5.2); WHITE BLOOD COUNT (AUTO) 10.6 K/uL (4.3-11.0)
[2020-01-23 07:55] LABS: ALBUMIN 2.5 g/dL (3.4-5.0); BILIRUBIN,TOTAL 0.2 mg/dL (0.2-1.0); CALCIUM, SERUM 12.2 mg/dL (8.5-10.1); CREATININE 4.3 mg/dL (0.6-1.3); MAGNESIUM 3.2 mg/dL (1.8-2.4); PHOSPHORUS 4.7 mg/dL (2.5-4.9); POTASSIUM 3.7 mmol/L (3.5-5.1); TOTAL PROTEIN, SERUM 9.8 g/dL (6.4-8.2)
[2020-01-23] MEDS: MULTIVIT W/MINERALS 1 TAB TABLET GT SCH (09:00)
[2020-01-23] MEDS: Z GUARD REMEDY 4 OZ OINT TP SCH ×4 (09:00→21:46)
[2020-01-23] MEDS: DOCUSATE SODIUM LIQ 100 MG/10 ML UDC GT SCH (09:00)
[2020-01-23] MEDS: BACI/NEOM/POLY B OINT PKT 1 UDPKT PACKET TP SCH ×2 (09:00→21:46)
[2020-01-23] MEDS: LEVETIRACETAM SOL (5 ML) 100 MG/ML UDC GT SCH ×2 (09:00→21:45)
[2020-01-23] MEDS: CLOTRIMAZOLE 1% CREAM 24 GM TUBE TP SCH ×2 (09:00→21:46)
[2020-01-23] MEDS: SENNOSIDES 8.6 MG TABLET GT SCH ×2 (09:00→21:46)
[2020-01-23] MEDS: SIMETHICONE SUSP 40 MG/0.6 ML BOTTLE GT SCH ×2 (09:00→21:46)
[2020-01-23] MEDS: OXCARBAZEPINE 150 MG TABLET GT SCH ×2 (09:00→21:46)
[2020-01-23] MEDS: BLOOD SUGAR DIAGNOSTIC 1 EACH STRIP IN SCH ×2 (09:00→21:46)
[2020-01-23] MEDS: ACIDOPHILUS/BULGARICUS 1 EACH TAB.CHEW GT SCH ×2 (09:00→17:13)
[2020-01-23] MEDS: HYDROGEN PEROXIDE 480 ML BOTTLE TP SCH ×2 (09:21→20:35)
[2020-01-23] MEDS: INSULIN REGULAR, HUMAN 100 UNIT/ML 3 ML VIAL SQ PRN (10:05)
--- NOTE | 2020-01-23 10:25 | NUR ---
Pt's right upper arm midline was found out. Slight bleeding was noted, but bleeding has already stopped. Catheter tip intact. Pt appears comfortable. Notified Dr Luis.
[2020-01-23 10:55] VITALS: BP 148/85
--- NOTE | 2020-01-23 11:20 | NUR ---
Notified Dr Luis that pt's Epogen is not covered if Hgb is above 10. Hgb 10.[address] Luis ordered to change parameter from 11 to 10. Addendum: 01/23/20 at 1122 by SARITA GOMEZ RN Hgb 10.4 today
--- NOTE | 2020-01-23 11:53 | NUR ---
STEPHEN notified the patients family of 01/27/2020 12:30 IDT meeting. the pt.'s sister, Beckie stated they are available to participate via phone conference. STEPHEN will follow up and call them for their participation in the IDT.
[2020-01-23] MEDS: NEPRO 1,000 ML BOTTLE NG PRN (15:24)
[2020-01-23] MEDS: EPOETIN ALFA (4000 UNIT) 4,000 UNIT/ML VIAL SQ SCH (18:01)
[2020-01-23 20:25] VITALS: BP 121/67
[2020-01-23] MEDS: ASCORBIC ACID 500 MG TABLET GT SCH (21:46)
[2020-01-23] MEDS: INSULIN GLARGINE, 100 UNIT/ML CARTRIDGE SQ SCH (21:47)
[2020-01-24] MEDS: OMEPRAZOLE 20 MG CAPSULE.DR GT SCH (05:57)
[2020-01-24] MEDS: METOCLOPRAMIDE HCL 10 MG/10 ML UDC GT SCH ×3 (05:57→17:32)
[2020-01-24] MEDS: GABAPENTIN 300 MG CAPSULE GT SCH (05:57)
[2020-01-24] MEDS: IV NS 0.9% 1,000 ML IV PRN (07:25)
[2020-01-24 07:49] VITALS: BP 134/60
[2020-01-24] MEDS: HYDROGEN PEROXIDE 480 ML BOTTLE TP SCH ×2 (08:53→21:00)
[2020-01-24] MEDS: BACI/NEOM/POLY B OINT PKT 1 UDPKT PACKET TP SCH ×2 (09:00→21:00)
[2020-01-24] MEDS: DOCUSATE SODIUM LIQ 100 MG/10 ML UDC GT SCH (09:00)
[2020-01-24] MEDS: SIMETHICONE SUSP 40 MG/0.6 ML BOTTLE GT SCH ×2 (09:00→21:59)
[2020-01-24] MEDS: CLOTRIMAZOLE 1% CREAM 24 GM TUBE TP SCH ×2 (09:00→22:13)
[2020-01-24] MEDS: BLOOD SUGAR DIAGNOSTIC 1 EACH STRIP IN SCH ×2 (09:00→22:19)
[2020-01-24] MEDS: Z GUARD REMEDY 4 OZ OINT TP SCH ×4 (09:00→21:00)
[2020-01-24] MEDS: ACIDOPHILUS/BULGARICUS 1 EACH TAB.CHEW GT SCH ×2 (09:00→16:18)
[2020-01-24] MEDS: LEVETIRACETAM SOL (5 ML) 100 MG/ML UDC GT SCH ×2 (09:00→21:00)
[2020-01-24] MEDS: SENNOSIDES 8.6 MG TABLET GT SCH ×2 (10:14→22:00)
[2020-01-24] MEDS: MULTIVIT W/MINERALS 1 TAB TABLET GT SCH (10:14)
[2020-01-24] MEDS: OXCARBAZEPINE 150 MG TABLET GT SCH ×2 (10:15→21:00)
[2020-01-24] MEDS: GABAPENTIN 250 MG/5 ML GT SCH ×2 (12:40→22:11)
[2020-01-24] MEDS: NEPRO 1,000 ML BOTTLE NG PRN (20:05)
[2020-01-24 20:44] VITALS: BP 125/66
[2020-01-24] MEDS: ASCORBIC ACID 500 MG TABLET GT SCH (21:00)
[2020-01-24] MEDS: INSULIN GLARGINE, 100 UNIT/ML CARTRIDGE SQ SCH (22:21)
[2020-01-24] MEDS: INSULIN REGULAR, HUMAN 100 UNIT/ML 3 ML VIAL SQ PRN (22:21)
[2020-01-25] MEDS: GABAPENTIN 250 MG/5 ML GT SCH ×3 (05:46→21:44)
[2020-01-25] MEDS: METOCLOPRAMIDE HCL 10 MG/10 ML UDC GT SCH ×4 (05:46→17:46)
[2020-01-25] MEDS: OMEPRAZOLE 20 MG CAPSULE.DR GT SCH (05:47)
[2020-01-25] MEDS: BLOOD SUGAR DIAGNOSTIC 1 EACH STRIP IN SCH ×2 (09:00→21:44)
[2020-01-25] MEDS: Z GUARD REMEDY 4 OZ OINT TP SCH ×4 (09:00→21:44)
[2020-01-25] MEDS: OXCARBAZEPINE 150 MG TABLET GT SCH ×2 (09:00→21:44)
[2020-01-25] MEDS: ACIDOPHILUS/BULGARICUS 1 EACH TAB.CHEW GT SCH ×2 (09:00→17:46)
[2020-01-25] MEDS: SENNOSIDES 8.6 MG TABLET GT SCH ×2 (09:00→21:44)
[2020-01-25] MEDS: LEVETIRACETAM SOL (5 ML) 100 MG/ML UDC GT SCH ×2 (09:00→21:44)
[2020-01-25] MEDS: BACI/NEOM/POLY B OINT PKT 1 UDPKT PACKET TP SCH ×2 (09:00→21:44)
[2020-01-25] MEDS: CLOTRIMAZOLE 1% CREAM 24 GM TUBE TP SCH ×2 (09:00→21:44)
[2020-01-25] MEDS: DOCUSATE SODIUM LIQ 100 MG/10 ML UDC GT SCH (09:00)
[2020-01-25] MEDS: SIMETHICONE SUSP 40 MG/0.6 ML BOTTLE GT SCH ×2 (09:00→21:44)
[2020-01-25] MEDS: MULTIVIT W/MINERALS 1 TAB TABLET GT SCH (09:00)
[2020-01-25] MEDS: HYDROGEN PEROXIDE 480 ML BOTTLE TP SCH ×2 (09:20→20:15)
--- NOTE | 2020-01-25 10:10 | NUR ---
STEPHEN received a call from the patient's sister, Beckie Chu [phone] requesting to video call their patient on 01/26/2020. STEPHEN informed Beckie that STEPHEN will facilitate video call via Zoom tomorrow. Beckie expressed appreciation.
[2020-01-25] MEDS: INSULIN REGULAR, HUMAN 100 UNIT/ML 3 ML VIAL SQ PRN ×2 (11:19→21:46)
[2020-01-25 11:37] VITALS: BP 146/80
[2020-01-25] MEDS: BISACODYL SUPP (10 MG) 10 MG/SUPP.RECT SUPP.RECT RC PRN (17:47)
--- NOTE | 2020-01-25 19:00 | NUR ---
Seen and examined by Dr. Luis, reviewed labs no new order given at this time.
[2020-01-25 20:06] VITALS: BP 136/73
[2020-01-25] MEDS ORDERED: PROCHLORPERAZINE MALEATE 10 MG TABLET PO PRN (20:30)
[2020-01-25] MEDS: ASCORBIC ACID 500 MG TABLET GT SCH (21:44)
[2020-01-25] MEDS: INSULIN GLARGINE, 100 UNIT/ML CARTRIDGE SQ SCH (21:45)
[2020-01-26] MEDS: METOCLOPRAMIDE HCL 10 MG/10 ML UDC GT SCH ×5 (00:06→23:58)
[2020-01-26] MEDS: NEPRO 1,000 ML BOTTLE NG PRN (00:06)
[2020-01-26] MEDS: GABAPENTIN 250 MG/5 ML GT SCH ×3 (05:23→21:40)
[2020-01-26] MEDS: OMEPRAZOLE 20 MG CAPSULE.DR GT SCH (05:23)
[2020-01-26 07:47] VITALS: BP 143/74
[2020-01-26] MEDS: HYDROGEN PEROXIDE 480 ML BOTTLE TP SCH ×2 (08:49→20:02)
[2020-01-26] MEDS: MULTIVIT W/MINERALS 1 TAB TABLET GT SCH (08:54)
[2020-01-26] MEDS: SENNOSIDES 8.6 MG TABLET GT SCH ×2 (08:54→21:40)
[2020-01-26] MEDS: SIMETHICONE SUSP 40 MG/0.6 ML BOTTLE GT SCH ×2 (08:54→21:40)
[2020-01-26] MEDS: ACIDOPHILUS/BULGARICUS 1 EACH TAB.CHEW GT SCH ×2 (08:54→17:30)
[2020-01-26] MEDS: LEVETIRACETAM SOL (5 ML) 100 MG/ML UDC GT SCH ×2 (08:54→21:40)
[2020-01-26] MEDS: DOCUSATE SODIUM LIQ 100 MG/10 ML UDC GT SCH (08:54)
[2020-01-26] MEDS: OXCARBAZEPINE 150 MG TABLET GT SCH ×2 (08:57→21:40)
[2020-01-26] MEDS: BLOOD SUGAR DIAGNOSTIC 1 EACH STRIP IN SCH ×2 (08:57→21:40)
[2020-01-26] MEDS: INSULIN REGULAR, HUMAN 100 UNIT/ML 3 ML VIAL SQ PRN ×2 (08:59→21:41)
[2020-01-26] MEDS: CLOTRIMAZOLE 1% CREAM 24 GM TUBE TP SCH ×2 (09:00→21:40)
[2020-01-26] MEDS: Z GUARD REMEDY 4 OZ OINT TP SCH ×4 (09:01→21:40)
[2020-01-26] MEDS: BACI/NEOM/POLY B OINT PKT 1 UDPKT PACKET TP SCH ×2 (09:01→21:40)
--- NOTE | 2020-01-26 11:15 | NUR ---
Dr Luis ordered to DC Compazine and give Zofran 4 mg via GT q 6 hours PRN for nausea or vomiting due to drug interaction with Reglan.
[2020-01-26] MEDS ORDERED: ONDANSETRON HCL 4 MG/5 ML SOLUTION GT PRN (12:00)
--- NOTE | 2020-01-26 16:39 | NUR ---
[facility] called and said Zofran is not covered by insurance, but they have already started to apply for prior authorization. Pt does not need Zofran at this time, will wait for approval from insurance.
[2020-01-26 20:41] VITALS: BP 125/65
[2020-01-26] MEDS: ASCORBIC ACID 500 MG TABLET GT SCH (21:40)
[2020-01-26] MEDS: INSULIN GLARGINE, 100 UNIT/ML CARTRIDGE SQ SCH (21:41)
[2020-01-27] MEDS: METOCLOPRAMIDE HCL 10 MG/10 ML UDC GT SCH ×3 (05:49→17:24)
[2020-01-27] MEDS: GABAPENTIN 250 MG/5 ML GT SCH ×3 (05:49→21:58)
[2020-01-27] MEDS: OMEPRAZOLE 20 MG CAPSULE.DR GT SCH (05:49)
[2020-01-27] MEDS: NEPRO 1,000 ML BOTTLE NG PRN (05:49)
[2020-01-27 06:45] LABS: BASOPHILS # (AUTO) 0.1 /CMM (0.0-0.2); BASOPHILS % (AUTO) 0.8 % (0.0-2.0); EOSINOPHILS % (AUTO) 10.8 % (0.0-6.0); HEMATOCRIT 32 % (33-45); HEMOGLOBIN 10.8 g/dL (11.5-14.8); LYMPHOCYTES % (AUTO) 22.9 % (20.0-44.0); MEAN CORPUSCULAR HGB CONC 34 g/dl (31.0-36.0); MEAN CORPUSCULAR VOLUME 100 fL (82-100); MONOCYTES # (AUTO) 0.9 /CMM (0.1-1.30); MONOCYTES % (AUTO) 9.7 % (2.0-12.0); NEUTROPHILS % (AUTO) 55.8 % (43.0-81.0); PLATELET COUNT (AUTO) 345 /CMM (150-450); RED BLOOD CELL COUNT(AUTO) 3.19 MIL/uL (4.0-5.2); WHITE BLOOD COUNT (AUTO) 8.9 K/uL (4.3-11.0)
[2020-01-27 07:17] LABS: ALBUMIN 2.7 g/dL (3.4-5.0); BILIRUBIN,TOTAL 0.2 mg/dL (0.2-1.0); CALCIUM, SERUM 12.5 mg/dL (8.5-10.1); CREATININE 3.9 mg/dL (0.6-1.3); MAGNESIUM 2.8 mg/dL (1.8-2.4); PHOSPHORUS 3.8 mg/dL (2.5-4.9); POTASSIUM 3.4 mmol/L (3.5-5.1); TOTAL PROTEIN, SERUM 10.3 g/dL (6.4-8.2)
[2020-01-27 07:46] VITALS: BP 128/68
[2020-01-27] MEDS: Z GUARD REMEDY 4 OZ OINT TP SCH ×4 (09:00→21:58)
[2020-01-27] MEDS: OXCARBAZEPINE 150 MG TABLET GT SCH ×2 (09:00→21:58)
[2020-01-27] MEDS: SENNOSIDES 8.6 MG TABLET GT SCH ×2 (09:00→21:58)
[2020-01-27] MEDS: SIMETHICONE SUSP 40 MG/0.6 ML BOTTLE GT SCH ×2 (09:00→21:58)
[2020-01-27] MEDS: BACI/NEOM/POLY B OINT PKT 1 UDPKT PACKET TP SCH ×2 (09:00→21:58)
[2020-01-27] MEDS: CLOTRIMAZOLE 1% CREAM 24 GM TUBE TP SCH ×2 (09:00→21:58)
[2020-01-27] MEDS: LEVETIRACETAM SOL (5 ML) 100 MG/ML UDC GT SCH ×2 (09:00→21:58)
[2020-01-27] MEDS: MULTIVIT W/MINERALS 1 TAB TABLET GT SCH (09:00)
[2020-01-27] MEDS: DOCUSATE SODIUM LIQ 100 MG/10 ML UDC GT SCH (09:00)
[2020-01-27] MEDS: ACIDOPHILUS/BULGARICUS 1 EACH TAB.CHEW GT SCH ×2 (09:00→17:24)
[2020-01-27] MEDS: BLOOD SUGAR DIAGNOSTIC 1 EACH STRIP IN SCH ×2 (09:00→21:58)
[2020-01-27] MEDS: HYDROGEN PEROXIDE 480 ML BOTTLE TP SCH ×2 (09:02→20:10)
[2020-01-27] MEDS ORDERED: POTASSIUM CHLORIDE 20 MEQ TAB.PRT.SR PO SCH (09:30)
--- NOTE | 2020-01-27 14:17 | NUR ---
During IDT, pharmacy recommended to check Trileptal level. Dr. Felix agreed to have it done on 10/30/19. Order carried out.
--- NOTE | 2020-01-27 14:54 | NUR ---
INTERDISCIPLINARY PLAN OF CARE CONFERENCE was held today. The patients conservator, Beckie Vlad [phone] was updated by charge nurse prior to start of IDT. Charge nurse discussed 01/15 COVID -19 test negative; 01/22 D/C midline. Dr. Felix and Interdisciplinary team discussed the plan of care in detail. Current orders as well as treatments and medications were reviewed. See other disciplines IDT notes for further details.
--- NOTE | 2020-01-27 15:24 | NUR ---
Facility Update: This SW called and updated the patient's sister, Beckie Chu [phone] regarding current condition in the facility. SW notified family that: all patients and staff have tested negative for COVID-19 [address] [facility] guidelines. As of 01/23/2020, [facility] have been testing 25 % of health care personnel on a weekly basis. All of the residents and staff continue to be screened for symptoms daily. [facility] will continue to keep family updated and that they may contact the facility for any further details or questions. SW will be available as needed to support patient and their families.
[2020-01-27 20:24] VITALS: BP 143/76
[2020-01-27] MEDS: ASCORBIC ACID 500 MG TABLET GT SCH (21:58)
[2020-01-27] MEDS: INSULIN REGULAR, HUMAN 100 UNIT/ML 3 ML VIAL SQ PRN (21:59)
[2020-01-27] MEDS: INSULIN GLARGINE, 100 UNIT/ML CARTRIDGE SQ SCH (22:08)
[2020-01-28] MEDS: METOCLOPRAMIDE HCL 10 MG/10 ML UDC GT SCH ×4 (00:41→17:02)
[2020-01-28] MEDS: GABAPENTIN 250 MG/5 ML GT SCH ×3 (05:59→21:07)
[2020-01-28] MEDS: OMEPRAZOLE 20 MG CAPSULE.DR GT SCH (05:59)
[2020-01-28 07:39] LABS: CALCIUM, SERUM 12.6 mg/dL (8.5-10.1); CREATININE 3.9 mg/dL (0.6-1.3)
[2020-01-28 07:54] VITALS: BP 140/75
[2020-01-28] MEDS: HYDROGEN PEROXIDE 480 ML BOTTLE TP SCH ×2 (08:44→20:35)
[2020-01-28] MEDS: DOCUSATE SODIUM LIQ 100 MG/10 ML UDC GT SCH (09:39)
[2020-01-28] MEDS: ACIDOPHILUS/BULGARICUS 1 EACH TAB.CHEW GT SCH ×2 (09:39→16:34)
[2020-01-28] MEDS: LEVETIRACETAM SOL (5 ML) 100 MG/ML UDC GT SCH ×2 (09:39→21:07)
[2020-01-28] MEDS: SIMETHICONE SUSP 40 MG/0.6 ML BOTTLE GT SCH ×2 (09:40→21:07)
[2020-01-28] MEDS: MULTIVIT W/MINERALS 1 TAB TABLET GT SCH (09:40)
[2020-01-28] MEDS: SENNOSIDES 8.6 MG TABLET GT SCH ×2 (09:40→21:07)
[2020-01-28] MEDS: OXCARBAZEPINE 150 MG TABLET GT SCH ×2 (09:42→21:07)
[2020-01-28] MEDS: BACI/NEOM/POLY B OINT PKT 1 UDPKT PACKET TP SCH ×2 (09:43→21:08)
[2020-01-28] MEDS: CLOTRIMAZOLE 1% CREAM 24 GM TUBE TP SCH ×2 (09:43→21:07)
[2020-01-28] MEDS: BLOOD SUGAR DIAGNOSTIC 1 EACH STRIP IN SCH ×2 (09:43→21:07)
[2020-01-28] MEDS: Z GUARD REMEDY 4 OZ OINT TP SCH ×4 (09:44→21:08)
[2020-01-28] MEDS: INSULIN REGULAR, HUMAN 100 UNIT/ML 3 ML VIAL SQ PRN ×2 (09:45→21:08)
--- NOTE | 2020-01-28 12:19 | NUR ---
Dr. Kumar reviewed BMP result with order to start patient with Calcitonin injection 200 units SQ Q 12 hours. Informed patient's sister Beckie of new order and lab result that led to ordering Calcitonin. She requested to speak with telecine operator for some clarity regarding patient's status and orders. Left a message to Dr. Kumar of family's request and contact information. Order carried out.
[2020-01-28] MEDS: NEPRO 1,000 ML BOTTLE NG PRN (13:43)
[2020-01-28 20:38] VITALS: BP 127/76
[2020-01-28] MEDS: ASCORBIC ACID 500 MG TABLET GT SCH (21:07)
[2020-01-28] MEDS: INSULIN GLARGINE, 100 UNIT/ML CARTRIDGE SQ SCH (21:09)
[2020-01-29] MEDS: METOCLOPRAMIDE HCL 10 MG/10 ML UDC GT SCH ×5 (00:13→23:40)
[2020-01-29] MEDS: OMEPRAZOLE 20 MG CAPSULE.DR GT SCH (05:39)
[2020-01-29] MEDS: GABAPENTIN 250 MG/5 ML GT SCH ×3 (05:39→20:35)
[2020-01-29 08:00] VITALS: BP 128/64
[2020-01-29] MEDS: HYDROGEN PEROXIDE 480 ML BOTTLE TP SCH ×2 (08:30→20:11)
[2020-01-29] MEDS: CALCITONIN,SALMON INJ 400 UNITS/2 ML VIAL SQ SCH ×2 (09:00→20:37)
[2020-01-29] MEDS: LEVETIRACETAM SOL (5 ML) 100 MG/ML UDC GT SCH ×2 (09:13→20:35)
[2020-01-29] MEDS: ACIDOPHILUS/BULGARICUS 1 EACH TAB.CHEW GT SCH ×2 (09:13→16:31)
[2020-01-29] MEDS: DOCUSATE SODIUM LIQ 100 MG/10 ML UDC GT SCH (09:13)
[2020-01-29] MEDS: OXCARBAZEPINE 150 MG TABLET GT SCH ×2 (09:16→20:36)
[2020-01-29] MEDS: SIMETHICONE SUSP 40 MG/0.6 ML BOTTLE GT SCH ×2 (09:16→20:36)
[2020-01-29] MEDS: MULTIVIT W/MINERALS 1 TAB TABLET GT SCH (09:16)
[2020-01-29] MEDS: BLOOD SUGAR DIAGNOSTIC 1 EACH STRIP IN SCH ×2 (09:16→21:23)
[2020-01-29] MEDS: SENNOSIDES 8.6 MG TABLET GT SCH ×2 (09:16→20:36)
[2020-01-29] MEDS: Z GUARD REMEDY 4 OZ OINT TP SCH ×4 (09:17→21:02)
[2020-01-29] MEDS: CLOTRIMAZOLE 1% CREAM 24 GM TUBE TP SCH ×2 (09:17→21:02)
[2020-01-29] MEDS: BACI/NEOM/POLY B OINT PKT 1 UDPKT PACKET TP SCH ×2 (09:17→21:02)
[2020-01-29] MEDS: INSULIN REGULAR, HUMAN 100 UNIT/ML 3 ML VIAL SQ PRN (09:18)
--- NOTE | 2020-01-29 10:00 | NUR ---
Calcitonin not administered drug not available. Spoke with Citlali from [facility] [employer] medicine will be delivered tonight.
[2020-01-29] MEDS: NEPRO 1,000 ML BOTTLE NG PRN (17:42)
[2020-01-29 20:17] VITALS: BP 132/77
[2020-01-29] MEDS: ASCORBIC ACID 500 MG TABLET GT SCH (20:36)
[2020-01-29] MEDS: INSULIN GLARGINE, 100 UNIT/ML CARTRIDGE SQ SCH (21:24)
--- NOTE | 2020-01-29 21:33 | NUR ---
RN NOTES DID NOT ADMINISTER MIACALCIN INJ, NOT PRESENT ON THE FLOOR. WILL BE DELIVERED FROM PHARMACY TOMORROW.
[2020-01-30] MEDS: OMEPRAZOLE 20 MG CAPSULE.DR GT SCH (05:04)
[2020-01-30] MEDS: METOCLOPRAMIDE HCL 10 MG/10 ML UDC GT SCH ×4 (05:04→23:49)
[2020-01-30] MEDS: GABAPENTIN 250 MG/5 ML GT SCH ×3 (05:04→21:15)
[2020-01-30 06:51] LABS: HEMOGLOBIN 9.4 g/dL (11.5-14.8)
[2020-01-30 08:00] VITALS: BP 109/50
[2020-01-30] MEDS: HYDROGEN PEROXIDE 480 ML BOTTLE TP SCH ×2 (08:34→21:00)
[2020-01-30] MEDS: SENNOSIDES 8.6 MG TABLET GT SCH ×2 (09:00→21:15)
[2020-01-30] MEDS: MULTIVIT W/MINERALS 1 TAB TABLET GT SCH (09:00)
[2020-01-30] MEDS: LEVETIRACETAM SOL (5 ML) 100 MG/ML UDC GT SCH ×2 (09:00→21:15)
[2020-01-30] MEDS: CALCITONIN,SALMON INJ 400 UNITS/2 ML VIAL SQ SCH ×2 (09:00→21:16)
[2020-01-30] MEDS: BLOOD SUGAR DIAGNOSTIC 1 EACH STRIP IN SCH ×2 (09:00→21:15)
[2020-01-30] MEDS: ACIDOPHILUS/BULGARICUS 1 EACH TAB.CHEW GT SCH ×2 (09:00→16:54)
[2020-01-30] MEDS: BACI/NEOM/POLY B OINT PKT 1 UDPKT PACKET TP SCH ×2 (09:00→21:16)
[2020-01-30] MEDS: SIMETHICONE SUSP 40 MG/0.6 ML BOTTLE GT SCH ×2 (09:00→21:15)
[2020-01-30] MEDS: DOCUSATE SODIUM LIQ 100 MG/10 ML UDC GT SCH (09:00)
[2020-01-30] MEDS: CLOTRIMAZOLE 1% CREAM 24 GM TUBE TP SCH ×2 (09:00→21:16)
[2020-01-30] MEDS: Z GUARD REMEDY 4 OZ OINT TP SCH ×4 (09:00→21:16)
[2020-01-30] MEDS: OXCARBAZEPINE 150 MG TABLET GT SCH ×2 (09:00→21:15)
[2020-01-30 13:22] LABS: ALBUMIN 2.7 g/dL (3.4-5.0); BILIRUBIN,TOTAL 0.3 mg/dL (0.2-1.0); CALCIUM, SERUM 12.2 mg/dL (8.5-10.1); CREATININE 3.6 mg/dL (0.6-1.3); POTASSIUM 2.9 mmol/L (3.5-5.1); TOTAL PROTEIN, SERUM 9.9 g/dL (6.4-8.2)
--- NOTE | 2020-01-30 16:00 | NUR ---
Relayed CMP result to Dr Kumar. Received order to give Potassium Chloride 60 mEq via GT x 1 for hypokalemia.
[2020-01-30] MEDS: NEPRO 1,000 ML BOTTLE NG PRN (16:54)
[2020-01-30] MEDS: EPOETIN ALFA (4000 UNIT) 4,000 UNIT/ML VIAL SQ SCH (17:02)
[2020-01-30] MEDS ORDERED: POTASSIUM CHLORIDE 20 MEQ POWDER PACKET GT ONE (17:30)
[2020-01-30 20:13] VITALS: BP 115/78
[2020-01-30] MEDS: ASCORBIC ACID 500 MG TABLET GT SCH (21:15)
[2020-01-30] MEDS: INSULIN GLARGINE, 100 UNIT/ML CARTRIDGE SQ SCH (21:17)
[2020-01-31] MEDS: METOCLOPRAMIDE HCL 10 MG/10 ML UDC GT SCH ×4 (05:41→23:47)
[2020-01-31] MEDS: OMEPRAZOLE 20 MG CAPSULE.DR GT SCH (05:41)
[2020-01-31] MEDS: GABAPENTIN 250 MG/5 ML GT SCH ×3 (05:41→21:43)
[2020-01-31 07:55] VITALS: BP 118/77
[2020-01-31] MEDS: HYDROGEN PEROXIDE 480 ML BOTTLE TP SCH ×2 (09:00→21:00)
[2020-01-31] MEDS: CALCITONIN,SALMON INJ 400 UNITS/2 ML VIAL SQ SCH ×2 (09:22→21:44)
[2020-01-31] MEDS: ACIDOPHILUS/BULGARICUS 1 EACH TAB.CHEW GT SCH ×2 (09:22→16:47)
[2020-01-31] MEDS: BLOOD SUGAR DIAGNOSTIC 1 EACH STRIP IN SCH ×2 (09:22→21:44)
[2020-01-31] MEDS: DOCUSATE SODIUM LIQ 100 MG/10 ML UDC GT SCH (09:22)
[2020-01-31] MEDS: CLOTRIMAZOLE 1% CREAM 24 GM TUBE TP SCH ×2 (09:22→21:44)
[2020-01-31] MEDS: SENNOSIDES 8.6 MG TABLET GT SCH ×2 (09:22→21:44)
[2020-01-31] MEDS: MULTIVIT W/MINERALS 1 TAB TABLET GT SCH (09:22)
[2020-01-31] MEDS: OXCARBAZEPINE 150 MG TABLET GT SCH ×2 (09:22→21:44)
[2020-01-31] MEDS: LEVETIRACETAM SOL (5 ML) 100 MG/ML UDC GT SCH ×2 (09:22→21:44)
[2020-01-31] MEDS: SIMETHICONE SUSP 40 MG/0.6 ML BOTTLE GT SCH ×2 (09:22→21:44)
[2020-01-31] MEDS: BACI/NEOM/POLY B OINT PKT 1 UDPKT PACKET TP SCH ×2 (09:23→21:44)
[2020-01-31] MEDS: Z GUARD REMEDY 4 OZ OINT TP SCH ×4 (09:23→21:44)
--- NOTE | 2020-01-31 15:50 | NUR ---
STEPHEN called the patient's conservator, Beckie Chu [phone] to update her regarding the current conditions in the facility. However, call went to voicemail and STEPHEN left call back number.
--- NOTE | 2020-01-31 17:07 | NUR ---
Pt noted with thickened dry crusty patches/rash on her bilateral thighs. Dr Luis ordered to apply Triamcinolone cream 0.1 % q shift for 14 days. Notified Beckie.
[2020-01-31 20:30] VITALS: BP 139/85
[2020-01-31] MEDS: TRIAMCINOLONE ACETONIDE 0.1% CR 15 GM TUBE TP SCH (21:44)
[2020-01-31] MEDS: ASCORBIC ACID 500 MG TABLET GT SCH (21:44)
[2020-01-31] MEDS: INSULIN GLARGINE, 100 UNIT/ML CARTRIDGE SQ SCH (21:45)
[2020-02-01] MEDS: GABAPENTIN 250 MG/5 ML GT SCH ×3 (05:00→21:27)
[2020-02-01] MEDS: METOCLOPRAMIDE HCL 10 MG/10 ML UDC GT SCH ×4 (06:04→23:47)
[2020-02-01] MEDS: OMEPRAZOLE 20 MG CAPSULE.DR GT SCH (06:04)
[2020-02-01 07:31] VITALS: BP 120/78
[2020-02-01] MEDS: LEVETIRACETAM SOL (5 ML) 100 MG/ML UDC GT SCH ×2 (08:45→21:27)
[2020-02-01] MEDS: DOCUSATE SODIUM LIQ 100 MG/10 ML UDC GT SCH (08:45)
[2020-02-01] MEDS: SIMETHICONE SUSP 40 MG/0.6 ML BOTTLE GT SCH ×2 (08:47→21:27)
[2020-02-01] MEDS: ACIDOPHILUS/BULGARICUS 1 EACH TAB.CHEW GT SCH ×2 (08:47→17:21)
[2020-02-01] MEDS: SENNOSIDES 8.6 MG TABLET GT SCH ×2 (08:48→21:28)
[2020-02-01] MEDS: OXCARBAZEPINE 150 MG TABLET GT SCH ×2 (08:48→21:28)
[2020-02-01] MEDS: MULTIVIT W/MINERALS 1 TAB TABLET GT SCH (08:48)
[2020-02-01] MEDS: BLOOD SUGAR DIAGNOSTIC 1 EACH STRIP IN SCH ×2 (08:48→21:30)
[2020-02-01] MEDS: CALCITONIN,SALMON INJ 400 UNITS/2 ML VIAL SQ SCH ×2 (08:50→21:30)
[2020-02-01] MEDS: INSULIN REGULAR, HUMAN 100 UNIT/ML 3 ML VIAL SQ PRN ×2 (08:53→21:34)
[2020-02-01] MEDS: Z GUARD REMEDY 4 OZ OINT TP SCH ×4 (09:00→21:32)
[2020-02-01] MEDS: CLOTRIMAZOLE 1% CREAM 24 GM TUBE TP SCH ×2 (09:00→21:31)
[2020-02-01] MEDS: HYDROGEN PEROXIDE 480 ML BOTTLE TP SCH ×2 (09:00→20:06)
[2020-02-01] MEDS: TRIAMCINOLONE ACETONIDE 0.1% CR 15 GM TUBE TP SCH ×2 (09:00→21:31)
[2020-02-01] MEDS: BACI/NEOM/POLY B OINT PKT 1 UDPKT PACKET TP SCH ×2 (13:49→21:32)
--- NOTE | 2020-02-01 14:30 | NUR ---
Seen and examined by NAN Vargas, no new order given.
[2020-02-01 20:34] VITALS: BP 115/65
[2020-02-01] MEDS: ASCORBIC ACID 500 MG TABLET GT SCH (21:30)
[2020-02-01] MEDS: INSULIN GLARGINE, 100 UNIT/ML CARTRIDGE SQ SCH (21:33)
[2020-02-01] MEDS: NEPRO 1,000 ML BOTTLE NG PRN (23:47)
[2020-02-02] MEDS: GABAPENTIN 250 MG/5 ML GT SCH ×3 (05:30→21:22)
[2020-02-02] MEDS: METOCLOPRAMIDE HCL 10 MG/10 ML UDC GT SCH ×4 (05:30→23:49)
[2020-02-02] MEDS: OMEPRAZOLE 20 MG CAPSULE.DR GT SCH (05:30)
[2020-02-02 07:17] VITALS: BP 137/72
[2020-02-02] MEDS: LEVETIRACETAM SOL (5 ML) 100 MG/ML UDC GT SCH ×2 (08:45→21:22)
[2020-02-02] MEDS: MULTIVIT W/MINERALS 1 TAB TABLET GT SCH (08:45)
[2020-02-02] MEDS: BLOOD SUGAR DIAGNOSTIC 1 EACH STRIP IN SCH ×2 (08:45→21:22)
[2020-02-02] MEDS: TRIAMCINOLONE ACETONIDE 0.1% CR 15 GM TUBE TP SCH ×2 (08:45→21:22)
[2020-02-02] MEDS: SIMETHICONE SUSP 40 MG/0.6 ML BOTTLE GT SCH ×2 (08:45→21:22)
[2020-02-02] MEDS: OXCARBAZEPINE 150 MG TABLET GT SCH ×2 (08:45→21:22)
[2020-02-02] MEDS: ACIDOPHILUS/BULGARICUS 1 EACH TAB.CHEW GT SCH ×2 (08:45→17:00)
[2020-02-02] MEDS: SENNOSIDES 8.6 MG TABLET GT SCH ×2 (08:45→21:22)
[2020-02-02] MEDS: CLOTRIMAZOLE 1% CREAM 24 GM TUBE TP SCH ×2 (08:45→21:22)
[2020-02-02] MEDS: DOCUSATE SODIUM LIQ 100 MG/10 ML UDC GT SCH (08:45)
[2020-02-02] MEDS: BACI/NEOM/POLY B OINT PKT 1 UDPKT PACKET TP SCH ×2 (08:46→21:22)
[2020-02-02] MEDS: Z GUARD REMEDY 4 OZ OINT TP SCH ×4 (08:46→21:22)
[2020-02-02] MEDS: INSULIN REGULAR, HUMAN 100 UNIT/ML 3 ML VIAL SQ PRN ×2 (09:00→21:23)
--- NOTE | 2020-02-02 09:45 | NUR ---
Notified Dr Kumar that Calcitonin is not covered by insurance and a quantity of 6 costs about $ 9,000. Asked him if there is an alternative that he wanted to order. Dr Kumar ordered to DC Calcitonin. Also spoke with Leopoldo of [facility] to ask if there is a covered alternative and she said there is none.
[2020-02-02] MEDS: HYDROGEN PEROXIDE 480 ML BOTTLE TP SCH ×2 (09:49→20:26)
[2020-02-02 20:22] VITALS: BP 122/67
[2020-02-02] MEDS: ASCORBIC ACID 500 MG TABLET GT SCH (21:22)
[2020-02-02] MEDS: INSULIN GLARGINE, 100 UNIT/ML CARTRIDGE SQ SCH (21:23)
[2020-02-03] MEDS: METOCLOPRAMIDE HCL 10 MG/10 ML UDC GT SCH ×4 (05:44→23:45)
[2020-02-03] MEDS: GABAPENTIN 250 MG/5 ML GT SCH ×3 (05:44→21:41)
[2020-02-03] MEDS: OMEPRAZOLE 20 MG CAPSULE.DR GT SCH (05:44)
[2020-02-03] MEDS: NEPRO 1,000 ML BOTTLE NG PRN (06:02)
[2020-02-03 07:16] VITALS: BP 111/76
[2020-02-03] MEDS: BACI/NEOM/POLY B OINT PKT 1 UDPKT PACKET TP SCH ×2 (09:00→21:42)
[2020-02-03] MEDS: TRIAMCINOLONE ACETONIDE 0.1% CR 15 GM TUBE TP SCH ×2 (09:00→21:41)
[2020-02-03] MEDS: HYDROGEN PEROXIDE 480 ML BOTTLE TP SCH ×2 (09:42→20:10)
[2020-02-03] MEDS: SENNOSIDES 8.6 MG TABLET GT SCH ×2 (09:45→21:41)
[2020-02-03] MEDS: MULTIVIT W/MINERALS 1 TAB TABLET GT SCH (09:45)
[2020-02-03] MEDS: DOCUSATE SODIUM LIQ 100 MG/10 ML UDC GT SCH (09:45)
[2020-02-03] MEDS: SIMETHICONE SUSP 40 MG/0.6 ML BOTTLE GT SCH ×2 (09:45→21:41)
[2020-02-03] MEDS: OXCARBAZEPINE 150 MG TABLET GT SCH ×2 (09:45→21:41)
[2020-02-03] MEDS: ACIDOPHILUS/BULGARICUS 1 EACH TAB.CHEW GT SCH ×2 (09:45→17:16)
[2020-02-03] MEDS: LEVETIRACETAM SOL (5 ML) 100 MG/ML UDC GT SCH ×2 (09:45→21:41)
[2020-02-03] MEDS: Z GUARD REMEDY 4 OZ OINT TP SCH ×4 (09:54→21:42)
[2020-02-03] MEDS: BLOOD SUGAR DIAGNOSTIC 1 EACH STRIP IN SCH ×2 (09:54→21:41)
[2020-02-03] MEDS: INSULIN REGULAR, HUMAN 100 UNIT/ML 3 ML VIAL SQ PRN ×2 (09:55→21:43)
[2020-02-03 20:22] VITALS: BP 131/71
[2020-02-03] MEDS: ASCORBIC ACID 500 MG TABLET GT SCH (21:41)
[2020-02-03] MEDS: INSULIN GLARGINE, 100 UNIT/ML CARTRIDGE SQ SCH (21:42)
[2020-02-04] MEDS: GABAPENTIN 250 MG/5 ML GT SCH ×3 (05:48→21:08)
[2020-02-04] MEDS: METOCLOPRAMIDE HCL 10 MG/10 ML UDC GT SCH ×3 (05:49→17:22)
[2020-02-04] MEDS: OMEPRAZOLE 20 MG CAPSULE.DR GT SCH (05:49)
[2020-02-04 07:31] VITALS: BP 138/83
[2020-02-04] MEDS: Z GUARD REMEDY 4 OZ OINT TP SCH ×4 (09:00→21:10)
[2020-02-04] MEDS: BACI/NEOM/POLY B OINT PKT 1 UDPKT PACKET TP SCH ×2 (09:00→21:09)
[2020-02-04] MEDS: TRIAMCINOLONE ACETONIDE 0.1% CR 15 GM TUBE TP SCH ×2 (09:00→21:09)
[2020-02-04] MEDS: ACIDOPHILUS/BULGARICUS 1 EACH TAB.CHEW GT SCH ×2 (09:17→17:22)
[2020-02-04] MEDS: SIMETHICONE SUSP 40 MG/0.6 ML BOTTLE GT SCH ×2 (09:17→21:08)
[2020-02-04] MEDS: BLOOD SUGAR DIAGNOSTIC 1 EACH STRIP IN SCH ×2 (09:17→21:09)
[2020-02-04] MEDS: MULTIVIT W/MINERALS 1 TAB TABLET GT SCH (09:17)
[2020-02-04] MEDS: DOCUSATE SODIUM LIQ 100 MG/10 ML UDC GT SCH (09:17)
[2020-02-04] MEDS: SENNOSIDES 8.6 MG TABLET GT SCH ×2 (09:17→21:08)
[2020-02-04] MEDS: LEVETIRACETAM SOL (5 ML) 100 MG/ML UDC GT SCH ×2 (09:17→21:08)
[2020-02-04] MEDS: OXCARBAZEPINE 150 MG TABLET GT SCH ×2 (09:17→21:08)
[2020-02-04] MEDS: INSULIN REGULAR, HUMAN 100 UNIT/ML 3 ML VIAL SQ PRN (09:19)
[2020-02-04] MEDS: HYDROGEN PEROXIDE 480 ML BOTTLE TP SCH ×2 (09:23→21:00)
[2020-02-04] MEDS: NEPRO 1,000 ML BOTTLE NG PRN (11:53)
[2020-02-04] MEDS: ASCORBIC ACID 500 MG TABLET GT SCH (21:08)
[2020-02-04] MEDS: INSULIN GLARGINE, 100 UNIT/ML CARTRIDGE SQ SCH (22:05)
[2020-02-05] MEDS: METOCLOPRAMIDE HCL 10 MG/10 ML UDC GT SCH ×5 (00:08→23:22)
[2020-02-05] MEDS: GABAPENTIN 250 MG/5 ML GT SCH ×3 (05:14→21:26)
[2020-02-05] MEDS: OMEPRAZOLE 20 MG CAPSULE.DR GT SCH (05:14)
[2020-02-05 07:27] VITALS: BP 134/83
[2020-02-05] MEDS: HYDROGEN PEROXIDE 480 ML BOTTLE TP SCH ×2 (09:00→20:23)
[2020-02-05] MEDS: Z GUARD REMEDY 4 OZ OINT TP SCH ×2 (09:01→21:27)
[2020-02-05] MEDS: SENNOSIDES 8.6 MG TABLET GT SCH ×2 (09:01→21:26)
[2020-02-05] MEDS: SIMETHICONE SUSP 40 MG/0.6 ML BOTTLE GT SCH ×2 (09:01→21:26)
[2020-02-05] MEDS: LEVETIRACETAM SOL (5 ML) 100 MG/ML UDC GT SCH ×2 (09:01→21:26)
[2020-02-05] MEDS: MULTIVIT W/MINERALS 1 TAB TABLET GT SCH (09:01)
[2020-02-05] MEDS: ACIDOPHILUS/BULGARICUS 1 EACH TAB.CHEW GT SCH ×2 (09:01→17:06)
[2020-02-05] MEDS: BLOOD SUGAR DIAGNOSTIC 1 EACH STRIP IN SCH ×2 (09:01→21:27)
[2020-02-05] MEDS: TRIAMCINOLONE ACETONIDE 0.1% CR 15 GM TUBE TP SCH ×2 (09:01→21:27)
[2020-02-05] MEDS: DOCUSATE SODIUM LIQ 100 MG/10 ML UDC GT SCH (09:01)
[2020-02-05] MEDS: OXCARBAZEPINE 150 MG TABLET GT SCH ×2 (09:01→21:27)
[2020-02-05] MEDS: INSULIN REGULAR, HUMAN 100 UNIT/ML 3 ML VIAL SQ PRN (09:04)
[2020-02-05] MEDS: NEPRO 1,000 ML BOTTLE NG PRN (17:06)
[2020-02-05 19:50] VITALS: BP 140/77
[2020-02-05] MEDS: INSULIN GLARGINE, 100 UNIT/ML CARTRIDGE SQ SCH (21:27)
[2020-02-05] MEDS: ASCORBIC ACID 500 MG TABLET GT SCH (21:27)
[2020-02-06] MEDS: METOCLOPRAMIDE HCL 10 MG/10 ML UDC GT SCH ×4 (05:26→23:14)
[2020-02-06] MEDS: GABAPENTIN 250 MG/5 ML GT SCH ×3 (05:26→21:38)
[2020-02-06] MEDS: OMEPRAZOLE 20 MG CAPSULE.DR GT SCH (05:26)
[2020-02-06 06:28] LABS: HEMOGLOBIN 9.7 g/dL (11.5-14.8)
[2020-02-06 07:42] VITALS: BP 143/85
[2020-02-06] MEDS: HYDROGEN PEROXIDE 480 ML BOTTLE TP SCH ×2 (09:00→21:53)
[2020-02-06] MEDS: LEVETIRACETAM SOL (5 ML) 100 MG/ML UDC GT SCH ×2 (09:57→21:38)
[2020-02-06] MEDS: SIMETHICONE SUSP 40 MG/0.6 ML BOTTLE GT SCH ×2 (09:57→21:38)
[2020-02-06] MEDS: ACIDOPHILUS/BULGARICUS 1 EACH TAB.CHEW GT SCH ×2 (09:57→17:05)
[2020-02-06] MEDS: SENNOSIDES 8.6 MG TABLET GT SCH ×2 (09:57→21:38)
[2020-02-06] MEDS: DOCUSATE SODIUM LIQ 100 MG/10 ML UDC GT SCH (09:57)
[2020-02-06] MEDS: TRIAMCINOLONE ACETONIDE 0.1% CR 15 GM TUBE TP SCH ×2 (09:58→21:38)
[2020-02-06] MEDS: BLOOD SUGAR DIAGNOSTIC 1 EACH STRIP IN SCH ×2 (09:58→21:38)
[2020-02-06] MEDS: MULTIVIT W/MINERALS 1 TAB TABLET GT SCH (09:58)
[2020-02-06] MEDS: Z GUARD REMEDY 4 OZ OINT TP SCH ×2 (09:58→21:38)
[2020-02-06] MEDS: OXCARBAZEPINE 150 MG TABLET GT SCH ×2 (09:58→21:38)
[2020-02-06] MEDS: NEPRO 1,000 ML BOTTLE NG PRN (17:10)
[2020-02-06] MEDS: EPOETIN ALFA (4000 UNIT) 4,000 UNIT/ML VIAL SQ SCH (18:28)
--- NOTE | 2020-02-06 19:35 | NUR ---
Pt's nurse notified charge nurse that she gave Kayexalate 30 gm via GT to pt. Pt's roommate was supposed to get the Kayexalate. Notified DIALYSIS REGISTERED NURSE Anna Vargas as she was the one that gave the order. Asked her if there is anything that needs to be done for the pt. She ordered to check potassium in AM. Notified Beckie about the incident. Educated her on the action and side effects of Kayexalate. Beckie expressed appreciation for informing her about the incident.
[2020-02-06 19:49] VITALS: BP 137/80
[2020-02-06] MEDS: ASCORBIC ACID 500 MG TABLET GT SCH (21:38)
[2020-02-06] MEDS: INSULIN GLARGINE, 100 UNIT/ML CARTRIDGE SQ SCH (21:39)
[2020-02-06] MEDS: INSULIN REGULAR, HUMAN 100 UNIT/ML 3 ML VIAL SQ PRN (21:41)
--- NOTE | 2020-02-06 23:50 | NUR ---
RN NOTES Collected specimen for Covid testing. Pt tolerated well. Specimen sent to lab.
--- NOTE | 2020-02-06 23:58 | NUR ---
Vital signs, T-98.0, R-18, BP- 146/80, P- 91, O2- 99%.
[2020-02-07 00:04] VITALS: BP 146/80
[2020-02-07 04:05] VITALS: BP 135/84
[2020-02-07] MEDS: OMEPRAZOLE 20 MG CAPSULE.DR GT SCH (05:44)
[2020-02-07] MEDS: METOCLOPRAMIDE HCL 10 MG/10 ML UDC GT SCH ×4 (05:44→23:55)
[2020-02-07] MEDS: GABAPENTIN 250 MG/5 ML GT SCH ×3 (05:44→21:48)
[2020-02-07 07:19] VITALS: BP 141/77
[2020-02-07] MEDS: HYDROGEN PEROXIDE 480 ML BOTTLE TP SCH ×2 (08:56→21:00)
[2020-02-07] MEDS: INSULIN REGULAR, HUMAN 100 UNIT/ML 3 ML VIAL SQ PRN (09:09)
[2020-02-07] MEDS: LEVETIRACETAM SOL (5 ML) 100 MG/ML UDC GT SCH ×2 (09:10→21:48)
[2020-02-07] MEDS: BLOOD SUGAR DIAGNOSTIC 1 EACH STRIP IN SCH ×2 (09:10→21:48)
[2020-02-07] MEDS: SIMETHICONE SUSP 40 MG/0.6 ML BOTTLE GT SCH ×2 (09:10→21:48)
[2020-02-07] MEDS: ACIDOPHILUS/BULGARICUS 1 EACH TAB.CHEW GT SCH ×2 (09:10→17:02)
[2020-02-07] MEDS: Z GUARD REMEDY 4 OZ OINT TP SCH ×2 (09:10→21:49)
[2020-02-07] MEDS: DOCUSATE SODIUM LIQ 100 MG/10 ML UDC GT SCH (09:10)
[2020-02-07] MEDS: OXCARBAZEPINE 150 MG TABLET GT SCH ×2 (09:10→21:48)
[2020-02-07] MEDS: MULTIVIT W/MINERALS 1 TAB TABLET GT SCH (09:10)
[2020-02-07] MEDS: TRIAMCINOLONE ACETONIDE 0.1% CR 15 GM TUBE TP SCH ×2 (09:10→21:49)
[2020-02-07] MEDS: SENNOSIDES 8.6 MG TABLET GT SCH ×2 (09:10→21:48)
--- NOTE | 2020-02-07 09:15 | NUR ---
Seen by Dr Felix. Notified him that pt was given Kayexalate 30 gm last night. Kayexalate was ordered for pt's roommate. Pt's K 3.[address] Felix ordered to give Potassium Chloride 20 mEq via GT x 1 for hyponatremia. Addendum: 02/07/20 at 1643 by SARITA GOMEZ RN Jasmeet Butts.
[2020-02-07 09:59] LABS: ALBUMIN 2.5 g/dL (3.4-5.0); BILIRUBIN,TOTAL 0.1 mg/dL (0.2-1.0); CALCIUM, SERUM 11.7 mg/dL (8.5-10.1); CREATININE 3.6 mg/dL (0.6-1.3); POTASSIUM 3.3 mmol/L (3.5-5.1); TOTAL PROTEIN, SERUM 9.4 g/dL (6.4-8.2)
--- NOTE | 2020-02-07 11:00 | NUR ---
Pt was seen by Dr Luis. Informed him that pt was given Kayexalate 30 gm via GT last night which should have been for pt's roommate. Also informed him that K 3.[address] Felix ordered to give KCl 20 mEq via GT x 1. No new order. Pt awake and responsive to verbal and tactile stimuli. BP this morning 141/77 HR 84.
[2020-02-07 12:00] VITALS: BP 95/64
[2020-02-07] MEDS ORDERED: POTASSIUM CHLORIDE 10 MEQ TABLET.SA GT ONE (12:00)
--- NOTE | 2020-02-07 16:42 | NUR ---
Pt asleep but easily awoken when touched or spoken to. BP 136/72 HR 83.
[2020-02-07 18:00] VITALS: BP 136/72
[2020-02-07 19:50] VITALS: BP 126/75
[2020-02-07] MEDS: ASCORBIC ACID 500 MG TABLET GT SCH (21:48)
[2020-02-07] MEDS: INSULIN GLARGINE, 100 UNIT/ML CARTRIDGE SQ SCH (21:49)
[2020-02-07] MEDS: NEPRO 1,000 ML BOTTLE NG PRN (22:19)
[2020-02-08] MEDS: GABAPENTIN 250 MG/5 ML GT SCH ×3 (05:41→21:26)
[2020-02-08] MEDS: METOCLOPRAMIDE HCL 10 MG/10 ML UDC GT SCH ×4 (05:50→23:50)
[2020-02-08] MEDS: OMEPRAZOLE 20 MG CAPSULE.DR GT SCH (05:50)
[2020-02-08 07:28] VITALS: BP 125/76
[2020-02-08] MEDS: HYDROGEN PEROXIDE 480 ML BOTTLE TP SCH ×2 (08:36→20:09)
[2020-02-08] MEDS: SENNOSIDES 8.6 MG TABLET GT SCH ×2 (09:56→21:26)
[2020-02-08] MEDS: DOCUSATE SODIUM LIQ 100 MG/10 ML UDC GT SCH (09:56)
[2020-02-08] MEDS: MULTIVIT W/MINERALS 1 TAB TABLET GT SCH (09:56)
[2020-02-08] MEDS: LEVETIRACETAM SOL (5 ML) 100 MG/ML UDC GT SCH ×2 (09:56→21:26)
[2020-02-08] MEDS: SIMETHICONE SUSP 40 MG/0.6 ML BOTTLE GT SCH ×2 (09:56→21:26)
[2020-02-08] MEDS: ACIDOPHILUS/BULGARICUS 1 EACH TAB.CHEW GT SCH ×2 (09:56→17:49)
[2020-02-08] MEDS: BLOOD SUGAR DIAGNOSTIC 1 EACH STRIP IN SCH ×2 (09:58→21:26)
[2020-02-08] MEDS: OXCARBAZEPINE 150 MG TABLET GT SCH ×2 (09:58→21:26)
[2020-02-08] MEDS: TRIAMCINOLONE ACETONIDE 0.1% CR 15 GM TUBE TP SCH ×2 (09:58→21:26)
[2020-02-08] MEDS: Z GUARD REMEDY 4 OZ OINT TP SCH ×2 (09:59→21:26)
[2020-02-08] MEDS: INSULIN REGULAR, HUMAN 100 UNIT/ML 3 ML VIAL SQ PRN ×2 (10:37→21:29)
--- NOTE | 2020-02-08 12:20 | NUR ---
Left a message to Dr. Luis that patient's GT stoma is noted to have small amount of fresh blood clots coming out of the stoma. Resident is not on any anticoagulant medication. F/C and nephrostomy tube no bleeding noted. Kept stoma clean and frequent GT dressing change done. Asked if he would like to refer to GI, awaiting for orders.
--- NOTE | 2020-02-08 18:30 | NUR ---
Left a message to Dr. Kumar to review BMP result with BUN 99, K+ 3.3, Na 131. Endorsed to incoming shift.
[2020-02-08 19:56] VITALS: BP 139/82
[2020-02-08] MEDS: ASCORBIC ACID 500 MG TABLET GT SCH (21:26)
[2020-02-08] MEDS: INSULIN GLARGINE, 100 UNIT/ML CARTRIDGE SQ SCH (21:27)
[2020-02-09] MEDS: NEPRO 1,000 ML BOTTLE NG PRN (01:45)
[2020-02-09] MEDS: OMEPRAZOLE 20 MG CAPSULE.DR GT SCH (05:36)
[2020-02-09] MEDS: METOCLOPRAMIDE HCL 10 MG/10 ML UDC GT SCH ×3 (05:36→17:30)
[2020-02-09] MEDS: GABAPENTIN 250 MG/5 ML GT SCH ×3 (05:36→21:08)
[2020-02-09 07:36] VITALS: BP 141/73
[2020-02-09] MEDS: MULTIVIT W/MINERALS 1 TAB TABLET GT SCH (09:22)
[2020-02-09] MEDS: LEVETIRACETAM SOL (5 ML) 100 MG/ML UDC GT SCH ×2 (09:22→21:08)
[2020-02-09] MEDS: DOCUSATE SODIUM LIQ 100 MG/10 ML UDC GT SCH (09:22)
[2020-02-09] MEDS: ACIDOPHILUS/BULGARICUS 1 EACH TAB.CHEW GT SCH ×2 (09:22→17:30)
[2020-02-09] MEDS: SENNOSIDES 8.6 MG TABLET GT SCH ×2 (09:22→21:08)
[2020-02-09] MEDS: SIMETHICONE SUSP 40 MG/0.6 ML BOTTLE GT SCH ×2 (09:22→21:08)
[2020-02-09] MEDS: OXCARBAZEPINE 150 MG TABLET GT SCH ×2 (09:22→21:08)
[2020-02-09] MEDS: TRIAMCINOLONE ACETONIDE 0.1% CR 15 GM TUBE TP SCH ×2 (09:27→21:09)
[2020-02-09] MEDS: Z GUARD REMEDY 4 OZ OINT TP SCH ×2 (09:27→21:09)
[2020-02-09] MEDS: BLOOD SUGAR DIAGNOSTIC 1 EACH STRIP IN SCH ×2 (09:27→21:08)
[2020-02-09] MEDS: INSULIN REGULAR, HUMAN 100 UNIT/ML 3 ML VIAL SQ PRN ×2 (09:28→21:11)
[2020-02-09] MEDS: HYDROGEN PEROXIDE 480 ML BOTTLE TP SCH ×2 (09:36→20:24)
[2020-02-09 20:05] VITALS: BP 113/65
[2020-02-09] MEDS: ASCORBIC ACID 500 MG TABLET GT SCH (21:08)
[2020-02-09] MEDS: INSULIN GLARGINE, 100 UNIT/ML CARTRIDGE SQ SCH (21:10)
[2020-02-10] MEDS: METOCLOPRAMIDE HCL 10 MG/10 ML UDC GT SCH ×4 (00:46→17:16)
[2020-02-10] MEDS: OMEPRAZOLE 20 MG CAPSULE.DR GT SCH (05:44)
[2020-02-10] MEDS: GABAPENTIN 250 MG/5 ML GT SCH ×3 (05:44→21:40)
[2020-02-10] MEDS: NEPRO 1,000 ML BOTTLE NG PRN (06:02)
[2020-02-10 07:39] VITALS: BP 142/69
[2020-02-10] MEDS: Z GUARD REMEDY 4 OZ OINT TP SCH ×3 (09:00→21:40)
[2020-02-10] MEDS: LEVETIRACETAM SOL (5 ML) 100 MG/ML UDC GT SCH ×2 (09:55→21:40)
[2020-02-10] MEDS: DOCUSATE SODIUM LIQ 100 MG/10 ML UDC GT SCH (09:55)
[2020-02-10] MEDS: BLOOD SUGAR DIAGNOSTIC 1 EACH STRIP IN SCH ×2 (09:56→21:40)
[2020-02-10] MEDS: ACIDOPHILUS/BULGARICUS 1 EACH TAB.CHEW GT SCH ×2 (09:56→17:16)
[2020-02-10] MEDS: OXCARBAZEPINE 150 MG TABLET GT SCH ×2 (09:56→21:40)
[2020-02-10] MEDS: SENNOSIDES 8.6 MG TABLET GT SCH ×2 (09:56→21:40)
[2020-02-10] MEDS: TRIAMCINOLONE ACETONIDE 0.1% CR 15 GM TUBE TP SCH ×2 (09:56→21:40)
[2020-02-10] MEDS: MULTIVIT W/MINERALS 1 TAB TABLET GT SCH (09:56)
[2020-02-10] MEDS: SIMETHICONE SUSP 40 MG/0.6 ML BOTTLE GT SCH ×2 (09:56→21:40)
[2020-02-10] MEDS: HYDROGEN PEROXIDE 480 ML BOTTLE TP SCH ×2 (10:00→21:55)
[2020-02-10] MEDS: INSULIN REGULAR, HUMAN 100 UNIT/ML 3 ML VIAL SQ PRN ×2 (10:45→21:44)
--- NOTE | 2020-02-10 14:00 | NUR ---
Referred patient's leaking GT site to Dr. Felix, with local treatment initiated. Dr. Felix also ordered GI consult because of cracks in the gastrostomy tube itself. Spoke with Dr. Andrade, GI regarding consult. He will be able to see patient today, could be tomorrow. Updated patient's sister Beckie of new order and GI consult. Appreciated the update given.
[2020-02-10 19:48] VITALS: BP 128/61
[2020-02-10] MEDS: ASCORBIC ACID 500 MG TABLET GT SCH (21:40)
[2020-02-10] MEDS: INSULIN GLARGINE,BASAGLAR 100 UNIT/ML INSULN.PEN SQ SCH (21:41)
[2020-02-11] MEDS: METOCLOPRAMIDE HCL 10 MG/10 ML UDC GT SCH ×5 (00:46→23:46)
[2020-02-11] MEDS: GABAPENTIN 250 MG/5 ML GT SCH ×3 (05:27→20:59)
[2020-02-11] MEDS: OMEPRAZOLE 20 MG CAPSULE.DR GT SCH (05:27)
[2020-02-11 07:42] VITALS: BP 136/75
[2020-02-11] MEDS: HYDROGEN PEROXIDE 480 ML BOTTLE TP SCH ×2 (09:00→21:00)
[2020-02-11] MEDS: DOCUSATE SODIUM LIQ 100 MG/10 ML UDC GT SCH (09:22)
[2020-02-11] MEDS: LEVETIRACETAM SOL (5 ML) 100 MG/ML UDC GT SCH ×2 (09:22→20:59)
[2020-02-11] MEDS: ACIDOPHILUS/BULGARICUS 1 EACH TAB.CHEW GT SCH ×2 (09:22→17:58)
[2020-02-11] MEDS: SENNOSIDES 8.6 MG TABLET GT SCH ×2 (09:22→20:59)
[2020-02-11] MEDS: SIMETHICONE SUSP 40 MG/0.6 ML BOTTLE GT SCH ×2 (09:22→20:59)
[2020-02-11] MEDS: MULTIVIT W/MINERALS 1 TAB TABLET GT SCH (09:23)
[2020-02-11] MEDS: BLOOD SUGAR DIAGNOSTIC 1 EACH STRIP IN SCH ×2 (09:23→21:22)
[2020-02-11] MEDS: OXCARBAZEPINE 150 MG TABLET GT SCH ×2 (09:23→20:59)
[2020-02-11] MEDS: Z GUARD REMEDY 4 OZ OINT TP SCH ×4 (09:23→21:00)
[2020-02-11] MEDS: TRIAMCINOLONE ACETONIDE 0.1% CR 15 GM TUBE TP SCH ×2 (09:23→21:00)
[2020-02-11] MEDS: INSULIN REGULAR, HUMAN 100 UNIT/ML 3 ML VIAL SQ PRN ×2 (09:33→21:23)
[2020-02-11 20:27] VITALS: BP 122/71
[2020-02-11] MEDS: ASCORBIC ACID 500 MG TABLET GT SCH (20:59)
[2020-02-11] MEDS: INSULIN GLARGINE,BASAGLAR 100 UNIT/ML INSULN.PEN SQ SCH (21:24)
[2020-02-12] MEDS: METOCLOPRAMIDE HCL 10 MG/10 ML UDC GT SCH ×3 (05:06→17:40)
[2020-02-12] MEDS: GABAPENTIN 250 MG/5 ML GT SCH ×3 (05:06→20:11)
[2020-02-12] MEDS: OMEPRAZOLE 20 MG CAPSULE.DR GT SCH (05:06)
[2020-02-12] MEDS: LEVETIRACETAM SOL (5 ML) 100 MG/ML UDC GT SCH ×2 (09:14→20:11)
[2020-02-12] MEDS: DOCUSATE SODIUM LIQ 100 MG/10 ML UDC GT SCH (09:14)
[2020-02-12] MEDS: SENNOSIDES 8.6 MG TABLET GT SCH ×2 (09:15→20:11)
[2020-02-12] MEDS: MULTIVIT W/MINERALS 1 TAB TABLET GT SCH (09:15)
[2020-02-12] MEDS: ACIDOPHILUS/BULGARICUS 1 EACH TAB.CHEW GT SCH ×2 (09:15→16:19)
[2020-02-12] MEDS: OXCARBAZEPINE 150 MG TABLET GT SCH ×2 (09:15→20:11)
[2020-02-12] MEDS: SIMETHICONE SUSP 40 MG/0.6 ML BOTTLE GT SCH ×2 (09:15→20:11)
[2020-02-12] MEDS: BLOOD SUGAR DIAGNOSTIC 1 EACH STRIP IN SCH ×2 (09:15→21:05)
[2020-02-12] MEDS: TRIAMCINOLONE ACETONIDE 0.1% CR 15 GM TUBE TP SCH ×2 (09:16→20:11)
[2020-02-12] MEDS: Z GUARD REMEDY 4 OZ OINT TP SCH ×4 (09:16→20:11)
[2020-02-12] MEDS: INSULIN REGULAR, HUMAN 100 UNIT/ML 3 ML VIAL SQ PRN ×2 (09:19→21:08)
[2020-02-12] MEDS: HYDROGEN PEROXIDE 480 ML BOTTLE TP SCH ×2 (09:39→20:36)
[2020-02-12] MEDS: NEPRO 1,000 ML BOTTLE NG PRN (16:22)
[2020-02-12 19:42] VITALS: BP 119/66
[2020-02-12] MEDS: ASCORBIC ACID 500 MG TABLET GT SCH (20:11)
[2020-02-12] MEDS: INSULIN GLARGINE,BASAGLAR 100 UNIT/ML INSULN.PEN SQ SCH (21:06)
[2020-02-13] MEDS: METOCLOPRAMIDE HCL 10 MG/10 ML UDC GT SCH ×5 (00:02→23:41)
[2020-02-13] MEDS: GABAPENTIN 250 MG/5 ML GT SCH ×3 (05:32→21:28)
[2020-02-13] MEDS: OMEPRAZOLE 20 MG CAPSULE.DR GT SCH (05:32)
[2020-02-13 06:43] LABS: HEMOGLOBIN 8.3 g/dL (11.5-14.8)
[2020-02-13 07:30] VITALS: BP 123/73
[2020-02-13] MEDS: HYDROGEN PEROXIDE 480 ML BOTTLE TP SCH ×2 (09:00→21:00)
[2020-02-13] MEDS: DOCUSATE SODIUM LIQ 100 MG/10 ML UDC GT SCH (09:16)
[2020-02-13] MEDS: LEVETIRACETAM SOL (5 ML) 100 MG/ML UDC GT SCH ×2 (09:16→21:28)
[2020-02-13] MEDS: ACIDOPHILUS/BULGARICUS 1 EACH TAB.CHEW GT SCH ×2 (09:16→17:06)
[2020-02-13] MEDS: SENNOSIDES 8.6 MG TABLET GT SCH ×2 (09:17→21:28)
[2020-02-13] MEDS: MULTIVIT W/MINERALS 1 TAB TABLET GT SCH (09:17)
[2020-02-13] MEDS: BLOOD SUGAR DIAGNOSTIC 1 EACH STRIP IN SCH ×2 (09:17→21:28)
[2020-02-13] MEDS: Z GUARD REMEDY 4 OZ OINT TP SCH ×4 (09:17→21:28)
[2020-02-13] MEDS: OXCARBAZEPINE 150 MG TABLET GT SCH ×2 (09:17→21:28)
[2020-02-13] MEDS: TRIAMCINOLONE ACETONIDE 0.1% CR 15 GM TUBE TP SCH ×2 (09:17→21:28)
[2020-02-13] MEDS: SIMETHICONE SUSP 40 MG/0.6 ML BOTTLE GT SCH ×2 (09:17→21:28)
[2020-02-13] MEDS: INSULIN REGULAR, HUMAN 100 UNIT/ML 3 ML VIAL SQ PRN (09:20)
[2020-02-13] MEDS: NEPRO 1,000 ML BOTTLE NG PRN (17:09)
--- NOTE | 2020-02-13 17:24 | NUR ---
RT NOTE PT REMAINS MECHANICALLY VENTILATED VIA CUFFED TRACHEOSTOMY TUBE. CUFF INFLATED. TRACH TUBE MIDLINE AND SECURE. VENTILATOR SETTINGS PRESCRIBED. ALARMS SET PER PROTOCOL AND AUDIBLE. VENT PLUGGED IN TO RED OUTLET. AMBU BAG AND BACK UP TRACH AT BED SIDE. NO DISTRESS NOTED. Addendum: 02/13/20 at 1724 by MAXI BRADY RT Amended: Links added.
[2020-02-13] MEDS: EPOETIN ALFA (4000 UNIT) 4,000 UNIT/ML VIAL SQ SCH (18:14)
[2020-02-13 19:41] VITALS: BP 139/80
[2020-02-13] MEDS: ASCORBIC ACID 500 MG TABLET GT SCH (21:28)
[2020-02-13] MEDS: INSULIN GLARGINE,BASAGLAR 100 UNIT/ML INSULN.PEN SQ SCH (21:29)
[2020-02-14] MEDS: METOCLOPRAMIDE HCL 10 MG/10 ML UDC GT SCH ×4 (05:24→23:13)
[2020-02-14] MEDS: OMEPRAZOLE 20 MG CAPSULE.DR GT SCH (05:24)
[2020-02-14] MEDS: GABAPENTIN 250 MG/5 ML GT SCH ×3 (05:24→21:31)
[2020-02-14 07:58] VITALS: BP 124/75
[2020-02-14] MEDS: ACIDOPHILUS/BULGARICUS 1 EACH TAB.CHEW GT SCH ×2 (08:56→17:25)
[2020-02-14] MEDS: OXCARBAZEPINE 150 MG TABLET GT SCH ×2 (08:56→21:31)
[2020-02-14] MEDS: SENNOSIDES 8.6 MG TABLET GT SCH ×2 (08:56→21:31)
[2020-02-14] MEDS: MULTIVIT W/MINERALS 1 TAB TABLET GT SCH (08:56)
[2020-02-14] MEDS: LEVETIRACETAM SOL (5 ML) 100 MG/ML UDC GT SCH ×2 (08:56→21:31)
[2020-02-14] MEDS: DOCUSATE SODIUM LIQ 100 MG/10 ML UDC GT SCH (08:56)
[2020-02-14] MEDS: SIMETHICONE SUSP 40 MG/0.6 ML BOTTLE GT SCH ×2 (08:56→21:31)
[2020-02-14] MEDS: TRIAMCINOLONE ACETONIDE 0.1% CR 15 GM TUBE TP SCH (09:00)
[2020-02-14] MEDS: Z GUARD REMEDY 4 OZ OINT TP SCH ×4 (09:00→21:32)
[2020-02-14] MEDS: BLOOD SUGAR DIAGNOSTIC 1 EACH STRIP IN SCH ×2 (09:00→21:31)
[2020-02-14] MEDS: HYDROGEN PEROXIDE 480 ML BOTTLE TP SCH ×2 (09:13→21:00)
[2020-02-14] MEDS: INSULIN REGULAR, HUMAN 100 UNIT/ML 3 ML VIAL SQ PRN ×2 (10:46→21:34)
--- NOTE | 2020-02-14 12:01 | NUR ---
Family Invite to IDT: SW called the pt.s familyBeckie [phone] and left a voicemail inviting them to participate in IDT 02/17/2020 12:30PM. SW will await family's response.
[2020-02-14] MEDS: NEPRO 1,000 ML BOTTLE NG PRN (18:33)
[2020-02-14 19:52] VITALS: BP 130/69
[2020-02-14] MEDS: ASCORBIC ACID 500 MG TABLET GT SCH (21:31)
[2020-02-14] MEDS: INSULIN GLARGINE,BASAGLAR 100 UNIT/ML INSULN.PEN SQ SCH (21:32)
[2020-02-15] MEDS: METOCLOPRAMIDE HCL 10 MG/10 ML UDC GT SCH ×4 (05:36→23:40)
[2020-02-15] MEDS: OMEPRAZOLE 20 MG CAPSULE.DR GT SCH (05:36)
[2020-02-15] MEDS: GABAPENTIN 250 MG/5 ML GT SCH ×3 (05:36→21:21)
[2020-02-15 07:32] VITALS: BP 128/70
[2020-02-15] MEDS: ACIDOPHILUS/BULGARICUS 1 EACH TAB.CHEW GT SCH ×2 (09:34→17:07)
[2020-02-15] MEDS: OXCARBAZEPINE 150 MG TABLET GT SCH ×2 (09:34→21:21)
[2020-02-15] MEDS: MULTIVIT W/MINERALS 1 TAB TABLET GT SCH (09:34)
[2020-02-15] MEDS: SENNOSIDES 8.6 MG TABLET GT SCH ×2 (09:34→21:21)
[2020-02-15] MEDS: LEVETIRACETAM SOL (5 ML) 100 MG/ML UDC GT SCH ×2 (09:34→21:21)
[2020-02-15] MEDS: SIMETHICONE SUSP 40 MG/0.6 ML BOTTLE GT SCH ×2 (09:34→21:21)
[2020-02-15] MEDS: DOCUSATE SODIUM LIQ 100 MG/10 ML UDC GT SCH (09:34)
[2020-02-15] MEDS: BLOOD SUGAR DIAGNOSTIC 1 EACH STRIP IN SCH ×2 (09:38→21:21)
[2020-02-15] MEDS: Z GUARD REMEDY 4 OZ OINT TP SCH ×4 (09:38→21:21)
[2020-02-15] MEDS: INSULIN REGULAR, HUMAN 100 UNIT/ML 3 ML VIAL SQ PRN ×2 (09:51→21:23)
[2020-02-15] MEDS: HYDROGEN PEROXIDE 480 ML BOTTLE TP SCH ×2 (10:12→20:28)
[2020-02-15] MEDS: NEPRO 1,000 ML BOTTLE NG PRN (17:08)
[2020-02-15 20:04] VITALS: BP 118/67
[2020-02-15] MEDS: ASCORBIC ACID 500 MG TABLET GT SCH (21:21)
[2020-02-15] MEDS: INSULIN GLARGINE,BASAGLAR 100 UNIT/ML INSULN.PEN SQ SCH (21:22)
[2020-02-16] MEDS: OMEPRAZOLE 20 MG CAPSULE.DR GT SCH (05:27)
[2020-02-16] MEDS: GABAPENTIN 250 MG/5 ML GT SCH ×3 (05:27→20:52)
[2020-02-16] MEDS: METOCLOPRAMIDE HCL 10 MG/10 ML UDC GT SCH ×4 (05:28→23:10)
[2020-02-16 07:36] VITALS: BP 149/78
[2020-02-16] MEDS: LEVETIRACETAM SOL (5 ML) 100 MG/ML UDC GT SCH ×2 (09:13→20:52)
[2020-02-16] MEDS: ACIDOPHILUS/BULGARICUS 1 EACH TAB.CHEW GT SCH ×2 (09:13→17:00)
[2020-02-16] MEDS: SIMETHICONE SUSP 40 MG/0.6 ML BOTTLE GT SCH ×2 (09:13→20:52)
[2020-02-16] MEDS: DOCUSATE SODIUM LIQ 100 MG/10 ML UDC GT SCH (09:13)
[2020-02-16] MEDS: OXCARBAZEPINE 150 MG TABLET GT SCH ×2 (09:15→20:52)
[2020-02-16] MEDS: SENNOSIDES 8.6 MG TABLET GT SCH ×2 (09:15→20:52)
[2020-02-16] MEDS: MULTIVIT W/MINERALS 1 TAB TABLET GT SCH (09:15)
[2020-02-16] MEDS: BLOOD SUGAR DIAGNOSTIC 1 EACH STRIP IN SCH ×2 (09:16→20:52)
[2020-02-16] MEDS: Z GUARD REMEDY 4 OZ OINT TP SCH ×4 (09:16→20:52)
[2020-02-16] MEDS: INSULIN REGULAR, HUMAN 100 UNIT/ML 3 ML VIAL SQ PRN ×2 (09:40→20:53)
--- NOTE | 2020-02-16 11:31 | NUR ---
Called Dr Martines to request him to see pt for cracked G-tube, left message. G-tube still functioning for feeding and medications, but needs to be replaced. Called Dr Martines's other office number and staff said Dr Martines will be in tomorrow.
[2020-02-16] MEDS: HYDROGEN PEROXIDE 480 ML BOTTLE TP SCH ×2 (12:12→21:00)
[2020-02-16 19:36] VITALS: BP 125/71
[2020-02-16] MEDS: ASCORBIC ACID 500 MG TABLET GT SCH (20:52)
[2020-02-16] MEDS: NEPRO 1,000 ML BOTTLE NG PRN (21:24)
[2020-02-16] MEDS: INSULIN GLARGINE,BASAGLAR 100 UNIT/ML INSULN.PEN SQ SCH (21:24)
[2020-02-17] MEDS: METOCLOPRAMIDE HCL 10 MG/10 ML UDC GT SCH ×4 (05:31→23:00)
[2020-02-17] MEDS: GABAPENTIN 250 MG/5 ML GT SCH ×3 (05:31→20:42)
[2020-02-17] MEDS: OMEPRAZOLE 20 MG CAPSULE.DR GT SCH (05:31)
--- NOTE | 2020-02-17 06:00 | NUR ---
Patient GT balloon broken and dislodged. Replaced with [id number] balloon without difficulty, no bleeding noted. KUB ordered to check placement. Will endorse to oncoming shift.
[2020-02-17] MEDS ORDERED: DIATR MEGLU/DIATRIZOATE SODIUM 30 ML BOTTLE (GASTROGRAPHIN) ONE (06:16)
[2020-02-17 06:39] LABS: BASOPHILS # (AUTO) 0.1 /CMM (0.0-0.2); BASOPHILS % (AUTO) 0.4 % (0.0-2.0); EOSINOPHILS % (AUTO) 7.4 % (0.0-6.0); HEMATOCRIT 24 % (33-45); HEMOGLOBIN 8.2 g/dL (11.5-14.8); LYMPHOCYTES # (AUTO) 2.3 /CMM (0.8-4.8); LYMPHOCYTES % (AUTO) 17.6 % (20.0-44.0); MEAN CORPUSCULAR HGB CONC 35 g/dl (31.0-36.0); MEAN CORPUSCULAR VOLUME 98 fL (82-100); MONOCYTES # (AUTO) 0.8 /CMM (0.1-1.30); NEUTROPHILS # (AUTO) 8.9 /CMM (1.8-8.9); NEUTROPHILS % (AUTO) 68.6 % (43.0-81.0); PLATELET COUNT (AUTO) 362 /CMM (150-450); RED BLOOD CELL COUNT(AUTO) 2.43 MIL/uL (4.0-5.2); WHITE BLOOD COUNT (AUTO) 12.9 K/uL (4.3-11.0)
[2020-02-17 07:10] LABS: ALBUMIN 2.4 g/dL (3.4-5.0); BILIRUBIN,TOTAL 0.1 mg/dL (0.2-1.0); CREATININE 3.9 mg/dL (0.6-1.3); MAGNESIUM 3.9 mg/dL (1.8-2.4); PHOSPHORUS 4.9 mg/dL (2.5-4.9); POTASSIUM 3.4 mmol/L (3.5-5.1); TOTAL PROTEIN, SERUM 9.8 g/dL (6.4-8.2)
[2020-02-17 07:53] VITALS: BP 148/63
--- NOTE | 2020-02-17 08:31 | NUR ---
RT NOTE PT REMAINS MECHANICALLY VENTILATED VIA CUFFED TRACHEOSTOMY TUBE. CUFF INFLATED. TRACH TUBE MIDLINE AND SECURE. VENTILATOR SETTINGS PRESCRIBED. ALARMS SET PER PROTOCOL AND AUDIBLE. VENT PLUGGED IN TO RED OUTLET. AMBU BAG AND BACK UP TRACH AT BED SIDE. NO DISTRESS NOTED AT MOMENT. Addendum: 02/17/20 at 0831 by MAXI BRADY RT Amended: Links added.
--- NOTE | 2020-02-17 08:40 | NUR ---
Referred CMP and CBC result for today to Dr. Kumar, BUN 107, Creat 3.9, Na 123 and K= 3.4, he said that he will be in shortly to review the results.
[2020-02-17] MEDS: HYDROGEN PEROXIDE 480 ML BOTTLE TP SCH ×2 (09:00→19:51)
[2020-02-17] MEDS: SENNOSIDES 8.6 MG TABLET GT SCH ×2 (09:15→20:42)
[2020-02-17] MEDS: DOCUSATE SODIUM LIQ 100 MG/10 ML UDC GT SCH (09:15)
[2020-02-17] MEDS: SIMETHICONE SUSP 40 MG/0.6 ML BOTTLE GT SCH ×2 (09:15→20:42)
[2020-02-17] MEDS: LEVETIRACETAM SOL (5 ML) 100 MG/ML UDC GT SCH ×2 (09:15→20:42)
[2020-02-17] MEDS: ACIDOPHILUS/BULGARICUS 1 EACH TAB.CHEW GT SCH ×2 (09:15→17:08)
[2020-02-17] MEDS: OXCARBAZEPINE 150 MG TABLET GT SCH ×2 (09:16→20:42)
[2020-02-17] MEDS: MULTIVIT W/MINERALS 1 TAB TABLET GT SCH (09:16)
[2020-02-17] MEDS: BLOOD SUGAR DIAGNOSTIC 1 EACH STRIP IN SCH ×2 (09:17→21:08)
[2020-02-17] MEDS: INSULIN REGULAR, HUMAN 100 UNIT/ML 3 ML VIAL SQ PRN ×2 (09:34→21:09)
[2020-02-17] MEDS: Z GUARD REMEDY 4 OZ OINT TP SCH ×4 (09:36→20:42)
[2020-02-17 09:53] LABS: EOSINOPHILS % (MANUAL) 9 % (0-4); LYMPHOCYTES % (MANUAL) 16 % (16-48); MONOCYTES % (MANUAL) 4 % (0-11.0); NEUTROPHILS % (MANUAL) 71 (42-76)
--- NOTE | 2020-02-17 11:06 | NUR ---
MDS: This SW completed the SS portion of 2ND Quarter MDS. The patients sister is the Conservator, Beckie Chu [phone] who is very involved and supportive. The patient is lethargic, pleasant and non-communicative. 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 The patients last dental exam and cleaning by Dr. Elliott was on 02/04/2019. The patients last optometry exam by Dr. Escalante was on 07/04/2019. The patients last podiatry exam by Dr. Michael was on 02/09/2020.
--- NOTE | 2020-02-17 11:41 | NUR ---
Monthly progress note Resident is alert ,but unable to communicate her needs ,she is a ventilator dependent . she receive daily room visits for sensory stimulation reality orientation ,according to her sister , she enjoy to watch cartoons , so we provided these activities every day also music and read some magazines . some times she smiles during conversation , provided some hand massage resident received room visited twice a day, these Activities will provided as needed for these month there is no significant changes for Activities
--- NOTE | 2020-02-17 15:46 | NUR ---
INTERDISCIPLINARY PLAN OF CARE CONFERENCE was held today. The patients conservator, Beckie Chu [phone] was unable to participate. Charge nurse discussed pt.s feeding changed to Nephro; 01/30 bilateral thigh redness & Tx; 02/09 g-tube redness & Tx. Dr. Felix and Interdisciplinary team discussed the plan of care in detail. Current orders as well as treatments and medications were reviewed. See other disciplines IDT notes for further details.
[2020-02-17 20:05] VITALS: BP_SYST 129; BP_SYST 138; BP_DIAS 66; BP_DIAS 78
[2020-02-17] MEDS: ASCORBIC ACID 500 MG TABLET GT SCH (20:42)
[2020-02-17] MEDS: INSULIN GLARGINE,BASAGLAR 100 UNIT/ML INSULN.PEN SQ SCH (21:08)
[2020-02-18] MEDS: NEPRO 1,000 ML BOTTLE NG PRN ×2 (05:26→18:54)
[2020-02-18] MEDS: METOCLOPRAMIDE HCL 10 MG/10 ML UDC GT SCH ×4 (05:26→23:05)
[2020-02-18] MEDS: OMEPRAZOLE 20 MG CAPSULE.DR GT SCH (05:26)
[2020-02-18] MEDS: GABAPENTIN 250 MG/5 ML GT SCH ×3 (05:26→20:11)
[2020-02-18 07:32] VITALS: BP 129/84
[2020-02-18] MEDS: HYDROGEN PEROXIDE 480 ML BOTTLE TP SCH ×2 (09:05→19:30)
[2020-02-18] MEDS: SIMETHICONE SUSP 40 MG/0.6 ML BOTTLE GT SCH ×2 (09:17→20:11)
[2020-02-18] MEDS: DOCUSATE SODIUM LIQ 100 MG/10 ML UDC GT SCH (09:17)
[2020-02-18] MEDS: LEVETIRACETAM SOL (5 ML) 100 MG/ML UDC GT SCH ×2 (09:17→20:11)
[2020-02-18] MEDS: ACIDOPHILUS/BULGARICUS 1 EACH TAB.CHEW GT SCH ×2 (09:17→17:07)
[2020-02-18] MEDS: SENNOSIDES 8.6 MG TABLET GT SCH ×2 (09:18→20:11)
[2020-02-18] MEDS: MULTIVIT W/MINERALS 1 TAB TABLET GT SCH (09:18)
[2020-02-18] MEDS: OXCARBAZEPINE 150 MG TABLET GT SCH ×2 (09:18→20:12)
[2020-02-18] MEDS: BLOOD SUGAR DIAGNOSTIC 1 EACH STRIP IN SCH ×2 (09:19→21:18)
[2020-02-18] MEDS: INSULIN REGULAR, HUMAN 100 UNIT/ML 3 ML VIAL SQ PRN ×2 (09:20→21:19)
[2020-02-18] MEDS: Z GUARD REMEDY 4 OZ OINT TP SCH ×4 (09:21→20:12)
--- NOTE | 2020-02-18 18:56 | NUR ---
Spoke with resident's sister Beckie, gave an update of patient's condition , recent lab results and new order. She was made aware of CBS, CMP result collected on 02/17/20 and follow-up lab ordered by Dr. Kumar for tomorrow. Urine specimen sent to the lab. Informed family that GT was replaced by staff due to dislodged gastrostomy tube. Placement confirmed via KUB. Appreciated the update given to her, said she will call tomorrow to check tomorrow's lab results. Endorsed.
[2020-02-18 19:57] VITALS: BP 122/58
[2020-02-18] MEDS: ASCORBIC ACID 500 MG TABLET GT SCH (20:12)
[2020-02-18] MEDS: MAGNESIUM HYDROXIDE 30 ML UDC GT PRN (20:13)
[2020-02-18] MEDS: INSULIN GLARGINE,BASAGLAR 100 UNIT/ML INSULN.PEN SQ SCH (21:19)
[2020-02-19] MEDS: METOCLOPRAMIDE HCL 10 MG/10 ML UDC GT SCH ×4 (05:12→23:52)
[2020-02-19] MEDS: NEPRO 1,000 ML BOTTLE NG PRN (05:12)
[2020-02-19] MEDS: GABAPENTIN 250 MG/5 ML GT SCH ×3 (05:12→21:02)
[2020-02-19] MEDS: OMEPRAZOLE 20 MG CAPSULE.DR GT SCH (05:12)
[2020-02-19 07:09] LABS: CALCIUM, SERUM 10.8 mg/dL (8.5-10.1); CREATININE 4.8 mg/dL (0.6-1.3); POTASSIUM 3.3 mmol/L (3.5-5.1)
[2020-02-19 07:22] VITALS: BP 90/60
[2020-02-19 07:35] LABS: THYROID STIMULATING HORMONE 2.01 uIU/mL (0.358-3.74); URIC ACID 10.3 mg/dL (2.6-7.2)
[2020-02-19] MEDS ORDERED: IV NS 0.9% 1,000 ML IV PRN (08:41)
[2020-02-19] MEDS: HYDROGEN PEROXIDE 480 ML BOTTLE TP SCH ×2 (09:35→19:46)
[2020-02-19] MEDS: MULTIVIT W/MINERALS 1 TAB TABLET GT SCH (09:59)
[2020-02-19] MEDS: ACIDOPHILUS/BULGARICUS 1 EACH TAB.CHEW GT SCH ×2 (09:59→17:25)
[2020-02-19] MEDS: Z GUARD REMEDY 4 OZ OINT TP SCH ×4 (09:59→21:06)
[2020-02-19] MEDS: SENNOSIDES 8.6 MG TABLET GT SCH ×2 (09:59→21:04)
[2020-02-19] MEDS: DOCUSATE SODIUM LIQ 100 MG/10 ML UDC GT SCH (09:59)
[2020-02-19] MEDS: BLOOD SUGAR DIAGNOSTIC 1 EACH STRIP IN SCH ×2 (09:59→21:05)
[2020-02-19] MEDS: LEVETIRACETAM SOL (5 ML) 100 MG/ML UDC GT SCH ×2 (09:59→21:03)
[2020-02-19] MEDS: SIMETHICONE SUSP 40 MG/0.6 ML BOTTLE GT SCH ×2 (09:59→21:04)
[2020-02-19] MEDS: OXCARBAZEPINE 150 MG TABLET GT SCH ×2 (09:59→21:05)
[2020-02-19] MEDS: INSULIN REGULAR, HUMAN 100 UNIT/ML 3 ML VIAL SQ PRN ×2 (10:01→21:09)
--- NOTE | 2020-02-19 10:15 | NUR ---
Dr. Kumar ordered to give IV fluid NS 1000 l ( 1 bag) at 100 ml/hr due to elevated BUN 120. Started heplock to right hand, started IV fluid, infusing well at this time. Left message to voice mail of Dr. Luis regarding WBC results and K+. Patient not in distress, closely monitored. Called and spoke to patients' sister (Beckie) made her aware that patient started on IV per MD order.
[2020-02-19] MEDS ORDERED: IV NS 0.9% 1,000 ML IV ONE (10:58)
--- NOTE | 2020-02-19 15:30 | NUR ---
latest temp at this time, 98.5, still on IV fluid NS 1000 ml at 100 ml/hr. no distress noted.
[2020-02-19] MEDS: BISACODYL SUPP (10 MG) 10 MG/SUPP.RECT SUPP.RECT RC PRN (18:09)
[2020-02-19 20:25] VITALS: BP 94/67
[2020-02-19] MEDS: ASCORBIC ACID 500 MG TABLET GT SCH (21:05)
[2020-02-19] MEDS: INSULIN GLARGINE,BASAGLAR 100 UNIT/ML INSULN.PEN SQ SCH (21:07)
[2020-02-20] MEDS: GABAPENTIN 250 MG/5 ML GT SCH ×3 (05:43→20:26)
[2020-02-20] MEDS: OMEPRAZOLE 20 MG CAPSULE.DR GT SCH (05:44)
[2020-02-20] MEDS: METOCLOPRAMIDE HCL 10 MG/10 ML UDC GT SCH ×4 (05:45→23:44)
[2020-02-20 07:34] VITALS: BP 109/58
[2020-02-20 08:06] LABS: BASOPHILS % (AUTO) 0.1 % (0.0-2.0); EOSINOPHILS % (AUTO) 0.2 % (0.0-6.0); HEMATOCRIT 23 % (33-45); HEMOGLOBIN 7.8 g/dL (11.5-14.8); LYMPHOCYTES # (AUTO) 1.5 /CMM (0.8-4.8); LYMPHOCYTES % (AUTO) 5.4 % (20.0-44.0); MEAN CORPUSCULAR HGB CONC 33 g/dl (31.0-36.0); MEAN CORPUSCULAR VOLUME 99 fL (82-100); MONOCYTES # (AUTO) 1.1 /CMM (0.1-1.30); NEUTROPHILS # (AUTO) 24.9 /CMM (1.8-8.9); NEUTROPHILS % (AUTO) 90.3 % (43.0-81.0); PLATELET COUNT (AUTO) 322 /CMM (150-450); RED BLOOD CELL COUNT(AUTO) 2.35 MIL/uL (4.0-5.2); WHITE BLOOD COUNT (AUTO) 27.6 K/uL (4.3-11.0)
[2020-02-20 08:32] LABS: ALBUMIN 2.3 g/dL (3.4-5.0); BILIRUBIN,TOTAL 0.4 mg/dL (0.2-1.0); CALCIUM, SERUM 10.9 mg/dL (8.5-10.1); CREATININE 5.8 mg/dL (0.6-1.3); PHOSPHORUS 3.6 mg/dL (2.5-4.9); POTASSIUM 3.5 mmol/L (3.5-5.1); TOTAL PROTEIN, SERUM 10.6 g/dL (6.4-8.2)
[2020-02-20 08:38] LABS: MAGNESIUM 4.5 mg/dL (1.8-2.4)
[2020-02-20] MEDS: NEPRO 1,000 ML BOTTLE NG PRN (08:38)
[2020-02-20] MEDS: HYDROGEN PEROXIDE 480 ML BOTTLE TP SCH ×2 (08:40→21:00)
[2020-02-20] MEDS: Z GUARD REMEDY 4 OZ OINT TP SCH ×4 (08:55→20:30)
[2020-02-20] MEDS: SIMETHICONE SUSP 40 MG/0.6 ML BOTTLE GT SCH ×2 (08:55→20:28)
[2020-02-20] MEDS: MULTIVIT W/MINERALS 1 TAB TABLET GT SCH (08:55)
[2020-02-20] MEDS: LEVETIRACETAM SOL (5 ML) 100 MG/ML UDC GT SCH ×2 (08:55→20:28)
[2020-02-20] MEDS: OXCARBAZEPINE 150 MG TABLET GT SCH ×2 (08:55→20:29)
[2020-02-20] MEDS: SENNOSIDES 8.6 MG TABLET GT SCH ×2 (08:55→20:29)
[2020-02-20] MEDS: DOCUSATE SODIUM LIQ 100 MG/10 ML UDC GT SCH (08:55)
[2020-02-20] MEDS: ACIDOPHILUS/BULGARICUS 1 EACH TAB.CHEW GT SCH ×2 (08:55→16:49)
[2020-02-20] MEDS: BLOOD SUGAR DIAGNOSTIC 1 EACH STRIP IN SCH ×2 (08:55→20:30)
[2020-02-20] MEDS: INSULIN REGULAR, HUMAN 100 UNIT/ML 3 ML VIAL SQ PRN ×2 (08:56→20:32)
--- NOTE | 2020-02-20 10:27 | NUR ---
Dr Kumar ordered CBC, CMP, Mg, Phos for tomorrow. CXR, urine culture, sputum culture, blood culture x 2 were ordered for today. He is aware of lab results today. WBC 27.6, T 98.8 F. Notified
--- NOTE | 2020-02-20 12:00 | NUR ---
RT SPUTUM SPECIMEN OBTAINED AT 1200, SAMPLE GIVEN TO ENTRY LEVEL ADMINISTRATIVE ASSISTANT Addendum: 02/20/20 at 1535 by BARBARA ESPINOZA RT Amended: Links added.
[2020-02-20 13:26] LABS: APPEARANCE,URINE CLOUDY (CLEAR); BILIRUBIN,URINE NEGATIVE (NEGATIVE); BLOOD, URINE MODERATE Ery/uL (NEGATIVE); COLOR,URINE YELLOW (YELLOW); KETONES,URINE NEGATIVE (NEGATIVE); LEUKOCYTE ESTERASE ,URINE MODERATE (NEGATIVE); NITRITE, URINE NEGATIVE (NEGATIVE); PROTEIN,URINE >=300 mg/dl (NEGATIVE); UGLUCOSE NEGATIVE (NEGATIVE); UROBILINOGEN,URINE 0.2 EU/dL (0.2)
[2020-02-20 13:38] LABS: BACTERIA,URINE Many /HPF (None Seen); SQUAMOUS EPITHELIAL CELL,UR Few /HPF (None Seen); URINE AMORPHOUS URATE Few /HPF (None Seen); WBC,URINE 21-50 /HPF (0-3)
[2020-02-20 13:39] LABS: CREATININE, URINE 38.6 MG/DL (30.0-125.0)
--- NOTE | 2020-02-20 13:41 | NUR ---
Followed up pt's Epogen with [facility] again. Charge nurse has been following up weekly and per [facility], approval from insurance is still pending. Prior authorization approval has been pending for 2-3 weeks now. Spoke with Amarilys and she said she will follow up on it. Addendum: 02/20/20 at 1343 by SARITA GOMEZ RN Epogen being provided by [facility] while awaiting approval
[2020-02-20 13:46] LABS: URINE TOTAL PROTEIN 700.9 mg/dL (0-11.9)
[2020-02-20 14:43] LABS: EOSINOPHIL,URINE None Seen
[2020-02-20] MEDS: BISACODYL SUPP (10 MG) 10 MG/SUPP.RECT SUPP.RECT RC PRN (18:32)
--- NOTE | 2020-02-20 18:50 | NUR ---
Left message for NAN Vargas that pt has not had a bowel movement for 3 days now. Pt was given stool softeners and suppositories. Pt's abdomen is distended. Checked for gastric residual but only noted gas. Asked NAN Vargas KUB can be done and an enema can be administered. Waiting for orders. NAN Vargas said today that she will see patients after 7pm tonight.
--- NOTE | 2020-02-20 20:15 | NUR ---
RN NOTES Seen and examined by NAN Castillo, with new orders for tap water enema x2, KUB and renal US to r/o obstruction, noted and carried out. Pt with abdominal distention and hard to touch. Will continue to monitor.
[2020-02-20 20:24] VITALS: BP 130/81
[2020-02-20] MEDS: ASCORBIC ACID 500 MG TABLET GT SCH (20:30)
--- NOTE | 2020-02-20 21:00 | NUR ---
RN NOTES Tap water enema x 2 done with medium size bowel movement noted. Will continue to monitor.
[2020-02-20] MEDS: INSULIN GLARGINE,BASAGLAR 100 UNIT/ML INSULN.PEN SQ SCH (21:12)
--- NOTE | 2020-02-21 00:15 | NUR ---
RN NOTES Noted pt with episode of vomiting. Feeding held. Will Continue to monitor.
--- NOTE | 2020-02-21 00:30 | NUR ---
RN NOTES Kub done. Will await for results.
--- NOTE | 2020-02-21 02:00 | NUR ---
RN NOTES Pt asleep with no episode of vomiting at this time. Vital signs WNL B/P 124/56, HR 88, RR 16, O2sat 99%. Will continue to monitor.
[2020-02-21] MEDS: GABAPENTIN 250 MG/5 ML GT SCH ×2 (05:26→13:00)
[2020-02-21] MEDS: OMEPRAZOLE 20 MG CAPSULE.DR GT SCH (05:26)
[2020-02-21] MEDS: METOCLOPRAMIDE HCL 10 MG/10 ML UDC GT SCH ×2 (05:27→12:00)
--- NOTE | 2020-02-21 06:30 | NUR ---
RN NOTES With episode of vomiting noted. Suctioned to maintain airway clearance. No respiratory distress. Pt awake and alert but appears to be tired/weak. Responds when talked to by tracing and moving head towards sound. Repositioned for comfort. Will continue to monitor.
[2020-02-21 07:21] LABS: BASOPHILS % (AUTO) 0.1 % (0.0-2.0); EOSINOPHILS % (AUTO) 0.4 % (0.0-6.0); HEMATOCRIT 24 % (33-45); HEMOGLOBIN 7.9 g/dL (11.5-14.8); LYMPHOCYTES # (AUTO) 0.9 /CMM (0.8-4.8); LYMPHOCYTES % (AUTO) 5.4 % (20.0-44.0); MEAN CORPUSCULAR HGB CONC 33 g/dl (31.0-36.0); MEAN CORPUSCULAR VOLUME 100 fL (82-100); MONOCYTES # (AUTO) 0.8 /CMM (0.1-1.30); NEUTROPHILS # (AUTO) 15.2 /CMM (1.8-8.9); NEUTROPHILS % (AUTO) 89.1 % (43.0-81.0); PLATELET COUNT (AUTO) 354 /CMM (150-450)
[2020-02-21 07:31] VITALS: BP 119/72
[2020-02-21 07:59] LABS: ALBUMIN 2.2 g/dL (3.4-5.0); BILIRUBIN,TOTAL 0.3 mg/dL (0.2-1.0); CALCIUM, SERUM 11.2 mg/dL (8.5-10.1); CREATININE 6.5 mg/dL (0.6-1.3); PHOSPHORUS 5.5 mg/dL (2.5-4.9); POTASSIUM 3.6 mmol/L (3.5-5.1); TOTAL PROTEIN, SERUM 10.4 g/dL (6.4-8.2)
[2020-02-21 08:01] LABS: MAGNESIUM 5.6 mg/dL (1.8-2.4)
--- NOTE | 2020-02-21 08:20 | NUR ---
Asked Dr Kumar to see pt and review pt's lab results. He said he will.
--- NOTE | 2020-02-21 08:35 | NUR ---
Relayed lab and KUB results to Dr Luis. Informed him that pt did not have a bowel movement for 3 days, enema was administered and pt had an output. Also informed him that pt had episodes of vomiting yellowish fluids. Dr Luis ordered for Dr Kumar and surgery training and documentation specialist to see pt. He also ordered NPO except medications, NS at 100 mL/hr IV, connect G-tube to low intermittent suction, Ceftriaxone 1 gm IV daily, CBC and BMP in AM. Notified Beckie. She said she will try to schedule a video call via Zoom with STEPHEN Michel.
[2020-02-21] MEDS: SENNOSIDES 8.6 MG TABLET GT SCH (08:48)
[2020-02-21] MEDS: SIMETHICONE SUSP 40 MG/0.6 ML BOTTLE GT SCH (08:48)
[2020-02-21] MEDS: BLOOD SUGAR DIAGNOSTIC 1 EACH STRIP IN SCH (08:48)
[2020-02-21] MEDS: ACIDOPHILUS/BULGARICUS 1 EACH TAB.CHEW GT SCH (08:48)
[2020-02-21] MEDS: MULTIVIT W/MINERALS 1 TAB TABLET GT SCH (08:48)
[2020-02-21] MEDS: LEVETIRACETAM SOL (5 ML) 100 MG/ML UDC GT SCH (08:48)
[2020-02-21] MEDS: OXCARBAZEPINE 150 MG TABLET GT SCH (08:48)
[2020-02-21] MEDS: DOCUSATE SODIUM LIQ 100 MG/10 ML UDC GT SCH (08:48)
[2020-02-21] MEDS ORDERED: CEFTRIAXONE 1 G in IV D5W 50 ML IV SCH (09:00)
[2020-02-21] MEDS: HYDROGEN PEROXIDE 480 ML BOTTLE TP SCH (09:00)
[2020-02-21] MEDS: INSULIN REGULAR, HUMAN 100 UNIT/ML 3 ML VIAL SQ PRN ×2 (09:00→17:32)
[2020-02-21] MEDS: Z GUARD REMEDY 4 OZ OINT TP SCH ×2 (09:00)
--- NOTE | 2020-02-21 11:48 | NUR ---
Spoke with Dr Sampson. Relayed KUB result to him. He ordered Hypaque enema to rule out colon obstruction. Notified Beckie.
--- NOTE | 2020-02-21 12:45 | NUR ---
TO CONFIRMED ORDER WITH BAUTISTA TAYLOR, JASON RN WILL CONTACT PT INTUBATED. NEED TO MAKE SURE IF THE ORDER IS JUST SMALL BOWEL FOLLOW THROUGH NOT A GASTRO ENEMA.
--- NOTE | 2020-02-21 13:00 | NUR ---
Zachary from Radiology called and said to clarify Gastrografin enema with Dr Sampson. Zachary said they cannot give the enema and take the pt to radiology since pt is on a vent. Asked him if he wanted to order a small bowel follow through. He said to just do tap water enema until clear and do another KUB in AM.
--- NOTE | 2020-02-21 13:08 | NUR ---
ORDER CHANGE TO KUB PER BAUTISTA TAYLOR AND JASON REED FOR AM 0504
--- NOTE | 2020-02-21 13:14 | NUR ---
Followed up Epo again with [facility]. Spoke with Leopoldo. She said they will send it with the 3pm delivery.
[2020-02-21] MEDS ORDERED: IV NS 0.9% 1,000 ML IV PRN (13:30)
--- NOTE | 2020-02-21 15:12 | NUR ---
Left message for Dr Luis if he wanted to transfer pt to acute hospital. Pt's eyes are open but she is not responsive. Tap water enema was administered and she had a large output. BP 132/69 HR 80 T 97.5 F.
--- NOTE | 2020-02-21 15:20 | NUR ---
Dr Luis ordered to transfer pt to ICU. Informed him that rapid response was called for pt. MOTOR BLOCK MECHANIC came immediately. Informed them of pt's change in condition and recent orders. BP 133/71 HR 79 T 97.5 F O2 sat 98% blood sugar 121. Nursing supervisor inspection and ICU charge nurse said to send pt to ICU Room 256.
--- NOTE | 2020-02-21 15:30 | NUR ---
Spoke with [facility] admitting MD/AIRCRAFT NAVIGATOR Zachary Felmdan, informed him that pt is being transferred to ICU. He said to have ICU nurse call him once pt is in ICU so he can see pt there. Report given to BURRER MARKER AXLE Elvia. Also endorsed to her that pt needs to get Epogen this week. Pt was transferred to ICU by licensed nurse, RESIDENCY DIRECTOR, and RT.
--- NOTE | 2020-02-21 16:10 | NUR ---
RT PT TRANSFERRED TO ICU (ROOM 256) BY RT MAXI ABREU DUE TO ABNORMAL LAB WORK. PT STABLE DURING TRANSFER. SPARE TRACH + AMBU BAG AT BEDSIDE. REPORT GIVEN BEDSIDE MAXI Pérez @[id number]
--- NOTE | 2020-02-21 16:34 | NUR ---
Called Beckie hCu. Notified her that pt is in ICU Room 256. She said she already knew pt will eventually be transferred.
[2020-02-21] MEDS ORDERED: SACC250C GT (16:37)
[2020-02-21] MEDS ORDERED: NUT.237L67 GT (16:37)
[2020-02-21] MEDS ORDERED: GABA300C GT (18:19)
[2020-02-21] MEDS ORDERED: ACID1TAB12 GT (18:19)
[2020-02-21] MEDS ORDERED: EPOE4000 IJ (18:19)
--- NOTE | 2020-02-23 10:25 | NUR ---
Family Support: STEPHEN checked-in with the pt.'s sister, Beckie [phone] regarding her feeling about the pt. being transferred to ICU for acute level of care. STEPHEN engaged Beckie in a conversation about how shes coping. Beckie identified having feelings of guilt, sadness, and acceptance. Beckie stated, My sister has suffered enough. STEPHEN heard Beckie became tearful over the phone. STEPHEN used reflective listening, validated and normalized Jessica feelings and encouraged her to do some self-care: Venting, writing a letter, listening to music, working out. Beckie stated that she likes to cope by cleaning and spending time with her daughter. SW will be available as needed to support the resident and their family. STEPHEN informed Beckie that SW will be out of the office next week but nursing staff may be able to assist with video calls as needed. Beckie thanked STEPHEN.
--- NOTE | 2020-02-23 10:27 | NUR ---
The pt.s sister, Beckie Chu [phone] requesting copy of IDT packets. STEPHEN will mail copy of IDT packets from 08/19/2019 to present as soon as possible.
--- NOTE | 2020-02-23 11:40 | NUR ---
STEPHEN mailed IDT packets for the months of 01/2020 and 02/2020 to: Beckie Chu [[address] [address], [place] [address]; [phone]]. STEPHEN called Beckie [phone] and let her know that she can call Medical Records ext [phone] to request previous IDT packets. Beckie was agreeable to plan and transferred her to Medical Records.
[2020-02-24] MEDS ORDERED: OMEPRAZOLE 20 MG CAPSULE.DR GT SCH (06:00)
[2020-08-12] MEDS ORDERED: TUBERCULIN,PURIF.PROT.DERIV. 5 TU/0.1 ML VIAL ID SCH (09:00)
== END 2020-02-21 16:40 | disposition short-term general hospital (02) | DRG 207 ==
LOC: EDSEX → SA 18:17 → UNDOLOA 02-29 09:26
PROVIDERS: ADMIT Internal Medicine; ATTEND Internal Medicine
PROC: 5A1955Z Respiratory Ventilation, Greater than 96 Consecutive Hours (ICD-10-PCS; principal; 2019-09-20)
PROC: 30233N1 Transfusion of Nonautologous Red Blood Cells into Peripheral Vein, Percutaneous Approach (ICD-10-PCS; 2019-10-17)
PROC: 05HA33Z Insertion of Infusion Device into Left Brachial Vein, Percutaneous Approach (ICD-10-PCS; 2019-12-20)
PROC: 05H933Z Insertion of Infusion Device into Right Brachial Vein, Percutaneous Approach (ICD-10-PCS; 2020-01-22)
DX: J96.10 Chronic respiratory failure, unspecified whether with hypoxia or hypercapnia (principal); A41.9 Sepsis, unspecified organism; J18.9 Pneumonia, unspecified organism; N18.4 Chronic kidney disease, stage 4 (severe); G93.1 Anoxic brain damage, not elsewhere classified; I13.0 Hypertensive heart and chronic kidney disease with heart failure and stage 1 through stage 4 chronic kidney disease, or unspecified chronic kidney disease; N39.0 Urinary tract infection, site not specified; Z99.11 Dependence on respirator [ventilator] status; S37.012A Minor contusion of left kidney, initial encounter; Z16.12 Extended spectrum beta lactamase (ESBL) resistance; K56.7 Ileus, unspecified; E22.2 Syndrome of inappropriate secretion of antidiuretic hormone; R13.10 Dysphagia, unspecified; D63.8 Anemia in other chronic diseases classified elsewhere; E11.22 Type 2 diabetes mellitus with diabetic chronic kidney disease; D63.1 Anemia in chronic kidney disease; E78.5 Hyperlipidemia, unspecified; G40.909 Epilepsy, unspecified, not intractable, without status epilepticus; I25.10 Atherosclerotic heart disease of native coronary artery without angina pectoris; I50.9 Heart failure, unspecified; Z93.0 Tracheostomy status; Z93.1 Gastrostomy status; N20.0 Calculus of kidney; Z74.01 Bed confinement status; Z93.6 Other artificial openings of urinary tract status; X58.XXXA Exposure to other specified factors, initial encounter; Y92.9 Unspecified place or not applicable; M62.472 Contracture of muscle, left ankle and foot; M62.471 Contracture of muscle, right ankle and foot; L60.3 Nail dystrophy; E87.5 Hyperkalemia; E87.6 Hypokalemia; F09 Unspecified mental disorder due to known physiological condition; K21.9 Gastro-esophageal reflux disease without esophagitis; Z79.4 Long term (current) use of insulin; Z79.899 Other long term (current) drug therapy; Z79.51 Long term (current) use of inhaled steroids; R31.9 Hematuria, unspecified; E66.9 Obesity, unspecified; Z68.26 Body mass index [BMI] 26.0-26.9, adult; Y95 Nosocomial condition; Z74.09 Other reduced mobility; D50.9 Iron deficiency anemia, unspecified; T42.1X5A Adverse effect of iminostilbenes, initial encounter; Y92.89 Other specified places as the place of occurrence of the external cause
CPT/HCPCS: 31720; 36410; 36415; 71045-TC; 74018; 74250-TC; 76770-TC; 80048-TC; 80053-TC; 81000-TC; 82232; 82272-TC; 82542; 82550-TC; 82570-TC; 82728-TC; 82784; 82962-TC; 83540-TC; 83615-TC; 83735-TC; 83935-TC; 83970; 84100-TC; 84132-TC; 84155; 84155-TC; 84165; 84300-TC; 84443-TC; 84550-TC; 85025-TC; 85027-TC; 86334; 86850-TC; 86921-TC; 87040-TC; 87070-TC; 87086-TC; 87186-TC; 94003-TC; 94640-TC; 94760-TC; 94761-TC; 94762-TC; 94799-TC; 97110-TC; A4217; A4623; A6253; A7526; J0630; J0696; J0885; J1644; J1815; J1953; J2060; J2185; J2765; J7030; J7060; J8597; P9016-BL; Q0162; Q0164; Q9963; U0003-CS

== ENCOUNTER 2020-02-21 15:51 | Inpatient (IN) | payer MEDICARE, OTHER ==
[~2020-02-21] VITALS: Ht 170.2 cm; Wt 74.4 kg
[2020-02-21] VITALS (9 sets, daily range): BP systolic 102–113; BP diastolic 56–72
--- NOTE | 2020-02-21 15:50 | NUR ---
DOROTEO NOTES RECEIVED PATIENT, DIRECT ADMIT FROM SUB ACUTE. PATIENT COMING IN DUE TO ALTERED MENTAL STATUS. TRACH DEPENDENT: SHILEY 8 XLT. TOLERATING VENT SETTINGS FOLLOWS AC12, TV AT 500, FIO2AT 30%, PEEP OF 5. SATING FINE. AFEBRILE AT 97.8. ATTACHED TO THE MONITOR NOTED T SINUS RHYTHM WITH HR ON THE 70s. GT IN PLACE. ABDOMEN IS DISTENDED. NEPHROSTOMY TUBE ON THE LEFT FLANK, DRAINING TO CLOUDY YELLOW URINE. DAVIDSON CATHETER IN PLACE, DRAINING VIA GRAVITY TO YELLOW URINE. HOB ELEVATED. SAFETY MEASURES PUT IN PLACE, CALL LIGHT PLACE WITHIN REACH, WILL CONTINUE TO MONITOR PATIENT ACCORDINGLY >PATIENT SEEN AND EXAMINED BY DR. FLORES WITH ORDER MADE. ORDERS MADE AND CARRIED OUT > PATIENT BROUGHT TO RADIOLOGY DEPARTMENT VIA ACLS PROTOCOL ACCOMPANIED BY RT, MYSELF AND TECH.
[~2020-02-21 15:51] MED LIST changes: -AMIK250V8 IV; -CEFE2VIA3 IV; -LINE600T12 GT; -LORA-259 IVP
[2020-02-21 16:05] LABS: ABG BASE EXCESS 1.5 mmol/L; ABG OXYGEN SATURATION 95.4 % (92.0-98.5); ABG PCO2 41.4 mmHg (35.0-45.0); ABG PH 7.418 (7.350-7.450); ABG PO2 84.7 mmHg (75.0-100.0); AaDO2 80.6 mmHg; COHb 1.6 % (0.5-1.5); MetHb 0.1 % (0.0-1.5); O2Hb 93.8 % (94.0-97.0); PEEP,BG 5 cm H2O; SITE, ABG Left Radial; VT, ABG 500 mL
[2020-02-21] MEDS ORDERED: NUT.237L67 GT (16:37)
[2020-02-21] MEDS ORDERED: SACC250C GT (16:37)
[2020-02-21] MEDS ORDERED: ONDANSETRON HCL/PF 4 MG/2 ML VIAL IVP PRN (17:30)
[2020-02-21] MEDS ORDERED: INSULIN REGULAR, HUMAN 100 UNIT/ML 3 ML VIAL SQ PRN (17:30)
[2020-02-21] MEDS ORDERED: NEPRO VAN 237 ML CAN GT SCH (17:30)
[2020-02-21] MEDS ORDERED: BISACODYL SUPP (10 MG) 10 MG/SUPP.RECT SUPP.RECT RC PRN (17:30)
[2020-02-21] MEDS ORDERED: MAGNESIUM HYDROXIDE 30 ML UDC PO PRN (17:30)
[2020-02-21] MEDS ORDERED: ACETAMINOPHEN 325 MG TABLET PO PRN (17:30)
[2020-02-21] MEDS ORDERED: MAG HYDROX/AL HYDROX/SIMETH 30 ML UDC PO PRN (17:30)
[2020-02-21] MEDS ORDERED: DEXTROSE 50%-WATER 50 ML DISP.SYRIN IV PRN (17:30)
[2020-02-21] MEDS ORDERED: LORAZEPAM 1 MG TABLET GT PRN (17:30)
[2020-02-21] MEDS: METOCLOPRAMIDE HCL 10 MG/10 ML UDC GT SCH (18:00)
[2020-02-21] MEDS ORDERED: CEFTRIAXONE 1 G in IV D5W 50 ML IV SCH (18:00)
[2020-02-21] MEDS: IV NS 0.9% 1,000 ML IV PRN (18:15)
[2020-02-21] MEDS ORDERED: GABA300C GT (18:19)
[2020-02-21] MEDS ORDERED: ACID1TAB12 GT (18:19)
[2020-02-21] MEDS ORDERED: EPOE4000 IJ (18:19)
--- NOTE | 2020-02-21 18:30 | NUR ---
RN NOTES OBTAINED CONSENT FOR PICC LINE INSERTION FROM KELVIN (SISTER) CONSENT VERIFIED BY ARPI,RN
[2020-02-21] MEDS: BLOOD SUGAR DIAGNOSTIC 1 EACH STRIP IN SCH ×2 (18:45→22:54)
--- NOTE | 2020-02-21 19:15 | NUR ---
ICU/RN RECEIVED PATIENT FROM MORNING SHIFT NURSE. PATIENT CURRENTLY NOT SHOWING ANY SIGNS OF DISTRESS. PATIENT CURRENTLY SINUS RHYTHM WITH HR AT 70. TOLERATING VENT SETTINGS ORDERED WITH SATURATING AT 96% WITH NO RESPIRATORY DISTRESS. PATIENT HAS GTUBE WITH LIS WITH YELLOW THICK SECRETION NOTICES. NEPHROSTOMY IS ATTACHED AT LT SIDE WITH MINIMAL LIGHT RED OUTPUT. FC IS IN PLACE PATENT WITH YELLOW OUTPUT. PICC LINE IS IN PLACE AT LT FEMORAL WITH NS INFUSING AT 100CC/HR. PATIENT IS BEING MONITORED CLOSELY. ALL SAFETY PRECAUTIONS APPLIED.
--- NOTE | 2020-02-21 19:45 | NUR ---
TEMP WAS NOT ABLE TO OBTAIN ON EITHER AXILIARY SIDE. RECTAL TEMP FOR CONTINUOS MONITORING WAS PLACED. TEMP CURRENTLY AT 94.1. BEAR HUGGER WAS APPLIED. LINEN WAS CHANGED AND PATIENT WAS CLEANED.
[2020-02-21] MEDS: ALBUTEROL FS 2.5 MG/3 ML VIAL.NEB IH SCH (19:46)
[2020-02-21] MEDS ORDERED: VITAMINS A AND D 56.7 GM TUBE TP SCH (21:00)
[2020-02-21] MEDS ORDERED: FERROUS SULFATE UDC 300 MG/5 ML UDC GT SCH (21:00)
--- NOTE | 2020-02-21 21:30 | NUR ---
ALL MEDS GIVEN AND PATIENT WAS REPOSITIONED
[2020-02-21] MEDS: MEROPENEM 500 MG in IV NS 0.9% 50 ML IV SCH (21:39)
[2020-02-21] MEDS: SIMETHICONE 80 MG TAB.CHEW GT SCH (21:40)
[2020-02-21] MEDS: OXCARBAZEPINE 150 MG TABLET GT SCH (21:40)
[2020-02-21] MEDS: SENNOSIDES 8.6 MG TABLET GT SCH (21:40)
[2020-02-21] MEDS: LEVETIRACETAM SOL (5 ML) 100 MG/ML UDC GT SCH (21:40)
[2020-02-21] MEDS: GABAPENTIN 300 MG CAPSULE GT SCH (21:40)
[2020-02-21] MEDS: Z GUARD REMEDY 2 OZ OINT TP PRN (21:41)
[2020-02-21] MEDS: Z GUARD REMEDY 2 OZ OINT TP SCH (21:42)
[2020-02-21] MEDS: EPOETIN ALFA (4000 UNIT) 4,000 UNIT/ML VIAL SQ SCH (21:43)
[2020-02-21] MEDS: ASCORBIC ACID 500 MG TABLET GT SCH (21:43)
[2020-02-21] MEDS: INSULIN GLARGINE, 100 UNIT/ML CARTRIDGE SQ SCH (22:00)
[2020-02-22] VITALS (44 sets, daily range): BP systolic 80–115; BP diastolic 40–62
[2020-02-22] MEDS: METOCLOPRAMIDE HCL 10 MG/10 ML UDC GT SCH ×5 (00:30→23:47)
[2020-02-22] MEDS: ALBUTEROL FS 2.5 MG/3 ML VIAL.NEB IH SCH ×4 (01:11→19:45)
[2020-02-22 02:41] LABS: APPEARANCE,URINE CLOUDY (CLEAR); BILIRUBIN,URINE NEGATIVE (NEGATIVE); BLOOD, URINE MODERATE Ery/uL (NEGATIVE); COLOR,URINE YELLOW (YELLOW); KETONES,URINE NEGATIVE (NEGATIVE); LEUKOCYTE ESTERASE ,URINE LARGE (NEGATIVE); NITRITE, URINE NEGATIVE (NEGATIVE); PROTEIN,URINE >=300 mg/dl (NEGATIVE); UGLUCOSE NEGATIVE (NEGATIVE); UROBILINOGEN,URINE 0.2 EU/dL (0.2)
[2020-02-22 03:11] LABS: BACTERIA,URINE Moderate /HPF (None Seen); SQUAMOUS EPITHELIAL CELL,UR Moderate /HPF (None Seen); WBC,URINE TOO NUMEROUS TO COUN /HPF (0-3)
[2020-02-22 04:27] LABS: THYROID STIMULATING HORMONE 0.752 uIU/mL (0.358-3.74)
[2020-02-22 04:35] LABS: CALCIUM, SERUM 9.3 mg/dL (8.5-10.1); CREATININE 6.5 mg/dL (0.6-1.3); PHOSPHORUS 6.7 mg/dL (2.5-4.9); POTASSIUM 3.4 mmol/L (3.5-5.1)
[2020-02-22 04:43] LABS: MAGNESIUM 5.6 mg/dL (1.8-2.4)
[2020-02-22 04:52] LABS: BASOPHILS % (AUTO) 0.2 % (0.0-2.0); EOSINOPHILS % (AUTO) 0.8 % (0.0-6.0); LYMPHOCYTES # (AUTO) 0.6 /CMM (0.8-4.8); MEAN CORPUSCULAR HGB CONC 33 g/dl (31.0-36.0); MEAN CORPUSCULAR VOLUME 100 fL (82-100); MONOCYTES # (AUTO) 1.1 /CMM (0.1-1.30); MONOCYTES % (AUTO) 5.3 % (2.0-12.0); NEUTROPHILS # (AUTO) 18.1 /CMM (1.8-8.9); NEUTROPHILS % (AUTO) 90.7 % (43.0-81.0); PLATELET COUNT (AUTO) 330 /CMM (150-450); RED BLOOD CELL COUNT(AUTO) 2.03 MIL/uL (4.0-5.2)
[2020-02-22 04:56] LABS: HEMATOCRIT 20 % (33-45)
[2020-02-22] MEDS: PANTOPRAZOLE 40 MG/PACK PACK GT SCH (05:10)
[2020-02-22] MEDS: GABAPENTIN 300 MG CAPSULE GT SCH ×3 (05:10→21:47)
[2020-02-22 05:11] LABS: HEMOGLOBIN 6.6 g/dL (11.5-14.8)
[2020-02-22 05:14] LABS: BAND % (MANUAL) 15 % (0.0-5.0); LYMPHOCYTES % (MANUAL) 2 % (16-48); NEUTROPHILS % (MANUAL) 77 (42-76)
[2020-02-22 05:15] LABS: MONOCYTES % (MANUAL) 6 % (0-11.0)
[2020-02-22] MEDS: IV NS 0.9% 1,000 ML IV PRN ×2 (05:28→18:11)
--- NOTE | 2020-02-22 06:33 | NUR ---
CRITICAL LABS REPORTED TO DELIVERY OF [employer]OPPING NEWS. DUKE ADAM GAVE ORDERS TO TRANSFUSE 1 UNIT OF PRBC. NO OTHER ORDERS GIVEN. WILL CONTINUE TO MONITOR.
[2020-02-22] MEDS: BLOOD SUGAR DIAGNOSTIC 1 EACH STRIP IN SCH ×4 (07:30→23:47)
--- NOTE | 2020-02-22 07:45 | NUR ---
RN OPENING NOTE: RECEIVED PATIENT IN BED THIS MORNING. PATIENT HAS TRACH, OBTUNDED, OPENS EYES TO VOICE, TOLERATING VENT SETTINGS WELL. NO SIGNS OF ACUTE DISTRESS NOTED AT THIS TIME. SR IN THE 70S NOTED ON BEDSIDE MONITOR. NPO, GT ON LOW INTERMITTENT SUCTION. NEPHROSTOMY IN PLACED, SEROUSANGUINOUS DRAINAGE, PER HORTICULTURAL SERVICES SUPERVISOR RN, MD AWARE. FC DRAINING SEDIMENTED YELLOW URINE. LOOSE BM NOTED. WOUND CARE PER ORDERS. PICC LINE C/D/I, FLUSHING WELL, NO SIGNS OF COMPLICATIONS NOTED. SAFETY MEASURES IMPLEMENTED, BED IN LOWEST POSITION, LOCKED, SIDE RAILS UP, CALL LIGHT WITHIN REACH. WILL CONTINUE TO MONITOR PATIENT FOR CHANGES.
--- NOTE | 2020-02-22 08:29 | NUR ---
WOUND CARE CONSULT: PT PRESENTS WITH SACRAL SCARRING WHICH EXTENDS TO BUTTOCKS WELL INCONTINENCE ASSOCIATED SKIN DAMAGE OVER PREVIOUS SCARRING AND RASH WITH INCONTINENCE ASSOCIATED OPEN SKIN TO RT BUTTOCK, ALL PRESENT ON ADMISSION. RECOMMENDATIONS MADE FOR SKIN CARE AND PROTECTION. DISCUSSED WITH NURSING STAFF. PT NOTED TO BE INCONTINENT OF LOOSE STOOL. DAVIDSON CATH NOTED. NEPHROSTOMY TUBE NOTED. PT IS ON FIRST STEP [facility]. WILL SEE PRN. TAYLOR IN AGREEMENT WITH PLAN OF CARE. Addendum: 02/22/20 at 0831 by BRI MICHAUD WNDNU Amended: Links added.
[2020-02-22] MEDS: MULTIVIT W/MINERALS 1 TAB TABLET GT SCH (08:36)
[2020-02-22] MEDS: LEVETIRACETAM SOL (5 ML) 100 MG/ML UDC GT SCH ×2 (08:36→21:47)
[2020-02-22] MEDS: OXCARBAZEPINE 150 MG TABLET GT SCH ×2 (08:36→21:47)
[2020-02-22] MEDS: SIMETHICONE 80 MG TAB.CHEW GT SCH ×2 (08:37→21:47)
[2020-02-22] MEDS: DOCUSATE SODIUM LIQ 100 MG/10 ML UDC GT SCH (08:37)
[2020-02-22] MEDS: ACIDOPHILUS/BULGARICUS 1 EACH TAB.CHEW GT SCH ×2 (08:37→16:50)
[2020-02-22] MEDS: SENNOSIDES 8.6 MG TABLET GT SCH ×2 (08:37→21:47)
[2020-02-22] MEDS: Z GUARD REMEDY 2 OZ OINT TP SCH ×2 (08:37→21:48)
[2020-02-22] MEDS: MEROPENEM 500 MG in IV NS 0.9% 50 ML IV SCH ×2 (08:40→21:40)
[2020-02-22 08:44] LABS: ABG OXYGEN SATURATION 95.7 % (92.0-98.5); ABG PCO2 38.5 mmHg (35.0-45.0); ABG PH 7.373 (7.350-7.450); ABG PO2 90.2 mmHg (75.0-100.0); AaDO2 78.5 mmHg; COHb 1.7 % (0.5-1.5); MetHb 0.2 % (0.0-1.5); O2Hb 93.9 % (94.0-97.0); PEEP,BG 5 cm H2O; SITE, ABG Right Radial; VT, ABG 500 mL
[2020-02-22] MEDS ORDERED: ACIDOPHILUS/BULGARICUS 1 EACH TAB.CHEW GT SCH (09:00)
--- NOTE | 2020-02-22 10:00 | NUR ---
DR BRITTON AWARE PATIENT IS GETTING TRANSFUSED
--- NOTE | 2020-02-22 10:29 | NUR ---
CONTACTED DR TOURE IN REGARDS TO WHETHER OR NOT PATIENT IS GOING TO GET DIALYZED. IF PATIENT ISNT TODAY, PHARMACY WANTS TO REPLACE POTASSIUM. AWAITING RESPONSE.
[2020-02-22] MEDS: CLOTRIMAZOLE 1% 15 GM TUBE TP SCH ×2 (10:56→16:56)
[2020-02-22] MEDS ORDERED: IV NS 0.9% 1,000 ML IV ONE (11:00)
--- NOTE | 2020-02-22 11:00 | NUR ---
BLOOD TRANSFUSION CONSENT SIGNED BY DR BRITTON
--- NOTE | 2020-02-22 11:51 | NUR ---
BLOOD TRANSFUSION ONGOING. NO SIGNS OF COMPLICATIONS NOTED AT THIS TIME. WILL CONTINUE TO MONITOR PATIENT.
--- NOTE | 2020-02-22 12:00 | NUR ---
DR BRITTON AWARE OF PATIENT'S NEPHROSTOMY TUBE IS DRAINING SEROUSANGUINOUS FLUID.
--- NOTE | 2020-02-22 13:06 | NUR ---
STAT KUB ORDERED
--- NOTE | 2020-02-22 14:54 | NUR ---
BLOOD TRANSFUSION COMPLETE, NO SIGNS OF COMPLICATIONS NOTED AT THIS TIME.
--- NOTE | 2020-02-22 17:00 | NUR ---
DR TOURE ORDERED DIALYSIS FOR PATIENT. AWAITING ACCESS PORT.
--- NOTE | 2020-02-22 18:24 | NUR ---
RN CLOSING NOTE: PATIENT REMAINS IN BED. NO SIGNS OF ACUTE DISTRESS NOTED AT THIS TIME. SSR IN THE 60S ON THE MONITOR. SAFETY MEASURES IMPLEMENTED, BED IN LOWEST POSITION, LOCKED, SIDE RAILS UP, CALL LIGHT WITHIN REACH. WILL ENDORSE TO ONCOMING SHIFT RN FOR CONTINUITY OF CARE.
--- NOTE | 2020-02-22 19:10 | NUR ---
PATIENT DID NOT GET DIALYZED TODAY. PER CN, WILL MOST LIKELY GET ACCESS FOR DIALYSIS TOMORROW.
--- NOTE | 2020-02-22 19:45 | NUR ---
ICU/CERTIFIED ALCOHOL COUNSELOR RECEIVED REPORT FROM DAY NURSE. SEE FLOWSHEET FOR ASSESSMENT, ALONG WITH SKIN ISSUES WHICH ARE ADDRESSED AND THE INTERVENTIONS TO EACH. PT IS OBTUNDED BUT OPENS EYES SPONTANEOUSLY WITH NO TRACKING. PT IS ON VENTILATOR, TOLERATING CURRENT SETTINGS WITH SATURATION IS 99%. PT WAS TURNED AND REPOSITIONED FOR COMFORT AND CARE. WILL CONTINUE TO MONITOR THIS PT, NO ACUTE DISTRESS SEEN.
--- NOTE | 2020-02-22 20:30 | NUR ---
ICU/ENGINEERING VICE PRESIDENT PT IS A TUBE FEEDING WITH A ACHS SLIDING SCALE, THE ACHS SLIDING SCALE WAS CHANGED OVER TO THE TUBE FEEDING SCALE.
[2020-02-22] MEDS ORDERED: DEXTROSE 50%-WATER 50 ML DISP.SYRIN IV PRN (21:00)
--- NOTE | 2020-02-22 21:25 | NUR ---
RT NOTE PT RECEIVED TRACHED ON MECHANICAL VENTILATION. CUFF CHECKED VIA CLINICAL FIELD SPECIALIST. SHILEY [address] HHN TX GIVEN, NO ADVERSE REACTIONS NOTED. SX DONE, TRACH SECURED AND PATENT. LARGE THICK YELLOW SECRETIONS NOTED. VENT PLUGGED TO RED OUTLET. ALARMS ON AND AUDIBLE. NO DISTRESS NOTED. WILL CONTINUE TO MONITOR. Addendum: 02/22/20 at 2126 by BRIEN NEAL RT Amended: Links added.
[2020-02-22] MEDS: ASCORBIC ACID 500 MG TABLET GT SCH (21:47)
[2020-02-22] MEDS: INSULIN GLARGINE, 100 UNIT/ML CARTRIDGE SQ SCH (21:51)
--- NOTE | 2020-02-22 21:52 | NUR ---
ICU/AEROBICS TEACHER PT'S BLOOD SUGAR IS 109, PT IS CURRENTLY NPO WITH IVF OF NS NO DEXTROSE. PT HAS A MIDNIGHT BLOOD SUGAR CHECK, WHICH WILL RECHECK SUGAR AGAIN.
--- NOTE | 2020-02-22 22:30 | NUR ---
ICU/OFFICE TECHNOLOGY PROFESSOR PT WAS GIVEN ORAL CARE AT THIS TIME, THEN WAS PROVIDED PM CARE. PT TOLERATED THIS WELL. PT REMAINS ON VENT SETTINGS WITH SATURATION AT 100%. PT WAS THEN TURNED AND REPOSITIONED FOR COMFORT AND CARE. NO ACUTE DISTRESS SEEN AT THIS TIME. WILL CONTINUE TO MONITOR THIS PT.
--- NOTE | 2020-02-22 23:30 | NUR ---
ICU/MANAGER WINTER PT'S BLOOD PRESSURE HAS BEEN IN THE 80'S, CALLED THE GOLF COURSE LABORER JAIR FOR ORDERS. WAS GIVEN ORDER FOR 500ML BOLUS AND ALSO STAND BYE LEVO DOUBLE CONCENTRATION WITH MAP OF 60L. CHARGE NURSE MADE AWARE OF THIS.
[2020-02-22] MEDS ORDERED: IV NS 0.9% 500 ML IV STA (23:32)
[2020-02-23] VITALS (64 sets, daily range): BP systolic 92–154; BP diastolic 44–75
[2020-02-23] MEDS ORDERED: NOREPINEPHRINE 32 MG in IV NS 0.9% 218 ML IV PRN ×2
--- NOTE | 2020-02-23 00:10 | NUR ---
ICU/DIRECTOR OF FIELD SERVICE MIDNIGHT BLOOD SUGAR IS 125, THERE IS NO COVERAGE FOR THIS PER MD ORDERS. WILL CONTINUE TO MONITOR THIS PER MD ORDERS AND HOSPITAL PROTOCOL. NEXT BLOOD SUGAR IS AT 0600.
--- NOTE | 2020-02-23 00:35 | NUR ---
ICU/CAR PRE COOLER PT WAS THEN TURNED AND REPOSITIONED FOR COMFORT AND CARE. NO ACUTE DISTRESS SEEN AT THIS TIME. WILL CONTINUE TO MONITOR THIS PT.
[2020-02-23] MEDS: ALBUTEROL FS 2.5 MG/3 ML VIAL.NEB IH SCH ×4 (01:19→19:54)
--- NOTE | 2020-02-23 01:28 | NUR ---
ICU/WELDER/INSTALLER PT HAD POSITIVE RESULTS WITH THE NS BOLUS, PT'S BP IS 100'S.
--- NOTE | 2020-02-23 03:00 | NUR ---
ICU/SENIOR PHP WEB DEVELOPER PT WAS GIVEN ORAL CARE AT THIS TIME, THEN WAS PROVIDED AM CARE. PT TOLERATED THIS WELL. PT REMAINS ON VENT SETTINGS WITH SATURATION AT 100%. PT WAS THEN TURNED AND REPOSITIONED FOR COMFORT AND CARE. NO ACUTE DISTRESS SEEN AT THIS TIME. WILL CONTINUE TO MONITOR THIS PT.
--- NOTE | 2020-02-23 04:30 | NUR ---
ICU/HEEL NAIL RASPER AM LABS WERE DONE AWAIT FOR ANY ABNORMAL RESULTS
[2020-02-23 04:35] LABS: BASOPHILS % (AUTO) 0.3 % (0.0-2.0); EOSINOPHILS % (AUTO) 1.1 % (0.0-6.0); LYMPHOCYTES % (AUTO) 6.4 % (20.0-44.0); MEAN CORPUSCULAR HGB CONC 33 g/dl (31.0-36.0); MEAN CORPUSCULAR VOLUME 100 fL (80-96); MONOCYTES % (AUTO) 6.5 % (2.0-12.0); NEUTROPHILS # (AUTO) 13.1 /CMM (1.8-8.9); NEUTROPHILS % (AUTO) 85.7 % (43.0-81.0); PLATELET COUNT (AUTO) 238 /CMM (150-450); WHITE BLOOD COUNT (AUTO) 15.3 K/uL (4.3-11.0)
[2020-02-23 04:40] LABS: CALCIUM, SERUM 7.8 mg/dL (8.5-10.1); CREATININE 5.9 mg/dL (0.6-1.3); PHOSPHORUS 6.1 mg/dL (2.5-4.9); POTASSIUM 3.4 mmol/L (3.5-5.1)
[2020-02-23 04:42] LABS: MAGNESIUM 5.1 mg/dL (1.8-2.4)
[2020-02-23] MEDS: GABAPENTIN 300 MG CAPSULE GT SCH ×3 (05:25→21:52)
[2020-02-23 05:26] LABS: RED BLOOD CELL COUNT(AUTO) 1.85 MIL/uL (4.5-6.0)
[2020-02-23] MEDS: METOCLOPRAMIDE HCL 10 MG/10 ML UDC GT SCH ×3 (05:26→17:15)
[2020-02-23] MEDS: PANTOPRAZOLE 40 MG/PACK PACK GT SCH (05:26)
[2020-02-23] MEDS: IV NS 0.9% 1,000 ML IV PRN ×2 (05:26→15:57)
[2020-02-23] MEDS: BLOOD SUGAR DIAGNOSTIC 1 EACH STRIP IN SCH ×3 (05:26→16:24)
[2020-02-23 05:27] LABS: HEMOGLOBIN 6.1 g/dL (13.5-17.5)
[2020-02-23 05:28] LABS: HEMATOCRIT 19 % (39-51)
[2020-02-23 05:31] LABS: LYMPHOCYTES % (MANUAL) 5 % (16-48); MONOCYTES % (MANUAL) 5 % (0-11.0); NEUTROPHILS % (MANUAL) 90 (42-76)
--- NOTE | 2020-02-23 05:59 | NUR ---
ICU/DOCK WORKER CRITICAL RESULTS FOR MAGNESIUM 5.1, H&H 6.1 CALL PLACED TO PHONE ENGINEER JAIR FOR ANY ORDERS. SHE CALLED BACK SAID NO, BUT PT NEEDS HD CATH. CHARGE NURSE AWARE.
--- NOTE | 2020-02-23 06:38 | NUR ---
ICU/TERMINAL MANAGER DR GIRALDO CALLED TO ASK IF CONSENT WAS GAINED FOR HD CATH, HOWEVER THERE WAS NO NOTES ABOUT OBTAINING ONE, BUT WILL CALL SISTER TO GET THIS. ALSO SAID THE LIST OF SUPPLIES HE NEEDS. [phone], DENNIS MCGHEE WAS CALLED AND GAVE CONSENT FOR THE HD CATH, COSIGNER WAS CHARGE NURSE MANA [place]ON. SUPPLIES ARE AT BEDSIDE.
--- NOTE | 2020-02-23 07:30 | NUR ---
ICU /RN RECEIVED PATIENT NONVERBAL, TRACHEA/VENT DEPENDENT,SR, NO ACUTE RESPIRATORY DISTRESS, PATIENT FOLLOW SIMPLE COMMANDS, DISTENDED ABDOMEN, DAVIDSON CATHETER DRAINING YELLOW OUTPUT WITH SEDIMENT, NEPHROSTOMY TUBE HAS NO OUTPUT AT THIS TIME, PICC LINE ON LEFT UPPER THIGH INFUSING NS AT 100 ML/HR. PATIENT TOTAL CARE, INTERMITTENT SUCTIONING GT, ADMINISTERED SCHEDULED MEDICATION, AND HELD LAXATIVES BECAUSE OF PATIENT HAS DIARRHEA. ORAL CARE AND SUCTIONING DONE, ASSIST TURN AND REPOSTION Q 2 HR, V/S STABLE, NO PAIN, KEEP HOB ELEVATED FOR ASPIRATION PRECAUTION. DVT PUMP OP. WILL CONTINUE MONITORING.
--- NOTE | 2020-02-23 07:52 | NUR ---
ICU/HOSPITALIST NOCTURNIST PHYSICIAN DR GIRALDO AT BEDSIDE PLACED HD CATH TO LEFT CHEST WALL, WITHOUT INCIDENT. STAT CHEST XRAY DONE FOR PLACEMENT. REPOST GIVEN TO DAY NURSE ABOUT THIS, TO FOLLOW UP ON XARY PLACEMENT.
[2020-02-23] MEDS: DOCUSATE SODIUM LIQ 100 MG/10 ML UDC GT SCH (08:17)
[2020-02-23] MEDS: SENNOSIDES 8.6 MG TABLET GT SCH ×2 (08:18→21:52)
[2020-02-23] MEDS: ACIDOPHILUS/BULGARICUS 1 EACH TAB.CHEW GT SCH ×2 (08:18→16:26)
[2020-02-23] MEDS: SIMETHICONE 80 MG TAB.CHEW GT SCH ×2 (08:18→21:52)
[2020-02-23] MEDS: OXCARBAZEPINE 150 MG TABLET GT SCH ×2 (08:24→21:52)
[2020-02-23] MEDS: LEVETIRACETAM SOL (5 ML) 100 MG/ML UDC GT SCH ×2 (08:24→21:52)
[2020-02-23] MEDS: MULTIVIT W/MINERALS 1 TAB TABLET GT SCH (08:24)
[2020-02-23] MEDS: MEROPENEM 500 MG in IV NS 0.9% 50 ML IV SCH ×2 (08:26→21:52)
[2020-02-23] MEDS: Z GUARD REMEDY 2 OZ OINT TP SCH ×2 (08:28→21:54)
[2020-02-23] MEDS: CLOTRIMAZOLE 1% 15 GM TUBE TP SCH ×2 (08:28→16:25)
--- NOTE | 2020-02-23 09:53 | NUR ---
CAR RUNNER SEEN PATIENT BY LEAD SCIENTIST PATIENT GET NEW ORDERS HEMODIALYSIS TODAY, AND ONE UNIT OF BLOOD TRANSFUSION. HEMODIALYSIS CONSENT FORM GET TO FROM SISTER NAME MCGHEE, CO-SIGNED WITH CO-WORKER CAR RUNNER NAME ZEINA.
[2020-02-23] MEDS ORDERED: ALBUMIN 25% 25 GM in PREMIX 1 EA IV PRN (11:00)
--- NOTE | 2020-02-23 11:00 | NUR ---
PROJECT MANAGEMENT PROFESSOR PATIENT GETTING HEMODIALYSIS AT THIS TIME. PENTACATH ON LEFT UPPER CHEST INTACT.
--- NOTE | 2020-02-23 12:35 | NUR ---
AGRICULTURAL EQUIPMENT DESIGN ENGINEER ONE UNIT OF BLOOD GIVEN WITH HEMODIALYSIS AT THIS TIME. PATIENT HAS NO BLODD TRANSFUSION REACTION AT THIS TIME. V/S TAKEN BP 151/70, P-88, R-22, T-98.5 RECTAL O2-100, TRACHEA /VENT DEPENDENT. GTF NOT STARTED BECAUSE OF ABDOMINAL DISTENTION, KEEP HOB ELEVATED, MEDICATION ADMINISTERED VIA GT, KEEP HOB ELEVATED, SUCTIONED AND ORAL CARE DONE, CARE PROVIDED, ASSIST TURN AND REPOSTION Q 2 HR.
--- NOTE | 2020-02-23 13:02 | NUR ---
ORACLE FINANCIALS DEVELOPERDIRECTOR PROJECT MANAGEMENT FINISHED AT THIS TIME, NO OUTPUT, ONLY CLEANING.
[2020-02-23 16:14] LABS: IRON, SERUM 54 ug/dl (50-175); TOTAL IRON BINDING CAPACITY 94 ug/dl (250-450)
--- NOTE | 2020-02-23 17:42 | NUR ---
TECHNICAL EDUCATION TEACHER NOTIFIED LEFT UPPER CHEST HEMODIALYSIS CATH INSERTION SIDE SUBCUTANEOUS EMPHYSEMA AROUND NECK. NOTIFIED HOSPITALIST Dr BERNABE, AND GET TO ORDER CHEST X-RAY, ORDER TAKEN AND CARRIED OUT.
--- NOTE | 2020-02-23 17:54 | NUR ---
TEST BORE HELPER X-RAY OF CHEST DONE WAITING FOR RESULT.
--- NOTE | 2020-02-23 18:34 | NUR ---
RN NOTES GET left subclavian hemodialysis catheter with the catheter tip terminating over the right atrium. No pneumothorax. 2. New diffuse ground-glass changes in the right lung, possible pulmonary edema. 3. New area of airspace disease left lung base, likely atelectasis. Patient stable, pm care provided, due medication administered held Reglan GT because of diarrhea, BS-76 no coverage given, nephrostomy tube draining 75 ml of output, irrigated Bourgeois cath, output was 360 ml with sediments, suction, and oral care provided. Keep hob elevated, intermittent GT suction on, assist turn and reposition q 2 hr. will continued plan of care.
--- NOTE | 2020-02-23 19:50 | NUR ---
RN NOTES RECEIVED PATIENT EYES OPEN SOMEWHAT TRACKING, NON VERBAL , NOT FOLLOWING COMMAND. WITH TRACH SHILEY 8 XLT CONNECTED TO VENT SETTING AC 12 TV 500 FIO2 30% PEEP 5 TOLERATED WELL SATURATION 100%. SR ON TELE MONITOR. WITH GT CONNECTED TO LIS WITH SMALL WHITE SECRETION OUTPUT. NEPHROSTOMY DRAINAGE BAG PRESENT AND DAVIDSON CATH WITH JULI COLOR URINE KEPT OFF FROM THE FLOOR. IV SITE ON LEFT FEMORAL INTACT AND PATENT RUNNING WITH NS @ 100 ML/HR. LEFT CHEST WALL HD CATH COVERED WITH DRESSING WITH SMALL STAIN OF BLOOD. PT HAD S/P I UNIT PRBC FROM PREVIOUS SHIFT. DUE TO HGB 6.1 AND DIALYSIS TOLERATED WELL. NO ACTIVE BLEEDING NOTED. KEPT PT CLEAN AND DRY. TURN AND REPOSITION Q2H AND PRN PT COMFORTABLE.
--- NOTE | 2020-02-23 19:57 | NUR ---
RT NOTE Pt rec'd trached on [facility] vent on AC mode. Pt shows no signs of resp distress or sob. Trach is patent and secured. Sx'd for thick mod amt of yellow secretions. Alarms are set and audible. Ambu bag bag and emergency spare trach is bedside. Vent plugged into red outlet. Will continue to monitor closely Addendum: 02/23/20 at 1999 by LADAN WICK RT Amended: Links added.
[2020-02-23] MEDS: ASCORBIC ACID 500 MG TABLET GT SCH (21:52)
[2020-02-23] MEDS: INSULIN GLARGINE, 100 UNIT/ML CARTRIDGE SQ SCH (22:00)
[2020-02-24] VITALS (24 sets, daily range): BP systolic 110–160; BP diastolic 51–84
[2020-02-24] MEDS: METOCLOPRAMIDE HCL 10 MG/10 ML UDC GT SCH ×6 (00:21→17:56)
[2020-02-24] MEDS: BLOOD SUGAR DIAGNOSTIC 1 EACH STRIP IN SCH ×4 (00:23→17:34)
[2020-02-24] MEDS: IV NS 0.9% 1,000 ML IV PRN ×2 (01:33→12:18)
[2020-02-24] MEDS: ALBUTEROL FS 2.5 MG/3 ML VIAL.NEB IH SCH ×4 (01:59→19:59)
[2020-02-24 04:51] LABS: BASOPHILS % (AUTO) 0.2 % (0.0-2.0); EOSINOPHILS % (AUTO) 1.4 % (0.0-6.0); HEMATOCRIT 21 % (33-45); LYMPHOCYTES # (AUTO) 1.2 /CMM (0.8-4.8); MEAN CORPUSCULAR HGB CONC 33 g/dl (31.0-36.0); MEAN CORPUSCULAR VOLUME 95 fL (82-100); MONOCYTES % (AUTO) 7.1 % (2.0-12.0); NEUTROPHILS # (AUTO) 11.4 /CMM (1.8-8.9); NEUTROPHILS % (AUTO) 82.3 % (43.0-81.0); PLATELET COUNT (AUTO) 241 /CMM (150-450); RED BLOOD CELL COUNT(AUTO) 2.22 MIL/uL (4.0-5.2); WHITE BLOOD COUNT (AUTO) 13.9 K/uL (4.3-11.0)
[2020-02-24 05:10] LABS: CALCIUM, SERUM 7.9 mg/dL (8.5-10.1); CREATININE 3.7 mg/dL (0.6-1.3); MAGNESIUM 3.6 mg/dL (1.8-2.4); PHOSPHORUS 3.8 mg/dL (2.5-4.9)
--- NOTE | 2020-02-24 06:00 | NUR ---
RN NOTES 0535 AM - RECEIVED CRITICAL HGB RESULT FROM LAB, CALLED AND INFORMED REINFORCING STEEL WORKER WIRE MESH JAIR [place], REGARDING PATIENT HGB 7.0 AND HCT 21 NNO AT THIS TIME
[2020-02-24] MEDS: PANTOPRAZOLE 40 MG/PACK PACK GT SCH (06:21)
[2020-02-24] MEDS: GABAPENTIN 300 MG CAPSULE GT SCH ×4 (06:21→21:00)
--- NOTE | 2020-02-24 07:12 | NUR ---
RN NOTES PATIENT REMAINED THE SAME, NO SIGNIFICANT WHIT. NO CHANGE FROM TRACH AND VENT SETTING, TOLERATED WELL. SR ON TELE MONITOR. AFEBRILE. VSS WITHOUT PRESSORS. INCONTINENT CARE RENDERED. ABDOMINAL DISTENTION CONTINEU TO MONITOR. GT CONTINUE ON LIS. PICC LINE AND INTACT AND PATENT WITH IVF ORDERED. HD CATH CLEAN AND DRY. ENDORSED CONTINUITY OF CARE TO AM NURSE.
--- NOTE | 2020-02-24 07:30 | NUR ---
AUTOMATIC OUTSOLE CUTTER NOTES RECEIVED PATIENT IN BED, ASLEEP. RESPONSIVE TO VERBAL AND TACTILE STIMULI. NOTED PATIENT WITH EYE TRACKING. HOB ELEVATED. NO S/S OF RESPIRATORY DISTRESS. APRIL MECHANICAL VENTILATION WELL ORDERED. SHILEY #8 XLT INTACT. SUCTIONED AND OBTAINED THIN-THICK WHITE YELLOW SECRETIONS. LEFT SUBCLAVIAN HD ACCESS WITH DRESSING INTACT. LEFT FEMORAL PICC LINE, TRIPLE LUMEN INTACT AND PATENT INFUSING NS @ 100ML/HR APRIL WELL. REMAIN ON CONTINUOUS LIS WITH YELLOWISH GREEN FLUID IN COLOR OBSERVED. BED IN LOWEST POSITION, LOCKED. BED ALARM ON.
--- NOTE | 2020-02-24 08:08 | NUR ---
COPPERSMITH HELPER NOTES PATIENT CURRENTLY RECEIVING HD TX.
--- NOTE | 2020-02-24 08:09 | NUR ---
TELEPHONE SERVICES SALES REPRESENTATIVE NOTES RELAYED TO DR. TOURE POTASSIUM LEVEL OF 3.0.
[2020-02-24] MEDS: DOCUSATE SODIUM LIQ 100 MG/10 ML UDC GT SCH (10:23)
[2020-02-24] MEDS: LEVETIRACETAM SOL (5 ML) 100 MG/ML UDC GT SCH ×2 (10:23→21:00)
[2020-02-24] MEDS: SIMETHICONE 80 MG TAB.CHEW GT SCH ×2 (10:23→21:00)
[2020-02-24] MEDS: OXCARBAZEPINE 150 MG TABLET GT SCH ×2 (10:23→21:00)
[2020-02-24] MEDS: ACIDOPHILUS/BULGARICUS 1 EACH TAB.CHEW GT SCH ×3 (10:23→17:39)
[2020-02-24] MEDS: MULTIVIT W/MINERALS 1 TAB TABLET GT SCH (10:24)
[2020-02-24] MEDS: SENNOSIDES 8.6 MG TABLET GT SCH ×2 (10:24→21:00)
[2020-02-24] MEDS: Z GUARD REMEDY 2 OZ OINT TP SCH ×2 (10:24→21:33)
[2020-02-24] MEDS: MEROPENEM 500 MG in IV NS 0.9% 50 ML IV SCH ×2 (10:25→21:32)
[2020-02-24] MEDS: CLOTRIMAZOLE 1% 15 GM TUBE TP SCH ×2 (10:25→17:39)
--- NOTE | 2020-02-24 10:26 | NUR ---
COASTAL AND ESTUARY SPECIALIST NOTE PATIENT COMPLETED HD TX, NO OUTPUT PER HD NURSE, MEDICATION ADMINISTERED.
[2020-02-24] MEDS ORDERED: DIATR MEGLU/DIATRIZOATE SODIUM 120 ML BOTTLE (GASTROGRAPHIN) ONE (12:14)
--- NOTE | 2020-02-24 12:39 | NUR ---
DRAFTER CIVIL ENGINEERING NOTES RECEIVED ORDER FROM DR. BRITTON TO KEEP PATIENT NPO DUE TO CONTRAST FOR SMALL BOWEL FOLLOW THROUGH TFO. HELD NEURONSHELDON AND REGIAM.
[2020-02-24] MEDS: INSULIN REGULAR, HUMAN 100 UNIT/ML 3 ML VIAL SQ PRN (12:52)
--- NOTE | 2020-02-24 14:10 | NUR ---
DIRECTOR OF REHABILITATION NOTES TRANSFERRED PATIENT TO STACIE ROOM 112-1 PER ACLS PROTOCOL. PATIENT REMAINS IN STABLE CONDITION.
--- NOTE | 2020-02-24 14:10 | NUR ---
HEAD END DESIZING MACHINE OPERATOR NOTES REPORT GIVEN TO BRIANNA CORDERO (STACIE NURSE) FOR CONTINUATION OF CARE.
--- NOTE | 2020-02-24 14:20 | NUR ---
SUPERVISOR HANGING AND TRIMMING NOTES RECEIVED PATIENT FROM ICU BROUGHT BY 2 STAFF VIA [facility]. PATIENT HAS TRACH, OBTUNDED, OPENS EYES TO VOICE, TOLERATING VENT SETTINGS WELL. NO SIGNS OF ACUTE DISTRESS NOTED AT THIS TIME. SR IN THE 80s NOTED ON BEDSIDE MONITOR. NPO, GT ON LOW INTERMITTENT SUCTION. NEPHROSTOMY IN PLACED, FC DRAINING YELLOW COLORED URINE. WOUND CARE PER ORDERS. PICC LINE C/D/I, FLUSHING WELL, NO SIGNS OF COMPLICATIONS NOTED. SAFETY MEASURES IMPLEMENTED, BED IN LOWEST POSITION, LOCKED, SIDE RAILS UP, CALL LIGHT WITHIN REACH. WILL CONTINUE TO MONITOR.
--- NOTE | 2020-02-24 19:01 | NUR ---
WHARF HELPER CLOSING NOTES PATIENT REMAINS OBTUNDED. HAS TRACH, OPENS EYES TO VOICE, TOLERATING VENT SETTINGS WELL. NO SIGNS OF ACUTE DISTRESS NOTED AT THIS TIME. SR IN THE 80s NOTED ON BEDSIDE MONITOR. NPO, GT ON LOW INTERMITTENT SUCTION. NEPHROSTOMY IN PLACED, FC DRAINING YELLOW COLORED URINE. WOUND CARE PER ORDERS. PICC LINE C/D/I, FLUSHING WELL, NO SIGNS OF COMPLICATIONS NOTED. SAFETY MEASURES IMPLEMENTED, WILL ENDORSE TO NEXT SHIFT.
--- NOTE | 2020-02-24 19:55 | NUR ---
RN OPENING NOTE PT RECEIVED IN BED. AWAKE AND ABLE TO FOLLOW COMMANDS. PT IS ON MECHANICAL VENTILATION VIA TRACH 100%. PT IS ON TELE MONITOR SHOWING SR IN 90s, PT HAS G TUBE GLUCERNA RUNNING AT 40 ML, TOLERATING WELL NO RESIDUAL NOTED. PT HAS LAMIN S/L FLUSHES WELL, AND INTACT.SAFETY MEASURES IN PLACE BED AT LOWEST POSITION, LOCKED, CALL LIGHT IN REACH, HOB ELEVATED, SIDE RAILS UP X2. Addendum: 02/24/20 at 2040 by LEONOR SOTO RN RN NOTE INCORRECT CHARTING. THIS CHARTING IS INTENDED FOR 115.
--- NOTE | 2020-02-24 20:00 | NUR ---
RT NOTE PT RECEIVED TRACHED WITH SHILEY 8 XLT TRACH. CUFF CHECKED VIA WEB MERCHANDISER. HHN TX GIVEN, NO ADVERSE REACTIONS NOTED. SX DONE, TRACH SECURED AND PATENT. PULSE OX CONNECTED. ALARMS ON AND AUDIBLE. VENT PLUGGED TO RED OUTLET. NO DISTRESS NOTED. Addendum: 02/24/20 at 2009 by BRIEN NEAL RT Amended: Links added.
--- NOTE | 2020-02-24 20:00 | NUR ---
RN OPENING NOTE PT RECEIVED IN BE. OPEN EYES TO LIGHT TOUCH, PT IS MECHANICAL VENT VIA TRACH SATING 100%. TELE MONITOR SHOWING SR HR IN 80s. PT HAS G TUBE ON INTERMITTENT SUCTIONING, PT HAS LEFT FEMORAL PICC LINE NS 100 ML/H RUNNING. PT HAS HD CATH ON LEFT CHEST WALL, PT HAS DAVIDSON DRAINING YELLOW URINE, AND NEPHROSTOMY BAG BLOOD NOTED IN THE BAG. SAFETY MEASURES IN PLACE.
[2020-02-24] MEDS: ASCORBIC ACID 500 MG TABLET GT SCH (21:00)
--- NOTE | 2020-02-24 21:27 | NUR ---
RN NOTE 2100 MEDS NON ADMINISTERED D/T NPO STATUS. DUKE ADAM ( MASK DESIGN ENGINEER) MADE AWARE. "SHE HAS GOT OBSTRUCTION. SO STRICT NPO". NO MEDS. PER DUKE.
[2020-02-24] MEDS: INSULIN GLARGINE, 100 UNIT/ML CARTRIDGE SQ SCH (22:00)
--- NOTE | 2020-02-24 22:12 | NUR ---
RN NOTE INSULIN NON ADMINISTERED D/T NPO STATUS AND BS IS 74.
[2020-02-25] VITALS (7 sets, daily range): BP systolic 115–166; BP diastolic 60–93
[2020-02-25] MEDS: IV NS 0.9% 1,000 ML IV PRN ×2 (00:30→13:16)
[2020-02-25] MEDS: BLOOD SUGAR DIAGNOSTIC 1 EACH STRIP IN SCH ×5 (00:30→23:36)
--- NOTE | 2020-02-25 01:00 | NUR ---
RN NOTE BS AT 0027 IS 73. IT IS NOT RECORDED IN THE SYSTEM.
[2020-02-25] MEDS: ALBUTEROL FS 2.5 MG/3 ML VIAL.NEB IH SCH ×4 (02:05→21:03)
[2020-02-25] MEDS: GABAPENTIN 300 MG CAPSULE GT SCH ×3 (05:00→21:19)
[2020-02-25] MEDS: METOCLOPRAMIDE HCL 10 MG/10 ML UDC GT SCH ×5 (06:00→23:20)
[2020-02-25] MEDS: PANTOPRAZOLE 40 MG/PACK PACK GT SCH (06:00)
--- NOTE | 2020-02-25 06:00 | NUR ---
RN NOTE BS FOR 0600 IS 74. IT IS NOT RECORDED IN THE SYSTEM.
[2020-02-25 06:44] LABS: BASOPHILS % (AUTO) 0.3 % (0.0-2.0); EOSINOPHILS % (AUTO) 2.4 % (0.0-6.0); HEMATOCRIT 25 % (33-45); HEMOGLOBIN 8.1 g/dL (11.5-14.8); LYMPHOCYTES % (AUTO) 6.7 % (20.0-44.0); MEAN CORPUSCULAR HGB CONC 32 g/dl (31.0-36.0); MEAN CORPUSCULAR VOLUME 97 fL (82-100); MONOCYTES # (AUTO) 1.2 /CMM (0.1-1.30); NEUTROPHILS # (AUTO) 12.7 /CMM (1.8-8.9); NEUTROPHILS % (AUTO) 82.6 % (43.0-81.0); PLATELET COUNT (AUTO) 270 /CMM (150-450); RED BLOOD CELL COUNT(AUTO) 2.58 MIL/uL (4.0-5.2); WHITE BLOOD COUNT (AUTO) 15.3 K/uL (4.3-11.0)
[2020-02-25 07:13] LABS: CALCIUM, SERUM 8.3 mg/dL (8.5-10.1); CREATININE 2.8 mg/dL (0.6-1.3); MAGNESIUM 3.3 mg/dL (1.8-2.4); PHOSPHORUS 3.2 mg/dL (2.5-4.9)
[2020-02-25 07:24] LABS: POTASSIUM 2.8 mmol/L (3.5-5.1)
--- NOTE | 2020-02-25 07:24 | NUR ---
RN CLOSING NOTE PT REMAINED STABLE DURING MY SHIFT. REPORT GIVEN TO INCOMING SHIFT FOR WHIT.
--- NOTE | 2020-02-25 07:33 | NUR ---
WATER MAINTENANCE SUPERVISOR OPENING NOTES PT REMAINS OBTUNDED. OPEN EYES TO LIGHT TOUCH, PT IS MECHANICAL VENT VIA TRACH SATING 100%. TELE MONITOR SHOWING SR HR IN 80s. PT HAS G TUBE ON INTERMITTENT SUCTIONING, PT HAS LEFT FEMORAL PICC LINE NS 100 ML/H RUNNING. PT HAS HD CATH ON LEFT CHEST WALL, PT HAS DAVIDSON DRAINING YELLOW URINE, AND NEPHROSTOMY BAG WITH PINK TO RED COLORED URINE. SAFETY PRECAUTIONS OBSERVED. WILL CONTINUE TO MONITOR.
[2020-02-25] MEDS: MULTIVIT W/MINERALS 1 TAB TABLET GT SCH (09:00)
[2020-02-25] MEDS: ACIDOPHILUS/BULGARICUS 1 EACH TAB.CHEW GT SCH ×2 (09:00→17:00)
[2020-02-25] MEDS: DOCUSATE SODIUM LIQ 100 MG/10 ML UDC GT SCH (09:00)
[2020-02-25] MEDS: SENNOSIDES 8.6 MG TABLET GT SCH ×2 (09:00→21:19)
[2020-02-25] MEDS: OXCARBAZEPINE 150 MG TABLET GT SCH ×2 (09:00→21:20)
[2020-02-25] MEDS: SIMETHICONE 80 MG TAB.CHEW GT SCH ×2 (09:00→21:20)
[2020-02-25] MEDS: LEVETIRACETAM SOL (5 ML) 100 MG/ML UDC GT SCH ×2 (09:00→21:19)
[2020-02-25] MEDS: MEROPENEM 500 MG in IV NS 0.9% 50 ML IV SCH ×2 (09:26→20:39)
[2020-02-25] MEDS: CLOTRIMAZOLE 1% 15 GM TUBE TP SCH ×2 (09:26→17:30)
[2020-02-25] MEDS: Z GUARD REMEDY 2 OZ OINT TP PRN (09:26)
[2020-02-25] MEDS: Z GUARD REMEDY 2 OZ OINT TP SCH ×2 (09:27→21:20)
--- NOTE | 2020-02-25 10:22 | NUR ---
MASTER OCEAN NOTES POTASSIUM LEVEL 2.8 DATED 02/25/[address] BRITTON WITH NO NEW ORDERS GIVEN. DR BOLAND (RESEARCH INTERVIEWER) MADE AWARE AND AGREED WITH NO RECOMMENDATIONS AT THIS TIME.
--- NOTE | 2020-02-25 17:00 | NUR ---
RT NOTE PT REMAINS MECHANICALLY VENTILATED VIA CUFFED TRACHEOSTOMY TUBE. CUFF INFLATED. TRACH TUBE MIDLINE AND SECURE. VENTILATOR SETTINGS PRESCRIBED. ALARMS SET PER PROTOCOL AND AUDIBLE. VENT PLUGGED IN TO RED OUTLET. AMBU BAG AND BACK UP TRACH AT BED SIDE. NO DISTRESS NOTED. Addendum: 02/25/20 at 1702 by MAXI BRADY RT Amended: Links added.
--- NOTE | 2020-02-25 17:39 | NUR ---
DR. BRITTON MADE AWARE PATIENT GLUCOSE TRENDING DOWN,REVIEWED SMALL BOWEL FF THRU IMAGING AND PER MD BUSTILLOS TO RESUME NEPHRO AT 45ML/HR. WILL CONTINUE TO MONITOR.
--- NOTE | 2020-02-25 17:40 | NUR ---
WILL DISCONTINUE IVF ONCE FEEDING STARTED PRIMARY RN MADE AWARE.
[2020-02-25] MEDS: NEPRO 1,000 ML BOTTLE GT PRN (18:21)
--- NOTE | 2020-02-25 18:59 | NUR ---
CLIENT ONBOARDING ANALYST CLOSING NOTES PATIENT REMAINS OBTUNDED. HAS TRACH, OPENS EYES TO VOICE, TOLERATING VENT SETTINGS WELL. NO S ACUTE DISTRESS NOTED DURING THE SHIFT SR IN THE 80s NOTED ON BEDSIDE MONITOR. NPO, GT ON LOW INTERMITTENT SUCTION, TOLERATED WELL. NEPHROSTOMY IN PLACED, FC DRAINING YELLOW COLORED URINE. WOUND CARE PER ORDERS. PICC LINE C/D/I, FLUSHING WELL, NO SIGNS OF COMPLICATIONS NOTED. SAFETY MEASURES IMPLEMENTED, WILL ENDORSE TO NEXT SHIFT. Addendum: 02/25/20 at 1931 by CONSUELO STEIN RN RESTARTED GTD OF NEPRO @45ML/HR. GTF IS INTACT, INFUSING WELL, WITH NO RESIDUAL. HEMODIALYSIS DONE TODAY WITH OUTPUT OF 500CC. PT REMAINS IN STABLE CONDITION.
--- NOTE | 2020-02-25 20:00 | NUR ---
STACIE PLATFORM BUILDER OPENING NOTES RECEIVED PATIENT FROM AM SHIFT NURSE CONSUELO, IN BED, OPENS EYES, RESPONDS TO COMMAND, WITH TRACH ATTACHED TO [facility] VENT V 500, PEEP 5, AC 12, FIO2 30%, NO SIGNS OF RESPIRATORY DISTRESS, LEFT CHEST WALL HD CATH, NO SIGNS OF BLEEDING NOTED, G TUBE FEEDING NEPHRO @ 45ML/HR, NEPHROSTOMY ATTACHED WITH CLEAR AND YELLOWISH FLUID, DAVIDSON CATH ATTACHED WITH YELLOWISH COLORED URINE, IV ACCESS OF LEFT FEMORAL, INTACT, SIDE RAILS X2, WILL CONTINUE TO MONITOR PATIENT.
[2020-02-25] MEDS: ASCORBIC ACID 500 MG TABLET GT SCH (21:20)
[2020-02-25] MEDS: INSULIN GLARGINE, 100 UNIT/ML CARTRIDGE SQ SCH (21:46)
[2020-02-25] MEDS: INSULIN REGULAR, HUMAN 100 UNIT/ML 3 ML VIAL SQ PRN (23:42)
--- NOTE | 2020-02-25 23:48 | NUR ---
BLOOD SUGAR IS 115MG/DL.
[2020-02-26] VITALS: BP 139/78
[2020-02-26] MEDS: ALBUTEROL FS 2.5 MG/3 ML VIAL.NEB IH SCH ×4 (02:54→19:55)
[2020-02-26 04:00] VITALS: BP 116/71
[2020-02-26] MEDS: GABAPENTIN 300 MG CAPSULE GT SCH ×3 (04:55→21:31)
[2020-02-26] MEDS: PANTOPRAZOLE 40 MG/PACK PACK GT SCH (05:05)
[2020-02-26] MEDS: METOCLOPRAMIDE HCL 10 MG/10 ML UDC GT SCH ×4 (05:05→23:48)
[2020-02-26] MEDS: BLOOD SUGAR DIAGNOSTIC 1 EACH STRIP IN SCH ×4 (05:11→23:42)
--- NOTE | 2020-02-26 05:16 | NUR ---
BLOOD SUGAR IS 132 MG/DL.
[2020-02-26] MEDS: INSULIN REGULAR, HUMAN 100 UNIT/ML 3 ML VIAL SQ PRN ×2 (05:19→23:49)
--- NOTE | 2020-02-26 05:45 | NUR ---
RT NOTE Pt received trach'd and on [facility] vent on ordered settings. Alarms are set and audible. Spare trach and bmv @ hob. No signs of sob or resp distress noted t/o shift. Pt stable. Will endorse to following therapist. Addendum: 02/26/20 at 0547 by JULIETH REY RT Amended: Links added.
[2020-02-26 06:49] LABS: BASOPHILS % (AUTO) 0.3 % (0.0-2.0); EOSINOPHILS % (AUTO) 2.9 % (0.0-6.0); HEMATOCRIT 26 % (33-45); HEMOGLOBIN 8.5 g/dL (11.5-14.8); LYMPHOCYTES # (AUTO) 1.1 /CMM (0.8-4.8); LYMPHOCYTES % (AUTO) 10.1 % (20.0-44.0); MEAN CORPUSCULAR HGB CONC 32 g/dl (31.0-36.0); MEAN CORPUSCULAR VOLUME 95 fL (82-100); MONOCYTES # (AUTO) 1.1 /CMM (0.1-1.30); MONOCYTES % (AUTO) 9.6 % (2.0-12.0); NEUTROPHILS # (AUTO) 8.8 /CMM (1.8-8.9); NEUTROPHILS % (AUTO) 77.1 % (43.0-81.0); PLATELET COUNT (AUTO) 320 /CMM (150-450); RED BLOOD CELL COUNT(AUTO) 2.75 MIL/uL (4.0-5.2); WHITE BLOOD COUNT (AUTO) 11.4 K/uL (4.3-11.0)
--- NOTE | 2020-02-26 06:59 | NUR ---
STACIE RN CLOSING NOTES ENDORSED PATIENT IN BED, OPENS EYES, RESPONDS TO COMMAND, WITH [facility] V[facility] V 500, PEEP 5, AC 12, FIO2 30%, NO SIGNS OF RESPIRATORY DISTRESS WHOLE SHIFT, O2 SAT 99%, LEFT CHEST WALL HD CATH, NO SIGNS OF BLEEDING NOTED, G TUBE FEEDING NEPHRO @ 45ML/HR INFUSING WELL, RESIDUE CHECK PRIOR TO GIVEN OF MEDS, NEPHROSTOMY ATTACHED WITH CLEAR AND YELLOWISH FLUID, DAVIDSON CATH ATTACHED WITH YELLOWISH COLORED URINE, IV ACCESS OF LEFT FEMORAL, INTACT, SIDE RAILS X2, SUCTIONED PATIENT'S ORAL OR TRACH NEEDED, DUE MEDS GIVEN,
[2020-02-26 07:09] LABS: CALCIUM, SERUM 9.2 mg/dL (8.5-10.1); CREATININE 2.2 mg/dL (0.6-1.3); MAGNESIUM 2.3 mg/dL (1.8-2.4); PHOSPHORUS 2.4 mg/dL (2.5-4.9)
[2020-02-26 08:00] VITALS: BP 152/81
[2020-02-26] MEDS ORDERED: POTASSIUM CHLORIDE 20 MEQ TAB.PRT.SR PO ONE (08:00)
--- NOTE | 2020-02-26 08:00 | NUR ---
OIL PROSPECTING OBSERVER NOTE PATIENT IN BED WITH TRACH TO VENT SETTING ORDERED ON TELE MONITOR SR 100 , WITH LT NEPHRO STOMA WITH YELLOW COLOR URINE NOTED , AND DAVIDSON CATH TO GRAVITY WITH YELLOW COLOR URINE , WITH G TUBE FEEDING ORDERED ,KEEP HOB ELEVATED AT ALL TIME,LT FOREARM PICC LINE IN PLACE , BED IN LOWEST AND LOCKED POSITION ON KCI MATRASS ,WILL CONT TO MONITOR CLOSELY Addendum: 02/26/20 at 1526 by ELIZABETH VÁSQUEZ RN lt femoral picc line in placed and flushed well Addendum: 02/26/20 at 1527 by ELIZABETH VÁSQUEZ RN abdomen still distended but soft to touch
[2020-02-26] MEDS: MEROPENEM 500 MG in IV NS 0.9% 50 ML IV SCH ×2 (08:01→21:32)
[2020-02-26] MEDS: DOCUSATE SODIUM LIQ 100 MG/10 ML UDC GT SCH (08:09)
[2020-02-26] MEDS: LEVETIRACETAM SOL (5 ML) 100 MG/ML UDC GT SCH ×2 (08:09→21:32)
[2020-02-26] MEDS: ACIDOPHILUS/BULGARICUS 1 EACH TAB.CHEW GT SCH ×2 (08:10→16:33)
[2020-02-26] MEDS: SIMETHICONE 80 MG TAB.CHEW GT SCH ×2 (08:10→21:31)
[2020-02-26] MEDS: MULTIVIT W/MINERALS 1 TAB TABLET GT SCH (08:10)
[2020-02-26] MEDS: SENNOSIDES 8.6 MG TABLET GT SCH ×2 (08:10→21:31)
[2020-02-26] MEDS: OXCARBAZEPINE 150 MG TABLET GT SCH ×2 (08:11→21:32)
[2020-02-26] MEDS: Z GUARD REMEDY 2 OZ OINT TP PRN (08:15)
[2020-02-26] MEDS: Z GUARD REMEDY 2 OZ OINT TP SCH ×2 (08:32→22:12)
--- NOTE | 2020-02-26 09:00 | NUR ---
telecommunication tower technician note dr Pittman notified that k 3.0 with order to replace with kcl , order carried out
[2020-02-26] MEDS: CLOTRIMAZOLE 1% 15 GM TUBE TP SCH ×2 (09:04→16:33)
--- NOTE | 2020-02-26 09:30 | NUR ---
CHEF GERMAN NOTE SACRAL WOUND NOTED WITH MORE OPEN ARE NOTED WITH REDNESS AROUND ,WOUND CARE CONSULT ORDERED, WILL F\U
--- NOTE | 2020-02-26 11:31 | NUR ---
COMMISSIONING AGENT NOTE SPOKE WITH DR ADKINS NOTIFIED THAT PHOSPHORUS 2.4 TODAY , STATED NO HD TODAY ,NO NEW ORDER AT THIS TIME ,NO NEED TO REPLACE AT THIS TIME ,WILL CONT TO MONITOR CLOSELY PHARMACY NOTIFIED Addendum: 02/26/20 at 1149 by ELIZABETH VÁSQUEZ RN RT AT BEDSIDE, TRACH CARE DONE .TRACH SUCTION DONE ,WILL CONT TO MONITOR
[2020-02-26 12:00] VITALS: BP 139/77
--- NOTE | 2020-02-26 12:35 | NUR ---
STACIE REED NOTE DR NEAL AT BEDSIDE AWARE THAT ON TELE MONITOR HIGHEST HEART RATE WAS 115-120 AFIB AND ONE TIME 145 FEW SECONDS, ORDERED COREG EXTRA DOSE NOW , ORDER CARRIED OUT Addendum: 02/26/20 at 1244 by ELIZABETH VÁSQUEZ RN WRONG CHARTING WRONG PATIENT
--- NOTE | 2020-02-26 14:20 | NUR ---
telephone lines repairer note rt at bedside, breathing tx done as ordered ,turn reposition q2 hour , will cont to monitor
--- NOTE | 2020-02-26 14:48 | NUR ---
teletypewriter operator note Tylenol via g tube given for discomfort ,will cont to monitor turn repositio done , trach suction done
[2020-02-26 16:00] VITALS: BP 140/75
--- NOTE | 2020-02-26 17:43 | NUR ---
FIBROUS WALLBOARD INSPECTOR NOTE ROUNDS MADE ,ALL NEEDS ATTENDED, CONT WITH TRACH TO VENT SETTING ORDERED WITH DAVIDSON CATH TO GRAVITY AND LT SIDE NEPHROSTOMA IN PACED, ON KCI MATRASS, TURN REPOSITION DONE KEEP CLEAN DRY WILL CONT TO MONITOR, NO SOB NOTED AT THIS TIME ,
[2020-02-26] MEDS: NEPRO 1,000 ML BOTTLE GT PRN (18:35)
--- NOTE | 2020-02-26 18:38 | NUR ---
CONTACT CENTER MANAGER NOTE CONT ON G TUBE FEEDING ORDERED, KEEP HOP ELEVATED AT ALL TIME WITH DAVIDSON CATH TO GRAVITY ON [employer] MATRASS, TRACH CARE DONE, WILL CONT TO MONITOR CLOSELY
[2020-02-26 20:00] VITALS: BP 121/68
--- NOTE | 2020-02-26 20:00 | NUR ---
MEDICAL SECRETARY TEACHER NOTE RECEIVED PT IN BED. ASLEEP. BREATHING EVEN AND UNLABORED. ON MECHANICAL VENT. TOLERATING SETTINGS WELL. SINUS RHYTHM ON MONITOR. NO S/S OF PAIN OR DISCOMFORT. LEFT FEMORAL 3 LUMEN INTACT AND PATENT. LEFT CHEST WALL HD CATH NOTED. DRESSING INTACT. DAVIDSON CATH PATENT DRAINING YELLOW CLEAR URINE. LEFT NEPHROSTOMY PATENT. CLEAR YELLOW DRAINAGE NOTED. GTUBE PATENT. GTF NEPHRO 45ML/HR INFUSING WELL. 0ML RESIDUAL NOTED. MEPILEX INTACT ON SACRUM. REPOSITIONED. SRX2 UP. BED IN LOWEST POSITION. HOB ELEVATED. CALL LIGHT WITHIN REACH. VSS. WILL CONTINUE TO MONITOR.
[2020-02-26] MEDS: ASCORBIC ACID 500 MG TABLET GT SCH (21:32)
[2020-02-26] MEDS: INSULIN GLARGINE, 100 UNIT/ML CARTRIDGE SQ SCH (23:48)
[2020-02-27] VITALS: BP 115/65
[2020-02-27] MEDS: ALBUTEROL FS 2.5 MG/3 ML VIAL.NEB IH SCH ×4 (01:56→19:35)
[2020-02-27 04:00] VITALS: BP 134/66
[2020-02-27] MEDS: BLOOD SUGAR DIAGNOSTIC 1 EACH STRIP IN SCH ×4 (05:30→23:26)
[2020-02-27] MEDS: GABAPENTIN 300 MG CAPSULE GT SCH ×3 (05:34→20:08)
[2020-02-27] MEDS: METOCLOPRAMIDE HCL 10 MG/10 ML UDC GT SCH ×4 (05:35→23:26)
[2020-02-27] MEDS: PANTOPRAZOLE 40 MG/PACK PACK GT SCH (05:35)
--- NOTE | 2020-02-27 06:36 | NUR ---
RECEIPT AND REPORT CLERK NOTE PT IN BED. OBTUNDED. BREATHING EVEN AND UNLABORED ON MECHANICAL VENT. TOLERATING SETTING. NO S/S OF PAIN NOTED. ON TELE MONITOR SR 64. GTUBE FEEDING INFUSING WELL. 0ML RESIDUAL. HOB ELEVATED. LEFT NEPHROSTOMY DRAINAGE INTACT. CLEAR YELLOW FLUID OUTPUT NOTED. DAVIDSON CATH INTACT AND PATENT. DRAINING YELLOW CLEAR URINE. REPOSITIONED EVERY TWO HOURS. KEPT CLEAN AND DRY. SRX2 UP. BED IN LOWEST POSITION. CALL LIGHT WITHIN REACH. WILL ENDORSE TO NEXT SHIFT FOR CONTINUITY OF CARE.
--- NOTE | 2020-02-27 07:15 | NUR ---
RN OPENING NOTE: Received patient in bed and awake. Unable to follow commands. On mechanical ventilation and tolerating settings well. Tele monitor showing sinus rhythm in the 80s. IV site clean, dry, patent and intact. With Left Nephrostomy in place, site clean, dry, patent and intact. Bourgeois catheter in place and draining yellow urine. HD catheter site with clean,dry, dressing. Gtube patent and in place with feeding of Nepro @ 45mls/hr. Wounds documented and with treatment in place. No pain noted on patient. Call light in reach. Bed locked, low and at semi-gonzalez's position. Side rails up x3. Safety ensured and observed. Will continue to monitor.
[2020-02-27 08:00] VITALS: BP 126/49
[2020-02-27] MEDS: MULTIVIT W/MINERALS 1 TAB TABLET GT SCH (08:33)
[2020-02-27] MEDS: LEVETIRACETAM SOL (5 ML) 100 MG/ML UDC GT SCH ×2 (08:33→20:07)
[2020-02-27] MEDS: MEROPENEM 500 MG in IV NS 0.9% 50 ML IV SCH ×2 (08:33→20:07)
[2020-02-27] MEDS: SIMETHICONE 80 MG TAB.CHEW GT SCH ×2 (08:33→20:08)
[2020-02-27] MEDS: OXCARBAZEPINE 150 MG TABLET GT SCH ×2 (08:33→20:08)
[2020-02-27] MEDS: DOCUSATE SODIUM LIQ 100 MG/10 ML UDC GT SCH (08:33)
[2020-02-27] MEDS: ACIDOPHILUS/BULGARICUS 1 EACH TAB.CHEW GT SCH ×2 (08:33→17:48)
[2020-02-27] MEDS: SENNOSIDES 8.6 MG TABLET GT SCH ×2 (08:33→20:08)
[2020-02-27] MEDS: CLOTRIMAZOLE 1% 15 GM TUBE TP SCH ×2 (08:34→17:48)
[2020-02-27] MEDS: Z GUARD REMEDY 2 OZ OINT TP SCH ×2 (08:35→20:30)
--- NOTE | 2020-02-27 09:39 | NUR ---
WOUND CARE CONSULT/FOLLOW UP: PT SEEN FOR SACRAL SCARRING WHICH EXTENDS TO BUTTOCKS WITH INCONTINENCE ASSOCIATED SKIN DAMAGE OVER PREVIOUS SCARRING WELL RASH WITH PEELING SKIN TO BUTTOCKS, PRESENT ON ADMISSION. PT CONTINUES TO BE INCONTINENT OF LOOSE STOOL. SKIN TO BE KEPT CLEAN AND DRY. DISCUSSED SKIN PROTECTION WITH NURSING STAFF. WILL SEE PRN. PT IS ON FIRST STEP [facility]. STUART WILKINSON. IN AGREEMENT WITH PLAN OF CARE. Addendum: 02/27/20 at 0941 by BRI MICHAUD WNDNU Amended: Links added. Addendum: 02/27/20 at 0943 by BRI MICHAUD WNDNU SOME IMPROVEMENT NOTED IN RASH. CONTINUE PRESENT TREATMENT. DISCUSSED WITH NURSING STAFF.
[2020-02-27 12:00] VITALS: BP 133/41
[2020-02-27] MEDS: EPOETIN ALFA (4000 UNIT) 4,000 UNIT/ML VIAL SQ SCH (14:54)
[2020-02-27 16:00] VITALS: BP 128/54
[2020-02-27] MEDS ORDERED: EPOETIN ALFA (10,000 UNIT) 10,000 UNIT/ML VIAL SQ SCH (17:30)
--- NOTE | 2020-02-27 18:19 | NUR ---
RN CLOSING NOTE: Patient remains in bed and awake. Unable to follow commands. On mechanical ventilation and tolerating settings well. Tele monitor showing sinus rhythm in the 80s. IV site clean, dry, patent and intact. With Left Nephrostomy in place, site clean, dry, patent and intact. Bourgeois catheter in place and draining yellow urine. HD catheter site with clean,dry, dressing and currently undergoing hemodialysis with 500mls output. Gtube patent and in place with feeding of Nepro @ 45mls/hr. No pain noted on patient. Treatment done as ordered. Call light in reach. Bed locked, low and at semi-gonzalez's position. Side rails up x3. Safety ensured and observed. Due medications given. Will endorse to oncoming shift for WHIT.
--- NOTE | 2020-02-27 19:23 | NUR ---
RN NOTE: Report given to BRIANNA Medina
--- NOTE | 2020-02-27 19:54 | NUR ---
BULK SAUSAGE CASING TIER OFF OPEN NOTES PATIENT IS LAYING IN BED. NONVERBAL. [facility] V[facility] TOLERATING WELL, NO SOB/ ACUTE RESPIRATORY DISTRESS NOTED. G TUBE IN PLACE, RECEIVING FEEDING @ 45 MLS/HR. BED IS IN LOWEST LOCKED POSITION WITH SIDE RAILS UP X3, SEMI FOWLERS. CALL LIGHT IS WITHIN REACH. WILL CONTINUE TO MONITOR.
[2020-02-27 20:00] VITALS: BP 129/63
[2020-02-27] MEDS: ASCORBIC ACID 500 MG TABLET GT SCH (20:08)
[2020-02-27] MEDS: Z GUARD REMEDY 2 OZ OINT TP PRN (20:26)
--- NOTE | 2020-02-27 21:34 | NUR ---
PT RECEIVED TRACHED ON MECHANICAL VENTILATION. SHILEY 8 X[address] IN [address] KATHARINEU BAG @ [facility]. N TX GIVEN, NO ADVERSE REACTIONS NOTED. SX DONE, TRACH SECURED AND PATENT. ALARMS ON AND AUDIBLE. VENT PLUGGED TO RED OUTLET. NO DISTRESS NOTED. WILL MONITOR T/O SHIFT. Addendum: 02/27/20 at 2135 by BRIEN NEAL RT Amended: Links added.
[2020-02-27] MEDS: INSULIN GLARGINE, 100 UNIT/ML CARTRIDGE SQ SCH (21:50)
[2020-02-27] MEDS: NEPRO 1,000 ML BOTTLE GT PRN (23:30)
[2020-02-28] VITALS (9 sets, daily range): BP systolic 105–157; BP diastolic 56–90
[2020-02-28] MEDS: ALBUTEROL FS 2.5 MG/3 ML VIAL.NEB IH SCH ×4 (00:38→20:01)
[2020-02-28] MEDS: PANTOPRAZOLE 40 MG/PACK PACK GT SCH (05:00)
[2020-02-28] MEDS: METOCLOPRAMIDE HCL 10 MG/10 ML UDC GT SCH ×4 (05:00→23:41)
[2020-02-28] MEDS: GABAPENTIN 300 MG CAPSULE GT SCH ×3 (05:00→21:27)
[2020-02-28] MEDS: BLOOD SUGAR DIAGNOSTIC 1 EACH STRIP IN SCH ×4 (05:43→23:40)
--- NOTE | 2020-02-28 06:22 | NUR ---
SMOOTH PLATER CLOSE NOTES PATIENT IS LAYING IN BED. NONVERBAL, OPENS EYES TO VERBAL AND TACTILE STIMULI. [facility] V[facility] TOLERATING WELL. TELE MONITOR READING SINUS RHYTHM, 86. G TUBE IN PLACE RECEIVING FEEDING @ 45MLS/HR, TOLERATING WELL. LEFT FEMORAL 3 LUMEN CATHETER IS PATENT AND INTACT, ALL DUE ANTIBIOTICS GIVEN. DAVIDSON CATHETER IN PLACE DRAINING 200 ML CLEAR URINE. L NEPHROSTOMY INTACT, SITE IS CLEAN. BED IS IN LOWEST LOCKED POSITION WITH SIDE RAILS UP X3, SEMI FOWLERS. CALL LIGHT IS WITHIN REACH. WILL ENDORSE TO AM NURSE.
[2020-02-28 06:55] LABS: BASOPHILS # (AUTO) 0.1 /CMM (0.0-0.2); BASOPHILS % (AUTO) 0.5 % (0.0-2.0); EOSINOPHILS % (AUTO) 4.8 % (0.0-6.0); LYMPHOCYTES # (AUTO) 1.6 /CMM (0.8-4.8); LYMPHOCYTES % (AUTO) 14.8 % (20.0-44.0); MEAN CORPUSCULAR HGB CONC 33 g/dl (31.0-36.0); MEAN CORPUSCULAR VOLUME 97 fL (82-100); MONOCYTES # (AUTO) 0.8 /CMM (0.1-1.30); MONOCYTES % (AUTO) 7.7 % (2.0-12.0); NEUTROPHILS % (AUTO) 72.2 % (43.0-81.0); PLATELET COUNT (AUTO) 317 /CMM (150-450)
[2020-02-28 07:12] LABS: CALCIUM, SERUM 9.1 mg/dL (8.5-10.1); POTASSIUM 3.5 mmol/L (3.5-5.1)
[2020-02-28 07:19] LABS: RED BLOOD CELL COUNT(AUTO) 1.97 MIL/uL (4.0-5.2)
[2020-02-28 07:20] LABS: HEMATOCRIT 19 % (33-45); HEMOGLOBIN 6.3 g/dL (11.5-14.8)
--- NOTE | 2020-02-28 07:20 | NUR ---
RN OPENING NOTE Received patient awake in bed appears calm and relaxed no signs of distress. On trach and vent Shiley 8 XLT AC 12 TV 500 fio2 30% PEEP 5. Patient opens eyes but non-verbal. Tele reading ST 80s. Has FC draining clear yellow urine and L Nephrostomy tube draining clear/cloudy urine. On GTF Nepro @ 45ml/hr. L Chest Wal HD dressing intact. L Femoral PICC line flushes well. Safety measures reinforced. Call light within reach. Bed locked and on lowest position. HOB elevated. Will cont to monitor.
--- NOTE | 2020-02-28 07:30 | NUR ---
CRITICAL LAB VALUE HGB 6.3 PRBC WILL BE TRANSFUSED BY HEMODIALYSIS. CONSENT IS SIGNED.
[2020-02-28] MEDS: DOCUSATE SODIUM LIQ 100 MG/10 ML UDC GT SCH (08:47)
[2020-02-28] MEDS: MULTIVIT W/MINERALS 1 TAB TABLET GT SCH (08:47)
[2020-02-28] MEDS: SIMETHICONE 80 MG TAB.CHEW GT SCH ×2 (08:47→21:27)
[2020-02-28] MEDS: OXCARBAZEPINE 150 MG TABLET GT SCH ×2 (08:48→21:27)
[2020-02-28] MEDS: SENNOSIDES 8.6 MG TABLET GT SCH ×2 (08:48→21:27)
[2020-02-28] MEDS: MEROPENEM 500 MG in IV NS 0.9% 50 ML IV SCH ×2 (08:48→21:26)
[2020-02-28] MEDS: LEVETIRACETAM SOL (5 ML) 100 MG/ML UDC GT SCH ×2 (08:48→21:27)
[2020-02-28] MEDS: ACIDOPHILUS/BULGARICUS 1 EACH TAB.CHEW GT SCH ×2 (08:48→16:27)
[2020-02-28] MEDS: Z GUARD REMEDY 2 OZ OINT TP SCH ×2 (08:49→21:27)
[2020-02-28] MEDS: CLOTRIMAZOLE 1% 15 GM TUBE TP SCH ×2 (08:49→16:28)
[2020-02-28 08:52] LABS: EOSINOPHILS % (MANUAL) 4 % (0-4); LYMPHOCYTES % (MANUAL) 14 % (16-48); MONOCYTES % (MANUAL) 5 % (0-11.0); NEUTROPHILS % (MANUAL) 77 (42-76)
--- NOTE | 2020-02-28 09:30 | NUR ---
0930 G tube placement checked before administering medication. No residuals, air auscultated to check for placement, tube patent.
--- NOTE | 2020-02-28 12:30 | NUR ---
1230 G tube placement checked before administering medication. No residuals, air auscultated to check for placement, tube patent.
--- NOTE | 2020-02-28 14:39 | NUR ---
SEEN BY DR. LAND
--- NOTE | 2020-02-28 15:20 | NUR ---
HD DONE TOLERATED WELL. NO OUTPUT TAKEN OUT JUST CLEAN. LATEST VITAL SIGNS BP 105/63 HR 103 TEMP 98.6 RR 12. WILL CONT TO MONITOR.
--- NOTE | 2020-02-28 17:30 | NUR ---
1730 G tube placement checked before administering medication. No residuals, air auscultated to check for placement, tube patent.
--- NOTE | 2020-02-28 18:30 | NUR ---
CALLED LABS TO BRAKE SHOE REBUILDER STOOL IN THE [place] ROOM
--- NOTE | 2020-02-28 19:32 | NUR ---
PATIENT IN BED AWAKE EASILY AROUSED BY VOICE. OPENS EYES. NO SIGNS OF DISTRESS. VENT SETTINGS REMAIN THE SAME TOLERATING WELL. ALL DUE MEDS GIVEN. KEPT CLEAN AND DRY. TURNED AND REPOSITIONED. ENDORSED TO MARRIAGE COUNSELOR NURSE FOR WHIT.
[2020-02-28 20:29] LABS: OCCULT BLOOD STOOL NEGATIVE (NEGATIVE)
[2020-02-28] MEDS: ASCORBIC ACID 500 MG TABLET GT SCH (21:27)
[2020-02-28] MEDS: INSULIN GLARGINE, 100 UNIT/ML CARTRIDGE SQ SCH (22:00)
[2020-02-28] MEDS: NEPRO 1,000 ML BOTTLE GT PRN (23:40)
[2020-02-29] VITALS: BP 154/67
[2020-02-29] MEDS: ALBUTEROL FS 2.5 MG/3 ML VIAL.NEB IH SCH ×4 (01:55→19:56)
[2020-02-29 04:00] VITALS: BP 157/87
--- NOTE | 2020-02-29 04:17 | NUR ---
RT NOTE [facility] mode. Pt shows no signs of resp distress or sob. Trach is patent and secured. Pt sx'd for thick mod amt of pale yellow secretions. Vent plugged into red outlet. Alarms are set and audible. Ambu bag and emergency spare trach bedside. Will continue to monitor closely. Addendum: 02/29/20 at 0418 by LADAN WICK RT Amended: Links added.
[2020-02-29] MEDS: PANTOPRAZOLE 40 MG/PACK PACK GT SCH (05:16)
[2020-02-29] MEDS: METOCLOPRAMIDE HCL 10 MG/10 ML UDC GT SCH ×4 (05:16→23:08)
[2020-02-29] MEDS: GABAPENTIN 300 MG CAPSULE GT SCH ×3 (05:16→20:33)
[2020-02-29] MEDS: BLOOD SUGAR DIAGNOSTIC 1 EACH STRIP IN SCH ×4 (05:16→23:08)
[2020-02-29] MEDS: INSULIN REGULAR, HUMAN 100 UNIT/ML 3 ML VIAL SQ PRN ×2 (05:30→23:10)
[2020-02-29 08:00] VITALS: BP 158/68
--- NOTE | 2020-02-29 08:26 | NUR ---
RN OPENING NOTES: RECEIVED PT IN BED EYES OPEN. PT IS ON TRACH, NO SIGNS OF RESPIRATORY DISTRESS, SOB, DIFFICULTY BREATHING OR ANY PAIN, IV SITE INTACT, PATENT FLUSHED WELL, SAFETY AND COMFORT MEASURES MAINTAINED, CALL LIGHT WITHIN REACH WILL CONTINUE TO MONITOR.
[2020-02-29] MEDS: ACIDOPHILUS/BULGARICUS 1 EACH TAB.CHEW GT SCH ×2 (09:06→17:10)
[2020-02-29] MEDS: DOCUSATE SODIUM LIQ 100 MG/10 ML UDC GT SCH (09:06)
[2020-02-29] MEDS: OXCARBAZEPINE 150 MG TABLET GT SCH ×2 (09:06→20:32)
[2020-02-29] MEDS: LEVETIRACETAM SOL (5 ML) 100 MG/ML UDC GT SCH ×2 (09:06→20:32)
[2020-02-29] MEDS: MULTIVIT W/MINERALS 1 TAB TABLET GT SCH (09:07)
[2020-02-29] MEDS: SIMETHICONE 80 MG TAB.CHEW GT SCH ×2 (09:07→20:34)
[2020-02-29] MEDS: SENNOSIDES 8.6 MG TABLET GT SCH ×2 (09:07→20:33)
[2020-02-29] MEDS: MEROPENEM 500 MG in IV NS 0.9% 50 ML IV SCH ×2 (09:09→20:43)
[2020-02-29] MEDS: CLOTRIMAZOLE 1% 15 GM TUBE TP SCH ×2 (09:10→17:11)
[2020-02-29] MEDS: Z GUARD REMEDY 2 OZ OINT TP SCH ×2 (09:11→20:37)
[2020-02-29 09:42] LABS: BASOPHILS # (AUTO) 0.1 /CMM (0.0-0.2); BASOPHILS % (AUTO) 0.8 % (0.0-2.0); EOSINOPHILS % (AUTO) 4.7 % (0.0-6.0); HEMATOCRIT 21 % (33-45); LYMPHOCYTES # (AUTO) 2.1 /CMM (0.8-4.8); LYMPHOCYTES % (AUTO) 18.6 % (20.0-44.0); MEAN CORPUSCULAR HGB CONC 33 g/dl (31.0-36.0); MEAN CORPUSCULAR VOLUME 99 fL (82-100); MONOCYTES # (AUTO) 0.9 /CMM (0.1-1.30); MONOCYTES % (AUTO) 8.1 % (2.0-12.0); NEUTROPHILS # (AUTO) 7.7 /CMM (1.8-8.9); NEUTROPHILS % (AUTO) 67.8 % (43.0-81.0); PLATELET COUNT (AUTO) 279 /CMM (150-450); RED BLOOD CELL COUNT(AUTO) 2.14 MIL/uL (4.0-5.2); WHITE BLOOD COUNT (AUTO) 11.4 K/uL (4.3-11.0)
[2020-02-29 10:25] LABS: ALBUMIN 1.7 g/dL (3.4-5.0); BILIRUBIN,TOTAL 0.3 mg/dL (0.2-1.0); CALCIUM, SERUM 9.5 mg/dL (8.5-10.1); CREATININE 2.2 mg/dL (0.6-1.3); MAGNESIUM 2.2 mg/dL (1.8-2.4); PHOSPHORUS 2.1 mg/dL (2.5-4.9); POTASSIUM 3.3 mmol/L (3.5-5.1); TOTAL PROTEIN, SERUM 7.7 g/dL (6.4-8.2)
[2020-02-29 10:29] LABS: EOSINOPHILS % (MANUAL) 6 % (0-4); LYMPHOCYTES % (MANUAL) 24 % (16-48); MONOCYTES % (MANUAL) 9 % (0-11.0); NEUTROPHILS % (MANUAL) 61 (42-76)
--- NOTE | 2020-02-29 10:32 | NUR ---
RN NOTES: LAB CALLED TO REPORT HGB TRENDING UP FROM 6.3 TO 7. WILL CONTINUE TO MONITOR.
[2020-02-29 12:00] VITALS: BP 157/67
[2020-02-29] MEDS ORDERED: NEUTRA PHOS 1 POWD.PACKET GT ONE (12:30)
[2020-02-29 16:00] VITALS: BP 127/42
--- NOTE | 2020-02-29 18:35 | NUR ---
RN CLOSING NOTES: PT IN BED EYES OPEN, NO ACUTE CHANGES DURING SHIFT, VITALS WNL, NO SIGNS OF RESPIRATORY DISTRESS, OR PAIN, IV SITE PATENT, INTACT, FLUSHED WELL, SAFETY AND COMFORT MEASURES MAINTAINED, CALL LIGHT WITHIN REACH WILL ENDORSE TO PM NURSE FOR CONTINUATION OF CARE.
--- NOTE | 2020-02-29 19:20 | NUR ---
RN OPENING NOTES RECEIVED PT IN BED IN SEMI MITCHELL'S POSITION. NON VERBAL BUT RESPONSIVE TO VERBAL AND TACTILE STIMULI. TRACH MID LINE AND IN PLACE. TOLERATING VENT SETTINGS WELL. RESPIRATIONS EVEN AND UNLABORED. SR ON THE TELE MONITOR. WITH DAVIDSON CATHETER PATENT AND IN PLACE DRAINING CLEAR YELLOW URINE. WITH LEFT NEPHROSTOMY IN PLACE DRAINING CLEAR YELLOW DRAINAGE. GT PATENT AND FLUSHED. WITH TUBE FEEDING ORDERED AND TOLERATING WELL WITH MINIMAL GASTRIC RESIDUAL. LEFT CHEST HD CATH INTACT. LEFT FEMORAL PICC LINE FLUSHED AND PATENT WITHOUT COMPLICATIONS AT SITE. CALL LIGHT WITHIN REACH, SAFETY MEASURES IN PLACE, WILL MONITOR PATIENT.
[2020-02-29 20:00] VITALS: BP 136/74
[2020-02-29] MEDS: ASCORBIC ACID 500 MG TABLET GT SCH (20:33)
[2020-02-29] MEDS: INSULIN GLARGINE, 100 UNIT/ML CARTRIDGE SQ SCH (21:54)
[2020-02-29] MEDS: NEPRO 1,000 ML BOTTLE GT PRN (21:58)
[2020-03-01] VITALS (9 sets, daily range): BP systolic 110–155; BP diastolic 68–90
[2020-03-01] MEDS: ALBUTEROL FS 2.5 MG/3 ML VIAL.NEB IH SCH ×4 (02:00→20:06)
--- NOTE | 2020-03-01 03:46 | NUR ---
RT NOTE Pt rec'd trached on [facility] vent on AC mode on noted settings as charted. Pt shows no signs of resp distress or sob. Trach is patent and secured. Pt sx'd for thick mod amt of pale yellow secretions. Alarms are set and audible. ambu bag and emergency spare trach bedside. Vent plugged into red outlet. Will continue to monitor. Addendum: 03/01/20 at 0346 by LADAN WICK RT Amended: Links added.
--- NOTE | 2020-03-01 04:00 | NUR ---
RN NOTE BED BATH AND AM CARE COMPLETED. PT TOLERATED WELL. NOTED WITH 50ML OF GASTRIC RESIDUAL FROM GT. TUBE FEEDING RATE LOWERED TO 25ML/HOUR FOR NOW. WILL MONITOR.
[2020-03-01] MEDS: METOCLOPRAMIDE HCL 10 MG/10 ML UDC GT SCH ×2 (05:03→11:39)
[2020-03-01] MEDS: GABAPENTIN 300 MG CAPSULE GT SCH ×3 (05:03→21:07)
[2020-03-01] MEDS: PANTOPRAZOLE 40 MG/PACK PACK GT SCH (05:05)
[2020-03-01] MEDS: BLOOD SUGAR DIAGNOSTIC 1 EACH STRIP IN SCH ×4 (05:17→23:24)
--- NOTE | 2020-03-01 06:38 | NUR ---
RN CLOSING NOTES NO ACUTE CHANGES OBSERVED OVERNIGHT. PT TOLERATING VENT SETTINGS WELL. PT RESPONSIVE TO NAME. GT PATENT AND RUNNING WITH NEPRO @ 30ML/HOUR. WILL ENDORSE TO MORNING RN TO ADVANCE TUBE FEEDING RATE TOLERATED. DAVIDSON CATHETER PATENT AND IN PLACE DRAINING CLEAR YELLOW URINE. WITH LEFT NEPHROSTOMY DRAINING CLEAR YELLOW DRAINAGE. WOUND CARE RENDERED ORDERED. SR ON THE TELE MONITOR. LEFT FEMORAL PICC LINE INTACT AND FLUSHING WELL WITHOUT SIGNS OF COMPLICATIONS NOTED AT SITE. ALL NEEDS MET AND ATTENDED TO, SAFETY MEASURES IN PLACE, WILL ENDORSE TO MORNING RN FOR CONTINUATION OF CARE.
[2020-03-01 07:00] LABS: BASOPHILS # (AUTO) 0.1 /CMM (0.0-0.2); BASOPHILS % (AUTO) 0.7 % (0.0-2.0); EOSINOPHILS % (AUTO) 5.1 % (0.0-6.0); HEMATOCRIT 21 % (33-45); LYMPHOCYTES # (AUTO) 1.5 /CMM (0.8-4.8); LYMPHOCYTES % (AUTO) 12.9 % (20.0-44.0); MEAN CORPUSCULAR HGB CONC 33 g/dl (31.0-36.0); MEAN CORPUSCULAR VOLUME 98 fL (82-100); MONOCYTES # (AUTO) 0.7 /CMM (0.1-1.30); MONOCYTES % (AUTO) 6.5 % (2.0-12.0); NEUTROPHILS # (AUTO) 8.6 /CMM (1.8-8.9); NEUTROPHILS % (AUTO) 74.8 % (43.0-81.0); PLATELET COUNT (AUTO) 294 /CMM (150-450); RED BLOOD CELL COUNT(AUTO) 2.13 MIL/uL (4.0-5.2); WHITE BLOOD COUNT (AUTO) 11.5 K/uL (4.3-11.0)
[2020-03-01 07:04] LABS: HEMOGLOBIN 6.9 g/dL (11.5-14.8)
--- NOTE | 2020-03-01 07:04 | NUR ---
RN NOTE RECEIVED ALERT FOR HGB 6.9. WILL PAGE [facility] AND ENDORSE TO MORNING RN FOR FOLLOW UP.
[2020-03-01 07:15] LABS: CALCIUM, SERUM 9.4 mg/dL (8.5-10.1); CREATININE 2.5 mg/dL (0.6-1.3); PHOSPHORUS 2.9 mg/dL (2.5-4.9); POTASSIUM 3.1 mmol/L (3.5-5.1)
--- NOTE | 2020-03-01 07:19 | NUR ---
RN NOTE AWAITING CALL BACK FROM DR. WEAVER REGARDING CRITICAL LAB RESULT. NOTIFIED MORNING BRIANNA JOHNSON FOR FOLLOW UP.
--- NOTE | 2020-03-01 07:31 | NUR ---
COAL WHEELER NOTE PATIENT IN BED WITH TRACH TO VENT SETTINGS ORDERED ,NONVERBAL WITH OPEN EYES, ON TELE MONITOR SR HR 89 , WITH LT NEPHROSTOMY WITH YELLOW COLOR URINE NOTED AND DAVIDOSN CATH TO GRAVITY WITH YELLOW COLOR URINE , SATURATION AT THIS TIME 96% , ON G TUBE FEEDING ORDERED ,NO RESIDUAL NOTED AT THIS TIME , KEEP HOB ELEVATED AT ALL TIME , LT FEMORAL PICC LINE IN PLACED,LT CHEST HD IN PLACE, BED IN LOWEST AND LOCKED POSITION, SAFETY MEASURE OBSERVED, WILL CONT TO MONITOR
[2020-03-01] MEDS: LEVETIRACETAM SOL (5 ML) 100 MG/ML UDC GT SCH ×2 (08:07→21:08)
[2020-03-01] MEDS: MEROPENEM 500 MG in IV NS 0.9% 50 ML IV SCH ×2 (08:07→21:13)
[2020-03-01] MEDS: DOCUSATE SODIUM LIQ 100 MG/10 ML UDC GT SCH (08:07)
[2020-03-01] MEDS: SENNOSIDES 8.6 MG TABLET GT SCH ×2 (08:08→21:07)
[2020-03-01] MEDS: OXCARBAZEPINE 150 MG TABLET GT SCH ×2 (08:08→21:08)
[2020-03-01] MEDS: SIMETHICONE 80 MG TAB.CHEW GT SCH ×2 (08:08→21:08)
[2020-03-01] MEDS: ACIDOPHILUS/BULGARICUS 1 EACH TAB.CHEW GT SCH ×2 (08:08→16:07)
[2020-03-01] MEDS: MULTIVIT W/MINERALS 1 TAB TABLET GT SCH (08:09)
--- NOTE | 2020-03-01 08:17 | NUR ---
RT NOTE Pt rec'd trached on mech vent on AC mode on noted settings as charted. Pt shows no signs of resp distress or sob. Trach is patent and secured. Pt sx'd for thick mod amt of pale yellow secretions. Alarms are set and audible. ambu bag and emergency spare trach bedside. Vent plugged into red outlet. Will continue to monitor.
[2020-03-01] MEDS: Z GUARD REMEDY 2 OZ OINT TP SCH ×2 (08:23→21:08)
[2020-03-01] MEDS: CLOTRIMAZOLE 1% 15 GM TUBE TP SCH ×2 (08:23→16:08)
--- NOTE | 2020-03-01 09:19 | NUR ---
paged re; hgb 6.9 hct 21 potassium 3.1 waiting for returning call back
--- NOTE | 2020-03-01 10:00 | NUR ---
PERSONAL COMPUTER NETWORK ANALYST NOTE DR FLORES AT BEDSIDE NOTIFIED THAT K 3.1 AND HG 6.9 Addendum: 03/01/20 at 1041 by ELIZABETH VÁSQUEZ RN NO NEW ORDER GIVEN ABOUT HG 6.9 K 3.1
--- NOTE | 2020-03-01 10:31 | NUR ---
telephone assembler note called to dr torres Left a message about hg 6.9AND K 3.1 WILL AWAIT FOR RETURN CALL
[2020-03-01] MEDS ORDERED: POTASSIUM CHLORIDE 20 MEQ POWDER PACKET GT ONE (11:00)
[2020-03-01] MEDS ORDERED: POTASSIUM CHLORIDE 20 MEQ TAB.PRT.SR PO ONE (11:00)
--- NOTE | 2020-03-01 11:30 | NUR ---
senior telecommunications consultant note spoke with adab rn [employer] combination teacher notified that hg 6.9 and abdomen still distended will f\u
--- NOTE | 2020-03-01 11:51 | NUR ---
telephone recorder note on hd at this time called to dr anderson about hg 6.9 awaiting for return call
--- NOTE | 2020-03-01 12:27 | NUR ---
RANGE AIDE NOTE SPOKE WITH DR WEAVER NOTIFIED THAT H 6.9 WITH ORDER TO GIVE 1 UNIT PRBC WITH HD TO DAY ,WILL F\U
--- NOTE | 2020-03-01 12:42 | NUR ---
telehealth coordinator note i unit prbc started to transfuse by hd nurse as ordered
[2020-03-01 13:04] LABS: EOSINOPHILS % (MANUAL) 8 % (0-4); LYMPHOCYTES % (MANUAL) 13 % (16-48); MONOCYTES % (MANUAL) 6 % (0-11.0); MYELOCYTES % 3 % (0-0); NEUTROPHILS % (MANUAL) 70 (42-76)
--- NOTE | 2020-03-01 13:19 | NUR ---
telecommunications facility examiner note hd completed, no fluids out , bp 137/78 i unit prbc transfused by hd nurse , not in distress ,will cont to monitor Addendum: 03/01/20 at 1445 by ELIZABETH VÁSQUEZ RN made a bm ,keep clean dry
--- NOTE | 2020-03-01 16:00 | NUR ---
SHIP'S SURVEYOR NOTE RT AT BEDSIDE TRACH CARE DONE, WILL CONT TO MONITOR
[2020-03-01] MEDS: METOCLOPRAMIDE HCL 10 MG/2 ML VIAL IV SCH (16:07)
--- NOTE | 2020-03-01 18:41 | NUR ---
HOUSETRAILER SERVICER NOTE ROUND MADE,ALL NEEDS ATTENDED, WITH TRACH TO VENT SETTING ORDERED ,ON GTUBE FEEDING TOLERATED. KEEP HOB ELEVATED AT ALL TIME , WILL CONT TO MONITOR CLOSELY
--- NOTE | 2020-03-01 19:16 | NUR ---
RN OPENING NOTES PT TOLERATING VENT SETTINGS WELL. PT RESPONSIVE TO NAME. GT PATENT BUT NOTED WITH > 100ML OF GASTRIC RESIDUAL. FLUSHED AND HELD TUBE FEEDING. DAVIDSON CATHETER PATENT AND IN PLACE DRAINING CLEAR YELLOW URINE. WITH LEFT NEPHROSTOMY DRAINING CLEAR YELLOW DRAINAGE. SR ON THE TELE MONITOR. LEFT FEMORAL PICC LINE INTACT AND FLUSHING WELL WITHOUT SIGNS OF COMPLICATIONS NOTED AT SITE. SAFETY MEASURES IN PLACE, WILL MONITOR.
[2020-03-01] MEDS: ASCORBIC ACID 500 MG TABLET GT SCH (21:07)
[2020-03-01] MEDS: INSULIN GLARGINE, 100 UNIT/ML CARTRIDGE SQ SCH (21:11)
--- NOTE | 2020-03-01 21:13 | NUR ---
RN NOTE GT NOTED WITH LESS THAN 10ML OF RESIDUAL. TUBE FEEDING RESUMED AT 35ML/HOUR. WILL ADVANCE TOLERATED.
[2020-03-02] VITALS: BP 128/71
[2020-03-02] MEDS: ALBUTEROL FS 2.5 MG/3 ML VIAL.NEB IH SCH ×4 (01:42→19:27)
[2020-03-02] MEDS: METOCLOPRAMIDE HCL 10 MG/2 ML VIAL IV SCH ×3 (01:44→16:22)
[2020-03-02 04:00] VITALS: BP 140/76
--- NOTE | 2020-03-02 04:00 | NUR ---
RN NOTE BED BATH AND AM CARE COMPLETED. PT TOLERATED WELL. GT FEEDING AT 35ML/HOUR TOLERATED.
[2020-03-02] MEDS: NEPRO 1,000 ML BOTTLE GT PRN (04:11)
[2020-03-02] MEDS: GABAPENTIN 300 MG CAPSULE GT SCH ×3 (05:08→21:32)
[2020-03-02] MEDS: PANTOPRAZOLE 40 MG/PACK PACK GT SCH (05:08)
[2020-03-02] MEDS: BLOOD SUGAR DIAGNOSTIC 1 EACH STRIP IN SCH ×3 (05:52→17:26)
--- NOTE | 2020-03-02 06:57 | NUR ---
RN CLOSING NOTES PT SLEEPING IN BED BUT EASILY AROUSABLE TO VERBAL AND TACTILE STIMULI. PT TOLERATING VENT SETTINGS WELL. GT PATENT AND FLUSHED. TUBE FEEDING CURRENTLY RUNNING AT 35ML/HOUR TOLERATED. DAVIDSON CATHETER PATENT AND IN PLACE DRAINING CLEAR YELLOW URINE. WITH LEFT NEPHROSTOMY DRAINING CLEAR YELLOW DRAINAGE. SR ON THE TELE MONITOR. LEFT FEMORAL PICC LINE INTACT AND FLUSHING WELL WITHOUT SIGNS OF COMPLICATIONS NOTED AT SITE. ALL NEEDS MET AND ATTENDED TO, ALL DUE MEDICATIONS ADMINISTERED, SAFETY MEASURES IN PLACE, ENDORSED TO MORNING RN FOR CONTINUATION OF CARE.
--- NOTE | 2020-03-02 07:00 | NUR ---
RN NOTES RECEIVED PT ON BED, EASILY AROUSABLE TO VERBAL AND TACTILE STIMULI.TOLERATING CURRENT VENT SETTING WELL, NO DISTRESS NOTED , ON TELE SR HR IN 70'S , TF AT 35CC/HR RUNNING VIA GT AT 35CC/HR , DAVIDSON CATHETER PATENT AND IN PLACE DRAINING CLEAR YELLOW URINE. WITH LEFT NEPHROSTOMY DRAINING CLEAR YELLOW DRAINAGE. LEFT FEMORAL PICC LINE INTACT , SITE CLEAN, DRY AND INTACT, SR UP x3, CALL LIGHT WITHIN EASY REACH, SAFETY MEASURES IN PLACE,BED LOCKED AND IN LOWEST POSITION, CONTINUE TO MONITOR.
[2020-03-02 07:24] LABS: BASOPHILS # (AUTO) 0.1 /CMM (0.0-0.2); BASOPHILS % (AUTO) 0.7 % (0.0-2.0); EOSINOPHILS % (AUTO) 3.5 % (0.0-6.0); HEMATOCRIT 27 % (33-45); HEMOGLOBIN 8.9 g/dL (11.5-14.8); LYMPHOCYTES # (AUTO) 1.4 /CMM (0.8-4.8); LYMPHOCYTES % (AUTO) 12.4 % (20.0-44.0); MEAN CORPUSCULAR HGB CONC 33 g/dl (31.0-36.0); MEAN CORPUSCULAR VOLUME 97 fL (82-100); MONOCYTES # (AUTO) 0.6 /CMM (0.1-1.30); NEUTROPHILS # (AUTO) 8.8 /CMM (1.8-8.9); NEUTROPHILS % (AUTO) 78.4 % (43.0-81.0); PLATELET COUNT (AUTO) 274 /CMM (150-450); WHITE BLOOD COUNT (AUTO) 11.2 K/uL (4.3-11.0)
[2020-03-02 07:37] LABS: CALCIUM, SERUM 9.8 mg/dL (8.5-10.1); CREATININE 2.2 mg/dL (0.6-1.3); POTASSIUM 3.8 mmol/L (3.5-5.1)
[2020-03-02 08:00] VITALS: BP 152/74
[2020-03-02] MEDS: LEVETIRACETAM SOL (5 ML) 100 MG/ML UDC GT SCH ×2 (08:27→21:32)
[2020-03-02] MEDS: OXCARBAZEPINE 150 MG TABLET GT SCH ×2 (08:27→21:32)
[2020-03-02] MEDS: MULTIVIT W/MINERALS 1 TAB TABLET GT SCH (08:27)
[2020-03-02] MEDS: SIMETHICONE 80 MG TAB.CHEW GT SCH ×2 (08:27→21:31)
[2020-03-02] MEDS: DOCUSATE SODIUM LIQ 100 MG/10 ML UDC GT SCH (08:27)
[2020-03-02] MEDS: SENNOSIDES 8.6 MG TABLET GT SCH ×2 (08:27→21:31)
[2020-03-02] MEDS: ACIDOPHILUS/BULGARICUS 1 EACH TAB.CHEW GT SCH ×2 (08:27→16:22)
[2020-03-02] MEDS: CLOTRIMAZOLE 1% 15 GM TUBE TP SCH ×2 (08:29→16:23)
[2020-03-02] MEDS: Z GUARD REMEDY 2 OZ OINT TP SCH ×2 (08:29→21:32)
[2020-03-02 09:34] LABS: BAND % (MANUAL) 5 % (0.0-5.0); EOSINOPHILS % (MANUAL) 4 % (0-4); LYMPHOCYTES % (MANUAL) 14 % (16-48); MONOCYTES % (MANUAL) 1 % (0-11.0); NEUTROPHILS % (MANUAL) 76 (42-76)
[2020-03-02 12:00] VITALS: BP 153/72
--- NOTE | 2020-03-02 12:00 | NUR ---
RN NOTES VSS STABLE, CONTINUE TO MONITOR .
[2020-03-02 16:00] VITALS: BP 150/74
--- NOTE | 2020-03-02 18:00 | NUR ---
RN NOTES NO SIGNIFICANT CHANGES NOTED ON THIS SHIFT, TRACH CARE AND SUCTIONING DONE PRN, NEPHROSTOMY AND DAVIDSON DRAINING TO GRAVITY, TF AT 40CC/HR RUNNING , NO RESIDUAL NOTED, SR UP x3, CALL LIGHT WITHIN EASY REACH, BED LOCKED AND IN LOWEST POSITION, WILL ENDORSE TO OBSERVER HELPER NURSE FOR CONTINUITY OF CARE.
--- NOTE | 2020-03-02 19:31 | NUR ---
RN OPENING NOTES: Rec'd pt in bed, nonverbal but opens eyes. On vent/trach tolerating settings well. No SOB or resp distress noted at this time. SR on tele monitor. Left nephrostomy noted. GT patent and flushed. Minimal residual noted. Nepro infusing at 40ml/hr, tolerating well. Left chest HD cath noted. L fem PICC line patent and flushed. Dressing c/d/i with TKO infusing. Bourgeois cath in place patent and draining urine via gravity. Safety measures in place. Will continue to monitor.
[2020-03-02 20:00] VITALS: BP 131/71
[2020-03-02] MEDS: ASCORBIC ACID 500 MG TABLET GT SCH (21:32)
[2020-03-02] MEDS: INSULIN GLARGINE, 100 UNIT/ML CARTRIDGE SQ SCH (21:46)
[2020-03-03] VITALS: BP 145/74
[2020-03-03] MEDS: METOCLOPRAMIDE HCL 10 MG/2 ML VIAL IV SCH ×2 (00:07→08:21)
[2020-03-03] MEDS: BLOOD SUGAR DIAGNOSTIC 1 EACH STRIP IN SCH ×3 (00:12→11:39)
[2020-03-03] MEDS: ALBUTEROL FS 2.5 MG/3 ML VIAL.NEB IH SCH ×3 (01:03→14:11)
[2020-03-03 04:00] VITALS: BP 159/84
--- NOTE | 2020-03-03 04:00 | NUR ---
RN NOTE: No residual noted when checked GT. Increased GTF to goal rate of 45ml/hr. Will continue to monitor.
[2020-03-03] MEDS: PANTOPRAZOLE 40 MG/PACK PACK GT SCH (05:35)
[2020-03-03] MEDS: GABAPENTIN 300 MG CAPSULE GT SCH ×2 (05:35→14:02)
[2020-03-03] MEDS: NEPRO 1,000 ML BOTTLE GT PRN (06:42)
--- NOTE | 2020-03-03 06:51 | NUR ---
RN CLOSING NOTES: Pt remains in stable condition throughout shift. On trach and mechanical ventilation tolerating settings well. No SOB or resp distress noted throughout shift. No acute distress noted throughout shift. SR on tele monitor. Left chest HD cath in place. Left nephrostomy intact and draining. Bourgeois cath in place patent and draining urine. GT site patent and flushed w/ 10cc residual noted. Nepro infusing at 45ml/hr, tolerating well. Left femoral PICC line patent and flushed. Dressing c/d/i. All due meds given as administered. Kept clean/dry. Safety measures in place. Will endorse to AM nurse for WHIT.
[2020-03-03 08:00] VITALS: BP 118/72
[2020-03-03] MEDS: DOCUSATE SODIUM LIQ 100 MG/10 ML UDC GT SCH (08:21)
[2020-03-03] MEDS: ACIDOPHILUS/BULGARICUS 1 EACH TAB.CHEW GT SCH (08:21)
[2020-03-03] MEDS: OXCARBAZEPINE 150 MG TABLET GT SCH (08:21)
[2020-03-03] MEDS: SIMETHICONE 80 MG TAB.CHEW GT SCH (08:21)
[2020-03-03] MEDS: MULTIVIT W/MINERALS 1 TAB TABLET GT SCH (08:21)
[2020-03-03] MEDS: CLOTRIMAZOLE 1% 15 GM TUBE TP SCH (08:22)
[2020-03-03] MEDS: Z GUARD REMEDY 2 OZ OINT TP SCH (08:29)
[2020-03-03] MEDS: SENNOSIDES 8.6 MG TABLET GT SCH (08:35)
[2020-03-03] MEDS: LEVETIRACETAM SOL (5 ML) 100 MG/ML UDC GT SCH (08:53)
--- NOTE | 2020-03-03 10:43 | NUR ---
Pt was received in bed awake but no response to verbal stimuli and does not follow commands. ET tube to vent on AC as ordered. Appears comfortable, tolerating TF at 45 cc/hr., no residual noted this am. Bourgeois is patent with clear yellow urine, HD cath and PICC lines are intact. Oral and back care done. Sacral dressing is dry and clean, will change as ordered. Addendum: 03/03/20 at 1810 by RADHA DRAPER RN Pt was turned and repositioned regularly. Had HD at bedside and took out 1L. Had a big bowel movement, changed the nephrostomy dressing and the wound sacral dressing as ordered. 1700 pt was transferred back to [facility] via bed with RT and SELMA Treviño. Gave report to Matheus REED.
[2020-03-03] MEDS: INSULIN REGULAR, HUMAN 100 UNIT/ML 3 ML VIAL SQ PRN (11:40)
[2020-03-03 12:00] VITALS: BP 124/68
== END 2020-03-03 17:04 | DRG 981 ==
LOC: EDSEX 15:51 → ICU 15:51 → TELE1 02-24 14:16
PROVIDERS: ADMIT Nurse Practitioner Acute Care; ATTEND Internal Medicine
PROC: 5A1955Z Respiratory Ventilation, Greater than 96 Consecutive Hours (ICD-10-PCS; principal; 2020-02-21)
PROC: 06HN33Z Insertion of Infusion Device into Left Femoral Vein, Percutaneous Approach (ICD-10-PCS; 2020-02-21)
PROC: B54CZZA Ultrasonography of Left Lower Extremity Veins, Guidance (ICD-10-PCS; 2020-02-21)
PROC: 0DTJ4ZZ Resection of Appendix, Percutaneous Endoscopic Approach (ICD-10-PCS; 2020-02-22)
PROC: 30233N1 Transfusion of Nonautologous Red Blood Cells into Peripheral Vein, Percutaneous Approach (ICD-10-PCS; 2020-02-22)
PROC: 05H633Z Insertion of Infusion Device into Left Subclavian Vein, Percutaneous Approach (ICD-10-PCS; 2020-02-23)
PROC: 5A1D70Z Performance of Urinary Filtration, Intermittent, Less than 6 Hours Per Day (ICD-10-PCS; 2020-02-23)
DX: T83.518A Infection and inflammatory reaction due to other urinary catheter, initial encounter (principal); A41.9 Sepsis, unspecified organism; J15.6 Pneumonia due to other Gram-negative bacteria; N18.6 End stage renal disease; G92 Toxic encephalopathy; N39.0 Urinary tract infection, site not specified; Z99.11 Dependence on respirator [ventilator] status; J96.11 Chronic respiratory failure with hypoxia; N17.9 Acute kidney failure, unspecified; E22.2 Syndrome of inappropriate secretion of antidiuretic hormone; K56.7 Ileus, unspecified; M62.82 Rhabdomyolysis; K35.30 Acute appendicitis with localized peritonitis, without perforation or gangrene; E11.22 Type 2 diabetes mellitus with diabetic chronic kidney disease; D64.9 Anemia, unspecified; E78.5 Hyperlipidemia, unspecified; B96.89 Other specified bacterial agents as the cause of diseases classified elsewhere; E83.41 Hypermagnesemia; E83.39 Other disorders of phosphorus metabolism; E87.6 Hypokalemia; F09 Unspecified mental disorder due to known physiological condition; G40.909 Epilepsy, unspecified, not intractable, without status epilepticus; I25.10 Atherosclerotic heart disease of native coronary artery without angina pectoris; K21.9 Gastro-esophageal reflux disease without esophagitis; I12.9 Hypertensive chronic kidney disease with stage 1 through stage 4 chronic kidney disease, or unspecified chronic kidney disease; Z87.440 Personal history of urinary (tract) infections; Z93.6 Other artificial openings of urinary tract status; T42.1X5A Adverse effect of iminostilbenes, initial encounter; Y92.89 Other specified places as the place of occurrence of the external cause; Y95 Nosocomial condition; D63.8 Anemia in other chronic diseases classified elsewhere; R13.10 Dysphagia, unspecified; N20.0 Calculus of kidney; Z79.4 Long term (current) use of insulin; Z79.899 Other long term (current) drug therapy; Z79.51 Long term (current) use of inhaled steroids; N18.3 Chronic kidney disease, stage 3 (moderate); N13.9 Obstructive and reflux uropathy, unspecified; Y84.6 Urinary catheterization as the cause of abnormal reaction of the patient, or of later complication, without mention of misadventure at the time of the procedure
CPT/HCPCS: 31720; 36415; 36569; 36600; 70450-TC; 71045-TC; 74018; 74250-TC; 80048-TC; 80053-TC; 80061-TC; 81000-TC; 82272-TC; 82803-TC; 82962-TC; 83540-TC; 83735-TC; 84100-TC; 84443-TC; 84703-TC; 85025-TC; 86706; 86850-TC; 87040-TC; 87081-TC; 87086-TC; 87340; 90935-TC; 94002-TC; 94003-TC; 94760-TC; 94762-TC; 94799-TC; A4216; A4623; A6253; A6403; A7526; C1750; C1751; G0378; J0696; J0885; J1815; J1953; J2185; J2765; J7030; J7040; J7050; J7060; J8597; P9016-BL; P9047; Q9963

== ENCOUNTER 2020-03-28 18:04 | Inpatient (IN) | payer MEDICARE, OTHER ==
[~2020-03-28] VITALS: Ht 170.2 cm; Wt 76.7 kg
[2020-03-28] VITALS (13 sets, daily range): BP systolic 90–121; BP diastolic 41–63
--- NOTE | 2020-03-28 18:00 | NUR ---
GENERAL ROAD SUPERVISOR INITIAL NOTE RECEIVED REPORT FROM SUBACUTE RN NURSE SID. PER REPORT PATIENTS USUAL MENTALS STATUS IS AWAKE AND FOLLOWS SIMPLE COMMANDS. TODAY PATIENT WAS FOUND MORE ALTERED. RECEIVED PATIENT VIA BED, NO RESPIRATORY DISTRESS NOTED. PATIENT VENT DEPENDENT AC 12, TV 500, FIO2 40%, PEEP 5. TRACH C/D/I. GT PATENT, INTACT, IN PLACE CLAMPED. F/C PATENT AND DRAINING BY GRAVITY. ON TELE MONITOR SR. LEFT NEPHROSTOMY NOTED. SKIN ASSESSMENT DONE. HOB ELEVATED. SIDE RAILS UP AND LOCKED. BED KEPT AT LOWEST POSITION. WILL ENDORSE CONTINUITY OF CARE TO PM NURSE.
--- NOTE | 2020-03-28 18:00 | NUR ---
Pt transferred to ICU 259 for sepsis. Vent is plugged into red outlet. Alarms are set and audible. Betsy is secure and patent. Bmmamadou and karlie fried @ [facility]. Will endorse to night nurse RT. Addendum: 03/28/20 at 1821 by JULIETH REY RT Amended: Links added.
[~2020-03-28 18:04] MED LIST changes: -EPOE1VIA6 SQ; +EPOE4000 SQ; +GABA300C GT; -GABA600T12 GT; -Linezolid GT; -MERO500V21 IV; -NORM10004 IV; -NUT.237L30 GT; +NUT.237L67 GT; -ONDA-97 GT
[2020-03-28] MEDS ORDERED: POLY17PO4 GT (18:15)
[2020-03-28] MEDS ORDERED: AMIN887L GT (18:15)
[2020-03-28] MEDS ORDERED: ONDA4TAB5 GT (18:15)
[2020-03-28] MEDS ORDERED: FOLI0.8T2 GT (18:15)
[2020-03-28] MEDS ORDERED: LORA2VIA11 IVP (18:15)
[2020-03-28] MEDS ORDERED: POLYETHYLENE GLYCOL 3350 17 GM POWD.PACK GT PRN (18:30)
[2020-03-28] MEDS ORDERED: DEXTROSE 50%-WATER 50 ML DISP.SYRIN IV PRN ×2 (18:30→19:30)
[2020-03-28] MEDS ORDERED: ACETAMINOPHEN 650 MG/20.3 ML UDC GT PRN (18:30)
[2020-03-28] MEDS ORDERED: ONDANSETRON HCL/PF 4 MG/2 ML VIAL IV PRN (18:30)
[2020-03-28] MEDS ORDERED: Medication Not On Formulary EA (Ondansetron Hcl (Zofran) 4 MG) GT PRN (18:30)
[2020-03-28] MEDS ORDERED: NEPRO VAN 237 ML CAN GT SCH (18:30)
[2020-03-28] MEDS ORDERED: LORAZEPAM INJ 2 MG/ML VIAL IVP PRN (18:30)
[2020-03-28] MEDS ORDERED: BISACODYL SUPP (10 MG) 10 MG/SUPP.RECT SUPP.RECT RC PRN (18:30)
[2020-03-28] MEDS ORDERED: MAGNESIUM HYDROXIDE 30 ML UDC PO PRN (18:30)
[2020-03-28] MEDS ORDERED: LORAZEPAM 1 MG TABLET GT PRN (18:30)
[2020-03-28] MEDS ORDERED: Z GUARD REMEDY 2 OZ OINT TP PRN (18:30)
--- NOTE | 2020-03-28 19:05 | NUR ---
SWEATER OPERATOR NOTE RECEIVED PATIENT IN BED RESTING WITH HOB ELEVATED. PATIENT IS LETHARGIC AT THIS TIME, VENT DEPENDANT. BREATHING IS EVEN AND UNLABORED, NO SOB NOTED AT THIS TIME. AFEBRILE. DNR CODE STATUS. PATIENT ON DAVIDSON CATH, URINE IS YELLOW IN COLOR, NOTED WITH SEDIMENTS. PATIENT ALSO HAS LEFT NEPHROSTOMY, DRAINAGE IS YELLOW WITH SEDIMENTS NOTED. GT IS CLAMPED. IV SITE ON LEFT FEMORAL IS CLEAN, DRY, AND PATENT. HD CATH ON LEFT CHEST WALL. PER REPORT, PATIENT HAS WOUNDS ON SACRAL AREA, WOUND DRESSING REINFORCED. BILATERAL UPPER AND LOWER EXTREMITIES ARE FLACCID. VITALS WNL AT THIS TIME. AWAITING FOR 1 UNIT PRBC TO INFUSE. WILL CONTINUE TO MONITOR.
[2020-03-28] MEDS ORDERED: VANCOMYCIN 1.25 GM in IV D5W 250 ML IV ONE (19:30)
[2020-03-28] MEDS: ALBUTEROL FS 2.5 MG/3 ML VIAL.NEB IH SCH (19:35)
[2020-03-28] MEDS: MEROPENEM 500 MG in IV NS 0.9% 50 ML IV SCH (19:39)
[2020-03-28] MEDS ORDERED: Z GUARD REMEDY 2 OZ OINT TP SCH (21:00)
[2020-03-28] MEDS: NEPRO 1,000 ML BOTTLE GT PRN (21:00)
[2020-03-28] MEDS ORDERED: BLOOD SUGAR DIAGNOSTIC 1 EACH STRIP IN SCH (21:00)
[2020-03-28] MEDS: FERROUS SULFATE UDC 300 MG/5 ML UDC GT SCH (21:08)
[2020-03-28] MEDS: GABAPENTIN 300 MG CAPSULE GT SCH (21:09)
[2020-03-28] MEDS: OXCARBAZEPINE 150 MG TABLET GT SCH (21:09)
[2020-03-28] MEDS: SIMETHICONE SUSP 40 MG/0.6 ML BOTTLE GT SCH (21:09)
[2020-03-28] MEDS: LEVETIRACETAM SOL (5 ML) 100 MG/ML UDC GT SCH (21:09)
[2020-03-28] MEDS: SENNOSIDES 8.6 MG TABLET GT SCH (21:09)
[2020-03-28] MEDS: BLOOD SUGAR DIAGNOSTIC 1 EACH STRIP VI SCH (21:39)
[2020-03-28] MEDS: *INSULIN REGULAR(HUMULIN R)HUM 100 UNIT/ML VIAL SQ PRN (21:42)
[2020-03-29] VITALS (48 sets, daily range): BP systolic 91–160; BP diastolic 40–82
[2020-03-29] MEDS: METOCLOPRAMIDE HCL 10 MG/10 ML UDC GT SCH ×5 (00:01→23:24)
[2020-03-29] MEDS: ALBUTEROL FS 2.5 MG/3 ML VIAL.NEB IH SCH ×4 (01:17→20:29)
--- NOTE | 2020-03-29 02:15 | NUR ---
TELLER MANAGER NOTE 1 UNIT PRBC INFUSED WITH NO ADVERSE REACTION NOTED. WILL CONTINUE TO MONITOR.
--- NOTE | 2020-03-29 03:30 | NUR ---
TIRE REPAIRER NOTE PATIENT TOLERATED BED BATH WELL AT THIS TIME. WOUND CARE RENDERED. NO BM NOTED. URINE SPECIMEN COLLECTED FROM DAVIDSON CATH PORT AND LEFT NEPHROSTOMY AND SENT TO LAB. WILL CONTINUE TO MONITOR.
[2020-03-29] MEDS: GABAPENTIN 300 MG CAPSULE GT SCH ×3 (05:07→21:45)
[2020-03-29] MEDS: PANTOPRAZOLE 40 MG/PACK PACK GT SCH (05:07)
[2020-03-29] MEDS: MEROPENEM 500 MG in IV NS 0.9% 50 ML IV SCH ×2 (06:14→21:28)
[2020-03-29 06:50] LABS: BASOPHILS % (AUTO) 0.1 % (0.0-2.0); EOSINOPHILS % (AUTO) 0.8 % (0.0-6.0); HEMATOCRIT 22 % (33-45); HEMOGLOBIN 7.3 g/dL (11.5-14.8); MEAN CORPUSCULAR HGB CONC 33 g/dl (31.0-36.0); MEAN CORPUSCULAR VOLUME 96 fL (82-100); MONOCYTES # (AUTO) 2.9 /CMM (0.1-1.30); MONOCYTES % (AUTO) 8.8 % (2.0-12.0); NEUTROPHILS # (AUTO) 28.5 /CMM (1.8-8.9); NEUTROPHILS % (AUTO) 87.3 % (43.0-81.0); PLATELET COUNT (AUTO) 156 /CMM (150-450); RED BLOOD CELL COUNT(AUTO) 2.28 MIL/uL (4.0-5.2)
--- NOTE | 2020-03-29 06:53 | NUR ---
INFORMATICS APPLICATION ANALYST NOTE PATIENT REMAINED STABLE THROUGHOUT THE NIGHT. PATIENT IS S/P 1 UNIT PRBC TRANSFUSION. VITALS WNL. PATIENT IS KEPT CLEAN, DRY, AND COMFORTABLE. REPOSITIONED Q2H. WILL ENDORSE TO AM SHIFT RN FOR CONTINUATION OF CARE.
[2020-03-29 07:13] LABS: WHITE BLOOD COUNT (AUTO) 32.6 K/uL (4.3-11.0)
[2020-03-29 07:39] LABS: CALCIUM, SERUM 10.2 mg/dL (8.5-10.1); CREATININE 4.4 mg/dL (0.6-1.3); POTASSIUM 4.3 mmol/L (3.5-5.1)
--- NOTE | 2020-03-29 08:15 | NUR ---
SPOOL HAULER NOTE CALLED LAB TO RECEIVE RESULTS FOR COVID TEST THAT WAS DONE ON 03/26. WITH RESULT NEGATIVE.
[2020-03-29] MEDS ORDERED: PROSTAT (PYXIS) 30 ML UDC GT SCH (09:00)
[2020-03-29] MEDS: BLOOD SUGAR DIAGNOSTIC 1 EACH STRIP VI SCH ×4 (09:02→21:56)
[2020-03-29] MEDS: DOCUSATE SODIUM LIQ 100 MG/10 ML UDC GT SCH (09:08)
[2020-03-29] MEDS: ACIDOPHILUS/BULGARICUS 1 EACH TAB.CHEW GT SCH ×2 (09:08→17:12)
[2020-03-29] MEDS: ASCORBIC ACID 500 MG TABLET GT SCH (09:09)
[2020-03-29] MEDS: FERROUS SULFATE UDC 300 MG/5 ML UDC GT SCH ×2 (09:09→21:44)
[2020-03-29] MEDS: VIT B CMPLX 3/FA/VIT C/BIOTIN 1 TAB TABLET GT SCH (09:10)
[2020-03-29] MEDS: SENNOSIDES 8.6 MG TABLET GT SCH ×2 (09:10→21:45)
[2020-03-29] MEDS: LEVETIRACETAM SOL (5 ML) 100 MG/ML UDC GT SCH ×2 (09:10→21:45)
[2020-03-29] MEDS: OXCARBAZEPINE 150 MG TABLET GT SCH ×2 (09:10→21:44)
[2020-03-29] MEDS: SIMETHICONE SUSP 40 MG/0.6 ML BOTTLE GT SCH ×2 (09:15→21:45)
[2020-03-29] MEDS: INSULIN REGULAR, HUMAN 100 UNIT/ML 3 ML VIAL SQ PRN ×3 (09:16→17:14)
--- NOTE | 2020-03-29 09:59 | NUR ---
CHAMBER OF [employer]ER[employer] DIVISION MANAGER NOTE RECEIVED ORDER FROM DR FLORES TO HAVE PICC LINE PLACED ON PATIENTS UPPER EXTREMITY AND REMOVE LINE FROM PATIENTS LEG. ALSO RECEIVED ORDER FOR KERLINE DE LA TORRE DR REGARDING PROTOCOL FOR C.DIFF, HE WOULD LIKE TO BYPASS THE PROTOCOL.
[2020-03-29 10:31] LABS: BAND % (MANUAL) 4 % (0.0-5.0); LYMPHOCYTES % (MANUAL) 1 % (16-48); MONOCYTES % (MANUAL) 10 % (0-11.0); MYELOCYTES % 1 % (0-0); NEUTROPHILS % (MANUAL) 84 (42-76)
[2020-03-29] MEDS ORDERED: PROSOURCE / PROSTAT (PYXIS) 30 ML UDC GT SCH (11:00)
--- NOTE | 2020-03-29 11:08 | NUR ---
AIRCRAFT GENERAL REPAIR MECHANIC NOTE RECEIVED CALL FROM WEIGHT TRAINER WITH RECOMMENDATIONS TO CONTINUE WITH GT AT 30ML/HR AND TO CHANGE PROSTAT FREQUENCY TO THREE TIMES A DAY.
[2020-03-29] MEDS: PROSOURCE / PROSTAT (PYXIS) 30 ML UDC GT SCH ×2 (12:00→17:12)
--- NOTE | 2020-03-29 18:27 | NUR ---
TANK HOOP BENDER NOTE RELAYED BLOOD CULTURE RESULT TO [facility] NURSE AT BEDSIDE. NOTIFIED DR ADKINS REGARDING PATIENT BP 95/55 PRIOR TO DIALYSIS. REQUESTED WITH ORDERS FOR LEVOPHED
[2020-03-29] MEDS ORDERED: NOREPINEPHRINE 32 MG in IV NS 0.9% 218 ML IV PRN (18:30)
[2020-03-29] MEDS ORDERED: VANCOMYCIN 500 MG in IV D5W 100 ML IV PRN (19:30)
--- NOTE | 2020-03-29 19:30 | NUR ---
JAVA CORE DEVELOPER. DIALYSIS GOING ON. BP WAS LOW LEVOPHED STARTED.WILL CONTINUE TO MONITOR
--- NOTE | 2020-03-29 19:34 | NUR ---
OCULAR CARE AIDE CLOSING NOTE PATIENT WITH ONGOING DIALYSIS. NO DISTRESS NOTED. TOLERATING CURRENT VENT SETTINGS AC 12, TV 500, FIO2 40%, PEEP 0. ON TELE MONITOR SR. WITH F/C DRAINING BY GRAVITY. LEFT NEPHROSTOMY TUBE IN PLACE AND DRAINING BY GRAVITY. GT PATENT, INTACT, IN PLACE. NO RESIDUALS NOTED. PATIENT KEPT CLEAN AND DRY. TURNED AND REPOSITIONED. HOB ELEVATED SIDE RAILS UP AND LOCKED. PENDING PICC LINE PLACEMENT. CONTINUITY OF CARE ENDORSED TO PM NURSE.
--- NOTE | 2020-03-29 20:37 | NUR ---
BEARING INSPECTOR.INITIAL ASSESSMENT. RECEIVED THE PT REST ON THE BED. TRACH TO VENT CONNECTED. SETTINGS SHILEY XLT*.AC 12.TV 500, FIO2 40%. SAT 98%. STOCK PATCH SAWYER SHOWING NSR. IV LT CHEST WALL HD CATH, LT THIGH PICC LINE. LEVOPHED 0.1MCG/KG/MIN, FC AND NEPHROSTOMY TUBE INTACT, WILL CONTINUE TO MONITOR VITALS.
--- NOTE | 2020-03-29 20:40 | NUR ---
CATALOG SPECIALIST, BLOOD CULTURE SEND TO LAB. HD NURSE COLLECTED THE SPECIMEN
--- NOTE | 2020-03-29 21:32 | NUR ---
agricultural agent. hd done. 1300 fluids removed, during hd no complication noted.. s/p vancomycin not given. vanco level was high. pharmacy made aware
[2020-03-29] MEDS: *INSULIN REGULAR(HUMULIN R)HUM 100 UNIT/ML VIAL SQ PRN (21:56)
--- NOTE | 2020-03-29 21:57 | NUR ---
agricultural research technologist. all meds scanned
[2020-03-29] MEDS: NEPRO 1,000 ML BOTTLE GT PRN (22:10)
[2020-03-30] VITALS (59 sets, daily range): BP systolic 91–135; BP diastolic 37–95
--- NOTE | 2020-03-30 | NUR ---
agricultural commodities inspector. no changes, will continue to monitor
[2020-03-30] MEDS: ALBUTEROL FS 2.5 MG/3 ML VIAL.NEB IH SCH ×4 (01:15→19:34)
--- NOTE | 2020-03-30 03:00 | NUR ---
agricultural scientist. am care, oral care. bed bath given. linen changed. remaining same vent setting tolerated well. sat 98%. no acute distress noted nurse monitoring showing nsr. iv lt femoral picc line. tko running. gt feeding tolerated well. afebrile. hob elevated, turn and reposition q2h. will continue to monitor vitals
[2020-03-30] MEDS: PANTOPRAZOLE 40 MG/PACK PACK GT SCH (05:14)
[2020-03-30] MEDS: METOCLOPRAMIDE HCL 10 MG/10 ML UDC GT SCH ×4 (05:14→23:56)
[2020-03-30] MEDS: GABAPENTIN 300 MG CAPSULE GT SCH ×3 (05:14→20:15)
[2020-03-30] MEDS: ACETAMINOPHEN 650 MG/20.3 ML UDC NG PRN ×3 (05:38→19:59)
--- NOTE | 2020-03-30 06:52 | NUR ---
HEDIS REVIEW NURSE. PT HAS FEVER 100.5, TYLENOL GIVEN PER ORDERED
--- NOTE | 2020-03-30 07:35 | NUR ---
ICU/RN PT IS ON THE VENT CHRONIC TRACH FIO2-40%,SAT O2-100%..OPEN YES REACTIVE ON PAIN STIMULATION T-102,4.HX CVA,LEFT FEMORAL PICC LINE.LEVOPHED OFF AT THIS TIME.F/C IN PLACE WITH SMALL AMOUNT OF URINE, LEFT KIDNEY UROSTOMY DRAINING WITH CLOUDY URINE.G-TUBE INFUSING WITH NEPRO,NO RESIDUAL NOTED.ABDOMEN DISTENDED.BOWEL SOUNDS PRESENT.WOUND ON THE LOWER BACK COVERED WITH DRESSING.SUCTION PROVIDED.COOLING BLANKET ORDERED.LABS REVIEW. NOTIFIED.
[2020-03-30 08:06] LABS: OCCULT BLOOD STOOL NEGATIVE (NEGATIVE)
--- NOTE | 2020-03-30 08:15 | NUR ---
WOUND CARE CONSULT: PT UNSTABLE TO BE TURNED FOR SKIN ASSESSMENT. REVIEWED CHART, NURSING DOCUMENTATION AND PHOTOS WHICH INDICATE SOME DISCOLORATION AROUND G TUBE SITE AND SCARRING TO SACRUM EXTENDING TO BUTTOCKS WITH SOME INCONTINENCE ASSOCIATED SKIN DAMAGE, PRESENT ON ADMISSION. RECOMMENDATIONS MADE FOR SKIN PROTECTION. DISCUSSED WITH NURSING STAFF. PT IS ON FIRST STEP [facility] LOW AIRLOSS MATTRESS. WILL SEE PRN. IN AGREEMENT WITH PLAN OF CARE.
[2020-03-30] MEDS: BLOOD SUGAR DIAGNOSTIC 1 EACH STRIP VI SCH ×4 (08:39→21:37)
[2020-03-30] MEDS: MEROPENEM 500 MG in IV NS 0.9% 50 ML IV SCH ×2 (08:39→18:21)
[2020-03-30] MEDS: DOCUSATE SODIUM LIQ 100 MG/10 ML UDC GT SCH (08:41)
[2020-03-30] MEDS: FERROUS SULFATE UDC 300 MG/5 ML UDC GT SCH ×2 (08:42→20:16)
[2020-03-30] MEDS: LEVETIRACETAM SOL (5 ML) 100 MG/ML UDC GT SCH ×2 (08:42→20:16)
[2020-03-30] MEDS: VIT B CMPLX 3/FA/VIT C/BIOTIN 1 TAB TABLET GT SCH (08:42)
[2020-03-30] MEDS: OXCARBAZEPINE 150 MG TABLET GT SCH ×2 (08:43→20:16)
[2020-03-30] MEDS: ACIDOPHILUS/BULGARICUS 1 EACH TAB.CHEW GT SCH ×2 (08:43→16:39)
[2020-03-30] MEDS: ASCORBIC ACID 500 MG TABLET GT SCH (08:45)
[2020-03-30] MEDS: SENNOSIDES 8.6 MG TABLET GT SCH ×2 (08:46→20:17)
[2020-03-30] MEDS: PROSOURCE / PROSTAT (PYXIS) 30 ML UDC GT SCH ×3 (08:47→16:34)
--- NOTE | 2020-03-30 09:00 | NUR ---
ICU/RN DUE MEDS ARE GIVEN ORDERED.
[2020-03-30 09:06] LABS: HEMATOCRIT 21 % (33-45); HEMOGLOBIN 7.2 g/dL (11.5-14.8); MEAN CORPUSCULAR HGB CONC 34 g/dl (31.0-36.0); MEAN CORPUSCULAR VOLUME 95 fL (82-100); RED BLOOD CELL COUNT(AUTO) 2.25 MIL/uL (4.0-5.2)
[2020-03-30 09:07] LABS: BASOPHILS # (AUTO) 0.2 /CMM (0.0-0.2); BASOPHILS % (AUTO) 0.7 % (0.0-2.0); EOSINOPHILS % (AUTO) 1.4 % (0.0-6.0); LYMPHOCYTES # (AUTO) 2.1 /CMM (0.8-4.8); LYMPHOCYTES % (AUTO) 6.7 % (20.0-44.0); MONOCYTES # (AUTO) 2.3 /CMM (0.1-1.30); MONOCYTES % (AUTO) 7.1 % (2.0-12.0); NEUTROPHILS # (AUTO) 27.2 /CMM (1.8-8.9); NEUTROPHILS % (AUTO) 84.1 % (43.0-81.0); PLATELET COUNT (AUTO) 176 /CMM (150-450)
[2020-03-30 09:12] LABS: CALCIUM, SERUM 9.5 mg/dL (8.5-10.1); CREATININE 3.7 mg/dL (0.6-1.3); POTASSIUM 4.1 mmol/L (3.5-5.1)
[2020-03-30 09:17] LABS: WHITE BLOOD COUNT (AUTO) 32.2 K/uL (4.3-11.0)
[2020-03-30] MEDS: SIMETHICONE SUSP 40 MG/0.6 ML BOTTLE GT SCH ×2 (09:30→20:17)
[2020-03-30 10:21] LABS: BAND % (MANUAL) 2 % (0.0-5.0); LYMPHOCYTES % (MANUAL) 3 % (16-48); MONOCYTES % (MANUAL) 8 % (0-11.0); NEUTROPHILS % (MANUAL) 87 (42-76)
--- NOTE | 2020-03-30 11:00 | NUR ---
ICU/RN HD STARTED,PT BLOOD PRESSURE DECREASED.LEVOPHED RESTARTED ORDERED.CONTINUE MONITORING.
[2020-03-30] MEDS: INSULIN REGULAR, HUMAN 100 UNIT/ML 3 ML VIAL SQ PRN ×2 (12:47→17:49)
[2020-03-30] MEDS ORDERED: diphenhydrAMINE HCL 50 MG/ML VIAL IV PRN (14:00)
[2020-03-30] MEDS: NEPRO 1,000 ML BOTTLE GT PRN (16:43)
--- NOTE | 2020-03-30 18:00 | NUR ---
ICU/RN PM CARE PROVIDED.DUE MEDS ARE GIVEN ORDERED.WOUND DRESSING DONE ORDERED.SUCTION PROVIDED.REPOSITION FOR COMFORT.LEVOPHED DRIP STOP.BP STABLE.CONTINUE MONITORING.
--- NOTE | 2020-03-30 19:36 | NUR ---
RT NOTES PT RECEIVED TRACHED ON [facility] VENT ON ORDERED SETTINGS. NO RESP DISTRESS NOTED AT THIS TIME. AIRWAY PATENT AND SECURED. VALIDATION SOFTWARE FACILITATOR DONE. PT SUCTIONED. ALARMS SET AND AUDIBLE. VENT CONT TO RED OUTLET. WILL CONT TO MONITOR. Addendum: 03/30/20 at 1957 by EDDI GUTIÉRREZ RT Amended: Links added.
--- NOTE | 2020-03-30 20:00 | NUR ---
TURF AND GROUNDS SUPERVISOR RECEIVED PATIENT IN BED, OBTUNDED, ATTACHED TO [facility] VENT AC 12, TV 500, PEEP 0, NO RESPIRATORY DISTRESS NOTED AT THIS TIME, FEBRILE 100.4, MIDLINE LAMIN NS 250ML TKO, GT FEEDING NEPHRO @ 30ML/HR, DAVIDSON CATH ATTACHED WITH YELLOWISH URINE, LEFT NEPHROSTOMY YELLOWISH LIQUID, LEFT CHEST WALL HD CATH, WILL CONTINUE TO MONITOR.
[2020-03-30] MEDS: METRONIDAZOLE 500 MG TABLET PO SCH (20:15)
[2020-03-30] MEDS: *INSULIN REGULAR(HUMULIN R)HUM 100 UNIT/ML VIAL SQ PRN (21:50)
--- NOTE | 2020-03-30 23:48 | NUR ---
AUTOMOTIVE TECHNICIAN: SHANNON- 99.5.
[2020-03-31] VITALS (63 sets, daily range): BP systolic 79–143; BP diastolic 36–72
[2020-03-31] MEDS: ALBUTEROL FS 2.5 MG/3 ML VIAL.NEB IH SCH ×4 (01:03→20:12)
[2020-03-31 04:40] LABS: BASOPHILS # (AUTO) 0.5 /CMM (0.0-0.2); BASOPHILS % (AUTO) 1.7 % (0.0-2.0); EOSINOPHILS % (AUTO) 0.5 % (0.0-6.0); LYMPHOCYTES # (AUTO) 1.4 /CMM (0.8-4.8); LYMPHOCYTES % (AUTO) 4.6 % (20.0-44.0); MEAN CORPUSCULAR HGB CONC 34 g/dl (31.0-36.0); MEAN CORPUSCULAR VOLUME 95 fL (82-100); MONOCYTES # (AUTO) 2.1 /CMM (0.1-1.30); MONOCYTES % (AUTO) 7.2 % (2.0-12.0); NEUTROPHILS # (AUTO) 25.5 /CMM (1.8-8.9); PLATELET COUNT (AUTO) 186 /CMM (150-450); RED BLOOD CELL COUNT(AUTO) 2.08 MIL/uL (4.0-5.2); WHITE BLOOD COUNT (AUTO) 29.7 K/uL (4.3-11.0)
[2020-03-31 04:41] LABS: CALCIUM, SERUM 9.5 mg/dL (8.5-10.1); CREATININE 3.5 mg/dL (0.6-1.3); POTASSIUM 3.4 mmol/L (3.5-5.1)
[2020-03-31] MEDS: METOCLOPRAMIDE HCL 10 MG/10 ML UDC GT SCH ×4 (05:11→23:03)
[2020-03-31] MEDS: METRONIDAZOLE 500 MG TABLET PO SCH ×3 (05:11→20:40)
[2020-03-31] MEDS: GABAPENTIN 300 MG CAPSULE GT SCH ×3 (05:11→20:40)
[2020-03-31] MEDS: PANTOPRAZOLE 40 MG/PACK PACK GT SCH (05:11)
[2020-03-31 05:31] LABS: HEMATOCRIT 20 % (33-45); HEMOGLOBIN 6.6 g/dL (11.5-14.8)
--- NOTE | 2020-03-31 06:10 | NUR ---
VISUAL MERCHANDISING COORDINATOR: INFORMED MD REGARDING PATIENTS CRITICAL LAB RESULT. HGB, HCT AND BUN. HE ORDERED 1 UNIT PRBC TO TRANSFUSE WITH HD.
[2020-03-31] MEDS: MEROPENEM 500 MG in IV NS 0.9% 50 ML IV SCH ×2 (06:29→18:34)
[2020-03-31] MEDS: BLOOD SUGAR DIAGNOSTIC 1 EACH STRIP VI SCH ×4 (06:31→21:39)
[2020-03-31 06:33] LABS: BAND % (MANUAL) 3 % (0.0-5.0); EOSINOPHILS % (MANUAL) 1 % (0-4); LYMPHOCYTES % (MANUAL) 3 % (16-48); METAMYELOCYTES % 3 % (0-0); MONOCYTES % (MANUAL) 5 % (0-11.0); MYELOCYTES % 3 % (0-0); NEUTROPHILS % (MANUAL) 82 (42-76)
[2020-03-31] MEDS: INSULIN REGULAR, HUMAN 100 UNIT/ML 3 ML VIAL SQ PRN ×3 (06:40→17:44)
--- NOTE | 2020-03-31 07:19 | NUR ---
BLEACHER GROUNDWOOD PULP NOTES ENDORSED PATIENT TO AM SHIFT NURSE IN BED, ATTACHED TO MECH VENT, DUE MEDS GIVEN, 1 BM WHOLE SHIFT, NO RESPIRATORY AND CARDIAC DISTRESS WHOLE SHIFT, SIDE RAILS UP X3 FOR SAFETY.
--- NOTE | 2020-03-31 07:40 | NUR ---
ICU/RN PT IS ON THE VENT CHRONIC TRACH,AC MODE,FIO2-40%.SAT O2-100%.V/S STABLE,AFEBRILE.NO PAIN REPORTED AT THIS TIME.G-TUBE INFUSING WITH NEPRO.NO RESIDUAL NOTED.ABDOMEN DISTENDED.BOWEL SOUNDS PRESENT.OFF LEVOPHED BP STABLE,.SUCTION PROVIDED.REPOSITION FOR COMFORT.
[2020-03-31] MEDS: PROSOURCE / PROSTAT (PYXIS) 30 ML UDC GT SCH ×3 (08:46→16:09)
[2020-03-31] MEDS: FERROUS SULFATE UDC 300 MG/5 ML UDC GT SCH ×2 (08:47→20:40)
[2020-03-31] MEDS: LEVETIRACETAM SOL (5 ML) 100 MG/ML UDC GT SCH ×2 (08:47→20:40)
[2020-03-31] MEDS: ACIDOPHILUS/BULGARICUS 1 EACH TAB.CHEW GT SCH ×2 (08:47→16:13)
[2020-03-31] MEDS: OXCARBAZEPINE 150 MG TABLET GT SCH ×2 (08:47→20:40)
[2020-03-31] MEDS: ASCORBIC ACID 500 MG TABLET GT SCH (08:49)
[2020-03-31] MEDS: VIT B CMPLX 3/FA/VIT C/BIOTIN 1 TAB TABLET GT SCH (08:50)
[2020-03-31] MEDS: SIMETHICONE SUSP 40 MG/0.6 ML BOTTLE GT SCH ×2 (08:50→20:41)
[2020-03-31] MEDS: DOCUSATE SODIUM LIQ 100 MG/10 ML UDC GT SCH (08:51)
[2020-03-31] MEDS: SENNOSIDES 8.6 MG TABLET GT SCH ×2 (08:51→20:40)
--- NOTE | 2020-03-31 09:00 | NUR ---
ICU/RN DUE MEDS ARE GIVEN ORDERED,LABS REVIEW.MD NOTIFIED.H/H-6.6/20 .1 UNIT PRBC ORDERED WITH HD.
--- NOTE | 2020-03-31 12:00 | NUR ---
ICU/RN 1 UNIT PRBC GIVEN DURING HD .UNABLE TO SCAN BLOOD DUE TO LABORATORY ISSUE.SEE PAPER FORM IN THE CHART. A EMERGENCY RELEASE OF BLOOD WAIVER. PT TOLERATED TRANSFUSION WELL NO S/S OF REACTION NOTED.V/S STABLE,AFEBRILE.HD IS OVER. 1000ML OUTPUT.
[2020-03-31] MEDS: NEPRO 1,000 ML BOTTLE GT PRN (12:18)
[2020-03-31] MEDS ORDERED: VANCOMYCIN 1 GM in IV D5W 250 ML IV ONE (14:00)
[2020-03-31] MEDS: ACETYLCYSTEINE 10% SOLN 400 MG/4 ML VIAL NEB SCH (15:06)
--- NOTE | 2020-03-31 19:05 | NUR ---
KIER DRIER NOTE RECEIVED PATIENT IN BED RESTING WITH HOB ELEVATED. PATIENT IS AWAKE, ALERT, OBTUNDED, VENT DEPENDANT. BREATHING IS EVEN AND UNLABORED, NO SOB NOTED AT THIS TIME. AFEBRILE. DNR CODE STATUS. PATIENT ON DAVIDSON CATH, URINE IS YELLOW IN COLOR, NOTED WITH SEDIMENTS. PATIENT ALSO HAS LEFT NEPHROSTOMY, DRAINAGE IS YELLOW WITH SEDIMENTS NOTED. ON GT FEEDING NEPHRO RUNNING AT 30 ML/HR. IV SITE ON LEFT UPPER ARM MIDLINE IS CLEAN, DRY, AND PATENT. HD CATH ON LEFT CHEST WALL. BILATERAL UPPER AND LOWER EXTREMITIES ARE FLACCID. VITALS WNL AT THIS TIME. WILL CONTINUE TO MONITOR.
[2020-03-31] MEDS: *INSULIN REGULAR(HUMULIN R)HUM 100 UNIT/ML VIAL SQ PRN (21:45)
[2020-03-31] MEDS: ACETAMINOPHEN 650 MG/20.3 ML UDC NG PRN (23:03)
[2020-04-01] VITALS (26 sets, daily range): BP systolic 107–130; BP diastolic 47–66
--- NOTE | 2020-04-01 | NUR ---
LAP RUNNER NOTE PATIENT TOLERATED BED BATH WELL AT THIS TIME. NOTED X1 LARGE BOWEL MOVEMENT. STOOL WAS LIQUID CONSISTENCY. ALL WOUND CARE RENDERED. WILL CONTINUE TO MONITOR.
[2020-04-01] MEDS: ACETYLCYSTEINE 10% SOLN 400 MG/4 ML VIAL NEB SCH ×3 (00:17→13:40)
[2020-04-01] MEDS: ALBUTEROL FS 2.5 MG/3 ML VIAL.NEB IH SCH ×4 (00:17→22:06)
[2020-04-01 04:45] LABS: CREATININE 3.1 mg/dL (0.6-1.3); POTASSIUM 3.7 mmol/L (3.5-5.1)
[2020-04-01 05:01] LABS: BASOPHILS # (AUTO) 0.4 /CMM (0.0-0.2); BASOPHILS % (AUTO) 1.4 % (0.0-2.0); EOSINOPHILS % (AUTO) 2.2 % (0.0-6.0); HEMATOCRIT 25 % (33-45); HEMOGLOBIN 8.4 g/dL (11.5-14.8); LYMPHOCYTES # (AUTO) 4.1 /CMM (0.8-4.8); MEAN CORPUSCULAR HGB CONC 33 g/dl (31.0-36.0); MEAN CORPUSCULAR VOLUME 96 fL (82-100); MONOCYTES # (AUTO) 1.4 /CMM (0.1-1.30); MONOCYTES % (AUTO) 5.3 % (2.0-12.0); NEUTROPHILS # (AUTO) 19.1 /CMM (1.8-8.9); NEUTROPHILS % (AUTO) 75.1 % (43.0-81.0); PLATELET COUNT (AUTO) 190 /CMM (150-450); RED BLOOD CELL COUNT(AUTO) 2.66 MIL/uL (4.0-5.2); WHITE BLOOD COUNT (AUTO) 25.5 K/uL (4.3-11.0)
[2020-04-01] MEDS: METRONIDAZOLE 500 MG TABLET PO SCH ×3 (05:13→20:53)
[2020-04-01] MEDS: GABAPENTIN 300 MG CAPSULE GT SCH ×3 (05:13→20:54)
[2020-04-01] MEDS: PANTOPRAZOLE 40 MG/PACK PACK GT SCH (05:13)
[2020-04-01] MEDS: METOCLOPRAMIDE HCL 10 MG/10 ML UDC GT SCH ×3 (05:13→18:00)
[2020-04-01] MEDS ORDERED: VANCOMYCIN 500 MG in IV D5W 100 ML IV PRN (06:00)
[2020-04-01] MEDS: MEROPENEM 500 MG in IV NS 0.9% 50 ML IV SCH ×2 (06:12→18:01)
--- NOTE | 2020-04-01 07:22 | NUR ---
GATE OPERATOR NOTE PATIENT REMAINED STABLE THROUGHOUT THE NIGHT. NO SIGNIFICANT CHANGES NOTED. DUE MEDS GIVEN AND TOLERATED WELL. WOUND CARE RENDERED. PATIENT KEPT CLEAN, DRY, AND COMFORTABLE. REPOSITIONED Q2H. ENDORSED TO AM SHIFT BRIANNA JOHNSON FOR CONTINUATION OF CARE.
--- NOTE | 2020-04-01 07:41 | NUR ---
SURGICAL CLINICAL REVIEWER NOTE PATIENT IN BED , WITH TRACH TO VENT SETTING ORDERED , OPEN BOTH EYES , RESPONSE TO PAIN STIMULI, WITH DAVIDSON CATH TO GRAVITY WITH YELLOW COLOR URINE NOTE AND LT NEPHROSTOMY IN PLACE, NO URINE NOTED AT THIS TIE, ON G TUBE FEEDING ORDERED , KEEP HOB ELEVATE AT ALL TIME, NOTE ABDOMEN IS DISTENDED BUT SOFT TO TOUCH, LAMIN HL INTACT , BED IN LOWEST AND LOCKED POSITION, CALL LIGHT WITHIN REACH, WILL CONT TO MONITOR
[2020-04-01] MEDS: BLOOD SUGAR DIAGNOSTIC 1 EACH STRIP VI SCH ×4 (07:46→21:28)
[2020-04-01] MEDS: VIT B CMPLX 3/FA/VIT C/BIOTIN 1 TAB TABLET GT SCH (08:46)
[2020-04-01] MEDS: FERROUS SULFATE UDC 300 MG/5 ML UDC GT SCH ×2 (08:47→20:47)
[2020-04-01] MEDS: DOCUSATE SODIUM LIQ 100 MG/10 ML UDC GT SCH (08:47)
[2020-04-01] MEDS: ASCORBIC ACID 500 MG TABLET GT SCH (08:47)
[2020-04-01] MEDS: LEVETIRACETAM SOL (5 ML) 100 MG/ML UDC GT SCH ×2 (08:48→20:54)
[2020-04-01] MEDS: SENNOSIDES 8.6 MG TABLET GT SCH (08:48)
[2020-04-01] MEDS: PROSOURCE / PROSTAT (PYXIS) 30 ML UDC GT SCH ×3 (08:48→17:00)
[2020-04-01] MEDS: ACIDOPHILUS/BULGARICUS 1 EACH TAB.CHEW GT SCH ×2 (08:48→18:00)
[2020-04-01] MEDS: OXCARBAZEPINE 150 MG TABLET GT SCH ×2 (08:48→20:52)
[2020-04-01] MEDS: SIMETHICONE SUSP 40 MG/0.6 ML BOTTLE GT SCH ×2 (08:52→20:47)
--- NOTE | 2020-04-01 09:31 | NUR ---
TRANSFER WORKER NOTES DR. STOCK AT BEDSIDE. UPDATED PATIENT'S CONDITION. NO DIALYSIS TODAY PER DR. STOCK. [facility] N[facility] NOTIFIED.
--- NOTE | 2020-04-01 10:01 | NUR ---
MUNICIPAL CLERK NOTES UPDATED PATIENTS CONDITION WITH SAWMILL EQUIPMENT OPERATOR, DR. HENDERSON. REPORTED WBC 25.5 TEMP 99.9. WAITING FOR FURTHER ORDERS.
[2020-04-01] MEDS: ACETAMINOPHEN 650 MG/20.3 ML UDC NG PRN (11:17)
[2020-04-01] MEDS: INSULIN REGULAR, HUMAN 100 UNIT/ML 3 ML VIAL SQ PRN ×3 (11:18→21:31)
--- NOTE | 2020-04-01 11:48 | NUR ---
ADMINISTRATIVE SUPPORT SPECIALIST NOTES PATIENT HAS T 100.4. TYLENOL AND COOLING MEASURES PROVIDED. WILL CONTINUE TO MONITOR.
--- NOTE | 2020-04-01 12:07 | NUR ---
FALSEWORK BUILDER NOTES PATIENT HAS LOOSE STOOL NOW. DR. ARTEAGA NOTIFIED. OK TO STOP COLACE AND SENNAKOT. ORDER NOTED AND CARRIED OUT.
--- NOTE | 2020-04-01 14:27 | NUR ---
SKEINS YARN EXAMINER NOTES ROUNDS MADE. TURNED AND REPOSITIONED. TRACH CARE DONE, SUCTIONED AT THIS TIME. TEMPERATURE RECHECKED, 99.8. O2 SAT 100% KEPT CLEAN AND DRY. WILL CONTINUE TO MONITOR.
[2020-04-01] MEDS ORDERED: EPOETIN ALFA (20,000 UNIT) 20,000 UNIT/ML VIAL SQ ONE (15:00)
--- NOTE | 2020-04-01 15:51 | NUR ---
VP RESEARCH NOTES REPORT GIVEN TO ANDREA REED. CALLED PHARMACY, [facility]PO[facility] STILL NOT AVAILABLE.
--- NOTE | 2020-04-01 18:58 | NUR ---
RN CLOSING NOTE PATIENT IS RESTING COMFORTABLY IN BED, S/S OF DISTRESS, PATIENT NEEDS HAVE BEEN MET, NO ACUTE CHANGES OCCURRED OVER SHIFT, VSS, PATIENT ON MECHANICAL VENT AND TRACH, SAFETY MEASURES IMPLEMENTED, CALL LIGHT WITHIN REACH, BED IN LOWEST AND LOCKED POSITION, SIDE RAILS UP X2, WILL ENDORSE TO MEAT TRIMMER RN FOR WHIT.
--- NOTE | 2020-04-01 19:30 | NUR ---
LIVING SUPERVISOR NOTES RECEIVED PATIENT RESTING IN BED, APPEARS COMFORTABLE, NO ACUTE DISTRESS NOTED. PATIENT WITH TRACH, SHILEY 8 XLT, ON MECHANICAL VENTILATION AT PRESCRIBED SETTINGS, TOLERATING WELL, FREE FROM ANY S/S OF ACUTE DISTRESS. PATIENT OPENS EYES TO TACTILE STIMULI, BUT UNABLE TO COMMUNICATE AT THIS TIME. DAVIDSON CATHETER PATENT AND INTACT, DRAINING JULI COLORED URINE WITH SEDIMENT AND MUCOUS, LEFT NEPHROSTOMY TUBE PATENT AND INTACT, DRAINING SEROUS FLUID VIA GRAVITY. GTUBE PATENT AND INTACT, TOLERATING TUBE FEEDING AT PRESCRIBED RATE, MINIMAL GASTRIC RESIDUALS NOTED.
[2020-04-01] MEDS ORDERED: IV NS 0.9% 250 ML IV PRN (22:00)
[2020-04-02] VITALS (20 sets, daily range): BP systolic 105–128; BP diastolic 53–66
[2020-04-02] MEDS: METOCLOPRAMIDE HCL 10 MG/10 ML UDC GT SCH ×3 (00:18→11:45)
[2020-04-02] MEDS: ACETYLCYSTEINE 10% SOLN 400 MG/4 ML VIAL NEB SCH ×2 (01:58→07:41)
[2020-04-02] MEDS: ALBUTEROL FS 2.5 MG/3 ML VIAL.NEB IH SCH ×2 (01:58→07:42)
--- NOTE | 2020-04-02 03:54 | NUR ---
RT NOTE Pt rec'd trached on [facility] vent on AC mode. Pt shows no signs of resp distress or sob. Trach is patent and secured. Pt sx'd for thick mod amt of pale yellow secretions. alarms are set and audible. Vent plugged into red outlet. Ambu bag and emergency spare trach bedside. Will continue to monitor closely. Addendum: 04/02/20 at 0356 by LADAN WICK RT Amended: Links added.
--- NOTE | 2020-04-02 04:00 | NUR ---
ARCHIVES TECHNICIAN NOTES FULL BED BATH RENDERED, WOUNDS/SKIN ISSUES PHOTOGRAPHED AND DOCUMENTED PER PROTOCOL. PATIENT TOLERATED WOUND CARE WELL, NO ACUTE DISTRESS NOTED, WILL CONTINUE TO MONITOR
[2020-04-02] MEDS: PANTOPRAZOLE 40 MG/PACK PACK GT SCH (05:27)
[2020-04-02] MEDS: GABAPENTIN 300 MG CAPSULE GT SCH ×2 (05:27→11:45)
[2020-04-02] MEDS: METRONIDAZOLE 500 MG TABLET PO SCH ×2 (05:28→11:45)
--- NOTE | 2020-04-02 06:00 | NUR ---
PAN GREASER NOTES HD NURSE AT BEDSIDE TO START HEMODIALYSIS. LAB CALLED TO DRAW STAT AM LABS. WILL MONITOR PATIENT CLOSELY
[2020-04-02 06:41] LABS: BASOPHILS # (AUTO) 0.1 /CMM (0.0-0.2); BASOPHILS % (AUTO) 0.5 % (0.0-2.0); EOSINOPHILS % (AUTO) 2.8 % (0.0-6.0); HEMATOCRIT 23 % (33-45); HEMOGLOBIN 7.8 g/dL (11.5-14.8); LYMPHOCYTES # (AUTO) 1.9 /CMM (0.8-4.8); LYMPHOCYTES % (AUTO) 11.5 % (20.0-44.0); MEAN CORPUSCULAR HGB CONC 33 g/dl (31.0-36.0); MEAN CORPUSCULAR VOLUME 95 fL (82-100); MONOCYTES # (AUTO) 0.8 /CMM (0.1-1.30); MONOCYTES % (AUTO) 4.7 % (2.0-12.0); NEUTROPHILS # (AUTO) 13.3 /CMM (1.8-8.9); NEUTROPHILS % (AUTO) 80.5 % (43.0-81.0); PLATELET COUNT (AUTO) 213 /CMM (150-450); RED BLOOD CELL COUNT(AUTO) 2.45 MIL/uL (4.0-5.2); WHITE BLOOD COUNT (AUTO) 16.6 K/uL (4.3-11.0)
[2020-04-02 07:03] LABS: CALCIUM, SERUM 9.6 mg/dL (8.5-10.1); CREATININE 3.1 mg/dL (0.6-1.3); MAGNESIUM 2.3 mg/dL (1.8-2.4); PHOSPHORUS 4.2 mg/dL (2.5-4.9)
[2020-04-02] MEDS: NEPRO 1,000 ML BOTTLE GT PRN (07:14)
--- NOTE | 2020-04-02 07:42 | NUR ---
RT Pt received trached on mechanical ventilation with noted settings. Vent alarms are set and audible with BVM by bedside, vent is plugged into red outlet, and spare trach by bedside. No SOB or respiratory distress noted. Addendum: 04/02/20 at 0855 by MIMI WALKER RT Amended: Links added.
--- NOTE | 2020-04-02 08:00 | NUR ---
RN NOTES RECEIVED PATIENT IN THE ROOM TRACHEA /VENT DEPENDENT, TOTAL CARE. NO ACUTE RESPIRATORY DISTRESS, V/S TAKEN BP 125/61, P-89. PATIENT GETTING HD AT THIS TIME. DISTENDED ABDOMEN, GT FEEDING NEPRO AT 30 ML INTACT, , KEEP HOB ELEVATED FOR ASPIRATION PRECAUTION. IV ACCESS ON LEFT UA INFUSING MERREM 100ML/HR INTACT. WILL CONTINUED MONITORING.
--- NOTE | 2020-04-02 08:05 | NUR ---
olericulture teacher notes patient had hemodialysis at this time removed 1500 m output, v/s taken 125/61, p-89.
[2020-04-02] MEDS: MEROPENEM 500 MG in IV NS 0.9% 50 ML IV SCH (08:43)
[2020-04-02] MEDS: BLOOD SUGAR DIAGNOSTIC 1 EACH STRIP VI SCH ×2 (08:44→11:42)
[2020-04-02] MEDS: FERROUS SULFATE UDC 300 MG/5 ML UDC GT SCH (08:45)
[2020-04-02] MEDS: OXCARBAZEPINE 150 MG TABLET GT SCH (08:46)
[2020-04-02] MEDS: LEVETIRACETAM SOL (5 ML) 100 MG/ML UDC GT SCH (08:46)
[2020-04-02] MEDS: ASCORBIC ACID 500 MG TABLET GT SCH (08:46)
[2020-04-02] MEDS: ACIDOPHILUS/BULGARICUS 1 EACH TAB.CHEW GT SCH (08:46)
[2020-04-02] MEDS: VIT B CMPLX 3/FA/VIT C/BIOTIN 1 TAB TABLET GT SCH (08:46)
[2020-04-02] MEDS: SIMETHICONE SUSP 40 MG/0.6 ML BOTTLE GT SCH (08:47)
[2020-04-02] MEDS: PROSOURCE / PROSTAT (PYXIS) 30 ML UDC GT SCH ×2 (09:17→11:46)
[2020-04-02] MEDS: INSULIN REGULAR, HUMAN 100 UNIT/ML 3 ML VIAL SQ PRN ×2 (09:23→12:01)
--- NOTE | 2020-04-02 12:02 | NUR ---
rn notes bs-191 mg/dl, coverage given, also administered due medication, v/s taken bp 121/55, p-88, r-16. patient suction, needs attended and anticipated, f/c draining yellow output , nephro tubing draining intact, GTF infusing 30 ml/hr. assist turn and reposition q 2 hr, dressing changed. will continued monitoring. plan ois transfer patient back to the subacute room 274. per workers compensation analyst Ted continued medication.
[2020-04-02] MEDS ORDERED: BLOOD SUGAR DIAGNOSTIC 1 EACH STRIP VI SCH (13:00)
[2020-04-02] MEDS ORDERED: INSULIN REGULAR, HUMAN 100 UNIT/ML 3 ML VIAL SQ PRN (13:30)
[2020-04-02] MEDS ORDERED: DEXTROSE 50%-WATER 50 ML DISP.SYRIN IV PRN (13:30)
--- NOTE | 2020-04-02 14:00 | NUR ---
FUEL ATTENDANTDISPENSING OPTICIAN APPRENTICE NOTES PATIENT DISCHARGE TO THE SUB ACUTE ON SOH AT THIS TIME. PATIENT STABLE , TRACHEA/VENT DEPENDENT. NO ACUTE RESPIRATORY DISTRESS, PATIENT HAS GT FEEDING SIDE LEAKAGE, MD AWARE OF, AND GET ORDER TO HOLD FEEDING. ALSO NOTIFIED CHARGE NORSE. CONTINUE MEDICATION PRESCRIBED, MED RECONCILIATION REVIEWED AND EXPLAINED TO. REPORT GIVEN SUBACUTE RN JASON. RN VERBALIZED UNDERSTANDING. PATIENT HAS NO BELONGING. FAMILY AWARE OF DISCHARGE PLANING.
[2020-04-02] MEDS ORDERED: EPOETIN ALFA (4000 UNIT) 4,000 UNIT/ML VIAL SQ SCH (18:30)
[2020-04-03] MEDS ORDERED: METRONIDAZOLE 500 MG TABLET ONE (04:33)
[2020-04-09] MEDS ORDERED: EPOETIN ALFA (4000 UNIT) 4,000 UNIT/ML VIAL SQ SCH ×2 (18:00)
== END 2020-04-02 14:17 | DRG 314 ==
LOC: ICU 18:04 → EDSEX 18:04
PROVIDERS: ADMIT Internal Medicine; ATTEND Internal Medicine
PROC: 5A1955Z Respiratory Ventilation, Greater than 96 Consecutive Hours (ICD-10-PCS; principal; 2020-03-28)
PROC: 30233N1 Transfusion of Nonautologous Red Blood Cells into Peripheral Vein, Percutaneous Approach (ICD-10-PCS; 2020-03-28)
PROC: 5A1D70Z Performance of Urinary Filtration, Intermittent, Less than 6 Hours Per Day (ICD-10-PCS; 2020-03-29)
PROC: 02HV33Z Insertion of Infusion Device into Superior Vena Cava, Percutaneous Approach (ICD-10-PCS; 2020-03-29)
PROC: B548ZZA Ultrasonography of Superior Vena Cava, Guidance (ICD-10-PCS; 2020-03-29)
PROC: 05HY33Z Insertion of Infusion Device into Upper Vein, Percutaneous Approach (ICD-10-PCS; 2020-03-30)
DX: T80.211A Bloodstream infection due to central venous catheter, initial encounter (principal); N18.6 End stage renal disease; R53.2 Functional quadriplegia; J18.9 Pneumonia, unspecified organism; R65.21 Severe sepsis with septic shock; G92 Toxic encephalopathy; A41.02 Sepsis due to Methicillin resistant Staphylococcus aureus; G93.40 Encephalopathy, unspecified; J96.10 Chronic respiratory failure, unspecified whether with hypoxia or hypercapnia; N39.0 Urinary tract infection, site not specified; Z99.11 Dependence on respirator [ventilator] status; D62 Acute posthemorrhagic anemia; I12.0 Hypertensive chronic kidney disease with stage 5 chronic kidney disease or end stage renal disease; E22.2 Syndrome of inappropriate secretion of antidiuretic hormone; G40.909 Epilepsy, unspecified, not intractable, without status epilepticus; I25.10 Atherosclerotic heart disease of native coronary artery without angina pectoris; Z99.2 Dependence on renal dialysis; Z93.0 Tracheostomy status; Z93.6 Other artificial openings of urinary tract status; Z66 Do not resuscitate; Z93.1 Gastrostomy status; R13.10 Dysphagia, unspecified; Z91.048 Other nonmedicinal substance allergy status; Z79.4 Long term (current) use of insulin; Z79.899 Other long term (current) drug therapy; Z79.51 Long term (current) use of inhaled steroids; N13.9 Obstructive and reflux uropathy, unspecified; N25.0 Renal osteodystrophy; Z88.2 Allergy status to sulfonamides; Z87.440 Personal history of urinary (tract) infections; M89.9 Disorder of bone, unspecified; E78.5 Hyperlipidemia, unspecified; D63.1 Anemia in chronic kidney disease; E11.22 Type 2 diabetes mellitus with diabetic chronic kidney disease
CPT/HCPCS: 31720; 36415; 71045-TC; 80048-TC; 80202-TC; 82272-TC; 82962-TC; 83735-TC; 84100-TC; 84484-TC; 85025-TC; 86706; 86850-TC; 87040-TC; 87070-TC; 87086-TC; 87340; 90935-TC; 93307-TC; 94002-TC; 94003-TC; 94799-TC; 99082-TC; A6253; A6403; G0378; J0885; J1815; J1953; J2185; J3370; J7050; J7060; J8597; P9016-BL; U0003

== ENCOUNTER 2020-06-08 00:01 | Inpatient (IN) | payer MEDICARE, OTHER ==
[~2020-06-08] VITALS: Ht 170.2 cm; Wt 73.9 kg
[~2020-06-08 00:01] MED LIST changes: +AMIN887L GT; +FOLI0.8T2 GT; +LORA2VIA11 IVP; -MAG30ORA GT; -MAGN400O6 GT; -MULT-447 GT; +ONDA4TAB5 GT; +POLY17PO4 GT; -VITA56.7 TP
[2020-06-11] MEDS ORDERED: HYDROGEN PEROXIDE 480 ML BOTTLE TP PRN (11:30)
[2020-06-11] MEDS ORDERED: LORAZEPAM INJ 2 MG/ML VIAL IVP PRN (11:30)
[2020-06-11] MEDS ORDERED: BISACODYL SUPP (10 MG) 10 MG/SUPP.RECT SUPP.RECT RC PRN (11:30)
[2020-06-11] MEDS ORDERED: POLYETHYLENE GLYCOL 3350 17 GM POWD.PACK GT PRN (11:30)
[2020-06-11] MEDS ORDERED: DEXTROSE 50%-WATER 50 ML DISP.SYRIN IV PRN (11:30)
[2020-06-11] MEDS ORDERED: LORAZEPAM 1 MG TABLET GT PRN (11:30)
[2020-06-11] MEDS ORDERED: TUBERCULIN,PURIF.PROT.DERIV. 5 TU/0.1 ML VIAL ID SCH (11:30)
[2020-06-11] MEDS ORDERED: ACETAMINOPHEN 650 MG/20 ML UDC- SA PATIENTS-FEVER ONLY GT PRN (11:30)
[2020-06-11] MEDS ORDERED: ONDANSETRON HCL/PF 4 MG/2 ML VIAL IVP PRN (11:30)
[2020-06-11] MEDS: METOCLOPRAMIDE HCL 10 MG/10 ML UDC GT SCH ×3 (12:25→23:25)
[2020-06-11] MEDS: PROSTAT (PYXIS) 30 ML UDC GT SCH ×2 (12:25→17:26)
[2020-06-11] MEDS: hydrOXYzine 10 MG TABLET GT SCH ×2 (12:25→21:27)
[2020-06-11] MEDS: SEVELAMER CARBONATE 800 MG POWD.PACK GT SCH ×2 (12:25→17:26)
[2020-06-11] MEDS: BLOOD SUGAR DIAGNOSTIC 1 EACH STRIP IN SCH ×3 (12:25→23:25)
[2020-06-11] MEDS: GABAPENTIN 250 MG/5 ML GT SCH ×2 (12:25→21:27)
--- NOTE | 2020-06-11 12:45 | NUR ---
Virtual rounds done with NAN Vargas, no new order given.
[2020-06-11] MEDS: INSULIN REGULAR, HUMAN 100 UNIT/ML 3 ML VIAL SQ PRN ×3 (12:55→23:40)
[2020-06-11 13:29] VITALS: BP 117/70
[2020-06-11] MEDS: ALBUTEROL FS 2.5 MG/3 ML VIAL.NEB NEB SCH ×2 (14:12→19:36)
--- NOTE | 2020-06-11 15:42 | NUR ---
Please see resident's previous account [phone] for all assessments and nurses notes. Originally admitted on 08/08/16; readmitted on 04/02/20.
[2020-06-11] MEDS: ACETYLCYSTEINE 10% SOLN 400 MG/4 ML VIAL NEB SCH (16:03)
[2020-06-11] MEDS: ACIDOPHILUS/BULGARICUS 1 EACH TAB.CHEW GT SCH (17:26)
[2020-06-11] MEDS: NEPRO 1,000 ML BOTTLE GT PRN (18:41)
[2020-06-11] MEDS: HYDROGEN PEROXIDE 480 ML BOTTLE TP SCH (19:36)
[2020-06-11 19:49] VITALS: BP 122/73
[2020-06-11] MEDS ORDERED: HYDROGEL DRESSING 90 GM TUBE TP SCH (21:00)
[2020-06-11] MEDS ORDERED: CLOTRIMAZOLE 1% 15 GM TUBE TP SCH (21:00)
[2020-06-11] MEDS: TRILEPTAL GT SCH (21:27)
[2020-06-11] MEDS: LEVETIRACETAM SOL (5 ML) 100 MG/ML UDC GT SCH (21:27)
[2020-06-11] MEDS: FERROUS SULFATE - FOR SA ONLY 330 MG/7.5 ML UDC GT SCH (21:27)
[2020-06-11] MEDS: SIMETHICONE SUSP 40 MG/0.6 ML BOTTLE GT SCH (21:27)
[2020-06-12] VITALS: BP 118/62
[2020-06-12] MEDS: ACETYLCYSTEINE 10% SOLN 400 MG/4 ML VIAL NEB SCH ×3 (00:10→14:07)
[2020-06-12] MEDS: ALBUTEROL FS 2.5 MG/3 ML VIAL.NEB NEB SCH ×4 (00:58→20:22)
[2020-06-12] MEDS: GABAPENTIN 250 MG/5 ML GT SCH ×3 (05:28→20:46)
[2020-06-12] MEDS: hydrOXYzine 10 MG TABLET GT SCH ×3 (05:28→20:45)
[2020-06-12] MEDS: BLOOD SUGAR DIAGNOSTIC 1 EACH STRIP IN SCH ×3 (05:29→18:26)
[2020-06-12] MEDS: OMEPRAZOLE 20 MG CAPSULE.DR GT SCH (05:29)
[2020-06-12] MEDS: METOCLOPRAMIDE HCL 10 MG/10 ML UDC GT SCH ×3 (05:29→18:26)
[2020-06-12] MEDS: INSULIN REGULAR, HUMAN 100 UNIT/ML 3 ML VIAL SQ PRN ×2 (05:30→12:03)
[2020-06-12 07:47] VITALS: BP 126/74
[2020-06-12] MEDS: HYDROGEN PEROXIDE 480 ML BOTTLE TP SCH ×2 (08:31→21:15)
[2020-06-12] MEDS: VIT B CMPLX 3/FA/VIT C/BIOTIN 1 TAB TABLET GT SCH (08:54)
[2020-06-12] MEDS: PROSTAT (PYXIS) 30 ML UDC GT SCH ×3 (08:54→17:00)
[2020-06-12] MEDS: ACIDOPHILUS/BULGARICUS 1 EACH TAB.CHEW GT SCH ×2 (08:54→17:00)
[2020-06-12] MEDS: LEVETIRACETAM SOL (5 ML) 100 MG/ML UDC GT SCH ×2 (08:54→20:48)
[2020-06-12] MEDS: TRILEPTAL GT SCH ×2 (08:54→20:47)
[2020-06-12] MEDS: SIMETHICONE SUSP 40 MG/0.6 ML BOTTLE GT SCH ×2 (08:54→20:48)
[2020-06-12] MEDS: FERROUS SULFATE - FOR SA ONLY 330 MG/7.5 ML UDC GT SCH ×2 (08:54→20:45)
[2020-06-12] MEDS: SEVELAMER CARBONATE 800 MG POWD.PACK GT SCH ×3 (08:54→18:26)
[2020-06-12] MEDS: ASCORBIC ACID 500 MG TABLET GT SCH (08:54)
--- NOTE | 2020-06-12 09:10 | NUR ---
INTAKE PAPERWORK: To observe visitation restrictions set in place by [facility] due to Coronavirus Pandemic, this SW called the patients sister/Conservator, Beckie Chu [phone] on 06/12/2020 and reviewed the intake paperwork: (Patient Right's Acknowledgement, Documentation of Preferred Intensity of Care, Conditions of Admission, [facility] Agreement, and Voluntary Prior Express Consent form and An Important Message from Medicare). Beckie, is the patients conservator and has provided [facility] with [facility]. Beckie expressed understanding and was agreeable reviewing intake paperwork with SW over the phone and providing a wet signature when paperwork arrives via mail. This SW addressed all of the familys questions. Beckie Chu stated that the intensity of care provided to the pt. should be Maximum Treatment and No CPR. STEPHEN mailed intake paperwork to: Beckie Chu [[address] [place], [place] [id number]; [phone]] along with a copy of the Bill of Rights, Beckie to read over and sign paperwork. SW provided Beckie with a pre-paid envelope. SW will wait for paperwork to be completed and mailed back by Beckie. SW will follow up as needed to assist the family with completing intake paperwork. Please see resident's previous account [phone] for all assessments and nurses notes.
--- NOTE | 2020-06-12 12:04 | NUR ---
Resident left for dialysis, meds not given prior to dialysis. Resident left in stable condition, VSS.
[2020-06-12 18:56] VITALS: BP 109/72
[2020-06-12 20:59] VITALS: BP 128/73
[2020-06-13] MEDS: ACETYLCYSTEINE 10% SOLN 400 MG/4 ML VIAL NEB SCH ×4 (00:09→23:44)
[2020-06-13] MEDS: BLOOD SUGAR DIAGNOSTIC 1 EACH STRIP IN SCH ×5 (00:10→23:42)
[2020-06-13] MEDS: METOCLOPRAMIDE HCL 10 MG/10 ML UDC GT SCH ×5 (00:10→23:42)
[2020-06-13] MEDS: INSULIN REGULAR, HUMAN 100 UNIT/ML 3 ML VIAL SQ PRN ×5 (00:12→23:45)
[2020-06-13 00:17] VITALS: BP 146/77
[2020-06-13] MEDS: ALBUTEROL FS 2.5 MG/3 ML VIAL.NEB NEB SCH ×4 (01:30→20:09)
[2020-06-13] MEDS: NEPRO 1,000 ML BOTTLE GT PRN (03:21)
[2020-06-13] MEDS: OMEPRAZOLE 20 MG CAPSULE.DR GT SCH (05:28)
[2020-06-13] MEDS: hydrOXYzine 10 MG TABLET GT SCH ×3 (05:28→21:22)
[2020-06-13] MEDS: GABAPENTIN 250 MG/5 ML GT SCH ×3 (05:28→21:22)
[2020-06-13 07:54] VITALS: BP 140/76
[2020-06-13] MEDS: SEVELAMER CARBONATE 800 MG POWD.PACK GT SCH ×3 (08:00→17:17)
[2020-06-13] MEDS: ASCORBIC ACID 500 MG TABLET GT SCH (09:23)
[2020-06-13] MEDS: VIT B CMPLX 3/FA/VIT C/BIOTIN 1 TAB TABLET GT SCH (09:23)
[2020-06-13] MEDS: PROSTAT (PYXIS) 30 ML UDC GT SCH ×3 (09:23→17:17)
[2020-06-13] MEDS: SIMETHICONE SUSP 40 MG/0.6 ML BOTTLE GT SCH ×2 (09:23→21:23)
[2020-06-13] MEDS: FERROUS SULFATE - FOR SA ONLY 330 MG/7.5 ML UDC GT SCH ×2 (09:23→21:22)
[2020-06-13] MEDS: TRILEPTAL GT SCH ×2 (09:23→21:23)
[2020-06-13] MEDS: LEVETIRACETAM SOL (5 ML) 100 MG/ML UDC GT SCH ×2 (09:23→21:23)
[2020-06-13] MEDS: ACIDOPHILUS/BULGARICUS 1 EACH TAB.CHEW GT SCH ×2 (09:23→17:17)
[2020-06-13] MEDS: HYDROGEN PEROXIDE 480 ML BOTTLE TP SCH ×2 (09:51→20:09)
--- NOTE | 2020-06-13 12:09 | NUR ---
Family Invite to IDT: STEPHEN emailed the pt.'s sister, Beckie Chu [phone] and invited them to participate in 06/15/2020 12:30 pm IDT meeting. STEPHEN will follow up as needed.
[2020-06-13 13:00] VITALS: BP 138/77
[2020-06-13 20:07] VITALS: BP 115/61
[2020-06-13] MEDS: DIPHENHYDRAMINE HCL 12.5 MG/5 ML UDC GT PRN (23:43)
[2020-06-14] MEDS: NEPRO 1,000 ML BOTTLE GT PRN (00:30)
[2020-06-14 00:52] VITALS: BP 124/62
[2020-06-14] MEDS: ALBUTEROL FS 2.5 MG/3 ML VIAL.NEB NEB SCH ×4 (01:17→19:05)
[2020-06-14] MEDS: hydrOXYzine 10 MG TABLET GT SCH ×3 (05:37→20:09)
[2020-06-14] MEDS: GABAPENTIN 250 MG/5 ML GT SCH ×3 (05:37→20:09)
[2020-06-14] MEDS: BLOOD SUGAR DIAGNOSTIC 1 EACH STRIP IN SCH ×3 (05:37→17:15)
[2020-06-14] MEDS: METOCLOPRAMIDE HCL 10 MG/10 ML UDC GT SCH ×3 (05:37→17:15)
[2020-06-14] MEDS: OMEPRAZOLE 20 MG CAPSULE.DR GT SCH (05:37)
[2020-06-14] MEDS: INSULIN REGULAR, HUMAN 100 UNIT/ML 3 ML VIAL SQ PRN ×2 (05:40→18:11)
[2020-06-14 07:40] VITALS: BP 125/69
[2020-06-14] MEDS: SEVELAMER CARBONATE 800 MG POWD.PACK GT SCH ×3 (08:00→17:15)
[2020-06-14] MEDS: ACETYLCYSTEINE 10% SOLN 400 MG/4 ML VIAL NEB SCH ×3 (08:09→23:26)
[2020-06-14] MEDS: LEVETIRACETAM SOL (5 ML) 100 MG/ML UDC GT SCH ×2 (09:35→20:09)
[2020-06-14] MEDS: ASCORBIC ACID 500 MG TABLET GT SCH (09:35)
[2020-06-14] MEDS: ACIDOPHILUS/BULGARICUS 1 EACH TAB.CHEW GT SCH ×2 (09:35→17:15)
[2020-06-14] MEDS: FERROUS SULFATE - FOR SA ONLY 330 MG/7.5 ML UDC GT SCH ×2 (09:35→20:09)
[2020-06-14] MEDS: SIMETHICONE SUSP 40 MG/0.6 ML BOTTLE GT SCH ×2 (09:35→20:09)
[2020-06-14] MEDS: PROSTAT (PYXIS) 30 ML UDC GT SCH ×3 (09:35→17:15)
[2020-06-14] MEDS: VIT B CMPLX 3/FA/VIT C/BIOTIN 1 TAB TABLET GT SCH (09:35)
[2020-06-14] MEDS: TRILEPTAL GT SCH ×2 (09:35→20:09)
[2020-06-14] MEDS: HYDROGEN PEROXIDE 480 ML BOTTLE TP SCH ×2 (09:57→19:05)
--- NOTE | 2020-06-14 11:26 | NUR ---
MDS: This SW completed the SS portion of 1st [facility] MDS. The patients sister / Conservator, Beckie Chu [phone] is very involved and supportive. The patient is lethargic, pleasant and non-communicative. The patient is Maximum Treatment & No CPR, ventilator dependent with trach and g-tube feeding (see other disciplines notes for details). The patients last dental exam and cleaning by Dr. Elliott was on 02/04/2019. The patients last optometry exam by Dr. Escalante was on 07/04/2019. The patients last podiatry exam by Dr. Michael was on 06/07/2020.
[2020-06-14] MEDS: DIPHENHYDRAMINE HCL 12.5 MG/5 ML UDC GT PRN (18:46)
[2020-06-14] MEDS: ACETAMINOPHEN 650 MG/20 ML UDC- SA PATIENTS-PAIN ONLY GT PRN (18:47)
--- NOTE | 2020-06-14 19:30 | NUR ---
Per AM shift report patient with episodes of SOB,notified MANAGER OF DIGITAL Anna Vargas during rounds and order to to do CXR stat.Will carry out.
[2020-06-14] MEDS: HYDROGEL DRESSING 90 GM TUBE TP SCH (20:09)
[2020-06-14] MEDS: Z GUARD REMEDY 2 OZ OINT TP SCH (20:09)
[2020-06-14] MEDS: CLOTRIMAZOLE 1% 15 GM TUBE TP SCH (20:09)
[2020-06-14 20:16] VITALS: BP 127/80
--- NOTE | 2020-06-14 20:30 | NUR ---
Relayed results of CXR to GLUE MAKER BONE Anna Vargas,no new order but she recommend to let the outside collector know of results and may consider extra dialysis that probably benefits patient. Will endorse in AM to call the outside collector.Patient with no respiratory distress at this time,O2 sats 98%,calm and sleeping.Will continue to monitor.
[2020-06-15] MEDS: ACETYLCYSTEINE 10% SOLN 400 MG/4 ML VIAL NEB SCH ×3 (00:30→15:42)
[2020-06-15] MEDS: BLOOD SUGAR DIAGNOSTIC 1 EACH STRIP IN SCH ×4 (00:37→17:50)
[2020-06-15] MEDS: METOCLOPRAMIDE HCL 10 MG/10 ML UDC GT SCH ×4 (00:37→17:50)
[2020-06-15] MEDS: INSULIN REGULAR, HUMAN 100 UNIT/ML 3 ML VIAL SQ PRN ×4 (00:38→17:51)
[2020-06-15 00:52] VITALS: BP 137/78
[2020-06-15] MEDS: ALBUTEROL FS 2.5 MG/3 ML VIAL.NEB NEB SCH ×4 (02:09→19:58)
[2020-06-15] MEDS: hydrOXYzine 10 MG TABLET GT SCH ×3 (05:45→21:55)
[2020-06-15] MEDS: GABAPENTIN 250 MG/5 ML GT SCH ×3 (05:45→21:56)
[2020-06-15] MEDS: OMEPRAZOLE 20 MG CAPSULE.DR GT SCH (05:45)
[2020-06-15] MEDS: NEPRO 1,000 ML BOTTLE GT PRN (05:46)
[2020-06-15 07:39] VITALS: BP 132/72
[2020-06-15] MEDS: SEVELAMER CARBONATE 800 MG POWD.PACK GT SCH ×3 (08:00→17:50)
[2020-06-15] MEDS: HYDROGEN PEROXIDE 480 ML BOTTLE TP SCH ×2 (09:00→19:58)
--- NOTE | 2020-06-15 09:03 | NUR ---
Sent message to Dr. Kumar regarding the episode of SOB when the patient came back from dialysis yesterday, per NAN Castillo she might need extra dialysis. Awaiting for call back. Resident awake, appears comfortable. No s/s of resp. distress, resp. even and unlabored. O2 sat. 99%, afebrile. Will continue to monitor.
[2020-06-15] MEDS: ASCORBIC ACID 500 MG TABLET GT SCH (09:32)
[2020-06-15] MEDS: PROSTAT (PYXIS) 30 ML UDC GT SCH ×3 (09:32→17:50)
[2020-06-15] MEDS: LEVETIRACETAM SOL (5 ML) 100 MG/ML UDC GT SCH ×2 (09:32→21:58)
[2020-06-15] MEDS: CLOTRIMAZOLE 1% 15 GM TUBE TP SCH ×2 (09:32→21:58)
[2020-06-15] MEDS: VIT B CMPLX 3/FA/VIT C/BIOTIN 1 TAB TABLET GT SCH (09:32)
[2020-06-15] MEDS: FERROUS SULFATE - FOR SA ONLY 330 MG/7.5 ML UDC GT SCH ×2 (09:32→21:55)
[2020-06-15] MEDS: HYDROGEL DRESSING 90 GM TUBE TP SCH ×2 (09:32→21:58)
[2020-06-15] MEDS: SIMETHICONE SUSP 40 MG/0.6 ML BOTTLE GT SCH ×2 (09:32→21:58)
[2020-06-15] MEDS: ACIDOPHILUS/BULGARICUS 1 EACH TAB.CHEW GT SCH ×2 (09:32→17:50)
[2020-06-15] MEDS: Z GUARD REMEDY 2 OZ OINT TP SCH ×2 (09:32→21:58)
[2020-06-15] MEDS: TRILEPTAL GT SCH ×2 (09:32→21:58)
--- NOTE | 2020-06-15 16:05 | NUR ---
INTERDISCIPLINARY PLAN OF CARE CONFERENCE was held today. The patients conservator, Beckie Chu [phone] did not participate via phone conference. Charge nurse discussed chest X-RAY 06/14/2020. Dr. Felix and Interdisciplinary team discussed the plan of care in detail. Current orders as well as treatments and medications were reviewed. See other disciplines IDT notes for further details
--- NOTE | 2020-06-15 16:22 | NUR ---
SW received call from the pt.'s sister, Beckie Chu [phone] requesting video call with pt. 06/16/2020. STEPHEN informed it coordinator Louie who will facilitate calls as needed on 06/16/20.
[2020-06-15 20:23] VITALS: BP 146/71
[2020-06-15] MEDS: ACETAMINOPHEN 650 MG/20 ML UDC- SA PATIENTS-PAIN ONLY GT PRN (21:30)
[2020-06-16] VITALS: BP 125/72
[2020-06-16] MEDS: BLOOD SUGAR DIAGNOSTIC 1 EACH STRIP IN SCH ×4 (00:07→18:10)
[2020-06-16] MEDS: METOCLOPRAMIDE HCL 10 MG/10 ML UDC GT SCH ×4 (00:07→18:10)
[2020-06-16] MEDS: NEPRO 1,000 ML BOTTLE GT PRN (00:08)
[2020-06-16] MEDS: INSULIN REGULAR, HUMAN 100 UNIT/ML 3 ML VIAL SQ PRN ×4 (00:11→18:11)
[2020-06-16] MEDS: ALBUTEROL FS 2.5 MG/3 ML VIAL.NEB NEB SCH ×4 (00:31→19:29)
[2020-06-16] MEDS: hydrOXYzine 10 MG TABLET GT SCH ×3 (05:33→21:52)
[2020-06-16] MEDS: OMEPRAZOLE 20 MG CAPSULE.DR GT SCH (05:33)
[2020-06-16] MEDS: GABAPENTIN 250 MG/5 ML GT SCH ×3 (05:33→21:52)
--- NOTE | 2020-06-16 06:34 | NUR ---
PATIENT RECEIVED ON TRACH TO VENT WITH SETTINGS OF AC 12, 500 Vt, 30%, +5. SUCTIONED FOR MINIMAL, THIN, WHITE SECRETIONS. GIVEN IN-LINE TREATMENTS WITH NO ADVERSE REACTIONS. AMBU BAG AT BEDSIDE. VENT AND PULSE OXIMETER ALARMS AUDIBLE AND VISIBLE. VENT PLUGGED INTO RED OUTLET. Addendum: 06/16/20 at 0635 by SARA MOLINA RT Amended: Links added.
[2020-06-16] MEDS: ACETYLCYSTEINE 10% SOLN 400 MG/4 ML VIAL NEB SCH ×3 (07:35→23:00)
[2020-06-16 07:39] VITALS: BP 142/77
[2020-06-16] MEDS: SEVELAMER CARBONATE 800 MG POWD.PACK GT SCH ×3 (08:00→18:10)
[2020-06-16] MEDS: HYDROGEN PEROXIDE 480 ML BOTTLE TP SCH ×2 (09:16→19:29)
[2020-06-16] MEDS: LEVETIRACETAM SOL (5 ML) 100 MG/ML UDC GT SCH ×2 (09:27→21:52)
[2020-06-16] MEDS: SIMETHICONE SUSP 40 MG/0.6 ML BOTTLE GT SCH ×2 (09:27→21:52)
[2020-06-16] MEDS: FERROUS SULFATE - FOR SA ONLY 330 MG/7.5 ML UDC GT SCH ×2 (09:27→21:52)
[2020-06-16] MEDS: VIT B CMPLX 3/FA/VIT C/BIOTIN 1 TAB TABLET GT SCH (09:27)
[2020-06-16] MEDS: PROSTAT (PYXIS) 30 ML UDC GT SCH ×3 (09:27→17:00)
[2020-06-16] MEDS: TRILEPTAL GT SCH ×2 (09:27→21:52)
[2020-06-16] MEDS: ASCORBIC ACID 500 MG TABLET GT SCH (09:27)
[2020-06-16] MEDS: ACIDOPHILUS/BULGARICUS 1 EACH TAB.CHEW GT SCH ×2 (09:27→17:00)
[2020-06-16] MEDS: HYDROGEL DRESSING 90 GM TUBE TP SCH ×2 (09:27→21:52)
[2020-06-16] MEDS: CLOTRIMAZOLE 1% 15 GM TUBE TP SCH ×2 (09:28→21:52)
[2020-06-16] MEDS: Z GUARD REMEDY 2 OZ OINT TP SCH ×2 (09:29→21:52)
--- NOTE | 2020-06-16 16:30 | NUR ---
Patient return from dialysis center, was connected to ventilator, suctioned at arrival from trach and vent with minimal secretions, no respiratory distress, call light within reach.
[2020-06-16 20:32] VITALS: BP 137/72
[2020-06-17] MEDS: BLOOD SUGAR DIAGNOSTIC 1 EACH STRIP IN SCH ×5 (00:15→23:58)
[2020-06-17] MEDS: METOCLOPRAMIDE HCL 10 MG/10 ML UDC GT SCH ×5 (00:15→23:58)
[2020-06-17] MEDS: INSULIN REGULAR, HUMAN 100 UNIT/ML 3 ML VIAL SQ PRN ×5 (00:16→23:59)
[2020-06-17 00:20] VITALS: BP 148/75
[2020-06-17] MEDS: ALBUTEROL FS 2.5 MG/3 ML VIAL.NEB NEB SCH ×4 (01:34→19:38)
[2020-06-17] MEDS: hydrOXYzine 10 MG TABLET GT SCH ×3 (05:45→20:33)
[2020-06-17] MEDS: GABAPENTIN 250 MG/5 ML GT SCH ×3 (05:45→20:35)
[2020-06-17] MEDS: OMEPRAZOLE 20 MG CAPSULE.DR GT SCH (05:46)
[2020-06-17] MEDS: NEPRO 1,000 ML BOTTLE GT PRN (05:46)
[2020-06-17] MEDS: SEVELAMER CARBONATE 800 MG POWD.PACK GT SCH ×3 (08:00→17:56)
[2020-06-17 08:14] VITALS: BP 155/77
[2020-06-17] MEDS: ACETYLCYSTEINE 10% SOLN 400 MG/4 ML VIAL NEB SCH ×3 (08:28→22:55)
[2020-06-17] MEDS: ACIDOPHILUS/BULGARICUS 1 EACH TAB.CHEW GT SCH ×2 (09:00→17:56)
[2020-06-17] MEDS: TRILEPTAL GT SCH ×2 (09:00→20:36)
[2020-06-17] MEDS: SIMETHICONE SUSP 40 MG/0.6 ML BOTTLE GT SCH ×2 (09:00→20:38)
[2020-06-17] MEDS: HYDROGEN PEROXIDE 480 ML BOTTLE TP SCH ×2 (09:00→19:38)
[2020-06-17] MEDS: ASCORBIC ACID 500 MG TABLET GT SCH (09:00)
[2020-06-17] MEDS: Z GUARD REMEDY 2 OZ OINT TP SCH ×2 (09:00→20:38)
[2020-06-17] MEDS: HYDROGEL DRESSING 90 GM TUBE TP SCH ×2 (09:00→20:38)
[2020-06-17] MEDS: LEVETIRACETAM SOL (5 ML) 100 MG/ML UDC GT SCH ×2 (09:00→20:37)
[2020-06-17] MEDS: FERROUS SULFATE - FOR SA ONLY 330 MG/7.5 ML UDC GT SCH ×2 (09:00→20:34)
[2020-06-17] MEDS: VIT B CMPLX 3/FA/VIT C/BIOTIN 1 TAB TABLET GT SCH (09:00)
[2020-06-17] MEDS: CLOTRIMAZOLE 1% 15 GM TUBE TP SCH ×2 (09:00→20:38)
[2020-06-17] MEDS: PROSTAT (PYXIS) 30 ML UDC GT SCH ×3 (09:00→17:56)
[2020-06-17] MEDS: ACETAMINOPHEN 650 MG/20 ML UDC- SA PATIENTS-PAIN ONLY GT PRN (17:59)
--- NOTE | 2020-06-17 19:15 | NUR ---
RN NOTES Pt noted having seizure, facial twitching. Unable to obtain IV access. Authorization from [employer] to open narcotic e-kit. Ativan 1mg via gt given as ordered. Will continue to monitor.
--- NOTE | 2020-06-17 20:00 | NUR ---
RN NOTES No further seizures noted. Medication effective. Will continue to monitor.
[2020-06-17 20:49] VITALS: BP 105/62
[2020-06-18] VITALS: BP 122/64
--- NOTE | 2020-06-18 | NUR ---
RN NOTES Pt noted with elevated HR 130-140s. Tylenol Given for facial grimacing, as ordered. No respiratory distress at this time. Will continue to monitor.
[2020-06-18] MEDS: ALBUTEROL FS 2.5 MG/3 ML VIAL.NEB NEB SCH (01:28)
--- NOTE | 2020-06-18 04:00 | NUR ---
RN NOTES Noted pt with SOB, tachycardic. B/P 98/62, HR 133, RR 30, T 100.1, O2 sat 98% on 30% FiO2. Called on-call hospitalist, Dr. Kevin Cummings DNP and received order for ABG and call back with results. Will have ABG drawn for further orders.
[2020-06-18 04:41] LABS: ABG BASE EXCESS -8.4 mmol/L; ABG OXYGEN SATURATION 80.1 % (92.0-98.5); ABG PCO2 52.7 mmHg (35.0-45.0); ABG PH 7.192 (7.350-7.450); COHb 0.9 % (0.5-1.5); MetHb 0.3 % (0.0-1.5); O2Hb 79.1 % (94.0-97.0); SITE, ABG Right Brachial; VENT MODE, BG AC 12 500 30% +5
--- NOTE | 2020-06-18 04:45 | NUR ---
RN NOTES Pt seen adn examined by Dr. Kevin Cummings and ordered to transfer to ICU. Report given to ICU nurse. Responsible libertarian called, sister, Beckie, to notify of change in condition and of transfer to ICU. Call appreciated and questions regarding pt's condition discussed.
--- NOTE | 2020-06-18 09:39 | NUR ---
Home & Bereavement Resources: STEPHEN notified by charge nurse that pt. this morning. STEPHEN called the pt.'s conservator, Beckie Chu [phone] to be provide emotional support. Beckie expressed appreciation. SW provided empathetic listening and normalized pt.'s emotions. STEPHEN educated Beckie regarding stages of loss & grief and offered bereavement resources. Beckie was receptive. STEPHEN emailed Beckie list of Bereavement/Grief Resources including: [facility] [phone]; [facility] Jesu [phone]; [facility] [place] [phone]; [facility] [phone]. STEPHEN inquired if Beckie has arrangements for pt. Beckie stated she does not. SW provide the following resources: [facility][[address] [place] [address];[phone]], [place] [place][[address] [address];[phone]]; [employer] [[address] [place] [address];[phone] ;[phone] (fax)], [employer] ([facility])[address] [place], [place] [address]; [phone]]. Beckie thanked STEPHEN and expressed appreciation for care provided to the pt. by [facility] nursing. STEPHEN will be available to provide support to family.
--- NOTE | 2020-06-18 10:39 | NUR ---
STEPHEN called [facility] [phone] and spoke with Greta to cancel HD. Greta expressed understanding. [phone] and spoke to a surgical sales representative to cancel ongoing transportation for HD.
--- NOTE | 2020-06-21 15:03 | NUR ---
The pt.'s sister/Conservator, Beckie Chu [phone] dropped off completed & signed admission paperwork (Patient Right's Acknowledgement, Documentation of Preferred Intensity of Care, Conditions of Admission, [facility] Agreement, and Voluntary Prior Express Consent form, Important Message from Medicare). Admission paperwork to be sent to medical records.
[2020-08-12] MEDS ORDERED: TUBERCULIN,PURIF.PROT.DERIV. 5 TU/0.1 ML VIAL ID SCH (09:30)
== END 2020-06-18 05:00 | disposition short-term general hospital (02) | DRG 207 ==
LOC: EDSEX → SA 00:01
PROVIDERS: ADMIT Internal Medicine; ATTEND Internal Medicine
PROC: 5A1955Z Respiratory Ventilation, Greater than 96 Consecutive Hours (ICD-10-PCS; principal; 2020-06-08)
DX: J96.11 Chronic respiratory failure with hypoxia (principal); N18.6 End stage renal disease; I13.2 Hypertensive heart and chronic kidney disease with heart failure and with stage 5 chronic kidney disease, or end stage renal disease; G93.40 Encephalopathy, unspecified; I25.10 Atherosclerotic heart disease of native coronary artery without angina pectoris; Z99.2 Dependence on renal dialysis; K21.9 Gastro-esophageal reflux disease without esophagitis; F09 Unspecified mental disorder due to known physiological condition; D63.8 Anemia in other chronic diseases classified elsewhere; E11.22 Type 2 diabetes mellitus with diabetic chronic kidney disease; I50.9 Heart failure, unspecified; G40.909 Epilepsy, unspecified, not intractable, without status epilepticus
CPT/HCPCS: 31720; 36600; 71045-TC; 82962-TC; 94003-TC; 94760-TC; 94762-TC; 94799-TC; A4623; A6248; A6253; A7526; Q0163; Q0177; U0003

== ENCOUNTER 2020-06-18 04:35 | Inpatient (IN) | payer MEDICARE, OTHER ==
[2020-06-18] MEDS ORDERED: PIPERACILLIN /TAZOBACTAM 3.375 G in IV D5W 50 ML IV SCH (05:00)
[2020-06-18] MEDS ORDERED: MAGNESIUM HYDROXIDE 30 ML UDC PO PRN (05:00)
[2020-06-18] MEDS ORDERED: NOREPINEPHRINE 8 MG in IV NS 0.9% 242 ML IV PRN (05:00)
[2020-06-18] MEDS ORDERED: ACETAMINOPHEN 325 MG TABLET PO PRN (05:00)
[2020-06-18] MEDS ORDERED: ONDANSETRON HCL/PF 4 MG/2 ML VIAL IVP PRN (05:00)
[2020-06-18] MEDS ORDERED: MORPHINE SULFATE INJ 2 MG/ML DISP.SYRIN IV PRN (05:00)
[2020-06-18] MEDS ORDERED: MAG HYDROX/AL HYDROX/SIMETH 30 ML UDC PO PRN (05:00)
[2020-06-18] MEDS ORDERED: Z GUARD REMEDY 2 OZ OINT TP PRN (05:00)
[2020-06-18] MEDS ORDERED: HYDROCODONE/APAP 5/325MG TABLET GT PRN (05:00)
--- NOTE | 2020-06-18 07:27 | NUR ---
apiculture teacher,. transfer the pt from subacute for low blood pressure and desaturated. received the pt monitor showing junctional rhythm. then simi and asystole. pt code status was DNR. CHRONIC TRACH AND PEG . PT WAS ON VENT. PRONOUNCED BY IKER LADD, NOTIFIED [facility]. LEGACY BODY RELEASED. POST MORTEM CARE GIVEN . BODY SEND TO [facility]
[2020-06-18] MEDS ORDERED: PANTOPRAZOLE 40 MG VIAL IV SCH (09:00)
[2020-06-18] MEDS ORDERED: HEPARIN SODIUM, PORCINE 5000 UNITS/1 ML VIAL SQ SCH (09:00)
== END 2020-06-18 05:10 | disposition expired | DRG 871 ==
LOC: EDSEX 04:35 → ICU 04:35
PROVIDERS: ADMIT Nurse Practitioner Acute Care; ATTEND Nurse Practitioner Acute Care
PROC: 5A1935Z Respiratory Ventilation, Less than 24 Consecutive Hours (ICD-10-PCS; principal; 2020-06-18)
DX: A41.9 Sepsis, unspecified organism (principal); J96.01 Acute respiratory failure with hypoxia; R53.2 Functional quadriplegia; R65.21 Severe sepsis with septic shock; N18.6 End stage renal disease; J69.0 Pneumonitis due to inhalation of food and vomit; I12.0 Hypertensive chronic kidney disease with stage 5 chronic kidney disease or end stage renal disease; M62.82 Rhabdomyolysis; G93.40 Encephalopathy, unspecified; K21.9 Gastro-esophageal reflux disease without esophagitis; F09 Unspecified mental disorder due to known physiological condition; E78.5 Hyperlipidemia, unspecified; Z66 Do not resuscitate; R13.10 Dysphagia, unspecified; Y95 Nosocomial condition; Z99.2 Dependence on renal dialysis; D63.8 Anemia in other chronic diseases classified elsewhere; E11.22 Type 2 diabetes mellitus with diabetic chronic kidney disease; Z79.4 Long term (current) use of insulin; Z79.51 Long term (current) use of inhaled steroids; Z79.899 Other long term (current) drug therapy; G40.909 Epilepsy, unspecified, not intractable, without status epilepticus; I25.10 Atherosclerotic heart disease of native coronary artery without angina pectoris; Z93.1 Gastrostomy status; Z93.0 Tracheostomy status
CPT/HCPCS: A6403; G0378